=== PATIENT | female | born 1985 | race Hispanic/Latino ===

== ENCOUNTER 2021-09-06 19:39 | Emergency (ER) | payer OTHER ==
--- OUTSIDE RECORDS SUMMARY | 2021-09-06 19:43 | XMS REPORT | Continuity of Care Document ---
:1985 Author Organization [facility] t Address [address] [place] [address] Care Team Providers Name Role Phone Bird LEI Primary Care Physician Scooter Morley MD Attending Clinician Payers Payer Name Policy Type Policy Number Effective Date Expiration Date S ource Problems Condition Condition Condition Status Onset Resolution Last Treating Co mments Source Name Details Category Date Date Treatment Clinician Date External External Disease Active Unive rs hemorrhoid hemorrhoid 5-17 it y of s s 00:00: [place] 00 Medical Branch Grade II Grade II Disease Active Overview: Un joby internal internal 5-14 Formattin ity of hemorrhoid hemorrhoid 00:00: g of this [place] s s 00 note Medical might be Branch different from the original. Added automatic ally from request for surgery [id number] Sacroiliit Sacroiliit Disease Active Overview : Univers is is 2-11 Formattin ity of 00:00: g of this [place] 00 note Medical might be Branch different from the original. Added automatic ally from request for surgery [id number] Loose Loose Disease Active 2019-08 Overview: Univer s stools stools 0-02 Formattin ity of 00:00: g of this [place] 00 note Medical might be Branch different from the original. Added automatic ally from request for surgery [id number] Blood in Blood in Disease Active 2019-08 Overview: Un joby stool stool 0-02 Formattin ity of 00:00: g of this [place] 00 note Medical might be Branch different from the original. Added automatic ally from request for surgery [id number] Pre-eclamp Pre-eclamp Disease Active U nivers teodora teodora 9-12 ity of affecting affecting 00:[place] , , 00 Me dical antepartum antepartum Br anch Latex Latex Disease Active Univers allergy allergy 9-05 ity of 00:00: [place] 00 Medical Branch Sciatic Sciatic Disease Active Univers nerve nerve 7-01 ity of disease, disease, 00:00: [place] right right 00 Medical Branch Modified Modified Disease Active Unive rs White White 5-30 ity of class B class B 00:00: [place] pregestati pregestati 00 Me dical onal onal Branch diabetes diabetes mellitus mellitus Obesity Obesity Disease Active Univers (BMI (BMI 5-21 ity of 30-39.9) 30-39.9) 00:00: [place] 00 Medical Branch Chronic Chronic Disease Active Univers bilateral bilateral 8-21 ity of low back low back 00:00: [place] pain pain 00 Medical without without Branch sciatica sciatica Bronchitis Bronchitis Disease Active Overview : Univers Formattin ity of g of this [place] note Medical might be Branch different from the original. COPD v. asthma Anxiety Anxiety Disease Active Univers ity of [facility] Fatty Fatty Disease Active Univers liver liver ity of [facility] Allergies, Adverse Reactions, Alerts Allergy Allergy Status Severity Reaction(s) Onset Inactive Treating Comm ents Source Name Type Date Date Clinician Latex Propensi Active Rash 2005- Univers ty to 4-26 ity of adverse 00:00: [place] reaction 00 Medical s Branch Social History Social Habit Start Date Stop Date Quantity Comments Source History of tobacco 2016-12-31 Cigarette Smoker University of use 00:00:00 [facility] Exposure to Not sure [facility] SARS-CoV-2 (event) [facility] Alcohol intake 2021-09-06 2021-09-06 Current University of 00:00:00 00:00:00 non-drinker of [facility] alcohol Branch (finding) Cigarettes smoked 2020-11-26 2020-11-26 Univers ity of current (pack per 00:00:00 00:00:00 ) - Reported Branch Cigarette 2020-11-26 2020-11-26 University of pack-years 00:00:00 00:00:00 [facility] Tobacco use and 2020-11-26 2020-11-26 Never used Universit y of exposure 00:00:00 00:00:00 [facility] Tobacco Comment 2020-10-13 2020-10-13 vapes Universit y of 00:00:00 00:00:00 [facility] Sex Ass[birth year] At [birth year] Universit y of 00:00:00 00:00:00 [facility] Smoking Status Start Date Stop Date Source Former smoker 2020-11-26 00:00:00 2020-11-26 00:00:00 Universi ty [facility] Medications Ordered Filled Start Stop Current Ordering Indication Dosage Frequency Signature Comments Components Source Medication Medication Date Date Medication? Clinician (SIG) Name Name tera Yes 5mL Take 5 mL U nivers ifenesin 1-25 by mouth ity of 10-100 mg/5 00:00: every 4 [place] as mL oral 00 (four) Medical solution hours as Branch needed for Cough. Indication s: cough proMETHazin Yes [id number] 25mg Take 2 Univers e 12.5 mg 1-25 tablets by ity of tablet 00:00: mouth [place] 00 every 6 Medical (six) Branch hours as needed for Other (vertigo). insulin NPH Yes [id number] INJECT 20 Univers (NOVOLIN N 1-25 UNITS ity of NPH U-100 00:[place] INSULIN[place] 00 USLY ONCE Medica l 100 unit/mL DAILY WITH Br anch injection BREAKFAST escitalopra Yes [id number] 20mg Take 1 Univers m oxalate 1-25 tablet by ity o f (LEXAPRO) 00:00: mouth [place] 20 mg 00 daily. Medical tablet Branch NOVOLIN R Yes [id number] INJECT 15 Univers REGULAR 1-21 UNITS ity of U-100 00:00: SUBCUTANEO [place] INSULN 100 00 USLY THREE Med ical unit/mL TIMES Branch solution DAILY BEFORE MEAL(S) HYDROXYZINE Yes [id number] TAKE 1 TO Univers 25 mg 1-21 2 TABLETS ity of tablet 00:00: BY MOUTH [place] 00 EVERY 6 Medical HOURS Branch NEEDED FOR ANXIETY MONTELUKAST Yes [id number] Take 1 Univers 10 mg 1-03 tablet by ity of tablet 00:00: mouth once [place] 00 daily Medical Branch MELOXICAM 2020-08 Yes [id number] Take 1 Un joby 15 mg 2-23 tablet by ity of tablet 00:00: mouth once [place] 00 daily Medical Branch NUVARING 2020-08 Yes [id number] 1{each} Insert 1 Univers (NUVARING) 1-15 Each into ity of 0.12-0.015 00:00: vagina [place] mg/24 hr 00 once every Medic al vaginal month. Branch insert Insert vaginally and leave in place for 3 consecutiv e weeks, then remove for 1 week. gabapentin 2020-08 Yes [id number] 400mg Take 1 Univers 400 mg 1-15 9100 capsule by ity of capsule 00:00: mouth 3 (three) [facility] daily. metformin 2020-08 Yes [id number] TAKE 2 U nivers ER 500 mg 1-15 TABLETS BY ity of 24 hr 00:00: MOUTH ONCE [place] tablet 00 DAILY IN Medical THE Branch MORNING AND 3 ONCE DAILY IN THE EVENING. Needs follow up visit for further refills glyBURIDE 5 2020-08 Yes [id number] 5mg Take 1 Univers mg tablet 1-15 tablet by ity o f 00:00: mouth 2 (two) [facility] daily with meals. Needs follow up visit for further refills atorvastati 2020-08 Yes [id number] 20mg Take 1 Univers n 20 mg 1-15 tablet by ity of tablet 00:00: mouth at [place] 00 bedtime. Medical Branch Guaifenesin 2020-08 Yes [id number] 5 ml po q Univers 200 mg/5 mL 1-13 6 h prn ity o f Liqd 00:00: cough 00 Medical Branch mupirocin 2 2020-08 Yes [id number] Apply to Univers % ointment 0-25 area(s) 3 ity of 00:00: (three) [place] 00 times Medical daily. Branch semaglutide Yes [id number] 1mg inject 1 Univers (OZEMPIC) 1 9-13 mg under ity of mg/dose (2 00:00: the skin [place] as mg/1.5 mL) 00 weekly. Medica l PnIj Branch empaglifloz Yes [id number] 10mg Take 1 Univers in 9-13 tablet by ity of (JARDIANCE) 00:00: mouth [place] 00 daily. Medical Branch tiZANidine Yes [id number] 4mg Take 1 Univers 4 mg tablet 8-12 9100 tablet by ity of 00:00: mouth 3 [place] 00 (three) Medical times Branch daily as needed (muscle spasm). albuterol Yes [id number] 2{puff} Inhale 2 Univers 90 7-07 Puffs ity of mcg/actuati 00:00: every 6 [place] as on inhaler 00 (six) Medical hours as Branch needed for Wheezing or Shortness of Breath. hydrocortis Yes [id number] 1{appli Insert 1 Univers one-pramovi 5-03 cator} Applicator ity of ne rectal 00:00: into [place] foam 00 rectum 2 Medical (two) Branch times daily. Insulin 2019-08 Yes Use as Univers Syringe-Nee 1-12 directed ity of dle U-100 1 00:00: [place] mL 31 gauge 00 Medical x 12/26 Syrg Branch Immunizations Ordered Filled Immunization Date Status Comments [facility] e Immunization Name Name Influenza Virus 2021-07-01 Completed Universit y of Vaccine Quad .5 mL 00:00:00 [facility] IM 6+ MO Branch Pneumococcal 2020-07-13 Completed [place] o f Polysaccharide, 00:00:00 [facility] ical PPSV23 (PNEUMOVAX) Branch Influenza Virus 2020-05-13 Completed Universit y of Vaccine Quad .5 mL 00:00:00 [place] [facility] IM 6+ MO Branch Influenza Virus 2017-05-29 Completed Universit y of Vaccine Quad IM 3+ 00:00:00 [facility] YRS Branch MMR 2017-04-29 Completed [facility] 00:00:00 [facility] TDAP 2017-02-28 Completed [facility] 00:00:00 [facility] TDAP 2012-08-26 Completed [facility] 00:00:00 [facility] Procedures This patient has no known procedures. Plan of Care Planned Activity Planned Date Details Comments Source Encounters Start End Encounter Admission Attending Care Care Encounter Source Date/Time Date/Time Type Type Clinicians Facility Department ID 2021-09-06 2021-09-06 Telephone CAROLE Morley [id number] Univers 00:00:00 00:00:00 Bautista WHEELER [id number] ity of Scooter LUCAS [id number] [facility] [id number] [facility] AND JAVIER [facility] Branch DIABETES [facility]IC Results This patient has no known results.
[2021-09-06] MEDS ORDERED: ACETAMINOPHEN 325 MG TABLET ONE (22:06)
[2021-09-06] MEDS ORDERED: NA CHLORIDE 0.9% 1,000 ML ONE (22:07)
[2021-09-06] MEDS ORDERED: MEPERIDINE HCL 25 MG/ML SYR ONE (22:07)
[2021-09-06] MEDS ORDERED: ONDANSETRON 4 MG/2 ML VIAL ONE (22:07)
[2021-09-06 22:26] LABS: Absolute Lymphocytes (CBC) 2.4 K/uL (0.7-4.9); Hematocrit 42.9 % (36.0-45.0); Lymphocytes % 21.9 % (15.3-44.8); MPV 10.2 fL (7.6-11.3); RBC Red Blood Cell Count 4.83 M/uL (3.86-4.86)
[2021-09-06 23:02] LABS: ALT/SGPT 24 U/L (12-78); AST/SGOT 8 U/L (15-37); Alkaline Phosphatase 48 U/L (45-117); BUN Blood Urea Nitrogen 23 mg/dL (7-18); Bicarbonate 24 mmol/L (21-32); Bilirubin Direct < 0.1 mg/dL (0-0.2); Bilirubin Total 0.4 mg/dL (0.2-1.0); Glucose Level 82 mg/dL (74-106); Lipase 335 U/L (73-393); Potassium 3.7 mmol/L (3.5-5.1); Protein, Total 8.3 g/dL (6.4-8.2); Sodium Level 142 mmol/L (136-145)
[2021-09-06 23:18] LABS: SARS-COV-2 RT PCR NEGATIVE (NEGATIVE)
--- NOTE | 2021-09-06 23:45 | ER ---
Nurse's Notes [facility] Name: Kelsey Harrell Age: 36 yrs Sex: Female : 1985 Arrival Date: 09/06/2021 Time: 19:44 Bed 23 Private MD: Diagnosis: Headache Presentation: 09/06 20:39 Chief complaint: Patient states: Ever since my lateral injections in my back I have had ll3 had N/V, dizziness, and headaches that causes my eye to twitch, symptoms started to get bad about 1 week ago. Coronavirus screen: cough unrelated to allergies, fatigue, headache, nausea, vomiting. Client presents with at least one sign or symptom that may indicate coronavirus-19. Standard/surgical mask placed on the client. Ebola Screen: No symptoms or risks identified at this time. Initial Sepsis Screen: Does the patient meet any 2 criteria? No. Patient's initial sepsis screen is negative. Initial Sepsis Screen: Does the patient have a suspected source of infection? No. Patient's initial sepsis screen is negative. Risk Assessment: Do you want to hurt yourself or someone else? Patient reports no desire to harm self or others. Onset of symptoms was August 30, 2021. 20:39 Method Of Arrival: Ambulatory ll3 20:39 Acuity: LENA 3 ll3 Triage Assessment: 20:48 Headache History: Other Since last week. General: Appears in no apparent distress. ll3 uncomfortable, Behavior is calm, cooperative, anxious. Pain: Complains of pain in H/A, Abdominal pain Pain currently is 6 out of 10 on a pain scale. Pain began last week. Pain: Also complains of nausea, inability to concentrate. EENT: Reports blurred vision nasal discharge ringing in right ear and left ear Denies nasal congestion. Neuro: Level of Consciousness is awake, alert, obeys commands, Oriented to person, place, time, situation, Reports dizziness, headache that is the "worst ever", H/A causes eyes to twitch . Cardiovascular: Patient's skin is warm and dry. Respiratory: Respiratory effort is even, unlabored, Respiratory pattern is regular, symmetrical, Breath sounds are clear bilaterally. GI: Abdomen is round non-distended, Bowel sounds present X 4 quads. Abd is soft and non tender X 4 quads. Reports epigastric pain, gaseousness, intolerance of fluids, intolerance of food, nausea, vomiting. Derm: Skin is pink, warm \\T\\ dry. 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 - Social history:: Smoking status: Patient reports the use of cigarette tobacco products, denies chronic smoking, but will smoke occasionally, Reported history of juuling and/or vaping. - Family history:: not pertinent. - Hospitalizations: : No recent hospitalization is reported. Screenin:49 Abuse screen: Denies threats or abuse. Denies injuries from another. Nutritional ab2 screening: No deficits noted. Tuberculosis screening: No symptoms or risk factors identified. Fall Risk None identified. Assessment: 21:48 General: Appears in no apparent distress. comfortable, Behavior is calm, cooperative, ab2 appropriate for age. Pain: Complains of pain in face, right ear and left ear Pain currently is 8 out of 10 on a pain scale. Neuro: Level of Consciousness is awake, alert, obeys commands, Oriented to person, place, time, situation, Appropriate for age Rectification Printer are equal bilaterally Moves all extremities. Gait is steady, Speech is normal, Facial symmetry appears normal. Neuro: Reports headache in entire. Cardiovascular: No deficits noted. Denies chest pain, shortness of breath, Patient's skin is warm and dry. Chest pain is denied. Respiratory: No deficits noted. Airway is patent Denies cough, shortness of breath. GI: Reports nausea, vomiting. GI: Abdomen is round obese, Bowel sounds present X 4 quads. : No deficits noted. No signs and/or symptoms were reported regarding the genitourinary system. EENT: No deficits noted. No signs and/or symptoms were reported regarding the EENT system. Derm: No deficits noted. No signs and/or symptoms reported regarding the dermatologic system. Musculoskeletal: Reports pain in back since chronic. 09/07 00:09 Reassessment: Patient is alert, oriented x 3, equal unlabored respirations, skin bb warm/dry/pink. pt verbalized understanding of and agrees to plan of care discharge instructions given pt ambulated with steady gait to exit. Vital Signs: 09/06 20:39 BP 123 / 80; Pulse 86; Resp 18; Temp 99.1(TE); Pulse Ox 97% on R/A; Weight 92.08 kg ll3 (R); Height 5 ft. 4 in. (162.56 cm) (R); Pain 6/10; 21:50 BP 124 / 68; Pulse 88; Resp 17; Pulse Ox 98% on R/A; ab2 09/07 00:10 BP 129 / 75; Pulse 71; Resp 16 S; Temp 98.4(O); Pulse Ox 99% on R/A; bb 09/06 20:39 Body Mass Index 34.84 (92.08 kg, 162.56 cm) ll3 [place] Coma Score: 09/06 23:43 Eye Response: spontaneous(4). Verbal Response: oriented(5). Motor Response: obeys rn commands(6). Total: 15. ED Course: 19:44 Patient arrived in ED. es 20:48 Triage completed. ll3 20:48 Arm band placed on. ll3 21:45 Emeka Frederick is Primary Nurse. ab2 21:45 Dez Nunn MD is Attending Physician. rn 21:49 No provider procedures requiring assistance completed. ab2 21:50 Patient has correct armband on for positive identification. Bed in low position. Call ab2 light in reach. Side rails up X2. 22:13 Strep Sent. ab2 22:13 Basic Metabolic Panel Sent. ab2 22:13 CBC with Diff Sent. ab2 22:13 Hepatic Function Sent. ab2 22:13 Lipase Sent. ab2 23:44 Skyler iHnds MD is Referral Physician. rn 09/07 00:11 IV discontinued, intact, bleeding controlled, No redness/swelling at site. Pressure bb dressing applied. Administered Medications: 09/06 22:13 Drug: NS 0.9% 1000 ml Route: IV; Rate: 1000 ml; Site: left antecubital; ab2 23:53 Follow up: IV Status: Completed infusion; IV Intake: 1000ml bb 22:13 Drug: Zofran (Ondansetron) 4 mg Route: IVP; Site: left antecubital; ab2 23:53 Follow up: Response: No adverse reaction bb 22:13 Drug: Tylenol 650 mg Route: PO; ab2 23:53 Follow up: Response: No adverse reaction bb 22:13 Drug: Demerol (meperidine) 25 mg Route: IVP; Site: left antecubital; ab2 23:53 Follow up: Response: No adverse reaction; RASS: Alert and Calm (0) bb 09/07 00:01 Drug: Ketorolac 30 mg Route: IVP; Site: left antecubital; bb 00:09 Follow up: Response: No adverse reaction bb Intake: 09/06 23:53 IV: 1000ml; Total: 1000ml. bb Outcome: 23:44 Discharge ordered by . rn 09/07 00:10 Discharged to home ambulatory. bb Condition: stable Discharge instructions given to patient, Instructed on discharge instructions, follow up and referral plans. 00:11 Patient left the ED. bb Signatures: Lara Villarreal Brenda, RN RN bb Dez Nunn MD MD rn Loubet, Lynsea, RN RN ll3 Emeka Frederick2
--- NOTE | 2021-09-06 23:45 | EDPHYS ---
Physician Documentation [facility] Name: Kelsey Harrell Age: 36 yrs Sex: Female : 1985 Arrival Date: 09/06/2021 Time: 19:44 Bed 23 Private MD: ED Physician Dez Nunn HPI: 09/06 22:06 This 36 yrs old Female presents to ER via Ambulatory with complaints of rn Headache, Nausea, chills, cough. 22:06 The patient complains of pain to the top of head and forehead. The patient describes rn the headache as aching. Onset: The symptoms/episode began/occurred 1 week(s) ago. Associated signs and symptoms: Pertinent positives: cough and congestion, Pertinent negatives: altered mental status, neck stiffness, rash, vision changes, vision loss. Severity of symptoms: At its worst the pain was moderate, in the emergency department the pain is unchanged. Headache History: The patient has had previous headaches and this one is more severe than previous episodes. The symptoms are alleviated by nothing. the symptoms are aggravated by nothing. The patient has experienced a previous episode. The patient has been recently seen by a physician:. Patient reports had back injections for chronic back pain 1 to 2 weeks ago, since then has been having intermittent headaches, not improving, associated with congestion/cough/fatigue. Reports history of migraines when he was younger but nothing recently. No trauma. No fever. Reports chills. Called the clinic and told to come to the ER for evaluation. Also reports nausea. Took a home test and was negative.. 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 - Social history:: Smoking status: Patient reports the use of cigarette tobacco products, denies chronic smoking, but will smoke occasionally, Reported history of juuling and/or vaping. - Family history:: not pertinent. - Hospitalizations: : No recent hospitalization is reported. ROS: 22:06 Constitutional: Positive for chills Eyes: Negative for injury, pain, redness, and clinical appeals rn, ENT: Positive for cough and congestion Cardiovascular: Negative for chest pain, palpitations, and edema, Respiratory: Positive for cough, negative for shortness of breath Abdomen/GI: Negative for abdominal pain, positive for nausea and vomiting MS/Extremity: Negative for injury and deformity, Skin: Negative for injury, rash, and discoloration, Neuro: Negative for numbness, tingling, and seizure. Exam: 22:06 Constitutional: This is a well developed, well nourished patient who is awake, alert, rn and in no acute distress. Head/Face: Normocephalic, atraumatic. Eyes: Periorbital areas with no swelling, redness, or edema. ENT: No stridor, clear his throat frequently, no swelling Neck: Trachea midline, no thyromegaly or masses palpated, and no cervical lymphadenopathy. Supple, full range of motion without nuchal rigidity, or vertebral point tenderness. No Meningismus. Cardiovascular: Regular rate and rhythm. No pulse deficits. Respiratory: Speaking full sentences, unlabored. No increased work of breathing, no retractions or nasal flaring. Abdomen/GI: Soft, non-tender Skin: Warm, dry MS/ Extremity: Pulses equal, no cyanosis. Neuro: Awake and alert, GCS 15, oriented to person, place, time, and situation. Cranial nerves II-XII grossly intact. Motor strength 5/5 in all extremities. Sensory grossly intact. Cerebellar exam normal. Vital Signs: 20:39 BP 123 / 80; Pulse 86; Resp 18; Temp 99.1(TE); Pulse Ox 97% on R/A; Weight 92.08 kg ll3 (R); Height 5 ft. 4 in. (162.56 cm) (R); Pain 6/10; 21:50 BP 124 / 68; Pulse 88; Resp 17; Pulse Ox 98% on R/A; ab2 09/07 00:10 BP 129 / 75; Pulse 71; Resp 16 S; Temp 98.4(O); Pulse Ox 99% on R/A; bb 09/06 20:39 Body Mass Index 34.84 (92.08 kg, 162.56 cm) ll3 [place] Coma Score: 09/06 23:43 Eye Response: spontaneous(4). Verbal Response: oriented(5). Motor Response: obeys rn commands(6). Total: 15. MDM: 21:45 Patient medically screened. rn 23:43 Differential diagnosis: cluster headache, migraine, sinusitis, tension headache, rn vasomotor headache. Data reviewed: vital signs, nurses notes, lab test result(s), and as a result, I will discharge patient. Counseling: I had a detailed discussion with the patient and/or guardian regarding: the historical points, exam findings, and any diagnostic results supporting the discharge/admit diagnosis, lab results, the need for outpatient follow up, to return to the emergency department if symptoms worsen or persist or if there are any questions or concerns that arise at home. Response to treatment: the patient's symptoms have mildly improved after treatment, and as a result, I will discharge patient. Special discussion: I discussed with the patient/guardian in detail that at this point there is no indication for admission to the hospital. It is understood, however, that if the symptoms persist or worsen the patient needs to return immediately for re-evaluation. Based on the history and exam findings, there is no indication for further emergent testing or inpatient evaluation. I discussed with the patient/guardian the need to see the neurologist for further evaluation of the symptoms. ED course: Patient feels better, headache still present but improved. No acute findings on lab work or swabs. Normal neurological exam. No indication for emergent CT of the head at this time. Patient has a history of migraines that may be returning. Recommend neurology follow-up.. 09/06 22:00 Order name: COVID-19/FLU A+B (Document "Date of Onset" if Symptomatic); Complete Time: bb 09/06 22:02 Order name: Basic Metabolic Panel; Complete Time: :09/06 22:02 Order name: CBC with Diff; Complete Time: :09/06 22:02 Order name: Hepatic Function; Complete Time: :09/06 22:02 Order name: Lipase; Complete Time: :09/06 22:02 Order name: Strep; Complete Time: :09/06 22:02 Order name: IV Saline Lock; Complete Time: :09/06 22:02 Order name: Labs collected and sent; Complete Time: :09/06 22:55 Order name: Throat Culture EDMS Administered Medications: 22:13 Drug: NS 0.9% 1000 ml Route: IV; Rate: 1000 ml; Site: left antecubital; ab2 23:53 Follow up: IV Status: Completed infusion; IV Intake: 1000ml bb 22:13 Drug: Zofran (Ondansetron) 4 mg Route: IVP; Site: left antecubital; ab2 23:53 Follow up: Response: No adverse reaction bb 22:13 Drug: Tylenol 650 mg Route: PO; ab2 23:53 Follow up: Response: No adverse reaction bb 22:13 Drug: Demerol (meperidine) 25 mg Route: IVP; Site: left antecubital; ab2 23:53 Follow up: Response: No adverse reaction; RASS: Alert and Calm (0) bb 09/07 00:01 Drug: Ketorolac 30 mg Route: IVP; Site: left antecubital; bb 00:09 Follow up: Response: No adverse reaction bb Disposition Summary: 09/06/21 23:44 Discharge Ordered Location: Home rn Problem: an ongoing problem rn Symptoms: have improved rn Condition: Stable rn Diagnosis - Headache rn Followup: rn - With: Skyler Hinds MD - When: As needed - Reason: Recheck today's complaints, Re-evaluation by your physician Discharge Instructions: - Discharge Summary Sheet rn - General Headache Without Cause rn - Migraine Headache rn Forms: - Medication Reconciliation Form rn - Thank You Letter rn - Work release form bb - Antibiotic appeals rn - Prescription Opioid Use rn Signatures: Dispatcher [employer] Vaishali Pérez RN RN Dez Gardner MD MD rn Loubet, Lynsea, RN RN 3 Emeka Frederick ab2
[2021-09-06] MEDS ORDERED: KETOROLAC 30 MG/ML INJ ONE (23:58)
[2021-09-07 00:45] VITALS: BP 129/75; TEMP 98.4; O2SAT 99
== END 2021-09-07 00:11 | disposition home or self-care (01) ==
LOC: ER 19:39
DX: R51.9 Headache, unspecified (principal); Z20.822 Contact with and (suspected) exposure to COVID-19; F17.210 Nicotine dependence, cigarettes, uncomplicated; Z91.040 Latex allergy status; Z91.048 Other nonmedicinal substance allergy status
CPT/HCPCS: 87070; 85025; 80048; 36415; 80076; 87081; 83690; 0240U; J2175; J7030; J2405; 96361; 96374; 96375; 99283

== ENCOUNTER 2021-10-18 12:09 | Emergency (ER) | payer OTHER ==
--- OUTSIDE RECORDS SUMMARY | 2021-10-18 12:14 | XMS REPORT | Continuity of Care Document ---
:1985 Author Organization [facility] t Address [address] [place] [address] Care Team Providers Name Role Phone BIRD Primary Care Physician Unavailable DRISS CORLEY Attending Clinician Unavailable SCOOTER MORLEY Attending Clinician Unavailable BEBA FERRARI Attending Clinician Unavailable BEBA FERRARI Attending Clinician Unavailable Bird LEI Attending Clinician BIRD Attending Clinician Unavailable Scooter Morley MD Attending Clinician Payers Payer Name Policy Type Policy Number Effective Date Expiration Date [facility] [id number] 2020 00:00:00 Problems Condition Condition Condition Status Onset Resolution [...] Added automatic ally from request for surgery [id number] Sacroiliit Sacroiliit Disease Active Overview : Univers is is 2-11 Formattin ity of 00:00: g of this [place] 00 note Medical might be Branch different from the original. Added automatic ally from request for surgery [id number] Loose Loose Disease Active 2019-08 Overview: Univer s stools stools 0-02 Formattin ity of 00:00: g of this [place] note Medical might be Branch different from the original. Added automatic ally from request for surgery [id number] Blood in Blood in Disease Active 2019-08 Overview: Un joby stool stool 0-02 Formattin ity of 00:00: g of this [place] 00 note Medical might be Branch different from the original. Added automatic ally from request for surgery [id number] Pre-eclamp Pre-eclamp Disease Active U nivers teodora teodora 9-12 [place]y of affecting affecting 00:[place] , , 00 Me dical antepartum antepartum Br anch Latex Latex Disease Active Univers allergy allergy 9- ity of 00:00: [place] 00 Medical Branch Sciatic Sciatic Disease Active Univers nerve nerve 7- ity of disease, disease, 00:00: [place] right [...] Univers Formattin ity of g of this [place] note Medical might be Branch different from the original. COPD v. asthma Anxiety Anxiety Disease Active Univers ity of [facility] Branch Fatty Fatty Disease Active Univers liver liver ity of [facility] Allergies, Adverse Reactions, Alerts Allergy Allergy Status Severity Reaction(s) Onset Inactive Treating Comm ents Source Name Type Date Date Clinician Latex Propensi Active Rash Univers ty to - ity of adverse 00:00: [place] reaction 00 Medical s Branch LATEX DRUG Active Rash Univers INGREDI - ity of 00:00: [place] 00 Medical Branch Social History Social Habit Start Date Stop Date Quantity Comments Source History of tobacco 2016-12-31 Cigarette Smoker University of use 00:00:00 [facility] Exposure to Not sure University SARS-CoV-2 (event) [facility] Alcohol intake 2021-09-06 2021-09-06 Current University of 00:00:00 00:00:00 non-drinker of [facility] alcohol Branch (finding) Cigarettes smoked 2020-11-26 2020-11-26 Univers ity of current (pack per 00:00:00 00:00:00 [facility] ) - Reported Branch Cigarette 2020-11-26 2020-11-26 University of pack-years 00:00:00 00:00:00 [facility] Tobacco use and 2020-11-26 2020-11-26 Never used Universit y of exposure 00:00:00 00:00:00 [facility] Tobacco Comment 2020-10-13 2020-10-13 vapes Universit y of 00:00:00 00:00:00 [facility] Sex Ass[birth year] At [birth year] Universit y of 00:00:00 00:00:00 [facility] Smoking Status Start Date Stop Date Source Former smoker 2020-11-26 00:00:00 2020-11-26 00:00:00 Universi ty of [facility] Medications Ordered Filled Start Stop Current Ordering Indication Dosage Frequency Signature Comments Components Source Medication Medication Date Date Medication? Clinician (SIG) Name Name GABAPENTIN Yes [id number] TAKE 1 Univers 400 mg 2-24 9100 CAPSULE BY ity of capsule 00:00: MOUTH THREE Medical TIMES [place] DAILY ONDANSETRON Yes [id number] DISSOLVE 1 Univers 4 mg 2-15 TABLET IN ity of disintegrat 00:00: MOUTH [place] ing tablet 00 EVERY 8 Medica l HOURS Branch NEEDED FOR NAUSEA AND VOMITING FOR UP TO 4 DAYS ONDANSETRON Yes [id number] DISSOLVE 1 Univers 4 mg 2-15 TABLET IN ity of disintegrat 00:00: MOUTH [place] ing tablet 00 EVERY 8 Medica l HOURS Branch NEEDED FOR NAUSEA AND VOMITING FOR UP TO 4 DAYS MELOXICAM Yes [id number] Take 1 Un joby 15 mg 2-04 tablet by ity of tablet 00:00: mouth once daily Medical Branch MELOXICAM Yes [id number] Take 1 Un joby 15 mg 2-04 tablet by ity of tablet 00:00: mouth once daily Medical Branch codeine-gua 2022-0 Yes 5mL Take 5 mL U nivers ifenesin 1-25 by mouth ity of 10-100 mg/5 00:00: every 4 [place] as mL oral 00 (four) Medical solution hours as Branch needed for Cough. Indication s: cough proMETHazin 0 Yes [id number] 25mg Take 2 Univers e 12.5 mg 1-25 tablets by ity of tablet 00:00: mouth [place] 00 every 6 Medical (six) Branch hours as needed for Other (vertigo). insulin NPH Yes [id number] INJECT 20 Univers (NOVOLIN N 1-25 UNITS ity of NPH U-100 00:00: [place]O [place] INSULIN[place] 00 USLY ONCE Medica l 100 unit/mL DAILY WITH Br anch injection BREAKFAST escitalopra Yes [id number] 20mg Take 1 Univers m oxalate 1-25 tablet by ity o f (LEXAPRO) 00:00: mouth [place] 20 mg 00 daily. Medical tablet Branch codeine-gua 0 Yes 5mL Take 5 mL U nivers ifenesin 1-25 by mouth ity of 10-100 mg/5 00:00: every 4 [place] mL oral 00 (four) Medical solution hours as Branch needed for Cough. Indication s: cough proMETHazin Yes [id number] 25mg Take 2 Univers e 12.5 mg 1-25 tablets by ity of tablet 00:00: mouth [place] 00 every 6 Medical (six) Branch hours as needed for Other (vertigo). insulin NPH Yes [id number] INJECT 20 Univers (NOVOLIN N 1-25 UNITS ity of NPH U-100 00:00: [place]O [place] INSULIN) 00 USLY ONCE Medica l 100 unit/mL DAILY WITH Br anch injection BREAKFAST escitalopra 0 Yes [id number] 20mg Take 1 Univers m oxalate 1-25 tablet by ity o f (LEXAPRO) 00:00: mouth [place] 20 mg 00 daily. Medical tablet Branch codeine-gua 0 Yes 5mL Take 5 mL U nivers ifenesin 1-25 by mouth ity of 10-100 mg/5 00:00: every 4 [place] mL oral 00 (four) Medical solution hours as Branch needed for Cough. Indication s: cough proMETHazin Yes [id number] 25mg Take 2 Univers e 12.5 mg 1-25 tablets by ity of tablet 00:00: mouth [place] 00 every 6 Medical (six) Branch hours as needed for Other (vertigo). insulin NPH Yes [id number] INJECT 20 Univers (NOVOLIN N 1-25 UNITS ity of NPH U-100 00:00: [place]BC[place]ANEO [place] INSULIN) 00 USLY ONCE Medica l 100 unit/mL DAILY WITH Br anch injection BREAKFAST escitalopra Yes [id number] 20mg Take 1 Univers m oxalate 1-25 tablet by ity o f (LEXAPRO) 00:00: mouth [place] 20 mg 00 daily. Medical tablet Branch NOVOLIN R Yes [id number] INJECT 15 Univers REGULAR 1-21 UNITS ity of U-100 00:00: [facility] [place] INSULN 100 00 USLY THREE Med ical unit/mL TIMES Branch solution DAILY BEFORE MEAL(S) HYDROXYZINE Yes [id number] TAKE 1 TO Univers 25 mg 1-21 2 TABLETS ity of tablet 00:00: BY MOUTH [place] 00 EVERY 6 Medical HOURS Branch NEEDED FOR ANXIETY NOVOLIN R Yes [id number] INJECT 15 Univers REGULAR 1-21 UNITS ity of U-100 00:00: SUBCUTANEO [place] INSULN 100 00 USLY THREE Med ical unit/mL TIMES Branch solution DAILY BEFORE MEAL(S) HYDROXYZINE Yes [id number] TAKE 1 TO Univers 25 mg 1-21 2 TABLETS ity of tablet 00:00: BY MOUTH [place] 00 EVERY 6 Medical HOURS Branch NEEDED FOR ANXIETY NOVOLIN R Yes [id number] INJECT 15 Univers REGULAR 1-21 UNITS ity of U-100 00:00: [facility] [place] INSULN 100 00 USLY THREE Med ical unit/mL TIMES Branch solution DAILY BEFORE MEAL(S) HYDROXYZINE Yes [id number] TAKE 1 TO Univers 25 mg 1-21 2 TABLETS ity of tablet 00:00: BY MOUTH [place] 00 EVERY 6 Medical HOURS Branch NEEDED FOR ANXIETY MONTELUKAST Yes [id number] Take 1 Univers 10 mg 1-03 tablet by ity of tablet 00:00: mouth once [place] 00 daily Medical Branch MONTELUKAST Yes [id number] Take 1 Univers 10 mg 1-03 tablet by ity of tablet 00:00: mouth once [place] 00 daily Medical Branch MONTELUKAST Yes [id number] Take 1 Univers 10 mg 1-03 tablet by ity of tablet 00:00: mouth once [place] 00 daily Medical Branch MELOXICAM 2020-08 Yes [id number] Take 1 Un joby 15 mg 2-23 tablet by ity of tablet 00:00: mouth once [place] 00 daily Medical Branch MELOXICAM 2020-08- No [id number] Take 1 U nivers 15 mg 2-23 02-04 tablet by ity of tablet 00:00: 00:00 mouth once [place] 00 :00 daily Medical Branch MELOXICAM 2020-08- No [id number] Take 1 U nivers 15 mg 2-23 02-04 tablet by ity of tablet 00:00: 00:00 mouth once [place] 00 :00 daily Medical Branch HYDROXYZINE 2020-08- No [id number] TAKE 1 TO Univers 25 mg 2-21 -21 2 TABLETS ity of tablet 00:00: 00:00 BY MOUTH [place] 00 :00 EVERY 6 Medical HOURS Branch NEEDED FOR ANXIETY codeine-gua 2020-08- No 5mL Take 5 mL Univers ifenesin 2-08 -25 by mouth ity of 10-100 mg/5 00:00: 00:00 every 4 [place] mL oral 00 :00 (four) Medical solution hours as Branch needed for Cough. Indication s: cough codeine-gua 2020-08- No 5mL Take 5 mL Univers ifenesin 2-08 -25 by mouth ity of 10-100 mg/5 00:00: 00:00 every 4 [place] mL oral 00 :00 (four) Medical solution hours as Branch needed for Cough. Indication s: cough NUVARING 2020-08 Yes [id number] 1{each} Insert 1 Univers (NUVARING) 1-15 Each into ity of 0.12-0.015 00:00: vagina [place] mg/24 hr 00 once every Medic al vaginal month. Branch insert Insert vaginally and leave in place for 3 consecutiv e weeks, then remove for 1 week. gabapentin 2020-08 Yes [id number] 400mg Take 1 Univers 400 mg 1-15 9100 capsule by ity of capsule 00:00: mouth 3 [place] 00 (three) [facility] daily. metformin 2020-08 Yes [id number] TAKE 2 U nivers ER 500 mg 1-15 TABLETS BY ity of 24 hr 00:00: MOUTH ONCE [place] tablet [address] [facility] MORNING AND 3 ONCE DAILY IN THE EVENING. Needs follow up visit for further refills glyBURIDE 5 2020-08 Yes [id number] 5mg Take 1 Univers mg tablet 1-15 tablet by ity o f 00:00: mouth 2 [place] 00 (two) [facility] daily with meals. Needs follow up visit for further refills atorvastati 2020-08 Yes [id number] 20mg Take 1 Univers n 20 mg 1-15 tablet by ity of tablet 00:00: mouth at [place] 00 bedtime. [facility] NUVARING 2020-08 Yes [id number] 1{each} Insert 1 Univers (NUVARING) 1-15 Each into ity of 0.12-0.015 00:00: vagina [place] mg/24 hr 00 once every Medic al vaginal month. Branch insert Insert vaginally and leave in place for 3 consecutiv e weeks, then remove for 1 week. gabapentin 2020-08 Yes [id number] 400mg Take 1 Univers 400 mg 1-15 9100 capsule by ity of capsule 00:00: mouth 3 00 (three) [facility] daily. metformin 2020-08 Yes [id number] TAKE 2 U nivers ER 500 mg 1-15 TABLETS BY ity of 24 hr 00:00: MOUTH ONCE [place] tablet [address] [facility] MORNING AND 3 ONCE DAILY IN THE EVENING. Needs follow up visit for further refills glyBURIDE 5 2020-08 Yes [id number] 5mg Take 1 Univers mg tablet 1-15 tablet by ity o f 00:00: mouth 2 [place] 00 (two) [facility] daily with meals. Needs follow up visit for further refills atorvastati 2020-08 Yes [id number] 20mg Take 1 Univers n 20 mg 1-15 tablet by ity of tablet 00:00: mouth at [place] 00 bedtime. [facility] NUVARING 2020-08 Yes [id number] 1{each} Insert 1 Univers (NUVARING) 1-15 Each into ity of 0.12-0.015 00:00: vagina [place] mg/24 hr 00 once every Medic al vaginal month. Branch insert Insert vaginally and leave in place for 3 consecutiv e weeks, then remove for 1 week. metformin 2020-08 Yes [id number] TAKE 2 U nivers ER 500 mg 1-15 TABLETS BY ity of 24 hr 00:00: MOUTH ONCE [place] tablet [address] [facility] MORNING AND 3 ONCE DAILY IN THE EVENING. Needs follow up visit for further refills glyBURIDE 5 2020-08 Yes [id number] 5mg Take 1 Univers mg tablet 1-15 tablet by ity o f 00:00: mouth 2 [place] 00 (two) [facility] daily with meals. Needs follow up visit for further refills atorvastati 2020-08 Yes [id number] 20mg Take 1 Univers n 20 mg 1-15 tablet by ity of tablet 00:00: mouth at [place] 00 bedtime. [facility] NUVARING 2020-08 Yes [id number] 1{each} Insert 1 Univers (NUVARING) 1-15 Each into ity of 0.12-0.015 00:00: vagina [place] mg/24 hr 00 once every Medic al vaginal month. Branch insert Insert vaginally and leave in place for 3 consecutiv e weeks, then remove for 1 week. gabapentin 2020-08 Yes [id number] 400mg Take 1 Univers 400 mg 1-15 9100 capsule by ity of capsule 00:00: mouth 3 [place] 00 (three) [facility] daily. metformin 2020-08 Yes [id number] TAKE 2 U nivers ER 500 mg 1-15 TABLETS BY ity of 24 hr 00:00: MOUTH ONCE [place] tablet [address] [facility] MORNING AND 3 ONCE DAILY IN THE EVENING. Needs follow up visit for further refills glyBURIDE 5 2020-08 Yes [id number] 5mg Take 1 Univers mg tablet 1-15 tablet by ity o f 00:00: mouth 2 [place] 00 (two) [facility] daily with meals. Needs follow up visit for further refills atorvastati 2020-08 Yes [id number] 20mg Take 1 Univers n 20 mg 1-15 tablet by ity of tablet 00:00: mouth at [place] 00 bedtime. [facility] gabapentin 2020-08 202- No [id number] 400mg Take 1 Univers 400 mg 1-15 02-24 9100 capsule by ity of capsule 00:00: 00:00 mouth 3 [place] 00 :00 (three) Medical times Branch daily. Guaifenesin 2020-08 Yes [id number] 5 ml po q Univers 200 mg/5 mL 1-13 6 h prn ity o f Liqd 00:00: cough Medical Branch Guaifenesin 2020-08 Yes [id number] 5 ml po q Univers 200 mg/5 mL 1-13 6 h prn ity o f Liqd 00:00: cough Medical Branch Guaifenesin 2020-08 Yes [id number] 5 ml po q Univers 200 mg/5 mL 1-13 6 h prn ity o f Liqd 00:00: cough Medical Branch Guaifenesin 2020-08 Yes [id number] 5 ml po q Univers 200 mg/5 mL 1-13 6 h prn ity o f Liqd 00:00: cough Medical Branch montelukast 2020-08- No [id number] 10mg Take 1 Univers (SINGULAIR) 1-13 08-15 tablet by it y of 10 mg 00:00: 00:00 mouth [place] tablet 00 :00 daily. Medical Branch mupirocin 2 2020-08 Yes [id number] Apply to Univers % ointment 0-25 area(s) 3 ity of 00:00: (three) [place] 00 times Medical daily. Branch mupirocin 2 2020-08 Yes [id number] Apply to Univers % ointment 0-25 area(s) 3 ity of 00:00: (three) [place] 00 times Medical daily. Branch mupirocin 2 2020-08 Yes [id number] Apply to Univers % ointment 0-25 area(s) 3 ity of 00:00: (three) [place] 00 times Medical daily. Branch mupirocin 2 2020-08 Yes [id number] Apply to Univers % ointment 0-25 area(s) 3 ity of 00:00: (three) [place] 00 times Medical daily. Branch semaglutide Yes [id number] 1mg inject 1 Univers (OZEMPIC) 1 9-13 mg under ity of mg/dose (2 00:00: the skin [place] as mg/1.5 mL) 00 weekly. Medica l PnIj Branch empaglifloz Yes [id number] 10mg Take 1 Univers in 9-13 tablet by ity of (JARDIANCE) 00:00: mouth [place] 00 daily. Medical Branch semaglutide Yes [id number] 1mg inject 1 Univers (OZEMPIC) 1 9-13 mg under ity of mg/dose (2 00:00: the skin [place] as mg/1.5 mL) 00 weekly. Medica l PnIj Branch empaglifloz Yes [id number] 10mg Take 1 Univers in 9-13 tablet by ity of (JARDIANCE) 00:00: mouth [place] 00 daily. Medical Branch semaglutide Yes [id number] 1mg inject 1 Univers (OZEMPIC) 1 9-13 mg under ity of mg/dose (2 00:00: the skin [place] mg/1.5 mL) 00 weekly. Medica l PnIj Branch empaglifloz Yes [id number] 10mg Take 1 Univers in 9-13 tablet by ity of (JARDIANCE) 00:00: mouth [place] 00 daily. Medical Branch semaglutide Yes [id number] 1mg inject 1 Univers (OZEMPIC) 1 9-13 mg under ity of mg/dose (2 00:00: the skin [place] mg/1.5 mL) 00 weekly. Medica l PnIj Branch empaglifloz Yes [id number] 10mg Take 1 Univers in 9-13 tablet by ity of (JARDIANCE) 00:00: mouth [place] 00 daily. Medical Branch escitalopra 2021- No [id number] 10mg Take 1 Univers m oxalate 04-25- tablet by ity of (LEXAPRO) 00:00: 00:00 mouth [place] 10 mg 00 :00 daily. Medical tablet Branch proMETHazin 2021- No [id number] 25mg Take 2 Univers e 12.5 mg 04-25-25 tablets by ity of tablet 00:00: 00:00 mouth [place] 00 :00 every 6 Medical (six) Branch hours as needed for Other (vertigo). escitalopra 2021- No [id number] 10mg Take 1 Univers m oxalate 04-25 tablet by ity of (LEXAPRO) 00:00: 00:00 mouth [place] 10 mg 00 :00 daily. Medical tablet Branch proMETHazin 2021- No [id number] 25mg Take 2 Univers e 12.5 mg 04-2525 tablets by ity of tablet 00:00: 00:00 mouth [place] 00 :00 every 6 Medical (six) Branch hours as needed for Other (vertigo). tiZANidine Yes [id number] 4mg Take 1 Univers 4 mg tablet 8-12 9100 tablet by ity of 00:00: mouth 3 00 (three) Medical times Branch daily as needed (muscle spasm). tiZANidine Yes [id number] 4mg Take 1 Univers 4 mg tablet 8-12 9100 tablet by ity of 00:00: mouth 3 00 (three) Medical times Branch daily as needed (muscle spasm). tiZANidine Yes [id number] 4mg Take 1 Univers 4 mg tablet 8-12 9100 tablet by ity of 00:00: mouth 3 00 (three) Medical times Branch daily as needed (muscle spasm). tiZANidine Yes [id number] 4mg Take 1 Univers 4 mg tablet 8-12 9100 tablet by ity of 00:00: mouth 3 00 (three) Medical times Branch daily as needed (muscle spasm). albuterol Yes [id number] 2{puff} Inhale 2 Univers 90 7-07 Puffs ity of mcg/actuati 00:00: every 6 [place] as on inhaler 00 (six) Medical hours as Branch needed for Wheezing or Shortness of Breath. albuterol Yes [id number] 2{puff} Inhale 2 Univers 90 7-07 Puffs ity of mcg/actuati 00:00: every 6 [place] as on inhaler 00 (six) Medical hours as Branch needed for Wheezing or Shortness of Breath. albuterol Yes [id number] 2{puff} Inhale 2 Univers 90 7-07 Puffs ity of mcg/actuati 00:00: every 6 [place] as on inhaler 00 (six) Medical hours as Branch needed for Wheezing or Shortness of Breath. albuterol Yes [id number] 2{puff} Inhale 2 Univers 90 7-07 Puffs ity of mcg/actuati 00:00: every 6 [place] as on inhaler 00 (six) Medical hours as Branch needed for Wheezing or Shortness of Breath. hydrocortis Yes [id number] 1{appli Insert 1 Univers one-pramovi 5-03 cator} Applicator ity of ne rectal 00:00: into [place] foam 00 rectum 2 Medical (two) Branch times daily. hydrocortis Yes [id number] 1{appli Insert 1 Univers one-pramovi 5-03 cator} Applicator ity of ne rectal 00:00: into [place] foam 00 rectum 2 Medical (two) Branch times daily. hydrocortis Yes [id number] 1{appli Insert 1 Univers one-pramovi 5-03 cator} Applicator ity of ne rectal 00:00: into [place] foam 00 rectum 2 Medical (two) Branch times daily. hydrocortis Yes [id number] 1{appli Insert 1 Univers one-pramovi 5-03 cator} Applicator ity of ne rectal 00:00: into [place] foam 00 rectum 2 Medical (two) Branch times daily. insulin NPH 2021- No [id number] INJECT 20 Univers (NOVOLIN N 3-03 01-25 UNITS ity of NPH U-100 00:00: 00:00 SUBCUTANEO [place] INSULIN) 00 :00 USLY ONCE Medica l 100 unit/mL DAILY WITH Br anch injection BREAKFAST insulin NPH 2021- No [id number] INJECT 20 Univers (NOVOLIN N 3-03 01-25 UNITS ity of NPH U-100 00:00: 00:00 SUBCUTANEO [place] INSULIN) 00 :00 USLY ONCE Medica l 100 unit/mL DAILY WITH Br anch injection BREAKFAST insulin 2021- No [id number] 15U inject 15 Univers regular 3-03 01-21 Units ity of human 00:00: 00:00 under the [place] (NOVOLIN R 00 :00 skin 3 Medical REGULAR (three) Branch U-100 times INSULN) 100 daily unit/mL before injection meals. Insulin 2019- Yes Use as Univers Syringe-Nee 1-12 directed ity of dle U-100 1 00:00: [place] mL 31 gauge 00 Medical x 5/16 Syrg Branch Insulin 2019- Yes Use as Univers Syringe-Nee 1-12 directed ity of dle U-100 1 00:00: [place] mL 31 gauge 00 Medical x 5/16 Syrg Branch Insulin 2019- Yes Use as Univers Syringe-Nee 1-12 directed ity of dle U-100 1 00:00: [place] mL 31 gauge 00 Medical x 5/16 Syrg Branch Insulin 2019-08 Yes Use as Univers Syringe-Nee 1-12 directed ity of dle U-100 1 00:00: [place] mL 31 gauge 00 Medical x 5/16 Syrg Branch Immunizations Ordered Filled Immunization Date Status Comments [facility] e Immunization Name Name Influenza Virus 2021-07-01 Completed Universit y of Vaccine [place] .5 mL 00:00:00 [place] Medical IM 6+ MO Branch Influenza Virus 2021-07-01 Completed Universit y of Vaccine [place] .5 mL 00:00:00 [place] Medical IM 6+ MO Branch Influenza Virus 2021-07-01 Completed Universit y of Vaccine [place] .5 mL 00:00:00 [place] Medical IM 6+ MO Branch Influenza Virus 2021-07-01 Completed Universit y of Vaccine [place] .5 mL 00:00:00 [facility] 6+ MO Branch Pneumococcal 2020-07-13 Completed University o f Polysaccharide, 00:00:00 [place] Med ical PPSV23 (PNEUMOVAX) Branch Pneumococcal 2020-07-13 Completed University o f Polysaccharide, 00:00:00 [place] Med ical PPSV23 (PNEUMOVAX) Branch Pneumococcal 2020-07-13 Completed University o f Polysaccharide, 00:00:00 [place] Med ical PPSV23 (PNEUMOVAX) Branch Pneumococcal 2020-07-13 Completed University o f Polysaccharide, 00:00:00 [place] Med ical PPSV23 (PNEUMOVAX) Branch Influenza Virus 2020-05-13 Completed Universit y of Vaccine [place] .5 mL 00:00:00 [place] Medical IM 6+ MO Branch Influenza Virus 2020-05-13 Completed Universit y of Vaccine [place] .5 mL 00:00:00 [facility] IM 6+ MO Branch Influenza Virus 2020-05-13 Completed Universit y of Vaccine [place] .5 mL 00:00:00 [place] Medical IM 6+ MO Branch Influenza Virus 2020-05-13 Completed Universit y of Vaccine [place] .5 mL 00:00:00 [place] Medical IM 6+ MO Branch Influenza Virus 2017-05-29 Completed Universit y of Vaccine [place] IM 3+ 00:00:00 [facility] Influenza Virus 2017-05-29 Completed Universit y of Vaccine [place] IM 3+ 00:00:00 [facility] Influenza Virus 2017-05-29 Completed Universit y of Vaccine [place] IM 3+ 00:00:00 [facility] Influenza Virus 2017-05-29 Completed Universit y of Vaccine [place] IM 3+ 00:00:00 [facility] MMR 2017-04-29 Completed University of 00:00:00 [facility] MMR 2017-04-29 Completed University of 00:00:00 [facility] MMR 2017-04-29 Completed University of 00:00:00 [facility] MMR 2017-04-29 Completed University of 00:00:00 [facility] TDAP 2017-02-28 Completed University of 00:00:00 [facility] TDAP 2017-02-28 Completed University of 00:00:00 [facility] TDAP 2017-02-28 Completed University of 00:00:00 [facility] TDAP 2017-02-28 Completed University of 00:00:00 [facility] TDAP 2012-08-26 Completed University of 00:00:00 [facility] TDAP 2012-08-26 Completed University of 00:00:00 [facility] TDAP 2012-08-26 Completed University of 00:00:00 [facility] TDAP 2012-08-26 Completed University of 00:00:00 [facility] Vital Signs Vital Name Observation Time Observation Value Comments Source Systolic blood 2021-09-06 15:20:00 111 mm[Hg] Univer sity of pressure [facility] Diastolic blood 2021-09-06 15:20:00 70 mm[Hg] Unive rsity of pressure [facility] Heart rate 2021-09-06 15:20:00 79 /min [facility] Body temperature 2021-09-06 15:20:00 36.17 [place] [facility] ersity [facility] Respiratory rate 2021-09-06 15:20:00 18 /min [facility] [place] [facility] Body height 2021-09-06 15:20:00 162.6 cm [facility] Body weight 2021-09-06 15:20:00 92.443 kg [facility] BMI 2021-09-06 15:20:00 34.98 kg/m2 [facility] Oxygen saturation in 2021-09-06 15:20:00 98 /min University Arterial blood by [facility] Pulse oximetry Branch Procedures Procedure Date / Time Performed Performing Clinician Sour e COMP. METABOLIC PANEL 2021-09-06 16:10:00 Radha Pang [facility] ([id number]) [facility] POCT HEMOGLOBIN A1C 2021-09-06 00:00:00 Radha Pang [facility] Encounters Start End Encounter Admission Attending Care Care Encounter Source Date/Time Date/Time Type Type Clinicians Facility Department ID 2021-11-15 2021-11-15 Outpatient Annalee CORLEY [facility] [id number] [facility] 08:45:00 08:45:00 CAMILO [id number] [facility] 2021-10-17 2021-10-17 Outpatient Annalee MORLEY [facility] [id number] [facility] 09:30:00 09:30:00 CURTIS [id number] [facility] 2021-10-17 2021-10-17 Outpatient Annalee MORLEY [facility] [id number] [facility] 09:30:00 09:30:00 CURTIS [facility] 2021-10-05 2021-10-05 Outpatient BRYANNA DOUGHERTY [facility] [id number] [facility] 11:30:00 11:30:00 BRYANNA FERRARI [facility] 2021-10-05 2021-10-05 [facility] [id number] [facility] 00:00:00 00:00:00 Radha [place] [id number] [facility] of MEDICINE [id number] [facility] - [id number] [address] 2021-09-29 2021-09-29 Outpatient Annalee MORLEY [facility] [id number] [facility] 08:30:00 08:30:00 CURTIS [facility] 2021-09-16 2021-09-16 Outpatient R BIRD [facility] [id number] [facility] 14:30:00 14:30:[address] [facility] 2021-09-15 2021-09-15 Solis Morley [facility] [id number] Univers 00:00:00 00:00:00 Curtis JOSIAHPEC [id number] [facility]y [facility] [id number] [facility] [id number] [address] [facility] 2021-09-06 2021-09-06 Office Bird [facility] [id number] Univers 09:00:00 09:30:00 Visit Radha S[place] [id number] it y of MEDICINE [id number] [facility] - [phone] [address] 2021-08-03 2021-08-03 [facility] [id number] Univers 00:00:00 00:00:00 Radha SWE[place]Y [id number] it y of MEDICINE [id number] [facility] - [phone] [address] Results Test Description Test Time Test Comments Results Result Comments Source COMP. METABOLIC PANEL (76747) 2021-09-07 03:22:32 Test Item Value Reference Range Interpretation Comme nts NA (test code = 7971162986) 139 mmol/L 135-145 K (test code = 1356075412) 4.7 mmol/L 3.5-5.0 CL (test code = 8870822605) 105 mmol/L 98-108 CO2 TOTAL (test code = 6894333299) 24 mmol/L 23-31 AGAP (test code = 4645906501) 2-16 BUN (test code = 1432780369) 21 mg/dL 7-23 GLUCOSE (test code = 5190533765) 185 mg/dL 70-110 H CREATININE (test code = 0.55 mg/dL 0.50-1.04 0170766628) TOTAL BILI (test code = 0.7 mg/dL 0.1-1.5 2921169430) CALCIUM (test code = 1673150222) 9.2 mg/dL 8.6-10.6 T PROTEIN (test code = 3621539091) 7.5 g/dL 6.3-8.2 ALBUMIN (test code = 7415438098) 4.8 g/dL 3.5-5.0 ALK PHOS (test code = 4035293856) 52 U/L 34-122 ALTv (test code = 1742-6) 17 U/L 5-35 AST(SGOT) (test code = 4180955962) 17 U/L 13-40 eGFR (test code = 8589831852) mL/min/1.73m2 WILLIAMS (test code = WILLIAMS) Association of Glomerular Filtration Rate (GFR) and Staging of Kidney Disease* + +-------- + ------+| GFR (mL/min/1.73 m2) ?| With Kidney Damage ?| ?Without Kidney Damage+ +-- + +| ?>90 ?| ?Stage one ?| ? Normal ?+ +------- + -------+| ?60-89 ?| ?Stage two ?| ? Decreased GFR ? + +-------- + ------+| ?30-59 ?| ?Stage three ?| ? Stage three ? + +-------- + ------+| ?15-29 ?| ?Stage four ? | ? Stage four ?+ +------- + -------+| ?<15 (or dialysis) ? ?| ?Stage five ? | ? Stage five ?+ +------- + -------+ *Each stage assumes the associated GFR level has been in effect for at least three months. ?Stages 1 to 5, with or without kidney disease, indicate chronic kidney disease. Notes: Determination of stages one and two (with eGFR >59mL/min/1.73 m2) requires estimation of kidney damage for at least three months as defined by structural or functional abnormalities of the kidney, manifested by either:Pathological abnormalities or Markers of kidney damage (including abnormalities in the composition of the blood or urine or abnormalities in imaging tests). Lab Interpretation (test code = Abnormal 33257-8) [facility] HEMOGLOBIN A1C [id number] 15:58:00 Test Item Value Reference Range Interpretation Comments POCT HBA1C (test code = 4548-4) 7.3 % 4-6 A Lab Interpretation (test code = Abnormal 33679-1) [facility]"
--- NOTE | 2021-10-18 13:54 | RAD REPORT ---
EXAM DESCRIPTION: Umm Single View10/18/2021 1:37 pm CLINICAL HISTORY: cough COMPARISON: none FINDINGS: The lungs appear clear of acute infiltrate. The heart is normal size IMPRESSION: No acute abnormalities displayed
[2021-10-18 14:11] LABS: SARS-COV-2 RT PCR NEGATIVE (NEGATIVE)
--- NOTE | 2021-10-18 14:14 | ER ---
Nurse's Notes [facility] Name: Kelsey Harrell Age: 36 yrs Sex: Female : 1985 Arrival Date: 10/18/2021 Time: 12:16 Bed 17 Private MD: Diagnosis: Influenza due to identified novel influenza A virus Presentation: 10/18 12:34 Chief complaint: Patient states: Dizzy, nausea, ARECHIGA, B ear pain, painful cough, sore ll1 throat, SOB for 2 days. Subjective fever. has covid. Coronavirus screen: Vaccine status: Patient reports being unvaccinated. Client denies travel out of the [place] in the last 14 days. chills, cough unrelated to allergies, difficulty breathing, fatigue, fever, headache, shortness of breath, sore throat, Client presents with at least one sign or symptom that may indicate coronavirus-19. Standard/surgical mask placed on the client. Ebola Screen: Patient denies travel to an Ebola-affected area in the 21 days before illness onset. Initial Sepsis Screen: Does the patient meet any 2 criteria? HR > 90 bpm. Does the patient have a suspected source of infection? Yes: Productive cough/pneumonia. Risk Assessment: Do you want to hurt yourself or someone else? Patient reports no desire to harm self or others. Onset of symptoms was October 17, 2021. 12:34 Method Of Arrival: Ambulatory ll1 12:34 Acuity: LENA 3 ll1 Triage Assessment: 12:37 General: Appears in no apparent distress. Behavior is calm, cooperative, appropriate ll1 for age. Pain: Complains of pain in head Quality of pain is described as aching. Neuro: Reports dizziness, headache. Cardiovascular: Reports shortness of breath. Respiratory: Reports shortness of breath cough that is. Historical: - Allergies: 12:33 Latex, Natural Rubber; ll1 - PMHx: 12:33 Anxiety; chronic back pain; chronic bronchitis; diabetes mellitus; Neuropathy; ll1 - PSHx: 12:33 "back injections"; ll1 - Immunization history:: Client reports having NOT received the Covid vaccine. - Social history:: Smoking status: Patient reports the use of cigarette tobacco products, denies chronic smoking, but will smoke occasionally, Reported history of juuling and/or vaping. Screenin:45 Abuse screen: Denies threats or abuse. Denies injuries from another. Nutritional cb5 screening: No deficits noted. Tuberculosis screening: No symptoms or risk factors identified. 12:45 Fall Risk None identified. cb5 Assessment: 12:25 General: Appears in no apparent distress. distressed, Behavior is calm, cooperative, cb5 appropriate for age. Pain: Complains of pain in c/o of headache, earache. Neuro: No deficits noted. Level of Consciousness is awake, alert, obeys commands, Oriented to person, place, time, situation, Appropriate for age. Cardiovascular: No deficits noted. Respiratory: No deficits noted. GI: No deficits noted. : No deficits noted. EENT: Reports earache. 12:45 Pain:. cb5 13:50 Reassessment: Patient and/or family updated on plan of care and expected duration. Pain cb5 level reassessed. Patient is alert, oriented x 3, equal unlabored respirations, skin warm/dry/pink. Vital Signs: 12:34 BP 144 / 118; Pulse 94; Resp 17; Temp 98.6; Pulse Ox 97% on R/A; Weight 89.36 kg; ll1 Height 5 ft. 4 in. (162.56 cm); Pain 9/10; 14:00 BP 138 / 77; Pulse 88; Resp 16; Temp 98.6; Pain 01/10; cb5 12:34 Body Mass Index 33.81 (89.36 kg, 162.56 cm) ll1 ED Course: 12:16 Patient arrived in ED. kz 12:28 Dez Nunn MD is Attending Physician. rn 12:33 Arm band placed on Patient placed in an exam room, on a stretcher. ll1 12:36 Den[facility]NP-C [facility] kb 12:36 Dez Nunn MD is Attending Physician. kb 12:36 Meredith Crook, BUCKY is Primary Nurse. cb5 12:37 Triage completed. ll1 12:45 Patient has correct armband on for positive identification. Call light in reach. Side cb5 rails up X 1. Side rails up X2. 12:45 No provider procedures requiring assistance completed. cb5 13:05 COVID-19/FLU A+B (Document "Date of Onset" if Symptomatic) Sent. cb5 13:05 Strep Sent. cb5 13:37 Chest Single View XRAY In Process Unspecified. EDMS 14:35 Patient did not have IV access during this emergency room visit. cb5 Administered Medications: No medications were administered Outcome: 14:14 Discharge ordered by . kb 14:35 Discharged to home ambulatory. cb5 14:35 Condition: stable 14:35 Discharge instructions given to patient. 14:35 Patient left the ED. cb5 Signatures: Dispatcher [employer] EDMS Denita Bee, TECHNICAL SOURCING RECRUITER-C TECHNICAL SOURCING RECRUITER-Dez Dumont MD MD rn Lewis, Lynsay RN RN ll1 Meredith Crook, RN RN cb5 Leydi Turner
--- NOTE | 2021-10-18 14:14 | EDPHYS ---
Physician Documentation [facility] Name: Kelsey Harrell Age: 36 yrs Sex: Female : 1985 Arrival Date: 10/18/2021 Time: 12:16 Bed 17 Private MD: ED Physician Dez Nunn HPI: 10/18 14:13 This 36 yrs old Female presents to ER via Ambulatory with complaints of Chest kb Pain, Ear Pain, Breathing Difficulty. 14:13 The patient or guardian reports cough, that is intermittent, described as mild, flu kb symptoms, arthralgias, myalgias, no appetite. Onset: The symptoms/episode began/occurred 2 day(s) ago. Severity of symptoms: At their worst the symptoms were mild, moderate, in the emergency department the symptoms are unchanged. Modifying factors: The symptoms are alleviated by nothing, the symptoms are aggravated by nothing. Associated signs and symptoms: Pertinent positives: earache, nausea, sore throat. The patient has not experienced similar symptoms in the past. The patient has not recently seen a physician. Historical: - Allergies: 12:33 Latex, Natural Rubber; ll1 - PMHx: 12:33 Anxiety; chronic back pain; chronic bronchitis; diabetes mellitus; Neuropathy; ll1 - PSHx: 12:33 "back injections"; ll1 - Immunization history:: Client reports having NOT received the Covid vaccine. - Social history:: Smoking status: Patient reports the use of cigarette tobacco products, denies chronic smoking, but will smoke occasionally, Reported history of juuling and/or vaping. ROS: 14:11 Abdomen/GI: Negative for abdominal pain, nausea, vomiting, diarrhea, and constipation. kb 14:11 Constitutional: Positive for body aches, fatigue, malaise. 14:11 ENT: Positive for sore throat. 14:11 Respiratory: Positive for cough, Negative for dyspnea on exertion, hemoptysis, orthopnea, pleurisy, shortness of breath, sputum production, wheezing. 14:11 All other systems are negative. Exam: 14:11 Constitutional: This is a well developed, well nourished patient who is awake, alert, kb and in no acute distress. Head/Face: Normocephalic, atraumatic. ENT: Moist Mucous membranes Cardiovascular: Regular rate and rhythm with a normal S1 and S2. No gallops, murmurs, or rubs. No pulse deficits. Respiratory: Respirations even and unlabored. No increased work of breathing. Talking in full sentences Abdomen/GI: Soft, non-tender. No distention Skin: Warm, dry with normal turgor. Normal color. MS/ Extremity: Pulses equal, no cyanosis. Neurovascular intact. Full, normal range of motion. Neuro: Awake and alert, GCS 15, oriented to person, place, time, and situation. Moves all extremities. Normal gait. Psych: Awake, alert, with orientation to person, place and time. Behavior, mood, and affect are within normal limits. Vital Signs: 12:34 BP 144 / 118; Pulse 94; Resp 17; Temp 98.6; Pulse Ox 97% on R/A; Weight 89.36 kg; ll1 Height 5 ft. 4 in. (162.56 cm); Pain 9/10; 14:00 BP 138 / 77; Pulse 88; Resp 16; Temp 98.6; Pain 01/10; cb5 12:34 Body Mass Index 33.81 (89.36 kg, 162.56 cm) ll1 MDM: 12:28 Patient medically screened. rn 14:12 Data reviewed: vital signs, nurses notes. Data interpreted: Pulse oximetry: on room air kb is 97 %. Interpretation: normal. Counseling: I had a detailed discussion with the patient and/or guardian regarding: the historical points, exam findings, and any diagnostic results supporting the discharge/admit diagnosis, lab results, radiology results, the need for outpatient follow up, a family practitioner, to return to the emergency department if symptoms worsen or persist or if there are any questions or concerns that arise at home. 10/18 12:41 Order name: Strep; Complete Time: 13:40 kb 10/18 12:41 Order name: COVID-19/FLU A+B (Document "Date of Onset" if Symptomatic); Complete Time: kb 14:14 10/18 12:41 Order name: Chest Single View XRAY; Complete Time: 13:58 kb 10/18 13:26 Order name: Throat Culture EDMS 10/18 13:40 Order name: Vital Signs; Complete Time: 14:33 kb Administered Medications: No medications were administered Disposition: 17:06 Co-signature as Attending Physician, Dez Nunn MD. rn Disposition Summary: 10/18/21 14:14 Discharge Ordered Location: Home kb Condition: Stable kb Diagnosis - Influenza due to identified novel influenza A virus kb Followup: kb - With: Private Physician - When: 2 - 3 days - Reason: Recheck today's complaints, Continuance of care, Re-evaluation by your physician Followup: kb - With: Emergency Department - When: As needed - Reason: Worsening of condition Discharge Instructions: - Discharge Summary Sheet kb - Influenza, Adult, [id number] kb Forms: - Medication Reconciliation Form kb - Thank You Letter kb - Antibiotic Education kb - Prescription Opioid Use kb Signatures: Dispatcher [employer] EDMS Denita Bee, SORTING GRAPPLE OPERATOR-C SORTING GRAPPLE OPERATOR-Ckb Dez Nunn MD MD rn Zenobia Yee RN RN ll1
[2021-10-18 14:50] VITALS: TEMP 98.6; O2SAT 97
[2021-10-18 14:51] VITALS: BP 138/77
== END 2021-10-18 14:35 | disposition home or self-care (01) ==
LOC: ER 12:09
DX: J10.1 Influenza due to other identified influenza virus with other respiratory manifestations (principal); Z20.822 Contact with and (suspected) exposure to COVID-19; F17.210 Nicotine dependence, cigarettes, uncomplicated; Z91.040 Latex allergy status; Z91.048 Other nonmedicinal substance allergy status
CPT/HCPCS: 87070; 87081; 0240U; 71045; 99283

== ENCOUNTER 2021-11-26 07:19 | Emergency (ER) | payer OTHER ==
--- OUTSIDE RECORDS SUMMARY | 2021-11-26 07:25 | XMS REPORT | Continuity of Care Document ---
:1985 Author Organization [facility] t Address [address] [place] [address] Care Team Providers Name Role Phone BIRD Primary Care Physician Unavailable MARILU Attending Clinician Unavailable Marilu CHONG Attending Clinician Bird LEI Attending Clinician DRISS CORLEY Attending Clinician Unavailable Only, Test Attending Clinician Unavailable MARILU Admitting Clinician Unavailable Marilu CHONG Admitting Clinician Payers Payer Name Policy Type Policy [...] Added automatic ally from request for surgery [id number] Sacroiliit Sacroiliit Disease Active Overview : Univers is is 2-11 Formattin ity of 00:00: g of this 00 note Medical might be Branch different from the original. Added automatic ally from request for surgery [id number] Loose Loose Disease Active 2019-08 Overview: Univer s stools stools 0-02 Formattin ity of 00:00: g of this 00 note Medical might be Branch different from the original. Added automatic ally from request for surgery [id number] Blood in Blood in Disease Active 2019-08 Overview: Un joby stool stool 0-02 Formattin ity of 00:00: g of this [place] 00 note Medical might be Branch different from the original. Added automatic ally from request for surgery [id number] Pre-eclamp Pre-eclamp Disease Active U nivers teodora [...] Univers Formattin ity of g of this [place] note Medical might be Branch different from the original. COPD v. asthma Anxiety Anxiety Disease Active Univers ity of [facility] Fatty Fatty Disease Active Univers liver liver ity of [facility] Allergies, Adverse Reactions, Alerts Allergy Allergy Status Severity Reaction(s) Onset Inactive Treating Comm ents Source Name Type Date Date Clinician Latex Propensi Active Rash Univers ty to 4-26 ity of adverse 00:00: [place] reaction 00 Medical s Branch LATEX DRUG Active Rash Univers INGREDI - ity of 00:00: [place] 00 Medical Branch Social History Social Habit Start Date Stop Date Quantity Comments Source History of tobacco 2016-12-31 Cigarette Smoker University of use 00:00:00 [facility] Exposure to Not sure University SARS-CoV-2 (event) [facility] Alcohol intake 2021-11-22 2021-11-22 Current University of 00:00:00 00:00:00 non-drinker of [facility] alcohol Branch (finding) Cigarettes smoked 2020-11-26 2020-11-26 Univers ity of current (pack per 00:00:00 00:00:00 ) - Reported Branch Cigarette 2020-11-26 2020-11-26 University of pack-years 00:00:00 00:00:00 [facility] Tobacco use and 2020-11-26 2020-11-26 Never used Universit y of exposure 00:00:00 00:00:00 [facility] Tobacco Comment 2020-10-13 2020-10-13 vapes Universit y of 00:00:00 00:00:00 [facility] Sex [birth year] Universit y of 00:00:00 00:00:00 [facility] Smoking Status Start Date Stop Date Source Former smoker 2020-11-26 00:00:00 2020-11-26 00:00:00 Universi ty of [facility] Medications Ordered Filled Start Stop Current Ordering Indication Dosage Frequency Signature Comments Components Source Medication Medication Date Date Medication? Clinician (SIG) Name Name tiZANidine Yes 4mg Take 1 Unive rs 4 mg tablet 4-12 tablet by ity of 00:00: mouth 3 [place] 00 (three) Medical times Branch daily as needed (muscle spasm). oxyCODONE 5 Yes [id number] 5mg Take 1 Univ ers mg 4-12 tablet by ity of immediate 00:00: mouth [place] release 00 every 6 Medical tablet (six) Branch hours as needed for Pain (scale 7-10). Indication s: acute pain oxyCODONE 5 2021- Yes 4647 5mg Take 1 Uni vers mg 4-10 04-18 tablet by ity of immediate 00:00: 04:59 mouth [place] release 00 :00 every 6 Medical tablet (six) Branch hours as needed for Pain (scale 7-10) for up to 7 days. Indication s: acute pain oxyCODONE 5 2021- Yes 4647 5mg Take 1 Uni vers mg 4-10 04-18 tablet by ity of immediate 00:00: 04:59 mouth [place] release 00 :00 every 6 Medical tablet (six) Branch hours as needed for Pain (scale 7-10) for up to 7 days. Indication s: acute pain oxyCODONE 5 2021- No 4647 5mg Take 1 Uni vers mg 4-10 -12 tablet by ity of immediate 00:00: 00:00 mouth [place] release 00 :00 every 6 Medical tablet (six) Branch hours as needed for Pain (scale 7-10) for up to 7 days. Indication s: acute pain HYDROcodone 2021- No 1{tbl} 1 tablet, Univers -acetaminop 4-04 04-04 Oral, ity of hen (NORCO 18:30: 19:03 ONCE, 1 [place] 5) 5-325 mg 00 :00 dose, On Medi nirmal tablet 1 Sun11/14/21 Branc h tablet at 1330, Routine, PACU HYDROcodone 2021- No 1{tbl} 1 tablet, Univers -acetaminop 4-04 04-04 Oral, ity of hen (NORCO 18:30: 19:03 ONCE, 1 [place] 5) 5-325 mg 00 :00 dose, On Medi nirmal tablet 1 Sun11/14/21 Branc h tablet at 1330, Routine, PACU HYDROcodone 2021-0 Yes 1{tbl} 1 tablet, Univers -acetaminop 4-04 Oral, PRN, it y of hen (NORCO 18:15: 1 dose, [place] 5) 5-325 mg 13 Starting Medi nirmal tablet 1 on Sun Branch tablet 11/14/21 at 1315, Until Discontinu ed, Routine, Pain (scale 4-6), DSU Recovery acetaminoph Yes 650mg 650 mg, Un joby en 4-04 Oral, PRN, ity of (TYLENOL) 18:15: 1 dose, [place] tablet 650 13 Starting Medic al mg on Mon Branch 11/14/21 at 1315, Until Discontinu ed, Routine, Pain (scale 1-3), DSU Recovery ondansetron Yes 4mg 4 mg, Slow Univers (ZOFRAN 4-04 IV Push, ity of (PF)) 18:15: PRN, 1 [place] injection 4 13 dose, Medical mg Starting Branch on 11/14/21 at 1315, Until Discontinu ed, Routine, Nausea and Vomiting (N/V), DSU Recovery morpHINE No 2mg 2 mg, Univers injection 2 11-14 Intravenou i ty of mg 18:15: 19:35 s, PRN, 1 [place] 13 :00 dose, Medical Starting Branch on Sun11/14/21 at 1315, Until Discontinu ed, Routine, Pain (scale 7-10), DSU Recovery HYDROcodone 2021- No 1{tbl} 1 tablet, Univers -acetaminop 11-14 Oral, PRN, i ty of hen (NORCO 18:15: 22:24 1 dose, [place] 5) 5-325 mg 13 :58 Starting Medi nirmal tablet 1 on Sun Branch tablet 11/14/21 at 1315, Until Sun11/14/21 at 1724, Routine, Pain (scale 4-6), DSU Recovery acetaminoph No 650mg 650 mg, U nivers en 11-14 Oral, PRN, ity of (TYLENOL) 18:15: 22:24 1 dose, [place] tablet 650 13 :58 Starting Medic al mg on Sun Branch 11/14/21 at 1315, Until Sun11/14/21 at 1724, Routine, Pain (scale 1-3), DSU Recovery ondansetron No 4mg 4 mg, Slow Univers (ZOFRAN 11-14 IV Push, ity of (PF)) 18:15: 22:24 PRN, 1 [place] injection 4 13 :58 dose, Medical mg Starting Branch on Sun11/14/21 at 1315, Until Sun11/14/21 at 1724, Routine, Nausea and Vomiting (N/V), DSU Recovery morpHINE 2021- No 2mg 2 mg, Univers injection 2 11-14 Intravenou i ty of mg 18:15: 19:35 s, PRN, 1 [place] 13 :00 dose, Medical Starting Branch on Sun11/14/21 at 1315, Until Discontinu ed, Routine, Pain (scale 7-10), DSU Recovery HYDROmorpho Yes .2mg 0.2 mg, Uni vers ne 11-14 Slow IV ity of (DILAUDID) 18:15: Push, [place] injection 05 Q5MIN PRN, Medi nirmal 0.2 mg 10 doses, Branch Starting on Sun11/14/21 at 1315, Until Discontinu ed, Routine, Pain (scale 7-10), PACU
Us e approved by (Faculty): PACU USE -ANESTHESI A SERVICE-HY DROMORPHON E INJECTIONS ondansetron Yes 4mg 4 mg, Slow Univers (ZOFRAN 4-04 IV Push, ity of (PF)) 18:15: PRN, 1 [place] injection 4 05 dose, Medical mg Starting Branch on Sun11/14/21 at 1315, Until Discontinu ed, Routine, Nausea and Vomiting (N/V), PACU FENTanyl PF 2021- No 25ug 25 mcg, Un joby (SUBLIMAZE 11-14 Slow IV ity o f (PF)) 18:15: 19:25 Push, [place] injection 05 :00 Q5MIN PRN, Medi nirmal 25 mcg 4 doses, Branch Starting on Sun11/14/21 at 1315, Until Discontinu ed, Routine, Pain (scale 4-6), PACU HYDROmorpho 2021- No .2mg 0.2 mg, Un joby ne 11-14 Slow IV ity of (DILAUDID) 18:15: 22:24 Push, [place] injection 05 :58 Q5MIN PRN, Medi nirmal 0.2 mg 10 doses, Branch Starting on Sun11/14/21 at 1315, Until Sun11/14/21 at 1724, Routine, Pain (scale 7-10), PACU
Us e approved by (Faculty): PACU USE -ANESTHESI A SERVICE-HY DROMORPHON E INJECTIONS FENTanyl PF 2021- No 25ug 25 mcg, Un joby (SUBLIMAZE 11-14 Slow IV ity o f (PF)) 18:15: 19:25 Push, [place] injection 05 :00 Q5MIN PRN, Medi nirmal 25 mcg 4 doses, Branch Starting on Sun11/14/21 at 1315, Until Discontinu ed, Routine, Pain (scale 4-6), PACU ondansetron 2021- No 4mg 4 mg, Slow Univers (ZOFRAN 11-14 IV Push, ity of (PF)) 18:15: 22:24 PRN, 1 [place] injection 4 05 :58 dose, Medical mg Starting Branch on Sun11/14/21 at 1315, Until Sun11/14/21 at 1724, Routine, Nausea and Vomiting (N/V), PACU lidocaine Yes PRN, Univers (XYLOCAINE) 11-14 Starting ity of 2 % jelly 18:14: on [facility] URO-JET 00 11/14/21 at [facility] 1314, Branch Until Discontinu ed, Routine, Intra-op lidocaine 2021- No PRN, Univers (XYLOCAINE) 11-14 Starting ity of 2 % jelly 18:14: 22:24 on [facility] URO-JET 00 :58 11/14/21 at [facility] 1314, Branch Until Sun11/14/21 at 1724, Routine, Intra-op bupivacaine Yes PRN, Univer s liposome 11-14 Starting ity of (PF) 17:39: on [facility] (EXPAREL 00 11/14/21 at Medica l (PF)) 1.3 % 1239, Branch (13.3 Intra-op mg/mL) 266 mg, bupivacaine -epinephrin e-pf (SENSORCAIN E W/EPINEPHRI NE) 0.25 %-1:200,000 30 mL bupivacaine 2021- No PRN, Unive rs liposome 11-14 Starting ity of (PF) 17:39: 22:24 on [facility] (EXPAREL 00 :58 11/14/21 at Medica l (PF)) 1.3 % 1239, Branch (13.3 Intra-op mg/mL) 266 mg, bupivacaine -epinephrin e-pf (SENSORCAIN E W/EPINEPHRI NE) 0.25 %-1:200,000 30 mL celecoxib 2021- No 200mg 200 mg, Uni vers (CELEBREX) 11-14 Oral, O.R. it y of capsule 200 15:47: 16:03 [place]ING [place] mg 47 :00 ONCE, 1 Medical dose, Branch Starting on Sun11/14/21 at 1047, Until Sun11/14/21 at 1103, Routine, Pain, DSU Pre-op acetaminoph 2021- No 650mg 650 mg, U nivers en 11-14 Oral, O.R. ity of (TYLENOL) 15:47: 16:03 [place] tablet 650 47 :00 ONCE, 1 Medica l mg dose, Branch Starting on Sun11/14/21 at 1047, Until Sun11/14/21 at 1103, Routine, Surgery / Procedure, DSU Pre-op celecoxib 2021- No 200mg 200 mg, Uni vers (CELEBREX) 11-14 Oral, O.R. it y of capsule 200 15:47: 16:03 [place]ING [place] mg 47 :00 ONCE, 1 Medical dose, Branch Starting on Sun11/14/21 at 1047, Until Sun11/14/21 at 1103, Routine, Pain, DSU Pre-op acetaminoph 2021- No 650mg 650 mg, U nivers en 11-14 Oral, O.R. ity of (TYLENOL) 15:47: 16:03 [place]ING [place] tablet 650 47 :00 ONCE, 1 Medica l mg dose, Branch Starting on Sun11/14/21 at 1047, Until Sun11/14/21 at 1103, Routine, Surgery / Procedure, DSU Pre-op gabapentin 2021- Yes [id number] 400mg Take 1 Univers 400 mg 11-14 9100 capsule by ity of capsule 00:00: 04:59 mouth 3 [place] 00 :00 (three) Medical times Branch daily for 14 days. polyethylen 2021- Yes [id number] 17g Take 17 g Univers e glycol 11-14 by mouth 2 ity of 3350 17 00:00: 04:59 (two) [place] gram/dose 00 :00 times Medical powder daily for Branch 14 days. gabapentin 2021- Yes [id number] 400mg Take 1 Univers 400 mg 11-14 9100 capsule by ity of capsule 00:00: 04:59 mouth 3 [place] 00 :00 (three) Medical times Branch daily for 14 days. polyethylen 2021- Yes [id number] 17g Take 17 g Univers e glycol 4-19 by mouth 2 ity of 3350 17 00:00: 04:59 (two) [place] gram/dose 00 :00 times Medical powder daily for Branch 14 days. gabapentin 2021- Yes [id number] 400mg Take 1 Univers 400 mg 11-14- 9100 capsule by ity of capsule 00:00: 04:59 mouth 3 [place] 00 :00 (three) Medical times Branch daily for 14 days. polyethylen 2021- Yes [id number] 17g Take 17 g Univers e glycol 11-14 by mouth 2 ity of 3350 17 00:00: 04:59 (two) [place] gram/dose 00 :00 times Medical powder daily for Branch 14 days. gabapentin 2021- Yes [id number] 400mg Take 1 Univers 400 mg 11-14 9100 capsule by ity of capsule 00:00: 04:59 mouth 3 [place] 00 :00 (three) Medical times Branch daily for 14 days. polyethylen 2021- Yes [id number] 17g Take 17 g Univers e glycol 11-14 by mouth 2 ity of 3350 17 00:00: 04:59 (two) [place] gram/dose 00 :00 times Medical powder daily for Branch 14 days. gabapentin 2021- Yes [id number] 400mg Take 1 Univers 400 mg 11-14 9100 capsule by ity of capsule 00:00: 04:59 mouth 3 [place] 00 :00 (three) Medical times Branch daily for 14 days. polyethylen 2021- Yes [id number] 17g Take 17 g Univers e glycol 11-14 by mouth 2 ity of 3350 17 00:00: 04:59 (two) [place] gram/dose 00 :00 times Medical powder daily for Branch 14 days. gabapentin 2021- Yes [id number] 400mg Take 1 Univers 400 mg 11-14 9100 capsule by ity of capsule 00:00: 04:59 mouth 3 [place] 00 :00 (three) Medical times Branch daily for 14 days. polyethylen 2021- Yes [id number] 17g Take 17 g Univers e glycol 11-14-19 by mouth 2 ity of 3350 17 00:00: 04:59 (two) [place] gram/dose 00 :00 times Medical powder daily for Branch 14 days. gabapentin 2021- Yes [id number] 400mg Take 1 Univers 400 mg 11-14 9100 capsule by ity of capsule 00:00: 04:59 mouth 3 [place] 00 :00 (three) Medical times Branch daily for 14 days. polyethylen 2021- Yes [id number] 17g Take 17 g Univers e glycol 11-14 by mouth 2 ity of 3350 17 00:00: 04:59 (two) [place] gram/dose 00 :00 times Medical powder daily for Branch 14 days. acetaminoph 2021- Yes [id number] 1000mg Take 2 Univers en (TYLENOL 4-04 04-12 tablets by i ty of EXTRA 00:00: 04:59 mouth [place] STRENGTH) 00 :00 every 8 Medical 500 mg (eight) Branch tablet hours for 7 days. oxyCODONE 5 2021- Yes [id number] 5mg Take 1 Uni vers mg 4- 04-12 tablet by ity of immediate 00:00: 04:59 mouth [place] release 00 :00 every 6 Medical tablet (six) Branch hours as needed for Pain (scale 7-10) for up to 7 days. Indication s: acute pain acetaminoph 2021- Yes [id number] 1000mg Take 2 Univers en (TYLENOL 4- 04-12 tablets by i ty of EXTRA 00:00: 04:59 mouth [place] STRENGTH) 00 :00 every 8 Medical 500 mg (eight) Branch tablet hours for 7 days. oxyCODONE 5 2021- Yes [id number] 5mg Take 1 Uni vers mg 4-04 04-12 tablet by ity of immediate 00:00: 04:59 mouth [place] release 00 :00 every 6 Medical tablet (six) Branch hours as needed for Pain (scale 7-10) for up to 7 days. Indication s: acute pain acetaminoph 2021- Yes [id number] 1000mg Take 2 Univers en (TYLENOL 4-04 04-12 tablets by i ty of EXTRA 00:00: 04:59 mouth [place] STRENGTH) 00 :00 every 8 Medical 500 mg (eight) Branch tablet hours for 7 days. oxyCODONE 5 2021- Yes [id number] 5mg Take 1 Uni vers mg 4-11 14-12 tablet by ity of immediate 00:00: 04:59 mouth [place] release 00 :00 every 6 Medical tablet (six) Branch hours as needed for Pain (scale 7-10) for up to 7 days. Indication s: acute pain acetaminoph 2021- Yes [id number] 1000mg Take 2 Univers en (TYLENOL 4-11 14-12 tablets by i ty of EXTRA 00:00: 04:59 mouth [place] STRENGTH) 00 :00 every 8 Medical 500 mg (eight) Branch tablet hours for 7 days. oxyCODONE 5 2021- Yes [id number] 5mg Take 1 Uni vers mg -11 14-12 tablet by ity of immediate 00:00: 04:59 mouth [place] release 00 :00 every 6 Medical tablet (six) Branch hours as needed for Pain (scale 7-10) for up to 7 days. Indication s: acute pain PROMETHAZIN Yes [id number] TAKE 2 Univers E 12.5 mg 3-14 TABLETS BY ity of tablet 00:00: MOUTH [place] 00 EVERY 6 Medical HOURS Branch NEEDED FOR VERTIGO PROMETHAZIN 2021-0 Yes [id number] TAKE 2 Univers E 12.5 mg 3-14 TABLETS BY ity of tablet 00:00: MOUTH [place] 00 EVERY 6 Medical HOURS Branch NEEDED FOR VERTIGO PROMETHAZIN 2021-0 Yes [id number] TAKE 2 Univers E 12.5 mg 3-14 TABLETS BY ity of tablet 00:00: MOUTH [place] 00 EVERY 6 Medical HOURS Branch NEEDED FOR VERTIGO PROMETHAZIN 2021-0 Yes [id number] TAKE 2 Univers E 12.5 mg 3-14 TABLETS BY ity of tablet 00:00: MOUTH [place] 00 EVERY 6 Medical HOURS Branch NEEDED FOR VERTIGO PROMETHAZIN 2021-0 Yes [id number] TAKE 2 Univers E 12.5 mg 3-14 TABLETS BY ity of tablet 00:00: MOUTH [place] 00 EVERY 6 Medical HOURS Branch NEEDED FOR VERTIGO PROMETHAZIN 2-0 Yes [id number] TAKE 2 Univers E 12.5 mg 3-14 TABLETS BY ity of tablet 00:00: MOUTH [place] 00 EVERY 6 Medical HOURS Branch NEEDED FOR VERTIGO PROMETHAZIN 2-0 Yes [id number] TAKE 2 Univers E 12.5 mg 3-14 TABLETS BY ity of tablet 00:00: MOUTH [place] 00 EVERY 6 Medical HOURS Branch NEEDED FOR VERTIGO PROMETHAZIN 2-0 Yes [id number] TAKE 2 Univers E 12.5 mg 3-14 TABLETS BY ity of tablet 00:00: MOUTH [place] 00 EVERY 6 Medical HOURS Branch NEEDED FOR VERTIGO PROMETHAZIN 2-0 Yes [id number] TAKE 2 Univers E 12.5 mg 3-14 TABLETS BY ity of tablet 00:00: MOUTH [place] 00 EVERY 6 Medical HOURS Branch NEEDED FOR VERTIGO GABAPENTIN 2-0 Yes [id number] TAKE 1 Univers 400 mg 2-24 9100 CAPSULE BY ity of capsule 00:00: MOUTH [place] 00 THREE Medical TIMES Branch DAILY GABAPENTIN 2-0 Yes [id number] TAKE 1 Univers 400 mg 2-24 9100 CAPSULE BY ity of capsule 00:00: MOUTH [place] 00 THREE Medical TIMES Branch DAILY GABAPENTIN 2022-0 2022- No [id number] TAKE 1 Univers 400 mg 2-24 04-04 9100 CAPSULE BY ity of capsule 00:00: 00:00 MOUTH [place] 00 :00 THREE Medical TIMES Branch DAILY GABAPENTIN 2022-0 2022- No [id number] TAKE 1 Univers 400 mg 2-24 04-04 9100 CAPSULE BY ity of capsule 00:00: 00:00 MOUTH [place] 00 :00 THREE Medical TIMES Branch DAILY ONDANSETRON 2-0 Yes [id number] DISSOLVE 1 Univers 4 mg 2-15 TABLET IN ity of disintegrat 00:00: MOUTH [place] ing tablet 00 EVERY 8 Medica l HOURS Branch NEEDED FOR NAUSEA AND VOMITING FOR UP TO 4 DAYS ONDANSETRON 2021-0 Yes [id number] DISSOLVE 1 Univers 4 mg 2-15 TABLET IN ity of disintegrat 00:00: MOUTH [place] ing tablet 00 EVERY 8 Medica l HOURS Branch NEEDED FOR NAUSEA AND VOMITING FOR UP TO 4 DAYS ONDANSETRON 2-0 Yes [id number] DISSOLVE 1 Univers 4 mg 2-15 TABLET IN ity of disintegrat 00:00: MOUTH [place] ing tablet 00 EVERY 8 Medica l HOURS Branch NEEDED FOR NAUSEA AND VOMITING FOR UP TO 4 DAYS ONDANSETRON 2-0 Yes [id number] DISSOLVE 1 Univers 4 mg 2-15 TABLET IN ity of disintegrat 00:00: MOUTH [place] ing tablet 00 EVERY 8 Medica l HOURS Branch NEEDED FOR NAUSEA AND VOMITING FOR UP TO 4 DAYS ONDANSETRON Yes [id number] DISSOLVE 1 Univers 4 mg 2-15 TABLET IN ity of disintegrat 00:00: MOUTH [place] ing tablet 00 EVERY 8 Medica l HOURS Branch NEEDED FOR NAUSEA AND VOMITING FOR UP TO 4 DAYS ONDANSETRON Yes [id number] DISSOLVE 1 Univers 4 mg 2-15 TABLET IN ity of disintegrat 00:00: MOUTH [place] ing tablet 00 EVERY 8 Medica l HOURS Branch NEEDED FOR NAUSEA AND VOMITING FOR UP TO 4 DAYS ONDANSETRON Yes [id number] DISSOLVE 1 Univers 4 mg 2-15 TABLET IN ity of disintegrat 00:00: MOUTH [place] ing tablet 00 EVERY 8 Medica l HOURS Branch NEEDED FOR NAUSEA AND VOMITING FOR UP TO 4 DAYS ONDANSETRON Yes [id number] DISSOLVE 1 Univers 4 mg 2-15 TABLET IN ity of disintegrat 00:00: MOUTH [place] ing tablet 00 EVERY 8 Medica l HOURS Branch NEEDED FOR NAUSEA AND VOMITING FOR UP TO 4 DAYS ONDANSETRON Yes [id number] DISSOLVE 1 Univers 4 mg 2-15 TABLET IN ity of disintegrat 00:00: MOUTH [place] ing tablet 00 EVERY 8 Medica l HOURS Branch NEEDED FOR NAUSEA AND VOMITING FOR UP TO 4 DAYS MELOXICAM Yes [id number] Take 1 Un joby 15 mg 2-04 tablet by ity of tablet 00:00: mouth daily Medical Branch MELOXICAM Yes [id number] Take 1 Un joby 15 mg 2-04 tablet by ity of tablet 00:00: mouth daily Medical Branch MELOXICAM Yes [id number] Take 1 Un joby 15 mg 2-04 tablet by ity of tablet 00:00: mouth daily Medical Branch MELOXICAM 2021-0 Yes [id number] Take 1 Un joby 15 mg 2-04 tablet by ity of tablet 00:00: mouth daily Medical Branch MELOXICAM Yes [id number] Take 1 Un joby 15 mg 2-04 tablet by ity of tablet 00:00: mouth daily Medical Branch MELOXICAM Yes [id number] Take 1 Un joby 15 mg 2-04 tablet by ity of tablet 00:00: mouth once [place] 00 daily Medical Branch MELOXICAM Yes [id number] Take 1 Un joby 15 mg 2-04 tablet by ity of tablet 00:00: mouth once 00 daily Medical Branch MELOXICAM Yes [id number] Take 1 Un joby 15 mg 2-04 tablet by ity of tablet 00:00: mouth once daily Medical Branch MELOXICAM Yes [id number] Take 1 Un joby 15 mg 2-04 tablet by ity of tablet 00:00: mouth once [place] 00 daily Medical Branch insulin NPH Yes [id number] INJECT 20 Univers (NOVOLIN N 1-25 UNITS ity of NPH U-100 00:00: SUBCUTANEO [place] INSULIN) 00 USLY ONCE Medica l 100 unit/mL DAILY WITH Br anch injection BREAKFAST escitalopra Yes [id number] 20mg Take 1 Univers m oxalate 1-25 tablet by ity o f (LEXAPRO) 00:00: mouth [place] 20 mg 00 daily. Medical tablet Branch insulin NPH Yes [id number] INJECT 20 Univers (NOVOLIN N 1-25 UNITS ity of NPH U-100 00:00: [place]BCUTANEO [place] INSULIN) 00 USLY ONCE Medica l 100 unit/mL DAILY WITH Br anch injection BREAKFAST escitalopra Yes [id number] 20mg Take 1 Univers m oxalate 1-25 tablet by ity o f (LEXAPRO) 00:00: mouth [place] 20 mg 00 daily. Medical tablet Branch insulin NPH Yes [id number] INJECT 20 Univers (NOVOLIN N 1-25 UNITS ity of NPH U-100 00:00: SUBCUTANEO [place] INSULIN) 00 USLY ONCE Medica l 100 unit/mL DAILY WITH Br anch injection BREAKFAST escitalopra Yes [id number] 20mg Take 1 Univers m oxalate 1-25 tablet by ity o f (LEXAPRO) 00:00: mouth [place] 20 mg 00 daily. Medical tablet Branch insulin NPH Yes [id number] INJECT 20 Univers (NOVOLIN N 1-25 UNITS ity of NPH U-100 00:00: SUBCUTANEO [place] INSULIN) 00 USLY ONCE Medica l 100 unit/mL DAILY WITH Br anch injection BREAKFAST escitalopra Yes [id number] 20mg Take 1 Univers m oxalate 1-25 tablet by ity o f (LEXAPRO) 00:00: mouth [place] 20 mg 00 daily. Medical tablet Branch insulin NPH Yes [id number] INJECT 20 Univers (NOVOLIN N 1-25 UNITS ity of NPH U-100 00:00: SUBC[place]ANEO [place] INSULIN) 00 USLY ONCE Medica l 100 unit/mL DAILY WITH Br anch injection BREAKFAST escitalopra Yes [id number] 20mg Take 1 Univers m oxalate 1-25 tablet by ity o f (LEXAPRO) 00:00: mouth [place] 20 mg 00 daily. Medical tablet Branch insulin NPH Yes [id number] INJECT 20 Univers (NOVOLIN N 1-25 UNITS ity of NPH U-100 00:00: [place]BC[place]ANEO [place] INSULIN) 00 USLY ONCE Medica l 100 unit/mL DAILY WITH Br anch injection BREAKFAST escitalopra Yes [id number] 20mg Take 1 Univers m oxalate 1-25 tablet by ity o f (LEXAPRO) 00:00: mouth [place] 20 mg 00 daily. Medical tablet Branch insulin NPH Yes [id number] INJECT 20 Univers (NOVOLIN N 1-25 UNITS ity of NPH U-100 00:00: [place]BCUTANEO [place] INSULIN) 00 USLY ONCE Medica l 100 unit/mL DAILY WITH Br anch injection BREAKFAST escitalopra Yes [id number] 20mg Take 1 Univers m oxalate 1-25 tablet by ity o f (LEXAPRO) 00:00: mouth [place] 20 mg 00 daily. Medical tablet Branch insulin NPH Yes [id number] INJECT 20 Univers (NOVOLIN N 1-25 UNITS ity of NPH U-100 00:00: [place]BCUTANEO [place] INSULIN) 00 USLY ONCE Medica l 100 unit/mL DAILY WITH Br anch injection BREAKFAST escitalopra Yes [id number] 20mg Take 1 Univers m oxalate 1-25 tablet by ity o f (LEXAPRO) 00:00: mouth [place] 20 mg 00 daily. Medical tablet Branch insulin NPH Yes [id number] INJECT 20 Univers (NOVOLIN N 1-25 UNITS ity of NPH U-100 00:00: [place] INSULIN) 00 USLY ONCE Medica l 100 unit/mL DAILY WITH Br anch injection BREAKFAST escitalopra Yes [id number] 20mg Take 1 Univers m oxalate 1-25 tablet by ity o f (LEXAPRO) 00:00: mouth [place] 20 mg 00 daily. Medical tablet Branch NOVOLIN R 2021-0 Yes [id number] INJECT 15 Univers REGULAR 1-21 UNITS ity of U-100 00:00: SUBCUTANEO [place] INSULN 100 00 USLY THREE Med ical unit/mL TIMES Branch solution DAILY BEFORE MEAL(S) HYDROXYZINE 0 Yes [id number] TAKE 1 TO Univers 25 mg 1-21 2 TABLETS ity of tablet 00:00: BY MOUTH [place] 00 EVERY 6 Medical HOURS Branch NEEDED FOR ANXIETY NOVOLIN R 2021-0 Yes [id number] INJECT 15 Univers REGULAR 1-21 UNITS ity of U[facility] 00:[facility] USLY THREE Med ical unit/mL TIMES Branch solution DAILY BEFORE MEAL(S) HYDROXYZINE 2021-0 Yes [id number] TAKE 1 TO Univers 25 mg 1-21 2 TABLETS ity of tablet 00:00: BY MOUTH [place] 00 EVERY 6 Medical HOURS Branch NEEDED FOR ANXIETY NOVOLIN R 2021-0 Yes [id number] INJECT 15 Univers REGULAR 1-21 UNITS ity of U-100 00:[facility] 00 USLY THREE Med ical unit/mL TIMES Branch solution DAILY BEFORE MEAL(S) HYDROXYZINE 2021-0 Yes [id number] TAKE 1 TO Univers 25 mg 1-21 2 TABLETS ity of tablet 00:00: BY MOUTH [place] 00 EVERY 6 Medical HOURS Branch NEEDED FOR ANXIETY NOVOLIN R 2021-0 Yes [id number] INJECT 15 Univers REGULAR 1-21 UNITS ity of U-100 00:00: [facility] INSULN 100 00 USLY THREE Med ical unit/mL TIMES Branch solution DAILY BEFORE MEAL(S) HYDROXYZINE 2021-0 Yes [id number] TAKE 1 TO Univers 25 mg 1-21 2 TABLETS ity of tablet 00:00: BY MOUTH [place] 00 EVERY 6 Medical HOURS Branch NEEDED FOR ANXIETY NOVOLIN R 2022-0 Yes [id number] INJECT 15 Univers REGULAR 1-21 UNITS ity of U-100 00:00: [facility] 00 USLY THREE Med ical unit/mL TIMES Branch solution DAILY BEFORE MEAL(S) HYDROXYZINE 2021-0 Yes [id number] TAKE 1 TO Univers 25 mg 1-21 2 TABLETS ity of tablet 00:00: BY MOUTH [place] 00 EVERY 6 Medical HOURS Branch NEEDED FOR ANXIETY NOVOLIN R 2022-0 Yes [id number] INJECT 15 Univers REGULAR 1-21 UNITS ity of U[facility]100 00:00[facility] [place] INSULN 100 00 USLY THREE Med ical unit/mL TIMES Branch solution DAILY BEFORE MEAL(S) HYDROXYZINE 2021-0 Yes [id number] TAKE 1 TO Univers 25 mg 1-21 2 TABLETS ity of tablet 00:00: BY MOUTH [place] 00 EVERY 6 Medical HOURS Branch NEEDED FOR ANXIETY NOVOLIN R 2022-0 Yes [id number] INJECT 15 Univers REGULAR 1-21 UNITS ity of U-100 00:00: [facility] INSU 100 00 USLY THREE Med ical unit/mL TIMES Branch solution DAILY BEFORE MEAL(S) HYDROXYZINE 2021-0 Yes [id number] TAKE 1 TO Univers 25 mg 1-21 2 TABLETS ity of tablet 00:00: BY MOUTH [place] 00 EVERY 6 Medical HOURS Branch NEEDED FOR ANXIETY NOVOLIN R 2-0 Yes [id number] INJECT 15 Univers REGULAR 1-21 UNITS ity of U-100 00:00: [facility] INSULN 100 00 USLY THREE Med ical unit/mL TIMES Branch solution DAILY BEFORE MEAL(S) HYDROXYZINE 2-0 Yes [id number] TAKE 1 TO Univers 25 mg 1-21 2 TABLETS ity of tablet 00:00: BY MOUTH [place] 00 EVERY 6 Medical HOURS Branch NEEDED FOR ANXIETY NOVOLIN R 2022-0 Yes [id number] INJECT 15 Univers REGULAR 1-21 UNITS ity of U-100 00:00: [facility] INSULN 100 00 USLY THREE Med ical unit/mL TIMES Branch solution DAILY BEFORE MEAL(S) HYDROXYZINE 2-0 Yes [id number] TAKE 1 TO Univers 25 mg 1-21 2 TABLETS ity of tablet 00:00: BY MOUTH [place] [address] EVERY 6 Medical HOURS Branch NEEDED FOR ANXIETY MONTELUKAST 2022-0 Yes [id number] Take 1 Univers 10 mg 1-03 tablet by ity of tablet 00:00: mouth once [place] daily [facility] Yes [id number] Take 1 Univers 10 mg 1-03 tablet by ity of tablet 00:00: mouth once [place] daily [facility] Yes [id number] Take 1 Univers 10 mg 1-03 tablet by ity of tablet 00:00: mouth once [place] daily [facility] Yes [id number] Take 1 Univers 10 mg 1-03 tablet by ity of tablet 00:00: mouth once [place] daily [facility] Yes [id number] Take 1 Univers 10 mg 1-03 tablet by ity of tablet 00:00: mouth once [place] daily [facility] Yes [id number] Take 1 Univers 10 mg 1-03 tablet by ity of tablet 00:00: mouth once [place] daily [facility] Yes [id number] Take 1 Univers 10 mg 1-03 tablet by ity of tablet 00:00: mouth once [place] daily [facility] Yes [id number] Take 1 Univers 10 mg 1-03 tablet by ity of tablet 00:00: mouth once [place] daily [facility] Yes [id number] Take 1 Univers 10 mg 1-03 tablet by ity of tablet 00:00: mouth once [place] daily [facility] NUVARING 2020-08 Yes [id number] 1{each} Insert 1 Univers (NUVARING) 1-15 Each into ity of 0.12-0.015 00:00: vagina [place] mg/24 hr 00 once every Medic al vaginal month. Branch insert Insert vaginally and leave in place for 3 consecutiv e weeks, then remove for 1 week. metformin 2020-08 Yes [id number] TAKE 2 U nivers ER 500 mg 1-15 TABLETS BY ity of 24 hr 00:00: MOUTH ONCE [place] tablet 00 DAILY IN [facility] MORNING AND 3 ONCE DAILY IN THE EVENING. Needs follow up visit for further refills glyBURIDE 5 2020-08 Yes [id number] 5mg Take 1 Univers mg tablet 1-15 tablet by ity o f 00:00: mouth 2 (two) [facility] daily with meals. Needs follow up visit for further refills atorvastati 2020-08 Yes [id number] 20mg Take 1 Univers n 20 mg 1-15 tablet by ity of tablet 00:00: mouth at [place] 00 bedtime. [facility] NUVARING 2020-08 Yes [id number] 1{each} Insert 1 Univers (NUVARING) 1-15 Each into ity of 0.12-0.015 00:00: vagina [place] mg/24 hr 00 once every Medic al vaginal month. Branch insert Insert vaginally and leave in place for 3 consecutiv e weeks, then remove for 1 week. metformin 2020-08 Yes [id number] TAKE 2 U nivers ER 500 mg 1-15 TABLETS BY ity of 24 hr 00:00: MOUTH ONCE [place] tablet 00 DAILY IN [facility] MORNING AND 3 ONCE DAILY IN THE EVENING. Needs follow up visit for further refills glyBURIDE 5 2020-08 Yes [id number] 5mg Take 1 Univers mg tablet 1-15 tablet by ity o f 00:00: mouth 2 (two) [facility] daily with meals. Needs follow up visit for further refills atorvastati 2020-08 Yes [id number] 20mg Take 1 Univers n 20 mg 1-15 tablet by ity of tablet 00:00: mouth at [place] 00 bedtime. [facility] NUVARING 2020-08 Yes [id number] 1{each} Insert 1 Univers (NUVARING) 1-15 Each into ity of 0.12-0.015 00:00: vagina [place] mg/24 hr 00 once every Medic al vaginal month. Branch insert Insert vaginally and leave in place for 3 consecutiv e weeks, then remove for 1 week. metformin 2020-08 Yes [id number] TAKE 2 U nivers ER 500 mg 1-15 TABLETS BY ity of 24 hr 00:00: MOUTH ONCE [place] tablet 00 DAILY IN [facility] MORNING AND 3 ONCE DAILY IN THE EVENING. Needs follow up visit for further refills glyBURIDE 5 2020-08 Yes [id number] 5mg Take 1 Univers mg tablet 1-15 tablet by ity o f 00:00: mouth 2 (two) [facility] daily with meals. Needs follow up visit for further refills atorvastati 2020-08 Yes [id number] 20mg Take 1 Univers n 20 mg 1-15 tablet by ity of tablet 00:00: mouth at [place] 00 bedtime. [facility] NUVARING 2020-08 Yes [id number] 1{each} Insert 1 Univers (NUVARING) 1-15 Each into ity of 0.12-0.015 00:00: vagina [place] mg/24 hr 00 once every Medic al vaginal month. Branch insert Insert vaginally and leave in place for 3 consecutiv e weeks, then remove for 1 week. metformin 2020-08 Yes [id number] TAKE 2 U nivers ER 500 mg 1-15 TABLETS BY ity of 24 hr 00:00: MOUTH ONCE [place] tablet 00 DAILY IN [facility] MORNING AND 3 ONCE DAILY IN THE EVENING. Needs follow up visit for further refills glyBURIDE 5 2020-08 Yes [id number] 5mg Take 1 Univers mg tablet 1-15 tablet by ity o f 00:00: mouth 2 (two) [facility] daily with meals. Needs follow up visit for further refills atorvastati 2020-08 Yes [id number] 20mg Take 1 Univers n 20 mg 1-15 tablet by ity of tablet 00:00: mouth at [place] 00 bedtime. [facility] NUVARING 2020-08 Yes [id number] 1{each} Insert 1 Univers (NUVARING) 1-15 Each into ity of 0.12-0.015 00:00: vagina [place] mg/24 hr 00 once every Medic al vaginal month. Branch insert Insert vaginally and leave in place for 3 consecutiv e weeks, then remove for 1 week. metformin 2020-08 Yes [id number] TAKE 2 U nivers ER 500 mg 1-15 TABLETS BY ity of 24 hr 00:00: MOUTH ONCE [place] tablet 00 DAILY IN [facility] MORNING AND 3 ONCE DAILY IN THE EVENING. Needs follow up visit for further refills glyBURIDE 5 2020-08 Yes [id number] 5mg Take 1 Univers mg tablet 1-15 tablet by ity o f 00:00: mouth 2 [place] 00 (two) [facility] daily with meals. Needs follow up visit for further refills atorvastati 2020-08 Yes [id number] 20mg Take 1 Univers n 20 mg 1-15 tablet by ity of tablet 00:00: mouth at [place] 00 bedtime. [facility] NUVARING 2020-08 Yes [id number] 1{each} Insert 1 Univers (NUVARING) 1-15 Each into ity of 0.12-0.015 00:00: vagina [place] mg/24 hr 00 once every Medic al vaginal month. Branch insert Insert vaginally and leave in place for 3 consecutiv e weeks, then remove for 1 week. metformin 2020-08 Yes [id number] TAKE 2 U nivers ER 500 mg 1-15 TABLETS BY ity of 24 hr 00:00: MOUTH ONCE [place] tablet 00 DAILY IN [facility] MORNING AND 3 ONCE DAILY IN THE EVENING. Needs follow up visit for further refills glyBURIDE 5 2020-08 Yes [id number] 5mg Take 1 Univers mg tablet 1-15 tablet by ity o f 00:00: mouth 2 (two) [facility] daily with meals. Needs follow up visit for further refills atorvastati 2020-08 Yes [id number] 20mg Take 1 Univers n 20 mg 1-15 tablet by ity of tablet 00:00: mouth at [place] 00 bedtime. [facility] NUVARING 2020-08 Yes [id number] 1{each} Insert 1 Univers (NUVARING) 1-15 Each into ity of 0.12-0.015 00:00: vagina [place] mg/24 hr 00 once every Medic al vaginal month. Branch insert Insert vaginally and leave in place for 3 consecutiv e weeks, then remove for 1 week. metformin 2020-08 Yes [id number] TAKE 2 U nivers ER 500 mg 1-15 TABLETS BY ity of 24 hr 00:00: MOUTH ONCE [place] tablet 00 DAILY IN [facility] MORNING AND 3 ONCE DAILY IN THE EVENING. Needs follow up visit for further refills glyBURIDE 5 2020-08 Yes [id number] 5mg Take 1 Univers mg tablet 1-15 tablet by ity o f 00:00: mouth 2 (two) [facility] daily with meals. Needs follow up visit for further refills atorvastati 2020-08 Yes [id number] 20mg Take 1 Univers n 20 mg 1-15 tablet by ity of tablet 00:00: mouth at [place] 00 bedtime. [facility] NUVARING 2020-08 Yes [id number] 1{each} Insert 1 Univers (NUVARING) 1-15 Each into ity of 0.12-0.015 00:00: vagina [place] mg/24 hr 00 once every Medic al vaginal month. Branch insert Insert vaginally and leave in place for 3 consecutiv e weeks, then remove for 1 week. metformin 2020-08 Yes [id number] TAKE 2 U nivers ER 500 mg 1-15 TABLETS BY ity of 24 hr 00:00: MOUTH ONCE [place] tablet 00 DAILY IN [facility] MORNING AND 3 ONCE DAILY IN THE EVENING. Needs follow up visit for further refills glyBURIDE 5 2020-08 Yes [id number] 5mg Take 1 Univers mg tablet 1-15 tablet by ity o f 00:00: mouth 2 (two) [facility] daily with meals. Needs follow up visit for further refills atorvastati 2020-08 Yes [id number] 20mg Take 1 Univers n 20 mg 1-15 tablet by ity of tablet 00:00: mouth at [place] 00 bedtime. [facility] NUVARING 2020-08 Yes [id number] 1{each} Insert 1 Univers (NUVARING) 1-15 Each into ity of 0.12-0.015 00:00: vagina [place] mg/24 hr 00 once every Medic al vaginal month. Branch insert Insert vaginally and leave in place for 3 consecutiv e weeks, then remove for 1 week. metformin 2020-08 Yes [id number] TAKE 2 U nivers ER 500 mg 1-15 TABLETS BY ity of 24 hr 00:00: MOUTH ONCE [place] tablet 00 DAILY IN [facility] MORNING AND 3 ONCE DAILY IN THE EVENING. Needs follow up visit for further refills glyBURIDE 5 2020-08 Yes [id number] 5mg Take 1 Univers mg tablet 1-15 tablet by ity o f 00:00: mouth 2 00 (two) [facility] daily with meals. Needs follow up visit for further refills atorvastati 2020-08 Yes [id number] 20mg Take 1 Univers n 20 mg 1-15 tablet by ity of tablet 00:00: mouth at [place] 00 bedtime. [facility] Guaifenesin 2020-08 Yes [id number] 5 ml po q Univers 200 mg/5 mL 1-13 6 h prn ity o f Liqd 00:00: cough [place] 00 Medical Branch Guaifenesin 2020-08 Yes [id number] ml po q Univers 200 mg/5 mL 1-13 6 h prn ity o f Liqd 00:00: cough Medical Branch Guaifenesin 2020-08 Yes [id number] 5 ml po q Univers 200 mg/5 mL 1-13 6 h prn ity o f Liqd 00:00: cough Medical Branch Guaifenesin 2020-08 Yes [id number] 5 ml po q Univers 200 mg/5 mL 1-13 6 h prn ity o f Liqd 00:00: cough Medical Branch Guaifenesin 2020-08 Yes [id number] 5 ml po q Univers 200 mg/5 mL 1-13 6 h prn ity o f Liqd 00:00: cough Medical Branch Guaifenesin 2020-08 Yes [id number] 5 ml po q Univers 200 mg/5 mL 1-13 6 h prn ity o f Liqd 00:00: cough Medical Branch Guaifenesin 2020-08 Yes [id number] 5 ml po q Univers 200 mg/5 mL 1-13 6 h prn ity o f Liqd 00:00: cough Medical Branch Guaifenesin 2020-08 Yes [id number] 5 ml po q Univers 200 mg/5 mL 1-13 6 h prn ity o f Liqd 00:00: cough Medical Branch Guaifenesin 2020-08 Yes [id number] 5 ml po q Univers 200 mg/5 mL 1-13 6 h prn ity o f Liqd 00:00: cough Medical Branch mupirocin 2 2020-08 Yes [id number] Apply to Univers % ointment 0-25 area(s) 3 ity of 00:00: (three) [place] times Medical daily. Branch mupirocin 2 2020- Yes [id number] Apply to Univers % ointment 0-25 area(s) 3 ity of 00:00: (three) [place] times Medical daily. Branch mupirocin 2 2020-08 Yes [id number] Apply to Univers % ointment 0-25 area(s) 3 ity of 00:00: (three) [place] times Medical daily. Branch mupirocin 2 2020- Yes [id number] Apply to Univers % ointment 0-25 area(s) 3 ity of 00:00: (three) [place] 00 times Medical daily. Branch mupirocin 2 2020-1 Yes [id number] Apply to Univers % ointment 0-25 area(s) 3 ity of 00:00: (three) [place] 00 times Medical daily. Branch mupirocin 2 2020- Yes [id number] Apply to Univers % ointment 0-25 area(s) 3 ity of 00:00: (three) [place] 00 times Medical daily. Branch mupirocin 2 2020- Yes [id number] Apply to Univers % ointment 0-25 area(s) 3 ity of 00:00: (three) [place] 00 times Medical daily. Branch mupirocin 2 2020- Yes [id number] Apply to Univers % ointment 0-25 area(s) 3 ity of 00:00: (three) [place] 00 times Medical daily. Branch mupirocin 2 2020- Yes [id number] Apply to Univers % ointment 0-25 area(s) 3 ity of 00:00: (three) [place] 00 times Medical daily. Branch semaglutide Yes [id number] 1mg inject 1 Univers (OZEMPIC) 1 9-13 mg under ity of mg/dose (2 00:00: the skin [place] mg/1.5 mL) 00 weekly. Medica l PnIj Branch empaglifloz 2020-0 Yes [id number] 10mg Take 1 Univers in 9-13 tablet by ity of (JARDIANCE) 00:00: mouth [place] 00 daily. Medical Branch semaglutide 2020-0 Yes [id number] 1mg inject 1 Univers (OZEMPIC) 1 9-13 mg under ity of mg/dose (2 00:00: the skin [place] mg/1.5 mL) 00 weekly. Medica l PnIj Branch empaglifloz 2020-0 Yes [id number] 10mg Take 1 Univers in 9-13 tablet by ity of (JARDIANCE) 00:00: mouth [place] 00 daily. Medical Branch semaglutide 2020-0 Yes [id number] 1mg inject 1 Univers (OZEMPIC) 1 9-13 mg under ity of mg/dose (2 00:00: the skin [place] mg/1.5 mL) 00 weekly. Medica l PnIj Branch empaglifloz 0 Yes [id number] 10mg Take 1 Univers in 9-13 tablet by ity of (JARDIANCE) 00:00: mouth [place] 00 daily. Medical Branch semaglutide 0 Yes [id number] 1mg inject 1 Univers (OZEMPIC) 1 9-13 mg under ity of mg/dose (2 00:00: the skin [place] mg/1.5 mL) 00 weekly. Medica l PnIj Branch empaglifloz 0 Yes [id number] 10mg Take 1 Univers in 9-13 tablet by ity of (JARDIANCE) 00:00: mouth [place] 00 daily. Medical Branch semaglutide Yes [id number] 1mg inject 1 Univers (OZEMPIC) 1 9-13 mg under ity of mg/dose (2 00:00: the skin [place] mg/1.5 mL) 00 weekly. Medica l Ij Branch empaglifloz 0 Yes [id number] 10mg Take 1 Univers in 9-13 tablet by ity of (JARDIANCE) 00:00: mouth [place] 00 daily. Medical Branch semaglutide 0 Yes [id number] 1mg inject 1 Univers (OZEMPIC) 1 9-13 mg under ity of mg/dose (2 00:00: the skin [place] mg/1.5 mL) 00 weekly. Medica l Ij Branch empaglifloz 0 Yes [id number] 10mg Take 1 Univers in 9-13 tablet by ity of (JARDIANCE) 00:00: mouth [place] 00 daily. Medical Branch semaglutide 0 Yes [id number] 1mg inject 1 Univers (OZEMPIC) 1 9-13 mg under ity of mg/dose (2 00:00: the skin [place] mg/1.5 mL) 00 weekly. Medica l PnIj Branch empaglifloz 0 Yes [id number] 10mg Take 1 Univers in 9-13 tablet by ity of (JARDIANCE) 00:00: mouth [place] 00 daily. Medical Branch semaglutide 2020-0 Yes [id number] 1mg inject 1 Univers (OZEMPIC) 1 9-13 mg under ity of mg/dose (2 00:00: the skin [place] mg/1.5 mL) 00 weekly. Medica l PnIj Branch empaglifloz 2020-0 Yes [id number] 10mg Take 1 Univers in 9-13 tablet by ity of (JARDIANCE) 00:00: mouth [place] 00 daily. Medical Branch semaglutide 2020-0 Yes [id number] 1mg inject 1 Univers (OZEMPIC) 1 9-13 mg under ity of mg/dose (2 00:00: the skin [place] mg/1.5 mL) 00 weekly. Medica l PnIj Branch empaglifloz 2020-0 Yes [id number] 10mg Take 1 Univers in 9-13 tablet by ity of (JARDIANCE) 00:00: mouth [place] 00 daily. Medical Branch tiZANidine 2020-0 Yes [id number] 4mg Take 1 Univers 4 mg tablet 8-12 9100 tablet by ity of 00:00: mouth 3 (three) Medical times Branch daily as needed (muscle spasm). tiZANidine 2020-0 Yes [id number] 4mg Take 1 Univers 4 mg tablet 8-12 9100 tablet by ity of 00:00: mouth 3 00 (three) Medical times Branch daily as needed (muscle spasm). tiZANidine 2020-0 Yes [id number] 4mg Take 1 Univers 4 mg tablet 8-12 9100 tablet by ity of 00:00: mouth 3 (three) Medical times Branch daily as needed (muscle spasm). tiZANidine 2020-0 Yes [id number] 4mg Take 1 Univers 4 mg tablet 8-12 9100 tablet by ity of 00:00: mouth 3 00 (three) Medical times Branch daily as needed (muscle spasm). tiZANidine 2020-0 Yes [id number] 4mg Take 1 Univers 4 mg tablet 8-12 9100 tablet by ity of 00:00: mouth 3 [place] 00 (three) Medical times Branch daily as needed (muscle spasm). tiZANidine 2020-0 Yes [id number] 4mg Take 1 Univers 4 mg tablet 8-12 9100 tablet by ity of 00:00: mouth 3 00 (three) Medical times Branch daily as needed (muscle spasm). tiZANidine 0 Yes [id number] 4mg Take 1 Univers 4 mg tablet 800 tablet by ity of 00:00: mouth 3 (three) Medical times Branch daily as needed (muscle spasm). tiZANidine 0 Yes [id number] 4mg Take 1 Univers 4 mg tablet 800 tablet by ity of 00:00: mouth 3 (three) Medical times Branch daily as needed (muscle spasm). tiZANidine 2022- No [id number] 4mg Take 1 Univers 4 mg tablet 811-2200 tablet by it y of 00:00: 00:00 mouth 3 00 :00 (three) Medical times Branch daily as needed (muscle spasm). albuterol Yes [id number] 2{puff} Inhale 2 Univers 90 7-07 Puffs ity of mcg/actuati 00:00: every 6 [place] as on inhaler 00 (six) Medical hours as Branch needed for Wheezing or Shortness of Breath. albuterol Yes [id number] 2{puff} Inhale 2 Univers 90 7-07 Puffs ity of mcg/actuati 00:00: every 6 [place] on inhaler 00 (six) Medical hours as Branch needed for Wheezing or Shortness of Breath. albuterol Yes [id number] 2{puff} Inhale 2 Univers 90 7-07 Puffs ity of mcg/actuati 00:00: every 6 [place] on inhaler 00 (six) Medical hours as Branch needed for Wheezing or Shortness of Breath. albuterol Yes [id number] 2{puff} Inhale 2 Univers 90 7-07 Puffs ity of mcg/actuati 00:00: every 6 [place] on inhaler 00 (six) Medical hours as Branch needed for Wheezing or Shortness of Breath. albuterol Yes [id number] 2{puff} Inhale 2 Univers 90 7-07 Puffs ity of mcg/actuati 00:00: every 6 [place] on inhaler 00 (six) Medical hours as Branch needed for Wheezing or Shortness of Breath. albuterol Yes [id number] 2{puff} Inhale 2 Univers 90 7-07 Puffs ity of mcg/actuati 00:00: every 6 [place] on inhaler 00 (six) Medical hours as Branch needed for Wheezing or Shortness of Breath. albuterol Yes [id number] 2{puff} Inhale 2 Univers 90 7-07 Puffs ity of mcg/actuati 00:00: every 6 [place] on inhaler 00 (six) Medical hours as Branch needed for Wheezing or Shortness of Breath. albuterol Yes [id number] 2{puff} Inhale 2 Univers 90 7-07 Puffs ity of mcg/actuati 00:00: every 6 [place] on inhaler 00 (six) Medical hours as Branch needed for Wheezing or Shortness of Breath. albuterol Yes [id number] 2{puff} Inhale 2 Univers 90 7-07 Puffs ity of mcg/actuati 00:00: every 6 [place] on inhaler 00 (six) Medical hours as Branch needed for Wheezing or Shortness of Breath. hydrocortis Yes [id number] 1{appli Insert 1 Univers one-pramovi 5-03 cator} Applicator ity of ne rectal 00:00: into [place] foam 00 rectum 2 Medical (two) Branch times daily. hydrocortis Yes [id number] 1{appli Insert 1 Univers one-pramovi 5-03 cator} Applicator ity of ne rectal 00:00: into [place] foam 00 rectum 2 Medical (two) Branch times daily. hydrocortis Yes [id number] 1{appli Insert 1 Univers one-pramovi 5-03 cator} Applicator ity of ne rectal 00:00: into [place] foam 00 rectum 2 Medical (two) Branch times daily. hydrocortis Yes [id number] 1{appli Insert 1 Univers one-pramovi 5-03 cator} Applicator ity of ne rectal 00:00: into [place] foam 00 rectum 2 Medical (two) Branch times daily. hydrocortis Yes [id number] 1{appli Insert 1 Univers one-pramovi 5-03 cator} Applicator ity of ne rectal 00:00: into [place] foam 00 rectum 2 Medical (two) Branch times daily. hydrocortis Yes [id number] 1{appli Insert 1 Univers one-pramovi 5-03 cator} Applicator ity of ne rectal 00:00: into [place] foam 00 rectum 2 Medical (two) Branch times daily. hydrocortis Yes [id number] 1{appli Insert 1 Univers one-pramovi 5-03 cator} Applicator ity of ne rectal 00:00: into [place] foam 00 rectum 2 Medical (two) Branch times daily. hydrocortis Yes [id number] 1{appli Insert 1 Univers one-pramovi 5-03 cator} Applicator ity of ne rectal 00:00: into [place] foam 00 rectum 2 Medical (two) Branch times daily. hydrocortis Yes [id number] 1{appli Insert 1 Univers one-pramovi 5-03 cator} Applicator ity of ne rectal 00:00: into [place] foam 00 rectum 2 Medical (two) Branch times daily. Insulin 2020-1 Yes Use as Univers Syringe-Nee 1-12 directed ity of dle U-100 1 00:00: [place] mL 31 gauge 00 Medical x 5/16 Syrg Branch Insulin 2020-1 Yes Use as Univers Syringe-Nee 1-12 directed ity of dle U-100 1 00:00: [place] mL 31 gauge 00 Medical x 5/16 Syrg Branch Insulin 2020-1 Yes Use as Univers Syringe-Nee 1-12 directed ity of dle U-100 1 00:00: [place] mL 31 gauge 00 Medical x 5/16 Syrg Branch Insulin 2020-1 Yes Use as Univers Syringe-Nee 1-12 directed ity of dle U-100 1 00:00: [place] mL 31 gauge 00 Medical x 5/16 Syrg Branch Insulin 2020-1 Yes Use as Univers Syringe-Nee 1-12 directed ity of dle U-100 1 00:00: [place] mL 31 gauge 00 Medical x 5/16 Syrg Branch Insulin 2020-1 Yes Use as Univers Syringe-Nee 1-12 directed ity of dle U-100 1 00:00: [place] mL 31 gauge 00 Medical x 5/16 Syrg Branch Insulin 2020-1 Yes Use as Univers Syringe-Nee 1-12 directed ity of dle U-100 1 00:00: [place] mL 31 gauge 00 Medical x 5/16 Syrg Branch Insulin 2020- Yes Use as Univers Syringe-Nee 1-12 directed ity of dle U-100 1 00:00: [place] mL 31 gauge 00 Medical x 5/16 Syrg Branch Insulin 2020- Yes Use as Univers Syringe-Nee 1-12 directed ity of dle U-100 1 00:00: [place] mL 31 gauge 00 Medical x 5/16 Syrg Branch Immunizations Ordered Filled Immunization Date Status Comments [facility] e Immunization Name Name Influenza Virus 2021-07-01 Completed Universit y of Vaccine [place] .5 mL 00:00:00 [place] Medical IM 6+ MO Branch Influenza Virus 2021-07-01 Completed Universit y of Vaccine [place] .5 mL 00:00:00 [place] Medical IM 6+ MO Branch Influenza Virus 2021-07-01 Completed Universit y of Vaccine [place] .5 mL 00:00:00 [place] Medical IM 6+ MO Branch Influenza Virus 2021-07-01 Completed Universit y of Vaccine Quad .5 mL 00:00:00 [place] Medical IM 6+ MO Branch Influenza Virus 2021-07-01 Completed Universit y of Vaccine Quad .5 mL 00:00:00 [place] Medical IM 6+ MO Branch Influenza Virus 2021-07-01 Completed Universit y of Vaccine Quad .5 mL 00:00:00 [place] Medical IM 6+ MO Branch Influenza Virus 2021-07-01 Completed Universit y of Vaccine Quad .5 mL 00:00:00 [place] Medical IM 6+ MO Branch Influenza Virus 2021-07-01 Completed Universit y of Vaccine [place] .5 mL 00:00:00 [place] Medical IM 6+ MO Branch Influenza Virus 2021-07-01 Completed Universit y of Vaccine Quad .5 mL 00:00:00 [place] Medical IM 6+ MO Branch Pneumococcal 2020-07-13 Completed University o f Polysaccharide, 00:00:00 [place] Med ical PPSV23 (PNEUMOVAX) Branch Pneumococcal 2020-07-13 Completed University o f Polysaccharide, 00:00:00 [place] Med ical PPSV23 (PNEUMOVAX) Branch Pneumococcal 2020-07-13 Completed University o f Polysaccharide, 00:00:00 [place] Med ical PPSV23 (PNEUMOVAX) Branch Pneumococcal 2020-07-13 Completed University o f Polysaccharide, 00:00:00 [place] Med ical PPSV23 (PNEUMOVAX) Branch Pneumococcal 2020-07-13 Completed University o f Polysaccharide, 00:00:00 [place] [facility] PPSV23 (PNEUMOVAX) Branch Pneumococcal 2020-07-13 Completed University o f Polysaccharide, 00:00:00 [place] [facility] PPSV23 (PNEUMOVAX) Branch Pneumococcal 2020-07-13 Completed University o f Polysaccharide, 00:00:00 [place] [facility] PPSV23 (PNEUMOVAX) Branch Pneumococcal 2020-07-13 Completed University o f Polysaccharide, 00:00:00 [place] [facility] PPSV23 (PNEUMOVAX) Branch Pneumococcal 2020-07-13 Completed University o f Polysaccharide, 00:00:00 [place] [facility] PPSV23 (PNEUMOVAX) Branch Influenza Virus 2020-05-13 Completed Universit y of Vaccine Quad .5 mL 00:00:00 [place] [facility] 6+ MO [place] Influenza Virus 2020-05-13 Completed Universit y of Vaccine Quad .5 mL 00:00:00 [facility] 6+ [place] Influenza Virus 2020-05-13 Completed Universit y of Vaccine Quad .5 mL 00:00:00 [facility] 6+ MO [place] Influenza Virus 2020-05-13 Completed Universit y of Vaccine Quad .5 mL 00:00:00 [facility] 6+ MO [place] Influenza Virus 2020-05-13 Completed Universit y of Vaccine Quad .5 mL 00:00:00 [facility] 6+ [place] Influenza Virus 2020-05-13 Completed Universit y of Vaccine Quad .5 mL 00:00:00 [facility] IM 6+ MO Branch Influenza Virus 2020-05-13 Completed Universit y of Vaccine Quad .5 mL 00:00:00 [facility] IM 6+ MO Branch Influenza Virus 2020-05-13 Completed Universit y of Vaccine Quad .5 mL 00:00:00 [place] [facility] 6+ [place] Influenza Virus 2020-05-13 Completed Universit y of Vaccine Quad .5 mL 00:00:00 [facility] 6+ MO [place] Influenza Virus 2017-05-29 Completed Universit y of Vaccine Quad IM 3+ 00:00:00 [facility] Influenza Virus 2017-05-29 Completed Universit y of Vaccine Quad IM 3+ 00:00:00 [facility] Influenza Virus 2017-05-29 Completed Universit y of Vaccine Quad IM 3+ 00:00:00 [facility] Influenza Virus 2017-05-29 Completed Universit y of Vaccine Quad IM 3+ 00:00:00 [facility] Influenza Virus 2017-05-29 Completed Universit y of Vaccine Quad IM 3+ 00:00:00 [facility] Influenza Virus 2017-05-29 Completed Universit y of Vaccine Quad IM 3+ 00:00:00 [facility] Influenza Virus 2017-05-29 Completed Universit y of Vaccine Quad IM 3+ 00:00:00 [facility] Influenza Virus 2017-05-29 Completed Universit y of Vaccine Quad IM 3+ 00:00:00 [facility] Influenza Virus 2017-05-29 Completed Universit y of Vaccine Quad IM 3+ 00:00:00 [facility] MMR 2017-04-29 Completed University of 00:00:00 [facility] MMR 2017-04-29 Completed University of 00:00:00 [facility] MMR 2017-04-29 Completed University of 00:00:00 [facility] MMR 2017-04-29 Completed University of 00:00:00 [facility] MMR 2017-04-29 Completed University of 00:00:00 [facility] MMR 2017-04-29 Completed University of 00:00:00 [facility] MMR 2017-04-29 Completed University of 00:00:00 [facility] MMR 2017-04-29 Completed University of 00:00:00 [facility] MMR 2017-04-29 Completed University of 00:00:00 [facility] TDAP 2017-02-28 Completed University of 00:00:00 [facility] TDAP 2017-02-28 Completed University of 00:00:00 [facility] TDAP 2017-02-28 Completed University of 00:00:00 [facility] TDAP 2017-02-28 Completed University of 00:00:00 [facility] TDAP 2017-02-28 Completed University of 00:00:00 [facility] TDAP 2017-02-28 Completed University of 00:00:00 [facility] TDAP 2017-02-28 Completed University of 00:00:00 [facility] TDAP 2017-02-28 Completed University of 00:00:00 [facility] TDAP 2017-02-28 Completed University of 00:00:00 [facility] TDAP 2012-08-26 Completed University of 00:00:00 [facility] TDAP 2012-08-26 Completed University of 00:00:00 [facility] TDAP 2012-08-26 Completed University of 00:00:00 [facility] TDAP 2012-08-26 Completed University of 00:00:00 [facility] TDAP 2012-08-26 Completed University of 00:00:00 [facility] TDAP 2012-08-26 Completed University of 00:00:00 [facility] TDAP 2012-08-26 Completed University of 00:00:00 [facility] TDAP 2012-08-26 Completed University of 00:00:00 [facility] TDAP 2012-08-26 Completed University of 00:00:00 [facility] Vital Signs Vital Name Observation Time Observation Value Comments Source Heart rate 2021-11-14 20:15:00 77 /min [facility] Oxygen saturation in 2021-11-14 20:15:00 98 /min [facility] Arterial blood by [facility] Pulse oximetry Branch Systolic blood 2021-11-14 20:00:00 119 mm[Hg] Univer sity of pressure [facility] Diastolic blood 2021-11-14 20:00:00 80 mm[Hg] Unive rsity of [email or web address] Respiratory rate 2021-11-14 20:00:00 17 /min [facility] Body temperature 2021-11-14 18:10:00 35.89 [place] [facility] Body height 2021-11-14 16:01:00 162.6 cm [facility] Body weight 2021-11-14 16:01:00 92.08 kg [facility] BMI 2021-11-14 16:01:00 34.84 kg/m2 [facility] Systolic blood 2021-11-14 18:30:00 122 mm[Hg] Univer sity of pressure [facility] Diastolic blood 2021-11-14 18:30:00 79 mm[Hg] Unive rsity of pressure [facility] Heart rate 2021-11-14 18:30:00 79 /min [facility] Respiratory rate 2021-11-14 18:30:00 16 /min [facility] saturation in 2021-11-14 18:30:00 100 /min University of Arterial blood by [facility] Pulse oximetry Branch Body temperature 2021-11-14 18:10:00 35.89 [place] [facility] ersity [facility] Body height 2021-11-14 16:01:00 162.6 cm [facility] [place] [facility] [place] Body weight 2021-11-14 16:01:00 92.08 kg Universi ty of [facility] BMI 2021-11-14 16:01:00 34.84 kg/m2 Universi ty of [facility] Systolic blood 2021-11-08 19:05:00 118 mm[Hg] Univer sity of pressure [facility] Diastolic blood 2021-11-08 19:05:00 82 mm[Hg] Unive rsity of pressure [facility] Heart rate 2021-11-08 19:05:00 96 /min Universi ty of [facility] Body temperature 2021-11-08 19:05:00 36.94 [place] [facility] Respiratory rate 2021-11-08 19:05:00 20 /min [facility] Body height 2021-11-08 19:05:00 162.6 cm [facility]i [facility] [place] [facility] [place] Body weight 2021-11-08 19:05:00 92.171 kg Universi ty of [facility] BMI 2021-11-08 19:05:00 34.88 kg/m2 Universi ty of [facility] Oxygen saturation in 2021-11-08 19:05:00 96 /min University of Arterial blood by [facility] Pulse oximetry Branch Procedures Procedure Date / Time Performing Clinician Source Performed POCT GLUCOSE (AUTOMATED) 2021-11-14 19:45:00 Azalia Thurston [facility] POCT GLUCOSE (AUTOMATED) 2021-11-14 19:45:00 Marilu Azalia [facility] HEMORRHOIDECTOMY 2021-11-14 16:34:[address] [facility] POCT GLUCOSE (AUTOMATED) 2021-11-14 16:06:00 Marilu [facility] POCT GLUCOSE (AUTOMATED) 2021-11-14 16:06:00 Azalia Thurston [facility] POCT TEST 2021-11-14 15:50:00 Cait Lyons [facility] POCT TEST 2021-11-14 15:50:00 Cait Lyons [facility] CONSENT/REFUSAL FOR 2021-11-14 15:47:08 Doctor Unassigned, Unive rsity of [place] [facility] CONSENT/REFUSAL FOR 2021-11-14 15:47:08 Doctor Unassigned, Unive [facility] [place] [facility] ASSIGNMENT OF BENEFITS 2021-11-14 15:46:38 Doctor Unassigned, Un ivers[facility] [place] [facility] ASSIGNMENT OF BENEFITS 2021-11-14 15:46:38 Doctor Unassigned, Un [facility] [place] [facility] DAY SURGERY - VICTORY 2021-11-14 05:01:00 Doctor Unassigned, Uni versity of [place] [facility] CONSENT/REFUSAL FOR 2021-11-11 19:03:17 Doctor Unassigned, Unive rsity [facility] [place] [facility] CONSENT/REFUSAL FOR 2021-11-11 19:03:17 Doctor Unassigned, Unive [facility]ity of [place] [facility] ASSIGNMENT OF BENEFITS 2021-11-11 19:03:06 Doctor Unassigned, Un [facility] [place] [facility] ASSIGNMENT OF BENEFITS 2021-11-11 19:03:06 Doctor Unassigned, Un [facility] [place] [facility] Encounters Start End Encounter Admission Attending Care Care Encounter Source Date/Time Date/Time Type Type Clinicians Facility Department ID 2021-12-20 2021-12-20 Outpatient Annalee THURSTON [facility] [id number] -[id number] [facility] 14:30:00 14:30:00 AZALIA [id number] [facility] 2021-11-29 2021-11-29 Outpatient Annalee THURSTON [facility] [id number] -[id number] [facility] 15:30:00 15:30:00 [facility] [id number] [facility] 2021-11-22 2021-11-22 Telemedicbrooks Thurston [facility] [id number] Univers 16:00:00 16:15:00 ne Visit [facility] [id number] i ty of CANCER [id number] [facility] - [id number] [facility] [address] Branch 2021-11-22 2021-11-22 Outpatient Annalee THURSTON [facility] [id number] Univers 16:00:00 16:00:00 AZALIA camryn [facility] 2021-11-22 2021-11-22 Telephone [facility] [id number] Univers 00:00:00 00:00:00 Tona [facility] [id number] it y of MEDICINE [id number] [facility] - [id number] [address] 2021-11-22 2021-11-22 Telephone [facility] [id number] Univers 00:00:00 [facility]:00:[facility] [id number] it y of CANCER 4.2.7.2.686 [facility] s GUY - [id number] [address] 2021-11-20 2021-11-20 [facility] [id number] Univers 00:00:00 00:00:00 [facility] [id number] it y of CANCER [id number] [facility] s GUY - [id number] [address] 2021-11-20 2021-11-20 [facility] [id number] Univers 00:00:00 00:00:00 Azalia HEALTH [id number] it y of CANCER 4.2.7.2.686 [facility] - [id number] [address] 2021-11-15 2021-11-15 Outpatient Annalee CORLEY [facility] [id number] Univers 08:45:00 08:45:00 CAMILO guzmán [facility] 2021-11-14 2021-11-14 Outpatient Annalee THURSTON [facility] [place] [id number] Univers 10:46:00 15:24:00 AZALIA guzmán [facility] 2021-11-14 2021-11-14 [facility] [id number] Univers 10:46:00 15:24:00 Encounter Azalia GOMEZ [id number] ity of [place] 4.2.7.2.686 [facility] [id number] [address] ([facility]) 2021-11-14 2021-11-14 Surgery Marilu [facility] [id number] Univers 11:43:00 13:33:00 Azalia SPECIALTY [id number] ity of CARE [id number] [facility] AT [id number] Sc [address] 2021-11-11 2021-11-11 Laboratory Only, Adc Test [facility] [id number] Univers 14:00:00 14:15:00 Only Marilu Azalia MACDONALD [id number] ity of [place] 4.2.7.2.686 [facility] [id number] [address] 2021-11-11 2021-11-11 Outpatient R [facility] [id number] -[id number] Univers 14:00:00 14:00:00 [id number] [facility] 2021-11-11 2021-11-11 [facility] [id number] Univers 14:00:00 14:00:00 [facility] 2021-11-08 2021-11-08 Office Marilu [facility] [id number] Univers 14:15:00 14:30:00 Visit Azalia GOMEZ [id number] it y of CANCER [id number] [facility] - [id number] Med ical [address] Results Test Description Test Time Test Comments Results Result Comments Source POCT GLUCOSE (AUTOMATED) 2021-11-14 19:46:52 Test Item Value Reference Range Interpretation Comme nts POCT GLU (test code = 1689336016) 190 mg/dL 70-110 H Lab Interpretation (test code = 17657-6) Abnormal [facility]2021-11-14 19:46:52 Test Item Value Reference Range Interpretation Comments POCT GLU (test code = 3031292882) 190 mg/dL 70-110 H Lab Interpretation (test code = Abnormal 62188-9) [facility] GLUCOSE (AUTOMATED)2021-11-14 16:07:39 Test Item Value Reference Range Interpretation Comments POCT GLU (test code = 6347216938) 129 mg/dL 70-110 H Lab Interpretation (test code = Abnormal 15193-5) [facility] GLUCOSE (AUTOMATED)2021-11-14 16:07:39 Test Item Value Reference Range Interpretation Comments POCT GLU (test code = 5772169227) 129 mg/dL 70-110 H Lab Interpretation (test code = Abnormal 97361-5) [facility] [id number] 15:53:00 Test Item Value Reference Range Interpretation Comments POCT PREG (test code = 1605) Negative On board controls acceptable with C Yes Line (test code = 3574) POCT PREG LOT # (test code = 3575) POCT PREG TEST DATE (test code = 3576) Lab Interpretation (test code = Normal 60067-1) [facility] [id number] 15:53:00 Test Item Value Reference Range Interpretation Comments POCT PREG (test code = 1605) Negative On board controls acceptable with C Yes Line (test code = 3574) POCT PREG LOT # (test code = 3575) POCT PREG TEST DATE (test code = 3576) Lab Interpretation (test code = Normal 94917-3) [facility]
--- NOTE | 2021-11-26 08:18 | EDPHYS ---
Physician Documentation [facility] Name: Kelsey Harrell Age: 36 yrs Sex: Female : 1985 Arrival Date: 11/26/2021 Time: 07:22 Bed 19 Private MD: MIKE Physician Tony Morgan HPI: 11/26 08:10 This 36 yrs old Female presents to ER via Ambulatory with complaints of Post wally Surgical Pain. 08:10 The patient presents to the emergency department with pain in the rectal area, that is wally moderate. Onset: The symptoms/episode began/occurred 3 day(s) ago. Context: the patient has a known history of hemorrhoids, is post surgical. Modifying factors: The symptoms are alleviated by remaining still, sitz baths, The symptoms are aggravated by movement, sitting position. Associate signs and symptoms: The patient has no apparent associated signs or symptoms. The patient has not experienced similar symptoms in the past. Historical: - Allergies: 07:30 Latex, Natural Rubber; aa5 - PMHx: 07:30 Anxiety; chronic back pain; chronic bronchitis; diabetes mellitus; neuropathy; Vertigo; aa5 - PSHx: 07:30 "back injections"; Hemorrhoidectomy; aa5 - Social history:: Smoking status: Reported history of juuling and/or vaping. ROS: 08:13 Constitutional: Negative for fever, chills, and weight loss, Eyes: Negative for injury, wally pain, redness, and discharge, ENT: Negative for injury, pain, and discharge, Neck: Negative for injury, pain, and swelling, Cardiovascular: Negative for chest pain, palpitations, and edema, Respiratory: Negative for shortness of breath, cough, wheezing, and pleuritic chest pain, Back: Negative for injury and pain, : Negative for injury, bleeding, discharge, and swelling, MS/Extremity: Negative for injury and deformity, Skin: Negative for injury, rash, and discoloration, Neuro: Negative for headache, weakness, numbness, tingling, and seizure, Psych: Negative for depression, anxiety, suicide ideation, homicidal ideation, and hallucinations, Allergy/Immunology: Negative for hives, rash, and allergies, Endocrine: Negative for neck swelling, polydipsia, polyuria, polyphagia, and marked weight changes, Hematologic/Lymphatic: Negative for swollen nodes, abnormal bleeding, and unusual bruising. 08:13 Abdomen/GI: Positive for rectal pain. Exam: 08:13 Constitutional: This is a well developed, well nourished patient who is awake, alert, wally and in no acute distress. Head/Face: Normocephalic, atraumatic. Eyes: Pupils equal round and reactive to light, extra-ocular motions intact. Lids and lashes normal. Conjunctiva and sclera are non-icteric and not injected. Cornea within normal limits. Periorbital areas with no swelling, redness, or edema. ENT: Nares patent. No nasal discharge, no septal abnormalities noted. Tympanic membranes are normal and external auditory canals are clear. Oropharynx with no redness, swelling, or masses, exudates, or evidence of obstruction, uvula midline. Mucous membranes moist. Neck: Trachea midline, no thyromegaly or masses palpated, and no cervical lymphadenopathy. Supple, full range of motion without nuchal rigidity, or vertebral point tenderness. No Meningismus. Chest/axilla: Normal chest wall appearance and motion. Nontender with no deformity. No lesions are appreciated. Cardiovascular: Regular rate and rhythm with a normal S1 and S2. No gallops, murmurs, or rubs. Normal PMI, no JVD. No pulse deficits. Respiratory: Lungs have equal breath sounds bilaterally, clear to auscultation and percussion. No rales, rhonchi or wheezes noted. No increased work of breathing, no retractions or nasal flaring. Back: No spinal tenderness. No costovertebral tenderness. Full range of motion. Skin: Warm, dry with normal turgor. Normal color with no rashes, no lesions, and no evidence of cellulitis. MS/ Extremity: Pulses equal, no cyanosis. Neurovascular intact. Full, normal range of motion. Neuro: Awake and alert, GCS 15, oriented to person, place, time, and situation. Cranial nerves II-XII grossly intact. Motor strength 5/5 in all extremities. Sensory grossly intact. Cerebellar exam normal. Normal gait. Psych: Awake, alert, with orientation to person, place and time. Behavior, mood, and affect are within normal limits. 08:13 Abdomen/GI: Inspection: abdomen appears normal, Bowel sounds: normal, Palpation: abdomen is soft and non-tender, Liver: no appreciated palpable abnormalities, Hernia: not appreciated. Vital Signs: 07:30 BP 111 / 78; Pulse 76; Resp 16 S; Temp 97.9(TE); Pulse Ox 99% on R/A; Weight 97.07 kg aa5 (R); Height 5 ft. 4 in. (162.56 cm) (R); 07:49 BP 111 / 78; Pulse 77; Resp 18; Temp 97.9; Pulse Ox 100% ; mb7 07:30 Body Mass Index 36.73 (97.07 kg, 162.56 cm) aa5 MDM: 07:30 Patient medically screened. [facility] 11/26 08:41 Order name: Urine Dipstick-Ancillary [facility] 11/26 08:10 Order name: Urine Dipstick-Ancillary (obtain specimen); Complete Time: 08:43 [facility] 11/26 08:10 Order name: Urine Test (obtain specimen); Complete Time: 08:43 [facility] Administered Medications: 08:54 Drug: Cipro (ciprofloxacin) 500 mg Route: PO; [facility] 08:55 Follow up: Response: Medication administered at discharge. aa5 Disposition Summary: 11/26/21 08:18 Discharge Ordered Location: Home wally Problem: new wally Symptoms: have improved wally Condition: Stable wally Diagnosis - Other hemorrhoids - sp hemmorhoids surgery wally Followup: wally - With: Private Physician - When: 2 - 3 days - Reason: Recheck today's complaints, Continuance of care, Re-evaluation by your physician Discharge Instructions: - Discharge Summary Sheet wally - Hemorrhoids wally - Surgical Procedures for Hemorrhoids, Care After wally - Hemorrhoids, [id number] wally - Surgical Procedures for Hemorrhoids wally - How to Take a Sitz Bath wally Forms: - Medication Reconciliation Form wally - Thank You Letter wally - Antibiotic Education wally - Prescription Opioid Use wally Prescriptions: - Colace 100 mg Oral Capsule - take 1 tablet by ORAL route every 12 hours; 20 tablet; Refills: 0, Product [facility] Selection Permitted - Cipro 500 mg Oral Tablet - take 1 tablet by ORAL route every 12 hours for 7 days; 14 tablet; Refills: 0, wally Product Selection Permitted - Tylenol-Codeine #3 300 mg-30 mg Oral - take 2 tablet by ORAL route every 6 hours; 20 tablet; Refills: 0, Product [facility] Selection Permitted Signatures: Dispatcher [employer] Tony Gunn MD MD cha Calderon, Audri, RN RN aa5
--- NOTE | 2021-11-26 08:18 | ER ---
Nurse's Notes [facility] Name: Kelsey Harrell Age: 36 yrs Sex: Female : 1985 Arrival Date: 11/26/2021 Time: 07:22 Bed 19 Private MD: Diagnosis: Other hemorrhoids-sp hemmorhoids surgery Presentation: 11/26 07:30 Chief complaint: Patient states: had hemorrhoidectomy 11/14/[address] Pt states "I feel like I tore something and it started bleeding yesterday, I am also having severe pain down there (to hemorrhoidectomy site) and my said it's possibly infected". Pt also reports nausea. 07:30 Coronavirus screen: At this time, the client does not indicate any symptoms associated aa5 with coronavirus-19. Ebola Screen: No symptoms or risks identified at this time. Initial Sepsis Screen: Does the patient meet any 2 criteria? No. Patient's initial sepsis screen is negative. Does the patient have a suspected source of infection? No. Patient's initial sepsis screen is negative. Risk Assessment: Do you want to hurt yourself or someone else? Patient reports no desire to harm self or others. Onset of symptoms was November 25, 2021. 07:30 Acuity: LENA 3 aa5 07:30 Method Of Arrival: Ambulatory aa5 Historical: - Allergies: 07:30 Latex, Natural Rubber; aa5 - PMHx: 07:30 Anxiety; chronic back pain; chronic bronchitis; diabetes mellitus; neuropathy; Vertigo; aa5 - PSHx: 07:30 "back injections"; Hemorrhoidectomy; aa5 - Social history:: Smoking status: Reported history of juuling and/or vaping. Screenin:45 Abuse screen: Denies threats or abuse. Nutritional screening: No deficits noted. aa5 Tuberculosis screening: No symptoms or risk factors identified. Fall Risk None identified. Assessment: 07:35 General: Appears uncomfortable, Behavior is calm, cooperative. Pain: Complains of pain aa5 in anus Pain currently is 10 out of 10 on a pain scale. Quality of pain is described as sharp, Is episodic. Neuro: Level of Consciousness is awake, alert, obeys commands, Oriented to person, place, time, situation. Cardiovascular: Patient's skin is warm and dry. Respiratory: Airway is patent Respiratory effort is even, unlabored, Respiratory pattern is regular, symmetrical. GI: Abdomen is round non-distended, Bowel sounds present X 4 quads. Abd is soft and non tender X 4 quads. Reports nausea, Patient currently denies vomiting. : No signs and/or symptoms were reported regarding the genitourinary system. EENT: No signs and/or symptoms were reported regarding the EENT system. Derm: Skin is pink, warm \\T\\ dry. Musculoskeletal: Range of motion: intact in all extremities. 08:56 Reassessment: Patient is alert, oriented x 3, equal unlabored respirations, skin aa5 warm/dry/pink. Vital Signs: 07:30 BP 111 / 78; Pulse 76; Resp 16 S; Temp 97.9(TE); Pulse Ox 99% on R/A; Weight 97.07 kg aa5 (R); Height 5 ft. 4 in. (162.56 cm) (R); 07:49 BP 111 / 78; Pulse 77; Resp 18; Temp 97.9; Pulse Ox 100% ; mb7 07:30 Body Mass Index 36.73 (97.07 kg, 162.56 cm) aa5 ED Course: 07:22 Patient arrived in ED. am2 07:23 Tony Morgan MD is Attending Physician. wally 07:30 Arm band placed on Patient placed in an exam room, on a stretcher. aa5 07:46 Triage completed. aa5 07:47 Bed in low position. Call light in reach. Side rails up X 1. Door closed. Noise mb7 minimized. Pillow given. 07:54 Louise Reddy, RN is Primary Nurse. aa5 08:58 No provider procedures requiring assistance completed. Patient did not have IV access aa5 during this emergency room visit. Administered Medications: 08:54 Drug: Cipro (ciprofloxacin) 500 mg Route: PO; aa5 08:55 Follow up: Response: Medication administered at discharge. aa5 Outcome: 08:18 Discharge ordered by . wally 08:56 Discharged to home ambulatory. aa5 08:56 Condition: stable 08:56 Discharge instructions given to patient, Instructed on discharge instructions, follow up and referral plans. medication usage, Demonstrated understanding of instructions, follow-up care, medications, Prescriptions given X 3. 08:58 Patient left the ED. aa5 Signatures: Tony Morgan MD MD cha Calderon, Audri, RN RN aa5 Jess Ferguson am2 Padmini Rashid mb7 Corrections: (The following items were deleted from the chart) 07:46 07:30 Chief complaint: Patient states: had hemorrhoidectomy 11/14/[address] aa5
[2021-11-26] MEDS ORDERED: CIPROFLOXACIN HCL 500 MG TAB ONE (08:20)
[2021-11-26 08:41] LABS: Urine Blood Trace-intact (Negative); Urine Glucose 2+ (Negative); Urine Protein Negative (Negative); Urine Specific Gravity 1.015 (1.005-1.030)
[2021-11-26 09:40] VITALS: BP 111/78; TEMP 97.9
[2021-11-26 09:42] VITALS: O2SAT 100
== END 2021-11-26 08:58 | disposition home or self-care (01) ==
LOC: ER 07:19
DX: K64.8 Other hemorrhoids (principal); Z98.890 Other specified postprocedural states; Z91.040 Latex allergy status; Z91.048 Other nonmedicinal substance allergy status
CPT/HCPCS: 81003; 99283

== ENCOUNTER 2022-04-15 08:55 | Emergency (ER) | payer OTHER ==
--- OUTSIDE RECORDS SUMMARY | 2022-04-15 08:59 | XMS REPORT | Continuity of Care Document ---
:1985 Author Organization [facility] t Address [address] [place] [address] Care Team Providers Name Role Phone Radha Andrade Primary Care Physician RADHA PANG Attending Clinician Unavailable Radha Andrade Attending Clinician Azalia Michel MD Attending Clinician Doctor Unassigned, [address] Attending Clinician Unavailable Payers Payer Name Policy Type Policy Number Effective Date Expiration Date [facility] [id number] 2020 00:00:00 Problems Condition Condition Condition Status [...] Added automatic ally from request for surgery [id number] Sacroiliit Sacroiliit Disease Active Overview : Univers is is 2-11 Formattin ity of 00:00: g of this [place] 00 note Medical might be Branch different from the original. Added automatic ally from request for surgery [id number] Loose Loose Disease Active 2019-08 Overview: Univer s stools stools 0-02 Formattin ity of 00:00: g of this [place] note Medical might be Branch different from the original. Added automatic ally from request for surgery [id number] Blood in Blood in Disease Active 2019-08 Overview: Un joby stool stool 0-02 Formattin ity of 00:00: g of this [place] 00 note Medical might be Branch different from the original. Added automatic ally from request for surgery [id number] Pre-eclamp Pre-eclamp Disease Active U nivers teodora [...] Univers Formattin ity of g of this [place] note Medical might be Branch different from the original. COPD v. asthma Anxiety Anxiety Disease Active Univers ity of [facility] Fatty Fatty Disease Active Univers liver liver ity of [facility] Allergies, Adverse Reactions, Alerts Allergy Allergy Status [...] 2016-12-31 Cigarette Smoker University of use 00:00:00 [facility] Alcohol intake 2022-01-24 2022-01-24 Current University of 00:00:00 00:00:00 non-drinker of [facility] alcohol Branch (finding) Cigarettes smoked 2020-11-26 2020-11-26 Univers ity of current (pack per 00:00:00 00:00:00 ) - Reported Branch Cigarette 2020-11-26 2020-11-26 University of pack-years 00:00:00 00:00:00 [facility] Tobacco use and 2020-11-26 2020-11-26 Smokeless Universit y of exposure 00:00:00 00:00:00 tobacco [facility]-user [facility] 2020-10-13 2020-10-13 vapes Universit y of 00:00:00 00:00:00 [facility] Sex Ass[birth year] At [birth year] Universit y of 00:00:00 00:00:00 [facility] Smoking Status Start Date Stop Date Source Ex-smoker 2020-11-26 00:00:00 2020-11-26 00:00:00 Universi ty of [facility] Medications Ordered Filled Start Stop Current Ordering Indication Dosage Frequency Signature Comments Components Source Medication Medication Date Date Medication? Clinician (SIG) Name Name TRULICITY Yes [id number] INJECT 1 Univers 0.75 mg/0.5 902 SYRINGE ity o f mL PnIj 00:00[place] USLY ONCE Medical A WEEK Branch PROMETHAZIN Yes [id number] TAKE 2 Univers E 12.5 mg 8-15 TABLETS BY ity of tablet 00:00: MOUTH [place] 00 EVERY 6 Medical HOURS Branch NEEDED FOR VERTIGO PROMETHAZIN Yes [id number] TAKE 2 Univers E 12.5 mg 8-15 TABLETS BY ity of tablet 00:00: MOUTH [place] 00 EVERY 6 Medical HOURS Branch NEEDED FOR VERTIGO PROMETHAZIN Yes [id number] TAKE 2 Univers E 12.5 mg 8-15 TABLETS BY ity of tablet 00:00: MOUTH [place] 00 EVERY 6 Medical HOURS Branch NEEDED FOR VERTIGO dulaglutide Yes [id number] .75mg inject 1 Univers (TRULICITY) 8-04 Pen under ity of 0.75 mg/0.5 00:00: [place] mL PnIj 00 weekly. Medical Branch dulaglutide Yes [id number] .75mg inject 1 Univers (TRULICITY) 804 Pen under ity of 0.75 mg/0.5 00:00: [place] mL PnIj 00 weekly. Medical Branch dulaglutide 0 Yes [id number] .75mg inject 1 Univers (TRULICITY) 8 Pen under ity of 0.75 mg/0.5 00:00: [place] mL PnIj 00 weekly. Medical Branch dulaglutide 2021- No [id number] .75mg inject 1 Univers (TRULICITY) 03-16 09-02 Pen under it y of 0.75 mg/0.5 00:00: 00:00 [place] mL PnIj 00 :00 weekly. Medical Branch semaglutide Yes [id number] 2mg inject 2 Univers (OZEMPIC) 2 7-28 mg under ity of mg/dose (8 00:00: the skin [place] mg/3 mL) 00 weekly. Medical [facility] Branch PROMETHAZIN Yes [id number] TAKE 2 Univers E 12.5 mg 6-30 TABLETS BY ity of tablet 00:00: MOUTH [place] 00 EVERY 6 Medical HOURS Branch NEEDED FOR VERTIGO HYDROXYZINE 2021-0 Yes [id number] TAKE 1 Univers 25 mg 6-30 TABLET BY ity of tablet 00:00: MOUTH [place] 00 EVERY 8 Medical HOURS Branch NEEDED FOR ANXIETY PROMETHAZIN 2021-0 Yes [id number] TAKE 2 Univers E 12.5 mg 6-30 TABLETS BY ity of tablet 00:00: MOUTH [place] 00 EVERY 6 Medical HOURS Branch NEEDED FOR VERTIGO HYDROXYZINE 2021-0 Yes [id number] TAKE 1 Univers 25 mg 6-30 TABLET BY ity of tablet 00:00: MOUTH [place] 00 EVERY 8 Medical HOURS Branch NEEDED FOR ANXIETY HYDROXYZINE 2021-0 Yes [id number] TAKE 1 Univers 25 mg 6-30 TABLET BY ity of tablet 00:00: MOUTH [place] 00 EVERY 8 Medical HOURS Branch NEEDED FOR ANXIETY HYDROXYZINE 2021-0 Yes [id number] TAKE 1 Univers 25 mg 6-30 TABLET BY ity of tablet 00:00: MOUTH [place] 00 EVERY 8 Medical HOURS Branch NEEDED FOR ANXIETY HYDROXYZINE 2021-0 Yes [id number] TAKE 1 Univers 25 mg 6-30 TABLET BY ity of tablet 00:00: MOUTH [place] 00 EVERY 8 Medical HOURS Branch NEEDED FOR ANXIETY PROMETHAZIN 2021- No [id number] TAKE 2 Univers E 12.5 mg 6-30 08-15 TABLETS BY ity of tablet 00:00: 00:00 MOUTH [place] 00 :00 EVERY 6 Medical HOURS Branch NEEDED FOR VERTIGO escitalopra Yes [id number] 20mg Take 1 Univers m oxalate 6-06 tablet by ity o f (LEXAPRO) 00:00: mouth [place] 20 mg 00 daily. Medical tablet Branch glyBURIDE 5 Yes [id number] TAKE 1 Univers mg tablet 6-06 TABLET BY ity o f 00:00: MOUTH [place] 00 TWICE Medical DAILY WITH Branch MEALS (NEEDS FOLLOW UP VISIT FOR FURTHER REFILLS) NUVARING Yes [id number] 1{each} Insert 1 Univers (NUVARING) 6-06 Each into ity of 0.12-0.015 00:00: vagina [place] mg/24 hr 00 once every Medic al vaginal month. Branch insert Insert vaginally and leave in place for 3 consecutiv e weeks, then remove for 1 week. gabapentin Yes [id number] 400mg Take 1 Univers 400 mg 6-06 9100 capsule by ity of capsule 00:00: mouth 3 [place] 00 (three) Medical times Branch daily. metformin Yes [id number] TAKE 2 U nivers ER 500 mg 6-06 TABLETS BY ity of 24 hr 00:00: MOUTH ONCE [place] tablet 00 DAILY IN Medical THE Branch MORNING AND 3 ONCE DAILY IN THE EVENING. Needs follow up visit for further refills atorvastati Yes [id number] 20mg Take 1 Univers n 20 mg 6-06 tablet by ity of tablet 00:00: mouth at [place] 00 bedtime. Medical Branch empaglifloz Yes [id number] 25mg Take 1 Univers in 6-06 tablet by ity of (JARDIANCE) 00:00: mouth [place] 25 mg Tab 00 every Medical morning. Branch escitalopra Yes [id number] 20mg Take 1 Univers m oxalate 6-06 tablet by ity o f (LEXAPRO) 00:00: mouth [place] 20 mg 00 daily. Medical tablet Branch glyBURIDE 5 Yes [id number] TAKE 1 Univers mg tablet 6-06 TABLET BY ity o f 00:00: MOUTH [place] 00 TWICE Medical DAILY WITH Branch MEALS (NEEDS FOLLOW UP VISIT FOR FURTHER REFILLS) NUVARING Yes [id number] 1{each} Insert 1 Univers (NUVARING) 6-06 Each into ity of 0.12-0.015 00:00: vagina [place] mg/24 hr 00 once every Medic al vaginal month. Branch insert Insert vaginally and leave in place for 3 consecutiv e weeks, then remove for 1 week. gabapentin Yes [id number] 400mg Take 1 Univers 400 mg 6-06 9100 capsule by ity of capsule 00:00: mouth 3 [place] 00 (three) Medical times Branch daily. metformin Yes [id number] TAKE 2 U nivers ER 500 mg 6-06 TABLETS BY ity of 24 hr 00:00: MOUTH ONCE [place] tablet 00 DAILY IN Medical THE Branch MORNING AND 3 ONCE DAILY IN THE EVENING. Needs follow up visit for further refills atorvastati Yes [id number] 20mg Take 1 Univers n 20 mg 6-06 tablet by ity of tablet 00:00: mouth at [place] 00 bedtime. Medical Branch empaglifloz Yes [id number] 25mg Take 1 Univers in 6-06 tablet by ity of (JARDIANCE) 00:00: mouth [place] 25 mg Tab 00 every Medical morning. Branch escitalopra Yes [id number] 20mg Take 1 Univers m oxalate 6-06 tablet by ity o f (LEXAPRO) 00:00: mouth [place] 20 mg 00 daily. Medical tablet Branch glyBURIDE 5 Yes [id number] TAKE 1 Univers mg tablet 6-06 TABLET BY ity o f 00:00: MOUTH [place] 00 TWICE Medical DAILY WITH Branch MEALS (NEEDS FOLLOW UP VISIT FOR FURTHER REFILLS) NUVARING Yes [id number] 1{each} Insert 1 Univers (NUVARING) 6-06 Each into ity of 0.12-0.015 00:00: vagina [place] mg/24 hr 00 once every Medic al vaginal month. Branch insert Insert vaginally and leave in place for 3 consecutiv e weeks, then remove for 1 week. gabapentin Yes [id number] 400mg Take 1 Univers 400 mg 6-06 9100 capsule by ity of capsule 00:00: mouth 3 [place] 00 (three) Medical times [place] daily. metformin 2021- Yes [id number] TAKE 2 U nivers ER 500 mg 6-06 TABLETS BY ity of 24 hr 00:00: MOUTH ONCE [place] tablet 00 DAILY IN Medical THE [place] MORNING AND 3 ONCE DAILY IN THE EVENING. Needs follow up visit for further refills atorvastati Yes [id number] 20mg Take 1 Univers n 20 mg 6-06 tablet by ity of tablet 00:00: mouth at [place] 00 bedtime. Medical Branch empaglifloz Yes [id number] 25mg Take 1 Univers in 6-06 tablet by ity of (JARDIANCE) 00:00: mouth [place] 25 mg Tab 00 every Medical morning. Branch escitalopra Yes [id number] 20mg Take 1 Univers m oxalate 6-06 tablet by ity o f (LEXAPRO) 00:00: mouth [place] 20 mg 00 daily. Medical tablet Branch glyBURIDE 5 Yes [id number] TAKE 1 Univers mg tablet 6-06 TABLET BY ity o f 00:00: MOUTH [place] 00 TWICE Medical DAILY WITH Branch MEALS (NEEDS FOLLOW UP VISIT FOR FURTHER REFILLS) NUVARING Yes [id number] 1{each} Insert 1 Univers (NUVARING) 6-06 Each into ity of 0.12-0.015 00:00: vagina [place] mg/24 hr 00 once every Medic al vaginal month. Branch insert Insert vaginally and leave in place for 3 consecutiv e weeks, then remove for 1 week. gabapentin Yes [id number] 400mg Take 1 Univers 400 mg 6-06 9100 capsule by ity of capsule 00:00: mouth 3 [place] 00 (three) Medical times [place] daily. metformin 2021- Yes [id number] TAKE 2 U nivers ER 500 mg 6-06 TABLETS BY ity of 24 hr 00:00: MOUTH ONCE [place] tablet 00 DAILY IN [facility] THE [place] MORNING AND 3 ONCE DAILY IN THE EVENING. Needs follow up visit for further refills atorvastati Yes [id number] 20mg Take 1 Univers n 20 mg 6-06 tablet by ity of tablet 00:00: mouth at [place] 00 bedtime. Medical Branch empaglifloz Yes [id number] 25mg Take 1 Univers in 6-06 tablet by ity of (JARDIANCE) 00:00: mouth [place] 25 mg Tab 00 every Medical morning. Branch escitalopra Yes [id number] 20mg Take 1 Univers m oxalate 6-06 tablet by ity o f (LEXAPRO) 00:00: mouth [place] 20 mg 00 daily. Medical tablet Branch glyBURIDE 5 Yes [id number] TAKE 1 Univers mg tablet 6-06 TABLET BY ity o f 00:00: MOUTH [place] 00 TWICE Medical DAILY WITH Branch MEALS (NEEDS FOLLOW UP VISIT FOR FURTHER REFILLS) NUVARING Yes [id number] 1{each} Insert 1 Univers (NUVARING) 6-06 Each into ity of 0.12-0.015 00:00: vagina [place] mg/24 hr 00 once every Medic al vaginal month. Branch insert Insert vaginally and leave in place for 3 consecutiv e weeks, then remove for 1 week. gabapentin Yes [id number] 400mg Take 1 Univers 400 mg 6- 9100 capsule by ity of capsule 00:00: mouth 3 [place] 00 (three) Medical times [place] daily. metformin Yes [id number] TAKE 2 U nivers ER 500 mg 6-06 TABLETS BY ity of 24 hr 00:00: MOUTH ONCE [place] tablet 00 DAILY IN Medical THE [place] MORNING AND 3 ONCE DAILY IN THE EVENING. Needs follow up visit for further refills atorvastati Yes [id number] 20mg Take 1 Univers n 20 mg 6-06 tablet by ity of tablet 00:00: mouth at [place] 00 bedtime. Medical Branch empaglifloz Yes [id number] 25mg Take 1 Univers in 6-06 tablet by ity of (JARDIANCE) 00:00: mouth [place] 25 mg Tab 00 every Medical morning. Branch MELOXICAM Yes [id number] Take 1 Un joby 15 mg 5-25 tablet by ity of tablet 00:00: mouth once [place] 00 daily Medical [place] MELOXICAM 0 Yes [id number] Take 1 Un joby 15 mg 5-25 tablet by ity of tablet 00:00: mouth once [place] 00 daily [facility] MELOXICAM 2022-0 Yes [id number] Take 1 Un joby 15 mg 5-25 tablet by ity of tablet 00:00: mouth once [place] 00 daily Medical Branch MELOXICAM 2-0 Yes [id number] Take 1 Un joby 15 mg 5-25 tablet by ity of tablet 00:00: mouth once [place] 00 daily Medical Branch MELOXICAM 2-0 Yes [id number] Take 1 Un joby 15 mg 5-25 tablet by ity of tablet 00:00: mouth once [place] 00 daily Medical Branch tiZANidine 2021-0 Yes 4mg Take 1 Unive rs 4 mg tablet 4-12 tablet by ity of 00:00: mouth 3 00 (three) Medical times Branch daily as needed (muscle spasm). oxyCODONE 5 2021-0 Yes [id number] 5mg Take 1 Univ ers mg 4-12 tablet by ity of immediate 00:00: mouth [place] release 00 every 6 Medical tablet (six) Branch hours as needed for Pain (scale 7-10). Indication s: acute pain tiZANidine 2021-0 Yes 4mg Take 1 Unive rs 4 mg tablet 4-12 tablet by ity of 00:00: mouth 3 (three) Medical times Branch daily as needed (muscle spasm). oxyCODONE 5 2021-0 Yes [id number] 5mg Take 1 Univ ers mg 4-12 tablet by ity of immediate 00:00: mouth [place] release 00 every 6 Medical tablet (six) Branch hours as needed for Pain (scale 7-10). Indication s: acute pain tiZANidine 2021-0 Yes 4mg Take 1 Unive rs 4 mg tablet 4-12 tablet by ity of 00:00: mouth 3 00 (three) Medical times Branch daily as needed (muscle spasm). oxyCODONE 5 2021-0 Yes [id number] 5mg Take 1 Univ ers mg 4-12 tablet by ity of immediate 00:00: mouth [place] release 00 every 6 Medical tablet (six) Branch hours as needed for Pain (scale 7-10). Indication s: acute pain tiZANidine 2021-0 Yes 4mg Take 1 Unive rs 4 mg tablet 4-12 tablet by ity of 00:00: mouth 3 [place] 00 (three) Medical times Branch daily as needed (muscle spasm). oxyCODONE 5 0 Yes [id number] 5mg Take 1 Univ ers mg 4-12 tablet by ity of immediate 00:00: mouth [place] release 00 every 6 Medical tablet (six) Branch hours as needed for Pain (scale 7-10). Indication s: acute pain tiZANidine Yes 4mg Take 1 Unive rs 4 mg tablet 4-12 tablet by ity of 00:00: mouth 3 [place] 00 (three) Medical times Branch daily as needed (muscle spasm). oxyCODONE 5 0 Yes [id number] 5mg Take 1 Univ ers mg 4-12 tablet by ity of immediate 00:00: mouth [place] release 00 every 6 Medical tablet (six) Branch hours as needed for Pain (scale 7-10). Indication s: acute pain ONDANSETRON Yes [id number] DISSOLVE 1 Univers 4 mg 2-15 TABLET IN ity of disintegrat 00:00: MOUTH [place] ing tablet 00 EVERY 8 Medica l HOURS Branch NEEDED FOR NAUSEA AND VOMITING FOR UP TO 4 DAYS ONDANSETRON Yes [id number] DISSOLVE 1 Univers 4 mg 2-15 TABLET IN ity of disintegrat 00:00: MOUTH [place] ing tablet 00 EVERY 8 Medica l HOURS Branch NEEDED FOR NAUSEA AND VOMITING FOR UP TO 4 DAYS ONDANSETRON Yes [id number] DISSOLVE 1 Univers 4 mg 2-15 TABLET IN ity of disintegrat 00:00: MOUTH [place] ing tablet 00 EVERY 8 Medica l HOURS Branch NEEDED FOR NAUSEA AND VOMITING FOR UP TO 4 DAYS ONDANSETRON Yes [id number] DISSOLVE 1 Univers 4 mg 2-15 TABLET IN ity of disintegrat 00:00: MOUTH [place] ing tablet 00 EVERY 8 Medica l HOURS Branch NEEDED FOR NAUSEA AND VOMITING FOR UP TO 4 DAYS ONDANSETRON Yes [id number] DISSOLVE 1 Univers 4 mg 2-15 TABLET IN ity of disintegrat 00:00: MOUTH [place] ing tablet 00 EVERY 8 Medica l HOURS Branch NEEDED FOR NAUSEA AND VOMITING FOR UP TO 4 DAYS insulin NPH Yes [id number] INJECT 20 Univers (NOVOLIN N 1-25 UNITS ity of NPH U-100 00:00: SUBCUTANEO [place] INSULIN) 00 USLY ONCE Medica l 100 unit/mL DAILY WITH Br anch injection BREAKFAST insulin NPH Yes [id number] INJECT 20 Univers (NOVOLIN N 1-25 UNITS ity of NPH U-100 00:00: [place]BCUTANEO [place] INSULIN) 00 USLY ONCE Medica l 100 unit/mL DAILY WITH Br anch injection BREAKFAST insulin NPH Yes [id number] INJECT 20 Univers (NOVOLIN N 1-25 UNITS ity of NPH U-100 00:00: SUBCUTANEO [place] INSULIN) 00 USLY ONCE Medica l 100 unit/mL DAILY WITH Br anch injection BREAKFAST insulin NPH Yes [id number] INJECT 20 Univers (NOVOLIN N 1-25 UNITS ity of NPH U-100 00:00: [place]BCUT[place]O [place] INSULIN) 00 USLY ONCE Medica l 100 unit/mL DAILY WITH Br anch injection BREAKFAST insulin NPH Yes [id number] INJECT 20 Univers (NOVOLIN N 1-25 UNITS ity of NPH U-100 00:00: [place]BC[place]O [place] INSULIN) 00 USLY ONCE Medica l 100 unit/mL DAILY WITH Br anch injection BREAKFAST NOVOLIN R Yes [id number] INJECT 15 Univers REGULAR 1-21 UNITS ity of U-100 00:00: SUBCUTANEO [place] INSULN 100 00 USLY THREE Med ical unit/mL TIMES Branch solution DAILY BEFORE MEAL(S) NOVOLIN R 2021- Yes [id number] INJECT 15 Univers REGULAR 1-21 UNITS ity of U-100 00:00: SUBCUTANEO [place] INSULN 100 00 USLY THREE Med ical unit/mL TIMES Branch solution DAILY BEFORE MEAL(S) NOVOLIN R 2021- Yes [id number] INJECT 15 Univers REGULAR 1-21 UNITS ity of U-100 00:00: SUBCUTANEO [place] INSULN 100 00 USLY THREE Med ical unit/mL TIMES Branch solution DAILY BEFORE MEAL(S) NOVOLIN R 202- Yes [id number] INJECT 15 Univers REGULAR 1-21 UNITS ity of U-100 00:00: SUBCUTANEO [place] INSULN 100 00 USLY THREE Med ical unit/mL TIMES Branch solution DAILY BEFORE MEAL(S) NOVOLIN R 202- Yes [id number] INJECT 15 Univers REGULAR 1-21 UNITS ity of U-100 00:00: SUBCUTANEO [place] INSULN 100 00 USLY THREE Med ical unit/mL TIMES Branch solution DAILY BEFORE MEAL(S) MONTELUKAST Yes [id number] Take 1 Univers 10 mg 1-03 tablet by ity of tablet 00:00: mouth once [place] Medical Branch MONTELUKAST Yes [id number] Take 1 Univers 10 mg 1-03 tablet by ity of tablet 00:00: mouth once [place] daily Medical Branch MONTELUKAST Yes [id number] Take 1 Univers 10 mg 1-03 tablet by ity of tablet 00:00: mouth once [place] daily Medical Branch MONTELUKAST Yes [id number] Take 1 Univers 10 mg 1-03 tablet by ity of tablet 00:00: mouth once [place] Medical Branch MONTELUKAST Yes [id number] Take 1 Univers 10 mg 1-03 tablet by ity of tablet 00:00: mouth once [place] Medical Branch Guaifenesin 2020-08 Yes [id number] 5 ml po q Univers 200 mg/5 mL 1-13 6 h prn ity o f Liqd 00:00: cough Medical Branch Guaifenesin 2020-08 Yes [id number] 5 ml po q Univers 200 mg/5 mL 1-13 6 h prn ity o f Liqd 00:00: cough Medical Branch Guaifenesin 2020-08 Yes [id number] 5 ml po q Univers 200 mg/5 mL 1-13 6 h prn ity o f Liqd 00:00: cough Medical Branch Guaifenesin 2020-08 Yes [id number] 5 ml po q Univers 200 mg/5 mL 1-13 6 h prn ity o f Liqd 00:00: cough Medical Branch Guaifenesin 2020-08 Yes [id number] 5 ml po q Univers 200 mg/5 mL 1-13 6 h prn ity o f Liqd 00:00: cough Medical Branch mupirocin 2 2020-08 Yes [id number] Apply to Univers % ointment 0-25 area(s) 3 ity of 00:00: (three) [place] times Medical daily. Branch mupirocin 2 2020-08 Yes [id number] Apply to Univers % ointment 0-25 area(s) 3 ity of 00:00: (three) [place] 00 times Medical daily. Branch mupirocin 2 2020-08 Yes [id number] Apply to Univers % ointment 0-25 area(s) 3 ity of 00:00: (three) [place] 00 times Medical daily. Branch mupirocin 2 2020-08 Yes [id number] Apply to Univers % ointment 0-25 area(s) 3 ity of 00:00: (three) [place] 00 times Medical daily. Branch mupirocin 2 2020-08 Yes [id number] Apply to Univers % ointment 0-25 area(s) 3 ity of 00:00: (three) [place] 00 times Medical daily. Branch albuterol Yes [id number] 2{puff} Inhale 2 Univers 90 7-07 Puffs ity of mcg/actuati 00:00: every 6 [place] as on inhaler 00 (six) Medical hours as Branch needed for Wheezing or Shortness of Breath. albuterol Yes [id number] 2{puff} Inhale 2 Univers 90 7-07 Puffs ity of mcg/actuati 00:00: every 6 [place] as on inhaler 00 (six) Medical hours as Branch needed for Wheezing or Shortness of Breath. albuterol Yes [id number] 2{puff} Inhale 2 Univers 90 7-07 Puffs ity of mcg/actuati 00:00: every 6 [place] on inhaler 00 (six) Medical hours as Branch needed for Wheezing or Shortness of Breath. albuterol Yes [id number] 2{puff} Inhale 2 Univers 90 7-07 Puffs ity of mcg/actuati 00:00: every 6 [place] on inhaler 00 (six) Medical hours as Branch needed for Wheezing or Shortness of Breath. albuterol Yes [id number] 2{puff} Inhale 2 Univers 90 7-07 Puffs ity of mcg/actuati 00:00: every 6 [place] on inhaler 00 (six) Medical hours as Branch needed for Wheezing or Shortness of Breath. hydrocortis Yes [id number] 1{appli Insert 1 Univers one-pramovi 5-03 cator} Applicator ity of ne rectal 00:00: into [place] foam 00 rectum 2 Medical (two) Branch times daily. hydrocortis Yes [id number] 1{appli Insert 1 Univers one-pramovi 5-03 cator} Applicator ity of ne rectal 00:00: into [place] foam 00 rectum 2 Medical (two) Branch times daily. hydrocortis Yes [id number] 1{appli Insert 1 Univers one-pramovi 5-03 cator} Applicator ity of ne rectal 00:00: into [place] foam 00 rectum 2 Medical (two) Branch times daily. hydrocortis Yes [id number] 1{appli Insert 1 Univers one-pramovi 5-03 cator} Applicator ity of ne rectal 00:00: into [place] foam 00 rectum 2 Medical (two) Branch times daily. hydrocortis Yes [id number] 1{appli Insert 1 Univers one-pramovi 5-03 cator} Applicator ity of ne rectal 00:00: into [place] foam 00 rectum 2 Medical (two) Branch times daily. Insulin 2020- Yes Use as Univers Syringe-Nee [...] Immunization Date Status Comments [facility] Immunization Name Name Influenza Virus 2021-07-01 Completed Universit y of Vaccine Quad .5 mL 00:00:00 [place] Medical IM 6+ MO Branch Influenza Virus 2021-07-01 Completed Universit y of Vaccine [place] .5 mL 00:00:00 [place] Medical IM 6+ MO Branch Influenza Virus 2021-07-01 Completed Universit y of Vaccine [place] .5 mL 00:00:00 [place] Medical IM 6+ MO Branch Influenza Virus 2021-07-01 Completed Universit y of Vaccine [place] .5 mL 00:00:00 [place] Medical IM 6+ MO Branch Influenza Virus 2021-07-01 Completed Universit y of Vaccine [place] .5 mL 00:00:00 [place] Medical IM 6+ MO Branch Pneumococcal 2020-07-13 [...] 2020-07-13 Completed University o f Polysaccharide, 00:00:00 [place] Med ical PPSV23 (PNEUMOVAX) Branch Influenza Virus 2020-05-13 Completed Universit y of Vaccine [place] .5 mL 00:00:00 [place] Medical IM 6+ MO Branch Influenza Virus 2020-05-13 Completed Universit y of Vaccine [place] .5 mL 00:00:00 [place] Medical 6+ MO Branch Influenza Virus 2020-05-13 Completed Universit y of Vaccine [place] .5 mL 00:00:00 [place] Medical IM 6+ MO Branch Influenza Virus 2020-05-13 Completed Universit y of Vaccine [place] .5 mL 00:00:00 [place] Medical IM 6+ MO Branch Influenza Virus 2020-05-13 Completed Universit y of Vaccine [place] .5 mL 00:00:00 [place] Medical IM 6+ MO Branch Influenza Virus 2017-05-29 Completed Universit y of Vaccine [place] IM 3+ 00:00:00 [facility] Influenza Virus 2017-05-29 Completed Universit y of Vaccine [place] IM 3+ 00:00:00 [facility] Influenza Virus 2017-05-29 Completed Universit y of Vaccine [place] IM 3+ 00:00:00 [facility] Influenza Virus 2017-05-29 Completed Universit y of Vaccine [place] IM 3+ 00:00:00 [facility] Influenza Virus 2017-05-29 Completed Universit y of Vaccine [place] IM 3+ 00:00:00 [facility] MMR 2017-04-29 Completed University of 00:00:00 [facility] MMR 2017-04-29 Completed University of 00:00:00 [facility] MMR 2017-04-29 Completed University of 00:00:00 [facility] MMR 2017-04-29 Completed University of 00:00:00 [facility] MMR 2017-04-29 Completed University of 00:00:00 [facility] TDAP 2017-02-28 Completed University of 00:00:00 [facility] TDAP 2017-02-28 Completed University of 00:00:00 [facility] TDAP 2017-02-28 Completed University of 00:00:00 [facility] TDAP 2017-02-28 Completed University of 00:00:00 [facility] TDAP 2017-02-28 Completed University of 00:00:00 [facility] TDAP 2012-08-26 Completed University of 00:00:00 [facility] TDAP 2012-08-26 Completed University of 00:00:00 [facility] TDAP 2012-08-26 Completed University of 00:00:00 [facility] TDAP 2012-08-26 Completed University of 00:00:00 [facility] TDAP 2012-08-26 Completed University of 00:00:00 [facility] Procedures This patient has no known procedures. Encounters Start End Encounter Admission Attending Care Care Encounter Source Date/Time Date/Time Type Type Clinicians Facility Department ID 2022-04-18 2022-04-18 Outpatient Annalee PANG NCTANYA [facility] [id number] Univers 10:00:00 10:00:00 RADHA guzmán of [facility] 2022-04-13 2022-04-13 Solis Pang NCTANYA [id number] Univers 00:00:00 00:00:00 Radha [place] [id number] y of MEDICINE [id number] [facility] as CLINIC - [phone] [address] 2022-03-26 2022-03-26 Solis Pang NCTANYA [id number] Univers 00:00:00 00:00:00 Radha FAMILY [id number] it y of MEDICINE [id number] [place] as CLINIC - [phone] [address] 2022-03-26 2022-03-26 Refjo-ann Michel [facility] [id number] Univers 00:00:00 00:00:00 [facility] [id number] it y of CANCER [id number] [place] [facility] - [phone] [place] [id number] [address] 2022-03-10 2022-03-10 Telephone Bird [facility] [id number] Univers 00:00:00 00:00:00 Radha FAMILY [id number] it y of MEDICINE [id number] [place] [facility]IN[facility] - [phone] [address] 2022-02-28 2022-02-28 Patient Doctor [facility] [id number] Univers 00:00:00 00:00:00 Secure Msg Unassigned, FAMILY [id number] MEDICINE [id number] [place] as [facility]INIC - [phone] [address] Results This patient has no known results.
--- NOTE | 2022-04-15 10:43 | EDPHYS ---
Physician Documentation [facility] Name: Kelsey Harrell Age: 37 yrs Sex: Female : 1985 Arrival Date: 04/15/2022 Time: 08:59 Bed 10 Private MD: ED Physician Clint Vasquez HPI: 04/15 09:30 This 37 yrs old Female presents to ER via Unassigned with complaints of Ear snw Pain, Runny Nose, Sore Throat. 09:30 The patient presents with pain, that is acute. The complaints affect the right ear and snw left ear. Onset: The symptoms/episode began/occurred gradually, 2 day(s) ago, and became persistent. Modifying factors: The symptoms are alleviated by nothing. Associated signs and symptoms: Pertinent positives: sore throat, rhinorrhea, lightheadedness. Severity of symptoms: At their worst the symptoms were moderate. It is unknown whether or not the patient has had similar symptoms in the past. The patient has not recently seen a physician. Daughter with similar s/s x 1 week. Historical: ROS: 09:29 Eyes: Negative for injury, pain, redness, and discharge. snw 09:29 Neck: Negative for injury, pain, and swelling, Cardiovascular: Negative for chest pain, palpitations, and edema, Respiratory: Negative for shortness of breath, cough, wheezing, and pleuritic chest pain, Abdomen/GI: Negative for abdominal pain, nausea, vomiting, diarrhea, and constipation, Back: Negative for injury and pain, : Negative for injury, bleeding, discharge, and swelling, MS/Extremity: Negative for injury and deformity, Skin: Negative for injury, rash, and discoloration. 09:29 Psych: Negative for depression, anxiety, suicide ideation, homicidal ideation, and hallucinations. 09:29 Constitutional: Positive for body aches, fatigue, malaise. 09:29 ENT: Positive for ear pain, nasal discharge, sinus congestion, sore throat. 09:29 Neuro: Positive for headache. Exam: 09:28 Constitutional: This is a well developed, well nourished patient who is awake, alert, snw and in no acute distress. Head/Face: Normocephalic, atraumatic. Eyes: Pupils equal round and reactive to light, extra-ocular motions intact. Lids and lashes normal. Conjunctiva and sclera are non-icteric and not injected. Cornea within normal limits. Periorbital areas with no swelling, redness, or edema. 09:28 Neck: Trachea midline, no thyromegaly or masses palpated, and no cervical lymphadenopathy. Supple, full range of motion without nuchal rigidity, or vertebral point tenderness. No Meningismus. Chest/axilla: Normal chest wall appearance and motion. Nontender with no deformity. No lesions are appreciated. Cardiovascular: Regular rate and rhythm with a normal S1 and S2. No gallops, murmurs, or rubs. Normal PMI, no JVD. No pulse deficits. Respiratory: Lungs have equal breath sounds bilaterally, clear to auscultation and percussion. No rales, rhonchi or wheezes noted. No increased work of breathing, no retractions or nasal flaring. Abdomen/GI: Soft, non-tender, with normal bowel sounds. No distension or tympany. No guarding or rebound. No evidence of tenderness throughout. Back: No spinal tenderness. No costovertebral tenderness. Full range of motion. Skin: Warm, dry with normal turgor. Normal color with no rashes, no lesions, and no evidence of cellulitis. MS/ Extremity: Pulses equal, no cyanosis. Neurovascular intact. Full, normal range of motion. Neuro: Awake and alert, GCS 15, oriented to person, place, time, and situation. Cranial nerves II-XII grossly intact. Motor strength 5/5 in all extremities. Sensory grossly intact. Cerebellar exam normal. Normal gait. Psych: Awake, alert, with orientation to person, place and time. Behavior, mood, and affect are within normal limits. 09:28 ENT: Ear canal(s): erythema, of the right canal, TM's: erythema, on the left, Nose: is normal, Mouth: is normal, Posterior pharynx: erythema, that is mild. Vital Signs: 09:25 BP 138 / 88; Pulse 95; Resp 20; Temp 98.5; Pulse Ox 97% on R/A; em1 MDM: 09:16 Patient medically screened. snw 10:40 Data reviewed: vital signs, nurses notes. Data interpreted: Pulse oximetry: on room air snw is 97 %. Interpretation: normal. Counseling: I had a detailed discussion with the patient and/or guardian regarding: the historical points, exam findings, and any diagnostic results supporting the discharge/admit diagnosis, lab results, the need for outpatient follow up, to return to the emergency department if symptoms worsen or persist or if there are any questions or concerns that arise at home. Special discussion: Based on the history and exam findings, there is no indication for further emergent testing or inpatient evaluation. I discussed with the patient/guardian the need to see the primary care provider for further evaluation of the symptoms. 04/15 09:28 Order name: Strep; Complete Time: 10:29 snw 04/15 09:28 Order name: Flu; Complete Time: 10:29 snw 04/15 09:28 Order name: SARS-COV-2 RT PCR (Document "Date of Onset" if Symptomatic); Complete Time: snw :04/15 10:27 Order name: Throat Culture EDMS Administered Medications: No medications were administered Disposition: 12:08 Co-signature as Attending Physician, Clint Vasquez MD I agree with the assessment and kdr plan of care. Disposition Summary: 04/15/22 10:42 Discharge Ordered Location: Home snw Condition: Stable snw Diagnosis - Influenza B snw - Acute serous otitis media, unspecified ear snw Followup: snw - With: Emergency Department - When: As needed - Reason: Worsening of condition Followup: snw - With: Private Physician - When: 2 - 3 days - Reason: Recheck today's complaints, Continuance of care, Re-evaluation by your physician Discharge Instructions: - Discharge Summary Sheet snw - Influenza, Adult snw - COVID-19: Quarantine vs. Isolation - CDC snw Forms: - Medication Reconciliation Form snw - Thank You Letter snw - Antibiotic Education snw - Prescription Opioid Use snw Prescriptions: - benzonatate 200 mg Oral Capsule - take 1 capsule by ORAL route 3 times per day as needed; 42 capsule; Refills: 0, snw Product Selection Permitted - Zithromax 500 mg Oral Tablet - take 1 tablet by ORAL route once daily for 3 days; 3 tablet; Refills: 0, snw Product Selection Permitted Signatures: Dispatcher [facility] Clint Vasquez MD MD kdr Waters, Shelly, OPERATOR/ASSISTANT FOREMAN-C OPERATOR/ASSISTANT FOREMAN-Csnw Corrections: (The following items were deleted from the chart) 09:32 09: PMHx: diabetes mellitus; snw snw 09:31 PMHx: chronic bronchitis; snw w : PMHx: Anxiety; snw w : PMHx: chronic back pain; snw w : PMHx: neuropathy; snw w : PMHx: Vertigo; snw w : PSHx: "back injections"; snw w : PSHx: Hemorrhoidectomy; snw snw
--- NOTE | 2022-04-15 10:43 | ER ---
Nurse's Notes [facility] Name: Kelsey Harrell Age: 37 yrs Sex: Female : 1985 Arrival Date: 04/15/2022 Time: 08:59 Bed 10 Private MD: Diagnosis: Influenza B;Acute serous otitis media, unspecified ear Presentation: 04/15 09:52 Acuity: LENA 4 iw 09:52 Chief complaint: Patient states: sore throat, runny nose, ear pain. Coronavirus screen: iw Client presents with at least one sign or symptom that may indicate coronavirus-19. Ebola Screen: Patient negative for fever greater than or equal to 101.5 degrees Fahrenheit, and additional compatible Ebola Virus Disease symptoms Patient denies travel to an Ebola-affected area in the 21 days before illness onset. No symptoms or risks identified at this time. Initial Sepsis Screen: Does the patient meet any 2 criteria? No. Patient's initial sepsis screen is negative. Does the patient have a suspected source of infection? No. Patient's initial sepsis screen is negative. Risk Assessment: Do you want to hurt yourself or someone else? Patient reports no desire to harm self or others. Onset of symptoms. 09:52 Method Of Arrival: Ambulatory iw Historical: Vital Signs: 09:25 BP 138 / 88; Pulse 95; Resp 20; Temp 98.5; Pulse Ox 97% on R/A; em1 ED Course: 08:59 Patient arrived in ED. as 09:12 Me[facility] Huffman [facility]-C [facility] snw 09:12 Clint Vasquez MD is Attending Physician. snw 09:13 Tami Escalante, RN is Primary Nurse. iw 09:25 Arm band placed on. iw 09:52 Triage completed. iw 10:12 COVID swab sent to lab. Flu and/or RSV swab sent to lab. Strep swab sent to lab. em1 Administered Medications: No medications were administered Outcome: 10:42 Discharge ordered by . snw 12:03 Patient left the ED. iw Signatures: Meagan Huffman FNP-C OUTREACH COORDINATOR-[place] Destiney Zelaya as Tami Escalante RN RN iw Sudhir Zelaya em1 Corrections: (The following items were deleted from the chart) 09:32 09:31 PMHx: diabetes mellitus; snw snw 09:31 PMHx: chronic bronchitis; snw snw 09:31 PMHx: Anxiety; snw snw 09:31 PMHx: chronic back pain; snw w 09:31 PMHx: neuropathy; snw sn 09:31 PMHx: Vertigo; sn sn 09:31 PSHx: "back injections"; sn sn 09:31 PSHx: Hemorrhoidectomy; sn sn 10:41 09:25 Pulse 95bpm; Resp 20bpm; Pulse Ox 97% RA; Temp 98.5F; em1 em1 18:25 09:15 Arm band placed on iw iw
[2022-04-15 12:08] VITALS: BP 138/88; TEMP 98.5; O2SAT 97
== END 2022-04-15 12:03 | disposition home or self-care (01) ==
LOC: ER 08:55
DX: J10.1 Influenza due to other identified influenza virus with other respiratory manifestations (principal); H65.00 Acute serous otitis media, unspecified ear; Z20.822 Contact with and (suspected) exposure to COVID-19
CPT/HCPCS: 87070; 87081; 87804 ×2; 99282; U0003

== ENCOUNTER 2022-09-19 08:40 | Emergency (ER) | payer OTHER ==
--- OUTSIDE RECORDS SUMMARY | 2022-09-19 09:03 | XMS REPORT | Continuity of Care Document ---
:1985 Author Organization [facility] t Address [address] [place] [address] Care Team Providers Name Role Phone Radha Andrade Primary Care Physician AZALIA MICHEL Attending Clinician Unavailable CURTIS MORLEY Attending Clinician Unavailable NORBERT DIAZ Attending Clinician Unavailable NORBERT DIAZ Attending Clinician Unavailable EZ PALACIO Attending Clinician Unavailable EZ PALACIO Attending Clinician Unavailable RICHA DOMINGUEZ Attending Clinician Unavailable RICHA DOMINGUEZ Attending Clinician Unavailable BETH PHAM Attending Clinician Unavailable CAROL SIERRA Attending Clinician Unavailable OMID CORTEZ Attending Clinician Unavailable Lnaa Scott RN Attending Clinician Unavailable Beth Rodriguez Attending Clinician Curtis Morley MD Attending Clinician Argentina Looney MD Attending Clinician ARGENTINA LOONEY Attending Clinician Unavailable Doctor Unassigned, [place] Attending Clinician Unavailable Lab, Ang - Db Attending Clinician Unavailable Donell CROWDER Bia Attending Clinician Radha Andrade Attending Clinician SKYLER FERRARI Attending Clinician Unavailable SKYLER FERRARI Attending Clinician Unavailable Skyler Ferrari MD Attending Clinician CAMILO CORLEY Attending Clinician Unavailable Camilo Corley MD [place] Attending Clinician [phone] Lab, Gal c [address] Attending Clinician Unavailable RADHA TRINIDAD Attending Clinician Unavailable Azalia Michel MD Attending Clinician Olu CROWDER, Ashley Attending Clinician Catalina Mendez PA-C Attending Clinician [phone] Kristi CHONG, Byron Ward Attending Clinician Only, Adc Test Attending Clinician Unavailable Luna CROWDER, [place] Attending Clinician Wade CHONG, Rene Mar Attending Clinician SAMINA BOOKER Attending Clinician Unavailable Samina Martinez Attending Clinician Unknown, Attending Attending Clinician Unavailable Nurse, Gal Adult Urgent Attending Clinician Unavailable Therapy, Clc Covid Infusion Attending Clinician Unavailable Tejinder Valles MD Attending Clinician TEJINDER VALLES Attending Clinician Unavailable ASHLEY RAINES Attending Clinician Unavailable Alicja CROWDER, Ever Attending Clinician [phone] UNKNOWN, ATTENDING Attending Clinician Unavailable Theo CHONG, Barrington Porter Attending Clinician CATALINA MENDEZ Attending Clinician Unavailable HEATH JOHNSON Attending Clinician Unavailable Biju CHONG, Brady Moreira Attending Clinician Amando De La Rosa MD Attending Clinician Elena LAWLER, Norma Burch Attending Clinician Unavailable [place] Attending Clinician Unavailable Mic-Lab Attending Clinician Unavailable Care, Gal Adult Urgent Attending Clinician Unavailable Emeli CROWDER, Cait Attending Clinician Vineet CROWDER, Monika Vogel Attending Clinician [phone] EMILY OBRIEN Attending Clinician [facility]available [facility]ending Clinician Unavailable Jenny Avila MD Attending Clinician Taurus Guadalupe MD Attending Clinician TAURUS GUADALUPE Attending Clinician Unavailable [place]os Giron DO Attending Clinician Only, Pcp Test Attending Clinician Unavailable Emily Fay Attending Clinician Aiyana Bojorquez Attending Clinician Chan Souza MD Attending Clinician [facility] Attending Clinician Unavailable Micheline Mixon MD Attending Clinician MICHELINE MIXON Attending Clinician Unavailable AIYANA HOLLINGSWORTH Attending Clinician Unavailable Andrea Galeano BODYWORK THERAPIST, Maki A Attending Clinician Unavailerna Kang MD, Brady Umanzor Attending Clinician Bettie RN, Bessie English Attending Clinician Unavailable Fellow, Cardiology Attending Clinician Unavailable Justin CROWDER, Octavio Vidal Attending Clinician OCTAVIO ANDERSON Attending Clinician Unavailable Cody TELLEZ, Rain Attending Clinician Unavailable BRADY KANG Attending Clinician Unavailable Lucille Banks LPC Attending Clinician LUCILLE BANKS Attending Clinician Unavailable Selena Ace MD Attending Clinician Seb RN, Tony Attending Clinician Unavailable Keri Yee MD Attending Clinician Norbert Diaz MD Attending Clinician Pcp, Patient Does Not Have A Attending Clinician [phone] Gordy Corbett MD Attending Clinician GORDY CORBETT Attending Clinician Unavailable Elder Tena MD Attending Clinician ELDER TENA Attending Clinician Unavailable Odilia Mejia MD Attending Clinician ODILIA MEJIA Attending Clinician Unavailable Elaina Live MD Attending Clinician APPLE BROWN Attending Clinician Unavailable Bill Luque Attending Clinician Unavailable Kami Medina Attending Clinician Unavailable Radha Wilson Attending Clinician Unavailable Reyes Martinez Attending Clinician Unavailable Genesis Bustamante Attending Clinician Unavailable AZALIA MICHEL Admitting Clinician Unavailable CURTIS MORLEY Admitting Clinician Unavailable NORBERT DIAZ Admitting Clinician Unavailable SKYLER FERRARI Admitting Clinician Unavailable EZ PALACIO Admitting Clinician Unavailable CAMILO CORLEY Admitting Clinician Unavailable Marilu CHONG, Azalia Admitting Clinician uCrtis Morley MD Admitting Clinician Norbert Diaz MD Admitting Clinician APPLE BROWN Admitting Clinician Unavailable Payers Payer Name Policy Type Policy Number Effective Date Expiration Date Charlotte espino [facility] [id number] 2020 00:00:00 Problems Condition Condition Condition Status Onset Resolution Last Treating Co mments Source Name Details Category Date Date Treatment Clinician Date 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 Patient Patient Disease Active [facility] desires desires 1-03 [place] Hirsutism Hirsutism Disease Active 2021-08 Uni vers 2-21 ity of 00:00: Medical Branch Encounter Encounter Disease Active 2021-08 Uni vers for for 2-05 [place] other 00 Med[place] nirmal metabolic metabolic Bran ch disorders disorders Vaginal Vaginal Disease Active 2021-08 Univers discharge discharge 2-05 ity of 00:00: Medical Branch Missed Missed Disease Active 2021-08 Univers menses menses 2-05 ity of 00:00: Medical Branch Pain Pain Disease Active 2021-08 Univers pelvic pelvic 2-05 ity of 00:00: 00 Medical Branch History of History of Disease Active 2021-08 U nivers PCOS PCOS 2-05 ity of 00:00: Medical Branch Irregular Irregular Disease Active 2021-08 Uni vers menstrual menstrual 2-05 ity of cycle cycle 00:00: 00 Medical Branch External External Disease Active Unive rs hemorrhoid hemorrhoid 5-17 it y of s s 00:00: Medical Branch Grade II Grade II Disease Active Overview: Un joby internal internal 5-14 Formattin ity of hemorrhoid hemorrhoid 00:00: g of this [place] s s 00 note Medical might be Branch different from the original. Added automatic ally from request for surgery [id number] Sacroiliit Sacroiliit Disease Active Overview : Univers is is 2-11 Formattin ity of 00:00: g of this [place] 00 note Medical might be Branch different from the original. Added automatic ally from request for surgery [id number] Loose Loose Disease Active 2019-08 Overview: Univer s stools stools 0-02 Formattin ity of 00:00: g of this [place] 00 note Medical might be Branch different from the original. Added automatic ally from request for surgery [id number] Blood in Blood in Disease Active 2019-08 Overview: Un joby stool stool 0-02 Formattin ity of 00:00: g of this [place] 00 note Medical might be Branch different from the original. Added automatic ally from request for surgery [id number] Pre-eclamp Pre-eclamp Disease Active U nivers teodora teodora 9-12 [place] of affecting [place] , [place] Me [place]ical antepartum antepartum Br anch Latex Latex Disease Active Univers allergy allergy 9-05 ity of 00:00: [place] 00 Medical Branch Latex Latex Disease Active Univers allergy allergy 9-05 ity of 00:00: [place] 00 Medical Branch Sciatic Sciatic Disease Active Univers nerve nerve 7-01 ity of disease, disease, 00:00: [place] right right 00 Medical Branch Modified Modified Disease Active Unive rs White White 5-30 ity of class B class B 00:00: [place] pregestati pregestati 00 Me dical onal onal Branch diabetes diabetes mellitus mellitus BMI BMI Disease Active Univers 37.0-37.9, 37.0-37.9, 5-21 it y of adult adult 00:00: [place] 00 Medical Branch Chronic Chronic Disease Active Univers bilateral bilateral 8-21 ity of low back low back 00:00: [place] pain pain 00 Medical without without Branch sciatica sciatica Bronchitis Bronchitis Disease Active Overview : Univers Formattin ity of g of this [place] note Medical might be Branch different from the original. COPD v. asthma Anxiety Anxiety Disease Active Univers ity of [place] [facility] Fatty Fatty Disease Active Univers liver liver ity of [place] [facility] Allergies, Adverse Reactions, Alerts Allergy Allergy Status Severity Reaction(s) Onset Inactive Treating Comm ents Source Name Type Date Date Clinician Latex Propensi Active Rash Univers ty to 12-06 ity of adverse 00:00: [place] reaction 00 Medical Branch LATEX DRUG Active Rash Univers INGREDI 12-06 ity of 00:00: [place] 00 Medical Branch Social History Social Habit Start Date Stop Date Quantity Comments Source History of tobacco 2016-12-31 Cigarette Smoker University of use 00:00:00 [facility] Alcohol intake 2022-09-18 2022-09-18 Current University of 00:00:00 00:00:00 non-drinker of [facility] alcohol [place] (finding) Exposure to 2022-09-05 2022-09-15 Not sure University of SARS-CoV-2 (event) 00:00:00 09:31:00 [place] [facility] Cigarettes smoked 2022-05-16 2022-05-16 Univers ity of current (pack per 00:00:00 00:00:00 [facility] ) - Reported Branch Cigarette 2022-05-16 2022-05-16 University of pack-years 00:00:00 00:00:00 [facility] Tobacco use and 2022-05-16 2022-05-16 Smokeless Universit y of exposure 00:00:00 00:00:00 tobacco non-user [facility] Comment 2022-05-16 2022-05-16 vapes Universit y of 00:00:00 00:00:00 [place] [facility] Sex [birth year] At [birth year] Universit y of 00:00:00 00:00:00 [place] [facility] Smoking Status Start Date Stop Date Source Ex-smoker 2022-05-16 00:00:00 2022-05-16 00:00:00 Universi ty of [place] [facility] Medications Ordered Filled Start Stop Current Ordering Indication Dosage Frequency Signature Comments Components Source Medication Medication Date Date Medication? Clinician (SIG) Name Name meloxicam Yes 15mg Take 1 Univer s 15 mg 2-03 tablet by ity of tablet 00:00: mouth in [place] 00 the Medical morning. Branch meloxicam Yes 15mg Take 1 Univer s 15 mg 2-03 tablet by ity of tablet 00:00: mouth in [place] the morning. Branch meloxicam 2022-0 Yes [id number] 15mg Take 1 U nivers 15 mg 2-03 tablet by ity of tablet 00:00: mouth in [place] the morning. Branch meloxicam 2022-0 Yes [id number] 15mg Take 1 U nivers 15 mg 2-03 tablet by ity of tablet 00:00: mouth in [place] the morning. Branch meloxicam 2022-0 Yes [id number] 15mg Take 1 U nivers 15 mg 2-03 tablet by ity of tablet 00:00: mouth in [place] the morning. Branch meloxicam 2022-0 Yes [id number] 15mg Take 1 U nivers 15 mg 2-03 tablet by ity of tablet 00:00: mouth in [place] the morning. Branch semaglutide 2022-0 Yes [id number] 1mg inject 1 Univers (OZEMPIC) 1 2-01 mg under ity of mg/dose (4 00:00: the skin [place] mg/3 mL) 00 weekly. Medical PnIj Branch pioglitazon 2022-0 Yes [id number] 30mg Take 1 Univers e 30 mg 2-01 tablet by ity of tablet 00:00: mouth in [place] the morning. Branch metFORMIN 2022-0 Yes [id number] 1000mg Take 1 Univers 1,000 mg 2-01 tablet by ity of tablet 00:00: mouth in [place] the morning Branch and 1 tablet in the evening. Take with meals. semaglutide 2022-0 Yes [id number] 1mg inject 1 Univers (OZEMPIC) 1 2-01 mg under ity of mg/dose (4 00:00: the [place] mg/3 mL) 00 weekly. Medical PnIj Branch pioglitazon 2022-0 Yes [id number] 30mg Take 1 Univers e 30 mg 2-01 tablet by ity of tablet 00:00: mouth in [place] the morning. Branch metFORMIN 2022-0 Yes [id number] 1000mg Take 1 Univers 1,000 mg 2-01 tablet by ity of tablet 00:00: mouth in [place] the morning Branch and 1 tablet in the evening. Take with meals. semaglutide 2023-0 Yes [id number] 1mg inject 1 Univers (OZEMPIC) 1 2-01 mg under ity of mg/dose (4 00:00: the [place] mg/3 mL) 00 weekly. [facility] pioglitazon 2022-0 Yes [id number] 30mg Take 1 Univers e 30 mg 2-01 tablet by ity of tablet 00:00: mouth in [place] the morning. Branch metFORMIN 2022-0 Yes [id number] 1000mg Take 1 Univers 1,000 mg 2-01 tablet by ity of tablet 00:00: mouth in [place] the Medical morning Branch and 1 tablet in the evening. Take with meals. semaglutide 2022-0 Yes [id number] 1mg inject 1 Univers (OZEMPIC) 1 2-01 mg under ity of mg/dose (4 00:00: the [place] mg/3 mL) 00 weekly. [facility] pioglitazon 2022-0 Yes [id number] 30mg Take 1 Univers e 30 mg 2-01 tablet by ity of tablet 00:00: mouth in [place] the morning. Branch metFORMIN 2022-0 Yes [id number] 1000mg Take 1 Univers 1,000 mg 2-01 tablet by ity of tablet 00:00: mouth in [place] the morning Branch and 1 tablet in the evening. Take with meals. semaglutide 2022-0 Yes [id number] 1mg inject 1 Univers (OZEMPIC) 1 2-01 mg under ity of mg/dose (4 00:00: the [place] mg/3 mL) 00 weekly. [facility] pioglitazon 2022-0 Yes [id number] 30mg Take 1 Univers e 30 mg 2-01 tablet by ity of tablet 00:00: mouth in [place] the morning. Branch metFORMIN 2022-0 Yes [id number] 1000mg Take 1 Univers 1,000 mg 2-01 tablet by ity of tablet 00:00: mouth in [place] [address] the morning Branch and 1 tablet in the evening. Take with meals. semaglutide 3-0 Yes [id number] 1mg inject 1 Univers (OZEMPIC) 1 2-01 mg under ity of mg/dose (4 00:00: the [place] mg/3 mL) 00 weekly. [facility] pioglitazon 2022-0 Yes [id number] 30mg Take 1 Univers e 30 mg 2-01 tablet by ity of tablet 00:00: mouth in [place] the morning. Branch metFORMIN 2022-0 Yes [id number] 1000mg Take 1 Univers 1,000 mg 2-01 tablet by ity of tablet 00:00: mouth in [place] the Medical morning Branch and 1 tablet in the evening. Take with meals. semaglutide 2022-0 Yes [id number] 1mg inject 1 Univers (OZEMPIC) 1 2-01 mg under ity of mg/dose (4 00:00: the [place] mg/3 mL) 00 weekly. [facility] pioglitazon 2022-0 Yes [id number] 30mg Take 1 Univers e 30 mg 2-01 tablet by ity of tablet 00:00: mouth in [place] the morning. Branch metFORMIN 2022-0 Yes [id number] 1000mg Take 1 Univers 1,000 mg 2-01 tablet by ity of tablet 00:00: mouth in [place] the Medical morning Branch and 1 tablet in the evening. Take with meals. semaglutide 2022-0 Yes [id number] 1mg inject 1 Univers (OZEMPIC) 1 2-01 mg under ity of mg/dose (4 00:00: the [place] mg/3 mL) 00 weekly. [facility] pioglitazon 2022-0 Yes [id number] 30mg Take 1 Univers e 30 mg 2-01 tablet by ity of tablet 00:00: mouth in [place] the morning. Branch metFORMIN 2022-0 Yes [id number] 1000mg Take 1 Univers 1,000 mg 2-01 tablet by ity of tablet 00:00: mouth in [place] the Medical morning Branch and 1 tablet in the evening. Take with meals. semaglutide 2022-0 Yes [id number] 1mg inject 1 Univers (OZEMPIC) 1 2-01 mg under ity of mg/dose (4 00:00: the [place] mg/3 mL) 00 weekly. [facility] pioglitazon 2022-0 Yes [id number] 30mg Take 1 Univers e 30 mg 2-01 tablet by ity of tablet 00:00: mouth in [place] 00 the Medical morning. Branch metFORMIN 2022-0 Yes [id number] 1000mg Take 1 Univers 1,000 mg 2-01 tablet by ity of tablet 00:00: mouth in [place] 00 the Medical morning Branch and 1 tablet in the evening. Take with meals. semaglutide 2022-0 Yes [id number] 1mg inject 1 Univers (OZEMPIC) 1 2-01 mg under ity of mg/dose (4 00:00: the [place] mg/3 mL) 00 weekly. Medical PnIj Branch pioglitazon 2022-0 Yes [id number] 30mg Take 1 Univers e 30 mg 2-01 tablet by ity of tablet 00:00: mouth in [place] 00 the Medical morning. Branch metFORMIN 2022-0 Yes [id number] 1000mg Take 1 Univers 1,000 mg 2-01 tablet by ity of tablet 00:00: mouth in [place] the morning Branch and 1 tablet in the evening. Take with meals. pioglitazon 2022- No [id number] 30mg Take 1 Univers e 30 mg 2- 02- tablet by ity of tablet 00:00: 00:00 mouth in [place] 00 :00 the Medical morning. Branch tirzepatide 2022- No [id number] 2.5mg inject 2.5 Univers (MOUNJARO) 2- 02- mg under ity of 2.5 mg/0.5 00:00: 00:[place] PnIj 00 :00 weekly. Medical Branch pioglitazon 2022- No [id number] 30mg Take 1 Univers e 30 mg 2- 02- tablet by ity of tablet 00:00: 00:00 mouth in [place] 00 :00 the Medical morning. Branch pioglitazon 2022- No [id number] 30mg Take 1 Univers e 30 mg 2- 02- tablet by ity of tablet 00:00: 00:00 mouth in [place] 00 :00 the Medical morning. Branch tirzepatide 2022- No [id number] 2.5mg inject 2.5 Univers (MOUNJARO) 2- 02- mg under ity of 2.5 mg/0.5 00:00: 00:00 [place] PnIj 00 :00 weekly. Medical Branch pioglitazon 3- No [id number] 30mg Take 1 Univers e 30 mg 09-13 tablet by ity of tablet 00:00: 00:00 mouth in [place] 00 :00 the Medical morning. Branch ONDANSETRON Yes Take by Uni vers HCL ORAL 1-31 mouth. ity of 09:40: [place] [address] Medical Branch ONDANSETRON Yes Take by Uni vers HCL ORAL 1-31 mouth. ity of 09:40: [address] Branch ONDANSETRON Yes Take by Uni vers HCL ORAL 1-31 mouth. ity of 09:40: [place] [address] Medical Branch ONDANSETRON Yes Take by Uni vers HCL ORAL 1-31 mouth. ity of 09:40: [address] Branch ONDANSETRON Yes Take by Uni vers HCL ORAL 1-31 mouth. ity of 09:40: [place] [address] Medical Branch ONDANSETRON Yes Take by Uni vers HCL ORAL 1-31 mouth. ity of 09:40: [address] Branch ONDANSETRON Yes Take by Uni vers HCL ORAL 1-31 mouth. ity of 09:40: [address] Branch ONDANSETRON Yes Take by Uni vers HCL ORAL 1-31 mouth. ity of 09:40: [address] Branch ONDANSETRON Yes Take by Uni vers HCL ORAL -31 mouth. ity of 09:40: [place] [address] Medical Branch ONDANSETRON Yes Take by Uni vers HCL ORAL 1-31 mouth. ity of 09:40: [address] Branch ONDANSETRON Yes Take by Uni vers HCL ORAL 1-31 mouth. ity of 09:40: [place] [address] Medical Branch ONDANSETRON Yes Take by Uni vers HCL ORAL 1-31 mouth. ity of 09:40: [place] [address] Medical Branch LORazepam 2022-0 3- No [id number] 1mg 1 mg, U nivers (ATIVAN) 08-16-04 Oral, ity of tablet 1 mg 20:15: 19:20 [place]CE, 1 [place] dose, On 08/16/22 Branch at 1415, Routine LORazepam 2022-0 3- No [id number] 1mg 1 mg, U nivers (ATIVAN) 1-04 01-04 Oral, ity of tablet 1 mg 20:15: 19:20 [place] dose, On Medical Sun08/16/22 Branch at 1415, Routine PROMETHAZIN 2022-0 Yes [id number] TAKE 2 Univers E 12.5 mg 1-04 TABLETS BY ity of tablet 00:00: MOUTH [place] 00 EVERY 6 Medical HOURS Branch NEEDED FOR VERTIGO JARDIANCE 2022-0 Yes [id number] TAKE 1 U nivers 25 mg Tab 1-04 TABLET BY ity o f 00:00: MOUTH ONCE [place] 00 DAILY IN Medical THE Branch MORNING HYDROXYZINE 2022-0 Yes [id number] TAKE 1 Univers 25 mg 1-04 TABLET BY ity of tablet 00:00: MOUTH [place] 00 EVERY 8 Medical HOURS Branch NEEDED FOR ITCHING PROMETHAZIN 2022-0 Yes [id number] TAKE 2 Univers E 12.5 mg 1-04 TABLETS BY ity of tablet 00:00: MOUTH [place] 00 EVERY 6 Medical HOURS Branch NEEDED FOR VERTIGO JARDIANCE 2022-0 Yes [id number] TAKE 1 U nivers 25 mg Tab 1-04 TABLET BY ity o f 00:00: MOUTH ONCE [place] 00 DAILY IN Medical THE Branch MORNING HYDROXYZINE 2022-0 Yes [id number] TAKE 1 Univers 25 mg 1-04 TABLET BY ity of tablet 00:00: MOUTH [place] 00 EVERY 8 Medical HOURS Branch NEEDED FOR ITCHING PROMETHAZIN 2022-0 Yes [id number] TAKE 2 Univers E 12.5 mg 1-04 TABLETS BY ity of tablet 00:00: MOUTH [place] 00 EVERY 6 Medical HOURS Branch NEEDED FOR VERTIGO JARDIANCE 2022-0 Yes [id number] TAKE 1 U nivers 25 mg Tab 1-04 TABLET BY ity o f 00:00: MOUTH ONCE [place] 00 DAILY IN Medical THE Branch MORNING HYDROXYZINE 2022-0 Yes [id number] TAKE 1 Univers 25 mg 1-04 TABLET BY ity of tablet 00:00: MOUTH [place] 00 EVERY 8 Medical HOURS Branch NEEDED FOR ITCHING PROMETHAZIN 2022-0 Yes [id number] TAKE 2 Univers E 12.5 mg 1-04 TABLETS BY ity of tablet 00:00: MOUTH [place] 00 EVERY 6 Medical HOURS Branch NEEDED FOR VERTIGO JARDIANCE 2023-0 Yes [id number] TAKE 1 U nivers 25 mg Tab 1-04 TABLET BY ity o f 00:00: MOUTH ONCE [place] 00 DAILY IN Medical THE Branch MORNING HYDROXYZINE 2022-0 Yes [id number] TAKE 1 Univers 25 mg 1-04 TABLET BY ity of tablet 00:00: MOUTH [place] 00 EVERY 8 Medical HOURS Branch NEEDED FOR ITCHING PROMETHAZIN 2022-0 Yes [id number] TAKE 2 Univers E 12.5 mg 1-04 TABLETS BY ity of tablet 00:00: MOUTH [place] 00 EVERY 6 Medical HOURS Branch NEEDED FOR VERTIGO JARDIANCE 2022-0 Yes [id number] TAKE 1 U nivers 25 mg Tab 1-04 TABLET BY ity o f 00:00: MOUTH ONCE [place] 00 DAILY IN Medical THE Branch MORNING HYDROXYZINE 2022-0 Yes [id number] TAKE 1 Univers 25 mg 1-04 TABLET BY ity of tablet 00:00: MOUTH [place] 00 EVERY 8 Medical HOURS Branch NEEDED FOR ITCHING PROMETHAZIN 2022-0 Yes [id number] TAKE 2 Univers E 12.5 mg 1-04 TABLETS BY ity of tablet 00:00: MOUTH [place] 00 EVERY 6 Medical HOURS Branch NEEDED FOR VERTIGO JARDIANCE 2022-0 Yes [id number] TAKE 1 U nivers 25 mg Tab 1-04 TABLET BY ity o f 00:00: MOUTH ONCE [place] 00 DAILY IN Medical THE Branch MORNING HYDROXYZINE 2022-0 Yes [id number] TAKE 1 Univers 25 mg 1-04 TABLET BY ity of tablet 00:00: MOUTH [place] 00 EVERY 8 Medical HOURS Branch NEEDED FOR ITCHING PROMETHAZIN 3-0 Yes [id number] TAKE 2 Univers E 12.5 mg 1-04 TABLETS BY ity of tablet 00:00: MOUTH [place] 00 EVERY 6 Medical HOURS Branch NEEDED FOR VERTIGO JARDIANCE 3-0 Yes [id number] TAKE 1 U nivers 25 mg Tab 1-04 TABLET BY ity o f 00:00: MOUTH ONCE [place] 00 DAILY IN Medical THE Branch MORNING HYDROXYZINE 2022-0 Yes [id number] TAKE 1 Univers 25 mg 1-04 TABLET BY ity of tablet 00:00: MOUTH [place] 00 EVERY 8 Medical HOURS Branch NEEDED FOR ITCHING PROMETHAZIN 2023-0 Yes [id number] TAKE 2 Univers E 12.5 mg 1-04 TABLETS BY ity of tablet 00:00: MOUTH [place] 00 EVERY 6 Medical HOURS Branch NEEDED FOR VERTIGO JARDIANCE 2023-0 Yes [id number] TAKE 1 U nivers 25 mg Tab 1-04 TABLET BY ity o f 00:00: MOUTH ONCE [place] 00 DAILY IN Medical THE Branch MORNING HYDROXYZINE 3-0 Yes [id number] TAKE 1 Univers 25 mg 1-04 TABLET BY ity of tablet 00:00: MOUTH [place] 00 EVERY 8 Medical HOURS Branch NEEDED FOR ITCHING PROMETHAZIN 3-0 Yes [id number] TAKE 2 Univers E 12.5 mg 1-04 TABLETS BY ity of tablet 00:00: MOUTH [place] 00 EVERY 6 Medical HOURS Branch NEEDED FOR VERTIGO JARDIANCE 2023-0 Yes [id number] TAKE 1 U nivers 25 mg Tab 1-04 TABLET BY ity o f 00:00: MOUTH ONCE [place] 00 DAILY IN Medical THE Branch MORNING HYDROXYZINE 3-0 Yes [id number] TAKE 1 Univers 25 mg 1-04 TABLET BY ity of tablet 00:00: MOUTH [place] 00 EVERY 8 Medical HOURS Branch NEEDED FOR ITCHING PROMETHAZIN 3-0 Yes [id number] TAKE 2 Univers E 12.5 mg 1-04 TABLETS BY ity of tablet 00:00: MOUTH [place] 00 EVERY 6 Medical HOURS Branch NEEDED FOR VERTIGO JARDIANCE 2023-0 Yes [id number] TAKE 1 U nivers 25 mg Tab 1-04 TABLET BY ity o f 00:00: MOUTH ONCE [place] 00 DAILY IN Medical THE Branch MORNING HYDROXYZINE 3-0 Yes [id number] TAKE 1 Univers 25 mg 1-04 TABLET BY ity of tablet 00:00: MOUTH [place] 00 EVERY 8 Medical HOURS Branch NEEDED FOR ITCHING PROMETHAZIN 2023-0 Yes [id number] TAKE 2 Univers E 12.5 mg 1-04 TABLETS BY ity of tablet 00:00: MOUTH [place] 00 EVERY 6 Medical HOURS Branch NEEDED FOR VERTIGO JARDIANCE 2023-0 Yes [id number] TAKE 1 U nivers 25 mg Tab 1-04 TABLET BY ity o f 00:00: MOUTH ONCE [place] 00 DAILY IN Medical THE Branch MORNING HYDROXYZINE 3-0 Yes [id number] TAKE 1 Univers 25 mg 1-04 TABLET BY ity of tablet 00:00: MOUTH [place] 00 EVERY 8 Medical HOURS Branch NEEDED FOR ITCHING PROMETHAZIN 2023-0 Yes [id number] TAKE 2 Univers E 12.5 mg 1-04 TABLETS BY ity of tablet 00:00: MOUTH [place] 00 EVERY 6 Medical HOURS Branch NEEDED FOR VERTIGO JARDIANCE 2023-0 Yes [id number] TAKE 1 U nivers 25 mg Tab 1-04 TABLET BY ity o f 00:00: MOUTH ONCE [place] 00 DAILY IN Medical THE Branch MORNING HYDROXYZINE 3-0 Yes [id number] TAKE 1 [facility] 25 mg 1-04 TABLET BY [facility] of tablet 00:00: MOUTH [place] 00 EVERY 8 Medical HOURS Branch NEEDED FOR ITCHING PROMETHAZIN 3-0 Yes [id number] TAKE 2 [facility] E 12.5 mg 1-04 TABLETS BY ity of tablet 00:00: MOUTH [place] 00 EVERY 6 Medical HOURS Branch NEEDED FOR VERTIGO JARDIANCE 2023-0 Yes [id number] TAKE 1 [facility] 25 mg Tab 1-04 TABLET BY ity o f 00:00: MOUTH ONCE [place] 00 DAILY IN Medical THE Branch MORNING HYDROXYZINE 3-0 Yes [id number] TAKE 1 [facility] 25 mg 1-04 TABLET BY [facility]y of tablet 00:00: MOUTH [place] 00 EVERY 8 Medical HOURS Branch NEEDED FOR ITCHING PROMETHAZIN 3-0 Yes [id number] TAKE 2 [facility] E 12.5 mg 1-04 TABLETS BY ity of tablet 00:00: MOUTH [place] 00 EVERY 6 Medical HOURS Branch NEEDED FOR VERTIGO JARDIANCE 2023-0 Yes [id number] TAKE 1 [facility] 25 mg Tab 1-04 TABLET BY ity o f 00:00: MOUTH ONCE [place] 00 DAILY IN Medical THE Branch MORNING HYDROXYZINE 3-0 Yes [id number] TAKE 1 [facility] 25 mg 1-04 TABLET BY ity of tablet 00:00: MOUTH [place] 00 EVERY 8 Medical HOURS Branch NEEDED FOR ITCHING PROMETHAZIN 2023-0 Yes [id number] TAKE 2 [facility] E 12.5 mg 1-04 TABLETS BY ity of tablet 00:00: MOUTH [place] 00 EVERY 6 Medical HOURS Branch NEEDED FOR VERTIGO JARDIANCE 2023-0 Yes [id number] TAKE 1 [facility] 25 mg Tab 1-04 TABLET BY ity o f 00:00: MOUTH ONCE [place] 00 DAILY IN Medical THE Branch MORNING HYDROXYZINE 3-0 Yes [id number] TAKE 1 [facility] 25 mg 1-04 TABLET BY ity of tablet 00:00: MOUTH [place] 00 EVERY 8 Medical HOURS Branch NEEDED FOR ITCHING PROMETHAZIN 2023-0 Yes [id number] TAKE 2 [facility] E 12.5 mg 1-04 TABLETS BY ity of tablet 00:00: MOUTH [place] 00 EVERY 6 Medical HOURS Branch NEEDED FOR VERTIGO JARDIANCE 2023-0 Yes [id number] TAKE 1 [facility] 25 mg Tab 1-04 TABLET BY ity o f 00:00: MOUTH ONCE [place] 00 DAILY IN Medical THE Branch MORNING HYDROXYZINE 3-0 Yes [id number] TAKE 1 [facility] 25 mg 1-04 TABLET BY ity of tablet 00:00: MOUTH [place] 00 EVERY 8 Medical HOURS Branch NEEDED FOR ITCHING PROMETHAZIN 2023-0 Yes [id number] TAKE 2 [facility] E 12.5 mg 1-04 TABLETS BY ity of tablet 00:00: MOUTH [place] 00 EVERY 6 Medical HOURS Branch NEEDED FOR VERTIGO JARDIANCE 2023-0 Yes [id number] TAKE 1 [facility] 25 mg Tab 1-04 TABLET BY ity o f 00:00: MOUTH ONCE [place] 00 DAILY IN Medical THE Branch MORNING HYDROXYZINE 3-0 Yes [id number] TAKE 1 [facility] 25 mg 1-04 TABLET BY ity of tablet 00:00: MOUTH [place] 00 EVERY 8 Medical HOURS Branch NEEDED FOR ITCHING PROMETHAZIN 2023-0 Yes [id number] TAKE 2 [facility] E 12.5 mg 1-04 TABLETS BY ity of tablet 00:00: MOUTH [place] 00 EVERY 6 Medical HOURS Branch NEEDED FOR VERTIGO JARDIANCE 2023-0 Yes [id number] TAKE 1 [facility] 25 mg Tab 1-04 TABLET BY ity o f 00:00: MOUTH ONCE [place] 00 DAILY IN Medical THE Branch MORNING HYDROXYZINE 3-0 Yes [id number] TAKE 1 [facility] 25 mg 1-04 TABLET BY ity of tablet 00:00: MOUTH [place] 00 EVERY 8 Medical HOURS Branch NEEDED FOR ITCHING PROMETHAZIN 2023-0 Yes [id number] TAKE 2 [facility] E 12.5 mg 1-04 TABLETS BY ity of tablet 00:00: MOUTH [place] 00 EVERY 6 Medical HOURS Branch NEEDED FOR VERTIGO JARDIANCE 2023-0 Yes [id number] TAKE 1 [facility] 25 mg Tab 1-04 TABLET BY ity o f 00:00: MOUTH ONCE [place] 00 DAILY IN Medical THE Branch MORNING HYDROXYZINE 2022-0 Yes [id number] TAKE 1 [facility] 25 mg 1-04 TABLET BY ity of tablet 00:00: MOUTH [place] 00 EVERY 8 Medical HOURS Branch NEEDED FOR ITCHING PROMETHAZIN 2022-0 Yes [id number] TAKE 2 [facility] E 12.5 mg 1-04 TABLETS BY ity of tablet 00:00: MOUTH [place] 00 EVERY 6 Medical HOURS Branch NEEDED FOR VERTIGO JARDIANCE 2022-0 Yes [id number] TAKE 1 [facility] 25 mg Tab 1-04 TABLET BY ity o f 00:00: MOUTH ONCE [place] 00 DAILY IN Medical THE Branch MORNING HYDROXYZINE 2022-0 Yes [id number] TAKE 1 [facility] 25 mg 1-04 TABLET BY [facility] of tablet 00:00: MOUTH [place] 00 EVERY 8 Medical HOURS Branch NEEDED FOR ITCHING PROMETHAZIN 2022-0 Yes [id number] TAKE 2 [facility] E 12.5 mg 1-04 TABLETS BY it[facility] of tablet 00:00: MOUTH [place] 00 EVERY 6 Medical HOURS Branch NEEDED FOR VERTIGO JARDIANCE 2022-0 Yes [id number] TAKE 1 [facility] 25 mg Tab 1-04 TABLET BY ity o f 00:00: MOUTH ONCE [place] 00 DAILY IN Medical THE Branch MORNING HYDROXYZINE 2022-0 Yes [id number] TAKE 1 [facility] 25 mg 1-04 TABLET BY [facility] of tablet 00:00: MOUTH [place] 00 EVERY 8 Medical HOURS Branch NEEDED FOR ITCHING PROMETHAZIN 2022-0 Yes [id number] TAKE 2 [facility] E 12.5 mg 1-04 TABLETS BY it[facility] of tablet 00:00: MOUTH [place] 00 EVERY 6 Medical HOURS Branch NEEDED FOR VERTIGO JARDIANCE 2022-0 Yes [id number] TAKE 1 [facility] 25 mg Tab 1-04 TABLET BY ity o f 00:00: MOUTH ONCE [place] 00 DAILY IN Medical THE Branch MORNING HYDROXYZINE 2022-0 Yes [id number] TAKE 1 [facility] 25 mg 1-04 TABLET BY [facility] of tablet 00:00: MOUTH [place] 00 EVERY 8 Medical HOURS Branch NEEDED FOR ITCHING PROMETHAZIN 2022-0 Yes [id number] TAKE 2 [facility] E 12.5 mg 1-04 TABLETS BY [facility] of tablet 00:00: MOUTH [place] 00 EVERY 6 Medical HOURS Branch NEEDED FOR VERTIGO JARDIANCE Yes [id number] TAKE 1 [facility] 25 mg Tab 1-04 TABLET BY ity o f 00:00: MOUTH ONCE [place] 00 DAILY IN Medical THE Branch MORNING HYDROXYZINE Yes [id number] TAKE 1 [facility] 25 mg 1-04 TABLET BY [facility] of tablet 00:00: MOUTH [place] 00 EVERY 8 Medical HOURS Branch NEEDED FOR ITCHING fluconazole 2021-08 Yes [id number] 200mg Take 1 [facility] 200 mg 2-08 tablet by [facility] of tablet 00:00: mouth in [place] the Medical morning. [place] fluconazole 2021-08 Yes [id number] 200mg Take 1 [facility] 200 mg 2-08 tablet by [facility] of tablet 00:00: mouth in [place] the Medical morning. [place] fluconazole 2021-08 Yes [id number] 200mg Take 1 [facility] 200 mg 2-08 tablet by [facility] of tablet 00:00: mouth in [place] the Medical morning. [place] fluconazole 2021-08 Yes [id number] 200mg Take 1 [facility] 200 mg 2-08 tablet by [facility] of tablet 00:00: mouth in [place] the Medical morning. [place] fluconazole 2021-08 Yes [id number] 200mg Take 1 [facility] 200 mg 2-08 tablet by [facility]y of tablet 00:00: mouth in [place] the Medical morning. [place] fluconazole 2021-08 Yes [id number] 200mg Take 1 [facility] 200 mg 2-08 tablet by [facility]y of tablet 00:00: mouth in [place] the Medical morning. [place] fluconazole 2021-08 Yes [id number] 200mg Take 1 [facility] 200 mg 2-08 tablet by [facility]y of tablet 00:00: mouth in [place] the Medical morning. [place] fluconazole 2021-08 Yes [id number] 200mg Take 1 [facility] 200 mg 2-08 tablet by [facility]y of tablet 00:00: mouth in [place] the Medical morning. [place] fluconazole 2021-08 Yes [id number] 200mg Take 1 [facility] 200 mg 2-08 tablet by ity of tablet 00:00: mouth in [place] the Medical morning. [place] fluconazole 2021-08 Yes [id number] 200mg Take 1 [facility] 200 mg 2-08 tablet by [facility]y of tablet 00:00: mouth in [place] the Medical morning. [place] fluconazole 2022-1 Yes [id number] 200mg Take 1 [facility] 200 mg 2-08 tablet by [facility] of tablet 00:00: mouth in [place] the Medical morning. Branch fluconazole 2021- Yes [id number] 200mg Take 1 [facility] 200 mg 2-08 tablet by [facility] of tablet 00:00: mouth in [place] the Medical morning. Branch fluconazole 2021-1 Yes [id number] 200mg Take 1 [facility] 200 mg 2-08 tablet by [facility] of tablet 00:00: mouth in [place] the Medical morning. Branch fluconazole 2021- Yes [id number] 200mg Take 1 [facility] 200 mg 2-08 tablet by [facility] of tablet 00:00: mouth in [place] the Medical morning. Branch fluconazole 2021- Yes [id number] 200mg Take 1 [facility] 200 mg 2-08 tablet by [facility] of tablet 00:00: mouth in [place] the Medical morning. Branch fluconazole 2021- Yes [id number] 200mg Take 1 [facility] 200 mg 2-08 tablet by [facility] of tablet 00:00: mouth in [place] the Medical morning. Branch fluconazole 2021- Yes [id number] 200mg Take 1 [facility] 200 mg 2-08 tablet by [facility] of tablet 00:00: mouth in [place] the Medical morning. Branch fluconazole 2021-1 Yes [id number] 200mg Take 1 [facility] 200 mg 2-08 tablet by [facility] of tablet 00:00: mouth in [place] the Medical morning. Branch fluconazole 2021-1 Yes [id number] 200mg Take 1 [facility] 200 mg 2-08 tablet by [facility] of tablet 00:00: mouth in [place] the Medical morning. Branch fluconazole 2021-1 Yes [id number] 200mg Take 1 [facility] 200 mg 2-08 tablet by [facility] of tablet 00:00: mouth in [place] the Medical morning. Branch fluconazole 2021-1 Yes [id number] 200mg Take 1 [facility] 200 mg 2-08 tablet by [facility]y of tablet 00:00: mouth in [place] the Medical morning. Branch fluconazole 2021-1 Yes [id number] 200mg Take 1 [facility] 200 mg 2-08 tablet by ity of tablet 00:00: mouth in [place] the Medical morning. Branch fluconazole 2021-1 Yes [id number] 200mg Take 1 [facility] 200 mg 2-08 tablet by ity of tablet 00:00: mouth in [place] the Medical morning. Branch fluconazole 2021-1 Yes [id number] 200mg Take 1 [facility] 200 mg 2-08 tablet by ity of tablet 00:00: mouth in [place] the Medical morning. Branch fluconazole 2021-1 Yes [id number] 200mg Take 1 [facility] 200 mg 2-08 tablet by ity of tablet 00:00: mouth in [place] the Medical morning. Branch fluconazole 2021-1 Yes [id number] 200mg Take 1 [facility] 200 mg 2-08 tablet by ity of tablet 00:00: mouth in [place] the Medical morning. Branch fluconazole 2021-1 Yes [id number] 200mg Take 1 [facility] 200 mg 2-08 tablet by ity of tablet 00:00: mouth in [place] the Medical morning. Branch fluconazole 2021-1 Yes [id number] 200mg Take 1 [facility] 200 mg 2-08 tablet by ity of tablet 00:00: mouth in [place] the Medical morning. Branch fluconazole 2021-1 Yes [id number] 200mg Take 1 [facility] 200 mg 2-08 tablet by ity of tablet 00:00: mouth in [place] the Medical morning. Branch fluconazole 2021-1 Yes [id number] 200mg Take 1 [facility] 200 mg 2-08 tablet by ity of tablet 00:00: mouth in [place] the Medical morning. Branch fluconazole 2021-1 Yes [id number] 200mg Take 1 [facility] 200 mg 2-08 tablet by ity of tablet 00:00: mouth in [place] the Medical morning. Branch fluconazole 2021-1 Yes [id number] 200mg Take 1 [facility] 200 mg 2-08 tablet by ity of tablet 00:00: mouth in [place] the Medical morning. Branch fluconazole 2021-1 Yes [id number] 200mg Take 1 [facility] 200 mg 2-08 tablet by ity of tablet 00:00: mouth in [place] the Medical morning. Branch fluconazole 2021-1 Yes [id number] 200mg Take 1 [facility] 200 mg 2-08 tablet by ity of tablet 00:00: mouth in [place] the Medical morning. Branch fluconazole 2021-1 Yes [id number] 200mg Take 1 [facility] 200 mg 2-08 tablet by ity of tablet 00:00: mouth in [place] the Medical morning. Branch fluconazole 2021-1 Yes [id number] 200mg Take 1 [facility] 200 mg 2-08 tablet by ity of tablet 00:00: mouth in [place] 00 the Medical morning. Branch terconazole 2021-08 Yes [id number] 1{appli Insert 1 [facility] 0.4 % 2-07 cator} Applicator ity of vaginal 00:00: into [place] cream 00 vagina at Medical bedtime. [place] terconazole 2021-08 Yes [id number] 1{appli Insert 1 [facility] 0.4 % 2-07 cator} Applicator ity of vaginal 00:00: into [place] cream 00 vagina at Medical bedtime. [place] terconazole 2021-08 Yes [id number] 1{appli Insert 1 [facility] 0.4 % 2-07 cator} Applicator ity of vaginal 00:00: into [place] cream 00 vagina at Medical bedtime. [place] terconazole 2021-08 Yes [id number] 1{appli Insert 1 [facility] 0.4 % 2-07 cator} Applicator ity of vaginal 00:00: into [place] cream 00 vagina at Medical bedtime. [place] terconazole 2021-08 Yes [id number] 1{appli Insert 1 [facility] 0.4 % 2-07 cator} Applicator ity of vaginal 00:00: into [place] cream 00 vagina at Medical bedtime. [place] terconazole 2021-08- No [id number] 1{appli Insert 1 [facility] 0.4 % 2-07 -21 cator} Applicator ity o f vaginal 00:00: 00:00 into [place] cream 00 :00 vagina at Medical bedtime. [place] terconazole 2021-08- No [id number] 1{appli Insert 1 [facility] 0.4 % 2-07 -21 cator} Applicator ity o f vaginal 00:00: 00:00 into [place] cream 00 :00 vagina at Medical bedtime. [place] NuvaRing 2021-08 Yes [id number] 1{each} Insert 1 [facility] 0.12-0.015 1-22 Each into ity of mg/24 hr 00:00: vagina [place] vaginal 00 once every Medica l insert month. Branch Insert vaginally and leave in place for 3 consecutiv e weeks, then remove for 1 week. NuvaRing 2021-08 Yes [id number] 1{each} Insert 1 [facility] 0.12-0.015 1-22 Each into ity of mg/24 hr 00:00: vagina [place] vaginal 00 once every Medica l insert month. Branch Insert vaginally and leave in place for 3 consecutiv e weeks, then remove for 1 week. NuvaRing 2021-08 Yes [id number] 1{each} Insert 1 [facility] 0.12-0.015 1-22 Each into ity of mg/24 hr 00:00: vagina [place] vaginal 00 once every Medica l insert month. Branch Insert vaginally and leave in place for 3 consecutiv e weeks, then remove for 1 week. NuvaRing 2021-08 Yes [id number] 1{each} Insert 1 [facility] 0.12-0.015 1-22 Each into ity of mg/24 hr 00:00: vagina [place] vaginal 00 once every Medica l insert month. Branch Insert vaginally and leave in place for 3 consecutiv e weeks, then remove for 1 week. NuvaRing 2021-08 Yes [id number] 1{each} Insert 1 [facility] 0.12-0.015 1-22 Each into ity of mg/24 hr 00:00: vagina [place] vaginal 00 once every Medica l insert month. Branch Insert vaginally and leave in place for 3 consecutiv e weeks, then remove for 1 week. NuvaRing 2021-08 Yes [id number] 1{each} Insert 1 [facility] 0.12-0.015 1-22 Each into ity of mg/24 hr 00:00: vagina [place] vaginal 00 once every Medica l insert month. Branch Insert vaginally and leave in place for 3 consecutiv e weeks, then remove for 1 week. NuvaRing 2021-08 Yes [id number] 1{each} Insert 1 [facility] 0.12-0.015 1-22 Each into ity of mg/24 hr 00:00: vagina [place] vaginal 00 once every Medica l insert month. Branch Insert vaginally and leave in place for 3 consecutiv e weeks, then remove for 1 week. NuvaRing 2021-08 Yes [id number] 1{each} Insert 1 [facility] 0.12-0.015 1-22 Each into ity of mg/24 hr 00:00: vagina [place] vaginal 00 once every Medica l insert month. Branch Insert vaginally and leave in place for 3 consecutiv e weeks, then remove for 1 week. NuvaRing 2021-08 Yes [id number] 1{each} Insert 1 [facility] 0.12-0.015 1-22 Each into ity of mg/24 hr 00:00: vagina [place] vaginal 00 once every Medica l insert month. Branch Insert vaginally and leave in place for 3 consecutiv e weeks, then remove for 1 week. NuvaRing 2021-08 Yes [id number] 1{each} Insert 1 [facility] 0.12-0.015 1-22 Each into ity of mg/24 hr 00:00: vagina [place] vaginal 00 once every Medica l insert month. Branch Insert vaginally and leave in place for 3 consecutiv e weeks, then remove for 1 week. NuvaRing 2021-08 Yes [id number] 1{each} Insert 1 [facility] 0.12-0.015 1-22 Each into ity of mg/24 hr 00:00: vagina [place] vaginal 00 once every Medica l insert month. Branch Insert vaginally and leave in place for 3 consecutiv e weeks, then remove for 1 week. NuvaRing 2021-08 Yes [id number] 1{each} Insert 1 [facility] 0.12-0.015 1-22 Each into ity of mg/24 hr 00:00: vagina [place] vaginal 00 once every Medica l insert month. Branch Insert vaginally and leave in place for 3 consecutiv e weeks, then remove for 1 week. NuvaRing 2021-08 Yes [id number] 1{each} Insert 1 [facility] 0.12-0.015 1-22 Each into ity of mg/24 hr 00:00: vagina [place] vaginal 00 once every Medica l insert month. Branch Insert vaginally and leave in place for 3 consecutiv e weeks, then remove for 1 week. NuvaRing 2021-08 Yes [id number] 1{each} Insert 1 [facility] 0.12-0.015 1-22 Each into ity of mg/24 hr 00:00: vagina [place] vaginal 00 once every Medica l insert month. Branch Insert vaginally and leave in place for 3 consecutiv e weeks, then remove for 1 week. NuvaRing 2021-08 Yes [id number] 1{each} Insert 1 [facility] 0.12-0.015 1-22 Each into ity of mg/24 hr 00:00: vagina [place] vaginal 00 once every Medica l insert month. Branch Insert vaginally and leave in place for 3 consecutiv e weeks, then remove for 1 week. NuvaRing 2021-08 Yes [id number] 1{each} Insert 1 [facility] 0.12-0.015 1-22 Each into ity of mg/24 hr 00:00: vagina [place] vaginal 00 once every Medica l insert month. Branch Insert vaginally and leave in place for 3 consecutiv e weeks, then remove for 1 week. NuvaRing 2021-08 Yes [id number] 1{each} Insert 1 [facility] 0.12-0.015 1-22 Each into ity of mg/24 hr 00:00: vagina [place] vaginal 00 once every Medica l insert month. Branch Insert vaginally and leave in place for 3 consecutiv e weeks, then remove for 1 week. NuvaRing 2021-08 Yes [id number] 1{each} Insert 1 [facility] 0.12-0.015 1-22 Each into ity of mg/24 hr 00:00: vagina [place] vaginal 00 once every Medica l insert month. Branch Insert vaginally and leave in place for 3 consecutiv e weeks, then remove for 1 week. NuvaRing 2021-08 Yes [id number] 1{each} Insert 1 [facility] 0.12-0.015 1-22 Each into ity of mg/24 hr 00:00: vagina [place] vaginal 00 once every Medica l insert month. Branch Insert vaginally and leave in place for 3 consecutiv e weeks, then remove for 1 week. NuvaRing 2021-08 Yes [id number] 1{each} Insert 1 [facility] 0.12-0.015 1-22 Each into ity of mg/24 hr 00:00: vagina [place] vaginal 00 once every Medica l insert month. Branch Insert vaginally and leave in place for 3 consecutiv e weeks, then remove for 1 week. NuvaRing 2021-08 Yes [id number] 1{each} Insert 1 [facility] 0.12-0.015 1-22 Each into ity of mg/24 hr 00:00: vagina [place] vaginal 00 once every Medica l insert month. Branch Insert vaginally and leave in place for 3 consecutiv e weeks, then remove for 1 week. NuvaRing 2021-08 Yes [id number] 1{each} Insert 1 [facility] 0.12-0.015 1-22 Each into ity of mg/24 hr 00:00: vagina [place] vaginal 00 once every Medica l insert month. Branch Insert vaginally and leave in place for 3 consecutiv e weeks, then remove for 1 week. NuvaRing 2021-08 Yes [id number] 1{each} Insert 1 [facility] 0.12-0.015 1-22 Each into ity of mg/24 hr 00:00: vagina [place] vaginal 00 once every Medica l insert month. Branch Insert vaginally and leave in place for 3 consecutiv e weeks, then remove for 1 week. NuvaRing 2021-08 Yes [id number] 1{each} Insert 1 [facility] 0.12-0.015 1-22 Each into ity of mg/24 hr 00:00: vagina [place] vaginal 00 once every Medica l insert month. Branch Insert vaginally and leave in place for 3 consecutiv e weeks, then remove for 1 week. NuvaRing 2021-08 Yes [id number] 1{each} Insert 1 [facility] 0.12-0.015 1-22 Each into ity of mg/24 hr 00:00: vagina [place] vaginal 00 once every Medica l insert month. Branch Insert vaginally and leave in place for 3 consecutiv e weeks, then remove for 1 week. NuvaRing 2021-08 Yes [id number] 1{each} Insert 1 [facility] 0.12-0.015 1-22 Each into ity of mg/24 hr 00:00: vagina [place] vaginal 00 once every Medica l insert month. Branch Insert vaginally and leave in place for 3 consecutiv e weeks, then remove for 1 week. NuvaRing 2021-08 Yes [id number] 1{each} Insert 1 [facility] 0.12-0.015 1-22 Each into ity of mg/24 hr 00:00: vagina [place] vaginal 00 once every Medica l insert month. Branch Insert vaginally and leave in place for 3 consecutiv e weeks, then remove for 1 week. NuvaRing 2021-08 Yes [id number] 1{each} Insert 1 [facility] 0.12-0.015 1-22 Each into ity of mg/24 hr 00:00: vagina [place] vaginal 00 once every Medica l insert month. Branch Insert vaginally and leave in place for 3 consecutiv e weeks, then remove for 1 week. NuvaRing 2021-08 Yes [id number] 1{each} Insert 1 [facility] 0.12-0.015 1-22 Each into ity of mg/24 hr 00:00: vagina [place] vaginal 00 once every Medica l insert month. Branch Insert vaginally and leave in place for 3 consecutiv e weeks, then remove for 1 week. NuvaRing 2021-08 Yes [id number] 1{each} Insert 1 [facility] 0.12-0.015 1-22 Each into ity of mg/24 hr 00:00: vagina [place] vaginal 00 once every Medica l insert month. Branch Insert vaginally and leave in place for 3 consecutiv e weeks, then remove for 1 week. NuvaRing 2021-08 Yes [id number] 1{each} Insert 1 [facility] 0.12-0.015 1-22 Each into ity of mg/24 hr 00:00: vagina [place] vaginal 00 once every Medica l insert month. Branch Insert vaginally and leave in place for 3 consecutiv e weeks, then remove for 1 week. NuvaRing 2021-08 Yes [id number] 1{each} Insert 1 [facility] 0.12-0.015 1-22 Each into ity of mg/24 hr 00:00: vagina [place] vaginal 00 once every Medica l insert month. Branch Insert vaginally and leave in place for 3 consecutiv e weeks, then remove for 1 week. NuvaRing 2021-08 Yes [id number] 1{each} Insert 1 [facility] 0.12-0.015 1-22 Each into ity of mg/24 hr 00:00: vagina [place] vaginal 00 once every Medica l insert month. Branch Insert vaginally and leave in place for 3 consecutiv e weeks, then remove for 1 week. NuvaRing 2021-08 Yes [id number] 1{each} Insert 1 [facility] 0.12-0.015 1-22 Each into ity of mg/24 hr 00:00: vagina [place] vaginal 00 once every Medica l insert month. Branch Insert vaginally and leave in place for 3 consecutiv e weeks, then remove for 1 week. NuvaRing 2021-08 Yes [id number] 1{each} Insert 1 [facility] 0.12-0.015 1-22 Each into ity of mg/24 hr 00:00: vagina [place] vaginal 00 once every Medica l insert month. Branch Insert vaginally and leave in place for 3 consecutiv e weeks, then remove for 1 week. NuvaRing 2021-08 Yes [id number] 1{each} Insert 1 [facility] 0.12-0.015 1-22 Each into ity of mg/24 hr 00:00: vagina [place] vaginal 00 once every Medica l insert month. Branch Insert vaginally and leave in place for 3 consecutiv e weeks, then remove for 1 week. NuvaRing 2021-08 Yes [id number] 1{each} Insert 1 [facility] 0.12-0.015 1-22 Each into ity of mg/24 hr 00:00: vagina [place] vaginal 00 once every Medica l insert month. Branch Insert vaginally and leave in place for 3 consecutiv e weeks, then remove for 1 week. NuvaRing 2021-08 Yes [id number] 1{each} Insert 1 [facility] 0.12-0.015 1-22 Each into ity of mg/24 hr 00:00: vagina [place] vaginal 00 once every Medica l insert month. Branch Insert vaginally and leave in place for 3 consecutiv e weeks, then remove for 1 week. NuvaRing 2021-08 Yes [id number] 1{each} Insert 1 [facility] 0.12-0.015 1-22 Each into ity of mg/24 hr 00:00: vagina [place] vaginal 00 once every Medica l insert month. Branch Insert vaginally and leave in place for 3 consecutiv e weeks, then remove for 1 week. NuvaRing 2021-08 Yes [id number] 1{each} Insert 1 [facility] 0.12-0.015 1-22 Each into ity of mg/24 hr 00:00: vagina [place] vaginal 00 once every Medica l insert month. Branch Insert vaginally and leave in place for 3 consecutiv e weeks, then remove for 1 week. NuvaRing 2021-08 Yes [id number] 1{each} Insert 1 [facility] 0.12-0.015 1-22 Each into ity of mg/24 hr 00:00: vagina [place] vaginal 00 once every Medica l insert month. Branch Insert vaginally and leave in place for 3 consecutiv e weeks, then remove for 1 week. NuvaRing 2021-08 Yes [id number] 1{each} Insert 1 [facility] 0.12-0.015 1-22 Each into ity of mg/24 hr 00:00: vagina [place] vaginal 00 once every Medica l insert month. Branch Insert vaginally and leave in place for 3 consecutiv e weeks, then remove for 1 week. NuvaRing 2021-08 Yes [id number] 1{each} Insert 1 [facility] 0.12-0.015 09-03 Each into ity of mg/24 hr 00:00: vagina [place] vaginal 00 once every Medica l insert month. Branch Insert vaginally and leave in place for 3 consecutiv e weeks, then remove for 1 week. lactated 2021-08- No [id number] 500mL [facility] vers ringers IV 08-30 ity of infusion 21:45: 20:39 [place] 500 mL 00 :00 Medical Branch lactated 2021-08- No [id number] 500mL at 20 Un joby ringers IV 08-30 mL/hr, 500 it y of infusion 21:45: 20:39 mL, IV [place] 500 mL 00 :00 Infusion, Medical ONCE, 1 Branch dose, On Sun06/30/22 at 1545, Routine lactated 2021-08- No [id number] 500mL [facility] vers ringers IV 08-30 ity of infusion 21:45: 20:39 [place] 500 mL 00 :00 Medical Branch lactated 2021-08- No [id number] 500mL at 20 Un joby ringers IV 08-30 mL/hr, 500 it y of infusion 21:45: 20:39 mL, IV [place] 500 mL 00 :00 Infusion, Medical ONCE, 1 Branch dose, On Sun06/30/22 at 1545, Routine lidocaine 2021-08- No [id number] 10mL Uni vers 1% (PF) 08-30 ity of (XYLOCAINE) 20:37: 20:37 [place] injection 00 :00 Medical 10 mL Branch triamcinolo 2021-08- No [id number] 80mg U nivers ne 08-30 ity of acetonide 20:37: 20:38 [place] (KENALOG) 00 :00 Medical injection Branch 80 mg triamcinolo 2021-08- No [id number] 80mg 80 mg, Univers ne 08-30 Infiltrati ity of acetonide 20:37: 20:38 [place] ([place] 00 :00 1 dose, On Medi nirmal injection Fri Branch 80 mg 06/30/22 at 1445, Routine lidocaine 2021-08- No [id number] 10mL 10 mL, U nivers 1% (PF) 08-30 Infiltrati ity o f (XYLOCAINE) 20:37: 20:37 on, ONCE, [place] injection 00 :00 1 dose, On Medi nirmal 10 mL Fri Branch 06/30/22 at 1445, Routine lidocaine 2021-08- No [id number] 10mL [facility] vers 1% (PF) 08-30 ity of (XYLOCAINE) 20:37: 20:37 [place] injection 00 :00 Medical 10 mL Branch triamcinolo 2021-08 No [id number] 80mg U nivers ne 08-30 ity of acetonide 20:37: 20:38 [place] (KENALOG) 00 :00 Medical injection Branch 80 mg triamcinolo 2021-08 No [id number] 80mg 80 mg, [facility] ne 08-30 Infiltrati ity of acetonide 20:37: 20:38 [place] (KE[place] 00 :00 1 dose, On Medi nirmal injection Fri Branch 80 mg 06/30/22 at 1445, Routine lidocaine 2021-08 No [id number] 10mL 10 mL, U nivers 1% (PF) 08-30 Infiltrati ity o f (XYLOCAINE) 20:37: 20:37 on, ONCE, [place] injection 00 :00 1 dose, On Medi nirmal 10 mL Fri Branch 06/30/22 at 1445, Routine bupivacaine 2021-08 No [id number] 4mL [facility] n[facility] (preserv 08-30 ity of free) 20:36: 20:38 [place] (SENSORCAIN 00 :00 Medical E MPF) 0.25 Branch % (2.5 mg/mL) injection 4 mL bupivacaine 2021-08- No [id number] 4mL 4 mL, [facility] (preserv 08-30 Infiltrati ity of free) 20:36: 20:38 on, ONCE, [place] (SENSORCAIN 00 :00 1 dose, On Me dical E MPF) 0.25 Fri Branch % (2.5 11/18/22 mg/mL) at 1445, injection 4 Routine mL bupivacaine 2021-08- No [id number] 4mL U nivers (preserv 08-30 ity of free) 20:36: 20:38 [place] (SENSORCAIN 00 :00 Medical E MPF) 0.25 Branch % (2.5 mg/mL) injection 4 mL bupivacaine 2021-08- No [id number] 4mL 4 mL, [facility] (preserv 08-30 Infiltrati ity of free) 20:36: 20:38 on, ONCE, [place] (SENSORCAIN 00 :00 1 dose, On Me dical E MPF) 0.25 Fri Branch % (2.5 06/30/22 mg/mL) at 1445, injection 4 Routine mL HYDROXYZINE 2021-08 Yes [id number] TAKE 1 [facility] 25 mg 1-16 TABLET BY ity of tablet 00:00: MOUTH [place] 00 EVERY 8 Medical HOURS Branch NEEDED FOR ITCHING PROMETHAZIN 2021-08 Yes [id number] TAKE 1 [facility] E 12.5 mg 1-16 TABLET BY ity o f tablet 00:00: MOUTH ONCE 00 DAILY Medical NEEDED FOR Branch NAUSEA AND VOMITING HYDROXYZINE 2021-08 Yes [id number] TAKE 1 [facility] 25 mg 1-16 TABLET BY ity of tablet 00:00: MOUTH [place] 00 EVERY 8 Medical HOURS Branch NEEDED FOR ITCHING PROMETHAZIN 2021-08 Yes [id number] TAKE 1 [facility] E 12.5 mg 1-16 TABLET BY ity o f tablet 00:00: MOUTH ONCE 00 DAILY Medical NEEDED FOR Branch NAUSEA AND VOMITING HYDROXYZINE 2021-08 Yes [id number] TAKE 1 [facility] 25 mg 1-16 TABLET BY ity of tablet 00:00: MOUTH [place] 00 EVERY 8 Medical HOURS Branch NEEDED FOR ITCHING PROMETHAZIN 2021-08 Yes [id number] TAKE 1 [facility] E 12.5 mg 1-16 TABLET BY ity o f tablet 00:00: MOUTH ONCE [place] 00 DAILY Medical NEEDED FOR Branch NAUSEA AND VOMITING HYDROXYZINE 2021-08 Yes [id number] TAKE 1 [facility] 25 mg 1-16 TABLET BY ity of tablet 00:00: MOUTH [place] 00 EVERY 8 Medical HOURS Branch NEEDED FOR ITCHING PROMETHAZIN 2021-08 Yes [id number] TAKE 1 [facility] E 12.5 mg 1-16 TABLET BY ity o f tablet 00:00: MOUTH ONCE [place] 00 DAILY Medical NEEDED FOR Branch NAUSEA AND VOMITING HYDROXYZINE 2021- Yes [id number] TAKE 1 [facility] 25 mg 1-16 TABLET BY ity of tablet 00:00: MOUTH [place] 00 EVERY 8 Medical HOURS Branch NEEDED FOR ITCHING PROMETHAZIN 2021- Yes [id number] TAKE 1 [facility] E 12.5 mg 1-16 TABLET BY ity o f tablet 00:00: MOUTH ONCE [place] 00 DAILY Medical NEEDED FOR Branch NAUSEA AND VOMITING HYDROXYZINE 2021- Yes [id number] TAKE 1 [facility] 25 mg 1-16 TABLET BY ity of tablet 00:00: MOUTH [place] 00 EVERY 8 Medical HOURS Branch NEEDED FOR ITCHING PROMETHAZIN 2021- Yes [id number] TAKE 1 [facility] E 12.5 mg 1-16 TABLET BY ity o f tablet 00:00: MOUTH ONCE 00 DAILY Medical NEEDED FOR Branch NAUSEA AND VOMITING HYDROXYZINE 2021- Yes [id number] TAKE 1 [facility] 25 mg 1-16 TABLET BY ity of tablet 00:00: MOUTH [place] 00 EVERY 8 Medical HOURS Branch NEEDED FOR ITCHING PROMETHAZIN 2021- Yes [id number] TAKE 1 [facility] E 12.5 mg 1-16 TABLET BY ity o f tablet 00:00: MOUTH ONCE 00 DAILY Medical NEEDED FOR Branch NAUSEA AND VOMITING HYDROXYZINE 2021- Yes [id number] TAKE 1 [facility] 25 mg 1-16 TABLET BY ity of tablet 00:00: MOUTH [place] 00 EVERY 8 Medical HOURS Branch NEEDED FOR ITCHING HYDROXYZINE 2021- Yes [id number] TAKE 1 [facility] 25 mg 1-16 TABLET BY ity of tablet 00:00: MOUTH [place] 00 EVERY 8 Medical HOURS Branch NEEDED FOR ITCHING HYDROXYZINE 2021- Yes [id number] TAKE 1 [facility] 25 mg 1-16 TABLET BY ity of tablet 00:00: MOUTH [place] 00 EVERY 8 Medical HOURS Branch NEEDED FOR ITCHING HYDROXYZINE 2021- Yes [id number] TAKE 1 [facility] 25 mg 1-16 TABLET BY ity of tablet 00:00: MOUTH [place] 00 EVERY 8 Medical HOURS Branch NEEDED FOR ITCHING HYDROXYZINE 2021- Yes [id number] TAKE 1 [facility] 25 mg 1-16 TABLET BY ity of tablet 00:00: MOUTH [place] 00 EVERY 8 Medical HOURS Branch NEEDED FOR ITCHING HYDROXYZINE 2021- Yes [id number] TAKE 1 [facility] 25 mg 1-16 TABLET BY ity of tablet 00:00: MOUTH [place] 00 EVERY 8 Medical HOURS Branch NEEDED FOR ITCHING HYDROXYZINE 2021-1 Yes [id number] TAKE 1 [facility] 25 mg 1-16 TABLET BY ity of tablet 00:00: MOUTH [place] 00 EVERY 8 Medical HOURS Branch NEEDED FOR ITCHING HYDROXYZINE 2021- Yes [id number] TAKE 1 [facility] 25 mg 1-16 TABLET BY ity of tablet 00:00: MOUTH [place] 00 EVERY 8 Medical HOURS Branch NEEDED FOR ITCHING HYDROXYZINE 2021- Yes [id number] TAKE 1 [facility] 25 mg 1-16 TABLET BY ity of tablet 00:00: MOUTH [place] 00 EVERY 8 Medical HOURS Branch NEEDED FOR ITCHING HYDROXYZINE 2021- Yes [id number] TAKE 1 [facility] 25 mg 1-16 TABLET BY ity of tablet 00:00: MOUTH [place] 00 EVERY 8 Medical HOURS Branch NEEDED FOR ITCHING HYDROXYZINE 2021- Yes [id number] TAKE 1 [facility] 25 mg 1-16 TABLET BY ity of tablet 00:00: MOUTH [place] 00 EVERY 8 Medical HOURS Branch NEEDED FOR ITCHING HYDROXYZINE 2021- Yes [id number] TAKE 1 [facility] 25 mg 1-16 TABLET BY ity of tablet 00:00: MOUTH [place] 00 EVERY 8 Medical HOURS Branch NEEDED FOR ITCHING HYDROXYZINE 2021- Yes [id number] TAKE 1 [facility] 25 mg 1-16 TABLET BY ity of tablet 00:00: MOUTH [place] 00 EVERY 8 Medical HOURS Branch NEEDED FOR ITCHING HYDROXYZINE 2021- Yes [id number] TAKE 1 [facility] 25 mg 1-16 TABLET BY ity of tablet 00:00: MOUTH [place] 00 EVERY 8 Medical HOURS Branch NEEDED FOR ITCHING HYDROXYZINE 2021- Yes [id number] TAKE 1 [facility] 25 mg 1-16 TABLET BY ity of tablet 00:00: MOUTH [place] 00 EVERY 8 Medical HOURS Branch NEEDED FOR ITCHING HYDROXYZINE 2021-2022- No [id number] TAKE 1 [facility] 25 mg 1-16 -04 TABLET BY ity of tablet 00:00: 00:00 MOUTH [place] 00 :00 EVERY 8 Medical HOURS Branch NEEDED FOR ITCHING HYDROXYZINE 2021-2022- No [id number] TAKE 1 [facility] 25 mg 1-16 -04 TABLET BY ity of tablet 00:00: 00:00 MOUTH [place] 00 :00 EVERY 8 Medical HOURS Branch NEEDED FOR ITCHING HYDROXYZINE 2021-08- No [id number] TAKE 1 [facility] 25 mg 1-16 -04 TABLET BY ity of tablet 00:00: 00:00 MOUTH [place] 00 :00 EVERY 8 Medical HOURS Branch NEEDED FOR ITCHING HYDROXYZINE 2021-08- No [id number] TAKE 1 [facility] 25 mg 1-16 -04 TABLET BY ity of tablet 00:00: 00:00 MOUTH [place] 00 :00 EVERY 8 Medical HOURS Branch NEEDED FOR ITCHING HYDROXYZINE 2021-08- No [id number] TAKE 1 [facility] 25 mg 1-16 -04 TABLET BY ity of tablet 00:00: 00:00 MOUTH [place] 00 :00 EVERY 8 Medical HOURS Branch NEEDED FOR ITCHING HYDROXYZINE 2021-08- No [id number] TAKE 1 [facility] 25 mg 1-16 - TABLET BY ity of tablet 00:00: 00:00 MOUTH [place] 00 :00 EVERY 8 Medical HOURS Branch NEEDED FOR ITCHING PROMETHAZIN 2021-08- No [id number] TAKE 1 [facility] E 12.5 mg 1-16 12-05 TABLET BY ity of tablet 00:00: 00:00 MOUTH [place]CE [place] 00 :00 DAILY Medical NEEDED FOR Branch NAUSEA AND VOMITING PROMETHAZIN 2021-08- No [id number] TAKE 1 [facility] E 12.5 mg 1-16 12-05 TABLET BY ity of tablet 00:00: 00:00 M[place]TH [place]CE [place] 00 :00 DAILY Medical NEEDED FOR Branch NAUSEA AND VOMITING PROMETHAZIN 2021-08- No [id number] TAKE 1 [facility] E 12.5 mg 1-16 12-05 TABLET BY ity of tablet 00:00: 00:00 M[place]TH [place]CE [place] 00 :00 DAILY Medical NEEDED FOR Branch NAUSEA AND VOMITING PROMETHAZIN 2021-08- No [id number] TAKE 1 [facility] E 12.5 mg 1-16 12-05 TABLET BY ity of tablet 00:00: 00:00 M[place]TH [place]CE [place] 00 :00 DAILY Medical NEEDED FOR Branch NAUSEA AND VOMITING proMETHazin 2021-08 Yes [id number] 12.5mg Take 1 [facility] e 12.5 mg 0-10 tablet by ity o f tablet 00:00: mouth once [place] 00 daily as Medical needed for Branch Nausea and Vomiting (N/V). proMETHazin 2021-08 Yes [id number] 12.5mg Take 1 [facility] e 12.5 mg 0-10 tablet by ity o f tablet 00:00: mouth once [place] 00 daily as Medical needed for Branch Nausea and Vomiting (N/V). proMETHazin 2021-08 Yes [id number] 12.5mg Take 1 [facility] e 12.5 mg 0-10 tablet by ity o f tablet 00:00: mouth once [place] 00 daily as Medical needed for Branch Nausea and Vomiting (N/V). proMETHazin 2021-08 Yes [id number] 12.5mg Take 1 [facility] e 12.5 mg 0-10 tablet by ity o f tablet 00:00: mouth once [place] 00 daily as Medical needed for Branch Nausea and Vomiting (N/V). proMETHazin 2021-08 Yes [id number] 12.5mg Take 1 [facility] e 12.5 mg 0-10 tablet by ity o f tablet 00:00: mouth once [place] 00 daily as Medical needed for Branch Nausea and Vomiting (N/V). proMETHazin 2021-08 Yes [id number] 12.5mg Take 1 [facility] e 12.5 mg 0-10 tablet by ity o f tablet 00:00: mouth once [place] 00 daily as Medical needed for Branch Nausea and Vomiting (N/V). proMETHazin 2021-08- No [id number] 12.5mg Take 1 [facility] e 12.5 mg 0-10 11-16 tablet by ity of tablet 00:00: 00:00 mouth [place] 00 :00 daily as Medical needed for Branch Nausea and Vomiting (N/V). gabapentin 2021-08 Yes [id number] 400mg Take 1 [facility] 400 mg 0-04 9100 capsule by ity of capsule 00:00: mouth in [place] 00 the Medical morning Branch and 1 capsule at noon and 1 capsule in the evening. tiZANidine 2021-08 Yes [id number] 4mg Take 1 [facility] 4 mg tablet 0-04 9100 tablet by ity of 00:00: mouth 3 [place] 00 (three) Medical times Branch daily as needed (muscle spasm). meloxicam 2021-08 Yes [id number] 15mg Take 1 Un job[facility] 15 mg 0-04 tablet by ity of tablet 00:00: mouth in [place] the Medical morning. Branch gabapentin 2021-08 Yes [id number] 400mg Take 1 [facility] 400 mg 0-04 9100 capsule by ity of capsule 00:00: mouth in [place] the Medical morning Branch and 1 capsule at noon and 1 capsule in the evening. tiZANidine 2021-08 Yes [id number] 4mg Take 1 [facility] 4 mg tablet 0-04 9100 tablet by ity of 00:00: mouth 3 [place] (three) Medical times Branch daily as needed (muscle spasm). meloxicam 2021-08 Yes [id number] 15mg Take 1 Un job[facility] 15 mg 0-04 tablet by ity of tablet 00:00: mouth in [place] the Medical morning. Branch gabapentin 2021-08 Yes [id number] 400mg Take 1 [facility] 400 mg 0-04 9100 capsule by ity of capsule 00:00: mouth in [place] the Medical morning Branch and 1 capsule at noon and 1 capsule in the evening. tiZANidine 2021-08 Yes [id number] 4mg Take 1 [facility] 4 mg tablet 0-04 9100 tablet by ity of 00:00: mouth 3 [place] (three) Medical times [place] daily as needed (muscle spasm). meloxicam 2021-08 Yes [id number] 15mg Take 1 Un [facility] 15 mg 0-04 tablet by ity of tablet 00:00: mouth in [place] the Medical morning. Branch gabapentin 2021-08 Yes [id number] 400mg Take 1 [facility] 400 mg 0-04 9100 capsule by ity of capsule 00:00: mouth in [place] the Medical morning Branch and 1 capsule at noon and 1 capsule in the evening. tiZANidine 2021-08 Yes [id number] 4mg Take 1 [facility] 4 mg tablet 0-04 9100 tablet by ity of 00:00: mouth 3 [place] (three) Medical times [place] daily as needed (muscle spasm). meloxicam 2021-08 Yes [id number] 15mg Take 1 Un job[facility] 15 mg 0-04 tablet by ity of tablet 00:00: mouth in [place] the Medical morning. Branch gabapentin 2021-08 Yes [id number] 400mg Take 1 [facility] 400 mg 0-04 9100 capsule by ity of capsule 00:00: mouth in [place] the Medical morning Branch and 1 capsule at noon and 1 capsule in the evening. tiZANidine 2021-08 Yes [id number] 4mg Take 1 [facility] 4 mg tablet 0-04 9100 tablet by ity of 00:00: mouth 3 [place] (three) Medical times [place] daily as needed (muscle spasm). meloxicam 2021-08 Yes [id number] 15mg Take 1 Un job[facility] 15 mg 0-04 tablet by ity of tablet 00:00: mouth in [place] the Medical morning. Branch gabapentin 2021-08 Yes [id number] 400mg Take 1 [facility] 400 mg 0-04 9100 capsule by ity of capsule 00:00: mouth in [place] the Medical morning Branch and 1 capsule at noon and 1 capsule in the evening. tiZANidine 2021-08 Yes [id number] 4mg Take 1 [facility] 4 mg tablet 0-04 9100 tablet by ity of 00:00: mouth 3 [place] (three) Medical times [place] daily as needed (muscle spasm). meloxicam 2021-08 Yes [id number] 15mg Take 1 Un job[facility] 15 mg 0-04 tablet by ity of tablet 00:00: mouth in [place] the morning. Branch gabapentin 2021-08 Yes [id number] 400mg Take 1 [facility] 400 mg 0-04 9100 capsule by ity of capsule 00:00: mouth in [place] the morning Branch and 1 capsule at noon and 1 capsule in the evening. tiZANidine 2021-08 Yes [id number] 4mg Take 1 [facility] 4 mg tablet 0-04 9100 tablet by ity of 00:00: mouth 3 [place] (three) Medical times [place] daily as needed (muscle spasm). meloxicam 2021-08 Yes [id number] 15mg Take 1 Un job[facility] 15 mg 0-04 tablet by ity of tablet 00:00: mouth in [place] the Medical morning. Branch gabapentin 2021-08 Yes [id number] 400mg Take 1 [facility] 400 mg 0-04 9100 capsule by ity of capsule 00:00: mouth in [place] [address] the Medical morning Branch and 1 capsule at noon and 1 capsule in the evening. tiZANidine 2021-08 Yes [id number] 4mg Take 1 [facility] 4 mg tablet 0-04 9100 tablet by ity of 00:00: mouth 3 [place] (three) Medical times Branch daily as needed (muscle spasm). gabapentin 2021-08 Yes [id number] 400mg Take 1 [facility] 400 mg 0-04 9100 capsule by ity of capsule 00:00: mouth in [place] the Medical morning Branch and 1 capsule at noon and 1 capsule in the evening. tiZANidine 2021-08 Yes [id number] 4mg Take 1 [facility] 4 mg tablet 0-04 9100 tablet by ity of 00:00: mouth 3 (three) Medical times Branch daily as needed (muscle spasm). gabapentin 2021-08 Yes [id number] 400mg Take 1 [facility] 400 mg 0-04 9100 capsule by ity of capsule 00:00: mouth in [place] the Medical morning Branch and 1 capsule at noon and 1 capsule in the evening. tiZANidine 2021-08 Yes [id number] 4mg Take 1 [facility] 4 mg tablet 0-04 9100 tablet by ity of 00:00: mouth [place] (three) Medical times [place] daily as needed (muscle spasm). gabapentin 2021-08 Yes [id number] 400mg Take 1 [facility] 400 mg 0-04 9100 capsule by ity of capsule 00:00: mouth in [place] the Medical morning Branch and 1 capsule at noon and 1 capsule in the evening. tiZANidine 2021-08 Yes [id number] 4mg Take 1 [facility] 4 mg tablet 0-04 9100 tablet by ity of 00:00: mouth [place] (three) Medical times [place] daily as needed (muscle spasm). gabapentin 2021-08 Yes [id number] 400mg Take 1 [facility] 400 mg 0-04 9100 capsule by ity of capsule 00:00: mouth in [place] [address] the Medical morning Branch and 1 capsule at noon and 1 capsule in the evening. tiZANidine 2021-08 Yes [id number] 4mg Take 1 [facility] 4 mg tablet 0-04 9100 tablet by ity of 00:00: mouth 3 [place] (three) Medical times Branch daily as needed (muscle spasm). gabapentin 2021-08 Yes [id number] 400mg Take 1 [facility] 400 mg 0-04 9100 capsule by ity of capsule 00:00: mouth in [place] [address] the Medical morning Branch and 1 capsule at noon and 1 capsule in the evening. tiZANidine 2021-08 Yes [id number] 4mg Take 1 [facility] 4 mg tablet 0-04 9100 tablet by ity of 00:00: mouth 3 (three) Medical times [place] daily as needed (muscle spasm). gabapentin 2021-08 Yes [id number] 400mg Take 1 [facility] 400 mg 0-04 9100 capsule by ity of capsule 00:00: mouth in [place] the Medical morning Branch and 1 capsule at noon and 1 capsule in the evening. tiZANidine 2021-08 Yes [id number] 4mg Take 1 [facility] 4 mg tablet 0-04 9100 tablet by ity of 00:00: mouth 3 (three) Medical times [place] daily as needed (muscle spasm). gabapentin 2021-08 Yes [id number] 400mg Take 1 [facility] 400 mg 0-04 9100 capsule by ity of capsule 00:00: mouth in [place] the Medical morning Branch and 1 capsule at noon and 1 capsule in the evening. tiZANidine 2021-08 Yes [id number] 4mg Take 1 [facility] 4 mg tablet 0-04 9100 tablet by ity of 00:00: mouth 3 (three) Medical times [place] daily as needed (muscle spasm). gabapentin 2021-08 Yes [id number] 400mg Take 1 [facility] 400 mg 0-04 9100 capsule by ity of capsule 00:00: mouth in [place] the Medical morning Branch and 1 capsule at noon and 1 capsule in the evening. tiZANidine 2021-08 Yes [id number] 4mg Take 1 [facility] 4 mg tablet 0-04 9100 tablet by ity of 00:00: mouth 3 (three) Medical times [place] daily as needed (muscle spasm). meloxicam 2021-08 Yes [id number] 15mg Take 1 Un job[facility] 15 mg 0-04 tablet by ity of tablet 00:00: mouth in [place] 00 the Medical morning. Branch gabapentin 2021-08 Yes [id number] 400mg Take 1 [facility] 400 mg 0-04 9100 capsule by ity of capsule 00:00: mouth in [place] the Medical morning Branch and 1 capsule at noon and 1 capsule in the evening. tiZANidine 2021-08 Yes [id number] 4mg Take 1 [facility] 4 mg tablet 0-04 9100 tablet by ity of 00:00: mouth 3 (three) Medical times [place] daily as needed (muscle spasm). meloxicam 2021-08 Yes [id number] 15mg Take 1 Un job[facility] 15 mg 0-04 tablet by ity of tablet 00:00: mouth in [place] the Medical morning. Branch gabapentin 2021-08 Yes [id number] 400mg Take 1 [facility] 400 mg 0-04 9100 capsule by ity of capsule 00:00: mouth in [place] the Medical morning Branch and 1 capsule at noon and 1 capsule in the evening. tiZANidine 2021-08 Yes [id number] 4mg Take 1 [facility] 4 mg tablet 0-04 9100 tablet by ity of 00:00: mouth 3 [place] (three) Medical times [place] daily as needed (muscle spasm). meloxicam 2021-08 Yes [id number] 15mg Take 1 Un [facility] 15 mg 0-04 tablet by ity of tablet 00:00: mouth in [place] the Medical morning. Branch gabapentin 2021-08 Yes [id number] 400mg Take 1 [facility] 400 mg 0-04 9100 capsule by ity of capsule 00:00: mouth in [place] the Medical morning Branch and 1 capsule at noon and 1 capsule in the evening. tiZANidine 2021-08 Yes [id number] 4mg Take 1 [facility] 4 mg tablet 0-04 9100 tablet by ity of 00:00: mouth 3 [place] (three) Medical times [place] daily as needed (muscle spasm). meloxicam 2021-08 Yes [id number] 15mg Take 1 Un [facility] 15 mg 0-04 tablet by ity of tablet 00:00: mouth in [place] the Medical morning. Branch gabapentin 2021-08 Yes [id number] 400mg Take 1 [facility] 400 mg 0-04 9100 capsule by ity of capsule 00:00: mouth in [place] the Medical morning Branch and 1 capsule at noon and 1 capsule in the evening. tiZANidine 2021-08 Yes [id number] 4mg Take 1 [facility] 4 mg tablet 0-04 9100 tablet by ity of 00:00: mouth 3 [place] 00 (three) Medical times Branch daily as needed (muscle spasm). meloxicam 2021-08 Yes [id number] 15mg Take 1 Un [facility] 15 mg 0-04 tablet by ity of tablet 00:00: mouth in [place] the Medical morning. Branch gabapentin 2021-08 Yes [id number] 400mg Take 1 [facility] 400 mg 0-04 9100 capsule by ity of capsule 00:00: mouth in [place] the Medical morning Branch and 1 capsule at noon and 1 capsule in the evening. tiZANidine 2021-08 Yes [id number] 4mg Take 1 [facility] 4 mg tablet 0-04 9100 tablet by ity of 00:00: mouth 3 [place] (three) Medical times [place] daily as needed (muscle spasm). meloxicam 2021-08 Yes [id number] 15mg Take 1 Un [facility] 15 mg 0-04 tablet by ity of tablet 00:00: mouth in [place] the Medical morning. Branch gabapentin 2021-08 Yes [id number] 400mg Take 1 [facility] 400 mg 0-04 9100 capsule by ity of capsule 00:00: mouth in [place] the Medical morning Branch and 1 capsule at noon and 1 capsule in the evening. tiZANidine 2021-08 Yes [id number] 4mg Take 1 [facility] 4 mg tablet 0-04 9100 tablet by ity of 00:00: mouth 3 [place] (three) Medical times [place] daily as needed (muscle spasm). meloxicam 2021-08 Yes [id number] 15mg Take 1 Un job[facility] 15 mg 0-04 tablet by ity of tablet 00:00: mouth in [place] the Medical morning. Branch gabapentin 2021-08 Yes [id number] 400mg Take 1 [facility] 400 mg 0-04 9100 capsule by ity of capsule 00:00: mouth in [place] the Medical morning Branch and 1 capsule at noon and 1 capsule in the evening. tiZANidine 2021-08 Yes [id number] 4mg Take 1 [facility] 4 mg tablet 0-04 9100 tablet by ity of 00:00: mouth 3 [place] (three) Medical times [place] daily as needed (muscle spasm). meloxicam 2021-08 Yes [id number] 15mg Take 1 Un [facility] 15 mg 0-04 tablet by ity of tablet 00:00: mouth in [place] the Medical morning. Branch gabapentin 2021-08 Yes [id number] 400mg Take 1 [facility] 400 mg 0-04 9100 capsule by ity of capsule 00:00: mouth in [place] the Medical morning Branch and 1 capsule at noon and 1 capsule in the evening. tiZANidine 2021-08 Yes [id number] 4mg Take 1 [facility] 4 mg tablet 0-04 9100 tablet by ity of 00:00: mouth 3 [place] (three) Medical times [place] daily as needed (muscle spasm). meloxicam 2021-08 Yes [id number] 15mg Take 1 Un [facility] 15 mg 0-04 tablet by ity of tablet 00:00: mouth in [place] the Medical morning. Branch gabapentin 2021-08 Yes [id number] 400mg Take 1 [facility] 400 mg 0-04 9100 capsule by ity of capsule 00:00: mouth in [place] the Medical morning Branch and 1 capsule at noon and 1 capsule in the evening. tiZANidine 2021-08 Yes [id number] 4mg Take 1 [facility] 4 mg tablet 0-04 9100 tablet by ity of 00:00: mouth 3 [place] (three) Medical times [place] daily as needed (muscle spasm). meloxicam 2021-08 Yes [id number] 15mg Take 1 Un [facility] 15 mg 0-04 tablet by ity of tablet 00:00: mouth in [place] the Medical morning. Branch gabapentin 2021-08 Yes [id number] 400mg Take 1 [facility] 400 mg 0-04 9100 capsule by ity of capsule 00:00: mouth in [place] the Medical morning Branch and 1 capsule at noon and 1 capsule in the evening. tiZANidine 2021-08 Yes [id number] 4mg Take 1 [facility] 4 mg tablet 0-04 9100 tablet by ity of 00:00: mouth 3 [place] (three) Medical times [place] daily as needed (muscle spasm). meloxicam 2021-08 Yes [id number] 15mg Take 1 Un [facility] 15 mg 0-04 tablet by ity of tablet 00:00: mouth in [place] the Medical morning. Branch gabapentin 2021-08 Yes [id number] 400mg Take 1 [facility] 400 mg 0-04 9100 capsule by ity of capsule 00:00: mouth in [place] the Medical morning Branch and 1 capsule at noon and 1 capsule in the evening. tiZANidine 2021-08 Yes [id number] 4mg Take 1 [facility] 4 mg tablet 0-04 9100 tablet by ity of 00:00: mouth 3 [place] (three) Medical times Branch daily as needed (muscle spasm). meloxicam 2021-08 Yes [id number] 15mg Take 1 Un [facility] 15 mg 0-04 tablet by ity of tablet 00:00: mouth in [place] 00 the Medical morning. Branch gabapentin 2021-08 Yes [id number] 400mg Take 1 [facility] 400 mg 0-04 9100 capsule by ity of capsule 00:00: mouth in [place] the Medical morning Branch and 1 capsule at noon and 1 capsule in the evening. tiZANidine 2021-08 Yes [id number] 4mg Take 1 [facility] 4 mg tablet 0-04 9100 tablet by ity of 00:00: mouth 3 [place] (three) Medical times Branch daily as needed (muscle spasm). meloxicam 2021-08 Yes [id number] 15mg Take 1 Un [facility] 15 mg 0-04 tablet by ity of tablet 00:00: mouth in [place] the Medical morning. Branch gabapentin 2021-08 Yes [id number] 400mg Take 1 [facility] 400 mg 0-04 9100 capsule by ity of capsule 00:00: mouth in [place] the Medical morning Branch and 1 capsule at noon and 1 capsule in the evening. tiZANidine 2021-08 Yes [id number] 4mg Take 1 [facility] 4 mg tablet 0-04 9100 tablet by ity of 00:00: mouth 3 [place] (three) Medical times [place] daily as needed (muscle spasm). meloxicam 2021-08 Yes [id number] 15mg Take 1 Un [facility] 15 mg 0-04 tablet by ity of tablet 00:00: mouth in [place] the Medical morning. Branch gabapentin 2021-08 Yes [id number] 400mg Take 1 [facility] 400 mg 0-04 9100 capsule by ity of capsule 00:00: mouth in [place] the Medical morning Branch and 1 capsule at noon and 1 capsule in the evening. tiZANidine 2021-08 Yes [id number] 4mg Take 1 [facility] 4 mg tablet 0-04 9100 tablet by ity of 00:00: mouth 3 [place] 00 (three) Medical times Branch daily as needed (muscle spasm). meloxicam 2021-08 Yes [id number] 15mg Take 1 [facility] 15 mg 0-04 tablet by ity of tablet 00:00: mouth in [place] 00 the Medical morning. Branch gabapentin 2021-08 Yes [id number] 400mg Take 1 [facility] 400 mg 0-04 9100 capsule by ity of capsule 00:00: mouth in [place] the Medical morning Branch and 1 capsule at noon and 1 capsule in the evening. tiZANidine 2021-08 Yes [id number] 4mg Take 1 [facility] 4 mg tablet 0-04 9100 tablet by ity of 00:00: mouth 3 [place] (three) Medical times Branch daily as needed (muscle spasm). meloxicam 2021-08 Yes [id number] 15mg Take 1 [facility] 15 mg 0-04 tablet by ity of tablet 00:00: mouth in [place] 00 the Medical morning. Branch gabapentin 2021-08 Yes [id number] 400mg Take 1 [facility] 400 mg 0-04 9100 capsule by ity of capsule 00:00: mouth in [place] the Medical morning Branch and 1 capsule at noon and 1 capsule in the evening. tiZANidine 2021-08 Yes [id number] 4mg Take 1 [facility] 4 mg tablet 0-04 9100 tablet by ity of 00:00: mouth 3 [place] (three) Medical times [place] daily as needed (muscle spasm). meloxicam 2021-08 Yes [id number] 15mg Take 1 Un [facility] 15 mg 0-04 tablet by it[facility] of tablet 00:00: mouth in [place] the Medical morning. Branch gabapentin 2021-08 Yes [id number] 400mg Take 1 [facility] 400 mg 0-04 9100 capsule by it[facility] of capsule 00:00: mouth in [place] the Medical morning Branch and 1 capsule at noon and 1 capsule in the evening. tiZANidine 2021-08 Yes [id number] 4mg Take 1 [facility] 4 mg tablet 0-04 9100 tablet by ity of 00:00: mouth 3 [place] 00 (three) Medical times [place] daily as needed (muscle spasm). meloxicam 2021-08 Yes [id number] 15mg Take 1 [facility] 15 mg 0-04 tablet by it[facility] of tablet 00:00: mouth in [place] the Medical morning. Branch gabapentin 2021-08 Yes [id number] 400mg Take 1 [facility] 400 mg 0-04 9100 capsule by [facility] of capsule 00:00: mouth in [place] the Medical morning Branch and 1 capsule at noon and 1 capsule in the evening. tiZANidine 2021-08 Yes [id number] 4mg Take 1 [facility] 4 mg tablet 0-04 9100 tablet by ity of 00:00: mouth 3 (three) Medical times Branch daily as needed (muscle spasm). meloxicam 2021-08 Yes [id number] 15mg Take 1 [facility] 15 mg 0-04 tablet by [facility] of tablet 00:00: mouth in [place] 00 the Medical morning. Branch gabapentin 2021-08 Yes [id number] 400mg Take 1 [facility] 400 mg 0-04 9100 capsule by ity of capsule 00:00: mouth in [place] 00 the Medical morning Branch and 1 capsule at noon and 1 capsule in the evening. tiZANidine 2021-08 Yes [id number] 4mg Take 1 [facility] 4 mg tablet 0-04 9100 tablet by ity of 00:00: mouth 3 [place] (three) Medical times Branch daily as needed (muscle spasm). meloxicam 2021-08 Yes [id number] 15mg Take 1 [facility] 15 mg 0-04 tablet by [facility] of tablet 00:00: mouth in [place] the Medical morning. Branch gabapentin 2021-08 Yes [id number] 400mg Take 1 [facility] 400 mg 0-04 9100 capsule by it[facility] of capsule 00:00: mouth in [place] the Medical morning Branch and 1 capsule at noon and 1 capsule in the evening. tiZANidine 2021-08 Yes [id number] 4mg Take 1 [facility] 4 mg tablet 0-04 9100 tablet by [facility] of 00:00: mouth 3 [place] (three) Medical times Branch daily as needed (muscle spasm). meloxicam 2021-08 Yes [id number] 15mg Take 1 [facility] 15 mg 0-04 tablet by [facility] of tablet 00:00: mouth in [place] the Medical morning. Branch gabapentin 2021-08 Yes [id number] 400mg Take 1 [facility] 400 mg 0-04 9100 capsule by it[facility] of capsule 00:00: mouth in [place] the Medical morning Branch and 1 capsule at noon and 1 capsule in the evening. tiZANidine 2021-08 Yes [id number] 4mg Take 1 [facility] 4 mg tablet 0-04 9100 tablet by ity of 00:00: mouth 3 [place] 00 (three) Medical times Branch daily as needed (muscle spasm). meloxicam 2021-08 Yes [id number] 15mg Take 1 [facility] 15 mg 0-04 tablet by [facility] of tablet 00:00: mouth in [place] the Medical morning. Branch gabapentin 2021-08 Yes [id number] 400mg Take 1 [facility] 400 mg 0-04 9100 capsule by [facility] of capsule 00:00: mouth in [place] the Medical morning Branch and 1 capsule at noon and 1 capsule in the evening. tiZANidine 2021-08 Yes [id number] 4mg Take 1 [facility] 4 mg tablet 0-04 9100 tablet by [facility] of 00:00: mouth 3 [place] (three) Medical times Branch daily as needed (muscle spasm). meloxicam 2021-08 Yes [id number] 15mg Take 1 [facility] 15 mg 0-04 tablet by [facility] of tablet 00:00: mouth in [place] the Medical morning. Branch gabapentin 2021-08 Yes [id number] 400mg Take 1 [facility] 400 mg 0-04 9100 capsule by it[facility] of capsule 00:00: mouth in [place] the Medical morning Branch and 1 capsule at noon and 1 capsule in the evening. tiZANidine 2021-08 Yes [id number] 4mg Take 1 [facility] 4 mg tablet 0-04 9100 tablet by ity of 00:00: mouth 3 [place] (three) Medical times [place] daily as needed (muscle spasm). meloxicam 2021-08 Yes [id number] 15mg Take 1 [facility] 15 mg 0-04 tablet by [facility] of tablet 00:00: mouth in [place] the Medical morning. Branch gabapentin 2021-08 Yes [id number] 400mg Take 1 [facility] 400 mg 0-04 9100 capsule by it[facility] of capsule 00:00: mouth in [place] the Medical morning Branch and 1 capsule at noon and 1 capsule in the evening. tiZANidine 2021-08 Yes [id number] 4mg Take 1 [facility] 4 mg tablet 0-04 9100 tablet by it[facility] of 00:00: mouth 3 [place] 00 (three) Medical times Branch daily as needed (muscle spasm). meloxicam 2021-08 Yes [id number] 15mg Take 1 [facility] 15 mg 0-04 tablet by it[facility] of tablet 00:00: mouth in [place] the Medical morning. Branch gabapentin 2021-08 Yes [id number] 400mg Take 1 [facility] 400 mg 0-04 9100 capsule by ity of capsule 00:00: mouth in [place] the Medical morning Branch and 1 capsule at noon and 1 capsule in the evening. tiZANidine 2021-08 Yes [id number] 4mg Take 1 [facility] 4 mg tablet 0-04 9100 tablet by ity of 00:00: mouth 3 [place] (three) Medical times [place] daily as needed (muscle spasm). meloxicam 2021-08 Yes [id number] 15mg Take 1 [facility] 15 mg 0-04 tablet by it[facility] of tablet 00:00: mouth in [place] the Medical morning. Branch gabapentin 2021-08 Yes [id number] 400mg Take 1 [facility] 400 mg 0-04 9100 capsule by it[facility] of capsule 00:00: mouth in [place] the Medical morning Branch and 1 capsule at noon and 1 capsule in the evening. tiZANidine 2021-08 Yes [id number] 4mg Take 1 [facility] 4 mg tablet 0-04 9100 tablet by ity of 00:00: mouth 3 [place] [address] (three) Medical times [place] daily as needed (muscle spasm). meloxicam 2021-08 Yes [id number] 15mg Take 1 [facility] 15 mg 0-04 tablet by it[facility] of tablet 00:00: mouth in [place] the Medical morning. Branch gabapentin 2021-08 Yes [id number] 400mg Take 1 [facility] 400 mg 0-04 9100 capsule by it[facility] of capsule 00:00: mouth in [place] the Medical morning Branch and 1 capsule at noon and 1 capsule in the evening. tiZANidine 2021-08 Yes [id number] 4mg Take 1 [facility] 4 mg tablet 0-04 9100 tablet by ity of 00:00: mouth 3 [place] [address] (three) Medical times [place] daily as needed (muscle spasm). meloxicam 2021-08 Yes [id number] 15mg Take 1 [facility] 15 mg 0-04 tablet by it[facility] of tablet 00:00: mouth in [place] the Medical morning. Branch gabapentin 2021-08 Yes [id number] 400mg Take 1 [facility] 400 mg 0-04 9100 capsule by it[facility] of capsule 00:00: mouth in [place] [address] the Medical morning Branch and 1 capsule at noon and 1 capsule in the evening. tiZANidine 2021-08 Yes [id number] 4mg Take 1 [facility] 4 mg tablet 0-04 9100 tablet by it[facility] of 00:00: mouth 3 (three) Medical times Branch daily as needed (muscle spasm). meloxicam 2021-08 Yes [id number] 15mg Take 1 [facility] 15 mg 0-04 tablet by [facility] of tablet 00:00: mouth in [place] the Medical morning. Branch gabapentin 2021-08 Yes [id number] 400mg Take 1 [facility] 400 mg 0-04 9100 capsule by it[facility] of capsule 00:00: mouth in [place] the Medical morning Branch and 1 capsule at noon and 1 capsule in the evening. tiZANidine 2021-08 Yes [id number] 4mg Take 1 [facility] 4 mg tablet 0-04 9100 tablet by it[facility] of 00:00: mouth 3 [place] (three) Medical times Branch daily as needed (muscle spasm). meloxicam 2021-08 Yes [id number] 15mg Take 1 [facility] 15 mg 0-04 tablet by [facility] of tablet 00:00: mouth in [place] the Medical morning. Branch gabapentin 2021-08 Yes [id number] 400mg Take 1 [facility] 400 mg 0-04 9100 capsule by it[facility] of capsule 00:00: mouth in [place] the Medical morning Branch and 1 capsule at noon and 1 capsule in the evening. tiZANidine 2021-08 Yes [id number] 4mg Take 1 [facility] 4 mg tablet 0-04 9100 tablet by it[facility] of 00:00: mouth 3 (three) Medical times [place] daily as needed (muscle spasm). meloxicam 2021-08 Yes [id number] 15mg Take 1 [facility] 15 mg 0-04 tablet by [facility] of tablet 00:00: mouth in [place] the Medical morning. Branch gabapentin 2021-08 Yes [id number] 400mg Take 1 [facility] 400 mg 0-04 9100 capsule by it[facility] of capsule 00:00: mouth in [place] the Medical morning Branch and 1 capsule at noon and 1 capsule in the evening. tiZANidine 2021-08 Yes [id number] 4mg Take 1 [facility] 4 mg tablet 0-04 9100 tablet by it[facility] of 00:00: mouth 3 [place] (three) Medical times Branch daily as needed (muscle spasm). meloxicam 2021-08 Yes [id number] 15mg Take 1 [facility] 15 mg 0-04 tablet by [facility] of tablet 00:00: mouth in [place] the Medical morning. Branch gabapentin 2021-08 Yes [id number] 400mg Take 1 [facility] 400 mg 0-04 9100 capsule by it[facility] of capsule 00:00: mouth in [place] the Medical morning Branch and 1 capsule at noon and 1 capsule in the evening. tiZANidine 2021-08 Yes [id number] 4mg Take 1 [facility] 4 mg tablet 0-04 9100 tablet by it[facility] of 00:00: mouth 3 [place] (three) Medical times [place] daily as needed (muscle spasm). meloxicam 2021-08 Yes [id number] 15mg Take 1 [facility] 15 mg 0-04 tablet by it[facility] of tablet 00:00: mouth in [place] the Medical morning. Branch gabapentin 2021-08 Yes [id number] 400mg Take 1 [facility] 400 mg 0-04 9100 capsule by it[facility] of capsule 00:00: mouth in [place] the morning Branch and 1 capsule at noon and 1 capsule in the evening. tiZANidine 2021-08 Yes [id number] 4mg Take 1 [facility] 4 mg tablet 0-04 9100 tablet by ity of 00:00: mouth 3 [place] (three) [facility] times [place] daily as needed (muscle spasm). meloxicam 2021-08 Yes [id number] 15mg Take 1 [facility] 15 mg 0-04 tablet by ity of tablet 00:00: mouth in [place] the morning. Branch gabapentin 2021-08 Yes [id number] 400mg Take 1 [facility] 400 mg 0-04 9100 capsule by ity of capsule 00:00: mouth in [place] the morning Branch and 1 capsule at noon and 1 capsule in the evening. tiZANidine 2021-08 Yes [id number] 4mg Take 1 [facility] 4 mg tablet 0-04 9100 tablet by ity of 00:00: mouth 3 [place] [address] (three) Medical times [place] daily as needed (muscle spasm). meloxicam 2021-08 Yes [id number] 15mg Take 1 [facility] 15 mg 0-04 tablet by ity of tablet 00:00: mouth in [place] the Medical morning. Branch gabapentin 2021-08 Yes [id number] 400mg Take 1 [facility] 400 mg 0-04 9100 capsule by ity of capsule 00:00: mouth in [place] the Medical morning Branch and 1 capsule at noon and 1 capsule in the evening. tiZANidine 2021-08 Yes [id number] 4mg Take 1 [facility] 4 mg tablet 0-04 9100 tablet by ity of 00:00: mouth 3 (three) Medical times Branch daily as needed (muscle spasm). meloxicam 2021-08 Yes [id number] 15mg Take 1 [facility] 15 mg 0-04 tablet by it[facility] of tablet 00:00: mouth in [place] the Medical morning. Branch gabapentin 2021-08 Yes [id number] 400mg Take 1 [facility] 400 mg 0-04 9100 capsule by ity of capsule 00:00: mouth in [place] the Medical morning Branch and 1 capsule at noon and 1 capsule in the evening. tiZANidine 2021-08 Yes [id number] 4mg Take 1 [facility] 4 mg tablet 0-04 9100 tablet by ity of 00:00: mouth 3 [place] (three) Medical times [place] daily as needed (muscle spasm). meloxicam 2021-08 Yes [id number] 15mg Take 1 [facility] 15 mg 0-04 tablet by ity of tablet 00:00: mouth in [place] the Medical morning. Branch gabapentin 2021-08 Yes [id number] 400mg Take 1 [facility] 400 mg 0-04 9100 capsule by ity of capsule 00:00: mouth in [place] the Medical morning Branch and 1 capsule at noon and 1 capsule in the evening. tiZANidine 2021-08 Yes [id number] 4mg Take 1 [facility] 4 mg tablet 0-04 9100 tablet by ity of 00:00: mouth 3 [place] (three) Medical times Branch daily as needed (muscle spasm). meloxicam 2021-08 Yes [id number] 15mg Take 1 [facility] 15 mg 0-04 tablet by ity of tablet 00:00: mouth in [place] the Medical morning. Branch gabapentin 2021-08 Yes [id number] 400mg Take 1 [facility] 400 mg 0-04 9100 capsule by ity of capsule 00:00: mouth in [place] the Medical morning Branch and 1 capsule at noon and 1 capsule in the evening. tiZANidine 2021-08 Yes [id number] 4mg Take 1 [facility] 4 mg tablet 0-04 9100 tablet by ity of 00:00: mouth 3 [place] (three) Medical times Branch daily as needed (muscle spasm). meloxicam 2021-08 Yes [id number] 15mg Take 1 [facility] 15 mg 0-04 tablet by ity of tablet 00:00: mouth in [place] the Medical morning. Branch gabapentin 2021-08 Yes [id number] 400mg Take 1 [facility] 400 mg 0-04 9100 capsule by ity of capsule 00:00: mouth in [place] the Medical morning Branch and 1 capsule at noon and 1 capsule in the evening. tiZANidine 2021-08 Yes [id number] 4mg Take 1 [facility] 4 mg tablet 0-04 9100 tablet by ity of 00:00: mouth 3 [place] (three) Medical times Branch daily as needed (muscle spasm). meloxicam 2021-08 Yes [id number] 15mg Take 1 [facility] 15 mg 0-04 tablet by ity of tablet 00:00: mouth in [place] the Medical morning. Branch gabapentin 2021-08 Yes [id number] 400mg Take 1 [facility] 400 mg 0-04 9100 capsule by ity of capsule 00:00: mouth in [place] the Medical morning Branch and 1 capsule at noon and 1 capsule in the evening. tiZANidine 2021-08 Yes [id number] 4mg Take 1 [facility] 4 mg tablet 0-04 9100 tablet by ity of 00:00: mouth 3 [place] (three) Medical times [place] daily as needed (muscle spasm). meloxicam 2021-08 Yes [id number] 15mg Take 1 [facility] 15 mg 0-04 tablet by ity of tablet 00:00: mouth in [place] the Medical morning. Branch gabapentin 2021-08 Yes [id number] 400mg Take 1 [facility] 400 mg 0-04 9100 capsule by ity of capsule 00:00: mouth in [place] the Medical morning Branch and 1 capsule at noon and 1 capsule in the evening. tiZANidine 2021-08 Yes [id number] 4mg Take 1 [facility] 4 mg tablet 0-04 9100 tablet by ity of 00:00: mouth 3 [place] 00 (three) Medical times Branch daily as needed (muscle spasm). meloxicam 2021-08 Yes [id number] 15mg Take 1 [facility] 15 mg 0-04 tablet by ity of tablet 00:00: mouth in [place] the Medical morning. Branch gabapentin 2021-08 Yes [id number] 400mg Take 1 [facility] 400 mg 0-04 9100 capsule by ity of capsule 00:00: mouth in [place] the Medical morning Branch and 1 capsule at noon and 1 capsule in the evening. tiZANidine 2021-08 Yes [id number] 4mg Take 1 [facility] 4 mg tablet 0-04 9100 tablet by ity of 00:00: mouth 3 [place] (three) Medical times [place] daily as needed (muscle spasm). meloxicam 2021-08 Yes [id number] 15mg Take 1 Un [facility] 15 mg 0-04 tablet by ity of tablet 00:00: mouth in [place] the Medical morning. Branch gabapentin 2021-08 Yes [id number] 400mg Take 1 [facility] 400 mg 0-04 9100 capsule by ity of capsule 00:00: mouth in [place] the Medical morning Branch and 1 capsule at noon and 1 capsule in the evening. tiZANidine 2021-08 Yes [id number] 4mg Take 1 [facility] 4 mg tablet 0-04 9100 tablet by ity of 00:00: mouth 3 [place] (three) Medical times [place] daily as needed (muscle spasm). meloxicam 2021-08 Yes [id number] 15mg Take 1 [facility] 15 mg 0-04 tablet by ity of tablet 00:00: mouth in [place] the Medical morning. Branch gabapentin 2021-08 Yes [id number] 400mg Take 1 [facility] 400 mg 0-04 9100 capsule by ity of capsule 00:00: mouth in [place] the Medical morning Branch and 1 capsule at noon and 1 capsule in the evening. tiZANidine 2021-08 Yes [id number] 4mg Take 1 [facility] 4 mg tablet 0-04 9100 tablet by ity of 00:00: mouth 3 [place] (three) Medical times [place] daily as needed (muscle spasm). meloxicam 2021-08 Yes [id number] 15mg Take 1 Un [facility] 15 mg 0-04 tablet by ity of tablet 00:00: mouth in [place] the Medical morning. Branch gabapentin 2021-08 Yes [id number] 400mg Take 1 [facility] 400 mg 0-04 9100 capsule by ity of capsule 00:00: mouth in [place] the Medical morning Branch and 1 capsule at noon and 1 capsule in the evening. tiZANidine 2021-08 Yes [id number] 4mg Take 1 [facility] 4 mg tablet 0-04 9100 tablet by ity of 00:00: mouth 3 [place] 00 (three) Medical times [place] daily as needed (muscle spasm). meloxicam 2021-08 Yes [id number] 15mg Take 1 Un [facility] 15 mg 0-04 tablet by ity of tablet 00:00: mouth in [place] 00 the Medical morning. Branch gabapentin 2021-08 Yes [id number] 400mg Take 1 [facility] 400 mg 0-04 9100 capsule by ity of capsule 00:00: mouth in [place] 00 the Medical morning Branch and 1 capsule at noon and 1 capsule in the evening. tiZANidine 2021-08 Yes [id number] 4mg Take 1 [facility] 4 mg tablet 0-04 9100 tablet by ity of 00:00: mouth 3 [place] 00 (three) Medical [facility] daily as needed (muscle spasm). meloxicam 2021-08 Yes [id number] 15mg Take 1 Un job[facility] 15 mg 0-04 tablet by ity of tablet 00:00: mouth in [place] 00 the Medical morning. Branch meloxicam 2021-08- No [id number] 15mg Take 1 U nivers 15 mg 0-04 02-03 tablet by ity of tablet 00:00: 00:00 mouth in [place] 00 :00 the Medical morning. Branch meloxicam 2021-08- No [id number] 15mg Take 1 U nivers 15 mg 0-04 02-03 tablet by ity of tablet 00:00: 00:00 mouth in [place] 00 :00 the Medical morning. [place] metformin Yes [id number] TAKE 2 U nivers ER 500 mg 9-09 TABLETS BY ity of 24 hr 00:00: MOUTH ONCE [place] tablet 00 DAILY IN [facility] MORNING AND 3 ONCE DAILY IN THE EVENING. dulaglutide Yes [id number] .75mg inject 1 [facility] (TRULICITY) 9- Pen under ity of 0.75 mg/0.5 00:00: the skin [place] mL PnIj 00 weekly. [facility] metformin Yes [id number] TAKE 2 U nivers ER 500 mg 9-09 TABLETS BY ity of 24 hr 00:00: MOUTH ONCE [place] tablet 00 DAILY IN [facility] MORNING AND 3 ONCE DAILY IN THE EVENING. dulaglutide 2022-0 Yes [id number] .75mg inject 1 [facility] (TRULICITY) 9-09 Pen under ity of 0.75 mg/0.5 00:00: the skin [place] mL PnIj 00 weekly. [facility] metformin Yes [id number] TAKE 2 U nivers ER 500 mg 9-09 TABLETS BY ity of 24 hr 00:00: MOUTH ONCE [place] tablet 00 DAILY IN [facility] MORNING AND 3 ONCE DAILY IN THE EVENING. dulaglutide Yes [id number] .75mg inject 1 [facility] (TRULICITY) 9-09 Pen under ity of 0.75 mg/0.5 00:00: the skin [place] mL PnIj 00 weekly. [facility] metformin Yes [id number] TAKE 2 U nivers ER 500 mg 9-09 TABLETS BY ity of 24 hr 00:00: MOUTH ONCE [place] tablet 00 DAILY IN [facility] MORNING AND 3 ONCE DAILY IN THE EVENING. dulaglutide Yes [id number] .75mg inject 1 [facility] (TRULICITY) 9-09 Pen under ity of 0.75 mg/0.5 00:00: the skin [place] mL PnIj 00 weekly. [facility] metformin Yes [id number] TAKE 2 U nivers ER 500 mg 9-09 TABLETS BY ity of 24 hr 00:00: MOUTH ONCE [place] tablet 00 DAILY IN [facility] MORNING AND 3 ONCE DAILY IN THE EVENING. hydrOXYzine Yes [id number] 25mg Take 1 [facility] 25 mg 9-09 tablet by ity of tablet 00:00: mouth [place] 00 every 8 [facility] (eight) [place] hours as needed for Itching. dulaglutide Yes [id number] .75mg inject 1 [facility] (TRULICITY) 9-09 Pen under ity of 0.75 mg/0.5 00:00: the skin [place] mL Pn[place]j 00 weekly. [facility] metformin 0 Yes [id number] TAKE 2 U nivers ER 500 mg 9-09 TABLETS BY ity of 24 hr 00:00: MOUTH ONCE [place] tablet 00 DAILY IN [facility] MORNING AND 3 ONCE DAILY IN THE EVENING. hydrOXYzine 0 Yes [id number] 25mg Take 1 [facility] 25 mg 9-09 tablet by ity of tablet 00:00: mouth [place] 00 every 8 Medical (eight) Branch hours as needed for Itching. dulaglutide 2021-0 Yes [id number] .75mg inject 1 [facility] (TRULICITY) 9-09 Pen under ity of 0.75 mg/0.5 00:00: the skin [place] mL PnIj 00 weekly. [facility] metformin 0 Yes [id number] TAKE 2 U nivers ER 500 mg 9-09 TABLETS BY ity of 24 hr 00:00: MOUTH ONCE [place] tablet 00 DAILY IN [facility] MORNING AND 3 ONCE DAILY IN THE EVENING. hydrOXYzine 2021-0 Yes [id number] 25mg Take 1 [facility] 25 mg 9-09 tablet by ity of tablet 00:00: mouth [place] 00 every 8 Medical (eight) Branch hours as needed for Itching. dulaglutide 2021-0 Yes [id number] .75mg inject 1 [facility] (TRULICITY) 9-09 Pen under ity of 0.75 mg/0.5 00:00: the skin [place] mL PnIj 00 weekly. [facility] metformin 0 Yes [id number] TAKE 2 U nivers ER 500 mg 9-09 TABLETS BY ity of 24 hr 00:00: MOUTH ONCE [place] tablet 00 DAILY IN [facility] MORNING AND 3 ONCE DAILY IN THE EVENING. hydrOXYzine 2021-0 Yes [id number] 25mg Take 1 [facility] 25 mg 9-09 tablet by ity of tablet 00:00: mouth [place] 00 every 8 Medical (eight) Branch hours as needed for Itching. dulaglutide 2021-0 Yes [id number] .75mg inject 1 [facility] (TRULICITY) 9-09 Pen under ity of 0.75 mg/0.5 00:00: the skin [place] mL PnIj 00 weekly. [facility] metformin 0 Yes [id number] TAKE 2 U nivers ER 500 mg 9-09 TABLETS BY ity of 24 hr 00:00: MOUTH ONCE [place] tablet 00 DAILY IN [facility] MORNING AND 3 ONCE DAILY IN THE EVENING. hydrOXYzine 2021-0 Yes [id number] 25mg Take 1 [facility] 25 mg 9-09 tablet by ity of tablet 00:00: mouth [place] 00 every 8 Medical (eight) Branch hours as needed for Itching. dulaglutide 2021-0 Yes [id number] .75mg inject 1 [facility] (TRULICITY) 9-09 Pen under ity of 0.75 mg/0.5 00:00: the skin [place] mL PnIj 00 weekly. [facility] metformin 0 Yes [id number] TAKE 2 U nivers ER 500 mg 9-09 TABLETS BY ity of 24 hr 00:00: MOUTH ONCE [place] tablet 00 DAILY IN [facility] MORNING AND 3 ONCE DAILY IN THE EVENING. hydrOXYzine 2021-0 Yes [id number] 25mg Take 1 [facility] 25 mg 9-09 tablet by ity of tablet 00:00: mouth [place] 00 every 8 Medical (eight) Branch hours as needed for Itching. dulaglutide 0 Yes [id number] .75mg inject 1 [facility] (TRULICITY) 9-09 Pen under ity of 0.75 mg/0.5 00:00: the skin [place] mL PnIj 00 weekly. [facility] metformin Yes [id number] TAKE 2 U nivers ER 500 mg 9-09 TABLETS BY ity of 24 hr 00:00: MOUTH ONCE [place] tablet 00 DAILY IN [facility] MORNING AND 3 ONCE DAILY IN THE EVENING. hydrOXYzine 2021-0 Yes [id number] 25mg Take 1 [facility] 25 mg 9-09 tablet by ity of tablet 00:00: mouth [place] 00 every 8 Medical (eight) Branch hours as needed for Itching. dulaglutide 0 Yes [id number] .75mg inject 1 [facility] (TRULICITY) 9-09 Pen under ity of 0.75 mg/0.5 00:00: the skin [place] mL PnI[place] 00 weekly. [facility] metformin 2021-0 Yes [id number] TAKE 2 U nivers ER 500 mg 9-09 TABLETS BY ity of 24 hr 00:00: MOUTH ONCE [place] tablet 00 DAILY IN [facility] MORNING AND 3 ONCE DAILY IN THE EVENING. hydrOXYzine 2021-0 Yes [id number] 25mg Take 1 [facility] 25 mg 9-09 tablet by ity of tablet 00:00: mouth [place] 00 every 8 Medical (eight) Branch hours as needed for Itching. dulaglutide 2021-0 Yes [id number] .75mg inject 1 [facility] (TRULICITY) 9-09 Pen under ity of 0.75 mg/0.5 00:00: the skin [place] mL PnIj 00 weekly. [facility] metformin 2021-0 Yes [id number] TAKE 2 U nivers ER 500 mg 9-09 TABLETS BY ity of 24 hr 00:00: MOUTH ONCE [place] tablet 00 DAILY IN [facility] MORNING AND 3 ONCE DAILY IN THE EVENING. hydrOXYzine 2021-0 Yes [id number] 25mg Take 1 [facility] 25 mg 9-09 tablet by ity of tablet 00:00: mouth [place] 00 every 8 Medical (eight) Branch hours as needed for Itching. dulaglutide 2021-0 Yes [id number] .75mg inject 1 [facility] (TRULICITY) 9-09 Pen under ity of 0.75 mg/0.5 00:00: the skin [place] mL PnIj 00 weekly. [facility] Branch metformin 2021-0 Yes [id number] TAKE 2 U nivers ER 500 mg 9-09 TABLETS BY ity of 24 hr 00:00: MOUTH ONCE [place] tablet 00 DAILY IN [facility] MORNING AND 3 ONCE DAILY IN THE EVENING. hydrOXYzine 2021-0 Yes [id number] 25mg Take 1 [facility] 25 mg 9-09 tablet by ity of tablet 00:00: mouth [place] 00 every 8 [facility] (eight) Branch hours as needed for Itching. dulaglutide 2021-0 Yes [id number] .75mg inject 1 [facility] (TRULICITY) 9-09 Pen under ity of 0.75 mg/0.5 00:00: the skin [place] mL PnIj 00 weekly. [facility] metformin 2021-0 Yes [id number] TAKE 2 U nivers ER 500 mg 9-09 TABLETS BY ity of 24 hr 00:00: MOUTH ONCE [place] tablet 00 DAILY IN [facility] MORNING AND 3 ONCE DAILY IN THE EVENING. hydrOXYzine 2021-0 Yes [id number] 25mg Take 1 [facility] 25 mg 9-09 tablet by ity of tablet 00:00: mouth [place] 00 every 8 Medical (eight) Branch hours as needed for Itching. dulaglutide 2021-0 Yes [id number] .75mg inject 1 [facility] (TRULICITY) 9-09 Pen under ity of 0.75 mg/0.5 00:00: the skin [place] mL PnIj 00 weekly. [facility] metformin 2021-0 Yes [id number] TAKE 2 U nivers ER 500 mg 9-09 TABLETS BY ity of 24 hr 00:00: MOUTH ONCE [place] tablet 00 DAILY IN [facility] MORNING AND 3 ONCE DAILY IN THE EVENING. hydrOXYzine 2021-0 Yes [id number] 25mg Take 1 [facility] 25 mg 9-09 tablet by ity of tablet 00:00: mouth [place] 00 every 8 Medical (eight) Branch hours as needed for Itching. dulaglutide 2021-0 Yes [id number] .75mg inject 1 [facility] (TRULICITY) 9-09 Pen under ity of 0.75 mg/0.5 00:00: the skin [place] mL PnIj 00 weekly. [facility] Branch metformin 2021-0 Yes [id number] TAKE 2 U nivers ER 500 mg 9-09 TABLETS BY ity of 24 hr 00:00: MOUTH ONCE [place] tablet 00 DAILY IN [facility] MORNING AND 3 ONCE DAILY IN THE EVENING. hydrOXYzine 2021-0 Yes [id number] 25mg Take 1 [facility] 25 mg 9-09 tablet by ity of tablet 00:00: mouth [place] 00 every 8 [facility] (eight) Branch hours as needed for Itching. dulaglutide 2021-0 Yes [id number] .75mg inject 1 [facility] (TRULICITY) 9-09 Pen under ity of 0.75 mg/0.5 00:00: the skin [place] mL PnIj 00 weekly. [facility] metformin 2021-0 Yes [id number] TAKE 2 U nivers ER 500 mg 9-09 TABLETS BY ity of 24 hr 00:00: MOUTH ONCE [place] tablet 00 DAILY IN [facility] MORNING AND 3 ONCE DAILY IN THE EVENING. hydrOXYzine 2021-0 Yes [id number] 25mg Take 1 [facility] 25 mg 9-09 tablet by ity of tablet 00:00: mouth [place] 00 every 8 [facility] (eight) Branch hours as needed for Itching. dulaglutide 2021-0 Yes [id number] .75mg inject 1 [facility] (TRULICITY) 9-09 Pen under ity of 0.75 mg/0.5 00:00: the skin [place] mL PnIj 00 weekly. [facility] metformin 2021-0 Yes [id number] TAKE 2 U nivers ER 500 mg 9-09 TABLETS BY ity of 24 hr 00:00: MOUTH ONCE [place] tablet 00 DAILY IN [facility] MORNING AND 3 ONCE DAILY IN THE EVENING. hydrOXYzine 2021-0 Yes [id number] 25mg Take 1 [facility] 25 mg 9-09 tablet by ity of tablet 00:00: mouth [place] 00 every 8 [facility] (eight) Branch hours as needed for Itching. dulaglutide 0 Yes [id number] .75mg inject 1 [facility] (TRULICITY) 9-09 Pen under ity of 0.75 mg/0.5 00:00: the skin [place] mL PnIj 00 weekly. [facility] metformin 0 Yes [id number] TAKE 2 U nivers ER 500 mg 9-09 TABLETS BY ity of 24 hr 00:00: MOUTH ONCE [place] tablet 00 DAILY IN [facility] MORNING AND 3 ONCE DAILY IN THE EVENING. hydrOXYzine 2021-0 Yes [id number] 25mg Take 1 [facility] 25 mg 9-09 tablet by ity of tablet 00:00: mouth [place] 00 every 8 [facility] (eight) Branch hours as needed for Itching. dulaglutide Yes [id number] .75mg inject 1 [facility] (TRULICITY) 9-09 Pen under ity of 0.75 mg/0.5 00:00: the skin [place] mL PnIj 00 weekly. [facility] metformin Yes [id number] TAKE 2 U nivers ER 500 mg 9-09 TABLETS BY ity of 24 hr 00:00: MOUTH ONCE [place] tablet 00 DAILY IN [facility] MORNING AND 3 ONCE DAILY IN THE EVENING. hydrOXYzine 2021-0 Yes [id number] 25mg Take 1 [facility] 25 mg 9-09 tablet by ity of tablet 00:00: mouth [place] 00 every 8 [facility] (eight) Branch hours as needed for Itching. dulaglutide 0 Yes [id number] .75mg inject 1 [facility] (TRULICITY) 9-09 Pen under ity of 0.75 mg/0.5 00:00: the skin [place] mL PnIj 00 weekly. [facility] metformin Yes [id number] TAKE 2 U nivers ER 500 mg 9-09 TABLETS BY ity of 24 hr 00:00: MOUTH ONCE [place] tablet 00 DAILY IN [facility] MORNING AND 3 ONCE DAILY IN THE EVENING. dulaglutide 2021-0 Yes [id number] .75mg inject 1 [facility] (TRULICITY) 9-09 Pen under ity of 0.75 mg/0.5 00:00: the skin [place] mL PnIj 00 weekly. [facility] metformin 2021-0 Yes [id number] TAKE 2 U nivers ER 500 mg 9-09 TABLETS BY ity of 24 hr 00:00: MOUTH ONCE [place] tablet 00 DAILY IN [facility] MORNING AND 3 ONCE DAILY IN THE EVENING. dulaglutide 0 Yes [id number] .75mg inject 1 [facility] (TRULICITY) 9-09 Pen under ity of 0.75 mg/0.5 00:00: the skin [place] mL PnIj 00 weekly. [facility] metformin Yes [id number] TAKE 2 U nivers ER 500 mg 9-09 TABLETS BY ity of 24 hr 00:00: MOUTH ONCE [place] tablet 00 DAILY IN [facility] MORNING AND 3 ONCE DAILY IN THE EVENING. dulaglutide Yes [id number] .75mg inject 1 [facility] (TRULICITY) 9-09 Pen under ity of 0.75 mg/0.5 00:00: the skin [place] mL PnIj 00 weekly. [facility] metformin Yes [id number] TAKE 2 U nivers ER 500 mg 9-09 TABLETS BY ity of 24 hr 00:00: MOUTH ONCE [place] tablet 00 DAILY IN [facility] MORNING AND 3 ONCE DAILY IN THE EVENING. dulaglutide Yes [id number] .75mg inject 1 [facility] (TRULICITY) 9-09 Pen under ity of 0.75 mg/0.5 00:00: the skin [place] mL PnIj 00 weekly. [facility] metformin Yes [id number] TAKE 2 U nivers ER 500 mg 9-09 TABLETS BY ity of 24 hr 00:00: MOUTH ONCE [place] tablet 00 DAILY IN [facility] MORNING AND 3 ONCE DAILY IN THE EVENING. dulaglutide Yes [id number] .75mg inject 1 [facility] (TRULICITY) 9-09 Pen under ity of 0.75 mg/0.5 00:00: the skin [place] mL PnIj 00 weekly. [facility] metformin Yes [id number] TAKE 2 U nivers ER 500 mg 9-09 TABLETS BY ity of 24 hr 00:00: MOUTH ONCE [place] tablet 00 DAILY IN [facility] MORNING AND 3 ONCE DAILY IN THE EVENING. dulaglutide 0 Yes [id number] .75mg inject 1 [facility] (TRULICITY) 9-09 Pen under ity of 0.75 mg/0.5 00:00: the skin [place] mL PnIj 00 weekly. [facility] metformin 0 Yes [id number] TAKE 2 U nivers ER 500 mg 9-09 TABLETS BY ity of 24 hr 00:00: MOUTH ONCE [place] tablet 00 DAILY IN [facility] MORNING AND 3 ONCE DAILY IN THE EVENING. dulaglutide Yes [id number] .75mg inject 1 [facility] (TRULICITY) 9-09 Pen under ity of 0.75 mg/0.5 00:00: the skin [place] mL PnIj 00 weekly. [facility] metformin Yes [id number] TAKE 2 U nivers ER 500 mg 9-09 TABLETS BY ity of 24 hr 00:00: MOUTH ONCE [place] tablet 00 DAILY IN [facility] MORNING AND 3 ONCE DAILY IN THE EVENING. dulaglutide Yes [id number] .75mg inject 1 [facility] (TRULICITY) 9-09 Pen under ity of 0.75 mg/0.5 00:00: the skin [place] mL PnIj 00 weekly. [facility] metformin Yes [id number] TAKE 2 U nivers ER 500 mg 9-09 TABLETS BY ity of 24 hr 00:00: MOUTH ONCE [place] tablet 00 DAILY IN [facility] MORNING AND 3 ONCE DAILY IN THE EVENING. dulaglutide 0 Yes [id number] .75mg inject 1 [facility] (TRULICITY) 9-09 Pen under ity of 0.75 mg/0.5 00:00: the skin [place] mL PnIj 00 weekly. [facility] metformin 0 Yes [id number] TAKE 2 U nivers ER 500 mg 9-09 TABLETS BY ity of 24 hr 00:00: MOUTH ONCE [place] tablet 00 DAILY IN [facility] MORNING AND 3 ONCE DAILY IN THE EVENING. dulaglutide 0 Yes [id number] .75mg inject 1 [facility] (TRULICITY) 9-09 Pen under ity of 0.75 mg/0.5 00:00: the skin [place] mL PnIj 00 weekly. [facility] metformin 0 Yes [id number] TAKE 2 U nivers ER 500 mg 9-09 TABLETS BY ity of 24 hr 00:00: MOUTH ONCE [place] tablet 00 DAILY IN [facility] MORNING AND 3 ONCE DAILY IN THE EVENING. dulaglutide 2021-0 Yes [id number] .75mg inject 1 [facility] (TRULICITY) 9-09 Pen under ity of 0.75 mg/0.5 00:00: the skin [place] mL PnIj 00 weekly. [facility] metformin Yes [id number] TAKE 2 U nivers ER 500 mg 9-09 TABLETS BY ity of 24 hr 00:00: MOUTH ONCE [place] tablet 00 DAILY IN [facility] MORNING AND 3 ONCE DAILY IN THE EVENING. dulaglutide Yes [id number] .75mg inject 1 [facility] (TRULICITY) 9-09 Pen under ity of 0.75 mg/0.5 00:00: the skin [place] mL PnIj 00 weekly. [facility] metformin Yes [id number] TAKE 2 U nivers ER 500 mg 9-09 TABLETS BY ity of 24 hr 00:00: MOUTH ONCE [place] tablet 00 DAILY IN [facility] MORNING AND 3 ONCE DAILY IN THE EVENING. dulaglutide Yes [id number] .75mg inject 1 [facility] (TRULICITY) 9-09 Pen under ity of 0.75 mg/0.5 00:00: the skin [place] mL PnIj 00 weekly. [facility] metformin Yes [id number] TAKE 2 U nivers ER 500 mg 9-09 TABLETS BY ity of 24 hr 00:00: MOUTH ONCE [place] tablet 00 DAILY IN [facility] MORNING AND 3 ONCE DAILY IN THE EVENING. dulaglutide Yes [id number] .75mg inject 1 [facility] (TRULICITY) 9-09 Pen under ity of 0.75 mg/0.5 00:00: the skin [place] mL PnIj 00 weekly. [facility] metformin Yes [id number] TAKE 2 U nivers ER 500 mg 9-09 TABLETS BY ity of 24 hr 00:00: MOUTH ONCE [place] tablet 00 DAILY IN [facility] MORNING AND 3 ONCE DAILY IN THE EVENING. dulaglutide Yes [id number] .75mg inject 1 [facility] (TRULICITY) 9-09 Pen under ity of 0.75 mg/0.5 00:00: the skin [place] mL PnIj 00 weekly. [facility] metformin Yes [id number] TAKE 2 U nivers ER 500 mg 9-09 TABLETS BY ity of 24 hr 00:00: MOUTH ONCE [place] tablet 00 DAILY IN [facility] MORNING AND 3 ONCE DAILY IN THE EVENING. dulaglutide 0 Yes [id number] .75mg inject 1 [facility] (TRULICITY) 9-09 Pen under ity of 0.75 mg/0.5 00:00: the skin [place] mL PnIj 00 weekly. [facility] metformin Yes [id number] TAKE 2 U nivers ER 500 mg 9-09 TABLETS BY ity of 24 hr 00:00: MOUTH ONCE [place] tablet 00 DAILY IN [facility] MORNING AND 3 ONCE DAILY IN THE EVENING. dulaglutide Yes [id number] .75mg inject 1 [facility] (TRULICITY) 9-09 Pen under ity of 0.75 mg/0.5 00:00: the skin [place] mL PnIj 00 weekly. [facility] metformin Yes [id number] TAKE 2 U nivers ER 500 mg 9-09 TABLETS BY ity of 24 hr 00:00: MOUTH ONCE [place] tablet 00 DAILY IN [facility] MORNING AND 3 ONCE DAILY IN THE EVENING. dulaglutide Yes [id number] .75mg inject 1 [facility] (TRULICITY) 9-09 Pen under ity of 0.75 mg/0.5 00:00: the skin [place] mL PnIj 00 weekly. [facility] metformin Yes [id number] TAKE 2 U nivers ER 500 mg 9-09 TABLETS BY ity of 24 hr 00:00: MOUTH ONCE [place] tablet 00 DAILY IN [facility] MORNING AND 3 ONCE DAILY IN THE EVENING. dulaglutide Yes [id number] .75mg inject 1 [facility] (TRULICITY) 9-09 Pen under ity of 0.75 mg/0.5 00:00: the skin [place] mL PnIj 00 weekly. [facility] metformin Yes [id number] TAKE 2 U nivers ER 500 mg 9-09 TABLETS BY ity of 24 hr 00:00: MOUTH ONCE [place] tablet 00 DAILY IN [facility] MORNING AND 3 ONCE DAILY IN THE EVENING. dulaglutide 0 Yes [id number] .75mg inject 1 [facility] (TRULICITY) 9-09 Pen under ity of 0.75 mg/0.5 00:00: the skin [place] mL PnIj 00 weekly. [facility] metformin Yes [id number] TAKE 2 U nivers ER 500 mg 9-09 TABLETS BY ity of 24 hr 00:00: MOUTH ONCE [place] tablet 00 DAILY IN [facility] MORNING AND 3 ONCE DAILY IN THE EVENING. dulaglutide Yes [id number] .75mg inject 1 [facility] (TRULICITY) 9-09 Pen under ity of 0.75 mg/0.5 00:00: the skin [place] mL PnIj 00 weekly. [facility] metformin Yes [id number] TAKE 2 U nivers ER 500 mg 9-09 TABLETS BY ity of 24 hr 00:00: MOUTH ONCE [place] tablet 00 DAILY IN [facility] MORNING AND 3 ONCE DAILY IN THE EVENING. dulaglutide Yes [id number] .75mg inject 1 [facility] (TRULICITY) 9-09 Pen under ity of 0.75 mg/0.5 00:00: the skin [place] mL PnIj 00 weekly. [facility] metformin Yes [id number] TAKE 2 U nivers ER 500 mg 9-09 TABLETS BY ity of 24 hr 00:00: MOUTH ONCE [place] tablet 00 DAILY IN [facility] MORNING AND 3 ONCE DAILY IN THE EVENING. dulaglutide Yes [id number] .75mg inject 1 [facility] (TRULICITY) 9-09 Pen under ity of 0.75 mg/0.5 00:00: the skin [place] mL PnIj 00 weekly. [facility] metformin Yes [id number] TAKE 2 U nivers ER 500 mg 9-09 TABLETS BY ity of 24 hr 00:00: MOUTH ONCE [place] tablet 00 DAILY IN [facility] MORNING AND 3 ONCE DAILY IN THE EVENING. dulaglutide Yes [id number] .75mg inject 1 [facility] (TRULICITY) 9-09 Pen under ity of 0.75 mg/0.5 00:00: the skin [place] mL PnIj 00 weekly. [facility] metformin Yes [id number] TAKE 2 U nivers ER 500 mg 9-09 TABLETS BY ity of 24 hr 00:00: MOUTH ONCE [place] tablet 00 DAILY IN [facility] MORNING AND 3 ONCE DAILY IN THE EVENING. dulaglutide Yes [id number] .75mg inject 1 [facility] (TRULICITY) 9-09 Pen under ity of 0.75 mg/0.5 00:00: the skin [place] mL PnIj 00 weekly. [facility] metformin Yes [id number] TAKE 2 U nivers ER 500 mg 9-09 TABLETS BY ity of 24 hr 00:00: MOUTH ONCE [place] tablet 00 DAILY IN [facility] MORNING AND 3 ONCE DAILY IN THE EVENING. dulaglutide Yes [id number] .75mg inject 1 [facility] (TRULICITY) 9-09 Pen under ity of 0.75 mg/0.5 00:00: the skin [place] mL PnIj 00 weekly. [facility] metformin Yes [id number] TAKE 2 U nivers ER 500 mg 9-09 TABLETS BY ity of 24 hr 00:00: MOUTH ONCE [place] tablet 00 DAILY IN [facility] MORNING AND 3 ONCE DAILY IN THE EVENING. dulaglutide Yes [id number] .75mg inject 1 [facility] (TRULICITY) 9-09 Pen under ity of 0.75 mg/0.5 00:00: the skin [place] mL PnIj 00 weekly. [facility] metformin Yes [id number] TAKE 2 U nivers ER 500 mg 9-09 TABLETS BY ity of 24 hr 00:00: MOUTH ONCE [place] tablet 00 DAILY IN [facility] MORNING AND 3 ONCE DAILY IN THE EVENING. dulaglutide Yes [id number] .75mg inject 1 [facility] (TRULICITY) 9-09 Pen under ity of 0.75 mg/0.5 00:00: the skin [place] mL PnIj 00 weekly. [facility] metformin Yes [id number] TAKE 2 U nivers ER 500 mg 9-09 TABLETS BY ity of 24 hr 00:00: MOUTH ONCE [place] tablet 00 DAILY IN [facility] MORNING AND 3 ONCE DAILY IN THE EVENING. dulaglutide Yes [id number] .75mg inject 1 [facility] (TRULICITY) 9-09 Pen under ity of 0.75 mg/0.5 00:00: the skin [place] mL PnIj 00 weekly. [facility] metformin Yes [id number] TAKE 2 U nivers ER 500 mg 9-09 TABLETS BY ity of 24 hr 00:00: MOUTH ONCE [place] tablet 00 DAILY IN [facility] MORNING AND 3 ONCE DAILY IN THE EVENING. dulaglutide Yes [id number] .75mg inject 1 [facility] (TRULICITY) 9-09 Pen under ity of 0.75 mg/0.5 00:00: the skin [place] mL PnIj 00 weekly. [facility] metformin Yes [id number] TAKE 2 U nivers ER 500 mg 9-09 TABLETS BY ity of 24 hr 00:00: MOUTH ONCE [place] tablet 00 DAILY IN [facility] MORNING AND 3 ONCE DAILY IN THE EVENING. dulaglutide Yes [id number] .75mg inject 1 [facility] (TRULICITY) 9-09 Pen under ity of 0.75 mg/0.5 00:00: the skin [place] mL PnIj 00 weekly. [facility] metformin Yes [id number] TAKE 2 U nivers ER 500 mg 9-09 TABLETS BY ity of 24 hr 00:00: MOUTH ONCE [place] tablet 00 DAILY IN [facility] MORNING AND 3 ONCE DAILY IN THE EVENING. dulaglutide Yes [id number] .75mg inject 1 [facility] (TRULICITY) 9-09 Pen under ity of 0.75 mg/0.5 00:00: the skin [place] mL PnIj 00 weekly. [facility] metformin Yes [id number] TAKE 2 U nivers ER 500 mg 9-09 TABLETS BY ity of 24 hr 00:00: MOUTH ONCE [place] tablet 00 DAILY IN [facility] MORNING AND 3 ONCE DAILY IN THE EVENING. dulaglutide Yes [id number] .75mg inject 1 [facility] (TRULICITY) 9-09 Pen under ity of 0.75 mg/0.5 00:00: the skin [place] mL PnIj 00 weekly. [facility] metformin Yes [id number] TAKE 2 U nivers ER 500 mg 9-09 TABLETS BY ity of 24 hr 00:00: MOUTH ONCE [place] tablet 00 DAILY IN [facility] MORNING AND 3 ONCE DAILY IN THE EVENING. dulaglutide Yes [id number] .75mg inject 1 [facility] (TRULICITY) 9-09 Pen under ity of 0.75 mg/0.5 00:00: the skin [place] mL PnIj 00 weekly. [facility] metformin Yes [id number] TAKE 2 U nivers ER 500 mg 9-09 TABLETS BY ity of 24 hr 00:00: MOUTH ONCE [place] tablet 00 DAILY IN [facility] MORNING AND 3 ONCE DAILY IN THE EVENING. dulaglutide Yes [id number] .75mg inject 1 [facility] (TRULICITY) 04-21 Pen under ity of 0.75 mg/0.5 00:00: the skin [place] mL PnIj 00 weekly. [facility] metformin 2022- No [id number] TAKE 2 [facility] ER 500 mg 04-21 TABLETS BY ity of 24 hr 00:00: 00:00 MOUTH ONCE [place] tablet 00 :00 DAILY IN [facility] MORNING AND 3 ONCE DAILY IN THE EVENING. dulaglutide 2022- No [id number] .75mg inject 1 [facility] (TRULICITY) 04-21 Pen under it y of 0.75 mg/0.5 00:00: 00:00 the skin [place] mL PnIj 00 :00 weekly. [facility] metformin 2022- No [id number] TAKE 2 [facility] ER 500 mg 04-21 TABLETS BY ity of 24 hr 00:00: 00:00 MOUTH ONCE [place] tablet 00 :00 DAILY IN [facility] MORNING AND 3 ONCE DAILY IN THE EVENING. dulaglutide 2022- No [id number] .75mg inject 1 [facility] (TRULICITY) 04-21 Pen under it y of 0.75 mg/0.5 00:00: 00:00 the skin [place] mL PnIj 00 :00 weekly. [facility] metformin 2022- No [id number] TAKE 2 [facility] ER 500 mg 04-21 TABLETS BY ity of 24 hr 00:00: 00:00 MOUTH ONCE [place] tablet 00 :00 DAILY IN [facility] MORNING AND 3 ONCE DAILY IN THE EVENING. dulaglutide 2022- No [id number] .75mg inject 1 [facility] (TRULICITY) 04-21 Pen under it y of 0.75 mg/0.5 00:00: 00:00 the skin [place] mL PnIj 00 :00 weekly. [facility] hydrOXYzine 2021- No [id number] 25mg Take 1 [facility] 25 mg 04-21 tablet by ity of tablet 00:00: 00:00 mouth [place] 00 :00 every 8 Medical (eight) Branch hours as needed for Itching. insulin NPH Yes [id number] INJECT 20 [facility] (NOVOLIN N 9-06 UNITS ity of NPH U-100 00:00: SUBCUTANEO [place] INSULIN) 00 USLY ONCE Medica l 100 unit/mL DAILY WITH Br anch injection BREAKFAST insulin Yes [id number] INJECT 15 [facility] regular 9-06 UNITS ity of human 00:00: SUBCUTANEO [place] (NOVOLIN R 00 USLY THREE Med ical REGULAR TIMES Branch U-100 DAILY INSULN) 100 BEFORE unit/mL MEAL(S) injection insulin NPH Yes [id number] INJECT 20 [facility] (NOVOLIN N 9-06 UNITS ity of NPH U-100 00:00: SUBCUTANEO [place] INSULIN) 00 USLY ONCE Medica l 100 unit/mL DAILY WITH Br anch injection BREAKFAST insulin Yes [id number] INJECT 15 [facility] regular 9-06 UNITS ity of human 00:00: SUBCUTANEO [place] (NOVOLIN R 00 USLY THREE Med ical REGULAR TIMES Branch U-100 DAILY INSULN) 100 BEFORE unit/mL MEAL(S) injection insulin NPH Yes [id number] INJECT 20 [facility] (NOVOLIN N 9-06 UNITS ity of NPH U-100 00:00: SUBCUTANEO [place] INSULIN) 00 USLY ONCE Medica l 100 unit/mL DAILY WITH Br anch injection BREAKFAST insulin Yes [id number] INJECT 15 [facility] regular 9-06 UNITS ity of human 00:00: SUBCUTANEO [place] (NOVOLIN R 00 USLY THREE Med ical REGULAR TIMES Branch U-100 DAILY INSULN) 100 BEFORE unit/mL MEAL(S) injection insulin NPH Yes [id number] INJECT 20 [facility] (NOVOLIN N 9-06 UNITS ity of NPH U-100 00:00: SUBCUTANEO [place] INSULIN) 00 USLY ONCE Medica l 100 unit/mL DAILY WITH Br anch injection BREAKFAST insulin Yes [id number] INJECT 15 [facility] regular 9-06 UNITS ity of human 00:00: SUBCUTANEO [place] (NOVOLIN R 00 USLY THREE Med ical REGULAR TIMES Branch U-100 DAILY INSULN) 100 BEFORE unit/mL MEAL(S) injection ondansetron Yes [id number] DISSOLVE 1 [facility] 4 mg 9-06 TABLET IN ity of disintegrat 00:00: MOUTH [place] ing tablet 00 EVERY 8 Medica l HOURS Branch NEEDED FOR NAUSEA AND VOMITING FOR UP TO 4 DAYS insulin NPH Yes [id number] INJECT 20 [facility] (NOVOLIN N 9-06 UNITS ity of NPH U-100 00:00: SUBCUTANEO [place] INSULIN) 00 USLY ONCE Medica l 100 unit/mL DAILY WITH Br anch injection BREAKFAST insulin Yes [id number] INJECT 15 [facility] regular 9-06 UNITS ity of human 00:00: SUBCUTANEO [place] (NOVOLIN R 00 USLY THREE Med ical REGULAR TIMES Branch U-100 DAILY INSULN) 100 BEFORE unit/mL MEAL(S) injection gabapentin Yes [id number] 400mg Take 1 [facility] 400 mg 9- 9100 capsule by ity of capsule 00:00: mouth in [place] 00 the Medical morning Branch and 1 capsule at noon and 1 capsule in the evening. ondansetron Yes [id number] DISSOLVE 1 [facility] 4 mg 9-06 TABLET IN ity of disintegrat 00:00: MOUTH [place] ing tablet 00 EVERY 8 Medica l HOURS Branch NEEDED FOR NAUSEA AND VOMITING FOR UP TO 4 DAYS insulin NPH Yes [id number] INJECT 20 [facility] (NOVOLIN N 9-06 UNITS ity of NPH U-100 00:00: SUBCUTANEO [place] INSULIN) 00 USLY ONCE Medica l 100 unit/mL DAILY WITH Br anch injection BREAKFAST insulin Yes [id number] INJECT 15 [facility] regular 9-06 UNITS ity of human 00:00: SUBCUTANEO [place] (NOVOLIN R 00 USLY THREE Med ical REGULAR TIMES Branch U-100 DAILY INSULN) 100 BEFORE unit/mL MEAL(S) injection gabapentin Yes [id number] 400mg Take 1 [facility] 400 mg 9- 9100 capsule by ity of capsule 00:00: mouth in [place] 00 the Medical morning Branch and 1 capsule at noon and 1 capsule in the evening. ondansetron Yes [id number] DISSOLVE 1 [facility] 4 mg 9-06 TABLET IN ity of disintegrat 00:00: MOUTH [place] ing tablet 00 EVERY 8 Medica l HOURS Branch NEEDED FOR NAUSEA AND VOMITING FOR UP TO 4 DAYS insulin NPH Yes [id number] INJECT 20 [facility] (NOVOLIN N 9-06 UNITS ity of NPH U-100 00:00: SUBCUTANEO [place] INSULIN) 00 USLY ONCE Medica l 100 unit/mL DAILY WITH Br anch injection BREAKFAST insulin Yes [id number] INJECT 15 [facility] regular 9-06 UNITS ity of human 00:00: SUBCUTANEO [place] (NOVOLIN R 00 USLY THREE Med ical REGULAR TIMES Branch U-100 DAILY INSULN) 100 BEFORE unit/mL MEAL(S) injection gabapentin Yes [id number] 400mg Take 1 [facility] 400 mg 9- 9100 capsule by ity of capsule 00:00: mouth in [place] 00 the Medical morning Branch and 1 capsule at noon and 1 capsule in the evening. ondansetron Yes [id number] DISSOLVE 1 [facility] 4 mg 9-06 TABLET IN ity of disintegrat 00:00: MOUTH [place] ing tablet 00 EVERY 8 Medica l HOURS Branch NEEDED FOR NAUSEA AND VOMITING FOR UP TO 4 DAYS insulin NPH Yes [id number] INJECT 20 [facility] (NOVOLIN N 9-06 UNITS ity of NPH U-100 00:00: SUBCUT[place] INSULIN) 00 USLY ONCE Medica l 100 unit/mL DAILY WITH Br anch injection BREAKFAST insulin Yes [id number] INJECT 15 [facility] regular 9-06 UNITS ity of human 00:00: [facility] (NOVOLIN R 00 USLY THREE Med ical REGULAR TIMES Branch U-100 DAILY INSULN) 100 BEFORE unit/mL MEAL(S) injection gabapentin Yes [id number] 400mg Take 1 [facility] 400 mg 04-18 9100 capsule by ity of capsule 00:00: mouth in [place] 00 the Medical morning Branch and 1 capsule at noon and 1 capsule in the evening. ondansetron Yes [id number] DISSOLVE 1 [facility] 4 mg 9-06 TABLET IN ity of disintegrat 00:00: MOUTH [place] ing tablet 00 EVERY 8 Medica l HOURS Branch NEEDED FOR NAUSEA AND VOMITING FOR UP TO 4 DAYS insulin NPH Yes [id number] INJECT 20 [facility] (NOVOLIN N 9-06 UNITS ity of NPH U-100 00:00: SUBCUTANEO [place] INSULIN) 00 USLY ONCE Medica l 100 unit/mL DAILY WITH Br anch injection BREAKFAST insulin Yes [id number] INJECT 15 [facility] regular 9-06 UNITS ity of human 00:00: SUBCUTANEO [place] (NOVOLIN R 00 USLY THREE Med ical REGULAR TIMES Branch U-100 DAILY INSULN) 100 BEFORE unit/mL MEAL(S) injection gabapentin Yes [id number] 400mg Take 1 [facility] 400 mg 04-18 9100 capsule by ity of capsule 00:00: mouth in [place] 00 the Medical morning Branch and 1 capsule at noon and 1 capsule in the evening. ondansetron Yes [id number] DISSOLVE 1 [facility] 4 mg 9-06 TABLET IN ity of disintegrat 00:00: MOUTH [place] ing tablet 00 EVERY 8 Medica l HOURS Branch NEEDED FOR NAUSEA AND VOMITING FOR UP TO 4 DAYS insulin NPH Yes [id number] INJECT 20 [facility] (NOVOLIN N 9-06 UNITS ity of NPH U-100 00:00: SUBCUTANEO [place] INSULIN) 00 USLY ONCE Medica l 100 unit/mL DAILY WITH Br anch injection BREAKFAST insulin Yes [id number] INJECT 15 [facility] regular 9-06 UNITS ity of human 00:00: SUBCUTANEO [place] (NOVOLIN R 00 USLY THREE Med ical REGULAR TIMES Branch U-100 DAILY INSULN) 100 BEFORE unit/mL MEAL(S) injection ondansetron Yes [id number] DISSOLVE 1 [facility] 4 mg 9-06 TABLET IN ity of disintegrat 00:00: MOUTH [place] ing tablet 00 EVERY 8 Medica l HOURS Branch NEEDED FOR NAUSEA AND VOMITING FOR UP TO 4 DAYS insulin NPH Yes [id number] INJECT 20 [facility] (NOVOLIN N 9-06 UNITS ity of NPH U-100 00:00: SUBCUT[place]O [place] INSULIN) 00 USLY ONCE Medica l 100 unit/mL DAILY WITH Br anch injection BREAKFAST insulin Yes [id number] INJECT 15 [facility] regular 9-06 UNITS ity of human 00:00: SUBCUTANEO [place] (NOVOLIN R 00 USLY THREE Med ical REGULAR TIMES Branch U-100 DAILY INSULN) 100 BEFORE unit/mL MEAL(S) injection ondansetron Yes [id number] DISSOLVE 1 [facility] 4 mg 9-06 TABLET IN ity of disintegrat 00:00: MOUTH [place] ing tablet 00 EVERY 8 Medica l HOURS Branch NEEDED FOR NAUSEA AND VOMITING FOR UP TO 4 DAYS insulin NPH Yes [id number] INJECT 20 [facility] (NOVOLIN N 9-06 UNITS ity of NPH U-100 00:00: SUBCUT[place]O [place] INSULIN) 00 USLY ONCE Medica l 100 unit/mL DAILY WITH Br anch injection BREAKFAST insulin Yes [id number] INJECT 15 [facility] regular 9-06 UNITS [facility] of human 00:00: SUBCUTANEO [place] (NOVOLIN R 00 USLY THREE Med ical REGULAR TIMES Branch U-100 DAILY INSULN) 100 BEFORE unit/mL MEAL(S) injection ondansetron Yes [id number] DISSOLVE 1 [facility] 4 mg 9-06 TABLET IN ity of disintegrat 00:00: MOUTH [place] ing tablet 00 EVERY 8 Medica l HOURS Branch NEEDED FOR NAUSEA AND VOMITING FOR UP TO 4 DAYS insulin NPH Yes [id number] INJECT 20 [facility] (NOVOLIN N 9-06 UNITS ity of NPH U-100 00:00: [place] INSULIN[place] 00 USLY ONCE [facility] l 100 unit/mL DAILY WITH Br anch injection BREAKFAST insulin Yes [id number] INJECT 15 [facility] regular 9-06 UNITS ity of human 00:00: SUBCUTANEO [place] (NOVOLIN R 00 USLY THREE Med ical REGULAR TIMES Branch U-100 DAILY INSULN) 100 BEFORE unit/mL MEAL(S) injection ondansetron Yes [id number] DISSOLVE 1 [facility] 4 mg 9-06 TABLET IN ity of disintegrat 00:00: MOUTH [place] ing tablet 00 EVERY 8 Medica l HOURS Branch NEEDED FOR NAUSEA AND VOMITING FOR UP TO 4 DAYS insulin NPH Yes [id number] INJECT 20 [facility] (NOVOLIN N 9-06 UNITS ity of NPH U-100 00:00: [place] INSULIN) 00 USLY ONCE [facility] 100 unit/mL DAILY WITH Br anch injection BREAKFAST insulin Yes [id number] INJECT 15 [facility] regular 9-06 UNITS [facility]y of human 00:00: SUBCUTANEO [place] (NOVOLIN R 00 USLY THREE Med ical REGULAR TIMES Branch U-100 DAILY INSULN) 100 BEFORE unit/mL MEAL(S) injection ondansetron Yes [id number] DISSOLVE 1 [facility] 4 mg 9-06 TABLET IN ity of disintegrat 00:00: MOUTH [place] ing tablet 00 EVERY 8 Medica l HOURS Branch NEEDED FOR NAUSEA AND VOMITING FOR UP TO 4 DAYS insulin NPH Yes [id number] INJECT 20 [facility] (NOVOLIN N 9-06 UNITS ity of NPH U-100 00:00: [place] INSULIN) 00 USLY ONCE [facility] 100 unit/mL DAILY WITH Br anch injection BREAKFAST insulin Yes [id number] INJECT 15 [facility] regular 9-06 UNITS ity of human 00:00: SUBCUTANEO [place] (NOVOLIN R 00 USLY THREE Med ical REGULAR TIMES Branch U-100 DAILY INSULN) 100 BEFORE unit/mL MEAL(S) injection ondansetron Yes [id number] DISSOLVE 1 [facility] 4 mg 9-06 TABLET IN ity of disintegrat 00:00: MOUTH [place] ing tablet 00 EVERY 8 Medica l HOURS Branch NEEDED FOR NAUSEA AND VOMITING FOR UP TO 4 DAYS insulin NPH Yes [id number] INJECT 20 [facility] (NOVOLIN N 9-06 UNITS ity of NPH U-100 00:00: [place] INSULIN) 00 USLY ONCE [facility] 100 unit/mL DAILY WITH Br anch injection BREAKFAST insulin Yes [id number] INJECT 15 [facility] regular 9-06 UNITS [facility]y of human 00:00: SUBCUTANEO [place] (NOVOLIN R 00 USLY THREE Med ical REGULAR TIMES Branch U-100 DAILY INSULN) 100 BEFORE unit/mL MEAL(S) injection ondansetron Yes [id number] DISSOLVE 1 [facility] 4 mg 9-06 TABLET IN ity of disintegrat 00:00: MOUTH [place] ing tablet 00 EVERY 8 Medica l HOURS Branch NEEDED FOR NAUSEA AND VOMITING FOR UP TO 4 DAYS insulin NPH Yes [id number] INJECT 20 [facility] (NOVOLIN N 9-06 UNITS ity of NPH U-100 00:00: [place] INSULIN) 00 USLY ONCE [facility] 100 unit/mL DAILY WITH Br anch injection BREAKFAST insulin Yes [id number] INJECT 15 [facility] regular 9-06 UNITS ity of human 00:00: SUBCUTANEO [place] (NOVOLIN R 00 USLY THREE Med ical REGULAR TIMES Branch U-100 DAILY INSULN) 100 BEFORE unit/mL MEAL(S) injection ondansetron Yes [id number] DISSOLVE 1 [facility] 4 mg 9-06 TABLET IN ity of disintegrat 00:00: MOUTH [place] ing tablet 00 EVERY 8 Medica l HOURS Branch NEEDED FOR NAUSEA AND VOMITING FOR UP TO 4 DAYS insulin NPH Yes [id number] INJECT 20 [facility] (NOVOLIN N 9-06 UNITS ity of NPH U-100 00:00: [place] INSULIN) 00 USLY ONCE Med[facility] l 100 unit/mL DAILY WITH Br anch injection BREAKFAST insulin Yes [id number] INJECT 15 [facility] regular 9-06 UNITS ity of human 00:00: SUBCUTANEO [place] (NOVOLIN R 00 USLY THREE Med ical REGULAR TIMES Branch U-100 DAILY INSULN) 100 BEFORE unit/mL MEAL(S) injection ondansetron Yes [id number] DISSOLVE 1 [facility] 4 mg 9-06 TABLET IN ity of disintegrat 00:00: MOUTH [place] ing tablet 00 EVERY 8 Medica l HOURS Branch NEEDED FOR NAUSEA AND VOMITING FOR UP TO 4 DAYS insulin NPH Yes [id number] INJECT 20 [facility] (NOVOLIN N 9-06 UNITS ity of NPH U-100 00:00: [place] INSULIN) 00 USLY ONCE [facility] 100 unit/mL DAILY WITH Br anch injection BREAKFAST insulin Yes [id number] INJECT 15 [facility] regular 9-06 UNITS ity of human 00:00: SUBCUTANEO [place] (NOVOLIN R 00 USLY THREE Med ical REGULAR TIMES Branch U-100 DAILY INSULN) 100 BEFORE unit/mL MEAL(S) injection ondansetron Yes [id number] DISSOLVE 1 [facility] 4 mg 9-06 TABLET IN ity of disintegrat 00:00: MOUTH [place] ing tablet 00 EVERY 8 Medica l HOURS Branch NEEDED FOR NAUSEA AND VOMITING FOR UP TO 4 DAYS insulin NPH Yes [id number] INJECT 20 [facility] (NOVOLIN N 9-06 UNITS ity of NPH U-100 00:00: [place] INSULIN) 00 USLY ONCE [facility] 100 unit/mL DAILY WITH Br anch injection BREAKFAST insulin Yes [id number] INJECT 15 [facility] regular 9-06 UNITS ity of human 00:00: SUBCUTANEO [place] (NOVOLIN R 00 USLY THREE Med ical REGULAR TIMES Branch U-100 DAILY INSULN) 100 BEFORE unit/mL MEAL(S) injection ondansetron Yes [id number] DISSOLVE 1 [facility] 4 mg 9-06 TABLET IN ity of disintegrat 00:00: MOUTH [place] ing tablet 00 EVERY 8 Medica l HOURS Branch NEEDED FOR NAUSEA AND VOMITING FOR UP TO 4 DAYS insulin NPH Yes [id number] INJECT 20 [facility] (NOVOLIN N 9-06 UNITS ity of NPH U-100 00:00: [place] INSULIN) 00 USLY ONCE [facility] 100 unit/mL DAILY WITH Br anch injection BREAKFAST insulin Yes [id number] INJECT 15 [facility] regular 9-06 UNITS ity of human 00:00: SUBCUTANEO [place] (NOVOLIN R 00 USLY THREE Med ical REGULAR TIMES Branch U-100 DAILY INSULN) 100 BEFORE unit/mL MEAL(S) injection ondansetron Yes [id number] DISSOLVE 1 [facility] 4 mg 9-06 TABLET IN ity of disintegrat 00:00: MOUTH [place] ing tablet 00 EVERY 8 Medica l HOURS Branch NEEDED FOR NAUSEA AND VOMITING FOR UP TO 4 DAYS insulin NPH Yes [id number] INJECT 20 [facility] (NOVOLIN N 9-06 UNITS ity of NPH U-100 00:00: [place] INSULIN) 00 USLY ONCE Med[facility] l 100 unit/mL DAILY WITH Br anch injection BREAKFAST insulin Yes [id number] INJECT 15 [facility] regular 9-06 UNITS ity of human 00:00: SUBCUTANEO [place] (NOVOLIN R 00 USLY THREE Med ical REGULAR TIMES Branch U-100 DAILY INSULN) 100 BEFORE unit/mL MEAL(S) injection ondansetron Yes [id number] DISSOLVE 1 [facility] 4 mg 9-06 TABLET IN ity of disintegrat 00:00: MOUTH [place] ing tablet 00 EVERY 8 Medica l HOURS Branch NEEDED FOR NAUSEA AND VOMITING FOR UP TO 4 DAYS insulin NPH Yes [id number] INJECT 20 [facility] (NOVOLIN N 9-06 UNITS ity of NPH U-100 00:00: [place] INSULIN) 00 USLY ONCE Med[facility] l 100 unit/mL DAILY WITH Br anch injection BREAKFAST insulin Yes [id number] INJECT 15 [facility] regular 9-06 UNITS ity of human 00:00: SUBCUTANEO [place] (NOVOLIN R 00 USLY THREE Med ical REGULAR TIMES Branch U-100 DAILY INSULN) 100 BEFORE unit/mL MEAL(S) injection ondansetron Yes [id number] DISSOLVE 1 [facility] 4 mg 9-06 TABLET IN ity of disintegrat 00:00: MOUTH [place] ing tablet 00 EVERY 8 Medica l HOURS Branch NEEDED FOR NAUSEA AND VOMITING FOR UP TO 4 DAYS insulin NPH Yes [id number] INJECT 20 [facility] (NOVOLIN N 9-06 UNITS ity of NPH U-100 00:00: [place] INSULIN) 00 USLY ONCE [facility] 100 unit/mL DAILY WITH Br anch injection BREAKFAST insulin Yes [id number] INJECT 15 [facility] regular 9-06 UNITS ity of human 00:00: SUBCUTANEO [place] (NOVOLIN R 00 USLY THREE Med ical REGULAR TIMES Branch U-100 DAILY INSULN) 100 BEFORE unit/mL MEAL(S) injection ondansetron Yes [id number] DISSOLVE 1 [facility] 4 mg 9-06 TABLET IN ity of disintegrat 00:00: MOUTH [place] ing tablet 00 EVERY 8 Medica l HOURS Branch NEEDED FOR NAUSEA AND VOMITING FOR UP TO 4 DAYS insulin NPH Yes [id number] INJECT 20 [facility] (NOVOLIN N 9-06 UNITS ity of NPH U-100 00:00: [place] INSULIN) 00 USLY ONCE Med[facility] l 100 unit/mL DAILY WITH Br anch injection BREAKFAST insulin Yes [id number] INJECT 15 [facility] regular 9-06 UNITS ity of human 00:00: SUBCUTANEO [place] (NOVOLIN R 00 USLY THREE Med ical REGULAR TIMES Branch U-100 DAILY INSULN) 100 BEFORE unit/mL MEAL(S) injection ondansetron Yes [id number] DISSOLVE 1 [facility] 4 mg 9-06 TABLET IN ity of disintegrat 00:00: MOUTH [place] ing tablet 00 EVERY 8 Medica l HOURS Branch NEEDED FOR NAUSEA AND VOMITING FOR UP TO 4 DAYS insulin NPH Yes [id number] INJECT 20 [facility] (NOVOLIN N 9-06 UNITS ity of NPH U-100 00:00: [place] INSULIN) 00 USLY ONCE Med[facility] l 100 unit/mL DAILY WITH Br anch injection BREAKFAST insulin Yes [id number] INJECT 15 [facility] regular 9-06 UNITS ity of human 00:00: SUBCUTANEO [place] (NOVOLIN R 00 USLY THREE Med ical REGULAR TIMES Branch U-100 DAILY INSULN) 100 BEFORE unit/mL MEAL(S) injection ondansetron Yes [id number] DISSOLVE 1 [facility] 4 mg 9-06 TABLET IN ity of disintegrat 00:00: MOUTH [place] ing tablet 00 EVERY 8 Medica l HOURS Branch NEEDED FOR NAUSEA AND VOMITING FOR UP TO 4 DAYS insulin NPH Yes [id number] INJECT 20 [facility] (NOVOLIN N 9-06 UNITS ity of NPH U-100 00:00: [place] INSULIN) 00 USLY ONCE Med[facility] 100 unit/mL DAILY WITH Br anch injection BREAKFAST insulin Yes [id number] INJECT 15 [facility] regular 9-06 UNITS ity of human 00:00: SUBCUTANEO [place] (NOVOLIN R 00 USLY THREE Med ical REGULAR TIMES Branch U-100 DAILY INSULN) 100 BEFORE unit/mL MEAL(S) injection ondansetron Yes [id number] DISSOLVE 1 [facility] 4 mg 9-06 TABLET IN ity of disintegrat 00:00: MOUTH [place] ing tablet 00 EVERY 8 Medica l HOURS Branch NEEDED FOR NAUSEA AND VOMITING FOR UP TO 4 DAYS insulin NPH Yes [id number] INJECT 20 [facility] (NOVOLIN N 9-06 UNITS ity of NPH U-100 00:00: [place] INSULIN) 00 USLY ONCE Med[facility] l 100 unit/mL DAILY WITH Br anch injection BREAKFAST insulin Yes [id number] INJECT 15 [facility] regular 9-06 UNITS ity of human 00:00: SUBCUTANEO [place] (NOVOLIN R 00 USLY THREE Med ical REGULAR TIMES Branch U-100 DAILY INSULN) 100 BEFORE unit/mL MEAL(S) injection ondansetron Yes [id number] DISSOLVE 1 [facility] 4 mg 9-06 TABLET IN ity of disintegrat 00:00: MOUTH [place] ing tablet 00 EVERY 8 Medica l HOURS Branch NEEDED FOR NAUSEA AND VOMITING FOR UP TO 4 DAYS insulin NPH Yes [id number] INJECT 20 [facility] (NOVOLIN N 9-06 UNITS ity of NPH U-100 00:00: [place] INSULIN) 00 USLY ONCE Med[facility] l 100 unit/mL DAILY WITH Br anch injection BREAKFAST insulin Yes [id number] INJECT 15 [facility] regular 9-06 UNITS ity of human 00:00: SUBCUTANEO [place] (NOVOLIN R 00 USLY THREE Med ical REGULAR TIMES Branch U-100 DAILY INSULN) 100 BEFORE unit/mL MEAL(S) injection insulin NPH Yes [id number] INJECT 20 [facility] (NOVOLIN N 9-06 UNITS ity of NPH U-100 00:00: [place] INSULIN) 00 USLY ONCE Med[facility] l 100 unit/mL DAILY WITH Br anch injection BREAKFAST insulin Yes [id number] INJECT 15 [facility] regular 9-06 UNITS ity of human 00:00: SUBCUTANEO [place] (NOVOLIN R 00 USLY THREE Med ical REGULAR TIMES Branch U-100 DAILY INSULN) 100 BEFORE unit/mL MEAL(S) injection insulin NPH Yes [id number] INJECT 20 [facility] (NOVOLIN N 9-06 UNITS ity of NPH U-100 00:00: [place] INSULIN) 00 USLY ONCE Med[facility] 100 unit/mL DAILY WITH Br anch injection BREAKFAST insulin Yes [id number] INJECT 15 [facility] regular 9-06 UNITS ity of human 00:00: SUBCUTANEO [place] (NOVOLIN R 00 USLY THREE Med ical REGULAR TIMES Branch U-100 DAILY INSULN) 100 BEFORE unit/mL MEAL(S) injection insulin NPH Yes [id number] INJECT 20 [facility] (NOVOLIN N 9-06 UNITS ity of NPH U-100 00:00: [place] INSULIN) 00 USLY ONCE Med[facility] l 100 unit/mL DAILY WITH Br anch injection BREAKFAST insulin Yes [id number] INJECT 15 [facility] regular 9-06 UNITS ity of human 00:00: SUBCUTANEO [place] (NOVOLIN R 00 USLY THREE Med ical REGULAR TIMES Branch U-100 DAILY INSULN) 100 BEFORE unit/mL MEAL(S) injection insulin NPH Yes [id number] INJECT 20 [facility] (NOVOLIN N 9-06 UNITS ity of NPH U-100 00:00: [place] INSULIN) 00 USLY ONCE Med[facility] l 100 unit/mL DAILY WITH Br anch injection BREAKFAST insulin Yes [id number] INJECT 15 [facility] regular 9-06 UNITS ity of human 00:00: SUBCUTANEO [place] (NOVOLIN R 00 USLY THREE Med ical REGULAR TIMES Branch U-100 DAILY INSULN) 100 BEFORE unit/mL MEAL(S) injection insulin NPH Yes [id number] INJECT 20 [facility] (NOVOLIN N 9-06 UNITS ity of NPH U-100 00:00: [place] INSULIN) 00 USLY ONCE Med[facility] l 100 unit/mL DAILY WITH Br anch injection BREAKFAST insulin Yes [id number] INJECT 15 [facility] regular 9-06 UNITS ity of human 00:00: SUBCUTANEO [place] (NOVOLIN R 00 USLY THREE Med ical REGULAR TIMES Branch U-100 DAILY INSULN) 100 BEFORE unit/mL MEAL(S) injection insulin NPH Yes [id number] INJECT 20 [facility] (NOVOLIN N 9-06 UNITS ity of NPH U-100 00:00: [place] INSULIN) 00 USLY ONCE Medica l 100 unit/mL DAILY WITH Br anch injection BREAKFAST insulin Yes [id number] INJECT 15 [facility] regular 9-06 UNITS ity of human 00:00: SUBCUTANEO [place] (NOVOLIN R 00 USLY THREE Med ical REGULAR TIMES Branch U-100 DAILY INSULN) 100 BEFORE unit/mL MEAL(S) injection insulin NPH Yes [id number] INJECT 20 [facility] (NOVOLIN N 9-06 UNITS ity of NPH U-100 00:00: [place] INSULIN) 00 USLY ONCE Medica l 100 unit/mL DAILY WITH Br anch injection BREAKFAST insulin Yes [id number] INJECT 15 [facility] regular 9-06 UNITS ity of human 00:00: SUBCUTANEO [place] (NOVOLIN R 00 USLY THREE Med ical REGULAR TIMES Branch U-100 DAILY INSULN) 100 BEFORE unit/mL MEAL(S) injection insulin NPH Yes [id number] INJECT 20 [facility] (NOVOLIN N 9-06 UNITS ity of NPH U-100 00:00: [place] INSULIN) 00 USLY ONCE Medica l 100 unit/mL DAILY WITH Br anch injection BREAKFAST insulin Yes [id number] INJECT 15 [facility] regular 9-06 UNITS ity of human 00:00: SUBCUTANEO [place] (NOVOLIN R 00 USLY THREE Med ical REGULAR TIMES Branch U-100 DAILY INSULN) 100 BEFORE unit/mL MEAL(S) injection insulin NPH Yes [id number] INJECT 20 [facility] (NOVOLIN N 9-06 UNITS ity of NPH U-100 00:00: [place] INSULIN) 00 USLY ONCE [facility] l 100 unit/mL DAILY WITH Br anch injection BREAKFAST insulin Yes [id number] INJECT 15 [facility] regular 9-06 UNITS ity of human 00:00: SUBCUTANEO [place] (NOVOLIN R 00 USLY THREE Med ical REGULAR TIMES Branch U-100 DAILY INSULN) 100 BEFORE unit/mL MEAL(S) injection insulin NPH Yes [id number] INJECT 20 [facility] (NOVOLIN N 9-06 UNITS ity of NPH U-100 00:00: [place] INSULIN) 00 USLY ONCE [facility] 100 unit/mL DAILY WITH Br anch injection BREAKFAST insulin Yes [id number] INJECT 15 [facility] regular 9-06 UNITS ity of human 00:00: SUBCUTANEO [place] (NOVOLIN R 00 USLY THREE Med ical REGULAR TIMES Branch U-100 DAILY INSULN) 100 BEFORE unit/mL MEAL(S) injection insulin NPH Yes [id number] INJECT 20 [facility] (NOVOLIN N 9-06 UNITS ity of NPH U-100 00:00: [place] INSULIN) 00 USLY ONCE [facility] 100 unit/mL DAILY WITH Br anch injection BREAKFAST insulin Yes [id number] INJECT 15 [facility] regular 9-06 UNITS ity of human 00:00: SUBCUTANEO [place] (NOVOLIN R 00 USLY THREE Med ical REGULAR TIMES Branch U-100 DAILY INSULN) 100 BEFORE unit/mL MEAL(S) injection insulin NPH Yes [id number] INJECT 20 [facility] (NOVOLIN N 9-06 UNITS ity of NPH U-100 00:00: [place] INSULIN) 00 USLY ONCE Medica l 100 unit/mL DAILY WITH Br anch injection BREAKFAST insulin Yes [id number] INJECT 15 [facility] regular 9-06 UNITS ity of human 00:00: SUBCUTANEO [place] (NOVOLIN R 00 USLY THREE Med ical REGULAR TIMES Branch U-100 DAILY INSULN) 100 BEFORE unit/mL MEAL(S) injection insulin NPH Yes [id number] INJECT 20 [facility] (NOVOLIN N 9-06 UNITS ity of NPH U-100 00:00: [place] INSULIN) 00 USLY ONCE Med[facility] l 100 unit/mL DAILY WITH Br anch injection BREAKFAST insulin Yes [id number] INJECT 15 [facility] regular 9-06 UNITS [facility] human 00:[facility] [place] (NOVOLIN R 00 USLY THREE Med ical REGULAR TIMES Branch U-100 DAILY INSULN) 100 BEFORE unit/mL MEAL(S) injection insulin NPH Yes [id number] INJECT 20 [facility] (NOVOLIN N 9-06 UNITS ity of NPH U-100 00:00: [place] INSULIN) 00 USLY ONCE Med[facility] l 100 unit/mL DAILY WITH Br anch injection BREAKFAST insulin Yes [id number] INJECT 15 [facility] regular 9-06 UNITS ity of human 00:00: [facility] [place] (NOVOLIN R 00 USLY THREE Med ical REGULAR TIMES Branch U-100 DAILY INSULN) 100 BEFORE unit/mL MEAL(S) injection insulin NPH Yes [id number] INJECT 20 [facility] (NOVOLIN N 9-06 UNITS ity of NPH U-100 00:00: [place] INSULIN) 00 USLY ONCE Med[facility] l 100 unit/mL DAILY WITH Br anch injection BREAKFAST insulin Yes [id number] INJECT 15 [facility] regular 9-06 UNITS ity of human 00:00: SUBCUTANEO [place] (NOVOLIN R 00 USLY THREE Med ical REGULAR TIMES Branch U-100 DAILY INSULN) 100 BEFORE unit/mL MEAL(S) injection insulin NPH Yes [id number] INJECT 20 [facility] (NOVOLIN N 9-06 UNITS ity of NPH U-100 00:00: [place] INSULIN) 00 USLY ONCE Med[facility] l 100 unit/mL DAILY WITH Br anch injection BREAKFAST insulin Yes [id number] INJECT 15 [facility] regular 9-06 UNITS ity of human 00:00: SUBCUTANEO [place] (NOVOLIN R 00 USLY THREE Med ical REGULAR TIMES Branch U-100 DAILY INSULN) 100 BEFORE unit/mL MEAL(S) injection insulin NPH Yes [id number] INJECT 20 [facility] (NOVOLIN N 9-06 UNITS ity of NPH U-100 00:00: [place] INSULIN) 00 USLY ONCE Medica l 100 unit/mL DAILY WITH Br anch injection BREAKFAST insulin Yes [id number] INJECT 15 [facility] regular 9-06 UNITS ity of human 00:00: SUBCUTANEO [place] (NOVOLIN R 00 USLY THREE Med ical REGULAR TIMES Branch U-100 DAILY INSULN) 100 BEFORE unit/mL MEAL(S) injection insulin NPH Yes [id number] INJECT 20 [facility] (NOVOLIN N 9-06 UNITS ity of NPH U-100 00:00: [place] INSULIN) 00 USLY ONCE Med[facility] l 100 unit/mL DAILY WITH Br anch injection BREAKFAST insulin Yes [id number] INJECT 15 [facility] regular 9-06 UNITS ity of human 00:00: SUBCUTANEO [place] (NOVOLIN R 00 USLY THREE Med ical REGULAR TIMES Branch U-100 DAILY INSULN) 100 BEFORE unit/mL MEAL(S) injection insulin NPH Yes [id number] INJECT 20 [facility] (NOVOLIN N 9-06 UNITS ity of NPH U-100 00:00: [place] INSULIN) 00 USLY ONCE Medica l 100 unit/mL DAILY WITH Br anch injection BREAKFAST insulin Yes [id number] INJECT 15 [facility] regular 9-06 UNITS ity of human 00:00: SUBCUTANEO [place] (NOVOLIN R 00 USLY THREE Med ical REGULAR TIMES Branch U-100 DAILY INSULN) 100 BEFORE unit/mL MEAL(S) injection insulin NPH Yes [id number] INJECT 20 [facility] (NOVOLIN N 9-06 UNITS ity of NPH U-100 00:00: [place] INSULIN) 00 USLY ONCE Med[facility] 100 unit/mL DAILY WITH Br anch injection BREAKFAST insulin Yes [id number] INJECT 15 [facility] regular 9-06 UNITS ity of human 00:00: SUBCUTANEO [place] (NOVOLIN R 00 USLY THREE Med ical REGULAR TIMES Branch U-100 DAILY INSULN) 100 BEFORE unit/mL MEAL(S) injection insulin NPH Yes [id number] INJECT 20 [facility] (NOVOLIN N 9-06 UNITS ity of NPH U-100 00:00: [place] INSULIN) 00 USLY ONCE [facility] 100 unit/mL DAILY WITH Br anch injection BREAKFAST insulin Yes [id number] INJECT 15 [facility] regular 9-06 UNITS ity of human 00:00: SUBCUTANEO [place] (NOVOLIN R 00 USLY THREE Med ical REGULAR TIMES Branch U-100 DAILY INSULN) 100 BEFORE unit/mL MEAL(S) injection insulin NPH Yes [id number] INJECT 20 [facility] (NOVOLIN N 9-06 UNITS ity of NPH U-100 00:00: [place] INSULIN) 00 USLY ONCE Med[facility] 100 unit/mL DAILY WITH Br anch injection BREAKFAST insulin Yes [id number] INJECT 15 [facility] regular 9-06 UNITS ity of human 00:00: SUBCUTANEO [place] (NOVOLIN R 00 USLY THREE Med ical REGULAR TIMES Branch U-100 DAILY INSULN) 100 BEFORE unit/mL MEAL(S) injection insulin NPH Yes [id number] INJECT 20 [facility] (NOVOLIN N 9-06 UNITS ity of NPH U-100 00:00: [place] INSULIN) 00 USLY ONCE Medica l 100 unit/mL DAILY WITH Br anch injection BREAKFAST insulin Yes [id number] INJECT 15 [facility] regular 9-06 UNITS ity of human 00:00: SUBCUTANEO [place] (NOVOLIN R 00 USLY THREE Med ical REGULAR TIMES Branch U-100 DAILY INSULN) 100 BEFORE unit/mL MEAL(S) injection insulin NPH Yes [id number] INJECT 20 [facility] (NOVOLIN N 9-06 UNITS ity of NPH U-100 00:00: [place] INSULIN) 00 USLY ONCE Med[facility] l 100 unit/mL DAILY WITH Br anch injection BREAKFAST insulin Yes [id number] INJECT 15 [facility] regular 9-06 UNITS ity of human 00:00: SUBCUTANEO [place] (NOVOLIN R 00 USLY THREE Med ical REGULAR TIMES Branch U-100 DAILY INSULN) 100 BEFORE unit/mL MEAL(S) injection insulin NPH Yes [id number] INJECT 20 [facility] (NOVOLIN N 9-06 UNITS ity of NPH U-100 00:00: [place] INSULIN[place] 00 USLY ONCE Med[facility] l 100 unit/mL DAILY WITH Br anch injection BREAKFAST insulin Yes [id number] INJECT 15 [facility] regular 9-06 UNITS ity of human 00:00: SUBCUTANEO [place] (NOVOLIN R 00 USLY THREE Med ical REGULAR TIMES Branch U-100 DAILY INSULN) 100 BEFORE unit/mL MEAL(S) injection insulin NPH Yes [id number] INJECT 20 [facility] (NOVOLIN N 9-06 UNITS ity of NPH U-100 00:00: [place] INSULIN[place] 00 USLY ONCE Med[facility] l 100 unit/mL DAILY WITH Br anch injection BREAKFAST insulin Yes [id number] INJECT 15 [facility] regular 9-06 UNITS ity of human 00:00: SUBCUTANEO [place] (NOVOLIN R 00 USLY THREE Med ical REGULAR TIMES Branch U-100 DAILY INSULN) 100 BEFORE unit/mL MEAL(S) injection insulin NPH Yes [id number] INJECT 20 [facility] (NOVOLIN N 9-06 UNITS ity of NPH U-100 00:00: [place]ULIN[place] 00 USLY ONCE Med[facility] 100 unit/mL DAILY WITH Br anch injection BREAKFAST insulin Yes [id number] INJECT 15 [facility] regular 9-06 UNITS ity of human 00:00: SUBCUTANEO [place] (NOVOLIN R 00 USLY THREE Med ical REGULAR TIMES Branch U-100 DAILY INSULN) 100 BEFORE unit/mL MEAL(S) injection insulin NPH 2022- No [id number] INJECT 20 [facility] (NOVOLIN N 9-06 02-01 UNITS ity of NPH U-100 00:00: 00:00 [place] INSULIN) 00 :00 USLY ONCE Medica l 100 unit/mL DAILY WITH Br anch injection BREAKFAST insulin 2022- No [id number] INJECT 15 [facility] regular 9-06 02-01 UNITS ity of human 00:00: 00:00 SUBCUTANEO [place] (NOVOLIN R 00 :00 USLY THREE Med ical REGULAR TIMES Branch U-100 DAILY INSULN) 100 BEFORE unit/mL MEAL(S) injection insulin NPH 2022- No [id number] INJECT 20 [facility] (NOVOLIN N 04-18 UNITS ity of NPH U-100 00:00: 00:00 [place] INSULIN) 00 :00 USLY ONCE Medica l 100 unit/mL DAILY WITH Br anch injection BREAKFAST insulin 2022- No [id number] INJECT 15 [facility] regular 04-18 UNITS ity of human 00:00: 00:00 SUBCUTANEO [place] (NOVOLIN R 00 :00 USLY THREE Med ical REGULAR TIMES Branch U-100 DAILY INSULN) 100 BEFORE unit/mL MEAL(S) injection insulin NPH 2022- No [id number] INJECT 20 [facility] (NOVOLIN N 04-18 UNITS ity of NPH U-100 00:00: 00:00 [place] INSULIN) 00 :00 USLY ONCE Medica l 100 unit/mL DAILY WITH Br anch injection BREAKFAST insulin 2022- No [id number] INJECT 15 [facility] regular 04-18 UNITS ity of human 00:00: 00:00 [facility] (NOVOLIN R 00 :00 USLY THREE Med ical REGULAR TIMES Branch U-100 DAILY INSULN) 100 BEFORE unit/mL MEAL(S) injection ondansetron 2021- No [id number] DISSOLVE 1 [facility] 4 mg 04-18 TABLET IN ity of disintegrat 00:00: 00:[place] 00 :00 EVERY 8 Medica l HOURS Branch NEEDED FOR NAUSEA AND VOMITING FOR UP TO 4 DAYS ondansetron 2021- No [id number] DISSOLVE 1 [facility] 4 mg 04-18 TABLET IN ity of disintegrat 00:00: 00:[place] 00 :00 EVERY 8 Medica l HOURS Branch NEEDED FOR NAUSEA AND VOMITING FOR UP TO 4 DAYS ondansetron 2021- No [id number] DISSOLVE 1 [facility] 4 mg 04-18 TABLET IN ity of disintegrat 00:00: 00:[place] 00 :00 EVERY 8 Medica l HOURS Branch NEEDED FOR NAUSEA AND VOMITING FOR UP TO 4 DAYS ondansetron 2021- No [id number] DISSOLVE 1 [facility] 4 mg 04-18 TABLET IN ity of disintegrat 00:00: 00:[place] :00 EVERY 8 Medica l HOURS Branch NEEDED FOR NAUSEA AND VOMITING FOR UP TO 4 DAYS gabapentin 2021-2021- No [id number] 400mg Take 1 [facility] 400 mg 04-18 9100 capsule by ity of capsule 00:00: 00:00 mouth in [place] 00 :00 the Medical morning Branch and 1 capsule at noon and 1 capsule in the evening. gabapentin 2021- No [id number] 400mg Take 1 [facility] 400 mg 04-18 9100 capsule by ity of capsule 00:00: 00:00 mouth in [place] 00 :00 the Medical morning Branch and 1 capsule at noon and 1 capsule in the evening. PROMETHAZIN 0 Yes [id number] TAKE 2 [facility] E 12.5 mg 8-15 TABLETS BY ity of tablet 00:00: MOUTH [place] 00 EVERY 6 Medical HOURS Branch NEEDED FOR VERTIGO PROMETHAZIN 0 Yes [id number] TAKE 2 [facility] E 12.5 mg 8-15 TABLETS BY ity of tablet 00:00: MOUTH [place] 00 EVERY 6 Medical HOURS Branch NEEDED FOR VERTIGO PROMETHAZIN 2021-0 Yes [id number] TAKE 2 [facility] 12.5 mg 8-15 TABLETS BY [facility] tablet 00:00: MOUTH [place] 00 EVERY 6 Medical HOURS Branch NEEDED FOR VERTIGO PROMETHAZIN 2021-0 Yes [id number] TAKE 2 [facility] 12.5 mg 8-15 TABLETS BY [facility] tablet 00:00: MOUTH [place] 00 EVERY 6 Medical HOURS Branch NEEDED FOR VERTIGO PROMETHAZIN 2021-0 Yes [id number] TAKE 2 [facility] E 12.5 mg 8-15 TABLETS BY [facility] tablet 00:00: MOUTH [place] 00 EVERY 6 Medical HOURS Branch NEEDED FOR VERTIGO PROMETHAZIN 2021-0 Yes [id number] TAKE 2 [facility] 12.5 mg 8-15 TABLETS BY [facility] tablet 00:00: MOUTH [place] 00 EVERY 6 Medical HOURS Branch NEEDED FOR VERTIGO PROMETHAZIN Yes [id number] TAKE 2 [facility] 12.5 mg 8-15 TABLETS BY [facility] tablet 00:00: MOUTH [place] 00 EVERY 6 Medical HOURS Branch NEEDED FOR VERTIGO PROMETHAZIN 0 Yes [id number] TAKE 2 [facility] 12.5 mg 8-15 TABLETS BY [facility] tablet 00:00: MOUTH [place] 00 EVERY 6 Medical HOURS Branch NEEDED FOR VERTIGO PROMETHAZIN Yes [id number] TAKE 2 [facility] E 12.5 mg 8-15 TABLETS BY [facility] tablet 00:00: MOUTH [place] 00 EVERY 6 Medical HOURS Branch NEEDED FOR VERTIGO PROMETHAZIN 0 2021- No [id number] TAKE 2 [facility] E 12.5 mg 8-15 10-10 TABLETS BY [facility] tablet 00:00: 00:00 MOUTH [place] 00 :00 EVERY 6 Medical HOURS Branch NEEDED FOR VERTIGO PROMETHAZIN 0 202- No [id number] TAKE 2 [facility] E 12.5 mg 8-15 10-10 TABLETS BY [facility] tablet 00:00: 00:00 MOUTH [place] 00 :00 EVERY 6 Medical HOURS Branch NEEDED FOR VERTIGO PROMETHAZIN 0 2021- No [id number] TAKE 2 [facility] E 12.5 mg 8-15 10-10 TABLETS BY [facility] tablet 00:00: 00:00 MOUTH [place] 00 :00 EVERY 6 Medical HOURS Branch NEEDED FOR VERTIGO atorvastati Yes [id number] 20mg Take 1 [facility] n 20 mg 6-06 tablet by [facility] tablet 00:00: mouth at [place] 00 bedtime. Medical Branch escitalopra Yes [id number] 20mg Take 1 [facility] m oxalate 6-06 tablet by [facility] o f (LEXAPRO) 00:00: mouth [place] 20 mg 00 daily. Medical tablet Branch glyBURIDE 5 Yes [id number] TAKE 1 [facility] mg tablet 6-06 TABLET BY [facility] o f 00:00: MOUTH [place] 00 TWICE Medical DAILY WITH Branch MEALS (NEEDS FOLLOW UP VISIT FOR FURTHER REFILLS) atorvastati Yes [id number] 20mg Take 1 [facility] n 20 mg 6-06 tablet by [facility] tablet 00:00: mouth at [place] 00 bedtime. Medical Branch escitalopra Yes [id number] 20mg Take 1 [facility] oxalate 6-06 tablet by [facility] o f (LEXAPRO) 00:00: mouth [place] 20 mg 00 daily. Medical tablet Branch glyBURIDE 5 Yes [id number] TAKE 1 [facility] mg tablet 6-06 TABLET BY [facility] o f 00:00: MOUTH [place] 00 TWICE Medical DAILY WITH Branch MEALS (NEEDS FOLLOW UP VISIT FOR FURTHER REFILLS) atorvastati Yes [id number] 20mg Take 1 [facility] n 20 mg 6-06 tablet by [facility] tablet 00:00: mouth at [place] 00 bedtime. Medical Branch escitalopra Yes [id number] 20mg Take 1 [facility] oxalate 6-06 tablet by [facility] o f (LEXAPRO) 00:00: mouth [place] 20 mg 00 daily. Medical tablet Branch glyBURIDE 5 Yes [id number] TAKE 1 [facility] mg tablet 6-06 TABLET BY [facility] o f 00:00: MOUTH [place] 00 TWICE Medical DAILY WITH Branch MEALS (NEEDS FOLLOW UP VISIT FOR FURTHER REFILLS) atorvastati Yes [id number] 20mg Take 1 [facility] n 20 mg 6-06 tablet by [facility] of tablet 00:00: mouth at [place] 00 bedtime. Medical Branch escitalopra Yes [id number] 20mg Take 1 [facility] oxalate 6-06 tablet by [facility] o f (LEXAPRO) 00:00: mouth [place] 20 mg 00 daily. Medical tablet Branch glyBURIDE 5 Yes [id number] TAKE 1 [facility] mg tablet 6-06 TABLET BY [facility] o f 00:00: MOUTH [place] 00 TWICE Medical DAILY WITH Branch MEALS (NEEDS FOLLOW UP VISIT FOR FURTHER REFILLS) atorvastati Yes [id number] 20mg Take 1 [facility] n 20 mg 6-06 tablet by [facility] of tablet 00:00: mouth at [place] 00 bedtime. Medical Branch escitalopra Yes [id number] 20mg Take 1 [facility] m oxalate 6-06 tablet by [facility] o f (LEXAPRO) 00:00: mouth [place] 20 mg 00 daily. Medical tablet Branch glyBURIDE 5 Yes [id number] TAKE 1 [facility] mg tablet 6-06 TABLET BY [facility] o f 00:00: MOUTH [place] 00 TWICE Medical DAILY WITH Branch MEALS (NEEDS FOLLOW UP VISIT FOR FURTHER REFILLS) atorvastati Yes [id number] 20mg Take 1 [facility] n 20 mg 6-06 tablet by [facility] of tablet 00:00: mouth at [place] 00 bedtime. Medical Branch escitalopra Yes [id number] 20mg Take 1 [facility] m oxalate 6-06 tablet by [facility] o f (LEXAPRO) 00:00: mouth [place] 20 mg 00 daily. Medical tablet Branch glyBURIDE 5 Yes [id number] TAKE 1 [facility] mg tablet 6-06 TABLET BY [facility] o f 00:00: MOUTH [place] 00 TWICE Medical DAILY WITH Branch MEALS (NEEDS FOLLOW UP VISIT FOR FURTHER REFILLS) atorvastati Yes [id number] 20mg Take 1 [facility] n 20 mg 6-06 tablet by [facility] of tablet 00:00: mouth at [place] 00 bedtime. Medical Branch escitalopra Yes [id number] 20mg Take 1 [facility] m oxalate 6-06 tablet by [facility] o f (LEXAPRO) 00:00: mouth [place] 20 mg 00 daily. Medical tablet Branch glyBURIDE 5 Yes [id number] TAKE 1 [facility] mg tablet 6-06 TABLET BY [facility] o f 00:00: MOUTH [place] 00 TWICE Medical DAILY WITH Branch MEALS (NEEDS FOLLOW UP VISIT FOR FURTHER REFILLS) atorvastati Yes [id number] 20mg Take 1 [facility] n 20 mg 6-06 tablet by [facility] of tablet 00:00: mouth at [place] 00 bedtime. Medical Branch escitalopra Yes [id number] 20mg Take 1 [facility] oxalate 6-06 tablet by [facility] o f (LEXAPRO) 00:00: mouth [place] 20 mg 00 daily. Medical tablet Branch glyBURIDE 5 Yes [id number] TAKE 1 [facility] mg tablet 6-06 TABLET BY [facility] o f 00:00: MOUTH [place] 00 TWICE Medical DAILY WITH Branch MEALS (NEEDS FOLLOW UP VISIT FOR FURTHER REFILLS) atorvastati Yes [id number] 20mg Take 1 [facility] n 20 mg 6-06 tablet by [facility] of tablet 00:00: mouth at [place] 00 bedtime. Medical Branch escitalopra 2022-0 Yes [id number] 20mg Take 1 [facility] oxalate 6-06 tablet by [facility] o f (LEXAPRO) 00:00: mouth [place] 20 mg 00 daily. Medical tablet Branch glyBURIDE 5 Yes [id number] TAKE 1 [facility] mg tablet 6-06 TABLET BY [facility] o f 00:00: MOUTH [place] 00 TWICE Medical DAILY WITH Branch MEALS (NEEDS FOLLOW UP VISIT FOR FURTHER REFILLS) atorvastati Yes [id number] 20mg Take 1 [facility] n 20 mg 6-06 tablet by [facility] of tablet 00:00: mouth at [place] 00 bedtime. Medical Branch escitalopra Yes [id number] 20mg Take 1 [facility] oxalate 6-06 tablet by [facility] o f (LEXAPRO) 00:00: mouth [place] 20 mg 00 daily. Medical tablet Branch glyBURIDE 5 Yes [id number] TAKE 1 [facility] mg tablet 6-06 TABLET BY [facility] o f 00:00: MOUTH [place] 00 TWICE Medical DAILY WITH Branch MEALS (NEEDS FOLLOW UP VISIT FOR FURTHER REFILLS) atorvastati Yes [id number] 20mg Take 1 [facility] n 20 mg 6-06 tablet by [facility] of tablet 00:00: mouth at [place] 00 bedtime. Medical Branch escitalopra Yes [id number] 20mg Take 1 [facility] m oxalate 6-06 tablet by [facility] o f (LEXAPRO) 00:00: mouth [place] 20 mg 00 daily. Medical tablet Branch glyBURIDE 5 Yes [id number] TAKE 1 [facility] mg tablet 6-06 TABLET BY [facility] o f 00:00: MOUTH [place] 00 TWICE Medical DAILY WITH Branch MEALS (NEEDS FOLLOW UP VISIT FOR FURTHER REFILLS) atorvastati Yes [id number] 20mg Take 1 [facility] n 20 mg 6-06 tablet by [facility] of tablet 00:00: mouth at [place] 00 bedtime. Medical Branch escitalopra Yes [id number] 20mg Take 1 [facility] m oxalate 6-06 tablet by [facility] o f (LEXAPRO) 00:00: mouth [place] 20 mg 00 daily. Medical tablet Branch glyBURIDE 5 Yes [id number] TAKE 1 [facility] mg tablet 6-06 TABLET BY [facility] o f 00:00: MOUTH [place] 00 TWICE Medical DAILY WITH Branch MEALS (NEEDS FOLLOW UP VISIT FOR FURTHER REFILLS) atorvastati Yes [id number] 20mg Take 1 [facility] n 20 mg 6-06 tablet by [facility] of tablet 00:00: mouth at [place] 00 bedtime. Medical Branch escitalopra Yes [id number] 20mg Take 1 [facility] oxalate 6-06 tablet by [facility] o f (LEXAPRO) 00:00: mouth [place] 20 mg 00 daily. Medical tablet Branch glyBURIDE 5 Yes [id number] TAKE 1 [facility] mg tablet 6-06 TABLET BY [facility] o f 00:00: MOUTH [place] 00 TWICE Medical DAILY WITH Branch MEALS (NEEDS FOLLOW UP VISIT FOR FURTHER REFILLS) atorvastati Yes [id number] 20mg Take 1 [facility] n 20 mg 6-06 tablet by [facility] of tablet 00:00: mouth at [place] 00 bedtime. Medical Branch escitalopra Yes [id number] 20mg Take 1 [facility] m oxalate 6-06 tablet by [facility] o f (LEXAPRO) 00:00: mouth [place] 20 mg 00 daily. Medical tablet Branch glyBURIDE 5 Yes [id number] TAKE 1 [facility] mg tablet 6-06 TABLET BY [facility] o f 00:00: MOUTH [place] 00 TWICE Medical DAILY WITH Branch MEALS (NEEDS FOLLOW UP VISIT FOR FURTHER REFILLS) atorvastati Yes [id number] 20mg Take 1 [facility] n 20 mg 6-06 tablet by [facility] of tablet 00:00: mouth at [place] 00 bedtime. Medical Branch escitalopra Yes [id number] 20mg Take 1 [facility] m oxalate 6-06 tablet by [facility] o f (LEXAPRO) 00:00: mouth [place] 20 mg 00 daily. Medical tablet Branch glyBURIDE 5 Yes [id number] TAKE 1 [facility] mg tablet 6-06 TABLET BY [facility] o f 00:00: MOUTH [place] 00 TWICE Medical DAILY WITH Branch MEALS (NEEDS FOLLOW UP VISIT FOR FURTHER REFILLS) atorvastati Yes [id number] 20mg Take 1 [facility] n 20 mg 6-06 tablet by [facility] of tablet 00:00: mouth at [place] 00 bedtime. Medical Branch empaglifloz Yes [id number] 25mg Take 1 [facility] in 6-06 tablet by [facility] of ([facility]) 00:00: mouth [place] 25 mg Tab 00 every Medical morning. Branch escitalopra Yes [id number] 20mg Take 1 [facility] m oxalate 6-06 tablet by ity o f (LEXAPRO) 00:00: mouth [place] 20 mg 00 daily. Medical tablet Branch glyBURIDE 5 Yes [id number] TAKE 1 [facility] mg tablet 6-06 TABLET BY ity o f 00:00: MOUTH [place] 00 TWICE Medical DAILY WITH Branch MEALS (NEEDS FOLLOW UP VISIT FOR FURTHER REFILLS) NUVARING Yes [id number] 1{each} Insert 1 [facility] (NUVARING) 6-06 Each into ity of 0.12-0.015 00:00: vagina [place] mg/24 hr 00 once every Medic al vaginal month. Branch insert Insert vaginally and leave in place for 3 consecutiv e weeks, then remove for 1 week. atorvastati Yes [id number] 20mg Take 1 [facility] n 20 mg 6-06 tablet by [facility] of tablet 00:00: mouth at [place] 00 bedtime. Medical Branch empaglifloz Yes [id number] 25mg Take 1 [facility] in 6-06 tablet by [facility] of ([place]) 00:00: mouth [place] 25 mg Tab 00 every Medical morning. Branch escitalopra Yes [id number] 20mg Take 1 [facility] m oxalate 6-06 tablet by ity o f (LEXAPRO) 00:00: mouth [place] 20 mg 00 daily. Medical tablet Branch glyBURIDE 5 Yes [id number] TAKE 1 [facility] mg tablet 6-06 TABLET BY it[facility] o f 00:00: MOUTH [place] 00 TWICE Medical DAILY WITH Branch MEALS (NEEDS FOLLOW UP VISIT FOR FURTHER REFILLS) NUVARING Yes [id number] 1{each} Insert 1 [facility] (NUVARING) 6-06 Each into ity of 0.12-0.015 00:00: vagina [place] mg/24 hr 00 once every Medic al vaginal month. Branch insert Insert vaginally and leave in place for 3 consecutiv e weeks, then remove for 1 week. atorvastati Yes [id number] 20mg Take 1 [facility] n 20 mg 6-06 tablet by [facility] of tablet 00:00: mouth at [place] 00 bedtime. Medical Branch empaglifloz 0 Yes [id number] 25mg Take 1 [facility] in 6-06 tablet by [facility] of ([place]) 00:00: mouth [place] 25 mg Tab 00 every Medical morning. Branch escitalopra Yes [id number] 20mg Take 1 [facility] m oxalate 6-06 tablet by ity o f (LEXAPRO) 00:00: mouth [place] 20 mg 00 daily. Medical tablet Branch glyBURIDE 5 Yes [id number] TAKE 1 [facility] mg tablet 6-06 TABLET BY ity o f 00:00: MOUTH [place] 00 TWICE Medical DAILY WITH Branch MEALS (NEEDS FOLLOW UP VISIT FOR FURTHER REFILLS) NUVARING Yes [id number] 1{each} Insert 1 [facility] (NUVARING) 6-06 Each into ity of 0.12-0.015 00:00: vagina [place] mg/24 hr 00 once every Medic al vaginal month. Branch insert Insert vaginally and leave in place for 3 consecutiv e weeks, then remove for 1 week. atorvastati Yes [id number] 20mg Take 1 [facility] n 20 mg 6-06 tablet by [facility] of tablet 00:00: mouth at [place] 00 bedtime. Medical Branch empaglifloz Yes [id number] 25mg Take 1 [facility] in 6-06 tablet by [facility] of ([place]) 00:00: mouth [place] 25 mg Tab 00 every Medical morning. Branch escitalopra Yes [id number] 20mg Take 1 [facility] m oxalate 6-06 tablet by ity o f (LEXAPRO) 00:00: mouth [place] 20 mg 00 daily. Medical tablet Branch glyBURIDE 5 Yes [id number] TAKE 1 [facility] mg tablet 6-06 TABLET BY ity o f 00:00: MOUTH [place] 00 TWICE Medical DAILY WITH Branch MEALS (NEEDS FOLLOW UP VISIT FOR FURTHER REFILLS) NUVARING 2021-0 Yes [id number] 1{each} Insert 1 [facility] (NUVARING) 6-06 Each into ity of 0.12-0.015 00:00: vagina [place] mg/24 hr 00 once every Medic al vaginal month. Branch insert Insert vaginally and leave in place for 3 consecutiv e weeks, then remove for 1 week. atorvastati 2022-0 Yes [id number] 20mg Take 1 [facility] n 20 mg 6-06 tablet by [facility] of tablet 00:00: mouth at [place] 00 bedtime. Medical Branch empaglifloz Yes [id number] 25mg Take 1 [facility] in 6-06 tablet by [facility] of ([place]) 00:00: mouth [place] 25 mg Tab 00 every Medical morning. Branch escitalopra Yes [id number] 20mg Take 1 [facility] m oxalate 6-06 tablet by ity o f (LEXAPRO) 00:00: mouth [place] 20 mg 00 daily. Medical tablet Branch glyBURIDE 5 Yes [id number] TAKE 1 [facility] mg tablet 6-06 TABLET BY ity o f 00:00: MOUTH [place] 00 TWICE Medical DAILY WITH Branch MEALS (NEEDS FOLLOW UP VISIT FOR FURTHER REFILLS) NUVARING Yes [id number] 1{each} Insert 1 [facility] (NUVARING) 6-06 Each into ity of 0.12-0.015 00:00: vagina [place] mg/24 hr 00 once every Medic al vaginal month. Branch insert Insert vaginally and leave in place for 3 consecutiv e weeks, then remove for 1 week. atorvastati Yes [id number] 20mg Take 1 [facility] n 20 mg 6-06 tablet by [facility] of tablet 00:00: mouth at [place] 00 bedtime. Medical Branch empaglifloz Yes [id number] 25mg Take 1 [facility] in 6-06 tablet by [facility]y of ([place]) 00:00: mouth [place] 25 mg Tab 00 every Medical morning. Branch escitalopra Yes [id number] 20mg Take 1 [facility] m oxalate 6-06 tablet by ity o f (LEXAPRO) 00:00: mouth [place] 20 mg 00 daily. Medical tablet Branch glyBURIDE 5 Yes [id number] TAKE 1 [facility] mg tablet 6-06 TABLET BY ity o f 00:00: MOUTH [place] 00 TWICE Medical DAILY WITH Branch MEALS (NEEDS FOLLOW UP VISIT FOR FURTHER REFILLS) NUVARING Yes [id number] 1{each} Insert 1 [facility] (NUVARING) 6-06 Each into ity of 0.12-0.015 00:00: vagina [place] mg/24 hr 00 once every Medic al vaginal month. Branch insert Insert vaginally and leave in place for 3 consecutiv e weeks, then remove for 1 week. atorvastati Yes [id number] 20mg Take 1 [facility] n 20 mg 6-06 tablet by ity of tablet 00:00: mouth at [place] 00 bedtime. Medical Branch empaglifloz Yes [id number] 25mg Take 1 [facility] in 6-06 tablet by ity of ([place]) 00:00: mouth [place] 25 mg Tab 00 every Medical morning. Branch escitalopra Yes [id number] 20mg Take 1 [facility] m oxalate 6-06 tablet by ity o f (LEXAPRO) 00:00: mouth [place] 20 mg 00 daily. Medical tablet Branch glyBURIDE 5 Yes [id number] TAKE 1 [facility] mg tablet 6-06 TABLET BY ity o f 00:00: MOUTH [place] 00 TWICE Medical DAILY WITH Branch MEALS (NEEDS FOLLOW UP VISIT FOR FURTHER REFILLS) NUVARING Yes [id number] 1{each} Insert 1 [facility] (NUVARING) 6-06 Each into ity of 0.12-0.015 00:00: vagina [place] mg/24 hr 00 once every Medic al vaginal month. Branch insert Insert vaginally and leave in place for 3 consecutiv e weeks, then remove for 1 week. atorvastati Yes [id number] 20mg Take 1 [facility] n 20 mg 6-06 tablet by ity of tablet 00:00: mouth at [place] 00 bedtime. Medical Branch empaglifloz Yes [id number] 25mg Take 1 [facility] in 6-06 tablet by ity of ([place]) 00:00: mouth [place] 25 mg Tab 00 every Medical morning. Branch escitalopra Yes [id number] 20mg Take 1 [facility] m oxalate 6-06 tablet by ity o f (LEXAPRO) 00:00: mouth [place] 20 mg 00 daily. Medical tablet Branch glyBURIDE 5 Yes [id number] TAKE 1 [facility] mg tablet 6-06 TABLET BY ity o f 00:00: MOUTH [place] 00 TWICE Medical DAILY WITH Branch MEALS (NEEDS FOLLOW UP VISIT FOR FURTHER REFILLS) NUVARING Yes [id number] 1{each} Insert 1 [facility] (NUVARING) 6-06 Each into ity of 0.12-0.015 00:00: vagina [place] mg/24 hr 00 once every Medic al vaginal month. Branch insert Insert vaginally and leave in place for 3 consecutiv e weeks, then remove for 1 week. atorvastati Yes [id number] 20mg Take 1 [facility] n 20 mg 6-06 tablet by ity of tablet 00:00: mouth at [place] 00 bedtime. Medical Branch empaglifloz Yes [id number] 25mg Take 1 [facility] in 6-06 tablet by ity of ([place]) 00:00: mouth [place] 25 mg Tab 00 every Medical morning. Branch escitalopra Yes [id number] 20mg Take 1 [facility] m oxalate 6-06 tablet by ity o f (LEXAPRO) 00:00: mouth [place] 20 mg 00 daily. Medical tablet Branch glyBURIDE 5 Yes [id number] TAKE 1 [facility] mg tablet 6-06 TABLET BY ity o f 00:00: MOUTH [place] 00 TWICE Medical DAILY WITH Branch MEALS (NEEDS FOLLOW UP VISIT FOR FURTHER REFILLS) NUVARING 0 Yes [id number] 1{each} Insert 1 [facility] (NUVARING) 6-06 Each into ity of 0.12-0.015 00:00: vagina [place] mg/24 hr 00 once every Medic al vaginal month. Branch insert Insert vaginally and leave in place for 3 consecutiv e weeks, then remove for 1 week. atorvastati Yes [id number] 20mg Take 1 [facility] n 20 mg 6-06 tablet by ity of tablet 00:00: mouth at [place] 00 bedtime. Medical Branch empaglifloz Yes [id number] 25mg Take 1 [facility] in 6-06 tablet by ity of ([place]) 00:00: mouth [place] 25 mg Tab 00 every Medical morning. Branch escitalopra 2021-0 Yes [id number] 20mg Take 1 [facility] m oxalate 6-06 tablet by ity o f (LEXAPRO) 00:00: mouth [place] 20 mg 00 daily. Medical tablet Branch glyBURIDE 5 2021-0 Yes [id number] TAKE 1 [facility] mg tablet 6-06 TABLET BY ity o f 00:00: MOUTH [place] 00 TWICE Medical DAILY WITH Branch MEALS (NEEDS FOLLOW UP VISIT FOR FURTHER REFILLS) NUVARING Yes [id number] 1{each} Insert 1 [facility] (NUVARING) 6-06 Each into ity of 0.12-0.015 00:00: vagina [place] mg/24 hr 00 once every Medic al vaginal month. Branch insert Insert vaginally and leave in place for 3 consecutiv e weeks, then remove for 1 week. atorvastati Yes [id number] 20mg Take 1 [facility] n 20 mg 6-06 tablet by ity of tablet 00:00: mouth at [place] 00 bedtime. Medical Branch empaglifloz Yes [id number] 25mg Take 1 [facility] in 6-06 tablet by ity of ([place]) 00:00: mouth [place] 25 mg Tab 00 every Medical morning. Branch escitalopra Yes [id number] 20mg Take 1 [facility] m oxalate 6-06 tablet by ity o f (LEXAPRO) 00:00: mouth [place] 20 mg 00 daily. Medical tablet Branch glyBURIDE 5 Yes [id number] TAKE 1 [facility] mg tablet 6-06 TABLET BY ity o f 00:00: MOUTH [place] 00 TWICE Medical DAILY WITH Branch MEALS (NEEDS FOLLOW UP VISIT FOR FURTHER REFILLS) NUVARING Yes [id number] 1{each} Insert 1 [facility] (NUVARING) 6-06 Each into ity of 0.12-0.015 00:00: vagina [place] mg/24 hr 00 once every Medic al vaginal month. Branch insert Insert vaginally and leave in place for 3 consecutiv e weeks, then remove for 1 week. atorvastati Yes [id number] 20mg Take 1 [facility] n 20 mg 6-06 tablet by ity of tablet 00:00: mouth at [place] 00 bedtime. Medical Branch empaglifloz Yes [id number] 25mg Take 1 [facility] in 6-06 tablet by [facility]y of ([place]) 00:00: mouth [place] 25 mg Tab 00 every Medical morning. Branch escitalopra Yes [id number] 20mg Take 1 [facility] m oxalate 6-06 tablet by ity o f (LEXAPRO) 00:00: mouth [place] 20 mg 00 daily. Medical tablet Branch glyBURIDE 5 2022-0 Yes [id number] TAKE 1 [facility] mg tablet 6-06 TABLET BY ity o f 00:00: MOUTH [place] 00 TWICE Medical DAILY WITH Branch MEALS (NEEDS FOLLOW UP VISIT FOR FURTHER REFILLS) NUVARING Yes [id number] 1{each} Insert 1 [facility] (NUVARING) 6-06 Each into ity of 0.12-0.015 00:00: vagina [place] mg/24 hr 00 once every Medic al vaginal month. Branch insert Insert vaginally and leave in place for 3 consecutiv e weeks, then remove for 1 week. atorvastati Yes [id number] 20mg Take 1 [facility] n 20 mg 6-06 tablet by ity of tablet 00:00: mouth at [place] 00 bedtime. Medical Branch empaglifloz Yes [id number] 25mg Take 1 [facility] in 6-06 tablet by ity of ([place]) 00:00: mouth [place] 25 mg Tab 00 every Medical morning. Branch escitalopra Yes [id number] 20mg Take 1 [facility] m oxalate 6-06 tablet by ity o f (LEXAPRO) 00:00: mouth [place] 20 mg 00 daily. Medical tablet Branch glyBURIDE 5 0 Yes [id number] TAKE 1 [facility] mg tablet 6-06 TABLET BY ity o f 00:00: MOUTH [place] 00 TWICE Medical DAILY WITH Branch MEALS (NEEDS FOLLOW UP VISIT FOR FURTHER REFILLS) NUVARING Yes [id number] 1{each} Insert 1 [facility] (NUVARING) 6-06 Each into ity of 0.12-0.015 00:00: vagina [place] mg/24 hr 00 once every Medic al vaginal month. Branch insert Insert vaginally and leave in place for 3 consecutiv e weeks, then remove for 1 week. atorvastati 0 Yes [id number] 20mg Take 1 [facility] n 20 mg 6-06 tablet by ity of tablet 00:00: mouth at [place] 00 bedtime. Medical Branch empaglifloz 2021-0 Yes [id number] 25mg Take 1 [facility] in 6-06 tablet by ity of ([place]) 00:00: mouth [place] 25 mg Tab 00 every Medical morning. Branch escitalopra 2021-0 Yes [id number] 20mg Take 1 [facility] m oxalate 6-06 tablet by ity o f (LEXAPRO) 00:00: mouth [place] 20 mg 00 daily. Medical tablet Branch glyBURIDE 5 Yes [id number] TAKE 1 [facility] mg tablet 6-06 TABLET BY ity o f 00:00: MOUTH [place] 00 TWICE Medical DAILY WITH Branch MEALS (NEEDS FOLLOW UP VISIT FOR FURTHER REFILLS) NUVARING 2021- Yes [id number] 1{each} Insert 1 [facility] (NUVARING) 6-06 Each into ity of 0.12-0.015 00:00: vagina [place] mg/24 hr 00 once every Medic al vaginal month. Branch insert Insert vaginally and leave in place for 3 consecutiv e weeks, then remove for 1 week. atorvastati Yes [id number] 20mg Take 1 [facility] n 20 mg 6-06 tablet by ity of tablet 00:00: mouth at [place] 00 bedtime. Medical Branch empaglifloz Yes [id number] 25mg Take 1 [facility] in 6-06 tablet by ity of ([place]) 00:00: mouth [place] 25 mg Tab 00 every Medical morning. Branch escitalopra Yes [id number] 20mg Take 1 [facility] m oxalate 6-06 tablet by ity o f (LEXAPRO) 00:00: mouth [place] 20 mg 00 daily. Medical tablet Branch glyBURIDE 5 Yes [id number] TAKE 1 [facility] mg tablet 6-06 TABLET BY ity o f 00:00: MOUTH [place] 00 TWICE Medical DAILY WITH Branch MEALS (NEEDS FOLLOW UP VISIT FOR FURTHER REFILLS) NUVARING 2021- Yes [id number] 1{each} Insert 1 [facility] (NUVARING) 6-06 Each into ity of 0.12-0.015 00:00: vagina [place] mg/24 hr 00 once every Medic al vaginal month. Branch insert Insert vaginally and leave in place for 3 consecutiv e weeks, then remove for 1 week. atorvastati Yes [id number] 20mg Take 1 [facility] n 20 mg 6-06 tablet by ity of tablet 00:00: mouth at [place] 00 bedtime. Medical Branch empaglifloz Yes [id number] 25mg Take 1 [facility] in 6-06 tablet by ity of ([place]) 00:00: mouth [place] 25 mg Tab 00 every Medical morning. Branch escitalopra Yes [id number] 20mg Take 1 [facility] m oxalate 6-06 tablet by ity o f (LEXAPRO) 00:00: mouth [place] 20 mg 00 daily. Medical tablet Branch glyBURIDE 5 Yes [id number] TAKE 1 [facility] mg tablet 6-06 TABLET BY ity o f 00:00: MOUTH [place] 00 TWICE Medical DAILY WITH Branch MEALS (NEEDS FOLLOW UP VISIT FOR FURTHER REFILLS) NUVARING Yes [id number] 1{each} Insert 1 [facility] (NUVARING) 6-06 Each into ity of 0.12-0.015 00:00: vagina [place] mg/24 hr 00 once every Medic al vaginal month. Branch insert Insert vaginally and leave in place for 3 consecutiv e weeks, then remove for 1 week. atorvastati Yes [id number] 20mg Take 1 [facility] n 20 mg 6-06 tablet by ity of tablet 00:00: mouth at [place] 00 bedtime. Medical Branch empaglifloz Yes [id number] 25mg Take 1 [facility] in 6-06 tablet by ity of ([place]) 00:00: mouth [place] 25 mg Tab 00 every Medical morning. Branch escitalopra Yes [id number] 20mg Take 1 [facility] m oxalate 6-06 tablet by ity o f (LEXAPRO) 00:00: mouth [place] 20 mg 00 daily. Medical tablet Branch glyBURIDE 5 Yes [id number] TAKE 1 [facility] mg tablet 6-06 TABLET BY ity o f 00:00: MOUTH [place] 00 TWICE Medical DAILY WITH Branch MEALS (NEEDS FOLLOW UP VISIT FOR FURTHER REFILLS) NUVARING Yes [id number] 1{each} Insert 1 [facility] (NUVARING) 6-06 Each into ity of 0.12-0.015 00:00: vagina [place] mg/24 hr 00 once every Medic al vaginal month. Branch insert Insert vaginally and leave in place for 3 consecutiv e weeks, then remove for 1 week. atorvastati Yes [id number] 20mg Take 1 [facility] n 20 mg 6-06 tablet by ity of tablet 00:00: mouth at [place] 00 bedtime. Medical Branch empaglifloz Yes [id number] 25mg Take 1 [facility] in 6-06 tablet by [facility]y of ([place]) 00:00: mouth [place] 25 mg Tab 00 every Medical morning. Branch escitalopra Yes [id number] 20mg Take 1 [facility] m oxalate 6-06 tablet by ity o f (LEXAPRO) 00:00: mouth [place] 20 mg 00 daily. Medical tablet Branch glyBURIDE 5 Yes [id number] TAKE 1 [facility] mg tablet 6-06 TABLET BY ity o f 00:00: MOUTH [place] 00 TWICE Medical DAILY WITH Branch MEALS (NEEDS FOLLOW UP VISIT FOR FURTHER REFILLS) NUVARING Yes [id number] 1{each} Insert 1 [facility] (NUVARING) 6-06 Each into ity of 0.12-0.015 00:00: vagina [place] mg/24 hr 00 once every Medic al vaginal month. Branch insert Insert vaginally and leave in place for 3 consecutiv e weeks, then remove for 1 week. atorvastati Yes [id number] 20mg Take 1 [facility] 20 [facility] 6-06 tablet by [facility] tablet 00:00: mouth at [place] 00 bedtime. [facility] empaglifloz Yes [id number] 25mg Take 1 [facility] in 6-06 tablet by [facility] ([facility]) 00:00: mouth [place] 25 mg Tab 00 every Medical morning. Branch escitalopra Yes [id number] 20mg Take 1 [facility] m oxalate 6-06 tablet by [facility] o f (LEXAPRO) 00:00: mouth [place] 20 mg 00 daily. Medical tablet Branch glyBURIDE 5 Yes [id number] TAKE 1 [facility] mg tablet 6-06 TABLET BY ity o f 00:00: MOUTH [place] 00 TWICE Medical DAILY WITH Branch MEALS (NEEDS FOLLOW UP VISIT FOR FURTHER REFILLS) NUVARING 2021- Yes [id number] 1{each} Insert 1 [facility] (NUVARING) 6-06 Each into ity of 0.12-0.015 00:00: vagina [place] mg/24 hr 00 once every Medic al vaginal month. Branch insert Insert vaginally and leave in place for 3 consecutiv e weeks, then remove for 1 week. atorvastati Yes [id number] 20mg Take 1 [facility] n 20 mg 6-06 tablet by [facility] of tablet 00:00: mouth at [place] 00 bedtime. [facility] empaglifloz Yes [id number] 25mg Take 1 [facility] in 6-06 tablet by [facility] ([facility]) 00:00: mouth [place] 25 mg Tab 00 every Medical morning. Branch escitalopra Yes [id number] 20mg Take 1 [facility] m oxalate 6-06 tablet by [facility] o f (LEXAPRO) 00:00: mouth [place] 20 mg 00 daily. Medical tablet Branch glyBURIDE 5 Yes [id number] TAKE 1 [facility] mg tablet 6-06 TABLET BY it[facility] o f 00:00: MOUTH [place] 00 TWICE Medical DAILY WITH Branch MEALS (NEEDS FOLLOW UP VISIT FOR FURTHER REFILLS) NUVARING Yes [id number] 1{each} Insert 1 [facility] (NUVARING) 6-06 Each into ity of 0.12-0.015 00:00: vagina [place] mg/24 hr 00 once every Medic al vaginal month. Branch insert Insert vaginally and leave in place for 3 consecutiv e weeks, then remove for 1 week. atorvastati Yes [id number] 20mg Take 1 [facility] n 20 mg 6-06 tablet by [facility] of tablet 00:00: mouth at [place] 00 bedtime. [facility] empaglifloz Yes [id number] 25mg Take 1 [facility] in 6-06 tablet by [facility] of ([facility]) 00:00: mouth [place] 25 mg Tab 00 every Medical morning. Branch escitalopra Yes [id number] 20mg Take 1 [facility] m oxalate 6-06 tablet by [facility] o f (LEXAPRO) 00:00: mouth [place] 20 mg 00 daily. Medical tablet Branch glyBURIDE 5 Yes [id number] TAKE 1 [facility] mg tablet 6-06 TABLET BY it[facility] o f 00:00: MOUTH [place] 00 TWICE Medical DAILY WITH Branch MEALS (NEEDS FOLLOW UP VISIT FOR FURTHER REFILLS) NUVARING 2021-0 Yes [id number] 1{each} Insert 1 [facility] (NUVARING) 6-06 Each into ity of 0.12-0.015 00:00: vagina [place] mg/24 hr 00 once every Medic al vaginal month. Branch insert Insert vaginally and leave in place for 3 consecutiv e weeks, then remove for 1 week. atorvastati Yes [id number] 20mg Take 1 [facility] n 20 mg 6-06 tablet by [facility] of tablet 00:00: mouth at [place] 00 bedtime. [facility] empaglifloz Yes [id number] 25mg Take 1 [facility] in 6-06 tablet by [facility] of ([facility]) 00:00: mouth [place] 25 mg Tab 00 every Medical morning. Branch escitalopra Yes [id number] 20mg Take 1 [facility] m oxalate 6-06 tablet by [facility] o f (LEXAPRO) 00:00: mouth [place] 20 mg 00 daily. Medical tablet Branch glyBURIDE 5 Yes [id number] TAKE 1 [facility] mg tablet 6-06 TABLET BY it[facility] o f 00:00: MOUTH [place] 00 TWICE Medical DAILY WITH Branch MEALS (NEEDS FOLLOW UP VISIT FOR FURTHER REFILLS) NUVARING Yes [id number] 1{each} Insert 1 [facility] (NUVARING) 6-06 Each into ity of 0.12-0.015 00:00: vagina [place] mg/24 hr 00 once every Medic al vaginal month. Branch insert Insert vaginally and leave in place for 3 consecutiv e weeks, then remove for 1 week. atorvastati Yes [id number] 20mg Take 1 [facility] n 20 mg 6-06 tablet by [facility] of tablet 00:00: mouth at [place] 00 bedtime. Medical [facility] empaglifloz Yes [id number] 25mg Take 1 [facility] in 6-06 tablet by [facility] of ([facility]) 00:00: mouth [place] 25 mg Tab 00 every Medical morning. Branch escitalopra Yes [id number] 20mg Take 1 [facility] m oxalate 6-06 tablet by it[facility] o f (LEXAPRO) 00:00: mouth [place] 20 mg 00 daily. Medical tablet Branch glyBURIDE 5 Yes [id number] TAKE 1 [facility] mg tablet 6-06 TABLET BY it[facility] o f 00:00: MOUTH [place] 00 TWICE Medical DAILY WITH Branch MEALS (NEEDS FOLLOW UP VISIT FOR FURTHER REFILLS) atorvastati Yes [id number] 20mg Take 1 [facility] n 20 mg 6-06 tablet by [facility] of tablet 00:00: mouth at [place] 00 bedtime. Medical [facility] empaglifloz 0 Yes [id number] 25mg Take 1 [facility] in 6-06 tablet by [facility] of ([facility]) 00:00: mouth [place] 25 mg Tab 00 every Medical morning. Branch escitalopra Yes [id number] 20mg Take 1 [facility] m oxalate 6-06 tablet by it[facility] o f (LEXAPRO) 00:00: mouth [place] 20 mg 00 daily. Medical tablet Branch glyBURIDE 5 Yes [id number] TAKE 1 [facility] mg tablet 6-06 TABLET BY it[facility] o f 00:00: MOUTH [place] 00 TWICE Medical DAILY WITH Branch MEALS (NEEDS FOLLOW UP VISIT FOR FURTHER REFILLS) atorvastati 0 Yes [id number] 20mg Take 1 [facility] n 20 mg 6-06 tablet by [facility] of tablet 00:00: mouth at [place] 00 bedtime. Medical [facility] empaglifloz Yes [id number] 25mg Take 1 [facility] in 6-06 tablet by [facility] of ([place]) 00:00: mouth [place] 25 mg Tab 00 every Medical morning. Branch escitalopra Yes [id number] 20mg Take 1 [facility] m oxalate 6-06 tablet by it[facility] o f (LEXAPRO) 00:00: mouth [place] 20 mg 00 daily. Medical tablet Branch glyBURIDE 5 Yes [id number] TAKE 1 [facility] mg tablet 6-06 TABLET BY it[facility] o f 00:00: MOUTH [place] 00 TWICE Medical DAILY WITH Branch MEALS (NEEDS FOLLOW UP VISIT FOR FURTHER REFILLS) atorvastati 2021-0 Yes [id number] 20mg Take 1 [facility] n 20 mg 6-06 tablet by [facility] of tablet 00:00: mouth at [place] 00 bedtime. Medical [facility] empaglifloz Yes [id number] 25mg Take 1 [facility] in 6-06 tablet by [facility] of ([place]) 00:00: mouth [place] 25 mg Tab 00 every Medical morning. Branch escitalopra 0 Yes [id number] 20mg Take 1 [facility] m oxalate 6-06 tablet by [facility] o f (LEXAPRO) 00:00: mouth [place] 20 mg 00 daily. Medical tablet Branch glyBURIDE 5 2021-0 Yes [id number] TAKE 1 [facility] mg tablet 6-06 TABLET BY it[facility] o f 00:00: MOUTH [place] 00 TWICE Medical DAILY WITH Branch MEALS (NEEDS FOLLOW UP VISIT FOR FURTHER REFILLS) atorvastati 2021-0 Yes [id number] 20mg Take 1 [facility] n 20 mg 6-06 tablet by [facility] of tablet 00:00: mouth at [place] 00 bedtime. Medical [facility] empaglifloz 0 Yes [id number] 25mg Take 1 [facility] in 6-06 tablet by [facility] of ([place]) 00:00: mouth [place] 25 mg Tab 00 every Medical morning. Branch escitalopra Yes [id number] 20mg Take 1 [facility] m oxalate 6-06 tablet by it[facility] o f (LEXAPRO) 00:00: mouth [place] 20 mg 00 daily. Medical tablet Branch glyBURIDE 5 Yes [id number] TAKE 1 [facility] mg tablet 6-06 TABLET BY ity o f 00:00: MOUTH [place] 00 TWICE Medical DAILY WITH Branch MEALS (NEEDS FOLLOW UP VISIT FOR FURTHER REFILLS) atorvastati 2021-0 Yes [id number] 20mg Take 1 [facility] n 20 mg 6-06 tablet by [facility] of tablet 00:00: mouth at [place] 00 bedtime. [facility] empaglifloz Yes [id number] 25mg Take 1 [facility] in 6-06 tablet by [facility] of ([place]) 00:00: mouth [place] 25 mg Tab 00 every Medical morning. Branch escitalopra Yes [id number] 20mg Take 1 [facility] m oxalate 6-06 tablet by it[facility] o f (LEXAPRO) 00:00: mouth [place] 20 mg 00 daily. Medical tablet Branch glyBURIDE 5 Yes [id number] TAKE 1 [facility] mg tablet 6-06 TABLET BY it[facility] o f 00:00: MOUTH [place] 00 TWICE Medical DAILY WITH Branch MEALS (NEEDS FOLLOW UP VISIT FOR FURTHER REFILLS) atorvastati 2021-0 Yes [id number] 20mg Take 1 [facility] n 20 mg 6-06 tablet by [facility] of tablet 00:00: mouth at [place] 00 bedtime. [facility] empaglifloz 0 Yes [id number] 25mg Take 1 [facility] in 6-06 tablet by [facility] of ([place]) 00:00: mouth [place] 25 mg Tab 00 every Medical morning. Branch escitalopra 2021-0 Yes [id number] 20mg Take 1 [facility] m oxalate 6-06 tablet by it[facility] o f (LEXAPRO) 00:00: mouth [place] 20 mg 00 daily. Medical tablet Branch glyBURIDE 5 Yes [id number] TAKE 1 [facility] mg tablet 6-06 TABLET BY it[facility] o f 00:00: MOUTH [place] 00 TWICE Medical DAILY WITH Branch MEALS (NEEDS FOLLOW UP VISIT FOR FURTHER REFILLS) atorvastati Yes [id number] 20mg Take 1 [facility] n 20 mg 6-06 tablet by [facility] of tablet 00:00: mouth at [place] 00 bedtime. [facility] empaglifloz Yes [id number] 25mg Take 1 [facility] in 6-06 tablet by [facility] of ([facility]) 00:00: mouth [place] 25 mg Tab 00 every Medical morning. Branch escitalopra Yes [id number] 20mg Take 1 [facility] m oxalate 6-06 tablet by it[facility] o f (LEXAPRO) 00:00: mouth [place] 20 mg 00 daily. Medical tablet Branch glyBURIDE 5 Yes [id number] TAKE 1 [facility] mg tablet 6-06 TABLET BY it[facility] o f 00:00: MOUTH [place] 00 TWICE Medical DAILY WITH Branch MEALS (NEEDS FOLLOW UP VISIT FOR FURTHER REFILLS) atorvastati 2021-0 Yes [id number] 20mg Take 1 [facility] n 20 mg 6-06 tablet by [facility] of tablet 00:00: mouth at [place] 00 bedtime. [facility] Branch empaglifloz Yes [id number] 25mg Take 1 [facility] in 6-06 tablet by [facility] of ([place]) 00:00: mouth [place] 25 mg Tab 00 every Medical morning. Branch escitalopra Yes [id number] 20mg Take 1 [facility] m oxalate 6-06 tablet by it[facility] o f (LEXAPRO) 00:00: mouth [place] 20 mg 00 daily. Medical tablet Branch glyBURIDE 5 0 Yes [id number] TAKE 1 [facility] mg tablet 6-06 TABLET BY ity o f 00:00: MOUTH [place] 00 TWICE Medical DAILY WITH Branch MEALS (NEEDS FOLLOW UP VISIT FOR FURTHER REFILLS) atorvastati 2021-0 Yes [id number] 20mg Take 1 [facility] n 20 mg 6-06 tablet by [facility] of tablet 00:00: mouth at [place] 00 bedtime. [facility] Branch empaglifloz Yes [id number] 25mg Take 1 [facility] in 6-06 tablet by [facility] of ([facility]) 00:00: mouth [place] 25 mg Tab 00 every Medical morning. Branch escitalopra Yes [id number] 20mg Take 1 [facility] m oxalate 6-06 tablet by ity o f (LEXAPRO) 00:00: mouth [place] 20 mg 00 daily. Medical tablet Branch glyBURIDE 5 Yes [id number] TAKE 1 [facility] mg tablet 6-06 TABLET BY ity o f 00:00: MOUTH [place] 00 TWICE Medical DAILY WITH Branch MEALS (NEEDS FOLLOW UP VISIT FOR FURTHER REFILLS) atorvastati Yes [id number] 20mg Take 1 [facility] n 20 mg 6-06 tablet by [facility] of tablet 00:00: mouth at [place] 00 bedtime. Medical Branch empaglifloz Yes [id number] 25mg Take 1 [facility] in 6-06 tablet by [facility] of ([place]) 00:00: mouth [place] 25 mg Tab 00 every Medical morning. Branch escitalopra Yes [id number] 20mg Take 1 [facility] m oxalate 6-06 tablet by ity o f (LEXAPRO) 00:00: mouth [place] 20 mg 00 daily. Medical tablet Branch glyBURIDE 5 Yes [id number] TAKE 1 [facility] mg tablet 6-06 TABLET BY ity o f 00:00: MOUTH [place] 00 TWICE Medical DAILY WITH Branch MEALS (NEEDS FOLLOW UP VISIT FOR FURTHER REFILLS) atorvastati Yes [id number] 20mg Take 1 [facility] n 20 mg 6-06 tablet by [facility] of tablet 00:00: mouth at [place] 00 bedtime. Medical Branch empaglifloz Yes [id number] 25mg Take 1 [facility] in 6-06 tablet by [facility] of ([place]) 00:00: mouth [place] 25 mg Tab 00 every Medical morning. Branch escitalopra Yes [id number] 20mg Take 1 [facility] m oxalate 6-06 tablet by ity o f (LEXAPRO) 00:00: mouth [place] 20 mg 00 daily. Medical tablet Branch glyBURIDE 5 Yes [id number] TAKE 1 [facility] mg tablet 6-06 TABLET BY ity o f 00:00: MOUTH [place] 00 TWICE Medical DAILY WITH Branch MEALS (NEEDS FOLLOW UP VISIT FOR FURTHER REFILLS) atorvastati 0 Yes [id number] 20mg Take 1 [facility] n 20 mg 6-06 tablet by [facility] of tablet 00:00: mouth at [place] 00 bedtime. Medical Branch empaglifloz Yes [id number] 25mg Take 1 [facility] in 6-06 tablet by [facility] of ([place]) 00:00: mouth [place] 25 mg Tab 00 every Medical morning. Branch escitalopra Yes [id number] 20mg Take 1 [facility] m oxalate 6-06 tablet by ity o f (LEXAPRO) 00:00: mouth [place] 20 mg 00 daily. Medical tablet Branch glyBURIDE 5 Yes [id number] TAKE 1 [facility] mg tablet 6-06 TABLET BY ity o f 00:00: MOUTH [place] 00 TWICE Medical DAILY WITH Branch MEALS (NEEDS FOLLOW UP VISIT FOR FURTHER REFILLS) atorvastati Yes [id number] 20mg Take 1 [facility] n 20 mg 6-06 tablet by [facility] of tablet 00:00: mouth at [place] 00 bedtime. [facility] Branch empaglifloz Yes [id number] 25mg Take 1 [facility] in 6-06 tablet by [facility] of ([place]) 00:00: mouth [place] 25 mg Tab 00 every Medical morning. Branch escitalopra Yes [id number] 20mg Take 1 [facility] m oxalate 6-06 tablet by ity o f (LEXAPRO) 00:00: mouth [place] 20 mg 00 daily. Medical tablet Branch glyBURIDE 5 Yes [id number] TAKE 1 [facility] mg tablet 6-06 TABLET BY ity o f 00:00: MOUTH [place] 00 TWICE Medical DAILY WITH Branch MEALS (NEEDS FOLLOW UP VISIT FOR FURTHER REFILLS) atorvastati Yes [id number] 20mg Take 1 [facility] n 20 mg 6-06 tablet by [facility] of tablet 00:00: mouth at [place] 00 bedtime. Medical Branch empaglifloz Yes [id number] 25mg Take 1 [facility] in 6-06 tablet by [facility] of ([place]) 00:00: mouth [place] 25 mg Tab 00 every Medical morning. Branch escitalopra Yes [id number] 20mg Take 1 [facility] m oxalate 6-06 tablet by ity o f (LEXAPRO) 00:00: mouth [place] 20 mg 00 daily. Medical tablet Branch glyBURIDE 5 Yes [id number] TAKE 1 [facility] mg tablet 6-06 TABLET BY ity o f 00:00: MOUTH [place] 00 TWICE Medical DAILY WITH Branch MEALS (NEEDS FOLLOW UP VISIT FOR FURTHER REFILLS) atorvastati Yes [id number] 20mg Take 1 [facility] n 20 mg 6-06 tablet by [facility] of tablet 00:00: mouth at [place] 00 bedtime. Medical Branch empaglifloz Yes [id number] 25mg Take 1 [facility] in 6-06 tablet by [facility] of ([place]) 00:00: mouth [place] 25 mg Tab 00 every Medical morning. Branch escitalopra Yes [id number] 20mg Take 1 [facility] m oxalate 6-06 tablet by it[facility] o f (LEXAPRO) 00:00: mouth [place] 20 mg 00 daily. Medical tablet Branch glyBURIDE 5 Yes [id number] TAKE 1 [facility] mg tablet 6-06 TABLET BY [facility] o f 00:00: MOUTH [place] 00 TWICE Medical DAILY WITH Branch MEALS (NEEDS FOLLOW UP VISIT FOR FURTHER REFILLS) atorvastati Yes [id number] 20mg Take 1 [facility] n 20 mg 6-06 tablet by [facility] of tablet 00:00: mouth at [place] 00 bedtime. Medical Branch empaglifloz Yes [id number] 25mg Take 1 [facility] in 6-06 tablet by [facility] of ([place]) 00:00: mouth [place] 25 mg Tab 00 every Medical morning. Branch escitalopra Yes [id number] 20mg Take 1 [facility] m oxalate 6-06 tablet by ity o f (LEXAPRO) 00:00: mouth [place] 20 mg 00 daily. Medical tablet Branch glyBURIDE 5 Yes [id number] TAKE 1 [facility] mg tablet 6-06 TABLET BY ity o f 00:00: MOUTH [place] 00 TWICE Medical DAILY WITH Branch MEALS (NEEDS FOLLOW UP VISIT FOR FURTHER REFILLS) atorvastati 2021- Yes [id number] 20mg Take 1 [facility] n 20 mg 6-06 tablet by [facility] of tablet 00:00: mouth at [place] 00 bedtime. Medical Branch empaglifloz Yes [id number] 25mg Take 1 [facility] in 6-06 tablet by [facility] of ([place]) 00:00: mouth [place] 25 mg Tab 00 every Medical morning. Branch escitalopra Yes [id number] 20mg Take 1 [facility] m oxalate 6-06 tablet by ity o f (LEXAPRO) 00:00: mouth [place] 20 mg 00 daily. Medical tablet Branch glyBURIDE 5 Yes [id number] TAKE 1 [facility] mg tablet 6-06 TABLET BY ity o f 00:00: MOUTH [place] 00 TWICE Medical DAILY WITH Branch MEALS (NEEDS FOLLOW UP VISIT FOR FURTHER REFILLS) atorvastati Yes [id number] 20mg Take 1 [facility] n 20 mg 6-06 tablet by [facility] of tablet 00:00: mouth at [place] 00 bedtime. Medical Branch escitalopra Yes [id number] 20mg Take 1 [facility] m oxalate 6-06 tablet by ity o f (LEXAPRO) 00:00: mouth [place] 20 mg 00 daily. Medical tablet Branch glyBURIDE 5 Yes [id number] TAKE 1 [facility] mg tablet 6-06 TABLET BY ity o f 00:00: MOUTH [place] 00 TWICE Medical DAILY WITH Branch MEALS (NEEDS FOLLOW UP VISIT FOR FURTHER REFILLS) atorvastati Yes [id number] 20mg Take 1 [facility] n 20 mg 6-06 tablet by [facility] of tablet 00:00: mouth at [place] 00 bedtime. Medical Branch escitalopra Yes [id number] 20mg Take 1 [facility] m oxalate 6-06 tablet by ity o f (LEXAPRO) 00:00: mouth [place] 20 mg 00 daily. Medical tablet Branch glyBURIDE 5 Yes [id number] TAKE 1 [facility] mg tablet 6-06 TABLET BY ity o f 00:00: MOUTH [place] 00 TWICE Medical DAILY WITH Branch MEALS (NEEDS FOLLOW UP VISIT FOR FURTHER REFILLS) atorvastati Yes [id number] 20mg Take 1 [facility] n 20 mg 6-06 tablet by [facility] of tablet 00:00: mouth at [place] 00 bedtime. Medical Branch escitalopra Yes [id number] 20mg Take 1 [facility] m oxalate 6-06 tablet by ity o f (LEXAPRO) 00:00: mouth [place] 20 mg 00 daily. Medical tablet Branch glyBURIDE 5 Yes [id number] TAKE 1 [facility] mg tablet 6-06 TABLET BY ity o f 00:00: MOUTH [place] 00 TWICE Medical DAILY WITH Branch MEALS (NEEDS FOLLOW UP VISIT FOR FURTHER REFILLS) atorvastati Yes [id number] 20mg Take 1 [facility] n 20 mg 6-06 tablet by [facility] of tablet 00:00: mouth at [place] 00 bedtime. Medical Branch escitalopra Yes [id number] 20mg Take 1 [facility] m oxalate 6-06 tablet by ity o f (LEXAPRO) 00:00: mouth [place] 20 mg 00 daily. Medical tablet Branch glyBURIDE 5 Yes [id number] TAKE 1 [facility] mg tablet 6-06 TABLET BY ity o f 00:00: MOUTH [place] 00 TWICE Medical DAILY WITH Branch MEALS (NEEDS FOLLOW UP VISIT FOR FURTHER REFILLS) atorvastati Yes [id number] 20mg Take 1 [facility] n 20 mg 6-06 tablet by [facility] of tablet 00:00: mouth at [place] 00 bedtime. Medical Branch escitalopra Yes [id number] 20mg Take 1 [facility] m oxalate 6-06 tablet by ity o f (LEXAPRO) 00:00: mouth [place] 20 mg 00 daily. Medical tablet Branch glyBURIDE 5 Yes [id number] TAKE 1 [facility] mg tablet 6-06 TABLET BY ity o f 00:00: MOUTH [place] 00 TWICE Medical DAILY WITH Branch MEALS (NEEDS FOLLOW UP VISIT FOR FURTHER REFILLS) atorvastati Yes [id number] 20mg Take 1 [facility] n 20 mg 6-06 tablet by [facility] of tablet 00:00: mouth at [place] 00 bedtime. Medical Branch escitalopra Yes [id number] 20mg Take 1 [facility] m oxalate 6-06 tablet by ity o f (LEXAPRO) 00:00: mouth [place] 20 mg 00 daily. Medical tablet Branch glyBURIDE 5 Yes [id number] TAKE 1 [facility] mg tablet 6-06 TABLET BY ity o f 00:00: MOUTH [place] 00 TWICE Medical DAILY WITH Branch MEALS (NEEDS FOLLOW UP VISIT FOR FURTHER REFILLS) atorvastati Yes [id number] 20mg Take 1 [facility] n 20 mg 6-06 tablet by [facility] of tablet 00:00: mouth at [place] 00 bedtime. Medical Branch escitalopra Yes [id number] 20mg Take 1 [facility] m oxalate 6-06 tablet by ity o f (LEXAPRO) 00:00: mouth [place] 20 mg 00 daily. Medical tablet Branch glyBURIDE 5 Yes [id number] TAKE 1 [facility] mg tablet 6-06 TABLET BY ity o f 00:00: MOUTH [place] 00 TWICE Medical DAILY WITH Branch MEALS (NEEDS FOLLOW UP VISIT FOR FURTHER REFILLS) atorvastati Yes [id number] 20mg Take 1 [facility] n 20 mg 6-06 tablet by [facility] of tablet 00:00: mouth at [place] 00 bedtime. Medical Branch escitalopra Yes [id number] 20mg Take 1 [facility] m oxalate 6-06 tablet by ity o f (LEXAPRO) 00:00: mouth [place] 20 mg 00 daily. Medical tablet Branch glyBURIDE 5 Yes [id number] TAKE 1 [facility] mg tablet 6-06 TABLET BY ity o f 00:00: MOUTH [place] 00 TWICE Medical DAILY WITH Branch MEALS (NEEDS FOLLOW UP VISIT FOR FURTHER REFILLS) atorvastati Yes [id number] 20mg Take 1 [facility] n 20 mg 6-06 tablet by [facility] of tablet 00:00: mouth at [place] 00 bedtime. Medical Branch escitalopra Yes [id number] 20mg Take 1 [facility] m oxalate 6-06 tablet by ity o f (LEXAPRO) 00:00: mouth [place] 20 mg 00 daily. Medical tablet Branch glyBURIDE 5 Yes [id number] TAKE 1 [facility] mg tablet 6-06 TABLET BY ity o f 00:00: MOUTH [place] 00 TWICE Medical DAILY WITH Branch MEALS (NEEDS FOLLOW UP VISIT FOR FURTHER REFILLS) atorvastati Yes [id number] 20mg Take 1 [facility] n 20 mg 6-06 tablet by [facility] of tablet 00:00: mouth at [place] 00 bedtime. Medical Branch escitalopra Yes [id number] 20mg Take 1 [facility] m oxalate 6-06 tablet by ity o f (LEXAPRO) 00:00: mouth [place] 20 mg 00 daily. Medical tablet Branch glyBURIDE 5 Yes [id number] TAKE 1 [facility] mg tablet 6-06 TABLET BY ity o f 00:00: MOUTH [place] 00 TWICE Medical DAILY WITH Branch MEALS (NEEDS FOLLOW UP VISIT FOR FURTHER REFILLS) atorvastati 2021-0 Yes [id number] 20mg Take 1 [facility] n 20 mg 6-06 tablet by [facility] of tablet 00:00: mouth at [place] 00 bedtime. Medical Branch escitalopra Yes [id number] 20mg Take 1 [facility] m oxalate 6-06 tablet by ity o f (LEXAPRO) 00:00: mouth [place] 20 mg 00 daily. Medical tablet Branch glyBURIDE 5 Yes [id number] TAKE 1 [facility] mg tablet 6-06 TABLET BY ity o f 00:00: MOUTH [place] 00 TWICE Medical DAILY WITH Branch MEALS (NEEDS FOLLOW UP VISIT FOR FURTHER REFILLS) atorvastati Yes [id number] 20mg Take 1 [facility] n 20 mg 6-06 tablet by [facility] of tablet 00:00: mouth at [place] 00 bedtime. Medical Branch escitalopra Yes [id number] 20mg Take 1 [facility] m oxalate 6-06 tablet by ity o f (LEXAPRO) 00:00: mouth [place] 20 mg 00 daily. Medical tablet Branch glyBURIDE 5 Yes [id number] TAKE 1 [facility] mg tablet 6-06 TABLET BY ity o f 00:00: MOUTH [place] 00 TWICE Medical DAILY WITH Branch MEALS (NEEDS FOLLOW UP VISIT FOR FURTHER REFILLS) empaglifloz 2021-0 2022- No [id number] 25mg Take 1 [facility] in 01-16 tablet by [facility] ([place]) 00:00: 00:00 mouth [place] 25 mg Tab 00 :00 every Medical morning. Branch empaglifloz 2021-0 2022- No [id number] 25mg Take 1 [facility] in 01-16 tablet by [facility] of ([place]) 00:00: 00:00 mouth [place] 25 [place] Tab 00 :00 every Medical morning. Branch empaglifloz 2021-0 2022- No [id number] 25mg Take 1 [facility] in 01-16 tablet by [facility] of ([place]) 00:00: 00:00 mouth [place] 25 [place] Tab 00 :00 every Medical morning. Branch empaglifloz 2022- No [id number] 25mg Take 1 [facility] in 01-16 tablet by [facility] of ([place]) 00:00: 00:00 mouth [place] 25 [place] Tab 00 :00 every Medical morning. [place] empaglifloz 2022- No [id number] 25mg Take 1 [facility] in 01-16 tablet by [facility] of ([facility]) 00:00: 00:00 mouth [place] 25 [place] Tab 00 :00 every Medical morning. [place] empaglifloz 2022- No [id number] 25mg Take 1 [facility] in 01-16 tablet by [facility] of ([place]) 00:00: 00:00 mouth [place] 25 [place] Tab 00 :00 every Medical morning. [place] NUVARING 2021- No [id number] 1{each} Insert 1 [facility] (NUVARING) 01-16 Each into ity of 0.12-0.015 00:00: 00:00 vagina [place] mg/24 hr 00 :00 once every Medic al vaginal month. Branch insert Insert vaginally and leave in place for 3 consecutiv e weeks, then remove for 1 week. NUVARING 2021- No [id number] 1{each} Insert 1 [facility] (NUVARING) 01-16 Each into [facility]y of 0.12-0.015 00:00: 00:00 vagina [place] mg/24 hr 00 :00 once every Medic al vaginal month. Branch insert Insert vaginally and leave in place for 3 consecutiv e weeks, then remove for 1 week. NUVARING 2021- No [id number] 1{each} Insert 1 [facility] (NUVARING) 01-16 Each into ity of 0.12-0.015 00:00: 00:00 vagina [place] mg/24 hr 00 :00 once every Medic al vaginal month. Branch insert Insert vaginally and leave in place for 3 consecutiv e weeks, then remove for 1 week. MELOXICAM Yes [id number] Take 1 [facility] 15 mg 5-25 tablet by [facility] tablet 00:00: mouth once [place] 00 daily Medical Branch MELOXICAM Yes [id number] Take 1 [facility] 15 mg 5-25 tablet by [facility] of tablet 00:00: mouth once daily Medical Branch MELOXICAM 0 Yes [id number] Take 1 [facility] 15 mg 5-25 tablet by [facility] of tablet 00:00: mouth once daily Medical Branch MELOXICAM 0 Yes [id number] Take 1 [facility] 15 mg 5-25 tablet by [facility] of tablet 00:00: mouth once daily Medical Branch MELOXICAM 0 Yes [id number] Take 1 [facility] 15 mg 5-25 tablet by [facility] of tablet 00:00: mouth once daily Medical Branch MELOXICAM 2- No [id number] Take 1 [facility] 15 mg 5-25 10-04 tablet by [facility] tablet 00:00: 00:00 mouth [place] 00 :00 daily [facility] MELOXICAM 2021-0 2- No [id number] Take 1 [facility] 15 mg 5-25 10-04 tablet by [facility] tablet 00:00: 00:00 mouth [place] 00 :00 daily [facility] tiZANidine 2-0 Yes 4mg Take 1 [facility] 4 mg tablet 4-12 tablet by [facility] of 00:00: mouth (three) Medical times Branch daily as needed (muscle spasm). tiZANidine 2-0 Yes 4mg Take 1 [facility] 4 mg tablet 4-12 tablet by [facility] of 00:00: mouth (three) Medical times Branch daily as needed (muscle spasm). tiZANidine 2-0 Yes 4mg Take 1 [facility] 4 mg tablet 4-12 tablet by [facility] of 00:00: mouth 3 (three) Medical times Branch daily as needed (muscle spasm). tiZANidine 2022-0 Yes 4mg Take 1 [facility] 4 mg tablet 4-12 tablet by [facility] of 00:00: mouth 3 (three) Medical times Branch daily as needed (muscle spasm). tiZANidine 2022-0 Yes 4mg Take 1 [facility] 4 mg tablet 4-12 tablet by [facility] of 00:00: mouth 3 (three) Medical times Branch daily as needed (muscle spasm). tiZANidine 2022-0 2022- No 4mg Take 1 [facility] 4 mg tablet 4-04 tablet by it y of 00:00: 00:00 mouth 3 [place] 00 :00 (three) Medical times Branch daily as needed (muscle spasm). tiZANidine 2021- No 4mg Take 1 [facility] 4 mg tablet 4- tablet by it y of 00:00: 00:00 mouth 3 [place] 00 :00 (three) Medical times Branch daily as needed (muscle spasm). MONTELUKAST Yes [id number] Take 1 [facility] 10 mg 1-03 tablet by [facility] of tablet 00:00: mouth once daily Medical Branch MONTELUKAST 0 Yes [id number] Take 1 [facility] 10 mg 1-03 tablet by [facility] of tablet 00:00: mouth once daily Medical Branch MONTELUKAST 0 Yes [id number] Take 1 [facility] 10 mg 1-03 tablet by [facility] of tablet 00:00: mouth once daily Medical Branch MONTELUKAST 0 Yes [id number] Take 1 [facility] 10 mg 1-03 tablet by [facility] of tablet 00:00: mouth once daily [facility] MONTELUKAST 0 Yes [id number] Take 1 [facility] 10 mg 1-03 tablet by [facility] of tablet 00:00: mouth once daily [facility] MONTELUKAST 0 Yes [id number] Take 1 [facility] 10 mg 1-03 tablet by ity of tablet 00:00: mouth once daily [facility] MONTELUKAST 2021-0 Yes [id number] Take 1 [facility] 10 mg 1-03 tablet by ity of tablet 00:00: mouth once daily [facility] MONTELUKAST 0 Yes [id number] Take 1 [facility] 10 mg 1-03 tablet by ity of tablet 00:00: mouth once daily [facility] MONTELUKAST 2021-0 Yes [id number] Take 1 [facility] 10 mg 1-03 tablet by ity of tablet 00:00: mouth once daily [facility] MONTELUKAST 2021-0 Yes [id number] Take 1 [facility] 10 mg 1-03 tablet by ity of tablet 00:00: mouth once daily [facility] MONTELUKAST 2022-0 Yes [id number] Take 1 [facility] 10 mg 1-03 tablet by ity of tablet 00:00: mouth once daily [facility] MONTELUKAST 0 Yes [id number] Take 1 [facility] 10 mg 1-03 tablet by ity of tablet 00:00: mouth once daily [facility] MONTELUKAST 0 Yes [id number] Take 1 [facility] 10 mg 1-03 tablet by ity of tablet 00:00: mouth once daily [facility] MONTELUKAST 0 Yes [id number] Take 1 [facility] 10 mg 1-03 tablet by ity of tablet 00:00: mouth once daily [facility] MONTELUKAST 0 Yes [id number] Take 1 [facility] 10 mg 1-03 tablet by ity of tablet 00:00: mouth once daily [facility] MONTELUKAST 0 Yes [id number] Take 1 [facility] 10 mg 1-03 tablet by ity of tablet 00:00: mouth once daily [facility] MONTELUKAST 0 Yes [id number] Take 1 [facility] 10 mg 1-03 tablet by ity of tablet 00:00: mouth once daily [facility] MONTELUKAST 0 Yes [id number] Take 1 [facility] 10 mg 1-03 tablet by ity of tablet 00:00: mouth once daily [facility] MONTELUKAST 0 Yes [id number] Take 1 [facility] 10 mg 1-03 tablet by ity of tablet 00:00: mouth once daily [facility] MONTELUKAST 0 Yes [id number] Take 1 [facility] 10 mg 1-03 tablet by ity of tablet 00:00: mouth once daily Medical [facility] MONTELUKAST 0 Yes [id number] Take 1 [facility] 10 mg 1-03 tablet by ity of tablet 00:00: mouth once daily [facility] MONTELUKAST 0 Yes [id number] Take 1 [facility] 10 mg 1-03 tablet by ity of tablet 00:00: mouth once daily Medical [facility] MONTELUKAST 0 Yes [id number] Take 1 [facility] 10 mg 1-03 tablet by ity of tablet 00:00: mouth once daily Medical [facility] MONTELUKAST 2022-0 Yes [id number] Take 1 [facility] 10 mg 1-03 tablet by ity of tablet 00:00: mouth once daily Medical [facility] MONTELUKAST 0 Yes [id number] Take 1 [facility] 10 mg 1-03 tablet by ity of tablet 00:00: mouth once daily [facility] MONTELUKAST 0 2021- No [id number] Take 1 [facility] 10 mg 1-03 12-05 tablet by ity of tablet 00:00: 00:[place] mouth [place] 00 :00 daily [facility] MONTELUKAST 2021-0 2021- No [id number] Take 1 [facility] 10 mg 1-03 12-05 tablet by ity of tablet 00:00: 00:[place] mouth once [place] 00 : daily [facility] MONTELUKAST 0 2021- No [id number] Take 1 [facility] 10 mg 1-03 12-05 tablet by ity of tablet 00:00: 00:00 mouth once [place] 00 :00 daily [facility] MONTELUKAST 2021- No [id number] Take 1 [facility] 10 mg 1-03 12-05 tablet by ity of tablet 00:00: 00:[place] mouth once [place] 00 :00 daily [facility] Guaifenesin 2020-08 Yes [id number] 5 ml po q [facility] 200 mg/5 mL 1-13 6 h prn ity o f Liqd 00:00: cough Medical [place] Guaifenesin 2020-08 Yes [id number] 5 ml po q [facility] 200 mg/5 mL 1-13 6 h prn ity o f Liqd 00:00: cough Medical Branch Guaifenesin 2020-08 Yes [id number] 5 ml po q [facility] 200 mg/5 mL 1-13 6 h prn ity o f Liqd 00:00: cough [facility] Guaifenesin 2020-08 Yes [id number] 5 ml po q [facility] 200 mg/5 mL 1-13 6 h prn ity o f Liqd 00:00: cough [place] [facility] Guaifenesin 2020-08 Yes [id number] 5 ml po q [facility] 200 mg/5 mL 1-13 6 h prn ity o f Liqd 00:00: cough [place] [facility] Guaifenesin 2020-08 Yes [id number] 5 ml po q [facility] 200 mg/5 mL 1-13 6 h prn ity o f Liqd 00:00: cough [place] [facility] Guaifenesin 2020-08 Yes [id number] 5 ml po q [facility] 200 mg/5 mL 1-13 6 h prn ity o f Liqd 00:00: cough [place] [facility] Guaifenesin 2020-08 Yes [id number] 5 ml po q [facility] 200 mg/5 mL 1-13 6 h prn ity o f Liqd 00:00: cough [place] [facility] Guaifenesin 2020-08 Yes [id number] 5 ml po q [facility] 200 mg/5 mL 1-13 6 h prn ity o f Liqd 00:00: cough [place] [facility] Guaifenesin 2020-08 Yes [id number] 5 ml po q [facility] 200 mg/5 mL 1-13 6 h prn ity o f Liqd 00:00: cough [place] [facility] Guaifenesin 2020-08 Yes [id number] 5 ml po q [facility] 200 mg/5 mL 1-13 6 h prn ity o f Liqd 00:00: cough [place] [facility] Guaifenesin 2020-08 Yes [id number] ml po q [facility] 200 mg/5 mL 1-13 6 h prn ity o f Liqd 00:00: cough [place] [facility] Guaifenesin 2020-08 Yes [id number] 5 ml po q [facility] 200 mg/5 mL 1-13 6 h prn ity o f Liqd 00:00: cough [place] [facility] Guaifenesin 2020-08 Yes [id number] 5 ml po q [facility] 200 mg/5 mL 1-13 6 h prn ity o f Liqd 00:00: cough [place] [facility] Guaifenesin 2020-08 Yes [id number] 5 ml po q [facility] 200 mg/5 mL 1-13 6 h prn ity o f Liqd 00:00: cough [place] [facility] Guaifenesin 2020-08 Yes [id number] 5 ml po q [facility] 200 mg/5 mL 1-13 6 h prn ity o f Liqd 00:00: cough [place] [facility] Guaifenesin 2020- Yes [id number] 5 ml po q [facility] 200 mg/5 mL 1-13 6 h prn ity o f Liqd 00:00: cough [place] [facility] Guaifenesin 2020- Yes [id number] 5 ml po q [facility] 200 mg/5 mL 1-13 6 h prn ity o f Liqd 00:00: cough [place] [facility] Guaifenesin 2020- Yes [id number] 5 ml po q [facility] 200 mg/5 mL 1-13 6 h prn ity o f Liqd 00:00: cough [place] [facility] Guaifenesin 2020- Yes [id number] 5 ml po q [facility] 200 mg/5 mL 1-13 6 h prn ity o f Liqd 00:00: cough [place] [facility] Guaifenesin 2020- Yes [id number] 5 ml po q [facility] 200 mg/5 mL 1-13 6 h prn ity o f Liqd 00:00: cough [place] [facility] Guaifenesin 2020- Yes [id number] 5 ml po q [facility] 200 mg/5 mL 1-13 6 h prn ity o f Liqd 00:00: cough [place] [facility] Guaifenesin 2020- Yes [id number] 5 ml po q [facility] 200 mg/5 mL 1-13 6 h prn ity o f Liqd 00:00: cough [place] [facility] Guaifenesin 2020- Yes [id number] 5 ml po q [facility] 200 mg/5 mL 1-13 6 h prn ity o f Liqd 00:00: cough [place] [facility] Guaifenesin 2020- Yes [id number] 5 ml po q [facility] 200 mg/5 mL 1-13 6 h prn ity o f Liqd 00:00: cough [place] [facility] Guaifenesin 2020-2- No [id number] 5 ml po q [facility] 200 mg/5 mL 1-13 12-05 6 h prn ity of Liqd 00:00: 00:00 cough [place] 00 [facility] Guaifenesin 2020-2- No [id number] 5 ml po q [facility] 200 mg/5 mL 1-13 12-05 6 h prn ity of Liqd 00:00: 00:00 cough [place] 00 :00 Medical Branch Guaifenesin 2020-2- No [id number] 5 ml po q [facility] 200 mg/5 mL 08-25- 6 h prn ity of Liqd 00:00: 00:00 cough [place] 00 :00 Medical Branch Guaifenesin 2020-08- No [id number] 5 ml po q [facility] 200 mg/5 mL 08-25-05 6 h prn ity of Liqd 00:00: 00:00 cough [place] 00 :00 Medical Branch mupirocin 2 2020-08 Yes [id number] Apply to [facility] % ointment 0-25 area(s) 3 ity of 00:00: (three) [place] 00 times Medical daily. Branch mupirocin 2 2020-08 Yes [id number] Apply to [facility] % ointment 0-25 area(s) 3 ity of 00:00: (three) [place] 00 times Medical daily. Branch mupirocin 2 2020-08 Yes [id number] Apply to [facility] % ointment 0-25 area(s) 3 ity of 00:00: (three) [place] 00 times Medical daily. Branch mupirocin 2 2020-08 Yes [id number] Apply to [facility] % ointment 0-25 area(s) 3 ity of 00:00: (three) [place] 00 times Medical daily. Branch mupirocin 2 2020-08 Yes [id number] Apply to [facility] % ointment 0-25 area(s) 3 ity of 00:00: (three) [place] 00 times Medical daily. Branch mupirocin 2 2020-08 Yes [id number] Apply to [facility] % ointment 0-25 area(s) 3 ity of 00:00: (three) [place] 00 times Medical daily. Branch mupirocin 2 2020-08 Yes [id number] Apply to [facility] % ointment 0-25 area(s) 3 ity of 00:00: (three) [place] 00 times Medical daily. Branch mupirocin 2 2020-08 Yes [id number] Apply to [facility] % ointment 0-25 area(s) 3 ity of 00:00: (three) [place] 00 times Medical daily. Branch mupirocin 2 2020- Yes [id number] Apply to [facility] % ointment 0-25 area(s) 3 ity of 00:00: (three) [place] 00 times Medical daily. Branch mupirocin 2 2020- Yes [id number] Apply to [facility] % ointment 0-25 area(s) 3 ity of 00:00: (three) [place] 00 times Medical daily. Branch mupirocin 2 2020- Yes [id number] Apply to [facility] % ointment 0-25 area(s) 3 ity of 00:00: (three) [place] 00 times Medical daily. Branch mupirocin 2 2020- Yes [id number] Apply to [facility] % ointment 0-25 area(s) 3 ity of 00:00: (three) [place] 00 times Medical daily. Branch mupirocin 2 2020- Yes [id number] Apply to [facility] % ointment 0-25 area(s) 3 ity of 00:00: (three) [place] 00 times Medical daily. Branch mupirocin 2 2020-08 Yes [id number] Apply to [facility] % ointment 0-25 area(s) 3 ity of 00:00: (three) [place] 00 times Medical daily. Branch mupirocin 2 2020- Yes [id number] Apply to [facility] % ointment 0-25 area(s) 3 ity of 00:00: (three) [place] 00 times Medical daily. Branch mupirocin 2 2020- Yes [id number] Apply to [facility] % ointment 0-25 area(s) 3 ity of 00:00: (three) [place] 00 times Medical daily. Branch mupirocin 2 2020- Yes [id number] Apply to [facility] % ointment 0-25 area(s) 3 ity of 00:00: (three) [place] 00 times Medical daily. Branch mupirocin 2 2020- Yes [id number] Apply to [facility] % ointment 0-25 area(s) 3 ity of 00:00: (three) [place] 00 times Medical daily. Branch mupirocin 2 2020- Yes [id number] Apply to [facility] % ointment 0-25 area(s) 3 ity of 00:00: (three) [place] 00 times Medical daily. Branch mupirocin 2 2020-08 Yes [id number] Apply to [facility] % ointment 0-25 area(s) 3 ity of 00:00: (three) [place] 00 times Medical daily. Branch mupirocin 2 2020-08 Yes [id number] Apply to [facility] % ointment 0-25 area(s) 3 ity of 00:00: (three) [place] 00 times Medical daily. Branch mupirocin 2 2020-08 Yes [id number] Apply to [facility] % ointment 0-25 area(s) 3 ity of 00:00: (three) [place] 00 times Medical daily. Branch mupirocin 2 2020-08 Yes [id number] Apply to [facility] % ointment 0-25 area(s) 3 ity of 00:00: (three) [place] 00 times Medical daily. Branch mupirocin 2 2020-08 Yes [id number] Apply to [facility] % ointment 0-25 area(s) 3 ity of 00:00: (three) [place] 00 times Medical daily. Branch mupirocin 2 2020-08 Yes [id number] Apply to [facility] % ointment 0-25 area(s) 3 ity of 00:00: (three) [place] 00 times Medical daily. Branch mupirocin 2 2020-08- No [id number] Apply to [facility] % ointment 0-25 12-05 area(s) 3 ity of 00:00: 00:00 (three) [place] 00 :00 times Medical daily. Branch mupirocin 2 2020-08- No [id number] Apply to [facility] % ointment 0-25 12-05 area(s) 3 ity of 00:00: 00:00 (three) [place] 00 :00 times Medical daily. Branch mupirocin 2 2020-2021- No [id number] Apply to [facility] % ointment 0-25 12-05 area(s) 3 ity of 00:00: 00:00 (three) [place] 00 :00 times Medical daily. Branch mupirocin 2 2020-08- No [id number] Apply to [facility] % ointment 0-25 12-05 area(s) 3 ity of 00:00: 00:00 (three) [place] 00 :00 times Medical daily. Branch albuterol Yes [id number] 2{puff} Inhale 2 [facility] 90 7-07 Puffs ity of mcg/actuati 00:00: every 6 [place] as on inhaler 00 (six) Medical hours as Branch needed for Wheezing or Shortness of Breath. albuterol Yes [id number] 2{puff} Inhale 2 [facility] 90 7-07 Puffs ity of mcg/actuati 00:00: every 6 [place] as on inhaler 00 (six) Medical hours as Branch needed for Wheezing or Shortness of Breath. albuterol Yes [id number] 2{puff} Inhale 2 [facility] 90 7-07 Puffs ity of mcg/actuati 00:00: every 6 [place] as on inhaler 00 (six) Medical hours as Branch needed for Wheezing or Shortness of Breath. albuterol Yes [id number] 2{puff} Inhale 2 [facility] 90 7-07 Puffs ity of mcg/actuati 00:00: every 6 [place] as on inhaler 00 (six) Medical hours as Branch needed for Wheezing or Shortness of Breath. albuterol Yes [id number] 2{puff} Inhale 2 [facility] 90 7-07 Puffs ity of mcg/actuati 00:00: every 6 [place] as on inhaler 00 (six) Medical hours as Branch needed for Wheezing or Shortness of Breath. albuterol Yes [id number] 2{puff} Inhale 2 [facility] 90 7-07 Puffs ity of mcg/actuati 00:00: every 6 [place] as on inhaler 00 (six) Medical hours as Branch needed for Wheezing or Shortness of Breath. albuterol Yes [id number] 2{puff} Inhale 2 [facility] 90 7-07 Puffs ity of mcg/actuati 00:00: every 6 [place] as on inhaler 00 (six) Medical hours as Branch needed for Wheezing or Shortness of Breath. albuterol Yes [id number] 2{puff} Inhale 2 [facility] 90 7-07 Puffs ity of mcg/actuati 00:00: every 6 [place] as on inhaler 00 (six) Medical hours as Branch needed for Wheezing or Shortness of Breath. albuterol Yes [id number] 2{puff} Inhale 2 [facility] 90 7-07 Puffs ity of mcg/actuati 00:00: every 6 [place] as on inhaler 00 (six) Medical hours as Branch needed for Wheezing or Shortness of Breath. albuterol Yes [id number] 2{puff} Inhale 2 [facility] 90 7-07 Puffs ity of mcg/actuati 00:00: every 6 [place] as on inhaler 00 (six) Medical hours as Branch needed for Wheezing or Shortness of Breath. albuterol Yes [id number] 2{puff} Inhale 2 [facility] 90 7-07 Puffs ity of mcg/actuati 00:00: every 6 [place] as on inhaler 00 (six) Medical hours as Branch needed for Wheezing or Shortness of Breath. albuterol Yes [id number] 2{puff} Inhale 2 [facility] 90 7-07 Puffs ity of mcg/actuati 00:00: every 6 [place] as on inhaler 00 (six) Medical hours as Branch needed for Wheezing or Shortness of Breath. albuterol Yes [id number] 2{puff} Inhale 2 [facility] 90 7-07 Puffs ity of mcg/actuati 00:00: every 6 [place] as on inhaler 00 (six) Medical hours as Branch needed for Wheezing or Shortness of Breath. albuterol Yes [id number] 2{puff} Inhale 2 [facility] 90 7-07 Puffs ity of mcg/actuati 00:00: every 6 [place] as on inhaler 00 (six) Medical hours as Branch needed for Wheezing or Shortness of Breath. albuterol Yes [id number] 2{puff} Inhale 2 [facility] 90 7-07 Puffs ity of mcg/actuati 00:00: every 6 [place] as on inhaler 00 (six) Medical hours as Branch needed for Wheezing or Shortness of Breath. albuterol Yes [id number] 2{puff} Inhale 2 [facility] 90 7-07 Puffs ity of mcg/actuati 00:00: every 6 [place] as on inhaler 00 (six) Medical hours as Branch needed for Wheezing or Shortness of Breath. albuterol Yes [id number] 2{puff} Inhale 2 [facility] 90 7-07 Puffs ity of mcg/actuati 00:00: every 6 [place] as on inhaler 00 (six) Medical hours as Branch needed for Wheezing or Shortness of Breath. albuterol Yes [id number] 2{puff} Inhale 2 [facility] 90 7-07 Puffs ity of mcg/actuati 00:00: every 6 [place] as on inhaler 00 (six) Medical hours as Branch needed for Wheezing or Shortness of Breath. albuterol Yes [id number] 2{puff} Inhale 2 [facility] 90 7-07 Puffs ity of mcg/actuati 00:00: every 6 [place] as on inhaler 00 (six) Medical hours as Branch needed for Wheezing or Shortness of Breath. albuterol Yes [id number] 2{puff} Inhale 2 [facility] 90 7-07 Puffs ity of mcg/actuati 00:00: every 6 [place] as on inhaler 00 (six) Medical hours as Branch needed for Wheezing or Shortness of Breath. albuterol Yes [id number] 2{puff} Inhale 2 [facility] 90 7-07 Puffs ity of mcg/actuati 00:00: every 6 [place] as on inhaler 00 (six) Medical hours as Branch needed for Wheezing or Shortness of Breath. albuterol Yes [id number] 2{puff} Inhale 2 [facility] 90 7-07 Puffs ity of mcg/actuati 00:00: every 6 [place] as on inhaler 00 (six) Medical hours as Branch needed for Wheezing or Shortness of Breath. albuterol Yes [id number] 2{puff} Inhale 2 [facility] 90 7-07 Puffs ity of mcg/actuati 00:00: every 6 [place] as on inhaler 00 (six) Medical hours as Branch needed for Wheezing or Shortness of Breath. albuterol Yes [id number] 2{puff} Inhale 2 [facility] 90 7-07 Puffs ity of mcg/actuati 00:00: every 6 [place] as on inhaler 00 (six) Medical hours as Branch needed for Wheezing or Shortness of Breath. albuterol Yes [id number] 2{puff} Inhale 2 [facility] 90 7-07 Puffs ity of mcg/actuati 00:00: every 6 [place] as on inhaler 00 (six) Medical hours as Branch needed for Wheezing or Shortness of Breath. albuterol Yes [id number] 2{puff} Inhale 2 [facility] 90 7-07 Puffs ity of mcg/actuati 00:00: every 6 [place] as on inhaler 00 (six) Medical hours as Branch needed for Wheezing or Shortness of Breath. albuterol Yes [id number] 2{puff} Inhale 2 [facility] 90 7-07 Puffs ity of mcg/actuati 00:00: every 6 [place] as on inhaler 00 (six) Medical hours as Branch needed for Wheezing or Shortness of Breath. albuterol Yes [id number] 2{puff} Inhale 2 [facility] 90 7-07 Puffs ity of mcg/actuati 00:00: every 6 [place] as on inhaler 00 (six) Medical hours as Branch needed for Wheezing or Shortness of Breath. albuterol Yes [id number] 2{puff} Inhale 2 [facility] 90 7-07 Puffs ity of mcg/actuati 00:00: every 6 [place] as on inhaler 00 (six) Medical hours as Branch needed for Wheezing or Shortness of Breath. albuterol Yes [id number] 2{puff} Inhale 2 [facility] 90 7-07 Puffs ity of mcg/actuati 00:00: every 6 [place] as on inhaler 00 (six) Medical hours as Branch needed for Wheezing or Shortness of Breath. albuterol Yes [id number] 2{puff} Inhale 2 [facility] 90 7-07 Puffs ity of mcg/actuati 00:00: every 6 [place] as on inhaler 00 (six) Medical hours as Branch needed for Wheezing or Shortness of Breath. albuterol Yes [id number] 2{puff} Inhale 2 [facility] 90 7-07 Puffs ity of mcg/actuati 00:00: every 6 [place] as on inhaler 00 (six) Medical hours as Branch needed for Wheezing or Shortness of Breath. albuterol Yes [id number] 2{puff} Inhale 2 [facility] 90 7-07 Puffs ity of mcg/actuati 00:00: every 6 [place] as on inhaler 00 (six) Medical hours as Branch needed for Wheezing or Shortness of Breath. albuterol Yes [id number] 2{puff} Inhale 2 [facility] 90 7-07 Puffs ity of mcg/actuati 00:00: every 6 [place] as on inhaler 00 (six) Medical hours as Branch needed for Wheezing or Shortness of Breath. albuterol Yes [id number] 2{puff} Inhale 2 [facility] 90 7-07 Puffs ity of mcg/actuati 00:00: every 6 [place] as on inhaler 00 (six) Medical hours as Branch needed for Wheezing or Shortness of Breath. albuterol Yes [id number] 2{puff} Inhale 2 [facility] 90 7-07 Puffs ity of mcg/actuati 00:00: every 6 [place] as on inhaler 00 (six) Medical hours as Branch needed for Wheezing or Shortness of Breath. albuterol Yes [id number] 2{puff} Inhale 2 [facility] 90 7-07 Puffs ity of mcg/actuati 00:00: every 6 [place] as on inhaler 00 (six) Medical hours as Branch needed for Wheezing or Shortness of Breath. albuterol Yes [id number] 2{puff} Inhale 2 [facility] 90 7-07 Puffs ity of mcg/actuati 00:00: every 6 [place] as on inhaler 00 (six) Medical hours as Branch needed for Wheezing or Shortness of Breath. albuterol Yes [id number] 2{puff} Inhale 2 [facility] 90 7-07 Puffs ity of mcg/actuati 00:00: every 6 [place] as on inhaler 00 (six) Medical hours as Branch needed for Wheezing or Shortness of Breath. albuterol Yes [id number] 2{puff} Inhale 2 [facility] 90 7-07 Puffs ity of mcg/actuati 00:00: every 6 [place] as on inhaler 00 (six) Medical hours as Branch needed for Wheezing or Shortness of Breath. albuterol Yes [id number] 2{puff} Inhale 2 [facility] 90 7-07 Puffs ity of mcg/actuati 00:00: every 6 [place] as on inhaler 00 (six) Medical hours as Branch needed for Wheezing or Shortness of Breath. albuterol Yes [id number] 2{puff} Inhale 2 [facility] 90 7-07 Puffs ity of mcg/actuati 00:00: every 6 [place] as on inhaler 00 (six) Medical hours as Branch needed for Wheezing or Shortness of Breath. albuterol Yes [id number] 2{puff} Inhale 2 [facility] 90 7-07 Puffs ity of mcg/actuati 00:00: every 6 [place] as on inhaler 00 (six) Medical hours as Branch needed for Wheezing or Shortness of Breath. albuterol Yes [id number] 2{puff} Inhale 2 [facility] 90 7-07 Puffs ity of mcg/actuati 00:00: every 6 [place] as on inhaler 00 (six) Medical hours as Branch needed for Wheezing or Shortness of Breath. albuterol Yes [id number] 2{puff} Inhale 2 [facility] 90 7-07 Puffs ity of mcg/actuati 00:00: every 6 [place] as on inhaler 00 (six) Medical hours as Branch needed for Wheezing or Shortness of Breath. albuterol Yes [id number] 2{puff} Inhale 2 [facility] 90 7-07 Puffs ity of mcg/actuati 00:00: every 6 [place] as on inhaler 00 (six) Medical hours as Branch needed for Wheezing or Shortness of Breath. albuterol Yes [id number] 2{puff} Inhale 2 [facility] 90 7-07 Puffs ity of mcg/actuati 00:00: every 6 [place] as on inhaler 00 (six) Medical hours as Branch needed for Wheezing or Shortness of Breath. albuterol Yes [id number] 2{puff} Inhale 2 [facility] 90 7-07 Puffs ity of mcg/actuati 00:00: every 6 [place] as on inhaler 00 (six) Medical hours as Branch needed for Wheezing or Shortness of Breath. albuterol Yes [id number] 2{puff} Inhale 2 [facility] 90 7-07 Puffs ity of mcg/actuati 00:00: every 6 [place] as on inhaler 00 (six) Medical hours as Branch needed for Wheezing or Shortness of Breath. albuterol Yes [id number] 2{puff} Inhale 2 [facility] 90 7-07 Puffs ity of mcg/actuati 00:00: every 6 [place] as on inhaler 00 (six) Medical hours as Branch needed for Wheezing or Shortness of Breath. albuterol Yes [id number] 2{puff} Inhale 2 [facility] 90 7-07 Puffs ity of mcg/actuati 00:00: every 6 [place] as on inhaler 00 (six) Medical hours as Branch needed for Wheezing or Shortness of Breath. albuterol Yes [id number] 2{puff} Inhale 2 [facility] 90 7-07 Puffs ity of mcg/actuati 00:00: every 6 [place] as on inhaler 00 (six) Medical hours as Branch needed for Wheezing or Shortness of Breath. albuterol Yes [id number] 2{puff} Inhale 2 [facility] 90 7-07 Puffs ity of mcg/actuati 00:00: every 6 [place] as on inhaler 00 (six) Medical hours as Branch needed for Wheezing or Shortness of Breath. albuterol Yes [id number] 2{puff} Inhale 2 [facility] 90 7-07 Puffs ity of mcg/actuati 00:00: every 6 [place] as on inhaler 00 (six) Medical hours as Branch needed for Wheezing or Shortness of Breath. albuterol Yes [id number] 2{puff} Inhale 2 [facility] 90 7-07 Puffs ity of mcg/actuati 00:00: every 6 [place] as on inhaler 00 (six) Medical hours as Branch needed for Wheezing or Shortness of Breath. albuterol Yes [id number] 2{puff} Inhale 2 [facility] 90 7-07 Puffs ity of mcg/actuati 00:00: every 6 [place] as on inhaler 00 (six) Medical hours as Branch needed for Wheezing or Shortness of Breath. albuterol Yes [id number] 2{puff} Inhale 2 [facility] 90 7-07 Puffs ity of mcg/actuati 00:00: every 6 [place] as on inhaler 00 (six) Medical hours as Branch needed for Wheezing or Shortness of Breath. albuterol Yes [id number] 2{puff} Inhale 2 [facility] 90 7-07 Puffs ity of mcg/actuati 00:00: every 6 [place] as on inhaler 00 (six) Medical hours as Branch needed for Wheezing or Shortness of Breath. albuterol Yes [id number] 2{puff} Inhale 2 [facility] 90 7-07 Puffs ity of mcg/actuati 00:00: every 6 [place] as on inhaler 00 (six) Medical hours as Branch needed for Wheezing or Shortness of Breath. albuterol Yes [id number] 2{puff} Inhale 2 [facility] 90 7-07 Puffs ity of mcg/actuati 00:00: every 6 [place] as on inhaler 00 (six) Medical hours as Branch needed for Wheezing or Shortness of Breath. albuterol Yes [id number] 2{puff} Inhale 2 [facility] 90 7-07 Puffs ity of mcg/actuati 00:00: every 6 [place] as on inhaler 00 (six) Medical hours as Branch needed for Wheezing or Shortness of Breath. albuterol Yes [id number] 2{puff} Inhale 2 [facility] 90 7-07 Puffs ity of mcg/actuati 00:00: every 6 [place] as on inhaler 00 (six) Medical hours as Branch needed for Wheezing or Shortness of Breath. albuterol Yes [id number] 2{puff} Inhale 2 [facility] 90 7-07 Puffs ity of mcg/actuati 00:00: every 6 [place] as on inhaler 00 (six) Medical hours as Branch needed for Wheezing or Shortness of Breath. albuterol Yes [id number] 2{puff} Inhale 2 [facility] 90 7-07 Puffs ity of mcg/actuati 00:00: every 6 [place] as on inhaler 00 (six) Medical hours as Branch needed for Wheezing or Shortness of Breath. albuterol Yes [id number] 2{puff} Inhale 2 [facility] 90 7-07 Puffs ity of mcg/actuati 00:00: every 6 [place] as on inhaler 00 (six) Medical hours as Branch needed for Wheezing or Shortness of Breath. albuterol Yes [id number] 2{puff} Inhale 2 [facility] 90 7-07 Puffs ity of mcg/actuati 00:00: every 6 [place] as on inhaler 00 (six) Medical hours as Branch needed for Wheezing or Shortness of Breath. albuterol Yes [id number] 2{puff} Inhale 2 [facility] 90 7-07 Puffs ity of mcg/actuati 00:00: every 6 [place] as on inhaler 00 (six) Medical hours as Branch needed for Wheezing or Shortness of Breath. hydrocortis Yes [id number] 1{appli Insert 1 [facility] 5-03 cator} Applicator ity of ne rectal 00:00: into [place] foam 00 rectum 2 Medical (two) Branch times daily. hydrocortis Yes [id number] 1{appli Insert 1 [facility] 5-03 cator} Applicator ity of ne rectal 00:00: into [place] foam 00 rectum 2 Medical (two) Branch times daily. hydrocortis Yes [id number] 1{appli Insert 1 [facility] 5-03 cator} Applicator ity of ne rectal 00:00: into [place] foam 00 rectum 2 Medical (two) Branch times daily. hydrocortis Yes [id number] 1{appli Insert 1 [facility] 5-03 cator} Applicator ity of ne rectal 00:00: into [place] foam 00 rectum 2 Medical (two) Branch times daily. hydrocortis Yes [id number] 1{appli Insert 1 [facility] 5-03 cator} Applicator ity of ne rectal 00:00: into [place] foam 00 rectum 2 Medical (two) Branch times daily. hydrocortis Yes [id number] 1{appli Insert 1 [facility] 5-03 cator} Applicator ity of ne rectal 00:00: into [place] foam 00 rectum 2 Medical (two) Branch times daily. hydrocortis Yes [id number] 1{appli Insert 1 [facility] 5-03 cator} Applicator ity of ne rectal 00:00: into [place] foam 00 rectum 2 Medical (two) Branch times daily. hydrocortis Yes [id number] 1{appli Insert 1 [facility] 5-03 cator} Applicator ity of ne rectal 00:00: into [place] foam 00 rectum 2 Medical (two) Branch times daily. hydrocortis Yes [id number] 1{appli Insert 1 [facility] 5-03 cator} Applicator ity of ne rectal 00:00: into [place] foam 00 rectum 2 Medical (two) Branch times daily. hydrocortis Yes [id number] 1{appli Insert 1 [facility] 5-03 cator} Applicator ity of ne rectal 00:00: into [place] foam 00 rectum 2 Medical (two) Branch times daily. hydrocortis Yes [id number] 1{appli Insert 1 [facility] 5-03 cator} Applicator ity of ne rectal 00:00: into [place] foam 00 rectum 2 Medical (two) Branch times daily. hydrocortis Yes [id number] 1{appli Insert 1 [facility] 5-03 cator} Applicator ity of ne rectal 00:00: into [place] foam 00 rectum 2 Medical (two) Branch times daily. hydrocortis Yes [id number] 1{appli Insert 1 [facility] 5-03 cator} Applicator ity of ne rectal 00:00: into [place] foam 00 rectum 2 Medical (two) Branch times daily. hydrocortis Yes [id number] 1{appli Insert 1 [facility] 5-03 cator} Applicator ity of ne rectal 00:00: into [place] foam 00 rectum 2 Medical (two) Branch times daily. hydrocortis Yes [id number] 1{appli Insert 1 [facility] 5-03 cator} Applicator ity of ne rectal 00:00: into [place] foam 00 rectum 2 Medical (two) Branch times daily. hydrocortis Yes [id number] 1{appli Insert 1 [facility] 5-03 cator} Applicator ity of ne rectal 00:00: into [place] foam 00 rectum 2 Medical (two) Branch times daily. hydrocortis Yes [id number] 1{appli Insert 1 [facility] 5-03 cator} Applicator ity of ne rectal 00:00: into [place] foam 00 rectum 2 Medical (two) Branch times daily. hydrocortis Yes [id number] 1{appli Insert 1 [facility] 5-03 cator} Applicator ity of ne rectal 00:00: into [place] foam 00 rectum 2 Medical (two) Branch times daily. hydrocortis Yes [id number] 1{appli Insert 1 [facility] 5-03 cator} Applicator ity of ne rectal 00:00: into [place] foam 00 rectum 2 Medical (two) Branch times daily. hydrocortis Yes [id number] 1{appli Insert 1 [facility] 5-03 cator} Applicator ity of ne rectal 00:00: into [place] foam 00 rectum 2 Medical (two) Branch times daily. hydrocortis Yes [id number] 1{appli Insert 1 [facility] 5-03 cator} Applicator ity of ne rectal 00:00: into [place] foam 00 rectum 2 Medical (two) Branch times daily. hydrocortis Yes [id number] 1{appli Insert 1 [facility] 5-03 cator} Applicator ity of ne rectal 00:00: into [place] foam 00 rectum 2 Medical (two) Branch times daily. hydrocortis Yes [id number] 1{appli Insert 1 [facility] 5-03 cator} Applicator ity of ne rectal 00:00: into [place] foam 00 rectum 2 Medical (two) Branch times daily. hydrocortis Yes [id number] 1{appli Insert 1 [facility] 5-03 cator} Applicator ity of ne rectal 00:00: into [place] foam 00 rectum 2 Medical (two) Branch times daily. hydrocortis Yes [id number] 1{appli Insert 1 [facility]pr[facility] 5-03 cator} Applicator ity of ne rectal 00:00: into [place] foam 00 rectum 2 Medical (two) Branch times daily. hydrocortis [id number] 1{appli Insert 1 [facility]pram[facility] 5-05 cator} Applicator ity of ne rectal 00:00: 00:00 into [place] foam 00 :00 rectum 2 Medical (two) Branch times daily. hydrocortis 2021- No [id number] 1{appli Insert 1 [facility] one[facility]pram[facility] 5-10 22-05 cator} Applicator ity of ne rectal 00:00: 00:00 into [place] foam 00 :00 rectum 2 Medical (two) Branch times daily. hydrocortis 2021- No [id number] 1{appli Insert 1 [facility] one[facility]pram[facility] 5-10 22-05 cator} Applicator ity of ne rectal 00:00: 00:00 into [place] foam 00 :00 rectum 2 Medical (two) Branch times daily. hydrocortis 2021- No [id number] 1{appli Insert 1 [facility]pram[facility] 5-05 cator} Applicator ity of ne rectal 00:00: 00:00 into [place] foam 00 :00 rectum 2 Medical (two) Branch times daily. [...] 00 Medical x 5/16 Sy[facility] Branch Insulin 2020-2021- No Use as Univers Syringe-Nee -12 07-17 directed ity of dle U-100 1 00:00: 00:00 [place] mL 31 gauge 00 :00 Medical x 5/16 Syrg Branch Insulin 2019-2021- No Use as [facility] Syringe-Nee -07-17 directed ity of dle U-100 1 00:00: 00:00 [place] mL 31 gauge 00 :00 Medical x 5/16 Syrg Branch Insulin 2019-2021- No Use as [facility] Syringe-Nee -07-17 directed ity of dle U-100 1 00:00: 00:00 [place] mL 31 gauge 00 :00 Medical x 5/16 Syrg Branch Insulin 2019-2021- No Use as [facility] Syringe-Nee -07-17 directed ity of dle U-100 1 00:00: 00:00 [place] mL 31 gauge 00 :00 Medical x 5/16 [facility] Branch Immunizations Ordered Filled Immunization Date Status Comments [facility] e Immunization Name Name Influenza Virus 2022-05-29 Completed Universit y of Vaccine 00:00:00 [facility] Influenza Virus 2022-05-29 Completed Universit y of Vaccine Quad .5 mL 00:00:00 [facility] 6+ MO Branch Influenza Virus 2022-05-29 Completed Universit y of Vaccine 00:00:00 [facility] Influenza Virus 2022-05-29 Completed Universit y of Vaccine Quad .5 mL 00:00:00 [facility] 6+ MO Branch Influenza Virus 2022-05-29 Completed Universit y of Vaccine 00:00:00 [facility] Influenza Virus 2022-05-29 Completed Universit y of Vaccine Quad .5 mL 00:00:00 [facility] 6+ MO Branch Influenza Virus 2022-05-29 Completed Universit y of Vaccine 00:00:00 [facility] Influenza Virus 2022-05-29 Completed Universit y of Vaccine Quad .5 mL 00:00:00 [facility] 6+ MO Branch Influenza Virus 2022-05-29 Completed Universit y of Vaccine 00:00:00 [facility] Influenza Virus 2022-05-29 Completed Universit y of Vaccine Quad .5 mL 00:00:00 [facility] 6+ MO Branch Influenza Virus 2021-07-01 Completed Universit y of Vaccine Quad .5 mL 00:00:00 [facility] 6+ MO Branch Influenza Virus 2021-07-01 Completed Universit y of Vaccine Quad .5 mL 00:00:00 [facility] IM 6+ MO Branch Influenza Virus 2021-07-01 Completed Universit y of Vaccine Quad .5 mL 00:00:00 [facility] 6+ MO Branch Influenza Virus 2021-07-01 Completed Universit y of Vaccine Quad .5 mL 00:00:00 [place] [facility] 6+ MO Branch Influenza Virus 2021-07-01 Completed Universit y of Vaccine Quad .5 mL 00:00:00 [place] [facility] 6+ MO Branch Influenza Virus 2021-07-01 Completed Universit y of Vaccine Quad .5 mL 00:00:00 [place] [facility] 6+ MO Branch Influenza Virus 2021-07-01 Completed Universit y of Vaccine Quad .5 mL 00:00:00 [facility] IM 6+ MO Branch Influenza Virus 2021-07-01 [...] y of Vaccine Quad .5 mL 00:00:00 [place] [facility] IM 6+ MO Branch Pneumococcal 2020-07-13 [...] y of Vaccine Quad .5 mL 00:00:00 [place] [facility] IM 6+ MO Branch Influenza Virus 2020-05-13 Completed Universit y of Vaccine Quad .5 mL 00:00:00 [place] [facility] 6+ MO Branch Influenza Virus 2020-05-13 Completed Universit y of Vaccine Quad .5 mL 00:00:00 [place] [facility] 6+ MO Branch Influenza Virus 2020-05-13 Completed Universit y of Vaccine Quad .5 mL 00:00:00 [place] [facility] 6+ MO Branch Influenza Virus 2020-05-13 Completed Universit y of Vaccine Quad .5 mL 00:00:00 [place] [facility] 6+ MO Branch Influenza Virus 2020-05-13 Completed Universit y of Vaccine Quad .5 mL 00:00:00 [facility] IM 6+ MO Branch Influenza Virus 2020-05-13 Completed Universit y of Vaccine Quad .5 mL 00:00:00 [facility] 6+ MO Branch Influenza Virus 2020-05-13 Completed [...] y of Vaccine Quad .5 mL 00:00:00 [place] [facility] IM 6+ MO Branch Influenza Virus 2020-05-13 Completed Universit y of Vaccine Quad .5 mL 00:00:00 [place] [facility] IM 6+ MO Branch Influenza Virus 2020-05-13 Completed Universit y of Vaccine Quad .5 mL 00:00:00 [place] [facility] IM 6+ MO Branch Influenza Virus 2017-05-29 Completed Universit y of Vaccine Quad IM 3+ 00:00:00 [facility] Influenza Virus 2017-05-29 Completed Universit y of Vaccine Quad IM 3+ 00:00:00 [facility] Influenza Virus 2017-05-29 Completed Universit y of Vaccine Quad IM 3+ 00:00:00 [facility] Influenza Virus 2017-05-29 Completed Universit y of Vaccine Quad IM 3+ 00:00:00 [facility] Influenza Virus 2017-05-29 Completed Universit y of Vaccine Quad IM 3+ 00:00:00 [facility] Influenza Virus 2017-05-29 Completed Universit y of Vaccine Quad IM 3+ 00:00:00 [facility] Influenza Virus 2017-05-29 Completed Universit y of Vaccine Quad IM 3+ 00:00:00 [facility] Influenza Virus 2017-05-29 Completed Universit y of Vaccine Quad IM 3+ 00:00:00 [facility] Influenza Virus 2017-05-29 Completed Universit y of Vaccine Quad IM 3+ 00:00:00 [facility] Influenza Virus 2017-05-29 Completed Universit y of Vaccine Quad IM 3+ 00:00:00 [facility] Influenza Virus 2017-05-29 Completed Universit y of Vaccine Quad IM 3+ 00:00:00 [facility] Influenza Virus 2017-05-29 Completed Universit y of Vaccine Quad IM 3+ 00:00:00 [facility] Influenza Virus 2017-05-29 Completed Universit y of Vaccine Quad IM 3+ 00:00:00 [facility] Influenza Virus 2017-05-29 Completed Universit y of Vaccine Quad IM 3+ 00:00:00 [facility] Influenza Virus 2017-05-29 Completed Universit y of Vaccine Quad IM 3+ 00:00:00 [facility] Influenza Virus 2017-05-29 Completed Universit y of Vaccine Quad IM 3+ 00:00:00 [facility] Influenza Virus 2017-05-29 Completed Universit y of Vaccine Quad IM 3+ 00:00:00 [facility] Influenza Virus 2017-05-29 Completed Universit y of Vaccine Quad IM 3+ 00:00:00 [facility] Influenza Virus 2017-05-29 Completed Universit y of Vaccine Quad IM 3+ 00:00:00 [facility] Influenza Virus 2017-05-29 Completed Universit y of Vaccine Quad IM 3+ 00:00:00 [facility] Influenza Virus 2017-05-29 Completed Universit y of Vaccine Quad IM 3+ 00:00:00 [facility] Influenza Virus 2017-05-29 Completed Universit y of Vaccine Quad IM 3+ 00:00:00 [facility] Influenza Virus 2017-05-29 Completed Universit y of Vaccine Quad IM 3+ 00:00:00 [facility] Influenza Virus 2017-05-29 Completed Universit y of Vaccine Quad IM 3+ 00:00:00 [facility] Influenza Virus 2017-05-29 Completed Universit y of Vaccine Quad IM 3+ 00:00:00 [facility] Influenza Virus 2017-05-29 Completed Universit y of Vaccine Quad IM 3+ 00:00:00 [facility] Influenza Virus 2017-05-29 Completed Universit y of Vaccine Quad IM 3+ 00:00:00 [facility] Influenza Virus 2017-05-29 Completed Universit y of Vaccine Quad IM 3+ 00:00:00 [facility] Influenza Virus 2017-05-29 Completed Universit y of Vaccine Quad IM 3+ 00:00:00 [facility] Influenza Virus 2017-05-29 Completed Universit y of Vaccine Quad IM 3+ 00:00:00 [facility] Influenza Virus 2017-05-29 Completed Universit y of Vaccine Quad IM 3+ 00:00:00 [facility] Influenza Virus 2017-05-29 Completed Universit y of Vaccine Quad IM 3+ 00:00:00 [facility] Influenza Virus 2017-05-29 Completed Universit y of Vaccine Quad IM 3+ 00:00:00 [facility] Influenza Virus 2017-05-29 Completed Universit y of Vaccine Quad IM 3+ 00:00:00 [facility] Influenza Virus 2017-05-29 Completed Universit y of Vaccine Quad IM 3+ 00:00:00 [facility] Influenza Virus 2017-05-29 Completed Universit y of Vaccine Quad IM 3+ 00:00:00 [facility] Influenza Virus 2017-05-29 Completed Universit y of Vaccine Quad IM 3+ 00:00:00 [facility] Influenza Virus 2017-05-29 Completed Universit y of Vaccine Quad IM 3+ 00:00:00 [facility] Influenza Virus 2017-05-29 Completed Universit y of Vaccine Quad IM 3+ 00:00:00 [facility] Influenza Virus 2017-05-29 Completed Universit y of Vaccine Quad IM 3+ 00:00:00 [facility] Influenza Virus 2017-05-29 Completed Universit y of Vaccine Quad IM 3+ 00:00:00 [facility] Influenza Virus 2017-05-29 Completed Universit y of Vaccine Quad IM 3+ 00:00:00 [facility] Influenza Virus 2017-05-29 Completed Universit y of Vaccine Quad IM 3+ 00:00:00 [facility] Influenza Virus 2017-05-29 Completed Universit y of Vaccine Quad IM 3+ 00:00:00 [facility] Influenza Virus 2017-05-29 Completed Universit y of Vaccine Quad IM 3+ 00:00:00 [facility] Influenza Virus 2017-05-29 Completed Universit y of Vaccine Quad IM 3+ 00:00:00 [facility] Influenza Virus 2017-05-29 Completed Universit y of Vaccine Quad IM 3+ 00:00:00 [facility] Influenza Virus 2017-05-29 Completed Universit y of Vaccine Quad IM 3+ 00:00:00 [facility] Influenza Virus 2017-05-29 Completed Universit y of Vaccine Quad IM 3+ 00:00:00 [facility] Influenza Virus 2017-05-29 Completed Universit y of Vaccine Quad IM 3+ 00:00:00 [facility] Influenza Virus 2017-05-29 Completed Universit y of Vaccine Quad IM 3+ 00:00:00 [facility] Influenza Virus 2017-05-29 Completed Universit y of Vaccine Quad IM 3+ 00:00:00 [facility] Influenza Virus 2017-05-29 Completed Universit y of Vaccine Quad IM 3+ 00:00:00 [facility] Influenza Virus 2017-05-29 Completed Universit y of Vaccine Quad IM 3+ 00:00:00 [facility] Influenza Virus 2017-05-29 Completed Universit y of Vaccine Quad IM 3+ 00:00:00 [facility] Influenza Virus 2017-05-29 Completed Universit y of Vaccine Quad IM 3+ 00:00:00 [facility] Influenza Virus 2017-05-29 Completed Universit y of Vaccine Quad IM 3+ 00:00:00 [facility] Influenza Virus 2017-05-29 Completed Universit y of Vaccine Quad IM 3+ 00:00:00 [facility] Influenza Virus 2017-05-29 Completed Universit y of Vaccine Quad IM 3+ 00:00:00 [facility] Influenza Virus 2017-05-29 Completed Universit y of Vaccine Quad IM 3+ 00:00:00 [facility] Influenza Virus 2017-05-29 Completed Universit y of Vaccine Quad IM 3+ 00:00:00 [facility] Influenza Virus 2017-05-29 Completed Universit y of Vaccine Quad IM 3+ 00:00:00 [facility] Influenza Virus 2017-05-29 Completed Universit y of Vaccine Quad IM 3+ 00:00:00 [facility] Influenza Virus 2017-05-29 Completed Universit y of Vaccine Quad IM 3+ 00:00:00 [facility] Influenza Virus 2017-05-29 Completed Universit y of Vaccine Quad IM 3+ 00:00:00 [facility] Influenza Virus 2017-05-29 Completed Universit y of Vaccine Quad IM 3+ 00:00:00 [facility] Influenza Virus 2017-05-29 Completed Universit y of Vaccine Quad IM 3+ 00:00:00 [facility] MMR 2017-04-29 Completed University of 00:00:00 [facility] 2017-04-29 Completed University of 00:00:00 [facility] 2017-04-29 Completed University of 00:00:00 [facility] 2017-04-29 Completed University of 00:00:00 [facility] 2017-04-29 Completed University of 00:00:00 [facility] 2017-04-29 Completed University of 00:00:00 [facility] 2017-04-29 Completed University of 00:00:00 [facility] 2017-04-29 Completed University of 00:00:00 [facility] 2017-04-29 Completed University of 00:00:00 [facility] 2017-04-29 Completed University of 00:00:00 [facility] 2017-04-29 Completed University of 00:00:00 [facility] 2017-04-29 Completed University of 00:00:00 [facility] 2017-04-29 Completed University of 00:00:00 [facility] 2017-04-29 Completed University of 00:00:00 [facility] 2017-04-29 Completed University of 00:00:00 [facility] 2017-04-29 Completed University of 00:00:00 [facility] 2017-04-29 Completed University of 00:00:00 [facility] 2017-04-29 Completed University of 00:00:00 [facility] 2017-04-29 Completed University of 00:00:00 [facility] 2017-04-29 Completed University of 00:00:00 [facility] 2017-04-29 Completed University of 00:00:00 [facility] 2017-04-29 Completed University of 00:00:00 [facility] 2017-04-29 Completed University of 00:00:00 [facility] 2017-04-29 Completed University of 00:00:00 [facility] 2017-04-29 Completed University of 00:00:00 [facility] 2017-04-29 Completed University of 00:00:00 [facility] 2017-04-29 Completed University of 00:00:00 [facility] 2017-04-29 Completed University of 00:00:00 [facility] 2017-04-29 Completed University of 00:00:00 [facility] 2017-04-29 Completed University of 00:00:00 [facility] 2017-04-29 Completed University of 00:00:00 [facility] 2017-04-29 Completed University of 00:00:00 [facility] 2017-04-29 Completed University of 00:00:00 [facility] 2017-04-29 Completed University of 00:00:00 [facility] 2017-04-29 Completed University of 00:00:00 [facility] 2017-04-29 Completed University of 00:00:00 [facility] 2017-04-29 Completed University of 00:00:00 [facility] 2017-04-29 Completed University of 00:00:00 [facility] 2017-04-29 Completed University of 00:00:00 [facility] 2017-04-29 Completed University of 00:00:00 [facility] 2017-04-29 Completed University of 00:00:00 [facility] 2017-04-29 Completed University of 00:00:00 [facility] 2017-04-29 Completed University of 00:00:00 [facility] 2017-04-29 Completed University of 00:00:00 [facility] 2017-04-29 Completed University of 00:00:00 [facility] 2017-04-29 Completed University of 00:00:00 [facility] 2017-04-29 Completed University of 00:00:00 [facility] 2017-04-29 Completed University of 00:00:00 [facility] 2017-04-29 Completed University of 00:00:00 [facility] 2017-04-29 Completed University of 00:00:00 [facility] 2017-04-29 Completed University of 00:00:00 [facility] 2017-04-29 Completed University of 00:00:00 [facility] 2017-04-29 Completed University of 00:00:00 [facility] 2017-04-29 Completed University of 00:00:00 [facility] 2017-04-29 Completed University of 00:00:00 [facility] 2017-04-29 Completed University of 00:00:00 [facility] 2017-04-29 Completed University of 00:00:00 [facility] 2017-04-29 Completed University of 00:00:00 [facility] 2017-04-29 Completed University of 00:00:00 [facility] 2017-04-29 Completed University of 00:00:00 [facility] MMR 2017-04-29 Completed University of 00:00:00 [facility] MMR 2017-04-29 Completed University of 00:00:00 [facility] MMR 2017-04-29 Completed University of 00:00:00 [facility] MMR 2017-04-29 Completed University of 00:00:00 [facility] MMR 2017-04-29 Completed University of 00:00:00 [facility] MMR 2017-04-29 Completed University of 00:00:00 [facility] MMR 2017-04-29 Completed University of 00:00:00 [facility] TDAP 2017-02-28 Completed University of 00:00:00 [facility] TDAP 2017-02-28 Completed University of 00:00:00 [facility] TDAP 2017-02-28 Completed University of 00:00:00 [facility] TDAP 2017-02-28 Completed University of 00:00:00 [facility] TDAP 2017-02-28 Completed University of 00:00:00 [facility] TDAP 2017-02-28 Completed University of 00:00:00 [facility] TDAP 2017-02-28 Completed University of 00:00:00 [facility] TDAP 2017-02-28 Completed University of 00:00:00 [facility] TDAP 2017-02-28 Completed University of 00:00:00 [facility] TDAP 2017-02-28 Completed University of 00:00:00 [facility] TDAP 2017-02-28 Completed University of 00:00:00 [facility] TDAP 2017-02-28 Completed University of 00:00:00 [facility] TDAP 2017-02-28 Completed University of 00:00:00 [facility] TDAP 2017-02-28 Completed University of 00:00:00 [facility] TDAP 2017-02-28 Completed University of 00:00:00 [facility] TDAP 2017-02-28 Completed [facility] 00:00:00 [facility] TDAP 2017-02-28 Completed [facility] 00:00:00 [facility] TDAP 2017-02-28 Completed [facility] 00:00:00 [facility] TDAP 2017-02-28 Completed University of 00:00:00 [facility] TDAP 2017-02-28 Completed [facility] 00:00:00 [facility] TDAP 2017-02-28 Completed [facility] 00:00:00 [facility] TDAP 2017-02-28 Completed [facility] 00:00:00 [facility] TDAP 2017-02-28 Completed [facility] 00:00:00 [facility] TDAP 2017-02-28 Completed [facility] 00[facility]00:00 [facility] TDAP 2017-02-28 Completed [facility] 00:00:00 [facility] TDAP 2017-02-28 Completed [facility] 00[facility]00:00 [facility] TDAP 2017-02-28 Completed [facility] 00:00:00 [facility] TDAP 2017-02-28 Completed [facility] 00:00:00 [facility] TDAP 2017-02-28 Completed [facility] 00:00:00 [facility] TDAP 2017-02-28 Completed [facility] 00:00:00 [facility] TDAP 2017-02-28 Completed [facility] 00:00:00 [facility] TDAP 2017-02-28 Completed [facility] of 00:00:00 [facility] TDAP 2017-02-28 Completed University of 00:00:00 [facility] TDAP 2017-02-28 Completed University of 00:00:00 [facility] TDAP 2017-02-28 Completed University of 00:00:00 [facility] TDAP 2017-02-28 Completed University of 00:00:00 [facility] TDAP 2017-02-28 Completed University of 00:00:00 [facility] TDAP 2017-02-28 Completed University of 00:00:00 [facility] TDAP 2017-02-28 Completed University of 00:00:00 [facility] TDAP 2017-02-28 Completed University of 00:00:00 [facility] TDAP 2017-02-28 Completed [facility] 00:00:00 [facility] TDAP 2017-02-28 Completed [facility] of 00:00:00 [facility] TDAP 2017-02-28 Completed [facility] 00:00:00 [facility] TDAP 2017-02-28 Completed [facility] 00:00:00 [facility] TDAP 2017-02-28 Completed [facility] 00:00:00 [facility] TDAP 2017-02-28 Completed [facility] of 00:00:00 [facility] TDAP 2017-02-28 Completed [facility] of 00:00:00 [facility] TDAP 2017-02-28 Completed [facility] 00:00:00 [facility] TDAP 2017-02-28 Completed [facility] of 00:00:00 [facility] TDAP 2017-02-28 Completed [facility] of 00:00:00 [facility] TDAP 2017-02-28 Completed [facility] 00:00:00 [facility] TDAP 2017-02-28 Completed [facility] 00:00:00 [facility] TDAP 2017-02-28 Completed [facility] of 00:00:00 [facility] TDAP 2017-02-28 Completed [facility] 00:00:00 [facility] TDAP 2017-02-28 Completed [facility] 00:00:00 [facility] TDAP 2017-02-28 Completed [facility] of 00:00:00 [facility] TDAP 2017-02-28 Completed University of 00:00:00 [facility] TDAP 2017-02-28 Completed [facility] 00:00:00 [facility] TDAP 2017-02-28 Completed [facility] of 00:00:00 [facility] TDAP 2017-02-28 Completed [facility] of 00:00:00 [facility] TDAP 2017-02-28 Completed [facility] of 00:00:00 [facility] TDAP 2017-02-28 Completed [facility] of 00:00:00 [facility] TDAP 2017-02-28 Completed [facility] of 00:00:00 [facility] TDAP 2017-02-28 Completed [facility] of 00:00:00 [facility] TDAP 2017-02-28 Completed [facility] of 00:00:00 [facility] TDAP 2017-02-28 Completed [facility] of 00:00:00 [facility] TDAP 2017-02-28 Completed [facility] of 00:00:00 [facility] TDAP 2012-08-26 Completed [facility] of 00:00:00 [facility] TDAP 2012-08-26 Completed [facility] of 00:00:00 [facility] TDAP 2012-08-26 Completed [facility] of 00:00:00 [facility] TDAP 2012-08-26 Completed [facility] of 00:00:00 [facility] TDAP 2012-08-26 Completed [facility] 00:00:00 [facility] TDAP 2012-08-26 Completed [facility] 00:00:00 [facility] TDAP 2012-08-26 Completed [facility] of 00:00:00 [facility] TDAP 2012-08-26 Completed [facility] of 00:00:00 [facility] TDAP 2012-08-26 Completed [facility] of 00:00:00 [facility] TDAP 2012-08-26 Completed [facility] 00:00:00 [facility] TDAP 2012-08-26 Completed [facility] 00:00:00 [facility] TDAP 2012-08-26 Completed [facility] 00:00:00 [facility] TDAP 2012-08-26 Completed [facility] 00:00:00 [facility] TDAP 2012-08-26 Completed [facility] 00:00:00 [facility] TDAP 2012-08-26 Completed [facility] 00:00:00 [facility] TDAP 2012-08-26 Completed [facility] 00:00:00 [facility] TDAP 2012-08-26 Completed [facility] 00:00:00 [facility] TDAP 2012-08-26 Completed [facility] 00:00:00 [facility] TDAP 2012-08-26 Completed [facility] 00:00:00 [facility] TDAP 2012-08-26 Completed [facility] 00:00:00 [facility] TDAP 2012-08-26 Completed [facility] 00:00:00 [facility] TDAP 2012-08-26 Completed [facility] 00:00:00 [facility] TDAP 2012-08-26 Completed [facility] 00:00:00 [facility] TDAP 2012-08-26 Completed [facility] 00:00:00 [facility] TDAP 2012-08-26 Completed [facility] 00:00:00 [facility] TDAP 2012-08-26 Completed [facility] 00:00:00 [facility] TDAP 2012-08-26 Completed [facility] 00:00:00 [facility] TDAP 2012-08-26 Completed [facility] 00:00:00 [facility] TDAP 2012-08-26 Completed [facility] 00:00:00 [facility] TDAP 2012-08-26 Completed [facility] 00:00:00 [facility] TDAP 2012-08-26 Completed [facility] 00:00:00 [facility] TDAP 2012-08-26 Completed [facility] 00:00:00 [facility] TDAP 2012-08-26 Completed [facility] 00:00:00 [facility] TDAP 2012-08-26 Completed [facility] 00:00:00 [facility] TDAP 2012-08-26 Completed [facility] 00:00:00 [facility] TDAP 2012-08-26 Completed [facility] 00:00:00 [facility] TDAP 2012-08-26 Completed [facility] 00:00:00 [facility] TDAP 2012-08-26 Completed [facility] 00:00:00 [facility] TDAP 2012-08-26 Completed [facility] 00:00:00 [facility] TDAP 2012-08-26 Completed [facility] 00:00:00 [facility] TDAP 2012-08-26 Completed [facility] 00:00:00 [facility] TDAP 2012-08-26 Completed [facility] 00:00:00 [facility] TDAP 2012-08-26 Completed [facility] 00:00:00 [facility] TDAP 2012-08-26 Completed [facility] 00:00:00 [facility] TDAP 2012-08-26 Completed [facility] 00:00:00 [facility] TDAP 2012-08-26 Completed [facility] 00:00:00 [facility] TDAP 2012-08-26 Completed [facility] 00:00:00 [facility] TDAP 2012-08-26 Completed [facility] 00:00:00 [facility] TDAP 2012-08-26 Completed [facility] 00:00:00 [facility] TDAP 2012-08-26 Completed [facility] 00:00:00 [facility] TDAP 2012-08-26 Completed [facility] 00:00:00 [facility] TDAP 2012-08-26 Completed [facility] 00:00:00 [facility] TDAP 2012-08-26 Completed [facility] 00:00:00 [facility] TDAP 2012-08-26 Completed [facility] 00:00:00 [facility] TDAP 2012-08-26 Completed [facility] 00:00:00 [facility] TDAP 2012-08-26 Completed [facility] 00:00:00 [facility] TDAP 2012-08-26 Completed [facility] 00:00:00 [facility] TDAP 2012-08-26 Completed [facility] 00:00:00 [facility] TDAP 2012-08-26 Completed [facility] 00:00:00 [facility] TDAP 2012-08-26 Completed [facility] 00:00:00 [facility] TDAP 2012-08-26 Completed [facility] 00:00:00 [facility] TDAP 2012-08-26 Completed [facility] 00:00:00 [facility] TDAP 2012-08-26 Completed [facility] 00:00:00 [facility] TDAP 2012-08-26 Completed [facility] 00[facility]00:00 [facility] TDAP 2012-08-26 Completed [facility] 00:00:00 [facility] TDAP 2012-08-26 Completed [facility] 00:00:00 [facility] TDAP 2012-08-26 Completed [facility] 00:00:00 [facility] Vital Signs Vital Name Observation Time Observation Value Comments Source Systolic blood 2022-09-13 15:34:00 114 mm[Hg] Univer sity of pressure [facility] Diastolic blood 2022-09-13 15:34:00 79 mm[Hg] Unive rsity of pressure [facility] Heart rate 2022-09-13 15:34:00 78 /min [facility] Body weight 2022-09-13 15:34:00 102.83 kg [facility] BMI 2022-09-13 15:34:00 38.91 kg/m2 [facility] Oxygen saturation in 2022-09-13 15:34:00 98 /min University of Arterial blood by [place] [employer] nirmal Pulse oximetry Branch Systolic blood 2022-09-12 15:38:00 123 mm[Hg] Univer sity of pressure [facility] Diastolic blood 2022-09-12 15:38:00 71 mm[Hg] Unive rsity of pressure [facility] Heart rate 2022-09-12 15:38:00 70 /min Universi [facility] Body temperature 2022-09-12 15:38:00 36.94 [place] Univ ersity of [facility] Respiratory rate 2022-09-12 15:38:00 16 /min Univ ersity of [facility] Body height 2022-09-12 15:38:00 162.6 cm [facility] Body weight 2022-09-12 15:38:00 102.059 kg [facility] BMI 2022-09-12 15:38:00 38.62 kg/m2 [facility] Oxygen saturation in 2022-09-12 15:38:00 98 /min University of Arterial blood by [employer] nirmal Pulse oximetry Branch Systolic blood 2022-08-21 15:34:00 123 mm[Hg] Univer sity of pressure [facility] Diastolic blood 2022-08-21 15:34:00 85 mm[Hg] Unive rsity of pressure [facility] Heart rate 2022-08-21 15:34:00 70 /min Universi ty of [facility] Body height 2022-08-21 15:34:00 162.6 cm [facility] [place] [facility] [place] Body weight 2022-08-21 15:34:00 100.699 kg Universi ty of [facility] BMI 2022-08-21 15:34:00 38.11 kg/m2 Universi ty of [facility] Systolic blood 2022-08-16 19:15:00 135 mm[Hg] Univer sity of pressure [facility] Diastolic blood 2022-08-16 19:15:00 96 mm[Hg] Unive rsity of pressure [facility] Heart rate 2022-08-16 19:15:00 74 /min Universi ty of [facility] Respiratory rate 2022-08-16 19:15:00 20 /min Univ ersity of [facility] Body height 2022-08-16 19:15:00 162.6 cm Universi ty of [facility] Body weight 2022-08-16 19:15:00 99.791 kg [facility] BMI 2022-08-16 19:15:00 37.76 kg/m2 Universi ty of [facility] Oxygen saturation in 2022-08-16 19:15:00 98 /min University of Arterial blood by [facility] Pulse oximetry Branch Systolic blood 2022-08-15 17:30:00 114 mm[Hg] Univer sity of pressure [facility] Diastolic blood 2022-08-15 17:30:00 79 mm[Hg] Unive rsity of pressure [facility] Heart rate 2022-08-15 17:30:00 81 /min Universi ty of [facility] Body temperature 2022-08-15 17:30:00 37 [place] Univ ersity of [facility] Respiratory rate 2022-08-15 17:30:00 18 /min Univ ersity of [facility] Body height 2022-08-15 17:30:00 162.6 cm Universi ty of [facility] Body weight 2022-08-15 17:30:00 99.791 kg Universi ty of [facility] BMI 2022-08-15 17:30:00 37.76 kg/m2 Universi ty of [facility] Systolic blood 2022-08-02 19:33:00 132 mm[Hg] Univer sity of pressure [facility] Diastolic blood 2022-08-02 19:33:00 90 mm[Hg] Unive rsity of pressure [facility] Heart rate 2022-08-02 19:33:00 73 /min [facility] Body temperature 2022-08-02 19:33:00 36.61 [place] Univ ersity of [facility] Respiratory rate 2022-08-02 19:33:00 18 /min Univ ersity of [facility] Body height 2022-08-02 19:33:00 162.6 cm [facility] Body weight 2022-08-02 19:33:00 97.977 kg [facility] BMI 2022-08-02 19:33:00 37.08 kg/m2 [facility]i ty of [facility] Systolic blood 2022-07-24 15:18:00 130 mm[Hg] Univer sity of pressure [facility] Diastolic blood 2022-07-24 15:18:00 86 mm[Hg] Unive rsity of pressure [facility] Heart rate 2022-07-24 15:18:00 73 /min [facility] Body height 2022-07-24 15:18:00 162.6 cm [facility] Body weight 2022-07-24 15:18:00 100.245 kg [facility] [place] [facility] [place] BMI 2022-07-24 15:18:00 37.93 kg/m2 [facility]i ty of [facility] Oxygen saturation in 2022-07-24 15:18:00 98 /min University of Arterial blood by [facility] Pulse oximetry Branch Systolic blood 2022-07-18 16:04:00 128 mm[Hg] Univer sity of pressure [facility] Diastolic blood 2022-07-18 16:04:00 86 mm[Hg] Unive rsity of pressure [facility] Heart rate 2022-07-18 16:04:00 83 /min [facility] Body height 2022-07-18 16:04:00 162.6 cm [facility] Body weight 2022-07-18 16:04:00 97.523 kg [facility] BMI 2022-07-18 16:04:00 36.90 kg/m2 [facility] Oxygen saturation in 2022-07-18 16:04:00 100 /min [facility] by [place] [facility] Systolic blood 2022-07-17 17:07:00 122 mm[Hg] Univer sity of pressure [facility] Diastolic blood 2022-07-17 17:07:00 90 mm[Hg] Unive rsity of pressure [facility] Heart rate 2022-07-17 17:07:00 74 /min [facility] Body temperature 2022-07-17 17:07:00 36.72 [place] Univ [facility] Respiratory rate 2022-07-17 17:07:00 16 /min Univ ers[facility] of [facility] Body height 2022-07-17 17:07:00 162.6 cm [facility] Body weight 2022-07-17 17:07:00 97.569 kg [facility] BMI 2022-07-17 17:07:00 36.92 kg/m2 [facility] Oxygen saturation in 2022-07-17 17:07:00 98 /min University of Arterial blood by [place] [employer] nirm[facility] Pulse oxim[facility] Branch Systolic blood 2022-06-30 21:20:00 101 mm[Hg] Univer sity of pressure [facility] Diastolic blood 2022-06-30 21:20:00 70 mm[Hg] Unive rsity of pressure [facility] Heart rate 2022-06-30 21:20:00 76 /min [facility] Respiratory rate 2022-06-30 21:10:00 18 /min Univ ers[facility] of [facility] Body temperature 2022-06-30 20:27:00 36.67 [place] [facility] Body height 2022-06-30 20:27:00 162.6 cm [facility] Body weight 2022-06-30 20:27:00 90.719 kg [facility] BMI 2022-06-30 20:27:00 34.33 kg/m2 [facility] Oxygen saturation in 2022-06-30 20:27:00 95 /min University of Arterial blood by [place] [employer] nirm[facility] Pulse oxim[facility] Branch Systolic blood 2022-06-20 16:23:00 117 mm[Hg] Univer sity of pressure [facility] Diastolic blood 2022-06-20 16:23:00 77 mm[Hg] Unive rsity of pressure [facility] Heart rate 2022-06-20 16:23:00 87 /min [facility] Body temperature 2022-06-20 16:23:00 37 [place] [facility] Respiratory rate 2022-06-20 16:23:00 18 /min Univ ers[facility] Body height 2022-06-20 16:23:00 162.6 cm [facility] Body weight 2022-06-20 16:23:00 95.709 kg [facility] BMI 2022-06-20 16:23:00 36.22 kg/m2 [facility] Body weight 2022-06-09 15:45:00 91.173 kg [facility] BMI 2022-06-09 15:45:00 34.50 kg/m2 [facility] Systolic blood 2022-05-16 15:31:00 133 mm[Hg] Univer sity of pressure [facility] Diastolic blood 2022-05-16 15:31:00 87 mm[Hg] Unive rsity of [facility] Heart rate 2022-05-16 15:31:00 87 /min [facility] Respiratory rate 2022-05-16 15:31:00 12 /min [facility] [place] [facility] [place] Body height 2022-05-16 15:31:00 162.6 cm [facility] Body weight 2022-05-16 15:31:00 91.173 kg [facility] BMI 2022-05-16 15:31:00 34.50 kg/m2 [facility] Oxygen saturation in 2022-05-16 15:31:00 99 /min [facility] Arterial blood by [facility] Pulse oximetry Branch Procedures Procedure Date / Time Performing Clinician Source Performed [place] TIME OR 2022-09-15 17:38:14 Curtis Morley [facility] [place] (NON-REPORT[facility] CONSENT/REFUSAL FOR 2022-09-12 15:19:35 Doctor Unassigned, [facility] [place] DI[facility] TREAT[facility] [place] [facility] MISCELLANEOUS SEND OUT 2022-08-21 16:05:00 Ez Palacio U [facility] TEST Medical Branch DIAGNOSTIC MANAGEMENT 2022-08-21 16:05:00 [facility] COAGUL[facility] [place] EVALUATION ANTIPHOSPHOLIPID ANTIBODY 2022-08-21 16:05:00 Cristi Palacio [facility] TESTS AND EVALUATION Medical Bra nc ANTIPHOSPHOLIPID ANTIBODY 2022-08-21 16:05:00 Cristi Palacio [facility] EVALUATION-LT BLUE Medical Bran h ANTICARDIOLIPIN ANTIBODIES 2022-08-21 16:05:00 Acacia Palacio [facility] ANTI-B2 GLYCOPROTEIN I AB 2022-08-21 16:05:00 Cristi Palacio [facility] ANTIPHOSPHOLIPID ANTIBODY 2022-08-21 16:05:00 Cristi Palacio [facility] EVALUATION-SST Medical Branch MR LUMBAR SPINE WO 2022-08-16 20:31:57 Skyler Ferrari [facility] CONTRAST [facility] US PELVIS COMPLETE WITH 2022-07-26 15:39:56 Ez Palacio [facility] TRANSVAGINAL [facility] POCT TEST 2022-07-17 00:00:00 Ez Palacio [facility] [place] TIME OR 2022-06-30 21:00:00 Curtis Morley [facility] (NON-REPORTABLE) [facility] POCT TEST 2022-06-30 20:15:00 Curtis Morley [place] [facility] POCT TEST 2022-06-20 00:00:00 AdArgentina wetzel [facility] DISCLOSURE AND CONSENT, 2022-06-16 05:01:00 Doctor Unassedandre, Ismael [facility] MEDICAL AND SURGICAL [place] [facility] PROCEDURES Encounters Start End Encounter Admission Attending Care Care Encounter Source Date/Time Date/Time Type Type Clinicians Facility Department ID 2021-11-08 Outpatient Annalee MICHEL [facility] [id number] Univers 15:18:20 AZALIA guzmán [facility] 2021-06-13 Emergency [facility] [id number] Univers 16:13:46 ity [facility] 2021-06-12 Outpatient MARILU, [facility] [id number] Univers 19:13:39 AZALIA camryn [facility] 2021-06-12 Outpatient PEYMAN [facility] [id number] Univers 02:02:49 CURTIS [facility] 2021-06-10 Outpatient R SOHEILA DIAZRIEL [facility] GIE [id number] Univers 22:07:19 NORBERT DIAZ i [facility] 2023-02-12 2023-02-12 Outpatient R RICHA DOMINGUEZ [facility] [id number] Univers 09:30:00 09:30:00 [facility] 2022-12-11 2022-12-11 Outpatient R RICHA DOMINGUEZ [facility] [id number] Univers 10:00:00 10:00:00 RICHA DOMINGUEZ [facility] 2022-09-21 2022-09-21 Outpatient R DANA [facility] [id number] Univers 08:00:00 08:00:00 , OMID [facility] 2022-09-19 2022-09-19 Nurse Carolyn HERRERA [id number] Univers 00:00:00 00:00:00 Triage JOLANTA Nava [id number] ity of [facility] [id number] [place] [id number] [place] [address] Branch 2022-09-18 2022-09-[address] [facility] [id number] Univers 10:00:00 10:30:00 ne Visit Beth WHEELER [id number] ity [facility] [id number] [facility] [id number] [address] DIABETES [facility]IC 2022-09-18 2022-09-18 Outpatient R VERO [facility] [id number] Univers 10:00:00 10:00:00 BETH vogel [facility] 2022-09-18 2022-09-18 Telephone [facility] [id number] Univers 00:00:00 00:00:00 Curtis WHEELER [id number] ity of [id number] [place] [id number] [facility] AND [facility] [address] [place] [facility] 2022-09-15 2022-09-15 [facility] [id number] Univers 10:53:55 23:59:00 Encounter Curtis WHEELER [id number] [place]y [id number] [id number] [facility] AND [facility]ARD [address] [place] [facility] 2022-09-15 2022-09-15 Outpatient R PEYMAN [facility] [id number] Univers 10:53:55 23:59:00 CURTIS guzmán [facility] 2022-09-13 2022-09-13 Outpatient R RICHA DOMINGUEZ [facility] [id number] Univers 09:30:00 10:35:03 RICHA DOMINGUEZ [facility] 2022-09-13 2022-09-13 Office Keyla [facility] [id number] Univers 09:30:00 10:35:03 Visit HEALTH [id number] it y of [place] 4.2.7.2.686 [place] as KEITH?BLEA [id number] [address] MEDICAL OFFICE BUILDING 2022-09-13 2022-09-13 Telephone [facility] [id number] Univers 00:00:00 00:00:00 Ez [place] [id number] it y [id number] [id number] [facility] 134 Branch 2022-09-13 2022-09-13 Telephone [facility] [id number] Univers 00:00:00 00:00:00 Curtis WHEEELR [id number] ity [place] [id number] [facility] AND [address] DIABETES CLINIC 2022-09-12 2022-09-12 Office Aayush [facility] [id number] Univers 09:30:00 10:14:05 Visit [place] CESIA [id number] i [facility] [id number] [id number] [address] 2022-09-12 2022-09-12 Outpatient R AAYUSH [facility] [id number] Univers 09:30:00 10:14:05 ARGENTINA guzmán [facility] 2022-09-12 2022-09-12 Orders Doctor JAVIER [id number] Univers 00:00:00 00:00:00 Only Unassigned, JOLANTA [id number] ity of [place] [facility] [id number] [place] [id number] [address] 2022-09-06 2022-09-06 Patient Shabnamade [facility] [id number] Univers 00:00:00 00:00:00 Secure Msg Ez [place] [id number] [id number] [id number] [address] 2022-08-29 2022-08-29 Outpatient R PEYMAN [facility] [id number] Univers 10:30:00 10:30:00 CURTIS guzmán [facility] 2022-08-21 2022-08-21 Building Contractor Lab, Ang - Ish [facility] 1.2.840.1 14 [id number] Univers 10:15:00 10:15:00 Visit Bia Chamorro 350.1.13.10 ity of [place] 4.2.7.2.686 [place] as KEITH?BLEA [phone] Nh krystal ALEJANDRA [address] [place] [address] MEDICAL OFFICE [facility] 2022-08-21 2022-08-21 Outpatient Annalee CHAMORRO [facility] [id number] Univers 10:15:00 10:09:08 BIA guzmán [facility] 2022-08-21 2022-08-[address] [facility] 1.2.840.114 [id number] Univers 09:30:00 09:56:40 Visit Bia [facility] 350.1.13.10 it y of [place] 4.2.7.2.686 [place] KEITH?BLEA [phone] Nh krystal MCKEON [address] MEDICAL OFFICE BUILDING 2022-08-17 2022-08-17 Outpatient R [facility] [id number] Univers 13:00:00 13:00:00 ity of [facility] 2022-08-17 2022-08-17 [facility] 1.2.969.146 [id number] Univers 00:00:00 00:00:00 Radha FAMILY 350.1.13.10 it y of MEDICINE 4.2.7.2.686 [place] CL[place]IC - [id number] [address] 2022-08-16 2022-08-16 Outpatient R SKYLER FERRARI [facility] [id number] Univers 12:39:58 23:59:00 [facility] 2022-08-16 2022-08-16 [facility] 1.2.289.823 [id number] Univers 12:39:58 23:59:00 Encounter [facility] 350.1.13.10 ity of [facility] [place].2.7.2.[place] [phone] Nh krystal RAMIREZ 804 [facility] 2022-08-16 2022-08-[address] [facility] 1.2.840.114 [id number] Univers 00:00:00 00:00:00 Radha FAMILY 350.1.13.10 it y of MEDICINE 4.2.7.2.686 [place] CL[place]IC - [id number] [address] 2022-08-15 2022-08-15 Outpatient R EZ PALACIO [facility] B [id number] Univers 11:30:00 11:42:13 EZ PALACIO camryn [facility] 2022-08-15 2022-08-15 Office Bruce [facility] 1.2.840.114 [id number] Univers 11:30:00 11:42:13 Visit Ez CALLAWAY 350.1.13.10 it y of [place] [id number] [address] 2022-08-15 2022-08-15 Telephone [facility] 1.2.840.[id number] [facility] 00:00:00 00:00:00 Ez CALLAWAY 350.1.13.10 it y of [place]2.[place] [id number] [address] 2022-08-03 2022-08-03 Building Contractor Lab, Ang - Db [facility] 1.2.840.[id number] [facility] 12:45:00 13:00:00 Visit Ez Palacio 350.1.13.1 0 ity of [place] 4.2.7.2.686 [place] as KEITH?BLEA [id number] [address] MEDICAL OFFICE BUILDING 2022-08-03 2022-08-03 Outpatient R EZ PALACIO [facility] B [id number] Univers 12:45:00 12:45:00 KAYLAEZ ROBLEDO [facility] 2022-08-02 2022-08-02 Outpatient R ZE PALACIO [facility] B [id number] Univers 13:00:00 13:55:50 KAYLAEZ ROBLEDO [facility] 2022-08-02 2022-08-02 Office [facility] 1.2.840.114 [id number] Univers 13:00:00 13:55:50 Visit Ez CALLAWAY 350.1.13.10 it y of [place] [id number] [address] 2022-07-26 2022-07-26 Outpatient R EZ PALACIO [facility] B [id number] Univers 08:50:28 23:59:00 [facility] AG[facility]A [facility] 2022-07-26 2022-07-26 [facility] 1.2.840.114 [id number] Univers 08:50:28 23:59:00 Encounter Ez MACDONALD 350.1.13.10 ity of [place] 4.2.7.2.[address] [facility] [id number] [facility] [address] 2022-07-26 2022-07-[address] [facility] 1.2.840.114 [id number] Univers 00:00:00 00:00:00 [facility] 350.1.13.10 ity of [place] 4.2.7.2.686 [place] KEITH?BLEA [id number] [address] OFFICE [facility] 2022-07-24 2022-07-24 Outpatient SKYLER DOUGHERTY [facility] [id number] Univers 09:20:00 10:09:23 SKYLER FERRARI [facility] 2022-07-24 2022-07-[address] [facility] 1.2.840.114 [id number] Univers 09:20:00 10:09:23 Visit [facility] 350.1.13.10 ity of [place] 4.2.7.2.686 [place] KEITH?BLEA [id number] [address] OFFICE [facility] 2022-07-19 2022-07-[address] [facility] ZAMBRANO 1.2.840.11 [id number] Univers 00:00:00 00:00:00 Ez CALLAWAY 350.1.13.10 it y of WOMEN'S 4.2.7.2.686 [facility] [id number] [facility] [address] 2022-07-18 2022-07-18 Outpatient Annalee PHAM [facility] [id number] Univers 10:00:00 11:06:06 BETH vogel [facility] 2022-07-18 2022-07-[address] [facility] 1.2.840.114 [id number] Univers 10:00:00 11:06:06 Visit Beth WHEELER 350.1.13.10 ity of [place] 4.2.7.2.686 [facility] [id number] [facility] AND [address] DIABETES CLINIC 2022-07-17 2022-07-17 Outpatient R KAYLAEZ ROBLEDO [facility] B [id number] Univers 10:45:00 11:30:28 SHABNAMADE ANSHULSEVERINO ity [facility] 2022-07-17 2022-07-17 Office ErrolFormerly [facility] 1.2.840.114 [id number] Univers 10:45:00 11:30:28 Visit Ez CESIA 350.1.13.[address] [facility] 4.2.7.2.686 [facility] [phone] [place] [address] [address] 2022-07-13 2022-07-13 Telephone [facility] 1.2.276.645 [id number] Univers 00:00:00 00:00:00 Curtis WHEELER 350.1.13.10 ity of [place] 4.2.7.2.686 [facility] [id number] [address] DIABETES CLINIC 2022-07-11 2022-07-11 Telephone [facility] 1.2.013.039 [id number] Univers 00:00:00 00:00:00 Curtis WHEELER 350.1.13.10 ity of [place] 4.2.7.2.686 [facility] [id number] [address] DIABETES CLINIC 2022-07-04 2022-07-[address] [facility] 1.2.840.114 [id number] Univers 00:00:00 00:00:00 Radha SWEENEY 350.1.13.10 it y of MEDICINE 4.2.7.2.686 [facility] CLINIC - [id number] [address] 2022-07-03 2022-07-03 Outpatient R JORY [facility] [id number] Univers 11:18:25 23:59:00 CAMILO ity of [facility] 2022-07-03 2022-07-03 Telephone [facility] 1.2.098.743 [id number] Univers 00:00:00 00:00:00 Curtis WHEELER 350.1.13.10 ity of [place]2.7.2.[place] [id number] [facility] AND STEWARD [address] DIABETES CLINIC 2022-06-30 2022-06-30 [facility] 1.2.840.114 [id number] Univers 14:31:25 23:59:00 Encounter Curtis WHEELER 350.1.13.10 ity of [place].2.7.2.686 [place] [id number] [facility] AND STEWARD [address] DIABETES CLINIC 2022-06-30 2022-06-30 Office [facility] 1.2.840.114 [id number] Univers 14:00:00 14:30:00 Visit Curtis WHEELER 350.1.13.10 ity of [place] 4.2.7.2.[place] [id number] [facility] AND [place]EW[address] DIABETES CLINIC 2022-06-30 2022-06-30 Outpatient R [facility] [id number] Univers 14:00:00 14:00:00 CURTIS ity of [facility] 2022-06-28 2022-06-28 Telephone [facility] 1.2.230.888 [id number] Univers 00:00:00 00:00:00 Curtis WHEELER 350.1.13.10 ity of [place].2.7.2.[place] [id number] [facility] AND [address] DIABETES CLINIC 2022-06-27 2022-06-[address] 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, Ang - Db [facility] 1.2.840.1 14 [id number] Univers 11:45:00 12:00:00 Visit Argentina Looney 350.1.13.10 ity of [place] 4.2.7.2.686 [place] KEITH?BLEA [phone] Nh krystal MCKEON [address] [place] [address] MEDICAL OFFICE BUILDING 2022-06-20 2022-06-20 Outpatient R AD, [facility] [id number] Univers 10:00:00 10:51:04 ARGENTINA guzmán [facility] 2022-06-20 2022-06-20 Office Adum, [facility] 1.2.273.404 [id number] Univers 10:00:00 10:51:04 Visit Argentina CALLAWAY 350.1.13.10 i ty of [place] 4.2.7.2.[place] [id number] [facility] [address] 2022-06-16 2022-06-16 Orders Doctor JAVIER 1.2.840.114 [id number] Univers 00:00:00 00:00:00 Only Unassigned, JOLANTA 350.1.13.10 ity of [place] [facility] 4.2.7.2.686 [place] as [id number] [facility] [address] 2022-06-09 2022-06-09 Outpatient R [facility]AULTMAN [facility] [id number] Univers 10:15:00 11:34:49 CAMILO guzmán [facility] 2022-06-09 2022-06-09 Office Formerly [facility] 1.2.036.225 [id number] Univers 10:15:00 11:34:49 Visit Camilo Machuca 350.1.13.10 i ty of [place] 4.2.7.2.686 [place] as BANK [id number] [facility] BLDG. [address] 2022-05-22 2022-05-22 Refill Doctor [facility] 1.2.840.114 [id number] Univers 00:00:00 00:00:00 Unassigned, FAMILY 350.1.13.10 ity of [place] MEDICINE 4.2.7.2.686 [place] as CLINIC - [id number] [address] 2022-05-21 2022-05-21 Refill Amos [facility] 1.2.840.114 [id number] Univers 00:00:00 00:00:00 Radha FAMILY 350.1.13.10 it y of MEDICINE 4.2.7.2.686 [place] CLINIC - [id number] [address] 2022-05-17 2022-05-17 Telephone [facility] 1.2.134.362 [id number] Univers 00:00:00 00:00:00 Curtis RAHMANPEC 350.1.13.10 ity of [place]2.[place].2.[place] [id number] [facility] AND [address] DIABETES CLINIC 2022-05-17 2022-05-17 Telephone [facility] 1.2.106.434 [id number] Univers 00:00:00 00:00:00 Curtis RAHMANPEC 350.1.13.10 ity of [place]2.[place].2.[place] [id number] [facility] AND [address] DIABETES CLINIC 2022-05-17 2022-05-17 Telephone [facility] 1.2.832.476 [id number] Univers 00:00:00 00:00:00 Radha SWEENEY 350.1.13.10 it y of MEDICINE 4.2.7.2.686 [place] CLINIC - [id number] [address] 2022-05-16 2022-05-16 Outpatient [facility] [id number] Univers 10:00:00 11:13:48 CURTIS itcamryn [facility] 2022-05-16 2022-05-16 Office [facility] 1.2.840.114 [id number] Univers 10:00:00 11:13:48 Visit Curtis WHEELER 350.1.13.10 ity of [place]2.[place].2.[place] [id number] [address] DIABETES CLINIC 2022-05-08 2022-05-08 Building Contractor Lab, Anthony Kumar Stew Shane. [facility] 1 .2.840.114 [id number] Univers 09:15:00 09:30:00 Visit TrinidadRadha 350.1.13.10 ity of [place]IC[place] 4.2.7.2.686 [place] CLINIC - [id number] [address] 2022-05-08 2022-05-08 Outpatient [facility] [id number] Univers 09:15:00 09:15:00 RADHA ity of [facility] 2022-05-04 2022-05-04 Telephone [facility] 1.2.708.922 [id number] Univers 00:00:00 00:00:00 Radha SWEENEY 350.1.13.10 it y of MEDICINE 4.2.7.2.686 [facility] as CLINIC - [id number] [address] 2022-05-01 2022-05-01 Solis Morley [facility] 1.2.840.114 [id number] Univers 00:00:00 00:00:00 Curtis RAHMANPEC 350.1.13.10 ity of [place] 4.2.7.2.686 [facility] [place] [id number] [address] DIABETES CLINIC 2022-04-28 2022-04-28 Refjo-[address] Michel[address] [facility] 1.2.840.114 [id number] Univers 00:00:00 00:00:00 Azalia HEALTH 350.1.13.10 it y of CANCER 4.2.7.2.686 [facility] [place] - [id number] [facility] [address] 2022-04-26 2022-04-26 Telephone [facility] 1.2.728.943 [id number] Univers 00:00:00 00:00:00 Radha SWEENEY 350.1.13.10 it y of MEDICINE 4.2.7.2.686 [facility] as CLINIC - [id number] [address] 2022-04-21 2022-04-21 Solis Michel [facility] 1.2.840.114 [id number] Univers 00:00:00 00:00:00 Azalia HEALTH 350.1.13.10 it y of CANCER 4.2.7.2.686 [facility] - [id number] [facility] [address] 2022-04-21 2022-04-21 [facility] 1.2.840.114 [id number] Univers 00:00:00 00:00:00 Unassigned, FAMILY 350.1.13.10 ity of [place] MEDICINE 4.2.7.2.686 [place] CLINIC - [id number] [address] 2022-04-21 2022-04-[address] [facility] 1.2.840.114 [id number] Univers 00:00:00 00:00:00 [place] 350.1.13.10 i ty of P[place].2.686 [place] [id number] [address] 2022-04-18 2022-04-18 Telemedici [facility] 1.2.840.114 [id number] Univers 14:00:00 14:30:00 ne Visit Radha SWEENEY 350.1.13.10 i ty of MEDICINE 4.2.7.2.686 [place] CL[place]IC - [id number] [address] 2022-04-18 2022-04-18 Outpatient R [facility] [id number] Univers 14:00:00 14:00:00 [facility] 2022-04-18 2022-04-18 Outpatient R [facility] [id number] Univers 14:00:00 14:00:00 [facility] 2022-04-18 2022-04-18 Outpatient R [facility] [id number] Univers 10:00:00 10:00:00 [facility] 2022-04-17 2022-04-17 Telephone [facility] 1.2.279.948 [id number] Univers 00:00:00 00:00:00 Radha SWEENEY 350.1.13.10 it y of MEDICINE 4.2.7.2.686 [place] CLINIC - [id number] [address] 2022-04-13 2022-04-13 Refill [facility] 1.2.840.114 [id number] Univers 00:00:00 00:00:00 Radha SWEENEY 350.1.13.10 it y of MEDICINE 4.2.7.2.686 [place] CL[place]IC - [id number] [address] 2022-04-05 2022-04-05 Orders Doctor JAVIER 1.2.840.114 [id number] Univers 00:00:00 00:00:00 Only Unassigned, JOLANTA 350.1.13.10 ity of [place] [facility]OSPITAL 4.2.7.2.686 [place] as [id number] [facility] [address] 2022-03-26 2022-03-26 Refill [facility] 1.2.840.114 [id number] Univers 00:00:00 00:00:00 Radha FAMILY 350.1.13.10 it y of MEDICINE 4.2.7.2.686 [place] CL[place]IC - [id number] [address] 2022-03-26 2022-03-26 [facility] 1.2.840.114 [id number] Univers 00:00:00 00:00:00 Azalia HEALTH 350.1.13.10 it y [place] 4.2.7.2.[place] - [id number] [facility] [address] 2022-03-13 2022-03-13 Orders Doctor JAVIER 1.2.840.114 [id number] Univers 00:00:00 00:00:00 Only Unassigned, JOLANTA 350.1.13.10 ity of [place] HOSPITAL 4.2.7.2.686 [place] as [id number] [facility] [address] 2022-03-10 2022-03-10 Telephone [facility] 1.2.863.416 [id number] Univers 00:00:00 00:00:00 Radha FAMILY 350.1.13.10 it y of MEDICINE 4.2.7.2.686 [place] CLINIC - [id number] [address] 2022-03-08 2022-03-08 Telephone [facility] 1.2.037.875 [id number] Univers 00:00:00 00:00:00 Azalia HEALTH 350.1.13.10 it y of [place] 4.2.7.2.[place] - [id number] [facility] [address] 2022-03-08 2022-03-08 Telephone [facility] 1.2.100.343 [id number] Univers 00:00:00 00:00:00 Radha SWEENEY 350.1.13.10 it y of MEDICINE 4.2.7.2.686 [place] CLINIC - [id number] [address] 2022-03-07 2022-03-07 Out[facility] [id number] Univers 14:00:00 14:00:00 AZALIA guzmán [facility] 2022-03-07 2022-03-07 Telephone [facility] 1.2.377.971 [id number] Univers 00:00:00 00:00:00 Radha FAMILY 350.1.13.10 it y of MEDICINE 4.2.7.2.686 [place] CLINIC - [id number] [address] 2022-03-05 2022-03-05 [facility] 1.2.840.114 [id number] Univers 00:00:00 00:00:00 Radha SWEENEY 350.1.13.10 it y of MEDICINE 4.2.7.2.686 [place] CL[place]IC - [id number] [address] 2022-02-28 2022-02-28 Patient Doctor [facility] 1.2.840.114 [id number] Univers 00:00:00 00:00:00 Secure Msg Unassigned, FAMILY 350.1.13.10 ity of [place] MEDICINE 4.2.7.2.686 [place] CLINIC - 174.3234134 [address] 2022-02-13 2022-02-13 [facility] 1.2.840.114 [id number] Univers 00:00:00 00:00:00 Radha SWEENEY 350.1.13.10 it y of MEDICINE 4.2.7.2.686 [place] CLINIC - [id number] [address] 2022-02-10 2022-02-10 Telephone [facility] 1.2.254.055 [id number] Univers 00:00:00 00:00:00 Radha FAMILY 350.1.13.10 it y of MEDICINE 4.2.7.2.686 [place] CL[place]IC - [id number] [address] 2022-02-10 2022-02-10 [facility] 1.2.840.114 [id number] Univers 00:00:00 00:00:00 Radha FAMILY 350.1.13.10 it y of MEDICINE 4.2.7.2.686 [place] CLINIC - [id number] [address] 2022-02-09 2022-02-09 [facility] 1.2.840.114 [id number] Univers 00:00:00 00:00:00 Radha SWEENEY 350.1.13.10 it y of MEDICINE 4.2.7.2.686 [place] CLINIC - [id number] [address] 2022-02-09 2022-02-09 [facility] 1.2.840.114 [id number] Univers 00:00:00 00:00:00 [facility] 350.1.13.10 it y of [place]2.[place] - [id number] [address] 2022-01-24 2022-01-[address] [facility] 1.2.840.114 [id number] Univers 14:00:00 14:15:00 Visit [facility] 350.1.13.10 it y of [place]2.[place] - [id number] [address] 2022-01-24 2022-01-24 Outpatient Annalee MICHEL [facility] [id number] Univers 14:00:00 14:00:00 [facility] 2022-01-24 2022-01-24 Outpatient Annalee MICHEL [facility] [id number] Univers 14:00:00 14:00:00 [facility] 2022-01-24 2022-01-24 Outpatient Annalee MICHEL [facility] [id number] Univers 14:00:00 14:00:00 [facility] 2022-01-24 2022-01-24 Outpatient Annalee MICHEL [facility] [id number] Univers 14:00:00 14:00:00 AZALIA ramirez [facility] 2022-01-24 2022-01-24 Patient [facility] 1.2.840.114 [id number] Univers 00:00:00 00:00:00 Secure Msg Radha SWEENEY 350.1.13.10 ity of MEDICINE 4.2.7.2.686 [place] CL[place]IC - [id number] [address] 2022-01-20 2022-01-20 Telephone [facility] 1.2.717.210 [id number] Univers 00:00:00 00:00:00 Radha SWEENEY 350.1.13.10 it y of MEDICINE 4.2.7.2.686 [place] CL[place]IC - [id number] [address] 2022-01-20 2022-01-20 Telephone [facility] 1.2.532.481 [id number] Univers 00:00:00 00:00:00 Radha SWEENEY 350.1.13.10 it y of MEDICINE 4.2.7.2.686 [place] CLINIC - [id number] [address] 2022-01-16 2022-01-16 Office [facility] 1.2.840.114 [id number] Univers 15:00:00 15:30:00 Visit Radha SWEENEY 350.1.13.10 it y of MEDICINE 4.2.7.2.686 [place] CL[place]IC - [id number] [address] 2022-01-16 2022-01-16 [facility] [id number] Univers 15:00:00 15:00:00 RADHA [facility] 2022-01-16 2022-01-16 Refjo-ann Mendez [facility] 1.2.840.114 [id number] Univers 00:00:00 00:00:00 Catalina SWEENEY 350.1.13.10 ity of MEDICINE 4.2.7.2.686 [place] CLINIC - [id number] [address] 2022-01-04 2022-01-04 Solis Morley [facility] 1.2.840.114 [id number] Univers 00:00:00 00:00:00 Curtis MULTISPEC 350.1.13.10 ity of [place].2.686 [place] 552.5080469 [address] DIABETES CLINIC 2022-01-04 2022-01-[address] [facility] 1.2.840.114 [id number] Univers 00:00:00 00:00:00 Radha SWEENEY 350.1.13.10 it y of MEDICINE 4.2.7.2.686 [place] CL[place]IC - [id number] [address] 2021-12-21 2021-12-[address] [facility] 1.2.477.769 [id number] Univers 00:00:00 00:00:00 Azalia HEALTH 350.1.13.10 it y of CANCER 4.2.7.2.686 [facility] - [id number] [address] 2021-12-20 2021-12-20 Outpatient [facility] [id number] Univers 14:30:00 14:30:00 [facility] 2021-12-07 2021-12-07 [facility] 1.2.840.114 [id number] Univers 00:00:00 00:00:00 Radha SWEENEY 350.1.13.10 it y of MEDICINE 4.2.7.2.686 [place] CL[place]IC - 346.0310210 [address] 2021-11-29 2021-11-29 [facility] 1.2.840.114 [id number] Univers 00:00:00 00:00:00 Secure Msg Radha [place] [id number] ity of MEDICINE 4.2.7.2.686 [place] [facility] - [phone] [address] 2021-11-22 2021-11-[address] [facility] 1.2.840.114 [id number] Univers 16:00:00 16:15:00 ne Visit [place] HEALTH 350.1.13.10 i ty of CANCER 4.2.7.2.686 [facility] [place] - [phone] [facility] [address] 2021-11-22 2021-11-22 Outpatient R MARILU [facility] [id number] Univers 16:00:00 16:00:00 AZALIA guzmán [facility] 2021-11-22 2021-11-22 Outpatient Annalee MICHEL [facility] [id number] Univers 16:00:00 16:00:00 AZALIA camryn [facility] 2021-11-22 2021-11-[address] [facility] [id number] Univers 00:00:00 00:00:00 Radha FAMILY 350.1.13.10 it y of MEDICINE 4.2.7.2.686 [facility] as [facility] - [phone] [address] 2021-11-22 2021-11-[address] [facility] [id number] Univers 00:00:00 00:00:00 [place] HEALTH [id number] it y of CANCER 4.2.7.2.686 [facility] [place] - [phone] [facility] [address] 2021-11-20 2021-11-20 Telephone [facility] [id number] Univers 00:00:00 00:00:00 [place] HEALTH 350.1.13.10 it y of CANCER 4.2.7.2.686 [facility] [place] - [phone] [address] 2021-11-20 2021-11-20 [facility] [id number] Univers 00:00:00 00:00:00 [place] HEALTH [id number] it y of CANCER 4.2.7.2.686 [facility] [place] - [phone] [place] [address] [address] 2021-11-20 2021-11-20 Telephone MARCOS Berry [id number] Univers 00:00:00 00:00:00 Byron STVOER 350.1.13.10 it y of [facility] 4.2.7.2.686 [place] as [phone] [facility] [address] 2021-11-15 2021-11-15 Outpatient R JORY [facility] [id number] Univers 08:45:00 08:45:00 CAMILO ramirez [facility] 2021-11-15 2021-11-15 Outpatient R JORY [facility] [id number] Univers 08:45:00 08:45:00 CAMILO guzmán [facility] 2021-11-14 2021-11-14 Outpatient R MARILU [facility] [id number] Univers 10:46:00 15:24:00 AZALIA guzmán [facility] 2021-11-14 2021-11-14 Hospital Marilu [facility] 1.2.840.114 [id number] Univers 10:46:00 15:24:00 Encounter [place] HEALTH 350.1.13.10 ity of LEAGUE 4.2.7.2.686 [facility] [phone] [address] ([facility]) 2021-11-14 2021-11-14 Surgery Marilu [facility] 1.2.840.114 [id number] Univers 11:43:00 13:33:00 [place] SPECIALTY 350.1.13.10 ity of CARE 4.2.7.2.686 [facility] AT [phone] Nh krystal [place] [address] [place] [address] 2021-11-11 2021-11-11 Laboratory Only, Adc Test [facility] 1.2.840. 114 [id number] Univers 14:00:00 14:15:00 Only Azalia Michel 350.1.13.10 ity of [place] 4.2.7.2.686 [facility] [id number] [facility] [address] 2021-11-11 2021-11-11 Outpatient Annalee MICHEL [facility] [id number] Univers 14:00:00 14:00:00 AZALIA guzmán [facility] 2021-11-08 2021-11-08 Office Marilu [facility] 1.2.840.114 [id number] Univers 14:15:00 14:30:00 Visit Azalia HEALTH 350.1.13.10 it y of CANCER 4.2.7.2.686 [facility] s [place] - [phone] [place] [address] [address] 2021-11-08 2021-11-08 Outpatient Annalee MICHEL [facility] [id number] Univers 14:15:00 14:15:00 AZALIA [facility] 2021-11-08 2021-11-[address] [facility] 1.2.840.114 [id number] Univers 00:00:00 00:00:00 Radha SWEENEY 350.1.13.10 it y of MEDICINE 4.2.7.2.686 [place] [facility] - [id number] [address] 2021-11-04 2021-11-04 Outpatient Annalee MICHEL [facility] [id number] Univers 11:00:00 11:00:00 AZALIA [facility] 2021-10-26 2021-10-26 Patient Peyman [facility] 1.2.840.114 [id number] Univers 00:00:00 00:00:00 Secure Msradha WHEELER 350.1.13.10 [facility] Ohionishant LUCAS 4.2.7.2.686 [facility] [place] [phone] [address] [facility]AB[facility]ES CLINIC 2021-10-22 2021-10-[address] [facility] 1.2.840.114 [id number] Univers 00:00:00 00:00:00 Radha SWEENEY 350.1.13.10 it y of MEDICINE 4.2.7.2.686 [place] - [phone] [address] 2021-10-17 2021-10-17 Outpatient Annalee MORLEY [facility] [id number] Univers 09:30:00 09:30:00 CURTIS guzmán [facility] 2021-10-05 2021-10-05 Outpatient SKYLER DOUGHERTY [facility] [id number] Univers 11:30:00 11:30:00 SKYLER FERRARI [facility] 2021-10-05 2021-10-[address] [facility] 1.2.840.114 [id number] Univers 00:00:00 00:00:00 Radha FAMILY 350.1.13.10 it y of MEDICINE 4.2.7.2.686 [place] - [phone] [address] 2021-09-29 2021-09-29 Outpatient Annalee MORLEY [facility] [id number] Univers 08:30:00 08:30:00 CURTIS camryn [facility] 2021-09-29 2021-09-29 Outpatient R PEYMAN [facility] [id number] Univers 08:30:00 08:30:00 CURTIS [facility] 2021-09-29 2021-09-29 Outpatient Annalee MORLEY [facility] [id number] Univers 08:30:00 08:30:00 CURTIS [facility] 2021-09-16 2021-09-16 Outpatient Annalee TRINIDAD [facility] [id number] Univers 14:30:00 14:30:00 RADHA [facility] 2021-09-16 2021-09-16 Outpatient Annalee TRINIDAD [facility] [id number] Univers 14:30:00 14:30:00 RADHA [facility] 2021-09-15 2021-09-[address] [facility] 1.2.840.114 [id number] Univers 00:00:00 00:00:00 Curtis WHEELER 350.1.13.10 [facility] Tess LUCAS 4.2.7.2.686 [phone] [address] [facility] CLINIC 2021-09-06 2021-09-06 Office Amos [facility] 1.2.840.114 [id number] Univers 09:00:00 09:30:00 Visit Radha SWEENEY 350.1.13.10 it y of MEDICINE 4.2.7.2.686 [place] - [phone] [address] 2021-09-06 2021-09-06 Outpatient Annalee TRINIDAD [facility] [id number] Univers 09:00:00 09:00:00 RADHA camryn [facility] 2021-09-06 2021-09-06 Outpatient Annalee TRINIDAD [facility] [id number] Univers 09:00:00 09:00:00 RADHA velezy of [facility] 2021-09-06 2021-09-06 Orders Doctor JAVIER 1.2.840.114 [id number] Univers 00:00:00 00:00:00 Only Unassigned, JOLANTA 350.1.13.10 ity of [place] [facility] 4.2.7.2.686 [place] [phone] [facility] [address] 2021-09-06 2021-09-[address] [facility] 1.2.342.519 [id number] Univers 00:00:00 00:00:00 Curtis WHEELER 350.1.13.10 ity of [place] 4.2.7.2.686 [place] [facility] [id number] [facility] [place] [address] DIABETES CLINIC 2021-09-01 2021-09-01 Refjo-ann TrinidadCHRI[facility] 1.2.840.114 [id number] Univers 00:00:00 00:00:00 Radha SWEENEY 350.1.13.10 it y of MEDICINE 4.2.7.2.686 [place] - [phone] [facility] 311 [facility] 2021-08-10 2021-08-[address] [facility] 1.2.840.114 [id number] Univers 00:00:00 00:00:00 [facility] 350.1.13.10 i ty of PEDIATRIC 4.2.7.2.686 [facility] [phone] [facility] [address] 2021-08-03 2021-08-[address] [facility] 1.2.840.114 [id number] Univers 00:00:00 00:00:00 Radha SWEENEY 350.1.13.10 it y of MEDICINE 4.2.7.2.686 [place] - [phone] [address] 2021-08-03 2021-08-[address] [facility] 1.2.840.114 [id number] Univers 00:00:00 00:00:00 Radha SWEENEY 350.1.13.10 it y of MEDICINE 4.2.7.2.686 [place] - [id number] [address] 2021-08-02 2021-08-[address] [facility] 1.2.840.114 [id number] Univers 00:00:00 00:00:00 Radha SWEENEY 350.1.13.10 it y of MEDICINE 4.2.7.2.686 [place] - [id number] [address] 2021-08-02 2021-08-02 Refjo-ann RainesCH[address] 1.2.840.114 [id number] Univers 00:00:00 00:00:00 [facility] 350.1.13.10 i ty of PEDIATRIC 4.2.7.2.686 [facility] [phone] [address] 2021-08-02 2021-08-02 Refjo-ann CarrascoCHRIST[facility] 1.2.840.114 [id number] Univers 00:00:00 00:00:00 [place] MULTISPEC 350.1.13.10 ity of IALTY 4.2.7.2.686 [place] [phone] [facility] JAVIER [address] [place] DIABETES CLINIC 2021-08-02 2021-08-02 [facility] [facility] 1.2.840.114 [id number] Univers 00:00:00 00:00:00 Catalina SWEENEY 350.1.13.10 ity of MEDICINE 4.2.7.2.686 [place] - [id number] [address] 2021-08-01 2021-08-[address] [facility] 1.2.079.933 [id number] Univers 00:00:00 00:00:00 Rene Mar MULTISPEC 350.1.13.10 ity of [place] 4.2.7.2.686 [place] [phone] [facility] AND JAVIER [address] DIABETES CLINIC 2021-07-29 2021-07-29 [facility] 1.2.840.114 [id number] Univers 12:53:28 23:59:00 Encounter Curtis WHEELER 350.1.13.10 ity of [place] 4.2.7.2.686 [place] [phone] [facility] AND JAVIER [address] DIABETES CLINIC 2021-07-29 2021-07-29 Outpatient R PEYMAN [facility] [id number] Univers 12:53:28 23:59:00 CURTIS [facility] 2021-07-29 2021-07-29 Office [facility] 1.2.840.114 [id number] Univers 13:30:00 14:00:00 Visit Curtis WHEELER 350.1.13.10 ity of [facility] 4.2.7.2.686 [facility] [place] [phone] [facility] AND HERRERA [address] [place] DIABETES CLINIC 2021-07-29 2021-07-29 [facility] [id number] Univers 13:30:00 13:30:00 CURTIS [facility] 2021-07-28 2021-07-28 Telephone [facility] 1.2.223.407 [id number] Univers 00:00:00 00:00:00 Curtis WHEELER 350.1.13.10 ity of [facility] 4.2.7.2.686 [facility] [phone] [facility] HERRERA [address] [place] [place] DIABETES CLINIC 2021-07-27 2021-07-27 Telephone [facility] 1.2.600.491 [id number] Univers 00:00:00 00:00:00 Curtis WHEELER 350.1.13.10 ity [facility] 4.2.7.2.686 [facility] [place] [phone] [facility] JAVIER [address] [place] [place] DIABETES CLINIC 2021-07-20 2021-07-20 Outpatient R JHONY [facility] [id number] Univers 16:45:00 17:37:40 SAMINA camryn [facility] 2021-07-20 2021-07-20 Urgent Samina Booker [facility] 1.2.840.114 [id number] Univers 16:19:24 17:37:40 Care Unknown, Attending [place] 350.1.13.10 ity of PEDIATRIC 4.2.7.2.686 [place] [phone] [facility] [address] 2021-07-05 2021-07-05 Outpatient [facility] [id number] Univers 10:00:00 10:00:00 CURTIS [facility] 2021-07-01 2021-07-01 Outpatient R JHONY [facility] [id number] Univers 16:00:00 14:32:17 SAMINA [facility] 2021-07-01 2021-07-01 Nurse Nurse, Anthony Adult Urgent [facility] 1. 2.840.114 [id number] Univers 11:41:16 11:56:16 Visit Unknown, Attending [place] 350.1.13.10 ity of PEDIATRIC 4.2.7.2.686 [facility] [phone] [facility] [address] 2021-06-30 2021-06-30 Telephone Peyman [facility] 1.2.833.489 [id number] Univers 00:00:00 00:00:00 Curtis WHEELER 350.1.13.10 ity of [place] IALTY 4.2.7.2.686 [facility] [id number] [place] [address] [address] DIABETES CLINIC 2021-06-28 2021-06-28 Nurse Therapy, Clc Covid Infusion [facility] 1.2.840.114 [id number] Univers 10:23:31 11:23:31 Visit Tejinder Valles [facility] 350.1.13.10 ity of [place] 4.2.7.2.686 [facility] [phone] [facility] [address] OFFICE BUILDING 2021-06-28 2021-06-28 Outpatient R SHABANA [facility] [id number] Univers 10:30:00 10:30:00 TEJINDER [facility] 2021-06-27 2021-06-27 Outpatient R AMOS [facility] [id number] Univers 09:00:00 09:00:00 RADHA [facility] 2021-06-27 2021-06-[address] [facility] 1.2.840.114 [id number] Univers 08:22:01 08:52:01 ne Visit Radha SWEENEY 350.1.13.10 i ty of MEDICINE 4.2.7.2.686 [facility] CLINIC - [phone] [address] 2021-06-25 2021-06-25 Urgent Ashley Raines [facility] 1.2.840.114 [id number] Univers 09:06:44 09:55:18 Care Unknown, Attending [place] 350.1.13.10 ity of PEDIATRIC 4.2.7.2.686 Te [facility] [phone] [address] 2021-06-25 2021-06-25 Outpatient R OLU [facility] [id number] Univers 09:00:00 09:55:18 ASHLEY velezy o f [facility] 2021-06-06 2021-06-06 Urgent Ever Helm [facility] 1.2 .840.114 [id number] Univers 17:12:40 17:50:36 Care Unknown, Attending [place] 350.1.13.10 ity of Pediatric 4.2.7.2.686 [facility] [phone] [address] 2021-06-06 2021-06-06 Outpatient R RUDDY, [facility] [id number] Univers 17:15:00 17:15:00 ATTENDING ity of [facility] 2021-06-06 2021-06-[address] [facility] 1.2.408.986 [id number] Univers 00:00:00 00:00:00 Curtis WHEELER 350.1.13.10 ity Tess [place] 4.2.7.2.686 [facility] [phone] [address] DIABETES CLINIC 2021-06-04 2021-06-[address] [facility] 1.2.840.114 [id number] Univers 00:00:00 00:00:00 Radha FAMILY 350.1.13.10 it y of MEDICINE 4.2.7.2.686 [place] - [phone] [address] 2021-05-31 2021-05-31 Solis Trinidad [facility] 1.2.840.114 [id number] Univers 00:00:00 00:00:00 Radah FAMILY 350.1.13.10 it y of MEDICINE 4.2.7.2.686 [place] - [phone] [address] 2021-05-20 2021-05-[address] [facility] 1.2.508.581 [id number] Univers 00:00:00 00:00:00 Curtis WHEELER 350.1.13.10 ity of [place].2.7.2.686 [place] [phone] [address] DIABETES CLINIC 2021-05-03 2021-05-03 Building Contractor Lab, [facility] [address] [facility] 1 .2.840.114 [id number] Univers 09:27:09 09:42:09 Visit Barrington Venegas 350.1.13.10 ity of MEDICINE 4.2.7.2.686 [place] - [phone] [address] 2021-05-03 2021-05-03 Building Contractor Lab, [facility] [address] [facility] 1 ..840.114 [id number] Univers 09:27:09 09:42:09 Visit Barrington Venegas 350.1.13.10 ity of MEDICINE 4.2.7.2.686 [place] - [id number] [address] 2021-05-03 2021-05-03 Outpatient R ANDREA [facility] [id number] Univers 08:00:00 08:00:00 CATALINA [facility] 2021-04-28 2021-04-28 Outpatient R PEYMAN [facility] [id number] Univers 14:00:00 14:00:00 CURTIS [facility] 2021-04-28 2021-04-[address] [facility] 1.2.202.[id number] [facility] 00:00:00 00:00:00 Curtis WHEELER 350.1.13.10 ity of [place] 4.2.7.2.686 [place] [id number] [address] DIABETES CLINIC 2021-04-25 2021-04-[address] [facility] 1.2.840.114 [id number] Univers 15:41:06 16:11:06 Visit Catalina SWEENEY 350.1.13.10 ity of MEDICINE 4.2.7.2.686 [place] - [phone] [address] 2021-04-25 2021-04-25 Outpatient [facility] [id number] Univers 13:30:00 13:30:00 CATALINA [facility] 2021-04-19 2021-04-19 Outpatient R ALEX [facility] [id number] Univers 11:30:00 11:30:00 HEATH [facility] 2021-04-16 2021-04-16 [facility] 1.2.840.114 [id number] Univers 00:00:00 00:00:00 Radha SWEENEY 350.1.13.10 it y of MEDICINE 4.2.7.2.686 [place] - [phone] [address] 2021-04-16 2021-04-16 [facility] 1.2.840.114 [id number] Univers 00:00:00 00:00:00 Radha [facility] 350.1.13.10 it y of MEDICINE 4.2.7.2.686 [place] - [id number] [address] 2021-03-29 2021-03-29 Emergency Brady Ivy TRAUMA 1.2.840.11 4 [id number] Univers 16:04:00 23:55:00 Amando De La Rosa [facility] 350.1.13.10 ity of 4.2.7.2.686 [place] [phone] [facility] [address] [place] 2021-03-28 2021-03-28 Letter JAVIER Parker 1.2.840.114 [id number] Univers 00:00:00 00:00:00 (Out) Norma STOVER 350.1.13.10 it y of HOSPITAL 4.2.7.2.686 [place] [phone] [facility] [address] [place] 2021-03-27 2021-03-[address] [facility] 1.2.597.054 [id number] Univers 00:00:00 00:00:00 [facility] 350.1.13.10 it y of Pediatric 4.2.7.2.686 Te [facility] [phone] [facility] [address] 2021-03-26 2021-03-[address] [facility] 1.2.840.114 [id number] Univers 16:32:41 18:13:07 Care [facility] 350.1.13.10 it y of Pediatric 4.2.7.2.686 [place] [phone] [facility] [address] 2021-03-26 2021-03-26 Outpatient R JHONY [facility] [id number] Univers 16:30:00 16:30:00 SAMINA camryn [facility] 2021-03-25 2021-03-25 Out[facility] [id number] Univers 08:00:00 08:00:00 CURTIS camryn [facility] 2021-03-24 2021-03-[address] [facility] 1.2.840.114 [id number] Univers 15:42:41 16:12:41 ne Visit New WHEELER 350.1.13.10 ity of [place] 4.2.7.2.686 [facility] [phone] [facility] [address] [place] DIABETES CLINIC 2021-03-24 2021-03-24 Outpatient R LUNA [facility] [id number] Univers 16:00:00 16:00:00 NEW guzmán o f [facility] 2021-03-24 2021-03-24 Outpatient R PEYMAN [facility] [id number] Univers 09:30:00 09:30:00 CURTIS guzmán [facility] 2021-03-24 2021-03-[address] [facility] 1.2.779.770 [id number] Univers 00:00:00 00:00:00 Curtis WHEELER 350.1.13.10 ity of [place] 4.2.7.2.686 [facility] [id number] [facility] [address] [place] DI[facility]ES CLINIC 2021-03-21 2021-03-21 Building Contractor Vtc-Lab [facility] 1.2.840.114 [id number] Univers 14:56:09 15:11:09 Visit New CarrascoPEC 350.1.13 .10 ity of IALTY 4.2.7.2.686 [place] [id number] [facility] [address] [place] DIABETES CLINIC 2021-03-21 2021-03-21 Outpatient R LUNA [facility] [id number] Univers 14:45:00 14:45:00 NEW vogel [facility] 2021-03-21 2021-03-[address] [facility] 1.2.091.342 [id number] Univers 00:00:00 00:00:00 Curtis RAHMANPEC 350.1.13.10 ity of [place] I[place] 4.2.7.2.686 [place] [id number] [facility] [address] [place] DIABETES CLINIC 2021-03-02 2021-03-[address] [facility] 1.2.840.114 [id number] Univers 00:00:00 00:00:00 Radha SWEENEY 350.1.13.10 it y of MEDICINE 4.2.7.2.686 [place] - [id number] [address] 2021-02-22 2021-02-[address] [facility] 1.2.840.114 [id number] Univers 13:46:43 14:41:46 Visit New WHEELER 350.1.13.10 ity of IALTY 4.2.7.2.686 [facility] [place] [id number] [facility] [address] [place] DIABETES CLINIC 2021-02-22 2021-02-22 Outpatient Annalee CARRASCO [facility] [id number] Univers 14:00:00 14:00:00 NEW vogel [facility] 2021-02-16 2021-02-16 [facility] 1.2.605.409 [id number] Univers 00:00:00 00:00:00 Radha SWEENEY 350.1.13.10 it y of MEDICINE 4.2.7.2.686 [place] - [id number] [address] 2021-02-12 2021-02-12 Urgent Care, Gal Adult Urgent [facility] 1.2 .840.114 [id number] Univers 13:51:08 15:01:56 Care Unknown, Attending [place] 350.1.13.10 ity of Ashley Raines Pediatric 4.2.7.2.686 [facility] [phone] [place] [address] [address] 2021-02-12 2021-02-12 Outpatient R RUDDY [facility] [id number] Univers 13:45:00 13:45:00 ATTENDING ity [facility] 2021-02-12 2021-02-12 Telephone [facility] 1.2.689.224 [id number] Univers 00:00:00 00:00:00 Curtis WHEELER 350.1.13.10 ity of Scooternishant [place] 4.2.7.2.686 [facility] [place] [phone] [address] DIABETES CLINIC 2021-02-11 2021-02-11 [facility] 1.2.254.220 [id number] Univers 00:00:00 00:00:00 Radha FAMILY 350.1.13.10 it y of MEDICINE 4.2.7.2.686 [place] - [phone] [address] 2021-02-08 2021-02-08 Outpatient R PEYMAN [facility] [id number] Univers 09:00:00 09:00:00 CURTIS [facility] 2021-02-08 2021-02-08 [facility]phone [facility] 1.2.223.741 [id number] Univers 00:00:00 00:00:00 Radha WSEENEY 350.1.13.10 it y of MEDICINE 4.2.7.2.686 [place] - [id number] [address] 2021-02-01 2021-02-01 Telephone [facility] 1.2.296.026 [id number] Univers 00:00:00 00:00:00 Curtis WHEELER 350.1.13.10 ity of [place] 4.2.7.2.686 [facility] [place] [phone] [address] DIABETES CLINIC 2021-01-31 2021-01-31 Orders Doctor HERRERA 1.2.840.114 [id number] Univers 00:00:00 00:00:00 Only Unassigned, JOLANTA 350.1.13.10 ity of [place] [facility] 4.2.7.2.686 [place] [id number] [address] 2021-01-30 2021-01-[address] [facility] 1.2.840.114 [id number] Univers 00:00:00 00:00:00 Radha SWEENEY 350.1.13.10 it y of MEDICINE 4.2.7.2.686 [place] [facility] - [phone] [address] 2021-01-25 2021-01-25 [facility] [id number] Univers 13:30:00 13:30:00 [facility] 2021-01-24 2021-01-[address] [facility] 1.2.840.114 [id number] Univers 15:50:41 16:59:23 Visit Radha SWEENEY 350.1.13.10 it y of MEDICINE 4.2.7.2.686 [place] [facility] - [id number] [address] 2021-01-24 2021-01-24 [facility] [id number] Univers 16:00:00 16:00:00 [facility] 2021-01-20 2021-01-20 Outpatient [facility] [id number] Univers 09:00:00 09:00:00 [facility] 2021-01-11 2021-01-11 Outpatient Annalee [facility] [id number] Univers 09:30:00 09:30:00 CURTIS [facility] 2021-01-07 2021-01-07 Outpatient Annalee MICHEL [facility] [id number] Univers 11:30:00 11:30:00 AZALIA [facility] 2021-01-05 2021-01-05 [facility]phone [facility] 1.2.544.604 [id number] Univers 00:00:00 00:00:00 Radha SWEENEY 350.1.13.10 it y of MEDICINE 4.2.7.2.686 [place] [facility] - [phone] [address] 2020-12-31 2020-12-31 Refill Doctor [facility] 1.2.840.114 [id number] Univers 00:00:00 00:00:00 Unassigned, MULTISPEC 350.1.13.10 ity of [place]AL[place] 4[place]2.7[place]2.686 [place] [facility] [phone] [facility] AND [address] [facility] 2020-12-31 2020-12-31 Refill Emeli [facility] 1.2.840.114 [id number] Univers 00:00:00 00:00:00 Cait FAMILY 350.1.13.10 it y of MEDICINE 4.2.7.2.686 [place] [facility] - [phone] [address] 2020-12-31 2020-12-31 Refill Doctor [facility] 1.2.840.114 [id number] Univers 00:00:00 00:00:00 Unassigned, FAMILY 350.1.13.10 ity [place] MEDICINE 4.2.7.2.686 [place] - [phone] [address] 2020-12-30 2020-12-30 Urgent Monika Manley [facility] 1. 2.840.114 [id number] Univers 17:19:08 17:34:08 Care Unknown, [place]ending [place] 350.1.13.10 ity of Pediatric 4.2.7.2.686 [facility] [phone] [address] 2020-12-30 2020-12-30 Outpatient R RUDDY, [facility] [id number] Univers 17:15:00 17:15:00 ATTENDING ity of [facility] 2020-12-24 2020-12-24 Outpatient R MARILU, [facility] [id number] Univers 10:30:00 10:30:00 AZALIA ity of [facility] 2020-12-24 2020-12-24 Orders Doctor HERRERA 1.2.840.114 [id number] Univers 00:00:00 00:00:00 Only Unassigned, JOLANTA 350.1.13.10 ity of [place] HOSPITAL 4.2.7.2.686 [place] [phone] [facility] [address] 2020-12-21 2020-12-21 Office [facility] 1.2.840.114 [id number] Univers 09:12:04 10:15:32 Visit Curtis WHEELER 350.1.13.10 ity [facility] 4[place]2.7.2.686 [place] [phone] [facility] [place] [address] [facility] 2020-12-21 2020-12-21 [facility] [id number] Univers 09:30:00 09:30:00 CURTIS [facility] 2020-12-20 2020-12-20 Telephone [facility] [id number] Univers 00:00:00 00:00:00 Crutis LIAM 350.1.13.10 ity [facility] 4[place]2.7.2.686 [place] CENTER [phone] [address] [facility] 2020-12-14 2020-12-14 Office Jory, UNIVERS 1.2.836.616 [id number] Univers 08:55:44 08:56:16 Visit Camlio Machuca 350.1.13.10 i ty of [place] NATIONAL 4.2.7.2.686 [place] BANK [phone] [facility]. [address] 2020-12-14 2020-12-14 Outpatient R JORY [facility] [id number] Univers 08:15:00 08:15:00 CAMILO guzmán [facility] 2020-12-14 2020-12-14 Office Jory, UNIVERS 1.2.550.894 [id number] Univers 07:58:10 08:13:10 Visit Camilo Machuca 350.1.13.10 i ty of [place] NATIONAL 4.2.7.2.686 [place] BANK [phone] [facility]. [address] 2020-12-14 2020-12-14 [facility] [id number] Univers 08:00:00 08:00:00 CAMILO guzmán [facility] 2020-12-132020-12-13 Outpatient [facility] [id number] Univers 11:00:00 11:00:00 ORPHEUS ity [facility] 2020-12-03 2020-12-03 Office Jordan, [facility] Resident UNIVERSIT 1.2.8 40.114 [id number] Univers 08:06:52 09:07:25 Visit Jenny Avila Annalee HEALTH 350.1.13.10 ity of CLINICS [place] [id number] [facility] [address] 2020-12-03 2020-12-03 Outpatient R [facility] [id number] Univers 08:00:00 08:00:00 ity [facility] 2020-12-01 2020-12-[address] [facility] 1.2.840.114 [id number] Univers 00:00:00 00:00:00 Radha FAMILY 350.1.13.10 it y of MEDICINE 4.2.7.2.686 [place] CL[place]IC - [phone] [address] 2020-11-26 2020-11-26 Office BRISEIDA Guadalupe 1.2.699.281 [id number] Univers 09:13:13 09:43:13 Visit [facility] 350.1.13.10 ity of CLINICS [place] [phone] [facility] [address] 2020-11-26 2020-11-26 Outpatient R ANAYELI [facility] [id number] Univers 09:00:00 09:00:00 CONDON ity o f [facility] 2020-11-15 2020-11-15 Outpatient [facility] [id number] Univers 11:15:00 11:15:00 ORPHEUS ity [facility] 2020-11-09 2020-11-09 Office Amos [facility] 1.2.840.114 [id number] Univers 16:30:40 17:00:40 Visit Radha [facility] 350.1.13.10 it y of MEDICINE 4.2.7.2.686 [place] CL[place]IC - [phone] [address] 2020-11-09 2020-11-09 [facility] [id number] Univers 16:30:00 16:30:00 RADHA [facility] 2020-11-02 2020-11-[address] [facility] 1.2.840.114 [id number] Univers 00:00:00 00:00:00 Outreach [place] PRIMARY 350.1.13.10 i ty of [facility] [place].2.7.2.[place] [phone] Nh dical [address] 2020-10-29 2020-10-29 Telephone [facility] 1.2.676.168 [id number] Univers 00:00:00 00:00:00 Radha SWEENEY 350.1.13.10 it y of MEDICINE 4.2.7.2.686 [place] CL[place]IC - [phone] [address] 2020-10-28 2020-10-28 [facility] 1.2.840.114 [id number] Univers 13:00:00 23:59:00 Encounter Radha Machuca [facility] 350.1.13.10 ity of CLINICS 4.[place] [phone] [facility] [address] 2020-10-28 2020-10-28 Outpatient [facility] [id number] Univers 00:00:00 00:00:00 RADHA [facility] 2020-10-22 2020-10-22 Telephone [facility] 1.2.453.112 [id number] Univers 00:00:00 00:00:00 Radha SWEENEY 350.1.13.10 it y of MEDICINE 4.2.7.2.686 [place] CL[place]IC - [phone] [address] 2020-10-21 2020-10-21 [facility] 1.2.840.114 [id number] Univers 08:04:47 08:59:28 Visit Radha SWEENEY 350.1.13.10 it y of MEDICINE 4.2.7.2.686 [place] CL[place]IC - [phone] [address] 2020-10-21 2020-10-21 Outpatient R AMOS [facility] [id number] Univers 08:00:00 08:00:00 RADHA guzmán [facility] 2020-10-18 2020-10-18 Hospital Peyman [facility] 1.2.840.114 [id number] Univers 07:52:00 11:07:00 Encounter Curtis JAMAR 350.1.13.10 ity of [facility] 4.2.7.2.[place] C[place] AT [phone] Nh dicolena RAMIREZ 020 [facility] 2020-10-18 2020-10-18 Orders Doctor JAVIER 1.2.840.114 [id number] Univers 00:00:00 00:00:00 Only Unassigned, JOLANTA 350.1.13.10 ity of [place] [facility] 4.2.7.2.686 [place] [id number] [facility] [address] 2020-10-15 2020-10-15 Laboratory Only, Pcp Test [facility] 1.2.840. 114 [id number] Univers 09:59:05 10:14:05 Only Curtis Morley [place] PRIMARY 350.1.13.1 0 ity of CARE 4.2.[place].2.[place] [phone] Nh liliolena [address] 2020-10-15 2020-10-15 Outpatient R PEYMAN [facility] [id number] Univers 10:00:00 10:00:00 CURTIS ramirez [facility] 2020-10-14 2020-10-14 Telephone [facility] 1.2.975.996 [id number] Univers 00:00:00 00:00:00 Radha SWEENEY 350.1.13.10 it y of MEDICINE 4.2.7.2.686 [place] CL[place]IC - [phone] [address] 2020-10-14 2020-10-14 Telephone [facility] 1.2.604.847 [id number] Univers 00:00:00 00:00:00 Radha FAMILY 350.1.13.10 it y of MEDICINE 4.2.7.2.686 [place] CL[place]IC - [phone] [address] 2020-10-14 2020-10-14 Telephone [facility] 1.2.840.114 [id number] Univers 00:00:00 00:00:00 [facility] 350.1.13.10 ity of Cancer [place].2.[place].2.[place] - [phone] [facility] [address] 2020-10-13 2020-10-[address] [facility] 1.2.840.114 [id number] Univers 08:47:44 10:04:25 Visit Radha SWEENEY 350.1.13.10 it y of MEDICINE 4.2.7.2.686 [place] CL[place]IC - [phone] Med [facility] 311 [facility] 2020-10-13 2020-10-13 Outpatient [facility] [id number] Univers 09:00:00 09:00:00 RADHA [facility] 2020-10-11 2020-10-11 Outpatient [facility] [id number] Univers 11:15:00 11:15:00 [facility] 2020-10-06 2020-10-06 Patient Doctor JAVIER 1.2.840.114 [id number] Univers 00:00:00 00:00:00 Secure Msg Unassigned, JOLANTA 350.1.13.10 ity of [place] [facility] 4.2.7.2.686 [place] [id number] [facility] [address] 2020-09-24 2020-09-24 Aiyana Llanes UNIVERSIT 1.2.840.114 [id number] Univers 00:00:00 00:00:00 Y HEALTH 350.1.13.10 i ty of CLINICS [place]2.[place] [id number] [facility] [address] 2020-09-23 2020-09-[address] [facility] 1.2.840.114 [id number] Univers 08:43:07 09:51:11 Visit Curtis WHEELER 350.1.13.10 ity of [place] 4.2.7.2.[place] CENTER [phone] [facility] AND HERRERA [address] DIABETES CLINIC 2020-09-23 2020-09-23 Outpatient R PEYMAN [facility] [id number] Univers 09:00:00 09:00:00 CURTIS guzmán [facility] 2020-09-23 2020-09-23 Prep For Harley [facility] 1.2.840.114 [id number] Univers 00:00:00 00:00:00 Surgery Chan MULTISPEC 350.1.13.10 ity [facility] 4.2.7.2.686 [facility] [phone] [facility] AND HERRERA [address] [place] [address] DIABETES CLINIC 2020-09-17 2020-09-17 Outpatient R [facility] [id number] Univers 14:30:00 14:30:00 ity [facility] 2020-09-13 2020-09-13 Letter JAVIER Parker 1.2.840.114 [id number] Univers 00:00:00 00:00:00 (Out) Norma STOVER 350.1.13.10 it y of [facility] 4.2.7.2.686 [facility] [phone] [facility] [address] 2020-09-11 2020-09-[address] [facility] 1.2.840.114 [id number] Univers 11:21:37 11:36:37 Care [facility] 350.1.13.10 i ty of Pediatric 4.2.7.2.686 [place] [phone] [facility] [address] 2020-09-11 2020-09-11 Outpatient R OLU [facility] [id number] Univers 11:30:00 11:30:00 ASHLEY guzmán o f [facility] 2020-09-08 2020-09-[address] [facility] 1.2.840.114 [id number] Univers 19:59:31 20:28:[address] [facility] Erna Clarendon 350.1.13.10 it y of Pediatric 4.2.7.2.686 [place] [phone] [address] 2020-09-08 2020-09-08 Outpatient R JHONY [facility] [id number] Univers 19:45:00 19:45:00 SAMINA [facility] 2020-09-022020-09-02 Building Contractor [facility] UNIVERSIT 1.2.840.114 [id number] Univers 16:33:28 16:48:28 Visit Skyler Ferrari [facility] 350.1.13 .10 ity of CLINICS [place] [id number] [facility] [address] 2020-09-02 2020-09-02 Office BRISEIDA Ferrari 1.2.840.114 [id number] Univers 16:03:20 16:33:20 Visit Skyler [facility] 350.1.13.10 ity of CLINICS [place] [phone] [facility] [address] 2020-09-02 2020-09-02 Outpatient R SKYLER FERRARI [facility] [id number] Univers 16:00:00 16:00:00 SKYLER [facility] 2020-08-27 2020-08-27 Office [facility] 1.2.039.874 [id number] Univers 10:22:19 11:41:08 Visit [facility] 350.1.13.10 ity of Cancer [place].2.[place].2.[place] - [phone] Med [facility]Mary [facility] [address] 2020-08-27 2020-08-27 Outpatient R [facility] [id number] Univers 10:30:00 10:30:00 ORPHEUS ity [facility] 2020-08-27 2020-08-27 Orders Doctor HERRERA 1.2.840.114 [id number] Univers 00:00:00 00:00:00 Only Unassigned, JOLANTA 350.1.13.10 ity [place] HOSPITAL 4.2.7.2.686 [place] [phone] [facility] [address] 2020-08-20 2020-08-20 Outpatient R [facility] [id number] Univers 13:00:00 13:00:00 ORPHEUS ity [facility] 2020-08-19 2020-08-19 Office BRISEIDA Mixon 1.2.840.114 [id number] Univers 10:34:33 11:38:15 Visit Micheline Machuca Rewarding Return 350.1.13.10 i ty of CLINICS 4.2.[place] [id number] [facility] [address] 2020-08-19 2020-08-19 Outpatient R ORAL [facility] [id number] Univers 10:30:00 10:30:00 MICHELINE ity [facility] 2020-08-17 2020-08-17 Patient Anayeli [facility] 1.2.840.114 [id number] Univers 00:00:00 00:00:00 Secure Msg [facility] Comecer 350.1.13.10 ity of [place] 4.2.7.2.686 [place] [phone] [place] [address] [place] [address] 2020-08-12 2020-08-12 Outpatient R SKYLER FERRARI [facility] [id number] Univers 09:30:00 09:30:00 SKYLER FERRARI [facility] 2020-07-31 2020-07-[address] [facility] 1.2.840.114 [id number] Univers 16:16:45 16:31:45 Care [facility] 350.1.13.10 i ty of Pediatric 4.2.7.2.686 [place] [phone] [facility] [address] 2020-07-31 2020-07-31 Outpatient [facility] [id number] Univers 16:15:00 16:15:00 ASHLEY guzmán o f [facility] 2020-07-31 2020-07-31 Orders Doctor JAVIER 1.2.840.114 [id number] Univers 00:00:00 00:00:00 Only Unassigned, JOLANTA 350.1.13.10 ity of [place] HOSPITAL 4.2.7.2.686 [place] [id number] [facility] [address] 2020-07-29 2020-07-29 Patient Doctor JAVIER 1.2.840.114 [id number] Univers 00:00:00 00:00:00 Secure Msg Unassigned, JOLANTA 350.1.13.10 ity of [place] HOSPITAL 4.2.7.2.686 [place] [phone] [facility] [address] 2020-07-28 2020-07-28 Urgent Samina Booker A [facility] 1.2.840.114 [id number] Univers 16:05:38 16:20:38 Care Unknown, [facility] 350.1.13.10 ity of Pediatric 4.2.7.2.686 Te [facility] [phone] [facility] [address] 2020-07-28 2020-07-28 Outpatient R UNKNOWN, [facility] [id number] Univers 16:15:00 16:15:00 ATTENDING ity [facility] 2020-07-27 2020-07-27 Telephone [facility] 1.2.979.432 [id number] Univers 00:00:00 00:00:00 Radha FAMILY 350.1.13.10 it y of MEDICINE 4.2.7.2.686 [place] CL[place]IC - [id number] [address] 2020-07-27 2020-07-27 Telephone [facility] 1.2.279.923 [id number] Univers 00:00:00 00:00:00 Radha FAMILY 350.1.13.10 it y of MEDICINE 4.2.7.2.686 [place] CL[place]IC - [phone] [address] 2020-07-27 2020-07-27 Telephone [facility] 1.2.118.677 [id number] Univers 00:00:00 00:00:00 Radha SWEENEY 350.1.13.10 it y of MEDICINE 4.2.7.2.686 [place] CL[place]IC - [id number] [address] 2020-07-23 2020-07-23 Office Aiyana Hollingsworth UNIVERSIT 1.2.840.114 [id number] Univers 14:42:56 15:29:43 Visit Y HEALTH 350.1.13.10 i ty of CLINICS 4[place].2.[place] [id number] [facility] [address] 2020-07-23 2020-07-23 Outpatient R AIYANA HOLLINGSWORTH [facility] [id number] Univers 14:45:00 14:45:00 ity [facility] 2020-07-23 2020-07-23 Ancillary Maik Jacobo [facility] 1.2.840.114 [id number] Univers 10:06:48 10:46:48 Visit Brady Kang PRIMARY 350.1.13.10 ity of CARE [place].2.[place].2.[place] [phone] [facility] [address] 2020-07-23 2020-07-23 Telephone Amos [facility] 1.2.894.618 [id number] Univers 00:00:00 00:00:00 Radha FAMILY 350.1.13.10 it y of MEDICINE 4.2.7.2.686 [place] - [id number] [address] 2020-07-22 2020-07-22 Nurse Bessie Alexandre 1.2.840.114 [id number] Univers 00:00:00 00:00:00 Triage JOLANTA 350.1.13.10 it y of HOSPITAL 4.2.7.2.686 [place] [id number] [facility] [address] 2020-07-17 2020-07-17 Hospital [facility] 1.2.638.782 [id number] Univers 12:40:52 23:59:00 Encounter Skyler [facility] 350.1.13.10 ity of [place] [phone] [facility] [address] ([facility]) 2020-07-17 2020-07-17 Outpatient SKYLER DOUGHERTY [facility] [id number] Univers 12:40:52 23:59:00 SKYLER FERRARI of [facility] 2020-07-16 2020-07-16 Office Fellow, Cardiology UNIVERSIT 1.2.8 40.114 [id number] Univers 13:30:27 14:23:07 Visit Taurus Guadalupe [facility] 350.1.13.10 ity of CLINICS 4.2.7.2.[place] [phone] [place] [address] 2020-07-16 2020-07-16 Outpatient Annalee GUADALUPE [facility] [id number] Univers 13:30:00 13:30:00 TAURUS velezy o f [facility] 2020-07-15 2020-07-15 Outpatient SKYLER DOUGHERTY [facility] [id number] Univers 12:00:00 12:00:00 SKYLER FERRARI [facility] 2020-07-13 2020-07-13 Office Justin [facility] 1.2.840.114 [id number] Univers 10:03:54 12:32:51 Visit Octavio SWEENEY 350.1.13.10 it y of MEDICINE 4.2.7.2.686 [place] CL[place]IC - [phone] [address] 2020-07-13 2020-07-13 Outpatient R JUSTIN [facility] [id number] Univers 10:10:00 10:10:00 OCTAVIO guzmán [facility] 2020-07-13 2020-07-13 Ancillary Bishop Rossa [facility] 1.2. 840.114 [id number] Univers 08:09:29 09:09:29 Visit Brady Kang PRIMARY 350.1.13.10 ity of CARE 4.2.7.2.686 Bill AHUJA [id number] [facility] [address] 2020-07-13 2020-07-13 Outpatient Annalee KANG [facility] [id number] Univers 08:00:00 08:00:00 BRADY guzmán [facility] 2020-06-30 2020-06-30 Office BRISEIDA Ferrari 1.2.840.114 [id number] Univers 15:35:16 16:05:16 Visit Skyler [facility] 350.1.13.10 ity of CLINICS 4.2.7.2.686 Bill porter [id number] [address] 2020-06-30 2020-06-30 Outpatient R SKYLER FERRARI [facility] [id number] Univers 15:30:00 15:30:00 SKYLER FERRARI [facility] 2020-06-30 2020-06-30 Office Jocelyn [facility] 1.2.840.114 [id number] Univers 09:49:13 10:57:25 Visit Lucille Polo FAMILY 350.1.13.10 i ty of MEDICINE 4.2.7.2.686 [place]IC - [id number] [address] 2020-06-25 2020-06-25 Office Aiyana Hollingsworth UNIVERSIT 1.2.840.114 [id number] Univers 14:51:00 16:02:06 Visit Y HEALTH 350.1.13.10 i ty of CLINICS 4.2.7.2.686 [place] [phone] [address] 2020-06-25 2020-06-25 Outpatient R CRISTOPHER, AIYANA [facility] [id number] Univers 15:00:00 15:00:00 ity [facility] 2020-06-23 2020-06-[address] [facility] 1.2.131.908 [id number] Univers 00:00:00 00:00:00 Radha SWEENEY 350.1.13.10 it y of MEDICINE 4.2.7.2.686 [place]IC - [phone] [address] 2020-06-22 2020-06-22 Outpatient [facility] [id number] Univers 08:00:00 08:00:00 [facility] 2020-06-22 2020-06-22 Refill Doctor [facility] 1.2.840.114 [id number] Univers 00:00:00 00:00:00 UnassignedFAMILY 350.1.13.10 ity of [place] MEDICINE 4.2.7.2.686 [place]IC - [phone] [address] 2020-06-14 2020-06-[address] [facility] 1.2.840.114 [id number] Univers 12:54:45 14:42:06 Visit Lucille SWEENEY 350.1.13.10 i ty of MEDICINE 4.2.7.2.686 [place]IC - [id number] [address] 2020-06-14 2020-06-14 Outpatient R JOCELYN [facility] [id number] Univers 13:00:00 13:00:00 LUCILLE [facility] 2020-06-07 2020-06-[address] [facility] 1.2.840.114 [id number] Univers 08:59:10 10:09:23 Visit Radha SWEENEY 350.1.13.10 it y of MEDICINE 4.2.7.2.686 [place]IC - [phone] [address] 2020-06-07 2020-06-07 Outpatient R TRINIDAD [facility] [id number] Univers 09:00:00 09:00:00 RADHA ity of [facility] 2020-06-07 2020-06-07 Patient Doctor UNIVERSIT 1.2.737.457 [id number] Univers 00:00:00 00:00:00 Secure Msg Unassigned, Y HEALTH 350.1.13.10 ity of [place] CLINICS 4.2.7.2.[place] [id number] [facility] [address] 2020-06-05 2020-06-05 Telephone JAVIER Ace 1.2.290.617 [id number] Univers 00:00:00 00:00:00 Selena STOVER 350.1.13.10 it y of [facility] 4.2.7.2.686 [place] [id number] [facility] [address] 2020-06-05 2020-06-05 Telephone BRISEIDA Ace 1.2.840.114 [id number] Univers 00:00:00 00:00:00 Selena Y HEALTH 350.1.13.10 i ty of CLINICS 4.2.7.2.[place] [id number] [facility] [address] 2020-06-05 2020-06-05 Telephone JAVIER Grigsby 1.2.840.114 [id number] Univers 00:00:00 00:00:00 Tony STOVER 350.1.13.10 it y of HOSPITAL 4.2.7.2.686 [place] [phone] [address] 2020-06-04 2020-06-04 Office [place], [facility] Resident UNIVERSIT 1.2.8 40.114 [id number] Univers 15:21:29 16:31:00 Visit Keri Yee Y HEALTH 350.1.13.10 ity of CLINICS [place] [id number] [address] 2020-06-04 2020-06-04 Outpatient R [facility] [id number] Univers 15:30:00 15:30:00 ity of [facility] 2020-06-03 2020-06-03 Office BRISEIDA Mixon 1.2.840.114 [id number] Univers 10:01:28 10:31:28 Visit Micheline Y HEALTH 350.1.13.10 i ty of CLINICS 4.2.7.2.[place] [id number] [address] 2020-06-03 2020-06-03 Out[facility] [id number] Univers 10:00:00 10:00:00 MICHELINE ity of [facility] 2020-06-02 2020-06-02 [facility] 1.2.840.114 [id number] Univers 00:00:00 00:00:00 Secure Msg Norbert Vidal SPECIALTY 350.1.13.10 ity of CARE 4.2.7.2.[place] CENTER AT [phone] [address] 2020-05-31 2020-05-31 Telephone BRISEIDA Mixon 1.2.840.114 [id number] Univers 00:00:00 00:00:00 Micheline Y HEALTH 350.1.13.10 i ty of CLINICS 4.2.7.2.[place] [id number] [address] 2020-05-31 2020-05-31 Telephone Pcp, [facility] 1.2.840.114 [id number] Univers 00:00:00 00:00:00 Patient Y HEALTH 350.1.13.10 i ty of Does Not CLINICS 4.2.7.2.686 [place] Have A [id number] [address] 2020-05-28 2020-05-28 Hospital [facility] 1.2.840.114 [id number] Univers 08:52:00 12:40:00 Encounter Norbert V[facility] 350.1.13.10 ity of [place]2.7.2.686 [place] [facility] [phone] [address] ([facility]) 2020-05-28 2020-05-28 Orders Doctor JAVIER 1.2.840.114 [id number] Univers 00:00:00 00:00:00 Only Unassigned, JOLANTA 350.1.13.10 ity of [place] HOSPITAL 4.2.7.2.686 [place] [phone] [facility] [address] 2020-05-25 2020-05-25 Building Contractor Lab, [facility] [address] [facility] 1 .2.840.114 [id number] Univers 08:25:23 08:40:23 Visit Gordy Corbett 350.1.13.1 0 ity of MEDICINE 4.2.7.2.686 [place] CL[place]IC - [id number] [address] 2020-05-25 2020-05-25 Outpatient [facility] [id number] Univers 08:30:00 08:30:00 GORDY velezy [facility] 2020-05-24 2020-05-24 Laboratory Only, Pcp Test [facility] 1.2.840. 114 [id number] Univers 08:26:48 08:41:48 Only Norbert Diaz PRIMARY 350.1.13.10 ity of CARE [place] [phone] [facility] [address] 2020-05-24 2020-05-24 Outpatient R NORBERT DIAZ [facility] 1 [id number] Univers 08:30:00 08:30:00 [facility] 2020-05-17 2020-05-[address] [facility] 1.2.840.114 [id number] Univers 00:00:00 00:00:00 Secure Msg Cait PRIMARY 350.1.13.10 [place] [id number] [place] [address] 2020-05-14 2020-05-14 Building Contractor Lab, [facility] [address] [facility] 1 .2.840.114 [id number] Univers 13:06:12 13:21:12 Visit Elder Tena 350.1.13.1 0 ity of MEDICINE 4.2.7.2.686 [place] - [id number] [address] 2020-05-14 2020-05-14 Outpatient R DARINEL [facility] [id number] Univers 13:15:00 13:15:00 ELDER velezy [facility] 2020-05-13 2020-05-13 Office Emeli [facility] 1.2.840.114 [id number] Univers 13:18:56 17:12:41 Visit Cait [place] 350.1.13.10 it y of MEDICINE 4.2.7.2.686 [place] - [id number] [address] 2020-05-13 2020-05-13 Office BRISEIDA Mixon 1.2.840.114 [id number] Univers 10:24:15 11:30:53 Visit Micheline [facility] 350.1.13.10 i ty of [place]ICS [place] [id number] [facility] [address] 2020-05-13 2020-05-13 Outpatient R ORAL [facility] [id number] Univers 10:30:00 10:30:00 MICHELINE [facility] 2020-05-13 2020-05-13 Orders Doctor HERRERA 1.2.840.114 [id number] Univers 00:00:00 00:00:00 Only Unassigned, JOLANTA 350.1.13.10 ity of [place] [facility] 4.2.7.2.686 [place] [phone] [facility] [address] 2020-05-10 2020-05-10 Letter JAVIER Parker 1.2.840.114 [id number] Univers 00:00:00 00:00:00 (Out) Norma STOVER 350.1.13.10 it y of HOSPITAL 4.2.7.2.686 [place] [phone] [facility] [address] 2020-05-09 2020-05-09 Urgent Samina Booker A [facility] 1.2.840.114 [id number] Univers 10:57:08 11:59:21 Care Unknown, Attending [place] 350.1.13.10 ity of Pediatric 4.2.7.2.686 [place] [phone] [facility] [address] 2020-05-09 2020-05-09 Outpatient R RUDDY, [facility] [id number] Univers 11:00:00 11:00:00 ATTENDING ity [facility] 2020-02-09 2020-02-[address] [facility] [id number] Univers 00:00:00 00:00:00 Odilia [place] [id number] i ty of MEDICINE [id number] [place] [facility] - [phone] [address] 2020-01-27 2020-01-27 Outpatient SKYLER DOUGHERTY [facility] [id number] Univers 13:30:00 13:30:00 SKYLER FERRARI acmryn [facility] 2019-10-23 2019-10-23 Outpatient SKYLER DOUGHERTY [facility] [id number] Univers 00:00:00 00:00:00 VEGASKYLER Mosquera camryn [facility] 2019-10-10 2019-10-10 Telephone Vega [facility] [id number] Univers 00:00:00 00:00:00 Skyler Gene PRIMARY [id number] [id number] [phone] [address] 2019-10-10 2019-10-10 Patient Doctor [facility] [id number] Univers 00:00:00 00:00:00 Secure Msg Unassigned, HEALTH [id number] it[place] [id number] [id number] [facility] [address] 2019-10-09 2019-10-09 Telephone Vega [facility] [id number] Univers 00:00:00 00:00:00 Skyler Gene PRIMARY [id number] [id number] [phone] [facility] [address] [place] [address] 2019-09-16 2019-09-[address] 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 [facility] [id number] Univers 10:42:50 13:40:32 Visit Elaina Live FAMILY [id number] [place] MEDIC[place] [id number] [facility] CL[facility]IC - [phone] [address] 2019-07-17 2019-07-17 Emergency X STEPHANIE, [facility] ERT [id number] Univers 11:47:16 16:16:00 APPLE guzmán [facility] 2019-04-08 2019-04-08 Outpatient RAFAELA Luque CHW [id number] [facility] 10:55:00 10:55:00 [facility] 2019-03-17 2019-03-17 Outpatient Walk-In, CHW CHW [id number] [facility] 11:00:00 11:00:00 [facility] 2019-03-13 2019-03-13 Outpatient RAFAELA Medina CHW [id number] [facility] 16:00:00 16:00:00 [facility] 2019-03-01 2019-03-01 Outpatient RAFAELA Luque CHW [id number] [facility] 10:49:00 10:49:00 [facility] [place] [facility] 2019-02-25 2019-02-25 Outpatient RAFAELA Luque CHW [id number] [facility] 07:47:00 07:47:00 [facility] 2019-02-24 2019-02-24 Outpatient RAFAELA Luque CHW [id number] [facility] 12:40:00 12:40:00 [facility] 2019-02-20 2019-02-20 Outpatient RAFAELA Luque CHHarish [id number] [facility] 11:19:00 11:19:00 [facility] 2019-02-19 2019-02-19 Outpatient RAFAELA Luque CHW [id number] [facility] 15:20:00 15:20:00 [facility] 2019-02-06 2019-02-06 Outpatient Wilson, W CHW [id number] [facility] 15:50:00 15:50:00 [facility] 2019-01-07 2019-01-07 Outpatient Wilson, W W [id number] [facility] 16:14:00 16:14:00 [facility] 2018-12-09 2018-12-09 Outpatient Wilson, W W [id number] [facility] 09:46:00 09:46:00 [facility] 2018-11-19 2018-11-19 Outpatient Martinez, W CHW [id number] [facility] 08:00:00 08:00:00 [facility] 2018-10-29 2018-10-29 Outpatient Martinez, W CHW [id number] [facility] 16:00:00 16:00:00 [facility] 2018-10-14 2018-10-14 Outpatient Walk-In, [facility] CHW [id number] [facility] 14:20:00 14:20:00 [facility] 2018-10-12 2018-10-12 Outpatient Robby, W CHW [id number] [facility] 09:20:00 09:20:00 [facility] 2018-10-09 2018-10-09 Outpatient Wilson, [facility] CHW [id number] [facility] 15:00:00 15:00:00 [facility] 2018-08-28 2018-08-28 Outpatient Wilson, [facility] CHW [id number] [facility] 10:37:00 10:37:00 [facility] 2018-08-26 2018-08-26 Outpatient Walk-In, [facility] CHW [id number] [facility] 11:40:00 11:40:00 [facility] 2018-08-16 2018-08-16 Outpatient Wilson, W CHW [id number] [facility] 08:18:00 08:18:00 [facility] 2018-08-09 2018-08-09 [id number] 10:39:00 10:39:00 [facility] 2018-08-08 2018-08-08 [facility] [id number] [facility] 16:20:00 16:20:00 [facility] Results Test Test Test Results Result Source Description Time Comments Comments DIAGNOSTIC 2023-01- Related Clinical History [facility] 24 The patient is 37 years T [facility] Medical TEAM; SPECIAL 22:21:22 old female who has been Branch COAGULATION followed by pain EVALUATION management for radicular pain. She recently had sacroiliac injections which did not help with her symptoms. Medications: Not currently taking any antiplatelet or anticoagulant medications Family History: No known family history of coagulation disorder 09/05/2022 4:21 PM [facility] LABORATORY SERVICESPertinent Lab Results ? Ref. Range ? 08/21/2022 ? PT ? 10.1 - 12.6 Sec. ? ? 12.4 aPTT ? 26 - 36 Sec. ? 36 ? ? Lupus Anticoagulant (DRVVT) Negative ? Lupus Anticoagulant (PTT-LA)? Negative ? Antiphospholipid Antibodies:? Anti-Beta 2 Glycoprotein 1? IgG? 0.0 - 20.0 SGU? 3.0 IgM? 0.0 - 20.0 SMU? 1.5? IgA? 0.0 - 20.0 JOSE? 5.1? Anticardiolipin? IgG? <10.0 GPL? 20.9? IgM? <10.0 MPL? 1.5? IgA? <15.0 APL? 0.1? 09/05/2022 4:21 PM [facility] LABORATORY SERVICESCoag DMT interpretation This patient has a positive test in the antiphospholipid antibody panel. ?To qualify for antiphospholipid syndrome, a patient must have a positive test in the antiphospholipid antibody panel at least twice and at least 12 weeks apart. ?Therefore, to meet the laboratory criteria for antiphospholipid syndrome, a repeat study must be performed 12 weeks or more from the time of the first study. ?Importantly, antiphospholipid syndrome also requires that the patient meet a clinical criterion, which includes thrombosis for men and women, or complications in women. 09/05/2022 4:21 PM [facility] LABORATORY SERVICESRecommendations If clinically indicated, repeat the antiphospholipid antibody panel in 12 weeks, to evaluate the patient for antiphospholipid syndrome. ? 09/05/2022 4:21 PM [facility] Misc. Sendout- [id number] Lupus Anticoagulant Reflexive Panel 2 14:40:11 Test Item Value Reference Range Interpretation Comme nts Miscellaneous Test (test code = 6266352989) See scanned report Performing Lab (test code = 9438429377) [facility] [id number] 03:44:30 Test Item Value Reference Interpretation Comments Range Anticardiolipin 20.9 See_Comment H [Automated Antibody IgG (test message] The code = 9119406285) system [facility] generated this result transmitted reference range: 0.0 - 10.0 GPL. The reference range was not used to interpret this result as normal/abnormal . Anticardiolipin 1.5 See_Comment [Automated Antibody IgM (test message] The code = 6664105408) system [facility] generated this result transmitted reference range: 0.0 - 10.0 MPL. The reference range was not used to interpret this result as normal/abnormal . Anticardiolipin 0.1 See_Comment [Automated Antibody IgA (test message] The code = 2935057444) system [facility] generated this result transmitted reference range: 0.0 - 15.0 APL. The reference range was not used to interpret this result as normal/abnormal . WILLIAMS (test code = Interpretation: ? WILLIAMS) ? IgG ?IgM ?IgANegative Values: ? <10.0 ?<10.0 ? <15.0Indeterminate ("Woodson" zone) Values: ? ?10.0-19.0 ? ?10.0-25.0 ? ? 15.0-27.0Medium Values: ? 20.0-80.0 ? ?26.0-80.0 ? ? 28.0-80.0High Positive Values: ? >80.0 ?>80.0 ? >80.0 Note:Medium-high levels of anticardiolipin antibodies (mainly of the IgG isotype)have been associated with thrombosis, recurrent losses andthrombocytopenia in patients with Antiphospholipid Syndrome and SLE relateddisorders.It is recommended to repeat the test that give values in theIndeterminate "Woodson" zone range at a later date (i.e. 4-6 weeks) to confirmpositivity. ?Cristobal Mantilla et al. ?J Thromb Haemost 2006; 4: 2210-4 Lab Interpretation Abnormal (test code = 28797-3) [facility] [id number] 03:44:30 Test Item Value Reference Interpretation Comments Range Anticardiolipin See_Comment H [Automated Antibody IgG (test message] The code = 0631454044) system [facility] generated this result transmitted reference range: 0.0 - 10.0 GPL. The reference range was not used to interpret this result as normal/abnormal . Anticardiolipin See_Comment [Automated Antibody IgM (test message] The code = 6604734265) system [facility] generated this result transmitted reference range: 0.0 - 10.0 MPL. The reference range was not used to interpret this result as normal/abnormal . Anticardiolipin See_Comment [Automated Antibody IgA (test message] The code = 1546938706) system [facility] generated this result transmitted reference range: 0.0 - 15.0 APL. The reference range was not used to interpret this result as normal/abnormal . WILLIAMS (test code = Interpretation: ? WILLIAMS) ? IgG ?IgM ?IgANegative Values: ? <10.0 ?<10.0 ? <15.0Indeterminate ("Woodson" zone) Values: ? ?10.0-19.0 ? ?10.0-25.0 ? ? 15.0-27.0Medium Values: ? 20.0-80.0 ? ?26.0-80.0 ? ? 28.0-80.0High Positive Values: ? >80.0 ?>80.0 ? >80.0 Note:Medium-high levels of anticardiolipin antibodies (mainly of the IgG isotype)have been associated with thrombosis, recurrent losses andthrombocytopenia in patients with Antiphospholipid Syndrome and SLE relateddisorders.It is recommended to repeat the test that give values in theIndeterminate "Woodson" zone range at a later date (i.e. 4-6 weeks) to confirmpositivity. ?Cristobal R et al. ?J Thromb Haemost 2006; 4: 2210-4 Lab Interpretation Abnormal (test code = 40798-7) [facility]I-B2 GLYCOPROTEIN I [id number] 03:40:36 Test Item Value Reference Interpretation Comments Range Anti-B2 3.0 See_Comment [Automated Glycoprotein 1 IgG message] The (test code = system which 8965320894) generated this result transmitted reference range : 0.0 - 20.0 SGU. The reference range was not used to interpret this result as normal/abnormal . Anti-B2 1.5 See_Comment [Automated Glycoprotein 1 IgM message] The (test code = system which 6379834269) generated this result transmitted reference range : 0.0 - 20.0 SMU. The reference range was not used to interpret this result as normal/abnormal . Anti-B2 5.1 See_Comment [Automated Glycoprotein 1 IgA message] The (test code = system which 1721266362) generated this result transmitted reference range : 0.0 - 20.0 JOSE. The reference range was not used to interpret this result as normal/abnormal . WILLIAMS (test code = INTERPRETATION:Values WILLIAMS) over 20 SGU, SMU, or JOSE units are considered positive. NOTE:A positive test for anti-B2 Glycoprotein I antibodies may indicate the presence of Antiphospholipid Syndrome. ?Anti-B2 Glycoprotein I antibodies have been associated with thrombosis, recurrent losses and/or thrombocytopenia. TEST PERFORMED AT:[facility]. [id number] [place] [address] [place] [address] Lab Interpretation Normal (test code = 06486-7) [facility] System[facility]-B2 GLYCOPROTEIN I [id number] 03:40:36 Test Item Value Reference Interpretation Comments Range Anti-B2 See_Comment [Automated Glycoprotein 1 IgG message] The (test code = system which 2808594377) generated this result transmitted reference range : 0.0 - 20.0 SGU. The reference range was not used to interpret this result as normal/abnormal . Anti-B2 See_Comment [Automated Glycoprotein 1 IgM message] The (test code = system which 0997421032) generated this result transmitted reference range : 0.0 - 20.0 SMU. The reference range was not used to interpret this result as normal/abnormal . Anti-B2 See_Comment [Automated Glycoprotein 1 IgA message] The (test code = system which 2331877996) generated this result transmitted reference range : 0.0 - 20.0 JOSE. The reference range was not used to interpret this result as normal/abnormal . WILLIAMS (test code = INTERPRETATION:Values WILLIAMS) over 20 SGU, SMU, or JOSE units are considered positive. NOTE:A positive test for anti-B2 Glycoprotein I antibodies may indicate the presence of Antiphospholipid Syndrome. ?Anti-B2 Glycoprotein I antibodies have been associated with thrombosis, recurrent losses and/or thrombocytopenia. TEST PERFORMED AT:[facility]. [id number] [place] [address] Science [facility] [place] [address] Lab Interpretation Normal (test code = 98955-2) [facility] [id number] 17:19:00 Test Item Value Reference Range Interpretation Comments POCT PREG (test code = 1605) Negative On board controls acceptable with C Yes Line (test code = 3574) POCT PREG LOT # (test code = 3575) POCT PREG TEST DATE (test code = 3576) [facility] [id number] 17:19:00 Test Item Value Reference Range Interpretation Comments POCT PREG (test code = 1605) Negative On board controls acceptable with C Yes Line (test code = 3574) POCT PREG LOT # (test code = 3575) POCT PREG TEST DATE (test code = 3576) [facility] [id number] 20:18:00 Test Item Value Reference Range Interpretation Comments POCT PREG (test code = 1605) Negative On board controls acceptable with C Yes Line (test code = 3574) POCT PREG LOT # (test code = 3575) POCT PREG TEST DATE (test code = 3576) Lab Interpretation (test code = Normal 49889-5) [facility] [id number] 20:18:00 Test Item Value Reference Range Interpretation Comments POCT PREG (test code = 1605) Negative On board controls acceptable with C Yes Line (test code = 3574) POCT PREG LOT # (test code = 3575) POCT PREG TEST DATE (test code = 3576) Lab Interpretation (test code = Normal 62818-9) [facility] [id number] 17:01:00 Test Item Value Reference Range Interpretation Comments POCT PREG (test code = 1605) Negative On board controls acceptable with C Yes Line (test code = 3574) POCT PREG LOT # (test code = 3575) POCT PREG TEST DATE (test code = 3576) [facility] [id number] 17:01:00 Test Item Value Reference Range Interpretation Comments POCT PREG (test code = 1605) Negative On board controls acceptable with C Yes Line (test code = 3574) POCT PREG LOT # (test code = 3575) POCT PREG TEST DATE (test code = 3576) [facility]
[2022-09-19 09:12] LABS: Urine Blood 3+ (Negative); Urine Glucose 3+ (Negative); Urine Protein Negative (Negative); Urine pH 5.5 (5.0-7.0)
[2022-09-19 09:28] LABS: Absolute Lymphocytes (CBC) 2.1 K/uL (0.7-4.9); Hematocrit 41.4 % (36.0-45.0); Lymphocytes % 22.1 % (15.3-44.8); MCV 87.2 fL (80-100); RBC Red Blood Cell Count 4.74 M/uL (3.86-4.86)
[2022-09-19] MEDS ORDERED: NA CHLORIDE 0.9% 1,000 ML ONE (09:33)
[2022-09-19 09:41] LABS: BUN Blood Urea Nitrogen 19 mg/dL (7-18); Bicarbonate 27 mmol/L (21-32); Glomerular Filtration Rate 119 ml/min (=/>90); Glucose Level 110 mg/dL (74-106); Potassium 3.9 mmol/L (3.5-5.1); Sodium Level 138 mmol/L (136-145)
[2022-09-19 09:42] LABS: HCG, Quantitative < 1 mIU/mL (1-3)
--- NOTE | 2022-09-19 10:04 | ER ---
Nurse's Notes [facility] Name: Kelsey Harrell Age: 37 yrs Sex: Female : 1985 Arrival Date: 09/19/2022 Time: 08:43 Bed 4 Private MD: Diagnosis: Abnormal uterine and vaginal bleeding, unspecified;Lightheaded Presentation: 09/19 08:45 Chief complaint: Patient states: Recently found out I was - spotting began ld1 yesterday. Nausea, lightheaded. Abdomen feels tight, denies cramping. Coronavirus screen: At this time, the client does not indicate any symptoms associated with coronavirus-19. Ebola Screen: No symptoms or risks identified at this time. Initial Sepsis Screen: Does the patient meet any 2 criteria? No. Patient's initial sepsis screen is negative. Does the patient have a suspected source of infection? No. Patient's initial sepsis screen is negative. Risk Assessment: Do you want to hurt yourself or someone else? Patient reports no desire to harm self or others. Onset of symptoms was September 19, 2022. 08:45 Method Of Arrival: Ambulatory ld1 08:45 Acuity: LENA 3 ld1 Triage Assessment: 08:47 General: Appears in no apparent distress. comfortable, Behavior is calm, cooperative, ld1 appropriate for age. 08:49 Pain: Complains of pain in abdomen Pain does not radiate. Pain currently is 5 out of 10 ld1 on a pain scale. EENT: No signs and/or symptoms were reported regarding the EENT system. Neuro: Level of Consciousness is awake, alert, obeys commands, Oriented to person, place, time, situation, Appropriate for age. Cardiovascular: Capillary refill < 3 seconds Patient's skin is warm and dry. Respiratory: Airway is patent Respiratory effort is even, unlabored. GI: Abdomen is round non-distended. : Reports vaginal bleeding that is bright red, light flow. Derm: No signs and/or symptoms reported regarding the dermatologic system. Musculoskeletal: No signs and/or symptoms reported regarding the musculoskeletal system. PATIENT CASE MANAGER: 08:49 LMP 08/13/2022 ld1 Historical: - Allergies: 08:47 No Known Allergies; ld1 - Home Meds: 08:47 metformin 1,000 mg oral tab 2 times per day [Active]; gabapentin 300 mg oral cap 1 cap ld1 3 times per day [Active]; - PMHx: 08:47 Diabetes mellitus; Neuropathy; ld1 - PSHx: 08:47 None; ld1 - Immunization history:: Adult Immunizations up to date, Client reports having NOT received the Covid vaccine. - Social history:: Smoking status: Patient denies any tobacco usage or history of. Patient/guardian denies using alcohol. Screenin:00 [facility] ED Fall Risk Assessment (Adult) History of falling in the last 3 months, jl7 including since admission No falls in past 3 months (0 pts) Confusion or Disorientation No (0 pts) Intoxicated or Sedated No (0 pts) Impaired Gait No (0 pts) Mobility Assist Device Used No (0 pt) Altered Elimination No (0 pt) Score/Fall Risk Level 0 - 2 = Low Risk Oriented to surroundings, Maintained a safe environment. Abuse screen: Denies threats or abuse. Denies injuries from another. Nutritional screening: No deficits noted. Tuberculosis screening: No symptoms or risk factors identified. Assessment: 08:53 Reassessment: A + blood type in blood work online. ld1 09:00 General: Appears in no apparent distress. uncomfortable, Behavior is calm, cooperative. jl7 Pain: Complains of pain in left lower quadrant Pain currently is 5 out of 10 on a pain scale. Quality of pain is described as pressure. Neuro: Level of Consciousness is awake, alert, obeys commands, Oriented to person, place, time, situation. Cardiovascular: Patient's skin is warm and dry. Respiratory: Airway is patent Respiratory effort is even, unlabored, Respiratory pattern is regular, symmetrical. GI: Reports lower abdominal pain. Derm: Skin is pink, warm \T\ dry. 10:00 Reassessment: Patient appears in no apparent distress at this time. Patient and/or jl7 family updated on plan of care and expected duration. Pain level reassessed. Patient is alert, oriented x 3, equal unlabored respirations, skin warm/dry/pink. Patient states symptoms have improved. Vital Signs: 08:49 BP 134 / 84; Pulse 73; Resp 18; Temp 98.2; Pulse Ox 100% on R/A; Weight 102.51 kg; ld1 Height 5 ft. 4 in. (162.56 cm); Pain 5/10; 10:14 BP 117 / 83; Pulse 69; Resp 17; Pulse Ox 98% ; jl7 08:49 Body Mass Index 38.79 (102.51 kg, 162.56 cm) ld1 ED Course: 08:43 Patient arrived in ED. rg4 08:44 Kei Umaña DO is Attending Physician. ms3 08:47 Triage completed. ld1 08:49 Arm band placed on right wrist. ld1 08:53 Virgil Carney, RN is Primary Nurse. jl7 09:00 Radiology exam delayed due to test not completed at this time. hr 09:00 Patient has correct armband on for positive identification. Placed in gown. Bed in low jl7 position. Call light in reach. Side rails up X 1. Client placed on continuous cardiac and pulse oximetry monitoring. NIBP monitoring applied. Warm blanket given. 09:20 No provider procedures requiring assistance completed. Initial lab(s) drawn, by , jlJon sent to lab. EKG done, by ED staff, reviewed by Kei Umaña DO. Inserted saline lock: 20 gauge in left antecubital area, using aseptic technique. Blood collected. 10:01 Scooby Avila DO is Referral Physician. ms3 10:25 IV discontinued, intact, bleeding controlled, No redness/swelling at site. Pressure jl7 dressing applied. Administered Medications: 10:22 Discontinued: NS 0.9% 1000 ml IV at 1000 ml once jl7 09:40 Drug: NS 0.9% 1000 ml Route: IV; Rate: 1000 ml; Site: left antecubital; jl7 10:22 Follow up: Response: No adverse reaction; IV Status: Completed infusion; IV Intake: jl7 300ml Medication: 10:00 VIS not applicable for this client. jl7 Point of Care Testing: Urine : 10:14 hCG Reading: Negative; Control Reading: Positive; jl7 Intake: 10:22 IV: 300ml; Total: 300ml. jl7 Outcome: 10:04 Discharge ordered by . ms3 10:25 Discharged to home ambulatory. jl7 10:25 Condition: stable 10:25 Discharge instructions given to patient, Instructed on discharge instructions, follow up and referral plans. Demonstrated understanding of instructions, follow-up care. 10:25 Patient left the ED. jl7 Signatures: Jennifer Chavez Rubi rg4 Virgil Carney, RN RN jl7 Kei Umaña DO DO ms3 Fern Duke, RN RN ld1
--- NOTE | 2022-09-19 10:04 | EDPHYS ---
Physician Documentation [facility] Name: Kelsey Harrell Age: 37 yrs Sex: Female : 1985 Arrival Date: 09/19/2022 Time: 08:43 Bed 4 Private MD: ED Physician Kei Umaña HPI: 09/19 08:56 This 37 yrs old Female presents to ER via Ambulatory with complaints of ms3 Vaginal Bleeding, + Preg <12wks. 08:56 37-year-old female, , with LMP of 08/15/2022, with past medical history of ms3 diabetes and neuropathy presents for vaginal spotting, lightheadedness, nausea that began yesterday. Patient denies abdominal pain or cramping at this time. Patient denies alleviating or inciting factors. Patient states she found out she was on September 15, 2022 after receiving spinal injections.. [employer]: 08:49 LMP 08/13/2022 ld1 Historical: - Allergies: 08:47 No Known Allergies; ld1 - Home Meds: 08:47 metformin 1,000 mg oral tab 2 times per day [Active]; gabapentin 300 mg oral cap 1 cap ld1 3 times per day [Active]; - PMHx: 08:47 Diabetes mellitus; Neuropathy; ld1 - PSHx: 08:47 None; ld1 - Immunization history:: Adult Immunizations up to date, Client reports having NOT received the Covid vaccine. - Social history:: Smoking status: Patient denies any tobacco usage or history of. Patient/guardian denies using alcohol. ROS: 08:56 Constitutional: Negative for fever, and chills. ENT: Negative for injury, pain, and ms3 discharge, Neck: Negative for injury, pain, and swelling, Cardiovascular: Negative for chest pain, and palpitations. Respiratory: Negative for shortness of breath, cough, wheezing, and pleuritic chest pain. 08:56 Abdomen/GI: Positive for nausea, Negative for abdominal pain. 08:56 : Positive for vaginal bleeding. 08:56 All other systems are negative. Exam: 08:56 Constitutional: This is a well developed, well nourished patient who is awake, alert, ms3 and in no acute distress. Head/Face: Normocephalic, atraumatic. Eyes: Pupils equal round and reactive to light, extra-ocular motions intact. Lids and lashes normal. Conjunctiva and sclera are non-icteric and not injected. Periorbital areas with no swelling, redness, or edema. Neck: Trachea midline, no cervical lymphadenopathy. Supple, full range of motion without nuchal rigidity, or vertebral point tenderness. No Meningismus. Chest/axilla: Normal chest wall appearance and motion. Nontender with no deformity. Cardiovascular: Regular rate and rhythm with a normal S1 and S2. No gallops, murmurs, or rubs. Normal PMI, no JVD. No pulse deficits. Respiratory: Lungs have equal breath sounds bilaterally, clear to auscultation and percussion. No rales, rhonchi or wheezes noted. No increased work of breathing, no retractions or nasal flaring. Abdomen/GI: Soft, non-tender, with normal bowel sounds. No distension or tympany. No guarding or rebound. No evidence of tenderness throughout. Skin: Warm, dry with normal turgor. Normal color with no rashes, no lesions, and no evidence of cellulitis. MS/ Extremity: Pulses equal, no cyanosis. Neurovascular intact. Full, normal range of motion. 09:30 ECG was reviewed by the Attending Physician. ms3 Vital Signs: 08:49 BP 134 / 84; Pulse 73; Resp 18; Temp 98.2; Pulse Ox 100% on R/A; Weight 102.51 kg; ld1 Height 5 ft. 4 in. (162.56 cm); Pain 5/10; 10:14 BP 117 / 83; Pulse 69; Resp 17; Pulse Ox 98% ; jl7 08:49 Body Mass Index 38.79 (102.51 kg, 162.56 cm) ld1 MDM: 08:54 Patient medically screened. ms3 08:58 Differential diagnosis: ectopic , Anemia vs Arrhythmia. ms3 10:04 Data reviewed: vital signs, nurses notes, lab test result(s), EKG, and as a result, I ms3 will. I considered the following discharge prescriptions or medication management in the emergency department Medications were administered in the Emergency Department. See MAR. Independent interpretation of the following test(s) in the Emergency Department EKG: See my EKG interpretation above. Test considered but Not performed: Ultrasound UPT negative.. Care significantly affected by the following chronic conditions: Diabetes. Counseling: I had a detailed discussion with the patient and/or guardian regarding: the historical points, exam findings, and any diagnostic results supporting the discharge/admit diagnosis, lab results, the need for outpatient follow up, to return to the emergency department if symptoms worsen or persist or if there are any questions or concerns that arise at home. ED course: Discussed labs and negative UPT with patient. Patient states symptoms have improved since receiving normal saline. Discussed with patient need to follow-up with Dr. Avila in 2 days. Patient understands and agrees with plan. All questions were answered. Return precautions discussed include worsening symptoms, or any other concerns.. 09/19 08:56 Order name: Basic Metabolic Panel; Complete Time: 09:53 ms3 09/19 08:56 Order name: CBC with Diff; Complete Time: 09:53 ms3 09/19 08:56 Order name: Quantitative Hcg; Complete Time: 09:53 ms3 09/19 09:12 Order name: Urine Dipstick-Ancillary; Complete Time: 09:53 EDMS 09/19 09:19 Order name: Urine --Ancillary (enter results); Complete Time: 09:53 bd 09/19 09:29 Order name: Glucose, Ancillary Testing; Complete Time: 09:53 EDMS 07 08:56 Order name: IV Saline Lock; Complete Time: 09:47 ms3 09/19 08:56 Order name: Labs collected and sent; Complete Time: 09:47 ms3 09/19 08:56 Order name: NPO; Complete Time: 08:59 ms3 09/19 08:59 Order name: EKG; Complete Time: 08:59 ms3 09/19 08:56 Order name: Urine Dipstick-Ancillary (obtain specimen); Complete Time: 09:48 ms3 09/19 08:56 Order name: Urine Test (obtain specimen); Complete Time: 09:48 ms3 09/19 08:59 Order name: EKG - Nurse/Tech; Complete Time: 09:50 ms3 EC:30 Rate is 66 beats/min. Rhythm is regular. QRS [place] is Normal. NC interval is normal. QRS ms3 interval is normal. Clinical impression: Normal ECG. Interpreted by me. Reviewed by me. Administered Medications: 10:22 Discontinued: NS 0.9% 1000 ml IV at 1000 ml once jl7 09:40 Drug: NS 0.9% 1000 ml Route: IV; Rate: 1000 ml; Site: left antecubital; jl7 10:22 Follow up: Response: No adverse reaction; IV Status: Completed infusion; IV Intake: jl7 300ml Point of Care Testing: Urine : 10:14 hCG Reading: Negative; Control Reading: Positive; jl7 Disposition Summary: 09/19/22 10:04 Discharge Ordered Location: Home ms3 Condition: Stable ms3 Diagnosis - Abnormal uterine and vaginal bleeding, unspecified ms3 - Lightheaded ms3 Followup: ms3 - With: Scooby Avila DO - When: 2 - 3 days - Reason: Recheck today's complaints Discharge Instructions: - Discharge Summary Sheet ms3 - Abnormal Uterine Bleeding ms3 Forms: - Medication Reconciliation Form ms3 - Thank You Letter ms3 - Antibiotic Education ms3 - Prescription Opioid Use ms3 Signatures: Dispatcher [employer] EDMS Virgil Carney RN RN jl7 Kei Umaña DO DO ms3 Fern Duke RN RN ld1 Corrections: (The following items were deleted from the chart) 09:28 08:57 Transvaginal Ob+US.RAD.BRZ ordered. EDMS EDMS 09:29 08:57 OB Limited+US.RAD.BRZ ordered. EDMS EDMS 09:46 09:28 Transvaginal Study Probe ordered. EDMS EDMS
[2022-09-19 10:42] VITALS: TEMP 98.2
[2022-09-19 11:05] VITALS: BP 117/83; O2SAT 98
== END 2022-09-19 10:25 | disposition home or self-care (01) ==
LOC: ER 08:40
DX: N93.9 Abnormal uterine and vaginal bleeding, unspecified (principal); R42 Dizziness and giddiness; E11.9 Type 2 diabetes mellitus without complications
CPT/HCPCS: 85025; 80048; 36415; 81025; 82947; 84702; 81003; J7030; 93005

== ENCOUNTER 2022-10-03 14:38 | Emergency (ER) | payer OTHER ==
--- OUTSIDE RECORDS SUMMARY | 2022-10-03 15:07 | XMS REPORT | Continuity of Care Document ---
:1985 Author Organization [facility] t Address [address] [place] [address] Care Team Providers Name Role Phone Holly Herrera Primary Care Physician AZALIA MICHEL Attending Clinician Unavailable CURTIS MORLEY Attending Clinician Unavailable NORBERT DIAZ Attending Clinician Unavailable NORBERT DIAZ Attending Clinician Unavailable EZ PALACIO Attending Clinician Unavailable EZ PALACIO Attending Clinician Unavailable HOLLY ELMORE Attending Clinician Unavailable RICHA DOMINGUEZ Attending Clinician Unavailable RICHA DOMINGUEZ Attending Clinician Unavailable BETH PHAM Attending Clinician Unavailable HARJINDER MEYER Attending Clinician Unavailable CAROL SIERRA Attending Clinician Unavailable Holly Herrera Attending Clinician Doctor Unassigned, [place] Attending Clinician Unavailable Radha Andrade Attending Clinician Taylor Verdin MD Attending Clinician [phone] TAYLOR VERDIN Attending Clinician Unavailable Lana Scott RN Attending Clinician Unavailable Curtis Morley MD Attending Clinician Beth Rodriguez Attending Clinician Argentina Looney MD Attending Clinician ARGENTINA LOONEY Attending Clinician Unavailable Lab, Ang - Db Attending Clinician Unavailable Bia Mccann Attending Clinician SKYLER FERRARI Attending Clinician Unavailable SKYLER FERRARI Attending Clinician Unavailable Vega CHONG, Skyler Aquino Attending Clinician CAMILO CORLEY Attending Clinician Unavailable Jory CHONG, Camilo Lobo Attending Clinician [phone] Lab, [facility] [address] Attending Clinician Unavailable RADHA TRINIDAD Attending Clinician Unavailable Azalia Michel MD Attending Clinician Olu MCMANUSP, Ashley Attending Clinician Catalina Mendez PA-C Attending Clinician [phone] Kristi CHONG, Byron Ward Attending Clinician Only, Adc Test Attending Clinician Unavailable Luna MCMANUSP, [place] Attending Clinician Rene Olvera MD Attending Clinician SAMINA BOOKER Attending Clinician Unavailable Jhony CROWDER, Samina Umanzor Attending Clinician Unknown, Attending Attending Clinician Unavailable Nurse, [facility] Adult Urgent Attending Clinician Unavailable Therapy, [facility] Covid Infusion Attending Clinician Unavailable Tejinder Valles MD Attending Clinician TEJINDER VALLES Attending Clinician Unavailable ASHLEY RAINES Attending Clinician Unavailable Alicja MCMANUSP, Ever Attending Clinician [phone] UNKNOWN, ATTENDING Attending Clinician Unavailable Theo CHONG, Barrington Bellamy Attending Clinician CATALINA MENDEZ Attending Clinician Unavailable HEATH JOHNSON Attending Clinician Unavailable Brady Ivy MD Attending Clinician Amando De La Rosa MD Attending Clinician Elena LAWLER, Norma Burch Attending Clinician Unavailable [place] Attending Clinician Unavailable [facility] Attending Clinician Unavailable Care, Gal Adult Urgent Attending Clinician Unavailable Emeli MCMANUSP, Cait Attending Clinician Vineet CROWDER, Monika Vogel Attending Clinician [phone] EMILY OBRIEN Attending Clinician Unavailable [facility] Resident Attending Clinician Unavailable Jenny Avila MD Attending Clinician Taurus Guadalupe MD Attending Clinician TAURUS GUADALUPE Attending Clinician Unavailable Mack ETIENNE Tacoscharlotte Moseley Attending Clinician Only, Pcp Test Attending Clinician Unavailable Emily Fay Attending Clinician Edel CROWDER, Aiyana Attending Clinician Chan Souza MD Attending Clinician [facility] Attending Clinician Unavailable Micheline Mixon MD Attending Clinician MICHELINE MIXON Attending Clinician Unavailable AIYANA HOLLINGSWORTH Attending Clinician Unavailable Andrea Galeano PTA, Maki A Attending Clinician Unavailsandhya Kang MD, Brady Umanzor Attending Clinician Bessie Alexandre RN Attending Clinician Unavailable Fellow, Cardiology Attending Clinician Unavailable Anderson SEED CLEANING MACHINE OPERATOR, Octavio L Attending Clinician ANDERSON, OCTAVIO L Attending Clinician Unavailable Cody TELLEZ, Rain Attending Clinician Unavailable BRADY KANG Attending Clinician Unavailable Lucille Banks LPC Attending Clinician LUCILLE BANKS Attending Clinician Unavailable Selena Ace MD Attending Clinician Seb LAWLER, Tony Attending Clinician Unavailable Keri Yee MD Attending Clinician Norbert Diaz MD Attending Clinician Pcp, Patient Does Not Have A Attending Clinician [phone] Gordy Corbett MD Attending Clinician GORDY CORBETT [...] Clinician Unavailable CAMILO CORLEY Admitting Clinician Unavailable Azalia Michel MD Admitting Clinician Curtis Morley MD Admitting Clinician Norbert Diaz MD Admitting Clinician APPLE BROWN Admitting Clinician Unavailable Payers Payer Name Policy Type Policy Number Effective Date Expiration Date [facility] [id number] 2020 00:00:00 Problems Condition Condition Condition Status Onset Resolution Last Treating Co mments Source Name Details Category Date Date Treatment Clinician Date Sleep Sleep Disease Active Univers difficulti difficulti 2-09 it y of es es 00:00: [place] [facility] Chronic Chronic Disease Active Univers fatigue fatigue 2- ity of 00:00: [place] [facility] Chronic Chronic Disease Active Univers nausea nausea 2- ity of 00:00: [address] 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 [facility] Patient Patient Disease Active Univers desires desires 1-03 [place] [facility] Hirsutism Hirsutism Disease Active 2021-08 Uni vers 2-21 ity of 00:00: [place] [facility] Encounter Encounter Disease Active 2021-08 Uni vers for for 2-05 [place] Med[place]irmal metabolic metabolic Bran ch disorders disorders Vaginal Vaginal Disease Active 2021-08 Univers discharge discharge 2-05 ity of 00:00: [address] Missed Missed Disease Active 2021-08 Univers menses menses 2-05 ity of 00:00: [place] 00 [facility] Pain Pain Disease Active 2021-08 Univers pelvic pelvic 2-05 ity of 00:00: [place] 00 [facility] History of History of Disease Active 2021-08 U nivers PCOS PCOS 2-05 ity of 00:00: [place] 00 Medical [facility] Irregular Irregular Disease Active 2021-08 Uni vers menstrual menstrual 2-05 ity of cycle cycle 00:00: [place] 00 Medical [facility] External External Disease Active Unive rs hemorrhoid hemorrhoid 5-17 it y of s s 00:00: [place] 00 Medical Branch Grade II Grade II Disease Active Overview: Un joby internal internal 5-14 Formattin ity of hemorrhoid hemorrhoid 00:00: g of this [place] s s 00 note Medical might be Branch different from the original. Added automatic ally from request for surgery [id number] Sacroiliit Sacroiliit Disease Active Overview : Univers is is 2-11 Formattin ity of 00:00: g of this [place] 00 note Medical might be Branch different from the original. Added automatic ally from request for surgery [id number] Loose Loose Disease Active 2019-08 Overview: Univer s stools stools 0-02 Formattin ity of 00:00: g of this [place] 00 note Medical might be Branch different from the original. Added automatic ally from request for surgery [id number] Blood in Blood in Disease Active 2019-08 Overview: Un joby stool stool 0-02 Formattin ity of 00:00: g of this [place] 00 note Medical might be Branch different from the original. Added automatic ally from request for surgery [id number] Pre-eclamp Pre-eclamp Disease Active U nivers teodora [...] diabetes mellitus mellitus BMI BMI Disease Active 2017-0 Univers 37.0-37.9, 37.0-37.9, 5-21 it y of adult adult 00:00: [place] 00 [facility] Chronic Chronic Disease Active Univers bilateral bilateral 8-21 ity of low back low back 00:00: [place] pain pain 00 Medical without without Branch sciatica sciatica Bronchitis Bronchitis Disease Active Overview : Univers Formattin ity of g of this [place] note Medical might be Branch different from the original. COPD v. asthma Anxiety Anxiety Disease Active Univers ity of [facility] Fatty Fatty Disease Active Univers liver liver ity of [facility] Allergies, Adverse Reactions, Alerts Allergy Allergy Status Severity Reaction(s) Onset Inactive Treating Comm ents Source Name Type Date Date Clinician Latex Propensi Active Rash 2005- Univers ty to - ity of adverse 00:00: [place] reaction 00 Medical s Branch LATEX DRUG Active Rash Univers INGREDI 12-06 ity of 00:00: [place] 00 [facility] Social History Social Habit Start Date Stop Date Quantity Comments Source Exposure to 2022-09-11 2022-09-21 Not sure [facility] SARS-CoV-2 (event) 00:00:00 08:04:00 [facility] Cigarettes smoked 2022-09-21 2022-09-21 Univers ity of current (pack per 00:00:00 00:00:00 [place] ) - Reported Branch Cigarette 2022-09-21 2022-09-21 University of pack-years 00:00:00 00:00:00 [facility] Tobacco use and 2022-09-21 2022-09-21 Smokeless Universit y of exposure 00:00:00 00:00:00 tobacco non-user [facility] dical Branch Alcohol intake 2022-09-21 2022-09-21 Current University of 00:00:00 00:00:00 non-drinker of [facility] alcohol Branch (finding) Tobacco Comment 2022-05-16 2022-05-16 vapes Universit y of 00:00:00 00:00:00 [facility] History of tobacco 2016-12-31 2020-07-20 Cigarette Smoker University of use 00:00:00 00:00:00 [facility] Sex Assigned At [address] [facility]00 [facility] Smoking Status Start Date Stop Date Source Ex-smoker 2022-09-21 00:00:00 2022-09-21 00:00:00 [facility] Medications Ordered Filled Start Stop Current Ordering Indication Dosage Frequency Signature Comments Components Source Medication Medication Date Date Medication? Clinician (SIG) Name Name escitalopra Yes [id number] 20mg Take 1 Univers m oxalate 2-21 tablet by ity o f (LEXAPRO) [place] 00 the Medical tablet morning. Branch escitalopra Yes [id number] 20mg Take 1 Univers m oxalate 2-21 tablet by ity o f (LEXAPRO) [place] 00 the Medical tablet morning. Branch tiZANidine 2022-0 Yes [id number] 4mg Take 1 Univers 4 mg tablet 2-20 9100 tablet by ity of 00:00: mouth 3 (three) Medical times Branch daily as needed (muscle spasm). tiZANidine 2022-0 Yes [id number] 4mg Take 1 Univers 4 mg tablet 2-20 9100 tablet by ity of 00:00: mouth 3 (three) Medical times Branch daily as needed (muscle spasm). tiZANidine 3-0 Yes [id number] 4mg Take 1 Univers 4 mg tablet 2-20 9100 tablet by ity of 00:00: mouth 3 (three) Medical times Branch daily as needed (muscle spasm). tiZANidine 2022-0 Yes [id number] 4mg Take 1 Univers 4 mg tablet 2-20 9100 tablet by ity of 00:00: mouth 3 (three) Medical times Branch daily as needed (muscle spasm). tiZANidine 2022-0 Yes [id number] 4mg Take 1 Univers 4 mg tablet 2-20 9100 tablet by ity of 00:00: mouth 3 (three) Medical times Branch daily as needed (muscle spasm). busPIRone 5 2022- Yes [id number] 5mg Take 1 Univers mg tablet 2-09 tablet by ity o f 00:00: mouth 2 (two) Medical times Branch daily as needed (anxiety). atorvastati 0 Yes [id number] 20mg Take 1 Univers n 20 mg 2-09 tablet by ity of tablet 00:00: mouth at 00 bedtime. Medical Branch busPIRone 5 0 Yes [id number] 5mg Take 1 Univers mg tablet 2-09 tablet by ity o f 00:00: mouth 2 (two) Medical times Branch daily as needed (anxiety). atorvastati 0 Yes [id number] 20mg Take 1 Univers n 20 mg 2-09 tablet by ity of tablet 00:00: mouth at [place] 00 bedtime. Medical Branch busPIRone 5 0 Yes [id number] 5mg Take 1 Univers mg tablet 2-09 tablet by ity o f 00:00: mouth 2 (two) Medical times Branch daily as needed (anxiety). atorvastati Yes [id number] 20mg Take 1 Univers n 20 mg 2-09 tablet by ity of tablet 00:00: mouth at [place] 00 bedtime. Medical Branch busPIRone 5 0 Yes [id number] 5mg Take 1 Univers mg tablet 2-09 tablet by ity o f 00:00: mouth 2 (two) Medical times Branch daily as needed (anxiety). atorvastati 0 Yes [id number] 20mg Take 1 Univers n 20 mg 2-09 tablet by ity of tablet 00:00: mouth at [place] 00 bedtime. Medical Branch busPIRone 5 0 Yes [id number] 5mg Take 1 Univers mg tablet 2-09 tablet by ity o f 00:00: mouth 2 (two) Medical times Branch daily as needed (anxiety). atorvastati 0 Yes [id number] 20mg Take 1 Univers n 20 mg 2-09 tablet by ity of tablet 00:00: mouth at [place] 00 bedtime. Medical Branch busPIRone 5 0 Yes [id number] 5mg Take 1 Univers mg tablet 2-09 tablet by ity o f 00:00: mouth 2 (two) Medical times Branch daily as needed (anxiety). atorvastati 2022-0 Yes [id number] 20mg Take 1 Univers n 20 mg 2-09 tablet by ity of tablet 00:00: mouth at [place] 00 bedtime. Medical Branch busPIRone 5 Yes [id number] 5mg Take 1 Univers mg tablet 2-09 tablet by ity o f 00:00: mouth 2 (two) Medical times Branch daily as needed (anxiety). atorvastati Yes [id number] 20mg Take 1 Univers n 20 mg 2-09 tablet by ity of tablet 00:00: mouth at [place] 00 bedtime. Medical Branch bupivacaine 2022- No [id number] 4mL Univers (preserv 09-15 ity of free) 17:15: 17:19 [place] (SENSORCAIN 00 :00 Medical E MPF) 0.25 Branch % (2.5 mg/mL) injection 4 mL lidocaine 2022- No [id number] 14mL Un joby 1% (PF) 09-15 ity of (XYLOCAINE) 17:15: 17:06 [place] injection 00 :00 Medical 14 mL Branch triamcinolo 2022- No [id number] 80mg Univers ne 09-15- ity of acetonide 17:15: 17:12 [place] (KENALOG) 00 :00 Medical injection Branch 80 mg triamcinolo 2022- No [id number] 80mg 80 mg, Univers ne 09-15 Infiltrati ity of acetonide 17:15: 17:12 [place] :00 1 dose, On Medi nirmal injection 09/15/22 Bran ch 80 mg at 1115, Routine lidocaine 2022- No [id number] 14mL 14 mL, Univers 1% (PF) 09-15- Infiltrati ity o f (XYLOCAINE) 17:15: 17:06 on, ONCE, [place] injection 00 :00 1 dose, On Medi nirmal 14 mL 09/15/22 Branch at 1115, Routine bupivacaine 2022- No [id number] 4mL 4 mL, Univers (preserv 09-15 Infiltrati ity of free) 17:15: 17:19 on, ONCE, [place] (SENSORCAIN 00 :00 1 dose, On Me dical E MPF) 0.25 Sun09/15/22 Br anch % (2.5 at 1115, mg/mL) Routine injection 4 mL bupivacaine 0 2022- No [id number] 4mL Univers (preserv 09-15 ity of free) 17:15: 17:19 [place] (SENSORCAIN 00 :00 Medical E MPF) 0.25 Branch % (2.5 mg/mL) injection 4 mL lidocaine 2022- No [id number] 14mL Un joby 1% (PF) 09-15 ity of (XYLOCAINE) 17:15: 17:06 [place] injection 00 :00 Medical 14 mL Branch triamcinolo 2022- No [id number] 80mg Univers ne 09-15 ity of acetonide 17:15: 17:12 [place] (KENALOG) 00 :00 Medical injection Branch 80 mg triamcinolo 2022- No [id number] 80mg 80 mg, Univers ne 09-15 Infiltrati ity of acetonide 17:15: 17:12 [place] 00 :00 1 dose, On Medi nirmal injection Sun09/15/22 Bran ch 80 mg at 1115, Routine lidocaine 2022- No [id number] 14mL 14 mL, Univers 1% (PF) 09-15 Infiltrati ity o f (XYLOCAINE) 17:15: 17:06 on, ONCE, [place] injection 00 :00 1 dose, On Medi nirmal 14 mL Sun09/15/22 Branch at 1115, Routine bupivacaine 2022- No [id number] 4mL 4 mL, Univers (preserv 09-15 Infiltrati ity of free) 17:15: 17:19 on, ONCE, [place] (SENSORCAIN 00 :00 1 dose, On Me dical E MPF) 0.25 09/15/22 Br anch % (2.5 at 1115, mg/mL) Routine injection 4 mL lactated 2022-0 2022- No [id number] 500mL Un joby ringers IV 09-15 ity of infusion 16:45: 17:06 [place] 500 mL 00 :00 Medical Branch lactated 2022-0 3- No [id number] 500mL at 20 U nivers ringers IV 2-03 02-03 mL/hr, 500 it y of infusion 16:45: 17:06 mL, IV [place] 500 mL 00 :00 Infusion, Medical ONCE, 1 Branch dose, On Sun09/15/22 at 1045, Routine lactated 2022-0 3- No [id number] 500mL Un joby ringers IV 2- 02-03 ity of infusion 16:45: 17:06 [place] 500 mL 00 :00 Medical Branch lactated 2022-0 3- No [id number] 500mL at 20 U nivers ringers IV 2- 02-03 mL/hr, 500 it y of infusion 16:45: 17:06 mL, IV [place] 500 mL 00 :00 Infusion, Medical ONCE, 1 Branch dose, On Sun09/15/22 at 1045, Routine meloxicam 2022-0 Yes 15mg Take 1 Univer s 15 mg 2-03 tablet by ity of tablet 00:00: mouth in [place] 00 the Medical morning. Branch meloxicam 2022-0 Yes 15mg Take 1 Univer s 15 mg 2-03 tablet by ity of tablet 00:00: mouth in [place] 00 the Medical morning. Branch meloxicam 2022-0 Yes [id number] 15mg Take 1 U nivers 15 mg 2-03 tablet by ity of tablet 00:00: mouth in [place] 00 the Medical morning. Branch meloxicam 2022-0 Yes [id number] 15mg Take 1 U nivers 15 mg 2-03 tablet by ity of tablet 00:00: mouth in [place] 00 the Medical morning. Branch meloxicam 2022-0 Yes [id number] 15mg Take 1 U nivers 15 mg 2-03 tablet by ity of tablet 00:00: mouth in [place] 00 the Medical morning. Branch meloxicam 2022-0 Yes [id number] 15mg Take 1 U nivers 15 mg 2-03 tablet by ity of tablet 00:00: mouth in [place] 00 the Medical morning. Branch meloxicam 2022-0 Yes [id number] 15mg Take 1 U nivers 15 mg 2-03 tablet by ity of tablet 00:00: mouth in [place] 00 the Medical morning. Branch meloxicam 2022-0 Yes [id number] 15mg Take 1 U nivers 15 mg 2-03 tablet by ity of tablet 00:00: mouth in [place] 00 the Medical morning. Branch meloxicam 2022-0 Yes [id number] 15mg Take 1 U nivers 15 mg 2-03 tablet by ity of tablet 00:00: mouth in [place] 00 the Medical morning. Branch meloxicam 2022-0 Yes [id number] 15mg Take 1 U nivers 15 mg 2-03 tablet by ity of tablet 00:00: mouth in [place] 00 the Medical morning. Branch meloxicam 2022-0 Yes [id number] 15mg Take 1 U nivers 15 mg 2-03 tablet by ity of tablet 00:00: mouth in [place] 00 the Medical morning. Branch meloxicam 2022-0 Yes [id number] 15mg Take 1 U nivers 15 mg 2-03 tablet by ity of tablet 00:00: mouth in [place] the Medical morning. Branch meloxicam 2022-0 Yes [id number] 15mg Take 1 U nivers 15 mg 2-03 tablet by ity of tablet 00:00: mouth in [place] the Medical morning. Branch meloxicam 2022-0 Yes [id number] 15mg Take 1 U nivers 15 mg 2-03 tablet by ity of tablet 00:00: mouth in [place] the Medical morning. Branch meloxicam 2022-0 Yes [id number] 15mg Take 1 U nivers 15 mg 2-03 tablet by ity of tablet 00:00: mouth in [place] 00 the Medical morning. Branch meloxicam 2022-0 Yes [id number] 15mg Take 1 U nivers 15 mg 2-03 tablet by ity of tablet 00:00: mouth in [place] the Medical morning. Branch meloxicam 2022-0 Yes [id number] 15mg Take 1 U nivers 15 mg 2-03 tablet by ity of tablet 00:00: mouth in [place] 00 the Medical morning. Branch meloxicam 2022-0 Yes [id number] 15mg Take 1 U nivers 15 mg 2-03 tablet by ity of tablet 00:00: mouth in [place] 00 the Medical morning. Branch semaglutide 2022-0 Yes [id number] 1mg inject 1 Univers (OZEMPIC) 1 2-01 mg under ity of mg/dose (4 00:00: the skin [place] as mg/3 mL) 00 weekly. [facility] pioglitazon 2022-0 Yes [id number] 30mg Take 1 Univers e 30 mg 2-01 tablet by ity of tablet 00:00: mouth in [place] the morning. Branch metFORMIN 2022-0 Yes [id number] 1000mg Take 1 Univers 1,000 mg 2-01 tablet by ity of tablet 00:00: mouth in [place] the morning Branch and 1 tablet in the evening. Take with meals. semaglutide 2022-0 Yes [id number] 1mg inject 1 Univers (OZEMPIC) 1 2-01 mg under ity of mg/dose (4 00:00: the [place] mg/3 mL) 00 weekly. [facility] pioglitazon 2022-0 Yes [id number] 30mg Take 1 Univers e 30 mg 2-01 tablet by ity of tablet 00:00: mouth in [place] the morning. Branch metFORMIN 2022-0 Yes [id number] 1000mg Take 1 Univers 1,000 mg 2-01 tablet by ity of tablet 00:00: mouth in [place] the morning Branch and 1 tablet in the evening. Take with meals. semaglutide 2022-0 Yes [id number] 1mg inject 1 Univers (OZEMPIC) 1 2-01 mg under ity of mg/dose (4 00:00: the skin [place] mg/3 mL) 00 weekly. [facility] pioglitazon 2022-0 Yes [id number] 30mg Take 1 Univers e 30 mg 2-01 tablet by ity of tablet 00:00: mouth in [place] the morning. Branch metFORMIN 2022-0 Yes [id number] 1000mg Take 1 Univers 1,000 mg 2-01 tablet by ity of tablet 00:00: mouth in [place] the morning Branch and 1 tablet in the evening. Take with meals. semaglutide 2022-0 Yes [id number] 1mg inject 1 Univers (OZEMPIC) 1 2-01 mg under ity of mg/dose (4 00:00: the [place] mg/3 mL) 00 weekly. [facility] pioglitazon 2022-0 Yes [id number] 30mg Take 1 Univers e 30 mg 2-01 tablet by ity of tablet 00:00: mouth in [place] the morning. Branch metFORMIN 2022-0 Yes [id number] 1000mg Take 1 Univers 1,000 mg 2-01 tablet by ity of tablet 00:00: mouth in [place] the morning Branch and 1 tablet in the evening. Take with meals. semaglutide 2022-0 Yes [id number] 1mg inject 1 Univers (OZEMPIC) 1 2-01 mg under ity of mg/dose (4 00:00: the skin [place] as mg/3 mL) 00 weekly. [facility] pioglitazon 2022-0 Yes [id number] 30mg Take 1 Univers e 30 mg 2-01 tablet by ity of tablet 00:00: mouth in [place] the morning. Branch metFORMIN 2022-0 Yes [id number] 1000mg Take 1 Univers 1,000 mg 2-01 tablet by ity of tablet 00:00: mouth in [place] the morning Branch and 1 tablet in the evening. Take with meals. semaglutide 2022-0 Yes [id number] 1mg inject 1 Univers (OZEMPIC) 1 2-01 mg under ity of mg/dose (4 00:00: the [place] mg/3 mL) 00 weekly. [facility] pioglitazon 2022-0 Yes [id number] 30mg Take 1 Univers e 30 mg 2-01 tablet by ity of tablet 00:00: mouth in [place] the morning. Branch metFORMIN 2022-0 Yes [id number] 1000mg Take 1 Univers 1,000 mg 2-01 tablet by ity of tablet 00:00: mouth in [place] the morning Branch and 1 tablet in the evening. Take with meals. semaglutide 2022-0 Yes [id number] 1mg inject 1 Univers (OZEMPIC) 1 2-01 mg under ity of mg/dose (4 00:00: the skin [place] as mg/3 mL) 00 weekly. [facility] pioglitazon 2022-0 Yes [id number] 30mg Take 1 Univers e 30 mg 2-01 tablet by ity of tablet 00:00: mouth in [place] the morning. Branch metFORMIN 2022-0 Yes [id number] 1000mg Take 1 Univers 1,000 mg 2-01 tablet by ity of tablet 00:00: mouth in [place] the Medical morning Branch and 1 tablet in the evening. Take with meals. semaglutide 3-0 Yes [id number] 1mg inject 1 Univers (OZEMPIC) 1 2-01 mg under ity of mg/dose (4 00:00: the [place] mg/3 mL) 00 weekly. [facility] pioglitazon 3-0 Yes [id number] 30mg Take 1 Univers e 30 mg 2-01 tablet by ity of tablet 00:00: mouth in [place] the morning. Branch metFORMIN 2022-0 Yes [id number] 1000mg Take 1 Univers 1,000 mg 2-01 tablet by ity of tablet 00:00: mouth in [place] the morning Branch and 1 tablet in the evening. Take with meals. semaglutide 3-0 Yes [id number] 1mg inject 1 Univers (OZEMPIC) 1 2-01 mg under ity of mg/dose (4 00:00: the [place] as mg/3 mL) 00 weekly. [facility] pioglitazon 3-0 Yes [id number] 30mg Take 1 Univers e 30 mg 2-01 tablet by ity of tablet 00:00: mouth in [place] the morning. Branch metFORMIN 3-0 Yes [id number] 1000mg Take 1 Univers 1,000 mg 2-01 tablet by ity of tablet 00:00: mouth in [place] the morning Branch and 1 tablet in the evening. Take with meals. semaglutide 3-0 Yes [id number] 1mg inject 1 Univers (OZEMPIC) 1 2-01 mg under ity of mg/dose (4 00:00: the skin [place] as mg/3 mL) 00 weekly. [facility] pioglitazon 3-0 Yes [id number] 30mg Take 1 Univers e 30 mg 2-01 tablet by ity of tablet 00:00: mouth in [place] the morning. Branch metFORMIN 3-0 Yes [id number] 1000mg Take 1 Univers 1,000 mg 2-01 tablet by ity of tablet 00:00: mouth in [place] [address] the morning Branch and 1 tablet in the evening. Take with meals. semaglutide 2023-0 Yes [id number] 1mg inject 1 Univers (OZEMPIC) 1 2-01 mg under ity of mg/dose (4 00:00: the skin [place] as mg/3 mL) 00 weekly. [facility] pioglitazon 2022-0 Yes [id number] 30mg Take 1 Univers e 30 mg 2-01 tablet by ity of tablet 00:00: mouth in [place] the morning. Branch metFORMIN 2022-0 Yes [id number] 1000mg Take 1 Univers 1,000 mg 2-01 tablet by ity of tablet 00:00: mouth in [place] the morning Branch and 1 tablet in the evening. Take with meals. semaglutide 2022-0 Yes [id number] 1mg inject 1 Univers (OZEMPIC) 1 2-01 mg under ity of mg/dose (4 00:00: the skin [place] mg/3 mL) 00 weekly. [facility] pioglitazon 2022-0 Yes [id number] 30mg Take 1 [facility] e 30 mg 2-01 tablet by ity of tablet 00:00: mouth in [place] the morning. Branch metFORMIN 2022-0 Yes [id number] 1000mg Take 1 [facility] 1,000 mg 2-01 tablet by ity of tablet 00:00: mouth in [place] the morning Branch and 1 tablet in the evening. Take with meals. semaglutide 2022-0 Yes [id number] 1mg inject 1 [facility] (OZEMPIC) 1 2-01 mg under ity of mg/dose (4 00:00: the skin [place] mg/3 mL) 00 weekly. [facility] pioglitazon 2022-0 Yes [id number] 30mg Take 1 [facility] e 30 mg 2-01 tablet by ity of tablet 00:00: mouth in [place] the morning. Branch metFORMIN 2022-0 Yes [id number] 1000mg Take 1 [facility] 1,000 mg 2-01 tablet by ity of tablet 00:00: mouth in [place] the morning Branch and 1 tablet in the evening. Take with meals. semaglutide 2022-0 Yes [id number] 1mg inject 1 [facility] (OZEMPIC) 1 2-01 mg under ity of mg/dose (4 00:00: the skin [place] mg/3 mL) 00 weekly. [facility] pioglitazon 2022-0 Yes [id number] 30mg Take 1 [facility] e 30 mg 2-01 tablet by ity of tablet 00:00: mouth in [place] the morning. Branch metFORMIN 2022-0 Yes [id number] 1000mg Take 1 [facility] 1,000 mg 2-01 tablet by ity of tablet 00:00: mouth in [place] the morning Branch and 1 tablet in the evening. Take with meals. semaglutide 2022-0 Yes [id number] 1mg inject 1 [facility] (OZEMPIC) 1 2-01 mg under ity of mg/dose (4 00:00: the skin [place] mg/3 mL) 00 weekly. [facility] pioglitazon 2022-0 Yes [id number] 30mg Take 1 [facility] e 30 mg 2-01 tablet by ity of tablet 00:00: mouth in [place] the morning. Branch metFORMIN 2022-0 Yes [id number] 1000mg Take 1 [facility] 1,000 mg 2-01 tablet by ity of tablet 00:00: mouth in [place] the morning Branch and 1 tablet in the evening. Take with meals. semaglutide 2022-0 Yes [id number] 1mg inject 1 [facility] (OZEMPIC) 1 2-01 mg under ity of mg/dose (4 00:00: the skin [place] mg/3 mL) 00 weekly. [facility] pioglitazon 2022-0 Yes [id number] 30mg Take 1 [facility] e 30 mg 2-01 tablet by ity of tablet 00:00: mouth in [place] the morning. Branch metFORMIN 2022-0 Yes [id number] 1000mg Take 1 [facility] 1,000 mg 2-01 tablet by ity of tablet 00:00: mouth in [place] the morning Branch and 1 tablet in the evening. Take with meals. semaglutide 2022-0 Yes [id number] 1mg inject 1 [facility] (OZEMPIC) 1 2-01 mg under ity of mg/dose (4 00:00: the skin [place] mg/3 mL) 00 weekly. [facility] pioglitazon 2022-0 Yes [id number] 30mg Take 1 [facility] 30 mg 2-01 tablet by ity of tablet 00:00: mouth in [place] the morning. Branch metFORMIN 2022-0 Yes [id number] 1000mg Take 1 [facility] 1,000 mg 2-01 tablet by ity of tablet 00:00: mouth in [place] the Medical morning Branch and 1 tablet in the evening. Take with meals. semaglutide 2022-0 Yes [id number] 1mg inject 1 [facility] (OZEMPIC) 1 2-01 mg under ity of mg/dose (4 00:00: the skin [place] mg/3 mL) 00 weekly. [facility] pioglitazon 2022-0 Yes [id number] 30mg Take 1 [facility] e 30 mg 2-01 tablet by ity of tablet 00:00: mouth in [place] the morning. Branch metFORMIN 2022-0 Yes [id number] 1000mg Take 1 [facility] 1,000 mg 2-01 tablet by ity of tablet 00:00: mouth in [place] the morning Branch and 1 tablet in the evening. Take with meals. semaglutide 2022-0 Yes [id number] 1mg inject 1 [facility] (OZEMPIC) 1 2-01 mg under ity of mg/dose (4 00:00: the skin [place] mg/3 mL) 00 weekly. [facility] pioglitazon 2022-0 Yes [id number] 30mg Take 1 [facility] e 30 mg 2-01 tablet by ity of tablet 00:00: mouth in [place] the morning. Branch metFORMIN 2022-0 Yes [id number] 1000mg Take 1 [facility] 1,000 mg 2-01 tablet by ity of tablet 00:00: mouth in [place] the morning Branch and 1 tablet in the evening. Take with meals. semaglutide 2022-0 Yes [id number] 1mg inject 1 [facility] (OZEMPIC) 1 2-01 mg under ity of mg/dose (4 00:00: the skin [place] mg/3 mL) 00 weekly. [facility] pioglitazon 2022-0 Yes [id number] 30mg Take 1 [facility] e 30 mg 2-01 tablet by ity of tablet 00:00: mouth in [place] the morning. Branch metFORMIN 2022-0 Yes [id number] 1000mg Take 1 [facility] 1,000 mg 2-01 tablet by ity of tablet 00:00: mouth in [place] [address] the Medical morning Branch and 1 tablet in the evening. Take with meals. semaglutide 3-0 Yes [id number] 1mg inject 1 [facility] (OZEMPIC) 1 2-01 mg under ity of mg/dose (4 00:00: the skin [place] mg/3 mL) 00 weekly. Medical [facility] Branch pioglitazon Yes [id number] 30mg Take 1 [facility] e 30 mg 2-01 tablet by ity of tablet 00:00: mouth in [place] 00 the Medical morning. Branch metFORMIN Yes [id number] 1000mg Take 1 [facility] 1,000 mg 2-01 tablet by ity of tablet 00:00: mouth in [place] 00 the Medical morning Branch and 1 tablet in the evening. Take with meals. semaglutide Yes [id number] 1mg inject 1 [facility] (OZEMPIC) 1 2-01 mg under ity of mg/dose (4 00:00: the skin [place] mg/3 mL) 00 weekly. Medical [facility] Branch pioglitazon Yes [id number] 30mg Take 1 [facility] 30 mg 2-01 tablet by ity of tablet 00:00: mouth in [place] 00 the Medical morning. Branch metFORMIN Yes [id number] 1000mg Take 1 [facility] 1,000 mg 2-01 tablet by ity of tablet 00:00: mouth in [place] 00 the Medical morning Branch and 1 tablet in the evening. Take with meals. pioglitazon 2022- No [id number] 30mg Take 1 [facility] e 30 mg 2-08 14- tablet by ity of tablet 00:00: 00:00 mouth in [place] 00 :00 the Medical morning. Branch tirzepatide 2022- No [id number] 2.5mg inject 2.5 [facility] (MOUNJARO) 2- 02-01 mg under ity of 2.5 mg/0.5 00:00: 00:00 the skin [place] mL PnIj 00 :00 weekly. Medical Branch pioglitazon 2022- No [id number] 30mg Take 1 [facility] e 30 mg 2-08 14- tablet by ity of tablet 00:00: 00:00 mouth in [place] 00 :00 the Medical morning. Branch pioglitazon 2022- No [id number] 30mg Take 1 [facility] e 30 mg 2-08 14- tablet by ity of tablet 00:00: 00:00 mouth in [place] 00 :00 the Medical morning. Branch tirzepatide 2022- No [id number] 2.5mg inject 2.5 [facility] (MOUNJARO) 09-13 mg under ity of 2.5 mg/0.5 00:00: 00:00 the skin [place] mL PnIj 00 :00 weekly. Medical Branch pioglitazon 2022- No [id number] 30mg Take 1 [facility] e 30 mg 09-13 tablet by ity of tablet 00:00: 00:00 mouth in [place] 00 :00 the Medical morning. Branch ONDANSETRON Yes Take by Uni vers HCL ORAL 1-31 mouth. ity of 09:40: [place] [address] Medical Branch ONDANSETRON Yes Take by Uni vers HCL ORAL 1-31 mouth. ity of 09:40: [place] [address] Medical Branch ONDANSETRON Yes Take by Uni vers HCL ORAL 1-31 mouth. ity of 09:40: [place] [address] Medical Branch ONDANSETRON Yes Take by [facility] vers HCL ORAL 1-31 mouth. ity of 09:40: [place] [address] Medical Branch ONDANSETRON Yes Take by [facility] vers HCL ORAL 1-31 mouth. ity of 09:40: [place] [address] Medical Branch ONDANSETRON Yes Take by [facility] vers HCL ORAL 1-31 mouth. ity of 09:40: [place] [address] Medical Branch ONDANSETRON Yes Take by [facility] vers HCL ORAL 1-31 mouth. ity of 09:40: [place] [address] Medical Branch ONDANSETRON Yes Take by [facility] vers HCL ORAL 1-31 mouth. ity of 09:40: [place] [address] Medical Branch ONDANSETRON Yes Take by [facility] vers HCL ORAL 1-31 mouth. ity of 09:40: [place] [address] Medical Branch ONDANSETRON Yes Take by [facility] vers HCL ORAL 1-31 mouth. ity of 09:40: [place] [address] Medical Branch ONDANSETRON Yes Take by [facility] vers HCL ORAL 1-31 mouth. ity of 09:40: [place] [address] Medical Branch ONDANSETRON 2023-0 Yes Take by [facility] vers HCL ORAL 1-31 mouth. ity of 09:40: [address] ONDANSETRON 2022-0 Yes Take by Uni vers HCL ORAL 1-31 mouth. ity of 09:40: [address] ONDANSETRON 2022-0 Yes Take by [facility] vers HCL ORAL 1-31 mouth. ity of 09:40: [address] ONDANSETRON 2022-0 Yes Take by [facility] vers HCL ORAL 1-31 mouth. ity of 09:40: [address] ONDANSETRON 2022-0 Yes Take by [facility] vers HCL ORAL 1-31 mouth. ity of 09:40: [address] ONDANSETRON 2022-0 Yes Take by [facility] vers HCL ORAL 1-31 mouth. ity of 09:40: [address] ONDANSETRON 2022-0 Yes Take by [facility] vers HCL ORAL 1-31 mouth. ity of 09:40: [address] ONDANSETRON 2022-0 Yes Take by Uni vers HCL ORAL 1-31 mouth. ity of 09:40: [address] ONDANSETRON 2022-0 Yes Take by Uni vers HCL ORAL 1-31 mouth. ity of 09:40: [address] ONDANSETRON 2022-0 Yes Take by [facility] vers HCL ORAL 1-31 mouth. ity of 09:40: [address] ONDANSETRON 2022-0 Yes Take by Uni vers HCL ORAL 1-31 mouth. ity of 09:40: [address] ONDANSETRON 2022-0 Yes Take by Uni vers HCL ORAL 1-31 mouth. ity of 09:40: [address] ONDANSETRON 2022-0 Yes Take by Uni vers HCL ORAL 1-31 mouth. ity of 09:40: [address] LORazepam 2022-0 2022- No [id number] 1mg 1 mg, [facility] nivers (ATIVAN) 08-16 Oral, ity of tablet 1 mg 20:15: 19:20 ONCE, 1 [place] 00 :00 dose, On Medical 08/16/22 Branch at 1415, Routine LORazepam 2022-0 2022- No [id number] 1mg 1 mg, [facility]ivers (ATIVAN) 1-04 01-04 Oral, ity of tablet 1 mg 20:15: 19:20 ONCE, 1 [place] 00 :[place] dose, On Medical 08/16/22 Branch at 1415, Routine JARDIANCE 2022-0 Yes [id number] TAKE 1 [facility] nivers 25 mg Tab 1-04 TABLET BY ity o f 00:00: MOUTH ONCE [place] 00 DAILY IN Medical THE Branch MORNING HYDROXYZINE 2022-0 Yes [id number] TAKE 1 [facility] 25 mg 1-04 TABLET BY ity of tablet 00:00: MOUTH [place] 00 EVERY 8 Medical HOURS Branch NEEDED FOR ITCHING PROMETHAZIN 3-0 Yes [id number] TAKE 2 [facility] E 12.5 mg 1-04 TABLETS BY ity of tablet 00:00: MOUTH [place] 00 EVERY 6 Medical HOURS Branch NEEDED FOR VERTIGO JARDIANCE 2022-0 Yes [id number] TAKE 1 [facility] nivers 25 mg Tab 1-04 TABLET BY ity o f 00:00: MOUTH ONCE [place] 00 DAILY IN Medical THE Branch MORNING HYDROXYZINE 2022-0 Yes [id number] TAKE 1 [facility] 25 mg 1-04 TABLET BY ity of tablet 00:00: MOUTH [place] 00 EVERY 8 Medical HOURS Branch NEEDED FOR ITCHING PROMETHAZIN 3-0 Yes [id number] TAKE 2 [facility] E 12.5 mg 1-04 TABLETS BY ity of tablet 00:00: MOUTH [place] 00 EVERY 6 Medical HOURS Branch NEEDED FOR VERTIGO JARDIANCE 2023-0 Yes [id number] TAKE 1 [facility] nivers 25 mg Tab 1-04 TABLET BY ity o f 00:00: MOUTH ONCE [place] 00 DAILY IN Medical THE Branch MORNING HYDROXYZINE 3-0 Yes [id number] TAKE 1 [facility] 25 mg 1-04 TABLET BY ity of tablet 00:00: MOUTH [place] 00 EVERY 8 Medical HOURS Branch NEEDED FOR ITCHING PROMETHAZIN 3-0 Yes [id number] TAKE 2 [facility] E 12.5 mg 1-04 TABLETS BY ity of tablet 00:00: MOUTH [place] 00 EVERY 6 Medical HOURS Branch NEEDED FOR VERTIGO JARDIANCE 2023-0 Yes [id number] TAKE 1 [facility] nivers 25 mg Tab 1-04 TABLET BY ity o f 00:00: MOUTH ONCE [place] 00 DAILY IN Medical THE Branch MORNING HYDROXYZINE 2022-0 Yes [id number] TAKE 1 [facility] 25 mg 1-04 TABLET BY ity of tablet 00:00: MOUTH [place] 00 EVERY 8 Medical HOURS Branch NEEDED FOR ITCHING PROMETHAZIN 2023-0 Yes [id number] TAKE 2 [facility] E 12.5 mg 1-04 TABLETS BY ity of tablet 00:00: MOUTH [place] 00 EVERY 6 Medical HOURS Branch NEEDED FOR VERTIGO JARDIANCE 2023-0 Yes [id number] TAKE 1 [facility] nivers 25 mg Tab 1-04 TABLET BY ity o f 00:00: MOUTH ONCE [place] 00 DAILY IN Medical THE Branch MORNING HYDROXYZINE 2022-0 Yes [id number] TAKE 1 [facility] 25 mg 1-04 TABLET BY ity of tablet 00:00: MOUTH [place] 00 EVERY 8 Medical HOURS Branch NEEDED FOR ITCHING PROMETHAZIN 3-0 Yes [id number] TAKE 2 [facility] E 12.5 mg 1-04 TABLETS BY ity of tablet 00:00: MOUTH [place] 00 EVERY 6 Medical HOURS Branch NEEDED FOR VERTIGO JARDIANCE 202-0 Yes [id number] TAKE 1 [facility] nivers 25 mg Tab 1-04 TABLET BY ity o f 00:00: MOUTH ONCE [place] 00 DAILY IN Medical THE Branch MORNING HYDROXYZINE 3-0 Yes [id number] TAKE 1 [facility] 25 mg 1-04 TABLET BY ity of tablet 00:00: MOUTH [place] 00 EVERY 8 Medical HOURS Branch NEEDED FOR ITCHING PROMETHAZIN 3-0 Yes [id number] TAKE 2 [facility] E 12.5 mg 1-04 TABLETS BY ity of tablet 00:00: MOUTH [place] 00 EVERY 6 Medical HOURS Branch NEEDED FOR VERTIGO JARDIANCE 2023-0 Yes [id number] TAKE 1 U nivers 25 mg Tab 1-04 TABLET BY ity o f 00:00: MOUTH ONCE [place] 00 DAILY IN Medical THE Branch MORNING HYDROXYZINE 3-0 Yes [id number] TAKE 1 [facility] 25 mg 1-04 TABLET BY ity of tablet 00:00: MOUTH [place] 00 EVERY 8 Medical HOURS Branch NEEDED FOR ITCHING PROMETHAZIN 2023-0 Yes [id number] TAKE 2 [facility] E 12.5 mg 1-04 TABLETS BY ity of tablet 00:00: MOUTH [place] 00 EVERY 6 Medical HOURS Branch NEEDED FOR VERTIGO JARDIANCE 2023-0 Yes [id number] TAKE 1 [facility] nivers 25 mg Tab 1-04 TABLET BY ity o f 00:00: MOUTH ONCE [place] 00 DAILY IN Medical THE Branch MORNING HYDROXYZINE 2022-0 Yes [id number] TAKE 1 [facility] 25 mg 1-04 TABLET BY ity of tablet 00:00: MOUTH [place] 00 EVERY 8 Medical HOURS Branch NEEDED FOR ITCHING PROMETHAZIN 2023-0 Yes [id number] TAKE 2 [facility] E 12.5 mg 1-04 TABLETS BY ity of tablet 00:00: MOUTH [place] 00 EVERY 6 Medical HOURS Branch NEEDED FOR VERTIGO JARDIANCE 2022-0 Yes [id number] TAKE 1 [facility] nivers 25 mg Tab 1-04 TABLET BY ity o f 00:00: MOUTH ONCE [place] 00 DAILY IN Medical THE Branch MORNING HYDROXYZINE 2022-0 Yes [id number] TAKE 1 [facility] 25 mg 1-04 TABLET BY ity of tablet 00:00: MOUTH [place] 00 EVERY 8 Medical HOURS Branch NEEDED FOR ITCHING PROMETHAZIN 2022-0 Yes [id number] TAKE 2 [facility] E 12.5 mg 1-04 TABLETS BY ity of tablet 00:00: MOUTH [place] 00 EVERY 6 Medical HOURS Branch NEEDED FOR VERTIGO JARDIANCE 3-0 Yes [id number] TAKE 1 [facility] nivers 25 mg Tab 1-04 TABLET BY ity o f 00:00: MOUTH ONCE [place] 00 DAILY IN Medical THE Branch MORNING HYDROXYZINE 2022-0 Yes [id number] TAKE 1 [facility] 25 mg 1-04 TABLET BY ity of tablet 00:00: MOUTH [place] 00 EVERY 8 Medical HOURS Branch NEEDED FOR ITCHING PROMETHAZIN 3-0 Yes [id number] TAKE 2 [facility] E 12.5 mg 1-04 TABLETS BY ity of tablet 00:00: MOUTH [place] 00 EVERY 6 Medical HOURS Branch NEEDED FOR VERTIGO JARDIANCE 3-0 Yes [id number] TAKE 1 [facility] nivers 25 mg Tab 1-04 TABLET BY ity o f 00:00: MOUTH ONCE [place] 00 DAILY IN Medical THE Branch MORNING HYDROXYZINE 3-0 Yes [id number] TAKE 1 [facility] 25 mg 1-04 TABLET BY ity of tablet 00:00: MOUTH [place] 00 EVERY 8 Medical HOURS Branch NEEDED FOR ITCHING PROMETHAZIN 3-0 Yes [id number] TAKE 2 [facility] E 12.5 mg 1-04 TABLETS BY ity of tablet 00:00: MOUTH [place] 00 EVERY 6 Medical HOURS Branch NEEDED FOR VERTIGO JARDIANCE 2023-0 Yes [id number] TAKE 1 [facility] nivers 25 mg Tab 1-04 TABLET BY ity o f 00:00: MOUTH ONCE [place] 00 DAILY IN Medical THE Branch MORNING HYDROXYZINE 3-0 Yes [id number] TAKE 1 [facility] 25 mg 1-04 TABLET BY ity of tablet 00:00: MOUTH [place] 00 EVERY 8 Medical HOURS Branch NEEDED FOR ITCHING PROMETHAZIN 2023-0 Yes [id number] TAKE 2 [facility] E 12.5 mg 1-04 TABLETS BY ity of tablet 00:00: MOUTH [place] 00 EVERY 6 Medical HOURS Branch NEEDED FOR VERTIGO JARDIANCE 2023-0 Yes [id number] TAKE 1 [facility] nivers 25 mg Tab 1-04 TABLET BY ity o f 00:00: MOUTH ONCE [place] 00 DAILY IN Medical THE Branch MORNING HYDROXYZINE 2022-0 Yes [id number] TAKE 1 [facility] 25 mg 1-04 TABLET BY ity of tablet 00:00: MOUTH [place] 00 EVERY 8 Medical HOURS Branch NEEDED FOR ITCHING PROMETHAZIN 2023-0 Yes [id number] TAKE 2 [facility] E 12.5 mg 1-04 TABLETS BY ity of tablet 00:00: MOUTH [place] 00 EVERY 6 Medical HOURS Branch NEEDED FOR VERTIGO JARDIANCE 2023-0 Yes [id number] TAKE 1 U nivers 25 mg Tab 1-04 TABLET BY ity o f 00:00: MOUTH ONCE [place] 00 DAILY IN Medical THE Branch MORNING HYDROXYZINE 3-0 Yes [id number] TAKE 1 [facility] 25 mg 1-04 TABLET BY ity of tablet 00:00: MOUTH [place] 00 EVERY 8 Medical HOURS Branch NEEDED FOR ITCHING PROMETHAZIN 2023-0 Yes [id number] TAKE 2 [facility] E 12.5 mg 1-04 TABLETS BY ity of tablet 00:00: MOUTH [place] 00 EVERY 6 Medical HOURS Branch NEEDED FOR VERTIGO JARDIANCE 2023-0 Yes [id number] TAKE 1 [facility] nivers 25 mg Tab 1-04 TABLET BY ity o f 00:00: MOUTH ONCE [place] 00 DAILY IN Medical THE Branch MORNING HYDROXYZINE 3-0 Yes [id number] TAKE 1 [facility] 25 mg 1-04 TABLET BY ity of tablet 00:00: MOUTH [place] 00 EVERY 8 Medical HOURS Branch NEEDED FOR ITCHING PROMETHAZIN 2023-0 Yes [id number] TAKE 2 [facility] E 12.5 mg 1-04 TABLETS BY ity of tablet 00:00: MOUTH [place] 00 EVERY 6 Medical HOURS Branch NEEDED FOR VERTIGO JARDIANCE 2023-0 Yes [id number] TAKE 1 [facility] nivers 25 mg Tab 1-04 TABLET BY ity o f 00:00: MOUTH ONCE [place] 00 DAILY IN Medical THE Branch MORNING HYDROXYZINE 2022-0 Yes [id number] TAKE 1 [facility] 25 mg 1-04 TABLET BY ity of tablet 00:00: MOUTH [place] 00 EVERY 8 Medical HOURS Branch NEEDED FOR ITCHING PROMETHAZIN 3-0 Yes [id number] TAKE 2 [facility] E 12.5 mg 1-04 TABLETS BY ity of tablet 00:00: MOUTH [place] 00 EVERY 6 Medical HOURS Branch NEEDED FOR VERTIGO JARDIANCE 2022-0 Yes [id number] TAKE 1 [facility] nivers 25 mg Tab 1-04 TABLET BY ity o f 00:00: MOUTH ONCE [place] 00 DAILY IN Medical THE Branch MORNING HYDROXYZINE 2022-0 Yes [id number] TAKE 1 [facility] 25 mg 1-04 TABLET BY ity of tablet 00:00: MOUTH [place] 00 EVERY 8 Medical HOURS Branch NEEDED FOR ITCHING PROMETHAZIN 2022-0 Yes [id number] TAKE 2 [facility] E 12.5 mg 1-04 TABLETS BY ity of tablet 00:00: MOUTH [place] 00 EVERY 6 Medical HOURS Branch NEEDED FOR VERTIGO JARDIANCE 3-0 Yes [id number] TAKE 1 [facility] nivers 25 mg Tab 1-04 TABLET BY ity o f 00:00: MOUTH ONCE [place] 00 DAILY IN Medical THE Branch MORNING HYDROXYZINE 2022-0 Yes [id number] TAKE 1 [facility] 25 mg 1-04 TABLET BY ity of tablet 00:00: MOUTH [place] 00 EVERY 8 Medical HOURS Branch NEEDED FOR ITCHING PROMETHAZIN 3-0 Yes [id number] TAKE 2 [facility] E 12.5 mg 1-04 TABLETS BY ity of tablet 00:00: MOUTH [place] 00 EVERY 6 Medical HOURS Branch NEEDED FOR VERTIGO JARDIANCE 3-0 Yes [id number] TAKE 1 [facility] nivers 25 mg Tab 1-04 TABLET BY ity o f 00:00: MOUTH ONCE [place] 00 DAILY IN Medical THE Branch MORNING PROMETHAZIN 2022-0 Yes [id number] TAKE 2 [facility] E 12.5 mg 1-04 TABLETS BY ity of tablet 00:00: MOUTH [place] 00 EVERY 6 Medical HOURS Branch NEEDED FOR VERTIGO JARDIANCE 3-0 Yes [id number] TAKE 1 [facility] nivers 25 mg Tab 1-04 TABLET BY ity o f 00:00: MOUTH ONCE [place] 00 DAILY IN [facility] THE Branch MORNING PROMETHAZIN 2022-0 Yes [id number] TAKE 2 [facility] E 12.5 mg 1-04 TABLETS BY ity of tablet 00:00: MOUTH [place] 00 EVERY 6 Medical HOURS Branch NEEDED FOR VERTIGO JARDIANCE 2022-0 Yes [id number] TAKE 1 [facility] nivers 25 mg Tab 1-04 TABLET BY ity o f 00:00: MOUTH ONCE [place] 00 DAILY IN [facility] THE Branch MORNING PROMETHAZIN 2022-0 Yes [id number] TAKE 2 [facility] E 12.5 mg 1-04 TABLETS BY ity of tablet 00:00: MOUTH [place] 00 EVERY 6 Medical HOURS Branch NEEDED FOR VERTIGO JARDIANCE 2022-0 Yes [id number] TAKE 1 U nivers 25 mg Tab 1-04 TABLET BY ity o f 00:00: MOUTH ONCE [place] 00 DAILY IN [facility] THE Branch MORNING PROMETHAZIN 2022-0 Yes [id number] TAKE 2 [facility] E 12.5 mg 1-04 TABLETS BY ity of tablet 00:00: MOUTH [place] 00 EVERY 6 Medical HOURS Branch NEEDED FOR VERTIGO JARDIANCE 2022-0 Yes [id number] TAKE 1 [facility] nivers 25 mg Tab 1-04 TABLET BY ity o f 00:00: MOUTH ONCE [place] 00 DAILY IN [facility] THE Branch MORNING PROMETHAZIN 2022-0 Yes [id number] TAKE 2 [facility] E 12.5 mg 1-04 TABLETS BY ity of tablet 00:00: MOUTH [place] 00 EVERY 6 Medical HOURS Branch NEEDED FOR VERTIGO JARDIANCE 2022-0 Yes [id number] TAKE 1 [facility] nivers 25 mg Tab 1-04 TABLET BY ity o f 00:00: MOUTH ONCE [place] 00 DAILY IN [facility] THE Branch MORNING PROMETHAZIN 2022-0 Yes [id number] TAKE 2 [facility] E 12.5 mg 1-04 TABLETS BY ity of tablet 00:00: MOUTH [place] 00 EVERY 6 Medical HOURS Branch NEEDED FOR VERTIGO JARDIANCE 2022-0 Yes [id number] TAKE 1 [facility] nivers 25 mg Tab 1-04 TABLET BY ity o f 00:00: MOUTH ONCE [place] 00 DAILY IN [facility] THE Branch MORNING PROMETHAZIN 2022-0 Yes [id number] TAKE 2 [facility] E 12.5 mg 1-04 TABLETS BY ity of tablet 00:00: MOUTH [place] 00 EVERY 6 Medical HOURS Branch NEEDED FOR VERTIGO JARDIANCE 2023-0 Yes [id number] TAKE 1 [facility] nivers 25 mg Tab 1-04 TABLET BY ity o f 00:00: MOUTH ONCE [place] 00 DAILY IN Medical THE Branch MORNING PROMETHAZIN 2022-0 Yes [id number] TAKE 2 [facility] E 12.5 mg 1-04 TABLETS BY ity of tablet 00:00: MOUTH [place] 00 EVERY 6 Medical HOURS Branch NEEDED FOR VERTIGO JARDIANCE 2023-0 Yes [id number] TAKE 1 [facility] nivers 25 mg Tab 1-04 TABLET BY ity o f 00:00: MOUTH ONCE [place] 00 DAILY IN Medical THE Branch MORNING PROMETHAZIN 2022-0 Yes [id number] TAKE 2 [facility] E 12.5 mg 1-04 TABLETS BY ity of tablet 00:00: MOUTH [place] 00 EVERY 6 Medical HOURS Branch NEEDED FOR VERTIGO JARDIANCE 202-0 Yes [id number] TAKE 1 [facility] nivers 25 mg Tab 1-04 TABLET BY ity o f 00:00: MOUTH ONCE [place] 00 DAILY IN Medical THE Branch MORNING HYDROXYZINE 3-0 Yes [id number] TAKE 1 [facility] 25 mg 1-04 TABLET BY ity of tablet 00:00: MOUTH [place] 00 EVERY 8 Medical HOURS Branch NEEDED FOR ITCHING PROMETHAZIN 3-0 Yes [id number] TAKE 2 [facility] E 12.5 mg 1-04 TABLETS BY ity of tablet 00:00: MOUTH [place] 00 EVERY 6 Medical HOURS Branch NEEDED FOR VERTIGO JARDIANCE 2023-0 Yes [id number] TAKE 1 [facility] nivers 25 mg Tab 1-04 TABLET BY ity o f 00:00: MOUTH ONCE [place] 00 DAILY IN Medical THE Branch MORNING HYDROXYZINE 3-0 Yes [id number] TAKE 1 [facility] 25 mg 1-04 TABLET BY ity of tablet 00:00: MOUTH [place] 00 EVERY 8 Medical HOURS Branch NEEDED FOR ITCHING PROMETHAZIN 2023-0 Yes [id number] TAKE 2 [facility] E 12.5 mg 1-04 TABLETS BY ity of tablet 00:00: MOUTH [place] 00 EVERY 6 Medical HOURS Branch NEEDED FOR VERTIGO JARDIANCE 2023-0 Yes [id number] TAKE 1 [facility] nivers 25 mg Tab 1-04 TABLET BY ity o f 00:00: MOUTH ONCE [place] 00 DAILY IN Medical THE Branch MORNING HYDROXYZINE 3-0 Yes [id number] TAKE 1 [facility] 25 mg 1-04 TABLET BY ity of tablet 00:00: MOUTH [place] 00 EVERY 8 Medical HOURS Branch NEEDED FOR ITCHING PROMETHAZIN 2023-0 Yes [id number] TAKE 2 [facility] E 12.5 mg 1-04 TABLETS BY ity of tablet 00:00: MOUTH [place] 00 EVERY 6 Medical HOURS Branch NEEDED FOR VERTIGO JARDIANCE 2023-0 Yes [id number] TAKE 1 [facility] nivers 25 mg Tab 1-04 TABLET BY ity o f 00:00: MOUTH ONCE [place] 00 DAILY IN Medical THE Branch MORNING HYDROXYZINE 3-0 Yes [id number] TAKE 1 [facility] 25 mg 1-04 TABLET BY ity of tablet 00:00: MOUTH [place] 00 EVERY 8 Medical HOURS Branch NEEDED FOR ITCHING PROMETHAZIN 3-0 Yes [id number] TAKE 2 [facility] E 12.5 mg 1-04 TABLETS BY ity of tablet 00:00: MOUTH [place] 00 EVERY 6 Medical HOURS Branch NEEDED FOR VERTIGO JARDIANCE 3-0 Yes [id number] TAKE 1 [facility] nivers 25 mg Tab 1-04 TABLET BY ity o f 00:00: MOUTH ONCE [place] 00 DAILY IN Medical THE Branch MORNING HYDROXYZINE 2022-0 Yes [id number] TAKE 1 [facility] 25 mg 1-04 TABLET BY ity of tablet 00:00: MOUTH [place] 00 EVERY 8 Medical HOURS Branch NEEDED FOR ITCHING PROMETHAZIN 3-0 Yes [id number] TAKE 2 [facility] E 12.5 mg 1-04 TABLETS BY ity of tablet 00:00: MOUTH [place] 00 EVERY 6 Medical HOURS Branch NEEDED FOR VERTIGO JARDIANCE 2023-0 Yes [id number] TAKE 1 [facility] nivers 25 mg Tab 1-04 TABLET BY ity o f 00:00: MOUTH ONCE [place] 00 DAILY IN Medical THE Branch MORNING HYDROXYZINE 3-0 Yes [id number] TAKE 1 [facility] 25 mg 1-04 TABLET BY ity of tablet 00:00: MOUTH [place] 00 EVERY 8 Medical HOURS Branch NEEDED FOR ITCHING PROMETHAZIN 2023-0 Yes [id number] TAKE 2 [facility] E 12.5 mg 1-04 TABLETS BY ity of tablet 00:00: MOUTH [place] 00 EVERY 6 Medical HOURS Branch NEEDED FOR VERTIGO JARDIANCE 2023-0 Yes [id number] TAKE 1 [facility] nivers 25 mg Tab 1-04 TABLET BY ity o f 00:00: MOUTH ONCE [place] 00 DAILY IN Medical THE Branch MORNING HYDROXYZINE 3-0 Yes [id number] TAKE 1 [facility] 25 mg 1-04 TABLET BY ity of tablet 00:00: MOUTH [place] 00 EVERY 8 Medical HOURS Branch NEEDED FOR ITCHING PROMETHAZIN 2022-0 Yes [id number] TAKE 2 [facility] E 12.5 mg 1-04 TABLETS BY ity of tablet 00:00: MOUTH [place] 00 EVERY 6 Medical HOURS Branch NEEDED FOR VERTIGO JARDIANCE 2022-0 Yes [id number] TAKE 1 [facility] nivers 25 mg Tab 1-04 TABLET BY ity o f 00:00: MOUTH ONCE [place] 00 DAILY IN Medical THE Branch MORNING HYDROXYZINE 2022-0 Yes [id number] TAKE 1 [facility] 25 mg 1-04 TABLET BY ity of tablet 00:00: MOUTH [place] 00 EVERY 8 Medical HOURS Branch NEEDED FOR ITCHING PROMETHAZIN 2022-0 Yes [id number] TAKE 2 [facility] E 12.5 mg 1-04 TABLETS BY ity of tablet 00:00: MOUTH [place] 00 EVERY 6 Medical HOURS Branch NEEDED FOR VERTIGO HYDROXYZINE 3-0 3- No [id number] TAKE 1 [facility] 25 mg 1-04 02-09 TABLET BY [facility] tablet 00:00: 00:00 MOUTH [place] 00 :00 EVERY 8 Medical HOURS Branch NEEDED FOR ITCHING HYDROXYZINE 3-0 2023- No [id number] TAKE 1 [facility] 25 mg 1-04 02-09 TABLET BY [facility] tablet 00:00: 00:00 MOUTH [place] 00 :00 EVERY 8 Medical HOURS Branch NEEDED FOR ITCHING HYDROXYZINE 3-0 2023- No [id number] TAKE 1 [facility] 25 mg 1-04 02-09 TABLET BY [facility] tablet 00:00: 00:00 MOUTH [place] 00 :00 EVERY 8 Medical HOURS Branch NEEDED FOR ITCHING HYDROXYZINE 3-0 3- No [id number] TAKE 1 [facility] 25 mg 1-04 02-09 TABLET BY [facility] of tablet 00:00: 00:00 MOUTH [place] 00 :00 EVERY 8 Medical HOURS Branch NEEDED FOR ITCHING fluconazole 2021-1 Yes [id number] 200mg Take 1 [facility] 200 mg 2-08 tablet by [facility] of tablet 00:00: mouth in [place] 00 the Medical morning. Branch fluconazole 2021- Yes [id number] 200mg Take 1 [facility] 200 mg 2-08 tablet by [facility] of tablet 00:00: mouth in [place] 00 the Medical morning. Branch fluconazole 2021-1 Yes [id number] 200mg Take 1 [facility] 200 mg 2-08 tablet by [facility] of tablet 00:00: mouth in [place] 00 the Medical morning. Branch fluconazole 2021-1 Yes [id number] 200mg Take 1 [facility] 200 mg 2-08 tablet by [facility] of tablet 00:00: mouth in [place] 00 the Medical morning. Branch fluconazole 2021-1 Yes [id number] 200mg Take 1 [facility] 200 mg 2-08 tablet by [facility] of tablet 00:00: mouth in [place] the Medical morning. Branch fluconazole 2021-1 Yes [id number] 200mg Take 1 [facility] 200 mg 2-08 tablet by [facility] of tablet 00:00: mouth in [place] the Medical morning. Branch fluconazole 2021-1 Yes [id number] 200mg Take 1 [facility] 200 mg 2-08 tablet by [facility] of tablet 00:00: mouth in [place] the Medical morning. Branch fluconazole 2021-1 Yes [id number] 200mg Take 1 [facility] 200 mg 2-08 tablet by [facility] of tablet 00:00: mouth in [place] the Medical morning. Branch fluconazole 2021-1 Yes [id number] 200mg Take 1 [facility] 200 mg 2-08 tablet by [facility] of tablet 00:00: mouth in [place] the Medical morning. Branch fluconazole 2021-1 Yes [id number] 200mg Take 1 [facility] 200 mg 2-08 tablet by [facility] of tablet 00:00: mouth in [place] the Medical morning. Branch fluconazole 2021-1 Yes [id number] 200mg Take 1 [facility] 200 mg 2-08 tablet by [facility] of tablet 00:00: mouth in [place] 00 the Medical morning. Branch fluconazole 2021-1 Yes [id number] 200mg Take 1 [facility] 200 mg 2-08 tablet by [facility] of tablet 00:00: mouth in [place] 00 the Medical morning. Branch fluconazole 2021-1 Yes [id number] 200mg Take 1 [facility] 200 mg 2-08 tablet by [facility] of tablet 00:00: mouth in [place] 00 the Medical morning. Branch fluconazole 2021-1 Yes [id number] 200mg Take 1 [facility] 200 mg 2-08 tablet by [facility] of tablet 00:00: mouth in [place] 00 the Medical morning. Branch fluconazole 2021-1 Yes [id number] 200mg Take 1 [facility] 200 mg 2-08 tablet by [facility] of tablet 00:00: mouth in [place] the Medical morning. Branch fluconazole 2021-1 Yes [id number] 200mg Take 1 [facility] 200 mg 2-08 tablet by [facility] of tablet 00:00: mouth in [place] the Medical morning. Branch fluconazole 2021-1 Yes [id number] 200mg Take 1 [facility] 200 mg 2-08 tablet by [facility] of tablet 00:00: mouth in [place] the Medical morning. Branch fluconazole 2021-1 Yes [id number] 200mg Take 1 [facility] 200 mg 2-08 tablet by [facility] of tablet 00:00: mouth in [place] the Medical morning. Branch fluconazole 2021-1 Yes [id number] 200mg Take 1 [facility] 200 mg 2-08 tablet by [facility] of tablet 00:00: mouth in [place] the Medical morning. Branch fluconazole 2021-1 Yes [id number] 200mg Take 1 [facility] 200 mg 2-08 tablet by [facility] of tablet 00:00: mouth in [place] the Medical morning. Branch fluconazole 2021-1 Yes [id number] 200mg Take 1 [facility] 200 mg 2-08 tablet by [facility] of tablet 00:00: mouth in [place] the Medical morning. Branch fluconazole 2021-1 Yes [id number] 200mg Take 1 [facility] 200 mg 2-08 tablet by [facility] of tablet 00:00: mouth in [place] the Medical morning. Branch fluconazole 2021-1 Yes [id number] 200mg Take 1 [facility] 200 mg 2-08 tablet by [facility] of tablet 00:00: mouth in [place] the Medical morning. Branch fluconazole 2021-1 Yes [id number] 200mg Take 1 [facility] 200 mg 2-08 tablet by [facility] of tablet 00:00: mouth in [place] the Medical morning. Branch fluconazole 2-1 Yes [id number] 200mg Take 1 [facility] 200 mg 2-08 tablet by [facility] of tablet 00:00: mouth in [place] the Medical morning. Branch fluconazole 2-1 Yes [id number] 200mg Take 1 [facility] 200 mg 2-08 tablet by [facility] of tablet 00:00: mouth in [place] the Medical morning. Branch fluconazole 2-1 Yes [id number] 200mg Take 1 [facility] 200 mg 2-08 tablet by [facility] of tablet 00:00: mouth in [place] the Medical morning. Branch fluconazole 2021-1 Yes [id number] 200mg Take 1 [facility] 200 mg 2-08 tablet by [facility] of tablet 00:00: mouth in [place] the Medical morning. Branch fluconazole 2021-1 Yes [id number] 200mg Take 1 [facility] 200 mg 2-08 tablet by [facility] of tablet 00:00: mouth in [place] the Medical morning. Branch fluconazole 2021-1 Yes [id number] 200mg Take 1 [facility] 200 mg 2-08 tablet by [facility] of tablet 00:00: mouth in [place] the Medical morning. Branch fluconazole 2021-1 Yes [id number] 200mg Take 1 [facility] 200 mg 2-08 tablet by [facility] of tablet 00:00: mouth in [place] the Medical morning. Branch fluconazole 2021-1 Yes [id number] 200mg Take 1 [facility] 200 mg 2-08 tablet by [facility] of tablet 00:00: mouth in [place] the Medical morning. Branch fluconazole 2021-1 Yes [id number] 200mg Take 1 [facility] 200 mg 2-08 tablet by [facility] of tablet 00:00: mouth in [place] the Medical morning. Branch fluconazole 2021-1 Yes [id number] 200mg Take 1 [facility] 200 mg 2-08 tablet by [facility] of tablet 00:00: mouth in [place] the Medical morning. Branch fluconazole 2021-1 Yes [id number] 200mg Take 1 [facility] 200 mg 2-08 tablet by [facility] of tablet 00:00: mouth in [place] the Medical morning. Branch fluconazole 2021-1 Yes [id number] 200mg Take 1 [facility] 200 mg 2-08 tablet by [facility] of tablet 00:00: mouth in [place] the Medical morning. Branch fluconazole 2021-1 Yes [id number] 200mg Take 1 [facility] 200 mg 2-08 tablet by [facility] of tablet 00:00: mouth in [place] the Medical morning. Branch fluconazole 2-1 Yes [id number] 200mg Take 1 [facility] 200 mg 2-08 tablet by [facility] of tablet 00:00: mouth in [place] the Medical morning. Branch fluconazole 2-1 Yes [id number] 200mg Take 1 [facility] 200 mg 2-08 tablet by [facility] of tablet 00:00: mouth in [place] 00 the Medical morning. Branch fluconazole 2021-1 Yes [id number] 200mg Take 1 [facility] 200 mg 2-08 tablet by [facility] of tablet 00:00: mouth in [place] the Medical morning. [place] fluconazole 2021-08 Yes [id number] 200mg Take 1 [facility] 200 mg 2-08 tablet by [facility] of tablet 00:00: mouth in [place] the Medical morning. Branch fluconazole 2021-08 Yes [id number] 200mg Take 1 [facility] 200 mg 2-08 tablet by [facility] of tablet 00:00: mouth in [place] the Medical morning. Branch fluconazole 2021-08 Yes [id number] 200mg Take 1 [facility] 200 mg 2-08 tablet by [facility] of tablet 00:00: mouth in [place] the Medical morning. [place] fluconazole 2021-08 Yes [id number] 200mg Take 1 [facility] 200 mg 2-08 tablet by [facility] of tablet 00:00: mouth in [place] the Medical morning. [place] fluconazole 2021-08 Yes [id number] 200mg Take 1 [facility] 200 mg 2-08 tablet by [facility] of tablet 00:00: mouth in [place] the Medical morning. [place] fluconazole 2021-08 Yes [id number] 200mg Take 1 [facility] 200 mg 2-08 tablet by [facility] of tablet 00:00: mouth in [place] the Medical morning. [place] fluconazole 2021-08 Yes [id number] 200mg Take 1 [facility] 200 mg 2-08 tablet by [facility] of tablet 00:00: mouth in [place] the Medical morning. [place] fluconazole 2021-08 Yes [id number] 200mg Take 1 [facility] 200 mg 2-08 tablet by [facility] of tablet 00:00: mouth in [place] the Medical morning. [place] terconazole 2021-08 Yes [id number] 1{appli Insert 1 [facility] 0.4 % 2-07 cator} Applicator ity of vaginal 00:00: into [place] cream 00 vagina at Medical bedtime. [place] terconazole 2021-08 Yes [id number] 1{appli Insert 1 [facility] 0.4 % 2-07 cator} Applicator [facility] of vaginal 00:00: into [place] cream 00 vagina at Medical bedtime. [place] terconazole 2021-08 Yes [id number] 1{appli Insert 1 [facility] 0.4 % 2-07 cator} Applicator [facility] of vaginal 00:00: into [place] cream 00 vagina at Medical bedtime. [place] terconazole 2021-08 Yes [id number] 1{appli Insert 1 [facility] 0.4 % 2-07 cator} Applicator [facility] of vaginal 00:00: into [place] cream 00 vagina at Medical bedtime. [place] terconazole 2021-08 Yes [id number] 1{appli Insert 1 [facility] 0.4 % 2-07 cator} Applicator [facility] of vaginal 00:00: into [place] cream 00 vagina at Medical bedtime. [place] terconazole 2021-08- No [id number] 1{appli Insert 1 [facility] 0.4 % 2-08-02 cator} Applicator ity o f vaginal 00:00: 00:00 into [place] cream 00 :00 vagina at Medical bedtime. [place] terconazole 2021-08- No [id number] 1{appli Insert 1 [facility] 0.4 % 2-08-02 cator} Applicator ity o f vaginal 00:00: 00:00 into [place] cream 00 :00 vagina at Medical bedtime. [place] NuvaRing 2021-08 Yes [id number] 1{each} Insert 1 [facility] 0.12-0.015 1-22 Each into [facility] of mg/24 hr 00:00: vagina [place] vaginal 00 once every Medica l insert month. Branch Insert vaginally and leave in place for 3 consecutiv e weeks, then remove for 1 week. NuvaRing 2021-08 Yes [id number] 1{each} Insert 1 [facility] 0.12-0.015 1-22 Each into [facility] of mg/24 hr 00:00: vagina [place] vaginal 00 once every Medica l insert month. Branch Insert vaginally and leave in place for 3 consecutiv e weeks, then remove for 1 week. NuvaRing 2021-08 Yes [id number] 1{each} Insert 1 [facility] 0.12-0.015 1-22 Each into [facility] of mg/24 hr 00:00: vagina [place] vaginal 00 once every Medica l insert month. Branch Insert vaginally and leave in place for 3 consecutiv e weeks, then remove for 1 week. NuvaRing 2021-08 Yes [id number] 1{each} Insert 1 [facility] 0.12-0.015 1-22 Each into [facility]y of mg/24 hr 00:00: vagina [place] vaginal 00 once every Medica l insert month. Branch Insert vaginally and leave in place for 3 consecutiv e weeks, then remove for 1 week. NuvaRing 2021-08 Yes [id number] 1{each} Insert 1 [facility] 0.12-0.015 1-22 Each into ity of mg/24 hr 00:00: vagina [place] vaginal 00 once every Medica l insert month. Branch Insert vaginally and leave in place for 3 consecutiv e weeks, then remove for 1 week. NuvaRing 2021-08 Yes [id number] 1{each} Insert 1 [facility] 0.12-0.015 1-22 Each into ity of mg/24 hr 00:00: vagina [place] vaginal 00 once every Medica l insert month. Branch Insert vaginally and leave in place for 3 consecutiv e weeks, then remove for 1 week. NuvaRing 2021-08 Yes [id number] 1{each} Insert 1 [facility] 0.12-0.015 1-22 Each into ity of mg/24 hr 00:00: vagina [place] vaginal 00 once every Medica l insert month. Branch Insert vaginally and leave in place for 3 consecutiv e weeks, then remove for 1 week. NuvaRing 2021-08 Yes [id number] 1{each} Insert 1 [facility] 0.12-0.015 1-22 Each into ity of mg/24 hr 00:00: vagina [place] vaginal 00 once every Medica l insert month. Branch Insert vaginally and leave in place for 3 consecutiv e weeks, then remove for 1 week. NuvaRing 2021-08 Yes [id number] 1{each} Insert 1 [facility] 0.12-0.015 1-22 Each into ity of mg/24 hr 00:00: vagina [place] vaginal 00 once every Medica l insert month. Branch Insert vaginally and leave in place for 3 consecutiv e weeks, then remove for 1 week. NuvaRing 2021-08 Yes [id number] 1{each} Insert 1 [facility] 0.12-0.015 1-22 Each into ity of mg/24 hr 00:00: vagina [place] vaginal 00 once every Medica l insert month. Branch Insert vaginally and leave in place for 3 consecutiv e weeks, then remove for 1 week. NuvaRing 2021-08 Yes [id number] 1{each} Insert 1 [facility] 0.12-0.015 1-22 Each into ity of mg/24 hr 00:00: vagina [place] vaginal 00 once every Medica l insert month. Branch Insert vaginally and leave in place for 3 consecutiv e weeks, then remove for 1 week. NuvaRing 2021-08 Yes [id number] 1{each} Insert 1 [facility] 0.12-0.015 1-22 Each into ity of mg/24 hr 00:00: vagina [place] vaginal 00 once every Medica l insert month. Branch Insert vaginally and leave in place for 3 consecutiv e weeks, then remove for 1 week. NuvaRing 2021-08 Yes [id number] 1{each} Insert 1 [facility] 0.12-0.015 1-22 Each into ity of mg/24 hr 00:00: vagina [place] vaginal 00 once every Medica l insert month. Branch Insert vaginally and leave in place for 3 consecutiv e weeks, then remove for 1 week. NuvaRing 2021-08 Yes [id number] 1{each} Insert 1 [facility] 0.12-0.015 1-22 Each into ity of mg/24 hr 00:00: vagina [place] vaginal 00 once every Medica l insert month. Branch Insert vaginally and leave in place for 3 consecutiv e weeks, then remove for 1 week. NuvaRing 2021-08 Yes [id number] 1{each} Insert 1 [facility] 0.12-0.015 1-22 Each into ity of mg/24 hr 00:00: vagina [place] vaginal 00 once every Medica l insert month. Branch Insert vaginally and leave in place for 3 consecutiv e weeks, then remove for 1 week. NuvaRing 2021-08 Yes [id number] 1{each} Insert 1 [facility] 0.12-0.015 1-22 Each into ity of mg/24 hr 00:00: vagina [place] vaginal 00 once every Medica l insert month. Branch Insert vaginally and leave in place for 3 consecutiv e weeks, then remove for 1 week. NuvaRing 2021-08 Yes [id number] 1{each} Insert 1 [facility] 0.12-0.015 1-22 Each into ity of mg/24 hr 00:00: vagina [place] vaginal 00 once every Medica l insert month. Branch Insert vaginally and leave in place for 3 consecutiv e weeks, then remove for 1 week. NuvaRing 2021-08 Yes [id number] 1{each} Insert 1 [facility] 0.12-0.015 1-22 Each into ity of mg/24 hr 00:00: vagina [place] vaginal 00 once every Medica l insert month. Branch Insert vaginally and leave in place for 3 consecutiv e weeks, then remove for 1 week. NuvaRing 2021-08 Yes [id number] 1{each} Insert 1 [facility] 0.12-0.015 1-22 Each into ity of mg/24 hr 00:00: vagina [place] vaginal 00 once every Medica l insert month. Branch Insert vaginally and leave in place for 3 consecutiv e weeks, then remove for 1 week. NuvaRing 2021-08 Yes [id number] 1{each} Insert 1 [facility] 0.12-0.015 1-22 Each into ity of mg/24 hr 00:00: vagina [place] vaginal 00 once every Medica l insert month. Branch Insert vaginally and leave in place for 3 consecutiv e weeks, then remove for 1 week. NuvaRing 2021-08 Yes [id number] 1{each} Insert 1 [facility] 0.12-0.015 1-22 Each into ity of mg/24 hr 00:00: vagina [place] vaginal 00 once every Medica l insert month. Branch Insert vaginally and leave in place for 3 consecutiv e weeks, then remove for 1 week. NuvaRing 2021-08 Yes [id number] 1{each} Insert 1 [facility] 0.12-0.015 1-22 Each into ity of mg/24 hr 00:00: vagina [place] vaginal 00 once every Medica l insert month. Branch Insert vaginally and leave in place for 3 consecutiv e weeks, then remove for 1 week. NuvaRing 2021-08 Yes [id number] 1{each} Insert 1 [facility] 0.12-0.015 1-22 Each into ity of mg/24 hr 00:00: vagina [place] vaginal 00 once every Medica l insert month. Branch Insert vaginally and leave in place for 3 consecutiv e weeks, then remove for 1 week. NuvaRing 2021-08 Yes [id number] 1{each} Insert 1 [facility] 0.12-0.015 1-22 Each into ity of mg/24 hr 00:00: vagina [place] vaginal 00 once every Medica l insert month. Branch Insert vaginally and leave in place for 3 consecutiv e weeks, then remove for 1 week. NuvaRing 2021-08 Yes [id number] 1{each} Insert 1 [facility] 0.12-0.015 1-22 Each into ity of mg/24 hr 00:00: vagina [place] vaginal 00 once every Medica l insert month. Branch Insert vaginally and leave in place for 3 consecutiv e weeks, then remove for 1 week. NuvaRing 2021-08 Yes [id number] 1{each} Insert 1 [facility] 0.12-0.015 1-22 Each into ity of mg/24 hr 00:00: vagina [place] vaginal 00 once every Medica l insert month. Branch Insert vaginally and leave in place for 3 consecutiv e weeks, then remove for 1 week. NuvaRing 2021-08 Yes [id number] 1{each} Insert 1 [facility] 0.12-0.015 1-22 Each into ity of mg/24 hr 00:00: vagina [place] vaginal 00 once every Medica l insert month. Branch Insert vaginally and leave in place for 3 consecutiv e weeks, then remove for 1 week. NuvaRing 2021-08 Yes [id number] 1{each} Insert 1 [facility] 0.12-0.015 1-22 Each into ity of mg/24 hr 00:00: vagina [place] vaginal 00 once every Medica l insert month. Branch Insert vaginally and leave in place for 3 consecutiv e weeks, then remove for 1 week. NuvaRing 2021-08 Yes [id number] 1{each} Insert 1 [facility] 0.12-0.015 1-22 Each into ity of mg/24 hr 00:00: vagina [place] vaginal 00 once every Medica l insert month. Branch Insert vaginally and leave in place for 3 consecutiv e weeks, then remove for 1 week. NuvaRing 2021-08 Yes [id number] 1{each} Insert 1 [facility] 0.12-0.015 1-22 Each into ity of mg/24 hr 00:00: vagina [place] vaginal 00 once every Medica l insert month. Branch Insert vaginally and leave in place for 3 consecutiv e weeks, then remove for 1 week. NuvaRing 2021-08 Yes [id number] 1{each} Insert 1 [facility] 0.12-0.015 1-22 Each into ity of mg/24 hr 00:00: vagina [place] vaginal 00 once every Medica l insert month. Branch Insert vaginally and leave in place for 3 consecutiv e weeks, then remove for 1 week. NuvaRing 2021-08 Yes [id number] 1{each} Insert 1 [facility] 0.12-0.015 1-22 Each into ity of mg/24 hr 00:00: vagina [place] vaginal 00 once every Medica l insert month. Branch Insert vaginally and leave in place for 3 consecutiv e weeks, then remove for 1 week. NuvaRing 2021-08 Yes [id number] 1{each} Insert 1 [facility] 0.12-0.015 1-22 Each into ity of mg/24 hr 00:00: vagina [place] vaginal 00 once every Medica l insert month. Branch Insert vaginally and leave in place for 3 consecutiv e weeks, then remove for 1 week. NuvaRing 2021-08 Yes [id number] 1{each} Insert 1 [facility] 0.12-0.015 1-22 Each into ity of mg/24 hr 00:00: vagina [place] vaginal 00 once every Medica l insert month. Branch Insert vaginally and leave in place for 3 consecutiv e weeks, then remove for 1 week. NuvaRing 2021-08 Yes [id number] 1{each} Insert 1 [facility] 0.12-0.015 1-22 Each into ity of mg/24 hr 00:00: vagina [place] vaginal 00 once every Medica l insert month. Branch Insert vaginally and leave in place for 3 consecutiv e weeks, then remove for 1 week. NuvaRing 2021-08 Yes [id number] 1{each} Insert 1 [facility] 0.12-0.015 1-22 Each into ity of mg/24 hr 00:00: vagina [place] vaginal 00 once every Medica l insert month. Branch Insert vaginally and leave in place for 3 consecutiv e weeks, then remove for 1 week. NuvaRing 2021-08 Yes [id number] 1{each} Insert 1 [facility] 0.12-0.015 1-22 Each into ity of mg/24 hr 00:00: vagina [place] vaginal 00 once every Medica l insert month. Branch Insert vaginally and leave in place for 3 consecutiv e weeks, then remove for 1 week. NuvaRing 2021-08 Yes [id number] 1{each} Insert 1 [facility] 0.12-0.015 1-22 Each into ity of mg/24 hr 00:00: vagina [place] vaginal 00 once every Medica l insert month. Branch Insert vaginally and leave in place for 3 consecutiv e weeks, then remove for 1 week. NuvaRing 2021-08 Yes [id number] 1{each} Insert 1 [facility] 0.12-0.015 1-22 Each into ity of mg/24 hr 00:00: vagina [place] vaginal 00 once every Medica l insert month. Branch Insert vaginally and leave in place for 3 consecutiv e weeks, then remove for 1 week. NuvaRing 2021-08 Yes [id number] 1{each} Insert 1 [facility] 0.12-0.015 1-22 Each into ity of mg/24 hr 00:00: vagina [place] vaginal 00 once every Medica l insert month. Branch Insert vaginally and leave in place for 3 consecutiv e weeks, then remove for 1 week. NuvaRing 2021-08 Yes [id number] 1{each} Insert 1 [facility] 0.12-0.015 1-22 Each into ity of mg/24 hr 00:00: vagina [place] vaginal 00 once every Medica l insert month. Branch Insert vaginally and leave in place for 3 consecutiv e weeks, then remove for 1 week. NuvaRing 2021-08 Yes [id number] 1{each} Insert 1 [facility] 0.12-0.015 1-22 Each into ity of mg/24 hr 00:00: vagina [place] vaginal 00 once every Medica l insert month. Branch Insert vaginally and leave in place for 3 consecutiv e weeks, then remove for 1 week. NuvaRing 2021-08 Yes [id number] 1{each} Insert 1 [facility] 0.12-0.015 1-22 Each into ity of mg/24 hr 00:00: vagina [place] vaginal 00 once every Medica l insert month. Branch Insert vaginally and leave in place for 3 consecutiv e weeks, then remove for 1 week. NuvaRing 2021-08 Yes [id number] 1{each} Insert 1 [facility] 0.12-0.015 1-22 Each into ity of mg/24 hr 00:00: vagina [place] vaginal 00 once every Medica l insert month. Branch Insert vaginally and leave in place for 3 consecutiv e weeks, then remove for 1 week. NuvaRing 2021-08 Yes [id number] 1{each} Insert 1 [facility] 0.12-0.015 1-22 Each into ity of mg/24 hr 00:00: vagina [place] vaginal 00 once every Medica l insert month. Branch Insert vaginally and leave in place for 3 consecutiv e weeks, then remove for 1 week. NuvaRing 2021-08 Yes [id number] 1{each} Insert 1 [facility] 0.12-0.015 1-22 Each into ity of mg/24 hr 00:00: vagina [place] vaginal 00 once every Medica l insert month. Branch Insert vaginally and leave in place for 3 consecutiv e weeks, then remove for 1 week. NuvaRing 2021-08 Yes [id number] 1{each} Insert 1 [facility] 0.12-0.015 1-22 Each into ity of mg/24 hr 00:00: vagina [place] vaginal 00 once every Medica l insert month. Branch Insert vaginally and leave in place for 3 consecutiv e weeks, then remove for 1 week. NuvaRing 2021-08 Yes [id number] 1{each} Insert 1 [facility] 0.12-0.015 1-22 Each into ity of mg/24 hr 00:00: vagina [place] vaginal 00 once every Medica l insert month. Branch Insert vaginally and leave in place for 3 consecutiv e weeks, then remove for 1 week. NuvaRing 2021-08 Yes [id number] 1{each} Insert 1 [facility] 0.12-0.015 1-22 Each into ity of mg/24 hr 00:00: vagina [place] vaginal 00 once every Medica l insert month. Branch Insert vaginally and leave in place for 3 consecutiv e weeks, then remove for 1 week. NuvaRing 2021-08 Yes [id number] 1{each} Insert 1 [facility] 0.12-0.015 1-22 Each into ity of mg/24 hr 00:00: vagina [place] vaginal 00 once every Medica l insert month. Branch Insert vaginally and leave in place for 3 consecutiv e weeks, then remove for 1 week. NuvaRing 2021-08 Yes [id number] 1{each} Insert 1 [facility] 0.12-0.015 1-22 Each into ity of mg/24 hr 00:00: vagina [place] vaginal 00 once every Medica l insert month. Branch Insert vaginally and leave in place for 3 consecutiv e weeks, then remove for 1 week. NuvaRing 2021-08 Yes [id number] 1{each} Insert 1 [facility] 0.12-0.015 1-22 Each into ity of mg/24 hr 00:00: vagina [place] vaginal 00 once every Medica l insert month. Branch Insert vaginally and leave in place for 3 consecutiv e weeks, then remove for 1 week. NuvaRing 2021-08 Yes [id number] 1{each} Insert 1 [facility] 0.12-0.015 1-22 Each into ity of mg/24 hr 00:00: vagina [place] vaginal 00 once every Medica l insert month. Branch Insert vaginally and leave in place for 3 consecutiv e weeks, then remove for 1 week. NuvaRing 2021-08 Yes [id number] 1{each} Insert 1 [facility] 0.12-0.015 1-22 Each into ity of mg/24 hr 00:00: vagina [place] vaginal 00 once every Medica l insert month. Branch Insert vaginally and leave in place for 3 consecutiv e weeks, then remove for 1 week. NuvaRing 2021-08 Yes [id number] 1{each} Insert 1 [facility] 0.12-0.015 1-22 Each into ity of mg/24 hr 00:00: vagina [place] vaginal 00 once every Medica l insert month. Branch Insert vaginally and leave in place for 3 consecutiv e weeks, then remove for 1 week. lactated 2021-08- No [id number] 500mL [facility] vers ringers IV -30 06-18 ity of infusion 21:45: 20:39 [place] 500 mL 00 :00 Medical Branch lactated 2021-08- No [id number] 500mL at 20 Un joyb ringers IV -18 11-18 mL/hr, 500 it y of infusion 21:45: 20:39 mL, IV [place] 500 mL 00 :00 Infusion, Medical ONCE, 1 Branch dose, On Sun06/30/22 at 1545, Routine lactated 2021-08- No [id number] 500mL [facility] vers ringers IV -18 11-18 ity of infusion 21:45: 20:39 [place] 500 mL 00 :00 Medical Branch lactated 2021-08- No [id number] 500mL at 20 Un joby ringers IV 08-30-18 mL/hr, 500 it y of infusion 21:45: 20:39 mL, IV [place] 500 mL 00 :00 Infusion, Medical ONCE, 1 Branch dose, On 06/30/22 at 1545, Routine lidocaine 2021-08- No [id number] 10mL [facility] vers 1% (PF) 08-30 ity of (XYLOCAINE) 20:37: 20:37 [place] injection 00 :00 Medical 10 mL Branch triamcinolo 2021-08- No [id number] 80mg U nivers ne 08-30 ity of acetonide 20:37: 20:38 [place] (KENALOG) 00 :00 Medical injection Branch 80 mg triamcinolo 2021-08- No [id number] 80mg 80 mg, [facility] ne 08-30 Infiltrati ity of acetonide 20:37: 20:38 [place], [place] (KE[place] 00 :00 1 dose, On Medi nirmal injection Fri Branch 80 mg 06/30/22 at 1445, Routine lidocaine 2021-08- No [id number] 10mL 10 mL, U nivers 1% (PF) 08-30 Infiltrati ity o f (XYLOCAINE) 20:37: 20:37 on, ONCE, [place] injection 00 :00 1 dose, On Medi nirmal 10 mL Fri Branch 06/30/22 at 1445, Routine lidocaine 2021-08- No [id number] 10mL [facility] vers 1% (PF) 08-30 ity of (XYLOCAINE) 20:37: 20:37 [place] injection 00 :00 Medical 10 mL Branch triamcinolo 2021-08- No [id number] 80mg U nivers ne 08-30 ity of acetonide 20:37: 20:38 [place] (KENALOG) 00 :00 Medical injection Branch 80 mg triamcinolo 2021-08- No [id number] 80mg 80 mg, Univers ne 08-30 Infiltrati ity of acetonide 20:37: 20:38 on[place]CE, [place] (KE[place]LOG[place] 00 :00 1 dose, On Medi nirmal injection Fri Branch 80 mg 06/30/22 at 1445, Routine lidocaine 2021-08- No [id number] 10mL 10 mL, U nivers 1% (PF) 08-30 Infiltrati ity o f (XYLOCAINE) 20:37: 20:37 on, ONCE, [place] injection 00 :00 1 dose, On Medi nirmal 10 mL Fri Branch 06/30/22 at 1445, Routine bupivacaine 2021-08- No [id number] 4mL U nivers (preserv 08-30 ity of free) 20:36: 20:38 [place] (SENSORCAIN 00 :00 Medical E MPF) 0.25 Branch % (2.5 mg/mL) injection 4 mL bupivacaine 2021-08- No [id number] 4mL 4 mL, Univers (preserv 08-30 Infiltrati ity of free) 20:36: 20:38 on, ONCE, [place] (SENSORCAIN 00 :00 1 dose, On Me dical E MPF) 0.25 Fri Branch % (2.5 06/30/22 mg/mL) at 1445, injection 4 Routine mL bupivacaine 2021-08- No [id number] 4mL U nivers (preserv 08-30 ity of free) 20:36: 20:38 [place] (SENSORCAIN 00 :00 Medical E MPF) 0.25 Branch % (2.5 mg/mL) injection 4 mL bupivacaine 2021-08- No [id number] 4mL 4 mL, Univers (preserv 08-30 Infiltrati ity of free) 20:36: 20:38 on, ONCE, [place] (SENSORCAIN 00 :00 1 dose, On Me dical E MPF) 0.25 Fri Branch % (2.5 06/30/22 mg/mL) at 1445, injection 4 Routine mL HYDROXYZINE 2021-08 Yes [id number] TAKE 1 [facility] 25 mg 1-16 TABLET BY ity of tablet 00:00: MOUTH [place] 00 EVERY 8 Medical HOURS Branch NEEDED FOR ITCHING PROMETHAZIN 2021-08 Yes [id number] TAKE 1 [facility] E 12.5 mg 1-16 TABLET BY ity o f tablet 00:00: MOUTH ONCE [place] 00 DAILY Medical NEEDED FOR Branch NAUSEA AND VOMITING HYDROXYZINE 2021-08 Yes [id number] TAKE 1 [facility] 25 mg 1-16 TABLET BY ity of tablet 00:00: MOUTH [place] 00 EVERY 8 Medical HOURS Branch NEEDED FOR ITCHING PROMETHAZIN 2021-08 Yes [id number] TAKE 1 [facility] E 12.5 mg 1-16 TABLET BY ity o f tablet 00:00: MOUTH ONCE 00 DAILY Medical NEEDED FOR Branch NAUSEA AND VOMITING HYDROXYZINE 2021-08 Yes [id number] TAKE 1 [facility] 25 mg 1-16 TABLET BY ity of tablet 00:00: MOUTH [place] 00 EVERY 8 Medical HOURS Branch NEEDED FOR ITCHING PROMETHAZIN 2021-08 Yes [id number] TAKE 1 [facility] E 12.5 mg 1-16 TABLET BY ity o f tablet 00:00: MOUTH ONCE 00 DAILY Medical NEEDED FOR Branch NAUSEA AND VOMITING HYDROXYZINE 2021-08 Yes [id number] TAKE 1 [facility] 25 mg 1-16 TABLET BY ity of tablet 00:00: MOUTH 00 EVERY 8 Medical HOURS Branch NEEDED FOR ITCHING PROMETHAZIN 2021-08 Yes [id number] TAKE 1 [facility] E 12.5 mg 1-16 TABLET BY ity o f tablet 00:00: MOUTH ONCE 00 DAILY Medical NEEDED FOR Branch NAUSEA AND VOMITING HYDROXYZINE 2021-08 Yes [id number] TAKE 1 [facility] 25 mg 1-16 TABLET BY ity of tablet 00:00: MOUTH 00 EVERY 8 Medical HOURS Branch NEEDED FOR ITCHING PROMETHAZIN 2021-08 Yes [id number] TAKE 1 [facility] E 12.5 mg 1-16 TABLET BY ity o f tablet 00:00: MOUTH ONCE 00 DAILY Medical NEEDED FOR Branch NAUSEA AND VOMITING HYDROXYZINE 2021-08 Yes [id number] TAKE 1 [facility] 25 mg 1-16 TABLET BY ity of tablet 00:00: MOUTH [place] 00 EVERY 8 Medical HOURS Branch NEEDED FOR ITCHING PROMETHAZIN 2021-08 Yes [id number] TAKE 1 [facility] E 12.5 mg 1-16 TABLET BY ity o f tablet 00:00: MOUTH ONCE 00 DAILY Medical NEEDED FOR Branch NAUSEA AND VOMITING HYDROXYZINE 2021-08 Yes [id number] TAKE 1 [facility] 25 mg 1-16 TABLET BY ity of tablet 00:00: MOUTH [place] 00 EVERY 8 Medical HOURS Branch NEEDED FOR ITCHING PROMETHAZIN 2021-08 Yes [id number] TAKE 1 [facility] E 12.5 mg 1-16 TABLET BY ity o f tablet 00:00: MOUTH ONCE [place] 00 DAILY Medical NEEDED FOR Branch NAUSEA AND VOMITING HYDROXYZINE 2-1 Yes [id number] TAKE 1 [facility] 25 mg 1-16 TABLET BY ity of tablet 00:00: MOUTH [place] 00 EVERY 8 Medical HOURS Branch NEEDED FOR ITCHING HYDROXYZINE 2-1 Yes [id number] TAKE 1 [facility] 25 mg 1-16 TABLET BY ity of tablet 00:00: MOUTH [place] 00 EVERY 8 Medical HOURS Branch NEEDED FOR ITCHING HYDROXYZINE 2-1 Yes [id number] TAKE 1 [facility] 25 mg 1-16 TABLET BY ity of tablet 00:00: MOUTH [place] 00 EVERY 8 Medical HOURS Branch NEEDED FOR ITCHING HYDROXYZINE 2-1 Yes [id number] TAKE 1 [facility] 25 mg 1-16 TABLET BY ity of tablet 00:00: MOUTH [place] 00 EVERY 8 Medical HOURS Branch NEEDED FOR ITCHING HYDROXYZINE 2021-1 Yes [id number] TAKE 1 [facility] 25 mg 1-16 TABLET BY ity of tablet 00:00: MOUTH [place] 00 EVERY 8 Medical HOURS Branch NEEDED FOR ITCHING HYDROXYZINE 2-1 Yes [id number] TAKE 1 [facility] 25 mg 1-16 TABLET BY ity of tablet 00:00: MOUTH [place] 00 EVERY 8 Medical HOURS Branch NEEDED FOR ITCHING HYDROXYZINE 2-1 Yes [id number] TAKE 1 [facility] 25 mg 1-16 TABLET BY ity of tablet 00:00: MOUTH [place] 00 EVERY 8 Medical HOURS Branch NEEDED FOR ITCHING HYDROXYZINE 2-1 Yes [id number] TAKE 1 [facility] 25 mg 1-16 TABLET BY ity of tablet 00:00: MOUTH [place] 00 EVERY 8 Medical HOURS Branch NEEDED FOR ITCHING HYDROXYZINE 2-1 Yes [id number] TAKE 1 [facility] 25 mg 1-16 TABLET BY ity of tablet 00:00: MOUTH [place] 00 EVERY 8 Medical HOURS Branch NEEDED FOR ITCHING HYDROXYZINE 2-1 Yes [id number] TAKE 1 [facility] 25 mg 1-16 TABLET BY ity of tablet 00:00: MOUTH [place] 00 EVERY 8 Medical HOURS Branch NEEDED FOR ITCHING HYDROXYZINE 2-1 Yes [id number] TAKE 1 [facility] 25 mg 1-16 TABLET BY ity of tablet 00:00: MOUTH [place] 00 EVERY 8 Medical HOURS Branch NEEDED FOR ITCHING HYDROXYZINE 2-1 Yes [id number] TAKE 1 [facility] 25 mg 1-16 TABLET BY ity of tablet 00:00: MOUTH [place] 00 EVERY 8 Medical HOURS Branch NEEDED FOR ITCHING HYDROXYZINE 2021-08 Yes [id number] TAKE 1 [facility] 25 mg 1-16 TABLET BY ity of tablet 00:00: MOUTH [place] 00 EVERY 8 Medical HOURS Branch NEEDED FOR ITCHING HYDROXYZINE 2021-08 Yes [id number] TAKE 1 [facility] 25 mg 1-16 TABLET BY ity of tablet 00:00: MOUTH [place] 00 EVERY 8 Medical HOURS Branch NEEDED FOR ITCHING HYDROXYZINE 2021-08 Yes [id number] TAKE 1 [facility] 25 mg 1-16 TABLET BY ity of tablet 00:00: MOUTH [place] 00 EVERY 8 Medical HOURS Branch NEEDED FOR ITCHING HYDROXYZINE 2021-08- No [id number] TAKE 1 [facility] 25 mg 1-16 01-04 TABLET BY ity of tablet 00:00: 00:00 MOUTH [place] 00 :00 EVERY 8 Medical HOURS Branch NEEDED FOR ITCHING HYDROXYZINE 2021-08- No [id number] TAKE 1 [facility] 25 mg 1-16 01-04 TABLET BY ity of tablet 00:00: 00:00 MOUTH [place] 00 :00 EVERY 8 Medical HOURS Branch NEEDED FOR ITCHING HYDROXYZINE 2021-08- No [id number] TAKE 1 [facility] 25 mg 1-16 -04 TABLET BY ity of tablet 00:00: 00:00 MOUTH [place] 00 :00 EVERY 8 Medical HOURS Branch NEEDED FOR ITCHING HYDROXYZINE 2021-2022- No [id number] TAKE 1 [facility] 25 mg 1-16 -04 TABLET BY ity of tablet 00:00: 00:00 MOUTH [place] 00 :00 EVERY 8 Medical HOURS Branch NEEDED FOR ITCHING HYDROXYZINE 2021-2022- No [id number] TAKE 1 [facility] 25 mg 1-16 01-04 TABLET BY ity of tablet 00:00: 00:00 MOUTH [place] 00 :00 EVERY 8 Medical HOURS Branch NEEDED FOR ITCHING HYDROXYZINE 2021-2022- No [id number] TAKE 1 [facility] 25 mg 1-16 -04 TABLET BY ity of tablet 00:00: 00:00 MOUTH [place] 00 :00 EVERY 8 Medical HOURS Branch NEEDED FOR ITCHING PROMETHAZIN 2021-2021- No [id number] TAKE 1 [facility] E 12.5 mg 1-16 12-05 TABLET BY ity of tablet 00:00: 00:00 MOUTH [place]CE [place] 00 :00 DAILY Medical NEEDED FOR Branch NAUSEA AND VOMITING PROMETHAZIN 2021-08- No [id number] TAKE 1 [facility] E 12.5 mg -16 -05 TABLET BY ity of tablet 00:00: 00:00 M[place]TH [place]CE [place] 00 :00 DAILY Medical NEEDED FOR Branch NAUSEA AND VOMITING PROMETHAZIN 2021-08- No [id number] TAKE 1 [facility] E 12.5 mg -16 -05 TABLET BY ity of tablet 00:00: 00:00 MOUTH [place]CE [place] 00 :00 DAILY Medical NEEDED FOR Branch NAUSEA AND VOMITING PROMETHAZIN 2021-08- No [id number] TAKE 1 [facility] E 12.5 mg -16 -05 TABLET BY ity of tablet 00:00: 00:00 M[place]TH [place]CE [place] 00 :00 DAILY Medical NEEDED FOR Branch NAUSEA AND VOMITING proMETHazin 2021-08 Yes [id number] 12.5mg Take 1 [facility] e 12.5 mg 0-10 tablet by ity o f tablet 00:00: mouth once 00 daily as Medical needed for Branch Nausea and Vomiting (N/V). proMETHazin 2021-08 Yes [id number] 12.5mg Take 1 [facility] e 12.5 mg 0-10 tablet by ity o f tablet 00:00: mouth once 00 daily as Medical needed for Branch Nausea and Vomiting (N/V). proMETHazin 2021-08 Yes [id number] 12.5mg Take 1 [facility] e 12.5 mg 0-10 tablet by ity o f tablet 00:00: mouth once 00 daily as Medical needed for Branch Nausea and Vomiting (N/V). proMETHazin 2021-08 Yes [id number] 12.5mg Take 1 [facility] e 12.5 mg 0-10 tablet by ity o f tablet 00:00: mouth once 00 daily as Medical needed for Branch Nausea and Vomiting (N/V). proMETHazin 2021-08 Yes [id number] 12.5mg Take 1 [facility] e 12.5 mg 0-10 tablet by ity o f tablet 00:00: mouth once 00 daily as Medical needed for Branch Nausea and Vomiting (N/V). proMETHazin 2021-08 Yes [id number] 12.5mg Take 1 [facility] e 12.5 mg 0-10 tablet by ity o f tablet 00:00: mouth once [place] 00 daily as Medical needed for Branch Nausea and Vomiting (N/V). proMETHazin 2021-08- No [id number] 12.5mg Take 1 [facility] e 12.5 mg 0-10 11-16 tablet by ity of tablet 00:00: 00:00 mouth [place] 00 :00 daily as Medical needed for Branch Nausea and Vomiting (N/V). gabapentin 2021-08 Yes [id number] 400mg Take 1 [facility] 400 mg 0-04 9100 capsule by ity of capsule 00:00: mouth in [place] 00 the Medical morning Branch and 1 capsule at noon and 1 capsule in the evening. tiZANidine 2021-08 Yes [id number] 4mg Take 1 [facility] 4 mg tablet 0-04 9100 tablet by ity of 00:00: mouth 3 00 (three) Medical times Branch daily as needed (muscle spasm). meloxicam 2021-08 Yes [id number] 15mg Take 1 Un joby 15 mg 0-04 tablet by ity of tablet 00:00: mouth in [place] 00 the Medical morning. Branch gabapentin 2021-08 Yes [id number] 400mg Take 1 [facility] 400 mg 0-04 9100 capsule by ity of capsule 00:00: mouth in [place] 00 the Medical morning Branch and 1 capsule at noon and 1 capsule in the evening. tiZANidine 2021-08 Yes [id number] 4mg Take 1 [facility] 4 mg tablet 0-04 9100 tablet by ity of 00:00: mouth 3 [place] 00 (three) Medical times Branch daily as needed (muscle spasm). meloxicam 2021-08 Yes [id number] 15mg Take 1 Un joby 15 mg 0-04 tablet by ity of tablet 00:00: mouth in [place] 00 the Medical morning. Branch gabapentin 2021-08 Yes [id number] 400mg Take 1 [facility] 400 mg 0-04 9100 capsule by ity of capsule 00:00: mouth in [place] 00 the Medical morning Branch and 1 capsule at noon and 1 capsule in the evening. tiZANidine 2021-08 Yes [id number] 4mg Take 1 [facility] 4 mg tablet 0-04 9100 tablet by ity of 00:00: mouth 3 [place] 00 (three) Medical times Branch daily as needed (muscle spasm). meloxicam 2021-08 Yes [id number] 15mg Take 1 Un joby 15 mg 0-04 tablet by ity of tablet 00:00: mouth in [place] the Medical morning. Branch gabapentin 2021-08 Yes [id number] 400mg Take 1 [facility] 400 mg 0-04 9100 capsule by ity of capsule 00:00: mouth in [place] the Medical morning Branch and 1 capsule at noon and 1 capsule in the evening. tiZANidine 2021-08 Yes [id number] 4mg Take 1 [facility] 4 mg tablet 0-04 9100 tablet by ity of 00:00: mouth 3 (three) Medical times Branch daily as needed (muscle spasm). meloxicam 2021-08 Yes [id number] 15mg Take 1 Un joby 15 mg 0-04 tablet by ity of tablet 00:00: mouth in [place] the Medical morning. Branch gabapentin 2021-08 Yes [id number] 400mg Take 1 [facility] 400 mg 0-04 9100 capsule by ity of capsule 00:00: mouth in [place] the Medical morning Branch and 1 capsule at noon and 1 capsule in the evening. tiZANidine 2021-08 Yes [id number] 4mg Take 1 [facility] 4 mg tablet 0-04 9100 tablet by ity of 00:00: mouth 3 (three) Medical times Branch daily as needed (muscle spasm). meloxicam 2021-08 Yes [id number] 15mg Take 1 Un joby 15 mg 0-04 tablet by ity of tablet 00:00: mouth in [place] the Medical morning. Branch gabapentin 2021-08 Yes [id number] 400mg Take 1 [facility] 400 mg 0-04 9100 capsule by ity of capsule 00:00: mouth in [place] the Medical morning Branch and 1 capsule at noon and 1 capsule in the evening. tiZANidine 2021-08 Yes [id number] 4mg Take 1 [facility] 4 mg tablet 0-04 9100 tablet by ity of 00:00: mouth 3 [place] (three) Medical times Branch daily as needed (muscle spasm). meloxicam 2021-08 Yes [id number] 15mg Take 1 Un joby 15 mg 0-04 tablet by ity of tablet 00:00: mouth in [place] the Medical morning. Branch gabapentin 2021-08 Yes [id number] 400mg Take 1 [facility] 400 mg 0-04 9100 capsule by ity of capsule 00:00: mouth in [place] the Medical morning Branch and 1 capsule at noon and 1 capsule in the evening. tiZANidine 2021-08 Yes [id number] 4mg Take 1 [facility] 4 mg tablet 0-04 9100 tablet by ity of 00:00: mouth 3 [place] (three) Medical times [place] daily as needed (muscle spasm). meloxicam 2021-08 Yes [id number] 15mg Take 1 Un job[facility] 15 mg 0-04 tablet by ity of tablet 00:00: mouth in [place] [address] the Medical morning. Branch gabapentin 2021-08 Yes [id number] 400mg Take 1 [facility] 400 mg 0-04 9100 capsule by ity of capsule 00:00: mouth in [place] [address] the Medical morning Branch and 1 capsule at noon and 1 capsule in the evening. tiZANidine 2021-08 Yes [id number] 4mg Take 1 [facility] 4 mg tablet 0-04 9100 tablet by ity of 00:00: mouth [place] [address] () [facility] times [place] daily as needed (muscle spasm). gabapentin 2021-08 Yes [id number] 400mg Take 1 [facility] 400 mg 0-04 9100 capsule by ity of capsule 00:00: mouth in [place] the [facility] morning Branch and 1 capsule at noon and 1 capsule in the evening. tiZANidine 2021-08 Yes [id number] 4mg Take 1 [facility] 4 mg tablet 0-04 9100 tablet by ity of 00:00: mouth [place] [address] () [facility] times [place] daily as needed (muscle spasm). gabapentin 2021-08 Yes [id number] 400mg Take 1 [facility] 400 mg 0-04 9100 capsule by ity of capsule 00:00: mouth in [place] [address] the Medical morning Branch and 1 capsule at noon and 1 capsule in the evening. tiZANidine 2021-08 Yes [id number] 4mg Take 1 [facility] 4 mg tablet 0-04 9100 tablet by ity of 00:00: mouth 3 [place] [address] (three) [facility] times [place] daily as needed (muscle spasm). gabapentin 2021-08 Yes [id number] 400mg Take 1 [facility] 400 mg 0-04 9100 capsule by ity of capsule 00:00: mouth in [place] the Medical morning Branch and 1 capsule at noon and 1 capsule in the evening. tiZANidine 2021-08 Yes [id number] 4mg Take 1 [facility] 4 mg tablet 0-04 9100 tablet by ity of 00:00: mouth 3 (three) Medical times Branch daily as needed (muscle spasm). gabapentin 2021-08 Yes [id number] 400mg Take 1 [facility] 400 mg 0-04 9100 capsule by ity of capsule 00:00: mouth in [place] 00 the Medical morning Branch and 1 capsule at noon and 1 capsule in the evening. tiZANidine 2021-08 Yes [id number] 4mg Take 1 [facility] 4 mg tablet 0-04 9100 tablet by ity of 00:00: mouth 3 [place] (three) Medical times Branch daily as needed (muscle spasm). gabapentin 2021-08 Yes [id number] 400mg Take 1 [facility] 400 mg 0-04 9100 capsule by ity of capsule 00:00: mouth in [place] [address] the Medical morning Branch and 1 capsule at noon and 1 capsule in the evening. tiZANidine 2021-08 Yes [id number] 4mg Take 1 [facility] 4 mg tablet 0-04 9100 tablet by ity of 00:00: mouth [place] (three) Medical times Branch daily as needed (muscle spasm). gabapentin 2021-08 Yes [id number] 400mg Take 1 [facility] 400 mg 0-04 9100 capsule by ity of capsule 00:00: mouth in [place] [address] the Medical morning Branch and 1 capsule at noon and 1 capsule in the evening. tiZANidine 2021-08 Yes [id number] 4mg Take 1 [facility] 4 mg tablet 0-04 9100 tablet by ity of 00:00: mouth 3 [place] (three) Medical times Branch daily as needed (muscle spasm). gabapentin 2021-08 Yes [id number] 400mg Take 1 [facility] 400 mg 0-04 9100 capsule by ity of capsule 00:00: mouth in [place] [address] the Medical morning Branch and 1 capsule at noon and 1 capsule in the evening. tiZANidine 2021-08 Yes [id number] 4mg Take 1 [facility] 4 mg tablet 0-04 9100 tablet by ity of 00:00: mouth 3 [place] (three) Medical times Branch daily as needed (muscle spasm). gabapentin 2021-08 Yes [id number] 400mg Take 1 [facility] 400 mg 0-04 9100 capsule by ity of capsule 00:00: mouth in [place] 00 the Medical morning Branch and 1 capsule at noon and 1 capsule in the evening. tiZANidine 2021-08 Yes [id number] 4mg Take 1 [facility] 4 mg tablet 0-04 9100 tablet by ity of 00:00: mouth 3 [place] (three) Medical times [place] daily as needed (muscle spasm). gabapentin 2021-08 Yes [id number] 400mg Take 1 [facility] 400 mg 0-04 9100 capsule by ity of capsule 00:00: mouth in [place] [address] the Medical morning Branch and 1 capsule at noon and 1 capsule in the evening. tiZANidine 2021-08 Yes [id number] 4mg Take 1 [facility] 4 mg tablet 0-04 9100 tablet by ity of 00:00: mouth 3 [place] [address] (three) Medical times [place] daily as needed (muscle spasm). gabapentin 2021-08 Yes [id number] 400mg Take 1 [facility] 400 mg 0-04 9100 capsule by ity of capsule 00:00: mouth in [place] [address] the [facility] morning Branch and 1 capsule at noon and 1 capsule in the evening. tiZANidine 2021-08 Yes [id number] 4mg Take 1 [facility] 4 mg tablet 0-04 9100 tablet by ity of 00:00: mouth 3 [place] [address] (three) [facility] times [place] daily as needed (muscle spasm). gabapentin 2021-08 Yes [id number] 400mg Take 1 [facility] 400 mg 0-04 9100 capsule by ity of capsule 00:00: mouth in [place] [address] the Medical morning Branch and 1 capsule at noon and 1 capsule in the evening. tiZANidine 2021-08 Yes [id number] 4mg Take 1 [facility] 4 mg tablet 0-04 9100 tablet by ity of 00:00: mouth 3 [place] [address] (three) Medical times [place] daily as needed (muscle spasm). gabapentin 2021-08 Yes [id number] 400mg Take 1 [facility] 400 mg 0-04 9100 capsule by ity of capsule 00:00: mouth in [place] [address] the Medical morning Branch and 1 capsule at noon and 1 capsule in the evening. tiZANidine 2021-08 Yes [id number] 4mg Take 1 [facility] 4 mg tablet 0-04 9100 tablet by ity of 00:00: mouth 3 [place] [address] (three) Medical times [place] daily as needed (muscle spasm). gabapentin 2021-08 Yes [id number] 400mg Take 1 [facility] 400 mg 0-04 9100 capsule by ity of capsule 00:00: mouth in [place] [address] the Medical morning [place] and 1 capsule at noon and 1 capsule in the evening. tiZANidine 2021-08 Yes [id number] 4mg Take 1 [facility] 4 mg tablet 0-04 9100 tablet by ity of 00:00: mouth 3 [place] (three) Medical times [place] daily as needed (muscle spasm). gabapentin 2021-08 Yes [id number] 400mg Take 1 [facility] 400 mg 0-04 9100 capsule by ity of capsule 00:00: mouth in [place] [address] the [facility] morning [place] and 1 capsule at noon and 1 capsule in the evening. tiZANidine 2021-08 Yes [id number] 4mg Take 1 [facility] 4 mg tablet 0-04 9100 tablet by ity of 00:00: mouth 3 [place] [address] (three) [facility] times [place] daily as needed (muscle spasm). gabapentin 2021-08 Yes [id number] 400mg Take 1 [facility] 400 mg 0-04 9100 capsule by ity of capsule 00:00: mouth in [place] [address] the [facility] morning [place] and 1 capsule at noon and 1 capsule in the evening. gabapentin 2021-08 Yes [id number] 400mg Take 1 [facility] 400 mg 0-04 9100 capsule by ity of capsule 00:00: mouth in [place] [address] the [facility] morning [place] and 1 capsule at noon and 1 capsule in the evening. gabapentin 2021-08 Yes [id number] 400mg Take 1 [facility] 400 mg 0-04 9100 capsule by ity of capsule 00:00: mouth in [place] [address] the Medical morning Branch and 1 capsule at noon and 1 capsule in the evening. gabapentin 2021- Yes [id number] 400mg Take 1 [facility] 400 mg 0-04 9100 capsule by ity of capsule 00:00: mouth in [address] morning [place] and 1 capsule at noon and 1 capsule in the evening. gabapentin 2021- Yes [id number] 400mg Take 1 [facility] 400 mg 0-04 9100 capsule by ity of capsule 00:00: mouth in [address] morning Branch and 1 capsule at noon and 1 capsule in the evening. gabapentin 2021-08 Yes [id number] 400mg Take 1 [facility] 400 mg 0-04 9100 capsule by ity of capsule 00:00: mouth in [place] the Medical morning Branch and 1 capsule at noon and 1 capsule in the evening. tiZANidine 2021-08 Yes [id number] 4mg Take 1 [facility] 4 mg tablet 0-04 9100 tablet by ity of 00:00: mouth 3 [place] (three) Medical times [place] daily as needed (muscle spasm). meloxicam 2021-08 Yes [id number] 15mg Take 1 Un joby 15 mg 0-04 tablet by ity of tablet 00:00: mouth in [place] the Medical morning. Branch gabapentin 2021-08 Yes [id number] 400mg Take 1 [facility] 400 mg 0-04 9100 capsule by ity of capsule 00:00: mouth in [place] the Medical morning Branch and 1 capsule at noon and 1 capsule in the evening. tiZANidine 2021-08 Yes [id number] 4mg Take 1 [facility] 4 mg tablet 0-04 9100 tablet by ity of 00:00: mouth 3 [place] (three) [facility] times [place] daily as needed (muscle spasm). meloxicam 2021-08 Yes [id number] 15mg Take 1 Un joby 15 mg 0-04 tablet by ity of tablet 00:00: mouth in [place] the Medical morning. Branch gabapentin 2021-08 Yes [id number] 400mg Take 1 [facility] 400 mg 0-04 9100 capsule by ity of capsule 00:00: mouth in [place] the morning Branch and 1 capsule at noon and 1 capsule in the evening. tiZANidine 2021-08 Yes [id number] 4mg Take 1 [facility] 4 mg tablet 0-04 9100 tablet by ity of 00:00: mouth 3 [place] (three) Medical times [place] daily as needed (muscle spasm). meloxicam 2021-08 Yes [id number] 15mg Take 1 Un job[facility] 15 mg 0-04 tablet by ity of tablet 00:00: mouth in [place] the Medical morning. Branch gabapentin 2021-08 Yes [id number] 400mg Take 1 [facility] 400 mg 0-04 9100 capsule by ity of capsule 00:00: mouth in [place] the Medical morning Branch and 1 capsule at noon and 1 capsule in the evening. tiZANidine 2021-08 Yes [id number] 4mg Take 1 [facility] 4 mg tablet 0-04 9100 tablet by ity of 00:00: mouth 3 [place] (three) Medical times [place] daily as needed (muscle spasm). meloxicam 2021-08 Yes [id number] 15mg Take 1 Un [facility] 15 mg 0-04 tablet by ity of tablet 00:00: mouth in [place] the Medical morning. Branch gabapentin 2021-08 Yes [id number] 400mg Take 1 [facility] 400 mg 0-04 9100 capsule by ity of capsule 00:00: mouth in [place] the Medical morning Branch and 1 capsule at noon and 1 capsule in the evening. tiZANidine 2021-08 Yes [id number] 4mg Take 1 [facility] 4 mg tablet 0-04 9100 tablet by ity of 00:00: mouth 3 [place] (three) Medical times [place] daily as needed (muscle spasm). meloxicam 2021-08 Yes [id number] 15mg Take 1 Un job[facility] 15 mg 0-04 tablet by ity of tablet 00:00: mouth in [place] the Medical morning. Branch gabapentin 2021-08 Yes [id number] 400mg Take 1 [facility] 400 mg 0-04 9100 capsule by ity of capsule 00:00: mouth in [place] the Medical morning Branch and 1 capsule at noon and 1 capsule in the evening. tiZANidine 2021-08 Yes [id number] 4mg Take 1 [facility] 4 mg tablet 0-04 9100 tablet by ity of 00:00: mouth 3 [place] (three) Medical times [place] daily as needed (muscle spasm). meloxicam 2021-08 Yes [id number] 15mg Take 1 Un job[facility] 15 mg 0-04 tablet by ity of tablet 00:00: mouth in [place] the Medical morning. Branch gabapentin 2021-08 Yes [id number] 400mg Take 1 [facility] 400 mg 0-04 9100 capsule by ity of capsule 00:00: mouth in [place] the Medical morning Branch and 1 capsule at noon and 1 capsule in the evening. tiZANidine 2021-08 Yes [id number] 4mg Take 1 [facility] 4 mg tablet 0-04 9100 tablet by ity of 00:00: mouth 3 [place] [address] (three) Medical times Branch daily as needed (muscle spasm). meloxicam 2021-08 Yes [id number] 15mg Take 1 Un job[facility] 15 mg 0-04 tablet by ity of tablet 00:00: mouth in [place] the Medical morning. Branch gabapentin 2021-08 Yes [id number] 400mg Take 1 [facility] 400 mg 0-04 9100 capsule by ity of capsule 00:00: mouth in [place] the Medical morning Branch and 1 capsule at noon and 1 capsule in the evening. tiZANidine 2021-08 Yes [id number] 4mg Take 1 [facility] 4 mg tablet 0-04 9100 tablet by ity of 00:00: mouth 3 [place] (three) Medical times [place] daily as needed (muscle spasm). meloxicam 2021-08 Yes [id number] 15mg Take 1 Un [facility] 15 mg 0-04 tablet by ity of tablet 00:00: mouth in [place] the Medical morning. Branch gabapentin 2021-08 Yes [id number] 400mg Take 1 [facility] 400 mg 0-04 9100 capsule by ity of capsule 00:00: mouth in [place] the Medical morning Branch and 1 capsule at noon and 1 capsule in the evening. tiZANidine 2021-08 Yes [id number] 4mg Take 1 [facility] 4 mg tablet 0-04 9100 tablet by ity of 00:00: mouth 3 [place] (three) Medical times [place] daily as needed (muscle spasm). meloxicam 2021-08 Yes [id number] 15mg Take 1 Un [facility] 15 mg 0-04 tablet by ity of tablet 00:00: mouth in [place] the Medical morning. Branch gabapentin 2021-08 Yes [id number] 400mg Take 1 [facility] 400 mg 0-04 9100 capsule by [facility] of capsule 00:00: mouth in [place] the Medical morning Branch and 1 capsule at noon and 1 capsule in the evening. tiZANidine 2021-08 Yes [id number] 4mg Take 1 [facility] 4 mg tablet 0-04 9100 tablet by [facility] of 00:00: mouth 3 [place] (three) Medical times [place] daily as needed (muscle spasm). meloxicam 2021-08 Yes [id number] 15mg Take 1 [facility] 15 mg 0-04 tablet by [facility] of tablet 00:00: mouth in [place] the Medical morning. Branch gabapentin 2021-08 Yes [id number] 400mg Take 1 [facility] 400 mg 0-04 9100 capsule by [facility] of capsule 00:00: mouth in [place] the Medical morning Branch and 1 capsule at noon and 1 capsule in the evening. tiZANidine 2021-08 Yes [id number] 4mg Take 1 [facility] 4 mg tablet 0-04 9100 tablet by it[facility] of 00:00: mouth 3 [place] (three) Medical times [place] daily as needed (muscle spasm). meloxicam 2021-08 Yes [id number] 15mg Take 1 [facility] 15 mg 0-04 tablet by [facility] of tablet 00:00: mouth in [place] the Medical morning. Branch gabapentin 2021-08 Yes [id number] 400mg Take 1 [facility] 400 mg 0-04 9100 capsule by [facility] of capsule 00:00: mouth in [place] the Medical morning Branch and 1 capsule at noon and 1 capsule in the evening. tiZANidine 2021-08 Yes [id number] 4mg Take 1 [facility] 4 mg tablet 0-04 9100 tablet by ity of 00:00: mouth 3 [place] (three) Medical times [place] daily as needed (muscle spasm). meloxicam 2021-08 Yes [id number] 15mg Take 1 [facility] 15 mg 0-04 tablet by [facility] of tablet 00:00: mouth in [place] the Medical morning. Branch gabapentin 2021-08 Yes [id number] 400mg Take 1 [facility] 400 mg 0-04 9100 capsule by [facility] of capsule 00:00: mouth in [place] the Medical morning Branch and 1 capsule at noon and 1 capsule in the evening. tiZANidine 2021-08 Yes [id number] 4mg Take 1 [facility] 4 mg tablet 0-04 9100 tablet by [facility] of 00:00: mouth 3 [place] (three) Medical times [place] daily as needed (muscle spasm). meloxicam 2021-08 Yes [id number] 15mg Take 1 [facility] 15 mg 0-04 tablet by [facility] of tablet 00:00: mouth in [place] the Medical morning. Branch gabapentin 2021-08 Yes [id number] 400mg Take 1 [facility] 400 mg 0-04 9100 capsule by [facility] of capsule 00:00: mouth in [place] the Medical morning Branch and 1 capsule at noon and 1 capsule in the evening. tiZANidine 2021-08 Yes [id number] 4mg Take 1 [facility] 4 mg tablet 0-04 9100 tablet by [facility] of 00:00: mouth 3 (three) Medical times Branch daily as needed (muscle spasm). meloxicam 2021-08 Yes [id number] 15mg Take 1 [facility] 15 mg 0-04 tablet by [facility] of tablet 00:00: mouth in [place] 00 the Medical morning. Branch gabapentin 2021-08 Yes [id number] 400mg Take 1 [facility] 400 mg 0-04 9100 capsule by [facility] of capsule 00:00: mouth in [place] 00 the Medical morning Branch and 1 capsule at noon and 1 capsule in the evening. tiZANidine 2021-08 Yes [id number] 4mg Take 1 [facility] 4 mg tablet 0-04 9100 tablet by [facility] of 00:00: mouth 3 [place] (three) Medical times Branch daily as needed (muscle spasm). meloxicam 2021-08 Yes [id number] 15mg Take 1 [facility] 15 mg 0-04 tablet by [facility] of tablet 00:00: mouth in [place] the Medical morning. Branch gabapentin 2021-08 Yes [id number] 400mg Take 1 [facility] 400 mg 0-04 9100 capsule by [facility] of capsule 00:00: mouth in [place] the Medical morning Branch and 1 capsule at noon and 1 capsule in the evening. tiZANidine 2021-08 Yes [id number] 4mg Take 1 [facility] 4 mg tablet 0-04 9100 tablet by [facility] of 00:00: mouth 3 [place] (three) Medical times Branch daily as needed (muscle spasm). meloxicam 2021-08 Yes [id number] 15mg Take 1 [facility] 15 mg 0-04 tablet by [facility] of tablet 00:00: mouth in [place] 00 the Medical morning. Branch gabapentin 2021-08 Yes [id number] 400mg Take 1 [facility] 400 mg 0-04 9100 capsule by [facility] of capsule 00:00: mouth in [place] the Medical morning Branch and 1 capsule at noon and 1 capsule in the evening. tiZANidine 2021-08 Yes [id number] 4mg Take 1 [facility] 4 mg tablet 0-04 9100 tablet by [facility] of 00:00: mouth 3 [place] 00 (three) Medical times Branch daily as needed (muscle spasm). meloxicam 2021-08 Yes [id number] 15mg Take 1 [facility] 15 mg 0-04 tablet by [facility] of tablet 00:00: mouth in [place] the Medical morning. Branch gabapentin 2021-08 Yes [id number] 400mg Take 1 [facility] 400 mg 0-04 9100 capsule by it[facility] of capsule 00:00: mouth in [place] the Medical morning Branch and 1 capsule at noon and 1 capsule in the evening. tiZANidine 2021-08 Yes [id number] 4mg Take 1 [facility] 4 mg tablet 0-04 9100 tablet by it[facility] of 00:00: mouth 3 [place] (three) Medical times Branch daily as needed (muscle spasm). meloxicam 2021-08 Yes [id number] 15mg Take 1 [facility] 15 mg 0-04 tablet by [facility] of tablet 00:00: mouth in [place] the Medical morning. Branch gabapentin 2021-08 Yes [id number] 400mg Take 1 [facility] 400 mg 0-04 9100 capsule by [facility] of capsule 00:00: mouth in [place] the Medical morning Branch and 1 capsule at noon and 1 capsule in the evening. tiZANidine 2021-08 Yes [id number] 4mg Take 1 [facility] 4 mg tablet 0-04 9100 tablet by it[facility] of 00:00: mouth 3 [place] (three) Medical times [place] daily as needed (muscle spasm). meloxicam 2021-08 Yes [id number] 15mg Take 1 [facility] 15 mg 0-04 tablet by [facility] of tablet 00:00: mouth in [place] the Medical morning. Branch gabapentin 2021-08 Yes [id number] 400mg Take 1 [facility] 400 mg 0-04 9100 capsule by it[facility] of capsule 00:00: mouth in [place] the Medical morning Branch and 1 capsule at noon and 1 capsule in the evening. tiZANidine 2021-08 Yes [id number] 4mg Take 1 [facility] 4 mg tablet 0-04 9100 tablet by it[facility] of 00:00: mouth 3 [place] (three) Medical times Branch daily as needed (muscle spasm). meloxicam 2021-08 Yes [id number] 15mg Take 1 [facility] 15 mg 0-04 tablet by [facility] of tablet 00:00: mouth in [place] the Medical morning. Branch gabapentin 2021-08 Yes [id number] 400mg Take 1 [facility] 400 mg 0-04 9100 capsule by [facility] of capsule 00:00: mouth in [place] 00 the Medical morning Branch and 1 capsule at noon and 1 capsule in the evening. tiZANidine 2021-08 Yes [id number] 4mg Take 1 [facility] 4 mg tablet 0-04 9100 tablet by [facility] of 00:00: mouth 3 (three) Medical times [place] daily as needed (muscle spasm). meloxicam 2021-08 Yes [id number] 15mg Take 1 [facility] 15 mg 0-04 tablet by [facility] of tablet 00:00: mouth in [place] the Medical morning. Branch gabapentin 2021-08 Yes [id number] 400mg Take 1 [facility] 400 mg 0-04 9100 capsule by [facility] of capsule 00:00: mouth in [place] the Medical morning Branch and 1 capsule at noon and 1 capsule in the evening. tiZANidine 2021-08 Yes [id number] 4mg Take 1 [facility] 4 mg tablet 0-04 9100 tablet by [facility] of 00:00: mouth 3 (three) Medical times [place] daily as needed (muscle spasm). meloxicam 2021-08 Yes [id number] 15mg Take 1 [facility] 15 mg 0-04 tablet by [facility] of tablet 00:00: mouth in [place] the Medical morning. Branch gabapentin 2021-08 Yes [id number] 400mg Take 1 [facility] 400 mg 0-04 9100 capsule by [facility] of capsule 00:00: mouth in [place] the Medical morning Branch and 1 capsule at noon and 1 capsule in the evening. tiZANidine 2021-08 Yes [id number] 4mg Take 1 [facility] 4 mg tablet 0-04 9100 tablet by [facility] of 00:00: mouth 3 (three) Medical times [place] daily as needed (muscle spasm). meloxicam 2021-08 Yes [id number] 15mg Take 1 [facility] 15 mg 0-04 tablet by [facility] of tablet 00:00: mouth in [place] the Medical morning. Branch gabapentin 2021-08 Yes [id number] 400mg Take 1 [facility] 400 mg 0-04 9100 capsule by [facility] of capsule 00:00: mouth in [place] the Medical morning Branch and 1 capsule at noon and 1 capsule in the evening. tiZANidine 2021-08 Yes [id number] 4mg Take 1 [facility] 4 mg tablet 0-04 9100 tablet by ity of 00:00: mouth 3 (three) Medical times Branch daily as needed (muscle spasm). meloxicam 2021-08 Yes [id number] 15mg Take 1 [facility] 15 mg 0-04 tablet by [facility] of tablet 00:00: mouth in [place] the Medical morning. Branch gabapentin 2021-08 Yes [id number] 400mg Take 1 [facility] 400 mg 0-04 9100 capsule by it[facility] of capsule 00:00: mouth in [place] the Medical morning Branch and 1 capsule at noon and 1 capsule in the evening. tiZANidine 2021-08 Yes [id number] 4mg Take 1 [facility] 4 mg tablet 0-04 9100 tablet by ity of 00:00: mouth 3 [place] (three) Medical times Branch daily as needed (muscle spasm). meloxicam 2021-08 Yes [id number] 15mg Take 1 [facility] 15 mg 0-04 tablet by [facility] of tablet 00:00: mouth in [place] the Medical morning. Branch gabapentin 2021-08 Yes [id number] 400mg Take 1 [facility] 400 mg 0-04 9100 capsule by it[facility] of capsule 00:00: mouth in [place] the Medical morning Branch and 1 capsule at noon and 1 capsule in the evening. tiZANidine 2021-08 Yes [id number] 4mg Take 1 [facility] 4 mg tablet 0-04 9100 tablet by it[facility] of 00:00: mouth 3 (three) Medical times Branch daily as needed (muscle spasm). meloxicam 2021-08 Yes [id number] 15mg Take 1 [facility] 15 mg 0-04 tablet by it[facility] of tablet 00:00: mouth in [place] the Medical morning. Branch gabapentin 2021-08 Yes [id number] 400mg Take 1 [facility] 400 mg 0-04 9100 capsule by ity of capsule 00:00: mouth in [place] the Medical morning Branch and 1 capsule at noon and 1 capsule in the evening. tiZANidine 2021-08 Yes [id number] 4mg Take 1 [facility] 4 mg tablet 0-04 9100 tablet by ity of 00:00: mouth 3 [place] (three) Medical times Branch daily as needed (muscle spasm). meloxicam 2021-08 Yes [id number] 15mg Take 1 [facility] 15 mg 0-04 tablet by ity of tablet 00:00: mouth in [place] the Medical morning. Branch gabapentin 2021-08 Yes [id number] 400mg Take 1 [facility] 400 mg 0-04 9100 capsule by it[facility] of capsule 00:00: mouth in [place] the morning Branch and 1 capsule at noon and 1 capsule in the evening. tiZANidine 2021-08 Yes [id number] 4mg Take 1 [facility] 4 mg tablet 0-04 9100 tablet by ity of 00:00: mouth 3 [place] (three) Medical times [place] daily as needed (muscle spasm). meloxicam 2021-08 Yes [id number] 15mg Take 1 [facility] 15 mg 0-04 tablet by it[facility] of tablet 00:00: mouth in [place] the morning. Branch gabapentin 2021-08 Yes [id number] 400mg Take 1 [facility] 400 mg 0-04 9100 capsule by ity of capsule 00:00: mouth in [place] [address] the morning Branch and 1 capsule at noon and 1 capsule in the evening. tiZANidine 2021-08 Yes [id number] 4mg Take 1 [facility] 4 mg tablet 0-04 9100 tablet by ity of 00:00: mouth 3 [place] (three) [facility] times [place] daily as needed (muscle spasm). meloxicam 2021-08 Yes [id number] 15mg Take 1 [facility] 15 mg 0-04 tablet by ity of tablet 00:00: mouth in [place] the morning. Branch gabapentin 2021-08 Yes [id number] 400mg Take 1 [facility] 400 mg 0-04 9100 capsule by ity of capsule 00:00: mouth in [place] the morning Branch and 1 capsule at noon and 1 capsule in the evening. tiZANidine 2021-08 Yes [id number] 4mg Take 1 [facility] 4 mg tablet 0-04 9100 tablet by ity of 00:00: mouth 3 [place] [address] (three) [facility] times [place] daily as needed (muscle spasm). meloxicam 2021-08 Yes [id number] 15mg Take 1 [facility] 15 mg 0-04 tablet by ity of tablet 00:00: mouth in [place] the Medical morning. Branch gabapentin 2021-08 Yes [id number] 400mg Take 1 [facility] 400 mg 0-04 9100 capsule by ity of capsule 00:00: mouth in [place] [address] the morning Branch and 1 capsule at noon and 1 capsule in the evening. tiZANidine 2021-08 Yes [id number] 4mg Take 1 [facility] 4 mg tablet 0-04 9100 tablet by ity of 00:00: mouth 3 (three) Medical times Branch daily as needed (muscle spasm). meloxicam 2021-08 Yes [id number] 15mg Take 1 [facility] 15 mg 0-04 tablet by ity of tablet 00:00: mouth in [place] the Medical morning. Branch gabapentin 2021-08 Yes [id number] 400mg Take 1 [facility] 400 mg 0-04 9100 capsule by ity of capsule 00:00: mouth in [place] the Medical morning Branch and 1 capsule at noon and 1 capsule in the evening. tiZANidine 2021-08 Yes [id number] 4mg Take 1 [facility] 4 mg tablet 0-04 9100 tablet by ity of 00:00: mouth 3 [place] (three) Medical times [place] daily as needed (muscle spasm). meloxicam 2021-08 Yes [id number] 15mg Take 1 [facility] 15 mg 0-04 tablet by ity of tablet 00:00: mouth in [place] the Medical morning. Branch gabapentin 2021-08 Yes [id number] 400mg Take 1 [facility] 400 mg 0-04 9100 capsule by ity of capsule 00:00: mouth in [place] the Medical morning Branch and 1 capsule at noon and 1 capsule in the evening. tiZANidine 2021-08 Yes [id number] 4mg Take 1 [facility] 4 mg tablet 0-04 9100 tablet by ity of 00:00: mouth 3 [place] (three) Medical times [place] daily as needed (muscle spasm). meloxicam 2021-08 Yes [id number] 15mg Take 1 [facility] 15 mg 0-04 tablet by ity of tablet 00:00: mouth in [place] the Medical morning. Branch gabapentin 2021-08 Yes [id number] 400mg Take 1 [facility] 400 mg 0-04 9100 capsule by ity of capsule 00:00: mouth in [place] the Medical morning Branch and 1 capsule at noon and 1 capsule in the evening. tiZANidine 2021-08 Yes [id number] 4mg Take 1 [facility] 4 mg tablet 0-04 9100 tablet by ity of 00:00: mouth 3 [place] (three) Medical times Branch daily as needed (muscle spasm). meloxicam 2021-08 Yes [id number] 15mg Take 1 [facility] 15 mg 0-04 tablet by ity of tablet 00:00: mouth in [place] the Medical morning. Branch gabapentin 2021-08 Yes [id number] 400mg Take 1 [facility] 400 mg 0-04 9100 capsule by ity of capsule 00:00: mouth in [place] the Medical morning Branch and 1 capsule at noon and 1 capsule in the evening. tiZANidine 2021-08 Yes [id number] 4mg Take 1 [facility] 4 mg tablet 0-04 9100 tablet by ity of 00:00: mouth 3 [place] (three) Medical times [place] daily as needed (muscle spasm). meloxicam 2021-08 Yes [id number] 15mg Take 1 [facility] 15 mg 0-04 tablet by ity of tablet 00:00: mouth in [place] the Medical morning. Branch gabapentin 2021-08 Yes [id number] 400mg Take 1 [facility] 400 mg 0-04 9100 capsule by ity of capsule 00:00: mouth in [place] the Medical morning Branch and 1 capsule at noon and 1 capsule in the evening. tiZANidine 2021-08 Yes [id number] 4mg Take 1 [facility] 4 mg tablet 0-04 9100 tablet by ity of 00:00: mouth 3 [place] (three) Medical times [place] daily as needed (muscle spasm). meloxicam 2021-08 Yes [id number] 15mg Take 1 [facility] 15 mg 0-04 tablet by ity of tablet 00:00: mouth in [place] the Medical morning. Branch gabapentin 2021-08 Yes [id number] 400mg Take 1 [facility] 400 mg 0-04 9100 capsule by ity of capsule 00:00: mouth in [place] the Medical morning Branch and 1 capsule at noon and 1 capsule in the evening. tiZANidine 2021-08 Yes [id number] 4mg Take 1 [facility] 4 mg tablet 0-04 9100 tablet by ity of 00:00: mouth 3 [place] (three) Medical times [place] daily as needed (muscle spasm). meloxicam 2021-08 Yes [id number] 15mg Take 1 [facility] 15 mg 0-04 tablet by ity of tablet 00:00: mouth in [place] the Medical morning. Branch gabapentin 2021-08 Yes [id number] 400mg Take 1 [facility] 400 mg 0-04 9100 capsule by ity of capsule 00:00: mouth in [place] the Medical morning Branch and 1 capsule at noon and 1 capsule in the evening. tiZANidine 2021-08 Yes [id number] 4mg Take 1 [facility] 4 mg tablet 0-04 9100 tablet by ity of 00:00: mouth 3 [place] (three) Medical times [place] daily as needed (muscle spasm). meloxicam 2021-08 Yes [id number] 15mg Take 1 [facility] 15 mg 0-04 tablet by ity of tablet 00:00: mouth in [place] the Medical morning. Branch gabapentin 2021-08 Yes [id number] 400mg Take 1 [facility] 400 mg 0-04 9100 capsule by ity of capsule 00:00: mouth in [place] the Medical morning Branch and 1 capsule at noon and 1 capsule in the evening. tiZANidine 2021-08 Yes [id number] 4mg Take 1 [facility] 4 mg tablet 0-04 9100 tablet by ity of 00:00: mouth 3 [place] (three) Medical times [place] daily as needed (muscle spasm). meloxicam 2021-08 Yes [id number] 15mg Take 1 [facility] 15 mg 0-04 tablet by ity of tablet 00:00: mouth in [place] the Medical morning. Branch gabapentin 2021-08 Yes [id number] 400mg Take 1 [facility] 400 mg 0-04 9100 capsule by ity of capsule 00:00: mouth in [place] the Medical morning Branch and 1 capsule at noon and 1 capsule in the evening. tiZANidine 2021-08 Yes [id number] 4mg Take 1 [facility] 4 mg tablet 0-04 9100 tablet by ity of 00:00: mouth 3 [place] (three) Medical times [place] daily as needed (muscle spasm). meloxicam 2021-08 Yes [id number] 15mg Take 1 [facility] 15 mg 0-04 tablet by ity of tablet 00:00: mouth in [place] the Medical morning. Branch gabapentin 2021-08 Yes [id number] 400mg Take 1 [facility] 400 mg 0-04 9100 capsule by ity of capsule 00:00: mouth in [place] the Medical morning Branch and 1 capsule at noon and 1 capsule in the evening. tiZANidine 2021-08 Yes [id number] 4mg Take 1 [facility] 4 mg tablet 0-04 9100 tablet by ity of 00:00: mouth 3 [place] (three) Medical times Branch daily as needed (muscle spasm). meloxicam 2021-08 Yes [id number] 15mg Take 1 [facility] 15 mg 0-04 tablet by ity of tablet 00:00: mouth in [place] the Medical morning. Branch gabapentin 2021-08 Yes [id number] 400mg Take 1 [facility] 400 mg 0-04 9100 capsule by ity of capsule 00:00: mouth in [place] the Medical morning Branch and 1 capsule at noon and 1 capsule in the evening. tiZANidine 2021-08 Yes [id number] 4mg Take 1 [facility] 4 mg tablet 0-04 9100 tablet by ity of 00:00: mouth 3 [place] (three) Medical times Branch daily as needed (muscle spasm). meloxicam 2021-08 Yes [id number] 15mg Take 1 [facility] 15 mg 0-04 tablet by ity of tablet 00:00: mouth in [place] the Medical morning. Branch gabapentin 2021-08 Yes [id number] 400mg Take 1 [facility] 400 mg 0-04 9100 capsule by ity of capsule 00:00: mouth in [place] the Medical morning Branch and 1 capsule at noon and 1 capsule in the evening. tiZANidine 2021-08 Yes [id number] 4mg Take 1 [facility] 4 mg tablet 0-04 9100 tablet by ity of 00:00: mouth 3 [place] (three) Medical times Branch daily as needed (muscle spasm). meloxicam 2021-08 Yes [id number] 15mg Take 1 [facility] 15 mg 0-04 tablet by ity of tablet 00:00: mouth in [place] the Medical morning. Branch gabapentin 2021-08 Yes [id number] 400mg Take 1 [facility] 400 mg 0-04 9100 capsule by ity of capsule 00:00: mouth in [place] the Medical morning Branch and 1 capsule at noon and 1 capsule in the evening. tiZANidine 2021-08 Yes [id number] 4mg Take 1 [facility] 4 mg tablet 0-04 9100 tablet by ity of 00:00: mouth 3 [place] 00 (three) Medical times Branch daily as needed (muscle spasm). meloxicam 2021-08 Yes [id number] 15mg Take 1 [facility] 15 mg 0-04 tablet by ity of tablet 00:00: mouth in [place] the Medical morning. Branch gabapentin 2021-08 Yes [id number] 400mg Take 1 [facility] 400 mg 0-04 9100 capsule by ity of capsule 00:00: mouth in [place] the Medical morning Branch and 1 capsule at noon and 1 capsule in the evening. tiZANidine 2021-08 Yes [id number] 4mg Take 1 [facility] 4 mg tablet 0-04 9100 tablet by ity of 00:00: mouth 3 [place] (three) Medical times [place] daily as needed (muscle spasm). meloxicam 2021-08 Yes [id number] 15mg Take 1 [facility] 15 mg 0-04 tablet by ity of tablet 00:00: mouth in [place] the Medical morning. Branch gabapentin 2021-08 Yes [id number] 400mg Take 1 [facility] 400 mg 0-04 9100 capsule by ity of capsule 00:00: mouth in [place] the Medical morning Branch and 1 capsule at noon and 1 capsule in the evening. tiZANidine 2021-08 Yes [id number] 4mg Take 1 [facility] 4 mg tablet 0-04 9100 tablet by ity of 00:00: mouth 3 [place] (three) Medical times [place] daily as needed (muscle spasm). meloxicam 2021-08 Yes [id number] 15mg Take 1 [facility] 15 mg 0-04 tablet by ity of tablet 00:00: mouth in [place] the Medical morning. Branch gabapentin 2021-08 Yes [id number] 400mg Take 1 [facility] 400 mg 0-04 9100 capsule by ity of capsule 00:00: mouth in [place] the Medical morning Branch and 1 capsule at noon and 1 capsule in the evening. tiZANidine 2021-08 Yes [id number] 4mg Take 1 [facility] 4 mg tablet 0-04 9100 tablet by ity of 00:00: mouth 3 [place] 00 (three) Medical times [place] daily as needed (muscle spasm). meloxicam 2021-08 Yes [id number] 15mg Take 1 [facility] 15 mg 0-04 tablet by ity of tablet 00:00: mouth in [place] the Medical morning. Branch tiZANidine 2021-08- No [id number] 4mg Take 1 [facility] 4 mg tablet 0-04 -19 9100 tablet by it y of 00:00: 00:00 mouth 3 [place] 00 :00 (three) [facility] daily as needed (muscle spasm). meloxicam 2021-08- No [id number] 15mg Take 1 U nivers 15 mg 0-04 02-03 tablet by ity of tablet 00:00: 00:00 mouth in [place] 00 :00 the Medical morning. [facility] meloxicam 2021-08- No [id number] 15mg Take 1 U nivers 15 mg 0-04 02-03 tablet by ity of tablet 00:00: 00:00 mouth in [place] 00 :00 the Medical morning. [facility] meloxicam 2021-08- No [id number] 15mg Take 1 U nivers 15 mg 0-04 02-03 tablet by ity of tablet 00:00: 00:00 mouth in [place] 00 :00 the Medical morning. [facility] meloxicam 2021-08- No [id number] 15mg Take 1 U nivers 15 mg 0-04 02-03 tablet by ity of tablet 00:00: 00:00 mouth in [place] 00 :00 the Medical morning. [facility] metformin Yes [id number] TAKE 2 U nivers ER 500 mg 9-09 TABLETS BY ity of 24 hr 00:00: MOUTH ONCE [place] tablet 00 DAILY IN [facility] MORNING AND 3 ONCE DAILY IN THE EVENING. dulaglutide Yes [id number] .75mg inject 1 [facility] (TRULICITY) 9-09 Pen under ity of 0.75 mg/0.5 00:00: the skin [place] mL PnIj 00 weekly. [facility] metformin Yes [id number] TAKE 2 U nivers ER 500 mg 9-09 TABLETS BY ity of 24 hr 00:00: MOUTH ONCE [place] tablet 00 DAILY IN [facility] MORNING AND 3 ONCE DAILY IN THE EVENING. dulaglutide Yes [id number] .75mg inject 1 [facility] (TRULICITY) 9-09 Pen under ity of 0.75 mg/0.5 00:00: the skin [place] mL PnIj 00 weekly. [facility] metformin Yes [id number] TAKE 2 U nivers ER 500 mg 9-09 TABLETS BY ity of 24 hr 00:00: MOUTH ONCE [place] tablet 00 DAILY IN [facility] MORNING AND 3 ONCE DAILY IN THE EVENING. dulaglutide 2021-0 Yes [id number] .75mg inject 1 [facility] (TRULICITY) 9-09 Pen under ity of 0.75 mg/0.5 00:00: the skin [place] mL PnIj 00 weekly. [facility] metformin 2021-0 Yes [id number] TAKE 2 U nivers ER 500 mg 9-09 TABLETS BY ity of 24 hr 00:00: MOUTH ONCE [place] tablet 00 DAILY IN [facility] MORNING AND 3 ONCE DAILY IN THE EVENING. dulaglutide 2021-0 Yes [id number] .75mg inject 1 [facility] (TRULICITY) 9-09 Pen under ity of 0.75 mg/0.5 00:00: the skin [place] mL PnIj 00 weekly. [facility] metformin Yes [id number] TAKE 2 U nivers ER 500 mg 9-09 TABLETS BY ity of 24 hr 00:00: MOUTH ONCE [place] tablet 00 DAILY IN [facility] MORNING AND 3 ONCE DAILY IN THE EVENING. hydrOXYzine 2021-0 Yes [id number] 25mg Take 1 [facility] 25 mg 9-09 tablet by ity of tablet 00:00: mouth [place] 00 every 8 [facility] (eight) [place] hours as needed for Itching. dulaglutide 0 Yes [id number] .75mg inject 1 [facility] (TRULICITY) 9-09 Pen under ity of 0.75 mg/0.5 00:00: the skin [place] mL PnIj 00 weekly. [facility] metformin 2021-0 Yes [id number] TAKE 2 U nivers ER 500 mg 9-09 TABLETS BY ity of 24 hr 00:00: MOUTH ONCE [place] tablet 00 DAILY IN [facility] MORNING AND 3 ONCE DAILY IN THE EVENING. hydrOXYzine 2021-0 Yes [id number] 25mg Take 1 [facility] 25 mg 9-09 tablet by ity of tablet 00:00: mouth [place] 00 every 8 [facility] (eight) [place] hours as needed for Itching. dulaglutide 2021-0 Yes [id number] .75mg inject 1 [facility] (TRULICITY) 9-09 Pen under ity of 0.75 mg/0.5 00:00: the skin [place] mL PnIj 00 weekly. [facility] metformin 2021-0 Yes [id number] TAKE 2 U nivers ER 500 mg 9-09 TABLETS BY ity of 24 hr 00:00: MOUTH ONCE [place] tablet 00 DAILY IN [facility] MORNING AND 3 ONCE DAILY IN THE EVENING. hydrOXYzine 2021-0 Yes [id number] 25mg Take 1 [facility] 25 mg 9-09 tablet by ity of tablet 00:00: mouth [place] 00 every 8 Medical (eight) Branch hours as needed for Itching. dulaglutide 2021-0 Yes [id number] .75mg inject 1 [facility] (TRULICITY) 9-09 Pen under ity of 0.75 mg/0.5 00:00: the skin [place] mL PnIj 00 weekly. [facility] metformin 2021-0 Yes [id number] TAKE 2 U nivers ER 500 mg 9-09 TABLETS BY ity of 24 hr 00:00: MOUTH ONCE [place] tablet 00 DAILY IN [facility] MORNING AND 3 ONCE DAILY IN THE EVENING. hydrOXYzine 2021-0 Yes [id number] 25mg Take 1 [facility] 25 mg 9-09 tablet by ity of tablet 00:00: mouth [place] 00 every 8 [facility] (eight) Branch hours as needed for Itching. dulaglutide 2021-0 Yes [id number] .75mg inject 1 [facility] (TRULICITY) 9-09 Pen under ity of 0.75 mg/0.5 00:00: [place] skin [place] PnIj 00 weekly. [facility] metformin 2021-0 Yes [id number] TAKE 2 U nivers ER 500 mg 9-09 TABLETS BY ity of 24 hr 00:00: MOUTH ONCE [place] tablet 00 DAILY IN [facility] MORNING AND 3 ONCE DAILY IN THE EVENING. hydrOXYzine 2021-0 Yes [id number] 25mg Take 1 [facility] 25 mg 9-09 tablet by ity of tablet 00:00: mouth [place] 00 every 8 Medical (eight) Branch hours as needed for Itching. dulaglutide 2021-0 Yes [id number] .75mg inject 1 [facility] (TRULICITY) 9-09 Pen under ity of 0.75 mg/0.5 00:00: the skin [place] mL PnIj 00 weekly. [facility] metformin 2021-0 Yes [id number] TAKE 2 U nivers ER 500 mg 9-09 TABLETS BY ity of 24 hr 00:00: MOUTH ONCE [place] tablet 00 DAILY IN [facility] MORNING AND 3 ONCE DAILY IN THE EVENING. hydrOXYzine 2021-0 Yes [id number] 25mg Take 1 [facility] 25 mg 9-09 tablet by ity of tablet 00:00: mouth [place] 00 every 8 Medical (eight) Branch hours as needed for Itching. dulaglutide 2021-0 Yes [id number] .75mg inject 1 [facility] (TRULICITY) 9-09 Pen under ity of 0.75 mg/0.5 00:00: the skin [place] mL PnIj 00 weekly. [facility] metformin 2021-0 Yes [id number] TAKE 2 U nivers ER 500 mg 9-09 TABLETS BY ity of 24 hr 00:00: MOUTH ONCE [place] tablet 00 DAILY IN [facility] MORNING AND 3 ONCE DAILY IN THE EVENING. hydrOXYzine 2021-0 Yes [id number] 25mg Take 1 [facility] 25 mg 9-09 tablet by ity of tablet 00:00: mouth [place] 00 every 8 Medical (eight) Branch hours as needed for Itching. dulaglutide 2021-0 Yes [id number] .75mg inject 1 [facility] (TRULICITY) 9-09 Pen under ity of 0.75 mg/0.5 00:00: the skin [place] mL PnIj 00 weekly. [facility] metformin 0 Yes [id number] TAKE 2 U nivers ER 500 mg 9-09 TABLETS BY ity of 24 hr 00:00: MOUTH ONCE [place] tablet 00 DAILY IN [facility] MORNING AND 3 ONCE DAILY IN THE EVENING. hydrOXYzine 2021-0 Yes [id number] 25mg Take 1 [facility] 25 mg 9-09 tablet by ity of tablet 00:00: mouth [place] 00 every 8 Medical (eight) Branch hours as needed for Itching. dulaglutide 2021-0 Yes [id number] .75mg inject 1 [facility] (TRULICITY) 9-09 Pen under ity of 0.75 mg/0.5 00:00: the skin [place] mL PnIj 00 weekly. [facility] metformin 2021-0 Yes [id number] TAKE 2 U nivers ER 500 mg 9-09 TABLETS BY ity of 24 hr 00:00: MOUTH ONCE [place] tablet 00 DAILY IN [facility] MORNING AND 3 ONCE DAILY IN THE EVENING. hydrOXYzine 2021-0 Yes [id number] 25mg Take 1 [facility] 25 mg 9-09 tablet by ity of tablet 00:00: mouth [place] 00 every 8 Medical (eight) Branch hours as needed for Itching. dulaglutide 2021-0 Yes [id number] .75mg inject 1 [facility] (TRULICITY) 9-09 Pen under ity of 0.75 mg/0.5 00:00: the skin [place] mL PnIj 00 weekly. [facility] metformin 2021-0 Yes [id number] TAKE 2 U nivers ER 500 mg 9-09 TABLETS BY ity of 24 hr 00:00: MOUTH ONCE [place] tablet 00 DAILY IN [facility] MORNING AND 3 ONCE DAILY IN THE EVENING. hydrOXYzine 2021-0 Yes [id number] 25mg Take 1 [facility] 25 mg 9-09 tablet by ity of tablet 00:00: mouth [place] 00 every 8 Medical (eight) Branch hours as needed for Itching. dulaglutide 2021-0 Yes [id number] .75mg inject 1 [facility] (TRULICITY) 9-09 Pen under ity of 0.75 mg/0.5 00:00: the skin [place] mL PnIj 00 weekly. [facility] metformin Yes [id number] TAKE 2 U nivers ER 500 mg 9-09 TABLETS BY ity of 24 hr 00:00: MOUTH ONCE [place] tablet 00 DAILY IN [facility] MORNING AND 3 ONCE DAILY IN THE EVENING. hydrOXYzine 2021-0 Yes [id number] 25mg Take 1 [facility] 25 mg 9-09 tablet by ity of tablet 00:00: mouth [place] 00 every 8 Medical (eight) Branch hours as needed for Itching. dulaglutide 2021-0 Yes [id number] .75mg inject 1 [facility] (TRULICITY) 9-09 Pen under ity of 0.75 mg/0.5 00:00: the skin [place] mL PnIj 00 weekly. [facility] metformin 2021-0 Yes [id number] TAKE 2 U nivers ER 500 mg 9-09 TABLETS BY ity of 24 hr 00:00: MOUTH ONCE [place] tablet 00 DAILY IN [facility] MORNING AND 3 ONCE DAILY IN THE EVENING. hydrOXYzine 2021-0 Yes [id number] 25mg Take 1 [facility] 25 mg 9-09 tablet by ity of tablet 00:00: mouth [place] 00 every 8 Medical (eight) Branch hours as needed for Itching. dulaglutide 2021-0 Yes [id number] .75mg inject 1 [facility] (TRULICITY) 9-09 Pen under ity of 0.75 mg/0.5 00:00: the skin [place] mL PnIj 00 weekly. [facility] metformin 2021-0 Yes [id number] TAKE 2 U nivers ER 500 mg 9-09 TABLETS BY ity of 24 hr 00:00: MOUTH ONCE [place] tablet 00 DAILY IN [facility] MORNING AND 3 ONCE DAILY IN THE EVENING. hydrOXYzine 2021-0 Yes [id number] 25mg Take 1 [facility] 25 mg 9-09 tablet by ity of tablet 00:00: mouth [place] 00 every 8 Medical (eight) Branch hours as needed for Itching. dulaglutide 2021-0 Yes [id number] .75mg inject 1 [facility] (TRULICITY) 9-09 Pen under ity of 0.75 mg/0.5 00:00: the skin [place] mL PnIj 00 weekly. [facility] metformin 2021-0 Yes [id number] TAKE 2 U nivers ER 500 mg 9-09 TABLETS BY ity of 24 hr 00:00: MOUTH ONCE [place] tablet 00 DAILY IN [facility] MORNING AND 3 ONCE DAILY IN THE EVENING. hydrOXYzine 2021-0 Yes [id number] 25mg Take 1 [facility] 25 mg 9-09 tablet by ity of tablet 00:00: mouth [place] 00 every 8 [facility] (eight) Branch hours as needed for Itching. dulaglutide 2021-0 Yes [id number] .75mg inject 1 [facility] (TRULICITY) 9-09 Pen under ity of 0.75 mg/0.5 00:00: the skin [place] mL PnIj 00 weekly. [facility] metformin 2021-0 Yes [id number] TAKE 2 U nivers ER 500 mg 9-09 TABLETS BY ity of 24 hr 00:00: MOUTH ONCE [place] tablet 00 DAILY IN [facility] MORNING AND 3 ONCE DAILY IN THE EVENING. hydrOXYzine 2021-0 Yes [id number] 25mg Take 1 [facility] 25 mg 9-09 tablet by ity of tablet 00:00: mouth [place] 00 every 8 Medical (eight) Branch hours as needed for Itching. dulaglutide 2021-0 Yes [id number] .75mg inject 1 [facility] (TRULICITY) 9-09 Pen under ity of 0.75 mg/0.5 00:00: the skin [place] mL PnIj 00 weekly. [facility] metformin 2021-0 Yes [id number] TAKE 2 U nivers ER 500 mg 9-09 TABLETS BY ity of 24 hr 00:00: MOUTH ONCE [place] tablet 00 DAILY IN [facility] MORNING AND 3 ONCE DAILY IN THE EVENING. hydrOXYzine 2021-0 Yes [id number] 25mg Take 1 [facility] 25 mg 9-09 tablet by ity of tablet 00:00: mouth [place] 00 every 8 [facility] (eight) Branch hours as needed for Itching. dulaglutide 0 Yes [id number] .75mg inject 1 [facility] (TRULICITY) 9-09 Pen under ity of 0.75 mg/0.5 00:00: the skin [place] mL PnIj 00 weekly. [facility] metformin Yes [id number] TAKE 2 U nivers ER 500 mg 9-09 TABLETS BY ity of 24 hr 00:00: MOUTH ONCE [place] tablet 00 DAILY IN [facility] MORNING AND 3 ONCE DAILY IN THE EVENING. hydrOXYzine Yes [id number] 25mg Take 1 [facility] 25 mg 9-09 tablet by ity of tablet 00:00: mouth [place] 00 every 8 [facility] (eight) [place] hours as needed for Itching. dulaglutide Yes [id number] .75mg inject 1 [facility] (TRULICITY) 9-09 Pen under ity of 0.75 mg/0.5 00:00: the skin [place] mL PnIj 00 weekly. [facility] metformin Yes [id number] TAKE 2 U nivers ER 500 mg 9-09 TABLETS BY ity of 24 hr 00:00: MOUTH ONCE [place] tablet 00 DAILY IN [facility] MORNING AND 3 ONCE DAILY IN THE EVENING. dulaglutide Yes [id number] .75mg inject 1 [facility] (TRULICITY) 9-09 Pen under ity of 0.75 mg/0.5 00:00: the skin [place] mL PnIj 00 weekly. [facility] metformin 0 Yes [id number] TAKE 2 U nivers ER 500 mg 9-09 TABLETS BY ity of 24 hr 00:00: MOUTH ONCE [place] tablet 00 DAILY IN [facility] MORNING AND 3 ONCE DAILY IN THE EVENING. dulaglutide 0 Yes [id number] .75mg inject 1 [facility] (TRULICITY) 9-09 Pen under ity of 0.75 mg/0.5 00:00: the skin [place] mL PnIj 00 weekly. [facility] metformin Yes [id number] TAKE 2 U nivers ER 500 mg 9-09 TABLETS BY ity of 24 hr 00:00: MOUTH ONCE [place] tablet 00 DAILY IN [facility] MORNING AND 3 ONCE DAILY IN THE EVENING. dulaglutide Yes [id number] .75mg inject 1 [facility] (TRULICITY) 9-09 Pen under ity of 0.75 mg/0.5 00:00: the skin [place] mL PnIj 00 weekly. [facility] metformin Yes [id number] TAKE 2 U nivers ER 500 mg 9-09 TABLETS BY ity of 24 hr 00:00: MOUTH ONCE [place] tablet 00 DAILY IN [facility] MORNING AND 3 ONCE DAILY IN THE EVENING. dulaglutide Yes [id number] .75mg inject 1 [facility] (TRULICITY) 9-09 Pen under ity of 0.75 mg/0.5 00:00: the skin [place] mL PnIj 00 weekly. [facility] metformin Yes [id number] TAKE 2 U nivers ER 500 mg 9-09 TABLETS BY ity of 24 hr 00:00: MOUTH ONCE [place] tablet 00 DAILY IN [facility] MORNING AND 3 ONCE DAILY IN THE EVENING. dulaglutide Yes [id number] .75mg inject 1 [facility] (TRULICITY) 9-09 Pen under ity of 0.75 mg/0.5 00:00: the skin [place] mL PnIj 00 weekly. [facility] metformin Yes [id number] TAKE 2 U nivers ER 500 mg 9-09 TABLETS BY ity of 24 hr 00:00: MOUTH ONCE [place] tablet 00 DAILY IN [facility] MORNING AND 3 ONCE DAILY IN THE EVENING. dulaglutide 0 Yes [id number] .75mg inject 1 [facility] (TRULICITY) 9-09 Pen under ity of 0.75 mg/0.5 00:00: the skin [place] mL PnIj 00 weekly. [facility] metformin Yes [id number] TAKE 2 U nivers ER 500 mg 9-09 TABLETS BY ity of 24 hr 00:00: MOUTH ONCE [place] tablet 00 DAILY IN [facility] MORNING AND 3 ONCE DAILY IN THE EVENING. dulaglutide 2021-0 Yes [id number] .75mg inject 1 [facility] (TRULICITY) 9-09 Pen under ity of 0.75 mg/0.5 00:00: the skin [place] mL PnIj 00 weekly. [facility] metformin Yes [id number] TAKE 2 U nivers ER 500 mg 9-09 TABLETS BY ity of 24 hr 00:00: MOUTH ONCE [place] tablet 00 DAILY IN [facility] MORNING AND 3 ONCE DAILY IN THE EVENING. dulaglutide Yes [id number] .75mg inject 1 [facility] (TRULICITY) 9-09 Pen under ity of 0.75 mg/0.5 00:00: the skin [place] mL PnIj 00 weekly. [facility] metformin Yes [id number] TAKE 2 U nivers ER 500 mg 9-09 TABLETS BY ity of 24 hr 00:00: MOUTH ONCE [place] tablet 00 DAILY IN [facility] MORNING AND 3 ONCE DAILY IN THE EVENING. dulaglutide Yes [id number] .75mg inject 1 [facility] (TRULICITY) 9-09 Pen under ity of 0.75 mg/0.5 00:00: the skin [place] mL PnIj 00 weekly. [facility] metformin Yes [id number] TAKE 2 U nivers ER 500 mg 9-09 TABLETS BY ity of 24 hr 00:00: MOUTH ONCE [place] tablet 00 DAILY IN [facility] MORNING AND 3 ONCE DAILY IN THE EVENING. dulaglutide Yes [id number] .75mg inject 1 [facility] (TRULICITY) 9-09 Pen under ity of 0.75 mg/0.5 00:00: the skin [place] mL PnIj 00 weekly. [facility] metformin Yes [id number] TAKE 2 U nivers ER 500 mg 9-09 TABLETS BY ity of 24 hr 00:00: MOUTH ONCE [place] tablet 00 DAILY IN [facility] MORNING AND 3 ONCE DAILY IN THE EVENING. dulaglutide Yes [id number] .75mg inject 1 [facility] (TRULICITY) 9-09 Pen under ity of 0.75 mg/0.5 00:00: the skin [place] mL PnIj 00 weekly. [facility] metformin Yes [id number] TAKE 2 U nivers ER 500 mg 9-09 TABLETS BY ity of 24 hr 00:00: MOUTH ONCE [place] tablet 00 DAILY IN [facility] MORNING AND 3 ONCE DAILY IN THE EVENING. dulaglutide Yes [id number] .75mg inject 1 [facility] (TRULICITY) 9-09 Pen under ity of 0.75 mg/0.5 00:00: the skin [place] mL PnIj 00 weekly. [facility] metformin Yes [id number] TAKE 2 U nivers ER 500 mg 9-09 TABLETS BY ity of 24 hr 00:00: MOUTH ONCE [place] tablet 00 DAILY IN [facility] MORNING AND 3 ONCE DAILY IN THE EVENING. dulaglutide Yes [id number] .75mg inject 1 [facility] (TRULICITY) 9-09 Pen under ity of 0.75 mg/0.5 00:00: the skin [place] mL PnIj 00 weekly. [facility] metformin Yes [id number] TAKE 2 U nivers ER 500 mg 9-09 TABLETS BY ity of 24 hr 00:00: MOUTH ONCE [place] tablet 00 DAILY IN [facility] MORNING AND 3 ONCE DAILY IN THE EVENING. dulaglutide Yes [id number] .75mg inject 1 [facility] (TRULICITY) 9-09 Pen under ity of 0.75 mg/0.5 00:00: the skin [place] mL PnIj 00 weekly. [facility] metformin Yes [id number] TAKE 2 U nivers ER 500 mg 9-09 TABLETS BY ity of 24 hr 00:00: MOUTH ONCE [place] tablet 00 DAILY IN [facility] MORNING AND 3 ONCE DAILY IN THE EVENING. dulaglutide Yes [id number] .75mg inject 1 [facility] (TRULICITY) 9-09 Pen under ity of 0.75 mg/0.5 00:00: the skin [place] mL PnIj 00 weekly. [facility] metformin Yes [id number] TAKE 2 U nivers ER 500 mg 9-09 TABLETS BY ity of 24 hr 00:00: MOUTH ONCE [place] tablet 00 DAILY IN [facility] MORNING AND 3 ONCE DAILY IN THE EVENING. dulaglutide Yes [id number] .75mg inject 1 [facility] (TRULICITY) 9-09 Pen under ity of 0.75 mg/0.5 00:00: the skin [place] mL PnIj 00 weekly. [facility] metformin Yes [id number] TAKE 2 U nivers ER 500 mg 9-09 TABLETS BY ity of 24 hr 00:00: MOUTH ONCE [place] tablet 00 DAILY IN [facility] MORNING AND 3 ONCE DAILY IN THE EVENING. dulaglutide 0 Yes [id number] .75mg inject 1 [facility] (TRULICITY) 9-09 Pen under ity of 0.75 mg/0.5 00:00: the skin [place] mL PnIj 00 weekly. [facility] metformin Yes [id number] TAKE 2 U nivers ER 500 mg 9-09 TABLETS BY ity of 24 hr 00:00: MOUTH ONCE [place] tablet 00 DAILY IN [facility] MORNING AND 3 ONCE DAILY IN THE EVENING. dulaglutide Yes [id number] .75mg inject 1 [facility] (TRULICITY) 9-09 Pen under ity of 0.75 mg/0.5 00:00: the skin [place] mL PnIj 00 weekly. [facility] metformin Yes [id number] TAKE 2 U nivers ER 500 mg 9-09 TABLETS BY ity of 24 hr 00:00: MOUTH ONCE [place] tablet 00 DAILY IN [facility] MORNING AND 3 ONCE DAILY IN THE EVENING. dulaglutide Yes [id number] .75mg inject 1 [facility] (TRULICITY) 9-09 Pen under ity of 0.75 mg/0.5 00:00: the skin [place] mL PnIj 00 weekly. [facility] metformin Yes [id number] TAKE 2 U nivers ER 500 mg 9-09 TABLETS BY ity of 24 hr 00:00: MOUTH ONCE [place] tablet 00 DAILY IN [facility] MORNING AND 3 ONCE DAILY IN THE EVENING. dulaglutide 0 Yes [id number] .75mg inject 1 [facility] (TRULICITY) 9-09 Pen under ity of 0.75 mg/0.5 00:00: the skin [place] mL PnIj 00 weekly. [facility] metformin Yes [id number] TAKE 2 U nivers ER 500 mg 9-09 TABLETS BY ity of 24 hr 00:00: MOUTH ONCE [place] tablet 00 DAILY IN [facility] MORNING AND 3 ONCE DAILY IN THE EVENING. dulaglutide 2021-0 Yes [id number] .75mg inject 1 [facility] (TRULICITY) 9-09 Pen under ity of 0.75 mg/0.5 00:00: the skin [place] mL PnIj 00 weekly. [facility] metformin Yes [id number] TAKE 2 U nivers ER 500 mg 9-09 TABLETS BY ity of 24 hr 00:00: MOUTH ONCE [place] tablet 00 DAILY IN [facility] MORNING AND 3 ONCE DAILY IN THE EVENING. dulaglutide Yes [id number] .75mg inject 1 [facility] (TRULICITY) 9-09 Pen under ity of 0.75 mg/0.5 00:00: the skin [place] mL PnIj 00 weekly. [facility] metformin Yes [id number] TAKE 2 U nivers ER 500 mg 9-09 TABLETS BY ity of 24 hr 00:00: MOUTH ONCE [place] tablet 00 DAILY IN [facility] MORNING AND 3 ONCE DAILY IN THE EVENING. dulaglutide Yes [id number] .75mg inject 1 [facility] (TRULICITY) 9-09 Pen under ity of 0.75 mg/0.5 00:00: the skin [place] mL PnIj 00 weekly. [facility] metformin Yes [id number] TAKE 2 U nivers ER 500 mg 9-09 TABLETS BY ity of 24 hr 00:00: MOUTH ONCE [place] tablet 00 DAILY IN [facility] MORNING AND 3 ONCE DAILY IN THE EVENING. dulaglutide Yes [id number] .75mg inject 1 [facility] (TRULICITY) 9-09 Pen under ity of 0.75 mg/0.5 00:00: the skin [place] mL PnIj 00 weekly. [facility] metformin Yes [id number] TAKE 2 U nivers ER 500 mg 9-09 TABLETS BY ity of 24 hr 00:00: MOUTH ONCE [place] tablet 00 DAILY IN [facility] MORNING AND 3 ONCE DAILY IN THE EVENING. dulaglutide Yes [id number] .75mg inject 1 [facility] (TRULICITY) 9-09 Pen under ity of 0.75 mg/0.5 00:00: the skin [place] mL PnIj 00 weekly. [facility] metformin Yes [id number] TAKE 2 U nivers ER 500 mg 9-09 TABLETS BY ity of 24 hr 00:00: MOUTH ONCE [place] tablet 00 DAILY IN [facility] MORNING AND 3 ONCE DAILY IN THE EVENING. dulaglutide 2021-0 Yes [id number] .75mg inject 1 [facility] (TRULICITY) 9-09 Pen under ity of 0.75 mg/0.5 00:00: the skin [place] mL PnIj 00 weekly. [facility] metformin Yes [id number] TAKE 2 U n[place] ER 500 mg 9-09 TABLETS BY ity of 24 hr 00:00: MOUTH ONCE [place] tablet 00 DAILY IN [facility] MORNING AND 3 ONCE DAILY IN THE EVENING. dulaglutide Yes [id number] .75mg inject 1 [facility] (TRULICITY) 9-09 Pen under ity of 0.75 mg/0.5 00:00: the skin [place] mL PnIj 00 weekly. [facility] metformin Yes [id number] TAKE 2 U [place] ER 500 mg 9-09 TABLETS BY ity of 24 hr 00:00: MOUTH ONCE [place] tablet 00 DAILY IN [facility] MORNING AND 3 ONCE DAILY IN THE EVENING. dulaglutide Yes [id number] .75mg inject 1 [facility] (TRULICITY) 9-09 Pen under ity of 0.75 mg/0.5 00:00: the skin [place] mL PnIj 00 weekly. [facility] metformin Yes [id number] TAKE 2 U [place] ER 500 mg 9-09 TABLETS BY ity of 24 hr 00:00: MOUTH ONCE [place] tablet 00 DAILY IN [facility] MORNING AND 3 ONCE DAILY IN THE EVENING. dulaglutide Yes [id number] .75mg inject 1 [facility] (TRULICITY) 9-09 Pen under ity of 0.75 mg/0.5 00:00: the skin [place] mL PnIj 00 weekly. [facility] metformin Yes [id number] TAKE 2 U n[place] ER 500 mg 9-09 TABLETS BY ity of 24 hr 00:00: MOUTH ONCE [place] tablet 00 DAILY IN [facility] MORNING AND 3 ONCE DAILY IN THE EVENING. dulaglutide Yes [id number] .75mg inject 1 [facility] (TRULICITY) 9-09 Pen under ity of 0.75 mg/0.5 00:00: the skin [place] mL PnIj 00 weekly. [facility] metformin Yes [id number] TAKE 2 U [place] ER 500 mg 9-09 TABLETS BY ity of 24 hr 00:00: MOUTH ONCE [place] tablet 00 DAILY IN [facility] MORNING AND 3 ONCE DAILY IN THE EVENING. dulaglutide Yes [id number] .75mg inject 1 [facility] (TRULICITY) 9-09 Pen under ity of 0.75 mg/0.5 00:00: the skin [place] mL PnIj 00 weekly. [facility] metformin Yes [id number] TAKE 2 U [place] ER 500 mg 9-09 TABLETS BY ity of 24 hr 00:00: MOUTH ONCE [place] tablet 00 DAILY IN [facility] MORNING AND 3 ONCE DAILY IN THE EVENING. dulaglutide Yes [id number] .75mg inject 1 [facility] (TRULICITY) 9-09 Pen under ity of 0.75 mg/0.5 00:00: the skin [place] mL PnIj 00 weekly. [facility] metformin Yes [id number] TAKE 2 U nivers ER 500 mg 9-09 TABLETS BY ity of 24 hr 00:00: MOUTH ONCE [place] tablet 00 DAILY IN [facility] MORNING AND 3 ONCE DAILY IN THE EVENING. dulaglutide Yes [id number] .75mg inject 1 [facility] (TRULICITY) 9-09 Pen under ity of 0.75 mg/0.5 00:00: the skin [place] mL PnIj 00 weekly. [facility] metformin Yes [id number] TAKE 2 U nivers ER 500 mg 9-09 TABLETS BY ity of 24 hr 00:00: MOUTH ONCE [place] tablet 00 DAILY IN [facility] MORNING AND 3 ONCE DAILY IN THE EVENING. dulaglutide Yes [id number] .75mg inject 1 [facility] (TRULICITY) 9-09 Pen under ity of 0.75 mg/0.5 00:00: the skin [place] mL PnIj 00 weekly. [facility] metformin Yes [id number] TAKE 2 U nivers ER 500 mg 9-09 TABLETS BY ity of 24 hr 00:00: MOUTH ONCE [place] tablet 00 DAILY IN [facility] MORNING AND 3 ONCE DAILY IN THE EVENING. dulaglutide Yes [id number] .75mg inject 1 [facility] (TRULICITY) 9-09 Pen under ity of 0.75 mg/0.5 00:00: the skin [place] mL PnIj 00 weekly. [facility] metformin 3- No [id number] TAKE 2 [facility] ER 500 mg 04-21 TABLETS BY ity of 24 hr 00:00: 00:00 MOUTH ONCE [place] tablet 00 :00 DAILY IN [facility] MORNING AND 3 ONCE DAILY IN THE EVENING. dulaglutide 2022- No [id number] .75mg inject 1 [facility] (TRULICITY) 04-21 Pen under it y of 0.75 mg/0.5 00:00: 00:00 the skin [place] mL PnIj 00 :00 weekly. [facility] metformin 2022- No [id number] TAKE 2 [facility] ER 500 mg 04-21 TABLETS BY ity of 24 hr 00:00: 00:00 MOUTH ONCE [place] tablet 00 :00 DAILY IN [facility] MORNING AND 3 ONCE DAILY IN THE EVENING. dulaglutide 2022- No [id number] .75mg inject 1 [facility] (TRULICITY) 04-21 Pen under it y of 0.75 mg/0.5 00:00: 00:00 the skin [place] mL PnIj 00 :00 weekly. [facility] metformin 2022- No [id number] TAKE 2 [facility] ER 500 mg 04-21 TABLETS BY ity of 24 hr 00:00: 00:00 MOUTH ONCE [place] tablet 00 :00 DAILY IN [facility] MORNING AND 3 ONCE DAILY IN THE EVENING. dulaglutide 2022- No [id number] .75mg inject 1 [facility] (TRULICITY) 04-21 Pen under it y of 0.75 mg/0.5 00:00: 00:00 the skin [place] mL PnIj 00 :00 weekly. [facility] hydrOXYzine 2021- No [id number] 25mg Take 1 [facility] 25 mg 04-2116 tablet by ity of tablet 00:00: 00:00 mouth [place] 00 :00 every 8 [facility] (eight) [place] hours as needed for Itching. insulin NPH Yes [id number] INJECT 20 [facility] (NOVOLIN N 9-06 UNITS ity of NPH U-100 00:00: SUBCUTANEO [place] INSULIN) 00 USLY ONCE Medica l 100 unit/mL DAILY WITH Br anch injection BREAKFAST insulin Yes [id number] INJECT 15 [facility] regular 9-06 UNITS ity of human 00:00: SUBCUTANEO [place] (NOVOLIN R 00 USLY THREE Med ical REGULAR TIMES Branch U-100 DAILY INSULN) 100 BEFORE unit/mL MEAL(S) injection insulin NPH Yes [id number] INJECT 20 [facility] (NOVOLIN N 9-06 UNITS ity of NPH U-100 00:00: SUBC[place]ANEO [place] INSULIN) 00 USLY ONCE Medica l 100 unit/mL DAILY WITH Br anch injection BREAKFAST insulin Yes [id number] INJECT 15 [facility] regular 9-06 UNITS ity of human 00:00: SUBCUTANEO [place] (NOVOLIN R 00 USLY THREE Med ical REGULAR TIMES Branch U-100 DAILY INSULN) 100 BEFORE unit/mL MEAL(S) injection insulin NPH Yes [id number] INJECT 20 [facility] (NOVOLIN N 9-06 UNITS ity of NPH U-100 00:00: SUBC[place]ANE[place] INSULIN) 00 USLY ONCE Medica l 100 unit/mL DAILY WITH Br anch injection BREAKFAST insulin Yes [id number] INJECT 15 [facility] regular 9-06 UNITS ity of human 00:00: SUBCUTANEO [place] (NOVOLIN R 00 USLY THREE Med ical REGULAR TIMES Branch U-100 DAILY INSULN) 100 BEFORE unit/mL MEAL(S) injection insulin NPH Yes [id number] INJECT 20 [facility] (NOVOLIN N 9-06 UNITS ity of NPH U-100 00:00: SUBC[place] INSULIN) 00 USLY ONCE Medica l 100 unit/mL DAILY WITH Br anch injection BREAKFAST insulin Yes [id number] INJECT 15 [facility] regular 9-06 UNITS ity of human 00:00: SUBCUTANEO [place] (NOVOLIN R 00 USLY THREE Med ical REGULAR TIMES Branch U-100 DAILY INSULN) 100 BEFORE unit/mL MEAL(S) injection ondansetron Yes [id number] DISSOLVE 1 [facility] 4 mg 9-06 TABLET IN ity of disintegrat 00:00: MOUTH [place] ing tablet 00 EVERY 8 Medica l HOURS Branch NEEDED FOR NAUSEA AND VOMITING FOR UP TO 4 DAYS insulin NPH Yes [id number] INJECT 20 [facility] (NOVOLIN N 9-06 UNITS ity of NPH U-100 00:00: SUBC[place] INSULIN) 00 USLY ONCE Medica l 100 unit/mL DAILY WITH Br anch injection BREAKFAST insulin Yes [id number] INJECT 15 [facility] regular 9-06 UNITS [facility]y [facility] human 00:[facility] Med ical REGULAR TIMES Branch U-100 DAILY INSULN) 100 BEFORE unit/mL MEAL(S) injection gabapentin Yes [id number] 400mg Take 1 [facility] 400 mg 9- 9100 capsule by ity of capsule 00:00: mouth in [place] 00 the Medical morning Branch and 1 capsule at noon and 1 capsule in the evening. ondansetron Yes [id number] DISSOLVE 1 [facility] 4 mg 9-06 TABLET IN ity of disintegrat 00:00: MOUTH [place] ing tablet 00 EVERY 8 Medica l HOURS Branch NEEDED FOR NAUSEA AND VOMITING FOR UP TO 4 DAYS insulin NPH Yes [id number] INJECT 20 [facility] (NOVOLIN N 9-06 UNITS ity of NPH U-100 00:00: SUBCUTANE[place] INSULIN) 00 USLY ONCE Medica l 100 unit/mL DAILY WITH Br anch injection BREAKFAST insulin Yes [id number] INJECT 15 [facility] regular 9-06 UNITS ity of human 00:00: [facility] (NOVOLIN R 00 USLY THREE Med ical REGULAR TIMES Branch U-100 DAILY INSULN) 100 BEFORE unit/mL MEAL(S) injection gabapentin 2021- Yes [id number] 400mg Take 1 [facility] 400 mg 9- 9100 capsule by ity of capsule 00:00: mouth in [place] the [facility] morning Branch and 1 capsule at noon and 1 capsule in the evening. ondansetron Yes [id number] DISSOLVE 1 [facility] 4 mg 9-06 TABLET IN ity of disintegrat 00:00: MOUTH [place] ing tablet 00 EVERY 8 Medica l HOURS Branch NEEDED FOR NAUSEA AND VOMITING FOR UP TO 4 DAYS insulin NPH Yes [id number] INJECT 20 [facility] (NOVOLIN N 9-06 UNITS ity of NPH U-100 00:00: SUBCUT[place] INSULIN) 00 USLY ONCE Medica l 100 unit/mL DAILY WITH Br anch injection BREAKFAST insulin Yes [id number] INJECT 15 [facility] regular 9-06 UNITS ity of human 00:00: SUBCUTANEO [place] (NOVOLIN R 00 USLY THREE Med ical REGULAR TIMES Branch U-100 DAILY INSULN) 100 BEFORE unit/mL MEAL(S) injection gabapentin Yes [id number] 400mg Take 1 [facility] 400 mg 900 capsule by [facility] of capsule 00:00: mouth in [place] 00 the Medical morning Branch and 1 capsule at noon and 1 capsule in the evening. ondansetron Yes [id number] DISSOLVE 1 [facility] 4 mg 9-06 TABLET IN ity of disintegrat 00:00: MOUTH [place] ing tablet 00 EVERY 8 Medica l HOURS Branch NEEDED FOR NAUSEA AND VOMITING FOR UP TO 4 DAYS insulin NPH Yes [id number] INJECT 20 [facility] (NOVOLIN N 9-06 UNITS ity of NPH U-100 00:00: [place] INSULIN) 00 USLY ONCE Med[facility] l 100 unit/mL DAILY WITH Br anch injection BREAKFAST insulin Yes [id number] INJECT 15 [facility] regular 9-06 UNITS ity of human 00:00: SUBCUTANEO [place] (NOVOLIN R 00 USLY THREE Med ical REGULAR TIMES Branch U-100 DAILY INSULN) 100 BEFORE unit/mL MEAL(S) injection gabapentin Yes [id number] 400mg Take 1 [facility] 400 mg 04-1800 capsule by [facility]y of capsule 00:00: mouth in [place] 00 the Medical morning Branch and 1 capsule at noon and 1 capsule in the evening. ondansetron Yes [id number] DISSOLVE 1 [facility] 4 mg 9-06 TABLET IN ity of disintegrat 00:00: MOUTH [place] ing tablet 00 EVERY 8 Medica l HOURS Branch NEEDED FOR NAUSEA AND VOMITING FOR UP TO 4 DAYS insulin NPH Yes [id number] INJECT 20 [facility] (NOVOLIN N 9-06 UNITS ity of NPH U-100 00:00: [place] INSULIN) 00 USLY ONCE [facility] l 100 unit/mL DAILY WITH Br anch injection BREAKFAST insulin Yes [id number] INJECT 15 [facility] regular 9-06 UNITS ity of human 00:00: SUBCUTANEO [place] (NOVOLIN R 00 USLY THREE Med ical REGULAR TIMES Branch U-100 DAILY INSULN) 100 BEFORE unit/mL MEAL(S) injection gabapentin Yes [id number] 400mg Take 1 [facility] 400 mg 04-18 capsule by ity of capsule 00:00: mouth in [place] 00 the Medical morning Branch and 1 capsule at noon and 1 capsule in the evening. ondansetron Yes [id number] DISSOLVE 1 [facility] 4 mg 9-06 TABLET IN ity of disintegrat 00:00: MOUTH [place] ing tablet 00 EVERY 8 Medica l HOURS Branch NEEDED FOR NAUSEA AND VOMITING FOR UP TO 4 DAYS insulin NPH Yes [id number] INJECT 20 [facility] (NOVOLIN N 9-06 UNITS ity of NPH U-100 00:00: [place] INSULIN) 00 USLY ONCE Med[facility] l 100 unit/mL DAILY WITH Br anch injection BREAKFAST insulin Yes [id number] INJECT 15 [facility] regular 9-06 UNITS ity of human 00:00: SUBCUTANEO [place] (NOVOLIN R 00 USLY THREE Med ical REGULAR TIMES Branch U-100 DAILY INSULN) 100 BEFORE unit/mL MEAL(S) injection ondansetron Yes [id number] DISSOLVE 1 [facility] 4 mg 9-06 TABLET IN ity of disintegrat 00:00: MOUTH [place] ing tablet 00 EVERY 8 Medica l HOURS Branch NEEDED FOR NAUSEA AND VOMITING FOR UP TO 4 DAYS insulin NPH Yes [id number] INJECT 20 [facility] (NOVOLIN N 9-06 UNITS ity of NPH U-100 00:00: [place] INSULIN) 00 USLY ONCE [facility] 100 unit/mL DAILY WITH Br anch injection BREAKFAST insulin Yes [id number] INJECT 15 [facility] regular 9-06 UNITS ity of human 00:00: SUBCUTANEO [place] (NOVOLIN R 00 USLY THREE Med ical REGULAR TIMES Branch U-100 DAILY INSULN) 100 BEFORE unit/mL MEAL(S) injection ondansetron Yes [id number] DISSOLVE 1 [facility] 4 mg 9-06 TABLET IN ity of disintegrat 00:00: MOUTH [place] ing tablet 00 EVERY 8 Medica l HOURS Branch NEEDED FOR NAUSEA AND VOMITING FOR UP TO 4 DAYS insulin NPH Yes [id number] INJECT 20 [facility] (NOVOLIN N 9-06 UNITS ity of NPH U-100 00:00: [place] INSULIN) 00 USLY ONCE Med[facility] 100 unit/mL DAILY WITH Br anch injection BREAKFAST insulin Yes [id number] INJECT 15 [facility] regular 9-06 UNITS ity of human 00:00: SUBCUTANEO [place] (NOVOLIN R 00 USLY THREE Med ical REGULAR TIMES Branch U-100 DAILY INSULN) 100 BEFORE unit/mL MEAL(S) injection ondansetron Yes [id number] DISSOLVE 1 [facility] 4 mg 9-06 TABLET IN ity of disintegrat 00:00: MOUTH [place] ing tablet 00 EVERY 8 Medica l HOURS Branch NEEDED FOR NAUSEA AND VOMITING FOR UP TO 4 DAYS insulin NPH Yes [id number] INJECT 20 [facility] (NOVOLIN N 9-06 UNITS ity of NPH U-100 00:00: [place] INSULIN) 00 USLY ONCE Med[facility] 100 unit/mL DAILY WITH Br anch injection BREAKFAST insulin Yes [id number] INJECT 15 [facility] regular 9-06 UNITS ity of human 00:00: SUBCUTANEO [place] (NOVOLIN R 00 USLY THREE Med ical REGULAR TIMES Branch U-100 DAILY INSULN) 100 BEFORE unit/mL MEAL(S) injection ondansetron Yes [id number] DISSOLVE 1 [facility] 4 mg 9-06 TABLET IN ity of disintegrat 00:00: MOUTH [place] ing tablet 00 EVERY 8 Medica l HOURS Branch NEEDED FOR NAUSEA AND VOMITING FOR UP TO 4 DAYS insulin NPH Yes [id number] INJECT 20 [facility] (NOVOLIN N 9-06 UNITS ity of NPH U-100 00:00: [place] INSULIN) 00 USLY ONCE Med[facility] 100 unit/mL DAILY WITH Br anch injection BREAKFAST insulin Yes [id number] INJECT 15 [facility] regular 9-06 UNITS ity of human 00:00: SUBCUTANEO [place] (NOVOLIN R 00 USLY THREE Med ical REGULAR TIMES Branch U-100 DAILY INSULN) 100 BEFORE unit/mL MEAL(S) injection ondansetron Yes [id number] DISSOLVE 1 [facility] 4 mg 9-06 TABLET IN ity of disintegrat 00:00: MOUTH [place] ing tablet 00 EVERY 8 Medica l HOURS Branch NEEDED FOR NAUSEA AND VOMITING FOR UP TO 4 DAYS insulin NPH Yes [id number] INJECT 20 [facility] (NOVOLIN N 9-06 UNITS ity of NPH U-100 00:00: [place] INSULIN) 00 USLY ONCE Med[facility] l 100 unit/mL DAILY WITH Br anch injection BREAKFAST insulin Yes [id number] INJECT 15 [facility] regular 9-06 UNITS ity of human 00:00: SUBCUTANEO [place] (NOVOLIN R 00 USLY THREE Med ical REGULAR TIMES Branch U-100 DAILY INSULN) 100 BEFORE unit/mL MEAL(S) injection ondansetron Yes [id number] DISSOLVE 1 [facility] 4 mg 9-06 TABLET IN ity of disintegrat 00:00: MOUTH [place] ing tablet 00 EVERY 8 Medica l HOURS Branch NEEDED FOR NAUSEA AND VOMITING FOR UP TO 4 DAYS insulin NPH Yes [id number] INJECT 20 [facility] (NOVOLIN N 9-06 UNITS ity of NPH U-100 00:00: [place] INSULIN) 00 USLY ONCE Med[facility] l 100 unit/mL DAILY WITH Br anch injection BREAKFAST insulin Yes [id number] INJECT 15 [facility] regular 9-06 UNITS ity of human 00:00: SUBCUTANEO [place] (NOVOLIN R 00 USLY THREE Med ical REGULAR TIMES Branch U-100 DAILY INSULN) 100 BEFORE unit/mL MEAL(S) injection ondansetron Yes [id number] DISSOLVE 1 [facility] 4 mg 9-06 TABLET IN ity of disintegrat 00:00: MOUTH [place] ing tablet 00 EVERY 8 Medica l HOURS Branch NEEDED FOR NAUSEA AND VOMITING FOR UP TO 4 DAYS insulin NPH Yes [id number] INJECT 20 [facility] (NOVOLIN N 9-06 UNITS ity of NPH U-100 00:00: [place] INSULIN) 00 USLY ONCE Med[facility] l 100 unit/mL DAILY WITH Br anch injection BREAKFAST insulin Yes [id number] INJECT 15 [facility] regular 9-06 UNITS ity of human 00:00: SUBCUTANEO [place] (NOVOLIN R 00 USLY THREE Med ical REGULAR TIMES Branch U-100 DAILY INSULN) 100 BEFORE unit/mL MEAL(S) injection ondansetron Yes [id number] DISSOLVE 1 [facility] 4 mg 9-06 TABLET IN ity of disintegrat 00:00: MOUTH [place] ing tablet 00 EVERY 8 Medica l HOURS Branch NEEDED FOR NAUSEA AND VOMITING FOR UP TO 4 DAYS insulin NPH Yes [id number] INJECT 20 [facility] (NOVOLIN N 9-06 UNITS ity of NPH U-100 00:00: [place] INSULIN) 00 USLY ONCE Med[facility] l 100 unit/mL DAILY WITH Br anch injection BREAKFAST insulin Yes [id number] INJECT 15 [facility] regular 9-06 UNITS ity of human 00:00: SUBCUTANEO [place] (NOVOLIN R 00 USLY THREE Med ical REGULAR TIMES Branch U-100 DAILY INSULN) 100 BEFORE unit/mL MEAL(S) injection ondansetron Yes [id number] DISSOLVE 1 [facility] 4 mg 9-06 TABLET IN ity of disintegrat 00:00: MOUTH [place] ing tablet 00 EVERY 8 Medica l HOURS Branch NEEDED FOR NAUSEA AND VOMITING FOR UP TO 4 DAYS insulin NPH Yes [id number] INJECT 20 [facility] (NOVOLIN N 9-06 UNITS ity of NPH U-100 00:00: [place] INSULIN) 00 USLY ONCE Med[facility] l 100 unit/mL DAILY WITH Br anch injection BREAKFAST insulin Yes [id number] INJECT 15 [facility] regular 9-06 UNITS ity of human 00:00: SUBCUTANEO [place] (NOVOLIN R 00 USLY THREE Med ical REGULAR TIMES Branch U-100 DAILY INSULN) 100 BEFORE unit/mL MEAL(S) injection ondansetron Yes [id number] DISSOLVE 1 [facility] 4 mg 9-06 TABLET IN ity of disintegrat 00:00: MOUTH [place] ing tablet 00 EVERY 8 Medica l HOURS Branch NEEDED FOR NAUSEA AND VOMITING FOR UP TO 4 DAYS insulin NPH Yes [id number] INJECT 20 [facility] (NOVOLIN N 9-06 UNITS ity of NPH U-100 00:00: [place] INSULIN) 00 USLY ONCE Med[facility] l 100 unit/mL DAILY WITH Br anch injection BREAKFAST insulin Yes [id number] INJECT 15 [facility] regular 9-06 UNITS ity of human 00:00: SUBCUTANEO [place] (NOVOLIN R 00 USLY THREE Med ical REGULAR TIMES Branch U-100 DAILY INSULN) 100 BEFORE unit/mL MEAL(S) injection ondansetron Yes [id number] DISSOLVE 1 [facility] 4 mg 9-06 TABLET IN ity of disintegrat 00:00: MOUTH [place] ing tablet 00 EVERY 8 Medica l HOURS Branch NEEDED FOR NAUSEA AND VOMITING FOR UP TO 4 DAYS insulin NPH Yes [id number] INJECT 20 [facility] (NOVOLIN N 9-06 UNITS ity of NPH U-100 00:00: [place] INSULIN) 00 USLY ONCE Medica l 100 unit/mL DAILY WITH Br anch injection BREAKFAST insulin Yes [id number] INJECT 15 [facility] regular 9-06 UNITS ity of human 00:00: SUBCUTANEO [place] (NOVOLIN R 00 USLY THREE Med ical REGULAR TIMES Branch U-100 DAILY INSULN) 100 BEFORE unit/mL MEAL(S) injection ondansetron Yes [id number] DISSOLVE 1 [facility] 4 mg 9-06 TABLET IN ity of disintegrat 00:00: MOUTH [place] ing tablet 00 EVERY 8 Medica l HOURS Branch NEEDED FOR NAUSEA AND VOMITING FOR UP TO 4 DAYS insulin NPH Yes [id number] INJECT 20 [facility] (NOVOLIN N 9-06 UNITS ity of NPH U-100 00:00: [place] INSULIN) 00 USLY ONCE Medica l 100 unit/mL DAILY WITH Br anch injection BREAKFAST insulin Yes [id number] INJECT 15 [facility] regular 9-06 UNITS ity of human 00:00: SUBCUTANEO [place] (NOVOLIN R 00 USLY THREE Med ical REGULAR TIMES Branch U-100 DAILY INSULN) 100 BEFORE unit/mL MEAL(S) injection ondansetron Yes [id number] DISSOLVE 1 [facility] 4 mg 9-06 TABLET IN ity of disintegrat 00:00: MOUTH [place] ing tablet 00 EVERY 8 Medica l HOURS Branch NEEDED FOR NAUSEA AND VOMITING FOR UP TO 4 DAYS insulin NPH Yes [id number] INJECT 20 [facility] (NOVOLIN N 9-06 UNITS ity of NPH U-100 00:00: [place] INSULIN) 00 USLY ONCE Medica l 100 unit/mL DAILY WITH Br anch injection BREAKFAST insulin Yes [id number] INJECT 15 [facility] regular 9-06 UNITS ity of human 00:00: SUBCUTANEO [place] (NOVOLIN R 00 USLY THREE Med ical REGULAR TIMES Branch U-100 DAILY INSULN) 100 BEFORE unit/mL MEAL(S) injection ondansetron Yes [id number] DISSOLVE 1 [facility] 4 mg 9-06 TABLET IN ity of disintegrat 00:00: MOUTH [place] ing tablet 00 EVERY 8 Medica l HOURS Branch NEEDED FOR NAUSEA AND VOMITING FOR UP TO 4 DAYS insulin NPH Yes [id number] INJECT 20 [facility] (NOVOLIN N 9-06 UNITS ity of NPH U-100 00:00: [place] INSULIN) 00 USLY ONCE Medica l 100 unit/mL DAILY WITH Br anch injection BREAKFAST insulin Yes [id number] INJECT 15 [facility] regular 9-06 UNITS ity of human 00:00: SUBCUTANEO [place] (NOVOLIN R 00 USLY THREE Med ical REGULAR TIMES Branch U-100 DAILY INSULN) 100 BEFORE unit/mL MEAL(S) injection ondansetron Yes [id number] DISSOLVE 1 [facility] 4 mg 9-06 TABLET IN ity of disintegrat 00:00: MOUTH [place] ing tablet 00 EVERY 8 Medica l HOURS Branch NEEDED FOR NAUSEA AND VOMITING FOR UP TO 4 DAYS insulin NPH Yes [id number] INJECT 20 [facility] (NOVOLIN N 9-06 UNITS ity of NPH U-100 00:00: [place] INSULIN) 00 USLY ONCE Medica l 100 unit/mL DAILY WITH Br anch injection BREAKFAST insulin Yes [id number] INJECT 15 [facility] regular 9-06 UNITS ity of human 00:00: SUBCUTANEO [place] (NOVOLIN R 00 USLY THREE Med ical REGULAR TIMES Branch U-100 DAILY INSULN) 100 BEFORE unit/mL MEAL(S) injection ondansetron Yes [id number] DISSOLVE 1 [facility] 4 mg 9-06 TABLET IN ity of disintegrat 00:00: MOUTH [place] ing tablet 00 EVERY 8 Medica l HOURS Branch NEEDED FOR NAUSEA AND VOMITING FOR UP TO 4 DAYS insulin NPH Yes [id number] INJECT 20 [facility] (NOVOLIN N 9-06 UNITS ity of NPH U-100 00:00: [place] INSULIN) 00 USLY ONCE Medica l 100 unit/mL DAILY WITH Br anch injection BREAKFAST insulin Yes [id number] INJECT 15 [facility] regular 9-06 UNITS ity of human 00:00: SUBCUTANEO [place] (NOVOLIN R 00 USLY THREE Med ical REGULAR TIMES Branch U-100 DAILY INSULN) 100 BEFORE unit/mL MEAL(S) injection ondansetron Yes [id number] DISSOLVE 1 [facility] 4 mg 9-06 TABLET IN ity of disintegrat 00:00: MOUTH [place] ing tablet 00 EVERY 8 Medica l HOURS Branch NEEDED FOR NAUSEA AND VOMITING FOR UP TO 4 DAYS insulin NPH Yes [id number] INJECT 20 [facility] (NOVOLIN N 9-06 UNITS ity of NPH U-100 00:00: [place] INSULIN) 00 USLY ONCE Medica l 100 unit/mL DAILY WITH Br anch injection BREAKFAST insulin Yes [id number] INJECT 15 [facility] regular 9-06 UNITS ity of human 00:00: SUBCUTANEO [place] (NOVOLIN R 00 USLY THREE Med ical REGULAR TIMES Branch U-100 DAILY INSULN) 100 BEFORE unit/mL MEAL(S) injection ondansetron Yes [id number] DISSOLVE 1 [facility] 4 mg 9-06 TABLET IN ity of disintegrat 00:00: MOUTH [place] ing tablet 00 EVERY 8 Medica l HOURS Branch NEEDED FOR NAUSEA AND VOMITING FOR UP TO 4 DAYS insulin NPH Yes [id number] INJECT 20 [facility] (NOVOLIN N 9-06 UNITS ity of NPH U-100 00:00: [place] INSULIN) 00 USLY ONCE Medica l 100 unit/mL DAILY WITH Br anch injection BREAKFAST insulin Yes [id number] INJECT 15 [facility] regular 9-06 UNITS ity of human 00:00: SUBCUTANEO [place] (NOVOLIN R 00 USLY THREE Med ical REGULAR TIMES Branch U-100 DAILY INSULN) 100 BEFORE unit/mL MEAL(S) injection ondansetron Yes [id number] DISSOLVE 1 [facility] 4 mg 9-06 TABLET IN ity of disintegrat 00:00: MOUTH [place] ing tablet 00 EVERY 8 Medica l HOURS Branch NEEDED FOR NAUSEA AND VOMITING FOR UP TO 4 DAYS insulin NPH Yes [id number] INJECT 20 [facility] (NOVOLIN N 9-06 UNITS ity of NPH U-100 00:00: [place] INSULIN) 00 USLY ONCE Medica l 100 unit/mL DAILY WITH Br anch injection BREAKFAST insulin Yes [id number] INJECT 15 [facility] regular 9-06 UNITS ity of human 00:00: SUBCUTANEO [place] (NOVOLIN R 00 USLY THREE Med ical REGULAR TIMES Branch U-100 DAILY INSULN) 100 BEFORE unit/mL MEAL(S) injection insulin NPH Yes [id number] INJECT 20 [facility] (NOVOLIN N 9-06 UNITS ity of NPH U-100 00:00: [place] INSULIN) 00 USLY ONCE Medica l 100 unit/mL DAILY WITH Br anch injection BREAKFAST insulin Yes [id number] INJECT 15 [facility] regular 9-06 UNITS ity of human 00:00: SUBCUTANEO [place] (NOVOLIN R 00 USLY THREE Med ical REGULAR TIMES Branch U-100 DAILY INSULN) 100 BEFORE unit/mL MEAL(S) injection insulin NPH Yes [id number] INJECT 20 [facility] (NOVOLIN N 9-06 UNITS ity of NPH U-100 00:00: [place] INSULIN) 00 USLY ONCE Medica l 100 unit/mL DAILY WITH Br anch injection BREAKFAST insulin Yes [id number] INJECT 15 [facility] regular 9-06 UNITS ity of human 00:00: SUBCUTANEO [place] (NOVOLIN R 00 USLY THREE Med ical REGULAR TIMES Branch U-100 DAILY INSULN) 100 BEFORE unit/mL MEAL(S) injection insulin NPH Yes [id number] INJECT 20 [facility] (NOVOLIN N 9-06 UNITS ity of NPH U-100 00:00: [place] INSULIN) 00 USLY ONCE Medica l 100 unit/mL DAILY WITH Br anch injection BREAKFAST insulin Yes [id number] INJECT 15 [facility] regular 9-06 UNITS ity of human 00:00: SUBCUTANEO [place] (NOVOLIN R 00 USLY THREE Med ical REGULAR TIMES Branch U-100 DAILY INSULN) 100 BEFORE unit/mL MEAL(S) injection insulin NPH Yes [id number] INJECT 20 [facility] (NOVOLIN N 9-06 UNITS ity of NPH U-100 00:00: [place] INSULIN) 00 USLY ONCE Medica l 100 unit/mL DAILY WITH Br anch injection BREAKFAST insulin Yes [id number] INJECT 15 [facility] regular 9-06 UNITS ity of human 00:00: SUBCUTANEO [place] (NOVOLIN R 00 USLY THREE Med ical REGULAR TIMES Branch U-100 DAILY INSULN) 100 BEFORE unit/mL MEAL(S) injection insulin NPH Yes [id number] INJECT 20 [facility] (NOVOLIN N 9-06 UNITS ity of NPH U-100 00:00: [place] INSULIN) 00 USLY ONCE Medica l 100 unit/mL DAILY WITH Br anch injection BREAKFAST insulin Yes [id number] INJECT 15 [facility] regular 9-06 UNITS ity of human 00:00: SUBCUTANEO [place] (NOVOLIN R 00 USLY THREE Med ical REGULAR TIMES Branch U-100 DAILY INSULN) 100 BEFORE unit/mL MEAL(S) injection insulin NPH Yes [id number] INJECT 20 [facility] (NOVOLIN N 9-06 UNITS ity of NPH U-100 00:00: [place] INSULIN) 00 USLY ONCE Med[facility] l 100 unit/mL DAILY WITH Br anch injection BREAKFAST insulin Yes [id number] INJECT 15 [facility] regular 9-06 UNITS ity of human 00:00: SUBCUTANEO [place] (NOVOLIN R 00 USLY THREE Med ical REGULAR TIMES Branch U-100 DAILY INSULN) 100 BEFORE unit/mL MEAL(S) injection insulin NPH Yes [id number] INJECT 20 [facility] (NOVOLIN N 9-06 UNITS ity of NPH U-100 00:00: [place] INSULIN) 00 USLY ONCE Med[facility] l 100 unit/mL DAILY WITH Br anch injection BREAKFAST insulin Yes [id number] INJECT 15 [facility] regular 9-06 UNITS ity of human 00:00: SUBCUTANEO [place] (NOVOLIN R 00 USLY THREE Med ical REGULAR TIMES Branch U-100 DAILY INSULN) 100 BEFORE unit/mL MEAL(S) injection insulin NPH Yes [id number] INJECT 20 [facility] (NOVOLIN N 9-06 UNITS ity of NPH U-100 00:00: [place] INSULIN) 00 USLY ONCE Med[facility] l 100 unit/mL DAILY WITH Br anch injection BREAKFAST insulin Yes [id number] INJECT 15 [facility] regular 9-06 UNITS ity of human 00:00: SUBCUTANEO [place] (NOV[facility]IN R 00 USLY THREE Med ical REGULAR TIMES Branch U-100 DAILY INSULN) 100 BEFORE unit/mL MEAL(S) injection insulin NPH Yes [id number] INJECT 20 [facility] (NOVOLIN N 9-06 UNITS ity of NPH U-100 00:00: [place] INSULIN) 00 USLY ONCE Med[facility] l 100 unit/mL DAILY WITH Br anch injection BREAKFAST insulin Yes [id number] INJECT 15 [facility] regular 9-06 UNITS ity of human 00:00: SUBCUTANEO [place] (NOVOLIN R 00 USLY THREE Med ical REGULAR TIMES Branch U-100 DAILY INSULN) 100 BEFORE unit/mL MEAL(S) injection insulin NPH Yes [id number] INJECT 20 [facility] (NOVOLIN N 9-06 UNITS ity of NPH U-100 00:00: [place] INSULIN[place] 00 USLY ONCE Medica l 100 unit/mL DAILY WITH Br anch injection BREAKFAST insulin Yes [id number] INJECT 15 [facility] regular 9-06 UNITS ity of human 00:00: SUBCUTANEO [place] (NOVOLIN R 00 USLY THREE Med ical REGULAR TIMES Branch U-100 DAILY INSULN) 100 BEFORE unit/mL MEAL(S) injection insulin NPH Yes [id number] INJECT 20 [facility] (NOVOLIN N 9-06 UNITS ity of NPH U-100 00:00: [place] INSULIN) 00 USLY ONCE Med[facility] l 100 unit/mL DAILY WITH Br anch injection BREAKFAST insulin Yes [id number] INJECT 15 [facility] regular 9-06 UNITS ity of human 00:00: SUBCUTANEO [place] (NOVOLIN R 00 USLY THREE Med ical REGULAR TIMES Branch U-100 DAILY INSULN) 100 BEFORE unit/mL MEAL(S) injection insulin NPH Yes [id number] INJECT 20 [facility] (NOVOLIN N 9-06 UNITS ity of NPH U-100 00:00: [place] INSULIN) 00 USLY ONCE Medica l 100 unit/mL DAILY WITH Br anch injection BREAKFAST insulin Yes [id number] INJECT 15 [facility] regular 9-06 UNITS ity of human 00:00: SUBCUTANEO [place] (NOVOLIN R 00 USLY THREE Med ical REGULAR TIMES Branch U-100 DAILY INSULN) 100 BEFORE unit/mL MEAL(S) injection insulin NPH Yes [id number] INJECT 20 [facility] (NOVOLIN N 9-06 UNITS ity of NPH U-100 00:00: [place] INSULIN[place] 00 USLY ONCE Medica l 100 unit/mL DAILY WITH Br anch injection BREAKFAST insulin Yes [id number] INJECT 15 [facility] regular 9-06 UNITS ity of human 00:00: SUBCUTANEO [place] (NOVOLIN R 00 USLY THREE Med ical REGULAR TIMES Branch U-100 DAILY INSULN) 100 BEFORE unit/mL MEAL(S) injection insulin NPH Yes [id number] INJECT 20 [facility] (NOVOLIN N 9-06 UNITS ity of NPH U-100 00:00: [place] INSULIN[place] 00 USLY ONCE Medica l 100 unit/mL DAILY WITH Br anch injection BREAKFAST insulin Yes [id number] INJECT 15 [facility] regular 9-06 UNITS ity of human 00:00: SUBCUTANEO [place] (NOV[facility]IN R 00 USLY THREE Med ical REGULAR TIMES Branch U-100 DAILY INSULN) 100 BEFORE unit/mL MEAL(S) injection insulin NPH Yes [id number] INJECT 20 [facility] (NOVOLIN N 9-06 UNITS ity of NPH U-100 00:00: [place] INSULIN[place] 00 USLY ONCE Medica l 100 unit/mL DAILY WITH Br anch injection BREAKFAST insulin Yes [id number] INJECT 15 [facility] regular 9-06 UNITS ity of human 00:00: SUBCUTANEO [place] (NOVOLIN R 00 USLY THREE Med ical REGULAR TIMES Branch U-100 DAILY INSULN) 100 BEFORE unit/mL MEAL(S) injection insulin NPH Yes [id number] INJECT 20 [facility] (NOVOLIN N 9-06 UNITS ity of NPH U-100 00:00: [place] [facility]ULIN[place] 00 USLY ONCE Medica l 100 unit/mL DAILY WITH Br anch injection BREAKFAST insulin Yes [id number] INJECT 15 [facility] regular 9-06 UNITS ity of human 00:00: SUBCUTANEO [place] (NOVOLIN R 00 USLY THREE Med ical REGULAR TIMES Branch U-100 DAILY INSULN) 100 BEFORE unit/mL MEAL(S) injection insulin NPH Yes [id number] INJECT 20 [facility] (NOVOLIN N 9-06 UNITS ity of NPH U-100 00:00: [place] [facility]ULIN[place] 00 USLY ONCE Medica l 100 unit/mL DAILY WITH Br anch injection BREAKFAST insulin Yes [id number] INJECT 15 [facility] regular 9-06 UNITS ity of human 00:00: SUBCUTANEO [place] (NOVOLIN R 00 USLY THREE Med ical REGULAR TIMES Branch U-100 DAILY INSULN) 100 BEFORE unit/mL MEAL(S) injection insulin NPH Yes [id number] INJECT 20 [facility] (NOVOLIN N 9-06 UNITS ity of NPH U-100 00:00: [place] [facility]ULIN[place] 00 USLY ONCE Medica l 100 unit/mL DAILY WITH Br anch injection BREAKFAST insulin Yes [id number] INJECT 15 [facility] regular 9-06 UNITS ity of human 00:00: SUBCUTANEO [place] (NOVOLIN R 00 USLY THREE Med ical REGULAR TIMES Branch U-100 DAILY INSULN) 100 BEFORE unit/mL MEAL(S) injection insulin NPH Yes [id number] INJECT 20 [facility] (NOVOLIN N 9-06 UNITS ity of NPH U-100 00:00: [place] [facility]ULIN[place] 00 USLY ONCE Medica l 100 unit/mL DAILY WITH Br anch injection BREAKFAST insulin Yes [id number] INJECT 15 [facility] regular 9-06 UNITS ity of human 00:00: SUBCUTANEO [place] (NOVOLIN R 00 USLY THREE Med ical REGULAR TIMES Branch U-100 DAILY INSULN) 100 BEFORE unit/mL MEAL(S) injection insulin NPH Yes [id number] INJECT 20 [facility] (NOVOLIN N 9-06 UNITS ity of NPH U-100 00:00: [place] [facility] 00 USLY ONCE Medica l 100 unit/mL DAILY WITH Br anch injection BREAKFAST insulin Yes [id number] INJECT 15 [facility] regular 9-06 UNITS ity of human 00:00: SUBCUTANEO [place] (NOVOLIN R 00 USLY THREE Med ical REGULAR TIMES Branch U-100 DAILY INSULN) 100 BEFORE unit/mL MEAL(S) injection insulin NPH Yes [id number] INJECT 20 [facility] (NOVOLIN N 9-06 UNITS ity of NPH U-100 00:00: [place] [facility] 00 USLY ONCE Medica l 100 unit/mL DAILY WITH Br anch injection BREAKFAST insulin Yes [id number] INJECT 15 [facility] regular 9-06 UNITS ity of human 00:00: SUBCUTANEO [place] (NOVOLIN R 00 USLY THREE Med ical REGULAR TIMES Branch U-100 DAILY INSULN) 100 BEFORE unit/mL MEAL(S) injection insulin NPH Yes [id number] INJECT 20 [facility] (NOVOLIN N 9-06 UNITS ity of NPH U-100 00:00: [place] [facility] 00 USLY ONCE Medica l 100 unit/mL DAILY WITH Br anch injection BREAKFAST insulin Yes [id number] INJECT 15 [facility] regular 9-06 UNITS ity of human 00:00: SUBCUTANEO [place] (NOVOLIN R 00 USLY THREE Med ical REGULAR TIMES Branch U-100 DAILY INSULN) 100 BEFORE unit/mL MEAL(S) injection insulin NPH Yes [id number] INJECT 20 [facility] (NOVOLIN N 9-06 UNITS ity of NPH U-100 00:00: [place] [facility] 00 USLY ONCE Medica l 100 unit/mL DAILY WITH Br anch injection BREAKFAST insulin Yes [id number] INJECT 15 [facility] regular 9-06 UNITS ity of human 00:00: SUBCUTANEO [place] (NOVOLIN R 00 USLY THREE Med ical REGULAR TIMES Branch U-100 DAILY INSULN) 100 BEFORE unit/mL MEAL(S) injection insulin NPH Yes [id number] INJECT 20 [facility] (NOVOLIN N 9-06 UNITS ity of NPH U-100 00:00: [place] [facility] 00 USLY ONCE Medica l 100 unit/mL DAILY WITH Br anch injection BREAKFAST insulin Yes [id number] INJECT 15 [facility] regular 9-06 UNITS ity of human 00:00: SUBCUTANEO [place] (NOVOLIN R 00 USLY THREE Med ical REGULAR TIMES Branch U-100 DAILY INSULN) 100 BEFORE unit/mL MEAL(S) injection insulin NPH Yes [id number] INJECT 20 [facility] (NOVOLIN N 9-06 UNITS ity of NPH U-100 00:00: [place] [facility] 00 USLY ONCE Medica l 100 unit/mL DAILY WITH Br anch injection BREAKFAST insulin Yes [id number] INJECT 15 [facility] regular 9-06 UNITS ity of human 00:00: SUBCUTANEO [place] (NOVOLIN R 00 USLY THREE Med ical REGULAR TIMES Branch U-100 DAILY INSULN) 100 BEFORE unit/mL MEAL(S) injection insulin NPH Yes [id number] INJECT 20 [facility] (NOVOLIN N - UNITS ity of NPH U-100 00:00: [place]BCUTANE[place] INSULIN) 00 USLY ONCE Medica l 100 unit/mL DAILY WITH Br anch injection BREAKFAST insulin Yes [id number] INJECT 15 [facility] regular 9-06 UNITS ity of human 00:00: SUBCUTANEO [place] (NOVOLIN R 00 USLY THREE Med ical REGULAR TIMES Branch U-100 DAILY INSULN) 100 BEFORE unit/mL MEAL(S) injection insulin NPH Yes [id number] INJECT 20 [facility] (NOVOLIN N - UNITS ity of NPH U-100 00:00: [place] INSULIN[place] 00 USLY ONCE Medica l 100 unit/mL DAILY WITH Br anch injection BREAKFAST insulin Yes [id number] INJECT 15 [facility] regular 9-06 UNITS ity of human 00:00: SUBCUTANEO [place] (NOVOLIN R 00 USLY THREE Med ical REGULAR TIMES Branch U-100 DAILY INSULN) 100 BEFORE unit/mL MEAL(S) injection insulin NPH 2022- No [id number] INJECT 20 [facility] (NOVOLIN N 04-18- UNITS ity of NPH U-100 00:00: 00:00 [place] INSULIN) 00 :00 USLY ONCE Medica l 100 unit/mL DAILY WITH Br anch injection BREAKFAST insulin 2022- No [id number] INJECT 15 [facility] regular 04-18 02- UNITS ity of human 00:00: 00:00 SUBCUTANEO [place] (NOVOLIN R 00 :00 USLY THREE Med ical REGULAR TIMES Branch U-100 DAILY INSULN) 100 BEFORE unit/mL MEAL(S) injection insulin NPH 2022- No [id number] INJECT 20 [facility] (NOVOLIN N 04-18- UNITS ity of NPH U-100 00:00: 00:00 [place] INSULIN) 00 :00 USLY ONCE Medica l 100 unit/mL DAILY WITH Br anch injection BREAKFAST insulin 2022- No [id number] INJECT 15 [facility] regular 04-18 UNITS ity of human 00:00: 00:00 [facility] (NOVOLIN R 00 :00 USLY THREE Med ical REGULAR TIMES Branch U-100 DAILY INSULN) 100 BEFORE unit/mL MEAL(S) injection insulin NPH 2022- No [id number] INJECT 20 [facility] (NOVOLIN N 04-18 UNITS ity of NPH U-100 00:00: 00:00 [place] INSULIN) 00 :00 USLY ONCE Medica l 100 unit/mL DAILY WITH Br anch injection BREAKFAST insulin No [id number] INJECT 15 [facility] regular 04-18 UNITS ity of human 00:00: 00:00 [facility] (NOVOLIN R 00 :00 USLY THREE Med ical REGULAR TIMES Branch U-100 DAILY INSULN) 100 BEFORE unit/mL MEAL(S) injection ondansetron 2021- No [id number] DISSOLVE 1 [facility] 4 mg 04-18- TABLET IN ity of disintegrat 00:00: 00:[place] 00 :00 EVERY 8 Medica l HOURS Branch NEEDED FOR NAUSEA AND VOMITING FOR UP TO 4 DAYS ondansetron 2021- No [id number] DISSOLVE 1 [facility] 4 mg 04-18-05 TABLET IN ity of disintegrat 00:00: 00:[place] 00 :00 EVERY 8 Medica l HOURS Branch NEEDED FOR NAUSEA AND VOMITING FOR UP TO 4 DAYS ondansetron 2021- No [id number] DISSOLVE 1 [facility] 4 mg 04-18-05 TABLET IN ity of disintegrat 00:00: 00:[place] 00 :00 EVERY 8 Medica l HOURS Branch NEEDED FOR NAUSEA AND VOMITING FOR UP TO 4 DAYS ondansetron 2021- No [id number] DISSOLVE 1 [facility] 4 mg 04-18-05 TABLET IN ity of disintegrat 00:00: 00:[place] 00 :00 EVERY 8 Medica l HOURS Branch NEEDED FOR NAUSEA AND VOMITING FOR UP TO 4 DAYS gabapentin 2022-0 2- No [id number] 400mg Take 1 [facility] 400 mg 04-18 9100 capsule by ity of capsule 00:00: 00:00 mouth in [place] 00 :00 the Medical morning Branch and 1 capsule at noon and 1 capsule in the evening. gabapentin 2022-0 2- No [id number] 400mg Take 1 [facility] 400 mg 04-18 9100 capsule by ity of capsule 00:00: 00:00 mouth in [place] 00 :00 the Medical morning Branch and 1 capsule at noon and 1 capsule in the evening. PROMETHAZIN 2021-0 Yes [id number] TAKE 2 [facility] E 12.5 mg 8-15 TABLETS BY ity of tablet 00:00: MOUTH [place] 00 EVERY 6 Medical HOURS Branch NEEDED FOR VERTIGO PROMETHAZIN 2022-0 Yes [id number] TAKE 2 [facility] E 12.5 mg 8-15 TABLETS BY ity of tablet 00:00: MOUTH [place] 00 EVERY 6 Medical HOURS Branch NEEDED FOR VERTIGO PROMETHAZIN 2022-0 Yes [id number] TAKE 2 [facility] E 12.5 mg 8-15 TABLETS BY ity of tablet 00:00: MOUTH [place] 00 EVERY 6 Medical HOURS Branch NEEDED FOR VERTIGO PROMETHAZIN 2022-0 Yes [id number] TAKE 2 [facility] E 12.5 mg 8-15 TABLETS BY ity of tablet 00:00: MOUTH [place] 00 EVERY 6 Medical HOURS Branch NEEDED FOR VERTIGO PROMETHAZIN 2022-0 Yes [id number] TAKE 2 [facility] E 12.5 mg 8-15 TABLETS BY ity of tablet 00:00: MOUTH [place] 00 EVERY 6 Medical HOURS Branch NEEDED FOR VERTIGO PROMETHAZIN 2022-0 Yes [id number] TAKE 2 [facility] E 12.5 mg 8-15 TABLETS BY ity of tablet 00:00: MOUTH [place] 00 EVERY 6 Medical HOURS Branch NEEDED FOR VERTIGO PROMETHAZIN 2022-0 Yes [id number] TAKE 2 [facility] E 12.5 mg 8-15 TABLETS BY ity of tablet 00:00: MOUTH [place] 00 EVERY 6 Medical HOURS Branch NEEDED FOR VERTIGO PROMETHAZIN 2022-0 Yes [id number] TAKE 2 [facility] E 12.5 mg 8-15 TABLETS BY ity of tablet 00:00: MOUTH [place] 00 EVERY 6 Medical HOURS Branch NEEDED FOR VERTIGO PROMETHAZIN Yes [id number] TAKE 2 [facility] E 12.5 mg 8-15 TABLETS BY ity of tablet 00:00: MOUTH [place] 00 EVERY 6 Medical HOURS Branch NEEDED FOR VERTIGO PROMETHAZIN 0 2021- No [id number] TAKE 2 [facility] E 12.5 mg 8-15 10-10 TABLETS BY ity of tablet 00:00: 00:00 MOUTH [place] 00 :00 EVERY 6 Medical HOURS Branch NEEDED FOR VERTIGO PROMETHAZIN 2021- No [id number] TAKE 2 [facility] E 12.5 mg 8-15 10-10 TABLETS BY ity of tablet 00:00: 00:00 MOUTH [place] 00 :00 EVERY 6 Medical HOURS Branch NEEDED FOR VERTIGO PROMETHAZIN 2021- No [id number] TAKE 2 [facility] E 12.5 mg 8-15 10-10 TABLETS BY ity of tablet 00:00: 00:00 MOUTH [place] 00 :00 EVERY 6 Medical HOURS Branch NEEDED FOR VERTIGO atorvastati Yes [id number] 20mg Take 1 [facility] n 20 mg 6-06 tablet by ity of tablet 00:00: mouth at [place] 00 bedtime. Medical Branch escitalopra Yes [id number] 20mg Take 1 [facility] m oxalate 6-06 tablet by ity o f (LEXAPRO) 00:00: mouth [place] 20 mg 00 daily. Medical tablet Branch glyBURIDE 5 Yes [id number] TAKE 1 [facility] mg tablet 6-06 TABLET BY ity o f 00:00: MOUTH [place] 00 TWICE Medical DAILY WITH Branch MEALS (NEEDS FOLLOW UP VISIT FOR FURTHER REFILLS) atorvastati Yes [id number] 20mg Take 1 [facility] n 20 mg 6-06 tablet by ity of tablet 00:00: mouth at [place] 00 bedtime. Medical Branch escitalopra Yes [id number] 20mg Take 1 [facility] m oxalate 6-06 tablet by ity o f (LEXAPRO) 00:00: mouth [place] 20 mg 00 daily. Medical tablet Branch glyBURIDE 5 Yes [id number] TAKE 1 [facility] mg tablet 6-06 TABLET BY ity o f 00:00: MOUTH [place] 00 TWICE Medical DAILY WITH Branch MEALS (NEEDS FOLLOW UP VISIT FOR FURTHER REFILLS) atorvastati Yes [id number] 20mg Take 1 [facility] n 20 mg 6-06 tablet by ity of tablet 00:00: mouth at [place] 00 bedtime. Medical Branch escitalopra Yes [id number] 20mg Take 1 [facility] m oxalate 6-06 tablet by ity o f (LEXAPRO) 00:00: mouth [place] 20 mg 00 daily. Medical tablet Branch glyBURIDE 5 Yes [id number] TAKE 1 [facility] mg tablet 6-06 TABLET BY ity o f 00:00: MOUTH [place] 00 TWICE Medical DAILY WITH Branch MEALS (NEEDS FOLLOW UP VISIT FOR FURTHER REFILLS) atorvastati Yes [id number] 20mg Take 1 [facility] n 20 mg 6-06 tablet by ity of tablet 00:00: mouth at [place] 00 bedtime. Medical Branch escitalopra Yes [id number] 20mg Take 1 [facility] m oxalate 6-06 tablet by ity o f (LEXAPRO) 00:00: mouth [place] 20 mg 00 daily. Medical tablet Branch glyBURIDE 5 Yes [id number] TAKE 1 [facility] mg tablet 6-06 TABLET BY ity o f 00:00: MOUTH [place] 00 TWICE Medical DAILY WITH Branch MEALS (NEEDS FOLLOW UP VISIT FOR FURTHER REFILLS) atorvastati Yes [id number] 20mg Take 1 [facility] n 20 mg 6-06 tablet by ity of tablet 00:00: mouth at [place] 00 bedtime. Medical Branch escitalopra Yes [id number] 20mg Take 1 [facility] m oxalate 6-06 tablet by ity o f (LEXAPRO) 00:00: mouth [place] 20 mg 00 daily. Medical tablet Branch glyBURIDE 5 Yes [id number] TAKE 1 [facility] mg tablet 6-06 TABLET BY ity o f 00:00: MOUTH [place] 00 TWICE Medical DAILY WITH Branch MEALS (NEEDS FOLLOW UP VISIT FOR FURTHER REFILLS) atorvastati Yes [id number] 20mg Take 1 [facility] n 20 mg 6-06 tablet by ity of tablet 00:00: mouth at [place] 00 bedtime. Medical Branch escitalopra Yes [id number] 20mg Take 1 [facility] m oxalate 6-06 tablet by ity o f (LEXAPRO) 00:00: mouth [place] 20 mg 00 daily. Medical tablet Branch glyBURIDE 5 Yes [id number] TAKE 1 [facility] mg tablet 6-06 TABLET BY ity o f 00:00: MOUTH [place] 00 TWICE Medical DAILY WITH Branch MEALS (NEEDS FOLLOW UP VISIT FOR FURTHER REFILLS) atorvastati Yes [id number] 20mg Take 1 [facility] n 20 mg 6-06 tablet by ity of tablet 00:00: mouth at [place] 00 bedtime. Medical Branch escitalopra Yes [id number] 20mg Take 1 [facility] m oxalate 6-06 tablet by ity o f (LEXAPRO) 00:00: mouth [place] 20 mg 00 daily. Medical tablet Branch glyBURIDE 5 Yes [id number] TAKE 1 [facility] mg tablet 6-06 TABLET BY ity o f 00:00: MOUTH [place] 00 TWICE Medical DAILY WITH Branch MEALS (NEEDS FOLLOW UP VISIT FOR FURTHER REFILLS) atorvastati Yes [id number] 20mg Take 1 [facility] n 20 mg 6-06 tablet by ity of tablet 00:00: mouth at [place] 00 bedtime. Medical Branch escitalopra Yes [id number] 20mg Take 1 [facility] m oxalate 6-06 tablet by ity o f (LEXAPRO) 00:00: mouth [place] 20 mg 00 daily. Medical tablet Branch glyBURIDE 5 Yes [id number] TAKE 1 [facility] mg tablet 6-06 TABLET BY ity o f 00:00: MOUTH [place] 00 TWICE Medical DAILY WITH Branch MEALS (NEEDS FOLLOW UP VISIT FOR FURTHER REFILLS) atorvastati Yes [id number] 20mg Take 1 [facility] n 20 mg 6-06 tablet by ity of tablet 00:00: mouth at [place] 00 bedtime. Medical Branch escitalopra Yes [id number] 20mg Take 1 [facility] m oxalate 6-06 tablet by ity o f (LEXAPRO) 00:00: mouth [place] 20 mg 00 daily. Medical tablet Branch glyBURIDE 5 Yes [id number] TAKE 1 [facility] mg tablet 6-06 TABLET BY ity o f 00:00: MOUTH [place] 00 TWICE Medical DAILY WITH Branch MEALS (NEEDS FOLLOW UP VISIT FOR FURTHER REFILLS) atorvastati Yes [id number] 20mg Take 1 [facility] n 20 mg 6-06 tablet by ity of tablet 00:00: mouth at [place] 00 bedtime. Medical Branch escitalopra Yes [id number] 20mg Take 1 [facility] m oxalate 6-06 tablet by ity o f (LEXAPRO) 00:00: mouth [place] 20 mg 00 daily. Medical tablet Branch glyBURIDE 5 Yes [id number] TAKE 1 [facility] mg tablet 6-06 TABLET BY ity o f 00:00: MOUTH [place] 00 TWICE Medical DAILY WITH Branch MEALS (NEEDS FOLLOW UP VISIT FOR FURTHER REFILLS) atorvastati Yes [id number] 20mg Take 1 [facility] n 20 mg 6-06 tablet by ity of tablet 00:00: mouth at [place] 00 bedtime. Medical Branch escitalopra Yes [id number] 20mg Take 1 [facility] m oxalate 6-06 tablet by ity o f (LEXAPRO) 00:00: mouth [place] 20 mg 00 daily. Medical tablet Branch glyBURIDE 5 Yes [id number] TAKE 1 [facility] mg tablet 6-06 TABLET BY ity o f 00:00: MOUTH [place] 00 TWICE Medical DAILY WITH Branch MEALS (NEEDS FOLLOW UP VISIT FOR FURTHER REFILLS) atorvastati Yes [id number] 20mg Take 1 [facility] n 20 mg 6-06 tablet by ity of tablet 00:00: mouth at [place] 00 bedtime. Medical Branch escitalopra Yes [id number] 20mg Take 1 [facility] m oxalate 6-06 tablet by ity o f (LEXAPRO) 00:00: mouth [place] 20 mg 00 daily. Medical tablet Branch glyBURIDE 5 Yes [id number] TAKE 1 [facility] mg tablet 6-06 TABLET BY ity o f 00:00: MOUTH [place] 00 TWICE Medical DAILY WITH Branch MEALS (NEEDS FOLLOW UP VISIT FOR FURTHER REFILLS) atorvastati Yes [id number] 20mg Take 1 [facility] n 20 mg 6-06 tablet by ity of tablet 00:00: mouth at [place] 00 bedtime. Medical Branch escitalopra Yes [id number] 20mg Take 1 [facility] m oxalate 6-06 tablet by ity o f (LEXAPRO) 00:00: mouth [place] 20 mg 00 daily. Medical tablet Branch glyBURIDE 5 Yes [id number] TAKE 1 [facility] mg tablet 6-06 TABLET BY ity o f 00:00: MOUTH [place] 00 TWICE Medical DAILY WITH Branch MEALS (NEEDS FOLLOW UP VISIT FOR FURTHER REFILLS) atorvastati Yes [id number] 20mg Take 1 [facility] n 20 mg 6-06 tablet by ity of tablet 00:00: mouth at [place] 00 bedtime. Medical Branch escitalopra Yes [id number] 20mg Take 1 [facility] m oxalate 6-06 tablet by ity o f (LEXAPRO) 00:00: mouth [place] 20 mg 00 daily. Medical tablet Branch glyBURIDE 5 Yes [id number] TAKE 1 [facility] mg tablet 6-06 TABLET BY ity o f 00:00: MOUTH [place] 00 TWICE Medical DAILY WITH Branch MEALS (NEEDS FOLLOW UP VISIT FOR FURTHER REFILLS) atorvastati Yes [id number] 20mg Take 1 [facility] n 20 mg 6-06 tablet by ity of tablet 00:00: mouth at [place] 00 bedtime. Medical Branch escitalopra Yes [id number] 20mg Take 1 [facility] m oxalate 6-06 tablet by ity o f (LEXAPRO) 00:00: mouth [place] 20 mg 00 daily. Medical tablet Branch glyBURIDE 5 Yes [id number] TAKE 1 [facility] mg tablet 6-06 TABLET BY ity o f 00:00: MOUTH [place] 00 TWICE Medical DAILY WITH Branch MEALS (NEEDS FOLLOW UP VISIT FOR FURTHER REFILLS) atorvastati Yes [id number] 20mg Take 1 [facility] n 20 mg 6-06 tablet by ity of tablet 00:00: mouth at [place] 00 bedtime. Medical Branch escitalopra Yes [id number] 20mg Take 1 [facility] m oxalate 6-06 tablet by ity o f (LEXAPRO) 00:00: mouth [place] 20 mg 00 daily. Medical tablet Branch glyBURIDE 5 Yes [id number] TAKE 1 [facility] mg tablet 6-06 TABLET BY ity o f 00:00: MOUTH [place] 00 TWICE Medical DAILY WITH Branch MEALS (NEEDS FOLLOW UP VISIT FOR FURTHER REFILLS) atorvastati Yes [id number] 20mg Take 1 [facility] n 20 mg 6-06 tablet by ity of tablet 00:00: mouth at [place] 00 bedtime. Medical Branch escitalopra Yes [id number] 20mg Take 1 [facility] m oxalate 6-06 tablet by ity o f (LEXAPRO) 00:00: mouth [place] 20 mg 00 daily. Medical tablet Branch glyBURIDE 5 Yes [id number] TAKE 1 [facility] mg tablet 6-06 TABLET BY ity o f 00:00: MOUTH [place] 00 TWICE Medical DAILY WITH Branch MEALS (NEEDS FOLLOW UP VISIT FOR FURTHER REFILLS) atorvastati Yes [id number] 20mg Take 1 [facility] n 20 mg 6-06 tablet by ity of tablet 00:00: mouth at [place] 00 bedtime. Medical Branch escitalopra Yes [id number] 20mg Take 1 [facility] m oxalate 6-06 tablet by ity o f (LEXAPRO) 00:00: mouth [place] 20 mg 00 daily. Medical tablet Branch glyBURIDE 5 Yes [id number] TAKE 1 [facility] mg tablet 6-06 TABLET BY ity o f 00:00: MOUTH [place] 00 TWICE Medical DAILY WITH Branch MEALS (NEEDS FOLLOW UP VISIT FOR FURTHER REFILLS) escitalopra Yes [id number] 20mg Take 1 [facility] m oxalate 6-06 tablet by ity o f (LEXAPRO) 00:00: mouth [place] 20 mg 00 daily. Medical tablet Branch glyBURIDE 5 Yes [id number] TAKE 1 [facility] mg tablet 6-06 TABLET BY ity o f 00:00: MOUTH [place] 00 TWICE Medical DAILY WITH Branch MEALS (NEEDS FOLLOW UP VISIT FOR FURTHER REFILLS) escitalopra Yes [id number] 20mg Take 1 [facility] m oxalate 6-06 tablet by ity o f (LEXAPRO) 00:00: mouth [place] 20 mg 00 daily. Medical tablet Branch glyBURIDE 5 Yes [id number] TAKE 1 [facility] mg tablet 6-06 TABLET BY ity o f 00:00: MOUTH [place] 00 TWICE Medical DAILY WITH Branch MEALS (NEEDS FOLLOW UP VISIT FOR FURTHER REFILLS) escitalopra Yes [id number] 20mg Take 1 [facility] m oxalate 6-06 tablet by ity o f (LEXAPRO) 00:00: mouth [place] 20 mg 00 daily. Medical tablet Branch glyBURIDE 5 Yes [id number] TAKE 1 [facility] mg tablet 6-06 TABLET BY ity o f 00:00: MOUTH [place] 00 TWICE Medical DAILY WITH Branch MEALS (NEEDS FOLLOW UP VISIT FOR FURTHER REFILLS) escitalopra Yes [id number] 20mg Take 1 [facility] m oxalate 6-06 tablet by ity o f (LEXAPRO) 00:00: mouth [place] 20 mg 00 daily. Medical tablet Branch glyBURIDE 5 Yes [id number] TAKE 1 [facility] mg tablet 6-06 TABLET BY ity o f 00:00: MOUTH [place] 00 TWICE Medical DAILY WITH Branch MEALS (NEEDS FOLLOW UP VISIT FOR FURTHER REFILLS) escitalopra Yes [id number] 20mg Take 1 [facility] m oxalate 6-06 tablet by ity o f (LEXAPRO) 00:00: mouth [place] 20 mg 00 daily. Medical tablet Branch glyBURIDE 5 Yes [id number] TAKE 1 [facility] mg tablet 6-06 TABLET BY ity o f 00:00: MOUTH [place] 00 TWICE Medical DAILY WITH Branch MEALS (NEEDS FOLLOW UP VISIT FOR FURTHER REFILLS) escitalopra Yes [id number] 20mg Take 1 [facility] m oxalate 6-06 tablet by ity o f (LEXAPRO) 00:00: mouth [place] 20 mg 00 daily. Medical tablet Branch glyBURIDE 5 Yes [id number] TAKE 1 [facility] mg tablet 6-06 TABLET BY ity o f 00:00: MOUTH [place] 00 TWICE Medical DAILY WITH Branch MEALS (NEEDS FOLLOW UP VISIT FOR FURTHER REFILLS) escitalopra Yes [id number] 20mg Take 1 [facility] m oxalate 6-06 tablet by ity o f (LEXAPRO) 00:00: mouth [place] 20 mg 00 daily. Medical tablet Branch glyBURIDE 5 Yes [id number] TAKE 1 [facility] mg tablet 6-06 TABLET BY ity o f 00:00: MOUTH [place] 00 TWICE Medical DAILY WITH Branch MEALS (NEEDS FOLLOW UP VISIT FOR FURTHER REFILLS) glyBURIDE 5 Yes [id number] TAKE 1 [facility] mg tablet 6-06 TABLET BY ity o f 00:00: MOUTH [place] 00 TWICE Medical DAILY WITH Branch MEALS (NEEDS FOLLOW UP VISIT FOR FURTHER REFILLS) glyBURIDE 5 Yes [id number] TAKE 1 [facility] mg tablet 6-06 TABLET BY ity o f 00:00: MOUTH [place] 00 TWICE Medical DAILY WITH Branch MEALS (NEEDS FOLLOW UP VISIT FOR FURTHER REFILLS) atorvastati Yes [id number] 20mg Take 1 [facility] n 20 mg 6-06 tablet by ity of tablet 00:00: mouth at [place] 00 bedtime. Medical Branch empaglifloz Yes [id number] 25mg Take 1 [facility] in 6-06 tablet by ity of (JARDIANCE) 00:00: mouth [place] 25 mg Tab 00 every Medical morning. Branch escitalopra Yes [id number] 20mg Take 1 [facility] m oxalate 6-06 tablet by ity o f (LEXAPRO) 00:00: mouth [place] 20 mg 00 daily. Medical tablet Branch glyBURIDE 5 Yes [id number] TAKE 1 [facility] mg tablet 6-06 TABLET BY ity o f 00:00: MOUTH [place] 00 TWICE Medical DAILY WITH Branch MEALS (NEEDS FOLLOW UP VISIT FOR FURTHER REFILLS) NUVARING Yes [id number] 1{each} Insert 1 [facility] (NUVARING) 6-06 Each into ity of 0.12-0.015 00:00: vagina [place] mg/24 hr 00 once every Medic al vaginal month. Branch insert Insert vaginally and leave in place for 3 consecutiv e weeks, then remove for 1 week. atorvastati Yes [id number] 20mg Take 1 [facility] n 20 mg 6-06 tablet by ity of tablet 00:00: mouth at [place] 00 bedtime. Medical Branch empaglifloz Yes [id number] 25mg Take 1 [facility] in 6-06 tablet by ity of (JARDIANCE) 00:00: mouth [place] 25 mg Tab 00 every Medical morning. Branch escitalopra Yes [id number] 20mg Take 1 [facility] m oxalate 6-06 tablet by ity o f (LEXAPRO) 00:00: mouth [place] 20 mg 00 daily. Medical tablet Branch glyBURIDE 5 Yes [id number] TAKE 1 [facility] mg tablet 6-06 TABLET BY ity o f 00:00: MOUTH [place] 00 TWICE Medical DAILY WITH Branch MEALS (NEEDS FOLLOW UP VISIT FOR FURTHER REFILLS) NUVARING Yes [id number] 1{each} Insert 1 [facility] (NUVARING) 6-06 Each into ity of 0.12-0.015 00:00: vagina [place] mg/24 hr 00 once every Medic al vaginal month. Branch insert Insert vaginally and leave in place for 3 consecutiv e weeks, then remove for 1 week. atorvastati Yes [id number] 20mg Take 1 [facility] n 20 mg 6-06 tablet by ity of tablet 00:00: mouth at [place] 00 bedtime. Medical Branch empaglifloz Yes [id number] 25mg Take 1 [facility] in 6-06 tablet by ity of (JARDIANCE) 00:00: mouth [place] 25 mg Tab 00 every Medical morning. Branch escitalopra Yes [id number] 20mg Take 1 [facility] m oxalate 6-06 tablet by ity o f (LEXAPRO) 00:00: mouth [place] 20 mg 00 daily. Medical tablet Branch glyBURIDE 5 Yes [id number] TAKE 1 [facility] mg tablet 6-06 TABLET BY ity o f 00:00: MOUTH [place] 00 TWICE Medical DAILY WITH Branch MEALS (NEEDS FOLLOW UP VISIT FOR FURTHER REFILLS) NUVARING 0 Yes [id number] 1{each} Insert 1 [facility] (NUVARING) 6-06 Each into ity of 0.12-0.015 00:00: vagina [place] mg/24 hr 00 once every Medic al vaginal month. Branch insert Insert vaginally and leave in place for 3 consecutiv e weeks, then remove for 1 week. atorvastati Yes [id number] 20mg Take 1 [facility] n 20 mg 6-06 tablet by ity of tablet 00:00: mouth at [place] 00 bedtime. Medical Branch empaglifloz Yes [id number] 25mg Take 1 [facility] in 6-06 tablet by ity of (JARDIANCE) 00:00: mouth [place] 25 mg Tab 00 every Medical morning. Branch escitalopra Yes [id number] 20mg Take 1 [facility] m oxalate 6-06 tablet by ity o f (LEXAPRO) 00:00: mouth [place] 20 mg 00 daily. Medical tablet Branch glyBURIDE 5 Yes [id number] TAKE 1 [facility] mg tablet 6-06 TABLET BY ity o f 00:00: MOUTH [place] 00 TWICE Medical DAILY WITH Branch MEALS (NEEDS FOLLOW UP VISIT FOR FURTHER REFILLS) NUVARING Yes [id number] 1{each} Insert 1 [facility] (NUVARING) 6-06 Each into ity of 0.12-0.015 00:00: vagina [place] mg/24 hr 00 once every Medic al vaginal month. Branch insert Insert vaginally and leave in place for 3 consecutiv e weeks, then remove for 1 week. atorvastati Yes [id number] 20mg Take 1 [facility] n 20 mg 6-06 tablet by ity of tablet 00:00: mouth at [place] 00 bedtime. Medical Branch empaglifloz Yes [id number] 25mg Take 1 [facility] in 6-06 tablet by ity of (JARDIANCE) 00:00: mouth [place] 25 mg Tab 00 every Medical morning. Branch escitalopra Yes [id number] 20mg Take 1 [facility] m oxalate 6-06 tablet by ity o f (LEXAPRO) 00:00: mouth [place] 20 mg 00 daily. Medical tablet Branch glyBURIDE 5 Yes [id number] TAKE 1 [facility] mg tablet 6-06 TABLET BY ity o f 00:00: MOUTH [place] 00 TWICE Medical DAILY WITH Branch MEALS (NEEDS FOLLOW UP VISIT FOR FURTHER REFILLS) NUVARING 2021- Yes [id number] 1{each} Insert 1 [facility] (NUVARING) 6-06 Each into ity of 0.12-0.015 00:00: vagina [place] mg/24 hr 00 once every Medic al vaginal month. Branch insert Insert vaginally and leave in place for 3 consecutiv e weeks, then remove for 1 week. atorvastati Yes [id number] 20mg Take 1 [facility] n 20 mg 6-06 tablet by ity of tablet 00:00: mouth at [place] 00 bedtime. Medical Branch empaglifloz Yes [id number] 25mg Take 1 [facility] in 6-06 tablet by ity of (JARDIANCE) 00:00: mouth [place] 25 mg Tab 00 every Medical morning. Branch escitalopra Yes [id number] 20mg Take 1 [facility] m oxalate 6-06 tablet by ity o f (LEXAPRO) 00:00: mouth [place] 20 mg 00 daily. Medical tablet Branch glyBURIDE 5 Yes [id number] TAKE 1 [facility] mg tablet 6-06 TABLET BY ity o f 00:00: MOUTH [place] 00 TWICE Medical DAILY WITH Branch MEALS (NEEDS FOLLOW UP VISIT FOR FURTHER REFILLS) NUVARING Yes [id number] 1{each} Insert 1 [facility] (NUVARING) 6-06 Each into ity of 0.12-0.015 00:00: vagina [place] mg/24 hr 00 once every Medic al vaginal month. Branch insert Insert vaginally and leave in place for 3 consecutiv e weeks, then remove for 1 week. atorvastati Yes [id number] 20mg Take 1 [facility] n 20 mg 6-06 tablet by ity of tablet 00:00: mouth at [place] 00 bedtime. Medical Branch empaglifloz Yes [id number] 25mg Take 1 [facility] in 6-06 tablet by ity of (JARDIANCE) 00:00: mouth [place] 25 mg Tab 00 every Medical morning. Branch escitalopra Yes [id number] 20mg Take 1 [facility] m oxalate 6-06 tablet by ity o f (LEXAPRO) 00:00: mouth [place] 20 mg 00 daily. Medical tablet Branch glyBURIDE 5 Yes [id number] TAKE 1 [facility] mg tablet 6-06 TABLET BY ity o f 00:00: MOUTH [place] 00 TWICE Medical DAILY WITH Branch MEALS (NEEDS FOLLOW UP VISIT FOR FURTHER REFILLS) NUVARING Yes [id number] 1{each} Insert 1 [facility] (NUVARING) 6-06 Each into ity of 0.12-0.015 00:00: vagina [place] mg/24 hr 00 once every Medic al vaginal month. Branch insert Insert vaginally and leave in place for 3 consecutiv e weeks, then remove for 1 week. atorvastati Yes [id number] 20mg Take 1 [facility] n 20 mg 6-06 tablet by ity of tablet 00:00: mouth at [place] 00 bedtime. Medical Branch empaglifloz Yes [id number] 25mg Take 1 [facility] in 6-06 tablet by ity of (JARDIANCE) 00:00: mouth [place] 25 mg Tab 00 every Medical morning. Branch escitalopra Yes [id number] 20mg Take 1 [facility] m oxalate 6-06 tablet by ity o f (LEXAPRO) 00:00: mouth [place] 20 mg 00 daily. Medical tablet Branch glyBURIDE 5 Yes [id number] TAKE 1 [facility] mg tablet 6-06 TABLET BY ity o f 00:00: MOUTH [place] 00 TWICE Medical DAILY WITH Branch MEALS (NEEDS FOLLOW UP VISIT FOR FURTHER REFILLS) NUVARING Yes [id number] 1{each} Insert 1 [facility] (NUVARING) 6-06 Each into ity of 0.12-0.015 00:00: vagina [place] mg/24 hr 00 once every Medic al vaginal month. Branch insert Insert vaginally and leave in place for 3 consecutiv e weeks, then remove for 1 week. atorvastati Yes [id number] 20mg Take 1 [facility] n 20 mg 6-06 tablet by ity of tablet 00:00: mouth at [place] 00 bedtime. Medical Branch empaglifloz Yes [id number] 25mg Take 1 [facility] in 6-06 tablet by ity of ([place]ARDIANCE) 00:00: mouth [place] 25 mg Tab 00 every Medical morning. Branch escitalopra Yes [id number] 20mg Take 1 [facility] m oxalate 6-06 tablet by ity o f (LEXAPRO) 00:00: mouth [place] 20 mg 00 daily. Medical tablet Branch glyBURIDE 5 Yes [id number] TAKE 1 [facility] mg tablet 6-06 TABLET BY ity o f 00:00: MOUTH [place] 00 TWICE Medical DAILY WITH Branch MEALS (NEEDS FOLLOW UP VISIT FOR FURTHER REFILLS) NUVARING Yes [id number] 1{each} Insert 1 [facility] (NUVARING) 6-06 Each into ity of 0.12-0.015 00:00: vagina [place] mg/24 hr 00 once every Medic al vaginal month. Branch insert Insert vaginally and leave in place for 3 consecutiv e weeks, then remove for 1 week. atorvastati Yes [id number] 20mg Take 1 [facility] n 20 mg 6-06 tablet by ity of tablet 00:00: mouth at [place] 00 bedtime. Medical Branch empaglifloz Yes [id number] 25mg Take 1 [facility] in 6-06 tablet by ity of ([place]) 00:00: mouth [place] 25 mg Tab 00 every Medical morning. Branch escitalopra Yes [id number] 20mg Take 1 [facility] m oxalate 6-06 tablet by ity o f (LEXAPRO) 00:00: mouth [place] 20 mg 00 daily. Medical tablet Branch glyBURIDE 5 Yes [id number] TAKE 1 [facility] mg tablet 6-06 TABLET BY ity o f 00:00: MOUTH [place] 00 TWICE Medical DAILY WITH Branch MEALS (NEEDS FOLLOW UP VISIT FOR FURTHER REFILLS) NUVARING Yes [id number] 1{each} Insert 1 [facility] (NUVARING) 6-06 Each into ity of 0.12-0.015 00:00: vagina [place] mg/24 hr 00 once every Medic al vaginal month. Branch insert Insert vaginally and leave in place for 3 consecutiv e weeks, then remove for 1 week. atorvastati Yes [id number] 20mg Take 1 [facility] n 20 mg 6-06 tablet by [facility] of tablet 00:00: mouth at [place] 00 bedtime. Medical Branch empaglifloz Yes [id number] 25mg Take 1 [facility] in 6-06 tablet by [facility] of ([facility]) 00:00: mouth [place] 25 mg Tab 00 every Medical morning. Branch escitalopra Yes [id number] 20mg Take 1 [facility] m oxalate 6-06 tablet by ity o f (LEXAPRO) 00:00: mouth [place] 20 mg 00 daily. Medical tablet Branch glyBURIDE 5 Yes [id number] TAKE 1 [facility] mg tablet 6-06 TABLET BY ity o f 00:00: MOUTH [place] 00 TWICE Medical DAILY WITH Branch MEALS (NEEDS FOLLOW UP VISIT FOR FURTHER REFILLS) NUVARING Yes [id number] 1{each} Insert 1 [facility] (NUVARING) 6-06 Each into ity of 0.12-0.015 00:00: vagina [place] mg/24 hr 00 once every Medic al vaginal month. Branch insert Insert vaginally and leave in place for 3 consecutiv e weeks, then remove for 1 week. atorvastati Yes [id number] 20mg Take 1 [facility] n 20 mg 6-06 tablet by [facility] of tablet 00:00: mouth at [place] 00 bedtime. Medical Branch empaglifloz 2021-0 Yes [id number] 25mg Take 1 [facility] in 6-06 tablet by [facility] of ([place]) 00:00: mouth [place] 25 mg Tab 00 every Medical morning. Branch escitalopra 0 Yes [id number] 20mg Take 1 [facility] m oxalate 6-06 tablet by ity o f (LEXAPRO) 00:00: mouth [place] 20 mg 00 daily. Medical tablet Branch glyBURIDE 5 2021- Yes [id number] TAKE 1 [facility] mg tablet 6-06 TABLET BY ity o f 00:00: MOUTH [place] 00 TWICE Medical DAILY WITH Branch MEALS (NEEDS FOLLOW UP VISIT FOR FURTHER REFILLS) NUVARING Yes [id number] 1{each} Insert 1 [facility] (NUVARING) 6-06 Each into ity of 0.12-0.015 00:00: vagina [place] mg/24 hr 00 once every Medic al vaginal month. Branch insert Insert vaginally and leave in place for 3 consecutiv e weeks, then remove for 1 week. atorvastati Yes [id number] 20mg Take 1 [facility] n 20 mg 6-06 tablet by [facility] of tablet 00:00: mouth at [place] 00 bedtime. Medical Branch empaglifloz Yes [id number] 25mg Take 1 [facility] in 6-06 tablet by [facility] of ([place]) 00:00: mouth [place] 25 mg Tab 00 every Medical morning. Branch escitalopra Yes [id number] 20mg Take 1 [facility] m oxalate 6-06 tablet by ity o f (LEXAPRO) 00:00: mouth [place] 20 mg 00 daily. Medical tablet Branch glyBURIDE 5 Yes [id number] TAKE 1 [facility] mg tablet 6-06 TABLET BY ity o f 00:00: MOUTH [place] 00 TWICE Medical DAILY WITH Branch MEALS (NEEDS FOLLOW UP VISIT FOR FURTHER REFILLS) NUVARING 2021- Yes [id number] 1{each} Insert 1 [facility] (NUVARING) 6-06 Each into ity of 0.12-0.015 00:00: vagina [place] mg/24 hr 00 once every Medic al vaginal month. Branch insert Insert vaginally and leave in place for 3 consecutiv e weeks, then remove for 1 week. atorvastati Yes [id number] 20mg Take 1 [facility] n 20 mg 6-06 tablet by [facility] of tablet 00:00: mouth at [place] 00 bedtime. Medical Branch empaglifloz Yes [id number] 25mg Take 1 [facility] in 6-06 tablet by [facility] of ([place]) 00:00: mouth [place] 25 mg Tab 00 every Medical morning. Branch escitalopra Yes [id number] 20mg Take 1 [facility] m oxalate 6-06 tablet by ity o f (LEXAPRO) 00:00: mouth [place] 20 mg 00 daily. Medical tablet Branch glyBURIDE 5 Yes [id number] TAKE 1 [facility] mg tablet 6-06 TABLET BY ity o f 00:00: MOUTH [place] 00 TWICE Medical DAILY WITH Branch MEALS (NEEDS FOLLOW UP VISIT FOR FURTHER REFILLS) NUVARING Yes [id number] 1{each} Insert 1 [facility] (NUVARING) 6-06 Each into ity of 0.12-0.015 00:00: vagina [place] mg/24 hr 00 once every Medic al vaginal month. Branch insert Insert vaginally and leave in place for 3 consecutiv e weeks, then remove for 1 week. atorvastati Yes [id number] 20mg Take 1 [facility] n 20 mg 6-06 tablet by it[facility] of tablet 00:00: mouth at [place] 00 bedtime. Medical Branch empaglifloz Yes [id number] 25mg Take 1 [facility] in 6-06 tablet by [facility] of ([place]) 00:00: mouth [place] 25 mg Tab 00 every Medical morning. Branch escitalopra Yes [id number] 20mg Take 1 [facility] m oxalate 6-06 tablet by ity o f (LEXAPRO) 00:00: mouth [place] 20 mg 00 daily. Medical tablet Branch glyBURIDE 5 Yes [id number] TAKE 1 [facility] mg tablet 6-06 TABLET BY ity o f 00:00: MOUTH [place] 00 TWICE Medical DAILY WITH Branch MEALS (NEEDS FOLLOW UP VISIT FOR FURTHER REFILLS) NUVARING 2021- Yes [id number] 1{each} Insert 1 [facility] (NUVARING) 6-06 Each into ity of 0.12-0.015 00:00: vagina [place] mg/24 hr 00 once every Medic al vaginal month. Branch insert Insert vaginally and leave in place for 3 consecutiv e weeks, then remove for 1 week. atorvastati Yes [id number] 20mg Take 1 [facility] n 20 mg 6-06 tablet by it[facility] of tablet 00:00: mouth at [place] 00 bedtime. Medical Branch empaglifloz Yes [id number] 25mg Take 1 [facility] in 6-06 tablet by [facility] of ([place]) 00:00: mouth [place] 25 mg Tab 00 every Medical morning. Branch escitalopra Yes [id number] 20mg Take 1 [facility] m oxalate 6-06 tablet by ity o f (LEXAPRO) 00:00: mouth [place] 20 mg 00 daily. Medical tablet Branch glyBURIDE 5 Yes [id number] TAKE 1 [facility] mg tablet 6-06 TABLET BY ity o f 00:00: MOUTH [place] 00 TWICE Medical DAILY WITH Branch MEALS (NEEDS FOLLOW UP VISIT FOR FURTHER REFILLS) NUVARING Yes [id number] 1{each} Insert 1 [facility] (NUVARING) 6-06 Each into ity of 0.12-0.015 00:00: vagina [place] mg/24 hr 00 once every Medic al vaginal month. Branch insert Insert vaginally and leave in place for 3 consecutiv e weeks, then remove for 1 week. atorvastati Yes [id number] 20mg Take 1 [facility] n 20 mg 6-06 tablet by ity of tablet 00:00: mouth at [place] 00 bedtime. Medical Branch empaglifloz Yes [id number] 25mg Take 1 [facility] in 6-06 tablet by [facility] of ([place]) 00:00: mouth [place] 25 mg Tab 00 every Medical morning. Branch escitalopra Yes [id number] 20mg Take 1 [facility] m oxalate 6-06 tablet by ity o f (LEXAPRO) 00:00: mouth [place] 20 mg 00 daily. Medical tablet Branch glyBURIDE 5 Yes [id number] TAKE 1 [facility] mg tablet 6-06 TABLET BY ity o f 00:00: MOUTH [place] 00 TWICE Medical DAILY WITH Branch MEALS (NEEDS FOLLOW UP VISIT FOR FURTHER REFILLS) NUVARING Yes [id number] 1{each} Insert 1 [facility] (NUVARING) 6-06 Each into ity of 0.12-0.015 00:00: vagina [place] mg/24 hr 00 once every Medic al vaginal month. Branch insert Insert vaginally and leave in place for 3 consecutiv e weeks, then remove for 1 week. atorvastati Yes [id number] 20mg Take 1 [facility] n 20 mg 6-06 tablet by ity of tablet 00:00: mouth at [place] 00 bedtime. Medical Branch empaglifloz Yes [id number] 25mg Take 1 [facility] in 6-06 tablet by [facility] of ([place]) 00:00: mouth [place] 25 mg Tab 00 every Medical morning. Branch escitalopra Yes [id number] 20mg Take 1 [facility] m oxalate 6-06 tablet by ity o f (LEXAPRO) 00:00: mouth [place] 20 mg 00 daily. Medical tablet Branch glyBURIDE 5 Yes [id number] TAKE 1 [facility] mg tablet 6-06 TABLET BY ity o f 00:00: MOUTH [place] 00 TWICE Medical DAILY WITH Branch MEALS (NEEDS FOLLOW UP VISIT FOR FURTHER REFILLS) NUVARING 0 Yes [id number] 1{each} Insert 1 [facility] (NUVARING) 6-06 Each into ity of 0.12-0.015 00:00: vagina [place] mg/24 hr 00 once every Medic al vaginal month. Branch insert Insert vaginally and leave in place for 3 consecutiv e weeks, then remove for 1 week. atorvastati Yes [id number] 20mg Take 1 [facility] n 20 mg 6-06 tablet by ity of tablet 00:00: mouth at [place] 00 bedtime. Medical Branch empaglifloz Yes [id number] 25mg Take 1 [facility] in 6-06 tablet by [facility] of ([place]) 00:00: mouth [place] 25 mg Tab 00 every Medical morning. Branch escitalopra 2021- Yes [id number] 20mg Take 1 [facility] m oxalate 6-06 tablet by ity o f (LEXAPRO) 00:00: mouth [place] 20 mg 00 daily. Medical tablet Branch glyBURIDE 5 2021-0 Yes [id number] TAKE 1 [facility] mg tablet 6-06 TABLET BY ity o f 00:00: MOUTH [place] 00 TWICE Medical DAILY WITH Branch MEALS (NEEDS FOLLOW UP VISIT FOR FURTHER REFILLS) NUVARING Yes [id number] 1{each} Insert 1 [facility] (NUVARING) 6-06 Each into ity of 0.12-0.015 00:00: vagina [place] mg/24 hr 00 once every Medic al vaginal month. Branch insert Insert vaginally and leave in place for 3 consecutiv e weeks, then remove for 1 week. atorvastati Yes [id number] 20mg Take 1 [facility] n 20 mg 6-06 tablet by ity of tablet 00:00: mouth at [place] 00 bedtime. Medical Branch empaglifloz Yes [id number] 25mg Take 1 [facility] in 6-06 tablet by [facility] of ([place]) 00:00: mouth [place] 25 mg Tab 00 every Medical morning. Branch escitalopra Yes [id number] 20mg Take 1 [facility] m oxalate 6-06 tablet by ity o f (LEXAPRO) 00:00: mouth [place] 20 mg 00 daily. Medical tablet Branch glyBURIDE 5 Yes [id number] TAKE 1 [facility] mg tablet 6-06 TABLET BY ity o f 00:00: MOUTH [place] 00 TWICE Medical DAILY WITH Branch MEALS (NEEDS FOLLOW UP VISIT FOR FURTHER REFILLS) NUVARING Yes [id number] 1{each} Insert 1 [facility] (NUVARING) 6-06 Each into ity of 0.12-0.015 00:00: vagina [place] mg/24 hr 00 once every Medic al vaginal month. Branch insert Insert vaginally and leave in place for 3 consecutiv e weeks, then remove for 1 week. atorvastati Yes [id number] 20mg Take 1 [facility] n 20 mg 6-06 tablet by ity of tablet 00:00: mouth at [place] 00 bedtime. Medical Branch empaglifloz Yes [id number] 25mg Take 1 [facility] in 6-06 tablet by [facility] of ([place]) 00:00: mouth [place] 25 mg Tab 00 every Medical morning. Branch escitalopra Yes [id number] 20mg Take 1 [facility] m oxalate 6-06 tablet by ity o f (LEXAPRO) 00:00: mouth [place] 20 mg 00 daily. Medical tablet Branch glyBURIDE 5 Yes [id number] TAKE 1 [facility] mg tablet 6-06 TABLET BY ity o f 00:00: MOUTH [place] 00 TWICE Medical DAILY WITH Branch MEALS (NEEDS FOLLOW UP VISIT FOR FURTHER REFILLS) NUVARING Yes [id number] 1{each} Insert 1 [facility] (NUVARING) 6-06 Each into ity of 0.12-0.015 00:00: vagina [place] mg/24 hr 00 once every Medic al vaginal month. Branch insert Insert vaginally and leave in place for 3 consecutiv e weeks, then remove for 1 week. atorvastati Yes [id number] 20mg Take 1 [facility] n 20 mg 6-06 tablet by ity of tablet 00:00: mouth at [place] 00 bedtime. Medical Branch empaglifloz Yes [id number] 25mg Take 1 [facility] in 6-06 tablet by [facility] of ([place]) 00:00: mouth [place] 25 mg Tab 00 every Medical morning. Branch escitalopra Yes [id number] 20mg Take 1 [facility] m oxalate 6-06 tablet by ity o f (LEXAPRO) 00:00: mouth [place] 20 mg 00 daily. Medical tablet Branch glyBURIDE 5 Yes [id number] TAKE 1 [facility] mg tablet 6-06 TABLET BY ity o f 00:00: MOUTH [place] 00 TWICE Medical DAILY WITH Branch MEALS (NEEDS FOLLOW UP VISIT FOR FURTHER REFILLS) NUVARING Yes [id number] 1{each} Insert 1 [facility] (NUVARING) 6-06 Each into ity of 0.12-0.015 00:00: vagina [place] mg/24 hr 00 once every Medic al vaginal month. Branch insert Insert vaginally and leave in place for 3 consecutiv e weeks, then remove for 1 week. atorvastati Yes [id number] 20mg Take 1 [facility] n 20 mg 6-06 tablet by ity of tablet 00:00: mouth at [place] 00 bedtime. Medical Branch empaglifloz Yes [id number] 25mg Take 1 [facility] in 6-06 tablet by [facility] of ([place]) 00:00: mouth [place] 25 mg Tab 00 every Medical morning. Branch escitalopra Yes [id number] 20mg Take 1 [facility] m oxalate 6-06 tablet by ity o f (LEXAPRO) 00:00: mouth [place] 20 mg 00 daily. Medical tablet Branch glyBURIDE 5 Yes [id number] TAKE 1 [facility] mg tablet 6-06 TABLET BY ity o f 00:00: MOUTH [place] 00 TWICE Medical DAILY WITH Branch MEALS (NEEDS FOLLOW UP VISIT FOR FURTHER REFILLS) atorvastati 2021-0 Yes [id number] 20mg Take 1 [facility] n 20 mg 6-06 tablet by ity of tablet 00:00: mouth at [place] 00 bedtime. Medical Branch empaglifloz Yes [id number] 25mg Take 1 [facility] in 6-06 tablet by [facility] of ([place]) 00:00: mouth [place] 25 mg Tab 00 every Medical morning. Branch escitalopra Yes [id number] 20mg Take 1 [facility] m oxalate 6-06 tablet by ity o f (LEXAPRO) 00:00: mouth [place] 20 mg 00 daily. Medical tablet Branch glyBURIDE 5 Yes [id number] TAKE 1 [facility] mg tablet 6-06 TABLET BY ity o f 00:00: MOUTH [place] 00 TWICE Medical DAILY WITH Branch MEALS (NEEDS FOLLOW UP VISIT FOR FURTHER REFILLS) atorvastati 2021-0 Yes [id number] 20mg Take 1 [facility] n 20 mg 6-06 tablet by ity of tablet 00:00: mouth at [place] 00 bedtime. Medical Branch empaglifloz Yes [id number] 25mg Take 1 [facility] in 6-06 tablet by [facility] of ([place]) 00:00: mouth [place] 25 mg Tab 00 every Medical morning. Branch escitalopra Yes [id number] 20mg Take 1 [facility] m oxalate 6-06 tablet by ity o f (LEXAPRO) 00:00: mouth [place] 20 mg 00 daily. Medical tablet Branch glyBURIDE 5 Yes [id number] TAKE 1 [facility] mg tablet 6-06 TABLET BY ity o f 00:00: MOUTH [place] 00 TWICE Medical DAILY WITH Branch MEALS (NEEDS FOLLOW UP VISIT FOR FURTHER REFILLS) atorvastati 2021-0 Yes [id number] 20mg Take 1 [facility] n 20 mg 6-06 tablet by ity of tablet 00:00: mouth at [place] 00 bedtime. Medical Branch empaglifloz 2021- Yes [id number] 25mg Take 1 [facility] in 6-06 tablet by [facility] of ([place]) 00:00: mouth [place] 25 mg Tab 00 every Medical morning. Branch escitalopra Yes [id number] 20mg Take 1 [facility] m oxalate 6-06 tablet by ity o f (LEXAPRO) 00:00: mouth [place] 20 mg 00 daily. Medical tablet Branch glyBURIDE 5 Yes [id number] TAKE 1 [facility] mg tablet 6-06 TABLET BY ity o f 00:00: MOUTH [place] 00 TWICE Medical DAILY WITH Branch MEALS (NEEDS FOLLOW UP VISIT FOR FURTHER REFILLS) atorvastati Yes [id number] 20mg Take 1 [facility] n 20 mg 6-06 tablet by ity of tablet 00:00: mouth at [place] 00 bedtime. Medical Branch empaglifloz Yes [id number] 25mg Take 1 [facility] in 6-06 tablet by [facility] of ([place]) 00:00: mouth [place] 25 mg Tab 00 every Medical morning. Branch escitalopra Yes [id number] 20mg Take 1 [facility] m oxalate 6-06 tablet by ity o f (LEXAPRO) 00:00: mouth [place] 20 mg 00 daily. Medical tablet Branch glyBURIDE 5 Yes [id number] TAKE 1 [facility] mg tablet 6-06 TABLET BY ity o f 00:00: MOUTH [place] 00 TWICE Medical DAILY WITH Branch MEALS (NEEDS FOLLOW UP VISIT FOR FURTHER REFILLS) atorvastati 2021-0 Yes [id number] 20mg Take 1 [facility] n 20 mg 6-06 tablet by ity of tablet 00:00: mouth at [place] 00 bedtime. Medical Branch empaglifloz Yes [id number] 25mg Take 1 [facility] in 6-06 tablet by [facility] of ([place]) 00:00: mouth [place] 25 mg Tab 00 every Medical morning. Branch escitalopra Yes [id number] 20mg Take 1 [facility] m oxalate 6-06 tablet by ity o f (LEXAPRO) 00:00: mouth [place] 20 mg 00 daily. Medical tablet Branch glyBURIDE 5 2021- Yes [id number] TAKE 1 [facility] mg tablet 6-06 TABLET BY ity o f 00:00: MOUTH [place] 00 TWICE Medical DAILY WITH Branch MEALS (NEEDS FOLLOW UP VISIT FOR FURTHER REFILLS) atorvastati Yes [id number] 20mg Take 1 [facility] n 20 mg 6-06 tablet by ity of tablet 00:00: mouth at [place] 00 bedtime. Medical Branch empaglifloz Yes [id number] 25mg Take 1 [facility] in 6-06 tablet by [facility] of ([place]) 00:00: mouth [place] 25 mg Tab 00 every Medical morning. Branch escitalopra Yes [id number] 20mg Take 1 [facility] m oxalate 6-06 tablet by ity o f (LEXAPRO) 00:00: mouth [place] 20 mg 00 daily. Medical tablet Branch glyBURIDE 5 Yes [id number] TAKE 1 [facility] mg tablet 6-06 TABLET BY ity o f 00:00: MOUTH [place] 00 TWICE Medical DAILY WITH Branch MEALS (NEEDS FOLLOW UP VISIT FOR FURTHER REFILLS) atorvastati Yes [id number] 20mg Take 1 [facility] n 20 mg 6-06 tablet by ity of tablet 00:00: mouth at [place] 00 bedtime. Medical Branch empaglifloz Yes [id number] 25mg Take 1 [facility] in 6-06 tablet by [facility] of ([place]) 00:00: mouth [place] 25 mg Tab 00 every Medical morning. Branch escitalopra Yes [id number] 20mg Take 1 [facility] m oxalate 6-06 tablet by ity o f (LEXAPRO) 00:00: mouth [place] 20 mg 00 daily. Medical tablet Branch glyBURIDE 5 Yes [id number] TAKE 1 [facility] mg tablet 6-06 TABLET BY ity o f 00:00: MOUTH [place] 00 TWICE Medical DAILY WITH Branch MEALS (NEEDS FOLLOW UP VISIT FOR FURTHER REFILLS) atorvastati Yes [id number] 20mg Take 1 [facility] n 20 mg 6-06 tablet by ity of tablet 00:00: mouth at [place] 00 bedtime. Medical Branch empaglifloz Yes [id number] 25mg Take 1 [facility] in 6-06 tablet by [facility] of ([place]) 00:00: mouth [place] 25 mg Tab 00 every Medical morning. Branch escitalopra Yes [id number] 20mg Take 1 [facility] m oxalate 6-06 tablet by ity o f (LEXAPRO) 00:00: mouth [place] 20 mg 00 daily. Medical tablet Branch glyBURIDE 5 Yes [id number] TAKE 1 [facility] mg tablet 6-06 TABLET BY ity o f 00:00: MOUTH [place] 00 TWICE Medical DAILY WITH Branch MEALS (NEEDS FOLLOW UP VISIT FOR FURTHER REFILLS) atorvastati Yes [id number] 20mg Take 1 [facility] n 20 mg 6-06 tablet by ity of tablet 00:00: mouth at [place] 00 bedtime. Medical Branch empaglifloz Yes [id number] 25mg Take 1 [facility] in 6-06 tablet by [facility] of ([place]) 00:00: mouth [place] 25 mg Tab 00 every Medical morning. Branch escitalopra Yes [id number] 20mg Take 1 [facility] m oxalate 6-06 tablet by ity o f (LEXAPRO) 00:00: mouth [place] 20 mg 00 daily. Medical tablet Branch glyBURIDE 5 Yes [id number] TAKE 1 [facility] mg tablet 6-06 TABLET BY ity o f 00:00: MOUTH [place] 00 TWICE Medical DAILY WITH Branch MEALS (NEEDS FOLLOW UP VISIT FOR FURTHER REFILLS) atorvastati Yes [id number] 20mg Take 1 [facility] n 20 mg 6-06 tablet by ity of tablet 00:00: mouth at [place] 00 bedtime. Medical Branch empaglifloz Yes [id number] 25mg Take 1 [facility] in 6-06 tablet by [facility] of ([place]) 00:00: mouth [place] 25 mg Tab 00 every Medical morning. Branch escitalopra Yes [id number] 20mg Take 1 [facility] m oxalate 6-06 tablet by ity o f (LEXAPRO) 00:00: mouth [place] 20 mg 00 daily. Medical tablet Branch glyBURIDE 5 Yes [id number] TAKE 1 [facility] mg tablet 6-06 TABLET BY ity o f 00:00: MOUTH [place] 00 TWICE Medical DAILY WITH Branch MEALS (NEEDS FOLLOW UP VISIT FOR FURTHER REFILLS) atorvastati 2021- Yes [id number] 20mg Take 1 [facility] n 20 mg 6-06 tablet by it[facility] of tablet 00:00: mouth at [place] 00 bedtime. Medical Branch empaglifloz Yes [id number] 25mg Take 1 [facility] in 6-06 tablet by [facility] of ([place]) 00:00: mouth [place] 25 mg Tab 00 every Medical morning. Branch escitalopra Yes [id number] 20mg Take 1 [facility] m oxalate 6-06 tablet by ity o f (LEXAPRO) 00:00: mouth [place] 20 mg 00 daily. Medical tablet Branch glyBURIDE 5 2021-0 Yes [id number] TAKE 1 [facility] mg tablet 6-06 TABLET BY ity o f 00:00: MOUTH [place] 00 TWICE Medical DAILY WITH Branch MEALS (NEEDS FOLLOW UP VISIT FOR FURTHER REFILLS) atorvastati Yes [id number] 20mg Take 1 [facility] n 20 mg 6-06 tablet by ity of tablet 00:00: mouth at [place] 00 bedtime. Medical Branch empaglifloz Yes [id number] 25mg Take 1 [facility] in 6-06 tablet by [facility] of ([place]) 00:00: mouth [place] 25 mg Tab 00 every Medical morning. Branch escitalopra Yes [id number] 20mg Take 1 [facility] m oxalate 6-06 tablet by ity o f (LEXAPRO) 00:00: mouth [place] 20 mg 00 daily. Medical tablet Branch glyBURIDE 5 Yes [id number] TAKE 1 [facility] mg tablet 6-06 TABLET BY ity o f 00:00: MOUTH [place] 00 TWICE Medical DAILY WITH Branch MEALS (NEEDS FOLLOW UP VISIT FOR FURTHER REFILLS) atorvastati 2021-0 Yes [id number] 20mg Take 1 [facility] n 20 mg 6-06 tablet by ity of tablet 00:00: mouth at [place] 00 bedtime. Medical Branch empaglifloz 0 Yes [id number] 25mg Take 1 [facility] in 6-06 tablet by [facility] of ([place]) 00:00: mouth [place] 25 mg Tab 00 every Medical morning. Branch escitalopra 2021-0 Yes [id number] 20mg Take 1 [facility] m oxalate 6-06 tablet by ity o f (LEXAPRO) 00:00: mouth [place] 20 mg 00 daily. Medical tablet Branch glyBURIDE 5 2021-0 Yes [id number] TAKE 1 [facility] mg tablet 6-06 TABLET BY ity o f 00:00: MOUTH [place] 00 TWICE Medical DAILY WITH Branch MEALS (NEEDS FOLLOW UP VISIT FOR FURTHER REFILLS) atorvastati Yes [id number] 20mg Take 1 [facility] n 20 mg 6-06 tablet by ity of tablet 00:00: mouth at [place] 00 bedtime. Medical Branch empaglifloz Yes [id number] 25mg Take 1 [facility] in 6-06 tablet by [facility] of ([place]) 00:00: mouth [place] 25 mg Tab 00 every Medical morning. Branch escitalopra Yes [id number] 20mg Take 1 [facility] m oxalate 6-06 tablet by ity o f (LEXAPRO) 00:00: mouth [place] 20 mg 00 daily. Medical tablet Branch glyBURIDE 5 Yes [id number] TAKE 1 [facility] mg tablet 6-06 TABLET BY ity o f 00:00: MOUTH [place] 00 TWICE Medical DAILY WITH Branch MEALS (NEEDS FOLLOW UP VISIT FOR FURTHER REFILLS) atorvastati Yes [id number] 20mg Take 1 [facility] n 20 mg 6-06 tablet by ity of tablet 00:00: mouth at [place] 00 bedtime. Medical Branch empaglifloz Yes [id number] 25mg Take 1 [facility] in 6-06 tablet by [facility] of ([place]) 00:00: mouth [place] 25 mg Tab 00 every Medical morning. Branch escitalopra Yes [id number] 20mg Take 1 [facility] m oxalate 6-06 tablet by ity o f (LEXAPRO) 00:00: mouth [place] 20 mg 00 daily. Medical tablet Branch glyBURIDE 5 Yes [id number] TAKE 1 [facility] mg tablet 6-06 TABLET BY ity o f 00:00: MOUTH [place] 00 TWICE Medical DAILY WITH Branch MEALS (NEEDS FOLLOW UP VISIT FOR FURTHER REFILLS) atorvastati 2021-0 Yes [id number] 20mg Take 1 [facility] n 20 mg 6-06 tablet by [facility]y of tablet 00:00: mouth at [place] 00 bedtime. Medical Branch empaglifloz Yes [id number] 25mg Take 1 [facility] in 6-06 tablet by [facility] of ([place]) 00:00: mouth [place] 25 mg Tab 00 every Medical morning. Branch escitalopra Yes [id number] 20mg Take 1 [facility] m oxalate 6-06 tablet by ity o f (LEXAPRO) 00:00: mouth [place] 20 mg 00 daily. Medical tablet Branch glyBURIDE 5 Yes [id number] TAKE 1 [facility] mg tablet 6-06 TABLET BY ity o f 00:00: MOUTH [place] 00 TWICE Medical DAILY WITH Branch MEALS (NEEDS FOLLOW UP VISIT FOR FURTHER REFILLS) atorvastati Yes [id number] 20mg Take 1 [facility] n 20 mg 6-06 tablet by [facility]y of tablet 00:00: mouth at [place] 00 bedtime. Medical Branch empaglifloz Yes [id number] 25mg Take 1 [facility] in 6-06 tablet by [facility] of ([place]) 00:00: mouth [place] 25 mg Tab 00 every Medical morning. Branch escitalopra Yes [id number] 20mg Take 1 [facility] m oxalate 6-06 tablet by ity o f (LEXAPRO) 00:00: mouth [place] 20 mg 00 daily. Medical tablet Branch glyBURIDE 5 Yes [id number] TAKE 1 [facility] mg tablet 6-06 TABLET BY ity o f 00:00: MOUTH [place] 00 TWICE Medical DAILY WITH Branch MEALS (NEEDS FOLLOW UP VISIT FOR FURTHER REFILLS) atorvastati Yes [id number] 20mg Take 1 [facility] n 20 mg 6-06 tablet by [facility] of tablet 00:00: mouth at [place] 00 bedtime. Medical Branch escitalopra Yes [id number] 20mg Take 1 [facility] m oxalate 6-06 tablet by ity o f (LEXAPRO) 00:00: mouth [place] 20 mg 00 daily. Medical tablet Branch glyBURIDE 5 Yes [id number] TAKE 1 [facility] mg tablet 6-06 TABLET BY ity o f 00:00: MOUTH [place] 00 TWICE Medical DAILY WITH Branch MEALS (NEEDS FOLLOW UP VISIT FOR FURTHER REFILLS) atorvastati Yes [id number] 20mg Take 1 [facility] n 20 mg 6-06 tablet by [facility] of tablet 00:00: mouth at [place] 00 bedtime. Medical Branch escitalopra Yes [id number] 20mg Take 1 [facility] m oxalate 6-06 tablet by ity o f (LEXAPRO) 00:00: mouth [place] 20 mg 00 daily. Medical tablet Branch glyBURIDE 5 Yes [id number] TAKE 1 [facility] mg tablet 6-06 TABLET BY ity o f 00:00: MOUTH [place] 00 TWICE Medical DAILY WITH Branch MEALS (NEEDS FOLLOW UP VISIT FOR FURTHER REFILLS) atorvastati Yes [id number] 20mg Take 1 [facility] n 20 mg 6-06 tablet by [facility] of tablet 00:00: mouth at [place] 00 bedtime. Medical Branch escitalopra Yes [id number] 20mg Take 1 [facility] m oxalate 6-06 tablet by ity o f (LEXAPRO) 00:00: mouth [place] 20 mg 00 daily. Medical tablet Branch glyBURIDE 5 Yes [id number] TAKE 1 [facility] mg tablet 6-06 TABLET BY ity o f 00:00: MOUTH [place] 00 TWICE Medical DAILY WITH Branch MEALS (NEEDS FOLLOW UP VISIT FOR FURTHER REFILLS) atorvastati Yes [id number] 20mg Take 1 [facility] n 20 mg 6-06 tablet by [facility] of tablet 00:00: mouth at [place] 00 bedtime. Medical Branch escitalopra Yes [id number] 20mg Take 1 [facility] m oxalate 6-06 tablet by ity o f (LEXAPRO) 00:00: mouth [place] 20 mg 00 daily. Medical tablet Branch glyBURIDE 5 Yes [id number] TAKE 1 [facility] mg tablet 6-06 TABLET BY ity o f 00:00: MOUTH [place] 00 TWICE Medical DAILY WITH Branch MEALS (NEEDS FOLLOW UP VISIT FOR FURTHER REFILLS) atorvastati Yes [id number] 20mg Take 1 [facility] n 20 mg 6-06 tablet by [facility] of tablet 00:00: mouth at [place] 00 bedtime. Medical Branch escitalopra Yes [id number] 20mg Take 1 [facility] m oxalate 6-06 tablet by ity o f (LEXAPRO) 00:00: mouth [place] 20 mg 00 daily. Medical tablet Branch glyBURIDE 5 Yes [id number] TAKE 1 [facility] mg tablet 6-06 TABLET BY ity o f 00:00: MOUTH [place] 00 TWICE Medical DAILY WITH Branch MEALS (NEEDS FOLLOW UP VISIT FOR FURTHER REFILLS) atorvastati Yes [id number] 20mg Take 1 [facility] n 20 mg 6-06 tablet by [facility] of tablet 00:00: mouth at [place] 00 bedtime. Medical Branch escitalopra Yes [id number] 20mg Take 1 [facility] m oxalate 6-06 tablet by ity o f (LEXAPRO) 00:00: mouth [place] 20 mg 00 daily. Medical tablet Branch glyBURIDE 5 Yes [id number] TAKE 1 [facility] mg tablet 6-06 TABLET BY ity o f 00:00: MOUTH [place] 00 TWICE Medical DAILY WITH Branch MEALS (NEEDS FOLLOW UP VISIT FOR FURTHER REFILLS) atorvastati Yes [id number] 20mg Take 1 [facility] n 20 mg 6-06 tablet by ity of tablet 00:00: mouth at [place] 00 bedtime. Medical Branch escitalopra Yes [id number] 20mg Take 1 [facility] m oxalate 6-06 tablet by ity o f (LEXAPRO) 00:00: mouth [place] 20 mg 00 daily. Medical tablet Branch glyBURIDE 5 Yes [id number] TAKE 1 [facility] mg tablet 6-06 TABLET BY ity o f 00:00: MOUTH [place] 00 TWICE Medical DAILY WITH Branch MEALS (NEEDS FOLLOW UP VISIT FOR FURTHER REFILLS) atorvastati Yes [id number] 20mg Take 1 [facility] n 20 mg 6-06 tablet by ity of tablet 00:00: mouth at [place] 00 bedtime. Medical Branch escitalopra Yes [id number] 20mg Take 1 [facility] m oxalate 6-06 tablet by ity o f (LEXAPRO) 00:00: mouth [place] 20 mg 00 daily. Medical tablet Branch glyBURIDE 5 Yes [id number] TAKE 1 [facility] mg tablet 6-06 TABLET BY ity o f 00:00: MOUTH [place] 00 TWICE Medical DAILY WITH Branch MEALS (NEEDS FOLLOW UP VISIT FOR FURTHER REFILLS) atorvastati Yes [id number] 20mg Take 1 [facility] n 20 mg 6-06 tablet by ity of tablet 00:00: mouth at [place] 00 bedtime. Medical Branch escitalopra Yes [id number] 20mg Take 1 [facility] m oxalate 6-06 tablet by ity o f (LEXAPRO) 00:00: mouth [place] 20 mg 00 daily. Medical tablet Branch glyBURIDE 5 Yes [id number] TAKE 1 [facility] mg tablet 6-06 TABLET BY ity o f 00:00: MOUTH [place] 00 TWICE Medical DAILY WITH Branch MEALS (NEEDS FOLLOW UP VISIT FOR FURTHER REFILLS) atorvastati Yes [id number] 20mg Take 1 [facility] n 20 mg 6-06 tablet by ity of tablet 00:00: mouth at [place] 00 bedtime. Medical Branch escitalopra Yes [id number] 20mg Take 1 [facility] m oxalate 6-06 tablet by ity o f (LEXAPRO) 00:00: mouth [place] 20 mg 00 daily. Medical tablet Branch glyBURIDE 5 Yes [id number] TAKE 1 [facility] mg tablet 6-06 TABLET BY ity o f 00:00: MOUTH [place] 00 TWICE Medical DAILY WITH Branch MEALS (NEEDS FOLLOW UP VISIT FOR FURTHER REFILLS) atorvastati Yes [id number] 20mg Take 1 [facility] n 20 mg 6-06 tablet by ity of tablet 00:00: mouth at [place] 00 bedtime. Medical Branch escitalopra Yes [id number] 20mg Take 1 [facility] m oxalate 6-06 tablet by ity o f (LEXAPRO) 00:00: mouth [place] 20 mg 00 daily. Medical tablet Branch glyBURIDE 5 Yes [id number] TAKE 1 [facility] mg tablet 6-06 TABLET BY ity o f 00:00: MOUTH [place] 00 TWICE Medical DAILY WITH Branch MEALS (NEEDS FOLLOW UP VISIT FOR FURTHER REFILLS) atorvastati Yes [id number] 20mg Take 1 [facility] n 20 mg 6-06 tablet by ity of tablet 00:00: mouth at [place] 00 bedtime. Medical Branch escitalopra Yes [id number] 20mg Take 1 [facility] m oxalate 6-06 tablet by ity o f (LEXAPRO) 00:00: mouth [place] 20 mg 00 daily. Medical tablet Branch glyBURIDE 5 Yes [id number] TAKE 1 [facility] mg tablet 6-06 TABLET BY ity o f 00:00: MOUTH [place] 00 TWICE Medical DAILY WITH Branch MEALS (NEEDS FOLLOW UP VISIT FOR FURTHER REFILLS) escitalopra 2022- No [id number] 20mg Take 1 [facility] m oxalate 6-06 02-21 tablet by ity of (LEXAPRO) 00:00: 00:00 mouth [place] 20 mg 00 :00 daily. Medical tablet Branch atorvastati 2022- No [id number] 20mg Take 1 [facility] n 20 mg 01-16 tablet by ity of tablet 00:00: 00:00 mouth at [place] 00 :00 bedtime. Medical Branch atorvastati 2021-2022- No [id number] 20mg Take 1 [facility] n 20 mg 01-16 tablet by ity of tablet 00:00: 00:00 mouth at [place] 00 :00 bedtime. Medical Branch atorvastati 2021-2022- No [id number] 20mg Take 1 [facility] n 20 mg 01-16 tablet by ity of tablet 00:00: 00:00 mouth at [place] 00 :00 bedtime. Medical Branch atorvastati 2021-2022- No [id number] 20mg Take 1 [facility] n 20 mg 01-16 tablet by ity of tablet 00:00: 00:00 mouth at [place] 00 :00 bedtime. Medical Branch empaglifloz 2021-2022- No [id number] 25mg Take 1 [facility] in 01-16 tablet by ity of (JARDIANCE) 00:00: 00:00 mouth [place] 25 mg Tab 00 :00 every Medical morning. Branch empaglifloz 2022- No [id number] 25mg Take 1 [facility] in 01-16 tablet by ity of (JARDIANCE) 00:00: 00:00 mouth [place] 25 mg Tab 00 :00 every Medical morning. Branch empaglifloz 2022- No [id number] 25mg Take 1 [facility] in 01-16 tablet by ity of (JARDIANCE) 00:00: 00:00 mouth [place] 25 mg Tab 00 :00 every Medical morning. Branch empaglifloz 2022- No [id number] 25mg Take 1 [facility] in 01-16 tablet by ity of (JARDIANCE) 00:00: 00:00 mouth [place] 25 mg Tab 00 :00 every Medical morning. Branch empaglifloz 2022- No [id number] 25mg Take 1 [facility] in 01-16 tablet by ity of (JARDIANCE) 00:00: 00:00 mouth [place] 25 mg Tab 00 :00 every Medical morning. Branch empaglifloz 2022- No [id number] 25mg Take 1 [facility] in 01-16 tablet by ity of (JARDIANCE) 00:00: 00:00 mouth [place] 25 mg Tab 00 :00 every Medical morning. Branch NUVARING 2021- No [id number] 1{each} Insert 1 [facility] (NUVARING) 01-16 Each into ity of 0.12-0.015 00:00: 00:00 [place] mg/24 hr 00 :00 once every Medic al vaginal month. Branch insert Insert vaginally and leave in place for 3 consecutiv e weeks, then remove for 1 week. NUVARING 2021- No [id number] 1{each} Insert 1 [facility] (NUVARING) 01-16 Each into ity of 0.12-0.015 00:00: 00:00 vagina [place] mg/24 hr 00 :00 once every Medic al vaginal month. Branch insert Insert vaginally and leave in place for 3 consecutiv e weeks, then remove for 1 week. NUVARING 2021- No [id number] 1{each} Insert 1 [facility] (NUVARING) 01-16 Each into ity of 0.12-0.015 00:00: 00:00 vagina [place] mg/24 hr 00 :00 once every Medic al vaginal month. Branch insert Insert vaginally and leave in place for 3 consecutiv e weeks, then remove for 1 week. MELOXICAM Yes [id number] Take 1 [facility] 15 mg 5-25 tablet by ity of tablet 00:00: mouth once [place] daily [facility] MELOXICAM Yes [id number] Take 1 [facility] 15 mg 5-25 tablet by ity of tablet 00:00: mouth once [place] daily Medical Branch MELOXICAM Yes [id number] Take 1 [facility] 15 mg 5-25 tablet by ity of tablet 00:00: mouth once [place] daily [facility] MELOXICAM Yes [id number] Take 1 [facility] 15 mg 5-25 tablet by ity of tablet 00:00: mouth once daily [facility] MELOXICAM Yes [id number] Take 1 [facility] 15 mg 5-25 tablet by ity of tablet 00:00: mouth once [place] 00 daily Medical Branch MELOXICAM 2-0 2022- No [id number] Take 1 [facility] 15 mg 5-25 10-04 tablet by ity of tablet 00:00: 00:00 mouth [place] 00 :00 daily Medical Branch MELOXICAM 2-0 2022- No [id number] Take 1 [facility] nivers 15 mg 5-25 10-04 tablet by ity of tablet 00:00: 00:00 mouth [place] 00 :00 daily Medical Branch tiZANidine 2022-0 Yes 4mg Take 1 Unive [...] Take 1 Univ ers 4 mg tablet 4-12 10-04 tablet by it y of 00:00: 00:00 mouth 3 00 :00 (three) Medical times Branch daily as needed (muscle spasm). tiZANidine 2022-0 2022- No 4mg Take 1 [facility] ers 4 mg tablet 4-12 10-04 tablet by it y of 00:00: 00:00 mouth 3 [place] 00 :00 (three) Medical times Branch daily as needed (muscle spasm). MONTELUKAST 2022-0 Yes [id number] Take 1 [facility] 10 mg 1-03 tablet by ity of tablet 00:00: mouth once daily Medical Branch MONTELUKAST 0 Yes [id number] Take 1 [facility] 10 mg 1-03 tablet by ity of tablet 00:00: mouth once daily Medical Branch MONTELUKAST 0 Yes [id number] Take 1 [facility] 10 mg 1-03 tablet by ity of tablet 00:00: mouth once daily Medical Branch MONTELUKAST 0 Yes [id number] Take 1 [facility] 10 mg 1-03 tablet by ity of tablet 00:00: mouth once daily Medical Branch MONTELUKAST 0 Yes [id number] Take 1 [facility] 10 mg 1-03 tablet by ity of tablet 00:00: mouth once daily Medical Branch MONTELUKAST 0 Yes [id number] Take 1 [facility] 10 mg 1-03 tablet by ity of tablet 00:00: mouth once daily Medical Branch MONTELUKAST 0 Yes [id number] Take 1 [facility] 10 mg 1-03 tablet by ity of tablet 00:00: mouth once daily Medical Branch MONTELUKAST 0 Yes [id number] Take 1 [facility] 10 mg 1-03 tablet by ity of tablet 00:00: mouth once daily Medical Branch MONTELUKAST 0 Yes [id number] Take 1 [facility] 10 mg 1-03 tablet by ity of tablet 00:00: mouth once daily Medical Branch MONTELUKAST 0 Yes [id number] Take 1 [facility] 10 mg 1-03 tablet by ity of tablet 00:00: mouth once daily Medical Branch MONTELUKAST 0 Yes [id number] Take 1 [facility] 10 mg 1-03 tablet by ity of tablet 00:00: mouth once daily Medical Branch MONTELUKAST 0 Yes [id number] Take 1 [facility] 10 mg 1-03 tablet by ity of tablet 00:00: mouth once daily Medical Branch MONTELUKAST 0 Yes [id number] Take 1 [facility] 10 mg 1-03 tablet by ity of tablet 00:00: mouth once daily Medical Branch MONTELUKAST 0 Yes [id number] Take 1 [facility] 10 mg 1-03 tablet by ity of tablet 00:00: mouth once daily Medical Branch MONTELUKAST 2021-0 Yes [id number] Take 1 [facility] 10 mg 1-03 tablet by ity of tablet 00:00: mouth once daily Medical Branch MONTELUKAST 2021-0 Yes [id number] Take 1 [facility] 10 mg 1-03 tablet by ity of tablet 00:00: mouth once daily Medical Branch MONTELUKAST 2021-0 Yes [id number] Take 1 [facility] 10 mg 1-03 tablet by ity of tablet 00:00: mouth once daily Medical Branch MONTELUKAST 0 Yes [id number] Take 1 [facility] 10 mg 1-03 tablet by ity of tablet 00:00: mouth once daily Medical Branch MONTELUKAST 0 Yes [id number] Take 1 [facility] 10 mg 1-03 tablet by ity of tablet 00:00: mouth once daily Medical Branch MONTELUKAST 0 Yes [id number] Take 1 [facility] 10 mg 1-03 tablet by ity of tablet 00:00: mouth once daily Medical Branch MONTELUKAST 0 Yes [id number] Take 1 [facility] 10 mg 1-03 tablet by ity of tablet 00:00: mouth once daily Medical Branch MONTELUKAST 0 Yes [id number] Take 1 [facility] 10 mg 1-03 tablet by ity of tablet 00:00: mouth once daily Medical Branch MONTELUKAST 2021-0 Yes [id number] Take 1 [facility] 10 mg 1-03 tablet by ity of tablet 00:00: mouth once daily Medical Branch MONTELUKAST 2021-0 Yes [id number] Take 1 [facility] 10 mg 1-03 tablet by ity of tablet 00:00: mouth once daily Medical Branch MONTELUKAST 2021-0 Yes [id number] Take 1 [facility] 10 mg 1-03 tablet by ity of tablet 00:00: mouth once daily Medical Branch MONTELUKAST 2021-0 2021- No [id number] Take 1 [facility] 10 mg 1-03 12-05 tablet by it[facility] of tablet 00:00: 00:00 mouth [place] 00 :00 daily Medical Branch MONTELUKAST 2021- No [id number] Take 1 [facility] 10 mg 08-15 tablet by ity of tablet 00:00: 00:00 mouth [place] 00 :00 daily Medical Branch MONTELUKAST 2021- No [id number] Take 1 [facility] 10 mg 08-15 tablet by ity of tablet 00:00: 00:00 mouth [place] 00 :00 daily Medical Branch MONTELUKAST 2021- No [id number] Take 1 [facility] 10 mg 08-15 tablet by ity of tablet 00:00: 00:00 mouth [place] 00 :00 daily [facility] 2020-08 Yes [id number] 5 ml po q [facility] 200 mg/5 mL 1-13 6 h prn ity o f Liqd 00:00: [facility] [place] [facility] Yes [id number] 5 ml po q [facility] 200 mg/5 mL 1-13 6 h prn ity o f Liqd 00:00: cough [place] [facility] 2020-08 Yes [id number] 5 ml po q [facility] 200 mg/5 mL 1-13 6 h prn ity o f Liqd 00:00: cough [place] [facility] Yes [id number] 5 ml po q [facility] 200 mg/5 mL 1-13 6 h prn ity o f Liqd 00:00: cough [place] [facility] Yes [id number] 5 ml po q [facility] 200 mg/5 mL 1-13 6 h prn ity o f Liqd 00:00: cough [place] [facility] Yes [id number] 5 ml po q [facility] 200 mg/5 mL 1-13 6 h prn ity o f Liqd 00:00: cough [place] [facility] Yes [id number] 5 ml po q [facility] 200 mg/5 mL 1-13 6 h prn ity o f Liqd 00:00: cough [place] [facility]08 Yes [id number] 5 ml po q [facility] 200 mg/5 mL 1-13 6 h prn ity o f Liqd 00:00: cough [place] [facility] 2020-08 Yes [id number] 5 ml po q [facility] 200 mg/5 mL 1-13 6 h prn ity o f Liqd 00:00: cough [place] [facility] 2020- Yes [id number] 5 ml po q [facility] 200 mg/5 mL 1-13 6 h prn ity o f Liqd 00:00: cough [place] [facility] 2020- Yes [id number] 5 ml po q [facility] 200 mg/5 mL 1-13 6 h prn ity o f Liqd 00:00: cough [place] [facility] 2020-08 Yes [id number] 5 ml po q [facility] 200 mg/5 mL 1-13 6 h prn ity o f Liqd 00:00: cough [place] [facility] 2020-08 Yes [id number] 5 ml po q [facility] 200 mg/5 mL 1-13 6 h prn ity o f Liqd 00:00: cough [place] [facility] 2020- Yes [id number] 5 ml po q [facility] 200 mg/5 mL 1-13 6 h prn ity o f Liqd 00:00: cough [place] [facility] 2020- Yes [id number] 5 ml po q [facility] 200 mg/5 mL 1-13 6 h prn ity o f Liqd 00:00: cough [place] [facility] 2020- Yes [id number] 5 ml po q [facility] 200 mg/5 mL 1-13 6 h prn ity o f Liqd 00:00: cough [place] [facility] 2020- Yes [id number] 5 ml po q [facility] 200 mg/5 mL 1-13 6 h prn ity o f Liqd 00:00: cough [place] [facility] 2020- Yes [id number] 5 ml po q [facility] 200 mg/5 mL 1-13 6 h prn ity o f Liqd 00:00: cough [place] [facility] 2020- Yes [id number] 5 ml po q [facility] 200 mg/5 mL 1-13 6 h prn ity o f Liqd 00:00: [facility] Yes [id number] 5 ml po q [facility] 200 mg/5 mL 1-13 6 h prn ity o f Liqd 00:00: [facility] 2020- Yes [id number] 5 ml po q [facility] 200 mg/5 mL 1-13 6 h prn ity o f Liqd 00:00: [facility] 2020- Yes [id number] 5 ml po q [facility] 200 mg/5 mL 1-13 6 h prn ity o f Liqd 00:00: cough [place] [facility]08 Yes [id number] 5 ml po q [facility] 200 mg/5 mL 1-13 6 h prn ity o f Liqd 00:00: [facility] Yes [id number] 5 ml po q [facility] 200 mg/5 mL 1-13 6 h prn ity o f Liqd 00:00: [facility] Yes [id number] 5 ml po q [facility] 200 mg/5 mL 1-13 6 h prn ity o f Liqd 00:00: cough [place] [facility] 2020- 2022- No [id number] 5 ml po q [facility] 200 mg/5 mL 1-13 12-05 6 h prn ity of Liqd 00:00: 00:00 cough [place] [facility] No [id number] 5 ml po q [facility] 200 mg/5 mL 1-13 12-05 6 h prn ity of Liqd 00:00: 00:00 cough [place] [facility] [id number] 5 ml po q [facility] 200 mg/5 mL 1-13 12-05 6 h prn ity of Liqd 00:00: 00:00 cough [place] [facility] [id number] 5 ml po q [facility] 200 mg/5 mL 1-13 12-05 6 h prn ity of Liqd 00:00: 00:00 cough [place] 00 :00 Medical Branch mupirocin 2 2020- Yes [id number] Apply to Univers % ointment 0-25 area(s) 3 ity of 00:00: (three) [place] 00 times Medical daily. Branch mupirocin 2 2020- Yes [id number] Apply to Univers % ointment 0-25 area(s) 3 ity of 00:00: (three) [place] 00 times Medical daily. Branch mupirocin 2 2020- Yes [id number] Apply to Univers % ointment 0-25 area(s) 3 ity of 00:00: (three) [place] 00 times Medical daily. Branch mupirocin 2 2020- Yes [id number] Apply to Univers % ointment 0-25 area(s) 3 ity of 00:00: (three) [place] 00 times Medical daily. Branch mupirocin 2 2020- Yes [id number] Apply to Univers % ointment 0-25 area(s) 3 ity of 00:00: (three) [place] 00 times Medical daily. Branch mupirocin 2 2020-08 Yes [id number] Apply to Univers % ointment 0-25 area(s) 3 ity of 00:00: (three) [place] 00 times Medical daily. Branch mupirocin 2 2020- Yes [id number] Apply to Univers % ointment 0-25 area(s) 3 ity of 00:00: (three) [place] 00 times Medical daily. Branch mupirocin 2 2020- Yes [id number] Apply to Univers % ointment 0-25 area(s) 3 ity of 00:00: (three) [place] 00 times Medical daily. Branch mupirocin 2 2020- Yes [id number] Apply to Univers % ointment 0-25 area(s) 3 ity of 00:00: (three) [place] 00 times Medical daily. Branch mupirocin 2 2020- Yes [id number] Apply to Univers % ointment 0-25 area(s) 3 ity of 00:00: (three) [place] 00 times Medical daily. Branch mupirocin 2 2020- Yes [id number] Apply to Univers % ointment 0-25 area(s) 3 ity of 00:00: (three) [place] 00 times Medical daily. Branch mupirocin 2 2020-08 Yes [id number] Apply to Univers % ointment 0-25 area(s) 3 ity of 00:00: (three) [place] 00 times Medical daily. Branch mupirocin 2 2020-08 Yes [id number] Apply to Univers % ointment 0-25 area(s) 3 ity of 00:00: (three) [place] 00 times Medical daily. Branch mupirocin 2 2020-08 Yes [id number] Apply to Univers % ointment 0-25 area(s) 3 ity of 00:00: (three) [place] 00 times Medical daily. Branch mupirocin 2 2020-08 Yes [id number] Apply to Univers % ointment 0-25 area(s) 3 ity of 00:00: (three) [place] 00 times Medical daily. Branch mupirocin 2 2020-08 Yes [id number] Apply to Univers % ointment 0-25 area(s) 3 ity of 00:00: (three) [place] 00 times Medical daily. Branch mupirocin 2 2020-08 Yes [id number] Apply to Univers % ointment 0-25 area(s) 3 ity of 00:00: (three) [place] 00 times Medical daily. Branch mupirocin 2 2020-08 Yes [id number] Apply to Univers % ointment 0-25 area(s) 3 ity of 00:00: (three) [place] 00 times Medical daily. Branch mupirocin 2 2020-08 Yes [id number] Apply to Univers % ointment 0-25 area(s) 3 ity of 00:00: (three) [place] 00 times Medical daily. Branch mupirocin 2 2020-08 Yes [id number] Apply to Univers % ointment 0-25 area(s) 3 ity of 00:00: (three) [place] 00 times Medical daily. Branch mupirocin 2 2020- Yes [id number] Apply to Univers % ointment 0-25 area(s) 3 ity of 00:00: (three) [place] 00 times Medical daily. Branch mupirocin 2 2020-08 Yes [id number] Apply to Univers % ointment 0-25 area(s) 3 ity of 00:00: (three) [place] 00 times Medical daily. Branch mupirocin 2 2020-08 Yes [id number] Apply to Univers % ointment 0-25 area(s) 3 ity of 00:00: (three) [place] 00 times Medical daily. Branch mupirocin 2 2020-08 Yes [id number] Apply to Univers % ointment 0-25 area(s) 3 ity of 00:00: (three) [place] 00 times Medical daily. Branch mupirocin 2 2020-08 Yes [id number] Apply to Univers % ointment 0-25 area(s) 3 ity of 00:00: (three) [place] 00 times Medical daily. Branch mupirocin 2 2020-08- No [id number] Apply to Univers % ointment 0-25 12-05 area(s) 3 ity of 00:00: 00:00 (three) [place] 00 :00 times Medical daily. Branch mupirocin 2 2020-08- No [id number] Apply to Univers % ointment 0-25 12-05 area(s) 3 ity of 00:00: 00:00 (three) [place] 00 :00 times Medical daily. Branch mupirocin 2 2020-08- No [id number] Apply to Univers % ointment 0-25 12-05 area(s) 3 ity of 00:00: 00:00 (three) [place] 00 :00 times Medical daily. Branch mupirocin 2 2020-08- No [id number] Apply to Univers % ointment 0-25 12-05 area(s) 3 ity of 00:00: 00:00 (three) [place] 00 :00 times Medical daily. Branch albuterol Yes [id number] 2{puff} Inhale 2 Univers 90 7-07 Puffs ity of mcg/actuati 00:00: every 6 [place] as on inhaler 00 (six) Medical hours as Branch needed for Wheezing or Shortness of Breath. albuterol Yes [id number] 2{puff} Inhale 2 Univers 90 7-07 Puffs ity of mcg/actuati 00:00: every 6 [place] as on inhaler 00 (six) Medical hours as Branch needed for Wheezing or Shortness of Breath. albuterol Yes [id number] 2{puff} Inhale 2 [facility] 90 7-07 Puffs ity of mcg/actuati 00:00: every 6 [place] as on inhaler 00 (six) Medical hours as Branch needed for Wheezing or Shortness of Breath. albuterol Yes [id number] 2{puff} Inhale 2 [facility] 90 7-07 Puffs ity of mcg/actuati 00:00: every 6 [place] on inhaler 00 (six) Medical hours as Branch needed for Wheezing or Shortness of Breath. albuterol Yes [id number] 2{puff} Inhale 2 [facility] 90 7-07 Puffs ity of mcg/actuati 00:00: every 6 [place] on inhaler 00 (six) Medical hours as Branch needed for Wheezing or Shortness of Breath. albuterol Yes [id number] 2{puff} Inhale 2 [facility] 90 7-07 Puffs ity of mcg/actuati 00:00: every 6 [place] on inhaler 00 (six) Medical hours as Branch needed for Wheezing or Shortness of Breath. albuterol Yes [id number] 2{puff} Inhale 2 [facility] 90 7-07 Puffs ity of mcg/actuati 00:00: every 6 [place] on inhaler 00 (six) Medical hours as Branch needed for Wheezing or Shortness of Breath. albuterol Yes [id number] 2{puff} Inhale 2 [facility] 90 7-07 Puffs ity of mcg/actuati 00:00: every 6 [place] as on inhaler 00 (six) Medical hours as Branch needed for Wheezing or Shortness of Breath. albuterol Yes [id number] 2{puff} Inhale 2 [facility] 90 7-07 Puffs ity of mcg/actuati 00:00: every 6 [place] as on inhaler 00 (six) Medical hours as Branch needed for Wheezing or Shortness of Breath. albuterol Yes [id number] 2{puff} Inhale 2 [facility] 90 7-07 Puffs ity of mcg/actuati 00:00: every 6 [place] as on inhaler 00 (six) Medical hours as Branch needed for Wheezing or Shortness of Breath. albuterol Yes [id number] 2{puff} Inhale 2 [facility] 90 7-07 Puffs ity of mcg/actuati 00:00: every 6 [place] as on inhaler 00 (six) Medical hours as Branch needed for Wheezing or Shortness of Breath. albuterol Yes [id number] 2{puff} Inhale 2 [facility] 90 7-07 Puffs ity of mcg/actuati 00:00: every 6 [place] as on inhaler 00 (six) Medical hours as Branch needed for Wheezing or Shortness of Breath. albuterol Yes [id number] 2{puff} Inhale 2 [facility] 90 7-07 Puffs ity of mcg/actuati 00:00: every 6 [place] as on inhaler 00 (six) Medical hours as Branch needed for Wheezing or Shortness of Breath. albuterol Yes [id number] 2{puff} Inhale 2 [facility] 90 7-07 Puffs ity of mcg/actuati 00:00: every 6 [place] as on inhaler 00 (six) Medical hours as Branch needed for Wheezing or Shortness of Breath. albuterol Yes [id number] 2{puff} Inhale 2 [facility] 90 7-07 Puffs ity of mcg/actuati 00:00: every 6 [place] as on inhaler 00 (six) Medical hours as Branch needed for Wheezing or Shortness of Breath. albuterol Yes [id number] 2{puff} Inhale 2 [facility] 90 7-07 Puffs ity of mcg/actuati 00:00: every 6 [place] as on inhaler 00 (six) Medical hours as Branch needed for Wheezing or Shortness of Breath. albuterol Yes [id number] 2{puff} Inhale 2 [facility] 90 7-07 Puffs ity of mcg/actuati 00:00: every 6 [place] as on inhaler 00 (six) Medical hours as Branch needed for Wheezing or Shortness of Breath. albuterol Yes [id number] 2{puff} Inhale 2 [facility] 90 7-07 Puffs ity of mcg/actuati 00:00: every 6 [place] as on inhaler 00 (six) Medical hours as Branch needed for Wheezing or Shortness of Breath. albuterol Yes [id number] 2{puff} Inhale 2 [facility] 90 7-07 Puffs ity of mcg/actuati 00:00: every 6 [place] as on inhaler 00 (six) Medical hours as Branch needed for Wheezing or Shortness of Breath. albuterol Yes [id number] 2{puff} Inhale 2 [facility] 90 7-07 Puffs ity of mcg/actuati 00:00: every 6 [place] as on inhaler 00 (six) Medical hours as Branch needed for Wheezing or Shortness of Breath. albuterol Yes [id number] 2{puff} Inhale 2 [facility] 90 7-07 Puffs ity of mcg/actuati 00:00: every 6 [place] as on inhaler 00 (six) Medical hours as Branch needed for Wheezing or Shortness of Breath. albuterol Yes [id number] 2{puff} Inhale 2 [facility] 90 7-07 Puffs ity of mcg/actuati 00:00: every 6 [place] as on inhaler 00 (six) Medical hours as Branch needed for Wheezing or Shortness of Breath. albuterol Yes [id number] 2{puff} Inhale 2 [facility] 90 7-07 Puffs ity of mcg/actuati 00:00: every 6 [place] as on inhaler 00 (six) Medical hours as Branch needed for Wheezing or Shortness of Breath. albuterol Yes [id number] 2{puff} Inhale 2 [facility] 90 7-07 Puffs ity of mcg/actuati 00:00: every 6 [place] as on inhaler 00 (six) Medical hours as Branch needed for Wheezing or Shortness of Breath. albuterol Yes [id number] 2{puff} Inhale 2 [facility] 90 7-07 Puffs ity of mcg/actuati 00:00: every 6 [place] as on inhaler 00 (six) Medical hours as Branch needed for Wheezing or Shortness of Breath. albuterol Yes [id number] 2{puff} Inhale 2 [facility] 90 7-07 Puffs ity of mcg/actuati 00:00: every 6 [place] as on inhaler 00 (six) Medical hours as Branch needed for Wheezing or Shortness of Breath. albuterol Yes [id number] 2{puff} Inhale 2 [facility] 90 7-07 Puffs ity of mcg/actuati 00:00: every 6 [place] as on inhaler 00 (six) Medical hours as Branch needed for Wheezing or Shortness of Breath. albuterol Yes [id number] 2{puff} Inhale 2 [facility] 90 7-07 Puffs ity of mcg/actuati 00:00: every 6 [place] as on inhaler 00 (six) Medical hours as Branch needed for Wheezing or Shortness of Breath. albuterol Yes [id number] 2{puff} Inhale 2 [facility] 90 7-07 Puffs ity of mcg/actuati 00:00: every 6 [place] as on inhaler 00 (six) Medical hours as Branch needed for Wheezing or Shortness of Breath. albuterol Yes [id number] 2{puff} Inhale 2 [facility] 90 7-07 Puffs ity of mcg/actuati 00:00: every 6 [place] as on inhaler 00 (six) Medical hours as Branch needed for Wheezing or Shortness of Breath. albuterol Yes [id number] 2{puff} Inhale 2 [facility] 90 7-07 Puffs ity of mcg/actuati 00:00: every 6 [place] as on inhaler 00 (six) Medical hours as Branch needed for Wheezing or Shortness of Breath. albuterol Yes [id number] 2{puff} Inhale 2 [facility] 90 7-07 Puffs ity of mcg/actuati 00:00: every 6 [place] as on inhaler 00 (six) Medical hours as Branch needed for Wheezing or Shortness of Breath. albuterol Yes [id number] 2{puff} Inhale 2 [facility] 90 7-07 Puffs ity of mcg/actuati 00:00: every 6 [place] as on inhaler 00 (six) Medical hours as Branch needed for Wheezing or Shortness of Breath. albuterol Yes [id number] 2{puff} Inhale 2 [facility] 90 7-07 Puffs ity of mcg/actuati 00:00: every 6 [place] as on inhaler 00 (six) Medical hours as Branch needed for Wheezing or Shortness of Breath. albuterol Yes [id number] 2{puff} Inhale 2 [facility] 90 7-07 Puffs ity of mcg/actuati 00:00: every 6 [place] [facility] on inhaler 00 (six) Medical hours as Branch needed for Wheezing or Shortness of Breath. albuterol Yes [id number] 2{puff} Inhale 2 [facility] 90 7-07 Puffs ity of mcg/actuati 00:00: every 6 [place] on inhaler 00 (six) Medical hours as Branch needed for Wheezing or Shortness of Breath. albuterol Yes [id number] 2{puff} Inhale 2 [facility] 90 7-07 Puffs ity of mcg/actuati 00:00: every 6 [place] [facility] on inhaler 00 (six) Medical hours as Branch needed for Wheezing or Shortness of Breath. albuterol Yes [id number] 2{puff} Inhale 2 [facility] 90 7-07 Puffs ity of mcg/actuati 00:00: every 6 [place] [facility] on inhaler 00 (six) Medical hours as Branch needed for Wheezing or Shortness of Breath. albuterol Yes [id number] 2{puff} Inhale 2 [facility] 90 7-07 Puffs ity of mcg/actuati 00:00: every 6 [place] [facility] on inhaler 00 (six) Medical hours as Branch needed for Wheezing or Shortness of Breath. albuterol Yes [id number] 2{puff} Inhale 2 [facility] 90 7-07 Puffs ity of mcg/actuati 00:00: every 6 [place] [facility] on inhaler 00 (six) Medical hours as Branch needed for Wheezing or Shortness of Breath. albuterol Yes [id number] 2{puff} Inhale 2 [facility] 90 7-07 Puffs ity of mcg/actuati 00:00: every 6 [place] [facility] on inhaler 00 (six) Medical hours as Branch needed for Wheezing or Shortness of Breath. albuterol Yes [id number] 2{puff} Inhale 2 [facility] 90 7-07 Puffs ity of mcg/actuati 00:00: every 6 [place] [facility] on inhaler 00 (six) Medical hours as Branch needed for Wheezing or Shortness of Breath. albuterol Yes [id number] 2{puff} Inhale 2 [facility] 90 7-07 Puffs ity of mcg/actuati 00:00: every 6 [place] [facility] on inhaler 00 (six) Medical hours as Branch needed for Wheezing or Shortness of Breath. albuterol Yes [id number] 2{puff} Inhale 2 [facility] 90 7-07 Puffs ity of mcg/actuati 00:00: every 6 [place] [facility] on inhaler 00 (six) Medical hours as Branch needed for Wheezing or Shortness of Breath. albuterol Yes [id number] 2{puff} Inhale 2 [facility] 90 7-07 Puffs ity of mcg/actuati 00:00: every 6 [place] [facility] on inhaler 00 (six) Medical hours as Branch needed for Wheezing or Shortness of Breath. albuterol Yes [id number] 2{puff} Inhale 2 [facility] 90 7-07 Puffs ity of mcg/actuati 00:00: every 6 [place] [facility] on inhaler 00 (six) Medical hours as Branch needed for Wheezing or Shortness of Breath. albuterol Yes [id number] 2{puff} Inhale 2 [facility] 90 7-07 Puffs ity of mcg/actuati 00:00: every 6 [place] [facility] on inhaler 00 (six) Medical hours as Branch needed for Wheezing or Shortness of Breath. albuterol Yes [id number] 2{puff} Inhale 2 [facility] 90 7-07 Puffs ity of mcg/actuati 00:00: every 6 [place] [facility] on inhaler 00 (six) Medical hours as Branch needed for Wheezing or Shortness of Breath. albuterol Yes [id number] 2{puff} Inhale 2 [facility] 90 7-07 Puffs ity of mcg/actuati 00:00: every 6 [place] [facility] on inhaler 00 (six) Medical hours as Branch needed for Wheezing or Shortness of Breath. albuterol Yes [id number] 2{puff} Inhale 2 [facility] 90 7-07 Puffs ity of mcg/actuati 00:00: every 6 [place] [facility] on inhaler 00 (six) Medical hours as Branch needed for Wheezing or Shortness of Breath. albuterol Yes [id number] 2{puff} Inhale 2 [facility] 90 7-07 Puffs ity of mcg/actuati 00:00: every 6 [place] [facility] on inhaler 00 (six) Medical hours as Branch needed for Wheezing or Shortness of Breath. albuterol Yes [id number] 2{puff} Inhale 2 [facility] 90 7-07 Puffs ity of mcg/actuati 00:00: every 6 [place] as on inhaler 00 (six) Medical hours as Branch needed for Wheezing or Shortness of Breath. albuterol Yes [id number] 2{puff} Inhale 2 [facility] 90 7-07 Puffs ity of mcg/actuati 00:00: every 6 [place] as on inhaler 00 (six) Medical hours as Branch needed for Wheezing or Shortness of Breath. albuterol Yes [id number] 2{puff} Inhale 2 [facility] 90 7-07 Puffs ity of mcg/actuati 00:00: every 6 [place] as on inhaler 00 (six) Medical hours as Branch needed for Wheezing or Shortness of Breath. albuterol Yes [id number] 2{puff} Inhale 2 [facility] 90 7-07 Puffs ity of mcg/actuati 00:00: every 6 [place] as on inhaler 00 (six) Medical hours as Branch needed for Wheezing or Shortness of Breath. albuterol Yes [id number] 2{puff} Inhale 2 [facility] 90 7-07 Puffs ity of mcg/actuati 00:00: every 6 [place] as on inhaler 00 (six) Medical hours as Branch needed for Wheezing or Shortness of Breath. albuterol Yes [id number] 2{puff} Inhale 2 [facility] 90 7-07 Puffs ity of mcg/actuati 00:00: every 6 [place] [facility] on inhaler 00 (six) Medical hours as Branch needed for Wheezing or Shortness of Breath. albuterol Yes [id number] 2{puff} Inhale 2 [facility] 90 7-07 Puffs ity of mcg/actuati 00:00: every 6 [place] [facility] on inhaler 00 (six) Medical hours as Branch needed for Wheezing or Shortness of Breath. albuterol Yes [id number] 2{puff} Inhale 2 [facility] 90 7-07 Puffs ity of mcg/actuati 00:00: every 6 [place] as on inhaler 00 (six) Medical hours as Branch needed for Wheezing or Shortness of Breath. albuterol Yes [id number] 2{puff} Inhale 2 [facility] 90 7-07 Puffs ity of mcg/actuati 00:00: every 6 [place] as on inhaler 00 (six) Medical hours as Branch needed for Wheezing or Shortness of Breath. albuterol Yes [id number] 2{puff} Inhale 2 [facility] 90 7-07 Puffs ity of mcg/actuati 00:00: every 6 [place] as on inhaler 00 (six) Medical hours as Branch needed for Wheezing or Shortness of Breath. albuterol Yes [id number] 2{puff} Inhale 2 [facility] 90 7-07 Puffs ity of mcg/actuati 00:00: every 6 [place] as on inhaler 00 (six) Medical hours as Branch needed for Wheezing or Shortness of Breath. albuterol Yes [id number] 2{puff} Inhale 2 [facility] 90 7-07 Puffs ity of mcg/actuati 00:00: every 6 [place] as on inhaler 00 (six) Medical hours as Branch needed for Wheezing or Shortness of Breath. albuterol Yes [id number] 2{puff} Inhale 2 [facility] 90 7-07 Puffs ity of mcg/actuati 00:00: every 6 [place] as on inhaler 00 (six) Medical hours as Branch needed for Wheezing or Shortness of Breath. albuterol Yes [id number] 2{puff} Inhale 2 [facility] 90 7-07 Puffs ity of mcg/actuati 00:00: every 6 [place] as on inhaler 00 (six) Medical hours as Branch needed for Wheezing or Shortness of Breath. albuterol Yes [id number] 2{puff} Inhale 2 [facility] 90 7-07 Puffs ity of mcg/actuati 00:00: every 6 [place] as on inhaler 00 (six) Medical hours as Branch needed for Wheezing or Shortness of Breath. albuterol Yes [id number] 2{puff} Inhale 2 [facility] 90 7-07 Puffs ity of mcg/actuati 00:00: every 6 [place] as on inhaler 00 (six) Medical hours as Branch needed for Wheezing or Shortness of Breath. albuterol Yes [id number] 2{puff} Inhale 2 [facility] 90 7-07 Puffs ity of mcg/actuati 00:00: every 6 [place] as on inhaler 00 (six) Medical hours as Branch needed for Wheezing or Shortness of Breath. albuterol Yes [id number] 2{puff} Inhale 2 [facility] 90 7-07 Puffs ity of mcg/actuati 00:00: every 6 [place] as on inhaler 00 (six) Medical hours as Branch needed for Wheezing or Shortness of Breath. albuterol Yes [id number] 2{puff} Inhale 2 [facility] 90 7-07 Puffs ity of mcg/actuati 00:00: every 6 [place] as on inhaler 00 (six) Medical hours as Branch needed for Wheezing or Shortness of Breath. albuterol Yes [id number] 2{puff} Inhale 2 [facility] 90 7-07 Puffs ity of mcg/actuati 00:00: every 6 [place] as on inhaler 00 (six) Medical hours as Branch needed for Wheezing or Shortness of Breath. albuterol Yes [id number] 2{puff} Inhale 2 [facility] 90 7-07 Puffs ity of mcg/actuati 00:00: every 6 [place] as on inhaler 00 (six) Medical hours as Branch needed for Wheezing or Shortness of Breath. albuterol Yes [id number] 2{puff} Inhale 2 [facility] 90 7-07 Puffs ity of mcg/actuati 00:00: every 6 [place] as on inhaler 00 (six) Medical hours as Branch needed for Wheezing or Shortness of Breath. albuterol Yes [id number] 2{puff} Inhale 2 [facility] 90 7-07 Puffs ity of mcg/actuati 00:00: every 6 [place] as on inhaler 00 (six) Medical hours as Branch needed for Wheezing or Shortness of Breath. albuterol Yes [id number] 2{puff} Inhale 2 [facility] 90 7-07 Puffs ity of mcg/actuati 00:00: every 6 [place] as on inhaler 00 (six) Medical hours as Branch needed for Wheezing or Shortness of Breath. albuterol Yes [id number] 2{puff} Inhale 2 [facility] 90 7-07 Puffs ity of mcg/actuati 00:00: every 6 [place] as on inhaler 00 (six) Medical hours as Branch needed for Wheezing or Shortness of Breath. albuterol Yes [id number] 2{puff} Inhale 2 [facility] 90 7-07 Puffs ity of mcg/actuati 00:00: every 6 [place] as on inhaler 00 (six) Medical hours as Branch needed for Wheezing or Shortness of Breath. albuterol Yes [id number] 2{puff} Inhale 2 [facility] 90 7-07 Puffs ity of mcg/actuati 00:00: every 6 [place] as on inhaler 00 (six) Medical hours as Branch needed for Wheezing or Shortness of Breath. albuterol Yes [id number] 2{puff} Inhale 2 [facility] 90 7-07 Puffs ity of mcg/actuati 00:00: every 6 [place] as on inhaler 00 (six) Medical hours as Branch needed for Wheezing or Shortness of Breath. hydrocortis Yes [id number] 1{appli Insert 1 [facility] one-pramovi 5-03 cator} Applicator ity of ne rectal 00:00: into [place] foam 00 rectum 2 Medical (two) Branch times daily. hydrocortis Yes [id number] 1{appli Insert 1 [facility] one-pramovi 5-03 cator} Applicator ity of ne rectal 00:00: into [place] foam 00 rectum 2 Medical (two) Branch times daily. hydrocortis Yes [id number] 1{appli Insert 1 [facility] one-pramovi 5-03 cator} Applicator ity of ne rectal 00:00: into [place] foam 00 rectum 2 Medical (two) Branch times daily. hydrocortis Yes [id number] 1{appli Insert 1 [facility] one-pramovi 5-03 cator} Applicator ity of ne rectal 00:00: into [place] foam 00 rectum 2 Medical (two) Branch times daily. hydrocortis Yes [id number] 1{appli Insert 1 [facility] one-pramovi 5-03 cator} Applicator ity of ne rectal 00:00: into [place] foam 00 rectum 2 Medical (two) Branch times daily. hydrocortis Yes [id number] 1{appli Insert 1 [facility] one-pramovi 5-03 cator} Applicator ity of ne rectal 00:00: into [place] foam 00 rectum 2 Medical (two) Branch times daily. hydrocortis Yes [id number] 1{appli Insert 1 [facility] one-pramovi 5-03 cator} Applicator ity of ne rectal 00:00: into [place] foam 00 rectum 2 Medical (two) Branch times daily. hydrocortis Yes [id number] 1{appli Insert 1 [facility] one-pramovi 5-03 cator} Applicator ity of ne rectal 00:00: into [place] foam 00 rectum 2 Medical (two) Branch times daily. hydrocortis Yes [id number] 1{appli Insert 1 [facility] one-pramovi 5-03 cator} Applicator ity of ne rectal 00:00: into [place] foam 00 rectum 2 Medical (two) Branch times daily. hydrocortis Yes [id number] 1{appli Insert 1 [facility] one-pramovi 5-03 cator} Applicator ity of ne rectal 00:00: into [place] foam 00 rectum 2 Medical (two) Branch times daily. hydrocortis Yes [id number] 1{appli Insert 1 [facility] one-pramovi 5-03 cator} Applicator ity of ne rectal 00:00: into [place] foam 00 rectum 2 Medical (two) Branch times daily. hydrocortis Yes [id number] 1{appli Insert 1 [facility] one-pramovi 5-03 cator} Applicator ity of ne rectal 00:00: into [place] foam 00 rectum 2 Medical (two) Branch times daily. hydrocortis Yes [id number] 1{appli Insert 1 [facility] one-pramovi 5-03 cator} Applicator ity of ne rectal 00:00: into [place] foam 00 rectum 2 Medical (two) Branch times daily. hydrocortis Yes [id number] 1{appli Insert 1 [facility] one-pramovi 5-03 cator} Applicator ity of ne rectal 00:00: into [place] foam 00 rectum 2 Medical (two) Branch times daily. hydrocortis Yes [id number] 1{appli Insert 1 [facility] one-pramovi 5-03 cator} Applicator ity of ne rectal 00:00: into [place] foam 00 rectum 2 Medical (two) Branch times daily. hydrocortis Yes [id number] 1{appli Insert 1 [facility] one-pramovi 5-03 cator} Applicator ity of ne rectal 00:00: into [place] foam 00 rectum 2 Medical (two) Branch times daily. hydrocortis Yes [id number] 1{appli Insert 1 [facility] one-pramovi 5-03 cator} Applicator ity of ne rectal 00:00: into [place] foam 00 rectum 2 Medical (two) Branch times daily. hydrocortis Yes [id number] 1{appli Insert 1 [facility] one-pramovi 5-03 cator} Applicator ity of ne rectal 00:00: into [place] foam 00 rectum 2 Medical (two) Branch times daily. hydrocortis Yes [id number] 1{appli Insert 1 [facility] one-pramovi 5-03 cator} Applicator ity of ne rectal 00:00: into [place] foam 00 rectum 2 Medical (two) Branch times daily. hydrocortis Yes [id number] 1{appli Insert 1 [facility] one-pramovi 5-03 cator} Applicator ity of ne rectal 00:00: into [place] foam 00 rectum 2 Medical (two) Branch times daily. hydrocortis Yes [id number] 1{appli Insert 1 [facility] one-pramovi 5-03 cator} Applicator ity of ne rectal 00:00: into [place] foam 00 rectum 2 Medical (two) Branch times daily. hydrocortis Yes [id number] 1{appli Insert 1 [facility] one-pramovi 5-03 cator} Applicator ity of ne rectal 00:00: into [place] foam 00 rectum 2 Medical (two) Branch times daily. hydrocortis Yes [id number] 1{appli Insert 1 [facility] one-pramovi 5-03 cator} Applicator ity of ne rectal 00:00: into [place] foam 00 rectum 2 Medical (two) Branch times daily. hydrocortis Yes [id number] 1{appli Insert 1 [facility] one-pramovi 5-03 cator} Applicator ity of ne rectal 00:00: into [place] foam 00 rectum 2 Medical (two) Branch times daily. hydrocortis Yes [id number] 1{appli Insert 1 [facility] one-pramovi 5-03 cator} Applicator ity of ne rectal 00:00: into [place] foam 00 rectum 2 Medical (two) Branch times daily. hydrocortis 2021- No [id number] 1{appli Insert 1 [facility] one-pramovi 5-03 12-05 cator} Applicator ity of ne rectal 00:00: 00:00 into [place] foam 00 :00 rectum 2 Medical (two) Branch times daily. hydrocortis 2021- No [id number] 1{appli Insert 1 [facility] one-pramovi 5-03 12-05 cator} Applicator ity of ne rectal 00:00: 00:00 into [place] foam 00 :00 rectum 2 Medical (two) Branch times daily. hydrocortis 2021- No [id number] 1{appli Insert 1 [facility] one-pramovi 5-03 -05 cator} Applicator ity of ne rectal 00:00: 00:00 into [place] foam 00 :00 rectum 2 Medical (two) Branch times daily. hydrocortis 2021- No [id number] 1{appli Insert 1 [facility] one-pramovi 5-03 12-05 cator} Applicator ity of ne rectal 00:00: [...] Insulin 2020-2021- No Use as Univers Syringe-Nee 1-12 07-17 directed ity of dle U-100 1 00:00: 00:00 [place] mL 31 gauge 00 :00 Medical x 5/16 Syrg Branch Insulin 2020-2021- No Use as Univers Syringe-Nee 1-12 07-17 directed ity of dle U-100 1 00:00: 00:00 [place] mL 31 gauge 00 :00 Medical x 5/16 Syrg Branch Insulin 2019-2021- No Use as Univers Syringe-Nee 08-24 directed ity of dle U-100 1 00:00: 00:00 [place] mL 31 gauge 00 :00 Medical x 5/16 Syrg Branch Insulin 2019-2021- No Use as Univers Syringe-Nee 08-24 directed ity of dle U-100 1 00:00: 00:00 [place] mL 31 gauge 00 :00 Medical x 5/16 Syrg Branch Immunizations Ordered Filled Immunization Date Status Comments [facility] e Immunization Name Name Influenza Virus 2022-05-29 Completed Universit y of Vaccine 00:00:00 [place] [facility] Influenza Virus 2022-05-29 Completed Universit y of Vaccine Quad .5 mL 00:00:00 [place] [facility] 6+ MO Branch Influenza Virus 2022-05-29 Completed Universit y of Vaccine 00:00:00 [facility] Influenza Virus 2022-05-29 Completed Universit y of Vaccine Quad .5 mL 00:00:00 [place] [facility] IM 6+ MO Branch Influenza Virus 2022-05-29 Completed Universit y of Vaccine 00:00:00 [place] [facility] Influenza Virus 2022-05-29 Completed Universit y of Vaccine Quad .5 mL 00:00:00 [place] [facility] IM 6+ MO Branch Influenza Virus 2022-05-29 Completed Universit y of Vaccine 00:00:00 [place] [facility] Influenza Virus 2022-05-29 Completed Universit y of Vaccine Quad .5 mL 00:00:00 [place] [facility] IM 6+ MO Branch Influenza Virus 2022-05-29 Completed Universit y of Vaccine 00:00:00 [place] [facility] Influenza Virus 2022-05-29 Completed Universit y of Vaccine Quad .5 mL 00:00:00 [place] [facility] IM 6+ MO Branch Influenza Virus 2022-05-29 Completed Universit y of Vaccine 00:00:00 [place] [facility] [place] Influenza Virus 2022-05-29 Completed Universit y of Vaccine Quad .5 mL 00:00:00 [place] [facility] IM 6+ MO Branch Influenza Virus 2022-05-29 Completed Universit y of Vaccine 00:00:00 [place] [facility] Influenza Virus 2022-05-29 Completed Universit y of Vaccine Quad .5 mL 00:00:00 [facility] IM 6+ MO Branch Influenza Virus 2022-05-29 Completed Universit y of Vaccine 00:00:00 [place] [facility] Influenza Virus 2022-05-29 Completed Universit y of Vaccine Quad .5 mL 00:00:00 [place] [facility] IM 6+ MO Branch Influenza Virus 2022-05-29 Completed Universit y of Vaccine 00:00:00 [facility] Influenza Virus 2022-05-29 Completed Universit y of Vaccine Quad .5 mL 00:00:00 [place] [facility] IM 6+ MO Branch Influenza Virus 2022-05-29 Completed Universit y of Vaccine 00:00:00 [facility] Influenza Virus 2022-05-29 Completed Universit y of Vaccine Quad .5 mL 00:00:00 [place] [facility] IM 6+ MO Branch Influenza Virus 2022-05-29 Completed Universit y of Vaccine 00:00:00 [facility] Influenza Virus 2022-05-29 Completed Universit y of Vaccine Quad .5 mL 00:00:00 [place] [facility] IM 6+ MO Branch Influenza Virus 2022-05-29 Completed Universit y of Vaccine 00:00:00 [facility] Influenza Virus 2022-05-29 Completed Universit y of Vaccine Quad .5 mL 00:00:00 [place] [facility] IM 6+ MO Branch Influenza Virus 2022-05-29 Completed Universit y of Vaccine 00:00:00 [facility] Influenza Virus 2022-05-29 Completed Universit y of Vaccine Quad .5 mL 00:00:00 [place] [facility] IM 6+ MO Branch Influenza Virus 2022-05-29 Completed Universit y of Vaccine 00:00:00 [facility] Influenza Virus 2022-05-29 Completed Universit y of Vaccine Quad .5 mL 00:00:00 [place] [facility] IM 6+ MO Branch Influenza Virus 2022-05-29 Completed Universit y of Vaccine 00:00:00 [facility] Influenza Virus 2022-05-29 Completed Universit y of Vaccine Quad .5 mL 00:00:00 [place] [facility] IM 6+ MO Branch Influenza Virus 2022-05-29 Completed Universit y of Vaccine 00:00:00 [facility] Influenza Virus 2022-05-29 Completed Universit y of Vaccine Quad .5 mL 00:00:00 [place] [facility] IM 6+ MO Branch Influenza Virus 2022-05-29 Completed Universit y of Vaccine 00:00:00 [facility] Influenza Virus 2022-05-29 Completed Universit y of [...] 00:00:00 [place] [facility] IM 6+ MO Branch Pneumococcal 2020-07-13 Completed University o f Polysaccharide, 00:00:00 [place] [facility] PPSV23 (PNEUMOVAX) Branch Pneumococcal 2020-07-13 Completed University o f Polysaccharide, 00:00:00 [place] [facility] ical PPSV23 (PNEUMOVAX) [place] Pneumococcal 2020-07-13 Completed University o f Polysaccharide, 00:00:00 [place] [facility] ical PPSV23 (PNEUMOVAX) [place] Pneumococcal 2020-07-13 Completed University o f Polysaccharide, [...] of Vaccine Quad .5 mL 00:00:00 [facility] IM 6+ MO [place] Influenza Virus 2020-05-13 Completed Universit y of Vaccine Quad .5 mL 00:00:00 [place] [facility] 6+ MO [place] Influenza Virus 2020-05-13 Completed Universit y of Vaccine Quad .5 mL 00:00:00 [place] [facility] 6+ MO Branch Influenza Virus 2020-05-13 Completed Universit y of Vaccine Quad .5 mL 00:00:00 [place] [facility] IM 6+ MO Branch Influenza Virus 2020-05-13 Completed Universit y of Vaccine Quad .5 mL 00:00:00 [place] [facility] IM 6+ MO Branch Influenza Virus 2020-05-13 Completed Universit y of Vaccine Quad .5 mL 00:00:00 [facility] IM 6+ MO Branch Influenza Virus 2020-05-13 Completed Universit y of Vaccine Quad .5 mL 00:00:00 [place] [facility] 6+ MO Branch Influenza Virus 2020-05-13 Completed Universit y of Vaccine Quad .5 mL 00:00:00 [place] [facility] 6+ MO Branch Influenza Virus 2020-05-13 Completed [...] y of Vaccine Quad .5 mL 00:00:00 [place] [facility] IM 6+ MO [place] Influenza Virus 2020-05-13 Completed Universit y of Vaccine Quad .5 mL 00:00:00 [place] [facility] IM 6+ MO [place] Influenza Virus 2017-05-29 Completed Universit y of Vaccine Quad IM 3+ 00:00:00 [facility] Influenza Virus 2017-05-29 Completed Universit y of Vaccine Quad IM 3+ 00:00:00 [facility] Influenza Virus 2017-05-29 Completed Universit y of Vaccine Quad IM 3+ 00:00:00 [facility] Influenza Virus 2017-05-29 Completed Universit y of Vaccine Quad IM 3+ 00:00:00 [facility] Influenza Virus 2017-05-29 Completed Universit y of Vaccine Quad IM 3+ 00:00:00 [facility] Influenza Virus 2017-05-29 Completed Universit y of Vaccine Quad IM 3+ 00:00:00 [facility] Influenza Virus 2017-05-29 Completed Universit y of Vaccine Quad IM 3+ 00:00:00 [facility] Influenza Virus 2017-05-29 Completed Universit y of Vaccine Quad IM 3+ 00:00:00 [facility] Influenza Virus 2017-05-29 Completed Universit y of Vaccine Quad IM 3+ 00:00:00 [facility] Influenza Virus 2017-05-29 Completed Universit y of Vaccine Quad IM 3+ 00:00:00 [facility] Influenza Virus 2017-05-29 Completed Universit y of Vaccine Quad IM 3+ 00:00:00 [facility] Influenza Virus 2017-05-29 Completed Universit y of Vaccine Quad IM 3+ 00:00:00 [facility] Influenza Virus 2017-05-29 Completed Universit y of Vaccine Quad IM 3+ 00:00:00 [facility] Influenza Virus 2017-05-29 Completed Universit y of Vaccine Quad IM 3+ 00:00:00 [facility] Influenza Virus 2017-05-29 Completed Universit y of Vaccine Quad IM 3+ 00:00:00 [facility] Influenza Virus 2017-05-29 Completed Universit y of Vaccine Quad IM 3+ 00:00:00 [facility] Influenza Virus 2017-05-29 Completed Universit y of Vaccine Quad IM 3+ 00:00:00 [facility] Influenza Virus 2017-05-29 Completed Universit y of Vaccine Quad IM 3+ 00:00:00 [facility] Influenza Virus 2017-05-29 Completed Universit y of Vaccine Quad IM 3+ 00:00:00 [facility] Influenza Virus 2017-05-29 Completed Universit y of Vaccine Quad IM 3+ 00:00:00 [facility] Influenza Virus 2017-05-29 Completed Universit y of Vaccine Quad IM 3+ 00:00:00 [facility] Influenza Virus 2017-05-29 Completed Universit y of Vaccine Quad IM 3+ 00:00:00 [facility] Influenza Virus 2017-05-29 Completed Universit y of Vaccine Quad IM 3+ 00:00:00 [facility] Influenza Virus 2017-05-29 Completed Universit y of Vaccine Quad IM 3+ 00:00:00 [facility] Influenza Virus 2017-05-29 Completed Universit y of Vaccine Quad IM 3+ 00:00:00 [facility] Influenza Virus 2017-05-29 Completed Universit y of Vaccine Quad IM 3+ 00:00:00 [facility] Influenza Virus 2017-05-29 Completed Universit y of Vaccine Quad IM 3+ 00:00:00 [facility] Influenza Virus 2017-05-29 Completed Universit y of Vaccine Quad IM 3+ 00:00:00 [facility] Influenza Virus 2017-05-29 Com[facility] 00:00:00 [facility] Influenza Virus 2017-05-29 Completed [facility] 00:00:00 [facility] Influenza Virus 2017-05-29 Completed [facility] 00:00:00 [facility] Influenza Virus 2017-05-29 Completed [facility] 00:00:00 [facility] Influenza Virus 2017-05-29 Completed [facility] 00[facility]00:00 [facility] Influenza Virus 2017-05-29 Completed [facility] 00:00:00 [facility] Influenza Virus 2017-05-29 Completed [facility] 00:00:00 [facility] Influenza Virus 2017-05-29 Completed [facility] 00:00:00 [facility] Influenza Virus 2017-05-29 Completed [facility] 00:00:00 [facility] Influenza Virus 2017-05-29 Completed [facility] 00:00:00 [facility] Influenza Virus 2017-05-29 Completed [facility] 00:00:00 [facility] Influenza Virus 2017-05-29 Completed [facility] 00:00:00 [facility] Influenza Virus 2017-05-29 Completed [facility] 00:00:00 [facility] Influenza Virus 2017-05-29 Completed [facility] 00:00:00 [facility] Influenza Virus 2017-05-29 Completed [facility] 00:00:00 [facility] Influenza Virus 2017-05-29 Completed [facility] 00:00:00 [facility] Influenza Virus 2017-05-29 Completed [facility] 00:00:00 [facility] Influenza Virus 2017-05-29 Completed [facility] 00:00:00 [facility] Influenza Virus 2017-05-29 Completed [facility] 00:00:00 [facility] Influenza Virus 2017-05-29 Completed [facility] 00:00:00 [facility] Influenza Virus 2017-05-29 Completed [facility] 00:00:00 [facility] Influenza Virus 2017-05-29 Completed [facility] 00:00:00 [facility] Influenza Virus 2017-05-29 Completed [facility]+ 00:00:00 [facility] Influenza Virus 2017-05-29 Completed [facility] 00:00:00 [facility] Influenza Virus 2017-05-29 Completed [facility] 00:00:00 [facility] Influenza Virus 2017-05-29 Completed [facility] 00:00:00 [facility] Influenza Virus 2017-05-29 Completed [facility] 00:00:00 [facility] Influenza Virus 2017-05-29 Completed [facility] 00:00:00 [facility] Influenza Virus 2017-05-29 Completed [facility] 00:00:00 [facility] Influenza Virus 2017-05-29 Completed [facility] 00:00:00 [facility] Influenza Virus 2017-05-29 Completed [facility] 00:00:00 [facility] Influenza Virus 2017-05-29 Completed [facility] 00:00:00 [facility] Influenza Virus 2017-05-29 Completed [facility] 00:00:00 [facility] Influenza Virus 2017-05-29 Completed [facility] 00:00:00 [facility] Influenza Virus 2017-05-29 Completed [facility]+ 00:00:00 [facility] Influenza Virus 2017-05-29 Completed [facility] 00:00:00 [facility] Influenza Virus 2017-05-29 Completed [facility] 00:00:00 [facility] Influenza Virus 2017-05-29 Completed [facility] 00:00:00 [facility] Influenza Virus 2017-05-29 Completed [facility] 00:00:00 [facility] Influenza Virus 2017-05-29 Completed [facility] 00:00:00 [facility] Influenza Virus 2017-05-29 Completed [facility] 00:00:00 [facility] Influenza Virus 2017-05-29 Completed [facility] 00:00:00 [facility] Influenza Virus 2017-05-29 Completed [facility] 00:00:00 [facility] Influenza Virus 2017-05-29 Completed [facility] 00:00:00 [facility] Influenza Virus 2017-05-29 Completed [facility] 00:00:00 [facility] Influenza Virus 2017-05-29 Completed [facility] 00:00:00 [facility] Influenza Virus 2017-05-29 Completed [facility] 00:00:00 [facility] Influenza Virus 2017-05-29 Completed [facility] 00:00:00 [facility] Influenza Virus 2017-05-29 Completed [facility] 00:00:00 [facility] Influenza Virus 2017-05-29 Completed [facility] 00:00:00 [facility] Influenza Virus 2017-05-29 Completed [facility] 00:00:00 [facility] MMR 2017-04-29 Completed [facility] 00:00:00 [facility] MMR 2017-04-29 Completed [facility] 00:00:00 [facility] MMR 2017-04-29 Completed [facility] 00[facility]00:00 [facility] MMR 2017-04-29 Completed [facility] 00:00:00 [facility] MMR 2017-04-29 Completed [facility] 00[facility]00:00 [facility] MMR 2017-04-29 Completed [facility] 00[facility]00:00 [facility] MMR 2017-04-29 Completed [facility] 00:00:00 [facility] MMR 2017-04-29 Completed [facility] 00[facility]00:00 [facility] MMR 2017-04-29 Completed [facility] 00[facility]00:00 [facility] MMR 2017-04-29 Completed [facility] 00[facility]00:00 [facility] MMR 2017-04-29 Completed [facility] 00:00:00 [facility] MMR 2017-04-29 Completed [facility] 00:00:00 [facility] MMR 2017-04-29 Completed [facility] 00:00:00 [facility] 2017-04-29 Completed [facility] 00:00:00 [facility] MMR 2017-04-29 Completed [facility] 00:00:00 [facility] MMR 2017-04-29 Completed [facility] 00[facility]00:00 [facility] MMR 2017-04-29 Completed [facility] 00[facility]00:00 [facility] MMR 2017-04-29 Completed [facility] 00[facility]00:00 [facility] MMR 2017-04-29 Completed [facility] 00[facility]00:00 [facility] MMR 2017-04-29 Completed [facility] 00[facility]00:00 [facility] MMR 2017-04-29 Completed [facility] 00[facility]00:00 [facility] MMR 2017-04-29 Completed [facility] 00[facility]00:00 [facility] MMR 2017-04-29 Completed [facility] 00[facility]00:00 [facility] MMR 2017-04-29 Completed [facility] 00:00:00 [facility] 2017-04-29 Completed [facility] 00:00:00 [facility] 2017-04-29 Completed [facility] 00[facility]00:00 [facility] 2017-04-29 Completed [facility] 00:00:00 [facility] 2017-04-29 Completed [facility] 00:00:00 [facility] 2017-04-29 Completed [facility] 00:00:00 [facility] 2017-04-29 Completed [facility] 00:00:00 [facility] 2017-04-29 Completed [facility] 00:00:00 [facility] 2017-04-29 Completed [facility] 00:00:00 [facility] 2017-04-29 Completed [facility] 00:00:00 [facility] 2017-04-29 Completed [facility] 00:00:00 [facility] 2017-04-29 Completed [facility] 00:00:00 [facility] 2017-04-29 Completed [facility] 00:00:00 [facility] 2017-04-29 Completed [facility] 00:00:00 [facility] 2017-04-29 Completed [facility] 00:00:00 [facility] 2017-04-29 Completed [facility] 00:00:00 [facility] 2017-04-29 Completed [facility] 00:00:00 [facility] 2017-04-29 Completed [facility] 00:00:00 [facility] 2017-04-29 Completed [facility] 00:00:00 [facility] 2017-04-29 Completed [facility] 00:00:00 [facility] 2017-04-29 Completed [facility] 00:00:00 [facility] 2017-04-29 Completed [facility] 00:00:00 [facility] 2017-04-29 Completed [facility] 00:00:00 [facility] 2017-04-29 Completed [facility] 00:00:00 [facility] 2017-04-29 Completed [facility] 00:00:00 [facility] 2017-04-29 Completed [facility] 00:00:00 [facility] 2017-04-29 Completed [facility] 00:00:00 [facility] 2017-04-29 Completed [facility] 00:00:00 [facility] 2017-04-29 Completed [facility] 00:00:00 [facility] 2017-04-29 Completed [facility] 00:00:00 [facility] 2017-04-29 Completed [facility] 00:00:00 [facility] 2017-04-29 Completed [facility] 00:00:00 [facility] MMR 2017-04-29 Completed [facility] 00:00:00 [facility] MMR 2017-04-29 Completed [facility] 00:00:00 [facility] MMR 2017-04-29 Completed [facility] 00:00:00 [facility] 2017-04-29 Completed [facility] 00:00:00 [facility] MMR 2017-04-29 Completed [facility] 00:00:00 [facility] MMR 2017-04-29 Completed [facility] 00:00:00 [facility] MMR 2017-04-29 Completed [facility] 00:00:00 [facility] MMR 2017-04-29 Completed [facility] 00:00:00 [facility] 2017-04-29 Completed [facility] 00:00:00 [facility] 2017-04-29 Completed [facility] 00:00:00 [facility] 2017-04-29 Completed [facility] 00:00:00 [facility] 2017-04-29 Completed [facility] 00:00:00 [facility] 2017-04-29 Completed [facility] 00:00:00 [facility] 2017-04-29 Completed [facility] 00:00:00 [facility] 2017-04-29 Completed [facility] 00:00:00 [facility] 2017-04-29 Completed [facility] 00:00:00 [facility] 2017-04-29 Completed [facility] 00:00:00 [facility] 2017-04-29 Completed [facility] 00:00:00 [facility] 2017-04-29 Completed [facility] 00:00:00 [facility] MMR 2017-04-29 Completed [facility] 00[facility]00:00 [facility] MMR 2017-04-29 Completed [facility] 00:00:00 [facility] MMR 2017-04-29 Completed [facility] 00[facility]00:00 [facility] MMR 2017-04-29 Completed [facility] 00[facility]00:00 [facility] MMR 2017-04-29 Completed [facility] 00:00:00 [facility] TDAP 2017-02-28 Completed [facility] 00[facility]00:00 [facility] TDAP 2017-02-28 Completed [facility] 00[facility]00:00 [facility] TDAP 2017-02-28 Completed [facility] 00:00:00 [facility] TDAP 2017-02-28 Completed [facility] 00:00:00 [facility] TDAP 2017-02-28 Completed [facility] 00:00:00 [facility] TDAP 2017-02-28 Completed [facility] 00:00:00 [facility] TDAP 2017-02-28 Completed [facility] 00:00:00 [facility] TDAP 2017-02-28 Completed [facility] 00:00:00 [facility] TDAP 2017-02-28 Completed [facility] 00:00:00 [facility] TDAP 2017-02-28 Completed [facility] 00:00:00 [facility] TDAP 2017-02-28 Completed [facility] 00:00:00 [facility] TDAP 2017-02-28 Completed [facility] 00:00:00 [facility] TDAP 2017-02-28 Completed [facility] 00:00:00 [facility] TDAP 2017-02-28 Completed [facility] 00:00:00 [facility] TDAP 2017-02-28 Completed [facility] 00:00:00 [facility] TDAP 2017-02-28 Completed [facility] 00:00:00 [facility] TDAP 2017-02-28 Completed [facility] 00:00:00 [facility] TDAP 2017-02-28 Completed [facility] 00:00:00 [facility] TDAP 2017-02-28 Completed [facility] 00:00:00 [facility] TDAP 2017-02-28 Completed [facility] 00:00:00 [facility] TDAP 2017-02-28 Completed [facility] 00:00:00 [facility] TDAP 2017-02-28 Completed [facility] 00:00:00 [facility] TDAP 2017-02-28 Completed [facility] 00:00:00 [facility] TDAP 2017-02-28 Completed [facility] 00:00:00 [facility] TDAP 2017-02-28 Completed [facility] 00:00:00 [facility] TDAP 2017-02-28 Completed [facility] 00:00:00 [facility] TDAP 2017-02-28 Completed [facility] 00:00:00 [facility] TDAP 2017-02-28 Completed [facility] 00:00:00 [facility] TDAP 2017-02-28 Completed [facility] 00:00:00 [facility] TDAP 2017-02-28 Completed [facility] 00:00:00 [facility] TDAP 2017-02-28 Completed [facility] 00:00:00 [facility] TDAP 2017-02-28 Completed [facility] 00:00:00 [facility] TDAP 2017-02-28 Completed [facility] 00:00:00 [facility] TDAP 2017-02-28 Completed [facility] 00:00:00 [facility] TDAP 2017-02-28 Completed [facility] 00:00:00 [facility] TDAP 2017-02-28 Completed [facility] 00:00:00 [facility] TDAP 2017-02-28 Completed [facility] 00:00:00 [facility] TDAP 2017-02-28 Completed [facility] 00:00:00 [facility] TDAP 2017-02-28 Completed [facility] 00:00:00 [facility] TDAP 2017-02-28 Completed [facility] 00:00:00 [facility] TDAP 2017-02-28 Completed [facility] 00:00:00 [facility] TDAP 2017-02-28 Completed [facility] 00:00:00 [facility] TDAP 2017-02-28 Completed [facility] 00:00:00 [facility] TDAP 2017-02-28 Completed [facility] 00:00:00 [facility] TDAP 2017-02-28 Completed [facility] 00:00:00 [facility] TDAP 2017-02-28 Completed [facility] 00:00:00 [facility] TDAP 2017-02-28 Completed [facility] 00:00:00 [facility] TDAP 2017-02-28 Completed [facility] 00:00:00 [facility] TDAP 2017-02-28 Completed [facility] 00:00:00 [facility] TDAP 2017-02-28 Completed [facility] 00:00:00 [facility] TDAP 2017-02-28 Completed [facility] 00:00:00 [facility] TDAP 2017-02-28 Completed [facility] 00:00:00 [facility] TDAP 2017-02-28 Completed [facility] 00:00:00 [facility] TDAP 2017-02-28 Completed [facility] 00:00:00 [facility] TDAP 2017-02-28 Completed [facility] 00:00:00 [facility] TDAP 2017-02-28 Completed [facility] 00:00:00 [facility] TDAP 2017-02-28 Completed [facility] 00:00:00 [facility] TDAP 2017-02-28 Completed [facility] 00:00:00 [facility] TDAP 2017-02-28 Completed [facility] 00[facility]00:00 [facility] TDAP 2017-02-28 Completed [facility] 00:00:00 [facility] TDAP 2017-02-28 Completed [facility] 00:00:00 [facility] TDAP 2017-02-28 Completed [facility] 00:00:00 [facility] TDAP 2017-02-28 Completed [facility] 00:00:00 [facility] TDAP 2017-02-28 Completed [facility] 00:00:00 [facility] TDAP 2017-02-28 Completed [facility] 00:00:00 [facility] TDAP 2017-02-28 Completed [facility] 00:00:00 [facility] TDAP 2017-02-28 Completed [facility] 00:00:00 [facility] TDAP 2017-02-28 Completed [facility] 00:00:00 [facility] TDAP 2017-02-28 Completed [facility] 00:00:00 [facility] TDAP 2017-02-28 Completed [facility] 00:00:00 [facility] TDAP 2017-02-28 Completed [facility] 00:00:00 [facility] TDAP 2017-02-28 Completed [facility] 00:00:00 [facility] TDAP 2017-02-28 Completed [facility] 00:00:00 [facility] TDAP 2017-02-28 Completed [facility] 00:00:00 [facility] TDAP 2017-02-28 Completed [facility] 00:00:00 [facility] TDAP 2017-02-28 Completed [facility] 00:00:00 [facility] TDAP 2017-02-28 Completed [facility] 00:00:00 [facility] TDAP 2017-02-28 Completed [facility] 00:00:00 [facility] TDAP 2017-02-28 Completed [facility] 00:00:00 [facility] TDAP 2012-08-26 Completed [facility] 00:00:00 [facility] TDAP 2012-08-26 Completed [facility] 00:00:00 [facility] TDAP 2012-08-26 Completed [facility] 00:00:00 [facility] TDAP 2012-08-26 Completed [facility] 00:00:00 [facility] TDAP 2012-08-26 Completed [facility] 00:00:00 [facility] TDAP 2012-08-26 Completed [facility] 00:00:00 [facility] TDAP 2012-08-26 Completed [facility] 00:00:00 [facility] TDAP 2012-08-26 Completed [facility] 00:00:00 [facility] TDAP 2012-08-26 Completed [facility] 00:00:00 [facility] TDAP 2012-08-26 Completed [facility] 00:00:00 [facility] TDAP 2012-08-26 Completed [facility] 00:00:00 [facility] TDAP 2012-08-26 Completed [facility] 00:00:00 [facility] TDAP 2012-08-26 Completed [facility] 00:00:00 [facility] TDAP 2012-08-26 Completed [facility] 00:00:00 [facility] TDAP 2012-08-26 Completed [facility] 00:00:00 [facility] TDAP 2012-08-26 Completed [facility] 00:00:00 [facility] TDAP 2012-08-26 Completed [facility] 00:00:00 [facility] TDAP 2012-08-26 Completed [facility] 00:00:00 [facility] TDAP 2012-08-26 Completed [facility] 00:00:00 [facility] TDAP 2012-08-26 Completed [facility] 00:00:00 [facility] TDAP 2012-08-26 Completed [facility] 00:00:00 [facility] TDAP 2012-08-26 Completed [facility] 00:00:00 [facility] TDAP 2012-08-26 Completed [facility] 00:00:00 [facility] TDAP 2012-08-26 Completed [facility] 00:00:00 [facility] TDAP 2012-08-26 Completed [facility] 00:00:00 [facility] TDAP 2012-08-26 Completed [facility] 00:00:00 [facility] TDAP 2012-08-26 Completed [facility] 00:00:00 [facility] TDAP 2012-08-26 Completed [facility] 00:00:00 [facility] TDAP 2012-08-26 Completed [facility] 00:00:00 [facility] TDAP 2012-08-26 Completed [facility] 00:00:00 [facility] TDAP 2012-08-26 Completed [facility] 00:00:00 [facility] TDAP 2012-08-26 Completed [facility] 00:00:00 [facility] TDAP 2012-08-26 Completed [facility] 00:00:00 [facility] TDAP 2012-08-26 Completed [facility] 00:00:00 [facility] TDAP 2012-08-26 Completed [facility] 00:00:00 [facility] TDAP 2012-08-26 Completed [facility] 00:00:00 [facility] TDAP 2012-08-26 Completed [facility] 00:00:00 [facility] TDAP 2012-08-26 Completed [facility] 00:00:00 [facility] TDAP 2012-08-26 Completed [facility] 00:00:00 [facility] TDAP 2012-08-26 Completed [facility] 00:00:00 [facility] TDAP 2012-08-26 Completed [facility] 00:00:00 [facility] TDAP 2012-08-26 Completed [facility] 00:00:00 [facility] TDAP 2012-08-26 Completed [facility] 00:00:00 [facility] TDAP 2012-08-26 Completed [facility] 00:00:00 [facility] TDAP 2012-08-26 Completed [facility] 00:00:00 [facility] TDAP 2012-08-26 Completed [facility] 00:00:00 [facility] TDAP 2012-08-26 Completed [facility] 00:00:00 [facility] TDAP 2012-08-26 Completed [facility] 00:00:00 [facility] TDAP 2012-08-26 Completed [facility] 00:00:00 [facility] TDAP 2012-08-26 Completed [facility] 00:00:00 [facility] TDAP 2012-08-26 Completed [facility] 00:00:00 [facility] TDAP 2012-08-26 Completed [facility] 00:00:00 [facility] TDAP 2012-08-26 Completed [facility] 00:00:00 [facility] TDAP 2012-08-26 Completed [facility] 00:00:00 [facility] TDAP 2012-08-26 Completed [facility] 00:00:00 [facility] TDAP 2012-08-26 Completed [facility] 00:00:00 [facility] TDAP 2012-08-26 Completed [facility] 00:00:00 [facility] TDAP 2012-08-26 Completed [facility] 00:00:00 [facility] TDAP 2012-08-26 Completed [facility] 00:00:00 [facility] TDAP 2012-08-26 Completed [facility] 00:00:00 [facility] TDAP 2012-08-26 Completed [facility] 00:00:00 [facility] TDAP 2012-08-26 Completed [facility] 00:00:00 [facility] TDAP 2012-08-26 Completed [facility] 00:00:00 [facility] TDAP 2012-08-26 Completed [facility] 00:00:00 [facility] TDAP 2012-08-26 Completed [facility] 00:00:00 [facility] TDAP 2012-08-26 Completed [facility] 00:00:00 [facility] TDAP 2012-08-26 Completed [facility] 00:00:00 [facility] TDAP 2012-08-26 Completed [facility] 00:00:00 [facility] TDAP 2012-08-26 Completed [facility] 00:00:00 [facility] TDAP 2012-08-26 Completed [facility] 00:00:00 [facility] TDAP 2012-08-26 Completed [facility] 00:00:00 [facility] TDAP 2012-08-26 Completed [facility] 00:00:00 [facility] TDAP 2012-08-26 Completed [facility] 00:00:00 [facility] TDAP 2012-08-26 Completed University of 00:00:00 [facility] TDAP 2012-08-26 Completed University of 00:00:00 [facility] TDAP 2012-08-26 Completed University of 00:00:00 [facility] TDAP 2012-08-26 Completed University of 00:00:00 [facility] TDAP 2012-08-26 Completed University of 00:00:00 [facility] TDAP 2012-08-26 Completed University of 00:00:00 [facility] Vital Signs Vital Name Observation Time Observation Value Comments Source Systolic blood 2022-09-21 17:31:00 125 mm[Hg] Univer sity of pressure [facility] Diastolic blood 2022-09-21 17:31:00 81 mm[Hg] Unive rsity of pressure [facility] Heart rate 2022-09-21 17:31:00 77 /min [facility] Body temperature 2022-09-21 17:31:00 37.17 [place] [address] ersity of [facility] Body height 2022-09-21 17:31:00 162.6 cm [facility] Body weight 2022-09-21 17:31:00 98.431 kg [facility] BMI 2022-09-21 17:31:00 37.25 kg/m2 [facility] Oxygen saturation in 2022-09-21 17:31:00 97 /min [facility] Arterial blood by [facility] Pulse oximetry Branch Systolic blood 2022-09-15 17:50:00 96 mm[Hg] Univer sity of pressure [facility] Diastolic blood 2022-09-15 17:50:00 67 mm[Hg] Unive rsity of pressure [facility] Heart rate 2022-09-15 17:50:00 81 /min Universi ty of [facility] Respiratory rate 2022-09-15 17:50:00 18 /min Univ ersity of [facility] Body temperature 2022-09-15 16:40:00 37 [place] Univ ersity [facility] Body height 2022-09-15 16:40:00 162.6 cm [facility] Body weight 2022-09-15 16:40:00 102.513 kg [facility] BMI 2022-09-15 16:40:00 38.79 kg/m2 [facility] Oxygen saturation in 2022-09-15 16:40:00 100 /min University of Arterial blood by [facility] Pulse oxim[facility] Branch Systolic blood 2022-09-13 15:34:00 114 mm[Hg] Univer sity of pressure [facility] Diastolic blood 2022-09-13 15:34:00 79 mm[Hg] Unive rsity of pressure [facility] Heart rate 2022-09-13 15:34:00 78 /min [facility]i ty [facility] Body weight 2022-09-13 15:34:00 102.83 kg [facility] BMI 2022-09-13 15:34:00 38.91 kg/m2 [facility] Oxygen saturation in 2022-09-13 15:34:00 98 /min University of Arterial blood by [facility] Pulse oxim[facility] Branch Systolic blood 2022-09-12 15:38:00 123 mm[Hg] Univer sity of pressure [facility] Diastolic blood 2022-09-12 15:38:00 71 mm[Hg] Unive rsity of pressure [facility] Heart rate 2022-09-12 15:38:00 70 /min [facility] Body temperature 2022-09-12 15:38:00 36.94 [place] Univ [facility] Respiratory rate 2022-09-12 15:38:00 16 /min Univ ersity of [facility] Body height 2022-09-12 15:38:00 162.6 cm [facility] Body weight 2022-09-12 15:38:00 102.059 kg [facility] BMI 2022-09-12 15:38:00 38.62 kg/m2 [facility] Oxygen saturation in 2022-09-12 15:38:00 98 /min University of Arterial blood by [place] [email or web address] Systolic blood 2022-08-21 15:34:00 123 mm[Hg] Univer sity of pressure [facility] Diastolic blood 2022-08-21 15:34:00 85 mm[Hg] Unive rsity of pressure [facility] Heart rate 2022-08-21 15:34:00 70 /min [facility] Body height 2022-08-21 15:34:00 162.6 cm [facility] Body weight 2022-08-21 15:34:00 100.699 kg [facility] BMI 2022-08-21 15:34:00 38.11 kg/m2 [facility] Systolic blood 2022-08-16 19:15:00 135 mm[Hg] Univer sity of pressure [facility] Diastolic blood 2022-08-16 19:15:00 96 mm[Hg] Unive rsity of pressure [facility] Heart rate 2022-08-16 19:15:00 74 /min [facility] Respiratory rate 2022-08-16 19:15:00 20 /min Univ ersity of [facility] Body height 2022-08-16 19:15:00 162.6 cm [facility] Body weight 2022-08-16 19:15:00 99.791 kg [facility] BMI 2022-08-16 19:15:00 37.76 kg/m2 [facility] Oxygen saturation in 2022-08-16 19:15:00 98 /min University of Arterial blood by [place] [facility] Systolic blood 2022-08-15 17:30:00 114 mm[Hg] Univer sity of pressure [facility] Diastolic blood 2022-08-15 17:30:00 79 mm[Hg] Unive rsity of pressure [facility] Heart rate 2022-08-15 17:30:00 81 /min [facility] Body temperature 2022-08-15 17:30:00 37 [place] Univ ersity [facility] Respiratory rate 2022-08-15 17:30:00 18 /min Univ ersity of [facility] Body height 2022-08-15 17:30:00 162.6 cm [facility] Body weight 2022-08-15 17:30:00 99.791 kg [facility] BMI 2022-08-15 17:30:00 37.76 kg/m2 [facility] Systolic blood 2022-08-02 19:33:00 132 mm[Hg] Univer sity of pressure [facility] Diastolic blood 2022-08-02 19:33:00 90 mm[Hg] Unive rsity of pressure [facility] Heart rate 2022-08-02 19:33:00 73 /min [facility] Body temperature 2022-08-02 19:33:00 36.61 [place] Univ [facility] Respiratory rate 2022-08-02 19:33:00 18 /min Univ ersity [facility] Body height 2022-08-02 19:33:00 162.6 cm [facility] Body weight 2022-08-02 19:33:00 97.977 kg [facility] BMI 2022-08-02 19:33:00 37.08 kg/m2 [facility] Systolic blood 2022-07-24 15:18:00 130 mm[Hg] Univer sity of pressure [facility] Diastolic blood 2022-07-24 15:18:00 86 mm[Hg] Unive rsity of pressure [facility] Heart rate 2022-07-24 15:18:00 73 /min [facility] Body height 2022-07-24 15:18:00 162.6 cm [facility] Body weight 2022-07-24 15:18:00 100.245 kg [facility] BMI 2022-07-24 15:18:00 37.93 kg/m2 [facility] Oxygen saturation in 2022-07-24 15:18:00 98 /min University of Arterial blood by [facility] P[facility] Systolic blood 2022-07-18 16:04:00 128 mm[Hg] Univer sity of pressure [facility] Diastolic blood 2022-07-18 16:04:00 86 mm[Hg] Unive rsity of pressure [facility] Heart rate 2022-07-18 16:04:00 83 /min [facility] Body height 2022-07-18 16:04:00 162.6 cm [facility] Body weight 2022-07-18 16:04:00 97.523 kg [facility] BMI 2022-07-18 16:04:00 36.90 kg/m2 [facility] Oxygen saturation in 2022-07-18 16:04:00 100 /min University of Arterial blood by [facility] Systolic blood 2022-07-17 17:07:00 122 mm[Hg] Univer sity of pressure [facility] Diastolic blood 2022-07-17 17:07:00 90 mm[Hg] Unive rsity of pressure [facility] Heart rate 2022-07-17 17:07:00 74 /min [facility] Body temperature 2022-07-17 17:07:00 36.72 [place] Univ [facility] Respiratory rate 2022-07-17 17:07:00 16 /min Univ [facility]ity [facility] Body height 2022-07-17 17:07:00 162.6 cm [facility] Body weight 2022-07-17 17:07:00 97.569 kg [facility] BMI 2022-07-17 17:07:00 36.92 kg/m2 [facility] Oxygen saturation in 2022-07-17 17:07:00 98 /min University of Arterial blood by [facility] Systolic blood 2022-06-30 21:20:00 101 mm[Hg] Univer sity of pressure [facility] Diastolic blood 2022-06-30 21:20:00 70 mm[Hg] Unive rsity of pressure [facility] Heart rate 2022-06-30 21:20:00 76 /min [facility] Respiratory rate 2022-06-30 21:10:00 18 /min Univ [facility]ity [facility] Body temperature 2022-06-30 20:27:00 36.67 [place] [facility] Body height 2022-06-30 20:27:00 162.6 cm [facility] Body weight 2022-06-30 20:27:00 90.719 kg [facility] BMI 2022-06-30 20:27:00 34.33 kg/m2 [facility] Oxygen saturation in 2022-06-30 20:27:00 95 /min University of Arterial blood by [facility] Systolic blood 2022-06-20 16:23:00 117 mm[Hg] Univer sity of pressure [facility] Diastolic blood 2022-06-20 16:23:00 77 mm[Hg] Unive rsity of pressure [facility] Heart rate 2022-06-20 16:23:00 87 /min [facility] Body temperature 2022-06-20 16:23:00 37 [place] Univ [facility] Respiratory rate 2022-06-20 16:23:00 18 /min Univ [facility] Body height 2022-06-20 16:23:00 162.6 cm [facility] Body weight 2022-06-20 16:23:00 95.709 kg [facility] BMI 2022-06-20 16:23:00 36.22 kg/m2 [facility] Body weight 2022-06-09 15:45:00 91.173 kg [facility] BMI 2022-06-09 15:45:00 34.50 kg/m2 [facility] Systolic blood 2022-05-16 15:31:00 133 mm[Hg] Univer sity of pressure [facility] Diastolic blood 2022-05-16 15:31:00 87 mm[Hg] Unive rsity of pressure [facility] Heart rate 2022-05-16 15:31:00 87 /min [facility] Respiratory rate 2022-05-16 15:31:00 12 /min [facility] Body height 2022-05-16 15:31:00 162.6 cm [facility] Body weight 2022-05-16 15:31:00 91.173 kg [facility] BMI 2022-05-16 15:31:00 34.50 kg/m2 [facility] Oxygen saturation in 2022-05-16 15:31:00 99 /min [facility] Arterial blood by [facility] Pulse o[facility] Procedures Procedure Date / Time Performing Clinician Source Performed [place] TIME OR 2022-09-15 17:38:14 Curtis Morley [facility] (NON-REPORTABLE) [facility] POCT GLUCOSE (AUTOMATED) 2022-09-15 16:38:00 Curtis Morley [facility] POCT TEST 2022-09-15 16:30:00 Curtis Morley [place] CONSENT/REFUSAL FOR 2022-09-12 15:19:35 Doctor Unassigned, [facility] DIAGNOSIS AND TREATMENT [place] [facility] MISCELLANEOUS SEND OUT 2022-08-21 16:05:00 Ez Palacio [facility] TEST [facility] DIAGNOSTIC MANAGEMENT 2022-08-21 16:05:00 Ez Palacio [facility] TEAM; SPECIAL COAGULATION Medica l Branch EVALUATION ANTIPHOSPHOLIPID ANTIBODY 2022-08-21 16:05:00 Cristi Palacio [facility] TESTS AND EVALUATION Medical Bra neh ANTIPHOSPHOLIPID ANTIBODY 2022-08-21 16:05:00 Cristi Palacio [facility] EVALUATION-LT BLUE Medical Bran h ANTICARDIOLIPIN ANTIBODIES 2022-08-21 16:05:00 Acacia Palacio [facility] ANTI-B2 GLYCOPROTEIN I AB 2022-08-21 16:05:00 Cristi Palacio [facility] ANTIPHOSPHOLIPID ANTIBODY 2022-08-21 16:05:00 Cristi Palacio [facility] EVALUATION-SST Medical Branch MR LUMBAR SPINE WO 2022-08-16 20:31:57 Skyler Ferrari [facility] CONTRAST [facility] US PELVIS COMPLETE WITH 2022-07-26 15:39:56 Ez Palacio [facility] TRANSVAGINAL [facility] POCT TEST 2022-07-17 00:00:00 Ez Palacio [facility] [place] TIME OR 2022-06-30 21:00:00 Curtis Morley [facility] (NON-REPORTABLE) [facility] POCT TEST 2022-06-30 20:15:00 Curtis Morley [facility] POCT TEST 2022-06-20 00:00:00 AdArgentina wetzel [facility] DISCLOSURE AND CONSENT, 2022-06-16 05:01:00 Doctor Unassigned, Ismael [facility] MEDICAL AND SURGICAL [place] Medical Bra [facility] PROCEDURES Plan of Care Planned Activity Planned Date Details Comments Source Encounters Start End Encounter Admission Attending Care Care Encounter Source Date/Time Date/Time Type Type Clinicians Facility Department ID 2021-11-08 [facility] [id number] Univers 15:18:[address] [facility] 2021-06-13 Emergency [facility] [id number] Univers 16:13:46 [facility] 2021-06-12 [facility] [id number] Univers 19:13:[address] [facility] 2021-06-12 [facility] [id number] Univers 02:02:[address] [facility] 2021-06-10 Outpatient R NORBERT DIAZ [facility] GIDemetri [id number] Univers 22:07:19 NORBERT DIAZ i [facility] 2023-03-21 2023-03-21 Outpatient R ZENOBIA [facility] [id number] Univers 12:30:00 12:30:[address] [facility] 2023-02-12 2023-02-12 Outpatient R RICHA DOMINGUEZ [facility] [id number] Univers 09:30:00 09:30:[address] [facility] 2022-12-11 2022-12-11 Outpatient R RICHA DOMINGUEZ [facility] [id number] Univers 10:00:00 10:00:00 RICHA [address]INGUEZ ity of [facility] 2022-10-03 2022-10-03 Telephone Zenobia, [facility] [id number] Univers 00:00:00 00:00:00 Holly Umanzor FRIENDSWO 350.1.13.10 [place] [id number] [place] dicnd AND ADULT [address] [facility] 2022-10-02 2022-10-02 Refill Zenobia, [facility] 1.2.840.114 [id number] Univers 00:00:00 00:00:00 Holly A HEALTH 350.1.13.10 i ty of [place] 4.2.7.2.686 [place] as KEITH?BLEA [id number] [address] MEDICAL OFFICE BUILDING 2022-10-01 2022-10-01 Refill Doctor [facility] 1.2.840.114 [id number] Univers 00:00:00 00:00:00 Unassigned, MULTISPEC 350.1.13.10 ity of [place].2.[place] [id number] [facility] AND [address] DIABETES CLINIC 2022-10-01 2022-10-01 Refill Doctor [facility] 1.2.840.114 [id number] Univers 00:00:00 00:00:00 Unassigned, FAMILY 350.1.13.10 ity of [place] MEDICINE 4.2.7.2.686 [place] CLINIC - [id number] [address] 2022-10-01 2022-10-01 Refill Amos [facility] 1.2.840.114 [id number] Univers 00:00:00 00:00:00 Radha FAMILY 350.1.13.10 it y of MEDICINE 4.2.7.2.686 [place] CLINIC - [id number] [address] 2022-09-21 2022-09-21 Office Zenobia, [facility] 1.2.840.114 [id number] Univers 11:00:00 11:57:44 Visit Holly Umanzor HEALTH 350.1.13.10 i ty of [place] 4.2.7.2.686 [place] KEITH?BLEA [id number] [address] MEDICAL OFFICE BUILDING 2022-09-21 2022-09-21 Outpatient R ZENOBIA [facility] [id number] Univers 11:00:00 11:57:[address] [facility] 2022-09-21 2022-09-21 Office [facility] 1.2.840.114 [id number] Univers 08:00:00 08:30:00 Visit , Taylor GOMEZ 350.1.13.10 ity of [place]DONAL[place] 4.2.7.2.686 [place] KEITH?BLEA [id number] [address] MEDICAL OFFICE BUILDING 2022-09-21 2022-09-21 Outpatient R DANA [facility] [id number] Univers 08:00:00 08:00:00 , TAYLOR cowan [facility] 2022-09-19 2022-09-19 Nurse Carolyn HERRERA 1.2.840.114 [id number] Univers 00:00:00 00:00:00 Triage JOLANTA Nava 350.1.13.10 ity of [facility] 4.2.7.2.686 [place] [id number] [address] 2022-09-19 2022-09-19 Telephone [facility] 1.2.077.114 [id number] Univers 00:00:00 00:00:00 Curtis WHEELER 350.1.13.10 ity of [place].2.[place] [id number] [address] DIABETES CLINIC 2022-09-18 2022-09-18 Telemedicbrooks [facility] 1.2.840.114 [id number] Univers 10:00:00 10:30:00 ne Visit Beth WHEELER 350.1.13.10 it[place]2.7.2.[place] [id number] [facility] AND [place] [address] DI[facility]ES CL[facility]IC 2022-09-18 2022-09-18 Outpatient R VERO [facility] [id number] Univers 10:00:00 10:00:00 BETH [address] o f [facility] 2022-09-18 2022-09-[address] [facility] [id number] Univers 00:00:00 00:00:00 Curtis RAHMANLATONYA 350.1.13.10 ity of [place]2.[place].2.[place] [id number] [facility] AND [place] [address] [facility]ES CLINIC 2022-09-15 2022-09-[address] [facility] 1.2.840.114 [id number] Univers 10:53:55 23:59:00 Encounter Curtis RAHMANPEC 350.1.13.10 ity of [place]2.[place].2.[place] [id number] [facility] AND [place] [address] DIAB[facility]ES CLINIC 2022-09-15 2022-09-[address] [facility] 1.2.840.114 [id number] Univers 10:30:00 11:00:00 Visit Curtis RAHMANLATONYA 350.1.13.10 ity of [place] [id number] [facility] AND [place] [address] [facility]IC 2022-09-15 2022-09-15 [facility]patient [facility] [id number] Univers 10:30:00 10:30:[address] [facility] 2022-09-13 2022-09-13 Outpatient R RICHA DOMINGUEZ [facility] [id number] Univers 09:30:00 10:35:[address] [facility] 2022-09-13 2022-09-13 Office Richa Dominguez [facility] 1.2.840.114 [id number] Univers 09:30:00 10:35:03 Visit HEALTH 350.1.13.10 it y of [place] 4.2.7.2.686 [place] KEITH?BLEA [id number] Mn krystal [address] MEDICAL OFFICE [facility] 2022-09-13 2022-09-13 Telephone [facility] 1.2.840.11 [id number] Univers 00:00:00 00:00:00 Ez CALLAWAY 350.1.13.10 it y of [place] [id number] [address] 2022-09-13 2022-09-13 Telephone Peyman [facility] 1.2.569.818 [id number] Univers 00:00:00 00:00:00 Curtis WHEELER 350.1.13.10 ity of [place]2.[place] [id number] [facility] AND [address] DIABETES CLINIC 2022-09-12 2022-09-12 Office Aayush [facility] 1.2.564.603 [id number] Univers 09:30:00 10:14:05 Visit Argentina CALLAWAY 350.1.13.10 i ty of [place] 4[place]2.7.2.[place] [id number] [address] 2022-09-12 2022-09-12 Outpatient R AAYUSH [facility] [id number] Univers 09:30:00 10:14:05 ARGENTINA guzmán [facility] 2022-09-12 2022-09-12 Orders Doctor JAVIER 1.2.840.114 [id number] Univers 00:00:00 00:00:00 Only Unassigned, JOLANTA 350.1.13.10 ity of [place] [facility] 4.2.7.2.686 [place] [id number] [address] 2022-09-06 2022-09-06 Patient Bruce [facility] ZAMBRANO 1.2.840.114 [id number] Univers 00:00:00 00:00:00 Secure Msg Ez CESIA 350.1.13.10 ity of [place] 4[place]2.[place].2.[place] [id number] [address] 2022-08-29 2022-08-29 Outpatient R PEYMAN [facility] [id number] Univers 10:30:00 10:30:00 CURTIS guzmán [facility] 2022-08-21 2022-08-21 Vessel Scrapper Lab, Raj - Ish [facility] 1.2.840.1 [id number] Univers 10:15:00 10:15:00 [facility] 350.1.13.10 ity boogie [place] 4.2.7.2.686 [place] KEITH?BLEA [id number] Mn krystal MCKEON [address] MEDICAL OFFICE [facility] 2022-08-21 2022-08-21 Outpatient [facility] [id number] Univers 10:15:00 10:09:08 BIAy [facility] 2022-08-21 2022-08-21 Office [facility] 1.2.840.114 [id number] Univers 09:30:00 09:56:40 [facility] 350.1.13.10 it y of [place] 4.2.7.2.686 [place] KEITH?BLEA [id number] Mn krystal MCKEON [address] [facility] OFFICE [facility] 2022-08-17 2022-08-17 Outpatient R [facility] [id number] Univers 13:00:00 13:00:00 ity [facility] 2022-08-17 2022-08-17 [facility]phone [facility] [id number] Univers 00:00:00 00:00:00 Radha FAMILY 350.1.13.10 it y of MEDICINE 4.2.7.2.686 [place] CLINIC - [id number] [address] 2022-08-16 2022-08-16 Outpatient SKYLER DOUGHERTY [facility] [id number] Univers 12:39:58 23:59:00 SKYLER FERRARI ity [facility] 2022-08-16 2022-08-16 [facility] [id number] [id number] Univers 12:39:58 23:59:00 Encounter Skyler [facility] SPECIALTY 350.1.13.10 [place] AT [id number] Mn liliolena RAMIREZ [address] [facility] 2022-08-16 2022-08-16 [facility]ill [facility] 1.2.840.114 [id number] Univers 00:00:00 00:00:00 Radha SWEENEY 350.1.13.10 it y of MEDICINE 4.2.7.2.686 [place] CLINIC - [id number] [address] 2022-08-15 2022-08-15 Outpatient R EZ PALACIO [facility] [id number] Univers 11:30:00 11:42:13 KAYLAEZ ROBLEDO [facility] 2022-08-15 2022-08-15 Office Bruce [facility] 1.2.840.114 [id number] Univers 11:30:00 11:42:13 Visit Ez CALLAWAY 350.1.13.10 it y [place] [id number] [address] 2022-08-15 2022-08-15 Telephone BillCAROLE casey DAWN 1.2.840.11 [id number] Univers 00:00:00 00:00:00 Ez CALLAWAY 350.1.13.10 it y [place] [id number] [address] 2022-08-03 2022-08-03 Vessel Scrapper Lab, Ang - Db [facility] 1.2.840.1 [id number] Univers 12:45:00 13:00:00 Visit Ez Palacio 350.1.13.1 0 ity of [place] 4.2.7.2.686 [place] KEITH?BLEA [id number] [address] MEDICAL OFFICE [facility] 2022-08-03 2022-08-03 Outpatient R KAYLAEZ ROBLEDO [facility] [id number] Univers 12:45:00 12:45:00 MONICAEZ AGUILERA [facility] 2022-08-02 2022-08-02 Outpatient R KAYLAEZ ROBLEDO [facility] [id number] Univers 13:00:00 13:55:50 KAYLAEZ ROBLEDO [facility] 2022-08-02 2022-08-02 Office Bruce [facility] 1.2.840.114 [id number] Univers 13:00:00 13:55:50 Visit Ez CALLAWAY 350.1.13.10 it y of [place] [id number] [facility] [address] 2022-07-26 2022-07-26 Outpatient R EZ PALACIO [facility] [id number] Univers 08:50:28 23:59:00 KAYLAEZ ROBLEDO ity [facility] 2022-07-26 2022-07-26 [facility] 1.2.840.114 [id number] Univers 08:50:28 23:59:00 Encounter Ez MACDONALD 350.1.13.10 ity of [place]2.7.[place] [id number] [facility] [address] 2022-07-26 2022-07-26 Telephone Vega [facility] 1.2.840.114 [id number] Univers 00:00:00 00:00:00 [facility] 350.1.13.10 ity of [place] 4.2.7.2.686 [place] as KEITH?BLEA [id number] [address] OFFICE [facility] 2022-07-24 2022-07-24 Outpatient R SKYLER FERRARI [facility] [id number] Univers 09:20:00 10:09:23 SKYLER FERRARI camryn [facility] 2022-07-24 2022-07-24 Office [facility] 1.2.840.114 [id number] Univers 09:20:00 10:09:23 Visit [facility] 350.1.13.10 ity of [facility] 4.2.7.2.686 [place] as KEITH?BLEA [phone] [address] OFFICE BUILDING 2022-07-19 2022-07-19 Telephone [facility] 1.2.840.11 4 [id number] Univers 00:00:00 00:00:00 Ez CALLAWAY 350.1.13.10 it y of WOMEN'S 4.2.7.2.[place] [id number] [facility] [address] 2022-07-18 2022-07-18 Outpatient R VERO [facility] [id number] Univers 10:00:00 11:06:06 BETH rosiecamryn o f [facility] 2022-07-18 2022-07-18 Office [facility] 1.2.840.114 [id number] Univers 10:00:00 11:06:06 Visit Beth WHEELER 350.1.13.10 ity of IALTY 4.2.7.2.[address] [facility] HAYES [phone] [facility] AND [address] DI[facility]ES CLINIC 2022-07-17 2022-07-17 Outpatient R EZ PALACIO [facility] [id number] Univers 10:45:00 11:30:28 EZ PALACIO [facility] 2022-07-17 2022-07-17 Office [facility] 1.2.840.114 [id number] Univers 10:45:00 11:30:28 Visit Ez CESIA 350.1.13.10 it y of WOMEN'S 4.2.7.2.686 [facility] [id number] [place] [address] [address] 2022-07-13 2022-07-13 Telephone [facility] 1.2.398.548 [id number] Univers 00:00:00 00:00:00 Curtis MULTISPEC 350.1.13.10 ity of [place] PATELY 4.2.7.2.[address] [facility] HAYES [id number] [address] DIABETES CLINIC 2022-07-11 2022-07-11 Telephone [facility] 1.2.855.312 [id number] Univers 00:00:00 00:00:00 Curtis RAHMANPEC 350.1.13.10 ity of [place] IAY 4.2.7.2.[address] [facility] HAYES [id number] [facility] AND [address] DIABETES CLINIC 2022-07-04 2022-07-04 Solis Trinidad [facility] 1.2.840.114 [id number] Univers 00:00:00 00:00:00 Radha FAMILY 350.1.13.10 it y of MEDICINE 4.2.7.2.[address] [facility] as CLINIC - [phone] [address] 2022-07-03 2022-07-03 Outpatient R JORY [facility] [id number] Univers 11:18:25 23:59:00 CAMILO guzmán [facility] 2022-07-03 2022-07-[address] [facility] 1.2.650.354 [id number] Univers 00:00:00 00:00:00 Curtis WHEELER 350.1.13.10 ity of [place] PATELY 4.2.7.2.[address] [facility] HAYES [phone] [facility] AND [place] [address] DIABETES CLINIC 2022-06-30 2022-06-30 [facility] 1.2.840.114 [id number] Univers 14:31:25 23:59:00 Encounter Curtis WHEELER 350.1.13.10 ity of [place] LUCAS 4.2.7.2.[address] [facility] HAYES [id number] [facility] AND [place] [address] DIABETES CLINIC 2022-06-30 2022-06-[address] [facility] 1.2.840.114 [id number] Univers 14:00:00 14:30:00 Visit Curtis WHEELER 350.1.13.10 ity of [place] L[place] 4.2.7.2.[address] [facility] HAYES [id number] [facility] [address] DIABETES CLINIC 2022-06-30 2022-06-30 Outpatient R [facility] [id number] Univers 14:00:00 14:00:00 CURTIS guzmán [facility] 2022-06-28 2022-06-[address] [facility] 1.2.994.404 [id number] Univers 00:00:00 00:00:00 Curtis WHEELER 350.1.13.10 ity of [place] 4.2.7.2.[address] [facility] HAYES [id number] [facility] [address] DIABETES CLINIC 2022-06-27 2022-06-27 [facility]is [facility] 1.2.840.114 [id number] Univers 00:00:00 00:00:00 Radha SWEENEY 350.1.13.10 it y of MEDICINE 4.2.7.2.686 [place] as CLINIC - [phone] [facility] 311 [facility] 2022-06-20 2022-06-20 Vessel Scrapper Lab, Ang - Db [facility] 1.2.840.1 14 [id number] Univers 11:45:00 12:00:00 Visit AdArgentina wetzel [facility] 350.1.13.10 ity of [place] 4.2.7.2.686 [place] KEITH?BLEA [phone] [facility] [address] MEDICAL OFFICE BUILDING 2022-06-20 2022-06-20 Outpatient R AAYUSH, [facility] [id number] Univers 10:00:00 10:51:04 ARGENTINA guzmán [facility] 2022-06-20 2022-06-20 Office Lupillo, [facility] 1.2.918.330 [id number] Univers 10:00:00 10:51:04 Visit Argentina CALLAWYA 350.1.13.10 i ty of WOMEN'S 4.2.7.2.686 [place] [id number] [facility] [address] 2022-06-16 2022-06-16 Orders Doctor JAVIER 1.2.840.114 [id number] Univers 00:00:00 00:00:00 Only Unassigned, JOLANTA 350.1.13.10 ity of [place] [facility] 4.2.7.2.686 [place] as [phone] [facility] [address] 2022-06-09 2022-06-09 Outpatient R JORY [facility] [id number] Univers 10:15:00 11:34:49 CAMILO guzmán [facility] 2022-06-09 2022-06-09 Office BRISEIDA Corley 1.2.263.007 [id number] Univers 10:15:00 11:34:49 Visit Camilo Cowan 350.1.13.10 i ty of [place] NATIONAL 4.2.7.2.686 [place] as BANK [id number] [facility] BLDG. [address] 2022-05-22 2022-05-22 Refill Doctor [facility] 1.2.840.114 [id number] Univers 00:00:00 00:00:00 Unassigned, FAMILY 350.1.13.10 ity of [place] MEDICINE 4.2.7.2.686 [place] as CLINIC - [phone] [address] 2022-05-21 2022-05-21 [facility] 1.2.840.114 [id number] Univers 00:00:00 00:00:00 Radha SEWENEY 350.1.13.10 it y of MEDICINE 4.2.7.2.686 [place] CLINIC - [id number] [address] 2022-05-17 2022-05-[address] [facility] 1.2.699.158 [id number] [id number] Univers 00:00:00 00:00:00 Curtis RAHMANPEC 350.1.13.10 ity of [place] 4.2.7.2.686 [place] [id number] [address] DIABETES CLINIC 2022-05-17 2022-05-[address] [facility] 1.2.862.429 [id number] [id number] Univers 00:00:00 00:00:00 Curtis WHEELER 350.1.13.10 ity of [place] 4.2.7.2.686 [place] [id number] [address] DIABETES CLINIC 2022-05-17 2022-05-17 Telephone [facility] 1.2.685.492 [id number] [id number] Univers 00:00:00 00:00:00 Radha SWEENEY 350.1.13.10 it y of MEDICINE 4.2.7.2.686 [place] CLINIC - [phone] [address] 2022-05-16 2022-05-16 Outpatient R [facility] [id number] Univers 10:00:00 11:13:[address] [facility] 2022-05-16 2022-05-[address] [facility] 1.2.840.114 [id number] Univers 10:00:00 11:13:48 Visit Curtis WHEELER 350.1.13.10 ity of [place] 4.2.7.2.686 [place] [id number] [place] [address] [address] DIABETES CLINIC 2022-05-08 2022-05-08 Vessel Scrapper Lab, Anthony [address] [facility] 1 .2.840.114 [id number] Univers 09:15:00 09:30:00 Visit Radha Trinidad 350.1.13.10 ity of MEDICINE 4.2.7.2.686 [place] as CLINIC - [id number] [address] 2022-05-08 2022-05-08 Outpatient R AMOS [facility] [id number] Univers 09:15:00 09:15:00 [facility]22-05-04 2022-05-04 Telephone Amos [facility] 1.2.880.723 [id number] Univers 00:00:00 00:00:00 Radha SWEENEY 350.1.13.10 it y of MEDICINE 4.2.7.2.686 [place] CLINIC - [phone] [address] 2022-05-01 2022-05-01 Solis Morley [facility] 1.2.840.114 [id number] Univers 00:00:00 00:00:00 [facility] 350.1.13.10 ity of [place] 4.2.7.2.[address] [facility] C[facility] [phone] [facility] [address] DIABETES CLINIC 2022-04-28 2022-04-28 Solis Michel [facility] 1.2.840.114 [id number] Univers 00:00:00 00:00:00 [facility] 350.1.13.10 it y of CANCER 4.2.7.2.[address] [facility] CENTER - [phone] [place] [address] [address] 2022-04-26 2022-04-26 Telephone Amos [facility] 1.2.204.486 [id number] Univers 00:00:00 00:00:00 Radha SWEENEY 350.1.13.10 it y of MEDICINE 4.2.7.2.686 [place] CLINIC - [id number] [address] 2022-04-21 2022-04-21 Solis Michel [facility] 1.2.840.114 [id number] Univers 00:00:00 00:00:00 [facility] 350.1.13.10 it y of CANCER 4.2.7.2.686 [place] [facility] - [id number] [facility] [address] 2022-04-21 2022-04-21 Refill Doctor [facility] 1.2.840.114 [id number] Univers 00:00:00 00:00:00 Unassigned, FAMILY 350.1.13.10 ity of [place] MEDICINE 4.2.7.2.686 [place] as CLINIC - [id number] [facility] 311 [facility] 2022-04-21 2022-04-21 Refill Olu [facility] 1.2.840.114 [id number] Univers 00:00:00 00:00:00 [facility] 350.1.13.10 i ty of PEDIATRIC 4.2.7.2.686 [place] [phone] [address] 2022-04-18 2022-04-18 Telemedici [facility] 1.2.840.114 [id number] Univers 14:00:00 14:30:00 ne Visit Radha SWEENEY 350.1.13.10 i ty of MEDICINE 4.2.7.2.686 [place] CLINIC - [phone] [address] 2022-04-18 2022-04-18 Outpatient [facility]alee [facility] [id number] Univers 14:00:00 14:00:[address] [facility] 2022-04-18 2022-04-18 Outpatient [facility]alee [facility] [id number] Univers 14:00:00 14:00:[address] [facility] 2022-04-18 2022-04-18 Outpatient Annalee [facility] [id number] Univers 10:00:00 10:00:00 [facility] 2022-04-17 2022-04-17 Telephone [facility] 1.2.152.463 [id number] Univers 00:00:00 00:00:00 Radha SWEENEY 350.1.13.10 it y of MEDICINE 4.2.7.2.686 [place] CLINIC - [phone] [facility] 311 [facility] 2022-04-13 2022-04-13 Refjo[facility]ann [facility] 1.2.840.114 [id number] Univers 00:00:00 00:00:00 Radha FAMILY 350.1.13.10 it y of MEDICINE 4.2.7.2.686 [place] CLINIC - [id number] [address] 2022-04-05 2022-04-05 Orders Doctor JAVIER 1.2.840.114 [id number] Univers 00:00:00 00:00:00 Only Unassigned, JOLANTA 350.1.13.10 ity of [place] [facility] 4.2.7.2.686 [place] as [id number] [address] 2022-03-26 2022-03-26 [facility] 1.2.840.114 [id number] Univers 00:00:00 00:00:00 Radha FAMILY 350.1.13.10 it y of MEDICINE 4.2.7.2.686 [place] CLINIC - [phone] [address] 2022-03-26 2022-03-26 Refjo[facility]ann [facility] 1.2.840.114 [id number] Univers 00:00:00 00:00:00 Azalia GetIntent 350.1.13.10 it y of CANCER 4.2.7.2.686 [place] [facility] - [id number] [address] 2022-03-13 2022-03-13 Orders Doctor JAVIER 1.2.840.114 [id number] Univers 00:00:00 00:00:00 Only Unassigned, JOLANTA 350.1.13.10 ity of [place] [facility] 4.2.7.2.686 [place] [id number] [address] 2022-03-10 2022-03-10 Telephone [facility] 1.2.396.888 [id number] Univers 00:00:00 00:00:00 Radha FAMILY 350.1.13.10 it y of MEDICINE 4.2.7.2.686 [place] CLINIC - [id number] [address] 2022-03-08 2022-03-08 Telephone [facility] 1.2.114.030 [id number] [id number] Univers 00:00:00 00:00:00 [facility] 350.1.13.10 it y of CANCER 4.2.7.2.686 [facility] [id number] [address] 2022-03-08 2022-03-08 Telephone [facility] 1.2.035.989 [id number] [id number] Univers 00:00:00 00:00:00 Radha FAMILY 350.1.13.10 it y of MEDICINE 4.2.7.2.686 [place] CLINIC - 693.3366247 [address] 2022-03-07 2022-03-07 Outpatient [facility] [id number] Univers 14:00:00 14:00:00 [facility]IA [facility] 2022-03-07 2022-03-07 Telephone [facility] 1.2.354.185 [id number] 0987 Univers 00:00:00 00:00:00 Radha FAMILY 350.1.13.10 it y of MEDICINE 4.2.7.2.686 [place] CLINIC - [id number] [address] 2022-03-05 2022-03-05 [facility] 1.2.840.114 [id number] Univers 00:00:00 00:00:00 Radha FAMILY 350.1.13.10 it y of MEDICINE 4.2.7.2.686 [place] CLINIC - [id number] [address] 2022-02-28 2022-02-28 Patient Doctor [facility] 1.2.840.114 [id number] Univers 00:00:00 00:00:00 Secure Msg Unassigned, FAMILY 350.1.13.10 ity of [place] MEDICINE 4.2.7.2.686 [place] CLINIC - [phone] [address] 2022-02-13 2022-02-13 Refill [facility] 1.2.840.114 [id number] Univers 00:00:00 00:00:00 Radha SWEENEY 350.1.13.10 it y of MEDICINE 4.2.7.2.686 [place] CLINIC - 214.6333602 [address] 2022-02-10 2022-02-10 Telephone [facility] 1.2.835.349 [id number] Univers 00:00:00 00:00:00 Radha SWEENEY 350.1.13.10 it y of MEDICINE 4.2.7.2.686 [place] CLINIC - [id number] [address] 2022-02-10 2022-02-10 Refill [facility] 1.2.840.114 [id number] Univers 00:00:00 00:00:00 Radha SWEENEY 350.1.13.10 it y of MEDICINE 4.2.7.2.686 [place] CLINIC - 145.0941525 [address] 2022-02-09 2022-02-09 [facility] 1.2.840.114 [id number] Univers 00:00:00 00:00:00 Radha SWEENEY 350.1.13.10 it y of MEDICINE 4.2.7.2.686 [place] CLINIC - 641.1680699 [address] 2022-02-09 2022-02-09 [facility] 1.2.840.114 [id number] Univers 00:00:00 00:00:00 [facility] HEALTH 350.1.13.10 it y of [place] 4.2.7.2.686 [place] C[place] - [id number] [address] 2022-01-24 2022-01-24 Office [facility] 1.2.840.114 [id number] Univers 14:00:00 14:15:00 Visit Azalia HEALTH 350.1.13.10 it y of CANCER 4.2.7.2.[address] [facility] - 577.6090890 [address] 2022-01-24 2022-01-24 Outpatient R MARILU [facility] [id number] Univers 14:00:00 14:00:00 AZALIA guzmán of [facility] 2022-01-24 2022-01-24 Outpatient R MARILU [facility] [id number] Univers 14:00:00 14:00:00 [facility] 2022-01-24 2022-01-24 Outpatient R MARILU [facility] [id number] Univers 14:00:00 14:00:00 [facility] 2022-01-24 2022-01-24 Outpatient R MARILU [facility] [id number] Univers 14:00:00 14:00:00 [facility] 2022-01-24 2022-01-24 Patient [facility] 1.2.840.114 [id number] Univers 00:00:00 00:00:00 Secure Msg Radha SWEENEY 350.1.13.10 ity of MEDICINE 4.2.7.2.686 [place] CLINIC - [id number] [address] 2022-01-20 2022-01-20 Telephone [facility] 1.2.328.660 [id number] Univers 00:00:00 00:00:00 Radha SWEENEY 350.1.13.10 it y of MEDICINE 4.2.7.2.686 [place] CLINIC - 277.9755207 [address] 2022-01-20 2022-01-20 Telephone [facility] 1.2.637.182 [id number] [id number] Univers 00:00:00 00:00:00 Radha SWEENEY 350.1.13.10 it y of MEDICINE 4.2.7.2.686 [place] CLINIC - 764.7526250 [address] 2022-01-16 2022-01-16 Office [facility] 1.2.840.114 [id number] Univers 15:00:00 15:30:00 Visit Radha SWEENEY 350.1.13.10 it y of MEDICINE 4.2.7.2.686 [place] CLINIC - [id number] [address] 2022-01-16 2022-01-16 Outpatient [facility] [id number] Univers 15:00:00 15:00:[address] [facility] 2022-01-16 2022-01-16 [facility] 1.2.840.114 [id number] Univers 00:00:00 00:00:00 Catalina SWEENEY 350.1.13.10 ity of MEDICINE 4.2.7.2.686 [place] CLINIC - 000.5296657 [address] 2022-01-04 2022-01-04 Solis Morley [facility] 1.2.840.114 [id number] Univers 00:00:00 00:00:00 Curtis MULTISPEC 350.1.13.10 ity of [place] IALTY 4.2.7.2.[address] [facility] HAYES 816.5177130 [address] DIABETES CLINIC 2022-01-04 2022-01-04 [facility]is [facility] 1.2.840.114 [id number] Univers 00:00:00 00:00:00 Radha SWEENEY 350.1.13.10 it y of MEDICINE 4.2.7.2.686 [place] CLINIC - 109.7403784 [address] 2021-12-21 2021-12-21 Telephone Marilu [facility] 1.2.000.821 [id number] Univers 00:00:00 00:00:00 [facility] 350.1.13.10 it y of CANCER 4.2.7.2.686 [facility] - [id number] [address] 2021-12-20 2021-12-20 Outpatient R MARILU [facility] [id number] Univers 14:30:00 14:30:00 AZALIA guzmán [facility] 2021-12-07 2021-12-07 Refjo[facility]ann [facility] 1.2.840.114 [id number] Univers 00:00:00 00:00:00 Radha SWEENEY 350.1.13.10 it y of MEDICINE 4.2.7.2.686 [place] CLINIC - [phone] [address] 2021-11-29 2021-11-29 Patient Amos [facility] 1.2.840.114 [id number] Univers 00:00:00 00:00:00 Secure Msg Radha SWEENEY 350.1.13.10 ity of MEDICINE 4.2.7.2.686 [place] CLINIC - 519.0271254 [address] 2021-11-22 2021-11-22 Telemedici [facility] 1.2.840.114 [id number] Univers 16:00:00 16:15:00 ne Visit [facility] 350.1.13.10 i ty of CANCER 4.2.7.2.686 [facility] s HAYES - 325.5447437 [address] 2021-11-22 2021-11-22 Outpatient R MARILU [facility] [id number] Univers 16:00:00 16:00:00 [facility] 2021-11-22 2021-11-22 Outpatient [facility] [id number] Univers 16:00:00 16:00:00 [facility] 2021-11-22 2021-11-22 Telephone [facility] 1.2.165.925 [id number] Univers 00:00:00 00:00:00 Radha SWEENEY 350.1.13.10 it y of MEDICINE 4.2.7.2.686 [place] CLINIC - 713.4010209 [address] 2021-11-22 2021-11-22 [facility] 1.2.437.961 [id number] 1558 Univers 00:00:00 00:00:00 Azalia HEALTH 350.1.13.10 it y of CANCER 4.2.7.2.[address] [facility] HAYES - [id number] [address] 2021-11-20 2021-11-20 Telephone [facility] 1.2.876.057 [id number] 1660 Univers 00:00:00 00:00:00 Azalia HEALTH 350.1.13.10 it y of CANCER 4.2.7.2.[address] [facility] HAYES - 456.3764429 [address] 2021-11-20 2021-11-20 Telephone [facility] 1.2.332.403 [id number] 2488 Univers 00:00:00 00:00:00 Azalia HEALTH 350.1.13.10 it y of CANCER 4.2.7.2.686 [facility] - [id number] Med ical [facility] [address] 2021-11-20 2021-11-20 Telephone MARCOS Berry 1.2.966.492 [id number] 3358 Univers 00:00:00 00:00:00 JOLANTA 350.1.13.[address] [facility] 4.2.7.2.686 [facility] [id number] [place] [address] 2021-11-15 2021-11-15 Outpatient Annalee CORLEY [facility] [id number] Univers 08:45:00 08:45:00 CAMILO guzmán [facility] 2021-11-15 2021-11-15 Outpatient [facility]alee [facility] [id number] Univers 08:45:00 08:45:00 [facility] 2021-11-14 2021-11-14 Outpatient [facility] CASSANDRA [id number] Univers 10:46:00 15:24:00 AZALIA guzmán [facility] 2021-11-14 2021-11-14 Hospital [facility] 1.2.840.114 [id number] Univers 10:46:00 15:24:00 Encounter Azalia HEALTH 350.1.13.10 ity of [place] 4.2.7.2.686 [facility] [phone] [address] ([facility]) 2021-11-14 2021-11-14 Surgery Marilu [facility] 1.2.840.114 [id number] Univers 11:43:00 13:33:00 Azalia SPECIALTY 350.1.13.10 ity of CARE 4.2.7.2.686 [facility] AT [id number] [place] krystal RAMIREZ 020 [facility] 2021-11-11 2021-11-11 Laboratory Only, Adc Test [facility] 1.2.840. 114 [id number] Univers 14:00:00 14:15:00 Only Azalia Michel 350.1.13.10 ity of [place] 4.2.7.2.686 [facility] [id number] [facility] [address] 2021-11-11 2021-11-11 Outpatient R MARILU [facility] [id number] Univers 14:00:00 14:00:00 AZALIA ramirez [facility] 2021-11-08 2021-11-08 Office Marilu [facility] 1.2.840.114 [id number] Univers 14:15:00 14:30:00 Visit Azalia [facility] 350.1.13.10 it y of CANCER [id number] [facility] - [phone] [place] [address] [address] 2021-11-08 2021-11-08 Outpatient R [facility] [id number] Univers 14:15:00 14:15:[address] [facility] 2021-11-08 2021-11-08 [facility] 1.2.840.114 [id number] Univers 00:00:00 00:00:00 Radha [place] [id number] it y of MEDICINE [id number] [place] [facility] - [phone] [facility] [address] [facility] 2021-11-04 2021-11-04 Outpatient [facility] [id number] Univers 11:00:00 11:00:00 AZALIA camryn [facility] 2021-10-26 2021-10-26 [facility] 1.2.840.114 [id number] Univers 00:00:00 00:00:00 Secure Msradha WHEELER [id number] ity Tess LUCAS [id number] [facility] s HAYES [phone] [facility] AND [place] [address] [facility] 2021-10-22 2021-10-22 [facility] [id number] Univers 00:00:00 00:00:00 Radha [place] [id number] it y of MEDICINE [id number] [place] [facility] - [phone] [facility] [address] [facility] 2021-10-17 2021-10-17 [facility] [id number] Univers 09:30:00 09:30:[address] [facility] 2021-10-05 2021-10-05 Outpatient R VEGA SKYLER [facility] [id number] Univers 11:30:00 11:30:[address] [facility] 2021-10-05 2021-10-05 [facility] 1.2.840.114 [id number] Univers 00:00:00 00:00:00 Radha [place] [id number] it of [facility] [id number] [facility] - [id number] [address] 2021-09-29 2021-09-29 Outpatient Annalee MORLEY [facility] [id number] Univers 08:30:00 08:30:[address] [facility] 2021-09-29 2021-09-29 Outpatient Annalee MORLEY [facility] [id number] Univers 08:30:00 08:30:[address] [facility] 2021-09-29 2021-09-29 Outpatient Annalee MORLEY [facility] [id number] Univers 08:30:00 08:30:[address] [facility] 2021-09-16 2021-09-16 Outpatient Annalee TRINIDAD [facility] [id number] Univers 14:30:00 14:30:[address] [facility] 2021-09-16 2021-09-16 Outpatient Annalee TRINIDAD [facility] [id number] Univers 14:30:00 14:30:[address] [facility] 2021-09-15 2021-09-15 [facility] 1.2.840.114 [id number] Univers 00:00:00 00:00:00 Curtis WHEELER [id number] it Tess LUCAS [id number] [facility] [phone] [address] [facility] 2021-09-06 2021-09-06 Office Amos [facility] 1.2.840.114 [id number] Univers 09:00:00 09:30:00 Visit Radha [place] [id number] it y of MEDICINE [id number] [place] [facility] - [phone] [facility] [address] [facility] 2021-09-06 2021-09-06 Outpatient Annalee TRINIDAD [facility] [id number] Univers 09:00:00 09:00:[address] [facility] 2021-09-06 2021-09-06 Outpatient R AMOS [facility] [id number] Univers 09:00:00 09:00:[address] [facility] 2021-09-06 2021-09-06 Orders Doctor JAVIER 1.2.840.114 [id number] Univers 00:00:00 00:00:00 Only Unassigned, JOLANTA 350.1.13.10 ity of [facility] 4.2.7.2.686 [place] [phone] [facility] [address] 2021-09-06 2021-09-06 [facility]phone [facility] 1.2.094.918 [id number] Univers 00:00:00 00:00:00 Curtis WHEELER 350.1.13.10 ity of [place] 4.2.7.2.686 [place] [facility] [phone] [facility] AND [place] [address] [facility] 2021-09-01 2021-09-01 [facility] 1.2.840.114 [id number] Univers 00:00:00 00:00:00 Radha SWEENEY 350.1.13.10 it y of MEDICINE 4.2.7.2.686 [place] CLINIC - [phone] [facility] 311 [facility] 2021-08-10 2021-08-10 Refjo[facility]ann [facility] 1.2.840.114 [id number] Univers 00:00:00 00:00:00 [facility] 350.1.13.10 i ty of PEDIATRIC 4.2.7.2.686 [place] [id number] [facility] [address] 2021-08-03 2021-08-03 [facility]ann [facility] 1.2.840.114 [id number] Univers 00:00:00 00:00:00 Radha SWEENEY 350.1.13.10 it y of MEDICINE 4.2.7.2.686 [place] CL[place]IC - [phone] [address] 2021-08-03 2021-08-03 [facility] 1.2.840.114 [id number] Univers 00:00:00 00:00:00 Radha SWEENEY 350.1.13.10 it y of MEDICINE 4.2.7.2.686 [place] CL[place]IC - [id number] [address] 2021-08-02 2021-08-02 [facility] 1.2.840.114 [id number] Univers 00:00:00 00:00:00 Radha SWEENEY 350.1.13.10 it y of MEDICINE 4.2.7.2.686 [place] CL[place]IC - [phone] [address] 2021-08-02 2021-08-02 Solis [facility] 1.2.840.114 [id number] Univers 00:00:00 00:00:00 [facility] 350.1.13.10 i ty of PEDIATRIC 4.2.7.2.686 Te [facility] [phone] [facility] [address] 2021-08-02 2021-08-02 Refjo[facility]ann [facility] 1.2.840.114 [id number] Univers 00:00:00 00:00:00 [place] MULTISPEC 350.1.13.10 ity of IALTY 4.2.7.2.686 [place] [facility] [phone] [facility] AND [place] [address] [facility] 2021-08-02 2021-08-02 Refjo[facility]ann M[facility] 1.2.840.114 [id number] Univers 00:00:00 00:00:00 Catalina SWEENEY 350.1.13.10 ity of MEDICINE 4.2.7.2.686 [place] CL[place]IC - [phone] [address] 2021-08-01 2021-08-01 Honey [facility] 1.2.451.973 [id number] Univers 00:00:00 00:00:00 Rene Mar MULTISPEC 350.1.13.10 ity of IALTY 4.2.7.2.686 [place] [phone] [facility] AND JAVIER [address] [facility]AB[facility] CL[facility]IC 2021-07-29 2021-07-[address] [facility] 1.2.840.114 [id number] Univers 12:53:28 23:59:00 Encounter Curtis RAHMANPEC 350.1.13.10 ity of [place] 4.2.7.2.686 [place] [phone] [facility] AND JAVIER [address] [facility]ES CLINIC 2021-07-29 2021-07-29 Outpatient R [facility] [id number] Univers 12:53:28 23:59:[address] [facility] 2021-07-29 2021-07-[address] [facility] 1.2.840.114 [id number] Univers 13:30:00 14:00:00 Visit Curtis RAHMANPEC 350.1.13.10 ity of [place]oot[place] PATELY 4.2.7.2.[address] HAYES [phone] [facility] AND JAVIER [address] [facility] 2021-07-29 2021-07-29 Outpatient R [facility] [id number] Univers 13:30:00 13:30:00 [facility] 2021-07-28 2021-07-[address] [facility] 1.2.753.555 [id number] Univers 00:00:00 00:00:00 Curtis RAHMANPEC 350.1.13.10 ity of [place] PAT[place] 4.2.7.2.[address] [facility] [phone] [facility] AND JAVIER [address] [facility] 2021-07-27 2021-07-[address] [facility] 1.2.581.873 [id number] Univers 00:00:00 00:00:00 Curtis RAHMANPEC 350.1.13.10 ity of [place] 4.2.7.2.686 [place] [phone] [facility] AND HERRERA [address] DIAB[facility]ES CLINIC 2021-07-20 2021-07-20 [facility] [id number] Univers 16:45:00 17:37:40 [facility] 2021-07-20 2021-07-20 Urgent Samina Booker A [facility] 1.2.840.114 [id number] Univers 16:19:24 17:37:40 Care Unknown, Attending EUSTIS 350.1.13.10 ity of PEDIATRIC 4.2.7.2.686 [place] [phone] [address] 2021-07-05 2021-07-05 Outpatient R PEYMAN [facility] [id number] Univers 10:00:00 10:00:00 CURTIS guzmán [facility] 2021-07-01 2021-07-01 Outpatient Annalee BOOKER [facility] [id number] Univers 16:00:00 14:32:17 [facility] 2021-07-01 2021-07-01 Nurse Nurse, Anthony Adult Urgent [facility] 1. 2.840.114 [id number] Univers 11:41:16 11:56:16 Visit Unknown, Attending EUSTIS 350.1.13.10 ity of PEDIATRIC 4.2.7.2.686 [facility] [phone] [address] 2021-06-30 2021-06-30 Telephone [facility] 1.2.522.216 [id number] Univers 00:00:00 00:00:00 Curtis WHEELER 350.1.13.10 ity of [place] IALTY 4.2.7.2.[address] [facility] HAYES [phone] [address] DIABETES CLINIC 2021-06-28 2021-06-28 Nurse Therapy, Clc Covid Infusion [facility] 1.2.840.114 [id number] Univers 10:23:31 11:23:31 Visit Tejinder Valles [facility] 350.1.13.10 ity of CLEAR 4.2.7.2.[address] [facility] DAWN [phone] [place] [address] Branch OFFICE BUILDING 2021-06-28 2021-06-28 Outpatient R SHABANA [facility] [id number] Univers 10:30:00 10:30:00 [facility] 2021-06-27 2021-06-27 Outpatient R AMOS [facility] [id number] Univers 09:00:00 09:00:[address] [facility] 2021-06-27 2021-06-27 Telemedici [facility] 1.2.840.114 [id number] Univers 08:22:01 08:52:01 ne Visit Radha SWEENEY 350.1.13.10 i ty of MEDICINE 4.2.7.2.686 [facility] [phone] [facility] [address] [place] 2021-06-25 2021-06-25 Urgent Ashley Raines [facility] 1.2.840.114 [id number] Univers 09:06:44 09:55:18 Care Unknown, Attending EUSTIS 350.1.13.10 ity of PEDIATRIC 4.2.7.2.686 Te [facility] [phone] [address] 2021-06-25 2021-06-25 Outpatient R OLU [facility] [id number] Univers 09:00:00 09:55:[address] o f [facility] 2021-06-06 2021-06-06 Urgent TalonMaria AEver Luke [facility] 1.2 .840.114 [id number] Univers 17:12:40 17:50:36 Care Unknown, Attending [place] 350.1.13.10 ity of Pediatric 4.2.7.2.686 [facility] [phone] [address] 2021-06-06 2021-06-06 Outpatient R RUDDY, [facility] [id number] Univers 17:15:00 17:15:[address] of [facility] 2021-06-06 2021-06-06 Telephone [facility] 1.2.153.482 [id number] Univers 00:00:00 00:00:00 Curtis WHEELER 350.1.13.10 ity of [place] 4.2.7.2.686 [facility] [phone] [address] DIABETES CLINIC 2021-06-04 2021-06-04 [facility]ann [facility] 1.2.840.114 [id number] Univers 00:00:00 00:00:00 Radha SWEENEY 350.1.13.10 it y of MEDICINE 4.2.7.2.686 [place] CLINIC - [phone] [address] 2021-05-31 2021-05-31 Solis Trinidad MOTANYA 1.2.840.114 [id number] Univers 00:00:00 00:00:00 Radha SWEENEY 350.1.13.10 it y of MEDICINE 4.2.7.2.686 [place] CLINIC - [phone] [address] 2021-05-20 2021-05-20 Telephone Peyman [facility] 1.2.441.907 [id number] Univers 00:00:00 00:00:00 Curtis WHEELER 350.1.13.10 ity [place] 4.2.7.2.[address] [facility] [phone] [address] DIABETES CLINIC 2021-05-03 2021-05-03 Vessel Scrapper Lab, [facility] [address] [facility] 1 .2.840.114 [id number] Univers 09:27:09 09:42:09 Visit Barrington Venegas 350.1.13.10 ity of MEDICINE 4.2.7.2.686 [place] CL[place]IC - [phone] [address] 2021-05-03 2021-05-03 Vessel Scrapper Lab, [facility] [address] [facility] 1 .2.840.114 [id number] Univers 09:27:09 09:42:09 Visit Barrington Venegas 350.1.13.10 ity of MEDICINE 4.2.7.2.686 [place] CL[place]IC - [phone] [address] 2021-05-03 2021-05-03 Outpatient Annalee MENDEZ [facility] [id number] Univers 08:00:00 08:00:00 CATALINA guzmán [facility] 2021-04-28 2021-04-28 Outpatient Annalee MORLEY [facility] [id number] Univers 14:00:00 14:00:00 CURTIS guzmán [facility] 2021-04-28 2021-04-28 Telephone Peyman [facility] 1.2.315.292 [id number] Univers 00:00:00 00:00:00 Curtis WHEELER 350.1.13.10 ity of [place] 4.2.7.2.686 [place] [phone] [facility] [address] DIABETES CLINIC 2021-04-25 2021-04-25 Office Andrea [facility] 1.2.840.114 [id number] Univers 15:41:06 16:11:06 Visit Catalina SWEENEY 350.1.13.10 ity of MEDICINE 4.2.7.2.686 [place] CL[place]IC - [phone] [address] 2021-04-25 2021-04-25 Outpatient R [facility] [id number] Univers 13:30:00 13:30:00 [facility] 2021-04-19 2021-04-19 Outpatient [facility] [id number] Univers 11:30:00 11:30:[address] [facility] 2021-04-16 2021-04-16 [facility] 1.2.840.114 [id number] Univers 00:00:00 00:00:00 Radha SWEENEY 350.1.13.10 it y of MEDICINE 4.2.7.2.686 [place] CL[place]IC - [phone] [address] 2021-04-16 2021-04-16 Refjo[facility]ann [facility] 1.2.840.114 [id number] Univers 00:00:00 00:00:00 Radha SWEENEY 350.1.13.10 it y of MEDICINE 4.2.7.2.686 [place] CL[place]IC - [phone] [address] 2021-03-29 2021-03-29 Emergency Ivy, Brady W TRAUMA 1.2.840.11 [id number] Univers 16:04:00 23:55:00 Amando De La Rosa CENTER 350.1.13.10 ity of 4.2.7.2.686 [place] [phone] [facility] [address] 2021-03-28 2021-03-28 Letter JAVIER Parker 1.2.840.114 [id number] Univers 00:00:00 00:00:00 (Out) Norma STOVER 350.1.13.10 it y of HOSPITAL 4.2.7.2.686 [place] [phone] [facility] [address] 2021-03-27 2021-03-27 Telephone Jhony [facility] 1.2.766.952 [id number] Univers 00:00:00 00:00:00 [facility] 350.1.13.10 it y of Pediatric 4.2.7.2.686 [place] [id number] [facility] [address] 2021-03-26 2021-03-26 Urgent [facility] 1.2.840.114 [id number] Univers 16:32:41 18:13:07 Care [facility] 350.1.13.10 it y of Pediatric 4.2.7.2.686 [place] [phone] [facility] [address] 2021-03-26 2021-03-26 Outpatient R JHONY [facility] [id number] Univers 16:30:00 16:30:00 [facility] 2021-03-25 2021-03-25 Outpatient R PEYMAN [facility] [id number] Univers 08:00:00 08:00:00 CURTIS camryn [facility] 2021-03-24 2021-03-24 Telemedici [facility] 1.2.840.114 [id number] Univers 15:42:41 16:12:41 ne Visit [place] MULTISPEC 350.1.13.10 ity [facility] 4.2.7.2.686 [facility] [phone] [facility] [place] [address] [address] DIABETES CLINIC 2021-03-24 2021-03-24 Outpatient R LUNA [facility] [id number] Univers 16:00:00 16:00:[address] [facility] 2021-03-24 2021-03-24 Outpatient R PEYMAN [facility] [id number] Univers 09:30:00 09:30:00 CURTIS guzmán [facility] 2021-03-24 2021-03-24 Telephone [facility] 1.2.457.782 [id number] Univers 00:00:00 00:00:00 Curtis WHEELER 350.1.13.10 ity of [place] I[place] 4.2.7.2.686 [place] [phone] [facility] AND [place] [address] [facility] 2021-03-21 2021-03-21 Vessel Scrapper Vtc-Lab [facility] 1.2.840.114 [id number] Univers 14:56:09 15:11:09 Visit New CarrascoPEC 350.1.13 .10 ity of IALTY 4.2.7.2.686 [place] [phone] [facility] AND [place] [address] DI[facility]ES [facility] 2021-03-21 2021-03-21 Outpatient R LUNA [facility] [id number] Univers 14:45:00 14:45:[address] [facility] 2021-03-21 2021-03-21 Telephone [facility] 1.2.533.[id number] [facility] 00:00:00 00:00:00 Curtis WHEELER 350.1.13.10 ity of [place] AMANDAY 4.2.7.2.686 [place] [id number] [address] DIABETES CLINIC 2021-03-02 2021-03-02 Solis Trinidad [facility] 1.2.840.114 [id number] Univers 00:00:00 00:00:00 Radha SWEENEY 350.1.13.10 it y of MEDICINE 4.2.7.2.686 [place] CLINIC - [id number] [address] 2021-02-22 2021-02-22 Office Luna [facility] 1.2.840.114 [id number] Univers 13:46:43 14:41:46 Visit New WHEELER 350.1.13.10 ity of IALTY 4.2.7.2.686 [place] [phone] [facility] [address] DIABETES CLINIC 2021-02-22 2021-02-22 Outpatient Annalee CARRASCO [facility] [id number] Univers 14:00:00 14:00:[address] [facility] 2021-02-16 2021-02-16 Telephone Amos [facility] 1.2.087.929 [id number] Univers 00:00:00 00:00:00 Radha SWEENEY 350.1.13.10 it y of MEDICINE 4.2.7.2.686 [place] CLINIC - [phone] [address] 2021-02-12 2021-02-12 Urgent Care, Gal Adult Urgent [facility] 1.2 .840.114 [id number] Univers 13:51:08 15:01:56 Care Unknown, [facility] 350.1.13.10 ity of Olu Ashley Pediatric 4.2.7.2.686 [facility] [phone] [facility] [address] 2021-02-12 2021-02-12 Outpatient R RUDDY [facility] [id number] Univers 13:45:00 13:45:00 ATTENDING itcamryn [facility] 2021-02-12 2021-02-12 Telephone [facility] 1.2.060.934 [id number] Univers 00:00:00 00:00:00 Curtis WHEELER 350.1.13.10 ity Tess LUCAS 4.2.7.2.686 [facility] [id number] [facility] AND [place] [address] DIABETES CLINIC 2021-02-11 2021-02-11 Telephone [facility] 1.2.084.848 [id number] Univers 00:00:00 00:00:00 Radha SWEENEY 350.1.13.10 it y of MEDICINE 4.2.7.2.686 [place] CL[place]IC - [phone] [address] 2021-02-08 2021-02-08 Outpatient R PEYMAN [facility] [id number] Univers 09:00:00 09:00:00 CURTIS guzmán [facility] 2021-02-08 2021-02-08 Telephone [facility] 1.2.897.461 [id number] Univers 00:00:00 00:00:00 Radha SWEENEY 350.1.13.10 it y of MEDICINE 4.2.7.2.686 [place] as CLINIC - [phone] [address] 2021-02-01 2021-02-01 Telephone [facility] 1.2.134.711 [id number] Univers 00:00:00 00:00:00 Curtis WHEELER 350.1.13.10 ity of [place] HILARYANA 4.2.7.2.686 [place] [facility] [id number] [facility] AND [place] [address] DIABETES CLINIC 2021-01-31 2021-01-31 Orders Doctor HERRERA 1.2.840.114 [id number] Univers 00:00:00 00:00:00 Only Unassigned, JOLANTA 350.1.13.10 ity [facility] 4.2.7.2.686 [place] [phone] [facility] [address] 2021-01-30 2021-01-30 Refjo-ann [facility] 1.2.840.114 [id number] Univers 00:00:00 00:00:00 Radha SWEENEY 350.1.13.10 it y of MEDICINE 4.2.7.2.686 [place] CL[place]IC - [phone] [address] 2021-01-25 2021-01-25 Outpatient Annalee TRINIDAD [facility] [id number] Univers 13:30:00 13:30:[address] [facility] 2021-01-24 2021-01-24 Office [facility] 1.2.840.114 [id number] Univers 15:50:41 16:59:23 Visit Radha SWEENEY 350.1.13.10 it y of MEDICINE 4.2.7.2.686 [place] CL[place]IC - [phone] [address] 2021-01-24 2021-01-24 Outpatient Annalee TRINIDAD [facility] [id number] Univers 16:00:00 16:00:[address] [facility] 2021-01-20 2021-01-20 Outpatient Annalee TRINIDAD [facility] [id number] Univers 09:00:00 09:00:[address] [facility] 2021-01-11 2021-01-11 [facility] [id number] Univers 09:30:00 09:30:[address] [facility] 2021-01-07 2021-01-07 Outpatient R MARILU, [facility] [id number] Univers 11:30:00 11:30:00 AZALIA guzmán of [facility] 2021-01-05 2021-01-05 Telephone Trinidad [facility] 1.2.214.655 [id number] Univers 00:00:00 00:00:00 Radha FAMILY 350.1.13.10 it y of MEDICINE 4.2.7.2.686 [place] CL[place]IC - [phone] [address] 2020-12-31 2020-12-31 Refill Doctor [facility] 1.2.840.114 [id number] Univers 00:00:00 00:00:00 Unassigned, MULTISPEC 350.1.13.10 ity of [place] [facility] 4.2.7.2.686 [place] [facility] [phone] [facility] AND [address] DIABETES CLINIC 2020-12-31 2020-12-31 Refill Emeli [facility] 1.2.840.114 [id number] Univers 00:00:00 00:00:00 Cait SWEENEY 350.1.13.10 it y of MEDICINE 4.2.7.2.686 [place] CL[place]IC - [id number] [address] 2020-12-31 2020-12-31 Refill Doctor [facility] 1.2.840.114 [id number] Univers 00:00:00 00:00:00 Unassigned, FAMILY 350.1.13.10 ity of [place] MEDICINE 4.2.7.2.686 [place] CL[place]IC - [id number] [address] 2020-12-30 2020-12-30 Urgent Monika Manley F [facility] 1. 2.840.114 [id number] Univers 17:19:08 17:34:08 Care Unknown, Attending [place] 350.1.13.10 ity of Pediatric 4.2.7.2.686 Te [facility] [id number] [address] 2020-12-30 2020-12-30 Outpatient R RUDDY, [facility] [id number] Univers 17:15:00 17:15:[address] [facility] 2020-12-24 2020-12-24 Outpatient R MARILU [facility] [id number] Univers 10:30:00 10:30:[address] [facility] 2020-12-24 2020-12-24 Orders Doctor JAVIER 1.2.840.114 [id number] Univers 00:00:00 00:00:00 Only Unassigned, JOLANTA 350.1.13.10 ity of [facility] 4.2.7.2.686 [place] [phone] [facility] [address] 2020-12-21 2020-12-[address] [facility] 1.2.840.114 [id number] Univers 09:12:04 10:15:32 Visit Curtis WHEELER 350.1.13.10 ity of [place] 4.2.7.2.686 [place] [id number] [facility] AND [place] [address] [facility]ES [facility]IC 2020-12-21 2020-12-21 Outpatient [facility] [id number] Univers 09:30:00 09:30:[address] [facility] 2020-12-20 2020-12-20 Telephone [facility] 1.2.509.199 [id number] Univers 00:00:00 00:00:00 Curtis WHEELER 350.1.13.10 ity of Scooternishant PATEL 4.2.7.2.686 [place] [phone] [facility] AND [place] [address] [facility] 2020-12-14 2020-12-14 Office BRISEIDA Corley 1.2.244.451 [id number] Univers 08:55:44 08:56:16 Visit Camilo Cowan 350.1.13.10 i ty [facility] 4.2.7.2.686 [place] BANK [phone] [facility] BLDG. [address] 2020-12-14 2020-12-14 Outpatient R JORY [facility] [id number] Univers 08:15:00 08:15:00 CAMILO guzmán [facility] 2020-12-14 2020-12-14 Office BRISEIDA Corley 1.2.584.122 [id number] Univers 07:58:10 08:13:10 Visit Camilo Cowan 350.1.13.10 i ty of [facility] 4.2.7.2.686 [place] BANK [phone] [facility] [address]LDG. [address] 2020-12-14 2020-12-14 Outpatient [facility] [id number] Univers 08:00:00 08:00:00 CAMILO itcamryn [facility] 2020-12-13 2020-12-13 Outpatient [facility] [id number] Univers 11:00:00 11:00:00 [facility] 2020-12-03 2020-12-03 Office Jordan, [facility] Resident UNIVERSIT 1.2.8 40.114 [id number] Univers 08:06:52 09:07:25 Visit Jenny Avila HEALTH 350.1.13.10 ity of CLINICS 4.2.7.2.686 [place] [id number] [facility] [address] 2020-12-03 2020-12-03 Outpatient R [facility] [id number] Univers 08:00:00 08:00:[address] [facility] 2020-12-01 2020-12-01 Solis [facility] 1.2.840.114 [id number] Univers 00:00:00 00:00:00 Radha FAMILY 350.1.13.10 it y of MEDICINE 4.2.7.2.686 [place] - [id number] [facility] [address] [facility] 2020-11-26 2020-11-26 Office BRISEIDA Guadalupe [id number] Univers 09:13:13 09:43:13 Visit [facility] 350.1.13.10 [place] [id number] [facility] [address] 2020-11-26 2020-11-26 [facility] [id number] Univers 09:00:00 09:00:00 TA[address] ve[address] o f [facility] 2020-11-15 2020-11-15 [facility] [id number] Univers 11:15:00 11:15:[address] [facility] 2020-11-09 2020-11-09 Office [facility] 1.2.840.114 [id number] Univers 16:30:40 17:00:40 Visit Radha [place] 350.1.13.10 it y of MEDICINE 4.2.7.2.686 [place] - [id number] [address] 2020-11-09 2020-11-09 Outpatient R [facility] [id number] Univers 16:30:00 16:30:00 [facility] 2020-11-02 2020-11-02 [facility] 1.2.840.114 [id number] Univers 00:00:00 00:00:00 Outreach [facility] 350.1.13.10 i ty of [facility] [place] [id number] Mn dical [address] 2020-10-29 2020-10-29 Telephone [facility] [id number] Univers 00:00:00 00:00:00 Radha [place] 350.1.13.10 it y of MEDICINE 4.2.7.2.686 [place] - [id number] [address] 2020-10-28 2020-10-28 [facility] 1.[facility].840.114 [id number] Univers 13:00:00 23:59:00 Encounter Radha Cowan [facility] 350.1.13.10 ity of [place] [id number] [facility] [address] 2020-10-28 2020-10-28 Outpatient R [facility] [id number] Univers 00:00:00 00:00:[address] [facility] 2020-10-22 2020-10-22 Telephone [facility] [id number] Univers 00:00:00 00:00:00 Radha [place] 350.1.13.10 it y of MEDICINE 4.2.7.2.686 [place] - [phone] [address] 2020-10-21 2020-10-21 [facility] 1.2.840.114 [id number] Univers 08:04:47 08:59:28 Visit Radha [place] 350.1.13.10 it y of MEDICINE 4.2.7.2.686 [place] - [id number] [address] 2020-10-21 2020-10-21 Outpatient R AMOSST. [facility] [id number] Univers 08:00:00 08:00:[address] [facility] 2020-10-18 2020-10-18 [facility] 1.2.840.114 [id number] Univers 07:52:00 11:07:00 Encounter Curtis ROLDAN 350.1.13.10 ity of [facility] 4.2.7.2.686 [place] C[place] AT [phone] Mn dical VICTOR 020 [facility] 2020-10-18 2020-10-18 Orders Doctor JAVIER 1.2.840.114 [id number] Univers 00:00:00 00:00:00 Only Unassigned, JOLANTA 350.1.13.10 ity of [place] [facility] 4.2.7.2.686 [place] [phone] [address] 2020-10-15 2020-10-15 Laboratory Only, Pcp Test [facility] 1.2.840. 114 [id number] Univers 09:59:05 10:14:05 Only Curtis Morley PRIMARY 350.1.13.1 0 ity of CARE 4.2.7.2.686 [place] [facility] [phone] Mn dical [address] 2020-10-15 2020-10-15 Outpatient R PEYMAN [facility] [id number] Univers 10:00:00 10:00:00 CURTIS guzmán [facility] 2020-10-14 2020-10-14 Telephone [facility] 1.2.678.145 [id number] Univers 00:00:00 00:00:00 Radha SWEENEY 350.1.13.10 it y of MEDICINE 4.2.7.2.686 [place] CL[place]IC - [phone] [facility] [address] [facility] 2020-10-14 2020-10-14 Telephone [facility] 1.2.792.760 [id number] Univers 00:00:00 00:00:00 Radha SWEENEY 350.1.13.10 it y of MEDICINE 4.2.7.2.686 [place] - [phone] [facility] [address] [facility] 2020-10-14 2020-10-14 Telephone [facility] 1.2.840.114 [id number] Univers 00:00:00 00:00:00 [facility] 350.1.13.10 ity of Cancer 4.2.7.2.686 [place] [facility] - [phone] [address] 2020-10-13 2020-10-13 Office [facility] 1.2.840.114 [id number] Univers 08:47:44 10:04:25 Visit Radha SWEENEY 350.1.13.10 it y of MEDICINE 4.2.7.2.686 [place] CL[place]IC - [phone] [address] 2020-10-13 2020-10-13 Outpatient R [facility] [id number] Univers 09:00:00 09:00:00 RADHA ity [facility] 2020-10-11 2020-10-11 Outpatient R [facility] [id number] Univers 11:15:00 11:15:00 EMILY ity [facility] 2020-10-06 2020-10-06 Patient Doctor JAVIER 1.2.840.114 [id number] Univers 00:00:00 00:00:00 Secure Msg Unassigned, JOLANTA 350.1.13.10 ity of [place] [facility] 4.2.7.2.686 [place] [phone] [address] 2020-09-24 2020-09-24 Aiyana Llanes [facility] 1.2.840.114 [id number] Univers 00:00:00 00:00:00 Y HEALTH 350.1.13.10 i ty of CLINICS 4.2.7.2.686 [place] [phone] [facility] [address] 2020-09-23 2020-09-[address] [facility] 1.2.840.114 [id number] Univers 08:43:07 09:51:11 Visit Curtis LIAM 350.1.13.10 ity of [facility] 4.2.7.2.686 [place] [phone] [facility] [address] [facility] 2020-09-23 2020-09-23 Outpatient [facility] [id number] Univers 09:00:00 09:00:[address] [facility] 2020-09-23 2020-09-23 [facility] 1.2.840.114 [id number] Univers 00:00:00 00:00:00 Surgery Chan WHEELER 350.1.13.10 ity of [facility] 4.2.7.2.686 [facility] [phone] [facility] AND [address] DIABETES CLINIC 2020-09-17 2020-09-17 Outpatient R [facility] [id number] Univers 14:30:00 14:30:[address] [facility] 2020-09-13 2020-09-13 Letter JAVIER Parker 1.2.840.114 [id number] Univers 00:00:00 00:00:00 (Out) Norma STOVER 350.1.13.10 it [facility] of [facility] 4.2.7.2.686 [place] [phone] [facility] [address] 2020-09-11 2020-09-[address] [facility] 1.2.840.114 [id number] Univers 11:21:37 11:36:37 Care Ashley Oswald 350.1.13.10 i ty of Pediatric 4.2.7.2.686 [place] [phone] [facility] [address] 2020-09-11 2020-09-11 Outpatient R [facility] [id number] Univers 11:30:00 11:30:00 ASHLEY guzmán o f [facility] 2020-09-08 2020-09-08 [facility] 1.2.840.114 [id number] Univers 19:59:31 20:28:35 Care [facility] [place] 350.1.13.10 it y of Pediatric 4.2.7.2.686 [place] [phone] [facility] [address] 2020-09-08 2020-09-08 Outpatient R JHONY [facility] [id number] Univers 19:45:00 19:45:00 [facility] 2020-09-02 2020-09-02 Vessel Scrapper [facility] UNIVERSIT 1.2.840.114 [id number] Univers 16:33:28 16:48:28 Visit Skyler Ferrair [facility] 350.1.13 .10 ity of CLINICS 4.2.7.2.686 [place] [phone] [facility] [address] 2020-09-02 2020-09-02 Office DARCI Ferrari 1.2.840.114 [id number] Univers 16:03:20 16:33:20 Visit Skyler [facility] 350.1.13.10 ity of CLINICS 4.2.7.2.686 [place] [phone] [facility] [address] 2020-09-02 2020-09-02 Outpatient R SKYLER FERRARI [facility] [id number] Univers 16:00:00 16:00:[address] [facility] 2020-08-27 2020-08-27 Office [facility] 1.2.043.217 [id number] Univers 10:22:19 11:41:08 Visit [facility] 350.1.13.10 ity of Cancer 4.2.7.2.686 [place] - [phone] Med ical [facility] [address] 2020-08-27 2020-08-27 Outpatient R KENDALL [facility] [id number] Univers 10:30:00 10:30:00 ORPHEUS ity [facility] 2020-08-27 2020-08-27 Orders Doctor HERRERA 1.2.840.114 [id number] Univers 00:00:00 00:00:00 Only Unassigned, JOLANTA 350.1.13.10 ity of [facility] 4.2.7.2.686 [place] [phone] [facility] [address] 2020-08-20 2020-08-20 Outpatient R KENDALL [facility] [id number] Univers 13:00:00 13:00:00 ORJENNIFERMARI ity [facility] 2020-08-19 2020-08-19 Office BRISEIDA Mixon 1..840.114 7 [id number] Univers 10:34:33 11:38:15 Visit [facility] 350.1.13.10 i ty of CLINICS 4.2.7.2.686 [place] [id number] [place] 987[address] 2020-08-19 2020-08-19 Outpatient R ORAL [facility] [id number] Univers 10:30:00 10:30:00 [facility] 2020-08-17 2020-08-17 Patient Matsandhya [facility] 1..840.114 [id number] Univers 00:00:00 00:00:00 Secure [facility] 350.1.13.10 ity of [place] 4.2.7.2.686 [place] [phone] [place] [address] 2020-08-12 2020-08-12 Outpatient R SKYLER FERRARI [facility] [id number] Univers 09:30:00 09:30:00 [facility] 2020-07-31 2020-07-31 Urgent Olu [facility] 1..840.114 [id number] Univers 16:16:45 16:31:45 Care Ashley [place] 350.1.13.10 i ty of Pediatric 4.2.7.2.686 [place] [phone] [address] 2020-07-31 2020-07-31 Outpatient R OLU [facility] [id number] Univers 16:15:00 16:15:00 ASHLEY guzmán o f [facility] 2020-07-31 2020-07-31 Orders Doctor HERRERA 1..840.114 [id number] Univers 00:00:00 00:00:00 Only Unassigned, JOLANTA 350.1.13.10 ity of [place] [facility] 4.2.7.2.686 [place] [phone] [facility] [address] 2020-07-29 2020-07-29 Patient Doctor JAVIER 1.2.840.114 [id number] Univers 00:00:00 00:00:00 Secure Unassigned, JOLANTA 350.1.13.10 ity of [place] [facility] 4.2.7.2.686 [place] [phone] [facility] [address] 2020-07-28 2020-07-28 Urgent JhonySamina A [facility] 1.2.840.114 [id number] Univers 16:05:38 16:20:38 Care Unknown, [facility] 350.1.13.10 ity of Pediatric 4.2.7.2.686 [place] [phone] [facility] [address] 2020-07-28 2020-07-28 Outpatient R UNKNOWN, [facility] [id number] Univers 16:15:00 16:15:[address] of [facility] 2020-07-27 2020-07-27 Telephone [facility] 1.2.401.779 [id number] Univers 00:00:00 00:00:00 Radha FAMILY 350.1.13.10 it y of MEDICINE 4.2.7.2.686 [place] CL[place] - [phone] [address] 2020-07-27 2020-07-27 Telephone [facility] 1.2.614.641 [id number] 0180 Univers 00:00:00 00:00:00 Radha FAMILY 350.1.13.10 it y of MEDICINE 4.2.7.2.686 [place] CL[place] - [phone] [address] 2020-07-27 2020-07-27 Telephone [facility] 1.2.270.063 [id number] [id number] Univers 00:00:00 00:00:00 Radha FAMILY 350.1.13.10 it y of MEDICINE 4.2.7.2.686 [place] - [phone] [address] 2020-07-23 2020-07-23 Office Aiyana Hollingsworth [facility] 1.2.840.114 [id number] Univers 14:42:56 15:29:43 Visit Y HEALTH 350.1.13.10 i ty of CLINICS 4.2.7.2.686 [place] [id number] [facility] [address] 2020-07-23 2020-07-23 Outpatient R AIYANA HOLLINGSWORTH [facility] [id number] Univers 14:45:00 14:45:[address] [facility] 2020-07-23 2020-07-23 Ancillary Maki Jacobo [facility] 1.2.840.114 [id number] Univers 10:06:48 10:46:48 Visit Brady Kang PRIMARY 350.1.13.10 ity of CARE 4.2.7.2.686 [place] [id number] [address] 2020-07-23 2020-07-23 Telephone [facility] 1.2.381.997 [id number] Univers 00:00:00 00:00:00 Radha FAMILY 350.1.13.10 it y of MEDICINE 4.2.7.2.686 [place] - [phone] [facility] [address] [facility] 2020-07-22 2020-07-22 Nurse Bessie Alexandre 1.2.840.114 [id number] Univers 00:00:00 00:00:00 Triage JOLANTA 350.1.13.10 it y of HOSPITAL 4.2.7.2.686 [place] [id number] [facility] [address] 2020-07-17 2020-07-17 Hospital Vega [facility] 1.2.949.597 [id number] Univers 12:40:52 23:59:00 Encounter Skyler [facility] 350.1.13.10 ity of [place].2.7.2.686 [place] [phone] [facility] [address] (CLC) 2020-07-17 2020-07-17 Outpatient SKYLER DOUGHERTY [facility] [id number] Univers 12:40:52 23:59:00 [address]ARI ity of [facility] 2020-07-16 2020-07-16 Office Fellow, Cardiology UNIVERSIT 1.2.8 40.114 [id number] Univers 13:30:27 14:23:07 Visit Taurus Guadalupe HEALTH 350.1.13.10 ity of CLINICS 4.2.7.2.686 [place] [id number] [facility] [address] 2020-07-16 2020-07-16 Outpatient R BENJAMIN [facility] [id number] Univers 13:30:00 13:30:00 TAURUS ity o f [facility] 2020-07-15 2020-07-15 Outpatient SKYLER DOUGHERTY [facility] [id number] Univers 12:00:00 12:00:00 SKYLER FERRARI itcamryn [facility] 2020-07-13 2020-07-13 Office Justin [facility] 1.2.840.114 [id number] Univers 10:03:54 12:32:51 Visit Octavio Vidal [facility] 350.1.13.10 it y of MEDICINE 4.2.7.2.686 [place] - [phone] [address] 2020-07-13 2020-07-13 Outpatient R JUSTIN [facility] [id number] Univers 10:10:00 10:10:00 OCTAVIO guzmán [facility] 2020-07-13 2020-07-13 Ancillary Bishop Rossa [facility] 1.2. 840.114 [id number] Univers 08:09:29 09:09:29 Visit Brady Kang [facility] 350.1.13.10 ity of CARE 4.2.7.2.686 [place] [phone] [facility] [address] 2020-07-13 2020-07-13 Outpatient Annalee KANG [facility] [id number] Univers 08:00:00 08:00:00 BRADY guzmán [facility] 2020-06-30 2020-06-30 Office BRISEIDA Ferrari 1.2.840.114 [id number] Univers 15:35:16 16:05:16 Visit Skyler [facility] 350.1.13.10 ity of CLINICS 4.2.7.2.686 [place] [id number] [facility] [address] 2020-06-30 2020-06-30 Outpatient SKYLER DOUGHERTY [facility] [id number] Univers 15:30:00 15:30:00 SYKLER [facility]ERR[facility] 2020-06-30 2020-06-30 Office Jocelyn [facility] 1.2.840.114 [id number] Univers 09:49:13 10:57:25 Visit Lucille SWEENEY 350.1.13.10 i ty of MEDICINE 4.2.7.2.686 [place] - [id number] [address] 2020-06-25 2020-06-25 Office EdelTonyha [facility] 1..840.114 7 [id number] Univers 14:51:00 16:02:06 Visit Y HEALTH 350.1.13.10 i ty of CLINICS 4.2.7.2.[place] [id number] [address] 2020-06-25 2020-06-25 Outpatient R EDEL AIYANA [facility] [id number] Univers 15:00:00 15:00:00 ity [facility] 2020-06-23 2020-06-23 Telephone [facility] 1..247.699 [id number] Univers 00:00:00 00:00:00 Radha FAMILY 350.1.13.10 it y of MEDICINE 4.2.7.2.686 [place] - [phone] [address] 2020-06-22 2020-06-22 Outpatient Annalee KANG [facility] [id number] Univers 08:00:00 08:00:[address] [facility] 2020-06-22 2020-06-22 Refill Doctor [facility] 1..840.114 [id number] Univers 00:00:00 00:00:00 Unassigned, FAMILY 350.1.13.10 ity of [place] MEDICINE 4.2.7.2.686 [place] CL[place]IC - [id number] [address] 2020-06-14 2020-06-14 Office [facility] 1.2.840.114 [id number] Univers 12:54:45 14:42:06 Visit Lucille SWEENEY 350.1.13.10 i ty of MEDICINE 4.2.7.2.686 [place] - [id number] [address] 2020-06-14 2020-06-14 Outpatient R JOCELYN, [facility] 1029 [id number] Univers 13:00:00 13:00:[address] [facility] 2020-06-07 2020-06-07 Office Trinidad [facility] 1.2.840.114 [id number] Univers 08:59:10 10:09:23 Visit Radha SWEENEY 350.1.13.10 it y of MEDICINE 4.2.7.2.686 [place] CL[place]IC - [id number] [address] 2020-06-07 2020-06-07 [facility] [id number] Univers 09:00:00 09:00:00 RADHA guzmán [facility] 2020-06-07 2020-06-07 Patient Doctor UN[facility]ERS[facility] 1.2.992.338 [id number] Univers 00:00:00 00:00:00 Secure Msg Unassigned, Y HEALTH 350.1.13.10 ity of [place] CLINICS 4.2.7.2.[place] [phone] [facility] [address] 2020-06-05 2020-06-05 Telephone JAVIER Ace 1.2.060.337 [id number] Univers 00:00:00 00:00:00 Yiyogi STOVER 350.1.13.10 it y of HOSPITAL 4.2.7.2.686 [place] [id number] [facility] [address] 2020-06-05 2020-06-05 Telephone BRISEIDA Ace 1.2.840.114 [id number] Univers 00:00:00 00:00:00 Yiharn Y HEALTH 350.1.13.10 i ty of CLINICS 4.2.7.2.[place] [phone] [facility] [address] 2020-06-05 2020-06-05 Telephone JAVIER Grigsby 1.2.840.114 [id number] Univers 00:00:00 00:00:00 Tony STOVER 350.1.13.10 it y of HOSPITAL 4.2.7.2.686 [place] [phone] [address] 2020-06-04 2020-06-04 Office Jordan [facility] Resident UNIVERSIT 1.2.8 40.114 [id number] Univers 15:21:29 16:31:00 Visit Keri Yee Y HEALTH 350.1.13.10 ity of CLINICS 4.2.7.2.[place] [phone] [address] 2020-06-04 2020-06-04 Outpatient R [facility] [id number] Univers 15:30:00 15:30:[address] [facility] 2020-06-03 2020-06-03 Office BRISEIDA Mixon 1.2.840.114 [id number] Univers 10:01:28 10:31:28 Visit Micheline Y HEALTH 350.1.13.10 i ty of CLINICS 4.2.7.2.[place] [id number] [address] 2020-06-03 2020-06-03 [facility] [id number] Univers 10:00:00 10:00:[address] [facility] 2020-06-02 2020-06-02 Patient [facility] 1.2.840.114 [id number] Univers 00:00:00 00:00:00 Secure Msg Norbert Vidal SPECIALTY 350.1.13.10 ity of CARE 4.2.7.2.686 [place] CENTER AT [phone] [place] 451822 [facility] 2020-05-31 2020-05-31 Telephone BRISEIDA Mixon 1.2.840.114 [id number] Univers 00:00:00 00:00:00 Micheline Y HEALTH 350.1.13.10 i ty of CLINICS 4.2.7.2.[place] [id number] [address] 2020-05-31 2020-05-31 Telephone Ankita, UN[facility]ERS[facility] 1.2.840.114 [id number] Univers 00:00:00 00:00:00 Patient Y HEALTH 350.1.13.10 i ty of Does Not CLINICS 4.2.7.2.686 [place] Have A [phone] [address] 2020-05-28 2020-05-28 [facility] 1.2.840.114 [id number] Univers 08:52:00 12:40:00 Encounter Norbert [facility] 350.1.13.10 ity of [place].2.686 [place] [phone] [address] ([facility]) 2020-05-28 2020-05-28 Orders Doctor JAVIER 1.2.840.114 [id number] Univers 00:00:00 00:00:00 Only Unassigned, JOLANTA 350.1.13.10 ity of [place] [facility] 4.2.7.2.686 [place] [id number] [address] 2020-05-25 2020-05-25 Vessel Scrapper Lab, Gal [facility] [address] [facility] 1 .2.840.114 [id number] Univers 08:25:23 08:40:23 Visit CorbettRoyal Dennistashia S[place] 350.1.13.1 0 ity of MEDICINE 4.2.7.2.686 [place] CL[place]IC - [id number] [address] 2020-05-25 2020-05-25 Outpatient R SOLIS [facility] [id number] Univers 08:30:00 08:30:00 GORDY itcamryn [facility] 2020-05-24 2020-05-24 Laboratory Only, Pcp Test [facility] 1.2.840. 114 [id number] Univers 08:26:48 08:41:48 Only Norbert Diaz PRIMARY 350.1.13.10 ity of CARE 4.2.7.2.686 [place] [id number] [facility] [address] 2020-05-24 2020-05-24 Outpatient R NORBERT DIAZ [facility] 1 [id number] Univers 08:30:00 08:30:00 NORBERT DIAZ ity [facility] 2020-05-17 2020-05-17 Patient Emeli [facility] 1.2.840.114 [id number] Univers 00:00:00 00:00:00 Secure Msg Cait PRIMARY 350.1.13.10 ity of CARE 4.2.7.2.686 [place] [id number] Mn dical [address] 2020-05-14 2020-05-14 Vessel Scrapper Lab, Gal c [address] [facility] 1 .2.840.114 [id number] Univers 13:06:12 13:21:12 Visit Elder Tena 350.1.13.1 0 ity of MEDICINE 4.2.7.2.686 [place] - [phone] [address] 2020-05-14 2020-05-14 Outpatient R [facility] [id number] Univers 13:15:00 13:15:00 ELDER camryn [facility] 2020-05-13 2020-05-13 Office Emeli [facility] 1.2.840.114 [id number] Univers 13:18:56 17:12:41 Visit Cait SWEENEY 350.1.13.10 it y of MEDICINE 4.2.7.2.686 [place] - [id number] [address] 2020-05-13 2020-05-13 Office BRISEIDA Mixon 1.2.840.114 [id number] Univers 10:24:15 11:30:53 Visit [facility] 350.1.13.10 i ty of CLINICS 4.2.7.2.[place] [id number] [facility] [address] 2020-05-13 2020-05-13 Outpatient R ORAL [facility] [id number] Univers 10:30:00 10:30:[address] [facility] 2020-05-13 2020-05-13 Orders Doctor HERRERA 1.2.840.114 [id number] Univers 00:00:00 00:00:00 Only Unassigned, JOLANTA 350.1.13.10 ity of [place] [facility] 4.2.7.2.686 [place] [phone] [facility] [address] 2020-05-10 2020-05-10 Letter JAVIER Parker 1.2.840.114 [id number] Univers 00:00:00 00:00:00 (Out) Norma STOVER 350.1.13.10 it y of HOSPITAL 4.2.7.2.686 [place] [id number] [facility] [address] 2020-05-09 2020-05-09 Urgent Samina Booker [facility] 1.2.840.114 [id number] Univers 10:57:08 11:59:21 Care Unknown, [place] 350.1.13.10 ity of Pediatric 4.2.7.2.686 [facility] [phone] [facility] [address] 2020-05-09 2020-05-09 Outpatient R RUDDY [facility] [id number] Univers 11:00:00 11:00:00 ATTENDING ity [facility] 2020-02-09 2020-02-09 [facility] 1.2.910.296 [id number] Univers 00:00:00 00:00:00 Odilia Smith FAMILY 350.1.13.10 i ty of MEDICINE 4.2.7.2.686 [place] [phone] [facility] [address] [facility] 2020-01-27 2020-01-27 Outpatient SKYLRE DOUGHERTY [facility] [id number] Univers 13:30:00 13:30:00 SKYLER FERRARI [facility] 2019-10-23 2019-10-23 Outpatient R SKYLER FERRARI [facility] [id number] Univers 00:00:00 00:00:00 [facility] 2019-10-10 2019-10-10 Telephone Vega [facility] 1.2.840.114 [id number] Univers 00:00:00 00:00:00 Skyler Aquino PRIMARY 350.1.13.10 ity of C[place] [phone] Mn dical [address] 2019-10-10 2019-10-10 Patient Doctor [facility] 1.2.333.633 [id number] Univers 00:00:00 00:00:00 Secure Msg Unassigned, Y HEALTH 350.1.13.10 ity of [place] CLINICS 4.2.7.2.[place] [id number] [facility] [address] 2019-10-09 2019-10-09 Telephone Vega [facility] 1.2.840.114 [id number] Univers 00:00:00 00:00:00 Skyler Gene PRIMARY 350.1.13.10 ity of CARE 4.2.7.2.686 Bill AHUJA [phone] Mn dical [address] 2019-09-16 2019-09-16 Office [facility] [id number] Univers 17:21:41 17:51:06 Visit Odilia [place] [id number] [facility] [id number] [place] - [phone] [address] 2019-09-16 2019-09-16 [facility] [id number] [facility] 17:20:00 17:51:06 ODILIA velezcamryn [facility] 2019-08-26 2019-08-26 Vessel Sc[facility], [facility] [address] [facility] [id number] Univers 10:42:50 13:40:32 Visit Elaina Live [id number] [place] [facility] - [phone] [address] 2019-07-17 2019-07-17 [facility] [id number] [facility] 11:47:16 16:16:00 APPLE guzmán [facility] 2019-04-08 2019-04-08 Outpatient RAFAELA Luque [id number] [facility] 10:55:00 10:55:00 [facility] 2019-03-17 2019-03-17 Outpatient Walk-In, RAFAELA RUSSO [id number] [facility] 11:00:00 11:00:00 [facility] 2019-03-13 2019-03-13 Outpatient RAFAELA Medina [id number] [facility] 16:00:00 [facility]00[facility] 2019-03-01 Outpatient RAFAELA Luque [id number] [facility] 10:49:00 10:49:00 [facility] 2019-02-25 2019-02-25 Outpatient RAFAELA Luque [id number] [place] [address] 07:47:00 07:47:00 [facility] 2019-02-24 2019-02-24 Outpatient RAFAELA Luque [id number] [facility] 12:40:00 12:40:00 [facility] 2019-02-20 2019-02-20 Outpatient Ene, DIAW CHW [id number] [facility] 11:19:00 11:19:00 [facility] 2019-02-19 2019-02-19 Outpatient Ene, DIAW CHW [id number] [facility] 15:20:00 15:20:00 [facility] 2019-02-06 2019-02-06 Outpatient Wilson, CHW CHW [id number] [facility] 15:50:00 15:50:00 [facility] 2019-01-07 2019-01-07 Outpatient Wilson, W CHW [id number] [facility] 16:14:00 16:14:00 [facility] 2018-12-09 2018-12-09 Outpatient Wilson, CHW CHW [id number] [facility] 09:46:00 09:46:00 [facility] 2018-11-19 2018-11-19 Outpatient Martinez, CHW CHW [id number] [facility] 08:00:00 08:00:00 [facility] 2018-10-29 2018-10-29 Outpatient Martinez, CHW CHW [id number] [facility] 16:00:00 16:00:00 [facility] 2018-10-14 2018-10-14 Outpatient Walk-In, CHW CHW [id number] [facility] 14:20:00 14:20:00 [facility] 2018-10-12 2018-10-12 Outpatient Robby, CHW CHW [id number] [facility] 09:20:00 09:20:00 [facility] 2018-10-09 2018-10-09 Outpatient Wilson, W CHW [id number] [facility] 15:00:00 15:00:00 [facility] 2018-08-28 2018-08-28 Outpatient Wilson, CHW CHW [id number] [facility] 10:37:00 10:37:00 [facility] 2018-08-26 2018-08-26 Outpatient Walk-In, CHW CHW [id number] [facility] 11:40:00 11:40:00 [facility] 2018-08-16 2018-08-16 Outpatient Wilson, Harish [facility] [id number] [facility] 08:18:00 08:18:00 [facility] 2018-08-09 2018-08-09 Outpatient Steve Harish [facility] [id number] [facility] 10:39:00 10:39:00 [facility] 2018-08-08 2018-08-08 Outpatient RAFAELA Wilson [facility] [id number] [facility] 16:20:00 16:20:00 [facility] Results Test Description Test Time Test Comments Results Result Comments Source POCT GLUCOSE (AUTOMATED) 2022-09-15 16:40:41 Test Item Value Reference Range Interpretation Comme nts POCT GLU (test code = 4097573614) 133 mg/dL 70-110 H Lab Interpretation (test code = 76758-8) Abnormal [facility] GLUCOSE (AUTOMATED)2022-09-15 16:40:41 Test Item Value Reference Range Interpretation Comments POCT GLU (test code = 0687257890) 133 mg/dL 70-110 H Lab Interpretation (test code = Abnormal 80882-3) [facility] [id number] 16:35:00 Test Item Value Reference Range Interpretation Comments POCT PREG (test code = 1605) Negative On board controls acceptable with C Yes Line (test code = 3574) POCT PREG LOT # (test code = 3575) POCT PREG TEST DATE (test code = 3576) Lab Interpretation (test code = Normal 58859-3) [facility] [id number] 16:35:00 Test Item Value Reference Range Interpretation Comments POCT PREG (test code = 1605) Negative On board controls acceptable with C Yes Line (test code = 3574) POCT PREG LOT # (test code = 3575) POCT PREG TEST DATE (test code = 3576) Lab Interpretation (test code = Normal 73442-7) [facility] COAGULATION [id number] 22:21:22Related Clinical History The patient is 37 years old female who has been followed by pain managementfor radicular pain. She recently had sacroiliac injections which did not help with her symptoms. Medications: Not currently taking any antiplatelet or anticoagulant medications Family History: No knownfamily history of coagulation disorder 09/05/2022 4:21 PM [facility] Results ? Ref. Range [...] IgA? <15.0 APL? 0.1? 09/05/2022 4:21 PM [facility] SERVICESCoag DMT interpretation This patient has [...] or complications in women. 09/05/2022 4:21 PM [facility] SERVICESRecommendations If clinically indicated, repeat the antiphospholipid antibody panel in 12 weeks, to evaluate the patient for antiphospholipid syndrome.? 09/05/2022 4:21 PM [facility] SERVICESUnCHRIST[facility] KlebergMisc. Sendout- [id number] Lupus Anticoagulant Reflexive [id number] 14:40:11 Test Item Value Reference Range Interpretation Comments Miscellaneous Test (test See scanned report code = [id number]) Performing Lab (test code ARUP = 1521594569) [facility]IC[facility]IP[facility] [id number] 03:44:30 Test Item Value Reference Interpretation Comments Range Anticardiolipin 20.9 See_Comment H [Automated Antibody IgG (test message] The code = 3300140149) system [facility] generated this result transmitted reference range: 0.0 - 10.0 GPL. The reference range was not used to interpret this result as normal/abnormal . Anticardiolipin 1.5 See_Comment [Automated Antibody IgM (test message] The code = 6224542507) system [facility] generated this result transmitted reference range: 0.0 - 10.0 MPL. The reference range was not used to interpret this result as normal/abnormal . Anticardiolipin 0.1 See_Comment [Automated Antibody IgA (test message] The code = 7801736672) system [facility] generated this result transmitted reference range: 0.0 [...] 2210-4 Lab Interpretation Abnormal (test code = 82436-4) [facility] [id number] 03:44:30 Test Item Value Reference Interpretation Comments Range Anticardiolipin See_Comment H [Automated Antibody IgG (test message] The code = 7431384460) system [facility] generated this result transmitted reference range: 0.0 - 10.0 GPL. The reference range was not used to interpret this result as normal/abnormal . Anticardiolipin See_Comment [Automated Antibody IgM (test message] The code = 9195221107) system [facility] generated this result transmitted reference range: 0.0 - 10.0 MPL. The reference range was not used to interpret this result as normal/abnormal . Anticardiolipin See_Comment [Automated Antibody IgA (test message] The code = 7894240506) system [facility] generated this result transmitted reference range: 0.0 [...] 2210-4 Lab Interpretation Abnormal (test code = 83780-4) [facility] GLYCOPROTEIN I [id number] 03:40:36 Test Item Value Reference Interpretation Comments Range Anti-B2 3.0 See_Comment [Automated Glycoprotein 1 IgG message] The (test code = system which 9009002955) generated this result transmitted reference range : 0.0 - 20.0 SGU. The reference range was not used to interpret this result as normal/abnormal . Anti-B2 1.5 See_Comment [Automated Glycoprotein 1 IgM message] The (test code = system which 7646104167) generated this result transmitted reference range : 0.0 - 20.0 SMU. The reference range was not used to interpret this result as normal/abnormal . Anti-B2 5.1 See_Comment [Automated Glycoprotein 1 IgA message] The (test code = system which 4356278755) generated this result transmitted reference range : [...] losses and/or thrombocytopenia. TEST PERFORMED AT:[facility]. [id number] [place] [address] [place] [address] Lab Interpretation Normal (test code = 75418-7) [facility] GLYCOPROTEIN I [id number] 03:40:36 Test Item Value Reference Interpretation Comments Range Anti-B2 See_Comment [Automated Glycoprotein 1 IgG message] The (test code = system which 8914284013) generated this result transmitted reference range : 0.0 - 20.0 SGU. The reference range was not used to interpret this result as normal/abnormal . Anti-B2 See_Comment [Automated Glycoprotein 1 IgM message] The (test code = system which 5265787704) generated this result transmitted reference range : 0.0 - 20.0 SMU. The reference range was not used to interpret this result as normal/abnormal . Anti-B2 See_Comment [Automated Glycoprotein 1 IgA message] The (test code = system which 1395009624) generated this result transmitted reference range : [...] losses and/or thrombocytopenia. TEST PERFORMED AT:[facility]. [address], 4.[facility] [place][note 2] [employer] [facility] [place] [address] Lab Interpretation Normal (test code = 73358-5) [facility] [id number] 17:19:00 Test Item Value Reference Range Interpretation Comments POCT PREG (test code = 1605) Negative On board controls acceptable with C Yes Line (test code = 3574) POCT PREG LOT # (test code = 3575) POCT PREG TEST DATE (test code = 3576) [facility] [id number] 17:19:00 Test Item Value Reference Range Interpretation Comments POCT PREG (test code = 1605) Negative On board controls acceptable with C Yes Line (test code = 3574) POCT PREG LOT # (test code = 3575) POCT PREG TEST DATE (test code = 3576) [facility] [id number] 20:18:00 Test Item Value Reference Range Interpretation Comments POCT PREG (test code = 1605) Negative On board controls acceptable with C Yes Line (test code = 3574) POCT PREG LOT # (test code = 3575) POCT PREG TEST DATE (test code = 3576) Lab Interpretation (test code = Normal 36702-3) [facility] [id number] 20:18:00 Test Item Value Reference Range Interpretation Comments POCT PREG (test code = 1605) Negative On board controls acceptable with C Yes Line (test code = 3574) POCT PREG LOT # (test code = 3575) POCT PREG TEST DATE (test code = 3576) Lab Interpretation (test code = Normal 10097-0) [facility] [id number] 17:01:00 Test Item Value Reference Range Interpretation Comments POCT PREG (test code = 1605) Negative On board controls acceptable with C Yes Line (test code = 3574) POCT PREG LOT # (test code = 3575) POCT PREG TEST DATE (test code = 3576) [facility] HospitalPO[facility] [id number] 17:01:00 Test Item Value Reference Range Interpretation Comments POCT PREG (test code = 1605) Negative On board controls acceptable with C Yes Line (test code = 3574) POCT PREG LOT # (test code = 3575) POCT PREG TEST DATE (test code = 3576) [facility]
--- NOTE | 2022-10-03 16:16 | RAD REPORT ---
EXAM DESCRIPTION: CT - Head Brain Wo Cont - 10/03/2022 3:45 pm CLINICAL HISTORY: HEADACHE. Confusion COMPARISON: No comparisons TECHNIQUE: Noncontrast head CT images ad were obtained without IV contrast. Multiplanar reformats we re generated and reviewed. All CT scans are performed using dose optimization technique as appropriate and may include automated exposure control or mA/KV adjustment according to patient size. FINDINGS: No intracranial hemorrhage, mass, or edema. Midline structures are unremarkable. Normal ventricular caliber for age. Luna-white matter differentiation is preserved, without evidence of acute infarct. No abnormal extra- axial fluid collections. Mastoid air cells and visualized portions of the paranasal sinuses are clear. No acute bony findings. IMPRESSION: No evidence of an acute intracranial process.
[2022-10-03 16:59] LABS: Urine Blood Trace-intact (Negative); Urine Glucose 2+ (Negative); Urine Protein Negative (Negative)
[2022-10-03 17:04] LABS: Hematocrit 41.9 % (36.0-45.0); Lymphocytes % 20.9 % (15.3-44.8); MCV 88.2 fL (80-100); MPV 10.4 fL (7.6-11.3); RBC Red Blood Cell Count 4.75 M/uL (3.86-4.86)
[2022-10-03 17:05] LABS: Protime INR 0.97
--- NOTE | 2022-10-03 17:05 | RAD REPORT ---
EXAM DESCRIPTION: RADChest Single View10/03/2022 4:17 pm CLINICAL HISTORY: CHEST PAIN COMPARISON: Chest Single View dated 10/18/2021 TECHNIQUE: Portable AP view of the chest. FINDINGS: Decreased inspiratory effort somewhat limits evaluation. Mild central interstitial promine nce could reflect mild central congestion. No pneumothorax or effusion. The cardiomediastinal contour s are unremarkable. IMPRESSION: No acute pulmonary process. Appearance of mild central interstitial prominence, could be related to mild central congestion.
[2022-10-03 17:27] LABS: ALT/SGPT 36 U/L (13-56); AST/SGOT 15 U/L (15-37); Albumin 3.9 g/dL (3.4-5.0); Alkaline Phosphatase 55 U/L (45-117); BUN Blood Urea Nitrogen 21 mg/dL (7-18); Bicarbonate 28 mmol/L (21-32); Bilirubin Total 0.3 mg/dL (0.2-1.0); Glomerular Filtration Rate 89 ml/min (=/>90); Glucose Level 122 mg/dL (74-106); Magnesium 2.3 mg/dL (1.6-2.4); Potassium 3.9 mmol/L (3.5-5.1); Protein, Total 7.7 g/dL (6.4-8.2); Sodium Level 139 mmol/L (136-145)
[2022-10-03 17:29] LABS: Bilirubin Direct < 0.1 mg/dL (0-0.2); Troponin High Sensitivity < 3.0 pg/mL (<58.9)
[2022-10-03] MEDS ORDERED: METOCLOPRAMIDE 10 MG/2mL INJ ONE (18:00)
[2022-10-03] MEDS ORDERED: NA CHLORIDE 0.9% 500 ML ONE (18:01)
[2022-10-03] MEDS ORDERED: KETOROLAC 30 MG/ML INJ ONE (18:01)
[2022-10-03] MEDS ORDERED: DIPHENHYDRAMINE 50 MG/ML VIAL ONE (18:01)
[2022-10-03] MEDS ORDERED: MECLIZINE HCL 12.5 MG TAB ONE (18:01)
[2022-10-03] MEDS ORDERED: ONDANSETRON 4 MG/2 ML VIAL ONE (18:01)
--- NOTE | 2022-10-03 19:05 | ER ---
Nurse's Notes [facility] Name: Kelsey Harrell Age: 37 yrs Sex: Female : 1985 Arrival Date: 10/03/2022 Time: 14:39 Bed 11 Private MD: Diagnosis: Headache;Chest pain, unspecified Presentation: 10/03 15:18 Chief complaint: Patient states: she has had a migraine for approx 5 days. patient ap3 reports her head primarily hurts in the back of her head. patient also reports mild chest tightness. patient reports nausea, but denies vomiting. patient states her PCP sent her here for evaluation for migraine with confusion. Coronavirus screen: Client presents with at least one sign or symptom that may indicate coronavirus-19. Ebola Screen: No symptoms or risks identified at this time. Initial Sepsis Screen: Does the patient meet any 2 criteria? No. Patient's initial sepsis screen is negative. Does the patient have a suspected source of infection? No. Patient's initial sepsis screen is negative. Risk Assessment: Do you want to hurt yourself or someone else? Patient reports no desire to harm self or others. Onset of symptoms was September 28, 2022. 15:18 Method Of Arrival: Ambulatory ap3 15:18 Acuity: LENA 3 ap3 Triage Assessment: 15:21 Headache History: The patient has had previous headaches. General: Appears ap3 uncomfortable, Behavior is cooperative, flat. Pain: Complains of pain in scalp Pain currently is 7 out of 10 on a pain scale. Pain began gradually, 5 days ago Also complains of decreased appetite. Neuro: Level of Consciousness is awake, alert, obeys commands, Oriented to person, place, time, situation, Gait is steady, Speech is normal. Cardiovascular: Patient's skin is warm and dry. Respiratory: Airway is patent Respiratory effort is even, unlabored, Respiratory pattern is regular, symmetrical. 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 Flu vaccine is up to date. - Social history:: Smoking status: Reported history of juuling and/or vaping. Patient uses. Screenin:22 Abuse screen: Denies threats or abuse. Nutritional screening: No deficits noted. ap3 Tuberculosis screening: No symptoms or risk factors identified. 16:58 [facility] ED Fall Risk Assessment (Adult) History of falling in the last 3 months, ap3 including since admission No falls in past 3 months (0 pts). Assessment: 16:59 Reassessment: See triage assessment. ap3 18:10 Reassessment: Patient appears in no apparent distress at this time. No changes from ld1 previously documented assessment. Patient and/or family updated on plan of care and expected duration. Pain level reassessed. C/O headache and vertigo. Vital Signs: 15:18 BP 133 / 82; Pulse 91; Resp 18; Temp 98; ap3 15:18 Pulse Ox 98% ; Weight 98.43 kg; Height 5 ft. 4 in. (162.56 cm); ap3 16:59 BP 143 / 84; Pulse 89; Resp 18; Pulse Ox 99% on R/A; Pain 0/10; ap3 18:10 BP 139 / 86; Pulse 79; Resp 18; Pulse Ox 100% on R/A; Pain 8/10; ld1 15:18 Body Mass Index 37.25 (98.43 kg, 162.56 cm) ap3 ED Course: 14:39 Patient arrived in ED. as 15:15 Tony Gallegos PA is PHCP. cp 15:15 Tony Morgan MD is Attending Physician. cp 15:20 Triage completed. ap3 15:22 Arm band placed on left wrist. ap3 16:58 Jess Zacarias, BUCKY is Primary Nurse. ap3 16:58 Patient has correct armband on for positive identification. Placed in gown. Bed in low ap3 position. Call light in reach. Side rails up X2. 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 Pulse ox on. NIBP on. Door closed. Noise minimized. Warm blanket given. 16:58 No provider procedures requiring assistance completed. Inserted saline lock: 20 gauge ap3 in right forearm, using aseptic technique. Blood collected. 18:31 Basic Metabolic Panel Sent. mm9 18:31 CBC with Diff Sent. mm9 18:31 LFT's Sent. mm9 18:31 Magnesium Sent. mm9 18:31 Troponin HS Sent. mm9 18:31 PT-INR Sent. mm9 19:47 IV discontinued, intact, bleeding controlled, No redness/swelling at site. Pressure kr3 dressing applied. Administered Medications: 18:09 Drug: Reglan (metoCLOPramide) 10 mg Route: IVP; Site: right forearm; ld1 19:49 Follow up: Response: No adverse reaction kr3 18:09 Drug: Zofran (Ondansetron) 4 mg Route: IVP; Site: right forearm; ld1 19:48 Follow up: Response: No adverse reaction kr3 18:09 Drug: Benadryl (diphenhydrAMINE) 25 mg Route: IVP; Site: right forearm; ld1 19:48 Follow up: Response: No adverse reaction kr3 18:09 Drug: Ketorolac 15 mg Route: IVP; Site: right forearm; ld1 19:48 Follow up: Response: No adverse reaction kr3 18:09 Drug: NS 0.9% 500 ml Route: IV; Rate: bolus; Site: right forearm; ld1 19:47 Follow up: Response: No adverse reaction; IV Status: Completed infusion; IV Intake: kr3 500ml 18:09 Drug: Meclizine 25 mg Route: PO; ld1 19:47 Follow up: Response: No adverse reaction kr3 Medication: 15:22 VIS not applicable for this client. ap3 Intake: 19:47 IV: 500ml; Total: 500ml. kr3 Outcome: 19:04 Discharge ordered by . cp 19:46 Patient left the ED. kr3 19:46 Discharged to home ambulatory. kr3 19:46 Condition: stable 19:46 Discharge instructions given to patient, Instructed on discharge instructions, follow up and referral plans. medication usage, Demonstrated understanding of instructions, follow-up care, medications, Prescriptions given X 3. Signatures: Destiney Zelaya Corey, PA PA cp Prokisch, Amanda, RN RN ap3 Fern Duke RN RN ld1 Aleksandra Carroll RN RN kr3 Chasidy Zelaya mm9
--- NOTE | 2022-10-03 19:05 | EDPHYS ---
Physician Documentation [facility] Name: Kelsey Harrell Age: 37 yrs Sex: Female : 1985 Arrival Date: 10/03/2022 Time: 14:39 Bed 11 Private MD: ED Physician Tony Morgan HPI: 10/03 15:40 This 37 yrs old Female presents to ER via Ambulatory with complaints of cp Headache, Decreased Appetite, Chest Tightness. 15:40 The patient complains of pain to the back of head. The patient describes the headache cp as aching, waxing and waning. Onset: The symptoms/episode began/occurred 5 day(s) ago. Associated signs and symptoms: Pertinent positives: weakness, decreased appetite, chest tightness. 15:40 Severity of symptoms: in the emergency department the pain is unchanged, despite home cp interventions. 15:40 Headache History: Other history of migraines as teenager but has not had a headache cp like this for years. 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 Flu vaccine is up to date. - Social history:: Smoking status: Reported history of juuling and/or vaping. Patient uses. ROS: 15:45 Constitutional: Negative for body aches, chills, fever, poor PO intake. cp 15:45 Eyes: Negative for injury, pain, redness, and discharge. cp 15:45 ENT: Negative for drainage from ear(s), ear pain, sore throat, difficulty swallowing, difficulty handling secretions. 15:45 Cardiovascular: Positive for chest tightness, Negative for edema, palpitations. 15:45 Respiratory: Negative for cough, shortness of breath, wheezing. 15:45 Abdomen/GI: Positive for nausea, decreased appetite, Negative for abdominal pain, vomiting, diarrhea, constipation. 15:45 Back: Negative for pain at rest, pain with movement. 15:45 : Negative for urinary symptoms. 15:45 Neuro: Positive for headache, Negative for altered mental status, numbness, syncope. 15:45 All other systems are negative. Exam: 15:50 Constitutional: The patient appears in no acute distress, alert, awake, cp non-diaphoretic, non-toxic, well developed, well nourished, uncomfortable. 15:50 Head/Face: Normocephalic, atraumatic. cp 15:50 Eyes: Periorbital structures: appear normal, Pupils: equal, round, and reactive to light and accomodation, Extraocular movements: intact throughout, Conjunctiva: normal, no exudate, no injection, Sclera: no appreciated abnormality, Lids and lashes: appear normal, bilaterally. 15:50 ENT: External ear(s): are unremarkable, Ear canal(s): are normal, clear, TM's: dullness, bilaterally, Nose: is normal, Mouth: Lips: moist, Oral mucosa: pink and intact, moist, Posterior pharynx: is normal, airway is patent, no erythema, no exudate. 15:50 Neck: ROM/movement: is normal, is supple, without pain, no range of motions limitations, no meningismus, no nuchal rigidity, Lymph nodes: no appreciated lymphadenopathy. 15:50 Chest/axilla: Inspection: normal. 15:50 Cardiovascular: Rate: normal, Rhythm: regular. 15:50 Respiratory: the patient does not display signs of respiratory distress, Respirations: normal, no use of accessory muscles, no retractions, labored breathing, is not present, Breath sounds: are clear throughout, no decreased breath sounds, no stridor, no wheezing. 15:50 Abdomen/GI: Inspection: abdomen appears normal, Palpation: abdomen is soft and non-tender, in all quadrants. 15:50 Back: pain, is absent. 15:50 Neuro: Orientation: to person, place \T\ time. Mentation: is normal, Cerebellar function: is grossly normal, Motor: moves all fours, strength is normal, Sensation: is normal. 16:55 ECG was reviewed by the Attending Physician. cp Vital Signs: 15:18 BP 133 / 82; Pulse 91; Resp 18; Temp 98; ap3 15:18 Pulse Ox 98% ; Weight 98.43 kg; Height 5 ft. 4 in. (162.56 cm); ap3 16:59 BP 143 / 84; Pulse 89; Resp 18; Pulse Ox 99% on R/A; Pain 0/10; ap3 18:10 BP 139 / 86; Pulse 79; Resp 18; Pulse Ox 100% on R/A; Pain 8/10; ld1 15:18 Body Mass Index 37.25 (98.43 kg, 162.56 cm) ap3 MDM: 15:32 Patient medically screened. wally 16:00 Differential diagnosis: hyponatremia, meningitis, meningoencephalitis, migraine, cp sinusitis, subarachnoid bleed, tension headache. 19:02 Data reviewed: vital signs, nurses notes, lab test result(s), EKG, radiologic studies, cp CT scan, plain films. 19:02 Consideration of Admission/Observation Escalation of care including cp admission/observation considered. I considered the following discharge prescriptions or medication management in the emergency department Medications were administered in the Emergency Department. See MAR. Test considered but Not performed: MRI: head/brain. Care significantly affected by the following chronic conditions: Diabetes. Counseling: I had a detailed discussion with the patient and/or guardian regarding: the historical points, exam findings, and any diagnostic results supporting the discharge/admit diagnosis, lab results, radiology results, the need for outpatient follow up, a family practitioner, to return to the emergency department if symptoms worsen or persist or if there are any questions or concerns that arise at home. Response to treatment: the patient's symptoms have markedly improved after treatment, and as a result, I will discharge patient. Special discussion: Based on the patient's history, exam, and Dx evaluation, there is no indication for emergent intervention or inpatient Tx. It is understood by the patient/guardian that if the Sx's persist or worsen they need to return immediately for re-evaluation. 10/03 15:33 Order name: Basic Metabolic Panel cp 10/03 15:33 Order name: CBC with Diff cp 10/03 15:33 Order name: LFT's cp 10/03 15:33 Order name: Magnesium cp 10/03 15:33 Order name: PT-INR cp 10/03 15:33 Order name: Troponin HS cp 10/03 16:59 Order name: Urine Dipstick-Ancillary; Complete Time: 17:35 EDMS 10/03 17:36 Interpretation: Normal except: UGLUC 2+; UKET Trace; UBLD Trace-intact. cp 10/03 17:00 Order name: Urine --Ancillary (enter results) em1 10/03 17:05 Order name: CBC with Automated Diff; Complete Time: 17:35 EDMS 10/03 17:37 Interpretation: Reviewed. cp 10/03 17:05 Order name: Protime (+INR); Complete Time: 17:35 EDMS 10/03 17:06 Order name: Urine --Ancillary; Complete Time: 17:35 EDMS 10/03 17:30 Order name: Basic Metabolic Panel; Complete Time: 17:35 EDMS 10/03 17:36 Interpretation: Normal except: GLUC 122; BUN 21; GFR 89. cp 10/03 17:30 Order name: Liver (Hepatic) Function; Complete Time: 17:35 EDMS 10/03 17:36 Interpretation: Normal except: GLOB 3.8; A/G 1.0. cp 10/03 17:30 Order name: Troponin High Sensitivity; Complete Time: 17:35 EDMS 10/03 17:37 Interpretation: Troponin HS < 3.0; Reviewed. cp 10/03 15:33 Order name: XRAY Chest (1 view) cp 10/03 15:33 Order name: EKG; Complete Time: 15:34 cp 10/03 15:33 Order name: Cardiac monitoring; Complete Time: 16:54 cp 10/03 15:33 Order name: EKG - Nurse/Tech; Complete Time: 16:54 cp 10/03 15:33 Order name: IV Saline Lock; Complete Time: 16:58 cp 10/03 15:33 Order name: Labs collected and sent; Complete Time: 16:58 cp 10/03 15:33 Order name: CT Head Brain wo Cont cp 10/03 16:17 Order name: CT; Complete Time: 16:46 EDMS 10/03 16:46 Interpretation: Report reviewed. cp 10/03 17:06 Order name: RAD; Complete Time: 17:35 EDMS 10/03 17:38 Interpretation: Report reviewed. cp 10/03 17:30 Order name: Magnesium; Complete Time: 17:35 EDMS 10/03 15:33 Order name: O2 Per Protocol; Complete Time: 16:42 cp 10/03 15:33 Order name: O2 Sat Monitoring; Complete Time: 16:42 cp 10/03 15:33 Order name: Urine Test (obtain specimen); Complete Time: 16:58 cp 10/03 15:33 Order name: Urine Dipstick-Ancillary (obtain specimen); Complete Time: 16:58 cp EC:55 Rate is 81 beats/min. Rhythm is regular. MT interval is normal. QRS interval is normal. cp QT interval is normal. T waves are Inverted in lead aVR. Interpreted by me. Reviewed by me. Administered Medications: 18:09 Drug: Reglan (metoCLOPramide) 10 mg Route: IVP; Site: right forearm; ld1 19:49 Follow up: Response: No adverse reaction kr3 18:09 Drug: Zofran (Ondansetron) 4 mg Route: IVP; Site: right forearm; ld1 19:48 Follow up: Response: No adverse reaction kr3 18:09 Drug: Benadryl (diphenhydrAMINE) 25 mg Route: IVP; Site: right forearm; ld1 19:48 Follow up: Response: No adverse reaction kr3 18:09 Drug: Ketorolac 15 mg Route: IVP; Site: right forearm; ld1 19:48 Follow up: Response: No adverse reaction kr3 18:09 Drug: NS 0.9% 500 ml Route: IV; Rate: bolus; Site: right forearm; ld1 19:47 Follow up: Response: No adverse reaction; IV Status: Completed infusion; IV Intake: kr3 500ml 18:09 Drug: Meclizine 25 mg Route: PO; ld1 19:47 Follow up: Response: No adverse reaction kr3 Disposition Summary: 10/03/22 19:04 Discharge Ordered Location: Home cp Problem: new cp Symptoms: have improved cp Condition: Stable cp Diagnosis - Headache cp - Chest pain, unspecified cp Followup: cp - With: Private Physician - When: 2 - 3 days - Reason: Recheck today's complaints Discharge Instructions: - Discharge Summary Sheet cp - Nonspecific Chest Pain, Adult cp - General Headache Without Cause cp - Aspirin and Your Heart cp Forms: - Medication Reconciliation Form cp - Thank You Letter cp - Antibiotic Education cp - Prescription Opioid Use cp Prescriptions: - Fioricet 50-300-40 mg Oral capsule - take 1 capsule by ORAL route every 6 hours as needed; 20 capsule; Refills: 0, cp Product Selection Permitted - Meclizine 25 mg Oral Tablet - take 1 tablet by ORAL route every 8 hours As needed; 20 tablet; Refills: 0, cp Product Selection Permitted - Zofran 4 mg Oral Tablet - take 1 tablet by ORAL route every 12 hours As needed; 20 tablet; Refills: 0, cp Product Selection Permitted Signatures: Dispatcher [employer] Tony Gunn MD MD cha Page, Corey, PA PA cp Prokisch, Amanda RN RN ap3 Fern Duke RN RN ld1 Aleksandra Carroll RN kr3
[2022-10-03 20:21] VITALS: TEMP 98
[2022-10-03 20:22] VITALS: BP 139/86; O2SAT 100
== END 2022-10-03 19:46 | disposition home or self-care (01) ==
LOC: ER 14:38
DX: R51.9 Headache, unspecified (principal); R07.89 Other chest pain; R53.1 Weakness; E11.9 Type 2 diabetes mellitus without complications
CPT/HCPCS: 85025; 80048; 36415; 83735; 81025; 85610; 80076; 81003; 84484; 70450; 71045; J2765; J1200; J8597; J7040; J2405; 93005

== ENCOUNTER 2023-07-15 13:04 | Emergency (ER) | payer OTHER ==
[2023-07-15] MEDS ORDERED: IBUPROFEN 200 MG TAB PO ONE (13:32)
--- OUTSIDE RECORDS SUMMARY | 2023-07-15 13:54 | XMS REPORT | Continuity of Care Document ---
:1985 Author Organization [facility] t Address [address] [facility]. [address] [place] [address] Care Team Providers Name Role Phone Taylor Verdin MD Primary Care Physician [phone] AZALIA MICHEL Attending Clinician Unavailable CURTIS MORLEY Attending Clinician Unavailable NORBERT DIAZ Attending Clinician Unavailable NORBERT DIAZ Attending Clinician Unavailable NAINA SEGOVIA Attending Clinician Unavailable RICHA DOMINGUEZ Attending Clinician Unavailable RICHA DOMINGUEZ Attending Clinician Unavailable BETH PHAM Attending Clinician Unavailable DELORES GARCIA Attending Clinician Unavailable DELORES GARCIA Attending Clinician Unavailable EZ PALACIO Attending Clinician Unavailable EZ PALACIO Attending Clinician Unavailable Taylor Verdin MD Attending Clinician [phone] Beth Rodriguez Attending Clinician Lab, Ang - Db Attending Clinician Unavailable TAYLOR VERDIN Attending Clinician Unavailable Doctor Unassigned, [place] Attending Clinician Unavailable Curtis Morley MD Attending Clinician ELDER TENA Attending Clinician Unavailable Norbert Diaz MD Attending Clinician Yvonne Mehta RN Attending Clinician Unavailable Tacos Roman MD Attending Clinician EAMON CARRASCO Attending Clinician Unavailable EAMON CARRASCO Attending Clinician Unavailable Naina Joaquin Attending Clinician HOLLY FREGOSO Attending Clinician Unavailable Radha Andrade Attending Clinician Raul Wilkinson MD Attending Clinician DUNCAN RAMOS Attending Clinician Unavailable Duncan Ramos MD Attending Clinician BIA CHAMORRO Attending Clinician Unavailable Sabrnia Bee MA Attending Clinician Unavailable Wvc-Lab Attending Clinician Unavailable Jacob CHONG, Harjinder White Attending Clinician HARJINDER JAMES Attending Clinician Unavailable Vanda Morales MD Attending Clinician Elder Tena MD Attending Clinician MEGHAN MARKHAM Attending Clinician Unavailable Skyler Ferrari MD Attending Clinician Holly Herrera Attending Clinician Meghan Markham MD Attending Clinician SKYLER FERRARI Attending Clinician Unavailable SKYLER FERRARI Attending Clinician Unavailable [facility] Attending Clinician Unavailable Kalli Jefferson MD Attending Clinician KALLI JEFFERSON Attending Clinician Unavailable KALLI JEFFERSON Attending Clinician Unavailable Carolyn Nava RN, Lana Attending Clinician Unavailable Argentina Looney MD Attending Clinician ARGENTINA LOONEY Attending Clinician Unavailable CAMILO CORLEY Attending Clinician Unavailable Camilo Corley MD Attending Clinician [phone] Lab, Gal [facility] [address] Attending Clinician Unavailable RADHA TRINIDAD Attending Clinician Unavailable Azalia Michel MD Attending Clinician Ashley Hernandez Attending Clinician Catalina Mendez PA-C Attending Clinician [phone] Kristi CHONG, Byron Ward Attending Clinician [place], Adc Test Attending Clinician Unavailable [place] Attending Clinician Wade CHONG, Rene Mar Attending Clinician SAMINA BOOKER Attending Clinician Unavailable Jhony FRUIT DUMPER, Samina A Attending Clinician Unknown, Attending Attending Clinician Unavailable Nurse, Gal Adult Urgent Attending Clinician Unavailable Therapy, Clc Covid Infusion Attending Clinician Unavailable Hai CHONG, Tejinder Jackson Attending Clinician TEJINDER VALLES Attending Clinician Unavailable ASHLEY RAINES Attending Clinician Unavailable Alicja FRUIT DUMPER, Ever Attending Clinician [phone] UNKNOWN, ATTENDING Attending Clinician Unavailable Theo CHONG, Barrington Porter Attending Clinician CATALINA MENDEZ Attending Clinician Unavailable HEATH JOHNSON Attending Clinician Unavailable Biju CHONG, Brady Moreira Attending Clinician Rj CHONG, Amando Umanzor Attending Clinician Elena LAWLER, Norma Burch Attending Clinician Unavailable [place] Attending Clinician Unavailable Care, Gal Adult Urgent Attending Clinician Unavailable Harley CHONG, Chan Attending Clinician Unavailable Emeli CROWDER, Cait Attending Clinician Vineet FRUIT DUMPER, Monika Vogel Attending Clinician [phone] EMILY OBRIEN Attending Clinician Unavailable Jordan, [facility] Resident Attending Clinician Unavailable Jenny Avila MD Attending Clinician Taurus Guadalupe MD Attending Clinician TAURUS GUADALUPE Attending Clinician Unavailable Tacos Giron DO Attending Clinician Only, Pcp Test Attending Clinician Unavailable Emily Fay Attending Clinician Aiyana Bojorquez Attending Clinician [facility] Attending Clinician Unavailable Micheline Mixon MD Attending Clinician MICHELINE MIXON Attending Clinician Unavailable AIYANA HOLLINGSWORTH Attending Clinician Unavailable Andrea Galeano PTA, Maki A Attending Clinician UnavailBrady Strong MD Attending Clinician Bessie Alexandre RN Attending Clinician Unavailable Fellow, Cardiology Attending Clinician Unavailable Octavio Alberto Attending Clinician OCTAVIO ANDERSON Attending Clinician Unavailable Rain Ross PT Attending Clinician Unavailable BRADY KANG Attending Clinician Unavailable Lucille Banks LPC Attending Clinician LUCILLE BANKS Attending Clinician Unavailable Selena Ace MD Attending Clinician Seb LAWLER, Tony Attending Clinician Unavailable Keri Yee MD Attending Clinician Pcp, Patient Does Not Have A Attending Clinician [phone] Gordy Corbett MD Attending Clinician GORDY CORBETT Attending Clinician Unavailable Odilia Mejia MD Attending Clinician ODILIA MEJIA Attending Clinician Unavailable Elaina Live MD Attending Clinician APPLE BROWN Attending Clinician Unavailable Bill Luque Attending Clinician Unavailable Kami Medina Attending Clinician Unavailable Radha Wilson Attending Clinician Unavailable Reyes Martinez Attending Clinician Unavailable Genesis Bustamante Attending Clinician Unavailable AZALIA MICHEL Admitting Clinician Unavailable CURTIS MORLEY Admitting Clinician Unavailable NORBERT DIAZ Admitting Clinician Unavailable Norbert Diaz MD Admitting Clinician SKYLER FERRARI Admitting Clinician Unavailable EZ PALACIO Admitting Clinician Unavailable CAMILO CORLEY Admitting Clinician Unavailable Azalia Michel MD Admitting Clinician Curtis Morley MD Admitting Clinician APPLE BROWN Admitting Clinician Unavailable Payers Payer Name Policy Type Policy Number Effective Date Expiration Date Josesito espino [facility] [id number] 2020 00:00:00 Problems Condition Condition Condition Status Onset Resolution Last Treating Co mments Source Name Details Category Date Date Treatment Clinician Date GENNY GENNY Disease Active Univers (generaliz (generaliz 8-24 [place] y [place] ed [place] disorder[place] 00 [facility] PTSD PTSD Disease Active Univers (post-trau (post-trau 8-24 it y of matic matic 00:00: [place] stress stress 00 Medical disorder) disorder) Bran ch Persistent Persistent Disease Active U nivers depressive depressive 8-24 it y of disorder disorder 00:00: [place] 00 Medical Branch Gastroesop Gastroesop Disease Active Overview : Univers hageal hageal 01-02 Formatt[facility] ity of reflux reflux 00:00: g of this [place] disease, disease, 00 note Medica l unspecifie unspecifie might be Branch d whether d whether different esophagiti esophagiti from the s present s present original. Added automatic ally from request for surgery [id number] Dysphagia, Dysphagia, Disease Active Overview : Univers pharyngoes pharyngoes 01-02 Formattin ity of ophageal ophageal 00:00: g of this [place] as phase phase 00 note Medical might be Branch different from the original. Added automatic ally from request for surgery [id number] Poorly Poorly Disease Active Univers controlled controlled 01-01 it y of diabetes diabetes 00:00: [place] mellitus mellitus 00 [facility] Antiphosph Antiphosph Disease Active U nivers olipid olipid 01-01 ity of antibody antibody 00:00: [place] positive positive 00 [facility] Nausea Nausea Disease Active Univers 5-22 ity of 00:00: [place] 00 Medical Branch AKHIL AKHIL Disease Active Univers (obstructi (obstructi 3-12 it y of ve sleep ve sleep 00:00: [place] apnea) apnea) 00 Medical Branch Sleep Sleep Disease Active Univers difficulti difficulti 2-09 it y of es es 00:00: [place] 00 Medical Branch Chronic Chronic Disease Active Univers fatigue fatigue 2-09 ity of 00:00: [place] 00 Medical Branch Chronic Chronic Disease Active Univers nausea nausea 2-09 ity of 00:00: [place] 00 Medical Branch 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 [place] Patient Patient Disease Active Univers desires desires 1-03 [place] Hirsutism Hirsutism Disease Active 2021-08 Uni vers 2-21 ity of 00:00: [place] 00 Medical Branch Screen for Screen for Disease Active 2021-08 U nivers STD STD 2-05 ity of (sexually (sexually [place] transmit[place] transmitte 00 Me dical d disease) d disease) Br anch Vaginal Vaginal Disease Active 2021-08 Univers discharge discharge 2-05 ity of 00:00: Medical Branch Missed Missed Disease Active 2021-08 Univers menses menses 2-05 ity of 00:00: Medical Branch Pain Pain Disease Active 2021-08 Univers pelvic pelvic 2-05 ity of 00:00: Medical Branch History of History of Disease [...] Added automatic ally from request for surgery [id number] Sacroiliit Sacroiliit Disease Active Overview : Univers is is 2-11 Formattin ity of 00:00: g of this 00 note Medical might be Branch different from the original. Added automatic ally from request for surgery [id number] Loose Loose Disease Active 2019-08 Overview: Univer s stools stools 0-02 Formattin ity of 00:00: g of this 00 note Medical might be Branch different from the original. Added automatic ally from request for surgery [id number] Blood in Blood in Disease Active 2019-08 Overview: Un joby stool stool 0-02 Formattin ity of 00:00: g of this note Medical might be Branch different from the original. Added automatic ally from request for surgery [id number] Pre-eclamp Pre-eclamp Disease Active U nivers teodora [...] mellitus mellitus BMI BMI Disease Active Univers 35.0-35.9, 35.0-35.9, 5-21 it y of adult adult 00:00: [...] Anxiety Anxiety Disease Active [facility] [place] [facility] Fatty Fatty Disease Active Univers liver liver [facility] [place] [facility] Allergies, Adverse Reactions, Alerts Allergy Allergy Status Severity Reaction(s) Onset Inactive Treating Comm ents Source Name Type Date Date Clinician BUSPIRON DRUG Active High Other-Cmnt Univ ers E INGREDI 3-14 ity of 00:00: [place] 00 Medical Branch Buspiron Propensi Active Other - See Can't U nivers e ty to comments 3-14 sleep, ity of adverse 00:00: cannot [place] reaction 00 focus, Medical s confusion Branch Buspiron Drug Active Other - See Can't Uni vers e Intolera comments 3-14 sleep, ity of nce 00:00: cannot [place] 00 focus, Medical confusion Branch Latex Drug Active Rash Univers Allergy 4-26 ity of 00:00: [place] 00 Medical Branch Latex Propensi Active Rash Univers ty to 4-26 ity of adverse 00:00: [place] reaction 00 Medical s Branch LATEX DRUG Active Rash 2006-0 Univers INGREDI 4-26 ity of 00:00: [place] 00 Medical [place] Social History Social Habit Start Date Stop Date Quantity Comments Source Gender identity [facility] [place] [facility] Sexual orientation Univer sity of [place] [facility] Alcohol intake 2023-06-25 2023-06-25 Current University of 00:00:00 00:00:00 non-drinker of [facility] alcohol [place] (finding) History of Social 2023-04-09 2023-04-09 Univers ity of function 00:00:00 00:00:00 [place] [facility] Exposure to 2022-12-30 2023-01-09 Not sure [facility] SARS-CoV-2 (event) 00:00:00 09:52:00 [place] [facility] Cigarettes smoked 2022-09-21 2022-09-21 Univers ity of current (pack per 00:00:00 00:00:[address] [facility] ) - Reported [place] Cigarette 2022-09-21 2022-09-21 University of pack-years 00:00:00 00:00:00 [place] [facility] Tobacco use and 2022-09-21 2022-09-21 Smokeless Universit y of exposure 00:00:00 00:00:[address] tobacco non-[address] [facility] Tobacco Comment 2022-05-16 2022-05-16 vapes Universit y of 00:00:00 00:00:00 [place] [facility] History of tobacco 2016-12-31 2020-07-20 Cigarette Smoker University of use 00:00:00 00:00:00 [facility] Sex Ass[birth year] At [birth year] Universit y of 00:00:00 00:00:00 [place] [facility] Smoking Status Start Date Stop Date Source Ex-smoker 2022-09-21 00:00:00 2022-09-21 [place] [facility] [place] 00:00:00 [facility] Occasional tobacco 2020-06-30 00:00:00 [facility]it y of [place] smoker [facility] Branch Medications Ordered Filled Start Stop Current Ordering Indication Dosage Frequency Signature Comments Components Source Medication Medication Date Date Medication? Clinician (SIG) Name Name glyBURIDE 5 2022- Yes [id number] TAKE 1 Univers mg tablet 1-16 TABLET BY ity o f 00:00: MOUTH [place] 00 TWICE Medical DAILY . Branch APPOINTMEN T REQUIRED FOR FUTURE REFILLS PROMETHAZIN 2022-08 Yes [id number] TAKE 2 Univers E 12.5 mg 1-14 TABLETS BY ity of tablet 00:00: MOUTH [place] 00 EVERY 6 Medical HOURS Branch NEEDED FOR NAUSEA AND VOMITING PROMETHAZIN 2022-08 Yes [id number] TAKE 2 Univers E 12.5 mg 1-14 TABLETS BY ity of tablet 00:00: MOUTH [place] 00 EVERY 6 Medical HOURS Branch NEEDED FOR NAUSEA AND VOMITING GABAPENTIN 2022-08 Yes [id number] 600mg TAKE 1 Univers 600 mg 1-03 TABLET BY ity of tablet 00:00: MOUTH IN [place] 00 THE Medical MORNING Branch AND 1 IN THE EVENING GABAPENTIN 2022-08 Yes [id number] 600mg TAKE 1 Univers 600 mg 1-03 TABLET BY ity of tablet 00:00: MOUTH IN [place] THE Medical MORNING Branch AND 1 IN THE EVENING GABAPENTIN 2022-08 Yes [id number] 600mg TAKE 1 Univers 600 mg 1-03 TABLET BY ity of tablet 00:00: MOUTH IN [place] THE Medical MORNING Branch AND 1 IN THE EVENING GABAPENTIN 2022-08 Yes [id number] 600mg TAKE 1 Univers 600 mg 1-03 TABLET BY ity of tablet 00:00: MOUTH IN [place] 00 THE Medical MORNING Branch AND 1 IN THE EVENING GABAPENTIN 2022-08 Yes [id number] 600mg TAKE 1 Univers 600 mg 1-03 TABLET BY ity of tablet 00:00: MOUTH IN [place] 00 THE Medical MORNING Branch AND 1 IN THE EVENING tirzepatide 2022-08 Yes [id number] 10mg inject 10 Univers (MOUNJARO) 0-30 mg under ity o f 10 mg/0.5 00:00: [place] PnI[place] 00 weekly. Medical Branch empaglifloz 2022-08 Yes [id number] 25mg Take 1 Univers in 0-30 tablet by ity of (JARDIANCE) 00:00: mouth [place] 25 mg Tab 00 every Medical morning. Branch metFORMIN 2022-08 Yes [id number] 1000mg Take 1 Univers 1,000 mg 0-30 tablet by ity of tablet 00:00: mouth in [place] 00 the Medical morning Branch and 1 tablet in the evening. Take with meals. pioglitazon 2022-08 Yes [id number] 30mg Take 1 Univers e 30 mg 0-30 tablet by ity of tablet 00:00: mouth in [place] 00 the Medical morning. Branch tirzepatide 2022-08 Yes [id number] 10mg inject 10 Univers (MOUNJARO) 0-30 mg under ity o f 10 mg/0.5 00:00: [place] mL PnIj 00 weekly. Medical Branch empaglifloz 2022-08 Yes [id number] 25mg Take 1 Univers in 0-30 tablet by ity of (JARDIANCE) 00:00: mouth [place] 25 mg Tab 00 every Medical morning. Branch metFORMIN 2022-08 Yes [id number] 1000mg Take 1 Univers 1,000 mg 0-30 tablet by ity of tablet 00:00: mouth in [place] 00 the Medical morning Branch and 1 tablet in the evening. Take with meals. pioglitazon 2022-08 Yes [id number] 30mg Take 1 Univers e 30 mg 0-30 tablet by ity of tablet 00:00: mouth in [place] 00 the Medical morning. Branch tirzepatide 2022-08 Yes [id number] 10mg inject 10 Univers (MOUNJARO) 0-30 mg under ity o f 10 mg/0.5 00:00: [place] mL PnIj 00 weekly. Medical Branch empaglifloz 2022-08 Yes [id number] 25mg Take 1 Univers in 0-30 tablet by ity of (JARDIANCE) 00:00: mouth [place] 25 mg Tab 00 every Medical morning. Branch metFORMIN 2022-08 Yes [id number] 1000mg Take 1 Univers 1,000 mg 0-30 tablet by ity of tablet 00:00: mouth in [place] 00 the Medical morning Branch and 1 tablet in the evening. Take with meals. pioglitazon 2022-08 Yes [id number] 30mg Take 1 Univers e 30 mg 0-30 tablet by ity of tablet 00:00: mouth in [place] 00 the Medical morning. Branch tirzepatide 2022-08 Yes [id number] 10mg inject 10 Univers (MOUNJARO) 0-30 mg under ity o f 10 mg/0.5 00:00: [place] mL PnIj 00 weekly. Medical Branch empaglifloz 2022-08 Yes [id number] 25mg Take 1 Univers in 0-30 tablet by ity of (JARDIANCE) 00:00: mouth [place] 25 mg Tab 00 every Medical morning. Branch metFORMIN 2022-08 Yes [id number] 1000mg Take 1 Univers 1,000 mg 0-30 tablet by ity of tablet 00:00: mouth in [place] the Medical morning Branch and 1 tablet in the evening. Take with meals. pioglitazon 2022-08 Yes [id number] 30mg Take 1 Univers e 30 mg 0-30 tablet by ity of tablet 00:00: mouth in [place] 00 the Medical morning. Branch tirzepatide 2022-08 Yes [id number] 10mg inject 10 Univers (MOUNJARO) 0-30 mg under ity o f 10 mg/0.5 00:00: [place] mL PnIj 00 weekly. Medical Branch empaglifloz 2022-08 Yes [id number] 25mg Take 1 Univers in 0-30 tablet by ity of (JARDIANCE) 00:00: mouth [place] 25 mg Tab 00 every Medical morning. Branch metFORMIN 2022-08 Yes [id number] 1000mg Take 1 Univers 1,000 mg 0-30 tablet by ity of tablet 00:00: mouth in [place] the Medical morning Branch and 1 tablet in the evening. Take with meals. pioglitazon 2022-08 Yes [id number] 30mg Take 1 Univers e 30 mg 0-30 tablet by ity of tablet 00:00: mouth in [place] the Medical morning. Branch tirzepatide 2022-08 Yes [id number] 10mg inject 10 Univers (MOUNJARO) 0-30 mg under ity o f 10 mg/0.5 00:00: [place] mL PnI[place] 00 weekly. Medical Branch empaglifloz 2022-08 Yes [id number] 25mg Take 1 Univers in 0-30 tablet by ity of (JARDIANCE) 00:00: mouth [place] 25 mg Tab 00 every Medical morning. Branch metFORMIN 2022-08 Yes [id number] 1000mg Take 1 Univers 1,000 mg 0-30 tablet by ity of tablet 00:00: mouth in [place] the Medical morning Branch and 1 tablet in the evening. Take with meals. pioglitazon 2022-08 Yes [id number] 30mg Take 1 Univers e 30 mg 0-30 tablet by ity of tablet 00:00: mouth in [place] 00 the Medical morning. Branch tirzepatide 2022-08 Yes [id number] 10mg inject 10 Univers (MOUNJARO) 0-30 mg under ity o f 10 mg/0.5 00:00: [place] mL PnIj 00 weekly. Medical Branch empaglifloz 2022-08 Yes [id number] 25mg Take 1 Univers in 0-30 tablet by ity of (JARDIANCE) 00:00: mouth [place] 25 mg Tab 00 every Medical morning. Branch metFORMIN 2022-08 Yes [id number] 1000mg Take 1 Univers 1,000 mg 0-30 tablet by ity of tablet 00:00: mouth in [place] 00 the Medical morning Branch and 1 tablet in the evening. Take with meals. pioglitazon 2022-08 Yes [id number] 30mg Take 1 Univers e 30 mg 0-30 tablet by ity of tablet 00:00: mouth in [place] 00 the Medical morning. Branch tirzepatide 2022-08 Yes [id number] 10mg inject 10 Univers (MOUNJARO) 0-30 mg under ity o f 10 mg/0.5 00:00: [place] mL PnI[place] 00 weekly. Medical Branch empaglifloz 2022-08 Yes [id number] 25mg Take 1 Univers in 0-30 tablet by ity of (JARDIANCE) 00:00: mouth [place] 25 mg Tab 00 every Medical morning. Branch metFORMIN 2022-08 Yes [id number] 1000mg Take 1 Univers 1,000 mg 0-30 tablet by ity of tablet 00:00: mouth in [place] 00 the Medical morning Branch and 1 tablet in the evening. Take with meals. pioglitazon 2022-08 Yes [id number] 30mg Take 1 Univers e 30 mg 0-30 tablet by ity of tablet 00:00: mouth in [place] 00 the Medical morning. Branch tirzepatide 2022-08 Yes [id number] 10mg inject 10 Univers (MOUNJARO) 0-30 mg under ity o f 10 mg/0.5 00:00: [place] mL PnI[place] 00 weekly. Medical Branch empaglifloz 2022-08 Yes [id number] 25mg Take 1 Univers in 0-30 tablet by ity of (JARDIANCE) 00:00: mouth [place] 25 mg Tab 00 every Medical morning. Branch metFORMIN 2022-08 Yes [id number] 1000mg Take 1 Univers 1,000 mg 0-30 tablet by ity of tablet 00:00: mouth in [place] 00 the Medical morning Branch and 1 tablet in the evening. Take with meals. pioglitazon 2022-08 Yes [id number] 30mg Take 1 Univers e 30 mg 0-30 tablet by ity of tablet 00:00: mouth in [place] 00 the Medical morning. Branch meclizine 2022-08 Yes [id number] TAKE 1 U nivers 25 mg 0-25 TABLET BY ity of tablet 00:00: MOUTH [place] 00 EVERY 8 Medical HOURS Branch NEEDED atorvastati 2022-08 Yes [id number] 20mg Take 1 Univers n 20 mg 0-25 tablet by ity of tablet 00:00: mouth at [place] 00 bedtime. Medical Branch meclizine 2022-08 Yes [id number] TAKE 1 U nivers 25 mg 0-25 TABLET BY ity of tablet 00:00: MOUTH [place] 00 EVERY 8 Medical HOURS Branch NEEDED atorvastati 2022-08 Yes [id number] 20mg Take 1 Univers n 20 mg 0-25 tablet by ity of tablet 00:00: mouth at [place] 00 bedtime. Medical Branch meclizine 2022-08 Yes [id number] TAKE 1 U nivers 25 mg 0-25 TABLET BY ity of tablet 00:00: MOUTH [place] 00 EVERY 8 Medical HOURS Branch NEEDED atorvastati 2022-08 Yes [id number] 20mg Take 1 Univers n 20 mg 0-25 tablet by ity of tablet 00:00: mouth at [place] 00 bedtime. Medical Branch meclizine 2022-08 Yes [id number] TAKE 1 U nivers 25 mg 0-25 TABLET BY ity of tablet 00:00: MOUTH [place] 00 EVERY 8 Medical HOURS Branch NEEDED atorvastati 2022-08 Yes [id number] 20mg Take 1 Univers n 20 mg 0-25 tablet by ity of tablet 00:00: mouth at [place] 00 bedtime. Medical Branch meclizine 2022-08 Yes [id number] TAKE 1 U nivers 25 mg 0-25 TABLET BY ity of tablet 00:00: MOUTH [place] 00 EVERY 8 Medical HOURS Branch NEEDED atorvastati 2022-08 Yes [id number] 20mg Take 1 Univers n 20 mg 0-25 tablet by ity of tablet 00:00: mouth at [place] 00 bedtime. Medical Branch [facility] 2022-08 Yes [id number] TAKE 1 U nivers 25 mg 0-25 TABLET BY ity of tablet 00:00: MOUTH [place] 00 EVERY 8 Medical HOURS Branch NEEDED atorvastati 2022-08 Yes [id number] 20mg Take 1 Univers n 20 mg 0-25 tablet by ity of tablet 00:00: mouth at [place] 00 bedtime. Medical Branch [facility] 2022-08 Yes [id number] TAKE 1 U nivers 25 mg 0-25 TABLET BY ity of tablet 00:00: MOUTH [place] 00 EVERY 8 Medical HOURS Branch NEEDED atorvastati 2022-08 Yes [id number] 20mg Take 1 Univers n 20 mg 0-25 tablet by ity of tablet 00:00: mouth at [place] 00 bedtime. Medical Branch [facility] 2022-08 Yes [id number] TAKE 1 U nivers 25 mg 0-25 TABLET BY ity of tablet 00:00: MOUTH [place] 00 EVERY 8 Medical HOURS Branch NEEDED atorvastati 2022-08 Yes [id number] 20mg Take 1 Univers n 20 mg 0-25 tablet by ity of tablet 00:00: mouth at [place] 00 bedtime. Medical Branch [facility] 2022-08 Yes [id number] TAKE 1 U nivers 25 mg 0-25 TABLET BY ity of tablet 00:00: MOUTH [place] 00 EVERY 8 Medical HOURS Branch NEEDED atorvastati 2022-08 Yes [id number] 20mg Take 1 Univers n 20 mg 0-25 tablet by ity of tablet 00:00: mouth at [place] 00 bedtime. Medical Branch [facility] 2022-08 Yes [id number] TAKE 1 U nivers 25 mg 0-25 TABLET BY ity of tablet 00:00: MOUTH [place] 00 EVERY 8 Medical HOURS Branch NEEDED atorvastati 2022- Yes [id number] 20mg Take 1 Univers n 20 mg 0-25 tablet by ity of tablet 00:00: mouth at [place] 00 bedtime. Medical Branch [facility] 2022-08 Yes [id number] TAKE 1 U nivers 25 mg 0-25 TABLET BY ity of tablet 00:00: MOUTH [place] 00 EVERY 8 Medical HOURS Branch NEEDED atorvastati 2022-08 Yes [id number] 20mg Take 1 Univers n 20 mg 0-25 tablet by ity of tablet 00:00: mouth at [place] 00 bedtime. Medical Branch meclizine 2022-08 Yes [id number] TAKE 1 U nivers 25 mg 0-25 TABLET BY ity of tablet 00:00: MOUTH [place] 00 EVERY 8 Medical HOURS Branch NEEDED atorvastati 2022-08 Yes [id number] 20mg Take 1 Univers n 20 mg 0-25 tablet by ity of tablet 00:00: mouth at [place] 00 bedtime. Medical Branch PROMETHAZIN 2022-08 Yes [id number] TAKE 2 Univers E 12.5 mg 0-20 TABLETS BY ity of tablet 00:00: MOUTH [place] 00 EVERY 6 Medical HOURS Branch NEEDED FOR NAUSEA AND VOMITING PROMETHAZIN 2022-08 Yes [id number] TAKE 2 Univers E 12.5 mg 0-20 TABLETS BY ity of tablet 00:00: MOUTH [place] 00 EVERY 6 Medical HOURS Branch NEEDED FOR NAUSEA AND VOMITING PROMETHAZIN 2022-08 Yes [id number] TAKE 2 [facility] E 12.5 mg 0-20 TABLETS BY ity of tablet 00:00: MOUTH [place] 00 EVERY 6 Medical HOURS Branch NEEDED FOR NAUSEA AND VOMITING PROMETHAZIN 2022-08 Yes [id number] TAKE 2 [facility] E 12.5 mg 0-20 TABLETS BY ity of tablet 00:00: MOUTH [place] 00 EVERY 6 Medical HOURS Branch NEEDED FOR NAUSEA AND VOMITING PROMETHAZIN 2022-08 Yes [id number] TAKE 2 [facility] E 12.5 mg 0-20 TABLETS BY ity of tablet 00:00: MOUTH [place] 00 EVERY 6 Medical HOURS Branch NEEDED FOR NAUSEA AND VOMITING PROMETHAZIN 2022-08 Yes [id number] TAKE 2 [facility] E 12.5 mg 0-20 TABLETS BY ity of tablet 00:00: MOUTH [place] 00 EVERY 6 Medical HOURS Branch NEEDED FOR NAUSEA AND VOMITING PROMETHAZIN 2022-08 Yes [id number] TAKE 2 [facility] E 12.5 mg 0-20 TABLETS BY ity of tablet 00:00: MOUTH [place] 00 EVERY 6 Medical HOURS Branch NEEDED FOR NAUSEA AND VOMITING PROMETHAZIN 2022-08 Yes [id number] TAKE 2 [facility] E 12.5 mg 0-20 TABLETS BY ity of tablet 00:00: MOUTH [place] 00 EVERY 6 Medical HOURS Branch NEEDED FOR NAUSEA AND VOMITING PROMETHAZIN 2022-08 Yes [id number] TAKE 2 [facility] E 12.5 mg 0-20 TABLETS BY ity of tablet 00:00: MOUTH [place] 00 EVERY 6 Medical HOURS Branch NEEDED FOR NAUSEA AND VOMITING PROMETHAZIN 2022-08- No [id number] TAKE 2 [facility] E 12.5 mg 0-20 11-14 TABLETS BY ity of tablet 00:00: 00:00 MOUTH [place] 00 :00 EVERY 6 Medical HOURS Branch NEEDED FOR NAUSEA AND VOMITING PROMETHAZIN 2022-08- No [id number] TAKE 2 [facility] E 12.5 mg 0-20 11-14 TABLETS BY ity of tablet 00:00: 00:00 MOUTH [place] 00 :00 EVERY 6 Medical HOURS Branch NEEDED FOR NAUSEA AND VOMITING PROMETHAZIN 2022-08- No [id number] TAKE 2 [facility] E 12.5 mg 0-20 11-14 TABLETS BY ity of tablet 00:00: 00:00 MOUTH [place] 00 :00 EVERY 6 Medical HOURS Branch NEEDED FOR NAUSEA AND VOMITING lidocaine No [id number] 10mL Univ ers 1% (PF) 05-11 ity of (XYLOCAINE) 19:45: 18:46 [place] injection 00 :00 Medical 10 mL Branch bupivacaine 2022- No [id number] 4mL Un job[facility] (preserv 05-11 ity of free) 19:45: 18:46 [place] (SENSORCAIN 00 :00 Medical E MPF) 0.25 Branch % (2.5 mg/mL) injection 4 mL bupivacaine 2022- No [id number] 4mL 4 mL, U nivers (preserv 05-11 Infiltrati ity of free) 19:45: 18:46 on, ONCE, [place] (SENSORCAIN 00 :00 1 dose, On Me dical E MPF) 0.25 Fri Branch % (2.5 05/11/23 at mg/mL) 1445, injection 4 Routine mL lidocaine 2022- No [id number] 10mL 10 mL, Un [facility] 1% (PF) 05-11 Infiltrati ity o f (XYLOCAINE) 19:45: 18:46 on, ONCE, [place] injection 00 :00 1 dose, On Medi nirmal 10 mL Fri Branch 05/11/23 at 1445, Routine lidocaine 2022-0 2022- No [id number] 10mL Univ ers 1% (PF) 05-11 ity of (XYLOCAINE) 19:45: 18:46 [place] injection 00 :00 Medical 10 mL Branch bupivacaine 3-0 2022- No [id number] 4mL [facility] (preserv 05-11 ity of free) 19:45: 18:46 [place] (SENSORCAIN 00 :00 Medical E MPF) 0.25 Branch % (2.5 mg/mL) injection 4 mL bupivacaine 2022-0 2022- No [id number] 4mL 4 mL, U nivers (preserv 05-11 Infiltrati ity of free) 19:45: 18:46 on, ONCE, [place] (SENSORCAIN 00 :00 1 dose, On Me dical E MPF) 0.25 Fri Branch % (2.5 05/11/23 at mg/mL) 1445, injection 4 Routine mL lidocaine 2022-0 2022- No [id number] 10mL 10 mL, [facility] 1% (PF) 05-11 Infiltrati ity o f (XYLOCAINE) 19:45: 18:46 on, ONCE, [place] injection 00 :00 1 dose, On Medi nirmal 10 mL Fri Branch 05/11/23 at 1445, Routine triamcinolo 2022-0 2022- No [id number] 40mg Un job[facility] ne 05-11 ity of acetonide 19:30: 18:47 [place] (KENALOG) 00 :00 Medical injection Branch 40 mg triamcinolo 2022-0 2022- No [id number] 40mg 40 mg, Univers ne 05-11 Infiltrati ity of acetonide 19:30: 18:47 [place], ONCE, [place] (KENALOG[place] 00 :00 1 dose, On Medi nirmal injection Fri Branch 40 mg 05/11/23 at 1430, Routine triamcinolo 2022-0 2022- No [id number] 40mg Un joby ne 05-11 ity of acetonide 19:30: 18:47 [place] (KENALOG) 00 :00 Medical injection Branch 40 mg triamcinolo 2022-0 2022- No [id number] 40mg 40 mg, Univers ne 05-11 Infiltrati ity of acetonide 19:30: 18:47 [place], ONCE, [place] (KE[place]LOG[place] 00 :00 1 dose, On Medi nirmal injection Fri Branch 40 mg 05/11/23 at 1430, Routine FENTanyl PF 2022-2022- No Slow IV [facility] (SUBLIMAZE 05-11 Push, ity of (PF)) 18:56: 18:56 TITRATE - [place] injection 34 :34 FOR Medical PROCEDURE Branch USE, 1 dose, Starting on Sun05/11/23 at 1356, Until Sun05/11/23 at 1356, Routine FENTanyl PF 2022- No Slow IV [facility] (SUBLIMAZE 05-11 Push, ity of (PF)) 18:56: 18:56 TITRATE - [place] injection 34 :34 FOR Medical PROCEDURE Branch USE, 1 dose, Starting on Sun05/11/23 at 1356, Until Sun05/11/23 at 1356, Routine FENTanyl PF 2022- No Slow IV [facility] [place] (SUBLIMAZE 05-11 Push, ity of (PF)) 18:45: 18:45 TITRATE - [place] injection 00 :00 FOR Medical PROCEDURE Branch USE, 1 dose, Starting on Sun05/11/23 at 1345, Until Sun05/11/23 at 1345, Routine FENTanyl PF 2022-2022- No Slow IV [place] (SUBLIMAZE 05-11 Push, ity of (PF)) 18:45: 18:45 TITRATE - [place] injection 00 :00 FOR Medical PROCEDURE Branch USE, 1 dose, Starting on Sun05/11/23 at 1345, Until Sun05/11/23 at 1345, Routine FENTanyl PF 2022- No Slow IV [facility] (SUBLIMAZE 05-11 Push, ity of (PF)) 18:43: 18:43 TITRATE - [place] injection 00 :00 FOR Medical PROCEDURE Branch USE, 1 dose, Starting on Sun05/11/23 at 1343, Until Sun05/11/23 at 1343, Routine FENTanyl PF 2022-2022- No Slow IV [place] (SUBLIMAZE 05-11 Push, ity of (PF)) 18:43: 18:43 TITRATE - [place] injection 00 :00 FOR Medical PROCEDURE Branch USE, 1 dose, Starting on Sun05/11/23 at 1343, Until Sun05/11/23 at 1343, Routine midazolam 2022- No IV Push, Uni vers (VERSED) 05-11 TITRATE - ity o f injection 18:38: 18:38 FOR [place] 00 :00 PROCEDURE Medical USE, 1 Branch dose, Starting on Sun05/11/23 at 1338, Until Sun05/11/23 at 1338, Routine midazolam 2022- No IV Push, Uni vers (VERSED) 05-11 TITRATE - ity o f injection 18:38: 18:38 FOR [place] 00 :00 PROCEDURE Medical USE, 1 Branch dose, Starting on Sun05/11/23 at 1338, Until Sun05/11/23 at 1338, Routine ondansetron 2022- No TITRATE - Univers (ZOFRAN 05-11 FOR ity of (PF)) 18:37: 18:37 PROCEDURE [place] injection 00 :00 USE, 1 Medical dose, Branch Starting on Sun05/11/23 at 1337, Until Sun05/11/23 at 1337, Routine ondansetron 2022- No TITRATE - Univers (ZOFRAN 05-11 FOR ity of (PF)) 18:37: 18:37 PROCEDURE [place] injection 00 :00 USE, 1 Medical dose, Branch Starting on Sun05/11/23 at 1337, Until Sun05/11/23 at 1337, Routine lactated 2022- No [id number] 500mL Univ ers ringers IV 05-11 ity of infusion 18:15: 18:15 [place] 500 mL 00 :00 Medical Branch lactated 2022-0 2022- No [id number] 500mL at 20 Uni vers ringers IV 05-11 mL/hr, 500 it y of infusion 18:15: 18:15 mL, IV [place] 500 mL 00 :00 Infusion, Medical ONCE, 1 Branch dose, On Sun05/11/23 at 1315, Routine lactated 2022-0 2022- No [id number] 500mL Univ ers ringers IV 05-11 ity of infusion 18:15: 18:15 [place] 500 mL 00 :00 Medical Branch lactated 3-0 2023- No [id number] 500mL at 20 Uni vers ringers IV 05-11 mL/hr, 500 it y of infusion 18:15: 18:15 mL, IV [place] 500 mL 00 :00 Infusion, Medical ONCE, 1 Branch dose, On Sun05/11/23 at 1315, Routine fluconazole 2022-0 Yes [id number] 200mg Take 1 [facility] 200 mg 9-26 tablet by ity of tablet 00:00: mouth [place] 00 every 3 Medical (three) Branch days. fluconazole 2022-0 Yes [id number] 200mg Take 1 [facility] 200 mg 9-26 tablet by ity of tablet 00:00: mouth [place] 00 every 3 Medical (three) Branch days. fluconazole 2022-0 Yes [id number] 200mg Take 1 [facility] 200 mg 9-26 tablet by ity of tablet 00:00: mouth [place] 00 every 3 Medical (three) Branch days. fluconazole 2022-0 Yes [id number] 200mg Take 1 [facility] 200 mg 9-26 tablet by ity of tablet 00:00: mouth [place] 00 every 3 Medical (three) Branch days. fluconazole 2022-0 Yes [id number] 200mg Take 1 [facility] 200 mg 9-26 tablet by ity of tablet 00:00: mouth [place] 00 every 3 Medical (three) Branch days. fluconazole 2022-0 Yes [id number] 200mg Take 1 [facility] 200 mg 9-26 tablet by ity of tablet 00:00: mouth [place] 00 every 3 Medical (three) Branch days. fluconazole 2022-0 Yes [id number] 200mg Take 1 [facility] 200 mg 9-26 tablet by ity of tablet 00:00: mouth [place] 00 every 3 Medical (three) Branch days. fluconazole 3-0 Yes [id number] 200mg Take 1 [facility] 200 mg 9-26 tablet by ity of tablet 00:00: mouth [place] 00 every 3 Medical (three) Branch days. fluconazole 3-0 Yes [id number] 200mg Take 1 [facility] 200 mg 9-26 tablet by ity of tablet 00:00: mouth [place] 00 every 3 Medical (three) Branch days. fluconazole 2022-0 Yes [id number] 200mg Take 1 [facility] 200 mg 9-26 tablet by ity of tablet 00:00: mouth [place] 00 every 3 Medical (three) Branch days. fluconazole 2023-0 Yes [id number] 200mg Take 1 [facility] 200 mg 9-26 tablet by ity of tablet 00:00: mouth [place] 00 every 3 Medical (three) Branch days. fluconazole 2023-0 Yes [id number] 200mg Take 1 [facility] 200 mg 9-26 tablet by ity of tablet 00:00: mouth [place] 00 every 3 Medical (three) Branch days. fluconazole 2023-0 Yes [id number] 200mg Take 1 [facility] 200 mg 9-26 tablet by ity of tablet 00:00: mouth [place] 00 every 3 Medical (three) Branch days. fluconazole 2023-0 Yes [id number] 200mg Take 1 [facility] 200 mg 9-26 tablet by ity of tablet 00:00: mouth [place] 00 every 3 Medical (three) Branch days. fluconazole 2023-0 Yes [id number] 200mg Take 1 [facility] 200 mg 9-26 tablet by ity of tablet 00:00: mouth [place] 00 every 3 Medical (three) Branch days. fluconazole 2023-0 Yes [id number] 200mg Take 1 [facility] 200 mg 9-26 tablet by ity of tablet 00:00: mouth [place] 00 every 3 Medical (three) Branch days. fluconazole 2023-0 Yes [id number] 200mg Take 1 [facility] 200 mg 9-26 tablet by ity of tablet 00:00: mouth [place] 00 every 3 Medical (three) Branch days. fluconazole 2023-0 Yes [id number] 200mg Take 1 [facility] 200 mg 9-26 tablet by ity of tablet 00:00: mouth [place] 00 every 3 Medical (three) Branch days. fluconazole 2023-0 Yes [id number] 200mg Take 1 [facility] 200 mg 9-26 tablet by ity of tablet 00:00: mouth [place] 00 every 3 Medical (three) Branch days. fluconazole 2023-0 Yes [id number] 200mg Take 1 [facility] 200 mg 9-26 tablet by ity of tablet 00:00: mouth [place] 00 every 3 Medical (three) Branch days. fluconazole 2023-0 Yes [id number] 200mg Take 1 [facility] 200 mg 9-26 tablet by ity of tablet 00:00: mouth [place] 00 every 3 Medical (three) Branch days. fluconazole 2023-0 Yes [id number] 200mg Take 1 [facility] 200 mg 9-26 tablet by ity of tablet 00:00: mouth [place] 00 every 3 Medical (three) Branch days. ampicillin 2022- Yes [id number] 500mg Take 1 [facility] 500 mg 9-26 10-04 capsule by ity of capsule 00:00: 04:59 mouth [place] 00 :00 every 6 Medical (six) Branch hours for 7 days. ampicillin 2022-2022- Yes [id number] 500mg Take 1 [facility] 500 mg 9-26 10-04 capsule by ity of capsule 00:00: 04:59 mouth [place] 00 :00 every 6 Medical (six) Branch hours for 7 days. ampicillin 2022-2022- Yes [id number] 500mg Take 1 [facility] 500 mg 9-26 10-04 capsule by ity of capsule 00:00: 04:59 mouth [place] 00 :00 every 6 Medical (six) Branch hours for 7 days. ampicillin 2022- Yes [id number] 500mg Take 1 [facility] 500 mg 9-26 10-04 capsule by ity of capsule 00:00: 04:59 mouth [place] 00 :00 every 6 Medical (six) Branch hours for 7 days. ampicillin 2022- Yes [id number] 500mg Take 1 [facility] 500 mg 9-26 10-04 capsule by ity of capsule 00:00: 04:59 mouth [place] 00 :00 every 6 Medical (six) Branch hours for 7 days. ampicillin 2022- No [id number] 500mg Take 1 [facility] 500 mg 9-26 10-04 capsule by ity of capsule 00:00: 04:59 mouth [place] 00 :00 every 6 Medical (six) Branch hours for 7 days. ampicillin 2022-2022- No [id number] 500mg Take 1 [facility] 500 mg 9-26 10-04 capsule by ity of capsule 00:00: 04:59 mouth [place] 00 :00 every 6 Medical (six) Branch hours for 7 days. glyBURIDE 5 2022-0 Yes [id number] TAKE 1 [facility] mg tablet 9-25 TABLET BY ity o f 00:00: MOUTH [place] 00 TWICE Medical DAILY . Branch APPOINTMEN T REQUIRED FOR FUTURE REFILLS glyBURIDE 5 2022-0 Yes [id number] TAKE 1 [facility] mg tablet 9-25 TABLET BY ity o f 00:00: MOUTH [place] 00 TWICE Medical DAILY . Branch APPOINTMEN T REQUIRED FOR FUTURE REFILLS glyBURIDE 5 Yes [id number] TAKE 1 [facility] mg tablet 9-25 TABLET BY ity o f 00:00: MOUTH [place] 00 TWICE Medical DAILY . Branch APPOINTMEN T REQUIRED FOR FUTURE REFILLS glyBURIDE 5 Yes [id number] TAKE 1 [facility] mg tablet 9-25 TABLET BY ity o f 00:00: MOUTH [place] 00 TWICE Medical DAILY . Branch APPOINTMEN T REQUIRED FOR FUTURE REFILLS glyBURIDE 5 Yes [id number] TAKE 1 [facility] mg tablet 9-25 TABLET BY ity o f 00:00: MOUTH [place] 00 TWICE Medical DAILY . Branch APPOINTMEN T REQUIRED FOR FUTURE REFILLS glyBURIDE 5 Yes [id number] TAKE 1 [facility] mg tablet 9-25 TABLET BY ity o f 00:00: MOUTH [place] 00 TWICE Medical DAILY . Branch APPOINTMEN T REQUIRED FOR FUTURE REFILLS glyBURIDE 5 Yes [id number] TAKE 1 [facility] mg tablet 9-25 TABLET BY ity o f 00:00: MOUTH [place] 00 TWICE Medical DAILY . Branch APPOINTMEN T REQUIRED FOR FUTURE REFILLS glyBURIDE 5 Yes [id number] TAKE 1 [facility] mg tablet 9-25 TABLET BY ity o f 00:00: MOUTH [place] 00 TWICE Medical DAILY . Branch APPOINTMEN T REQUIRED FOR FUTURE REFILLS glyBURIDE 5 Yes [id number] TAKE 1 [facility] mg tablet 9-25 TABLET BY ity o f 00:00: MOUTH [place] 00 TWICE Medical DAILY . Branch APPOINTMEN T REQUIRED FOR FUTURE REFILLS glyBURIDE 5 Yes [id number] TAKE 1 [facility] mg tablet 9-25 TABLET BY ity o f 00:00: MOUTH [place] 00 TWICE Medical DAILY . Branch APPOINTMEN T REQUIRED FOR FUTURE REFILLS glyBURIDE 5 Yes [id number] TAKE 1 [facility] mg tablet 9-25 TABLET BY ity o f 00:00: MOUTH [place] 00 TWICE Medical DAILY . Branch APPOINTMEN T REQUIRED FOR FUTURE REFILLS glyBURIDE 5 Yes [id number] TAKE 1 [facility] mg tablet 9-25 TABLET BY ity o f 00:00: MOUTH [place] 00 TWICE Medical DAILY . Branch APPOINTMEN T REQUIRED FOR FUTURE REFILLS glyBURIDE 5 Yes [id number] TAKE 1 [facility] mg tablet 9-25 TABLET BY ity o f 00:00: MOUTH [place] 00 TWICE Medical DAILY . [place] APPOINTMEN T REQUIRED FOR FUTURE REFILLS glyBURIDE 5 2022-2022- No [id number] TAKE 1 [facility] mg tablet 9-25 10-30 TABLET BY ity of 00:00: 00:00 MOUTH [place] 00 :00 TWICE Medical DAILY . [place] APPOINTMEN T REQUIRED FOR FUTURE REFILLS glyBURIDE 5 2022- No [id number] TAKE 1 [facility] mg tablet 9-25 10-30 TABLET BY ity of 00:00: 00:00 MOUTH [place] 00 :00 TWICE Medical DAILY . [place] APPOINTMEN T REQUIRED FOR FUTURE REFILLS NOVOLIN N 2022-0 Yes [id number] INJECT 10 [facility] NPH U-100 9-21 UNITS ity of INSULIN 100 00:00: UNDER THE [place] unit/mL 00 SKIN IN Medical injection THE . INJECT ONLY IF FASTING BLOOD SUGAR GREATER THAN 150 NOVOLIN N 2022-0 Yes [id number] INJECT 10 [facility] NPH U-100 9-21 UNITS ity of INSULIN 100 00:00: UNDER THE [place] unit/mL 00 SKIN IN Medical injection THE . INJECT ONLY IF FASTING BLOOD SUGAR GREATER THAN 150 NOVOLIN N 2022-0 Yes [id number] INJECT 10 [facility] NPH U-100 9-21 UNITS ity of INSULIN 100 00:00: UNDER THE [place] unit/mL 00 SKIN IN Medical injection THE . INJECT ONLY IF FASTING BLOOD SUGAR GREATER THAN 150 NOVOLIN N 2022-0 Yes [id number] INJECT 10 [facility] NPH U-100 9-21 UNITS ity of INSULIN 100 00:00: UNDER THE [place] unit/mL 00 SKIN IN Medical injection THE . INJECT ONLY IF FASTING BLOOD SUGAR GREATER THAN 150 NOVOLIN N 2022-0 Yes [id number] INJECT 10 [facility] NPH U-100 9-21 UNITS ity of INSULIN 100 00:00: UNDER THE [place] unit/mL 00 SKIN IN Medical injection THE . INJECT ONLY IF FASTING BLOOD SUGAR GREATER THAN 150 NOVOLIN N 2022-0 Yes [id number] INJECT 10 [facility] NPH U-100 9-21 UNITS ity of INSULIN 100 00:00: UNDER THE [place] unit/mL 00 SKIN IN Medical injection THE . INJECT ONLY IF FASTING BLOOD SUGAR GREATER THAN 150 NOVOLIN N 2022-0 Yes [id number] INJECT 10 [facility] NPH U-100 9-21 UNITS ity of INSULIN 100 00:00: UNDER THE [place] unit/mL 00 SKIN IN Medical injection THE . INJECT ONLY IF FASTING BLOOD SUGAR GREATER THAN 150 NOVOLIN N 2023-0 Yes [id number] INJECT 10 [facility] NPH U-100 9-21 UNITS ity of INSULIN 100 00:00: UNDER THE [place] unit/mL 00 SKIN IN Medical injection THE . INJECT ONLY IF FASTING BLOOD SUGAR GREATER THAN 150 NOVOLIN N 2023-0 Yes [id number] INJECT 10 [facility] NPH U-100 9-21 UNITS ity of INSULIN 100 00:00: UNDER THE [place] unit/mL 00 SKIN IN Medical injection THE . INJECT ONLY IF FASTING BLOOD SUGAR GREATER THAN 150 NOVOLIN N 2023-0 Yes [id number] INJECT 10 [facility] NPH U-100 9-21 UNITS ity of INSULIN 100 00:00: UNDER THE [place] unit/mL 00 SKIN IN Medical injection THE . INJECT ONLY IF FASTING BLOOD SUGAR GREATER THAN 150 NOVOLIN N 2023-0 Yes [id number] INJECT 10 [facility] NPH U-100 9-21 UNITS ity of INSULIN 100 00:00: UNDER THE [place] unit/mL 00 SKIN IN Medical injection THE . INJECT ONLY IF FASTING BLOOD SUGAR GREATER THAN 150 NOVOLIN N 2023-0 Yes [id number] INJECT 10 [facility] NPH U-100 9-21 UNITS ity of INSULIN 100 00:00: UNDER THE [place] unit/mL 00 SKIN IN Medical injection THE . INJECT ONLY IF FASTING BLOOD SUGAR GREATER THAN 150 NOVOLIN N 2023-0 Yes [id number] INJECT 10 [facility] NPH U-100 9-21 UNITS ity of INSULIN 100 00:00: UNDER THE [place] unit/mL 00 SKIN IN Medical injection THE . INJECT ONLY IF FASTING BLOOD SUGAR GREATER THAN 150 NOVOLIN N 2023-0 Yes [id number] INJECT 10 [facility] NPH U-100 9-21 UNITS ity of INSULIN 100 00:00: UNDER THE [place] unit/mL 00 SKIN IN Medical injection THE . INJECT ONLY IF FASTING BLOOD SUGAR GREATER THAN 150 NOVOLIN N 2023-0 Yes [id number] INJECT 10 [facility] NPH U-100 9-21 UNITS ity of INSULIN 100 00:00: UNDER THE [place] unit/mL 00 SKIN IN Medical injection THE . INJECT ONLY IF FASTING BLOOD SUGAR GREATER THAN 150 NOVOLIN N 2023-0 Yes [id number] INJECT 10 [facility] NPH U-100 9-21 UNITS ity of INSULIN 100 00:00: UNDER THE [place] unit/mL 00 SKIN IN Medical injection THE . INJECT ONLY IF FASTING BLOOD SUGAR GREATER THAN 150 NOVOLIN N 2023-0 Yes [id number] INJECT 10 [facility] NPH U-100 9-21 UNITS ity of INSULIN 100 00:00: UNDER THE [place] unit/mL 00 SKIN IN Medical injection THE . INJECT ONLY IF FASTING BLOOD SUGAR GREATER THAN 150 NOVOLIN N 2023-0 Yes [id number] INJECT 10 [facility] NPH U-100 9-21 UNITS ity of INSULIN 100 00:00: UNDER THE [place] unit/mL 00 SKIN IN Medical injection THE . INJECT ONLY IF FASTING BLOOD SUGAR GREATER THAN 150 NOVOLIN N 2023-0 Yes [id number] INJECT 10 [facility] NPH U-100 9-21 UNITS ity of INSULIN 100 00:00: UNDER THE [place] unit/mL 00 SKIN IN Medical injection THE . INJECT ONLY IF FASTING BLOOD SUGAR GREATER THAN 150 NOVOLIN N 2023-0 Yes [id number] INJECT 10 [facility] NPH U-100 9-21 UNITS ity of INSULIN 100 00:00: UNDER THE [place] unit/mL 00 SKIN IN Medical injection THE . INJECT ONLY IF FASTING BLOOD SUGAR GREATER THAN 150 NOVOLIN N 2023-0 Yes [id number] INJECT 10 [facility] NPH U-100 9-21 UNITS ity of INSULIN 100 00:00: UNDER THE [place] unit/mL 00 SKIN IN Medical injection THE . INJECT ONLY IF FASTING BLOOD SUGAR GREATER THAN 150 NOVOLIN N 2023-0 Yes [id number] INJECT 10 [facility] NPH U-100 9-21 UNITS ity of INSULIN 100 00:00: UNDER THE [place] unit/mL 00 SKIN IN Medical injection THE . INJECT ONLY IF FASTING BLOOD SUGAR GREATER THAN 150 NOVOLIN N 2023-0 Yes [id number] INJECT 10 [facility] NPH U-100 9-21 UNITS ity of INSULIN 100 00:00: UNDER THE [place] unit/mL 00 SKIN IN Medical injection THE . INJECT ONLY IF FASTING BLOOD SUGAR GREATER THAN 150 NOVOLIN N 2023-0 Yes [id number] INJECT 10 [facility] NPH U-100 9-21 UNITS ity of INSULIN 100 00:00: UNDER THE [place] unit/mL 00 SKIN IN Medical injection THE Branch MORNING. INJECT ONLY IF FASTING BLOOD SUGAR GREATER THAN 150 PROMETHAZIN 202-0 Yes [id number] TAKE 2 [facility] E 12.5 mg 8-29 TABLETS BY ity of tablet 00:00: MOUTH [place] 00 EVERY 6 Medical HOURS Branch NEEDED FOR NAUSEA AND VOMITING PROMETHAZIN 2022-0 Yes [id number] TAKE 2 [facility] E 12.5 mg 8-29 TABLETS BY ity of tablet 00:00: MOUTH [place] 00 EVERY 6 Medical HOURS Branch NEEDED FOR NAUSEA AND VOMITING PROMETHAZIN 2022-0 Yes [id number] TAKE 2 [facility] E 12.5 mg 8-29 TABLETS BY ity of tablet 00:00: MOUTH [place] 00 EVERY 6 Medical HOURS Branch NEEDED FOR NAUSEA AND VOMITING PROMETHAZIN 2022-0 Yes [id number] TAKE 2 [facility] E 12.5 mg 8-29 TABLETS BY ity of tablet 00:00: MOUTH [place] 00 EVERY 6 Medical HOURS Branch NEEDED FOR NAUSEA AND VOMITING PROMETHAZIN 2022-0 Yes [id number] TAKE 2 [facility] E 12.5 mg 8-29 TABLETS BY ity of tablet 00:00: MOUTH [place] 00 EVERY 6 Medical HOURS Branch NEEDED FOR NAUSEA AND VOMITING PROMETHAZIN 2022-0 Yes [id number] TAKE 2 [facility] E 12.5 mg 8-29 TABLETS BY ity of tablet 00:00: MOUTH [place] 00 EVERY 6 Medical HOURS Branch NEEDED FOR NAUSEA AND VOMITING PROMETHAZIN 2022-0 Yes [id number] TAKE 2 [facility] E 12.5 mg 8-29 TABLETS BY ity of tablet 00:00: MOUTH [place] 00 EVERY 6 Medical HOURS Branch NEEDED FOR NAUSEA AND VOMITING PROMETHAZIN 2022-0 Yes [id number] TAKE 2 [facility] E 12.5 mg 8-29 TABLETS BY ity of tablet 00:00: MOUTH [place] 00 EVERY 6 Medical HOURS Branch NEEDED FOR NAUSEA AND VOMITING PROMETHAZIN 2022-0 Yes [id number] TAKE 2 [facility] E 12.5 mg 8-29 TABLETS BY ity of tablet 00:00: MOUTH [place] 00 EVERY 6 Medical HOURS Branch NEEDED FOR NAUSEA AND VOMITING PROMETHAZIN 2022-0 Yes [id number] TAKE 2 [facility] E 12.5 mg 8-29 TABLETS BY ity of tablet 00:00: MOUTH [place] 00 EVERY 6 Medical HOURS Branch NEEDED FOR NAUSEA AND VOMITING PROMETHAZIN 2022-0 Yes [id number] TAKE 2 [facility] E 12.5 mg 8-29 TABLETS BY ity of tablet 00:00: MOUTH [place] 00 EVERY 6 Medical HOURS Branch NEEDED FOR NAUSEA AND VOMITING PROMETHAZIN 2022-0 Yes [id number] TAKE 2 [facility] E 12.5 mg 8-29 TABLETS BY ity of tablet 00:00: MOUTH [place] 00 EVERY 6 Medical HOURS Branch NEEDED FOR NAUSEA AND VOMITING PROMETHAZIN 2022-0 Yes [id number] TAKE 2 [facility] E 12.5 mg 8-29 TABLETS BY ity of tablet 00:00: MOUTH [place] 00 EVERY 6 Medical HOURS Branch NEEDED FOR NAUSEA AND VOMITING PROMETHAZIN 2022-0 2023- No [id number] TAKE 2 [facility] E 12.5 mg 8-29 10-20 TABLETS BY ity of tablet 00:00: 00:00 MOUTH [place] 00 :00 EVERY 6 Medical HOURS Branch NEEDED FOR NAUSEA AND VOMITING lactated 2022-0 Yes 1000mL at 100 Unive rs ringers IV 8-28 mL/hr, ity of infusion 14:45: 1,000 mL, [place] 1,000 mL 00 IV Medical Infusion, Branch CONTINUOUS , Starting on Sun04/09/23 at 0945, Until Discontinu ed, Routine, PACU lactated 2022-0 2022- No 1000mL at 100 Univ ers ringers IV 8- 08-28 mL/hr, ity of infusion 14:45: 17:10 1,000 mL, [place] 1,000 mL 00 :30 IV Medical Infusion, Branch CONTINUOUS , Starting on Sun04/09/23 at 0945, Until Sun04/09/23 at 1210, Routine, PACU ondansetron 2022-0 Yes 4mg 4 mg, Slow [facility] (ZOFRAN 8-28 IV Push, ity of (PF)) 14:30: PRN, 1 [place] injection 4 37 dose, Medical mg Starting Branch on Sun04/09/23 at 0930, Until Discontinu ed, Routine, Nausea and Vomiting (N/V), PACU ondansetron 2022-0 2022- No 4mg 4 mg, Slow [facility] (ZOFRAN 8-28 08-28 IV Push, ity of (PF)) 14:30: 17:10 PRN, 1 [place] injection 4 37 :30 dose, Medical mg Starting Branch on Sun04/09/23 at 0930, Until Sun04/09/23 at 1210, Routine, Nausea and Vomiting (N/V), PACU lactated 2022- No IV [facility] ringers IV 04-09 Infusion, ity of infusion 13:54: 14:16 CONTINUOUS [place] 00 :45 PRN, Medical Starting Branch on Sun04/09/23 at 0854, Until Sun04/09/23 at 0916, Routine, Intra-op propofoL IV 0 2022- No IV Unive rs infusion 04-09 Infusion, ity o f 13:54: 14:16 ONCE INTRA [place] 00 :45 PROCEDURE, Medical Starting Branch on Sun04/09/23 at 0854, Until Sun04/09/23 at 0916, Routine, Intra-op lidocaine 2022- No Intravenou U nivers 2% 04-09 s, ONCE ity of (XYLOCAINE) 13:54: 14:16 INTRA [place] 20 mg/mL (2 00 :45 PROCEDURE, Me dical %) Starting Branch injection on Sun04/09/23 at 0854, Until Sun04/09/23 at 0916, Routine, Intra-op midazolam 2022- No IV Push, Uni vers (VERSED) 04-09 ONCE INTRA ity of injection 13:54: 14:16 PROCEDURE, [place] 00 :45 Starting Medical on Sun Branch 04/09/23 at 0854, Until Sun04/09/23 at 0916, Routine, Intra-op lactated 2022- No IV Univers ringers IV 04-09 Infusion, ity of infusion 13:54: 14:16 [place]UOUS [place] 00 :[place] PRN, Medical Starting Branch on Sun04/09/23 at 0854, Until Sun04/09/23 at 0916, Routine, Intra-op propofoL IV 2022- No IV Unive rs infusion 04-09 Infusion, ity o f 13:54: 14:16 ONCE INTRA [place] 00 :45 PROCEDURE, Medical Starting Branch on Sun04/09/23 at 0854, Until Sun04/09/23 at 0916, Routine, Intra-op lidocaine 2022- No Intravenou U nivers 2% 04-09 s, ONCE ity of (XYLOCAINE) 13:54: 14:16 [place]TRA [place] 20 mg/mL (2 00 :45 PROCEDURE, Me dical %) Starting Branch injection on Sun04/09/23 at 0854, Until Sun04/09/23 at 0916, Routine, Intra-op midazolam 2022- No IV Push, Uni vers (VERSED) 04-09 ONCE INTRA ity of injection 13:54: 14:16 PROCEDURE, [place] 00 :45 Starting Medical on Sun Branch 04/09/23 at 0854, Until Sun04/09/23 at 0916, Routine, Intra-op lactated 2022- No 1000mL at 42 Un[facility] rs ringers IV 04-09 mL/hr, ity of infusion 12:45: 13:04 1,000 mL, [place] 1,000 mL 00 :00 IV Medical Infusion, Branch ONCE, 1 dose, On Sun04/09/23 at 0745, Routine, Endo Pre-op lactated 0 2022- No 1000mL at 42 Unive rs ringers IV 04-09 mL/hr, ity of infusion 12:45: 13:04 1,000 mL, [place] 1,000 mL 00 :00 IV Medical Infusion, Branch ONCE, 1 dose, On Sun04/09/23 at 0745, Routine, Endo Pre-op semaglutide 2022-0 Yes [id number] INJECT TWO [facility] (OZEMPIC) 2 8-22 (2) MG ity of mg/dose (8 00:00: UNDER THE [place] mg/3 mL) 00 SKIN ONCE Medica l PnIj WEEKLY. Branch semaglutide Yes [id number] INJECT TWO [facility] (OZEMPIC) 2 8-22 (2) MG ity of mg/dose (8 00:00: UNDER THE [place] mg/3 mL) 00 SKIN ONCE Medica l PnIj WEEKLY. Branch semaglutide Yes [id number] INJECT TWO [facility] (OZEMPIC) 2 8-22 (2) MG ity of mg/dose (8 00:00: UNDER THE [place] mg/3 mL) 00 SKIN ONCE Medica l PnIj WEEKLY. Branch semaglutide Yes [id number] INJECT TWO [facility] (OZEMPIC) 2 8-22 (2) MG ity of mg/dose (8 00:00: UNDER THE [place] mg/3 mL) 00 SKIN ONCE Medica l PnIj WEEKLY. Branch semaglutide Yes [id number] INJECT TWO [facility] (OZEMPIC) 2 8-22 (2) MG ity of mg/dose (8 00:00: UNDER THE [place] mg/3 mL) 00 SKIN ONCE Medica l PnIj WEEKLY. Branch semaglutide Yes [id number] INJECT TWO [facility] (OZEMPIC) 2 8-22 (2) MG ity of mg/dose (8 00:00: UNDER THE [place] mg/3 mL) 00 SKIN ONCE Medica l PnIj WEEKLY. Branch semaglutide Yes [id number] INJECT TWO [facility] (OZEMPIC) 2 8-22 (2) MG ity of mg/dose (8 00:00: UNDER THE [place] mg/3 mL) 00 SKIN ONCE Medica l PnIj WEEKLY. Branch semaglutide Yes [id number] INJECT TWO [facility] (OZEMPIC) 2 8-22 (2) MG ity of mg/dose (8 00:00: UNDER THE [place] mg/3 mL) 00 SKIN ONCE Medica l PnIj WEEKLY. Branch semaglutide Yes [id number] INJECT TWO [facility] (OZEMPIC) 2 8-22 (2) MG ity of mg/dose (8 00:00: UNDER THE [place] mg/3 mL) 00 SKIN ONCE Medica l PnIj WEEKLY. Branch semaglutide Yes [id number] INJECT TWO [facility] (OZEMPIC) 2 8-22 (2) MG ity of mg/dose (8 00:00: UNDER THE [place] mg/3 mL) 00 SKIN ONCE Medica l PnIj WEEKLY. Branch semaglutide Yes [id number] INJECT TWO [facility] (OZEMPIC) 2 8-22 (2) MG ity of mg/dose (8 00:00: UNDER THE [place] mg/3 mL) 00 SKIN ONCE Medica l PnIj WEEKLY. Branch semaglutide Yes [id number] INJECT TWO [facility] (OZEMPIC) 2 8-22 (2) MG ity of mg/dose (8 00:00: UNDER THE [place] mg/3 mL) 00 SKIN ONCE Medica l PnIj WEEKLY. Branch semaglutide Yes [id number] INJECT TWO [facility] (OZEMPIC) 2 8-22 (2) MG ity of mg/dose (8 00:00: UNDER THE [place] mg/3 mL) 00 SKIN ONCE Medica l PnIj WEEKLY. Branch semaglutide Yes [id number] INJECT TWO [facility] (OZEMPIC) 2 8-22 (2) MG ity of mg/dose (8 00:00: UNDER THE [place] mg/3 mL) 00 SKIN ONCE Medica l PnIj WEEKLY. Branch semaglutide Yes [id number] INJECT TWO [facility] (OZEMPIC) 2 8-22 (2) MG ity of mg/dose (8 00:00: UNDER THE [place] mg/3 mL) 00 SKIN ONCE Medica l PnIj WEEKLY. Branch semaglutide Yes [id number] INJECT TWO [facility] (OZEMPIC) 2 8-22 (2) MG ity of mg/dose (8 00:00: UNDER THE [place] mg/3 mL) 00 SKIN ONCE Medica l PnIj WEEKLY. Branch semaglutide Yes [id number] INJECT TWO [facility] (OZEMPIC) 2 8-22 (2) MG ity of mg/dose (8 00:00: UNDER THE [place] mg/3 mL) 00 SKIN ONCE Medica l PnIj WEEKLY. Branch semaglutide Yes [id number] INJECT TWO [facility] (OZEMPIC) 2 8-22 (2) MG ity of mg/dose (8 00:00: UNDER THE [place] mg/3 mL) 00 SKIN ONCE Medica l PnIj WEEKLY. Branch semaglutide Yes [id number] INJECT TWO [facility] (OZEMPIC) 2 8-22 (2) MG ity of mg/dose (8 00:00: UNDER THE [place] mg/3 mL) 00 SKIN ONCE Medica l PnIj WEEKLY. Branch semaglutide Yes [id number] INJECT TWO [facility] (OZEMPIC) 2 8-22 (2) MG ity of mg/dose (8 00:00: UNDER THE [place] mg/3 mL) 00 SKIN ONCE Medica l PnIj WEEKLY. Branch semaglutide Yes [id number] INJECT TWO [facility] (OZEMPIC) 2 8-22 (2) MG ity of mg/dose (8 00:00: UNDER THE [place] mg/3 mL) 00 SKIN ONCE Medica l PnIj WEEKLY. Branch semaglutide Yes [id number] INJECT TWO [facility] (OZEMPIC) 2 8-22 (2) MG ity of mg/dose (8 00:00: UNDER THE [place] mg/3 mL) 00 SKIN ONCE Medica l PnIj WEEKLY. Branch semaglutide Yes [id number] INJECT TWO [facility] (OZEMPIC) 2 8-22 (2) MG ity of mg/dose (8 00:00: UNDER THE [place] mg/3 mL) 00 SKIN ONCE Medica l PnIj WEEKLY. Branch semaglutide Yes [id number] INJECT TWO [facility] (OZEMPIC) 2 8-22 (2) MG ity of mg/dose (8 00:00: UNDER THE [place] mg/3 mL) 00 SKIN ONCE Medica l PnIj WEEKLY. Branch semaglutide Yes [id number] INJECT TWO [facility] (OZEMPIC) 2 8-22 (2) MG ity of mg/dose (8 00:00: UNDER THE [place] mg/3 mL) 00 SKIN ONCE Medica l PnIj WEEKLY. Branch semaglutide 2022- No [id number] INJECT TWO [facility] (OZEMPIC) 2 8-22 10-30 (2) MG ity o f mg/dose (8 00:00: 00:00 UNDER THE [place] mg/3 mL) 00 :00 SKIN ONCE Medica l PnIj WEEKLY. Branch semaglutide 2022- No [id number] INJECT TWO [facility] (OZEMPIC) 2 8-22 10-30 (2) MG ity o f mg/dose (8 00:00: 00:00 UNDER THE [place] mg/3 mL) 00 :00 SKIN ONCE Medica l PnIj WEEKLY. Branch NOVOLIN N 2023-0 Yes [id number] INJECT 10 [facility] NPH U-100 8-15 UNITS ity of INSULIN 100 00:00: UNDER THE [place] unit/mL 00 SKIN IN Medical injection THE . INJECT ONLY IF FASTING BLOOD SUGAR GREATER THAN 150 NOVOLIN N 2022-0 Yes [id number] INJECT 10 [facility] NPH U-100 8-15 UNITS ity of INSULIN 100 00:00: UNDER THE [place] unit/mL 00 SKIN IN Medical injection THE . INJECT ONLY IF FASTING BLOOD SUGAR GREATER THAN 150 NOVOLIN N 2022-0 Yes [id number] INJECT 10 [facility] NPH U-100 8-15 UNITS ity of INSULIN 100 00:00: UNDER THE [place] unit/mL 00 SKIN IN Medical injection THE . INJECT ONLY IF FASTING BLOOD SUGAR GREATER THAN 150 NOVOLIN N 2022-0 Yes [id number] INJECT 10 [facility] NPH U-100 8-15 UNITS ity of INSULIN 100 00:00: UNDER THE [place] unit/mL 00 SKIN IN Medical injection THE . INJECT ONLY IF FASTING BLOOD SUGAR GREATER THAN 150 NOVOLIN N 2022-0 Yes [id number] INJECT 10 [facility] NPH U-100 8-15 UNITS ity of INSULIN 100 00:00: UNDER THE [place] unit/mL 00 SKIN IN Medical injection THE . INJECT ONLY IF FASTING BLOOD SUGAR GREATER THAN 150 NOVOLIN N 2022-0 Yes [id number] INJECT 10 [facility] NPH U-100 8-15 UNITS ity of INSULIN 100 00:00: UNDER THE [place] unit/mL 00 SKIN IN Medical injection THE . INJECT ONLY IF FASTING BLOOD SUGAR GREATER THAN 150 NOVOLIN N 2022-0 Yes [id number] INJECT 10 [facility] NPH U-100 8-15 UNITS ity of INSULIN 100 00:00: UNDER THE [place] unit/mL 00 SKIN IN Medical injection THE . INJECT ONLY IF FASTING BLOOD SUGAR GREATER THAN 150 NOVOLIN N 2023-0 Yes [id number] INJECT 10 [facility] NPH U-100 8-15 UNITS ity of INSULIN 100 00:00: UNDER THE [place] unit/mL 00 SKIN IN Medical injection THE . INJECT ONLY IF FASTING BLOOD SUGAR GREATER THAN 150 NOVOLIN N 3-0 Yes [id number] INJECT 10 [facility] NPH U-100 8-15 UNITS ity of INSULIN 100 00:00: UNDER THE [place] unit/mL 00 SKIN IN Medical injection THE . INJECT ONLY IF FASTING BLOOD SUGAR GREATER THAN 150 NOVOLIN N 2022-0 Yes [id number] INJECT 10 [facility] NPH U-100 8-15 UNITS ity of INSULIN 100 00:00: UNDER THE [place] unit/mL 00 SKIN IN Medical injection THE . INJECT ONLY IF FASTING BLOOD SUGAR GREATER THAN 150 NOVOLIN N 2022-0 Yes [id number] INJECT 10 [facility] NPH U-100 8-15 UNITS ity of INSULIN 100 00:00: UNDER THE [place] unit/mL 00 SKIN IN Medical injection THE . INJECT ONLY IF FASTING BLOOD SUGAR GREATER THAN 150 NOVOLIN N 2022-0 Yes [id number] INJECT 10 [facility] NPH U-100 8-15 UNITS ity of INSULIN 100 00:00: UNDER THE [place] unit/mL 00 SKIN IN Medical injection THE . INJECT ONLY IF FASTING BLOOD SUGAR GREATER THAN 150 NOVOLIN N 2022-0 Yes [id number] INJECT 10 [facility] NPH U-100 8-15 UNITS ity of INSULIN 100 00:00: UNDER THE [place] unit/mL 00 SKIN IN Medical injection THE . INJECT ONLY IF FASTING BLOOD SUGAR GREATER THAN 150 NOVOLIN N 2022-0 Yes [id number] INJECT 10 [facility] NPH U-100 8-15 UNITS ity of INSULIN 100 00:00: UNDER THE [place] unit/mL 00 SKIN IN Medical injection THE . INJECT ONLY IF FASTING BLOOD SUGAR GREATER THAN 150 NOVOLIN N 2022-0 2022- No [id number] INJECT 10 [facility] NPH U-100 8-15 09-21 UNITS ity of INSULIN 100 00:00: 00:00 UNDER THE [place] unit/mL 00 :00 SKIN IN Medical injection THE . INJECT ONLY IF FASTING BLOOD SUGAR GREATER THAN 150 JARDI[place] 2022-0 Yes [id number] TAKE 1 U nivers 25 mg Tab 8-02 TABLET BY ity o f 00:00: MOUTH ONCE [place] 00 DAILY IN Medical THE Branch MORNING metformin 2022-0 Yes [id number] TAKE 2 U nivers ER 500 mg 8-02 TABLETS BY ity of 24 hr 00:00: MOUTH IN [place] tablet 00 MORNING Branch AND TAKE 3 TABLETS IN THE EVENING( NEEDS APPOINTMEN T) JARDIANCE 2022-0 Yes [id number] TAKE 1 U nivers 25 mg Tab 8-02 TABLET BY ity o f 00:00: MOUTH ONCE [place] 00 DAILY IN [facility] THE [place] MORNING metformin 2022-0 Yes [id number] TAKE 2 U nivers ER 500 mg 8-02 TABLETS BY ity of 24 hr 00:00: MOUTH IN [place] tablet 00 THE [facility] MORNING Branch AND TAKE 3 TABLETS IN THE EVENING( NEEDS APPOINTMEN T) JARDIANCE 0 Yes [id number] TAKE 1 U nivers 25 mg Tab 8-02 TABLET BY ity o f 00:00: MOUTH ONCE [place] 00 DAILY IN [facility] THE [place] MORNING metformin 2022-0 Yes [id number] TAKE 2 U nivers ER 500 mg 8-02 TABLETS BY ity of 24 hr 00:00: MOUTH IN [place] tablet THE Medical MORNING Branch AND TAKE 3 TABLETS IN THE EVENING( NEEDS APPOINTMEN T) JARDIANCE Yes [id number] TAKE 1 U nivers 25 mg Tab 8-02 TABLET BY ity o f 00:00: MOUTH ONCE [place] 00 DAILY IN [facility] MORNING metformin 2022-0 Yes [id number] TAKE 2 U nivers ER 500 mg 8-02 TABLETS BY ity of 24 hr 00:00: MOUTH IN [place] tablet THE Medical MORNING Branch AND TAKE 3 TABLETS IN THE EVENING( NEEDS APPOINTMEN T) JARDIANCE 0 Yes [id number] TAKE 1 U nivers 25 mg Tab 8-02 TABLET BY ity o f 00:00: MOUTH ONCE [place] 00 DAILY IN [facility] MORNING metformin 2022-0 Yes [id number] TAKE 2 U nivers ER 500 mg 8-02 TABLETS BY ity of 24 hr 00:00: MOUTH IN [place] tablet THE Medical MORNING Branch AND TAKE 3 TABLETS IN THE EVENING( NEEDS APPOINTMEN T) JARDIANCE 0 Yes [id number] TAKE 1 U nivers 25 mg Tab 8-02 TABLET BY ity o f 00:00: MOUTH ONCE [place] 00 DAILY IN [facility] MORNING metformin 2022-0 Yes [id number] TAKE 2 U nivers ER 500 mg 8-02 TABLETS BY ity of 24 hr 00:00: MOUTH IN [place] tablet 00 THE [facility] MORNING Branch AND TAKE 3 TABLETS IN THE EVENING( NEEDS APPOINTMEN T) JARDIANCE 2022-0 Yes [id number] TAKE 1 U nivers 25 mg Tab 8-02 TABLET BY ity o f 00:00: MOUTH ONCE [place] 00 DAILY IN [facility] MORNING metformin 2022-0 Yes [id number] TAKE 2 U nivers ER 500 mg 8-02 TABLETS BY ity of 24 hr 00:00: MOUTH IN [place] tablet 00 THE Medical MORNING Branch AND TAKE 3 TABLETS IN THE EVENING( NEEDS APPOINTMEN T) JARDIANCE Yes [id number] TAKE 1 U nivers 25 mg Tab 8-02 TABLET BY ity o f 00:00: MOUTH ONCE [place] 00 DAILY IN [facility] THE [place] MORNING metformin 2022-0 Yes [id number] TAKE 2 U nivers ER 500 mg 8-02 TABLETS BY ity of 24 hr 00:00: MOUTH IN [place] tablet 00 THE Medical MORNING Branch AND TAKE 3 TABLETS IN THE EVENING( NEEDS APPOINTMEN T) JARDIANCE Yes [id number] TAKE 1 U nivers 25 mg Tab 8-02 TABLET BY ity o f 00:00: MOUTH ONCE [place] 00 DAILY IN [facility] MORNING metformin 2022-0 Yes [id number] TAKE 2 U nivers ER 500 mg 8-02 TABLETS BY ity of 24 hr 00:00: MOUTH IN [place] tablet THE [facility] MORNING Branch AND TAKE 3 TABLETS IN THE EVENING( NEEDS APPOINTMEN T) JARDIANCE Yes [id number] TAKE 1 U nivers 25 mg Tab 8-02 TABLET BY ity o f 00:00: MOUTH ONCE [place] 00 DAILY IN [facility] MORNING metformin 0 Yes [id number] TAKE 2 U nivers ER 500 mg 8-02 TABLETS BY ity of 24 hr 00:00: MOUTH IN [place] tablet THE Medical MORNING Branch AND TAKE 3 TABLETS IN THE EVENING( NEEDS APPOINTMEN T) JARDIANCE Yes [id number] TAKE 1 U nivers 25 mg Tab 8-02 TABLET BY ity o f 00:00: MOUTH ONCE [place] 00 DAILY IN [facility] MORNING metformin 2022-0 Yes [id number] TAKE 2 U nivers ER 500 mg 8-02 TABLETS BY ity of 24 hr 00:00: MOUTH IN [place] tablet 00 THE [facility] MORNING Branch AND TAKE 3 TABLETS IN THE EVENING( NEEDS APPOINTMEN T) JARDIANCE Yes [id number] TAKE 1 U nivers 25 mg Tab 8-02 TABLET BY ity o f 00:00: MOUTH ONCE [place] 00 DAILY IN [facility] MORNING metformin 2022-0 Yes [id number] TAKE 2 U nivers ER 500 mg 8-02 TABLETS BY ity of 24 hr 00:00: MOUTH IN [place] tablet 00 THE Medical MORNING Branch AND TAKE 3 TABLETS IN THE EVENING( NEEDS APPOINTMEN T) JARDIANCE Yes [id number] TAKE 1 U nivers 25 mg Tab 8-02 TABLET BY ity o f 00:00: MOUTH ONCE [place] 00 DAILY IN Medical THE Branch MORNING metformin 2022-0 Yes [id number] TAKE 2 U nivers ER 500 mg 8-02 TABLETS BY ity of 24 hr 00:00: MOUTH IN [place] tablet 00 THE Medical MORNING Branch AND TAKE 3 TABLETS IN THE EVENING( NEEDS APPOINTMEN T) JARDIANCE Yes [id number] TAKE 1 U nivers 25 mg Tab 8-02 TABLET BY ity o f 00:00: MOUTH ONCE [place] 00 DAILY IN Medical THE Branch MORNING metformin 2022-0 Yes [id number] TAKE 2 U nivers ER 500 mg 8-02 TABLETS BY ity of 24 hr 00:00: MOUTH IN [place] tablet 00 THE Medical MORNING Branch AND TAKE 3 TABLETS IN THE EVENING( NEEDS APPOINTMEN T) JARDIANCE Yes [id number] TAKE 1 U nivers 25 mg Tab 8-02 TABLET BY ity o f 00:00: MOUTH ONCE [place] 00 DAILY IN [facility] THE [place] MORNING metformin 2022-0 Yes [id number] TAKE 2 U nivers ER 500 mg 8-02 TABLETS BY ity of 24 hr 00:00: MOUTH IN [place] tablet 00 THE Medical MORNING Branch AND TAKE 3 TABLETS IN THE EVENING( NEEDS APPOINTMEN T) JARDIANCE 0 Yes [id number] TAKE 1 U nivers 25 mg Tab 8-02 TABLET BY ity o f 00:00: MOUTH ONCE [place] 00 DAILY IN Medical THE [place] MORNING metformin 2022-0 Yes [id number] TAKE 2 U nivers ER 500 mg 8-02 TABLETS BY ity of 24 hr 00:00: MOUTH IN [place] tablet 00 THE Medical MORNING Branch AND TAKE 3 TABLETS IN THE EVENING( NEEDS APPOINTMEN T) JARDIANCE 0 Yes [id number] TAKE 1 U nivers 25 mg Tab 8-02 TABLET BY ity o f 00:00: MOUTH ONCE [place] 00 DAILY IN Medical THE [place] MORNING metformin 2022-0 Yes [id number] TAKE 2 U nivers ER 500 mg 8-02 TABLETS BY ity of 24 hr 00:00: MOUTH IN [place] tablet 00 THE Medical MORNING Branch AND TAKE 3 TABLETS IN THE EVENING( NEEDS APPOINTMEN T) JARDIANCE Yes [id number] TAKE 1 U nivers 25 mg Tab 8-02 TABLET BY ity o f 00:00: MOUTH ONCE [place] 00 DAILY IN Medical THE [place] MORNING metformin 2022-0 Yes [id number] TAKE 2 U nivers ER 500 mg 8-02 TABLETS BY ity of 24 hr 00:00: MOUTH IN [place] tablet 00 THE Medical MORNING Branch AND TAKE 3 TABLETS IN THE EVENING( NEEDS APPOINTMEN T) JARDIANCE 0 Yes [id number] TAKE 1 U nivers 25 mg Tab 8-02 TABLET BY ity o f 00:00: MOUTH ONCE [place] 00 DAILY IN [facility] THE [place] MORNING metformin 2022-0 Yes [id number] TAKE 2 U nivers ER 500 mg 8-02 TABLETS BY ity of 24 hr 00:00: MOUTH IN [place] tablet 00 THE Medical MORNING Branch AND TAKE 3 TABLETS IN THE EVENING( NEEDS APPOINTMEN T) JARDIANCE 0 Yes [id number] TAKE 1 U nivers 25 mg Tab 8-02 TABLET BY ity o f 00:00: MOUTH ONCE [place] 00 DAILY IN [facility] THE [place] MORNING metformin 2022-0 Yes [id number] TAKE 2 U nivers ER 500 mg 8-02 TABLETS BY ity of 24 hr 00:00: MOUTH IN [place] tablet 00 THE Medical MORNING Branch AND TAKE 3 TABLETS IN THE EVENING( NEEDS APPOINTMEN T) JARDIANCE 2022-0 Yes [id number] TAKE 1 U nivers 25 mg Tab 8-02 TABLET BY ity o f 00:00: MOUTH ONCE [place] 00 DAILY IN [facility] THE [place] MORNING metformin 2022-0 Yes [id number] TAKE 2 U nivers ER 500 mg 8-02 TABLETS BY ity of 24 hr 00:00: MOUTH IN [place] tablet 00 THE Medical MORNING Branch AND TAKE 3 TABLETS IN THE EVENING( NEEDS APPOINTMEN T) JARDIANCE 0 Yes [id number] TAKE 1 U nivers 25 mg Tab 8-02 TABLET BY ity o f 00:00: MOUTH ONCE [place] 00 DAILY IN [facility] THE [place] MORNING metformin 2022-0 Yes [id number] TAKE 2 U nivers ER 500 mg 8-02 TABLETS BY ity of 24 hr 00:00: MOUTH IN [place] tablet 00 THE Medical MORNING Branch AND TAKE 3 TABLETS IN THE EVENING( NEEDS APPOINTMEN T) JARDIANCE Yes [id number] TAKE 1 U nivers 25 mg Tab 8-02 TABLET BY ity o f 00:00: MOUTH ONCE [place] 00 DAILY IN Medical THE Branch MORNING metformin 2022-0 Yes [id number] TAKE 2 U nivers ER 500 mg 8-02 TABLETS BY ity of 24 hr 00:00: MOUTH IN [place] tablet 00 THE Medical MORNING Branch AND TAKE 3 TABLETS IN THE EVENING( NEEDS APPOINTMEN T) JARDIANCE Yes [id number] TAKE 1 U nivers 25 mg Tab 8-02 TABLET BY ity o f 00:00: MOUTH ONCE [place] 00 DAILY IN Medical THE Branch MORNING metformin 0 Yes [id number] TAKE 2 U nivers ER 500 mg 8-02 TABLETS BY ity of 24 hr 00:00: MOUTH IN [place] tablet 00 THE Medical MORNING Branch AND TAKE 3 TABLETS IN THE EVENING( NEEDS APPOINTMEN T) JARDIANCE Yes [id number] TAKE 1 U nivers 25 mg Tab 8-02 TABLET BY ity o f 00:00: MOUTH ONCE [place] 00 DAILY IN [facility] THE [place] MORNING metformin 0 Yes [id number] TAKE 2 U nivers ER 500 mg 8-02 TABLETS BY ity of 24 hr 00:00: MOUTH IN [place] tablet THE Medical MORNING Branch AND TAKE 3 TABLETS IN THE EVENING( NEEDS APPOINTMEN T) JARDIANCE Yes [id number] TAKE 1 U nivers 25 mg Tab 8-02 TABLET BY ity o f 00:00: MOUTH ONCE [place] 00 DAILY IN [facility] THE [place] MORNING metformin 2022-0 Yes [id number] TAKE 2 U nivers ER 500 mg 8-02 TABLETS BY ity of 24 hr 00:00: MOUTH IN [place] tablet 00 THE Medical MORNING Branch AND TAKE 3 TABLETS IN THE EVENING( NEEDS APPOINTMEN T) JARDIANCE Yes [id number] TAKE 1 U nivers 25 mg Tab 8-02 TABLET BY ity o f 00:00: MOUTH ONCE [place] 00 DAILY IN Medical THE [place] MORNING metformin 2022-0 Yes [id number] TAKE 2 U nivers ER 500 mg 8-02 TABLETS BY ity of 24 hr 00:00: MOUTH IN [place] tablet 00 THE Medical MORNING Branch AND TAKE 3 TABLETS IN THE EVENING( NEEDS APPOINTMEN T) JARDIANCE Yes [id number] TAKE 1 U nivers 25 mg Tab 8-02 TABLET BY ity o f 00:00: MOUTH ONCE [place] 00 DAILY IN Medical THE [place] MORNING metformin 2022-0 Yes [id number] TAKE 2 U nivers ER 500 mg 8-02 TABLETS BY ity of 24 hr 00:00: MOUTH IN [place] tablet 00 THE Medical MORNING Branch AND TAKE 3 TABLETS IN THE EVENING( NEEDS APPOINTMEN T) JARDIANCE Yes [id number] TAKE 1 U nivers 25 mg Tab 8-02 TABLET BY ity o f 00:00: MOUTH ONCE [place] 00 DAILY IN [facility] THE [place] MORNING metformin Yes [id number] TAKE 2 U nivers ER 500 mg 8-02 TABLETS BY ity of 24 hr 00:00: MOUTH IN [place] tablet 00 THE Medical MORNING Branch AND TAKE 3 TABLETS IN THE EVENING( NEEDS APPOINTMEN T) JARDIANCE Yes [id number] TAKE 1 U nivers 25 mg Tab 8-02 TABLET BY ity o f 00:00: MOUTH ONCE [place] 00 DAILY IN [facility] THE [place] MORNING metformin 0 Yes [id number] TAKE 2 U nivers ER 500 mg 8-02 TABLETS BY ity of 24 hr 00:00: MOUTH IN [place] tablet 00 THE Medical MORNING Branch AND TAKE 3 TABLETS IN THE EVENING( NEEDS APPOINTMEN T) JARDIANCE Yes [id number] TAKE 1 U nivers 25 mg Tab 8-02 TABLET BY ity o f 00:00: MOUTH ONCE [place] 00 DAILY IN [facility] THE [place] MORNING metformin 0 Yes [id number] TAKE 2 U nivers ER 500 mg 8-02 TABLETS BY ity of 24 hr 00:00: MOUTH IN [place] tablet 00 THE Medical MORNING Branch AND TAKE 3 TABLETS IN THE EVENING( NEEDS APPOINTMEN T) JARDIANCE 2022- No [id number] TAKE 1 [facility] 25 mg Tab 8-02 10-30 TABLET BY ity of 00:00: 00:00 MOUTH ONCE [place] 00 :00 DAILY IN [facility] MORNING metformin 2022-0 2022- No [id number] TAKE 2 Univers ER 500 mg 8-02 10-30 TABLETS BY ity of 24 hr 00:00: 00:00 MOUTH IN [place] tablet 00 :00 THE Medical MORNING Branch AND TAKE 3 TABLETS IN THE EVENING( NEEDS APPOINTMEN T) JARDIANCE 0 2022- No [id number] TAKE 1 [facility] 25 mg Tab 8-02 10-30 TABLET BY ity of 00:00: 00:00 MOUTH ONCE [place] 00 :00 DAILY IN Medical THE Branch MORNING metformin 2022-0 2022- No [id number] TAKE 2 Univers ER 500 mg 8-02 10-30 TABLETS BY ity of 24 hr 00:00: 00:00 MOUTH IN [place] tablet 00 :00 THE Medical MORNING Branch AND TAKE 3 TABLETS IN THE EVENING( NEEDS APPOINTMEN T) celecoxib 2022-0 Yes [id number] 100mg Take 1 Un joby 100 mg 8-01 capsule by ity of capsule 00:00: mouth in [place] 00 the Medical morning Branch and 1 capsule in the evening. Take with meals. Miscellaneo 2022-0 Yes [id number] Use as [facility] [place] 03-13 directed ity o f Supply Kit 00:00: [place] 00 Medical Branch tiZANidine 2022-0 Yes [id number] Take 1 U nivers 4 mg tablet 8-01 tablet ity of 00:00: morning [place] 00 and Medical afternoon, Branch 2 tablets at bedtime gabapentin 2022-0 Yes [id number] 800mg Take 1 [facility] 800 mg 8-01 tablet by ity of tablet 00:00: mouth at [place] [address] bedtime. Medical Branch gabapentin 2022-0 Yes [id number] 600mg Take 1 [facility] 600 mg 8-01 tablet by ity of tablet 00:00: mouth in [place] 00 the Medical morning Branch and 1 tablet in the evening. celecoxib 2022-0 Yes [id number] 100mg Take 1 Un joby 100 mg 8-01 capsule by ity of capsule 00:00: mouth in [place] 00 the Medical morning Branch and 1 capsule in the evening. Take with meals. Miscellaneo 2022-0 Yes [id number] Use as [facility] [place] 03-13 directed ity o f Supply Kit 00:00: [place] 00 Medical Branch tiZANidine 2022-0 Yes [id number] Take 1 U nivers 4 mg tablet 8-01 tablet ity of 00:00: morning [place] 00 and Medical afternoon, Branch 2 tablets at bedtime gabapentin 3-0 Yes [id number] 800mg Take 1 [facility] 800 mg 8-01 tablet by ity of tablet 00:00: mouth at [place] [address] bedtime. Medical Branch gabapentin 2022-0 Yes [id number] 600mg Take 1 [facility] 600 mg 8-01 tablet by ity of tablet 00:00: mouth in [place] the Medical morning Branch and 1 tablet in the evening. celecoxib 2023-0 Yes [id number] 100mg Take 1 Un joby 100 mg 8-01 capsule by ity of capsule 00:00: mouth in [place] 00 the Medical morning Branch and 1 capsule in the evening. Take with meals. Miscellaneo 2023-0 Yes [id number] Use as [facility] [place] 03-13 directed ity o f Supply Kit 00:00: [place] 00 Medical Branch tiZANidine 2023-0 Yes [id number] Take 1 U nivers 4 mg tablet 8-01 tablet ity of 00:00: morning [place] 00 and Medical afternoon, Branch 2 tablets at bedtime gabapentin 2023-0 Yes [id number] 800mg Take 1 [facility] 800 mg 8-01 tablet by ity of tablet 00:00: mouth at [place] [address] bedtime. Medical Branch gabapentin 2023-0 Yes [id number] 600mg Take 1 [facility] 600 mg 8-01 tablet by ity of tablet 00:00: mouth in [place] [address] the Medical morning Branch and 1 tablet in the evening. celecoxib 2023-0 Yes [id number] 100mg Take 1 Un joby 100 mg 8-01 capsule by ity of capsule 00:00: mouth in [place] [address] the Medical morning Branch and 1 capsule in the evening. Take with meals. Miscellaneo 2023-0 Yes [id number] Use as [facility] [place] 03-13 directed ity o f Supply Kit 00:00: [place] 00 Medical Branch tiZANidine 2023-0 Yes [id number] Take 1 U nivers 4 mg tablet 8-01 tablet ity of 00:00: morning [place] [address] and Medical afternoon, Branch 2 tablets at bedtime gabapentin 2023-0 Yes [id number] 800mg Take 1 [facility] 800 mg 8-01 tablet by ity of tablet 00:00: mouth at [place] [address] bedtime. Medical Branch gabapentin 2023-0 Yes [id number] 600mg Take 1 [facility] 600 mg 8-01 tablet by ity of tablet 00:00: mouth in [place] [address] the Medical morning Branch and 1 tablet in the evening. celecoxib 2023-0 Yes [id number] 100mg Take 1 Un joby 100 mg 8-01 capsule by ity of capsule 00:00: mouth in [place] 00 the Medical morning Branch and 1 capsule in the evening. Take with meals. Miscellaneo 2023-0 Yes [id number] Use as [facility] [place] 03-13 directed ity o f Supply Kit 00:00: [place] 00 Medical Branch tiZANidine 2023-0 Yes [id number] Take 1 [facility] nivers 4 mg tablet 8-01 tablet ity of 00:00: morning [place] 00 and Medical afternoon, Branch 2 tablets at bedtime gabapentin 2023-0 Yes [id number] 800mg Take 1 [facility] 800 mg 8-01 tablet by ity of tablet 00:00: mouth at [place] [address] bedtime. Medical Branch gabapentin 2023-0 Yes [id number] 600mg Take 1 [facility] 600 mg 8-01 tablet by ity of tablet 00:00: mouth in [place] 00 the Medical morning Branch and 1 tablet in the evening. celecoxib 2023-0 Yes [id number] 100mg Take 1 Un job[facility] 100 mg 8-01 capsule by ity of capsule 00:00: mouth in [place] [address] the Medical morning Branch and 1 capsule in the evening. Take with meals. Miscellaneo 2023-0 Yes [id number] Use as [facility] [place] 03-13 directed ity o f Supply Kit 00:00: [place] 00 [facility] tiZANidine 2023-0 Yes [id number] Take 1 U nivers 4 mg tablet 8-01 tablet ity of 00:00: morning [place] 00 and Medical afternoon, Branch 2 tablets at bedtime gabapentin 2023-0 Yes [id number] 800mg Take 1 [facility] 800 mg 8-01 tablet by ity of tablet 00:00: mouth at [place] [address] bedtime. Medical Branch gabapentin 2023-0 Yes [id number] 600mg Take 1 [facility] 600 mg 8-01 tablet by ity of tablet 00:00: mouth in [place] [address] the Medical morning Branch and 1 tablet in the evening. celecoxib 2023-0 Yes [id number] 100mg Take 1 Un job[facility] 100 mg 8-01 capsule by ity of capsule 00:00: mouth in [place] [address] the Medical morning Branch and 1 capsule in the evening. Take with meals. Miscellaneo 2023-0 Yes [id number] Use as [facility] [place] 03-13 directed ity o f Supply Kit 00:00: [place] 00 [facility] tiZANidine 2023-0 Yes [id number] Take 1 U nivers 4 mg tablet 8-01 tablet ity of 00:00: morning [place] 00 and Medical afternoon, Branch 2 tablets at bedtime gabapentin 2023-0 Yes [id number] 800mg Take 1 [facility] 800 mg 8-01 tablet by ity of tablet 00:00: mouth at [place] [address] bedtime. Medical Branch gabapentin 2023-0 Yes [id number] 600mg Take 1 [facility] 600 mg 8-01 tablet by ity of tablet 00:00: mouth in [place] 00 the Medical morning Branch and 1 tablet in the evening. celecoxib 2023-0 Yes [id number] 100mg Take 1 Un joby 100 mg 8-01 capsule by ity of capsule 00:00: mouth in [place] [address] the Medical morning Branch and 1 capsule in the evening. Take with meals. Miscellaneo 2023-0 Yes [id number] Use as [facility] [place] 03-13 directed ity o f Supply Kit 00:00: [place] 00 [facility] Branch tiZANidine 2023-0 Yes [id number] Take 1 U nivers 4 mg tablet 8-01 tablet ity of 00:00: morning [place] [address] and Medical afternoon, Branch 2 tablets at bedtime gabapentin 2023-0 Yes [id number] 800mg Take 1 [facility] 800 mg 8-01 tablet by ity of tablet 00:00: mouth at [place] [address] bedtime. Medical Branch gabapentin 2023-0 Yes [id number] 600mg Take 1 [facility] 600 mg 8-01 tablet by ity of tablet 00:00: mouth in [place] [address] the Medical morning Branch and 1 tablet in the evening. celecoxib 2023-0 Yes [id number] 100mg Take 1 [facility] job[facility] 100 mg 8-01 capsule by ity of capsule 00:00: mouth in [place] [address] the Medical morning Branch and 1 capsule in the evening. Take with meals. Miscellaneo 2023-0 Yes [id number] Use as [facility] [place] 03-13 directed ity o f Supply Kit 00:00: [place] 00 [facility] Branch tiZANidine 2023-0 Yes [id number] Take 1 U nivers 4 mg tablet 8-01 tablet ity of 00:00: morning [place] [address] and Medical afternoon, Branch 2 tablets at bedtime gabapentin 2023-0 Yes [id number] 800mg Take 1 [facility] 800 mg 8-01 tablet by ity of tablet 00:00: mouth at [place] [address] bedtime. Medical Branch gabapentin 2023-0 Yes [id number] 600mg Take 1 [facility] 600 mg 8-01 tablet by ity of tablet 00:00: mouth in [place] the Medical morning Branch and 1 tablet in the evening. celecoxib 2023-0 Yes [id number] 100mg Take 1 [facility] job[facility] 100 mg 8-01 capsule by ity of capsule 00:00: mouth in [place] 00 the Medical morning Branch and 1 capsule in the evening. Take with meals. Miscellaneo 2023-0 Yes [id number] Use as [facility] [place] 03-13 directed ity o f Supply Kit 00:00: [place] 00 [facility] Branch tiZANidine 2023-0 Yes [id number] Take 1 [facility] nivers 4 mg tablet 8-01 tablet ity of 00:00: morning [place] 00 and Medical afternoon, Branch 2 tablets at bedtime gabapentin 2023-0 Yes [id number] 800mg Take 1 [facility] 800 mg 8-01 tablet by ity of tablet 00:00: mouth at [place] [address] bedtime. Medical Branch gabapentin 2023-0 Yes [id number] 600mg Take 1 [facility] 600 mg 8-01 tablet by ity of tablet 00:00: mouth in [place] [address] the Medical morning Branch and 1 tablet in the evening. celecoxib 2023-0 Yes [id number] 100mg Take 1 [facility] job[facility] 100 mg 8-01 capsule by ity of capsule 00:00: mouth in [place] [address] the Medical morning Branch and 1 capsule in the evening. Take with meals. Miscellaneo 2023-0 Yes [id number] Use as [facility] [place] 03-13 directed ity o f Supply Kit 00:00: [place] 00 [facility] Branch tiZANidine 2023-0 Yes [id number] Take 1 [facility] nivers 4 mg tablet 8-01 tablet ity of 00:00: morning [place] [address] and Medical afternoon, Branch 2 tablets at bedtime gabapentin 2023-0 Yes [id number] 800mg Take 1 [facility] 800 mg 8-01 tablet by ity of tablet 00:00: mouth at [place] [address] bedtime. Medical Branch gabapentin 2023-0 Yes [id number] 600mg Take 1 [facility] 600 mg 8-01 tablet by ity of tablet 00:00: mouth in [place] [address] the Medical morning Branch and 1 tablet in the evening. celecoxib 2023-0 Yes [id number] 100mg Take 1 Un job[facility] 100 mg 8-01 capsule by ity of capsule 00:00: mouth in [place] [address] the Medical morning Branch and 1 capsule in the evening. Take with meals. Miscellaneo 2023-0 Yes [id number] Use as [facility] [place] 03-13 directed ity o f Supply Kit 00:00: [place] 00 [facility] Branch tiZANidine 2023-0 Yes [id number] Take 1 U nivers 4 mg tablet 8-01 tablet ity of 00:00: morning [place] 00 and Medical afternoon, Branch 2 tablets at bedtime gabapentin 2023-0 Yes [id number] 800mg Take 1 [facility] 800 mg 8-01 tablet by ity of tablet 00:00: mouth at [place] [address] bedtime. Medical Branch gabapentin 2023-0 Yes [id number] 600mg Take 1 [facility] 600 mg 8-01 tablet by ity of tablet 00:00: mouth in [place] 00 the Medical morning Branch and 1 tablet in the evening. celecoxib 2023-0 Yes [id number] 100mg Take 1 Un job[facility] 100 mg 8-01 capsule by ity of capsule 00:00: mouth in [place] 00 the Medical morning Branch and 1 capsule in the evening. Take with meals. Miscellaneo 2023-0 Yes [id number] Use as [facility] [place] 03-13 directed ity o f Supply Kit 00:00: [place] 00 [facility] Branch tiZANidine 2023-0 Yes [id number] Take 1 [facility] nivers 4 mg tablet 8-01 tablet ity of 00:00: morning [place] 00 and Medical afternoon, Branch 2 tablets at bedtime gabapentin 2023-0 Yes [id number] 800mg Take 1 [facility] 800 mg 8-01 tablet by ity of tablet 00:00: mouth at [place] [address] bedtime. Medical Branch gabapentin 2023-0 Yes [id number] 600mg Take 1 [facility] 600 mg 8-01 tablet by ity of tablet 00:00: mouth in [place] 00 the Medical morning Branch and 1 tablet in the evening. celecoxib 2023-0 Yes [id number] 100mg Take 1 Un job[facility] 100 mg 8-01 capsule by ity of capsule 00:00: mouth in [place] [address] the Medical morning Branch and 1 capsule in the evening. Take with meals. Miscellaneo 2023-0 Yes [id number] Use as [facility] [place] 03-13 directed ity o f Supply Kit 00:00: [place] 00 [facility] Branch tiZANidine 2023-0 Yes [id number] Take 1 U nivers 4 mg tablet 8-01 tablet ity of 00:00: morning [place] 00 and Medical afternoon, Branch 2 tablets at bedtime gabapentin 2023-0 Yes [id number] 800mg Take 1 [facility] 800 mg 8-01 tablet by ity of tablet 00:00: mouth at [place] [address] bedtime. Medical Branch gabapentin 2023-0 Yes [id number] 600mg Take 1 [facility] 600 mg 8-01 tablet by ity of tablet 00:00: mouth in [place] 00 the Medical morning Branch and 1 tablet in the evening. celecoxib 2023-0 Yes [id number] 100mg Take 1 Un job[facility] 100 mg 8-01 capsule by ity of capsule 00:00: mouth in [place] 00 the Medical morning Branch and 1 capsule in the evening. Take with meals. Miscellaneo 2023-0 Yes [id number] Use as [facility] [place] 03-13 directed ity o f Supply Kit 00:00: [place] 00 [facility] Branch tiZANidine 2023-0 Yes [id number] Take 1 U nivers 4 mg tablet 8-01 tablet ity of 00:00: morning [place] 00 and Medical afternoon, Branch 2 tablets at bedtime gabapentin 2023-0 Yes [id number] 800mg Take 1 [facility] 800 mg 8-01 tablet by ity of tablet 00:00: mouth at [place] [address] bedtime. Medical Branch gabapentin 2023-0 Yes [id number] 600mg Take 1 [facility] 600 mg 8-01 tablet by ity of tablet 00:00: mouth in [place] 00 the Medical morning Branch and 1 tablet in the evening. celecoxib 2023-0 Yes [id number] 100mg Take 1 Un job[facility] 100 mg 8-01 capsule by ity of capsule 00:00: mouth in [place] 00 the Medical morning Branch and 1 capsule in the evening. Take with meals. Miscellaneo 2023-0 Yes [id number] Use as [facility] [place] 03-13 directed ity o f Supply Kit 00:00: [place] 00 [facility] Branch tiZANidine 2023-0 Yes [id number] Take 1 U nivers 4 mg tablet 8-01 tablet ity of 00:00: morning [place] [address] and Medical afternoon, Branch 2 tablets at bedtime gabapentin 2023-0 Yes [id number] 800mg Take 1 [facility] 800 mg 8-01 tablet by ity of tablet 00:00: mouth at [place] [address] bedtime. Medical Branch gabapentin 2023-0 Yes [id number] 600mg Take 1 [facility] 600 mg 8-01 tablet by ity of tablet 00:00: mouth in [place] the Medical morning Branch and 1 tablet in the evening. celecoxib 2023-0 Yes [id number] 100mg Take 1 Un job[facility] 100 mg 8-01 capsule by ity of capsule 00:00: mouth in [place] the Medical morning Branch and 1 capsule in the evening. Take with meals. Miscellaneo 2023-0 Yes [id number] Use as [facility] [place] 03-13 directed ity o f Supply Kit 00:00: [place] [facility] tiZANidine 2023-0 Yes [id number] Take 1 U nivers 4 mg tablet 8-01 tablet ity of 00:00: morning [place] 00 and Medical afternoon, Branch 2 tablets at bedtime gabapentin 2023-0 Yes [id number] 800mg Take 1 [facility] 800 mg 8-01 tablet by ity of tablet 00:00: mouth at [place] [address] bedtime. Medical Branch gabapentin 2023-0 Yes [id number] 600mg Take 1 [facility] 600 mg 8-01 tablet by ity of tablet 00:00: mouth in [place] the Medical morning Branch and 1 tablet in the evening. celecoxib 2023-0 Yes [id number] 100mg Take 1 Un job[facility] 100 mg 8-01 capsule by ity of capsule 00:00: mouth in [place] [address] the Medical morning Branch and 1 capsule in the evening. Take with meals. Miscellaneo 2023-0 Yes [id number] Use as [facility] [place] 03-13 directed ity o f Supply Kit 00:00: [place] [facility] tiZANidine 2023-0 Yes [id number] Take 1 U nivers 4 mg tablet 8-01 tablet ity of 00:00: morning [place] [address] and Medical afternoon, Branch 2 tablets at bedtime gabapentin 2023-0 Yes [id number] 800mg Take 1 [facility] 800 mg 8-01 tablet by ity of tablet 00:00: mouth at [place] [address] bedtime. Medical Branch gabapentin 2023-0 Yes [id number] 600mg Take 1 [facility] 600 mg 8-01 tablet by ity of tablet 00:00: mouth in [place] [address] the Medical morning Branch and 1 tablet in the evening. celecoxib 2023-0 Yes [id number] 100mg Take 1 Un job[facility] 100 mg 8-01 capsule by ity of capsule 00:00: mouth in [place] [address] the Medical morning Branch and 1 capsule in the evening. Take with meals. Miscellaneo 2023-0 Yes [id number] Use as [facility] [place] 03-13 directed ity o f Supply Kit 00:00: [place] 00 Medical Branch tiZANidine 2023-0 Yes [id number] Take 1 U nivers 4 mg tablet 8-01 tablet ity of 00:00: morning [place] 00 and Medical afternoon, Branch 2 tablets at bedtime gabapentin 2023-0 Yes [id number] 800mg Take 1 [facility] 800 mg 8-01 tablet by ity of tablet 00:00: mouth at [place] [address] bedtime. Medical Branch gabapentin 2023-0 Yes [id number] 600mg Take 1 [facility] 600 mg 8-01 tablet by ity of tablet 00:00: mouth in [place] 00 the Medical morning Branch and 1 tablet in the evening. celecoxib 2023-0 Yes [id number] 100mg Take 1 Un job[facility] 100 mg 8-01 capsule by ity of capsule 00:00: mouth in [place] 00 the Medical morning Branch and 1 capsule in the evening. Take with meals. Miscellaneo 3-0 Yes [id number] Use as [facility] [place] 03-13 directed ity o f Supply Kit 00:00: [place] 00 Medical Branch tiZANidine 2023-0 Yes [id number] Take 1 U nivers 4 mg tablet 8-01 tablet ity of 00:00: morning [place] 00 and Medical afternoon, Branch 2 tablets at bedtime gabapentin 2023-0 Yes [id number] 800mg Take 1 [facility] 800 mg 8-01 tablet by ity of tablet 00:00: mouth at [place] [address] bedtime. Medical Branch gabapentin 2023-0 Yes [id number] 600mg Take 1 [facility] 600 mg 8-01 tablet by ity of tablet 00:00: mouth in [place] 00 the Medical morning Branch and 1 tablet in the evening. celecoxib 2023-0 Yes [id number] 100mg Take 1 Un job[facility] 100 mg 8-01 capsule by ity of capsule 00:00: mouth in [place] [address] the Medical morning Branch and 1 capsule in the evening. Take with meals. Miscellaneo 2023-0 Yes [id number] Use as [facility] [place] 03-13 directed ity o f Supply Kit 00:00: [place] 00 [facility] Branch tiZANidine 2023-0 Yes [id number] Take 1 U nivers 4 mg tablet 8-01 tablet ity of 00:00: morning [place] 00 and Medical afternoon, Branch 2 tablets at bedtime gabapentin 2023-0 Yes [id number] 800mg Take 1 [facility] 800 mg 8-01 tablet by ity of tablet 00:00: mouth at [place] [address] bedtime. Medical Branch gabapentin 2023-0 Yes [id number] 600mg Take 1 [facility] 600 mg 8-01 tablet by ity of tablet 00:00: mouth in [place] 00 the Medical morning Branch and 1 tablet in the evening. celecoxib 2023-0 Yes [id number] 100mg Take 1 Un joby 100 mg 8-01 capsule by ity of capsule 00:00: mouth in [place] 00 the Medical morning Branch and 1 capsule in the evening. Take with meals. Miscellaneo 2023-0 Yes [id number] Use as [facility] [place] 03-13 directed ity o f Supply Kit 00:00: [place] 00 Medical Branch tiZANidine 2023-0 Yes [id number] Take 1 U nivers 4 mg tablet 8-01 tablet ity of 00:00: morning [place] [address] and Medical afternoon, Branch 2 tablets at bedtime gabapentin 2023-0 Yes [id number] 800mg Take 1 [facility] 800 mg 8-01 tablet by ity of tablet 00:00: mouth at [place] [address] bedtime. Medical Branch gabapentin 2023-0 Yes [id number] 600mg Take 1 [facility] 600 mg 8-01 tablet by ity of tablet 00:00: mouth in [place] the Medical morning Branch and 1 tablet in the evening. celecoxib 2023-0 Yes [id number] 100mg Take 1 Un job[facility] 100 mg 8-01 capsule by ity of capsule 00:00: mouth in [place] [address] the Medical morning Branch and 1 capsule in the evening. Take with meals. Miscellaneo 2023-0 Yes [id number] Use as [facility] [place] 03-13 directed ity o f Supply Kit 00:00: [place] 00 Medical Branch tiZANidine 2023-0 Yes [id number] Take 1 U nivers 4 mg tablet 8-01 tablet ity of 00:00: morning [place] [address] and Medical afternoon, Branch 2 tablets at bedtime gabapentin 2023-0 Yes [id number] 800mg Take 1 [facility] 800 mg 8-01 tablet by ity of tablet 00:00: mouth at [place] [address] bedtime. Medical Branch gabapentin 2023-0 Yes [id number] 600mg Take 1 [facility] 600 mg 8-01 tablet by ity of tablet 00:00: mouth in [place] 00 the Medical morning Branch and 1 tablet in the evening. celecoxib 2023-0 Yes [id number] 100mg Take 1 Un joby 100 mg 8-01 capsule by ity of capsule 00:00: mouth in [place] 00 the Medical morning Branch and 1 capsule in the evening. Take with meals. Miscellaneo 2023-0 Yes [id number] Use as [facility] [place] 03-13 directed ity o f Supply Kit 00:00: [place] 00 Medical Branch tiZANidine 2023-0 Yes [id number] Take 1 U nivers 4 mg tablet 8-01 tablet ity of 00:00: morning [place] 00 and Medical afternoon, Branch 2 tablets at bedtime gabapentin 2023-0 Yes [id number] 800mg Take 1 [facility] 800 mg 8-01 tablet by ity of tablet 00:00: mouth at [place] [address] bedtime. Medical Branch gabapentin 2023-0 Yes [id number] 600mg Take 1 [facility] 600 mg 8-01 tablet by ity of tablet 00:00: mouth in [place] the Medical morning Branch and 1 tablet in the evening. celecoxib 2023-0 Yes [id number] 100mg Take 1 Un job[facility] 100 mg 8-01 capsule by ity of capsule 00:00: mouth in [place] [address] the Medical morning Branch and 1 capsule in the evening. Take with meals. Miscellaneo 2023-0 Yes [id number] Use as [facility] [place] 03-13 directed ity o f Supply Kit 00:00: [place] 00 Medical Branch tiZANidine 2023-0 Yes [id number] Take 1 U nivers 4 mg tablet 8-01 tablet ity of 00:00: morning [place] [address] and Medical afternoon, Branch 2 tablets at bedtime gabapentin 2023-0 Yes [id number] 800mg Take 1 [facility] 800 mg 8-01 tablet by ity of tablet 00:00: mouth at [place] [address] bedtime. Medical Branch gabapentin 2023-0 Yes [id number] 600mg Take 1 [facility] 600 mg 8-01 tablet by ity of tablet 00:00: mouth in [place] [address] the Medical morning Branch and 1 tablet in the evening. celecoxib 2023-0 Yes [id number] 100mg Take 1 Un job[facility] 100 mg 8-01 capsule by ity of capsule 00:00: mouth in [place] [address] the Medical morning Branch and 1 capsule in the evening. Take with meals. Miscellaneo 2023-0 Yes [id number] Use as [facility] [place] 03-13 directed ity o f Supply Kit 00:00: [place] 00 Medical Branch tiZANidine 2023-0 Yes [id number] Take 1 U nivers 4 mg tablet 8-01 tablet ity of 00:00: morning [place] 00 and Medical afternoon, Branch 2 tablets at bedtime gabapentin 2023-0 Yes [id number] 800mg Take 1 [facility] 800 mg 8-01 tablet by ity of tablet 00:00: mouth at [place] [address] bedtime. Medical Branch gabapentin 2023-0 Yes [id number] 600mg Take 1 [facility] 600 mg 8-01 tablet by ity of tablet 00:00: mouth in [place] 00 the Medical morning Branch and 1 tablet in the evening. celecoxib 2023-0 Yes [id number] 100mg Take 1 Un job[facility] 100 mg 8-01 capsule by ity of capsule 00:00: mouth in [place] 00 the Medical morning Branch and 1 capsule in the evening. Take with meals. Miscellaneo 2023-0 Yes [id number] Use as [facility] [place] 03-13 directed ity o f Supply Kit 00:00: [place] 00 Medical Branch tiZANidine 2023-0 Yes [id number] Take 1 U nivers 4 mg tablet 8-01 tablet ity of 00:00: morning [place] 00 and Medical afternoon, Branch 2 tablets at bedtime gabapentin 2023-0 Yes [id number] 800mg Take 1 [facility] 800 mg 8-01 tablet by ity of tablet 00:00: mouth at [place] [address] bedtime. Medical Branch gabapentin 2023-0 Yes [id number] 600mg Take 1 [facility] 600 mg 8-01 tablet by ity of tablet 00:00: mouth in [place] 00 the Medical morning Branch and 1 tablet in the evening. celecoxib 2023-0 Yes [id number] 100mg Take 1 Un [facility] 100 mg 8-01 capsule by ity of capsule 00:00: mouth in [place] [address] the Medical morning Branch and 1 capsule in the evening. Take with meals. Miscellaneo 2023-0 Yes [id number] Use as [facility] [place] 03-13 directed ity o f Supply Kit 00:00: [place] 00 Medical Branch tiZANidine 2023-0 Yes [id number] Take 1 U nivers 4 mg tablet 8-01 tablet ity of 00:00: morning [place] 00 and Medical afternoon, Branch 2 tablets at bedtime gabapentin 2023-0 Yes [id number] 800mg Take 1 [facility] 800 mg 8-01 tablet by ity of tablet 00:00: mouth at [place] [address] bedtime. Medical Branch gabapentin 2023-0 Yes [id number] 600mg Take 1 [facility] 600 mg 8-01 tablet by ity of tablet 00:00: mouth in [place] 00 the Medical morning Branch and 1 tablet in the evening. celecoxib 2023-0 Yes [id number] 100mg Take 1 Un job[facility] 100 mg 8-01 capsule by ity of capsule 00:00: mouth in [place] 00 the Medical morning Branch and 1 capsule in the evening. Take with meals. Miscellaneo 2023-0 Yes [id number] Use as [facility] [place] 03-13 directed ity o f Supply Kit 00:00: [place] 00 Medical Branch tiZANidine 2023-0 Yes [id number] Take 1 U nivers 4 mg tablet 8-01 tablet ity of 00:00: morning [place] 00 and Medical afternoon, Branch 2 tablets at bedtime gabapentin 2023-0 Yes [id number] 800mg Take 1 [facility] 800 mg 8-01 tablet by ity of tablet 00:00: mouth at [place] [address] bedtime. Medical Branch gabapentin 2023-0 Yes [id number] 600mg Take 1 [facility] 600 mg 8-01 tablet by ity of tablet 00:00: mouth in [place] 00 the Medical morning Branch and 1 tablet in the evening. celecoxib 2023-0 Yes [id number] 100mg Take 1 Un job[facility] 100 mg 8-01 capsule by ity of capsule 00:00: mouth in [place] 00 the Medical morning Branch and 1 capsule in the evening. Take with meals. Miscellaneo 2023-0 Yes [id number] Use as [facility] [place] 03-13 directed ity o f Supply Kit 00:00: [place] 00 Medical Branch tiZANidine 2023-0 Yes [id number] Take 1 U nivers 4 mg tablet 8-01 tablet ity of 00:00: morning [place] 00 and Medical afternoon, Branch 2 tablets at bedtime gabapentin 2023-0 Yes [id number] 800mg Take 1 [facility] 800 mg 8-01 tablet by ity of tablet 00:00: mouth at [place] [address] bedtime. Medical Branch gabapentin 2023-0 Yes [id number] 600mg Take 1 [facility] 600 mg 8-01 tablet by ity of tablet 00:00: mouth in [place] 00 the Medical morning Branch and 1 tablet in the evening. celecoxib 2023-0 Yes [id number] 100mg Take 1 Un job[facility] 100 mg 8-01 capsule by ity of capsule 00:00: mouth in [place] 00 the Medical morning Branch and 1 capsule in the evening. Take with meals. Miscellaneo 2023-0 Yes [id number] Use as [facility] [place] 03-13 directed ity o f Supply Kit 00:00: [place] 00 Medical Branch tiZANidine 2023-0 Yes [id number] Take 1 U nivers 4 mg tablet 8-01 tablet ity of 00:00: morning [place] 00 and Medical afternoon, Branch 2 tablets at bedtime gabapentin 2023-0 Yes [id number] 800mg Take 1 [facility] 800 mg 8-01 tablet by ity of tablet 00:00: mouth at [place] [address] bedtime. Medical Branch gabapentin 2023-0 Yes [id number] 600mg Take 1 [facility] 600 mg 8-01 tablet by ity of tablet 00:00: mouth in [place] [address] the Medical morning Branch and 1 tablet in the evening. celecoxib 2023-0 Yes [id number] 100mg Take 1 Un job[facility] 100 mg 8-01 capsule by ity of capsule 00:00: mouth in [place] [address] the Medical morning Branch and 1 capsule in the evening. Take with meals. Miscellaneo 2023-0 Yes [id number] Use as [facility] [place] 03-13 directed ity o f Supply Kit 00:00: [place] 00 Medical Branch tiZANidine 2023-0 Yes [id number] Take 1 U nivers 4 mg tablet 8-01 tablet ity of 00:00: morning [place] [address] and Medical afternoon, Branch 2 tablets at bedtime gabapentin 2023-0 Yes [id number] 800mg Take 1 [facility] 800 mg 8-01 tablet by ity of tablet 00:00: mouth at [place] [address] bedtime. Medical Branch gabapentin 2023-0 Yes [id number] 600mg Take 1 [facility] 600 mg 8-01 tablet by ity of tablet 00:00: mouth in [place] [address] the [facility] morning Branch and 1 tablet in the evening. celecoxib 2023-0 Yes [id number] 100mg Take 1 Un job[facility] 100 mg 8-01 capsule by ity of capsule 00:00: mouth in [place] [address] the [facility] morning Branch and 1 capsule in the evening. Take with meals. Miscellaneo 2023-0 Yes [id number] Use as [facility] [place] 03-13 directed ity o f Supply Kit 00:00: [place] 00 Medical Branch tiZANidine 2023-0 Yes [id number] Take 1 U nivers 4 mg tablet 8-01 tablet ity of 00:00: morning [place] 00 and Medical afternoon, Branch 2 tablets at bedtime gabapentin 2023-0 Yes [id number] 800mg Take 1 [facility] 800 mg 8-01 tablet by ity of tablet 00:00: mouth at [place] [address] bedtime. Medical Branch gabapentin 2023-0 Yes [id number] 600mg Take 1 [facility] 600 mg 8-01 tablet by ity of tablet 00:00: mouth in [place] 00 the Medical morning Branch and 1 tablet in the evening. celecoxib 2023-0 Yes [id number] 100mg Take 1 Un job[facility] 100 mg 8-01 capsule by ity of capsule 00:00: mouth in [place] [address] the Medical morning Branch and 1 capsule in the evening. Take with meals. Miscellaneo 2023-0 Yes [id number] Use as [facility] [place] 03-13 directed ity o f Supply Kit 00:00: [place] [facility] Branch tiZANidine 2023-0 Yes [id number] Take 1 U nivers 4 mg tablet 8-01 tablet ity of 00:00: morning [place] 00 and Medical afternoon, Branch 2 tablets at bedtime gabapentin 2023-0 Yes [id number] 800mg Take 1 [facility] 800 mg 8-01 tablet by ity of tablet 00:00: mouth at [place] [address] bedtime. Medical Branch gabapentin 2023-0 Yes [id number] 600mg Take 1 [facility] 600 mg 8-01 tablet by ity of tablet 00:00: mouth in [place] the Medical morning Branch and 1 tablet in the evening. celecoxib 2023-0 Yes [id number] 100mg Take 1 Un job[facility] 100 mg 8-01 capsule by ity of capsule 00:00: mouth in [place] [address] the Medical morning Branch and 1 capsule in the evening. Take with meals. Miscellaneo 2023-0 Yes [id number] Use as [facility] [place] 03-13 directed ity o f Supply Kit 00:00: [place] [facility] Branch tiZANidine 2023-0 Yes [id number] Take 1 U nivers 4 mg tablet 8-01 tablet ity of 00:00: morning [place] 00 and Medical afternoon, Branch 2 tablets at bedtime gabapentin 2023-0 Yes [id number] 800mg Take 1 [facility] 800 mg 8-01 tablet by ity of tablet 00:00: mouth at [place] [address] bedtime. Medical Branch gabapentin 2023-0 Yes [id number] 600mg Take 1 [facility] 600 mg 8-01 tablet by ity of tablet 00:00: mouth in [place] 00 the Medical morning Branch and 1 tablet in the evening. celecoxib 2023-0 Yes [id number] 100mg Take 1 Un joby 100 mg 8-01 capsule by ity of capsule 00:00: mouth in [place] 00 the Medical morning Branch and 1 capsule in the evening. Take with meals. Miscellaneo 2023-0 Yes [id number] Use as [facility] [place] 03-13 directed ity o f Supply Kit 00:00: [place] 00 Medical Branch tiZANidine 2023-0 Yes [id number] Take 1 U nivers 4 mg tablet 8-01 tablet ity of 00:00: morning [place] 00 and Medical afternoon, Branch 2 tablets at bedtime gabapentin 2023-0 Yes [id number] 800mg Take 1 [facility] 800 mg 8-01 tablet by ity of tablet 00:00: mouth at [place] [address] bedtime. Medical Branch gabapentin 2023-0 Yes [id number] 600mg Take 1 [facility] 600 mg 8-01 tablet by ity of tablet 00:00: mouth in [place] [address] the Medical morning Branch and 1 tablet in the evening. celecoxib 2023-0 Yes [id number] 100mg Take 1 Un joby 100 mg 8-01 capsule by ity of capsule 00:00: mouth in [place] [address] the Medical morning Branch and 1 capsule in the evening. Take with meals. Miscellaneo 2023-0 Yes [id number] Use as [facility] [place] 03-13 directed ity o f Supply Kit 00:00: [place] 00 Medical Branch tiZANidine 2023-0 Yes [id number] Take 1 U nivers 4 mg tablet 8-01 tablet ity of 00:00: morning [place] [address] and Medical afternoon, Branch 2 tablets at bedtime gabapentin 2023-0 Yes [id number] 800mg Take 1 [facility] 800 mg 8-01 tablet by ity of tablet 00:00: mouth at [place] [address] bedtime. Medical Branch celecoxib 2023-0 Yes [id number] 100mg Take 1 Un [facility] 100 mg 8-01 capsule by ity of capsule 00:00: mouth in [place] [address] the Medical morning Branch and 1 capsule in the evening. Take with meals. Miscellaneo 2023-0 Yes [id number] Use as [facility] [place] 03-13 directed ity o f Supply Kit 00:00: [place] 00 Medical Branch tiZANidine 2023-0 Yes [id number] Take 1 U nivers 4 mg tablet 8-01 tablet ity of 00:00: morning [place] 00 and Medical afternoon, Branch 2 tablets at bedtime gabapentin 2023-0 Yes [id number] 800mg Take 1 [facility] 800 mg 8-01 tablet by ity of tablet 00:00: mouth at [place] [address] bedtime. Medical Branch celecoxib 2023-0 Yes [id number] 100mg Take 1 Un [facility] 100 mg 8-01 capsule by ity of capsule 00:00: mouth in [place] 00 the Medical morning Branch and 1 capsule in the evening. Take with meals. Miscellaneo 3-0 Yes [id number] Use as [facility] [place] 03-13 directed ity o f Supply Kit 00:00: [place] 00 Medical Branch tiZANidine 2023-0 Yes [id number] Take 1 U nivers 4 mg tablet 8-01 tablet ity of 00:00: morning [place] 00 and Medical afternoon, Branch 2 tablets at bedtime gabapentin 2023-0 Yes [id number] 800mg Take 1 [facility] 800 mg 8-01 tablet by ity of tablet 00:00: mouth at [place] [address] bedtime. Medical Branch celecoxib 2023-0 Yes [id number] 100mg Take 1 Un [facility] 100 mg 8-01 capsule by ity of capsule 00:00: mouth in [place] the Medical morning Branch and 1 capsule in the evening. Take with meals. Miscellaneo 3-0 Yes [id number] Use as [facility] [place] 03-13 directed ity o f Supply Kit 00:00: [place] 00 Medical Branch tiZANidine 2023-0 Yes [id number] Take 1 U nivers 4 mg tablet 8-01 tablet ity of 00:00: morning [place] 00 and Medical afternoon, Branch 2 tablets at bedtime gabapentin 2023-0 Yes [id number] 800mg Take 1 [facility] 800 mg 8-01 tablet by ity of tablet 00:00: mouth at [place] [address] bedtime. Medical Branch celecoxib 2023-0 Yes [id number] 100mg Take 1 Un [facility] 100 mg 8-01 capsule by ity of capsule 00:00: mouth in [place] 00 the Medical morning Branch and 1 capsule in the evening. Take with meals. Miscellaneo 2023-0 Yes [id number] Use as [facility] [place] 03-13 directed ity o f Supply Kit 00:00: [place] 00 Medical Branch tiZANidine 2023-0 Yes [id number] Take 1 U nivers 4 mg tablet 8-01 tablet ity of 00:00: morning [place] 00 and Medical afternoon, Branch 2 tablets at bedtime gabapentin 2023-0 Yes [id number] 800mg Take 1 [facility] 800 mg 8-01 tablet by ity of tablet 00:00: mouth at [place] [address] bedtime. Medical Branch celecoxib 2023-0 Yes [id number] 100mg Take 1 [facility] 100 mg 8-01 capsule by ity of capsule 00:00: mouth in [place] 00 the Medical morning Branch and 1 capsule in the evening. Take with meals. Miscellaneo 3-0 Yes [id number] Use as [facility] [place] 03-13 directed ity o f Supply Kit 00:00: [place] 00 Medical Branch tiZANidine 2023-0 Yes [id number] Take 1 U nivers 4 mg tablet 8-01 tablet ity of 00:00: morning [place] 00 and Medical afternoon, Branch 2 tablets at bedtime gabapentin 2023-0 Yes [id number] 800mg Take 1 [facility] 800 mg 8-01 tablet by ity of tablet 00:00: mouth at [place] [address] bedtime. Medical Branch celecoxib 2023-0 Yes [id number] 100mg Take 1 Un [facility] 100 mg 8-01 capsule by ity of capsule 00:00: mouth in [place] 00 the Medical morning Branch and 1 capsule in the evening. Take with meals. Miscellaneo 3-0 Yes [id number] Use as [facility] [place] 03-13 directed ity o f Supply Kit 00:00: [place] 00 Medical Branch tiZANidine 2023-0 Yes [id number] Take 1 U nivers 4 mg tablet 8-01 tablet ity of 00:00: morning [place] 00 and Medical afternoon, Branch 2 tablets at bedtime gabapentin 2023-0 Yes [id number] 800mg Take 1 [facility] 800 mg 8-01 tablet by ity of tablet 00:00: mouth at [place] [address] bedtime. Medical Branch celecoxib 2023-0 Yes [id number] 100mg Take 1 Un [facility] 100 mg 8-01 capsule by ity of capsule 00:00: mouth in [place] 00 the Medical morning Branch and 1 capsule in the evening. Take with meals. Miscellaneo 2023-0 Yes [id number] Use as [facility] [place] 03-13 directed ity o f Supply Kit 00:00: [place] 00 Medical Branch tiZANidine 2023-0 Yes [id number] Take 1 U nivers 4 mg tablet 8-01 tablet ity of 00:00: morning [place] 00 and Medical afternoon, Branch 2 tablets at bedtime gabapentin 2023-0 Yes [id number] 800mg Take 1 [facility] 800 mg 8-01 tablet by ity of tablet 00:00: mouth at [place] [address] bedtime. Medical Branch celecoxib 2023-0 Yes [id number] 100mg Take 1 Un job[facility] 100 mg 8-01 capsule by ity of capsule 00:00: mouth in [place] 00 the Medical morning Branch and 1 capsule in the evening. Take with meals. Miscellaneo 2022-0 Yes [id number] Use as [facility] [place] 03-13 directed ity o f Supply Kit 00:00: [place] 00 Medical Branch tiZANidine 2023-0 Yes [id number] Take 1 U nivers 4 mg tablet 8-01 tablet ity of 00:00: morning [place] 00 and Medical afternoon, Branch 2 tablets at bedtime gabapentin 3-0 Yes [id number] 800mg Take 1 [facility] 800 mg 8-01 tablet by ity of tablet 00:00: mouth at [place] [address] bedtime. Medical Branch gabapentin 2022-0 2023- No [id number] 600mg Take 1 [facility] 600 mg 8-06-15 tablet by ity of tablet 00:00: 00:00 mouth in [place] 00 :00 the Medical morning Branch and 1 tablet in the evening. gabapentin 2023-0 2023- No [id number] 600mg Take 1 [facility] 600 mg 8-06-15 tablet by ity of tablet 00:00: 00:00 mouth in [place] 00 :00 the Medical morning Branch and 1 tablet in the evening. gabapentin 202-0 2023- No [id number] 600mg Take 1 [facility] 600 mg 8-06-15 tablet by ity of tablet 00:00: 00:00 mouth in [place] 00 :00 the Medical morning Branch and 1 tablet in the evening. NuvaRing 2022-0 Yes [id number] 1{each} Insert 1 [facility] 0.12-0.015 7-27 Each into ity of mg/24 hr 00:00: vagina [place] vaginal 00 once every Medica l insert month. Branch Insert vaginally and leave in place for 3 consecutiv e weeks, then remove for 1 week. NuvaRing Yes [id number] 1{each} Insert 1 [facility] 0.12-0.015 7-27 Each into ity of mg/24 hr 00:00: vagina [place] vaginal 00 once every Medica l insert month. Branch Insert vaginally and leave in place for 3 consecutiv e weeks, then remove for 1 week. NuvaRing Yes [id number] 1{each} Insert 1 [facility] 0.12-0.015 7-27 Each into ity of mg/24 hr 00:00: vagina [place] vaginal 00 once every Medica l insert month. Branch Insert vaginally and leave in place for 3 consecutiv e weeks, then remove for 1 week. NuvaRing Yes [id number] 1{each} Insert 1 [facility] 0.12-0.015 7-27 Each into ity of mg/24 hr 00:00: vagina [place] vaginal 00 once every Medica l insert month. Branch Insert vaginally and leave in place for 3 consecutiv e weeks, then remove for 1 week. NuvaRing Yes [id number] 1{each} Insert 1 [facility] 0.12-0.015 7-27 Each into ity of mg/24 hr 00:00: vagina [place] vaginal 00 once every Medica l insert month. Branch Insert vaginally and leave in place for 3 consecutiv e weeks, then remove for 1 week. NuvaRing Yes [id number] 1{each} Insert 1 [facility] 0.12-0.015 7-27 Each into ity of mg/24 hr 00:00: vagina [place] vaginal 00 once every Medica l insert month. Branch Insert vaginally and leave in place for 3 consecutiv e weeks, then remove for 1 week. NuvaRing Yes [id number] 1{each} Insert 1 [facility] 0.12-0.015 7-27 Each into ity of mg/24 hr 00:00: vagina [place] vaginal 00 once every Medica l insert month. Branch Insert vaginally and leave in place for 3 consecutiv e weeks, then remove for 1 week. NuvaRing Yes [id number] 1{each} Insert 1 [facility] 0.12-0.015 7-27 Each into ity of mg/24 hr 00:00: vagina [place] vaginal 00 once every Medica l insert month. Branch Insert vaginally and leave in place for 3 consecutiv e weeks, then remove for 1 week. NuvaRing 0 Yes [id number] 1{each} Insert 1 [facility] 0.12-0.015 7-27 Each into ity of mg/24 hr 00:00: vagina [place] vaginal 00 once every Medica l insert month. Branch Insert vaginally and leave in place for 3 consecutiv e weeks, then remove for 1 week. NuvaRing 0 Yes [id number] 1{each} Insert 1 [facility] 0.12-0.015 7-27 Each into ity of mg/24 hr 00:00: vagina [place] vaginal 00 once every Medica l insert month. Branch Insert vaginally and leave in place for 3 consecutiv e weeks, then remove for 1 week. NuvaRing Yes [id number] 1{each} Insert 1 [facility] 0.12-0.015 7-27 Each into ity of mg/24 hr 00:00: vagina [place] vaginal 00 once every Medica l insert month. Branch Insert vaginally and leave in place for 3 consecutiv e weeks, then remove for 1 week. NuvaRing Yes [id number] 1{each} Insert 1 [facility] 0.12-0.015 7-27 Each into ity of mg/24 hr 00:00: vagina [place] vaginal 00 once every Medica l insert month. Branch Insert vaginally and leave in place for 3 consecutiv e weeks, then remove for 1 week. NuvaRing 0 Yes [id number] 1{each} Insert 1 [facility] 0.12-0.015 7-27 Each into ity of mg/24 hr 00:00: vagina [place] vaginal 00 once every Medica l insert month. Branch Insert vaginally and leave in place for 3 consecutiv e weeks, then remove for 1 week. NuvaRing 0 Yes [id number] 1{each} Insert 1 [facility] 0.12-0.015 7-27 Each into ity of mg/24 hr 00:00: vagina [place] vaginal 00 once every Medica l insert month. Branch Insert vaginally and leave in place for 3 consecutiv e weeks, then remove for 1 week. NuvaRing 2022-0 Yes [id number] 1{each} Insert 1 [facility] 0.12-0.015 7-27 Each into ity of mg/24 hr 00:00: vagina [place] vaginal 00 once every Medica l insert month. Branch Insert vaginally and leave in place for 3 consecutiv e weeks, then remove for 1 week. NuvaRing 2022-0 Yes [id number] 1{each} Insert 1 [facility] 0.12-0.015 7-27 Each into ity of mg/24 hr 00:00: vagina [place] vaginal 00 once every Medica l insert month. Branch Insert vaginally and leave in place for 3 consecutiv e weeks, then remove for 1 week. NuvaRing 2022-0 Yes [id number] 1{each} Insert 1 [facility] 0.12-0.015 7-27 Each into ity of mg/24 hr 00:00: vagina [place] vaginal 00 once every Medica l insert month. Branch Insert vaginally and leave in place for 3 consecutiv e weeks, then remove for 1 week. NuvaRing 2022-0 Yes [id number] 1{each} Insert 1 [facility] 0.12-0.015 7-27 Each into ity of mg/24 hr 00:00: vagina [place] vaginal 00 once every Medica l insert month. Branch Insert vaginally and leave in place for 3 consecutiv e weeks, then remove for 1 week. NuvaRing 2022-0 Yes [id number] 1{each} Insert 1 [facility] 0.12-0.015 7-27 Each into ity of mg/24 hr 00:00: vagina [place] vaginal 00 once every Medica l insert month. Branch Insert vaginally and leave in place for 3 consecutiv e weeks, then remove for 1 week. NuvaRing 2022-0 Yes [id number] 1{each} Insert 1 [facility] 0.12-0.015 7-27 Each into ity of mg/24 hr 00:00: vagina [place] vaginal 00 once every Medica l insert month. Branch Insert vaginally and leave in place for 3 consecutiv e weeks, then remove for 1 week. NuvaRing 2022-0 Yes [id number] 1{each} Insert 1 [facility] 0.12-0.015 7-27 Each into ity of mg/24 hr 00:00: vagina [place] vaginal 00 once every Medica l insert month. Branch Insert vaginally and leave in place for 3 consecutiv e weeks, then remove for 1 week. NuvaRing Yes [id number] 1{each} Insert 1 [facility] 0.12-0.015 7-27 Each into ity of mg/24 hr 00:00: vagina [place] vaginal 00 once every Medica l insert month. Branch Insert vaginally and leave in place for 3 consecutiv e weeks, then remove for 1 week. NuvaRing Yes [id number] 1{each} Insert 1 [facility] 0.12-0.015 7-27 Each into ity of mg/24 hr 00:00: vagina [place] vaginal 00 once every Medica l insert month. Branch Insert vaginally and leave in place for 3 consecutiv e weeks, then remove for 1 week. NuvaRing Yes [id number] 1{each} Insert 1 [facility] 0.12-0.015 7-27 Each into ity of mg/24 hr 00:00: vagina [place] vaginal 00 once every Medica l insert month. Branch Insert vaginally and leave in place for 3 consecutiv e weeks, then remove for 1 week. NuvaRing Yes [id number] 1{each} Insert 1 [facility] 0.12-0.015 7-27 Each into ity of mg/24 hr 00:00: vagina [place] vaginal 00 once every Medica l insert month. Branch Insert vaginally and leave in place for 3 consecutiv e weeks, then remove for 1 week. NuvaRing Yes [id number] 1{each} Insert 1 [facility] 0.12-0.015 7-27 Each into ity of mg/24 hr 00:00: vagina [place] vaginal 00 once every Medica l insert month. Branch Insert vaginally and leave in place for 3 consecutiv e weeks, then remove for 1 week. NuvaRing Yes [id number] 1{each} Insert 1 [facility] 0.12-0.015 7-27 Each into ity of mg/24 hr 00:00: vagina [place] vaginal 00 once every Medica l insert month. Branch Insert vaginally and leave in place for 3 consecutiv e weeks, then remove for 1 week. NuvaRing Yes [id number] 1{each} Insert 1 [facility] 0.12-0.015 7-27 Each into ity of mg/24 hr 00:00: vagina [place] vaginal 00 once every Medica l insert month. Branch Insert vaginally and leave in place for 3 consecutiv e weeks, then remove for 1 week. NuvaRing 0 Yes [id number] 1{each} Insert 1 [facility] 0.12-0.015 7-27 Each into ity of mg/24 hr 00:00: vagina [place] vaginal 00 once every Medica l insert month. Branch Insert vaginally and leave in place for 3 consecutiv e weeks, then remove for 1 week. NuvaRing 0 Yes [id number] 1{each} Insert 1 [facility] 0.12-0.015 7-27 Each into ity of mg/24 hr 00:00: vagina [place] vaginal 00 once every Medica l insert month. Branch Insert vaginally and leave in place for 3 consecutiv e weeks, then remove for 1 week. NuvaRing Yes [id number] 1{each} Insert 1 [facility] 0.12-0.015 7-27 Each into ity of mg/24 hr 00:00: vagina [place] vaginal 00 once every Medica l insert month. Branch Insert vaginally and leave in place for 3 consecutiv e weeks, then remove for 1 week. NuvaRing Yes [id number] 1{each} Insert 1 [facility] 0.12-0.015 7-27 Each into ity of mg/24 hr 00:00: vagina [place] vaginal 00 once every Medica l insert month. Branch Insert vaginally and leave in place for 3 consecutiv e weeks, then remove for 1 week. NuvaRing 0 Yes [id number] 1{each} Insert 1 [facility] 0.12-0.015 7-27 Each into ity of mg/24 hr 00:00: vagina [place] vaginal 00 once every Medica l insert month. Branch Insert vaginally and leave in place for 3 consecutiv e weeks, then remove for 1 week. NuvaRing 0 Yes [id number] 1{each} Insert 1 [facility] 0.12-0.015 7-27 Each into ity of mg/24 hr 00:00: vagina [place] vaginal 00 once every Medica l insert month. Branch Insert vaginally and leave in place for 3 consecutiv e weeks, then remove for 1 week. NuvaRing 2022-0 Yes [id number] 1{each} Insert 1 [facility] 0.12-0.015 7-27 Each into ity of mg/24 hr 00:00: vagina [place] vaginal 00 once every Medica l insert month. Branch Insert vaginally and leave in place for 3 consecutiv e weeks, then remove for 1 week. NuvaRing 2022-0 Yes [id number] 1{each} Insert 1 [facility] 0.12-0.015 7-27 Each into ity of mg/24 hr 00:00: vagina [place] vaginal 00 once every Medica l insert month. Branch Insert vaginally and leave in place for 3 consecutiv e weeks, then remove for 1 week. NuvaRing 2022-0 Yes [id number] 1{each} Insert 1 [facility] 0.12-0.015 7-27 Each into ity of mg/24 hr 00:00: vagina [place] vaginal 00 once every Medica l insert month. Branch Insert vaginally and leave in place for 3 consecutiv e weeks, then remove for 1 week. NuvaRing 2022-0 Yes [id number] 1{each} Insert 1 [facility] 0.12-0.015 7-27 Each into ity of mg/24 hr 00:00: vagina [place] vaginal 00 once every Medica l insert month. Branch Insert vaginally and leave in place for 3 consecutiv e weeks, then remove for 1 week. NuvaRing 2022-0 Yes [id number] 1{each} Insert 1 [facility] 0.12-0.015 7-27 Each into ity of mg/24 hr 00:00: vagina [place] vaginal 00 once every Medica l insert month. Branch Insert vaginally and leave in place for 3 consecutiv e weeks, then remove for 1 week. NuvaRing 2022-0 Yes [id number] 1{each} Insert 1 [facility] 0.12-0.015 7-27 Each into ity of mg/24 hr 00:00: vagina [place] vaginal 00 once every Medica l insert month. Branch Insert vaginally and leave in place for 3 consecutiv e weeks, then remove for 1 week. NuvaRing 2022-0 Yes [id number] 1{each} Insert 1 [facility] 0.12-0.015 7-27 Each into ity of mg/24 hr 00:00: vagina [place] vaginal 00 once every Medica l insert month. Branch Insert vaginally and leave in place for 3 consecutiv e weeks, then remove for 1 week. NuvaRing Yes [id number] 1{each} Insert 1 [facility] 0.12-0.015 7-27 Each into ity of mg/24 hr 00:00: vagina [place] vaginal 00 once every Medica l insert month. Branch Insert vaginally and leave in place for 3 consecutiv e weeks, then remove for 1 week. NuvaRing Yes [id number] 1{each} Insert 1 [facility] 0.12-0.015 7-27 Each into ity of mg/24 hr 00:00: vagina [place] vaginal 00 once every Medica l insert month. Branch Insert vaginally and leave in place for 3 consecutiv e weeks, then remove for 1 week. NuvaRing Yes [id number] 1{each} Insert 1 [facility] 0.12-0.015 7-27 Each into ity of mg/24 hr 00:00: vagina [place] vaginal 00 once every Medica l insert month. Branch Insert vaginally and leave in place for 3 consecutiv e weeks, then remove for 1 week. NuvaRing Yes [id number] 1{each} Insert 1 [facility] 0.12-0.015 7-27 Each into ity of mg/24 hr 00:00: vagina [place] vaginal 00 once every Medica l insert month. Branch Insert vaginally and leave in place for 3 consecutiv e weeks, then remove for 1 week. NuvaRing Yes [id number] 1{each} Insert 1 [facility] 0.12-0.015 7-27 Each into ity of mg/24 hr 00:00: vagina [place] vaginal 00 once every Medica l insert month. Branch Insert vaginally and leave in place for 3 consecutiv e weeks, then remove for 1 week. NuvaRing Yes [id number] 1{each} Insert 1 [facility] 0.12-0.015 7-27 Each into ity of mg/24 hr 00:00: vagina [place] vaginal 00 once every Medica l insert month. Branch Insert vaginally and leave in place for 3 consecutiv e weeks, then remove for 1 week. proMETHazin Yes [id number] TAKE 2 [facility] e 12.5 mg 7-25 TABLETS BY ity of tablet 00:00: MOUTH [place] 00 EVERY 6 Medical HOURS Branch NEEDED FOR NAUSEA AND VOMITING meclizine Yes [id number] TAKE 1 U nivers 25 mg 7-25 TABLET BY ity of tablet 00:00: MOUTH [place] 00 EVERY 8 Medical HOURS Branch NEEDED escitalopra Yes [id number] 20mg Take 1 [facility] m oxalate 7-25 tablet by ity o f (LEXAPRO) 00:00: mouth [place] 20 mg 00 the Medical tablet morning. Branch atorvastati Yes [id number] 20mg Take 1 [facility] n 20 mg 7-25 tablet by ity of tablet 00:00: mouth at [place] 00 bedtime. Medical Branch semaglutide Yes [id number] INJECT 2 [facility] (OZEMPIC) 2 7-25 MG UNDER ity of mg/dose (8 00:00: THE SKIN [place] mg/3 mL) 00 WEEKLY Medical PnIj Branch proMETHazin Yes [id number] TAKE 2 [facility] e 12.5 mg 7-25 TABLETS BY ity of tablet 00:00: MOUTH [place] 00 EVERY 6 Medical HOURS Branch NEEDED FOR NAUSEA AND VOMITING meclizine Yes [id number] TAKE 1 U nivers 25 mg 7-25 TABLET BY ity of tablet 00:00: MOUTH [place] 00 EVERY 8 Medical HOURS Branch NEEDED escitalopra Yes [id number] 20mg Take 1 [facility] m oxalate 7-25 tablet by ity o f (LEXAPRO) 00:00: [place] 20 mg 00 the Medical tablet morning. Branch atorvastati Yes [id number] 20mg Take 1 [facility] n 20 mg 7-25 tablet by ity of tablet 00:00: mouth at [place] 00 bedtime. Medical Branch semaglutide Yes [id number] INJECT 2 [facility] (OZEMPIC) 2 7-25 MG UNDER ity of mg/dose (8 00:00: THE SKIN [place] mg/3 mL) 00 WEEKLY Medical PnIj Branch proMETHazin Yes [id number] TAKE 2 [facility] e 12.5 mg 7-25 TABLETS BY ity of tablet 00:00: MOUTH [place] 00 EVERY 6 Medical HOURS Branch NEEDED FOR NAUSEA AND VOMITING meclizine Yes [id number] TAKE 1 U nivers 25 mg 7-25 TABLET BY ity of tablet 00:00: MOUTH [place] 00 EVERY 8 Medical HOURS Branch NEEDED escitalopra Yes [id number] 20mg Take 1 [facility] m oxalate 7-25 tablet by ity o f (LEXAPRO) 00:00: mouth [place] 20 mg 00 the Medical tablet morning. Branch atorvastati Yes [id number] 20mg Take 1 [facility] n 20 mg 7-25 tablet by ity of tablet 00:00: mouth at [place] 00 bedtime. Medical Branch semaglutide Yes [id number] INJECT 2 [facility] (OZEMPIC) 2 7-25 MG UNDER ity of mg/dose (8 00:00: THE SKIN [place] mg/3 mL) 00 WEEKLY Medical PnIj Branch proMETHazin Yes [id number] TAKE 2 [facility] e 12.5 mg 7-25 TABLETS BY ity of tablet 00:00: MOUTH [place] 00 EVERY 6 Medical HOURS Branch NEEDED FOR NAUSEA AND VOMITING meclizine Yes [id number] TAKE 1 U nivers 25 mg 7-25 TABLET BY ity of tablet 00:00: MOUTH [place] 00 EVERY 8 Medical HOURS Branch NEEDED escitalopra Yes [id number] 20mg Take 1 [facility] m oxalate 7-25 tablet by ity o f (LEXAPRO) 00:00: mouth [place] 20 mg 00 the Medical tablet morning. Branch atorvastati Yes [id number] 20mg Take 1 [facility] n 20 mg 7-25 tablet by ity of tablet 00:00: mouth at [place] 00 bedtime. Medical Branch semaglutide Yes [id number] INJECT 2 [facility] (OZEMPIC) 2 7-25 MG UNDER ity of mg/dose (8 00:00: THE SKIN [place] mg/3 mL) 00 WEEKLY Medical PnIj Branch proMETHazin Yes [id number] TAKE 2 [facility] e 12.5 mg 7-25 TABLETS BY ity of tablet 00:00: MOUTH [place] 00 EVERY 6 Medical HOURS Branch NEEDED FOR NAUSEA AND VOMITING meclizine 2022- Yes [id number] TAKE 1 U nivers 25 mg 7-25 TABLET BY ity of tablet 00:00: MOUTH [place] 00 EVERY 8 Medical HOURS Branch NEEDED escitalopra Yes [id number] 20mg Take 1 [facility] m oxalate 7-25 tablet by ity o f (LEXAPRO) 00:00: mouth [place] 20 mg 00 the Medical tablet morning. Branch atorvastati Yes [id number] 20mg Take 1 [facility] n 20 mg 7-25 tablet by ity of tablet 00:00: mouth at [place] 00 bedtime. Medical Branch semaglutide Yes [id number] INJECT 2 [facility] (OZEMPIC) 2 7-25 MG UNDER ity of mg/dose (8 00:00: THE SKIN [place] mg/3 mL) 00 WEEKLY Medical PnIj Branch proMETHazin Yes [id number] TAKE 2 [facility] e 12.5 mg 7-25 TABLETS BY ity of tablet 00:00: MOUTH [place] 00 EVERY 6 Medical HOURS Branch NEEDED FOR NAUSEA AND VOMITING meclizine 2022- Yes [id number] TAKE 1 U nivers 25 mg 7-25 TABLET BY ity of tablet 00:00: MOUTH [place] 00 EVERY 8 Medical HOURS Branch NEEDED escitalopra 2022- Yes [id number] 20mg Take 1 [facility] m oxalate 7-25 tablet by ity o f (LEXAPRO) 00:00: mouth [place] mg 00 the Medical tablet morning. Branch atorvastati Yes [id number] 20mg Take 1 [facility] n 20 mg 7-25 tablet by ity of tablet 00:00: mouth at [place] 00 bedtime. Medical Branch semaglutide Yes [id number] INJECT 2 [facility] (OZEMPIC) 2 7-25 MG UNDER ity of mg/dose (8 00:00: THE SKIN [place] mg/3 mL) 00 WEEKLY Medical PnIj Branch proMETHazin Yes [id number] TAKE 2 [facility] e 12.5 mg 7-25 TABLETS BY ity of tablet 00:00: MOUTH [place] 00 EVERY 6 Medical HOURS Branch NEEDED FOR NAUSEA AND VOMITING meclizine 2022-0 Yes [id number] TAKE 1 [facility] nivers 25 mg 7-25 TABLET BY ity of tablet 00:00: MOUTH [place] 00 EVERY 8 Medical HOURS Branch NEEDED escitalopra Yes [id number] 20mg Take 1 [facility] m oxalate 7-25 tablet by ity o f (LEXAPRO) 00:00: mouth [place] mg 00 the Medical tablet morning. Branch atorvastati Yes [id number] 20mg Take 1 [facility] n 20 mg 7-25 tablet by [facility] of tablet 00:00: mouth at [place] 00 bedtime. [facility] semaglutide Yes [id number] INJECT 2 [facility] (OZEMPIC) 2 7-25 MG UNDER ity of mg/dose (8 00:00: THE SKIN [place] mg/3 mL) 00 WEEKLY Medical PnIj Branch proMETHazin Yes [id number] TAKE 2 [facility] e 12.5 mg 7-25 TABLETS BY ity of tablet 00:00: MOUTH [place] 00 EVERY 6 Medical HOURS Branch NEEDED FOR NAUSEA AND VOMITING meclizine Yes [id number] TAKE 1 [facility] 25 mg 7-25 TABLET BY [facility] of tablet 00:00: MOUTH [place] 00 EVERY 8 Medical HOURS Branch NEEDED escitalopra Yes [id number] 20mg Take 1 [facility] m oxalate 7-25 tablet by ity o f (LEXAPRO) 00:00: mouth [place] 20 mg 00 the Medical tablet morning. Branch atorvastati Yes [id number] 20mg Take 1 [facility] n 20 mg 7-25 tablet by [facility] of tablet 00:00: mouth at [place] 00 bedtime. Medical [facility] semaglutide Yes [id number] INJECT 2 [facility] (OZEMPIC) 2 7-25 MG UNDER it[facility] of mg/dose (8 00:00: THE SKIN [place] mg/3 mL) 00 WEEKLY Medical PnIj Branch proMETHazin Yes [id number] TAKE 2 [facility] e 12.5 mg 7-25 TABLETS BY ity of tablet 00:00: MOUTH [place] 00 EVERY 6 Medical HOURS Branch NEEDED FOR NAUSEA AND VOMITING meclizine Yes [id number] TAKE 1 [facility] 25 mg 7-25 TABLET BY it[facility] of tablet 00:00: MOUTH [place] 00 EVERY 8 Medical HOURS Branch NEEDED escitalopra Yes [id number] 20mg Take 1 [facility] m oxalate 7-25 tablet by ity o f (LEXAPRO) 00:00: mouth [place] 20 mg 00 the Medical tablet morning. Branch atorvastati Yes [id number] 20mg Take 1 [facility] n 20 mg 7-25 tablet by [facility] of tablet 00:00: mouth at [place] 00 bedtime. Medical [facility] semaglutide Yes [id number] INJECT 2 [facility] (OZEMPIC) 2 7-25 MG UNDER it[facility] of mg/dose (8 00:00: THE SKIN [place] mg/3 mL) 00 WEEKLY Medical PnIj Branch proMETHazin Yes [id number] TAKE 2 [facility] e 12.5 mg 7-25 TABLETS BY it[facility] of tablet 00:00: MOUTH [place] 00 EVERY 6 Medical HOURS Branch NEEDED FOR NAUSEA AND VOMITING meclizine Yes [id number] TAKE 1 [facility] 25 mg 7-25 TABLET BY it[facility] of tablet 00:00: MOUTH [place] 00 EVERY 8 Medical HOURS Branch NEEDED escitalopra Yes [id number] 20mg Take 1 [facility] m oxalate 7-25 tablet by ity o f (LEXAPRO) 00:00: mouth [place] 20 mg 00 the Medical tablet morning. Branch atorvastati Yes [id number] 20mg Take 1 [facility] n 20 mg 7-25 tablet by [facility] of tablet 00:00: mouth at [place] 00 bedtime. Medical [facility] semaglutide Yes [id number] INJECT 2 [facility] (OZEMPIC) 2 7-25 MG UNDER [facility] of mg/dose (8 00:00: THE SKIN [place] mg/3 mL) 00 WEEKLY Medical PnIj Branch proMETHazin Yes [id number] TAKE 2 [facility] e 12.5 mg 7-25 TABLETS BY it[facility] of tablet 00:00: MOUTH [place] 00 EVERY 6 Medical HOURS Branch NEEDED FOR NAUSEA AND VOMITING meclizine Yes [id number] TAKE 1 [facility] 25 mg 7-25 TABLET BY ity of tablet 00:00: MOUTH [place] 00 EVERY 8 Medical HOURS Branch NEEDED escitalopra Yes [id number] 20mg Take 1 [facility] m oxalate 7-25 tablet by ity o f (LEXAPRO) 00:00: mouth [place] 20 mg 00 the Medical tablet morning. Branch atorvastati Yes [id number] 20mg Take 1 [facility] n 20 mg 7-25 tablet by it[facility] of tablet 00:00: mouth at [place] 00 bedtime. Medical Branch semaglutide Yes [id number] INJECT 2 [facility] (OZEMPIC) 2 7-25 MG UNDER [facility] of mg/dose (8 00:00: THE SKIN [place] mg/3 mL) 00 WEEKLY Medical PnIj Branch proMETHazin Yes [id number] TAKE 2 [facility] 12.5 mg 7-25 TABLETS BY ity of tablet 00:00: MOUTH [place] 00 EVERY 6 Medical HOURS Branch NEEDED FOR NAUSEA AND VOMITING meclizine Yes [id number] TAKE 1 [facility] 25 mg 7-25 TABLET BY ity of tablet 00:00: MOUTH [place] 00 EVERY 8 Medical HOURS Branch NEEDED escitalopra Yes [id number] 20mg Take 1 [facility] m oxalate 7-25 tablet by ity o f (LEXAPRO) 00:00: mouth [place] 20 mg 00 the Medical tablet morning. Branch atorvastati Yes [id number] 20mg Take 1 [facility] n 20 mg 7-25 tablet by [facility] of tablet 00:00: mouth at [place] 00 bedtime. Medical Branch semaglutide Yes [id number] INJECT 2 [facility] (OZEMPIC) 2 7-25 MG UNDER ity of mg/dose (8 00:00: THE SKIN [place] mg/3 mL) 00 WEEKLY Medical PnIj Branch proMETHazin Yes [id number] TAKE 2 [facility] e 12.5 mg 7-25 TABLETS BY ity of tablet 00:00: MOUTH [place] 00 EVERY 6 Medical HOURS Branch NEEDED FOR NAUSEA AND VOMITING meclizine Yes [id number] TAKE 1 [facility] 25 mg 7-25 TABLET BY ity of tablet 00:00: MOUTH [place] 00 EVERY 8 Medical HOURS Branch NEEDED escitalopra Yes [id number] 20mg Take 1 [facility] m oxalate 7-25 tablet by ity o f (LEXAPRO) 00:00: mouth [place] 20 mg 00 the Medical tablet morning. Branch atorvastati Yes [id number] 20mg Take 1 [facility] n 20 mg 7-25 tablet by it[facility] of tablet 00:00: mouth at [place] 00 bedtime. Medical Branch semaglutide Yes [id number] INJECT 2 [facility] (OZEMPIC) 2 7-25 MG UNDER ity of mg/dose (8 00:00: THE SKIN [place] mg/3 mL) 00 WEEKLY Medical PnIj Branch proMETHazin Yes [id number] TAKE 2 [facility] 12.5 mg 7-25 TABLETS BY ity of tablet 00:00: MOUTH [place] 00 EVERY 6 Medical HOURS Branch NEEDED FOR NAUSEA AND VOMITING meclizine Yes [id number] TAKE 1 [facility] 25 mg 7-25 TABLET BY ity of tablet 00:00: MOUTH [place] 00 EVERY 8 Medical HOURS Branch NEEDED escitalopra Yes [id number] 20mg Take 1 [facility] m oxalate 7-25 tablet by ity o f (LEXAPRO) 00:00: mouth [place] 20 mg 00 the Medical tablet morning. Branch atorvastati Yes [id number] 20mg Take 1 [facility] n 20 mg 7-25 tablet by [facility] of tablet 00:00: mouth at [place] 00 bedtime. Medical Branch proMETHazin Yes [id number] TAKE 2 [facility] 12.5 mg 7-25 TABLETS BY ity of tablet 00:00: MOUTH [place] 00 EVERY 6 Medical HOURS Branch NEEDED FOR NAUSEA AND VOMITING meclizine Yes [id number] TAKE 1 [facility] 25 mg 7-25 TABLET BY ity of tablet 00:00: MOUTH [place] 00 EVERY 8 Medical HOURS Branch NEEDED escitalopra Yes [id number] 20mg Take 1 [facility] m oxalate 7-25 tablet by ity o f (LEXAPRO) 00:00: mouth [place] 20 mg 00 the Medical tablet morning. Branch atorvastati Yes [id number] 20mg Take 1 [facility] n 20 mg 7-25 tablet by ity of tablet 00:00: mouth at [place] 00 bedtime. Medical Branch proMETHazin Yes [id number] TAKE 2 [facility] 12.5 mg 7-25 TABLETS BY ity of tablet 00:00: MOUTH [place] 00 EVERY 6 Medical HOURS Branch NEEDED FOR NAUSEA AND VOMITING meclizine Yes [id number] TAKE 1 [facility] 25 mg 7-25 TABLET BY ity of tablet 00:00: MOUTH [place] 00 EVERY 8 Medical HOURS Branch NEEDED escitalopra 2022- Yes [id number] 20mg Take 1 [facility] m oxalate 7-25 tablet by ity o f (LEXAPRO) 00:00: mouth [place] 20 mg 00 the Medical tablet morning. Branch atorvastati Yes [id number] 20mg Take 1 [facility] n 20 mg 7-25 tablet by ity of tablet 00:00: mouth at [place] 00 bedtime. Medical Branch proMETHazin Yes [id number] TAKE 2 [facility] 12.5 mg 7-25 TABLETS BY ity of tablet 00:00: MOUTH [place] 00 EVERY 6 Medical HOURS Branch NEEDED FOR NAUSEA AND VOMITING meclizine 2022- Yes [id number] TAKE 1 [facility] 25 mg 7-25 TABLET BY ity of tablet 00:00: MOUTH [place] 00 EVERY 8 Medical HOURS Branch NEEDED escitalopra 2022-0 Yes [id number] 20mg Take 1 [facility] m oxalate 7-25 tablet by ity o f (LEXAPRO) 00:00: mouth [place] 20 mg 00 the Medical tablet morning. Branch atorvastati Yes [id number] 20mg Take 1 [facility] n 20 mg 7-25 tablet by it[facility] of tablet 00:00: mouth at [place] 00 bedtime. Medical Branch proMETHazin Yes [id number] TAKE 2 [facility] 12.5 mg 7-25 TABLETS BY ity of tablet 00:00: MOUTH [place] 00 EVERY 6 Medical HOURS Branch NEEDED FOR NAUSEA AND VOMITING meclizine 2022-0 Yes [id number] TAKE 1 [facility] 25 mg 7-25 TABLET BY ity of tablet 00:00: MOUTH [place] 00 EVERY 8 Medical HOURS Branch NEEDED escitalopra 2022-0 Yes [id number] 20mg Take 1 [facility] m oxalate 7-25 tablet by ity o f (LEXAPRO) 00:00: mouth [place] 20 mg 00 the Medical tablet morning. Branch atorvastati Yes [id number] 20mg Take 1 [facility] n 20 mg 7-25 tablet by [facility] of tablet 00:00: mouth at [place] 00 bedtime. Medical Branch meclizine 2022- Yes [id number] TAKE 1 [facility] 25 mg 7-25 TABLET BY ity of tablet 00:00: MOUTH [place] 00 EVERY 8 Medical HOURS Branch NEEDED escitalopra 2022-0 Yes [id number] 20mg Take 1 [facility] m oxalate 7-25 tablet by ity o f (LEXAPRO) 00:00: mouth [place] 20 mg 00 the Medical tablet morning. Branch atorvastati Yes [id number] 20mg Take 1 [facility] n 20 mg 7-25 tablet by ity of tablet 00:00: mouth at [place] 00 bedtime. Medical Branch meclizine 2022-0 Yes [id number] TAKE 1 [facility] 25 mg 7-25 TABLET BY ity of tablet 00:00: MOUTH [place] 00 EVERY 8 Medical HOURS Branch NEEDED escitalopra 2022-0 Yes [id number] 20mg Take 1 [facility] m oxalate 7-25 tablet by ity o f (LEXAPRO) 00:00: mouth [place] 20 mg 00 the Medical tablet morning. Branch atorvastati 0 Yes [id number] 20mg Take 1 [facility] n 20 mg 7-25 tablet by ity of tablet 00:00: mouth at [place] 00 bedtime. Medical Branch meclizine 2022-0 Yes [id number] TAKE 1 [facility] 25 mg 7-25 TABLET BY ity of tablet 00:00: MOUTH [place] 00 EVERY 8 Medical HOURS Branch NEEDED escitalopra 2022-0 Yes [id number] 20mg Take 1 [facility] m oxalate 7-25 tablet by ity o f (LEXAPRO) 00:00: mouth [place] 20 mg 00 the Medical tablet morning. Branch atorvastati 0 Yes [id number] 20mg Take 1 [facility] n 20 mg 7-25 tablet by it[facility] of tablet 00:00: mouth at [place] 00 bedtime. Medical Branch meclizine 2022-0 Yes [id number] TAKE 1 [facility] 25 mg 7-25 TABLET BY ity of tablet 00:00: MOUTH [place] 00 EVERY 8 Medical HOURS Branch NEEDED escitalopra 2022-0 Yes [id number] 20mg Take 1 [facility] m oxalate 7-25 tablet by ity o f (LEXAPRO) 00:00: mouth [place] 20 mg 00 the Medical tablet morning. Branch atorvastati 2022-0 Yes [id number] 20mg Take 1 [facility] n 20 mg 7-25 tablet by ity of tablet 00:00: mouth at [place] 00 bedtime. Medical Branch meclizine Yes [id number] TAKE 1 [facility] 25 mg 7-25 TABLET BY ity of tablet 00:00: MOUTH [place] 00 EVERY 8 Medical HOURS Branch NEEDED escitalopra Yes [id number] 20mg Take 1 [facility] m oxalate 7-25 tablet by ity o f (LEXAPRO) 00:00: mouth [place] 20 mg 00 the Medical tablet morning. Branch atorvastati Yes [id number] 20mg Take 1 [facility] n 20 mg 7-25 tablet by ity of tablet 00:00: mouth at [place] 00 bedtime. Medical Branch meclizine Yes [id number] TAKE 1 [facility] 25 mg 7-25 TABLET BY ity of tablet 00:00: MOUTH [place] 00 EVERY 8 Medical HOURS Branch NEEDED escitalopra Yes [id number] 20mg Take 1 [facility] m oxalate 7-25 tablet by ity o f (LEXAPRO) 00:00: mouth [place] 20 mg 00 the Medical tablet morning. Branch atorvastati Yes [id number] 20mg Take 1 [facility] n 20 mg 7-25 tablet by ity of tablet 00:00: mouth at [place] 00 bedtime. Medical Branch meclizine Yes [id number] TAKE 1 [facility] 25 mg 7-25 TABLET BY ity of tablet 00:00: MOUTH [place] 00 EVERY 8 Medical HOURS Branch NEEDED escitalopra Yes [id number] 20mg Take 1 [facility] m oxalate 7-25 tablet by ity o f (LEXAPRO) 00:00: mouth [place] 20 mg 00 the Medical tablet morning. Branch atorvastati Yes [id number] 20mg Take 1 [facility] n 20 mg 7-25 tablet by ity of tablet 00:00: mouth at [place] 00 bedtime. Medical Branch meclizine Yes [id number] TAKE 1 [facility] 25 mg 7-25 TABLET BY ity of tablet 00:00: MOUTH [place] 00 EVERY 8 Medical HOURS Branch NEEDED escitalopra 2022- Yes [id number] 20mg Take 1 [facility] m oxalate 7-25 tablet by ity o f (LEXAPRO) 00:00: mouth [place] 20 mg 00 the Medical tablet morning. Branch atorvastati Yes [id number] 20mg Take 1 [facility] n 20 mg 7-25 tablet by ity of tablet 00:00: mouth at [place] 00 bedtime. Medical Branch meclizine Yes [id number] TAKE 1 [facility] 25 mg 7-25 TABLET BY ity of tablet 00:00: MOUTH [place] 00 EVERY 8 Medical HOURS Branch NEEDED escitalopra 2022- Yes [id number] 20mg Take 1 [facility] m oxalate 7-25 tablet by ity o f (LEXAPRO) 00:00: mouth [place] 20 mg 00 the Medical tablet morning. Branch atorvastati Yes [id number] 20mg Take 1 [facility] n 20 mg 7-25 tablet by ity of tablet 00:00: mouth at [place] 00 bedtime. Medical Branch meclizine Yes [id number] TAKE 1 [facility] 25 mg 7-25 TABLET BY ity of tablet 00:00: MOUTH [place] 00 EVERY 8 Medical HOURS Branch NEEDED escitalopra 2022- Yes [id number] 20mg Take 1 [facility] m oxalate 7-25 tablet by ity o f (LEXAPRO) 00:00: mouth [place] 20 mg 00 the Medical tablet morning. Branch atorvastati Yes [id number] 20mg Take 1 [facility] n 20 mg 7-25 tablet by ity of tablet 00:00: mouth at [place] 00 bedtime. Medical Branch meclizine Yes [id number] TAKE 1 [facility] 25 mg 7-25 TABLET BY ity of tablet 00:00: MOUTH [place] 00 EVERY 8 Medical HOURS Branch NEEDED escitalopra 2022- Yes [id number] 20mg Take 1 [facility] m oxalate 7-25 tablet by ity o f (LEXAPRO) 00:00: mouth [place] 20 mg 00 the Medical tablet morning. Branch atorvastati Yes [id number] 20mg Take 1 [facility] n 20 mg 7-25 tablet by ity of tablet 00:00: mouth at [place] 00 bedtime. Medical Branch meclizine Yes [id number] TAKE 1 [facility] 25 mg 7-25 TABLET BY ity of tablet 00:00: MOUTH [place] 00 EVERY 8 Medical HOURS Branch NEEDED escitalopra 0 Yes [id number] 20mg Take 1 [facility] m oxalate 7-25 tablet by ity o f (LEXAPRO) 00:00: mouth [place] 20 mg 00 the Medical tablet morning. Branch atorvastati Yes [id number] 20mg Take 1 [facility] n 20 mg 7-25 tablet by ity of tablet 00:00: mouth at [place] 00 bedtime. Medical Branch meclizine Yes [id number] TAKE 1 [facility] 25 mg 7-25 TABLET BY ity of tablet 00:00: MOUTH [place] 00 EVERY 8 Medical HOURS Branch NEEDED escitalopra Yes [id number] 20mg Take 1 [facility] m oxalate 7-25 tablet by ity o f (LEXAPRO) 00:00: mouth in [place] 20 mg 00 the Medical tablet morning. Branch atorvastati Yes [id number] 20mg Take 1 [facility] n 20 mg 7-25 tablet by ity of tablet 00:00: mouth at [place] 00 bedtime. Medical Branch meclizine Yes [id number] TAKE 1 [facility] 25 mg 7-25 TABLET BY ity of tablet 00:00: MOUTH [place] 00 EVERY 8 Medical HOURS Branch NEEDED escitalopra Yes [id number] 20mg Take 1 [facility] m oxalate 7-25 tablet by ity o f (LEXAPRO) 00:00: mouth in [place] 20 mg 00 the Medical tablet morning. Branch atorvastati 0 Yes [id number] 20mg Take 1 [facility] n 20 mg 7-25 tablet by ity of tablet 00:00: mouth at [place] 00 bedtime. Medical Branch meclizine 2022-0 Yes [id number] TAKE 1 [facility] 25 mg 7-25 TABLET BY ity of tablet 00:00: MOUTH [place] 00 EVERY 8 Medical HOURS Branch NEEDED escitalopra 2022-0 Yes [id number] 20mg Take 1 [facility] m oxalate 7-25 tablet by ity o f (LEXAPRO) 00:00: mouth in [place] 20 mg 00 the Medical tablet morning. Branch atorvastati Yes [id number] 20mg Take 1 [facility] n 20 mg 7-25 tablet by ity of tablet 00:00: mouth at [place] 00 bedtime. Medical Branch meclizine Yes [id number] TAKE 1 [facility] 25 mg 7-25 TABLET BY ity of tablet 00:00: MOUTH [place] 00 EVERY 8 Medical HOURS Branch NEEDED escitalopra Yes [id number] 20mg Take 1 [facility] m oxalate 7-25 tablet by ity o f (LEXAPRO) 00:00: mouth in [place] 20 mg 00 the Medical tablet morning. Branch atorvastati Yes [id number] 20mg Take 1 [facility] n 20 mg 7-25 tablet by ity of tablet 00:00: mouth at [place] 00 bedtime. Medical Branch escitalopra Yes [id number] 20mg Take 1 [facility] m oxalate 7-25 tablet by ity o f (LEXAPRO) 00:00: mouth [place] 20 mg 00 the Medical tablet morning. Branch escitalopra Yes [id number] 20mg Take 1 [facility] m oxalate 7-25 tablet by ity o f (LEXAPRO) 00:00: mouth [place] 20 mg 00 the Medical tablet morning. Branch escitalopra Yes [id number] 20mg Take 1 [facility] m oxalate 7-25 tablet by ity o f (LEXAPRO) 00:00: mouth [place] 20 mg 00 the Medical tablet morning. Branch escitalopra Yes [id number] 20mg Take 1 [facility] m oxalate 7-25 tablet by ity o f (LEXAPRO) 00:00: mouth [place] 20 mg 00 the Medical tablet morning. Branch escitalopra Yes [id number] 20mg Take 1 [facility] m oxalate 7-25 tablet by ity o f (LEXAPRO) 00:00: mouth [place] 20 mg 00 the Medical tablet morning. Branch escitalopra Yes [id number] 20mg Take 1 [facility] m oxalate 7-25 tablet by ity o f (LEXAPRO) 00:00: mouth [place] 20 mg 00 the Medical tablet morning. Branch escitalopra Yes [id number] 20mg Take 1 [facility] m oxalate 7-25 tablet by ity o f (LEXAPRO) 00:00: mouth [place] 20 mg 00 the Medical tablet morning. Branch escitalopra 0 Yes [id number] 20mg Take 1 [facility] m oxalate 7-25 tablet by ity o f (LEXAPRO) 00:00: mouth [place] 20 mg 00 the Medical tablet morning. Branch escitalopra Yes [id number] 20mg Take 1 [facility] m oxalate 7-25 tablet by ity o f (LEXAPRO) 00:00: mouth [place] 20 mg 00 the Medical tablet morning. Branch escitalopra Yes [id number] 20mg Take 1 [facility] m oxalate 7-25 tablet by ity o f (LEXAPRO) 00:00: mouth [place] 20 mg 00 the Medical tablet morning. Branch escitalopra Yes [id number] 20mg Take 1 [facility] m oxalate 7-25 tablet by ity o f (LEXAPRO) 00:00: mouth [place] 20 mg 00 the Medical tablet morning. Branch escitalopra Yes [id number] 20mg Take 1 [facility] m oxalate 7-25 tablet by ity o f (LEXAPRO) 00:00: mouth [place] 20 mg 00 the Medical tablet morning. Branch escitalopra Yes [id number] 20mg Take 1 [facility] m oxalate 7-25 tablet by ity o f (LEXAPRO) 00:00: mouth [place] 20 mg 00 the Medical tablet morning. Branch escitalopra Yes [id number] 20mg Take 1 [facility] m oxalate 7-25 tablet by ity o f (LEXAPRO) 00:00: mouth [place] 20 mg 00 the Medical tablet morning. Branch meclizine 2022- No [id number] TAKE 1 [facility] 25 mg 7-25 10-25 TABLET BY ity of tablet 00:00: 00:00 MOUTH [place] 00 :00 EVERY 8 Medical HOURS Branch NEEDED atorvastati 2022- No [id number] 20mg Take 1 [facility] n 20 mg 7-25 10-25 tablet by ity of tablet 00:00: 00:00 mouth at [place] 00 :00 bedtime. Medical Branch meclizine 2022- No [id number] TAKE 1 [facility] 25 mg 7-25 10-25 TABLET BY ity of tablet 00:00: 00:00 MOUTH [place] 00 :00 EVERY 8 Medical HOURS Branch NEEDED atorvastati 2022- No [id number] 20mg Take 1 [facility] n 20 mg 7-25 10-25 tablet by ity of tablet 00:00: 00:00 mouth at [place] 00 :00 bedtime. Medical Branch proMETHazin 2022- No [id number] TAKE 2 [facility] e 12.5 mg 7-25 08-29 TABLETS BY ity of tablet 00:00: 00:00 MOUTH [place] 00 :00 EVERY 6 Medical HOURS Branch NEEDED FOR NAUSEA AND VOMITING proMETHazin 2022- No [id number] TAKE 2 [facility] e 12.5 mg 7-25 08-29 TABLETS BY ity of tablet 00:00: 00:00 MOUTH [place] 00 :00 EVERY 6 Medical HOURS Branch NEEDED FOR NAUSEA AND VOMITING proMETHazin 2022- No [id number] TAKE 2 [facility] e 12.5 mg 7-25 08-29 TABLETS BY ity of tablet 00:00: 00:00 MOUTH [place] 00 :00 EVERY 6 Medical HOURS Branch NEEDED FOR NAUSEA AND VOMITING semaglutide 2022- No [id number] INJECT 2 [facility] (OZEMPIC) 2 7-25 08-22 MG UNDER ity of mg/dose (8 00:00: 00:00 THE SKIN [place] mg/3 mL) 00 :00 WEEKLY Medical PnIj Branch OZEMPIC 2 Yes [id number] INJECT 2 [facility] mg/dose (8 7-18 MG UNDER ity o f mg/3 mL) 00:00: THE SKIN [place] PnIj 00 WEEKLY Medical Branch OZEMPIC 2 2022- No [id number] INJECT 2 [facility] mg/dose (8 7-18 07-25 MG UNDER ity of mg/3 mL) 00:00: 00:[place] PnIj 00 :00 WEEKLY [facility] Branch OZEMPIC 2 2022- No [id number] INJECT 2 [facility] mg/dose (8 7-18 07-25 MG UNDER ity of mg/3 mL) 00:00: 00:[place] PnIj 00 :00 WEEKLY Medical Branch NuvaRing Yes [id number] 1{each} Insert 1 [facility] 0.12-0.015 6-26 Each into ity of mg/24 hr 00:00: vagina [place] vaginal 00 once every Medica l insert month. Branch Insert vaginally and leave in place for 3 consecutiv e weeks, then remove for 1 week. NuvaRing Yes [id number] 1{each} Insert 1 [facility] 0.12-0.015 6-26 Each into ity of mg/24 hr 00:00: vagina [place] vaginal 00 once every Medica l insert month. Branch Insert vaginally and leave in place for 3 consecutiv e weeks, then remove for 1 week. NuvaRing Yes [id number] 1{each} Insert 1 [facility] 0.12-0.015 6-26 Each into ity of mg/24 hr 00:00: vagina [place] vaginal 00 once every Medica l insert month. Branch Insert vaginally and leave in place for 3 consecutiv e weeks, then remove for 1 week. NuvaRing Yes [id number] 1{each} Insert 1 [facility] 0.12-0.015 6-26 Each into ity of mg/24 hr 00:00: vagina [place] vaginal 00 once every Medica l insert month. Branch Insert vaginally and leave in place for 3 consecutiv e weeks, then remove for 1 week. NuvaRing 2022- No [id number] 1{each} Insert 1 [facility] 0.12-0.015 6-26 07-27 Each into ity of mg/24 hr 00:00: 00:00 vagina [place] vaginal 00 :00 once every Medica l insert month. Branch Insert vaginally and leave in place for 3 consecutiv e weeks, then remove for 1 week. NuvaRing 2022- No [id number] 1{each} Insert 1 [facility] 0.12-0.015 6-26 07-27 Each into ity of mg/24 hr 00:00: 00:00 vagina [place] vaginal 00 :00 once every Medica l insert month. Branch Insert vaginally and leave in place for 3 consecutiv e weeks, then remove for 1 week. NuvaRing 2022- No [id number] 1{each} Insert 1 [facility] 0.12-0.015 02-05 Each into ity of mg/24 hr 00:00: 00:00 vagina [place] vaginal 00 :00 once every Medica l insert month. Branch Insert vaginally and leave in place for 3 consecutiv e weeks, then remove for 1 week. tiZANidine 2023-0 Yes [id number] Take 1 [facility] 4 mg tablet 6-21 9100 tablet by ity of 00:00: mouth [place] 00 three Medical times Branch daily as needed for muscle spasm tiZANidine 2023-0 Yes [id number] Take 1 [facility] 4 mg tablet 6-21 9100 tablet by ity of 00:00: mouth [place] 00 three Medical times Branch daily as needed for muscle spasm tiZANidine 2023-0 Yes [id number] Take 1 [facility] 4 mg tablet 6-21 9100 tablet by ity of 00:00: mouth 00 three Medical times Branch daily as needed for muscle spasm tiZANidine 2023-0 Yes [id number] Take 1 [facility] 4 mg tablet 6- 9100 tablet by ity of 00:00: mouth [place] 00 three Medical times Branch daily as needed for muscle spasm tiZANidine 2023-0 Yes [id number] Take 1 [facility] 4 mg tablet 6- 9100 tablet by ity of 00:00: mouth [place] 00 three Medical times Branch daily as needed for muscle spasm tiZANidine 2023-0 Yes [id number] Take 1 [facility] 4 mg tablet 6-21 9100 tablet by ity of 00:00: mouth 00 three Medical times Branch daily as needed for muscle spasm tiZANidine 2023-0 Yes [id number] Take 1 [facility] 4 mg tablet 6- 9100 tablet by ity of 00:00: mouth [place] 00 three Medical times Branch daily as needed for muscle spasm tiZANidine 2023-0 2023- No [id number] Take 1 [facility] 4 mg tablet -03-13 9100 tablet by it y of 00:00: 00:00 mouth [place] 00 :00 three Medical times Branch daily as needed for muscle spasm tiZANidine 2023-0 2023- No [id number] Take 1 [facility] 4 mg tablet -03-13 9100 tablet by it y of 00:00: 00:00 mouth [place] 00 :00 three Medical times Branch daily as needed for muscle spasm tiZANidine 2023-0 3- No [id number] Take 1 [facility] 4 mg tablet 01-31 9100 tablet by it y of 00:00: 00:00 mouth [place] 00 :00 three Medical times Branch daily as needed for muscle spasm tiZANidine 2023-0 3- No [id number] Take 1 [facility] 4 mg tablet 01-31 9100 tablet by it y of 00:00: 00:00 mouth [place] 00 :00 three Medical times Branch daily as needed for muscle spasm tiZANidine 2023-0 3- No [id number] Take 1 [facility] 4 mg tablet 01-31 9100 tablet by it y of 00:00: 00:00 mouth [place] 00 :00 three Medical times Branch daily as needed for muscle spasm gabapentin 2023-0 Yes [id number] 600mg Take 1 [facility] 600 mg 6-20 tablet by ity of tablet 00:00: mouth in [place] the Medical morning Branch and 1 tablet at noon and 1 tablet in the evening. gabapentin 2023-0 Yes [id number] 600mg Take 1 [facility] 600 mg 6-20 tablet by ity of tablet 00:00: mouth in [place] [address] the Medical morning Branch and 1 tablet at noon and 1 tablet in the evening. gabapentin 2023-0 Yes [id number] 600mg Take 1 [facility] 600 mg 6-20 tablet by ity of tablet 00:00: mouth in [place] [address] the Medical morning Branch and 1 tablet at noon and 1 tablet in the evening. gabapentin 2023-0 Yes [id number] 600mg Take 1 [facility] 600 mg 6-20 tablet by ity of tablet 00:00: mouth in [place] [address] the Medical morning Branch and 1 tablet at noon and 1 tablet in the evening. gabapentin 2023-0 Yes [id number] 600mg Take 1 [facility] 600 mg 6-20 tablet by ity of tablet 00:00: mouth in [place] [address] the Medical morning Branch and 1 tablet at noon and 1 tablet in the evening. gabapentin 2023-0 Yes [id number] 600mg Take 1 [facility] 600 mg 6-20 tablet by ity of tablet 00:00: mouth in [place] [address] the Medical morning Branch and 1 tablet at noon and 1 tablet in the evening. gabapentin 2023-0 Yes [id number] 600mg Take 1 [facility] 600 mg 6-20 tablet by ity of tablet 00:00: mouth in [place] 00 the Medical morning Branch and 1 tablet at noon and 1 tablet in the evening. gabapentin 2023-0 Yes [id number] 600mg Take 1 [facility] 600 mg 6-20 tablet by ity of tablet 00:00: mouth in [place] 00 the [facility] morning [place] and 1 tablet at noon and 1 tablet in the evening. gabapentin 2023-0 Yes [id number] 600mg Take 1 [facility] 600 mg 6-20 tablet by ity of tablet 00:00: mouth in [place] 00 the [facility] morning Branch and 1 tablet at noon and 1 tablet in the evening. gabapentin 2023-0 2023- No [id number] 600mg Take 1 [facility] 600 mg 6-20 08-01 tablet by ity of tablet 00:00: 00:00 mouth in [place] 00 :00 the [facility] and 1 tablet at noon and 1 tablet in the evening. gabapentin 2023-0 2023- No [id number] 600mg Take 1 [facility] 600 mg 6-20 08-01 tablet by ity of tablet 00:00: 00:00 mouth in [place] 00 :00 the [facility] and 1 tablet at noon and 1 tablet in the evening. gabapentin 2023-0 2023- No [id number] 600mg Take 1 [facility] 600 mg 6-20 08-01 tablet by ity of tablet 00:00: 00:00 mouth in [place] 00 :00 the [facility] and 1 tablet at noon and 1 tablet in the evening. gabapentin 2023-0 2023- No [id number] 600mg Take 1 [facility] 600 mg 6-20 08-01 tablet by ity of tablet 00:00: 00:00 mouth in [place] 00 :00 the [facility] and 1 tablet at noon and 1 tablet in the evening. gabapentin 2023-0 2023- No [id number] 600mg Take 1 [facility] 600 mg 6-20 08-01 tablet by ity of tablet 00:00: 00:00 mouth in [place] 00 :00 the [facility] and 1 tablet at noon and 1 tablet in the evening. insulin NPH 2022-0 Yes [id number] 10U inject 10 [facility] (NOVOLIN N 6-17 Units ity of NPH U-100 00:00: under the [place] as INSULIN) 00 skin in [facility] 100 unit/mL the Branch injection morning. Inject only if fasting BG >150 insulin NPH 3-0 Yes [id number] 10U inject 10 [facility] (NOVOLIN N 6-17 Units ity of NPH U-100 00:00: under the [place] as INSULIN) 00 skin in Medical 100 unit/mL the Branch injection morning. Inject only if fasting BG >150 insulin NPH 2022-0 Yes [id number] 10U inject 10 [facility] (NOVOLIN N 6-17 Units ity of NPH U-100 00:00: under the [place] as INSULIN) 00 skin in Medical 100 unit/mL the Branch injection morning. Inject only if fasting BG >150 insulin NPH 2022-0 Yes [id number] 10U inject 10 [facility] (NOVOLIN N 6-17 Units ity of NPH U-100 00:00: under the [place] as INSULIN) 00 skin in Medical 100 unit/mL the Branch injection morning. Inject only if fasting BG >150 insulin NPH 2022-0 Yes [id number] 10U inject 10 [facility] (NOVOLIN N 6-17 Units ity of NPH U-100 00:00: under the [place] as INSULIN) 00 skin in Medical 100 unit/mL the Branch injection morning. Inject only if fasting BG >150 insulin NPH 2022-0 Yes [id number] 10U inject 10 [facility] (NOVOLIN N 6-17 Units ity of NPH U-100 00:00: under the [place] as INSULIN) 00 skin in Medical 100 unit/mL the Branch injection morning. Inject only if fasting BG >150 insulin NPH 2022-0 Yes [id number] 10U inject 10 [facility] (NOVOLIN N 6-17 Units ity of NPH U-100 00:00: under the [place] as INSULIN) 00 skin in Medical 100 unit/mL the Branch injection morning. Inject only if fasting BG >150 insulin NPH 2022-0 Yes [id number] 10U inject 10 [facility] (NOVOLIN N 6-17 Units ity of NPH U-100 00:00: under the [place] as INSULIN) 00 skin in Medical 100 unit/mL the Branch injection morning. Inject only if fasting BG >150 insulin NPH 2022-0 Yes [id number] 10U inject 10 [facility] (NOVOLIN N 6-17 Units ity of NPH U-100 00:00: under the [place] as INSULIN) 00 skin in Medical 100 unit/mL the Branch injection morning. Inject only if fasting BG >150 insulin NPH 2023-0 Yes [id number] 10U inject 10 [facility] (NOVOLIN N 6-17 Units ity of NPH U-100 00:00: under the [place] as INSULIN) 00 skin in Medical 100 unit/mL the Branch injection morning. Inject only if fasting BG >150 insulin NPH 2022-0 Yes [id number] 10U inject 10 [facility] (NOVOLIN N 6-17 Units ity of NPH U-100 00:00: under the [place] as INSULIN) 00 skin in Medical 100 unit/mL the Branch injection morning. Inject only if fasting BG >150 insulin NPH 0 Yes [id number] 10U inject 10 [facility] (NOVOLIN N 6-17 Units ity of NPH U-100 00:00: under the [place] as INSULIN) 00 skin in Medical 100 unit/mL the Branch injection morning. Inject only if fasting BG >150 insulin NPH 0 Yes [id number] 10U inject 10 [facility] (NOVOLIN N 6-17 Units ity of NPH U-100 00:00: under the [place] as INSULIN) 00 skin in Medical 100 unit/mL the Branch injection morning. Inject only if fasting BG >150 insulin NPH 0 Yes [id number] 10U inject 10 [facility] (NOVOLIN N 6-17 Units ity of NPH U-100 00:00: under the [place] as INSULIN) 00 skin in Medical 100 unit/mL the Branch injection morning. Inject only if fasting BG >150 insulin NPH 0 Yes [id number] 10U inject 10 [facility] (NOVOLIN N 6-17 Units ity of NPH U-100 00:00: under the [place] as INSULIN) 00 skin in Medical 100 unit/mL the Branch injection morning. Inject only if fasting BG >150 insulin NPH 2022-0 Yes [id number] 10U inject 10 [facility] (NOVOLIN N 6-17 Units ity of NPH U-100 00:00: under the [place] as INSULIN) 00 skin in Medical 100 unit/mL the Branch injection morning. Inject only if fasting BG >150 insulin NPH 2022-0 Yes [id number] 10U inject 10 [facility] (NOVOLIN N 6-17 Units ity of NPH U-100 00:00: under the [place] as INSULIN) 00 skin in Medical 100 unit/mL the Branch injection morning. Inject only if fasting BG >150 insulin NPH 0 Yes [id number] 10U inject 10 [facility] (NOVOLIN N 6-17 Units ity of NPH U-100 00:00: under the [place] as INSULIN) 00 skin in Medical 100 unit/mL the Branch injection morning. Inject only if fasting BG >150 insulin NPH 2022-0 Yes [id number] 10U inject 10 [facility] (NOVOLIN N 6-17 Units ity of NPH U-100 00:00: under the [place] as INSULIN) 00 skin in Medical 100 unit/mL the Branch injection morning. Inject only if fasting BG >150 insulin NPH 2022-0 Yes [id number] 10U inject 10 [facility] (NOVOLIN N 6-17 Units ity of NPH U-100 00:00: under the [place] as INSULIN) 00 skin in Medical 100 unit/mL the Branch injection morning. Inject only if fasting BG >150 insulin NPH 2022-0 Yes [id number] 10U inject 10 [facility] (NOVOLIN N 6-17 Units ity of NPH U-100 00:00: under the [place] as INSULIN) 00 skin in Medical 100 unit/mL the Branch injection morning. Inject only if fasting BG >150 insulin NPH 2022-0 Yes [id number] 10U inject 10 [facility] (NOVOLIN N 6-17 Units ity of NPH U-100 00:00: under the [place] as INSULIN) 00 skin in Medical 100 unit/mL the Branch injection morning. Inject only if fasting BG >150 insulin NPH 2022-0 Yes [id number] 10U inject 10 [facility] (NOVOLIN N 6-17 Units ity of NPH U-100 00:00: under the [place] as INSULIN) 00 skin in Medical 100 unit/mL the Branch injection morning. Inject only if fasting BG >150 insulin NPH 2022-0 Yes [id number] 10U inject 10 [facility] (NOVOLIN N 6-17 Units ity of NPH U-100 00:00: under the [place] as INSULIN) 00 skin in Medical 100 unit/mL the Branch injection morning. Inject only if fasting BG >150 PROMETHAZIN 2022-0 Yes [id number] TAKE 2 [facility] E 12.5 mg 6-15 TABLETS BY ity of tablet 00:00: MOUTH EVERY 6 Medical HOURS Branch NEEDED FOR NAUSEA AND VOMITING PROMETHAZIN 2022-0 Yes [id number] TAKE 2 [facility] E 12.5 mg 6-15 TABLETS BY ity of tablet 00:00: MOUTH EVERY 6 Medical HOURS Branch NEEDED FOR NAUSEA AND VOMITING glyBURIDE 5 Yes [id number] TAKE 1 [facility] mg tablet 6-15 TABLET BY ity o f 00:00: MOUTH [place] 00 TWICE Medical DAILY Branch (NEEDS FOLLOW UP VISIT FOR FURTHER REFILLS PROMETHAZIN 2022- Yes [id number] TAKE 2 [facility] E 12.5 mg 6-15 TABLETS BY ity of tablet 00:00: MOUTH [place] 00 EVERY 6 Medical HOURS Branch NEEDED FOR NAUSEA AND VOMITING glyBURIDE 5 Yes [id number] TAKE 1 [facility] mg tablet 6-15 TABLET BY ity o f 00:00: MOUTH [place] 00 TWICE Medical DAILY Branch (NEEDS FOLLOW UP VISIT FOR FURTHER REFILLS PROMETHAZIN Yes [id number] TAKE 2 [facility] E 12.5 mg 6-15 TABLETS BY ity of tablet 00:00: MOUTH [place] 00 EVERY 6 Medical HOURS Branch NEEDED FOR NAUSEA AND VOMITING glyBURIDE 5 Yes [id number] TAKE 1 [facility] mg tablet 6-15 TABLET BY ity o f 00:00: MOUTH [place] 00 TWICE Medical DAILY Branch (NEEDS FOLLOW UP VISIT FOR FURTHER REFILLS PROMETHAZIN Yes [id number] TAKE 2 [facility] E 12.5 mg 6-15 TABLETS BY ity of tablet 00:00: MOUTH [place] 00 EVERY 6 Medical HOURS Branch NEEDED FOR NAUSEA AND VOMITING glyBURIDE Yes [id number] TAKE 1 [facility] mg tablet 6-15 TABLET BY ity o f 00:00: MOUTH [place] 00 TWICE Medical DAILY Branch (NEEDS FOLLOW UP VISIT FOR FURTHER REFILLS PROMETHAZIN 2022- Yes [id number] TAKE 2 [facility] E 12.5 mg 6-15 TABLETS BY ity of tablet 00:00: MOUTH [place] 00 EVERY 6 Medical HOURS Branch NEEDED FOR NAUSEA AND VOMITING glyBURIDE 5 Yes [id number] TAKE 1 [facility] mg tablet 6-15 TABLET BY ity o f 00:00: MOUTH [place] 00 TWICE Medical DAILY Branch (NEEDS FOLLOW UP VISIT FOR FURTHER REFILLS PROMETHAZIN 2022- Yes [id number] TAKE 2 [facility] E 12.5 mg 6-15 TABLETS BY ity of tablet 00:00: MOUTH [place] 00 EVERY 6 Medical HOURS Branch NEEDED FOR NAUSEA AND VOMITING glyBURIDE 5 Yes [id number] TAKE 1 [facility] mg tablet 6-15 TABLET BY ity o f 00:00: MOUTH [place] 00 TWICE Medical DAILY Branch (NEEDS FOLLOW UP VISIT FOR FURTHER REFILLS PROMETHAZIN 2022-0 Yes [id number] TAKE 2 [facility] E 12.5 mg 6-15 TABLETS BY ity of tablet 00:00: MOUTH [place] 00 EVERY 6 Medical HOURS Branch NEEDED FOR NAUSEA AND VOMITING glyBURIDE 5 2022- Yes [id number] TAKE 1 [facility] mg tablet 6-15 TABLET BY ity o f 00:00: MOUTH [place] 00 TWICE Medical DAILY Branch (NEEDS FOLLOW UP VISIT FOR FURTHER REFILLS PROMETHAZIN 2022- Yes [id number] TAKE 2 [facility] E 12.5 mg 6-15 TABLETS BY ity of tablet 00:00: MOUTH [place] 00 EVERY 6 Medical HOURS Branch NEEDED FOR NAUSEA AND VOMITING glyBURIDE 5 2022- Yes [id number] TAKE 1 [facility] mg tablet 6-15 TABLET BY ity o f 00:00: MOUTH [place] 00 TWICE Medical DAILY Branch (NEEDS FOLLOW UP VISIT FOR FURTHER REFILLS PROMETHAZIN 2022- Yes [id number] TAKE 2 [facility] E 12.5 mg 6-15 TABLETS BY ity of tablet 00:00: MOUTH [place] 00 EVERY 6 Medical HOURS Branch NEEDED FOR NAUSEA AND VOMITING glyBURIDE 5 2022- Yes [id number] TAKE 1 [facility] mg tablet 6-15 TABLET BY ity o f 00:00: MOUTH [place] 00 TWICE Medical DAILY Branch (NEEDS FOLLOW UP VISIT FOR FURTHER REFILLS PROMETHAZIN 2022- Yes [id number] TAKE 2 [facility] E 12.5 mg 6-15 TABLETS BY ity of tablet 00:00: MOUTH [place] 00 EVERY 6 Medical HOURS Branch NEEDED FOR NAUSEA AND VOMITING glyBURIDE 5 2022- Yes [id number] TAKE 1 [facility] mg tablet 6-15 TABLET BY ity o f 00:00: MOUTH [place] 00 TWICE Medical DAILY Branch (NEEDS FOLLOW UP VISIT FOR FURTHER REFILLS PROMETHAZIN 2022- Yes [id number] TAKE 2 [facility] E 12.5 mg 6-15 TABLETS BY ity of tablet 00:00: MOUTH [place] 00 EVERY 6 Medical HOURS Branch NEEDED FOR NAUSEA AND VOMITING glyBURIDE 5 2022- Yes [id number] TAKE 1 [facility] mg tablet 6-15 TABLET BY ity o f 00:00: MOUTH [place] 00 TWICE Medical DAILY Branch (NEEDS FOLLOW UP VISIT FOR FURTHER REFILLS PROMETHAZIN 2022- Yes [id number] TAKE 2 [facility] E 12.5 mg 6-15 TABLETS BY ity of tablet 00:00: MOUTH [place] 00 EVERY 6 Medical HOURS Branch NEEDED FOR NAUSEA AND VOMITING glyBURIDE 5 2022- Yes [id number] TAKE 1 [facility] mg tablet 6-15 TABLET BY ity o f 00:00: MOUTH 00 TWICE Medical DAILY Branch (NEEDS FOLLOW UP VISIT FOR FURTHER REFILLS glyBURIDE 5 2022- Yes [id number] TAKE 1 [facility] mg tablet 6-15 TABLET BY ity o f 00:00: MOUTH 00 TWICE Medical DAILY Branch (NEEDS FOLLOW UP VISIT FOR FURTHER REFILLS glyBURIDE 5 2022- Yes [id number] TAKE 1 [facility] mg tablet 6-15 TABLET BY ity o f 00:00: MOUTH TWICE Medical DAILY Branch (NEEDS FOLLOW UP VISIT FOR FURTHER REFILLS glyBURIDE 5 Yes [id number] TAKE 1 [facility] mg tablet 6-15 TABLET BY ity o f 00:00: MOUTH TWICE Medical DAILY Branch (NEEDS FOLLOW UP VISIT FOR FURTHER REFILLS glyBURIDE 5 Yes [id number] TAKE 1 [facility] mg tablet 6-15 TABLET BY ity o f 00:00: MOUTH TWICE Medical DAILY Branch (NEEDS FOLLOW UP VISIT FOR FURTHER REFILLS glyBURIDE 5 2022- Yes [id number] TAKE 1 [facility] mg tablet 6-15 TABLET BY ity o f 00:00: MOUTH TWICE Medical DAILY Branch (NEEDS FOLLOW UP VISIT FOR FURTHER REFILLS glyBURIDE 5 Yes [id number] TAKE 1 [facility] mg tablet 6-15 TABLET BY ity o f 00:00: MOUTH [place] 00 TWICE Medical DAILY Branch (NEEDS FOLLOW UP VISIT FOR FURTHER REFILLS glyBURIDE 5 2022- Yes [id number] TAKE 1 [facility] mg tablet 6-15 TABLET BY ity o f 00:00: MOUTH [place] 00 TWICE Medical DAILY Branch (NEEDS FOLLOW UP VISIT FOR FURTHER REFILLS glyBURIDE 5 2022- Yes [id number] TAKE 1 [facility] mg tablet 6-15 TABLET BY ity o f 00:00: MOUTH TWICE Medical DAILY Branch (NEEDS FOLLOW UP VISIT FOR FURTHER REFILLS glyBURIDE 5 2022- Yes [id number] TAKE 1 [facility] mg tablet 6-15 TABLET BY ity o f 00:00: MOUTH [place] 00 TWICE Medical DAILY Branch (NEEDS FOLLOW UP VISIT FOR FURTHER REFILLS glyBURIDE 5 2022- Yes [id number] TAKE 1 [facility] mg tablet 6-15 TABLET BY ity o f 00:00: MOUTH TWICE Medical DAILY Branch (NEEDS FOLLOW UP VISIT FOR FURTHER REFILLS glyBURIDE 5 2022- Yes [id number] TAKE 1 [facility] mg tablet 6-15 TABLET BY ity o f 00:00: MOUTH TWICE Medical DAILY Branch (NEEDS FOLLOW UP VISIT FOR FURTHER REFILLS glyBURIDE 5 Yes [id number] TAKE 1 [facility] mg tablet 6-15 TABLET BY ity o f 00:00: MOUTH TWICE Medical DAILY Branch (NEEDS FOLLOW UP VISIT FOR FURTHER REFILLS glyBURIDE 5 2022- Yes [id number] TAKE 1 [facility] mg tablet 6-15 TABLET BY ity o f 00:00: MOUTH TWICE Medical DAILY Branch (NEEDS FOLLOW UP VISIT FOR FURTHER REFILLS glyBURIDE 5 Yes [id number] TAKE 1 [facility] mg tablet 6-15 TABLET BY ity o f 00:00: MOUTH TWICE Medical DAILY Branch (NEEDS FOLLOW UP VISIT FOR FURTHER REFILLS glyBURIDE 5 2022- Yes [id number] TAKE 1 [facility] mg tablet 6-15 TABLET BY ity o f 00:00: MOUTH TWICE Medical DAILY Branch (NEEDS FOLLOW UP VISIT FOR FURTHER REFILLS glyBURIDE 5 2022- Yes [id number] TAKE 1 [facility] mg tablet 6-15 TABLET BY ity o f 00:00: MOUTH [place] TWICE Medical DAILY Branch (NEEDS FOLLOW UP VISIT FOR FURTHER REFILLS glyBURIDE 5 Yes [id number] TAKE 1 [facility] mg tablet 6-15 TABLET BY ity o f 00:00: MOUTH TWICE Medical DAILY Branch (NEEDS FOLLOW UP VISIT FOR FURTHER REFILLS glyBURIDE 5 2022- Yes [id number] TAKE 1 [facility] mg tablet 6-15 TABLET BY ity o f 00:00: MOUTH TWICE Medical DAILY Branch (NEEDS FOLLOW UP VISIT FOR FURTHER REFILLS glyBURIDE 5 2022-0 Yes [id number] TAKE 1 [facility] mg tablet 6-15 TABLET BY ity o f 00:00: MOUTH TWICE Medical DAILY Branch (NEEDS FOLLOW UP VISIT FOR FURTHER REFILLS glyBURIDE 5 2022-0 Yes [id number] TAKE 1 [facility] mg tablet 6-15 TABLET BY ity o f 00:00: MOUTH TWICE Medical DAILY Branch (NEEDS FOLLOW UP VISIT FOR FURTHER REFILLS glyBURIDE 5 2022-0 Yes [id number] TAKE 1 [facility] mg tablet 6-15 TABLET BY ity o f 00:00: MOUTH TWICE Medical DAILY Branch (NEEDS FOLLOW UP VISIT FOR FURTHER REFILLS glyBURIDE 5 2022-0 Yes [id number] TAKE 1 [facility] mg tablet 6-15 TABLET BY ity o f 00:00: MOUTH TWICE Medical DAILY Branch (NEEDS FOLLOW UP VISIT FOR FURTHER REFILLS glyBURIDE 5 2022-0 Yes [id number] TAKE 1 [facility] mg tablet 6-15 TABLET BY ity o f 00:00: MOUTH TWICE Medical DAILY Branch (NEEDS FOLLOW UP VISIT FOR FURTHER REFILLS glyBURIDE 5 2022-0 Yes [id number] TAKE 1 [facility] mg tablet 6-15 TABLET BY ity o f 00:00: MOUTH TWICE Medical DAILY Branch (NEEDS FOLLOW UP VISIT FOR FURTHER REFILLS glyBURIDE 5 2022-0 Yes [id number] TAKE 1 [facility] mg tablet 6-15 TABLET BY ity o f 00:00: MOUTH TWICE Medical DAILY Branch (NEEDS FOLLOW UP VISIT FOR FURTHER REFILLS glyBURIDE 5 2022-0 Yes [id number] TAKE 1 [facility] mg tablet 6-15 TABLET BY ity o f 00:00: MOUTH TWICE Medical DAILY Branch (NEEDS FOLLOW UP VISIT FOR FURTHER REFILLS glyBURIDE 5 2022-0 Yes [id number] TAKE 1 [facility] mg tablet 6-15 TABLET BY ity o f 00:00: MOUTH TWICE Medical DAILY Branch (NEEDS FOLLOW UP VISIT FOR FURTHER REFILLS glyBURIDE 5 2022-0 Yes [id number] TAKE 1 [facility] mg tablet 6-15 TABLET BY ity o f 00:00: MOUTH [place] 00 TWICE Medical DAILY Branch (NEEDS FOLLOW UP VISIT FOR FURTHER REFILLS glyBURIDE 5 2022-0 Yes [id number] TAKE 1 [facility] mg tablet 6-15 TABLET BY ity o f 00:00: MOUTH [place] 00 TWICE Medical DAILY Branch (NEEDS FOLLOW UP VISIT FOR FURTHER REFILLS glyBURIDE 5 2022- No [id number] TAKE 1 [facility] mg tablet 6-15 09-25 TABLET BY ity of 00:00: 00:00 MOUTH [place] 00 :00 TWICE Medical DAILY Branch (NEEDS FOLLOW UP VISIT FOR FURTHER REFILLS PROMETHAZIN 2022- No [id number] TAKE 2 [facility] E 12.5 mg 6-15 07-25 TABLETS BY ity of tablet 00:00: 00:00 MOUTH [place] 00 :00 EVERY 6 Medical HOURS Branch NEEDED FOR NAUSEA AND VOMITING PROMETHAZIN 2022- No [id number] TAKE 2 [facility] E 12.5 mg 6-15 07-25 TABLETS BY ity of tablet 00:00: 00:00 MOUTH [place] 00 :00 EVERY 6 Medical HOURS Branch NEEDED FOR NAUSEA AND VOMITING PROMETHAZIN 2022- No [id number] TAKE 2 [facility] E 12.5 mg 6-15 07-25 TABLETS BY ity of tablet 00:00: 00:00 MOUTH [place] 00 :00 EVERY 6 Medical HOURS Branch NEEDED FOR NAUSEA AND VOMITING PROMETHAZIN 2022- No [id number] TAKE 2 [facility] E 12.5 mg 6-15 07-25 TABLETS BY ity of tablet 00:00: 00:00 MOUTH [place] 00 :00 EVERY 6 Medical HOURS Branch NEEDED FOR NAUSEA AND VOMITING lidocaine Yes [id number] 1{each} Apply 1 [facility] HCL 6-09 Each to ity of (ASPERCREME 00:00: area(s) in [place] , LIDOCAINE 00 the Medical HCL,) 4 % morning Branch Crea and 1 Each in the evening. lidocaine Yes [id number] 1{each} Apply 1 [facility] HCL 6-09 Each to ity of (ASPERCREME 00:00: area(s) in [place] , LIDOCAINE 00 the Medical HCL,) 4 % morning Branch Crea and 1 Each in the evening. lidocaine Yes [id number] 1{each} Apply 1 [facility] HCL 6-09 Each to ity of (ASPERCREME 00:00: area(s) in [place] , LIDOCAINE 00 the Medical HCL,) 4 % morning Branch Crea and 1 Each in the evening. lidocaine Yes [id number] 1{each} Apply 1 [facility] HCL 6-09 Each to ity of (ASPERCREME 00:00: area(s) in [place] , LIDOCAINE 00 the Medical HCL,) 4 % morning Branch Crea and 1 Each in the evening. lidocaine Yes [id number] 1{each} Apply 1 [facility] HCL 6-09 Each to ity of (ASPERCREME 00:00: area(s) in [place] , LIDOCAINE 00 the Medical HCL,) 4 % morning Branch Crea and 1 Each in the evening. lidocaine Yes [id number] 1{each} Apply 1 [facility] HCL 6-09 Each to ity of (ASPERCREME 00:00: area(s) in [place] , LIDOCAINE 00 the Medical HCL,) 4 % morning Branch Crea and 1 Each in the evening. lidocaine Yes [id number] 1{each} Apply 1 [facility] HCL 6-09 Each to ity of (ASPERCREME 00:00: area(s) in [place] , LIDOCAINE 00 the Medical HCL,) 4 % morning Branch Crea and 1 Each in the evening. lidocaine Yes [id number] 1{each} Apply 1 [facility] HCL 6-09 Each to ity of (ASPERCREME 00:00: area(s) in [place] , LIDOCAINE 00 the Medical HCL,) 4 % morning Branch Crea and 1 Each in the evening. lidocaine Yes [id number] 1{each} Apply 1 [facility] HCL 6-09 Each to ity of (ASPERCREME 00:00: area(s) in [place] , LIDOCAINE 00 the Medical HCL,) 4 % morning Branch Crea and 1 Each in the evening. lidocaine Yes [id number] 1{each} Apply 1 [facility] HCL 6-09 Each to ity of (ASPERCREME 00:00: area(s) in [place] , LIDOCAINE 00 the Medical HCL,) 4 % morning Branch Crea and 1 Each in the evening. lidocaine Yes [id number] 1{each} Apply 1 [facility] HCL 6-09 Each to ity of (ASPERCREME 00:00: area(s) in [place] , LIDOCAINE 00 the Medical HCL,) 4 % morning Branch Crea and 1 Each in the evening. lidocaine Yes [id number] 1{each} Apply 1 [facility] HCL 6-09 Each to ity of (ASPERCREME 00:00: area(s) in [place] , LIDOCAINE 00 the Medical HCL,) 4 % morning Branch Crea and 1 Each in the evening. lidocaine 0 Yes [id number] 1{each} Apply 1 [facility] HCL 6-09 Each to ity of (ASPERCREME 00:00: area(s) in [place] , LIDOCAINE 00 the Medical HCL,) 4 % morning Branch Crea and 1 Each in the evening. lidocaine 0 Yes [id number] 1{each} Apply 1 [facility] HCL 6-09 Each to ity of (ASPERCREME 00:00: area(s) in [place] , LIDOCAINE 00 the Medical HCL,) 4 % morning Branch Crea and 1 Each in the evening. lidocaine 2022-0 Yes [id number] 1{each} Apply 1 [facility] HCL 6-09 Each to ity of (ASPERCREME 00:00: area(s) in [place] , LIDOCAINE 00 the Medical HCL,) 4 % morning Branch Crea and 1 Each in the evening. lidocaine 0 Yes [id number] 1{each} Apply 1 [facility] HCL 6-09 Each to ity of (ASPERCREME 00:00: area(s) in [place] , LIDOCAINE 00 the Medical HCL,) 4 % morning Branch Crea and 1 Each in the evening. lidocaine 0 Yes [id number] 1{each} Apply 1 [facility] HCL 6-09 Each to ity of (ASPERCREME 00:00: area(s) in [place] , LIDOCAINE 00 the Medical HCL,) 4 % morning Branch Crea and 1 Each in the evening. lidocaine 0 Yes [id number] 1{each} Apply 1 [facility] HCL 6-09 Each to ity of (ASPERCREME 00:00: area(s) in [place] , LIDOCAINE 00 the Medical HCL,) 4 % morning Branch Crea and 1 Each in the evening. lidocaine 2022-0 Yes [id number] 1{each} Apply 1 [facility] HCL 6-09 Each to ity of (ASPERCREME 00:00: area(s) in [place] , LIDOCAINE 00 the Medical HCL,) 4 % morning Branch Crea and 1 Each in the evening. lidocaine 2022-0 Yes [id number] 1{each} Apply 1 [facility] HCL 6-09 Each to ity of (ASPERCREME 00:00: area(s) in [place] , LIDOCAINE 00 the Medical HCL,) 4 % morning Branch Crea and 1 Each in the evening. lidocaine 2022-0 Yes [id number] 1{each} Apply 1 [facility] HCL 6-09 Each to ity of (ASPERCREME 00:00: area(s) in [place] , LIDOCAINE 00 the Medical HCL,) 4 % morning Branch Crea and 1 Each in the evening. lidocaine 2022-0 Yes [id number] 1{each} Apply 1 [facility] HCL 6-09 Each to ity of (ASPERCREME 00:00: area(s) in [place] , LIDOCAINE 00 the Medical HCL,) 4 % morning Branch Crea and 1 Each in the evening. lidocaine 2022-0 Yes [id number] 1{each} Apply 1 [facility] HCL 6-09 Each to ity of (ASPERCREME 00:00: area(s) in [place] , LIDOCAINE 00 the Medical HCL,) 4 % morning Branch Crea and 1 Each in the evening. lidocaine 2022-0 Yes [id number] 1{each} Apply 1 [facility] HCL 6-09 Each to ity of (ASPERCREME 00:00: area(s) in [place] , LIDOCAINE 00 the Medical HCL,) 4 % morning Branch Crea and 1 Each in the evening. lidocaine 2022-0 Yes [id number] 1{each} Apply 1 [facility] HCL 6-09 Each to ity of (ASPERCREME 00:00: area(s) in [place] , LIDOCAINE 00 the Medical HCL,) 4 % morning Branch Crea and 1 Each in the evening. lidocaine 2022-0 Yes [id number] 1{each} Apply 1 [facility] HCL 6-09 Each to ity of (ASPERCREME 00:00: area(s) in [place] , LIDOCAINE 00 the Medical HCL,) 4 % morning Branch Crea and 1 Each in the evening. lidocaine 2022-0 Yes [id number] 1{each} Apply 1 [facility] HCL 6-09 Each to ity of (ASPERCREME 00:00: area(s) in [place] , LIDOCAINE 00 the Medical HCL,) 4 % morning Branch Crea and 1 Each in the evening. lidocaine 2022-0 Yes [id number] 1{each} Apply 1 [facility] HCL 6-09 Each to ity of (ASPERCREME 00:00: area(s) in [place] , LIDOCAINE 00 the Medical HCL,) 4 % morning Branch Crea and 1 Each in the evening. lidocaine 2023-0 Yes [id number] 1{each} Apply 1 [facility] HCL 6-09 Each to ity of (ASPERCREME 00:00: area(s) in [place] , LIDOCAINE 00 the Medical HCL,) 4 % morning Branch Crea and 1 Each in the evening. lidocaine Yes [id number] 1{each} Apply 1 [facility] HCL 6-09 Each to ity of (ASPERCREME 00:00: area(s) in [place] , LIDOCAINE 00 the Medical HCL,) 4 % morning Branch Crea and 1 Each in the evening. lidocaine Yes [id number] 1{each} Apply 1 [facility] HCL 6-09 Each to ity of (ASPERCREME 00:00: area(s) in [place] , LIDOCAINE 00 the Medical HCL,) 4 % morning Branch Crea and 1 Each in the evening. lidocaine Yes [id number] 1{each} Apply 1 [facility] HCL 6-09 Each to ity of (ASPERCREME 00:00: area(s) in [place] , LIDOCAINE 00 the Medical HCL,) 4 % morning Branch Crea and 1 Each in the evening. lidocaine Yes [id number] 1{each} Apply 1 [facility] HCL 6-09 Each to ity of (ASPERCREME 00:00: area(s) in [place] , LIDOCAINE 00 the Medical HCL,) 4 % morning Branch Crea and 1 Each in the evening. lidocaine Yes [id number] 1{each} Apply 1 [facility] HCL 6-09 Each to ity of (ASPERCREME 00:00: area(s) in [place] , LIDOCAINE 00 the Medical HCL,) 4 % morning Branch Crea and 1 Each in the evening. lidocaine Yes [id number] 1{each} Apply 1 [facility] HCL 6-09 Each to ity of (ASPERCREME 00:00: area(s) in [place] , LIDOCAINE 00 the Medical HCL,) 4 % morning Branch Crea and 1 Each in the evening. lidocaine Yes [id number] 1{each} Apply 1 [facility] HCL 6-09 Each to ity of (ASPERCREME 00:00: area(s) in [place] , LIDOCAINE 00 the Medical HCL,) 4 % morning Branch Crea and 1 Each in the evening. lidocaine Yes [id number] 1{each} Apply 1 [facility] HCL 6-09 Each to ity of (ASPERCREME 00:00: area(s) in [place] , LIDOCAINE 00 the Medical HCL,) 4 % morning Branch Crea and 1 Each in the evening. lidocaine 0 Yes [id number] 1{each} Apply 1 [facility] HCL 6-09 Each to ity of (ASPERCREME 00:00: area(s) in [place] , LIDOCAINE 00 the Medical HCL,) 4 % morning Branch Crea and 1 Each in the evening. lidocaine 0 Yes [id number] 1{each} Apply 1 [facility] HCL 6-09 Each to ity of (ASPERCREME 00:00: area(s) in [place] , LIDOCAINE 00 the Medical HCL,) 4 % morning Branch Crea and 1 Each in the evening. lidocaine 2022-0 Yes [id number] 1{each} Apply 1 [facility]-09 Each to ity of (ASPERCREME 00:00: area(s) in [place] , LIDOCAINE 00 the Medical HCL,) 4 % morning Branch Crea and 1 Each in the evening. lidocaine 0 Yes [id number] 1{each} Apply 1 [facility] H[facility] 6-09 Each to ity of (ASPERCREME 00:00: area(s) in [place] , LIDOCAINE 00 the Medical HCL,) 4 % morning Branch Crea and 1 Each in the evening. lidocaine 0 Yes [id number] 1{each} Apply 1 [facility] H[facility] 6-09 Each to ity of (ASPERCREME 00:00: area(s) in [place] , LIDOCAINE 00 the Medical HCL,) 4 % morning Branch Crea and 1 Each in the evening. lidocaine 0 Yes [id number] 1{each} Apply 1 [facility] H[facility] 6-09 Each to ity of (ASPERCREME 00:00: area(s) in [place] , LIDOCAINE 00 the Medical HCL,) 4 % morning Branch Crea and 1 Each in the evening. lidocaine 2022-0 Yes [id number] 1{each} Apply 1 [facility] H[facility] 6-09 Each to ity of (ASPERCREME 00:00: area(s) in [place] , LIDOCAINE 00 the Medical HCL,) 4 % morning Branch Crea and 1 Each in the evening. lidocaine 2022-0 Yes [id number] 1{each} Apply 1 [facility] 6-09 Each to ity of (ASPERCREME 00:00: area(s) in [place] , LIDOCAINE 00 the Medical HCL,) 4 % morning Branch Crea and 1 Each in the evening. lidocaine 2022-0 Yes [id number] 1{each} Apply 1 [facility] 6-09 Each to ity of (ASPERCREME 00:00: area(s) in [place] , LIDOCAINE 00 the Medical HCL,) 4 % morning Branch Crea and 1 Each in the evening. lidocaine 2022-0 Yes [id number] 1{each} Apply 1 [facility] 6-09 Each to ity of (ASPERCREME 00:00: area(s) in [place] , LIDOCAINE 00 the Medical HCL,) 4 % morning Branch Crea and 1 Each in the evening. lidocaine 2022-0 Yes [id number] 1{each} Apply 1 [facility] 6-09 Each to ity of (ASPERCREME 00:00: area(s) in [place] , LIDOCAINE 00 the Medical HCL,) 4 % morning Branch Crea and 1 Each in the evening. lidocaine 2022-0 Yes [id number] 1{each} Apply 1 [facility] 6-09 Each to ity of (ASPERCREME 00:00: area(s) in [place] , LIDOCAINE 00 the Medical HCL,) 4 % morning Branch Crea and 1 Each in the evening. lidocaine 2022-0 Yes [id number] 1{each} Apply 1 [facility] 6-09 Each to ity of (ASPERCREME 00:00: area(s) in [place] , LIDOCAINE 00 the Medical HCL,) 4 % morning Branch Crea and 1 Each in the evening. lidocaine 2022-0 Yes [id number] 1{each} Apply 1 [facility] 6-09 Each to ity of (ASPERCREME 00:00: area(s) in [place] , LIDOCAINE 00 the Medical HCL,) 4 % morning Branch Crea and 1 Each in the evening. lidocaine 2022-0 Yes [id number] 1{each} Apply 1 [facility] 6-09 Each to ity of (ASPERCREME 00:00: area(s) in [place] , LIDOCAINE 00 the Medical HCL,) 4 % morning Branch Crea and 1 Each in the evening. lidocaine 2022-0 Yes [id number] 1{each} Apply 1 [facility] 6-09 Each to ity of (ASPERCREME 00:00: area(s) in [place] , LIDOCAINE 00 the Medical HCL,) 4 % morning Branch Crea and 1 Each in the evening. lidocaine 2023-0 Yes [id number] 1{each} Apply 1 [facility] 6-09 Each to ity of (ASPERCREME 00:00: area(s) in [place] , LIDOCAINE 00 the Medical HCL,) 4 % morning Branch Crea and 1 Each in the evening. lidocaine Yes [id number] 1{each} Apply 1 [facility] 6-09 Each to ity of (ASPERCREME 00:00: area(s) in [place] , LIDOCAINE 00 the Medical HCL,) 4 % morning Branch Crea and 1 Each in the evening. lidocaine Yes [id number] 1{each} Apply 1 [facility] 6-09 Each to ity of (ASPERCREME 00:00: area(s) in [place] , LIDOCAINE 00 the Medical HCL,) 4 % morning Branch Crea and 1 Each in the evening. lidocaine Yes [id number] 1{each} Apply 1 [facility] 6-09 Each to ity of (ASPERCREME 00:00: area(s) in [place] , LIDOCAINE 00 the Medical HCL,) 4 % morning Branch Crea and 1 Each in the evening. lidocaine Yes [id number] 1{each} Apply 1 [facility] 6-09 Each to ity of (ASPERCREME 00:00: area(s) in [place] , LIDOCAINE 00 the Medical HCL,) 4 % morning Branch Crea and 1 Each in the evening. lidocaine Yes [id number] 1{each} Apply 1 [facility] 6-09 Each to ity of (ASPERCREME 00:00: area(s) in [place] , LIDOCAINE 00 the Medical HCL,) 4 % morning Branch Crea and 1 Each in the evening. lidocaine Yes [id number] 1{each} Apply 1 [facility] 6-09 Each to ity of (ASPERCREME 00:00: area(s) in [place] , LIDOCAINE 00 the Medical HCL,) 4 % morning Branch Crea and 1 Each in the evening. lidocaine Yes [id number] 1{each} Apply 1 [facility] 6-09 Each to ity of (ASPERCREME 00:00: area(s) in [place] , LIDOCAINE 00 the Medical HCL,) 4 % morning Branch Crea and 1 Each in the evening. lidocaine Yes [id number] 1{each} Apply 1 [facility] 6-09 Each to ity of (ASPERCREME 00:00: area(s) in [place] , LIDOCAINE 00 the Medical HCL,) 4 % morning Branch Crea and 1 Each in the evening. lidocaine 2022-0 Yes [id number] 1{each} Apply 1 [facility] 6-09 Each to ity of (ASPERCREME 00:00: area(s) in [place] , LIDOCAINE 00 the Medical HCL,) 4 % morning Branch Crea and 1 Each in the evening. lidocaine 2022-0 Yes [id number] 1{each} Apply 1 [facility] 6-09 Each to ity of (ASPERCREME 00:00: area(s) in [place] , LIDOCAINE 00 the Medical HCL,) 4 % morning Branch Crea and 1 Each in the evening. lidocaine 2022-0 Yes [id number] 1{each} Apply 1 [facility] 6-09 Each to ity of (ASPERCREME 00:00: area(s) in [place] , LIDOCAINE 00 the Medical HCL,) 4 % morning Branch Crea and 1 Each in the evening. lidocaine 2022-0 Yes [id number] 1{each} Apply 1 [facility] 6-09 Each to ity of (ASPERCREME 00:00: area(s) in [place] , LIDOCAINE 00 the Medical HCL,) 4 % morning Branch Crea and 1 Each in the evening. lidocaine 2022-0 Yes [id number] 1{each} Apply 1 [facility] 6-09 Each to ity of (ASPERCREME 00:00: area(s) in [place] , LIDOCAINE 00 the Medical HCL,) 4 % morning Branch Crea and 1 Each in the evening. lidocaine 2022-0 Yes [id number] 1{each} Apply 1 [facility] 6-09 Each to ity of (ASPERCREME 00:00: area(s) in [place] , LIDOCAINE 00 the Medical HCL,) 4 % morning Branch Crea and 1 Each in the evening. lidocaine 2022-0 Yes [id number] 1{each} Apply 1 [facility] 6-09 Each to ity of (ASPERCREME 00:00: area(s) in [place] , LIDOCAINE 00 the Medical HCL,) 4 % morning Branch Crea and 1 Each in the evening. pantoprazol 2022-0 Yes [id number] 40mg Take 1 [facility] e 40 mg EC 5-22 tablet by ity of tablet 00:00: mouth in [place] 00 the Medical morning. Branch pantoprazol 2023-0 Yes [id number] 40mg Take 1 [facility] e 40 mg EC 5-22 tablet by ity of tablet 00:00: mouth in [place] 00 the Medical morning. Branch pantoprazol 3-0 Yes [id number] 40mg Take 1 [facility] e 40 mg EC 5-22 tablet by ity of tablet 00:00: mouth in [place] 00 the Medical morning. Branch pantoprazol 2023-0 Yes [id number] 40mg Take 1 [facility] e 40 mg EC 5-22 tablet by ity of tablet 00:00: mouth in [place] 00 the Medical morning. Branch pantoprazol 3-0 Yes [id number] 40mg Take 1 [facility] e 40 mg EC 5-22 tablet by ity of tablet 00:00: mouth in [place] 00 the Medical morning. Branch pantoprazol 3-0 Yes [id number] 40mg Take 1 [facility] e 40 mg EC 5-22 tablet by ity of tablet 00:00: mouth in [place] 00 the Medical morning. Branch pantoprazol 3-0 Yes [id number] 40mg Take 1 [facility] e 40 mg EC 5-22 tablet by ity of tablet 00:00: mouth in [place] 00 the Medical morning. Branch pantoprazol 3-0 Yes [id number] 40mg Take 1 [facility] e 40 mg EC 5-22 tablet by ity of tablet 00:00: mouth in [place] 00 the Medical morning. Branch pantoprazol 3-0 Yes [id number] 40mg Take 1 [facility] e 40 mg EC 5-22 tablet by ity of tablet 00:00: mouth in [place] 00 the Medical morning. Branch pantoprazol 3-0 Yes [id number] 40mg Take 1 [facility] e 40 mg EC 5-22 tablet by ity of tablet 00:00: mouth in [place] 00 the Medical morning. Branch pantoprazol 2023-0 Yes [id number] 40mg Take 1 [facility] e 40 mg EC 5-22 tablet by ity of tablet 00:00: mouth in [place] 00 the Medical morning. Branch pantoprazol 2023-0 Yes [id number] 40mg Take 1 [facility] e 40 mg EC 5-22 tablet by ity of tablet 00:00: mouth in [place] 00 the Medical morning. Branch pantoprazol 2023-0 Yes [id number] 40mg Take 1 [facility] e 40 mg EC 5-22 tablet by ity of tablet 00:00: mouth in [place] 00 the Medical morning. Branch pantoprazol 2023-0 Yes [id number] 40mg Take 1 [facility] e 40 mg EC 5-22 tablet by ity of tablet 00:00: mouth in [place] 00 the Medical morning. Branch pantoprazol 3-0 Yes [id number] 40mg Take 1 [facility] e 40 mg EC 5-22 tablet by ity of tablet 00:00: mouth in [place] 00 the Medical morning. Branch pantoprazol 2023-0 Yes [id number] 40mg Take 1 [facility] e 40 mg EC 5-22 tablet by ity of tablet 00:00: mouth in [place] 00 the Medical morning. Branch pantoprazol 3-0 Yes [id number] 40mg Take 1 [facility] e 40 mg EC 5-22 tablet by ity of tablet 00:00: mouth in [place] 00 the Medical morning. Branch pantoprazol 3-0 Yes [id number] 40mg Take 1 [facility] e 40 mg EC 5-22 tablet by ity of tablet 00:00: mouth in [place] the Medical morning. Branch pantoprazol 3-0 Yes [id number] 40mg Take 1 [facility] e 40 mg EC 5-22 tablet by ity of tablet 00:00: mouth in [place] the Medical morning. Branch pantoprazol 3-0 Yes [id number] 40mg Take 1 [facility] e 40 mg EC 5-22 tablet by ity of tablet 00:00: mouth in [place] the Medical morning. Branch pantoprazol 3-0 Yes [id number] 40mg Take 1 [facility] e 40 mg EC 5-22 tablet by ity of tablet 00:00: mouth in [place] 00 the Medical morning. Branch pantoprazol 3-0 Yes [id number] 40mg Take 1 [facility] e 40 mg EC 5-22 tablet by ity of tablet 00:00: mouth in [place] 00 the Medical morning. Branch pantoprazol 2023-0 Yes [id number] 40mg Take 1 [facility] e 40 mg EC 5-22 tablet by ity of tablet 00:00: mouth in [place] 00 the Medical morning. Branch pantoprazol 2023-0 Yes [id number] 40mg Take 1 [facility] e 40 mg EC 5-22 tablet by ity of tablet 00:00: mouth in [place] 00 the Medical morning. Branch pantoprazol 2023-0 Yes [id number] 40mg Take 1 [facility] e 40 mg EC 5-22 tablet by ity of tablet 00:00: mouth in [place] 00 the Medical morning. Branch pantoprazol 2023-0 Yes [id number] 40mg Take 1 [facility] e 40 mg EC 5-22 tablet by ity of tablet 00:00: mouth in [place] 00 the Medical morning. Branch pantoprazol 2023-0 Yes [id number] 40mg Take 1 [facility] e 40 mg EC 5-22 tablet by ity of tablet 00:00: mouth in [place] 00 the Medical morning. Branch pantoprazol 2023-0 Yes [id number] 40mg Take 1 [facility] e 40 mg EC 5-22 tablet by ity of tablet 00:00: mouth in [place] 00 the Medical morning. Branch pantoprazol 2023-0 Yes [id number] 40mg Take 1 [facility] e 40 mg EC 5-22 tablet by ity of tablet 00:00: mouth in [place] 00 the Medical morning. Branch pantoprazol 2023-0 Yes [id number] 40mg Take 1 [facility] e 40 mg EC 5-22 tablet by ity of tablet 00:00: mouth in [place] the Medical morning. Branch pantoprazol 3-0 Yes [id number] 40mg Take 1 [facility] e 40 mg EC 5-22 tablet by ity of tablet 00:00: mouth in [place] the Medical morning. Branch pantoprazol 3-0 Yes [id number] 40mg Take 1 [facility] e 40 mg EC 5-22 tablet by ity of tablet 00:00: mouth in [place] the Medical morning. Branch pantoprazol 3-0 Yes [id number] 40mg Take 1 [facility] e 40 mg EC 5-22 tablet by ity of tablet 00:00: mouth in [place] 00 the Medical morning. Branch pantoprazol 2023-0 Yes [id number] 40mg Take 1 [facility] e 40 mg EC 5-22 tablet by ity of tablet 00:00: mouth in [place] 00 the Medical morning. Branch pantoprazol 2023-0 Yes [id number] 40mg Take 1 [facility] e 40 mg EC 5-22 tablet by ity of tablet 00:00: mouth in [place] 00 the Medical morning. Branch pantoprazol 2023-0 Yes [id number] 40mg Take 1 [facility] e 40 mg EC 5-22 tablet by ity of tablet 00:00: mouth in [place] 00 the Medical morning. Branch pantoprazol 2023-0 Yes [id number] 40mg Take 1 [facility] e 40 mg EC 5-22 tablet by ity of tablet 00:00: mouth in [place] 00 the Medical morning. Branch pantoprazol 3-0 Yes [id number] 40mg Take 1 [facility] e 40 mg EC 5-22 tablet by ity of tablet 00:00: mouth in [place] 00 the Medical morning. Branch pantoprazol 2023-0 Yes [id number] 40mg Take 1 [facility] e 40 mg EC 5-22 tablet by ity of tablet 00:00: mouth in [place] 00 the Medical morning. Branch pantoprazol 2023-0 Yes [id number] 40mg Take 1 [facility] e 40 mg EC 5-22 tablet by ity of tablet 00:00: mouth in [place] 00 the Medical morning. Branch pantoprazol 3-0 Yes [id number] 40mg Take 1 [facility] e 40 mg EC 5-22 tablet by ity of tablet 00:00: mouth in [place] 00 the Medical morning. Branch pantoprazol 3-0 Yes [id number] 40mg Take 1 [facility] e 40 mg EC 5-22 tablet by ity of tablet 00:00: mouth in [place] the Medical morning. Branch pantoprazol 3-0 Yes [id number] 40mg Take 1 [facility] e 40 mg EC 5-22 tablet by ity of tablet 00:00: mouth in [place] the Medical morning. Branch pantoprazol 3-0 Yes [id number] 40mg Take 1 [facility] e 40 mg EC 5-22 tablet by ity of tablet 00:00: mouth in [place] 00 the Medical morning. Branch pantoprazol 3-0 Yes [id number] 40mg Take 1 [facility] e 40 mg EC 5-22 tablet by ity of tablet 00:00: mouth in [place] 00 the Medical morning. Branch pantoprazol 2023-0 Yes [id number] 40mg Take 1 [facility] e 40 mg EC 5-22 tablet by ity of tablet 00:00: mouth in [place] 00 the Medical morning. Branch pantoprazol 2023-0 Yes [id number] 40mg Take 1 [facility] e 40 mg EC 5-22 tablet by ity of tablet 00:00: mouth in [place] 00 the Medical morning. Branch pantoprazol 2023-0 Yes [id number] 40mg Take 1 [facility] e 40 mg EC 5-22 tablet by ity of tablet 00:00: mouth in [place] 00 the Medical morning. Branch pantoprazol 3-0 Yes [id number] 40mg Take 1 [facility] e 40 mg EC 5-22 tablet by ity of tablet 00:00: mouth in [place] 00 the Medical morning. Branch pantoprazol 3-0 Yes [id number] 40mg Take 1 [facility] e 40 mg EC 5-22 tablet by ity of tablet 00:00: mouth in [place] 00 the Medical morning. Branch pantoprazol 3-0 Yes [id number] 40mg Take 1 [facility] e 40 mg EC 5-22 tablet by ity of tablet 00:00: mouth in [place] 00 the Medical morning. Branch pantoprazol 3-0 Yes [id number] 40mg Take 1 [facility] e 40 mg EC 5-22 tablet by ity of tablet 00:00: mouth in [place] the Medical morning. Branch pantoprazol 3-0 Yes [id number] 40mg Take 1 [facility] e 40 mg EC 5-22 tablet by ity of tablet 00:00: mouth in [place] the Medical morning. Branch pantoprazol 3-0 Yes [id number] 40mg Take 1 [facility] e 40 mg EC 5-22 tablet by ity of tablet 00:00: mouth in [place] the Medical morning. Branch pantoprazol 3-0 Yes [id number] 40mg Take 1 [facility] e 40 mg EC 5-22 tablet by ity of tablet 00:00: mouth in [place] the Medical morning. Branch pantoprazol 3-0 Yes [id number] 40mg Take 1 [facility] e 40 mg EC 5-22 tablet by ity of tablet 00:00: mouth in [place] the Medical morning. Branch pantoprazol 3-0 Yes [id number] 40mg Take 1 [facility] e 40 mg EC 5-22 tablet by ity of tablet 00:00: mouth in [place] 00 the Medical morning. Branch pantoprazol 2023-0 Yes [id number] 40mg Take 1 [facility] e 40 mg EC 5-22 tablet by ity of tablet 00:00: mouth in [place] 00 the Medical morning. Branch pantoprazol 2023-0 Yes [id number] 40mg Take 1 [facility] e 40 mg EC 5-22 tablet by ity of tablet 00:00: mouth in [place] 00 the Medical morning. Branch pantoprazol 2023-0 Yes [id number] 40mg Take 1 [facility] e 40 mg EC 5-22 tablet by ity of tablet 00:00: mouth in [place] 00 the Medical morning. Branch pantoprazol 3-0 Yes [id number] 40mg Take 1 [facility] e 40 mg EC 5-22 tablet by ity of tablet 00:00: mouth in [place] 00 the Medical morning. Branch pantoprazol 2023-0 Yes [id number] 40mg Take 1 [facility] e 40 mg EC 5-22 tablet by ity of tablet 00:00: mouth in [place] 00 the Medical morning. Branch pantoprazol 3-0 Yes [id number] 40mg Take 1 [facility] e 40 mg EC 5-22 tablet by ity of tablet 00:00: mouth in [place] the Medical morning. Branch pantoprazol 3-0 Yes [id number] 40mg Take 1 [facility] e 40 mg EC 5-22 tablet by ity of tablet 00:00: mouth in [place] the Medical morning. Branch pantoprazol 3-0 Yes [id number] 40mg Take 1 [facility] e 40 mg EC 5-22 tablet by ity of tablet 00:00: mouth in [place] the Medical morning. Branch pantoprazol 3-0 Yes [id number] 40mg Take 1 [facility] e 40 mg EC 5-22 tablet by ity of tablet 00:00: mouth in [place] the Medical morning. Branch pantoprazol 3-0 Yes [id number] 40mg Take 1 [facility] e 40 mg EC 5-22 tablet by ity of tablet 00:00: mouth in [place] the Medical morning. Branch pantoprazol 3-0 Yes [id number] 40mg Take 1 [facility] e 40 mg EC 5-22 tablet by ity of tablet 00:00: mouth in [place] the Medical morning. Branch pantoprazol 2023-0 Yes [id number] 40mg Take 1 [facility] e 40 mg EC 5-22 tablet by ity of tablet 00:00: mouth in [place] the Medical morning. Branch pantoprazol 2023-0 Yes [id number] 40mg Take 1 [facility] e 40 mg EC 5-22 tablet by ity of tablet 00:00: mouth in [place] 00 the Medical morning. Branch pantoprazol 2023-0 Yes [id number] 40mg Take 1 [facility] e 40 mg EC 5-22 tablet by ity of tablet 00:00: mouth in [place] 00 the Medical morning. Branch pantoprazol 2023-0 Yes [id number] 40mg Take 1 [facility] e 40 mg EC 5-22 tablet by ity of tablet 00:00: mouth in [place] 00 the Medical morning. Branch pantoprazol 3-0 Yes [id number] 40mg Take 1 [facility] e 40 mg EC 5-22 tablet by ity of tablet 00:00: mouth in [place] 00 the Medical morning. Branch pantoprazol 2023-0 Yes [id number] 40mg Take 1 [facility] e 40 mg EC 5-22 tablet by ity of tablet 00:00: mouth in [place] 00 the Medical morning. Branch pantoprazol 3-0 Yes [id number] 40mg Take 1 [facility] e 40 mg EC 5-22 tablet by ity of tablet 00:00: mouth in [place] 00 the Medical morning. Branch pantoprazol 3-0 Yes [id number] 40mg Take 1 [facility] e 40 mg EC 5-22 tablet by ity of tablet 00:00: mouth in [place] the Medical morning. Branch pantoprazol 3-0 Yes [id number] 40mg Take 1 [facility] e 40 mg EC 5-22 tablet by ity of tablet 00:00: mouth in [place] the Medical morning. Branch pantoprazol 3-0 Yes [id number] 40mg Take 1 [facility] e 40 mg EC 5-22 tablet by ity of tablet 00:00: mouth in [place] the Medical morning. Branch pantoprazol 3-0 Yes [id number] 40mg Take 1 [facility] e 40 mg EC 5-22 tablet by ity of tablet 00:00: mouth in [place] 00 the Medical morning. Branch pantoprazol 3-0 Yes [id number] 40mg Take 1 [facility] e 40 mg EC 5-22 tablet by ity of tablet 00:00: mouth in [place] 00 the Medical morning. Branch pantoprazol 2023-0 Yes [id number] 40mg Take 1 [facility] e 40 mg EC 5-22 tablet by ity of tablet 00:00: mouth in [place] 00 the Medical morning. Branch pantoprazol 2023-0 Yes [id number] 40mg Take 1 [facility] e 40 mg EC 5-22 tablet by ity of tablet 00:00: mouth in [place] 00 the Medical morning. Branch pantoprazol 2023-0 Yes [id number] 40mg Take 1 [facility] e 40 mg EC 5-22 tablet by ity of tablet 00:00: mouth in [place] 00 the Medical morning. Branch pantoprazol Yes [id number] 40mg Take 1 [facility] e 40 mg EC 5-22 tablet by ity of tablet 00:00: mouth in [place] the Medical morning. Branch pantoprazol Yes [id number] 40mg Take 1 [facility] e 40 mg EC 5-22 tablet by ity of tablet 00:00: mouth in [place] the Medical morning. Branch pantoprazol Yes [id number] 40mg Take 1 [facility] e 40 mg EC 5-22 tablet by ity of tablet 00:00: mouth in [place] the Medical morning. [facility] INJECT 2 [facility] ers mg/dose (8 5-17 MG UNDER ity o f mg/3 mL) 00:00: THE [address] Medical Branch [facility] 2 Yes INJECT 2 [facility] ers mg/dose (8 5-17 MG UNDER ity o f mg/3 mL) 00:00: THE [address] Medical Branch [facility] 2 Yes INJECT 2 [facility] ers mg/dose (8 5-17 MG UNDER ity o f mg/3 mL) 00:00: THE [address] Medical Branch [facility] 2 Yes INJECT 2 Univ ers mg/dose (8 5-17 MG UNDER ity o f mg/3 mL) 00:00: THE [address] Medical Branch [facility] 2 Yes INJECT 2 Univ ers mg/dose (8 5-17 MG UNDER ity o f mg/3 mL) 00:00: THE [address] Medical Branch [facility] 2 Yes INJECT 2 [facility] ers mg/dose (8 5-17 MG UNDER ity o f mg/3 mL) 00:00: THE [address] Medical Branch [facility] 2 Yes INJECT 2 [facility] ers mg/dose (8 5-17 MG UNDER ity o f mg/3 mL) 00:00: THE [address] Medical Branch [facility] 2 Yes INJECT 2 Univ ers mg/dose (8 5-17 MG UNDER ity o f mg/3 mL) 00:00: THE SKIN [place] [facility]nIj 00 WEEKLY Medical Branch [facility] 2 Yes INJECT 2 [facility] ers mg/dose (8 5-17 MG UNDER ity o f mg/3 mL) 00:00: THE SKIN [place] [facility] 00 WEEKLY Medical Branch [facility] 2 Yes INJECT 2 [facility] ers mg/dose (8 5-17 MG UNDER ity o f mg/3 mL) 00:00: THE SKIN [place] [facility]nIj 00 WEEKLY Medical Branch [facility] 2 Yes INJECT 2 [facility] ers mg/dose (8 5-17 MG UNDER ity o f mg/3 mL) 00:00: THE SKIN [place] [facility]nIj 00 WEEKLY Medical Branch [facility] 2 Yes INJECT 2 [facility] ers mg/dose (8 5-17 MG UNDER ity o f mg/3 mL) 00:00: THE SKIN [place] [facility]nIj 00 WEEKLY Medical Branch [facility] 2 Yes INJECT 2 Univ ers mg/dose (8 5-17 MG UNDER ity o f mg/3 mL) 00:00: THE SKIN [place] [facility]nIj 00 WEEKLY Medical Branch [facility] 2 Yes INJECT 2 Univ ers mg/dose (8 5-17 MG UNDER ity o f mg/3 mL) 00:00: THE SKIN [place] [facility]nIj 00 WEEKLY Medical Branch [facility] 2 Yes INJECT 2 [facility] ers mg/dose (8 5-17 MG UNDER ity o f mg/3 mL) 00:00: THE SKIN [place] [facility]nIj 00 WEEKLY Medical Branch [facility] 2 Yes INJECT 2 [facility] ers mg/dose (8 5-17 MG UNDER ity o f mg/3 mL) 00:00: THE SKIN [place] [facility]nIj 00 WEEKLY Medical Branch [facility] 2 Yes INJECT 2 [facility] ers mg/dose (8 5-17 MG UNDER ity o f mg/3 mL) 00:00: THE SKIN [place] [facility]nIj 00 WEEKLY Medical Branch [facility] 2 Yes INJECT 2 [facility] ers mg/dose (8 5-17 MG UNDER ity o f mg/3 mL) 00:00: THE SKIN [place] [facility]nIj 00 WEEKLY Medical Branch [facility] 2 Yes INJECT 2 [facility] ers mg/dose (8 5-17 MG UNDER ity o f mg/3 mL) 00:00: THE SKIN [place] [facility]nIj 00 WEEKLY Medical Branch [facility] 2 Yes INJECT 2 [facility] ers mg/dose (8 5-17 MG UNDER ity o f mg/3 mL) 00:00: THE SKIN [place] [facility]nIj 00 WEEKLY Medical Branch [facility] 2 Yes INJECT 2 [facility] ers mg/dose (8 5-17 MG UNDER ity o f mg/3 mL) 00:00: THE SKIN [place] [facility]nIj 00 WEEKLY Medical Branch [facility] 2 Yes INJECT 2 [facility] ers mg/dose (8 5-17 MG UNDER ity o f mg/3 mL) 00:00: THE SKIN [place] [facility]nIj 00 WEEKLY Medical Branch [facility] 2 Yes INJECT 2 [facility] ers mg/dose (8 5-17 MG UNDER ity o f mg/3 mL) 00:00: THE SKIN [place] [facility]nIj 00 WEEKLY Medical Branch [facility] 2 Yes INJECT 2 Univ ers mg/dose (8 5-17 MG UNDER ity o f mg/3 mL) 00:00: THE SKIN [place] PnIj 00 WEEKLY Medical Branch [facility] 2 Yes INJECT 2 Univ ers mg/dose (8 5-17 MG UNDER ity o f mg/3 mL) 00:00: THE SKIN [place] [facility]nIj 00 WEEKLY Medical Branch [facility] 2 Yes INJECT 2 Univ ers mg/dose (8 5-17 MG UNDER ity o f mg/3 mL) 00:00: THE SKIN [place] [facility]nIj 00 WEEKLY Medical Branch [facility] 2 Yes INJECT 2 Univ ers mg/dose (8 5-17 MG UNDER ity o f mg/3 mL) 00:00: THE SKIN [place] [facility]nIj 00 WEEKLY Medical Branch [facility] 2 Yes INJECT 2 Univ ers mg/dose (8 5-17 MG UNDER ity o f mg/3 mL) 00:00: THE SKIN [place] [facility]nIj 00 WEEKLY Medical Branch [facility] 2 Yes INJECT 2 Univ ers mg/dose (8 5-17 MG UNDER ity o f mg/3 mL) 00:00: THE SKIN [place] [facility]nIj 00 WEEKLY Medical Branch [facility] 2 Yes INJECT 2 Univ ers mg/dose (8 5-17 MG UNDER ity o f mg/3 mL) 00:00: THE SKIN [place] PnIj 00 WEEKLY Medical Branch [facility] 2 Yes INJECT 2 Univ ers mg/dose (8 5-17 MG UNDER ity o f mg/3 mL) 00:00: THE SKIN [place] PnIj 00 WEEKLY Medical Branch [facility] 2 Yes INJECT 2 Univ ers mg/dose (8 5-17 MG UNDER ity o f mg/3 mL) 00:00: THE SKIN [place] PnIj 00 WEEKLY Medical Branch [facility] 2 2022- No INJECT 2 Uni vers mg/dose (8 5-17 07-18 MG UNDER ity of mg/3 mL) 00:00: 00:[place] :00 WEEKLY Medical Branch [facility] 2 2022- No INJECT 2 Uni vers mg/dose (8 5-17 07-18 MG UNDER ity of mg/3 mL) 00:00: 00:[place] :00 WEEKLY Medical Branch [facility] 2 2022- No INJECT 2 Uni vers mg/dose (8 5-17 07-18 MG UNDER ity of mg/3 mL) 00:00: 00:[place] :00 WEEKLY Medical Branch [facility] 2 2022- No INJECT 2 Uni vers mg/dose (8 5-17 07-18 MG UNDER ity of mg/3 mL) 00:00: [place] :00 WEEKLY Medical Branch metformin 2022-0 Yes TAKE 2 Univer s ER 500 mg 5-16 TABLETS BY ity of 24 hr 00:00: MOUTH IN [place] tablet 00 THE Medical MORNING Branch AND TAKE 3 TABLETS IN THE EVENING( NEEDS APPOINTMEN T) metformin 2022-0 Yes TAKE 2 Univer s ER 500 mg 5-16 TABLETS BY ity of 24 hr 00:00: MOUTH IN [place] tablet 00 THE Medical MORNING Branch AND TAKE 3 TABLETS IN THE EVENING( NEEDS APPOINTMEN T) metformin 2022-0 Yes TAKE 2 Univer s ER 500 mg 5-16 TABLETS BY ity of 24 hr 00:00: MOUTH IN [place] tablet 00 THE Medical MORNING Branch AND TAKE 3 TABLETS IN THE EVENING( NEEDS APPOINTMEN T) metformin 2022-0 Yes TAKE 2 Univer s ER 500 mg 5-16 TABLETS BY ity of 24 hr 00:00: MOUTH IN [place] tablet 00 THE Medical MORNING Branch AND TAKE 3 TABLETS IN THE EVENING( NEEDS APPOINTMEN T) metformin 2022-0 Yes TAKE 2 Univer s ER 500 mg 5-16 TABLETS BY ity of 24 hr 00:00: MOUTH IN [place] tablet 00 THE Medical MORNING Branch AND TAKE 3 TABLETS IN THE EVENING( NEEDS APPOINTMEN T) metformin 2022-0 Yes TAKE 2 Univer s ER 500 mg 5-16 TABLETS BY ity of 24 hr 00:00: MOUTH IN [place] tablet 00 THE Medical MORNING Branch AND TAKE 3 TABLETS IN THE EVENING( NEEDS APPOINTMEN T) metformin 2022-0 Yes TAKE 2 Univer s ER 500 mg 5-16 TABLETS BY ity of 24 hr 00:00: MOUTH IN [place] tablet 00 THE Medical MORNING Branch AND TAKE 3 TABLETS IN THE EVENING( NEEDS APPOINTMEN T) metformin 2022-0 Yes TAKE 2 Univer s ER 500 mg 5-16 TABLETS BY ity of 24 hr 00:00: MOUTH IN [place] tablet 00 THE Medical MORNING Branch AND TAKE 3 TABLETS IN THE EVENING( NEEDS APPOINTMEN T) metformin 2022-0 Yes TAKE 2 Univer s ER 500 mg 5-16 TABLETS BY ity of 24 hr 00:00: MOUTH IN [place] tablet 00 THE Medical MORNING Branch AND TAKE 3 TABLETS IN THE EVENING( NEEDS APPOINTMEN T) metformin 2022-0 Yes TAKE 2 Univer s ER 500 mg 5-16 TABLETS BY ity of 24 hr 00:00: MOUTH IN [place] tablet 00 THE Medical MORNING Branch AND TAKE 3 TABLETS IN THE EVENING( NEEDS APPOINTMEN T) metformin 2022-0 Yes TAKE 2 Univer s ER 500 mg 5-16 TABLETS BY ity of 24 hr 00:00: MOUTH IN [place] tablet 00 THE Medical MORNING Branch AND TAKE 3 TABLETS IN THE EVENING( NEEDS APPOINTMEN T) metformin 2022-0 Yes TAKE 2 Univer s ER 500 mg 5-16 TABLETS BY ity of 24 hr 00:00: MOUTH IN [place] tablet 00 THE Medical MORNING Branch AND TAKE 3 TABLETS IN THE EVENING( NEEDS APPOINTMEN T) metformin 2022-0 Yes TAKE 2 Univer s ER 500 mg 5-16 TABLETS BY ity of 24 hr 00:00: MOUTH IN [place] tablet 00 THE Medical MORNING Branch AND TAKE 3 TABLETS IN THE EVENING( NEEDS APPOINTMEN T) metformin 3-0 202- No TAKE 2 Unive rs ER 500 mg 5-16 06-09 TABLETS BY ity of 24 hr 00:00: 00:00 MOUTH IN [place] tablet 00 :00 THE Medical MORNING Branch AND TAKE 3 TABLETS IN THE EVENING( NEEDS APPOINTMEN T) metformin 2022-0 2022- No TAKE 2 Unive rs ER 500 mg 5-16 06-09 TABLETS BY ity of 24 hr 00:00: 00:00 MOUTH IN [place] tablet 00 :00 THE Medical MORNING Branch AND TAKE 3 TABLETS IN THE EVENING( NEEDS APPOINTMEN T) metformin 2022-0 2022- No TAKE 2 Unive rs ER 500 mg 5-16 06-09 TABLETS BY ity of 24 hr 00:00: 00:00 MOUTH IN [place] tablet 00 :00 THE Medical MORNING Branch AND TAKE 3 TABLETS IN THE EVENING( NEEDS APPOINTMEN T) metformin 2022-0 2022- No TAKE 2 Unive rs ER 500 mg 5-16 06-09 TABLETS BY ity of 24 hr 00:00: 00:00 MOUTH IN [place] tablet 00 :00 THE Medical MORNING Branch AND TAKE 3 TABLETS IN THE EVENING( NEEDS APPOINTMEN T) metformin 2022-0 2022- No TAKE 2 Unive rs ER 500 mg 5-16 06-09 TABLETS BY ity of 24 hr 00:00: 00:00 MOUTH IN [place] tablet 00 :00 THE Medical MORNING Branch AND TAKE 3 TABLETS IN THE EVENING( NEEDS APPOINTMEN T) metformin 2022-0 2022- No TAKE 2 Unive rs ER 500 mg 5-16 06-09 TABLETS BY ity of 24 hr 00:00: 00:00 MOUTH IN [place] tablet 00 :00 THE Medical MORNING Branch AND TAKE 3 TABLETS IN THE EVENING( NEEDS APPOINTMEN T) JARDIANCE 2022- Yes [id number] TAKE 1 U nivers 25 mg Tab 5-02 TABLET BY ity o f 00:00: MOUTH ONCE [place] 00 DAILY IN Medical THE Branch MORNING meloxicam 2022- Yes [id number] 15mg Take 1 U nivers 15 mg 5-02 tablet by ity of tablet 00:00: mouth in [place] 00 the Medical morning. Branch meloxicam 2022- Yes [id number] 15mg Take 1 U nivers 15 mg 5-02 tablet by ity of tablet 00:00: mouth in [place] 00 the Medical morning. Branch JARDIANCE 2022- Yes [id number] TAKE 1 U nivers 25 mg Tab 5-02 TABLET BY ity o f 00:00: MOUTH ONCE [place] 00 DAILY IN [facility] THE [place] MORNING meloxicam 2022-0 Yes [id number] 15mg Take 1 U nivers 15 mg 5-02 tablet by ity of tablet 00:00: mouth in [place] 00 the Medical morning. Branch JARDIANCE 2022-0 Yes [id number] TAKE 1 U nivers 25 mg Tab 5-02 TABLET BY ity o f 00:00: MOUTH ONCE [place] 00 DAILY IN [facility] THE Branch MORNING meloxicam 2022-0 Yes [id number] 15mg Take 1 U nivers 15 mg 5-02 tablet by ity of tablet 00:00: mouth in [place] 00 the Medical morning. Branch JARDIANCE 2022-0 Yes [id number] TAKE 1 U nivers 25 mg Tab 5-02 TABLET BY ity o f 00:00: MOUTH ONCE [place] 00 DAILY IN [facility] THE [place] MORNING meloxicam 0 Yes [id number] 15mg Take 1 U nivers 15 mg 5-02 tablet by ity of tablet 00:00: mouth in [place] the Medical morning. Branch JARDIANCE 2022-0 Yes [id number] TAKE 1 U nivers 25 mg Tab 5-02 TABLET BY ity o f 00:00: MOUTH ONCE [place] 00 DAILY IN [facility] THE [place] MORNING meloxicam 0 Yes [id number] 15mg Take 1 U nivers 15 mg 5-02 tablet by ity of tablet 00:00: mouth in [place] the Medical morning. Branch JARDIANCE 2022-0 Yes [id number] TAKE 1 U nivers 25 mg Tab 5-02 TABLET BY ity o f 00:00: MOUTH ONCE [place] 00 DAILY IN [facility] THE Branch MORNING meloxicam 2022-0 Yes [id number] 15mg Take 1 U nivers 15 mg 5-02 tablet by ity of tablet 00:00: mouth in [place] the Medical morning. Branch JARDIANCE 2022-0 Yes [id number] TAKE 1 U nivers 25 mg Tab 5-02 TABLET BY ity o f 00:00: MOUTH ONCE [place] 00 DAILY IN [facility] THE [place] MORNING meloxicam 2022-0 Yes [id number] 15mg Take 1 U nivers 15 mg 5-02 tablet by ity of tablet 00:00: mouth in [place] 00 the Medical morning. Branch JARDIANCE 2022-0 Yes [id number] TAKE 1 U nivers 25 mg Tab 5-02 TABLET BY ity o f 00:00: MOUTH ONCE [place] 00 DAILY IN [facility] THE Branch MORNING meloxicam 2022-0 Yes [id number] 15mg Take 1 U nivers 15 mg 5-02 tablet by ity of tablet 00:00: mouth in [place] the Medical morning. Branch JARDIANCE 2022-0 Yes [id number] TAKE 1 U nivers 25 mg Tab 5-02 TABLET BY ity o f 00:00: MOUTH ONCE [place] 00 DAILY IN [facility] THE Branch MORNING meloxicam 2022-0 Yes [id number] 15mg Take 1 U nivers 15 mg 5-02 tablet by ity of tablet 00:00: mouth in [place] the Medical morning. Branch JARDIANCE 2022-0 Yes [id number] TAKE 1 U nivers 25 mg Tab 5-02 TABLET BY ity o f 00:00: MOUTH ONCE [place] 00 DAILY IN [facility] THE Branch MORNING meloxicam 2022-0 Yes [id number] 15mg Take 1 U nivers 15 mg 5-02 tablet by ity of tablet 00:00: mouth in [place] the Medical morning. Branch JARDIANCE 2022-0 Yes [id number] TAKE 1 U nivers 25 mg Tab 5-02 TABLET BY ity o f 00:00: MOUTH ONCE [place] 00 DAILY IN [facility] THE Branch MORNING meloxicam 2022-0 Yes [id number] 15mg Take 1 U nivers 15 mg 5-02 tablet by ity of tablet 00:00: mouth in [place] the Medical morning. Branch JARDIANCE 2022-0 Yes [id number] TAKE 1 U nivers 25 mg Tab 5-02 TABLET BY ity o f 00:00: MOUTH ONCE [place] 00 DAILY IN [facility] THE Branch MORNING meloxicam 2022-0 Yes [id number] 15mg Take 1 U nivers 15 mg 5-02 tablet by ity of tablet 00:00: mouth in [place] the Medical morning. Branch JARDIANCE 2022-0 Yes [id number] TAKE 1 U nivers 25 mg Tab 5-02 TABLET BY ity o f 00:00: MOUTH ONCE [place] 00 DAILY IN [facility] THE Branch MORNING meloxicam 2022-0 Yes [id number] 15mg Take 1 U nivers 15 mg 5-02 tablet by ity of tablet 00:00: mouth in [place] 00 the Medical morning. Branch JARDIANCE 2022-0 Yes [id number] TAKE 1 U nivers 25 mg Tab 5-02 TABLET BY ity o f 00:00: MOUTH ONCE [place] 00 DAILY IN Medical THE Branch MORNING meloxicam 2022-0 Yes [id number] 15mg Take 1 U nivers 15 mg 5-02 tablet by ity of tablet 00:00: mouth in [place] 00 the Medical morning. Branch JARDIANCE 2022-0 Yes [id number] TAKE 1 U nivers 25 mg Tab 5-02 TABLET BY ity o f 00:00: MOUTH ONCE [place] 00 DAILY IN [facility] THE Branch MORNING meloxicam 2022-0 Yes [id number] 15mg Take 1 U nivers 15 mg 5-02 tablet by ity of tablet 00:00: mouth in [place] 00 the Medical morning. Branch JARDIANCE 2022-0 Yes [id number] TAKE 1 U nivers 25 mg Tab 5-02 TABLET BY ity o f 00:00: MOUTH ONCE [place] 00 DAILY IN [facility] THE Branch MORNING meloxicam 2022-0 Yes [id number] 15mg Take 1 U nivers 15 mg 5-02 tablet by ity of tablet 00:00: mouth in [place] the Medical morning. Branch JARDIANCE 2022-0 Yes [id number] TAKE 1 U nivers 25 mg Tab 5-02 TABLET BY ity o f 00:00: MOUTH ONCE [place] 00 DAILY IN [facility] THE Branch MORNING meloxicam 2022-0 Yes [id number] 15mg Take 1 U nivers 15 mg 5-02 tablet by ity of tablet 00:00: mouth in [place] 00 the Medical morning. Branch JARDIANCE 2022-0 Yes [id number] TAKE 1 U nivers 25 mg Tab 5-02 TABLET BY ity o f 00:00: MOUTH ONCE [place] 00 DAILY IN [facility] THE Branch MORNING meloxicam 2022-0 Yes [id number] 15mg Take 1 U nivers 15 mg 5-02 tablet by ity of tablet 00:00: mouth in [place] 00 the Medical morning. Branch JARDIANCE 2022-0 Yes [id number] TAKE 1 U nivers 25 mg Tab 5-02 TABLET BY ity o f 00:00: MOUTH ONCE [place] 00 DAILY IN [facility] THE Branch MORNING meloxicam 2022-0 Yes [id number] 15mg Take 1 U nivers 15 mg 5-02 tablet by ity of tablet 00:00: mouth in [place] 00 the Medical morning. Branch JARDIANCE 2022-0 Yes [id number] TAKE 1 U nivers 25 mg Tab 5-02 TABLET BY ity o f 00:00: MOUTH ONCE [place] 00 DAILY IN [facility] THE Branch MORNING meloxicam 2022-0 Yes [id number] 15mg Take 1 U nivers 15 mg 5-02 tablet by ity of tablet 00:00: mouth in [place] 00 the Medical morning. Branch JARDIANCE 2022-0 Yes [id number] TAKE 1 U nivers 25 mg Tab 5-02 TABLET BY ity o f 00:00: MOUTH ONCE [place] 00 DAILY IN [facility] THE [place] MORNING meloxicam 0 Yes [id number] 15mg Take 1 U nivers 15 mg 5-02 tablet by ity of tablet 00:00: mouth in [place] the Medical morning. Branch JARDIANCE 2022-0 Yes [id number] TAKE 1 U nivers 25 mg Tab 5-02 TABLET BY ity o f 00:00: MOUTH ONCE [place] 00 DAILY IN [facility] THE [place] MORNING meloxicam 2022-0 Yes [id number] 15mg Take 1 U nivers 15 mg 5-02 tablet by ity of tablet 00:00: mouth in [place] the Medical morning. Branch JARDIANCE 2022-0 Yes [id number] TAKE 1 U nivers 25 mg Tab 5-02 TABLET BY ity o f 00:00: MOUTH ONCE [place] 00 DAILY IN [facility] THE [place] MORNING meloxicam 2022-0 Yes [id number] 15mg Take 1 U nivers 15 mg 5-02 tablet by ity of tablet 00:00: mouth in [place] the Medical morning. Branch JARDIANCE 2022-0 Yes [id number] TAKE 1 U nivers 25 mg Tab 5-02 TABLET BY ity o f 00:00: MOUTH ONCE [place] 00 DAILY IN [facility] THE [place] MORNING meloxicam 2022-0 Yes [id number] 15mg Take 1 U nivers 15 mg 5-02 tablet by ity of tablet 00:00: mouth in [place] 00 the Medical morning. Branch JARDIANCE 2022-0 Yes [id number] TAKE 1 U nivers 25 mg Tab 5-02 TABLET BY ity o f 00:00: MOUTH ONCE [place] 00 DAILY IN [facility] THE [place] MORNING meloxicam 2022-0 Yes [id number] 15mg Take 1 U nivers 15 mg 5-02 tablet by ity of tablet 00:00: mouth in [place] 00 the Medical morning. Branch JARDIANCE 2022-0 Yes [id number] TAKE 1 U nivers 25 mg Tab 5-02 TABLET BY ity o f 00:00: MOUTH ONCE [place] 00 DAILY IN [facility] THE [place] MORNING meloxicam 2022-0 Yes [id number] 15mg Take 1 U nivers 15 mg 5-02 tablet by ity of tablet 00:00: mouth in [place] 00 the Medical morning. Branch JARDIANCE 2022-0 Yes [id number] TAKE 1 U nivers 25 mg Tab 5-02 TABLET BY ity o f 00:00: MOUTH ONCE [place] 00 DAILY IN [facility] THE [place] MORNING meloxicam 2022-0 Yes [id number] 15mg Take 1 U nivers 15 mg 5-02 tablet by ity of tablet 00:00: mouth in [place] 00 the Medical morning. Branch JARDIANCE 2022-0 Yes [id number] TAKE 1 U nivers 25 mg Tab 5-02 TABLET BY ity o f 00:00: MOUTH ONCE [place] 00 DAILY IN [facility] THE [place] MORNING meloxicam 2022-0 Yes [id number] 15mg Take 1 U nivers 15 mg 5-02 tablet by ity of tablet 00:00: mouth in [place] the Medical morning. Branch JARDIANCE 2022-0 Yes [id number] TAKE 1 U nivers 25 mg Tab 5-02 TABLET BY ity o f 00:00: MOUTH ONCE [place] 00 DAILY IN [facility] THE [place] MORNING meloxicam 2022-0 Yes [id number] 15mg Take 1 U nivers 15 mg 5-02 tablet by ity of tablet 00:00: mouth in [place] 00 the Medical morning. Branch JARDIANCE 2022-0 Yes [id number] TAKE 1 U nivers 25 mg Tab 5-02 TABLET BY ity o f 00:00: MOUTH ONCE [place] 00 DAILY IN [facility] THE [place] MORNING meloxicam 2022-0 Yes [id number] 15mg Take 1 U nivers 15 mg 5-02 tablet by ity of tablet 00:00: mouth in [place] 00 the Medical morning. Branch JARDIANCE 2022-0 Yes [id number] TAKE 1 U nivers 25 mg Tab 5-02 TABLET BY ity o f 00:00: MOUTH ONCE [place] 00 DAILY IN [facility] MORNING meloxicam 2022-0 Yes [id number] 15mg Take 1 U nivers 15 mg 5-02 tablet by ity of tablet 00:00: mouth in [place] 00 the Medical morning. Branch JARDIANCE 2022-0 Yes [id number] TAKE 1 U nivers 25 mg Tab 5-02 TABLET BY ity o f 00:00: MOUTH ONCE [place] 00 DAILY IN [facility] THE [place] MORNING meloxicam 2022-0 Yes [id number] 15mg Take 1 U nivers 15 mg 5-02 tablet by ity of tablet 00:00: mouth in [place] 00 the Medical morning. Branch JARDIANCE 2022-0 Yes [id number] TAKE 1 U nivers 25 mg Tab 5-02 TABLET BY ity o f 00:00: MOUTH ONCE [place] 00 DAILY IN [facility] THE [place] MORNING meloxicam 2022-0 Yes [id number] 15mg Take 1 U nivers 15 mg 5-02 tablet by ity of tablet 00:00: mouth in [place] the Medical morning. Branch JARDIANCE 2022-0 Yes [id number] TAKE 1 U nivers 25 mg Tab 5-02 TABLET BY ity o f 00:00: MOUTH ONCE [place] 00 DAILY IN [facility] THE [place] MORNING meloxicam 0 Yes [id number] 15mg Take 1 U nivers 15 mg 5-02 tablet by ity of tablet 00:00: mouth in [place] the Medical morning. Branch JARDIANCE 2022-0 Yes [id number] TAKE 1 U nivers 25 mg Tab 5-02 TABLET BY ity o f 00:00: MOUTH ONCE [place] 00 DAILY IN [facility] THE [place] MORNING meloxicam 2022-0 Yes [id number] 15mg Take 1 U nivers 15 mg 5-02 tablet by ity of tablet 00:00: mouth in [place] 00 the Medical morning. Branch JARDIANCE 2022-0 Yes [id number] TAKE 1 U nivers 25 mg Tab 5-02 TABLET BY ity o f 00:00: MOUTH ONCE [place] 00 DAILY IN [facility] THE [place] MORNING meloxicam 2022-0 Yes [id number] 15mg Take 1 U nivers 15 mg 5-02 tablet by ity of tablet 00:00: mouth in [place] 00 the Medical morning. Branch JARDIANCE 2022-0 Yes [id number] TAKE 1 U nivers 25 mg Tab 5-02 TABLET BY ity o f 00:00: MOUTH ONCE [place] 00 DAILY IN [facility] THE Branch MORNING meloxicam 2022-0 Yes [id number] 15mg Take 1 U nivers 15 mg 5-02 tablet by ity of tablet 00:00: mouth in [place] 00 the Medical morning. Branch JARDIANCE 2022-0 Yes [id number] TAKE 1 U nivers 25 mg Tab 5-02 TABLET BY ity o f 00:00: MOUTH ONCE [place] 00 DAILY IN [facility] THE Branch MORNING meloxicam 2022-0 Yes [id number] 15mg Take 1 U nivers 15 mg 5-02 tablet by ity of tablet 00:00: mouth in [place] the Medical morning. Branch JARDIANCE 2022-0 Yes [id number] TAKE 1 U nivers 25 mg Tab 5-02 TABLET BY ity o f 00:00: MOUTH ONCE [place] 00 DAILY IN [facility] THE Branch MORNING meloxicam 2022-0 Yes [id number] 15mg Take 1 U nivers 15 mg 5-02 tablet by ity of tablet 00:00: mouth in [place] the Medical morning. Branch JARDIANCE 2022-0 Yes [id number] TAKE 1 U nivers 25 mg Tab 5-02 TABLET BY ity o f 00:00: MOUTH ONCE [place] 00 DAILY IN [facility] THE Branch MORNING meloxicam 2022-0 Yes [id number] 15mg Take 1 U nivers 15 mg 5-02 tablet by ity of tablet 00:00: mouth in [place] the Medical morning. Branch JARDIANCE 2022-0 Yes [id number] TAKE 1 U nivers 25 mg Tab 5-02 TABLET BY ity o f 00:00: MOUTH ONCE [place] 00 DAILY IN [facility] THE Branch MORNING meloxicam 2022-0 Yes [id number] 15mg Take 1 U nivers 15 mg 5-02 tablet by ity of tablet 00:00: mouth in [place] the Medical morning. Branch JARDIANCE 2022-0 Yes [id number] TAKE 1 U nivers 25 mg Tab 5-02 TABLET BY ity o f 00:00: MOUTH ONCE [place] 00 DAILY IN [facility] THE Branch MORNING meloxicam 2022-0 Yes [id number] 15mg Take 1 U nivers 15 mg 5-02 tablet by ity of tablet 00:00: mouth in [place] 00 the Medical morning. Branch JARDIANCE 2023-0 Yes [id number] TAKE 1 U nivers 25 mg Tab 5-02 TABLET BY ity o f 00:00: MOUTH ONCE [place] 00 DAILY IN Medical THE Branch MORNING meloxicam 0 Yes [id number] 15mg Take 1 U nivers 15 mg 5-02 tablet by ity of tablet 00:00: mouth in [place] 00 the Medical morning. Branch JARDIANCE 0 Yes [id number] TAKE 1 U nivers 25 mg Tab 5-02 TABLET BY ity o f 00:00: MOUTH ONCE [place] 00 DAILY IN Medical THE Branch MORNING meloxicam 0 Yes [id number] 15mg Take 1 U nivers 15 mg 5-02 tablet by ity of tablet 00:00: mouth in [place] 00 the Medical morning. Branch JARDIANCE 0 Yes [id number] TAKE 1 U nivers 25 mg Tab 5-02 TABLET BY ity o f 00:00: MOUTH ONCE [place] 00 DAILY IN [facility] THE Branch MORNING JARDIANCE 0 Yes [id number] TAKE 1 U nivers 25 mg Tab 5-02 TABLET BY ity o f 00:00: MOUTH ONCE [place] 00 DAILY IN [facility] THE [place] MORNING JARDIANCE 0 Yes [id number] TAKE 1 U nivers 25 mg Tab 5-02 TABLET BY ity o f 00:00: MOUTH ONCE [place] 00 DAILY IN [facility] THE [place] MORNING JARDIANCE 0 Yes [id number] TAKE 1 U nivers 25 mg Tab 5-02 TABLET BY ity o f 00:00: MOUTH ONCE [place] 00 DAILY IN [facility] THE Branch MORNING JARDIANCE 0 Yes [id number] TAKE 1 U nivers 25 mg Tab 5-02 TABLET BY ity o f 00:00: MOUTH ONCE [place] 00 DAILY IN [facility] THE [place] MORNING JARDIANCE 0 Yes [id number] TAKE 1 U nivers 25 mg Tab 5-02 TABLET BY ity o f 00:00: MOUTH ONCE [place] 00 DAILY IN Medical THE [place] MORNING JARDIANCE 0 Yes [id number] TAKE 1 U nivers 25 mg Tab 5-02 TABLET BY ity o f 00:00: MOUTH ONCE [place] 00 DAILY IN [facility] THE [place] MORNING JARDIANCE 2022-0 2022- No [id number] TAKE 1 Univers 25 mg Tab 5-02 08-02 TABLET BY ity of 00:00: 00:00 MOUTH ONCE [place] 00 :00 DAILY IN [facility] THE [place] MORNING JARDIANCE 2022-0 3- No [id number] TAKE 1 Univers 25 mg Tab 5-02 08-02 TABLET BY ity of 00:00: 00:00 MOUTH ONCE [place] 00 :00 DAILY IN [facility] THE [place] MORNING JARDIANCE 2022-0 3- No [id number] TAKE 1 Univers 25 mg Tab 5-02 08-02 TABLET BY ity of 00:00: 00:00 MOUTH ONCE [place] 00 :00 DAILY IN [facility] THE [place] MORNING meloxicam 2022-0 3- No [id number] 15mg Take 1 Univers 15 mg 5-02 08-01 tablet by ity of tablet 00:00: 00:00 mouth in [place] 00 :00 the Medical morning. [place] meloxicam 2022-0 2022- No [id number] 15mg Take 1 Univers 15 mg 5-02 08-01 tablet by ity of tablet 00:00: 00:00 mouth in [place] 00 :00 the Medical morning. [place] meloxicam 2022-0 3- No [id number] 15mg Take 1 Univers 15 mg 5-02 08-01 tablet by ity of tablet 00:00: 00:00 mouth in [place] 00 :00 the Medical morning. [place] meloxicam 2022-0 3- No [id number] 15mg Take 1 Univers 15 mg 5-02 08-01 tablet by ity of tablet 00:00: 00:00 mouth in [place] 00 :00 the Medical morning. [place] meloxicam 2022-0 3- No [id number] 15mg Take 1 Univers 15 mg 5-02 08-01 tablet by ity of tablet 00:00: 00:00 mouth in [place] 00 :00 the Medical morning. [place] meloxicam 3-0 3- No [id number] 15mg Take 1 [facility] 15 mg 5-02 08-01 tablet by ity of tablet 00:00: 00:00 mouth in [place] 00 :00 the Medical morning. [place] meloxicam 3-0 3- No [id number] 15mg Take 1 Univers 15 mg 5-02 08-01 tablet by ity of tablet 00:00: 00:00 mouth in [place] 00 :00 the Medical morning. [place] triamcinolo 3-0 3- No [id number] 80mg Univers ne 12-11 ity of acetonide 17:00: 15:56 [place] (KENALOG) 00 :00 Medical injection Branch 80 mg sodium 2022-0 2022- No [id number] .5mL Unive rs bicarbonate 12-11 ity of 1 mEq/mL 17:00: 15:55 [place] (8.4 %) 00 :00 Medical injection Branch 0.5 mL lidocaine 2022-0 2022- No [id number] 10mL Un joby 1% (PF) 12-11 ity of (XYLOCAINE) 17:00: 15:55 [place] injection 00 :00 Medical 10 mL Branch lidocaine 2022-0 2022- No [id number] 10mL 10 mL, Univers 1% (PF) 12-11 Subcutaneo ity o f (XYLOCAINE) 17:00: 15:55 us, ONCE, [place] injection 00 :00 1 dose, On Medi nirmal 10 mL 12/11/22 Branch at 1200, Routine sodium 2022-0 2022- No [id number] .5mL 0.5 mL, Un joby bicarbonate 12-11 Infiltrati i ty of 1 mEq/mL 17:00: 15:55 on, ONCE, [place] (8.4 %) 00 :00 1 dose, On Medica l injection [facility] 12/11/22 Bran ch 0.5 mL at 1200, Routine triamcinolo 2022-0 2022- No [id number] 80mg 80 mg, Univers ne 12-11 Epidural, ity of acetonide 17:00: 15:56 [place]CE[place] ([place] 00 :00 dose, On Medica l injection 12/11/22 Bran ch 80 mg at 1200, Routine triamcinolo 2022-0 2022- No [id number] 80mg Univers ne 12-11 ity of acetonide 17:00: 15:56 [place] (KENALOG) 00 :00 Medical injection Branch 80 mg sodium 2022-0 2022- No [id number] .5mL Unive rs bicarbonate 12-11 ity of 1 mEq/mL 17:00: 15:55 [place] (8.4 %) 00 :00 Medical injection Branch 0.5 mL lidocaine 3-0 2022- No [id number] 10mL Un joby 1% (PF) 12-11 ity of (XYLOCAINE) 17:00: 15:55 [place] injection 00 :00 Medical 10 mL Branch lidocaine 2022- No [id number] 10mL 10 mL, Univers 1% (PF) 12-11 Subcutaneo ity o f (XYLOCAINE) 17:00: 15:55 us, ONCE, [place] injection 00 :00 1 dose, On Medi nirmal 10 mL 12/11/22 Branch at 1200, Routine sodium 2022- No [id number] .5mL 0.5 mL, Un joby bicarbonate 12-11 Infiltrati i ty of 1 mEq/mL 17:00: 15:55 on, ONCE, [place] (8.4 %) 00 :00 1 dose, On Medica l injection [facility] 12/11/22 Bran ch 0.5 mL at 1200, Routine triamcinolo 2022- No [id number] 80mg 80 mg, Univers ne 12-11 Epidural, ity of acetonide 17:00: 15:56 [place]CE, [place] ([place] 00 :00 dose, On Medica l injection [facility] 12/11/22 Bran ch 80 mg at 1200, Routine NaCl 0.9% 2022- No [id number] 10mL Un joby (NS) 12-11 ity of injection 16:45: 15:55 [place] 10 mL 00 :00 Medical Branch NaCl 0.9% 0 2022- No [id number] 10mL 10 mL, Univers (NS) 12-11 Infiltrati ity of injection 16:45: 15:55 on, ONCE, [place] 10 mL 00 :00 1 dose, On Medical 12/11/22 Branch at 1145, Routine NaCl 0.9% 0 2022- No [id number] 10mL Un joby (NS) 12-11 ity of injection 16:45: 15:55 [place] 10 mL 00 :00 Medical Branch NaCl 0.9% 0 2022- No [id number] 10mL 10 mL, Univers (NS) 12-11 Infiltrati ity of injection 16:45: 15:55 on[place] ONCE, [place] 10 mL 00 :00 1 dose, On Medical 12/11/22 Branch at 1145, Routine NaCl 0.9% 3-0 2023- No [id number] 250mL U nivers (NS) IV 12-11 ity of infusion 15:30: 15:11 [place] 250 mL 00 :00 Medical Branch NaCl 0.9% 2023-0 2023- No [id number] 250mL at 20 Univers (NS) IV 12-11 mL/hr, IV ity of infusion 15:30: 15:11 Infusion, [place] 250 mL 00 :00 ONCE, 1 Medical dose, On Branch 12/11/22 at 1030, Routine NaCl 0.9% 3-0 2023- No [id number] 250mL U nivers (NS) IV 12-11 ity of infusion 15:30: 15:11 [place] 250 mL 00 :00 Medical Branch NaCl 0.9% 3-0 2023- No [id number] 250mL at 20 Univers (NS) IV 12-11 mL/hr, IV ity of infusion 15:30: 15:11 Infusion, [place] 250 mL 00 :00 ONCE, 1 Medical dose, On Branch 12/11/22 at 1030, Routine meclizine 2023-0 Yes [id number] TAKE 1 U nivers 25 mg 4-27 TABLET BY ity of tablet 00:00: MOUTH [place] 00 EVERY 8 Medical HOURS Branch NEEDED meclizine 2023-0 Yes [id number] TAKE 1 U nivers 25 mg 4-27 TABLET BY ity of tablet 00:00: MOUTH [place] 00 EVERY 8 Medical HOURS Branch NEEDED meclizine 2023-0 Yes [id number] TAKE 1 U nivers 25 mg 4-27 TABLET BY ity of tablet 00:00: MOUTH [place] 00 EVERY 8 Medical HOURS Branch NEEDED meclizine 2023-0 Yes [id number] TAKE 1 U nivers 25 mg 4-27 TABLET BY ity of tablet 00:00: MOUTH [place] 00 EVERY 8 Medical HOURS Branch NEEDED meclizine 2023-0 Yes [id number] TAKE 1 U nivers 25 mg 4-27 TABLET BY ity of tablet 00:00: MOUTH [place] 00 EVERY 8 Medical HOURS Branch NEEDED meclizine 2023-0 Yes [id number] TAKE 1 [facility] 25 mg 4-27 TABLET BY [facility] tablet 00:00: MOUTH [place] 00 EVERY 8 [facility] HOURS Branch NEEDED meclizine 2023-0 Yes [id number] TAKE 1 [facility] 25 mg 4-27 TABLET BY [facility] tablet 00:00: MOUTH [place] 00 EVERY 8 Medical HOURS Branch NEEDED meclizine 2023-0 Yes [id number] TAKE 1 [facility] 25 mg 4-27 TABLET BY [facility] tablet 00:00: MOUTH [place] 00 EVERY 8 Medical HOURS [facility] NEEDED meclizine 2023-0 Yes [id number] TAKE 1 [facility] 25 mg 4-27 TABLET BY [facility] tablet 00:00: MOUTH [place] 00 EVERY 8 Medical HOURS [facility] NEEDED meclizine 2023-0 Yes [id number] TAKE 1 [facility] 25 mg 4-27 TABLET BY [facility] tablet 00:00: MOUTH 00 EVERY 8 [facility] HOURS [facility] NEEDED meclizine 2023-0 Yes [id number] TAKE 1 [facility] 25 mg 4-27 TABLET BY [facility] tablet 00:00: MOUTH [place] 00 EVERY 8 Medical HOURS [facility] NEEDED meclizine 2023-0 Yes [id number] TAKE 1 [facility] 25 mg 4-27 TABLET BY [facility] tablet 00:00: MOUTH [place] 00 EVERY 8 Medical HOURS [facility] NEEDED meclizine 2023-0 Yes [id number] TAKE 1 [facility] 25 mg 4-27 TABLET BY [facility] tablet 00:00: MOUTH [place] 00 EVERY 8 Medical HOURS [facility] NEEDED meclizine 2023-0 Yes [id number] TAKE 1 [facility] 25 mg 4-27 TABLET BY [facility] tablet 00:00: MOUTH [place] 00 EVERY 8 [facility] HOURS [facility] NEEDED meclizine 2023-0 Yes [id number] TAKE 1 [facility] 25 mg 4-27 TABLET BY [facility] tablet 00:00: MOUTH [place] 00 EVERY 8 [facility] HOURS [facility] NEEDED meclizine 2023-0 Yes [id number] TAKE 1 [facility] 25 mg 4-27 TABLET BY [facility] tablet 00:00: MOUTH [place] 00 EVERY 8 [facility] HOURS [facility] NEEDED meclizine 2023-0 Yes [id number] TAKE 1 [facility] 25 mg 4-27 TABLET BY [facility] tablet 00:00: MOUTH [place] 00 EVERY 8 [facility] HOURS [facility] NEEDED meclizine 2023-0 Yes [id number] TAKE 1 [facility] 25 mg 4-27 TABLET BY [facility] tablet 00:00: MOUTH [place] 00 EVERY 8 [facility] HOURS [facility] NEEDED meclizine 2023-0 Yes [id number] TAKE 1 [facility] 25 mg 4-27 TABLET BY [facility] tablet 00:00: MOUTH 00 EVERY 8 [facility] HOURS [facility] NEEDED meclizine 2023-0 Yes [id number] TAKE 1 [facility] 25 mg 4-27 TABLET BY [facility] tablet 00:00: MOUTH [place] 00 EVERY 8 [facility] HOURS [facility] NEEDED meclizine 2023-0 Yes [id number] TAKE 1 [facility] 25 mg 4-27 TABLET BY [facility] tablet 00:00: MOUTH [place] 00 EVERY 8 [facility] HOURS [facility] NEEDED meclizine 2023-0 Yes [id number] TAKE 1 [facility] 25 mg 4-27 TABLET BY [facility] tablet 00:00: MOUTH 00 EVERY 8 [facility] HOURS [facility] NEEDED meclizine 2023-0 Yes [id number] TAKE 1 [facility] 25 mg 4-27 TABLET BY [facility] tablet 00:00: MOUTH 00 EVERY 8 [facility] HOURS [facility] NEEDED meclizine 2023-0 Yes [id number] TAKE 1 [facility] 25 mg 4-27 TABLET BY [facility] tablet 00:00: MOUTH [place] 00 EVERY 8 [facility] HOURS [facility] NEEDED meclizine 2023-0 Yes [id number] TAKE 1 [facility] 25 mg 4-27 TABLET BY [facility] tablet 00:00: MOUTH 00 EVERY 8 [facility] HOURS [facility] NEEDED meclizine 2023-0 Yes [id number] TAKE 1 [facility] 25 mg 4-27 TABLET BY [facility] tablet 00:00: MOUTH [place] 00 EVERY 8 [facility] HOURS [facility] NEEDED meclizine 2023-0 Yes [id number] TAKE 1 [facility] 25 mg 4-27 TABLET BY [facility] tablet 00:00: MOUTH [place] 00 EVERY 8 [facility] HOURS [facility] NEEDED meclizine 2023-0 Yes [id number] TAKE 1 [facility] 25 mg 4-27 TABLET BY [facility] tablet 00:00: MOUTH [place] 00 EVERY 8 [facility] HOURS [facility] NEEDED meclizine 2023-0 Yes [id number] TAKE 1 [facility] 25 mg 4-27 TABLET BY [facility] tablet 00:00: MOUTH [place] 00 EVERY 8 Medical HOURS [facility] NEEDED meclizine 2023-0 Yes [id number] TAKE 1 [facility] 25 mg 4-27 TABLET BY [facility] tablet 00:00: MOUTH [place] 00 EVERY 8 [facility] HOURS [facility] NEEDED meclizine 2023-0 Yes [id number] TAKE 1 [facility] 25 mg 4-27 TABLET BY [facility] tablet 00:00: MOUTH [place] 00 EVERY 8 Medical HOURS Branch NEEDED meclizine 2023-0 Yes [id number] TAKE 1 [facility] 25 mg 4-27 TABLET BY [facility] tablet 00:00: MOUTH [place] 00 EVERY 8 [facility] HOURS [facility] NEEDED meclizine 2023-0 Yes [id number] TAKE 1 [facility] 25 mg 4-27 TABLET BY [facility] tablet 00:00: MOUTH 00 EVERY 8 [facility] HOURS Branch NEEDED meclizine 2023-0 Yes [id number] TAKE 1 [facility] 25 mg 4-27 TABLET BY [facility] tablet 00:00: MOUTH [place] 00 EVERY 8 Medical HOURS Branch NEEDED meclizine 2023-0 Yes [id number] TAKE 1 [facility] 25 mg 4-27 TABLET BY [facility] tablet 00:00: MOUTH [place] 00 EVERY 8 Medical HOURS Branch NEEDED meclizine 2023-0 Yes [id number] TAKE 1 [facility] 25 mg 4-27 TABLET BY [facility] tablet 00:00: MOUTH [place] 00 EVERY 8 Medical HOURS Branch NEEDED meclizine 2023-0 Yes [id number] TAKE 1 [facility] 25 mg 4-27 TABLET BY [facility] tablet 00:00: MOUTH [place] 00 EVERY 8 [facility] HOURS [facility] NEEDED meclizine 2023-0 Yes [id number] TAKE 1 [facility] 25 mg 4-27 TABLET BY [facility] tablet 00:00: MOUTH [place] 00 EVERY 8 [facility] HOURS [facility] NEEDED meclizine 2023-0 Yes [id number] TAKE 1 [facility] 25 mg 4-27 TABLET BY [facility] tablet 00:00: MOUTH [place] 00 EVERY 8 Medical HOURS Branch NEEDED meclizine 2023-0 Yes [id number] TAKE 1 [facility] 25 mg 4-27 TABLET BY [facility] tablet 00:00: MOUTH [place] 00 EVERY 8 Medical HOURS Branch NEEDED meclizine 2023-0 Yes [id number] TAKE 1 [facility] 25 mg 4-27 TABLET BY [facility] tablet 00:00: MOUTH [place] 00 EVERY 8 Medical HOURS Branch NEEDED meclizine 2023-0 Yes [id number] TAKE 1 [facility] 25 mg 4-27 TABLET BY [facility] tablet 00:00: MOUTH [place] 00 EVERY 8 Medical HOURS Branch NEEDED meclizine 2023-0 Yes [id number] TAKE 1 [facility] 25 mg 4-27 TABLET BY [facility] tablet 00:00: MOUTH [place] 00 EVERY 8 Medical HOURS Branch NEEDED meclizine 2023-0 Yes [id number] TAKE 1 [facility] 25 mg 4-27 TABLET BY [facility] tablet 00:00: [facility] 00 EVERY 8 Medical HOURS Branch NEEDED meclizine 2023-0 Yes [id number] TAKE 1 [facility] 25 mg 4-27 TABLET BY [facility] tablet 00:00: [facility] 00 EVERY 8 Medical HOURS Branch NEEDED meclizine 2023-0 Yes [id number] TAKE 1 [facility] 25 mg 4-27 TABLET BY [facility] tablet 00:00: MOUTH [place] 00 EVERY 8 Medical HOURS Branch NEEDED meclizine 2023-0 Yes [id number] TAKE 1 [facility] 25 mg 4-27 TABLET BY [facility] tablet 00:00: [facility] 00 EVERY 8 Medical HOURS Branch NEEDED meclizine 2023-0 2023- No [id number] TAKE 1 [facility] 25 mg 4-27 07-25 TABLET BY [facility] tablet 00:00: 00:00 MOUTH [place] 00 :00 EVERY 8 Medical HOURS Branch NEEDED meclizine 2023-0 2023- No [id number] TAKE 1 [facility] 25 mg 4-27 07-25 TABLET BY [facility] tablet 00:00: 00:00 MOUTH [place] 00 :00 EVERY 8 Medical HOURS Branch NEEDED meclizine 2023-0 2023- No [id number] TAKE 1 [facility] 25 mg 4-27 07-25 TABLET BY [facility] tablet 00:00: 00:00 MOUTH [place] 00 :00 EVERY 8 Medical HOURS Branch NEEDED meclizine 2023-0 2023- No [id number] TAKE 1 [facility] 25 mg 4-27 07-25 TABLET BY [facility] tablet 00:00: 00:00 MOUTH [place] 00 :00 EVERY 8 Medical HOURS Branch NEEDED meclizine 3-0 3- No [id number] TAKE 1 [facility] 25 mg 4-27 07-25 TABLET BY [facility] tablet 00:00: 00:00 MOUTH [place] 00 :00 EVERY 8 Medical HOURS Branch NEEDED meclizine 2023-0 3- No [id number] TAKE 1 [facility] 25 mg 4-27 07-25 TABLET BY [facility] tablet 00:00: 00:00 MOUTH [place] 00 :00 EVERY 8 Medical HOURS Branch NEEDED ONDANSETRON 3-0 3- No Take by [facility] HCL ORAL 4-19 04-19 mouth. [facility] of 11:48: 00:00 [place] 30 :00 Medical Branch ONDANSETRON 3-0 3- No Take by [facility] HCL ORAL 4-19 04-19 mouth. ity of 11:48: 00:00 [place] 30 :00 Medical Branch ONDANSETRON 3-0 3- No Take by [facility] HCL ORAL 4-19 04-19 mouth. ity of 11:48: 00:00 [place] 30 :00 Medical Branch fluticasone 2023-0 Yes [id number] 1{spray Use 1 [facility] propionate 4-19 } [place] in [facility] 50 00:00: each [place] mcg/actuati 00 nostril in Me dical on nasal the Branch spray morning. fluticasone 3-0 Yes [id number] 1{spray Use 1 [facility] propionate 4-19 } [place] [facility] 50 00:00: each [place] mcg/actuati 00 nostril in Me dical on nasal the Branch spray morning. fluticasone 3-0 Yes [id number] 1{spray Use 1 [facility] propionate 4-19 } [place] [facility] 50 00:00: each [place] mcg/actuati 00 nostril in Me dical on nasal the Branch spray morning. fluticasone 2023-0 Yes [id number] 1{spray Use 1 [facility] propionate 4-19 } [place] [facility] 50 00:00: each [place] mcg/actuati 00 nostril in Me dical on nasal the Branch spray morning. fluticasone 2023-0 Yes [id number] 1{spray Use 1 [facility] propionate 4-19 } [place] [facility] 50 00:00: each [place] mcg/actuati 00 nostril in Me dical on nasal the Branch spray morning. fluticasone 3-0 Yes [id number] 1{spray Use 1 [facility] propionate 4-19 } [place] [facility] 50 00:00: each [place] mcg/actuati 00 nostril in Me dical on nasal the Branch spray morning. fluticasone 3-0 Yes [id number] 1{spray Use 1 [facility] propionate 4-19 } [place] [facility] 50 00:00: each [place] mcg/actuati 00 nostril in Me dical on nasal the Branch spray morning. fluticasone 2022-0 Yes [id number] 1{spray Use 1 [facility] propionate 4-19 } [place] [facility] 50 00:00: each [place] mcg/actuati 00 nostril in Me dical on nasal the Branch spray morning. fluticasone 3-0 Yes [id number] 1{spray Use 1 [facility] propionate 4-19 } [place] [facility] 50 00:00: each [place] mcg/actuati 00 nostril in Me dical on nasal the Branch spray morning. fluticasone 2022-0 Yes [id number] 1{spray Use 1 [facility] propionate 4-19 } [place] [facility] 50 00:00: each [place] mcg/actuati 00 nostril in Me dical on nasal the Branch spray morning. fluticasone 3-0 Yes [id number] 1{spray Use 1 [facility] propionate 4-19 } [place] [facility] 50 00:00: each [place] mcg/actuati 00 nostril in Me dical on nasal the Branch spray morning. fluticasone 3-0 Yes [id number] 1{spray Use 1 [facility] propionate 4-19 } [facility] 00:00: each [place] mcg/actuati 00 nostril in Me dical on nasal the Branch spray morning. fluticasone 3-0 Yes [id number] 1{spray Use 1 [facility] propionate 4-19 } [facility] 00:00: each [place] mcg/actuati 00 nostril in Me dical on nasal the Branch spray morning. fluticasone 3-0 Yes [id number] 1{spray Use 1 [facility] propionate 4-19 } [place] [facility] 50 00:00: each [place] mcg/actuati 00 nostril in Me dical on nasal the Branch spray morning. fluticasone 3-0 Yes [id number] 1{spray Use 1 [facility] propionate 4-19 } [place] [facility] 50 00:00: each [place] mcg/actuati 00 nostril in Me dical on nasal the Branch spray morning. fluticasone 2022-0 Yes [id number] 1{spray Use 1 [facility] propionate 4-19 } [place] [facility] 50 00:00: each [place] mcg/actuati 00 nostril in Me dical on nasal the Branch spray morning. fluticasone 2022-0 Yes [id number] 1{spray Use 1 [facility] propionate 4-19 } [place] [facility] 50 00:00: each [place] mcg/actuati 00 nostril in Me dical on nasal the Branch spray morning. fluticasone 2022-0 Yes [id number] 1{spray Use 1 [facility] propionate 4-19 } [place] [facility] 50 00:00: each [place] mcg/actuati 00 nostril in Me dical on nasal the Branch spray morning. fluticasone 2022-0 Yes [id number] 1{spray Use 1 [facility] propionate 4-19 } [place] [facility] 50 00:00: each [place] mcg/actuati 00 nostril in Me dical on nasal the Branch spray morning. fluticasone 2022-0 Yes [id number] 1{spray Use 1 [facility] propionate 4-19 } [place] [facility] 50 00:00: each [place] mcg/actuati 00 nostril in Me dical on nasal the Branch spray morning. fluticasone 2022-0 Yes [id number] 1{spray Use 1 [facility] propionate 4-19 } [facility] 00:00: each [place] mcg/actuati 00 nostril in Me dical on nasal the Branch spray morning. fluticasone 2022-0 Yes [id number] 1{spray Use 1 [facility] propionate 4-19 } [facility] 00:00: each [place] mcg/actuati 00 nostril in Me dical on nasal the Branch spray morning. fluticasone 3-0 Yes [id number] 1{spray Use 1 [facility] propionate 4-19 } [place] [facility] 50 00:00: each [place] mcg/actuati 00 nostril in Me dical on nasal the Branch spray morning. fluticasone 3-0 Yes [id number] 1{spray Use 1 [facility] propionate 4-19 } [place] [facility] 50 00:00: each [place] mcg/actuati 00 nostril in Me dical on nasal the Branch spray morning. fluticasone 3-0 Yes [id number] 1{spray Use 1 [facility] propionate 4-19 } [place] [facility] 50 00:00: each [place] mcg/actuati 00 nostril in Me dical on nasal the Branch spray morning. fluticasone 2022-0 Yes [id number] 1{spray Use 1 [facility] propionate 4-19 } [facility] 00:00: each [place] mcg/actuati 00 nostril in Me dical on nasal the Branch spray morning. fluticasone 2022-0 Yes [id number] 1{spray Use 1 [facility] propionate 4-19 } [facility] 00:00: each [place] mcg/actuati 00 nostril in Me dical on nasal the Branch spray morning. fluticasone 2022-0 Yes [id number] 1{spray Use 1 [facility] propionate 4-19 } [facility] 00:00: each [place] mcg/actuati 00 nostril in Me dical on nasal the Branch spray morning. fluticasone 2022-0 Yes [id number] 1{spray Use 1 [facility] propionate 4-19 } [facility] 00:00: each [place] mcg/actuati 00 nostril in Me dical on nasal the Branch spray morning. fluticasone 3-0 Yes [id number] 1{spray Use 1 [facility] propionate 4-19 } [place] [facility] 50 00:00: each [place] mcg/actuati 00 nostril in Me dical on nasal the Branch spray morning. fluticasone 3-0 Yes [id number] 1{spray Use 1 [facility] propionate 4-19 } [place] [facility] 50 00:00: each [place] mcg/actuati 00 nostril in Me dical on nasal the Branch spray morning. fluticasone 3-0 Yes [id number] 1{spray Use 1 [facility] propionate 4-19 } [facility] 00:00: each [place] mcg/actuati 00 nostril in Me dical on nasal the Branch spray morning. fluticasone 2022-0 Yes [id number] 1{spray Use 1 [facility] propionate 4-19 } [place] [facility] 50 00:00: each [place] mcg/actuati 00 nostril in Me dical on nasal the Branch spray morning. fluticasone 2022-0 Yes [id number] 1{spray Use 1 [facility] propionate 4-19 } [place] [facility] 50 00:00: each [place] mcg/actuati 00 nostril in Me dical on nasal the Branch spray morning. fluticasone 2022-0 Yes [id number] 1{spray Use 1 [facility] propionate 4-19 } [place] [facility] 50 00:00: each [place] mcg/actuati 00 nostril in Me dical on nasal the Branch spray morning. fluticasone 2022-0 Yes [id number] 1{spray Use 1 [facility] propionate 4-19 } [place] [facility] 50 00:00: each [place] mcg/actuati 00 nostril in Me dical on nasal the Branch spray morning. fluticasone 2022-0 Yes [id number] 1{spray Use 1 [facility] propionate 4-19 } [place] [facility] 50 00:00: each [place] mcg/actuati 00 nostril in Me dical on nasal the Branch spray morning. fluticasone 3-0 Yes [id number] 1{spray Use 1 [facility] propionate 4-19 } [place] [facility] 50 00:00: each [place] mcg/actuati 00 nostril in Me dical on nasal the Branch spray morning. fluticasone 2022-0 Yes [id number] 1{spray Use 1 [facility] propionate 4-19 } [facility] 00:00: each [place] mcg/actuati 00 nostril in Me dical on nasal the Branch spray morning. fluticasone 3-0 Yes [id number] 1{spray Use 1 [facility] propionate 4-19 } [facility] 00:00: each [place] mcg/actuati 00 nostril in Me dical on nasal the Branch spray morning. fluticasone 2022-0 Yes [id number] 1{spray Use 1 [facility] propionate 4-19 } [place] [facility] 50 00:00: each [place] mcg/actuati 00 nostril in Me dical on nasal the Branch spray morning. fluticasone 2022-0 Yes [id number] 1{spray Use 1 [facility] propionate 4-19 } [place] [facility] 50 00:00: each [place] mcg/actuati 00 nostril in Me dical on nasal the Branch spray morning. fluticasone 2022-0 Yes [id number] 1{spray Use 1 [facility] propionate 4-19 } [place] [facility] 50 00:00: each [place] mcg/actuati 00 nostril in Me dical on nasal the Branch spray morning. fluticasone 2022-0 Yes [id number] 1{spray Use 1 [facility] propionate 4-19 } [place] [facility] 50 00:00: each [place] mcg/actuati 00 nostril in Me dical on nasal the Branch spray morning. fluticasone 2022-0 Yes [id number] 1{spray Use 1 [facility] propionate 4-19 } [place] [facility] 50 00:00: each [place] mcg/actuati 00 nostril in Me dical on nasal the Branch spray morning. fluticasone 2022-0 Yes [id number] 1{spray Use 1 [facility] propionate 4-19 } [place] [facility] 50 00:00: each [place] mcg/actuati 00 nostril in Me dical on nasal the Branch spray morning. fluticasone 3-0 Yes [id number] 1{spray Use 1 [facility] propionate 4-19 } [place] [facility] 50 00:00: each [place] mcg/actuati 00 nostril in Me dical on nasal the Branch spray morning. fluticasone 3-0 Yes [id number] 1{spray Use 1 [facility] propionate 4-19 } [place] in [facility] 50 00:00: each [place] mcg/actuati 00 nostril in Me dical on nasal the Branch spray morning. fluticasone 3-0 Yes [id number] 1{spray Use 1 [facility] propionate 4-19 } [place] [facility] 50 00:00: each [place] mcg/actuati 00 nostril in Me dical on nasal the Branch spray morning. fluticasone 2023-0 Yes [id number] 1{spray Use 1 [facility] propionate 4-19 } [facility] 00:00: each [place] mcg/actuati 00 nostril in Me dical on nasal the Branch spray morning. fluticasone 2022-0 Yes [id number] 1{spray Use 1 [facility] propionate 4-19 } [facility] 00:00: each [place] mcg/actuati 00 nostril in Me dical on nasal the Branch spray morning. fluticasone 2022-0 Yes [id number] 1{spray Use 1 [facility] propionate 4-19 } [facility] 00:00: each [place] mcg/actuati 00 nostril in Me dical on nasal the Branch spray morning. fluticasone 2022-0 Yes [id number] 1{spray Use 1 [facility] propionate 4-19 } [facility] 00:00: each [place] mcg/actuati 00 nostril in Me dical on nasal the Branch spray morning. fluticasone 2022-0 Yes [id number] 1{spray Use 1 [facility] propionate 4-19 } [facility] 00:00: each [place] mcg/actuati 00 nostril in Me dical on nasal the Branch spray morning. fluticasone 2022-0 Yes [id number] 1{spray Use 1 [facility] propionate 4-19 } [facility] 00:00: each [place] mcg/actuati 00 nostril in Me dical on nasal the Branch spray morning. fluticasone 2022-0 Yes [id number] 1{spray Use 1 [facility] propionate 4-19 } [facility] 00:00: each [place] mcg/actuati 00 nostril in Me dical on nasal the Branch spray morning. fluticasone 2022-0 Yes [id number] 1{spray Use 1 [facility] propionate 4-19 } [facility] 00:00: each [place] mcg/actuati 00 nostril in Me dical on nasal the Branch spray morning. fluticasone 2022-0 Yes [id number] 1{spray Use 1 [facility] propionate 4-19 } [facility] 00:00: each [place] mcg/actuati 00 nostril in Me dical on nasal the Branch spray morning. fluticasone 2022-0 Yes [id number] 1{spray Use 1 [facility] propionate 4-19 } [place] [facility] 50 00:00: each [place] mcg/actuati 00 nostril in Me dical on nasal the Branch spray morning. fluticasone 2022-0 Yes [id number] 1{spray Use 1 [facility] propionate 4-19 } [place] [facility] 50 00:00: each [place] mcg/actuati 00 nostril in Me dical on nasal the Branch spray morning. fluticasone 2022-0 Yes [id number] 1{spray Use 1 [facility] propionate 4-19 } [place] [facility] 50 00:00: each [place] mcg/actuati 00 nostril in Me dical on nasal the Branch spray morning. fluticasone 2022-0 Yes [id number] 1{spray Use 1 [facility] propionate 4-19 } [place] [facility] 50 00:00: each [place] mcg/actuati 00 nostril in Me dical on nasal the Branch spray morning. fluticasone 2022-0 Yes [id number] 1{spray Use 1 [facility] propionate 4-19 } [place] [facility] 50 00:00: each [place] mcg/actuati 00 nostril in Me dical on nasal the Branch spray morning. fluticasone 2022-0 Yes [id number] 1{spray Use 1 [facility] propionate 4-19 } [place] [facility] 50 00:00: each [place] mcg/actuati 00 nostril in Me dical on nasal the Branch spray morning. fluticasone 2022-0 Yes [id number] 1{spray Use 1 [facility] propionate 4-19 } [place] [facility] 50 00:00: each [place] mcg/actuati 00 nostril in Me dical on nasal the Branch spray morning. fluticasone 2022-0 Yes [id number] 1{spray Use 1 [facility] propionate 4-19 } [place] [facility] 50 00:00: each [place] mcg/actuati 00 nostril in Me dical on nasal the Branch spray morning. fluticasone 2022-0 Yes [id number] 1{spray Use 1 [facility] propionate 4-19 } [place] [facility] 50 00:00: each [place] mcg/actuati 00 nostril in Me dical on nasal the Branch spray morning. fluticasone 2022-0 Yes [id number] 1{spray Use 1 [facility] propionate 4-19 } [place] [facility] 00:00: each [place] mcg/actuati 00 nostril in Me dical on nasal the Branch spray morning. fluticasone 2022-0 Yes [id number] 1{spray Use 1 [facility] propionate 4-19 } [place] [facility] 50 00:00: each [place] mcg/actuati 00 nostril in Me dical on nasal the Branch spray morning. fluticasone 2022-0 Yes [id number] 1{spray Use 1 [facility] propionate 4-19 } [place] [facility] 50 00:00: each [place] mcg/actuati 00 nostril in Me dical on nasal the Branch spray morning. fluticasone 2022-0 Yes [id number] 1{spray Use 1 [facility] propionate 4-19 } [place] [facility] 50 00:00: each [place] mcg/actuati 00 nostril in Me dical on nasal the Branch spray morning. fluticasone 2022-0 Yes [id number] 1{spray Use 1 [facility] propionate 4-19 } [place] [facility] 50 00:00: each [place] mcg/actuati 00 nostril in Me dical on nasal the Branch spray morning. fluticasone 2022-0 Yes [id number] 1{spray Use 1 [facility] propionate 4-19 } [place] [facility] 50 00:00: each [place] mcg/actuati 00 nostril in Me dical on nasal the Branch spray morning. fluticasone 2022-0 Yes [id number] 1{spray Use 1 [facility] propionate 4-19 } [place] [facility] 50 00:00: each [place] mcg/actuati 00 nostril in Me dical on nasal the Branch spray morning. fluticasone 2022-0 Yes [id number] 1{spray Use 1 [facility] propionate 4-19 } [place] [facility] 50 00:00: each [place] mcg/actuati 00 nostril in Me dical on nasal the Branch spray morning. fluticasone 2022-0 Yes [id number] 1{spray Use 1 [facility] propionate 4-19 } [place] [facility] 50 00:00: each [place] mcg/actuati 00 nostril in Me dical on nasal the Branch spray morning. fluticasone 3-0 Yes [id number] 1{spray Use 1 [facility] propionate 4-19 } [place] [facility] 50 00:00: each [place] mcg/actuati 00 nostril in Me dical on nasal the Branch spray morning. fluticasone 2022-0 Yes [id number] 1{spray Use 1 [facility] propionate 4-19 } [place] [facility] 50 00:00: each [place] mcg/actuati 00 nostril in Me dical on nasal the Branch spray morning. fluticasone 2022-0 Yes [id number] 1{spray Use 1 [facility] propionate 4-19 } [place] [facility] 50 00:00: each [place] mcg/actuati 00 nostril in Me dical on nasal the Branch spray morning. fluticasone 2022-0 Yes [id number] 1{spray Use 1 [facility] propionate 4-19 } [place] [facility] 00:00: each [place] mcg/actuati 00 nostril in Me dical on nasal the Branch spray morning. fluticasone 2022-0 Yes [id number] 1{spray Use 1 [facility] propionate 4-19 } [place] [facility] 00:00: each [place] mcg/actuati 00 nostril in Me dical on nasal the Branch spray morning. fluticasone 2022-0 Yes [id number] 1{spray Use 1 [facility] propionate 4-19 } [place] [facility] 00:00: each [place] mcg/actuati 00 nostril in Me dical on nasal the Branch spray morning. fluticasone 2022-0 Yes [id number] 1{spray Use 1 [facility] propionate 4-19 } [place] [facility] 00:00: each [place] mcg/actuati 00 nostril in Me dical on nasal the Branch spray morning. fluticasone 2022-0 Yes [id number] 1{spray Use 1 [facility] propionate 4-19 } [place] [facility] 00:00: each [place] mcg/actuati 00 nostril in Me dical on nasal the Branch spray morning. fluticasone 3-0 Yes [id number] 1{spray Use 1 [facility] propionate 4-19 } [place] [facility] 00:00: each [place] mcg/actuati 00 nostril in Me dical on nasal the Branch spray morning. fluticasone 3-0 Yes [id number] 1{spray Use 1 [facility] propionate 4-19 } [place] [facility] 00:00: each [place] mcg/actuati 00 nostril in Me dical on nasal the Branch spray morning. fluticasone 2022-0 Yes [id number] 1{spray Use 1 [facility] propionate 4-19 } [place] [facility] 00:00: each [place] mcg/actuati 00 nostril in Me dical on nasal the Branch spray morning. fluticasone 2022-0 Yes [id number] 1{spray Use 1 [facility] propionate 4-19 } [place] [facility] 00:00: each [place] mcg/actuati 00 nostril in Me dical on nasal the Branch spray morning. fluticasone 2022-0 Yes [id number] 1{spray Use 1 [facility] propionate 4-19 } [place] [facility] 50 00:00: each [place] mcg/actuati 00 nostril in Me dical on nasal the Branch spray morning. fluticasone 2022-0 Yes [id number] 1{spray Use 1 [facility] propionate 4-19 } [place] [facility] 00:00: each [place] mcg/actuati 00 nostril in Me dical on nasal the Branch spray morning. fluticasone 2022-0 Yes [id number] 1{spray Use 1 [facility] propionate 4-19 } [place] in it o f 50 00:00: each [place] mcg/actuati 00 nostril in Me dical on nasal the Branch spray morning. fluticasone 2022-0 Yes [id number] 1{spray Use 1 [facility] propionate 4-19 } [place] in ity o f 50 00:00: each [place] mcg/actuati 00 nostril in Me dical on nasal the Branch spray morning. fluticasone 3-0 Yes [id number] 1{spray Use 1 [facility] propionate 4-19 } [place] in ity o f 50 00:00: each [place] mcg/actuati 00 nostril in Me dical on nasal the Branch spray morning. fluticasone 3-0 Yes [id number] 1{spray Use 1 [facility] propionate 4-19 } [place] in ity o f 50 00:00: each [place] mcg/actuati 00 nostril in Me dical on nasal the Branch spray morning. fluticasone 3-0 Yes [id number] 1{spray Use 1 [facility] propionate 4-19 } [place] in ity o f 50 00:00: each [place] mcg/actuati 00 nostril in Me dical on nasal the Branch spray morning. fluticasone 3-0 Yes [id number] 1{spray Use 1 [facility] propionate 4-19 } [place] in ity o f 50 00:00: each [place] mcg/actuati 00 nostril in Me dical on nasal the Branch spray morning. fluticasone 2022-0 Yes [id number] 1{spray Use 1 [facility] propionate 4-19 } [place] in ity o f 50 00:00: each [place] mcg/actuati 00 nostril in Me dical on nasal the Branch spray morning. fluticasone 2022-0 Yes [id number] 1{spray Use 1 [facility] propionate 4-19 } [place] in it o f 50 00:00: each [place] mcg/actuati 00 nostril in Me dical on nasal the Branch spray morning. fluticasone 2022-0 Yes [id number] 1{spray Use 1 [facility] propionate 4-19 } [place] in ity o f 50 00:00: each [place] mcg/actuati 00 nostril in Me dical on nasal the Branch spray morning. fluticasone 2022-0 Yes [id number] 1{spray Use 1 [facility] propionate 4-19 } [place] in ity o f 50 00:00: each [place] mcg/actuati 00 nostril in Me dical on nasal the Branch spray morning. fluticasone 2022-0 Yes [id number] 1{spray Use 1 [facility] propionate 4-19 } [place] in ity o f 50 00:00: each [place] mcg/actuati 00 nostril in Me dical on nasal the Branch spray morning. fluticasone 3-0 Yes [id number] 1{spray Use 1 [facility] propionate 4-19 } [place] in ity o f 50 00:00: each [place] mcg/actuati 00 nostril in Me dical on nasal the Branch spray morning. fluticasone 3-0 Yes [id number] 1{spray Use 1 [facility] propionate 4-19 } [place] in ity o f 50 00:00: each [place] mcg/actuati 00 nostril in Me dical on nasal the Branch spray morning. fluticasone 3-0 Yes [id number] 1{spray Use 1 [facility] propionate 4-19 } [place] in ity o f 50 00:00: each [place] mcg/actuati 00 nostril in Me dical on nasal the Branch spray morning. fluticasone 3-0 Yes [id number] 1{spray Use 1 [facility] propionate 4-19 } [place] in ity o f 50 00:00: each [place] mcg/actuati 00 nostril in Me dical on nasal the Branch spray morning. fluticasone 2022-0 Yes [id number] 1{spray Use 1 [facility] propionate 4-19 } [place] in ity o f 50 00:00: each [place] mcg/actuati 00 nostril in Me dical on nasal the Branch spray morning. fluticasone 2022-0 Yes [id number] 1{spray Use 1 [facility] propionate 4-19 } [place] in ity o f 50 00:00: each [place] mcg/actuati 00 nostril in Me dical on nasal the Branch spray morning. fluticasone 2022-0 Yes [id number] 1{spray Use 1 [facility] propionate 4-19 } [place] in ity o f 50 00:00: each [place] mcg/actuati 00 nostril in Me dical on nasal the Branch spray morning. fluticasone 2022-0 Yes [id number] 1{spray Use 1 [facility] propionate 4-19 } [place] in ity o f 50 00:00: each [place] mcg/actuati 00 nostril in Me dical on nasal the Branch spray morning. fluticasone 2022-0 Yes [id number] 1{spray Use 1 [facility] propionate 4-19 } [place] in ity o f 50 00:00: each [place] mcg/actuati 00 nostril in Me dical on nasal the Branch spray morning. fluticasone 3-0 Yes [id number] 1{spray Use 1 [facility] propionate 4-19 } [place] in ity o f 50 00:00: each [place] mcg/actuati 00 nostril in Me dical on nasal the Branch spray morning. fluticasone 2022-0 Yes [id number] 1{spray Use 1 [facility] propionate 4-19 } [place] in ity o f 50 00:00: each [place] mcg/actuati 00 nostril in Me dical on nasal the Branch spray morning. fluticasone 3-0 Yes [id number] 1{spray Use 1 [facility] propionate 4-19 } [place] in ity o f 50 00:00: each [place] mcg/actuati 00 nostril in Me dical on nasal the Branch spray morning. proMETHazin 3-0 Yes [id number] 25mg Take 2 [facility] e 12.5 mg 3-28 tablets by ity of tablet 00:00: mouth [place] 00 every 6 Medical (six) Branch hours as needed for Nausea and Vomiting (N/V). proMETHazin 2023-0 Yes [id number] 25mg Take 2 [facility] e 12.5 mg 3-28 tablets by ity of tablet 00:00: mouth [place] 00 every 6 Medical (six) Branch hours as needed for Nausea and Vomiting (N/V). proMETHazin 3-0 Yes [id number] 25mg Take 2 [facility] e 12.5 mg 3-28 tablets by ity of tablet 00:00: mouth [place] 00 every 6 Medical (six) Branch hours as needed for Nausea and Vomiting (N/V). proMETHazin 2023-0 Yes [id number] 25mg Take 2 [facility] e 12.5 mg 3-28 tablets by ity of tablet 00:00: mouth [place] 00 every 6 Medical (six) Branch hours as needed for Nausea and Vomiting (N/V). proMETHazin 2023-0 Yes [id number] 25mg Take 2 [facility] e 12.5 mg 3-28 tablets by ity of tablet 00:00: mouth [place] 00 every 6 Medical (six) Branch hours as needed for Nausea and Vomiting (N/V). proMETHazin 2023-0 Yes [id number] 25mg Take 2 [facility] e 12.5 mg 3-28 tablets by ity of tablet 00:00: mouth [place] 00 every 6 Medical (six) Branch hours as needed for Nausea and Vomiting (N/V). proMETHazin 2023-0 Yes [id number] 25mg Take 2 [facility] e 12.5 mg 3-28 tablets by ity of tablet 00:00: mouth [place] 00 every 6 Medical (six) Branch hours as needed for Nausea and Vomiting (N/V). proMETHazin 2023-0 Yes [id number] 25mg Take 2 [facility] e 12.5 mg 3-28 tablets by ity of tablet 00:00: mouth [place] 00 every 6 Medical (six) Branch hours as needed for Nausea and Vomiting (N/V). proMETHazin 2023-0 Yes [id number] 25mg Take 2 [facility] e 12.5 mg 3-28 tablets by ity of tablet 00:00: mouth [place] 00 every 6 Medical (six) Branch hours as needed for Nausea and Vomiting (N/V). proMETHazin 2023-0 Yes [id number] 25mg Take 2 [facility] e 12.5 mg 3-28 tablets by ity of tablet 00:00: mouth [place] 00 every 6 Medical (six) Branch hours as needed for Nausea and Vomiting (N/V). proMETHazin 2023-0 Yes [id number] 25mg Take 2 [facility] e 12.5 mg 3-28 tablets by ity of tablet 00:00: mouth [place] 00 every 6 Medical (six) Branch hours as needed for Nausea and Vomiting (N/V). proMETHazin 2023-0 Yes [id number] 25mg Take 2 [facility] e 12.5 mg 3-28 tablets by ity of tablet 00:00: mouth [place] 00 every 6 Medical (six) Branch hours as needed for Nausea and Vomiting (N/V). proMETHazin 2023-0 Yes [id number] 25mg Take 2 [facility] e 12.5 mg 3-28 tablets by ity of tablet 00:00: mouth [place] 00 every 6 Medical (six) Branch hours as needed for Nausea and Vomiting (N/V). proMETHazin 2023-0 Yes [id number] 25mg Take 2 [facility] e 12.5 mg 3-28 tablets by ity of tablet 00:00: mouth [place] 00 every 6 Medical (six) Branch hours as needed for Nausea and Vomiting (N/V). proMETHazin 2023-0 Yes [id number] 25mg Take 2 [facility] e 12.5 mg 3-28 tablets by ity of tablet 00:00: mouth [place] 00 every 6 Medical (six) Branch hours as needed for Nausea and Vomiting (N/V). proMETHazin 2023-0 Yes [id number] 25mg Take 2 [facility] e 12.5 mg 3-28 tablets by ity of tablet 00:00: mouth [place] 00 every 6 Medical (six) Branch hours as needed for Nausea and Vomiting (N/V). proMETHazin 2023-0 Yes [id number] 25mg Take 2 [facility] e 12.5 mg 3-28 tablets by ity of tablet 00:00: mouth [place] 00 every 6 Medical (six) Branch hours as needed for Nausea and Vomiting (N/V). proMETHazin 2023-0 Yes [id number] 25mg Take 2 [facility] e 12.5 mg 3-28 tablets by ity of tablet 00:00: mouth [place] 00 every 6 Medical (six) Branch hours as needed for Nausea and Vomiting (N/V). proMETHazin 2023-0 Yes [id number] 25mg Take 2 [facility] e 12.5 mg 3-28 tablets by ity of tablet 00:00: mouth [place] 00 every 6 Medical (six) Branch hours as needed for Nausea and Vomiting (N/V). proMETHazin 2023-0 Yes [id number] 25mg Take 2 [facility] e 12.5 mg 3-28 tablets by ity of tablet 00:00: mouth [place] 00 every 6 Medical (six) Branch hours as needed for Nausea and Vomiting (N/V). proMETHazin 2023-0 Yes [id number] 25mg Take 2 [facility] e 12.5 mg 3-28 tablets by ity of tablet 00:00: mouth [place] 00 every 6 Medical (six) Branch hours as needed for Nausea and Vomiting (N/V). proMETHazin 2023-0 Yes [id number] 25mg Take 2 [facility] e 12.5 mg 3-28 tablets by ity of tablet 00:00: mouth [place] 00 every 6 Medical (six) Branch hours as needed for Nausea and Vomiting (N/V). proMETHazin 2023-0 Yes [id number] 25mg Take 2 [facility] e 12.5 mg 3-28 tablets by ity of tablet 00:00: mouth [place] 00 every 6 Medical (six) Branch hours as needed for Nausea and Vomiting (N/V). proMETHazin 2023-0 Yes [id number] 25mg Take 2 [facility] e 12.5 mg 3-28 tablets by ity of tablet 00:00: mouth [place] 00 every 6 Medical (six) Branch hours as needed for Nausea and Vomiting (N/V). proMETHazin 2023-0 Yes [id number] 25mg Take 2 [facility] e 12.5 mg 3-28 tablets by ity of tablet 00:00: mouth [place] 00 every 6 Medical (six) Branch hours as needed for Nausea and Vomiting (N/V). proMETHazin 2023-0 Yes [id number] 25mg Take 2 [facility] e 12.5 mg 3-28 tablets by ity of tablet 00:00: mouth [place] 00 every 6 Medical (six) Branch hours as needed for Nausea and Vomiting (N/V). proMETHazin 2023-0 Yes [id number] 25mg Take 2 [facility] e 12.5 mg 3-28 tablets by ity of tablet 00:00: mouth [place] 00 every 6 Medical (six) Branch hours as needed for Nausea and Vomiting (N/V). proMETHazin 2023-0 Yes [id number] 25mg Take 2 [facility] e 12.5 mg 3-28 tablets by ity of tablet 00:00: mouth [place] 00 every 6 Medical (six) Branch hours as needed for Nausea and Vomiting (N/V). proMETHazin 2023-0 Yes [id number] 25mg Take 2 [facility] e 12.5 mg 3-28 tablets by ity of tablet 00:00: mouth [place] 00 every 6 Medical (six) Branch hours as needed for Nausea and Vomiting (N/V). proMETHazin 2023-0 Yes [id number] 25mg Take 2 [facility] e 12.5 mg 3-28 tablets by ity of tablet 00:00: mouth [place] 00 every 6 Medical (six) Branch hours as needed for Nausea and Vomiting (N/V). proMETHazin 2023-0 Yes [id number] 25mg Take 2 [facility] e 12.5 mg 3-28 tablets by ity of tablet 00:00: mouth [place] 00 every 6 Medical (six) Branch hours as needed for Nausea and Vomiting (N/V). proMETHazin 2023-0 Yes [id number] 25mg Take 2 [facility] e 12.5 mg 3-28 tablets by ity of tablet 00:00: mouth [place] 00 every 6 Medical (six) Branch hours as needed for Nausea and Vomiting (N/V). proMETHazin 2023-0 Yes [id number] 25mg Take 2 [facility] e 12.5 mg 3-28 tablets by ity of tablet 00:00: mouth [place] 00 every 6 Medical (six) Branch hours as needed for Nausea and Vomiting (N/V). proMETHazin 2023-0 Yes [id number] 25mg Take 2 [facility] e 12.5 mg 3-28 tablets by ity of tablet 00:00: mouth [place] 00 every 6 Medical (six) Branch hours as needed for Nausea and Vomiting (N/V). proMETHazin 2023-0 Yes [id number] 25mg Take 2 [facility] e 12.5 mg 3-28 tablets by ity of tablet 00:00: mouth [place] 00 every 6 Medical (six) Branch hours as needed for Nausea and Vomiting (N/V). proMETHazin 2023-0 Yes [id number] 25mg Take 2 [facility] e 12.5 mg 3-28 tablets by ity of tablet 00:00: mouth [place] 00 every 6 Medical (six) Branch hours as needed for Nausea and Vomiting (N/V). proMETHazin 2023-0 Yes [id number] 25mg Take 2 [facility] e 12.5 mg 3-28 tablets by ity of tablet 00:00: mouth [place] 00 every 6 Medical (six) Branch hours as needed for Nausea and Vomiting (N/V). proMETHazin 2023-0 Yes [id number] 25mg Take 2 [facility] e 12.5 mg 3-28 tablets by ity of tablet 00:00: mouth [place] 00 every 6 Medical (six) Branch hours as needed for Nausea and Vomiting (N/V). proMETHazin 2023-0 Yes [id number] 25mg Take 2 [facility] e 12.5 mg 3-28 tablets by ity of tablet 00:00: mouth [place] 00 every 6 Medical (six) Branch hours as needed for Nausea and Vomiting (N/V). proMETHazin 2023-0 Yes [id number] 25mg Take 2 [facility] e 12.5 mg 3-28 tablets by ity of tablet 00:00: mouth [place] 00 every 6 Medical (six) Branch hours as needed for Nausea and Vomiting (N/V). proMETHazin 2023-0 Yes [id number] 25mg Take 2 [facility] e 12.5 mg 3-28 tablets by ity of tablet 00:00: mouth [place] 00 every 6 Medical (six) Branch hours as needed for Nausea and Vomiting (N/V). proMETHazin 2023-0 Yes [id number] 25mg Take 2 [facility] e 12.5 mg 3-28 tablets by ity of tablet 00:00: mouth [place] 00 every 6 Medical (six) Branch hours as needed for Nausea and Vomiting (N/V). proMETHazin 3-0 Yes [id number] 25mg Take 2 [facility] e 12.5 mg 3-28 tablets by ity of tablet 00:00: mouth [place] 00 every 6 Medical (six) Branch hours as needed for Nausea and Vomiting (N/V). proMETHazin 3-0 Yes [id number] 25mg Take 2 [facility] e 12.5 mg 3-28 tablets by ity of tablet 00:00: mouth [place] 00 every 6 Medical (six) Branch hours as needed for Nausea and Vomiting (N/V). proMETHazin 2022-0 3- No [id number] 25mg Take 2 [facility] e 12.5 mg 3-28 06-15 tablets by ity of tablet 00:00: 00:00 mouth [place] 00 :00 every 6 Medical (six) Branch hours as needed for Nausea and Vomiting (N/V). proMETHazin 2022-0 3- No [id number] 25mg Take 2 [facility] e 12.5 mg 3-28 06-15 tablets by ity of tablet 00:00: 00:00 mouth [place] 00 :00 every 6 Medical (six) Branch hours as needed for Nausea and Vomiting (N/V). proMETHazin 2022-0 3- No [id number] 25mg Take 2 [facility] e 12.5 mg 3-28 06-15 tablets by ity of tablet 00:00: 00:00 mouth [place] 00 :00 every 6 Medical (six) Branch hours as needed for Nausea and Vomiting (N/V). proMETHazin 2022-0 3- No [id number] 25mg Take 2 [facility] e 12.5 mg 3-28 06-15 tablets by ity of tablet 00:00: 00:00 mouth [place] 00 :00 every 6 Medical (six) Branch hours as needed for Nausea and Vomiting (N/V). proMETHazin 2022-0 3- No [id number] 25mg Take 2 [facility] e 12.5 mg 3-28 06-15 tablets by ity of tablet 00:00: 00:00 mouth [place] 00 :00 every 6 Medical (six) Branch hours as needed for Nausea and Vomiting (N/V). semaglutide 2022-0 Yes [id number] 1mg inject 1 [facility] (OZEMPIC) 1 3-20 mg under ity of mg/dose (4 00:00: the skin [place] mg/3 mL) 00 weekly. [facility] semaglutide 2022-0 Yes [id number] 1mg inject 1 [facility] (OZEMPIC) 1 3-20 mg under ity of mg/dose (4 00:00: the skin [place] mg/3 mL) 00 weekly. [facility] semaglutide 2022-0 Yes [id number] 1mg inject 1 [facility] (OZEMPIC) 1 3-20 mg under ity of mg/dose (4 00:00: the skin [place] mg/3 mL) 00 weekly. [facility] semaglutide 2022-0 Yes [id number] 1mg inject 1 [facility] (OZEMPIC) 1 3-20 mg under ity of mg/dose (4 00:00: the skin [place] mg/3 mL) 00 weekly. [facility] semaglutide 2022-0 Yes [id number] 1mg inject 1 [facility] (OZEMPIC) 1 3-20 mg under ity of mg/dose (4 00:00: the skin [place] mg/3 mL) 00 weekly. [facility] semaglutide 2022-0 Yes [id number] 1mg inject 1 [facility] (OZEMPIC) 1 3-20 mg under ity of mg/dose (4 00:00: the skin [place] mg/3 mL) 00 weekly. [facility] semaglutide 2022-0 Yes [id number] 1mg inject 1 [facility] (OZEMPIC) 1 3-20 mg under ity of mg/dose (4 00:00: the skin [place] mg/3 mL) 00 weekly. [facility] semaglutide 2022-0 Yes [id number] 1mg inject 1 [facility] (OZEMPIC) 1 3-20 mg under ity of mg/dose (4 00:00: the skin [place] mg/3 mL) 00 weekly. [facility] semaglutide 2022-0 Yes [id number] 1mg inject 1 [facility] (OZEMPIC) 1 3-20 mg under ity of mg/dose (4 00:00: the skin [place] mg/3 mL) 00 weekly. [facility] semaglutide 2022-0 Yes [id number] 1mg inject 1 [facility] (OZEMPIC) 1 3-20 mg under ity of mg/dose (4 00:00: the skin [place] mg/3 mL) 00 weekly. [facility] semaglutide 2022-0 Yes [id number] 1mg inject 1 [facility] (OZEMPIC) 1 3-20 mg under ity of mg/dose (4 00:00: the skin [place] mg/3 mL) 00 weekly. [facility] semaglutide 2022-0 Yes [id number] 1mg inject 1 [facility] (OZEMPIC) 1 3-20 mg under ity of mg/dose (4 00:00: the skin [place] mg/3 mL) 00 weekly. [facility] semaglutide 2022-0 Yes [id number] 1mg inject 1 [facility] (OZEMPIC) 1 3-20 mg under ity of mg/dose (4 00:00: the skin [place] mg/3 mL) 00 weekly. [facility] semaglutide 2022-0 Yes [id number] 1mg inject 1 [facility] (OZEMPIC) 1 3-20 mg under ity of mg/dose (4 00:00: the skin [place] mg/3 mL) 00 weekly. [facility] semaglutide 2022-0 Yes [id number] 1mg inject 1 [facility] (OZEMPIC) 1 3-20 mg under ity of mg/dose (4 00:00: the skin [place] mg/3 mL) 00 weekly. [facility] semaglutide 2022-0 Yes [id number] 1mg inject 1 [facility] (OZEMPIC) 1 3-20 mg under ity of mg/dose (4 00:00: the skin [place] mg/3 mL) 00 weekly. [facility] semaglutide 2022-0 Yes [id number] 1mg inject 1 [facility] (OZEMPIC) 1 3-20 mg under ity of mg/dose (4 00:00: the skin [place] mg/3 mL) 00 weekly. [facility] semaglutide 2022-0 Yes [id number] 1mg inject 1 [facility] (OZEMPIC) 1 3-20 mg under ity of mg/dose (4 00:00: the skin [place] mg/3 mL) 00 weekly. [facility] semaglutide 2022-0 Yes [id number] 1mg inject 1 [facility] (OZEMPIC) 1 3-20 mg under ity of mg/dose (4 00:00: the skin [place] mg/3 mL) 00 weekly. [facility] semaglutide 2022-0 Yes [id number] 1mg inject 1 [facility] (OZEMPIC) 1 3-20 mg under ity of mg/dose (4 00:00: the skin [place] mg/3 mL) 00 weekly. [facility] semaglutide 2022-0 Yes [id number] 1mg inject 1 [facility] (OZEMPIC) 1 3-20 mg under ity of mg/dose (4 00:00: the skin [place] mg/3 mL) 00 weekly. [facility] semaglutide 2022-0 Yes [id number] 1mg inject 1 [facility] (OZEMPIC) 1 3-20 mg under ity of mg/dose (4 00:00: the skin [place] mg/3 mL) 00 weekly. [facility] semaglutide 2022-0 Yes [id number] 1mg inject 1 [facility] (OZEMPIC) 1 3-20 mg under ity of mg/dose (4 00:00: the skin [place] mg/3 mL) 00 weekly. [facility] semaglutide 2022-0 Yes [id number] 1mg inject 1 [facility] (OZEMPIC) 1 3-20 mg under ity of mg/dose (4 00:00: the skin [place] mg/3 mL) 00 weekly. [facility] semaglutide 2022-0 Yes [id number] 1mg inject 1 [facility] (OZEMPIC) 1 3-20 mg under ity of mg/dose (4 00:00: the skin [place] mg/3 mL) 00 weekly. [facility] semaglutide 2022-0 Yes [id number] 1mg inject 1 [facility] (OZEMPIC) 1 3-20 mg under ity of mg/dose (4 00:00: the skin [place] mg/3 mL) 00 weekly. [facility] semaglutide 2022-0 Yes [id number] 1mg inject 1 [facility] (OZEMPIC) 1 3-20 mg under ity of mg/dose (4 00:00: the skin [place] mg/3 mL) 00 weekly. [facility] semaglutide 2022-0 Yes [id number] 1mg inject 1 [facility] (OZEMPIC) 1 3-20 mg under ity of mg/dose (4 00:00: the skin [place] mg/3 mL) 00 weekly. [facility] semaglutide 2022-0 Yes [id number] 1mg inject 1 [facility] (OZEMPIC) 1 3-20 mg under ity of mg/dose (4 00:00: the skin [place] mg/3 mL) 00 weekly. [facility] semaglutide 2022-0 Yes [id number] 1mg inject 1 [facility] (OZEMPIC) 1 3-20 mg under ity of mg/dose (4 00:00: the skin [place] mg/3 mL) 00 weekly. [facility] semaglutide 2022-0 Yes [id number] 1mg inject 1 [facility] (OZEMPIC) 1 3-20 mg under ity of mg/dose (4 00:00: the skin [place] mg/3 mL) 00 weekly. [facility] semaglutide 2022-0 Yes [id number] 1mg inject 1 [facility] (OZEMPIC) 1 3-20 mg under ity of mg/dose (4 00:00: the skin [place] mg/3 mL) 00 weekly. [facility] semaglutide 2022-0 Yes [id number] 1mg inject 1 [facility] (OZEMPIC) 1 3-20 mg under ity of mg/dose (4 00:00: the skin [place] mg/3 mL) 00 weekly. [facility] semaglutide 2022-0 Yes [id number] 1mg inject 1 [facility] (OZEMPIC) 1 3-20 mg under ity of mg/dose (4 00:00: the skin [place] mg/3 mL) 00 weekly. [facility] semaglutide 2022-0 Yes [id number] 1mg inject 1 [facility] (OZEMPIC) 1 3-20 mg under ity of mg/dose (4 00:00: the skin [place] mg/3 mL) 00 weekly. [facility] semaglutide 2022-0 Yes [id number] 1mg inject 1 [facility] (OZEMPIC) 1 3-20 mg under ity of mg/dose (4 00:00: the skin [place] mg/3 mL) 00 weekly. [facility] semaglutide 2022-0 Yes [id number] 1mg inject 1 [facility] (OZEMPIC) 1 3-20 mg under ity of mg/dose (4 00:00: the skin [place] mg/3 mL) 00 weekly. [facility] semaglutide Yes [id number] 1mg inject 1 [facility] (OZEMPIC) 1 3-20 mg under ity of mg/dose (4 00:00: the skin [place] mg/3 mL) 00 weekly. [facility] semaglutide Yes [id number] 1mg inject 1 [facility] (OZEMPIC) 1 3-20 mg under ity of mg/dose (4 00:00: the skin [place] mg/3 mL) 00 weekly. [facility] semaglutide Yes [id number] 1mg inject 1 [facility] (OZEMPIC) 1 3-20 mg under ity of mg/dose (4 00:00: the skin [place] mg/3 mL) 00 weekly. [facility] semaglutide 2022- No [id number] 1mg inject 1 [facility] (OZEMPIC) 1 3-20 06-09 mg under ity of mg/dose (4 00:00: 00:00 the skin [place] mg/3 mL) 00 :00 weekly. [facility] semaglutide 2022- No [id number] 1mg inject 1 [facility] (OZEMPIC) 1 3-20 06-09 mg under ity of mg/dose (4 00:00: 00:00 the skin [place] mg/3 mL) 00 :00 weekly. [facility] semaglutide 2022- No [id number] 1mg inject 1 [facility] (OZEMPIC) 1 3-20 06-09 mg under ity of mg/dose (4 00:00: 00:00 the skin [place] mg/3 mL) 00 :00 weekly. [facility] semaglutide 2022- No [id number] 1mg inject 1 [facility] (OZEMPIC) 1 3-20 06-09 mg under ity of mg/dose (4 00:00: 00:00 the skin [place] mg/3 mL) 00 :00 weekly. [facility] semaglutide 2022- No [id number] 1mg inject 1 [facility] (OZEMPIC) 1 3-20 06-09 mg under ity of mg/dose (4 00:00: 00:00 the skin [place] mg/3 mL) 00 :00 weekly. [facility] semaglutide 2022- No [id number] 1mg inject 1 [facility] (OZEMPIC) 1 3-20 06-09 mg under ity of mg/dose (4 00:00: 00:00 the skin [place] mg/3 mL) 00 :00 weekly. [facility] semaglutide 2022- No [id number] 1mg inject 1 [facility] (OZEMPIC) 1 3-20 06-09 mg under ity of mg/dose (4 00:00: 00:00 the skin [place] mg/3 mL) 00 :00 weekly. [facility] semaglutide 2022- No [id number] 1mg inject 1 [facility] (OZEMPIC) 1 3-20 06-09 mg under ity of mg/dose (4 00:00: 00:00 the skin [place] mg/3 mL) 00 :00 weekly. [facility] Branch albuterol Yes [id number] 2{puff} Inhale 2 [facility] 90 3-16 Puffs ity of mcg/actuati 00:00: every 6 [place] as on inhaler 00 (six) Medical hours as Branch needed for Wheezing or Shortness of Breath. glyBURIDE 5 Yes [id number] TAKE 1 [facility] mg tablet 3-16 TABLET BY ity o f 00:00: MOUTH [place] 00 TWICE Medical DAILY Branch (NEEDS FOLLOW UP VISIT FOR FURTHER REFILLS albuterol Yes [id number] 2{puff} Inhale 2 [facility] 90 3-16 Puffs ity of mcg/actuati 00:00: every 6 [place] as on inhaler 00 (six) Medical hours as Branch needed for Wheezing or Shortness of Breath. glyBURIDE 5 Yes [id number] TAKE 1 [facility] mg tablet 3-16 TABLET BY ity o f 00:00: MOUTH [place] 00 TWICE Medical DAILY Branch (NEEDS FOLLOW UP VISIT FOR FURTHER REFILLS albuterol Yes [id number] 2{puff} Inhale 2 [facility] 90 3-16 Puffs ity of mcg/actuati 00:00: every 6 [place] as on inhaler 00 (six) Medical hours as Branch needed for Wheezing or Shortness of Breath. albuterol Yes [id number] 2{puff} Inhale 2 [facility] 90 3-16 Puffs ity of mcg/actuati 00:00: every 6 [place] as on inhaler 00 (six) Medical hours as Branch needed for Wheezing or Shortness of Breath. glyBURIDE 5 Yes [id number] TAKE 1 [facility] mg tablet 3-16 TABLET BY ity o f 00:00: MOUTH [place] 00 TWICE Medical DAILY Branch (NEEDS FOLLOW UP VISIT FOR FURTHER REFILLS albuterol Yes [id number] 2{puff} Inhale 2 [facility] 90 3-16 Puffs ity of mcg/actuati 00:00: every 6 [place] as on inhaler 00 (six) Medical hours as Branch needed for Wheezing or Shortness of Breath. albuterol Yes [id number] 2{puff} Inhale 2 [facility] 90 3-16 Puffs ity of mcg/actuati 00:00: every 6 [place] as on inhaler 00 (six) Medical hours as Branch needed for Wheezing or Shortness of Breath. glyBURIDE 5 Yes [id number] TAKE 1 [facility] mg tablet 3-16 TABLET BY ity o f 00:00: MOUTH [place] 00 TWICE [facility] DAILY [facility] (NEEDS FOLLOW UP VISIT FOR FURTHER REFILLS albuterol Yes [id number] 2{puff} Inhale 2 [facility] 90 3-16 Puffs [facility] of mcg/actuati 00:00: every 6 [place] as on inhaler 00 (six) Medical hours as Branch needed for Wheezing or Shortness of Breath. glyBURIDE 5 Yes [id number] TAKE 1 [facility] mg tablet 3-16 TABLET BY ity o f 00:00: MOUTH [place] 00 TWICE Medical DAILY Branch (NEEDS FOLLOW UP VISIT FOR FURTHER REFILLS albuterol Yes [id number] 2{puff} Inhale 2 [facility] 90 3-16 Puffs [facility] of mcg/actuati 00:00: every 6 [place] as on inhaler 00 (six) Medical hours as Branch needed for Wheezing or Shortness of Breath. glyBURIDE 5 Yes [id number] TAKE 1 [facility] mg tablet 3-16 TABLET BY it[facility] o f 00:00: MOUTH [place] 00 TWICE Medical DAILY [facility] (NEEDS FOLLOW UP VISIT FOR FURTHER REFILLS albuterol Yes [id number] 2{puff} Inhale 2 [facility] 90 3-16 Puffs [facility] of mcg/actuati 00:00: every 6 [place] as on inhaler 00 (six) Medical hours as Branch needed for Wheezing or Shortness of Breath. glyBURIDE 5 Yes [id number] TAKE 1 [facility] mg tablet 3-16 TABLET BY ity o f 00:00: MOUTH [place] 00 TWICE Medical DAILY Branch (NEEDS FOLLOW UP VISIT FOR FURTHER REFILLS albuterol Yes [id number] 2{puff} Inhale 2 [facility] 90 3-16 Puffs [facility] of mcg/actuati 00:00: every 6 [place] as on inhaler 00 (six) Medical hours as Branch needed for Wheezing or Shortness of Breath. glyBURIDE Yes [id number] TAKE 1 [facility] mg tablet 3-16 TABLET BY it[facility] o f 00:00: MOUTH [place] 00 TWICE Medical DAILY [facility] (NEEDS FOLLOW UP VISIT FOR FURTHER REFILLS albuterol Yes [id number] 2{puff} Inhale 2 [facility] 90 3-16 Puffs [facility] of mcg/actuati 00:00: every 6 [place] as on inhaler 00 (six) Medical hours as Branch needed for Wheezing or Shortness of Breath. glyBURIDE 5 Yes [id number] TAKE 1 [facility] mg tablet 3-16 TABLET BY [facility] o f 00:00: MOUTH [place] TWICE Medical DAILY [facility] (NEEDS FOLLOW UP VISIT FOR FURTHER REFILLS albuterol Yes [id number] 2{puff} Inhale 2 [facility] 90 3-16 Puffs [facility] of mcg/actuati 00:00: every 6 [place] as on inhaler 00 (six) Medical hours as Branch needed for Wheezing or Shortness of Breath. glyBURIDE 5 Yes [id number] TAKE 1 [facility] mg tablet 3-16 TABLET BY [facility] o f 00:00: MOUTH [place] 00 TWICE Medical DAILY Branch (NEEDS FOLLOW UP VISIT FOR FURTHER REFILLS albuterol Yes [id number] 2{puff} Inhale 2 [facility] 90 3-16 Puffs [facility] of mcg/actuati 00:00: every 6 [place] as on inhaler 00 (six) Medical hours as Branch needed for Wheezing or Shortness of Breath. glyBURIDE 5 Yes [id number] TAKE 1 [facility] mg tablet 3-16 TABLET BY [facility] o f 00:00: MOUTH [place] 00 TWICE Medical DAILY [facility] (NEEDS FOLLOW UP VISIT FOR FURTHER REFILLS albuterol Yes [id number] 2{puff} Inhale 2 [facility] 90 3-16 Puffs [facility] of mcg/actuati 00:00: every 6 [place] as on inhaler 00 (six) Medical hours as Branch needed for Wheezing or Shortness of Breath. glyBURIDE 5 Yes [id number] TAKE 1 [facility] mg tablet 3-16 TABLET BY it[facility] o f 00:00: MOUTH [place] 00 TWICE Medical DAILY [facility] (NEEDS FOLLOW UP VISIT FOR FURTHER REFILLS albuterol Yes [id number] 2{puff} Inhale 2 [facility] 90 3-16 Puffs [facility] of mcg/actuati 00:00: every 6 [place] as on inhaler 00 (six) Medical hours as Branch needed for Wheezing or Shortness of Breath. glyBURIDE Yes [id number] TAKE 1 [facility] mg tablet 3-16 TABLET BY [facility] o f 00:00: MOUTH [place] 00 TWICE Medical DAILY [facility] (NEEDS FOLLOW UP VISIT FOR FURTHER REFILLS albuterol Yes [id number] 2{puff} Inhale 2 [facility] 90 3-16 Puffs [facility] of mcg/actuati 00:00: every 6 [place] as on inhaler 00 (six) Medical hours as Branch needed for Wheezing or Shortness of Breath. glyBURIDE 5 Yes [id number] TAKE 1 [facility] mg tablet 3-16 TABLET BY it[facility] o f 00:00: MOUTH [place] 00 TWICE Medical DAILY [facility] (NEEDS FOLLOW UP VISIT FOR FURTHER REFILLS albuterol Yes [id number] 2{puff} Inhale 2 [facility] 90 3-16 Puffs [facility] of mcg/actuati 00:00: every 6 [place] as on inhaler 00 (six) Medical hours as Branch needed for Wheezing or Shortness of Breath. glyBURIDE 5 Yes [id number] TAKE 1 [facility] mg tablet 3-16 TABLET BY it[facility] o f 00:00: MOUTH [place] TWICE Medical DAILY Branch (NEEDS FOLLOW UP VISIT FOR FURTHER REFILLS albuterol Yes [id number] 2{puff} Inhale 2 [facility] 90 3-16 Puffs [facility] of mcg/actuati 00:00: every 6 [place] as on inhaler 00 (six) Medical hours as Branch needed for Wheezing or Shortness of Breath. glyBURIDE 5 Yes [id number] TAKE 1 [facility] mg tablet 3-16 TABLET BY it[facility] o f 00:00: MOUTH [place] TWICE Medical DAILY [facility] (NEEDS FOLLOW UP VISIT FOR FURTHER REFILLS albuterol Yes [id number] 2{puff} Inhale 2 [facility] 90 3-16 Puffs [facility] of mcg/actuati 00:00: every 6 [place] as on inhaler 00 (six) Medical hours as Branch needed for Wheezing or Shortness of Breath. glyBURIDE 5 Yes [id number] TAKE 1 [facility] mg tablet 3-16 TABLET BY it[facility] o f 00:00: MOUTH [facility] DAILY [facility] (NEEDS FOLLOW UP VISIT FOR FURTHER REFILLS albuterol Yes [id number] 2{puff} Inhale 2 [facility] 90 3-16 Puffs [facility] of mcg/actuati 00:00: every 6 [place] as on inhaler 00 (six) Medical hours as Branch needed for Wheezing or Shortness of Breath. glyBURIDE 5 Yes [id number] TAKE 1 [facility] mg tablet 3-16 TABLET BY it[facility] o f 00:00: MOUTH [place] TWICE Medical DAILY Branch (NEEDS FOLLOW UP VISIT FOR FURTHER REFILLS albuterol Yes [id number] 2{puff} Inhale 2 [facility] 90 3-16 Puffs [facility] of mcg/actuati 00:00: every 6 [place] as on inhaler 00 (six) Medical hours as Branch needed for Wheezing or Shortness of Breath. glyBURIDE 5 Yes [id number] TAKE 1 [facility] mg tablet 3-16 TABLET BY it[facility] o f 00:00: MOUTH [place] 00 TWICE Medical DAILY [facility] (NEEDS FOLLOW UP VISIT FOR FURTHER REFILLS albuterol Yes [id number] 2{puff} Inhale 2 [facility] 90 3-16 Puffs [facility] of mcg/actuati 00:00: every 6 [place] as on inhaler 00 (six) Medical hours as Branch needed for Wheezing or Shortness of Breath. glyBURIDE 5 2022-0 Yes [id number] TAKE 1 [facility] mg tablet 3-16 TABLET BY it[facility] o f 00:00: MOUTH [place] 00 TWICE Medical DAILY [facility] (NEEDS FOLLOW UP VISIT FOR FURTHER REFILLS albuterol Yes [id number] 2{puff} Inhale 2 [facility] 90 3-16 Puffs [facility] of mcg/actuati 00:00: every 6 [place] as on inhaler 00 (six) Medical hours as Branch needed for Wheezing or Shortness of Breath. glyBURIDE 5 2022-0 Yes [id number] TAKE 1 [facility] mg tablet 3-16 TABLET BY it[facility] o f 00:00: MOUTH [place] 00 TWICE Medical DAILY [facility] (NEEDS FOLLOW UP VISIT FOR FURTHER REFILLS albuterol Yes [id number] 2{puff} Inhale 2 [facility] 90 3-16 Puffs [facility] of mcg/actuati 00:00: every 6 [place] as on inhaler 00 (six) Medical hours as Branch needed for Wheezing or Shortness of Breath. glyBURIDE 5 Yes [id number] TAKE 1 [facility] mg tablet 3-16 TABLET BY it[facility] o f 00:00: MOUTH [place] 00 TWICE Medical DAILY [facility] (NEEDS FOLLOW UP VISIT FOR FURTHER REFILLS albuterol Yes [id number] 2{puff} Inhale 2 [facility] 90 3-16 Puffs [facility] of mcg/actuati 00:00: every 6 [place] as on inhaler 00 (six) Medical hours as Branch needed for Wheezing or Shortness of Breath. glyBURIDE 5 Yes [id number] TAKE 1 [facility] mg tablet 3-16 TABLET BY ity o f 00:00: MOUTH [place] 00 TWICE Medical DAILY [facility] (NEEDS FOLLOW UP VISIT FOR FURTHER REFILLS albuterol 2022-0 Yes [id number] 2{puff} Inhale 2 [facility] 90 3-16 Puffs [facility] of mcg/actuati 00:00: every 6 [place] as on inhaler 00 (six) Medical hours as Branch needed for Wheezing or Shortness of Breath. glyBURIDE 5 2022-0 Yes [id number] TAKE 1 [facility] mg tablet 3-16 TABLET BY ity o f 00:00: MOUTH [place] 00 TWICE Medical DAILY Branch (NEEDS FOLLOW UP VISIT FOR FURTHER REFILLS albuterol Yes [id number] 2{puff} Inhale 2 [facility] 90 3-16 Puffs [facility] of mcg/actuati 00:00: every 6 [place] as on inhaler 00 (six) Medical hours as Branch needed for Wheezing or Shortness of Breath. glyBURIDE 5 Yes [id number] TAKE 1 [facility] mg tablet 3-16 TABLET BY ity o f 00:00: MOUTH TW[facility] DAILY [facility] (NEEDS FOLLOW UP VISIT FOR FURTHER REFILLS albuterol Yes [id number] 2{puff} Inhale 2 [facility] 90 3-16 Puffs [facility] of mcg/actuati 00:00: every 6 [place] as on inhaler 00 (six) Medical hours as Branch needed for Wheezing or Shortness of Breath. glyBURIDE 5 Yes [id number] TAKE 1 [facility] mg tablet 3-16 TABLET BY ity o f 00:00: MOUTH TWICE [facility] DAILY [facility] (NEEDS FOLLOW UP VISIT FOR FURTHER REFILLS albuterol Yes [id number] 2{puff} Inhale 2 [facility] 90 3-16 Puffs [facility] of mcg/actuati 00:00: every 6 [place] as on inhaler 00 (six) Medical hours as Branch needed for Wheezing or Shortness of Breath. glyBURIDE 5 Yes [id number] TAKE 1 [facility] mg tablet 3-16 TABLET BY ity o f 00:00: MOUTH TWICE [facility] DAILY [facility] (NEEDS FOLLOW UP VISIT FOR FURTHER REFILLS albuterol Yes [id number] 2{puff} Inhale 2 [facility] 90 3-16 Puffs [facility] of mcg/actuati 00:00: every 6 [place] as on inhaler 00 (six) Medical hours as Branch needed for Wheezing or Shortness of Breath. glyBURIDE 5 Yes [id number] TAKE 1 [facility] mg tablet 3-16 TABLET BY ity o f 00:00: MOUTH TWICE [facility] DAILY [facility] (NEEDS FOLLOW UP VISIT FOR FURTHER REFILLS albuterol Yes [id number] 2{puff} Inhale 2 [facility] 90 3-16 Puffs [facility] of mcg/actuati 00:00: every 6 [place] as on inhaler 00 (six) Medical hours as Branch needed for Wheezing or Shortness of Breath. glyBURIDE 5 0 Yes [id number] TAKE 1 [facility] mg tablet 3-16 TABLET BY ity o f 00:00: MOUTH [place] 00 TWICE Medical DAILY Branch (NEEDS FOLLOW UP VISIT FOR FURTHER REFILLS albuterol Yes [id number] 2{puff} Inhale 2 [facility] 90 3-16 Puffs [facility] of mcg/actuati 00:00: every 6 [place] as on inhaler 00 (six) Medical hours as Branch needed for Wheezing or Shortness of Breath. glyBURIDE 5 2022-0 Yes [id number] TAKE 1 [facility] mg tablet 3-16 TABLET BY ity o f 00:00: MOUTH [place] 00 TWICE Medical DAILY Branch (NEEDS FOLLOW UP VISIT FOR FURTHER REFILLS albuterol Yes [id number] 2{puff} Inhale 2 [facility] 90 3-16 Puffs [facility] of mcg/actuati 00:00: every 6 [place] as on inhaler 00 (six) Medical hours as Branch needed for Wheezing or Shortness of Breath. glyBURIDE 5 Yes [id number] TAKE 1 [facility] mg tablet 3-16 TABLET BY ity o f 00:00: MOUTH [place] 00 TWICE Medical DAILY Branch (NEEDS FOLLOW UP VISIT FOR FURTHER REFILLS albuterol Yes [id number] 2{puff} Inhale 2 [facility] 90 3-16 Puffs [facility] of mcg/actuati 00:00: every 6 [place] as on inhaler 00 (six) Medical hours as Branch needed for Wheezing or Shortness of Breath. glyBURIDE 5 Yes [id number] TAKE 1 [facility] mg tablet 3-16 TABLET BY ity o f 00:00: MOUTH [place] 00 TWICE Medical DAILY Branch (NEEDS FOLLOW UP VISIT FOR FURTHER REFILLS albuterol 2022- Yes [id number] 2{puff} Inhale 2 [facility] 90 3-16 Puffs [facility] of mcg/actuati 00:00: every 6 [place] as on inhaler 00 (six) Medical hours as Branch needed for Wheezing or Shortness of Breath. glyBURIDE 5 2022-0 Yes [id number] TAKE 1 [facility] mg tablet 3-16 TABLET BY ity o f 00:00: MOUTH [place] 00 TWICE Medical DAILY Branch (NEEDS FOLLOW UP VISIT FOR FURTHER REFILLS albuterol Yes [id number] 2{puff} Inhale 2 [facility] 90 3-16 Puffs [facility] of mcg/actuati 00:00: every 6 [place] as on inhaler 00 (six) Medical hours as Branch needed for Wheezing or Shortness of Breath. glyBURIDE 5 Yes [id number] TAKE 1 [facility] mg tablet 3-16 TABLET BY ity o f 00:00: MOUTH [place] 00 TWICE Medical DAILY Branch (NEEDS FOLLOW UP VISIT FOR FURTHER REFILLS albuterol Yes [id number] 2{puff} Inhale 2 [facility] 90 3-16 Puffs [facility]y of mcg/actuati 00:00: every 6 [place] as on inhaler 00 (six) Medical hours as Branch needed for Wheezing or Shortness of Breath. glyBURIDE 5 Yes [id number] TAKE 1 [facility] mg tablet 3-16 TABLET BY ity o f 00:00: MOUTH [place] 00 TWICE Medical DAILY Branch (NEEDS FOLLOW UP VISIT FOR FURTHER REFILLS albuterol Yes [id number] 2{puff} Inhale 2 [facility] 90 3-16 Puffs [facility]y of mcg/actuati 00:00: every 6 [place] as on inhaler 00 (six) Medical hours as Branch needed for Wheezing or Shortness of Breath. glyBURIDE 5 Yes [id number] TAKE 1 [facility] mg tablet 3-16 TABLET BY ity o f 00:00: MOUTH [place] 00 TWICE Medical DAILY Branch (NEEDS FOLLOW UP VISIT FOR FURTHER REFILLS albuterol Yes [id number] 2{puff} Inhale 2 [facility] 90 3-16 Puffs [facility]y of mcg/actuati 00:00: every 6 [place] as on inhaler 00 (six) Medical hours as Branch needed for Wheezing or Shortness of Breath. glyBURIDE 5 Yes [id number] TAKE 1 [facility] mg tablet 3-16 TABLET BY ity o f 00:00: MOUTH [place] 00 TWICE Medical DAILY Branch (NEEDS FOLLOW UP VISIT FOR FURTHER REFILLS albuterol Yes [id number] 2{puff} Inhale 2 [facility] 90 3-16 Puffs [facility]y of mcg/actuati 00:00: every 6 [place] as on inhaler 00 (six) Medical hours as Branch needed for Wheezing or Shortness of Breath. glyBURIDE 5 Yes [id number] TAKE 1 [facility] mg tablet 3-16 TABLET BY ity o f 00:00: MOUTH [place] 00 TWICE Medical DAILY Branch (NEEDS FOLLOW UP VISIT FOR FURTHER REFILLS albuterol Yes [id number] 2{puff} Inhale 2 [facility] 90 3-16 Puffs [facility]y of mcg/actuati 00:00: every 6 [place] as on inhaler 00 (six) Medical hours as Branch needed for Wheezing or Shortness of Breath. glyBURIDE 5 Yes [id number] TAKE 1 [facility] mg tablet 3-16 TABLET BY ity o f 00:00: MOUTH [place] 00 TWICE Medical DAILY Branch (NEEDS FOLLOW UP VISIT FOR FURTHER REFILLS albuterol Yes [id number] 2{puff} Inhale 2 [facility] 90 3-16 Puffs ity of mcg/actuati 00:00: every 6 [place] as on inhaler 00 (six) Medical hours as Branch needed for Wheezing or Shortness of Breath. glyBURIDE Yes [id number] TAKE 1 [facility] mg tablet 3-16 TABLET BY ity o f 00:00: MOUTH [place] 00 TWICE Medical DAILY Branch (NEEDS FOLLOW UP VISIT FOR FURTHER REFILLS albuterol Yes [id number] 2{puff} Inhale 2 [facility] 90 3-16 Puffs ity of mcg/actuati 00:00: every 6 [place] as on inhaler 00 (six) Medical hours as Branch needed for Wheezing or Shortness of Breath. glyBURIDE 5 Yes [id number] TAKE 1 [facility] mg tablet 3-16 TABLET BY ity o f 00:00: MOUTH [place] 00 TWICE Medical DAILY Branch (NEEDS FOLLOW UP VISIT FOR FURTHER REFILLS albuterol Yes [id number] 2{puff} Inhale 2 [facility] 90 3-16 Puffs ity of mcg/actuati 00:00: every 6 [place] as on inhaler 00 (six) Medical hours as Branch needed for Wheezing or Shortness of Breath. glyBURIDE 5 Yes [id number] TAKE 1 [facility] mg tablet 3-16 TABLET BY ity o f 00:00: MOUTH [place] 00 TWICE Medical DAILY Branch (NEEDS FOLLOW UP VISIT FOR FURTHER REFILLS albuterol Yes [id number] 2{puff} Inhale 2 [facility] 90 3-16 Puffs ity of mcg/actuati 00:00: every 6 [place] as on inhaler 00 (six) Medical hours as Branch needed for Wheezing or Shortness of Breath. glyBURIDE 5 Yes [id number] TAKE 1 [facility] mg tablet 3-16 TABLET BY ity o f 00:00: MOUTH [place] 00 TWICE Medical DAILY Branch (NEEDS FOLLOW UP VISIT FOR FURTHER REFILLS albuterol Yes [id number] 2{puff} Inhale 2 [facility] 90 3-16 Puffs ity of mcg/actuati 00:00: every 6 [place] as on inhaler 00 (six) Medical hours as Branch needed for Wheezing or Shortness of Breath. glyBURIDE 5 Yes [id number] TAKE 1 [facility] mg tablet 3-16 TABLET BY ity o f 00:00: MOUTH [place] 00 TWICE Medical DAILY Branch (NEEDS FOLLOW UP VISIT FOR FURTHER REFILLS albuterol Yes [id number] 2{puff} Inhale 2 [facility] 90 3-16 Puffs ity of mcg/actuati 00:00: every 6 [place] as on inhaler 00 (six) Medical hours as Branch needed for Wheezing or Shortness of Breath. glyBURIDE 5 Yes [id number] TAKE 1 [facility] mg tablet 3-16 TABLET BY ity o f 00:00: MOUTH [place] 00 TWICE Medical DAILY Branch (NEEDS FOLLOW UP VISIT FOR FURTHER REFILLS albuterol Yes [id number] 2{puff} Inhale 2 [facility] 90 3-16 Puffs ity of mcg/actuati 00:00: every 6 [place] as on inhaler 00 (six) Medical hours as Branch needed for Wheezing or Shortness of Breath. glyBURIDE 5 Yes [id number] TAKE 1 [facility] mg tablet 3-16 TABLET BY ity o f 00:00: MOUTH [place] 00 TWICE Medical DAILY Branch (NEEDS FOLLOW UP VISIT FOR FURTHER REFILLS albuterol Yes [id number] 2{puff} Inhale 2 [facility] 90 3-16 Puffs ity of mcg/actuati 00:00: every 6 [place] as on inhaler 00 (six) Medical hours as Branch needed for Wheezing or Shortness of Breath. glyBURIDE 5 Yes [id number] TAKE 1 [facility] mg tablet 3-16 TABLET BY ity o f 00:00: MOUTH [place] 00 TWICE Medical DAILY Branch (NEEDS FOLLOW UP VISIT FOR FURTHER REFILLS albuterol Yes [id number] 2{puff} Inhale 2 [facility] 90 3-16 Puffs ity of mcg/actuati 00:00: every 6 [place] as on inhaler 00 (six) Medical hours as Branch needed for Wheezing or Shortness of Breath. glyBURIDE 5 Yes [id number] TAKE 1 [facility] mg tablet 3-16 TABLET BY ity o f 00:00: MOUTH [place] 00 TWICE Medical DAILY Branch (NEEDS FOLLOW UP VISIT FOR FURTHER REFILLS albuterol Yes [id number] 2{puff} Inhale 2 [facility] 90 3-16 Puffs ity of mcg/actuati 00:00: every 6 [place] as on inhaler 00 (six) Medical hours as Branch needed for Wheezing or Shortness of Breath. glyBURIDE Yes [id number] TAKE 1 [facility] mg tablet 3-16 TABLET BY ity o f 00:00: MOUTH [place] 00 TWICE Medical DAILY Branch (NEEDS FOLLOW UP VISIT FOR FURTHER REFILLS albuterol Yes [id number] 2{puff} Inhale 2 [facility] 90 3-16 Puffs ity of mcg/actuati 00:00: every 6 [place] as on inhaler 00 (six) Medical hours as Branch needed for Wheezing or Shortness of Breath. glyBURIDE Yes [id number] TAKE 1 [facility] mg tablet 3-16 TABLET BY ity o f 00:00: MOUTH [place] 00 TWICE Medical DAILY Branch (NEEDS FOLLOW UP VISIT FOR FURTHER REFILLS albuterol Yes [id number] 2{puff} Inhale 2 [facility] 90 3-16 Puffs ity of mcg/actuati 00:00: every 6 [place] as on inhaler 00 (six) Medical hours as Branch needed for Wheezing or Shortness of Breath. glyBURIDE 5 Yes [id number] TAKE 1 [facility] mg tablet 3-16 TABLET BY ity o f 00:00: MOUTH [place] 00 TWICE Medical DAILY Branch (NEEDS FOLLOW UP VISIT FOR FURTHER REFILLS albuterol Yes [id number] 2{puff} Inhale 2 [facility] 90 3-16 Puffs ity of mcg/actuati 00:00: every 6 [place] as on inhaler 00 (six) Medical hours as Branch needed for Wheezing or Shortness of Breath. glyBURIDE 5 Yes [id number] TAKE 1 [facility] mg tablet 3-16 TABLET BY ity o f 00:00: MOUTH [place] 00 TWICE Medical DAILY Branch (NEEDS FOLLOW UP VISIT FOR FURTHER REFILLS albuterol Yes [id number] 2{puff} Inhale 2 [facility] 90 3-16 Puffs ity of mcg/actuati 00:00: every 6 [place] as on inhaler 00 (six) Medical hours as Branch needed for Wheezing or Shortness of Breath. albuterol Yes [id number] 2{puff} Inhale 2 [facility] 90 3-16 Puffs ity of mcg/actuati 00:00: every 6 [place] as on inhaler 00 (six) Medical hours as Branch needed for Wheezing or Shortness of Breath. albuterol Yes [id number] 2{puff} Inhale 2 [facility] 90 3-16 Puffs ity of mcg/actuati 00:00: every 6 [place] as on inhaler 00 (six) Medical hours as Branch needed for Wheezing or Shortness of Breath. albuterol Yes [id number] 2{puff} Inhale 2 [facility] 90 3-16 Puffs ity of mcg/actuati 00:00: every 6 [place] as on inhaler 00 (six) Medical hours as Branch needed for Wheezing or Shortness of Breath. albuterol Yes [id number] 2{puff} Inhale 2 [facility] 90 3-16 Puffs ity of mcg/actuati 00:00: every 6 [place] as on inhaler 00 (six) Medical hours as Branch needed for Wheezing or Shortness of Breath. albuterol Yes [id number] 2{puff} Inhale 2 [facility] 90 3-16 Puffs ity of mcg/actuati 00:00: every 6 [place] as on inhaler 00 (six) Medical hours as Branch needed for Wheezing or Shortness of Breath. albuterol Yes [id number] 2{puff} Inhale 2 [facility] 90 3-16 Puffs ity of mcg/actuati 00:00: every 6 [place] as on inhaler 00 (six) Medical hours as Branch needed for Wheezing or Shortness of Breath. albuterol Yes [id number] 2{puff} Inhale 2 [facility] 90 3-16 Puffs ity of mcg/actuati 00:00: every 6 [place] as on inhaler 00 (six) Medical hours as Branch needed for Wheezing or Shortness of Breath. albuterol Yes [id number] 2{puff} Inhale 2 [facility] 90 3-16 Puffs ity of mcg/actuati 00:00: every 6 [place] as on inhaler 00 (six) Medical hours as Branch needed for Wheezing or Shortness of Breath. albuterol Yes [id number] 2{puff} Inhale 2 [facility] 90 3-16 Puffs ity of mcg/actuati 00:00: every 6 [place] as on inhaler 00 (six) Medical hours as Branch needed for Wheezing or Shortness of Breath. albuterol Yes [id number] 2{puff} Inhale 2 [facility] 90 3-16 Puffs ity of mcg/actuati 00:00: every 6 [place] as on inhaler 00 (six) Medical hours as Branch needed for Wheezing or Shortness of Breath. albuterol Yes [id number] 2{puff} Inhale 2 [facility] 90 3-16 Puffs ity of mcg/actuati 00:00: every 6 [place] as on inhaler 00 (six) Medical hours as Branch needed for Wheezing or Shortness of Breath. albuterol Yes [id number] 2{puff} Inhale 2 [facility] 90 3-16 Puffs ity of mcg/actuati 00:00: every 6 [place] as on inhaler 00 (six) Medical hours as Branch needed for Wheezing or Shortness of Breath. albuterol Yes [id number] 2{puff} Inhale 2 [facility] 90 3-16 Puffs ity of mcg/actuati 00:00: every 6 [place] as on inhaler 00 (six) Medical hours as Branch needed for Wheezing or Shortness of Breath. albuterol Yes [id number] 2{puff} Inhale 2 [facility] 90 3-16 Puffs ity of mcg/actuati 00:00: every 6 [place] as on inhaler 00 (six) Medical hours as Branch needed for Wheezing or Shortness of Breath. albuterol Yes [id number] 2{puff} Inhale 2 [facility] 90 3-16 Puffs ity of mcg/actuati 00:00: every 6 [place] as on inhaler 00 (six) Medical hours as Branch needed for Wheezing or Shortness of Breath. albuterol Yes [id number] 2{puff} Inhale 2 [facility] 90 3-16 Puffs ity of mcg/actuati 00:00: every 6 [place] as on inhaler 00 (six) Medical hours as Branch needed for Wheezing or Shortness of Breath. albuterol Yes [id number] 2{puff} Inhale 2 [facility] 90 3-16 Puffs ity of mcg/actuati 00:00: every 6 [place] as on inhaler 00 (six) Medical hours as Branch needed for Wheezing or Shortness of Breath. albuterol Yes [id number] 2{puff} Inhale 2 [facility] 90 3-16 Puffs ity of mcg/actuati 00:00: every 6 [place] as on inhaler 00 (six) Medical hours as Branch needed for Wheezing or Shortness of Breath. albuterol Yes [id number] 2{puff} Inhale 2 [facility] 90 3-16 Puffs ity of mcg/actuati 00:00: every 6 [place] as on inhaler 00 (six) Medical hours as Branch needed for Wheezing or Shortness of Breath. albuterol Yes [id number] 2{puff} Inhale 2 [facility] 90 3-16 Puffs ity of mcg/actuati 00:00: every 6 [place] as on inhaler 00 (six) Medical hours as Branch needed for Wheezing or Shortness of Breath. albuterol Yes [id number] 2{puff} Inhale 2 [facility] 90 3-16 Puffs ity of mcg/actuati 00:00: every 6 [place] as on inhaler 00 (six) Medical hours as Branch needed for Wheezing or Shortness of Breath. albuterol Yes [id number] 2{puff} Inhale 2 [facility] 90 3-16 Puffs ity of mcg/actuati 00:00: every 6 [place] as on inhaler 00 (six) Medical hours as Branch needed for Wheezing or Shortness of Breath. albuterol Yes [id number] 2{puff} Inhale 2 [facility] 90 3-16 Puffs ity of mcg/actuati 00:00: every 6 [place] as on inhaler 00 (six) Medical hours as Branch needed for Wheezing or Shortness of Breath. albuterol Yes [id number] 2{puff} Inhale 2 [facility] 90 3-16 Puffs ity of mcg/actuati 00:00: every 6 [place] as on inhaler 00 (six) Medical hours as Branch needed for Wheezing or Shortness of Breath. albuterol Yes [id number] 2{puff} Inhale 2 [facility] 90 3-16 Puffs ity of mcg/actuati 00:00: every 6 [place] as on inhaler 00 (six) Medical hours as Branch needed for Wheezing or Shortness of Breath. albuterol Yes [id number] 2{puff} Inhale 2 [facility] 90 3-16 Puffs ity of mcg/actuati 00:00: every 6 [place] as on inhaler 00 (six) Medical hours as Branch needed for Wheezing or Shortness of Breath. albuterol Yes [id number] 2{puff} Inhale 2 [facility] 90 3-16 Puffs ity of mcg/actuati 00:00: every 6 [place] as on inhaler 00 (six) Medical hours as Branch needed for Wheezing or Shortness of Breath. albuterol Yes [id number] 2{puff} Inhale 2 [facility] 90 3-16 Puffs ity of mcg/actuati 00:00: every 6 [place] as on inhaler 00 (six) Medical hours as Branch needed for Wheezing or Shortness of Breath. albuterol Yes [id number] 2{puff} Inhale 2 [facility] 90 3-16 Puffs ity of mcg/actuati 00:00: every 6 [place] as on inhaler 00 (six) Medical hours as Branch needed for Wheezing or Shortness of Breath. albuterol Yes [id number] 2{puff} Inhale 2 [facility] 90 3-16 Puffs ity of mcg/actuati 00:00: every 6 [place] as on inhaler 00 (six) Medical hours as Branch needed for Wheezing or Shortness of Breath. albuterol Yes [id number] 2{puff} Inhale 2 [facility] 90 3-16 Puffs ity of mcg/actuati 00:00: every 6 [place] as on inhaler 00 (six) Medical hours as Branch needed for Wheezing or Shortness of Breath. albuterol Yes [id number] 2{puff} Inhale 2 [facility] 90 3-16 Puffs ity of mcg/actuati 00:00: every 6 [place] as on inhaler 00 (six) Medical hours as Branch needed for Wheezing or Shortness of Breath. albuterol Yes [id number] 2{puff} Inhale 2 [facility] 90 3-16 Puffs ity of mcg/actuati 00:00: every 6 [place] as on inhaler 00 (six) Medical hours as Branch needed for Wheezing or Shortness of Breath. albuterol Yes [id number] 2{puff} Inhale 2 [facility] 90 3-16 Puffs ity of mcg/actuati 00:00: every 6 [place] as on inhaler 00 (six) Medical hours as Branch needed for Wheezing or Shortness of Breath. albuterol Yes [id number] 2{puff} Inhale 2 [facility] 90 3-16 Puffs ity of mcg/actuati 00:00: every 6 [place] as on inhaler 00 (six) Medical hours as Branch needed for Wheezing or Shortness of Breath. albuterol Yes [id number] 2{puff} Inhale 2 [facility] 90 3-16 Puffs ity of mcg/actuati 00:00: every 6 [place] as on inhaler 00 (six) Medical hours as Branch needed for Wheezing or Shortness of Breath. albuterol Yes [id number] 2{puff} Inhale 2 [facility] 90 3-16 Puffs ity of mcg/actuati 00:00: every 6 [place] as on inhaler 00 (six) Medical hours as Branch needed for Wheezing or Shortness of Breath. albuterol Yes [id number] 2{puff} Inhale 2 [facility] 90 3-16 Puffs ity of mcg/actuati 00:00: every 6 [place] as on inhaler 00 (six) Medical hours as Branch needed for Wheezing or Shortness of Breath. albuterol Yes [id number] 2{puff} Inhale 2 [facility] 90 3-16 Puffs ity of mcg/actuati 00:00: every 6 [place] as on inhaler 00 (six) Medical hours as Branch needed for Wheezing or Shortness of Breath. albuterol Yes [id number] 2{puff} Inhale 2 [facility] 90 3-16 Puffs ity of mcg/actuati 00:00: every 6 [place] as on inhaler 00 (six) Medical hours as Branch needed for Wheezing or Shortness of Breath. albuterol Yes [id number] 2{puff} Inhale 2 [facility] 90 3-16 Puffs ity of mcg/actuati 00:00: every 6 [place] as on inhaler 00 (six) Medical hours as Branch needed for Wheezing or Shortness of Breath. albuterol Yes [id number] 2{puff} Inhale 2 [facility] 90 3-16 Puffs ity of mcg/actuati 00:00: every 6 [place] as on inhaler 00 (six) Medical hours as Branch needed for Wheezing or Shortness of Breath. albuterol Yes [id number] 2{puff} Inhale 2 [facility] 90 3-16 Puffs ity of mcg/actuati 00:00: every 6 [place] as on inhaler 00 (six) Medical hours as Branch needed for Wheezing or Shortness of Breath. albuterol Yes [id number] 2{puff} Inhale 2 [facility] 90 3-16 Puffs ity of mcg/actuati 00:00: every 6 [place] as on inhaler 00 (six) Medical hours as Branch needed for Wheezing or Shortness of Breath. albuterol Yes [id number] 2{puff} Inhale 2 [facility] 90 3-16 Puffs ity of mcg/actuati 00:00: every 6 [place] as on inhaler 00 (six) Medical hours as Branch needed for Wheezing or Shortness of Breath. albuterol Yes [id number] 2{puff} Inhale 2 [facility] 90 3-16 Puffs ity of mcg/actuati 00:00: every 6 [place] as on inhaler 00 (six) Medical hours as Branch needed for Wheezing or Shortness of Breath. albuterol Yes [id number] 2{puff} Inhale 2 [facility] 90 3-16 Puffs ity of mcg/actuati 00:00: every 6 [place] as on inhaler 00 (six) Medical hours as Branch needed for Wheezing or Shortness of Breath. albuterol Yes [id number] 2{puff} Inhale 2 [facility] 90 3-16 Puffs ity of mcg/actuati 00:00: every 6 [place] as on inhaler 00 (six) Medical hours as Branch needed for Wheezing or Shortness of Breath. albuterol Yes [id number] 2{puff} Inhale 2 [facility] 90 3-16 Puffs ity of mcg/actuati 00:00: every 6 [place] as on inhaler 00 (six) Medical hours as Branch needed for Wheezing or Shortness of Breath. albuterol Yes [id number] 2{puff} Inhale 2 [facility] 90 3-16 Puffs ity of mcg/actuati 00:00: every 6 [place] as on inhaler 00 (six) Medical hours as Branch needed for Wheezing or Shortness of Breath. albuterol Yes [id number] 2{puff} Inhale 2 [facility] 90 3-16 Puffs ity of mcg/actuati 00:00: every 6 [place] as on inhaler 00 (six) Medical hours as Branch needed for Wheezing or Shortness of Breath. albuterol Yes [id number] 2{puff} Inhale 2 [facility] 90 3-16 Puffs ity of mcg/actuati 00:00: every 6 [place] as on inhaler 00 (six) Medical hours as Branch needed for Wheezing or Shortness of Breath. albuterol Yes [id number] 2{puff} Inhale 2 [facility] 90 3-16 Puffs ity of mcg/actuati 00:00: every 6 [place] as on inhaler 00 (six) Medical hours as Branch needed for Wheezing or Shortness of Breath. albuterol Yes [id number] 2{puff} Inhale 2 [facility] 90 3-16 Puffs ity of mcg/actuati 00:00: every 6 [place] as on inhaler 00 (six) Medical hours as Branch needed for Wheezing or Shortness of Breath. albuterol Yes [id number] 2{puff} Inhale 2 [facility] 90 3-16 Puffs ity of mcg/actuati 00:00: every 6 [place] as on inhaler 00 (six) Medical hours as Branch needed for Wheezing or Shortness of Breath. albuterol Yes [id number] 2{puff} Inhale 2 [facility] 90 3-16 Puffs ity of mcg/actuati 00:00: every 6 [place] as on inhaler 00 (six) Medical hours as Branch needed for Wheezing or Shortness of Breath. albuterol Yes [id number] 2{puff} Inhale 2 [facility] 90 3-16 Puffs ity of mcg/actuati 00:00: every 6 [place] as on inhaler 00 (six) Medical hours as Branch needed for Wheezing or Shortness of Breath. albuterol Yes [id number] 2{puff} Inhale 2 [facility] 90 3-16 Puffs ity of mcg/actuati 00:00: every 6 [place] as on inhaler 00 (six) Medical hours as Branch needed for Wheezing or Shortness of Breath. albuterol Yes [id number] 2{puff} Inhale 2 [facility] 90 3-16 Puffs ity of mcg/actuati 00:00: every 6 [place] as on inhaler 00 (six) Medical hours as Branch needed for Wheezing or Shortness of Breath. albuterol Yes [id number] 2{puff} Inhale 2 [facility] 90 3-16 Puffs ity of mcg/actuati 00:00: every 6 [place] as on inhaler 00 (six) Medical hours as Branch needed for Wheezing or Shortness of Breath. albuterol Yes [id number] 2{puff} Inhale 2 [facility] 90 3-16 Puffs ity of mcg/actuati 00:00: every 6 [place] as on inhaler 00 (six) Medical hours as Branch needed for Wheezing or Shortness of Breath. albuterol Yes [id number] 2{puff} Inhale 2 [facility] 90 3-16 Puffs ity of mcg/actuati 00:00: every 6 [place] as on inhaler 00 (six) Medical hours as Branch needed for Wheezing or Shortness of Breath. albuterol Yes [id number] 2{puff} Inhale 2 [facility] 90 3-16 Puffs ity of mcg/actuati 00:00: every 6 [place] as on inhaler 00 (six) Medical hours as Branch needed for Wheezing or Shortness of Breath. albuterol Yes [id number] 2{puff} Inhale 2 [facility] 90 3-16 Puffs ity of mcg/actuati 00:00: every 6 [place] as on inhaler 00 (six) Medical hours as Branch needed for Wheezing or Shortness of Breath. albuterol Yes [id number] 2{puff} Inhale 2 [facility] 90 3-16 Puffs ity of mcg/actuati 00:00: every 6 [place] as on inhaler 00 (six) Medical hours as Branch needed for Wheezing or Shortness of Breath. albuterol Yes [id number] 2{puff} Inhale 2 [facility] 90 3-16 Puffs ity of mcg/actuati 00:00: every 6 [place] as on inhaler 00 (six) Medical hours as Branch needed for Wheezing or Shortness of Breath. albuterol Yes [id number] 2{puff} Inhale 2 [facility] 90 3-16 Puffs ity of mcg/actuati 00:00: every 6 [place] as on inhaler 00 (six) Medical hours as Branch needed for Wheezing or Shortness of Breath. albuterol Yes [id number] 2{puff} Inhale 2 [facility] 90 3-16 Puffs ity of mcg/actuati 00:00: every 6 [place] as on inhaler 00 (six) Medical hours as Branch needed for Wheezing or Shortness of Breath. albuterol Yes [id number] 2{puff} Inhale 2 [facility] 90 3-16 Puffs ity of mcg/actuati 00:00: every 6 [place] as on inhaler 00 (six) Medical hours as Branch needed for Wheezing or Shortness of Breath. albuterol Yes [id number] 2{puff} Inhale 2 [facility] 90 3-16 Puffs ity of mcg/actuati 00:00: every 6 [place] as on inhaler 00 (six) Medical hours as Branch needed for Wheezing or Shortness of Breath. albuterol Yes [id number] 2{puff} Inhale 2 [facility] 90 3-16 Puffs ity of mcg/actuati 00:00: every 6 [place] as on inhaler 00 (six) Medical hours as Branch needed for Wheezing or Shortness of Breath. albuterol Yes [id number] 2{puff} Inhale 2 [facility] 90 3-16 Puffs ity of mcg/actuati 00:00: every 6 [place] as on inhaler 00 (six) Medical hours as Branch needed for Wheezing or Shortness of Breath. glyBURIDE 5 2022- No [id number] TAKE 1 [facility] mg tablet 3-16 06-14 TABLET BY ity of 00:00: 00:00 MOUTH [place] 00 :00 TWICE Medical DAILY Branch (NEEDS FOLLOW UP VISIT FOR FURTHER REFILLS glyBURIDE 5 2022- No [id number] TAKE 1 [facility] mg tablet 3-16 06-14 TABLET BY ity of 00:00: 00:00 MOUTH [place] 00 :00 TWICE Medical DAILY Branch (NEEDS FOLLOW UP VISIT FOR FURTHER REFILLS glyBURIDE 5 2022- No [id number] TAKE 1 [facility] mg tablet 3-16 06-14 TABLET BY ity of 00:00: 00:00 MOUTH [place] 00 :00 TWICE Medical DAILY Branch (NEEDS FOLLOW UP VISIT FOR FURTHER REFILLS glyBURIDE 5 2022- No [id number] TAKE 1 [facility] mg tablet 3-16 06-14 TABLET BY ity of 00:00: 00:00 MOUTH [place] 00 :00 TWICE Medical DAILY Branch (NEEDS FOLLOW UP VISIT FOR FURTHER REFILLS glyBURIDE 5 2022- No [id number] TAKE 1 [facility] mg tablet 3-16 06-14 TABLET BY ity of 00:00: 00:00 MOUTH [place] 00 :00 TWICE Medical DAILY Branch (NEEDS FOLLOW UP VISIT FOR FURTHER REFILLS gabapentin Yes [id number] 600mg Take 1 [facility] 600 mg 3-14 tablet by ity of tablet 00:00: mouth in [place] the Medical morning Branch and 1 tablet at noon and 1 tablet in the evening. gabapentin 0 Yes [id number] 600mg Take 1 [facility] 600 mg 3-14 tablet by ity of tablet 00:00: mouth in [place] 00 the Medical morning Branch and 1 tablet at noon and 1 tablet in the evening. gabapentin Yes [id number] 600mg Take 1 [facility] 600 mg 3-14 tablet by ity of tablet 00:00: mouth in [place] 00 the Medical morning Branch and 1 tablet at noon and 1 tablet in the evening. gabapentin 2023-0 Yes [id number] 600mg Take 1 [facility] 600 mg 3-14 tablet by ity of tablet 00:00: mouth in [place] [address] the Medical morning Branch and 1 tablet at noon and 1 tablet in the evening. gabapentin 2023-0 Yes [id number] 600mg Take 1 [facility] 600 mg 3-14 tablet by ity of tablet 00:00: mouth in [place] [address] the Medical morning Branch and 1 tablet at noon and 1 tablet in the evening. gabapentin 2023-0 Yes [id number] 600mg Take 1 [facility] 600 mg 3-14 tablet by ity of tablet 00:00: mouth in [place] [address] the Medical morning [place] and 1 tablet at noon and 1 tablet in the evening. gabapentin 2023-0 Yes [id number] 600mg Take 1 [facility] 600 mg 3-14 tablet by ity of tablet 00:00: mouth in [place] [address] the [facility] morning [place] and 1 tablet at noon and 1 tablet in the evening. gabapentin 2023-0 Yes [id number] 600mg Take 1 [facility] 600 mg 3-14 tablet by ity of tablet 00:00: mouth in [address] morning [place] and 1 tablet at noon and 1 tablet in the evening. gabapentin 2023-0 Yes [id number] 600mg Take 1 [facility] 600 mg 3-14 tablet by ity of tablet 00:00: mouth in [address] morning [place] and 1 tablet at noon and 1 tablet in the evening. gabapentin 2023-0 Yes [id number] 600mg Take 1 [facility] 600 mg 3-14 tablet by ity of tablet 00:00: mouth in [address] morning [place] and 1 tablet at noon and 1 tablet in the evening. gabapentin 2023-0 Yes [id number] 600mg Take 1 [facility] 600 mg 3-14 tablet by ity of tablet 00:00: mouth in [address] morning [place] and 1 tablet at noon and 1 tablet in the evening. gabapentin 2023-0 Yes [id number] 600mg Take 1 [facility] 600 mg 3-14 tablet by ity of tablet 00:00: mouth in [address] morning [place] and 1 tablet at noon and 1 tablet in the evening. gabapentin 2023-0 Yes [id number] 600mg Take 1 [facility] 600 mg 3-14 tablet by ity of tablet 00:00: mouth in [place] 00 the Medical morning Branch and 1 tablet at noon and 1 tablet in the evening. gabapentin 2023-0 Yes [id number] 600mg Take 1 [facility] 600 mg 3-14 tablet by ity of tablet 00:00: mouth in [place] [address] the Medical morning Branch and 1 tablet at noon and 1 tablet in the evening. gabapentin 2023-0 Yes [id number] 600mg Take 1 [facility] 600 mg 3-14 tablet by ity of tablet 00:00: mouth in [place] [address] the Medical morning Branch and 1 tablet at noon and 1 tablet in the evening. gabapentin 2023-0 Yes [id number] 600mg Take 1 [facility] 600 mg 3-14 tablet by ity of tablet 00:00: mouth in [place] [address] the Medical morning Branch and 1 tablet at noon and 1 tablet in the evening. gabapentin 2023-0 Yes [id number] 600mg Take 1 [facility] 600 mg 3-14 tablet by ity of tablet 00:00: mouth in [place] [address] the Medical morning Branch and 1 tablet at noon and 1 tablet in the evening. gabapentin 2023-0 Yes [id number] 600mg Take 1 [facility] 600 mg 3-14 tablet by ity of tablet 00:00: mouth in [place] [address] the [facility] morning [place] and 1 tablet at noon and 1 tablet in the evening. gabapentin 2023-0 Yes [id number] 600mg Take 1 [facility] 600 mg 3-14 tablet by ity of tablet 00:00: mouth in [place] [address] the Medical morning [place] and 1 tablet at noon and 1 tablet in the evening. gabapentin 2023-0 Yes [id number] 600mg Take 1 [facility] 600 mg 3-14 tablet by ity of tablet 00:00: mouth in [place] [address] the Medical morning Branch and 1 tablet at noon and 1 tablet in the evening. gabapentin 2023-0 Yes [id number] 600mg Take 1 [facility] 600 mg 3-14 tablet by ity of tablet 00:00: mouth in [place] [address] the Medical morning Branch and 1 tablet at noon and 1 tablet in the evening. gabapentin 2023-0 Yes [id number] 600mg Take 1 [facility] 600 mg 3-14 tablet by ity of tablet 00:00: mouth in [place] [address] the Medical morning [place] and 1 tablet at noon and 1 tablet in the evening. gabapentin 2023-0 Yes [id number] 600mg Take 1 [facility] 600 mg 3-14 tablet by ity of tablet 00:00: mouth in [place] 00 the Medical morning [place] and 1 tablet at noon and 1 tablet in the evening. gabapentin 2023-0 Yes [id number] 600mg Take 1 [facility] 600 mg 3-14 tablet by ity of tablet 00:00: mouth in [place] [address] the Medical morning Branch and 1 tablet at noon and 1 tablet in the evening. gabapentin 2023-0 Yes [id number] 600mg Take 1 [facility] 600 mg 3-14 tablet by ity of tablet 00:00: mouth in [place] [address] the [facility] morning [place] and 1 tablet at noon and 1 tablet in the evening. gabapentin 2023-0 Yes [id number] 600mg Take 1 [facility] 600 mg 3-14 tablet by ity of tablet 00:00: mouth in [place] [address] the [facility] morning [place] and 1 tablet at noon and 1 tablet in the evening. gabapentin 2023-0 Yes [id number] 600mg Take 1 [facility] 600 mg 3-14 tablet by ity of tablet 00:00: mouth in [address] morning [place] and 1 tablet at noon and 1 tablet in the evening. gabapentin 2023-0 Yes [id number] 600mg Take 1 [facility] 600 mg 3-14 tablet by ity of tablet 00:00: mouth in [address] morning [place] and 1 tablet at noon and 1 tablet in the evening. gabapentin 2023-0 Yes [id number] 600mg Take 1 [facility] 600 mg 3-14 tablet by ity of tablet 00:00: mouth in [address] morning [place] and 1 tablet at noon and 1 tablet in the evening. gabapentin 2023-0 Yes [id number] 600mg Take 1 [facility] 600 mg 3-14 tablet by ity of tablet 00:00: mouth in [address] morning [place] and 1 tablet at noon and 1 tablet in the evening. gabapentin 2023-0 Yes [id number] 600mg Take 1 [facility] 600 mg 3-14 tablet by ity of tablet 00:00: mouth in [place] [address] the [facility] morning [place] and 1 tablet at noon and 1 tablet in the evening. gabapentin 2023-0 Yes [id number] 600mg Take 1 [facility] 600 mg 3-14 tablet by ity of tablet 00:00: mouth in [address] morning [place] and 1 tablet at noon and 1 tablet in the evening. gabapentin 2023-0 Yes [id number] 600mg Take 1 [facility] 600 mg 3-14 tablet by ity of tablet 00:00: mouth in [place] [address] the Medical morning Branch and 1 tablet at noon and 1 tablet in the evening. gabapentin 2023-0 Yes [id number] 600mg Take 1 [facility] 600 mg 3-14 tablet by ity of tablet 00:00: mouth in [place] [address] the Medical morning Branch and 1 tablet at noon and 1 tablet in the evening. gabapentin 2023-0 Yes [id number] 600mg Take 1 [facility] 600 mg 3-14 tablet by ity of tablet 00:00: mouth in [place] [address] the Medical morning Branch and 1 tablet at noon and 1 tablet in the evening. gabapentin 2023-0 Yes [id number] 600mg Take 1 [facility] 600 mg 3-14 tablet by ity of tablet 00:00: mouth in [place] [address] the Medical morning Branch and 1 tablet at noon and 1 tablet in the evening. gabapentin 2023-0 Yes [id number] 600mg Take 1 [facility] 600 mg 3-14 tablet by ity of tablet 00:00: mouth in [place] [address] the Medical morning [place] and 1 tablet at noon and 1 tablet in the evening. gabapentin 2023-0 Yes [id number] 600mg Take 1 [facility] 600 mg 3-14 tablet by ity of tablet 00:00: mouth in [place] [address] the Medical morning [place] and 1 tablet at noon and 1 tablet in the evening. gabapentin 2023-0 Yes [id number] 600mg Take 1 [facility] 600 mg 3-14 tablet by ity of tablet 00:00: mouth in [place] [address] the Medical morning [place] and 1 tablet at noon and 1 tablet in the evening. gabapentin 2023-0 Yes [id number] 600mg Take 1 [facility] 600 mg 3-14 tablet by ity of tablet 00:00: mouth in [place] [address] the Medical morning [place] and 1 tablet at noon and 1 tablet in the evening. gabapentin 2023-0 Yes [id number] 600mg Take 1 [facility] 600 mg 3-14 tablet by ity of tablet 00:00: mouth in [place] [address] the Medical morning [place] and 1 tablet at noon and 1 tablet in the evening. gabapentin 2023-0 Yes [id number] 600mg Take 1 [facility] 600 mg 3-14 tablet by ity of tablet 00:00: mouth in [place] [address] the Medical morning [place] and 1 tablet at noon and 1 tablet in the evening. gabapentin 2023-0 Yes [id number] 600mg Take 1 [facility] 600 mg 3-14 tablet by ity of tablet 00:00: mouth in [place] [address] the Medical morning Branch and 1 tablet at noon and 1 tablet in the evening. gabapentin 2023-0 Yes [id number] 600mg Take 1 [facility] 600 mg 3-14 tablet by ity of tablet 00:00: mouth in [place] [address] the Medical morning Branch and 1 tablet at noon and 1 tablet in the evening. gabapentin 2023-0 Yes [id number] 600mg Take 1 [facility] 600 mg 3-14 tablet by ity of tablet 00:00: mouth in [place] [address] the Medical morning Branch and 1 tablet at noon and 1 tablet in the evening. gabapentin 2023-0 Yes [id number] 600mg Take 1 [facility] 600 mg 3-14 tablet by ity of tablet 00:00: mouth in [place] [address] the Medical morning [place] and 1 tablet at noon and 1 tablet in the evening. gabapentin 2023-0 Yes [id number] 600mg Take 1 [facility] 600 mg 3-14 tablet by ity of tablet 00:00: mouth in [address] Medical morning [place] and 1 tablet at noon and 1 tablet in the evening. gabapentin 2023-0 Yes [id number] 600mg Take 1 [facility] 600 mg 3-14 tablet by ity of tablet 00:00: mouth in [place] [address] the [facility] morning [place] and 1 tablet at noon and 1 tablet in the evening. gabapentin 2023-0 Yes [id number] 600mg Take 1 [facility] 600 mg 3-14 tablet by ity of tablet 00:00: mouth in [address] Medical morning [place] and 1 tablet at noon and 1 tablet in the evening. gabapentin 2023-0 Yes [id number] 600mg Take 1 [facility] 600 mg 3-14 tablet by ity of tablet 00:00: mouth in [address] Medical morning [place] and 1 tablet at noon and 1 tablet in the evening. gabapentin 2023-0 Yes [id number] 600mg Take 1 [facility] 600 mg 3-14 tablet by ity of tablet 00:00: mouth in [address] Medical morning [place] and 1 tablet at noon and 1 tablet in the evening. gabapentin 2023-0 Yes [id number] 600mg Take 1 [facility] 600 mg 3-14 tablet by ity of tablet 00:00: mouth in [address] Medical morning [place] and 1 tablet at noon and 1 tablet in the evening. gabapentin 2023-0 Yes [id number] 600mg Take 1 [facility] 600 mg 3-14 tablet by ity of tablet 00:00: mouth in [place] [address] the Medical morning Branch and 1 tablet at noon and 1 tablet in the evening. gabapentin 2023-0 Yes [id number] 600mg Take 1 [facility] 600 mg 3-14 tablet by ity of tablet 00:00: mouth in [place] [address] the Medical morning Branch and 1 tablet at noon and 1 tablet in the evening. gabapentin 2023-0 Yes [id number] 600mg Take 1 [facility] 600 mg 3-14 tablet by ity of tablet 00:00: mouth in [place] [address] the Medical morning [place] and 1 tablet at noon and 1 tablet in the evening. gabapentin 2023-0 Yes [id number] 600mg Take 1 [facility] 600 mg 3-14 tablet by ity of tablet 00:00: mouth in [place] [address] the [facility] morning [place] and 1 tablet at noon and 1 tablet in the evening. gabapentin 2023-0 Yes [id number] 600mg Take 1 [facility] 600 mg 3-14 tablet by ity of tablet 00:00: mouth in [address] morning [place] and 1 tablet at noon and 1 tablet in the evening. gabapentin 2023-0 Yes [id number] 600mg Take 1 [facility] 600 mg 3-14 tablet by ity of tablet 00:00: mouth in [address] morning [place] and 1 tablet at noon and 1 tablet in the evening. gabapentin 2023-0 Yes [id number] 600mg Take 1 [facility] 600 mg 3-14 tablet by ity of tablet 00:00: mouth in [address] morning [place] and 1 tablet at noon and 1 tablet in the evening. gabapentin 2023-0 Yes [id number] 600mg Take 1 [facility] 600 mg 3-14 tablet by ity of tablet 00:00: mouth in [address] morning [place] and 1 tablet at noon and 1 tablet in the evening. gabapentin 2023-0 Yes [id number] 600mg Take 1 [facility] 600 mg 3-14 tablet by ity of tablet 00:00: mouth in [address] morning [place] and 1 tablet at noon and 1 tablet in the evening. gabapentin 2023-0 Yes [id number] 600mg Take 1 [facility] 600 mg 3-14 tablet by ity of tablet 00:00: mouth in [address] morning Branch and 1 tablet at noon and 1 tablet in the evening. gabapentin 2023-0 Yes [id number] 600mg Take 1 [facility] 600 mg 3-14 tablet by ity of tablet 00:00: mouth in [place] 00 the Medical morning Branch and 1 tablet at noon and 1 tablet in the evening. gabapentin 2023-0 Yes [id number] 600mg Take 1 [facility] 600 mg 3-14 tablet by ity of tablet 00:00: mouth in [place] 00 the Medical morning Branch and 1 tablet at noon and 1 tablet in the evening. gabapentin 2023-0 Yes [id number] 600mg Take 1 [facility] 600 mg 3-14 tablet by ity of tablet 00:00: mouth in [place] 00 the Medical morning Branch and 1 tablet at noon and 1 tablet in the evening. gabapentin 2023-0 Yes [id number] 600mg Take 1 [facility] 600 mg 3-14 tablet by ity of tablet 00:00: mouth in [place] 00 the Medical morning Branch and 1 tablet at noon and 1 tablet in the evening. gabapentin 2023-0 Yes [id number] 600mg Take 1 [facility] 600 mg 3-14 tablet by ity of tablet 00:00: mouth in [place] 00 the Medical morning Branch and 1 tablet at noon and 1 tablet in the evening. gabapentin 2023-0 2023- No [id number] 600mg Take 1 [facility] 600 mg 3-14 06-20 tablet by ity of tablet 00:00: 00:00 mouth in [place] 00 :00 the Medical morning Branch and 1 tablet at noon and 1 tablet in the evening. gabapentin 2023-0 2023- No [id number] 600mg Take 1 [facility] 600 mg 3-14 06-20 tablet by ity of tablet 00:00: 00:00 mouth in [place] 00 :00 the Medical morning Branch and 1 tablet at noon and 1 tablet in the evening. gabapentin 2023-0 2023- No [id number] 600mg Take 1 [facility] 600 mg 3-14 06-20 tablet by ity of tablet 00:00: 00:00 mouth in [place] 00 :00 the Medical morning Branch and 1 tablet at noon and 1 tablet in the evening. gabapentin 2023-0 2023- No [id number] 600mg Take 1 [facility] 600 mg 3-14 06-20 tablet by ity of tablet 00:00: 00:00 mouth in [place] 00 :00 the Medical morning Branch and 1 tablet at noon and 1 tablet in the evening. gabapentin 2023-0 3- No [id number] 600mg Take 1 [facility] 600 mg 3-14 06-20 tablet by ity of tablet 00:00: 00:00 mouth in [place] 00 :00 the Medical morning Branch and 1 tablet at noon and 1 tablet in the evening. gabapentin 2023-0 3- No [id number] 600mg Take 1 [facility] 600 mg 3-14 06-20 tablet by ity of tablet 00:00: 00:00 mouth in [place] 00 :00 the Medical morning Branch and 1 tablet at noon and 1 tablet in the evening. gabapentin 2023-0 3- No [id number] 600mg Take 1 [facility] 600 mg 3-14 -20 tablet by ity of tablet 00:00: 00:00 mouth in [place] 00 :00 the Medical morning Branch and 1 tablet at noon and 1 tablet in the evening. Butalbital- 2023-0 Yes TAKE 1 [facility] ers Acetaminoph 2-22 CAPSULE BY it y of en-Caff 00:00: MOUTH [place] 40 00 EVERY 6 Medical mg per HOURS Branch capsule NEEDED meclizine 2023-0 Yes TAKE 1 [facility] 25 mg 2-22 TABLET BY ity of tablet 00:00: MOUTH [place] 00 EVERY 8 Medical HOURS Branch NEEDED ondansetron 2023-0 Yes TAKE 1 [facility] ers 4 mg tablet 2-22 TABLET BY ity of 00:00: MOUTH [place] 00 EVERY 12 Medical HOURS Branch NEEDED Butalbital- 2023-0 Yes TAKE 1 [facility] ers Acetaminoph 2-22 CAPSULE BY it y of en-Caff 00:00: MOUTH [place] [id number] EVERY 6 Medical mg per HOURS Branch capsule NEEDED meclizine 2023-0 Yes TAKE 1 [facility] 25 mg 2-22 TABLET BY ity of tablet 00:00: MOUTH [place] 00 EVERY 8 Medical HOURS Branch NEEDED ondansetron 2023-0 Yes TAKE 1 [facility] ers 4 mg tablet 2-22 TABLET BY ity of 00:00: MOUTH [place] 00 EVERY 12 Medical HOURS Branch NEEDED Butalbital- 2023-0 Yes TAKE 1 [facility] ers [facility] 2-22 CAPSULE BY [facility] en-Caff 00:00: MOUTH [place] 5030040 00 EVERY 6 Medical mg per HOURS Branch capsule NEEDED meclizine 2023-0 Yes TAKE 1 [facility] mg 2-22 TABLET BY [facility] tablet 00:00: MOUTH EVERY 8 Medical HOURS Branch NEEDED ondansetron 2023-0 Yes TAKE 1 [facility] 4 mg tablet 2-22 TABLET BY [facility] 00:00: MOUTH EVERY 12 Medical HOURS Branch NEEDED Butalbital- 2023-0 Yes TAKE 1 [facility] 2-22 CAPSULE BY [facility] en-Caff 00:00: MOUTH [place] 40 00 EVERY 6 Medical mg per HOURS Branch capsule NEEDED meclizine 2023-0 Yes TAKE 1 [facility] 25 mg 2-22 TABLET BY [facility] tablet 00:00: MOUTH EVERY 8 Medical HOURS Branch NEEDED ondansetron 2023-0 Yes TAKE 1 [facility] 4 mg tablet 2-22 TABLET BY [facility] 00:00: MOUTH EVERY 12 Medical HOURS Branch NEEDED Butalbital- 2023-0 Yes TAKE 1 [facility] 2-22 CAPSULE BY [facility] en[facility]Caff 00:00: MOUTH [place] 40 EVERY 6 Medical mg per HOURS Branch capsule NEEDED meclizine 2023-0 Yes TAKE 1 [facility] 25 mg 2-22 TABLET BY [facility] tablet 00:00: MOUTH EVERY 8 Medical HOURS Branch NEEDED ondansetron 2023-0 Yes TAKE 1 [facility] 4 mg tablet 2-22 TABLET BY [facility] 00:00: [facility] EVERY 12 Medical HOURS Branch NEEDED Butalbital- 2023-0 Yes TAKE 1 [facility] Acetamin[facility] 2-22 CAPSULE BY [facility] en-Caff 00:00: MOUTH 40 EVERY 6 Medical mg per HOURS Branch capsule NEEDED meclizine 2023-0 Yes TAKE 1 [facility] 25 mg 2-22 TABLET BY [facility] tablet 00:00: MOUTH [place] EVERY 8 Medical HOURS Branch NEEDED ondansetron 2023-0 Yes TAKE 1 [facility] 4 mg tablet 2-22 TABLET BY [facility] 00:00: MOUTH [place] EVERY 12 Medical HOURS Branch NEEDED Butalbital- 2023-0 Yes TAKE 1 [facility] 2-22 CAPSULE BY [facility] en-Caff 00:00: MOUTH [place] 50-300-40 00 EVERY 6 Medical mg per HOURS [facility] capsule NEEDED ondansetron 2023-0 Yes TAKE 1 [facility] 4 mg tablet 2-22 TABLET BY [facility] 00:00: MOUTH [place] 00 EVERY 12 Medical HOURS Branch NEEDED Butalbital- 2023-0 Yes TAKE 1 [facility] 2-22 CAPSULE BY [facility] en-Caff 00:00: MOUTH [place] 50-300-40 00 EVERY 6 Medical mg per HOURS [facility] capsule NEEDED ondansetron 2023-0 Yes TAKE 1 [facility] 4 mg tablet 2-22 TABLET BY [facility] 00:00: MOUTH [place] 00 EVERY 12 Medical HOURS Branch NEEDED Butalbital- 2023-0 Yes TAKE 1 [facility] 2-22 CAPSULE BY [facility] en-Caff 00:00: MOUTH [place] 50-300-40 00 EVERY 6 Medical mg per HOURS [facility] capsule NEEDED ondansetron 2023-0 Yes TAKE 1 [facility] 4 mg tablet 2-22 TABLET BY [facility] 00:00: MOUTH [place] 00 EVERY 12 Medical HOURS Branch NEEDED Butalbital- 2023-0 Yes TAKE 1 [facility] 2-22 CAPSULE BY [facility] en-Caff 00:00: MOUTH [place] 50-300-40 00 EVERY 6 Medical mg per HOURS [facility] capsule NEEDED ondansetron 2023-0 Yes TAKE 1 [facility] 4 mg tablet 2-22 TABLET BY [facility] 00:00: MOUTH [place] 00 EVERY 12 Medical HOURS Branch NEEDED Butalbital- 2023-0 Yes TAKE 1 [facility] 2-22 CAPSULE BY [facility] en-Caff 00:00: MOUTH [place] 50-300-40 00 EVERY 6 Medical mg per HOURS [facility] capsule NEEDED ondansetron 2023-0 Yes TAKE 1 [facility] 4 mg tablet 2-22 TABLET BY [facility] 00:00: MOUTH [place] 00 EVERY 12 Medical HOURS Branch NEEDED Butalbital- 2023-0 Yes TAKE 1 [facility] 2-22 CAPSULE BY [facility] en-Caff 00:00: MOUTH [place] 50-300-40 00 EVERY 6 Medical mg per HOURS Branch capsule NEEDED ondansetron 2023-0 Yes TAKE 1 [facility] 4 mg tablet 2-22 TABLET BY [facility] 00:00: MOUTH [place] 00 EVERY 12 Medical HOURS Branch NEEDED Butalbital- 2023-0 Yes TAKE 1 [facility]et[facility] 2-22 CAPSULE BY [facility] en-Caff 00:00: MOUTH [place] 50-300-40 00 EVERY 6 Medical mg per HOURS Branch capsule NEEDED ondansetron 2023-0 Yes TAKE 1 [facility] 4 mg tablet 2-22 TABLET BY [facility] 00:00: MOUTH [place] 00 EVERY 12 Medical HOURS Branch NEEDED Butalbital- 2023-0 Yes TAKE 1 [facility] 2-22 CAPSULE BY [facility] en-Caff 00:00: MOUTH [place] 50-300-40 00 EVERY 6 Medical mg per HOURS Branch capsule NEEDED ondansetron 2023-0 Yes TAKE 1 [facility] 4 mg tablet 2-22 TABLET BY [facility] 00:00: MOUTH [place] 00 EVERY 12 Medical HOURS Branch NEEDED Butalbital- 2023-0 Yes TAKE 1 [facility] 2-22 CAPSULE BY [facility] en-Caff 00:00: MOUTH [place] 50-300-40 00 EVERY 6 Medical mg per HOURS Branch capsule NEEDED ondansetron 2023-0 Yes TAKE 1 [facility] 4 mg tablet 2-22 TABLET BY [facility] 00:00: MOUTH [place] 00 EVERY 12 Medical HOURS Branch NEEDED Butalbital- 2023-0 Yes TAKE 1 [facility] 2-22 CAPSULE BY [facility] en-Caff 00:00: MOUTH [place] 50-300-40 00 EVERY 6 Medical mg per HOURS Branch capsule NEEDED ondansetron 2023-0 Yes TAKE 1 [facility] 4 mg tablet 2-22 TABLET BY [facility] 00:00: MOUTH [place] 00 EVERY 12 Medical HOURS Branch NEEDED Butalbital- 2023-0 Yes TAKE 1 [facility]et[facility] 2-22 CAPSULE BY [facility] en-Caff 00:00: MOUTH [place] 50-300-40 00 EVERY 6 Medical mg per HOURS Branch capsule NEEDED ondansetron 2023-0 Yes TAKE 1 [facility] 4 mg tablet 2-22 TABLET BY it[facility] 00:00: MOUTH [place] 00 EVERY 12 Medical HOURS Branch NEEDED Butalbital- 2023-0 Yes TAKE 1 [facility] 2-22 CAPSULE BY [facility] en-Caff 00:00: MOUTH [place] 50-300-40 00 EVERY 6 Medical mg per HOURS Branch capsule NEEDED ondansetron 2023-0 Yes TAKE 1 [facility] 4 mg tablet 2-22 TABLET BY [facility] 00:00: MOUTH [place] 00 EVERY 12 Medical HOURS Branch NEEDED Butalbital- 2023-0 Yes TAKE 1 [facility] 2-22 CAPSULE BY [facility] en-Caff 00:00: MOUTH [place] 50-300-40 00 EVERY 6 Medical mg per HOURS Branch capsule NEEDED ondansetron 2023-0 Yes TAKE 1 [facility] 4 mg tablet 2-22 TABLET BY [facility] 00:00: MOUTH [place] 00 EVERY 12 Medical HOURS Branch NEEDED Butalbital- 2023-0 Yes TAKE 1 [facility] 2-22 CAPSULE BY [facility] en-Caff 00:00: MOUTH [place] 50-300-40 00 EVERY 6 Medical mg per HOURS Branch capsule NEEDED ondansetron 2023-0 Yes TAKE 1 [facility] 4 mg tablet 2-22 TABLET BY [facility] 00:00: MOUTH [place] 00 EVERY 12 Medical HOURS Branch NEEDED Butalbital- 2023-0 Yes TAKE 1 [facility] 2-22 CAPSULE BY [facility] en-Caff 00:00: MOUTH [place] 50-300-40 00 EVERY 6 Medical mg per HOURS Branch capsule NEEDED ondansetron 2023-0 Yes TAKE 1 [facility] 4 mg tablet 2-22 TABLET BY [facility] 00:00: MOUTH [place] 00 EVERY 12 Medical HOURS Branch NEEDED Butalbital- 2023-0 Yes TAKE 1 [facility] 2-22 CAPSULE BY [facility] en-Caff 00:00: MOUTH [place] 50-300-40 00 EVERY 6 Medical mg per HOURS Branch capsule NEEDED ondansetron 2023-0 Yes TAKE 1 [facility] 4 mg tablet 2-22 TABLET BY [facility] 00:00: MOUTH [place] 00 EVERY 12 Medical HOURS Branch NEEDED Butalbital- 2023-0 Yes TAKE 1 [facility] 2-22 CAPSULE BY [facility] en-Caff 00:00: MOUTH [place] 50-300-40 00 EVERY 6 Medical mg per HOURS Branch capsule NEEDED ondansetron 2023-0 Yes TAKE 1 [facility] 4 mg tablet 2-22 TABLET BY [facility] 00:00: MOUTH [place] 00 EVERY 12 Medical HOURS Branch NEEDED Butalbital- 2023-0 Yes TAKE 1 [facility] 2-22 CAPSULE BY [facility] en-Caff 00:00: MOUTH [place] 50-300-40 00 EVERY 6 Medical mg per HOURS [facility] capsule NEEDED ondansetron 2023-0 Yes TAKE 1 [facility] 4 mg tablet 2-22 TABLET BY [facility] 00:00: MOUTH [place] 00 EVERY 12 Medical HOURS Branch NEEDED Butalbital- 2023-0 Yes TAKE 1 [facility] 2-22 CAPSULE BY [facility] en-Caff 00:00: MOUTH [place] 50-300-40 00 EVERY 6 Medical mg per HOURS Branch capsule NEEDED ondansetron 2023-0 Yes TAKE 1 [facility] 4 mg tablet 2-22 TABLET BY [facility] 00:00: MOUTH [place] 00 EVERY 12 Medical HOURS Branch NEEDED Butalbital- 2023-0 Yes TAKE 1 [facility] 2-22 CAPSULE BY [facility] en-Caff 00:00: MOUTH [place] 50-300-40 00 EVERY 6 Medical mg per HOURS Branch capsule NEEDED ondansetron 2023-0 Yes TAKE 1 [facility] 4 mg tablet 2-22 TABLET BY [facility] 00:00: MOUTH [place] 00 EVERY 12 Medical HOURS Branch NEEDED Butalbital- 2023-0 Yes TAKE 1 [facility] 2-22 CAPSULE BY [facility] en-Caff 00:00: MOUTH [place] 50-300-40 00 EVERY 6 Medical mg per HOURS Branch capsule NEEDED ondansetron 2023-0 Yes TAKE 1 [facility] 4 mg tablet 2-22 TABLET BY [facility] of 00:00: MOUTH [place] 00 EVERY 12 Medical HOURS Branch NEEDED Butalbital- 2023-0 Yes TAKE 1 [facility]et[facility] 2-22 CAPSULE BY [facility] en-Caff 00:00: MOUTH [place] 50-300-40 00 EVERY 6 Medical mg per HOURS Branch capsule NEEDED ondansetron 2023-0 Yes TAKE 1 [facility] 4 mg tablet 2-22 TABLET BY [facility] of 00:00: MOUTH [place] 00 EVERY 12 Medical HOURS Branch NEEDED Butalbital- 2023-0 Yes TAKE 1 [facility] 2-22 CAPSULE BY [facility] en-Caff 00:00: MOUTH [place] 50-300-40 00 EVERY 6 Medical mg per HOURS Branch capsule NEEDED ondansetron 2023-0 Yes TAKE 1 [facility] 4 mg tablet 2-22 TABLET BY [facility] of 00:00: MOUTH [place] 00 EVERY 12 Medical HOURS Branch NEEDED Butalbital- 2023-0 Yes TAKE 1 [facility]et[facility] 2-22 CAPSULE BY [facility] en-Caff 00:00: MOUTH [place] 50-300-40 00 EVERY 6 Medical mg per HOURS Branch capsule NEEDED ondansetron 2023-0 Yes TAKE 1 [facility] 4 mg tablet 2-22 TABLET BY [facility] of 00:00: MOUTH [place] 00 EVERY 12 Medical HOURS Branch NEEDED Butalbital- 2023-0 Yes TAKE 1 [facility] 2-22 CAPSULE BY [facility] en-Caff 00:00: MOUTH [place] 50-300-40 00 EVERY 6 Medical mg per HOURS Branch capsule NEEDED ondansetron 2023-0 Yes TAKE 1 [facility] 4 mg tablet 2-22 TABLET BY [facility] 00:00: MOUTH [place] 00 EVERY 12 Medical HOURS Branch NEEDED Butalbital- 2023-0 Yes TAKE 1 [facility]et[facility] 2-22 CAPSULE BY [facility] en-Caff 00:00: MOUTH [place] 50-300-40 00 EVERY 6 Medical mg per HOURS [facility] capsule NEEDED ondansetron 2023-0 Yes TAKE 1 [facility] 4 mg tablet 2-22 TABLET BY [facility] of 00:00: MOUTH [place] 00 EVERY 12 Medical HOURS Branch NEEDED Butalbital- 2023-0 Yes TAKE 1 [facility] Acet[facility] 2-22 CAPSULE BY [facility] en-Caff 00:00: MOUTH [place] 50-300-40 00 EVERY 6 Medical mg per HOURS Branch capsule NEEDED ondansetron 2023-0 Yes TAKE 1 [facility] 4 mg tablet 2-22 TABLET BY [facility] of 00:00: MOUTH [place] 00 EVERY 12 Medical HOURS Branch NEEDED Butalbital- 2023-0 Yes TAKE 1 [facility] Acet[facility] 2-22 CAPSULE BY [facility] en-Caff 00:00: MOUTH [place] 50-300-40 00 EVERY 6 Medical mg per HOURS [facility] capsule NEEDED ondansetron 2023-0 Yes TAKE 1 [facility] 4 mg tablet 2-22 TABLET BY [facility] of 00:00: MOUTH [place] 00 EVERY 12 Medical HOURS Branch NEEDED Butalbital- 2023-0 Yes TAKE 1 [facility] Acet[facility] 2-22 CAPSULE BY [facility] en-Caff 00:00: MOUTH [place] 50-300-40 00 EVERY 6 Medical mg per HOURS Branch capsule NEEDED ondansetron 2023-0 Yes TAKE 1 [facility] 4 mg tablet 2-22 TABLET BY [facility] of 00:00: MOUTH [place] 00 EVERY 12 Medical HOURS Branch NEEDED Butalbital- 2023-0 Yes TAKE 1 [facility] Acetamin[facility] 2-22 CAPSULE BY [facility] en-Caff 00:00: MOUTH [place] 50-300-40 00 EVERY 6 Medical mg per HOURS Branch capsule NEEDED ondansetron 2023-0 Yes TAKE 1 [facility] 4 mg tablet 2-22 TABLET BY [facility] of 00:00: MOUTH [place] 00 EVERY 12 Medical HOURS Branch NEEDED Butalbital- 2023-0 Yes TAKE 1 [facility] Acetamin[facility] 2-22 CAPSULE BY [facility] en-Caff 00:00: MOUTH [place] 50-300-40 00 EVERY 6 Medical mg per HOURS Branch capsule NEEDED ondansetron 2023-0 Yes TAKE 1 [facility] 4 mg tablet 2-22 TABLET BY [facility] 00:00: MOUTH [place] 00 EVERY 12 Medical HOURS Branch NEEDED Butalbital- 2023-0 Yes TAKE 1 [facility] Acetamin[facility] 2-22 CAPSULE BY [facility] en-Caff 00:00: MOUTH [place] 50-300-40 00 EVERY 6 Medical mg per HOURS Branch capsule NEEDED ondansetron 2023-0 Yes TAKE 1 [facility] 4 mg tablet 2-22 TABLET BY [facility] of 00:00: MOUTH [place] 00 EVERY 12 Medical HOURS Branch NEEDED Butalbital- 2023-0 Yes TAKE 1 [facility] Acetamin[facility] 2-22 CAPSULE BY [facility] en-Caff 00:00: MOUTH [place] 50-300-40 00 EVERY 6 Medical mg per HOURS Branch capsule NEEDED ondansetron 2023-0 Yes TAKE 1 [facility] 4 mg tablet 2-22 TABLET BY [facility] of 00:00: MOUTH [place] 00 EVERY 12 Medical HOURS Branch NEEDED Butalbital- 2023-0 Yes TAKE 1 [facility] Acetamin[facility] 2-22 CAPSULE BY [facility] en-Caff 00:00: MOUTH [place] 50-300-40 00 EVERY 6 Medical mg per HOURS Branch capsule NEEDED ondansetron 2023-0 Yes TAKE 1 [facility] 4 mg tablet 2-22 TABLET BY [facility] 00:00: MOUTH [place] 00 EVERY 12 Medical HOURS Branch NEEDED Butalbital- 2023-0 Yes TAKE 1 [facility] Acetamin[facility] 2-22 CAPSULE BY [facility] en-Caff 00:00: MOUTH [place] 50-300-40 00 EVERY 6 Medical mg per HOURS Branch capsule NEEDED ondansetron 2023-0 Yes TAKE 1 [facility] 4 mg tablet 2-22 TABLET BY [facility] of 00:00: MOUTH [place] 00 EVERY 12 Medical HOURS Branch NEEDED Butalbital- 2023-0 Yes TAKE 1 [facility] Acetamin[facility] 2-22 CAPSULE BY [facility] en-Caff 00:00: MOUTH [place] 50-300-40 00 EVERY 6 Medical mg per HOURS [facility] capsule NEEDED ondansetron 2023-0 Yes TAKE 1 [facility] 4 mg tablet 2-22 TABLET BY [facility] of 00:00: MOUTH [place] 00 EVERY 12 Medical HOURS Branch NEEDED Butalbital- 2023-0 Yes TAKE 1 [facility] Acetamin[facility] 2-22 CAPSULE BY [facility] en-Caff 00:00: MOUTH [place] 50-300-40 00 EVERY 6 Medical mg per HOURS Branch capsule NEEDED ondansetron 2023-0 Yes TAKE 1 [facility] 4 mg tablet 2-22 TABLET BY [facility] of 00:00: MOUTH [place] 00 EVERY 12 Medical HOURS Branch NEEDED Butalbital- 2023-0 Yes TAKE 1 [facility] Acetaminoph 2-22 CAPSULE BY [facility] en-Caff 00:00: MOUTH [place] 50-300-40 00 EVERY 6 Medical mg per HOURS [facility] capsule NEEDED ondansetron 2023-0 Yes TAKE 1 [facility] 4 mg tablet 2-22 TABLET BY [facility] of 00:00: MOUTH [place] 00 EVERY 12 Medical HOURS Branch NEEDED Butalbital- 2023-0 Yes TAKE 1 [facility] Acetamin[facility] 2-22 CAPSULE BY [facility] en-Caff 00:00: MOUTH [place] 50-300-40 00 EVERY 6 Medical mg per HOURS [facility] capsule NEEDED ondansetron 2023-0 Yes TAKE 1 [facility] 4 mg tablet 2-22 TABLET BY [facility] of 00:00: MOUTH [place] 00 EVERY 12 Medical HOURS Branch NEEDED Butalbital- 2023-0 Yes TAKE 1 [facility] Acetaminoph 2-22 CAPSULE BY [facility] en-Caff 00:00: MOUTH [place] 50-300-40 00 EVERY 6 Medical mg per HOURS [facility] capsule NEEDED ondansetron 2023-0 Yes TAKE 1 [facility] 4 mg tablet 2-22 TABLET BY [facility] 00:00: MOUTH 00 EVERY 12 Medical HOURS Branch NEEDED Butalbital- 2023-0 Yes TAKE 1 [facility] Acetaminoph 2-22 CAPSULE BY [facility] en-Caff 00:00: MOUTH [place] 50-300-40 00 EVERY 6 Medical mg per HOURS [facility] capsule NEEDED ondansetron 2023-0 Yes TAKE 1 [facility] 4 mg tablet 2-22 TABLET BY [facility] 00:00: MOUTH [place] 00 EVERY 12 Medical HOURS Branch NEEDED Butalbital- 2023-0 Yes TAKE 1 [facility] Acetaminoph 2-22 CAPSULE BY [facility] en-Caff 00:00: MOUTH [place] 50-300-40 00 EVERY 6 Medical mg per HOURS [facility] capsule NEEDED ondansetron 2023-0 Yes TAKE 1 [facility] 4 mg tablet 2-22 TABLET BY [facility] 00:00: MOUTH 00 EVERY 12 Medical HOURS Branch NEEDED Butalbital- 2023-0 Yes TAKE 1 [facility] Acetamin[facility] 2-22 CAPSULE BY [facility] en-Caff 00:00: MOUTH [place] 50-300-40 00 EVERY 6 Medical mg per HOURS [facility] capsule NEEDED ondansetron 2023-0 Yes TAKE 1 [facility] 4 mg tablet 2-22 TABLET BY [facility] 00:00: MOUTH [place] 00 EVERY 12 Medical HOURS Branch NEEDED Butalbital- 2023-0 Yes TAKE 1 [facility] Acetaminoph 2-22 CAPSULE BY [facility] en-Caff 00:00: MOUTH [place] 50-300-40 00 EVERY 6 Medical mg per HOURS [facility] capsule NEEDED ondansetron 2023-0 Yes TAKE 1 [facility] 4 mg tablet 2-22 TABLET BY [facility] of 00:00: MOUTH [place] 00 EVERY 12 Medical HOURS Branch NEEDED Butalbital- 2023-0 Yes TAKE 1 [facility] Acetaminoph 2-22 CAPSULE BY [facility] en-Caff 00:00: MOUTH [place] 50-300-40 00 EVERY 6 Medical mg per HOURS [facility] capsule NEEDED ondansetron 2023-0 Yes TAKE 1 [facility] 4 mg tablet 2-22 TABLET BY [facility] of 00:00: MOUTH [place] 00 EVERY 12 Medical HOURS Branch NEEDED Butalbital- 2023-0 Yes TAKE 1 [facility] Acetaminoph 2-22 CAPSULE BY [facility] en-Caff 00:00: MOUTH [place] 50-300-40 00 EVERY 6 Medical mg per HOURS [facility] capsule NEEDED ondansetron 2023-0 Yes TAKE 1 [facility] 4 mg tablet 2-22 TABLET BY [facility] 00:00: MOUTH [place] 00 EVERY 12 Medical HOURS Branch NEEDED Butalbital- 2023-0 Yes TAKE 1 [facility] Acetaminoph 2-22 CAPSULE BY [facility] en-Caff 00:00: MOUTH [place] 50-300-40 00 EVERY 6 Medical mg per HOURS [facility] capsule NEEDED ondansetron 2023-0 Yes TAKE 1 [facility] 4 mg tablet 2-22 TABLET BY [facility] 00:00: MOUTH [place] 00 EVERY 12 Medical HOURS Branch NEEDED Butalbital- 2023-0 Yes TAKE 1 [facility] Acetaminoph 2-22 CAPSULE BY [facility] en-Caff 00:00: MOUTH [place] 50-300-40 00 EVERY 6 Medical mg per HOURS [facility] capsule NEEDED ondansetron 2023-0 Yes TAKE 1 [facility] 4 mg tablet 2-22 TABLET BY [facility] 00:00: MOUTH [place] 00 EVERY 12 Medical HOURS Branch NEEDED Butalbital- 2023-0 Yes TAKE 1 [facility] Acetamin[facility] 2-22 CAPSULE BY [facility] en-Caff 00:00: MOUTH [place] 50-300-40 00 EVERY 6 Medical mg per HOURS [facility] capsule NEEDED ondansetron 2023-0 Yes TAKE 1 [facility] 4 mg tablet 2-22 TABLET BY [facility] 00:00: MOUTH [place] 00 EVERY 12 Medical HOURS Branch NEEDED Butalbital- 2023-0 Yes TAKE 1 [facility] Acetamin[facility] 2-22 CAPSULE BY [facility] en-Caff 00:00: MOUTH [place] 50-300-40 00 EVERY 6 Medical mg per HOURS [facility] capsule NEEDED ondansetron 2023-0 Yes TAKE 1 [facility] 4 mg tablet 2-22 TABLET BY [facility] 00:00: MOUTH [place] 00 EVERY 12 Medical HOURS Branch NEEDED Butalbital- 2023-0 Yes TAKE 1 [facility] Acetaminoph 2-22 CAPSULE BY [facility] en-Caff 00:00: MOUTH [place] 50-300-40 00 EVERY 6 Medical mg per HOURS [facility] capsule NEEDED ondansetron 2023-0 Yes TAKE 1 [facility] 4 mg tablet 2-22 TABLET BY [facility] 00:00: MOUTH [place] 00 EVERY 12 Medical HOURS Branch NEEDED Butalbital- 2023-0 Yes TAKE 1 [facility] Acet[facility] 2-22 CAPSULE BY [facility] en-Caff 00:00: MOUTH [place] 50-300-40 00 EVERY 6 Medical mg per HOURS [facility] capsule NEEDED ondansetron 2023-0 Yes TAKE 1 [facility] 4 mg tablet 2-22 TABLET BY [facility] 00:00: MOUTH 00 EVERY 12 Medical HOURS Branch NEEDED Butalbital- 2023-0 Yes TAKE 1 [facility] Acetamin[facility] 2-22 CAPSULE BY [facility] en-Caff 00:00: MOUTH [place] 50-300-40 00 EVERY 6 Medical mg per HOURS [facility] capsule NEEDED ondansetron 2023-0 Yes TAKE 1 [facility] 4 mg tablet 2-22 TABLET BY [facility] 00:00: MOUTH [place] 00 EVERY 12 Medical HOURS Branch NEEDED Butalbital- 2023-0 Yes TAKE 1 [facility] Acetamin[facility] 2-22 CAPSULE BY [facility] en-Caff 00:00: MOUTH [place] 50-300-40 00 EVERY 6 Medical mg per HOURS [facility] capsule NEEDED ondansetron 2023-0 Yes TAKE 1 [facility] 4 mg tablet 2-22 TABLET BY [facility] 00:00: MOUTH 00 EVERY 12 Medical HOURS [facility] NEEDED Butalbital- 2023-0 Yes TAKE 1 [facility] Acet[facility] 2-22 CAPSULE BY [facility] en-Caff 00:00: MOUTH [place] 50-300-40 00 EVERY 6 Medical mg per HOURS [facility] capsule NEEDED ondansetron 2023-0 Yes TAKE 1 [facility] 4 mg tablet 2-22 TABLET BY [facility] 00:00: MOUTH 00 EVERY 12 Medical HOURS [facility] NEEDED Butalbital- 2023-0 Yes TAKE 1 [facility]et[facility] 2-22 CAPSULE BY [facility] en-Caff 00:00: MOUTH [place] 50-300-40 00 EVERY 6 Medical mg per HOURS [facility] capsule NEEDED ondansetron 2023-0 Yes TAKE 1 [facility] 4 mg tablet 2-22 TABLET BY [facility] 00:00: MOUTH [place] 00 EVERY 12 Medical HOURS [facility] NEEDED Butalbital- 2023-0 Yes TAKE 1 [facility]et[facility] 2-22 CAPSULE BY [facility] en-Caff 00:00: MOUTH [place] 50-300-40 00 EVERY 6 Medical mg per HOURS [facility] capsule NEEDED ondansetron 2023-0 Yes TAKE 1 [facility] 4 mg tablet 2-22 TABLET BY [facility] 00:00: MOUTH [place] 00 EVERY 12 Medical HOURS [facility] NEEDED Butalbital- 2023-0 Yes TAKE 1 [facility] 2-22 CAPSULE BY [facility] en-Caff 00:00: MOUTH [place] 50-300-40 00 EVERY 6 Medical mg per HOURS [facility] capsule NEEDED ondansetron 2023-0 Yes TAKE 1 [facility] 4 mg tablet 2-22 TABLET BY [facility] 00:00: MOUTH [place] 00 EVERY 12 Medical HOURS [facility] NEEDED Butalbital- 2023-0 Yes TAKE 1 [facility] 2-22 CAPSULE BY [facility] en-Caff 00:00: MOUTH [place] 50-300-40 00 EVERY 6 Medical mg per HOURS [facility] capsule NEEDED ondansetron 2023-0 Yes TAKE 1 [facility] 4 mg tablet 2-22 TABLET BY [facility] 00:00: MOUTH [place] 00 EVERY 12 Medical HOURS [facility] NEEDED Butalbital- 2023-0 Yes TAKE 1 [facility] 2-22 CAPSULE BY [facility] en-Caff 00:00: MOUTH [place] 50-300-40 00 EVERY 6 Medical mg per HOURS [facility] capsule NEEDED ondansetron 2023-0 Yes TAKE 1 [facility] 4 mg tablet 2-22 TABLET BY [facility] 00:00: MOUTH [place] 00 EVERY 12 Medical HOURS [facility] NEEDED Butalbital- 2023-0 Yes TAKE 1 [facility]et[facility] 2-22 CAPSULE BY [facility] en-Caff 00:00: MOUTH [place] 50-300-40 00 EVERY 6 Medical mg per HOURS [facility] capsule NEEDED ondansetron 2023-0 Yes TAKE 1 [facility] 4 mg tablet 2-22 TABLET BY [facility] 00:00: MOUTH [place] 00 EVERY 12 Medical HOURS [facility] NEEDED Butalbital- 2023-0 Yes TAKE 1 [facility]et[facility] 2-22 CAPSULE BY [facility] en-Caff 00:00: MOUTH [place] 50-300-40 00 EVERY 6 Medical mg per HOURS [facility] capsule NEEDED ondansetron 2023-0 Yes TAKE 1 [facility] 4 mg tablet 2-22 TABLET BY [facility] 00:00: MOUTH [place] 00 EVERY 12 Medical HOURS [facility] NEEDED Butalbital- 2023-0 Yes TAKE 1 [facility]et[facility] 2-22 CAPSULE BY [facility] en-Caff 00:00: MOUTH [place] 50-300-40 00 EVERY 6 Medical mg per HOURS [facility] capsule NEEDED ondansetron 2023-0 Yes TAKE 1 [facility] 4 mg tablet 2-22 TABLET BY [facility] 00:00: MOUTH [place] 00 EVERY 12 Medical HOURS [facility] NEEDED Butalbital- 2023-0 Yes TAKE 1 [facility] 2-22 CAPSULE BY [facility] en-Caff 00:00: MOUTH [place] 50-300-40 00 EVERY 6 Medical mg per HOURS [facility] capsule NEEDED ondansetron 2023-0 Yes TAKE 1 [facility] 4 mg tablet 2-22 TABLET BY [facility] 00:00: MOUTH 00 EVERY 12 Medical HOURS [facility] NEEDED Butalbital- 2023-0 Yes TAKE 1 [facility]et[facility] 2-22 CAPSULE BY [facility] en-Caff 00:00: MOUTH [place] 50-300-40 00 EVERY 6 Medical mg per HOURS [facility] capsule NEEDED ondansetron 2023-0 Yes TAKE 1 [facility] 4 mg tablet 2-22 TABLET BY [facility] 00:00: MOUTH [place] 00 EVERY 12 Medical HOURS [facility] NEEDED Butalbital- 2023-0 Yes TAKE 1 [facility]et[facility] 2-22 CAPSULE BY [facility] en-Caff 00:00: MOUTH [place] 50-300-40 00 EVERY 6 Medical mg per HOURS [facility] capsule NEEDED ondansetron 2023-0 Yes TAKE 1 [facility] 4 mg tablet 2-22 TABLET BY [facility] 00:00: MOUTH 00 EVERY 12 Medical HOURS [facility] NEEDED Butalbital- 2023-0 Yes TAKE 1 [facility]et[facility] 2-22 CAPSULE BY [facility] en-Caff 00:00: MOUTH [place] 50-300-40 00 EVERY 6 Medical mg per HOURS [facility] capsule NEEDED ondansetron 2023-0 Yes TAKE 1 [facility] 4 mg tablet 2-22 TABLET BY [facility] 00:00: MOUTH [place] 00 EVERY 12 Medical HOURS Branch NEEDED Butalbital- 2023-0 Yes TAKE 1 [facility]et[facility] 2-22 CAPSULE BY [facility] en-Caff 00:00: MOUTH [place] 50-300-40 00 EVERY 6 Medical mg per HOURS [facility] capsule NEEDED ondansetron 2023-0 Yes TAKE 1 [facility] 4 mg tablet 2-22 TABLET BY [facility] 00:00: MOUTH [place] 00 EVERY 12 Medical HOURS Branch NEEDED Butalbital- 2023-0 Yes TAKE 1 [facility] Acetaminoph 2-22 CAPSULE BY [facility] en-Caff 00:00: MOUTH [place] 50-300-40 00 EVERY 6 Medical mg per HOURS [facility] capsule NEEDED ondansetron 2023-0 Yes TAKE 1 [facility] 4 mg tablet 2-22 TABLET BY [facility] 00:00: MOUTH [place] 00 EVERY 12 Medical HOURS [facility] NEEDED Butalbital- 2023-0 Yes TAKE 1 [facility]et[facility]oph 2-22 CAPSULE BY [facility] en-Caff 00:00: MOUTH [place] 50-300-40 00 EVERY 6 Medical mg per HOURS [facility] capsule NEEDED ondansetron 2023-0 Yes TAKE 1 [facility] 4 mg tablet 2-22 TABLET BY [facility] 00:00: MOUTH [place] 00 EVERY 12 Medical HOURS Branch NEEDED Butalbital- 2023-0 Yes TAKE 1 [facility] Acet[facility]oph 2-22 CAPSULE BY [facility] en-Caff 00:00: MOUTH [place] 50-300-40 00 EVERY 6 Medical mg per HOURS [facility] capsule NEEDED ondansetron 2023-0 Yes TAKE 1 [facility] 4 mg tablet 2-22 TABLET BY [facility] 00:00: MOUTH [place] 00 EVERY 12 Medical HOURS [facility] NEEDED Butalbital- 2023-0 Yes TAKE 1 [facility] Acetaminoph 2-22 CAPSULE BY [facility] en-Caff 00:00: MOUTH [place] 50-300-40 00 EVERY 6 Medical mg per HOURS [facility] capsule NEEDED ondansetron 2023-0 Yes TAKE 1 [facility] 4 mg tablet 2-22 TABLET BY [facility] 00:00: MOUTH [place] 00 EVERY 12 Medical HOURS [facility] NEEDED Butalbital- 2023-0 Yes TAKE 1 [facility] Acetaminoph 2-22 CAPSULE BY [facility] en-Caff 00:00: MOUTH [place] 50-300-40 00 EVERY 6 Medical mg per HOURS [facility] capsule NEEDED ondansetron 2023-0 Yes TAKE 1 [facility] 4 mg tablet 2-22 TABLET BY [facility] 00:00: MOUTH [place] 00 EVERY 12 Medical HOURS [facility] NEEDED Butalbital- 2023-0 Yes TAKE 1 [facility] Acetaminoph 2-22 CAPSULE BY it y of en-Caff 00:00: MOUTH [place] 50-300-40 00 EVERY 6 Medical mg per HOURS Branch capsule NEEDED ondansetron 2023-0 Yes TAKE 1 [facility] 4 mg tablet 2-22 TABLET BY ity of 00:00: MOUTH [place] 00 EVERY 12 Medical HOURS Branch NEEDED Butalbital- 2023-0 Yes TAKE 1 [facility] Acetaminoph 2-22 CAPSULE BY it y of en-Caff 00:00: MOUTH [place] 50-300-40 00 EVERY 6 Medical mg per HOURS Branch capsule NEEDED ondansetron 2023-0 Yes TAKE 1 [facility] 4 [facility] tablet 2-22 TABLET BY [facility] 00:00: MOUTH [place] 00 EVERY 12 Medical HOURS Branch NEEDED Butalbital- 2023-0 Yes TAKE 1 [facility] Acetaminoph 2-22 CAPSULE BY [facility] y of en-Caff 00:00: MOUTH [place] 50-300-40 00 EVERY 6 Medical mg per HOURS Branch capsule NEEDED ondansetron 2023-0 Yes TAKE 1 [facility] 4 mg tablet 2-22 TABLET BY [facility] 00:00: MOUTH [place] 00 EVERY 12 Medical HOURS Branch NEEDED Butalbital- 2023-0 Yes TAKE 1 [facility] Acetaminoph 2-22 CAPSULE BY [facility] en-Caff 00:00: MOUTH [place] 50-300-40 00 EVERY 6 Medical mg per HOURS Branch capsule NEEDED ondansetron 2023-0 Yes TAKE 1 [facility] 4 mg tablet 2-22 TABLET BY [facility] 00:00: MOUTH [place] 00 EVERY 12 Medical HOURS Branch NEEDED Butalbital- 2023-0 Yes TAKE 1 [facility] Acetaminoph 2-22 CAPSULE BY [facility] en-Caff 00:00: MOUTH [place] 50-300-40 00 EVERY 6 Medical mg per HOURS Branch capsule NEEDED ondansetron 2023-0 Yes TAKE 1 [facility] 4 mg tablet 2-22 TABLET BY [facility] 00:00: MOUTH [place] 00 EVERY 12 Medical HOURS Branch NEEDED Butalbital- 2023-0 Yes TAKE 1 [facility] Acetaminoph 2-22 CAPSULE BY [facility] of en-Caff 00:00: MOUTH [place] 50-300-40 00 EVERY 6 Medical mg per HOURS Branch capsule NEEDED ondansetron 2023-0 Yes TAKE 1 [facility] 4 mg tablet 2-22 TABLET BY [facility] 00:00: MOUTH [place] 00 EVERY 12 Medical HOURS Branch NEEDED Butalbital- 2023-0 Yes TAKE 1 [facility] Acetaminoph 2-22 CAPSULE BY [facility] y of en-Caff 00:00: MOUTH [place] 50-300-40 00 EVERY 6 Medical mg per HOURS Branch capsule NEEDED ondansetron 2023-0 Yes TAKE 1 [facility] 4 mg tablet 2-22 TABLET BY [facility] 00:00: MOUTH [place] 00 EVERY 12 Medical HOURS Branch NEEDED Butalbital- 2023-0 Yes TAKE 1 [facility] Acetaminoph 2-22 CAPSULE BY [facility] y [facility] en-Caff 00:00: MOUTH [place] 50-300-40 00 EVERY 6 Medical mg per HOURS Branch capsule NEEDED ondansetron 2023-0 Yes TAKE 1 [facility] 4 mg tablet 2-22 TABLET BY [facility] 00:00: MOUTH [place] 00 EVERY 12 Medical HOURS Branch NEEDED Butalbital- 2023-0 Yes TAKE 1 [facility] Acetaminoph 2-22 CAPSULE BY [facility] en-Caff 00:00: MOUTH [place] 50-300-40 00 EVERY 6 Medical mg per HOURS Branch capsule NEEDED ondansetron 2023-0 Yes TAKE 1 [facility] 4 mg tablet 2-22 TABLET BY [facility] 00:00: MOUTH [place] 00 EVERY 12 Medical HOURS Branch NEEDED Butalbital- 2023-0 Yes TAKE 1 [facility] Acetaminoph 2-22 CAPSULE BY [facility] en-Caff 00:00: MOUTH [place] 50-300-40 00 EVERY 6 Medical mg per HOURS Branch capsule NEEDED ondansetron 2023-0 Yes TAKE 1 [facility] 4 mg tablet 2-22 TABLET BY [facility] 00:00: MOUTH [place] 00 EVERY 12 Medical HOURS Branch NEEDED Butalbital- 2023-0 Yes TAKE 1 [facility] Acetaminoph 2-22 CAPSULE BY [facility] en-Caff 00:00: MOUTH [place] 50-300-40 00 EVERY 6 Medical mg per HOURS Branch capsule NEEDED ondansetron 2023-0 Yes TAKE 1 [facility] 4 mg tablet 2-22 TABLET BY [facility] 00:00: MOUTH [place] 00 EVERY 12 Medical HOURS Branch NEEDED Butalbital- 2023-0 Yes TAKE 1 [facility] Acetaminoph 2-22 CAPSULE BY [facility] en-Caff 00:00: MOUTH [place] 50-300-40 00 EVERY 6 Medical mg per HOURS Branch capsule NEEDED ondansetron 2023-0 Yes TAKE 1 [facility] 4 mg tablet 2-22 TABLET BY [facility] 00:00: MOUTH [place] 00 EVERY 12 Medical HOURS Branch NEEDED Butalbital- 2023-0 Yes TAKE 1 [facility] Acetaminoph 2-22 CAPSULE BY [facility] en-Caff 00:00: MOUTH [place] 50-300-40 00 EVERY 6 Medical mg per HOURS Branch capsule NEEDED ondansetron 2023-0 Yes TAKE 1 [facility] 4 mg tablet 2-22 TABLET BY [facility] 00:00: MOUTH [place] 00 EVERY 12 Medical HOURS Branch NEEDED Butalbital- 2023-0 Yes TAKE 1 [facility] Acetaminoph 2-22 CAPSULE BY [facility] of en-Caff 00:00: MOUTH [place] 50-300-40 00 EVERY 6 Medical mg per HOURS Branch capsule NEEDED ondansetron 2023-0 Yes TAKE 1 [facility] 4 mg tablet 2-22 TABLET BY [facility] 00:00: MOUTH [place] 00 EVERY 12 Medical HOURS Branch NEEDED Butalbital- 2023-0 Yes TAKE 1 [facility] Acetaminoph 2-22 CAPSULE BY [facility] en-Caff 00:00: MOUTH [place] 50-300-40 00 EVERY 6 Medical mg per HOURS Branch capsule NEEDED ondansetron 2023-0 Yes TAKE 1 [facility] 4 mg tablet 2-22 TABLET BY [facility] 00:00: MOUTH [place] 00 EVERY 12 Medical HOURS Branch NEEDED Butalbital- 2023-0 Yes TAKE 1 [facility] Acetaminoph 2-22 CAPSULE BY [facility] en-Caff 00:00: MOUTH [place] 50-300-40 00 EVERY 6 Medical mg per HOURS Branch capsule NEEDED ondansetron 2023-0 Yes TAKE 1 [facility] 4 mg tablet 2-22 TABLET BY [facility] 00:00: MOUTH [place] 00 EVERY 12 Medical HOURS Branch NEEDED Butalbital- 2023-0 Yes TAKE 1 [facility] Acetaminoph 2-22 CAPSULE BY [facility] en-Caff 00:00: MOUTH [place] 50-300-40 00 EVERY 6 Medical mg per HOURS Branch capsule NEEDED ondansetron 2023-0 Yes TAKE 1 [facility] 4 mg tablet 2-22 TABLET BY [facility] 00:00: MOUTH [place] 00 EVERY 12 Medical HOURS Branch NEEDED Butalbital- 2023-0 Yes TAKE 1 [facility] Acetaminoph 2-22 CAPSULE BY [facility] en-Caff 00:00: MOUTH [place] 50-300-40 00 EVERY 6 Medical mg per HOURS Branch capsule NEEDED ondansetron 2023-0 Yes TAKE 1 [facility] 4 mg tablet 2-22 TABLET BY [facility] 00:00: MOUTH [place] 00 EVERY 12 Medical HOURS Branch NEEDED Butalbital- 2023-0 Yes TAKE 1 [facility] Acetaminoph 2-22 CAPSULE BY [facility] en-Caff 00:00: MOUTH [place] 50-300-40 00 EVERY 6 Medical mg per HOURS Branch capsule NEEDED ondansetron 2023-0 Yes TAKE 1 [facility] 4 mg tablet 2-22 TABLET BY [facility] 00:00: MOUTH [place] 00 EVERY 12 Medical HOURS Branch NEEDED Butalbital- 2023-0 Yes TAKE 1 [facility] Acetaminoph 2-22 CAPSULE BY [facility] en-Caff 00:00: MOUTH [place] 50-300-40 00 EVERY 6 Medical mg per HOURS Branch capsule NEEDED ondansetron 2023-0 Yes TAKE 1 [facility] 4 mg tablet 2-22 TABLET BY [facility] 00:00: MOUTH [place] 00 EVERY 12 Medical HOURS Branch NEEDED Butalbital- 2023-0 Yes TAKE 1 [facility] Acetaminoph 2-22 CAPSULE BY [facility] en-Caff 00:00: MOUTH [place] 50-300-40 00 EVERY 6 Medical mg per HOURS Branch capsule NEEDED ondansetron 2023-0 Yes TAKE 1 [facility] 4 mg tablet 2-22 TABLET BY [facility] 00:00: MOUTH [place] 00 EVERY 12 Medical HOURS Branch NEEDED Butalbital- 2023-0 Yes TAKE 1 [facility] Acetaminoph 2-22 CAPSULE BY [facility] en-Caff 00:00: MOUTH [place] 50-300-40 00 EVERY 6 Medical mg per HOURS Branch capsule NEEDED ondansetron 2023-0 Yes TAKE 1 [facility] 4 mg tablet 2-22 TABLET BY [facility] 00:00: MOUTH [place] 00 EVERY 12 Medical HOURS Branch NEEDED Butalbital- 2023-0 Yes TAKE 1 [facility] Acetaminoph 2-22 CAPSULE BY [facility] en-Caff 00:00: MOUTH [place] 50-300-40 00 EVERY 6 Medical mg per HOURS Branch capsule NEEDED ondansetron 2023-0 Yes TAKE 1 [facility] 4 mg tablet 2-22 TABLET BY [facility] 00:00: MOUTH [place] 00 EVERY 12 Medical HOURS Branch NEEDED Butalbital- 2023-0 Yes TAKE 1 [facility] Acetaminoph 2-22 CAPSULE BY [facility] en-Caff 00:00: MOUTH [place] 50-300-40 00 EVERY 6 Medical mg per HOURS Branch capsule NEEDED ondansetron 2023-0 Yes TAKE 1 [facility] 4 mg tablet 2-22 TABLET BY [facility] 00:00: MOUTH [place] 00 EVERY 12 Medical HOURS Branch NEEDED Butalbital- 2023-0 Yes TAKE 1 [facility] Acetaminoph 2-22 CAPSULE BY [facility] en-Caff 00:00: MOUTH [place] 50-300-40 00 EVERY 6 Medical mg per HOURS Branch capsule NEEDED ondansetron 2023-0 Yes TAKE 1 [facility] 4 mg tablet 2-22 TABLET BY [facility] 00:00: MOUTH [place] 00 EVERY 12 Medical HOURS Branch NEEDED Butalbital- 2023-0 Yes TAKE 1 [facility] Acetaminoph 2-22 CAPSULE BY [facility] en-Caff 00:00: MOUTH [place] 50-300-40 00 EVERY 6 Medical mg per HOURS Branch capsule NEEDED ondansetron 2023-0 Yes TAKE 1 [facility] 4 mg tablet 2-22 TABLET BY [facility] 00:00: MOUTH [place] 00 EVERY 12 Medical HOURS Branch NEEDED Butalbital- 2023-0 Yes TAKE 1 [facility] Acetaminoph 2-22 CAPSULE BY [facility] en-Caff 00:00: MOUTH [place] 50-300-40 00 EVERY 6 Medical mg per HOURS Branch capsule NEEDED ondansetron 2023-0 Yes TAKE 1 [facility] 4 mg tablet 2-22 TABLET BY [facility] 00:00: MOUTH [place] 00 EVERY 12 Medical HOURS Branch NEEDED Butalbital- 2023-0 Yes TAKE 1 [facility] Acetaminoph 2-22 CAPSULE BY [facility] en-Caff 00:00: MOUTH [place] 50-300-40 00 EVERY 6 Medical mg per HOURS Branch capsule NEEDED ondansetron 2023-0 Yes TAKE 1 [facility] 4 mg tablet 2-22 TABLET BY [facility] 00:00: MOUTH [place] 00 EVERY 12 Medical HOURS Branch NEEDED Butalbital- 2023-0 Yes TAKE 1 [facility] Acetaminoph 2-22 CAPSULE BY [facility] en-Caff 00:00: MOUTH [place] 50-300-40 00 EVERY 6 Medical mg per HOURS Branch capsule NEEDED ondansetron 2023-0 Yes TAKE 1 [facility] 4 mg tablet 2-22 TABLET BY [facility] 00:00: MOUTH [place] 00 EVERY 12 Medical HOURS Branch NEEDED Butalbital- 2023-0 Yes TAKE 1 [facility] Acetaminoph 2-22 CAPSULE BY [facility] en-Caff 00:00: MOUTH [place] 50-300-40 00 EVERY 6 Medical mg per HOURS Branch capsule NEEDED ondansetron 2023-0 Yes TAKE 1 [facility] 4 mg tablet 2-22 TABLET BY [facility] 00:00: MOUTH [place] 00 EVERY 12 Medical HOURS Branch NEEDED Butalbital- 2023-0 Yes TAKE 1 [facility] Acetaminoph 2-22 CAPSULE BY [facility] en-Caff 00:00: MOUTH [place] 50-300-40 00 EVERY 6 Medical mg per HOURS Branch capsule NEEDED ondansetron 2023-0 Yes TAKE 1 [facility] 4 mg tablet 2-22 TABLET BY [facility] 00:00: MOUTH [place] 00 EVERY 12 Medical HOURS Branch NEEDED Butalbital- 2023-0 Yes TAKE 1 [facility] Acetaminoph 2-22 CAPSULE BY [facility] of en-Caff 00:00: MOUTH [place] 50-300-40 00 EVERY 6 Medical mg per HOURS Branch capsule NEEDED ondansetron 2023-0 Yes TAKE 1 [facility] 4 mg tablet 2-22 TABLET BY [facility] 00:00: MOUTH [place] 00 EVERY 12 Medical HOURS Branch NEEDED Butalbital- 2023-0 Yes TAKE 1 [facility] Acetaminoph 2-22 CAPSULE BY [facility] of en-Caff 00:00: MOUTH [place] 50-300-40 00 EVERY 6 Medical mg per HOURS Branch capsule NEEDED ondansetron 2023-0 Yes TAKE 1 [facility] 4 mg tablet 2-22 TABLET BY [facility] 00:00: MOUTH [place] 00 EVERY 12 Medical HOURS Branch NEEDED Butalbital- 2023-0 Yes TAKE 1 [facility] Acetaminoph 2-22 CAPSULE BY [facility] of en-Caff 00:00: MOUTH [place] 50-300-40 00 EVERY 6 Medical mg per HOURS Branch capsule NEEDED ondansetron 2023-0 Yes TAKE 1 [facility] 4 mg tablet 2-22 TABLET BY [facility] 00:00: MOUTH [place] 00 EVERY 12 Medical HOURS Branch NEEDED meclizine 2023-0 2023- No TAKE 1 [facility] 25 mg 2-22 - TABLET BY [facility] tablet 00:00: 00:00 MOUTH [place] 00 :00 EVERY 8 Medical HOURS Branch NEEDED meclizine 2022- No TAKE 1 [facility] 25 mg 2-22 -27 TABLET BY [facility] tablet 00:00: 00:00 MOUTH [place] 00 :00 EVERY 8 Medical HOURS Branch NEEDED escitalopra Yes [id number] 20mg Take 1 [facility] oxalate 2-21 tablet by [facility] o f (LEXAPRO) 00:00: mouth [place] 20 mg 00 the Medical tablet morning. [facility] escitalopra Yes [id number] 20mg Take 1 [facility] oxalate 2-21 tablet by [facility] o f ([facility]) 00:00: mouth [place] 20 mg 00 the Medical tablet morning. [facility] escitalopra Yes [id number] 20mg Take 1 [facility] oxalate 2-21 tablet by [facility] o f ([facility]) 00:00: mouth [place] 20 mg 00 the Medical tablet morning. [facility] escitalopra Yes [id number] 20mg Take 1 [facility] oxalate 2-21 tablet by [facility] o f ([facility]) 00:00: mouth [place] 20 mg 00 the Medical tablet morning. [facility] escitalopra Yes [id number] 20mg Take 1 [facility] oxalate 2-21 tablet by [facility] o f ([facility]) 00:00: mouth [place] 20 mg 00 the Medical tablet morning. [facility] escitalopra Yes [id number] 20mg Take 1 [facility] oxalate 2-21 tablet by [facility] o f ([facility]) 00:00: mouth [place] 20 mg 00 the Medical tablet morning. [facility] escitalopra Yes [id number] 20mg Take 1 [facility] oxalate 2-21 tablet by [facility] o f ([facility]) 00:00: mouth [place] 20 mg 00 the Medical tablet morning. [facility] escitalopra Yes [id number] 20mg Take 1 [facility] oxalate 2-21 tablet by [facility] o f ([facility]) 00:00: mouth [place] 20 mg 00 the Medical tablet morning. [facility] escitalopra 2023-0 Yes [id number] 20mg Take 1 [facility] oxalate 2-21 tablet by [facility] o f ([facility]) 00:00: mouth [place] 20 mg 00 the Medical tablet morning. [facility] escitalopra 2022-0 Yes [id number] 20mg Take 1 [facility] oxalate 2-21 tablet by [facility] o f ([facility]) 00:00: mouth [place] 20 mg 00 the Medical tablet morning. [facility] escitalopra 2022-0 Yes [id number] 20mg Take 1 [facility] oxalate 2-21 tablet by [facility] o f ([facility]) 00:00: mouth [place] 20 mg 00 the Medical tablet morning. [facility] escitalopra 2022-0 Yes [id number] 20mg Take 1 [facility] oxalate 2-21 tablet by [facility] o f ([facility]) 00:00: mouth [place] 20 mg 00 the Medical tablet morning. [facility] escitalopra 2022-0 Yes [id number] 20mg Take 1 [facility] oxalate 2-21 tablet by [facility] o f ([facility]) 00:00: mouth [place] 20 mg 00 the Medical tablet morning. [facility] escitalopra 2022-0 Yes [id number] 20mg Take 1 [facility] oxalate 2-21 tablet by [facility] o f ([facility]) 00:00: mouth [place] 20 mg 00 the Medical tablet morning. Branch escitalopra 2022-0 Yes [id number] 20mg Take 1 [facility] oxalate 2-21 tablet by [facility] o f ([facility]) 00:00: mouth [place] 20 mg 00 the Medical tablet morning. Branch escitalopra 2022-0 Yes [id number] 20mg Take 1 [facility] oxalate 2-21 tablet by [facility] o f ([facility]) 00:00: mouth [place] 20 mg 00 the Medical tablet morning. [facility] escitalopra 2022-0 Yes [id number] 20mg Take 1 [facility] oxalate 2-21 tablet by [facility] o f ([facility]) 00:00: mouth [place] 20 mg 00 the Medical tablet morning. [facility] escitalopra 2022-0 Yes [id number] 20mg Take 1 [facility] oxalate 2-21 tablet by [facility] o f ([facility]) 00:00: mouth [place] 20 mg 00 the Medical tablet morning. [facility] escitalopra 2022-0 Yes [id number] 20mg Take 1 [facility] oxalate 2-21 tablet by [facility] o f ([facility]) 00:00: mouth [place] 20 mg 00 the Medical tablet morning. [facility] escitalopra 2022-0 Yes [id number] 20mg Take 1 [facility] oxalate 2-21 tablet by [facility] o f ([facility]) 00:00: mouth [place] 20 mg 00 the Medical tablet morning. [facility] escitalopra 2022-0 Yes [id number] 20mg Take 1 [facility] oxalate 2-21 tablet by [facility] o f ([facility]) 00:00: mouth [place] 20 mg 00 the Medical tablet morning. [facility] escitalopra 2022-0 Yes [id number] 20mg Take 1 [facility] oxalate 2-21 tablet by [facility] o f ([facility]) 00:00: mouth [place] 20 mg 00 the Medical tablet morning. Branch escitalopra 2022-0 Yes [id number] 20mg Take 1 [facility] oxalate 2-21 tablet by [facility] o f ([facility]) 00:00: mouth [place] 20 mg 00 the Medical tablet morning. [facility] escitalopra 2022-0 Yes [id number] 20mg Take 1 [facility] oxalate 2-21 tablet by [facility] o f ([facility]) 00:00: mouth [place] 20 mg 00 the Medical tablet morning. [facility] escitalopra 2022-0 Yes [id number] 20mg Take 1 [facility] oxalate 2-21 tablet by [facility] o f ([facility]) 00:00: mouth [place] 20 mg 00 the Medical tablet morning. [facility] escitalopra 2022-0 Yes [id number] 20mg Take 1 [facility] oxalate 2-21 tablet by [facility] o f ([facility]) 00:00: mouth [place] 20 mg 00 the Medical tablet morning. [facility] escitalopra 2022-0 Yes [id number] 20mg Take 1 [facility] oxalate 2-21 tablet by [facility] o f ([facility]) 00:00: mouth [place] 20 mg 00 the Medical tablet morning. [facility] escitalopra 2022-0 Yes [id number] 20mg Take 1 [facility] oxalate 2-21 tablet by [facility] o f ([facility]) 00:00: mouth [place] 20 mg 00 the Medical tablet morning. [facility] escitalopra 2022-0 Yes [id number] 20mg Take 1 [facility] oxalate 2-21 tablet by [facility] o f ([facility]) 00:00: mouth [place] 20 mg 00 the Medical tablet morning. [facility] escitalopra 2022-0 Yes [id number] 20mg Take 1 [facility] oxalate 2-21 tablet by [facility] o f ([facility]) 00:00: mouth [place] 20 mg 00 the Medical tablet morning. [facility] escitalopra 2022-0 Yes [id number] 20mg Take 1 [facility] oxalate 2-21 tablet by [facility] o f ([facility]) 00:00: mouth [place] 20 mg 00 the Medical tablet morning. Branch escitalopra 2022-0 Yes [id number] 20mg Take 1 [facility] oxalate 2-21 tablet by [facility] o f ([facility]) 00:00: mouth [place] 20 mg 00 the Medical tablet morning. [facility] escitalopra 2022-0 Yes [id number] 20mg Take 1 [facility] oxalate 2-21 tablet by [facility] o f ([facility]) 00:00: mouth [place] 20 mg 00 the Medical tablet morning. [facility] escitalopra 2022-0 Yes [id number] 20mg Take 1 [facility] oxalate 2-21 tablet by [facility] o f ([facility]) 00:00: mouth [place] 20 mg 00 the Medical tablet morning. [facility] escitalopra 2022-0 Yes [id number] 20mg Take 1 [facility] oxalate 2-21 tablet by [facility] o f ([facility]) 00:00: mouth [place] 20 mg 00 the Medical tablet morning. [facility] escitalopra 2022-0 Yes [id number] 20mg Take 1 [facility] oxalate 2-21 tablet by [facility] o f ([facility]) 00:00: mouth [place] 20 mg 00 the Medical tablet morning. [facility] escitalopra 2022-0 Yes [id number] 20mg Take 1 [facility] oxalate 2-21 tablet by [facility] o f ([facility]) 00:00: mouth [place] 20 mg 00 the Medical tablet morning. [facility] escitalopra 2022-0 Yes [id number] 20mg Take 1 [facility] oxalate 2-21 tablet by [facility] o f ([facility]) 00:00: mouth [place] 20 mg 00 the Medical tablet morning. [facility] escitalopra 2022-0 Yes [id number] 20mg Take 1 [facility] oxalate 2-21 tablet by [facility] o f ([facility]) 00:00: mouth [place] 20 mg 00 the Medical tablet morning. [facility] escitalopra 2022-0 Yes [id number] 20mg Take 1 [facility] oxalate 2-21 tablet by [facility] o f ([facility]) 00:00: mouth [place] 20 mg 00 the Medical tablet morning. [facility] escitalopra 2022-0 Yes [id number] 20mg Take 1 [facility] oxalate 2-21 tablet by [facility] o f ([facility]) 00:00: mouth [place] 20 mg 00 the Medical tablet morning. [facility] escitalopra 2022-0 Yes [id number] 20mg Take 1 [facility] oxalate 2-21 tablet by [facility] o f ([facility]) 00:00: mouth [place] 20 mg 00 the Medical tablet morning. [facility] escitalopra 2022-0 Yes [id number] 20mg Take 1 [facility] oxalate 2-21 tablet by [facility] o f ([facility]) 00:00: mouth [place] 20 mg 00 the Medical tablet morning. [facility] escitalopra 2022-0 Yes [id number] 20mg Take 1 [facility] oxalate 2-21 tablet by [facility] o f ([facility]) 00:00: mouth [place] 20 mg 00 the Medical tablet morning. [facility] escitalopra 2022-0 Yes [id number] 20mg Take 1 [facility] oxalate 2-21 tablet by [facility] o f ([facility]) 00:00: mouth [place] 20 mg 00 the Medical tablet morning. [facility] escitalopra 2022-0 Yes [id number] 20mg Take 1 [facility] oxalate 2-21 tablet by [facility] o f ([facility]) 00:00: mouth [place] 20 mg 00 the Medical tablet morning. [facility] escitalopra 2022-0 Yes [id number] 20mg Take 1 [facility] oxalate 2-21 tablet by [facility] o f ([facility]) 00:00: mouth [place] 20 mg 00 the Medical tablet morning. [facility] escitalopra 2022-0 Yes [id number] 20mg Take 1 [facility] oxalate 2-21 tablet by [facility] o f ([facility]) 00:00: mouth [place] 20 mg 00 the Medical tablet morning. [facility] escitalopra 2022-0 Yes [id number] 20mg Take 1 [facility] oxalate 2-21 tablet by [facility] o f ([facility]) 00:00: mouth [place] 20 mg 00 the Medical tablet morning. [facility] escitalopra 2022-0 Yes [id number] 20mg Take 1 [facility] oxalate 2-21 tablet by [facility] o f ([facility]) 00:00: mouth [place] 20 mg 00 the Medical tablet morning. [facility] escitalopra 2022-0 Yes [id number] 20mg Take 1 [facility] oxalate 2-21 tablet by [facility] o f ([facility]) 00:00: mouth [place] 20 mg 00 the Medical tablet morning. [facility] escitalopra 2022-0 Yes [id number] 20mg Take 1 [facility] oxalate 2-21 tablet by [facility] o f ([facility]) 00:00: mouth [place] 20 mg 00 the Medical tablet morning. [facility] escitalopra 2022-0 Yes [id number] 20mg Take 1 [facility] oxalate 2-21 tablet by [facility] o f ([facility]) 00:00: mouth [place] 20 mg 00 the Medical tablet morning. [facility] escitalopra 2022-0 Yes [id number] 20mg Take 1 [facility] oxalate 2-21 tablet by [facility] o f ([facility]) 00:00: mouth [place] 20 mg 00 the Medical tablet morning. [facility] escitalopra 2022-0 Yes [id number] 20mg Take 1 [facility] oxalate 2-21 tablet by [facility] o f ([facility]) 00:00: mouth [place] 20 mg 00 the Medical tablet morning. [facility] escitalopra 2022-0 Yes [id number] 20mg Take 1 [facility] oxalate 2-21 tablet by [facility] o f ([facility]) 00:00: mouth [place] 20 mg 00 the Medical tablet morning. [facility] escitalopra 2022-0 Yes [id number] 20mg Take 1 [facility] oxalate 2-21 tablet by [facility] o f ([facility]) 00:00: mouth [place] 20 mg 00 the Medical tablet morning. [facility] escitalopra 2022-0 Yes [id number] 20mg Take 1 [facility] oxalate 2-21 tablet by [facility] o f ([facility]) 00:00: mouth [place] 20 mg 00 the Medical tablet morning. [facility] escitalopra 2022-0 Yes [id number] 20mg Take 1 [facility] oxalate 2-21 tablet by [facility] o f ([facility]) 00:00: mouth [place] 20 mg 00 the Medical tablet morning. Branch escitalopra 2022-0 Yes [id number] 20mg Take 1 [facility] oxalate 2-21 tablet by [facility] o f ([facility]) 00:00: mouth [place] 20 mg 00 the Medical tablet morning. [facility] escitalopra 2022-0 Yes [id number] 20mg Take 1 [facility] oxalate 2-21 tablet by [facility] o f ([facility]) 00:00: mouth [place] 20 mg 00 the Medical tablet morning. [facility] escitalopra 2022-0 Yes [id number] 20mg Take 1 [facility] oxalate 2-21 tablet by [facility] o f ([facility]) 00:00: mouth [place] 20 mg 00 the Medical tablet morning. [facility] escitalopra 2022-0 Yes [id number] 20mg Take 1 [facility] oxalate 2-21 tablet by [facility] o f ([facility]) 00:00: mouth [place] 20 mg 00 the Medical tablet morning. [facility] escitalopra 2022-0 Yes [id number] 20mg Take 1 [facility] oxalate 2-21 tablet by [facility] o f ([facility]) 00:00: mouth [place] 20 mg 00 the Medical tablet morning. [facility] escitalopra 2022-0 Yes [id number] 20mg Take 1 [facility] oxalate 2-21 tablet by [facility] o f ([facility]) 00:00: mouth [place] 20 mg 00 the Medical tablet morning. Branch escitalopra 2022-0 Yes [id number] 20mg Take 1 [facility] oxalate 2-21 tablet by [facility] o f ([facility]) 00:00: mouth [place] 20 mg 00 the Medical tablet morning. Branch escitalopra 2022-0 Yes [id number] 20mg Take 1 [facility] oxalate 2-21 tablet by [facility] o f ([facility]) 00:00: mouth [place] 20 mg 00 the Medical tablet morning. [facility] escitalopra 2022-0 Yes [id number] 20mg Take 1 [facility] oxalate 2-21 tablet by [facility] o f ([facility]) 00:00: mouth [place] 20 mg 00 the Medical tablet morning. [facility] escitalopra 2022-0 Yes [id number] 20mg Take 1 [facility] oxalate 2-21 tablet by [facility] o f ([facility]) 00:00: [place] 20 mg 00 the Medical tablet morning. [facility] escitalopra 2022-0 Yes [id number] 20mg Take 1 [facility] oxalate 2-21 tablet by [facility] o f ([facility]) 00:00: [place] 20 mg 00 the Medical tablet morning. [facility] escitalopra 2022-0 Yes [id number] 20mg Take 1 [facility] oxalate 2-21 tablet by [facility] o f ([facility]) 00:00: [place] 20 mg 00 the [facility] tablet morning. [facility] escitalopra 2022-0 Yes [id number] 20mg Take 1 [facility] oxalate 2-21 tablet by [facility] o f ([facility]) 00:00: mouth [place] 20 mg 00 the Medical tablet morning. [facility] escitalopra 2022-0 Yes [id number] 20mg Take 1 [facility] oxalate 2-21 tablet by [facility] o f ([facility]) 00:00: mouth [place] 20 mg 00 the Medical tablet morning. [facility] escitalopra 2022-0 Yes [id number] 20mg Take 1 [facility] oxalate 2-21 tablet by [facility] o f ([facility]) 00:00: [place] 20 mg 00 the Medical tablet morning. [facility] escitalopra 2022-0 Yes [id number] 20mg Take 1 [facility] oxalate 2-21 tablet by [facility] o f ([facility]) 00:00: [place] 20 mg 00 the Medical tablet morning. Branch escitalopra 2022-0 Yes [id number] 20mg Take 1 [facility] oxalate 2-21 tablet by [facility] o f ([facility]) 00:00: [place] 20 mg 00 the [facility] tablet morning. [facility] escitalopra 2022-0 Yes [id number] 20mg Take 1 [facility] oxalate 2-21 tablet by [facility] o f ([facility]) 00:00: [place] 20 mg 00 the [facility] tablet morning. [facility] escitalopra 2022-0 Yes [id number] 20mg Take 1 [facility] oxalate 2-21 tablet by [facility] o f ([facility]) 00:00: [place] 20 mg 00 the [facility] tablet morning. [facility] escitalopra 2022-0 Yes [id number] 20mg Take 1 [facility] oxalate 2-21 tablet by [facility] o f ([facility]) 00:00: [place] 20 mg 00 the [facility] tablet morning. [facility] escitalopra 2022-0 Yes [id number] 20mg Take 1 [facility] oxalate 2-21 tablet by [facility] o f ([facility]) 00:00: [place] 20 mg 00 the Medical tablet morning. [facility] escitalopra 2022-0 Yes [id number] 20mg Take 1 [facility] oxalate 2-21 tablet by [facility] o f ([facility]) 00:00: [place] 20 mg 00 the [facility] tablet morning. [facility] escitalopra 2022-0 Yes [id number] 20mg Take 1 [facility] oxalate 2-21 tablet by [facility] o f ([facility]) 00:00: [place] 20 mg 00 the [facility] tablet morning. [facility] escitalopra 2022-0 Yes [id number] 20mg Take 1 [facility] oxalate 2-21 tablet by [facility] o f ([facility]) 00:00: [place] 20 mg 00 the [facility] tablet morning. [facility] escitalopra 2022-0 Yes [id number] 20mg Take 1 [facility] oxalate 2-21 tablet by [facility] o f ([facility]) 00:00: [place] 20 mg 00 the [facility] tablet morning. [facility] escitalopra 2022-0 Yes [id number] 20mg Take 1 [facility] oxalate 2-21 tablet by [facility] o f ([facility]) 00:00: [place] 20 mg 00 the [facility] tablet morning. [facility] escitalopra 2022-0 Yes [id number] 20mg Take 1 [facility] oxalate 2-21 tablet by [facility] o f ([facility]) 00:00: [place] 20 mg 00 the [facility] tablet morning. [facility] escitalopra 2022-0 Yes [id number] 20mg Take 1 [facility] oxalate 2-21 tablet by [facility] ([facility]) 00:[place]: [place] 20 mg 00 the Medical tablet morning. Branch escitalopra 3-0 Yes [id number] 20mg Take 1 [facility] oxalate 2-21 tablet by [facility] ([facility]) 00:[place] mouth [place] 20 mg 00 the Medical tablet morning. Branch escitalopra 2022-0 3- No [id number] 20mg Take 1 [facility] oxalate 2-21 07-25 tablet by [facility] of ([facility]APRO) 00:00: 00:00 mouth in [place] 20 mg 00 :00 the Medical tablet morning. Branch escitalopra 2022-0 2023- No [id number] 20mg Take 1 [facility] oxalate 2-21 07-25 tablet by [facility] of ([facility]APRO) 00:00: 00:00 mouth in [place] as 20 mg 00 :00 the Medical tablet morning. Branch escitalopra 2022-0 3- No [id number] 20mg Take 1 [facility] oxalate 2-21 07-25 tablet by [facility] of (LEXAPRO) 00:00: 00:00 mouth in [place] as 20 mg 00 :00 the Medical tablet morning. Branch escitalopra 2022-0 3- No [id number] 20mg Take 1 [facility] oxalate 2-21 07-25 tablet by [facility] of ([facility]APRO) 00:00: 00:00 mouth in [place] 20 mg 00 :00 the Medical tablet morning. Branch escitalopra 2022-0 3- No [id number] 20mg Take 1 [facility] oxalate 2-21 07-25 tablet by [facility] of (LEXAPRO) 00:00: 00:00 mouth in [place] 20 mg 00 :00 the Medical tablet morning. Branch escitalopra 3-0 3- No [id number] 20mg Take 1 [facility] oxalate 2-21 07-25 tablet by [facility] of ([facility]APRO) 00:00: 00:00 mouth in [place] 20 mg 00 :00 the Medical tablet morning. Branch escitalopra 2022-0 3- No [id number] 20mg Take 1 [facility] oxalate 2-21 07-25 tablet by [facility] of (LEXAPRO) 00:00: 00:00 mouth in [place] 20 mg 00 :00 the Medical tablet morning. Branch tiZANidine 2022-0 Yes [id number] 4mg Take 1 [facility] 4 mg tablet 2-20 9100 tablet by [facility] of 00:00: mouth (three) Medical times Branch daily as needed (muscle spasm). tiZANidine 2023-0 Yes [id number] 4mg Take 1 [facility] 4 mg tablet 2-20 9100 tablet by [facility] of 00:00: mouth 3 (three) Medical times Branch daily as needed (muscle spasm). tiZANidine 2023-0 Yes [id number] 4mg Take 1 [facility] 4 mg tablet 2-20 9100 tablet by [facility] of 00:00: mouth (three) Medical times Branch daily as needed (muscle spasm). tiZANidine 2023-0 Yes [id number] 4mg Take 1 [facility] 4 mg tablet 2-20 9100 tablet by [facility] of 00:00: mouth (three) Medical times Branch daily as needed (muscle spasm). tiZANidine 2023-0 Yes [id number] 4mg Take 1 [facility] 4 mg tablet 2-20 9100 tablet by [facility] of 00:00: mouth (three) Medical times Branch daily as needed (muscle spasm). tiZANidine 2023-0 Yes [id number] 4mg Take 1 [facility] 4 mg tablet 2-20 9100 tablet by [facility] of 00:00: mouth (three) Medical times Branch daily as needed (muscle spasm). tiZANidine 2023-0 Yes [id number] 4mg Take 1 [facility] 4 mg tablet 2-20 9100 tablet by [facility] of 00:00: mouth (three) Medical times Branch daily as needed (muscle spasm). tiZANidine 2023-0 Yes [id number] 4mg Take 1 [facility] 4 mg tablet 2-20 9100 tablet by [facility] of 00:00: mouth (three) Medical times Branch daily as needed (muscle spasm). tiZANidine 2023-0 Yes [id number] 4mg Take 1 [facility] 4 mg tablet 2-20 9100 tablet by [facility] of 00:00: mouth 3 (three) Medical times Branch daily as needed (muscle spasm). tiZANidine 2023-0 Yes [id number] 4mg Take 1 [facility] 4 mg tablet 2-20 9100 tablet by [facility] of 00:00: mouth (three) Medical times Branch daily as needed (muscle spasm). tiZANidine 2023-0 Yes [id number] 4mg Take 1 [facility] 4 mg tablet 2-20 9100 tablet by [facility] of 00:00: mouth 3 (three) Medical times Branch daily as needed (muscle spasm). tiZANidine 2023-0 Yes [id number] 4mg Take 1 [facility] 4 mg tablet 2-20 9100 tablet by [facility] of 00:00: mouth (three) Medical times Branch daily as needed (muscle spasm). tiZANidine 2023-0 Yes [id number] 4mg Take 1 [facility] 4 mg tablet 2-20 9100 tablet by [facility] of 00:00: mouth (three) Medical times Branch daily as needed (muscle spasm). tiZANidine 2023-0 Yes [id number] 4mg Take 1 [facility] 4 mg tablet 2-20 9100 tablet by [facility] of 00:00: mouth (three) Medical times Branch daily as needed (muscle spasm). tiZANidine 2023-0 Yes [id number] 4mg Take 1 [facility] 4 mg tablet 2-20 9100 tablet by [facility] of 00:00: mouth (three) Medical times Branch daily as needed (muscle spasm). tiZANidine 2023-0 Yes [id number] 4mg Take 1 [facility] 4 mg tablet 2-20 9100 tablet by [facility] of 00:00: mouth (three) Medical times Branch daily as needed (muscle spasm). tiZANidine 2023-0 Yes [id number] 4mg Take 1 [facility] 4 mg tablet 2-20 9100 tablet by [facility] of 00:00: mouth (three) Medical times Branch daily as needed (muscle spasm). tiZANidine 2023-0 Yes [id number] 4mg Take 1 [facility] 4 mg tablet 2-20 9100 tablet by [facility] of 00:00: mouth (three) Medical times Branch daily as needed (muscle spasm). tiZANidine 2023-0 Yes [id number] 4mg Take 1 [facility] 4 mg tablet 2-20 9100 tablet by [facility] of 00:00: mouth (three) Medical times Branch daily as needed (muscle spasm). tiZANidine 2023-0 Yes [id number] 4mg Take 1 [facility] 4 mg tablet 2-20 9100 tablet by [facility] of 00:00: mouth (three) Medical times Branch daily as needed (muscle spasm). tiZANidine 2023-0 Yes [id number] 4mg Take 1 [facility] 4 mg tablet 2-20 9100 tablet by [facility] of 00:00: mouth (three) Medical times Branch daily as needed (muscle spasm). tiZANidine 2023-0 Yes [id number] 4mg Take 1 [facility] 4 mg tablet 2-20 9100 tablet by [facility] of 00:00: mouth (three) Medical times Branch daily as needed (muscle spasm). tiZANidine 2023-0 Yes [id number] 4mg Take 1 [facility] 4 mg tablet 2-20 9100 tablet by [facility] of 00:00: mouth (three) Medical times Branch daily as needed (muscle spasm). tiZANidine 2023-0 Yes [id number] 4mg Take 1 [facility] 4 mg tablet 2-20 9100 tablet by [facility] of 00:00: mouth (three) Medical times Branch daily as needed (muscle spasm). tiZANidine 2023-0 Yes [id number] 4mg Take 1 [facility] 4 mg tablet 2-20 9100 tablet by [facility] of 00:00: mouth (three) Medical times Branch daily as needed (muscle spasm). tiZANidine 2023-0 Yes [id number] 4mg Take 1 [facility] 4 mg tablet 2-20 9100 tablet by [facility] of 00:00: mouth (three) Medical times Branch daily as needed (muscle spasm). tiZANidine 2023-0 Yes [id number] 4mg Take 1 [facility] 4 mg tablet 2-20 9100 tablet by [facility] of 00:00: mouth (three) Medical times Branch daily as needed (muscle spasm). tiZANidine 2023-0 Yes [id number] 4mg Take 1 [facility] 4 mg tablet 2-20 9100 tablet by [facility] of 00:00: mouth 3 (three) Medical times Branch daily as needed (muscle spasm). tiZANidine 2023-0 Yes [id number] 4mg Take 1 [facility] 4 mg tablet 2-20 9100 tablet by [facility] of 00:00: mouth (three) Medical times Branch daily as needed (muscle spasm). tiZANidine 2023-0 Yes [id number] 4mg Take 1 [facility] 4 mg tablet 2-20 9100 tablet by [facility] of 00:00: mouth 3 (three) Medical times Branch daily as needed (muscle spasm). tiZANidine 2023-0 Yes [id number] 4mg Take 1 [facility] 4 mg tablet 2-20 9100 tablet by [facility] of 00:00: mouth (three) Medical times Branch daily as needed (muscle spasm). tiZANidine 2023-0 Yes [id number] 4mg Take 1 [facility] 4 mg tablet 2-20 9100 tablet by [facility] of 00:00: mouth (three) Medical times Branch daily as needed (muscle spasm). tiZANidine 2023-0 Yes [id number] 4mg Take 1 [facility] 4 mg tablet 2-20 9100 tablet by [facility] of 00:00: mouth (three) Medical times Branch daily as needed (muscle spasm). tiZANidine 2023-0 Yes [id number] 4mg Take 1 [facility] 4 mg tablet 2-20 9100 tablet by [facility] of 00:00: mouth (three) Medical times Branch daily as needed (muscle spasm). tiZANidine 2023-0 Yes [id number] 4mg Take 1 [facility] 4 mg tablet 2-20 9100 tablet by [facility] of 00:00: mouth (three) Medical times Branch daily as needed (muscle spasm). tiZANidine 2023-0 Yes [id number] 4mg Take 1 [facility] 4 mg tablet 2-20 9100 tablet by [facility] of 00:00: mouth (three) Medical times Branch daily as needed (muscle spasm). tiZANidine 2023-0 Yes [id number] 4mg Take 1 [facility] 4 mg tablet 2-20 9100 tablet by [facility] of 00:00: mouth (three) Medical times Branch daily as needed (muscle spasm). tiZANidine 2023-0 Yes [id number] 4mg Take 1 [facility] 4 mg tablet 2-20 9100 tablet by [facility] of 00:00: mouth (three) Medical times Branch daily as needed (muscle spasm). tiZANidine 2023-0 Yes [id number] 4mg Take 1 [facility] 4 mg tablet 2-20 9100 tablet by [facility] of 00:00: mouth 3 (three) Medical times Branch daily as needed (muscle spasm). tiZANidine 2023-0 Yes [id number] 4mg Take 1 [facility] 4 mg tablet 2-20 9100 tablet by [facility] of 00:00: mouth 3 (three) Medical times Branch daily as needed (muscle spasm). tiZANidine 2023-0 Yes [id number] 4mg Take 1 [facility] 4 mg tablet 2-20 9100 tablet by [facility] of 00:00: mouth (three) Medical times Branch daily as needed (muscle spasm). tiZANidine 2023-0 Yes [id number] 4mg Take 1 [facility] 4 mg tablet 2-20 9100 tablet by [facility] of 00:00: mouth (three) Medical times Branch daily as needed (muscle spasm). tiZANidine 2023-0 Yes [id number] 4mg Take 1 [facility] 4 mg tablet 2-20 9100 tablet by [facility] of 00:00: mouth (three) Medical times Branch daily as needed (muscle spasm). tiZANidine 2023-0 Yes [id number] 4mg Take 1 [facility] 4 mg tablet 2-20 9100 tablet by [facility] of 00:00: mouth (three) Medical times Branch daily as needed (muscle spasm). tiZANidine 2023-0 Yes [id number] 4mg Take 1 [facility] 4 mg tablet 2-20 9100 tablet by [facility] of 00:00: mouth (three) Medical times Branch daily as needed (muscle spasm). tiZANidine 2023-0 Yes [id number] 4mg Take 1 [facility] 4 mg tablet 2-20 9100 tablet by [facility] of 00:00: mouth (three) Medical times Branch daily as needed (muscle spasm). tiZANidine 2023-0 Yes [id number] 4mg Take 1 [facility] 4 mg tablet 2-20 9100 tablet by [facility] of 00:00: mouth 3 (three) Medical times Branch daily as needed (muscle spasm). tiZANidine 2023-0 Yes [id number] 4mg Take 1 [facility] 4 mg tablet 2-20 9100 tablet by [facility] of 00:00: mouth (three) Medical times Branch daily as needed (muscle spasm). tiZANidine 2023-0 Yes [id number] 4mg Take 1 [facility] 4 mg tablet 2-20 9100 tablet by [facility] of 00:00: mouth 3 (three) Medical times Branch daily as needed (muscle spasm). tiZANidine 2023-0 Yes [id number] 4mg Take 1 [facility] 4 mg tablet 2-20 9100 tablet by [facility] of 00:00: mouth (three) Medical times Branch daily as needed (muscle spasm). tiZANidine 2023-0 Yes [id number] 4mg Take 1 [facility] 4 mg tablet 2-20 9100 tablet by [facility] of 00:00: mouth (three) Medical times Branch daily as needed (muscle spasm). tiZANidine 2023-0 Yes [id number] 4mg Take 1 [facility] 4 mg tablet 2-20 9100 tablet by [facility] of 00:00: mouth (three) Medical times Branch daily as needed (muscle spasm). tiZANidine 2023-0 Yes [id number] 4mg Take 1 [facility] 4 mg tablet 2-20 9100 tablet by [facility] of 00:00: mouth (three) Medical times Branch daily as needed (muscle spasm). tiZANidine 2023-0 Yes [id number] 4mg Take 1 [facility] 4 mg tablet 2-20 9100 tablet by [facility] of 00:00: mouth (three) Medical times Branch daily as needed (muscle spasm). tiZANidine 2023-0 Yes [id number] 4mg Take 1 [facility] 4 mg tablet 2-20 9100 tablet by [facility] of 00:00: mouth (three) Medical times Branch daily as needed (muscle spasm). tiZANidine 2023-0 Yes [id number] 4mg Take 1 [facility] 4 mg tablet 2-20 9100 tablet by [facility] of 00:00: mouth (three) Medical times Branch daily as needed (muscle spasm). tiZANidine 2023-0 Yes [id number] 4mg Take 1 [facility] 4 mg tablet 2-20 9100 tablet by [facility] of 00:00: mouth (three) Medical times Branch daily as needed (muscle spasm). tiZANidine 2023-0 Yes [id number] 4mg Take 1 [facility] 4 mg tablet 2-20 9100 tablet by [facility] of 00:00: mouth (three) Medical times Branch daily as needed (muscle spasm). tiZANidine 2023-0 Yes [id number] 4mg Take 1 [facility] 4 mg tablet 2-20 9100 tablet by [facility] of 00:00: mouth (three) Medical times Branch daily as needed (muscle spasm). tiZANidine 2023-0 Yes [id number] 4mg Take 1 [facility] 4 mg tablet 2-20 9100 tablet by [facility] of 00:00: mouth (three) Medical times Branch daily as needed (muscle spasm). tiZANidine 2023-0 Yes [id number] 4mg Take 1 [facility] 4 mg tablet 2-20 9100 tablet by [facility] of 00:00: mouth (three) Medical times Branch daily as needed (muscle spasm). tiZANidine 2023-0 Yes [id number] 4mg Take 1 [facility] 4 mg tablet 2-20 9100 tablet by [facility] of 00:00: mouth (three) Medical times Branch daily as needed (muscle spasm). tiZANidine 2023-0 Yes [id number] 4mg Take 1 [facility] 4 mg tablet 2-20 9100 tablet by [facility] of 00:00: mouth (three) Medical times Branch daily as needed (muscle spasm). tiZANidine 2023-0 Yes [id number] 4mg Take 1 [facility] 4 mg tablet 2-20 9100 tablet by [facility] of 00:00: mouth (three) Medical times Branch daily as needed (muscle spasm). tiZANidine 2023-0 Yes [id number] 4mg Take 1 [facility] 4 mg tablet 2-20 9100 tablet by [facility] of 00:00: mouth (three) Medical times Branch daily as needed (muscle spasm). tiZANidine 2023-0 Yes [id number] 4mg Take 1 [facility] 4 mg tablet 2-20 9100 tablet by [facility] of 00:00: mouth (three) Medical times Branch daily as needed (muscle spasm). tiZANidine 2023-0 Yes [id number] 4mg Take 1 [facility] 4 mg tablet 2-20 9100 tablet by [facility] of 00:00: mouth (three) Medical times Branch daily as needed (muscle spasm). tiZANidine 2023-0 Yes [id number] 4mg Take 1 [facility] 4 mg tablet 2-20 9100 tablet by [facility] of 00:00: mouth 3 (three) Medical times Branch daily as needed (muscle spasm). tiZANidine 2023-0 Yes [id number] 4mg Take 1 [facility] 4 mg tablet 2-20 9100 tablet by [facility] of 00:00: mouth (three) Medical times Branch daily as needed (muscle spasm). tiZANidine 2023-0 Yes [id number] 4mg Take 1 [facility] 4 mg tablet 2-20 9100 tablet by [facility] of 00:00: mouth (three) Medical times Branch daily as needed (muscle spasm). tiZANidine 2023-0 Yes [id number] 4mg Take 1 [facility] 4 mg tablet 2-20 9100 tablet by [facility] of 00:00: mouth (three) Medical times Branch daily as needed (muscle spasm). tiZANidine 2023-0 Yes [id number] 4mg Take 1 [facility] 4 mg tablet 2-20 9100 tablet by [facility] of 00:00: mouth (three) Medical times Branch daily as needed (muscle spasm). tiZANidine 2023-0 Yes [id number] 4mg Take 1 [facility] 4 mg tablet 2-20 9100 tablet by [facility] of 00:00: mouth (three) Medical times Branch daily as needed (muscle spasm). tiZANidine 2023-0 Yes [id number] 4mg Take 1 [facility] 4 mg tablet 2-20 9100 tablet by [facility] of 00:00: mouth (three) Medical times Branch daily as needed (muscle spasm). tiZANidine 2023-0 Yes [id number] 4mg Take 1 [facility] 4 mg tablet 2-20 9100 tablet by [facility] of 00:00: mouth 3 (three) Medical times Branch daily as needed (muscle spasm). tiZANidine 2023-0 Yes [id number] 4mg Take 1 [facility] 4 mg tablet 2-20 9100 tablet by [facility] of 00:00: mouth 3 (three) Medical times Branch daily as needed (muscle spasm). tiZANidine 2023-0 Yes [id number] 4mg Take 1 [facility] 4 mg tablet 2-20 9100 tablet by [facility] of 00:00: mouth 3 00 (three) Medical times Branch daily as needed (muscle spasm). tiZANidine 2023-0 Yes [id number] 4mg Take 1 [facility] 4 mg tablet 2- 9100 tablet by [facility] of 00:00: mouth 3 (three) Medical times Branch daily as needed (muscle spasm). tiZANidine 2023-0 Yes [id number] 4mg Take 1 [facility] 4 mg tablet 2- 9100 tablet by [facility] of 00:00: mouth 3 (three) Medical times Branch daily as needed (muscle spasm). tiZANidine 2023-0 2023- No [id number] 4mg Take 1 [facility] 4 mg tablet 2- 9100 tablet by it y of 00:00: 00:00 mouth 3 00 :00 (three) Medical times Branch daily as needed (muscle spasm). tiZANidine 2023-0 2023- No [id number] 4mg Take 1 [facility] 4 mg tablet 2-30 01- 9100 tablet by it y of 00:00: 00:00 mouth 3 00 :00 (three) Medical times Branch daily as needed (muscle spasm). tiZANidine 2023-0 2023- No [id number] 4mg Take 1 [facility] 4 mg tablet 2-30 01- 9100 tablet by it y of 00:00: 00:00 mouth 3 00 :00 (three) Medical times Branch daily as needed (muscle spasm). tiZANidine 2023-0 2023- No [id number] 4mg Take 1 [facility] 4 mg tablet 2-30 01- 9100 tablet by it y of 00:00: 00:00 mouth 3 00 :00 (three) Medical times Branch daily as needed (muscle spasm). tiZANidine 2023-0 2023- No [id number] 4mg Take 1 [facility] 4 mg tablet 2-30 01- 9100 tablet by it y of 00:00: 00:00 mouth 3 00 :00 (three) Medical times Branch daily as needed (muscle spasm). tiZANidine 2022-0 2022- No [id number] 4mg Take 1 [facility] 4 mg tablet 10-02 9100 tablet by it y of 00:00: 00:00 mouth 3 [place] 00 :00 (three) Medical times Branch daily as needed (muscle spasm). tiZANidine 2022-0 2022- No [id number] 4mg Take 1 [facility] 4 mg tablet 10-02 9100 tablet by it y of 00:00: 00:00 mouth 3 [place] 00 :00 (three) Medical times Branch daily as needed (muscle spasm). tiZANidine 2022-0 2022- No [id number] 4mg Take 1 [facility] 4 mg tablet 10-02 9100 tablet by it y of 00:00: 00:00 mouth 3 [place] 00 :00 (three) Medical times Branch daily as needed (muscle spasm). busPIRone 5 0 Yes [id number] 5mg Take 1 [facility] mg tablet 2-09 tablet by [facility] o f 00:00: mouth 2 [place] 00 (two) Medical times Branch daily as needed (anxiety). atorvastati 0 Yes [id number] 20mg Take 1 [facility] n 20 mg 2-09 tablet by [facility] of tablet 00:00: mouth at [place] 00 bedtime. Medical Branch busPIRone 5 0 Yes [id number] 5mg Take 1 [facility] mg tablet 2-09 tablet by [facility] o f 00:00: mouth 2 [place] 00 (two) Medical times Branch daily as needed (anxiety). atorvastati 2022-0 Yes [id number] 20mg Take 1 [facility] n 20 mg 2-09 tablet by [facility] of tablet 00:00: mouth at [place] 00 bedtime. Medical Branch busPIRone 5 2022-0 Yes [id number] 5mg Take 1 [facility] mg tablet 2-09 tablet by [facility] o f 00:00: mouth 2 [place] 00 (two) Medical times Branch daily as needed (anxiety). atorvastati 2022-0 Yes [id number] 20mg Take 1 [facility] n 20 mg 2-09 tablet by [facility] of tablet 00:00: mouth at [place] 00 bedtime. Medical Branch busPIRone 5 2022-0 Yes [id number] 5mg Take 1 [facility] mg tablet 2-09 tablet by [facility] o f 00:00: mouth 2 00 (two) Medical times Branch daily as needed (anxiety). atorvastati 2022-0 Yes [id number] 20mg Take 1 [facility] n 20 mg 2-09 tablet by [facility] of tablet 00:00: mouth at [place] 00 bedtime. Medical Branch busPIRone 5 2022-0 Yes [id number] 5mg Take 1 [facility] mg tablet 2-09 tablet by [facility] o f 00:00: mouth 2 00 (two) Medical times Branch daily as needed (anxiety). atorvastati 0 Yes [id number] 20mg Take 1 [facility] n 20 mg 2-09 tablet by [facility] of tablet 00:00: mouth at 00 bedtime. Medical Branch busPIRone 5 0 Yes [id number] 5mg Take 1 [facility] mg tablet 2-09 tablet by [facility] o f 00:00: mouth 2 (two) Medical times Branch daily as needed (anxiety). atorvastati 2022-0 Yes [id number] 20mg Take 1 [facility] n 20 mg 2-09 tablet by [facility] of tablet 00:00: mouth at 00 bedtime. Medical Branch busPIRone 5 0 Yes [id number] 5mg Take 1 [facility] mg tablet 2-09 tablet by [facility] o f 00:00: mouth 2 (two) Medical times Branch daily as needed (anxiety). atorvastati 0 Yes [id number] 20mg Take 1 [facility] n 20 mg 2-09 tablet by [facility] of tablet 00:00: mouth at 00 bedtime. Medical Branch busPIRone 5 0 Yes [id number] 5mg Take 1 [facility] mg tablet 2-09 tablet by [facility] o f 00:00: mouth 2 00 (two) Medical times Branch daily as needed (anxiety). atorvastati 2022-0 Yes [id number] 20mg Take 1 [facility] n 20 mg 2-09 tablet by [facility] of tablet 00:00: mouth at 00 bedtime. Medical Branch busPIRone 5 2022-0 Yes [id number] 5mg Take 1 [facility] mg tablet 2-09 tablet by [facility] o f 00:00: mouth 2 00 (two) Medical times Branch daily as needed (anxiety). atorvastati 2023-0 Yes [id number] 20mg Take 1 [facility] n 20 mg 2-09 tablet by [facility] of tablet 00:00: mouth at [place] 00 bedtime. Medical [facility] busPIRone 5 0 Yes [id number] 5mg Take 1 [facility] mg tablet 2-09 tablet by [facility] o f 00:00: mouth 2 00 (two) Medical times Branch daily as needed (anxiety). atorvastati 0 Yes [id number] 20mg Take 1 [facility] n 20 mg 2-09 tablet by [facility] of tablet 00:00: mouth at [place] 00 bedtime. Medical [facility] busPIRone 5 0 Yes [id number] 5mg Take 1 [facility] mg tablet 2-09 tablet by [facility] o f 00:00: mouth 2 00 (two) Medical times Branch daily as needed (anxiety). atorvastati Yes [id number] 20mg Take 1 [facility] n 20 mg 2-09 tablet by [facility] of tablet 00:00: mouth at [place] 00 bedtime. Medical [facility] busPIRone 5 Yes [id number] 5mg Take 1 [facility] mg tablet 2-09 tablet by [facility] o f 00:00: mouth 2 (two) Medical times Branch daily as needed (anxiety). atorvastati Yes [id number] 20mg Take 1 [facility] n 20 mg 2-09 tablet by [facility] of tablet 00:00: mouth at 00 bedtime. Medical [facility] busPIRone 5 0 Yes [id number] 5mg Take 1 [facility] mg tablet 2-09 tablet by [facility] o f 00:00: mouth 2 00 (two) Medical times Branch daily as needed (anxiety). atorvastati Yes [id number] 20mg Take 1 [facility] n 20 mg 2-09 tablet by [facility] of tablet 00:00: mouth at [place] 00 bedtime. Medical [facility] busPIRone 5 0 Yes [id number] 5mg Take 1 [facility] mg tablet 2-09 tablet by [facility] o f 00:00: mouth 2 00 (two) Medical times Branch daily as needed (anxiety). atorvastati Yes [id number] 20mg Take 1 [facility] n 20 mg 2-09 tablet by [facility] of tablet 00:00: mouth at [place] 00 bedtime. Medical [facility] busPIRone 5 0 Yes [id number] 5mg Take 1 [facility] mg tablet 2-09 tablet by [facility] o f 00:00: mouth 2 00 (two) Medical times Branch daily as needed (anxiety). atorvastati 0 Yes [id number] 20mg Take 1 [facility] n 20 mg 2-09 tablet by [facility] of tablet 00:00: mouth at [place] 00 bedtime. Medical [facility] busPIRone 5 0 Yes [id number] 5mg Take 1 [facility] mg tablet 2-09 tablet by [facility] o f 00:00: mouth 2 00 (two) Medical times Branch daily as needed (anxiety). atorvastati Yes [id number] 20mg Take 1 [facility] n 20 mg 2-09 tablet by [facility] of tablet 00:00: mouth at [place] 00 bedtime. Medical [facility] busPIRone 5 0 Yes [id number] 5mg Take 1 [facility] mg tablet 2-09 tablet by [facility] o f 00:00: mouth 2 00 (two) Medical times Branch daily as needed (anxiety). atorvastati Yes [id number] 20mg Take 1 [facility] n 20 mg 2-09 tablet by [facility] of tablet 00:00: mouth at 00 bedtime. Medical [facility] busPIRone 5 0 Yes [id number] 5mg Take 1 [facility] mg tablet 2-09 tablet by [facility] o f 00:00: mouth 2 00 (two) Medical times Branch daily as needed (anxiety). atorvastati Yes [id number] 20mg Take 1 [facility] n 20 mg 2-09 tablet by [facility] of tablet 00:00: mouth at [place] 00 bedtime. Medical [facility] busPIRone 5 0 Yes [id number] 5mg Take 1 [facility] mg tablet 2-09 tablet by [facility] o f 00:00: mouth 2 00 (two) Medical times Branch daily as needed (anxiety). atorvastati 0 Yes [id number] 20mg Take 1 [facility] n 20 mg 2-09 tablet by [facility] of tablet 00:00: mouth at [place] 00 bedtime. Medical [facility] busPIRone 5 Yes [id number] 5mg Take 1 [facility] mg tablet 2-09 tablet by [facility] o f 00:00: mouth 2 00 (two) Medical times Branch daily as needed (anxiety). atorvastati 2022-0 Yes [id number] 20mg Take 1 [facility] n 20 mg 2-09 tablet by [facility] of tablet 00:00: mouth at [place] 00 bedtime. Medical [facility] busPIRone 5 0 Yes [id number] 5mg Take 1 [facility] mg tablet 2-09 tablet by [facility] o f 00:00: mouth 2 00 (two) Medical times Branch daily as needed (anxiety). atorvastati 2022-0 Yes [id number] 20mg Take 1 [facility] n 20 mg 2-09 tablet by [facility] of tablet 00:00: mouth at [place] 00 bedtime. Medical [facility] busPIRone 5 0 Yes [id number] 5mg Take 1 [facility] mg tablet 2-09 tablet by [facility] o f 00:00: mouth 2 00 (two) Medical times Branch daily as needed (anxiety). atorvastati 0 Yes [id number] 20mg Take 1 [facility] n 20 mg 2-09 tablet by [facility] of tablet 00:00: mouth at 00 bedtime. Medical [facility] busPIRone 5 0 Yes [id number] 5mg Take 1 [facility] mg tablet 2-09 tablet by [facility] o f 00:00: mouth 2 (two) Medical times Branch daily as needed (anxiety). atorvastati 2022-0 Yes [id number] 20mg Take 1 [facility] n 20 mg 2-09 tablet by [facility] of tablet 00:00: mouth at 00 bedtime. Medical [facility] busPIRone 5 0 Yes [id number] 5mg Take 1 [facility] mg tablet 2-09 tablet by [facility] o f 00:00: mouth 2 00 (two) Medical times Branch daily as needed (anxiety). atorvastati 2022-0 Yes [id number] 20mg Take 1 [facility] n 20 mg 2-09 tablet by [facility] of tablet 00:00: mouth at [place] 00 bedtime. Medical [facility] busPIRone 5 2022-0 Yes [id number] 5mg Take 1 [facility] mg tablet 2-09 tablet by [facility] o f 00:00: mouth 2 00 (two) Medical times Branch daily as needed (anxiety). atorvastati 2022-0 Yes [id number] 20mg Take 1 [facility] n 20 mg 2-09 tablet by [facility] of tablet 00:00: mouth at [place] 00 bedtime. Medical [facility] busPIRone 5 0 Yes [id number] 5mg Take 1 [facility] mg tablet 2-09 tablet by [facility] o f 00:00: mouth 2 00 (two) Medical times Branch daily as needed (anxiety). atorvastati 0 Yes [id number] 20mg Take 1 [facility] n 20 mg 2-09 tablet by [facility] of tablet 00:00: mouth at [place] 00 bedtime. Medical [facility] busPIRone 5 0 Yes [id number] 5mg Take 1 [facility] mg tablet 2-09 tablet by [facility] o f 00:00: mouth 2 00 (two) Medical times Branch daily as needed (anxiety). atorvastati Yes [id number] 20mg Take 1 [facility] n 20 mg 2-09 tablet by [facility] of tablet 00:00: mouth at [place] 00 bedtime. [facility] busPIRone 5 Yes [id number] 5mg Take 1 [facility] mg tablet 2-09 tablet by ity o f 00:00: mouth 2 00 (two) Medical times Branch daily as needed (anxiety). atorvastati Yes [id number] 20mg Take 1 [facility] n 20 mg 2-09 tablet by ity of tablet 00:00: mouth at [place] 00 bedtime. [facility] busPIRone 5 0 Yes [id number] 5mg Take 1 [facility] mg tablet 2-09 tablet by ity o f 00:00: mouth 2 00 (two) Medical times Branch daily as needed (anxiety). atorvastati Yes [id number] 20mg Take 1 [facility] n 20 mg 2-09 tablet by ity of tablet 00:00: mouth at [place] 00 bedtime. [facility] busPIRone 5 0 Yes [id number] 5mg Take 1 [facility] mg tablet 2-09 tablet by ity o f 00:00: mouth 2 00 (two) Medical times Branch daily as needed (anxiety). atorvastati 0 Yes [id number] 20mg Take 1 [facility] n 20 mg 2-09 tablet by ity of tablet 00:00: mouth at [place] 00 bedtime. [facility] busPIRone 5 Yes [id number] 5mg Take 1 [facility] mg tablet 2-09 tablet by ity o f 00:00: mouth 2 (two) Medical times Branch daily as needed (anxiety). atorvastati 0 Yes [id number] 20mg Take 1 [facility] n 20 mg 2-09 tablet by ity of tablet 00:00: mouth at [place] 00 bedtime. [facility] Branch atorvastati 2022-0 Yes [id number] 20mg Take 1 [facility] n 20 mg 2-09 tablet by ity of tablet 00:00: mouth at [place] 00 bedtime. [facility] atorvastati 0 Yes [id number] 20mg Take 1 [facility] n 20 mg 2-09 tablet by ity of tablet 00:00: mouth at [place] bedtime. [facility] atorvastati 0 Yes [id number] 20mg Take 1 [facility] n 20 mg 2-09 tablet by ity of tablet 00:00: mouth at [place] bedtime. [facility] atorvastati 0 Yes [id number] 20mg Take 1 [facility] n 20 mg 2-09 tablet by ity of tablet 00:00: mouth at [place] bedtime. [facility] atorvastati 0 Yes [id number] 20mg Take 1 [facility] n 20 mg 2-09 tablet by ity of tablet 00:00: mouth at [place] bedtime. [facility] atorvastati 0 Yes [id number] 20mg Take 1 [facility] n 20 mg 2-09 tablet by ity of tablet 00:00: mouth at [place] bedtime. [facility] atorvastati 2022-0 Yes [id number] 20mg Take 1 [facility] n 20 mg 2-09 tablet by ity of tablet 00:00: mouth at [place] [address] bedtime. [facility] Branch atorvastati 2022-0 Yes [id number] 20mg Take 1 [facility] n 20 mg 2-09 tablet by ity of tablet 00:00: mouth at [place] [address] bedtime. [facility] Branch atorvastati 2022-0 Yes [id number] 20mg Take 1 [facility] n 20 mg 2-09 tablet by ity of tablet 00:00: mouth at [place] [address] bedtime. [facility] Branch atorvastati 2022-0 Yes [id number] 20mg Take 1 [facility] n 20 mg 2-09 tablet by ity of tablet 00:00: mouth at [place] [address] bedtime. [facility] Branch atorvastati 2022-0 Yes [id number] 20mg Take 1 [facility] n 20 mg 2-09 tablet by ity of tablet 00:00: mouth at [place] 00 bedtime. [facility] atorvastati 2022-0 Yes [id number] 20mg Take 1 [facility] n 20 mg 2-09 tablet by ity of tablet 00:00: mouth at [place] 00 bedtime. [facility] atorvastati 2022-0 Yes [id number] 20mg Take 1 [facility] n 20 mg 2-09 tablet by ity of tablet 00:00: mouth at [place] 00 bedtime. [facility] Branch atorvasta 2022-0 Yes [id number] 20mg Take 1 [facility] n 20 mg 2-09 tablet by ity of tablet 00:00: mouth at [place] [address] bedtime. [facility] Branch atorvasta 0 Yes [id number] 20mg Take 1 [facility] n 20 mg 2-09 tablet by ity of tablet 00:00: mouth at [place] [address] bedtime. [facility] Branch atorvasta 0 Yes [id number] 20mg Take 1 [facility] n 20 mg 2-09 tablet by ity of tablet 00:00: mouth at [place] [address] bedtime. [facility] Branch atorvasta 0 Yes [id number] 20mg Take 1 [facility] n 20 mg 2-09 tablet by ity of tablet 00:00: mouth at [place] [address] bedtime. [facility] Branch atorvastati 0 Yes [id number] 20mg Take 1 [facility] n 20 mg 2-09 tablet by ity of tablet 00:00: mouth at [place] [address] bedtime. [facility] Branch atorvastati 2022-0 Yes [id number] 20mg Take 1 [facility] n 20 mg 2-09 tablet by ity of tablet 00:00: mouth at [place] [address] bedtime. [facility] Branch atorvastati 2022-0 Yes [id number] 20mg Take 1 [facility] n 20 mg 2-09 tablet by ity of tablet 00:00: mouth at [place] 00 bedtime. [facility] Branch atorvastati 0 Yes [id number] 20mg Take 1 [facility] n 20 mg 2-09 tablet by ity of tablet 00:00: mouth at [place] [address] bedtime. [facility] Branch atorvastati 2022-0 Yes [id number] 20mg Take 1 [facility] n 20 mg 2-09 tablet by ity of tablet 00:00: mouth at [place] 00 bedtime. [facility] Branch atorvasta 2022-0 Yes [id number] 20mg Take 1 [facility] n 20 mg 2-09 tablet by ity of tablet 00:00: mouth at [place] 00 bedtime. [facility] Branch atorvasta 2022-0 Yes [id number] 20mg Take 1 [facility] n 20 mg 2-09 tablet by ity of tablet 00:00: mouth at [place] 00 bedtime. [facility] Branch atorvasta 2022-0 Yes [id number] 20mg Take 1 [facility] n 20 mg 2-09 tablet by ity of tablet 00:00: mouth at [place] 00 bedtime. [facility] Branch atorvasta 0 Yes [id number] 20mg Take 1 [facility] n 20 mg 2-09 tablet by ity of tablet 00:00: mouth at [place] 00 bedtime. [facility] Branch atorvasta 0 Yes [id number] 20mg Take 1 [facility] n 20 mg 2-09 tablet by ity of tablet 00:00: mouth at [place] 00 bedtime. [facility] atorvasta 0 Yes [id number] 20mg Take 1 [facility] n 20 mg 2-09 tablet by ity of tablet 00:00: mouth at [place] 00 bedtime. [facility] atorvasta 0 Yes [id number] 20mg Take 1 [facility] n 20 mg 2-09 tablet by ity of tablet 00:00: mouth at [place] 00 bedtime. [facility] atorvasta 0 Yes [id number] 20mg Take 1 [facility] n 20 mg 2-09 tablet by ity of tablet 00:00: mouth at [place] 00 bedtime. [facility] Branch atorvasta 0 Yes [id number] 20mg Take 1 [facility] n 20 mg 2-09 tablet by ity of tablet 00:00: mouth at [place] 00 bedtime. [facility] atorvasta 0 Yes [id number] 20mg Take 1 [facility] n 20 mg 2-09 tablet by ity of tablet 00:00: mouth at [place] 00 bedtime. [facility] Branch atorvasta 2022-0 Yes [id number] 20mg Take 1 [facility] n 20 mg 2-09 tablet by ity of tablet 00:00: mouth at [place] 00 bedtime. [facility] Branch atorvasta 2022-0 Yes [id number] 20mg Take 1 [facility] n 20 mg 2-09 tablet by ity of tablet 00:00: mouth at [place] 00 bedtime. [facility] Branch atorvastati 2022-0 Yes [id number] 20mg Take 1 [facility] n 20 mg 2-09 tablet by ity of tablet 00:00: mouth at [place] 00 bedtime. [facility] Branch atorvastati 2022-0 Yes [id number] 20mg Take 1 [facility] n 20 mg 2-09 tablet by ity of tablet 00:00: mouth at [place] 00 bedtime. [facility] atorvastati 2022-0 Yes [id number] 20mg Take 1 [facility] n 20 mg 2-09 tablet by ity of tablet 00:00: mouth at [place] 00 bedtime. [facility] atorvastati 0 Yes [id number] 20mg Take 1 [facility] n 20 mg 2-09 tablet by ity of tablet 00:00: mouth at [place] 00 bedtime. [facility] Branch atorvastati 2022-0 Yes [id number] 20mg Take 1 [facility] n 20 mg 2-09 tablet by ity of tablet 00:00: mouth at [place] 00 bedtime. [facility] Branch atorvasta 0 Yes [id number] 20mg Take 1 [facility] n 20 mg 2-09 tablet by ity of tablet 00:00: mouth at [place] 00 bedtime. [facility] Branch atorvastati 2022-0 Yes [id number] 20mg Take 1 [facility] n 20 mg 2-09 tablet by ity of tablet 00:00: mouth at [place] [address] bedtime. Medical Branch atorvastati 2022-0 Yes [id number] 20mg Take 1 [facility] n 20 mg 2-09 tablet by ity of tablet 00:00: mouth at [place] [address] bedtime. [facility] Branch atorvastati 2022-0 Yes [id number] 20mg Take 1 [facility] n 20 mg 2-09 tablet by ity of tablet 00:00: mouth at [place] 00 bedtime. [facility] Branch atorvastati 2022-0 Yes [id number] 20mg Take 1 [facility] n 20 mg 2-09 tablet by ity of tablet 00:00: mouth at [place] 00 bedtime. [facility] Branch atorvastati 2022-0 Yes [id number] 20mg Take 1 [facility] n 20 mg 2-09 tablet by ity of tablet 00:00: mouth at [place] 00 bedtime. [facility] Branch atorvastati 2022-0 Yes [id number] 20mg Take 1 [facility] n 20 mg 2-09 tablet by ity of tablet 00:00: mouth at [place] 00 bedtime. [facility] Branch atorvastati 2022-0 Yes [id number] 20mg Take 1 [facility] n 20 mg 2-09 tablet by ity of tablet 00:00: mouth at [place] 00 bedtime. [facility] Branch atorvastati 2022-0 Yes [id number] 20mg Take 1 [facility] n 20 mg 2-09 tablet by ity of tablet 00:00: mouth at [place] 00 bedtime. [facility] Branch atorvastati 2022-0 Yes [id number] 20mg Take 1 [facility] n 20 mg 2-09 tablet by ity of tablet 00:00: mouth at [place] [address] bedtime. Medical Branch atorvastati 2022-0 Yes [id number] 20mg Take 1 [facility] n 20 mg 2-09 tablet by ity of tablet 00:00: mouth at [place] [address] bedtime. Medical Branch atorvastati 0 Yes [id number] 20mg Take 1 [facility] n 20 mg 2-09 tablet by ity of tablet 00:00: mouth at [place] [address] bedtime. Medical Branch atorvastati 0 Yes [id number] 20mg Take 1 [facility] n 20 mg 2-09 tablet by ity of tablet 00:00: mouth at [place] [address] bedtime. Medical Branch atorvastati 2022-0 Yes [id number] 20mg Take 1 [facility] n 20 mg 2-09 tablet by ity of tablet 00:00: mouth at [place] [address] bedtime. Medical Branch atorvastati 2022-0 Yes [id number] 20mg Take 1 [facility] n 20 mg 2-09 tablet by ity of tablet 00:00: mouth at [place] [address] bedtime. Medical Branch atorvastati 2022-0 Yes [id number] 20mg Take 1 [facility] n 20 mg 2-09 tablet by ity of tablet 00:00: mouth at [place] [address] bedtime. Medical Branch atorvastati 2022-0 Yes [id number] 20mg Take 1 [facility] n 20 mg 2-09 tablet by ity of tablet 00:00: mouth at [place] [address] bedtime. Medical Branch atorvastati 2022-0 Yes [id number] 20mg Take 1 [facility] n 20 mg 2-09 tablet by ity of tablet 00:00: mouth at [place] 00 bedtime. [facility] Yes [id number] 20mg Take 1 [facility] n 20 mg 2-09 tablet by ity of tablet 00:00: mouth at [place] 00 bedtime. [facility] 0 Yes [id number] 20mg Take 1 [facility] n 20 mg 2-09 tablet by ity of tablet 00:00: mouth at [place] 00 bedtime. [facility] Yes [id number] 20mg Take 1 [facility] n 20 mg 2-09 tablet by ity of tablet 00:00: mouth at [place] 00 bedtime. [facility] Yes [id number] 20mg Take 1 [facility] n 20 mg 2-09 tablet by ity of tablet 00:00: mouth at [place] 00 bedtime. [facility] Yes [id number] 20mg Take 1 [facility] n 20 mg 2-09 tablet by ity of tablet 00:00: mouth at [place] 00 bedtime. [facility] 2022- No [id number] 20mg Take 1 [facility] n 20 mg 2- tablet by ity of tablet 00:00: 00:00 mouth at [place] 00 :00 bedtime. [facility] 2022- No [id number] 20mg Take 1 [facility] n 20 mg 09-21- tablet by ity of tablet 00:00: 00:00 mouth at [place] 00 :00 bedtime. [facility] 2022- No [id number] 20mg Take 1 [facility] n 20 mg 2-04 19- tablet by ity of tablet 00:00: 00:00 mouth at [place] 00 :00 bedtime. [facility] 2022- No [id number] 20mg Take 1 [facility] n 20 mg 2-04 19- tablet by ity of tablet 00:00: 00:00 mouth at [place] 00 :00 bedtime. [facility] 2022- No [id number] 20mg Take 1 [facility] n 20 mg 2-04 19- tablet by ity of tablet 00:00: 00:00 mouth at [place] 00 :00 bedtime. Medical Branch atorvastati 2022- No [id number] 20mg Take 1 [facility] n 20 mg 09-21 tablet by ity of tablet 00:00: 00:00 mouth at [place] 00 :00 bedtime. Medical Branch atorvastati 2022- No [id number] 20mg Take 1 [facility] n 20 mg 09-21 tablet by ity of tablet 00:00: 00:00 mouth at [place] 00 :00 bedtime. Medical Branch busPIRone 5 No [id number] 5mg Take 1 [facility] mg tablet 09-21 tablet by ity of 00:00: 00:00 mouth 2 [place] 00 :00 (two) Medical times [place] daily as needed (anxiety). busPIRone 5 No [id number] 5mg Take 1 [facility] mg tablet 09-21 tablet by ity of 00:00: 00:00 mouth 2 [place] 00 :00 (two) Medical times [place] daily as needed (anxiety). busPIRone 5 2022- No [id number] 5mg Take 1 [facility] mg tablet 09-21 tablet by ity of 00:00: 00:00 mouth 2 [place] 00 :00 (two) Medical times [place] daily as needed (anxiety). bupivacaine No [id number] 4mL Univers (preserv 09-15 ity of free) 17:15: 17:19 [place] (SENSORCAIN 00 :00 Medical E MPF) 0.25 Branch % (2.5 mg/mL) injection 4 mL lidocaine No [id number] 14mL Un joby 1% (PF) 09-15 ity of (XYLOCAINE) 17:15: 17:06 [place] injection 00 :00 Medical 14 mL Branch triamcinolo 2022- No [id number] 80mg Univers ne 09-15 ity of acetonide 17:15: 17:12 [place] (KENALOG) 00 :00 Medical injection Branch 80 mg triamcinolo 2022- No [id number] 80mg 80 mg, Univers ne 09-15 Infiltrati ity of acetonide 17:15: 17:12 on[place]CE, [place] (KENALOG[place] 00 :00 1 dose, On Medi nirmal injection 09/15/22 Bran ch 80 mg at 1115, Routine lidocaine 2022-0 2022- No [id number] 14mL 14 mL, Univers 1% (PF) 09-15 Infiltrati ity o f (XYLOCAINE) 17:15: 17:06 on, ONCE, [place] injection 00 :00 1 dose, On Medi nirmal 14 mL 09/15/22 Branch at 1115, Routine bupivacaine 2022-0 2022- No [id number] 4mL 4 mL, Univers (preserv 09-15 Infiltrati ity of free) 17:15: 17:19 on, ONCE, [place] (SENSORCAIN 00 :00 1 dose, On Me dical E MPF) 0.25 09/15/22 Br anch % (2.5 at 1115, mg/mL) Routine injection 4 mL bupivacaine 2022- No [id number] 4mL Univers (preserv 09-15 ity of free) 17:15: 17:19 [place] (SENSORCAIN 00 :00 Medical E MPF) 0.25 Branch % (2.5 mg/mL) injection 4 mL lidocaine 2022- No [id number] 14mL Un joby 1% (PF) 09-15 ity of (XYLOCAINE) 17:15: 17:06 [place] injection 00 :00 Medical 14 mL Branch triamcinolo 0 2022- No [id number] 80mg Univers ne 09-15 ity of acetonide 17:15: 17:12 [place] (KENALOG) 00 :00 Medical injection Branch 80 mg triamcinolo 0 2022- No [id number] 80mg 80 mg, Univers ne 09-15 Infiltrati ity of acetonide 17:15: 17:12 on, [place]CE, [place] (KENALOG[place] 00 :00 1 dose, On Medi nirmal injection 09/15/22 Bran ch 80 mg at 1115, Routine lidocaine 2022-0 2022- No [id number] 14mL 14 mL, Univers 1% (PF) 09-15 Infiltrati ity o f (XYLOCAINE) 17:15: 17:06 on, ONCE, [place] injection 00 :00 1 dose, On Medi nirmal 14 mL Sun09/15/22 Branch at 1115, Routine bupivacaine 2022-2022- No [id number] 4mL 4 mL, Univers (preserv 09-15 Infiltrati ity of free) 17:15: 17:19 on, ONCE, [place] (SENSORCAIN 00 :00 1 dose, On Me dical E MPF) 0.25 Sun09/15/22 Br anch % (2.5 at 1115, mg/mL) Routine injection 4 mL lactated 2022-0 2022- No [id number] 500mL Un joby ringers IV 09-15 0203 ity of infusion 16:45: 17:06 [place] 500 mL 00 :00 Medical Branch lactated 2022-0 2022- No [id number] 500mL at 20 U nivers ringers IV 09-15 02-03 mL/hr, 500 it y of infusion 16:45: 17:06 mL, IV [place] 500 mL 00 :00 Infusion, Medical ONCE, 1 Branch dose, On Sun09/15/22 at 1045, Routine lactated 2022-0 2022- No [id number] 500mL Un joby ringers IV 09-1503 ity of infusion 16:45: 17:06 [place] 500 mL 00 :00 Medical Branch lactated 2022-0 2022- No [id number] 500mL at 20 U nivers ringers IV 09-15 02-03 mL/hr, 500 it y of infusion 16:45: 17:06 mL, IV [place] 500 mL 00 :00 Infusion, Medical ONCE, 1 Branch dose, On Sun09/15/22 at 1045, Routine meloxicam 3-0 Yes 15mg Take 1 Univer s 15 mg 2-03 tablet by ity of tablet 00:00: mouth in [place] 00 the Medical morning. Branch meloxicam 2023-0 Yes 15mg Take 1 Univer s 15 mg 2-03 tablet by ity of tablet 00:00: mouth in [place] 00 the Medical morning. Branch meloxicam 2023-0 Yes [id number] 15mg Take 1 U nivers 15 mg 2-03 tablet by ity of tablet 00:00: mouth in [place] 00 the Medical morning. Branch meloxicam 3-0 Yes [id number] 15mg Take 1 U nivers 15 mg 2-03 tablet by ity of tablet 00:00: mouth in [place] 00 the Medical morning. Branch meloxicam 3-0 Yes [id number] 15mg Take 1 U nivers 15 mg 2-03 tablet by ity of tablet 00:00: mouth in [place] 00 the Medical morning. Branch meloxicam 3-0 Yes [id number] 15mg Take 1 U nivers 15 mg 2-03 tablet by ity of tablet 00:00: mouth in [place] 00 the Medical morning. Branch meloxicam 3-0 Yes [id number] 15mg Take 1 U nivers 15 mg 2-03 tablet by ity of tablet 00:00: mouth in [place] 00 the Medical morning. Branch meloxicam 2022-0 Yes [id number] 15mg Take 1 U nivers 15 mg 2-03 tablet by ity of tablet 00:00: mouth in [place] 00 the Medical morning. Branch meloxicam 2022-0 Yes [id number] 15mg Take 1 U nivers 15 mg 2-03 tablet by ity of tablet 00:00: mouth in [place] 00 the Medical morning. Branch meloxicam 2022-0 Yes [id number] 15mg Take 1 U nivers 15 mg 2-03 tablet by ity of tablet 00:00: mouth in [place] 00 the Medical morning. Branch meloxicam 2022-0 Yes [id number] 15mg Take 1 U nivers 15 mg 2-03 tablet by ity of tablet 00:00: mouth in [place] 00 the Medical morning. Branch meloxicam 3-0 Yes [id number] 15mg Take 1 U nivers 15 mg 2-03 tablet by ity of tablet 00:00: mouth in [place] 00 the Medical morning. Branch meloxicam 3-0 Yes [id number] 15mg Take 1 U nivers 15 mg 2-03 tablet by ity of tablet 00:00: mouth in [place] 00 the Medical morning. Branch meloxicam 3-0 Yes [id number] 15mg Take 1 U nivers 15 mg 2-03 tablet by ity of tablet 00:00: mouth in [place] 00 the Medical morning. Branch meloxicam 3-0 Yes [id number] 15mg Take 1 U nivers 15 mg 2-03 tablet by ity of tablet 00:00: mouth in [place] 00 the Medical morning. Branch meloxicam 3-0 Yes [id number] 15mg Take 1 U nivers 15 mg 2-03 tablet by ity of tablet 00:00: mouth in [place] 00 the Medical morning. Branch meloxicam 2022-0 Yes [id number] 15mg Take 1 U nivers 15 mg 2-03 tablet by ity of tablet 00:00: mouth in [place] 00 the Medical morning. Branch meloxicam 2022-0 Yes [id number] 15mg Take 1 U nivers 15 mg 2-03 tablet by ity of tablet 00:00: mouth in [place] 00 the Medical morning. Branch meloxicam 2022-0 Yes [id number] 15mg Take 1 U nivers 15 mg 2-03 tablet by ity of tablet 00:00: mouth in [place] 00 the Medical morning. Branch meloxicam 2022-0 Yes [id number] 15mg Take 1 U nivers 15 mg 2-03 tablet by ity of tablet 00:00: mouth in [place] 00 the Medical morning. Branch meloxicam 2022-0 Yes [id number] 15mg Take 1 U nivers 15 mg 2-03 tablet by ity of tablet 00:00: mouth in [place] 00 the Medical morning. Branch meloxicam 2022-0 Yes [id number] 15mg Take 1 U nivers 15 mg 2-03 tablet by ity of tablet 00:00: mouth in [place] 00 the Medical morning. Branch meloxicam 2022-0 Yes [id number] 15mg Take 1 U nivers 15 mg 2-03 tablet by ity of tablet 00:00: mouth in [place] 00 the Medical morning. Branch meloxicam 2022-0 Yes [id number] 15mg Take 1 U nivers 15 mg 2-03 tablet by ity of tablet 00:00: mouth in [place] 00 the Medical morning. Branch meloxicam 3-0 Yes [id number] 15mg Take 1 U nivers 15 mg 2-03 tablet by ity of tablet 00:00: mouth in [place] 00 the Medical morning. Branch meloxicam 3-0 Yes [id number] 15mg Take 1 U nivers 15 mg 2-03 tablet by ity of tablet 00:00: mouth in [place] 00 the Medical morning. Branch meloxicam 3-0 Yes [id number] 15mg Take 1 U nivers 15 mg 2-03 tablet by ity of tablet 00:00: mouth in [place] 00 the Medical morning. Branch meloxicam 3-0 Yes [id number] 15mg Take 1 U nivers 15 mg 2-03 tablet by ity of tablet 00:00: mouth in [place] 00 the Medical morning. Branch meloxicam 3-0 Yes [id number] 15mg Take 1 U nivers 15 mg 2-03 tablet by ity of tablet 00:00: mouth in [place] 00 the Medical morning. Branch meloxicam 3-0 Yes [id number] 15mg Take 1 U nivers 15 mg 2-03 tablet by ity of tablet 00:00: mouth in [place] 00 the Medical morning. Branch meloxicam 3-0 Yes [id number] 15mg Take 1 U nivers 15 mg 2-03 tablet by ity of tablet 00:00: mouth in [place] the Medical morning. Branch meloxicam 3-0 Yes [id number] 15mg Take 1 U nivers 15 mg 2-03 tablet by ity of tablet 00:00: mouth in [place] the Medical morning. Branch meloxicam 2022-0 Yes [id number] 15mg Take 1 U nivers 15 mg 2-03 tablet by ity of tablet 00:00: mouth in [place] 00 the Medical morning. Branch meloxicam 2022-0 Yes [id number] 15mg Take 1 U nivers 15 mg 2-03 tablet by ity of tablet 00:00: mouth in [place] 00 the Medical morning. Branch meloxicam 3-0 Yes [id number] 15mg Take 1 U nivers 15 mg 2-03 tablet by ity of tablet 00:00: mouth in [place] 00 the Medical morning. Branch meloxicam 3-0 Yes [id number] 15mg Take 1 U nivers 15 mg 2-03 tablet by ity of tablet 00:00: mouth in [place] 00 the Medical morning. Branch meloxicam 3-0 Yes [id number] 15mg Take 1 U nivers 15 mg 2-03 tablet by ity of tablet 00:00: mouth in [place] 00 the Medical morning. Branch meloxicam 3-0 Yes [id number] 15mg Take 1 U nivers 15 mg 2-03 tablet by ity of tablet 00:00: mouth in [place] 00 the Medical morning. Branch meloxicam 3-0 Yes [id number] 15mg Take 1 U nivers 15 mg 2-03 tablet by ity of tablet 00:00: mouth in [place] 00 the Medical morning. Branch meloxicam 2022-0 Yes [id number] 15mg Take 1 U nivers 15 mg 2-03 tablet by ity of tablet 00:00: mouth in [place] 00 the Medical morning. Branch meloxicam 3-0 Yes [id number] 15mg Take 1 U nivers 15 mg 2-03 tablet by ity of tablet 00:00: mouth in [place] 00 the Medical morning. Branch meloxicam 2022-0 Yes [id number] 15mg Take 1 U nivers 15 mg 2-03 tablet by ity of tablet 00:00: mouth in [place] 00 the Medical morning. Branch meloxicam 2022-0 Yes [id number] 15mg Take 1 U nivers 15 mg 2-03 tablet by ity of tablet 00:00: mouth in [place] 00 the Medical morning. Branch meloxicam 2022-0 Yes [id number] 15mg Take 1 U nivers 15 mg 2-03 tablet by ity of tablet 00:00: mouth in [place] 00 the Medical morning. Branch meloxicam 2022-0 Yes [id number] 15mg Take 1 U nivers 15 mg 2-03 tablet by ity of tablet 00:00: mouth in [place] 00 the Medical morning. Branch meloxicam 2022-0 Yes [id number] 15mg Take 1 U nivers 15 mg 2-03 tablet by ity of tablet 00:00: mouth in [place] 00 the Medical morning. Branch meloxicam 2022-0 Yes [id number] 15mg Take 1 U nivers 15 mg 2-03 tablet by ity of tablet 00:00: mouth in [place] 00 the Medical morning. Branch meloxicam 2022-0 Yes [id number] 15mg Take 1 U nivers 15 mg 2-03 tablet by ity of tablet 00:00: mouth in [place] 00 the Medical morning. Branch meloxicam 3-0 Yes [id number] 15mg Take 1 U nivers 15 mg 2-03 tablet by ity of tablet 00:00: mouth in [place] 00 the Medical morning. Branch meloxicam 3-0 Yes [id number] 15mg Take 1 U nivers 15 mg 2-03 tablet by ity of tablet 00:00: mouth in [place] 00 the Medical morning. Branch meloxicam 2022-0 Yes [id number] 15mg Take 1 U nivers 15 mg 2-03 tablet by ity of tablet 00:00: mouth in [place] 00 the Medical morning. Branch meloxicam 2022-0 Yes [id number] 15mg Take 1 U nivers 15 mg 2-03 tablet by ity of tablet 00:00: mouth in [place] 00 the Medical morning. Branch meloxicam 2022-0 Yes [id number] 15mg Take 1 U nivers 15 mg 2-03 tablet by ity of tablet 00:00: mouth in [place] 00 the Medical morning. Branch meloxicam 2022-0 Yes [id number] 15mg Take 1 U nivers 15 mg 2-03 tablet by ity of tablet 00:00: mouth in [place] 00 the Medical morning. Branch meloxicam 2022-0 Yes [id number] 15mg Take 1 U nivers 15 mg 2-03 tablet by ity of tablet 00:00: mouth in [place] 00 the Medical morning. Branch meloxicam 2022-0 Yes [id number] 15mg Take 1 U nivers 15 mg 2-03 tablet by ity of tablet 00:00: mouth in [place] 00 the Medical morning. Branch meloxicam 2022-0 Yes [id number] 15mg Take 1 U nivers 15 mg 2-03 tablet by ity of tablet 00:00: mouth in [place] 00 the Medical morning. Branch meloxicam 2022-0 2022- No [id number] 15mg Take 1 [facility] 15 mg 2-03 03-16 tablet by ity of tablet 00:00: 00:00 mouth in [place] 00 :00 the Medical morning. Branch meloxicam 2022-0 3- No [id number] 15mg Take 1 [facility] 15 mg 2-03 03-16 tablet by ity of tablet 00:00: 00:00 mouth in [place] 00 :00 the Medical morning. Branch meloxicam 2022-0 3- No [id number] 15mg Take 1 [facility] 15 mg 2-03 03-16 tablet by ity of tablet 00:00: 00:00 mouth in [place] 00 :00 the Medical morning. Branch meloxicam 3-0 3- No [id number] 15mg Take 1 [facility] 15 mg 2-03 03-16 tablet by ity of tablet 00:00: 00:00 mouth in [place] 00 :00 the Medical morning. Branch semaglutide 2022-0 Yes [id number] 1mg inject 1 [facility] (OZEMPIC) 1 2-01 mg under ity of mg/dose (4 00:00: the skin [place] as mg/3 mL) 00 weekly. [facility] pioglitazon 2022-0 Yes [id number] 30mg Take 1 Univers e 30 mg 2-01 tablet by ity of tablet 00:00: mouth in [place] 00 the Medical morning. Branch metFORMIN 2022-0 Yes [id number] 1000mg Take 1 [facility] 1[facility]000 mg 2-01 tablet by ity of tablet 00:00: mouth in [place] the Medical morning Branch and 1 tablet in the evening. Take with meals. semaglutide 2022-0 Yes [id number] 1mg inject 1 [facility] (OZEMPIC) 1 2-01 mg under ity of mg/dose (4 00:00: the skin [place] as mg/3 mL) 00 weekly. [facility] pioglitazon 2022-0 Yes [id number] 30mg Take 1 [facility] e 30 mg 2-01 tablet by ity of tablet 00:00: mouth in [place] the Medical morning. Branch metFORMIN 2022-0 Yes [id number] 1000mg Take 1 [facility] 1,000 mg 2-01 tablet by ity of tablet 00:00: mouth in [place] the Medical morning Branch and 1 tablet in the evening. Take with meals. semaglutide 2022-0 Yes [id number] 1mg inject 1 [facility] (OZEMPIC) 1 2-01 mg under ity of mg/dose (4 00:00: the skin [place] as mg/3 mL) 00 weekly. [facility] pioglitazon 2022-0 Yes [id number] 30mg Take 1 [facility] e 30 mg 2-01 tablet by ity of tablet 00:00: mouth in [place] the Medical morning. Branch metFORMIN 2022-0 Yes [id number] 1000mg Take 1 [facility] 1,000 mg 2-01 tablet by ity of tablet 00:00: mouth in [place] the Medical morning Branch and 1 tablet in the evening. Take with meals. semaglutide 2022-0 Yes [id number] 1mg inject 1 [facility] (OZEMPIC) 1 2-01 mg under ity of mg/dose (4 00:00: the skin [place] mg/3 mL) 00 weekly. [facility] pioglitazon 2022-0 Yes [id number] 30mg Take 1 [facility] e 30 mg 2-01 tablet by ity of tablet 00:00: mouth in [place] the morning. Branch metFORMIN 2022-0 Yes [id number] 1000mg Take 1 [facility] 1,000 mg 2-01 tablet by ity of tablet 00:00: mouth in [place] the Medical morning Branch and 1 tablet in the evening. Take with meals. semaglutide 2022-0 Yes [id number] 1mg inject 1 [facility] (OZEMPIC) 1 2-01 mg under ity of mg/dose (4 00:00: the skin [place] mg/3 mL) 00 weekly. [facility] pioglitazon 2022-0 Yes [id number] 30mg Take 1 [facility] e 30 mg 2-01 tablet by ity of tablet 00:00: mouth in [place] the morning. Branch metFORMIN 2022-0 Yes [id number] 1000mg Take 1 [facility] 1,000 mg 2-01 tablet by ity of tablet 00:00: mouth in [place] the morning Branch and 1 tablet in the evening. Take with meals. semaglutide 2022-0 Yes [id number] 1mg inject 1 [facility] (OZEMPIC) 1 2-01 mg under ity of mg/dose (4 00:00: the skin [place] mg/3 mL) 00 weekly. [facility] pioglitazon 2022-0 Yes [id number] 30mg Take 1 [facility] e 30 mg 2-01 tablet by ity of tablet 00:00: mouth in [place] the morning. Branch metFORMIN 2022-0 Yes [id number] 1000mg Take 1 [facility] 1,000 mg 2-01 tablet by ity of tablet 00:00: mouth in [place] the morning Branch and 1 tablet in the evening. Take with meals. semaglutide 2022-0 Yes [id number] 1mg inject 1 [facility] (OZEMPIC) 1 2-01 mg under ity of mg/dose (4 00:00: the skin [place] as mg/3 mL) 00 weekly. [facility] pioglitazon 2022-0 Yes [id number] 30mg Take 1 [facility] e 30 mg 2-01 tablet by ity of tablet 00:00: mouth in [place] the morning. Branch metFORMIN 2022-0 Yes [id number] 1000mg Take 1 [facility] 1,000 mg 2-01 tablet by ity of tablet 00:00: mouth in [place] the morning Branch and 1 tablet in the evening. Take with meals. semaglutide 2022-0 Yes [id number] 1mg inject 1 [facility] (OZEMPIC) 1 2-01 mg under ity of mg/dose (4 00:00: the skin [place] as mg/3 mL) 00 weekly. [facility] pioglitazon 2022-0 Yes [id number] 30mg Take 1 [facility] e 30 mg 2-01 tablet by ity of tablet 00:00: mouth in [place] the morning. Branch metFORMIN 2022-0 Yes [id number] 1000mg Take 1 [facility] 1,000 mg 2-01 tablet by ity of tablet 00:00: mouth in [place] the morning Branch and 1 tablet in the evening. Take with meals. semaglutide 2022-0 Yes [id number] 1mg inject 1 [facility] (OZEMPIC) 1 2-01 mg under ity of mg/dose (4 00:00: the skin [place] as mg/3 mL) 00 weekly. [facility] pioglitazon 2022-0 Yes [id number] 30mg Take 1 [facility] e 30 mg 2-01 tablet by ity of tablet 00:00: mouth in [place] the morning. Branch metFORMIN 2022-0 Yes [id number] 1000mg Take 1 [facility] 1,000 mg 2-01 tablet by ity of tablet 00:00: mouth in [place] the morning Branch and 1 tablet in the evening. Take with meals. semaglutide 2022-0 Yes [id number] 1mg inject 1 [facility] (OZEMPIC) 1 2-01 mg under ity of mg/dose (4 00:00: the skin [place] as mg/3 mL) 00 weekly. [facility] pioglitazon 2022-0 Yes [id number] 30mg Take 1 [facility] e 30 mg 2-01 tablet by ity of tablet 00:00: mouth in [place] the morning. Branch metFORMIN 2023-0 Yes [id number] 1000mg Take 1 [facility] 1,000 mg 2-01 tablet by ity of tablet 00:00: mouth in [place] the morning Branch and 1 tablet in the evening. Take with meals. semaglutide 2022-0 Yes [id number] 1mg inject 1 [facility] (OZEMPIC) 1 2-01 mg under ity of mg/dose (4 00:00: the skin [place] as mg/3 mL) 00 weekly. [facility] pioglitazon 2022-0 Yes [id number] 30mg Take 1 [facility] e 30 mg 2-01 tablet by ity of tablet 00:00: mouth in [place] the morning. Branch metFORMIN 2022-0 Yes [id number] 1000mg Take 1 [facility] 1,000 mg 2-01 tablet by ity of tablet 00:00: mouth in [place] the morning Branch and 1 tablet in the evening. Take with meals. semaglutide 2022-0 Yes [id number] 1mg inject 1 [facility] (OZEMPIC) 1 2-01 mg under ity of mg/dose (4 00:00: the skin [place] as mg/3 mL) 00 weekly. [facility] pioglitazon 2022-0 Yes [id number] 30mg Take 1 [facility] e 30 mg 2-01 tablet by ity of tablet 00:00: mouth in [place] the morning. Branch metFORMIN 2022-0 Yes [id number] 1000mg Take 1 [facility] 1,000 mg 2-01 tablet by ity of tablet 00:00: mouth in [place] the morning Branch and 1 tablet in the evening. Take with meals. semaglutide 2022-0 Yes [id number] 1mg inject 1 [facility] (OZEMPIC) 1 2-01 mg under ity of mg/dose (4 00:00: the skin [place] mg/3 mL) 00 weekly. [facility] pioglitazon 2022-0 Yes [id number] 30mg Take 1 [facility] e 30 mg 2-01 tablet by ity of tablet 00:00: mouth in [place] the morning. Branch metFORMIN 2022-0 Yes [id number] 1000mg Take 1 [facility] 1,000 mg 2-01 tablet by ity of tablet 00:00: mouth in [place] the morning Branch and 1 tablet in the evening. Take with meals. semaglutide 3-0 Yes [id number] 1mg inject 1 [facility] (OZEMPIC) 1 2-01 mg under ity of mg/dose (4 00:00: the skin [place] mg/3 mL) 00 weekly. [facility] pioglitazon 3-0 Yes [id number] 30mg Take 1 [facility] e 30 mg 2-01 tablet by ity of tablet 00:00: mouth in [place] the morning. Branch metFORMIN 3-0 Yes [id number] 1000mg Take 1 [facility] 1,000 mg 2-01 tablet by ity of tablet 00:00: mouth in [place] the Medical morning Branch and 1 tablet in the evening. Take with meals. semaglutide 3-0 Yes [id number] 1mg inject 1 [facility] (OZEMPIC) 1 2-01 mg under ity of mg/dose (4 00:00: the skin [place] as mg/3 mL) 00 weekly. Medical [facility] pioglitazon 2022-0 Yes [id number] 30mg Take 1 [facility] e 30 mg 2-01 tablet by ity of tablet 00:00: mouth in [place] the morning. Branch metFORMIN 2022-0 Yes [id number] 1000mg Take 1 [facility] 1,000 mg 2-01 tablet by ity of tablet 00:00: mouth in [place] the morning Branch and 1 tablet in the evening. Take with meals. semaglutide 3-0 Yes [id number] 1mg inject 1 [facility] (OZEMPIC) 1 2-01 mg under ity of mg/dose (4 00:00: the skin [place] as mg/3 mL) 00 weekly. Medical [facility] Branch pioglitazon 3-0 Yes [id number] 30mg Take 1 [facility] e 30 mg 2-01 tablet by ity of tablet 00:00: mouth in [place] the morning. Branch metFORMIN 3-0 Yes [id number] 1000mg Take 1 [facility] 1,000 mg 2-01 tablet by ity of tablet 00:00: mouth in [place] the morning Branch and 1 tablet in the evening. Take with meals. semaglutide 3-0 Yes [id number] 1mg inject 1 [facility] (OZEMPIC) 1 2-01 mg under ity of mg/dose (4 00:00: the skin [place] as mg/3 mL) 00 weekly. Medical [facility] pioglitazon 2022-0 Yes [id number] 30mg Take 1 [facility] e 30 mg 2-01 tablet by ity of tablet 00:00: mouth in [place] the morning. Branch metFORMIN 2022-0 Yes [id number] 1000mg Take 1 [facility] 1,000 mg 2-01 tablet by ity of tablet 00:00: mouth in [place] the Medical morning Branch and 1 tablet in the evening. Take with meals. semaglutide 2022-0 Yes [id number] 1mg inject 1 [facility] (OZEMPIC) 1 2-01 mg under ity of mg/dose (4 00:00: the skin [place] as mg/3 mL) 00 weekly. [facility] pioglitazon 2022-0 Yes [id number] 30mg Take 1 [facility] e 30 mg 2-01 tablet by ity of tablet 00:00: mouth in [place] the morning. Branch metFORMIN 2022-0 Yes [id number] 1000mg Take 1 [facility] 1,000 mg 2-01 tablet by ity of tablet 00:00: mouth in [place] the morning Branch and 1 tablet in the evening. Take with meals. semaglutide 2022-0 Yes [id number] 1mg inject 1 [facility] (OZEMPIC) 1 2-01 mg under ity of mg/dose (4 00:00: the skin [place] as mg/3 mL) 00 weekly. [facility] pioglitazon 2022-0 Yes [id number] 30mg Take 1 [facility] e 30 mg 2-01 tablet by ity of tablet 00:00: mouth in [place] the morning. Branch metFORMIN 2022-0 Yes [id number] 1000mg Take 1 [facility] 1,000 mg 2-01 tablet by ity of tablet 00:00: mouth in [place] the Medical morning Branch and 1 tablet in the evening. Take with meals. semaglutide 2022-0 Yes [id number] 1mg inject 1 [facility] (OZEMPIC) 1 2-01 mg under ity of mg/dose (4 00:00: the skin [place] as mg/3 mL) 00 weekly. [facility] pioglitazon 2022-0 Yes [id number] 30mg Take 1 [facility] e 30 mg 2-01 tablet by ity of tablet 00:00: mouth in [place] the Medical morning. Branch metFORMIN 2022-0 Yes [id number] 1000mg Take 1 [facility] 1,000 mg 2-01 tablet by ity of tablet 00:00: mouth in [place] the morning Branch and 1 tablet in the evening. Take with meals. semaglutide 2022-0 Yes [id number] 1mg inject 1 [facility] (OZEMPIC) 1 2-01 mg under ity of mg/dose (4 00:00: the skin [place] as mg/3 mL) 00 weekly. [facility] pioglitazon 2022-0 Yes [id number] 30mg Take 1 [facility] e 30 mg 2-01 tablet by ity of tablet 00:00: mouth in [place] the morning. Branch metFORMIN 2022-0 Yes [id number] 1000mg Take 1 [facility] 1,000 mg 2-01 tablet by ity of tablet 00:00: mouth in [place] the morning Branch and 1 tablet in the evening. Take with meals. semaglutide 2022-0 Yes [id number] 1mg inject 1 [facility] (OZEMPIC) 1 2-01 mg under ity of mg/dose (4 00:00: the skin [place] as mg/3 mL) 00 weekly. [facility] pioglitazon 2022-0 Yes [id number] 30mg Take 1 [facility] e 30 mg 2-01 tablet by ity of tablet 00:00: mouth in [place] the morning. Branch metFORMIN 2022-0 Yes [id number] 1000mg Take 1 [facility] 1,000 mg 2-01 tablet by ity of tablet 00:00: mouth in [place] the morning Branch and 1 tablet in the evening. Take with meals. semaglutide 3-0 Yes [id number] 1mg inject 1 [facility] (OZEMPIC) 1 2-01 mg under ity of mg/dose (4 00:00: the skin [place] as mg/3 mL) 00 weekly. [facility] pioglitazon 2022-0 Yes [id number] 30mg Take 1 [facility] e 30 mg 2-01 tablet by ity of tablet 00:00: mouth in [place] the morning. Branch metFORMIN 3-0 Yes [id number] 1000mg Take 1 [facility] 1,000 mg 2-01 tablet by ity of tablet 00:00: mouth in [place] the morning Branch and 1 tablet in the evening. Take with meals. semaglutide 3-0 Yes [id number] 1mg inject 1 [facility] (OZEMPIC) 1 2-01 mg under ity of mg/dose (4 00:00: the skin [place] as mg/3 mL) 00 weekly. [facility] pioglitazon 3-0 Yes [id number] 30mg Take 1 [facility] e 30 mg 2-01 tablet by ity of tablet 00:00: mouth in [place] the morning. Branch metFORMIN 3-0 Yes [id number] 1000mg Take 1 [facility] 1,000 mg 2-01 tablet by ity of tablet 00:00: mouth in [place] the morning Branch and 1 tablet in the evening. Take with meals. semaglutide 3-0 Yes [id number] 1mg inject 1 [facility] (OZEMPIC) 1 2-01 mg under ity of mg/dose (4 00:00: the skin [place] as mg/3 mL) 00 weekly. [facility] pioglitazon 2022-0 Yes [id number] 30mg Take 1 [facility] e 30 mg 2-01 tablet by ity of tablet 00:00: mouth in [place] the morning. Branch metFORMIN 2022-0 Yes [id number] 1000mg Take 1 [facility] 1,000 mg 2-01 tablet by ity of tablet 00:00: mouth in [place] the morning Branch and 1 tablet in the evening. Take with meals. semaglutide 3-0 Yes [id number] 1mg inject 1 [facility] (OZEMPIC) 1 2-01 mg under ity of mg/dose (4 00:00: the skin [place] as mg/3 mL) 00 weekly. [facility] pioglitazon 2022-0 Yes [id number] 30mg Take 1 [facility] e 30 mg 2-01 tablet by ity of tablet 00:00: mouth in [place] the morning. Branch metFORMIN 3-0 Yes [id number] 1000mg Take 1 [facility] 1,000 mg 2-01 tablet by ity of tablet 00:00: mouth in [place] the morning Branch and 1 tablet in the evening. Take with meals. semaglutide 3-0 Yes [id number] 1mg inject 1 [facility] (OZEMPIC) 1 2-01 mg under ity of mg/dose (4 00:00: the skin [place] as mg/3 mL) 00 weekly. [facility] pioglitazon 2022-0 Yes [id number] 30mg Take 1 [facility] e 30 mg 2-01 tablet by ity of tablet 00:00: mouth in [place] the morning. Branch metFORMIN 2022-0 Yes [id number] 1000mg Take 1 [facility] 1,000 mg 2-01 tablet by ity of tablet 00:00: mouth in [place] the morning Branch and 1 tablet in the evening. Take with meals. semaglutide 2022-0 Yes [id number] 1mg inject 1 [facility] (OZEMPIC) 1 2-01 mg under ity of mg/dose (4 00:00: the skin [place] as mg/3 mL) 00 weekly. [facility] pioglitazon 2022-0 Yes [id number] 30mg Take 1 [facility] e 30 mg 2-01 tablet by ity of tablet 00:00: mouth in [place] the morning. Branch metFORMIN 2022-0 Yes [id number] 1000mg Take 1 [facility] 1,000 mg 2-01 tablet by ity of tablet 00:00: mouth in [place] the morning Branch and 1 tablet in the evening. Take with meals. semaglutide 2022-0 Yes [id number] 1mg inject 1 [facility] (OZEMPIC) 1 2-01 mg under ity of mg/dose (4 00:00: the skin [place] as mg/3 mL) 00 weekly. [facility] pioglitazon 2022-0 Yes [id number] 30mg Take 1 [facility] e 30 mg 2-01 tablet by ity of tablet 00:00: mouth in [place] the morning. Branch metFORMIN 2022-0 Yes [id number] 1000mg Take 1 [facility] 1,000 mg 2-01 tablet by ity of tablet 00:00: mouth in [place] the morning Branch and 1 tablet in the evening. Take with meals. semaglutide 2022-0 Yes [id number] 1mg inject 1 [facility] (OZEMPIC) 1 2-01 mg under ity of mg/dose (4 00:00: the skin [place] as mg/3 mL) 00 weekly. [facility] pioglitazon 2022-0 Yes [id number] 30mg Take 1 [facility] e 30 mg 2-01 tablet by ity of tablet 00:00: mouth in [place] the morning. Branch metFORMIN 3-0 Yes [id number] 1000mg Take 1 [facility] 1,000 mg 2-01 tablet by ity of tablet 00:00: mouth in [place] the morning Branch and 1 tablet in the evening. Take with meals. semaglutide 3-0 Yes [id number] 1mg inject 1 [facility] (OZEMPIC) 1 2-01 mg under ity of mg/dose (4 00:00: the skin [place] as mg/3 mL) 00 weekly. [facility] pioglitazon 2022-0 Yes [id number] 30mg Take 1 [facility] e 30 mg 2-01 tablet by ity of tablet 00:00: mouth in [place] the morning. Branch metFORMIN 2022-0 Yes [id number] 1000mg Take 1 [facility] 1,000 mg 2-01 tablet by ity of tablet 00:00: mouth in [place] the morning Branch and 1 tablet in the evening. Take with meals. semaglutide 2022-0 Yes [id number] 1mg inject 1 [facility] (OZEMPIC) 1 2-01 mg under ity of mg/dose (4 00:00: the skin [place] as mg/3 mL) 00 weekly. [facility] pioglitazon 2022-0 Yes [id number] 30mg Take 1 [facility] e 30 mg 2-01 tablet by ity of tablet 00:00: mouth in [place] the morning. Branch metFORMIN 2022-0 Yes [id number] 1000mg Take 1 [facility] 1,000 mg 2-01 tablet by ity of tablet 00:00: mouth in [place] the morning Branch and 1 tablet in the evening. Take with meals. semaglutide 2022-0 Yes [id number] 1mg inject 1 [facility] (OZEMPIC) 1 2-01 mg under ity of mg/dose (4 00:00: the skin [place] as mg/3 mL) 00 weekly. [facility] pioglitazon 2022-0 Yes [id number] 30mg Take 1 [facility] e 30 mg 2-01 tablet by ity of tablet 00:00: mouth in [place] the morning. Branch metFORMIN 3-0 Yes [id number] 1000mg Take 1 [facility] 1,000 mg 2-01 tablet by ity of tablet 00:00: mouth in [place] the morning Branch and 1 tablet in the evening. Take with meals. semaglutide 3-0 Yes [id number] 1mg inject 1 [facility] (OZEMPIC) 1 2-01 mg under ity of mg/dose (4 00:00: the skin [place] as mg/3 mL) 00 weekly. [facility] pioglitazon 3-0 Yes [id number] 30mg Take 1 [facility] e 30 mg 2-01 tablet by ity of tablet 00:00: mouth in [place] the morning. Branch metFORMIN 2022-0 Yes [id number] 1000mg Take 1 [facility] 1,000 mg 2-01 tablet by ity of tablet 00:00: mouth in [place] the morning Branch and 1 tablet in the evening. Take with meals. semaglutide 2022-0 Yes [id number] 1mg inject 1 [facility] (OZEMPIC) 1 2-01 mg under ity of mg/dose (4 00:00: the skin [place] as mg/3 mL) 00 weekly. [facility] pioglitazon 2022-0 Yes [id number] 30mg Take 1 [facility] e 30 mg 2-01 tablet by ity of tablet 00:00: mouth in [place] the morning. Branch metFORMIN 2022-0 Yes [id number] 1000mg Take 1 [facility] 1,000 mg 2-01 tablet by ity of tablet 00:00: mouth in [place] the morning Branch and 1 tablet in the evening. Take with meals. semaglutide 3-0 Yes [id number] 1mg inject 1 [facility] (OZEMPIC) 1 2-01 mg under ity of mg/dose (4 00:00: the skin [place] as mg/3 mL) 00 weekly. [facility] pioglitazon 2022-0 Yes [id number] 30mg Take 1 [facility] e 30 mg 2-01 tablet by ity of tablet 00:00: mouth in [place] the morning. Branch metFORMIN 2022-0 Yes [id number] 1000mg Take 1 [facility] 1,000 mg 2-01 tablet by ity of tablet 00:00: mouth in [place] [address] the morning Branch and 1 tablet in the evening. Take with meals. semaglutide 3-0 Yes [id number] 1mg inject 1 [facility] (OZEMPIC) 1 2-01 mg under ity of mg/dose (4 00:00: the skin [place] as mg/3 mL) 00 weekly. [facility] pioglitazon 2022-0 Yes [id number] 30mg Take 1 [facility] e 30 mg 2-01 tablet by ity of tablet 00:00: mouth in [place] the morning. Branch metFORMIN 2022-0 Yes [id number] 1000mg Take 1 [facility] 1,000 mg 2-01 tablet by ity of tablet 00:00: mouth in [place] the morning Branch and 1 tablet in the evening. Take with meals. semaglutide 2022-0 Yes [id number] 1mg inject 1 [facility] (OZEMPIC) 1 2-01 mg under ity of mg/dose (4 00:00: the skin [place] as mg/3 mL) 00 weekly. [facility] pioglitazon 2022-0 Yes [id number] 30mg Take 1 [facility] e 30 mg 2-01 tablet by ity of tablet 00:00: mouth in [place] the morning. Branch metFORMIN 2022-0 Yes [id number] 1000mg Take 1 [facility] 1,000 mg 2-01 tablet by ity of tablet 00:00: mouth in [place] the morning Branch and 1 tablet in the evening. Take with meals. semaglutide 2022-0 Yes [id number] 1mg inject 1 [facility] (OZEMPIC) 1 2-01 mg under ity of mg/dose (4 00:00: the skin [place] as mg/3 mL) 00 weekly. [facility] pioglitazon 2022-0 Yes [id number] 30mg Take 1 [facility] e 30 mg 2-01 tablet by ity of tablet 00:00: mouth in [place] the morning. Branch metFORMIN 2022-0 Yes [id number] 1000mg Take 1 [facility] 1,000 mg 2-01 tablet by ity of tablet 00:00: mouth in [place] the morning Branch and 1 tablet in the evening. Take with meals. semaglutide 2022-0 Yes [id number] 1mg inject 1 [facility] (OZEMPIC) 1 2-01 mg under ity of mg/dose (4 00:00: the skin [place] as mg/3 mL) 00 weekly. [facility] pioglitazon 2022-0 Yes [id number] 30mg Take 1 [facility] e 30 mg 2-01 tablet by ity of tablet 00:00: mouth in [place] the morning. Branch metFORMIN 3-0 Yes [id number] 1000mg Take 1 [facility] 1,000 mg 2-01 tablet by ity of tablet 00:00: mouth in [place] the morning Branch and 1 tablet in the evening. Take with meals. pioglitazon 3-0 Yes [id number] 30mg Take 1 [facility] e 30 mg 2-01 tablet by ity of tablet 00:00: mouth in [place] the morning. Branch metFORMIN 3-0 Yes [id number] 1000mg Take 1 [facility] 1,000 mg 2-01 tablet by ity of tablet 00:00: mouth in [place] the morning Branch and 1 tablet in the evening. Take with meals. pioglitazon 3-0 Yes [id number] 30mg Take 1 [facility] e 30 mg 2-01 tablet by ity of tablet 00:00: mouth in [place] the morning. Branch metFORMIN 2022-0 Yes [id number] 1000mg Take 1 [facility] 1,000 mg 2-01 tablet by ity of tablet 00:00: mouth in [place] the Branch and 1 tablet in the evening. Take with meals. pioglitazon 3-0 Yes [id number] 30mg Take 1 [facility] e 30 mg 2-01 tablet by ity of tablet 00:00: mouth in [place] the morning. Branch metFORMIN 2022-0 Yes [id number] 1000mg Take 1 [facility] 1,000 mg 2-01 tablet by ity of tablet 00:00: mouth in [place] the Branch and 1 tablet in the evening. Take with meals. pioglitazon 3-0 Yes [id number] 30mg Take 1 [facility] e 30 mg 2-01 tablet by ity of tablet 00:00: mouth in [place] the morning. Branch metFORMIN 3-0 Yes [id number] 1000mg Take 1 [facility] 1,000 mg 2-01 tablet by ity of tablet 00:00: mouth in [place] [address] the morning Branch and 1 tablet in the evening. Take with meals. pioglitazon 2023-0 Yes [id number] 30mg Take 1 [facility] e 30 mg 2-01 tablet by ity of tablet 00:00: mouth in [place] the morning. Branch metFORMIN 2023-0 Yes [id number] 1000mg Take 1 [facility] 1,000 mg 2-01 tablet by ity of tablet 00:00: mouth in [place] the morning Branch and 1 tablet in the evening. Take with meals. pioglitazon 2023-0 Yes [id number] 30mg Take 1 [facility] e 30 mg 2-01 tablet by ity of tablet 00:00: mouth in [place] the morning. Branch metFORMIN 2023-0 Yes [id number] 1000mg Take 1 [facility] 1,000 mg 2-01 tablet by ity of tablet 00:00: mouth in [place] the morning Branch and 1 tablet in the evening. Take with meals. pioglitazon 2023-0 Yes [id number] 30mg Take 1 [facility] e 30 mg 2-01 tablet by ity of tablet 00:00: mouth in [place] the morning. Branch metFORMIN 3-0 Yes [id number] 1000mg Take 1 [facility] 1,000 mg 2-01 tablet by ity of tablet 00:00: mouth in [place] the Branch and 1 tablet in the evening. Take with meals. pioglitazon 3-0 Yes [id number] 30mg Take 1 [facility] e 30 mg 2-01 tablet by ity of tablet 00:00: mouth in [place] the morning. Branch metFORMIN 3-0 Yes [id number] 1000mg Take 1 [facility] 1,000 mg 2-01 tablet by ity of tablet 00:00: mouth in [place] the Branch and 1 tablet in the evening. Take with meals. pioglitazon 2023-0 Yes [id number] 30mg Take 1 [facility] e 30 mg 2-01 tablet by ity of tablet 00:00: mouth in [place] the morning. Branch metFORMIN 3-0 Yes [id number] 1000mg Take 1 [facility] 1,000 mg 2-01 tablet by ity of tablet 00:00: mouth in [place] [address] the morning Branch and 1 tablet in the evening. Take with meals. pioglitazon 2023-0 Yes [id number] 30mg Take 1 [facility] e 30 mg 2-01 tablet by ity of tablet 00:00: mouth in [place] the morning. Branch metFORMIN 2023-0 Yes [id number] 1000mg Take 1 [facility] 1,000 mg 2-01 tablet by ity of tablet 00:00: mouth in [place] the Medical morning Branch and 1 tablet in the evening. Take with meals. pioglitazon 2023-0 Yes [id number] 30mg Take 1 [facility] e 30 mg 2-01 tablet by ity of tablet 00:00: mouth in [place] the morning. Branch metFORMIN 3-0 Yes [id number] 1000mg Take 1 [facility] 1,000 mg 2-01 tablet by ity of tablet 00:00: mouth in [place] the morning Branch and 1 tablet in the evening. Take with meals. pioglitazon 2023-0 Yes [id number] 30mg Take 1 [facility] e 30 mg 2-01 tablet by ity of tablet 00:00: mouth in [place] the morning. Branch metFORMIN 3-0 Yes [id number] 1000mg Take 1 [facility] 1,000 mg 2-01 tablet by ity of tablet 00:00: mouth in [place] [address] the morning Branch and 1 tablet in the evening. Take with meals. pioglitazon 3-0 Yes [id number] 30mg Take 1 [facility] e 30 mg 2-01 tablet by ity of tablet 00:00: mouth in [place] the morning. Branch metFORMIN 3-0 Yes [id number] 1000mg Take 1 [facility] 1,000 mg 2-01 tablet by ity of tablet 00:00: mouth in [place] [address] the [facility] morning Branch and 1 tablet in the evening. Take with meals. pioglitazon 2023-0 Yes [id number] 30mg Take 1 [facility] e 30 mg 2-01 tablet by ity of tablet 00:00: mouth in [place] the morning. Branch metFORMIN 3-0 Yes [id number] 1000mg Take 1 [facility]000 mg 2-01 tablet by [facility] of tablet 00:00: mouth in [place] [address] the [facility] morning Branch and 1 tablet in the evening. Take with meals. pioglitazon 2023-0 Yes [id number] 30mg Take 1 [facility] 30 mg 2-01 tablet by [facility] of tablet 00:00: mouth in [place] the morning. Branch metFORMIN 3-0 Yes [id number] 1000mg Take 1 [facility] 1,000 mg 2-01 tablet by [facility] of tablet 00:00: mouth in [place] [address] the [facility] morning Branch and 1 tablet in the evening. Take with meals. pioglitazon 2023-0 Yes [id number] 30mg Take 1 [facility] 30 mg 2-01 tablet by [facility] of tablet 00:00: mouth in [place] the morning. Branch metFORMIN 3-0 Yes [id number] 1000mg Take 1 [facility] 1,000 mg 2-01 tablet by [facility] of tablet 00:00: mouth in [place] the morning Branch and 1 tablet in the evening. Take with meals. pioglitazon 2023-0 Yes [id number] 30mg Take 1 [facility] 30 mg 2-01 tablet by [facility] of tablet 00:00: mouth in [place] the morning. Branch metFORMIN 3-0 Yes [id number] 1000mg Take 1 [facility] 1,000 mg 2-01 tablet by [facility] of tablet 00:00: mouth in [place] the morning Branch and 1 tablet in the evening. Take with meals. pioglitazon 3-0 Yes [id number] 30mg Take 1 [facility] 30 mg 2-01 tablet by [facility] of tablet 00:00: mouth in [place] the morning. Branch metFORMIN 3-0 Yes [id number] 1000mg Take 1 [facility] 1,000 mg 2-01 tablet by [facility] of tablet 00:00: mouth in [place] the morning Branch and 1 tablet in the evening. Take with meals. pioglitazon 3-0 Yes [id number] 30mg Take 1 [facility] 30 mg 2-01 tablet by [facility] of tablet 00:00: mouth in [place] the morning. Branch metFORMIN 3-0 Yes [id number] 1000mg Take 1 [facility] 1,000 mg 2-01 tablet by [facility] of tablet 00:00: mouth in [place] the morning Branch and 1 tablet in the evening. Take with meals. pioglitazon 2023-0 Yes [id number] 30mg Take 1 [facility] 30 mg 2-01 tablet by [facility] of tablet 00:00: mouth in [place] the morning. Branch metFORMIN 3-0 Yes [id number] 1000mg Take 1 [facility] 1,000 mg 2-01 tablet by [facility] of tablet 00:00: mouth in [place] [address] the Medical morning Branch and 1 tablet in the evening. Take with meals. pioglitazon 2023-0 Yes [id number] 30mg Take 1 [facility] 30 mg 2-01 tablet by [facility] of tablet 00:00: mouth in [place] the morning. Branch metFORMIN 2023-0 Yes [id number] 1000mg Take 1 [facility] 1,000 mg 2-01 tablet by [facility] of tablet 00:00: mouth in [place] the morning Branch and 1 tablet in the evening. Take with meals. pioglitazon 2023-0 Yes [id number] 30mg Take 1 [facility] 30 mg 2-01 tablet by [facility] of tablet 00:00: mouth in [place] the morning. Branch metFORMIN 2023-0 Yes [id number] 1000mg Take 1 [facility] 1,000 mg 2-01 tablet by [facility] of tablet 00:00: mouth in [place] the morning Branch and 1 tablet in the evening. Take with meals. pioglitazon 3-0 Yes [id number] 30mg Take 1 [facility] 30 mg 2-01 tablet by [facility] of tablet 00:00: mouth in [place] the morning. Branch metFORMIN 3-0 Yes [id number] 1000mg Take 1 [facility] 1,000 mg 2-01 tablet by [facility] of tablet 00:00: mouth in [place] the Branch and 1 tablet in the evening. Take with meals. pioglitazon 3-0 Yes [id number] 30mg Take 1 [facility] 30 mg 2-01 tablet by [facility] of tablet 00:00: mouth in [place] the morning. Branch metFORMIN 3-0 Yes [id number] 1000mg Take 1 [facility] 1,000 mg 2-01 tablet by [facility] of tablet 00:00: mouth in [place] the Branch and 1 tablet in the evening. Take with meals. pioglitazon 2023-0 Yes [id number] 30mg Take 1 [facility] 30 mg 2-01 tablet by [facility] of tablet 00:00: mouth in [place] the morning. Branch metFORMIN 2023-0 Yes [id number] 1000mg Take 1 [facility] 1,000 mg 2-01 tablet by [facility] of tablet 00:00: mouth in [place] the morning Branch and 1 tablet in the evening. Take with meals. pioglitazon 2023-0 Yes [id number] 30mg Take 1 [facility] 30 mg 2-01 tablet by [facility] of tablet 00:00: mouth in [place] the morning. Branch metFORMIN 2023-0 Yes [id number] 1000mg Take 1 [facility] 1,000 mg 2-01 tablet by [facility] of tablet 00:00: mouth in [place] the morning Branch and 1 tablet in the evening. Take with meals. pioglitazon 2023-0 Yes [id number] 30mg Take 1 [facility] 30 mg 2-01 tablet by [facility] of tablet 00:00: mouth in [place] the morning. Branch metFORMIN 3-0 Yes [id number] 1000mg Take 1 [facility] 1,000 mg 2-01 tablet by [facility] of tablet 00:00: mouth in [place] the morning Branch and 1 tablet in the evening. Take with meals. pioglitazon 3-0 Yes [id number] 30mg Take 1 [facility] 30 mg 2-01 tablet by [facility] of tablet 00:00: mouth in [place] the morning. Branch metFORMIN 3-0 Yes [id number] 1000mg Take 1 [facility] 1,000 mg 2-01 tablet by [facility] of tablet 00:00: mouth in [place] the morning Branch and 1 tablet in the evening. Take with meals. pioglitazon 3-0 Yes [id number] 30mg Take 1 [facility] 30 mg 2-01 tablet by [facility] of tablet 00:00: mouth in [place] the morning. Branch metFORMIN 3-0 Yes [id number] 1000mg Take 1 [facility] 1,000 mg 2-01 tablet by [facility] of tablet 00:00: mouth in [place] the Branch and 1 tablet in the evening. Take with meals. pioglitazon 3-0 Yes [id number] 30mg Take 1 [facility] 30 mg 2-01 tablet by [facility] of tablet 00:00: mouth in [place] the morning. Branch metFORMIN 3-0 Yes [id number] 1000mg Take 1 [facility] 1,000 mg 2-01 tablet by [facility] of tablet 00:00: mouth in [place] the morning Branch and 1 tablet in the evening. Take with meals. pioglitazon 2023-0 Yes [id number] 30mg Take 1 [facility] 30 mg 2-01 tablet by [facility] of tablet 00:00: mouth in [place] the morning. Branch metFORMIN 3-0 Yes [id number] 1000mg Take 1 [facility] 1,000 mg 2-01 tablet by [facility] of tablet 00:00: mouth in [place] [address] the [facility] morning Branch and 1 tablet in the evening. Take with meals. pioglitazon 2023-0 Yes [id number] 30mg Take 1 [facility] 30 mg 2-01 tablet by [facility] of tablet 00:00: mouth in [place] the morning. Branch metFORMIN 2023-0 Yes [id number] 1000mg Take 1 [facility] 1,000 mg 2-01 tablet by [facility] of tablet 00:00: mouth in [place] [address] the morning Branch and 1 tablet in the evening. Take with meals. pioglitazon 2023-0 Yes [id number] 30mg Take 1 [facility] 30 mg 2-01 tablet by [facility] of tablet 00:00: mouth in [place] the morning. Branch metFORMIN 3-0 Yes [id number] 1000mg Take 1 [facility] 1,000 mg 2-01 tablet by [facility] of tablet 00:00: mouth in [place] [address] the [facility] morning Branch and 1 tablet in the evening. Take with meals. pioglitazon 2023-0 Yes [id number] 30mg Take 1 [facility] 30 mg 2-01 tablet by [facility] of tablet 00:00: mouth in [place] the . Branch metFORMIN 3-0 Yes [id number] 1000mg Take 1 [facility] 1,000 mg 2-01 tablet by [facility] of tablet 00:00: mouth in [place] [address] the Branch and 1 tablet in the evening. Take with meals. pioglitazon 3-0 Yes [id number] 30mg Take 1 [facility] 30 mg 2-01 tablet by [facility] of tablet 00:00: mouth in [place] the . Branch metFORMIN 3-0 Yes [id number] 1000mg Take 1 [facility] 1,000 mg 2-01 tablet by [facility] of tablet 00:00: mouth in [place] [address] the [facility] morning Branch and 1 tablet in the evening. Take with meals. pioglitazon 2023-0 Yes [id number] 30mg Take 1 [facility] 30 mg 2-01 tablet by [facility] of tablet 00:00: mouth in [place] [address] the morning. Branch metFORMIN 2023-0 Yes [id number] 1000mg Take 1 [facility] 1,000 mg 2-01 tablet by [facility] of tablet 00:00: mouth in [address] morning Branch and 1 tablet in the evening. Take with meals. pioglitazon 2023-0 Yes [id number] 30mg Take 1 [facility] 30 mg 2-01 tablet by [facility] of tablet 00:00: mouth in [place] the morning. Branch metFORMIN 3-0 Yes [id number] 1000mg Take 1 [facility] 1,000 mg 2-01 tablet by [facility] of tablet 00:00: mouth in [place] the morning Branch and 1 tablet in the evening. Take with meals. pioglitazon 2023-0 Yes [id number] 30mg Take 1 [facility] 30 mg 2-01 tablet by [facility] of tablet 00:00: mouth in [place] the morning. Branch metFORMIN 3-0 Yes [id number] 1000mg Take 1 [facility] 1,000 mg 2-01 tablet by [facility] of tablet 00:00: mouth in [place] the morning Branch and 1 tablet in the evening. Take with meals. pioglitazon 3-0 Yes [id number] 30mg Take 1 [facility] 30 mg 2-01 tablet by [facility] of tablet 00:00: mouth in [place] the morning. Branch metFORMIN 3-0 Yes [id number] 1000mg Take 1 [facility] 1,000 mg 2-01 tablet by [facility] of tablet 00:00: mouth in [place] the morning Branch and 1 tablet in the evening. Take with meals. pioglitazon 3-0 Yes [id number] 30mg Take 1 [facility] 30 mg 2-01 tablet by [facility] of tablet 00:00: mouth in [place] the morning. Branch metFORMIN 3-0 Yes [id number] 1000mg Take 1 [facility] 1,000 mg 2-01 tablet by [facility] of tablet 00:00: mouth in [place] [address] the morning Branch and 1 tablet in the evening. Take with meals. pioglitazon 3-0 Yes [id number] 30mg Take 1 [facility] e 30 mg 2-01 tablet by [facility] of tablet 00:00: mouth in [place] the morning. Branch metFORMIN 3-0 Yes [id number] 1000mg Take 1 [facility] 1,000 mg 2-01 tablet by [facility] of tablet 00:00: mouth in [place] [address] the morning Branch and 1 tablet in the evening. Take with meals. pioglitazon 2023-0 Yes [id number] 30mg Take 1 [facility] 30 mg 2-01 tablet by [facility] of tablet 00:00: mouth in [place] the morning. Branch metFORMIN 3-0 Yes [id number] 1000mg Take 1 [facility] 1,000 mg 2-01 tablet by [facility] of tablet 00:00: mouth in [place] the morning Branch and 1 tablet in the evening. Take with meals. pioglitazon 2023-0 Yes [id number] 30mg Take 1 [facility] e 30 mg 2-01 tablet by [facility] of tablet 00:00: mouth in [place] the morning. Branch metFORMIN 3-0 Yes [id number] 1000mg Take 1 [facility] 1,000 mg 2-01 tablet by [facility] of tablet 00:00: mouth in [place] the morning Branch and 1 tablet in the evening. Take with meals. pioglitazon 3-0 Yes [id number] 30mg Take 1 [facility] e 30 mg 2-01 tablet by [facility] of tablet 00:00: mouth in [place] the morning. Branch metFORMIN 3-0 Yes [id number] 1000mg Take 1 [facility] 1,000 mg 2-01 tablet by [facility] of tablet 00:00: mouth in [place] the Branch and 1 tablet in the evening. Take with meals. pioglitazon 3-0 Yes [id number] 30mg Take 1 [facility] e 30 mg 2-01 tablet by [facility] of tablet 00:00: mouth in [place] the morning. Branch metFORMIN 3-0 Yes [id number] 1000mg Take 1 [facility] 1,000 mg 2-01 tablet by [facility] of tablet 00:00: mouth in [place] the Branch and 1 tablet in the evening. Take with meals. pioglitazon 3-0 Yes [id number] 30mg Take 1 [facility] e 30 mg 2-01 tablet by [facility] of tablet 00:00: mouth in [place] the morning. Branch metFORMIN 3-0 Yes [id number] 1000mg Take 1 [facility] 1,000 mg 2-01 tablet by [facility] of tablet 00:00: mouth in [place] the morning Branch and 1 tablet in the evening. Take with meals. pioglitazon 2023-0 Yes [id number] 30mg Take 1 [facility] e 30 mg 2-01 tablet by [facility] of tablet 00:00: mouth in [place] the morning. Branch metFORMIN 3-0 Yes [id number] 1000mg Take 1 [facility] 1,000 mg 2-01 tablet by [facility] of tablet 00:00: mouth in [place] the Medical morning Branch and 1 tablet in the evening. Take with meals. pioglitazon 2023-0 Yes [id number] 30mg Take 1 [facility] e 30 mg 2-01 tablet by [facility] of tablet 00:00: mouth in [place] the Medical morning. Branch metFORMIN 2023-0 Yes [id number] 1000mg Take 1 [facility] 1,000 mg 2-01 tablet by [facility] of tablet 00:00: mouth in [place] the Medical morning Branch and 1 tablet in the evening. Take with meals. pioglitazon 2023-0 Yes [id number] 30mg Take 1 [facility] e 30 mg 2-01 tablet by [facility] of tablet 00:00: mouth in [place] the morning. Branch metFORMIN 3-0 Yes [id number] 1000mg Take 1 [facility] 1,000 mg 2-01 tablet by [facility] of tablet 00:00: mouth in [place] the Medical morning Branch and 1 tablet in the evening. Take with meals. pioglitazon 3-0 Yes [id number] 30mg Take 1 [facility] e 30 mg 2-01 tablet by [facility] of tablet 00:00: mouth in [place] the morning. Branch metFORMIN 3-0 Yes [id number] 1000mg Take 1 [facility] 1,000 mg 2-01 tablet by ity of tablet 00:00: mouth in [place] [address] the [facility] morning Branch and 1 tablet in the evening. Take with meals. pioglitazon 2023-0 Yes [id number] 30mg Take 1 [facility] e 30 mg 2-01 tablet by [facility] of tablet 00:00: mouth in [place] the Medical morning. Branch metFORMIN 3-0 Yes [id number] 1000mg Take 1 [facility] 1,000 mg 2-01 tablet by [facility] of tablet 00:00: mouth in [place] [address] the Medical morning Branch and 1 tablet in the evening. Take with meals. pioglitazon 2023-0 Yes [id number] 30mg Take 1 [facility] e 30 mg 2-01 tablet by [facility] of tablet 00:00: mouth in [place] [address] the Medical morning. Branch metFORMIN 2023-0 Yes [id number] 1000mg Take 1 [facility] 1,000 mg 2-01 tablet by ity of tablet 00:00: mouth in [place] [address] the [facility] morning Branch and 1 tablet in the evening. Take with meals. pioglitazon 2023-0 Yes [id number] 30mg Take 1 [facility] e 30 mg 2-01 tablet by [facility] of tablet 00:00: mouth in [place] the morning. Branch metFORMIN 3-0 Yes [id number] 1000mg Take 1 [facility] 1,000 mg 2-01 tablet by [facility] of tablet 00:00: mouth in [place] the morning Branch and 1 tablet in the evening. Take with meals. pioglitazon 2023-0 Yes [id number] 30mg Take 1 [facility] e 30 mg 2-01 tablet by [facility] of tablet 00:00: mouth in [place] the morning. Branch metFORMIN 3-0 Yes [id number] 1000mg Take 1 [facility] 1,000 mg 2-01 tablet by [facility] of tablet 00:00: mouth in [place] [address] the morning Branch and 1 tablet in the evening. Take with meals. pioglitazon 3-0 Yes [id number] 30mg Take 1 [facility] e 30 mg 2-01 tablet by [facility] of tablet 00:00: mouth in [place] the . Branch metFORMIN 3-0 Yes [id number] 1000mg Take 1 [facility] 1,000 mg 2-01 tablet by [facility] of tablet 00:00: mouth in [place] [address] the Branch and 1 tablet in the evening. Take with meals. pioglitazon 3-0 Yes [id number] 30mg Take 1 [facility] e 30 mg 2-01 tablet by [facility] of tablet 00:00: mouth in [place] the . Branch metFORMIN 3-0 Yes [id number] 1000mg Take 1 [facility] 1,000 mg 2-01 tablet by [facility] of tablet 00:00: mouth in [address] [place] and 1 tablet in the evening. Take with meals. pioglitazon 2023-0 Yes [id number] 30mg Take 1 [facility] e 30 mg 2-01 tablet by [facility] of tablet 00:00: mouth in [place] [address] the morning. Branch metFORMIN 2023-0 Yes [id number] 1000mg Take 1 [facility] 1,000 mg 2-01 tablet by it[facility] of tablet 00:00: mouth in [address] morning Branch and 1 tablet in the evening. Take with meals. pioglitazon 2023-0 Yes [id number] 30mg Take 1 [facility] e 30 mg 2-01 tablet by [facility] of tablet 00:00: mouth in [place] the morning. Branch metFORMIN 3-0 Yes [id number] 1000mg Take 1 [facility] 1,000 mg 2-01 tablet by [facility] of tablet 00:00: mouth in [place] the morning Branch and 1 tablet in the evening. Take with meals. pioglitazon 3-0 Yes [id number] 30mg Take 1 [facility] e 30 mg 2-01 tablet by [facility] of tablet 00:00: mouth in [place] the morning. Branch metFORMIN 3-0 Yes [id number] 1000mg Take 1 [facility] 1,000 mg 2-01 tablet by [facility] of tablet 00:00: mouth in [place] the morning Branch and 1 tablet in the evening. Take with meals. pioglitazon 2022-0 Yes [id number] 30mg Take 1 [facility] e 30 mg 2-01 tablet by [facility] of tablet 00:00: mouth in [place] the morning. Branch metFORMIN 3-0 Yes [id number] 1000mg Take 1 [facility] 1,000 mg 2-01 tablet by [facility] of tablet 00:00: mouth in [place] the morning Branch and 1 tablet in the evening. Take with meals. pioglitazon 3-0 Yes [id number] 30mg Take 1 [facility] e 30 mg 2-01 tablet by [facility] of tablet 00:00: mouth in [place] the morning. Branch metFORMIN 3-0 Yes [id number] 1000mg Take 1 [facility] 1,000 mg 2-01 tablet by [facility] of tablet 00:00: mouth in [place] the morning Branch and 1 tablet in the evening. Take with meals. pioglitazon 3-0 Yes [id number] 30mg Take 1 [facility] e 30 mg 2-01 tablet by [facility] of tablet 00:00: mouth in [place] the morning. Branch metFORMIN 3-0 Yes [id number] 1000mg Take 1 [facility] 1,000 mg 2-01 tablet by [facility] of tablet 00:00: mouth in [place] [address] the morning Branch and 1 tablet in the evening. Take with meals. pioglitazon 3-0 Yes [id number] 30mg Take 1 [facility] e 30 mg 2-01 tablet by [facility] of tablet 00:00: mouth in [place] [address] the morning. Branch metFORMIN 2023-0 Yes [id number] 1000mg Take 1 [facility] 1,000 mg 2-01 tablet by [facility] of tablet 00:00: mouth in [place] the morning Branch and 1 tablet in the evening. Take with meals. pioglitazon 2023-0 Yes [id number] 30mg Take 1 [facility] e 30 mg 2-01 tablet by [facility] of tablet 00:00: mouth in [place] the morning. Branch metFORMIN 2023-0 Yes [id number] 1000mg Take 1 [facility] 1,000 mg 2-01 tablet by [facility] of tablet 00:00: mouth in [place] the morning Branch and 1 tablet in the evening. Take with meals. pioglitazon 3-0 Yes [id number] 30mg Take 1 [facility] e 30 mg 2-01 tablet by [facility] of tablet 00:00: mouth in [place] the morning. Branch metFORMIN 3-0 Yes [id number] 1000mg Take 1 [facility] 1,000 mg 2-01 tablet by [facility] of tablet 00:00: mouth in [place] the Branch and 1 tablet in the evening. Take with meals. pioglitazon 3-0 Yes [id number] 30mg Take 1 [facility] e 30 mg 2-01 tablet by [facility] of tablet 00:00: mouth in [place] the morning. Branch metFORMIN 3-0 Yes [id number] 1000mg Take 1 [facility] 1,000 mg 2-01 tablet by [facility] of tablet 00:00: mouth in [place] the Branch and 1 tablet in the evening. Take with meals. pioglitazon 2023-0 Yes [id number] 30mg Take 1 [facility] e 30 mg 2-01 tablet by [facility] of tablet 00:00: mouth in [place] the morning. Branch metFORMIN 2023-0 Yes [id number] 1000mg Take 1 [facility] 1,000 mg 2-01 tablet by [facility] of tablet 00:00: mouth in [place] the morning Branch and 1 tablet in the evening. Take with meals. pioglitazon 2023-0 Yes [id number] 30mg Take 1 [facility] e 30 mg 2-01 tablet by [facility] of tablet 00:00: mouth in [place] the morning. Branch metFORMIN 2023-0 Yes [id number] 1000mg Take 1 [facility] 1,000 mg 2-01 tablet by [facility] of tablet 00:00: mouth in [place] the Medical morning Branch and 1 tablet in the evening. Take with meals. pioglitazon 2023-0 Yes [id number] 30mg Take 1 [facility] e 30 mg 2-01 tablet by [facility] of tablet 00:00: mouth in [place] the Medical morning. Branch metFORMIN 2023-0 Yes [id number] 1000mg Take 1 [facility] 1,000 mg 2-01 tablet by [facility] of tablet 00:00: mouth in [place] the Medical morning Branch and 1 tablet in the evening. Take with meals. pioglitazon 2023-0 Yes [id number] 30mg Take 1 [facility] e 30 mg 2-01 tablet by [facility] of tablet 00:00: mouth in [place] the morning. Branch metFORMIN 3-0 Yes [id number] 1000mg Take 1 [facility] 1,000 mg 2-01 tablet by [facility] of tablet 00:00: mouth in [place] the Medical morning Branch and 1 tablet in the evening. Take with meals. pioglitazon 2023-0 Yes [id number] 30mg Take 1 [facility] e 30 mg 2-01 tablet by [facility] of tablet 00:00: mouth in [place] the morning. Branch metFORMIN 3-0 Yes [id number] 1000mg Take 1 [facility] 1,000 mg 2-01 tablet by [facility] of tablet 00:00: mouth in [place] the Medical morning Branch and 1 tablet in the evening. Take with meals. pioglitazon 2023-0 Yes [id number] 30mg Take 1 [facility] e 30 mg 2-01 tablet by [facility] of tablet 00:00: mouth in [place] the morning. Branch metFORMIN 2023-0 Yes [id number] 1000mg Take 1 [facility] 1,000 mg 2-01 tablet by [facility] of tablet 00:00: mouth in [place] the Medical morning Branch and 1 tablet in the evening. Take with meals. pioglitazon 2023-0 Yes [id number] 30mg Take 1 [facility] e 30 mg 2-01 tablet by [facility] of tablet 00:00: mouth in [place] the morning. Branch metFORMIN 2023-0 Yes [id number] 1000mg Take 1 [facility] 1,000 mg 2-01 tablet by [facility] of tablet 00:00: mouth in [place] the Medical morning Branch and 1 tablet in the evening. Take with meals. pioglitazon 2023-0 Yes [id number] 30mg Take 1 [facility] e 30 mg 2-01 tablet by [facility] of tablet 00:00: mouth in [place] the morning. Branch metFORMIN 2023-0 Yes [id number] 1000mg Take 1 [facility] 1,000 mg 2-01 tablet by [facility] of tablet 00:00: mouth in [place] the morning Branch and 1 tablet in the evening. Take with meals. pioglitazon 2023-0 Yes [id number] 30mg Take 1 [facility] e 30 mg 2-01 tablet by [facility] of tablet 00:00: mouth in [place] the morning. Branch metFORMIN 3-0 Yes [id number] 1000mg Take 1 [facility] 1,000 mg 2-01 tablet by [facility] of tablet 00:00: mouth in [place] the morning Branch and 1 tablet in the evening. Take with meals. pioglitazon 2023-0 Yes [id number] 30mg Take 1 [facility] e 30 mg 2-01 tablet by [facility] of tablet 00:00: mouth in [place] the morning. Branch metFORMIN 3-0 Yes [id number] 1000mg Take 1 [facility] 1,000 mg 2-01 tablet by [facility] of tablet 00:00: mouth in [place] the morning Branch and 1 tablet in the evening. Take with meals. pioglitazon 2023-0 Yes [id number] 30mg Take 1 [facility] e 30 mg 2-01 tablet by [facility] of tablet 00:00: mouth in [place] the morning. Branch metFORMIN 2023-0 Yes [id number] 1000mg Take 1 [facility] 1,000 mg 2-01 tablet by ity of tablet 00:00: mouth in [place] the [facility] morning Branch and 1 tablet in the evening. Take with meals. pioglitazon 2023-0 Yes [id number] 30mg Take 1 [facility] e 30 mg 2-01 tablet by [facility] of tablet 00:00: mouth in [place] the morning. Branch metFORMIN 2023-0 Yes [id number] 1000mg Take 1 [facility] 1,000 mg 2-01 tablet by [facility]y of tablet 00:00: mouth in [place] [address] the morning Branch and 1 tablet in the evening. Take with meals. pioglitazon 2023-0 Yes [id number] 30mg Take 1 [facility] e 30 mg 2-01 tablet by [facility] of tablet 00:00: mouth in [place] the morning. Branch metFORMIN 3-0 Yes [id number] 1000mg Take 1 [facility] 1,000 mg 2-01 tablet by [facility] of tablet 00:00: mouth in [place] the morning Branch and 1 tablet in the evening. Take with meals. pioglitazon 2023-0 Yes [id number] 30mg Take 1 [facility] e 30 mg 2-01 tablet by [facility] of tablet 00:00: mouth in [place] the morning. Branch metFORMIN 3-0 Yes [id number] 1000mg Take 1 [facility] 1,000 mg 2-01 tablet by [facility] of tablet 00:00: mouth in [place] the morning Branch and 1 tablet in the evening. Take with meals. pioglitazon 3-0 Yes [id number] 30mg Take 1 [facility] e 30 mg 2-01 tablet by [facility] of tablet 00:00: mouth in [place] the morning. Branch metFORMIN 3-0 Yes [id number] 1000mg Take 1 [facility] 1,000 mg 2-01 tablet by [facility] of tablet 00:00: mouth in [place] the Branch and 1 tablet in the evening. Take with meals. pioglitazon 3-0 Yes [id number] 30mg Take 1 [facility] e 30 mg 2-01 tablet by [facility] of tablet 00:00: mouth in [place] the morning. Branch metFORMIN 3-0 Yes [id number] 1000mg Take 1 [facility] 1,000 mg 2-01 tablet by [facility] of tablet 00:00: mouth in [place] the Branch and 1 tablet in the evening. Take with meals. pioglitazon 3-0 Yes [id number] 30mg Take 1 [facility] e 30 mg 2-01 tablet by [facility] of tablet 00:00: mouth in [place] the morning. Branch metFORMIN 3-0 Yes [id number] 1000mg Take 1 [facility] 1,000 mg 2-01 tablet by [facility]y of tablet 00:00: mouth in [place] [address] the morning Branch and 1 tablet in the evening. Take with meals. pioglitazon 2023-0 Yes [id number] 30mg Take 1 [facility] e 30 mg 2-01 tablet by [facility] of tablet 00:00: mouth in [place] the morning. Branch metFORMIN 3-0 Yes [id number] 1000mg Take 1 [facility] 1,000 mg 2-01 tablet by [facility] of tablet 00:00: mouth in [place] the morning Branch and 1 tablet in the evening. Take with meals. pioglitazon 2023-0 Yes [id number] 30mg Take 1 [facility] e 30 mg 2-01 tablet by [facility] of tablet 00:00: mouth in [place] the morning. Branch metFORMIN 2023-0 Yes [id number] 1000mg Take 1 [facility] 1,000 mg 2-01 tablet by [facility] of tablet 00:00: mouth in [place] the morning Branch and 1 tablet in the evening. Take with meals. pioglitazon 2023-0 Yes [id number] 30mg Take 1 [facility] e 30 mg 2-01 tablet by [facility] of tablet 00:00: mouth in [place] the morning. Branch metFORMIN 3-0 Yes [id number] 1000mg Take 1 [facility] 1,000 mg 2-01 tablet by [facility] of tablet 00:00: mouth in [place] the Branch and 1 tablet in the evening. Take with meals. pioglitazon 3-0 Yes [id number] 30mg Take 1 [facility] e 30 mg 2-01 tablet by [facility] of tablet 00:00: mouth in [place] the morning. Branch metFORMIN 3-0 Yes [id number] 1000mg Take 1 [facility] 1,000 mg 2-01 tablet by [facility]y of tablet 00:00: mouth in [place] the Branch and 1 tablet in the evening. Take with meals. pioglitazon 2023-0 Yes [id number] 30mg Take 1 [facility] e 30 mg 2-01 tablet by [facility] of tablet 00:00: mouth in [place] the morning. Branch metFORMIN 2023-0 Yes [id number] 1000mg Take 1 [facility] 1,000 mg 2-01 tablet by [facility]y of tablet 00:00: mouth in [place] [address] the morning Branch and 1 tablet in the evening. Take with meals. pioglitazon 2023-0 Yes [id number] 30mg Take 1 [facility] 30 mg 2-01 tablet by [facility] of tablet 00:00: mouth in [place] the morning. Branch metFORMIN 2023-0 Yes [id number] 1000mg Take 1 [facility] 1,000 mg 2-01 tablet by ity of tablet 00:00: mouth in [place] the Medical morning Branch and 1 tablet in the evening. Take with meals. pioglitazon 2023-0 Yes [id number] 30mg Take 1 [facility] e 30 mg 2-01 tablet by ity of tablet 00:00: mouth in [place] the morning. Branch metFORMIN 3-0 Yes [id number] 1000mg Take 1 [facility] 1,000 mg 2-01 tablet by ity of tablet 00:00: mouth in [place] the morning Branch and 1 tablet in the evening. Take with meals. pioglitazon 2023-0 Yes [id number] 30mg Take 1 [facility] e 30 mg 2-01 tablet by ity of tablet 00:00: mouth in [place] the morning. Branch metFORMIN 3-0 Yes [id number] 1000mg Take 1 [facility] 1,000 mg 2-01 tablet by ity of tablet 00:00: mouth in [place] the morning Branch and 1 tablet in the evening. Take with meals. pioglitazon 2023-0 Yes [id number] 30mg Take 1 [facility] e 30 mg 2-01 tablet by ity of tablet 00:00: mouth in [place] the morning. Branch metFORMIN 3-0 Yes [id number] 1000mg Take 1 [facility] 1,000 mg 2-01 tablet by ity of tablet 00:00: mouth in [place] the morning Branch and 1 tablet in the evening. Take with meals. pioglitazon 2023-0 Yes [id number] 30mg Take 1 [facility] e 30 mg 2-01 tablet by ity of tablet 00:00: mouth in [place] the morning. Branch metFORMIN 3-0 Yes [id number] 1000mg Take 1 [facility] 1,000 mg 2-01 tablet by ity of tablet 00:00: mouth in [place] [address] the Medical morning Branch and 1 tablet in the evening. Take with meals. pioglitazon 2023-0 Yes [id number] 30mg Take 1 [facility] e 30 mg 2-01 tablet by ity of tablet 00:00: mouth in [place] the morning. Branch metFORMIN 3-0 Yes [id number] 1000mg Take 1 [facility] 1,000 mg 2-01 tablet by ity of tablet 00:00: mouth in [place] [address] the Medical morning Branch and 1 tablet in the evening. Take with meals. pioglitazon 2023-0 Yes [id number] 30mg Take 1 [facility] e 30 mg 2-01 tablet by ity of tablet 00:00: mouth in [place] the morning. Branch metFORMIN 3-0 Yes [id number] 1000mg Take 1 [facility] 1,000 mg 2-01 tablet by ity of tablet 00:00: mouth in [place] the morning Branch and 1 tablet in the evening. Take with meals. pioglitazon 2023-0 Yes [id number] 30mg Take 1 [facility] 30 mg 2-01 tablet by ity of tablet 00:00: mouth in [place] the morning. Branch metFORMIN 3-0 Yes [id number] 1000mg Take 1 [facility] 1,000 mg 2-01 tablet by ity of tablet 00:00: mouth in [place] the morning Branch and 1 tablet in the evening. Take with meals. pioglitazon 3-0 Yes [id number] 30mg Take 1 [facility] 30 mg 2-01 tablet by ity of tablet 00:00: mouth in [place] the morning. Branch metFORMIN 3-0 Yes [id number] 1000mg Take 1 [facility] 1,000 mg 2-01 tablet by ity of tablet 00:00: mouth in [place] the morning Branch and 1 tablet in the evening. Take with meals. pioglitazon 3-0 Yes [id number] 30mg Take 1 [facility] 30 mg 2-01 tablet by ity of tablet 00:00: mouth in [place] the morning. Branch metFORMIN 3-0 Yes [id number] 1000mg Take 1 [facility] 1,000 mg 2-01 tablet by ity of tablet 00:00: mouth in [place] [address] the [facility] morning Branch and 1 tablet in the evening. Take with meals. pioglitazon 2023-0 Yes [id number] 30mg Take 1 [facility] e 30 mg 2-01 tablet by ity of tablet 00:00: mouth in [place] the morning. Branch metFORMIN 2023-0 Yes [id number] 1000mg Take 1 [facility] 1,000 mg 2-01 tablet by ity of tablet 00:00: mouth in [address] morning Branch and 1 tablet in the evening. Take with meals. pioglitazon 2023-0 Yes [id number] 30mg Take 1 [facility] 30 mg 2-01 tablet by ity of tablet 00:00: mouth in [place] the morning. Branch metFORMIN 3-0 Yes [id number] 1000mg Take 1 [facility] 1,000 mg 2-01 tablet by ity of tablet 00:00: mouth in [place] the morning Branch and 1 tablet in the evening. Take with meals. pioglitazon 3-0 Yes [id number] 30mg Take 1 [facility] 30 mg 2-01 tablet by ity of tablet 00:00: mouth in [place] the morning. Branch metFORMIN 3-0 Yes [id number] 1000mg Take 1 [facility] 1,000 mg 2-01 tablet by ity of tablet 00:00: mouth in [place] the morning Branch and 1 tablet in the evening. Take with meals. pioglitazon 3-0 Yes [id number] 30mg Take 1 [facility] 30 mg 2-01 tablet by ity of tablet 00:00: mouth in [place] the morning. Branch metFORMIN 2022-0 Yes [id number] 1000mg Take 1 [facility] 1,000 mg 2-01 tablet by ity of tablet 00:00: mouth in [place] the Branch and 1 tablet in the evening. Take with meals. pioglitazon 3-0 Yes [id number] 30mg Take 1 [facility] e 30 mg 2-01 tablet by ity of tablet 00:00: mouth in [place] the morning. Branch metFORMIN 2022-0 Yes [id number] 1000mg Take 1 [facility] 1,000 mg 2-01 tablet by ity of tablet 00:00: mouth in [place] the Branch and 1 tablet in the evening. Take with meals. pioglitazon 3-0 Yes [id number] 30mg Take 1 [facility] e 30 mg 2-01 tablet by ity of tablet 00:00: mouth in [place] the morning. Branch metFORMIN 3-0 Yes [id number] 1000mg Take 1 [facility] 1,000 mg 2-01 tablet by ity of tablet 00:00: mouth in [place] [address] the morning Branch and 1 tablet in the evening. Take with meals. pioglitazon 2023-0 Yes [id number] 30mg Take 1 [facility] e 30 mg 2-01 tablet by ity of tablet 00:00: mouth in [place] the morning. Branch metFORMIN 2023-0 Yes [id number] 1000mg Take 1 [facility] 1,000 mg 2-01 tablet by ity of tablet 00:00: mouth in [place] the morning Branch and 1 tablet in the evening. Take with meals. pioglitazon 2023-0 Yes [id number] 30mg Take 1 [facility] e 30 mg 2-01 tablet by ity of tablet 00:00: mouth in [place] the morning. Branch metFORMIN 2023-0 Yes [id number] 1000mg Take 1 [facility] 1,000 mg 2-01 tablet by ity of tablet 00:00: mouth in [place] the morning Branch and 1 tablet in the evening. Take with meals. pioglitazon 2023-0 Yes [id number] 30mg Take 1 [facility] e 30 mg 2-01 tablet by ity of tablet 00:00: mouth in [place] the morning. Branch metFORMIN 3-0 Yes [id number] 1000mg Take 1 [facility] 1,000 mg 2-01 tablet by ity of tablet 00:00: mouth in [place] the Branch and 1 tablet in the evening. Take with meals. pioglitazon 3-0 Yes [id number] 30mg Take 1 [facility] e 30 mg 2-01 tablet by ity of tablet 00:00: mouth in [place] the morning. Branch metFORMIN 3-0 Yes [id number] 1000mg Take 1 [facility] 1,000 mg 2-01 tablet by ity of tablet 00:00: mouth in [place] the Branch and 1 tablet in the evening. Take with meals. pioglitazon 2023-0 Yes [id number] 30mg Take 1 [facility] e 30 mg 2-01 tablet by ity of tablet 00:00: mouth in [place] the morning. Branch metFORMIN 3-0 Yes [id number] 1000mg Take 1 [facility] 1,000 mg 2-01 tablet by ity of tablet 00:00: mouth in [place] [address] the morning Branch and 1 tablet in the evening. Take with meals. pioglitazon 2023-0 Yes [id number] 30mg Take 1 [facility] e 30 mg 2-01 tablet by ity of tablet 00:00: mouth in [place] the morning. Branch metFORMIN 2023-0 Yes [id number] 1000mg Take 1 [facility] 1,000 mg 2-01 tablet by ity of tablet 00:00: mouth in [place] the Medical morning Branch and 1 tablet in the evening. Take with meals. pioglitazon 2023-0 Yes [id number] 30mg Take 1 [facility] e 30 mg 2-01 tablet by ity of tablet 00:00: mouth in [place] the morning. Branch metFORMIN 3-0 Yes [id number] 1000mg Take 1 [facility] 1,000 mg 2-01 tablet by ity of tablet 00:00: mouth in [place] the morning Branch and 1 tablet in the evening. Take with meals. pioglitazon 2023-0 Yes [id number] 30mg Take 1 [facility] e 30 mg 2-01 tablet by ity of tablet 00:00: mouth in [place] the morning. Branch metFORMIN 3-0 Yes [id number] 1000mg Take 1 [facility] 1,000 mg 2-01 tablet by ity of tablet 00:00: mouth in [place] [address] the morning Branch and 1 tablet in the evening. Take with meals. pioglitazon 3-0 Yes [id number] 30mg Take 1 [facility] e 30 mg 2-01 tablet by ity of tablet 00:00: mouth in [place] the morning. Branch metFORMIN 3-0 Yes [id number] 1000mg Take 1 [facility] 1,000 mg 2-01 tablet by ity of tablet 00:00: mouth in [place] [address] the [facility] morning Branch and 1 tablet in the evening. Take with meals. pioglitazon 2023-0 Yes [id number] 30mg Take 1 [facility] e 30 mg 2-01 tablet by ity of tablet 00:00: mouth in [place] the morning. Branch metFORMIN 3-0 Yes [id number] 1000mg Take 1 [facility] 1,000 mg 2-01 tablet by ity of tablet 00:00: mouth in [place] [address] the [facility] morning Branch and 1 tablet in the evening. Take with meals. pioglitazon 2023-0 Yes [id number] 30mg Take 1 [facility] e 30 mg 2-01 tablet by ity of tablet 00:00: mouth in [place] the morning. Branch metFORMIN 3-0 Yes [id number] 1000mg Take 1 [facility] 1,000 mg 2-01 tablet by ity of tablet 00:00: mouth in [place] [address] the [facility] morning Branch and 1 tablet in the evening. Take with meals. pioglitazon 2022-0 Yes [id number] 30mg Take 1 [facility] e 30 mg 2-01 tablet by ity of tablet 00:00: mouth in [place] 00 the Medical morning. Branch metFORMIN 2022-0 Yes [id number] 1000mg Take 1 [facility] 1,000 mg 2-01 tablet by ity of tablet 00:00: mouth in [place] 00 the Medical morning Branch and 1 tablet in the evening. Take with meals. pioglitazon 2022-2022- No [id number] 30mg Take 1 [facility] e 30 mg 2-01 10-30 tablet by ity of tablet 00:00: 00:00 mouth in [place] 00 :00 the Medical morning. Branch metFORMIN 2022-2022- No [id number] 1000mg Take 1 [facility] 1,000 mg 2-01 10-30 tablet by ity o f tablet 00:00: 00:00 mouth in [place] 00 :00 the Medical morning Branch and 1 tablet in the evening. Take with meals. pioglitazon 2022-2022- No [id number] 30mg Take 1 [facility] e 30 mg 2-01 10-30 tablet by ity of tablet 00:00: 00:00 mouth in [place] 00 :00 the Medical morning. Branch metFORMIN 2022-2022- No [id number] 1000mg Take 1 [facility] 1,000 mg 2-01 10-30 tablet by ity o f tablet 00:00: 00:00 mouth in [place] 00 :00 the Medical morning Branch and 1 tablet in the evening. Take with meals. semaglutide 2022- No [id number] 1mg inject 1 [facility] (OZEMPIC) 1 2-01 03-16 mg under ity of mg/dose (4 00:00: 00:00 the skin [place] mg/3 mL) 00 :00 weekly. [facility] Branch semaglutide 2022- No [id number] 1mg inject 1 Univers (OZEMPIC) 1 2-01 03-16 mg under ity of mg/dose (4 00:00: 00:00 the skin [place] mg/3 mL) 00 :00 weekly. [facility] semaglutide 2022- No [id number] 1mg inject 1 [facility] (OZEMPIC) 1 2-01 03-16 mg under ity of mg/dose (4 00:00: 00:00 the skin [place] mg/3 mL) 00 :00 weekly. [facility] semaglutide 2022- No [id number] 1mg inject 1 [facility] (OZEMPIC) 1 09-13 03-16 mg under ity of mg/dose (4 00:00: 00:00 the skin [place] mg/3 mL) 00 :00 weekly. [facility] semaglutide 2022- No [id number] 1mg inject 1 [facility] (OZEMPIC) 1 09-13 03-16 mg under ity of mg/dose (4 00:00: 00:00 the skin [place] mg/3 mL) 00 :00 weekly. [facility] pioglitazon No [id number] 30mg Take 1 [facility] e 30 mg 09-13 tablet by ity of tablet 00:00: 00:00 mouth in [place] 00 :00 the Medical morning. [place] tirzepatide 2022- No [id number] 2.5mg inject 2.5 Univers (MOUNJARO) 09-13 mg under ity of 2.5 mg/0.5 00:00: 00:00 the skin [place] mL PnIj 00 :00 weekly. [facility] pioglitazon No [id number] 30mg Take 1 [facility] e 30 mg 09-13 tablet by ity of tablet 00:00: 00:00 mouth in [place] 00 :00 the Medical morning. [place] pioglitazon 2022- No [id number] 30mg Take 1 [facility] e 30 mg 09-13 tablet by ity of tablet 00:00: 00:00 mouth in [place] 00 :00 the Medical morning. [place] tirzepatide 2022- No [id number] 2.5mg inject 2.5 Univers (MOUNJARO) 09-13 mg under ity of 2.5 mg/0.5 00:00: 00:00 the skin [place] mL PnIj 00 :00 weekly. [facility] pioglitazon 2022- No [id number] 30mg Take 1 [facility] e 30 mg 09-13 tablet by ity of tablet 00:00: 00:00 mouth in [place] 00 :00 the Medical morning. Branch ONDANSETRON 0 Yes Take by Uni vers HCL ORAL 1-31 mouth. ity of 09:40: [place] [address] Medical Branch ONDANSETRON 2022-0 Yes Take by Uni vers HCL ORAL 1-31 mouth. ity of 09:40: [place] [address] Medical Branch ONDANSETRON 2022-0 Yes Take by Uni vers HCL ORAL 1-31 mouth. ity of 09:40: [place] [address] Medical Branch ONDANSETRON 2022-0 Yes Take by Uni vers HCL ORAL 1-31 mouth. ity of 09:40: [place] [address] Medical Branch ONDANSETRON 2022-0 Yes Take by Uni vers HCL ORAL 1-31 mouth. ity of 09:40: [place] [address] Medical Branch ONDANSETRON 2022-0 Yes Take by Uni vers HCL ORAL 1-31 mouth. ity of 09:40: [place] [address] Medical Branch ONDANSETRON 2022-0 Yes Take by Uni vers HCL ORAL 1-31 mouth. ity of 09:40: [place] [address] Medical Branch ONDANSETRON 2022-0 Yes Take by Uni vers HCL ORAL 1-31 mouth. ity of 09:40: [place] [address] Medical Branch ONDANSETRON 2022-0 Yes Take by Uni vers HCL ORAL 1-31 mouth. ity of 09:40: [place] [address] Medical Branch ONDANSETRON 2022-0 Yes Take by Uni vers HCL ORAL 1-31 mouth. ity of 09:40: [place] [address] Medical Branch ONDANSETRON 2022-0 Yes Take by Uni vers HCL ORAL 1-31 mouth. ity of 09:40: [place] [address] Medical Branch ONDANSETRON 2022-0 Yes Take by Uni vers HCL ORAL 1-31 mouth. ity of 09:40: [place] [address] Medical Branch ONDANSETRON 2022-0 Yes Take by Uni vers HCL ORAL 1-31 mouth. ity of 09:40: [place] [address] Medical Branch ONDANSETRON 2022-0 Yes Take by Uni vers HCL ORAL 1-31 mouth. ity of 09:40: [place] [address] Medical Branch ONDANSETRON 2022-0 Yes Take by Uni vers HCL ORAL 1-31 mouth. ity of 09:40: [place] 30 Medical Branch ONDANSETRON 2022-0 Yes Take by Uni vers HCL ORAL 1-31 mouth. ity of 09:40: [place] 30 Medical Branch ONDANSETRON 2022-0 Yes Take by Uni vers HCL ORAL 1-31 mouth. ity of 09:40: [place] 30 Medical Branch ONDANSETRON 2022-0 Yes Take by Uni vers HCL ORAL 1-31 mouth. ity of 09:40: [place] 30 Medical Branch ONDANSETRON 2022-0 Yes Take by Uni vers HCL ORAL 1-31 mouth. ity of 09:40: [place] 30 Medical Branch ONDANSETRON 2022-0 Yes Take by Uni vers HCL ORAL 1-31 mouth. ity of 09:40: [place] 30 Medical Branch ONDANSETRON 2022-0 Yes Take by Uni vers HCL ORAL 1-31 mouth. ity of 09:40: [place] 30 Medical Branch ONDANSETRON 2022-0 Yes Take by Uni vers HCL ORAL 1-31 mouth. ity of 09:40: [place] 30 Medical Branch ONDANSETRON 2022-0 Yes Take by Uni vers HCL ORAL 1-31 mouth. ity of 09:40: [place] 30 Medical Branch ONDANSETRON 2022-0 Yes Take by Uni vers HCL ORAL 1-31 mouth. ity of 09:40: [place] 30 Medical Branch ONDANSETRON 2022-0 Yes Take by Uni vers HCL ORAL 1-31 mouth. ity of 09:40: [place] 30 Medical Branch ONDANSETRON 2022-0 Yes Take by Uni vers HCL ORAL 1-31 mouth. ity of 09:40: [place] 30 Medical Branch ONDANSETRON 2022-0 Yes Take by Uni vers HCL ORAL 1-31 mouth. ity of 09:40: [place] 30 Medical Branch ONDANSETRON 2022-0 Yes Take by Uni vers HCL ORAL 1-31 mouth. ity of 09:40: [place] 30 Medical Branch ONDANSETRON 2022-0 Yes Take by Uni vers HCL ORAL 1-31 mouth. ity of 09:40: [place] 30 Medical Branch ONDANSETRON 2022-0 Yes Take by Uni vers HCL ORAL 1-31 mouth. ity of 09:40: [place] 30 Medical Branch ONDANSETRON 2022-0 Yes Take by Uni vers HCL ORAL 1-31 mouth. ity of 09:40: [place] 30 Medical Branch ONDANSETRON 2023-0 Yes Take by Uni vers HCL ORAL 1-31 mouth. ity of 09:40: [place] 30 Medical Branch ONDANSETRON 2022-0 Yes Take by Uni vers HCL ORAL 1-31 mouth. ity of 09:40: [place] 30 Medical Branch ONDANSETRON 2022-0 Yes Take by Uni vers HCL ORAL 1-31 mouth. ity of 09:40: [place] 30 Medical Branch ONDANSETRON 2022-0 Yes Take by Uni vers HCL ORAL 1-31 mouth. ity of 09:40: [place] 30 Medical Branch ONDANSETRON 2022-0 Yes Take by Uni vers HCL ORAL 1-31 mouth. ity of 09:40: [place] 30 Medical Branch ONDANSETRON 2022-0 Yes Take by Uni vers HCL ORAL 1-31 mouth. ity of 09:40: [place] 30 Medical Branch ONDANSETRON 2022-0 Yes Take by Uni vers HCL ORAL 1-31 mouth. ity of 09:40: [place] 30 Medical Branch ONDANSETRON 2022-0 Yes Take by Uni vers HCL ORAL 1-31 mouth. ity of 09:40: [place] 30 Medical Branch ONDANSETRON 2022-0 Yes Take by Uni vers HCL ORAL 1-31 mouth. ity of 09:40: [place] 30 Medical Branch ONDANSETRON 2022-0 Yes Take by [facility] vers HCL ORAL 1-31 mouth. ity of 09:40: [place] 30 Medical Branch ONDANSETRON 2022-0 Yes Take by Uni vers HCL ORAL 1-31 mouth. ity of 09:40: [place] 30 Medical Branch ONDANSETRON 2022-0 Yes Take by Uni vers HCL ORAL 1-31 mouth. ity of 09:40: [place] 30 Medical Branch ONDANSETRON 2022-0 Yes Take by Uni vers HCL ORAL 1-31 mouth. ity of 09:40: [place] 30 Medical Branch ONDANSETRON 2022-0 Yes Take by Uni vers HCL ORAL 1-31 mouth. ity of 09:40: [place] 30 Medical Branch ONDANSETRON 2022-0 Yes Take by Uni vers HCL ORAL 1-31 mouth. ity of 09:40: [place] 30 Medical Branch ONDANSETRON 2022-0 Yes Take by Uni vers HCL ORAL 1-31 mouth. ity of 09:40: [place] 30 Medical Branch ONDANSETRON 2023-0 Yes Take by Uni vers HCL ORAL 1-31 mouth. ity of 09:40: [address] ONDANSETRON 0 Yes Take by Uni vers HCL ORAL -31 mouth. ity of 09:40: [address] ONDANSETRON Yes Take by Uni vers HCL ORAL -31 mouth. ity of 09:40: [address] ONDANSETRON Yes Take by Uni vers HCL ORAL 31 mouth. ity of 09:40: [address] ONDANSETRON Yes Take by Uni vers HCL ORAL -31 mouth. ity of 09:40: [address] LORazepam 2022-0 2022- No [id number] 1mg 1 mg, U nivers (ATIVAN) 08-16 Oral, ity of tablet 1 mg 20:15: 19:20 ONCE, 1 [place] 00 :00 dose, On Medical Sun08/16/22 Branch at 1415, Routine LORazepam 2022-2022- No [id number] 1mg 1 mg, [facility] (ATIVAN) 08-16 Oral, ity of tablet 1 mg 20:15: 19:20 ONCE, 1 [place] 00 :00 dose, On Medical Sun08/16/22 Branch at 1415, Routine JARDIANCE 0 Yes [id number] TAKE 1 U nivers 25 mg Tab 1-04 TABLET BY ity o f 00:00: MOUTH ONCE [place] 00 DAILY IN Medical THE Branch MORNING HYDROXYZINE 2022-0 Yes [id number] TAKE 1 [facility] 25 mg 1-04 TABLET BY ity of tablet 00:00: MOUTH [place] 00 EVERY 8 Medical HOURS Branch NEEDED FOR ITCHING PROMETHAZIN 2022-0 Yes [id number] TAKE 2 [facility] E 12.5 mg 1-04 TABLETS BY ity of tablet 00:00: MOUTH [place] 00 EVERY 6 Medical HOURS Branch NEEDED FOR VERTIGO JARDIANCE 2022-0 Yes [id number] TAKE 1 U nivers 25 mg Tab 1-04 TABLET BY ity o f 00:00: MOUTH ONCE [place] 00 DAILY IN Medical THE Branch MORNING HYDROXYZINE 2022-0 Yes [id number] TAKE 1 [facility] 25 mg 1-04 TABLET BY ity of tablet 00:00: MOUTH [place] 00 EVERY 8 Medical HOURS Branch NEEDED FOR ITCHING PROMETHAZIN 2023-0 Yes [id number] TAKE 2 [facility] E 12.5 mg 1-04 TABLETS BY ity of tablet 00:00: MOUTH [place] 00 EVERY 6 Medical HOURS Branch NEEDED FOR VERTIGO JARDIANCE 2023-0 Yes [id number] TAKE 1 U nivers 25 mg Tab 1-04 TABLET BY ity o f 00:00: MOUTH ONCE [place] 00 DAILY IN Medical THE Branch MORNING HYDROXYZINE 3-0 Yes [id number] TAKE 1 [facility] 25 mg 1-04 TABLET BY ity of tablet 00:00: MOUTH [place] 00 EVERY 8 Medical HOURS Branch NEEDED FOR ITCHING PROMETHAZIN 3-0 Yes [id number] TAKE 2 [facility] E 12.5 mg 1-04 TABLETS BY ity of tablet 00:00: MOUTH [place] 00 EVERY 6 Medical HOURS Branch NEEDED FOR VERTIGO JARDIANCE 2023-0 Yes [id number] TAKE 1 U nivers 25 mg Tab 1-04 TABLET BY ity o f 00:00: MOUTH ONCE [place] 00 DAILY IN Medical THE Branch MORNING HYDROXYZINE 2022-0 Yes [id number] TAKE 1 [facility] 25 mg 1-04 TABLET BY ity of tablet 00:00: MOUTH [place] 00 EVERY 8 Medical HOURS Branch NEEDED FOR ITCHING PROMETHAZIN 3-0 Yes [id number] TAKE 2 [facility] E 12.5 mg 1-04 TABLETS BY ity of tablet 00:00: MOUTH [place] 00 EVERY 6 Medical HOURS Branch NEEDED FOR VERTIGO JARDIANCE 2023-0 Yes [id number] TAKE 1 U nivers 25 mg Tab 1-04 TABLET BY ity o f 00:00: MOUTH ONCE [place] 00 DAILY IN Medical THE Branch MORNING HYDROXYZINE 3-0 Yes [id number] TAKE 1 [facility] 25 mg 1-04 TABLET BY ity of tablet 00:00: MOUTH [place] 00 EVERY 8 Medical HOURS Branch NEEDED FOR ITCHING PROMETHAZIN 3-0 Yes [id number] TAKE 2 [facility] E 12.5 mg 1-04 TABLETS BY ity of tablet 00:00: MOUTH [place] 00 EVERY 6 Medical HOURS Branch NEEDED FOR VERTIGO JARDIANCE 2023-0 Yes [id number] TAKE 1 U nivers 25 mg Tab 1-04 TABLET BY ity o f 00:00: MOUTH ONCE [place] 00 DAILY IN Medical THE Branch MORNING HYDROXYZINE 2022-0 Yes [id number] TAKE 1 [facility] 25 mg 1-04 TABLET BY ity of tablet 00:00: MOUTH [place] 00 EVERY 8 Medical HOURS Branch NEEDED FOR ITCHING PROMETHAZIN 2023-0 Yes [id number] TAKE 2 [facility] E 12.5 mg 1-04 TABLETS BY ity of tablet 00:00: MOUTH [place] 00 EVERY 6 Medical HOURS Branch NEEDED FOR VERTIGO JARDIANCE 2023-0 Yes [id number] TAKE 1 U nivers 25 mg Tab 1-04 TABLET BY ity o f 00:00: MOUTH ONCE [place] 00 DAILY IN Medical THE Branch MORNING HYDROXYZINE 3-0 Yes [id number] TAKE 1 [facility] 25 mg 1-04 TABLET BY ity of tablet 00:00: MOUTH [place] 00 EVERY 8 Medical HOURS Branch NEEDED FOR ITCHING PROMETHAZIN 2022-0 Yes [id number] TAKE 2 [facility] E 12.5 mg 1-04 TABLETS BY ity of tablet 00:00: MOUTH [place] 00 EVERY 6 Medical HOURS Branch NEEDED FOR VERTIGO JARDIANCE 2023-0 Yes [id number] TAKE 1 U nivers 25 mg Tab 1-04 TABLET BY ity o f 00:00: MOUTH ONCE [place] 00 DAILY IN Medical THE Branch MORNING HYDROXYZINE 3-0 Yes [id number] TAKE 1 [facility] 25 mg 1-04 TABLET BY ity of tablet 00:00: MOUTH [place] 00 EVERY 8 Medical HOURS Branch NEEDED FOR ITCHING PROMETHAZIN 3-0 Yes [id number] TAKE 2 [facility] E 12.5 mg 1-04 TABLETS BY ity of tablet 00:00: MOUTH [place] 00 EVERY 6 Medical HOURS Branch NEEDED FOR VERTIGO JARDIANCE 2023-0 Yes [id number] TAKE 1 U nivers 25 mg Tab 1-04 TABLET BY ity o f 00:00: MOUTH ONCE [place] 00 DAILY IN Medical THE Branch MORNING HYDROXYZINE 3-0 Yes [id number] TAKE 1 [facility] 25 mg 1-04 TABLET BY ity of tablet 00:00: MOUTH [place] 00 EVERY 8 Medical HOURS Branch NEEDED FOR ITCHING PROMETHAZIN 3-0 Yes [id number] TAKE 2 [facility] E 12.5 mg 1-04 TABLETS BY ity of tablet 00:00: MOUTH [place] 00 EVERY 6 Medical HOURS Branch NEEDED FOR VERTIGO JARDIANCE 2023-0 Yes [id number] TAKE 1 [facility] nivers 25 mg Tab 1-04 TABLET BY ity o f 00:00: MOUTH ONCE [place] 00 DAILY IN Medical THE Branch MORNING HYDROXYZINE 2023-0 Yes [id number] TAKE 1 [facility] 25 mg 1-04 TABLET BY ity of tablet 00:00: MOUTH [place] 00 EVERY 8 Medical HOURS Branch NEEDED FOR ITCHING PROMETHAZIN 2023-0 Yes [id number] TAKE 2 [facility] E 12.5 mg 1-04 TABLETS BY ity of tablet 00:00: MOUTH [place] 00 EVERY 6 Medical HOURS Branch NEEDED FOR VERTIGO JARDIANCE 2023-0 Yes [id number] TAKE 1 [facility] nivers 25 mg Tab 1-04 TABLET BY ity o f 00:00: MOUTH ONCE [place] 00 DAILY IN Medical THE Branch MORNING HYDROXYZINE 3-0 Yes [id number] TAKE 1 [facility] 25 mg 1-04 TABLET BY ity of tablet 00:00: MOUTH [place] 00 EVERY 8 Medical HOURS Branch NEEDED FOR ITCHING PROMETHAZIN 2023-0 Yes [id number] TAKE 2 [facility] E 12.5 mg 1-04 TABLETS BY ity of tablet 00:00: MOUTH [place] 00 EVERY 6 Medical HOURS Branch NEEDED FOR VERTIGO JARDIANCE 2023-0 Yes [id number] TAKE 1 [facility]ivers 25 mg Tab 1-04 TABLET BY ity o f 00:00: MOUTH ONCE [place] 00 DAILY IN Medical THE Branch MORNING HYDROXYZINE 3-0 Yes [id number] TAKE 1 [facility] 25 mg 1-04 TABLET BY ity of tablet 00:00: MOUTH [place] 00 EVERY 8 Medical HOURS Branch NEEDED FOR ITCHING PROMETHAZIN 2023-0 Yes [id number] TAKE 2 [facility] E 12.5 mg 1-04 TABLETS BY ity of tablet 00:00: MOUTH [place] 00 EVERY 6 Medical HOURS Branch NEEDED FOR VERTIGO JARDIANCE 2023-0 Yes [id number] TAKE 1 [facility] 25 mg Tab 1-04 TABLET BY ity o f 00:00: MOUTH ONCE [place] 00 DAILY IN Medical THE Branch MORNING HYDROXYZINE 3-0 Yes [id number] TAKE 1 [facility] 25 mg 1-04 TABLET BY ity of tablet 00:00: MOUTH [place] 00 EVERY 8 Medical HOURS Branch NEEDED FOR ITCHING PROMETHAZIN 2023-0 Yes [id number] TAKE 2 [facility] E 12.5 mg 1-04 TABLETS BY ity of tablet 00:00: MOUTH [place] 00 EVERY 6 Medical HOURS Branch NEEDED FOR VERTIGO JARDIANCE 2023-0 Yes [id number] TAKE 1 [facility] nivers 25 mg Tab 1-04 TABLET BY ity o f 00:00: MOUTH ONCE [place] 00 DAILY IN Medical THE Branch MORNING HYDROXYZINE 2022-0 Yes [id number] TAKE 1 [facility] 25 mg 1-04 TABLET BY ity of tablet 00:00: MOUTH [place] 00 EVERY 8 Medical HOURS Branch NEEDED FOR ITCHING PROMETHAZIN 2022-0 Yes [id number] TAKE 2 [facility] E 12.5 mg 1-04 TABLETS BY ity of tablet 00:00: MOUTH [place] 00 EVERY 6 Medical HOURS Branch NEEDED FOR VERTIGO JARDIANCE 2022-0 Yes [id number] TAKE 1 [facility] nivers 25 mg Tab 1-04 TABLET BY ity o f 00:00: MOUTH ONCE [place] 00 DAILY IN Medical THE Branch MORNING HYDROXYZINE 2022-0 Yes [id number] TAKE 1 [facility] 25 mg 1-04 TABLET BY [facility] tablet 00:00: MOUTH [place] 00 EVERY 8 Medical HOURS Branch NEEDED FOR ITCHING PROMETHAZIN 2022-0 Yes [id number] TAKE 2 [facility] E 12.5 mg 1-04 TABLETS BY [facility] tablet 00:00: MOUTH [place] 00 EVERY 6 Medical HOURS Branch NEEDED FOR VERTIGO JARDIANCE 2022-0 Yes [id number] TAKE 1 [facility] 25 mg Tab 1-04 TABLET BY [facility] f 00:00: MOUTH ONCE [place] 00 DAILY IN Medical THE Branch MORNING HYDROXYZINE 2022-0 Yes [id number] TAKE 1 [facility] 25 mg 1-04 TABLET BY [facility] tablet 00:00: MOUTH [place] 00 EVERY 8 Medical HOURS Branch NEEDED FOR ITCHING PROMETHAZIN 2022-0 Yes [id number] TAKE 2 [facility] E 12.5 mg 1-04 TABLETS BY [facility] tablet 00:00: MOUTH [place] 00 EVERY 6 Medical HOURS Branch NEEDED FOR VERTIGO JARDIANCE 2022-0 Yes [id number] TAKE 1 [facility] 25 mg Tab 1-04 TABLET BY [facility] o f 00:00: MOUTH ONCE [place] 00 DAILY IN Medical THE Branch MORNING HYDROXYZINE 2022-0 Yes [id number] TAKE 1 [facility] 25 mg 1-04 TABLET BY [facility] tablet 00:00: MOUTH [place] 00 EVERY 8 Medical HOURS Branch NEEDED FOR ITCHING PROMETHAZIN 2022-0 Yes [id number] TAKE 2 [facility] E 12.5 mg 1-04 TABLETS BY [facility] tablet 00:00: MOUTH [place] 00 EVERY 6 Medical HOURS Branch NEEDED FOR VERTIGO JARDIANCE 2022-0 Yes [id number] TAKE 1 [facility] 25 mg Tab 1-04 TABLET BY [facility] o f 00:00: MOUTH ONCE [place] 00 DAILY IN Medical THE Branch MORNING HYDROXYZINE 2022-0 Yes [id number] TAKE 1 [facility] 25 mg 1-04 TABLET BY [facility] tablet 00:00: MOUTH [place] 00 EVERY 8 Medical HOURS Branch NEEDED FOR ITCHING PROMETHAZIN 2022-0 Yes [id number] TAKE 2 [facility] E 12.5 mg 1-04 TABLETS BY [facility] tablet 00:00: MOUTH [place] 00 EVERY 6 Medical HOURS Branch NEEDED FOR VERTIGO JARDIANCE 2022-0 Yes [id number] TAKE 1 [facility] 25 mg Tab 1-04 TABLET BY [facility] o f 00:00: MOUTH ONCE [place] 00 DAILY IN Medical THE Branch MORNING PROMETHAZIN 2022-0 Yes [id number] TAKE 2 [facility] E 12.5 mg 1-04 TABLETS BY [facility] tablet 00:00: MOUTH [place] 00 EVERY 6 Medical HOURS Branch NEEDED FOR VERTIGO JARDIANCE 2022-0 Yes [id number] TAKE 1 [facility] 25 mg Tab 1-04 TABLET BY [facility] o f 00:00: MOUTH ONCE [place] 00 DAILY IN Medical THE Branch MORNING PROMETHAZIN 2022-0 Yes [id number] TAKE 2 [facility] E 12.5 mg 1-04 TABLETS BY [facility] tablet 00:00: MOUTH [place] 00 EVERY 6 Medical HOURS Branch NEEDED FOR VERTIGO JARDIANCE 2022-0 Yes [id number] TAKE 1 [facility] 25 mg Tab 1-04 TABLET BY [facility] o f 00:00: MOUTH ONCE [place] 00 DAILY IN Medical THE Branch MORNING PROMETHAZIN 2022-0 Yes [id number] TAKE 2 [facility] 12.5 mg 1-04 TABLETS BY [facility] tablet 00:00: MOUTH [place] 00 EVERY 6 Medical HOURS Branch NEEDED FOR VERTIGO JARDIANCE 2022-0 Yes [id number] TAKE 1 [facility] 25 mg Tab 1-04 TABLET BY [facility] o f 00:00: MOUTH ONCE [place] 00 DAILY IN Medical THE Branch MORNING PROMETHAZIN 2022-0 Yes [id number] TAKE 2 [facility] E 12.5 mg 1-04 TABLETS BY [facility] tablet 00:00: MOUTH [place] 00 EVERY 6 Medical HOURS Branch NEEDED FOR VERTIGO JARDIANCE 2022-0 Yes [id number] TAKE 1 [facility] 25 mg Tab 1-04 TABLET BY it[facility] o f 00:00: MOUTH ONCE [place] 00 DAILY IN [facility] THE [place] MORNING PROMETHAZIN 2022-0 Yes [id number] TAKE 2 [facility] E 12.5 mg 1-04 TABLETS BY [facility] tablet 00:00: MOUTH [place] 00 EVERY 6 Medical HOURS Branch NEEDED FOR VERTIGO JARDIANCE 2022-0 Yes [id number] TAKE 1 [facility] 25 mg Tab 1-04 TABLET BY it[facility] o f 00:00: MOUTH ONCE [place] 00 DAILY IN [facility] THE [place] MORNING PROMETHAZIN 2022-0 Yes [id number] TAKE 2 [facility] E 12.5 mg 1-04 TABLETS BY [facility] tablet 00:00: MOUTH [place] 00 EVERY 6 Medical HOURS Branch NEEDED FOR VERTIGO JARDIANCE 2022-0 Yes [id number] TAKE 1 [facility] 25 mg Tab 1-04 TABLET BY ity o f 00:00: MOUTH ONCE [place] 00 DAILY IN [facility] THE [place] MORNING PROMETHAZIN 2022-0 Yes [id number] TAKE 2 [facility] E 12.5 mg 1-04 TABLETS BY [facility] tablet 00:00: MOUTH [place] 00 EVERY 6 Medical HOURS Branch NEEDED FOR VERTIGO JARDIANCE 2022-0 Yes [id number] TAKE 1 [facility] 25 mg Tab 1-04 TABLET BY ity o f 00:00: MOUTH ONCE [place] 00 DAILY IN [facility] THE [place] MORNING PROMETHAZIN 2022-0 Yes [id number] TAKE 2 [facility] E 12.5 mg 1-04 TABLETS BY [facility] tablet 00:00: MOUTH [place] 00 EVERY 6 Medical HOURS Branch NEEDED FOR VERTIGO JARDIANCE 2022-0 Yes [id number] TAKE 1 [facility] 25 mg Tab 1-04 TABLET BY it[facility] o f 00:00: MOUTH ONCE [place] 00 DAILY IN [facility] THE [place] MORNING PROMETHAZIN 2022-0 Yes [id number] TAKE 2 [facility] E 12.5 mg 1-04 TABLETS BY [facility] tablet 00:00: MOUTH [place] 00 EVERY 6 Medical HOURS Branch NEEDED FOR VERTIGO JARDIANCE 2022-0 Yes [id number] TAKE 1 [facility] 25 mg Tab 1-04 TABLET BY it[facility] o f 00:00: MOUTH ONCE [place] 00 DAILY IN [facility] THE [place] MORNING PROMETHAZIN 2022-0 Yes [id number] TAKE 2 [facility] E 12.5 mg 1-04 TABLETS BY [facility] tablet 00:00: MOUTH [place] 00 EVERY 6 Medical HOURS Branch NEEDED FOR VERTIGO JARDIANCE 2022-0 Yes [id number] TAKE 1 [facility] 25 mg Tab 1-04 TABLET BY it[facility] o f 00:00: MOUTH ONCE [place] 00 DAILY IN Medical THE Branch MORNING PROMETHAZIN 2022-0 Yes [id number] TAKE 2 [facility] 12.5 mg 1-04 TABLETS BY [facility] tablet 00:00: MOUTH [place] 00 EVERY 6 Medical HOURS Branch NEEDED FOR VERTIGO JARDIANCE 2022-0 Yes [id number] TAKE 1 [facility] 25 mg Tab 1-04 TABLET BY it[facility] o f 00:00: MOUTH ONCE [place] 00 DAILY IN Medical THE Branch MORNING PROMETHAZIN 2022-0 Yes [id number] TAKE 2 [facility] 12.5 mg 1-04 TABLETS BY [facility] tablet 00:00: MOUTH [place] 00 EVERY 6 Medical HOURS Branch NEEDED FOR VERTIGO JARDIANCE 2022-0 Yes [id number] TAKE 1 [facility] 25 mg Tab 1-04 TABLET BY ity o f 00:00: MOUTH ONCE [place] 00 DAILY IN [facility] THE Branch MORNING PROMETHAZIN 2022-0 Yes [id number] TAKE 2 [facility] E 12.5 mg 1-04 TABLETS BY [facility] tablet 00:00: MOUTH [place] 00 EVERY 6 Medical HOURS Branch NEEDED FOR VERTIGO JARDIANCE 2022-0 Yes [id number] TAKE 1 [facility] 25 mg Tab 1-04 TABLET BY ity o f 00:00: MOUTH ONCE [place] 00 DAILY IN [facility] THE Branch MORNING PROMETHAZIN 2022-0 Yes [id number] TAKE 2 [facility] E 12.5 mg 1-04 TABLETS BY [facility] tablet 00:00: MOUTH [place] 00 EVERY 6 Medical HOURS Branch NEEDED FOR VERTIGO JARDIANCE 2022-0 Yes [id number] TAKE 1 [facility] 25 mg Tab 1-04 TABLET BY ity o f 00:00: MOUTH ONCE [place] 00 DAILY IN Medical THE Branch MORNING PROMETHAZIN 2022-0 Yes [id number] TAKE 2 [facility] 12.5 mg 1-04 TABLETS BY [facility] tablet 00:00: MOUTH [place] 00 EVERY 6 Medical HOURS Branch NEEDED FOR VERTIGO JARDIANCE 2022-0 Yes [id number] TAKE 1 [facility] 25 mg Tab 1-04 TABLET BY ity o f 00:00: MOUTH ONCE [place] 00 DAILY IN [facility] THE [place] MORNING PROMETHAZIN 2022-0 Yes [id number] TAKE 2 [facility] E 12.5 mg 1-04 TABLETS BY [facility] tablet 00:00: MOUTH [place] 00 EVERY 6 Medical HOURS Branch NEEDED FOR VERTIGO JARDIANCE 2022-0 Yes [id number] TAKE 1 [facility] 25 mg Tab 1-04 TABLET BY ity o f 00:00: MOUTH ONCE [place] 00 DAILY IN [facility] THE [place] MORNING PROMETHAZIN 2022-0 Yes [id number] TAKE 2 [facility] E 12.5 mg 1-04 TABLETS BY [facility] tablet 00:00: MOUTH [place] 00 EVERY 6 Medical HOURS Branch NEEDED FOR VERTIGO JARDIANCE 2022-0 Yes [id number] TAKE 1 [facility] 25 mg Tab 1-04 TABLET BY ity o f 00:00: MOUTH ONCE [place] 00 DAILY IN [facility] THE [place] MORNING PROMETHAZIN 2022-0 Yes [id number] TAKE 2 [facility] E 12.5 mg 1-04 TABLETS BY [facility] tablet 00:00: MOUTH [place] 00 EVERY 6 Medical HOURS Branch NEEDED FOR VERTIGO JARDIANCE 2022-0 Yes [id number] TAKE 1 [facility] 25 mg Tab 1-04 TABLET BY ity o f 00:00: MOUTH ONCE [place] 00 DAILY IN [facility] THE [place] MORNING PROMETHAZIN 2022-0 Yes [id number] TAKE 2 [facility] E 12.5 mg 1-04 TABLETS BY [facility] of tablet 00:00: MOUTH [place] 00 EVERY 6 Medical HOURS Branch NEEDED FOR VERTIGO JARDIANCE 2022-0 Yes [id number] TAKE 1 [facility] 25 mg Tab 1-04 TABLET BY ity o f 00:00: MOUTH ONCE [place] 00 DAILY IN [facility] THE [place] MORNING PROMETHAZIN 2022-0 Yes [id number] TAKE 2 [facility] E 12.5 mg 1-04 TABLETS BY [facility] of tablet 00:00: MOUTH [place] 00 EVERY 6 Medical HOURS Branch NEEDED FOR VERTIGO JARDIANCE 2022-0 Yes [id number] TAKE 1 [facility] 25 mg Tab 1-04 TABLET BY ity o f 00:00: MOUTH ONCE [place] 00 DAILY IN [facility] THE [place] MORNING PROMETHAZIN 2022-0 Yes [id number] TAKE 2 [facility] E 12.5 mg 1-04 TABLETS BY [facility] of tablet 00:00: MOUTH [place] 00 EVERY 6 Medical HOURS Branch NEEDED FOR VERTIGO JARDIANCE 2022-0 Yes [id number] TAKE 1 [facility] 25 mg Tab 1-04 TABLET BY ity o f 00:00: MOUTH ONCE [place] 00 DAILY IN [facility] THE Branch MORNING PROMETHAZIN 2022-0 Yes [id number] TAKE 2 [facility] E 12.5 mg 1-04 TABLETS BY [facility] of tablet 00:00: MOUTH [place] 00 EVERY 6 Medical HOURS Branch NEEDED FOR VERTIGO JARDIANCE 2022-0 Yes [id number] TAKE 1 [facility] 25 mg Tab 1-04 TABLET BY ity o f 00:00: MOUTH ONCE [place] 00 DAILY IN [facility] THE Branch MORNING PROMETHAZIN 2022-0 Yes [id number] TAKE 2 [facility] E 12.5 mg 1-04 TABLETS BY [facility] of tablet 00:00: MOUTH [place] 00 EVERY 6 Medical HOURS Branch NEEDED FOR VERTIGO JARDIANCE 2022-0 Yes [id number] TAKE 1 [facility] 25 mg Tab 1-04 TABLET BY ity o f 00:00: MOUTH ONCE [place] 00 DAILY IN [facility] THE Branch MORNING PROMETHAZIN 2022-0 Yes [id number] TAKE 2 [facility] E 12.5 mg 1-04 TABLETS BY [facility] of tablet 00:00: MOUTH [place] 00 EVERY 6 Medical HOURS Branch NEEDED FOR VERTIGO JARDIANCE 2022-0 Yes [id number] TAKE 1 [facility] 25 mg Tab 1-04 TABLET BY ity o f 00:00: MOUTH ONCE [place] 00 DAILY IN [facility] THE [place] MORNING PROMETHAZIN 2022-0 Yes [id number] TAKE 2 [facility] E 12.5 mg 1-04 TABLETS BY [facility] of tablet 00:00: MOUTH [place] 00 EVERY 6 Medical HOURS Branch NEEDED FOR VERTIGO JARDIANCE 2022-0 Yes [id number] TAKE 1 [facility] 25 mg Tab 1-04 TABLET BY ity o f 00:00: MOUTH ONCE [place] 00 DAILY IN [facility] THE [place] MORNING PROMETHAZIN 2022-0 Yes [id number] TAKE 2 [facility] E 12.5 mg 1-04 TABLETS BY [facility] of tablet 00:00: MOUTH [place] 00 EVERY 6 Medical HOURS Branch NEEDED FOR VERTIGO JARDIANCE 2022-0 Yes [id number] TAKE 1 [facility] 25 mg Tab 1-04 TABLET BY ity o f 00:00: MOUTH ONCE [place] 00 DAILY IN [facility] THE Branch MORNING PROMETHAZIN 2022-0 Yes [id number] TAKE 2 [facility] E 12.5 mg 1-04 TABLETS BY [facility] of tablet 00:00: MOUTH [place] 00 EVERY 6 Medical HOURS Branch NEEDED FOR VERTIGO JARDIANCE 2022-0 Yes [id number] TAKE 1 [facility] 25 mg Tab 1-04 TABLET BY ity o f 00:00: MOUTH ONCE [place] 00 DAILY IN Medical THE Branch MORNING PROMETHAZIN 2022-0 Yes [id number] TAKE 2 [facility] E 12.5 mg 1-04 TABLETS BY [facility] of tablet 00:00: MOUTH [place] 00 EVERY 6 Medical HOURS Branch NEEDED FOR VERTIGO JARDIANCE 2022-0 Yes [id number] TAKE 1 [facility] 25 mg Tab 1-04 TABLET BY ity o f 00:00: MOUTH ONCE [place] 00 DAILY IN [facility] THE Branch MORNING PROMETHAZIN 2022-0 Yes [id number] TAKE 2 [facility] E 12.5 mg 1-04 TABLETS BY [facility] of tablet 00:00: MOUTH [place] 00 EVERY 6 Medical HOURS Branch NEEDED FOR VERTIGO JARDIANCE 2022-0 Yes [id number] TAKE 1 [facility] 25 mg Tab 1-04 TABLET BY ity o f 00:00: MOUTH ONCE [place] 00 DAILY IN [facility] THE Branch MORNING PROMETHAZIN 2022-0 Yes [id number] TAKE 2 [facility] E 12.5 mg 1-04 TABLETS BY [facility] of tablet 00:00: MOUTH [place] 00 EVERY 6 Medical HOURS Branch NEEDED FOR VERTIGO JARDIANCE 2022-0 Yes [id number] TAKE 1 [facility] 25 mg Tab 1-04 TABLET BY ity o f 00:00: MOUTH ONCE [place] 00 DAILY IN Medical THE Branch MORNING PROMETHAZIN 2022-0 Yes [id number] TAKE 2 [facility] E 12.5 mg 1-04 TABLETS BY [facility] of tablet 00:00: MOUTH [place] 00 EVERY 6 Medical HOURS Branch NEEDED FOR VERTIGO JARDIANCE 2022-0 Yes [id number] TAKE 1 [facility] 25 mg Tab 1-04 TABLET BY ity o f 00:00: MOUTH ONCE [place] 00 DAILY IN [facility] THE Branch MORNING JARDIANCE 2022-0 Yes [id number] TAKE 1 [facility] 25 mg Tab 1-04 TABLET BY ity o f 00:00: MOUTH ONCE [place] 00 DAILY IN [facility] THE Branch MORNING JARDIANCE 2022-0 Yes [id number] TAKE 1 [facility] 25 mg Tab 1-04 TABLET BY ity o f 00:00: MOUTH ONCE [place] 00 DAILY IN [facility] THE Branch MORNING JARDIANCE 2022-0 Yes [id number] TAKE 1 [facility] 25 mg Tab 1-04 TABLET BY ity o f 00:00: MOUTH ONCE [place] 00 DAILY IN Medical THE [place] MORNING JARDIANCE 2022-0 Yes [id number] TAKE 1 [facility] 25 mg Tab 1-04 TABLET BY ity o f 00:00: MOUTH ONCE [place] 00 DAILY IN Medical THE [place] MORNING JARDIANCE 2022-0 Yes [id number] TAKE 1 [facility] 25 mg Tab 1-04 TABLET BY ity o f 00:00: MOUTH ONCE [place] 00 DAILY IN [facility] THE Branch MORNING JARDIANCE 2022-0 Yes [id number] TAKE 1 [facility] 25 mg Tab 1-04 TABLET BY ity o f 00:00: MOUTH ONCE [place] 00 DAILY IN [facility] THE [place] MORNING JARDIANCE 2022-0 Yes [id number] TAKE 1 [facility] 25 mg Tab 1-04 TABLET BY ity o f 00:00: MOUTH ONCE [place] 00 DAILY IN [facility] THE [place] MORNING JARDIANCE 2022-0 Yes [id number] TAKE 1 [facility] 25 mg Tab 1-04 TABLET BY ity o f 00:00: MOUTH ONCE [place] 00 DAILY IN Medical THE [place] MORNING JARDIANCE 2022-0 Yes [id number] TAKE 1 [facility] 25 mg Tab 1-04 TABLET BY ity o f 00:00: MOUTH ONCE [place] 00 DAILY IN Medical THE Branch MORNING JARDIANCE 2022-0 Yes [id number] TAKE 1 [facility] 25 mg Tab 1-04 TABLET BY ity o f 00:00: MOUTH ONCE [place] 00 DAILY IN Medical THE [place] MORNING JARDIANCE 2022-0 Yes [id number] TAKE 1 [facility] 25 mg Tab 1-04 TABLET BY ity o f 00:00: MOUTH ONCE [place] 00 DAILY IN Medical THE [place] MORNING JARDIANCE 2022-0 Yes [id number] TAKE 1 [facility] 25 mg Tab 1-04 TABLET BY ity o f 00:00: MOUTH ONCE [place] 00 DAILY IN Medical THE [place] MORNING JARDIANCE 2022-0 Yes [id number] TAKE 1 [facility] 25 mg Tab 1-04 TABLET BY ity o f 00:00: MOUTH ONCE [place] 00 DAILY IN Medical THE Branch MORNING JARDIANCE 2022-0 Yes [id number] TAKE 1 [facility] 25 mg Tab 1-04 TABLET BY ity o f 00:00: MOUTH ONCE [place] 00 DAILY IN Medical THE Branch MORNING JARDIANCE 2022-0 Yes [id number] TAKE 1 [facility] 25 mg Tab 1-04 TABLET BY ity o f 00:00: MOUTH ONCE [place] 00 DAILY IN Medical THE Branch MORNING JARDIANCE 2022-0 Yes [id number] TAKE 1 [facility] 25 mg Tab 1-04 TABLET BY ity o f 00:00: MOUTH ONCE [place] 00 DAILY IN Medical THE Branch MORNING HYDROXYZINE 2022-0 Yes [id number] TAKE 1 [facility] 25 mg 1-04 TABLET BY [facility] of tablet 00:00: MOUTH [place] 00 EVERY 8 Medical HOURS Branch NEEDED FOR ITCHING PROMETHAZIN 2022-0 Yes [id number] TAKE 2 [facility] E 12.5 mg 1-04 TABLETS BY [facility] of tablet 00:00: MOUTH [place] 00 EVERY 6 Medical HOURS Branch NEEDED FOR VERTIGO JARDIANCE 2022-0 Yes [id number] TAKE 1 [facility] 25 mg Tab 1-04 TABLET BY ity o f 00:00: MOUTH ONCE [place] 00 DAILY IN Medical THE Branch MORNING HYDROXYZINE 2022-0 Yes [id number] TAKE 1 [facility] 25 mg 1-04 TABLET BY [facility] of tablet 00:00: MOUTH [place] 00 EVERY 8 Medical HOURS Branch NEEDED FOR ITCHING PROMETHAZIN 3-0 Yes [id number] TAKE 2 [facility] E 12.5 mg 1-04 TABLETS BY [facility] of tablet 00:00: MOUTH [place] 00 EVERY 6 Medical HOURS Branch NEEDED FOR VERTIGO JARDIANCE 2023-0 Yes [id number] TAKE 1 [facility] 25 mg Tab 1-04 TABLET BY ity o f 00:00: MOUTH ONCE [place] 00 DAILY IN Medical THE Branch MORNING HYDROXYZINE 3-0 Yes [id number] TAKE 1 [facility] 25 mg 1-04 TABLET BY [facility] of tablet 00:00: MOUTH [place] 00 EVERY 8 Medical HOURS Branch NEEDED FOR ITCHING PROMETHAZIN 3-0 Yes [id number] TAKE 2 [facility] E 12.5 mg 1-04 TABLETS BY [facility] of tablet 00:00: MOUTH [place] 00 EVERY 6 Medical HOURS Branch NEEDED FOR VERTIGO JARDIANCE 2023-0 Yes [id number] TAKE 1 [facility] 25 mg Tab 1-04 TABLET BY ity o f 00:00: MOUTH ONCE [place] 00 DAILY IN Medical THE Branch MORNING HYDROXYZINE 3-0 Yes [id number] TAKE 1 [facility] 25 mg 1-04 TABLET BY [facility] of tablet 00:00: MOUTH [place] 00 EVERY 8 Medical HOURS Branch NEEDED FOR ITCHING PROMETHAZIN 2023-0 Yes [id number] TAKE 2 [facility] E 12.5 mg 1-04 TABLETS BY [facility] of tablet 00:00: MOUTH [place] 00 EVERY 6 Medical HOURS Branch NEEDED FOR VERTIGO JARDIANCE 2022-0 Yes [id number] TAKE 1 [facility] 25 mg Tab 1-04 TABLET BY ity o f 00:00: MOUTH ONCE [place] 00 DAILY IN Medical THE Branch MORNING HYDROXYZINE 2022-0 Yes [id number] TAKE 1 [facility] 25 mg 1-04 TABLET BY [facility] of tablet 00:00: MOUTH [place] 00 EVERY 8 Medical HOURS Branch NEEDED FOR ITCHING PROMETHAZIN 3-0 Yes [id number] TAKE 2 [facility] E 12.5 mg 1-04 TABLETS BY [facility] of tablet 00:00: MOUTH [place] 00 EVERY 6 Medical HOURS Branch NEEDED FOR VERTIGO JARDIANCE 2023-0 Yes [id number] TAKE 1 [facility] 25 mg Tab 1-04 TABLET BY ity o f 00:00: MOUTH ONCE [place] 00 DAILY IN Medical THE Branch MORNING HYDROXYZINE 2022-0 Yes [id number] TAKE 1 [facility] 25 mg 1-04 TABLET BY [facility] of tablet 00:00: MOUTH [place] 00 EVERY 8 Medical HOURS Branch NEEDED FOR ITCHING PROMETHAZIN 3-0 Yes [id number] TAKE 2 [facility] E 12.5 mg 1-04 TABLETS BY [facility] of tablet 00:00: MOUTH [place] 00 EVERY 6 Medical HOURS Branch NEEDED FOR VERTIGO JARDIANCE 2023-0 Yes [id number] TAKE 1 [facility] 25 mg Tab 1-04 TABLET BY ity o f 00:00: MOUTH ONCE [place] 00 DAILY IN Medical THE Branch MORNING HYDROXYZINE 3-0 Yes [id number] TAKE 1 [facility] 25 mg 1-04 TABLET BY [facility] of tablet 00:00: MOUTH [place] 00 EVERY 8 Medical HOURS Branch NEEDED FOR ITCHING PROMETHAZIN 2023-0 Yes [id number] TAKE 2 [facility] E 12.5 mg 1-04 TABLETS BY [facility] of tablet 00:00: MOUTH [place] 00 EVERY 6 Medical HOURS Branch NEEDED FOR VERTIGO JARDIANCE Yes [id number] TAKE 1 [facility] 25 mg Tab 1-04 TABLET BY ity o f 00:00: MOUTH ONCE [place] 00 DAILY IN [facility] THE Branch MORNING HYDROXYZINE 2022- Yes [id number] TAKE 1 [facility] 25 mg 1-04 TABLET BY [facility] of tablet 00:00: MOUTH [place] 00 EVERY 8 Medical HOURS Branch NEEDED FOR ITCHING PROMETHAZIN Yes [id number] TAKE 2 [facility] E 12.5 mg 1-04 TABLETS BY [facility] of tablet 00:00: MOUTH [place] 00 EVERY 6 Medical HOURS Branch NEEDED FOR VERTIGO JARDIANCE 2022-0 2022- No [id number] TAKE 1 [facility] 25 mg Tab 1-04 05-02 TABLET BY ity of 00:00: 00:00 MOUTH ONCE [place] 00 :00 DAILY IN [facility] THE [place] MORNING JARDIANCE 2022-0 2022- No [id number] TAKE 1 [facility] 25 mg Tab 1-04 05-02 TABLET BY ity of 00:00: 00:00 MOUTH ONCE [place] 00 :00 DAILY IN [facility] THE [place] MORNING JARDIANCE 2022-0 2022- No [id number] TAKE 1 [facility] 25 mg Tab 1-04 05-02 TABLET BY ity of 00:00: 00:00 MOUTH ONCE [place] 00 :00 DAILY IN [facility] THE [place] MORNING JARDIANCE 2022-0 2022- No [id number] TAKE 1 [facility] 25 mg Tab 1-04 05-02 TABLET BY ity of 00:00: 00:00 MOUTH ONCE [place] 00 :00 DAILY IN [facility] THE [place] MORNING PROMETHAZIN 2022-0 2022- No [id number] TAKE 2 [facility] E 12.5 mg 1-04 03-28 TABLETS BY [facility] of tablet 00:00: 00:00 MOUTH [place] 00 :00 EVERY 6 Medical HOURS Branch NEEDED FOR VERTIGO PROMETHAZIN 2022-0 2022- No [id number] TAKE 2 [facility] E 12.5 mg 1-04 03-28 TABLETS BY [facility] of tablet 00:00: 00:00 MOUTH [place] 00 :00 EVERY 6 Medical HOURS Branch NEEDED FOR VERTIGO PROMETHAZIN 2022-0 2022- No [id number] TAKE 2 [facility] E 12.5 mg 1-04 03-28 TABLETS BY [facility] of tablet 00:00: 00:00 MOUTH [place] 00 :00 EVERY 6 Medical HOURS Branch NEEDED FOR VERTIGO PROMETHAZIN 3-0 2022- No [id number] TAKE 2 [facility] E 12.5 mg 1-04 -28 TABLETS BY [facility] of tablet 00:00: 00:00 MOUTH [place] 00 :00 EVERY 6 Medical HOURS Branch NEEDED FOR VERTIGO PROMETHAZIN 3-0 2022- No [id number] TAKE 2 [facility] E 12.5 mg 1-04 -28 TABLETS BY [facility] of tablet 00:00: 00:00 MOUTH [place] 00 :00 EVERY 6 Medical HOURS Branch NEEDED FOR VERTIGO HYDROXYZINE 2022-0 2022- No [id number] TAKE 1 [facility] 25 mg 1-04 02-09 TABLET BY [facility] of tablet 00:00: 00:00 [facility] 00 :00 EVERY 8 Medical HOURS Branch NEEDED FOR ITCHING HYDROXYZINE 3-0 2022- No [id number] TAKE 1 [facility] 25 mg 1-04 02-09 TABLET BY [facility] of tablet 00:00: 00:00 [facility] 00 :00 EVERY 8 Medical HOURS Branch NEEDED FOR ITCHING HYDROXYZINE 2022-0 2022- No [id number] TAKE 1 [facility] 25 mg 1-04 02-09 TABLET BY [facility] of tablet 00:00: 00:00 [facility] 00 :00 EVERY 8 Medical HOURS Branch NEEDED FOR ITCHING HYDROXYZINE 2022-0 2022- No [id number] TAKE 1 [facility] 25 mg 1-04 02-09 TABLET BY [facility] of tablet 00:00: 00:00 [facility] 00 :00 EVERY 8 Medical HOURS Branch NEEDED FOR ITCHING fluconazole 2021- Yes [id number] 200mg Take 1 [facility] 200 mg 2-08 tablet by [facility] of tablet 00:00: mouth in [place] 00 the Medical morning. Branch fluconazole 2021- Yes [id number] 200mg Take 1 [facility] 200 mg 2-08 tablet by [facility] of tablet 00:00: mouth in [place] 00 the Medical morning. Branch fluconazole 2021- Yes [id number] 200mg Take 1 [facility] 200 mg 2-08 tablet by [facility] of tablet 00:00: mouth in [place] 00 the Medical morning. Branch fluconazole 2021- Yes [id number] 200mg Take 1 [facility] 200 mg 2-08 tablet by [facility] of tablet 00:00: mouth in [place] 00 the Medical morning. Branch fluconazole 2021-1 Yes [id number] 200mg Take 1 [facility] 200 mg 2-08 tablet by [facility] of tablet 00:00: mouth in [place] 00 the Medical morning. Branch fluconazole 2021-1 Yes [id number] 200mg Take 1 [facility] 200 mg 2-08 tablet by [facility] of tablet 00:00: mouth in [place] 00 the Medical morning. Branch fluconazole 2021-1 Yes [id number] 200mg Take 1 [facility] 200 mg 2-08 tablet by [facility] of tablet 00:00: mouth in [place] the Medical morning. Branch fluconazole 2021-1 Yes [id number] 200mg Take 1 [facility] 200 mg 2-08 tablet by [facility] of tablet 00:00: mouth in [place] the Medical morning. Branch fluconazole 2021-1 Yes [id number] 200mg Take 1 [facility] 200 mg 2-08 tablet by [facility] of tablet 00:00: mouth in [place] the Medical morning. Branch fluconazole 2021-1 Yes [id number] 200mg Take 1 [facility] 200 mg 2-08 tablet by [facility] of tablet 00:00: mouth in [place] the Medical morning. Branch fluconazole 2021-1 Yes [id number] 200mg Take 1 [facility] 200 mg 2-08 tablet by [facility] of tablet 00:00: mouth in [place] the Medical morning. Branch fluconazole 2021-1 Yes [id number] 200mg Take 1 [facility] 200 mg 2-08 tablet by [facility] of tablet 00:00: mouth in [place] the Medical morning. Branch fluconazole 2021-1 Yes [id number] 200mg Take 1 [facility] 200 mg 2-08 tablet by [facility] of tablet 00:00: mouth in [place] the Medical morning. Branch fluconazole 2021-1 Yes [id number] 200mg Take 1 [facility] 200 mg 2-08 tablet by [facility] of tablet 00:00: mouth in [place] 00 the Medical morning. Branch fluconazole 2021-1 Yes [id number] 200mg Take 1 [facility] 200 mg 2-08 tablet by [facility] of tablet 00:00: mouth in [place] 00 the Medical morning. Branch fluconazole 2021-1 Yes [id number] 200mg Take 1 [facility] 200 mg 2-08 tablet by [facility] of tablet 00:00: mouth in [place] 00 the Medical morning. Branch fluconazole 2021-1 Yes [id number] 200mg Take 1 [facility] 200 mg 2-08 tablet by [facility] of tablet 00:00: mouth in [place] 00 the Medical morning. Branch fluconazole 2021-1 Yes [id number] 200mg Take 1 [facility] 200 mg 2-08 tablet by [facility] of tablet 00:00: mouth in [place] the Medical morning. Branch fluconazole 2021-1 Yes [id number] 200mg Take 1 [facility] 200 mg 2-08 tablet by [facility] of tablet 00:00: mouth in [place] the Medical morning. Branch fluconazole 2021-1 Yes [id number] 200mg Take 1 [facility] 200 mg 2-08 tablet by [facility] of tablet 00:00: mouth in [place] the Medical morning. Branch fluconazole 2021-1 Yes [id number] 200mg Take 1 [facility] 200 mg 2-08 tablet by [facility] of tablet 00:00: mouth in [place] the Medical morning. Branch fluconazole 2021-1 Yes [id number] 200mg Take 1 [facility] 200 mg 2-08 tablet by [facility] of tablet 00:00: mouth in [place] the Medical morning. Branch fluconazole 2021-1 Yes [id number] 200mg Take 1 [facility] 200 mg 2-08 tablet by [facility] of tablet 00:00: mouth in [place] the Medical morning. Branch fluconazole 2021-1 Yes [id number] 200mg Take 1 [facility] 200 mg 2-08 tablet by [facility] of tablet 00:00: mouth in [place] the Medical morning. Branch fluconazole 2021-1 Yes [id number] 200mg Take 1 [facility] 200 mg 2-08 tablet by [facility] of tablet 00:00: mouth in [place] the Medical morning. Branch fluconazole 2021-1 Yes [id number] 200mg Take 1 [facility] 200 mg 2-08 tablet by [facility] of tablet 00:00: mouth in [place] the Medical morning. Branch fluconazole 2021-1 Yes [id number] 200mg Take 1 [facility] 200 mg 2-08 tablet by [facility] of tablet 00:00: mouth in [place] the Medical morning. Branch fluconazole 2021-1 Yes [id number] 200mg Take 1 [facility] 200 mg 2-08 tablet by [facility] of tablet 00:00: mouth in [place] the Medical morning. Branch fluconazole 2021-1 Yes [id number] 200mg Take 1 [facility] 200 mg 2-08 tablet by [facility] of tablet 00:00: mouth in [place] the Medical morning. Branch fluconazole 2021-1 Yes [id number] 200mg Take 1 [facility] 200 mg 2-08 tablet by [facility] of tablet 00:00: mouth in [place] 00 the Medical morning. Branch fluconazole 2021-1 Yes [id number] 200mg Take 1 [facility] 200 mg 2-08 tablet by [facility] of tablet 00:00: mouth in [place] the Medical morning. Branch fluconazole 2021-1 Yes [id number] 200mg Take 1 [facility] 200 mg 2-08 tablet by [facility] of tablet 00:00: mouth in [place] the Medical morning. Branch fluconazole 2021-1 Yes [id number] 200mg Take 1 [facility] 200 mg 2-08 tablet by [facility] of tablet 00:00: mouth in [place] the Medical morning. Branch fluconazole 2021-1 Yes [id number] 200mg Take 1 [facility] 200 mg 2-08 tablet by [facility] of tablet 00:00: mouth in [place] the Medical morning. Branch fluconazole 2021-1 Yes [id number] 200mg Take 1 [facility] 200 mg 2-08 tablet by [facility] of tablet 00:00: mouth in [place] the Medical morning. Branch fluconazole 2021-1 Yes [id number] 200mg Take 1 [facility] 200 mg 2-08 tablet by [facility] of tablet 00:00: mouth in [place] the Medical morning. Branch fluconazole 2021-1 Yes [id number] 200mg Take 1 [facility] 200 mg 2-08 tablet by [facility]y of tablet 00:00: mouth in [place] the Medical morning. Branch fluconazole 2021-1 Yes [id number] 200mg Take 1 [facility] 200 mg 2-08 tablet by ity of tablet 00:00: mouth in [place] the Medical morning. Branch fluconazole 2021-1 Yes [id number] 200mg Take 1 [facility] 200 mg 2-08 tablet by [facility]y of tablet 00:00: mouth in [place] the Medical morning. Branch fluconazole 2021-1 Yes [id number] 200mg Take 1 [facility] 200 mg 2-08 tablet by [facility] of tablet 00:00: mouth in [place] the Medical morning. Branch fluconazole 2-1 Yes [id number] 200mg Take 1 [facility] 200 mg 2-08 tablet by ity of tablet 00:00: mouth in [place] the Medical morning. Branch fluconazole 2-1 Yes [id number] 200mg Take 1 [facility] 200 mg 2-08 tablet by ity of tablet 00:00: mouth in [place] 00 the Medical morning. Branch fluconazole 2021-1 Yes [id number] 200mg Take 1 [facility] 200 mg 2-08 tablet by ity of tablet 00:00: mouth in [place] 00 the Medical morning. Branch fluconazole 2021-1 Yes [id number] 200mg Take 1 [facility] 200 mg 2-08 tablet by [facility] of tablet 00:00: mouth in [place] the Medical morning. Branch fluconazole 2021-1 Yes [id number] 200mg Take 1 [facility] 200 mg 2-08 tablet by [facility] of tablet 00:00: mouth in [place] the Medical morning. Branch fluconazole 2021-1 Yes [id number] 200mg Take 1 [facility] 200 mg 2-08 tablet by [facility] of tablet 00:00: mouth in [place] the Medical morning. Branch fluconazole 2021-1 Yes [id number] 200mg Take 1 [facility] 200 mg 2-08 tablet by [facility] of tablet 00:00: mouth in [place] the Medical morning. Branch fluconazole 2021-1 Yes [id number] 200mg Take 1 [facility] 200 mg 2-08 tablet by [facility] of tablet 00:00: mouth in [place] the Medical morning. Branch fluconazole 2021-1 Yes [id number] 200mg Take 1 [facility] 200 mg 2-08 tablet by [facility] of tablet 00:00: mouth in [place] the Medical morning. Branch fluconazole 2021-1 Yes [id number] 200mg Take 1 [facility] 200 mg 2-08 tablet by [facility] of tablet 00:00: mouth in [place] the Medical morning. Branch fluconazole 2021-1 Yes [id number] 200mg Take 1 [facility] 200 mg 2-08 tablet by [facility] of tablet 00:00: mouth in [place] the Medical morning. Branch fluconazole 2021-1 Yes [id number] 200mg Take 1 [facility] 200 mg 2-08 tablet by [facility] of tablet 00:00: mouth in [place] the Medical morning. Branch fluconazole 2021-1 Yes [id number] 200mg Take 1 [facility] 200 mg 2-08 tablet by [facility] of tablet 00:00: mouth in [place] the Medical morning. Branch fluconazole 2021-1 Yes [id number] 200mg Take 1 [facility] 200 mg 2-08 tablet by [facility] of tablet 00:00: mouth in [place] the Medical morning. Branch fluconazole 2021-1 Yes [id number] 200mg Take 1 [facility] 200 mg 2-08 tablet by [facility]y of tablet 00:00: mouth in [place] 00 the Medical morning. Branch fluconazole 2021-1 Yes [id number] 200mg Take 1 [facility] 200 mg 2-08 tablet by [facility] of tablet 00:00: mouth in [place] the Medical morning. Branch fluconazole 2021- Yes [id number] 200mg Take 1 [facility] 200 mg 2-08 tablet by [facility] of tablet 00:00: mouth in [place] the Medical morning. Branch fluconazole 2021-1 Yes [id number] 200mg Take 1 [facility] 200 mg 2-08 tablet by [facility] of tablet 00:00: mouth in [place] the Medical morning. Branch fluconazole 2021- Yes [id number] 200mg Take 1 [facility] 200 mg 2-08 tablet by [facility] of tablet 00:00: mouth in [place] the Medical morning. Branch fluconazole 2021-1 Yes [id number] 200mg Take 1 [facility] 200 mg 2-08 tablet by [facility] of tablet 00:00: mouth in [place] the Medical morning. Branch fluconazole 2021-1 Yes [id number] 200mg Take 1 [facility] 200 mg 2-08 tablet by [facility] of tablet 00:00: mouth in [place] the Medical morning. Branch fluconazole 2021- Yes [id number] 200mg Take 1 [facility] 200 mg 2-08 tablet by [facility] of tablet 00:00: mouth in [place] the Medical morning. Branch fluconazole 2021-1 Yes [id number] 200mg Take 1 [facility] 200 mg 2-08 tablet by [facility] of tablet 00:00: mouth in [place] the Medical morning. Branch fluconazole 2021-1 Yes [id number] 200mg Take 1 [facility] 200 mg 2-08 tablet by [facility] of tablet 00:00: mouth in [place] the Medical morning. Branch fluconazole 2021-1 Yes [id number] 200mg Take 1 [facility] 200 mg 2-08 tablet by [facility] of tablet 00:00: mouth in [place] the Medical morning. Branch fluconazole 2021-1 Yes [id number] 200mg Take 1 [facility] 200 mg 2-08 tablet by [facility] of tablet 00:00: mouth in [place] the Medical morning. Branch fluconazole 2021-1 Yes [id number] 200mg Take 1 [facility] 200 mg 2-08 tablet by [facility] of tablet 00:00: mouth in [place] the Medical morning. Branch fluconazole 2021-1 Yes [id number] 200mg Take 1 [facility] 200 mg 2-08 tablet by [facility] of tablet 00:00: mouth in [place] the Medical morning. Branch fluconazole 2021-1 Yes [id number] 200mg Take 1 [facility] 200 mg 2-08 tablet by [facility] of tablet 00:00: mouth in [place] the Medical morning. Branch fluconazole 2021-1 Yes [id number] 200mg Take 1 [facility] 200 mg 2-08 tablet by [facility] of tablet 00:00: mouth in [place] the Medical morning. Branch fluconazole 2021-1 Yes [id number] 200mg Take 1 [facility] 200 mg 2-08 tablet by [facility] of tablet 00:00: mouth in [place] the Medical morning. Branch fluconazole 2021-1 Yes [id number] 200mg Take 1 [facility] 200 mg 2-08 tablet by [facility] of tablet 00:00: mouth in [place] the Medical morning. Branch fluconazole 2021-1 Yes [id number] 200mg Take 1 [facility] 200 mg 2-08 tablet by [facility] of tablet 00:00: mouth in [place] the Medical morning. Branch fluconazole 2021- Yes [id number] 200mg Take 1 [facility] 200 mg 2-08 tablet by [facility] of tablet 00:00: mouth in [place] the Medical morning. Branch fluconazole 2021- Yes [id number] 200mg Take 1 [facility] 200 mg 2-08 tablet by [facility] of tablet 00:00: mouth in [place] the Medical morning. Branch fluconazole 2021-1 Yes [id number] 200mg Take 1 [facility] 200 mg 2-08 tablet by [facility] of tablet 00:00: mouth in [place] the Medical morning. Branch fluconazole 2021-1 Yes [id number] 200mg Take 1 [facility] 200 mg 2-08 tablet by [facility] of tablet 00:00: mouth in [place] the Medical morning. Branch fluconazole 2021-1 Yes [id number] 200mg Take 1 [facility] 200 mg 2-08 tablet by [facility] of tablet 00:00: mouth in [place] the Medical morning. Branch fluconazole 2021-1 Yes [id number] 200mg Take 1 [facility] 200 mg 2-08 tablet by [facility] of tablet 00:00: mouth in [place] the Medical morning. Branch fluconazole 2021-1 Yes [id number] 200mg Take 1 [facility] 200 mg 2-08 tablet by [facility] of tablet 00:00: mouth in [place] the Medical morning. Branch fluconazole 2021-1 Yes [id number] 200mg Take 1 [facility] 200 mg 2-08 tablet by [facility] of tablet 00:00: mouth in [place] the Medical morning. Branch fluconazole 2021- Yes [id number] 200mg Take 1 [facility] 200 mg 2-08 tablet by [facility] of tablet 00:00: mouth in [place] the Medical morning. Branch fluconazole 2021-1 Yes [id number] 200mg Take 1 [facility] 200 mg 2-08 tablet by [facility] of tablet 00:00: mouth in [place] the Medical morning. Branch fluconazole 2021-1 Yes [id number] 200mg Take 1 [facility] 200 mg 2-08 tablet by [facility] of tablet 00:00: mouth in [place] the Medical morning. Branch fluconazole 2021-1 Yes [id number] 200mg Take 1 [facility] 200 mg 2-08 tablet by [facility] of tablet 00:00: mouth in [place] the Medical morning. Branch fluconazole 2021-1 Yes [id number] 200mg Take 1 [facility] 200 mg 2-08 tablet by [facility] of tablet 00:00: mouth in [place] the Medical morning. Branch fluconazole 2021-1 Yes [id number] 200mg Take 1 [facility] 200 mg 2-08 tablet by [facility] of tablet 00:00: mouth in [place] the Medical morning. Branch fluconazole 2021-1 Yes [id number] 200mg Take 1 [facility] 200 mg 2-08 tablet by [facility] of tablet 00:00: mouth in [place] the Medical morning. Branch fluconazole 2021-1 Yes [id number] 200mg Take 1 [facility] 200 mg 2-08 tablet by [facility] of tablet 00:00: mouth in [place] the Medical morning. Branch fluconazole 2021-1 Yes [id number] 200mg Take 1 [facility] 200 mg 2-08 tablet by [facility] of tablet 00:00: mouth in [place] the Medical morning. Branch fluconazole 2021-1 Yes [id number] 200mg Take 1 [facility] 200 mg 2-08 tablet by [facility] of tablet 00:00: mouth in [place] the Medical morning. Branch fluconazole 2021-1 Yes [id number] 200mg Take 1 [facility] 200 mg 2-08 tablet by [facility] of tablet 00:00: mouth in [place] the Medical morning. Branch fluconazole 2021-1 Yes [id number] 200mg Take 1 [facility] 200 mg 2-08 tablet by [facility] of tablet 00:00: mouth in [place] the Medical morning. Branch fluconazole 2021-1 Yes [id number] 200mg Take 1 [facility] 200 mg 2-08 tablet by [facility] of tablet 00:00: mouth in [place] 00 the Medical morning. [place] fluconazole 2021-08- No [id number] 200mg Take 1 [facility] 200 mg 2-08 05-18 tablet by [facility] of tablet 00:00: 00:00 mouth in [place] 00 :00 the Medical morning. [place] fluconazole 2021-08- No [id number] 200mg Take 1 [facility] 200 mg 2-08 05-18 tablet by ity of tablet 00:00: 00:00 mouth in [place] 00 :00 the Medical morning. [place] fluconazole 2021-08- No [id number] 200mg Take 1 [facility] 200 mg 2-08 -18 tablet by ity of tablet 00:00: 00:00 mouth in [place] 00 :00 the Medical morning. [place] terconazole 2021-08 Yes [id number] 1{appli Insert 1 [facility] 0.4 % 2-07 cator} Applicator ity of vaginal 00:00: into [place] cream 00 vagina at Medical bedtime. [place] terconazole 2021-08 Yes [id number] 1{appli Insert 1 [facility] 0.4 % 2-07 cator} Applicator ity of vaginal 00:00: into [place] cream 00 vagina at Medical bedtime. [place] terconazole 2021-08 Yes [id number] 1{appli Insert 1 [facility] 0.4 % 2-07 cator} Applicator [facility]y of vaginal 00:00: into [place] cream 00 vagina at Medical bedtime. [place] terconazole 2021-08 Yes [id number] 1{appli Insert 1 [facility] 0.4 % 2-07 cator} Applicator ity of vaginal 00:00: into [place] cream 00 vagina at Medical bedtime. [place] terconazole 2021-08 Yes [id number] 1{appli Insert 1 [facility] 0.4 % 2-07 cator} Applicator ity of vaginal 00:00: into [place] cream 00 vagina at Medical bedtime. [place] terconazole 2021-08- No [id number] 1{appli Insert 1 [facility] 0.4 % 2-07 08-02 cator} Applicator ity o f vaginal 00:00: 00:00 into [place] cream 00 :00 vagina at Medical bedtime. [place] terconazole 2021-08- No [id number] 1{appli Insert 1 [facility] 0.4 % 2-07 08-02 cator} Applicator ity o f vaginal 00:00: 00:00 into [place] cream 00 :00 vagina at Medical bedtime. Branch NuvaRing 2021-08 Yes [id number] 1{each} Insert 1 [facility] 0.12-0.015 1-22 Each into ity of mg/24 hr 00:00: vagina [place] vaginal 00 once every Medica l insert month. Branch Insert vaginally and leave in place for 3 consecutiv e weeks, then remove for 1 week. NuvaRing 2021-08 Yes [id number] 1{each} Insert 1 [facility] 0.12-0.015 1-22 Each into ity of mg/24 hr 00:00: vagina [place] vaginal 00 once every Medica l insert month. Branch Insert vaginally and leave in place for 3 consecutiv e weeks, then remove for 1 week. NuvaRing 2021-08 Yes [id number] 1{each} Insert 1 [facility] 0.12-0.015 1-22 Each into ity of mg/24 hr 00:00: vagina [place] vaginal 00 once every Medica l insert month. Branch Insert vaginally and leave in place for 3 consecutiv e weeks, then remove for 1 week. NuvaRing 2021-08 Yes [id number] 1{each} Insert 1 [facility] 0.12-0.015 1-22 Each into ity of mg/24 hr 00:00: vagina [place] vaginal 00 once every Medica l insert month. Branch Insert vaginally and leave in place for 3 consecutiv e weeks, then remove for 1 week. NuvaRing 2021-08 Yes [id number] 1{each} Insert 1 [facility] 0.12-0.015 1-22 Each into ity of mg/24 hr 00:00: vagina [place] vaginal 00 once every Medica l insert month. Branch Insert vaginally and leave in place for 3 consecutiv e weeks, then remove for 1 week. NuvaRing 2021-08 Yes [id number] 1{each} Insert 1 [facility] 0.12-0.015 1-22 Each into ity of mg/24 hr 00:00: vagina [place] vaginal 00 once every Medica l insert month. Branch Insert vaginally and leave in place for 3 consecutiv e weeks, then remove for 1 week. NuvaRing 2021-08 Yes [id number] 1{each} Insert 1 [facility] 0.12-0.015 1-22 Each into ity of mg/24 hr 00:00: vagina [place] vaginal 00 once every Medica l insert month. Branch Insert vaginally and leave in place for 3 consecutiv e weeks, then remove for 1 week. NuvaRing 2021-08 Yes [id number] 1{each} Insert 1 [facility] 0.12-0.015 1-22 Each into ity of mg/24 hr 00:00: vagina [place] vaginal 00 once every Medica l insert month. Branch Insert vaginally and leave in place for 3 consecutiv e weeks, then remove for 1 week. NuvaRing 2021-08 Yes [id number] 1{each} Insert 1 [facility] 0.12-0.015 1-22 Each into ity of mg/24 hr 00:00: vagina [place] vaginal 00 once every Medica l insert month. Branch Insert vaginally and leave in place for 3 consecutiv e weeks, then remove for 1 week. NuvaRing 2021-08 Yes [id number] 1{each} Insert 1 [facility] 0.12-0.015 1-22 Each into ity of mg/24 hr 00:00: vagina [place] vaginal 00 once every Medica l insert month. Branch Insert vaginally and leave in place for 3 consecutiv e weeks, then remove for 1 week. NuvaRing 2021-08 Yes [id number] 1{each} Insert 1 [facility] 0.12-0.015 1-22 Each into ity of mg/24 hr 00:00: vagina [place] vaginal 00 once every Medica l insert month. Branch Insert vaginally and leave in place for 3 consecutiv e weeks, then remove for 1 week. NuvaRing 2021-08 Yes [id number] 1{each} Insert 1 [facility] 0.12-0.015 1-22 Each into ity of mg/24 hr 00:00: vagina [place] vaginal 00 once every Medica l insert month. Branch Insert vaginally and leave in place for 3 consecutiv e weeks, then remove for 1 week. NuvaRing 2021-08 Yes [id number] 1{each} Insert 1 [facility] 0.12-0.015 1-22 Each into ity of mg/24 hr 00:00: vagina [place] vaginal 00 once every Medica l insert month. Branch Insert vaginally and leave in place for 3 consecutiv e weeks, then remove for 1 week. NuvaRing 2021-08 Yes [id number] 1{each} Insert 1 [facility] 0.12-0.015 1-22 Each into ity of mg/24 hr 00:00: vagina [place] vaginal 00 once every Medica l insert month. Branch Insert vaginally and leave in place for 3 consecutiv e weeks, then remove for 1 week. NuvaRing 2021-08 Yes [id number] 1{each} Insert 1 [facility] 0.12-0.015 1-22 Each into ity of mg/24 hr 00:00: vagina [place] vaginal 00 once every Medica l insert month. Branch Insert vaginally and leave in place for 3 consecutiv e weeks, then remove for 1 week. NuvaRing 2021-08 Yes [id number] 1{each} Insert 1 [facility] 0.12-0.015 1-22 Each into ity of mg/24 hr 00:00: vagina [place] vaginal 00 once every Medica l insert month. Branch Insert vaginally and leave in place for 3 consecutiv e weeks, then remove for 1 week. NuvaRing 2021-08 Yes [id number] 1{each} Insert 1 [facility] 0.12-0.015 1-22 Each into ity of mg/24 hr 00:00: vagina [place] vaginal 00 once every Medica l insert month. Branch Insert vaginally and leave in place for 3 consecutiv e weeks, then remove for 1 week. NuvaRing 2021-08 Yes [id number] 1{each} Insert 1 [facility] 0.12-0.015 1-22 Each into ity of mg/24 hr 00:00: vagina [place] vaginal 00 once every Medica l insert month. Branch Insert vaginally and leave in place for 3 consecutiv e weeks, then remove for 1 week. NuvaRing 2021-08 Yes [id number] 1{each} Insert 1 [facility] 0.12-0.015 1-22 Each into ity of mg/24 hr 00:00: vagina [place] vaginal 00 once every Medica l insert month. Branch Insert vaginally and leave in place for 3 consecutiv e weeks, then remove for 1 week. NuvaRing 2021-08 Yes [id number] 1{each} Insert 1 [facility] 0.12-0.015 1-22 Each into ity of mg/24 hr 00:00: vagina [place] vaginal 00 once every Medica l insert month. Branch Insert vaginally and leave in place for 3 consecutiv e weeks, then remove for 1 week. NuvaRing 2021-08 Yes [id number] 1{each} Insert 1 [facility] 0.12-0.015 1-22 Each into ity of mg/24 hr 00:00: vagina [place] vaginal 00 once every Medica l insert month. Branch Insert vaginally and leave in place for 3 consecutiv e weeks, then remove for 1 week. NuvaRing 2021-08 Yes [id number] 1{each} Insert 1 [facility] 0.12-0.015 1-22 Each into ity of mg/24 hr 00:00: vagina [place] vaginal 00 once every Medica l insert month. Branch Insert vaginally and leave in place for 3 consecutiv e weeks, then remove for 1 week. NuvaRing 2021-08 Yes [id number] 1{each} Insert 1 [facility] 0.12-0.015 1-22 Each into ity of mg/24 hr 00:00: vagina [place] vaginal 00 once every Medica l insert month. Branch Insert vaginally and leave in place for 3 consecutiv e weeks, then remove for 1 week. NuvaRing 2021-08 Yes [id number] 1{each} Insert 1 [facility] 0.12-0.015 1-22 Each into ity of mg/24 hr 00:00: vagina [place] vaginal 00 once every Medica l insert month. Branch Insert vaginally and leave in place for 3 consecutiv e weeks, then remove for 1 week. NuvaRing 2021-08 Yes [id number] 1{each} Insert 1 [facility] 0.12-0.015 1-22 Each into ity of mg/24 hr 00:00: vagina [place] vaginal 00 once every Medica l insert month. Branch Insert vaginally and leave in place for 3 consecutiv e weeks, then remove for 1 week. NuvaRing 2021-08 Yes [id number] 1{each} Insert 1 [facility] 0.12-0.015 1-22 Each into ity of mg/24 hr 00:00: vagina [place] vaginal 00 once every Medica l insert month. Branch Insert vaginally and leave in place for 3 consecutiv e weeks, then remove for 1 week. NuvaRing 2021-08 Yes [id number] 1{each} Insert 1 [facility] 0.12-0.015 1-22 Each into ity of mg/24 hr 00:00: vagina [place] vaginal 00 once every Medica l insert month. Branch Insert vaginally and leave in place for 3 consecutiv e weeks, then remove for 1 week. NuvaRing 2021-08 Yes [id number] 1{each} Insert 1 [facility] 0.12-0.015 1-22 Each into ity of mg/24 hr 00:00: vagina [place] vaginal 00 once every Medica l insert month. Branch Insert vaginally and leave in place for 3 consecutiv e weeks, then remove for 1 week. NuvaRing 2021-08 Yes [id number] 1{each} Insert 1 [facility] 0.12-0.015 1-22 Each into ity of mg/24 hr 00:00: vagina [place] vaginal 00 once every Medica l insert month. Branch Insert vaginally and leave in place for 3 consecutiv e weeks, then remove for 1 week. NuvaRing 2021-08 Yes [id number] 1{each} Insert 1 [facility] 0.12-0.015 1-22 Each into ity of mg/24 hr 00:00: vagina [place] vaginal 00 once every Medica l insert month. Branch Insert vaginally and leave in place for 3 consecutiv e weeks, then remove for 1 week. NuvaRing 2021-08 Yes [id number] 1{each} Insert 1 [facility] 0.12-0.015 1-22 Each into ity of mg/24 hr 00:00: vagina [place] vaginal 00 once every Medica l insert month. Branch Insert vaginally and leave in place for 3 consecutiv e weeks, then remove for 1 week. NuvaRing 2021-08 Yes [id number] 1{each} Insert 1 [facility] 0.12-0.015 1-22 Each into ity of mg/24 hr 00:00: vagina [place] vaginal 00 once every Medica l insert month. Branch Insert vaginally and leave in place for 3 consecutiv e weeks, then remove for 1 week. NuvaRing 2021-08 Yes [id number] 1{each} Insert 1 [facility] 0.12-0.015 1-22 Each into ity of mg/24 hr 00:00: vagina [place] vaginal 00 once every Medica l insert month. Branch Insert vaginally and leave in place for 3 consecutiv e weeks, then remove for 1 week. NuvaRing 2021-08 Yes [id number] 1{each} Insert 1 [facility] 0.12-0.015 1-22 Each into ity of mg/24 hr 00:00: vagina [place] vaginal 00 once every Medica l insert month. Branch Insert vaginally and leave in place for 3 consecutiv e weeks, then remove for 1 week. NuvaRing 2021-08 Yes [id number] 1{each} Insert 1 [facility] 0.12-0.015 1-22 Each into ity of mg/24 hr 00:00: vagina [place] vaginal 00 once every Medica l insert month. Branch Insert vaginally and leave in place for 3 consecutiv e weeks, then remove for 1 week. NuvaRing 2021-08 Yes [id number] 1{each} Insert 1 [facility] 0.12-0.015 1-22 Each into ity of mg/24 hr 00:00: vagina [place] vaginal 00 once every Medica l insert month. Branch Insert vaginally and leave in place for 3 consecutiv e weeks, then remove for 1 week. NuvaRing 2021-08 Yes [id number] 1{each} Insert 1 [facility] 0.12-0.015 1-22 Each into ity of mg/24 hr 00:00: vagina [place] vaginal 00 once every Medica l insert month. Branch Insert vaginally and leave in place for 3 consecutiv e weeks, then remove for 1 week. NuvaRing 2021-08 Yes [id number] 1{each} Insert 1 [facility] 0.12-0.015 1-22 Each into ity of mg/24 hr 00:00: vagina [place] vaginal 00 once every Medica l insert month. Branch Insert vaginally and leave in place for 3 consecutiv e weeks, then remove for 1 week. NuvaRing 2021-08 Yes [id number] 1{each} Insert 1 [facility] 0.12-0.015 1-22 Each into ity of mg/24 hr 00:00: vagina [place] vaginal 00 once every Medica l insert month. Branch Insert vaginally and leave in place for 3 consecutiv e weeks, then remove for 1 week. NuvaRing 2021-08 Yes [id number] 1{each} Insert 1 [facility] 0.12-0.015 1-22 Each into ity of mg/24 hr 00:00: vagina [place] vaginal 00 once every Medica l insert month. Branch Insert vaginally and leave in place for 3 consecutiv e weeks, then remove for 1 week. NuvaRing 2021-08 Yes [id number] 1{each} Insert 1 [facility] 0.12-0.015 1-22 Each into ity of mg/24 hr 00:00: vagina [place] vaginal 00 once every Medica l insert month. Branch Insert vaginally and leave in place for 3 consecutiv e weeks, then remove for 1 week. NuvaRing 2021-08 Yes [id number] 1{each} Insert 1 [facility] 0.12-0.015 1-22 Each into ity of mg/24 hr 00:00: vagina [place] vaginal 00 once every Medica l insert month. Branch Insert vaginally and leave in place for 3 consecutiv e weeks, then remove for 1 week. NuvaRing 2021-08 Yes [id number] 1{each} Insert 1 [facility] 0.12-0.015 1-22 Each into ity of mg/24 hr 00:00: vagina [place] vaginal 00 once every Medica l insert month. Branch Insert vaginally and leave in place for 3 consecutiv e weeks, then remove for 1 week. NuvaRing 2021-08 Yes [id number] 1{each} Insert 1 [facility] 0.12-0.015 1-22 Each into ity of mg/24 hr 00:00: vagina [place] vaginal 00 once every Medica l insert month. Branch Insert vaginally and leave in place for 3 consecutiv e weeks, then remove for 1 week. NuvaRing 2021-08 Yes [id number] 1{each} Insert 1 [facility] 0.12-0.015 1-22 Each into ity of mg/24 hr 00:00: vagina [place] vaginal 00 once every Medica l insert month. Branch Insert vaginally and leave in place for 3 consecutiv e weeks, then remove for 1 week. NuvaRing 2021-08 Yes [id number] 1{each} Insert 1 [facility] 0.12-0.015 1-22 Each into ity of mg/24 hr 00:00: vagina [place] vaginal 00 once every Medica l insert month. Branch Insert vaginally and leave in place for 3 consecutiv e weeks, then remove for 1 week. NuvaRing 2021-08 Yes [id number] 1{each} Insert 1 [facility] 0.12-0.015 1-22 Each into ity of mg/24 hr 00:00: vagina [place] vaginal 00 once every Medica l insert month. Branch Insert vaginally and leave in place for 3 consecutiv e weeks, then remove for 1 week. NuvaRing 2021-08 Yes [id number] 1{each} Insert 1 [facility] 0.12-0.015 1-22 Each into ity of mg/24 hr 00:00: vagina [place] vaginal 00 once every Medica l insert month. Branch Insert vaginally and leave in place for 3 consecutiv e weeks, then remove for 1 week. NuvaRing 2021-08 Yes [id number] 1{each} Insert 1 [facility] 0.12-0.015 1-22 Each into ity of mg/24 hr 00:00: vagina [place] vaginal 00 once every Medica l insert month. Branch Insert vaginally and leave in place for 3 consecutiv e weeks, then remove for 1 week. NuvaRing 2021-08 Yes [id number] 1{each} Insert 1 [facility] 0.12-0.015 1-22 Each into ity of mg/24 hr 00:00: vagina [place] vaginal 00 once every Medica l insert month. Branch Insert vaginally and leave in place for 3 consecutiv e weeks, then remove for 1 week. NuvaRing 2021-08 Yes [id number] 1{each} Insert 1 [facility] 0.12-0.015 1-22 Each into ity of mg/24 hr 00:00: vagina [place] vaginal 00 once every Medica l insert month. Branch Insert vaginally and leave in place for 3 consecutiv e weeks, then remove for 1 week. NuvaRing 2021-08 Yes [id number] 1{each} Insert 1 [facility] 0.12-0.015 1-22 Each into ity of mg/24 hr 00:00: vagina [place] vaginal 00 once every Medica l insert month. Branch Insert vaginally and leave in place for 3 consecutiv e weeks, then remove for 1 week. NuvaRing 2021-08 Yes [id number] 1{each} Insert 1 [facility] 0.12-0.015 1-22 Each into ity of mg/24 hr 00:00: vagina [place] vaginal 00 once every Medica l insert month. Branch Insert vaginally and leave in place for 3 consecutiv e weeks, then remove for 1 week. NuvaRing 2021-08 Yes [id number] 1{each} Insert 1 [facility] 0.12-0.015 1-22 Each into ity of mg/24 hr 00:00: vagina [place] vaginal 00 once every Medica l insert month. Branch Insert vaginally and leave in place for 3 consecutiv e weeks, then remove for 1 week. NuvaRing 2021-08 Yes [id number] 1{each} Insert 1 [facility] 0.12-0.015 1-22 Each into ity of mg/24 hr 00:00: vagina [place] vaginal 00 once every Medica l insert month. Branch Insert vaginally and leave in place for 3 consecutiv e weeks, then remove for 1 week. NuvaRing 2021-08 Yes [id number] 1{each} Insert 1 [facility] 0.12-0.015 1-22 Each into ity of mg/24 hr 00:00: vagina [place] vaginal 00 once every Medica l insert month. Branch Insert vaginally and leave in place for 3 consecutiv e weeks, then remove for 1 week. NuvaRing 2021-08 Yes [id number] 1{each} Insert 1 [facility] 0.12-0.015 1-22 Each into ity of mg/24 hr 00:00: vagina [place] vaginal 00 once every Medica l insert month. Branch Insert vaginally and leave in place for 3 consecutiv e weeks, then remove for 1 week. NuvaRing 2021-08 Yes [id number] 1{each} Insert 1 [facility] 0.12-0.015 1-22 Each into ity of mg/24 hr 00:00: vagina [place] vaginal 00 once every Medica l insert month. Branch Insert vaginally and leave in place for 3 consecutiv e weeks, then remove for 1 week. NuvaRing 2021-08 Yes [id number] 1{each} Insert 1 [facility] 0.12-0.015 1-22 Each into ity of mg/24 hr 00:00: vagina [place] vaginal 00 once every Medica l insert month. Branch Insert vaginally and leave in place for 3 consecutiv e weeks, then remove for 1 week. NuvaRing 2021-08 Yes [id number] 1{each} Insert 1 [facility] 0.12-0.015 1-22 Each into ity of mg/24 hr 00:00: vagina [place] vaginal 00 once every Medica l insert month. Branch Insert vaginally and leave in place for 3 consecutiv e weeks, then remove for 1 week. NuvaRing 2021-08 Yes [id number] 1{each} Insert 1 [facility] 0.12-0.015 1-22 Each into ity of mg/24 hr 00:00: vagina [place] vaginal 00 once every Medica l insert month. Branch Insert vaginally and leave in place for 3 consecutiv e weeks, then remove for 1 week. NuvaRing 2021-08 Yes [id number] 1{each} Insert 1 [facility] 0.12-0.015 1-22 Each into ity of mg/24 hr 00:00: vagina [place] vaginal 00 once every Medica l insert month. Branch Insert vaginally and leave in place for 3 consecutiv e weeks, then remove for 1 week. NuvaRing 2021-08 Yes [id number] 1{each} Insert 1 [facility] 0.12-0.015 1-22 Each into ity of mg/24 hr 00:00: vagina [place] vaginal 00 once every Medica l insert month. Branch Insert vaginally and leave in place for 3 consecutiv e weeks, then remove for 1 week. NuvaRing 2021-08 Yes [id number] 1{each} Insert 1 [facility] 0.12-0.015 1-22 Each into ity of mg/24 hr 00:00: vagina [place] vaginal 00 once every Medica l insert month. Branch Insert vaginally and leave in place for 3 consecutiv e weeks, then remove for 1 week. NuvaRing 2021-08 Yes [id number] 1{each} Insert 1 [facility] 0.12-0.015 1-22 Each into ity of mg/24 hr 00:00: vagina [place] vaginal 00 once every Medica l insert month. Branch Insert vaginally and leave in place for 3 consecutiv e weeks, then remove for 1 week. NuvaRing 2021-08 Yes [id number] 1{each} Insert 1 [facility] 0.12-0.015 1-22 Each into ity of mg/24 hr 00:00: vagina [place] vaginal 00 once every Medica l insert month. Branch Insert vaginally and leave in place for 3 consecutiv e weeks, then remove for 1 week. NuvaRing 2021-08 Yes [id number] 1{each} Insert 1 [facility] 0.12-0.015 1-22 Each into ity of mg/24 hr 00:00: vagina [place] vaginal 00 once every Medica l insert month. Branch Insert vaginally and leave in place for 3 consecutiv e weeks, then remove for 1 week. NuvaRing 2021-08 Yes [id number] 1{each} Insert 1 [facility] 0.12-0.015 1-22 Each into ity of mg/24 hr 00:00: vagina [place] vaginal 00 once every Medica l insert month. Branch Insert vaginally and leave in place for 3 consecutiv e weeks, then remove for 1 week. NuvaRing 2021-08 Yes [id number] 1{each} Insert 1 [facility] 0.12-0.015 1-22 Each into ity of mg/24 hr 00:00: vagina [place] vaginal 00 once every Medica l insert month. Branch Insert vaginally and leave in place for 3 consecutiv e weeks, then remove for 1 week. NuvaRing 2021-08 Yes [id number] 1{each} Insert 1 [facility] 0.12-0.015 1-22 Each into ity of mg/24 hr 00:00: vagina [place] vaginal 00 once every Medica l insert month. Branch Insert vaginally and leave in place for 3 consecutiv e weeks, then remove for 1 week. NuvaRing 2021-08 Yes [id number] 1{each} Insert 1 [facility] 0.12-0.015 1-22 Each into ity of mg/24 hr 00:00: vagina [place] vaginal 00 once every Medica l insert month. Branch Insert vaginally and leave in place for 3 consecutiv e weeks, then remove for 1 week. NuvaRing 2021-08 Yes [id number] 1{each} Insert 1 [facility] 0.12-0.015 1-22 Each into ity of mg/24 hr 00:00: vagina [place] vaginal 00 once every Medica l insert month. Branch Insert vaginally and leave in place for 3 consecutiv e weeks, then remove for 1 week. NuvaRing 2021-08 Yes [id number] 1{each} Insert 1 [facility] 0.12-0.015 1-22 Each into ity of mg/24 hr 00:00: vagina [place] vaginal 00 once every Medica l insert month. Branch Insert vaginally and leave in place for 3 consecutiv e weeks, then remove for 1 week. NuvaRing 2021-08 Yes [id number] 1{each} Insert 1 [facility] 0.12-0.015 1-22 Each into ity of mg/24 hr 00:00: vagina [place] vaginal 00 once every Medica l insert month. Branch Insert vaginally and leave in place for 3 consecutiv e weeks, then remove for 1 week. NuvaRing 2021-08 Yes [id number] 1{each} Insert 1 [facility] 0.12-0.015 1-22 Each into ity of mg/24 hr 00:00: vagina [place] vaginal 00 once every Medica l insert month. Branch Insert vaginally and leave in place for 3 consecutiv e weeks, then remove for 1 week. NuvaRing 2021-08 Yes [id number] 1{each} Insert 1 [facility] 0.12-0.015 1-22 Each into ity of mg/24 hr 00:00: vagina [place] vaginal 00 once every Medica l insert month. Branch Insert vaginally and leave in place for 3 consecutiv e weeks, then remove for 1 week. NuvaRing 2021-08 Yes [id number] 1{each} Insert 1 [facility] 0.12-0.015 1-22 Each into ity of mg/24 hr 00:00: vagina [place] vaginal 00 once every Medica l insert month. Branch Insert vaginally and leave in place for 3 consecutiv e weeks, then remove for 1 week. NuvaRing 2021-08 Yes [id number] 1{each} Insert 1 [facility] 0.12-0.015 1-22 Each into ity of mg/24 hr 00:00: vagina [place] vaginal 00 once every Medica l insert month. Branch Insert vaginally and leave in place for 3 consecutiv e weeks, then remove for 1 week. NuvaRing 2021-08 Yes [id number] 1{each} Insert 1 [facility] 0.12-0.015 1-22 Each into ity of mg/24 hr 00:00: vagina [place] vaginal 00 once every Medica l insert month. Branch Insert vaginally and leave in place for 3 consecutiv e weeks, then remove for 1 week. NuvaRing 2021-08 Yes [id number] 1{each} Insert 1 [facility] 0.12-0.015 1-22 Each into ity of mg/24 hr 00:00: vagina [place] vaginal 00 once every Medica l insert month. Branch Insert vaginally and leave in place for 3 consecutiv e weeks, then remove for 1 week. NuvaRing 2021-08 Yes [id number] 1{each} Insert 1 [facility] 0.12-0.015 1-22 Each into ity of mg/24 hr 00:00: vagina [place] vaginal 00 once every Medica l insert month. Branch Insert vaginally and leave in place for 3 consecutiv e weeks, then remove for 1 week. NuvaRing 2021-08 Yes [id number] 1{each} Insert 1 [facility] 0.12-0.015 1-22 Each into ity of mg/24 hr 00:00: vagina [place] vaginal 00 once every Medica l insert month. Branch Insert vaginally and leave in place for 3 consecutiv e weeks, then remove for 1 week. NuvaRing 2021-08 Yes [id number] 1{each} Insert 1 [facility] 0.12-0.015 1-22 Each into ity of mg/24 hr 00:00: vagina [place] vaginal 00 once every Medica l insert month. Branch Insert vaginally and leave in place for 3 consecutiv e weeks, then remove for 1 week. NuvaRing 2021-08 Yes [id number] 1{each} Insert 1 [facility] 0.12-0.015 1-22 Each into ity of mg/24 hr 00:00: vagina [place] vaginal 00 once every Medica l insert month. Branch Insert vaginally and leave in place for 3 consecutiv e weeks, then remove for 1 week. NuvaRing 2021-08 Yes [id number] 1{each} Insert 1 [facility] 0.12-0.015 1-22 Each into ity of mg/24 hr 00:00: vagina [place] vaginal 00 once every Medica l insert month. Branch Insert vaginally and leave in place for 3 consecutiv e weeks, then remove for 1 week. NuvaRing 2021-08 Yes [id number] 1{each} Insert 1 [facility] 0.12-0.015 1-22 Each into ity of mg/24 hr 00:00: vagina [place] vaginal 00 once every Medica l insert month. Branch Insert vaginally and leave in place for 3 consecutiv e weeks, then remove for 1 week. NuvaRing 2021-08 Yes [id number] 1{each} Insert 1 [facility] 0.12-0.015 1-22 Each into ity of mg/24 hr 00:00: vagina [place] vaginal 00 once every Medica l insert month. Branch Insert vaginally and leave in place for 3 consecutiv e weeks, then remove for 1 week. NuvaRing 2021-08 Yes [id number] 1{each} Insert 1 [facility] 0.12-0.015 1-22 Each into ity of mg/24 hr 00:00: vagina [place] vaginal 00 once every Medica l insert month. Branch Insert vaginally and leave in place for 3 consecutiv e weeks, then remove for 1 week. NuvaRing 2021-08 Yes [id number] 1{each} Insert 1 [facility] 0.12-0.015 1-22 Each into ity of mg/24 hr 00:00: vagina [place] vaginal 00 once every Medica l insert month. Branch Insert vaginally and leave in place for 3 consecutiv e weeks, then remove for 1 week. NuvaRing 2021-08 Yes [id number] 1{each} Insert 1 [facility] 0.12-0.015 1-22 Each into ity of mg/24 hr 00:00: vagina [place] vaginal 00 once every Medica l insert month. Branch Insert vaginally and leave in place for 3 consecutiv e weeks, then remove for 1 week. NuvaRing 2021-08 Yes [id number] 1{each} Insert 1 [facility] 0.12-0.015 1-22 Each into ity of mg/24 hr 00:00: vagina [place] vaginal 00 once every Medica l insert month. Branch Insert vaginally and leave in place for 3 consecutiv e weeks, then remove for 1 week. NuvaRing 2021-08 Yes [id number] 1{each} Insert 1 [facility] 0.12-0.015 1-22 Each into ity of mg/24 hr 00:00: vagina [place] vaginal 00 once every Medica l insert month. Branch Insert vaginally and leave in place for 3 consecutiv e weeks, then remove for 1 week. NuvaRing 2021-08 Yes [id number] 1{each} Insert 1 [facility] 0.12-0.015 1-22 Each into ity of mg/24 hr 00:00: vagina [place] vaginal 00 once every Medica l insert month. Branch Insert vaginally and leave in place for 3 consecutiv e weeks, then remove for 1 week. NuvaRing 2021-08 Yes [id number] 1{each} Insert 1 [facility] 0.12-0.015 1-22 Each into ity of mg/24 hr 00:00: vagina [place] vaginal 00 once every Medica l insert month. Branch Insert vaginally and leave in place for 3 consecutiv e weeks, then remove for 1 week. NuvaRing 2021-08 Yes [id number] 1{each} Insert 1 [facility] 0.12-0.015 1-22 Each into ity of mg/24 hr 00:00: vagina [place] vaginal 00 once every Medica l insert month. Branch Insert vaginally and leave in place for 3 consecutiv e weeks, then remove for 1 week. NuvaRing 2021-08 Yes [id number] 1{each} Insert 1 [facility] 0.12-0.015 1-22 Each into ity of mg/24 hr 00:00: vagina [place] vaginal 00 once every Medica l insert month. Branch Insert vaginally and leave in place for 3 consecutiv e weeks, then remove for 1 week. NuvaRing 2021-08 Yes [id number] 1{each} Insert 1 [facility] 0.12-0.015 1-22 Each into ity of mg/24 hr 00:00: vagina [place] vaginal 00 once every Medica l insert month. Branch Insert vaginally and leave in place for 3 consecutiv e weeks, then remove for 1 week. NuvaRing 2021-08 Yes [id number] 1{each} Insert 1 [facility] 0.12-0.015 1-22 Each into ity of mg/24 hr 00:00: vagina [place] vaginal 00 once every Medica l insert month. Branch Insert vaginally and leave in place for 3 consecutiv e weeks, then remove for 1 week. NuvaRing 2021-08 Yes [id number] 1{each} Insert 1 [facility] 0.12-0.015 1-22 Each into ity of mg/24 hr 00:00: vagina [place] vaginal 00 once every Medica l insert month. Branch Insert vaginally and leave in place for 3 consecutiv e weeks, then remove for 1 week. NuvaRing 2021-08 Yes [id number] 1{each} Insert 1 [facility] 0.12-0.015 1-22 Each into ity of mg/24 hr 00:00: vagina [place] vaginal 00 once every Medica l insert month. Branch Insert vaginally and leave in place for 3 consecutiv e weeks, then remove for 1 week. NuvaRing 2021-08 Yes [id number] 1{each} Insert 1 [facility] 0.12-0.015 1-22 Each into ity of mg/24 hr 00:00: vagina [place] vaginal 00 once every Medica l insert month. Branch Insert vaginally and leave in place for 3 consecutiv e weeks, then remove for 1 week. NuvaRing 2021-08 Yes [id number] 1{each} Insert 1 [facility] 0.12-0.015 1-22 Each into ity of mg/24 hr 00:00: vagina [place] vaginal 00 once every Medica l insert month. Branch Insert vaginally and leave in place for 3 consecutiv e weeks, then remove for 1 week. NuvaRing 2021-08 Yes [id number] 1{each} Insert 1 [facility] 0.12-0.015 1-22 Each into ity of mg/24 hr 00:00: vagina [place] vaginal 00 once every Medica l insert month. Branch Insert vaginally and leave in place for 3 consecutiv e weeks, then remove for 1 week. NuvaRing 2021-08 Yes [id number] 1{each} Insert 1 [facility] 0.12-0.015 1-22 Each into ity of mg/24 hr 00:00: vagina [place] vaginal 00 once every Medica l insert month. Branch Insert vaginally and leave in place for 3 consecutiv e weeks, then remove for 1 week. NuvaRing 2021-08 Yes [id number] 1{each} Insert 1 [facility] 0.12-0.015 1-22 Each into ity of mg/24 hr 00:00: vagina [place] vaginal 00 once every Medica l insert month. Branch Insert vaginally and leave in place for 3 consecutiv e weeks, then remove for 1 week. NuvaRing 2021-08 Yes [id number] 1{each} Insert 1 [facility] 0.12-0.015 1-22 Each into ity of mg/24 hr 00:00: vagina [place] vaginal 00 once every Medica l insert month. Branch Insert vaginally and leave in place for 3 consecutiv e weeks, then remove for 1 week. NuvaRing 2021-08 Yes [id number] 1{each} Insert 1 [facility] 0.12-0.015 1-22 Each into ity of mg/24 hr 00:00: vagina [place] vaginal 00 once every Medica l insert month. Branch Insert vaginally and leave in place for 3 consecutiv e weeks, then remove for 1 week. NuvaRing 2021-08 Yes [id number] 1{each} Insert 1 [facility] 0.12-0.015 1-22 Each into ity of mg/24 hr 00:00: vagina [place] vaginal 00 once every Medica l insert month. Branch Insert vaginally and leave in place for 3 consecutiv e weeks, then remove for 1 week. NuvaRing 2021-08 Yes [id number] 1{each} Insert 1 [facility] 0.12-0.015 1-22 Each into ity of mg/24 hr 00:00: vagina [place] vaginal 00 once every Medica l insert month. Branch Insert vaginally and leave in place for 3 consecutiv e weeks, then remove for 1 week. NuvaRing 2021-08 Yes [id number] 1{each} Insert 1 [facility] 0.12-0.015 1-22 Each into ity of mg/24 hr 00:00: vagina [place] vaginal 00 once every Medica l insert month. Branch Insert vaginally and leave in place for 3 consecutiv e weeks, then remove for 1 week. NuvaRing 2021-08 Yes [id number] 1{each} Insert 1 [facility] 0.12-0.015 1-22 Each into ity of mg/24 hr 00:00: vagina [place] vaginal 00 once every Medica l insert month. Branch Insert vaginally and leave in place for 3 consecutiv e weeks, then remove for 1 week. NuvaRing 2021-08 Yes [id number] 1{each} Insert 1 [facility] 0.12-0.015 1-22 Each into ity of mg/24 hr 00:00: vagina [place] vaginal 00 once every Medica l insert month. Branch Insert vaginally and leave in place for 3 consecutiv e weeks, then remove for 1 week. NuvaRing 2021-08 Yes [id number] 1{each} Insert 1 [facility] 0.12-0.015 1-22 Each into ity of mg/24 hr 00:00: vagina [place] vaginal 00 once every Medica l insert month. Branch Insert vaginally and leave in place for 3 consecutiv e weeks, then remove for 1 week. NuvaRing 2021-08 Yes [id number] 1{each} Insert 1 [facility] 0.12-0.015 1-22 Each into ity of mg/24 hr 00:00: vagina [place] vaginal 00 once every Medica l insert month. Branch Insert vaginally and leave in place for 3 consecutiv e weeks, then remove for 1 week. NuvaRing 2021-08 Yes [id number] 1{each} Insert 1 [facility] 0.12-0.015 1-22 Each into ity of mg/24 hr 00:00: vagina [place] vaginal 00 once every Medica l insert month. Branch Insert vaginally and leave in place for 3 consecutiv e weeks, then remove for 1 week. NuvaRing 2021-08 Yes [id number] 1{each} Insert 1 [facility] 0.12-0.015 1-22 Each into ity of mg/24 hr 00:00: vagina [place] vaginal 00 once every Medica l insert month. Branch Insert vaginally and leave in place for 3 consecutiv e weeks, then remove for 1 week. NuvaRing 2021-08 Yes [id number] 1{each} Insert 1 [facility] 0.12-0.015 1-22 Each into ity of mg/24 hr 00:00: vagina [place] vaginal 00 once every Medica l insert month. Branch Insert vaginally and leave in place for 3 consecutiv e weeks, then remove for 1 week. NuvaRing 2021-08 Yes [id number] 1{each} Insert 1 [facility] 0.12-0.015 1-22 Each into ity of mg/24 hr 00:00: vagina [place] vaginal 00 once every Medica l insert month. Branch Insert vaginally and leave in place for 3 consecutiv e weeks, then remove for 1 week. NuvaRing 2021-08 Yes [id number] 1{each} Insert 1 [facility] 0.12-0.015 1-22 Each into ity of mg/24 hr 00:00: vagina [place] vaginal 00 once every Medica l insert month. Branch Insert vaginally and leave in place for 3 consecutiv e weeks, then remove for 1 week. NuvaRing 2021-08 Yes [id number] 1{each} Insert 1 [facility] 0.12-0.015 1-22 Each into ity of mg/24 hr 00:00: vagina [place] vaginal 00 once every Medica l insert month. Branch Insert vaginally and leave in place for 3 consecutiv e weeks, then remove for 1 week. NuvaRing 2021-08 Yes [id number] 1{each} Insert 1 [facility] 0.12-0.015 1-22 Each into ity of mg/24 hr 00:00: vagina [place] vaginal 00 once every Medica l insert month. Branch Insert vaginally and leave in place for 3 consecutiv e weeks, then remove for 1 week. NuvaRing 2021-08 Yes [id number] 1{each} Insert 1 [facility] 0.12-0.015 1-22 Each into ity of mg/24 hr 00:00: vagina [place] vaginal 00 once every Medica l insert month. Branch Insert vaginally and leave in place for 3 consecutiv e weeks, then remove for 1 week. NuvaRing 2021-08 Yes [id number] 1{each} Insert 1 [facility] 0.12-0.015 1-22 Each into ity of mg/24 hr 00:00: vagina [place] vaginal 00 once every Medica l insert month. Branch Insert vaginally and leave in place for 3 consecutiv e weeks, then remove for 1 week. NuvaRing 2021-08 Yes [id number] 1{each} Insert 1 [facility] 0.12-0.015 1-22 Each into ity of mg/24 hr 00:00: vagina [place] vaginal 00 once every Medica l insert month. Branch Insert vaginally and leave in place for 3 consecutiv e weeks, then remove for 1 week. NuvaRing 2021-08 Yes [id number] 1{each} Insert 1 [facility] 0.12-0.015 1-22 Each into ity of mg/24 hr 00:00: vagina [place] vaginal 00 once every Medica l insert month. Branch Insert vaginally and leave in place for 3 consecutiv e weeks, then remove for 1 week. NuvaRing 2021-08 Yes [id number] 1{each} Insert 1 [facility] 0.12-0.015 1-22 Each into ity of mg/24 hr 00:00: vagina [place] vaginal 00 once every Medica l insert month. Branch Insert vaginally and leave in place for 3 consecutiv e weeks, then remove for 1 week. NuvaRing 2021-08 Yes [id number] 1{each} Insert 1 [facility] 0.12-0.015 1-22 Each into ity of mg/24 hr 00:00: vagina [place] vaginal 00 once every Medica l insert month. Branch Insert vaginally and leave in place for 3 consecutiv e weeks, then remove for 1 week. NuvaRing 2021-08 Yes [id number] 1{each} Insert 1 [facility] 0.12-0.015 1-22 Each into ity of mg/24 hr 00:00: vagina [place] vaginal 00 once every Medica l insert month. Branch Insert vaginally and leave in place for 3 consecutiv e weeks, then remove for 1 week. NuvaRing 2021-08 Yes [id number] 1{each} Insert 1 [facility] 0.12-0.015 1-22 Each into ity of mg/24 hr 00:00: vagina [place] vaginal 00 once every Medica l insert month. Branch Insert vaginally and leave in place for 3 consecutiv e weeks, then remove for 1 week. NuvaRing 2021-08 Yes [id number] 1{each} Insert 1 [facility] 0.12-0.015 1-22 Each into ity of mg/24 hr 00:00: vagina [place] vaginal 00 once every Medica l insert month. Branch Insert vaginally and leave in place for 3 consecutiv e weeks, then remove for 1 week. NuvaRing 2021-08 Yes [id number] 1{each} Insert 1 [facility] 0.12-0.015 1-22 Each into ity of mg/24 hr 00:00: vagina [place] vaginal 00 once every Medica l insert month. Branch Insert vaginally and leave in place for 3 consecutiv e weeks, then remove for 1 week. NuvaRing 2021-08 Yes [id number] 1{each} Insert 1 [facility] 0.12-0.015 1-22 Each into ity of mg/24 hr 00:00: vagina [place] vaginal 00 once every Medica l insert month. Branch Insert vaginally and leave in place for 3 consecutiv e weeks, then remove for 1 week. NuvaRing 2021-08 Yes [id number] 1{each} Insert 1 [facility] 0.12-0.015 1-22 Each into ity of mg/24 hr 00:00: vagina [place] vaginal 00 once every Medica l insert month. Branch Insert vaginally and leave in place for 3 consecutiv e weeks, then remove for 1 week. NuvaRing 2021-08 Yes [id number] 1{each} Insert 1 [facility] 0.12-0.015 09-03 Each into ity of mg/24 hr 00:00: vagina [place] vaginal 00 once every Medica l insert month. Branch Insert vaginally and leave in place for 3 consecutiv e weeks, then remove for 1 week. NuvaRing 2021-08- No [id number] 1{each} Insert 1 [facility] 0.12-0.015 09-03 Each into ity of mg/24 hr 00:00: 00:00 vagina [place] vaginal 00 :00 once every Medica l insert month. Branch Insert vaginally and leave in place for 3 consecutiv e weeks, then remove for 1 week. NuvaRing 2021-08- No [id number] 1{each} Insert 1 [facility] 0.12-0.015 09-03 Each into ity of mg/24 hr 00:00: 00:00 vagina [place] vaginal 00 :00 once every Medica l insert month. Branch Insert vaginally and leave in place for 3 consecutiv e weeks, then remove for 1 week. NuvaRing 2021-08- No [id number] 1{each} Insert 1 [facility] 0.12-0.015 09-03 Each into ity of mg/24 hr 00:00: 00:00 vagina [place] vaginal 00 :00 once every Medica l insert month. Branch Insert vaginally and leave in place for 3 consecutiv e weeks, then remove for 1 week. NuvaRing 2021-08- No [id number] 1{each} Insert 1 [facility] 0.12-0.015 09-03 Each into ity of mg/24 hr 00:00: 00:00 vagina [place] vaginal 00 :00 once every Medica l insert month. Branch Insert vaginally and leave in place for 3 consecutiv e weeks, then remove for 1 week. NuvaRing 2021-08- No [id number] 1{each} Insert 1 [facility] 0.12-0.015 09-03- Each into ity of mg/24 hr 00:00: 00:00 vagina [place] vaginal 00 :00 once every Medica l insert month. Branch Insert vaginally and leave in place for 3 consecutiv e weeks, then remove for 1 week. lactated 2021-08- No [id number] 500mL Uni vers ringers IV 08-30-18 ity of infusion 21:45: 20:39 [place] 500 mL 00 :00 Medical Branch lactated 2021-08- No [id number] 500mL at 20 Un joby ringers IV 08-3018 mL/hr, 500 it y of infusion 21:45: 20:39 mL, IV [place] 500 mL 00 :00 Infusion, Medical ONCE, 1 Branch dose, On Sun06/30/22 at 1545, Routine lactated 2021-08- No [id number] 500mL Uni vers ringers IV 08-30 ity of infusion 21:45: 20:39 [place] 500 mL 00 :00 Medical Branch lactated 2021-08- No [id number] 500mL at 20 Un joby ringers IV 08-30 mL/hr, 500 it y of infusion 21:45: 20:39 mL, IV [place] 500 mL 00 :00 Infusion, Medical ONCE, 1 Branch dose, On Sun06/30/22 at 1545, Routine lidocaine 2021-08- No [id number] 10mL Uni vers 1% (PF) 08-30 ity of (XYLOCAINE) 20:37: 20:37 [place] injection 00 :00 Medical 10 mL Branch triamcinolo 2021-08- No [id number] 80mg U nivers ne 08-30 ity of acetonide 20:37: 20:38 [place] (KENALOG) 00 :00 Medical injection Branch 80 mg triamcinolo 2021-08- No [id number] 80mg 80 mg, Univers ne 08-30 Infiltrati ity of acetonide 20:37: 20:38 [place], [place] (KE[place] 00 :00 1 dose, On Medi nirmal injection Fri Branch 80 mg 06/30/22 at 1445, Routine lidocaine 2021-08- No [id number] 10mL 10 mL, U nivers 1% (PF) 08-30 Infiltrati ity o f (XYLOCAINE) 20:37: 20:37 on, ONCE, [place] injection 00 :00 1 dose, On Medi nirmal 10 mL Fri Branch 06/30/22 at 1445, Routine lidocaine 2021-08- No [id number] 10mL Uni vers 1% (PF) 08-30 ity of (XYLOCAINE) 20:37: 20:37 [place] injection 00 :00 Medical 10 mL Branch triamcinolo 2021-08- No [id number] 80mg [facility] n[facility] ne 08-30 ity of acetonide 20:37: 20:38 [place] (KENALOG) 00 :00 Medical injection Branch 80 mg triamcinolo 2021-08- No [id number] 80mg 80 mg, [facility] ne 08-30 Infiltrati ity of acetonide 20:37: 20:38 [place] 00 :00 1 dose, On Medi nirmal injection Fri Branch 80 mg 06/30/22 at 1445, Routine lidocaine 2021-08- No [id number] 10mL 10 mL, [facility] n[facility] 1% (PF) 08-30 Infiltrati ity o f (XYLOCAINE) 20:37: 20:37 on, ONCE, [place] injection 00 :00 1 dose, On Medi nirmal 10 mL Fri Branch 06/30/22 at 1445, Routine bupivacaine 2021-08- No [id number] 4mL U nivers (preserv 08-30 ity of free) 20:36: 20:38 [place] (SENSORCAIN 00 :00 Medical E MPF) 0.25 Branch % (2.5 mg/mL) injection 4 mL bupivacaine 2021-08- No [id number] 4mL 4 mL, Univers (preserv 08-30 Infiltrati ity of free) 20:36: 20:38 on, ONCE, [place] (SENSORCAIN 00 :00 1 dose, On Me dical E MPF) 0.25 Fri Branch % (2.5 06/30/22 mg/mL) at 1445, injection 4 Routine mL bupivacaine 2021-08- No [id number] 4mL U nivers (preserv 08-30 ity of free) 20:36: 20:38 [place] (SENSORCAIN 00 :00 Medical E MPF) 0.25 Branch % (2.5 mg/mL) injection 4 mL bupivacaine 2021-08- No [id number] 4mL 4 mL, Univers (preserv -18 -18 Infiltrati ity of free) 20:36: 20:38 on, ONCE, [place] (SENSORCAIN 00 :00 1 dose, On Me dical E MPF) 0.25 Fri Branch % (2.5 06/30/22 mg/mL) at 1445, injection 4 Routine mL HYDROXYZINE 2021-08 Yes [id number] TAKE 1 [facility] 25 mg 1-16 TABLET BY ity of tablet 00:00: MOUTH 00 EVERY 8 Medical HOURS Branch NEEDED FOR ITCHING PROMETHAZIN 2021-08 Yes [id number] TAKE 1 [facility] E 12.5 mg 1-16 TABLET BY ity o f tablet 00:00: MOUTH DAILY Medical NEEDED FOR Branch NAUSEA AND VOMITING HYDROXYZINE 2021-08 Yes [id number] TAKE 1 [facility] 25 mg 1-16 TABLET BY ity of tablet 00:00: MOUTH 00 EVERY 8 Medical HOURS Branch NEEDED FOR ITCHING PROMETHAZIN 2021-08 Yes [id number] TAKE 1 [facility] E 12.5 mg 1-16 TABLET BY ity o f tablet 00:00: MOUTH ONCE 00 DAILY Medical NEEDED FOR Branch NAUSEA AND VOMITING HYDROXYZINE 2021-08 Yes [id number] TAKE 1 [facility] 25 mg 1-16 TABLET BY ity of tablet 00:00: MOUTH 00 EVERY 8 Medical HOURS Branch NEEDED FOR ITCHING PROMETHAZIN 2021-08 Yes [id number] TAKE 1 [facility] E 12.5 mg 1-16 TABLET BY ity o f tablet 00:00: MOUTH DAILY Medical NEEDED FOR Branch NAUSEA AND VOMITING HYDROXYZINE 2021-08 Yes [id number] TAKE 1 [facility] 25 mg 1-16 TABLET BY ity of tablet 00:00: MOUTH 00 EVERY 8 Medical HOURS Branch NEEDED FOR ITCHING PROMETHAZIN 2021-08 Yes [id number] TAKE 1 [facility] E 12.5 mg 1-16 TABLET BY ity o f tablet 00:00: MOUTH ONCE 00 DAILY Medical NEEDED FOR Branch NAUSEA AND VOMITING HYDROXYZINE 2021-08 Yes [id number] TAKE 1 [facility] 25 mg 1-16 TABLET BY ity of tablet 00:00: MOUTH 00 EVERY 8 Medical HOURS Branch NEEDED FOR ITCHING PROMETHAZIN 2021-08 Yes [id number] TAKE 1 [facility] E 12.5 mg 1-16 TABLET BY ity o f tablet 00:00: MOUTH ONCE [place] 00 DAILY Medical NEEDED FOR Branch NAUSEA AND VOMITING HYDROXYZINE 2021- Yes [id number] TAKE 1 [facility] 25 mg 1-16 TABLET BY ity of tablet 00:00: MOUTH [place] 00 EVERY 8 Medical HOURS Branch NEEDED FOR ITCHING PROMETHAZIN 2021- Yes [id number] TAKE 1 [facility] E 12.5 mg 1-16 TABLET BY ity o f tablet 00:00: MOUTH ONCE [place] 00 DAILY Medical NEEDED FOR Branch NAUSEA AND VOMITING HYDROXYZINE 2021- Yes [id number] TAKE 1 [facility] 25 mg 1-16 TABLET BY ity of tablet 00:00: MOUTH [place] 00 EVERY 8 Medical HOURS Branch NEEDED FOR ITCHING PROMETHAZIN 2021- Yes [id number] TAKE 1 [facility] E 12.5 mg 1-16 TABLET BY ity o f tablet 00:00: MOUTH ONCE [place] 00 DAILY Medical NEEDED FOR Branch NAUSEA AND VOMITING HYDROXYZINE 2021- Yes [id number] TAKE 1 [facility] 25 mg 1-16 TABLET BY ity of tablet 00:00: MOUTH [place] 00 EVERY 8 Medical HOURS Branch NEEDED FOR ITCHING HYDROXYZINE 2021- Yes [id number] TAKE 1 [facility] 25 mg 1-16 TABLET BY ity of tablet 00:00: MOUTH [place] 00 EVERY 8 Medical HOURS Branch NEEDED FOR ITCHING HYDROXYZINE 2021- Yes [id number] TAKE 1 [facility] 25 mg 1-16 TABLET BY ity of tablet 00:00: MOUTH [place] 00 EVERY 8 Medical HOURS Branch NEEDED FOR ITCHING HYDROXYZINE 2021- Yes [id number] TAKE 1 [facility] 25 mg 1-16 TABLET BY ity of tablet 00:00: MOUTH [place] 00 EVERY 8 Medical HOURS Branch NEEDED FOR ITCHING HYDROXYZINE 2021- Yes [id number] TAKE 1 [facility] 25 mg 1-16 TABLET BY ity of tablet 00:00: MOUTH [place] 00 EVERY 8 Medical HOURS Branch NEEDED FOR ITCHING HYDROXYZINE 2021- Yes [id number] TAKE 1 [facility] 25 mg 1-16 TABLET BY ity of tablet 00:00: MOUTH [place] 00 EVERY 8 Medical HOURS Branch NEEDED FOR ITCHING HYDROXYZINE 2021- Yes [id number] TAKE 1 [facility] 25 mg 1-16 TABLET BY ity of tablet 00:00: MOUTH [place] 00 EVERY 8 Medical HOURS Branch NEEDED FOR ITCHING HYDROXYZINE 2021- Yes [id number] TAKE 1 [facility] 25 mg 1-16 TABLET BY ity of tablet 00:00: MOUTH [place] 00 EVERY 8 Medical HOURS Branch NEEDED FOR ITCHING HYDROXYZINE 2021- Yes [id number] TAKE 1 [facility] 25 mg 1-16 TABLET BY ity of tablet 00:00: MOUTH [place] 00 EVERY 8 Medical HOURS Branch NEEDED FOR ITCHING HYDROXYZINE 2021- Yes [id number] TAKE 1 [facility] 25 mg 1-16 TABLET BY ity of tablet 00:00: MOUTH [place] 00 EVERY 8 Medical HOURS Branch NEEDED FOR ITCHING HYDROXYZINE 2021- Yes [id number] TAKE 1 [facility] 25 mg 1-16 TABLET BY ity of tablet 00:00: MOUTH [place] 00 EVERY 8 Medical HOURS Branch NEEDED FOR ITCHING HYDROXYZINE 2021- Yes [id number] TAKE 1 [facility] 25 mg 1-16 TABLET BY ity of tablet 00:00: MOUTH [place] 00 EVERY 8 Medical HOURS Branch NEEDED FOR ITCHING HYDROXYZINE 2021- Yes [id number] TAKE 1 [facility] 25 mg 1-16 TABLET BY ity of tablet 00:00: MOUTH [place] 00 EVERY 8 Medical HOURS Branch NEEDED FOR ITCHING HYDROXYZINE 2021- Yes [id number] TAKE 1 [facility] 25 mg 1-16 TABLET BY ity of tablet 00:00: MOUTH [place] 00 EVERY 8 Medical HOURS Branch NEEDED FOR ITCHING HYDROXYZINE 2021- Yes [id number] TAKE 1 [facility] 25 mg 1-16 TABLET BY ity of tablet 00:00: MOUTH [place] 00 EVERY 8 Medical HOURS Branch NEEDED FOR ITCHING HYDROXYZINE 2021-2022- No [id number] TAKE 1 [facility] 25 mg 1-16 01-04 TABLET BY ity of tablet 00:00: 00:00 MOUTH [place] 00 :00 EVERY 8 Medical HOURS Branch NEEDED FOR ITCHING HYDROXYZINE 2021-2022- No [id number] TAKE 1 [facility] 25 mg 1-16 01-04 TABLET BY ity of tablet 00:00: 00:00 MOUTH [place] 00 :00 EVERY 8 Medical HOURS Branch NEEDED FOR ITCHING HYDROXYZINE 2021-2022- No [id number] TAKE 1 [facility] 25 mg 1-16 01-04 TABLET BY ity of tablet 00:00: 00:00 MOUTH [place] 00 :00 EVERY 8 Medical HOURS Branch NEEDED FOR ITCHING HYDROXYZINE 2021-08- No [id number] TAKE 1 [facility] 25 mg 1-16 -04 TABLET BY ity of tablet 00:00: 00:00 MOUTH [place] 00 :00 EVERY 8 Medical HOURS Branch NEEDED FOR ITCHING HYDROXYZINE 2021-08- No [id number] TAKE 1 [facility] 25 mg 1-16 -04 TABLET BY ity of tablet 00:00: 00:00 MOUTH [place] 00 :00 EVERY 8 Medical HOURS Branch NEEDED FOR ITCHING HYDROXYZINE 2021-08- No [id number] TAKE 1 [facility] 25 mg 1-16 08-16 TABLET BY ity of tablet 00:00: 00:00 MOUTH [place] 00 :00 EVERY 8 Medical HOURS Branch NEEDED FOR ITCHING PROMETHAZIN 2021-08- No [id number] TAKE 1 [facility] E 12.5 mg 1-16 12-05 TABLET BY ity of tablet 00:00: 00:00 M[place]TH [place]CE [place] 00 :00 DAILY Medical NEEDED FOR Branch NAUSEA AND VOMITING PROMETHAZIN 2021-08- No [id number] TAKE 1 [facility] E 12.5 mg 1-16 12-05 TABLET BY ity of tablet 00:00: 00:00 [place]TH [place]CE [place] 00 :00 DAILY Medical NEEDED FOR Branch NAUSEA AND VOMITING PROMETHAZIN 2021-08- No [id number] TAKE 1 [facility] E 12.5 mg 1-16 -05 TABLET BY ity of tablet 00:00: 00:00 [place]TH [place]CE [place] 00 :00 DAILY Medical NEEDED FOR Branch NAUSEA AND VOMITING PROMETHAZIN 2021-08- No [id number] TAKE 1 [facility] E 12.5 mg 1-16 12-05 TABLET BY ity of tablet 00:00: 00:00 M[place]TH [place]CE [place] 00 :00 DAILY Medical NEEDED FOR Branch NAUSEA AND VOMITING proMETHazin 2021-08 Yes [id number] 12.5mg Take 1 [facility] e 12.5 mg 0-10 tablet by ity o f tablet 00:00: mouth once [place] 00 daily as Medical needed for Branch Nausea and Vomiting (N/V). proMETHazin 2021-08 Yes [id number] 12.5mg Take 1 [facility] e 12.5 mg 0-10 tablet by ity o f tablet 00:00: mouth once [place] 00 daily as Medical needed for Branch Nausea and Vomiting (N/V). proMETHazin 2021-08 Yes [id number] 12.5mg Take 1 [facility] e 12.5 mg 0-10 tablet by ity o f tablet 00:00: mouth once [place] 00 daily as Medical needed for Branch Nausea and Vomiting (N/V). proMETHazin 2021-08 Yes [id number] 12.5mg Take 1 [facility] e 12.5 mg 0-10 tablet by ity o f tablet 00:00: mouth once [place] 00 daily as Medical needed for Branch Nausea and Vomiting (N/V). proMETHazin 2021-08 Yes [id number] 12.5mg Take 1 [facility] e 12.5 mg 0-10 tablet by ity o f tablet 00:00: mouth once [place] 00 daily as Medical needed for Branch Nausea and Vomiting (N/V). proMETHazin 2021-08 Yes [id number] 12.5mg Take 1 [facility] e 12.5 mg 0-10 tablet by ity o f tablet 00:00: mouth once [place] 00 daily as Medical needed for Branch Nausea and Vomiting (N/V). proMETHazin 2021-08- No [id number] 12.5mg Take 1 [facility] e 12.5 mg 0-10 11-16 tablet by [facility] of tablet 00:00: 00:00 mouth [place] 00 :00 daily as Medical needed for Branch Nausea and Vomiting (N/V). gabapentin 2021-08 Yes [id number] 400mg Take 1 [facility] 400 mg 0-04 9100 capsule by ity of capsule 00:00: mouth in [place] the Medical morning Branch and 1 capsule at noon and 1 capsule in the evening. tiZANidine 2021-08 Yes [id number] 4mg Take 1 [facility] 4 mg tablet 0-04 9100 tablet by ity of 00:00: mouth 3 [place] 00 (three) Medical times Branch daily as needed (muscle spasm). meloxicam 2021-08 Yes [id number] 15mg Take 1 Un joby 15 mg 0-04 tablet by ity of tablet 00:00: mouth in [place] 00 the Medical morning. Branch gabapentin 2021-08 Yes [id number] 400mg Take 1 [facility] 400 mg 0-04 9100 capsule by ity of capsule 00:00: mouth in [place] 00 the Medical morning Branch and 1 capsule at noon and 1 capsule in the evening. tiZANidine 2021-08 Yes [id number] 4mg Take 1 [facility] 4 mg tablet 0-04 9100 tablet by ity of 00:00: mouth 3 (three) Medical times Branch daily as needed (muscle spasm). meloxicam 2021-08 Yes [id number] 15mg Take 1 Un job[facility] 15 mg 0-04 tablet by ity of tablet 00:00: mouth in [place] the Medical morning. Branch gabapentin 2021-08 Yes [id number] 400mg Take 1 [facility] 400 mg 0-04 9100 capsule by ity of capsule 00:00: mouth in [place] the Medical morning Branch and 1 capsule at noon and 1 capsule in the evening. tiZANidine 2021-08 Yes [id number] 4mg Take 1 [facility] 4 mg tablet 0-04 9100 tablet by ity of 00:00: mouth 3 [place] (three) Medical times [place] daily as needed (muscle spasm). meloxicam 2021-08 Yes [id number] 15mg Take 1 Un job[facility] 15 mg 0-04 tablet by ity of tablet 00:00: mouth in [place] the Medical morning. Branch gabapentin 2021-08 Yes [id number] 400mg Take 1 [facility] 400 mg 0-04 9100 capsule by ity of capsule 00:00: mouth in [place] the Medical morning Branch and 1 capsule at noon and 1 capsule in the evening. tiZANidine 2021-08 Yes [id number] 4mg Take 1 [facility] 4 mg tablet 0-04 9100 tablet by ity of 00:00: mouth 3 [place] (three) Medical times [place] daily as needed (muscle spasm). meloxicam 2021-08 Yes [id number] 15mg Take 1 Un job[facility] 15 mg 0-04 tablet by ity of tablet 00:00: mouth in [place] the Medical morning. Branch gabapentin 2021-08 Yes [id number] 400mg Take 1 [facility] 400 mg 0-04 9100 capsule by ity of capsule 00:00: mouth in [place] the Medical morning Branch and 1 capsule at noon and 1 capsule in the evening. tiZANidine 2021-08 Yes [id number] 4mg Take 1 [facility] 4 mg tablet 0-04 9100 tablet by ity of 00:00: mouth 3 [place] (three) Medical times Branch daily as needed (muscle spasm). meloxicam 2021-08 Yes [id number] 15mg Take 1 Un job[facility] 15 mg 0-04 tablet by ity of tablet 00:00: mouth in [place] the Medical morning. Branch gabapentin 2021-08 Yes [id number] 400mg Take 1 [facility] 400 mg 0-04 9100 capsule by ity of capsule 00:00: mouth in [place] the Medical morning Branch and 1 capsule at noon and 1 capsule in the evening. tiZANidine 2021-08 Yes [id number] 4mg Take 1 [facility] 4 mg tablet 0-04 9100 tablet by ity of 00:00: mouth 3 [place] (three) Medical times [place] daily as needed (muscle spasm). meloxicam 2021-08 Yes [id number] 15mg Take 1 Un job[facility] 15 mg 0-04 tablet by ity of tablet 00:00: mouth in [place] the Medical morning. Branch gabapentin 2021-08 Yes [id number] 400mg Take 1 [facility] 400 mg 0-04 9100 capsule by ity of capsule 00:00: mouth in [place] the Medical morning Branch and 1 capsule at noon and 1 capsule in the evening. tiZANidine 2021-08 Yes [id number] 4mg Take 1 [facility] 4 mg tablet 0-04 9100 tablet by ity of 00:00: mouth 3 [place] (three) Medical times [place] daily as needed (muscle spasm). meloxicam 2021-08 Yes [id number] 15mg Take 1 Un [facility] 15 mg 0-04 tablet by ity of tablet 00:00: mouth in [place] the Medical morning. Branch gabapentin 2021-08 Yes [id number] 400mg Take 1 [facility] 400 mg 0-04 9100 capsule by ity of capsule 00:00: mouth in [place] the Medical morning Branch and 1 capsule at noon and 1 capsule in the evening. tiZANidine 2021-08 Yes [id number] 4mg Take 1 [facility] 4 mg tablet 0-04 9100 tablet by ity of 00:00: mouth 3 [place] (three) Medical times [place] daily as needed (muscle spasm). gabapentin 2021-08 Yes [id number] 400mg Take 1 [facility] 400 mg 0-04 9100 capsule by ity of capsule 00:00: mouth in [place] the Medical morning Branch and 1 capsule at noon and 1 capsule in the evening. tiZANidine 2021-08 Yes [id number] 4mg Take 1 [facility] 4 mg tablet 0-04 9100 tablet by ity of 00:00: mouth 3 (three) Medical times Branch daily as needed (muscle spasm). gabapentin 2021-08 Yes [id number] 400mg Take 1 [facility] 400 mg 0-04 9100 capsule by ity of capsule 00:00: mouth in [place] 00 the Medical morning Branch and 1 capsule at noon and 1 capsule in the evening. tiZANidine 2021-08 Yes [id number] 4mg Take 1 [facility] 4 mg tablet 0-04 9100 tablet by ity of 00:00: mouth 3 (three) Medical times Branch daily as needed (muscle spasm). gabapentin 2021-08 Yes [id number] 400mg Take 1 [facility] 400 mg 0-04 9100 capsule by ity of capsule 00:00: mouth in [place] the Medical morning Branch and 1 capsule at noon and 1 capsule in the evening. tiZANidine 2021-08 Yes [id number] 4mg Take 1 [facility] 4 mg tablet 0-04 9100 tablet by ity of 00:00: mouth 3 (three) Medical times Branch daily as needed (muscle spasm). gabapentin 2021-08 Yes [id number] 400mg Take 1 [facility] 400 mg 0-04 9100 capsule by ity of capsule 00:00: mouth in [place] the Medical morning Branch and 1 capsule at noon and 1 capsule in the evening. tiZANidine 2021-08 Yes [id number] 4mg Take 1 [facility] 4 mg tablet 0-04 9100 tablet by ity of 00:00: mouth 3 (three) Medical times Branch daily as needed (muscle spasm). gabapentin 2021-08 Yes [id number] 400mg Take 1 [facility] 400 mg 0-04 9100 capsule by ity of capsule 00:00: mouth in [place] 00 the Medical morning Branch and 1 capsule at noon and 1 capsule in the evening. tiZANidine 2021-08 Yes [id number] 4mg Take 1 [facility] 4 mg tablet 0-04 9100 tablet by ity of 00:00: mouth 3 [place] 00 (three) Medical times Branch daily as needed (muscle spasm). gabapentin 2021-08 Yes [id number] 400mg Take 1 [facility] 400 mg 0-04 9100 capsule by ity of capsule 00:00: mouth in [place] the Medical morning Branch and 1 capsule at noon and 1 capsule in the evening. tiZANidine 2021- Yes [id number] 4mg Take 1 [facility] 4 mg tablet 0-04 9100 tablet by ity of 00:00: mouth 3 (three) Medical times Branch daily as needed (muscle spasm). gabapentin 2021-08 Yes [id number] 400mg Take 1 [facility] 400 mg 0-04 9100 capsule by ity of capsule 00:00: mouth in [place] 00 the Medical morning Branch and 1 capsule at noon and 1 capsule in the evening. tiZANidine 2021-08 Yes [id number] 4mg Take 1 [facility] 4 mg tablet 0-04 9100 tablet by ity of 00:00: mouth 3 [place] (three) Medical times Branch daily as needed (muscle spasm). gabapentin 2021-08 Yes [id number] 400mg Take 1 [facility] 400 mg 0-04 9100 capsule by ity of capsule 00:00: mouth in [place] [address] the Medical morning Branch and 1 capsule at noon and 1 capsule in the evening. tiZANidine 2021-08 Yes [id number] 4mg Take 1 [facility] 4 mg tablet 0-04 9100 tablet by ity of 00:00: mouth [place] (three) Medical times Branch daily as needed (muscle spasm). gabapentin 2021-08 Yes [id number] 400mg Take 1 [facility] 400 mg 0-04 9100 capsule by ity of capsule 00:00: mouth in [place] [address] the Medical morning Branch and 1 capsule at noon and 1 capsule in the evening. tiZANidine 2021-08 Yes [id number] 4mg Take 1 [facility] 4 mg tablet 0-04 9100 tablet by ity of 00:00: mouth 3 (three) Medical times Branch daily as needed (muscle spasm). gabapentin 2021- Yes [id number] 400mg Take 1 [facility] 400 mg 0-04 9100 capsule by ity of capsule 00:00: mouth in [place] [address] the Medical morning Branch and 1 capsule at noon and 1 capsule in the evening. tiZANidine 2021-08 Yes [id number] 4mg Take 1 [facility] 4 mg tablet 0-04 9100 tablet by ity of 00:00: mouth 3 [place] (three) Medical times Branch daily as needed (muscle spasm). gabapentin 2021-08 Yes [id number] 400mg Take 1 [facility] 400 mg 0-04 9100 capsule by ity of capsule 00:00: mouth in [place] 00 the Medical morning Branch and 1 capsule at noon and 1 capsule in the evening. tiZANidine 2021-08 Yes [id number] 4mg Take 1 [facility] 4 mg tablet 0-04 9100 tablet by ity of 00:00: mouth 3 [place] (three) Medical times [place] daily as needed (muscle spasm). gabapentin 2021-08 Yes [id number] 400mg Take 1 [facility] 400 mg 0-04 9100 capsule by ity of capsule 00:00: mouth in [place] the Medical morning Branch and 1 capsule at noon and 1 capsule in the evening. tiZANidine 2021-08 Yes [id number] 4mg Take 1 [facility] 4 mg tablet 0-04 9100 tablet by ity of 00:00: mouth 3 [place] (three) Medical times [place] daily as needed (muscle spasm). gabapentin 2021-08 Yes [id number] 400mg Take 1 [facility] 400 mg 0-04 9100 capsule by ity of capsule 00:00: mouth in [place] [address] the Medical morning Branch and 1 capsule at noon and 1 capsule in the evening. tiZANidine 2021-08 Yes [id number] 4mg Take 1 [facility] 4 mg tablet 0-04 9100 tablet by ity of 00:00: mouth 3 [place] (three) Medical times [place] daily as needed (muscle spasm). gabapentin 2021-08 Yes [id number] 400mg Take 1 [facility] 400 mg 0-04 9100 capsule by ity of capsule 00:00: mouth in [place] [address] the Medical morning Branch and 1 capsule at noon and 1 capsule in the evening. tiZANidine 2021-08 Yes [id number] 4mg Take 1 [facility] 4 mg tablet 0-04 9100 tablet by ity of 00:00: mouth 3 [place] [address] (three) Medical times [place] daily as needed (muscle spasm). gabapentin 2021-08 Yes [id number] 400mg Take 1 [facility] 400 mg 0-04 9100 capsule by ity of capsule 00:00: mouth in [place] [address] the Medical morning Branch and 1 capsule at noon and 1 capsule in the evening. gabapentin 2021-08 Yes [id number] 400mg Take 1 [facility] 400 mg 0-04 9100 capsule by ity of capsule 00:00: mouth in [address] morning [place] and 1 capsule at noon and 1 capsule in the evening. gabapentin 2021- Yes [id number] 400mg Take 1 [facility] 400 mg 0-04 9100 capsule by ity of capsule 00:00: mouth in [address] morning [place] and 1 capsule at noon and 1 capsule in the evening. gabapentin 2021- Yes [id number] 400mg Take 1 [facility] 400 mg 0-04 9100 capsule by ity of capsule 00:00: mouth in [address] morning [place] and 1 capsule at noon and 1 capsule in the evening. gabapentin 2021- Yes [id number] 400mg Take 1 [facility] 400 mg 0-04 9100 capsule by ity of capsule 00:00: mouth in [address] and 1 capsule at noon and 1 capsule in the evening. gabapentin 2021- Yes [id number] 400mg Take 1 [facility] 400 mg 0-04 9100 capsule by ity of capsule 00:00: mouth in [address] and 1 capsule at noon and 1 capsule in the evening. gabapentin 2021- Yes [id number] 400mg Take 1 [facility] 400 mg 0-04 9100 capsule by ity of capsule 00:00: mouth in [address] morning [place] and 1 capsule at noon and 1 capsule in the evening. gabapentin 2021- Yes [id number] 400mg Take 1 [facility] 400 mg 0-04 9100 capsule by ity of capsule 00:00: mouth in [address] morning [place] and 1 capsule at noon and 1 capsule in the evening. gabapentin 2021- Yes [id number] 400mg Take 1 [facility] 400 mg 0-04 9100 capsule by ity of capsule 00:00: mouth in [address] morning [place] and 1 capsule at noon and 1 capsule in the evening. gabapentin 2021-1 Yes [id number] 400mg Take 1 [facility] 400 mg 0-04 9100 capsule by ity of capsule 00:00: mouth in [address] and 1 capsule at noon and 1 capsule in the evening. gabapentin 202-1 Yes [id number] 400mg Take 1 [facility] 400 mg 0-04 9100 capsule by ity of capsule 00:00: mouth in [place] 00 the Medical morning Branch and 1 capsule at noon and 1 capsule in the evening. gabapentin 2021-08 Yes [id number] 400mg Take 1 [facility] 400 mg 0-04 9100 capsule by ity of capsule 00:00: mouth in [place] the Medical morning Branch and 1 capsule at noon and 1 capsule in the evening. tiZANidine 2021-08 Yes [id number] 4mg Take 1 [facility] 4 mg tablet 0-04 9100 tablet by ity of 00:00: mouth 3 [place] (three) Medical times Branch daily as needed (muscle spasm). meloxicam 2021-08 Yes [id number] 15mg Take 1 Un job[facility] 15 mg 0-04 tablet by ity of tablet 00:00: mouth in [place] the Medical morning. Branch gabapentin 2021-08 Yes [id number] 400mg Take 1 [facility] 400 mg 0-04 9100 capsule by ity of capsule 00:00: mouth in [place] the Medical morning Branch and 1 capsule at noon and 1 capsule in the evening. tiZANidine 2021-08 Yes [id number] 4mg Take 1 [facility] 4 mg tablet 0-04 9100 tablet by ity of 00:00: mouth 3 [place] (three) Medical times [place] daily as needed (muscle spasm). meloxicam 2021-08 Yes [id number] 15mg Take 1 Un [facility] 15 mg 0-04 tablet by ity of tablet 00:00: mouth in [place] the Medical morning. Branch gabapentin 2021-08 Yes [id number] 400mg Take 1 [facility] 400 mg 0-04 9100 capsule by ity of capsule 00:00: mouth in [place] the Medical morning Branch and 1 capsule at noon and 1 capsule in the evening. tiZANidine 2021-08 Yes [id number] 4mg Take 1 [facility] 4 mg tablet 0-04 9100 tablet by ity of 00:00: mouth 3 [place] (three) Medical times [place] daily as needed (muscle spasm). meloxicam 2021-08 Yes [id number] 15mg Take 1 [facility] 15 mg 0-04 tablet by ity of tablet 00:00: mouth in [place] the Medical morning. Branch gabapentin 2021-08 Yes [id number] 400mg Take 1 [facility] 400 mg 0-04 9100 capsule by ity of capsule 00:00: mouth in [place] the Medical morning Branch and 1 capsule at noon and 1 capsule in the evening. tiZANidine 2021-08 Yes [id number] 4mg Take 1 [facility] 4 mg tablet 0-04 9100 tablet by ity of 00:00: mouth 3 (three) Medical times Branch daily as needed (muscle spasm). meloxicam 2021-08 Yes [id number] 15mg Take 1 [facility] 15 mg 0-04 tablet by ity of tablet 00:00: mouth in [place] the Medical morning. Branch gabapentin 2021-08 Yes [id number] 400mg Take 1 [facility] 400 mg 0-04 9100 capsule by ity of capsule 00:00: mouth in [place] the Medical morning Branch and 1 capsule at noon and 1 capsule in the evening. tiZANidine 2021-08 Yes [id number] 4mg Take 1 [facility] 4 mg tablet 0-04 9100 tablet by ity of 00:00: mouth 3 [place] (three) Medical times [place] daily as needed (muscle spasm). meloxicam 2021-08 Yes [id number] 15mg Take 1 [facility] 15 mg 0-04 tablet by ity of tablet 00:00: mouth in [place] the Medical morning. Branch gabapentin 2021-08 Yes [id number] 400mg Take 1 [facility] 400 mg 0-04 9100 capsule by ity of capsule 00:00: mouth in [place] the Medical morning Branch and 1 capsule at noon and 1 capsule in the evening. tiZANidine 2021-08 Yes [id number] 4mg Take 1 [facility] 4 mg tablet 0-04 9100 tablet by ity of 00:00: mouth 3 [place] (three) Medical times Branch daily as needed (muscle spasm). meloxicam 2021-08 Yes [id number] 15mg Take 1 [facility] 15 mg 0-04 tablet by ity of tablet 00:00: mouth in [place] the Medical morning. Branch gabapentin 2021-08 Yes [id number] 400mg Take 1 [facility] 400 mg 0-04 9100 capsule by ity of capsule 00:00: mouth in [place] the Medical morning Branch and 1 capsule at noon and 1 capsule in the evening. tiZANidine 2021-08 Yes [id number] 4mg Take 1 [facility] 4 mg tablet 0-04 9100 tablet by ity of 00:00: mouth 3 [place] (three) Medical times Branch daily as needed (muscle spasm). meloxicam 2021-08 Yes [id number] 15mg Take 1 [facility] 15 mg 0-04 tablet by [facility] of tablet 00:00: mouth in [place] the Medical morning. Branch gabapentin 2021-08 Yes [id number] 400mg Take 1 [facility] 400 mg 0-04 9100 capsule by [facility] of capsule 00:00: mouth in [place] the Medical morning Branch and 1 capsule at noon and 1 capsule in the evening. tiZANidine 2021-08 Yes [id number] 4mg Take 1 [facility] 4 mg tablet 0-04 9100 tablet by [facility] of 00:00: mouth 3 [place] (three) Medical times Branch daily as needed (muscle spasm). meloxicam 2021-08 Yes [id number] 15mg Take 1 [facility] 15 mg 0-04 tablet by [facility] of tablet 00:00: mouth in [place] the Medical morning. Branch gabapentin 2021-08 Yes [id number] 400mg Take 1 [facility] 400 mg 0-04 9100 capsule by [facility] of capsule 00:00: mouth in [place] the Medical morning Branch and 1 capsule at noon and 1 capsule in the evening. tiZANidine 2021-08 Yes [id number] 4mg Take 1 [facility] 4 mg tablet 0-04 9100 tablet by [facility] of 00:00: mouth 3 [place] (three) Medical times [place] daily as needed (muscle spasm). meloxicam 2021-08 Yes [id number] 15mg Take 1 [facility] 15 mg 0-04 tablet by [facility] of tablet 00:00: mouth in [place] the Medical morning. Branch gabapentin 2021-08 Yes [id number] 400mg Take 1 [facility] 400 mg 0-04 9100 capsule by [facility] of capsule 00:00: mouth in [place] the Medical morning Branch and 1 capsule at noon and 1 capsule in the evening. tiZANidine 2021-08 Yes [id number] 4mg Take 1 [facility] 4 mg tablet 0-04 9100 tablet by [facility] of 00:00: mouth 3 [place] 00 (three) Medical times Branch daily as needed (muscle spasm). meloxicam 2021-08 Yes [id number] 15mg Take 1 [facility] 15 mg 0-04 tablet by [facility] of tablet 00:00: mouth in [place] the Medical morning. Branch gabapentin 2021-08 Yes [id number] 400mg Take 1 [facility] 400 mg 0-04 9100 capsule by [facility] of capsule 00:00: mouth in [place] the Medical morning Branch and 1 capsule at noon and 1 capsule in the evening. tiZANidine 2021-08 Yes [id number] 4mg Take 1 [facility] 4 mg tablet 0-04 9100 tablet by [facility] of 00:00: mouth 3 [place] (three) Medical times [place] daily as needed (muscle spasm). meloxicam 2021-08 Yes [id number] 15mg Take 1 [facility] 15 mg 0-04 tablet by [facility] of tablet 00:00: mouth in [place] the Medical morning. Branch gabapentin 2021-08 Yes [id number] 400mg Take 1 [facility] 400 mg 0-04 9100 capsule by [facility] of capsule 00:00: mouth in [place] the Medical morning Branch and 1 capsule at noon and 1 capsule in the evening. tiZANidine 2021-08 Yes [id number] 4mg Take 1 [facility] 4 mg tablet 0-04 9100 tablet by [facility] of 00:00: mouth 3 [place] (three) Medical times [place] daily as needed (muscle spasm). meloxicam 2021-08 Yes [id number] 15mg Take 1 [facility] 15 mg 0-04 tablet by [facility] of tablet 00:00: mouth in [place] the Medical morning. Branch gabapentin 2021-08 Yes [id number] 400mg Take 1 [facility] 400 mg 0-04 9100 capsule by [facility] of capsule 00:00: mouth in [place] the Medical morning Branch and 1 capsule at noon and 1 capsule in the evening. tiZANidine 2021-08 Yes [id number] 4mg Take 1 [facility] 4 mg tablet 0-04 9100 tablet by [facility] of 00:00: mouth 3 [place] (three) Medical times [place] daily as needed (muscle spasm). meloxicam 2021-08 Yes [id number] 15mg Take 1 [facility] 15 mg 0-04 tablet by [facility] of tablet 00:00: mouth in [place] the Medical morning. Branch gabapentin 2021-08 Yes [id number] 400mg Take 1 [facility] 400 mg 0-04 9100 capsule by [facility] of capsule 00:00: mouth in [place] the Medical morning Branch and 1 capsule at noon and 1 capsule in the evening. tiZANidine 2021-08 Yes [id number] 4mg Take 1 [facility] 4 mg tablet 0-04 9100 tablet by [facility] of 00:00: mouth 3 (three) Medical times Branch daily as needed (muscle spasm). meloxicam 2021-08 Yes [id number] 15mg Take 1 [facility] 15 mg 0-04 tablet by [facility] of tablet 00:00: mouth in [place] the Medical morning. Branch gabapentin 2021-08 Yes [id number] 400mg Take 1 [facility] 400 mg 0-04 9100 capsule by [facility] of capsule 00:00: mouth in [place] the Medical morning Branch and 1 capsule at noon and 1 capsule in the evening. tiZANidine 2021-08 Yes [id number] 4mg Take 1 [facility] 4 mg tablet 0-04 9100 tablet by [facility] of 00:00: mouth 3 [place] (three) Medical times Branch daily as needed (muscle spasm). meloxicam 2021-08 Yes [id number] 15mg Take 1 [facility] 15 mg 0-04 tablet by [facility] of tablet 00:00: mouth in [place] the Medical morning. Branch gabapentin 2021-08 Yes [id number] 400mg Take 1 [facility] 400 mg 0-04 9100 capsule by [facility] of capsule 00:00: mouth in [place] the Medical morning Branch and 1 capsule at noon and 1 capsule in the evening. tiZANidine 2021-08 Yes [id number] 4mg Take 1 [facility] 4 mg tablet 0-04 9100 tablet by [facility] of 00:00: mouth 3 [place] (three) Medical times Branch daily as needed (muscle spasm). meloxicam 2021-08 Yes [id number] 15mg Take 1 [facility] 15 mg 0-04 tablet by [facility] of tablet 00:00: mouth in [place] the Medical morning. Branch gabapentin 2021-08 Yes [id number] 400mg Take 1 [facility] 400 mg 0-04 9100 capsule by [facility] of capsule 00:00: mouth in [place] the Medical morning Branch and 1 capsule at noon and 1 capsule in the evening. tiZANidine 2021-08 Yes [id number] 4mg Take 1 [facility] 4 mg tablet 0-04 9100 tablet by [facility] of 00:00: mouth 3 [place] (three) Medical times Branch daily as needed (muscle spasm). meloxicam 2021-08 Yes [id number] 15mg Take 1 [facility] 15 mg 0-04 tablet by [facility] of tablet 00:00: mouth in [place] the Medical morning. Branch gabapentin 2021-08 Yes [id number] 400mg Take 1 [facility] 400 mg 0-04 9100 capsule by [facility] of capsule 00:00: mouth in [place] the Medical morning Branch and 1 capsule at noon and 1 capsule in the evening. tiZANidine 2021-08 Yes [id number] 4mg Take 1 [facility] 4 mg tablet 0-04 9100 tablet by [facility] of 00:00: mouth 3 [place] (three) Medical times Branch daily as needed (muscle spasm). meloxicam 2021-08 Yes [id number] 15mg Take 1 [facility] 15 mg 0-04 tablet by [facility] of tablet 00:00: mouth in [place] the Medical morning. Branch gabapentin 2021-08 Yes [id number] 400mg Take 1 [facility] 400 mg 0-04 9100 capsule by [facility] of capsule 00:00: mouth in [place] the Medical morning Branch and 1 capsule at noon and 1 capsule in the evening. tiZANidine 2021-08 Yes [id number] 4mg Take 1 [facility] 4 mg tablet 0-04 9100 tablet by [facility] of 00:00: mouth 3 [place] (three) Medical times [place] daily as needed (muscle spasm). meloxicam 2021-08 Yes [id number] 15mg Take 1 [facility] 15 mg 0-04 tablet by [facility] of tablet 00:00: mouth in [place] the Medical morning. Branch gabapentin 2021-08 Yes [id number] 400mg Take 1 [facility] 400 mg 0-04 9100 capsule by [facility] of capsule 00:00: mouth in [place] the Medical morning Branch and 1 capsule at noon and 1 capsule in the evening. tiZANidine 2021-08 Yes [id number] 4mg Take 1 [facility] 4 mg tablet 0-04 9100 tablet by [facility] of 00:00: mouth 3 [place] (three) Medical times [place] daily as needed (muscle spasm). meloxicam 2021-08 Yes [id number] 15mg Take 1 [facility] 15 mg 0-04 tablet by [facility] of tablet 00:00: mouth in [place] the Medical morning. Branch gabapentin 2021-08 Yes [id number] 400mg Take 1 [facility] 400 mg 0-04 9100 capsule by [facility] of capsule 00:00: mouth in [place] the Medical morning Branch and 1 capsule at noon and 1 capsule in the evening. tiZANidine 2021-08 Yes [id number] 4mg Take 1 [facility] 4 mg tablet 0-04 9100 tablet by [facility] of 00:00: mouth 3 [place] (three) Medical times [place] daily as needed (muscle spasm). meloxicam 2021-08 Yes [id number] 15mg Take 1 [facility] 15 mg 0-04 tablet by [facility] of tablet 00:00: mouth in [place] the Medical morning. Branch gabapentin 2021-08 Yes [id number] 400mg Take 1 [facility] 400 mg 0-04 9100 capsule by [facility] of capsule 00:00: mouth in [place] the Medical morning Branch and 1 capsule at noon and 1 capsule in the evening. tiZANidine 2021-08 Yes [id number] 4mg Take 1 [facility] 4 mg tablet 0-04 9100 tablet by [facility] of 00:00: mouth 3 [place] [address] (three) Medical times [place] daily as needed (muscle spasm). meloxicam 2021-08 Yes [id number] 15mg Take 1 [facility] 15 mg 0-04 tablet by [facility] of tablet 00:00: mouth in [place] the Medical morning. Branch gabapentin 2021-08 Yes [id number] 400mg Take 1 [facility] 400 mg 0-04 9100 capsule by [facility] of capsule 00:00: mouth in [place] the Medical morning Branch and 1 capsule at noon and 1 capsule in the evening. tiZANidine 2021-08 Yes [id number] 4mg Take 1 [facility] 4 mg tablet 0-04 9100 tablet by [facility] of 00:00: mouth 3 [place] (three) Medical times [place] daily as needed (muscle spasm). meloxicam 2021-08 Yes [id number] 15mg Take 1 [facility] 15 mg 0-04 tablet by [facility] of tablet 00:00: mouth in [place] the Medical morning. Branch gabapentin 2021-08 Yes [id number] 400mg Take 1 [facility] 400 mg 0-04 9100 capsule by [facility] of capsule 00:00: mouth in [place] [address] the Medical morning Branch and 1 capsule at noon and 1 capsule in the evening. tiZANidine 2021-08 Yes [id number] 4mg Take 1 [facility] 4 mg tablet 0-04 9100 tablet by [facility] of 00:00: mouth 3 [place] 00 (three) Medical times Branch daily as needed (muscle spasm). meloxicam 2021-08 Yes [id number] 15mg Take 1 [facility] 15 mg 0-04 tablet by [facility] of tablet 00:00: mouth in [place] the Medical morning. Branch gabapentin 2021-08 Yes [id number] 400mg Take 1 [facility] 400 mg 0-04 9100 capsule by [facility] of capsule 00:00: mouth in [place] the Medical morning Branch and 1 capsule at noon and 1 capsule in the evening. tiZANidine 2021-08 Yes [id number] 4mg Take 1 [facility] 4 mg tablet 0-04 9100 tablet by [facility] of 00:00: mouth 3 (three) Medical times Branch daily as needed (muscle spasm). meloxicam 2021-08 Yes [id number] 15mg Take 1 [facility] 15 mg 0-04 tablet by [facility] of tablet 00:00: mouth in [place] the Medical morning. Branch gabapentin 2021-08 Yes [id number] 400mg Take 1 [facility] 400 mg 0-04 9100 capsule by it[facility] of capsule 00:00: mouth in [place] the Medical morning Branch and 1 capsule at noon and 1 capsule in the evening. tiZANidine 2021-08 Yes [id number] 4mg Take 1 [facility] 4 mg tablet 0-04 9100 tablet by [facility] of 00:00: mouth 3 (three) Medical times Branch daily as needed (muscle spasm). meloxicam 2021-08 Yes [id number] 15mg Take 1 [facility] 15 mg 0-04 tablet by [facility] of tablet 00:00: mouth in [place] the Medical morning. Branch gabapentin 2021-08 Yes [id number] 400mg Take 1 [facility] 400 mg 0-04 9100 capsule by it[facility] of capsule 00:00: mouth in [place] the Medical morning Branch and 1 capsule at noon and 1 capsule in the evening. tiZANidine 2021-08 Yes [id number] 4mg Take 1 [facility] 4 mg tablet 0-04 9100 tablet by it[facility] of 00:00: mouth 3 [place] (three) Medical times Branch daily as needed (muscle spasm). meloxicam 2021-08 Yes [id number] 15mg Take 1 [facility] 15 mg 0-04 tablet by it[facility] of tablet 00:00: mouth in [place] the Medical morning. Branch gabapentin 2021-08 Yes [id number] 400mg Take 1 [facility] 400 mg 0-04 9100 capsule by ity of capsule 00:00: mouth in [place] the morning Branch and 1 capsule at noon and 1 capsule in the evening. tiZANidine 2021-08 Yes [id number] 4mg Take 1 [facility] 4 mg tablet 0-04 9100 tablet by ity of 00:00: mouth 3 [place] (three) Medical times [place] daily as needed (muscle spasm). meloxicam 2021-08 Yes [id number] 15mg Take 1 [facility] 15 mg 0-04 tablet by it[facility] of tablet 00:00: mouth in [place] the morning. Branch gabapentin 2021-08 Yes [id number] 400mg Take 1 [facility] 400 mg 0-04 9100 capsule by ity of capsule 00:00: mouth in [place] [address] the morning Branch and 1 capsule at noon and 1 capsule in the evening. tiZANidine 2021-08 Yes [id number] 4mg Take 1 [facility] 4 mg tablet 0-04 9100 tablet by ity of 00:00: mouth 3 [place] (three) [facility] times [place] daily as needed (muscle spasm). meloxicam 2021-08 Yes [id number] 15mg Take 1 [facility] 15 mg 0-04 tablet by ity of tablet 00:00: mouth in [place] the morning. Branch gabapentin 2021-08 Yes [id number] 400mg Take 1 [facility] 400 mg 0-04 9100 capsule by ity of capsule 00:00: mouth in [place] the morning Branch and 1 capsule at noon and 1 capsule in the evening. tiZANidine 2021-08 Yes [id number] 4mg Take 1 [facility] 4 mg tablet 0-04 9100 tablet by ity of 00:00: mouth 3 [place] (three) [facility] times [place] daily as needed (muscle spasm). meloxicam 2021-08 Yes [id number] 15mg Take 1 [facility] 15 mg 0-04 tablet by ity of tablet 00:00: mouth in [place] the Medical morning. Branch gabapentin 2021-08 Yes [id number] 400mg Take 1 [facility] 400 mg 0-04 9100 capsule by ity of capsule 00:00: mouth in [place] [address] the Medical morning Branch and 1 capsule at noon and 1 capsule in the evening. tiZANidine 2021-08 Yes [id number] 4mg Take 1 [facility] 4 mg tablet 0-04 9100 tablet by ity of 00:00: mouth 3 [place] (three) Medical times [place] daily as needed (muscle spasm). meloxicam 2021-08 Yes [id number] 15mg Take 1 [facility] 15 mg 0-04 tablet by it[facility] of tablet 00:00: mouth in [place] the Medical morning. Branch gabapentin 2021-08 Yes [id number] 400mg Take 1 [facility] 400 mg 0-04 9100 capsule by ity of capsule 00:00: mouth in [place] the Medical morning Branch and 1 capsule at noon and 1 capsule in the evening. tiZANidine 2021-08 Yes [id number] 4mg Take 1 [facility] 4 mg tablet 0-04 9100 tablet by ity of 00:00: mouth 3 [place] (three) Medical times [place] daily as needed (muscle spasm). meloxicam 2021-08 Yes [id number] 15mg Take 1 [facility] 15 mg 0-04 tablet by it[facility] of tablet 00:00: mouth in [place] the Medical morning. Branch gabapentin 2021-08 Yes [id number] 400mg Take 1 [facility] 400 mg 0-04 9100 capsule by ity of capsule 00:00: mouth in [place] the Medical morning Branch and 1 capsule at noon and 1 capsule in the evening. tiZANidine 2021-08 Yes [id number] 4mg Take 1 [facility] 4 mg tablet 0-04 9100 tablet by ity of 00:00: mouth 3 [place] (three) Medical times [place] daily as needed (muscle spasm). meloxicam 2021-08 Yes [id number] 15mg Take 1 [facility] 15 mg 0-04 tablet by it[facility] of tablet 00:00: mouth in [place] the Medical morning. Branch gabapentin 2021-08 Yes [id number] 400mg Take 1 [facility] 400 mg 0-04 9100 capsule by it[facility] of capsule 00:00: mouth in [place] the Medical morning Branch and 1 capsule at noon and 1 capsule in the evening. tiZANidine 2021-08 Yes [id number] 4mg Take 1 [facility] 4 mg tablet 0-04 9100 tablet by it[facility] of 00:00: mouth 3 [place] (three) Medical times Branch daily as needed (muscle spasm). meloxicam 2021-08 Yes [id number] 15mg Take 1 [facility] 15 mg 0-04 tablet by it[facility] of tablet 00:00: mouth in [place] the Medical morning. Branch gabapentin 2021-08 Yes [id number] 400mg Take 1 [facility] 400 mg 0-04 9100 capsule by ity of capsule 00:00: mouth in [place] the Medical morning Branch and 1 capsule at noon and 1 capsule in the evening. tiZANidine 2021-08 Yes [id number] 4mg Take 1 [facility] 4 mg tablet 0-04 9100 tablet by ity of 00:00: mouth 3 [place] (three) Medical times [place] daily as needed (muscle spasm). meloxicam 2021-08 Yes [id number] 15mg Take 1 [facility] 15 mg 0-04 tablet by ity of tablet 00:00: mouth in [place] the Medical morning. Branch gabapentin 2021-08 Yes [id number] 400mg Take 1 [facility] 400 mg 0-04 9100 capsule by ity of capsule 00:00: mouth in [place] the Medical morning Branch and 1 capsule at noon and 1 capsule in the evening. tiZANidine 2021-08 Yes [id number] 4mg Take 1 [facility] 4 mg tablet 0-04 9100 tablet by ity of 00:00: mouth 3 [place] (three) Medical times [place] daily as needed (muscle spasm). meloxicam 2021-08 Yes [id number] 15mg Take 1 [facility] 15 mg 0-04 tablet by ity of tablet 00:00: mouth in [place] the Medical morning. Branch gabapentin 2021-08 Yes [id number] 400mg Take 1 [facility] 400 mg 0-04 9100 capsule by ity of capsule 00:00: mouth in [place] the Medical morning Branch and 1 capsule at noon and 1 capsule in the evening. tiZANidine 2021-08 Yes [id number] 4mg Take 1 [facility] 4 mg tablet 0-04 9100 tablet by ity of 00:00: mouth 3 [place] (three) Medical times [place] daily as needed (muscle spasm). meloxicam 2021-08 Yes [id number] 15mg Take 1 [facility] 15 mg 0-04 tablet by ity of tablet 00:00: mouth in [place] the Medical morning. Branch gabapentin 2021-08 Yes [id number] 400mg Take 1 [facility] 400 mg 0-04 9100 capsule by ity of capsule 00:00: mouth in [place] the Medical morning Branch and 1 capsule at noon and 1 capsule in the evening. tiZANidine 2021-08 Yes [id number] 4mg Take 1 [facility] 4 mg tablet 0-04 9100 tablet by ity of 00:00: mouth 3 [place] (three) Medical times [place] daily as needed (muscle spasm). meloxicam 2021-08 Yes [id number] 15mg Take 1 [facility] 15 mg 0-04 tablet by ity of tablet 00:00: mouth in [place] the Medical morning. Branch gabapentin 2021-08 Yes [id number] 400mg Take 1 [facility] 400 mg 0-04 9100 capsule by ity of capsule 00:00: mouth in [place] the Medical morning Branch and 1 capsule at noon and 1 capsule in the evening. tiZANidine 2021-08 Yes [id number] 4mg Take 1 [facility] 4 mg tablet 0-04 9100 tablet by ity of 00:00: mouth 3 [place] (three) Medical times [place] daily as needed (muscle spasm). meloxicam 2021-08 Yes [id number] 15mg Take 1 [facility] 15 mg 0-04 tablet by ity of tablet 00:00: mouth in [place] the Medical morning. Branch gabapentin 2021-08 Yes [id number] 400mg Take 1 [facility] 400 mg 0-04 9100 capsule by ity of capsule 00:00: mouth in [place] the Medical morning Branch and 1 capsule at noon and 1 capsule in the evening. tiZANidine 2021-08 Yes [id number] 4mg Take 1 [facility] 4 mg tablet 0-04 9100 tablet by ity of 00:00: mouth 3 [place] (three) Medical times [place] daily as needed (muscle spasm). meloxicam 2021-08 Yes [id number] 15mg Take 1 [facility] 15 mg 0-04 tablet by ity of tablet 00:00: mouth in [place] the Medical morning. Branch gabapentin 2021-08 Yes [id number] 400mg Take 1 [facility] 400 mg 0-04 9100 capsule by ity of capsule 00:00: mouth in [place] the Medical morning Branch and 1 capsule at noon and 1 capsule in the evening. tiZANidine 2021-08 Yes [id number] 4mg Take 1 [facility] 4 mg tablet 0-04 9100 tablet by ity of 00:00: mouth 3 (three) Medical times Branch daily as needed (muscle spasm). meloxicam 2021-08 Yes [id number] 15mg Take 1 [facility] 15 mg 0-04 tablet by ity of tablet 00:00: mouth in [place] the Medical morning. Branch gabapentin 2021-08 Yes [id number] 400mg Take 1 [facility] 400 mg 0-04 9100 capsule by ity of capsule 00:00: mouth in [place] the Medical morning Branch and 1 capsule at noon and 1 capsule in the evening. tiZANidine 2021-08 Yes [id number] 4mg Take 1 [facility] 4 mg tablet 0-04 9100 tablet by ity of 00:00: mouth 3 [place] (three) Medical times Branch daily as needed (muscle spasm). meloxicam 2021-08 Yes [id number] 15mg Take 1 [facility] 15 mg 0-04 tablet by ity of tablet 00:00: mouth in [place] the Medical morning. Branch gabapentin 2021-08 Yes [id number] 400mg Take 1 [facility] 400 mg 0-04 9100 capsule by ity of capsule 00:00: mouth in [place] the Medical morning Branch and 1 capsule at noon and 1 capsule in the evening. tiZANidine 2021-08 Yes [id number] 4mg Take 1 [facility] 4 mg tablet 0-04 9100 tablet by ity of 00:00: mouth 3 [place] (three) Medical times Branch daily as needed (muscle spasm). meloxicam 2021-08 Yes [id number] 15mg Take 1 [facility] 15 mg 0-04 tablet by ity of tablet 00:00: mouth in [place] the Medical morning. Branch gabapentin 2021-08 Yes [id number] 400mg Take 1 [facility] 400 mg 0-04 9100 capsule by ity of capsule 00:00: mouth in [place] the Medical morning Branch and 1 capsule at noon and 1 capsule in the evening. tiZANidine 2021-08 Yes [id number] 4mg Take 1 [facility] 4 mg tablet 0-04 9100 tablet by ity of 00:00: mouth 3 [place] 00 (three) Medical times Branch daily as needed (muscle spasm). meloxicam 2021-08 Yes [id number] 15mg Take 1 [facility] 15 mg 0-04 tablet by ity of tablet 00:00: mouth in [place] the Medical morning. Branch gabapentin 2021-08 Yes [id number] 400mg Take 1 [facility] 400 mg 0-04 9100 capsule by ity of capsule 00:00: mouth in [place] 00 the Medical morning Branch and 1 capsule at noon and 1 capsule in the evening. tiZANidine 2021-08 Yes [id number] 4mg Take 1 [facility] 4 mg tablet 0-04 9100 tablet by ity of 00:00: mouth 3 [place] (three) Medical times [place] daily as needed (muscle spasm). meloxicam 2021-08 Yes [id number] 15mg Take 1 [facility] 15 mg 0-04 tablet by ity of tablet 00:00: mouth in [place] the Medical morning. Branch gabapentin 2021-08 Yes [id number] 400mg Take 1 [facility] 400 mg 0-04 9100 capsule by ity of capsule 00:00: mouth in [place] the Medical morning Branch and 1 capsule at noon and 1 capsule in the evening. tiZANidine 2021-08 Yes [id number] 4mg Take 1 [facility] 4 mg tablet 0-04 9100 tablet by ity of 00:00: mouth 3 [place] (three) Medical times [place] daily as needed (muscle spasm). meloxicam 2021-08 Yes [id number] 15mg Take 1 [facility] 15 mg 0-04 tablet by ity of tablet 00:00: mouth in [place] the Medical morning. Branch gabapentin 2021-08 Yes [id number] 400mg Take 1 [facility] 400 mg 0-04 9100 capsule by ity of capsule 00:00: mouth in [place] the Medical morning Branch and 1 capsule at noon and 1 capsule in the evening. tiZANidine 2021-08 Yes [id number] 4mg Take 1 [facility] 4 mg tablet 0-04 9100 tablet by ity of 00:00: mouth 3 [place] 00 (three) Medical times [place] daily as needed (muscle spasm). meloxicam 2021-08 Yes [id number] 15mg Take 1 [facility] 15 mg 0-04 tablet by ity of tablet 00:00: mouth in [place] the Medical morning. Branch gabapentin 2021-08- No [id number] 400mg Take 1 [facility] 400 mg 0-04 03-14 9100 capsule by ity of capsule 00:00: 00:00 mouth in [place] 00 :00 the Medical morning Branch and 1 capsule at noon and 1 capsule in the evening. gabapentin 2021-08- No [id number] 400mg Take 1 [facility] 400 mg 0-14 9100 capsule by ity of capsule 00:00: 00:00 mouth in [place] 00 :00 the Medical morning Branch and 1 capsule at noon and 1 capsule in the evening. tiZANidine 2021-08- No [id number] 4mg Take 1 [facility] 4 mg tablet 010-01 9100 tablet by it y of 00:00: 00:00 mouth 3 [place] 00 :00 (three) Medical times Branch daily as needed (muscle spasm). meloxicam 2021-08- No [id number] 15mg Take 1 U nivers 15 mg 0-04 02-03 tablet by ity of tablet 00:00: 00:00 mouth in [place] 00 :00 the Medical morning. [place] meloxicam 2021-08- No [id number] 15mg Take 1 U nivers 15 mg 0-04 02-03 tablet by ity of tablet 00:00: 00:00 mouth in [place] 00 :00 the Medical morning. [place] meloxicam 2021-08- No [id number] 15mg Take 1 U nivers 15 mg 0-04 02-03 tablet by ity of tablet 00:00: 00:00 mouth in [place] 00 :00 the Medical morning. [place] meloxicam 2021-08- No [id number] 15mg Take 1 U nivers 15 mg 0-04 02-03 tablet by ity of tablet 00:00: 00:00 mouth in [place] 00 :00 the Medical morning. [place] metformin Yes [id number] TAKE 2 U nivers ER 500 mg 9-09 TABLETS BY ity of 24 hr 00:00: MOUTH ONCE [place] tablet 00 DAILY IN Medical THE Branch MORNING AND 3 ONCE DAILY IN THE EVENING. dulaglutide Yes [id number] .75mg inject 1 [facility] (TRULICITY) - Pen under ity of 0.75 mg/0.5 00:00: the skin [place] mL PnIj 00 weekly. [facility] Branch metformin Yes [id number] TAKE 2 U nivers ER 500 mg 9-09 TABLETS BY ity of 24 hr 00:00: MOUTH ONCE [place] tablet 00 DAILY IN [facility] MORNING AND 3 ONCE DAILY IN THE EVENING. dulaglutide Yes [id number] .75mg inject 1 [facility] (TRULICITY) 9-09 Pen under ity of 0.75 mg/0.5 00:00: the skin [place] mL PnIj 00 weekly. [facility] metformin Yes [id number] TAKE 2 U nivers ER 500 mg 9-09 TABLETS BY ity of 24 hr 00:00: MOUTH ONCE [place] tablet 00 DAILY IN [facility] MORNING AND 3 ONCE DAILY IN THE EVENING. dulaglutide Yes [id number] .75mg inject 1 [facility] (TRULICITY) 9-09 Pen under ity of 0.75 mg/0.5 00:00: the skin [place] mL PnIj 00 weekly. [facility] metformin Yes [id number] TAKE 2 U nivers ER 500 mg 9-09 TABLETS BY ity of 24 hr 00:00: MOUTH ONCE [place] tablet 00 DAILY IN [facility] MORNING AND 3 ONCE DAILY IN THE EVENING. dulaglutide Yes [id number] .75mg inject 1 [facility] (TRULICITY) 9-09 Pen under ity of 0.75 mg/0.5 00:00: the skin [place] mL PnIj 00 weekly. [facility] metformin Yes [id number] TAKE 2 U nivers ER 500 mg 9-09 TABLETS BY ity of 24 hr 00:00: MOUTH ONCE [place] tablet 00 DAILY IN [facility] MORNING AND 3 ONCE DAILY IN THE EVENING. hydrOXYzine Yes [id number] 25mg Take 1 [facility] 25 mg 9-09 tablet by ity of tablet 00:00: mouth [place] 00 every 8 Medical (eight) [place] hours as needed for Itching. dulaglutide Yes [id number] .75mg inject 1 [facility] (TRULICITY) 9-09 Pen under ity of 0.75 mg/0.5 00:00: the skin [place] mL PnIj 00 weekly. [facility] metformin Yes [id number] TAKE 2 U nivers ER 500 mg 9-09 TABLETS BY ity of 24 hr 00:00: MOUTH ONCE [place] tablet 00 DAILY IN [facility] MORNING AND 3 ONCE DAILY IN THE EVENING. hydrOXYzine 2022-0 Yes [id number] 25mg Take 1 [facility] 25 mg 9-09 tablet by ity of tablet 00:00: mouth [place] 00 every 8 Medical (eight) Branch hours as needed for Itching. dulaglutide 2021-0 Yes [id number] .75mg inject 1 [facility] (TRULICITY) 9-09 Pen under ity of 0.75 mg/0.5 00:00: the skin [place] mL PnIj 00 weekly. [facility] metformin 2021-0 Yes [id number] TAKE 2 U nivers ER 500 mg 9-09 TABLETS BY ity of 24 hr 00:00: MOUTH ONCE [place] tablet 00 DAILY IN [facility] MORNING AND 3 ONCE DAILY IN THE EVENING. hydrOXYzine 2021-0 Yes [id number] 25mg Take 1 [facility] 25 mg 9-09 tablet by ity of tablet 00:00: mouth [place] 00 every 8 Medical (eight) Branch hours as needed for Itching. dulaglutide 2021-0 Yes [id number] .75mg inject 1 [facility] (TRULICITY) 9-09 Pen under ity of 0.75 mg/0.5 00:00: the skin [place] mL PnIj 00 weekly. [facility] metformin 2021-0 Yes [id number] TAKE 2 U nivers ER 500 mg 9-09 TABLETS BY ity of 24 hr 00:00: MOUTH ONCE [place] tablet 00 DAILY IN [facility] MORNING AND 3 ONCE DAILY IN THE EVENING. hydrOXYzine 2021-0 Yes [id number] 25mg Take 1 [facility] 25 mg 9-09 tablet by ity of tablet 00:00: mouth [place] 00 every 8 Medical (eight) Branch hours as needed for Itching. dulaglutide 2021-0 Yes [id number] .75mg inject 1 [facility] (TRULICITY) 9-09 Pen under ity of 0.75 mg/0.5 00:00: the skin [place] mL PnIj 00 weekly. [facility] metformin 2021-0 Yes [id number] TAKE 2 U nivers ER 500 mg 9-09 TABLETS BY ity of 24 hr 00:00: MOUTH ONCE [place] tablet 00 DAILY IN [facility] MORNING AND 3 ONCE DAILY IN THE EVENING. hydrOXYzine 2021-0 Yes [id number] 25mg Take 1 [facility] 25 mg 9-09 tablet by ity of tablet 00:00: mouth [place] 00 every 8 Medical (eight) Branch hours as needed for Itching. dulaglutide 2021-0 Yes [id number] .75mg inject 1 [facility] (TRULICITY) 9-09 Pen under ity of 0.75 mg/0.5 00:00: the skin [place] mL PnIj 00 weekly. [facility] metformin 2021-0 Yes [id number] TAKE 2 U nivers ER 500 mg 9-09 TABLETS BY ity of 24 hr 00:00: MOUTH ONCE [place] tablet 00 DAILY IN [facility] MORNING AND 3 ONCE DAILY IN THE EVENING. hydrOXYzine 2021-0 Yes [id number] 25mg Take 1 [facility] 25 mg 9-09 tablet by ity of tablet 00:00: mouth [place] 00 every 8 Medical (eight) Branch hours as needed for Itching. dulaglutide 2021-0 Yes [id number] .75mg inject 1 [facility] (TRULICITY) 9-09 Pen under ity of 0.75 mg/0.5 00:00: the skin [place] mL PnIj 00 weekly. [facility] metformin 2021-0 Yes [id number] TAKE 2 U nivers ER 500 mg 9-09 TABLETS BY ity of 24 hr 00:00: MOUTH ONCE [place] tablet 00 DAILY IN [facility] MORNING AND 3 ONCE DAILY IN THE EVENING. hydrOXYzine 2021-0 Yes [id number] 25mg Take 1 [facility] 25 mg 9-09 tablet by ity of tablet 00:00: mouth [place] 00 every 8 Medical (eight) Branch hours as needed for Itching. dulaglutide 2021-0 Yes [id number] .75mg inject 1 [facility] (TRULICITY) 9-09 Pen under ity of 0.75 mg/0.5 00:00: the skin [place] mL PnIj 00 weekly. [facility] metformin 0 Yes [id number] TAKE 2 U nivers [place] 500 mg 9-09 TABLETS BY ity of 24 hr 00:00: MOUTH ONCE [place] tablet 00 DAILY IN [facility] MORNING AND 3 ONCE DAILY IN THE EVENING. hydrOXYzine 2021-0 Yes [id number] 25mg Take 1 [facility] 25 mg 9-09 tablet by ity of tablet 00:00: mouth [place] 00 every 8 Medical (eight) Branch hours as needed for Itching. dulaglutide 2021-0 Yes [id number] .75mg inject 1 [facility] (TRULICITY) 9-09 Pen under ity of 0.75 mg/0.5 00:00: the skin [place] mL PnIj 00 weekly. [facility] metformin 0 Yes [id number] TAKE 2 U nivers ER 500 mg 9-09 TABLETS BY ity of 24 hr 00:00: MOUTH ONCE [place] tablet 00 DAILY IN [facility] MORNING AND 3 ONCE DAILY IN THE EVENING. hydrOXYzine 2021-0 Yes [id number] 25mg Take 1 [facility] 25 mg 9-09 tablet by ity of tablet 00:00: mouth [place] 00 every 8 Medical (eight) Branch hours as needed for Itching. dulaglutide 0 Yes [id number] .75mg inject 1 [facility] (TRULICITY) 9-09 Pen under ity of 0.75 mg/0.5 00:00: the skin [place] mL PnIj 00 weekly. [facility] metformin 0 Yes [id number] TAKE 2 U nivers ER 500 mg 9-09 TABLETS BY ity of 24 hr 00:00: MOUTH ONCE [place] tablet 00 DAILY IN [facility] MORNING AND 3 ONCE DAILY IN THE EVENING. hydrOXYzine 2021-0 Yes [id number] 25mg Take 1 [facility] 25 mg 9-09 tablet by ity of tablet 00:00: mouth [place] 00 every 8 Medical (eight) Branch hours as needed for Itching. dulaglutide 0 Yes [id number] .75mg inject 1 [facility] (TRULICITY) 9-09 Pen under ity of 0.75 mg/0.5 00:00: the skin [place] mL PnIj 00 weekly. [facility] metformin 2021-0 Yes [id number] TAKE 2 U nivers ER 500 mg 9-09 TABLETS BY ity of 24 hr 00:00: MOUTH ONCE [place] tablet 00 DAILY IN [facility] MORNING AND 3 ONCE DAILY IN THE EVENING. hydrOXYzine 2021-0 Yes [id number] 25mg Take 1 [facility] 25 mg 9-09 tablet by ity of tablet 00:00: mouth [place] 00 every 8 Medical (eight) Branch hours as needed for Itching. dulaglutide 2021-0 Yes [id number] .75mg inject 1 [facility] (TRULICITY) 9-09 Pen under ity of 0.75 mg/0.5 00:00: the skin [place] mL PnIj 00 weekly. [facility] metformin 0 Yes [id number] TAKE 2 U nivers ER 500 mg 9-09 TABLETS BY ity of 24 hr 00:00: MOUTH ONCE [place] tablet 00 DAILY IN [facility] MORNING AND 3 ONCE DAILY IN THE EVENING. hydrOXYzine 2021-0 Yes [id number] 25mg Take 1 [facility] 25 mg 9-09 tablet by ity of tablet 00:00: mouth [place] 00 every 8 Medical (eight) Branch hours as needed for Itching. dulaglutide 0 Yes [id number] .75mg inject 1 [facility] (TRULICITY) 9-09 Pen under ity of 0.75 mg/0.5 00:00: the skin [place] mL PnIj 00 weekly. [facility] metformin 0 Yes [id number] TAKE 2 U nivers ER 500 mg 9-09 TABLETS BY ity of 24 hr 00:00: MOUTH ONCE [place] tablet 00 DAILY IN [facility] MORNING AND 3 ONCE DAILY IN THE EVENING. hydrOXYzine 2021-0 Yes [id number] 25mg Take 1 [facility] 25 mg 9-09 tablet by ity of tablet 00:00: mouth [place] 00 every 8 Medical (eight) Branch hours as needed for Itching. dulaglutide 0 Yes [id number] .75mg inject 1 [facility] (TRULICITY) 9-09 Pen under ity of 0.75 mg/0.5 00:00: the skin [place] mL PnIj 00 weekly. [facility] metformin 2021-0 Yes [id number] TAKE 2 U nivers ER 500 mg 9-09 TABLETS BY ity of 24 hr 00:00: MOUTH ONCE [place] tablet 00 DAILY IN [facility] MORNING AND 3 ONCE DAILY IN THE EVENING. hydrOXYzine 2021-0 Yes [id number] 25mg Take 1 [facility] 25 mg 9-09 tablet by ity of tablet 00:00: mouth [place] 00 every 8 Medical (eight) Branch hours as needed for Itching. dulaglutide 2021-0 Yes [id number] .75mg inject 1 [facility] (TRULICITY) 9-09 Pen under ity of 0.75 mg/0.5 00:00: the skin [place] mL PnIj 00 weekly. [facility] metformin 2021-0 Yes [id number] TAKE 2 U nivers ER 500 mg 9-09 TABLETS BY ity of 24 hr 00:00: MOUTH ONCE [place] tablet 00 DAILY IN [facility] MORNING AND 3 ONCE DAILY IN THE EVENING. hydrOXYzine 2021-0 Yes [id number] 25mg Take 1 [facility] 25 mg 9-09 tablet by ity of tablet 00:00: mouth [place] 00 every 8 Medical (eight) Branch hours as needed for Itching. dulaglutide 2021-0 Yes [id number] .75mg inject 1 [facility] (TRULICITY) 9-09 Pen under ity of 0.75 mg/0.5 00:00: the skin [place] mL PnIj 00 weekly. [facility] metformin 2021-0 Yes [id number] TAKE 2 U nivers ER 500 mg 9-09 TABLETS BY ity of 24 hr 00:00: MOUTH ONCE [place] tablet 00 DAILY IN [facility] MORNING AND 3 ONCE DAILY IN THE EVENING. hydrOXYzine 2021-0 Yes [id number] 25mg Take 1 [facility] 25 mg 9-09 tablet by ity of tablet 00:00: mouth [place] 00 every 8 [facility] (eight) Branch hours as needed for Itching. dulaglutide 2021-0 Yes [id number] .75mg inject 1 [facility] (TRULICITY) 9-09 Pen under ity of 0.75 mg/0.5 00:00: the skin [place] mL PnIj 00 weekly. [facility] metformin 2021-0 Yes [id number] TAKE 2 U nivers ER 500 mg 9-09 TABLETS BY ity of 24 hr 00:00: MOUTH ONCE [place] tablet 00 DAILY IN [facility] MORNING AND 3 ONCE DAILY IN THE EVENING. hydrOXYzine 2021-0 Yes [id number] 25mg Take 1 [facility] 25 mg 9-09 tablet by ity of tablet 00:00: mouth [place] 00 every 8 [facility] (eight) Branch hours as needed for Itching. dulaglutide 2021-0 Yes [id number] .75mg inject 1 [facility] (TRULICITY) 9-09 Pen under ity of 0.75 mg/0.5 00:00: the skin [place] mL PnIj 00 weekly. [facility] metformin 2021-0 Yes [id number] TAKE 2 U nivers ER 500 mg 9-09 TABLETS BY ity of 24 hr 00:00: MOUTH ONCE [place] tablet 00 DAILY IN [facility] MORNING AND 3 ONCE DAILY IN THE EVENING. dulaglutide 2021-0 Yes [id number] .75mg inject 1 [facility] (TRULICITY) 9-09 Pen under ity of 0.75 mg/0.5 00:00: the skin [place] mL PnIj 00 weekly. [facility] metformin Yes [id number] TAKE 2 U nivers ER 500 mg 9-09 TABLETS BY ity of 24 hr 00:00: MOUTH ONCE [place] tablet 00 DAILY IN [facility] MORNING AND 3 ONCE DAILY IN THE EVENING. dulaglutide Yes [id number] .75mg inject 1 [facility] (TRULICITY) 9-09 Pen under ity of 0.75 mg/0.5 00:00: the skin [place] mL PnIj 00 weekly. [facility] metformin Yes [id number] TAKE 2 U nivers ER 500 mg 9-09 TABLETS BY ity of 24 hr 00:00: MOUTH ONCE [place] tablet 00 DAILY IN [facility] MORNING AND 3 ONCE DAILY IN THE EVENING. dulaglutide Yes [id number] .75mg inject 1 [facility] (TRULICITY) 9-09 Pen under ity of 0.75 mg/0.5 00:00: the skin [place] mL PnIj 00 weekly. [facility] metformin Yes [id number] TAKE 2 U nivers ER 500 mg 9-09 TABLETS BY ity of 24 hr 00:00: MOUTH ONCE [place] tablet 00 DAILY IN [facility] MORNING AND 3 ONCE DAILY IN THE EVENING. dulaglutide Yes [id number] .75mg inject 1 [facility] (TRULICITY) 9-09 Pen under ity of 0.75 mg/0.5 00:00: the skin [place] mL PnIj 00 weekly. [facility] metformin Yes [id number] TAKE 2 U nivers ER 500 mg 9-09 TABLETS BY ity of 24 hr 00:00: MOUTH ONCE [place] tablet 00 DAILY IN [facility] MORNING AND 3 ONCE DAILY IN THE EVENING. dulaglutide Yes [id number] .75mg inject 1 [facility] (TRULICITY) 9-09 Pen under ity of 0.75 mg/0.5 00:00: the skin [place] mL PnIj 00 weekly. [facility] metformin Yes [id number] TAKE 2 U nivers ER 500 mg 9-09 TABLETS BY ity of 24 hr 00:00: MOUTH ONCE [place] tablet 00 DAILY IN [facility] MORNING AND 3 ONCE DAILY IN THE EVENING. dulaglutide Yes [id number] .75mg inject 1 [facility] (TRULICITY) 9-09 Pen under ity of 0.75 mg/0.5 00:00: the skin [place] mL PnIj 00 weekly. [facility] metformin Yes [id number] TAKE 2 U nivers ER 500 mg 9-09 TABLETS BY ity of 24 hr 00:00: MOUTH ONCE [place] tablet 00 DAILY IN [facility] MORNING AND 3 ONCE DAILY IN THE EVENING. dulaglutide Yes [id number] .75mg inject 1 [facility] (TRULICITY) 9-09 Pen under ity of 0.75 mg/0.5 00:00: the skin [place] mL PnIj 00 weekly. [facility] metformin Yes [id number] TAKE 2 U nivers ER 500 mg 9-09 TABLETS BY ity of 24 hr 00:00: MOUTH ONCE [place] tablet 00 DAILY IN [facility] MORNING AND 3 ONCE DAILY IN THE EVENING. dulaglutide Yes [id number] .75mg inject 1 [facility] (TRULICITY) 9-09 Pen under ity of 0.75 mg/0.5 00:00: the skin [place] mL PnIj 00 weekly. [facility] metformin Yes [id number] TAKE 2 U nivers ER 500 mg 9-09 TABLETS BY ity of 24 hr 00:00: MOUTH ONCE [place] tablet 00 DAILY IN [facility] MORNING AND 3 ONCE DAILY IN THE EVENING. dulaglutide Yes [id number] .75mg inject 1 [facility] (TRULICITY) 9-09 Pen under ity of 0.75 mg/0.5 00:00: the skin [place] mL PnIj 00 weekly. [facility] metformin Yes [id number] TAKE 2 U nivers ER 500 mg 9-09 TABLETS BY ity of 24 hr 00:00: MOUTH ONCE [place] tablet 00 DAILY IN [facility] MORNING AND 3 ONCE DAILY IN THE EVENING. dulaglutide Yes [id number] .75mg inject 1 [facility] (TRULICITY) 9-09 Pen under ity of 0.75 mg/0.5 00:00: the skin [place] mL PnIj 00 weekly. [facility] metformin Yes [id number] TAKE 2 U nivers ER 500 mg 9-09 TABLETS BY ity of 24 hr 00:00: MOUTH ONCE [place] tablet 00 DAILY IN [facility] MORNING AND 3 ONCE DAILY IN THE EVENING. dulaglutide Yes [id number] .75mg inject 1 [facility] (TRULICITY) 9-09 Pen under ity of 0.75 mg/0.5 00:00: the skin [place] mL PnIj 00 weekly. [facility] metformin Yes [id number] TAKE 2 U nivers ER 500 mg 9-09 TABLETS BY ity of 24 hr 00:00: MOUTH ONCE [place] tablet 00 DAILY IN [facility] MORNING AND 3 ONCE DAILY IN THE EVENING. dulaglutide Yes [id number] .75mg inject 1 [facility] (TRULICITY) 9-09 Pen under ity of 0.75 mg/0.5 00:00: the skin [place] mL PnIj 00 weekly. [facility] metformin Yes [id number] TAKE 2 U nivers ER 500 mg 9-09 TABLETS BY ity of 24 hr 00:00: MOUTH ONCE [place] tablet 00 DAILY IN [facility] MORNING AND 3 ONCE DAILY IN THE EVENING. dulaglutide Yes [id number] .75mg inject 1 [facility] (TRULICITY) 9-09 Pen under ity of 0.75 mg/0.5 00:00: the skin [place] mL PnIj 00 weekly. [facility] metformin Yes [id number] TAKE 2 U nivers ER 500 mg 9-09 TABLETS BY ity of 24 hr 00:00: MOUTH ONCE [place] tablet 00 DAILY IN [facility] MORNING AND 3 ONCE DAILY IN THE EVENING. dulaglutide Yes [id number] .75mg inject 1 [facility] (TRULICITY) 9-09 Pen under ity of 0.75 mg/0.5 00:00: the skin [place] mL PnIj 00 weekly. [facility] metformin Yes [id number] TAKE 2 U nivers ER 500 mg 9-09 TABLETS BY ity of 24 hr 00:00: MOUTH ONCE [place] tablet 00 DAILY IN [facility] MORNING AND 3 ONCE DAILY IN THE EVENING. dulaglutide 0 Yes [id number] .75mg inject 1 [facility] (TRULICITY) 9-09 Pen under ity of 0.75 mg/0.5 00:00: the skin [place] mL PnIj 00 weekly. [facility] metformin Yes [id number] TAKE 2 U nivers ER 500 mg 9-09 TABLETS BY ity of 24 hr 00:00: MOUTH ONCE [place] tablet 00 DAILY IN [facility] MORNING AND 3 ONCE DAILY IN THE EVENING. dulaglutide Yes [id number] .75mg inject 1 [facility] (TRULICITY) 9-09 Pen under ity of 0.75 mg/0.5 00:00: the skin [place] mL PnIj 00 weekly. [facility] metformin Yes [id number] TAKE 2 U nivers ER 500 mg 9-09 TABLETS BY ity of 24 hr 00:00: MOUTH ONCE [place] tablet 00 DAILY IN [facility] MORNING AND 3 ONCE DAILY IN THE EVENING. dulaglutide Yes [id number] .75mg inject 1 [facility] (TRULICITY) 9-09 Pen under ity of 0.75 mg/0.5 00:00: the skin [place] mL PnIj 00 weekly. [facility] metformin Yes [id number] TAKE 2 U nivers ER 500 mg 9-09 TABLETS BY ity of 24 hr 00:00: MOUTH ONCE [place] tablet 00 DAILY IN [facility] MORNING AND 3 ONCE DAILY IN THE EVENING. dulaglutide Yes [id number] .75mg inject 1 [facility] (TRULICITY) 9-09 Pen under ity of 0.75 mg/0.5 00:00: the skin [place] mL PnIj 00 weekly. [facility] metformin Yes [id number] TAKE 2 U nivers ER 500 mg 9-09 TABLETS BY ity of 24 hr 00:00: MOUTH ONCE [place] tablet 00 DAILY IN [facility] MORNING AND 3 ONCE DAILY IN THE EVENING. dulaglutide Yes [id number] .75mg inject 1 [facility] (TRULICITY) 9-09 Pen under ity of 0.75 mg/0.5 00:00: the skin [place] mL PnIj 00 weekly. [facility] metformin Yes [id number] TAKE 2 U nivers ER 500 mg 9-09 TABLETS BY ity of 24 hr 00:00: MOUTH ONCE [place] tablet 00 DAILY IN [facility] MORNING AND 3 ONCE DAILY IN THE EVENING. dulaglutide 0 Yes [id number] .75mg inject 1 [facility] (TRULICITY) 9-09 Pen under ity of 0.75 mg/0.5 00:00: the skin [place] mL PnIj 00 weekly. [facility] metformin Yes [id number] TAKE 2 U nivers ER 500 mg 9-09 TABLETS BY ity of 24 hr 00:00: MOUTH ONCE [place] tablet 00 DAILY IN [facility] MORNING AND 3 ONCE DAILY IN THE EVENING. dulaglutide Yes [id number] .75mg inject 1 [facility] (TRULICITY) 9-09 Pen under ity of 0.75 mg/0.5 00:00: the skin [place] mL PnIj 00 weekly. [facility] metformin Yes [id number] TAKE 2 U nivers ER 500 mg 9-09 TABLETS BY ity of 24 hr 00:00: MOUTH ONCE [place] tablet 00 DAILY IN [facility] MORNING AND 3 ONCE DAILY IN THE EVENING. dulaglutide Yes [id number] .75mg inject 1 [facility] (TRULICITY) 9-09 Pen under ity of 0.75 mg/0.5 00:00: the skin [place] mL PnIj 00 weekly. [facility] metformin Yes [id number] TAKE 2 U nivers ER 500 mg 9-09 TABLETS BY ity of 24 hr 00:00: MOUTH ONCE [place] tablet 00 DAILY IN [facility] MORNING AND 3 ONCE DAILY IN THE EVENING. dulaglutide Yes [id number] .75mg inject 1 [facility] (TRULICITY) 9-09 Pen under ity of 0.75 mg/0.5 00:00: the skin [place] mL PnIj 00 weekly. [facility] metformin Yes [id number] TAKE 2 U nivers ER 500 mg 9-09 TABLETS BY ity of 24 hr 00:00: MOUTH ONCE [place] tablet 00 DAILY IN [facility] MORNING AND 3 ONCE DAILY IN THE EVENING. dulaglutide Yes [id number] .75mg inject 1 [facility] (TRULICITY) 9-09 Pen under ity of 0.75 mg/0.5 00:00: the skin [place] mL PnIj 00 weekly. [facility] metformin 2021- Yes [id number] TAKE 2 U nivers ER 500 mg 9-09 TABLETS BY ity of 24 hr 00:00: MOUTH ONCE [place] tablet 00 DAILY IN [facility] MORNING AND 3 ONCE DAILY IN THE EVENING. dulaglutide Yes [id number] .75mg inject 1 [facility] (TRULICITY) 9-09 Pen under ity of 0.75 mg/0.5 00:00: the skin [place] mL PnIj 00 weekly. [facility] metformin Yes [id number] TAKE 2 U nivers ER 500 mg 9-09 TABLETS BY ity of 24 hr 00:00: MOUTH ONCE [place] tablet 00 DAILY IN [facility] MORNING AND 3 ONCE DAILY IN THE EVENING. dulaglutide Yes [id number] .75mg inject 1 [facility] (TRULICITY) 9-09 Pen under ity of 0.75 mg/0.5 00:00: the skin [place] mL PnIj 00 weekly. [facility] metformin Yes [id number] TAKE 2 U nivers ER 500 mg 9-09 TABLETS BY ity of 24 hr 00:00: MOUTH ONCE [place] tablet 00 DAILY IN [facility] MORNING AND 3 ONCE DAILY IN THE EVENING. dulaglutide Yes [id number] .75mg inject 1 [facility] (TRULICITY) 9-09 Pen under ity of 0.75 mg/0.5 00:00: the skin [place] mL PnIj 00 weekly. [facility] metformin Yes [id number] TAKE 2 U nivers ER 500 mg 9-09 TABLETS BY ity of 24 hr 00:00: MOUTH ONCE [place] tablet 00 DAILY IN [facility] MORNING AND 3 ONCE DAILY IN THE EVENING. dulaglutide Yes [id number] .75mg inject 1 [facility] (TRULICITY) 9-09 Pen under ity of 0.75 mg/0.5 00:00: the skin [place] mL PnIj 00 weekly. [facility] metformin Yes [id number] TAKE 2 U nivers ER 500 mg 9-09 TABLETS BY ity of 24 hr 00:00: MOUTH ONCE [place] tablet 00 DAILY IN [facility] MORNING AND 3 ONCE DAILY IN THE EVENING. dulaglutide Yes [id number] .75mg inject 1 [facility] (TRULICITY) 9-09 Pen under ity of 0.75 mg/0.5 00:00: the skin [place] mL PnIj 00 weekly. [facility] metformin Yes [id number] TAKE 2 U nivers ER 500 mg 9-09 TABLETS BY ity of 24 hr 00:00: MOUTH ONCE [place] tablet 00 DAILY IN [facility] MORNING AND 3 ONCE DAILY IN THE EVENING. dulaglutide 0 Yes [id number] .75mg inject 1 [facility] (TRULICITY) 9-09 Pen under ity of 0.75 mg/0.5 00:00: the skin [place] mL PnIj 00 weekly. [facility] metformin Yes [id number] TAKE 2 U nivers ER 500 mg 9-09 TABLETS BY ity of 24 hr 00:00: MOUTH ONCE [place] tablet 00 DAILY IN [facility] MORNING AND 3 ONCE DAILY IN THE EVENING. dulaglutide Yes [id number] .75mg inject 1 [facility] (TRULICITY) 9-09 Pen under ity of 0.75 mg/0.5 00:00: the skin [place] mL PnIj 00 weekly. [facility] metformin Yes [id number] TAKE 2 U nivers ER 500 mg 9-09 TABLETS BY ity of 24 hr 00:00: MOUTH ONCE [place] tablet 00 DAILY IN [facility] MORNING AND 3 ONCE DAILY IN THE EVENING. dulaglutide Yes [id number] .75mg inject 1 [facility] (TRULICITY) 9-09 Pen under ity of 0.75 mg/0.5 00:00: the skin [place] mL PnIj 00 weekly. [facility] metformin Yes [id number] TAKE 2 U nivers ER 500 mg 9-09 TABLETS BY ity of 24 hr 00:00: MOUTH ONCE [place] tablet 00 DAILY IN [facility] MORNING AND 3 ONCE DAILY IN THE EVENING. dulaglutide 0 Yes [id number] .75mg inject 1 [facility] (TRULICITY) 9-09 Pen under ity of 0.75 mg/0.5 00:00: the skin [place] mL PnIj 00 weekly. [facility] metformin Yes [id number] TAKE 2 U nivers ER 500 mg 9-09 TABLETS BY ity of 24 hr 00:00: MOUTH ONCE [place] tablet 00 DAILY IN [facility] MORNING AND 3 ONCE DAILY IN THE EVENING. dulaglutide 0 Yes [id number] .75mg inject 1 [facility] (TRULICITY) 9-09 Pen under ity of 0.75 mg/0.5 00:00: the skin [place] mL PnIj 00 weekly. [facility] metformin Yes [id number] TAKE 2 U nivers ER 500 mg 04-21 TABLETS BY ity of 24 hr 00:00: MOUTH ONCE [place] tablet 00 DAILY IN [facility] MORNING AND 3 ONCE DAILY IN THE EVENING. dulaglutide Yes [id number] .75mg inject 1 [facility] (TRULICITY) 04-21 Pen under ity of 0.75 mg/0.5 00:00: the skin [place] mL PnIj 00 weekly. [facility] metformin 2022- No [id number] TAKE 2 [facility] ER 500 mg 04-21 TABLETS BY ity of 24 hr 00:00: 00:00 MOUTH ONCE [place] tablet 00 :00 DAILY IN [facility] MORNING AND 3 ONCE DAILY IN THE EVENING. dulaglutide 2022- No [id number] .75mg inject 1 [facility] (TRULICITY) 04-21 Pen under it y of 0.75 mg/0.5 00:00: 00:00 the skin [place] mL PnIj 00 :00 weekly. [facility] metformin 2022- No [id number] TAKE 2 [facility] ER 500 mg 04-21 TABLETS BY ity of 24 hr 00:00: 00:00 MOUTH ONCE [place] tablet 00 :00 DAILY IN [facility] MORNING AND 3 ONCE DAILY IN THE EVENING. dulaglutide 2022- No [id number] .75mg inject 1 [facility] (TRULICITY) 04-21 Pen under it y of 0.75 mg/0.5 00:00: 00:00 the skin [place] mL PnIj 00 :00 weekly. [facility] metformin 2022- No [id number] TAKE 2 [facility] ER 500 mg 04-21 TABLETS BY ity of 24 hr 00:00: 00:00 MOUTH ONCE [place] tablet 00 :00 DAILY IN [facility] MORNING AND 3 ONCE DAILY IN THE EVENING. dulaglutide 2022- No [id number] .75mg inject 1 [facility] (TRULICITY) 04-21 Pen under it y of 0.75 mg/0.5 00:00: 00:00 the skin [place] mL PnIj 00 :00 weekly. [facility] hydrOXYzine 2021- No [id number] 25mg Take 1 [facility] 25 mg 04-2116 tablet by ity of tablet 00:00: 00:00 mouth [place] 00 :00 every 8 Medical (eight) Branch hours as needed for Itching. insulin NPH Yes [id number] INJECT 20 [facility] (NOVOLIN N 9-06 UNITS ity of NPH U-100 00:00: SUBCUTANEO [place] INSULIN) 00 USLY ONCE Medica l 100 unit/mL DAILY WITH Br anch injection BREAKFAST insulin Yes [id number] INJECT 15 [facility] regular 9-06 UNITS ity of human 00:00: SUBCUTANEO [place] (NOVOLIN R 00 USLY THREE Med ical REGULAR TIMES Branch U-100 DAILY INSULN) 100 BEFORE unit/mL MEAL(S) injection insulin NPH Yes [id number] INJECT 20 [facility] (NOVOLIN N 9-06 UNITS ity of NPH U-100 00:00: SUBCUTANEO [place] INSULIN) 00 USLY ONCE Medica l 100 unit/mL DAILY WITH Br anch injection BREAKFAST insulin Yes [id number] INJECT 15 [facility] regular 9-06 UNITS ity of human 00:00: SUBCUTANEO [place] (NOVOLIN R 00 USLY THREE Med ical REGULAR TIMES Branch U-100 DAILY INSULN) 100 BEFORE unit/mL MEAL(S) injection insulin NPH Yes [id number] INJECT 20 [facility] (NOVOLIN N 9-06 UNITS ity of NPH U-100 00:00: SUBCUTANEO [place] INSULIN) 00 USLY ONCE Medica l 100 unit/mL DAILY WITH Br anch injection BREAKFAST insulin Yes [id number] INJECT 15 [facility] regular 9-06 UNITS [facility]y of human 00:00: SUBCUTANEO [place] (NOVOLIN R 00 USLY THREE Med ical REGULAR TIMES Branch U-100 DAILY INSULN) 100 BEFORE unit/mL MEAL(S) injection insulin NPH Yes [id number] INJECT 20 [facility] (NOVOLIN N 9-06 UNITS ity of NPH U-100 00:00: [place] INSULIN[place] 00 USLY ONCE Med[facility] l 100 unit/mL DAILY WITH Br anch injection BREAKFAST insulin Yes [id number] INJECT 15 [facility] regular 9-06 UNITS ity of human 00:00: SUBCUTANEO [place] (NOVOLIN R 00 USLY THREE Med ical REGULAR TIMES Branch U-100 DAILY INSULN) 100 BEFORE unit/mL MEAL(S) injection ondansetron Yes [id number] DISSOLVE 1 [facility] 4 mg 9-06 TABLET IN ity of disintegrat 00:00: MOUTH [place] ing tablet 00 EVERY 8 Medica l HOURS Branch NEEDED FOR NAUSEA AND VOMITING FOR UP TO 4 DAYS insulin NPH Yes [id number] INJECT 20 [facility] (NOVOLIN N 9-06 UNITS ity of NPH U-100 00:00: [place] INSULIN[place] 00 USLY ONCE Med[facility] l 100 unit/mL DAILY WITH Br anch injection BREAKFAST insulin Yes [id number] INJECT 15 [facility] regular 9-06 UNITS ity of human 00:00: SUBCUTANEO [place] (NOVOLIN R 00 USLY THREE Med ical REGULAR TIMES Branch U-100 DAILY INSULN) 100 BEFORE unit/mL MEAL(S) injection gabapentin Yes [id number] 400mg Take 1 [facility] 400 mg 04-1800 capsule by ity of capsule 00:00: mouth in [place] the Medical morning Branch and 1 capsule at noon and 1 capsule in the evening. ondansetron Yes [id number] DISSOLVE 1 [facility] 4 mg 9-06 TABLET IN ity of disintegrat 00:00: MOUTH [place] ing tablet 00 EVERY 8 Medica l HOURS Branch NEEDED FOR NAUSEA AND VOMITING FOR UP TO 4 DAYS insulin NPH Yes [id number] INJECT 20 [facility] (NOVOLIN N 9-06 UNITS ity of NPH U-100 00:00: [place] INSULIN[place] 00 USLY ONCE Medica l 100 unit/mL DAILY WITH Br anch injection BREAKFAST insulin Yes [id number] INJECT 15 [facility] regular 9-06 UNITS ity of human 00:00: SUBCUTANEO [place] (NOVOLIN R 00 USLY THREE Med ical REGULAR TIMES Branch U-100 DAILY INSULN) 100 BEFORE unit/mL MEAL(S) injection gabapentin Yes [id number] 400mg Take 1 [facility] 400 mg 9- 9100 capsule by ity of capsule 00:00: mouth in [place] 00 the Medical morning Branch and 1 capsule at noon and 1 capsule in the evening. ondansetron Yes [id number] DISSOLVE 1 [facility] 4 mg 9-06 TABLET IN ity of disintegrat 00:00: MOUTH [place] ing tablet 00 EVERY 8 Medica l HOURS Branch NEEDED FOR NAUSEA AND VOMITING FOR UP TO 4 DAYS insulin NPH Yes [id number] INJECT 20 [facility] (NOVOLIN N 9-06 UNITS ity of NPH U-100 00:00: [place] INSULIN[place] 00 USLY ONCE Med[facility] l 100 unit/mL DAILY WITH Br anch injection BREAKFAST insulin Yes [id number] INJECT 15 [facility] regular 9-06 UNITS ity of human 00:00: SUBCUTANEO [place] (NOVOLIN R 00 USLY THREE Med ical REGULAR TIMES Branch U-100 DAILY INSULN) 100 BEFORE unit/mL MEAL(S) injection gabapentin Yes [id number] 400mg Take 1 [facility] 400 mg 9- 9100 capsule by ity of capsule 00:00: mouth in [place] 00 the Medical morning Branch and 1 capsule at noon and 1 capsule in the evening. ondansetron Yes [id number] DISSOLVE 1 [facility] 4 mg 9-06 TABLET IN ity of disintegrat 00:00: MOUTH [place] ing tablet 00 EVERY 8 Medica l HOURS Branch NEEDED FOR NAUSEA AND VOMITING FOR UP TO 4 DAYS insulin NPH Yes [id number] INJECT 20 [facility] (NOVOLIN N 9-06 UNITS ity of NPH U-100 00:00: [place] INSULIN) 00 USLY ONCE Med[facility] l 100 unit/mL DAILY WITH Br anch injection BREAKFAST insulin Yes [id number] INJECT 15 [facility] regular 9-06 UNITS ity of human 00:00: SUBCUTANEO [place] (NOVOLIN R 00 USLY THREE Med ical REGULAR TIMES Branch U-100 DAILY INSULN) 100 BEFORE unit/mL MEAL(S) injection gabapentin Yes [id number] 400mg Take 1 [facility] 400 mg 9- 9100 capsule by ity of capsule 00:00: mouth in [place] 00 the Medical morning Branch and 1 capsule at noon and 1 capsule in the evening. ondansetron Yes [id number] DISSOLVE 1 [facility] 4 mg 9-06 TABLET IN ity of disintegrat 00:00: MOUTH [place] ing tablet 00 EVERY 8 Medica l HOURS Branch NEEDED FOR NAUSEA AND VOMITING FOR UP TO 4 DAYS insulin NPH Yes [id number] INJECT 20 [facility] (NOVOLIN N 9-06 UNITS ity of NPH U-100 00:00: [place] INSULIN) 00 USLY ONCE Medica l 100 unit/mL DAILY WITH Br anch injection BREAKFAST insulin Yes [id number] INJECT 15 [facility] regular 9-06 UNITS ity of human 00:00: SUBCUTANEO [place] (NOVOLIN R 00 USLY THREE Med ical REGULAR TIMES Branch U-100 DAILY INSULN) 100 BEFORE unit/mL MEAL(S) injection gabapentin Yes [id number] 400mg Take 1 [facility] 400 mg 04-18 9100 capsule by ity of capsule 00:00: mouth in [place] 00 the Medical morning Branch and 1 capsule at noon and 1 capsule in the evening. ondansetron Yes [id number] DISSOLVE 1 [facility] 4 mg 9-06 TABLET IN ity of disintegrat 00:00: MOUTH [place] ing tablet 00 EVERY 8 Medica l HOURS Branch NEEDED FOR NAUSEA AND VOMITING FOR UP TO 4 DAYS insulin NPH Yes [id number] INJECT 20 [facility] (NOVOLIN N 9-06 UNITS ity of NPH U-100 00:00: [place] INSULIN) 00 USLY ONCE Medica l 100 unit/mL DAILY WITH Br anch injection BREAKFAST insulin Yes [id number] INJECT 15 [facility] regular 9-06 UNITS ity of human 00:00: [facility] (NOVOLIN R 00 USLY THREE Med ical REGULAR TIMES Branch U-100 DAILY INSULN) 100 BEFORE unit/mL MEAL(S) injection ondansetron Yes [id number] DISSOLVE 1 [facility] 4 mg 9-06 TABLET IN ity of disintegrat 00:00: MOUTH [place] ing tablet 00 EVERY 8 Medica l HOURS Branch NEEDED FOR NAUSEA AND VOMITING FOR UP TO 4 DAYS insulin NPH Yes [id number] INJECT 20 [facility] (NOVOLIN N 9-06 UNITS ity of NPH U-100 00:00: [place] INSULIN) 00 USLY ONCE Medica l 100 unit/mL DAILY WITH Br anch injection BREAKFAST insulin Yes [id number] INJECT 15 [facility] regular 9-06 UNITS ity of human 00:00: SUBCUTANEO [place] (NOVOLIN R 00 USLY THREE Med ical REGULAR TIMES Branch U-100 DAILY INSULN) 100 BEFORE unit/mL MEAL(S) injection ondansetron Yes [id number] DISSOLVE 1 [facility] 4 mg 9-06 TABLET IN ity of disintegrat 00:00: MOUTH [place] ing tablet 00 EVERY 8 Medica l HOURS Branch NEEDED FOR NAUSEA AND VOMITING FOR UP TO 4 DAYS insulin NPH Yes [id number] INJECT 20 [facility] (NOVOLIN N 9-06 UNITS ity of NPH U-100 00:00: [place] INSULIN) 00 USLY ONCE Medica l 100 unit/mL DAILY WITH Br anch injection BREAKFAST insulin Yes [id number] INJECT 15 [facility] regular 9-06 UNITS ity of human 00:00: SUBCUTANEO [place] (NOVOLIN R 00 USLY THREE Med ical REGULAR TIMES Branch U-100 DAILY INSULN) 100 BEFORE unit/mL MEAL(S) injection ondansetron Yes [id number] DISSOLVE 1 [facility] 4 mg 9-06 TABLET IN ity of disintegrat 00:00: MOUTH [place] ing tablet 00 EVERY 8 Medica l HOURS Branch NEEDED FOR NAUSEA AND VOMITING FOR UP TO 4 DAYS insulin NPH Yes [id number] INJECT 20 [facility] (NOVOLIN N 9-06 UNITS ity of NPH U-100 00:00: [place] INSULIN) 00 USLY ONCE Medica l 100 unit/mL DAILY WITH Br anch injection BREAKFAST insulin Yes [id number] INJECT 15 [facility] regular 9-06 UNITS ity of human 00:00: SUBCUTANEO [place] (NOVOLIN R 00 USLY THREE Med ical REGULAR TIMES Branch U-100 DAILY INSULN) 100 BEFORE unit/mL MEAL(S) injection ondansetron Yes [id number] DISSOLVE 1 [facility] 4 mg 9-06 TABLET IN ity of disintegrat 00:00: MOUTH [place] ing tablet 00 EVERY 8 Medica l HOURS Branch NEEDED FOR NAUSEA AND VOMITING FOR UP TO 4 DAYS insulin NPH Yes [id number] INJECT 20 [facility] (NOVOLIN N 9-06 UNITS ity of NPH U-100 00:00: [place] INSULIN) 00 USLY ONCE Medica l 100 unit/mL DAILY WITH Br anch injection BREAKFAST insulin Yes [id number] INJECT 15 [facility] regular 9-06 UNITS ity of human 00:00: SUBCUTANEO [place] (NOVOLIN R 00 USLY THREE Med ical REGULAR TIMES Branch U-100 DAILY INSULN) 100 BEFORE unit/mL MEAL(S) injection ondansetron Yes [id number] DISSOLVE 1 [facility] 4 mg 9-06 TABLET IN ity of disintegrat 00:00: MOUTH [place] ing tablet 00 EVERY 8 Medica l HOURS Branch NEEDED FOR NAUSEA AND VOMITING FOR UP TO 4 DAYS insulin NPH Yes [id number] INJECT 20 [facility] (NOVOLIN N 9-06 UNITS ity of NPH U-100 00:00: [place] INSULIN) 00 USLY ONCE Medica l 100 unit/mL DAILY WITH Br anch injection BREAKFAST insulin Yes [id number] INJECT 15 [facility] regular 9-06 UNITS ity of human 00:00: SUBCUTANEO [place] (NOVOLIN R 00 USLY THREE Med ical REGULAR TIMES Branch U-100 DAILY INSULN) 100 BEFORE unit/mL MEAL(S) injection ondansetron Yes [id number] DISSOLVE 1 [facility] 4 mg 9-06 TABLET IN ity of disintegrat 00:00: MOUTH [place] ing tablet 00 EVERY 8 Medica l HOURS Branch NEEDED FOR NAUSEA AND VOMITING FOR UP TO 4 DAYS insulin NPH Yes [id number] INJECT 20 [facility] (NOVOLIN N 9-06 UNITS ity of NPH U-100 00:00: [place] INSULIN) 00 USLY ONCE Medica l 100 unit/mL DAILY WITH Br anch injection BREAKFAST insulin Yes [id number] INJECT 15 [facility] regular 9-06 UNITS ity of human 00:00: SUBCUTANEO [place] (NOVOLIN R 00 USLY THREE Med ical REGULAR TIMES Branch U-100 DAILY INSULN) 100 BEFORE unit/mL MEAL(S) injection ondansetron Yes [id number] DISSOLVE 1 [facility] 4 mg 9-06 TABLET IN ity of disintegrat 00:00: MOUTH [place] ing tablet 00 EVERY 8 Medica l HOURS Branch NEEDED FOR NAUSEA AND VOMITING FOR UP TO 4 DAYS insulin NPH Yes [id number] INJECT 20 [facility] (NOVOLIN N 9-06 UNITS ity of NPH U-100 00:00: [place] INSULIN) 00 USLY ONCE Medica l 100 unit/mL DAILY WITH Br anch injection BREAKFAST insulin Yes [id number] INJECT 15 [facility] regular 9-06 UNITS ity of human 00:00: SUBCUTANEO [place] (NOVOLIN R 00 USLY THREE Med ical REGULAR TIMES Branch U-100 DAILY INSULN) 100 BEFORE unit/mL MEAL(S) injection ondansetron Yes [id number] DISSOLVE 1 [facility] 4 mg 9-06 TABLET IN ity of disintegrat 00:00: MOUTH [place] ing tablet 00 EVERY 8 Medica l HOURS Branch NEEDED FOR NAUSEA AND VOMITING FOR UP TO 4 DAYS insulin NPH Yes [id number] INJECT 20 [facility] (NOVOLIN N 9-06 UNITS ity of NPH U-100 00:00: [place] INSULIN) 00 USLY ONCE Medica l 100 unit/mL DAILY WITH Br anch injection BREAKFAST insulin Yes [id number] INJECT 15 [facility] regular 9-06 UNITS ity of human 00:00: SUBCUTANEO [place] (NOVOLIN R 00 USLY THREE Med ical REGULAR TIMES Branch U-100 DAILY INSULN) 100 BEFORE unit/mL MEAL(S) injection ondansetron Yes [id number] DISSOLVE 1 [facility] 4 mg 9-06 TABLET IN ity of disintegrat 00:00: MOUTH [place] ing tablet 00 EVERY 8 Medica l HOURS Branch NEEDED FOR NAUSEA AND VOMITING FOR UP TO 4 DAYS insulin NPH Yes [id number] INJECT 20 [facility] (NOVOLIN N 9-06 UNITS ity of NPH U-100 00:00: [place] INSULIN) 00 USLY ONCE Medica l 100 unit/mL DAILY WITH Br anch injection BREAKFAST insulin Yes [id number] INJECT 15 [facility] regular 9-06 UNITS ity of human 00:00: SUBCUTANEO [place] (NOVOLIN R 00 USLY THREE Med ical REGULAR TIMES Branch U-100 DAILY INSULN) 100 BEFORE unit/mL MEAL(S) injection ondansetron Yes [id number] DISSOLVE 1 [facility] 4 mg 9-06 TABLET IN ity of disintegrat 00:00: MOUTH [place] ing tablet 00 EVERY 8 Medica l HOURS Branch NEEDED FOR NAUSEA AND VOMITING FOR UP TO 4 DAYS insulin NPH Yes [id number] INJECT 20 [facility] (NOVOLIN N 9-06 UNITS ity of NPH U-100 00:00: [place] INSULIN) 00 USLY ONCE Medica l 100 unit/mL DAILY WITH Br anch injection BREAKFAST insulin Yes [id number] INJECT 15 [facility] regular 9-06 UNITS ity of human 00:00: SUBCUTANEO [place] (NOVOLIN R 00 USLY THREE Med ical REGULAR TIMES Branch U-100 DAILY INSULN) 100 BEFORE unit/mL MEAL(S) injection ondansetron Yes [id number] DISSOLVE 1 [facility] 4 mg 9-06 TABLET IN ity of disintegrat 00:00: MOUTH [place] ing tablet 00 EVERY 8 Medica l HOURS Branch NEEDED FOR NAUSEA AND VOMITING FOR UP TO 4 DAYS insulin NPH Yes [id number] INJECT 20 [facility] (NOVOLIN N 9-06 UNITS ity of NPH U-100 00:00: [place] INSULIN) 00 USLY ONCE Medica l 100 unit/mL DAILY WITH Br anch injection BREAKFAST insulin Yes [id number] INJECT 15 [facility] regular 9-06 UNITS ity of human 00:00: SUBCUTANEO [place] (NOVOLIN R 00 USLY THREE Med ical REGULAR TIMES Branch U-100 DAILY INSULN) 100 BEFORE unit/mL MEAL(S) injection ondansetron Yes [id number] DISSOLVE 1 [facility] 4 mg 9-06 TABLET IN ity of disintegrat 00:00: MOUTH [place] ing tablet 00 EVERY 8 Medica l HOURS Branch NEEDED FOR NAUSEA AND VOMITING FOR UP TO 4 DAYS insulin NPH Yes [id number] INJECT 20 [facility] (NOVOLIN N 9-06 UNITS ity of NPH U-100 00:00: [place] INSULIN) 00 USLY ONCE Medica l 100 unit/mL DAILY WITH Br anch injection BREAKFAST insulin Yes [id number] INJECT 15 [facility] regular 9-06 UNITS ity of human 00:00: SUBCUTANEO [place] (NOVOLIN R 00 USLY THREE Med ical REGULAR TIMES Branch U-100 DAILY INSULN) 100 BEFORE unit/mL MEAL(S) injection ondansetron Yes [id number] DISSOLVE 1 [facility] 4 mg 9-06 TABLET IN ity of disintegrat 00:00: MOUTH [place] ing tablet 00 EVERY 8 Medica l HOURS Branch NEEDED FOR NAUSEA AND VOMITING FOR UP TO 4 DAYS insulin NPH Yes [id number] INJECT 20 [facility] (NOVOLIN N 9-06 UNITS ity of NPH U-100 00:00: [place] INSULIN) 00 USLY ONCE Medica l 100 unit/mL DAILY WITH Br anch injection BREAKFAST insulin Yes [id number] INJECT 15 [facility] regular 9-06 UNITS ity of human 00:00: SUBCUTANEO [place] (NOVOLIN R 00 USLY THREE Med ical REGULAR TIMES Branch U-100 DAILY INSULN) 100 BEFORE unit/mL MEAL(S) injection ondansetron Yes [id number] DISSOLVE 1 [facility] 4 mg 9-06 TABLET IN ity of disintegrat 00:00: MOUTH [place] ing tablet 00 EVERY 8 Medica l HOURS Branch NEEDED FOR NAUSEA AND VOMITING FOR UP TO 4 DAYS insulin NPH Yes [id number] INJECT 20 [facility] (NOVOLIN N 9-06 UNITS ity of NPH U-100 00:00: [place] INSULIN) 00 USLY ONCE Medica l 100 unit/mL DAILY WITH Br anch injection BREAKFAST insulin Yes [id number] INJECT 15 [facility] regular 9-06 UNITS ity of human 00:00: SUBCUTANEO [place] (NOVOLIN R 00 USLY THREE Med ical REGULAR TIMES Branch U-100 DAILY INSULN) 100 BEFORE unit/mL MEAL(S) injection ondansetron Yes [id number] DISSOLVE 1 [facility] 4 mg 9-06 TABLET IN ity of disintegrat 00:00: MOUTH [place] ing tablet 00 EVERY 8 Medica l HOURS Branch NEEDED FOR NAUSEA AND VOMITING FOR UP TO 4 DAYS insulin NPH Yes [id number] INJECT 20 [facility] (NOVOLIN N 9-06 UNITS ity of NPH U-100 00:00: [place] INSULIN) 00 USLY ONCE Medica l 100 unit/mL DAILY WITH Br anch injection BREAKFAST insulin Yes [id number] INJECT 15 [facility] regular 9-06 UNITS ity of human 00:00: SUBCUTANEO [place] (NOVOLIN R 00 USLY THREE Med ical REGULAR TIMES Branch U-100 DAILY INSULN) 100 BEFORE unit/mL MEAL(S) injection ondansetron Yes [id number] DISSOLVE 1 [facility] 4 mg 9-06 TABLET IN ity of disintegrat 00:00: MOUTH [place] ing tablet 00 EVERY 8 Medica l HOURS Branch NEEDED FOR NAUSEA AND VOMITING FOR UP TO 4 DAYS insulin NPH Yes [id number] INJECT 20 [facility] (NOVOLIN N 9-06 UNITS ity of NPH U-100 00:00: [place] INSULIN) 00 USLY ONCE Medica l 100 unit/mL DAILY WITH Br anch injection BREAKFAST insulin Yes [id number] INJECT 15 [facility] regular 9-06 UNITS ity of human 00:00: SUBCUTANEO [place] (NOVOLIN R 00 USLY THREE Med ical REGULAR TIMES Branch U-100 DAILY INSULN) 100 BEFORE unit/mL MEAL(S) injection ondansetron Yes [id number] DISSOLVE 1 [facility] 4 mg 9-06 TABLET IN ity of disintegrat 00:00: MOUTH [place] ing tablet 00 EVERY 8 Medica l HOURS Branch NEEDED FOR NAUSEA AND VOMITING FOR UP TO 4 DAYS insulin NPH Yes [id number] INJECT 20 [facility] (NOVOLIN N 9-06 UNITS ity of NPH U-100 00:00: [place] INSULIN) 00 USLY ONCE Medica l 100 unit/mL DAILY WITH Br anch injection BREAKFAST insulin Yes [id number] INJECT 15 [facility] regular 9-06 UNITS ity of human 00:00: SUBCUTANEO [place] (NOVOLIN R 00 USLY THREE Med ical REGULAR TIMES Branch U-100 DAILY INSULN) 100 BEFORE unit/mL MEAL(S) injection ondansetron Yes [id number] DISSOLVE 1 [facility] 4 mg 9-06 TABLET IN ity of disintegrat 00:00: MOUTH [place] ing tablet 00 EVERY 8 Medica l HOURS Branch NEEDED FOR NAUSEA AND VOMITING FOR UP TO 4 DAYS insulin NPH Yes [id number] INJECT 20 [facility] (NOVOLIN N 9-06 UNITS ity of NPH U-100 00:00: [place] INSULIN) 00 USLY ONCE Medica l 100 unit/mL DAILY WITH Br anch injection BREAKFAST insulin Yes [id number] INJECT 15 [facility] regular 9-06 UNITS ity of human 00:00: SUBCUTANEO [place] (NOVOLIN R 00 USLY THREE Med ical REGULAR TIMES Branch U-100 DAILY INSULN) 100 BEFORE unit/mL MEAL(S) injection ondansetron Yes [id number] DISSOLVE 1 [facility] 4 mg 9-06 TABLET IN ity of disintegrat 00:00: MOUTH [place] ing tablet 00 EVERY 8 Medica l HOURS Branch NEEDED FOR NAUSEA AND VOMITING FOR UP TO 4 DAYS insulin NPH Yes [id number] INJECT 20 [facility] (NOVOLIN N 9-06 UNITS ity of NPH U-100 00:00: [place] INSULIN) 00 USLY ONCE Medica l 100 unit/mL DAILY WITH Br anch injection BREAKFAST insulin Yes [id number] INJECT 15 [facility] regular 9-06 UNITS ity of human 00:00: SUBCUTANEO [place] (NOVOLIN R 00 USLY THREE Med ical REGULAR TIMES Branch U-100 DAILY INSULN) 100 BEFORE unit/mL MEAL(S) injection insulin NPH Yes [id number] INJECT 20 [facility] (NOVOLIN N 9-06 UNITS ity of NPH U-100 00:00: [place] INSULIN) 00 USLY ONCE Medica l 100 unit/mL DAILY WITH Br anch injection BREAKFAST insulin Yes [id number] INJECT 15 [facility] regular 9-06 UNITS ity of human 00:00: SUBCUTANEO [place] (NOVOLIN R 00 USLY THREE Med ical REGULAR TIMES Branch U-100 DAILY INSULN) 100 BEFORE unit/mL MEAL(S) injection insulin NPH Yes [id number] INJECT 20 [facility] (NOVOLIN N 9-06 UNITS ity of NPH U-100 00:00: [place] INSULIN) 00 USLY ONCE Medica l 100 unit/mL DAILY WITH Br anch injection BREAKFAST insulin Yes [id number] INJECT 15 [facility] regular 9-06 UNITS ity of human 00:00: SUBCUTANEO [place] (NOVOLIN R 00 USLY THREE Med ical REGULAR TIMES Branch U-100 DAILY INSULN) 100 BEFORE unit/mL MEAL(S) injection insulin NPH Yes [id number] INJECT 20 [facility] (NOVOLIN N 9-06 UNITS ity of NPH U-100 00:00: [place] INSULIN) 00 USLY ONCE Medica l 100 unit/mL DAILY WITH Br anch injection BREAKFAST insulin Yes [id number] INJECT 15 [facility] regular 9-06 UNITS ity of human 00:00: SUBCUTANEO [place] (NOVOLIN R 00 USLY THREE Med ical REGULAR TIMES Branch U-100 DAILY INSULN) 100 BEFORE unit/mL MEAL(S) injection insulin NPH Yes [id number] INJECT 20 [facility] (NOVOLIN N 9-06 UNITS ity of NPH U-100 00:00: [place] INSULIN) 00 USLY ONCE Medica l 100 unit/mL DAILY WITH Br anch injection BREAKFAST insulin Yes [id number] INJECT 15 [facility] regular 9-06 UNITS ity of human 00:00: SUBCUTANEO [place] (NOVOLIN R 00 USLY THREE Med ical REGULAR TIMES Branch U-100 DAILY INSULN) 100 BEFORE unit/mL MEAL(S) injection insulin NPH Yes [id number] INJECT 20 [facility] (NOVOLIN N 9-06 UNITS ity of NPH U-100 00:00: [place] INSULIN) 00 USLY ONCE Medica l 100 unit/mL DAILY WITH Br anch injection BREAKFAST insulin Yes [id number] INJECT 15 [facility] regular 9-06 UNITS ity of human 00:00: SUBCUTANEO [place] (NOVOLIN R 00 USLY THREE Med ical REGULAR TIMES Branch U-100 DAILY INSULN) 100 BEFORE unit/mL MEAL(S) injection insulin NPH Yes [id number] INJECT 20 [facility] (NOVOLIN N 9-06 UNITS ity of NPH U-100 00:00: [place] INSULIN) 00 USLY ONCE Medica l 100 unit/mL DAILY WITH Br anch injection BREAKFAST insulin Yes [id number] INJECT 15 [facility] regular 9-06 UNITS ity of human 00:00: SUBCUTANEO [place] (NOVOLIN R 00 USLY THREE Med ical REGULAR TIMES Branch U-100 DAILY INSULN) 100 BEFORE unit/mL MEAL(S) injection insulin NPH Yes [id number] INJECT 20 [facility] (NOVOLIN N 9-06 UNITS ity of NPH U-100 00:00: [place] INSULIN) 00 USLY ONCE Medica l 100 unit/mL DAILY WITH Br anch injection BREAKFAST insulin Yes [id number] INJECT 15 [facility] regular 9-06 UNITS ity of human 00:00: SUBCUTANEO [place] (NOVOLIN R 00 USLY THREE Med ical REGULAR TIMES Branch U-100 DAILY INSULN) 100 BEFORE unit/mL MEAL(S) injection insulin NPH Yes [id number] INJECT 20 [facility] (NOVOLIN N 9-06 UNITS ity of NPH U-100 00:00: [place] INSULIN) 00 USLY ONCE Medica l 100 unit/mL DAILY WITH Br anch injection BREAKFAST insulin Yes [id number] INJECT 15 [facility] regular 9-06 UNITS ity of human 00:00: SUBCUTANEO [place] (NOVOLIN R 00 USLY THREE Med ical REGULAR TIMES Branch U-100 DAILY INSULN) 100 BEFORE unit/mL MEAL(S) injection insulin NPH Yes [id number] INJECT 20 [facility] (NOVOLIN N 9-06 UNITS ity of NPH U-100 00:00: [place] INSULIN) 00 USLY ONCE Medica l 100 unit/mL DAILY WITH Br anch injection BREAKFAST insulin Yes [id number] INJECT 15 [facility] regular 9-06 UNITS ity of human 00:00: SUBCUTANEO [place] (NOVOLIN R 00 USLY THREE Med ical REGULAR TIMES Branch U-100 DAILY INSULN) 100 BEFORE unit/mL MEAL(S) injection insulin NPH Yes [id number] INJECT 20 [facility] (NOVOLIN N 9-06 UNITS ity of NPH U-100 00:00: [place] INSULIN) 00 USLY ONCE Medica l 100 unit/mL DAILY WITH Br anch injection BREAKFAST insulin Yes [id number] INJECT 15 [facility] regular 9-06 UNITS ity of human 00:00: SUBCUTANEO [place] (NOVOLIN R 00 USLY THREE Med ical REGULAR TIMES Branch U-100 DAILY INSULN) 100 BEFORE unit/mL MEAL(S) injection insulin NPH Yes [id number] INJECT 20 [facility] (NOVOLIN N 9-06 UNITS ity of NPH U-100 00:00: [place] INSULIN[place] 00 USLY ONCE Medica l 100 unit/mL DAILY WITH Br anch injection BREAKFAST insulin Yes [id number] INJECT 15 [facility] regular 9-06 UNITS ity of human 00:00: SUBCUTANEO [place] (NOVOLIN R 00 USLY THREE Med ical REGULAR TIMES Branch U-100 DAILY INSULN) 100 BEFORE unit/mL MEAL(S) injection insulin NPH Yes [id number] INJECT 20 [facility] (NOVOLIN N 9-06 UNITS ity of NPH U-100 00:00: [place] INSULIN) 00 USLY ONCE Medica l 100 unit/mL DAILY WITH Br anch injection BREAKFAST insulin Yes [id number] INJECT 15 [facility] regular 9-06 UNITS ity of human 00:00: SUBCUTANEO [place] (NOVOLIN R 00 USLY THREE Med ical REGULAR TIMES Branch U-100 DAILY INSULN) 100 BEFORE unit/mL MEAL(S) injection insulin NPH Yes [id number] INJECT 20 [facility] (NOVOLIN N 9-06 UNITS ity of NPH U-100 00:00: [place] INSULIN[place] 00 USLY ONCE Medica l 100 unit/mL DAILY WITH Br anch injection BREAKFAST insulin Yes [id number] INJECT 15 [facility] regular 9-06 UNITS ity of human 00:00: SUBCUTANEO [place] (NOVOLIN R 00 USLY THREE Med ical REGULAR TIMES Branch U-100 DAILY INSULN) 100 BEFORE unit/mL MEAL(S) injection insulin NPH Yes [id number] INJECT 20 [facility] (NOVOLIN N 9-06 UNITS ity of NPH U-100 00:00: [place] INSULIN[place] 00 USLY ONCE Medica l 100 unit/mL DAILY WITH Br anch injection BREAKFAST insulin Yes [id number] INJECT 15 [facility] regular 9-06 UNITS ity of human 00:00: SUBCUTANEO [place] (NOVOLIN R 00 USLY THREE Med ical REGULAR TIMES Branch U-100 DAILY INSULN) 100 BEFORE unit/mL MEAL(S) injection insulin NPH Yes [id number] INJECT 20 [facility] (NOVOLIN N 9-06 UNITS ity of NPH U-100 00:00: [place] INSULIN[place] 00 USLY ONCE Medica l 100 unit/mL DAILY WITH Br anch injection BREAKFAST insulin Yes [id number] INJECT 15 [facility] regular 9-06 UNITS ity of human 00:00: SUBCUTANEO [place] (NOVOLIN R 00 USLY THREE Med ical REGULAR TIMES Branch U-100 DAILY INSULN) 100 BEFORE unit/mL MEAL(S) injection insulin NPH Yes [id number] INJECT 20 [facility] (NOVOLIN N 9-06 UNITS ity of NPH U-100 00:00: [place] [facility]ULIN[place] 00 USLY ONCE Medica l 100 unit/mL DAILY WITH Br anch injection BREAKFAST insulin Yes [id number] INJECT 15 [facility] regular 9-06 UNITS ity of human 00:00: SUBCUTANEO [place] (NOVOLIN R 00 USLY THREE Med ical REGULAR TIMES Branch U-100 DAILY INSULN) 100 BEFORE unit/mL MEAL(S) injection insulin NPH Yes [id number] INJECT 20 [facility] (NOVOLIN N 9-06 UNITS ity of NPH U-100 00:00: [place] [facility]ULIN[place] 00 USLY ONCE Medica l 100 unit/mL DAILY WITH Br anch injection BREAKFAST insulin Yes [id number] INJECT 15 [facility] regular 9-06 UNITS ity of human 00:00: SUBCUTANEO [place] (NOVOLIN R 00 USLY THREE Med ical REGULAR TIMES Branch U-100 DAILY INSULN) 100 BEFORE unit/mL MEAL(S) injection insulin NPH Yes [id number] INJECT 20 [facility] (NOVOLIN N 9-06 UNITS ity of NPH U-100 00:00: [place] [facility]ULIN[place] 00 USLY ONCE Medica l 100 unit/mL DAILY WITH Br anch injection BREAKFAST insulin Yes [id number] INJECT 15 [facility] regular 9-06 UNITS ity of human 00:00: SUBCUTANEO [place] (NOVOLIN R 00 USLY THREE Med ical REGULAR TIMES Branch U-100 DAILY INSULN) 100 BEFORE unit/mL MEAL(S) injection insulin NPH Yes [id number] INJECT 20 [facility] (NOVOLIN N 9-06 UNITS ity of NPH U-100 00:00: [place] [facility]ULIN[place] 00 USLY ONCE Medica l 100 unit/mL DAILY WITH Br anch injection BREAKFAST insulin Yes [id number] INJECT 15 [facility] regular 9-06 UNITS ity of human 00:00: SUBCUTANEO [place] (NOVOLIN R 00 USLY THREE Med ical REGULAR TIMES Branch U-100 DAILY INSULN) 100 BEFORE unit/mL MEAL(S) injection insulin NPH Yes [id number] INJECT 20 [facility] (NOVOLIN N 9-06 UNITS ity of NPH U-100 00:00: [place] INSULIN[place] 00 USLY ONCE Medica l 100 unit/mL DAILY WITH Br anch injection BREAKFAST insulin Yes [id number] INJECT 15 [facility] regular 9-06 UNITS ity of human 00:00: SUBCUTANEO [place] (NOVOLIN R 00 USLY THREE Med ical REGULAR TIMES Branch U-100 DAILY INSULN) 100 BEFORE unit/mL MEAL(S) injection insulin NPH Yes [id number] INJECT 20 [facility] (NOVOLIN N 9-06 UNITS ity of NPH U-100 00:00: [place] INSULIN) 00 USLY ONCE Medica l 100 unit/mL DAILY WITH Br anch injection BREAKFAST insulin Yes [id number] INJECT 15 [facility] regular 9-06 UNITS ity of human 00:00: SUBCUTANEO [place] (NOVOLIN R 00 USLY THREE Med ical REGULAR TIMES Branch U-100 DAILY INSULN) 100 BEFORE unit/mL MEAL(S) injection insulin NPH Yes [id number] INJECT 20 [facility] (NOVOLIN N 9-06 UNITS ity of NPH U-100 00:00: [place] INSULIN) 00 USLY ONCE Medica l 100 unit/mL DAILY WITH Br anch injection BREAKFAST insulin Yes [id number] INJECT 15 [facility] regular 9-06 UNITS ity of human 00:00: SUBCUTANEO [place] (NOVOLIN R 00 USLY THREE Med ical REGULAR TIMES Branch U-100 DAILY INSULN) 100 BEFORE unit/mL MEAL(S) injection insulin NPH Yes [id number] INJECT 20 [facility] (NOVOLIN N 9-06 UNITS ity of NPH U-100 00:00: [place] INSULIN) 00 USLY ONCE Medica l 100 unit/mL DAILY WITH Br anch injection BREAKFAST insulin Yes [id number] INJECT 15 [facility] regular 9-06 UNITS ity of human 00:00: SUBCUTANEO [place] (NOVOLIN R 00 USLY THREE Med ical REGULAR TIMES Branch U-100 DAILY INSULN) 100 BEFORE unit/mL MEAL(S) injection insulin NPH Yes [id number] INJECT 20 [facility] (NOVOLIN N 9-06 UNITS ity of NPH U-100 00:00: [place] INSULIN) 00 USLY ONCE Medica l 100 unit/mL DAILY WITH Br anch injection BREAKFAST insulin Yes [id number] INJECT 15 [facility] regular 9-06 UNITS ity of human 00:00: SUBCUTANEO [place] (NOVOLIN R 00 USLY THREE Med ical REGULAR TIMES Branch U-100 DAILY INSULN) 100 BEFORE unit/mL MEAL(S) injection insulin NPH Yes [id number] INJECT 20 [facility] (NOVOLIN N 9-06 UNITS ity of NPH U-100 00:00: [place] INSULIN) 00 USLY ONCE Medica l 100 unit/mL DAILY WITH Br anch injection BREAKFAST insulin Yes [id number] INJECT 15 [facility] regular 9-06 UNITS ity of human 00:00: SUBCUTANEO [place] (NOVOLIN R 00 USLY THREE Med ical REGULAR TIMES Branch U-100 DAILY INSULN) 100 BEFORE unit/mL MEAL(S) injection insulin NPH Yes [id number] INJECT 20 [facility] (NOVOLIN N 9-06 UNITS ity of NPH U-100 00:00: [place] INSULIN) 00 USLY ONCE Medica l 100 unit/mL DAILY WITH Br anch injection BREAKFAST insulin Yes [id number] INJECT 15 [facility] regular 9-06 UNITS ity of human 00:00: SUBCUTANEO [place] (NOVOLIN R 00 USLY THREE Med ical REGULAR TIMES Branch U-100 DAILY INSULN) 100 BEFORE unit/mL MEAL(S) injection insulin NPH Yes [id number] INJECT 20 [facility] (NOVOLIN N 9-06 UNITS ity of NPH U-100 00:00: [place] INSULIN) 00 USLY ONCE Medica l 100 unit/mL DAILY WITH Br anch injection BREAKFAST insulin Yes [id number] INJECT 15 [facility] regular 9-06 UNITS ity of human 00:00: SUBCUTANEO [place] (NOVOLIN R 00 USLY THREE Med ical REGULAR TIMES Branch U-100 DAILY INSULN) 100 BEFORE unit/mL MEAL(S) injection insulin NPH 2022- No [id number] INJECT 20 [facility] (NOVOLIN N 9-06 02-01 UNITS ity of NPH U-100 00:00: 00:00 [place] INSULIN) 00 :00 USLY ONCE Medica l 100 unit/mL DAILY WITH Br anch injection BREAKFAST insulin 2022- No [id number] INJECT 15 [facility] regular 04-18 UNITS ity of human 00:00: 00:00 SUBCUTANEO [place] (NOVOLIN R 00 :00 USLY THREE Med ical REGULAR TIMES Branch U-100 DAILY INSULN) 100 BEFORE unit/mL MEAL(S) injection insulin NPH 2022- No [id number] INJECT 20 [facility] (NOVOLIN N 04-18 UNITS ity of NPH U-100 00:00: 00:00 [place] INSULIN) 00 :00 USLY ONCE Medica l 100 unit/mL DAILY WITH Br anch injection BREAKFAST insulin 2022- No [id number] INJECT 15 [facility] regular 04-18 UNITS ity of human 00:00: 00:00 SUBCUTANEO [place] (NOVOLIN R 00 :00 USLY THREE Med ical REGULAR TIMES Branch U-100 DAILY INSULN) 100 BEFORE unit/mL MEAL(S) injection insulin NPH 2022- No [id number] INJECT 20 [facility] (NOVOLIN N 04-18 UNITS ity of NPH U-100 00:00: 00:00 [place] INSULIN) 00 :00 USLY ONCE Medica l 100 unit/mL DAILY WITH Br anch injection BREAKFAST insulin 2022- No [id number] INJECT 15 [facility] regular 04-18 UNITS ity of human 00:00: 00:00 [facility] (NOVOLIN R 00 :00 USLY THREE Med ical REGULAR TIMES Branch U-100 DAILY INSULN) 100 BEFORE unit/mL MEAL(S) injection ondansetron 2021- No [id number] DISSOLVE 1 [facility] 4 mg 04-18 TABLET IN ity of disintegrat 00:00: 00:[place] 00 :00 EVERY 8 Medica l HOURS Branch NEEDED FOR NAUSEA AND VOMITING FOR UP TO 4 DAYS ondansetron 2021- No [id number] DISSOLVE 1 [facility] 4 mg 04-18 TABLET IN ity of disintegrat 00:00: 00:[place] 00 :00 EVERY 8 Medica l HOURS Branch NEEDED FOR NAUSEA AND VOMITING FOR UP TO 4 DAYS ondansetron 2021- No [id number] DISSOLVE 1 [facility] 4 mg 04-1805 TABLET IN ity of disintegrat 00:00: 00:[place] 00 :00 EVERY 8 Medica l HOURS Branch NEEDED FOR NAUSEA AND VOMITING FOR UP TO 4 DAYS ondansetron 2021- No [id number] DISSOLVE 1 [facility] 4 mg 04-1805 TABLET IN ity of disintegrat 00:00: 00:[place] 00 :00 EVERY 8 Medica l HOURS Branch NEEDED FOR NAUSEA AND VOMITING FOR UP TO 4 DAYS gabapentin 2021- No [id number] 400mg Take 1 [facility] 400 mg 04-18 9100 capsule by ity of capsule 00:00: 00:00 mouth in [place] 00 :00 the Medical morning Branch and 1 capsule at noon and 1 capsule in the evening. gabapentin 2021- No [id number] 400mg Take 1 [facility] 400 mg 04-18 9100 capsule by ity of capsule 00:00: 00:00 mouth in [place] 00 :00 the Medical morning Branch and 1 capsule at noon and 1 capsule in the evening. PROMETHAZIN Yes [id number] TAKE 2 [facility] E 12.5 mg 8-15 TABLETS BY ity of tablet 00:00: MOUTH [place] 00 EVERY 6 Medical HOURS Branch NEEDED FOR VERTIGO PROMETHAZIN 0 Yes [id number] TAKE 2 [facility] E 12.5 mg 8-15 TABLETS BY ity of tablet 00:00: [facility] 00 EVERY 6 Medical HOURS Branch NEEDED FOR VERTIGO PROMETHAZIN 2021-0 Yes [id number] TAKE 2 [facility] E 12.5 mg 8-15 TABLETS BY ity of tablet 00:00: MOUTH [place] 00 EVERY 6 Medical HOURS Branch NEEDED FOR VERTIGO PROMETHAZIN 2021-0 Yes [id number] TAKE 2 [facility] E 12.5 mg 8-15 TABLETS BY ity of tablet 00:00: MOUTH [place] 00 EVERY 6 Medical HOURS Branch NEEDED FOR VERTIGO PROMETHAZIN 2021-0 Yes [id number] TAKE 2 [facility] E 12.5 mg 8-15 TABLETS BY ity of tablet 00:00: MOUTH [place] 00 EVERY 6 Medical HOURS Branch NEEDED FOR VERTIGO PROMETHAZIN 2021-0 Yes [id number] TAKE 2 [facility] E 12.5 mg 8-15 TABLETS BY ity of tablet 00:00: MOUTH [place] 00 EVERY 6 Medical HOURS Branch NEEDED FOR VERTIGO PROMETHAZIN 2021-0 Yes [id number] TAKE 2 [facility] E 12.5 mg 8-15 TABLETS BY ity of tablet 00:00: MOUTH [place] 00 EVERY 6 Medical HOURS Branch NEEDED FOR VERTIGO PROMETHAZIN 2021-0 Yes [id number] TAKE 2 [facility] E 12.5 mg 8-15 TABLETS BY ity of tablet 00:00: MOUTH [place] 00 EVERY 6 Medical HOURS Branch NEEDED FOR VERTIGO PROMETHAZIN 0 Yes [id number] TAKE 2 [facility] E 12.5 mg 8-15 TABLETS BY ity of tablet 00:00: MOUTH [place] 00 EVERY 6 Medical HOURS Branch NEEDED FOR VERTIGO PROMETHAZIN 2021-0 2- No [id number] TAKE 2 [facility] E 12.5 mg 8-15 10-10 TABLETS BY ity of tablet 00:00: 00:00 MOUTH [place] 00 :00 EVERY 6 Medical HOURS Branch NEEDED FOR VERTIGO PROMETHAZIN 2021-0 2021- No [id number] TAKE 2 [facility] E 12.5 mg 8-15 10-10 TABLETS BY ity of tablet 00:00: 00:00 MOUTH [place] 00 :00 EVERY 6 Medical HOURS Branch NEEDED FOR VERTIGO PROMETHAZIN 2021-0 2- No [id number] TAKE 2 [facility] E 12.5 mg 8-15 10-10 TABLETS BY ity of tablet 00:00: 00:00 MOUTH [place] 00 :00 EVERY 6 Medical HOURS Branch NEEDED FOR VERTIGO atorvastati 2021-0 Yes [id number] 20mg Take 1 [facility] n 20 mg 6-06 tablet by ity of tablet 00:00: mouth at [place] 00 bedtime. Medical Branch escitalopra 2021-0 Yes [id number] 20mg Take 1 [facility] m oxalate 6-06 tablet by ity o f (LEXAPRO) 00:00: mouth [place] 20 mg 00 daily. Medical tablet Branch glyBURIDE 5 2021-0 Yes [id number] TAKE 1 [facility] mg tablet 6-06 TABLET BY ity o f 00:00: MOUTH [place] 00 TWICE Medical DAILY WITH Branch MEALS (NEEDS FOLLOW UP VISIT FOR FURTHER REFILLS) atorvastati Yes [id number] 20mg Take 1 [facility] n 20 mg 6-06 tablet by ity of tablet 00:00: mouth at [place] 00 bedtime. Medical Branch escitalopra Yes [id number] 20mg Take 1 [facility] m oxalate 6-06 tablet by ity o f (LEXAPRO) 00:00: mouth [place] 20 mg 00 daily. Medical tablet Branch glyBURIDE 5 Yes [id number] TAKE 1 [facility] mg tablet 6-06 TABLET BY ity o f 00:00: MOUTH [place] 00 TWICE Medical DAILY WITH Branch MEALS (NEEDS FOLLOW UP VISIT FOR FURTHER REFILLS) atorvastati Yes [id number] 20mg Take 1 [facility] n 20 mg 6-06 tablet by ity of tablet 00:00: mouth at [place] 00 bedtime. Medical Branch escitalopra Yes [id number] 20mg Take 1 [facility] m oxalate 6-06 tablet by ity o f (LEXAPRO) 00:00: mouth [place] 20 mg 00 daily. Medical tablet Branch glyBURIDE 5 Yes [id number] TAKE 1 [facility] mg tablet 6-06 TABLET BY ity o f 00:00: MOUTH [place] 00 TWICE Medical DAILY WITH Branch MEALS (NEEDS FOLLOW UP VISIT FOR FURTHER REFILLS) atorvastati Yes [id number] 20mg Take 1 [facility] n 20 mg 6-06 tablet by ity of tablet 00:00: mouth at [place] 00 bedtime. Medical Branch escitalopra Yes [id number] 20mg Take 1 [facility] m oxalate 6-06 tablet by ity o f (LEXAPRO) 00:00: mouth [place] 20 mg 00 daily. Medical tablet Branch glyBURIDE 5 Yes [id number] TAKE 1 [facility] mg tablet 6-06 TABLET BY ity o f 00:00: MOUTH [place] 00 TWICE Medical DAILY WITH Branch MEALS (NEEDS FOLLOW UP VISIT FOR FURTHER REFILLS) atorvastati Yes [id number] 20mg Take 1 [facility] n 20 mg 6-06 tablet by ity of tablet 00:00: mouth at [place] 00 bedtime. Medical Branch escitalopra Yes [id number] 20mg Take 1 [facility] m oxalate 6-06 tablet by ity o f (LEXAPRO) 00:00: mouth [place] 20 mg 00 daily. Medical tablet Branch glyBURIDE 5 Yes [id number] TAKE 1 [facility] mg tablet 6-06 TABLET BY ity o f 00:00: MOUTH [place] 00 TWICE Medical DAILY WITH Branch MEALS (NEEDS FOLLOW UP VISIT FOR FURTHER REFILLS) atorvastati Yes [id number] 20mg Take 1 [facility] n 20 mg 6-06 tablet by ity of tablet 00:00: mouth at [place] 00 bedtime. Medical Branch escitalopra Yes [id number] 20mg Take 1 [facility] m oxalate 6-06 tablet by ity o f (LEXAPRO) 00:00: mouth [place] 20 mg 00 daily. Medical tablet Branch glyBURIDE 5 Yes [id number] TAKE 1 [facility] mg tablet 6-06 TABLET BY ity o f 00:00: MOUTH [place] 00 TWICE Medical DAILY WITH Branch MEALS (NEEDS FOLLOW UP VISIT FOR FURTHER REFILLS) atorvastati Yes [id number] 20mg Take 1 [facility] n 20 mg 6-06 tablet by ity of tablet 00:00: mouth at [place] 00 bedtime. Medical Branch escitalopra Yes [id number] 20mg Take 1 [facility] m oxalate 6-06 tablet by ity o f (LEXAPRO) 00:00: mouth [place] 20 mg 00 daily. Medical tablet Branch glyBURIDE 5 Yes [id number] TAKE 1 [facility] mg tablet 6-06 TABLET BY ity o f 00:00: MOUTH [place] 00 TWICE Medical DAILY WITH Branch MEALS (NEEDS FOLLOW UP VISIT FOR FURTHER REFILLS) atorvastati Yes [id number] 20mg Take 1 [facility] n 20 mg 6-06 tablet by ity of tablet 00:00: mouth at [place] 00 bedtime. Medical Branch escitalopra Yes [id number] 20mg Take 1 [facility] m oxalate 6-06 tablet by ity o f (LEXAPRO) 00:00: mouth [place] 20 mg 00 daily. Medical tablet Branch glyBURIDE 5 Yes [id number] TAKE 1 [facility] mg tablet 6-06 TABLET BY ity o f 00:00: MOUTH [place] 00 TWICE Medical DAILY WITH Branch MEALS (NEEDS FOLLOW UP VISIT FOR FURTHER REFILLS) atorvastati Yes [id number] 20mg Take 1 [facility] n 20 mg 6-06 tablet by ity of tablet 00:00: mouth at [place] 00 bedtime. Medical Branch escitalopra Yes [id number] 20mg Take 1 [facility] m oxalate 6-06 tablet by ity o f (LEXAPRO) 00:00: mouth [place] 20 mg 00 daily. Medical tablet Branch glyBURIDE 5 Yes [id number] TAKE 1 [facility] mg tablet 6-06 TABLET BY ity o f 00:00: MOUTH [place] 00 TWICE Medical DAILY WITH Branch MEALS (NEEDS FOLLOW UP VISIT FOR FURTHER REFILLS) atorvastati Yes [id number] 20mg Take 1 [facility] n 20 mg 6-06 tablet by ity of tablet 00:00: mouth at [place] 00 bedtime. Medical Branch escitalopra Yes [id number] 20mg Take 1 [facility] m oxalate 6-06 tablet by ity o f (LEXAPRO) 00:00: mouth [place] 20 mg 00 daily. Medical tablet Branch glyBURIDE 5 Yes [id number] TAKE 1 [facility] mg tablet 6-06 TABLET BY ity o f 00:00: MOUTH [place] 00 TWICE Medical DAILY WITH Branch MEALS (NEEDS FOLLOW UP VISIT FOR FURTHER REFILLS) atorvastati Yes [id number] 20mg Take 1 [facility] n 20 mg 6-06 tablet by ity of tablet 00:00: mouth at [place] 00 bedtime. Medical Branch escitalopra Yes [id number] 20mg Take 1 [facility] m oxalate 6-06 tablet by ity o f (LEXAPRO) 00:00: mouth [place] 20 mg 00 daily. Medical tablet Branch glyBURIDE 5 Yes [id number] TAKE 1 [facility] mg tablet 6-06 TABLET BY ity o f 00:00: MOUTH [place] 00 TWICE Medical DAILY WITH Branch MEALS (NEEDS FOLLOW UP VISIT FOR FURTHER REFILLS) atorvastati Yes [id number] 20mg Take 1 [facility] n 20 mg 6-06 tablet by ity of tablet 00:00: mouth at [place] 00 bedtime. Medical Branch escitalopra Yes [id number] 20mg Take 1 [facility] m oxalate 6-06 tablet by ity o f (LEXAPRO) 00:00: mouth [place] 20 mg 00 daily. Medical tablet Branch glyBURIDE 5 Yes [id number] TAKE 1 [facility] mg tablet 6-06 TABLET BY ity o f 00:00: MOUTH [place] 00 TWICE Medical DAILY WITH Branch MEALS (NEEDS FOLLOW UP VISIT FOR FURTHER REFILLS) atorvastati Yes [id number] 20mg Take 1 [facility] n 20 mg 6-06 tablet by ity of tablet 00:00: mouth at [place] 00 bedtime. Medical Branch escitalopra Yes [id number] 20mg Take 1 [facility] m oxalate 6-06 tablet by ity o f (LEXAPRO) 00:00: mouth [place] 20 mg 00 daily. Medical tablet Branch glyBURIDE 5 Yes [id number] TAKE 1 [facility] mg tablet 6-06 TABLET BY ity o f 00:00: MOUTH [place] 00 TWICE Medical DAILY WITH Branch MEALS (NEEDS FOLLOW UP VISIT FOR FURTHER REFILLS) atorvastati Yes [id number] 20mg Take 1 [facility] n 20 mg 6-06 tablet by ity of tablet 00:00: mouth at [place] 00 bedtime. Medical Branch escitalopra Yes [id number] 20mg Take 1 [facility] m oxalate 6-06 tablet by ity o f (LEXAPRO) 00:00: mouth [place] 20 mg 00 daily. Medical tablet Branch glyBURIDE 5 Yes [id number] TAKE 1 [facility] mg tablet 6-06 TABLET BY ity o f 00:00: MOUTH [place] 00 TWICE Medical DAILY WITH Branch MEALS (NEEDS FOLLOW UP VISIT FOR FURTHER REFILLS) atorvastati Yes [id number] 20mg Take 1 [facility] n 20 mg 6-06 tablet by ity of tablet 00:00: mouth at [place] 00 bedtime. Medical Branch escitalopra Yes [id number] 20mg Take 1 [facility] m oxalate 6-06 tablet by ity o f (LEXAPRO) 00:00: mouth [place] 20 mg 00 daily. Medical tablet Branch glyBURIDE 5 Yes [id number] TAKE 1 [facility] mg tablet 6-06 TABLET BY ity o f 00:00: MOUTH [place] 00 TWICE Medical DAILY WITH Branch MEALS (NEEDS FOLLOW UP VISIT FOR FURTHER REFILLS) atorvastati 2021- Yes [id number] 20mg Take 1 [facility] n 20 mg 6-06 tablet by ity of tablet 00:00: mouth at [place] 00 bedtime. Medical Branch escitalopra Yes [id number] 20mg Take 1 [facility] m oxalate 6-06 tablet by ity o f (LEXAPRO) 00:00: mouth [place] 20 mg 00 daily. Medical tablet Branch glyBURIDE 5 Yes [id number] TAKE 1 [facility] mg tablet 6-06 TABLET BY ity o f 00:00: MOUTH [place] 00 TWICE Medical DAILY WITH Branch MEALS (NEEDS FOLLOW UP VISIT FOR FURTHER REFILLS) atorvastati Yes [id number] 20mg Take 1 [facility] n 20 mg 6-06 tablet by ity of tablet 00:00: mouth at [place] 00 bedtime. Medical Branch escitalopra Yes [id number] 20mg Take 1 [facility] m oxalate 6-06 tablet by ity o f (LEXAPRO) 00:00: mouth [place] 20 mg 00 daily. Medical tablet Branch glyBURIDE 5 Yes [id number] TAKE 1 [facility] mg tablet 6-06 TABLET BY ity o f 00:00: MOUTH [place] 00 TWICE Medical DAILY WITH Branch MEALS (NEEDS FOLLOW UP VISIT FOR FURTHER REFILLS) atorvastati Yes [id number] 20mg Take 1 [facility] n 20 mg 6-06 tablet by ity of tablet 00:00: mouth at [place] 00 bedtime. Medical Branch escitalopra Yes [id number] 20mg Take 1 [facility] m oxalate 6-06 tablet by ity o f (LEXAPRO) 00:00: mouth [place] 20 mg 00 daily. Medical tablet Branch glyBURIDE 5 Yes [id number] TAKE 1 [facility] mg tablet 6-06 TABLET BY ity o f 00:00: MOUTH [place] 00 TWICE Medical DAILY WITH Branch MEALS (NEEDS FOLLOW UP VISIT FOR FURTHER REFILLS) escitalopra Yes [id number] 20mg Take 1 [facility] m oxalate 6-06 tablet by ity o f (LEXAPRO) 00:00: mouth [place] 20 mg 00 daily. Medical tablet Branch glyBURIDE 5 Yes [id number] TAKE 1 [facility] mg tablet 6-06 TABLET BY ity o f 00:00: MOUTH [place] 00 TWICE Medical DAILY WITH Branch MEALS (NEEDS FOLLOW UP VISIT FOR FURTHER REFILLS) escitalopra Yes [id number] 20mg Take 1 [facility] m oxalate 6-06 tablet by ity o f (LEXAPRO) 00:00: mouth [place] 20 mg 00 daily. Medical tablet Branch glyBURIDE 5 Yes [id number] TAKE 1 [facility] mg tablet 6-06 TABLET BY ity o f 00:00: MOUTH [place] 00 TWICE Medical DAILY WITH Branch MEALS (NEEDS FOLLOW UP VISIT FOR FURTHER REFILLS) escitalopra Yes [id number] 20mg Take 1 [facility] m oxalate 6-06 tablet by ity o f (LEXAPRO) 00:00: mouth [place] 20 mg 00 daily. Medical tablet Branch glyBURIDE 5 Yes [id number] TAKE 1 [facility] mg tablet 6-06 TABLET BY ity o f 00:00: MOUTH [place] 00 TWICE Medical DAILY WITH Branch MEALS (NEEDS FOLLOW UP VISIT FOR FURTHER REFILLS) escitalopra 0 Yes [id number] 20mg Take 1 [facility] m oxalate 6-06 tablet by ity o f (LEXAPRO) 00:00: mouth [place] 20 mg 00 daily. Medical tablet Branch glyBURIDE 5 Yes [id number] TAKE 1 [facility] mg tablet 6-06 TABLET BY ity o f 00:00: MOUTH [place] 00 TWICE Medical DAILY WITH Branch MEALS (NEEDS FOLLOW UP VISIT FOR FURTHER REFILLS) escitalopra 0 Yes [id number] 20mg Take 1 [facility] m oxalate 6-06 tablet by ity o f (LEXAPRO) 00:00: mouth [place] 20 mg 00 daily. Medical tablet Branch glyBURIDE 5 0 Yes [id number] TAKE 1 [facility] mg tablet 6-06 TABLET BY ity o f 00:00: MOUTH [place] 00 TWICE Medical DAILY WITH Branch MEALS (NEEDS FOLLOW UP VISIT FOR FURTHER REFILLS) escitalopra 0 Yes [id number] 20mg Take 1 [facility] m oxalate 6-06 tablet by ity o f (LEXAPRO) 00:00: mouth [place] 20 mg 00 daily. Medical tablet Branch glyBURIDE 5 Yes [id number] TAKE 1 [facility] mg tablet 6-06 TABLET BY ity o f 00:00: MOUTH [place] 00 TWICE Medical DAILY WITH Branch MEALS (NEEDS FOLLOW UP VISIT FOR FURTHER REFILLS) escitalopra 2021-0 Yes [id number] 20mg Take 1 [facility] m oxalate 6-06 tablet by ity o f (LEXAPRO) 00:00: mouth [place] 20 mg 00 daily. Medical tablet Branch glyBURIDE 5 2021- Yes [id number] TAKE 1 [facility] mg tablet 6-06 TABLET BY ity o f 00:00: MOUTH [place] 00 TWICE Medical DAILY WITH Branch MEALS (NEEDS FOLLOW UP VISIT FOR FURTHER REFILLS) glyBURIDE 5 2021-0 Yes [id number] TAKE 1 [facility] mg tablet 6-06 TABLET BY ity o f 00:00: MOUTH [place] 00 TWICE Medical DAILY WITH Branch MEALS (NEEDS FOLLOW UP VISIT FOR FURTHER REFILLS) glyBURIDE 5 2021- Yes [id number] TAKE 1 [facility] mg tablet 6-06 TABLET BY ity o f 00:00: MOUTH [place] 00 TWICE Medical DAILY WITH Branch MEALS (NEEDS FOLLOW UP VISIT FOR FURTHER REFILLS) glyBURIDE 5 2021- Yes [id number] TAKE 1 [facility] mg tablet 6-06 TABLET BY ity o f 00:00: MOUTH [place] 00 TWICE Medical DAILY WITH Branch MEALS (NEEDS FOLLOW UP VISIT FOR FURTHER REFILLS) glyBURIDE 5 2021- Yes [id number] TAKE 1 [facility] mg tablet 6-06 TABLET BY ity o f 00:00: MOUTH [place] 00 TWICE Medical DAILY WITH Branch MEALS (NEEDS FOLLOW UP VISIT FOR FURTHER REFILLS) glyBURIDE 5 2021- Yes [id number] TAKE 1 [facility] mg tablet 6-06 TABLET BY ity o f 00:00: MOUTH [place] 00 TWICE Medical DAILY WITH Branch MEALS (NEEDS FOLLOW UP VISIT FOR FURTHER REFILLS) glyBURIDE 5 2021- Yes [id number] TAKE 1 [facility] mg tablet 6-06 TABLET BY ity o f 00:00: MOUTH [place] 00 TWICE Medical DAILY WITH Branch MEALS (NEEDS FOLLOW UP VISIT FOR FURTHER REFILLS) glyBURIDE 5 2021- Yes [id number] TAKE 1 [facility] mg tablet 6-06 TABLET BY ity o f 00:00: MOUTH [place] 00 TWICE Medical DAILY WITH Branch MEALS (NEEDS FOLLOW UP VISIT FOR FURTHER REFILLS) glyBURIDE 5 2021-0 Yes [id number] TAKE 1 [facility] mg tablet 6-06 TABLET BY ity o f 00:00: MOUTH [place] 00 TWICE Medical DAILY WITH Branch MEALS (NEEDS FOLLOW UP VISIT FOR FURTHER REFILLS) glyBURIDE 5 2021- Yes [id number] TAKE 1 [facility] mg tablet 6-06 TABLET BY ity o f 00:00: MOUTH [place] 00 TWICE Medical DAILY WITH Branch MEALS (NEEDS FOLLOW UP VISIT FOR FURTHER REFILLS) glyBURIDE 5 Yes [id number] TAKE 1 [facility] mg tablet 6-06 TABLET BY ity o f 00:00: MOUTH [place] 00 TWICE Medical DAILY WITH Branch MEALS (NEEDS FOLLOW UP VISIT FOR FURTHER REFILLS) glyBURIDE 5 2021-0 Yes [id number] TAKE 1 [facility] mg tablet 6-06 TABLET BY ity o f 00:00: MOUTH [place] 00 TWICE Medical DAILY WITH Branch MEALS (NEEDS FOLLOW UP VISIT FOR FURTHER REFILLS) glyBURIDE 5 Yes [id number] TAKE 1 [facility] mg tablet 6-06 TABLET BY ity o f 00:00: MOUTH [place] 00 TWICE Medical DAILY WITH Branch MEALS (NEEDS FOLLOW UP VISIT FOR FURTHER REFILLS) glyBURIDE 5 Yes [id number] TAKE 1 [facility] mg tablet 6-06 TABLET BY ity o f 00:00: MOUTH [place] 00 TWICE Medical DAILY WITH Branch MEALS (NEEDS FOLLOW UP VISIT FOR FURTHER REFILLS) atorvastati Yes [id number] 20mg Take 1 [facility] n 20 mg 6-06 tablet by ity of tablet 00:00: mouth at [place] 00 bedtime. Medical Branch empaglifloz Yes [id number] 25mg Take 1 [facility] in 6-06 tablet by ity of ([place]) 00:00: mouth [place] 25 mg Tab 00 every Medical morning. Branch escitalopra Yes [id number] 20mg Take 1 [facility] m oxalate 6-06 tablet by ity o f (LEXAPRO) 00:00: mouth [place] 20 mg 00 daily. Medical tablet Branch glyBURIDE 5 Yes [id number] TAKE 1 [facility] mg tablet 6-06 TABLET BY ity o f 00:00: MOUTH [place] 00 TWICE Medical DAILY WITH Branch MEALS (NEEDS FOLLOW UP VISIT FOR FURTHER REFILLS) NUVARING Yes [id number] 1{each} Insert 1 [facility] (NUVARING) 6-06 Each into ity of 0.12-0.015 00:00: vagina [place] mg/24 hr 00 once every Medic al vaginal month. Branch insert Insert vaginally and leave in place for 3 consecutiv e weeks, then remove for 1 week. atorvastati Yes [id number] 20mg Take 1 [facility] n 20 mg 6-06 tablet by ity of tablet 00:00: mouth at [place] 00 bedtime. Medical Branch empaglifloz Yes [id number] 25mg Take 1 [facility] in 6-06 tablet by ity of ([place]) 00:00: mouth [place] 25 mg Tab 00 every Medical morning. Branch escitalopra Yes [id number] 20mg Take 1 [facility] m oxalate 6-06 tablet by ity o f (LEXAPRO) 00:00: mouth [place] 20 mg 00 daily. Medical tablet Branch glyBURIDE 5 Yes [id number] TAKE 1 [facility] mg tablet 6-06 TABLET BY ity o f 00:00: MOUTH [place] 00 TWICE Medical DAILY WITH Branch MEALS (NEEDS FOLLOW UP VISIT FOR FURTHER REFILLS) NUVARING Yes [id number] 1{each} Insert 1 [facility] (NUVARING) 6-06 Each into ity of 0.12-0.015 00:00: vagina [place] mg/24 hr 00 once every Medic al vaginal month. Branch insert Insert vaginally and leave in place for 3 consecutiv e weeks, then remove for 1 week. atorvastati Yes [id number] 20mg Take 1 [facility] n 20 mg 6-06 tablet by ity of tablet 00:00: mouth at [place] 00 bedtime. Medical Branch empaglifloz Yes [id number] 25mg Take 1 [facility] in 6-06 tablet by ity of ([place]) 00:00: mouth [place] 25 mg Tab 00 every Medical morning. Branch escitalopra Yes [id number] 20mg Take 1 [facility] m oxalate 6-06 tablet by ity o f (LEXAPRO) 00:00: mouth [place] 20 mg 00 daily. Medical tablet Branch glyBURIDE 5 Yes [id number] TAKE 1 [facility] mg tablet 6-06 TABLET BY ity o f 00:00: MOUTH [place] 00 TWICE Medical DAILY WITH Branch MEALS (NEEDS FOLLOW UP VISIT FOR FURTHER REFILLS) NUVARING 2021-0 Yes [id number] 1{each} Insert 1 [facility] (NUVARING) 6-06 Each into ity of 0.12-0.015 00:00: vagina [place] mg/24 hr 00 once every Medic al vaginal month. Branch insert Insert vaginally and leave in place for 3 consecutiv e weeks, then remove for 1 week. atorvastati Yes [id number] 20mg Take 1 [facility] n 20 mg 6-06 tablet by ity of tablet 00:00: mouth at [place] 00 bedtime. Medical Branch empaglifloz Yes [id number] 25mg Take 1 [facility] in 6-06 tablet by ity of ([place]) 00:00: mouth [place] 25 mg Tab 00 every Medical morning. Branch escitalopra Yes [id number] 20mg Take 1 [facility] m oxalate 6-06 tablet by ity o f (LEXAPRO) 00:00: mouth [place] 20 mg 00 daily. Medical tablet Branch glyBURIDE 5 Yes [id number] TAKE 1 [facility] mg tablet 6-06 TABLET BY ity o f 00:00: MOUTH [place] 00 TWICE Medical DAILY WITH Branch MEALS (NEEDS FOLLOW UP VISIT FOR FURTHER REFILLS) NUVARING Yes [id number] 1{each} Insert 1 [facility] (NUVARING) 6-06 Each into ity of 0.12-0.015 00:00: vagina [place] mg/24 hr 00 once every Medic al vaginal month. Branch insert Insert vaginally and leave in place for 3 consecutiv e weeks, then remove for 1 week. atorvastati Yes [id number] 20mg Take 1 [facility]-06 tablet by [facility] tablet 00:00: mouth at [place] 00 bedtime. [facility] empaglifloz Yes [id number] 25mg Take 1 [facility]-06 tablet by [facility] ([facility]) 00:00: mouth [place] 25 mg Tab 00 every Medical morning. Branch escitalopra Yes [id number] 20mg Take 1 [facility] oxalate 6-06 tablet by [facility] o f (LEXAPRO) 00:00: mouth [place] 20 mg 00 daily. Medical tablet Branch glyBURIDE 5 Yes [id number] TAKE 1 [facility] mg tablet 6-06 TABLET BY [facility] o f 00:00: MOUTH [place] 00 TWICE Medical DAILY WITH Branch MEALS (NEEDS FOLLOW UP VISIT FOR FURTHER REFILLS) NUVARING 2021-0 Yes [id number] 1{each} Insert 1 [facility] (NUVARING) 6-06 Each into [facility] of 0.12-0.015 00:00: vagina [place] mg/24 hr 00 once every Medic al vaginal month. Branch insert Insert vaginally and leave in place for 3 consecutiv e weeks, then remove for 1 week. atorvastati Yes [id number] 20mg Take 1 [facility] 20 mg 6-06 tablet by [facility] tablet 00:00: mouth at [place] 00 bedtime. Medical [facility] empaglifloz Yes [id number] 25mg Take 1 [facility] 6-06 tablet by [facility] ([place]) 00:00: mouth [place] 25 mg Tab 00 every Medical morning. Branch escitalopra Yes [id number] 20mg Take 1 [facility] oxalate 6-06 tablet by [facility] o f (LEXAPRO) 00:00: mouth [place] 20 mg 00 daily. Medical tablet Branch glyBURIDE 5 Yes [id number] TAKE 1 [facility] mg tablet 6-06 TABLET BY [facility] o f 00:00: MOUTH [place] 00 TWICE Medical DAILY WITH Branch MEALS (NEEDS FOLLOW UP VISIT FOR FURTHER REFILLS) NUVARING Yes [id number] 1{each} Insert 1 [facility] (NUVARING) 6-06 Each into [facility]y of 0.12-0.015 00:00: vagina [place] mg/24 hr 00 once every Medic al vaginal month. Branch insert Insert vaginally and leave in place for 3 consecutiv e weeks, then remove for 1 week. atorvastati Yes [id number] 20mg Take 1 [facility] 20 mg 6-06 tablet by [facility] tablet 00:00: mouth at [place] 00 bedtime. Medical [facility] empaglifloz Yes [id number] 25mg Take 1 [facility] in 6-06 tablet by [facility] ([place]) 00:00: mouth [place] 25 mg Tab 00 every Medical morning. Branch escitalopra Yes [id number] 20mg Take 1 [facility] oxalate 6-06 tablet by [facility] o f (LEXAPRO) 00:00: mouth [place] 20 mg 00 daily. Medical tablet Branch glyBURIDE 5 Yes [id number] TAKE 1 [facility] mg tablet 6-06 TABLET BY [facility] o f 00:00: MOUTH [place] 00 TWICE Medical DAILY WITH Branch MEALS (NEEDS FOLLOW UP VISIT FOR FURTHER REFILLS) NUVARING Yes [id number] 1{each} Insert 1 [facility] (NUVARING) 6-06 Each into [facility] of 0.12-0.015 00:00: vagina [place] mg/24 hr 00 once every Medic al vaginal month. Branch insert Insert vaginally and leave in place for 3 consecutiv e weeks, then remove for 1 week. atorvastati Yes [id number] 20mg Take 1 [facility] 20 mg 6-06 tablet by [facility] tablet 00:00: mouth at [place] 00 bedtime. Medical Branch empaglifloz Yes [id number] 25mg Take 1 [facility] in 6-06 tablet by [facility] ([place]) 00:00: mouth [place] 25 mg Tab 00 every Medical morning. Branch escitalopra Yes [id number] 20mg Take 1 [facility] oxalate 6-06 tablet by [facility] o f (LEXAPRO) 00:00: mouth [place] 20 mg 00 daily. Medical tablet Branch glyBURIDE 5 Yes [id number] TAKE 1 [facility] mg tablet 6-06 TABLET BY [facility] o f 00:00: MOUTH [place] 00 TWICE Medical DAILY WITH Branch MEALS (NEEDS FOLLOW UP VISIT FOR FURTHER REFILLS) NUVARING 2021-0 Yes [id number] 1{each} Insert 1 [facility] (NUVARING) 6-06 Each into [facility]y of 0.12-0.015 00:00: vagina [place] mg/24 hr 00 once every Medic al vaginal month. Branch insert Insert vaginally and leave in place for 3 consecutiv e weeks, then remove for 1 week. atorvastati Yes [id number] 20mg Take 1 [facility] 20 mg 6-06 tablet by [facility] tablet 00:00: mouth at [place] 00 bedtime. Medical Branch empaglifloz Yes [id number] 25mg Take 1 [facility] in 6-06 tablet by [facility] ([place]) 00:00: mouth [place] 25 mg Tab 00 every Medical morning. Branch escitalopra Yes [id number] 20mg Take 1 [facility] oxalate 6-06 tablet by [facility] o f (LEXAPRO) 00:00: mouth [place] 20 mg 00 daily. Medical tablet Branch glyBURIDE 5 2021- Yes [id number] TAKE 1 [facility] mg tablet 6-06 TABLET BY [facility] o f 00:00: MOUTH [place] 00 TWICE Medical DAILY WITH Branch MEALS (NEEDS FOLLOW UP VISIT FOR FURTHER REFILLS) NUVARING Yes [id number] 1{each} Insert 1 [facility] (NUVARING) 6-06 Each into [facility] of 0.12-0.015 00:00: vagina [place] mg/24 hr 00 once every Medic al vaginal month. Branch insert Insert vaginally and leave in place for 3 consecutiv e weeks, then remove for 1 week. atorvastati Yes [id number] 20mg Take 1 [facility] 20 mg 6-06 tablet by [facility] of tablet 00:00: mouth at [place] 00 bedtime. Medical Branch empaglifloz Yes [id number] 25mg Take 1 [facility] in 6-06 tablet by [facility] ([place]) 00:00: mouth [place] 25 mg Tab 00 every Medical morning. Branch escitalopra Yes [id number] 20mg Take 1 [facility] oxalate 6-06 tablet by [facility] o f (LEXAPRO) 00:00: mouth [place] 20 mg 00 daily. Medical tablet Branch glyBURIDE 5 Yes [id number] TAKE 1 [facility] mg tablet 6-06 TABLET BY [facility] o f 00:00: MOUTH [place] 00 TWICE Medical DAILY WITH Branch MEALS (NEEDS FOLLOW UP VISIT FOR FURTHER REFILLS) NUVARING Yes [id number] 1{each} Insert 1 [facility] (NUVARING) 6-06 Each into [facility]y of 0.12-0.015 00:00: vagina [place] mg/24 hr 00 once every Medic al vaginal month. Branch insert Insert vaginally and leave in place for 3 consecutiv e weeks, then remove for 1 week. atorvastati Yes [id number] 20mg Take 1 [facility] 20 mg 6-06 tablet by [facility] of tablet 00:00: mouth at [place] 00 bedtime. Medical Branch empaglifloz 2021-0 Yes [id number] 25mg Take 1 [facility] in 6-06 tablet by [facility] ([place]) 00:00: mouth [place] 25 mg Tab 00 every Medical morning. Branch escitalopra Yes [id number] 20mg Take 1 [facility] m oxalate 6-06 tablet by [facility] o f (LEXAPRO) 00:00: mouth [place] 20 mg 00 daily. Medical tablet Branch glyBURIDE 5 Yes [id number] TAKE 1 [facility] mg tablet 6-06 TABLET BY [facility] o f 00:00: MOUTH [place] 00 TWICE Medical DAILY WITH Branch MEALS (NEEDS FOLLOW UP VISIT FOR FURTHER REFILLS) NUVARING Yes [id number] 1{each} Insert 1 [facility] (NUVARING) 6-06 Each into [facility] of 0.12-0.015 00:00: vagina [place] mg/24 hr 00 once every Medic al vaginal month. Branch insert Insert vaginally and leave in place for 3 consecutiv e weeks, then remove for 1 week. atorvastati Yes [id number] 20mg Take 1 [facility] 20 mg 6-06 tablet by [facility] of tablet 00:00: mouth at [place] 00 bedtime. Medical Branch empaglifloz Yes [id number] 25mg Take 1 [facility] in 6-06 tablet by [facility] ([place]) 00:00: mouth [place] 25 mg Tab 00 every Medical morning. Branch escitalopra Yes [id number] 20mg Take 1 [facility] m oxalate 6-06 tablet by [facility] o f (LEXAPRO) 00:00: mouth [place] 20 mg 00 daily. Medical tablet Branch glyBURIDE 5 Yes [id number] TAKE 1 [facility] mg tablet 6-06 TABLET BY [facility] o f 00:00: MOUTH [place] 00 TWICE Medical DAILY WITH Branch MEALS (NEEDS FOLLOW UP VISIT FOR FURTHER REFILLS) NUVARING 2021- Yes [id number] 1{each} Insert 1 [facility] (NUVARING) 6-06 Each into [facility] of 0.12-0.015 00:00: vagina [place] mg/24 hr 00 once every Medic al vaginal month. Branch insert Insert vaginally and leave in place for 3 consecutiv e weeks, then remove for 1 week. atorvastati Yes [id number] 20mg Take 1 [facility] 20 mg 6-06 tablet by [facility] of tablet 00:00: mouth at [place] 00 bedtime. Medical Branch empaglifloz Yes [id number] 25mg Take 1 [facility] in 6-06 tablet by [facility] ([place]) 00:00: mouth [place] 25 mg Tab 00 every Medical morning. Branch escitalopra Yes [id number] 20mg Take 1 [facility] oxalate 6-06 tablet by [facility] o f (LEXAPRO) 00:00: mouth [place] 20 mg 00 daily. Medical tablet Branch glyBURIDE 5 Yes [id number] TAKE 1 [facility] mg tablet 6-06 TABLET BY [facility] o f 00:00: MOUTH [place] 00 TWICE Medical DAILY WITH Branch MEALS (NEEDS FOLLOW UP VISIT FOR FURTHER REFILLS) NUVARING Yes [id number] 1{each} Insert 1 [facility] (NUVARING) 6-06 Each into [facility]y of 0.12-0.015 00:00: vagina [place] mg/24 hr 00 once every Medic al vaginal month. Branch insert Insert vaginally and leave in place for 3 consecutiv e weeks, then remove for 1 week. atorvastati Yes [id number] 20mg Take 1 [facility] 20 mg 6-06 tablet by [facility] of tablet 00:00: mouth at [place] 00 bedtime. Medical Branch empaglifloz Yes [id number] 25mg Take 1 [facility] in 6-06 tablet by [facility] ([place]) 00:00: mouth [place] 25 mg Tab 00 every Medical morning. Branch escitalopra Yes [id number] 20mg Take 1 [facility] m oxalate 6-06 tablet by [facility] o f (LEXAPRO) 00:00: mouth [place] 20 mg 00 daily. Medical tablet Branch glyBURIDE 5 Yes [id number] TAKE 1 [facility] mg tablet 6-06 TABLET BY [facility] o f 00:00: MOUTH [place] 00 TWICE Medical DAILY WITH Branch MEALS (NEEDS FOLLOW UP VISIT FOR FURTHER REFILLS) NUVARING Yes [id number] 1{each} Insert 1 [facility] (NUVARING) 6-06 Each into ity of 0.12-0.015 00:00: vagina [place] mg/24 hr 00 once every Medic al vaginal month. Branch insert Insert vaginally and leave in place for 3 consecutiv e weeks, then remove for 1 week. atorvastati Yes [id number] 20mg Take 1 [facility] 20 mg 6-06 tablet by [facility] of tablet 00:00: mouth at [place] 00 bedtime. Medical Branch empaglifloz Yes [id number] 25mg Take 1 [facility] in 6-06 tablet by [facility] of ([place]) 00:00: mouth [place] 25 mg Tab 00 every Medical morning. Branch escitalopra Yes [id number] 20mg Take 1 [facility] m oxalate 6-06 tablet by [facility] o f (LEXAPRO) 00:00: mouth [place] 20 mg 00 daily. Medical tablet Branch glyBURIDE 5 Yes [id number] TAKE 1 [facility] mg tablet 6-06 TABLET BY [facility] o f 00:00: MOUTH [place] 00 TWICE Medical DAILY WITH Branch MEALS (NEEDS FOLLOW UP VISIT FOR FURTHER REFILLS) NUVARING Yes [id number] 1{each} Insert 1 [facility] (NUVARING) 6-06 Each into ity of 0.12-0.015 00:00: vagina [place] mg/24 hr 00 once every Medic al vaginal month. Branch insert Insert vaginally and leave in place for 3 consecutiv e weeks, then remove for 1 week. atorvastati Yes [id number] 20mg Take 1 [facility] n 20 mg 6-06 tablet by [facility] of tablet 00:00: mouth at [place] 00 bedtime. Medical Branch empaglifloz Yes [id number] 25mg Take 1 [facility] in 6-06 tablet by [facility] of ([place]) 00:00: mouth [place] 25 mg Tab 00 every Medical morning. Branch escitalopra Yes [id number] 20mg Take 1 [facility] m oxalate 6-06 tablet by [facility] o f (LEXAPRO) 00:00: mouth [place] 20 mg 00 daily. Medical tablet Branch glyBURIDE 5 Yes [id number] TAKE 1 [facility] mg tablet 6-06 TABLET BY [facility] o f 00:00: MOUTH [place] 00 TWICE Medical DAILY WITH Branch MEALS (NEEDS FOLLOW UP VISIT FOR FURTHER REFILLS) NUVARING 2021- Yes [id number] 1{each} Insert 1 [facility] (NUVARING) 6-06 Each into ity of 0.12-0.015 00:00: vagina [place] mg/24 hr 00 once every Medic al vaginal month. Branch insert Insert vaginally and leave in place for 3 consecutiv e weeks, then remove for 1 week. atorvastati Yes [id number] 20mg Take 1 [facility] n 20 mg 6-06 tablet by [facility] of tablet 00:00: mouth at [place] 00 bedtime. Medical Branch empaglifloz 0 Yes [id number] 25mg Take 1 [facility] in 6-06 tablet by [facility] of ([place]) 00:00: mouth [place] 25 mg Tab 00 every Medical morning. Branch escitalopra Yes [id number] 20mg Take 1 [facility] m oxalate 6-06 tablet by [facility] o f (LEXAPRO) 00:00: mouth [place] 20 mg 00 daily. Medical tablet Branch glyBURIDE 5 Yes [id number] TAKE 1 [facility] mg tablet 6-06 TABLET BY [facility] o f 00:00: MOUTH [place] 00 TWICE Medical DAILY WITH Branch MEALS (NEEDS FOLLOW UP VISIT FOR FURTHER REFILLS) NUVARING Yes [id number] 1{each} Insert 1 [facility] (NUVARING) 6-06 Each into ity of 0.12-0.015 00:00: vagina [place] mg/24 hr 00 once every Medic al vaginal month. Branch insert Insert vaginally and leave in place for 3 consecutiv e weeks, then remove for 1 week. atorvastati Yes [id number] 20mg Take 1 [facility] n 20 mg 6-06 tablet by [facility] of tablet 00:00: mouth at [place] 00 bedtime. Medical Branch empaglifloz Yes [id number] 25mg Take 1 [facility] in 6-06 tablet by [facility] of ([place]) 00:00: mouth [place] 25 mg Tab 00 every Medical morning. Branch escitalopra Yes [id number] 20mg Take 1 [facility] m oxalate 6-06 tablet by [facility] o f (LEXAPRO) 00:00: mouth [place] 20 mg 00 daily. Medical tablet Branch glyBURIDE 5 Yes [id number] TAKE 1 [facility] mg tablet 6-06 TABLET BY [facility] o f 00:00: MOUTH [place] 00 TWICE Medical DAILY WITH Branch MEALS (NEEDS FOLLOW UP VISIT FOR FURTHER REFILLS) NUVARING 2021- Yes [id number] 1{each} Insert 1 [facility] (NUVARING) 6-06 Each into ity of 0.12-0.015 00:00: vagina [place] mg/24 hr 00 once every Medic al vaginal month. Branch insert Insert vaginally and leave in place for 3 consecutiv e weeks, then remove for 1 week. atorvastati Yes [id number] 20mg Take 1 [facility] n 20 mg 6-06 tablet by [facility] of tablet 00:00: mouth at [place] 00 bedtime. Medical Branch empaglifloz Yes [id number] 25mg Take 1 [facility] in 6-06 tablet by [facility] of ([place]) 00:00: mouth [place] 25 mg Tab 00 every Medical morning. Branch escitalopra Yes [id number] 20mg Take 1 [facility] m oxalate 6-06 tablet by [facility] o f (LEXAPRO) 00:00: mouth [place] 20 mg 00 daily. Medical tablet Branch glyBURIDE 5 Yes [id number] TAKE 1 [facility] mg tablet 6-06 TABLET BY [facility] o f 00:00: MOUTH [place] 00 TWICE Medical DAILY WITH Branch MEALS (NEEDS FOLLOW UP VISIT FOR FURTHER REFILLS) NUVARING Yes [id number] 1{each} Insert 1 [facility] (NUVARING) 6-06 Each into ity of 0.12-0.015 00:00: vagina [place] mg/24 hr 00 once every Medic al vaginal month. Branch insert Insert vaginally and leave in place for 3 consecutiv e weeks, then remove for 1 week. atorvastati Yes [id number] 20mg Take 1 [facility] n 20 mg 6-06 tablet by [facility] of tablet 00:00: mouth at [place] 00 bedtime. Medical Branch empaglifloz Yes [id number] 25mg Take 1 [facility] in 6-06 tablet by [facility] of ([place]) 00:00: mouth [place] 25 mg Tab 00 every Medical morning. Branch escitalopra Yes [id number] 20mg Take 1 [facility] m oxalate 6-06 tablet by [facility] o f (LEXAPRO) 00:00: mouth [place] 20 mg 00 daily. Medical tablet Branch glyBURIDE 5 Yes [id number] TAKE 1 [facility] mg tablet 6-06 TABLET BY [facility] o f 00:00: MOUTH [place] 00 TWICE Medical DAILY WITH Branch MEALS (NEEDS FOLLOW UP VISIT FOR FURTHER REFILLS) NUVARING Yes [id number] 1{each} Insert 1 [facility] (NUVARING) 6-06 Each into ity of 0.12-0.015 00:00: vagina [place] mg/24 hr 00 once every Medic al vaginal month. Branch insert Insert vaginally and leave in place for 3 consecutiv e weeks, then remove for 1 week. atorvastati Yes [id number] 20mg Take 1 [facility] n 20 mg 6-06 tablet by [facility] of tablet 00:00: mouth at [place] 00 bedtime. Medical Branch empaglifloz Yes [id number] 25mg Take 1 [facility] in 6-06 tablet by [facility] of ([place]) 00:00: mouth [place] 25 mg Tab 00 every Medical morning. Branch escitalopra Yes [id number] 20mg Take 1 [facility] m oxalate 6-06 tablet by [facility] o f (LEXAPRO) 00:00: mouth [place] 20 mg 00 daily. Medical tablet Branch glyBURIDE 5 Yes [id number] TAKE 1 [facility] mg tablet 6-06 TABLET BY [facility] o f 00:00: MOUTH [place] 00 TWICE Medical DAILY WITH Branch MEALS (NEEDS FOLLOW UP VISIT FOR FURTHER REFILLS) NUVARING Yes [id number] 1{each} Insert 1 [facility] (NUVARING) 6-06 Each into ity of 0.12-0.015 00:00: vagina [place] mg/24 hr 00 once every Medic al vaginal month. Branch insert Insert vaginally and leave in place for 3 consecutiv e weeks, then remove for 1 week. atorvastati Yes [id number] 20mg Take 1 [facility] n 20 mg 6-06 tablet by [facility] of tablet 00:00: mouth at [place] 00 bedtime. Medical Branch empaglifloz Yes [id number] 25mg Take 1 [facility] in 6-06 tablet by [facility] of ([place]) 00:00: mouth [place] 25 mg Tab 00 every Medical morning. Branch escitalopra Yes [id number] 20mg Take 1 [facility] m oxalate 6-06 tablet by [facility] o f (LEXAPRO) 00:00: mouth [place] 20 mg 00 daily. Medical tablet Branch glyBURIDE 5 Yes [id number] TAKE 1 [facility] mg tablet 6-06 TABLET BY [facility] o f 00:00: MOUTH [place] 00 TWICE Medical DAILY WITH Branch MEALS (NEEDS FOLLOW UP VISIT FOR FURTHER REFILLS) NUVARING Yes [id number] 1{each} Insert 1 [facility] (NUVARING) 6-06 Each into [facility]y of 0.12-0.015 00:00: vagina [place] mg/24 hr 00 once every Medic al vaginal month. Branch insert Insert vaginally and leave in place for 3 consecutiv e weeks, then remove for 1 week. atorvastati Yes [id number] 20mg Take 1 [facility] n 20 mg 6-06 tablet by [facility] of tablet 00:00: mouth at [place] 00 bedtime. Medical Branch empaglifloz Yes [id number] 25mg Take 1 [facility] in 6-06 tablet by [facility] of ([place]) 00:00: mouth [place] 25 mg Tab 00 every Medical morning. Branch escitalopra Yes [id number] 20mg Take 1 [facility] m oxalate 6-06 tablet by [facility] o f (LEXAPRO) 00:00: mouth [place] 20 mg 00 daily. Medical tablet Branch glyBURIDE 5 Yes [id number] TAKE 1 [facility] mg tablet 6-06 TABLET BY [facility] o f 00:00: MOUTH [place] 00 TWICE Medical DAILY WITH Branch MEALS (NEEDS FOLLOW UP VISIT FOR FURTHER REFILLS) atorvastati 2021-0 Yes [id number] 20mg Take 1 [facility] n 20 mg 6-06 tablet by [facility] of tablet 00:00: mouth at [place] 00 bedtime. Medical Branch empaglifloz Yes [id number] 25mg Take 1 [facility] in 6-06 tablet by [facility] of ([place]) 00:00: mouth [place] 25 mg Tab 00 every Medical morning. Branch escitalopra 2021- Yes [id number] 20mg Take 1 [facility] m oxalate 6-06 tablet by [facility] o f (LEXAPRO) 00:00: mouth [place] 20 mg 00 daily. Medical tablet Branch glyBURIDE 5 2021-0 Yes [id number] TAKE 1 [facility] mg tablet 6-06 TABLET BY [facility] o f 00:00: MOUTH [place] 00 TWICE Medical DAILY WITH Branch MEALS (NEEDS FOLLOW UP VISIT FOR FURTHER REFILLS) atorvastati 2021-0 Yes [id number] 20mg Take 1 [facility] n 20 mg 6-06 tablet by [facility] of tablet 00:00: mouth at [place] 00 bedtime. Medical Branch empaglifloz 2021- Yes [id number] 25mg Take 1 [facility] in 6-06 tablet by [facility] of ([place]) 00:00: mouth [place] 25 mg Tab 00 every Medical morning. Branch escitalopra Yes [id number] 20mg Take 1 [facility] m oxalate 6-06 tablet by [facility] o f (LEXAPRO) 00:00: mouth [place] 20 mg 00 daily. Medical tablet Branch glyBURIDE 5 Yes [id number] TAKE 1 [facility] mg tablet 6-06 TABLET BY [facility] o f 00:00: MOUTH [place] 00 TWICE Medical DAILY WITH Branch MEALS (NEEDS FOLLOW UP VISIT FOR FURTHER REFILLS) atorvastati Yes [id number] 20mg Take 1 [facility] n 20 mg 6-06 tablet by [facility] of tablet 00:00: mouth at [place] 00 bedtime. Medical Branch empaglifloz Yes [id number] 25mg Take 1 [facility] in 6-06 tablet by [facility] ([place]) 00:00: mouth [place] 25 mg Tab 00 every Medical morning. Branch escitalopra Yes [id number] 20mg Take 1 [facility] m oxalate 6-06 tablet by [facility] o f (LEXAPRO) 00:00: mouth [place] 20 mg 00 daily. Medical tablet Branch glyBURIDE 5 Yes [id number] TAKE 1 [facility] mg tablet 6-06 TABLET BY [facility] o f 00:00: MOUTH [place] 00 TWICE Medical DAILY WITH Branch MEALS (NEEDS FOLLOW UP VISIT FOR FURTHER REFILLS) atorvastati Yes [id number] 20mg Take 1 [facility] n 20 mg 6-06 tablet by [facility] of tablet 00:00: mouth at [place] 00 bedtime. Medical Branch empaglifloz Yes [id number] 25mg Take 1 [facility] in 6-06 tablet by [facility] ([place]) 00:00: mouth [place] 25 mg Tab 00 every Medical morning. Branch escitalopra Yes [id number] 20mg Take 1 [facility] m oxalate 6-06 tablet by [facility] o f (LEXAPRO) 00:00: mouth [place] 20 mg 00 daily. Medical tablet Branch glyBURIDE 5 Yes [id number] TAKE 1 [facility] mg tablet 6-06 TABLET BY [facility] o f 00:00: MOUTH [place] 00 TWICE Medical DAILY WITH Branch MEALS (NEEDS FOLLOW UP VISIT FOR FURTHER REFILLS) atorvastati Yes [id number] 20mg Take 1 [facility] n 20 mg 6-06 tablet by [facility] of tablet 00:00: mouth at [place] 00 bedtime. Medical Branch empaglifloz Yes [id number] 25mg Take 1 [facility] in 6-06 tablet by [facility] ([place]) 00:00: mouth [place] 25 mg Tab 00 every Medical morning. Branch escitalopra Yes [id number] 20mg Take 1 [facility] m oxalate 6-06 tablet by [facility] o f (LEXAPRO) 00:00: mouth [place] 20 mg 00 daily. Medical tablet Branch glyBURIDE 5 Yes [id number] TAKE 1 [facility] mg tablet 6-06 TABLET BY [facility] o f 00:00: MOUTH [place] 00 TWICE Medical DAILY WITH Branch MEALS (NEEDS FOLLOW UP VISIT FOR FURTHER REFILLS) atorvastati Yes [id number] 20mg Take 1 [facility] n 20 mg 6-06 tablet by [facility] of tablet 00:00: mouth at [place] 00 bedtime. Medical Branch empaglifloz Yes [id number] 25mg Take 1 [facility] in 6-06 tablet by [facility] of ([place]) 00:00: mouth [place] 25 mg Tab 00 every Medical morning. Branch escitalopra Yes [id number] 20mg Take 1 [facility] m oxalate 6-06 tablet by [facility] o f (LEXAPRO) 00:00: mouth [place] 20 mg 00 daily. Medical tablet Branch glyBURIDE 5 Yes [id number] TAKE 1 [facility] mg tablet 6-06 TABLET BY [facility] o f 00:00: MOUTH [place] 00 TWICE Medical DAILY WITH Branch MEALS (NEEDS FOLLOW UP VISIT FOR FURTHER REFILLS) atorvastati Yes [id number] 20mg Take 1 [facility] n 20 mg 6-06 tablet by [facility] of tablet 00:00: mouth at [place] 00 bedtime. Medical Branch empaglifloz Yes [id number] 25mg Take 1 [facility] in 6-06 tablet by [facility] of ([place]) 00:00: mouth [place] 25 mg Tab 00 every Medical morning. Branch escitalopra Yes [id number] 20mg Take 1 [facility] m oxalate 6-06 tablet by [facility] o f (LEXAPRO) 00:00: mouth [place] 20 mg 00 daily. Medical tablet Branch glyBURIDE 5 0 Yes [id number] TAKE 1 [facility] mg tablet 6-06 TABLET BY [facility] o f 00:00: MOUTH [place] 00 TWICE Medical DAILY WITH Branch MEALS (NEEDS FOLLOW UP VISIT FOR FURTHER REFILLS) atorvastati 2021-0 Yes [id number] 20mg Take 1 [facility] n 20 mg 6-06 tablet by [facility] of tablet 00:00: mouth at [place] 00 bedtime. Medical Branch empaglifloz Yes [id number] 25mg Take 1 [facility] in 6-06 tablet by [facility] ([place]) 00:00: mouth [place] 25 mg Tab 00 every Medical morning. Branch escitalopra Yes [id number] 20mg Take 1 [facility] m oxalate 6-06 tablet by [facility] o f (LEXAPRO) 00:00: mouth [place] 20 mg 00 daily. Medical tablet Branch glyBURIDE 5 Yes [id number] TAKE 1 [facility] mg tablet 6-06 TABLET BY [facility] o f 00:00: MOUTH [place] 00 TWICE Medical DAILY WITH Branch MEALS (NEEDS FOLLOW UP VISIT FOR FURTHER REFILLS) atorvastati Yes [id number] 20mg Take 1 [facility] n 20 mg 6-06 tablet by [facility] of tablet 00:00: mouth at [place] 00 bedtime. Medical Branch empaglifloz Yes [id number] 25mg Take 1 [facility] in 6-06 tablet by [facility] ([place]) 00:00: mouth [place] 25 mg Tab 00 every Medical morning. Branch escitalopra Yes [id number] 20mg Take 1 [facility] m oxalate 6-06 tablet by [facility] o f (LEXAPRO) 00:00: mouth [place] 20 mg 00 daily. Medical tablet Branch glyBURIDE 5 Yes [id number] TAKE 1 [facility] mg tablet 6-06 TABLET BY [facility] o f 00:00: MOUTH [place] 00 TWICE Medical DAILY WITH Branch MEALS (NEEDS FOLLOW UP VISIT FOR FURTHER REFILLS) atorvastati 2021- Yes [id number] 20mg Take 1 [facility] n 20 mg 6-06 tablet by [facility] of tablet 00:00: mouth at [place] 00 bedtime. Medical Branch empaglifloz Yes [id number] 25mg Take 1 [facility] in 6-06 tablet by [facility] of ([place]) 00:00: mouth [place] 25 mg Tab 00 every Medical morning. Branch escitalopra 0 Yes [id number] 20mg Take 1 [facility] m oxalate 6-06 tablet by [facility] o f (LEXAPRO) 00:00: mouth [place] 20 mg 00 daily. Medical tablet Branch glyBURIDE 5 0 Yes [id number] TAKE 1 [facility] mg tablet 6-06 TABLET BY [facility] o f 00:00: MOUTH [place] 00 TWICE Medical DAILY WITH Branch MEALS (NEEDS FOLLOW UP VISIT FOR FURTHER REFILLS) atorvastati Yes [id number] 20mg Take 1 [facility] n 20 mg 6-06 tablet by [facility] of tablet 00:00: mouth at [place] 00 bedtime. Medical Branch empaglifloz Yes [id number] 25mg Take 1 [facility] in 6-06 tablet by [facility] ([place]) 00:00: mouth [place] 25 mg Tab 00 every Medical morning. Branch escitalopra Yes [id number] 20mg Take 1 [facility] m oxalate 6-06 tablet by [facility] o f (LEXAPRO) 00:00: mouth [place] 20 mg 00 daily. Medical tablet Branch glyBURIDE 5 Yes [id number] TAKE 1 [facility] mg tablet 6-06 TABLET BY [facility] o f 00:00: MOUTH [place] 00 TWICE Medical DAILY WITH Branch MEALS (NEEDS FOLLOW UP VISIT FOR FURTHER REFILLS) atorvastati 0 Yes [id number] 20mg Take 1 [facility] n 20 mg 6-06 tablet by [facility] of tablet 00:00: mouth at [place] 00 bedtime. Medical Branch empaglifloz 2021-0 Yes [id number] 25mg Take 1 [facility] in 6-06 tablet by [facility] ([place]) 00:00: mouth [place] 25 mg Tab 00 every Medical morning. Branch escitalopra 2021-0 Yes [id number] 20mg Take 1 [facility] m oxalate 6-06 tablet by [facility] o f (LEXAPRO) 00:00: mouth [place] 20 mg 00 daily. Medical tablet Branch glyBURIDE 5 2021-0 Yes [id number] TAKE 1 [facility] mg tablet 6-06 TABLET BY [facility] o f 00:00: MOUTH [place] 00 TWICE Medical DAILY WITH Branch MEALS (NEEDS FOLLOW UP VISIT FOR FURTHER REFILLS) atorvastati Yes [id number] 20mg Take 1 [facility] n 20 mg 6-06 tablet by [facility] tablet 00:00: mouth at [place] 00 bedtime. Medical Branch empaglifloz 0 Yes [id number] 25mg Take 1 [facility] in 6-06 tablet by [facility] ([place]) 00:00: mouth [place] 25 mg Tab 00 every Medical morning. Branch escitalopra Yes [id number] 20mg Take 1 [facility] m oxalate 6-06 tablet by [facility] o f (LEXAPRO) 00:00: mouth [place] 20 mg 00 daily. Medical tablet Branch glyBURIDE 5 Yes [id number] TAKE 1 [facility] mg tablet 6-06 TABLET BY ity o f 00:00: MOUTH [place] 00 TWICE Medical DAILY WITH Branch MEALS (NEEDS FOLLOW UP VISIT FOR FURTHER REFILLS) atorvastati Yes [id number] 20mg Take 1 [facility] n 20 mg 6-06 tablet by ity of tablet 00:00: mouth at [place] 00 bedtime. Medical Branch empaglifloz Yes [id number] 25mg Take 1 [facility] in 6-06 tablet by ity of (JARDIANCE) 00:00: mouth [place] 25 mg Tab 00 every Medical morning. Branch escitalopra 0 Yes [id number] 20mg Take 1 [facility] m oxalate 6-06 tablet by ity o f (LEXAPRO) 00:00: mouth [place] 20 mg 00 daily. Medical tablet Branch glyBURIDE 5 Yes [id number] TAKE 1 [facility] mg tablet 6-06 TABLET BY ity o f 00:00: MOUTH [place] 00 TWICE Medical DAILY WITH Branch MEALS (NEEDS FOLLOW UP VISIT FOR FURTHER REFILLS) atorvastati 2021-0 Yes [id number] 20mg Take 1 [facility] n 20 mg 6-06 tablet by ity of tablet 00:00: mouth at [place] 00 bedtime. Medical Branch empaglifloz 0 Yes [id number] 25mg Take 1 [facility] in 6-06 tablet by ity of (JARDIANCE) 00:00: mouth [place] 25 mg Tab 00 every Medical morning. Branch escitalopra 2021-0 Yes [id number] 20mg Take 1 [facility] m oxalate 6-06 tablet by ity o f (LEXAPRO) 00:00: mouth [place] 20 mg 00 daily. Medical tablet Branch glyBURIDE 5 Yes [id number] TAKE 1 [facility] mg tablet 6-06 TABLET BY ity o f 00:00: MOUTH [place] 00 TWICE Medical DAILY WITH Branch MEALS (NEEDS FOLLOW UP VISIT FOR FURTHER REFILLS) atorvastati Yes [id number] 20mg Take 1 [facility] n 20 mg 6-06 tablet by ity of tablet 00:00: mouth at [place] 00 bedtime. Medical Branch empaglifloz Yes [id number] 25mg Take 1 [facility] in 6-06 tablet by ity of (JARDIANCE) 00:00: mouth [place] 25 mg Tab 00 every Medical morning. Branch escitalopra Yes [id number] 20mg Take 1 [facility] m oxalate 6-06 tablet by ity o f (LEXAPRO) 00:00: mouth [place] 20 mg 00 daily. Medical tablet Branch glyBURIDE 5 Yes [id number] TAKE 1 [facility] mg tablet 6-06 TABLET BY ity o f 00:00: MOUTH [place] 00 TWICE Medical DAILY WITH Branch MEALS (NEEDS FOLLOW UP VISIT FOR FURTHER REFILLS) atorvastati Yes [id number] 20mg Take 1 [facility] n 20 mg 6-06 tablet by ity of tablet 00:00: mouth at [place] 00 bedtime. Medical Branch empaglifloz Yes [id number] 25mg Take 1 [facility] in 6-06 tablet by ity of (JARDIANCE) 00:00: mouth [place] 25 mg Tab 00 every Medical morning. Branch escitalopra Yes [id number] 20mg Take 1 [facility] m oxalate 6-06 tablet by ity o f (LEXAPRO) 00:00: mouth [place] 20 mg 00 daily. Medical tablet Branch glyBURIDE 5 Yes [id number] TAKE 1 [facility] mg tablet 6-06 TABLET BY ity o f 00:00: MOUTH [place] 00 TWICE Medical DAILY WITH Branch MEALS (NEEDS FOLLOW UP VISIT FOR FURTHER REFILLS) atorvastati 2021-0 Yes [id number] 20mg Take 1 [facility] n 20 mg 6-06 tablet by ity of tablet 00:00: mouth at [place] 00 bedtime. Medical Branch escitalopra Yes [id number] 20mg Take 1 [facility] m oxalate 6-06 tablet by ity o f (LEXAPRO) 00:00: mouth [place] 20 mg 00 daily. Medical tablet Branch glyBURIDE 5 Yes [id number] TAKE 1 [facility] mg tablet 6-06 TABLET BY ity o f 00:00: MOUTH [place] 00 TWICE Medical DAILY WITH Branch MEALS (NEEDS FOLLOW UP VISIT FOR FURTHER REFILLS) atorvastati Yes [id number] 20mg Take 1 [facility] n 20 mg 6-06 tablet by ity of tablet 00:00: mouth at [place] 00 bedtime. Medical Branch escitalopra Yes [id number] 20mg Take 1 [facility] m oxalate 6-06 tablet by ity o f (LEXAPRO) 00:00: mouth [place] 20 mg 00 daily. Medical tablet Branch glyBURIDE 5 Yes [id number] TAKE 1 [facility] mg tablet 6-06 TABLET BY ity o f 00:00: MOUTH [place] 00 TWICE Medical DAILY WITH Branch MEALS (NEEDS FOLLOW UP VISIT FOR FURTHER REFILLS) atorvastati Yes [id number] 20mg Take 1 [facility] n 20 mg 6-06 tablet by ity of tablet 00:00: mouth at [place] 00 bedtime. Medical Branch escitalopra Yes [id number] 20mg Take 1 [facility] m oxalate 6-06 tablet by ity o f (LEXAPRO) 00:00: mouth [place] 20 mg 00 daily. Medical tablet Branch glyBURIDE 5 Yes [id number] TAKE 1 [facility] mg tablet 6-06 TABLET BY ity o f 00:00: MOUTH [place] 00 TWICE Medical DAILY WITH Branch MEALS (NEEDS FOLLOW UP VISIT FOR FURTHER REFILLS) atorvastati Yes [id number] 20mg Take 1 [facility] n 20 mg 6-06 tablet by ity of tablet 00:00: mouth at [place] 00 bedtime. Medical Branch escitalopra Yes [id number] 20mg Take 1 [facility] m oxalate 6-06 tablet by ity o f (LEXAPRO) 00:00: mouth [place] 20 mg 00 daily. Medical tablet Branch glyBURIDE 5 Yes [id number] TAKE 1 [facility] mg tablet 6-06 TABLET BY ity o f 00:00: MOUTH [place] 00 TWICE Medical DAILY WITH Branch MEALS (NEEDS FOLLOW UP VISIT FOR FURTHER REFILLS) atorvastati Yes [id number] 20mg Take 1 [facility] n 20 mg 6-06 tablet by ity of tablet 00:00: mouth at [place] 00 bedtime. Medical Branch escitalopra Yes [id number] 20mg Take 1 [facility] m oxalate 6-06 tablet by ity o f (LEXAPRO) 00:00: mouth [place] 20 mg 00 daily. Medical tablet Branch glyBURIDE 5 Yes [id number] TAKE 1 [facility] mg tablet 6-06 TABLET BY ity o f 00:00: MOUTH [place] 00 TWICE Medical DAILY WITH Branch MEALS (NEEDS FOLLOW UP VISIT FOR FURTHER REFILLS) atorvastati Yes [id number] 20mg Take 1 [facility] n 20 mg 6-06 tablet by ity of tablet 00:00: mouth at [place] 00 bedtime. Medical Branch escitalopra Yes [id number] 20mg Take 1 [facility] m oxalate 6-06 tablet by ity o f (LEXAPRO) 00:00: mouth [place] 20 mg 00 daily. Medical tablet Branch glyBURIDE 5 Yes [id number] TAKE 1 [facility] mg tablet 6-06 TABLET BY ity o f 00:00: MOUTH [place] 00 TWICE Medical DAILY WITH Branch MEALS (NEEDS FOLLOW UP VISIT FOR FURTHER REFILLS) atorvastati Yes [id number] 20mg Take 1 [facility] n 20 mg 6-06 tablet by ity of tablet 00:00: mouth at [place] 00 bedtime. Medical Branch escitalopra Yes [id number] 20mg Take 1 [facility] m oxalate 6-06 tablet by ity o f (LEXAPRO) 00:00: mouth [place] 20 mg 00 daily. Medical tablet Branch glyBURIDE 5 Yes [id number] TAKE 1 [facility] mg tablet 6-06 TABLET BY ity o f 00:00: MOUTH [place] 00 TWICE Medical DAILY WITH Branch MEALS (NEEDS FOLLOW UP VISIT FOR FURTHER REFILLS) atorvastati Yes [id number] 20mg Take 1 [facility] n 20 mg 6-06 tablet by ity of tablet 00:00: mouth at [place] 00 bedtime. Medical Branch escitalopra Yes [id number] 20mg Take 1 [facility] m oxalate 6-06 tablet by ity o f (LEXAPRO) 00:00: mouth [place] 20 mg 00 daily. Medical tablet Branch glyBURIDE 5 Yes [id number] TAKE 1 [facility] mg tablet 6-06 TABLET BY ity o f 00:00: MOUTH [place] 00 TWICE Medical DAILY WITH Branch MEALS (NEEDS FOLLOW UP VISIT FOR FURTHER REFILLS) atorvastati Yes [id number] 20mg Take 1 [facility] n 20 mg 6-06 tablet by ity of tablet 00:00: mouth at [place] 00 bedtime. Medical Branch escitalopra Yes [id number] 20mg Take 1 [facility] m oxalate 6-06 tablet by ity o f (LEXAPRO) 00:00: mouth [place] 20 mg 00 daily. Medical tablet Branch glyBURIDE 5 Yes [id number] TAKE 1 [facility] mg tablet 6-06 TABLET BY ity o f 00:00: MOUTH [place] 00 TWICE Medical DAILY WITH Branch MEALS (NEEDS FOLLOW UP VISIT FOR FURTHER REFILLS) atorvastati Yes [id number] 20mg Take 1 [facility] n 20 mg 6-06 tablet by ity of tablet 00:00: mouth at [place] 00 bedtime. Medical Branch escitalopra Yes [id number] 20mg Take 1 [facility] m oxalate 6-06 tablet by ity o f (LEXAPRO) 00:00: mouth [place] 20 mg 00 daily. Medical tablet Branch glyBURIDE 5 Yes [id number] TAKE 1 [facility] mg tablet 6-06 TABLET BY ity o f 00:00: MOUTH [place] 00 TWICE Medical DAILY WITH Branch MEALS (NEEDS FOLLOW UP VISIT FOR FURTHER REFILLS) atorvastati Yes [id number] 20mg Take 1 [facility] n 20 mg 6-06 tablet by ity of tablet 00:00: mouth at [place] 00 bedtime. Medical Branch escitalopra Yes [id number] 20mg Take 1 [facility] m oxalate 6-06 tablet by ity o f (LEXAPRO) 00:00: mouth [place] 20 mg 00 daily. Medical tablet Branch glyBURIDE 5 Yes [id number] TAKE 1 [facility] mg tablet 6-06 TABLET BY ity o f 00:00: MOUTH [place] 00 TWICE Medical DAILY WITH Branch MEALS (NEEDS FOLLOW UP VISIT FOR FURTHER REFILLS) atorvastati Yes [id number] 20mg Take 1 [facility] n 20 mg 6-06 tablet by ity of tablet 00:00: mouth at [place] 00 bedtime. Medical Branch escitalopra Yes [id number] 20mg Take 1 [facility] m oxalate 6-06 tablet by ity o f (LEXAPRO) 00:00: mouth [place] 20 mg 00 daily. Medical tablet Branch glyBURIDE 5 Yes [id number] TAKE 1 [facility] mg tablet -06 TABLET BY ity o f 00:00: MOUTH [place] 00 TWICE Medical DAILY WITH Branch MEALS (NEEDS FOLLOW UP VISIT FOR FURTHER REFILLS) glyBURIDE 5 2022- No [id number] TAKE 1 [facility] mg tablet 01-16-16 TABLET BY ity of 00:00: 00:00 MOUTH [place] 00 :00 TWICE Medical DAILY WITH Branch MEALS (NEEDS FOLLOW UP VISIT FOR FURTHER REFILLS) glyBURIDE 5 2022- No [id number] TAKE 1 [facility] mg tablet 01-1616 TABLET BY ity of 00:00: 00:00 MOUTH [place] 00 :00 TWICE Medical DAILY WITH Branch MEALS (NEEDS FOLLOW UP VISIT FOR FURTHER REFILLS) glyBURIDE 5 2022- No [id number] TAKE 1 [facility] mg tablet 01-1616 TABLET BY ity of 00:00: 00:00 MOUTH [place] 00 :00 TWICE Medical DAILY WITH Branch MEALS (NEEDS FOLLOW UP VISIT FOR FURTHER REFILLS) glyBURIDE 5 2022- No [id number] TAKE 1 [facility] mg tablet 01-1616 TABLET BY ity of 00:00: 00:00 MOUTH [place] 00 :00 TWICE Medical DAILY WITH Branch MEALS (NEEDS FOLLOW UP VISIT FOR FURTHER REFILLS) glyBURIDE 5 2022- No [id number] TAKE 1 [facility] mg tablet 01-1616 TABLET BY ity of 00:00: 00:00 MOUTH [place] 00 :00 TWICE Medical DAILY WITH Branch MEALS (NEEDS FOLLOW UP VISIT FOR FURTHER REFILLS) glyBURIDE 5 2022- No [id number] TAKE 1 [facility] mg tablet 01-16-16 TABLET BY ity of 00:00: 00:00 MOUTH [place] 00 :00 TWICE Medical DAILY WITH Branch MEALS (NEEDS FOLLOW UP VISIT FOR FURTHER REFILLS) glyBURIDE 5 2022- No [id number] TAKE 1 [facility] mg tablet 01-16-16 TABLET BY ity of 00:00: 00:00 MOUTH [place] 00 :00 TWICE Medical DAILY WITH Branch DEMETRICE (NEEDS FOLLOW UP VISIT FOR FURTHER REFILLS) escitalopra 2022- No [id number] 20mg Take 1 [facility] m oxalate 01-16 tablet by ity of (LEXAPRO) 00:00: 00:00 mouth [place] 20 mg 00 :00 daily. Medical tablet Branch atorvastati 2022- No [id number] 20mg Take 1 [facility] n 20 mg 01-16 tablet by ity of tablet 00:00: 00:00 mouth at [place] 00 :00 bedtime. Medical Branch atorvastati 2022- No [id number] 20mg Take 1 [facility] n 20 mg 01-16 tablet by ity of tablet 00:00: 00:00 mouth at [place] 00 :00 bedtime. Medical Branch atorvastati 2022- No [id number] 20mg Take 1 [facility] n 20 mg 01-16 tablet by ity of tablet 00:00: 00:00 mouth at [place] 00 :00 bedtime. Medical Branch atorvastati 2022- No [id number] 20mg Take 1 [facility] n 20 mg 01-16 tablet by ity of tablet 00:00: 00:00 mouth at [place] 00 :00 bedtime. Medical Branch empaglifloz 2022- No [id number] 25mg Take 1 [facility] in 01-16 tablet by ity of ([place]) 00:00: 00:00 [place] 25 [place] Tab 00 :00 every Medical morning. Branch empaglifloz 2022- No [id number] 25mg Take 1 [facility] in 01-16 tablet by [facility]y of ([place]) 00:00: 00:00 mouth [place] 25 [place] Tab 00 :00 every Medical morning. Branch empaglifloz 2022- No [id number] 25mg Take 1 [facility] in 01-16 tablet by ity of (J[place]) 00:00: 00:00 mouth [place] 25 [place] Tab 00 :00 every Medical morning. Branch empaglifloz 2022- No [id number] 25mg Take 1 [facility] in 01-16 tablet by ity of (J[place]) 00:00: 00:00 [place] 25 [place] Tab 00 :00 every Medical morning. [place] empaglifloz 2022- No [id number] 25mg Take 1 [facility] in 01-16 tablet by ity of (J[place]) 00:00: 00:00 mouth [place] 25 [place] Tab 00 :00 every Medical morning. [place] empaglifloz 2022- No [id number] 25mg Take 1 [facility] in 01-16 tablet by ity of (J[place]IANCE) 00:00: 00:00 mouth [place] 25 [place] Tab 00 :00 every Medical morning. Branch NUVARING 2021- No [id number] 1{each} Insert 1 [facility] (NUVARING) 01-16 Each into ity of 0.12-0.015 00:00: 00:00 [place] mg/24 hr 00 :00 once every Medic al vaginal month. Branch insert Insert vaginally and leave in place for 3 consecutiv e weeks, then remove for 1 week. NUVARING 2021- No [id number] 1{each} Insert 1 [facility] (NUVARING) 01-16 Each into ity of 0.12-0.015 00:00: 00:00 vagina [place] mg/24 hr 00 :00 once every Medic al vaginal month. Branch insert Insert vaginally and leave in place for 3 consecutiv e weeks, then remove for 1 week. NUVARING 2021- No [id number] 1{each} Insert 1 [facility] (NUVARING) 01-16 Each into ity of 0.12-0.015 00:00: 00:00 vagina [place] mg/24 hr 00 :00 once every Medic al vaginal month. Branch insert Insert vaginally and leave in place for 3 consecutiv e weeks, then remove for 1 week. MELOXICAM Yes [id number] Take 1 [facility] 15 mg 5-25 tablet by ity of tablet 00:00: mouth once [place] 00 daily Medical Branch MELOXICAM Yes [id number] Take 1 [facility] 15 mg 5-25 tablet by ity of tablet 00:00: mouth once daily Medical Branch MELOXICAM Yes [id number] Take 1 [facility] 15 mg 5-25 tablet by ity of tablet 00:00: mouth once daily Medical Branch MELOXICAM Yes [id number] Take 1 [facility] [place] 15 mg 5-25 tablet by ity of tablet 00:00: mouth once daily Medical Branch MELOXICAM Yes [id number] Take 1 [facility] [place] 15 mg 5-25 tablet by ity of tablet 00:00: mouth once daily Medical Branch MELOXICAM 2021- No [id number] Take 1 [facility] n[facility] 15 mg 5-25 10-04 tablet by [facility] tablet 00:00: 00:00 mouth [place] 00 :00 daily Medical Branch MELOXICAM 2021- No [id number] Take 1 U nivers 15 mg 5-25 10-04 tablet by [facility] tablet 00:00: 00:00 mouth [place] 00 :00 daily Medical Branch MELOXICAM 2021- No [id number] Take 1 U nivers 15 mg 5-25 10-04 tablet by [facility] tablet 00:00: 00:00 mouth once [place] 00 :00 daily Medical Branch GLYBURIDE 5 2021- No [id number] TAKE 1 [facility] mg tablet 5-25 06-06 TABLET BY ity of 00:00: 00:00 MOUTH [place] 00 :00 TWICE Medical DAILY WITH Branch MEALS (NEEDS FOLLOW UP VISIT FOR FURTHER REFILLS) HYDROXYZINE 2021- No [id number] TAKE 1 [facility] 25 mg 5-25 06-01 TABLET BY ity of tablet 00:00: 00:00 MOUTH [place] 00 :00 EVERY 8 Medical HOURS Branch NEEDED FOR ANXIETY semaglutide 2021- No [id number] 1mg inject 1 [facility] (OZEMPIC) 1 4-19 06-06 mg under ity of mg/dose (2 00:00: 00:00 the skin [place] mg/1.5 mL) 00 :00 weekly. Medica l PnIj Branch tiZANidine Yes 4mg Take 1 Unive rs [...] daily as needed (muscle spasm). tiZANidine 2-0 2022- No 4mg Take 1 [facility] ers 4 mg tablet 4-12 -04 tablet by it y of 00:00: 00:00 mouth 3 00 :00 (three) Medical times Branch daily as needed (muscle spasm). tiZANidine 2022-0 2022- No 4mg Take 1 [facility] ers 4 mg tablet 4-12 -04 tablet by it y of 00:00: 00:00 mouth 3 00 :00 (three) Medical times Branch daily as needed (muscle spasm). tiZANidine 2022-0 2022- No 4mg Take 1 [facility] ers 4 mg tablet 4-12 -04 tablet by it y of 00:00: 00:00 mouth 3 00 :00 (three) Medical times Branch daily as needed (muscle spasm). oxyCODONE 5 2021-0 2022- No [id number] 5mg Take 1 [facility] vers mg 4-12 -06 tablet by ity of immediate 00:00: 00:00 mouth [place] release 00 :00 every 6 Medical tablet (six) Branch hours as needed for Pain (scale 7-10). Indication s: acute pain PROMETHAZIN 2022-0 2022- No [id number] TAKE 2 [facility] E 12.5 mg 3-14 06-06 TABLETS BY ity of tablet 00:00: 00:00 MOUTH [place] 00 :00 EVERY 6 Medical HOURS Branch NEEDED FOR VERTIGO ONDANSETRON 2021- No [id number] DISSOLVE 1 [facility] 4 mg 2-15 - TABLET IN ity of disintegrat 00:00: 00:00 MOUTH [place] tablet 00 :00 EVERY 8 Medica l HOURS Branch NEEDED FOR NAUSEA AND VOMITING FOR UP TO 4 DAYS insulin NPH 2021- No [id number] INJECT 20 [facility] (NOVOLIN N 09-06-06 UNITS ity of NPH U-100 00:00: 00:00 SUBCUTANEO [place] INSULIN) 00 :00 USLY ONCE Medica l 100 unit/mL DAILY WITH Br anch injection BREAKFAST escitalopra 2021- No [id number] 20mg Take 1 [facility] m oxalate 09-06 tablet by ity of (LEXAPRO) 00:00: 00:00 mouth [place] 20 mg 00 :00 daily. Medical tablet Branch NOVOLIN R 2021- No [id number] INJECT 15 [facility] REGULAR -21 - UNITS ity of U-100 00:00: 00:00 SUBCUTANEO [place] INSULN 100 00 :00 USLY THREE Med ical unit/mL TIMES Branch solution DAILY BEFORE MEAL(S) MONTELUKAST Yes [id number] Take 1 [facility] 10 mg 1-03 tablet by ity of tablet 00:00: mouth once daily Medical Branch MONTELUKAST Yes [id number] Take 1 [facility] 10 mg 1-03 tablet by ity of tablet 00:00: mouth once daily Medical Branch MONTELUKAST Yes [id number] Take 1 [facility] 10 mg 1-03 tablet by ity of tablet 00:00: mouth once daily Medical Branch MONTELUKAST Yes [id number] Take 1 [facility] 10 mg 1-03 tablet by ity of tablet 00:00: mouth once daily Medical Branch MONTELUKAST Yes [id number] Take 1 [facility] 10 mg 1-03 tablet by ity of tablet 00:00: mouth once daily Medical Branch MONTELUKAST Yes [id number] Take 1 [facility] 10 mg 1-03 tablet by ity of tablet 00:00: mouth once daily Medical Branch MONTELUKAST 2021-0 Yes [id number] Take 1 [facility] 10 mg 1-03 tablet by ity of tablet 00:00: mouth once daily Medical Branch MONTELUKAST 2021-0 Yes [id number] Take 1 [facility] 10 mg 1-03 tablet by ity of tablet 00:00: mouth once daily Medical Branch MONTELUKAST 2021-0 Yes [id number] Take 1 [facility] 10 mg 1-03 tablet by ity of tablet 00:00: mouth once daily Medical Branch MONTELUKAST 0 Yes [id number] Take 1 [facility] 10 mg 1-03 tablet by ity of tablet 00:00: mouth once daily Medical Branch MONTELUKAST 0 Yes [id number] Take 1 [facility] 10 mg 1-03 tablet by ity of tablet 00:00: mouth once daily Medical Branch MONTELUKAST 0 Yes [id number] Take 1 [facility] 10 mg 1-03 tablet by ity of tablet 00:00: mouth once daily Medical Branch MONTELUKAST 2021-0 Yes [id number] Take 1 [facility] 10 mg 1-03 tablet by ity of tablet 00:00: mouth once daily Medical Branch MONTELUKAST 0 Yes [id number] Take 1 [facility] 10 mg 1-03 tablet by ity of tablet 00:00: mouth once daily Medical Branch MONTELUKAST 0 Yes [id number] Take 1 [facility] 10 mg 1-03 tablet by ity of tablet 00:00: mouth once daily Medical Branch MONTELUKAST 2021-0 Yes [id number] Take 1 [facility] 10 mg 1-03 tablet by ity of tablet 00:00: mouth once daily Medical Branch MONTELUKAST 2021-0 Yes [id number] Take 1 [facility] 10 mg 1-03 tablet by ity of tablet 00:00: mouth once daily Medical Branch MONTELUKAST 2021-0 Yes [id number] Take 1 [facility] 10 mg 1-03 tablet by ity of tablet 00:00: mouth once daily Medical Branch MONTELUKAST 2021-0 Yes [id number] Take 1 [facility] 10 mg 1-03 tablet by ity of tablet 00:00: mouth once daily Medical Branch MONTELUKAST Yes [id number] Take 1 [facility] 10 mg 1-03 tablet by ity of tablet 00:00: mouth once [place] daily Medical Branch MONTELUKAST Yes [id number] Take 1 [facility] 10 mg 1-03 tablet by ity of tablet 00:00: mouth once [place] daily Medical Branch MONTELUKAST Yes [id number] Take 1 [facility] 10 mg 1-03 tablet by ity of tablet 00:00: mouth once [place] daily Medical Branch MONTELUKAST Yes [id number] Take 1 [facility] 10 mg 1-03 tablet by ity of tablet 00:00: mouth once [place] daily Medical Branch MONTELUKAST Yes [id number] Take 1 [facility] 10 mg 1-03 tablet by ity of tablet 00:00: mouth once [place] daily Medical Branch MONTELUKAST Yes [id number] Take 1 [facility] 10 mg 1-03 tablet by ity of tablet 00:00: mouth once [place] daily Medical Branch MONTELUKAST 2021- No [id number] Take 1 [facility] 10 mg 1-03 12-05 tablet by ity of tablet 00:00: 00:00 mouth [place] 00 :00 daily Medical Branch MONTELUKAST 2021- No [id number] Take 1 [facility] 10 mg 1-03 12-05 tablet by ity of tablet 00:00: 00:00 mouth [place] 00 :00 daily Medical Branch MONTELUKAST 2021- No [id number] Take 1 [facility] 10 mg 1-03 12-05 tablet by ity of tablet 00:00: 00:00 mouth once [place] 00 :00 daily Medical Branch MONTELUKAST 2021- No [id number] Take 1 [facility] 10 mg 1-03 12-05 tablet by ity of tablet 00:00: 00:00 mouth once [place] 00 :00 daily Medical Branch MONTELUKAST 2021- No [id number] Take 1 [facility] 10 mg 1-03 12-05 tablet by ity of tablet 00:00: 00:00 mouth [place] 00 :00 daily Medical Branch NUVARING 2020-08- No [id number] 1{each} Insert 1 [facility] (NUVARING) 08-27 Each into ity of 0.12-0.015 00:00: 00:00 vagina [place] mg/24 hr 00 :00 once every Medic al vaginal month. [place] insert Insert vaginally and leave in place for 3 consecutiv e weeks, then remove for 1 week. metformin 2020-08- No [id number] TAKE 2 [facility] ER 500 mg 08-27 TABLETS BY ity of 24 hr 00:00: 00:00 MOUTH ONCE [place] tablet 00 :00 DAILY IN Medical THE [place] MORNING AND 3 ONCE DAILY IN THE EVENING. Needs follow up visit for further refills atorvastati 2020-08- No [id number] 20mg Take 1 [facility] n 20 mg 08-27 tablet by ity of tablet 00:00: 00:00 mouth at [place] 00 :00 bedtime. [facility] 2020-08 Yes [id number] 5 ml po q [facility] 200 mg/5 mL 1-13 6 h prn ity o f Liqd 00:00: [facility] [place] [facility] [id number] 5 ml po q [facility] 200 mg/5 mL 1-13 6 h prn ity o f Liqd 00:00: [facility] [place] [facility] Yes [id number] 5 ml po q [facility] 200 mg/5 mL 1-13 6 h prn ity o f Liqd 00:00: [facility] [place] [facility] Yes [id number] 5 ml po q [facility] 200 mg/5 mL 1-13 6 h prn ity o f Liqd 00:00: [facility] [place] [facility] Yes [id number] 5 ml po q [facility] 200 mg/5 mL 1-13 6 h prn ity o f Liqd 00:00: cough [place] [facility] 2020-08 Yes [id number] 5 ml po q [facility] 200 mg/5 mL 1-13 6 h prn ity o f Liqd 00:00: [facility] [place] [facility] Yes [id number] 5 ml po q [facility] 200 mg/5 mL 1-13 6 h prn ity o f Liqd 00:00: cough [place] [facility]- Yes [id number] 5 ml po q [facility] 200 mg/5 mL 1-13 6 h prn ity o f Liqd 00:00: cough [place] [facility] 2020- Yes [id number] 5 ml po q [facility] 200 mg/5 mL 1-13 6 h prn ity o f Liqd 00:00: cough [place] [facility] 2020- Yes [id number] 5 ml po q [facility] 200 mg/5 mL 1-13 6 h prn ity o f Liqd 00:00: cough [place] [facility] 2020- Yes [id number] 5 ml po q [facility] 200 mg/5 mL 1-13 6 h prn ity o f Liqd 00:00: cough [place] [facility] 2020- Yes [id number] 5 ml po q [facility] 200 mg/5 mL 1-13 6 h prn ity o f Liqd 00:00: cough [place] [facility] 2020- Yes [id number] 5 ml po q [facility] 200 mg/5 mL 1-13 6 h prn ity o f Liqd 00:00: cough [place] [facility] 2020- Yes [id number] 5 ml po q [facility] 200 mg/5 mL 1-13 6 h prn ity o f Liqd 00:00: cough [place] [facility] 2020- Yes [id number] 5 ml po q [facility] 200 mg/5 mL 1-13 6 h prn ity o f Liqd 00:00: cough [place] [facility] 2020- Yes [id number] 5 ml po q [facility] 200 mg/5 mL 1-13 6 h prn ity o f Liqd 00:00: cough [place] [facility] 2020- Yes [id number] 5 ml po q [facility] 200 mg/5 mL 1-13 6 h prn ity o f Liqd 00:00: cough [place] [facility] 2020- Yes [id number] 5 ml po q [facility] 200 mg/5 mL 1-13 6 h prn ity o f Liqd 00:00: [facility] Yes [id number] 5 ml po q [facility] 200 mg/5 mL 1-13 6 h prn ity o f Liqd 00:00: [facility] Yes [id number] 5 ml po q [facility] 200 mg/5 mL 1-13 6 h prn ity o f Liqd 00:00: [facility] [place] [facility]- Yes [id number] 5 ml po q [facility] 200 mg/5 mL 1-13 6 h prn ity o f Liqd 00:00: [facility] [place] [facility] Yes [id number] 5 ml po q [facility] 200 mg/5 mL 1-13 6 h prn ity o f Liqd 00:00: [facility] [place] [facility]08 Yes [id number] 5 ml po q [facility] 200 mg/5 mL 1-13 6 h prn ity o f Liqd 00:00: [facility] [place] [facility]08 Yes [id number] 5 ml po q [facility] 200 mg/5 mL 1-13 6 h prn ity o f Liqd 00:00: [facility] [place] [facility] Yes [id number] 5 ml po q [facility] 200 mg/5 mL 1-13 6 h prn ity o f Liqd 00:00: [facility] [place] [facility]- No [id number] 5 ml po q [facility] 200 mg/5 mL 1-13 12-05 6 h prn ity of Liqd 00:00: 00:00 cough [place] 00 [facility] No [id number] 5 ml po q [facility] 200 mg/5 mL 1-13 12-05 6 h prn ity of Liqd 00:00: 00:00 cough [place] 00 [facility] No [id number] 5 ml po q [facility] 200 mg/5 mL 1-13 12-05 6 h prn ity of Liqd 00:00: 00:00 cough [place] 00 :00 Medical Branch Guaifenesin 2020-2- No [id number] 5 ml po q [facility] 200 mg/5 mL 08-25 12-05 6 h prn ity of Liqd 00:00: 00:00 cough [place] 00 :00 Medical Branch Guaifenesin 2020-082- No [id number] 5 ml po q [facility] 200 mg/5 mL 08-25 12-05 6 h prn ity of Liqd 00:00: 00:00 cough [place] 00 :00 Medical Branch mupirocin 2 2020-08 Yes [id number] [facility] to [facility] % ointment 0-25 area(s) 3 [facility] of 00:00: (three) [place] 00 times Medical daily. Branch mupirocin 2 2020-08 Yes [id number] Apply to [facility] % ointment 0-25 area(s) 3 [facility]y of 00:00: (three) [place] times Medical daily. Branch mupirocin 2 2020-08 Yes [id number] Apply to [facility] % ointment 0-25 area(s) 3 ity of 00:00: (three) [place] times Medical daily. Branch mupirocin 2 2020-08 Yes [id number] Apply to [facility] % ointment 0-25 area(s) 3 ity of 00:00: (three) [place] times Medical daily. Branch mupirocin 2 2020-08 Yes [id number] Apply to [facility] % ointment 0-25 area(s) 3 ity of 00:00: (three) [place] times Medical daily. Branch mupirocin 2 2020-08 Yes [id number] Apply to [facility] % ointment 0-25 area(s) 3 ity of 00:00: (three) [place] times Medical daily. Branch mupirocin 2 2020-08 Yes [id number] Apply to [facility] % ointment 0-25 area(s) 3 ity of 00:00: (three) [place] times Medical daily. Branch mupirocin 2 2020-08 Yes [id number] Apply to [facility] % ointment 0-25 area(s) 3 ity of 00:00: (three) [place] times Medical daily. Branch mupirocin 2 2020-08 Yes [id number] Apply to [facility] % ointment 0-25 area(s) 3 ity of 00:00: (three) [place] 00 times Medical daily. Branch mupirocin 2 2020-08 Yes [id number] Apply to [facility] % ointment 0-25 area(s) 3 ity of 00:00: (three) [place] 00 times Medical daily. Branch mupirocin 2 2020-08 Yes [id number] Apply to [facility] % ointment 0-25 area(s) 3 ity of 00:00: (three) [place] 00 times Medical daily. Branch mupirocin 2 2020-08 Yes [id number] Apply to [facility] % ointment 0-25 area(s) 3 ity of 00:00: (three) [place] 00 times Medical daily. Branch mupirocin 2 2020-08 Yes [id number] Apply to [facility] % ointment 0-25 area(s) 3 ity of 00:00: (three) [place] 00 times Medical daily. Branch mupirocin 2 2020-08 Yes [id number] Apply to [facility] % ointment 0-25 area(s) 3 ity of 00:00: (three) [place] 00 times Medical daily. Branch mupirocin 2 2020-08 Yes [id number] Apply to [facility] % ointment 0-25 area(s) 3 ity of 00:00: (three) [place] 00 times Medical daily. Branch mupirocin 2 2020- Yes [id number] Apply to [facility] % ointment 0-25 area(s) 3 ity of 00:00: (three) [place] 00 times Medical daily. Branch mupirocin 2 2020-08 Yes [id number] Apply to [facility] % ointment 0-25 area(s) 3 ity of 00:00: (three) [place] 00 times Medical daily. Branch mupirocin 2 2020- Yes [id number] Apply to [facility] % ointment 0-25 area(s) 3 ity of 00:00: (three) [place] 00 times Medical daily. Branch mupirocin 2 2020- Yes [id number] Apply to [facility] % ointment 0-25 area(s) 3 ity of 00:00: (three) [place] 00 times Medical daily. Branch mupirocin 2 2020-08 Yes [id number] Apply to [facility] % ointment 0-25 area(s) 3 ity of 00:00: (three) [place] 00 times Medical daily. Branch mupirocin 2 2020-08 Yes [id number] Apply to [facility] % ointment 0-25 area(s) 3 ity of 00:00: (three) [place] 00 times Medical daily. Branch mupirocin 2 2020-08 Yes [id number] Apply to [facility] % ointment 0-25 area(s) 3 ity of 00:00: (three) [place] 00 times Medical daily. Branch mupirocin 2 2020-08 Yes [id number] Apply to [facility] % ointment 0-25 area(s) 3 ity of 00:00: (three) [place] 00 times Medical daily. Branch mupirocin 2 2020-08 Yes [id number] Apply to [facility] % ointment 0-25 area(s) 3 ity of 00:00: (three) [place] 00 times Medical daily. Branch mupirocin 2 2020-08 Yes [id number] Apply to [facility] % ointment 0-25 area(s) 3 ity of 00:00: (three) [place] 00 times Medical daily. Branch mupirocin 2 2020-08- No [id number] Apply to [facility] % ointment 0-25 12-05 area(s) 3 ity of 00:00: 00:00 (three) [place] 00 :00 times Medical daily. Branch mupirocin 2 2020-08- No [id number] Apply to [facility] % ointment 0-25 12-05 area(s) 3 ity of 00:00: 00:00 (three) [place] 00 :00 times Medical daily. Branch mupirocin 2 2020-08- No [id number] Apply to [facility] % ointment 0-25 12-05 area(s) 3 ity of 00:00: 00:00 (three) [place] 00 :00 times Medical daily. Branch mupirocin 2 2020-08- No [id number] Apply to [facility] % ointment 0-25 12-05 area(s) 3 ity of 00:00: 00:00 (three) [place] 00 :00 times Medical daily. Branch mupirocin 2 2020-08- No [id number] Apply to [facility] % ointment 0-25 12-05 area(s) 3 ity of 00:00: 00:00 (three) [place] 00 :00 times Medical daily. Branch empaglifloz 2021- No [id number] 10mg Take 1 [facility] in 04-25 06-06 tablet by ity of ([place]) 00:00[place] :[place] daily. [facility] albuterol Yes [id number] 2{puff} Inhale 2 [facility] 90 7-07 Puffs ity of mcg/actuati 00:00: every 6 [place] as on inhaler 00 (six) Medical hours as Branch needed for Wheezing or Shortness of Breath. albuterol Yes [id number] 2{puff} Inhale 2 [facility] 90 7-07 Puffs ity of mcg/actuati 00:00: every 6 [place] as on inhaler 00 (six) Medical hours as Branch needed for Wheezing or Shortness of Breath. albuterol Yes [id number] 2{puff} Inhale 2 [facility] 90 7-07 Puffs ity of mcg/actuati 00:00: every 6 [place] as on inhaler 00 (six) Medical hours as Branch needed for Wheezing or Shortness of Breath. albuterol Yes [id number] 2{puff} Inhale 2 [facility] 90 7-07 Puffs ity of mcg/actuati 00:00: every 6 [place] on inhaler 00 (six) Medical hours as Branch needed for Wheezing or Shortness of Breath. albuterol Yes [id number] 2{puff} Inhale 2 [facility] 90 7-07 Puffs ity of mcg/actuati 00:00: every 6 [place] as on inhaler 00 (six) Medical hours as Branch needed for Wheezing or Shortness of Breath. albuterol Yes [id number] 2{puff} Inhale 2 [facility] 90 7-07 Puffs ity of mcg/actuati 00:00: every 6 [place] as on inhaler 00 (six) Medical hours as Branch needed for Wheezing or Shortness of Breath. albuterol Yes [id number] 2{puff} Inhale 2 [facility] 90 7-07 Puffs ity of mcg/actuati 00:00: every 6 [place] as on inhaler 00 (six) Medical hours as Branch needed for Wheezing or Shortness of Breath. albuterol Yes [id number] 2{puff} Inhale 2 [facility] 90 7-07 Puffs ity of mcg/actuati 00:00: every 6 [place] as on inhaler 00 (six) Medical hours as Branch needed for Wheezing or Shortness of Breath. albuterol Yes [id number] 2{puff} Inhale 2 [facility] 90 7-07 Puffs ity of mcg/actuati 00:00: every 6 [place] as on inhaler 00 (six) Medical hours as Branch needed for Wheezing or Shortness of Breath. albuterol Yes [id number] 2{puff} Inhale 2 [facility] 90 7-07 Puffs ity of mcg/actuati 00:00: every 6 [place] as on inhaler 00 (six) Medical hours as Branch needed for Wheezing or Shortness of Breath. albuterol Yes [id number] 2{puff} Inhale 2 [facility] 90 7-07 Puffs ity of mcg/actuati 00:00: every 6 [place] as on inhaler 00 (six) Medical hours as Branch needed for Wheezing or Shortness of Breath. albuterol Yes [id number] 2{puff} Inhale 2 [facility] 90 7-07 Puffs ity of mcg/actuati 00:00: every 6 [place] as on inhaler 00 (six) Medical hours as Branch needed for Wheezing or Shortness of Breath. albuterol Yes [id number] 2{puff} Inhale 2 [facility] 90 7-07 Puffs ity of mcg/actuati 00:00: every 6 [place] as on inhaler 00 (six) Medical hours as Branch needed for Wheezing or Shortness of Breath. albuterol Yes [id number] 2{puff} Inhale 2 [facility] 90 7-07 Puffs ity of mcg/actuati 00:00: every 6 [place] as on inhaler 00 (six) Medical hours as Branch needed for Wheezing or Shortness of Breath. albuterol Yes [id number] 2{puff} Inhale 2 [facility] 90 7-07 Puffs ity of mcg/actuati 00:00: every 6 [place] as on inhaler 00 (six) Medical hours as Branch needed for Wheezing or Shortness of Breath. albuterol Yes [id number] 2{puff} Inhale 2 [facility] 90 7-07 Puffs ity of mcg/actuati 00:00: every 6 [place] as on inhaler 00 (six) Medical hours as Branch needed for Wheezing or Shortness of Breath. albuterol Yes [id number] 2{puff} Inhale 2 [facility] 90 7-07 Puffs ity of mcg/actuati 00:00: every 6 [place] as on inhaler 00 (six) Medical hours as Branch needed for Wheezing or Shortness of Breath. albuterol Yes [id number] 2{puff} Inhale 2 [facility] 90 7-07 Puffs ity of mcg/actuati 00:00: every 6 [place] as on inhaler 00 (six) Medical hours as Branch needed for Wheezing or Shortness of Breath. albuterol Yes [id number] 2{puff} Inhale 2 [facility] 90 7-07 Puffs ity of mcg/actuati 00:00: every 6 [place] [facility] on inhaler 00 (six) Medical hours as Branch needed for Wheezing or Shortness of Breath. albuterol Yes [id number] 2{puff} Inhale 2 [facility] 90 7-07 Puffs ity of mcg/actuati 00:00: every 6 [place] as on inhaler 00 (six) Medical hours as Branch needed for Wheezing or Shortness of Breath. albuterol Yes [id number] 2{puff} Inhale 2 [facility] 90 7-07 Puffs ity of mcg/actuati 00:00: every 6 [place] as on inhaler 00 (six) Medical hours as Branch needed for Wheezing or Shortness of Breath. albuterol Yes [id number] 2{puff} Inhale 2 [facility] 90 7-07 Puffs ity of mcg/actuati 00:00: every 6 [place] as on inhaler 00 (six) Medical hours as Branch needed for Wheezing or Shortness of Breath. albuterol Yes [id number] 2{puff} Inhale 2 [facility] 90 7-07 Puffs ity of mcg/actuati 00:00: every 6 [place] as on inhaler 00 (six) Medical hours as Branch needed for Wheezing or Shortness of Breath. albuterol Yes [id number] 2{puff} Inhale 2 [facility] 90 7-07 Puffs ity of mcg/actuati 00:00: every 6 [place] as on inhaler 00 (six) Medical hours as Branch needed for Wheezing or Shortness of Breath. albuterol Yes [id number] 2{puff} Inhale 2 [facility] 90 7-07 Puffs ity of mcg/actuati 00:00: every 6 [place] as on inhaler 00 (six) Medical hours as Branch needed for Wheezing or Shortness of Breath. albuterol Yes [id number] 2{puff} Inhale 2 [facility] 90 7-07 Puffs ity of mcg/actuati 00:00: every 6 [place] as on inhaler 00 (six) Medical hours as Branch needed for Wheezing or Shortness of Breath. albuterol Yes [id number] 2{puff} Inhale 2 [facility] 90 7-07 Puffs ity of mcg/actuati 00:00: every 6 [place] as on inhaler 00 (six) Medical hours as Branch needed for Wheezing or Shortness of Breath. albuterol Yes [id number] 2{puff} Inhale 2 [facility] 90 7-07 Puffs ity of mcg/actuati 00:00: every 6 [place] as on inhaler 00 (six) Medical hours as Branch needed for Wheezing or Shortness of Breath. albuterol Yes [id number] 2{puff} Inhale 2 [facility] 90 7-07 Puffs ity of mcg/actuati 00:00: every 6 [place] as on inhaler 00 (six) Medical hours as Branch needed for Wheezing or Shortness of Breath. albuterol Yes [id number] 2{puff} Inhale 2 [facility] 90 7-07 Puffs ity of mcg/actuati 00:00: every 6 [place] as on inhaler 00 (six) Medical hours as Branch needed for Wheezing or Shortness of Breath. albuterol Yes [id number] 2{puff} Inhale 2 [facility] 90 7-07 Puffs ity of mcg/actuati 00:00: every 6 [place] as on inhaler 00 (six) Medical hours as Branch needed for Wheezing or Shortness of Breath. albuterol Yes [id number] 2{puff} Inhale 2 [facility] 90 7-07 Puffs ity of mcg/actuati 00:00: every 6 [place] as on inhaler 00 (six) Medical hours as Branch needed for Wheezing or Shortness of Breath. albuterol Yes [id number] 2{puff} Inhale 2 [facility] 90 7-07 Puffs ity of mcg/actuati 00:00: every 6 [place] as on inhaler 00 (six) Medical hours as Branch needed for Wheezing or Shortness of Breath. albuterol Yes [id number] 2{puff} Inhale 2 [facility] 90 7-07 Puffs ity of mcg/actuati 00:00: every 6 [place] as on inhaler 00 (six) Medical hours as Branch needed for Wheezing or Shortness of Breath. albuterol Yes [id number] 2{puff} Inhale 2 [facility] 90 7-07 Puffs ity of mcg/actuati 00:00: every 6 [place] as on inhaler 00 (six) Medical hours as Branch needed for Wheezing or Shortness of Breath. albuterol Yes [id number] 2{puff} Inhale 2 [facility] 90 7-07 Puffs ity of mcg/actuati 00:00: every 6 [place] as on inhaler 00 (six) Medical hours as Branch needed for Wheezing or Shortness of Breath. albuterol Yes [id number] 2{puff} Inhale 2 [facility] 90 7-07 Puffs ity of mcg/actuati 00:00: every 6 [place] as on inhaler 00 (six) Medical hours as Branch needed for Wheezing or Shortness of Breath. albuterol Yes [id number] 2{puff} Inhale 2 [facility] 90 7-07 Puffs ity of mcg/actuati 00:00: every 6 [place] as on inhaler 00 (six) Medical hours as Branch needed for Wheezing or Shortness of Breath. albuterol Yes [id number] 2{puff} Inhale 2 [facility] 90 7-07 Puffs ity of mcg/actuati 00:00: every 6 [place] as on inhaler 00 (six) Medical hours as Branch needed for Wheezing or Shortness of Breath. albuterol Yes [id number] 2{puff} Inhale 2 [facility] 90 7-07 Puffs ity of mcg/actuati 00:00: every 6 [place] as on inhaler 00 (six) Medical hours as Branch needed for Wheezing or Shortness of Breath. albuterol Yes [id number] 2{puff} Inhale 2 [facility] 90 7-07 Puffs ity of mcg/actuati 00:00: every 6 [place] as on inhaler 00 (six) Medical hours as Branch needed for Wheezing or Shortness of Breath. albuterol Yes [id number] 2{puff} Inhale 2 [facility] 90 7-07 Puffs ity of mcg/actuati 00:00: every 6 [place] as on inhaler 00 (six) Medical hours as Branch needed for Wheezing or Shortness of Breath. albuterol Yes [id number] 2{puff} Inhale 2 [facility] 90 7-07 Puffs ity of mcg/actuati 00:00: every 6 [place] as on inhaler 00 (six) Medical hours as Branch needed for Wheezing or Shortness of Breath. albuterol Yes [id number] 2{puff} Inhale 2 [facility] 90 7-07 Puffs ity of mcg/actuati 00:00: every 6 [place] as on inhaler 00 (six) Medical hours as Branch needed for Wheezing or Shortness of Breath. albuterol Yes [id number] 2{puff} Inhale 2 [facility] 90 7-07 Puffs ity of mcg/actuati 00:00: every 6 [place] as on inhaler 00 (six) Medical hours as Branch needed for Wheezing or Shortness of Breath. albuterol Yes [id number] 2{puff} Inhale 2 [facility] 90 7-07 Puffs ity of mcg/actuati 00:00: every 6 [place] as on inhaler 00 (six) Medical hours as Branch needed for Wheezing or Shortness of Breath. albuterol Yes [id number] 2{puff} Inhale 2 [facility] 90 7-07 Puffs ity of mcg/actuati 00:00: every 6 [place] as on inhaler 00 (six) Medical hours as Branch needed for Wheezing or Shortness of Breath. albuterol Yes [id number] 2{puff} Inhale 2 [facility] 90 7-07 Puffs ity of mcg/actuati 00:00: every 6 [place] as on inhaler 00 (six) Medical hours as Branch needed for Wheezing or Shortness of Breath. albuterol Yes [id number] 2{puff} Inhale 2 [facility] 90 7-07 Puffs ity of mcg/actuati 00:00: every 6 [place] as on inhaler 00 (six) Medical hours as Branch needed for Wheezing or Shortness of Breath. albuterol Yes [id number] 2{puff} Inhale 2 [facility] 90 7-07 Puffs ity of mcg/actuati 00:00: every 6 [place] as on inhaler 00 (six) Medical hours as Branch needed for Wheezing or Shortness of Breath. albuterol Yes [id number] 2{puff} Inhale 2 [facility] 90 7-07 Puffs ity of mcg/actuati 00:00: every 6 [place] as on inhaler 00 (six) Medical hours as Branch needed for Wheezing or Shortness of Breath. albuterol Yes [id number] 2{puff} Inhale 2 [facility] 90 7-07 Puffs ity of mcg/actuati 00:00: every 6 [place] as on inhaler 00 (six) Medical hours as Branch needed for Wheezing or Shortness of Breath. albuterol Yes [id number] 2{puff} Inhale 2 [facility] 90 7-07 Puffs ity of mcg/actuati 00:00: every 6 [place] as on inhaler 00 (six) Medical hours as Branch needed for Wheezing or Shortness of Breath. albuterol Yes [id number] 2{puff} Inhale 2 [facility] 90 7-07 Puffs ity of mcg/actuati 00:00: every 6 [place] as on inhaler 00 (six) Medical hours as Branch needed for Wheezing or Shortness of Breath. albuterol Yes [id number] 2{puff} Inhale 2 [facility] 90 7-07 Puffs ity of mcg/actuati 00:00: every 6 [place] as on inhaler 00 (six) Medical hours as Branch needed for Wheezing or Shortness of Breath. albuterol Yes [id number] 2{puff} Inhale 2 [facility] 90 7-07 Puffs ity of mcg/actuati 00:00: every 6 [place] as on inhaler 00 (six) Medical hours as Branch needed for Wheezing or Shortness of Breath. albuterol Yes [id number] 2{puff} Inhale 2 [facility] 90 7-07 Puffs ity of mcg/actuati 00:00: every 6 [place] as on inhaler 00 (six) Medical hours as Branch needed for Wheezing or Shortness of Breath. albuterol Yes [id number] 2{puff} Inhale 2 [facility] 90 7-07 Puffs ity of mcg/actuati 00:00: every 6 [place] as on inhaler 00 (six) Medical hours as Branch needed for Wheezing or Shortness of Breath. albuterol Yes [id number] 2{puff} Inhale 2 [facility] 90 7-07 Puffs ity of mcg/actuati 00:00: every 6 [place] as on inhaler 00 (six) Medical hours as Branch needed for Wheezing or Shortness of Breath. albuterol Yes [id number] 2{puff} Inhale 2 [facility] 90 7-07 Puffs ity of mcg/actuati 00:00: every 6 [place] as on inhaler 00 (six) Medical hours as Branch needed for Wheezing or Shortness of Breath. albuterol Yes [id number] 2{puff} Inhale 2 [facility] 90 7-07 Puffs ity of mcg/actuati 00:00: every 6 [place] as on inhaler 00 (six) Medical hours as Branch needed for Wheezing or Shortness of Breath. albuterol Yes [id number] 2{puff} Inhale 2 [facility] 90 7-07 Puffs ity of mcg/actuati 00:00: every 6 [place] as on inhaler 00 (six) Medical hours as Branch needed for Wheezing or Shortness of Breath. albuterol Yes [id number] 2{puff} Inhale 2 [facility] 90 7-07 Puffs ity of mcg/actuati 00:00: every 6 [place] as on inhaler 00 (six) Medical hours as Branch needed for Wheezing or Shortness of Breath. albuterol Yes [id number] 2{puff} Inhale 2 [facility] 90 7-07 Puffs ity of mcg/actuati 00:00: every 6 [place] as on inhaler 00 (six) Medical hours as Branch needed for Wheezing or Shortness of Breath. albuterol Yes [id number] 2{puff} Inhale 2 [facility] 90 7-07 Puffs ity of mcg/actuati 00:00: every 6 [place] as on inhaler 00 (six) Medical hours as Branch needed for Wheezing or Shortness of Breath. albuterol Yes [id number] 2{puff} Inhale 2 [facility] 90 7-07 Puffs ity of mcg/actuati 00:00: every 6 [place] as on inhaler 00 (six) Medical hours as Branch needed for Wheezing or Shortness of Breath. albuterol Yes [id number] 2{puff} Inhale 2 [facility] 90 7-07 Puffs ity of mcg/actuati 00:00: every 6 [place] as on inhaler 00 (six) Medical hours as Branch needed for Wheezing or Shortness of Breath. albuterol Yes [id number] 2{puff} Inhale 2 [facility] 90 7-07 Puffs ity of mcg/actuati 00:00: every 6 [place] as on inhaler 00 (six) Medical hours as Branch needed for Wheezing or Shortness of Breath. albuterol Yes [id number] 2{puff} Inhale 2 [facility] 90 7-07 Puffs ity of mcg/actuati 00:00: every 6 [place] as on inhaler 00 (six) Medical hours as Branch needed for Wheezing or Shortness of Breath. albuterol Yes [id number] 2{puff} Inhale 2 [facility] 90 7-07 Puffs ity of mcg/actuati 00:00: every 6 [place] as on inhaler 00 (six) Medical hours as Branch needed for Wheezing or Shortness of Breath. albuterol Yes [id number] 2{puff} Inhale 2 [facility] 90 7-07 Puffs ity of mcg/actuati 00:00: every 6 [place] as on inhaler 00 (six) Medical hours as Branch needed for Wheezing or Shortness of Breath. albuterol Yes [id number] 2{puff} Inhale 2 [facility] 90 7-07 Puffs ity of mcg/actuati 00:00: every 6 [place] as on inhaler 00 (six) Medical hours as Branch needed for Wheezing or Shortness of Breath. albuterol Yes [id number] 2{puff} Inhale 2 [facility] 90 7-07 Puffs ity of mcg/actuati 00:00: every 6 [place] as on inhaler 00 (six) Medical hours as Branch needed for Wheezing or Shortness of Breath. albuterol Yes [id number] 2{puff} Inhale 2 [facility] 90 7-07 Puffs ity of mcg/actuati 00:00: every 6 [place] as on inhaler 00 (six) Medical hours as Branch needed for Wheezing or Shortness of Breath. albuterol Yes [id number] 2{puff} Inhale 2 [facility] 90 7-07 Puffs ity of mcg/actuati 00:00: every 6 [place] as on inhaler 00 (six) Medical hours as Branch needed for Wheezing or Shortness of Breath. albuterol Yes [id number] 2{puff} Inhale 2 [facility] 90 7-07 Puffs ity of mcg/actuati 00:00: every 6 [place] as on inhaler 00 (six) Medical hours as Branch needed for Wheezing or Shortness of Breath. albuterol Yes [id number] 2{puff} Inhale 2 [facility] 90 7-07 Puffs ity of mcg/actuati 00:00: every 6 [place] as on inhaler 00 (six) Medical hours as Branch needed for Wheezing or Shortness of Breath. albuterol Yes [id number] 2{puff} Inhale 2 [facility] 90 7-07 Puffs ity of mcg/actuati 00:00: every 6 [place] as on inhaler 00 (six) Medical hours as Branch needed for Wheezing or Shortness of Breath. albuterol Yes [id number] 2{puff} Inhale 2 [facility] 90 7-07 Puffs ity of mcg/actuati 00:00: every 6 [place] as on inhaler 00 (six) Medical hours as Branch needed for Wheezing or Shortness of Breath. albuterol Yes [id number] 2{puff} Inhale 2 [facility] 90 7-07 Puffs ity of mcg/actuati 00:00: every 6 [place] as on inhaler 00 (six) Medical hours as Branch needed for Wheezing or Shortness of Breath. albuterol Yes [id number] 2{puff} Inhale 2 [facility] 90 7-07 Puffs ity of mcg/actuati 00:00: every 6 [place] as on inhaler 00 (six) Medical hours as Branch needed for Wheezing or Shortness of Breath. albuterol Yes [id number] 2{puff} Inhale 2 [facility] 90 7-07 Puffs ity of mcg/actuati 00:00: every 6 [place] as on inhaler 00 (six) Medical hours as Branch needed for Wheezing or Shortness of Breath. albuterol Yes [id number] 2{puff} Inhale 2 [facility] 90 7-07 Puffs ity of mcg/actuati 00:00: every 6 [place] as on inhaler 00 (six) Medical hours as Branch needed for Wheezing or Shortness of Breath. albuterol Yes [id number] 2{puff} Inhale 2 [facility] 90 7-07 Puffs ity of mcg/actuati 00:00: every 6 [place] as on inhaler 00 (six) Medical hours as Branch needed for Wheezing or Shortness of Breath. albuterol Yes [id number] 2{puff} Inhale 2 [facility] 90 7-07 Puffs ity of mcg/actuati 00:00: every 6 [place] as on inhaler 00 (six) Medical hours as Branch needed for Wheezing or Shortness of Breath. albuterol Yes [id number] 2{puff} Inhale 2 [facility] 90 7-07 Puffs ity of mcg/actuati 00:00: every 6 [place] as on inhaler 00 (six) Medical hours as Branch needed for Wheezing or Shortness of Breath. albuterol Yes [id number] 2{puff} Inhale 2 [facility] 90 7-07 Puffs ity of mcg/actuati 00:00: every 6 [place] as on inhaler 00 (six) Medical hours as Branch needed for Wheezing or Shortness of Breath. albuterol Yes [id number] 2{puff} Inhale 2 [facility] 90 7-07 Puffs ity of mcg/actuati 00:00: every 6 [place] as on inhaler 00 (six) Medical hours as Branch needed for Wheezing or Shortness of Breath. albuterol Yes [id number] 2{puff} Inhale 2 [facility] 90 7-07 Puffs ity of mcg/actuati 00:00: every 6 [place] as on inhaler 00 (six) Medical hours as Branch needed for Wheezing or Shortness of Breath. albuterol Yes [id number] 2{puff} Inhale 2 [facility] 90 7-07 Puffs ity of mcg/actuati 00:00: every 6 [place] as on inhaler 00 (six) Medical hours as Branch needed for Wheezing or Shortness of Breath. albuterol Yes [id number] 2{puff} Inhale 2 [facility] 90 7-07 Puffs ity of mcg/actuati 00:00: every 6 [place] as on inhaler 00 (six) Medical hours as Branch needed for Wheezing or Shortness of Breath. albuterol Yes [id number] 2{puff} Inhale 2 [facility] 90 7-07 Puffs ity of mcg/actuati 00:00: every 6 [place] as on inhaler 00 (six) Medical hours as Branch needed for Wheezing or Shortness of Breath. albuterol Yes [id number] 2{puff} Inhale 2 [facility] 90 7-07 Puffs ity of mcg/actuati 00:00: every 6 [place] as on inhaler 00 (six) Medical hours as Branch needed for Wheezing or Shortness of Breath. albuterol Yes [id number] 2{puff} Inhale 2 [facility] 90 7-07 Puffs ity of mcg/actuati 00:00: every 6 [place] as on inhaler 00 (six) Medical hours as Branch needed for Wheezing or Shortness of Breath. albuterol Yes [id number] 2{puff} Inhale 2 [facility] 90 7-07 Puffs ity of mcg/actuati 00:00: every 6 [place] as on inhaler 00 (six) Medical hours as Branch needed for Wheezing or Shortness of Breath. albuterol Yes [id number] 2{puff} Inhale 2 [facility] 90 7-07 Puffs ity of mcg/actuati 00:00: every 6 [place] as on inhaler 00 (six) Medical hours as Branch needed for Wheezing or Shortness of Breath. albuterol Yes [id number] 2{puff} Inhale 2 [facility] 90 7-07 Puffs ity of mcg/actuati 00:00: every 6 [place] as on inhaler 00 (six) Medical hours as Branch needed for Wheezing or Shortness of Breath. albuterol Yes [id number] 2{puff} Inhale 2 [facility] 90 7-07 Puffs ity of mcg/actuati 00:00: every 6 [place] as on inhaler 00 (six) Medical hours as Branch needed for Wheezing or Shortness of Breath. albuterol Yes [id number] 2{puff} Inhale 2 [facility] 90 7-07 Puffs ity of mcg/actuati 00:00: every 6 [place] as on inhaler 00 (six) Medical hours as Branch needed for Wheezing or Shortness of Breath. albuterol Yes [id number] 2{puff} Inhale 2 [facility] 90 7-07 Puffs ity of mcg/actuati 00:00: every 6 [place] as on inhaler 00 (six) Medical hours as Branch needed for Wheezing or Shortness of Breath. albuterol Yes [id number] 2{puff} Inhale 2 [facility] 90 7-07 Puffs ity of mcg/actuati 00:00: every 6 [place] as on inhaler 00 (six) Medical hours as Branch needed for Wheezing or Shortness of Breath. albuterol Yes [id number] 2{puff} Inhale 2 [facility] 90 7-07 Puffs ity of mcg/actuati 00:00: every 6 [place] as on inhaler 00 (six) Medical hours as Branch needed for Wheezing or Shortness of Breath. albuterol Yes [id number] 2{puff} Inhale 2 [facility] 90 7-07 Puffs ity of mcg/actuati 00:00: every 6 [place] on inhaler 00 (six) Medical hours as Branch needed for Wheezing or Shortness of Breath. albuterol Yes [id number] 2{puff} Inhale 2 [facility] 90 7-07 Puffs ity of mcg/actuati 00:00: every 6 [place] on inhaler 00 (six) Medical hours as Branch needed for Wheezing or Shortness of Breath. albuterol Yes [id number] 2{puff} Inhale 2 [facility] 90 7-07 Puffs ity of mcg/actuati 00:00: every 6 [place] on inhaler 00 (six) Medical hours as Branch needed for Wheezing or Shortness of Breath. albuterol Yes [id number] 2{puff} Inhale 2 [facility] 90 7-07 Puffs ity of mcg/actuati 00:00: every 6 [place] on inhaler 00 (six) Medical hours as Branch needed for Wheezing or Shortness of Breath. albuterol Yes [id number] 2{puff} Inhale 2 [facility] 90 7-07 Puffs ity of mcg/actuati 00:00: every 6 [place] on inhaler 00 (six) Medical hours as Branch needed for Wheezing or Shortness of Breath. albuterol 2022- No [id number] 2{puff} Inhale 2 [facility] 90 7-07 04-19 Puffs ity of mcg/actuati 00:00: 00:00 every 6 [place] inhaler 00 :00 (six) Medical hours as Branch needed for Wheezing or Shortness of Breath. albuterol 2022- No [id number] 2{puff} Inhale 2 [facility] 90 7-07 04-19 Puffs ity of mcg/actuati 00:00: 00:00 every 6 [place] inhaler 00 :00 (six) Medical hours as Branch needed for Wheezing or Shortness of Breath. albuterol 2022- No [id number] 2{puff} Inhale 2 [facility] 90 7-07 04-19 Puffs ity of mcg/actuati 00:00: 00:00 every 6 [place] inhaler 00 :00 (six) Medical hours as Branch needed for Wheezing or Shortness of Breath. albuterol 2022- No [id number] 2{puff} Inhale 2 [facility] 90 7-07 04-19 Puffs ity of mcg/actuati 00:00: 00:00 every 6 [place] inhaler 00 :00 (six) Medical hours as Branch needed for Wheezing or Shortness of Breath. hydrOXYzine 2020- No [id number] 25mg Take 1 [facility] 25 mg 6-03 10-21 tablet by ity of tablet 00:00: 00:00 mouth [place] 00 :00 every 6 Medical (six) Branch hours. TAKE 1-2 TABS PO Q6 HOURS PRN FOR ANXIETY metformin 2020- No [id number] TAKE 2 [facility] ER 500 mg 5-25 11-15 TABLETS BY ity of 24 hr 00:00: 00:00 MOUTH ONCE [place] tablet 00 :00 DAILY IN Medical THE Branch MORNING AND 3 ONCE DAILY IN THE EVENING. Needs follow up visit for further refills atorvastati 2020- No [id number] 20mg Take 1 [facility] n 20 mg 5-25 11-15 tablet by ity of tablet 00:00: 00:00 mouth at [place] 00 :00 bedtime. Medical Branch ondansetron 2021- No [id number] 4mg Take 1 [facility] (ZOFRAN 5-20 02-15 tablet by ity of ODT) 4 mg 00:00: 00:00 mouth [place] disintegrat 00 :00 every 8 Medic al ing tablet (eight) Branch hours as needed for Nausea and Vomiting (N/V) for up to 4 days. hydrocortis Yes [id number] 1{appli Insert 1 [facility] one-pramovi 5-03 cator} Applicator ity of ne rectal 00:00: into [place] foam 00 rectum 2 Medical (two) Branch times daily. hydrocortis Yes [id number] 1{appli Insert 1 [facility] one-pramovi 5-03 cator} Applicator ity of ne rectal 00:00: into [place] foam 00 rectum 2 Medical (two) Branch times daily. hydrocortis Yes [id number] 1{appli Insert 1 [facility] one-pramovi 5-03 cator} Applicator ity of ne rectal 00:00: into [place] foam 00 rectum 2 Medical (two) Branch times daily. hydrocortis Yes [id number] 1{appli Insert 1 [facility] one-pramovi 5-03 cator} Applicator ity of ne rectal 00:00: into [place] foam 00 rectum 2 Medical (two) Branch times daily. hydrocortis Yes [id number] 1{appli Insert 1 [facility] one-pramovi 5-03 cator} Applicator ity of ne rectal 00:00: into [place] foam 00 rectum 2 Medical (two) Branch times daily. hydrocortis Yes [id number] 1{appli Insert 1 [facility] one-pramovi 5-03 cator} Applicator ity of ne rectal 00:00: into [place] foam 00 rectum 2 Medical (two) Branch times daily. hydrocortis Yes [id number] 1{appli Insert 1 [facility] one-pramovi 5-03 cator} Applicator ity of ne rectal 00:00: into [place] foam 00 rectum 2 Medical (two) Branch times daily. hydrocortis Yes [id number] 1{appli Insert 1 [facility] one-pramovi 5-03 cator} Applicator ity of ne rectal 00:00: into [place] foam 00 rectum 2 Medical (two) Branch times daily. hydrocortis Yes [id number] 1{appli Insert 1 [facility] one-pramovi 5-03 cator} Applicator ity of ne rectal 00:00: into [place] foam 00 rectum 2 Medical (two) Branch times daily. hydrocortis Yes [id number] 1{appli Insert 1 [facility] one-pramovi 5-03 cator} Applicator ity of ne rectal 00:00: into [place] foam 00 rectum 2 Medical (two) Branch times daily. hydrocortis Yes [id number] 1{appli Insert 1 [facility] one-pramovi 5-03 cator} Applicator ity of ne rectal 00:00: into [place] foam 00 rectum 2 Medical (two) Branch times daily. hydrocortis Yes [id number] 1{appli Insert 1 [facility] one-pramovi 5-03 cator} Applicator ity of ne rectal 00:00: into [place] foam 00 rectum 2 Medical (two) Branch times daily. hydrocortis Yes [id number] 1{appli Insert 1 [facility] one-pramovi 5-03 cator} Applicator ity of ne rectal 00:00: into [place] foam 00 rectum 2 Medical (two) Branch times daily. hydrocortis Yes [id number] 1{appli Insert 1 [facility] one-pramovi 5-03 cator} Applicator ity of ne rectal 00:00: into [place] foam 00 rectum 2 Medical (two) Branch times daily. hydrocortis Yes [id number] 1{appli Insert 1 [facility] one-pramovi 5-03 cator} Applicator ity of ne rectal 00:00: into [place] foam 00 rectum 2 Medical (two) Branch times daily. hydrocortis Yes [id number] 1{appli Insert 1 [facility] one-pramovi 5-03 cator} Applicator ity of ne rectal 00:00: into [place] foam 00 rectum 2 Medical (two) Branch times daily. hydrocortis Yes [id number] 1{appli Insert 1 [facility] one-pramovi 5-03 cator} Applicator ity of ne rectal 00:00: into [place] foam 00 rectum 2 Medical (two) Branch times daily. hydrocortis Yes [id number] 1{appli Insert 1 [facility] one-pramovi 5-03 cator} Applicator ity of ne rectal 00:00: into [place] foam 00 rectum 2 Medical (two) Branch times daily. hydrocortis Yes [id number] 1{appli Insert 1 [facility] one-pramovi 5-03 cator} Applicator ity of ne rectal 00:00: into [place] foam 00 rectum 2 Medical (two) Branch times daily. hydrocortis Yes [id number] 1{appli Insert 1 [facility] one-pramovi 5-03 cator} Applicator ity of ne rectal 00:00: into [place] foam 00 rectum 2 Medical (two) Branch times daily. hydrocortis Yes [id number] 1{appli Insert 1 [facility] one-pramovi 5-03 cator} Applicator ity of ne rectal 00:00: into [place] foam 00 rectum 2 Medical (two) Branch times daily. hydrocortis Yes [id number] 1{appli Insert 1 [facility] one-pramovi 5-03 cator} Applicator ity of ne rectal 00:00: into [place] foam 00 rectum 2 Medical (two) Branch times daily. hydrocortis Yes [id number] 1{appli Insert 1 [facility] one-pramovi 5-03 cator} Applicator ity of ne rectal 00:00: into [place] foam 00 rectum 2 Medical (two) Branch times daily. hydrocortis Yes [id number] 1{appli Insert 1 [facility] one-pramovi 5-03 cator} Applicator ity of ne rectal 00:00: into [place] foam 00 rectum 2 Medical (two) Branch times daily. hydrocortis Yes [id number] 1{appli Insert 1 [facility] one-pramovi 5- cator} Applicator ity of ne rectal 00:00: into [place] foam 00 rectum 2 Medical (two) Branch times daily. hydrocortis 2021- No [id number] 1{appli Insert 1 [facility] one-pramovi 5-07-17 cator} Applicator ity of ne rectal 00:00: 00:00 into [place] foam 00 :00 rectum 2 Medical (two) Branch times daily. hydrocortis 2021- No [id number] 1{appli Insert 1 [facility] one-pramovi 5-07-17 cator} Applicator ity of ne rectal 00:00: 00:00 into [place] foam 00 :00 rectum 2 Medical (two) Branch times daily. hydrocortis 2021- No [id number] 1{appli Insert 1 [facility] one-pramovi 12-13 cator} Applicator ity of ne rectal 00:00: 00:00 into [place] foam 00 :00 rectum 2 Medical (two) Branch times daily. hydrocortis 2021- No [id number] 1{appli Insert 1 [facility] one-pramovi 12-13 cator} Applicator ity of ne rectal 00:00: 00:00 into [place] foam 00 :00 rectum 2 Medical (two) Branch times daily. hydrocortis 2021- No [id number] 1{appli Insert 1 [facility] one-pramovi 12-13 cator} Applicator ity of ne rectal 00:00: 00:00 into [place] foam 00 :00 rectum 2 Medical (two) Branch times daily. hydrocortis 2021- No [id number] 1{appli Insert 1 [facility] one-pramovi 5-05 cator} Applicator ity of ne rectal 00:00: 00:00 into [place] foam 00 :00 rectum 2 Medical (two) Branch times daily. insulin NPH 2021- No [id number] INJECT 20 Univers (NOVOLIN N 3-03 01-25 UNITS ity of NPH U-100 00:00: 00:00 SUBCUTANEO [place] INSULIN) 00 :00 USLY ONCE Medica l 100 unit/mL DAILY WITH Br anch injection BREAKFAST insulin 2021- No [id number] 15U inject 15 [facility] regular 10-13 01-21 Units ity of human 00:00: 00:00 under the [place] (NOVOLIN R 00 :00 skin 3 Medical REGULAR (three) Branch U-100 times INSULN) 100 daily unit/mL before injection meals. glyBURIDE 5 2020- No [id number] 5mg Take 1 [facility] mg tablet 10-13 1115 tablet by ity of 00:00: 00:00 mouth 2 [place] 00 :00 (two) Medical times Branch daily with meals. Needs follow up visit for further refills Insulin 2019- Yes Use as Univers Syringe-Nee [...] Insulin 2019- Yes Use as [facility] Syringe-Nee -12 directed ity of dle U-100 1 00:00: [place] mL 31 gauge 00 Medical x 5/16 Syrg Branch Insulin 2019-2021- [...] :00 Medical x 5/16 Syrg Branch Insulin 2019-08- No Use as Univers Syringe-Nee 08-24 directed ity of dle U-100 1 00:00: 00:00 [place] mL 31 gauge 00 :00 Medical x 12/26 [facility] hydrocortis 2019-08- No [id number] 25mg Insert 1 Univers one 006-14 Suppositor ity of (ANUSOL-HC) 00:00: 05:59 y into [place] as 25 mg 00 :00 rectum 2 Medical suppository (two) Branch times daily for 10 days. escitalopra 2019-08- No [id number] 5mg Take 1 Univers m oxalate 0- 05-21 tablet by ity of (LEXAPRO) 5 00:00: 00:00 mouth [place] mg tablet 00 :00 daily. [facility] escitalopra 2019-08- No [id number] 5mg Take 1 Univers m oxalate 0- 05-21 tablet by ity of (LEXAPRO) 5 00:00: 00:00 mouth [place] mg tablet 00 :00 daily. [facility] escitalopra 2019-08- No [id number] 5mg Take 1 [facility] m oxalate 0- 05-21 tablet by ity of (LEXAPRO) 5 00:00: 00:00 mouth [place] mg tablet 00 :00 daily. [facility] metformin 2019-08- No [id number] TAKE 2 Univers ER 500 mg 0-01 03-03 TABLETS BY ity of 24 hr 00:00: 00:00 MOUTH ONCE [place] tablet 00 :00 DAILY IN [facility] MORNING AND 3 ONCE DAILY IN THE EVENING. Needs follow up visit for further refills metformin 2019-08- No [id number] TAKE 2 Univers ER 500 mg 0-01 03-03 TABLETS BY ity of 24 hr 00:00: 00:00 MOUTH ONCE [place] tablet 00 :00 DAILY IN [facility] MORNING AND 3 ONCE DAILY IN THE EVENING. Needs follow up visit for further refills metformin 2019-08- No [id number] TAKE 2 [facility] ER 500 mg 0-01 03-03 TABLETS BY ity of 24 hr 00:00: 00:00 MOUTH ONCE [place] tablet 00 :00 DAILY IN [facility] MORNING AND 3 ONCE DAILY IN THE EVENING. Needs follow up visit for further refills glyBURIDE 5 2019-08- No [id number] 5mg Take 1 [facility] mg tablet 0- 11-10 tablet by ity of 00:00: 00:00 mouth 2 [place] 00 :00 (two) Medical times Branch daily with meals. Needs follow up visit for further refills insulin NPH 2019-08- No [id number] USE 10 [facility] (NOVOLIN N 0-01 11-10 UNITS ity of NPH U-100 00:00: 00:00 UNDER [place] INSULIN) 00 :00 SUBCUTANEO Medic al 100 unit/mL USLY DAILY Br anch injection WITH BREAKFAST insulin 2019-08- No [id number] INJECT 10 [facility] regular 0-01 11-10 UNITS ity of human 00:00: 00:00 SUBCUTANEO [place] (NOVOLIN R 00 :00 USLY WITH Medi nirmal REGULAR BREAKFAST Branch U-100 INSULN) 100 unit/mL injection hydrOXYzine 2019-08- No [id number] 25mg Take 1 [facility] 25 mg 0- 11-10 tablet by ity of tablet 00:00: 00:00 mouth [place] 00 :00 every 6 Medical (six) Branch hours. TAKE 1-2 TABS PO Q6 HOURS PRN FOR ANXIETY ondansetron 2019- No [id number] 8mg Take 1 [facility] 8 mg 05-09 tablet by ity of disintegrat 00:00: 00:00 mouth [place] ing tablet 00 :00 every 8 Medica l (eight) Branch hours as needed for Nausea and Vomiting (N/V). hydrocortis 2019- No [id number] Insert Univers one 2.5 % 05-09 into ity of rectal 00:00: 00:00 rectum 2 [place] cream 00 :00 (two) Medical times Branch daily. diphenoxyla 2019- No [id number] 1{tbl} Take 1 Univers te-atropine 05-09 tablet by it y of 2.5-0.025 00:00: 00:00 mouth [place] mg tablet 00 :00 every 6 Medical (six) Branch hours as needed (diarrhea) . ondansetron 2019- No [id number] 8mg Take 1 [facility] 8 mg -07-13 tablet by ity of disintegrat 00:00: 00:00 mouth [place] tablet 00 :00 every 8 Medica l (eight) Branch hours as needed for Nausea and Vomiting (N/V). hydrocortis 2019- No [id number] Insert [facility] one 2.5 % 05-09 into ity of rectal 00:00: 00:00 rectum 2 [place] cream 00 :00 (two) Medical times Branch daily. diphenoxyla 2019- No [id number] 1{tbl} Take 1 [facility] te-atropine 05-09- tablet by it y of 2.5-0.025 00:00: 00:00 mouth [place] mg tablet 00 :00 every 6 Medical (six) Branch hours as needed (diarrhea) . ondansetron 2019- No [id number] 8mg Take 1 [facility] 8 mg 05-09 tablet by ity of disintegrat 00:00: 00:00 mouth [place] tablet 00 :00 every 8 Medica l (eight) Branch hours as needed for Nausea and Vomiting (N/V). hydrocortis 2019- No [id number] Insert [facility] one 2.5 % 05-09 into ity of rectal 00:00: 00:00 rectum 2 [place] cream 00 :00 (two) Medical times Branch daily. diphenoxyla 2019-2019- No [id number] 1{tbl} Take 1 Univers te-atropine 05-09- tablet by it y of 2.5-0.025 00:00: 00:00 mouth [place] mg tablet 00 :00 every 6 Medical (six) Branch hours as needed (diarrhea) . sulindac 2019-2019- No [id number] 200mg Take 1 [facility] 200 mg 2-11 22- tablet by ity of tablet 00:00: 00:00 mouth 2 [place] 00 :00 (two) Medical times Branch daily. sulindac 2019-0 2019- No [id number] 200mg Take 1 [facility] 200 mg 2- 12- tablet by ity of tablet 00:00: 00:00 mouth 2 [place] 00 :00 (two) Medical times Branch daily. sulindac 2019-2019- No [id number] 200mg Take 1 [facility] 200 mg 2- 12- tablet by ity of tablet 00:00: 00:00 mouth 2 [place] 00 :00 (two) Medical times Branch daily. bromphenira 2019-0 2020- No [id number] 5mL Take 5 mL Univers mine-pseudo 08-19 by mouth 4 i ty of ephedrine-D 00:00: 00:00 (four) [place] as M (BROMFED 00 :00 times Medical DM) 2-30-10 daily as Bran ch mg/5 mL needed for syrup Congestion /Allergies or Cold symptoms. bromphenira 2019-0 2020- No [id number] 5mL Take 5 mL [facility] mine-pseudo 08-19 by mouth 4 i ty of ephedrine-D 00:00: 00:00 (four) [place] M (BROMFED 00 :00 times Medical DM) 2-30-10 daily as Bran ch mg/5 mL needed for syrup Congestion /Allergies or Cold symptoms. bromphenira 2019-0 2020- No [id number] 5mL Take 5 mL [facility] mine-pseudo 08-19 by mouth 4 i ty of ephedrine-D 00:00: 00:00 (four) [place] M (BROMFED 00 :00 times Medical DM) 2-30-10 daily as Bran ch mg/5 mL needed for syrup Congestion /Allergies or Cold symptoms. diclofenac 2019- 2020- No [id number] 50mg Take 1 [facility] 50 mg 08-14 tablet by ity of tablet 00:00: 00:00 mouth 3 [place] 00 :00 (three) Medical times Branch daily. diclofenac 2019- 2020- No [id number] 50mg Take 1 [facility] 50 mg 08-14 tablet by ity of tablet 00:00: 00:00 mouth 3 [place] 00 :00 (three) Medical times Branch daily. diclofenac 2019-0 2020- No [id number] 50mg Take 1 [facility] 50 mg 08-14 tablet by ity of tablet 00:00: 00:00 mouth 3 [place] 00 :00 (three) Medical times Branch daily. proMETHazin 2018-08 2020- No [id number] 25mg Take 1 Univers e 25 mg 09-17 tablet by ity of tablet 00:00: 00:00 mouth [place] 00 :00 every 6 Medical (six) Branch hours as needed for Nausea and Vomiting (N/V). proMETHazin 2018-08 2020- No [id number] 25mg Take 1 Univers e 25 mg 09-17 tablet by ity of tablet 00:00: 00:00 mouth [place] 00 :00 every 6 Medical (six) Branch hours as needed for Nausea and Vomiting (N/V). proMETHazin 2018-08- No [id number] 25mg Take 1 Univers e 25 mg 09-17 tablet by ity of tablet 00:00: 00:00 mouth [place] 00 :00 every 6 Medical (six) Branch hours as needed for Nausea and Vomiting (N/V). albuterol 2017-08- No 2{puff} Inhale 2 [facility] 90 08-13 Puffs ity of mcg/actuati 00:00: 00:00 every 4 [place] on inhaler 00 :00 (four) Medical hours as Branch needed for Wheezing or Shortness of Breath. fluticasone 2017-08- No 1{spray Use 1 U nivers 50 08-13 } [place] in ity of mcg/actuati 00:00: 00:00 each [place] on nasal 00 :00 nostril Medical spray daily. Branch ibuprofen 2017-08- No 800mg Take 1 Univ ers 800 mg 08-13 tablet by ity of tablet 00:00: 00:00 mouth [place] 00 :00 every 6 Medical (six) Branch hours as needed for Pain (scale 4-6). albuterol 2017-08- No 2{puff} Inhale 2 [facility] 90 08-13 Puffs ity of mcg/actuati 00:00: 00:00 every 4 [place] inhaler 00 :00 (four) Medical hours as Branch needed for Wheezing or Shortness of Breath. fluticasone 2017-08- No 1{spray Use 1 U nivers 50 08-13 } [place] in ity of mcg/actuati 00:00: 00:00 each [place] on nasal 00 :00 nostril Medical spray daily. Branch ibuprofen 2017-08- No 800mg Take 1 Univ ers 800 mg 08-13 tablet by ity of tablet 00:00: 00:00 mouth [place] 00 :00 every 6 Medical (six) Branch hours as needed for Pain (scale 4-6). albuterol 2017-08- No 2{puff} Inhale 2 [facility] 90 08-13 Puffs ity of mcg/actuati 00:00: 00:00 every 4 [place] inhaler 00 :00 (four) Medical hours as Branch needed for Wheezing or Shortness of Breath. fluticasone 2017-08- No 1{spray Use 1 U nivers 50 08-13 } [place] in ity of mcg/actuati 00:00: 00:00 each [place] on nasal 00 :00 nostril Medical spray daily. Branch ibuprofen 2017-08- No 800mg Take 1 Univ ers 800 mg 08-13 tablet by ity of tablet 00:00: 00:00 mouth [place] 00 :00 every 6 Medical (six) Branch hours as needed for Pain (scale 4-6). Breast Pump 2019- No Use as Uni vers Lisa 04-13 directed ity of 00:00: 00:00 [place] 00 :00 Medical Branch Breast Pump 2019- No Use as Uni vers Lisa 04-13 directed ity of 00:00: 00:00 [place] 00 :00 Medical Branch Breast Pump 2019- No Use as Uni vers Lisa 04-13 directed ity of 00:00: 00:00 [place] 00 :00 Medical Branch blood sugar 2019- No Please, Un joby diagnostic 04-03 dispense ity of (ONETOUCH 00:00: 00:00 test [place] ULTRA TEST) 00 :00 strips for Me dical strip checking Branch FS x8 times per day blood sugar 2019- No Please, Un joby diagnostic 04-03 dispense ity of (ONETOUCH 00:00: 00:00 test [place] ULTRA TEST) 00 :00 strips for Me dical strip checking Branch FS x8 times per day blood sugar 2019- No Please, Un joby diagnostic 04-03 dispense ity of (ONETOUCH 00:00: 00:00 test [place] ULTRA TEST) 00 :00 strips for Me dical strip checking Branch FS x8 times per day Blood 2019- No [id number] Use as Unive rs Pressure 03-27 directed ity of Monitor 00:00: 00:00 [place] (BLOOD 00 :00 Medical PRESSURE Branch KIT) Kit Blood 2019- No [id number] Use as Unive rs Pressure 03-27 directed ity of Monitor 00:00: 00:00 [place] (BLOOD 00 :00 Medical PRESSURE Branch KIT) Kit Blood 2020- No [id number] Use as Unive rs Pressure 03-27 directed ity of Monitor 00:00: 00:00 [place] (BLOOD 00 :00 Medical PRESSURE Branch KIT) Kit Lancets 2019- No Use as Univers (ONETOUCH 01-11 directed ity o f ULTRASOFT 00:00: 00:00 [place] LANCETS) 00 :00 Medical Misc Branch Lancets 2019- No Use as Univers (ONETOUCH 01-11 directed ity o f ULTRASOFT 00:00: 00:00 [place] LANCETS) 00 :00 Medical Misc Branch Lancets 2019- No Use as Univers (ONETOUCH 01-11 directed ity o f ULTRASOFT 00:00: 00:00 [place] LANCETS) 00 :00 Medical [facility] Branch Immunizations Ordered Filled Date Status Comments Source Immunization Name Immunization Name Influenza Virus 2022-05-29 Completed Universit y of Vaccine 00:00:00 [place] [facility] Influenza Virus 2022-05-29 Completed Universit y of Vaccine Quad .5 mL 00:00:00 [place] [facility] IM 6+ MO Branch Influenza Virus 2022-05-29 Completed Universit y of Vaccine 00:00:00 [facility] Branch Influenza Virus 2022-05-29 Completed Universit y of Vaccine Quad .5 mL 00:00:00 [place] Medical IM 6+ MO Branch Influenza Virus 2022-05-29 Completed Universit y of Vaccine 00:00:00 [facility] Branch Influenza Virus 2022-05-29 Completed Universit y of Vaccine Quad .5 mL 00:00:00 [place] Medical IM 6+ MO Branch Influenza Virus 2022-05-29 Completed Universit y of Vaccine 00:00:00 [place] [facility] Influenza Virus 2022-05-29 Completed Universit y of Vaccine Quad .5 mL 00:00:00 [place] Medical IM 6+ MO Branch Influenza Virus 2022-05-29 Completed Universit y of Vaccine 00:00:00 [place] [facility] Influenza Virus 2022-05-29 Completed Universit y of Vaccine Quad .5 mL 00:00:00 [place] [facility] IM 6+ MO Branch Influenza Virus 2022-05-29 Completed Universit y of Vaccine 00:00:00 [place] [facility] Influenza Virus 2022-05-29 Completed Universit y of Vaccine Quad .5 mL 00:00:00 [place] Medical IM 6+ MO Branch Influenza Virus 2022-05-29 Completed Universit y of Vaccine 00:00:00 [place] [facility] Influenza Virus 2022-05-29 Completed Universit y of Vaccine Quad .5 mL 00:00:00 [place] Medical IM 6+ MO Branch Influenza Virus 2022-05-29 Completed Universit y of Vaccine 00:00:00 [place] [facility] Influenza Virus 2022-05-29 Completed Universit y of Vaccine Quad .5 mL 00:00:00 [place] [facility] IM 6+ MO Branch Influenza Virus 2022-05-29 Completed Universit y of Vaccine 00:00:00 [place] [facility] Influenza Virus 2022-05-29 Completed Universit y of Vaccine Quad .5 mL 00:00:00 [facility] 6+ MO Branch Influenza Virus 2022-05-29 Completed Universit y of Vaccine 00:00:00 [place] [facility] Influenza Virus 2022-05-29 Completed Universit y of Vaccine Quad .5 mL 00:00:00 [place] Medical IM 6+ MO Branch Influenza Virus 2022-05-29 Completed Universit y of Vaccine 00:00:00 [place] [facility] Influenza Virus 2022-05-29 Completed Universit y of Vaccine Quad .5 mL 00:00:00 [facility] 6+ MO Branch Influenza Virus 2022-05-29 Completed Universit y of Vaccine 00:00:00 [place] [facility] Influenza Virus 2022-05-29 Completed Universit y of Vaccine Quad .5 mL 00:00:00 [place] [facility] IM 6+ MO Branch Influenza Virus 2022-05-29 Completed Universit y of Vaccine 00:00:00 [place] [facility] Influenza Virus 2022-05-29 Completed Universit y of Vaccine Quad .5 mL 00:00:00 [place] [facility] IM 6+ MO Branch Influenza Virus 2022-05-29 Completed Universit y of Vaccine 00:00:00 [place] [facility] Influenza Virus 2022-05-29 Completed Universit y of Vaccine Quad .5 mL 00:00:00 [place] [facility] IM 6+ MO Branch Influenza Virus 2022-05-29 Completed Universit y of Vaccine 00:00:00 [place] [facility] Influenza Virus 2022-05-29 Completed Universit y of Vaccine Quad .5 mL 00:00:00 [place] Medical IM 6+ MO Branch Influenza Virus 2022-05-29 Completed Universit y of Vaccine 00:00:00 [place] [facility] [place] Influenza Virus 2022-05-29 Completed Universit y of Vaccine Quad .5 mL 00:00:00 [place] [facility] IM 6+ MO Branch Influenza Virus 2022-05-29 Completed Universit y of Vaccine 00:00:00 [place] [facility] [place] Influenza Virus 2022-05-29 Completed Universit y of Vaccine Quad .5 mL 00:00:00 [place] Medical IM 6+ MO Branch Influenza Virus 2022-05-29 Completed Universit y of Vaccine 00:00:00 [place] [facility] [place] Influenza Virus 2022-05-29 Completed Universit y of Vaccine Quad .5 mL 00:00:00 [place] Medical IM 6+ MO Branch Influenza Virus 2022-05-29 Completed Universit y of Vaccine 00:00:00 [place] [facility] Influenza Virus 2022-05-29 Completed Universit y of Vaccine Quad .5 mL 00:00:00 [place] Medical IM 6+ MO Branch Influenza Virus 2022-05-29 Completed Universit y of Vaccine 00:00:00 [place] [facility] [place] Influenza Virus 2022-05-29 Completed Universit y of Vaccine Quad .5 mL 00:00:00 [place] Medical IM 6+ MO Branch Influenza Virus 2022-05-29 Completed Universit y of Vaccine 00:00:00 [place] [facility] Influenza Virus 2022-05-29 Completed Universit y of Vaccine Quad .5 mL 00:00:00 [place] [facility] IM 6+ MO Branch Influenza Virus 2022-05-29 Completed Universit y of Vaccine 00:00:00 [place] [facility] [place] Influenza Virus 2022-05-29 Completed Universit y of Vaccine Quad .5 mL 00:00:00 [place] [facility] IM 6+ MO [facility] Influenza Virus 2022-05-29 Completed [facility]:00[facility]00 [facility] Influenza Virus 2022-05-29 Completed [facility] Vaccine Quad .5 mL 00:00:00 [facility] Influenza Virus 2022-05-29 Completed [facility] Vaccine 00:00:00 [facility] Influenza Virus 2022-05-29 Completed [facility] Vaccine Quad .5 mL 00:00:00 [facility] Influenza Virus 2022-05-29 Completed [facility] Vaccine 00:00:00 [facility] Influenza Virus 2022-05-29 Completed [facility] Vaccine Quad .5 mL 00:00:00 [facility] Influenza Virus 2022-05-29 Completed [facility] Vaccine 00:00:00 [facility] Influenza Virus 2022-05-29 Completed [facility] Vaccine Quad .5 mL 00:00:00 [facility] Influenza Virus 2022-05-29 Completed [facility] Vaccine 00:00:00 [facility] Influenza Virus 2022-05-29 Completed [facility] Vaccine Quad .5 mL 00:00:00 [facility] Influenza Virus 2022-05-29 Completed [facility] Vaccine 00:00:00 [facility] Influenza Virus 2022-05-29 Completed [facility] Vaccine Quad .5 mL 00:00:00 [facility] Influenza Virus 2022-05-29 Completed [facility] Vaccine 00:00:00 [facility] Influenza Virus 2022-05-29 Completed [facility] Vaccine Quad .5 mL 00:00:00 [facility] Influenza Virus 2022-05-29 Completed [facility] Vaccine 00:00:00 [facility] Influenza Virus 2022-05-29 Completed [facility] Vaccine Quad .5 mL 00:00:00 [facility] Influenza Virus 2022-05-29 Completed [facility] Vaccine 00:00:00 [facility] Influenza Virus 2022-05-29 Completed [facility] Vaccine Quad .5 mL 00:00:00 [facility] Influenza Virus 2022-05-29 Completed [facility] Vaccine 00:00:00 [facility] Influenza Virus 2022-05-29 Completed [facility] Vaccine Quad .5 mL 00:00:00 [facility] Influenza Virus 2022-05-29 Completed [facility] Vaccine 00:00:00 [facility] Influenza Virus 2022-05-29 Completed [facility] Vaccine Quad .5 mL 00:00:00 [facility] Influenza Virus 2022-05-29 Completed [facility] Vaccine 00:00:00 [facility] Influenza Virus 2022-05-29 Completed [facility] Vaccine Quad .5 mL 00:00:00 [facility] Influenza Virus 2022-05-29 Completed [facility] Vaccine 00:00:00 [facility] Influenza Virus 2022-05-29 Completed [facility] Vaccine Quad .5 mL 00:00:00 [facility] Influenza Virus 2022-05-29 Completed [facility] Vaccine 00:00:00 [facility] Influenza Virus 2022-05-29 Completed [facility] Vaccine Quad .5 mL 00:00:00 [facility] Influenza Virus 2022-05-29 Completed [facility] Vaccine 00:00:00 [facility] Influenza Virus 2022-05-29 Completed [facility] Vaccine Quad .5 mL 00:00:00 [facility] IM [facility] Influenza Virus 2022-05-29 Completed [facility] Vaccine 00:00:00 [facility] Influenza Virus 2022-05-29 Completed [facility] Vaccine Quad .5 mL 00:00:00 [facility] Influenza Virus 2022-05-29 Completed [facility] Vaccine 00:00:00 [facility] Influenza Virus 2022-05-29 Completed [facility] Vaccine Quad .5 mL 00:00:00 [facility] Influenza Virus 2022-05-29 Completed [facility] Vaccine 00:00:00 [facility] Influenza Virus 2022-05-29 Completed [facility] Vaccine Quad .5 mL 00:00:00 [facility] Influenza Virus 2022-05-29 Completed [facility] Vaccine 00:00:00 [facility] Influenza Virus 2022-05-29 Completed [facility] Vaccine Quad .5 mL 00:00:00 [facility] Influenza Virus 2022-05-29 Completed [facility] Vaccine 00:00:00 [facility] Influenza Virus 2022-05-29 Completed [facility] Vaccine Quad .5 mL 00:00:00 [facility] Influenza Virus 2022-05-29 Completed [facility] Vaccine 00:00:00 [facility] Influenza Virus 2022-05-29 Completed [facility] Vaccine Quad .5 mL 00:00:00 [facility] Influenza Virus 2022-05-29 Completed [facility] Vaccine 00:00:00 [facility] Influenza Virus 2022-05-29 Completed [facility] Vaccine Quad .5 mL 00:00:00 [facility] Influenza Virus 2022-05-29 Completed [facility] Vaccine 00:00:00 [facility] Influenza Virus 2022-05-29 Completed [facility] Vaccine Quad .5 mL 00:00:00 [facility] Influenza Virus 2022-05-29 Completed [facility] Vaccine 00:00:00 [facility] Influenza Virus 2022-05-29 Completed [facility] Vaccine Quad .5 mL 00:00:00 [facility] Influenza Virus 2022-05-29 Completed [facility] Vaccine 00:00:00 [facility] Influenza Virus 2022-05-29 Completed [facility] Vaccine Quad .5 mL 00:00:00 [facility] Influenza Virus 2022-05-29 Completed [facility] Vaccine 00:00:00 [facility] Influenza Virus 2022-05-29 Completed [facility] Vaccine Quad .5 mL 00:00:00 [facility] Influenza Virus 2022-05-29 Completed [facility] Vaccine 00:00:00 [facility] Influenza Virus 2022-05-29 Completed [facility] Vaccine Quad .5 mL 00:00:00 [facility] Influenza Virus 2022-05-29 Completed [facility] Vaccine 00:00:00 [facility] Influenza Virus 2022-05-29 Completed [facility] Vaccine Quad .5 mL 00:00:00 [facility] Influenza Virus 2022-05-29 Completed [facility] Vaccine 00:00:00 [facility] Influenza Virus 2022-05-29 Completed [facility] Vaccine Quad .5 mL 00:00:00 [facility] Influenza Virus 2022-05-29 Completed [facility] Vaccine 00:00:00 [facility] Influenza Virus 2022-05-29 Completed [facility] Vaccine Quad .5 mL 00:00:00 [facility] Influenza Virus 2022-05-29 Completed [facility] Vaccine 00:00:00 [facility] Influenza Virus 2022-05-29 Completed [facility] Vaccine Quad .5 mL 00:00:00 [facility] Influenza Virus 2022-05-29 Completed [facility] Vaccine 00:00:00 [facility] Influenza Virus 2022-05-29 Completed [facility] Vaccine Quad .5 mL 00:00:00 [facility] Influenza Virus 2022-05-29 Completed [facility] Vaccine 00:00:00 [facility] Influenza Virus 2022-05-29 Completed [facility] Vaccine Quad .5 mL 00:00:00 [facility] Influenza Virus 2022-05-29 Completed [facility] Vaccine 00:00:00 [facility] Influenza Virus 2022-05-29 Completed [facility] Vaccine Quad .5 mL 00:00:00 [facility] Influenza Virus 2022-05-29 Completed [facility] Vaccine 00:00:00 [facility] Influenza Virus 2022-05-29 Completed [facility] Vaccine Quad .5 mL 00:00:00 [facility] Influenza Virus 2022-05-29 Completed [facility] Vaccine 00:00:00 [facility] Influenza Virus 2022-05-29 Completed [facility] Vaccine Quad .5 mL 00:00:00 [facility] Influenza Virus 2022-05-29 Completed [facility] Vaccine 00:00:00 [facility] Influenza Virus 2022-05-29 Completed [facility] Vaccine Quad .5 mL 00:00:00 [facility] Influenza Virus 2022-05-29 Completed [facility] Vaccine 00:00:00 [facility] Influenza Virus 2022-05-29 Completed [facility] Vaccine Quad .5 mL 00:00:00 [facility] Influenza Virus 2022-05-29 Completed [facility] Vaccine 00:00:00 [facility] Influenza Virus 2022-05-29 Completed [facility] Vaccine Quad .5 mL 00:00:00 [facility] Influenza Virus 2022-05-29 Completed [facility] Vaccine 00:00:00 [facility] Influenza Virus 2022-05-29 Completed [facility] Vaccine Quad .5 mL 00:00:00 [facility] Influenza Virus 2022-05-29 Completed [facility] Vaccine 00:00:00 [facility] Influenza Virus 2022-05-29 Completed [facility] Vaccine Quad .5 mL 00:00:00 [facility] Influenza Virus 2022-05-29 Completed [facility] Vaccine 00:00:00 [facility] Influenza Virus 2022-05-29 Completed [facility] Vaccine Quad .5 mL 00:00:00 [facility] Influenza Virus 2022-05-29 Completed [facility] Vaccine 00:00:00 [facility] Influenza Virus 2022-05-29 Completed [facility] Vaccine Quad .5 mL 00:00:00 [facility] Influenza Virus 2022-05-29 Completed [facility] Vaccine 00:00:00 [facility] Influenza Virus 2022-05-29 Completed [facility] Vaccine Quad .5 mL 00:00:00 [facility] Influenza Virus 2022-05-29 Completed [facility] Vaccine 00:00:00 [facility] Influenza Virus 2022-05-29 Completed [facility] Vaccine Quad .5 mL 00:00:00 [facility] Influenza Virus 2022-05-29 Completed [facility] Vaccine 00:00:00 [facility] Influenza Virus 2022-05-29 Completed [facility] Vaccine Quad .5 mL 00:00:00 [facility] Influenza Virus 2022-05-29 Completed [facility] Vaccine 00:00:00 [facility] Influenza Virus 2022-05-29 Completed [facility] Vaccine Quad .5 mL 00:00:00 [facility] Influenza Virus 2022-05-29 Completed [facility] Vaccine 00:00:00 [facility] Influenza Virus 2022-05-29 Completed [facility] Vaccine Quad .5 mL 00:00:00 [facility] Influenza Virus 2022-05-29 Completed [facility] Vaccine 00:00:00 [facility] Influenza Virus 2022-05-29 Completed [facility] Vaccine Quad .5 mL 00:00:00 [facility] Influenza Virus 2022-05-29 Completed [facility] Vaccine 00:00:00 [facility] Influenza Virus 2022-05-29 Completed [facility] Vaccine Quad .5 mL 00:00:00 [facility] Influenza Virus 2022-05-29 Completed [facility] Vaccine 00:00:00 [facility] Influenza Virus 2022-05-29 Completed [facility] Vaccine Quad .5 mL 00:00:00 [facility] Influenza Virus 2022-05-29 Completed [facility] Vaccine 00:00:00 [facility] Influenza Virus 2022-05-29 Completed [facility] Vaccine Quad .5 mL 00:00:00 [facility] Influenza Virus 2022-05-29 Completed [facility] Vaccine 00:00:00 [facility] Influenza Virus 2022-05-29 Completed [facility] Vaccine Quad .5 mL 00:00:00 [facility] Influenza Virus 2022-05-29 Completed [facility] Vaccine 00:00:00 [facility] Influenza Virus 2022-05-29 Completed [facility] Vaccine Quad .5 mL 00:00:00 [facility] Influenza Virus 2022-05-29 Completed [facility] Vaccine 00:00:00 [facility] Influenza Virus 2022-05-29 Completed [facility] Vaccine Quad .5 mL 00:00:00 [facility] Influenza Virus 2022-05-29 Completed [facility] Vaccine 00:00:00 [facility] Influenza Virus 2022-05-29 Completed [facility] Vaccine Quad .5 mL 00:00:00 [facility] Influenza Virus 2022-05-29 Completed [facility] Vaccine 00:00:00 [facility] Influenza Virus 2022-05-29 Completed [facility] Vaccine Quad .5 mL 00:00:00 [facility] Influenza Virus 2022-05-29 Completed [facility] Vaccine 00:00:00 [facility] Influenza Virus 2022-05-29 Completed [facility] Vaccine Quad .5 mL 00:00:00 [facility] Influenza Virus 2022-05-29 Completed [facility] Vaccine 00:00:00 [facility] Influenza Virus 2022-05-29 Completed [facility] Vaccine Quad .5 mL 00:00:00 [facility] Influenza Virus 2022-05-29 Completed [facility] Vaccine 00:00:00 [facility] Influenza Virus 2022-05-29 Completed [facility] Vaccine Quad .5 mL 00:00:00 [facility] Influenza Virus 2022-05-29 Completed [facility] Vaccine 00:00:00 [facility] Influenza Virus 2022-05-29 Completed [facility] Vaccine Quad .5 mL 00:00:00 [facility] Influenza Virus 2022-05-29 Completed [facility] Vaccine 00:00:00 [facility] Influenza Virus 2022-05-29 Completed [facility] Vaccine Quad .5 mL 00:00:00 [facility] Influenza Virus 2022-05-29 Completed [facility] Vaccine 00:00:00 [facility] Influenza Virus 2022-05-29 Completed [facility] Vaccine Quad .5 mL 00:00:00 [facility] Influenza Virus 2022-05-29 Completed [facility] Vaccine 00:00:00 [facility] Influenza Virus 2022-05-29 Completed [facility] Vaccine Quad .5 mL 00:00:00 [facility] Influenza Virus 2022-05-29 Completed [facility] Vaccine 00:00:00 [facility] Influenza Virus 2022-05-29 Completed [facility] Vaccine Quad .5 mL 00:00:00 [facility] Influenza Virus 2022-05-29 Completed [facility] Vaccine 00:00:00 [facility] Influenza Virus 2022-05-29 Completed [facility] Vaccine Quad .5 mL 00:00:00 [facility] Influenza Virus 2022-05-29 Completed [facility] Vaccine 00:00:00 [facility] Influenza Virus 2022-05-29 Completed [facility] Vaccine Quad .5 mL 00:00:00 [facility] Influenza Virus 2022-05-29 Completed [facility] Vaccine 00:00:00 [facility] Influenza Virus 2022-05-29 Completed [facility] Vaccine Quad .5 mL 00:00:00 [facility] Influenza Virus 2022-05-29 Completed [facility] Vaccine 00:00:00 [facility] Influenza Virus 2022-05-29 Completed [facility] Vaccine Quad .5 mL 00:00:00 [facility] Influenza Virus 2022-05-29 Completed [facility] Vaccine 00:00:00 [facility] Influenza Virus 2022-05-29 Completed [facility] Vaccine Quad .5 mL 00:00:00 [facility] Influenza Virus 2022-05-29 Completed [facility] Vaccine 00:00:00 [facility] Influenza Virus 2022-05-29 Completed [facility] Vaccine Quad .5 mL 00:00:00 [facility] Influenza Virus 2022-05-29 Completed [facility] Vaccine 00:00:00 [facility] Influenza Virus 2022-05-29 Completed [facility] Vaccine Quad .5 mL 00:00:00 [facility] Influenza Virus 2022-05-29 Completed [facility] Vaccine 00:00:00 [facility] Influenza Virus 2022-05-29 Completed [facility] Vaccine Quad .5 mL 00:00:00 [facility] Influenza Virus 2022-05-29 Completed [facility] Vaccine 00:00:00 [facility] Influenza Virus 2022-05-29 Completed [facility] Vaccine Quad .5 mL 00:00:00 [facility] Influenza Virus 2022-05-29 Completed [facility] Vaccine 00:00:00 [facility] Influenza Virus 2022-05-29 Completed [facility] Vaccine Quad .5 mL 00:00:00 [facility] Influenza Virus 2022-05-29 Completed [facility] Vaccine 00:00:00 [facility] Influenza Virus 2022-05-29 Completed [facility] Vaccine Quad .5 mL 00:00:00 [facility] Influenza Virus 2022-05-29 Completed [facility] Vaccine 00:00:00 [facility] Influenza Virus 2022-05-29 Completed [facility] Vaccine Quad .5 mL 00:00:00 [facility] Influenza Virus 2022-05-29 Completed [facility] Vaccine 00:00:00 [facility] Influenza Virus 2022-05-29 Completed [facility] Vaccine Quad .5 mL 00:00:00 [facility] Influenza Virus 2022-05-29 Completed [facility] Vaccine 00:00:00 [facility] Influenza Virus 2022-05-29 Completed [facility] Vaccine Quad .5 mL 00:00:00 [facility] Influenza Virus 2022-05-29 Completed [facility] Vaccine 00:00:00 [facility] Influenza Virus 2022-05-29 Completed [facility] Vaccine Quad .5 mL 00:00:00 [facility] Influenza Virus 2022-05-29 Completed [facility] Vaccine 00:00:00 [facility] Influenza Virus 2022-05-29 Completed [facility] Vaccine Quad .5 mL 00:00:00 [facility] Influenza Virus 2022-05-29 Completed [facility] Vaccine 00:00:00 [facility] Influenza Virus 2022-05-29 Completed [facility] Vaccine Quad .5 mL 00:00:00 [facility] Influenza Virus 2022-05-29 Completed [facility] Vaccine 00:00:00 [facility] Influenza Virus 2022-05-29 Completed [facility] Vaccine Quad .5 mL 00:00:00 [facility] Influenza Virus 2022-05-29 Completed [facility] Vaccine 00:00:00 [facility] Influenza Virus 2022-05-29 Completed [facility] Vaccine Quad .5 mL 00:00:00 [facility] Influenza Virus 2022-05-29 Completed [facility] Vaccine 00:00:00 [facility] Influenza Virus 2022-05-29 Completed [facility] Vaccine Quad .5 mL 00:00:00 [facility] Influenza Virus 2022-05-29 Completed [facility] Vaccine 00:00:00 [facility] Influenza Virus 2022-05-29 Completed [facility] Vaccine Quad .5 mL 00:00:00 [facility] Influenza Virus 2022-05-29 Completed [facility] Vaccine 00:00:00 [facility] Influenza Virus 2022-05-29 Completed [facility] Vaccine Quad .5 mL 00:00:00 [facility] Influenza Virus 2022-05-29 Completed [facility] Vaccine 00:00:00 [facility] Influenza Virus 2022-05-29 Completed [facility] Vaccine Quad .5 mL 00:00:00 [facility] Influenza Virus 2022-05-29 Completed [facility] Vaccine 00:00:00 [facility] Influenza Virus 2022-05-29 Completed [facility] Vaccine Quad .5 mL 00:00:00 [facility] Influenza Virus 2022-05-29 Completed [facility] Vaccine 00:00:00 [facility] Influenza Virus 2022-05-29 Completed [facility] Vaccine Quad .5 mL 00:00:00 [facility] Influenza Virus 2022-05-29 Completed [facility] Vaccine 00:00:00 [facility] Influenza Virus 2022-05-29 Completed [facility] Vaccine Quad .5 mL 00:00:00 [facility] Influenza Virus 2022-05-29 Completed [facility] Vaccine 00:00:00 [facility] Influenza Virus 2022-05-29 Completed [facility] Vaccine Quad .5 mL 00:00:00 [facility] Influenza Virus 2022-05-29 Completed [facility] Vaccine 00:00:00 [facility] Influenza Virus 2022-05-29 Completed [facility] Vaccine Quad .5 mL 00:00:00 [facility] Influenza Virus 2022-05-29 Completed [facility] Vaccine 00:00:00 [facility] Influenza Virus 2022-05-29 Completed [facility] Vaccine Quad .5 mL 00:00:00 [facility] Influenza Virus 2022-05-29 Completed [facility] Vaccine 00:00:00 [facility] Influenza Virus 2022-05-29 Completed [facility] Vaccine Quad .5 mL 00:00:00 [facility] Influenza Virus 2022-05-29 Completed [facility] Vaccine 00:00:00 [facility] Influenza Virus 2022-05-29 Completed [facility] Vaccine Quad .5 mL 00:00:00 [facility] Influenza Virus 2022-05-29 Completed [facility] Vaccine 00:00:00 [facility] Influenza Virus 2022-05-29 Completed [facility] Vaccine Quad .5 mL 00:00:00 [facility] Influenza Virus 2022-05-29 Completed [facility] Vaccine 00:00:00 [facility] Influenza Virus 2022-05-29 Completed [facility] Vaccine Quad .5 mL 00:00:00 [facility] Influenza Virus 2022-05-29 Completed [facility] Vaccine 00:00:00 [facility] Influenza Virus 2022-05-29 Completed [facility] Vaccine Quad .5 mL 00:00:00 [facility] Influenza Virus 2022-05-29 Completed [facility] Vaccine 00:00:00 [facility] Influenza Virus 2022-05-29 Completed [facility] Vaccine Quad .5 mL 00:00:00 [facility] Influenza Virus 2022-05-29 Completed [facility] Vaccine 00:00:00 [facility] Influenza Virus 2022-05-29 Completed [facility] Vaccine Quad .5 mL 00:00:00 [facility] Influenza Virus 2022-05-29 Completed [facility] Vaccine 00:00:00 [facility] Influenza Virus 2022-05-29 Completed [facility] Vaccine Quad .5 mL 00:00:00 [facility] 6[facility] Influenza Virus 2022-05-29 Completed [facility] Vaccine 00:00:00 [facility] Influenza Virus 2022-05-29 Completed [facility] Vaccine Quad .5 mL 00:00:00 [facility] Influenza Virus 2022-05-29 Completed [facility] Vaccine 00:00:00 [facility] Influenza Virus 2022-05-29 Completed [facility] Vaccine Quad .5 mL 00:00:00 [facility] Influenza Virus 2022-05-29 Completed [facility] Vaccine 00:00:00 [facility] Influenza Virus 2022-05-29 Completed [facility] Vaccine Quad .5 mL 00:00:00 [facility] Influenza Virus 2022-05-29 Completed [facility] Vaccine 00:00:00 [facility] Influenza Virus 2022-05-29 Completed [facility] Vaccine Quad .5 mL 00:00:00 [facility] Influenza Virus 2022-05-29 Completed [facility] Vaccine 00:00:00 [facility] Influenza Virus 2022-05-29 Completed [facility]ine Quad .5 mL 00:00:00 [facility] (FLUZONE/FLULAVAL/F LUARIX) Influenza Virus 2022-05-29 Completed [facility] 00:00:00 [facility] Influenza Virus 2022-05-29 Completed [facility]ine Quad .5 mL 00:00:00 [facility] (FLUZONE/FLULAVAL/F LUARIX) Influenza Virus 2022-05-29 Completed [facility]ine 00:00:00 [facility] Influenza Virus 2022-05-29 Completed [facility] Quad .5 mL 00:00:00 [facility] (FLUZONE/FLULAVAL/F LUARIX) Influenza Virus 2021-07-01 Completed [facility] Quad .5 mL 00:00:00 [facility] Influenza Virus 2021-07-01 Completed [facility]ine Quad .5 mL 00:00:00 [facility] Influenza Virus 2021-07-01 Completed [facility]ine Quad .5 mL 00:00:00 [facility] [facility] Influenza Virus 2021-07-01 Completed [facility] .5 mL 00:00:00 [facility] 6[facility] Influenza Virus 2021-07-01 Completed [facility] .5 mL 00:00:00 [facility] Influenza Virus 2021-07-01 Completed [facility] .5 mL 00:00:00 [facility] 6[facility] Influenza Virus 2021-07-01 Completed [facility] .5 mL 00:00:00 [facility] 6[facility] MO [facility] Influenza Virus 2021-07-01 Completed [facility] .5 mL 00:00:00 [facility] 6+ MO [facility] Influenza Virus 2021-07-01 Completed [facility] .5 mL 00:00:00 [facility] 6[facility] MO [facility] Influenza Virus 2021-07-01 Completed [facility] .5 mL 00:00:00 [facility] 6[facility] Influenza Virus 2021-07-01 Completed [facility] .5 mL 00:00:00 [facility] 6[facility] MO [facility] Influenza Virus 2021-07-01 Completed [facility] .5 mL 00:00:00 [facility] 6[facility] MO [facility] Influenza Virus 2021-07-01 Completed [facility] .5 mL 00:00:00 [facility] 6[facility] MO [facility] Influenza Virus 2021-07-01 Completed [facility] .5 mL 00:00:00 [facility] 6[facility] MO [facility] Influenza Virus [...] 00:00:00 [facility] 6[facility] (FLUZONE/FLULAVAL/F LUARIX) Influenza Virus 2021-07-01 Completed [facility] .5 mL 00:00:00 [facility] 6[facility] (FLUZONE/FLULAVAL/F LUARIX) Influenza Virus 2021-07-01 Completed [facility] .5 mL 00:00:00 [facility] 6[facility] (FLUZONE/FLULAVAL/F LUARIX) Influenza Virus 2021-07-01 Completed [facility] [...] y [facility] Vaccine [facility] .5 mL 00:00:00 [facility] 6[facility] MO [facility] Influenza Virus 2021-07-01 Completed [facility] .5 mL 00:00:00 [facility] 6[facility] MO [facility] Pneumococcal 2020-07-13 Completed [facility] Polysaccharide, 00:[facility]00 [facility] PPSV23 (PNEUMOVAX) [facility] Pneumococcal 2020-07-13 Completed [facility] Polysaccharide, 00:00:00 [facility] PPSV23 (PNEUMOVAX) [place] Pneumococcal 2020-07-13 Completed [facility] Polysaccharide, 00:00:00 [facility] PPSV23 (PNEUMOVAX) [facility] Pneumococcal 2020-07-13 [...] y [facility] Vaccine Quad .5 mL 00:00:00 [facility] 6[facility] MO [facility] Influenza Virus 2020-05-13 Completed [facility] .5 mL 00:00:00 [facility] 6[facility] MO [facility] Influenza Virus 2020-05-13 Completed [facility] .5 mL 00:00:00 [facility] 6+ MO [facility] Influenza Virus 2020-05-13 Completed [facility] Vacc[facility] .5 mL 00:00:00 [facility] 6[facility] MO [facility] Influenza Virus 2020-05-13 Completed [facility] .5 mL 00:00:00 [facility] 6[facility] MO [facility] Influenza Virus 2020-05-13 Completed [facility] .5 mL 00:00:00 [facility] 6[facility] MO [facility] Influenza Virus 2020-05-13 Completed [facility] .5 mL 00:00:00 [facility] 6[facility] MO [facility] Influenza Virus 2020-05-13 Completed [facility] .5 mL 00:00:00 [facility] 6[facility] MO [facility] Influenza Virus 2020-05-13 Completed [facility] .5 mL 00:00:00 [facility] 6+ MO Branch Influenza Virus [...] y of Vaccine Quad .5 mL 00:00:00 [facility] 6+ MO [facility] (FLUZONE/FLULAVAL/F LUARIX) Influenza Virus 2020-05-13 Completed [facility] .5 mL 00:00:00 [facility] 6+ MO [facility] (FLUZONE/FLULAVAL/F LUARIX) Influenza Virus 2020-05-13 Completed [facility] .5 mL 00:00:00 [facility] 6[facility] MO [facility] (FLUZONE/FLULAVAL/F LUARIX) Influenza Virus 2020-05-13 Completed [facility] [...] y of Vaccine Quad IM 3+ 00:00:00 [facility] Influenza Virus 2017-05-29 Completed [facility] Vaccine [facility] IM 3+ 00:00:00 [facility] Influenza Virus 2017-05-29 Completed [facility] IM 3+ 00:00:00 [facility] Influenza Virus 2017-05-29 Completed [facility] IM 3+ 00:00:00 [facility] Influenza Virus 2017-05-29 Completed [facility] IM 3+ 00:00:00 [facility] Influenza Virus 2017-05-29 Completed [facility] IM 3+ 00:00:00 [facility] Influenza Virus 2017-05-29 Completed [facility] IM 3+ 00:00:00 [facility] Influenza Virus 2017-05-29 Completed [facility] IM 3+ 00:00:00 [facility] Influenza Virus 2017-05-29 Completed [facility] IM 3+ 00:00:00 [facility] Influenza Virus 2017-05-29 Completed [facility] Vacc[facility] IM 3+ 00:00:00 [facility] Influenza Virus 2017-05-29 Completed [facility] IM 3+ 00:00:00 [facility] Influenza Virus 2017-05-29 Completed [facility] IM 3+ 00:00:00 [facility] Influenza Virus 2017-05-29 Completed [facility] IM 3+ 00:00:00 [facility] Influenza Virus 2017-05-29 Completed [facility] IM 3+ 00:00:00 [facility] Influenza Virus 2017-05-29 Completed [facility] IM 3+ 00:00:00 [facility] Influenza Virus 2017-05-29 Completed [facility] IM 3+ 00:00:00 [facility] Influenza Virus 2017-05-29 Completed [facility] IM 3+ 00:00:00 [facility] Influenza Virus 2017-05-29 Completed [facility] IM 3+ 00:00:00 [facility] Influenza Virus 2017-05-29 Completed [facility] IM 3+ 00:00:00 [facility] Influenza Virus 2017-05-29 Completed [facility] IM 3+ 00:00:00 [facility] Influenza Virus 2017-05-29 Completed [facility] IM 3+ 00:00:00 [facility] Influenza Virus 2017-05-29 Completed [facility] Vacc[facility] IM 3+ 00:00:00 [facility] Influenza Virus 2017-05-29 Completed [facility] IM 3+ 00:00:00 [facility] Influenza Virus 2017-05-29 Completed [facility] IM 3+ 00:00:00 [facility] Influenza Virus 2017-05-29 Completed [facility] IM 3+ 00:00:00 [facility] Influenza Virus 2017-05-29 Completed [facility] IM 3+ 00:00:00 [facility] Influenza Virus 2017-05-29 Completed [facility] Vaccine [facility] IM 3+ 00:00:00 [facility] Influenza Virus 2017-05-29 Completed [facility] Vacc[facility] IM 3+ 00:00:00 [facility] Influenza Virus 2017-05-29 Completed [facility] IM 3+ 00:00:00 [facility] Influenza Virus 2017-05-29 Completed [facility] IM 3+ 00:00:00 [facility] Influenza Virus 2017-05-29 Completed [facility] Vacc[facility] IM 3+ 00:00:00 [facility] Influenza Virus 2017-05-29 Completed [facility] IM 3+ 00:00:00 [facility] Influenza Virus 2017-05-29 Completed [facility] Vaccine [facility] IM 3+ 00:00:00 [facility] Influenza Virus 2017-05-29 Completed [facility] Vacc[facility] IM 3+ 00:00:00 [facility] Influenza Virus 2017-05-29 Completed [facility] Vaccine [facility] IM 3+ 00:00:00 [facility] Influenza Virus 2017-05-29 Completed [facility] Vaccine [facility] IM 3+ 00:00:00 [facility] Influenza Virus 2017-05-29 Completed [facility] Vaccine [facility] IM 3+ 00:00:00 [facility] Influenza Virus 2017-05-29 Completed [facility] Vacc[facility] IM 3+ 00:00:00 [facility] Influenza Virus 2017-05-29 Completed [facility] Vaccine [facility] IM 3+ 00:00:00 [facility] Influenza Virus 2017-05-29 Completed [facility] Vaccine [facility] IM 3+ 00:00:00 [facility] Influenza Virus 2017-05-29 Completed [facility] Vacc[facility] IM 3+ 00:00:00 [facility] Influenza Virus 2017-05-29 Completed [facility] IM 3+ 00:00:00 [facility] Influenza Virus 2017-05-29 Completed [facility] IM 3+ 00:00:00 [facility] Influenza Virus 2017-05-29 Completed [facility] Vacc[facility] IM 3+ 00:00:00 [facility] Influenza Virus 2017-05-29 Completed [facility] Vacc[facility] IM 3+ 00:00:00 [facility] Influenza Virus 2017-05-29 Completed [facility] Vacc[facility] IM 3+ 00:00:00 [facility] Influenza Virus 2017-05-29 Completed [facility] IM 3+ 00:00:00 [facility] Influenza Virus 2017-05-29 Completed [facility] Vacc[facility] IM 3+ 00:00:00 [facility] Influenza Virus 2017-05-29 Completed [facility] Vaccine [facility] IM 3+ 00:00:00 [facility] Influenza Virus 2017-05-29 Completed [facility] Vacc[facility] IM 3+ 00:00:00 [facility] Influenza Virus 2017-05-29 Completed [facility] Vacc[facility] IM 3+ 00:00:00 [facility] Influenza Virus 2017-05-29 Completed [facility] Vacc[facility] IM 3+ 00:00:00 [facility] Influenza Virus 2017-05-29 Completed [facility] Vaccine [facility] IM 3+ 00:00:00 [facility] Influenza Virus 2017-05-29 Completed [facility] Vacc[facility] IM 3+ 00:00:00 [facility] Influenza Virus 2017-05-29 Completed [facility] Vaccine [facility] IM 3+ 00:00:00 [facility] Influenza Virus 2017-05-29 Completed [facility] Vaccine [facility] IM 3+ 00:00:00 [facility] Influenza Virus 2017-05-29 Completed [facility] Vaccine [facility] IM 3+ 00:00:00 [facility] Influenza Virus 2017-05-29 Completed [facility] Vacc[facility] IM 3+ 00:00:00 [facility] Influenza Virus 2017-05-29 Completed [facility] Vaccine [facility] IM 3+ 00:00:00 [facility] Influenza Virus 2017-05-29 Completed [facility] Vaccine [facility] IM 3+ 00:00:00 [facility] Influenza Virus 2017-05-29 Completed [facility] Vaccine [facility] IM 3+ 00:00:00 [facility] Influenza Virus 2017-05-29 Completed [facility] Vaccine [facility] IM 3+ 00:00:00 [facility] Influenza Virus 2017-05-29 Completed [facility] Vaccine [facility] IM 3+ 00:00:00 [facility] Influenza Virus 2017-05-29 Completed [facility] Vaccine [facility] IM 3+ 00:00:00 [facility] Influenza Virus 2017-05-29 Completed [facility] Vaccine [facility] IM 3+ 00:00:00 [facility] Influenza Virus 2017-05-29 Completed [facility] Vaccine [facility] IM 3+ 00:00:00 [facility] Influenza Virus 2017-05-29 Completed [facility] Vaccine [facility] IM 3+ 00:00:00 [facility] Influenza Virus 2017-05-29 Completed [facility] Vaccine [facility] IM 3+ 00:00:00 [facility] Influenza Virus 2017-05-29 Completed [facility] Vaccine [facility] IM 3+ 00:00:00 [facility] Influenza Virus 2017-05-29 Completed [facility] Vaccine [facility] IM 3+ 00:00:00 [facility] Influenza Virus 2017-05-29 Completed [facility] Vaccine [facility] IM 3+ 00:00:00 [facility] Influenza Virus 2017-05-29 Completed [facility] Vaccine [facility] IM 3+ 00:00:00 [facility] Influenza Virus 2017-05-29 Completed [facility] Vaccine [facility] IM 3+ 00:00:00 [facility] Influenza Virus 2017-05-29 Completed [facility] Vaccine [facility] IM 3+ 00:00:00 [facility] Influenza Virus 2017-05-29 Completed [facility] Vaccine [facility] IM 3+ 00:00:00 [facility] Influenza Virus 2017-05-29 Completed [facility] Vaccine [facility] IM 3+ 00:00:00 [facility] Influenza Virus 2017-05-29 Completed [facility] Vaccine [facility] IM 3+ 00:00:00 [facility] Influenza Virus 2017-05-29 Completed [facility] Vaccine [facility] IM 3+ 00:00:00 [facility] Influenza Virus 2017-05-29 Completed [facility] Vaccine [facility] IM 3+ 00:00:00 [facility] Influenza Virus 2017-05-29 Completed [facility] Vaccine [facility] IM 3+ 00:00:00 [facility] Influenza Virus 2017-05-29 Completed [facility] Vaccine [facility] IM 3+ 00:00:00 [facility] Influenza Virus 2017-05-29 Completed [facility] Vaccine [facility] IM 3+ 00:00:00 [facility] Influenza Virus 2017-05-29 Completed [facility] Vaccine [facility] IM 3+ 00:00:00 [facility] Influenza Virus 2017-05-29 Completed [facility] Vaccine [facility] IM 3+ 00:00:00 [facility] Influenza Virus 2017-05-29 Completed [facility] Vaccine [facility] IM 3+ 00:00:00 [facility] Influenza Virus 2017-05-29 Completed [facility] Vaccine [facility] IM 3+ 00:00:00 [facility] Influenza Virus 2017-05-29 Completed [facility] Vaccine [facility] IM 3+ 00:00:00 [facility] Influenza Virus 2017-05-29 Completed [facility] Vaccine [facility] IM 3+ 00:00:00 [facility] Influenza Virus 2017-05-29 Completed [facility] Vaccine [facility] IM 3+ 00:00:00 [facility] Influenza Virus 2017-05-29 Completed [facility] Vaccine [facility] IM 3+ 00:00:00 [facility] Influenza Virus 2017-05-29 Completed [facility] Vaccine [facility] IM 3+ 00:00:00 [facility] Influenza Virus 2017-05-29 Completed [facility] Vaccine [facility] IM 3+ 00:00:00 [facility] Influenza Virus 2017-05-29 Completed [facility] Vaccine [facility] IM 3+ 00:00:00 [facility] Influenza Virus 2017-05-29 Completed [facility] Vaccine [facility] IM 3+ 00:00:00 [facility] Influenza Virus 2017-05-29 Completed [facility] Vaccine [facility] IM 3+ 00:00:00 [facility] Influenza Virus 2017-05-29 Completed [facility] Vaccine [facility] IM 3+ 00:00:00 [facility] Influenza Virus 2017-05-29 Completed [facility] Vaccine [facility] IM 3+ 00:00:00 [facility] Influenza Virus 2017-05-29 Completed [facility] Vaccine [facility] IM 3+ 00:00:00 [facility] Influenza Virus 2017-05-29 Completed [facility] Vaccine [facility] IM 3+ 00:00:00 [facility] Influenza Virus 2017-05-29 Completed [facility] Vaccine [facility] IM 3+ 00:00:00 [facility] Influenza Virus 2017-05-29 Completed [facility] Vaccine [facility] IM 3+ 00:00:00 [facility] Influenza Virus 2017-05-29 Completed [facility] Vaccine [facility] IM 3+ 00:00:00 [facility] Influenza Virus 2017-05-29 Completed [facility] Vaccine [facility] IM 3+ 00:00:00 [facility] Influenza Virus 2017-05-29 Completed [facility] Vaccine [facility] IM 3+ 00:00:00 [facility] Influenza Virus 2017-05-29 Completed [facility] Vaccine [facility] IM 3+ 00:00:00 [facility] Influenza Virus 2017-05-29 Completed [facility] Vaccine [facility] IM 3+ 00:00:00 [facility] Influenza Virus 2017-05-29 Completed [facility] Vaccine [facility] IM 3+ 00:00:00 [facility] Influenza Virus 2017-05-29 Completed [facility] Vaccine Quad IM 3+ 00:00:00 [facility] Influenza Virus 2017-05-29 Completed [facility] Vaccine Quad IM 3+ 00:00:00 [facility] Influenza Virus 2017-05-29 Completed [facility] Vaccine Quad IM 3+ 00:00:00 [facility] Influenza Virus 2017-05-29 Completed [facility] Vaccine Quad IM 3+ 00:00:00 [facility] Influenza Virus 2017-05-29 Completed [facility] Vaccine [facility] IM 3+ 00:00:00 [facility] Influenza Virus 2017-05-29 Completed [facility] Vaccine Quad IM 3+ 00:00:00 [facility] Influenza Virus 2017-05-29 Completed [facility] Vaccine [facility] IM 3+ 00:00:00 [facility] Influenza Virus 2017-05-29 Completed [facility] Vaccine Quad IM 3+ 00:00:00 [facility] Influenza Virus 2017-05-29 Completed [facility] Vaccine Quad IM 3+ 00:00:00 [facility] Influenza Virus 2017-05-29 Completed [facility] Vaccine Quad IM 3+ 00:00:00 [facility] Influenza Virus 2017-05-29 Completed [facility] Vaccine Quad IM 3+ 00:00:00 [facility] Influenza Virus 2017-05-29 Completed [facility] Vaccine Quad IM 3+ 00:00:00 [facility] Influenza Virus 2017-05-29 Completed [facility] Vaccine Quad IM 3+ 00:00:00 [facility] Influenza Virus 2017-05-29 Completed [facility] Vaccine Quad IM 3+ 00:00:00 [facility] Influenza Virus 2017-05-29 Completed [facility] Vaccine [facility] IM 3+ 00:00:00 [facility] Influenza Virus 2017-05-29 Completed [facility] Vaccine Quad IM 3+ 00:00:00 [facility] Influenza Virus 2017-05-29 Completed [facility] Vaccine Quad IM 3+ 00:00:00 [facility] Influenza Virus 2017-05-29 Completed [facility] Vaccine Quad IM 3+ 00:00:00 [facility] Influenza Virus 2017-05-29 Completed [facility] Vaccine Quad IM 3+ 00:00:00 [facility] Influenza Virus 2017-05-29 Completed [facility] Vaccine Quad IM 3+ 00:00:00 [facility] Influenza Virus 2017-05-29 Completed [facility] Vaccine Quad IM 3+ 00:00:00 [facility] Influenza Virus 2017-05-29 Completed [facility] Vaccine Quad IM 3+ 00:00:00 [facility] Influenza Virus 2017-05-29 Completed [facility] Vaccine [facility] IM 3+ 00:00:00 [facility] Influenza Virus 2017-05-29 Completed [facility] Vaccine [facility] IM 3+ 00:00:00 [facility] Influenza Virus 2017-05-29 Completed [facility] Vaccine [facility] IM 3+ 00:00:00 [facility] Influenza Virus 2017-05-29 Completed [facility] Vaccine Quad IM 3+ 00:00:00 [facility] Influenza Virus 2017-05-29 Completed [facility] Vaccine Quad IM 3+ 00:00:00 [facility] Influenza Virus 2017-05-29 Completed [facility] Vaccine [facility] IM 3+ 00:00:00 [facility] Influenza Virus 2017-05-29 Completed [facility] Vacc[facility] IM 3+ 00:00:00 [facility] Influenza Virus 2017-05-29 Completed [facility] Vaccine [facility] IM 3+ 00:00:00 [facility] Influenza Virus 2017-05-29 Completed [facility] Vaccine [facility] IM 3+ 00:00:00 [facility] Influenza Virus 2017-05-29 Completed [facility] Vaccine [facility] IM 3+ 00:00:00 [facility] Influenza Virus 2017-05-29 Completed [facility] Vaccine [facility] IM 3+ 00:00:00 [facility] Influenza Virus 2017-05-29 Completed [facility] Vaccine [facility] IM 3+ 00:00:00 [facility] Influenza Virus 2017-05-29 Completed [facility] Vaccine [facility] IM 3+ 00:00:00 [facility] Influenza Virus 2017-05-29 Completed [facility] Vaccine [facility] IM 3+ 00:00:00 [facility] Influenza Virus 2017-05-29 Completed [facility] Vaccine [facility] IM 3+ 00:00:00 [facility] Influenza Virus 2017-05-29 Completed [facility] Vaccine [facility] IM 3+ 00:00:00 [facility] Influenza Virus 2017-05-29 Completed [facility] Vaccine [facility] IM 3+ 00:00:00 [facility] Influenza Virus 2017-05-29 Completed [facility] Vacc[facility] IM 3+ 00:00:00 [facility] Influenza Virus 2017-05-29 Completed [facility] Vacc[facility] IM 3+ 00:00:00 [facility] Influenza Virus 2017-05-29 Completed [facility] Vaccine [facility] IM 3+ 00:00:00 [facility] Influenza Virus 2017-05-29 Completed [facility] Vaccine [facility] IM 3+ 00:00:00 [facility] Influenza Virus 2017-05-29 Completed [facility] Vaccine [facility] IM 3+ 00:00:00 [facility] Influenza Virus 2017-05-29 Completed [facility] Vaccine [facility] IM 3+ 00:00:00 [facility] Influenza Virus 2017-05-29 Completed [facility] Vaccine [facility] IM 3+ 00:00:00 [facility] Influenza Virus 2017-05-29 Completed [facility] Vacc[facility] IM 3+ 00:00:00 [facility] Influenza Virus 2017-05-29 Completed [facility] Vacc[facility] IM 3+ 00:00:00 [facility] Influenza Virus 2017-05-29 Completed [facility] IM 3+ 00:00:00 [facility] Influenza Virus 2017-05-29 Completed [facility] Vacc[facility] IM 3+ 00:00:00 [facility] Influenza Virus 2017-05-29 Completed [facility] Vacc[facility] IM 3+ 00:00:00 [facility] Influenza Virus 2017-05-29 Completed [facility] IM 3+ 00:00:00 [facility] Influenza Virus 2017-05-29 Completed [facility] IM 3+ 00:00:00 [facility] Influenza Virus 2017-05-29 Completed [facility] IM 3+ 00:00:00 [facility] Influenza Virus 2017-05-29 Completed [facility] IM 3+ 00:00:00 [facility] Influenza Virus 2017-05-29 Completed [facility] IM 3+ 00:00:00 [facility] Influenza Virus 2017-05-29 Completed [facility] IM 3+ 00:00:00 [facility] Influenza Virus 2017-05-29 Completed [facility] IM 3+ 00:00:00 [facility] Influenza Virus 2017-05-29 Completed [facility] Vacc[facility] IM 3+ 00:00:00 [facility] Influenza Virus 2017-05-29 Completed [facility] IM 3+ 00:00:00 [facility] Influenza Virus 2017-05-29 Completed [facility] IM 3+ 00:00:00 [facility] Influenza Virus 2017-05-29 Completed [facility] Vacc[facility] IM 3+ 00:00:00 [facility] Influenza Virus 2017-05-29 Completed [facility] Vacc[facility] IM 3+ 00:00:00 [facility] Influenza Virus 2017-05-29 Completed [facility] IM 3+ 00:00:00 [facility] Influenza Virus 2017-05-29 Completed [facility] IM 3+ 00:00:00 [facility] Influenza Virus 2017-05-29 Completed [facility] IM 3+ 00:00:00 [facility] Influenza Virus 2017-05-29 Completed [facility] IM 3+ 00:00:00 [facility] Influenza Virus 2017-05-29 Completed [facility] IM 3+ 00:00:00 [facility] Influenza Virus 2017-05-29 Completed [facility] IM 3+ 00:00:00 [facility] Influenza Virus 2017-05-29 Completed [facility] IM 3+ 00:00:00 [facility] Influenza Virus 2017-05-29 Completed [facility] IM 3+ 00:00:00 [facility] Influenza Virus 2017-05-29 Completed [facility] IM 3+ 00:00:00 [facility] Influenza Virus 2017-05-29 Completed [facility] IM 3+ 00:00:00 [facility] Influenza Virus 2017-05-29 Completed [facility] IM 3+ 00:00:00 [facility] Influenza Virus 2017-05-29 Completed [facility] IM 3+ 00:00:00 [facility] Influenza Virus 2017-05-29 Completed [facility] IM 3+ 00:00:00 [facility] Influenza Virus 2017-05-29 Completed [facility] IM 3+ 00:00:00 [facility] Influenza Virus 2017-05-29 Completed [facility] IM 3+ [facility] [facility] 2017-05-29 Completed [facility] 3+ 00[facility]00:00 [facility] Influenza Virus 2017-05-29 Completed [facility] 3+ 00:00:00 [facility] Influenza Virus 2017-05-29 Completed [facility]ine [facility] IM 3+ 00:00:00 [facility] Influenza Virus 2017-05-29 Completed [facility]ine [facility] IM 3+ 00:00:00 [facility] Influenza Virus 2017-05-29 Completed [facility]ine [facility] 3+ 00:00:00 [facility] Influenza Virus 2017-05-29 Completed [facility]ine [facility] IM 3+ 00:00:00 [facility] Influenza Virus 2017-05-29 Completed [facility] Vaccine [facility] IM 3+ 00:00:00 [facility] Influenza Virus 2017-05-29 Completed [facility] Vaccine [facility] IM 3+ 00:00:00 [facility] Influenza Virus 2017-05-29 Completed [facility] Vaccine [facility] IM 3+ 00:00:00 [facility] MMR 2017-04-29 Completed [facility] 00:00:00 [facility] MMR 2017-04-29 Completed [facility] 00:00:00 [facility] MMR 2017-04-29 Completed [facility] 00:00:00 [facility] 2017-04-29 Completed [facility] 00:00:00 [facility] 2017-04-29 Completed [facility] 00:00:00 [facility] 2017-04-29 Completed [facility] 00[facility]00:00 [facility] 2017-04-29 Completed [facility] 00:00:00 [facility] 2017-04-29 Completed [facility] 00:00:00 [facility] 2017-04-29 Completed [facility] 00:00:00 [facility] 2017-04-29 Completed [facility] 00:00:00 [facility] 2017-04-29 Completed [facility] 00:00:00 [facility] 2017-04-29 Completed [facility] 00:00:00 [facility] 2017-04-29 Completed [facility] 00:00:00 [facility] 2017-04-29 Completed [facility] 00:00:00 [facility] 2017-04-29 Completed [facility] 00:00:00 [facility] 2017-04-29 Completed [facility] 00:00:00 [facility] 2017-04-29 Completed [facility] 00:00:00 [facility] 2017-04-29 Completed [facility] 00:00:00 [facility] 2017-04-29 Completed [facility] 00:00:00 [facility] 2017-04-29 Completed [facility] 00:00:00 [facility] 2017-04-29 Completed [facility] 00:00:00 [facility] 2017-04-29 Completed [facility] 00:00:00 [facility] 2017-04-29 Completed [facility] 00:00:00 [facility] 2017-04-29 Completed [facility] 00:00:00 [facility] 2017-04-29 Completed [facility] 00:00:00 [facility] 2017-04-29 Completed [facility] 00:00:00 [facility] 2017-04-29 Completed [facility] 00:00:00 [facility] 2017-04-29 Completed [facility] 00:00:00 [facility] 2017-04-29 Completed [facility] 00:00:00 [facility] 2017-04-29 Completed [facility] 00:00:00 [facility] 2017-04-29 Completed [facility] 00:00:00 [facility] 2017-04-29 Completed [facility] 00:00:00 [facility] 2017-04-29 Completed [facility] 00:00:00 [facility] 2017-04-29 Completed [facility] 00:00:00 [facility] 2017-04-29 Completed [facility] 00:00:00 [facility] 2017-04-29 Completed [facility] 00:00:00 [facility] 2017-04-29 Completed [facility] 00:00:00 [facility] 2017-04-29 Completed [facility] 00:00:00 [facility] 2017-04-29 Completed [facility] 00:00:00 [facility] 2017-04-29 Completed [facility] 00:00:00 [facility] 2017-04-29 Completed [facility] 00:00:00 [facility] 2017-04-29 Completed [facility] 00:00:00 [facility] 2017-04-29 Completed [facility] 00:00:00 [facility] 2017-04-29 Completed [facility] 00:00:00 [facility] 2017-04-29 Completed [facility] 00:00:00 [facility] 2017-04-29 Completed [facility] 00:00:00 [facility] 2017-04-29 Completed [facility] 00:00:00 [facility] 2017-04-29 Completed [facility] 00:00:00 [facility] 2017-04-29 Completed [facility] 00:00:00 [facility] 2017-04-29 Completed [facility] 00:00:00 [facility] 2017-04-29 Completed [facility] 00:00:00 [facility] 2017-04-29 Completed [facility] 00:00:00 [facility] 2017-04-29 Completed [facility] 00:00:00 [facility] 2017-04-29 Completed [facility] 00:00:00 [facility] 2017-04-29 Completed [facility] 00:00:00 [facility] 2017-04-29 Completed [facility] 00:00:00 [facility] 2017-04-29 Completed [facility] 00:00:00 [facility] 2017-04-29 Completed [facility] 00:00:00 [facility] 2017-04-29 Completed [facility] 00:00:00 [facility] 2017-04-29 Completed [facility] 00:00:00 [facility] 2017-04-29 Completed [facility] 00:00:00 [facility] 2017-04-29 Completed [facility] 00:00:00 [facility] 2017-04-29 Completed [facility] 00:00:00 [facility] 2017-04-29 Completed [facility] 00:00:00 [facility] 2017-04-29 Completed [facility] 00:00:00 [facility] 2017-04-29 Completed [facility] 00:00:00 [facility] 2017-04-29 Completed [facility] 00:00:00 [facility] 2017-04-29 Completed [facility] 00:00:00 [facility] 2017-04-29 Completed [facility] 00:00:00 [facility] 2017-04-29 Completed [facility] 00:00:00 [facility] 2017-04-29 Completed [facility] 00:00:00 [facility] 2017-04-29 Completed [facility] 00:00:00 [facility] 2017-04-29 Completed [facility] 00:00:00 [facility] 2017-04-29 Completed [facility] 00:00:00 [facility] 2017-04-29 Completed [facility] 00:00:00 [facility] 2017-04-29 Completed [facility] 00:00:00 [facility] 2017-04-29 Completed [facility] 00:00:00 [facility] 2017-04-29 Completed [facility] 00:00:00 [facility] 2017-04-29 Completed [facility] 00:00:00 [facility] 2017-04-29 Completed [facility] 00:00:00 [facility] 2017-04-29 Completed [facility] 00:00:00 [facility] 2017-04-29 Completed [facility] 00:00:00 [facility] 2017-04-29 Completed [facility] 00:00:00 [facility] 2017-04-29 Completed [facility] 00:00:00 [facility] 2017-04-29 Completed [facility] 00:00:00 [facility] 2017-04-29 Completed [facility] 00:00:00 [facility] 2017-04-29 Completed [facility] 00:00:00 [facility] 2017-04-29 Completed [facility] 00:00:00 [facility] 2017-04-29 Completed [facility] 00:00:00 [facility] 2017-04-29 Completed [facility] 00:00:00 [facility] 2017-04-29 Completed [facility] 00:00:00 [facility] 2017-04-29 Completed [facility] 00:00:00 [facility] 2017-04-29 Completed [facility] 00:00:00 [facility] 2017-04-29 Completed [facility] 00:00:00 [facility] 2017-04-29 Completed [facility] 00:00:00 [facility] 2017-04-29 Completed [facility] 00:00:00 [facility] 2017-04-29 Completed [facility] 00:00:00 [facility] 2017-04-29 Completed [facility] 00:00:00 [facility] 2017-04-29 Completed [facility] 00:00:00 [facility] 2017-04-29 Completed [facility] 00:00:00 [facility] 2017-04-29 Completed [facility] 00:00:00 [facility] 2017-04-29 Completed [facility] 00:00:00 [facility] 2017-04-29 Completed [facility] 00:00:00 [facility] 2017-04-29 Completed [facility] 00:00:00 [facility] 2017-04-29 Completed [facility] 00:00:00 [facility] 2017-04-29 Completed [facility] 00:00:00 [facility] 2017-04-29 Completed [facility] 00:00:00 [facility] 2017-04-29 Completed [facility] 00:00:00 [facility] 2017-04-29 Completed [facility] 00:00:00 [facility] 2017-04-29 Completed [facility] 00:00:00 [facility] 2017-04-29 Completed [facility] 00:00:00 [facility] 2017-04-29 Completed [facility] 00:00:00 [facility] 2017-04-29 Completed [facility] 00:00:00 [facility] 2017-04-29 Completed [facility] 00:00:00 [facility] 2017-04-29 Completed [facility] 00:00:00 [facility] 2017-04-29 Completed [facility] 00:00:00 [facility] 2017-04-29 Completed [facility] 00:00:00 [facility] 2017-04-29 Completed [facility] 00:00:00 [facility] 2017-04-29 Completed [facility] 00:00:00 [facility] 2017-04-29 Completed [facility] 00:00:00 [facility] 2017-04-29 Completed [facility] 00:00:00 [facility] 2017-04-29 Completed [facility] 00:00:00 [facility] 2017-04-29 Completed [facility] 00:00:00 [facility] 2017-04-29 Completed [facility] 00:00:00 [facility] 2017-04-29 Completed [facility] 00:00:00 [facility] 2017-04-29 Completed [facility] 00:00:00 [facility] 2017-04-29 Completed [facility] 00:00:00 [facility] 2017-04-29 Completed [facility] 00:00:00 [facility] 2017-04-29 Completed [facility] 00:00:00 [facility] 2017-04-29 Completed [facility] 00:00:00 [facility] 2017-04-29 Completed [facility] 00:00:00 [facility] 2017-04-29 Completed [facility] 00:00:00 [facility] 2017-04-29 Completed [facility] 00:00:00 [facility] 2017-04-29 Completed [facility] 00:00:00 [facility] 2017-04-29 Completed [facility] 00:00:00 [facility] 2017-04-29 Completed [facility] 00:00:00 [facility] 2017-04-29 Completed [facility] 00:00:00 [facility] 2017-04-29 Completed [facility] 00:00:00 [facility] 2017-04-29 Completed [facility] 00:00:00 [facility] 2017-04-29 Completed [facility] 00:00:00 [facility] 2017-04-29 Completed [facility] 00:00:00 [facility] 2017-04-29 Completed [facility] 00:00:00 [facility] 2017-04-29 Completed [facility] 00:00:00 [facility] 2017-04-29 Completed [facility] 00:00:00 [facility] 2017-04-29 Completed [facility] 00:00:00 [facility] 2017-04-29 Completed [facility] 00:00:00 [facility] 2017-04-29 Completed [facility] 00:00:00 [facility] 2017-04-29 Completed [facility] 00:00:00 [facility] 2017-04-29 Completed [facility] 00:00:00 [facility] 2017-04-29 Completed [facility] 00:00:00 [facility] 2017-04-29 Completed [facility] 00:00:00 [facility] 2017-04-29 Completed [facility] 00:00:00 [facility] 2017-04-29 Completed [facility] 00:00:00 [facility] 2017-04-29 Completed [facility] 00:00:00 [facility] 2017-04-29 Completed [facility] 00:00:00 [facility] 2017-04-29 Completed [facility] 00:00:00 [facility] 2017-04-29 Completed [facility] 00:00:00 [facility] 2017-04-29 Completed [facility] 00:00:00 [facility] 2017-04-29 Completed [facility] 00:00:00 [facility] 2017-04-29 Completed [facility] 00:00:00 [facility] 2017-04-29 Completed [facility] 00:00:00 [facility] 2017-04-29 Completed [facility] 00:00:00 [facility] 2017-04-29 Completed [facility] 00:00:00 [facility] 2017-04-29 Completed [facility] 00:00:00 [facility] 2017-04-29 Completed [facility] 00:00:00 [facility] 2017-04-29 Completed [facility] 00:00:00 [facility] 2017-04-29 Completed [facility] 00:00:00 [facility] 2017-04-29 Completed [facility] 00:00:00 [facility] 2017-04-29 Completed [facility] 00:00:00 [facility] 2017-04-29 Completed [facility] 00:00:00 [facility] 2017-04-29 Completed [facility] 00:00:00 [facility] 2017-04-29 Completed [facility] 00:00:00 [facility] 2017-04-29 Completed [facility] 00:00:00 [facility] 2017-04-29 Completed [facility] 00:00:00 [facility] 2017-04-29 Completed [facility] 00:00:00 [facility] 2017-04-29 Completed [facility] 00:00:00 [facility] 2017-04-29 Completed [facility] 00:00:00 [facility] 2017-04-29 Completed [facility] 00:00:00 [facility] 2017-04-29 Completed [facility] 00:00:00 [facility] 2017-04-29 Completed [facility] 00:00:00 [facility] MMR 2017-04-29 Completed [facility] 00:00:00 [facility] MMR 2017-04-29 Completed [facility] 00:00:00 [facility] MMR 2017-04-29 Completed [facility] 00:00:00 [facility] MMR 2017-04-29 Completed [facility] 00:00:00 [facility] MMR 2017-04-29 Completed [facility] 00:00:00 [facility] MMR 2017-04-29 Completed [facility] 00:00:00 [facility] MMR 2017-04-29 Completed [facility] 00:00:00 [facility] MMR 2017-04-29 Completed [facility] 00:00:00 [facility] MMR 2017-04-29 Completed [facility] 00:00:00 [facility] 2017-04-29 Completed [facility] 00:00:00 [facility] 2017-04-29 Completed [facility] 00:00:00 [facility] 2017-04-29 Completed [facility] 00:00:00 [facility] 2017-04-29 Completed [facility] 00:00:00 [facility] MMR 2017-04-29 Completed [facility] 00:00:00 [facility] TDAP 2017-02-28 Completed [facility] 00:00:00 [facility] TDAP 2017-02-28 Completed [facility] 00:00:00 [facility] TDAP 2017-02-28 Completed [facility] 00:00:00 [facility] TDAP 2017-02-28 Completed [facility] 00:00:00 [facility] TDAP 2017-02-28 Completed [facility] 00:00:00 [facility] TDAP 2017-02-28 Completed [facility] 00:00:00 [facility] TDAP 2017-02-28 Completed [facility] 00:00:00 [facility] TDAP 2017-02-28 Completed [facility] 00:00:00 [facility] TDAP 2017-02-28 Completed [facility] 00[facility]00:00 [facility] TDAP 2017-02-28 Completed [facility] 00:00:00 [facility] TDAP 2017-02-28 Completed [facility] 00:00:00 [facility] TDAP 2017-02-28 Completed [facility] 00[facility]00:00 [facility] TDAP 2017-02-28 Completed [facility] 00:00:00 [facility] TDAP 2017-02-28 Completed [facility] 00[facility]00:00 [facility] TDAP 2017-02-28 Completed [facility] 00:00:00 [facility] TDAP 2017-02-28 Completed [facility] 00:00:00 [facility] TDAP 2017-02-28 Completed [facility] 00:00:00 [facility] TDAP 2017-02-28 Completed [facility] 00:00:00 [facility] TDAP 2017-02-28 Completed [facility] 00:00:00 [facility] TDAP 2017-02-28 Completed [facility] 00:00:00 [facility] TDAP 2017-02-28 Completed [facility] 00:00:00 [facility] TDAP 2017-02-28 Completed [facility] 00:00:00 [facility] TDAP 2017-02-28 Completed [facility] 00:00:00 [facility] TDAP 2017-02-28 Completed [facility] 00:00:00 [facility] TDAP 2017-02-28 Completed [facility] 00:00:00 [facility] TDAP 2017-02-28 Completed [facility] 00:00:00 [facility] TDAP 2017-02-28 Completed [facility] 00:00:00 [facility] TDAP 2017-02-28 Completed [facility] 00:00:00 [facility] TDAP 2017-02-28 Completed [facility] 00:00:00 [facility] TDAP 2017-02-28 Completed [facility] 00:00:00 [facility] TDAP 2017-02-28 Completed [facility] 00[facility]00:00 [facility] TDAP 2017-02-28 Completed [facility] 00:00:00 [facility] TDAP 2017-02-28 Completed [facility] 00:00:00 [facility] TDAP 2017-02-28 Completed [facility] 00:00:00 [facility] TDAP 2017-02-28 Completed [facility] 00:00:00 [facility] TDAP 2017-02-28 Completed [facility] 00:00:00 [facility] TDAP 2017-02-28 Completed [facility] 00:00:00 [facility] TDAP 2017-02-28 Completed [facility] 00:00:00 [facility] TDAP 2017-02-28 Completed [facility] 00:00:00 [facility] TDAP 2017-02-28 Completed [facility] 00:00:00 [facility] TDAP 2017-02-28 Completed [facility] 00:00:00 [facility] TDAP 2017-02-28 Completed [facility] 00:00:00 [facility] TDAP 2017-02-28 Completed [facility] 00:00:00 [facility] TDAP 2017-02-28 Completed [facility] 00:00:00 [facility] TDAP 2017-02-28 Completed [facility] 00:00:00 [facility] TDAP 2017-02-28 Completed [facility] 00:00:00 [facility] TDAP 2017-02-28 Completed [facility] 00:00:00 [facility] TDAP 2017-02-28 Completed [facility] 00:00:00 [facility] TDAP 2017-02-28 Completed [facility] 00:00:00 [facility] TDAP 2017-02-28 Completed [facility] 00:00:00 [facility] TDAP 2017-02-28 Completed [facility] 00:00:00 [facility] TDAP 2017-02-28 Completed [facility] 00:00:00 [facility] TDAP 2017-02-28 Completed [facility] 00:00:00 [facility] TDAP 2017-02-28 Completed [facility] 00:00:00 [facility] TDAP 2017-02-28 Completed [facility] 00:00:00 [facility] TDAP 2017-02-28 Completed [facility] 00:00:00 [facility] TDAP 2017-02-28 Completed [facility] 00:00:00 [facility] TDAP 2017-02-28 Completed [facility] 00:00:00 [facility] TDAP 2017-02-28 Completed [facility] 00:00:00 [facility] TDAP 2017-02-28 Completed [facility] 00:00:00 [facility] TDAP 2017-02-28 Completed [facility] 00:00:00 [facility] TDAP 2017-02-28 Completed [facility] 00:00:00 [facility] TDAP 2017-02-28 Completed [facility] 00:00:00 [facility] TDAP 2017-02-28 Completed [facility] 00:00:00 [facility] TDAP 2017-02-28 Completed [facility] 00:00:00 [facility] TDAP 2017-02-28 Completed [facility] 00:00:00 [facility] TDAP 2017-02-28 Completed [facility] 00:00:00 [facility] TDAP 2017-02-28 Completed [facility] 00:00:00 [facility] TDAP 2017-02-28 Completed [facility] 00:00:00 [facility] TDAP 2017-02-28 Completed [facility] 00[facility]00:00 [facility] TDAP 2017-02-28 Completed [facility] 00:00:00 [facility] TDAP 2017-02-28 Completed [facility] 00:00:00 [facility] TDAP 2017-02-28 Completed [facility] 00:00:00 [facility] TDAP 2017-02-28 Completed [facility] 00:00:00 [facility] TDAP 2017-02-28 Completed [facility] 00:00:00 [facility] TDAP 2017-02-28 Completed [facility] 00:00:00 [facility] TDAP 2017-02-28 Completed [facility] 00:00:00 [facility] TDAP 2017-02-28 Completed [facility] 00:00:00 [facility] TDAP 2017-02-28 Completed [facility] 00:00:00 [facility] TDAP 2017-02-28 Completed [facility] 00:00:00 [facility] TDAP 2017-02-28 Completed [facility] 00:00:00 [facility] TDAP 2017-02-28 Completed [facility] 00:00:00 [facility] TDAP 2017-02-28 Completed [facility] 00:00:00 [facility] TDAP 2017-02-28 Completed [facility] 00:00:00 [facility] TDAP 2017-02-28 Completed [facility] 00:00:00 [facility] TDAP 2017-02-28 Completed [facility] 00:00:00 [facility] TDAP 2017-02-28 Completed [facility] 00:00:00 [facility] TDAP 2017-02-28 Completed [facility] 00:00:00 [facility] TDAP 2017-02-28 Completed [facility] 00:00:00 [facility] TDAP 2017-02-28 Completed [facility] 00:00:00 [facility] TDAP 2017-02-28 Completed [facility] 00:00:00 [facility] TDAP 2017-02-28 Completed [facility] 00:00:00 [facility] TDAP 2017-02-28 Completed [facility] 00:00:00 [facility] TDAP 2017-02-28 Completed [facility] 00:00:00 [facility] TDAP 2017-02-28 Completed [facility] 00[facility]00:00 [facility] TDAP 2017-02-28 Completed [facility] 00:00:00 [facility] TDAP 2017-02-28 Completed [facility] 00:00:00 [facility] TDAP 2017-02-28 Completed [facility] 00:00:00 [facility] TDAP 2017-02-28 Completed [facility] 00:00:00 [facility] TDAP 2017-02-28 Completed [facility] 00:00:00 [facility] TDAP 2017-02-28 Completed [facility] 00:00:00 [facility] TDAP 2017-02-28 Completed [facility] 00[facility]00:00 [facility] TDAP 2017-02-28 Completed [facility] 00:00:00 [facility] TDAP 2017-02-28 Completed [facility] 00:00:00 [facility] TDAP 2017-02-28 Completed [facility] 00:00:00 [facility] TDAP 2017-02-28 Completed [facility] 00:00:00 [facility] TDAP 2017-02-28 Completed [facility] 00[facility]00:00 [facility] TDAP 2017-02-28 Completed [facility] 00[facility]00:00 [facility] TDAP 2017-02-28 Completed [facility] 00:00:00 [facility] TDAP 2017-02-28 Completed [facility] 00[facility]00:00 [facility] TDAP 2017-02-28 Completed [facility] 00:00:00 [facility] TDAP 2017-02-28 Completed [facility] 00[facility]00:00 [facility] TDAP 2017-02-28 Completed [facility] 00[facility]00:00 [facility] TDAP 2017-02-28 Completed [facility] 00:00:00 [facility] TDAP 2017-02-28 Completed [facility] 00[facility]00:00 [facility] TDAP 2017-02-28 Completed [facility] 00:00:00 [facility] TDAP 2017-02-28 Completed [facility] 00[facility]00:00 [facility] TDAP 2017-02-28 Completed [facility] 00:00:00 [facility] TDAP 2017-02-28 Completed [facility] 00[facility]00:00 [facility] TDAP 2017-02-28 Completed [facility] 00:00:00 [facility] TDAP 2017-02-28 Completed [facility] 00:00:00 [facility] TDAP 2017-02-28 Completed [facility] 00:00:00 [facility] TDAP 2017-02-28 Completed [facility] 00:00:00 [facility] TDAP 2017-02-28 Completed [facility] 00:00:00 [facility] TDAP 2017-02-28 Completed [facility] 00:00:00 [facility] TDAP 2017-02-28 Completed [facility] 00:00:00 [facility] TDAP 2017-02-28 Completed [facility] 00:00:00 [facility] TDAP 2017-02-28 Completed [facility] 00:00:00 [facility] TDAP 2017-02-28 Completed [facility] 00:00:00 [facility] TDAP 2017-02-28 Completed [facility] 00[facility]00:00 [facility] TDAP 2017-02-28 Completed [facility] 00:00:00 [facility] TDAP 2017-02-28 Completed [facility] 00:00:00 [facility] TDAP 2017-02-28 Completed [facility] 00:00:00 [facility] TDAP 2017-02-28 Completed [facility] 00:00:00 [facility] TDAP 2017-02-28 Completed [facility] 00:00:00 [facility] TDAP 2017-02-28 Completed [facility] 00:00:00 [facility] TDAP 2017-02-28 Completed [facility] 00:00:00 [facility] TDAP 2017-02-28 Completed [facility] 00:00:00 [facility] TDAP 2017-02-28 Completed [facility] 00:00:00 [facility] TDAP 2017-02-28 Completed [facility] 00:00:00 [facility] TDAP 2017-02-28 Completed [facility] 00:00:00 [facility] TDAP 2017-02-28 Completed [facility] 00:00:00 [facility] TDAP 2017-02-28 Completed [facility] 00:00:00 [facility] TDAP 2017-02-28 Completed [facility] 00:00:00 [facility] TDAP 2017-02-28 Completed [facility] 00:00:00 [facility] TDAP 2017-02-28 Completed [facility] 00:00:00 [facility] TDAP 2017-02-28 Completed [facility] 00:00:00 [facility] TDAP 2017-02-28 Completed [facility] 00:00:00 [facility] TDAP 2017-02-28 Completed [facility] 00:00:00 [facility] TDAP 2017-02-28 Completed [facility] 00:00:00 [facility] TDAP 2017-02-28 Completed [facility] 00:00:00 [facility] TDAP 2017-02-28 Completed [facility] 00:00:00 [facility] TDAP 2017-02-28 Completed [facility] 00:00:00 [facility] TDAP 2017-02-28 Completed [facility] 00:00:00 [facility] TDAP 2017-02-28 Completed [facility] 00:00:00 [facility] TDAP 2017-02-28 Completed [facility] 00:00:00 [facility] TDAP 2017-02-28 Completed [facility] 00:00:00 [facility] TDAP 2017-02-28 Completed [facility] 00:00:00 [facility] TDAP 2017-02-28 Completed [facility] 00:00:00 [facility] TDAP 2017-02-28 Completed [facility] 00:00:00 [facility] TDAP 2017-02-28 Completed [facility] 00:00:00 [facility] TDAP 2017-02-28 Completed [facility] 00:00:00 [facility] TDAP 2017-02-28 Completed [facility] 00:00:00 [facility] TDAP 2017-02-28 Completed [facility] 00:00:00 [facility] TDAP 2017-02-28 Completed [facility] 00:00:00 [facility] TDAP 2017-02-28 Completed [facility] 00:00:00 [facility] TDAP 2017-02-28 Completed [facility] 00:00:00 [facility] TDAP 2017-02-28 Completed [facility] 00:00:00 [facility] TDAP 2017-02-28 Completed [facility] 00:00:00 [facility] TDAP 2017-02-28 Completed [facility] 00:00:00 [facility] TDAP 2017-02-28 Completed [facility] 00:00:00 [facility] TDAP 2017-02-28 Completed [facility] 00:00:00 [facility] TDAP 2017-02-28 Completed [facility] 00:00:00 [facility] TDAP 2017-02-28 Completed [facility] 00:00:00 [facility] TDAP 2017-02-28 Completed [facility] 00:00:00 [facility] TDAP 2017-02-28 Completed [facility] 00:00:00 [facility] TDAP 2017-02-28 Completed [facility] 00:00:00 [facility] TDAP 2017-02-28 Completed [facility] 00:00:00 [facility] TDAP 2017-02-28 Completed [facility] 00:00:00 [facility] TDAP 2017-02-28 Completed [facility] 00:00:00 [facility] TDAP 2017-02-28 Completed [facility] 00:00:00 [facility] TDAP 2017-02-28 Completed [facility] 00:00:00 [facility] TDAP 2017-02-28 Completed [facility] 00:00:00 [facility] TDAP 2017-02-28 Completed [facility] 00:00:00 [facility] TDAP 2017-02-28 Completed [facility] 00:00:00 [facility] TDAP 2017-02-28 Completed [facility] 00:00:00 [facility] TDAP 2017-02-28 Completed [facility] 00:00:00 [facility] TDAP 2017-02-28 Completed [facility] 00:00:00 [facility] TDAP 2017-02-28 Completed [facility] 00:00:00 [facility] TDAP 2017-02-28 Completed [facility] 00:00:00 [facility] TDAP 2017-02-28 Completed [facility] 00:00:00 [facility] TDAP 2017-02-28 Completed [facility] 00:00:00 [facility] TDAP 2017-02-28 Completed [facility] 00:00:00 [facility] TDAP 2017-02-28 Completed [facility] 00:00:00 [facility] TDAP 2012-08-26 Completed [facility] 00:00:00 [facility] TDAP 2012-08-26 Completed [facility] 00:00:00 [facility] TDAP 2012-08-26 Completed [facility] 00:00:00 [facility] TDAP 2012-08-26 Completed [facility] 00:00:00 [facility] TDAP 2012-08-26 Completed [facility] 00:00:00 [facility] TDAP 2012-08-26 Completed [facility] 00:00:00 [facility] TDAP 2012-08-26 Completed [facility] 00:00:00 [facility] TDAP 2012-08-26 Completed [facility] 00:00:00 [facility] TDAP 2012-08-26 Completed [facility] 00:00:00 [facility] TDAP 2012-08-26 Completed [facility] 00:00:00 [facility] TDAP 2012-08-26 Completed [facility] 00:00:00 [facility] TDAP 2012-08-26 Completed [facility] 00:00:00 [facility] TDAP 2012-08-26 Completed [facility] 00:00:00 [facility] TDAP 2012-08-26 Completed [facility] 00:00:00 [facility] TDAP 2012-08-26 Completed [facility] 00:00:00 [facility] TDAP 2012-08-26 Completed [facility] 00:00:00 [facility] TDAP 2012-08-26 Completed [facility] 00:00:00 [facility] TDAP 2012-08-26 Completed [facility] 00:00:00 [facility] TDAP 2012-08-26 Completed [facility] 00:00:00 [facility] TDAP 2012-08-26 Completed [facility] 00:00:00 [facility] TDAP 2012-08-26 Completed [facility] 00:00:00 [facility] TDAP 2012-08-26 Completed [facility] 00:00:00 [facility] TDAP 2012-08-26 Completed [facility] 00:00:00 [facility] TDAP 2012-08-26 Completed [facility] 00:00:00 [facility] TDAP 2012-08-26 Completed [facility] 00:00:00 [facility] TDAP 2012-08-26 Completed [facility] 00:00:00 [facility] TDAP 2012-08-26 Completed [facility] 00:00:00 [facility] TDAP 2012-08-26 Completed [facility] 00:00:00 [facility] TDAP 2012-08-26 Completed [facility] 00:00:00 [facility] TDAP 2012-08-26 Completed [facility] 00:00:00 [facility] TDAP 2012-08-26 Completed [facility] 00:00:00 [facility] TDAP 2012-08-26 Completed [facility] 00:00:00 [facility] TDAP 2012-08-26 Completed [facility] 00:00:00 [facility] TDAP 2012-08-26 Completed [facility] 00:00:00 [facility] TDAP 2012-08-26 Completed [facility] 00:00:00 [facility] TDAP 2012-08-26 Completed [facility] 00:00:00 [facility] TDAP 2012-08-26 Completed [facility] 00:00:00 [facility] TDAP 2012-08-26 Completed [facility] 00:00:00 [facility] TDAP 2012-08-26 Completed [facility] 00:00:00 [facility] TDAP 2012-08-26 Completed [facility] 00:00:00 [facility] TDAP 2012-08-26 Completed [facility] 00:00:00 [facility] TDAP 2012-08-26 Completed [facility] 00:00:00 [facility] TDAP 2012-08-26 Completed [facility] 00:00:00 [facility] TDAP 2012-08-26 Completed [facility] 00:00:00 [facility] TDAP 2012-08-26 Completed [facility] 00:00:00 [facility] TDAP 2012-08-26 Completed [facility] 00:00:00 [facility] TDAP 2012-08-26 Completed [facility] 00:00:00 [facility] TDAP 2012-08-26 Completed [facility] 00:00:00 [facility] TDAP 2012-08-26 Completed [facility] 00:00:00 [facility] TDAP 2012-08-26 Completed [facility] 00:00:00 [facility] TDAP 2012-08-26 Completed [facility] 00:00:00 [facility] TDAP 2012-08-26 Completed [facility] 00:00:00 [facility] TDAP 2012-08-26 Completed [facility] 00:00:00 [facility] TDAP 2012-08-26 Completed [facility] 00:00:00 [facility] TDAP 2012-08-26 Completed [facility] 00:00:00 [facility] TDAP 2012-08-26 Completed [facility] 00:00:00 [facility] TDAP 2012-08-26 Completed [facility] 00:00:00 [facility] TDAP 2012-08-26 Completed [facility] 00:00:00 [facility] TDAP 2012-08-26 Completed [facility] 00:00:00 [facility] TDAP 2012-08-26 Completed [facility] 00:00:00 [facility] TDAP 2012-08-26 Completed [facility] 00:00:00 [facility] TDAP 2012-08-26 Completed [facility] 00:00:00 [facility] TDAP 2012-08-26 Completed [facility] 00:00:00 [facility] TDAP 2012-08-26 Completed [facility] 00:00:00 [facility] TDAP 2012-08-26 Completed [facility] 00:00:00 [facility] TDAP 2012-08-26 Completed [facility] 00:00:00 [facility] TDAP 2012-08-26 Completed [facility] 00:00:00 [facility] TDAP 2012-08-26 Completed [facility] 00:00:00 [facility] TDAP 2012-08-26 Completed [facility] 00:00:00 [facility] TDAP 2012-08-26 Completed [facility] 00:00:00 [facility] TDAP 2012-08-26 Completed [facility] 00:00:00 [facility] TDAP 2012-08-26 Completed [facility] 00:00:00 [facility] TDAP 2012-08-26 Completed [facility] 00:00:00 [facility] TDAP 2012-08-26 Completed [facility] 00:00:00 [facility] TDAP 2012-08-26 Completed [facility] 00:00:00 [facility] TDAP 2012-08-26 Completed [facility] 00:00:00 [facility] TDAP 2012-08-26 Completed [facility] 00:00:00 [facility] TDAP 2012-08-26 Completed [facility] 00:00:00 [facility] TDAP 2012-08-26 Completed [facility] 00:00:00 [facility] TDAP 2012-08-26 Completed [facility] 00:00:00 [facility] TDAP 2012-08-26 Completed [facility] 00:00:00 [facility] TDAP 2012-08-26 Completed [facility] 00:00:00 [facility] TDAP 2012-08-26 Completed [facility] 00:00:00 [facility] TDAP 2012-08-26 Completed [facility] 00:00:00 [facility] TDAP 2012-08-26 Completed [facility] 00:00:00 [facility] TDAP 2012-08-26 Completed [facility] 00:00:00 [facility] TDAP 2012-08-26 Completed [facility] 00:00:00 [facility] TDAP 2012-08-26 Completed [facility] 00:00:00 [facility] TDAP 2012-08-26 Completed [facility] 00:00:00 [facility] TDAP 2012-08-26 Completed [facility] 00:00:00 [facility] TDAP 2012-08-26 Completed [facility] 00:00:00 [facility] TDAP 2012-08-26 Completed [facility] 00:00:00 [facility] TDAP 2012-08-26 Completed [facility] 00:00:00 [facility] TDAP 2012-08-26 Completed [facility] 00:00:00 [facility] TDAP 2012-08-26 Completed [facility] 00:00:00 [facility] TDAP 2012-08-26 Completed [facility] 00:00:00 [facility] TDAP 2012-08-26 Completed [facility] 00:00:00 [facility] TDAP 2012-08-26 Completed [facility] 00:00:00 [facility] TDAP 2012-08-26 Completed [facility] 00:00:00 [facility] TDAP 2012-08-26 Completed [facility] 00:00:00 [facility] TDAP 2012-08-26 Completed [facility] 00:00:00 [facility] TDAP 2012-08-26 Completed [facility] 00:00:00 [facility] TDAP 2012-08-26 Completed [facility] 00:00:00 [facility] TDAP 2012-08-26 Completed [facility] 00:00:00 [facility] TDAP 2012-08-26 Completed [facility] 00:00:00 [facility] TDAP 2012-08-26 Completed [facility] 00:00:00 [facility] TDAP 2012-08-26 Completed [facility] 00:00:00 [facility] TDAP 2012-08-26 Completed [facility] 00:00:00 [facility] TDAP 2012-08-26 Completed [facility] 00:00:00 [facility] TDAP 2012-08-26 Completed [facility] 00:00:00 [facility] TDAP 2012-08-26 Completed [facility] 00:00:00 [facility] TDAP 2012-08-26 Completed [facility] 00:00:00 [facility] TDAP 2012-08-26 Completed [facility] 00:00:00 [facility] TDAP 2012-08-26 Completed [facility] 00:00:00 [facility] TDAP 2012-08-26 Completed [facility] 00:00:00 [facility] TDAP 2012-08-26 Completed [facility] 00:00:00 [facility] TDAP 2012-08-26 Completed [facility] 00:00:00 [facility] TDAP 2012-08-26 Completed [facility] 00:00:00 [facility] TDAP 2012-08-26 Completed [facility] 00:00:00 [facility] TDAP 2012-08-26 Completed [facility] 00:00:00 [facility] TDAP 2012-08-26 Completed [facility] 00:00:00 [facility] TDAP 2012-08-26 Completed [facility] 00:00:00 [facility] TDAP 2012-08-26 Completed [facility] 00:00:00 [facility] TDAP 2012-08-26 Completed [facility] 00:00:00 [facility] TDAP 2012-08-26 Completed [facility] 00:00:00 [facility] TDAP 2012-08-26 Completed [facility] 00:00:00 [facility] TDAP 2012-08-26 Completed [facility] 00:00:00 [facility] TDAP 2012-08-26 Completed [facility] 00:00:00 [facility] TDAP 2012-08-26 Completed [facility] 00:00:00 [facility] TDAP 2012-08-26 Completed [facility] 00:00:00 [facility] TDAP 2012-08-26 Completed [facility] 00:00:00 [facility] TDAP 2012-08-26 Completed [facility] 00:00:00 [facility] TDAP 2012-08-26 Completed [facility] 00:00:00 [facility] TDAP 2012-08-26 Completed [facility] 00:00:00 [facility] TDAP 2012-08-26 Completed [facility] 00:00:00 [facility] TDAP 2012-08-26 Completed [facility] 00:00:00 [facility] TDAP 2012-08-26 Completed [facility] 00:00:00 [facility] TDAP 2012-08-26 Completed [facility] 00:00:00 [facility] TDAP 2012-08-26 Completed [facility] 00:00:00 [facility] TDAP 2012-08-26 Completed [facility] 00:00:00 [facility] TDAP 2012-08-26 Completed [facility] 00:00:00 [facility] TDAP 2012-08-26 Completed [facility] 00:00:00 [facility] TDAP 2012-08-26 Completed [facility] 00:00:00 [facility] TDAP 2012-08-26 Completed [facility] 00:00:00 [facility] TDAP 2012-08-26 Completed [facility] 00:00:00 [facility] TDAP 2012-08-26 Completed [facility] 00:00:00 [facility] TDAP 2012-08-26 Completed [facility] 00:00:00 [facility] TDAP 2012-08-26 Completed [facility] 00:00:00 [facility] TDAP 2012-08-26 Completed [facility] 00:00:00 [facility] TDAP 2012-08-26 Completed [facility] 00:00:00 [facility] TDAP 2012-08-26 Completed [facility] 00:00:00 [facility] TDAP 2012-08-26 Completed [facility] 00:00:00 [facility] TDAP 2012-08-26 Completed [facility] 00:00:00 [facility] TDAP 2012-08-26 Completed [facility] 00:00:00 [facility] TDAP 2012-08-26 Completed [facility] 00:00:00 [facility] TDAP 2012-08-26 Completed [facility] 00:00:00 [facility] TDAP 2012-08-26 Completed [facility] 00:00:00 [facility] TDAP 2012-08-26 Completed [facility] 00:00:00 [facility] TDAP 2012-08-26 Completed [facility] 00:00:00 [facility] TDAP 2012-08-26 Completed [facility] 00:00:00 [facility] TDAP 2012-08-26 Completed [facility] 00:00:00 [facility] TDAP 2012-08-26 Completed [facility] 00:00:00 [facility] TDAP 2012-08-26 Completed [facility] 00:00:00 [facility] TDAP 2012-08-26 Completed [facility] 00:00:00 [facility] TDAP 2012-08-26 Completed [facility] 00:00:00 [facility] TDAP 2012-08-26 Completed [facility] 00:00:00 [facility] TDAP 2012-08-26 Completed [facility] 00:00:00 [facility] TDAP 2012-08-26 Completed [facility] 00:00:00 [facility] TDAP 2012-08-26 Completed [facility] 00:00:00 [facility] TDAP 2012-08-26 Completed [facility] 00:00:00 [facility] TDAP 2012-08-26 Completed [facility] 00:00:00 [facility] TDAP 2012-08-26 Completed [facility] 00:00:00 [facility] TDAP 2012-08-26 Completed [facility] 00:00:00 [facility] TDAP 2012-08-26 Completed [facility] 00:00:00 [facility] TDAP 2012-08-26 Completed [facility] 00:00:00 [facility] TDAP 2012-08-26 Completed [facility] 00:00:00 [facility] TDAP 2012-08-26 Completed [facility] 00:00:00 [facility] TDAP 2012-08-26 Completed [facility] 00:00:00 [facility] TDAP 2012-08-26 Completed [facility] 00:00:00 [facility] TDAP 2012-08-26 Completed [facility] 00:00:00 [facility] TDAP 2012-08-26 Completed [facility] 00:00:00 [facility] TDAP 2012-08-26 Completed [facility] 00:00:00 [facility] TDAP 2012-08-26 Completed [facility] 00:00:00 [facility] TDAP 2012-08-26 Completed [facility] 00:00:00 [facility] TDAP 2012-08-26 Completed [facility] 00:00:00 [facility] TDAP 2012-08-26 Completed [facility] 00:00:00 [facility] TDAP 2012-08-26 Completed [facility] 00:00:00 [facility] TDAP 2012-08-26 Completed [facility] 00:00:00 [facility] TDAP 2012-08-26 Completed [facility] 00:00:00 [facility] TDAP 2012-08-26 Completed [facility] 00:00:00 [facility] TDAP 2012-08-26 Completed [facility] 00:00:00 [facility] TDAP 2012-08-26 Completed [facility] 00:00:00 [facility] TDAP 2012-08-26 Completed [facility] 00[facility]00:00 [facility] TDAP 2012-08-26 Completed [facility] 00:00:00 [facility] TDAP Unknown Completed [facility] MMR Unknown Completed [facility] Influenza Virus Unknown Completed [facility] Vaccine Quad IM 3+ [facility] Influenza Virus Unknown Completed [facility] Vaccine [facility] .5 mL [facility] 6+ [place] [facility] (FLUZONE/FLULAVAL/F LUARIX) Pneumococcal Unknown Completed [facility] o f Polysaccharide, [place] [facility] PPSV23 (PNEUMOVAX) [facility] TDAP Unknown Completed [facility] Influenza Virus Unknown Completed [facility] Vaccine [facility] .5 mL [facility] 6+ [place] [facility] (FLUZONE/FLULAVAL/F LUARIX) Influenza Virus Unknown Completed [facility] of Vaccine [facility] Influenza Virus Unknown Completed [facility] .5 mL [facility] IM 6+ [place] [facility] (FLUZONE/FLULAVAL/F LUARIX) TDAP Unknown Completed [facility] MMR Unknown Completed [facility] Influenza Virus Unknown Completed [facility] Vaccine [facility] IM 3+ [facility] Influenza Virus Unknown Completed [facility] .5 mL [facility] IM 6+ [place] [facility] (FLUZONE/FLULAVAL/F LUARIX) Pneumococcal Unknown Completed [facility] o f Polysaccharide, [place] [facility] PPSV23 (PNEUMOVAX) [facility] TDAP Unknown Completed [facility] Influenza Virus Unknown Completed [facility] .5 mL [facility] 6+ [facility] (FLUZONE/FLULAVAL/F LUARIX) Influenza Virus Unknown Completed [facility] Vaccine [facility] [place] Influenza Virus Unknown Completed [facility] .5 mL [facility] 6+ [facility] (FLUZONE/FLULAVAL/F LUARIX) TDAP Unknown Completed [facility] MMR Unknown Completed [facility] Influenza Virus Unknown Completed [facility]ine [facility] IM 3+ [place] [facility] Influ[facility] Virus Unknown Completed [facility] Vaccine Quad .5 mL [facility] 6+ MO Branch (FLUZONE/FLULAVAL/F LUARIX) Pneumococcal Unknown Completed University o f Polysaccharide, [facility] ical PPSV23 (PNEUMOVAX) Branch TDAP Unknown Completed [facility] Influenza Virus Unknown Completed [facility] of Vaccine Quad .5 mL [facility] 6+ MO Branch (FLUZONE/FLULAVAL/F LUARIX) Influenza Virus Unknown Completed [facility]it y of Vaccine [facility] Influenza Virus Unknown Completed [facility] of Vaccine Quad .5 mL [facility] 6+ MO Branch (FLUZONE/FLULAVAL/F LUARIX) TDAP Unknown Completed [facility] MMR Unknown Completed [facility] Influenza Virus Unknown Completed [facility] of Vaccine Quad IM 3+ [facility] Influenza Virus Unknown Completed [facility] Vaccine Quad .5 mL [facility] 6+ MO Branch (FLUZONE/FLULAVAL/F LUARIX) Pneumococcal Unknown Completed [facility] o f Polysaccharide, [place] [facility] ical PPSV23 (PNEUMOVAX) Branch TDAP Unknown Completed [facility] Influenza Virus Unknown Completed [facility] of Vaccine Quad .5 mL [facility] 6+ MO Branch (FLUZONE/FLULAVAL/F LUARIX) Influenza Virus Unknown Completed [facility] of Vaccine [facility] Influenza Virus Unknown Completed [facility] of Vaccine Quad .5 mL [facility] 6+ MO Branch (FLUZONE/FLULAVAL/F LUARIX) TDAP Unknown Completed [facility] MMR Unknown Completed [facility] Influenza Virus Unknown Completed [facility] of Vaccine Quad IM 3+ [facility] Influenza Virus Unknown Completed [facility] of Vaccine Quad .5 mL [facility] 6+ MO Branch (FLUZONE/FLULAVAL/F LUARIX) Pneumococcal Unknown Completed University o f Polysaccharide, [facility] ical PPSV23 (PNEUMOVAX) Branch TDAP Unknown Completed [facility] Influenza Virus Unknown Completed [facility] Vaccine Quad .5 mL [facility] 6[facility] MO Branch (FLUZONE/FLULAVAL/F LUARIX) Influenza Virus Unknown Completed [facility] Vaccine [facility] [place] Influenza Virus Unknown Completed [facility] Vaccine Quad .5 mL [facility] 6+ MO Branch (FLUZONE/FLULAVAL/F LUARIX) TDAP Unknown Completed [facility] MMR Unknown Completed [facility] Influenza Virus Unknown Completed [facility] of Vaccine Quad IM 3+ [facility] YRS [place] Influenza Virus Unknown Completed [facility] y of Vaccine Quad .5 mL [facility] 6+ MO Branch (FLUZONE/FLULAVAL/F LUARIX) Pneumococcal Unknown Completed University o f Polysaccharide, [facility] ical PPSV23 (PNEUMOVAX) Branch TDAP Unknown Completed [facility] Influenza Virus Unknown Completed [facility] Vaccine Quad .5 mL [facility] 6+ MO Branch (FLUZONE/FLULAVAL/F LUARIX) Influenza Virus Unknown Completed [facility] Vaccine [facility] Influenza Virus Unknown Completed [facility] of Vaccine Quad .5 mL [facility] 6+ MO Branch (FLUZONE/FLULAVAL/F LUARIX) TDAP Unknown Completed [facility] MMR Unknown Completed [facility] Influenza Virus Unknown Completed [facility] of Vaccine Quad IM 3+ [facility] YRS [place] Influenza Virus Unknown Completed [facility] of Vaccine Quad .5 mL [facility] 6+ MO Branch (FLUZONE/FLULAVAL/F LUARIX) Pneumococcal Unknown Completed [facility] o [facility] Polysaccharide, [place] [facility] ical PPSV23 (PNEUMOVAX) Branch TDAP Unknown Completed [facility] Influenza Virus Unknown Completed [facility] of Vaccine Quad .5 mL [facility] 6+ MO Branch (FLUZONE/FLULAVAL/F LUARIX) Influenza Virus Unknown Completed [facility] y of Vaccine [facility] Influenza Virus Unknown Completed [facility] y of Vaccine Quad .5 mL [facility] 6+ MO Branch (FLUZONE/FLULAVAL/F LUARIX) TDAP Unknown Completed [facility] MMR Unknown Completed [facility] Influenza Virus Unknown Completed [facility] of Vaccine Quad IM 3+ [facility] YRS [place] Influenza Virus Unknown Completed [facility] of Vaccine Quad .5 mL [facility] IM 6+ MO Branch (FLUZONE/FLULAVAL/F LUARIX) Pneumococcal Unknown Completed University o f Polysaccharide, [facility] ical PPSV23 (PNEUMOVAX) Branch TDAP Unknown Completed [facility] Influenza Virus Unknown Completed [facility] of Vaccine Quad .5 mL [facility] IM 6+ MO Branch (FLUZONE/FLULAVAL/F LUARIX) Influenza Virus Unknown Completed [facility] of Vaccine [facility] Influenza Virus Unknown Completed [facility] of Vaccine Quad .5 mL [facility] IM 6+ MO Branch (FLUZONE/FLULAVAL/F LUARIX) TDAP Unknown Completed [facility] MMR Unknown Completed [facility] Influenza Virus Unknown Completed [facility] of Vaccine Quad IM 3+ [facility] Influenza Virus Unknown Completed [facility] of Vaccine Quad .5 mL [facility] 6+ MO Branch (FLUZONE/FLULAVAL/F LUARIX) Pneumococcal Unknown Completed [facility] o f Polysaccharide, [place] [facility] ical PPSV23 (PNEUMOVAX) Branch TDAP Unknown Completed [facility] Influenza Virus Unknown Completed [facility] of Vaccine Quad .5 mL [facility] 6+ MO Branch (FLUZONE/FLULAVAL/F LUARIX) Influenza Virus Unknown Completed [facility] of Vaccine [facility] Influenza Virus Unknown Completed [facility] y of Vaccine Quad .5 mL [facility] 6+ MO Branch (FLUZONE/FLULAVAL/F LUARIX) TDAP Unknown Completed [facility] MMR Unknown Completed [facility] Influenza Virus Unknown Completed [facility] of Vaccine Quad IM 3+ [facility] YRS [place] Influenza Virus Unknown Completed [facility] of Vaccine Quad .5 mL [facility] IM 6+ MO Branch (FLUZONE/FLULAVAL/F LUARIX) Pneumococcal Unknown Completed University o f Polysaccharide, [facility] ical PPSV23 (PNEUMOVAX) Branch TDAP Unknown Completed [facility] Influenza Virus Unknown Completed [facility] of Vaccine Quad .5 mL [facility] IM 6+ MO Branch (FLUZONE/FLULAVAL/F LUARIX) Influenza Virus Unknown Completed [facility] y of Vaccine [facility] Influenza Virus Unknown Completed [facility] y of Vaccine Quad .5 mL [facility] IM 6+ MO Branch (FLUZONE/FLULAVAL/F LUARIX) TDAP Unknown Completed [facility] MMR Unknown Completed [facility] Influenza Virus Unknown Completed [facility] of Vaccine Quad IM 3+ [facility] Influenza Virus Unknown Completed [facility] of Vaccine Quad .5 mL [facility] 6+ MO Branch (FLUZONE/FLULAVAL/F LUARIX) Pneumococcal Unknown Completed [facility] o f Polysaccharide, [place] [facility] ical PPSV23 (PNEUMOVAX) Branch TDAP Unknown Completed [facility] Influenza Virus Unknown Completed [facility] of Vaccine Quad .5 mL [facility] 6+ MO Branch (FLUZONE/FLULAVAL/F LUARIX) Influenza Virus Unknown Completed [facility] of Vaccine [facility] Influenza Virus Unknown Completed [facility] of Vaccine Quad .5 mL [facility] 6+ MO Branch (FLUZONE/FLULAVAL/F LUARIX) TDAP Unknown Completed [facility] MMR Unknown Completed [facility] Influenza Virus Unknown Completed [facility] y of Vaccine Quad IM 3+ [facility] Influenza Virus Unknown Completed [facility] of Vaccine Quad .5 mL [facility] 6+ MO Branch (FLUZONE/FLULAVAL/F LUARIX) Pneumococcal Unknown Completed [facility] o f Polysaccharide, [place] [facility] ical PPSV23 (PNEUMOVAX) Branch TDAP Unknown Completed [facility] Influenza Virus Unknown Completed [facility] of Vaccine Quad .5 mL [facility] 6+ MO Branch (FLUZONE/FLULAVAL/F LUARIX) Influenza Virus Unknown Completed [facility] y of Vaccine [facility] Influenza Virus Unknown Completed [facility] y of Vaccine Quad .5 mL [facility] 6+ MO Branch (FLUZONE/FLULAVAL/F LUARIX) TDAP Unknown Completed [facility] MMR Unknown Completed [facility] Influenza Virus Unknown Completed [facility] y of Vaccine Quad IM 3+ [facility] Influenza Virus Unknown Completed [facility] of Vaccine Quad .5 mL [facility] 6+ MO Branch (FLUZONE/FLULAVAL/F LUARIX) Pneumococcal Unknown Completed [facility] o f Polysaccharide, [place] [facility] ical PPSV23 (PNEUMOVAX) Branch TDAP Unknown Completed [facility] Influenza Virus Unknown Completed [facility] of Vaccine Quad .5 mL [facility] 6+ MO Branch (FLUZONE/FLULAVAL/F LUARIX) TDAP Unknown Completed [facility] MMR Unknown Completed [facility] Influenza Virus Unknown Completed [facility]it y of Vaccine Quad IM 3+ [facility] YRS [place] Influenza Virus Unknown Completed [facility] y of Vaccine Quad .5 mL [facility] IM 6+ MO Branch (FLUZONE/FLULAVAL/F LUARIX) Pneumococcal Unknown Completed [place] o f Polysaccharide, [facility] ical PPSV23 (PNEUMOVAX) Branch TDAP Unknown Completed [facility] Influenza Virus Unknown Completed [facility] y of Vaccine Quad .5 mL [facility] 6+ MO Branch (FLUZONE/FLULAVAL/F LUARIX) TDAP Unknown Completed [facility] MMR Unknown Completed [facility] Influenza Virus Unknown Completed [facility] y of Vaccine Quad IM 3+ [facility] Influenza Virus Unknown Completed [facility] y of Vaccine Quad .5 mL [facility] 6+ MO Branch (FLUZONE/FLULAVAL/F LUARIX) Pneumococcal Unknown Completed [place] o f Polysaccharide, [place] [facility] ical PPSV23 (PNEUMOVAX) Branch TDAP Unknown Completed [facility] Influenza Virus Unknown Completed [facility] of Vaccine Quad .5 mL [facility] 6+ MO Branch (FLUZONE/FLULAVAL/F LUARIX) TDAP Unknown Completed [facility] MMR Unknown Completed [facility] Influenza Virus Unknown Completed [facility]it y of Vaccine Quad IM 3+ [facility] Influenza Virus Unknown Completed [facility] y of Vaccine Quad .5 [facility] 6+ MO Branch (FLUZONE/FLULAVAL/F LUARIX) Pneumococcal Unknown Completed [place] o f Polysaccharide, [place] [facility] ical PPSV23 (PNEUMOVAX) Branch TDAP Unknown Completed [facility] Influenza Virus Unknown Completed [facility] y of Vaccine Quad .5 mL [facility] 6+ MO Branch (FLUZONE/FLULAVAL/F LUARIX) TDAP Unknown Completed [facility] MMR Unknown Completed [facility] Influenza Virus Unknown Completed [facility]it y of Vaccine Quad IM 3+ [facility] Influenza Virus Unknown Completed [facility] y of Vaccine Quad .5 mL [facility] 6+ MO Branch (FLUZONE/FLULAVAL/F LUARIX) Pneumococcal Unknown Completed [place] o f Polysaccharide, [place] [facility] ical PPSV23 (PNEUMOVAX) Branch TDAP Unknown Completed [facility] Influenza Virus Unknown Completed [facility] y of Vaccine Quad .5 mL [facility] IM 6+ MO Branch (FLUZONE/FLULAVAL/F LUARIX) TDAP Unknown Completed [facility] MMR Unknown Completed [facility] Influenza Virus Unknown Completed [facility]it y of Vaccine Quad IM 3+ [facility] Influenza Virus Unknown Completed [facility] y of Vaccine Quad .5 mL [facility] IM 6+ MO Branch (FLUZONE/FLULAVAL/F LUARIX) Pneumococcal Unknown Completed [facility] o f Polysaccharide, [place] [facility] ical PPSV23 (PNEUMOVAX) Branch TDAP Unknown Completed [facility] TDAP Unknown Completed [facility] MMR Unknown Completed [facility] Influenza Virus Unknown Completed [facility] y of Vaccine Quad IM 3+ [facility] Influenza Virus Unknown Completed [facility] y of Vaccine Quad .5 mL [facility] 6+ MO Branch (FLUZONE/FLULAVAL/F LUARIX) Pneumococcal Unknown Completed [facility] o f Polysaccharide, [place] [facility] ical PPSV23 (PNEUMOVAX) Branch TDAP Unknown Completed [facility] TDAP Unknown Completed [facility] MMR Unknown Completed [facility] Influenza Virus Unknown Completed [facility]it y of Vaccine Quad IM 3+ [facility] Influenza Virus Unknown Completed [facility] y of Vaccine Quad .5 mL [facility] 6+ MO Branch (FLUZONE/FLULAVAL/F LUARIX) Pneumococcal Unknown Completed [facility] o f Polysaccharide, [place] [facility] ical PPSV23 (PNEUMOVAX) Branch TDAP Unknown Completed [facility] TDAP Unknown Completed [facility] MMR Unknown Completed [facility] Influenza Virus Unknown Completed [facility]it y of Vaccine Quad IM 3+ [facility] Influenza Virus Unknown Completed [facility] y of Vaccine Quad .5 mL [facility] 6+ MO Branch (FLUZONE/FLULAVAL/F LUARIX) Pneumococcal Unknown Completed [facility] o f Polysaccharide, [place] [facility] ical PPSV23 (PNEUMOVAX) Branch TDAP Unknown Completed [facility] TDAP Unknown Completed [facility] MMR Unknown Completed [facility] Influenza Virus Unknown Completed [facility]it y of Vaccine Quad IM 3+ [facility] Influenza Virus Unknown Completed [facility] y of Vaccine Quad .5 mL [facility] 6+ MO Branch (FLUZONE/FLULAVAL/F LUARIX) Pneumococcal Unknown Completed [facility] o f Polysaccharide, [place] [facility] ical PPSV23 (PNEUMOVAX) Branch TDAP Unknown Completed [facility] TDAP Unknown Completed [facility] MMR Unknown Completed [facility] Influenza Virus Unknown Completed [facility] y of Vaccine Quad IM 3+ [facility] Influenza Virus Unknown Completed [facility] y of Vaccine Quad .5 mL [facility] IM 6+ MO Branch (FLUZONE/FLULAVAL/F LUARIX) Pneumococcal Unknown Completed [place] [facility] (PNEUMOVAX) Branch TDAP Unknown Completed [facility] TDAP Unknown Completed [facility] MMR Unknown Completed [facility] Influenza Virus Unknown Completed [facility]it y of Vaccine Quad IM 3+ [facility] Influenza Virus Unknown Completed [facility] y of Vaccine Quad .5 mL [facility] 6+ MO Branch (FLUZONE/FLULAVAL/F LUARIX) Pneumococcal Unknown Completed [place] [facility] P[facility]V23 (PNEUMOVAX) Branch TDAP Unknown Completed [facility] TDAP Unknown Completed [facility] MMR Unknown Completed [facility] Influenza Virus Unknown Completed [facility]it y of Vaccine Quad IM 3+ [facility] Influenza Virus Unknown Completed [facility] y of Vaccine Quad .5 mL [facility] 6+ MO Branch (FLUZONE/FLULAVAL/F LUARIX) TDAP Unknown Completed [facility] TDAP Unknown Completed [facility] MMR Unknown Completed [facility] Influenza Virus Unknown Completed [facility]it y of Vaccine Quad IM 3+ [facility] Influenza Virus Unknown Completed [facility] y of Vaccine Quad .5 mL [facility] 6+ MO Branch (FLUZONE/FLULAVAL/F LUARIX) TDAP Unknown Completed [facility] TDAP Unknown Completed [facility] MMR Unknown Completed [facility] Influenza Virus Unknown Completed [facility]it y of Vaccine Quad IM 3+ [facility] Influenza Virus Unknown Completed [facility] y of Vaccine Quad .5 mL [facility] IM 6+ MO Branch (FLUZONE/FLULAVAL/F LUARIX) TDAP Unknown Completed [facility] TDAP Unknown Completed [facility] MMR Unknown Completed [facility] Influenza Virus Unknown Completed [facility] y of Vaccine Quad IM 3+ [facility] TDAP Unknown Completed [facility] TDAP Unknown Completed [facility] MMR Unknown Completed [facility] Influenza Virus Unknown Completed [facility]it y of Vaccine Quad IM 3+ [facility] YRS [place] Influenza Virus Unknown Completed [facility] y of Vaccine Quad .5 mL [facility] IM 6+ MO Branch (FLUZONE/FLULAVAL/F LUARIX) Pneumococcal Unknown Completed University o f Polysaccharide, [facility] ical PPSV23 (PNEUMOVAX) Branch TDAP Unknown Completed [facility] Influenza Virus Unknown Completed [facility] y of Vaccine Quad .5 mL [facility] IM 6+ MO Branch (FLUZONE/FLULAVAL/F LUARIX) Influenza Virus Unknown Completed [facility]it y of Vaccine [facility] Influenza Virus Unknown Completed [facility] y of Vaccine Quad .5 mL [facility] IM 6+ MO Branch (FLUZONE/FLULAVAL/F LUARIX) TDAP Unknown Completed [facility] MMR Unknown Completed [facility] Influenza Virus Unknown Completed [facility]it y of Vaccine Quad IM 3+ [facility] Influenza Virus Unknown Completed [facility] y of Vaccine Quad .5 mL [facility] 6+ MO Branch (FLUZONE/FLULAVAL/F LUARIX) Pneumococcal Unknown Completed University o f Polysaccharide, [facility] ical PPSV23 (PNEUMOVAX) Branch TDAP Unknown Completed [facility] Influenza Virus Unknown Completed [facility] y of Vaccine Quad .5 mL [facility] 6+ MO Branch (FLUZONE/FLULAVAL/F LUARIX) Influenza Virus Unknown Completed [facility]it y of Vaccine [facility] Influenza Virus Unknown Completed [facility] y of Vaccine Quad .5 mL [facility] 6+ MO Branch (FLUZONE/FLULAVAL/F LUARIX) TDAP Unknown Completed [facility] MMR Unknown Completed [facility] Influenza Virus Unknown Completed [facility]it y of Vaccine Quad IM 3+ [facility] Influenza Virus Unknown Completed [facility] y of Vaccine Quad .5 mL [facility] 6+ MO Branch (FLUZONE/FLULAVAL/F LUARIX) Pneumococcal Unknown Completed [facility] o f Polysaccharide, [place] [facility] ical PPSV23 (PNEUMOVAX) Branch TDAP Unknown Completed [facility] Influenza Virus Unknown Completed [facility] y of Vaccine Quad .5 mL [facility] 6+ MO Branch (FLUZONE/FLULAVAL/F LUARIX) Influenza Virus Unknown Completed [facility] y of Vaccine [facility] Influenza Virus Unknown Completed [facility] Vaccine Quad .5 mL [facility] 6[facility] MO Branch (FLUZONE/FLULAVAL/F LUARIX) TDAP Unknown Completed [facility] MMR Unknown Completed [facility] Influenza Virus Unknown Completed [facility]it y of Vaccine Quad IM 3+ [facility] Influenza Virus Unknown Completed [facility] y of Vaccine Quad .5 mL [facility] IM 6+ MO Branch (FLUZONE/FLULAVAL/F LUARIX) Pneumococcal Unknown Completed [facility] o f Polysaccharide, [place] [facility] ical PPSV23 (PNEUMOVAX) Branch TDAP Unknown Completed [facility] Influenza Virus Unknown Completed [facility] y of Vaccine Quad .5 mL [facility] 6+ MO Branch (FLUZONE/FLULAVAL/F LUARIX) Influenza Virus Unknown Completed [facility] y of Vaccine [facility] Influenza Virus Unknown Completed [facility] y of Vaccine Quad .5 mL [facility] 6+ MO Branch (FLUZONE/FLULAVAL/F LUARIX) TDAP Unknown Completed [facility] MMR Unknown Completed [facility] Influenza Virus Unknown Completed [facility] y of Vaccine Quad IM 3+ [facility] Influenza Virus Unknown Completed [facility] y of Vaccine Quad .5 mL [facility] 6+ MO Branch (FLUZONE/FLULAVAL/F LUARIX) Pneumococcal Unknown Completed [facility] o f Polysaccharide, [place] [facility] ical PPSV23 (PNEUMOVAX) Branch TDAP Unknown Completed [facility] Influenza Virus Unknown Completed [facility] y of Vaccine Quad .5 mL [facility] 6+ MO Branch (FLUZONE/FLULAVAL/F LUARIX) Influenza Virus Unknown Completed [facility] y of Vaccine [facility] Influenza Virus Unknown Completed [facility] y of Vaccine Quad .5 mL [facility] 6+ MO Branch (FLUZONE/FLULAVAL/F LUARIX) TDAP Unknown Completed [facility] MMR Unknown Completed [facility] Influenza Virus Unknown Completed [facility] y of Vaccine Quad IM 3+ [facility] Influenza Virus Unknown Completed [facility] y of Vaccine Quad .5 mL [facility] 6+ MO Branch (FLUZONE/FLULAVAL/F LUARIX) Pneumococcal Unknown Completed [facility] o f Polysaccharide, [place] [facility] ical PPSV23 (PNEUMOVAX) Branch TDAP Unknown Completed [facility] Influenza Virus Unknown Completed [facility] y of Vaccine Quad .5 mL [facility] 6+ MO Branch (FLUZONE/FLULAVAL/F LUARIX) Influenza Virus Unknown Completed [facility]it y of Vaccine [facility] Influenza Virus Unknown Completed [facility] y of Vaccine Quad .5 mL [facility] IM 6+ MO Branch (FLUZONE/FLULAVAL/F LUARIX) Pneumococcal Unknown Completed University o f Polysaccharide, [place] [facility] PPSV23 (PNEUMOVAX) Branch Influenza Virus Unknown Completed Universit y of Vaccine Quad , [facility] dical Preserv and ABX Branch Free 6 MO-64 YRS (FLUCELVAX) TDAP Unknown Completed [facility] MMR Unknown Completed [facility] Influenza Virus Unknown Completed Universit y of Vaccine Quad IM 3+ [facility] YRS Branch Influenza Virus Unknown Completed Universit y of Vaccine Quad .5 mL [facility] 6+ MO Branch (FLUZONE/FLULAVAL/F LUARIX) Pneumococcal Unknown Completed University o f Polysaccharide, [facility] ical PPSV23 (PNEUMOVAX) Branch TDAP Unknown Completed [facility] Influenza Virus Unknown Completed Universit y of Vaccine Quad .5 mL [facility] 6+ MO Branch (FLUZONE/FLULAVAL/F LUARIX) Influenza Virus Unknown Completed Universit y of Vaccine [facility] Influenza Virus Unknown Completed Universit y of Vaccine Quad .5 mL [facility] 6+ MO Branch (FLUZONE/FLULAVAL/F LUARIX) Pneumococcal Unknown Completed [facility] o f Polysaccharide, [place] [facility] PPSV23 (PNEUMOVAX) Branch Influenza Virus Unknown Completed Universit y of Vaccine Quad IM, [facility] dical Preserv and ABX Branch Free 6 MO-64 YRS (FLUCELVAX) TDAP Unknown Completed [facility] MMR Unknown Completed [facility] Influenza Virus Unknown Completed Universit y of Vaccine Quad IM 3+ [facility] YRS Branch Influenza Virus Unknown Completed [facility]it y of Vaccine Quad .5 mL [facility] 6+ MO Branch (FLUZONE/FLULAVAL/F LUARIX) Pneumococcal Unknown Completed [facility] o f Polysaccharide, [place] [facility] PPSV23 (PNEUMOVAX) Branch TDAP Unknown Completed [facility] Influenza Virus Unknown Completed Universit y of Vaccine Quad .5 mL [facility] 6+ MO Branch (FLUZONE/FLULAVAL/F LUARIX) Influenza Virus Unknown Completed Universit y of Vaccine [facility] Influenza Virus Unknown Completed [facility]it y of Vaccine Quad .5 mL [facility] 6+ MO Branch (FLUZONE/FLULAVAL/F LUARIX) Pneumococcal Unknown Completed University o f Polysaccharide, [facility] ical PPSV23 (PNEUMOVAX) Branch Influenza Virus Unknown Completed Universit y of Vaccine Quad IM, [facility] dical Preserv and ABX Branch Free 6 MO-64 YRS (FLUCELVAX) TDAP Unknown Completed [facility] MMR Unknown Completed [facility] Influenza Virus Unknown Completed [facility]it y of Vaccine Quad IM 3+ [facility] YRS Branch Influenza Virus Unknown Completed [facility]it y of Vaccine Quad .5 mL [facility] 6+ MO Branch (FLUZONE/FLULAVAL/F LUARIX) Pneumococcal Unknown Completed University o f Polysaccharide, [facility] ical PPSV23 (PNEUMOVAX) Branch TDAP Unknown Completed [facility] Influenza Virus Unknown Completed [facility]it y of Vaccine Quad .5 mL [facility] 6+ MO Branch (FLUZONE/FLULAVAL/F LUARIX) Influenza Virus Unknown Completed Universit y of Vaccine [facility] Influenza Virus Unknown Completed [facility]it y of Vaccine Quad .5 mL [facility] 6+ MO Branch (FLUZONE/FLULAVAL/F LUARIX) TDAP Unknown Completed [facility] MMR Unknown Completed [facility] Influenza Virus Unknown Completed Universit y of Vaccine Quad IM 3+ [facility] YRS Branch Influenza Virus Unknown Completed Universit y of Vaccine Quad .5 mL [facility] 6+ MO Branch (FLUZONE/FLULAVAL/F LUARIX) Pneumococcal Unknown Completed [place] o f Polysaccharide, [facility] ical PPSV23 (PNEUMOVAX) Branch TDAP Unknown Completed [facility] Influenza Virus Unknown Completed [facility]it y of Vaccine Quad .5 mL [facility] 6+ MO Branch (FLUZONE/FLULAVAL/F LUARIX) Influenza Virus Unknown Completed Universit y of Vaccine [facility] Influenza Virus Unknown Completed Universit y of Vaccine Quad .5 mL [facility] 6+ MO Branch (FLUZONE/FLULAVAL/F LUARIX) Pneumococcal Unknown Completed University o f Polysaccharide, [facility] ical PPSV23 (PNEUMOVAX) Branch Influenza Virus Unknown Completed Universit y of Vaccine Quad , [facility] dical Preserv and ABX Branch Free 6 MO-64 YRS (FLUCELVAX) TDAP Unknown Completed [facility] MMR Unknown Completed [facility] Influenza Virus Unknown Completed [facility]it y of Vaccine Quad IM 3+ [facility] YRS Branch Influenza Virus Unknown Completed [facility]it y of Vaccine Quad .5 mL [facility] 6+ MO Branch (FLUZONE/FLULAVAL/F LUARIX) Pneumococcal Unknown Completed [facility] o f Polysaccharide, [place] [facility] PPSV23 (PNEUMOVAX) Branch TDAP Unknown Completed [facility] Influenza Virus Unknown Completed [facility]it y of Vaccine Quad .5 mL [facility] IM 6+ MO Branch (FLUZONE/FLULAVAL/F LUARIX) Influenza Virus Unknown Completed [facility]it y of Vaccine [facility] Influenza Virus Unknown Completed Universit y of Vaccine Quad .5 mL [facility] 6+ MO Branch (FLUZONE/FLULAVAL/F LUARIX) Pneumococcal Unknown Completed University o f Polysaccharide, [facility] ical PPSV23 (PNEUMOVAX) Branch Influenza Virus Unknown Completed Universit y of Vaccine Quad IM, [facility] dical Preserv and ABX Branch Free 6 MO-64 YRS (FLUCELVAX) TDAP Unknown Completed [facility] MMR Unknown Completed [facility] Influenza Virus Unknown Completed Universit y of Vaccine Quad IM 3+ [facility] Influenza Virus Unknown Completed [facility]it y of Vaccine Quad .5 mL [facility] 6+ MO Branch (FLUZONE/FLULAVAL/F LUARIX) Pneumococcal Unknown Completed University o f Polysaccharide, [facility] ical PPSV23 (PNEUMOVAX) Branch TDAP Unknown Completed [facility] Influenza Virus Unknown Completed [facility]it y of Vaccine Quad .5 mL [facility] 6+ MO Branch (FLUZONE/FLULAVAL/F LUARIX) Influenza Virus Unknown Completed [facility]it y of Vaccine [facility] Influenza Virus Unknown Completed [facility]it y of Vaccine Quad .5 mL [facility] 6+ MO Branch (FLUZONE/FLULAVAL/F LUARIX) Pneumococcal Unknown Completed University o f Polysaccharide, [facility] ical PPSV23 (PNEUMOVAX) Branch Influenza Virus Unknown Completed Universit y of Vaccine Quad IM, [facility] dical Preserv and ABX Branch Free 6 MO-64 YRS (FLUCELVAX) TDAP Unknown Completed [facility] MMR Unknown Completed [facility] Influenza Virus Unknown Completed Universit y of Vaccine Quad IM 3+ [facility] Branch Influenza Virus Unknown Completed [facility] Vaccine Quad .[facility] mL [facility] 6[facility] MO Branch (FLUZONE/FLULAVAL/F LUARIX) Pneumococcal Unknown Completed [facility] o f Polysaccharide, [place] [facility] PPSV23 (PNEUMOVAX) Branch TDAP Unknown Completed [facility] Influenza Virus Unknown Completed [facility]it y of Vaccine Quad .5 mL [facility] IM 6+ MO Branch (FLUZONE/FLULAVAL/F LUARIX) Influenza Virus Unknown Completed [facility] y of Vaccine [place] [facility] [place] Influenza Virus Unknown Completed [facility]it y of Vaccine Quad .5 mL [facility] 6+ MO Branch (FLUZONE/FLULAVAL/F LUARIX) Pneumococcal Unknown Completed University o f Polysaccharide, [facility] ical PPSV23 (PNEUMOVAX) Branch Influenza Virus Unknown Completed Universit y of Vaccine Quad IM, [facility] dical Preserv and ABX Branch Free 6 MO-64 YRS (FLUCELVAX) TDAP Unknown Completed [facility] MMR Unknown Completed [facility] Influenza Virus Unknown Completed Universit y of Vaccine Quad IM 3+ [facility] Influenza Virus Unknown Completed [facility]it y of Vaccine Quad .5 mL [facility] 6+ MO Branch (FLUZONE/FLULAVAL/F LUARIX) Pneumococcal Unknown Completed University o f Polysaccharide, [facility] ical PPSV23 (PNEUMOVAX) Branch TDAP Unknown Completed [facility] Influenza Virus Unknown Completed [facility]it y of Vaccine Quad .5 mL [facility] 6+ MO Branch (FLUZONE/FLULAVAL/F LUARIX) Influenza Virus Unknown Completed Universit y of Vaccine [facility] Influenza Virus Unknown Completed [facility]it y of Vaccine Quad .5 mL [facility] 6+ MO Branch (FLUZONE/FLULAVAL/F LUARIX) Pneumococcal Unknown Completed [facility] o f Polysaccharide, [place] [facility] PPSV23 (PNEUMOVAX) Branch Influenza Virus Unknown Completed Universit y of Vaccine Quad IM, [facility] dical Preserv and ABX Branch Free 6 MO-64 YRS (FLUCELVAX) TDAP Unknown Completed [facility] MMR Unknown Completed [facility] Influenza Virus Unknown Completed Universit y of Vaccine Quad IM 3+ [facility] YRS [place] Influenza Virus Unknown Completed Universit y of Vaccine Quad .5 mL [facility] 6+ MO Branch (FLUZONE/FLULAVAL/F LUARIX) Pneumococcal Unknown Completed University o f Polysaccharide, [place] [facility] PPSV23 (PNEUMOVAX) Branch TDAP Unknown Completed [facility] Influenza Virus Unknown Completed [facility]it y of Vaccine Quad .5 mL [facility] IM 6+ MO Branch (FLUZONE/FLULAVAL/F LUARIX) Influenza Virus Unknown Completed [facility] y of Vaccine [facility] [place] Influenza Virus Unknown Completed [facility]it y of Vaccine Quad .5 mL [facility] 6+ MO Branch (FLUZONE/FLULAVAL/F LUARIX) TDAP Unknown Completed [facility] MMR Unknown Completed [facility] Influenza Virus Unknown Completed Universit y of Vaccine Quad IM 3+ [facility] YRS Branch Influenza Virus Unknown Completed [facility]it y of Vaccine Quad .5 mL [facility] 6+ MO Branch (FLUZONE/FLULAVAL/F LUARIX) Pneumococcal Unknown Completed University o f Polysaccharide, [facility] ical PPSV23 (PNEUMOVAX) Branch TDAP Unknown Completed [facility] Influenza Virus Unknown Completed Universit y of Vaccine Quad .5 mL [facility] 6+ MO Branch (FLUZONE/FLULAVAL/F LUARIX) Influenza Virus Unknown Completed Universit y of Vaccine [facility] Influenza Virus Unknown Completed [facility]it y of Vaccine Quad .5 mL [facility] 6+ MO Branch (FLUZONE/FLULAVAL/F LUARIX) Pneumococcal Unknown Completed University o f Polysaccharide, [facility] ical PPSV23 (PNEUMOVAX) Branch Influenza Virus Unknown Completed Universit y of Vaccine Quad , [facility] dical Preserv and ABX Branch Free 6 MO-64 YRS (FLUCELVAX) TDAP Unknown Completed [facility] MMR Unknown Completed [facility] Influenza Virus Unknown Completed Universit y of Vaccine Quad IM 3+ [facility] YRS Branch Influenza Virus Unknown Completed [facility]it y of Vaccine Quad .5 mL [facility] 6+ MO Branch (FLUZONE/FLULAVAL/F LUARIX) Pneumococcal Unknown Completed University o f Polysaccharide, [facility] ical PPSV23 (PNEUMOVAX) Branch TDAP Unknown Completed [facility] Influenza Virus Unknown Completed [facility]it y of Vaccine Quad .5 mL [facility] 6+ MO Branch (FLUZONE/FLULAVAL/F LUARIX) Influenza Virus Unknown Completed Universit y of Vaccine [facility] Influenza Virus Unknown Completed Universit y of Vaccine Quad .5 mL [facility] 6+ MO Branch (FLUZONE/FLULAVAL/F LUARIX) Pneumococcal Unknown Completed University o f Polysaccharide, [place] [facility] PPSV23 (PNEUMOVAX) Branch Influenza Virus Unknown Completed Universit y of Vaccine Quad , [facility] dical Preserv and ABX Branch Free 6 MO-64 YRS (FLUCELVAX) TDAP Unknown Completed [facility] MMR Unknown Completed [facility] Influenza Virus Unknown Completed Universit y of Vaccine Quad IM 3+ [facility] YRS Branch Influenza Virus Unknown Completed [facility]it y of Vaccine Quad .5 mL [facility] 6+ MO Branch (FLUZONE/FLULAVAL/F LUARIX) Pneumococcal Unknown Completed University o f Polysaccharide, [facility] ical PPSV23 (PNEUMOVAX) Branch TDAP Unknown Completed [facility] Influenza Virus Unknown Completed Universit y of Vaccine Quad .5 mL [facility] 6+ MO Branch (FLUZONE/FLULAVAL/F LUARIX) Influenza Virus Unknown Completed Universit y of Vaccine [facility] Influenza Virus Unknown Completed Universit y of Vaccine Quad .5 mL [facility] 6+ MO Branch (FLUZONE/FLULAVAL/F LUARIX) Pneumococcal Unknown Completed University o f Polysaccharide, [facility] ical PPSV23 (PNEUMOVAX) Branch Influenza Virus Unknown Completed Universit y of Vaccine Quad , [facility] dical Preserv and ABX Branch Free 6 MO-64 YRS (FLUCELVAX) TDAP Unknown Completed [facility] MMR Unknown Completed [facility] Influenza Virus Unknown Completed Universit y of Vaccine Quad IM 3+ [facility] YRS Branch Influenza Virus Unknown Completed Universit y of Vaccine Quad .5 mL [facility] 6+ MO Branch (FLUZONE/FLULAVAL/F LUARIX) Pneumococcal Unknown Completed University o f Polysaccharide, [place] [facility] PPSV23 (PNEUMOVAX) Branch TDAP Unknown Completed [facility] Influenza Virus Unknown Completed Universit y of Vaccine Quad .5 mL [facility] 6+ MO Branch (FLUZONE/FLULAVAL/F LUARIX) Influenza Virus Unknown Completed Universit y of Vaccine [facility] Influenza Virus Unknown Completed Universit y of Vaccine Quad .5 mL [facility] 6+ MO Branch (FLUZONE/FLULAVAL/F LUARIX) Pneumococcal Unknown Completed University o f Polysaccharide, [place] [facility] PPSV23 (PNEUMOVAX) Branch Influenza Virus Unknown Completed Universit y of Vaccine Quad IM, [facility] dical Preserv and ABX Branch Free 6 MO-64 YRS (FLUCELVAX) Vital Signs Vital Name Observation Time Observation Value Comments Source Systolic blood 2023-06-25 114 mm[Hg] University of pressure 19:40:00 [facility] Diastolic blood 2023-06-25 78 mm[Hg] University o f pressure 19:40:00 [facility] Heart rate 2023-06-25 82 /min University of 19:40:00 [facility] Respiratory rate 2023-06-25 12 /min University of 19:40:00 [facility] Body height 2023-06-25 162.6 cm University of 19:40:00 [facility] Body weight 2023-06-25 95.255 kg University of 19:40:00 [facility] BMI 2023-06-25 36.05 kg/m2 University of 19:40:00 [facility] Oxygen saturation 2023-06-25 97 /min University of in Arterial blood 19:40:00 [place] [facility] by Pulse oximetry Branch Systolic blood 2023-06-11 130 mm[Hg] University of pressure 18:36:00 [facility] Diastolic blood 2023-06-11 86 mm[Hg] University o f pressure 18:36:00 [facility] Heart rate 2023-06-11 77 /min University of 18:36:00 [facility] Body height 2023-06-11 162.6 cm University of 18:36:00 [facility] Body weight 2023-06-11 92.352 kg University of 18:36:00 [facility] BMI 2023-06-11 34.95 kg/m2 University of 18:36:00 [facility] Oxygen saturation 2023-06-11 97 /min University of in Arterial blood 18:36:00 [place] [facility]irm[facility] by Pulse oximetry Branch Systolic blood 2023-06-06 125 mm[Hg] University of pressure 18:24:00 [facility] Branch Diastolic blood 2023-06-06 86 mm[Hg] University o f pressure 18:24:00 [facility] Heart rate 2023-06-06 79 /min University of 18:24:00 [facility] Respiratory rate 2023-06-06 18 /min University of 18:24:00 [facility] Body height 2023-06-06 162.6 cm University of 18:24:00 [facility] Body weight 2023-06-06 91.173 kg University of 18:24:00 [facility] BMI 2023-06-06 34.50 kg/m2 University of 18:24:00 [facility] Systolic blood 2023-05-11 101 mm[Hg] University of pressure 19:10:00 [facility] Diastolic blood 2023-05-11 57 mm[Hg] University o f pressure 19:10:00 [facility] Heart rate 2023-05-11 84 /min University of 19:10:00 [facility] Respiratory rate 2023-05-11 16 /min University of 19:10:00 [facility] Oxygen saturation 2023-05-11 100 /min University of in Arterial blood 19:10:[address] [facility] nirmal by Pulse oximetry Branch Body height 2023-05-11 162.6 cm University of 18:07:00 [facility] Body weight 2023-05-11 90.719 kg University of 18:07:00 [facility] BMI 2023-05-11 34.33 kg/m2 University of 18:07:00 [facility] Systolic blood 2023-05-02 121 mm[Hg] University of pressure 18:07:00 [facility] Diastolic blood 2023-05-02 84 mm[Hg] University o f pressure 18:07:00 [facility] Heart rate 2023-05-02 93 /min University of 18:07:00 [facility] Body temperature 2023-05-02 37.11 [place] University of 18:07:00 [facility] Respiratory rate 2023-05-02 16 /min University of 18:07:00 [facility] Body height 2023-05-02 162.6 cm University of 18:07:00 [facility] Body weight 2023-05-02 92.579 kg University of 18:07:00 [facility] BMI 2023-05-02 35.03 kg/m2 University of 18:07:00 [facility] Oxygen saturation 2023-05-02 97 /min University of in Arterial blood 18:07:00 [place] [facility] by Pulse oximetry Branch Systolic blood 2023-04-09 113 mm[Hg] University of pressure 14:50:00 [facility] Diastolic blood 2023-04-09 88 mm[Hg] University o f pressure 14:50:00 [facility] Heart rate 2023-04-09 77 /min University of 14:50:00 [facility] Respiratory rate 2023-04-09 11 /min University of 14:50:00 [facility] Branch Oxygen saturation 2023-04-09 98 /min University of in Arterial blood 14:50:[address] [facility] nirmal by Pulse oximetry Branch Body temperature 2023-04-09 36.17 [place] University of 14:24:00 [facility] Body height 2023-04-09 162.6 cm University of 12:41:00 [facility] Body weight 2023-04-09 91.627 kg University of 12:41:00 [facility] Branch BMI 2023-04-09 34.67 kg/m2 University of 12:41:00 [facility] Branch Systolic blood 2023-04-09 136 mm[Hg] University of pressure 12:41:00 [facility] Diastolic blood 2023-04-09 93 mm[Hg] University o f pressure 12:41:00 [facility] Branch Heart rate 2023-04-09 79 /min University of 12:41:00 [facility] Branch Body temperature 2023-04-09 36.17 [place] University of 12:41:00 [facility] Branch Respiratory rate 2023-04-09 16 /min University of 12:41:00 [facility] Branch Body height 2023-04-09 162.6 cm University of 12:41:00 [facility] Body weight 2023-04-09 91.627 kg University of 12:41:00 [facility] BMI 2023-04-09 34.67 kg/m2 University of 12:41:00 [facility] Oxygen saturation 2023-04-09 99 /min University of in Arterial blood 12:41:[address] [facility] nirmal by Pulse oximetry Branch Systolic blood 2023-03-29 115 mm[Hg] University of pressure 19:30:00 [facility] Diastolic blood 2023-03-29 78 mm[Hg] University o f pressure 19:30:00 [facility] Heart rate 2023-03-29 85 /min University of 19:30:00 [facility] Branch Body temperature 2023-03-29 36.61 [place] University of 19:26:00 [facility] Branch Respiratory rate 2023-03-29 18 /min University of 19:26:00 [facility] Branch Body height 2023-03-29 162.6 cm University of 19:26:00 [facility] Body weight 2023-03-29 93.577 kg University of 19:26:00 [facility] BMI 2023-03-29 35.41 kg/m2 University of 19:26:00 [facility] Oxygen saturation 2023-03-29 99 /min University of in Arterial blood 19:26:00 [place] [facility] by Pulse oximetry Branch Systolic blood 2023-03-13 118 mm[Hg] University of pressure 19:14:00 [facility] Diastolic blood 2023-03-13 81 mm[Hg] University o f pressure 19:14:00 [facility] Heart rate 2023-03-13 74 /min University of 19:14:00 [facility] Body height 2023-03-13 162.6 cm University of 19:14:00 [facility] Body weight 2023-03-13 93.441 kg University of 19:14:00 [facility] BMI 2023-03-13 35.36 kg/m2 University of 19:14:00 [facility] Oxygen saturation 2023-03-13 99 /min University of in Arterial blood 19:14:[address] [facility] nirmal by Pulse oximetry Branch Systolic blood 2023-03-06 119 mm[Hg] University of pressure 20:09:00 [facility] Branch Diastolic blood 2023-03-06 85 mm[Hg] University o f pressure 20:09:00 [facility] Heart rate 2023-03-06 79 /min University of 20:09:00 [facility] Respiratory rate 2023-03-06 16 /min University of 20:09:00 [facility] Body height 2023-03-06 162.6 cm University of 20:09:00 [facility] Body weight 2023-03-06 93.804 kg University of 20:09:00 [facility] BMI 2023-03-06 35.50 kg/m2 University of 20:09:00 [facility] Oxygen saturation 2023-03-06 98 /min University of in Arterial blood 20:09:00 [place] [facility] by Pulse oximetry Branch Systolic blood 2023-02-19 121 mm[Hg] University of pressure 19:12:00 [facility] Diastolic blood 2023-02-19 84 mm[Hg] University o f pressure 19:12:00 [facility] Heart rate 2023-02-19 83 /min University of 19:12:00 [facility] Body height 2023-02-19 162.6 cm University of 19:12:00 [facility] Body weight 2023-02-19 93.35 kg University of 19:12:00 [facility] BMI 2023-02-19 35.33 kg/m2 University of 19:12:00 [facility] Systolic blood 2023-01-30 118 mm[Hg] University of pressure 19:51:00 [facility] Diastolic blood 2023-01-30 80 mm[Hg] University o f pressure 19:51:00 [facility] Heart rate 2023-01-30 89 /min University of 19:51:00 [facility] Respiratory rate 2023-01-30 18 /min University of 19:51:00 [facility] Body height 2023-01-30 162.6 cm University of 19:51:00 [facility] Body weight 2023-01-30 93.577 kg University of 19:51:00 [facility] BMI 2023-01-30 35.41 kg/m2 University of 19:51:00 [facility] Oxygen saturation 2023-01-30 97 /min University of in Arterial blood 19:51:[address] [facility] nirmal by Pulse oximetry Branch Systolic blood 2023-01-19 109 mm[Hg] University of pressure 19:30:00 [facility] Diastolic blood 2023-01-19 77 mm[Hg] University o f pressure 19:30:00 [facility] Heart rate 2023-01-19 92 /min University of 19:30:00 [facility] Body temperature 2023-01-19 36.56 [place] University of 19:30:00 [facility] Respiratory rate 2023-01-19 18 /min University of 19:30:00 [facility] Body height 2023-01-19 162.6 cm University of 19:30:00 [facility] Body weight 2023-01-19 93.668 kg University of 19:30:00 [facility] BMI 2023-01-19 35.45 kg/m2 University of 19:30:00 [facility] Oxygen saturation 2023-01-19 98 /min University of in Arterial blood 19:30:00 [facility] Pulse [facility] Systolic blood 2023-01-09 112 mm[Hg] University of pressure 14:59:00 [facility] Diastolic blood 2023-01-09 80 mm[Hg] University o f pressure 14:59:00 [facility] Heart rate 2023-01-09 78 /min University of 14:59:00 [facility] Respiratory rate 2023-01-09 16 /min University of 14:59:00 [facility] Body height 2023-01-09 162.6 cm University of 14:59:00 [facility] Body weight 2023-01-09 94.348 kg University of 14:59:00 [facility] BMI 2023-01-09 35.70 kg/m2 University of 14:59:00 [facility] Oxygen saturation 2023-01-09 98 /min University of in Arterial blood 14:59:00 [place] [facility] Pulse oxim[facility] Systolic blood 2023-01-01 131 mm[Hg] Patient just University of pressure 18:36:00 [facility] a [employer] [place] [facility] Diastolic blood 2023-01-01 92 mm[Hg] Patient [facility] o f pressure 18:36:00 had a [employer] [place] [facility] Heart rate 2023-01-01 86 /min University of 18:36:00 [facility] Body temperature 2023-01-01 36.44 [place] University of 18:36:00 [facility] Body height 2023-01-01 162.6 cm University of 18:36:00 [facility] Body weight 2023-01-01 94.348 kg University of 18:36:00 [facility] BMI 2023-01-01 35.70 kg/m2 University of 18:36:00 [facility] Oxygen saturation 2023-01-01 96 /min University of in Arterial blood 18:36:00 [place] [facility] Pulse oxim[facility] Systolic blood 2023-01-01 112 mm[Hg] University of pressure 15:13:00 [facility] Diastolic blood 2023-01-01 80 mm[Hg] University o f pressure 15:13:00 [facility] Heart rate 2023-01-01 76 /min University of 15:13:00 [facility] Respiratory rate 2023-01-01 18 /min University of 15:13:00 [facility] Body height 2023-01-01 162.6 cm University of 15:13:00 [facility] Body weight 2023-01-01 94.348 kg University of 15:13:00 [facility] BMI 2023-01-01 35.70 kg/m2 University of 15:13:00 [facility] Systolic blood 2022-12-11 100 mm[Hg] University of pressure 16:20:00 [facility] Diastolic blood 2022-12-11 79 mm[Hg] University o f pressure 16:20:00 [facility] Heart rate 2022-12-11 79 /min University of 16:20:00 [facility] Respiratory rate 2022-12-11 16 /min University of 16:20:00 [facility] Body temperature 2022-12-11 36.67 [place] University of 14:44:00 [facility] Body height 2022-12-11 162.6 cm University of 14:44:00 [facility] Body weight 2022-12-11 93.441 kg University of 14:44:00 [facility] BMI 2022-12-11 35.36 kg/m2 University of 14:44:00 [facility] Oxygen saturation 2022-12-11 100 /min University of in Arterial blood 14:44:00 [place] [facility] Pulse o[facility] Systolic blood 2022-11-29 115 mm[Hg] University of pressure 16:18:00 [facility] Diastolic blood 2022-11-29 80 mm[Hg] University o f pressure 16:18:00 [facility] Heart rate 2022-11-29 77 /min University of 16:18:00 [facility] Body temperature 2022-11-29 36.67 [place] University of 16:18:00 [facility] Respiratory rate 2022-11-29 18 /min University of 16:18:00 [facility] Body height 2022-11-29 162.6 cm University of 16:18:00 [facility] Body weight 2022-11-29 95.119 kg University of 16:18:00 [facility] BMI 2022-11-29 35.99 kg/m2 University of 16:18:00 [facility] Oxygen saturation 2022-11-29 98 /min University of in Arterial blood 16:18:00 [place] [facility] Pulse o[facility] Systolic blood 2022-10-25 134 mm[Hg] University of pressure 19:08:00 [facility] Diastolic blood 2022-10-25 84 mm[Hg] University o f pressure 19:08:00 [facility] Heart rate 2022-10-25 79 /min University of 19:08:00 [facility] Body temperature 2022-10-25 36.33 [place] University of 19:08:00 [facility] Respiratory rate 2022-10-25 16 /min University of 19:08:00 [facility] Body height 2022-10-25 162.6 cm University of 19:08:00 [facility] Body weight 2022-10-25 99.02 kg University of 19:08:00 [facility] BMI 2022-10-25 37.47 kg/m2 University of 19:08:00 [facility] Oxygen saturation 2022-10-25 99 /min University of in Arterial blood 19:08:00 [place] [facility] Pulse oxim[facility] Systolic blood 2022-10-24 116 mm[Hg] University of pressure 14:40:00 [facility] Diastolic blood 2022-10-24 82 mm[Hg] University o f pressure 14:40:00 [facility] Heart rate 2022-10-24 73 /min University of 14:40:00 [facility] Body height 2022-10-24 162.6 cm University of 14:40:00 [facility] Body weight 2022-10-24 99.791 kg University of 14:40:00 [facility] BMI 2022-10-24 37.76 kg/m2 University of 14:40:00 [facility] Oxygen saturation 2022-10-24 98 /min University of in Arterial blood 14:40:00 [place] [facility] Pulse o[facility] Systolic blood 2022-10-18 126 mm[Hg] University of pressure 20:33:00 [facility] Diastolic blood 2022-10-18 85 mm[Hg] University o f pressure 20:33:00 [facility] Heart rate 2022-10-18 83 /min University of 20:33:00 [facility] Body height 2022-10-18 162.6 cm University of 20:33:00 [facility] Body weight 2022-10-18 98.385 kg University of 20:33:00 [facility] BMI 2022-10-18 37.23 kg/m2 University of 20:33:00 [facility] Oxygen saturation 2022-10-18 99 /min University of in Arterial blood 20:33:00 [place] [facility] Pulse o[facility] Systolic blood 2022-09-21 125 mm[Hg] University of pressure 17:31:00 [facility] Diastolic blood 2022-09-21 81 mm[Hg] University o f pressure 17:31:00 [facility] Heart rate 2022-09-21 77 /min University of 17:31:00 [facility] Body temperature 2022-09-21 37.17 [place] University of 17:31:00 [facility] Body height 2022-09-21 162.6 cm University of 17:31:00 [facility] Body weight 2022-09-21 98.431 kg University of 17:31:00 [facility] BMI 2022-09-21 37.25 kg/m2 University of 17:31:00 [facility] Oxygen saturation 2022-09-21 97 /min University of in Arterial blood 17:31:00 [place] [facility] Pulse oxim[facility] Systolic blood 2022-09-15 96 mm[Hg] University of pressure 17:50:00 [facility] Diastolic blood 2022-09-15 67 mm[Hg] University o f pressure 17:50:00 [facility] Heart rate 2022-09-15 81 /min University of 17:50:00 [facility] Respiratory rate 2022-09-15 18 /min University of 17:50:00 [facility] Body temperature 2022-09-15 37 [place] University of 16:40:00 [facility] Body height 2022-09-15 162.6 cm University of 16:40:00 [facility] Body weight 2022-09-15 102.513 kg University of 16:40:00 [facility] BMI 2022-09-15 38.79 kg/m2 University of 16:40:00 [facility] Oxygen saturation 2022-09-15 100 /min University of in Arterial blood 16:40:00 [place] [facility] Pulse o[facility] Systolic blood 2022-09-13 114 mm[Hg] University of pressure 15:34:00 [facility] Diastolic blood 2022-09-13 79 mm[Hg] University o f pressure 15:34:00 [facility] Heart rate 2022-09-13 78 /min University of 15:34:00 [facility] Body weight 2022-09-13 102.83 kg University of 15:34:00 [facility] BMI 2022-09-13 38.91 kg/m2 University of 15:34:00 [facility] Oxygen saturation 2022-09-13 98 /min University of in Arterial blood 15:34:00 [place] [facility] Pulse oxim[facility] Systolic blood 2022-09-12 123 mm[Hg] University of pressure 15:38:00 [facility] Diastolic blood 2022-09-12 71 mm[Hg] University o f pressure 15:38:00 [facility] Heart rate 2022-09-12 70 /min University of 15:38:00 [facility] Body temperature 2022-09-12 36.94 [place] University of 15:38:00 [facility] Respiratory rate 2022-09-12 16 /min University of 15:38:00 [facility] Body height 2022-09-12 162.6 cm University of 15:38:00 [facility] Body weight 2022-09-12 102.059 kg University of 15:38:00 [facility] BMI 2022-09-12 38.62 kg/m2 University of 15:38:00 [facility] Oxygen saturation 2022-09-12 98 /min [facility] in Arterial blood 15:38:[address] [facility] nirmal by Pulse oximetry Branch Systolic blood 2022-08-21 123 mm[Hg] University of pressure 15:34:00 [facility] Diastolic blood 2022-08-21 85 mm[Hg] University o f pressure 15:34:00 [facility] Heart rate 2022-08-21 70 /min University of 15:34:00 [facility] Body height 2022-08-21 162.6 cm University of 15:34:00 [facility] Body weight 2022-08-21 100.699 kg University of 15:34:00 [facility] BMI 2022-08-21 38.11 kg/m2 University of 15:34:00 [facility] Systolic blood 2022-08-16 135 mm[Hg] University of pressure 19:15:00 [facility] Diastolic blood 2022-08-16 96 mm[Hg] University o f pressure 19:15:00 [facility] Heart rate 2022-08-16 74 /min University of 19:15:00 [facility] Respiratory rate 2022-08-16 20 /min University of 19:15:00 [facility] Body height 2022-08-16 162.6 cm University of 19:15:00 [facility] Body weight 2022-08-16 99.791 kg University of 19:15:00 [facility] BMI 2022-08-16 37.76 kg/m2 University of 19:15:00 [facility] Oxygen saturation 2022-08-16 98 /min University in Arterial blood 19:15:00 [facility] by Pulse oximetry [place] Systolic blood 2022-08-15 114 mm[Hg] University of pressure 17:30:00 [facility] Diastolic blood 2022-08-15 79 mm[Hg] University o f pressure 17:30:00 [facility] Heart rate 2022-08-15 81 /min University of 17:30:00 [facility] Body temperature 2022-08-15 37 [place] University of 17:30:00 [facility] Respiratory rate 2022-08-15 18 /min University of 17:30:00 [facility] Body height 2022-08-15 162.6 cm University of 17:30:00 [facility] Body weight 2022-08-15 99.791 kg University of 17:30:00 [facility] BMI 2022-08-15 37.76 kg/m2 University of 17:30:00 [facility] Systolic blood 2022-08-02 132 mm[Hg] University of pressure 19:33:00 [facility] Diastolic blood 2022-08-02 90 mm[Hg] University o f pressure 19:33:00 [facility] Heart rate 2022-08-02 73 /min University of 19:33:00 [facility] Body temperature 2022-08-02 36.61 [place] University of 19:33:00 [facility] Respiratory rate 2022-08-02 18 /min University of 19:33:00 [facility] Body height 2022-08-02 162.6 cm University of 19:33:00 [facility] Body weight 2022-08-02 97.977 kg University of 19:33:00 [facility] BMI 2022-08-02 37.08 kg/m2 University of 19:33:00 [facility] Systolic blood 2022-07-24 130 mm[Hg] University of pressure 15:18:00 [facility] Diastolic blood 2022-07-24 86 mm[Hg] University o f pressure 15:18:00 [facility] Heart rate 2022-07-24 73 /min University of 15:18:00 [facility] Body height 2022-07-24 162.6 cm University of 15:18:00 [facility] Body weight 2022-07-24 100.245 kg University of 15:18:00 [facility] BMI 2022-07-24 37.93 kg/m2 University of 15:18:00 [facility] Oxygen saturation 2022-07-24 98 /min University of in Arterial blood 15:18:00 [facility] by Pulse oximetry Branch Systolic blood 2022-07-18 128 mm[Hg] University of pressure 16:04:00 [facility] Diastolic blood 2022-07-18 86 mm[Hg] University o f pressure 16:04:00 [facility] Heart rate 2022-07-18 83 /min University of 16:04:00 [facility] Body height 2022-07-18 162.6 cm University of 16:04:00 [facility] Body weight 2022-07-18 97.523 kg University of 16:04:00 [facility] BMI 2022-07-18 36.90 kg/m2 University of 16:04:00 [facility] Oxygen saturation 2022-07-18 100 /min University of in Arterial blood 16:04:00 [facility] by Pulse oximetry Branch Systolic blood 2022-07-17 122 mm[Hg] University of pressure 17:07:00 [facility] Diastolic blood 2022-07-17 90 mm[Hg] University o f pressure 17:07:00 [facility] Heart rate 2022-07-17 74 /min University of 17:07:00 [facility] Body temperature 2022-07-17 36.72 [place] University of 17:07:00 [facility] Respiratory rate 2022-07-17 16 /min University of 17:07:00 [facility] Body height 2022-07-17 162.6 cm University of 17:07:00 [facility] Body weight 2022-07-17 97.569 kg University of 17:07:00 [facility] BMI 2022-07-17 36.92 kg/m2 University of 17:07:00 [facility] Oxygen saturation 2022-07-17 98 /min University of in Arterial blood 17:07:00 [facility] by Pulse oximetry Branch Systolic blood 2022-06-30 101 mm[Hg] University of pressure 21:20:00 [facility] Diastolic blood 2022-06-30 70 mm[Hg] University o f pressure 21:20:00 [facility] Heart rate 2022-06-30 76 /min University of 21:20:00 [facility] Respiratory rate 2022-06-30 18 /min University of 21:10:00 [facility] Body temperature 2022-06-30 36.67 [place] University of 20:27:00 [facility] Body height 2022-06-30 162.6 cm University of 20:27:00 [facility] Body weight 2022-06-30 90.719 kg University of 20:27:00 [facility] BMI 2022-06-30 34.33 kg/m2 University of 20:27:00 [facility] Oxygen saturation 2022-06-30 95 /min [facility] in Arterial blood 20:27:00 [facility] Pulse oximetry Branch Systolic blood 2022-06-20 117 mm[Hg] University of pressure 16:23:00 [facility] Diastolic blood 2022-06-20 77 mm[Hg] University o f pressure 16:23:00 [facility] Heart rate 2022-06-20 87 /min University of 16:23:00 [facility] Body temperature 2022-06-20 37 [place] University of 16:23:00 [facility] Respiratory rate 2022-06-20 18 /min University of 16:23:00 [facility] Body height 2022-06-20 162.6 cm University of 16:23:00 [facility] Body weight 2022-06-20 95.709 kg University of 16:23:00 [facility] BMI 2022-06-20 36.22 kg/m2 University of 16:23:00 [facility] Body weight 2022-06-09 91.173 kg University of 15:45:00 [facility] BMI 2022-06-09 34.50 kg/m2 University of 15:45:00 [facility] Systolic blood 2022-05-16 133 mm[Hg] University of pressure 15:31:00 [facility] Diastolic blood 2022-05-16 87 mm[Hg] University o f pressure 15:31:00 [facility] Heart rate 2022-05-16 87 /min University of 15:31:00 [facility] Respiratory rate 2022-05-16 12 /min University of 15:31:00 [facility] Body height 2022-05-16 162.6 cm University of 15:31:00 [facility] Body weight 2022-05-16 91.173 kg [facility] 15:31:00 [facility] BMI 2022-05-16 34.50 kg/m2 [facility] 15:31:00 [facility] Oxygen saturation 2022-05-16 99 /min [facility] in Arterial blood 15:31:00 [facility] by Pulse oximetry [place] Procedures Procedure Date / Time Performing Source Performed Clinician FLU VACC ([id number]), 6 MO-64 YRS, 2023-06-06 [facility] .5ML, IM, QUAD (FLUCELVAX) 18:56:21 Taylor English [facility] PNEUMOCOCCAL VACCINE, 23-VALENT 2023-06-06 [facility] (PNEUMOVAX) 18:56:20 Taylor English [facility] FL TIME OR (NON-REPORTABLE) 2023-05-11 Curtis Morley ersity of 19:01:23 [facility] POCT GLUCOSE (AUTOMATED) 2023-05-11 Curtis Morley [facility] ity of 18:11:00 [facility] RPR (DX) W/REFL TITER 2023-05-02 [facility] of AND$CONFIRMATORY TESTING-Q 18:53:00 [facility] POCT TEST 2023-05-02 [facility] o f 00:00:00 [facility] SURGICAL PATHOLOGY EXAM 2023-04-09 Norbert Diazi ty of 14:05:00 [facility] ESOPHAGOGASTRODUODENOSCOPY 2023-04-09 Norbert Diaz rsity of 13:44:00 [facility] EGD (ENDO) 2023-04-09 [facility] 13:39:47 Taylor English [facility] EGD (ENDO) 2023-04-09 [facility] of 13:39:47 Taylor English [facility] POCT GLUCOSE (AUTOMATED) 2023-04-09 Norbert Diaz ity of 13:03:00 [facility] POCT GLUCOSE (AUTOMATED) 2023-04-09 Norbert Diaz ity of 13:03:00 [facility] ASSIGNMENT OF BENEFITS 2023-04-09 Doctor [facility] of 12:30:17 Unassigned, No [facility] POCT TEST 2023-04-09 [facility] o f 00:00:00 [facility] POCT TEST 2023-04-09 [facility] o f 00:00:00 [facility] DME/SUPPLY JUSTIFICATION 2023-03-19 Doctor [facility] ity of 05:01:00 Unassigned, No [facility] PATIENT QUESTIONNAIRE 2023-02-18 [facility] of 05:01:00 Unassigned, No [facility] DME/SUPPLY JUSTIFICATION 2023-01-30 Doctor [facility] ity of 05:01:00 Unassigned, No [facility] COMP. METABOLIC PANEL ([id number]) 2023-01-[address] [facility] Harjinder iversity of 15:40:00 [facility] SEDIMENTATION RATE 2023-01-09 [facility] of 15:40:00 [facility] CBC WITH DIFF 2023-01-09 [facility] of 15:40:00 [facility] VITAMIN D, 25-OH 2023-01-09 [facility] of 15:40:00 [facility] ANTICARDIOLIPIN ANTIBODIES 2023-01-01 [facility] rsity of 15:54:00 [facility] ANTI-B2 GLYCOPROTEIN I AB 2023-01-01 [facility] sity of 15:54:00 [facility] DISCLOSURE AND CONSENT, MEDICAL 2023-01-01 [facility] of AND SURGICAL PROCEDURES 05:01:00 Unassigned, No [facility] FL TIME OR (NON-REPORTABLE) 2022-12-11 Peyman [facility] ersity of 15:57:25 [facility] POCT GLUCOSE (AUTOMATED) 2022-12-11 Curtis Morley [facility] ity of 15:06:00 [facility] POCT TEST 2022-12-11 Peyman [facility] o f 14:45:00 [facility] POCT SARS-COV-2 ANTIGEN (BINAX 2022-11-29 Ismael Verdin [facility] of NOW) 17:25:00 Taylor English [facility] POCT MOLECULAR STREP 2022-11-29 Ashish Verdin of 17:07:00 Taylor English [facility] EMG/NCV 2022-10-26 Skyler Ferrari [place] of 05:01:00 [facility] AUTHORIZATION TO RELEASE PHI TO 2022-10-18 [facility] 06:01:00 Unassigned, No [facility] FL TIME OR (NON-REPORTABLE) 2022-09-15 Curtis Morley [facility] ersity of 17:38:14 [facility] POCT GLUCOSE (AUTOMATED) 2022-09-15 Peyman [facility] ity of 16:38:00 [facility] POCT TEST 2022-09-15 Peyman [facility] o f 16:30:00 [facility] CONSENT/REFUSAL FOR DIAGNOSIS AND 2022-09-12 [facility] 15:19:35 Unassigned, No [facility] MISCELLANEOUS SEND OUT TEST 2022-08-21 [facility] ersity of 16:05:00 [facility] DIAGNOSTIC MANAGEMENT TEAM; 2022-08-21 [facility] ersity of SPECIAL COAGULATION EVALUATION 16:05:00 [facility] ANTIPHOSPHOLIPID ANTIBODY TESTS 2022-08-21 [facility] of AND EVALUATION 16:05:00 [facility] ANTIPHOSPHOLIPID ANTIBODY 2022-08-21 [facility] sity of EVALUATION-LT BLUE 16:05:00 [facility] ANTICARDIOLIPIN ANTIBODIES 2022-08-21 [facility] rsity of 16:05:00 [facility] ANTI-B2 GLYCOPROTEIN I AB 2022-08-21 [facility] sity of 16:05:00 [facility] ANTIPHOSPHOLIPID ANTIBODY 2022-08-21 [facility] sity of EVALUATION-SST 16:05:00 [facility] MR LUMBAR SPINE WO CONTRAST 2022-08-16 Skyler Ferrari [facility] ersity of 20:31:57 [facility] US PELVIS COMPLETE WITH 2022-07-26 [facility] of TRANSVAGINAL 15:39:56 [facility] POCT TEST 2022-07-17 [facility] o f 00:00:00 [facility] FL TIME OR (NON-REPORTABLE) 2022-06-30 Curtis Morley [facility] ersity of 21:00:00 [facility] POCT TEST 2022-06-30 Peyman [facility] o f 20:15:00 [facility] POCT TEST 2022-06-20 AdArgentina wetzel [place] o f 00:00:00 [facility] DISCLOSURE AND CONSENT, MEDICAL 2022-06-16 [facility] of AND SURGICAL PROCEDURES 05:01:00 Unassigned, No [place] [facility] d[facility] Name Branch Encounters Start End Encounter Admission Attending Care Care Encounter Source Date/Time Date/Time Type Type Clinicians Facility Department ID 2021-11-08 Outpatient R MARILU [facility] CASSANDRA [id number] Univers 15:18:20 AZALIA [facility] 2021-06-13 Emergency [facility] [id number] Univers 16:13:46 [facility] 2021-06-12 Outpatient MARILU [facility] CASSANDRA [id number] Univers 19:13:39 AZALIA [facility] 2021-06-12 Outpatient PEYMAN [facility] [id number] Univers 02:02:49 CURTIS [facility] 2021-06-10 Outpatient R NORBERT DIAZ [facility] GIE [id number] Univers 22:07:19 NORBERT DIAZ i [facility] 2023-10-15 2023-10-15 Outpatient R RICHA DOMINGUEZ [facility] [id number] Univers 14:00:00 14:00:00 RICHA DOMINGUEZ [facility] 2023-07-20 2023-07-20 Outpatient R JOSE DELORES [facility] U [facility] [id number] Univers 14:30:00 14:30:00 JOSE DELORES [facility] 2023-07-20 2023-07-20 Outpatient R DILCIA GARCIASOL [facility] U [facility] [id number] Univers 14:30:00 14:30:00 JOSE DELORES [facility] 2023-07-16 2023-07-16 Outpatient R RICHA DOMINGUEZ [facility] [id number] Univers 13:30:00 13:30:00 RICHA DOMINGUEZ ity of [facility] 2023-06-28 2023-06-28 Refill Lambert [facility] 1.2.840.114 [id number] Univers 00:00:00 00:00:00 , Taylor HEALTH 350.1.13.10 ity of [place] MACDONALD 4.2.7.2.686 [place] KEITH?BLEA [id number] [facility] [address] MEDICAL OFFICE BUILDING 2023-06-25 2023-06-25 Outpatient R VERO [facility] [id number] Univers 13:30:00 15:07:28 BETH ramirez o f [facility] 2023-06-25 2023-06-25 Office [facility] 1.2.840.114 [id number] Univers 13:30:00 15:07:28 Visit Beth WHEELER 350.1.13.10 ity of [place].2.7.2.686 [place] [id number] [facility] [address] DI[facility]ETES CLINIC 2023-06-25 2023-06-25 Refill Lambert [facility] 1.2.840.114 10 [id number] Univers 00:00:00 00:00:00 , [facility] 350.1.13.10 ity of [place] MACDONALD 4.2.7.2.686 [place] KEITH?BLEA [phone] [facility] [address] MEDICAL OFFICE BUILDING 2023-06-15 2023-06-15 Refill Vero [facility] 1.2.840.114 [id number] Univers 00:00:00 00:00:00 Beth WHEELER 350.1.13.10 ity of [place] 4.2.7.2.686 [place] [id number] [facility] [address] DI[facility]ES CLINIC 2023-06-14 2023-06-14 Refill Richa Dominguez [facility] 1.2.840.114 [id number] Univers 00:00:00 00:00:00 HEALTH 350.1.13.10 it y of [place] 4.2.7.2.686 [place] KEITH?BLEA [id number] [facility] [address] MEDICAL OFFICE BUILDING 2023-06-13 2023-06-13 Patient Richa Dominguez [facility] 1.2.840.114 [id number] Univers 00:00:00 00:00:00 Secure [facility] HEALTH 350.1.13.10 ity of [facility] 4.2.7.2.686 [place] KEITH?BLEA [id number] [facility] [address] [facility] OFFICE [facility] 2023-06-11 2023-06-11 Outpatient R RICHA DOMINGUEZ [facility] [id number] Univers 13:30:00 14:13:46 RICHA DOMINGUEZ ity of [facility] 2023-06-11 2023-06-11 Office Richa Dominguez [facility] 1.2.840.114 [id number] Univers 13:30:00 14:13:46 Visit HEALTH 350.1.13.10 it y of [place] 4.2.7.2.686 [place] KEITH?BLEA [id number] [facility] [address] [facility] OFFICE [facility] 2023-06-06 2023-06-06 Patient [facility], [facility] 1.2.840.1 14 [id number] Univers 14:15:00 14:30:00 Visit Taylor Verdin HEALTH 350.1 .13.10 ity of [place] 4.2.7.2.686 [place] KEITH?BLEA [id number] Ma krystal [facility] [address] [facility] OFFICE [facility] 2023-06-06 2023-06-06 Outpatient R LAMBERT [facility] [id number] Univers 13:40:00 14:09:23 , TAYLOR it y of [facility] 2023-06-06 2023-06-06 Office [facility] 1.2.840.114 10 [id number] Univers 13:40:00 14:09:23 Visit , Taylor HEALTH 350.1.13.10 ity of M [place] 4.2.7.2.686 [place] KEITH?BLEA [id number] Ma krystal [facility] [address] [facility] OFFICE [facility] 2023-05-31 2023-05-31 [facility] 1.2.840.114 10 [id number] Univers 00:00:00 00:00:00 , GLO 350.1.13.10 ity of [place] MACDONALD 4.2.7.2.686 [place] KEITH?BLEA [id number] Ma krystal ALEJANDRA [address] [place] [address] MEDICAL OFFICE BUILDING 2023-05-22 2023-05-22 Patient Doctor [facility] ZAMBRANO 1.2.143.518 [id number] Univers 00:00:00 00:00:00 Secure Msg Unassigned, CESIA 350.1.13.10 ity of [place] WOMEN'S 4.2.7.2.[place] [id number] [facility] [address] 2023-05-15 2023-05-15 Telephone [facility] 1.2.592.846 [id number] [facility] 00:00:00 00:00:00 Curtis MULTISPEC 350.1.13.10 ity of [place] 4.2.7.2.686 [place] [id number] [facility] [address] [facility] CLINIC 2023-05-15 2023-05-15 Telephone [facility] 1.2.687.794 [id number] Univers 00:00:00 00:00:00 Curtis MULTISPEC 350.1.13.10 ity of [place] 4.2.7.2.686 [place] [id number] [facility] [address] DI[facility]ES CLINIC 2023-05-11 2023-05-11 [facility] 1.2.840.114 [id number] Univers 13:16:47 23:59:00 Encounter Curtis MULTISPEC 350.1.13.10 ity of [place] 4.2.7.2.686 [place] [id number] [facility] [address] DIAB[facility]ES CLINIC 2023-05-11 2023-05-11 Office [facility] 1.2.840.114 [id number] Univers 13:30:00 14:00:00 Visit Curtis MULTISPEC 350.1.13.10 ity of [place] 4.2.7.2.686 [place] [id number] [facility] [address] DI[facility]ES CLINIC 2023-05-11 2023-05-11 Outpatient R [facility] [id number] Univers 13:30:00 13:30:00 CURTIS itcamryn [facility] 2023-05-09 2023-05-09 Telephone Peyman [facility] 1.2.219.987 [id number] Univers 00:00:00 00:00:00 Curtis MULTISPEC 350.1.13.10 ity of [place] IALTY 4.2.7.2.686 [facility] [place] [id number] [facility] AND [address] DIABETES CLINIC 2023-05-09 2023-05-09 Patient Doctor [facility] 1.2.840.114 [id number] Univers 00:00:00 00:00:00 Secure Msg Unassigned, MULTISPEC 350.1.13.10 ity of [place] HILARYCamryn 4.2.7.2.686 [facility] [place] [id number] [facility] AND [address] DIABETES CLINIC 2023-05-08 2023-05-08 Telephone Bruce [facility] 1.2.840.11 4 [id number] Univers 00:00:00 00:00:00 Ez BEE 350.1.13.10 it y of WOMEN'S 4.2.7.2.686 [facility] [id number] [address] 2023-05-07 2023-05-07 Outpatient R DARINEL [facility] [id number] Univers 13:30:00 13:30:00 ELDER guzmán [facility] 2023-05-05 2023-05-05 Solis Verdin [facility] 1.2.840.114 10 [id number] Univers 00:00:00 00:00:00 , [facility] 350.1.13.10 ity of [place] MACDONALD 4.2.7.2.686 [place] KEITH?BLEA [phone] Ma krystal MCKEON [address] [place] [address] MEDICAL OFFICE BUILDING 2023-05-02 2023-05-02 Outpatient R EZ PALACIO [facility] B [id number] Univers 13:00:00 13:28:05 EZ PALACIO [facility] 2023-05-02 2023-05-02 [facility] 1.2.840.114 [id number] Univers 13:00:00 13:28:05 Visit Ez BEE 350.1.13.10 it y of WOMEN'S 4.2.7.2.686 [place] [facility] [id number] [facility] [address] 2023-05-02 2023-05-02 Orders JAVIER Palacio 1.2.840.114 10 [id number] Univers 00:00:00 00:00:00 Only Ez STOVER 350.1.13.10 it y of HOSPITAL 4.2.7.2.686 [place] as [id number] [facility] [address] 2023-05-01 2023-05-01 Refill Richa Dominguez [facility] 1.2.840.114 [id number] Univers 00:00:00 00:00:00 HEALTH 350.1.13.10 it y of [place] 4.2.7.2.686 [place] KEITH?BLEA [id number] Ma krystal MCKEON [address] MEDICAL OFFICE BUILDING 2023-04-09 2023-04-09 Outpatient R NORBERT DIAZ [facility] 1 [id number] Univers 07:30:00 10:06:00 NORBERT DIAZ [facility] 2023-04-09 2023-04-09 Hospital [facility] 1.2.840.114 [id number] Univers 07:30:00 10:06:00 Encounter Norbert Vidal [facility] 350.1.13.10 ity of [place] 4.2.7.2.686 [facility] [phone] [address] ([facility]) 2023-04-09 2023-04-09 Anesthesia Yvonne Mehta [facility] 1.2.84 0.114 [id number] Univers 08:54:00 09:16:00 Event Tacos Roman SPECIALTY 350.1.13.10 ity of CARE 4.2.7.2.686 [facility] AT [phone] Ma krystal RAMIREZ [address] [place] [address] 2023-04-09 2023-04-09 Surgery [facility] 1.2.840.114 [id number] Univers 08:00:00 08:30:00 Norbert Vidal SPECIALTY 350.1.13.10 ity of C[place] 4.2.7.2.686 [place] AT [phone] Ma krystal RAMIREZ [address] [facility] 2023-04-09 2023-04-09 Orders Doctor JAVIER 1.2.840.114 [id number] Univers 00:00:00 00:00:00 Only Unassigned, JOLANTA 350.1.13.10 ity of [place] HOSPITAL 4.2.7.2.686 [place] as [id number] [facility] [address] 2023-04-07 2023-04-07 Refill Jeremiah [facility] 1.2.840.114 10 [id number] Univers 00:00:00 00:00:00 , Taylor n[address] 350.1.13.10 ity of [place] ALBARADOSOHEILA 4.2.7.2.686 [place] KEITH?BLEA [id number] Ma liliolena MCKEON [address] MEDICAL OFFICE BUILDING 2023-04-05 2023-04-05 Outpatient R EAMON CARRASCO [facility] [id number] Univers 14:00:00 15:28:11 EAMON CARRASCO ity of [facility] 2023-04-05 2023-04-05 Office Luna IATANYA 1.2.840.114 [id number] Univers 14:00:00 15:28:11 Visit Eamon WHEELER 350.1.13.10 ity of [place] 4.2.7.2.686 [place] [id number] [address] DIABETES CLINIC 2023-04-05 2023-04-05 Telephone Vero [facility] 1.2.112.823 [id number] Univers 00:00:00 00:00:00 Beth WHEELER 350.1.13.10 ity of [place] 4.2.7.2.686 [place] [id number] [facility] [address] DIABETES CLINIC 2023-04-02 2023-04-02 Refill Lambert [facility] 1.2.840.114 10 [id number] Univers 00:00:00 00:00:00 , Taylor [facility] 350.1.13.10 ity of [place] MACDONALD 4.2.7.2.686 [place] as KEITH?BLEA [phone] Ma krystal MCKEON [address] [place] [address] MEDICAL OFFICE BUILDING 2023-03-30 2023-03-30 Telephone Luca [facility] 1.2.840.114 [id number] Univers 00:00:00 00:00:00 MULTISPEC 350.1.13.10 ity of IALTY 4.2.7.2.686 [place] [id number] [address] DIABETES CLINIC 2023-03-29 2023-03-29 Office Luca [facility] 1.2.840.114 [id number] Univers 14:30:00 15:00:00 Visit MULTISPEC 350.1.13.10 ity of IALTY 4.2.7.2.686 [facility] [id number] [address] DIABETES [facility] 2023-03-29 2023-03-29 Outpatient R LUCA [facility] [id number] Univers 14:30:00 14:30:00 ity of [facility] 2023-03-21 2023-03-21 [facility] [id number] Univers 12:30:00 12:30:00 HOLLY ity of [facility] 2023-03-19 2023-03-19 Telephone [facility] 1.2.561.104 [id number] Univers 00:00:00 00:00:00 Beth WHEELER 350.1.13.10 ity of IALTY 4.2.7.2.686 [facility] [id number] [address] DIABETES CLINIC 2023-03-19 2023-03-19 Orders Doctor JAVIER 1.2.840.114 [id number] Univers 00:00:00 00:00:00 Only Unassigned, JOLANTA 350.1.13.10 ity of [place] HOSPITAL 4.2.7.2.686 [place] as [id number] [address] 2023-03-14 2023-03-14 Telephone [facility] 1.2.656.311 [id number] Univers 00:00:00 00:00:00 Beth RAHMANPEC 350.1.13.10 ity of IALTY 4.2.7.2.686 [place] [id number] [facility] [address] DIABETES CLINIC 2023-03-13 2023-03-13 Outpatient R VERO [facility] [id number] Univers 14:30:00 15:27:42 BETH itcamryn o f [facility] 2023-03-13 2023-03-13 Office [facility] 1.2.840.114 [id number] Univers 14:30:00 15:27:42 Visit Beth WHEELER 350.1.13.10 ity of IAL[place] 4.2.7.2.686 [place] [id number] [address] DIABETES CLINIC 2023-03-12 2023-03-12 Outpatient R NAINA SEGOVIA [facility] [id number] Univers 10:00:00 10:00:00 ity of [facility] 2023-03-11 2023-03-11 [facility]is [facility] 1.2.840.114 [id number] Univers 00:00:00 00:00:00 [facility] 350.1.13.10 it y of MEDICINE 4.2.7.2.686 [place] CLINIC - [id number] [address] 2023-03-06 2023-03-06 Outpatient R LAMBERT [facility] [id number] Univers 15:20:00 16:11:30 , TAYLOR it y of [facility] 2023-03-06 2023-03-06 Office [facility] 1.2.840.114 10 [id number] Univers 15:20:00 16:11:30 Visit , Taylor nWay 350.1.13.10 ity of [place]AL[place] 4.2.7.2.686 [place] as KEITH?BLEA [id number] Ma krystal ALEJANDRA [address] [place] [address] MEDICAL OFFICE BUILDING 2023-03-06 2023-03-06 [facility] 1.2.840.114 [id number] Univers 00:00:00 00:00:00 Raul HEALTH 350.1.13.10 it y of [place] 4.2.7.2.686 [place] as KEITH?BLEA [id number] Ma liliolena KATEYALEJANDRA [address] MEDICAL OFFICE [facility] 2023-02-25 2023-02-25 Refjo[facility]ann [facility] 1.2.840.114 [id number] Univers 00:00:00 00:00:00 Radha FAMILY 350.1.13.10 it y of MEDICINE 4.2.7.2.686 [place] CLINIC - [id number] [address] 2023-02-19 2023-02-19 Outpatient R RICHARD [facility] [id number] Univers 14:15:00 14:26:26 DUNCAN guzmán [facility] 2023-02-19 2023-02-19 Office [facility] 1.2.235.120 [id number] Univers 14:15:00 14:26:26 Visit [facility] 350.1.13.10 it y of [place] 4.2.7.2.686 [place] as KEITH?BLEA [id number] Ma liliolena [place] [address] MEDICAL OFFICE [facility] 2023-02-18 2023-02-18 Orders Doctor JAVIER 1.2.840.114 [id number] Univers 00:00:00 00:00:00 Only Unassigned, JOLANTA 350.1.13.10 ity of [place] [facility] 4.2.7.2.686 [place] as [id number] [address] 2023-02-12 2023-02-12 Outpatient R RICHA DOMINGUEZ [facility] [id number] Univers 09:30:00 09:30:00 RICHA DOMINGUEZ [facility] 2023-02-02 2023-02-02 [facility] 1.2.840.114 [id number] Univers 00:00:00 00:00:00 Radha FAMILY 350.1.13.10 it y of MEDICINE 4.2.7.2.686 [place] CLINIC - [id number] [address] 2023-01-30 2023-01-30 Outpatient R PEDRO PABLO [facility] [id number] Univers 15:00:00 15:28:38 BIA guzmán [facility] 2023-01-30 2023-01-30 Office [facility] 1.2.840.114 [id number] Univers 15:00:00 15:28:38 Visit Bia [facility] 350.1.13.10 it y of [place] 4.2.7.2.686 [place] as KEITH?BLEA [phone] [facility] [address] MEDICAL OFFICE BUILDING 2023-01-30 2023-01-30 Refjo-ann Morley [facility] 1.2.840.114 [id number] Univers 00:00:00 00:00:00 Curtis MULTISPEC 350.1.13.10 ity of [place] 4.2.7.2.686 [place] [id number] [facility] [address] DIABETES CLINIC 2023-01-30 2023-01-30 Orders Doctor JAVIER 1.2.840.114 [id number] Univers 00:00:00 00:00:00 Only Unassigned, JOLANTA 350.1.13.10 ity of [place] [facility] 4.2.7.2.686 [place] as [id number] [facility] [address] 2023-01-29 2023-01-29 Refill [facility] 1.2.840.114 [id number] Univers 00:00:00 00:00:00 Radha FAMILY 350.1.13.10 it y of MEDICINE 4.2.7.2.686 [place] CLINIC - [id number] [address] 2023-01-28 2023-01-28 Telephone Richa Dominguez [facility] 1.2.277.943 [id number] Univers 00:00:00 00:00:00 HEALTH 350.1.13.10 it y of [facility] 4.2.7.2.686 [place] as KEITH?BLEA [id number] [facility] [address] MEDICAL OFFICE BUILDING 2023-01-26 2023-01-26 Telephone Naina Segovia [facility] 1.2.840.114 [id number] Univers 00:00:00 00:00:00 MULTISPEC 350.1.13.10 ity of [place] 4.2.7.2.686 [place] [id number] [facility] [address] DIABETES CLINIC 2023-01-25 2023-01-25 Refill Richa Dominguez [facility] 1.2.840.114 [id number] Univers 00:00:00 00:00:00 HEALTH 350.1.13.10 it y of [place] 4.2.7.2.686 [place] as KEITH?BLEA [id number] [facility] [address] MEDICAL OFFICE BUILDING 2023-01-25 2023-01-25 Patient Naina Segovia [facility] 1.2.840.114 [id number] Univers 00:00:00 00:00:00 Secure Msg MULTISPEC 350.1.13.10 ity of [place] 4.2.7.2.686 [place] [id number] [facility] AND JAVIER [address] DIABETES CLINIC 2023-01-24 2023-01-24 Refill Trinidad [facility] 1.2.840.114 [id number] Univers 00:00:00 00:00:00 Radha FAMILY 350.1.13.10 it y of MEDICINE 4.2.7.2.686 [place] CLINIC - [id number] [address] 2023-01-24 2023-01-24 Telephone Richa Domingeuz [facility] 1.2.889.009 [id number] Univers 00:00:00 00:00:00 HEALTH 350.1.13.10 it y of [place] 4.2.7.2.686 [place] as KEITH?BLEA [id number] [facility] [address] MEDICAL OFFICE [facility] 2023-01-24 2023-01-24 Refill Lambert [facility] 1.2.840.114 [id number] Univers 00:00:00 00:00:00 , Taylor n[address] 350.1.13.10 ity of [place] 4.2.7.2.686 [place] KEITH?BLEA [id number] [address] MEDICAL OFFICE BUILDING 2023-01-24 2023-01-24 Refill JAVIER Bee 1.2.840.114 [id number] Univers 00:00:00 00:00:00 Sabrinaleón GUY 350.1.13.10 it y of [facility] 4.2.7.2.686 [place] as [id number] [address] 2023-01-19 2023-01-19 Outpatient R LAMBERT [facility] [id number] Univers 14:40:00 15:02:51 , TAYLOR it y of [facility] 2023-01-19 2023-01-19 Office [facility] 1.2.840.114 [id number] Univers 14:40:00 15:02:51 Visit , Taylor JASON 350.1.13.10 ity of [place] 4.2.7.2.686 [place] KEITH?BLEA [id number] [address] MEDICAL OFFICE BUILDING 2023-01-16 2023-01-16 Telephone Naina Segovia [facility] 1.2.840.114 [id number] Univers 00:00:00 00:00:00 MULTISPEC 350.1.13.10 [place] [id number] [facility] [address] [facility] 2023-01-10 2023-01-10 Telephone Bruce [facility] 1.2.840.11 4 [id number] Univers 00:00:00 00:00:00 Ez BEE 350.1.13.10 it [place] [phone] [facility] [address] 2023-01-09 2023-01-09 Patient Observer Vtc-Lab [facility] 1.2.840.114 [id number] Univers 10:45:00 11:00:00 Visit Harjinder James MULTISPEC 350.1.1 3.10 [place] [id number] [facility] [address] [facility] 2023-01-09 2023-01-09 Outpatient R JACOB [facility] [id number] Univers 09:40:00 10:34:43 HARJINDER ity of [facility] 2023-01-09 2023-01-09 [facility] 1.2.840.114 [id number] Univers 09:40:00 10:34:43 Visit Harjinder MULTISPEC 350.1.13.10 ity [place] [id number] [facility] AND [address] [facility] 2023-01-05 2023-01-05 Telephone Naina Segovia [facility] 1.2.840.114 [id number] Univers 00:00:00 00:00:00 MULTISPEC 350.1.13.10 [place] [id number] [facility] AND [address] [facility] 2023-01-04 2023-01-04 [facility] 1.2.840.114 [id number] Univers 00:00:00 00:00:00 Secure Msg Ez BEE 350.1.13.10 ity of WOMEN'S 4.2.7.2.686 [facility] [phone] [place] [address] [address] 2023-01-01 2023-01-01 Outpatient Annalee TENA [facility] [id number] Univers 13:30:00 14:22:24 ELDER guzmán [facility] 2023-01-01 2023-01-01 Office Vanda Morales [facility] 1.2.840.114 1 [id number] Univers 13:30:00 14:22:24 Visit Elder Tena 350.1.13 .10 ity of CARE 4.2.7.2.686 [facility] [place] AT [phone] Ma krystal RAMIREZ [address] [place] [address] 2023-01-01 2023-01-01 Patient Observer Lab, Ang - Ish [facility] 1.2.840.1 14 [id number] Univers 10:45:00 11:46:35 Visit Bruce [facility] 350.1.13.1 0 ity of [place] 4.2.7.2.686 [place] as KEITH?BLEA [id number] Ma krystal MCKEON [address] MEDICAL OFFICE BUILDING 2023-01-01 2023-01-01 Office Bruce [facility] 1.2.840.114 [id number] Univers 10:00:00 10:26:07 Visit Ez BEE 350.1.13.10 it y of WOMEN'S 4.2.7.2.686 [place] [facility] s [facility] [phone] [facility] CLINIC [address] 2023-01-01 2023-01-01 Orders Doctor JAVIER 1.2.840.114 [id number] Univers 00:00:00 00:00:00 Only Unassigned, JOLANTA 350.1.13.10 ity of [place] [facility] 4.2.7.2.686 [place] [id number] [facility] [address] 2022-12-26 2022-12-26 Outpatient R EZ PALACIO [facility] B [id number] Univers 11:30:00 11:30:00 EZ PALACIO [facility] 2022-12-26 2022-12-26 Telephone [facility] 1.2.293.251 [id number] [id number] Univers 00:00:00 00:00:00 Radha SWEENEY 350.1.13.10 it y of MEDICINE 4.2.7.2.686 [place] CLINIC - [id number] [address] 2022-12-11 2022-12-11 [facility] [id number] Univers 10:04:30 23:59:00 CURTIS guzmán [facility] 2022-12-11 2022-12-11 [facility] 1.2.840.114 [id number] Univers 10:04:30 23:59:00 Encounter Curtis WHEELER 350.1.13.10 ity of [place] 4.2.7.2.686 [facility] [id number] [facility] JAVIER [address] [facility] 2022-12-11 2022-12-11 Office [facility] 1.2.840.114 [id number] Univers 10:30:00 11:45:55 Visit Curtis WHEELER 350.1.13.10 ity of [place] 4.2.7.2.686 [facility] s [place] [id number] [facility] AND JAVIER [address] [facility]IC 2022-12-11 2022-12-11 Outpatient R RICHA DOMINGUEZ [facility] [id number] Univers 10:00:00 10:00:00 RICHA DOMINGUEZ [facility] 2022-12-11 2022-12-11 Refill [facility] 1.2.840.114 [id number] Univers 00:00:00 00:00:00 Radha FAMILY 350.1.13.10 it y of MEDICINE 4.2.7.2.686 [place] CL[place]IC - [id number] [address] 2022-12-07 2022-12-07 Telephone [facility] 1.2.935.523 [id number] [id number] Univers 00:00:00 00:00:00 Curtis MULTISPEC 350.1.13.10 ity of [place] RICHARDCamryn [place] [id number] [address] [facility]ABETES CLINIC 2022-12-07 2022-12-07 Patient Doctor [facility] 1.2.840.114 [id number] Univers 00:00:00 00:00:00 Secure Msg Unassigned, PRIMARY 350.1.13.10 ity of [place] 4.2.7.2.686 [place] [id number] Ma dical [address] 2022-12-06 2022-12-06 Telephone [facility] 1.2.840.114 102 [id number] Univers 00:00:00 00:00:00 Skyler Gene PRIMARY 350.1.13.10 ity of CARE 4.2.7.2.686 [place] [id number] Ma dical [address] 2022-12-06 2022-12-06 Patient [facility] 1.2.840.114 [id number] Univers 00:00:00 00:00:00 Secure Msg Skyler Gene PRIMARY 350.1.13.10 ity of C[place] 4.2.7.2.686 [place] [id number] Ma dical [address] 2022-12-05 2022-12-05 Telephone [facility] 1.2.274.435 6085 [id number] Univers 00:00:00 00:00:00 Radah FAMILY 350.1.13.10 it y of MEDICINE 4.2.7.2.686 [place] CL[place]IC - [phone] [address] 2022-12-05 2022-12-05 Refill [facility] 1.2.840.114 10 [id number] Univers 00:00:00 00:00:00 , Taylor HEALTH 350.1.13.10 ity of M [place] 4.2.7.2.686 [place] KEITH?BLEA [id number] [address] MEDICAL OFFICE [facility] 2022-12-05 2022-12-05 Telephone Abbey, [facility] 1.2.840.114 102 [id number] Univers 00:00:00 00:00:[address] [facility] HEALTH 350.1.13.10 ity of [place] 4.2.7.2.686 [place] KEITH?BLEA [id number] [address] OFFICE [facility] 2022-12-05 2022-12-05 Telephone Abbey, [facility] 1.2.840.114 102 [id number] Univers 00:00:00 00:00:[address] [facility] HEALTH 350.1.13.10 ity of [place] 4.2.7.2.686 [place] KEITH?BLEA [id number] [address] OFFICE [facility] 2022-11-30 2022-11-30 Outpatient R [facility] [id number] Univers 15:00:00 15:00:00 , TAYLOR it y of [facility] 2022-11-29 2022-11-29 Outpatient R [facility] [id number] Univers 11:30:00 12:34:48 , TAYLOR it y of [facility] 2022-11-29 2022-11-29 Office [facility] 1.2.840.114 [id number] Univers 11:30:00 12:34:48 Visit , Taylor HEALTH 350.1.13.10 ity of M [place] 4.2.7.2.686 [place] KEITH?BLEA [id number] [address] MEDICAL OFFICE [facility] 2022-11-29 2022-11-29 Telephone Naina Segovia [facility] 1.2.840.114 102 [id number] Univers 00:00:00 00:00:00 MULTISPEC 350.1.13.10 ity of [place] 4.2.7.2.686 [place] [id number] [address] DIABETES CLINIC 2022-11-28 2022-11-28 Case Naina Segovia [facility] 1.2.840.114 [id number] Univers 00:00:00 00:00:00 Management MULTISPEC 350.1.13.10 ity of [place] 4.2.7.2.686 [place] [id number] [address] DIABETES CLINIC 2022-11-28 2022-11-28 Patient Naina Segovia [facility] 1.2.840.114 [id number] Univers 00:00:00 00:00:00 Secure Msg MULTISPEC 350.1.13.10 ity of [place] 4.2.7.2.686 [place] [id number] [address] DIABETES CLINIC 2022-11-04 2022-11-04 [facility]is [facility] 1.2.840.114 [id number] Univers 00:00:00 00:00:00 Holly A HEALTH 350.1.13.10 i ty of [facility] 4.2.7.2.686 [place] KEITH?BLEA [phone] [address] MEDICAL OFFICE BUILDING 2022-11-02 2022-11-02 Solis [facility] 1.2.840.114 [id number] Univers 00:00:00 00:00:00 Radha FAMILY 350.1.13.10 it y of MEDICINE 4.2.7.2.686 [place] CLINIC - [id number] [address] 2022-10-26 2022-10-26 Outpatient R SHAHRZAD [facility] [id number] Univers 13:25:59 23:59:00 MEGHAN ity of [facility] 2022-10-26 2022-10-26 [facility] 1.2.787.639 [id number] [id number] Univers 13:25:59 23:59:00 Encounter Meghan HEALTH 350.1.13.10 ity of [place] 4.2.7.2.686 [place] [id number] [facility] [address] OFFICE [facility] 2022-10-26 2022-10-26 Refjo-ann [facility] 1.2.840.114 [id number] 315 Univers 00:00:00 00:00:00 Holly A HEALTH 350.1.13.10 i ty of [facility] 4.2.7.2.686 [place] KEITH?BLEA [phone] [facility] 044 [facility] OFFICE [facility] 2022-10-26 2022-10-26 Refill JAVIER Trinidad 1.2.840.114 [id number] Univers 00:00:00 00:00:00 Radha JOLANTA 350.1.13.10 it y of [facility] 4.2.7.2.686 [place] [id number] [address] 2022-10-26 2022-10-26 Refjo[facility]ann [facility] 1.2.840.114 [id number] Univers 00:00:00 00:00:00 Radha FAMILY 350.1.13.10 it y of MEDICINE 4.2.7.2.686 [place] CLINIC - [id number] [address] 2022-10-26 2022-10-26 RefRicha Ahmadi [facility] 1.2.840.114 [id number] Univers 00:00:00 00:00:00 HEALTH 350.1.13.10 it y of [facility] 4.2.7.2.686 [place] KEITH?BLEA [id number] [facility] 220 [facility] OFFICE [facility] 2022-10-26 2022-10-26 Refjo[facility]ann [facility] 1.2.840.114 [id number] Univers 00:00:00 00:00:00 Radha FAMILY 350.1.13.10 it y of MEDICINE 4.2.7.2.686 [place] CLINIC - [phone] [address] 2022-10-26 2022-10-26 RefRicha Ahmadi [facility] 1.2.840.114 [id number] Univers 00:00:00 00:00:00 HEALTH 350.1.13.10 it y of [place] 4.2.7.2.686 [place] KEITH?BLEA [id number] Ma krystal MCKEON [address] MEDICAL OFFICE [facility] 2022-10-26 2022-10-26 Telephone [facility] 1.2.647.369 [id number] [id number] Univers 00:00:00 00:00:00 Holly A HEALTH 350.1.13.10 i ty of [place] 4.2.7.2.686 [place] KEITH?BLEA [phone] Ma krystal MCKEON 044 [facility] OFFICE [facility] 2022-10-26 2022-10-26 Refjo-ann [facility] 1.2.840.114 [id number] Univers 00:00:00 00:00:00 Curtis MULTISPEC 350.1.13.10 ity of [place].2.7.2.686 [place] [id number] [facility] AND MASSENA [address] [facility]IC 2022-10-25 2022-10-25 Outpatient R NAINA SEGOVIA [facility] [id number] Univers 14:00:00 14:40:59 ity of [facility] 2022-10-25 2022-10-25 Office Naina Segovia [facility] 1.2.840.114 [id number] Univers 14:00:00 14:40:59 Visit MULTISPEC 350.1.13.10 ity of [place] 4.2.7.2.686 [place] [id number] [facility] AND HERRERA [address] DIABETES CLINIC 2022-10-25 2022-10-25 Telephone [facility] 1.2.188.697 [id number] [id number] Univers 00:00:00 00:00:00 Holly A HEALTH 350.1.13.10 i ty of [place] 4.2.7.2.686 [place] KEITH?BLEA 594.4518243 Ma krystal MCKEON 044 [facility] OFFICE [facility] 2022-10-24 2022-10-24 Outpatient R SKYLER FERRARI [facility] [id number] Univers 09:20:00 10:35:48 SKYLER FERRARI itcamryn [facility] 2022-10-24 2022-10-24 Office Abbey [facility] 1.2.840.114 [id number] Univers 09:20:00 10:35:48 Visit Skyler Aquino [facility] 350.1.13.10 ity of [facility] 4.2.7.2.686 [place] KEITH?BLEA [id number] [facility] [address] MEDICAL OFFICE [facility] 2022-10-24 2022-10-24 Patient Doctor JAVIER 1.2.840.114 [id number] Univers 00:00:00 00:00:00 Secure Msg Unassigned, JOLANTA 350.1.13.10 ity of [place] [facility] 4.2.7.2.686 [place] [id number] [address] 2022-10-22 2022-10-22 Telephone Zenobia, [facility] 1.2.460.967 [id number] [id number] Univers 00:00:00 00:00:00 Holly A HEALTH 350.1.13.10 i ty of [place] 4.2.7.2.686 [place] KEITH?BLEA [id number] [address] OFFICE [facility] 2022-10-20 2022-10-20 Telephone Zenobia, [facility] 1.2.202.821 [id number] [id number] Univers 00:00:00 00:00:00 Holly A HEALTH 350.1.13.10 i ty of [place] 4.2.7.2.686 [place] KEITH?BLEA [id number] [address] OFFICE [facility] 2022-10-18 2022-10-18 Outpatient R ZENOBIA, [facility] [id number] Univers 15:00:00 15:35:29 HOLLY ity of [facility] 2022-10-18 2022-10-18 Office Zenobia, [facility] 1.2.840.114 [id number] Univers 15:00:00 15:35:29 Visit Holly A HEALTH 350.1.13.10 i ty of [place] 4.2.7.2.686 [place] KEITH?BLEA [id number] [address] OFFICE [facility] 2022-10-18 2022-10-18 Orders Doctor JAVIER 1.2.840.114 [id number] Univers 00:00:00 00:00:00 Only Unassigned, JOLANTA 350.1.13.10 ity of [place] HOSPITAL 4.2.7.2.686 [place] [id number] [facility] [address] 2022-10-17 2022-10-17 Patient Observer Radha Baez Sleep Lab [facility] 1.2 .840.114 [id number] Univers 09:00:00 09:15:00 Visit Kalli Jefferson 350.1.13. 10 ity of [place] 4.2.7.2.686 [place] [id number] [facility] [address] 2022-10-17 2022-10-17 Outpatient R KALLI JEFFERSON [facility] [id number] Univers 09:00:00 09:00:00 KALLI JEFFERSON ity of [facility] 2022-10-03 2022-10-03 Telephone Zenobia [facility] 1.2.740.150 [id number] Univers 00:00:00 00:00:00 Holly A FRIENDSWO 350.1.13.10 ity of [place] 4.2.7.2.686 [place] PEDIATRIC [id number] Ma dical AND ADULT [address] SPECIALTY [facility]ARE CLINICS 2022-10-03 2022-10-03 Telephone Shahrzad [facility] 1.2.840.114 100 [id number] Univers 00:00:00 00:00:00 Meghan HEALTH 350.1.13.10 it y of [place] 4.2.7.2.686 [place] [id number] [facility] [address] OFFICE BUILDING 2022-10-02 2022-10-02 Refill Zenobia [facility] 1.2.840.114 [id number] 813 Univers 00:00:00 00:00:00 Holly A HEALTH 350.1.13.10 i ty of [place] 4.2.7.2.686 [place] KEITH?BLEA 213.0354315 Ma dical KNEY [address] MEDICAL OFFICE BUILDING 2022-10-01 2022-10-01 Refill Doctor [facility] 1.2.840.114 [id number] Univers 00:00:00 00:00:00 Unassigned, MULTISPEC 350.1.13.10 ity of [place] IALTY 4.2.7.2.686 [place] [facility] [id number] [facility] AND MASSENA [address] [facility]IC 2022-10-01 2022-10-01 Refill Doctor [facility] 1.2.840.114 [id number] Univers 00:00:00 00:00:00 Unassigned, FAMILY 350.1.13.10 ity of [place] MEDICINE 4.2.7.2.686 [place] CLINIC - [id number] [address] 2022-10-01 2022-10-01 Refjo-ann Trinidad [facility] 1.2.840.114 [id number] Univers 00:00:00 00:00:00 Radha FAMILY 350.1.13.10 it y of MEDICINE 4.2.7.2.686 [place] CL[place]IC - [id number] [address] 2022-09-21 2022-09-21 Outpatient R ZENOBIA [facility] [id number] Univers 11:00:00 11:57:44 HOLLY guzmán [facility] 2022-09-21 2022-09-21 Office [facility] 1.2.840.114 [id number] Univers 11:00:00 11:57:44 Visit Holly Umanzor HEALTH 350.1.13.10 i ty of [place] 4.2.7.2.686 [place] KEITH?BLEA [id number] [address] MEDICAL OFFICE BUILDING 2022-09-21 2022-09-21 Office Lambert [facility] 1.2.840.114 [id number] Univers 08:00:00 08:30:00 Visit , Taylor GOMEZ 350.1.13.10 ity of [place] MACDONAL[place] 4.2.7.2.686 [place] KEITH?BLEA [id number] [address] MEDICAL OFFICE BUILDING 2022-09-21 2022-09-21 Outpatient R LAMBERT [facility] [id number] Univers 08:00:00 08:00:00 , TAYLOR cowan [facility] 2022-09-19 2022-09-19 Nurse Carolyn HERRERA 1.2.840.114 [id number] Univers 00:00:00 00:00:00 Triage JOLANTA Nava 350.1.13.10 ity of [facility] 4.2.7.2.686 [place] [id number] [place] [address] 2022-09-19 2022-09-19 Telephone [facility] 1.2.113.978 [id number] Univers 00:00:00 00:00:00 Curtis MULTISPEC 350.1.13.10 ity of [place]2.7.2.686 [place] [id number] [facility] [address] DIABETES CLINIC 2022-09-18 2022-09-18 Telemedici [facility] 1.2.840.114 [id number] Univers 10:00:00 10:30:00 ne Visit Beth WHEELER 350.1.13.10 ity of [place] 4.2.7.2.686 [place] 493.5679656 [facility] AND MASSE[place] [address] DI[facility] CLINIC 2022-09-18 2022-09-18 [facility] [id number] [facility] 10:00:00 10:00:00 BETH guzmán o f [facility] 2022-09-18 2022-09-18 Telephone [facility] 1.2.370.776 [id number] Univers 00:00:00 00:00:00 Curtis WHEELER 350.1.13.10 ity of [place].2.7.2.686 [place] 636.1753548 [facility] [address] DIABETES CLINIC 2022-09-15 2022-09-15 [facility] 1.2.840.114 [id number] [facility] 10:53:55 23:59:00 Encounter Curtis MULTISPEC 350.1.13.10 ity of [place] 4.2.7.2.686 [place] [id number] [facility] AND MASSE[place] [address] DIABETES CLINIC 2022-09-15 2022-09-15 Office [facility] 1.2.840.114 [id number] Univers 10:30:00 11:00:00 Visit Curtis RAHMANPEC 350.1.13.10 ity of [place] I[place] 4.2.7.2.686 [place] 120.6053536 [facility] AND HERRERA [address] DI[facility] CLINIC 2022-09-15 2022-09-15 Outpatient R PEYMAN [facility] [id number] Univers 10:30:00 10:30:00 CURTIS guzmán [facility] 2022-09-13 2022-09-13 Outpatient R RICHA DOMINGUEZ [facility] [id number] Univers 09:30:00 10:35:03 RICHA DOMINGUEZ [facility] 2022-09-13 2022-09-13 Office Keyla [facility] 1.2.840.114 [id number] Univers 09:30:00 10:35:03 Visit HEALTH 350.1.13.10 it y of [place] 4.2.7.2.686 [place] KEITH?BLEA [id number] [address] MEDICAL OFFICE [facility] 2022-09-13 2022-09-13 Telephone Bruce [facility] 1.2.840.11 4 [id number] Univers 00:00:00 00:00:00 Ez BEE 350.1.13.10 it y of [place] 4.2.7.2.686 [place] [id number] [address] 2022-09-13 2022-09-13 Telephone Peyman [facility] 1.2.248.856 [id number] [id number] Univers 00:00:00 00:00:00 Curtis WHEELER 350.1.13.10 ity of [place] 4.2.7.2.686 [facility] [id number] [facility] AND MASSE[place] [address] [facility]IC 2022-09-12 2022-09-12 Office Aayush [facility] 1.2.876.657 [id number] [id number] Univers 09:30:00 10:14:05 Visit Argentina BEE 350.1.13.10 i ty of W[place] 4.2.7.2.686 [place] [id number] [address] 2022-09-12 2022-09-12 Outpatient Annalee LOONEY [facility] [id number] Univers 09:30:00 10:14:05 ARGENTINA guzmán [facility] 2022-09-12 2022-09-12 Orders Doctor JAVIER 1.2.840.114 [id number] Univers 00:00:00 00:00:00 Only Unassigned, JOLANTA 350.1.13.10 ity of [place] [facility] 4.2.7.2.686 [place] 537.6443555 [facility] [address] 2022-09-06 2022-09-06 Patient Bruce [facility] TALISHA 1.2.840.114 [id number] Univers 00:00:00 00:00:00 Secure Msg Ez BEE 350.1.13.10 ity of WOMEN'S 4.2.7.2.686 [place] [facility] [id number] [facility] [address] 2022-08-29 2022-08-29 Outpatient R PEYMAN [facility] [id number] Univers 10:30:00 10:30:00 CURTIS ity [facility] 2022-08-21 2022-08-21 Patient Observer Lab, Raj [facility] 1.2.840.1 14 [id number] Univers 10:15:00 10:15:00 Visit Pedro Pablo Quipper 350.1.13.10 ity of [place] 4.2.7.2.686 [place] KEITH?BLEA [id number] [facility] [address] MEDICAL OFFICE [facility] 2022-08-21 2022-08-21 Outpatient R [facility] [id number] Univers 10:15:00 10:09:08 BIA ity [facility] 2022-08-21 2022-08-21 Office [facility] 1.2.840.114 [id number] Univers 09:30:00 09:56:40 Visit Quipper 350.1.13.10 it y of [place] 4.2.7.2.686 [place] KEITH?BLEA [id number] [facility] [address] MEDICAL OFFICE [facility] 2022-08-17 2022-08-17 Outpatient R [facility] [id number] Univers 13:00:00 13:00:00 ity of [facility] 2022-08-17 2022-08-17 Telephone Amos [facility] 1.2.410.959 [id number] Univers 00:00:00 00:00:00 Radha FAMILY 350.1.13.10 it y of MEDICINE 4.2.7.2.686 [place] CLINIC - [id number] [address] 2022-08-16 2022-08-16 Outpatient R SKYLER FERRARI [facility] [id number] Univers 12:39:58 23:59:00 SKYLER FERRARI ity [facility] 2022-08-16 2022-08-16 [facility] 1.2.792.058 [id number] Univers 12:39:58 23:59:[address] [facility] SPECIALTY 350.1.13.10 ity of [place] 4.2.7.2.686 [place] AT [id number] Ma krystal MICHELCamryn 4 [facility] 2022-08-16 2022-08-16 [facility] 1.2.840.114 [id number] Univers 00:00:00 00:00:00 Radha FAMILY 350.1.13.10 it y of MEDIC[place] 4.2.7.2.686 [place] CL[place]IC - [id number] [address] 2022-08-15 2022-08-15 Outpatient R EZ PALACIO [facility] B [id number] Univers 11:30:00 11:42:13 EZ PALACIO [facility] 2022-08-15 2022-08-15 Office [facility] 1.2.840.114 [id number] Univers 11:30:00 11:42:13 Visit Ez BEE 350.1.13.10 it y of [place] 4.2.7.2.686 [place] HE[place] [id number] [address] 2022-08-15 2022-08-15 Telephone [facility] 1.2.840.11 [id number] Univers 00:00:00 00:00:00 Ez BEE 350.1.13.10 it y of [place] 4.2.7.2.686 [place] [id number] [address] 2022-08-03 2022-08-03 Patient Observer Lab, Ang - Db [facility] 1.2.840.1 14 [id number] Univers 12:45:00 13:00:00 Visit Ez Palacio 350.1.13.1 0 ity of [facility] 4.2.7.2.686 [place] KEITH?BLEA [id number] [address] MEDICAL OFFICE BUILDING 2022-08-03 2022-08-03 Outpatient R EZ PALACIO [facility] B [id number] Univers 12:45:00 12:45:00 [facility] SOUTHEZ ROBLEDO [facility] 2022-08-02 2022-08-02 Outpatient R EZ PALACIO [facility] B [id number] Univers 13:00:00 13:55:50 [facility] SOUTHEZ ROBLEDO [facility] 2022-08-02 2022-08-02 Office [facility] 1.2.840.114 [id number] Univers 13:00:00 13:55:50 Visit Ez CESIA 350.1.13.10 it y of [place]OMEN'[place] 4.2.7.2[place] [facility] [id number] [facility] [address] 2022-07-26 2022-07-26 Outpatient R EZ PALACIO [facility] B [id number] Univers 08:50:28 23:59:00 [facility] AGUIL[facility]A [facility] 2022-07-26 2022-07-26 [facility] 1.2.840.114 [id number] Univers 08:50:28 23:59:00 Encounter Ez [facility] 350.1.13.10 [place] [id number] [facility] [address] 2022-07-26 2022-07-26 Telephone Abbey [facility] 1.2.840.114 [id number] Univers 00:00:00 00:00:[address] [facility] HEALTH 350.1.13.10 ity of [place] 4.2.7.2.686 [place] as KEITH?BLEA [id number] Ma krystal [address] OFFICE BUILDING 2022-07-24 2022-07-24 Outpatient R SKYLER FERRARI [facility] [id number] Univers 09:20:00 10:09:23 SKYLER FERRARI itcamryn [facility] 2022-07-24 2022-07-24 Office Abbey [facility] 1.2.840.114 [id number] Univers 09:20:00 10:09:23 Visit Skyler [facility] 350.1.13.10 ity of [place] 4.2.7.2.686 [place] as KEITH?BLEA [id number] [address] OFFICE [facility] 2022-07-19 2022-07-19 Telephone [facility] 1.2.840.11 [id number] [facility] 00:00:00 00:00:00 Ez BEE 350.1.13.10 it y of WOMEN'S 4.2.7.2.686 [facility] [id number] [address] 2022-07-18 2022-07-18 Outpatient R VERO [facility] [id number] Univers 10:00:00 11:06:06 BETH vogel [facility] 2022-07-18 2022-07-18 [facility] 1.2.840.114 [id number] Univers 10:00:00 11:06:06 Visit Beth WHEELER 350.1.13.10 ity of [place] 4.2.7.2.686 [facility] [id number] [facility] AND [address] [facility] 2022-07-17 2022-07-17 Outpatient R EZ PALACIO [facility] B [id number] Univers 10:45:00 11:30:28 EZ PALACIO of [facility] 2022-07-17 2022-07-17 [facility] 1.2.840.114 [id number] Univers 10:45:00 11:30:28 Visit Ez BEE 350.1.13.10 it y of WOMEN'S 4.2.7.2.686 [facility] [phone] [facility] [address] 2022-07-13 2022-07-13 Telephone [facility] 1.2.301.125 [id number] Univers 00:00:00 00:00:00 Curits WHEELER 350.1.13.10 ity of [place] LUCAS 4.2.7.2.686 [facility] [place] [id number] [facility] AND [place] [address] [facility] 2022-07-11 2022-07-11 Telephone [facility] [id number] Univers 00:00:00 00:00:00 Curtis WHEELER 350.1.13.10 ity of [facility] [place] [id number] [facility] AND [place] [address] [facility] 2022-07-04 2022-07-04 [facility] 1.2.840.114 [id number] Univers 00:00:00 00:00:00 Radha SWEENEY 350.1.13.10 it y of [facility] 4.2.7.2.686 [facility] CLINIC - [id number] [address] 2022-07-03 2022-07-03 [facility] [id number] Univers 11:18:25 23:59:00 CAMILO ity of [facility] 2022-07-03 2022-07-03 Telephone [facility] 1.2.498.122 [id number] Univers 00:00:00 00:00:00 Curtis WHEELER 350.1.13.10 ity of Scooternishant LUCAS [facility] [place] [phone] [facility] AND [place] [address] DI[facility]ES CLINIC 2022-06-30 2022-06-30 [facility] 1.2.840.114 [id number] Univers 14:31:25 23:59:00 Encounter Curtis WHEELER 350.1.13.10 ity of [place] 4.2.7.2.686 [facility] [place] [phone] [facility] AND [place] [address] [facility] 2022-06-30 2022-06-30 Office [facility] 1.2.840.114 [id number] Univers 14:00:00 14:30:00 Visit Curtis WHEELER 350.1.13.10 ity of [place] 4.2.7.2.686 [place] [phone] [address] DIABETES [facility] 2022-06-30 2022-06-30 Outpatient R PEYMAN [facility] [id number] Univers 14:00:00 14:00:00 CURTIS ity [facility] 2022-06-28 2022-06-28 Telephone [facility] 1.2.959.626 [id number] Univers 00:00:00 00:00:00 Curtis WHEELER 350.1.13.10 ity of [place] 4.2.7.2.686 [facility] [place] [id number] [address] [facility]ETES CLINIC 2022-06-27 2022-06-27 [facility]is [facility] 1.2.840.114 [id number] Univers 00:00:00 00:00:00 Radha [facility] 350.1.13.10 it y of MEDICINE 4.2.7.2.686 [place] - [id number] [address] 2022-06-21 2022-06-21 Patient Aayush [facility] 1.2.618.498 [id number] [id number] Univers 00:00:00 00:00:00 Secure Msg Argentina BEE 350.1.13.10 ity of WOMEN'S 4.2.7.2.686 [facility] [phone] [facility] [address] 2022-06-20 2022-06-20 Patient Observer Lab, Ang - Db [facility] 1.2.840.1 14 [id number] Univers 11:45:00 12:00:00 Visit Argentina Looney 350.1.13.10 ity of [place] 4.2.7.2.686 [place] KEITH?BLEA [id number] [address] MEDICAL OFFICE BUILDING 2022-06-20 2022-06-20 Outpatient R AAYUSH [facility] [id number] Univers 10:00:00 10:51:04 ARGENTINA guzmán [facility] 2022-06-20 2022-06-20 Office Addamari, [facility] 1.2.595.168 [id number] Univers 10:00:00 10:51:04 Visit Argentina Young BEE 350.1.13.10 i ty of WOMEN'S 4.2.7.2.686 [place] [id number] [facility] [address] 2022-06-16 2022-06-16 Orders Doctor JAVIER 1.2.840.114 [id number] Univers 00:00:00 00:00:00 Only Unassigned, JOLANTA 350.1.13.10 ity of [place] [facility] 4.2.7.2.686 [place] [phone] [place] [address] [address] 2022-06-09 2022-06-09 Out[facility] [id number] Univers 10:15:00 11:34:49 CAMILO ity [facility] 2022-06-09 2022-06-09 Office BRISEIDA Corley 1.2.985.605 [id number] Univers 10:15:00 11:34:49 Visit Camilo Cowan 350.1.13.10 i ty of [place] NATIONAL 4.2.7.2.686 [place] BANK [phone] [facility] BLDG. [address] 2022-05-22 2022-05-22 Refill Doctor [facility] 1.2.840.114 [id number] Univers 00:00:00 00:00:00 Unassigned, FAMILY 350.1.13.10 [place] of [place] MEDICINE 4.2.7.2.686 [place] - [id number] [address] 2022-05-21 2022-05-21 [facility]ill [facility] 1.2.840.114 [id number] 08 Univers 00:00:00 00:00:00 Radha FAMILY 350.1.13.10 it y of MEDICINE 4.2.7.2.686 [place] - [id number] [address] 2022-05-17 2022-05-17 Telephone [facility] 1.2.525.833 [id number] Univers 00:00:00 00:00:00 Curtis MULTISPEC 350.1.13.10 ity of [place] IALTY 4.2.7.2.686 [place] C[place] [id number] [address] DIABETES CLINIC 2022-05-17 2022-05-17 Telephone [facility] 1.2.137.728 [id number] Univers 00:00:00 00:00:00 Curtis RAHMANPEC 350.1.13.10 ity of [place] 4.2.7.2.686 [place] [id number] [address] DIABETES CLINIC 2022-05-17 2022-05-17 Telephone [facility] 1.2.173.450 [id number] Univers 00:00:00 00:00:00 Radha SWEENEY 350.1.13.10 it y of MEDICINE 4.2.7.2.686 [place] - [id number] [address] 2022-05-16 2022-05-16 Outpatient [facility] [id number] Univers 10:00:00 11:13:48 [facility] 2022-05-16 2022-05-16 Office [facility] 1.2.840.114 [id number] Univers 10:00:00 11:13:48 Visit Curtis RAHMANLATONAY 350.1.13.10 ity of [place] 4.2.7.2.686 [place] [id number] [address] DIABETES CLINIC 2022-05-10 2022-05-10 Patient Doctor [facility] 1.2.840.114 [id number] Univers 00:00:00 00:00:00 Secure Msg Unassigned, FAMILY 350.1.13.10 it[place] of [place] MEDICINE 4.2.7.2.686 [place] - [id number] [address] 2022-05-08 2022-05-08 Patient Observer Lab, [facility] [address] [facility] 1 .2.840.114 [id number] Univers 09:15:00 09:30:00 Visit TrinidadRadha 350.1.13.10 ity of MEDICINE 4.2.7.2.686 [place] CL[place] - [id number] [facility] [address] [facility] 2022-05-08 2022-05-08 Outpatient R AMOS [facility] [id number] Univers 09:15:00 09:15:00 RADHA ity of [facility] 2022-05-04 2022-05-04 Telephone [facility] 1.2.849.026 [id number] Univers 00:00:00 00:00:00 Radha SWEENEY 350.1.13.10 it y of MEDICINE 4.2.7.2.686 [place] - [id number] [address] 2022-05-01 2022-05-01 Solis Morley [facility] 1.2.840.114 [id number] Univers 00:00:00 00:00:00 Curtis [facility] 350.1.13.10 ity [place] 4.2.7.2.686 [facility] [phone] [facility] AND [address] DIABETES CLINIC 2022-04-28 2022-04-28 Solis Michel [facility] 1.2.840.114 [id number] Univers 00:00:00 00:00:00 [facility] 350.1.13.10 it y of CANC[place] 4.2.7.2.686 [place] - [phone] [address] 2022-04-26 2022-04-26 Telephone [facility] 1.2.283.470 [id number] Univers 00:00:00 00:00:00 Radha SWEEENY 350.1.13.10 it y of MEDICINE 4.2.7.2.686 [place] - [id number] [address] 2022-04-21 2022-04-21 Patient [facility] 1.2.840.114 [id number] Univers 00:00:00 00:00:00 Secure Msg Radha SWEENEY 350.1.13.10 ity of MEDICINE 4.2.7.2.686 [place] - [id number] [address] 2022-04-21 2022-04-21 Solis Michel [facility] 1.2.840.114 [id number] Univers 00:00:00 00:00:00 [facility] 350.1.13.10 it y of CANCER 4.2.7.2.686 [facility] - [id number] [facility] [address] 2022-04-21 2022-04-21 Refill Doctor [facility] 1.2.840.114 [id number] Univers 00:00:00 00:00:00 Unassigned, FAMILY 350.1.13.10 it[place] of [place] MEDICINE 4.2.7.2.686 [place] CL[place] - [id number] [facility] [address] [facility] 2022-04-21 2022-04-21 Refill Olu [facility] 1.2.840.114 [id number] Univers 00:00:00 00:00:00 [facility] 350.1.13.10 i ty of PEDIATRIC 4.2.7.2.686 [facility] [phone] [place] [address] [address] 2022-04-18 2022-04-18 Telemedici [facility] 1.2.840.114 [id number] Univers 14:00:00 14:30:00 ne Visit Radha SWEENEY 350.1.13.10 i ty of MEDICINE 4.2.7.2.686 [place] - [id number] [address] 2022-04-18 2022-04-18 Outpatient Annalee [facility] [id number] Univers 14:00:00 14:00:00 RADHA [facility] 2022-04-18 2022-04-18 Outpatient Annalee [facility] [id number] Univers 14:00:00 14:00:00 RADHA [facility] 2022-04-18 2022-04-18 Outpatient Annalee [facility] [id number] Univers 10:00:00 10:00:00 [facility] 2022-04-17 2022-04-17 Telephone [facility] 1.2.220.678 [id number] Univers 00:00:00 00:00:00 Radha SWEENEY 350.1.13.10 it y of MEDICINE 4.2.7.2.686 [place] - [id number] [address] 2022-04-13 2022-04-13 Refill [facility] 1.2.840.114 [id number] Univers 00:00:00 00:00:00 Radha FAMILY 350.1.13.10 it y of MEDICINE 4.2.7.2.686 [place] - [id number] [address] 2022-04-05 2022-04-05 Orders Doctor JAVIER 1.2.840.114 [id number] Univers 00:00:00 00:00:00 Only Unassigned, JOLANTA 350.1.13.10 ity of [place] [facility] 4.2.7.2.686 [place] [id number] [address] 2022-03-26 2022-03-26 [facility] 1.2.840.114 [id number] Univers 00:00:00 00:00:00 Radha FAMILY 350.1.13.10 it y of MEDICINE 4.2.7.2.686 [place] - [id number] [address] 2022-03-26 2022-03-26 Refgrand [facility] 1.2.840.114 [id number] Univers 00:00:00 00:00:[address] 350.1.13.10 it y of CANC[place] 4.2.7.2.686 [place] [facility] - [id number] [address] 2022-03-13 2022-03-13 Orders Doctor JAVIER 1.2.840.114 [id number] Univers 00:00:00 00:00:00 Only Unassigned, JOLANTA 350.1.13.10 ity of [place] [facility] 4.2.7.2.686 [place] [id number] [address] 2022-03-10 2022-03-10 Telephone [facility] 1.2.167.993 [id number] Univers 00:00:00 00:00:00 Radha FAMILY 350.1.13.10 it y of MEDICINE 4.2.7.2.686 [place] CL[place] - [id number] [address] 2022-03-08 2022-03-08 Telephone [facility] 1.2.082.279 [id number] [id number] Univers 00:00:00 00:00:00 [facility] 350.1.13.10 it y of CANCER 4.2.7.2.686 [place] [facility] - 227.5533105 [address] 2022-03-08 2022-03-08 Telephone [facility] 1.2.924.626 [id number] Univers 00:00:00 00:00:00 Radha FAMILY 350.1.13.10 it y of MEDICINE 4.2.7.2.686 [place] - [id number] [address] 2022-03-07 2022-03-07 Outpatient R [facility] [id number] Univers 14:00:00 14:00:00 AZALIA ity [facility] 2022-03-07 2022-03-07 Telephone [facility] 1.2.297.830 [id number] Univers 00:00:00 00:00:00 Radha FAMILY 350.1.13.10 it y of MEDICINE 4.2.7.2.686 [place] - [id number] [address] 2022-03-05 2022-03-05 Refill [facility] 1.2.840.114 [id number] Univers 00:00:00 00:00:00 Radha SWEENEY 350.1.13.10 it y of MEDICINE 4.2.7.2.686 [place] - [id number] [address] 2022-02-28 2022-02-28 Patient Doctor [facility] 1.2.840.114 [id number] Univers 00:00:00 00:00:00 Secure Msg Unassigned, FAMILY 350.1.13.10 it[place] of [place] MEDICINE 4.2.7.2.686 [place] - 270.0533632 [address] 2022-02-13 2022-02-13 Refill [facility] 1.2.840.114 [id number] Univers 00:00:00 00:00:00 Radha SWEENEY 350.1.13.10 it y of MEDICINE 4.2.7.2.686 [place] - [id number] [address] 2022-02-10 2022-02-10 Telephone [facility] 1.2.658.902 [id number] Univers 00:00:00 00:00:00 Radha SWEENEY 350.1.13.10 it y of MEDICINE 4.2.7.2.686 [place] - [id number] [address] 2022-02-10 2022-02-10 Refill [facility] 1.2.840.114 [id number] Univers 00:00:00 00:00:00 Radha SWEENEY 350.1.13.10 it y of MEDICINE 4.2.7.2.686 [place] - 762.8919716 [address] 2022-02-09 2022-02-09 Refill [facility] 1.2.840.114 [id number] Univers 00:00:00 00:00:00 Radha SWEENEY 350.1.13.10 it y of MEDICINE 4.2.7.2.686 [place] - 539.7816714 [address] 2022-02-09 2022-02-09 [facility] 1.2.840.114 [id number] Univers 00:00:00 00:00:00 [facility] HEALTH 350.1.13.10 it y of [place] 4.2.7.2.686 [place] - [id number] [address] 2022-01-24 2022-01-24 Office [facility] 1.2.840.114 [id number] Univers 14:00:00 14:15:00 Visit Azalia HEALTH 350.1.13.10 it y of CANCER 4.2.7.2.686 [facility] s CENTER - [id number] [address] 2022-01-24 2022-01-24 Outpatient R MARILU [facility] [id number] Univers 14:00:00 14:00:00 AZALIA guzmán of [facility] 2022-01-24 2022-01-24 Outpatient R MARILU [facility] [id number] Univers 14:00:00 14:00:00 AZALIA guzmán [facility] 2022-01-24 2022-01-24 Outpatient R MARILU [facility] [id number] Univers 14:00:00 14:00:00 AZALIA camryn [facility] 2022-01-24 2022-01-24 Outpatient Annalee MARILU, [facility] [id number] Univers 14:00:00 14:00:00 AZALIA camryn [facility] 2022-01-24 2022-01-24 Patient Doctor [facility] 1.2.840.114 [id number] Univers 00:00:00 00:00:00 Secure Msg Unassigned, FAMILY 350.1.13.10 [place] of [place] MEDICINE 4.2.7.2.686 [place] - [id number] [address] 2022-01-24 2022-01-24 Patient [facility] 1.2.840.114 [id number] Univers 00:00:00 00:00:00 Secure Msg Radha FAMILY 350.1.13.10 ity of MEDICINE 4.2.7.2.686 [place] - [id number] [address] 2022-01-21 2022-01-21 Patient Doctor JAVIER 1.2.840.114 [id number] Univers 00:00:00 00:00:00 Secure Msg Unassigned, JOLANTA 350.1.13.10 ity of [place] [facility] 4.2.7.2.686 [place] 511.6422675 [address] 2022-01-20 2022-01-20 Telephone [facility] 1.2.823.034 [id number] Univers 00:00:00 00:00:00 Radha FAMILY 350.1.13.10 it y of MEDICINE 4.2.7.2.686 [place] - 606.1158551 [address] 2022-01-20 2022-01-20 Telephone [facility] 1.2.916.001 [id number] Univers 00:00:00 00:00:00 Radha SWEENEY 350.1.13.10 it y of MEDICINE 4.2.7.2.686 [place] - 698.2905461 [address] 2022-01-16 2022-01-16 Office Amos [facility] 1.2.840.114 [id number] Univers 15:00:00 15:30:00 Visit Radha SWEENEY 350.1.13.10 it y of MEDICINE 4.2.7.2.686 [place] - 497.8099163 [address] 2022-01-16 2022-01-16 Outpatient R AMOS [facility] [id number] Univers 15:00:00 15:00:00 RADHA ity [facility] 2022-01-16 2022-01-16 Refjo-ann Mendez [facility] 1.2.840.114 [id number] Univers 00:00:00 00:00:00 Catalina SWEENEY 350.1.13.10 ity of MEDICINE 4.2.7.2.686 [place] - [id number] [address] 2022-01-04 2022-01-04 Patient Doctor [facility] 1.2.840.114 [id number] Univers 00:00:00 00:00:00 Secure Msg Unassigned, MULTISPEC 350.1.13.10 [place]y of [place] 4.2.7.2.686 [place] 267.5942281 [address] DIABETES CLINIC 2022-01-04 2022-01-04 Solis Morley [facility] 1.2.840.114 [id number] 62 Univers 00:00:00 00:00:00 Curtis MULTISPEC 350.1.13.10 ity of [place] 4.2.7.2.686 [place] 120.4015033 [address] DIABETES CLINIC 2022-01-04 2022-01-04 Solis [facility] 1.2.840.114 [id number] Univers 00:00:00 00:00:00 Radha SWEENEY 350.1.13.10 it y of MEDICINE 4.2.7.2.686 [place] - 994.1140601 [address] 2021-12-21 2021-12-21 Telephone [facility] 1.2.266.558 [id number] [id number] Univers 00:00:00 00:00:00 [facility] 350.1.13.10 it y of CANCER 4.2.7.2.686 [facility] 601.0892916 [address] 2021-12-20 2021-12-20 Outpatient R [facility] [id number] Univers 14:30:00 14:30:00 [facility] 2021-12-07 2021-12-07 Refill [facility] 1..840.114 [id number] Univers 00:00:00 00:00:00 Radha FAMILY 350.1.13.10 it y of MEDICINE 4.2.7.2.686 [place] - 759.3345062 [address] 2021-11-29 2021-11-29 Patient [facility] 1..840.114 [id number] Univers 00:00:00 00:00:00 Secure Msg Radha SWEENEY 350.1.13.10 ity of MEDICINE 4.2.7.2.686 [place] - 794.6040448 [address] 2021-11-22 2021-11-22 Telemedici [facility] 1..840.114 [id number] 11589 Univers 16:00:00 16:15:00 ne Visit [facility] 350.1.13.10 i ty of CANCER 4.2.7.2.686 [place] - 004.4605589 [address] 2021-11-22 2021-11-22 Outpatient Annalee MICHEL [facility] [id number] Univers 16:00:00 16:00:00 [facility] 2021-11-22 2021-11-22 Outpatient Annalee [facility] [id number] Univers 16:00:00 16:00:00 [facility] 2021-11-22 2021-11-22 Telephone [facility] 1.2.094.333 [id number] Univers 00:00:00 00:00:00 Radha FAMILY 350.1.13.10 it y of MEDICINE 4.2.7.2.686 [place]IC - 001.2079837 [facility] [address] [facility] 2021-11-22 2021-11-22 Telephone [facility] 1.2.006.639 [id number] 1558 Univers 00:00:00 00:00:00 Azalia HEALTH 350.1.13.10 it y of CANCER 4.2.7.2.686 [facility] [place] - [phone] [facility] [address] 2021-11-20 2021-11-20 Telephone [facility] 1.2.663.825 [id number] 1660 Univers 00:00:00 00:00:00 Azalia HEALTH 350.1.13.10 it y of CANCER 4.2.7.2.686 [facility] [place] - 221.1298226 [facility] [address] 2021-11-20 2021-11-20 Telephone [facility] 1.2.449.126 [id number] 2488 Univers 00:00:00 00:00:00 Azalia HEALTH 350.1.13.10 it y of CANCER 4.2.7.2.686 [facility] [place] - 977.7519368 [facility] [address] 2021-11-20 2021-11-20 Telephone MARCOS Berry 1.2.020.974 [id number] Univers 00:00:00 00:00:00 jluis STOVER 350.1.13.10 it y of [facility] 4.2.7.2.686 [place] 533.2020814 [place] [address] 2021-11-15 2021-11-15 Outpatient Annalee CORLEY [facility] [id number] Univers 08:45:00 08:45:00 CAMILO guzmán [facility] 2021-11-15 2021-11-15 Outpatient Annalee CORLEY [facility] [id number] Univers 08:45:00 08:45:00 CAMILO guzmán [facility] 2021-11-14 2021-11-14 Outpatient [facility] [id number] Univers 10:46:00 15:24:00 AZALIA ity [facility] 2021-11-14 2021-11-14 Hospital Marilu [facility] 1.2.840.114 [id number] Univers 10:46:00 15:24:00 Encounter Azalia GOMEZ 350.1.13.10 ity of [place] 4.2.7.2.686 [facility] [id number] [address] ([facility]) 2021-11-14 2021-11-14 Surgery Marilu [facility] 1.2.840.114 [id number] Univers 11:43:00 13:33:00 Azalia SPECIALTY 350.1.13.10 ity of CARE 4.2.7.2.686 [facility] AT [id number] Ma liliolena RAMIREZ [address] [place] [address] 2021-11-11 2021-11-11 Laboratory Only, Adc Test [facility] 1.2.840. 114 [id number] Univers 14:00:00 14:15:00 Only Azalia Michel 350.1.13.10 ity of [place] 4.2.7.2.686 [facility] [id number] [address] 2021-11-11 2021-11-11 Outpatient Annalee MICHEL [facility] [id number] Univers 14:00:00 14:00:00 AZALIA guzmán [facility] 2021-11-08 2021-11-08 Office Marilu [facility] 1.2.840.114 [id number] Univers 14:15:00 14:30:00 Visit Azalia GOMEZ 350.1.13.10 it y of CANCER 4.2.7.2.686 [facility] - [id number] Med ical [facility] [address] 2021-11-08 2021-11-08 Outpatient R MARILU [facility] [id number] Univers 14:15:00 14:15:00 AZALIA guzmán [facility] 2021-11-08 2021-11-08 Solis Trinidad [facility] 1.2.840.114 [id number] Univers 00:00:00 00:00:00 Radha FAMILY 350.1.13.10 it y of MEDICINE 4.2.7.2.686 [place] - [id number] [address] 2021-11-04 2021-11-04 Outpatient Annalee MICHEL [facility] [id number] Univers 11:00:00 11:00:00 AZALIA camryn [facility] 2021-10-26 2021-10-26 Patient [facility] 1.2.840.114 [id number] Univers 00:00:00 00:00:00 Secure Msg [facility] 350.1.13.10 [facility] Sc[place]ernishant LUCAS 4.2.7.2.686 [facility] [id number] [address] [facility]ES [facility]IN[facility] 2021-10-22 2021-10-22 Solis [facility] 1.2.840.114 [id number] Univers 00:00:00 00:00:00 Radha SWEENEY 350.1.13.10 it y of MEDICINE 4.2.7.2.686 [place] - [id number] [address] 2021-10-17 2021-10-17 Outpatient [facility] [id number] Univers 09:30:00 09:30:00 CURTIS [facility] 2021-10-05 2021-10-05 Outpatient SKYLER DOUGHERTY [facility] [id number] Univers 11:30:00 11:30:00 SKYLER FERRARI [facility] 2021-10-05 2021-10-05 Solis [facility] 1.2.840.114 [id number] Univers 00:00:00 00:00:00 Radha SWEENEY 350.1.13.10 it y of MEDICINE 4.2.7.2.686 [place] [facility] - [phone] [address] 2021-09-29 2021-09-29 Outpatient Annalee MORLEY [facility] [id number] Univers 08:30:00 08:30:00 CURTIS camryn [facility] 2021-09-29 2021-09-29 Outpatient Annalee MORLEY [facility] [id number] Univers 08:30:00 08:30:00 CURTIS guzmán [facility] 2021-09-29 2021-09-29 Outpatient Annalee MORLEY [facility] [id number] Univers 08:30:00 08:30:00 CURTIS camryn [facility] 2021-09-16 2021-09-16 Outpatient Annalee AMOS [facility] [id number] Univers 14:30:00 14:30:00 RADHA [facility] 2021-09-16 2021-09-16 Outpatient Annalee TRINIDAD [facility] [id number] Univers 14:30:00 14:30:00 RADHA [facility] 2021-09-15 2021-09-15 [facility] 1.2.840.114 [id number] Univers 00:00:00 00:00:00 Curtis WHEELER 350.1.13.10 ity [facility] 4.2.7.2.686 [facility] [phone] [facility] AND [address] [facility] 2021-09-06 2021-09-06 Office Amos [facility] 1.2.840.114 [id number] Univers 09:00:00 09:30:00 Visit Radha S[place] 350.1.13.10 it y of MEDICINE 4.2.7.2.686 [place] [facility] - [id number] [address] 2021-09-06 2021-09-06 Outpatient Annalee TRINIDAD [facility] [id number] Univers 09:00:00 09:00:00 RADHA [facility] 2021-09-06 2021-09-06 Outpatient Annalee TRINIDAD [facility] [id number] Univers 09:00:00 09:00:00 RADHA [facility] 2021-09-06 2021-09-06 Orders Doctor HERRERA 1.2.840.114 [id number] Univers 00:00:00 00:00:00 Only Unassigned, JOLANTA 350.1.13.10 ity of [facility] 4.2.7.2.686 [place] [id number] [place] [address] [address] 2021-09-06 2021-09-06 Telephone Peyman [facility] [id number] Univers 00:00:00 00:00:00 Curtis WHEELER 350.1.13.10 ity of [place] 4.2.7.2.686 [facility] [phone] [facility] AND [place] [address] [facility] 2021-09-01 2021-09-01 [facility] 1.2.840.114 [id number] Univers 00:00:00 00:00:00 Radha SWE[place] 350.1.13.10 it y of MEDICINE 4.2.7.2.686 [place] [facility] - [id number] [address] 2021-08-10 2021-08-10 [facility] 1.2.840.114 [id number] Univers 00:00:00 00:00:00 [facility] 350.1.13.10 i ty of PEDIATRIC 4.2.7.2.686 Te [facility] [id number] [facility] [address] 2021-08-03 2021-08-03 [facility] 1.2.840.114 [id number] Univers 00:00:00 00:00:00 Radha SWEENEY 350.1.13.10 it y of MEDICINE 4.2.7.2.686 [place] [facility] - [id number] [address] 2021-08-03 2021-08-03 [facility] 1.2.840.114 [id number] Univers 00:00:00 00:00:00 Radha SWE[place]Y 350.1.13.10 it y of MEDICINE 4.2.7.2.686 [place] [facility] - [id number] [address] 2021-08-02 2021-08-02 [facility] 1.2.840.114 [id number] Univers 00:00:00 00:00:00 Radha SWEENEY 350.1.13.10 it y of MEDICINE 4.2.7.2.686 [place] [facility] - [id number] [address] 2021-08-02 2021-08-02 [facility] 1.2.840.114 [id number] Univers 00:00:00 00:00:00 [facility] 350.1.13.10 i ty of PEDIATRIC 4.2.7.2.686 Te [facility] [id number] [facility] [address] 2021-08-02 2021-08-02 Solis Carrasco [facility] 1.2.840.114 [id number] Univers 00:00:00 00:00:00 [place] [facility]ULTISPEC 350.1.13.10 ity [place]2.[place] [id number] [facility] [address] [place] [facility] 2021-08-02 2021-08-02 [facility] 1.2.840.114 [id number] Univers 00:00:00 00:00:00 Catalina FAMILY 350.1.13.10 ity of MEDICINE 4.2.7.2.686 [facility] as CLINIC - [phone] [facility] [address] [place] 2021-08-01 2021-08-01 [facility]phone [facility] 1.2.785.231 [id number] Univers 00:00:00 00:00:00 Rene Mar MULTISPEC 350.1.13.10 it[place] of [place] [id number] [facility] [address] DIABETES CLINIC 2021-07-29 2021-07-29 Hospital [facility] 1.2.840.114 [id number] Univers 12:53:28 23:59:00 Encounter Curtis WHEELER 350.1.13.10 ity of Scooter LUCAS 4.2.7.2.686 [facility] [phone] [facility] [address] DIABETES CLINIC 2021-07-29 2021-07-29 [facility] [id number] Univers 12:53:28 23:59:00 CURTIS guzmán of [facility] 2021-07-29 2021-07-29 Office [facility] 1.2.840.114 [id number] Univers 13:30:00 14:00:00 Visit Curtis WHEELER 350.1.13.10 ity of [place].2.[place] [id number] [address] DIABETES CLINIC 2021-07-29 2021-07-29 Outpatient R PEYMAN [facility] [id number] Univers 13:30:00 13:30:00 CURTIS [facility] 2021-07-28 2021-07-28 Telephone [facility] 1.2.790.888 [id number] Univers 00:00:00 00:00:00 Curtis RAHMANPEC 350.1.13.10 ity of [facility] 4.2.7.2.686 [facility] [phone] [address] DIABETES CLINIC 2021-07-27 2021-07-27 Telephone [facility] 1.2.458.891 [id number] Univers 00:00:00 00:00:00 Curtis WHEELER 350.1.13.10 ity of [facility] 4.2.7.2.686 [facility] s [place] [id number] [address] DIABETES CLINIC 2021-07-20 2021-07-20 Outpatient Annalee BOOKER [facility] [id number] Univers 16:45:00 17:37:40 [facility] 2021-07-20 2021-07-20 Urgent Samina Booker [facility] 1.2.840.114 [id number] Univers 16:19:24 17:37:40 Care Unknown, Attending [place] 350.1.13.10 ity of PEDIATRIC [place].2.[place] [id number] [address] 2021-07-05 2021-07-05 Outpatient Annalee MORLEY [facility] [id number] Univers 10:00:00 10:00:00 CURTIS [facility] 2021-07-01 2021-07-01 Outpatient Annalee BOOKER [facility] [id number] Univers 16:00:00 14:32:17 [facility] 2021-07-01 2021-07-01 Nurse Nurse, Anthony Marroquin Urgent [facility] 1. 2.840.114 [id number] Univers 11:41:16 11:56:16 Visit Unknown, Attending [place] 350.1.13.10 ity of PEDIATRIC [place].7.2.[place] [id number] [facility] [address] 2021-06-30 2021-06-30 Telephone [facility] 1.2.241.121 [id number] Univers 00:00:00 00:00:00 Curtis WHEELER 350.1.13.10 ity of Sc[place]UCAS 4.2.7.2.686 [facility] [phone] [facility] AND [place] [address] DIABETES CLINIC 2021-06-28 2021-06-28 Nurse Therapy, Clc Covid Infusion [facility] 1.2.840.114 [id number] Univers 10:23:31 11:23:31 Visit Tejinder Valles [facility] 350.1.13.10 ity of DENIZ 4.2.7.2.686 [facility] [phone] [facility] [address] OFFICE BUILDING 2021-06-28 2021-06-28 Outpatient R HAI [facility] [id number] Univers 10:30:00 10:30:00 TEJINDER [facility] 2021-06-27 2021-06-27 Outpatient R AMOS [facility] [id number] Univers 09:00:00 09:00:00 RADHA [facility] 2021-06-27 2021-06-27 [facility]medici [facility] 1.2.840.114 [id number] Univers 08:22:01 08:52:01 ne Visit Radha SWEENEY 350.1.13.10 i ty of MEDICINE 4.2.7.2.686 [place] CL[place]IC - [phone] Med [facility] 2021-06-25 2021-06-25 Urgent Ashley Raines [facility] 1.2.840.114 [id number] Univers 09:06:44 09:55:18 Care Unknown, Attending [place] 350.1.13.10 ity of PEDIATRIC [place].7.2.[place] [id number] [place] [address] [address] 2021-06-25 2021-06-25 Outpatient R OLU [facility] [id number] Univers 09:00:00 09:55:18 ASHLEY guzmán o myriam [facility] 2021-06-06 2021-06-06 Urgent Ever Helm [facility] 1.2 .840.114 [id number] Univers 17:12:40 17:50:36 Care Unknown, Attending [place] 350.1.13.10 ity of Pediatric 4.2.7.2.686 [facility] [id number] [address] 2021-06-06 2021-06-06 Outpatient R UNKNOWN, [facility] [id number] Univers 17:15:00 17:15:00 ATTENDING ity of [facility] 2021-06-06 2021-06-06 Telephone [facility] 1.2.573.282 [id number] Univers 00:00:00 00:00:00 Curtis WHEELER 350.1.13.10 ity Tess LUCAS 4.2.7.2.686 [facility] [id number] [address] DIABETES CLINIC 2021-06-04 2021-06-04 [facility] 1.2.840.114 [id number] Univers 00:00:00 00:00:00 Radha SWEENEY 350.1.13.10 it y of MEDICINE 4.2.7.2.686 [place] CL[place] - [id number] [address] 2021-05-31 2021-05-31 [facility] 1.2.840.114 [id number] Univers 00:00:00 00:00:00 Radha SWEENEY 350.1.13.10 it y of MEDICINE 4.2.7.2.686 [place] - [phone] [address] 2021-05-20 2021-05-20 Telephone [facility] 1.2.391.625 [id number] Univers 00:00:00 00:00:00 Curtis WHEELER 350.1.13.10 ity Tess LUCAS 4.2.7.2.686 [facility] [id number] [facility] [address] DIABETES CLINIC 2021-05-03 2021-05-03 Patient Observer Lab, Anthony [facility] Stew Shane. [facility] 1 .2.840.114 [id number] Univers 09:27:09 09:42:09 Visit Barrington Venegas FAMILY 350.1.13.10 ity of MEDICINE 4.2.7.2.686 [place] CL[place]IC - [id number] [address] 2021-05-03 2021-05-03 Patient Observer Lab, Anthony [facility] [address] [facility] 1 .2.840.114 [id number] Univers 09:27:09 09:42:09 Visit Barrington Venegas 350.1.13.10 ity of MEDICINE 4.2.7.2.686 [place] - [phone] [address] 2021-05-03 2021-05-03 Outpatient Annalee MENDEZ [facility] [id number] Univers 08:00:00 08:00:00 CATALINA [facility] 2021-04-28 2021-04-28 Outpatient [facility] [id number] Univers 14:00:00 14:00:00 CURTIS [facility] 2021-04-28 2021-04-28 Honey [facility] 1.2.005.605 [id number] Univers 00:00:00 00:00:00 Curtis [facility] 350.1.13.10 ity [facility] 4.2.7.2.686 [facility] [id number] [address] DIABETES CLINIC 2021-04-25 2021-04-25 Office [facility] 1.2.840.114 [id number] Univers 15:41:06 16:11:06 Visit Catalina SWEENEY 350.1.13.10 ity of MEDICINE 4.2.7.2.686 [place] CL[place]IC - [id number] [address] 2021-04-25 2021-04-25 Outpatient Annalee MENDEZ [facility] [id number] Univers 13:30:00 13:30:00 CATALINA [facility] 2021-04-19 2021-04-19 Outpatient Annalee JOHNSON [facility] [id number] Univers 11:30:00 11:30:00 HEATH [facility] 2021-04-16 2021-04-16 Solis Trinidad [facility] 1.2.840.114 [id number] Univers 00:00:00 00:00:00 Radha SWEENEY 350.1.13.10 it y of MEDICINE 4.2.7.2.686 [place] CLINIC - [id number] [address] 2021-04-16 2021-04-16 [facility]is [facility] 1.2.840.114 [id number] Univers 00:00:00 00:00:00 Radha SWEENEY 350.1.13.10 it y of MEDICINE 4.2.7.2.686 [place] - [id number] [address] 2021-03-29 2021-03-29 Emergency IvyBrady W TRAUMA 1.2.840.11 [id number] Univers 16:04:00 23:55:00 Amando De La Rosa 350.1.13.10 it[place] of [place]2.7.2.686 [place] [id number] [facility] [address] 2021-03-28 2021-03-28 Patient Doctor JAVIER 1.2.840.114 [id number] Univers 00:00:00 00:00:00 Secure Msg Unassigned, JOLANTA 350.1.13.10 ity of [place] [facility] 4.2.7.2.686 [place] [id number] [facility] [address] 2021-03-28 2021-03-28 Letter JAVIER Parker 1.2.840.114 [id number] Univers 00:00:00 00:00:00 (Out) Norma STOVER 350.1.13.10 it y of HOSPITAL 4.2.7.2.686 [place] [id number] [facility] [address] 2021-03-27 2021-03-27 Telephone Jhony IATANYA 1.2.106.905 [id number] Univers 00:00:00 00:00:00 [facility] 350.1.13.10 it y of Pediatric [place].7.2.686 [place] [id number] [facility] [address] 2021-03-26 2021-03-26 Urgent Jhony [facility] 1.2.840.114 [id number] Univers 16:32:41 18:13:07 Care [facility] 350.1.13.10 it y of Pediatric 4.2.7.2.686 [place] [id number] [facility] [address] 2021-03-26 2021-03-26 Outpatient Annalee BOOKER [facility] [id number] Univers 16:30:00 16:30:00 SAMINA camryn [facility] 2021-03-25 2021-03-25 Outpatient R PEYMAN [facility] [id number] Univers 08:00:00 08:00:00 CURTIS guzmán [facility] 2021-03-24 2021-03-[address] [facility] 1.2.840.114 [id number] Univers 15:42:41 16:12:41 ne Visit New WHEELER 350.1.13.10 ity of IALTY 4.2.7.2.686 [facility] [id number] [facility] [address] DIABETES CLINIC 2021-03-24 2021-03-24 Outpatient Annalee CARRASCO [facility] [id number] Univers 16:00:00 16:00:00 NEW teresa f [facility] 2021-03-24 2021-03-24 Outpatient Annalee MORLEY [facility] [id number] Univers 09:30:00 09:30:00 CURTIS guzmán [facility] 2021-03-24 2021-03-24 Telephone [facility] 1.2.525.038 [id number] Univers 00:00:00 00:00:00 Curtis WHEELER 350.1.13.10 ity of [place] IALTY 4.2.7.2.686 [facility] [id number] [facility] [address] DIABETES CLINIC 2021-03-21 2021-03-21 Patient Observer Vtc-Lab [facility] 1.2.840.114 [id number] Univers 14:56:09 15:11:09 Visit New CarrascoPEC 350.1.13 .10 ity of IALTY 4.2.7.2.686 [facility] [place] [id number] [facility] [address] DIABETES CLINIC 2021-03-21 2021-03-21 [facility] [id number] Univers 14:45:00 14:45:00 NEW vogel [facility] 2021-03-21 2021-03-21 Telephone [facility] 1.2.051.238 [id number] Univers 00:00:00 00:00:00 Curtis WHEELER 350.1.13.10 ity of [place].2.[place].2.[place] [id number] [address] DIABETES CLINIC 2021-03-04 2021-03-[address] [facility] 1.2.840.114 [id number] Univers 00:00:00 00:00:00 Secure Msg New RAHMANPEC 350.1.13.10 ity of [place].2.7.2.686 [place] [id number] [address] DIABETES CLINIC 2021-03-02 2021-03-02 Refill [facility] 1.2.840.114 [id number] Univers 00:00:00 00:00:00 Radha SWEENEY 350.1.13.10 it y of MEDICINE 4.2.7.2.686 [place] CL[place]IC - [phone] Med [address] 2021-02-22 2021-02-22 Office [facility] 1.2.840.114 [id number] Univers 13:46:43 14:41:46 Visit New RAHMANPEC 350.1.13.10 ity of I[place] 4.2.7.2.[place] [id number] [address] DIABETES CLINIC 2021-02-22 2021-02-22 Outpatient R LUNA [facility] [id number] Univers 14:00:00 14:00:00 NEW vogel [facility] 2021-02-16 2021-02-16 Telephone [facility] 1.2.327.197 [id number] Univers 00:00:00 00:00:00 Radha SWEENEY 350.1.13.10 it y of MEDICINE 4.2.7.2.686 [place] CL[place]IC - [id number] [address] 2021-02-12 2021-02-12 Urgent Care, Gal Adult Urgent [facility] 1.2 .840.114 [id number] Univers 13:51:08 15:01:56 Care Unknown, Attending [place] 350.1.13.10 ity of Ashley Raines Pediatric 4.2.7.2.686 [facility] [id number] [address] 2021-02-12 2021-02-12 Outpatient R RUDDY [facility] [id number] Univers 13:45:00 13:45:00 ATTENDING itcamryn [facility] 2021-02-12 2021-02-12 Telephone [facility] 1.2.605.696 [id number] Univers 00:00:00 00:00:00 Curtis WHEELER 350.1.13.10 ity [place] 4.2.7.2.686 [place] [id number] [address] DIABETES CLINIC 2021-02-11 2021-02-11 Telephone Amos [facility] 1.2.265.327 [id number] Univers 00:00:00 00:00:00 Radha SWEENEY 350.1.13.10 it y of MEDICINE 4.2.7.2.686 [place] CL[place]IC - [id number] [address] 2021-02-08 2021-02-08 Outpatient R PEYMAN [facility] [id number] Univers 09:00:00 09:00:00 CURTIS camryn [facility] 2021-02-08 2021-02-08 Telephone Amos [facility] 1.2.710.837 [id number] Univers 00:00:00 00:00:00 Radha SWEENEY 350.1.13.10 it y of MEDICINE 4.2.7.2.686 [place] CL[place]IC - [id number] [address] 2021-02-01 2021-02-01 Telephone [facility] 1.2.551.612 [id number] Univers 00:00:00 00:00:00 Curtis WHEELER 350.1.13.10 ity [place].2.7.2.[place] [id number] [facility] [address] DIABETES CLINIC 2021-01-31 2021-01-31 Orders Doctor HERRERA 1.2.840.114 [id number] Univers 00:00:00 00:00:00 Only Unassigned, JOLANTA 350.1.13.10 [facility] 4.2.7.2.686 [place] [id number] [facility] [address] 2021-01-30 2021-01-30 Refgrand [facility] 1.2.840.114 [id number] Univers 00:00:00 00:00:00 Chan MULTISPEC 350.1.13.10 ity [facility] 4.2.7.2.686 [place] [facility] [id number] [facility] [address] DIABETES CLINIC 2021-01-30 2021-01-30 Refjo-ann [facility] 1.2.840.114 [id number] Univers 00:00:00 00:00:00 Radha SWEENEY 350.1.13.10 it y of MEDICINE 4.2.7.2.686 [place] CL[place]IC - [id number] [address] 2021-01-25 2021-01-25 Outpatient Annalee TRINIDAD [facility] [id number] Univers 13:30:00 13:30:00 [facility] 2021-01-24 2021-01-24 Office [facility] 1.2.840.114 [id number] Univers 15:50:41 16:59:23 Visit Radha SWEENEY 350.1.13.10 it y of MEDICINE 4.2.7.2.686 [place] CLINIC - [id number] [address] 2021-01-24 2021-01-24 Outpatient Annalee TRINIDAD [facility] [id number] Univers 16:00:00 16:00:00 RADHA [facility] 2021-01-20 2021-01-20 Outpatient Annalee TRINIDAD [facility] [id number] Univers 09:00:00 09:00:00 RADHA [facility] 2021-01-11 2021-01-11 Outpatient [facility] [id number] Univers 09:30:00 09:30:00 CURTIS guzmán [facility] 2021-01-07 2021-01-07 Outpatient R MARILU [facility] [id number] Univers 11:30:00 11:30:00 AZALIA mitchelcamryn [facility] 2021-01-05 2021-01-05 Telephone Amos [facility] 1.2.498.851 [id number] Univers 00:00:00 00:00:00 Radha SWEENEY 350.1.13.10 it y of MEDICINE 4.2.7.2.686 [place] CL[place]IC - [id number] [address] 2021-01-03 2021-01-03 Patient BRISEIDA Michel 1.2.474.953 [id number] Univers 00:00:00 00:00:00 Secure Msg Azalia [facility] 350.1.13.10 ity of CLINICS 4.2.7.2.686 [place] [id number] [facility] [address] 2020-12-31 2020-12-31 Patient Doctor JAVIER 1.2.840.114 [id number] Univers 00:00:00 00:00:00 Secure Msg Unassigned, JOLANTA 350.1.13.10 ity of [place] [facility] 4.2.7.2.686 [place] [id number] [facility] [address] 2020-12-31 2020-12-31 Refill Doctor [facility] 1.2.840.114 [id number] Univers 00:00:00 00:00:00 Unassigned, MULTISPEC 350.1.13.10 ity of [place] IALTY 4.2.7.2.686 [place] [id number] [facility] AND [place] [address] DIABETES CLINIC 2020-12-31 2020-12-31 Refill Emeli [facility] 1.2.840.114 [id number] Univers 00:00:00 00:00:00 Cait SWEENEY 350.1.13.10 it y of MEDICINE 4.2.7.2.686 [place] CL[place]IC - [id number] [address] 2020-12-31 2020-12-31 Refill Doctor [facility] 1.2.840.114 [id number] Univers 00:00:00 00:00:00 Unassigned, FAMILY 350.1.13.10 ity of [place] MEDICINE 4.2.7.2.686 [place] CLINIC - [id number] Med [facility] [address] [place] 2020-12-30 2020-12-30 Urgent Vineet Monika F [facility] 1. 2.840.114 [id number] Univers 17:19:08 17:34:08 Care Unknown, Attending [place] 350.1.13.10 ity of Pediatric 4.2.7.2.686 [facility] [id number] [facility] [address] 2020-12-30 2020-12-30 Outpatient R RUDDY [facility] [id number] Univers 17:15:00 17:15:00 ATTENDING ity of [facility] 2020-12-24 2020-12-24 Outpatient R MARILU [facility] [id number] Univers 10:30:00 10:30:00 AZALIA guzmán [facility] 2020-12-24 2020-12-24 Orders Doctor JAVIER 1.2.840.114 [id number] Univers 00:00:00 00:00:00 Only Unassigned, JOLANTA 350.1.13.10 ity of [place] [facility] 4.2.7.2.686 [place] [id number] [facility] [address] 2020-12-21 2020-12-21 Office Peyman [facility] 1.2.840.114 [id number] Univers 09:12:04 10:15:32 Visit Curtis WHEELER 350.1.13.10 ity of [place] 4.2.7.2.686 [facility] [id number] [facility] AND [place] [address] DIABETES CLINIC 2020-12-21 2020-12-21 Outpatient Annalee MORLEY [facility] [id number] Univers 09:30:00 09:30:00 CURTIS guzmán [facility] 2020-12-20 2020-12-20 Telephone Peyman [facility] 1.2.232.308 [id number] Univers 00:00:00 00:00:00 Curtis WHEELER 350.1.13.10 ity of [place] 4.2.7.2.686 [place] [id number] [address] DIABETES CLINIC 2020-12-14 2020-12-14 Office Jory, [facility] 1.2.483.265 [id number] Univers 08:55:44 08:56:16 Visit Camilo Cowan 350.1.13.10 i ty of [place] NATIONAL 4.2.7.2.686 [place] BANK [phone] [facility]. [address] 2020-12-14 2020-12-14 Outpatient [facility] [id number] Univers 08:15:00 08:15:00 CAMILO guzmán [facility] 2020-12-14 2020-12-14 Office Jory, [facility] 1.2.958.906 [id number] Univers 07:58:10 08:13:10 Visit Camilo Cowan 350.1.13.10 i ty of [facility] 4.2.7.2.686 [place] BANK [phone] [facility]. [address] 2020-12-14 2020-12-14 Outpatient R JORY [facility] [id number] Univers 08:00:00 08:00:00 CAMILO guzmán [facility] 2020-12-13 2020-12-13 Outpatient Annalee OBRIEN [facility] [id number] Univers 11:00:00 11:00:00 ORKEO itcamryn [facility] 2020-12-08 2020-12-08 Patient Doctor [facility] 1.2.399.842 [id number] Univers 00:00:00 00:00:00 Secure Msg Unassigned, Y HEALTH 350.1.13.10 ity of [place] CL[place] 4.2.7.2.686 [place] [id number] [facility] [address] 2020-12-03 2020-12-03 Office Jordan [facility] Resident [facility] 1.2.8 40.114 [id number] Univers 08:06:52 09:07:25 Visit Jenny Avila Y HEALTH 350.1.13.10 ity of CLINICS 4.2.7.2.686 [place] [id number] [address] 2020-12-03 2020-12-03 Outpatient R [facility] [id number] Univers 08:00:00 08:00:00 ity [facility] 2020-12-01 2020-12-01 Refill Amos [facility] 1.2.840.114 [id number] Univers 00:00:00 00:00:00 Radha SWEENEY 350.1.13.10 it y of MEDICINE 4.2.7.2.686 [place] - [id number] [address] 2020-11-29 2020-11-29 Patient Doctor [facility] 1.2.840.114 [id number] Univers 00:00:00 00:00:00 Secure Msg Unassigned, FAMILY 350.1.13.10 ity of [place] MEDICINE 4.2.7.2.686 [place] - [id number] [address] 2020-11-26 2020-11-26 Office BRISEIDA Guadalupe 1.2.027.621 [id number] Univers 09:13:13 09:43:13 Visit [facility] 350.1.13.10 ity of CLINICS 4.2.7.2.686 [place] [id number] [facility] [address] 2020-11-26 2020-11-26 Outpatient R ANAYELI [facility] [id number] Univers 09:00:00 09:00:00 [facility] 2020-11-15 2020-11-15 Outpatient R MICAH [facility] [id number] Univers 11:15:00 11:15:00 [facility] 2020-11-09 2020-11-09 Office Amos [facility] 1.2.840.114 [id number] Univers 16:30:40 17:00:40 Visit Radha FAMILY 350.1.13.10 it y of MEDICINE 4.2.7.2.686 [place] - [id number] [address] 2020-11-09 2020-11-09 Outpatient [facility] [id number] Univers 16:30:00 16:30:00 [facility] 2020-11-02 2020-11-02 Patient [facility] 1.2.840.114 [id number] Univers 00:00:00 00:00:00 Outreach [place] PRIMARY 350.1.13.10 i ty of [facility] 4.2.7.2.686 [place] [id number] Ma dical [address] 2020-10-29 2020-10-29 Telephone [facility] 1.2.878.488 [id number] Univers 00:00:00 00:00:00 Radha SWEENEY 350.1.13.10 it y of MEDICINE 4.2.7.2.686 [place] - [id number] [address] 2020-10-28 2020-10-28 [facility] 1.2.840.114 [id number] Univers 13:00:00 23:59:00 Encounter Radha Cowan [facility] 350.1.13.10 ity of CLINICS 4.2.7.2.686 [place] [id number] [facility] [address] 2020-10-28 2020-10-28 [facility] [id number] Univers 00:00:00 00:00:00 [facility] 2020-10-22 2020-10-22 Telephone [facility] [id number] Univers 00:00:00 00:00:00 Radha [place] 350.1.13.10 it y of MEDICINE 4.2.7.2.686 [place] - [phone] [address] 2020-10-21 2020-10-21 Office [facility] 1.2.840.114 [id number] Univers 08:04:47 08:59:28 Visit Radha [place] 350.1.13.10 it y of MEDICINE 4.2.7.2.686 [place] [facility] - [phone] [address] 2020-10-21 2020-10-21 [facility] [id number] Univers 08:00:00 08:00:00 [facility] 2020-10-18 2020-10-18 [facility] 1.2.840.114 [id number] Univers 07:52:00 11:07:00 Encounter Curtis ROLDAN 350.1.13.10 ity of [place] [phone] Ma krystal VICTOR 020 [facility] 2020-10-18 2020-10-18 Orders Doctor JAVIER 1.2.840.114 [id number] Univers 00:00:00 00:00:00 Only Unassigned, JOLANTA 350.1.13.10 ity of [facility] 4.2.7.2.686 [place] [phone] [facility] [address] 2020-10-15 2020-10-15 Laboratory Only, Pcp Test [facility] 1.2.840. 114 [id number] Univers 09:59:05 10:14:05 Only Curtis Morley PRIMARY 350.1.13.1 0 [place] [phone] Ma krystal [address] 2020-10-15 2020-10-15 [facility] [id number] Univers 10:00:00 10:00:00 CURTIS ramirez [facility] 2020-10-14 2020-10-14 Telephone [facility] [id number] Univers 00:00:00 00:00:00 Radha [place] 350.1.13.10 it y of MEDICINE 4.2.7.2.686 [place] [facility] - [phone] [address] 2020-10-14 2020-10-14 Telephone [facility] 1.2.292.507 [id number] Univers 00:00:00 00:00:00 Radha [place] 350.1.13.10 it y of MEDICINE 4.2.7.2.686 [place] - [phone] [address] 2020-10-14 2020-10-14 Telephone [facility] 1.2.840.114 [id number] Univers 00:00:00 00:00:00 [facility] 350.1.13.10 ity of [place] - [phone] [facility] [address] 2020-10-13 2020-10-13 Office Amos [facility] 1.2.840.114 [id number] Univers 08:47:44 10:04:25 Visit Radha [place] 350.1.13.10 it y of MEDICINE 4.2.7.2.686 [place] [facility] - [phone] [facility] [address] [place] 2020-10-13 2020-10-13 Outpatient R AMOS [facility] [id number] Univers 09:00:00 09:00:00 RADHA guzmán [facility] 2020-10-11 2020-10-11 Outpatient R MICAH [facility] [id number] Univers 11:15:00 11:15:00 EMILY [facility] 2020-10-06 2020-10-06 Patient Doctor JAVIER 1.2.840.114 [id number] Univers 00:00:00 00:00:00 Secure Msg Unassigned, [place] 350.1.13.10 [place] [facility] 4.2.7.2.686 [place] [phone] [facility] [address] 2020-09-24 2020-09-24 Aiyana Llanes UNIVERSIT 1.2.840.114 [id number] Univers 00:00:00 00:00:00 Y HEALTH 350.1.13.10 i ty of CL[place]ICS [place] [id number] [facility] [address] 2020-09-23 2020-09-23 Office [facility] 1.2.840.114 [id number] Univers 08:43:07 09:51:11 Visit Curtis WHEELER 350.1.13.10 ity of [place] [phone] [facility] AND MASSENA [address] DIABETES CLINIC 2020-09-23 2020-09-23 Outpatient [facility] [id number] Univers 09:00:00 09:00:00 CURTIS guzmán [facility] 2020-09-23 2020-09-23 Prep For Harley [facility] 1.2.840.114 [id number] Univers 00:00:00 00:00:00 Surgery Chan MULTISPEC 350.1.13.10 ity of [facility] 4.2.7.2.686 [facility] [id number] [facility] AND [address] DIABETES CLINIC 2020-09-17 2020-09-17 Outpatient R [facility] [id number] Univers 14:30:00 14:30:00 ity of [facility] 2020-09-13 2020-09-13 Letter JAVIER Parker 1.2.840.114 [id number] Univers 00:00:00 00:00:00 (Out) Norma Burch JOLANTA 350.1.13.10 it y of [facility] 4.2.7.2.686 [facility] [id number] [facility] [address] 2020-09-11 2020-09-11 Urgent [facility] 1.2.840.114 [id number] Univers 11:21:37 11:36:37 Care Pending Sale To [facility] 350.1.13.10 i ty of Pediatric [place]2.[place] [phone] [address] 2020-09-11 2020-09-11 Outpatient R OLU [facility] [id number] Univers 11:30:00 11:30:00 ASHLEY velezy o f [facility] 2020-09-08 2020-09-08 [facility]an [facility] 1.2.840.114 [id number] Univers 19:59:31 20:28:35 Care [facility] 350.1.13.10 it y of Pediatric 4.2.7.2.686 [place] [id number] [address] 2020-09-08 2020-09-08 Outpatient [facility] [id number] Univers 19:45:00 19:45:00 [facility] 2020-09-02 2020-09-02 Patient Observer [facility] UNIVERSIT 1.2.840.114 [id number] Univers 16:33:28 16:48:28 Visit Skyler Ferrari Y HEALTH 350.1.13 .10 ity of CLINICS [place] [id number] [facility] [address] 2020-09-02 2020-09-02 Office Abbey DARCIMITCHEL 1.2.840.114 [id number] Univers 16:03:20 16:33:20 Visit Skyler [facility] 350.1.13.10 ity of CLINICS [place] [id number] [facility] [address] 2020-09-02 2020-09-02 Outpatient R SKYLER FERRARI [facility] [id number] Univers 16:00:00 16:00:00 SKYLER FERRARI ity [facility] 2020-08-27 2020-08-27 Office [facility] 1.2.388.572 [id number] Univers 10:22:19 11:41:08 Visit [facility] 350.1.13.10 ity of [place] - [phone] [facility] [address] 2020-08-27 2020-08-27 Outpatient R [facility] [id number] Univers 10:30:00 10:30:00 ORPHEUS ity [facility] 2020-08-27 2020-08-27 Orders Doctor HERRERA 1.2.840.114 [id number] Univers 00:00:00 00:00:00 Only Unassigned, JOLANTA 350.1.13.10 it[place] of [place] [facility] 4.2.7.2.686 [place] [phone] [facility] [address] 2020-08-20 2020-08-20 Outpatient R [facility] [id number] Univers 13:00:00 13:00:00 ORPHEUS ity [facility] 2020-08-19 2020-08-19 Office BRISEIDA Mixon 1.2.840.114 [id number] Univers 10:34:33 11:38:15 Visit [facility] 350.1.13.10 i ty of CLINICS [place] [id number] [facility] [address] 2020-08-19 2020-08-19 Outpatient R ORAL [facility] [id number] Univers 10:30:00 10:30:00 MICHELINE [facility] 2020-08-17 2020-08-17 Patient Anayeli [facility] 1.2.840.114 [id number] Univers 00:00:00 00:00:00 Secure Msg [facility] 350.1.13.10 ity of [place] 4.2.7.2.686 [place] [phone] [place] [address] [place] [facility] [address] 2020-08-12 2020-08-12 Outpatient R SKYLER FERRARI [facility] [id number] Univers 09:30:00 09:30:00 SKYLER FERRARI [facility] 2020-07-31 2020-07-31 Urgent [facility] 1.2.840.114 [id number] Univers 16:16:45 16:31:45 Care Pending Sale To [facility] 350.1.13.10 i ty of Pediatric 4.2.7.2.686 Te [facility] [id number] [facility] [address] 2020-07-31 2020-07-31 Outpatient [facility] [id number] Univers 16:15:00 16:15:00 ASHLEY guzmán o f [facility] 2020-07-31 2020-07-31 Patient Doctor JAVIER 1.2.840.114 [id number] Univers 00:00:00 00:00:00 Secure Msg Unassigned, JOLANTA 350.1.13.10 [place] [facility] 4.2.7.2.686 [place] [id number] [facility] [address] 2020-07-31 2020-07-31 Orders Doctor JAVIER 1.2.840.114 [id number] Univers 00:00:00 00:00:00 Only Unassigned, JOLANTA 350.1.13.10 [place] [facility] 4.2.7.2.686 [place] [id number] [facility] [address] 2020-07-29 2020-07-29 Patient Doctor JAVIER Cooper2.840.114 [id number] Univers 00:00:00 00:00:00 Secure Msg Unassigned, JOLANTA 350.1.13.10 it[place] [facility] [place] [facility] 4.2.7.2.686 [place] [id number] [facility] [address] [place] 2020-07-28 2020-07-28 Urgent Samina Booker A [facility] 1.2.840.114 [id number] Univers 16:05:38 16:20:38 Care Unknown, [facility] 350.1.13.10 ity of Pediatric 4.2.7.2.[place] [id number] [facility] [address] [place] 2020-07-28 2020-07-28 Outpatient R [facility] [id number] Univers 16:15:00 16:15:00 ATTENDING ity of [facility] 2020-07-27 2020-07-27 Telephone [facility] 1.2.653.063 [id number] Univers 00:00:00 00:00:00 Radha SWEENEY 350.1.13.10 it y of MEDICINE 4.2.7.2.686 [place] CL[place] - [phone] [address] 2020-07-27 2020-07-27 Telephone [facility] 1.2.019.679 [id number] Univers 00:00:00 00:00:00 Radha FAMILY 350.1.13.10 it y of MEDICINE 4.2.7.2.686 [place] - [id number] [address] 2020-07-27 2020-07-27 Telephone [facility] 1.2.029.526 [id number] Univers 00:00:00 00:00:00 Radha FAMILY 350.1.13.10 it y of MEDICINE 4.2.7.2.686 [place]IC - [id number] [address] 2020-07-23 2020-07-23 Office Aiyana Hollingsworth UNIVERSIT 1..840.114 7 [id number] Univers 14:42:56 15:29:43 Visit Y HEALTH 350.1.13.10 i ty of CLINICS [place] [id number] [facility] [address] [place] 2020-07-23 2020-07-23 Outpatient R AIYANA HOLLINGSWORTH [facility] [id number] Univers 14:45:00 14:45:00 ity of [facility] 2020-07-23 2020-07-23 Ancillary Andrea Galeano Maki Umanzor [facility] 1.2.840.114 [id number] Univers 10:06:48 10:46:48 Visit Brady Kang PRIMARY 350.1.13.10 ity of CARE [place] [id number] [address] 2020-07-23 2020-07-23 Telephone Amos [facility] 1.2.459.772 [id number] Univers 00:00:00 00:00:00 Radha FAMILY 350.1.13.10 it y of MEDICINE 4.2.7.2.686 [place] - [id number] [address] 2020-07-22 2020-07-22 Nurse Bessie Alexandre 1.2.840.114 [id number] Univers 00:00:00 00:00:00 Triage [place] 350.1.13.10 it y of HOSPITAL 4.2.7.2.686 [place] [id number] [facility] [address] 2020-07-17 2020-07-17 Hospital [facility] 1.2.534.048 [id number] Univers 12:40:52 23:59:00 Encounter Skyler [facility] 350.1.13.10 it[place] [id number] [facility] 804 [address] ([facility]) 2020-07-17 2020-07-17 Outpatient SKYLER DOUGHERTY [facility] [id number] Univers 12:40:52 23:59:00 SKYLER FERRARI ity of [facility] 2020-07-16 2020-07-16 Office Fellow, Cardiology UNIVERSIT 1.2.8 40.114 [id number] Univers 13:30:27 14:23:07 Visit Taurus Guadalupe 350.1.13.10 ity of CLINICS [place] [id number] [place] [address] [place] 2020-07-16 2020-07-16 Outpatient Annalee GUADALUPE [facility] [id number] Univers 13:30:00 13:30:00 CONDON ity o f [facility] 2020-07-15 2020-07-15 Outpatient SKYLER DOUGHERTY [facility] [id number] Univers 12:00:00 12:00:00 SKYLER FERRARI camryn [facility] 2020-07-13 2020-07-13 Office Valente [facility] 1.2.840.114 [id number] Univers 10:03:54 12:32:51 Visit Octavio Young [place] 350.1.13.10 it y of MEDICINE 4.2.7.2.686 [place] - [id number] [address] 2020-07-13 2020-07-13 Outpatient Annalee ANDERSON [facility] [id number] Univers 10:10:00 10:10:00 OCTAVIO guzmán [facility] 2020-07-13 2020-07-13 Ancillary Cody Rain [facility] 1.2. 840.114 [id number] Univers 08:09:29 09:09:29 Visit Brady Kang 350.1.13.10 ity of CARE [place] [id number] Ma dical [address] [place] 2020-07-13 2020-07-13 Outpatient Annalee KANG [facility] [id number] Univers 08:00:00 08:00:00 BRADY guzmán [facility] 2020-06-30 2020-06-30 Office BRISEIDA Ferrari 1.2.840.114 [id number] Univers 15:35:16 16:05:16 Visit Skyler [facility] 350.1.13.10 ity of CLINICS [place] [id number] [facility] [address] 2020-06-30 2020-06-30 Outpatient SKYLER DOUGHERTY [facility] [id number] Univers 15:30:00 15:30:00 SKYLER FERRARI [facility] 2020-06-30 2020-06-30 Office Agustín [facility] 1.2.840.114 [id number] Univers 09:49:13 10:57:25 Visit Lucille N FAMILY 350.1.13.10 i ty of MEDICINE 4.2.7.2.686 [place] - [phone] [address] 2020-06-25 2020-06-25 Office Edel Aiyana [facility]ERS[facility] 1.2.840.114 [id number] Univers 14:51:00 16:02:06 Visit Camryn GOMEZ 350.1.13.10 i ty of CLINICS [place] [id number] [address] 2020-06-25 2020-06-25 Outpatient R AIYANA HOLLINGSWORTH [facility] [id number] Univers 15:00:00 15:00:00 ity [facility] 2020-06-23 2020-06-23 Telephone [facility] 1.2.619.239 [id number] Univers 00:00:00 00:00:00 Radha FAMILY 350.1.13.10 it y of MEDICINE 4.2.7.2.686 [place] - [id number] [address] 2020-06-22 2020-06-22 Outpatient [facility] [id number] Univers 08:00:00 08:00:00 [facility] 2020-06-22 2020-06-22 Refill Doctor [facility] 1.2.840.114 [id number] Univers 00:00:00 00:00:00 Unassigned, FAMILY 350.1.13.10 [place] MEDICINE 4.2.7.2.686 [place] - [id number] [address] 2020-06-14 2020-06-14 Office [facility] 1.2.840.114 [id number] Univers 12:54:45 14:42:06 Visit Lucille Christ 350.1.13.10 i ty of MEDICINE 4.2.7.2.686 [place] - [id number] [address] 2020-06-14 2020-06-14 Outpatient Annalee BANKS [facility] [id number] Univers 13:00:00 13:00:00 LUCILLE guzmán [facility] 2020-06-07 2020-06-07 Office [facility] 1.2.840.114 [id number] Univers 08:59:10 10:09:23 Visit Radha SWEENEY 350.1.13.10 it y of MEDICINE 4.2.7.2.686 [place] - [id number] [address] 2020-06-07 2020-06-07 Outpatient [facility] [id number] Univers 09:00:00 09:00:00 RDAHA ity of [facility] 2020-06-07 2020-06-07 Patient Doctor BRISEIDA 1.2.141.583 [id number] Univers 00:00:00 00:00:00 Secure Msg Unassigned, Y HEALTH 350.1.13.10 [place] [id number] [facility] [address] [place] 2020-06-05 2020-06-05 Telephone JAVIER Ace 1.2.277.095 [id number] Univers 00:00:00 00:00:00 Yiyogi JOLANTA 350.1.13.10 it y of HOSPITAL 4.2.7.2.686 [place] [id number] [facility] [address] [place] 2020-06-05 2020-06-05 Telephone BRISEIDA Ace 1.2.840.114 [id number] Univers 00:00:00 00:00:00 Yihkeara Y HEALTH 350.1.13.10 i ty of CL[place]ICS [place] [id number] [facility] [address] [place] 2020-06-05 2020-06-05 Telephone JAVIER Grigsby 1.2.840.114 [id number] Univers 00:00:00 00:00:00 Tony JOLANTA 350.1.13.10 it y of HOSPITAL 4.2.7.2.686 [place] [id number] [facility] [address] [place] 2020-06-05 2020-06-05 Patient Doctor JAVIER 1.2.840.114 [id number] Univers 00:00:00 00:00:00 Secure Msg Unassigned, JOLANTA 350.1.13.10 [place] [facility] 4.2.7.2.686 [place] [id number] [facility] [address] [place] 2020-06-05 2020-06-05 Patient Doctor JAVIER 1.2.840.114 [id number] Univers 00:00:00 00:00:00 Secure Msg Unassigned, JOLANTA 350.1.13.10 it[place] [facility] 4.2.7.2.686 [place] [id number] [facility] [address] [place] 2020-06-04 2020-06-04 Office Jordan, [facility] Resident UNIVERSIT 1.2.8 40.114 [id number] Univers 15:21:29 16:31:00 Visit Keri Yee [facility] 350.1.13.10 ity of CLINICS [place] [id number] [facility] [address] [place] 2020-06-04 2020-06-04 Outpatient R [facility] [id number] Univers 15:30:00 15:30:00 ity of [facility] 2020-06-04 2020-06-04 Patient Doctor UNIVERSMITCHEL 1.2.158.321 [id number] Univers 00:00:00 00:00:00 Secure Msg Unassigned, HEALTH 350.1.13.10 [place] 289.8970319 [facility] [address] [place] 2020-06-03 2020-06-03 Office BRISEIDA Mixon 1.2.840.114 [id number] Univers 10:01:28 10:31:28 Visit [facility] 350.1.13.10 i ty of CLINICS [place].2.[place] [id number] [facility] [address] [place] 2020-06-03 2020-06-03 Outpatient [facility] [id number] Univers 10:00:00 10:00:00 MICHELINE ity [facility] 2020-06-02 2020-06-02 Patient Reep, [facility] 1.2.840.114 [id number] Univers 00:00:00 00:00:00 Secure Msg Norbert L SPECIALTY 350.1.13.10 ity of C[place] AT [id number] Ma dic[address] 2020-05-31 2020-05-31 Telephone BRISEIDA Mixon 1.2.840.114 [id number] Univers 00:00:00 00:00:00 Micheline Y HEALTH 350.1.13.10 i ty of CLINICS 4.[place].2.[place] [id number] [facility] [address] 2020-05-31 2020-05-31 Telephone Pcp, [facility] 1.2.840.114 [id number] Univers 00:00:00 00:00:00 Patient Y HEALTH 350.1.13.10 i ty of Does Not CLINICS 4.2.7.2.686 [place] Have A 334.1138835 [facility] [address] 2020-05-28 2020-05-28 Hospital Emily [facility] 1.2.840.114 [id number] Univers 08:52:00 12:40:00 Encounter Norbert [facility] 350.1.13.10 ity [place] [id number] [address] ([facility]) 2020-05-28 2020-05-28 Orders Doctor JAVIER 1.2.840.114 [id number] Univers 00:00:00 00:00:00 Only Unassigned, JOLANTA 350.1.13.10 it[place] of [place] [facility] 4.2.7.2.686 [place] [id number] [facility] [address] [place] 2020-05-25 2020-05-25 Patient Observer Lab, [facility] [address] [facility] 1 .2.840.114 [id number] Univers 08:25:23 08:40:23 Visit Goryd Corbett 350.1.13.1 0 ity of MEDICINE 4.2.7.2.686 [place] - [id number] [facility] [address] [facility] 2020-05-25 2020-05-25 Outpatient R SOLIS [facility] [id number] Univers 08:30:00 08:30:00 GORDY guzmán [facility] 2020-05-24 2020-05-24 Laboratory Only, Pcp Test [facility] 1.2.840. 114 [id number] Univers 08:26:48 08:41:48 Only Norbert Diaz PRIMARY 350.1.13.10 ity of CARE [place] [id number] Ma dicolena [address] 2020-05-24 2020-05-24 Outpatient R EMILY NORBERT [facility] [id number] Univers 08:30:00 08:30:00 EMILY NORBERT [facility] 2020-05-17 2020-05-17 Patient Emeli [facility] 1.2.840.114 [id number] Univers 00:00:00 00:00:00 Secure Msg Cait PRIMARY 350.1.13.10 ity of CARE [place] [id number] Ma dicga [address] [place] 2020-05-14 2020-05-14 Patient Observer Lab, [facility] [address] [facility] 1 .2.840.114 [id number] Univers 13:06:12 13:21:12 Visit Elder Tena 350.1.13.1 0 ity of MEDICINE 4.2.7.2.686 [place] - [id number] [address] 2020-05-14 2020-05-14 Outpatient R DARINEL [facility] [id number] Univers 13:15:00 13:15:00 ELDER guzmán [facility] 2020-05-13 2020-05-13 Office Emeli [facility] 1.2.840.114 [id number] Univers 13:18:56 17:12:41 Visit Cait [place] 350.1.13.10 it y of MEDICINE 4.2.7.2.686 [place] - [phone] [address] 2020-05-13 2020-05-13 Office BRISEIDA Mixon 1.2.840.114 [id number] Univers 10:24:15 11:30:53 Visit [facility] 350.1.13.10 i ty of CLINICS [place] [id number] [facility] [address] [place] 2020-05-13 2020-05-13 Outpatient R ORAL [facility] [id number] Univers 10:30:00 10:30:00 MICHELINE [facility] 2020-05-13 2020-05-13 Orders Doctor JAVIER 1.2.840.114 [id number] Univers 00:00:00 00:00:00 Only Unassigned, JOLANTA 350.1.13.10 [place] of [place] [facility] 4.2.7.2.686 [place] [id number] [facility] [address] [place] 2020-05-10 2020-05-10 Patient Doctor JAVIER 1.2.840.114 [id number] Univers 00:00:00 00:00:00 Secure Msg Unassigned, [place] 350.1.13.10 ity of [place] [facility] 4.2.7.2.686 [place] [id number] [facility] [address] [place] 2020-05-10 2020-05-10 Letter Elena, JAVIER 1.2.840.114 [id number] Univers 00:00:00 00:00:00 (Out) Norma Burch JOL[place]A 350.1.13.10 it y of HOSPITAL 4.2.7.2.686 [place] [id number] [facility] [address] [place] 2020-05-09 2020-05-09 Urgent Samina Booker [facility] 1.2.840.114 [id number] Univers 10:57:08 11:59:21 Care Unknown, Attending [place] 350.1.13.10 ity of [facility] 4.2.7.2.686 [facility] [phone] [facility] [address] [place] 2020-05-09 2020-05-09 Outpatient R RUDDY [facility] [id number] Univers 11:00:00 11:00:00 ATTENDING ity [facility] 2020-02-09 2020-02-09 Solis Mejia [facility] 1.2.705.695 [id number] Univers 00:00:00 00:00:00 Odilia Smith FAMILY 350.1.13.10 ty of MEDICINE 4.2.7.2.686 [place] - [id number] [address] 2020-01-27 2020-01-27 Outpatient SKYLER DOUGHERTY [facility] [id number] Univers 13:30:00 13:30:00 SKYLER FERRARI [facility] 2019-10-23 2019-10-23 Outpatient SKYLER DOUGHERTY [facility] [id number] Univers 00:00:00 00:00:00 SKYLER FERRARI ity of [facility] 2019-10-10 2019-10-10 Telephone Abbey [facility] 1.2.840.114 [id number] Univers 00:00:00 00:00:00 Skyler Gene PRIMARY 350.1.13.10 it[place] of C[place] [id number] [address] 2019-10-10 2019-10-10 Patient Doctor [facility] 1.2.288.406 [id number] Univers 00:00:00 00:00:00 Secure Msg Unassigned, Y HEALTH 350.1.13.10 [place].2.[place].2.[place] [id number] [facility] [address] [place] 2019-10-09 2019-10-09 Telephone Abbey [facility] 1.2.840.114 [id number] Univers 00:00:00 00:00:00 Skyler Gene PRIMARY 350.1.13.10 ity of CARE [place] [id number] [address] 2019-09-16 2019-09-16 Office Olivia [facility] 1.2.977.185 [id number] Univers 17:21:41 17:51:06 Visit Odilia S[place]Y 350.1.13.10 i ty of MEDICINE 4.2.7.2.686 [place] - [id number] [address] 2019-09-16 2019-09-16 Outpatient Annalee MEJIA [facility] [id number] Univers 17:20:00 17:51:06 ODILIA ity of [facility] 2019-08-26 2019-08-26 Patient Observer Lab, Anthony [facility] [address] [facility] 1 .2.840.114 [id number] Univers 10:42:50 13:40:32 Visit Elaina Live FAMILY 350.1.13.10 ity of MEDICINE 4.2.7.2.686 [place] - [id number] [address] 2019-07-17 2019-07-17 Emergency X STEPHANIE [facility] ERT [id number] Univers 11:47:16 16:16:00 APPLE mitchelcamryn [facility] 2019-04-08 2019-04-08 Outpatient DIA LuqueW [facility]W [id number] [facility] 10:55:00 10:55:00 [facility] 2019-03-17 2019-03-17 Outpatient Walk-In, CHW CHW [id number] [facility] 11:00:00 11:00:00 [facility] 2019-03-13 2019-03-13 Outpatient Adam, CHW CHW [id number] [facility] 16:00:00 16:00:00 [facility] 2019-03-01 2019-03-01 Outpatient DIA LuqueW CHW [id number] [facility] 10:49:00 10:49:00 [facility] 2019-02-25 2019-02-25 Outpatient DIA LuqueW CHW [id number] [facility] 07:47:00 07:47:[address] [facility] 2019-02-24 2019-02-24 Outpatient Ene, DIAW CHW [id number] [facility] 12:40:00 12:40:00 [facility] 2019-02-20 2019-02-20 Outpatient DIA LuqueW CHW [id number] [facility] 11:19:00 11:19:[address] [facility] 2019-02-19 2019-02-19 Outpatient DIA LuqueW CHW [id number] [facility] 15:20:00 15:20:[address] [facility] 2019-02-06 2019-02-06 Outpatient Steve, DIAW CHW [id number] [facility] 15:50:00 15:50:00 [facility] 2019-01-07 2019-01-07 Outpatient Steve, DIAW CHW [id number] [facility] 16:14:00 16:14:00 [facility] 2018-12-09 2018-12-09 Outpatient Steve, CHW CHW [id number] [facility] 09:46:00 09:46:00 [facility] 2018-11-19 2018-11-19 Outpatient DIA MartinezW CHW [id number] [facility] 08:00:00 08:00:00 [facility] 2018-10-29 2018-10-29 Outpatient Martinez, W W [id number] [facility] 16:00:00 16:00:00 [facility] sudarshan [facility] 2018-10-14 2018-10-14 Outpatient Walk-In, W W [id number] [facility] 14:20:00 14:20:00 [facility] sudarshan [facility] 2018-10-12 2018-10-12 [facility] [id number] 09:20:00 09:20:00 [facility] 2018-10-09 2018-10-09 [facility] [id number] 15:00:00 15:00:00 [facility] 2018-08-28 2018-08-28 [facility] [id number] [facility] 10:37:00 10:37:00 [facility] 2018-08-26 2018-08-26 [facility] [id number] [facility] 11:40:00 11:40:00 [facility] 2018-08-16 2018-08-16 [facility] [id number] [facility] 08:18:00 08:18:00 [facility] 2018-08-09 2018-08-09 [facility] [id number] 10:39:00 10:39:00 [facility] 2018-08-08 2018-08-08 Outpatient Wilson, [facility] [id number] [facility] 16:20:00 16:20:00 [facility] Results Test Description Test Time Test Comments Results Result Comments Source POCT GLUCOSE (AUTOMATED) 2023-05-11 18:13:39 Test Item Value Reference Range Interpretation Comme nts POCT GLU (test code = 5061848527) 144 mg/dL 70-110 H Lab Interpretation (test code = 42407-0) Abnormal [facility]2023-05-11 18:13:39 Test Item Value Reference Range Interpretation Comments POCT GLU (test code = 5740004898) 144 mg/dL 70-110 H Lab Interpretation (test code = Abnormal 15384-4) [facility] (DX) W/REFL TITER AND$CONFIRMATORY [id number] 17:00:00 Test Item Value Reference Range Interpretation Comments RPR (DX) W/REFL NON-REACTIVE NON-REACTI REPORT TITER COMMENT:FASTING :YE AND$CONFIRMATOR S Y TESTING-Q (test code = 78427-1) [facility] (test code PERFORMED BY [facility] = [facility]) [facility]; [address] [place] [address]; SAMAN JOYNER MD,PHD. [facility] [id number] 18:58:00 Test Item Value Reference Range Interpretation Comments POCT PREG (test code = 1605) Negative On board controls acceptable with C Yes Line (test code = 3574) POCT PREG LOT # (test code = 3575) POCT PREG TEST DATE (test code = 3576) [facility] [id number] 18:58:00 Test Item Value Reference Range Interpretation Comments POCT PREG (test code = 1605) Negative On board controls acceptable with C Yes Line (test code = 3574) POCT PREG LOT # (test code = 3575) POCT PREG TEST DATE (test code = 3576) [facility] [id number] 17:26:34 Test Item Value Reference Range Interpretation Comments Case Report (test code Surgical Pathology ? ? = [id number]) ?Case: [id number] ? Authorizing Provider: ?Norbert Diaz MD ?Collected: ? 04/09/2023 0905 ?Ordering Location: ? ? [facility] ? ? Received: ?04/09/2023 1134 ? Center ? Pathologist: ? Karime Rubio MD ? Specimens: ? A) - STOMACH, 1. GASTRIC BX EVAL H. PYLORI ? B) - ESOPHAGUS, 2. DISTAL ESOPHAGEAL BX EVAL EOE ? C) - ESOPHAGUS, 3. PROXIMAL ESOPHAGEAL BX EVAL EOE ? Final Diagnosis (test y2hfcLWbITMhk1orTKEnxF code = [id number]) FuZzEwMzNcZnRuYmpcdWMx IHtccnRmMVxhbnNpXGRlZm tjnazeTZWgULJ2ejMeLZHr WXA6ONZ7MeYkQOPtXsRbMP VkSIHxd4dbn6ApvMExjNZp OSwcgSOywiKump20qVY6nH 30KQ8kZDVuUgA9BZMxrvB5 Nue2QQDkYLVoxRWfF121u7 hyb0uambUfvUD4tZptZJKm mgkiZaJ3CHrdENBxroltKV b8EAoqMXEfdOS5ZDItjMSb J8PzRHIzDQ5qwxi8HNR7FH mdXQKsZlK3YGGydPEkBPLh cOvpRUqpw406CAV1OgBlUM OwmdBcrZeciE2tTrRfGPwn BSXsGV9bL9JOOZVSZNcsJw lPUFNZOlxwYXJcZmkyODMg MXNIQOYZUnzGBK2UB97PFA QDAEAEYX6WRROMJDyYCN7Z SJTkC9qCIgkXZDNcxdDhBJ 5PIElOVEVTVElOQUwgTUVU QVBMQVNJQSBJREVOVElGSU VEXHBhclxmaTAgICAgICAt BL8VGIxwZVXDGV2IZMWGNh dBTklTTVMgSURFTlRJRklF RCBccGFyXGZzMjJccGFyXG PgDpXbXh9bMLKZRAfLW6TF PTBWZGGPXOtmKAGIK6JWNY pccGFyICAgICAtIFNRVUFN W8PDJUOPMWKYOQuQLY6uO2 tZNUKEOcPYIFQYM2dDP1pJ EDsmL5jFDqhIZJqgIHGaVW YsSA9iQu0wOBGDNGFNQ3Ob C6PkKQ0VRT9JAAzCHPxZTN QPM9YAZWpFPAaWRUcDVL5R SUZJRUQgXHBhclxmczIyXH ThgivsuoScHRFdSGVQU8TW QUdVUywgUFJPWElNQUwsIE PKY8MINTyzuCAaHRXzNIAl JRQOHTJZN4QAACOBBBPKKC lXBI1aG2oBAFBSFaDQIKSK L6hUF5kKLWxyU9lSWmiKCM ctHRRkUNRjPA9lWw7eIYCT AUGNK1AeL5OjVM2YDD5KNG kVIZnGASWJA7KKBCqIDIaP SQuKMP2KSYRXCKDoWPNqce jxVWEvVJBexl87SQK1OkRe v3K9UFAyTqIaDBVaQT4lpZ wuRNZbPD2uTTEhS4qzyP4o udg8PjRzHREfUiH1LBGuby Z8Obl3RYDfHQdzj7bxj0Sj B5HeeECeuZr0m2fvEVEtBd N7aZMoCHniQ9pmxeUlrMUa CPEgALd7hTbbVuPcRLVak6 lzcyBcZmNoYXJzZXQwIENh mEpumog8gA03TJEloD7chK TmHTmeoxPiCbA8MKcbNLGv QlK1JAPctRVyXZHrU8hdED QwXGdyZWVuMFxibHVlMCA7 fDvnz2F1cAXgcXZurAvaFr SdXqFkBILRt5FdXZm3fSro Z6BcYDSrFpS7bUWkIZCvLB vfIUDvYVDrycU0nT99EIuz tvU3lQQzd2Zuf11sa718bU 0jqWHjTOF7NEHsEFIlzYYs LWLtBLC3KXRxvOQhO7oqMS BtID4bhtvnXSucVGsrRTRe xLG0DRNzyQVgY1RbGKPcRO vaCRPjkzm5IeVcWe6mvETc lDlyWYyfd3zmo7wnuEEpNg v1RNVeGcMyYzcxSSgvj2Kz f0oaNUXrbz5dTZH2aPYxqY rcy4O8lKVqDECjuGIhywIq DBGyVhV2APisST3vhh98BN KuGFM8ns0glYIuiYwweaTv rHIlPMjzU9QaVBIeb957NB YhP2NkKOOmw8N7moUiExRj VUBtkWS8wcC1KESnPMl4gG XateP1mkMawJEnS4agiS2l SAQtQS1pbtemv1twGUhaMH upMYCczJD0ktU4NBIryKOr G7YizM0lNMViLZqgQJQmsp f5NtZqMq5cxMYwgChuPNpn YmtwYWdlXHBnbmNvbnRccG duZGVjXHBsYWluXHBsYWlu XGYwXGZzMjRccWxccGxhaW 4zBgOsLoStZDybQV8tMPGc Q0wgdELfWRKyIRCvF5iuDo JgtH4stPliWCijIcJkCyLk MFxwYXIgSSBoYXZlIHBlcn ZwwlRmvZdppaR1rYQ6GUZu ZMobSSJmFTIloSXgnn2ezC sbQDJeZI9dLKRvzbXpJQrr lIssRSuxQYY5KKDniZXrbC MgbWFkZSBieSByZXNpZGVu oSYhQLMbaCgta1Seg6VwcY G4xN1lx9rnz0CjSIFnyCT2 VL88jaO4sA4jKNKnYL8lYC ZgMI5clAYugTJgSFZyg00a dGhpcyByZXBvcnQuXHBsYW luXGYyXGZzMjhcbGFuZzEw MzNcaGljaFxmMlxkYmNoXG BkXVjgL9qlHeCqMsSyNOnc CIE7iBycwsOxBPyxl5DsU3 YyMjAwMFxhbnNpXGRlZmxh yinbEXNwWKW9iyZmUYUfRV fiDSDxAXctVz6dcWGwxCaw EkZzZHWwd8pscxLQUQtlKp ArC992UCPaCCikx6wwu9Np EOOuqIMyz3J5DBATtaoaiP b5wUroD71dp0O0ZosuK2bf AGRrDHIyN0UlRA9iVATkVs y4RGO9ICY1CFJcCXAbC9Cq SR0tQJLvyOQhDYp9a0ioqV hpXZSoSPQ1k0zhSVpsljK5 LU2kce7bcZl7k1kikgIlLJ NpPGQkaIPZLRMnB5PceKfb Cu3lqMt0tLvsMyjnIBL4Wz o6VP6ljs03ewv8xHvwCUGf rzvkTkY6DWtkYUPskuenGB d9DAzsRDBddEL4PHXvvMRc K6RxVANdEL0gzyl7ZTE4VO gnCLZkUdD4GISefTFwMBEc aGsnTUdqq550HIX0PhMuEZ 4oS1Cmr7Q7gS9nwVKsFZLj sBQuYgHfQXEkmi0uvQXwMF hvy2AlT13tmST0JYgrq4vr EX1nXtK2zhTlQOeby0sziN 7hOjB3NMibDC8ljw08PCGy VMR0qr3blIRmrJcmbfZzsS NsBWcsE1UyBYMuu918HUGo W0CtESAlt6K4qqTjMbTjGI TzgJC4vjF7QIHlUVv2hULl idE8zbDjvLZuG0pmsI1hZR DmLT7lzfilq7wwRBsrLLli OQIhrST6nwZ7PXEybVEgG3 WwxK9qIOBmYYoeDJAtxnr1 MjQcZn4cqLZbxJktIUfxTt twYWdlXHBnbmNvbnRccGdu ZGVjXHBsYWluXHBsYWluXG FwXVKmOvLimCEqCHwra0Gc fxRxzPhsMZQuRHc7psKrqk topYm9sEXibZtrYIWmzMnz tC7bKsGcNrGvABsfEP0rZO NgZ4dnhUVhSFDwYFLbD2fr ZtMxqR9gmNssKHqkKrBsJf MyMFxsdHJjaFxwYXIgSSBo YXZlIHBlcnNvbmFsbHkgcm Y5xJN9TEQkTGufXSXlSFCn bJWirl5twMgaRGTsCO9fCH FncmVlIHdpdGggYWxsIHN0 YXRlbWVudHMgbWFkZSBieS ByZXNpZGVudHMsIGZlbGxv v6Rpe6WkzDF3jS2kp8hgo1 LaMPRwvJM8JF74piS5oD0j JGPpYG1gWFAgGR9buYThnQ RqTAYoj59nqYafwbCzNYQt cnQuXHBsYWluXGYxXGZzMj BcbGFuZzEwMzNcaGljaFxm TSvoIpKgDBGbDWxhG3xzSu TtT2ZgYMYdCuHhbMIkXWLf nnkgKKBiw5CyQzNmy8kyQT euw5hekSx4UFeixUNgizwu VXydcxK3CIRfLRsyDZXzWV ZzMTRcbGFuZzEwMzNcaGlj aFxmMVxkYmNoXGYxXGxvY2 fxTnTkZ6XwNTYyEVStbPVv E9dvWGO3hJ6lp4xhh5KpvU ApJoXat2vcovSlWSXsrXAw fuLxaDMuVVGtn5XfAMVpIV VnHQXKPy4XYKEakWCjQ8m0 qGUDLL4zfPEnCDYqYUJpK6 SkYjJKzdSgw5Q0PZFuvDJc KIECRBJcfLWpG5x3lKmhMD mdMck4WvWjmDelgD0hNaNz QcQtONhqUB3bJAEcT0kjjF PjFFIvQPHzJ2qxBjBrlM1i aFxmMVxjZjJcZnMyMFxsdH FfbFdkABH1vL== Clinical Information José Oshea (test code = Julio Cesar is a 38 year [id number]) old female1. GASTRIC BX EVAL H. PYLORI2. DISTAL ESOPHAGEAL BX EVAL EOE3. PROXIMAL ESOPHAGEAL BX EVAL EOE Gross Description (test d5nhmHRyREFxpEGOOAK6NM code = [id number]) EvTB4fzFfstGx5xOvtFFVl nqT3aXBwMNoud2foBEG0r9 tfwoJWQeufSKTwFY2pXBfp JNBmPS5xEqSoKEEeVsZyUV BhcGVydzEyMjQwXHBhcGVy pII3YZVuJK9igvorIYvrEC ypOQWhdwD8HRCuaVQgW7Ta UPWsBV3bdfruJQM0MBMRMx hjHf7uzNHlxAotDrRvAsGj YXJzZXQwXGZuaWwgQXJpYW m5iZ1AVgcxFCP3RFGBEbjt ParvaImpl7KvbGAbFLUdKF xcaWQgNTEwMDAgXFxkYiBP FxXfYkY3XESkISdfRfC0OY g4NKXIQBNhOoq8BUF3IHB9 YQm6YYEgWA9wWEjyiAJcXY dzFkwmBXtrG438HKxeNQWm A0PrM4AoDLzdCdUvDFhxRB KaVJEsNUrmVCDuY5RKIPVu PCx7Zif7MsMnUQx3WNwiJ3 IPMRIxNYQiDIG4LyU5IpP5 LGr8WFYTXp2iACv3NKN9Ng O1PjX8HKssKeSkFUMrFjWz SIIvCTOvHJinyZMnHO0dkZ ubEYHjGP9KVAQkGTyiJBSw IiSiJ2TWR5rWTU2oRDtgxK JjaFxmczIyXHBhciANClxw EOHtIV5BILDuSHvxBNa4hf WnUFNhEaHvDBJwP60ot2FS w0AfYS1UJIw3egZizorvaF 4qQQBygzLqb4RwKGpdwOti NLDiFhXlEXjThYIpoR6zij DZECgmQQTvM1MsixGvDZdz CTUife5ytAqyWUjhGwQdGV Kjf3g9gPH4zOEzeMV9mLNx gPchER3srTEfXGXRUS48yD DqbiEjW4IlbAAkKfTYMTNa lvYzCPleVUG4aG9zjXZwTK 5jIUVgefBci2CiFZ0lWTSx mTTiZXTkqscheNNfZHo6gN XqJMBuSeTkkIuzo1GvEPIh CZdsKF67rdRdZB4mLNpyJL 4eXCotJU1rVYRvCLOuLRVq LjYgeCAwLjIgeCAwLjEgY2 2jQfTXqOLgf1WjB4pxIR7x aXMgZmlsdGVyZWQgdGhyb3 KhdJVkDVCgy0BegOKrFDso UQ4pGVL3Dx9jiGTlHMSvwn T0z5QbKZllNRNqRv1NSXMw cFNNJBD8RS8kWKnnCNAhV6 HuN7MxllU5LTQdjwSTJlam EwkjyEacr1WrsKRzHFRrLX xcaWQgNTEwMDIgXFxkYiBP YnCnZbQ9OIGoCXqwGqV3LU f7XEEKElZbRdZtZkO8MdHq MNrgMJz9TMn9HXoDKnQqBR k9Nwg1RpO4EAK5NET8CQxi jQUhLZrjk6PsGoWuYVOgJS inhhM3YDRngnSkc7FuJMNq PRNgS7hfCsEcBKWNGqmule IwIFNQRUNJTUVOIEJcZnMy MlxwYXIgDQpccGFyZCANCl xwbGFpblxsdHJjaFxmczIy WXHyoGEXGRG1VR6kKQMSGj fahVWpPPLhsTntXNxdjQ3p MVZiTkDhWDDrU5jxPoSaSM OfIqJoRJReG3jsVRCcKV3Q S8WiZ8dmQX2hIxBrdsUqRQ SesIHsHDInkbCja6ZrCYyq biBsYWJlbGVkIHdpdGggdG ktOKNdvUjovnMndxHqTX5v DSYJNUDboU6cQYYxZfQhg1 ScuISik09asZMlEYXfJWDG XRY7IWjeEQ3GGaSawkPjO3 7uv4xroPTsf1HrhALpcUpt lTMfhWPgQUPglzzcc0DqtT KeQR7neDLgHU96CMkbruEq eAolxqQut6L8OOIbo0N1MO BmcmFnbWVudHMgKHJhbmdp bmcgZnJvbSBsZXNzIHRoYW 2iDD6fNKNzQEJrNrIwiFRf ffXtdeUahBBlfIOjqS6czo Wpd52tLTFvNCY6AQWuGZH0 PCAjYWZlkZFhkzSbY7xyJR wblUNoGgORsSYkn2PlB0jj UM5skIQzPdzhcBZtPZImlA irx5VyrTDeBGJck4GceVOa NUwrSQ4nNAL3Iz3rfMPeTA VukdF2o4JaDTgiKVKiQv9U PAJhuDAFXVM8MY4cHKekTB XbT9MfC0RymjP8GEKfwjNC GdupHlwfsFqbx9RagWJdHS NnIFxcaWQgNTEwMDIgXFxk KoTGYkZaOeT5XFGbWCxxPm H6WRd2UQRPBbYxEkOsRiF7 AxSzIzObYCe0LFm6GHbHUn ByKVs9Uyl3DFJaOUO9OKO4 HHwmcNPbTNabr6AlHlHyZH CjQLngibN3JAChglIyw7Vu OKPiQMNiX5vsKrOsQTYHSn xmczIwIFNQRUNJTUVOIENc ZnMyMlxwYXIgDQpccGFyZC ANClxwbGFpblxsdHJjaFxm vmZgNIQhfLETOVU1TB0kXV ANClxsdHJwYXJcbGluMFxy gT1hZIMwCaFdLSCuM8anQz RoCU0VI4YjP6tjQT8tYtGi cyByZWNlaXZlZCBpbiBmb3 JtYWxpbiBsYWJlbGVkIHdp dGggdGhlIHBhdGllbnQncy CiIM7mSYHOAENvvC2bLHRo BiXrr6huiKFnVDTtg5ElTT nhHExfRnzfIETejMSCD4Vz RRIyBZEkh09byDT9ocNuIl QlVASkql7oiV7cUNDfbHm8 rbTmq9r7N9NxcAUixlTdG7 TqTEUne43erZJ2tOGsyIHo FuVlA12zqsTaMNbnJS2zxQ 5tVNNwz83rDQ3dGGGtICRi MyBjbSBpbiBncmVhdGVzdC RupB7nikPan30oFFDaUJS5 KOJrMCC2TIQaJZBrvFRufw GpA6jxTUogvKBlEwFMrZUj i8UlR6clYV8ulBKeNemdiO YxRYMefKqya8NreBRmXTTi x2ArwHThVDuhIE0tSSR9Aq 9yqSEjLQQkpzS1y4PtLMmr UBCqKkkuGPQbLRapc7GoZG LmjPYBw2NjHV6QKLSuyaOC GtihWQZpIGHlhBPKf6PvHU QFGn1gvmvvKPCyXXV3i3Wg CFSXGGfWS0ROMP7LKXFwhY KJIUX3AJ7dTAidUZDqQ2Kn R3FullS3j5zvxWixg2FxoC VuDE4laKMsHS6JJRIzkkKy DQp9 Disclaimer (test code = e3kkiOHyROCsx8ocJXYsxH [id number]) FuZzEwMzNcZnRuYmpcdWMx AZdzctNrWWumr2RoD2ObAi AwMFxhbnNpXGRlZmxhbmcx UPOsEMU5yvPkRSBbXCfrBM AyMErtVg1tzWOknXkjDpZg WDEoh7fafpVMQNzqBuKyY1 95FQXqLFlmg4qvz8YnPGPf yDNgh6T0IRPQglsaeLh0aC ziP02jg2J4WwieO6wvIDBe WYXrG0KlQS3lGMVnYea3UM Z1PAI1YQUxDNJwO2QaUR9h GRDndFBuQWe8d4bznKzrRN JpSHK2y8xzRLpuajQaBX9t ng1zhPu2n3lmmjSlYNAkKP JndZPVAKHpL6VovUmrHj0s lAf3wMynJqpeQFL7Hyb3MN 1vkj60ony0mXmkFZZyzxir QaO3UBehHRGkwvhePHq9ZN riGQFczEG2RZMdqNJgM9Fm FOOfJG4xucm9TRF2UBwsBU EtDyP5SUUcxLQdRTTkaQcx NLeou306UVT0HrYbMZ6kJ7 Guo0S9kU0vtWWoYWManSNi IjIxKPDnax4mpAJaLBrmr1 VwKUN9gaA3oSUtnQDdNSOm WP93Jjhbn8QiHigix3HgD3 7uxTO1LHjca3fhMF5iDiC5 rjFaVPseo9shtW8yHyZ5AO lhUT0aED0iJQAvzB3tfuth XHBnYnJkcmhlYWRccGdicm YbGr2zrEjwKEF3FZqaU6br kO5nHqQ9TConJ9itpF1aTT x2XMbbtVY3HITmtH9aXS8w udhlo4gkZWfhNRxaEKDskq Q6vdW7JVGgfEMrP7VgwI0g DINpWF0yapmeb3hjWVG0RH hrJLUpWUR0HhMoPEXsf9Kt scb1BzRhv0XgzORcFZutS5 4si286TNYepdRnF6kapBVt kiowiJZydbnbBGljgzM1LA IbekIeg9MiTBWpEKN1YMce KUalaIOgNVCftIkyn1xqG3 RscGFyXHBsYWluXGYxXGZz MjBcbGFuZzEwMzNcaGljaF ahTKgaShRyCASjIBfgG5zr WuIwQ9OsQMOgMgQdtDJyT2 ggVGhpcyByZXBvcnQgbWF5 SHnkN5x1KSLxlpUyaQm5bn FaBjMgDTRdOYG9UXdtgBBk YTGve4FiudhyuWDlEj9gpW LqQSGunZ0iEMYvFPDpOOnu WD6kiQn8OZYMfKZozEIkMn RRSDAbMT38ynTaBLALhryd q8X4HOweTLVhs6RayRRtN0 aan3FjMGCic46iGZ3gk6N0 s3fxOHB0AZ8ue1HtLKDhbF VfnRDeKSNhj9Wqjzfkr2Wa JFYvleEcn8ZxAIAjraWcuY BbXLZjynHrwo9ghhKoKLTh RQGgH1YkbmsxaTwymqXbGU Srwi0hlcGfHFV1OMXCNPQz MQSaj5VmwW3jjTFRMSW4dJ Ouip6dtmCVhNTtSUIdwo85 SYOpSY2zN4vbWQPpLCPyrl WqfTDcr0JnYUXzdUM0wUVv DO4VAeWJx60fGTRlFRLDfn RfIESsgSkntVS4vrM4nN9i IChGREEpLlx+IFRoZSBGRE WbIK1rkmOpw9HypsTlwWtp EESggXFss5VqhREac2VkiV wsd8QlmFTgbMPbXJ8cDJFc clxwYXIgVVRNQiBMYWJvcm K1l8YeMETdLJFxZBB3tWxn wwo7PWLvgU4vAJRiT3cssc fqDXgsBNEmv2UilE6koWBX cKPrt8TeyKSfcAKQvIArTG 8bqfDwHEnRDZdRAKP7ykBc JNMuk0WmDNzwW3haT13tmB wrzRk4cDY7WED7bX6cCkn+ IFxwYXJccGFyIEFwcHJvcH EsLXPbaLrrlzGyJ0GyidMs lZ6tbKQqnoKoXP2eIG8hZ7 D2vIBcBHYdxvPmo3xyFKgg dmUgYmVlbiByZXZpZXdlZC Tya7MpUBnzKTB6JXkdvhZj bmNsdWRpbmcgSCZFLCBTcG XhvDRjSBJ8LRnqxfHruwUl WR7ymO2zwUqqcK5xsPCgwW F9lyiuGEMxTMGdcJmpEPBg AG7otCspmP3mJuDrTwBzHB jgYN7fHBSnT8cgcVKtIWRc DQZkJ0qmYtXmsO0oqUhjRI xjZjJcZnMyMFxwYXJccGFy XHBsYWluXGYxXGZzMjBcbG FuZzEwMzNcaGljaFxmMVxk GxZvBHQnNGgoV1caOhFzD2 VlICMkJtBciUEoP0ekQGqj VIQ4ULFsIY4knUIfLD65aF Rmb5fnSNlkgVrcmf5lW71r gQCxEAtanQabSTCzr54jt9 JnYLTsxkArqv4eHROfvtP2 bG5lDMKhyXkcNCQruYVzCI Iky1JzRInsrZGvkmKzXRmu DASmGSHvsUNghhE1vdHhvo EbeoPpOELncUnmILTer3Dg EGWeMRwqe6Fpko4gqGJqSI GdbiSAvNgooCKtnB1mV4Df WENjEMQdrk1xUKUxhA8hFO nxs0XzbmigTRLsEWWbPNPf caFuxq6eZUJtmIXRUQ9NQH zjkBGld7SitqAaZ7eGINW8 NUQwNjYwMjgxKSBleGNlcH MxMJBpqz78RJGbjE8drMwr MLGdsN7bmQ0vcPfbnB0wMz EuTfZcYTbzHM4sSCMpR2fp fBMvCCTjKVQqH7epWsBldJ 9jaFxmMVxjZjJcZnMyMFxw YXJ9fQ== Embedded Images (test code = [id number]) [facility] GLUCOSE (AUTOMATED)2023-04-09 13:04:56 Test Item Value Reference Range Interpretation Comments POCT GLU (test code = 1586682570) 240 mg/dL 70-110 H Lab Interpretation (test code = Abnormal 51757-6) [facility] GLUCOSE (AUTOMATED)2023-04-09 13:04:56 Test Item Value Reference Range Interpretation Comments POCT GLU (test code = 6217096591) 240 mg/dL 70-110 H Lab Interpretation (test code = Abnormal 36520-4) [facility] [id number] 00:00:00 Test Item Value Reference Range Interpretation Comments POCT PREG (test code = 1605) Negative On board controls acceptable with C Yes Line (test code = 3574) POCT PREG LOT # (test code = 3575) POCT PREG TEST DATE (test code = 3576) [facility] [id number] 00:00:00 Test Item Value Reference Range Interpretation Comments POCT PREG (test code = 1605) Negative On board controls acceptable with C Yes Line (test code = 3574) POCT PREG LOT # (test code = 3575) POCT PREG TEST DATE (test code = 3576) [facility] [id number] 05:21:47 Test Item Value Reference Interpretation Comments Range Anticardiolipin 11.9 See_Comment H [Automated Antibody IgG (test message] The code = [id number]) [facility] generated this result transmitted reference range: 0.0 - 10.0 GPL. The reference range was not used to interpret this result as normal/abnormal . Anticardiolipin 1.8 See_Comment [Automated Antibody IgM (test message] The code = 3168540955) [facility] generated this result transmitted reference range: 0.0 - 10.0 MPL. The reference range was not used to interpret this result as normal/abnormal . Anticardiolipin 1.5 See_Comment [Automated Antibody IgA (test message] The code = 3698069470) [facility] generated this result transmitted reference [...] 2210-4 Lab Interpretation Abnormal (test code = 18683-0) [facility]ICARD[facility]OL[facility] [id number] 05:21:47 Test Item Value Reference Interpretation Comments Range Anticardiolipin 11.9 See_Comment H [Automated Antibody IgG (test message] The code = 8719835299) [facility] generated this result transmitted reference range: 0.0 - 10.0 GPL. The reference range was not used to interpret this result as normal/abnormal . Anticardiolipin 1.8 See_Comment [Automated Antibody IgM (test message] The code = 6596348524) [facility] generated this result transmitted reference range: 0.0 - 10.0 MPL. The reference range was not used to interpret this result as normal/abnormal . Anticardiolipin 1.5 See_Comment [Automated Antibody IgA (test message] The code = 4511380026) [facility] generated this result transmitted reference [...] 2210-4 Lab Interpretation Abnormal (test code = 27618-9) [facility] GLYCOPROTEIN I [id number] 05:21:31 Test Item Value Reference Interpretation Comments Range Anti-B2 2.8 See_Comment [Automated Glycoprotein 1 IgG message] The (test code = system which 9065446846) generated this result transmitted reference range : 0.0 - 20.0 SGU. The reference range was not used to interpret this result as normal/abnormal . Anti-B2 0.6 See_Comment [Automated Glycoprotein 1 IgM message] The (test code = system which 7449834818) generated this result transmitted reference range : 0.0 - 20.0 SMU. The reference range was not used to interpret this result as normal/abnormal . Anti-B2 2.6 See_Comment [Automated Glycoprotein 1 IgA message] The (test code = system which 8744413495) generated this result transmitted reference range : [...] losses and/or thrombocytopenia. TEST PERFORMED AT:[facility] [id number] [place] [address] [employer] [facility] [place] [address] Lab Interpretation Normal (test code = 67376-2) [facility] GLYCOPROTEIN I [id number] 05:21:31 Test Item Value Reference Interpretation Comments Range Anti-B2 2.8 See_Comment [Automated Glycoprotein 1 IgG message] The (test code = system which 3282890194) generated this result transmitted reference range : 0.0 - 20.0 SGU. The reference range was not used to interpret this result as normal/abnormal . Anti-B2 0.6 See_Comment [Automated Glycoprotein 1 IgM message] The (test code = system which 4030555228) generated this result transmitted reference range : 0.0 - 20.0 SMU. The reference range was not used to interpret this result as normal/abnormal . Anti-B2 2.6 See_Comment [Automated Glycoprotein 1 IgA message] The (test code = system which 3668918681) generated this result transmitted reference range : [...] losses and/or thrombocytopenia. TEST PERFORMED AT:[facility]. [id number] [place] [address] [place] [address] Lab Interpretation Normal (test code = 65390-9) [facility] GLUCOSE (AUTOMATED)2022-12-11 15:26:47 Test Item Value Reference Range Interpretation Comments POCT GLU (test code = 3458685399) 91 mg/dL 70-110 Lab Interpretation (test code = Normal 74334-2) [facility] GLUCOSE (AUTOMATED)2022-12-11 15:26:47 Test Item Value Reference Range Interpretation Comments POCT GLU (test code = 0707806432) 91 mg/dL 70-110 Lab Interpretation (test code = Normal 32756-5) [facility] [id number] 14:48:00 Test Item Value Reference Range Interpretation Comments POCT PREG (test code = 1605) Negative On board controls acceptable with C Yes Line (test code = 3574) POCT PREG LOT # (test code = 3575) POCT PREG TEST DATE (test code = 3576) Lab Interpretation (test code = Normal 67109-3) [facility] [id number] 14:48:00 Test Item Value Reference Range Interpretation Comments POCT PREG (test code = 1605) Negative On board controls acceptable with C Yes Line (test code = 3574) POCT PREG LOT # (test code = 3575) POCT PREG TEST DATE (test code = 3576) Lab Interpretation (test code = Normal 79016-9) [facility] SARS-COV-2 ANTIGEN (BINAX NOW)2022-11-29 17:40:00 Test Item Value Reference Range Interpretation Comments POCT SARS-COV-2 ANTIGEN (test Not Detected Not Detected code = 09771-3) On board controls acceptable Yes with C Line (test code = 3574) [facility] SARS-COV-2 ANTIGEN (BINAX NOW)2022-11-29 17:40:00 Test Item Value Reference Range Interpretation Comments POCT SARS-COV-2 ANTIGEN (test Not Detected Not Detected code = 77660-3) On board controls acceptable Yes with C Line (test code = 3574) [facility] MOLECULAR [id number] 17:14:55 Test Item Value Reference Range Interpretation Comments POCT Molecular Strep (test code = Negative Negative 46545-3) Lab Interpretation (test code = Normal 23860-3) [facility] MOLECULAR [id number] 17:14:55 Test Item Value Reference Range Interpretation Comments POCT Molecular Strep (test code = Negative Negative 72588-0) Lab Interpretation (test code = Normal 19322-1) [facility] GLUCOSE (AUTOMATED)2022-09-15 16:40:41 Test Item Value Reference Range Interpretation Comments POCT GLU (test code = 6803473752) 133 mg/dL 70-110 H Lab Interpretation (test code = Abnormal 78337-3) [facility] GLUCOSE (AUTOMATED)2022-09-15 16:40:41 Test Item Value Reference Range Interpretation Comments POCT GLU (test code = 8684704153) 133 mg/dL 70-110 H Lab Interpretation (test code = Abnormal 34084-0) [facility] [id number] 16:35:00 Test Item Value Reference Range Interpretation Comments POCT PREG (test code = 1605) Negative On board controls acceptable with C Yes Line (test code = 3574) POCT PREG LOT # (test code = 3575) POCT PREG TEST DATE (test code = 3576) Lab Interpretation (test code = Normal 11785-5) [facility]PO[facility] [id number] 16:35:00 Test Item Value Reference Range Interpretation Comments POCT PREG (test code = 1605) Negative On board controls acceptable with C Yes Line (test code = 3574) POCT PREG LOT # (test code = 3575) POCT PREG TEST DATE (test code = 3576) Lab Interpretation (test code = Normal 33037-1) [facility]DIAG[facility] TE[facility]; SPECIAL COAGULATION [id number] 22:21:22Related Clinical History The patient is 37 years old female who has been followed by pain managementfor radicular pain. She recently had sacroiliac injections which did not help with her symptoms. Medications: Not currently taking any antiplatelet or anticoagulant medications Family History: No knownfamily history of coagulation disorder 09/05/2022 4:21 PM [facility] SERVICESPertinent Lab Results ? Ref. Range [...] IgA? 0.0 - 20.0 JOSE? 5.1? Anticardiolipin? IgG?<10.0 GPL? 20.9? IgM? <10.0 MPL? 1.5? IgA? <15.0 APL? 0.1? 09/05/2022 4:21 PM [facility]ORATORY SERVICESCoag DMT interpretation This patient has [...] or complications in women. 09/05/2022 4:21 PM [facility] LABORATORY SERVICESRecommendations If clinically indicated, repeat the antiphospholipid antibody panel in 12 weeks, to evaluate the patient for antiphospholipid syndrome. ? 09/05/2022 4:21 PM [facility]OR[facility] SERVICESB[facility] ClubMisc. Sendout- [id number] Lupus Anticoagulant Reflexive [id number] 14:40:11 Test Item Value Reference Range Interpretation Comments Miscellaneous Test (test See scanned report code = 7796777112) Performing Lab (test code ARUP = 2540871690) [facility] ClubANTICARDIOLIPIN [id number] 03:44:30 Test Item Value Reference Interpretation Comments Range Anticardiolipin 20.9 See_Comment H [Automated Antibody IgG (test message] The code = 6095721861) [facility] generated this result transmitted reference range: 0.0 - 10.0 GPL. The reference range was not used to interpret this result as normal/abnormal . Anticardiolipin 1.5 See_Comment [Automated Antibody IgM (test message] The code = 6248268994) [facility] generated this result transmitted reference range: 0.0 - 10.0 MPL. The reference range was not used to interpret this result as normal/abnormal . Anticardiolipin 0.1 See_Comment [Automated Antibody IgA (test message] The code = 7219712418) [facility] generated this result transmitted reference [...] 2210-4 Lab Interpretation Abnormal (test code = 67071-2) [facility]IC[facility] [id number] 03:44:30 Test Item Value Reference Interpretation Comments Range Anticardiolipin See_Comment H [Automated Antibody IgG (test message] The code = 0515374424) [facility] generated this result transmitted reference range: 0.0 - 10.0 GPL. The reference range was not used to interpret this result as normal/abnormal . Anticardiolipin See_Comment [Automated Antibody IgM (test message] The code = 7710331806) [facility] generated this result transmitted reference range: 0.0 - 10.0 MPL. The reference range was not used to interpret this result as normal/abnormal . Anticardiolipin See_Comment [Automated Antibody IgA (test message] The code = 3125907538) [facility] generated this result transmitted reference [...] 2210-4 Lab Interpretation Abnormal (test code = 02321-1) [facility] GLYCOPROTEIN I [id number] 03:40:36 Test Item Value Reference Interpretation Comments Range Anti-B2 3.0 See_Comment [Automated Glycoprotein 1 IgG message] The (test code = system which 2683293525) generated this result transmitted reference range : 0.0 - 20.0 SGU. The reference range was not used to interpret this result as normal/abnormal . Anti-B2 1.5 See_Comment [Automated Glycoprotein 1 IgM message] The (test code = system which 4489122675) generated this result transmitted reference range : 0.0 - 20.0 SMU. The reference range was not used to interpret this result as normal/abnormal . Anti-B2 5.1 See_Comment [Automated Glycoprotein 1 IgA message] The (test code = system which 5413916059) generated this result transmitted reference range : [...] recurrent losses and/or thrombocytopenia. TEST PERFORMED AT:Antiphospholipid [facility]. [address] [place] [address].[place] [address] Lab Interpretation Normal (test code = 34354-0) [facility]OTE[facility] I [id number] 03:40:36 Test Item Value Reference Interpretation Comments Range Anti-B2 See_Comment [Automated Glycoprotein 1 IgG message] The (test code = system which 1086749619) generated this result transmitted reference range : 0.0 - 20.0 SGU. The reference range was not used to interpret this result as normal/abnormal . Anti-B2 See_Comment [Automated Glycoprotein 1 IgM message] The (test code = system which 4993849110) generated this result transmitted reference range : 0.0 - 20.0 SMU. The reference range was not used to interpret this result as normal/abnormal . Anti-B2 See_Comment [Automated Glycoprotein 1 IgA message] The (test code = system which 5859965267) generated this result transmitted reference range : [...] recurrent losses and/or thrombocytopenia. TEST PERFORMED AT:Antiphospholipid [facility]. [address] [place] [address].[place] [address] Lab Interpretation Normal (test code = 89212-3) [facility] [id number] 17:19:00 Test Item Value Reference Range Interpretation Comments POCT PREG (test code = 1605) Negative On board controls acceptable with C Yes Line (test code = 3574) POCT PREG LOT # (test code = 3575) POCT PREG TEST DATE (test code = 3576) [facility] [id number] 17:19:00 Test Item Value Reference Range Interpretation Comments POCT PREG (test code = 1605) Negative On board controls acceptable with C Yes Line (test code = 3574) POCT PREG LOT # (test code = 3575) POCT PREG TEST DATE (test code = 3576) [facility] [id number] 20:18:00 Test Item Value Reference Range Interpretation Comments POCT PREG (test code = 1605) Negative On board controls acceptable with C Yes Line (test code = 3574) POCT PREG LOT # (test code = 3575) POCT PREG TEST DATE (test code = 3576) Lab Interpretation (test code = Normal 69375-8) [facility] [id number] 20:18:00 Test Item Value Reference Range Interpretation Comments POCT PREG (test code = 1605) Negative On board controls acceptable with C Yes Line (test code = 3574) POCT PREG LOT # (test code = 3575) POCT PREG TEST DATE (test code = 3576) Lab Interpretation (test code = Normal 20424-0) [facility] [id number] 17:01:00 Test Item Value Reference Range Interpretation Comments POCT PREG (test code = 1605) Negative On board controls acceptable with C Yes Line (test code = 3574) POCT PREG LOT # (test code = 3575) POCT PREG TEST DATE (test code = 3576) [facility] [id number] 17:01:00 Test Item Value Reference Range Interpretation Comments POCT PREG (test code = 1605) Negative On board controls acceptable with C Yes Line (test code = 3574) POCT PREG LOT # (test code = 3575) POCT PREG TEST DATE (test code = 3576) [facility] History and Physical Notes Date/Time Note Provider Source 2023-04-09 08:44:32 7487-25-93C99:44:32Formatting of this note [facility] is different from the original.Endoscopy H & PAge: 38 year old Sex: female ASA Class: IIIIndication: chronic nausea, heartburn, dysphagia, Dilciasella Dorie Luke is a 38 year old female with PMH as below who was seen in GI clinic by Dr. Morales for the above complaints. She has had chronic nausea as well as more recently uncontrolled heartburn despite medication. She also has intermittent dysphagia to solids and pills. She is scheduled for EGD to further evaluate. No blood thinner use. No family history of esophageal or gastric cancer.Histories:Past Medical History: Diagnosis Date Allergic rhinitis 2003 Latex Antiphospholipid antibody positive 01/01/2023 Anxiety Arthritis N/A COPD (chronic obstructive pulmonary disease) N/A Chronic Depression 2013 It just hits me in spurts. DM (diabetes mellitus) Fatty liver GENNY (generalized anxiety disorder) 04/05/2023 Gastroesophageal reflux disease, unspecified whether esophagitis present 01/02/2023 HLD (hyperlipidemia) Irregular menstrual cycle 07/17/2022 Menstrual disorder AKHIL (obstructive sleep apnea) 10/22/2022 Pap smear abnormality of cervix as a teenager PID (pelvic inflammatory disease) Pre-eclampsia 04/23/2017 Family History Adopted: Yes Problem Relation Age of Onset Diabetes Paternal Grandfather Allergies Brother Just has bad allergies/ seasonal Arthritis Father Not sure when it started. Cataracts NoFHx Glaucoma NoFHx Macular degeneration NoFHx Retinal detachment NoFHx Past Surgical History: Procedure Laterality Date COLONOSCOPY N/A 05/28/2020 Surgeon: Norbert Diaz MD; Location: [place] [facility] COLONOSCOPY 05/28/2020 COLPOSCOPY HEMORRHOIDECTOMY N/A 11/14/2021 Surgeon: Azalia Michel MD; Location: [facility] JOINT INJECTION Right 10/18/2020 Surgeon: Curtis Morley MD; Location: [place] [facility] No current facility-administered medications for this encounter. 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: [employer] Tobacco Use Smoking status: Former Packs/day: 0.33 Years: 10.00 Additional pack years: 0.00 Total pack years: 3.30 Types: Cigarettes Start date: 12/31/2016 Quit date: 07/20/2020 Years since quittin.7 Smokeless tobacco: Never Tobacco comments: vapes Vaping Use Vaping Use: Some days Substance and Sexual Activity Alcohol use: No Drug use: No Sexual activity: Yes Partners: Male control/protection: Inserts Social History Narrative Plans to go back to school 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 Social Determinants of Health Financial Resource Strain: High Risk (03/06/2023) Overall Financial Resource Strain (CARDIA) Difficulty of Paying Living Expenses: Hard Food Insecurity: No Food Insecurity (03/06/2023) Hunger Vital Sign Worried About Running Out of Food in the Last Year: Never true Ran Out of Food in the Last Year: Never true Transportation Needs: No Transportation Needs (03/06/2023) PRAPARE - Transportation Lack of Transportation (Medical): No Lack of Transportation (Non-Medical): No Physical Activity: Inactive (03/06/2023) Exercise Vital Sign Days of Exercise per Week: 0 days Minutes of Exercise per Session: 0 min Stress: Stress Concern Present (03/06/2023) [place] [employer] - Occupational Stress Questionnaire Feeling of Stress : To some extent Social Connections: Moderately Isolated (03/06/2023) Social Connection and Isolation Panel [NHANES] Frequency of Communication with Friends and Family: Twice a week Frequency of Social Gatherings with Friends and Family: Once a week Attends Scientologist Services: Never Active Member of Clubs or Organizations: No Attends Club or Organization Meetings: Never Marital Status: Living with partner Housing Stability: Unknown (03/06/2023) Housing Stability Vital Sign Unable to Pay for Housing in the Last Year: No Unstable Housing in the Last Year: No Physical Exam:Mental Status: alert, oriented t6Uzktdha: bowel sounds present Spleen Tip: non-palpableHepatomegaly: noMass: not presentTenderness: noImpression and Plan: José Luke is a 38 year old female with PMH as above who presents for chronic nausea, heartburn, and dysphagia. Will proceed with EGD. Benefits, risks, alternatives, and likelihood of achieving patient's goals of care discussed. Risks discussed including but not limited to aspiration, infection, bleeding, injury to the GI tract or surrounding vessels/structures, perforation, missed polyps/lesions, failure to obtain a diagnosis, failure to complete the procedure, cardiovascular complications such as NM, stroke, arrhythmia, and . Informed consent obtained/verified. Education provided to the patient about the procedure. Baldemar Garrett Professor of Internal MedicineDivision of Gastroenterology and Hepatology 33248-2Leigldx and physical jricHB4720-30-70Y53:46:40History and physical noteTXT1.2.840.433501.1.13.104.2.7.2.87085 9|[id number] for patient alyu95182-2Fmxwxzv and physical noteLN[address] [id number] RUSTKREISFQXTAAEQTRZ4150-99-22Z88:46:401.2.840 .449506.1.72.3.15|1.2.840.107353.1.13.104. 2.7.2.727879_[id number] Notes Date/Time Note Provider Source 2023-04-13 [id number]:19:12Formatting of NACR-NURSE [facility] - 13:19:12 this note is different from the MANAGER [employer]MENT,[facility] original.Addendum created 04/13/23 REGISTERED NU RSE 1319 by Jayjay Contreras CRNA MANAGER [employer]QUIPMENT Intraprocedure Meds edited 58079-7Fijghukr RonwygmxPX3667-25-86O97:19:12Addend um DocumentTXT1.2.840.137101.1.13.104. 2.7.2.808255|[id number] for patient enwm82996-7YkdwWVLOUI-EITOB MANAGER HEAV[employer]QUIPMENT,CERTIFIED REGISTERED NURSE ANESTHETISTNACR-NURSE MANAGER HEAVY EQUIPMENT,CERTIFIED REGISTERED NURSE ANESTHETIST[id number] 6RYLQLXBQADARRPCVRRBKCN8450-67-63G9 3:19:121.2.840.561819.1.72.3.15|1.2 .840.806308.1.13.104.2.7.2.727879_1 [id number] 2023-04-09 7282-32-44J43:44:28Formatting of TIFFANIE [facility] - 09:44:28 this note is different from the ANESTHESIOLOGIST Health original.Patient: José Luke Procedure Summary Date: 04/09/23 Room / Location: GI PROCEDURE 4 [facility] Anesthesia Start: 853 Anesthesia Stop: 915 Procedure: ESOPHAGOGASTRODUODENOSCOPY (Mouth) Diagnosis: Gastroesophageal reflux disease, unspecified whether esophagitis present Dysphagia, pharyngoesophageal phase Nausea (Gastroesophageal reflux disease, unspecified whether esophagitis present [K21.9]Dysphagia, pharyngoesophageal phase [R13.14]Nausea [R11.0]) Surgeons: Norbert Diaz MD Responsible Provider: Tacos Roman MD Anesthesia Type: General, TIVA ASA Status: 3 Anesthesia Type: General, TIVALast vitalsBP 117/82 (04/09/23939) Temp 36.2 ?C (97.1 ?F) (04/09/23923) Pulse 74 (04/09/23939) Resp 13 (04/09/23939) SpO2 97 % (04/09/23939) There were no known notable events for this encounter.Anesthesia Post EvaluationPatient location during evaluation: PACUPatient participation: complete - patient participatedLevel of consciousness: awake and alertPain score: 0Pain management: satisfactory to patientAirway patency: patentCardiovascular status: acceptable and blood pressure returned to baselineRespiratory status: acceptableHydration status: acceptable 31528-7Cszbuuiewkcuit Postoperative evaluation and management onygYU2682-59-27E86:44:37Anesthesio logy Postoperative evaluation and management noteTXT1.2.840.892825.1.13.104.2.7. 2.871559|[id number] for patient qawc30814-9Usogogay operation noteLNAN-ANESTHESIOLOGY ANESTHESIOLOGISTAN-ANESTHESIOLOGY ANESTHESIOLOGISTUTACOMA[facility] - [address] Zk[id number] 1ZSEEKWPOQSROCQKPPHXLQI2255-10-91M4 9:44:371.2.840.638194.1.72.3.15|1.2 .840.334922.1.13.104.2.7.2.727879_1 [id number] 2023-04-09 1745-71-96G88:59:10Formatting of Irene mantilla [facility] - 08:59:10 this note is different from the Health original.Images from the original note were not included.Requested Renewals Name from pharmacy: Promethazine HCl 12.5 MG Oral Tablet Will file in chart as: PROMETHAZINE 12.5 mg tablet Sig: TAKE 2 TABLETS BY MOUTH EVERY 6 HOURS NEEDED FOR NAUSEA AND VOMITING Disp: 30 tablet Refills: 0 Start: 04/07/2023 Class: eRX Non-formulary For: Chronic nausea Last ordered: 1 month ago (03/06/2023) by Taylor Verdin MD Last refill: 03/06/2023 Rx #: [id number] Anti-nausea (Other) Failed 04/09/2023 08:16 AM Protocol Details This refill cannot be delegated Manual Review: [facility] only allowed to refill requests Valid encounter within last 12 months To be filled at: [address] Recent VisitsDate Type Provider Dept 03/06/23 Office Visit Taylor Verdin MD [facility] 01/19/23 Office Visit Taylor Verdin MD [facility] 11/29/22 Office Visit Taylor Verdin MD [facility] 10/18/22 Office Visit Holly Fregoso PA [facility] 09/21/22 Office Visit Holly Fregoso PA [facility] 01/16/22 Office Visit Radha Trinidad PA [facility] Showing recent visits within past 540 days with a meds authorizing provider and meeting all other requirementsFuture AppointmentsDate Type Provider Dept 06/06/23 Appointment Taylor Verdin MD [facility] Showing future appointments within next 150 days with a meds authorizing provider and meeting all other requirements 64471-7Pydeszcpt encounter PxiyAJ2859-89-23U66:59:26Telephone encounter NoteTXT1.2.840.501574.1.13.104.2.7. 2.613483|[id number] for patient [id number] M Fisher [id number] 7ASIUBFHHRBYWPKEVNPCQTC0886-25-43U0 8:59:261.2.840.405358.1.72.3.15|1.2 .840.386672.1.13.104.2.7.2.727879_1 [id number] 2023-04-06 6266-35-83V21:49:23Formatting of Emanuel meadows RN [facility] - 10:49:23 this note might be different from Health the original.Attempted to call patient for appointment reminder/preoperative call. Voicemail left with phone number for patient to call back [phone] NlhcMR8902-23-94J34:49:32Nurse NoteTXT1.2.840.424347.1.13.104.2.7. 2.405227|[id number] for patient [id number] Sheridan RN[address] Jy[id number] 7MITMFELBXTACFUNGNUWPCD9567-97-72H4 0:49:321.2.840.720700.1.72.3.15|1.2 .840.071012.1.13.104.2.7.2.727879_1 [id number] 2023-04-05 2119-47-96L60:20:09Formatting of [facility] - 16:20:09 this note might be different from Health the original.Placed Psychiatry referral per pt request 58897-9Ollngttuq encounter TxilBM9566-65-04E03:24:43Telephone encounter NoteTXT1.2.840.135881.1.13.104.2.7. 2.931423|[id number] for patient awic16178-3MdepGJKEXKKGQI[address] Jw[id number] 6IUPSAWTGDZWZWIRHVVHXPA4274-72-66L3 6:24:431.2.840.104862.1.72.3.15|1.2 .840.050084.1.13.104.2.7.2.727879_1 [id number] 2023-04-03 4543-73-16M75:34:22Formatting of [facility] 10:34:22 this note is different from the Health original.Name/ MRN / Age / Gender:José Luke, [id number] year old female BMI:Estimated body mass index is 35.41 kg/m? as calculated from the following: Height as of 03/29/23: 1.626 m (5' 4"). Weight as of 03/29/23: 93.6 kg (206 lb 4.8 oz). Allergies:Buspirone and Latex Last Vitals:BP Readings from Last 1 Encounters: 03/29/23 115/78 Pulse Readings from Last 1 Encounters: 03/29/23 85 SpO2 Readings from Last 1 Encounters: 03/29/23 99% Date of Surgery: 04/09/2023Surgeon: Norbert Diaz, MDProcedure: ESOPHAGOGASTRODUODENOSCOPY (Mouth)OR [facility] OR LOCATIONAnesthesia Preop Eval (physical exam)Copied forward and updated from: 11/14/2021 Anesthesia Preop: Chart Review, Phone Preop and Btln-hl-VamzSKEY questionnaire answers incorporatedAPAC Communication: Marcianoempjane, jardiance.Spoke with pt. Her last dose of ozempic was this morning, 04/03/2023. And she understands to hold her jardiance for 3 days prior to the procedure. Yvonne Mehta RN 04/03/2023 11:00 AMNPO Status VerifiedAnesthesia HistoryAnesthesia History NegativeAnesthesia History Negative per Chart Review(-) Hx of anesthetic complications(-) Hx of PONV(-) Hx of malignant hyperthermia(-) Pt reports no hx of difficult airwayPrevious Anesthetics/AirwaysAdditional Comments: 11/14/2021 easy mask, ETT 7.0 at 22 cm, cuffed, DL,Mac 3, l6w-AQMG 1 approach 07/29/2021: MOD sedation for injections10/18/2020: MAC Patient reports anxiety associated with chest tightness, advised patient that she should go to ED for chest tightness. She did not want to go to ED and wanted to rest in PACU because this occurs with her anxiety and has had a recent cardiac workup. After resting for about 30 minutes patient reports resolution of the anxiety and chest tightness. Patient again advised upon discharge that if she experiences chest pain, pressure or tightness, she should go to the nearest ED05/28/2020: TIVA for GICardiovascularComments: 11/26/2020: Cardiology OV for atypical chest pain, underwent stress echocardiography which did not show evidence of myocardial ischemia, no F/U cardiac workup needed03/29/2021 EKG Suspect arm lead reversal, interpretation assumes no reversalSinus tachycardia, HR 108Right axis deviationNonspecific T wave abnormalityAbnormal ECG09/17/2020 ESEBaseline EchoNormal left ventricular systolic and diastolic function.The left ventricular diastolic function appears normal.Normal left ventricle structure and size.Ejection Fraction = 60-65%.There is normal left ventricular wall thickness.The left atrial size is normal.Right atrial size is normal.Grossly normal valves.Estimated RA pressure is 0-5 mmHgInterpretation SummaryThe study was technically adequate. Normal LV systolic function at baseline. Normal resting wall motion and no stress-induced wall motion abnormality. Adequate inotropic response. Adequate chronotropic response. This was a negative stress echocardiogram for inducible ischemic wall motion abnormalityMETS: 7-9METS Comments: Squatting, lifting, walking, no CP or SOB(-) Chest pain with 1-2 flights of stairs(-) Patient reports no hx of cardiac problems(-) Hypertension(+) Dyslipidemia ( statin )(+) Hx of cardiac stress test(-) Hx of cardiac cath(-) Angina/Chest Pain Within Last Year(-) Patient does not report prior NM(-) CAD(-) Valvular problems/murmurs(-) Dysrhythmias(-) Pt reports prior cardiac surgery(-) No cardiovascular devices present(-) CHF PulmonaryComments: Chronic cough since Covid07/20/2021: DX bronchitis/sinusitis at . [place] steroids and abx108/25/2020 10:12 new onset BSISENT-UhK-8 NAAT: Positive (A)03/26/2021 16:44 SARS-CoV-2 NAAT: Positive (A) +Covid PNA, not hospitalized, [place] steroids, abx, and inhaler(+) Patient reports snoring or stopping breathing during sleep (+) Sleep apnea, CPAP compliant(-) Home O2(-) COPD(-) Asthma(+) Tobacco useTobacco Quit Date: 12/31/2016(+) Vaping use(+) Allergic rhinitis(+) Chronic sinusitis(-) COVID-19 within the past 6 weeks(-) Influenza within the past 6 weeks(-) Pneumonia within the last 6 weeks(-) Recent bronchitis or URI Neuro/MusculoskeletalComments: (+) Sciatica (+) vertigo(+) carpal tunnel syndromeH/O multiple SI joint injections(-) CVA(+) Headaches(-) Seizures(+) Anxiety(-) Neuromuscular Disease(+) Chronic pain: ( back pain)(+) Obesity ( bmi 34.41) GI/HepaticComments: CC: ?Gastroesophageal reflux disease? ?Dysphagia, pharyngoesophageal phase ? ?Nausea H/O: nausea, prn promethazine(-) GERD(-) Liver disease HematologyComments: 01/09/23 10:40HGB: 13.5HCT: 40.9PLT x10^3: 235(+) Anemia (History of anemia)(-) PE/DVT(-) Prior blood transfusion(+) On anti-coagulant therapy RenalNegative Renal ROSRenal ROS Negative per Chart ReviewComments: 01/09/23 10:40NA: 139K: 5.0CL: 102CO2 TOTAL: 26AGAP: 11BUN: 21GLUCOSE: 151 (H)CREATININE: 0.50eGFR: 140.4(-) Renal disease(-) Dialysis SkinNegative Skin ROSSkin ROS Negative per Chart Review Endo/Other (+) Diabetes Mellitus, Type 2, Rx Insulin, diet controlled and on oral medsHemoglobin A1C: 8.4 on 08/03/2022verage Blood Glucose Range: 126 average. 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 Hold on DOS. Phentermine: Alert [facility] anesthesiologistSGLT2 Inhibitors: "gliflozins" to be held for 3 days prior to elective surgeries MAC Cases: Continue taking ANTONIO inhibitors and ARBs ASA ClassificationASA: 3 Current Medications: No current facility-administered medications for this encounter. Current Outpatient Medications Medication Sig Dispense Refill NOVOLIN N NPH U-100 INSULIN 100 unit/mL injection INJECT 10 UNITS UNDER THE SKIN IN THE MORNING. INJECT ONLY IF FASTING BLOOD SUGAR GREATER THAN 150 10 mL 0 JARDIANCE 25 mg Tab TAKE 1 TABLET BY MOUTH ONCE DAILY IN THE MORNING 90 tablet 0 metformin ER 500 mg 24 hr tablet TAKE 2 TABLETS BY MOUTH IN THE MORNING AND TAKE 3 TABLETS IN THE EVENING( NEEDS APPOINTMENT) 150 tablet 0 celecoxib 100 mg capsule Take 1 capsule by mouth in the morning and 1 capsule in the evening. Take with meals. 60 capsule 5 gabapentin 600 mg tablet Take 1 tablet by mouth in the morning and 1 tablet in the evening. 90 tablet 2 gabapentin 800 mg tablet Take 1 tablet by mouth at bedtime. 90 tablet 3 Miscellaneous Medical Supply Kit Use as directed 1 Kit 0 tiZANidine 4 mg tablet Take 1 tablet morning and afternoon, 2 tablets at bedtime 120 table t 3 NuvaRing 0.12-0.015 mg/24 hr vaginal insert Insert 1 Each into vagina once every month. Insert vaginally and leave in place for 3 consecutive weeks, then remove for 1 week. 3 Each 1 atorvastatin 20 mg tablet Take 1 tablet by mouth at bedtime. 90 tablet 1 escitalopram oxalate (LEXAPRO) 20 mg tablet Take 1 tablet by mouth in the morning. 90 tablet 1 meclizine 25 mg tablet TAKE 1 TABLET BY MOUTH EVERY 8 HOURS NEEDED 20 tablet 2 proMETHazine 12.5 mg tablet TAKE 2 TABLETS BY MOUTH EVERY 6 HOURS NEEDED FOR NAUSEA AND VOMITING 30 tablet 0 semaglutide (OZEMPIC) 2 mg/dose (8 mg/3 mL) PnIj INJECT 2 MG UNDER THE SKIN WEEKLY 3 mL 2 glyBURIDE 5 mg tablet TAKE 1 TABLET BY MOUTH TWICE DAILY (NEEDS FOLLOW UP VISIT FOR FURTHER REFILLS 180 tablet 0 lidocaine HCL (ASPERCREME, LIDOCAINE HCL,) 4 % Crea Apply 1 Each to area(s) in the morning and 1 Each in the evening. 118 m L 2 pantoprazole 40 mg EC tablet Take 1 tablet by mouth in the morning. 90 tablet 1 Ylsjrmcnut-Pcdvhorqsufwc-Okjr 50-300-40 mg per capsule TAKE 1 CAPSULE BY MOUTH EVERY 6 HOURS NEEDED fluticasone propionate 50 mcg/actuation nasal spray Use 1 [place] in each nostril in the morning. 16 g 1 ondansetron 4 mg tablet TAKE 1 TABLET BY MOUTH EVERY 12 HOURS NEEDED albuterol 90 mcg/actuation inhaler Inhale 2 Puffs every 6 (six) hours as needed for Wheezing or Shortness of Breath. 8.5 g 0 metFORMIN 1,000 mg tablet Take 1 tablet by mouth in the morning and 1 tablet in the evening. Take with meals. 180 tablet 1 pioglitazone 30 mg tablet Take 1 tablet by mouth in the morning. 30 tablet 2 Previous Surgeries: Past Surgical History: Procedure Laterality Date COLONOSCOPY N/A 05/28/2020 Surgeon: Norbert Diaz MD; Location: [place] [facility] COLONOSCOPY 05/28/2020 COLPOSCOPY HEMORRHOIDECTOMY N/A 11/14/2021 Surgeon: Azalia Michel MD; Location: [facility] JOINT INJECTION Right 10/18/2020 Surgeon: Curtis Morlye MD; Location: [place] OR Location Anesthesia Physical ExamGeneralno apparent distress and alert and oriented x 3 Neuro/Psychneurological Nonfocal Dentalno notable dental hx Abdominal GI exam normal (+) abdomen soft and benign Airway Mallampati score:IIITM distance:> 5 cmNeck ROM: fullMouth opening:normal Extremity Normal extremity Pulmonarypulmonary exam normal and bilateral clear to auscultation Other Cardiovascularcardiovascular exam normalRhythm:RegularRate: Normal Anesthesia Plan ASA Status: 3 Plan discussed during pre-op evaluation: General and TIVAAnesthetic plan on DOS: General and TIVAPlan to include: IV induction and face maskAnesthesia plan discussed with: patient or representativePost-Operative Analgesia: routine analgesia & antiemeticsRecovery Plan: PACUAdditional comments: 58642-3Yvecdotqwviiag Preoperative evaluation and management vtjlNU9194-33-39G79:43:50Anesthesio logy Preoperative evaluation and management noteTXT1.2.840.717301.1.13.104.2.7. 2.274482|[id number] for patient jowd04812-1Xczpjllh operation noteLNUT[address]Ag[id number] 8MYHZHMEPRDEJQYAAVDVIXZ1150-41-77O5 7:43:501.2.840.778470.1.72.3.15|1.2 .840.716237.1.13.104.2.7.2.727879_1 [id number] 2023-04-02 5328-05-13U85:01:53Formatting of Yasmeen Finch MA [facility] - 15:01:53 this note is different from the [facility].Requested Prescriptions Pending Prescriptions Disp Refills semaglutide (OZEMPIC) 2 mg/dose (8 mg/3 mL) PnIj [Pharmacy Med Name: OZEMPIC 2mg/dose Pen Injector] 3 mL 2 Sig: INJECT TWO (2) MG UNDER THE SKIN ONCE WEEKLY. 22076-9Pjywysezk encounter XdirTS7324-09-29X76:02:31Telephone encounter NoteTXT1.2.840.779518.1.13.104.2.7. 2.185922|[id number] for patient efkb62926-3ShpaHM215944332Ovmttufo Avalos [id number] 7XGTIYJFSPWUKODIKYZAGEI5491-94-56G3 5:02:311.2.840.140430.1.72.3.15|1.2 .840.634591.1.13.104.2.7.2.727879_1 [id number] 2023-03-30 1557-34-27L66:41:53Formatting of Chari srivastava [facility] - 16:41:53 this note might be different from [facility] the original.LOVN sent to [facility] via right fax 96313-8Pmbaeiwnf encounter KhlpPM7809-44-94H43:42:20Telephone encounter NoteTXT1.2.840.318014.1.13.104.2.7. 2.143954|[id number] for patient [id number] L Barrientos [id number] 1YLKNCDSZGIXKFLENVLXMCJ8851-65-82Z8 6:42:201.2.840.618905.1.72.3.15|1.2 .840.355364.1.13.104.2.7.2.727879_1 [id number] 2023-03-19 3941-52-87U54:58:36Formatting of Bia roger [facility] - 14:58:36 this note might be different from Health the original.Prescription & Letter of Medical Necessity has been completed & signed by DAISY Vila as well as scanned to patient's chart. Clinical notes, patient demographics, & LMN have all been faxed to Rosanna .Bia Zelaya MA 03/19/2023 2:58 PM 85074-1Duawcoieq encounter CcqaTA7042-48-20Y69:58:47Telephone encounter NoteTXT1.2.840.013899.1.13.104.2.7. 2.511644|[id number] for patient lwqj45192-0TilkYM159168568Yidpflx Martinez [id number] 7XSHLIXGKTNDYYGRJWLNDGZ6198-30-00G5 4:58:471.2.840.109892.1.72.3.15|1.2 .840.672512.1.13.104.2.7.2.727879_1 [id number] 2023-03-19 5695-84-80G12:52:39Formatting of [facility] - 14:52:39 this note might be different from Health the original.Fax received from [facility] stating they did not receive the LMN sent by DAISY Vila on 03/13/2023. LMN filled out and placed in DAISY Vila's folder for review and signature. Bia Zelaya MA 03/19/2023 2:54 PM 47044-5Wwyknwixf encounter FatiLV3230-93-94B79:58:47Telephone encounter NoteTXT1.2.840.852804.1.13.104.2.7. 2.285256|[id number] for patient yxbs37722-0NwxhENXFLRPCFL[id number] 0LAQTUOTKJIWLIGNFQGESJY3529-72-20S3 4:58:471.2.840.350310.1.72.3.15|1.2 .840.087891.1.13.104.2.7.2.727879_1 [id number] 2023-03-14 4525-28-31G47:24:53Formatting of Bia roger MA [facility] - 08:24:53 this note might be different from Health the original.Prior Authorization for Celecoxib 100MG capsules has been APPROVED. Dates: 03/14/2023 - 03/13/2024A#: [id number] Zelaya MA 03/14/2023 8:24 AM 96058-0Jwcoraswm encounter DyqeTO1989-28-14H00:25:53Telephone encounter NoteTXT1.2.840.046950.1.13.104.2.7. 2.445526|[id number] for patient mzzf45575-8UsnnZI787728437Xmvdceb Martinez [address] Ly[id number] 7FCTTRLBGKRUBXINSGYYZGV7014-65-59N2 8:25:531.2.840.308078.1.72.3.15|1.2 .840.563226.1.13.104.2.7.2.727879_1 [id number] 2023-03-14 1519-26-59A56:07:24Formatting of Bia roger MA [facility] - 08:07:24 this note might be different from Health the original.Images from the original note were not included.Prior Authorization required for Celecoxib 100MG capsules.Covermymeds.comKEY: [id number] Pharmacy [address] [place] [address] WESTPhone: KpadetzBia Zelaya MA 03/14/2023 8:12 AM 56771-7Wodurcajb encounter JsvnJD3121-12-54A45:12:56Telephone encounter NoteTXT1.2.840.660438.1.13.104.2.7. 2.929153|[id number] for patient qixy64455-5LgghYT389402247Dmvitcu Martinez [address]ZITO[address] StreetJfdo[id number] 5JLEDWOTTAXWWJOPFGZNLQS3381-17-34B9 8:12:561.2.840.255217.1.72.3.15|1.2 .840.023782.1.13.104.2.7.2.727879_1 [id number] 2023-03-13 0831-27-62M39:30:00 Addended by: [facility] - 14:30:00 BETH PHAM RN on: 03/15/2023 [facility] 05:00 PM Modules accepted: Orders 31721-3Ayoxnpvy RzltirryNL0611-90-60H74:00:15Addend um DocumentTXT1.2.840.694050.1.13.104. 2.7.2.654691|[id number] for patient mhji98048-4DqmoNDFUUCKVFD[id number] 8BBDGWDWPOYUKALSNINXFHC2106-31-72X3 7:00:151.2.840.415312.1.72.3.15|1.2 .840.613659.1.13.104.2.7.2.727879_1 [id number] 2023-03-08 0116-58-22P96:12:58Formatting of Nidia Barnhart MA [facility] - 16:12:58 this note is different from the Health original.Recent VisitsDate Type Provider Dept 03/06/23 Office Visit Taylor Verdin MD [facility] 01/19/23 Office Visit Taylor Verdin MD [facility] 11/29/22 Office Visit Taylor Verdin MD [facility] 10/18/22 Office Visit Holly Fregoso PA [facility] 09/21/22 Office Visit Holly Fregoso PA [facility] 01/16/22 Office Visit Radha Trinidad PA [facility] Showing recent visits within past 540 days with a meds authorizing provider and meeting all other requirementsFuture AppointmentsDate Type Provider Dept 06/06/23 Appointment Taylor Verdin MD [facility] Showing future appointments within next 150 days with a meds authorizing provider and meeting all other requirementsLast refill wasNuvaRing 0.12-0.015 mg/24 hr vaginal insert 1 Each 0 02/05/2023 -- Sig: Insert 1 Each into vagina once every month. Insert vaginally and leave in place for 3 consecutive weeks, then remove for 1 week. 03861-9Gsxvmeqjw encounter NwzvOA3392-92-13C83:13:16Telephone encounter NoteTXT1.2.840.048434.1.13.104.2.7. 2.416826|[id number] for patient ihyw291500798QodizhkNidia HA[facility]INSPRES[facility] - [address] Ny[id number] 3FYVIKPCEPGMHMFVPITJOTZ7259-69-82U9 6:13:161.2.840.034417.1.72.3.15|1.2 .840.389815.1.13.104.2.7.2.727879_1 [id number] 2023-03-06 7432-72-18L10:35:12Formatting of [facility] - 15:35:12 this note might be different from Health the original.NuvaRing 0.12-0.015 mg/24 hr vaginal insertInsert 1 Each into vagina once every month. Insert vaginally and leave in place for 3 consecutive weeks, then remove for 1 weekDispense: 1 Each Refills: 0 ordered 91180-3Hrxumusah encounter UlmuUL0312-79-30J98:38:00Telephone encounter NoteTXT1.2.840.553163.1.13.104.2.7. 2.426473|[id number] for patient [address] Bd[id number] 2KPHNOGVFWIIENAPKHMOAVM7950-77-22E8 5:38:001.2.840.022346.1.72.3.15|1.2 .840.163814.1.13.104.2.7.2.727879_1 [id number] 2023-02-26 4906-62-52O10:04:23Formatting of Sabrina Umanzor [facility] - 09:04:23 this note is different from the Health original.Requested Prescriptions Pending Prescriptions Disp Refills OZEMPIC 2 mg/dose (8 mg/3 mL) PnIj [Pharmacy Med Name: Ozempic (2 MG/DOSE) 8 MG/3ML Subcutaneous Solution Pen-injector] 3 mL 0 Sig: INJECT 2 MG UNDER THE SKIN WEEKLY Off-Protocol Failed - 02/25/2023 2:53 PM Failed - Medication not assigned to a protocol, forward to provider. Passed - Valid encounter within last 12 months Recent VisitsDate Type Provider Dept 04/18/22 Telemedicine Visit Radha Trinidad PA [facility] Showing recent visits within past 365 days and meeting all other requirementsFuture AppointmentsNo visits were found meeting these conditions.Showing future appointments within next 365 days and meeting all other requirements Rerouting to correct pool/clinician 69093-3Hfutjaocc encounter JeklYY8055-95-58Z47:05:25Telephone encounter NoteTXT1.2.840.324159.1.13.104.2.7. 2.998510|[id number] for patient hlyj739920214Fbnxx Jackson [address] PulyEeuh[id number] 3JSYEOETXEXUDYNTBMTIHHR5694-38-24U0 9:05:251.2.840.437220.1.72.3.15|1.2 .840.417010.1.13.104.2.7.2.727879_1 [id number]
--- NOTE | 2023-07-15 14:41 | RAD REPORT ---
EXAM DESCRIPTION: RAD - Lumbar Spine 3 Views - 07/15/2023 2:12 pm CLINICAL HISTORY: Back pain FINDINGS: No fracture or dislocation is seen. Mild spondylosis T12-L1
--- NOTE | 2023-07-15 14:42 | RAD REPORT ---
EXAM DESCRIPTION: RAD - Thoracic Spine Ap/Lat - 07/15/2023 2:12 pm CLINICAL HISTORY: Back pain FINDINGS: Mild scoliosis No dislocation No fracture is seen
--- NOTE | 2023-07-15 14:44 | EDPHYS ---
Physician Documentation [facility] Name: Kelsey Harrell Age: 38 yrs Sex: Female : 1985 Arrival Date: 07/15/2023 Time: 13:04 Bed 3 Private MD: MIKE Physician Tony Morgan HPI: 07/15 13:08 This 38 yrs old Female presents to ER via EMS with complaints of back pain. jh7 13:08 The patient presents with pain that is acute, and an injury. The symptoms are located jh7 in the thoracic area and lumbar area. Onset: The symptoms/episode began/occurred acutely. The pain does not radiate. Associated signs and symptoms: The patient has no apparent associated signs or symptoms. The problem was sustained during a fall, while walking. 38-year-old female tripped over a cord while walking and states that she felt a pop when she landed on her back. Complains of thoracic and lumbar pain. History of sciatica, herniated disc, and musculoskeletal disorder. 1000 mg of Tylenol and 50 mcg of fentanyl given in route.. Historical: - Allergies: 13:11 No Known Allergies; mb9 - Home Meds: 13:11 gabapentin 300 mg Oral cap 1 cap 3 times per day [Active]; metformin 1 Oral tab 2 times mb9 per day [Active]; - PMHx: 13:11 diabetes mellitus; neuropathy; Skeletal bone disorder (neuropathy); Chronic pain mb9 (neuropathy); - PSHx: 13:11 None; mb9 - Immunization history:: Adult Immunizations up to date. - Social history:: Smoking status: Patient denies any tobacco usage or history of. ROS: 13:08 Constitutional: Negative for fever, chills, and weight loss, Eyes: Negative for injury, jh7 pain, redness, and discharge, Neck: Negative for injury, pain, and swelling, Cardiovascular: Negative for chest pain, palpitations, and edema, Respiratory: Negative for shortness of breath, cough, wheezing, and pleuritic chest pain, Abdomen/GI: Negative for abdominal pain, nausea, vomiting, diarrhea, and constipation, MS/Extremity: Negative for injury and deformity, Skin: Negative for injury, rash, and discoloration, Neuro: Negative for headache, weakness, numbness, tingling, and seizure, 13:08 Back: Positive for pain at rest, pain with movement, Negative for radiated pain, 13:08 All other systems are negative, Exam: 13:08 Constitutional: This is a well developed, well nourished patient who is awake, alert, jh7 and in no acute distress. Head/Face: Normocephalic, atraumatic. Neck: Trachea midline, no thyromegaly or masses palpated, and no cervical lymphadenopathy. Supple, full range of motion without nuchal rigidity, or vertebral point tenderness. No Meningismus. Cardiovascular: Regular rate and rhythm with a normal S1 and S2. No gallops, murmurs, or rubs. Normal PMI, no JVD. No pulse deficits. Respiratory: Lungs have equal breath sounds bilaterally, clear to auscultation and percussion. No rales, rhonchi or wheezes noted. No increased work of breathing, no retractions or nasal flaring. Abdomen/GI: Soft, non-tender, with normal bowel sounds. No distension or tympany. No guarding or rebound. No evidence of tenderness throughout. Skin: Warm, dry with normal turgor. Normal color with no rashes, no lesions, and no evidence of cellulitis. MS/ Extremity: Pulses equal, no cyanosis. Neurovascular intact. Full, normal range of motion. Neuro: Awake and alert, GCS 15, oriented to person, place, time, and situation. Motor strength 5/5 in all extremities. Sensory grossly intact. Normal gait. 13:08 Back: pain, that is moderate, of the lumbar area and thoracic area, ROM is painful, with all movement, normal spinal alignment noted, CVA tenderness, is absent, Vital Signs: 13:08 BP 111 / 66; Pulse 86; Resp 18; Temp 98; Pulse Ox 99% ; Weight 90.72 kg; Height 5 ft. 2 mb9 in. ; Pain 8/10; 14:12 BP 101 / 65; Pulse 77; Resp 18; Pulse Ox 99% on R/A; mb9 13:08 Body Mass Index 36.58 (90.72 kg, 157.48 cm) mb9 13:08 Pain Scale: Adult mb9 MDM: 13:08 Patient medically screened. [facility] 14:45 Differential diagnosis: arthritis, chronic back pain, Fracture Osteoarthritis vertebral jh7 fracture. Data reviewed: vital signs, nurses notes, radiologic studies, plain films. Care significantly affected by the following chronic conditions: Diabetes. Counseling: I had a detailed discussion with the patient and/or guardian regarding the historical points, exam findings, and any diagnostic results supporting the discharge/admit diagnosis, to return to the emergency department if symptoms worsen or persist or if there are any questions or concerns that arise at home. 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): fdkgevyzf741 mg PO once 7 Disposition Summary: 07/15/23 14:44 Discharge Ordered Notes: Location: Home [facility] Problem: new [facility] Symptoms: are unchanged 7 Condition: Stable 7 Diagnosis - Contusion of back wall of thorax jh7 - Low back pain 7 Followup: [facility] - With: Private Physician - When: 2 - 3 days - Reason: Recheck today's complaints Discharge Instructions: - Discharge Summary Sheet 7 - Chronic Back Pain jh7 - Musculoskeletal Pain 7 - Back Exercises [facility] Forms: - Medication Reconciliation Form 7 - Thank You Letter 7 - Patient Portal Instructions 7 - Leadership Thank You Letter [facility] Signatures: Dispatcher [employer] Gloria Streeter, STEAM TABLE WORKER STEAM TABLE WORKER [facility] Padmini Rashid, RN RN mb9
--- NOTE | 2023-07-15 14:44 | ER ---
Nurse's Notes [facility] Name: Kelsey Harrell Age: 38 yrs Sex: Female : 1985 Arrival Date: 07/15/2023 Time: 13:04 Bed 3 Private MD: Diagnosis: Contusion of back wall of thorax;Low back pain Presentation: 07/15 13:08 Chief complaint: EMS states: "toned out for slipping on cord from standing and falling. mb9 Pt said she heard back "pop." Pt complaining of sharp/stabbing pain to mid thoracic area. Pt denies LOC, did not hit head, and does not taken blood thinners. Gave 1 g of Tylenol and 50 mcg of Fentanyl via 20 g to right FA.". Coronavirus screen: Vaccine status: Patient reports being unvaccinated. Ebola Screen: No symptoms or risks identified at this time. Initial Sepsis Screen: Does the patient meet any 2 criteria? No. Patient's initial sepsis screen is negative. Does the patient have a suspected source of infection? No. Patient's initial sepsis screen is negative. Risk Assessment: Do you want to hurt yourself or someone else? Patient reports no desire to harm self or others. Onset of symptoms was July 15, 2023. 13:08 Method Of Arrival: EMS: [facility] mb9 13:08 Acuity: LENA 3 mb9 Triage Assessment: 13:12 General: Appears uncomfortable, Behavior is anxious. Pain: Complains of pain in back mb9 Pain does not radiate. Pain currently is 8 out of 10 on a pain scale. Quality of pain is described as sharp, stabbing, Pain began suddenly, Is continuous. EENT: No signs and/or symptoms were reported regarding the EENT system. Neuro: Tong Agitation-Sedation Scale (RASS): 0 - Alert and Calm Level of Consciousness is awake, alert, obeys commands, Oriented to person, place, time, situation, Appropriate for age. Cardiovascular: Patient's skin is warm and dry. Respiratory: Airway is patent Respiratory effort is even, unlabored, Respiratory pattern is regular, symmetrical. GI: No signs and/or symptoms were reported involving the gastrointestinal system. : No signs and/or symptoms were reported regarding the genitourinary system. Derm: Skin is pink, warm \\T\\ dry. Musculoskeletal: Range of motion: intact in all extremities. Historical: - Allergies: 13:11 No Known Allergies; mb9 - Home Meds: 13:11 gabapentin 300 mg Oral cap 1 cap 3 times per day [Active]; metformin 1 Oral tab 2 times mb9 per day [Active]; - PMHx: 13:11 diabetes mellitus; neuropathy; Skeletal bone disorder (neuropathy); Chronic pain mb9 (neuropathy); - PSHx: 13:11 None; mb9 - Immunization history:: Adult Immunizations up to date. - Social history:: Smoking status: Patient denies any tobacco usage or history of. Screenin:13 [facility] ED Fall Risk Assessment (Adult) History of falling in the last 3 months, mb9 including since admission Yes- single mechanical fall (1 pt) Confusion or Disorientation No (0 pts) Intoxicated or Sedated No (0 pts) Impaired Gait No (0 pts) Mobility Assist Device Used No (0 pt) Altered Elimination No (0 pt) Score/Fall Risk Level 0 - 2 = Low Risk Oriented to surroundings, Maintained a safe environment, Educated pt \\T\\ family on fall prevention, incl call for assistance when getting out of bed. Abuse screen: Denies threats or abuse. Nutritional screening: No deficits noted. Tuberculosis screening: No symptoms or risk factors identified. Assessment: 13:13 Reassessment: see triage assessment. mb9 14:12 Reassessment: Patient appears in no apparent distress at this time. No changes from mb9 previously documented assessment. Patient and/or family updated on plan of care and expected duration. Pain level reassessed. Patient is alert, oriented x 3, equal unlabored respirations, skin warm/dry/pink. 15:35 Reassessment: Patient appears in no apparent distress at this time. Patient and/or iw family updated on plan of care and expected duration. Pain level reassessed. Patient is alert, oriented x 3, equal unlabored respirations, skin warm/dry/pink. Vital Signs: 13:08 BP 111 / 66; Pulse 86; Resp 18; Temp 98; Pulse Ox 99% ; Weight 90.72 kg; Height 5 ft. 2 mb9 in. ; Pain 8/10; 14:12 BP 101 / 65; Pulse 77; Resp 18; Pulse Ox 99% on R/A; mb9 13:08 Body Mass Index 36.58 (90.72 kg, 157.48 cm) mb9 13:08 Pain Scale: Adult mb9 ED Course: 13:07 Patient arrived in ED. 13:08 Padmini Rashid, RN is Primary Nurse. mb9 13:08 [facility] Goldberg [facility]NP [facility] 13:08 Tony Morgan MD is Attending Physician. 7 13:11 Triage completed. mb9 13:11 Arm band placed on. mb9 13:12 Placed in gown. Bed in low position. Call light in reach. Side rails up X 1. Client mb9 placed on continuous cardiac and pulse oximetry monitoring. NIBP monitoring applied. 13:13 No provider procedures requiring assistance completed. Maintain EMS IV. Dressing mb9 intact. Good blood return noted. Site clean \\T\\ dry. Gauge \\T\\ site: 20 g right FA. 14:14 XRAY Thoracic Spine (Ap/lat) In Process Unspecified. EDMS 14:15 XRAY Lumbar Spine (3 Views) In Process Unspecified. EDMS 15:22 IV discontinued, intact, bleeding controlled, No redness/swelling at site. Pressure mb9 dressing applied. 15:35 Provided Education on: . 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 mb9 Outcome: 14:44 Discharge ordered by . [facility] 15:36 Discharged to home ambulatory, iw 15:36 Condition: good 15:36 Discharge instructions given to patient, Instructed on discharge instructions, follow up and referral plans. Demonstrated understanding of instructions, follow-up care, 15:37 Patient left the ED. iw Signatures: Dispatcher [employer] EDMS Tami Escalante RN RN iw Botello, Elizabeth Gloria Goldberg FNP ICE GUARD INSPECTOR [facility] Padmini Rashid, RN RN mb9 Corrections: (The following items were deleted from the chart) 13:11 13:08 Chief complaint: EMS states: "toned out for slipping on cord from standing and mb9 falling. Pt said she heard back "pop." Pt complaining of sharp/stabbing pain to mid thoracic area. Gave 1 g of Tylenol and 50 mcg of Fentanyl via 20 g to right FA." mb9
[2023-07-15 16:25] VITALS: TEMP 98; O2SAT 99
[2023-07-15 16:26] VITALS: BP 101/65
== END 2023-07-15 15:37 | disposition home or self-care (01) ==
LOC: ER 13:04
DX: S20.229A Contusion of unspecified back wall of thorax, initial encounter (principal)
CPT/HCPCS: 72070; 72100; 99283

== ENCOUNTER 2023-11-12 16:07 | Emergency (ER) | payer SELFPAY ==
--- NOTE | 2023-11-12 16:42 | EDPHYS ---
Physician Documentation [facility] Name: Kelsey Harrell Age: 38 yrs Sex: Female : 1985 Arrival Date: 11/12/2023 Time: 16:07 Bed IW3 Private MD: ED Physician Kei Umaña HPI: 11/11 16:26 This 38 yrs old Female presents to ER via Ambulatory with complaints of Nose ms3 Pain. 16:26 38-year-old female with past medical history of autoimmune disease, diabetes, sciatica ms3 presents to the emergency department for growth in right nare there is applying pressure inside her nose. Patient states pain is an 8/10. Patient denies any alleviating or inciting factors. Historical: - Allergies: 16:34 No Known Allergies; ph - PMHx: 16:34 Chronic pain (neuropathy); diabetes mellitus; neuropathy; Skeletal bone disorder ph (neuropathy); - Immunization history:: Adult Immunizations unknown. - Infectious Disease History:: Denies. - Social history:: Smoking status: Patient reports the use of cigarette tobacco products. ROS: 16:26 Constitutional: Negative for fever, and chills. Neck: Negative for injury, pain, and ms3 swelling, Cardiovascular: Negative for chest pain, and palpitations. 16:26 Skin: Negative for injury, rash, and discoloration, 16:26 ENT: Positive for Nose pain, Nasal gowth, Exam: 16:26 Constitutional: This is a well developed, well nourished patient who is awake, alert, ms3 and in no acute distress. Neck: Trachea midline, no cervical lymphadenopathy. Supple, full range of motion without nuchal rigidity, or vertebral point tenderness. No Meningismus. Chest/axilla: Normal chest wall appearance and motion. Nontender with no deformity. Cardiovascular: Regular rate and rhythm with a normal S1 and S2. No gallops, murmurs, or rubs. Normal PMI, no JVD. No pulse deficits. Respiratory: Lungs have equal breath sounds bilaterally, clear to auscultation and percussion. No rales, rhonchi or wheezes noted. No increased work of breathing, no retractions or nasal flaring. Abdomen/GI: Soft, non-tender, with normal bowel sounds. No distension or tympany. No guarding or rebound. No evidence of tenderness throughout. 16:26 ENT: Nose: erythema superior right nare with blistering, Vital Signs: 16:20 Pulse 77; Resp 18; Temp 97.8; Pulse Ox 98% on R/A; Weight 88.9 kg; Height 5 ft. 4 in. ; ph 16:20 Body Mass Index 33.64 (88.90 kg, 162.56 cm) ph MDM: 16:26 Differential diagnosis: cellulitis vs abscess. Data reviewed: vital signs, nurses ms3 notes, and as a result, I will discharge patient. Care significantly affected by the following chronic conditions: Diabetes. Counseling: I had a detailed discussion with the patient and/or guardian regarding the historical points, exam findings, and any diagnostic results supporting the discharge/admit diagnosis, the need for outpatient follow up, to return to the emergency department if symptoms worsen or persist or if there are any questions or concerns that arise at home. Special discussion: I discussed with the patient/guardian in detail that at this point there is no indication for admission to the hospital. It is understood, however, that if the symptoms persist or worsen the patient needs to return immediately for re-evaluation. ED course: Discussed physical exam findings with patient. Patient to follow-up with primary care physician in 2 to 3 days. Patient understands and agrees with plan. All questions were answered. Return precautions discussed include worsening symptoms, or any other concerns.. 16:39 Patient medically screened. ms3 Administered Medications: No medications were administered Disposition Summary: 11/12/23 16:42 Discharge Ordered Notes: Location: Home ms3 Condition: Stable ms3 Diagnosis - Nasal cellulitis ms3 Followup: ms3 - With: Scooby Avila, - When: 2 - 3 days - Reason: Recheck today's complaints Discharge Instructions: - Discharge Summary Sheet ms3 Forms: - Medication Reconciliation Form ms3 - Thank You Letter ms3 - Antibiotic Education ms3 - Prescription Opioid Use ms3 - Patient Portal Instructions ms3 - Leadership Thank You Letter ms3 Prescriptions: - mupirocin 2 % Topical ointment - apply 1 application TOPICAL route 4 times per day; 22 gram; Refills: 0, Product ms3 Selection Permitted - Cephalexin 500 mg Oral Capsule - take 1 capsule ORAL route every 6 hours for 10 days; 40 capsule; Refills: 0, ms3 Product Selection Permitted Signatures: Yasmeen Keller, RN RN ph Chasidy, Kei, DO DO ms3
--- NOTE | 2023-11-12 16:42 | ER ---
Nurse's Notes [facility] Name: Kelsey Harrell Age: 38 yrs Sex: Female : 1985 Arrival Date: 11/12/2023 Time: 16:07 Bed IW3 Private MD: Diagnosis: Nasal cellulitis Presentation: 11/11 16:20 Chief complaint: Patient states: Seasonal allergy symptoms that have been ongoing for a ph few days, noticed a painful lump in the R nostril, no drainage, no fever. Coronavirus screen: Vaccine status: Patient reports receiving the 2nd dose of the covid vaccine. Ebola Screen: No symptoms or risks identified at this time. 16:20 Method Of Arrival: Ambulatory ph 16:33 Initial Sepsis Screen: Does the patient meet any 2 criteria? No. Patient's initial ph sepsis screen is negative. Does the patient have a suspected source of infection? No. Patient's initial sepsis screen is negative. Risk Assessment: Do you want to hurt yourself or someone else? Patient reports no desire to harm self or others. Onset of symptoms was November 12, 2023. 16:33 Acuity: LENA 3 ph Triage Assessment: 16:30 General: Appears in no apparent distress. uncomfortable, Behavior is calm, cooperative, ph appropriate for age. Pain: Complains of pain in nose. Neuro: Level of Consciousness is awake, alert, obeys commands, Oriented to person, place, time, situation. Respiratory: Airway is patent Respiratory effort is even, unlabored. Musculoskeletal: Circulation, motion, and sensation intact. Range of motion: intact in all extremities. Historical: - Allergies: 16:34 No Known Allergies; ph - PMHx: 16:34 Chronic pain (neuropathy); diabetes mellitus; neuropathy; Skeletal bone disorder ph (neuropathy); - Immunization history:: Adult Immunizations unknown. - Infectious Disease History:: Denies. - Social history:: Smoking status: Patient reports the use of cigarette tobacco products. Screenin:30 [facility] ED Fall Risk Assessment (Adult) History of falling in the last 3 months, ph including since admission No falls in past 3 months (0 pts) Confusion or Disorientation No (0 pts) Intoxicated or Sedated No (0 pts) Impaired Gait No (0 pts) Mobility Assist Device Used No (0 pt) Altered Elimination No (0 pt) Score/Fall Risk Level 0 - 2 = Low Risk Oriented to surroundings, Maintained a safe environment. Abuse screen: Denies threats or abuse. Denies injuries from another. Nutritional screening: No deficits noted. Tuberculosis screening: No symptoms or risk factors identified. Vital Signs: 16:20 Pulse 77; Resp 18; Temp 97.8; Pulse Ox 98% on R/A; Weight 88.9 kg; Height 5 ft. 4 in. ; ph 16:20 Body Mass Index 33.64 (88.90 kg, 162.56 cm) ph ED Course: 16:09 Patient arrived in ED. mr 16:11 Kei Umaña DO is Attending Physician. ms3 16:33 Triage completed. ph 16:34 Arm band placed on Patient placed in waiting room, Patient notified of wait time. ph 16:41 Scooby Avila DO is Referral Physician. ms3 16:58 Yasmeen Keller, RN is Primary Nurse. ph 16:58 No provider procedures requiring assistance completed. Patient did not have IV access ph during this emergency room visit. 18:29 Patient has correct armband on for positive identification. Bed in low position. Call ph light in reach. Side rails up X 1. Pulse ox on. NIBP on. Administered Medications: No medications were administered Medication: 18:28 VIS not applicable for this client. ph Outcome: 16:42 Discharge ordered by . ms3 16:58 Patient left the ED. ph 16:58 Discharged to home ambulatory, ph 16:58 Condition: good 16:58 Discharge instructions given to patient, Instructed on discharge instructions, follow up and referral plans. medication usage, Demonstrated understanding of instructions, follow-up care, medications, Prescriptions given X 2, Signatures: Padmini Pacheco, Reg Reg mr Yasmeen Keller, RN RN Kei Umaña DO DO ms3
--- OUTSIDE RECORDS SUMMARY | 2023-11-12 16:55 | XMS REPORT | Continuity of Care Document ---
Author Name Unknown Address [address] [facility] [address] [place] [address] [facility] Address [address] [facility] [address] [place] [address] Care Team Providers Care Log Haul Chain Feeder Name Role Phone Taylor Verdin MD Primary Care [facility] AZALIA MICHEL Attending Clinician Unavailable CURTIS MORLEY Attending Clinician UnavailNORBERT Dyer Attending Clinician Unavailable NORBERT DIAZ Attending Clinician Unavailable NAINA SEGOVIA Attending Clinician Unavailable MARIE GARZON Attending Clinician Unavailable TAYLOR VERDIN Attending Clinician Priscilla Richa Jamison MD Attending Clinician Unavailable Taylor Verdin MD Attending Clinician Marie Garzon MD Attending Clinician [phone] Lab, Ang - Db Attending Clinician Unavailable RICHA DOMINGUEZ Attending Clinician Unavailable BETH PHAM Attending Clinician Unavailable Carmen Figueroa MD Attending Clinician + [phone] Beth Rodriguez Attending Clinician Doctor Unassigned, [place] Attending Clinician U Curtis Johnson MD Attending Clinician 2, Adc Lab Attending Clinician Unavailable CARMEN FIGUEROA Attending Clinician UnaEZ Umanzor Attending Clinician UnavailEZ Saenz Attending Clinician UnavailELDER Del Valle Attending Clinician Unavaila hollie Diaz MD, Norbert Vidal Attending Clinician [phone] Janine LAWLER, Yvonne Attending Clinician UnavailTacos Burgos MD Attending Clinician +[phone] EAMON CARRASCO Attending Clinician Unavailable EAMON CARRASCO Attending Clinician Unavailable Gisella MCMANUSP, Chew Attending Clinician [phone] HOLLY FREGOSO Attending Clinician Unavailable Radha Andrade Attending Clinician [phone] Raul Wilkinson MD Attending Clinician [phone] DUNCAN RAMOS Attending Clinician UnavailDuncan Red MD Attending Clinician [phone] BIA CHAMORRO Attending Clinician Unavailable Sabrina Bee MA Attending Clinician Unavailabl demetri [facility] Attending Clinician Unavailable Jacob CHONG, Harjinder White Attending Clinician HARJINDER JAMES Attending Clinician Unavail Vanda Wright MD Attending Clinician [phone] Elder Tena MD Attending Clinician [phone] MEGHAN MARKHAM Attending Clinician Unavailable Skyler Ferrari MD Attending Clinician [phone] Holly Herrera Attending Clinician [phone] Meghan Markham MD Attending Clinician [phone] SKYLER FERRARI Attending Clinician Unavail able SKYLER FERRARI Attending Clinician Unavail able [facility] Sleep Lab Attending Clinician UnavailKalli Velasco MD Attending Clinician + [phone] KALLI JEFFERSON Attending Clinician UnavailKALLI Velasco Attending Clinician UnavailLana Shrestha RN Attending Clinician Unavailable Argentina Looney MD Attending Clinician [phone] ARGENTINA LOONEY Attending Clinician Unavailable CAMILO CORLEY Attending Clinician Unazackery Corley MD, Camilo Lobo Attending Clinician [phone] Lab, [facility] [address] Attending Clinician Unavai lable TRINIDAD, RADHA Attending Clinician Unavailable Azalia Michel MD Attending Clinician [phone] Ashley Hernandez Attending Clinician + [phone] Catalina Mendez PA-C Attending Clinician +[phone] Kristi CHONG, Byron Ward Attending Clinician +[phone] Only, Adc Test Attending Clinician Unavailable [place] Attending Clinician [phone] Wade CHONG, Rene Mar Attending Clinician [phone] SAMINA BOOKER Attending Clinician Unavailable Samina Martinez Attending Clinician [phone] Unknown, Attending Attending Clinician Unavailab brandon Mcdonough, [facility] Adult Urgent Attending Clinician Unav ailable Therapy, [facility] Covid Infusion Attending Clinician Unavailable Tejinder Valles MD Attending Clinician + [phone] TEJINDER VALLES Attending Clinician Unavailable ASHLEY RAINES Attending Clinician Unavailable Alicja CROWDER, Ever Attending Clinician + UNKNOWN, ATTENDING Attending Clinician Unavailab brandon Venegas MD, Barrington Porter Attending Clinician + [phone] CATALINA MENDEZ Attending Clinician Unavail able HEATH JOHNSON Attending Clinician Unavailable Biju CHONG, Brady Moreira Attending Clinician [phone] Rj CHONG, Amando Umanzor Attending Clinician +- [phone] Elena LAWLER, Norma Burch Attending Clinician Unavailab NEW Maya Attending Clinician Unavaila ble Olivia, [facility] Adult Urgent Attending Clinician Judy Souza MD, Chan Attending Clinician Unavailable Emeli CROWDER, Cait Attending Clinician [phone] Vineet CROWDER, Monika Vogel Attending Clinician EMILY ARGUETA Attending Clinician Unavaila hollie Ortega, [facility] Resident Attending Clinician Unavailab brandon Avila MD, Jenny Mantilla Attending Clinician [phone] Taurus Guadalupe MD Attending Clinician [phone] TAURUS GUADALUPE Attending Clinician Unavailable Tacos Giron DO Attending Clinician [phone] Only, Pcp Test Attending Clinician Unavailable Emily Fay Attending Clinician + [phone] Aiyana Bojorquez Attending Clinician +[phone] [facility] Attending Clinician Unavailable Micheline Mixon MD Attending Clinician +[phone] MICHELINE MIXON Attending Clinician Unavailable AIYANA HOLLINGSWORTH Attending Clinician Unavailable Andrea Galeano PTA, Maki A Attending Clinic hoang Unavailable Jorge Luis CHONG, Brady Umanzor Attending Clinician [phone] Bessie Alexandre RN Attending Clinician Unavailable Fellow, Cardiology Attending Clinician Unavailab brandon CROWDER, Octavio Vidal Attending Clinician +- [phone] OCTAVIO ANDERSON Attending Clinician Unavailable Rain Ross PT Attending Clinician UnaBRADY Purvis Attending Clinician Unavailable Lucille Banks LPC Attending Clinician [phone] LUCILLE BANKS Attending Clinician Unavaila Selena Ortez MD Attending Clinician [phone] Tony Grigsby RN Attending Clinician Unavailab Keri Acosta MD Attending Clinician [phone] Pcp, Patient Does Not Have A Attending Clinician Gordy Corbett MD Attending Clinician + [phone] GORDY CORBETT Attending Clinician Unavaila Odilia Farnsworth MD Attending Clinician [phone] ODILIA MEJIA Attending Clinician Unavailab Elaina Suarez MD Attending Clinician +[phone] APPLE BROWN Attending Clinician Unavailable Bill Luque Attending Clinician UnavailKami Garrido Attending Clinician Unavailable Radha Wilson Attending Clinician Unavailable Reyes Martinez Attending Clinician Unavailable Genesis Bustamante Attending Clinician Unavailable AZALIA MICHEL Admitting Clinician Unavailable CURTIS MORLEY Admitting Clinician Unavaila NORBERT Humphries Admitting Clinician Unavailable Norbert Diaz MD Admitting Clinician [phone] SKYLER FERRARI Admitting Clinician Unavail EZ Coronado Admitting Clinician Unavaila CAMILO Alonzo Admitting Clinician Judy Michel MD, Azalia Admitting Clinician Curtis Morley MD Admitting Clinician + [phone] APPLE BROWN Admitting Clinician Unavailable Payers Payer Name Policy Type Policy Number Effective Date Expirati on Date Source [facility] [id number] 00:00:00 [facility] [id number] 2022 00:00:00 Problems Condition Name Condition Details Condition Category Status Onset Date Resolution Date Last Treatment Date Treating Clinician Comments Source Obesity (BMI 30-39.9) Obesity (BMI 30-39.9) Disease Active 09-10 00:00: 00 [facility] GENNY (generaliz ed anxiety disorder) GENNY (generaliz ed anxiety disorder) Disease Active 04-05 00:00: 00 [facility] PTSD (post-trau matic stress disorder) PTSD (post-trau matic stress disorder) Disease Active 04-05 00:00: 00 [facility] Persistent depressive disorder Persistent depressive disorder Disease Active 04-05 00:00: 00 [facility] Gastroesop hageal reflux disease, unspecifie d whether esophagiti s present Gastroesop hageal reflux disease, unspecifie d whether esophagiti s present Disease Active 01-02 00:00: 00 Overview: Formattin g of this note might be different from the original. Added automatic ally from request for surgery [id number] [facility] Dysphagia, pharyngoes ophageal phase Dysphagia, pharyngoes ophageal phase Disease Active 01-02 00:00: 00 Overview: Formattin g of this note might be different from the original. 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 Disease Active - 00:00: 00 [facility] Nausea Nausea Disease Active 01-01 00:00: 00 [facility] AKHIL (obstructi ve sleep apnea) AKHIL (obstructi ve sleep apnea) Disease Active 3-12 00:00: 00 [facility] Sleep difficulti es Sleep difficulti es Disease Active 2- 00:00: 00 [facility] Chronic fatigue Chronic fatigue Disease Active 2- 00:00: 00 [facility] Chronic nausea Chronic nausea Disease Active 2 00:00: 00 [facility] History of recurrent miscarriag es History of recurrent miscarriag es Disease Active 1- 00:00: 00 [facility] Patient desires Patient desires Disease Active 1- 00:00: 00 [facility] Hirsutism Hirsutism Disease Active 2021-08 2 00:00: 00 [facility] Screen for STD (sexually transmitte d disease) Screen for STD (sexually transmitte d disease) Disease Active 2021-08 2- 00:00: 00 [facility] Vaginal discharge Vaginal discharge Disease Active 2021-08 2- 00:00: 00 [facility] Missed menses Missed menses Disease Active 2021-08 2- 00:00: 00 [facility] Pain pelvic Pain pelvic Disease Active 2021-08 2- 00:00: 00 [facility] History of PCOS History of PCOS Disease Active 2021-08 2-05 00:00: 00 [facility] Irregular menstrual cycle Irregular menstrual cycle Disease Active 2021-08 2-05 00:00: 00 [facility] External hemorrhoid s External hemorrhoid s Disease Active 5-17 00:00: 00 [facility] Grade II internal hemorrhoid s Grade II internal hemorrhoid s Disease Active 5-14 00:00: 00 Overview: Formattin g of this note might be different from the original. Added automatic ally from request for surgery [id number] [facility] Sacroiliit is Sacroiliit is Disease Active 2-11 00:00: 00 Overview: Formattin g of this note might be different from the original. Added automatic ally from request for surgery [id number] [facility] Loose stools Loose stools Disease Active 2019-08 0 00:00: 00 Overview: Formattin g of this note might be different from the original. Added automatic ally from request for surgery [id number] [facility] Blood in stool Blood in stool Disease Active 2019-08 00:00: 00 Overview: Formattin g of this note might be different from the original. Added automatic ally from request for surgery [id number] [facility] Pre-eclamp teodora affecting , antepartum Pre-eclamp teodora affecting , antepartum Disease Active 04-24 00:00: 00 [facility] Latex allergy Latex allergy Disease Active 04-17 00:00: 00 [facility] Latex allergy Latex allergy Disease Active 04-17 00:00: 00 [facility] Sciatic nerve disease, right Sciatic nerve disease, right Disease Active 02-10 00:00: 00 [facility] Modified White class B pregestati onal diabetes mellitus Modified White class B pregestati onal diabetes mellitus Disease Active 01-09 00:00: 00 [facility] BMI 35.0-35.9, adult BMI 35.0-35.9, adult Disease Active 12-31 00:00: 00 [facility] Chronic bilateral low back pain without sciatica Chronic bilateral low back pain without sciatica Disease Active 04-02 00:00: 00 [facility] Bronchitis Bronchitis Disease Active [place]: Formattin g of this note might be different from the original. COPD v. asthma [facility] Anxiety Anxiety Disease Active [facility] Fatty liver Fatty liver Disease Active [facility] Allergies, Adverse Reactions, Alerts Allergy Name Allergy Type Status Severity Reaction(s) Onset Date Inactive Date Treating Clinician Comments Source BUSPIRON E DRUG INGREDI Active High Other-Cmnt 10-24 00:00: 00 [facility] Buspiron e Propensi ty to adverse reaction s Active Other - See comments 10-24 00:00: 00 Can't sleep, cannot focus, confusion [facility] Buspiron e Drug Intolera nce Active Other - See comments 10-24 00:00: 00 Can't sleep, cannot focus, confusion [facility] Latex Drug Allergy Active Rash 12-06 00:00: 00 [facility] Latex Propensi ty to adverse reaction s Active Rash 12-06 00:00: 00 [facility] LATEX DRUG INGREDI Active Rash 12-06 00:00: 00 [facility] Social History Social Habit Start Date Stop Date Quantity Comments Source [facility] Alcohol intake 2023-10-15 00:00:00 2023-10-15 00:00:00 Current non-drinker of alcohol (finding) [facility] History of Social function 2023-04-09 00:00:00 2023-04-09 00:00:00 [facility] Exposure to SARS-CoV-2 (event) 2022-12-30 00:00:00 2023-01-09 09:52:00 Not sure [facility] Cigarettes smoked current (pack per day) - Reported 2022-09-21 00:00:00 2022-09-21 00:00:00 [facility] Cigarette pack-years 2022-09-21 00:00:00 2022-09-21 00:00:00 [facility] Tobacco use and exposure 2022-09-21 00:00:00 2022-09-21 00:00:00 Smokeless tobacco non-user [facility] Tobacco Comment 2022-05-16 00:00:00 2022-05-16 00:00:00 vapes [facility] History of tobacco use 2016-12-31 00:00:00 2020-07-20 00:00:00 Cigarette Smoker [facility] Sex Assigned At 1985 00:00:00 1985 00:00:00 [facility] Smoking Status Start Date Stop Date Source Ex-smoker 2022-09-21 00:00:00 2022-09-21 00:00:00 [facility] Occasional tobacco smoker 2020-06-30 00:00:00 [facility] Medications Ordered Medication Name Filled Medication Name Start Date Stop Date Current Medication? Ordering Clinician Indication Dosage Frequency Signature (SIG) Comments Components Source ESCITALOPRA M OXALATE 20 mg tablet 11-05 00:00: 00 Yes [id number] 20mg TAKE 1 TABLET BY MOUTH IN THE MORNING [facility] PROMETHAZIN E 12.5 mg tablet 0 11-05 00:00: 00 Yes [id number] TAKE 2 TABLETS BY MOUTH EVERY 6 HOURS NEEDED FOR NAUSEA AND VOMITING [facility] MECLIZINE 25 mg tablet 0 11-05 00:00: 00 Yes [id number] TAKE 1 TABLET BY MOUTH EVERY 8 HOURS NEEDED [facility] ESCITALOPRA M OXALATE 20 mg tablet 11-05 00:00: 00 Yes [id number] 20mg TAKE 1 TABLET BY MOUTH IN THE MORNING [facility] PROMETHAZIN E 12.5 mg tablet 11-05 00:00: 00 Yes [id number] TAKE 2 TABLETS BY MOUTH EVERY 6 HOURS NEEDED FOR NAUSEA AND VOMITING [facility] MECLIZINE 25 mg tablet 0 11-05 00:00: 00 Yes [id number] TAKE 1 TABLET BY MOUTH EVERY 8 HOURS NEEDED [facility] MECLIZINE 25 mg tablet 2023-0 10-15 00:00: 00 Yes [id number] TAKE 1 TABLET BY MOUTH EVERY 8 HOURS NEEDED [facility] MECLIZINE 25 mg tablet 2023-0 10-15 00:00: 00 Yes [id number] TAKE 1 TABLET BY MOUTH EVERY 8 HOURS NEEDED [facility] MECLIZINE 25 mg tablet 2023-0 10-15 00:00: 00 Yes [id number] TAKE 1 TABLET BY MOUTH EVERY 8 HOURS NEEDED [facility] MECLIZINE 25 mg tablet 10-15 00:00: 00 11-05 00:00 :00 No [id number] TAKE 1 TABLET BY MOUTH EVERY 8 HOURS NEEDED [facility] insulin NPH (NOVOLIN N NPH U-100 INSULIN) 100 unit/mL injection 10-14 15:10: 13 10-14 00:00 :00 No 5U inject 5 Units under the skin every morning and evening. [facility] insulin NPH (NOVOLIN N NPH U-100 INSULIN) 100 unit/mL injection 10-14 15:10: 10-14 00:00 :00 No 5U inject 5 Units under the skin every morning and evening. [facility] insulin NPH (NOVOLIN N NPH U-100 INSULIN) 100 unit/mL injection 10-14 00:00: 00 Yes [id number] 5U inject 5 Units under the skin every morning and evening. [facility] empaglifloz in (JARDIANCE) 25 mg Tab tablet 10-14 00:00: 00 Yes [id number] 25mg Take 1 tablet by mouth every morning. [facility] metFORMIN 1,000 mg tablet 10-14 00:00: 00 Yes [id number] 1000mg Take 1 tablet by mouth in the morning and 1 tablet in the evening. Take with meals. [facility] pioglitazon e 30 mg tablet 10-14 00:00: 00 Yes [id number] 30mg Take 1 tablet by mouth in the morning. [facility] tirzepatide (MOUNJARO) 12.5 mg/0.5 mL subcutaneou s injection 10-14 00:00: 00 Yes [id number] 12.5mg inject 12.5 mg under the skin weekly. [facility] insulin NPH (NOVOLIN N NPH U-100 INSULIN) 100 unit/mL injection 10-14 00:00: 00 Yes [id number] 5U inject 5 Units under the skin every morning and evening. [facility] empaglifloz in (JARDIANCE) 25 mg Tab tablet 10-14 00:00: 00 Yes [id number] 25mg Take 1 tablet by mouth every morning. [facility] metFORMIN 1,000 mg tablet 10-14 00:00: 00 Yes [id number] 1000mg Take 1 tablet by mouth in the morning and 1 tablet in the evening. Take with meals. [facility] pioglitazon e 30 mg tablet 10-14 00:00: 00 Yes [id number] 30mg Take 1 tablet by mouth in the morning. [facility] tirzepatide (MOUNJARO) 12.5 mg/0.5 mL subcutaneou s injection 10-14 00:00: 00 Yes [id number] 12.5mg inject 12.5 mg under the skin weekly. [facility] insulin NPH (NOVOLIN N NPH U-100 INSULIN) 100 unit/mL injection 10-14 00:00: 00 Yes [id number] 5U inject 5 Units under the skin every morning and evening. [facility] empaglifloz in (JARDIANCE) 25 mg Tab tablet 10-14 00:00: 00 Yes [id number] 25mg Take 1 tablet by mouth every morning. [facility] metFORMIN 1,000 mg tablet 10-14 00:00: 00 Yes [id number] 1000mg Take 1 tablet by mouth in the morning and 1 tablet in the evening. Take with meals. [facility] pioglitazon e 30 mg tablet 10-14 00:00: 00 Yes [id number] 30mg Take 1 tablet by mouth in the morning. [facility] tirzepatide (MOUNJARO) 12.5 mg/0.5 mL subcutaneou s injection 10-14 00:00: 00 Yes [id number] 12.5mg inject 12.5 mg under the skin weekly. [facility] insulin NPH (NOVOLIN N NPH U-100 INSULIN) 100 unit/mL injection 10-14 00:00: 00 Yes [id number] 5U inject 5 Units under the skin every morning and evening. [facility] empaglifloz in (JARDIANCE) 25 mg Tab tablet 10-14 00:00: 00 Yes [id number] 25mg Take 1 tablet by mouth every morning. [facility] metFORMIN 1,000 mg tablet 10-14 00:00: 00 Yes [id number] 1000mg Take 1 tablet by mouth in the morning and 1 tablet in the evening. Take with meals. [facility] pioglitazon e 30 mg tablet 10-14 00:00: 00 Yes [id number] 30mg Take 1 tablet by mouth in the morning. [facility] tirzepatide (MOUNJARO) 12.5 mg/0.5 mL subcutaneou s injection 10-14 00:00: 00 Yes [id number] 12.5mg inject 12.5 mg under the skin weekly. [facility] insulin NPH (NOVOLIN N NPH U-100 INSULIN) 100 unit/mL injection 10-14 00:00: 00 Yes [id number] 5U inject 5 Units under the skin every morning and evening. [facility] empaglifloz in (JARDIANCE) 25 mg Tab tablet 10-14 00:00: 00 Yes [id number] 25mg Take 1 tablet by mouth every morning. [facility] metFORMIN 1,000 mg tablet 10-14 00:00: 00 Yes [id number] 1000mg Take 1 tablet by mouth in the morning and 1 tablet in the evening. Take with meals. [facility] pioglitazon e 30 mg tablet 10-14 00:00: 00 Yes [id number] 30mg Take 1 tablet by mouth in the morning. [facility] tirzepatide (MOUNJARO) 12.5 mg/0.5 mL subcutaneou s injection 10-14 00:00: 00 Yes [id number] 12.5mg inject 12.5 mg under the skin weekly. [facility] insulin NPH (NOVOLIN N NPH U-100 INSULIN) 100 unit/mL injection 10-14 00:00: 00 Yes [id number] 5U inject 5 Units under the skin every morning and evening. [facility] empaglifloz in (JARDIANCE) 25 mg Tab tablet 10-14 00:00: 00 Yes [id number] 25mg Take 1 tablet by mouth every morning. [facility] metFORMIN 1,000 mg tablet 10-14 00:00: 00 Yes [id number] 1000mg Take 1 tablet by mouth in the morning and 1 tablet in the evening. Take with meals. [facility] pioglitazon e 30 mg tablet 10-14 00:00: 00 Yes [id number] 30mg Take 1 tablet by mouth in the morning. [facility] tirzepatide (MOUNJARO) 12.5 mg/0.5 mL subcutaneou s injection 10-14 00:00: 00 Yes [id number] 12.5mg inject 12.5 mg under the skin weekly. [facility] insulin NPH (NOVOLIN N NPH U-100 INSULIN) 100 unit/mL injection 10-14 00:00: 00 Yes [id number] 5U inject 5 Units under the skin every morning and evening. [facility] empaglifloz in (JARDIANCE) 25 mg Tab tablet 10-14 00:00: 00 Yes [id number] 25mg Take 1 tablet by mouth every morning. [facility] metFORMIN 1,000 mg tablet 10-14 00:00: 00 Yes [id number] 1000mg Take 1 tablet by mouth in the morning and 1 tablet in the evening. Take with meals. [facility] pioglitazon e 30 mg tablet 10-14 00:00: 00 Yes [id number] 30mg Take 1 tablet by mouth in the morning. [facility] tirzepatide (MOUNJARO) 12.5 mg/0.5 mL subcutaneou s injection 10-14 00:00: 00 Yes [id number] 12.5mg inject 12.5 mg under the skin weekly. [facility] MECLIZINE 25 mg tablet 09-21 00:00: 00 Yes [id number] TAKE 1 TABLET BY MOUTH EVERY 8 HOURS NEEDED [facility] PROMETHAZIN E 12.5 mg tablet 2023-0 09-21 00:00: 00 Yes [id number] TAKE 2 TABLETS BY MOUTH EVERY 6 HOURS NEEDED FOR NAUSEA AND VOMITING [facility] MECLIZ[facility] 25 mg tablet 4-0 09-21 00:00: 00 Yes [id number] TAKE 1 TABLET BY MOUTH EVERY 8 HOURS NEEDED [facility] PROMETHAZIN E 12.5 mg tablet 2023-0 09-21 00:00: 00 Yes [id number] TAKE 2 TABLETS BY MOUTH EVERY 6 HOURS NEEDED FOR NAUSEA AND VOMITING [facility] MECLIZINE 25 mg tablet 4-0 09-21 00:00: 00 Yes [id number] TAKE 1 TABLET BY MOUTH EVERY 8 HOURS NEEDED [facility] PROMETHAZIN E 12.5 mg tablet 4-0 09-21 00:00: 00 Yes [id number] TAKE 2 TABLETS BY MOUTH EVERY 6 HOURS NEEDED FOR NAUSEA AND VOMITING [facility] MECLIZINE 25 mg tablet 4-0 09-21 00:00: 00 Yes [id number] TAKE 1 TABLET BY MOUTH EVERY 8 HOURS NEEDED [facility] PROMETHAZIN E 12.5 mg tablet 2023-0 09-21 00:00: 00 Yes [id number] TAKE 2 TABLETS BY MOUTH EVERY 6 HOURS NEEDED FOR NAUSEA AND VOMITING [facility] MECLIZINE 25 mg tablet 4-0 09-21 00:00: 00 Yes [id number] TAKE 1 TABLET BY MOUTH EVERY 8 HOURS NEEDED [facility] PROMETHAZIN E 12.5 mg tablet 4-0 09-21 00:00: 00 Yes [id number] TAKE 2 TABLETS BY MOUTH EVERY 6 HOURS NEEDED FOR NAUSEA AND VOMITING [facility] MECLIZINE 25 mg tablet 4-0 09-21 00:00: 00 Yes [id number] TAKE 1 TABLET BY MOUTH EVERY 8 HOURS NEEDED [facility] PROMETHAZIN E 12.5 mg tablet 4-0 09-21 00:00: 00 Yes [id number] TAKE 2 TABLETS BY MOUTH EVERY 6 HOURS NEEDED FOR NAUSEA AND VOMITING [facility] PROMETHAZIN E 12.5 mg tablet 09-21 00:00: 00 Yes [id number] TAKE 2 TABLETS BY MOUTH EVERY 6 HOURS NEEDED FOR NAUSEA AND VOMITING [facility] PROMETHAZIN E 12.5 mg tablet 09-21 00:00: 00 Yes [id number] TAKE 2 TABLETS BY MOUTH EVERY 6 HOURS NEEDED FOR NAUSEA AND VOMITING [facility] PROMETHAZIN E 12.5 mg tablet 09-21 00:00: 00 Yes [id number] TAKE 2 TABLETS BY MOUTH EVERY 6 HOURS NEEDED FOR NAUSEA AND VOMITING [facility] PROMETHAZIN E 12.5 mg tablet 09-21 00:00: 00 11-05 00:00 :00 No [id number] TAKE 2 TABLETS BY MOUTH EVERY 6 HOURS NEEDED FOR NAUSEA AND VOMITING [facility] MECLIZINE 25 mg tablet 09-21 00:00: 00 10-15 00:00 :00 No [id number] TAKE 1 TABLET BY MOUTH EVERY 8 HOURS NEEDED [facility] FENTanyl PF (SUBLIMAZE (PF)) injection 09-12 20:56: 10 09-12 20:56 :10 No Slow IV Push, TITRATE - FOR PROCEDURE USE, 1 dose, Starting on Sun09/12/23 at 1456, Until Sun09/12/23 at 1456, Routine [facility] FENTanyl PF (SUBLIMAZE (PF)) injection 09-12 20:56: 10 09-12 20:56 :10 No Slow IV Push, TITRATE - FOR PROCEDURE USE, 1 dose, Starting on Sun09/12/23 at 1456, Until Sun09/12/23 at 1456, Routine [facility] midazolam (VERSED) injection 09-12 20:46: 26 09-12 20:46 :26 No IV Push, TITRATE - FOR PROCEDURE USE, 1 dose, Starting on Sun09/12/23 at 1446, Until Sun09/12/23 at 1446, Routine [facility] midazolam (VERSED) injection 09-12 20:46: 26 09-12 20:46 :26 No IV Push, TITRATE - FOR PROCEDURE USE, 1 dose, Starting on Sun09/12/23 at 1446, Until Sun09/12/23 at 1446, Routine [facility] FENTanyl PF (SUBLIMAZE (PF)) injection 09-12 20:40: 07 09-12 20:40 :07 No Slow IV Push, TITRATE - FOR PROCEDURE USE, 1 dose, Starting on Sun09/12/23 at 1440, Until Sun09/12/23 at 1440, Routine [facility] FENTanyl PF (SUBLIMAZE (PF)) injection 09-12 20:40: 07 09-12 20:40 :07 No Slow IV Push, TITRATE - FOR PROCEDURE USE, 1 dose, Starting on Sun09/12/23 at 1440, Until Sun09/12/23 at 1440, Routine [facility] FENTanyl PF (SUBLIMAZE (PF)) injection 09-12 20:34: 23 09-12 20:34 :23 No Slow IV Push, TITRATE - FOR PROCEDURE USE, 1 dose, Starting on Sun09/12/23 at 1434, Until Sun09/12/23 at 1434, Routine [facility] FENTanyl PF (SUBLIMAZE (PF)) injection 09-12 20:34: 23 09-12 20:34 :23 No Slow IV Push, TITRATE - FOR PROCEDURE USE, 1 dose, Starting on Sun09/12/23 at 1434, Until Sun09/12/23 at 1434, Routine [facility] lidocaine 1% (PF) (XYLOCAINE) injection 10 mL 09-12 20:30: 00 09-12 20:34 :00 No [id number] 10mL [facility] triamcinolo ne acetonide (KENALOG) injection 80 mg 09-12 20:30: 00 09-12 20:35 :00 No [id number] 80mg [facility] sodium bicarbonate 1 mEq/mL (8.4 %) injection 1 mL 09-12 20:30: 00 09-12 20:34 :00 No [id number] 1mL [facility] bupivacaine (preserv free) (SENSORCAIN E MPF) 0.25 % (2.5 mg/mL) injection 4 mL 09-12 20:30: 00 09-12 20:33 :00 No [id number] 4mL [facility] iohexoL (OMNIPAQUE 300-50 mL)) injection 1 mL 09-12 20:30: 00 09-12 20:33 :00 No [id number] 1mL [facility] iohexoL (OMNIPAQUE 300-50 mL)) injection 1 mL 09-12 20:30: 00 09-12 20:33 :00 No [id number] 1mL 1 mL, Intra-marsha cular, ONCE, 1 dose, On Sun09/12/23 at 1430, Routine [facility] bupivacaine (preserv free) (SENSORCAIN E MPF) 0.25 % (2.5 mg/mL) injection 4 mL 09-12 20:30: 00 09-12 20:33 :00 No [id number] 4mL 4 mL, Infiltrati on, ONCE, 1 dose, On Sun09/12/23 at 1430, Routine [facility] sodium bicarbonate 1 mEq/mL (8.4 %) injection 1 mL 09-12 20:30: 00 09-12 20:34 :00 No [id number] 1mL 1 mL, Infiltrati on, ONCE, 1 dose, On Sun09/12/23 at 1430, Routine [facility] triamcinolo ne acetonide (KENALOG) injection 80 mg 09-12 20:30: 00 09-12 20:35 :00 No [id number] 80mg 80 mg, Infiltrati on, ONCE, 1 dose, On Sun09/12/23 at 1430, Routine [facility] lidocaine 1% (PF) (XYLOCAINE) injection 10 mL 09-12 20:30: 09-12 20:34 :00 No [id number] 10mL 10 mL, Infiltrati on, ONCE, 1 dose, On Sun09/12/23 at 1430, Routine [facility] lidocaine 1% (PF) (XYLOCAINE) injection 10 mL 09-12 20:30: 00 09-12 20:34 :00 No [id number] 10mL [facility] triamcinolo ne acetonide (KENALOG) injection 80 mg 09-12 20:30: 00 09-12 20:35 :00 No [id number] 80mg [facility] sodium bicarbonate 1 mEq/mL (8.4 %) injection 1 mL 09-12 20:30: 00 09-12 20:34 :00 No [id number] 1mL [facility] bupivacaine (preserv free) (SENSORCAIN E MPF) 0.25 % (2.5 mg/mL) injection 4 mL 09-12 20:30: 00 09-12 20:33 :00 No [id number] 4mL Univers [facility] iohexoL (OMNIPAQUE 300-50 mL)) injection 1 mL 09-12 20:30: 00 09-12 20:33 :00 No [id number] 1mL [facility] iohexoL (OMNIPAQUE 300-50 mL)) injection 1 mL 09-12 20:30: 00 09-12 20:33 :00 No [id number] 1mL 1 mL, Intra-marsha cular, ONCE, 1 dose, On Sun09/12/23 at 1430, Routine [facility] bupivacaine (preserv free) (SENSORCAIN E MPF) 0.25 % (2.5 mg/mL) injection 4 mL 09-12 20:30: 00 09-12 20:33 :00 No [id number] 4mL 4 mL, Infiltrati on, ONCE, 1 dose, On Sun09/12/23 at 1430, Routine [facility] sodium bicarbonate 1 mEq/mL (8.4 %) injection 1 mL 09-12 20:30: 00 09-12 20:34 :00 No [id number] 1mL 1 mL, Infiltrati on, ONCE, 1 dose, On Sun09/12/23 at 1430, Routine [facility] triamcinolo ne acetonide (KENALOG) injection 80 mg 09-12 20:30: 00 09-12 20:35 :00 No [id number] 80mg 80 mg, Infiltrati on, ONCE, 1 dose, On Sun09/12/23 at 1430, Routine [facility] lidocaine 1% (PF) (XYLOCAINE) injection 10 mL 09-12 20:30: 00 09-12 20:34 :00 No [id number] 10mL 10 mL, Infiltrati on, ONCE, 1 dose, On Sun09/12/23 at 1430, Routine [facility] midazolam (VERSED) injection 09-12 20:29: 00 09-12 20:29 :00 No IV Push, TITRATE - FOR PROCEDURE USE, 1 dose, Starting on Sun09/12/23 at 1429, Until Sun09/12/23 at 1429, Routine [facility] midazolam (VERSED) injection 09-12 20:29: 00 09-12 20:29 :00 No IV Push, TITRATE - FOR PROCEDURE USE, 1 dose, Starting on Sun09/12/23 at 1429, Until Sun09/12/23 at 1429, Routine [facility] lactated ringers IV infusion 500 mL 09-12 20:15: 00 09-12 20:25 :00 No [id number] 500mL [facility] lactated ringers IV infusion 500 mL 09-12 20:15: 00 09-12 20:25 :00 No [id number] 500mL at 20 mL/hr, 500 mL, IV Infusion, ONCE, 1 dose, On Sun09/12/23 at 1415, Routine [facility] lactated ringers IV infusion 500 mL 09-12 20:15: 09-12 20:25 :00 No [id number] 500mL [facility] lactated ringers IV infusion 500 mL 09-12 20:15: 00 09-12 20:25 :00 No [id number] 500mL at 20 mL/hr, 500 mL, IV Infusion, ONCE, 1 dose, On Sun09/12/23 at 1415, Routine [facility] celecoxib 100 mg capsule 4-0 08-24 00:00: 00 Yes [id number] TAKE 1 CAPSULE BY MOUTH IN THE MORNING AND 1 IN THE EVENING WITH MEALS [facility] PROMETHAZIN E 12.5 mg tablet 4-0 08-24 00:00: 00 Yes [id number] TAKE 2 TABLETS BY MOUTH EVERY 6 HOURS NEEDED FOR NAUSEA AND VOMITING [facility] celecoxib 100 mg capsule 4-0 - 00:00: 00 Yes [id number] TAKE 1 CAPSULE BY MOUTH IN THE MORNING AND 1 IN THE EVENING WITH MEALS [facility] PROMETHAZIN E 12.5 mg tablet 4-0 - 00:00: 00 Yes [id number] TAKE 2 TABLETS BY MOUTH EVERY 6 HOURS NEEDED FOR NAUSEA AND VOMITING [facility] celecoxib 100 mg capsule 4-0 - 00:00: 00 Yes [id number] TAKE 1 CAPSULE BY MOUTH IN THE MORNING AND 1 IN THE EVENING WITH MEALS [facility] PROMETHAZIN E 12.5 mg tablet 4-0 08-24 00:00: 00 Yes [id number] TAKE 2 TABLETS BY MOUTH EVERY 6 HOURS NEEDED FOR NAUSEA AND VOMITING [facility] celecoxib 100 mg capsule 4-0 - 00:00: 00 Yes [id number] TAKE 1 CAPSULE BY MOUTH IN THE MORNING AND 1 IN THE EVENING WITH MEALS [facility] PROMETHAZIN E 12.5 mg tablet 4-0 - 00:00: 00 Yes [id number] TAKE 2 TABLETS BY MOUTH EVERY 6 HOURS NEEDED FOR NAUSEA AND VOMITING [facility] celecoxib 100 mg capsule 2024-0 - 00:00: 00 Yes [id number] TAKE 1 CAPSULE BY MOUTH IN THE MORNING AND 1 IN THE EVENING WITH MEALS [facility] PROMETHAZIN E 12.5 mg tablet 4-0 -12 00:00: 00 Yes [id number] TAKE 2 TABLETS BY MOUTH EVERY 6 HOURS NEEDED FOR NAUSEA AND VOMITING [facility] celecoxib 100 mg capsule 4-0 -12 00:00: 00 Yes [id number] TAKE 1 CAPSULE BY MOUTH IN THE MORNING AND 1 IN THE EVENING WITH MEALS [facility] PROMETHAZIN E 12.5 mg tablet 4-0 -12 00:00: 00 Yes [id number] TAKE 2 TABLETS BY MOUTH EVERY 6 HOURS NEEDED FOR NAUSEA AND VOMITING [facility] celecoxib 100 mg capsule 4-0 -12 00:00: 00 Yes [id number] TAKE 1 CAPSULE BY MOUTH IN THE MORNING AND 1 IN THE EVENING WITH MEALS [facility] PROMETHAZIN E 12.5 mg tablet 4-0 - 00:00: 00 Yes [id number] TAKE 2 TABLETS BY MOUTH EVERY 6 HOURS NEEDED FOR NAUSEA AND VOMITING [facility] celecoxib 100 mg capsule 2024-0 - 00:00: 00 Yes [id number] TAKE 1 CAPSULE BY MOUTH IN THE MORNING AND 1 IN THE EVENING WITH MEALS [facility] PROMETHAZIN E 12.5 mg tablet 4-0 - 00:00: 00 Yes [id number] TAKE 2 TABLETS BY MOUTH EVERY 6 HOURS NEEDED FOR NAUSEA AND VOMITING [facility] celecoxib 100 mg capsule 4-0 -12 00:00: 00 Yes [id number] TAKE 1 CAPSULE BY MOUTH IN THE MORNING AND 1 IN THE EVENING WITH MEALS [facility] PROMETHAZIN E 12.5 mg tablet 4-0 -12 00:00: 00 Yes [id number] TAKE 2 TABLETS BY MOUTH EVERY 6 HOURS NEEDED FOR NAUSEA AND VOMITING [facility] celecoxib 100 mg capsule 4-0 -12 00:00: 00 Yes [id number] TAKE 1 CAPSULE BY MOUTH IN THE MORNING AND 1 IN THE EVENING WITH MEALS [facility] PROMETHAZIN E 12.5 mg tablet 4-0 -12 00:00: 00 Yes [id number] TAKE 2 TABLETS BY MOUTH EVERY 6 HOURS NEEDED FOR NAUSEA AND VOMITING [facility] celecoxib 100 mg capsule 2024-0 -12 00:00: 00 Yes [id number] TAKE 1 CAPSULE BY MOUTH IN THE MORNING AND 1 IN THE EVENING WITH MEALS [facility] PROMETHAZIN E 12.5 mg tablet 2024-0 -12 00:00: 00 Yes [id number] TAKE 2 TABLETS BY MOUTH EVERY 6 HOURS NEEDED FOR NAUSEA AND VOMITING [facility] celecoxib 100 mg capsule 2024-0 -12 00:00: 00 Yes [id number] TAKE 1 CAPSULE BY MOUTH IN THE MORNING AND 1 IN THE EVENING WITH MEALS [facility] PROMETHAZIN E 12.5 mg tablet 2024-0 -12 00:00: 00 Yes [id number] TAKE 2 TABLETS BY MOUTH EVERY 6 HOURS NEEDED FOR NAUSEA AND VOMITING [facility] celecoxib 100 mg capsule 4-0 -12 00:00: 00 Yes [id number] TAKE 1 CAPSULE BY MOUTH IN THE MORNING AND 1 IN THE EVENING WITH MEALS [facility] PROMETHAZIN E 12.5 mg tablet 4-0 -12 00:00: 00 Yes [id number] TAKE 2 TABLETS BY MOUTH EVERY 6 HOURS NEEDED FOR NAUSEA AND VOMITING [facility] celecoxib 100 mg capsule 2024-0 -12 00:00: 00 Yes [id number] TAKE 1 CAPSULE BY MOUTH IN THE MORNING AND 1 IN THE EVENING WITH MEALS [facility] PROMETHAZIN E 12.5 mg tablet 4-0 -12 00:00: 00 Yes [id number] TAKE 2 TABLETS BY MOUTH EVERY 6 HOURS NEEDED FOR NAUSEA AND VOMITING [facility] celecoxib 100 mg capsule 2024-0 -12 00:00: 00 Yes [id number] TAKE 1 CAPSULE BY MOUTH IN THE MORNING AND 1 IN THE EVENING WITH MEALS [facility] PROMETHAZIN E 12.5 mg tablet 2024-0 -12 00:00: 00 Yes [id number] TAKE 2 TABLETS BY MOUTH EVERY 6 HOURS NEEDED FOR NAUSEA AND VOMITING [facility] celecoxib 100 mg capsule 2024-0 -12 00:00: 00 Yes [id number] TAKE 1 CAPSULE BY MOUTH IN THE MORNING AND 1 IN THE EVENING WITH MEALS [facility] PROMETHAZIN E 12.5 mg tablet 2024-0 -12 00:00: 00 Yes [id number] TAKE 2 TABLETS BY MOUTH EVERY 6 HOURS NEEDED FOR NAUSEA AND VOMITING [facility] celecoxib 100 mg capsule 4-0 08-24 00:00: 00 Yes [id number] TAKE 1 CAPSULE BY MOUTH IN THE MORNING AND 1 IN THE EVENING WITH MEALS [facility] PROMETHAZIN E 12.5 mg tablet 2023-0 08-24 00:00: 00 Yes [id number] TAKE 2 TABLETS BY MOUTH EVERY 6 HOURS NEEDED FOR NAUSEA AND VOMITING [facility] celecoxib 100 mg capsule 4-0 08-24 00:00: 00 Yes [id number] TAKE 1 CAPSULE BY MOUTH IN THE MORNING AND 1 IN THE EVENING WITH MEALS [facility] celecoxib 100 mg capsule 4-0 08-24 00:00: 00 Yes [id number] TAKE 1 CAPSULE BY MOUTH IN THE MORNING AND 1 IN THE EVENING WITH MEALS [facility] celecoxib 100 mg capsule 4-0 08-24 00:00: 00 Yes [id number] TAKE 1 CAPSULE BY MOUTH IN THE MORNING AND 1 IN THE EVENING WITH MEALS [facility] celecoxib 100 mg capsule 4-0 08-24 00:00: 00 Yes [id number] TAKE 1 CAPSULE BY MOUTH IN THE MORNING AND 1 IN THE EVENING WITH MEALS [facility] celecoxib 100 mg capsule 4-0 08-24 00:00: 00 Yes [id number] TAKE 1 CAPSULE BY MOUTH IN THE MORNING AND 1 IN THE EVENING WITH MEALS [facility] celecoxib 100 mg capsule 4-0 08-24 00:00: 00 Yes [id number] TAKE 1 CAPSULE BY MOUTH IN THE MORNING AND 1 IN THE EVENING WITH MEALS [facility] celecoxib 100 mg capsule 4-0 08-24 00:00: 00 Yes [id number] TAKE 1 CAPSULE BY MOUTH IN THE MORNING AND 1 IN THE EVENING WITH MEALS [facility] celecoxib 100 mg capsule 4-0 08-24 00:00: 00 Yes [id number] TAKE 1 CAPSULE BY MOUTH IN THE MORNING AND 1 IN THE EVENING WITH MEALS [facility] celecoxib 100 mg capsule 4-0 08-24 00:00: 00 Yes [id number] TAKE 1 CAPSULE BY MOUTH IN THE MORNING AND 1 IN THE EVENING WITH MEALS [facility] celecoxib 100 mg capsule 2024-0 08-24 00:00: 00 Yes [id number] TAKE 1 CAPSULE BY MOUTH IN THE MORNING AND 1 IN THE EVENING WITH MEALS [facility] celecoxib 100 mg capsule 4-0 12 00:00: 00 Yes [id number] TAKE 1 CAPSULE BY MOUTH IN THE MORNING AND 1 IN THE EVENING WITH MEALS [facility] celecoxib 100 mg capsule 4-0 08-24 00:00: 00 Yes [id number] TAKE 1 CAPSULE BY MOUTH IN THE MORNING AND 1 IN THE EVENING WITH MEALS [facility] celecoxib 100 mg capsule 4-0 08-24 00:00: 00 Yes [id number] TAKE 1 CAPSULE BY MOUTH IN THE MORNING AND 1 IN THE EVENING WITH MEALS [facility] PROMETHAZIN E 12.5 mg tablet 2023-0 08-24 00:00: 00 09-21 00:00 :00 No [id number] TAKE 2 TABLETS BY MOUTH EVERY 6 HOURS NEEDED FOR NAUSEA AND VOMITING [facility] PROMETHAZIN E 12.5 mg tablet 2023-0 08-24 00:00: 00 09-21 00:00 :00 No [id number] TAKE 2 TABLETS BY MOUTH EVERY 6 HOURS NEEDED FOR NAUSEA AND VOMITING [facility] PROMETHAZIN E 12.5 mg tablet 2022-1 10-10 00:00: 00 Yes [id number] TAKE 2 TABLETS BY MOUTH EVERY 6 HOURS NEEDED FOR NAUSEA AND VOMITING [facility] PROMETHAZIN E 12.5 mg tablet 2022-1 10-10 00:00: 00 Yes [id number] TAKE 2 TABLETS BY MOUTH EVERY 6 HOURS NEEDED FOR NAUSEA AND VOMITING [facility] tirzepatide (MOUNJARO) 10 mg/0.5 mL PnIj 1 09-24 00:00: 00 Yes [id number] 10mg inject 10 mg under the skin weekly. [facility] tirzepatide (MOUNJARO) 10 mg/0.5 mL PnIj 1 09-24 00:00: 00 Yes [id number] 10mg inject 10 mg under the skin weekly. [facility] tirzepatide (MOUNJARO) 10 mg/0.5 mL PnIj 2022-1 09-24 00:00: 00 Yes [id number] 10mg inject 10 mg under the skin weekly. [facility] tirzepatide (MOUNJARO) 10 mg/0.5 mL PnIj 2023-1 2-12 00:00: 00 Yes [id number] 10mg inject 10 mg under the skin weekly. [facility] tirzepatide (MOUNJARO) 10 mg/0.5 mL PnIj 2023-1 2-12 00:00: 00 Yes [id number] 10mg inject 10 mg under the skin weekly. [facility] tirzepatide (MOUNJARO) 10 mg/0.5 mL PnIj 2023-1 2-12 00:00: 00 Yes [id number] 10mg inject 10 mg under the skin weekly. [facility] tirzepatide (MOUNJARO) 10 mg/0.5 mL PnIj 2023-1 2-12 00:00: 00 Yes [id number] 10mg inject 10 mg under the skin weekly. [facility] tirzepatide (MOUNJARO) 10 mg/0.5 mL PnIj 2023-1 2-12 00:00: 00 Yes [id number] 10mg inject 10 mg under the skin weekly. [facility] tirzepatide (MOUNJARO) 10 mg/0.5 mL PnIj 2023-1 2-12 00:00: 00 Yes [id number] 10mg inject 10 mg under the skin weekly. [facility] tirzepatide (MOUNJARO) 10 mg/0.5 mL PnIj 2023-1 2-12 00:00: 00 Yes [id number] 10mg inject 10 mg under the skin weekly. [facility] tirzepatide (MOUNJARO) 10 mg/0.5 mL PnIj 2023-1 2-12 00:00: 00 Yes [id number] 10mg inject 10 mg under the skin weekly. [facility] tirzepatide (MOUNJARO) 10 mg/0.5 mL PnIj 2023-1 2-12 00:00: 00 Yes [id number] 10mg inject 10 mg under the skin weekly. [facility] tirzepatide (MOUNJARO) 10 mg/0.5 mL PnIj 2023-1 2-12 00:00: 00 Yes [id number] 10mg inject 10 mg under the skin weekly. [facility] tirzepatide (MOUNJARO) 10 mg/0.5 mL PnIj 2023-1 2-12 00:00: 00 Yes [id number] 10mg inject 10 mg under the skin weekly. [facility] tirzepatide (MOUNJARO) 10 mg/0.5 mL PnIj 2023-1 2-12 00:00: 00 Yes [id number] 10mg inject 10 mg under the skin weekly. [facility] tirzepatide (MOUNJARO) 10 mg/0.5 mL PnIj 2023-1 2-12 00:00: 00 Yes [id number] 10mg inject 10 mg under the skin weekly. [facility] tirzepatide (MOUNJARO) 10 mg/0.5 mL PnIj 2023-1 2-12 00:00: 00 Yes [id number] 10mg inject 10 mg under the skin weekly. [facility] tirzepatide (MOUNJARO) 10 mg/0.5 mL PnIj 2023-1 2-12 00:00: 00 Yes [id number] 10mg inject 10 mg under the skin weekly. [facility] tirzepatide (MOUNJARO) 10 mg/0.5 mL PnIj 2023-1 2-12 00:00: 00 Yes [id number] 10mg inject 10 mg under the skin weekly. [facility] tirzepatide (MOUNJARO) 10 mg/0.5 mL PnIj 2023-1 2-12 00:00: 00 Yes [id number] 10mg inject 10 mg under the skin weekly. [facility] tirzepatide (MOUNJARO) 10 mg/0.5 mL PnIj 2023-1 2-12 00:00: 00 Yes [id number] 10mg inject 10 mg under the skin weekly. [facility] tirzepatide (MOUNJARO) 10 mg/0.5 mL PnIj 2023-1 2-12 00:00: 00 Yes [id number] 10mg inject 10 mg under the skin weekly. [facility] tirzepatide (MOUNJARO) 10 mg/0.5 mL PnIj 2022-08 2-12 00:00: 00 Yes [id number] 10mg inject 10 mg under the skin weekly. [facility] tirzepatide (MOUNJARO) 10 mg/0.5 mL PnIj 2022-08 2-12 00:00: 00 Yes [id number] 10mg inject 10 mg under the skin weekly. [facility] tirzepatide (MOUNJARO) 10 mg/0.5 mL PnIj 2022-08 2-12 00:00: 00 10-14 00:00 :00 No [id number] 10mg inject 10 mg under the skin weekly. [facility] tirzepatide (MOUNJARO) 10 mg/0.5 mL PnIj 2022-08 2-12 00:00: 00 10-14 00:00 :00 No [id number] 10mg inject 10 mg under the skin weekly. [facility] tirzepatide (MOUNJARO) 10 mg/0.5 mL PnIj 2022-08 2-12 00:00: 00 10-14 00:00 :00 No [id number] 10mg inject 10 mg under the skin weekly. [facility] glyBURIDE 5 mg tablet 2022-08 00:00: 00 Yes [id number] TAKE 1 TABLET BY MOUTH TWICE DAILY . APPOINTMEN T REQUIRED FOR FUTURE REFILLS [facility] glyBURIDE 5 mg tablet 2022-0816 00:00: 00 Yes [id number] TAKE 1 TABLET BY MOUTH TWICE DAILY . APPOINTMEN T REQUIRED FOR FUTURE REFILLS [facility] glyBURIDE 5 mg tablet 2022-0816 00:00: 00 Yes [id number] TAKE 1 TABLET BY MOUTH TWICE DAILY . APPOINTMEN T REQUIRED FOR FUTURE REFILLS [facility] glyBURIDE 5 mg tablet 2022-0816 00:00: 00 Yes [id number] TAKE 1 TABLET BY MOUTH TWICE DAILY . APPOINTMEN T REQUIRED FOR FUTURE REFILLS [facility] glyBURIDE 5 mg tablet 2022-08 00:00: 00 Yes [id number] TAKE 1 TABLET BY MOUTH TWICE DAILY . APPOINTMEN T REQUIRED FOR FUTURE REFILLS [facility] glyBURIDE 5 mg tablet 2022-08 00:00: 00 Yes [id number] TAKE 1 TABLET BY MOUTH TWICE DAILY . APPOINTMEN T REQUIRED FOR FUTURE REFILLS [facility] glyBURIDE 5 mg tablet 2022-08 00:00: 00 Yes [id number] TAKE 1 TABLET BY MOUTH TWICE DAILY . APPOINTMEN T REQUIRED FOR FUTURE REFILLS [facility] glyBURIDE 5 mg tablet 2022-08 00:00: 00 Yes [id number] TAKE 1 TABLET BY MOUTH TWICE DAILY . APPOINTMEN T REQUIRED FOR FUTURE REFILLS [facility] glyBURIDE 5 mg tablet 2022-08 00:00: 00 Yes [id number] TAKE 1 TABLET BY MOUTH TWICE DAILY . APPOINTMEN T REQUIRED FOR FUTURE REFILLS [facility] glyBURIDE 5 mg tablet 2022-08 00:00: 00 Yes [id number] TAKE 1 TABLET BY MOUTH TWICE DAILY . APPOINTMEN T REQUIRED FOR FUTURE REFILLS [facility] glyBURIDE 5 mg tablet 2022-08 00:00: 00 Yes [id number] TAKE 1 TABLET BY MOUTH TWICE DAILY . APPOINTMEN T REQUIRED FOR FUTURE REFILLS [facility] glyBURIDE 5 mg tablet 2022-08 00:00: 00 Yes [id number] TAKE 1 TABLET BY MOUTH TWICE DAILY . APPOINTMEN T REQUIRED FOR FUTURE REFILLS [facility] glyBURIDE 5 mg tablet 2022-08 00:00: 00 Yes [id number] TAKE 1 TABLET BY MOUTH TWICE DAILY . APPOINTMEN T REQUIRED FOR FUTURE REFILLS [facility] glyBURIDE 5 mg tablet 2022-08-28 00:00: 00 Yes [id number] TAKE 1 TABLET BY MOUTH TWICE DAILY . APPOINTMEN T REQUIRED FOR FUTURE REFILLS [facility] glyBURIDE 5 mg tablet 2022-08-28 00:00: 00 Yes [id number] TAKE 1 TABLET BY MOUTH TWICE DAILY . APPOINTMEN T REQUIRED FOR FUTURE REFILLS [facility] glyBURIDE 5 mg tablet 2022-08 00:00: 00 Yes [id number] TAKE 1 TABLET BY MOUTH TWICE DAILY . APPOINTMEN T REQUIRED FOR FUTURE REFILLS [facility] glyBURIDE 5 mg tablet 2022-08 00:00: 00 Yes [id number] TAKE 1 TABLET BY MOUTH TWICE DAILY . APPOINTMEN T REQUIRED FOR FUTURE REFILLS [facility] glyBURIDE 5 mg tablet 2022-08 00:00: 00 Yes [id number] TAKE 1 TABLET BY MOUTH TWICE DAILY . APPOINTMEN T REQUIRED FOR FUTURE REFILLS [facility] glyBURIDE 5 mg tablet 2022-08 00:00: 00 Yes [id number] TAKE 1 TABLET BY MOUTH TWICE DAILY . APPOINTMEN T REQUIRED FOR FUTURE REFILLS [facility] glyBURIDE 5 mg tablet 2022-08 00:00: 00 Yes [id number] TAKE 1 TABLET BY MOUTH TWICE DAILY . APPOINTMEN T REQUIRED FOR FUTURE REFILLS [facility] glyBURIDE 5 mg tablet 2022-08 00:00: 00 Yes [id number] TAKE 1 TABLET BY MOUTH TWICE DAILY . APPOINTMEN T REQUIRED FOR FUTURE REFILLS [facility] glyBURIDE 5 mg tablet 2022-08 00:00: 00 Yes [id number] TAKE 1 TABLET BY MOUTH TWICE DAILY . APPOINTMEN T REQUIRED FOR FUTURE REFILLS [facility] glyBURIDE 5 mg tablet 2022-08 00:00: 00 Yes [id number] TAKE 1 TABLET BY MOUTH TWICE DAILY . APPOINTMEN T REQUIRED FOR FUTURE REFILLS [facility] glyBURIDE 5 mg tablet 2022-08 00:00: 00 Yes [id number] TAKE 1 TABLET BY MOUTH TWICE DAILY . APPOINTMEN T REQUIRED FOR FUTURE REFILLS [facility] glyBURIDE 5 mg tablet 2022-08 00:00: 00 Yes [id number] TAKE 1 TABLET BY MOUTH TWICE DAILY . APPOINTMEN T REQUIRED FOR FUTURE REFILLS [facility] glyBURIDE 5 mg tablet 2022-08 00:00: 00 10-14 00:00 :00 No [id number] TAKE 1 TABLET BY MOUTH TWICE DAILY . APPOINTMEN T REQUIRED FOR FUTURE REFILLS [facility] glyBURIDE 5 mg tablet 2022-08 00:00: 00 10-14 00:00 :00 No [id number] TAKE 1 TABLET BY MOUTH TWICE DAILY . APPOINTMEN T REQUIRED FOR FUTURE REFILLS [facility] glyBURIDE 5 mg tablet 2022-08 00:00: 00 10-14 00:00 :00 No [id number] TAKE 1 TABLET BY MOUTH TWICE DAILY . APPOINTMEN T REQUIRED FOR FUTURE REFILLS [facility] PROMETHAZIN E 12.5 mg tablet 2022-08 00:00: 00 Yes [id number] TAKE 2 TABLETS BY MOUTH EVERY 6 HOURS NEEDED FOR NAUSEA AND VOMITING [facility] PROMETHAZIN E 12.5 mg tablet 2022-08 00:00: 00 Yes [id number] TAKE 2 TABLETS BY MOUTH EVERY 6 HOURS NEEDED FOR NAUSEA AND VOMITING [facility] PROMETHAZIN E 12.5 mg tablet 2022-08 00:00: 00 Yes [id number] TAKE 2 TABLETS BY MOUTH EVERY 6 HOURS NEEDED FOR NAUSEA AND VOMITING [facility] PROMETHAZIN E 12.5 mg tablet 2022-08 00:00: 00 08-09 00:00 :00 No [id number] TAKE 2 TABLETS BY MOUTH EVERY 6 HOURS NEEDED FOR NAUSEA AND VOMITING [facility] GABAPENTIN 600 mg tablet 2022-08 00:00: 00 Yes [id number] 600mg TAKE 1 TABLET BY MOUTH IN THE MORNING AND 1 IN THE EVENING [facility] GABAPENTIN 600 mg tablet 2022-08 00:00: 00 Yes [id number] 600mg TAKE 1 TABLET BY MOUTH IN THE MORNING AND 1 IN THE EVENING [facility] GABAPENTIN 600 mg tablet 2022-08 00:00: 00 Yes [id number] 600mg TAKE 1 TABLET BY MOUTH IN THE MORNING AND 1 IN THE EVENING [facility] GABAPENTIN 600 mg tablet 2022-08 00:00: 00 Yes [id number] 600mg TAKE 1 TABLET BY MOUTH IN THE MORNING AND 1 IN THE EVENING [facility] GABAPENTIN 600 mg tablet 2022-08 00:00: 00 Yes [id number] 600mg TAKE 1 TABLET BY MOUTH IN THE MORNING AND 1 IN THE EVENING [facility] GABAPENTIN 600 mg tablet 2022-08 00:00: 00 Yes [id number] 600mg TAKE 1 TABLET BY MOUTH IN THE MORNING AND 1 IN THE EVENING [facility] GABAPENTIN 600 mg tablet 2022-08 00:00: 00 Yes [id number] 600mg TAKE 1 TABLET BY MOUTH IN THE MORNING AND 1 IN THE EVENING [facility] GABAPENTIN 600 mg tablet 2022-08 00:00: 00 Yes [id number] 600mg TAKE 1 TABLET BY MOUTH IN THE MORNING AND 1 IN THE EVENING [facility] GABAPENTIN 600 mg tablet 2022-08 00:00: 00 Yes [id number] 600mg TAKE 1 TABLET BY MOUTH IN THE MORNING AND 1 IN THE EVENING [facility] GABAPENTIN 600 mg tablet 2022-08 00:00: 00 Yes [id number] 600mg TAKE 1 TABLET BY MOUTH IN THE MORNING AND 1 IN THE EVENING [facility] GABAPENTIN 600 mg tablet 2022-08 00:00: 00 Yes [id number] 600mg TAKE 1 TABLET BY MOUTH IN THE MORNING AND 1 IN THE EVENING [facility] GABAPENTIN 600 mg tablet 2022-08 00:00: 00 Yes [id number] 600mg TAKE 1 TABLET BY MOUTH IN THE MORNING AND 1 IN THE EVENING [facility] GABAPENTIN 600 mg tablet 2022-08 00:00: 00 Yes [id number] 600mg TAKE 1 TABLET BY MOUTH IN THE MORNING AND 1 IN THE EVENING [facility] GABAPENTIN 600 mg tablet 2022-08 00:00: 00 Yes [id number] 600mg TAKE 1 TABLET BY MOUTH IN THE MORNING AND 1 IN THE EVENING [facility] GABAPENTIN 600 mg tablet 2022-08 00:00: 00 Yes [id number] 600mg TAKE 1 TABLET BY MOUTH IN THE MORNING AND 1 IN THE EVENING [facility] GABAPENTIN 600 mg tablet 2022-08 00:00: 00 Yes [id number] 600mg TAKE 1 TABLET BY MOUTH IN THE MORNING AND 1 IN THE EVENING [facility] GABAPENTIN 600 mg tablet 2022-08 00:00: 00 Yes [id number] 600mg TAKE 1 TABLET BY MOUTH IN THE MORNING AND 1 IN THE EVENING [facility] GABAPENTIN 600 mg tablet 2022-08 00:00: 00 Yes [id number] 600mg TAKE 1 TABLET BY MOUTH IN THE MORNING AND 1 IN THE EVENING [facility] GABAPENTIN 600 mg tablet 2022-08 00:00: 00 Yes [id number] 600mg TAKE 1 TABLET BY MOUTH IN THE MORNING AND 1 IN THE EVENING [facility] GABAPENTIN 600 mg tablet 2022-08 00:00: 00 Yes [id number] 600mg TAKE 1 TABLET BY MOUTH IN THE MORNING AND 1 IN THE EVENING [facility] GABAPENTIN 600 mg tablet 2022-08 00:00: 00 Yes [id number] 600mg TAKE 1 TABLET BY MOUTH IN THE MORNING AND 1 IN THE EVENING [facility] GABAPENTIN 600 mg tablet 2022-08 00:00: 00 Yes [id number] 600mg TAKE 1 TABLET BY MOUTH IN THE MORNING AND 1 IN THE EVENING [facility] GABAPENTIN 600 mg tablet 2022-08 00:00: 00 Yes [id number] 600mg TAKE 1 TABLET BY MOUTH IN THE MORNING AND 1 IN THE EVENING [facility] GABAPENTIN 600 mg tablet 2022-08 00:00: 00 Yes [id number] 600mg TAKE 1 TABLET BY MOUTH IN THE MORNING AND 1 IN THE EVENING [facility] GABAPENTIN 600 mg tablet 2022-08 00:00: 00 Yes [id number] 600mg TAKE 1 TABLET BY MOUTH IN THE MORNING AND 1 IN THE EVENING [facility] GABAPENTIN 600 mg tablet 2022-08 00:00: 00 Yes [id number] 600mg TAKE 1 TABLET BY MOUTH IN THE MORNING AND 1 IN THE EVENING [facility] GABAPENTIN 600 mg tablet 2022-08 00:00: 00 Yes [id number] 600mg TAKE 1 TABLET BY MOUTH IN THE MORNING AND 1 IN THE EVENING [facility] GABAPENTIN 600 mg tablet 2022-08 00:00: 00 Yes [id number] 600mg TAKE 1 TABLET BY MOUTH IN THE MORNING AND 1 IN THE EVENING [facility] GABAPENTIN 600 mg tablet 2022-08 00:00: 00 Yes [id number] 600mg TAKE 1 TABLET BY MOUTH IN THE MORNING AND 1 IN THE EVENING [facility] GABAPENTIN 600 mg tablet 2022-08 00:00: 00 Yes [id number] 600mg TAKE 1 TABLET BY MOUTH IN THE MORNING AND 1 IN THE EVENING [facility] GABAPENTIN 600 mg tablet 2022-08 00:00: 00 Yes [id number] 600mg TAKE 1 TABLET BY MOUTH IN THE MORNING AND 1 IN THE EVENING [facility] GABAPENTIN 600 mg tablet 2022-08 00:00: 00 Yes [id number] 600mg TAKE 1 TABLET BY MOUTH IN THE MORNING AND 1 IN THE EVENING [facility] GABAPENTIN 600 mg tablet 2022-08 00:00: 00 Yes [id number] 600mg TAKE 1 TABLET BY MOUTH IN THE MORNING AND 1 IN THE EVENING [facility] GABAPENTIN 600 mg tablet 2022-08 00:00: 00 Yes [id number] 600mg TAKE 1 TABLET BY MOUTH IN THE MORNING AND 1 IN THE EVENING [facility] GABAPENTIN 600 mg tablet 2022-08 00:00: 00 Yes [id number] 600mg TAKE 1 TABLET BY MOUTH IN THE MORNING AND 1 IN THE EVENING [facility] GABAPENTIN 600 mg tablet 2022-08 00:00: 00 Yes [id number] 600mg TAKE 1 TABLET BY MOUTH IN THE MORNING AND 1 IN THE EVENING [facility] GABAPENTIN 600 mg tablet 2022-08 00:00: 00 Yes [id number] 600mg TAKE 1 TABLET BY MOUTH IN THE MORNING AND 1 IN THE EVENING [facility] tirzepatide (MOUNJARO) 10 mg/0.5 mL PnIj 2022-08 00:00: 00 Yes [id number] 10mg inject 10 mg under the skin weekly. [facility] empaglifloz in (JARDIANCE) 25 mg Tab 2022-08 00:00: 00 Yes [id number] 25mg Take 1 tablet by mouth every morning. [facility] metFORMIN 1,000 mg tablet 2022-08 00:00: 00 Yes [id number] 1000mg Take 1 tablet by mouth in the morning and 1 tablet in the evening. Take with meals. [facility] pioglitazon e 30 mg tablet 2022-08 00:00: 00 Yes [id number] 30mg Take 1 tablet by mouth in the morning. [facility] tirzepatide (MOUNJARO) 10 mg/0.5 mL PnIj 2022-08 00:00: 00 Yes [id number] 10mg inject 10 mg under the skin weekly. [facility] empaglifloz in (JARDIANCE) 25 mg Tab 2022-08 00:00: 00 Yes [id number] 25mg Take 1 tablet by mouth every morning. [facility] metFORMIN 1,000 mg tablet 2022-08 00:00: 00 Yes [id number] 1000mg Take 1 tablet by mouth in the morning and 1 tablet in the evening. Take with meals. [facility] pioglitazon e 30 mg tablet 2022-08 00:00: 00 Yes [id number] 30mg Take 1 tablet by mouth in the morning. [facility] tirzepatide (MOUNJARO) 10 mg/0.5 mL PnIj 2022-08 00:00: 00 Yes [id number] 10mg inject 10 mg under the skin weekly. [facility] empaglifloz in (JARDIANCE) 25 mg Tab 2022-08 00:00: 00 Yes [id number] 25mg Take 1 tablet by mouth every morning. [facility] metFORMIN 1,000 mg tablet 2022-08 00:00: 00 Yes [id number] 1000mg Take 1 tablet by mouth in the morning and 1 tablet in the evening. Take with meals. [facility] pioglitazon e 30 mg tablet 2022-08 00:00: 00 Yes [id number] 30mg Take 1 tablet by mouth in the morning. [facility] tirzepatide (MOUNJARO) 10 mg/0.5 mL PnIj 2022-08 00:00: 00 Yes [id number] 10mg inject 10 mg under the skin weekly. [facility] empaglifloz in (JARDIANCE) 25 mg Tab 2022-08 00:00: 00 Yes [id number] 25mg Take 1 tablet by mouth every morning. [facility] metFORMIN 1,000 mg tablet 2022-08 00:00: 00 Yes [id number] 1000mg Take 1 tablet by mouth in the morning and 1 tablet in the evening. Take with meals. [facility] pioglitazon e 30 mg tablet 2022-08 00:00: 00 Yes [id number] 30mg Take 1 tablet by mouth in the morning. [facility] tirzepatide (MOUNJARO) 10 mg/0.5 mL PnIj 2022-08 00:00: 00 Yes [id number] 10mg inject 10 mg under the skin weekly. [facility] empaglifloz in (JARDIANCE) 25 mg Tab 2022-08 00:00: 00 Yes [id number] 25mg Take 1 tablet by mouth every morning. [facility] metFORMIN 1,000 mg tablet 2022-08 00:00: 00 Yes [id number] 1000mg Take 1 tablet by mouth in the morning and 1 tablet in the evening. Take with meals. [facility] pioglitazon e 30 mg tablet 2022-08 00:00: 00 Yes [id number] 30mg Take 1 tablet by mouth in the morning. [facility] tirzepatide (MOUNJARO) 10 mg/0.5 mL PnIj 2022-08 00:00: 00 Yes [id number] 10mg inject 10 mg under the skin weekly. [facility] empaglifloz in (JARDIANCE) 25 mg Tab 2022-08 00:00: 00 Yes [id number] 25mg Take 1 tablet by mouth every morning. [facility] metFORMIN 1,000 mg tablet 2022-08 0 00:00: 00 Yes [id number] 1000mg Take 1 tablet by mouth in the morning and 1 tablet in the evening. Take with meals. [facility] pioglitazon e 30 mg tablet 2022-08 00:00: 00 Yes [id number] 30mg Take 1 tablet by mouth in the morning. [facility] tirzepatide (MOUNJARO) 10 mg/0.5 mL PnIj 2022-08 00:00: 00 Yes [id number] 10mg inject 10 mg under the skin weekly. [facility] empaglifloz in (JARDIANCE) 25 mg Tab 2022-08 00:00: 00 Yes [id number] 25mg Take 1 tablet by mouth every morning. [facility] metFORMIN 1,000 mg tablet 2022-08 00:00: 00 Yes [id number] 1000mg Take 1 tablet by mouth in the morning and 1 tablet in the evening. Take with meals. [facility] pioglitazon e 30 mg tablet 2022-08 00:00: 00 Yes [id number] 30mg Take 1 tablet by mouth in the morning. [facility] tirzepatide (MOUNJARO) 10 mg/0.5 mL PnIj 2022-08 00:00: 00 Yes [id number] 10mg inject 10 mg under the skin weekly. [facility] empaglifloz in (JARDIANCE) 25 mg Tab 2022-08 00:00: 00 Yes [id number] 25mg Take 1 tablet by mouth every morning. [facility] metFORMIN 1,000 mg tablet 2022-08 00:00: 00 Yes [id number] 1000mg Take 1 tablet by mouth in the morning and 1 tablet in the evening. Take with meals. [facility] pioglitazon e 30 mg tablet 2022-08 00:00: 00 Yes [id number] 30mg Take 1 tablet by mouth in the morning. [facility] tirzepatide (MOUNJARO) 10 mg/0.5 mL PnIj 2022-08 0 00:00: 00 Yes [id number] 10mg inject 10 mg under the skin weekly. [facility] empaglifloz in (JARDIANCE) 25 mg Tab 2022-08 00:00: 00 Yes [id number] 25mg Take 1 tablet by mouth every morning. [facility] metFORMIN 1,000 mg tablet 2022-08 00:00: 00 Yes [id number] 1000mg Take 1 tablet by mouth in the morning and 1 tablet in the evening. Take with meals. [facility] pioglitazon e 30 mg tablet 2022-08 00:00: 00 Yes [id number] 30mg Take 1 tablet by mouth in the morning. [facility] empaglifloz in (JARDIANCE) 25 mg Tab 2022-08 00:00: 00 Yes [id number] 25mg Take 1 tablet by mouth every morning. [facility] metFORMIN 1,000 mg tablet 2022-08 00:00: 00 Yes [id number] 1000mg Take 1 tablet by mouth in the morning and 1 tablet in the evening. Take with meals. [facility] pioglitazon e 30 mg tablet 2022-08 00:00: 00 Yes [id number] 30mg Take 1 tablet by mouth in the morning. [facility] empaglifloz in (JARDIANCE) 25 mg Tab 2022-08 00:00: 00 Yes [id number] 25mg Take 1 tablet by mouth every morning. [facility] metFORMIN 1,000 mg tablet 2022-08 00:00: 00 Yes [id number] 1000mg Take 1 tablet by mouth in the morning and 1 tablet in the evening. Take with meals. [facility] pioglitazon e 30 mg tablet 2022-08 00:00: 00 Yes [id number] 30mg Take 1 tablet by mouth in the morning. [facility] empaglifloz in (JARDIANCE) 25 mg Tab 2022-08 00:00: 00 Yes [id number] 25mg Take 1 tablet by mouth every morning. [facility] metFORMIN 1,000 mg tablet 2022-08 030 00:00: 00 Yes [id number] 1000mg Take 1 tablet by mouth in the morning and 1 tablet in the evening. Take with meals. [facility] pioglitazon e 30 mg tablet 2022-08 0 00:00: 00 Yes [id number] 30mg Take 1 tablet by mouth in the morning. [facility] empaglifloz in (JARDIANCE) 25 mg Tab 2022-08 0 00:00: 00 Yes [id number] 25mg Take 1 tablet by mouth every morning. [facility] metFORMIN 1,000 mg tablet 2022-08 0 00:00: 00 Yes [id number] 1000mg Take 1 tablet by mouth in the morning and 1 tablet in the evening. Take with meals. [facility] pioglitazon e 30 mg tablet 2022-08 0 00:00: 00 Yes [id number] 30mg Take 1 tablet by mouth in the morning. [facility] empaglifloz in (JARDIANCE) 25 mg Tab 2022-08 0 00:00: 00 Yes [id number] 25mg Take 1 tablet by mouth every morning. [facility] metFORMIN 1,000 mg tablet 2022-08 0 00:00: 00 Yes [id number] 1000mg Take 1 tablet by mouth in the morning and 1 tablet in the evening. Take with meals. [facility] pioglitazon e 30 mg tablet 2022-08 0 00:00: 00 Yes [id number] 30mg Take 1 tablet by mouth in the morning. [facility] empaglifloz in (JARDIANCE) 25 mg Tab 2022-08 0 00:00: 00 Yes [id number] 25mg Take 1 tablet by mouth every morning. [facility] metFORMIN 1,000 mg tablet 2022-08 0 00:00: 00 Yes [id number] 1000mg Take 1 tablet by mouth in the morning and 1 tablet in the evening. Take with meals. [facility] pioglitazon e 30 mg tablet 2022-08 030 00:00: 00 Yes [id number] 30mg Take 1 tablet by mouth in the morning. [facility] empaglifloz in (JARDIANCE) 25 mg Tab 2022-08 030 00:00: 00 Yes [id number] 25mg Take 1 tablet by mouth every morning. [facility] metFORMIN 1,000 mg tablet 2022-08 030 00:00: 00 Yes [id number] 1000mg Take 1 tablet by mouth in the morning and 1 tablet in the evening. Take with meals. [facility] pioglitazon e 30 mg tablet 2022-08 030 00:00: 00 Yes [id number] 30mg Take 1 tablet by mouth in the morning. [facility] empaglifloz in (JARDIANCE) 25 mg Tab 2022-08 0 00:00: 00 Yes [id number] 25mg Take 1 tablet by mouth every morning. [facility] metFORMIN 1,000 mg tablet 2022-08 0 00:00: 00 Yes [id number] 1000mg Take 1 tablet by mouth in the morning and 1 tablet in the evening. Take with meals. [facility] pioglitazon e 30 mg tablet 2022-08 0 00:00: 00 Yes [id number] 30mg Take 1 tablet by mouth in the morning. [facility] empaglifloz in (JARDIANCE) 25 mg Tab 2022-08 030 00:00: 00 Yes [id number] 25mg Take 1 tablet by mouth every morning. [facility] metFORMIN 1,000 mg tablet 2022-08 030 00:00: 00 Yes [id number] 1000mg Take 1 tablet by mouth in the morning and 1 tablet in the evening. Take with meals. [facility] pioglitazon e 30 mg tablet 2022-08 030 00:00: 00 Yes [id number] 30mg Take 1 tablet by mouth in the morning. [facility] empaglifloz in (JARDIANCE) 25 mg Tab 2022-08 030 00:00: 00 Yes [id number] 25mg Take 1 tablet by mouth every morning. [facility] metFORMIN 1,000 mg tablet 2022-08 0 00:00: 00 Yes [id number] 1000mg Take 1 tablet by mouth in the morning and 1 tablet in the evening. Take with meals. [facility] pioglitazon e 30 mg tablet 2022-08 0 00:00: 00 Yes [id number] 30mg Take 1 tablet by mouth in the morning. [facility] empaglifloz in (JARDIANCE) 25 mg Tab 2022-08 0 00:00: 00 Yes [id number] 25mg Take 1 tablet by mouth every morning. [facility] metFORMIN 1,000 mg tablet 2022-08 0 00:00: 00 Yes [id number] 1000mg Take 1 tablet by mouth in the morning and 1 tablet in the evening. Take with meals. [facility] pioglitazon e 30 mg tablet 2022-08 0 00:00: 00 Yes [id number] 30mg Take 1 tablet by mouth in the morning. [facility] empaglifloz in (JARDIANCE) 25 mg Tab 2022-08 0 00:00: 00 Yes [id number] 25mg Take 1 tablet by mouth every morning. [facility] metFORMIN 1,000 mg tablet 2022-08 0 00:00: 00 Yes [id number] 1000mg Take 1 tablet by mouth in the morning and 1 tablet in the evening. Take with meals. [facility] pioglitazon e 30 mg tablet 2022-08 0 00:00: 00 Yes [id number] 30mg Take 1 tablet by mouth in the morning. [facility] empaglifloz in (JARDIANCE) 25 mg Tab 2022-08 0 00:00: 00 Yes [id number] 25mg Take 1 tablet by mouth every morning. [facility] metFORMIN 1,000 mg tablet 2022-08 0 00:00: 00 Yes [id number] 1000mg Take 1 tablet by mouth in the morning and 1 tablet in the evening. Take with meals. [facility] pioglitazon e 30 mg tablet 2022-08 0-30 00:00: 00 Yes [id number] 30mg Take 1 tablet by mouth in the morning. [facility] empaglifloz in (JARDIANCE) 25 mg Tab 2022-08 030 00:00: 00 Yes [id number] 25mg Take 1 tablet by mouth every morning. [facility] metFORMIN 1,000 mg tablet 2022-08 030 00:00: 00 Yes [id number] 1000mg Take 1 tablet by mouth in the morning and 1 tablet in the evening. Take with meals. [facility] pioglitazon e 30 mg tablet 2022-08 0 00:00: 00 Yes [id number] 30mg Take 1 tablet by mouth in the morning. [facility] empaglifloz in (JARDIANCE) 25 mg Tab 2022-08 0 00:00: 00 Yes [id number] 25mg Take 1 tablet by mouth every morning. [facility] metFORMIN 1,000 mg tablet 2022-08 0 00:00: 00 Yes [id number] 1000mg Take 1 tablet by mouth in the morning and 1 tablet in the evening. Take with meals. [facility] pioglitazon e 30 mg tablet 2022-08 0 00:00: 00 Yes [id number] 30mg Take 1 tablet by mouth in the morning. [facility] empaglifloz in (JARDIANCE) 25 mg Tab 2022-08 0 00:00: 00 Yes [id number] 25mg Take 1 tablet by mouth every morning. [facility] metFORMIN 1,000 mg tablet 2022-08 030 00:00: 00 Yes [id number] 1000mg Take 1 tablet by mouth in the morning and 1 tablet in the evening. Take with meals. [facility] pioglitazon e 30 mg tablet 2022-08 0 00:00: 00 Yes [id number] 30mg Take 1 tablet by mouth in the morning. [facility] empaglifloz in (JARDIANCE) 25 mg Tab 2022-08 030 00:00: 00 Yes [id number] 25mg Take 1 tablet by mouth every morning. [facility] metFORMIN 1,000 mg tablet 2022-08 030 00:00: 00 Yes [id number] 1000mg Take 1 tablet by mouth in the morning and 1 tablet in the evening. Take with meals. [facility] pioglitazon e 30 mg tablet 2022-08 030 00:00: 00 Yes [id number] 30mg Take 1 tablet by mouth in the morning. [facility] empaglifloz in (JARDIANCE) 25 mg Tab 2022-08 030 00:00: 00 Yes [id number] 25mg Take 1 tablet by mouth every morning. [facility] metFORMIN 1,000 mg tablet 2022-08 0 00:00: 00 Yes [id number] 1000mg Take 1 tablet by mouth in the morning and 1 tablet in the evening. Take with meals. [facility] pioglitazon e 30 mg tablet 2022-08 0 00:00: 00 Yes [id number] 30mg Take 1 tablet by mouth in the morning. [facility] empaglifloz in (JARDIANCE) 25 mg Tab 2022-08 0 00:00: 00 Yes [id number] 25mg Take 1 tablet by mouth every morning. [facility] metFORMIN 1,000 mg tablet 2022-08 0 00:00: 00 Yes [id number] 1000mg Take 1 tablet by mouth in the morning and 1 tablet in the evening. Take with meals. [facility] pioglitazon e 30 mg tablet 2022-08 030 00:00: 00 Yes [id number] 30mg Take 1 tablet by mouth in the morning. [facility] empaglifloz in (JARDIANCE) 25 mg Tab 2022-08 030 00:00: 00 Yes [id number] 25mg Take 1 tablet by mouth every morning. [facility] metFORMIN 1,000 mg tablet 2022-08 0-30 00:00: 00 Yes [id number] 1000mg Take 1 tablet by mouth in the morning and 1 tablet in the evening. Take with meals. [facility] pioglitazon e 30 mg tablet 2022-08 0-30 00:00: 00 Yes [id number] 30mg Take 1 tablet by mouth in the morning. [facility] empaglifloz in (JARDIANCE) 25 mg Tab 2022-08 030 00:00: 00 Yes [id number] 25mg Take 1 tablet by mouth every morning. [facility] metFORMIN 1,000 mg tablet 2022-08 0 00:00: 00 Yes [id number] 1000mg Take 1 tablet by mouth in the morning and 1 tablet in the evening. Take with meals. [facility] pioglitazon e 30 mg tablet 2022-08 0 00:00: 00 Yes [id number] 30mg Take 1 tablet by mouth in the morning. [facility] empaglifloz in (JARDIANCE) 25 mg Tab 2022-08 0 00:00: 00 Yes [id number] 25mg Take 1 tablet by mouth every morning. [facility] metFORMIN 1,000 mg tablet 2022-08 0 00:00: 00 Yes [id number] 1000mg Take 1 tablet by mouth in the morning and 1 tablet in the evening. Take with meals. [facility] pioglitazon e 30 mg tablet 2022-08 0 00:00: 00 Yes [id number] 30mg Take 1 tablet by mouth in the morning. [facility] empaglifloz in (JARDIANCE) 25 mg Tab 2022-08 0 00:00: 00 Yes [id number] 25mg Take 1 tablet by mouth every morning. [facility] metFORMIN 1,000 mg tablet 2022-08 0 00:00: 00 Yes [id number] 1000mg Take 1 tablet by mouth in the morning and 1 tablet in the evening. Take with meals. [facility] pioglitazon e 30 mg tablet 2022-08 0 00:00: 00 Yes [id number] 30mg Take 1 tablet by mouth in the morning. [facility] empaglifloz in (JARDIANCE) 25 mg Tab 2022-08 0 00:00: 00 Yes [id number] 25mg Take 1 tablet by mouth every morning. [facility] metFORMIN 1,000 mg tablet 2022- 0-30 00:00: 00 Yes [id number] 1000mg Take 1 tablet by mouth in the morning and 1 tablet in the evening. Take with meals. [facility] pioglitazon e 30 mg tablet 2022- 0-30 00:00: 00 Yes [id number] 30mg Take 1 tablet by mouth in the morning. [facility] empaglifloz in (JARDIANCE) 25 mg Tab 2022- 0-30 00:00: 00 10-14 00:00 :00 No [id number] 25mg Take 1 tablet by mouth every morning. [facility] metFORMIN 1,000 mg tablet 2022- 0-30 00:00: 00 10-14 00:00 :00 No [id number] 1000mg Take 1 tablet by mouth in the morning and 1 tablet in the evening. Take with meals. [facility] pioglitazon e 30 mg tablet 2022- 0-30 00:00: 00 10-14 00:00 :00 No [id number] 30mg Take 1 tablet by mouth in the morning. [facility] empaglifloz in (JARDIANCE) 25 mg Tab 2022- 0-30 00:00: 00 10-14 00:00 :00 No [id number] 25mg Take 1 tablet by mouth every morning. [facility] metFORMIN 1,000 mg tablet 2022- 0-30 00:00: 00 10-14 00:00 :00 No [id number] 1000mg Take 1 tablet by mouth in the morning and 1 tablet in the evening. Take with meals. [facility] pioglitazon e 30 mg tablet 2022- 0-30 00:00: 00 10-14 00:00 :00 No [id number] 30mg Take 1 tablet by mouth in the morning. [facility] empaglifloz in (JARDIANCE) 25 mg Tab 2022- 0-30 00:00: 00 10-14 00:00 :00 No [id number] 25mg Take 1 tablet by mouth every morning. [facility] metFORMIN 1,000 mg tablet 2022-08 0-30 00:00: 00 10-14 00:00 :00 No [id number] 1000mg Take 1 tablet by mouth in the morning and 1 tablet in the evening. Take with meals. [facility] pioglitazon e 30 mg tablet 2022-08 0-30 00:00: 00 10-14 00:00 :00 No [id number] 30mg Take 1 tablet by mouth in the morning. [facility] tirzepatide (MOUNJARO) 10 mg/0.5 mL PnIj 2022-08 0-30 00:00: 00 07-20 00:00 :00 No [id number] 10mg inject 10 mg under the skin weekly. [facility] meclizine 25 mg tablet 2022-08 0-25 00:00: 00 Yes [id number] TAKE 1 TABLET BY MOUTH EVERY 8 HOURS NEEDED [facility] atorvastati n 20 mg tablet 2022-08 0-25 00:00: 00 Yes [id number] 20mg Take 1 tablet by mouth at bedtime. [facility] meclizine 25 mg tablet 2022-08 0-25 00:00: 00 Yes [id number] TAKE 1 TABLET BY MOUTH EVERY 8 HOURS NEEDED [facility] atorvastati n 20 mg tablet 2022-08 0-25 00:00: 00 Yes [id number] 20mg Take 1 tablet by mouth at bedtime. [facility] meclizine 25 mg tablet 2022-08 0-25 00:00: 00 Yes [id number] TAKE 1 TABLET BY MOUTH EVERY 8 HOURS NEEDED [facility] atorvastati n 20 mg tablet 2022-08 0-25 00:00: 00 Yes [id number] 20mg Take 1 tablet by mouth at bedtime. [facility] meclizine 25 mg tablet 2022-08 0-25 00:00: 00 Yes [id number] TAKE 1 TABLET BY MOUTH EVERY 8 HOURS NEEDED [facility] atorvastati n 20 mg tablet 2022-08 0-25 00:00: 00 Yes [id number] 20mg Take 1 tablet by mouth at bedtime. [facility] meclizine 25 mg tablet 2022-08 0-25 00:00: 00 Yes [id number] TAKE 1 TABLET BY MOUTH EVERY 8 HOURS NEEDED [facility] atorvastati n 20 mg tablet 2022-08 0-25 00:00: 00 Yes [id number] 20mg Take 1 tablet by mouth at bedtime. [facility] meclizine 25 mg tablet 2022-08 0-25 00:00: 00 Yes [id number] TAKE 1 TABLET BY MOUTH EVERY 8 HOURS NEEDED [facility] atorvastati n 20 mg tablet 2022-08 0- 00:00: 00 Yes [id number] 20mg Take 1 tablet by mouth at bedtime. [facility] meclizine 25 mg tablet 2022-08 0- 00:00: 00 Yes [id number] TAKE 1 TABLET BY MOUTH EVERY 8 HOURS NEEDED [facility] atorvastati n 20 mg tablet 2022-08 0 00:00: 00 Yes [id number] 20mg Take 1 tablet by mouth at bedtime. [facility] meclizine 25 mg tablet 2022-08 0 00:00: 00 Yes [id number] TAKE 1 TABLET BY MOUTH EVERY 8 HOURS NEEDED [facility] atorvastati n 20 mg tablet 2022-08 0 00:00: 00 Yes [id number] 20mg Take 1 tablet by mouth at bedtime. [facility] meclizine 25 mg tablet 2022-08 0-25 00:00: 00 Yes [id number] TAKE 1 TABLET BY MOUTH EVERY 8 HOURS NEEDED [facility] atorvastati n 20 mg tablet 2022-08 0-25 00:00: 00 Yes [id number] 20mg Take 1 tablet by mouth at bedtime. [facility] meclizine 25 mg tablet 2022-08 0-25 00:00: 00 Yes [id number] TAKE 1 TABLET BY MOUTH EVERY 8 HOURS NEEDED [facility] atorvastati n 20 mg tablet 2022- 0-25 00:00: 00 Yes [id number] 20mg Take 1 tablet by mouth at bedtime. [facility] meclizine 25 mg tablet 2022-08 0-25 00:00: 00 Yes [id number] TAKE 1 TABLET BY MOUTH EVERY 8 HOURS NEEDED [facility] atorvastati n 20 mg tablet 2022-08 0-25 00:00: 00 Yes [id number] 20mg Take 1 tablet by mouth at bedtime. [facility] meclizine 25 mg tablet 2022-08 0-25 00:00: 00 Yes [id number] TAKE 1 TABLET BY MOUTH EVERY 8 HOURS NEEDED [facility] atorvastati n 20 mg tablet 2022-08 0-25 00:00: 00 Yes [id number] 20mg Take 1 tablet by mouth at bedtime. [facility] meclizine 25 mg tablet 2022-08 0- 00:00: 00 Yes [id number] TAKE 1 TABLET BY MOUTH EVERY 8 HOURS NEEDED [facility] atorvastati n 20 mg tablet 2022-08 0 00:00: 00 Yes [id number] 20mg Take 1 tablet by mouth at bedtime. [facility] meclizine 25 mg tablet 2022-08 0 00:00: 00 Yes [id number] TAKE 1 TABLET BY MOUTH EVERY 8 HOURS NEEDED [facility] atorvastati n 20 mg tablet 2022-08 025 00:00: 00 Yes [id number] 20mg Take 1 tablet by mouth at bedtime. [facility] meclizine 25 mg tablet 2022-08 0-25 00:00: 00 Yes [id number] TAKE 1 TABLET BY MOUTH EVERY 8 HOURS NEEDED [facility] atorvastati n 20 mg tablet 2022-08 0-25 00:00: 00 Yes [id number] 20mg Take 1 tablet by mouth at bedtime. [facility] meclizine 25 mg tablet 2022-08 0-25 00:00: 00 Yes [id number] TAKE 1 TABLET BY MOUTH EVERY 8 HOURS NEEDED [facility] atorvastati n 20 mg tablet 2022-08 0-25 00:00: 00 Yes [id number] 20mg Take 1 tablet by mouth at bedtime. [facility] meclizine 25 mg tablet 2022-08 0-25 00:00: 00 Yes [id number] TAKE 1 TABLET BY MOUTH EVERY 8 HOURS NEEDED [facility] atorvastati n 20 mg tablet 2022-08 0-25 00:00: 00 Yes [id number] 20mg Take 1 tablet by mouth at bedtime. [facility] meclizine 25 mg tablet 2022-08 0- 00:00: 00 Yes [id number] TAKE 1 TABLET BY MOUTH EVERY 8 HOURS NEEDED [facility] atorvastati n 20 mg tablet 2022-08 0- 00:00: 00 Yes [id number] 20mg Take 1 tablet by mouth at bedtime. [facility] meclizine 25 mg tablet 2022-08 0 00:00: 00 Yes [id number] TAKE 1 TABLET BY MOUTH EVERY 8 HOURS NEEDED [facility] atorvastati n 20 mg tablet 2022-08 0 00:00: 00 Yes [id number] 20mg Take 1 tablet by mouth at bedtime. [facility] meclizine 25 mg tablet 2022-08 0 00:00: 00 Yes [id number] TAKE 1 TABLET BY MOUTH EVERY 8 HOURS NEEDED [facility] atorvastati n 20 mg tablet 2022-08 0 00:00: 00 Yes [id number] 20mg Take 1 tablet by mouth at bedtime. [facility] meclizine 25 mg tablet 2022-08 0 00:00: 00 Yes [id number] TAKE 1 TABLET BY MOUTH EVERY 8 HOURS NEEDED [facility] atorvastati n 20 mg tablet 2022-08 0-25 00:00: 00 Yes [id number] 20mg Take 1 tablet by mouth at bedtime. [facility] meclizine 25 mg tablet 2022-08 0- 00:00: 00 Yes [id number] TAKE 1 TABLET BY MOUTH EVERY 8 HOURS NEEDED [facility] atorvastati n 20 mg tablet 2022-08 0-25 00:00: 00 Yes [id number] 20mg Take 1 tablet by mouth at bedtime. [facility] meclizine 25 mg tablet 2022- 0-25 00:00: 00 Yes [id number] TAKE 1 TABLET BY MOUTH EVERY 8 HOURS NEEDED [facility] atorvastati n 20 mg tablet 2022-08 0-25 00:00: 00 Yes [id number] 20mg Take 1 tablet by mouth at bedtime. [facility] meclizine 25 mg tablet 2022-08 0-25 00:00: 00 Yes [id number] TAKE 1 TABLET BY MOUTH EVERY 8 HOURS NEEDED [facility] atorvastati n 20 mg tablet 2022-08 0-25 00:00: 00 Yes [id number] 20mg Take 1 tablet by mouth at bedtime. [facility] meclizine 25 mg tablet 2022-08 0-25 00:00: 00 Yes [id number] TAKE 1 TABLET BY MOUTH EVERY 8 HOURS NEEDED [facility] atorvastati n 20 mg tablet 2022-08 0-25 00:00: 00 Yes [id number] 20mg Take 1 tablet by mouth at bedtime. [facility] meclizine 25 mg tablet 2022-08 0-25 00:00: 00 Yes [id number] TAKE 1 TABLET BY MOUTH EVERY 8 HOURS NEEDED [facility] atorvastati n 20 mg tablet 2022-08 0-25 00:00: 00 Yes [id number] 20mg Take 1 tablet by mouth at bedtime. [facility] meclizine 25 mg tablet 2022-08 0-25 00:00: 00 Yes [id number] TAKE 1 TABLET BY MOUTH EVERY 8 HOURS NEEDED [facility] atorvastati n 20 mg tablet 2022-08 0-25 00:00: 00 Yes [id number] 20mg Take 1 tablet by mouth at bedtime. [facility] meclizine 25 mg tablet 2022- 0-25 00:00: 00 Yes [id number] TAKE 1 TABLET BY MOUTH EVERY 8 HOURS NEEDED [facility] atorvastati n 20 mg tablet 2022-08 0-25 00:00: 00 Yes [id number] 20mg Take 1 tablet by mouth at bedtime. [facility] meclizine 25 mg tablet 2022-08 0-25 00:00: 00 Yes [id number] TAKE 1 TABLET BY MOUTH EVERY 8 HOURS NEEDED [facility] atorvastati n 20 mg tablet 2022-08 0-25 00:00: 00 Yes [id number] 20mg Take 1 tablet by mouth at bedtime. [facility] meclizine 25 mg tablet 2022-08 0-25 00:00: 00 Yes [id number] TAKE 1 TABLET BY MOUTH EVERY 8 HOURS NEEDED [facility] atorvastati n 20 mg tablet 2022-08 0- 00:00: 00 Yes [id number] 20mg Take 1 tablet by mouth at bedtime. [facility] meclizine 25 mg tablet 2022-08 0- 00:00: 00 Yes [id number] TAKE 1 TABLET BY MOUTH EVERY 8 HOURS NEEDED [facility] atorvastati n 20 mg tablet 2022-08 0 00:00: 00 Yes [id number] 20mg Take 1 tablet by mouth at bedtime. [facility] meclizine 25 mg tablet 2022-08 0 00:00: 00 Yes [id number] TAKE 1 TABLET BY MOUTH EVERY 8 HOURS NEEDED [facility] atorvastati n 20 mg tablet 2022-08 0 00:00: 00 Yes [id number] 20mg Take 1 tablet by mouth at bedtime. [facility] atorvastati n 20 mg tablet 2022-08 0-25 00:00: 00 Yes [id number] 20mg Take 1 tablet by mouth at bedtime. [facility] atorvastati n 20 mg tablet 2022-08 0-25 00:00: 00 Yes [id number] 20mg Take 1 tablet by mouth at bedtime. [facility] atorvastati n 20 mg tablet 2022-08 0-25 00:00: 00 Yes [id number] 20mg Take 1 tablet by mouth at bedtime. [facility] atorvastati n 20 mg tablet 2022-08 0-25 00:00: 00 Yes [id number] 20mg Take 1 tablet by mouth at bedtime. [facility] atorvastati n 20 mg tablet 2022-08 0-25 00:00: 00 Yes [id number] 20mg Take 1 tablet by mouth at bedtime. [facility] atorvastati n 20 mg tablet 2022-08 0-25 00:00: 00 Yes [id number] 20mg Take 1 tablet by mouth at bedtime. [facility] atorvastati n 20 mg tablet 2022-08 0-25 00:00: 00 Yes [id number] 20mg Take 1 tablet by mouth at bedtime. [facility] atorvastati n 20 mg tablet 2022-08 0-25 00:00: 00 Yes [id number] 20mg Take 1 tablet by mouth at bedtime. [facility] atorvastati n 20 mg tablet 2022-08 0-25 00:00: 00 Yes [id number] 20mg Take 1 tablet by mouth at bedtime. [facility] atorvastati n 20 mg tablet 2022-08 0-25 00:00: 00 Yes [id number] 20mg Take 1 tablet by mouth at bedtime. [facility] atorvastati n 20 mg tablet 2022-08 0-25 00:00: 00 Yes [id number] 20mg Take 1 tablet by mouth at bedtime. [facility] atorvastati n 20 mg tablet 2022-08 0-25 00:00: 00 Yes [id number] 20mg Take 1 tablet by mouth at bedtime. [facility] meclizine 25 mg tablet 2022-08 0-25 00:00: 00 09-21 00:00 :00 No [id number] TAKE 1 TABLET BY MOUTH EVERY 8 HOURS NEEDED [facility] meclizine 25 mg tablet 2022-08 0-25 00:00: 00 09-21 00:00 :00 No [id number] TAKE 1 TABLET BY MOUTH EVERY 8 HOURS NEEDED [facility] PROMETHAZIN E 12.5 mg tablet 2023-1 0-20 00:00: 00 Yes [id number] TAKE 2 TABLETS BY MOUTH EVERY 6 HOURS NEEDED FOR NAUSEA AND VOMITING [facility] PROMETHAZIN E 12.5 mg tablet 2022-1 0-20 00:00: 00 Yes [id number] TAKE 2 TABLETS BY MOUTH EVERY 6 HOURS NEEDED FOR NAUSEA AND VOMITING [facility] PROMETHAZIN E 12.5 mg tablet 2022-1 0-20 00:00: 00 Yes [id number] TAKE 2 TABLETS BY MOUTH EVERY 6 HOURS NEEDED FOR NAUSEA AND VOMITING [facility] PROMETHAZIN E 12.5 mg tablet 2022-1 0-20 00:00: 00 Yes [id number] TAKE 2 TABLETS BY MOUTH EVERY 6 HOURS NEEDED FOR NAUSEA AND VOMITING [facility] PROMETHAZIN E 12.5 mg tablet 2022-1 0-20 00:00: 00 Yes [id number] TAKE 2 TABLETS BY MOUTH EVERY 6 HOURS NEEDED FOR NAUSEA AND VOMITING [facility] PROMETHAZIN E 12.5 mg tablet 2022-1 0-20 00:00: 00 Yes [id number] TAKE 2 TABLETS BY MOUTH EVERY 6 HOURS NEEDED FOR NAUSEA AND VOMITING [facility] PROMETHAZIN E 12.5 mg tablet 2022-1 0-20 00:00: 00 Yes [id number] TAKE 2 TABLETS BY MOUTH EVERY 6 HOURS NEEDED FOR NAUSEA AND VOMITING [facility] PROMETHAZIN E 12.5 mg tablet 2022-1 0-20 00:00: 00 Yes [id number] TAKE 2 TABLETS BY MOUTH EVERY 6 HOURS NEEDED FOR NAUSEA AND VOMITING [facility] PROMETHAZIN E 12.5 mg tablet 2022-1 0-20 00:00: 00 Yes [id number] TAKE 2 TABLETS BY MOUTH EVERY 6 HOURS NEEDED FOR NAUSEA AND VOMITING [facility] PROMETHAZIN E 12.5 mg tablet 2022-1 0-20 00:00: 00 06-26 00:00 :00 No [id number] TAKE 2 TABLETS BY MOUTH EVERY 6 HOURS NEEDED FOR NAUSEA AND VOMITING [facility] PROMETHAZIN E 12.5 mg tablet 2022- 0-20 00:00: 00 06-26 00:00 :00 No [id number] TAKE 2 TABLETS BY MOUTH EVERY 6 HOURS NEEDED FOR NAUSEA AND VOMITING [facility] PROMETHAZIN E 12.5 mg tablet 2022-08 0-20 00:00: 00 06-26 00:00 :00 No [id number] TAKE 2 TABLETS BY MOUTH EVERY 6 HOURS NEEDED FOR NAUSEA AND VOMITING [facility] lidocaine 1% (PF) (XYLOCAINE) injection 10 mL 05-11 19:45: 00 05-11 18:46 :00 No [id number] 10mL [facility] bupivacaine (preserv free) (SENSORCAIN E MPF) 0.25 % (2.5 mg/mL) injection 4 mL 05-11 19:45: 00 05-11 18:46 :00 No [id number] 4mL [facility] bupivacaine (preserv free) (SENSORCAIN E MPF) 0.25 % (2.5 mg/mL) injection 4 mL 05-11 19:45: 00 05-11 18:46 :00 No [id number] 4mL 4 mL, Infiltrati on, ONCE, 1 dose, On Sun05/11/23 at 1445, Routine [facility] lidocaine 1% (PF) (XYLOCAINE) injection 10 mL 05-11 19:45: 00 05-11 18:46 :00 No [id number] 10mL 10 mL, Infiltrati on, ONCE, 1 dose, On Sun05/11/23 at 1445, Routine [facility] lidocaine 1% (PF) (XYLOCAINE) injection 10 mL 05-11 19:45: 00 05-11 18:46 :00 No [id number] 10mL [facility] bupivacaine (preserv free) (SENSORCAIN E MPF) 0.25 % (2.5 mg/mL) injection 4 mL 05-11 19:45: 00 05-11 18:46 :00 No [id number] 4mL [facility] bupivacaine (preserv free) (SENSORCAIN E MPF) 0.25 % (2.5 mg/mL) injection 4 mL 05-11 19:45: 00 05-11 18:46 :00 No [id number] 4mL 4 mL, Infiltrati on, ONCE, 1 dose, On Sun05/11/23 at 1445, Routine [facility] lidocaine 1% (PF) (XYLOCAINE) injection 10 mL 05-11 19:45: 00 05-11 18:46 :00 No [id number] 10mL 10 mL, Infiltrati on, ONCE, 1 dose, On Sun05/11/23 at 1445, Routine [facility] triamcinolo ne acetonide (KENALOG) injection 40 mg 05-11 19:30: 00 05-11 18:47 :00 No [id number] 40mg [facility] triamcinolo ne acetonide (KENALOG) injection 40 mg 05-11 19:30: 00 05-11 18:47 :00 No [id number] 40mg 40 mg, Infiltrati on, ONCE, 1 dose, On Sun05/11/23 at 1430, Routine [facility] triamcinolo ne acetonide (KENALOG) injection 40 mg 05-11 19:30: 00 05-11 18:47 :00 No [id number] 40mg [facility] triamcinolo ne acetonide (KENALOG) injection 40 mg 05-11 19:30: 00 05-11 18:47 :00 No [id number] 40mg 40 mg, Infiltrati on, ONCE, 1 dose, On Sun05/11/23 at 1430, Routine [facility] FENTanyl PF (SUBLIMAZE (PF)) injection 05-11 18:56: 34 05-11 18:56 :34 No Slow IV Push, TITRATE - FOR PROCEDURE USE, 1 dose, Starting on Sun05/11/23 at 1356, Until Sun05/11/23 at 1356, Routine [facility] FENTanyl PF (SUBLIMAZE (PF)) injection 05-11 18:56: 34 05-11 18:56 :34 No Slow IV Push, TITRATE - FOR PROCEDURE USE, 1 dose, Starting on Sun05/11/23 at 1356, Until Sun05/11/23 at 1356, Routine [facility] FENTanyl PF (SUBLIMAZE (PF)) injection 05-11 18:45: 00 05-11 18:45 :00 No Slow IV Push, TITRATE - FOR PROCEDURE USE, 1 dose, Starting on Sun05/11/23 at 1345, Until Sun05/11/23 at 1345, Routine [facility] FENTanyl PF (SUBLIMAZE (PF)) injection 05-11 18:45: 00 05-11 18:45 :00 No Slow IV Push, TITRATE - FOR PROCEDURE USE, 1 dose, Starting on Sun05/11/23 at 1345, Until Sun05/11/23 at 1345, Routine [facility] FENTanyl PF (SUBLIMAZE (PF)) injection 05-11 18:43: 00 05-11 18:43 :00 No Slow IV Push, TITRATE - FOR PROCEDURE USE, 1 dose, Starting on Sun05/11/23 at 1343, Until Sun05/11/23 at 1343, Routine [facility] FENTanyl PF (SUBLIMAZE (PF)) injection 05-11 18:43: 00 05-11 18:43 :00 No Slow IV Push, TITRATE - FOR PROCEDURE USE, 1 dose, Starting on Sun05/11/23 at 1343, Until Sun05/11/23 at 1343, Routine [facility] midazolam (VERSED) injection 05-11 18:38: 00 05-11 18:38 :00 No IV Push, TITRATE - FOR PROCEDURE USE, 1 dose, Starting on Sun05/11/23 at 1338, Until Sun05/11/23 at 1338, Routine [facility] midazolam (VERSED) injection 05-11 18:38: 00 05-11 18:38 :00 No IV Push, TITRATE - FOR PROCEDURE USE, 1 dose, Starting on Sun05/11/23 at 1338, Until Sun05/11/23 at 1338, Routine [facility] ondansetron (ZOFRAN (PF)) injection 05-11 18:37: 00 05-11 18:37 :00 No TITRATE - FOR PROCEDURE USE, 1 dose, Starting on Sun05/11/23 at 1337, Until Sun05/11/23 at 1337, Routine [facility] ondansetron (ZOFRAN (PF)) injection 05-11 18:37: 00 05-11 18:37 :00 No TITRATE - FOR PROCEDURE USE, 1 dose, Starting on Sun05/11/23 at 1337, Until Sun05/11/23 at 1337, Routine [facility] lactated ringers IV infusion 500 mL 05-11 18:15: 00 05-11 18:15 :00 No [id number] 500mL [facility] lactated ringers IV infusion 500 mL 05-11 18:15: 00 05-11 18:15 :00 No [id number] 500mL at 20 mL/hr, 500 mL, IV Infusion, ONCE, 1 dose, On Sun05/11/23 at 1315, Routine [facility] lactated ringers IV infusion 500 mL 05-11 18:15: 00 05-11 18:15 :00 No [id number] 500mL [facility] lactated ringers IV infusion 500 mL 05-11 18:15: 00 05-11 18:15 :00 No [id number] 500mL at 20 mL/hr, 500 mL, IV Infusion, ONCE, 1 dose, On Sun05/11/23 at 1315, Routine [facility] fluconazole 200 mg tablet 05-08 00:00: 00 Yes [id number] 200mg Take 1 tablet by mouth every 3 (three) days. [facility] fluconazole 200 mg tablet 05-08 00:00: 00 Yes [id number] 200mg Take 1 tablet by mouth every 3 (three) days. [facility] fluconazole 200 mg tablet 05-08 00:00: 00 Yes [id number] 200mg Take 1 tablet by mouth every 3 (three) days. [facility] fluconazole 200 mg tablet 0 05-08 00:00: 00 Yes [id number] 200mg Take 1 tablet by mouth every 3 (three) days. [facility] fluconazole 200 mg tablet 0 05-08 00:00: 00 Yes [id number] 200mg Take 1 tablet by mouth every 3 (three) days. [facility] fluconazole 200 mg tablet 0 05-08 00:00: 00 Yes [id number] 200mg Take 1 tablet by mouth every 3 (three) days. [facility] fluconazole 200 mg tablet 0 05-08 00:00: 00 Yes [id number] 200mg Take 1 tablet by mouth every 3 (three) days. [facility] fluconazole 200 mg tablet 0 05-08 00:00: 00 Yes [id number] 200mg Take 1 tablet by mouth every 3 (three) days. [facility] fluconazole 200 mg tablet 0 05-08 00:00: 00 Yes [id number] 200mg Take 1 tablet by mouth every 3 (three) days. [facility] fluconazole 200 mg tablet 0 05-08 00:00: 00 Yes [id number] 200mg Take 1 tablet by mouth every 3 (three) days. [facility] fluconazole 200 mg tablet 0 05-08 00:00: 00 Yes [id number] 200mg Take 1 tablet by mouth every 3 (three) days. [facility] fluconazole 200 mg tablet 0 05-08 00:00: 00 Yes [id number] 200mg Take 1 tablet by mouth every 3 (three) days. [facility] fluconazole 200 mg tablet 2022-0 05-08 00:00: 00 Yes [id number] 200mg Take 1 tablet by mouth every 3 (three) days. [facility] fluconazole 200 mg tablet 2022-0 05-08 00:00: 00 Yes [id number] 200mg Take 1 tablet by mouth every 3 (three) days. [facility] fluconazole 200 mg tablet 0 05-08 00:00: 00 Yes [id number] 200mg Take 1 tablet by mouth every 3 (three) days. [facility] fluconazole 200 mg tablet 0 05-08 00:00: 00 Yes [id number] 200mg Take 1 tablet by mouth every 3 (three) days. [facility] fluconazole 200 mg tablet 0 05-08 00:00: 00 Yes [id number] 200mg Take 1 tablet by mouth every 3 (three) days. [facility] fluconazole 200 mg tablet 0 05-08 00:00: 00 Yes [id number] 200mg Take 1 tablet by mouth every 3 (three) days. [facility] fluconazole 200 mg tablet 0 05-08 00:00: 00 Yes [id number] 200mg Take 1 tablet by mouth every 3 (three) days. [facility] fluconazole 200 mg tablet 0 05-08 00:00: 00 Yes [id number] 200mg Take 1 tablet by mouth every 3 (three) days. [facility] fluconazole 200 mg tablet 0 05-08 00:00: 00 Yes [id number] 200mg Take 1 tablet by mouth every 3 (three) days. [facility] fluconazole 200 mg tablet 05-08 00:00: 00 Yes [id number] 200mg Take 1 tablet by mouth every 3 (three) days. [facility] fluconazole 200 mg tablet 0 05-08 00:00: 00 Yes [id number] 200mg Take 1 tablet by mouth every 3 (three) days. [facility] fluconazole 200 mg tablet 0 05-08 00:00: 00 Yes [id number] 200mg Take 1 tablet by mouth every 3 (three) days. [facility] fluconazole 200 mg tablet 0 05-08 00:00: 00 Yes [id number] 200mg Take 1 tablet by mouth every 3 (three) days. [facility] fluconazole 200 mg tablet 0 05-08 00:00: 00 Yes [id number] 200mg Take 1 tablet by mouth every 3 (three) days. [facility] fluconazole 200 mg tablet 0 05-08 00:00: 00 Yes [id number] 200mg Take 1 tablet by mouth every 3 (three) days. [facility] mg tablet 0 05-08 00:00: 00 Yes [id number] 200mg Take 1 tablet by mouth every 3 (three) days. [facility] fluconazole 200 mg tablet 2022-0 05-08 00:00: 00 Yes [id number] 200mg Take 1 tablet by mouth every 3 (three) days. [facility] fluconazole 200 mg tablet 2022-0 05-08 00:00: 00 Yes [id number] 200mg Take 1 tablet by mouth every 3 (three) days. [facility] fluconazole 200 mg tablet 0 05-08 00:00: 00 Yes [id number] 200mg Take 1 tablet by mouth every 3 (three) days. [facility] fluconazole 200 mg tablet 2022-0 05-08 00:00: 00 Yes [id number] 200mg Take 1 tablet by mouth every 3 (three) days. [facility] fluconazole 200 mg tablet 0 05-08 00:00: 00 Yes [id number] 200mg Take 1 tablet by mouth every 3 (three) days. [facility] fluconazole 200 mg tablet 0 05-08 00:00: 00 Yes [id number] 200mg Take 1 tablet by mouth every 3 (three) days. [facility] fluconazole 200 mg tablet 2022-0 05-08 00:00: 00 Yes [id number] 200mg Take 1 tablet by mouth every 3 (three) days. [facility] fluconazole 200 mg tablet 2022-0 05-08 00:00: 00 Yes [id number] 200mg Take 1 tablet by mouth every 3 (three) days. [facility] fluconazole 200 mg tablet 3-0 05-08 00:00: 00 Yes [id number] 200mg Take 1 tablet by mouth every 3 (three) days. [facility] fluconazole 200 mg tablet 3-0 05-08 00:00: 00 Yes [id number] 200mg Take 1 tablet by mouth every 3 (three) days. [facility] fluconazole 200 mg tablet 0 05-08 00:00: 00 Yes [id number] 200mg Take 1 tablet by mouth every 3 (three) days. [facility] fluconazole 200 mg tablet 0 05-08 00:00: 00 Yes [id number] 200mg Take 1 tablet by mouth every 3 (three) days. [facility] fluconazole 200 mg tablet 0 05-08 00:00: 00 Yes [id number] 200mg Take 1 tablet by mouth every 3 (three) days. [facility] fluconazole 200 mg tablet 0 05-08 00:00: 00 Yes [id number] 200mg Take 1 tablet by mouth every 3 (three) days. [facility] fluconazole 200 mg tablet 0 05-08 00:00: 00 Yes [id number] 200mg Take 1 tablet by mouth every 3 (three) days. [facility] fluconazole 200 mg tablet 0 05-08 00:00: 00 Yes [id number] 200mg Take 1 tablet by mouth every 3 (three) days. [facility] fluconazole 200 mg tablet 0 05-08 00:00: 00 Yes [id number] 200mg Take 1 tablet by mouth every 3 (three) days. [facility] fluconazole 200 mg tablet 0 05-08 00:00: 00 Yes [id number] 200mg Take 1 tablet by mouth every 3 (three) days. [facility] fluconazole 200 mg tablet 0 05-08 00:00: 00 Yes [id number] 200mg Take 1 tablet by mouth every 3 (three) days. [facility] fluconazole 200 mg tablet 2022-0 05-08 00:00: 00 Yes [id number] 200mg Take 1 tablet by mouth every 3 (three) days. [facility] fluconazole 200 mg tablet 0 05-08 00:00: 00 Yes [id number] 200mg Take 1 tablet by mouth every 3 (three) days. [facility] fluconazole 200 mg tablet 3-0 05-08 00:00: 00 Yes [id number] 200mg Take 1 tablet by mouth every 3 (three) days. [facility] fluconazole 200 mg tablet 0 05-08 00:00: 00 Yes [id number] 200mg Take 1 tablet by mouth every 3 (three) days. [facility] fluconazole 200 mg tablet 0 05-08 00:00: 00 Yes [id number] 200mg Take 1 tablet by mouth every 3 (three) days. [facility] fluconazole 200 mg tablet 2022-0 05-08 00:00: 00 Yes [id number] 200mg Take 1 tablet by mouth every 3 (three) days. [facility] fluconazole 200 mg tablet 0 05-08 00:00: 00 Yes [id number] 200mg Take 1 tablet by mouth every 3 (three) days. [facility] ampicillin 500 mg capsule 0 05-08 00:00: 00 05-16 04:59 :00 No [id number] 500mg Take 1 capsule by mouth every 6 (six) hours for 7 days. [facility] ampicillin 500 mg capsule 2022-0 05-08 00:00: 00 05-16 04:59 :00 No [id number] 500mg Take 1 capsule by mouth every 6 (six) hours for 7 days. [facility] ampicillin 500 mg capsule 3-0 05-08 00:00: 00 05-16 04:59 :00 No [id number] 500mg Take 1 capsule by mouth every 6 (six) hours for 7 days. [facility] ampicillin 500 mg capsule 3-0 05-08 00:00: 00 05-16 04:59 :00 No [id number] 500mg Take 1 capsule by mouth every 6 (six) hours for 7 days. [facility] ampicillin 500 mg capsule 3-0 05-08 00:00: 00 05-16 04:59 :00 No [id number] 500mg Take 1 capsule by mouth every 6 (six) hours for 7 days. [facility] ampicillin 500 mg capsule 3-0 05-08 00:00: 00 05-16 04:59 :00 No [id number] 500mg Take 1 capsule by mouth every 6 (six) hours for 7 days. [facility] ampicillin 500 mg capsule 2022-0 9-26 00:00: 00 10-04 04:59 :00 No [id number] 500mg Take 1 capsule by mouth every 6 (six) hours for 7 days. [facility] glyBURIDE 5 mg tablet 3-0 9-25 00:00: 00 Yes [id number] TAKE 1 TABLET BY MOUTH TWICE DAILY . APPOINTMEN T REQUIRED FOR FUTURE REFILLS [facility] glyBURIDE 5 mg tablet 3-0 9-25 00:00: 00 Yes [id number] TAKE 1 TABLET BY MOUTH TWICE DAILY . APPOINTMEN T REQUIRED FOR FUTURE REFILLS [facility] glyBURIDE 5 mg tablet 3-0 9-25 00:00: 00 Yes [id number] TAKE 1 TABLET BY MOUTH TWICE DAILY . APPOINTMEN T REQUIRED FOR FUTURE REFILLS [facility] glyBURIDE 5 mg tablet 3-0 9-25 00:00: 00 Yes [id number] TAKE 1 TABLET BY MOUTH TWICE DAILY . APPOINTMEN T REQUIRED FOR FUTURE REFILLS [facility] glyBURIDE 5 mg tablet 2022-0 25 00:00: 00 Yes [id number] TAKE 1 TABLET BY MOUTH TWICE DAILY . APPOINTMEN T REQUIRED FOR FUTURE REFILLS [facility] glyBURIDE 5 mg tablet 2022-0 9-25 00:00: 00 Yes [id number] TAKE 1 TABLET BY MOUTH TWICE DAILY . APPOINTMEN T REQUIRED FOR FUTURE REFILLS [facility] glyBURIDE 5 mg tablet 3-0 9-25 00:00: 00 Yes [id number] TAKE 1 TABLET BY MOUTH TWICE DAILY . APPOINTMEN T REQUIRED FOR FUTURE REFILLS [facility] glyBURIDE 5 mg tablet 3-0 9-25 00:00: 00 Yes [id number] TAKE 1 TABLET BY MOUTH TWICE DAILY . APPOINTMEN T REQUIRED FOR FUTURE REFILLS [facility] glyBURIDE 5 mg tablet 3-0 9-25 00:00: 00 Yes [id number] TAKE 1 TABLET BY MOUTH TWICE DAILY . APPOINTMEN T REQUIRED FOR FUTURE REFILLS [facility] glyBURIDE 5 mg tablet 3-0 9-25 00:00: 00 Yes [id number] TAKE 1 TABLET BY MOUTH TWICE DAILY . APPOINTMEN T REQUIRED FOR FUTURE REFILLS [facility] glyBURIDE 5 mg tablet 0 05-07 00:00: 00 Yes [id number] TAKE 1 TABLET BY MOUTH TWICE DAILY . APPOINTMEN T REQUIRED FOR FUTURE REFILLS [facility] glyBURIDE 5 mg tablet 0 05-07 00:00: 00 Yes [id number] TAKE 1 TABLET BY MOUTH TWICE DAILY . APPOINTMEN T REQUIRED FOR FUTURE REFILLS [facility] glyBURIDE 5 mg tablet 0 05-07 00:00: 00 Yes [id number] TAKE 1 TABLET BY MOUTH TWICE DAILY . APPOINTMEN T REQUIRED FOR FUTURE REFILLS [facility] glyBURIDE 5 mg tablet 05-07 00:00: 00 06-11 00:00 :00 No [id number] TAKE 1 TABLET BY MOUTH TWICE DAILY . APPOINTMEN T REQUIRED FOR FUTURE REFILLS [facility] glyBURIDE 5 mg tablet 05-07 00:00: 00 06-11 00:00 :00 No [id number] TAKE 1 TABLET BY MOUTH TWICE DAILY . APPOINTMEN T REQUIRED FOR FUTURE REFILLS [facility] NOVOLIN N NPH U-100 INSULIN 100 unit/mL injection 05-03 00:00: 00 Yes [id number] INJECT 10 UNITS UNDER THE SKIN IN THE MORNING. INJECT ONLY IF FASTING BLOOD SUGAR GREATER THAN 150 [facility] NOVOLIN N NPH U-100 INSULIN 100 unit/mL injection 05-03 00:00: 00 Yes [id number] INJECT 10 UNITS UNDER THE SKIN IN THE MORNING. INJECT ONLY IF FASTING BLOOD SUGAR GREATER THAN 150 [facility] NOVOLIN N NPH U-100 INSULIN 100 unit/mL injection 0 05-03 00:00: 00 Yes [id number] INJECT 10 UNITS UNDER THE SKIN IN THE MORNING. INJECT ONLY IF FASTING BLOOD SUGAR GREATER THAN 150 [facility] NOVOLIN N NPH U-100 INSULIN 100 unit/mL injection 05-03 00:00: 00 Yes [id number] INJECT 10 UNITS UNDER THE SKIN IN THE MORNING. INJECT ONLY IF FASTING BLOOD SUGAR GREATER THAN 150 [facility] NOVOLIN N NPH U-100 INSULIN 100 unit/mL injection 05-03 00:00: 00 Yes [id number] INJECT 10 UNITS UNDER THE SKIN IN THE MORNING. INJECT ONLY IF FASTING BLOOD SUGAR GREATER THAN 150 [facility] NOVOLIN N NPH U-100 INSULIN 100 unit/mL injection 05-03 00:00: 00 Yes [id number] INJECT 10 UNITS UNDER THE SKIN IN THE MORNING. INJECT ONLY IF FASTING BLOOD SUGAR GREATER THAN 150 [facility] NOVOLIN N NPH U-100 INSULIN 100 unit/mL injection 05-03 00:00: 00 Yes [id number] INJECT 10 UNITS UNDER THE SKIN IN THE MORNING. INJECT ONLY IF FASTING BLOOD SUGAR GREATER THAN 150 [facility] NOVOLIN N NPH U-100 INSULIN 100 unit/mL injection 05-03 00:00: 00 Yes [id number] INJECT 10 UNITS UNDER THE SKIN IN THE MORNING. INJECT ONLY IF FASTING BLOOD SUGAR GREATER THAN 150 [facility] NOVOLIN N NPH U-100 INSULIN 100 unit/mL injection 05-03 00:00: 00 Yes [id number] INJECT 10 UNITS UNDER THE SKIN IN THE MORNING. INJECT ONLY IF FASTING BLOOD SUGAR GREATER THAN 150 [facility] NOVOLIN N NPH U-100 INSULIN 100 unit/mL injection 05-03 00:00: 00 Yes [id number] INJECT 10 UNITS UNDER THE SKIN IN THE MORNING. INJECT ONLY IF FASTING BLOOD SUGAR GREATER THAN 150 [facility] NOVOLIN N NPH U-100 INSULIN 100 unit/mL injection 05-03 00:00: 00 Yes [id number] INJECT 10 UNITS UNDER THE SKIN IN THE MORNING. INJECT ONLY IF FASTING BLOOD SUGAR GREATER THAN 150 [facility] NOVOLIN N NPH U-100 INSULIN 100 unit/mL injection 05-03 00:00: 00 Yes [id number] INJECT 10 UNITS UNDER THE SKIN IN THE MORNING. INJECT ONLY IF FASTING BLOOD SUGAR GREATER THAN 150 [facility] NOVOLIN N NPH U-100 INSULIN 100 unit/mL injection 05-03 00:00: 00 Yes [id number] INJECT 10 UNITS UNDER THE SKIN IN THE MORNING. INJECT ONLY IF FASTING BLOOD SUGAR GREATER THAN 150 [facility] NOVOLIN N NPH U-100 INSULIN 100 unit/mL injection 05-03 00:00: 00 Yes [id number] INJECT 10 UNITS UNDER THE SKIN IN THE MORNING. INJECT ONLY IF FASTING BLOOD SUGAR GREATER THAN 150 [facility] NOVOLIN N NPH U-100 INSULIN 100 unit/mL injection 05-03 00:00: 00 Yes [id number] INJECT 10 UNITS UNDER THE SKIN IN THE MORNING. INJECT ONLY IF FASTING BLOOD SUGAR GREATER THAN 150 [facility] NOVOLIN N NPH U-100 INSULIN 100 unit/mL injection 05-03 00:00: 00 Yes [id number] INJECT 10 UNITS UNDER THE SKIN IN THE MORNING. INJECT ONLY IF FASTING BLOOD SUGAR GREATER THAN 150 [facility] NOVOLIN N NPH U-100 INSULIN 100 unit/mL injection 05-03 00:00: 00 Yes [id number] INJECT 10 UNITS UNDER THE SKIN IN THE MORNING. INJECT ONLY IF FASTING BLOOD SUGAR GREATER THAN 150 [facility] NOVOLIN N NPH U-100 INSULIN 100 unit/mL injection 05-03 00:00: 00 Yes [id number] INJECT 10 UNITS UNDER THE SKIN IN THE MORNING. INJECT ONLY IF FASTING BLOOD SUGAR GREATER THAN 150 [facility] NOVOLIN N NPH U-100 INSULIN 100 unit/mL injection 05-03 00:00: 00 Yes [id number] INJECT 10 UNITS UNDER THE SKIN IN THE MORNING. INJECT ONLY IF FASTING BLOOD SUGAR GREATER THAN 150 [facility] NOVOLIN N NPH U-100 INSULIN 100 unit/mL injection 05-03 00:00: 00 Yes [id number] INJECT 10 UNITS UNDER THE SKIN IN THE MORNING. INJECT ONLY IF FASTING BLOOD SUGAR GREATER THAN 150 [facility] NOVOLIN N NPH U-100 INSULIN 100 unit/mL injection 05-03 00:00: 00 Yes [id number] INJECT 10 UNITS UNDER THE SKIN IN THE MORNING. INJECT ONLY IF FASTING BLOOD SUGAR GREATER THAN 150 [facility] NOVOLIN N NPH U-100 INSULIN 100 unit/mL injection 05-03 00:00: 00 Yes [id number] INJECT 10 UNITS UNDER THE SKIN IN THE MORNING. INJECT ONLY IF FASTING BLOOD SUGAR GREATER THAN 150 [facility] NOVOLIN N NPH U-100 INSULIN 100 unit/mL injection 05-03 00:00: 00 Yes [id number] INJECT 10 UNITS UNDER THE SKIN IN THE MORNING. INJECT ONLY IF FASTING BLOOD SUGAR GREATER THAN 150 [facility] NOVOLIN N NPH U-100 INSULIN 100 unit/mL injection 05-03 00:00: 00 Yes [id number] INJECT 10 UNITS UNDER THE SKIN IN THE MORNING. INJECT ONLY IF FASTING BLOOD SUGAR GREATER THAN 150 [facility] NOVOLIN N NPH U-100 INSULIN 100 unit/mL injection 05-03 00:00: 00 Yes [id number] INJECT 10 UNITS UNDER THE SKIN IN THE MORNING. INJECT ONLY IF FASTING BLOOD SUGAR GREATER THAN 150 [facility] NOVOLIN N NPH U-100 INSULIN 100 unit/mL injection 05-03 00:00: 00 Yes [id number] INJECT 10 UNITS UNDER THE SKIN IN THE MORNING. INJECT ONLY IF FASTING BLOOD SUGAR GREATER THAN 150 [facility] NOVOLIN N NPH U-100 INSULIN 100 unit/mL injection 05-03 00:00: 00 Yes [id number] INJECT 10 UNITS UNDER THE SKIN IN THE MORNING. INJECT ONLY IF FASTING BLOOD SUGAR GREATER THAN 150 [facility] NOVOLIN N NPH U-100 INSULIN 100 unit/mL injection 05-03 00:00: 00 Yes [id number] INJECT 10 UNITS UNDER THE SKIN IN THE MORNING. INJECT ONLY IF FASTING BLOOD SUGAR GREATER THAN 150 [facility] NOVOLIN N NPH U-100 INSULIN 100 unit/mL injection 05-03 00:00: 00 Yes [id number] INJECT 10 UNITS UNDER THE SKIN IN THE MORNING. INJECT ONLY IF FASTING BLOOD SUGAR GREATER THAN 150 [facility] NOVOLIN N NPH U-100 INSULIN 100 unit/mL injection 05-03 00:00: 00 Yes [id number] INJECT 10 UNITS UNDER THE SKIN IN THE MORNING. INJECT ONLY IF FASTING BLOOD SUGAR GREATER THAN 150 [facility] NOVOLIN N NPH U-100 INSULIN 100 unit/mL injection 05-03 00:00: 00 Yes [id number] INJECT 10 UNITS UNDER THE SKIN IN THE MORNING. INJECT ONLY IF FASTING BLOOD SUGAR GREATER THAN 150 [facility] NOVOLIN N NPH U-100 INSULIN 100 unit/mL injection 05-03 00:00: 00 Yes [id number] INJECT 10 UNITS UNDER THE SKIN IN THE MORNING. INJECT ONLY IF FASTING BLOOD SUGAR GREATER THAN 150 [facility] NOVOLIN N NPH U-100 INSULIN 100 unit/mL injection 05-03 00:00: 00 Yes [id number] INJECT 10 UNITS UNDER THE SKIN IN THE MORNING. INJECT ONLY IF FASTING BLOOD SUGAR GREATER THAN 150 [facility] NOVOLIN N NPH U-100 INSULIN 100 unit/mL injection 05-03 00:00: 00 Yes [id number] INJECT 10 UNITS UNDER THE SKIN IN THE MORNING. INJECT ONLY IF FASTING BLOOD SUGAR GREATER THAN 150 [facility] NOVOLIN N NPH U-100 INSULIN 100 unit/mL injection 05-03 00:00: 00 Yes [id number] INJECT 10 UNITS UNDER THE SKIN IN THE MORNING. INJECT ONLY IF FASTING BLOOD SUGAR GREATER THAN 150 [facility] NOVOLIN N NPH U-100 INSULIN 100 unit/mL injection 05-03 00:00: 00 Yes [id number] INJECT 10 UNITS UNDER THE SKIN IN THE MORNING. INJECT ONLY IF FASTING BLOOD SUGAR GREATER THAN 150 [facility] NOVOLIN N NPH U-100 INSULIN 100 unit/mL injection 05-03 00:00: 00 Yes [id number] INJECT 10 UNITS UNDER THE SKIN IN THE MORNING. INJECT ONLY IF FASTING BLOOD SUGAR GREATER THAN 150 [facility] NOVOLIN N NPH U-100 INSULIN 100 unit/mL injection 05-03 00:00: 00 Yes [id number] INJECT 10 UNITS UNDER THE SKIN IN THE MORNING. INJECT ONLY IF FASTING BLOOD SUGAR GREATER THAN 150 [facility] NOVOLIN N NPH U-100 INSULIN 100 unit/mL injection 05-03 00:00: 00 Yes [id number] INJECT 10 UNITS UNDER THE SKIN IN THE MORNING. INJECT ONLY IF FASTING BLOOD SUGAR GREATER THAN 150 [facility] NOVOLIN N NPH U-100 INSULIN 100 unit/mL injection 05-03 00:00: 00 Yes [id number] INJECT 10 UNITS UNDER THE SKIN IN THE MORNING. INJECT ONLY IF FASTING BLOOD SUGAR GREATER THAN 150 [facility] NOVOLIN N NPH U-100 INSULIN 100 unit/mL injection 05-03 00:00: 00 Yes [id number] INJECT 10 UNITS UNDER THE SKIN IN THE MORNING. INJECT ONLY IF FASTING BLOOD SUGAR GREATER THAN 150 [facility] NOVOLIN N NPH U-100 INSULIN 100 unit/mL injection 05-03 00:00: 00 Yes [id number] INJECT 10 UNITS UNDER THE SKIN IN THE MORNING. INJECT ONLY IF FASTING BLOOD SUGAR GREATER THAN 150 [facility] NOVOLIN N NPH U-100 INSULIN 100 unit/mL injection 05-03 00:00: 00 Yes [id number] INJECT 10 UNITS UNDER THE SKIN IN THE MORNING. INJECT ONLY IF FASTING BLOOD SUGAR GREATER THAN 150 [facility] NOVOLIN N NPH U-100 INSULIN 100 unit/mL injection 05-03 00:00: 00 Yes [id number] INJECT 10 UNITS UNDER THE SKIN IN THE MORNING. INJECT ONLY IF FASTING BLOOD SUGAR GREATER THAN 150 [facility] NOVOLIN N NPH U-100 INSULIN 100 unit/mL injection 05-03 00:00: 00 Yes [id number] INJECT 10 UNITS UNDER THE SKIN IN THE MORNING. INJECT ONLY IF FASTING BLOOD SUGAR GREATER THAN 150 [facility] NOVOLIN N NPH U-100 INSULIN 100 unit/mL injection 05-03 00:00: 00 Yes [id number] INJECT 10 UNITS UNDER THE SKIN IN THE MORNING. INJECT ONLY IF FASTING BLOOD SUGAR GREATER THAN 150 [facility] NOVOLIN N NPH U-100 INSULIN 100 unit/mL injection 05-03 00:00: 00 Yes [id number] INJECT 10 UNITS UNDER THE SKIN IN THE MORNING. INJECT ONLY IF FASTING BLOOD SUGAR GREATER THAN 150 [facility] NOVOLIN N NPH U-100 INSULIN 100 unit/mL injection 05-03 00:00: 00 Yes [id number] INJECT 10 UNITS UNDER THE SKIN IN THE MORNING. INJECT ONLY IF FASTING BLOOD SUGAR GREATER THAN 150 [facility] NOVOLIN N NPH U-100 INSULIN 100 unit/mL injection 05-03 00:00: 00 10-14 00:00 :00 No [id number] INJECT 10 UNITS UNDER THE SKIN IN THE MORNING. INJECT ONLY IF FASTING BLOOD SUGAR GREATER THAN 150 [facility] NOVOLIN N NPH U-100 INSULIN 100 unit/mL injection 05-03 00:00: 00 10-14 00:00 :00 No [id number] INJECT 10 UNITS UNDER THE SKIN IN THE MORNING. INJECT ONLY IF FASTING BLOOD SUGAR GREATER THAN 150 [facility] NOVOLIN N NPH U-100 INSULIN 100 unit/mL injection 05-03 00:00: 00 10-14 00:00 :00 No [id number] INJECT 10 UNITS UNDER THE SKIN IN THE MORNING. INJECT ONLY IF FASTING BLOOD SUGAR GREATER THAN 150 [facility] PROMETHAZIN E 12.5 mg tablet 2022-0 04-10 00:00: 00 Yes [id number] TAKE 2 TABLETS BY MOUTH EVERY 6 HOURS NEEDED FOR NAUSEA AND VOMITING [facility] PROMETHAZIN E 12.5 mg tablet 2022-0 04-10 00:00: 00 Yes [id number] TAKE 2 TABLETS BY MOUTH EVERY 6 HOURS NEEDED FOR NAUSEA AND VOMITING [facility] PROMETHAZIN E 12.5 mg tablet 3-0 04-10 00:00: 00 Yes [id number] TAKE 2 TABLETS BY MOUTH EVERY 6 HOURS NEEDED FOR NAUSEA AND VOMITING [facility] PROMETHAZIN E 12.5 mg tablet 3-0 04-10 00:00: 00 Yes [id number] TAKE 2 TABLETS BY MOUTH EVERY 6 HOURS NEEDED FOR NAUSEA AND VOMITING [facility] PROMETHAZIN E 12.5 mg tablet 2022-0 04-10 00:00: 00 Yes [id number] TAKE 2 TABLETS BY MOUTH EVERY 6 HOURS NEEDED FOR NAUSEA AND VOMITING [facility] PROMETHAZIN E 12.5 mg tablet 3-0 29 00:00: 00 Yes [id number] TAKE 2 TABLETS BY MOUTH EVERY 6 HOURS NEEDED FOR NAUSEA AND VOMITING [facility] PROMETHAZIN E 12.5 mg tablet 3-0 04-10 00:00: 00 Yes [id number] TAKE 2 TABLETS BY MOUTH EVERY 6 HOURS NEEDED FOR NAUSEA AND VOMITING [facility] PROMETHAZIN E 12.5 mg tablet 2022-0 04-10 00:00: 00 Yes [id number] TAKE 2 TABLETS BY MOUTH EVERY 6 HOURS NEEDED FOR NAUSEA AND VOMITING [facility] PROMETHAZIN E 12.5 mg tablet 0 04-10 00:00: 00 Yes [id number] TAKE 2 TABLETS BY MOUTH EVERY 6 HOURS NEEDED FOR NAUSEA AND VOMITING [facility] PROMETHAZIN E 12.5 mg tablet 2022-0 04-10 00:00: 00 Yes [id number] TAKE 2 TABLETS BY MOUTH EVERY 6 HOURS NEEDED FOR NAUSEA AND VOMITING [facility] PROMETHAZIN E 12.5 mg tablet 0 04-10 00:00: 00 Yes [id number] TAKE 2 TABLETS BY MOUTH EVERY 6 HOURS NEEDED FOR NAUSEA AND VOMITING [facility] PROMETHAZIN E 12.5 mg tablet 0 04-10 00:00: 00 Yes [id number] TAKE 2 TABLETS BY MOUTH EVERY 6 HOURS NEEDED FOR NAUSEA AND VOMITING [facility] PROMETHAZIN E 12.5 mg tablet 0 04-10 00:00: 00 Yes [id number] TAKE 2 TABLETS BY MOUTH EVERY 6 HOURS NEEDED FOR NAUSEA AND VOMITING [facility] PROMETHAZIN E 12.5 mg tablet 0 04-10 00:00: 00 10 00:00 :00 No [id number] TAKE 2 TABLETS BY MOUTH EVERY 6 HOURS NEEDED FOR NAUSEA AND VOMITING [facility] lactated ringers IV infusion 1,000 mL 04-09 14:45: 00 Yes 1000mL at 100 mL/hr, 1,000 mL, IV Infusion, CONTINUOUS , Starting on Sun04/09/23 at 0945, Until Discontinu ed, Routine, PACU [facility] lactated ringers IV infusion 1,000 mL 04-09 14:45: 00 04-09 17:10 :30 No 1000mL at 100 mL/hr, 1,000 mL, IV Infusion, CONTINUOUS , Starting on Sun04/09/23 at 0945, Until Sun04/09/23 at 1210, Routine, PACU [facility] ondansetron (ZOFRAN (PF)) injection 4 mg 04-09 14:30: 37 Yes 4mg 4 mg, Slow IV Push, PRN, 1 dose, Starting on Sun04/09/23 at 0930, Until Discontinu ed, Routine, Nausea and Vomiting (N/V), PACU [facility] ondansetron (ZOFRAN (PF)) injection 4 mg 04-09 14:30: 37 04-09 17:10 :30 No 4mg 4 mg, Slow IV Push, PRN, 1 dose, Starting on Sun04/09/23 at 0930, Until Sun04/09/23 at 1210, Routine, Nausea and Vomiting (N/V), PACU [facility] lactated ringers IV infusion 04-09 13:54: 00 04-09 14:16 :45 No IV Infusion, CONTINUOUS PRN, Starting on Sun04/09/23 at 0854, Until Sun04/09/23 at 0916, Routine, Intra-op [facility] propofoL IV infusion 04-09 13:54: 00 04-09 14:16 :45 No IV Infusion, ONCE INTRA PROCEDURE, Starting on Sun04/09/23 at 0854, Until Sun04/09/23 at 0916, Routine, Intra-op [facility] lidocaine 2% (XYLOCAINE) 20 mg/mL (2 %) injection 04-09 13:54: 00 04-09 14:16 :45 No Intravenou s, ONCE INTRA PROCEDURE, Starting on Sun04/09/23 at 0854, Until Sun04/09/23 at 0916, Routine, Intra-op [facility] midazolam (VERSED) injection 04-09 13:54: 00 04-09 14:16 :45 No IV Push, ONCE INTRA PROCEDURE, Starting on Sun04/09/23 at 0854, Until Sun04/09/23 at 0916, Routine, Intra-op [facility] lactated ringers IV infusion 04-09 13:54: 00 04-09 14:16 :45 No IV Infusion, CONTINUOUS PRN, Starting on Sun04/09/23 at 0854, Until Sun04/09/23 at 0916, Routine, Intra-op Univers [facility] propofoL IV infusion 04-09 13:54: 00 04-09 14:16 :45 No IV Infusion, ONCE INTRA PROCEDURE, Starting on Sun04/09/23 at 0854, Until Sun04/09/23 at 0916, Routine, Intra-op [facility] lidocaine 2% (XYLOCAINE) 20 mg/mL (2 %) injection 04-09 13:54: 00 04-09 14:16 :45 No Intravenou s, ONCE INTRA PROCEDURE, Starting on Sun04/09/23 at 0854, Until Sun04/09/23 at 0916, Routine, Intra-op [facility] midazolam (VERSED) injection 04-09 13:54: 00 04-09 14:16 :45 No IV Push, ONCE INTRA PROCEDURE, Starting on Sun04/09/23 at 0854, Until Sun04/09/23 at 0916, Routine, Intra-op [facility] lactated ringers IV infusion 1,000 mL 04-09 12:45: 00 04-09 13:04 :00 No 1000mL at 42 mL/hr, 1,000 mL, IV Infusion, ONCE, 1 dose, On Sun04/09/23 at 0745, Routine, Endo Pre-op Univers [facility] lactated ringers IV infusion 1,000 mL 04-09 12:45: 00 04-09 13:04 :00 No 1000mL at 42 mL/hr, 1,000 mL, IV Infusion, ONCE, 1 dose, On Sun04/09/23 at 0745, Routine, Endo Pre-op [facility] semaglutide (OZEMPIC) 2 mg/dose (8 mg/3 mL) PnIj 04-03 00:00: 00 Yes [id number] INJECT TWO (2) MG UNDER THE SKIN ONCE WEEKLY. [facility] semaglutide (OZEMPIC) 2 mg/dose (8 mg/3 mL) PnIj 04-03 00:00: 00 Yes [id number] INJECT TWO (2) MG UNDER THE SKIN ONCE WEEKLY. [facility] semaglutide (OZEMPIC) 2 mg/dose (8 mg/3 mL) PnIj 3-0 8- 00:00: 00 Yes [id number] INJECT TWO (2) MG UNDER THE SKIN ONCE WEEKLY. [facility] semaglutide (OZEMPIC) 2 mg/dose (8 mg/3 mL) PnIj 3-0 8- 00:00: 00 Yes [id number] INJECT TWO (2) MG UNDER THE SKIN ONCE WEEKLY. [facility] semaglutide (OZEMPIC) 2 mg/dose (8 mg/3 mL) PnIj 3-0 8- 00:00: 00 Yes [id number] INJECT TWO (2) MG UNDER THE SKIN ONCE WEEKLY. [facility] semaglutide (OZEMPIC) 2 mg/dose (8 mg/3 mL) PnIj 3-0 8- 00:00: 00 Yes [id number] INJECT TWO (2) MG UNDER THE SKIN ONCE WEEKLY. [facility] semaglutide (OZEMPIC) 2 mg/dose (8 mg/3 mL) PnIj 3-0 8- 00:00: 00 Yes [id number] INJECT TWO (2) MG UNDER THE SKIN ONCE WEEKLY. [facility] semaglutide (OZEMPIC) 2 mg/dose (8 mg/3 mL) PnIj 3-0 8- 00:00: 00 Yes [id number] INJECT TWO (2) MG UNDER THE SKIN ONCE WEEKLY. [facility] semaglutide (OZEMPIC) 2 mg/dose (8 mg/3 mL) PnIj 3-0 8- 00:00: 00 Yes [id number] INJECT TWO (2) MG UNDER THE SKIN ONCE WEEKLY. [facility] semaglutide (OZEMPIC) 2 mg/dose (8 mg/3 mL) PnIj 2023-0 8- 00:00: 00 Yes [id number] INJECT TWO (2) MG UNDER THE SKIN ONCE WEEKLY. [facility] semaglutide (OZEMPIC) 2 mg/dose (8 mg/3 mL) PnIj 3-0 8-22 00:00: 00 Yes [id number] INJECT TWO (2) MG UNDER THE SKIN ONCE WEEKLY. [facility] semaglutide (OZEMPIC) 2 mg/dose (8 mg/3 mL) PnIj 3-0 8-22 00:00: 00 Yes [id number] INJECT TWO (2) MG UNDER THE SKIN ONCE WEEKLY. [facility] it[facility] semaglutide (OZEMPIC) 2 mg/dose (8 mg/3 mL) PnIj 3-0 8- 00:00: 00 Yes [id number] INJECT TWO (2) MG UNDER THE SKIN ONCE WEEKLY. [facility] it[facility] semaglutide (OZEMPIC) 2 mg/dose (8 mg/3 mL) PnIj 3-0 8- 00:00: 00 Yes [id number] INJECT TWO (2) MG UNDER THE SKIN ONCE WEEKLY. [facility] it[facility] semaglutide (OZEMPIC) 2 mg/dose (8 mg/3 mL) PnIj 3-0 8- 00:00: 00 Yes [id number] INJECT TWO (2) MG UNDER THE SKIN ONCE WEEKLY. [facility] it[facility] semaglutide (OZEMPIC) 2 mg/dose (8 mg/3 mL) PnIj 3-0 8- 00:00: 00 Yes [id number] INJECT TWO (2) MG UNDER THE SKIN ONCE WEEKLY. [facility] semaglutide (OZEMPIC) 2 mg/dose (8 mg/3 mL) PnIj 3-0 8- 00:00: 00 Yes [id number] INJECT TWO (2) MG UNDER THE SKIN ONCE WEEKLY. [facility] it[facility] semaglutide (OZEMPIC) 2 mg/dose (8 mg/3 mL) PnIj 2023-0 8-22 00:00: 00 Yes [id number] INJECT TWO (2) MG UNDER THE SKIN ONCE WEEKLY. [facility] it[facility] semaglutide (OZEMPIC) 2 mg/dose (8 mg/3 mL) PnIj 2023-0 8-22 00:00: 00 Yes [id number] INJECT TWO (2) MG UNDER THE SKIN ONCE WEEKLY. [facility] ity [facility] semaglutide (OZEMPIC) 2 mg/dose (8 mg/3 mL) PnIj 2022-0 8- 00:00: 00 Yes [id number] INJECT TWO (2) MG UNDER THE SKIN ONCE WEEKLY. [facility] ity [facility] semaglutide (OZEMPIC) 2 mg/dose (8 mg/3 mL) PnIj 2022-0 8- 00:00: 00 Yes [id number] INJECT TWO (2) MG UNDER THE SKIN ONCE WEEKLY. [facility] it[facility] semaglutide (OZEMPIC) 2 mg/dose (8 mg/3 mL) PnIj 2022-0 8- 00:00: 00 Yes [id number] INJECT TWO (2) MG UNDER THE SKIN ONCE WEEKLY. [facility] semaglutide (OZEMPIC) 2 mg/dose (8 mg/3 mL) PnIj 2022-0 8- 00:00: 00 Yes [id number] INJECT TWO (2) MG UNDER THE SKIN ONCE WEEKLY. [facility] semaglutide (OZEMPIC) 2 mg/dose (8 mg/3 mL) PnIj 2022-0 8- 00:00: 00 Yes [id number] INJECT TWO (2) MG UNDER THE SKIN ONCE WEEKLY. [facility] semaglutide (OZEMPIC) 2 mg/dose (8 mg/3 mL) PnIj 2022-0 8- 00:00: 00 Yes [id number] INJECT TWO (2) MG UNDER THE SKIN ONCE WEEKLY. [facility] semaglutide (OZEMPIC) 2 mg/dose (8 mg/3 mL) PnIj 2022-0 8- 00:00: 00 06-11 00:00 :00 No [id number] INJECT TWO (2) MG UNDER THE SKIN ONCE WEEKLY. [facility] semaglutide (OZEMPIC) 2 mg/dose (8 mg/3 mL) PnIj 0 8- 00:00: 00 06-11 00:00 :00 No [id number] INJECT TWO (2) MG UNDER THE SKIN ONCE WEEKLY. [facility] NOVOLIN N NPH U-100 INSULIN 100 unit/mL injection 2023-0 8-15 00:00: 00 Yes [id number] INJECT 10 UNITS UNDER THE SKIN IN THE MORNING. INJECT ONLY IF FASTING BLOOD SUGAR GREATER THAN 150 [facility] NOVOLIN N NPH U-100 INSULIN 100 unit/mL injection 03-27 00:00: 00 Yes [id number] INJECT 10 UNITS UNDER THE SKIN IN THE MORNING. INJECT ONLY IF FASTING BLOOD SUGAR GREATER THAN 150 [facility] NOVOLIN N NPH U-100 INSULIN 100 unit/mL injection 03-27 00:00: 00 Yes [id number] INJECT 10 UNITS UNDER THE SKIN IN THE MORNING. INJECT ONLY IF FASTING BLOOD SUGAR GREATER THAN 150 [facility] NOVOLIN N NPH U-100 INSULIN 100 unit/mL injection 03-27 00:00: 00 Yes [id number] INJECT 10 UNITS UNDER THE SKIN IN THE MORNING. INJECT ONLY IF FASTING BLOOD SUGAR GREATER THAN 150 [facility] NOVOLIN N NPH U-100 INSULIN 100 unit/mL injection 03-27 00:00: 00 Yes [id number] INJECT 10 UNITS UNDER THE SKIN IN THE MORNING. INJECT ONLY IF FASTING BLOOD SUGAR GREATER THAN 150 [facility] NOVOLIN N NPH U-100 INSULIN 100 unit/mL injection 03-27 00:00: 00 Yes [id number] INJECT 10 UNITS UNDER THE SKIN IN THE MORNING. INJECT ONLY IF FASTING BLOOD SUGAR GREATER THAN 150 [facility] NOVOLIN N NPH U-100 INSULIN 100 unit/mL injection 03-27 00:00: 00 Yes [id number] INJECT 10 UNITS UNDER THE SKIN IN THE MORNING. INJECT ONLY IF FASTING BLOOD SUGAR GREATER THAN 150 [facility] NOVOLIN N NPH U-100 INSULIN 100 unit/mL injection 03-27 00:00: 00 Yes [id number] INJECT 10 UNITS UNDER THE SKIN IN THE MORNING. INJECT ONLY IF FASTING BLOOD SUGAR GREATER THAN 150 [facility] NOVOLIN N NPH U-100 INSULIN 100 unit/mL injection 03-27 00:00: 00 Yes [id number] INJECT 10 UNITS UNDER THE SKIN IN THE MORNING. INJECT ONLY IF FASTING BLOOD SUGAR GREATER THAN 150 [facility] NOVOLIN N NPH U-100 INSULIN 100 unit/mL injection 03-27 00:00: 00 Yes [id number] INJECT 10 UNITS UNDER THE SKIN IN THE MORNING. INJECT ONLY IF FASTING BLOOD SUGAR GREATER THAN 150 [facility] NOVOLIN N NPH U-100 INSULIN 100 unit/mL injection 03-27 00:00: 00 Yes [id number] INJECT 10 UNITS UNDER THE SKIN IN THE MORNING. INJECT ONLY IF FASTING BLOOD SUGAR GREATER THAN 150 [facility] NOVOLIN N NPH U-100 INSULIN 100 unit/mL injection 03-27 00:00: 00 Yes [id number] INJECT 10 UNITS UNDER THE SKIN IN THE MORNING. INJECT ONLY IF FASTING BLOOD SUGAR GREATER THAN 150 [facility] NOVOLIN N NPH U-100 INSULIN 100 unit/mL injection 03-27 00:00: 00 Yes [id number] INJECT 10 UNITS UNDER THE SKIN IN THE MORNING. INJECT ONLY IF FASTING BLOOD SUGAR GREATER THAN 150 Univers [facility] NOVOLIN N NPH U-100 INSULIN 100 unit/mL injection 03-27 00:00: 00 Yes [id number] INJECT 10 UNITS UNDER THE SKIN IN THE MORNING. INJECT ONLY IF FASTING BLOOD SUGAR GREATER THAN 150 [facility] NOVOLIN N NPH U-100 INSULIN 100 unit/mL injection 03-27 00:00: 00 05-03 00:00 :00 No [id number] INJECT 10 UNITS UNDER THE SKIN IN THE MORNING. INJECT ONLY IF FASTING BLOOD SUGAR GREATER THAN 150 [facility] JARDIANCE 25 mg Tab 03-14 00:00: 00 Yes [id number] TAKE 1 TABLET BY MOUTH ONCE DAILY IN THE MORNING [facility] metformin ER 500 mg 24 hr tablet 03-14 00:00: 00 Yes [id number] TAKE 2 TABLETS BY MOUTH IN THE MORNING AND TAKE 3 TABLETS IN THE EVENING( NEEDS APPOINTMEN T) [facility] JARDIANCE 25 mg Tab 03-14 00:00: 00 Yes [id number] TAKE 1 TABLET BY MOUTH ONCE DAILY IN THE MORNING [facility] metformin ER 500 mg 24 hr tablet 03-14 00:00: 00 Yes [id number] TAKE 2 TABLETS BY MOUTH IN THE MORNING AND TAKE 3 TABLETS IN THE EVENING( NEEDS APPOINTMEN T) [facility] JARDIANCE 25 mg Tab 3-0 03-14 00:00: 00 Yes [id number] TAKE 1 TABLET BY MOUTH ONCE DAILY IN THE MORNING [facility] metformin ER 500 mg 24 hr tablet 2022-0 03-14 00:00: 00 Yes [id number] TAKE 2 TABLETS BY MOUTH IN THE MORNING AND TAKE 3 TABLETS IN THE EVENING( NEEDS APPOINTMEN T) [facility] JARDIANCE 25 mg Tab 3-0 03-14 00:00: 00 Yes [id number] TAKE 1 TABLET BY MOUTH ONCE DAILY IN THE MORNING [facility] metformin ER 500 mg 24 hr tablet 2022-0 03-14 00:00: 00 Yes [id number] TAKE 2 TABLETS BY MOUTH IN THE MORNING AND TAKE 3 TABLETS IN THE EVENING( NEEDS APPOINTMEN T) [facility] JARDIANCE 25 mg Tab 3-0 03-14 00:00: 00 Yes [id number] TAKE 1 TABLET BY MOUTH ONCE DAILY IN THE MORNING [facility] metformin ER 500 mg 24 hr tablet 2022-0 03-14 00:00: 00 Yes [id number] TAKE 2 TABLETS BY MOUTH IN THE MORNING AND TAKE 3 TABLETS IN THE EVENING( NEEDS APPOINTMEN T) [facility] JARDIANCE 25 mg Tab 3-0 03-14 00:00: 00 Yes [id number] TAKE 1 TABLET BY MOUTH ONCE DAILY IN THE MORNING [facility] metformin ER 500 mg 24 hr tablet 2022-0 03-14 00:00: 00 Yes [id number] TAKE 2 TABLETS BY MOUTH IN THE MORNING AND TAKE 3 TABLETS IN THE EVENING( NEEDS APPOINTMEN T) [facility] JARDIANCE 25 mg Tab 3-0 03-14 00:00: 00 Yes [id number] TAKE 1 TABLET BY MOUTH ONCE DAILY IN THE MORNING [facility] metformin ER 500 mg 24 hr tablet 3-0 03-14 00:00: 00 Yes [id number] TAKE 2 TABLETS BY MOUTH IN THE MORNING AND TAKE 3 TABLETS IN THE EVENING( NEEDS APPOINTMEN T) [facility] JARDIANCE 25 mg Tab 3-0 03-14 00:00: 00 Yes [id number] TAKE 1 TABLET BY MOUTH ONCE DAILY IN THE MORNING [facility] metformin ER 500 mg 24 hr tablet 2022-0 03-14 00:00: 00 Yes [id number] TAKE 2 TABLETS BY MOUTH IN THE MORNING AND TAKE 3 TABLETS IN THE EVENING( NEEDS APPOINTMEN T) [facility] JARDIANCE 25 mg Tab 2022-0 03-14 00:00: 00 Yes [id number] TAKE 1 TABLET BY MOUTH ONCE DAILY IN THE MORNING [facility] metformin ER 500 mg 24 hr tablet 2022-0 03-14 00:00: 00 Yes [id number] TAKE 2 TABLETS BY MOUTH IN THE MORNING AND TAKE 3 TABLETS IN THE EVENING( NEEDS APPOINTMEN T) [facility] JARDIANCE 25 mg Tab 2022-0 03-14 00:00: 00 Yes [id number] TAKE 1 TABLET BY MOUTH ONCE DAILY IN THE MORNING [facility] metformin ER 500 mg 24 hr tablet 2022-0 03-14 00:00: 00 Yes [id number] TAKE 2 TABLETS BY MOUTH IN THE MORNING AND TAKE 3 TABLETS IN THE EVENING( NEEDS APPOINTMEN T) [facility] JARDIANCE 25 mg Tab 2022-0 03-14 00:00: 00 Yes [id number] TAKE 1 TABLET BY MOUTH ONCE DAILY IN THE MORNING [facility] metformin ER 500 mg 24 hr tablet 2022-0 03-14 00:00: 00 Yes [id number] TAKE 2 TABLETS BY MOUTH IN THE MORNING AND TAKE 3 TABLETS IN THE EVENING( NEEDS APPOINTMEN T) [facility] JARDIANCE 25 mg Tab 3-0 03-14 00:00: 00 Yes [id number] TAKE 1 TABLET BY MOUTH ONCE DAILY IN THE MORNING [facility] metformin ER 500 mg 24 hr tablet 2022-0 03-14 00:00: 00 Yes [id number] TAKE 2 TABLETS BY MOUTH IN THE MORNING AND TAKE 3 TABLETS IN THE EVENING( NEEDS APPOINTMEN T) [facility] JARDIANCE 25 mg Tab 2022-0 03-14 00:00: 00 Yes [id number] TAKE 1 TABLET BY MOUTH ONCE DAILY IN THE MORNING [facility] metformin ER 500 mg 24 hr tablet 2022-0 03-14 00:00: 00 Yes [id number] TAKE 2 TABLETS BY MOUTH IN THE MORNING AND TAKE 3 TABLETS IN THE EVENING( NEEDS APPOINTMEN T) [facility] JARDIANCE 25 mg Tab 3-0 03-14 00:00: 00 Yes [id number] TAKE 1 TABLET BY MOUTH ONCE DAILY IN THE MORNING [facility] metformin ER 500 mg 24 hr tablet 2022-0 03-14 00:00: 00 Yes [id number] TAKE 2 TABLETS BY MOUTH IN THE MORNING AND TAKE 3 TABLETS IN THE EVENING( NEEDS APPOINTMEN T) [facility] JARDIANCE 25 mg Tab 3-0 03-14 00:00: 00 Yes [id number] TAKE 1 TABLET BY MOUTH ONCE DAILY IN THE MORNING [facility] metformin ER 500 mg 24 hr tablet 2022-0 03-14 00:00: 00 Yes [id number] TAKE 2 TABLETS BY MOUTH IN THE MORNING AND TAKE 3 TABLETS IN THE EVENING( NEEDS APPOINTMEN T) [facility] JARDIANCE 25 mg Tab 3-0 03-14 00:00: 00 Yes [id number] TAKE 1 TABLET BY MOUTH ONCE DAILY IN THE MORNING [facility] metformin ER 500 mg 24 hr tablet 2022-0 03-14 00:00: 00 Yes [id number] TAKE 2 TABLETS BY MOUTH IN THE MORNING AND TAKE 3 TABLETS IN THE EVENING( NEEDS APPOINTMEN T) [facility] JARDIANCE 25 mg Tab 3-0 03-14 00:00: 00 Yes [id number] TAKE 1 TABLET BY MOUTH ONCE DAILY IN THE MORNING [facility] metformin ER 500 mg 24 hr tablet 2022-0 03-14 00:00: 00 Yes [id number] TAKE 2 TABLETS BY MOUTH IN THE MORNING AND TAKE 3 TABLETS IN THE EVENING( NEEDS APPOINTMEN T) [facility] JARDIANCE 25 mg Tab 3-0 03-14 00:00: 00 Yes [id number] TAKE 1 TABLET BY MOUTH ONCE DAILY IN THE MORNING [facility] metformin ER 500 mg 24 hr tablet 3-0 03-14 00:00: 00 Yes [id number] TAKE 2 TABLETS BY MOUTH IN THE MORNING AND TAKE 3 TABLETS IN THE EVENING( NEEDS APPOINTMEN T) [facility] JARDIANCE 25 mg Tab 3-0 03-14 00:00: 00 Yes [id number] TAKE 1 TABLET BY MOUTH ONCE DAILY IN THE MORNING [facility] metformin ER 500 mg 24 hr tablet 2022-0 03-14 00:00: 00 Yes [id number] TAKE 2 TABLETS BY MOUTH IN THE MORNING AND TAKE 3 TABLETS IN THE EVENING( NEEDS APPOINTMEN T) [facility] JARDIANCE 25 mg Tab 3-0 03-14 00:00: 00 Yes [id number] TAKE 1 TABLET BY MOUTH ONCE DAILY IN THE MORNING [facility] metformin ER 500 mg 24 hr tablet 2022-0 03-14 00:00: 00 Yes [id number] TAKE 2 TABLETS BY MOUTH IN THE MORNING AND TAKE 3 TABLETS IN THE EVENING( NEEDS APPOINTMEN T) [facility] JARDIANCE 25 mg Tab 2022-0 03-14 00:00: 00 Yes [id number] TAKE 1 TABLET BY MOUTH ONCE DAILY IN THE MORNING [facility] metformin ER 500 mg 24 hr tablet 2022-0 03-14 00:00: 00 Yes [id number] TAKE 2 TABLETS BY MOUTH IN THE MORNING AND TAKE 3 TABLETS IN THE EVENING( NEEDS APPOINTMEN T) [facility] JARDIANCE 25 mg Tab 3-0 03-14 00:00: 00 Yes [id number] TAKE 1 TABLET BY MOUTH ONCE DAILY IN THE MORNING [facility] metformin ER 500 mg 24 hr tablet 2022-0 03-14 00:00: 00 Yes [id number] TAKE 2 TABLETS BY MOUTH IN THE MORNING AND TAKE 3 TABLETS IN THE EVENING( NEEDS APPOINTMEN T) [facility] JARDIANCE 25 mg Tab 3-0 03-14 00:00: 00 Yes [id number] TAKE 1 TABLET BY MOUTH ONCE DAILY IN THE MORNING [facility] metformin ER 500 mg 24 hr tablet 3-0 03-14 00:00: 00 Yes [id number] TAKE 2 TABLETS BY MOUTH IN THE MORNING AND TAKE 3 TABLETS IN THE EVENING( NEEDS APPOINTMEN T) [facility] JARDIANCE 25 mg Tab 3-0 03-14 00:00: 00 Yes [id number] TAKE 1 TABLET BY MOUTH ONCE DAILY IN THE MORNING [facility] metformin ER 500 mg 24 hr tablet 2022-0 03-14 00:00: 00 Yes [id number] TAKE 2 TABLETS BY MOUTH IN THE MORNING AND TAKE 3 TABLETS IN THE EVENING( NEEDS APPOINTMEN T) [facility] JARDIANCE 25 mg Tab 2022-0 03-14 00:00: 00 Yes [id number] TAKE 1 TABLET BY MOUTH ONCE DAILY IN THE MORNING [facility] metformin ER 500 mg 24 hr tablet 2022-0 03-14 00:00: 00 Yes [id number] TAKE 2 TABLETS BY MOUTH IN THE MORNING AND TAKE 3 TABLETS IN THE EVENING( NEEDS APPOINTMEN T) [facility] JARDIANCE 25 mg Tab 2022-0 03-14 00:00: 00 Yes [id number] TAKE 1 TABLET BY MOUTH ONCE DAILY IN THE MORNING [facility] metformin ER 500 mg 24 hr tablet 2022-0 03-14 00:00: 00 Yes [id number] TAKE 2 TABLETS BY MOUTH IN THE MORNING AND TAKE 3 TABLETS IN THE EVENING( NEEDS APPOINTMEN T) [facility] JARDIANCE 25 mg Tab 2022-0 03-14 00:00: 00 Yes [id number] TAKE 1 TABLET BY MOUTH ONCE DAILY IN THE MORNING [facility] metformin ER 500 mg 24 hr tablet 2022-0 03-14 00:00: 00 Yes [id number] TAKE 2 TABLETS BY MOUTH IN THE MORNING AND TAKE 3 TABLETS IN THE EVENING( NEEDS APPOINTMEN T) [facility] JARDIANCE 25 mg Tab 2022-0 03-14 00:00: 00 Yes [id number] TAKE 1 TABLET BY MOUTH ONCE DAILY IN THE MORNING [facility] metformin ER 500 mg 24 hr tablet 2022-0 03-14 00:00: 00 Yes [id number] TAKE 2 TABLETS BY MOUTH IN THE MORNING AND TAKE 3 TABLETS IN THE EVENING( NEEDS APPOINTMEN T) [facility] JARDIANCE 25 mg Tab 3-0 03-14 00:00: 00 Yes [id number] TAKE 1 TABLET BY MOUTH ONCE DAILY IN THE MORNING [facility] metformin ER 500 mg 24 hr tablet 2022-0 03-14 00:00: 00 Yes [id number] TAKE 2 TABLETS BY MOUTH IN THE MORNING AND TAKE 3 TABLETS IN THE EVENING( NEEDS APPOINTMEN T) [facility] JARDIANCE 25 mg Tab 03-14 00:00: 00 Yes [id number] TAKE 1 TABLET BY MOUTH ONCE DAILY IN THE MORNING [facility] metformin ER 500 mg 24 hr tablet 03-14 00:00: 00 Yes [id number] TAKE 2 TABLETS BY MOUTH IN THE MORNING AND TAKE 3 TABLETS IN THE EVENING( NEEDS APPOINTMEN T) [facility] JARDIANCE 25 mg Tab 03-14 00:00: 00 Yes [id number] TAKE 1 TABLET BY MOUTH ONCE DAILY IN THE MORNING [facility] metformin ER 500 mg 24 hr tablet 03-14 00:00: 00 Yes [id number] TAKE 2 TABLETS BY MOUTH IN THE MORNING AND TAKE 3 TABLETS IN THE EVENING( NEEDS APPOINTMEN T) [facility] JARDIANCE 25 mg Tab 03-14 00:00: 00 06-11 00:00 :00 No [id number] TAKE 1 TABLET BY MOUTH ONCE DAILY IN THE MORNING [facility] metformin ER 500 mg 24 hr tablet 03-14 00:00: 00 06-11 00:00 :00 No [id number] TAKE 2 TABLETS BY MOUTH IN THE MORNING AND TAKE 3 TABLETS IN THE EVENING( NEEDS APPOINTMEN T) [facility] JARDIANCE 25 mg Tab 03-14 00:00: 00 06-11 00:00 :00 No [id number] TAKE 1 TABLET BY MOUTH ONCE DAILY IN THE MORNING [facility] metformin ER 500 mg 24 hr tablet 03-14 00:00: 00 06-11 00:00 :00 No [id number] TAKE 2 TABLETS BY MOUTH IN THE MORNING AND TAKE 3 TABLETS IN THE EVENING( NEEDS APPOINTMEN T) [facility] celecoxib 100 mg capsule 03-13 00:00: 00 Yes [id number] 100mg Take 1 capsule by mouth in the morning and 1 capsule in the evening. Take with meals. [facility] [facility] [employer] Kit 03-13 00:00: 00 Yes [id number] Use as directed [facility] tiZANidine 4 mg tablet 03-13 00:00: 00 Yes [id number] Take 1 tablet morning and afternoon, 2 tablets at bedtime [facility] gabapentin 800 mg tablet 2022-0 03-13 00:00: 00 Yes [id number] 800mg Take 1 tablet by mouth at bedtime. [facility] gabapentin 600 mg tablet 2022-0 03-13 00:00: 00 Yes [id number] 600mg Take 1 tablet by mouth in the morning and 1 tablet in the evening. [facility] celecoxib 100 mg capsule 2022-03-13 00:00: 00 Yes [id number] 100mg Take 1 capsule by mouth in the morning and 1 capsule in the evening. Take with meals. [facility] Supply Kit 03-13 00:00: 00 Yes [id number] Use as directed [facility] tiZANidine 4 mg tablet 2022-0 03-13 00:00: 00 Yes [id number] Take 1 tablet morning and afternoon, 2 tablets at bedtime [facility] gabapentin 800 mg tablet 0 03-13 00:00: 00 Yes [id number] 800mg Take 1 tablet by mouth at bedtime. [facility] gabapentin 600 mg tablet 2022-0 03-13 00:00: 00 Yes [id number] 600mg Take 1 tablet by mouth in the morning and 1 tablet in the evening. [facility] celecoxib 100 mg capsule 2022-0 03-13 00:00: 00 Yes [id number] 100mg Take 1 capsule by mouth in the morning and 1 capsule in the evening. Take with meals. [facility] Supply Kit 03-13 00:00: 00 Yes [id number] Use as directed [facility] tiZANidine 4 mg tablet 0 03-13 00:00: 00 Yes [id number] Take 1 tablet morning and afternoon, 2 tablets at bedtime [facility] gabapentin 800 mg tablet 2022-0 03-13 00:00: 00 Yes [id number] 800mg Take 1 tablet by mouth at bedtime. [facility] gabapentin 600 mg tablet 03-13 00:00: 00 Yes [id number] 600mg Take 1 tablet by mouth in the morning and 1 tablet in the evening. [facility] celecoxib 100 mg capsule 03-13 00:00: 00 Yes [id number] 100mg Take 1 capsule by mouth in the morning and 1 capsule in the evening. Take with meals. [facility] Supply Kit 03-13 00:00: 00 Yes [id number] Use as directed [facility] tiZANidine 4 mg tablet 03-13 00:00: 00 Yes [id number] Take 1 tablet morning and afternoon, 2 tablets at bedtime [facility] gabapentin 800 mg tablet 03-13 00:00: 00 Yes [id number] 800mg Take 1 tablet by mouth at bedtime. [facility] gabapentin 600 mg tablet 03-13 00:00: 00 Yes [id number] 600mg Take 1 tablet by mouth in the morning and 1 tablet in the evening. [facility] celecoxib 100 mg capsule 03-13 00:00: 00 Yes [id number] 100mg Take 1 capsule by mouth in the morning and 1 capsule in the evening. Take with meals. [facility] Supply Kit 03-13 00:00: 00 Yes [id number] Use as directed [facility] tiZANidine 4 mg tablet 03-13 00:00: 00 Yes [id number] Take 1 tablet morning and afternoon, 2 tablets at bedtime [facility] gabapentin 800 mg tablet 03-13 00:00: 00 Yes [id number] 800mg Take 1 tablet by mouth at bedtime. [facility] gabapentin 600 mg tablet 03-13 00:00: 00 Yes [id number] 600mg Take 1 tablet by mouth in the morning and 1 tablet in the evening. [facility] celecoxib 100 mg capsule 03-13 00:00: 00 Yes [id number] 100mg Take 1 capsule by mouth in the morning and 1 capsule in the evening. Take with meals. [facility] Supply Kit 03-13 00:00: 00 Yes [id number] Use as directed [facility] tiZANidine 4 mg tablet 03-13 00:00: 00 Yes [id number] Take 1 tablet morning and afternoon, 2 tablets at bedtime [facility] gabapentin 800 mg tablet 03-13 00:00: 00 Yes [id number] 800mg Take 1 tablet by mouth at bedtime. [facility] gabapentin 600 mg tablet 03-13 00:00: 00 Yes [id number] 600mg Take 1 tablet by mouth in the morning and 1 tablet in the evening. [facility] celecoxib 100 mg capsule 03-13 00:00: 00 Yes [id number] 100mg Take 1 capsule by mouth in the morning and 1 capsule in the evening. Take with meals. [facility] Supply Kit 03-13 00:00: 00 Yes [id number] Use as directed [facility] tiZANidine 4 mg tablet 03-13 00:00: 00 Yes [id number] Take 1 tablet morning and afternoon, 2 tablets at bedtime [facility] gabapentin 800 mg tablet 03-13 00:00: 00 Yes [id number] 800mg Take 1 tablet by mouth at bedtime. [facility] gabapentin 600 mg tablet 03-13 00:00: 00 Yes [id number] 600mg Take 1 tablet by mouth in the morning and 1 tablet in the evening. [facility] celecoxib 100 mg capsule 03-13 00:00: 00 Yes [id number] 100mg Take 1 capsule by mouth in the morning and 1 capsule in the evening. Take with meals. [facility] Supply Kit 03-13 00:00: 00 Yes [id number] Use as directed [facility] tiZANidine 4 mg tablet 03-13 00:00: 00 Yes [id number] Take 1 tablet morning and afternoon, 2 tablets at bedtime [facility] gabapentin 800 mg tablet 03-13 00:00: 00 Yes [id number] 800mg Take 1 tablet by mouth at bedtime. [facility] gabapentin 600 mg tablet 03-13 00:00: 00 Yes [id number] 600mg Take 1 tablet by mouth in the morning and 1 tablet in the evening. [facility] celecoxib 100 mg capsule 03-13 00:00: 00 Yes [id number] 100mg Take 1 capsule by mouth in the morning and 1 capsule in the evening. Take with meals. [facility] Supply Kit 03-13 00:00: 00 Yes [id number] Use as directed [facility] tiZANidine 4 mg tablet 03-13 00:00: 00 Yes [id number] Take 1 tablet morning and afternoon, 2 tablets at bedtime [facility] gabapentin 800 mg tablet 03-13 00:00: 00 Yes [id number] 800mg Take 1 tablet by mouth at bedtime. [facility] gabapentin 600 mg tablet 03-13 00:00: 00 Yes [id number] 600mg Take 1 tablet by mouth in the morning and 1 tablet in the evening. [facility] celecoxib 100 mg capsule 03-13 00:00: 00 Yes [id number] 100mg Take 1 capsule by mouth in the morning and 1 capsule in the evening. Take with meals. [facility] Supply Kit 03-13 00:00: 00 Yes [id number] Use as directed [facility] tiZANidine 4 mg tablet 03-13 00:00: 00 Yes [id number] Take 1 tablet morning and afternoon, 2 tablets at bedtime [facility] gabapentin 800 mg tablet 0 03-13 00:00: 00 Yes [id number] 800mg Take 1 tablet by mouth at bedtime. [facility] gabapentin 600 mg tablet 03-13 00:00: 00 Yes [id number] 600mg Take 1 tablet by mouth in the morning and 1 tablet in the evening. [facility] celecoxib 100 mg capsule 03-13 00:00: 00 Yes [id number] 100mg Take 1 capsule by mouth in the morning and 1 capsule in the evening. Take with meals. [facility] Supply Kit 03-13 00:00: 00 Yes [id number] Use as directed [facility] tiZANidine 4 mg tablet 03-13 00:00: 00 Yes [id number] Take 1 tablet morning and afternoon, 2 tablets at bedtime [facility] gabapentin 800 mg tablet 03-13 00:00: 00 Yes [id number] 800mg Take 1 tablet by mouth at bedtime. [facility] gabapentin 600 mg tablet 03-13 00:00: 00 Yes [id number] 600mg Take 1 tablet by mouth in the morning and 1 tablet in the evening. [facility] celecoxib 100 mg capsule 03-13 00:00: 00 Yes [id number] 100mg Take 1 capsule by mouth in the morning and 1 capsule in the evening. Take with meals. [facility] Supply Kit 03-13 00:00: 00 Yes [id number] Use as directed [facility] tiZANidine 4 mg tablet 03-13 00:00: 00 Yes [id number] Take 1 tablet morning and afternoon, 2 tablets at bedtime [facility] gabapentin 800 mg tablet 03-13 00:00: 00 Yes [id number] 800mg Take 1 tablet by mouth at bedtime. [facility] gabapentin 600 mg tablet 03-13 00:00: 00 Yes [id number] 600mg Take 1 tablet by mouth in the morning and 1 tablet in the evening. [facility] celecoxib 100 mg capsule 03-13 00:00: 00 Yes [id number] 100mg Take 1 capsule by mouth in the morning and 1 capsule in the evening. Take with meals. [facility] Supply Kit 03-13 00:00: 00 Yes [id number] Use as directed [facility] tiZANidine 4 mg tablet 03-13 00:00: 00 Yes [id number] Take 1 tablet morning and afternoon, 2 tablets at bedtime [facility] gabapentin 800 mg tablet 03-13 00:00: 00 Yes [id number] 800mg Take 1 tablet by mouth at bedtime. [facility] gabapentin 600 mg tablet 03-13 00:00: 00 Yes [id number] 600mg Take 1 tablet by mouth in the morning and 1 tablet in the evening. [facility] celecoxib 100 mg capsule 03-13 00:00: 00 Yes [id number] 100mg Take 1 capsule by mouth in the morning and 1 capsule in the evening. Take with meals. [facility] Supply Kit 03-13 00:00: 00 Yes [id number] Use as directed [facility] tiZANidine 4 mg tablet 03-13 00:00: 00 Yes [id number] Take 1 tablet morning and afternoon, 2 tablets at bedtime [facility] gabapentin 800 mg tablet 03-13 00:00: 00 Yes [id number] 800mg Take 1 tablet by mouth at bedtime. [facility] gabapentin 600 mg tablet 03-13 00:00: 00 Yes [id number] 600mg Take 1 tablet by mouth in the morning and 1 tablet in the evening. [facility] celecoxib 100 mg capsule 03-13 00:00: 00 Yes [id number] 100mg Take 1 capsule by mouth in the morning and 1 capsule in the evening. Take with meals. [facility] [employer] Supply Kit 03-13 00:00: 00 Yes [id number] Use as directed [facility] tiZANidine 4 mg tablet 0 03-13 00:00: 00 Yes [id number] Take 1 tablet morning and afternoon, 2 tablets at bedtime [facility] gabapentin 800 mg tablet 03-13 00:00: 00 Yes [id number] 800mg Take 1 tablet by mouth at bedtime. [facility] gabapentin 600 mg tablet 03-13 00:00: 00 Yes [id number] 600mg Take 1 tablet by mouth in the morning and 1 tablet in the evening. [facility] celecoxib 100 mg capsule 03-13 00:00: 00 Yes [id number] 100mg Take 1 capsule by mouth in the morning and 1 capsule in the evening. Take with meals. [facility] Supply Kit 03-13 00:00: 00 Yes [id number] Use as directed [facility] tiZANidine 4 mg tablet 03-13 00:00: 00 Yes [id number] Take 1 tablet morning and afternoon, 2 tablets at bedtime [facility] gabapentin 800 mg tablet 03-13 00:00: 00 Yes [id number] 800mg Take 1 tablet by mouth at bedtime. [facility] gabapentin 600 mg tablet 03-13 00:00: 00 Yes [id number] 600mg Take 1 tablet by mouth in the morning and 1 tablet in the evening. [facility] celecoxib 100 mg capsule 03-13 00:00: 00 Yes [id number] 100mg Take 1 capsule by mouth in the morning and 1 capsule in the evening. Take with meals. [facility] Supply Kit 03-13 00:00: 00 Yes [id number] Use as directed [facility] tiZANidine 4 mg tablet 03-13 00:00: 00 Yes [id number] Take 1 tablet morning and afternoon, 2 tablets at bedtime [facility] gabapentin 800 mg tablet 03-13 00:00: 00 Yes [id number] 800mg Take 1 tablet by mouth at bedtime. [facility] gabapentin 600 mg tablet 03-13 00:00: 00 Yes [id number] 600mg Take 1 tablet by mouth in the morning and 1 tablet in the evening. [facility] celecoxib 100 mg capsule 03-13 00:00: 00 Yes [id number] 100mg Take 1 capsule by mouth in the morning and 1 capsule in the evening. Take with meals. [facility] Supply Kit 03-13 00:00: 00 Yes [id number] Use as directed [facility] tiZANidine 4 mg tablet 03-13 00:00: 00 Yes [id number] Take 1 tablet morning and afternoon, 2 tablets at bedtime [facility] gabapentin 800 mg tablet 03-13 00:00: 00 Yes [id number] 800mg Take 1 tablet by mouth at bedtime. [facility] gabapentin 600 mg tablet 03-13 00:00: 00 Yes [id number] 600mg Take 1 tablet by mouth in the morning and 1 tablet in the evening. [facility] celecoxib 100 mg capsule 03-13 00:00: 00 Yes [id number] 100mg Take 1 capsule by mouth in the morning and 1 capsule in the evening. Take with meals. [facility] Supply Kit 03-13 00:00: 00 Yes [id number] Use as directed [facility] tiZANidine 4 mg tablet 03-13 00:00: 00 Yes [id number] Take 1 tablet morning and afternoon, 2 tablets at bedtime [facility] gabapentin 800 mg tablet 03-13 00:00: 00 Yes [id number] 800mg Take 1 tablet by mouth at bedtime. [facility] gabapentin 600 mg tablet 03-13 00:00: 00 Yes [id number] 600mg Take 1 tablet by mouth in the morning and 1 tablet in the evening. [facility] celecoxib 100 mg capsule 03-13 00:00: 00 Yes [id number] 100mg Take 1 capsule by mouth in the morning and 1 capsule in the evening. Take with meals. [facility] Supply Kit 03-13 00:00: 00 Yes [id number] Use as directed [facility] tiZANidine 4 mg tablet 03-13 00:00: 00 Yes [id number] Take 1 tablet morning and afternoon, 2 tablets at bedtime [facility] gabapentin 800 mg tablet 03-13 00:00: 00 Yes [id number] 800mg Take 1 tablet by mouth at bedtime. [facility] gabapentin 600 mg tablet 2022-0 03-13 00:00: 00 Yes [id number] 600mg Take 1 tablet by mouth in the morning and 1 tablet in the evening. [facility] celecoxib 100 mg capsule 03-13 00:00: 00 Yes [id number] 100mg Take 1 capsule by mouth in the morning and 1 capsule in the evening. Take with meals. [facility] Supply Kit 03-13 00:00: 00 Yes [id number] Use as directed [facility] tiZANidine 4 mg tablet 03-13 00:00: 00 Yes [id number] Take 1 tablet morning and afternoon, 2 tablets at bedtime [facility] gabapentin 800 mg tablet 03-13 00:00: 00 Yes [id number] 800mg Take 1 tablet by mouth at bedtime. [facility] gabapentin 600 mg tablet 03-13 00:00: 00 Yes [id number] 600mg Take 1 tablet by mouth in the morning and 1 tablet in the evening. [facility] celecoxib 100 mg capsule 03-13 00:00: 00 Yes [id number] 100mg Take 1 capsule by mouth in the morning and 1 capsule in the evening. Take with meals. [facility] Supply Kit 03-13 00:00: 00 Yes [id number] Use as directed [facility] tiZANidine 4 mg tablet 2022-0 03-13 00:00: 00 Yes [id number] Take 1 tablet morning and afternoon, 2 tablets at bedtime [facility] gabapentin 800 mg tablet 0 03-13 00:00: 00 Yes [id number] 800mg Take 1 tablet by mouth at bedtime. [facility] gabapentin 600 mg tablet 2022-0 03-13 00:00: 00 Yes [id number] 600mg Take 1 tablet by mouth in the morning and 1 tablet in the evening. [facility] celecoxib 100 mg capsule 03-13 00:00: 00 Yes [id number] 100mg Take 1 capsule by mouth in the morning and 1 capsule in the evening. Take with meals. [facility] Supply Kit 03-13 00:00: 00 Yes [id number] Use as directed [facility] tiZANidine 4 mg tablet 03-13 00:00: 00 Yes [id number] Take 1 tablet morning and afternoon, 2 tablets at bedtime [facility] gabapentin 800 mg tablet 03-13 00:00: 00 Yes [id number] 800mg Take 1 tablet by mouth at bedtime. [facility] gabapentin 600 mg tablet 03-13 00:00: 00 Yes [id number] 600mg Take 1 tablet by mouth in the morning and 1 tablet in the evening. [facility] celecoxib 100 mg capsule 03-13 00:00: 00 Yes [id number] 100mg Take 1 capsule by mouth in the morning and 1 capsule in the evening. Take with meals. [facility] Supply Kit 03-13 00:00: 00 Yes [id number] Use as directed [facility] tiZANidine 4 mg tablet 03-13 00:00: 00 Yes [id number] Take 1 tablet morning and afternoon, 2 tablets at bedtime [facility] gabapentin 800 mg tablet 03-13 00:00: 00 Yes [id number] 800mg Take 1 tablet by mouth at bedtime. [facility] gabapentin 600 mg tablet 03-13 00:00: 00 Yes [id number] 600mg Take 1 tablet by mouth in the morning and 1 tablet in the evening. [facility] celecoxib 100 mg capsule 03-13 00:00: 00 Yes [id number] 100mg Take 1 capsule by mouth in the morning and 1 capsule in the evening. Take with meals. [facility] Supply Kit 03-13 00:00: 00 Yes [id number] Use as directed [facility] tiZANidine 4 mg tablet 03-13 00:00: 00 Yes [id number] Take 1 tablet morning and afternoon, 2 tablets at bedtime [facility] gabapentin 800 mg tablet 2022-0 03-13 00:00: 00 Yes [id number] 800mg Take 1 tablet by mouth at bedtime. [facility] gabapentin 600 mg tablet 2022-03-13 00:00: 00 Yes [id number] 600mg Take 1 tablet by mouth in the morning and 1 tablet in the evening. [facility] celecoxib 100 mg capsule 03-13 00:00: 00 Yes [id number] 100mg Take 1 capsule by mouth in the morning and 1 capsule in the evening. Take with meals. [facility] Supply Kit 03-13 00:00: 00 Yes [id number] Use as directed [facility] tiZANidine 4 mg tablet 03-13 00:00: 00 Yes [id number] Take 1 tablet morning and afternoon, 2 tablets at bedtime [facility] gabapentin 800 mg tablet 03-13 00:00: 00 Yes [id number] 800mg Take 1 tablet by mouth at bedtime. [facility] gabapentin 600 mg tablet 0 03-13 00:00: 00 Yes [id number] 600mg Take 1 tablet by mouth in the morning and 1 tablet in the evening. [facility] celecoxib 100 mg capsule 03-13 00:00: 00 Yes [id number] 100mg Take 1 capsule by mouth in the morning and 1 capsule in the evening. Take with meals. [facility] Supply Kit 03-13 00:00: 00 Yes [id number] Use as directed [facility] tiZANidine 4 mg tablet 0 03-13 00:00: 00 Yes [id number] Take 1 tablet morning and afternoon, 2 tablets at bedtime [facility] gabapentin 800 mg tablet 0 03-13 00:00: 00 Yes [id number] 800mg Take 1 tablet by mouth at bedtime. [facility] gabapentin 600 mg tablet 2022-0 03-13 00:00: 00 Yes [id number] 600mg Take 1 tablet by mouth in the morning and 1 tablet in the evening. [facility] celecoxib 100 mg capsule 2022-03-13 00:00: 00 Yes [id number] 100mg Take 1 capsule by mouth in the morning and 1 capsule in the evening. Take with meals. [facility] Supply Kit 03-13 00:00: 00 Yes [id number] Use as directed [facility] tiZANidine 4 mg tablet 03-13 00:00: 00 Yes [id number] Take 1 tablet morning and afternoon, 2 tablets at bedtime [facility] gabapentin 800 mg tablet 03-13 00:00: 00 Yes [id number] 800mg Take 1 tablet by mouth at bedtime. [facility] gabapentin 600 mg tablet 03-13 00:00: 00 Yes [id number] 600mg Take 1 tablet by mouth in the morning and 1 tablet in the evening. [facility] celecoxib 100 mg capsule 03-13 00:00: 00 Yes [id number] 100mg Take 1 capsule by mouth in the morning and 1 capsule in the evening. Take with meals. [facility] Supply Kit 03-13 00:00: 00 Yes [id number] Use as directed [facility] tiZANidine 4 mg tablet 03-13 00:00: 00 Yes [id number] Take 1 tablet morning and afternoon, 2 tablets at bedtime [facility] gabapentin 800 mg tablet 03-13 00:00: 00 Yes [id number] 800mg Take 1 tablet by mouth at bedtime. [facility] gabapentin 600 mg tablet 0 03-13 00:00: 00 Yes [id number] 600mg Take 1 tablet by mouth in the morning and 1 tablet in the evening. [facility] celecoxib 100 mg capsule 2022-03-13 00:00: 00 Yes [id number] 100mg Take 1 capsule by mouth in the morning and 1 capsule in the evening. Take with meals. [facility] Supply Kit 03-13 00:00: 00 Yes [id number] Use as directed [facility] tiZANidine 4 mg tablet 0 03-13 00:00: 00 Yes [id number] Take 1 tablet morning and afternoon, 2 tablets at bedtime [facility] gabapentin 800 mg tablet 03-13 00:00: 00 Yes [id number] 800mg Take 1 tablet by mouth at bedtime. [facility] gabapentin 600 mg tablet 03-13 00:00: 00 Yes [id number] 600mg Take 1 tablet by mouth in the morning and 1 tablet in the evening. [facility] celecoxib 100 mg capsule 03-13 00:00: 00 Yes [id number] 100mg Take 1 capsule by mouth in the morning and 1 capsule in the evening. Take with meals. [facility] Supply Kit 03-13 00:00: 00 Yes [id number] Use as directed [facility] tiZANidine 4 mg tablet 03-13 00:00: 00 Yes [id number] Take 1 tablet morning and afternoon, 2 tablets at bedtime [facility] gabapentin 800 mg tablet 03-13 00:00: 00 Yes [id number] 800mg Take 1 tablet by mouth at bedtime. [facility] gabapentin 600 mg tablet 03-13 00:00: 00 Yes [id number] 600mg Take 1 tablet by mouth in the morning and 1 tablet in the evening. [facility] celecoxib 100 mg capsule 03-13 00:00: 00 Yes [id number] 100mg Take 1 capsule by mouth in the morning and 1 capsule in the evening. Take with meals. [facility] Supply Kit 03-13 00:00: 00 Yes [id number] Use as directed [facility] tiZANidine 4 mg tablet 03-13 00:00: 00 Yes [id number] Take 1 tablet morning and afternoon, 2 tablets at bedtime [facility] gabapentin 800 mg tablet 03-13 00:00: 00 Yes [id number] 800mg Take 1 tablet by mouth at bedtime. [facility] gabapentin 600 mg tablet 03-13 00:00: 00 Yes [id number] 600mg Take 1 tablet by mouth in the morning and 1 tablet in the evening. [facility] celecoxib 100 mg capsule 03-13 00:00: 00 Yes [id number] 100mg Take 1 capsule by mouth in the morning and 1 capsule in the evening. Take with meals. [facility] Supply Kit 03-13 00:00: 00 Yes [id number] Use as directed [facility] tiZANidine 4 mg tablet 03-13 00:00: 00 Yes [id number] Take 1 tablet morning and afternoon, 2 tablets at bedtime [facility] gabapentin 800 mg tablet 03-13 00:00: 00 Yes [id number] 800mg Take 1 tablet by mouth at bedtime. [facility] gabapentin 600 mg tablet 03-13 00:00: 00 Yes [id number] 600mg Take 1 tablet by mouth in the morning and 1 tablet in the evening. [facility] celecoxib 100 mg capsule 03-13 00:00: 00 Yes [id number] 100mg Take 1 capsule by mouth in the morning and 1 capsule in the evening. Take with meals. [facility] Supply Kit 03-13 00:00: 00 Yes [id number] Use as directed [facility] tiZANidine 4 mg tablet 0 03-13 00:00: 00 Yes [id number] Take 1 tablet morning and afternoon, 2 tablets at bedtime [facility] gabapentin 800 mg tablet 2022-0 03-13 00:00: 00 Yes [id number] 800mg Take 1 tablet by mouth at bedtime. [facility] gabapentin 600 mg tablet 0 03-13 00:00: 00 Yes [id number] 600mg Take 1 tablet by mouth in the morning and 1 tablet in the evening. [facility] celecoxib 100 mg capsule 0 03-13 00:00: 00 Yes [id number] 100mg Take 1 capsule by mouth in the morning and 1 capsule in the evening. Take with meals. [facility] Supply Kit 03-13 00:00: 00 Yes [id number] Use as directed [facility] tiZANidine 4 mg tablet 03-13 00:00: 00 Yes [id number] Take 1 tablet morning and afternoon, 2 tablets at bedtime [facility] gabapentin 800 mg tablet 03-13 00:00: 00 Yes [id number] 800mg Take 1 tablet by mouth at bedtime. [facility] gabapentin 600 mg tablet 03-13 00:00: 00 Yes [id number] 600mg Take 1 tablet by mouth in the morning and 1 tablet in the evening. [facility] celecoxib 100 mg capsule 03-13 00:00: 00 Yes [id number] 100mg Take 1 capsule by mouth in the morning and 1 capsule in the evening. Take with meals. [facility] Supply Kit 03-13 00:00: 00 Yes [id number] Use as directed [facility] tiZANidine 4 mg tablet 03-13 00:00: 00 Yes [id number] Take 1 tablet morning and afternoon, 2 tablets at bedtime [facility] gabapentin 800 mg tablet 03-13 00:00: 00 Yes [id number] 800mg Take 1 tablet by mouth at bedtime. [facility] gabapentin 600 mg tablet 03-13 00:00: 00 Yes [id number] 600mg Take 1 tablet by mouth in the morning and 1 tablet in the evening. [facility] celecoxib 100 mg capsule 0 03-13 00:00: 00 Yes [id number] 100mg Take 1 capsule by mouth in the morning and 1 capsule in the evening. Take with meals. [facility] Supply Kit 03-13 00:00: 00 Yes [id number] Use as directed [facility] tiZANidine 4 mg tablet 0 03-13 00:00: 00 Yes [id number] Take 1 tablet morning and afternoon, 2 tablets at bedtime [facility] gabapentin 800 mg tablet 03-13 00:00: 00 Yes [id number] 800mg Take 1 tablet by mouth at bedtime. [facility] celecoxib 100 mg capsule 03-13 00:00: 00 Yes [id number] 100mg Take 1 capsule by mouth in the morning and 1 capsule in the evening. Take with meals. [facility] Supply Kit 03-13 00:00: 00 Yes [id number] Use as directed [facility] tiZANidine 4 mg tablet 0 03-13 00:00: 00 Yes [id number] Take 1 tablet morning and afternoon, 2 tablets at bedtime [facility] gabapentin 800 mg tablet 03-13 00:00: 00 Yes [id number] 800mg Take 1 tablet by mouth at bedtime. [facility] celecoxib 100 mg capsule 03-13 00:00: 00 Yes [id number] 100mg Take 1 capsule by mouth in the morning and 1 capsule in the evening. Take with meals. [facility] Supply Kit 03-13 00:00: 00 Yes [id number] Use as directed [facility] tiZANidine 4 mg tablet 03-13 00:00: 00 Yes [id number] Take 1 tablet morning and afternoon, 2 tablets at bedtime [facility] gabapentin 800 mg tablet 03-13 00:00: 00 Yes [id number] 800mg Take 1 tablet by mouth at bedtime. [facility] celecoxib 100 mg capsule 0 03-13 00:00: 00 Yes [id number] 100mg Take 1 capsule by mouth in the morning and 1 capsule in the evening. Take with meals. [facility] Supply Kit 03-13 00:00: 00 Yes [id number] Use as directed [facility] tiZANidine 4 mg tablet 2022-0 03-13 00:00: 00 Yes [id number] Take 1 tablet morning and afternoon, 2 tablets at bedtime [facility] gabapentin 800 mg tablet 03-13 00:00: 00 Yes [id number] 800mg Take 1 tablet by mouth at bedtime. [facility] celecoxib 100 mg capsule 03-13 00:00: 00 Yes [id number] 100mg Take 1 capsule by mouth in the morning and 1 capsule in the evening. Take with meals. [facility] Supply Kit 03-13 00:00: 00 Yes [id number] Use as directed [facility] tiZANidine 4 mg tablet 03-13 00:00: 00 Yes [id number] Take 1 tablet morning and afternoon, 2 tablets at bedtime [facility] gabapentin 800 mg tablet 03-13 00:00: 00 Yes [id number] 800mg Take 1 tablet by mouth at bedtime. [facility] celecoxib 100 mg capsule 03-13 00:00: 00 Yes [id number] 100mg Take 1 capsule by mouth in the morning and 1 capsule in the evening. Take with meals. [facility] Supply Kit 03-13 00:00: 00 Yes [id number] Use as directed [facility] tiZANidine 4 mg tablet 03-13 00:00: 00 Yes [id number] Take 1 tablet morning and afternoon, 2 tablets at bedtime [facility] gabapentin 800 mg tablet 03-13 00:00: 00 Yes [id number] 800mg Take 1 tablet by mouth at bedtime. [facility] celecoxib 100 mg capsule 03-13 00:00: 00 Yes [id number] 100mg Take 1 capsule by mouth in the morning and 1 capsule in the evening. Take with meals. [facility] Kit 03-13 00:00: 00 Yes [id number] Use as directed [facility] tiZANidine 4 mg tablet 03-13 00:00: 00 Yes [id number] Take 1 tablet morning and afternoon, 2 tablets at bedtime [facility] gabapentin 800 mg tablet 03-13 00:00: 00 Yes [id number] 800mg Take 1 tablet by mouth at bedtime. [facility] celecoxib 100 mg capsule 03-13 00:00: 00 Yes [id number] 100mg Take 1 capsule by mouth in the morning and 1 capsule in the evening. Take with meals. [facility] Supply Kit 03-13 00:00: 00 Yes [id number] Use as directed [facility] tiZANidine 4 mg tablet 03-13 00:00: 00 Yes [id number] Take 1 tablet morning and afternoon, 2 tablets at bedtime [facility] gabapentin 800 mg tablet 03-13 00:00: 00 Yes [id number] 800mg Take 1 tablet by mouth at bedtime. [facility] celecoxib 100 mg capsule 03-13 00:00: 00 Yes [id number] 100mg Take 1 capsule by mouth in the morning and 1 capsule in the evening. Take with meals. [facility] Kit 03-13 00:00: 00 Yes [id number] Use as directed [facility] tiZANidine 4 mg tablet 03-13 00:00: 00 Yes [id number] Take 1 tablet morning and afternoon, 2 tablets at bedtime [facility] gabapentin 800 mg tablet 03-13 00:00: 00 Yes [id number] 800mg Take 1 tablet by mouth at bedtime. [facility] celecoxib 100 mg capsule 0 03-13 00:00: 00 Yes [id number] 100mg Take 1 capsule by mouth in the morning and 1 capsule in the evening. Take with meals. [facility] Kit 03-13 00:00: 00 Yes [id number] Use as directed [facility] tiZANidine 4 mg tablet 2022-0 03-13 00:00: 00 Yes [id number] Take 1 tablet morning and afternoon, 2 tablets at bedtime [facility] gabapentin 800 mg tablet 03-13 00:00: 00 Yes [id number] 800mg Take 1 tablet by mouth at bedtime. [facility] celecoxib 100 mg capsule 03-13 00:00: 00 Yes [id number] 100mg Take 1 capsule by mouth in the morning and 1 capsule in the evening. Take with meals. [facility] Kit 03-13 00:00: 00 Yes [id number] Use as directed [facility] tiZANidine 4 mg tablet 03-13 00:00: 00 Yes [id number] Take 1 tablet morning and afternoon, 2 tablets at bedtime [facility] gabapentin 800 mg tablet 03-13 00:00: 00 Yes [id number] 800mg Take 1 tablet by mouth at bedtime. [facility] Kit 03-13 00:00: 00 Yes [id number] Use as directed [facility] tiZANidine 4 mg tablet 03-13 00:00: 00 Yes [id number] Take 1 tablet morning and afternoon, 2 tablets at bedtime [facility] gabapentin 800 mg tablet 03-13 00:00: 00 Yes [id number] 800mg Take 1 tablet by mouth at bedtime. [facility] Kit 03-13 00:00: 00 Yes [id number] Use as directed [facility] tiZANidine 4 mg tablet 03-13 00:00: 00 Yes [id number] Take 1 tablet morning and afternoon, 2 tablets at bedtime [facility] gabapentin 800 mg tablet 03-13 00:00: 00 Yes [id number] 800mg Take 1 tablet by mouth at bedtime. [facility] Kit 03-13 00:00: 00 Yes [id number] Use as directed [facility] tiZANidine 4 mg tablet 03-13 00:00: 00 Yes [id number] Take 1 tablet morning and afternoon, 2 tablets at bedtime [facility] gabapentin 800 mg tablet 03-13 00:00: 00 Yes [id number] 800mg Take 1 tablet by mouth at bedtime. [facility] Kit 03-13 00:00: 00 Yes [id number] Use as directed [facility] tiZANidine 4 mg tablet 03-13 00:00: 00 Yes [id number] Take 1 tablet morning and afternoon, 2 tablets at bedtime [facility] gabapentin 800 mg tablet 03-13 00:00: 00 Yes [id number] 800mg Take 1 tablet by mouth at bedtime. [facility] Kit 03-13 00:00: 00 Yes [id number] Use as directed [facility] tiZANidine 4 mg tablet 03-13 00:00: 00 Yes [id number] Take 1 tablet morning and afternoon, 2 tablets at bedtime [facility] gabapentin 800 mg tablet 03-13 00:00: 00 Yes [id number] 800mg Take 1 tablet by mouth at bedtime. [facility] Kit 03-13 00:00: 00 Yes [id number] Use as directed [facility] tiZANidine 4 mg tablet 03-13 00:00: 00 Yes [id number] Take 1 tablet morning and afternoon, 2 tablets at bedtime [facility] gabapentin 800 mg tablet 03-13 00:00: 00 Yes [id number] 800mg Take 1 tablet by mouth at bedtime. [facility] Kit 03-13 00:00: 00 Yes [id number] Use as directed [facility] tiZANidine 4 mg tablet 03-13 00:00: 00 Yes [id number] Take 1 tablet morning and afternoon, 2 tablets at bedtime [facility] gabapentin 800 mg tablet 03-13 00:00: 00 Yes [id number] 800mg Take 1 tablet by mouth at bedtime. [facility] Kit 03-13 00:00: 00 Yes [id number] Use as directed [facility] tiZANidine 4 mg tablet 03-13 00:00: 00 Yes [id number] Take 1 tablet morning and afternoon, 2 tablets at bedtime [facility] gabapentin 800 mg tablet 03-13 00:00: 00 Yes [id number] 800mg Take 1 tablet by mouth at bedtime. [facility] Kit 03-13 00:00: 00 Yes [id number] Use as directed [facility] tiZANidine 4 mg tablet 03-13 00:00: 00 Yes [id number] Take 1 tablet morning and afternoon, 2 tablets at bedtime [facility] gabapentin 800 mg tablet 03-13 00:00: 00 Yes [id number] 800mg Take 1 tablet by mouth at bedtime. [facility] Kit 03-13 00:00: 00 Yes [id number] Use as directed [facility] tiZANidine 4 mg tablet 03-13 00:00: 00 Yes [id number] Take 1 tablet morning and afternoon, 2 tablets at bedtime [facility] gabapentin 800 mg tablet 03-13 00:00: 00 Yes [id number] 800mg Take 1 tablet by mouth at bedtime. [facility] Kit 03-13 00:00: 00 Yes [id number] Use as directed [facility] tiZANidine 4 mg tablet 03-13 00:00: 00 Yes [id number] Take 1 tablet morning and afternoon, 2 tablets at bedtime [facility] gabapentin 800 mg tablet 03-13 00:00: 00 Yes [id number] 800mg Take 1 tablet by mouth at bedtime. [facility] Kit 03-13 00:00: 00 Yes [id number] Use as directed [facility] tiZANidine 4 mg tablet 03-13 00:00: 00 Yes [id number] Take 1 tablet morning and afternoon, 2 tablets at bedtime [facility] gabapentin 800 mg tablet 03-13 00:00: 00 Yes [id number] 800mg Take 1 tablet by mouth at bedtime. [facility] Kit 03-13 00:00: 00 Yes [id number] Use as directed [facility] tiZANidine 4 mg tablet 03-13 00:00: 00 Yes [id number] Take 1 tablet morning and afternoon, 2 tablets at bedtime [facility] gabapentin 800 mg tablet 03-13 00:00: 00 Yes [id number] 800mg Take 1 tablet by mouth at bedtime. [facility] Kit 03-13 00:00: 00 Yes [id number] Use as directed [facility] tiZANidine 4 mg tablet 03-13 00:00: 00 Yes [id number] Take 1 tablet morning and afternoon, 2 tablets at bedtime [facility] gabapentin 800 mg tablet 03-13 00:00: 00 Yes [id number] 800mg Take 1 tablet by mouth at bedtime. [facility] Kit 03-13 00:00: 00 Yes [id number] Use as directed [facility] tiZANidine 4 mg tablet 03-13 00:00: 00 Yes [id number] Take 1 tablet morning and afternoon, 2 tablets at bedtime [facility] gabapentin 800 mg tablet 03-13 00:00: 00 Yes [id number] 800mg Take 1 tablet by mouth at bedtime. [facility] Kit 03-13 00:00: 00 Yes [id number] Use as directed [facility] tiZANidine 4 mg tablet 03-13 00:00: 00 Yes [id number] Take 1 tablet morning and afternoon, 2 tablets at bedtime [facility] gabapentin 800 mg tablet 03-13 00:00: 00 Yes [id number] 800mg Take 1 tablet by mouth at bedtime. [facility] Kit 03-13 00:00: 00 Yes [id number] Use as directed [facility] tiZANidine 4 mg tablet 03-13 00:00: 00 Yes [id number] Take 1 tablet morning and afternoon, 2 tablets at bedtime [facility] gabapentin 800 mg tablet 03-13 00:00: 00 Yes [id number] 800mg Take 1 tablet by mouth at bedtime. [facility] Supply Kit 03-13 00:00: 00 Yes [id number] Use as directed [facility] tiZANidine 4 mg tablet 03-13 00:00: 00 Yes [id number] Take 1 tablet morning and afternoon, 2 tablets at bedtime [facility] gabapentin 800 mg tablet 03-13 00:00: 00 Yes [id number] 800mg Take 1 tablet by mouth at bedtime. [facility] Kit 03-13 00:00: 00 Yes [id number] Use as directed [facility] tiZANidine 4 mg tablet 03-13 00:00: 00 Yes [id number] Take 1 tablet morning and afternoon, 2 tablets at bedtime [facility] gabapentin 800 mg tablet 03-13 00:00: 00 Yes [id number] 800mg Take 1 tablet by mouth at bedtime. [facility] Kit 03-13 00:00: 00 Yes [id number] Use as directed [facility] tiZANidine 4 mg tablet 03-13 00:00: 00 Yes [id number] Take 1 tablet morning and afternoon, 2 tablets at bedtime [facility] gabapentin 800 mg tablet 03-13 00:00: 00 Yes [id number] 800mg Take 1 tablet by mouth at bedtime. [facility] Kit 03-13 00:00: 00 Yes [id number] Use as directed [facility] tiZANidine 4 mg tablet 03-13 00:00: 00 Yes [id number] Take 1 tablet morning and afternoon, 2 tablets at bedtime [facility] gabapentin 800 mg tablet 03-13 00:00: 00 Yes [id number] 800mg Take 1 tablet by mouth at bedtime. [facility] Kit 03-13 00:00: 00 Yes [id number] Use as directed [facility] tiZANidine 4 mg tablet 03-13 00:00: 00 Yes [id number] Take 1 tablet morning and afternoon, 2 tablets at bedtime [facility] gabapentin 800 mg tablet 03-13 00:00: 00 Yes [id number] 800mg Take 1 tablet by mouth at bedtime. [facility] Supply Kit 03-13 00:00: 00 Yes [id number] Use as directed [facility] tiZANidine 4 mg tablet 03-13 00:00: 00 Yes [id number] Take 1 tablet morning and afternoon, 2 tablets at bedtime [facility] gabapentin 800 mg tablet 03-13 00:00: 00 Yes [id number] 800mg Take 1 tablet by mouth at bedtime. [facility] Kit 03-13 00:00: 00 Yes [id number] Use as directed [facility] tiZANidine 4 mg tablet 03-13 00:00: 00 Yes [id number] Take 1 tablet morning and afternoon, 2 tablets at bedtime [facility] gabapentin 800 mg tablet 03-13 00:00: 00 Yes [id number] 800mg Take 1 tablet by mouth at bedtime. [facility] Kit 03-13 00:00: 00 Yes [id number] Use as directed [facility] tiZANidine 4 mg tablet 03-13 00:00: 00 Yes [id number] Take 1 tablet morning and afternoon, 2 tablets at bedtime [facility] gabapentin 800 mg tablet 03-13 00:00: 00 Yes [id number] 800mg Take 1 tablet by mouth at bedtime. [facility] Supply Kit 03-13 00:00: 00 Yes [id number] Use as directed [facility] tiZANidine 4 mg tablet 03-13 00:00: 00 Yes [id number] Take 1 tablet morning and afternoon, 2 tablets at bedtime [facility] gabapentin 800 mg tablet 03-13 00:00: 00 Yes [id number] 800mg Take 1 tablet by mouth at bedtime. [facility] Kit 03-13 00:00: 00 Yes [id number] Use as directed [facility] tiZANidine 4 mg tablet 03-13 00:00: 00 Yes [id number] Take 1 tablet morning and afternoon, 2 tablets at bedtime [facility] gabapentin 800 mg tablet 03-13 00:00: 00 Yes [id number] 800mg Take 1 tablet by mouth at bedtime. [facility] Supply Kit 03-13 00:00: 00 Yes [id number] Use as directed [facility] tiZANidine 4 mg tablet 03-13 00:00: 00 Yes [id number] Take 1 tablet morning and afternoon, 2 tablets at bedtime [facility] gabapentin 800 mg tablet 03-13 00:00: 00 Yes [id number] 800mg Take 1 tablet by mouth at bedtime. [facility] Supply Kit 03-13 00:00: 00 Yes [id number] Use as directed [facility] tiZANidine 4 mg tablet 03-13 00:00: 00 Yes [id number] Take 1 tablet morning and afternoon, 2 tablets at bedtime [facility] gabapentin 800 mg tablet 03-13 00:00: 00 Yes [id number] 800mg Take 1 tablet by mouth at bedtime. [facility] Kit 03-13 00:00: 00 Yes [id number] Use as directed [facility] tiZANidine 4 mg tablet 03-13 00:00: 00 Yes [id number] Take 1 tablet morning and afternoon, 2 tablets at bedtime [facility] gabapentin 800 mg tablet 03-13 00:00: 00 Yes [id number] 800mg Take 1 tablet by mouth at bedtime. [facility] celecoxib 100 mg capsule 03-13 00:00: 00 08-24 00:00 :00 No [id number] 100mg Take 1 capsule by mouth in the morning and 1 capsule in the evening. Take with meals. [facility] gabapentin 600 mg tablet 03-13 00:00: 00 06-15 00:00 :00 No [id number] 600mg Take 1 tablet by mouth in the morning and 1 tablet in the evening. [facility] gabapentin 600 mg tablet 03-13 00:00: 00 06-15 00:00 :00 No [id number] 600mg Take 1 tablet by mouth in the morning and 1 tablet in the evening. [facility] gabapentin 600 mg tablet 03-13 00:00: 00 06-15 00:00 :00 No [id number] 600mg Take 1 tablet by mouth in the morning and 1 tablet in the evening. [facility] NuvaRing 0.12-0.015 mg/24 hr vaginal insert 03-08 00:00: 00 Yes [id number] 1{each} Insert 1 Each into vagina once every month. Insert vaginally and leave in place for 3 consecutiv e weeks, then remove for 1 week. [facility] NuvaRing 0.12-0.015 mg/24 hr vaginal insert 03-08 00:00: 00 Yes [id number] 1{each} Insert 1 Each into vagina once every month. Insert vaginally and leave in place for 3 consecutiv e weeks, then remove for 1 week. [facility] NuvaRing 0.12-0.015 mg/24 hr vaginal insert 0 03-08 00:00: 00 Yes [id number] 1{each} Insert 1 Each into vagina once every month. Insert vaginally and leave in place for 3 consecutiv e weeks, then remove for 1 week. [facility] NuvaRing 0.12-0.015 mg/24 hr vaginal insert 0 03-08 00:00: 00 Yes [id number] 1{each} Insert 1 Each into vagina once every month. Insert vaginally and leave in place for 3 consecutiv e weeks, then remove for 1 week. [facility] NuvaRing 0.12-0.015 mg/24 hr vaginal insert 0 03-08 00:00: 00 Yes [id number] 1{each} Insert 1 Each into vagina once every month. Insert vaginally and leave in place for 3 consecutiv e weeks, then remove for 1 week. [facility] NuvaRing 0.12-0.015 mg/24 hr vaginal insert 0 03-08 00:00: 00 Yes [id number] 1{each} Insert 1 Each into vagina once every month. Insert vaginally and leave in place for 3 consecutiv e weeks, then remove for 1 week. [facility] NuvaRing 0.12-0.015 mg/24 hr vaginal insert 0 03-08 00:00: 00 Yes [id number] 1{each} Insert 1 Each into vagina once every month. Insert vaginally and leave in place for 3 consecutiv e weeks, then remove for 1 week. [facility] NuvaRing 0.12-0.015 mg/24 hr vaginal insert 0 03-08 00:00: 00 Yes [id number] 1{each} Insert 1 Each into vagina once every month. Insert vaginally and leave in place for 3 consecutiv e weeks, then remove for 1 week. [facility] NuvaRing 0.12-0.015 mg/24 hr vaginal insert 0 03-08 00:00: 00 Yes [id number] 1{each} Insert 1 Each into vagina once every month. Insert vaginally and leave in place for 3 consecutiv e weeks, then remove for 1 week. [facility] NuvaRing 0.12-0.015 mg/24 hr vaginal insert 0 03-08 00:00: 00 Yes [id number] 1{each} Insert 1 Each into vagina once every month. Insert vaginally and leave in place for 3 consecutiv e weeks, then remove for 1 week. [facility] NuvaRing 0.12-0.015 mg/24 hr vaginal insert 0 03-08 00:00: 00 Yes [id number] 1{each} Insert 1 Each into vagina once every month. Insert vaginally and leave in place for 3 consecutiv e weeks, then remove for 1 week. [facility] NuvaRing 0.12-0.015 mg/24 hr vaginal insert 0 03-08 00:00: 00 Yes [id number] 1{each} Insert 1 Each into vagina once every month. Insert vaginally and leave in place for 3 consecutiv e weeks, then remove for 1 week. [facility] NuvaRing 0.12-0.015 mg/24 hr vaginal insert 0 03-08 00:00: 00 Yes [id number] 1{each} Insert 1 Each into vagina once every month. Insert vaginally and leave in place for 3 consecutiv e weeks, then remove for 1 week. [facility] NuvaRing 0.12-0.015 mg/24 hr vaginal insert 0 03-08 00:00: 00 Yes [id number] 1{each} Insert 1 Each into vagina once every month. Insert vaginally and leave in place for 3 consecutiv e weeks, then remove for 1 week. [facility] NuvaRing 0.12-0.015 mg/24 hr vaginal insert 0 03-08 00:00: 00 Yes [id number] 1{each} Insert 1 Each into vagina once every month. Insert vaginally and leave in place for 3 consecutiv e weeks, then remove for 1 week. [facility] NuvaRing 0.12-0.015 mg/24 hr vaginal insert 0 03-08 00:00: 00 Yes [id number] 1{each} Insert 1 Each into vagina once every month. Insert vaginally and leave in place for 3 consecutiv e weeks, then remove for 1 week. [facility] NuvaRing 0.12-0.015 mg/24 hr vaginal insert 0 03-08 00:00: 00 Yes [id number] 1{each} Insert 1 Each into vagina once every month. Insert vaginally and leave in place for 3 consecutiv e weeks, then remove for 1 week. [facility] NuvaRing 0.12-0.015 mg/24 hr vaginal insert 0 03-08 00:00: 00 Yes [id number] 1{each} Insert 1 Each into vagina once every month. Insert vaginally and leave in place for 3 consecutiv e weeks, then remove for 1 week. [facility] NuvaRing 0.12-0.015 mg/24 hr vaginal insert 03-08 00:00: 00 Yes [id number] 1{each} Insert 1 Each into vagina once every month. Insert vaginally and leave in place for 3 consecutiv e weeks, then remove for 1 week. [facility] NuvaRing 0.12-0.015 mg/24 hr vaginal insert 0 03-08 00:00: 00 Yes [id number] 1{each} Insert 1 Each into vagina once every month. Insert vaginally and leave in place for 3 consecutiv e weeks, then remove for 1 week. [facility] NuvaRing 0.12-0.015 mg/24 hr vaginal insert 0 03-08 00:00: 00 Yes [id number] 1{each} Insert 1 Each into vagina once every month. Insert vaginally and leave in place for 3 consecutiv e weeks, then remove for 1 week. [facility] NuvaRing 0.12-0.015 mg/24 hr vaginal insert 0 03-08 00:00: 00 Yes [id number] 1{each} Insert 1 Each into vagina once every month. Insert vaginally and leave in place for 3 consecutiv e weeks, then remove for 1 week. [facility] NuvaRing 0.12-0.015 mg/24 hr vaginal insert 0 03-08 00:00: 00 Yes [id number] 1{each} Insert 1 Each into vagina once every month. Insert vaginally and leave in place for 3 consecutiv e weeks, then remove for 1 week. [facility] NuvaRing 0.12-0.015 mg/24 hr vaginal insert 0 03-08 00:00: 00 Yes [id number] 1{each} Insert 1 Each into vagina once every month. Insert vaginally and leave in place for 3 consecutiv e weeks, then remove for 1 week. [facility] NuvaRing 0.12-0.015 mg/24 hr vaginal insert 0 03-08 00:00: 00 Yes [id number] 1{each} Insert 1 Each into vagina once every month. Insert vaginally and leave in place for 3 consecutiv e weeks, then remove for 1 week. [facility] NuvaRing 0.12-0.015 mg/24 hr vaginal insert 0 03-08 00:00: 00 Yes [id number] 1{each} Insert 1 Each into vagina once every month. Insert vaginally and leave in place for 3 consecutiv e weeks, then remove for 1 week. [facility] NuvaRing 0.12-0.015 mg/24 hr vaginal insert 03-08 00:00: 00 Yes [id number] 1{each} Insert 1 Each into vagina once every month. Insert vaginally and leave in place for 3 consecutiv e weeks, then remove for 1 week. [facility] NuvaRing 0.12-0.015 mg/24 hr vaginal insert 0 03-08 00:00: 00 Yes [id number] 1{each} Insert 1 Each into vagina once every month. Insert vaginally and leave in place for 3 consecutiv e weeks, then remove for 1 week. [facility] NuvaRing 0.12-0.015 mg/24 hr vaginal insert 0 03-08 00:00: 00 Yes [id number] 1{each} Insert 1 Each into vagina once every month. Insert vaginally and leave in place for 3 consecutiv e weeks, then remove for 1 week. [facility] NuvaRing 0.12-0.015 mg/24 hr vaginal insert 0 03-08 00:00: 00 Yes [id number] 1{each} Insert 1 Each into vagina once every month. Insert vaginally and leave in place for 3 consecutiv e weeks, then remove for 1 week. [facility] NuvaRing 0.12-0.015 mg/24 hr vaginal insert 0 03-08 00:00: 00 Yes [id number] 1{each} Insert 1 Each into vagina once every month. Insert vaginally and leave in place for 3 consecutiv e weeks, then remove for 1 week. [facility] NuvaRing 0.12-0.015 mg/24 hr vaginal insert 0 03-08 00:00: 00 Yes [id number] 1{each} Insert 1 Each into vagina once every month. Insert vaginally and leave in place for 3 consecutiv e weeks, then remove for 1 week. [facility] NuvaRing 0.12-0.015 mg/24 hr vaginal insert 0 03-08 00:00: 00 Yes [id number] 1{each} Insert 1 Each into vagina once every month. Insert vaginally and leave in place for 3 consecutiv e weeks, then remove for 1 week. [facility] NuvaRing 0.12-0.015 mg/24 hr vaginal insert 0 03-08 00:00: 00 Yes [id number] 1{each} Insert 1 Each into vagina once every month. Insert vaginally and leave in place for 3 consecutiv e weeks, then remove for 1 week. [facility] NuvaRing 0.12-0.015 mg/24 hr vaginal insert 0 03-08 00:00: 00 Yes [id number] 1{each} Insert 1 Each into vagina once every month. Insert vaginally and leave in place for 3 consecutiv e weeks, then remove for 1 week. [facility] NuvaRing 0.12-0.015 mg/24 hr vaginal insert 0 03-08 00:00: 00 Yes [id number] 1{each} Insert 1 Each into vagina once every month. Insert vaginally and leave in place for 3 consecutiv e weeks, then remove for 1 week. [facility] NuvaRing 0.12-0.015 mg/24 hr vaginal insert 0 03-08 00:00: 00 Yes [id number] 1{each} Insert 1 Each into vagina once every month. Insert vaginally and leave in place for 3 consecutiv e weeks, then remove for 1 week. [facility] ity [facility] NuvaRing 0.12-0.015 mg/24 hr vaginal insert 0 03-08 00:00: 00 Yes [id number] 1{each} Insert 1 Each into vagina once every month. Insert vaginally and leave in place for 3 consecutiv e weeks, then remove for 1 week. [facility] ity [facility] NuvaRing 0.12-0.015 mg/24 hr vaginal insert 0 03-08 00:00: 00 Yes [id number] 1{each} Insert 1 Each into vagina once every month. Insert vaginally and leave in place for 3 consecutiv e weeks, then remove for 1 week. [facility] NuvaRing 0.12-0.015 mg/24 hr vaginal insert 0 03-08 00:00: 00 Yes [id number] 1{each} Insert 1 Each into vagina once every month. Insert vaginally and leave in place for 3 consecutiv e weeks, then remove for 1 week. [facility] NuvaRing 0.12-0.015 mg/24 hr vaginal insert 0 03-08 00:00: 00 Yes [id number] 1{each} Insert 1 Each into vagina once every month. Insert vaginally and leave in place for 3 consecutiv e weeks, then remove for 1 week. [facility] NuvaRing 0.12-0.015 mg/24 hr vaginal insert 0 03-08 00:00: 00 Yes [id number] 1{each} Insert 1 Each into vagina once every month. Insert vaginally and leave in place for 3 consecutiv e weeks, then remove for 1 week. [facility] NuvaRing 0.12-0.015 mg/24 hr vaginal insert 0 03-08 00:00: 00 Yes [id number] 1{each} Insert 1 Each into vagina once every month. Insert vaginally and leave in place for 3 consecutiv e weeks, then remove for 1 week. [facility] NuvaRing 0.12-0.015 mg/24 hr vaginal insert 0 03-08 00:00: 00 Yes [id number] 1{each} Insert 1 Each into vagina once every month. Insert vaginally and leave in place for 3 consecutiv e weeks, then remove for 1 week. [facility] NuvaRing 0.12-0.015 mg/24 hr vaginal insert 0 03-08 00:00: 00 Yes [id number] 1{each} Insert 1 Each into vagina once every month. Insert vaginally and leave in place for 3 consecutiv e weeks, then remove for 1 week. [facility] NuvaRing 0.12-0.015 mg/24 hr vaginal insert 0 03-08 00:00: 00 Yes [id number] 1{each} Insert 1 Each into vagina once every month. Insert vaginally and leave in place for 3 consecutiv e weeks, then remove for 1 week. [facility] NuvaRing 0.12-0.015 mg/24 hr vaginal insert 0 03-08 00:00: 00 Yes [id number] 1{each} Insert 1 Each into vagina once every month. Insert vaginally and leave in place for 3 consecutiv e weeks, then remove for 1 week. [facility] NuvaRing 0.12-0.015 mg/24 hr vaginal insert 0 03-08 00:00: 00 Yes [id number] 1{each} Insert 1 Each into vagina once every month. Insert vaginally and leave in place for 3 consecutiv e weeks, then remove for 1 week. [facility] NuvaRing 0.12-0.015 mg/24 hr vaginal insert 0 03-08 00:00: 00 Yes [id number] 1{each} Insert 1 Each into vagina once every month. Insert vaginally and leave in place for 3 consecutiv e weeks, then remove for 1 week. [facility] NuvaRing 0.12-0.015 mg/24 hr vaginal insert 2022-0 03-08 00:00: 00 Yes [id number] 1{each} Insert 1 Each into vagina once every month. Insert vaginally and leave in place for 3 consecutiv e weeks, then remove for 1 week. [facility] NuvaRing 0.12-0.015 mg/24 hr vaginal insert 03-08 00:00: 00 Yes [id number] 1{each} Insert 1 Each into vagina once every month. Insert vaginally and leave in place for 3 consecutiv e weeks, then remove for 1 week. [facility] NuvaRing 0.12-0.015 mg/24 hr vaginal insert 03-08 00:00: 00 Yes [id number] 1{each} Insert 1 Each into vagina once every month. Insert vaginally and leave in place for 3 consecutiv e weeks, then remove for 1 week. [facility] NuvaRing 0.12-0.015 mg/24 hr vaginal insert 03-08 00:00: 00 09-10 00:00 :00 No [id number] 1{each} Insert 1 Each into vagina once every month. Insert vaginally and leave in place for 3 consecutiv e weeks, then remove for 1 week. [facility] NuvaRing 0.12-0.015 mg/24 hr vaginal insert 03-08 00:00: 00 09-10 00:00 :00 No [id number] 1{each} Insert 1 Each into vagina once every month. Insert vaginally and leave in place for 3 consecutiv e weeks, then remove for 1 week. [facility] NuvaRing 0.12-0.015 mg/24 hr vaginal insert 03-08 00:00: 00 09-10 00:00 :00 No [id number] 1{each} Insert 1 Each into vagina once every month. Insert vaginally and leave in place for 3 consecutiv e weeks, then remove for 1 week. [facility] NuvaRing 0.12-0.015 mg/24 hr vaginal insert 03-08 00:00: 00 09-10 00:00 :00 No [id number] 1{each} Insert 1 Each into vagina once every month. Insert vaginally and leave in place for 3 consecutiv e weeks, then remove for 1 week. [facility] NuvaRing 0.12-0.015 mg/24 hr vaginal insert 03-08 00:00: 00 09-10 00:00 :00 No [id number] 1{each} Insert 1 Each into vagina once every month. Insert vaginally and leave in place for 3 consecutiv e weeks, then remove for 1 week. [facility] NuvaRing 0.12-0.015 mg/24 hr vaginal insert 03-08 00:00: 00 09-10 00:00 :00 No [id number] 1{each} Insert 1 Each into vagina once every month. Insert vaginally and leave in place for 3 consecutiv e weeks, then remove for 1 week. [facility] proMETHazin e 12.5 mg tablet 03-06 00:00: 00 Yes [id number] TAKE 2 TABLETS BY MOUTH EVERY 6 HOURS NEEDED FOR NAUSEA AND VOMITING [facility] meclizine 25 mg tablet 03-06 00:00: 00 Yes [id number] TAKE 1 TABLET BY MOUTH EVERY 8 HOURS NEEDED [facility] escitalopra m oxalate (LEXAPRO) 20 mg tablet 03-06 00:00: 00 Yes [id number] 20mg Take 1 tablet by mouth in the morning. [facility] atorvastati n 20 mg tablet 03-06 00:00: 00 Yes [id number] 20mg Take 1 tablet by mouth at bedtime. [facility] semaglutide (OZEMPIC) 2 mg/dose (8 mg/3 mL) PnIj 03-06 00:00: 00 Yes [id number] INJECT 2 MG UNDER THE SKIN WEEKLY [facility] proMETHazin e 12.5 mg tablet 03-06 00:00: 00 Yes [id number] TAKE 2 TABLETS BY MOUTH EVERY 6 HOURS NEEDED FOR NAUSEA AND VOMITING [facility] meclizine 25 mg tablet 03-06 00:00: 00 Yes [id number] TAKE 1 TABLET BY MOUTH EVERY 8 HOURS NEEDED [facility] escitalopra m oxalate (LEXAPRO) 20 mg tablet 03-06 00:00: 00 Yes [id number] 20mg Take 1 tablet by mouth in the morning. [facility] atorvastati n 20 mg tablet 03-06 00:00: 00 Yes [id number] 20mg Take 1 tablet by mouth at bedtime. [facility] semaglutide (OZEMPIC) 2 mg/dose (8 mg/3 mL) PnIj 03-06 00:00: 00 Yes [id number] INJECT 2 MG UNDER THE SKIN WEEKLY [facility] proMETHazin e 12.5 mg tablet 03-06 00:00: 00 Yes [id number] TAKE 2 TABLETS BY MOUTH EVERY 6 HOURS NEEDED FOR NAUSEA AND VOMITING [facility] meclizine 25 mg tablet 03-06 00:00: 00 Yes [id number] TAKE 1 TABLET BY MOUTH EVERY 8 HOURS NEEDED [facility] escitalopra m oxalate (LEXAPRO) 20 mg tablet 03-06 00:00: 00 Yes [id number] 20mg Take 1 tablet by mouth in the morning. [facility] atorvastati n 20 mg tablet 03-06 00:00: 00 Yes [id number] 20mg Take 1 tablet by mouth at bedtime. [facility] semaglutide (OZEMPIC) 2 mg/dose (8 mg/3 mL) PnIj 03-06 00:00: 00 Yes [id number] INJECT 2 MG UNDER THE SKIN WEEKLY [facility] proMETHazin e 12.5 mg tablet 03-06 00:00: 00 Yes [id number] TAKE 2 TABLETS BY MOUTH EVERY 6 HOURS NEEDED FOR NAUSEA AND VOMITING [facility] meclizine 25 mg tablet 03-06 00:00: 00 Yes [id number] TAKE 1 TABLET BY MOUTH EVERY 8 HOURS NEEDED [facility] escitalopra m oxalate (LEXAPRO) 20 mg tablet 03-06 00:00: 00 Yes [id number] 20mg Take 1 tablet by mouth in the morning. [facility] atorvastati n 20 mg tablet 03-06 00:00: 00 Yes [id number] 20mg Take 1 tablet by mouth at bedtime. [facility] semaglutide (OZEMPIC) 2 mg/dose (8 mg/3 mL) PnIj 03-06 00:00: 00 Yes [id number] INJECT 2 MG UNDER THE SKIN WEEKLY [facility] proMETHazin e 12.5 mg tablet 03-06 00:00: 00 Yes [id number] TAKE 2 TABLETS BY MOUTH EVERY 6 HOURS NEEDED FOR NAUSEA AND VOMITING [facility] meclizine 25 mg tablet 03-06 00:00: 00 Yes [id number] TAKE 1 TABLET BY MOUTH EVERY 8 HOURS NEEDED [facility] escitalopra m oxalate (LEXAPRO) 20 mg tablet 03-06 00:00: 00 Yes [id number] 20mg Take 1 tablet by mouth in the morning. [facility] atorvastati n 20 mg tablet 03-06 00:00: 00 Yes [id number] 20mg Take 1 tablet by mouth at bedtime. [facility] semaglutide (OZEMPIC) 2 mg/dose (8 mg/3 mL) Ij 03-06 00:00: 00 Yes [id number] INJECT 2 MG UNDER THE SKIN WEEKLY [facility] proMETHazin e 12.5 mg tablet 03-06 00:00: 00 Yes [id number] TAKE 2 TABLETS BY MOUTH EVERY 6 HOURS NEEDED FOR NAUSEA AND VOMITING [facility] meclizine 25 mg tablet 03-06 00:00: 00 Yes [id number] TAKE 1 TABLET BY MOUTH EVERY 8 HOURS NEEDED [facility] escitalopra m oxalate (LEXAPRO) 20 mg tablet 03-06 00:00: 00 Yes [id number] 20mg Take 1 tablet by mouth in the morning. [facility] atorvastati n 20 mg tablet 03-06 00:00: 00 Yes [id number] 20mg Take 1 tablet by mouth at bedtime. [facility] semaglutide (OZEMPIC) 2 mg/dose (8 mg/3 mL) PnIj 03-06 00:00: 00 Yes [id number] INJECT 2 MG UNDER THE SKIN WEEKLY [facility] proMETHazin e 12.5 mg tablet 03-06 00:00: 00 Yes [id number] TAKE 2 TABLETS BY MOUTH EVERY 6 HOURS NEEDED FOR NAUSEA AND VOMITING [facility] meclizine 25 mg tablet 03-06 00:00: 00 Yes [id number] TAKE 1 TABLET BY MOUTH EVERY 8 HOURS NEEDED [facility] escitalopra m oxalate (LEXAPRO) 20 mg tablet 03-06 00:00: 00 Yes [id number] 20mg Take 1 tablet by mouth in the morning. [facility] atorvastati n 20 mg tablet 03-06 00:00: 00 Yes [id number] 20mg Take 1 tablet by mouth at bedtime. [facility] semaglutide (OZEMPIC) 2 mg/dose (8 mg/3 mL) PnIj 03-06 00:00: 00 Yes [id number] INJECT 2 MG UNDER THE SKIN WEEKLY [facility] proMETHazin e 12.5 mg tablet 03-06 00:00: 00 Yes [id number] TAKE 2 TABLETS BY MOUTH EVERY 6 HOURS NEEDED FOR NAUSEA AND VOMITING [facility] meclizine 25 mg tablet 03-06 00:00: 00 Yes [id number] TAKE 1 TABLET BY MOUTH EVERY 8 HOURS NEEDED [facility] escitalopra m oxalate (LEXAPRO) 20 mg tablet 03-06 00:00: 00 Yes [id number] 20mg Take 1 tablet by mouth in the morning. [facility] atorvastati n 20 mg tablet 03-06 00:00: 00 Yes [id number] 20mg Take 1 tablet by mouth at bedtime. [facility] semaglutide (OZEMPIC) 2 mg/dose (8 mg/3 mL) PnIj 03-06 00:00: 00 Yes [id number] INJECT 2 MG UNDER THE SKIN WEEKLY [facility] proMETHazin e 12.5 mg tablet 03-06 00:00: 00 Yes [id number] TAKE 2 TABLETS BY MOUTH EVERY 6 HOURS NEEDED FOR NAUSEA AND VOMITING [facility] meclizine 25 mg tablet 03-06 00:00: 00 Yes [id number] TAKE 1 TABLET BY MOUTH EVERY 8 HOURS NEEDED [facility] escitalopra m oxalate (LEXAPRO) 20 mg tablet 03-06 00:00: 00 Yes [id number] 20mg Take 1 tablet by mouth in the morning. [facility] atorvastati n 20 mg tablet 03-06 00:00: 00 Yes [id number] 20mg Take 1 tablet by mouth at bedtime. [facility] semaglutide (OZEMPIC) 2 mg/dose (8 mg/3 mL) PnIj 03-06 00:00: 00 Yes [id number] INJECT 2 MG UNDER THE SKIN WEEKLY [facility] proMETHazin e 12.5 mg tablet 03-06 00:00: 00 Yes [id number] TAKE 2 TABLETS BY MOUTH EVERY 6 HOURS NEEDED FOR NAUSEA AND VOMITING [facility] meclizine 25 mg tablet 03-06 00:00: 00 Yes [id number] TAKE 1 TABLET BY MOUTH EVERY 8 HOURS NEEDED [facility] escitalopra m oxalate (LEXAPRO) 20 mg tablet 03-06 00:00: 00 Yes [id number] 20mg Take 1 tablet by mouth in the morning. [facility] atorvastati n 20 mg tablet 03-06 00:00: 00 Yes [id number] 20mg Take 1 tablet by mouth at bedtime. [facility] semaglutide (OZEMPIC) 2 mg/dose (8 mg/3 mL) PnIj 03-06 00:00: 00 Yes [id number] INJECT 2 MG UNDER THE SKIN WEEKLY [facility] proMETHazin e 12.5 mg tablet 03-06 00:00: 00 Yes [id number] TAKE 2 TABLETS BY MOUTH EVERY 6 HOURS NEEDED FOR NAUSEA AND VOMITING [facility] meclizine 25 mg tablet 03-06 00:00: 00 Yes [id number] TAKE 1 TABLET BY MOUTH EVERY 8 HOURS NEEDED [facility] escitalopra m oxalate (LEXAPRO) 20 mg tablet 03-06 00:00: 00 Yes [id number] 20mg Take 1 tablet by mouth in the morning. [facility] atorvastati n 20 mg tablet 03-06 00:00: 00 Yes [id number] 20mg Take 1 tablet by mouth at bedtime. [facility] semaglutide (OZEMPIC) 2 mg/dose (8 mg/3 mL) PnIj 03-06 00:00: 00 Yes [id number] INJECT 2 MG UNDER THE SKIN WEEKLY [facility] proMETHazin e 12.5 mg tablet 03-06 00:00: 00 Yes [id number] TAKE 2 TABLETS BY MOUTH EVERY 6 HOURS NEEDED FOR NAUSEA AND VOMITING [facility] meclizine 25 mg tablet 03-06 00:00: 00 Yes [id number] TAKE 1 TABLET BY MOUTH EVERY 8 HOURS NEEDED [facility] escitalopra m oxalate (LEXAPRO) 20 mg tablet 03-06 00:00: 00 Yes [id number] 20mg Take 1 tablet by mouth in the morning. [facility] atorvastati n 20 mg tablet 03-06 00:00: 00 Yes [id number] 20mg Take 1 tablet by mouth at bedtime. [facility] semaglutide (OZEMPIC) 2 mg/dose (8 mg/3 mL) PnIj 03-06 00:00: 00 Yes [id number] INJECT 2 MG UNDER THE SKIN WEEKLY [facility] proMETHazin e 12.5 mg tablet 03-06 00:00: 00 Yes [id number] TAKE 2 TABLETS BY MOUTH EVERY 6 HOURS NEEDED FOR NAUSEA AND VOMITING [facility] meclizine 25 mg tablet 03-06 00:00: 00 Yes [id number] TAKE 1 TABLET BY MOUTH EVERY 8 HOURS NEEDED [facility] escitalopra m oxalate (LEXAPRO) 20 mg tablet 03-06 00:00: 00 Yes [id number] 20mg Take 1 tablet by mouth in the morning. [facility] atorvastati n 20 mg tablet 03-06 00:00: 00 Yes [id number] 20mg Take 1 tablet by mouth at bedtime. [facility] semaglutide (OZEMPIC) 2 mg/dose (8 mg/3 mL) PnIj 03-06 00:00: 00 Yes [id number] INJECT 2 MG UNDER THE SKIN WEEKLY [facility] proMETHazin e 12.5 mg tablet 03-06 00:00: 00 Yes [id number] TAKE 2 TABLETS BY MOUTH EVERY 6 HOURS NEEDED FOR NAUSEA AND VOMITING [facility] meclizine 25 mg tablet 03-06 00:00: 00 Yes [id number] TAKE 1 TABLET BY MOUTH EVERY 8 HOURS NEEDED [facility] escitalopra m oxalate (LEXAPRO) 20 mg tablet 03-06 00:00: 00 Yes [id number] 20mg Take 1 tablet by mouth in the morning. [facility] atorvastati n 20 mg tablet 03-06 00:00: 00 Yes [id number] 20mg Take 1 tablet by mouth at bedtime. [facility] proMETHazin e 12.5 mg tablet 03-06 00:00: 00 Yes [id number] TAKE 2 TABLETS BY MOUTH EVERY 6 HOURS NEEDED FOR NAUSEA AND VOMITING [facility] meclizine 25 mg tablet 03-06 00:00: 00 Yes [id number] TAKE 1 TABLET BY MOUTH EVERY 8 HOURS NEEDED [facility] escitalopra m oxalate (LEXAPRO) 20 mg tablet 03-06 00:00: 00 Yes [id number] 20mg Take 1 tablet by mouth in the morning. [facility] atorvastati n 20 mg tablet 03-06 00:00: 00 Yes [id number] 20mg Take 1 tablet by mouth at bedtime. [facility] proMETHazin e 12.5 mg tablet 03-06 00:00: 00 Yes [id number] TAKE 2 TABLETS BY MOUTH EVERY 6 HOURS NEEDED FOR NAUSEA AND VOMITING [facility] meclizine 25 mg tablet 0 03-06 00:00: 00 Yes [id number] TAKE 1 TABLET BY MOUTH EVERY 8 HOURS NEEDED [facility] escitalopra m oxalate (LEXAPRO) 20 mg tablet 03-06 00:00: 00 Yes [id number] 20mg Take 1 tablet by mouth in the morning. [facility] atorvastati n 20 mg tablet 03-06 00:00: 00 Yes [id number] 20mg Take 1 tablet by mouth at bedtime. [facility] proMETHazin e 12.5 mg tablet 03-06 00:00: 00 Yes [id number] TAKE 2 TABLETS BY MOUTH EVERY 6 HOURS NEEDED FOR NAUSEA AND VOMITING [facility] meclizine 25 mg tablet 03-06 00:00: 00 Yes [id number] TAKE 1 TABLET BY MOUTH EVERY 8 HOURS NEEDED [facility] escitalopra m oxalate (LEXAPRO) 20 mg tablet 03-06 00:00: 00 Yes [id number] 20mg Take 1 tablet by mouth in the morning. [facility] atorvastati n 20 mg tablet 03-06 00:00: 00 Yes [id number] 20mg Take 1 tablet by mouth at bedtime. [facility] proMETHazin e 12.5 mg tablet 03-06 00:00: 00 Yes [id number] TAKE 2 TABLETS BY MOUTH EVERY 6 HOURS NEEDED FOR NAUSEA AND VOMITING [facility] meclizine 25 mg tablet 03-06 00:00: 00 Yes [id number] TAKE 1 TABLET BY MOUTH EVERY 8 HOURS NEEDED [facility] escitalopra m oxalate (LEXAPRO) 20 mg tablet 03-06 00:00: 00 Yes [id number] 20mg Take 1 tablet by mouth in the morning. [facility] atorvastati n 20 mg tablet 03-06 00:00: 00 Yes [id number] 20mg Take 1 tablet by mouth at bedtime. [facility] meclizine 25 mg tablet 03-06 00:00: 00 Yes [id number] TAKE 1 TABLET BY MOUTH EVERY 8 HOURS NEEDED [facility] escitalopra m oxalate (LEXAPRO) 20 mg tablet 03-06 00:00: 00 Yes [id number] 20mg Take 1 tablet by mouth in the morning. [facility] atorvastati n 20 mg tablet 03-06 00:00: 00 Yes [id number] 20mg Take 1 tablet by mouth at bedtime. [facility] meclizine 25 mg tablet 03-06 00:00: 00 Yes [id number] TAKE 1 TABLET BY MOUTH EVERY 8 HOURS NEEDED [facility] escitalopra m oxalate (LEXAPRO) 20 mg tablet 03-06 00:00: 00 Yes [id number] 20mg Take 1 tablet by mouth in the morning. [facility] atorvastati n 20 mg tablet 03-06 00:00: 00 Yes [id number] 20mg Take 1 tablet by mouth at bedtime. [facility] meclizine 25 mg tablet 03-06 00:00: 00 Yes [id number] TAKE 1 TABLET BY MOUTH EVERY 8 HOURS NEEDED [facility] escitalopra m oxalate (LEXAPRO) 20 mg tablet 03-06 00:00: 00 Yes [id number] 20mg Take 1 tablet by mouth in the morning. [facility] atorvastati n 20 mg tablet 03-06 00:00: 00 Yes [id number] 20mg Take 1 tablet by mouth at bedtime. [facility] meclizine 25 mg tablet 03-06 00:00: 00 Yes [id number] TAKE 1 TABLET BY MOUTH EVERY 8 HOURS NEEDED [facility] escitalopra m oxalate (LEXAPRO) 20 mg tablet 03-06 00:00: 00 Yes [id number] 20mg Take 1 tablet by mouth in the morning. [facility] atorvastati n 20 mg tablet 03-06 00:00: 00 Yes [id number] 20mg Take 1 tablet by mouth at bedtime. [facility] meclizine 25 mg tablet 03-06 00:00: 00 Yes [id number] TAKE 1 TABLET BY MOUTH EVERY 8 HOURS NEEDED [facility] escitalopra m oxalate (LEXAPRO) 20 mg tablet 03-06 00:00: 00 Yes [id number] 20mg Take 1 tablet by mouth in the morning. [facility] atorvastati n 20 mg tablet 03-06 00:00: 00 Yes [id number] 20mg Take 1 tablet by mouth at bedtime. [facility] meclizine 25 mg tablet 0 03-06 00:00: 00 Yes [id number] TAKE 1 TABLET BY MOUTH EVERY 8 HOURS NEEDED [facility] escitalopra m oxalate (LEXAPRO) 20 mg tablet 03-06 00:00: 00 Yes [id number] 20mg Take 1 tablet by mouth in the morning. [facility] atorvastati n 20 mg tablet 0 03-06 00:00: 00 Yes [id number] 20mg Take 1 tablet by mouth at bedtime. [facility] meclizine 25 mg tablet 0 03-06 00:00: 00 Yes [id number] TAKE 1 TABLET BY MOUTH EVERY 8 HOURS NEEDED [facility] escitalopra m oxalate (LEXAPRO) 20 mg tablet 0 03-06 00:00: 00 Yes [id number] 20mg Take 1 tablet by mouth in the morning. [facility] atorvastati n 20 mg tablet 0 03-06 00:00: 00 Yes [id number] 20mg Take 1 tablet by mouth at bedtime. [facility] meclizine 25 mg tablet 03-06 00:00: 00 Yes [id number] TAKE 1 TABLET BY MOUTH EVERY 8 HOURS NEEDED [facility] escitalopra m oxalate (LEXAPRO) 20 mg tablet 03-06 00:00: 00 Yes [id number] 20mg Take 1 tablet by mouth in the morning. [facility] atorvastati n 20 mg tablet 03-06 00:00: 00 Yes [id number] 20mg Take 1 tablet by mouth at bedtime. [facility] meclizine 25 mg tablet 03-06 00:00: 00 Yes [id number] TAKE 1 TABLET BY MOUTH EVERY 8 HOURS NEEDED [facility] escitalopra m oxalate (LEXAPRO) 20 mg tablet 03-06 00:00: 00 Yes [id number] 20mg Take 1 tablet by mouth in the morning. [facility] atorvastati n 20 mg tablet 03-06 00:00: 00 Yes [id number] 20mg Take 1 tablet by mouth at bedtime. [facility] meclizine 25 mg tablet 03-06 00:00: 00 Yes [id number] TAKE 1 TABLET BY MOUTH EVERY 8 HOURS NEEDED [facility] escitalopra m oxalate (LEXAPRO) 20 mg tablet 03-06 00:00: 00 Yes [id number] 20mg Take 1 tablet by mouth in the morning. [facility] atorvastati n 20 mg tablet 03-06 00:00: 00 Yes [id number] 20mg Take 1 tablet by mouth at bedtime. [facility] meclizine 25 mg tablet 03-06 00:00: 00 Yes [id number] TAKE 1 TABLET BY MOUTH EVERY 8 HOURS NEEDED [facility] escitalopra m oxalate (LEXAPRO) 20 mg tablet 03-06 00:00: 00 Yes [id number] 20mg Take 1 tablet by mouth in the morning. [facility] atorvastati n 20 mg tablet 03-06 00:00: 00 Yes [id number] 20mg Take 1 tablet by mouth at bedtime. [facility] meclizine 25 mg tablet 2022-0 03-06 00:00: 00 Yes [id number] TAKE 1 TABLET BY MOUTH EVERY 8 HOURS NEEDED [facility] escitalopra m oxalate (LEXAPRO) 20 mg tablet 2022-0 03-06 00:00: 00 Yes [id number] 20mg Take 1 tablet by mouth in the morning. [facility] atorvastati n 20 mg tablet 2022-0 03-06 00:00: 00 Yes [id number] 20mg Take 1 tablet by mouth at bedtime. [facility] meclizine 25 mg tablet 0 03-06 00:00: 00 Yes [id number] TAKE 1 TABLET BY MOUTH EVERY 8 HOURS NEEDED [facility] escitalopra m oxalate (LEXAPRO) 20 mg tablet 0 03-06 00:00: 00 Yes [id number] 20mg Take 1 tablet by mouth in the morning. [facility] atorvastati n 20 mg tablet 0 03-06 00:00: 00 Yes [id number] 20mg Take 1 tablet by mouth at bedtime. [facility] meclizine 25 mg tablet 0 03-06 00:00: 00 Yes [id number] TAKE 1 TABLET BY MOUTH EVERY 8 HOURS NEEDED [facility] escitalopra m oxalate (LEXAPRO) 20 mg tablet 0 03-06 00:00: 00 Yes [id number] 20mg Take 1 tablet by mouth in the morning. [facility] atorvastati n 20 mg tablet 0 03-06 00:00: 00 Yes [id number] 20mg Take 1 tablet by mouth at bedtime. [facility] meclizine 25 mg tablet 0 03-06 00:00: 00 Yes [id number] TAKE 1 TABLET BY MOUTH EVERY 8 HOURS NEEDED [facility] escitalopra m oxalate (LEXAPRO) 20 mg tablet 2022-0 03-06 00:00: 00 Yes [id number] 20mg Take 1 tablet by mouth in the morning. [facility] atorvastati n 20 mg tablet 03-06 00:00: 00 Yes [id number] 20mg Take 1 tablet by mouth at bedtime. [facility] meclizine 25 mg tablet 03-06 00:00: 00 Yes [id number] TAKE 1 TABLET BY MOUTH EVERY 8 HOURS NEEDED [facility] escitalopra m oxalate (LEXAPRO) 20 mg tablet 03-06 00:00: 00 Yes [id number] 20mg Take 1 tablet by mouth in the morning. [facility] atorvastati n 20 mg tablet 03-06 00:00: 00 Yes [id number] 20mg Take 1 tablet by mouth at bedtime. [facility] escitalopra m oxalate (LEXAPRO) 20 mg tablet 03-06 00:00: 00 Yes [id number] 20mg Take 1 tablet by mouth in the morning. [facility] escitalopra m oxalate (LEXAPRO) 20 mg tablet 03-06 00:00: 00 Yes [id number] 20mg Take 1 tablet by mouth in the morning. [facility] escitalopra m oxalate (LEXAPRO) 20 mg tablet 03-06 00:00: 00 Yes [id number] 20mg Take 1 tablet by mouth in the morning. [facility] escitalopra m oxalate (LEXAPRO) 20 mg tablet 0 03-06 00:00: 00 Yes [id number] 20mg Take 1 tablet by mouth in the morning. [facility] escitalopra m oxalate (LEXAPRO) 20 mg tablet 0 03-06 00:00: 00 Yes [id number] 20mg Take 1 tablet by mouth in the morning. [facility] escitalopra m oxalate (LEXAPRO) 20 mg tablet 0 03-06 00:00: 00 Yes [id number] 20mg Take 1 tablet by mouth in the morning. [facility] escitalopra m oxalate (LEXAPRO) 20 mg tablet 0 03-06 00:00: 00 Yes [id number] 20mg Take 1 tablet by mouth in the morning. [facility] escitalopra m oxalate (LEXAPRO) 20 mg tablet 2022-0 7-25 00:00: 00 Yes [id number] 20mg Take 1 tablet by mouth in the morning. [facility] escitalopra m oxalate (LEXAPRO) 20 mg tablet 2022-0 7-25 00:00: 00 Yes [id number] 20mg Take 1 tablet by mouth in the morning. [facility] escitalopra m oxalate (LEXAPRO) 20 mg tablet 2022-0 725 00:00: 00 Yes [id number] 20mg Take 1 tablet by mouth in the morning. [facility] escitalopra m oxalate (LEXAPRO) 20 mg tablet 2022-0 - 00:00: 00 Yes [id number] 20mg Take 1 tablet by mouth in the morning. [facility] escitalopra m oxalate (LEXAPRO) 20 mg tablet 2022-0 03-06 00:00: 00 Yes [id number] 20mg Take 1 tablet by mouth in the morning. [facility] escitalopra m oxalate (LEXAPRO) 20 mg tablet 2022-0 25 00:00: 00 Yes [id number] 20mg Take 1 tablet by mouth in the morning. [facility] escitalopra m oxalate (LEXAPRO) 20 mg tablet 2022-0 25 00:00: 00 Yes [id number] 20mg Take 1 tablet by mouth in the morning. [facility] escitalopra m oxalate (LEXAPRO) 20 mg tablet 2022-0 25 00:00: 00 Yes [id number] 20mg Take 1 tablet by mouth in the morning. [facility] escitalopra m oxalate (LEXAPRO) 20 mg tablet 2022-0 7-25 00:00: 00 Yes [id number] 20mg Take 1 tablet by mouth in the morning. [facility] escitalopra m oxalate (LEXAPRO) 20 mg tablet 3-0 7-25 00:00: 00 Yes [id number] 20mg Take 1 tablet by mouth in the morning. [facility] escitalopra m oxalate (LEXAPRO) 20 mg tablet 0 03-06 00:00: 00 Yes [id number] 20mg Take 1 tablet by mouth in the morning. [facility] escitalopra m oxalate (LEXAPRO) 20 mg tablet 0 03-06 00:00: 00 Yes [id number] 20mg Take 1 tablet by mouth in the morning. [facility] escitalopra m oxalate (LEXAPRO) 20 mg tablet 0 03-06 00:00: 00 Yes [id number] 20mg Take 1 tablet by mouth in the morning. [facility] escitalopra m oxalate (LEXAPRO) 20 mg tablet 0 03-06 00:00: 00 Yes [id number] 20mg Take 1 tablet by mouth in the morning. [facility] escitalopra m oxalate (LEXAPRO) 20 mg tablet 2022-0 03-06 00:00: 00 Yes [id number] 20mg Take 1 tablet by mouth in the morning. [facility] escitalopra m oxalate (LEXAPRO) 20 mg tablet 0 03-06 00:00: 00 Yes [id number] 20mg Take 1 tablet by mouth in the morning. [facility] escitalopra m oxalate (LEXAPRO) 20 mg tablet 0 03-06 00:00: 00 Yes [id number] 20mg Take 1 tablet by mouth in the morning. [facility] escitalopra m oxalate (LEXAPRO) 20 mg tablet 2022-0 03-06 00:00: 00 Yes [id number] 20mg Take 1 tablet by mouth in the morning. [facility] escitalopra m oxalate (LEXAPRO) 20 mg tablet 0 03-06 00:00: 00 Yes [id number] 20mg Take 1 tablet by mouth in the morning. [facility] escitalopra m oxalate (LEXAPRO) 20 mg tablet 2022-0 03-06 00:00: 00 Yes [id number] 20mg Take 1 tablet by mouth in the morning. [facility] escitalopra m oxalate (LEXAPRO) 20 mg tablet 2022-0 7-25 00:00: 00 Yes [id number] 20mg Take 1 tablet by mouth in the morning. [facility] escitalopra m oxalate (LEXAPRO) 20 mg tablet 2022-0 03-06 00:00: 00 Yes [id number] 20mg Take 1 tablet by mouth in the morning. [facility] escitalopra m oxalate (LEXAPRO) 20 mg tablet 2022-0 03-06 00:00: 00 Yes [id number] 20mg Take 1 tablet by mouth in the morning. [facility] escitalopra m oxalate (LEXAPRO) 20 mg tablet 2022-0 03-06 00:00: 00 Yes [id number] 20mg Take 1 tablet by mouth in the morning. [facility] escitalopra m oxalate (LEXAPRO) 20 mg tablet 2022-0 03-06 00:00: 00 Yes [id number] 20mg Take 1 tablet by mouth in the morning. [facility] escitalopra m oxalate (LEXAPRO) 20 mg tablet 0 03-06 00:00: 00 Yes [id number] 20mg Take 1 tablet by mouth in the morning. [facility] escitalopra m oxalate (LEXAPRO) 20 mg tablet 2022-0 03-06 00:00: 00 Yes [id number] 20mg Take 1 tablet by mouth in the morning. [facility] escitalopra m oxalate (LEXAPRO) 20 mg tablet 2022-0 03-06 00:00: 00 Yes [id number] 20mg Take 1 tablet by mouth in the morning. [facility] escitalopra m oxalate (LEXAPRO) 20 mg tablet 2022-0 03-06 00:00: 00 Yes [id number] 20mg Take 1 tablet by mouth in the morning. [facility] escitalopra m oxalate (LEXAPRO) 20 mg tablet 2022-0 25 00:00: 00 Yes [id number] 20mg Take 1 tablet by mouth in the morning. [facility] escitalopra m oxalate (LEXAPRO) 20 mg tablet 3-0 725 00:00: 00 Yes [id number] 20mg Take 1 tablet by mouth in the morning. [facility] escitalopra m oxalate (LEXAPRO) 20 mg tablet 0 03-06 00:00: 00 Yes [id number] 20mg Take 1 tablet by mouth in the morning. [facility] escitalopra m oxalate (LEXAPRO) 20 mg tablet 0 03-06 00:00: 00 Yes [id number] 20mg Take 1 tablet by mouth in the morning. [facility] escitalopra m oxalate (LEXAPRO) 20 mg tablet 0 03-06 00:00: 00 Yes [id number] 20mg Take 1 tablet by mouth in the morning. [facility] escitalopra m oxalate (LEXAPRO) 20 mg tablet 03-06 00:00: 00 Yes [id number] 20mg Take 1 tablet by mouth in the morning. [facility] escitalopra m oxalate (LEXAPRO) 20 mg tablet 0 03-06 00:00: 00 Yes [id number] 20mg Take 1 tablet by mouth in the morning. [facility] escitalopra m oxalate (LEXAPRO) 20 mg tablet 03-06 00:00: 00 Yes [id number] 20mg Take 1 tablet by mouth in the morning. [facility] escitalopra m oxalate (LEXAPRO) 20 mg tablet 03-06 00:00: 00 11-05 00:00 :00 No [id number] 20mg Take 1 tablet by mouth in the morning. [facility] meclizine 25 mg tablet 03-06 00:00: 00 06-06 00:00 :00 No [id number] TAKE 1 TABLET BY MOUTH EVERY 8 HOURS NEEDED [facility] atorvastati n 20 mg tablet 03-06 00:00: 00 06-06 00:00 :00 No [id number] 20mg Take 1 tablet by mouth at bedtime. [facility] meclizine 25 mg tablet 0 03-06 00:00: 00 06-06 00:00 :00 No [id number] TAKE 1 TABLET BY MOUTH EVERY 8 HOURS NEEDED [facility] atorvastati n 20 mg tablet 03-06 00:00: 06-06 00:00 :00 No [id number] 20mg Take 1 tablet by mouth at bedtime. [facility] proMETHazin e 12.5 mg tablet 03-06 00:00: 04-10 00:00 :00 No [id number] TAKE 2 TABLETS BY MOUTH EVERY 6 HOURS NEEDED FOR NAUSEA AND VOMITING [facility] proMETHazin e 12.5 mg tablet 03-06 00:00: 00 04-10 00:00 :00 No [id number] TAKE 2 TABLETS BY MOUTH EVERY 6 HOURS NEEDED FOR NAUSEA AND VOMITING [facility] proMETHazin e 12.5 mg tablet 03-06 00:00: 00 04-10 00:00 :00 No [id number] TAKE 2 TABLETS BY MOUTH EVERY 6 HOURS NEEDED FOR NAUSEA AND VOMITING [facility] semaglutide (OZEMPIC) 2 mg/dose (8 mg/3 mL) Ij 03-06 00:00: 00 04-03 00:00 :00 No [id number] INJECT 2 MG UNDER THE SKIN WEEKLY [facility] OZEMPIC 2 mg/dose (8 mg/3 mL) Ij 02-27 00:00: 00 Yes [id number] INJECT 2 MG UNDER THE SKIN WEEKLY [facility] OZEMPIC 2 mg/dose (8 mg/3 mL) Ij 02-27 00:00: 00 03-06 00:00 :00 No [id number] INJECT 2 MG UNDER THE SKIN WEEKLY [facility] OZEMPIC 2 mg/dose (8 mg/3 mL) Ij 02-27 00:00: 00 03-06 00:00 :00 No [id number] INJECT 2 MG UNDER THE SKIN WEEKLY [facility] NuvaRing 0.12-0.015 mg/24 hr vaginal insert 6- 00:00: 00 Yes [id number] 1{each} Insert 1 Each into vagina once every month. Insert vaginally and leave in place for 3 consecutiv e weeks, then remove for 1 week. [facility] NuvaRing 0.12-0.015 mg/24 hr vaginal insert 0 02-05 00:00: 00 Yes [id number] 1{each} Insert 1 Each into vagina once every month. Insert vaginally and leave in place for 3 consecutiv e weeks, then remove for 1 week. [facility] NuvaRing 0.12-0.015 mg/24 hr vaginal insert 0 02-05 00:00: 00 Yes [id number] 1{each} Insert 1 Each into vagina once every month. Insert vaginally and leave in place for 3 consecutiv e weeks, then remove for 1 week. [facility] NuvaRing 0.12-0.015 mg/24 hr vaginal insert 0 02-05 00:00: 00 Yes [id number] 1{each} Insert 1 Each into vagina once every month. Insert vaginally and leave in place for 3 consecutiv e weeks, then remove for 1 week. [facility] NuvaRing 0.12-0.015 mg/24 hr vaginal insert 0 02-05 00:00: 00 03-08 00:00 :00 No [id number] 1{each} Insert 1 Each into vagina once every month. Insert vaginally and leave in place for 3 consecutiv e weeks, then remove for 1 week. [facility] NuvaRing 0.12-0.015 mg/24 hr vaginal insert 0 02-05 00:00: 00 03-08 00:00 :00 No [id number] 1{each} Insert 1 Each into vagina once every month. Insert vaginally and leave in place for 3 consecutiv e weeks, then remove for 1 week. [facility] NuvaRing 0.12-0.015 mg/24 hr vaginal insert 2022-0 02-05 00:00: 00 03-08 00:00 :00 No [id number] 1{each} Insert 1 Each into vagina once every month. Insert vaginally and leave in place for 3 consecutiv e weeks, then remove for 1 week. [facility] tiZANidine 4 mg tablet 3-0 21 00:00: 00 Yes [id number] 9100 Take 1 tablet by mouth three times daily as needed for muscle spasm [facility] tiZANidine 4 mg tablet 3-0 6-21 00:00: 00 Yes [id number] 9100 Take 1 tablet by mouth three times daily as needed for muscle spasm [facility] tiZANidine 4 mg tablet 3-0 6-21 00:00: 00 Yes [id number] 9100 Take 1 tablet by mouth three times daily as needed for muscle spasm [facility] tiZANidine 4 mg tablet 3-0 6-21 00:00: 00 Yes [id number] 9100 Take 1 tablet by mouth three times daily as needed for muscle spasm [facility] tiZANidine 4 mg tablet 3-0 6-21 00:00: 00 Yes [id number] 9100 Take 1 tablet by mouth three times daily as needed for muscle spasm [facility] tiZANidine 4 mg tablet 3-0 21 00:00: 00 Yes [id number] 9100 Take 1 tablet by mouth three times daily as needed for muscle spasm [facility] tiZANidine 4 mg tablet 3-0 6-21 00:00: 00 Yes [id number] 9100 Take 1 tablet by mouth three times daily as needed for muscle spasm [facility] tiZANidine 4 mg tablet 3-0 21 00:00: 00 03-13 00:00 :00 No [id number] 9100 Take 1 tablet by mouth three times daily as needed for muscle spasm [facility] tiZANidine 4 mg tablet 3-0 21 00:00: 00 03-13 00:00 :00 No [id number] 9100 Take 1 tablet by mouth three times daily as needed for muscle spasm [facility] tiZANidine 4 mg tablet 3-0 6-21 00:00: 00 03-13 00:00 :00 No [id number] 9100 Take 1 tablet by mouth three times daily as needed for muscle spasm [facility] tiZANidine 4 mg tablet 0 01-31 00:00: 00 03-13 00:00 :00 No [id number] 9100 Take 1 tablet by mouth three times daily as needed for muscle spasm [facility] tiZANidine 4 mg tablet 2022-0 01-31 00:00: 00 03-13 00:00 :00 No [id number] 9100 Take 1 tablet by mouth three times daily as needed for muscle spasm [facility] gabapentin 600 mg tablet 2022-0 20 00:00: 00 Yes [id number] 600mg Take 1 tablet by mouth in the morning and 1 tablet at noon and 1 tablet in the evening. [facility] gabapentin 600 mg tablet 2022-0 -20 00:00: 00 Yes [id number] 600mg Take 1 tablet by mouth in the morning and 1 tablet at noon and 1 tablet in the evening. [facility] gabapentin 600 mg tablet 2022-0 20 00:00: 00 Yes [id number] 600mg Take 1 tablet by mouth in the morning and 1 tablet at noon and 1 tablet in the evening. [facility] gabapentin 600 mg tablet 2022-0 20 00:00: 00 Yes [id number] 600mg Take 1 tablet by mouth in the morning and 1 tablet at noon and 1 tablet in the evening. [facility] gabapentin 600 mg tablet 2022-0 20 00:00: 00 Yes [id number] 600mg Take 1 tablet by mouth in the morning and 1 tablet at noon and 1 tablet in the evening. [facility] gabapentin 600 mg tablet 2022-0 20 00:00: 00 Yes [id number] 600mg Take 1 tablet by mouth in the morning and 1 tablet at noon and 1 tablet in the evening. [facility] gabapentin 600 mg tablet 2022-0 -20 00:00: 00 Yes [id number] 600mg Take 1 tablet by mouth in the morning and 1 tablet at noon and 1 tablet in the evening. [facility] gabapentin 600 mg tablet 2022-0 -20 00:00: 00 Yes [id number] 600mg Take 1 tablet by mouth in the morning and 1 tablet at noon and 1 tablet in the evening. [facility] gabapentin 600 mg tablet 01-30 00:00: 00 Yes [id number] 600mg Take 1 tablet by mouth in the morning and 1 tablet at noon and 1 tablet in the evening. [facility] gabapentin 600 mg tablet 01-30 00:00: 00 03-13 00:00 :00 No [id number] 600mg Take 1 tablet by mouth in the morning and 1 tablet at noon and 1 tablet in the evening. [facility] gabapentin 600 mg tablet 01-30 00:00: 00 03-13 00:00 :00 No [id number] 600mg Take 1 tablet by mouth in the morning and 1 tablet at noon and 1 tablet in the evening. [facility] gabapentin 600 mg tablet 01-30 00:00: 00 03-13 00:00 :00 No [id number] 600mg Take 1 tablet by mouth in the morning and 1 tablet at noon and 1 tablet in the evening. [facility] gabapentin 600 mg tablet 01-30 00:00: 00 03-13 00:00 :00 No [id number] 600mg Take 1 tablet by mouth in the morning and 1 tablet at noon and 1 tablet in the evening. [facility] gabapentin 600 mg tablet 01-30 00:00: 00 03-13 00:00 :00 No [id number] 600mg Take 1 tablet by mouth in the morning and 1 tablet at noon and 1 tablet in the evening. [facility] insulin NPH (NOVOLIN N NPH U-100 INSULIN) 100 unit/mL injection 01-27 00:00: 00 Yes [id number] 10U inject 10 Units under the skin in the morning. Inject only if fasting BG >150 [facility] insulin NPH (NOVOLIN N NPH U-100 INSULIN) 100 unit/mL injection 01-27 00:00: 00 Yes [id number] 10U inject 10 Units under the skin in the morning. Inject only if fasting BG >150 [facility] insulin NPH (NOVOLIN N NPH U-100 INSULIN) 100 unit/mL injection 01-27 00:00: 00 Yes [id number] 10U inject 10 Units under the skin in the morning. Inject only if fasting BG >150 [facility] insulin NPH (NOVOLIN N NPH U-100 INSULIN) 100 unit/mL injection 01-27 00:00: 00 Yes [id number] 10U inject 10 Units under the skin in the morning. Inject only if fasting BG >150 [facility] insulin NPH (NOVOLIN N NPH U-100 INSULIN) 100 unit/mL injection 01-27 00:00: 00 Yes [id number] 10U inject 10 Units under the skin in the morning. Inject only if fasting BG >150 [facility] insulin NPH (NOVOLIN N NPH U-100 INSULIN) 100 unit/mL injection 01-27 00:00: 00 Yes [id number] 10U inject 10 Units under the skin in the morning. Inject only if fasting BG >150 [facility] insulin NPH (NOVOLIN N NPH U-100 INSULIN) 100 unit/mL injection 01-27 00:00: 00 Yes [id number] 10U inject 10 Units under the skin in the morning. Inject only if fasting BG >150 [facility] insulin NPH (NOVOLIN N NPH U-100 INSULIN) 100 unit/mL injection 01-27 00:00: 00 Yes [id number] 10U inject 10 Units under the skin in the morning. Inject only if fasting BG >150 [facility] insulin NPH (NOVOLIN N NPH U-100 INSULIN) 100 unit/mL injection 01-27 00:00: 00 Yes [id number] 10U inject 10 Units under the skin in the morning. Inject only if fasting BG >150 [facility] insulin NPH (NOVOLIN N NPH U-100 INSULIN) 100 unit/mL injection 01-27 00:00: 00 Yes [id number] 10U inject 10 Units under the skin in the morning. Inject only if fasting BG >150 [facility] insulin NPH (NOVOLIN N NPH U-100 INSULIN) 100 unit/mL injection 01-27 00:00: 00 Yes [id number] 10U inject 10 Units under the skin in the morning. Inject only if fasting BG >150 [facility] insulin NPH (NOVOLIN N NPH U-100 INSULIN) 100 unit/mL injection 01-27 00:00: 00 Yes [id number] 10U inject 10 Units under the skin in the morning. Inject only if fasting BG >150 [facility] insulin NPH (NOVOLIN N NPH U-100 INSULIN) 100 unit/mL injection 01-27 00:00: 00 Yes [id number] 10U inject 10 Units under the skin in the morning. Inject only if fasting BG >150 [facility] insulin NPH (NOVOLIN N NPH U-100 INSULIN) 100 unit/mL injection 01-27 00:00: 00 Yes [id number] 10U inject 10 Units under the skin in the morning. Inject only if fasting BG >150 [facility] insulin NPH (NOVOLIN N NPH U-100 INSULIN) 100 unit/mL injection 01-27 00:00: 00 Yes [id number] 10U inject 10 Units under the skin in the morning. Inject only if fasting BG >150 [facility] insulin NPH (NOVOLIN N NPH U-100 INSULIN) 100 unit/mL injection 01-27 00:00: 00 Yes [id number] 10U inject 10 Units under the skin in the morning. Inject only if fasting BG >150 [facility] insulin NPH (NOVOLIN N NPH U-100 INSULIN) 100 unit/mL injection 01-27 00:00: 00 Yes [id number] 10U inject 10 Units under the skin in the morning. Inject only if fasting BG >150 [facility] insulin NPH (NOVOLIN N NPH U-100 INSULIN) 100 unit/mL injection 01-27 00:00: 00 Yes [id number] 10U inject 10 Units under the skin in the morning. Inject only if fasting BG >150 [facility] insulin NPH (NOVOLIN N NPH U-100 INSULIN) 100 unit/mL injection 01-27 00:00: 00 Yes [id number] 10U inject 10 Units under the skin in the morning. Inject only if fasting BG >150 [facility] insulin NPH (NOVOLIN N NPH U-100 INSULIN) 100 unit/mL injection 01-27 00:00: 00 Yes [id number] 10U inject 10 Units under the skin in the morning. Inject only if fasting BG >150 [facility] insulin NPH (NOVOLIN N NPH U-100 INSULIN) 100 unit/mL injection 01-27 00:00: 00 Yes [id number] 10U inject 10 Units under the skin in the morning. Inject only if fasting BG >150 [facility] insulin NPH (NOVOLIN N NPH U-100 INSULIN) 100 unit/mL injection 01-27 00:00: 00 Yes [id number] 10U inject 10 Units under the skin in the morning. Inject only if fasting BG >150 [facility] insulin NPH (NOVOLIN N NPH U-100 INSULIN) 100 unit/mL injection 01-27 00:00: 00 Yes [id number] 10U inject 10 Units under the skin in the morning. Inject only if fasting BG >150 [facility] insulin NPH (NOVOLIN N NPH U-100 INSULIN) 100 unit/mL injection 01-27 00:00: 00 Yes [id number] 10U inject 10 Units under the skin in the morning. Inject only if fasting BG >150 [facility] PROMETHAZIN E 12.5 mg tablet 01-25 00:00: 00 Yes [id number] TAKE 2 TABLETS BY MOUTH EVERY 6 HOURS NEEDED FOR NAUSEA AND VOMITING [facility] PROMETHAZIN E 12.5 mg tablet 01-25 00:00: 00 Yes [id number] TAKE 2 TABLETS BY MOUTH EVERY 6 HOURS NEEDED FOR NAUSEA AND VOMITING [facility] glyBURIDE 5 mg tablet 01-25 00:00: 00 Yes [id number] TAKE 1 TABLET BY MOUTH TWICE DAILY (NEEDS FOLLOW UP VISIT FOR FURTHER REFILLS [facility] PROMETHAZIN E 12.5 mg tablet 01-25 00:00: 00 Yes [id number] TAKE 2 TABLETS BY MOUTH EVERY 6 HOURS NEEDED FOR NAUSEA AND VOMITING [facility] glyBURIDE 5 mg tablet 3-0 6-15 00:00: 00 Yes [id number] TAKE 1 TABLET BY MOUTH TWICE DAILY (NEEDS FOLLOW UP VISIT FOR FURTHER REFILLS [facility] PROMETHAZIN E 12.5 mg tablet 2023-0 6-15 00:00: 00 Yes [id number] TAKE 2 TABLETS BY MOUTH EVERY 6 HOURS NEEDED FOR NAUSEA AND VOMITING [facility] glyBURIDE 5 mg tablet 3-0 6-15 00:00: 00 Yes [id number] TAKE 1 TABLET BY MOUTH TWICE DAILY (NEEDS FOLLOW UP VISIT FOR FURTHER REFILLS [facility] PROMETHAZIN E 12.5 mg tablet 3-0 6-15 00:00: 00 Yes [id number] TAKE 2 TABLETS BY MOUTH EVERY 6 HOURS NEEDED FOR NAUSEA AND VOMITING [facility] glyBURIDE 5 mg tablet 3-0 6-15 00:00: 00 Yes [id number] TAKE 1 TABLET BY MOUTH TWICE DAILY (NEEDS FOLLOW UP VISIT FOR FURTHER REFILLS [facility] PROMETHAZIN E 12.5 mg tablet 3-0 6-15 00:00: 00 Yes [id number] TAKE 2 TABLETS BY MOUTH EVERY 6 HOURS NEEDED FOR NAUSEA AND VOMITING [facility] glyBURIDE 5 mg tablet 3-0 6-15 00:00: 00 Yes [id number] TAKE 1 TABLET BY MOUTH TWICE DAILY (NEEDS FOLLOW UP VISIT FOR FURTHER REFILLS [facility] PROMETHAZIN E 12.5 mg tablet 3-0 6-15 00:00: 00 Yes [id number] TAKE 2 TABLETS BY MOUTH EVERY 6 HOURS NEEDED FOR NAUSEA AND VOMITING [facility] glyBURIDE 5 mg tablet 3-0 6-15 00:00: 00 Yes [id number] TAKE 1 TABLET BY MOUTH TWICE DAILY (NEEDS FOLLOW UP VISIT FOR FURTHER REFILLS [facility] PROMETHAZIN E 12.5 mg tablet 2023-0 6-15 00:00: 00 Yes [id number] TAKE 2 TABLETS BY MOUTH EVERY 6 HOURS NEEDED FOR NAUSEA AND VOMITING [facility] glyBURIDE 5 mg tablet 3-0 6-15 00:00: 00 Yes [id number] TAKE 1 TABLET BY MOUTH TWICE DAILY (NEEDS FOLLOW UP VISIT FOR FURTHER REFILLS [facility] PROMETHAZIN E 12.5 mg tablet 2022-0 6-15 00:00: 00 Yes [id number] TAKE 2 TABLETS BY MOUTH EVERY 6 HOURS NEEDED FOR NAUSEA AND VOMITING [facility] glyBURIDE 5 mg tablet 3-0 6-15 00:00: 00 Yes [id number] TAKE 1 TABLET BY MOUTH TWICE DAILY (NEEDS FOLLOW UP VISIT FOR FURTHER REFILLS [facility] PROMETHAZIN E 12.5 mg tablet 3-0 6-15 00:00: 00 Yes [id number] TAKE 2 TABLETS BY MOUTH EVERY 6 HOURS NEEDED FOR NAUSEA AND VOMITING [facility] glyBURIDE 5 mg tablet 3-0 6-15 00:00: 00 Yes [id number] TAKE 1 TABLET BY MOUTH TWICE DAILY (NEEDS FOLLOW UP VISIT FOR FURTHER REFILLS [facility] PROMETHAZIN E 12.5 mg tablet 3-0 -15 00:00: 00 Yes [id number] TAKE 2 TABLETS BY MOUTH EVERY 6 HOURS NEEDED FOR NAUSEA AND VOMITING [facility] glyBURIDE 5 mg tablet 3-0 6-15 00:00: 00 Yes [id number] TAKE 1 TABLET BY MOUTH TWICE DAILY (NEEDS FOLLOW UP VISIT FOR FURTHER REFILLS [facility] PROMETHAZIN E 12.5 mg tablet 3-0 6-15 00:00: 00 Yes [id number] TAKE 2 TABLETS BY MOUTH EVERY 6 HOURS NEEDED FOR NAUSEA AND VOMITING [facility] glyBURIDE 5 mg tablet 3-0 6-15 00:00: 00 Yes [id number] TAKE 1 TABLET BY MOUTH TWICE DAILY (NEEDS FOLLOW UP VISIT FOR FURTHER REFILLS [facility] PROMETHAZIN E 12.5 mg tablet 3-0 6-15 00:00: 00 Yes [id number] TAKE 2 TABLETS BY MOUTH EVERY 6 HOURS NEEDED FOR NAUSEA AND VOMITING [facility] glyBURIDE 5 mg tablet 3-0 6-15 00:00: 00 Yes [id number] TAKE 1 TABLET BY MOUTH TWICE DAILY (NEEDS FOLLOW UP VISIT FOR FURTHER REFILLS [facility] glyBURIDE 5 mg tablet 3-0 6-15 00:00: 00 Yes [id number] TAKE 1 TABLET BY MOUTH TWICE DAILY (NEEDS FOLLOW UP VISIT FOR FURTHER REFILLS [facility] glyBURIDE 5 mg tablet 3-0 6-15 00:00: 00 Yes [id number] TAKE 1 TABLET BY MOUTH TWICE DAILY (NEEDS FOLLOW UP VISIT FOR FURTHER REFILLS [facility] glyBURIDE 5 mg tablet 3-0 6-15 00:00: 00 Yes [id number] TAKE 1 TABLET BY MOUTH TWICE DAILY (NEEDS FOLLOW UP VISIT FOR FURTHER REFILLS [facility] glyBURIDE 5 mg tablet 3-0 6-15 00:00: 00 Yes [id number] TAKE 1 TABLET BY MOUTH TWICE DAILY (NEEDS FOLLOW UP VISIT FOR FURTHER REFILLS [facility] glyBURIDE 5 mg tablet 3-0 6-15 00:00: 00 Yes [id number] TAKE 1 TABLET BY MOUTH TWICE DAILY (NEEDS FOLLOW UP VISIT FOR FURTHER REFILLS [facility] glyBURIDE 5 mg tablet 3-0 6-15 00:00: 00 Yes [id number] TAKE 1 TABLET BY MOUTH TWICE DAILY (NEEDS FOLLOW UP VISIT FOR FURTHER REFILLS [facility] glyBURIDE 5 mg tablet 3-0 6-15 00:00: 00 Yes [id number] TAKE 1 TABLET BY MOUTH TWICE DAILY (NEEDS FOLLOW UP VISIT FOR FURTHER REFILLS [facility] glyBURIDE 5 mg tablet 3-0 6-15 00:00: 00 Yes [id number] TAKE 1 TABLET BY MOUTH TWICE DAILY (NEEDS FOLLOW UP VISIT FOR FURTHER REFILLS [facility] glyBURIDE 5 mg tablet 3-0 6-15 00:00: 00 Yes [id number] TAKE 1 TABLET BY MOUTH TWICE DAILY (NEEDS FOLLOW UP VISIT FOR FURTHER REFILLS [facility] glyBURIDE 5 mg tablet 2023-0 6-15 00:00: 00 Yes [id number] TAKE 1 TABLET BY MOUTH TWICE DAILY (NEEDS FOLLOW UP VISIT FOR FURTHER REFILLS [facility] glyBURIDE 5 mg tablet 3-0 6-15 00:00: 00 Yes [id number] TAKE 1 TABLET BY MOUTH TWICE DAILY (NEEDS FOLLOW UP VISIT FOR FURTHER REFILLS [facility] glyBURIDE 5 mg tablet 2023-0 6-15 00:00: 00 Yes [id number] TAKE 1 TABLET BY MOUTH TWICE DAILY (NEEDS FOLLOW UP VISIT FOR FURTHER REFILLS [facility] glyBURIDE 5 mg tablet 2023-0 6-15 00:00: 00 Yes [id number] TAKE 1 TABLET BY MOUTH TWICE DAILY (NEEDS FOLLOW UP VISIT FOR FURTHER REFILLS [facility] glyBURIDE 5 mg tablet 3-0 6-15 00:00: 00 Yes [id number] TAKE 1 TABLET BY MOUTH TWICE DAILY (NEEDS FOLLOW UP VISIT FOR FURTHER REFILLS [facility] glyBURIDE 5 mg tablet 2023-0 6-15 00:00: 00 Yes [id number] TAKE 1 TABLET BY MOUTH TWICE DAILY (NEEDS FOLLOW UP VISIT FOR FURTHER REFILLS [facility] glyBURIDE 5 mg tablet 3-0 6-15 00:00: 00 Yes [id number] TAKE 1 TABLET BY MOUTH TWICE DAILY (NEEDS FOLLOW UP VISIT FOR FURTHER REFILLS [facility] glyBURIDE 5 mg tablet 3-0 6-15 00:00: 00 Yes [id number] TAKE 1 TABLET BY MOUTH TWICE DAILY (NEEDS FOLLOW UP VISIT FOR FURTHER REFILLS [facility] glyBURIDE 5 mg tablet 2023-0 6-15 00:00: 00 Yes [id number] TAKE 1 TABLET BY MOUTH TWICE DAILY (NEEDS FOLLOW UP VISIT FOR FURTHER REFILLS [facility] glyBURIDE 5 mg tablet 2023-0 6-15 00:00: 00 Yes [id number] TAKE 1 TABLET BY MOUTH TWICE DAILY (NEEDS FOLLOW UP VISIT FOR FURTHER REFILLS [facility] glyBURIDE 5 mg tablet 2023-0 6-15 00:00: 00 Yes [id number] TAKE 1 TABLET BY MOUTH TWICE DAILY (NEEDS FOLLOW UP VISIT FOR FURTHER REFILLS [facility] glyBURIDE 5 mg tablet 2023-0 6-15 00:00: 00 Yes [id number] TAKE 1 TABLET BY MOUTH TWICE DAILY (NEEDS FOLLOW UP VISIT FOR FURTHER REFILLS [facility] glyBURIDE 5 mg tablet 2022-0 6-15 00:00: 00 Yes [id number] TAKE 1 TABLET BY MOUTH TWICE DAILY (NEEDS FOLLOW UP VISIT FOR FURTHER REFILLS [facility] glyBURIDE 5 mg tablet 3-0 6-15 00:00: 00 Yes [id number] TAKE 1 TABLET BY MOUTH TWICE DAILY (NEEDS FOLLOW UP VISIT FOR FURTHER REFILLS [facility] glyBURIDE 5 mg tablet 2022-0 6-15 00:00: 00 Yes [id number] TAKE 1 TABLET BY MOUTH TWICE DAILY (NEEDS FOLLOW UP VISIT FOR FURTHER REFILLS [facility] glyBURIDE 5 mg tablet 2022-0 6-15 00:00: 00 Yes [id number] TAKE 1 TABLET BY MOUTH TWICE DAILY (NEEDS FOLLOW UP VISIT FOR FURTHER REFILLS [facility] glyBURIDE 5 mg tablet 2022-0 6-15 00:00: 00 Yes [id number] TAKE 1 TABLET BY MOUTH TWICE DAILY (NEEDS FOLLOW UP VISIT FOR FURTHER REFILLS [facility] glyBURIDE 5 mg tablet 2022-0 6-15 00:00: 00 Yes [id number] TAKE 1 TABLET BY MOUTH TWICE DAILY (NEEDS FOLLOW UP VISIT FOR FURTHER REFILLS [facility] glyBURIDE 5 mg tablet 2022-0 6-15 00:00: 00 Yes [id number] TAKE 1 TABLET BY MOUTH TWICE DAILY (NEEDS FOLLOW UP VISIT FOR FURTHER REFILLS [facility] glyBURIDE 5 mg tablet 2022-0 6-15 00:00: 00 Yes [id number] TAKE 1 TABLET BY MOUTH TWICE DAILY (NEEDS FOLLOW UP VISIT FOR FURTHER REFILLS [facility] glyBURIDE 5 mg tablet 2022-0 6-15 00:00: 00 05-07 00:00 :00 No [id number] TAKE 1 TABLET BY MOUTH TWICE DAILY (NEEDS FOLLOW UP VISIT FOR FURTHER REFILLS [facility] PROMETHAZIN E 12.5 mg tablet 2022-0 6-15 00:00: 00 03-06 00:00 :00 No [id number] TAKE 2 TABLETS BY MOUTH EVERY 6 HOURS NEEDED FOR NAUSEA AND VOMITING [facility] PROMETHAZIN E 12.5 mg tablet 2022-0 15 00:00: 00 03-06 00:00 :00 No [id number] TAKE 2 TABLETS BY MOUTH EVERY 6 HOURS NEEDED FOR NAUSEA AND VOMITING [facility] PROMETHAZIN E 12.5 mg tablet 2022-0 15 00:00: 03-06 00:00 :00 No [id number] TAKE 2 TABLETS BY MOUTH EVERY 6 HOURS NEEDED FOR NAUSEA AND VOMITING [facility] PROMETHAZIN E 12.5 mg tablet 2022-0 15 00:00: 03-06 00:00 :00 No [id number] TAKE 2 TABLETS BY MOUTH EVERY 6 HOURS NEEDED FOR NAUSEA AND VOMITING [facility] lidocaine HCL (ASPERCREME , LIDOCAINE HCL,) 4 % Crea 2022-0 01-19 00:00: 00 Yes [id number] 1{each} Apply 1 Each to area(s) in the morning and 1 Each in the evening. [facility] lidocaine HCL (ASPERCREME , LIDOCAINE HCL,) 4 % Crea 2022-0 01-19 00:00: 00 Yes [id number] 1{each} Apply 1 Each to area(s) in the morning and 1 Each in the evening. [facility] lidocaine HCL (ASPERCREME , LIDOCAINE HCL,) 4 % Crea 3-0 01-19 00:00: 00 Yes [id number] 1{each} Apply 1 Each to area(s) in the morning and 1 Each in the evening. [facility] lidocaine HCL (ASPERCREME , LIDOCAINE HCL,) 4 % Crea 3-0 01-19 00:00: 00 Yes [id number] 1{each} Apply 1 Each to area(s) in the morning and 1 Each in the evening. [facility] lidocaine HCL (ASPERCREME , LIDOCAINE HCL,) 4 % Crea 3-0 01-19 00:00: 00 Yes [id number] 1{each} Apply 1 Each to area(s) in the morning and 1 Each in the evening. [facility] lidocaine HCL (ASPERCREME , LIDOCAINE HCL,) 4 % Crea 2023-0 - 00:00: 00 Yes [id number] 1{each} Apply 1 Each to area(s) in the morning and 1 Each in the evening. [facility] lidocaine HCL (ASPERCREME , LIDOCAINE HCL,) 4 % Crea 2023-0 - 00:00: 00 Yes [id number] 1{each} Apply 1 Each to area(s) in the morning and 1 Each in the evening. [facility] lidocaine HCL (ASPERCREME , LIDOCAINE HCL,) 4 % Crea 2023-0 - 00:00: 00 Yes [id number] 1{each} Apply 1 Each to area(s) in the morning and 1 Each in the evening. [facility] lidocaine HCL (ASPERCREME , LIDOCAINE HCL,) 4 % Crea 2023-0 - 00:00: 00 Yes [id number] 1{each} Apply 1 Each to area(s) in the morning and 1 Each in the evening. [facility] lidocaine HCL (ASPERCREME , LIDOCAINE HCL,) 4 % Crea 2023-0 - 00:00: 00 Yes [id number] 1{each} Apply 1 Each to area(s) in the morning and 1 Each in the evening. [facility] lidocaine HCL (ASPERCREME , LIDOCAINE HCL,) 4 % Crea 2023-0 01-19 00:00: 00 Yes [id number] 1{each} Apply 1 Each to area(s) in the morning and 1 Each in the evening. [facility] lidocaine HCL (ASPERCREME , LIDOCAINE HCL,) 4 % Crea 2023-0 - 00:00: 00 Yes [id number] 1{each} Apply 1 Each to area(s) in the morning and 1 Each in the evening. [facility] lidocaine HCL (ASPERCREME , LIDOCAINE HCL,) 4 % Crea 2023-0 - 00:00: 00 Yes [id number] 1{each} Apply 1 Each to area(s) in the morning and 1 Each in the evening. [facility] lidocaine HCL (ASPERCREME , LIDOCAINE HCL,) 4 % Crea 2023-0 - 00:00: 00 Yes [id number] 1{each} Apply 1 Each to area(s) in the morning and 1 Each in the evening. [facility] lidocaine HCL (ASPERCREME , LIDOCAINE HCL,) 4 % Crea 2023-0 6- 00:00: 00 Yes [id number] 1{each} Apply 1 Each to area(s) in the morning and 1 Each in the evening. [facility] lidocaine HCL (ASPERCREME , LIDOCAINE HCL,) 4 % Crea 2023-0 6- 00:00: 00 Yes [id number] 1{each} Apply 1 Each to area(s) in the morning and 1 Each in the evening. [facility] lidocaine HCL (ASPERCREME , LIDOCAINE HCL,) 4 % Crea 2023-0 6- 00:00: 00 Yes [id number] 1{each} Apply 1 Each to area(s) in the morning and 1 Each in the evening. [facility] lidocaine HCL (ASPERCREME , LIDOCAINE HCL,) 4 % Crea 2023-0 - 00:00: 00 Yes [id number] 1{each} Apply 1 Each to area(s) in the morning and 1 Each in the evening. [facility] lidocaine HCL (ASPERCREME , LIDOCAINE HCL,) 4 % Crea 2023-0 6- 00:00: 00 Yes [id number] 1{each} Apply 1 Each to area(s) in the morning and 1 Each in the evening. [facility] lidocaine HCL (ASPERCREME , LIDOCAINE HCL,) 4 % Crea 2023-0 6- 00:00: 00 Yes [id number] 1{each} Apply 1 Each to area(s) in the morning and 1 Each in the evening. [facility] lidocaine HCL (ASPERCREME , LIDOCAINE HCL,) 4 % Crea 2023-0 6- 00:00: 00 Yes [id number] 1{each} Apply 1 Each to area(s) in the morning and 1 Each in the evening. [facility] lidocaine HCL (ASPERCREME , LIDOCAINE HCL,) 4 % Crea 2023-0 6- 00:00: 00 Yes [id number] 1{each} Apply 1 Each to area(s) in the morning and 1 Each in the evening. [facility] lidocaine HCL (ASPERCREME , LIDOCAINE HCL,) 4 % Crea 2023-0 6- 00:00: 00 Yes [id number] 1{each} Apply 1 Each to area(s) in the morning and 1 Each in the evening. [facility] lidocaine HCL (ASPERCREME , LIDOCAINE HCL,) 4 % Crea 2023-0 6- 00:00: 00 Yes [id number] 1{each} Apply 1 Each to area(s) in the morning and 1 Each in the evening. [facility] lidocaine HCL (ASPERCREME , LIDOCAINE HCL,) 4 % Crea 2023-0 6- 00:00: 00 Yes [id number] 1{each} Apply 1 Each to area(s) in the morning and 1 Each in the evening. [facility] lidocaine HCL (ASPERCREME , LIDOCAINE HCL,) 4 % Crea 2023-0 6- 00:00: 00 Yes [id number] 1{each} Apply 1 Each to area(s) in the morning and 1 Each in the evening. [facility] lidocaine HCL (ASPERCREME , LIDOCAINE HCL,) 4 % Crea 2023-0 6- 00:00: 00 Yes [id number] 1{each} Apply 1 Each to area(s) in the morning and 1 Each in the evening. [facility] lidocaine HCL (ASPERCREME , LIDOCAINE HCL,) 4 % Crea 2023-0 6- 00:00: 00 Yes [id number] 1{each} Apply 1 Each to area(s) in the morning and 1 Each in the evening. [facility] lidocaine HCL (ASPERCREME , LIDOCAINE HCL,) 4 % Crea 2023-0 6- 00:00: 00 Yes [id number] 1{each} Apply 1 Each to area(s) in the morning and 1 Each in the evening. [facility] lidocaine HCL (ASPERCREME , LIDOCAINE HCL,) 4 % Crea 2023-0 6- 00:00: 00 Yes [id number] 1{each} Apply 1 Each to area(s) in the morning and 1 Each in the evening. [facility] lidocaine HCL (ASPERCREME , LIDOCAINE HCL,) 4 % Crea 2023-0 - 00:00: 00 Yes [id number] 1{each} Apply 1 Each to area(s) in the morning and 1 Each in the evening. [facility] lidocaine HCL (ASPERCREME , LIDOCAINE HCL,) 4 % Crea 2023-0 - 00:00: 00 Yes [id number] 1{each} Apply 1 Each to area(s) in the morning and 1 Each in the evening. [facility] lidocaine HCL (ASPERCREME , LIDOCAINE HCL,) 4 % Crea 2023-0 - 00:00: 00 Yes [id number] 1{each} Apply 1 Each to area(s) in the morning and 1 Each in the evening. [facility] lidocaine HCL (ASPERCREME , LIDOCAINE HCL,) 4 % Crea 2023-0 - 00:00: 00 Yes [id number] 1{each} Apply 1 Each to area(s) in the morning and 1 Each in the evening. [facility] lidocaine HCL (ASPERCREME , LIDOCAINE HCL,) 4 % Crea 2023-0 - 00:00: 00 Yes [id number] 1{each} Apply 1 Each to area(s) in the morning and 1 Each in the evening. [facility] lidocaine HCL (ASPERCREME , LIDOCAINE HCL,) 4 % Crea 2023-0 01-19 00:00: 00 Yes [id number] 1{each} Apply 1 Each to area(s) in the morning and 1 Each in the evening. [facility] lidocaine HCL (ASPERCREME , LIDOCAINE HCL,) 4 % Crea 2023-0 - 00:00: 00 Yes [id number] 1{each} Apply 1 Each to area(s) in the morning and 1 Each in the evening. [facility] lidocaine HCL (ASPERCREME , LIDOCAINE HCL,) 4 % Crea 2023-0 - 00:00: 00 Yes [id number] 1{each} Apply 1 Each to area(s) in the morning and 1 Each in the evening. [facility] lidocaine HCL (ASPERCREME , LIDOCAINE HCL,) 4 % Crea 2023-0 - 00:00: 00 Yes [id number] 1{each} Apply 1 Each to area(s) in the morning and 1 Each in the evening. [facility] lidocaine HCL (ASPERCREME , LIDOCAINE HCL,) 4 % Crea 2023-0 6- 00:00: 00 Yes [id number] 1{each} Apply 1 Each to area(s) in the morning and 1 Each in the evening. [facility] lidocaine HCL (ASPERCREME , LIDOCAINE HCL,) 4 % Crea 2023-0 6- 00:00: 00 Yes [id number] 1{each} Apply 1 Each to area(s) in the morning and 1 Each in the evening. [facility] lidocaine HCL (ASPERCREME , LIDOCAINE HCL,) 4 % Crea 2023-0 6- 00:00: 00 Yes [id number] 1{each} Apply 1 Each to area(s) in the morning and 1 Each in the evening. [facility] lidocaine HCL (ASPERCREME , LIDOCAINE HCL,) 4 % Crea 2023-0 - 00:00: 00 Yes [id number] 1{each} Apply 1 Each to area(s) in the morning and 1 Each in the evening. [facility] lidocaine HCL (ASPERCREME , LIDOCAINE HCL,) 4 % Crea 2023-0 6- 00:00: 00 Yes [id number] 1{each} Apply 1 Each to area(s) in the morning and 1 Each in the evening. [facility] lidocaine HCL (ASPERCREME , LIDOCAINE HCL,) 4 % Crea 2023-0 6- 00:00: 00 Yes [id number] 1{each} Apply 1 Each to area(s) in the morning and 1 Each in the evening. [facility] lidocaine HCL (ASPERCREME , LIDOCAINE HCL,) 4 % Crea 2023-0 6- 00:00: 00 Yes [id number] 1{each} Apply 1 Each to area(s) in the morning and 1 Each in the evening. [facility] lidocaine HCL (ASPERCREME , LIDOCAINE HCL,) 4 % Crea 2023-0 6- 00:00: 00 Yes [id number] 1{each} Apply 1 Each to area(s) in the morning and 1 Each in the evening. [facility] lidocaine HCL (ASPERCREME , LIDOCAINE HCL,) 4 % Crea 2023-0 6- 00:00: 00 Yes [id number] 1{each} Apply 1 Each to area(s) in the morning and 1 Each in the evening. [facility] lidocaine HCL (ASPERCREME , LIDOCAINE HCL,) 4 % Crea 2023-0 6- 00:00: 00 Yes [id number] 1{each} Apply 1 Each to area(s) in the morning and 1 Each in the evening. [facility] lidocaine HCL (ASPERCREME , LIDOCAINE HCL,) 4 % Crea 2023-0 6- 00:00: 00 Yes [id number] 1{each} Apply 1 Each to area(s) in the morning and 1 Each in the evening. [facility] lidocaine HCL (ASPERCREME , LIDOCAINE HCL,) 4 % Crea 2023-0 6- 00:00: 00 Yes [id number] 1{each} Apply 1 Each to area(s) in the morning and 1 Each in the evening. [facility] lidocaine HCL (ASPERCREME , LIDOCAINE HCL,) 4 % Crea 2023-0 6- 00:00: 00 Yes [id number] 1{each} Apply 1 Each to area(s) in the morning and 1 Each in the evening. [facility] lidocaine HCL (ASPERCREME , LIDOCAINE HCL,) 4 % Crea 2023-0 6- 00:00: 00 Yes [id number] 1{each} Apply 1 Each to area(s) in the morning and 1 Each in the evening. [facility] lidocaine HCL (ASPERCREME , LIDOCAINE HCL,) 4 % Crea 2023-0 6- 00:00: 00 Yes [id number] 1{each} Apply 1 Each to area(s) in the morning and 1 Each in the evening. [facility] lidocaine HCL (ASPERCREME , LIDOCAINE HCL,) 4 % Crea 2023-0 6- 00:00: 00 Yes [id number] 1{each} Apply 1 Each to area(s) in the morning and 1 Each in the evening. [facility] lidocaine HCL (ASPERCREME , LIDOCAINE HCL,) 4 % Crea 2023-0 - 00:00: 00 Yes [id number] 1{each} Apply 1 Each to area(s) in the morning and 1 Each in the evening. [facility] lidocaine HCL (ASPERCREME , LIDOCAINE HCL,) 4 % Crea 2023-0 - 00:00: 00 Yes [id number] 1{each} Apply 1 Each to area(s) in the morning and 1 Each in the evening. [facility] lidocaine HCL (ASPERCREME , LIDOCAINE HCL,) 4 % Crea 2023-0 - 00:00: 00 Yes [id number] 1{each} Apply 1 Each to area(s) in the morning and 1 Each in the evening. [facility] lidocaine HCL (ASPERCREME , LIDOCAINE HCL,) 4 % Crea 2023-0 - 00:00: 00 Yes [id number] 1{each} Apply 1 Each to area(s) in the morning and 1 Each in the evening. [facility] lidocaine HCL (ASPERCREME , LIDOCAINE HCL,) 4 % Crea 2023-0 - 00:00: 00 Yes [id number] 1{each} Apply 1 Each to area(s) in the morning and 1 Each in the evening. [facility] lidocaine HCL (ASPERCREME , LIDOCAINE HCL,) 4 % Crea 2023-0 01-19 00:00: 00 Yes [id number] 1{each} Apply 1 Each to area(s) in the morning and 1 Each in the evening. [facility] lidocaine HCL (ASPERCREME , LIDOCAINE HCL,) 4 % Crea 2023-0 - 00:00: 00 Yes [id number] 1{each} Apply 1 Each to area(s) in the morning and 1 Each in the evening. [facility] lidocaine HCL (ASPERCREME , LIDOCAINE HCL,) 4 % Crea 2023-0 - 00:00: 00 Yes [id number] 1{each} Apply 1 Each to area(s) in the morning and 1 Each in the evening. [facility] lidocaine HCL (ASPERCREME , LIDOCAINE HCL,) 4 % Crea 2023-0 - 00:00: 00 Yes [id number] 1{each} Apply 1 Each to area(s) in the morning and 1 Each in the evening. [facility] lidocaine HCL (ASPERCREME , LIDOCAINE HCL,) 4 % Crea 2023-0 6- 00:00: 00 Yes [id number] 1{each} Apply 1 Each to area(s) in the morning and 1 Each in the evening. [facility] lidocaine HCL (ASPERCREME , LIDOCAINE HCL,) 4 % Crea 2023-0 6- 00:00: 00 Yes [id number] 1{each} Apply 1 Each to area(s) in the morning and 1 Each in the evening. [facility] lidocaine HCL (ASPERCREME , LIDOCAINE HCL,) 4 % Crea 2023-0 6- 00:00: 00 Yes [id number] 1{each} Apply 1 Each to area(s) in the morning and 1 Each in the evening. [facility] lidocaine HCL (ASPERCREME , LIDOCAINE HCL,) 4 % Crea 2023-0 - 00:00: 00 Yes [id number] 1{each} Apply 1 Each to area(s) in the morning and 1 Each in the evening. [facility] lidocaine HCL (ASPERCREME , LIDOCAINE HCL,) 4 % Crea 2023-0 6- 00:00: 00 Yes [id number] 1{each} Apply 1 Each to area(s) in the morning and 1 Each in the evening. [facility] lidocaine HCL (ASPERCREME , LIDOCAINE HCL,) 4 % Crea 2023-0 6- 00:00: 00 Yes [id number] 1{each} Apply 1 Each to area(s) in the morning and 1 Each in the evening. [facility] lidocaine HCL (ASPERCREME , LIDOCAINE HCL,) 4 % Crea 2023-0 6- 00:00: 00 Yes [id number] 1{each} Apply 1 Each to area(s) in the morning and 1 Each in the evening. [facility] lidocaine HCL (ASPERCREME , LIDOCAINE HCL,) 4 % Crea 2023-0 6- 00:00: 00 Yes [id number] 1{each} Apply 1 Each to area(s) in the morning and 1 Each in the evening. [facility] lidocaine HCL (ASPERCREME , LIDOCAINE HCL,) 4 % Crea 2023-0 6- 00:00: 00 Yes [id number] 1{each} Apply 1 Each to area(s) in the morning and 1 Each in the evening. [facility] lidocaine HCL (ASPERCREME , LIDOCAINE HCL,) 4 % Crea 2023-0 6- 00:00: 00 Yes [id number] 1{each} Apply 1 Each to area(s) in the morning and 1 Each in the evening. [facility] lidocaine HCL (ASPERCREME , LIDOCAINE HCL,) 4 % Crea 2023-0 6- 00:00: 00 Yes [id number] 1{each} Apply 1 Each to area(s) in the morning and 1 Each in the evening. [facility] lidocaine HCL (ASPERCREME , LIDOCAINE HCL,) 4 % Crea 2023-0 6- 00:00: 00 Yes [id number] 1{each} Apply 1 Each to area(s) in the morning and 1 Each in the evening. [facility] lidocaine HCL (ASPERCREME , LIDOCAINE HCL,) 4 % Crea 2023-0 6- 00:00: 00 Yes [id number] 1{each} Apply 1 Each to area(s) in the morning and 1 Each in the evening. [facility] lidocaine HCL (ASPERCREME , LIDOCAINE HCL,) 4 % Crea 2023-0 6- 00:00: 00 Yes [id number] 1{each} Apply 1 Each to area(s) in the morning and 1 Each in the evening. [facility] lidocaine HCL (ASPERCREME , LIDOCAINE HCL,) 4 % Crea 2023-0 6- 00:00: 00 Yes [id number] 1{each} Apply 1 Each to area(s) in the morning and 1 Each in the evening. [facility] lidocaine HCL (ASPERCREME , LIDOCAINE HCL,) 4 % Crea 2023-0 6- 00:00: 00 Yes [id number] 1{each} Apply 1 Each to area(s) in the morning and 1 Each in the evening. [facility] lidocaine HCL (ASPERCREME , LIDOCAINE HCL,) 4 % Crea 2023-0 - 00:00: 00 Yes [id number] 1{each} Apply 1 Each to area(s) in the morning and 1 Each in the evening. [facility] lidocaine HCL (ASPERCREME , LIDOCAINE HCL,) 4 % Crea 2023-0 - 00:00: 00 Yes [id number] 1{each} Apply 1 Each to area(s) in the morning and 1 Each in the evening. [facility] lidocaine HCL (ASPERCREME , LIDOCAINE HCL,) 4 % Crea 2023-0 - 00:00: 00 Yes [id number] 1{each} Apply 1 Each to area(s) in the morning and 1 Each in the evening. [facility] lidocaine HCL (ASPERCREME , LIDOCAINE HCL,) 4 % Crea 2023-0 - 00:00: 00 Yes [id number] 1{each} Apply 1 Each to area(s) in the morning and 1 Each in the evening. [facility] lidocaine HCL (ASPERCREME , LIDOCAINE HCL,) 4 % Crea 2023-0 - 00:00: 00 Yes [id number] 1{each} Apply 1 Each to area(s) in the morning and 1 Each in the evening. [facility] lidocaine HCL (ASPERCREME , LIDOCAINE HCL,) 4 % Crea 2023-0 01-19 00:00: 00 Yes [id number] 1{each} Apply 1 Each to area(s) in the morning and 1 Each in the evening. [facility] lidocaine HCL (ASPERCREME , LIDOCAINE HCL,) 4 % Crea 2023-0 - 00:00: 00 Yes [id number] 1{each} Apply 1 Each to area(s) in the morning and 1 Each in the evening. [facility] lidocaine HCL (ASPERCREME , LIDOCAINE HCL,) 4 % Crea 2023-0 - 00:00: 00 Yes [id number] 1{each} Apply 1 Each to area(s) in the morning and 1 Each in the evening. [facility] lidocaine HCL (ASPERCREME , LIDOCAINE HCL,) 4 % Crea 2023-0 - 00:00: 00 Yes [id number] 1{each} Apply 1 Each to area(s) in the morning and 1 Each in the evening. [facility] lidocaine HCL (ASPERCREME , LIDOCAINE HCL,) 4 % Crea 2023-0 6- 00:00: 00 Yes [id number] 1{each} Apply 1 Each to area(s) in the morning and 1 Each in the evening. [facility] lidocaine HCL (ASPERCREME , LIDOCAINE HCL,) 4 % Crea 2023-0 6- 00:00: 00 Yes [id number] 1{each} Apply 1 Each to area(s) in the morning and 1 Each in the evening. [facility] lidocaine HCL (ASPERCREME , LIDOCAINE HCL,) 4 % Crea 2023-0 6- 00:00: 00 Yes [id number] 1{each} Apply 1 Each to area(s) in the morning and 1 Each in the evening. [facility] lidocaine HCL (ASPERCREME , LIDOCAINE HCL,) 4 % Crea 2023-0 - 00:00: 00 Yes [id number] 1{each} Apply 1 Each to area(s) in the morning and 1 Each in the evening. [facility] lidocaine HCL (ASPERCREME , LIDOCAINE HCL,) 4 % Crea 2023-0 6- 00:00: 00 Yes [id number] 1{each} Apply 1 Each to area(s) in the morning and 1 Each in the evening. [facility] lidocaine HCL (ASPERCREME , LIDOCAINE HCL,) 4 % Crea 2023-0 6- 00:00: 00 Yes [id number] 1{each} Apply 1 Each to area(s) in the morning and 1 Each in the evening. [facility] lidocaine HCL (ASPERCREME , LIDOCAINE HCL,) 4 % Crea 2023-0 6- 00:00: 00 Yes [id number] 1{each} Apply 1 Each to area(s) in the morning and 1 Each in the evening. [facility] lidocaine HCL (ASPERCREME , LIDOCAINE HCL,) 4 % Crea 2023-0 6- 00:00: 00 Yes [id number] 1{each} Apply 1 Each to area(s) in the morning and 1 Each in the evening. [facility] lidocaine HCL (ASPERCREME , LIDOCAINE HCL,) 4 % Crea 0 01-19 00:00: 00 Yes [id number] 1{each} Apply 1 Each to area(s) in the morning and 1 Each in the evening. [facility] lidocaine HCL (ASPERCREME , LIDOCAINE HCL,) 4 % Crea 0 01-19 00:00: 00 Yes [id number] 1{each} Apply 1 Each to area(s) in the morning and 1 Each in the evening. [facility] lidocaine HCL (ASPERCREME , LIDOCAINE HCL,) 4 % Crea 0 01-19 00:00: 00 Yes [id number] 1{each} Apply 1 Each to area(s) in the morning and 1 Each in the evening. [facility] lidocaine HCL (ASPERCREME , LIDOCAINE HCL,) 4 % Crea 01-19 00:00: 00 Yes [id number] 1{each} Apply 1 Each to area(s) in the morning and 1 Each in the evening. [facility] pantoprazol e 40 mg EC tablet 2022-0 01-01 00:00: 00 Yes [id number] 40mg Take 1 tablet by mouth in the morning. [facility] pantoprazol e 40 mg EC tablet 0 01-01 00:00: 00 Yes [id number] 40mg Take 1 tablet by mouth in the morning. [facility] pantoprazol e 40 mg EC tablet 2022-0 01-01 00:00: 00 Yes [id number] 40mg Take 1 tablet by mouth in the morning. [facility] pantoprazol e 40 mg EC tablet 2022-0 01-01 00:00: 00 Yes [id number] 40mg Take 1 tablet by mouth in the morning. [facility] pantoprazol e 40 mg EC tablet 2022-0 - 00:00: 00 Yes [id number] 40mg Take 1 tablet by mouth in the morning. [facility] pantoprazol e 40 mg EC tablet 2022-0 - 00:00: 00 Yes [id number] 40mg Take 1 tablet by mouth in the morning. [facility] pantoprazol e 40 mg EC tablet 0 01-01 00:00: 00 Yes [id number] 40mg Take 1 tablet by mouth in the morning. [facility] pantoprazol e 40 mg EC tablet 0 01-01 00:00: 00 Yes [id number] 40mg Take 1 tablet by mouth in the morning. [facility] pantoprazol e 40 mg EC tablet 0 01-01 00:00: 00 Yes [id number] 40mg Take 1 tablet by mouth in the morning. [facility] pantoprazol e 40 mg EC tablet 0 01-01 00:00: 00 Yes [id number] 40mg Take 1 tablet by mouth in the morning. [facility] pantoprazol e 40 mg EC tablet 0 01-01 00:00: 00 Yes [id number] 40mg Take 1 tablet by mouth in the morning. [facility] pantoprazol e 40 mg EC tablet 0 01-01 00:00: 00 Yes [id number] 40mg Take 1 tablet by mouth in the morning. [facility] pantoprazol e 40 mg EC tablet 0 01-01 00:00: 00 Yes [id number] 40mg Take 1 tablet by mouth in the morning. [facility] pantoprazol e 40 mg EC tablet 0 01-01 00:00: 00 Yes [id number] 40mg Take 1 tablet by mouth in the morning. [facility] pantoprazol e 40 mg EC tablet 0 01-01 00:00: 00 Yes [id number] 40mg Take 1 tablet by mouth in the morning. [facility] pantoprazol e 40 mg EC tablet 2022-0 01-01 00:00: 00 Yes [id number] 40mg Take 1 tablet by mouth in the morning. [facility] pantoprazol e 40 mg EC tablet 2022-0 - 00:00: 00 Yes [id number] 40mg Take 1 tablet by mouth in the morning. [facility] pantoprazol e 40 mg EC tablet 2022-0 01-01 00:00: 00 Yes [id number] 40mg Take 1 tablet by mouth in the morning. [facility] pantoprazol e 40 mg EC tablet 2022-0 01-01 00:00: 00 Yes [id number] 40mg Take 1 tablet by mouth in the morning. [facility] pantoprazol e 40 mg EC tablet 2022-0 - 00:00: 00 Yes [id number] 40mg Take 1 tablet by mouth in the morning. [facility] pantoprazol e 40 mg EC tablet 2022-0 - 00:00: 00 Yes [id number] 40mg Take 1 tablet by mouth in the morning. [facility] pantoprazol e 40 mg EC tablet 2022-0 01-01 00:00: 00 Yes [id number] 40mg Take 1 tablet by mouth in the morning. [facility] pantoprazol e 40 mg EC tablet 2022-0 01-01 00:00: 00 Yes [id number] 40mg Take 1 tablet by mouth in the morning. [facility] pantoprazol e 40 mg EC tablet 2022-0 01-01 00:00: 00 Yes [id number] 40mg Take 1 tablet by mouth in the morning. [facility] pantoprazol e 40 mg EC tablet 0 01-01 00:00: 00 Yes [id number] 40mg Take 1 tablet by mouth in the morning. [facility] pantoprazol e 40 mg EC tablet 2022-0 01-01 00:00: 00 Yes [id number] 40mg Take 1 tablet by mouth in the morning. [facility] pantoprazol e 40 mg EC tablet 2022-0 01-01 00:00: 00 Yes [id number] 40mg Take 1 tablet by mouth in the morning. [facility] pantoprazol e 40 mg EC tablet 2022-0 - 00:00: 00 Yes [id number] 40mg Take 1 tablet by mouth in the morning. [facility] pantoprazol e 40 mg EC tablet 2022-0 -22 00:00: 00 Yes [id number] 40mg Take 1 tablet by mouth in the morning. [facility] pantoprazol e 40 mg EC tablet 0 01-01 00:00: 00 Yes [id number] 40mg Take 1 tablet by mouth in the morning. [facility] pantoprazol e 40 mg EC tablet 0 01-01 00:00: 00 Yes [id number] 40mg Take 1 tablet by mouth in the morning. [facility] pantoprazol e 40 mg EC tablet 0 01-01 00:00: 00 Yes [id number] 40mg Take 1 tablet by mouth in the morning. [facility] pantoprazol e 40 mg EC tablet 0 01-01 00:00: 00 Yes [id number] 40mg Take 1 tablet by mouth in the morning. [facility] pantoprazol e 40 mg EC tablet 0 01-01 00:00: 00 Yes [id number] 40mg Take 1 tablet by mouth in the morning. [facility] pantoprazol e 40 mg EC tablet 0 01-01 00:00: 00 Yes [id number] 40mg Take 1 tablet by mouth in the morning. [facility] pantoprazol e 40 mg EC tablet 0 01-01 00:00: 00 Yes [id number] 40mg Take 1 tablet by mouth in the morning. [facility] pantoprazol e 40 mg EC tablet 0 01-01 00:00: 00 Yes [id number] 40mg Take 1 tablet by mouth in the morning. [facility] pantoprazol e 40 mg EC tablet 0 01-01 00:00: 00 Yes [id number] 40mg Take 1 tablet by mouth in the morning. [facility] pantoprazol e 40 mg EC tablet 0 01-01 00:00: 00 Yes [id number] 40mg Take 1 tablet by mouth in the morning. [facility] pantoprazol e 40 mg EC tablet 0 01-01 00:00: 00 Yes [id number] 40mg Take 1 tablet by mouth in the morning. [facility] pantoprazol e 40 mg EC tablet 0 01-01 00:00: 00 Yes [id number] 40mg Take 1 tablet by mouth in the morning. [facility] pantoprazol e 40 mg EC tablet 0 01-01 00:00: 00 Yes [id number] 40mg Take 1 tablet by mouth in the morning. [facility] pantoprazol e 40 mg EC tablet 01-01 00:00: 00 Yes [id number] 40mg Take 1 tablet by mouth in the morning. [facility] pantoprazol e 40 mg EC tablet 0 01-01 00:00: 00 Yes [id number] 40mg Take 1 tablet by mouth in the morning. [facility] pantoprazol e 40 mg EC tablet 0 01-01 00:00: 00 Yes [id number] 40mg Take 1 tablet by mouth in the morning. [facility] pantoprazol e 40 mg EC tablet 01-01 00:00: 00 Yes [id number] 40mg Take 1 tablet by mouth in the morning. [facility] pantoprazol e 40 mg EC tablet 0 01-01 00:00: 00 Yes [id number] 40mg Take 1 tablet by mouth in the morning. [facility] pantoprazol e 40 mg EC tablet 01-01 00:00: 00 Yes [id number] 40mg Take 1 tablet by mouth in the morning. [facility] pantoprazol e 40 mg EC tablet 01-01 00:00: 00 Yes [id number] 40mg Take 1 tablet by mouth in the morning. [facility] pantoprazol e 40 mg EC tablet 0 01-01 00:00: 00 Yes [id number] 40mg Take 1 tablet by mouth in the morning. [facility] pantoprazol e 40 mg EC tablet 0 01-01 00:00: 00 Yes [id number] 40mg Take 1 tablet by mouth in the morning. [facility] pantoprazol e 40 mg EC tablet 0 01-01 00:00: 00 Yes [id number] 40mg Take 1 tablet by mouth in the morning. [facility] pantoprazol e 40 mg EC tablet 0 01-01 00:00: 00 Yes [id number] 40mg Take 1 tablet by mouth in the morning. [facility] pantoprazol e 40 mg EC tablet 2022-0 01-01 00:00: 00 Yes [id number] 40mg Take 1 tablet by mouth in the morning. [facility] pantoprazol e 40 mg EC tablet 0 01-01 00:00: 00 Yes [id number] 40mg Take 1 tablet by mouth in the morning. [facility] pantoprazol e 40 mg EC tablet 2022-0 01-01 00:00: 00 Yes [id number] 40mg Take 1 tablet by mouth in the morning. [facility] pantoprazol e 40 mg EC tablet 0 01-01 00:00: 00 Yes [id number] 40mg Take 1 tablet by mouth in the morning. [facility] pantoprazol e 40 mg EC tablet 0 01-01 00:00: 00 Yes [id number] 40mg Take 1 tablet by mouth in the morning. [facility] pantoprazol e 40 mg EC tablet 0 01-01 00:00: 00 Yes [id number] 40mg Take 1 tablet by mouth in the morning. [facility] pantoprazol e 40 mg EC tablet 0 01-01 00:00: 00 Yes [id number] 40mg Take 1 tablet by mouth in the morning. [facility] pantoprazol e 40 mg EC tablet 0 01-01 00:00: 00 Yes [id number] 40mg Take 1 tablet by mouth in the morning. [facility] pantoprazol e 40 mg EC tablet 0 01-01 00:00: 00 Yes [id number] 40mg Take 1 tablet by mouth in the morning. [facility] pantoprazol e 40 mg EC tablet 2022-0 01-01 00:00: 00 Yes [id number] 40mg Take 1 tablet by mouth in the morning. [facility] pantoprazol e 40 mg EC tablet 2022-0 - 00:00: 00 Yes [id number] 40mg Take 1 tablet by mouth in the morning. [facility] pantoprazol e 40 mg EC tablet 0 01-01 00:00: 00 Yes [id number] 40mg Take 1 tablet by mouth in the morning. [facility] pantoprazol e 40 mg EC tablet 0 01-01 00:00: 00 Yes [id number] 40mg Take 1 tablet by mouth in the morning. [facility] pantoprazol e 40 mg EC tablet 0 01-01 00:00: 00 Yes [id number] 40mg Take 1 tablet by mouth in the morning. [facility] pantoprazol e 40 mg EC tablet 0 01-01 00:00: 00 Yes [id number] 40mg Take 1 tablet by mouth in the morning. [facility] pantoprazol e 40 mg EC tablet 0 01-01 00:00: 00 Yes [id number] 40mg Take 1 tablet by mouth in the morning. [facility] pantoprazol e 40 mg EC tablet 0 01-01 00:00: 00 Yes [id number] 40mg Take 1 tablet by mouth in the morning. [facility] pantoprazol e 40 mg EC tablet 0 01-01 00:00: 00 Yes [id number] 40mg Take 1 tablet by mouth in the morning. [facility] pantoprazol e 40 mg EC tablet 0 01-01 00:00: 00 Yes [id number] 40mg Take 1 tablet by mouth in the morning. [facility] pantoprazol e 40 mg EC tablet 0 01-01 00:00: 00 Yes [id number] 40mg Take 1 tablet by mouth in the morning. [facility] pantoprazol e 40 mg EC tablet 0 01-01 00:00: 00 Yes [id number] 40mg Take 1 tablet by mouth in the morning. [facility] pantoprazol e 40 mg EC tablet 0 01-01 00:00: 00 Yes [id number] 40mg Take 1 tablet by mouth in the morning. [facility] pantoprazol e 40 mg EC tablet 2022-0 01-01 00:00: 00 Yes [id number] 40mg Take 1 tablet by mouth in the morning. [facility] pantoprazol e 40 mg EC tablet 0 01-01 00:00: 00 Yes [id number] 40mg Take 1 tablet by mouth in the morning. [facility] pantoprazol e 40 mg EC tablet 01-01 00:00: 00 Yes [id number] 40mg Take 1 tablet by mouth in the morning. [facility] pantoprazol e 40 mg EC tablet 0 01-01 00:00: 00 Yes [id number] 40mg Take 1 tablet by mouth in the morning. [facility] pantoprazol e 40 mg EC tablet 01-01 00:00: 00 Yes [id number] 40mg Take 1 tablet by mouth in the morning. [facility] pantoprazol e 40 mg EC tablet 01-01 00:00: 00 Yes [id number] 40mg Take 1 tablet by mouth in the morning. [facility] pantoprazol e 40 mg EC tablet 0 01-01 00:00: 00 Yes [id number] 40mg Take 1 tablet by mouth in the morning. [facility] pantoprazol e 40 mg EC tablet 01-01 00:00: 00 Yes [id number] 40mg Take 1 tablet by mouth in the morning. [facility] pantoprazol e 40 mg EC tablet 01-01 00:00: 00 Yes [id number] 40mg Take 1 tablet by mouth in the morning. [facility] pantoprazol e 40 mg EC tablet 0 01-01 00:00: 00 Yes [id number] 40mg Take 1 tablet by mouth in the morning. [facility] pantoprazol e 40 mg EC tablet 0 01-01 00:00: 00 Yes [id number] 40mg Take 1 tablet by mouth in the morning. [facility] pantoprazol e 40 mg EC tablet 0 01-01 00:00: 00 Yes [id number] 40mg Take 1 tablet by mouth in the morning. [facility] pantoprazol e 40 mg EC tablet 0 01-01 00:00: 00 Yes [id number] 40mg Take 1 tablet by mouth in the morning. [facility] pantoprazol e 40 mg EC tablet 0 01-01 00:00: 00 Yes [id number] 40mg Take 1 tablet by mouth in the morning. [facility] pantoprazol e 40 mg EC tablet 0 01-01 00:00: 00 Yes [id number] 40mg Take 1 tablet by mouth in the morning. [facility] pantoprazol e 40 mg EC tablet 0 01-01 00:00: 00 Yes [id number] 40mg Take 1 tablet by mouth in the morning. [facility] pantoprazol e 40 mg EC tablet 0 01-01 00:00: 00 Yes [id number] 40mg Take 1 tablet by mouth in the morning. [facility] pantoprazol e 40 mg EC tablet 0 01-01 00:00: 00 Yes [id number] 40mg Take 1 tablet by mouth in the morning. [facility] pantoprazol e 40 mg EC tablet 0 01-01 00:00: 00 Yes [id number] 40mg Take 1 tablet by mouth in the morning. [facility] pantoprazol e 40 mg EC tablet 0 01-01 00:00: 00 Yes [id number] 40mg Take 1 tablet by mouth in the morning. [facility] pantoprazol e 40 mg EC tablet 0 01-01 00:00: 00 Yes [id number] 40mg Take 1 tablet by mouth in the morning. [facility] pantoprazol e 40 mg EC tablet 0 01-01 00:00: 00 Yes [id number] 40mg Take 1 tablet by mouth in the morning. [facility] pantoprazol e 40 mg EC tablet 0 01-01 00:00: 00 Yes [id number] 40mg Take 1 tablet by mouth in the morning. [facility] pantoprazol e 40 mg EC tablet 2022-0 01-01 00:00: 00 Yes [id number] 40mg Take 1 tablet by mouth in the morning. [facility] pantoprazol e 40 mg EC tablet 0 01-01 00:00: 00 Yes [id number] 40mg Take 1 tablet by mouth in the morning. [facility] pantoprazol e 40 mg EC tablet 0 01-01 00:00: 00 Yes [id number] 40mg Take 1 tablet by mouth in the morning. [facility] pantoprazol e 40 mg EC tablet 0 01-01 00:00: 00 Yes [id number] 40mg Take 1 tablet by mouth in the morning. [facility] pantoprazol e 40 mg EC tablet 0 01-01 00:00: 00 Yes [id number] 40mg Take 1 tablet by mouth in the morning. [facility] pantoprazol e 40 mg EC tablet 0 01-01 00:00: 00 Yes [id number] 40mg Take 1 tablet by mouth in the morning. [facility] pantoprazol e 40 mg EC tablet 0 01-01 00:00: 00 Yes [id number] 40mg Take 1 tablet by mouth in the morning. [facility] pantoprazol e 40 mg EC tablet 0 01-01 00:00: 00 Yes [id number] 40mg Take 1 tablet by mouth in the morning. [facility] pantoprazol e 40 mg EC tablet 0 01-01 00:00: 00 Yes [id number] 40mg Take 1 tablet by mouth in the morning. [facility] pantoprazol e 40 mg EC tablet 0 01-01 00:00: 00 Yes [id number] 40mg Take 1 tablet by mouth in the morning. [facility] pantoprazol e 40 mg EC tablet 2022-0 01-01 00:00: 00 Yes [id number] 40mg Take 1 tablet by mouth in the morning. [facility] pantoprazol e 40 mg EC tablet 2022-0 - 00:00: 00 Yes [id number] 40mg Take 1 tablet by mouth in the morning. [facility] pantoprazol e 40 mg EC tablet 2022-0 01-01 00:00: 00 Yes [id number] 40mg Take 1 tablet by mouth in the morning. [facility] pantoprazol e 40 mg EC tablet 0 01-01 00:00: 00 Yes [id number] 40mg Take 1 tablet by mouth in the morning. [facility] pantoprazol e 40 mg EC tablet 0 01-01 00:00: 00 Yes [id number] 40mg Take 1 tablet by mouth in the morning. [facility] pantoprazol e 40 mg EC tablet 0 01-01 00:00: 00 Yes [id number] 40mg Take 1 tablet by mouth in the morning. [facility] pantoprazol e 40 mg EC tablet 0 01-01 00:00: 00 Yes [id number] 40mg Take 1 tablet by mouth in the morning. [facility] pantoprazol e 40 mg EC tablet 0 01-01 00:00: 00 Yes [id number] 40mg Take 1 tablet by mouth in the morning. [facility] pantoprazol e 40 mg EC tablet 0 01-01 00:00: 00 Yes [id number] 40mg Take 1 tablet by mouth in the morning. [facility] pantoprazol e 40 mg EC tablet 01-01 00:00: 00 Yes [id number] 40mg Take 1 tablet by mouth in the morning. [facility] OZEMPIC 2 mg/dose (8 mg/3 mL) PnIj 0 12-27 00:00: 00 Yes INJECT 2 MG UNDER THE SKIN WEEKLY [facility] OZEMPIC 2 mg/dose (8 mg/3 mL) PnIj 30 - 00:00: 00 Yes INJECT 2 MG UNDER THE SKIN WEEKLY [facility] OZEMPIC 2 mg/dose (8 mg/3 mL) PnIj 0 -17 00:00: 00 Yes INJECT 2 MG UNDER THE SKIN WEEKLY [facility] OZEMPIC 2 mg/dose (8 mg/3 mL) PnIj 0 -17 00:00: 00 Yes INJECT 2 MG UNDER THE SKIN WEEKLY [facility] OZEMPIC 2 mg/dose (8 mg/3 mL) PnIj 3-0 5-17 00:00: 00 Yes INJECT 2 MG UNDER THE SKIN WEEKLY [facility] OZEMPIC 2 mg/dose (8 mg/3 mL) PnIj 3-0 5-17 00:00: 00 Yes INJECT 2 MG UNDER THE SKIN WEEKLY [facility] OZEMPIC 2 mg/dose (8 mg/3 mL) PnIj 3-0 -17 00:00: 00 Yes INJECT 2 MG UNDER THE SKIN WEEKLY [facility] OZEMPIC 2 mg/dose (8 mg/3 mL) PnIj 3-0 -17 00:00: 00 Yes INJECT 2 MG UNDER THE SKIN WEEKLY [facility] OZEMPIC 2 mg/dose (8 mg/3 mL) PnIj 2022-0 -17 00:00: 00 Yes INJECT 2 MG UNDER THE SKIN WEEKLY [facility] OZEMPIC 2 mg/dose (8 mg/3 mL) PnIj 3-0 -17 00:00: 00 Yes INJECT 2 MG UNDER THE SKIN WEEKLY [facility] OZEMPIC 2 mg/dose (8 mg/3 mL) PnIj 3-0 -17 00:00: 00 Yes INJECT 2 MG UNDER THE SKIN WEEKLY [facility] OZEMPIC 2 mg/dose (8 mg/3 mL) PnIj 3-0 -17 00:00: 00 Yes INJECT 2 MG UNDER THE SKIN WEEKLY [facility] OZEMPIC 2 mg/dose (8 mg/3 mL) PnIj 3-0 -17 00:00: 00 Yes INJECT 2 MG UNDER THE SKIN WEEKLY [facility] OZEMPIC 2 mg/dose (8 mg/3 mL) PnIj 3-0 -17 00:00: 00 Yes INJECT 2 MG UNDER THE SKIN WEEKLY [facility] OZEMPIC 2 mg/dose (8 mg/3 mL) PnIj 3-0 5-17 00:00: 00 Yes INJECT 2 MG UNDER THE SKIN WEEKLY [facility] OZEMPIC 2 mg/dose (8 mg/3 mL) PnIj 3-0 -17 00:00: 00 Yes INJECT 2 MG UNDER THE SKIN WEEKLY [facility] OZEMPIC 2 mg/dose (8 mg/3 mL) PnIj 3-0 5-17 00:00: 00 Yes INJECT 2 MG UNDER THE SKIN WEEKLY [facility] OZEMPIC 2 mg/dose (8 mg/3 mL) PnIj 3-0 5-17 00:00: 00 Yes INJECT 2 MG UNDER THE SKIN WEEKLY [facility] OZEMPIC 2 mg/dose (8 mg/3 mL) PnIj 3-0 5-17 00:00: 00 Yes INJECT 2 MG UNDER THE SKIN WEEKLY [facility] OZEMPIC 2 mg/dose (8 mg/3 mL) PnIj 3-0 -17 00:00: 00 Yes INJECT 2 MG UNDER THE SKIN WEEKLY [facility] OZEMPIC 2 mg/dose (8 mg/3 mL) PnIj 3-0 5-17 00:00: 00 Yes INJECT 2 MG UNDER THE SKIN WEEKLY [facility] OZEMPIC 2 mg/dose (8 mg/3 mL) PnIj 3-0 5-17 00:00: 00 Yes INJECT 2 MG UNDER THE SKIN WEEKLY [facility] OZEMPIC 2 mg/dose (8 mg/3 mL) PnIj 3-0 -17 00:00: 00 Yes INJECT 2 MG UNDER THE SKIN WEEKLY [facility] OZEMPIC 2 mg/dose (8 mg/3 mL) PnIj 3-0 5-17 00:00: 00 Yes INJECT 2 MG UNDER THE SKIN WEEKLY [facility] OZEMPIC 2 mg/dose (8 mg/3 mL) PnIj 3-0 5-17 00:00: 00 Yes INJECT 2 MG UNDER THE SKIN WEEKLY [facility] OZEMPIC 2 mg/dose (8 mg/3 mL) PnIj 3-0 5-17 00:00: 00 Yes INJECT 2 MG UNDER THE SKIN WEEKLY [facility] OZEMPIC 2 mg/dose (8 mg/3 mL) PnIj 3-0 5-17 00:00: 00 Yes INJECT 2 MG UNDER THE SKIN WEEKLY [facility] OZEMPIC 2 mg/dose (8 mg/3 mL) PnIj 2022-0 -17 00:00: 00 Yes INJECT 2 MG UNDER THE SKIN WEEKLY [facility] OZEMPIC 2 mg/dose (8 mg/3 mL) PnIj 0 17 00:00: 00 Yes INJECT 2 MG UNDER THE SKIN WEEKLY [facility] OZEMPIC 2 mg/dose (8 mg/3 mL) PnIj 0 17 00:00: 00 Yes INJECT 2 MG UNDER THE SKIN WEEKLY [facility] OZEMPIC 2 mg/dose (8 mg/3 mL) PnIj 0 -17 00:00: 00 Yes INJECT 2 MG UNDER THE SKIN WEEKLY [facility] OZEMPIC 2 mg/dose (8 mg/3 mL) PnIj 0 12-27 00:00: 00 Yes INJECT 2 MG UNDER THE SKIN WEEKLY [facility] OZEMPIC 2 mg/dose (8 mg/3 mL) PnIj 2022-0 12-27 00:00: 00 02-27 00:00 :00 No INJECT 2 MG UNDER THE SKIN WEEKLY [facility] OZEMPIC 2 mg/dose (8 mg/3 mL) PnIj 2022-0 12-27 00:00: 00 02-27 00:00 :00 No INJECT 2 MG UNDER THE SKIN WEEKLY [facility] OZEMPIC 2 mg/dose (8 mg/3 mL) PnIj 2022-0 12-27 00:00: 00 02-27 00:00 :00 No INJECT 2 MG UNDER THE SKIN WEEKLY [facility] OZEMPIC 2 mg/dose (8 mg/3 mL) PnIj 2022-0 17 00:00: 00 02-27 00:00 :00 No INJECT 2 MG UNDER THE SKIN WEEKLY [facility] metformin ER 500 mg 24 hr tablet 12-26 00:00: 00 Yes TAKE 2 TABLETS BY MOUTH IN THE MORNING AND TAKE 3 TABLETS IN THE EVENING( NEEDS APPOINTMEN T) [facility] metformin ER 500 mg 24 hr tablet 12-26 00:00: 00 Yes TAKE 2 TABLETS BY MOUTH IN THE MORNING AND TAKE 3 TABLETS IN THE EVENING( NEEDS APPOINTMEN T) [facility] [place] metformin ER 500 mg 24 hr tablet 2023-0 5-16 00:00: 00 Yes TAKE 2 TABLETS BY MOUTH IN THE MORNING AND TAKE 3 TABLETS IN THE EVENING( NEEDS APPOINTMEN T) [facility] metformin ER 500 mg 24 hr tablet 2023-0 5-16 00:00: 00 Yes TAKE 2 TABLETS BY MOUTH IN THE MORNING AND TAKE 3 TABLETS IN THE EVENING( NEEDS APPOINTMEN T) [facility] metformin ER 500 mg 24 hr tablet 2023-0 5-16 00:00: 00 Yes TAKE 2 TABLETS BY MOUTH IN THE MORNING AND TAKE 3 TABLETS IN THE EVENING( NEEDS APPOINTMEN T) [facility] metformin ER 500 mg 24 hr tablet 3-0 5-16 00:00: 00 Yes TAKE 2 TABLETS BY MOUTH IN THE MORNING AND TAKE 3 TABLETS IN THE EVENING( NEEDS APPOINTMEN T) [facility] metformin ER 500 mg 24 hr tablet 2023-0 5-16 00:00: 00 Yes TAKE 2 TABLETS BY MOUTH IN THE MORNING AND TAKE 3 TABLETS IN THE EVENING( NEEDS APPOINTMEN T) [facility] metformin ER 500 mg 24 hr tablet 3-0 5-16 00:00: 00 Yes TAKE 2 TABLETS BY MOUTH IN THE MORNING AND TAKE 3 TABLETS IN THE EVENING( NEEDS APPOINTMEN T) [facility] metformin ER 500 mg 24 hr tablet 3-0 5-16 00:00: 00 Yes TAKE 2 TABLETS BY MOUTH IN THE MORNING AND TAKE 3 TABLETS IN THE EVENING( NEEDS APPOINTMEN T) [facility] [place] metformin ER 500 mg 24 hr tablet 2023-0 5-16 00:00: 00 Yes TAKE 2 TABLETS BY MOUTH IN THE MORNING AND TAKE 3 TABLETS IN THE EVENING( NEEDS APPOINTMEN T) [facility] metformin ER 500 mg 24 hr tablet 2023-0 5-16 00:00: 00 Yes TAKE 2 TABLETS BY MOUTH IN THE MORNING AND TAKE 3 TABLETS IN THE EVENING( NEEDS APPOINTMEN T) [facility] metformin ER 500 mg 24 hr tablet 2023-0 5-16 00:00: 00 Yes TAKE 2 TABLETS BY MOUTH IN THE MORNING AND TAKE 3 TABLETS IN THE EVENING( NEEDS APPOINTMEN T) [facility] [place] metformin ER 500 mg 24 hr tablet 2023-0 16 00:00: 00 Yes TAKE 2 TABLETS BY MOUTH IN THE MORNING AND TAKE 3 TABLETS IN THE EVENING( NEEDS APPOINTMEN T) [facility] metformin ER 500 mg 24 hr tablet 2022-0 16 00:00: 00 01-19 00:00 :00 No TAKE 2 TABLETS BY MOUTH IN THE MORNING AND TAKE 3 TABLETS IN THE EVENING( NEEDS APPOINTMEN T) [facility] metformin ER 500 mg 24 hr tablet 2022-12-26 00:00: 00 01-19 00:00 :00 No TAKE 2 TABLETS BY MOUTH IN THE MORNING AND TAKE 3 TABLETS IN THE EVENING( NEEDS APPOINTMEN T) [facility] metformin ER 500 mg 24 hr tablet 2022-12-26 00:00: 00 01-19 00:00 :00 No TAKE 2 TABLETS BY MOUTH IN THE MORNING AND TAKE 3 TABLETS IN THE EVENING( NEEDS APPOINTMEN T) [facility] metformin ER 500 mg 24 hr tablet 2022-12-26 00:00: 00 01-19 00:00 :00 No TAKE 2 TABLETS BY MOUTH IN THE MORNING AND TAKE 3 TABLETS IN THE EVENING( NEEDS APPOINTMEN T) [facility] metformin ER 500 mg 24 hr tablet 2022-12-26 00:00: 00 01-19 00:00 :00 No TAKE 2 TABLETS BY MOUTH IN THE MORNING AND TAKE 3 TABLETS IN THE EVENING( NEEDS APPOINTMEN T) [facility] metformin ER 500 mg 24 hr tablet 12-26 00:00: 00 01-19 00:00 :00 No TAKE 2 TABLETS BY MOUTH IN THE MORNING AND TAKE 3 TABLETS IN THE EVENING( NEEDS APPOINTMEN T) [facility] JARDIANCE 25 mg Tab 12-12 00:00: 00 Yes [id number] TAKE 1 TABLET BY MOUTH ONCE DAILY IN THE MORNING [facility] meloxicam 15 mg tablet 12-12 00:00: 00 Yes [id number] 15mg Take 1 tablet by mouth in the morning. [facility] meloxicam 15 mg tablet 12-12 00:00: 00 Yes [id number] 15mg Take 1 tablet by mouth in the morning. [facility] JARDIANCE 25 mg Tab 2023-0 5-02 00:00: 00 Yes [id number] TAKE 1 TABLET BY MOUTH ONCE DAILY IN THE MORNING [facility] meloxicam 15 mg tablet 3-0 5-02 00:00: 00 Yes [id number] 15mg Take 1 tablet by mouth in the morning. [facility] JARDIANCE 25 mg Tab 2023-0 5-02 00:00: 00 Yes [id number] TAKE 1 TABLET BY MOUTH ONCE DAILY IN THE MORNING [facility] meloxicam 15 mg tablet 3-0 5-02 00:00: 00 Yes [id number] 15mg Take 1 tablet by mouth in the morning. [facility] JARDIANCE 25 mg Tab 3-0 5-02 00:00: 00 Yes [id number] TAKE 1 TABLET BY MOUTH ONCE DAILY IN THE MORNING [facility] meloxicam 15 mg tablet 3-0 5-02 00:00: 00 Yes [id number] 15mg Take 1 tablet by mouth in the morning. [facility] JARDIANCE 25 mg Tab 3-0 5-02 00:00: 00 Yes [id number] TAKE 1 TABLET BY MOUTH ONCE DAILY IN THE MORNING [facility] meloxicam 15 mg tablet 3-0 5-02 00:00: 00 Yes [id number] 15mg Take 1 tablet by mouth in the morning. [facility] JARDIANCE 25 mg Tab 2023-0 5-02 00:00: 00 Yes [id number] TAKE 1 TABLET BY MOUTH ONCE DAILY IN THE MORNING [facility] meloxicam 15 mg tablet 3-0 5-02 00:00: 00 Yes [id number] 15mg Take 1 tablet by mouth in the morning. [facility] JARDIANCE 25 mg Tab 2023-0 5-02 00:00: 00 Yes [id number] TAKE 1 TABLET BY MOUTH ONCE DAILY IN THE MORNING [facility] meloxicam 15 mg tablet 2023-0 5-02 00:00: 00 Yes [id number] 15mg Take 1 tablet by mouth in the morning. [facility] JARDIANCE 25 mg Tab 2023-0 5-02 00:00: 00 Yes [id number] TAKE 1 TABLET BY MOUTH ONCE DAILY IN THE MORNING [facility] meloxicam 15 mg tablet 3-0 5-02 00:00: 00 Yes [id number] 15mg Take 1 tablet by mouth in the morning. [facility] JARDIANCE 25 mg Tab 2023-0 5-02 00:00: 00 Yes [id number] TAKE 1 TABLET BY MOUTH ONCE DAILY IN THE MORNING [facility] meloxicam 15 mg tablet 3-0 5-02 00:00: 00 Yes [id number] 15mg Take 1 tablet by mouth in the morning. [facility] JARDIANCE 25 mg Tab 2023-0 5-02 00:00: 00 Yes [id number] TAKE 1 TABLET BY MOUTH ONCE DAILY IN THE MORNING [facility] meloxicam 15 mg tablet 3-0 5-02 00:00: 00 Yes [id number] 15mg Take 1 tablet by mouth in the morning. [facility] JARDIANCE 25 mg Tab 2023-0 5-02 00:00: 00 Yes [id number] TAKE 1 TABLET BY MOUTH ONCE DAILY IN THE MORNING [facility] meloxicam 15 mg tablet 3-0 5-02 00:00: 00 Yes [id number] 15mg Take 1 tablet by mouth in the morning. [facility] JARDIANCE 25 mg Tab 2023-0 5-02 00:00: 00 Yes [id number] TAKE 1 TABLET BY MOUTH ONCE DAILY IN THE MORNING [facility] meloxicam 15 mg tablet 3-0 5-02 00:00: 00 Yes [id number] 15mg Take 1 tablet by mouth in the morning. [facility] JARDIANCE 25 mg Tab 2023-0 5-02 00:00: 00 Yes [id number] TAKE 1 TABLET BY MOUTH ONCE DAILY IN THE MORNING [facility] meloxicam 15 mg tablet 2023-0 5-02 00:00: 00 Yes [id number] 15mg Take 1 tablet by mouth in the morning. [facility] JARDIANCE 25 mg Tab 2023-0 5-02 00:00: 00 Yes [id number] TAKE 1 TABLET BY MOUTH ONCE DAILY IN THE MORNING [facility] meloxicam 15 mg tablet 3-0 5-02 00:00: 00 Yes [id number] 15mg Take 1 tablet by mouth in the morning. [facility] JARDIANCE 25 mg Tab 3-0 - 00:00: 00 Yes [id number] TAKE 1 TABLET BY MOUTH ONCE DAILY IN THE MORNING [facility] meloxicam 15 mg tablet 3-0 - 00:00: 00 Yes [id number] 15mg Take 1 tablet by mouth in the morning. [facility] JARDIANCE 25 mg Tab 3-0 5- 00:00: 00 Yes [id number] TAKE 1 TABLET BY MOUTH ONCE DAILY IN THE MORNING [facility] meloxicam 15 mg tablet 3-0 - 00:00: 00 Yes [id number] 15mg Take 1 tablet by mouth in the morning. [facility] JARDIANCE 25 mg Tab 3-0 - 00:00: 00 Yes [id number] TAKE 1 TABLET BY MOUTH ONCE DAILY IN THE MORNING [facility] meloxicam 15 mg tablet 3-0 5-02 00:00: 00 Yes [id number] 15mg Take 1 tablet by mouth in the morning. [facility] JARDIANCE 25 mg Tab 3-0 12-12 00:00: 00 Yes [id number] TAKE 1 TABLET BY MOUTH ONCE DAILY IN THE MORNING [facility] meloxicam 15 mg tablet 3-0 12-12 00:00: 00 Yes [id number] 15mg Take 1 tablet by mouth in the morning. [facility] JARDIANCE 25 mg Tab 3-0 5-02 00:00: 00 Yes [id number] TAKE 1 TABLET BY MOUTH ONCE DAILY IN THE MORNING [facility] meloxicam 15 mg tablet 3-0 5-02 00:00: 00 Yes [id number] 15mg Take 1 tablet by mouth in the morning. [facility] JARDIANCE 25 mg Tab 2023-0 5-02 00:00: 00 Yes [id number] TAKE 1 TABLET BY MOUTH ONCE DAILY IN THE MORNING [facility] meloxicam 15 mg tablet 3-0 -02 00:00: 00 Yes [id number] 15mg Take 1 tablet by mouth in the morning. [facility] JARDIANCE 25 mg Tab 3-0 - 00:00: 00 Yes [id number] TAKE 1 TABLET BY MOUTH ONCE DAILY IN THE MORNING [facility] meloxicam 15 mg tablet 3-0 5-02 00:00: 00 Yes [id number] 15mg Take 1 tablet by mouth in the morning. [facility] JARDIANCE 25 mg Tab 3-0 5-02 00:00: 00 Yes [id number] TAKE 1 TABLET BY MOUTH ONCE DAILY IN THE MORNING [facility] meloxicam 15 mg tablet 3-0 5-02 00:00: 00 Yes [id number] 15mg Take 1 tablet by mouth in the morning. [facility] JARDIANCE 25 mg Tab 3-0 5-02 00:00: 00 Yes [id number] TAKE 1 TABLET BY MOUTH ONCE DAILY IN THE MORNING [facility] meloxicam 15 mg tablet 3-0 5-02 00:00: 00 Yes [id number] 15mg Take 1 tablet by mouth in the morning. [facility] JARDIANCE 25 mg Tab 3-0 5-02 00:00: 00 Yes [id number] TAKE 1 TABLET BY MOUTH ONCE DAILY IN THE MORNING [facility] meloxicam 15 mg tablet 3-0 5-02 00:00: 00 Yes [id number] 15mg Take 1 tablet by mouth in the morning. [facility] JARDIANCE 25 mg Tab 3-0 5-02 00:00: 00 Yes [id number] TAKE 1 TABLET BY MOUTH ONCE DAILY IN THE MORNING [facility] meloxicam 15 mg tablet 3-0 5-02 00:00: 00 Yes [id number] 15mg Take 1 tablet by mouth in the morning. [facility] JARDIANCE 25 mg Tab 2023-0 5-02 00:00: 00 Yes [id number] TAKE 1 TABLET BY MOUTH ONCE DAILY IN THE MORNING [facility] meloxicam 15 mg tablet 3-0 -02 00:00: 00 Yes [id number] 15mg Take 1 tablet by mouth in the morning. [facility] JARDIANCE 25 mg Tab 2023-0 5-02 00:00: 00 Yes [id number] TAKE 1 TABLET BY MOUTH ONCE DAILY IN THE MORNING [facility] meloxicam 15 mg tablet 3-0 5-02 00:00: 00 Yes [id number] 15mg Take 1 tablet by mouth in the morning. [facility] JARDIANCE 25 mg Tab 2023-0 5-02 00:00: 00 Yes [id number] TAKE 1 TABLET BY MOUTH ONCE DAILY IN THE MORNING [facility] meloxicam 15 mg tablet 3-0 5-02 00:00: 00 Yes [id number] 15mg Take 1 tablet by mouth in the morning. [facility] JARDIANCE 25 mg Tab 2023-0 5- 00:00: 00 Yes [id number] TAKE 1 TABLET BY MOUTH ONCE DAILY IN THE MORNING [facility] meloxicam 15 mg tablet 3-0 5-02 00:00: 00 Yes [id number] 15mg Take 1 tablet by mouth in the morning. [facility] JARDIANCE 25 mg Tab 3-0 5- 00:00: 00 Yes [id number] TAKE 1 TABLET BY MOUTH ONCE DAILY IN THE MORNING [facility] meloxicam 15 mg tablet 3-0 5-02 00:00: 00 Yes [id number] 15mg Take 1 tablet by mouth in the morning. [facility] JARDIANCE 25 mg Tab 3-0 5-02 00:00: 00 Yes [id number] TAKE 1 TABLET BY MOUTH ONCE DAILY IN THE MORNING [facility] meloxicam 15 mg tablet 3-0 5-02 00:00: 00 Yes [id number] 15mg Take 1 tablet by mouth in the morning. [facility] JARDIANCE 25 mg Tab 2023-0 5-02 00:00: 00 Yes [id number] TAKE 1 TABLET BY MOUTH ONCE DAILY IN THE MORNING [facility] meloxicam 15 mg tablet 2023-0 5-02 00:00: 00 Yes [id number] 15mg Take 1 tablet by mouth in the morning. [facility] JARDIANCE 25 mg Tab 3-0 - 00:00: 00 Yes [id number] TAKE 1 TABLET BY MOUTH ONCE DAILY IN THE MORNING [facility] meloxicam 15 mg tablet 2022-0 - 00:00: 00 Yes [id number] 15mg Take 1 tablet by mouth in the morning. [facility] JARDIANCE 25 mg Tab 3-0 - 00:00: 00 Yes [id number] TAKE 1 TABLET BY MOUTH ONCE DAILY IN THE MORNING [facility] meloxicam 15 mg tablet 3-0 5- 00:00: 00 Yes [id number] 15mg Take 1 tablet by mouth in the morning. [facility] JARDIANCE 25 mg Tab 3-0 - 00:00: 00 Yes [id number] TAKE 1 TABLET BY MOUTH ONCE DAILY IN THE MORNING [facility] meloxicam 15 mg tablet 2022-0 12-12 00:00: 00 Yes [id number] 15mg Take 1 tablet by mouth in the morning. [facility] JARDIANCE 25 mg Tab 3-0 12-12 00:00: 00 Yes [id number] TAKE 1 TABLET BY MOUTH ONCE DAILY IN THE MORNING [facility] meloxicam 15 mg tablet 2022-0 12-12 00:00: 00 Yes [id number] 15mg Take 1 tablet by mouth in the morning. [facility] JARDIANCE 25 mg Tab 3-0 12-12 00:00: 00 Yes [id number] TAKE 1 TABLET BY MOUTH ONCE DAILY IN THE MORNING [facility] meloxicam 15 mg tablet 3-0 5-02 00:00: 00 Yes [id number] 15mg Take 1 tablet by mouth in the morning. [facility] JARDIANCE 25 mg Tab 3-0 5- 00:00: 00 Yes [id number] TAKE 1 TABLET BY MOUTH ONCE DAILY IN THE MORNING [facility] meloxicam 15 mg tablet 3-0 5-02 00:00: 00 Yes [id number] 15mg Take 1 tablet by mouth in the morning. [facility] JARDIANCE 25 mg Tab 2023-0 5-02 00:00: 00 Yes [id number] TAKE 1 TABLET BY MOUTH ONCE DAILY IN THE MORNING [facility] meloxicam 15 mg tablet 3-0 5-02 00:00: 00 Yes [id number] 15mg Take 1 tablet by mouth in the morning. [facility] JARDIANCE 25 mg Tab 3-0 5-02 00:00: 00 Yes [id number] TAKE 1 TABLET BY MOUTH ONCE DAILY IN THE MORNING [facility] meloxicam 15 mg tablet 3-0 5-02 00:00: 00 Yes [id number] 15mg Take 1 tablet by mouth in the morning. [facility] JARDIANCE 25 mg Tab 3-0 5-02 00:00: 00 Yes [id number] TAKE 1 TABLET BY MOUTH ONCE DAILY IN THE MORNING [facility] meloxicam 15 mg tablet 3-0 5-02 00:00: 00 Yes [id number] 15mg Take 1 tablet by mouth in the morning. [facility] JARDIANCE 25 mg Tab 3-0 5-02 00:00: 00 Yes [id number] TAKE 1 TABLET BY MOUTH ONCE DAILY IN THE MORNING [facility] meloxicam 15 mg tablet 3-0 5-02 00:00: 00 Yes [id number] 15mg Take 1 tablet by mouth in the morning. [facility] JARDIANCE 25 mg Tab 3-0 5-02 00:00: 00 Yes [id number] TAKE 1 TABLET BY MOUTH ONCE DAILY IN THE MORNING [facility] meloxicam 15 mg tablet 3-0 5-02 00:00: 00 Yes [id number] 15mg Take 1 tablet by mouth in the morning. [facility] JARDIANCE 25 mg Tab 2023-0 5-02 00:00: 00 Yes [id number] TAKE 1 TABLET BY MOUTH ONCE DAILY IN THE MORNING [facility] meloxicam 15 mg tablet 3-0 5-02 00:00: 00 Yes [id number] 15mg Take 1 tablet by mouth in the morning. [facility] JARDIANCE 25 mg Tab 2023-0 5- 00:00: 00 Yes [id number] TAKE 1 TABLET BY MOUTH ONCE DAILY IN THE MORNING [facility] JARDIANCE 25 mg Tab 2023-0 5- 00:00: 00 Yes [id number] TAKE 1 TABLET BY MOUTH ONCE DAILY IN THE MORNING [facility] JARDIANCE 25 mg Tab 2023-0 5- 00:00: 00 Yes [id number] TAKE 1 TABLET BY MOUTH ONCE DAILY IN THE MORNING [facility] JARDIANCE 25 mg Tab 2023-0 5- 00:00: 00 Yes [id number] TAKE 1 TABLET BY MOUTH ONCE DAILY IN THE MORNING [facility] JARDIANCE 25 mg Tab 2023-0 5- 00:00: 00 Yes [id number] TAKE 1 TABLET BY MOUTH ONCE DAILY IN THE MORNING [facility] JARDIANCE 25 mg Tab 2023-0 5- 00:00: 00 Yes [id number] TAKE 1 TABLET BY MOUTH ONCE DAILY IN THE MORNING [facility] JARDIANCE 25 mg Tab 2023-0 5- 00:00: 00 Yes [id number] TAKE 1 TABLET BY MOUTH ONCE DAILY IN THE MORNING [facility] JARDIANCE 25 mg Tab 3-0 5- 00:00: 00 03-14 00:00 :00 No [id number] TAKE 1 TABLET BY MOUTH ONCE DAILY IN THE MORNING [facility] JARDIANCE 25 mg Tab 2023-0 5- 00:00: 00 03-14 00:00 :00 No [id number] TAKE 1 TABLET BY MOUTH ONCE DAILY IN THE MORNING [facility] JARDIANCE 25 mg Tab 3-0 5- 00:00: 00 03-14 00:00 :00 No [id number] TAKE 1 TABLET BY MOUTH ONCE DAILY IN THE MORNING [facility] meloxicam 15 mg tablet 2022-0 12-12 00:00: 00 03-13 00:00 :00 No [id number] 15mg Take 1 tablet by mouth in the morning. [facility] meloxicam 15 mg tablet 312-12 00:00: 03-13 00:00 :00 No [id number] 15mg Take 1 tablet by mouth in the morning. [facility] meloxicam 15 mg tablet 12-12 00:00: 00 03-13 00:00 :00 No [id number] 15mg Take 1 tablet by mouth in the morning. [facility] meloxicam 15 mg tablet 12-12 00:00: 00 03-13 00:00 :00 No [id number] 15mg Take 1 tablet by mouth in the morning. [facility] meloxicam 15 mg tablet 12-12 00:00: 00 03-13 00:00 :00 No [id number] 15mg Take 1 tablet by mouth in the morning. [facility] meloxicam 15 mg tablet 12-12 00:00: 00 03-13 00:00 :00 No [id number] 15mg Take 1 tablet by mouth in the morning. [facility] meloxicam 15 mg tablet 12-12 00:00: 03-13 00:00 :00 No [id number] 15mg Take 1 tablet by mouth in the morning. [facility] triamcinolo ne acetonide (KENALOG) injection 80 mg 12-11 17:00: 00 12-11 15:56 :00 No [id number] 80mg [facility] sodium bicarbonate 1 mEq/mL (8.4 %) injection 0.5 mL 12-11 17:00: 12-11 15:55 :00 No [id number] .[id number] [facility] lidocaine 1% (PF) (XYLOCAINE) injection 10 mL 12-11 17:00: 00 12-11 15:55 :00 No [id number] 10mL [facility] lidocaine 1% (PF) (XYLOCAINE) injection 10 mL 12-11 17:00: 00 12-11 15:55 :00 No [id number] 10mL 10 mL, Subcutaneo us, ONCE, 1 dose, On Sun12/11/22 at 1200, Routine [facility] sodium bicarbonate 1 mEq/mL (8.4 %) injection 0.5 mL 12-11 17:00: 00 12-11 15:55 :00 No [id number] .[id number] 0.5 mL, Infiltrati on, ONCE, 1 dose, On Sun12/11/22 at 1200, Routine [facility] triamcinolo ne acetonide (KENALOG) injection 80 mg 12-11 17:00: 00 12-11 15:56 :00 No [id number] 80mg 80 mg, Epidural, ONCE, 1 dose, On Sun12/11/22 at 1200, Routine [facility] triamcinolo ne acetonide (KENALOG) injection 80 mg 12-11 17:00: 00 12-11 15:56 :00 No [id number] 80mg [facility] sodium bicarbonate 1 mEq/mL (8.4 %) injection 0.5 mL 12-11 17:00: 00 12-11 15:55 :00 No [id number] .5mL [facility] lidocaine 1% (PF) (XYLOCAINE) injection 10 mL 12-11 17:00: 00 12-11 15:55 :00 No [id number] 10mL [facility] lidocaine 1% (PF) (XYLOCAINE) injection 10 mL 12-11 17:00: 00 12-11 15:55 :00 No [id number] 10mL 10 mL, Subcutaneo us, ONCE, 1 dose, On Sun12/11/22 at 1200, Routine [facility] sodium bicarbonate 1 mEq/mL (8.4 %) injection 0.5 mL 12-11 17:00: 00 12-11 15:55 :00 No [id number] .[id number] 0.5 mL, Infiltrati on, ONCE, 1 dose, On Sun12/11/22 at 1200, Routine [facility] triamcinolo ne acetonide (KENALOG) injection 80 mg 12-11 17:00: 00 12-11 15:56 :00 No [id number] 80mg 80 mg, Epidural, ONCE, 1 dose, On Sun12/11/22 at 1200, Routine [facility] NaCl 0.9% (NS) injection 10 mL 12-11 16:45: 00 12-11 15:55 :00 No [id number] 10mL [facility] NaCl 0.9% (NS) injection 10 mL 12-11 16:45: 00 12-11 15:55 :00 No [id number] 10mL 10 mL, Infiltrati on, ONCE, 1 dose, On Sun12/11/22 at 1145, Routine [facility] NaCl 0.9% (NS) injection 10 mL 12-11 16:45: 00 12-11 15:55 :00 No [id number] 10mL [facility] NaCl 0.9% (NS) injection 10 mL 12-11 16:45: 00 12-11 15:55 :00 No [id number] 10mL 10 mL, Infiltrati on, ONCE, 1 dose, On Sun12/11/22 at 1145, Routine [facility] NaCl 0.9% (NS) IV infusion 250 mL 12-11 15:30: 00 12-11 15:11 :00 No [id number] 250mL [facility] NaCl 0.9% (NS) IV infusion 250 mL 12-11 15:30: 00 12-11 15:11 :00 No [id number] 250mL at 20 mL/hr, IV Infusion, ONCE, 1 dose, On Sun12/11/22 at 1030, Routine [facility] NaCl 0.9% (NS) IV infusion 250 mL 12-11 15:30: 00 12-11 15:11 :00 No [id number] 250mL [facility] NaCl 0.9% (NS) IV infusion 250 mL 12-11 15:30: 00 12-11 15:11 :00 No [id number] 250mL at 20 mL/hr, IV Infusion, ONCE, 1 dose, On Sun12/11/22 at 1030, Routine [facility] meclizine 25 mg tablet 0 12-07 00:00: 00 Yes [id number] TAKE 1 TABLET BY MOUTH EVERY 8 HOURS NEEDED [facility] meclizine 25 mg tablet 0 12-07 00:00: 00 Yes [id number] TAKE 1 TABLET BY MOUTH EVERY 8 HOURS NEEDED [facility] meclizine 25 mg tablet 0 12-07 00:00: 00 Yes [id number] TAKE 1 TABLET BY MOUTH EVERY 8 HOURS NEEDED [facility] meclizine 25 mg tablet 0 12-07 00:00: 00 Yes [id number] TAKE 1 TABLET BY MOUTH EVERY 8 HOURS NEEDED [facility] meclizine 25 mg tablet 2022-0 12-07 00:00: 00 Yes [id number] TAKE 1 TABLET BY MOUTH EVERY 8 HOURS NEEDED [facility] meclizine 25 mg tablet 0 12-07 00:00: 00 Yes [id number] TAKE 1 TABLET BY MOUTH EVERY 8 HOURS NEEDED [facility] meclizine 25 mg tablet 0 12-07 00:00: 00 Yes [id number] TAKE 1 TABLET BY MOUTH EVERY 8 HOURS NEEDED [facility] meclizine 25 mg tablet 2022-0 12-07 00:00: 00 Yes [id number] TAKE 1 TABLET BY MOUTH EVERY 8 HOURS NEEDED [facility] meclizine 25 mg tablet 2022-0 12-07 00:00: 00 Yes [id number] TAKE 1 TABLET BY MOUTH EVERY 8 HOURS NEEDED [facility] meclizine 25 mg tablet 2022-0 12-07 00:00: 00 Yes [id number] TAKE 1 TABLET BY MOUTH EVERY 8 HOURS NEEDED [facility] meclizine 25 mg tablet 2022-0 12-07 00:00: 00 Yes [id number] TAKE 1 TABLET BY MOUTH EVERY 8 HOURS NEEDED [facility] meclizine 25 mg tablet 3-0 27 00:00: 00 Yes [id number] TAKE 1 TABLET BY MOUTH EVERY 8 HOURS NEEDED [facility] meclizine 25 mg tablet 2023-0 12-07 00:00: 00 Yes [id number] TAKE 1 TABLET BY MOUTH EVERY 8 HOURS NEEDED [facility] meclizine 25 mg tablet 3-0 27 00:00: 00 Yes [id number] TAKE 1 TABLET BY MOUTH EVERY 8 HOURS NEEDED [facility] meclizine 25 mg tablet 3-0 27 00:00: 00 Yes [id number] TAKE 1 TABLET BY MOUTH EVERY 8 HOURS NEEDED [facility] meclizine 25 mg tablet 3-0 12-07 00:00: 00 Yes [id number] TAKE 1 TABLET BY MOUTH EVERY 8 HOURS NEEDED [facility] meclizine 25 mg tablet 3-0 12-07 00:00: 00 Yes [id number] TAKE 1 TABLET BY MOUTH EVERY 8 HOURS NEEDED [facility] meclizine 25 mg tablet 3-0 12-07 00:00: 00 Yes [id number] TAKE 1 TABLET BY MOUTH EVERY 8 HOURS NEEDED [facility] meclizine 25 mg tablet 3-0 12-07 00:00: 00 Yes [id number] TAKE 1 TABLET BY MOUTH EVERY 8 HOURS NEEDED [facility] meclizine 25 mg tablet 3-0 27 00:00: 00 Yes [id number] TAKE 1 TABLET BY MOUTH EVERY 8 HOURS NEEDED [facility] meclizine 25 mg tablet 3-0 27 00:00: 00 Yes [id number] TAKE 1 TABLET BY MOUTH EVERY 8 HOURS NEEDED [facility] meclizine 25 mg tablet 3-0 27 00:00: 00 Yes [id number] TAKE 1 TABLET BY MOUTH EVERY 8 HOURS NEEDED [facility] meclizine 25 mg tablet 3-0 27 00:00: 00 Yes [id number] TAKE 1 TABLET BY MOUTH EVERY 8 HOURS NEEDED [facility] meclizine 25 mg tablet 3-0 27 00:00: 00 Yes [id number] TAKE 1 TABLET BY MOUTH EVERY 8 HOURS NEEDED [facility] meclizine 25 mg tablet 3-0 12-07 00:00: 00 Yes [id number] TAKE 1 TABLET BY MOUTH EVERY 8 HOURS NEEDED [facility] meclizine 25 mg tablet 3-0 27 00:00: 00 Yes [id number] TAKE 1 TABLET BY MOUTH EVERY 8 HOURS NEEDED [facility] meclizine 25 mg tablet 3-0 27 00:00: 00 Yes [id number] TAKE 1 TABLET BY MOUTH EVERY 8 HOURS NEEDED [facility] meclizine 25 mg tablet 3-0 12-07 00:00: 00 Yes [id number] TAKE 1 TABLET BY MOUTH EVERY 8 HOURS NEEDED [facility] meclizine 25 mg tablet 3-0 12-07 00:00: 00 Yes [id number] TAKE 1 TABLET BY MOUTH EVERY 8 HOURS NEEDED [facility] meclizine 25 mg tablet 3-0 27 00:00: 00 Yes [id number] TAKE 1 TABLET BY MOUTH EVERY 8 HOURS NEEDED [facility] meclizine 25 mg tablet 3-0 12-07 00:00: 00 Yes [id number] TAKE 1 TABLET BY MOUTH EVERY 8 HOURS NEEDED [facility] meclizine 25 mg tablet 3-0 27 00:00: 00 Yes [id number] TAKE 1 TABLET BY MOUTH EVERY 8 HOURS NEEDED [facility] meclizine 25 mg tablet 3-0 27 00:00: 00 Yes [id number] TAKE 1 TABLET BY MOUTH EVERY 8 HOURS NEEDED [facility] meclizine 25 mg tablet 3-0 27 00:00: 00 Yes [id number] TAKE 1 TABLET BY MOUTH EVERY 8 HOURS NEEDED [facility] meclizine 25 mg tablet 3-0 27 00:00: 00 Yes [id number] TAKE 1 TABLET BY MOUTH EVERY 8 HOURS NEEDED [facility] meclizine 25 mg tablet 2022-0 12-07 00:00: 00 Yes [id number] TAKE 1 TABLET BY MOUTH EVERY 8 HOURS NEEDED [facility] meclizine 25 mg tablet 2022-0 12-07 00:00: 00 Yes [id number] TAKE 1 TABLET BY MOUTH EVERY 8 HOURS NEEDED [facility] meclizine 25 mg tablet 2022-0 12-07 00:00: 00 Yes [id number] TAKE 1 TABLET BY MOUTH EVERY 8 HOURS NEEDED [facility] meclizine 25 mg tablet 2022-0 12-07 00:00: 00 Yes [id number] TAKE 1 TABLET BY MOUTH EVERY 8 HOURS NEEDED [facility] meclizine 25 mg tablet 2022-0 12-07 00:00: 00 Yes [id number] TAKE 1 TABLET BY MOUTH EVERY 8 HOURS NEEDED [facility] meclizine 25 mg tablet 2022-0 12-07 00:00: 00 Yes [id number] TAKE 1 TABLET BY MOUTH EVERY 8 HOURS NEEDED [facility] meclizine 25 mg tablet 2022-0 12-07 00:00: 00 Yes [id number] TAKE 1 TABLET BY MOUTH EVERY 8 HOURS NEEDED [facility] meclizine 25 mg tablet 2022-0 12-07 00:00: 00 Yes [id number] TAKE 1 TABLET BY MOUTH EVERY 8 HOURS NEEDED [facility] meclizine 25 mg tablet 2022-0 12-07 00:00: 00 Yes [id number] TAKE 1 TABLET BY MOUTH EVERY 8 HOURS NEEDED [facility] meclizine 25 mg tablet 2022-0 12-07 00:00: 00 Yes [id number] TAKE 1 TABLET BY MOUTH EVERY 8 HOURS NEEDED [facility] meclizine 25 mg tablet 2022-0 12-07 00:00: 00 Yes [id number] TAKE 1 TABLET BY MOUTH EVERY 8 HOURS NEEDED [facility] meclizine 25 mg tablet 3-0 12-07 00:00: 00 Yes [id number] TAKE 1 TABLET BY MOUTH EVERY 8 HOURS NEEDED [facility] meclizine 25 mg tablet 2022-0 12-07 00:00: 00 03-06 00:00 :00 No [id number] TAKE 1 TABLET BY MOUTH EVERY 8 HOURS NEEDED Univers [facility] meclizine 25 mg tablet 0 12-07 00:00: 00 03-06 00:00 :00 No [id number] TAKE 1 TABLET BY MOUTH EVERY 8 HOURS NEEDED Univers [facility] meclizine 25 mg tablet 2022-0 12-07 00:00: 00 03-06 00:00 :00 No [id number] TAKE 1 TABLET BY MOUTH EVERY 8 HOURS NEEDED Univers [facility] meclizine 25 mg tablet 2022-0 12-07 00:00: 00 03-06 00:00 :00 No [id number] TAKE 1 TABLET BY MOUTH EVERY 8 HOURS NEEDED Univers [facility] meclizine 25 mg tablet 12-07 00:00: 00 03-06 00:00 :00 No [id number] TAKE 1 TABLET BY MOUTH EVERY 8 HOURS NEEDED Univers [facility] meclizine 25 mg tablet 0 12-07 00:00: 00 03-06 00:00 :00 No [id number] TAKE 1 TABLET BY MOUTH EVERY 8 HOURS NEEDED [facility] ONDANSETRON HCL ORAL 11-29 11:48: 30 11-29 00:00 :00 No Take by mouth. [facility] ONDANSETRON HCL ORAL 11-29 11:48: 30 11-29 00:00 :00 No Take by mouth. [facility] ONDANSETRON HCL ORAL 11-29 11:48: 30 11-29 00:00 :00 No Take by mouth. [facility] fluticasone propionate 50 mcg/actuati on nasal spray 11-29 00:00: 00 Yes [id number] 1{spray } Use 1 [place] in each nostril in the morning. [facility] fluticasone propionate 50 mcg/actuati on nasal spray 419 00:00: 00 Yes [id number] 1{spray } Use 1 [place] in each nostril in the morning. [facility] fluticasone propionate 50 mcg/actuati on nasal spray 3-0 4-19 00:00: 00 Yes [id number] 1{spray } Use 1 [place] in each nostril in the morning. [facility] fluticasone propionate 50 mcg/actuati on nasal spray 3-0 4-19 00:00: 00 Yes [id number] 1{spray } Use 1 [place] in each nostril in the morning. [facility] fluticasone propionate 50 mcg/actuati on nasal spray 3-0 4 00:00: 00 Yes [id number] 1{spray } Use 1 [place] in each nostril in the morning. [facility] fluticasone propionate 50 mcg/actuati on nasal spray 3-0 11-29 00:00: 00 Yes [id number] 1{spray } Use 1 [place] in each nostril in the morning. [facility] fluticasone propionate 50 mcg/actuati on nasal spray 3-0 19 00:00: 00 Yes [id number] 1{spray } Use 1 [place] in each nostril in the morning. [facility] fluticasone propionate 50 mcg/actuati on nasal spray 3-0 19 00:00: 00 Yes [id number] 1{spray } Use 1 [place] in each nostril in the morning. [facility] fluticasone propionate 50 mcg/actuati on nasal spray 3-0 419 00:00: 00 Yes [id number] 1{spray } Use 1 [place] in each nostril in the morning. [facility] fluticasone propionate 50 mcg/actuati on nasal spray 3-0 419 00:00: 00 Yes [id number] 1{spray } Use 1 [place] in each nostril in the morning. [facility] fluticasone propionate 50 mcg/actuati on nasal spray 3-0 4-19 00:00: 00 Yes [id number] 1{spray } Use 1 [place] in each nostril in the morning. [facility] fluticasone propionate 50 mcg/actuati on nasal spray 3-0 4-19 00:00: 00 Yes [id number] 1{spray } Use 1 [place] in each nostril in the morning. [facility] fluticasone propionate 50 mcg/actuati on nasal spray 3-0 4-19 00:00: 00 Yes [id number] 1{spray } Use 1 [place] in each nostril in the morning. [facility] fluticasone propionate 50 mcg/actuati on nasal spray 3-0 419 00:00: 00 Yes [id number] 1{spray } Use 1 [place] in each nostril in the morning. [facility] fluticasone propionate 50 mcg/actuati on nasal spray 3-0 419 00:00: 00 Yes [id number] 1{spray } Use 1 [place] in each nostril in the morning. [facility] fluticasone propionate 50 mcg/actuati on nasal spray 3-0 419 00:00: 00 Yes [id number] 1{spray } Use 1 [place] in each nostril in the morning. [facility] fluticasone propionate 50 mcg/actuati on nasal spray 3-0 419 00:00: 00 Yes [id number] 1{spray } Use 1 [place] in each nostril in the morning. [facility] fluticasone propionate 50 mcg/actuati on nasal spray 3-0 419 00:00: 00 Yes [id number] 1{spray } Use 1 [place] in each nostril in the morning. [facility] fluticasone propionate 50 mcg/actuati on nasal spray 3-0 4-19 00:00: 00 Yes [id number] 1{spray } Use 1 [place] in each nostril in the morning. [facility] fluticasone propionate 50 mcg/actuati on nasal spray 3-0 4-19 00:00: 00 Yes [id number] 1{spray } Use 1 [place] in each nostril in the morning. [facility] fluticasone propionate 50 mcg/actuati on nasal spray 3-0 419 00:00: 00 Yes [id number] 1{spray } Use 1 [place] in each nostril in the morning. [facility] fluticasone propionate 50 mcg/actuati on nasal spray 3-0 4-19 00:00: 00 Yes [id number] 1{spray } Use 1 [place] in each nostril in the morning. [facility] fluticasone propionate 50 mcg/actuati on nasal spray 3-0 419 00:00: 00 Yes [id number] 1{spray } Use 1 [place] in each nostril in the morning. [facility] fluticasone propionate 50 mcg/actuati on nasal spray 3-0 19 00:00: 00 Yes [id number] 1{spray } Use 1 [place] in each nostril in the morning. [facility] fluticasone propionate 50 mcg/actuati on nasal spray 3-0 11-29 00:00: 00 Yes [id number] 1{spray } Use 1 [place] in each nostril in the morning. [facility] fluticasone propionate 50 mcg/actuati on nasal spray 3-0 11-29 00:00: 00 Yes [id number] 1{spray } Use 1 [place] in each nostril in the morning. [facility] fluticasone propionate 50 mcg/actuati on nasal spray 3-0 19 00:00: 00 Yes [id number] 1{spray } Use 1 [place] in each nostril in the morning. [facility] fluticasone propionate 50 mcg/actuati on nasal spray 3-0 419 00:00: 00 Yes [id number] 1{spray } Use 1 [place] in each nostril in the morning. [facility] fluticasone propionate 50 mcg/actuati on nasal spray 3-0 419 00:00: 00 Yes [id number] 1{spray } Use 1 [place] in each nostril in the morning. [facility] fluticasone propionate 50 mcg/actuati on nasal spray 3-0 4-19 00:00: 00 Yes [id number] 1{spray } Use 1 [place] in each nostril in the morning. [facility] fluticasone propionate 50 mcg/actuati on nasal spray 3-0 419 00:00: 00 Yes [id number] 1{spray } Use 1 [place] in each nostril in the morning. [facility] fluticasone propionate 50 mcg/actuati on nasal spray 3-0 419 00:00: 00 Yes [id number] 1{spray } Use 1 [place] in each nostril in the morning. [facility] fluticasone propionate 50 mcg/actuati on nasal spray 3-0 419 00:00: 00 Yes [id number] 1{spray } Use 1 [place] in each nostril in the morning. [facility] fluticasone propionate 50 mcg/actuati on nasal spray 3-0 19 00:00: 00 Yes [id number] 1{spray } Use 1 [place] in each nostril in the morning. [facility] fluticasone propionate 50 mcg/actuati on nasal spray 3-0 19 00:00: 00 Yes [id number] 1{spray } Use 1 [place] in each nostril in the morning. [facility] fluticasone propionate 50 mcg/actuati on nasal spray 3-0 419 00:00: 00 Yes [id number] 1{spray } Use 1 [place] in each nostril in the morning. [facility] fluticasone propionate 50 mcg/actuati on nasal spray 2022-0 19 00:00: 00 Yes [id number] 1{spray } Use 1 [place] in each nostril in the morning. [facility] fluticasone propionate 50 mcg/actuati on nasal spray 3-0 419 00:00: 00 Yes [id number] 1{spray } Use 1 [place] in each nostril in the morning. [facility] fluticasone propionate 50 mcg/actuati on nasal spray 3-0 4-19 00:00: 00 Yes [id number] 1{spray } Use 1 [place] in each nostril in the morning. [facility] fluticasone propionate 50 mcg/actuati on nasal spray 3-0 419 00:00: 00 Yes [id number] 1{spray } Use 1 [place] in each nostril in the morning. [facility] fluticasone propionate 50 mcg/actuati on nasal spray 3-0 419 00:00: 00 Yes [id number] 1{spray } Use 1 [place] in each nostril in the morning. [facility] fluticasone propionate 50 mcg/actuati on nasal spray 3-0 419 00:00: 00 Yes [id number] 1{spray } Use 1 [place] in each nostril in the morning. [facility] fluticasone propionate 50 mcg/actuati on nasal spray 3-0 19 00:00: 00 Yes [id number] 1{spray } Use 1 [place] in each nostril in the morning. [facility] fluticasone propionate 50 mcg/actuati on nasal spray 3-0 11-29 00:00: 00 Yes [id number] 1{spray } Use 1 [place] in each nostril in the morning. [facility] fluticasone propionate 50 mcg/actuati on nasal spray 3-0 11-29 00:00: 00 Yes [id number] 1{spray } Use 1 [place] in each nostril in the morning. [facility] fluticasone propionate 50 mcg/actuati on nasal spray 3-0 19 00:00: 00 Yes [id number] 1{spray } Use 1 [place] in each nostril in the morning. [facility] fluticasone propionate 50 mcg/actuati on nasal spray 3-0 419 00:00: 00 Yes [id number] 1{spray } Use 1 [place] in each nostril in the morning. [facility] fluticasone propionate 50 mcg/actuati on nasal spray 3-0 4-19 00:00: 00 Yes [id number] 1{spray } Use 1 [place] in each nostril in the morning. [facility] fluticasone propionate 50 mcg/actuati on nasal spray 3-0 4-19 00:00: 00 Yes [id number] 1{spray } Use 1 [place] in each nostril in the morning. [facility] fluticasone propionate 50 mcg/actuati on nasal spray 3-0 4-19 00:00: 00 Yes [id number] 1{spray } Use 1 [place] in each nostril in the morning. [facility] fluticasone propionate 50 mcg/actuati on nasal spray 3-0 419 00:00: 00 Yes [id number] 1{spray } Use 1 [place] in each nostril in the morning. [facility] fluticasone propionate 50 mcg/actuati on nasal spray 3-0 419 00:00: 00 Yes [id number] 1{spray } Use 1 [place] in each nostril in the morning. [facility] fluticasone propionate 50 mcg/actuati on nasal spray 3-0 11-29 00:00: 00 Yes [id number] 1{spray } Use 1 [place] in each nostril in the morning. [facility] fluticasone propionate 50 mcg/actuati on nasal spray 2022-0 19 00:00: 00 Yes [id number] 1{spray } Use 1 [place] in each nostril in the morning. [facility] fluticasone propionate 50 mcg/actuati on nasal spray 3-0 419 00:00: 00 Yes [id number] 1{spray } Use 1 [place] in each nostril in the morning. [facility] fluticasone propionate 50 mcg/actuati on nasal spray 3-0 419 00:00: 00 Yes [id number] 1{spray } Use 1 [place] in each nostril in the morning. [facility] fluticasone propionate 50 mcg/actuati on nasal spray 3-0 419 00:00: 00 Yes [id number] 1{spray } Use 1 [place] in each nostril in the morning. [facility] fluticasone propionate 50 mcg/actuati on nasal spray 3-0 4-19 00:00: 00 Yes [id number] 1{spray } Use 1 [place] in each nostril in the morning. [facility] fluticasone propionate 50 mcg/actuati on nasal spray 3-0 419 00:00: 00 Yes [id number] 1{spray } Use 1 [place] in each nostril in the morning. [facility] fluticasone propionate 50 mcg/actuati on nasal spray 3-0 419 00:00: 00 Yes [id number] 1{spray } Use 1 [place] in each nostril in the morning. [facility] fluticasone propionate 50 mcg/actuati on nasal spray 3-0 419 00:00: 00 Yes [id number] 1{spray } Use 1 [place] in each nostril in the morning. [facility] fluticasone propionate 50 mcg/actuati on nasal spray 3-0 419 00:00: 00 Yes [id number] 1{spray } Use 1 [place] in each nostril in the morning. [facility] fluticasone propionate 50 mcg/actuati on nasal spray 3-0 419 00:00: 00 Yes [id number] 1{spray } Use 1 [place] in each nostril in the morning. [facility] fluticasone propionate 50 mcg/actuati on nasal spray 3-0 19 00:00: 00 Yes [id number] 1{spray } Use 1 [place] in each nostril in the morning. [facility] fluticasone propionate 50 mcg/actuati on nasal spray 3-0 419 00:00: 00 Yes [id number] 1{spray } Use 1 [place] in each nostril in the morning. [facility] fluticasone propionate 50 mcg/actuati on nasal spray 3-0 419 00:00: 00 Yes [id number] 1{spray } Use 1 [place] in each nostril in the morning. [facility] fluticasone propionate 50 mcg/actuati on nasal spray 3-0 4-19 00:00: 00 Yes [id number] 1{spray } Use 1 [place] in each nostril in the morning. [facility] fluticasone propionate 50 mcg/actuati on nasal spray 3-0 4-19 00:00: 00 Yes [id number] 1{spray } Use 1 [place] in each nostril in the morning. [facility] fluticasone propionate 50 mcg/actuati on nasal spray 3-0 419 00:00: 00 Yes [id number] 1{spray } Use 1 [place] in each nostril in the morning. [facility] fluticasone propionate 50 mcg/actuati on nasal spray 3-0 419 00:00: 00 Yes [id number] 1{spray } Use 1 [place] in each nostril in the morning. [facility] fluticasone propionate 50 mcg/actuati on nasal spray 3-0 11-29 00:00: 00 Yes [id number] 1{spray } Use 1 [place] in each nostril in the morning. [facility] fluticasone propionate 50 mcg/actuati on nasal spray 3-0 11-29 00:00: 00 Yes [id number] 1{spray } Use 1 [place] in each nostril in the morning. [facility] fluticasone propionate 50 mcg/actuati on nasal spray 3-0 11-29 00:00: 00 Yes [id number] 1{spray } Use 1 [place] in each nostril in the morning. [facility] fluticasone propionate 50 mcg/actuati on nasal spray 3-0 19 00:00: 00 Yes [id number] 1{spray } Use 1 [place] in each nostril in the morning. [facility] fluticasone propionate 50 mcg/actuati on nasal spray 3-0 19 00:00: 00 Yes [id number] 1{spray } Use 1 [place] in each nostril in the morning. [facility] fluticasone propionate 50 mcg/actuati on nasal spray 3-0 19 00:00: 00 Yes [id number] 1{spray } Use 1 [place] in each nostril in the morning. [facility] fluticasone propionate 50 mcg/actuati on nasal spray 3-0 4-19 00:00: 00 Yes [id number] 1{spray } Use 1 [place] in each nostril in the morning. [facility] fluticasone propionate 50 mcg/actuati on nasal spray 3-0 419 00:00: 00 Yes [id number] 1{spray } Use 1 [place] in each nostril in the morning. [facility] fluticasone propionate 50 mcg/actuati on nasal spray 3-0 419 00:00: 00 Yes [id number] 1{spray } Use 1 [place] in each nostril in the morning. [facility] fluticasone propionate 50 mcg/actuati on nasal spray 3-0 19 00:00: 00 Yes [id number] 1{spray } Use 1 [place] in each nostril in the morning. [facility] fluticasone propionate 50 mcg/actuati on nasal spray 2022-0 11-29 00:00: 00 Yes [id number] 1{spray } Use 1 [place] in each nostril in the morning. [facility] fluticasone propionate 50 mcg/actuati on nasal spray 2022-0 11-29 00:00: 00 Yes [id number] 1{spray } Use 1 [place] in each nostril in the morning. [facility] fluticasone propionate 50 mcg/actuati on nasal spray 2022-0 11-29 00:00: 00 Yes [id number] 1{spray } Use 1 [place] in each nostril in the morning. [facility] fluticasone propionate 50 mcg/actuati on nasal spray 3-0 11-29 00:00: 00 Yes [id number] 1{spray } Use 1 [place] in each nostril in the morning. [facility] fluticasone propionate 50 mcg/actuati on nasal spray 3-0 419 00:00: 00 Yes [id number] 1{spray } Use 1 [place] in each nostril in the morning. [facility] fluticasone propionate 50 mcg/actuati on nasal spray 3-0 419 00:00: 00 Yes [id number] 1{spray } Use 1 [place] in each nostril in the morning. [facility] fluticasone propionate 50 mcg/actuati on nasal spray 3-0 419 00:00: 00 Yes [id number] 1{spray } Use 1 [place] in each nostril in the morning. [facility] fluticasone propionate 50 mcg/actuati on nasal spray 3-0 4-19 00:00: 00 Yes [id number] 1{spray } Use 1 [place] in each nostril in the morning. [facility] fluticasone propionate 50 mcg/actuati on nasal spray 3-0 419 00:00: 00 Yes [id number] 1{spray } Use 1 [place] in each nostril in the morning. [facility] fluticasone propionate 50 mcg/actuati on nasal spray 2022-0 11-29 00:00: 00 Yes [id number] 1{spray } Use 1 [place] in each nostril in the morning. [facility] fluticasone propionate 50 mcg/actuati on nasal spray 2022-0 11-29 00:00: 00 Yes [id number] 1{spray } Use 1 [place] in each nostril in the morning. [facility] fluticasone propionate 50 mcg/actuati on nasal spray 2022-0 11-29 00:00: 00 Yes [id number] 1{spray } Use 1 [place] in each nostril in the morning. [facility] fluticasone propionate 50 mcg/actuati on nasal spray 3-0 19 00:00: 00 Yes [id number] 1{spray } Use 1 [place] in each nostril in the morning. [facility] fluticasone propionate 50 mcg/actuati on nasal spray 3-0 419 00:00: 00 Yes [id number] 1{spray } Use 1 [place] in each nostril in the morning. [facility] fluticasone propionate 50 mcg/actuati on nasal spray 3-0 419 00:00: 00 Yes [id number] 1{spray } Use 1 [place] in each nostril in the morning. [facility] fluticasone propionate 50 mcg/actuati on nasal spray 3-0 4-19 00:00: 00 Yes [id number] 1{spray } Use 1 [place] in each nostril in the morning. [facility] fluticasone propionate 50 mcg/actuati on nasal spray 3-0 419 00:00: 00 Yes [id number] 1{spray } Use 1 [place] in each nostril in the morning. [facility] fluticasone propionate 50 mcg/actuati on nasal spray 3-0 419 00:00: 00 Yes [id number] 1{spray } Use 1 [place] in each nostril in the morning. [facility] fluticasone propionate 50 mcg/actuati on nasal spray 3-0 19 00:00: 00 Yes [id number] 1{spray } Use 1 [place] in each nostril in the morning. [facility] fluticasone propionate 50 mcg/actuati on nasal spray 2022-0 11-29 00:00: 00 Yes [id number] 1{spray } Use 1 [place] in each nostril in the morning. [facility] fluticasone propionate 50 mcg/actuati on nasal spray 2022-0 19 00:00: 00 Yes [id number] 1{spray } Use 1 [place] in each nostril in the morning. [facility] fluticasone propionate 50 mcg/actuati on nasal spray 3-0 419 00:00: 00 Yes [id number] 1{spray } Use 1 [place] in each nostril in the morning. [facility] fluticasone propionate 50 mcg/actuati on nasal spray 3-0 19 00:00: 00 Yes [id number] 1{spray } Use 1 [place] in each nostril in the morning. [facility] fluticasone propionate 50 mcg/actuati on nasal spray 3-0 419 00:00: 00 Yes [id number] 1{spray } Use 1 [place] in each nostril in the morning. [facility] fluticasone propionate 50 mcg/actuati on nasal spray 3-0 4-19 00:00: 00 Yes [id number] 1{spray } Use 1 [place] in each nostril in the morning. [facility] fluticasone propionate 50 mcg/actuati on nasal spray 3-0 419 00:00: 00 Yes [id number] 1{spray } Use 1 [place] in each nostril in the morning. [facility] fluticasone propionate 50 mcg/actuati on nasal spray 3-0 4-19 00:00: 00 Yes [id number] 1{spray } Use 1 [place] in each nostril in the morning. [facility] fluticasone propionate 50 mcg/actuati on nasal spray 3-0 4-19 00:00: 00 Yes [id number] 1{spray } Use 1 [place] in each nostril in the morning. [facility] fluticasone propionate 50 mcg/actuati on nasal spray 3-0 19 00:00: 00 Yes [id number] 1{spray } Use 1 [place] in each nostril in the morning. [facility] fluticasone propionate 50 mcg/actuati on nasal spray 3-0 19 00:00: 00 Yes [id number] 1{spray } Use 1 [place] in each nostril in the morning. [facility] fluticasone propionate 50 mcg/actuati on nasal spray 3-0 19 00:00: 00 Yes [id number] 1{spray } Use 1 [place] in each nostril in the morning. [facility] fluticasone propionate 50 mcg/actuati on nasal spray 3-0 19 00:00: 00 Yes [id number] 1{spray } Use 1 [place] in each nostril in the morning. [facility] fluticasone propionate 50 mcg/actuati on nasal spray 3-0 419 00:00: 00 Yes [id number] 1{spray } Use 1 [place] in each nostril in the morning. [facility] fluticasone propionate 50 mcg/actuati on nasal spray 3-0 4-19 00:00: 00 Yes [id number] 1{spray } Use 1 [place] in each nostril in the morning. [facility] fluticasone propionate 50 mcg/actuati on nasal spray 3-0 4-19 00:00: 00 Yes [id number] 1{spray } Use 1 [place] in each nostril in the morning. [facility] fluticasone propionate 50 mcg/actuati on nasal spray 2022-0 19 00:00: 00 Yes [id number] 1{spray } Use 1 [place] in each nostril in the morning. [facility] fluticasone propionate 50 mcg/actuati on nasal spray 3-0 11-29 00:00: 00 Yes [id number] 1{spray } Use 1 [place] in each nostril in the morning. [facility] fluticasone propionate 50 mcg/actuati on nasal spray 3-0 11-29 00:00: 00 Yes [id number] 1{spray } Use 1 [place] in each nostril in the morning. [facility] fluticasone propionate 50 mcg/actuati on nasal spray 2022-0 11-29 00:00: 00 Yes [id number] 1{spray } Use 1 [place] in each nostril in the morning. [facility] fluticasone propionate 50 mcg/actuati on nasal spray 2022-0 11-29 00:00: 00 Yes [id number] 1{spray } Use 1 [place] in each nostril in the morning. [facility] fluticasone propionate 50 mcg/actuati on nasal spray 3-0 19 00:00: 00 Yes [id number] 1{spray } Use 1 [place] in each nostril in the morning. [facility] fluticasone propionate 50 mcg/actuati on nasal spray 2022-0 11-29 00:00: 00 Yes [id number] 1{spray } Use 1 [place] in each nostril in the morning. [facility] fluticasone propionate 50 mcg/actuati on nasal spray 3-0 19 00:00: 00 Yes [id number] 1{spray } Use 1 [place] in each nostril in the morning. [facility] fluticasone propionate 50 mcg/actuati on nasal spray 3-0 19 00:00: 00 Yes [id number] 1{spray } Use 1 [place] in each nostril in the morning. [facility] fluticasone propionate 50 mcg/actuati on nasal spray 3-0 19 00:00: 00 Yes [id number] 1{spray } Use 1 [place] in each nostril in the morning. [facility] fluticasone propionate 50 mcg/actuati on nasal spray 3-0 419 00:00: 00 Yes [id number] 1{spray } Use 1 [place] in each nostril in the morning. [facility] fluticasone propionate 50 mcg/actuati on nasal spray 3-0 11-29 00:00: 00 Yes [id number] 1{spray } Use 1 [place] in each nostril in the morning. [facility] fluticasone propionate 50 mcg/actuati on nasal spray 2022-0 11-29 00:00: 00 Yes [id number] 1{spray } Use 1 [place] in each nostril in the morning. [facility] fluticasone propionate 50 mcg/actuati on nasal spray 2022-0 11-29 00:00: 00 Yes [id number] 1{spray } Use 1 [place] in each nostril in the morning. [facility] fluticasone propionate 50 mcg/actuati on nasal spray 2022-0 11-29 00:00: 00 Yes [id number] 1{spray } Use 1 [place] in each nostril in the morning. [facility] fluticasone propionate 50 mcg/actuati on nasal spray 3-0 11-29 00:00: 00 Yes [id number] 1{spray } Use 1 [place] in each nostril in the morning. [facility] fluticasone propionate 50 mcg/actuati on nasal spray 3-0 19 00:00: 00 Yes [id number] 1{spray } Use 1 [place] in each nostril in the morning. [facility] fluticasone propionate 50 mcg/actuati on nasal spray 3-0 19 00:00: 00 Yes [id number] 1{spray } Use 1 [place] in each nostril in the morning. [facility] fluticasone propionate 50 mcg/actuati on nasal spray 3-0 419 00:00: 00 Yes [id number] 1{spray } Use 1 [place] in each nostril in the morning. [facility] fluticasone propionate 50 mcg/actuati on nasal spray 3-0 419 00:00: 00 Yes [id number] 1{spray } Use 1 [place] in each nostril in the morning. [facility] fluticasone propionate 50 mcg/actuati on nasal spray 3-0 419 00:00: 00 Yes [id number] 1{spray } Use 1 [place] in each nostril in the morning. [facility] fluticasone propionate 50 mcg/actuati on nasal spray 3-0 11-29 00:00: 00 Yes [id number] 1{spray } Use 1 [place] in each nostril in the morning. [facility] fluticasone propionate 50 mcg/actuati on nasal spray 2022-0 11-29 00:00: 00 Yes [id number] 1{spray } Use 1 [place] in each nostril in the morning. [facility] fluticasone propionate 50 mcg/actuati on nasal spray 3-0 11-29 00:00: 00 Yes [id number] 1{spray } Use 1 [place] in each nostril in the morning. [facility] fluticasone propionate 50 mcg/actuati on nasal spray 3-0 11-29 00:00: 00 Yes [id number] 1{spray } Use 1 [place] in each nostril in the morning. [facility] fluticasone propionate 50 mcg/actuati on nasal spray 3-0 19 00:00: 00 Yes [id number] 1{spray } Use 1 [place] in each nostril in the morning. [facility] fluticasone propionate 50 mcg/actuati on nasal spray 3-0 419 00:00: 00 Yes [id number] 1{spray } Use 1 [place] in each nostril in the morning. [facility] fluticasone propionate 50 mcg/actuati on nasal spray 3-0 4-19 00:00: 00 Yes [id number] 1{spray } Use 1 [place] in each nostril in the morning. [facility] fluticasone propionate 50 mcg/actuati on nasal spray 11-29 00:00: 00 Yes [id number] 1{spray } Use 1 [place] in each nostril in the morning. [facility] fluticasone propionate 50 mcg/actuati on nasal spray 19 00:00: 00 Yes [id number] 1{spray } Use 1 [place] in each nostril in the morning. [facility] proMETHazin e 12.5 mg tablet 11-07 00:00: 00 Yes [id number] 25mg Take 2 tablets by mouth every 6 (six) hours as needed for Nausea and Vomiting (N/V). [facility] proMETHazin e 12.5 mg tablet 2022-11-07 00:00: 00 Yes [id number] 25mg Take 2 tablets by mouth every 6 (six) hours as needed for Nausea and Vomiting (N/V). [facility] proMETHazin e 12.5 mg tablet 0 11-07 00:00: 00 Yes [id number] 25mg Take 2 tablets by mouth every 6 (six) hours as needed for Nausea and Vomiting (N/V). [facility] proMETHazin e 12.5 mg tablet 0 11-07 00:00: 00 Yes [id number] 25mg Take 2 tablets by mouth every 6 (six) hours as needed for Nausea and Vomiting (N/V). [facility] proMETHazin e 12.5 mg tablet 2022-0 28 00:00: 00 Yes [id number] 25mg Take 2 tablets by mouth every 6 (six) hours as needed for Nausea and Vomiting (N/V). [facility] proMETHazin e 12.5 mg tablet 2022-0 -28 00:00: 00 Yes [id number] 25mg Take 2 tablets by mouth every 6 (six) hours as needed for Nausea and Vomiting (N/V). [facility] proMETHazin e 12.5 mg tablet 2022-0 -28 00:00: 00 Yes [id number] 25mg Take 2 tablets by mouth every 6 (six) hours as needed for Nausea and Vomiting (N/V). [facility] proMETHazin e 12.5 mg tablet 3-0 3-28 00:00: 00 Yes [id number] 25mg Take 2 tablets by mouth every 6 (six) hours as needed for Nausea and Vomiting (N/V). [facility] proMETHazin e 12.5 mg tablet 2023-0 3-28 00:00: 00 Yes [id number] 25mg Take 2 tablets by mouth every 6 (six) hours as needed for Nausea and Vomiting (N/V). [facility] proMETHazin e 12.5 mg tablet 3-0 3-28 00:00: 00 Yes [id number] 25mg Take 2 tablets by mouth every 6 (six) hours as needed for Nausea and Vomiting (N/V). [facility] proMETHazin e 12.5 mg tablet 3-0 3-28 00:00: 00 Yes [id number] 25mg Take 2 tablets by mouth every 6 (six) hours as needed for Nausea and Vomiting (N/V). [facility] proMETHazin e 12.5 mg tablet 3-0 3-28 00:00: 00 Yes [id number] 25mg Take 2 tablets by mouth every 6 (six) hours as needed for Nausea and Vomiting (N/V). [facility] proMETHazin e 12.5 mg tablet 3-0 3-28 00:00: 00 Yes [id number] 25mg Take 2 tablets by mouth every 6 (six) hours as needed for Nausea and Vomiting (N/V). [facility] proMETHazin e 12.5 mg tablet 3-0 3-28 00:00: 00 Yes [id number] 25mg Take 2 tablets by mouth every 6 (six) hours as needed for Nausea and Vomiting (N/V). [facility] proMETHazin e 12.5 mg tablet 3-0 3-28 00:00: 00 Yes [id number] 25mg Take 2 tablets by mouth every 6 (six) hours as needed for Nausea and Vomiting (N/V). [facility] proMETHazin e 12.5 mg tablet 2023-0 3-28 00:00: 00 Yes [id number] 25mg Take 2 tablets by mouth every 6 (six) hours as needed for Nausea and Vomiting (N/V). [facility] proMETHazin e 12.5 mg tablet 0 11-07 00:00: 00 Yes [id number] 25mg Take 2 tablets by mouth every 6 (six) hours as needed for Nausea and Vomiting (N/V). [facility] proMETHazin e 12.5 mg tablet 2022-0 11-07 00:00: 00 Yes [id number] 25mg Take 2 tablets by mouth every 6 (six) hours as needed for Nausea and Vomiting (N/V). [facility] proMETHazin e 12.5 mg tablet 2022-0 11-07 00:00: 00 Yes [id number] 25mg Take 2 tablets by mouth every 6 (six) hours as needed for Nausea and Vomiting (N/V). [facility] proMETHazin e 12.5 mg tablet 2022-0 11-07 00:00: 00 Yes [id number] 25mg Take 2 tablets by mouth every 6 (six) hours as needed for Nausea and Vomiting (N/V). [facility] proMETHazin e 12.5 mg tablet 0 11-07 00:00: 00 Yes [id number] 25mg Take 2 tablets by mouth every 6 (six) hours as needed for Nausea and Vomiting (N/V). [facility] proMETHazin e 12.5 mg tablet 2022-0 11-07 00:00: 00 Yes [id number] 25mg Take 2 tablets by mouth every 6 (six) hours as needed for Nausea and Vomiting (N/V). [facility] proMETHazin e 12.5 mg tablet 3-0 -28 00:00: 00 Yes [id number] 25mg Take 2 tablets by mouth every 6 (six) hours as needed for Nausea and Vomiting (N/V). [facility] proMETHazin e 12.5 mg tablet 2022-0 28 00:00: 00 Yes [id number] 25mg Take 2 tablets by mouth every 6 (six) hours as needed for Nausea and Vomiting (N/V). [facility] proMETHazin e 12.5 mg tablet 3-0 -28 00:00: 00 Yes [id number] 25mg Take 2 tablets by mouth every 6 (six) hours as needed for Nausea and Vomiting (N/V). [facility] proMETHazin e 12.5 mg tablet 3-0 3-28 00:00: 00 Yes [id number] 25mg Take 2 tablets by mouth every 6 (six) hours as needed for Nausea and Vomiting (N/V). [facility] proMETHazin e 12.5 mg tablet 3-0 -28 00:00: 00 Yes [id number] 25mg Take 2 tablets by mouth every 6 (six) hours as needed for Nausea and Vomiting (N/V). [facility] proMETHazin e 12.5 mg tablet 2022-0 -28 00:00: 00 Yes [id number] 25mg Take 2 tablets by mouth every 6 (six) hours as needed for Nausea and Vomiting (N/V). [facility] proMETHazin e 12.5 mg tablet 3-0 28 00:00: 00 Yes [id number] 25mg Take 2 tablets by mouth every 6 (six) hours as needed for Nausea and Vomiting (N/V). [facility] proMETHazin e 12.5 mg tablet 3-0 28 00:00: 00 Yes [id number] 25mg Take 2 tablets by mouth every 6 (six) hours as needed for Nausea and Vomiting (N/V). [facility] proMETHazin e 12.5 mg tablet 3-0 -28 00:00: 00 Yes [id number] 25mg Take 2 tablets by mouth every 6 (six) hours as needed for Nausea and Vomiting (N/V). [facility] proMETHazin e 12.5 mg tablet 3-0 3-28 00:00: 00 Yes [id number] 25mg Take 2 tablets by mouth every 6 (six) hours as needed for Nausea and Vomiting (N/V). [facility] proMETHazin e 12.5 mg tablet 3-0 3-28 00:00: 00 Yes [id number] 25mg Take 2 tablets by mouth every 6 (six) hours as needed for Nausea and Vomiting (N/V). [facility] proMETHazin e 12.5 mg tablet 2022-0 -28 00:00: 00 Yes [id number] 25mg Take 2 tablets by mouth every 6 (six) hours as needed for Nausea and Vomiting (N/V). [facility] proMETHazin e 12.5 mg tablet 3-0 3-28 00:00: 00 Yes [id number] 25mg Take 2 tablets by mouth every 6 (six) hours as needed for Nausea and Vomiting (N/V). [facility] proMETHazin e 12.5 mg tablet 3-0 -28 00:00: 00 Yes [id number] 25mg Take 2 tablets by mouth every 6 (six) hours as needed for Nausea and Vomiting (N/V). [facility] proMETHazin e 12.5 mg tablet 2022-0 -28 00:00: 00 Yes [id number] 25mg Take 2 tablets by mouth every 6 (six) hours as needed for Nausea and Vomiting (N/V). [facility] proMETHazin e 12.5 mg tablet 3-0 -28 00:00: 00 Yes [id number] 25mg Take 2 tablets by mouth every 6 (six) hours as needed for Nausea and Vomiting (N/V). [facility] proMETHazin e 12.5 mg tablet 3-0 -28 00:00: 00 Yes [id number] 25mg Take 2 tablets by mouth every 6 (six) hours as needed for Nausea and Vomiting (N/V). [facility] proMETHazin e 12.5 mg tablet 3-0 3-28 00:00: 00 Yes [id number] 25mg Take 2 tablets by mouth every 6 (six) hours as needed for Nausea and Vomiting (N/V). [facility] proMETHazin e 12.5 mg tablet 3-0 3-28 00:00: 00 Yes [id number] 25mg Take 2 tablets by mouth every 6 (six) hours as needed for Nausea and Vomiting (N/V). [facility] proMETHazin e 12.5 mg tablet 3-0 3-28 00:00: 00 Yes [id number] 25mg Take 2 tablets by mouth every 6 (six) hours as needed for Nausea and Vomiting (N/V). [facility] proMETHazin e 12.5 mg tablet 3-0 3-28 00:00: 00 Yes [id number] 25mg Take 2 tablets by mouth every 6 (six) hours as needed for Nausea and Vomiting (N/V). [facility] proMETHazin e 12.5 mg tablet 3-0 3-28 00:00: 00 Yes [id number] 25mg Take 2 tablets by mouth every 6 (six) hours as needed for Nausea and Vomiting (N/V). [facility] proMETHazin e 12.5 mg tablet 3-0 3-28 00:00: 00 01-25 00:00 :00 No [id number] 25mg Take 2 tablets by mouth every 6 (six) hours as needed for Nausea and Vomiting (N/V). [facility] proMETHazin e 12.5 mg tablet 3-0 3-28 00:00: 00 01-25 00:00 :00 No [id number] 25mg Take 2 tablets by mouth every 6 (six) hours as needed for Nausea and Vomiting (N/V). [facility] proMETHazin e 12.5 mg tablet 3-0 3-28 00:00: 00 01-25 00:00 :00 No [id number] 25mg Take 2 tablets by mouth every 6 (six) hours as needed for Nausea and Vomiting (N/V). [facility] proMETHazin e 12.5 mg tablet 3-0 3-28 00:00: 00 01-25 00:00 :00 No [id number] 25mg Take 2 tablets by mouth every 6 (six) hours as needed for Nausea and Vomiting (N/V). [facility] proMETHazin e 12.5 mg tablet 3-0 3-28 00:00: 00 01-25 00:00 :00 No [id number] 25mg Take 2 tablets by mouth every 6 (six) hours as needed for Nausea and Vomiting (N/V). [facility] semaglutide (OZEMPIC) 1 mg/dose (4 mg/3 mL) PnIj 2023-0 3-20 00:00: 00 Yes [id number] 1mg inject 1 mg under the skin weekly. [facility] semaglutide (OZEMPIC) 1 mg/dose (4 mg/3 mL) PnIj 2023-0 3-20 00:00: 00 Yes [id number] 1mg inject 1 mg under the skin weekly. [facility] semaglutide (OZEMPIC) 1 mg/dose (4 mg/3 mL) PnIj 2023-0 3-20 00:00: 00 Yes [id number] 1mg inject 1 mg under the skin weekly. [facility] semaglutide (OZEMPIC) 1 mg/dose (4 mg/3 mL) PnIj 2023-0 3-20 00:00: 00 Yes [id number] 1mg inject 1 mg under the skin weekly. [facility] semaglutide (OZEMPIC) 1 mg/dose (4 mg/3 mL) PnIj 2023-0 3-20 00:00: 00 Yes [id number] 1mg inject 1 mg under the skin weekly. [facility] semaglutide (OZEMPIC) 1 mg/dose (4 mg/3 mL) PnIj 2023-0 3-20 00:00: 00 Yes [id number] 1mg inject 1 mg under the skin weekly. [facility] semaglutide (OZEMPIC) 1 mg/dose (4 mg/3 mL) PnIj 2023-0 3-20 00:00: 00 Yes [id number] 1mg inject 1 mg under the skin weekly. [facility] semaglutide (OZEMPIC) 1 mg/dose (4 mg/3 mL) PnIj 2023-0 3-20 00:00: 00 Yes [id number] 1mg inject 1 mg under the skin weekly. [facility] semaglutide (OZEMPIC) 1 mg/dose (4 mg/3 mL) PnIj 2023-0 3-20 00:00: 00 Yes [id number] 1mg inject 1 mg under the skin weekly. [facility] semaglutide (OZEMPIC) 1 mg/dose (4 mg/3 mL) PnIj 2023-0 3-20 00:00: 00 Yes [id number] 1mg inject 1 mg under the skin weekly. [facility] semaglutide (OZEMPIC) 1 mg/dose (4 mg/3 mL) PnIj 2023-0 3-20 00:00: 00 Yes [id number] 1mg inject 1 mg under the skin weekly. [facility] semaglutide (OZEMPIC) 1 mg/dose (4 mg/3 mL) PnIj 2023-0 3-20 00:00: 00 Yes [id number] 1mg inject 1 mg under the skin weekly. [facility] (OZEMPIC) 1 mg/dose (4 mg/3 mL) PnIj 2023-0 3-20 00:00: 00 Yes [id number] 1mg inject 1 mg under the skin weekly. [facility] semaglutide (OZEMPIC) 1 mg/dose (4 mg/3 mL) PnIj 2023-0 3-20 00:00: 00 Yes [id number] 1mg inject 1 mg under the skin weekly. [facility] semaglutide (OZEMPIC) 1 mg/dose (4 mg/3 mL) PnIj 2023-0 3-20 00:00: 00 Yes [id number] 1mg inject 1 mg under the skin weekly. [facility] semaglutide (OZEMPIC) 1 mg/dose (4 mg/3 mL) PnIj 2023-0 3-20 00:00: 00 Yes [id number] 1mg inject 1 mg under the skin weekly. [facility] semaglutide (OZEMPIC) 1 mg/dose (4 mg/3 mL) PnIj 2023-0 3-20 00:00: 00 Yes [id number] 1mg inject 1 mg under the skin weekly. [facility] semaglutide (OZEMPIC) 1 mg/dose (4 mg/3 mL) PnIj 2023-0 3-20 00:00: 00 Yes [id number] 1mg inject 1 mg under the skin weekly. [facility] semaglutide (OZEMPIC) 1 mg/dose (4 mg/3 mL) PnIj 2023-0 3-20 00:00: 00 Yes [id number] 1mg inject 1 mg under the skin weekly. [facility] semaglutide (OZEMPIC) 1 mg/dose (4 mg/3 mL) PnIj 2023-0 3-20 00:00: 00 Yes [id number] 1mg inject 1 mg under the skin weekly. [facility] semaglutide (OZEMPIC) 1 mg/dose (4 mg/3 mL) PnIj 2023-0 3-20 00:00: 00 Yes [id number] 1mg inject 1 mg under the skin weekly. [facility] semaglutide (OZEMPIC) 1 mg/dose (4 mg/3 mL) PnIj 2023-0 3-20 00:00: 00 Yes [id number] 1mg inject 1 mg under the skin weekly. [facility] semaglutide (OZEMPIC) 1 mg/dose (4 mg/3 mL) PnIj 2023-0 3-20 00:00: 00 Yes [id number] 1mg inject 1 mg under the skin weekly. [facility] semaglutide (OZEMPIC) 1 mg/dose (4 mg/3 mL) PnIj 2023-0 3-20 00:00: 00 Yes [id number] 1mg inject 1 mg under the skin weekly. [facility] semaglutide (OZEMPIC) 1 mg/dose (4 mg/3 mL) PnIj 2023-0 3-20 00:00: 00 Yes [id number] 1mg inject 1 mg under the skin weekly. [facility] semaglutide (OZEMPIC) 1 mg/dose (4 mg/3 mL) PnIj 2023-0 3-20 00:00: 00 Yes [id number] 1mg inject 1 mg under the skin weekly. [facility] semaglutide (OZEMPIC) 1 mg/dose (4 mg/3 mL) PnIj 2023-0 3-20 00:00: 00 Yes [id number] 1mg inject 1 mg under the skin weekly. [facility] semaglutide (OZEMPIC) 1 mg/dose (4 mg/3 mL) PnIj 2023-0 3-20 00:00: 00 Yes [id number] 1mg inject 1 mg under the skin weekly. [facility] semaglutide (OZEMPIC) 1 mg/dose (4 mg/3 mL) PnIj 2023-0 3-20 00:00: 00 Yes [id number] 1mg inject 1 mg under the skin weekly. [facility] semaglutide (OZEMPIC) 1 mg/dose (4 mg/3 mL) PnIj 2023-0 3-20 00:00: 00 Yes [id number] 1mg inject 1 mg under the skin weekly. [facility] semaglutide (OZEMPIC) 1 mg/dose (4 mg/3 mL) PnIj 2023-0 3-20 00:00: 00 Yes [id number] 1mg inject 1 mg under the skin weekly. [facility] semaglutide (OZEMPIC) 1 mg/dose (4 mg/3 mL) PnIj 2023-0 3-20 00:00: 00 Yes [id number] 1mg inject 1 mg under the skin weekly. [facility] semaglutide (OZEMPIC) 1 mg/dose (4 mg/3 mL) PnIj 2023-0 3-20 00:00: 00 Yes [id number] 1mg inject 1 mg under the skin weekly. [facility] semaglutide (OZEMPIC) 1 mg/dose (4 mg/3 mL) PnIj 2023-0 3-20 00:00: 00 Yes [id number] 1mg inject 1 mg under the skin weekly. [facility] semaglutide (OZEMPIC) 1 mg/dose (4 mg/3 mL) PnIj 2023-0 3-20 00:00: 00 Yes [id number] 1mg inject 1 mg under the skin weekly. [facility] semaglutide (OZEMPIC) 1 mg/dose (4 mg/3 mL) PnIj 2023-0 3-20 00:00: 00 Yes [id number] 1mg inject 1 mg under the skin weekly. [facility] semaglutide (OZEMPIC) 1 mg/dose (4 mg/3 mL) PnIj 2022-0 3-20 00:00: 00 Yes [id number] 1mg inject 1 mg under the skin weekly. [facility] semaglutide (OZEMPIC) 1 mg/dose (4 mg/3 mL) PnIj 2022-0 3-20 00:00: 00 Yes [id number] 1mg inject 1 mg under the skin weekly. [facility] semaglutide (OZEMPIC) 1 mg/dose (4 mg/3 mL) PnIj 2022-0 3-20 00:00: 00 Yes [id number] 1mg inject 1 mg under the skin weekly. [facility] semaglutide (OZEMPIC) 1 mg/dose (4 mg/3 mL) PnIj 2022-0 3-20 00:00: 00 Yes [id number] 1mg inject 1 mg under the skin weekly. [facility] semaglutide (OZEMPIC) 1 mg/dose (4 mg/3 mL) PnIj 2022-0 3-20 00:00: 00 01-19 00:00 :00 No [id number] 1mg inject 1 mg under the skin weekly. [facility] semaglutide (OZEMPIC) 1 mg/dose (4 mg/3 mL) PnIj 2022-0 3-20 00:00: 00 01-19 00:00 :00 No [id number] 1mg inject 1 mg under the skin weekly. [facility] semaglutide (OZEMPIC) 1 mg/dose (4 mg/3 mL) PnIj 2022-0 3-20 00:00: 00 01-19 00:00 :00 No [id number] 1mg inject 1 mg under the skin weekly. [facility] semaglutide (OZEMPIC) 1 mg/dose (4 mg/3 mL) PnIj 2022-0 3-20 00:00: 00 01-19 00:00 :00 No [id number] 1mg inject 1 mg under the skin weekly. [facility] semaglutide (OZEMPIC) 1 mg/dose (4 mg/3 mL) Ij 2022-0 3-20 00:00: 00 01-19 00:00 :00 No [id number] 1mg inject 1 mg under the skin weekly. [facility] semaglutide (OZEMPIC) 1 mg/dose (4 mg/3 mL) PnIj 3-20 00:00: 00 01-19 00:00 :00 No [id number] 1mg inject 1 mg under the skin weekly. [facility] semaglutide (OZEMPIC) 1 mg/dose (4 mg/3 mL) Ij 0 3-20 00:00: 00 01-19 00:00 :00 No [id number] 1mg inject 1 mg under the skin weekly. [facility] semaglutide (OZEMPIC) 1 mg/dose (4 mg/3 mL) Ij 3-20 00:00: 00 01-19 00:00 :00 No [id number] 1mg inject 1 mg under the skin weekly. [facility] albuterol 90 mcg/actuati on inhaler 0 16 00:00: 00 Yes [id number] 2{puff} Inhale 2 Puffs every 6 (six) hours as needed for Wheezing or Shortness of Breath. [facility] glyBURIDE 5 mg tablet 2022-0 16 00:00: 00 Yes [id number] TAKE 1 TABLET BY MOUTH TWICE DAILY (NEEDS FOLLOW UP VISIT FOR FURTHER REFILLS [facility] albuterol 90 mcg/actuati on inhaler 0 16 00:00: 00 Yes [id number] 2{puff} Inhale 2 Puffs every 6 (six) hours as needed for Wheezing or Shortness of Breath. [facility] glyBURIDE 5 mg tablet 2022-0 -16 00:00: 00 Yes [id number] TAKE 1 TABLET BY MOUTH TWICE DAILY (NEEDS FOLLOW UP VISIT FOR FURTHER REFILLS [facility] albuterol 90 mcg/actuati on inhaler 2022-0 3-16 00:00: 00 Yes [id number] 2{puff} Inhale 2 Puffs every 6 (six) hours as needed for Wheezing or Shortness of Breath. [facility] albuterol 90 mcg/actuati on inhaler 316 00:00: 00 Yes [id number] 2{puff} Inhale 2 Puffs every 6 (six) hours as needed for Wheezing or Shortness of Breath. [facility] glyBURIDE 5 mg tablet 16 00:00: 00 Yes [id number] TAKE 1 TABLET BY MOUTH TWICE DAILY (NEEDS FOLLOW UP VISIT FOR FURTHER REFILLS [facility] albuterol 90 mcg/actuati on inhaler 10-26 00:00: 00 Yes [id number] 2{puff} Inhale 2 Puffs every 6 (six) hours as needed for Wheezing or Shortness of Breath. [facility] albuterol 90 mcg/actuati on inhaler 10-26 00:00: 00 Yes [id number] 2{puff} Inhale 2 Puffs every 6 (six) hours as needed for Wheezing or Shortness of Breath. [facility] glyBURIDE 5 mg tablet 16 00:00: 00 Yes [id number] TAKE 1 TABLET BY MOUTH TWICE DAILY (NEEDS FOLLOW UP VISIT FOR FURTHER REFILLS [facility] albuterol 90 mcg/actuati on inhaler 16 00:00: 00 Yes [id number] 2{puff} Inhale 2 Puffs every 6 (six) hours as needed for Wheezing or Shortness of Breath. [facility] glyBURIDE 5 mg tablet 0 16 00:00: 00 Yes [id number] TAKE 1 TABLET BY MOUTH TWICE DAILY (NEEDS FOLLOW UP VISIT FOR FURTHER REFILLS [facility] albuterol 90 mcg/actuati on inhaler 0 16 00:00: 00 Yes [id number] 2{puff} Inhale 2 Puffs every 6 (six) hours as needed for Wheezing or Shortness of Breath. [facility] glyBURIDE 5 mg tablet 2022-0 -16 00:00: 00 Yes [id number] TAKE 1 TABLET BY MOUTH TWICE DAILY (NEEDS FOLLOW UP VISIT FOR FURTHER REFILLS [facility] albuterol 90 mcg/actuati on inhaler 2022-0 3-16 00:00: 00 Yes [id number] 2{puff} Inhale 2 Puffs every 6 (six) hours as needed for Wheezing or Shortness of Breath. [facility] glyBURIDE 5 mg tablet 2022-0 3-16 00:00: 00 Yes [id number] TAKE 1 TABLET BY MOUTH TWICE DAILY (NEEDS FOLLOW UP VISIT FOR FURTHER REFILLS [facility] albuterol 90 mcg/actuati on inhaler 2022-0 3-16 00:00: 00 Yes [id number] 2{puff} Inhale 2 Puffs every 6 (six) hours as needed for Wheezing or Shortness of Breath. [facility] glyBURIDE 5 mg tablet 2022-0 16 00:00: 00 Yes [id number] TAKE 1 TABLET BY MOUTH TWICE DAILY (NEEDS FOLLOW UP VISIT FOR FURTHER REFILLS [facility] albuterol 90 mcg/actuati on inhaler 0 316 00:00: 00 Yes [id number] 2{puff} Inhale 2 Puffs every 6 (six) hours as needed for Wheezing or Shortness of Breath. [facility] glyBURIDE 5 mg tablet 2022-0 316 00:00: 00 Yes [id number] TAKE 1 TABLET BY MOUTH TWICE DAILY (NEEDS FOLLOW UP VISIT FOR FURTHER REFILLS [facility] albuterol 90 mcg/actuati on inhaler 2022-0 3-16 00:00: 00 Yes [id number] 2{puff} Inhale 2 Puffs every 6 (six) hours as needed for Wheezing or Shortness of Breath. [facility] glyBURIDE 5 mg tablet 2022-0 3-16 00:00: 00 Yes [id number] TAKE 1 TABLET BY MOUTH TWICE DAILY (NEEDS FOLLOW UP VISIT FOR FURTHER REFILLS [facility] albuterol 90 mcg/actuati on inhaler 2022-0 3-16 00:00: 00 Yes [id number] 2{puff} Inhale 2 Puffs every 6 (six) hours as needed for Wheezing or Shortness of Breath. [facility] glyBURIDE 5 mg tablet 2022-0 316 00:00: 00 Yes [id number] TAKE 1 TABLET BY MOUTH TWICE DAILY (NEEDS FOLLOW UP VISIT FOR FURTHER REFILLS [facility] albuterol 90 mcg/actuati on inhaler 2022-0 3-16 00:00: 00 Yes [id number] 2{puff} Inhale 2 Puffs every 6 (six) hours as needed for Wheezing or Shortness of Breath. [facility] glyBURIDE 5 mg tablet 2022-0 3-16 00:00: 00 Yes [id number] TAKE 1 TABLET BY MOUTH TWICE DAILY (NEEDS FOLLOW UP VISIT FOR FURTHER REFILLS [facility] albuterol 90 mcg/actuati on inhaler 2022-0 16 00:00: 00 Yes [id number] 2{puff} Inhale 2 Puffs every 6 (six) hours as needed for Wheezing or Shortness of Breath. [facility] glyBURIDE 5 mg tablet 2022-0 16 00:00: 00 Yes [id number] TAKE 1 TABLET BY MOUTH TWICE DAILY (NEEDS FOLLOW UP VISIT FOR FURTHER REFILLS [facility] albuterol 90 mcg/actuati on inhaler 0 316 00:00: 00 Yes [id number] 2{puff} Inhale 2 Puffs every 6 (six) hours as needed for Wheezing or Shortness of Breath. [facility] glyBURIDE 5 mg tablet 2022-0 316 00:00: 00 Yes [id number] TAKE 1 TABLET BY MOUTH TWICE DAILY (NEEDS FOLLOW UP VISIT FOR FURTHER REFILLS [facility] albuterol 90 mcg/actuati on inhaler 2022-0 3-16 00:00: 00 Yes [id number] 2{puff} Inhale 2 Puffs every 6 (six) hours as needed for Wheezing or Shortness of Breath. [facility] glyBURIDE 5 mg tablet 2022-0 3-16 00:00: 00 Yes [id number] TAKE 1 TABLET BY MOUTH TWICE DAILY (NEEDS FOLLOW UP VISIT FOR FURTHER REFILLS [facility] albuterol 90 mcg/actuati on inhaler 2022-0 3-16 00:00: 00 Yes [id number] 2{puff} Inhale 2 Puffs every 6 (six) hours as needed for Wheezing or Shortness of Breath. [facility] glyBURIDE 5 mg tablet 2022-0 3-16 00:00: 00 Yes [id number] TAKE 1 TABLET BY MOUTH TWICE DAILY (NEEDS FOLLOW UP VISIT FOR FURTHER REFILLS [facility] albuterol 90 mcg/actuati on inhaler 2022-0 3-16 00:00: 00 Yes [id number] 2{puff} Inhale 2 Puffs every 6 (six) hours as needed for Wheezing or Shortness of Breath. [facility] glyBURIDE 5 mg tablet 2022-0 16 00:00: 00 Yes [id number] TAKE 1 TABLET BY MOUTH TWICE DAILY (NEEDS FOLLOW UP VISIT FOR FURTHER REFILLS [facility] albuterol 90 mcg/actuati on inhaler 0 16 00:00: 00 Yes [id number] 2{puff} Inhale 2 Puffs every 6 (six) hours as needed for Wheezing or Shortness of Breath. [facility] glyBURIDE 5 mg tablet 2022-0 16 00:00: 00 Yes [id number] TAKE 1 TABLET BY MOUTH TWICE DAILY (NEEDS FOLLOW UP VISIT FOR FURTHER REFILLS [facility] albuterol 90 mcg/actuati on inhaler 2022-0 3-16 00:00: 00 Yes [id number] 2{puff} Inhale 2 Puffs every 6 (six) hours as needed for Wheezing or Shortness of Breath. [facility] glyBURIDE 5 mg tablet 2022-0 3-16 00:00: 00 Yes [id number] TAKE 1 TABLET BY MOUTH TWICE DAILY (NEEDS FOLLOW UP VISIT FOR FURTHER REFILLS [facility] albuterol 90 mcg/actuati on inhaler 2022-0 3-16 00:00: 00 Yes [id number] 2{puff} Inhale 2 Puffs every 6 (six) hours as needed for Wheezing or Shortness of Breath. [facility] glyBURIDE 5 mg tablet 2022-0 3-16 00:00: 00 Yes [id number] TAKE 1 TABLET BY MOUTH TWICE DAILY (NEEDS FOLLOW UP VISIT FOR FURTHER REFILLS [facility] albuterol 90 mcg/actuati on inhaler 0 3-16 00:00: 00 Yes [id number] 2{puff} Inhale 2 Puffs every 6 (six) hours as needed for Wheezing or Shortness of Breath. [facility] glyBURIDE 5 mg tablet 0 3-16 00:00: 00 Yes [id number] TAKE 1 TABLET BY MOUTH TWICE DAILY (NEEDS FOLLOW UP VISIT FOR FURTHER REFILLS [facility] albuterol 90 mcg/actuati on inhaler 0 316 00:00: 00 Yes [id number] 2{puff} Inhale 2 Puffs every 6 (six) hours as needed for Wheezing or Shortness of Breath. [facility] glyBURIDE 5 mg tablet 0 16 00:00: 00 Yes [id number] TAKE 1 TABLET BY MOUTH TWICE DAILY (NEEDS FOLLOW UP VISIT FOR FURTHER REFILLS [facility] albuterol 90 mcg/actuati on inhaler 0 16 00:00: 00 Yes [id number] 2{puff} Inhale 2 Puffs every 6 (six) hours as needed for Wheezing or Shortness of Breath. [facility] glyBURIDE 5 mg tablet 0 16 00:00: 00 Yes [id number] TAKE 1 TABLET BY MOUTH TWICE DAILY (NEEDS FOLLOW UP VISIT FOR FURTHER REFILLS [facility] albuterol 90 mcg/actuati on inhaler 0 3-16 00:00: 00 Yes [id number] 2{puff} Inhale 2 Puffs every 6 (six) hours as needed for Wheezing or Shortness of Breath. [facility] glyBURIDE 5 mg tablet 2022-0 3-16 00:00: 00 Yes [id number] TAKE 1 TABLET BY MOUTH TWICE DAILY (NEEDS FOLLOW UP VISIT FOR FURTHER REFILLS [facility] albuterol 90 mcg/actuati on inhaler 2022-0 3-16 00:00: 00 Yes [id number] 2{puff} Inhale 2 Puffs every 6 (six) hours as needed for Wheezing or Shortness of Breath. [facility] glyBURIDE 5 mg tablet 2022-0 3-16 00:00: 00 Yes [id number] TAKE 1 TABLET BY MOUTH TWICE DAILY (NEEDS FOLLOW UP VISIT FOR FURTHER REFILLS [facility] albuterol 90 mcg/actuati on inhaler 2022-0 3-16 00:00: 00 Yes [id number] 2{puff} Inhale 2 Puffs every 6 (six) hours as needed for Wheezing or Shortness of Breath. [facility] glyBURIDE 5 mg tablet 2022-0 3-16 00:00: 00 Yes [id number] TAKE 1 TABLET BY MOUTH TWICE DAILY (NEEDS FOLLOW UP VISIT FOR FURTHER REFILLS [facility] albuterol 90 mcg/actuati on inhaler 0 3-16 00:00: 00 Yes [id number] 2{puff} Inhale 2 Puffs every 6 (six) hours as needed for Wheezing or Shortness of Breath. [facility] glyBURIDE 5 mg tablet 2022-0 3-16 00:00: 00 Yes [id number] TAKE 1 TABLET BY MOUTH TWICE DAILY (NEEDS FOLLOW UP VISIT FOR FURTHER REFILLS [facility] albuterol 90 mcg/actuati on inhaler 0 3-16 00:00: 00 Yes [id number] 2{puff} Inhale 2 Puffs every 6 (six) hours as needed for Wheezing or Shortness of Breath. [facility] glyBURIDE 5 mg tablet 2022-0 3-16 00:00: 00 Yes [id number] TAKE 1 TABLET BY MOUTH TWICE DAILY (NEEDS FOLLOW UP VISIT FOR FURTHER REFILLS [facility] albuterol 90 mcg/actuati on inhaler 0 3-16 00:00: 00 Yes [id number] 2{puff} Inhale 2 Puffs every 6 (six) hours as needed for Wheezing or Shortness of Breath. [facility] glyBURIDE 5 mg tablet 2022-0 3-16 00:00: 00 Yes [id number] TAKE 1 TABLET BY MOUTH TWICE DAILY (NEEDS FOLLOW UP VISIT FOR FURTHER REFILLS [facility] albuterol 90 mcg/actuati on inhaler 2022-0 316 00:00: 00 Yes [id number] 2{puff} Inhale 2 Puffs every 6 (six) hours as needed for Wheezing or Shortness of Breath. [facility] glyBURIDE 5 mg tablet 2022-0 316 00:00: 00 Yes [id number] TAKE 1 TABLET BY MOUTH TWICE DAILY (NEEDS FOLLOW UP VISIT FOR FURTHER REFILLS [facility] albuterol 90 mcg/actuati on inhaler 2022-0 316 00:00: 00 Yes [id number] 2{puff} Inhale 2 Puffs every 6 (six) hours as needed for Wheezing or Shortness of Breath. [facility] glyBURIDE 5 mg tablet 2022-0 16 00:00: 00 Yes [id number] TAKE 1 TABLET BY MOUTH TWICE DAILY (NEEDS FOLLOW UP VISIT FOR FURTHER REFILLS [facility] albuterol 90 mcg/actuati on inhaler 0 316 00:00: 00 Yes [id number] 2{puff} Inhale 2 Puffs every 6 (six) hours as needed for Wheezing or Shortness of Breath. [facility] glyBURIDE 5 mg tablet 2022-0 316 00:00: 00 Yes [id number] TAKE 1 TABLET BY MOUTH TWICE DAILY (NEEDS FOLLOW UP VISIT FOR FURTHER REFILLS [facility] albuterol 90 mcg/actuati on inhaler 2022-0 316 00:00: 00 Yes [id number] 2{puff} Inhale 2 Puffs every 6 (six) hours as needed for Wheezing or Shortness of Breath. [facility] glyBURIDE 5 mg tablet 2022-0 316 00:00: 00 Yes [id number] TAKE 1 TABLET BY MOUTH TWICE DAILY (NEEDS FOLLOW UP VISIT FOR FURTHER REFILLS [facility] albuterol 90 mcg/actuati on inhaler 2022-0 3-16 00:00: 00 Yes [id number] 2{puff} Inhale 2 Puffs every 6 (six) hours as needed for Wheezing or Shortness of Breath. [facility] glyBURIDE 5 mg tablet 2023-0 3-16 00:00: 00 Yes [id number] TAKE 1 TABLET BY MOUTH TWICE DAILY (NEEDS FOLLOW UP VISIT FOR FURTHER REFILLS [facility] albuterol 90 mcg/actuati on inhaler 0 3-16 00:00: 00 Yes [id number] 2{puff} Inhale 2 Puffs every 6 (six) hours as needed for Wheezing or Shortness of Breath. [facility] glyBURIDE 5 mg tablet 0 3-16 00:00: 00 Yes [id number] TAKE 1 TABLET BY MOUTH TWICE DAILY (NEEDS FOLLOW UP VISIT FOR FURTHER REFILLS [facility] albuterol 90 mcg/actuati on inhaler 0 16 00:00: 00 Yes [id number] 2{puff} Inhale 2 Puffs every 6 (six) hours as needed for Wheezing or Shortness of Breath. [facility] glyBURIDE 5 mg tablet 0 16 00:00: 00 Yes [id number] TAKE 1 TABLET BY MOUTH TWICE DAILY (NEEDS FOLLOW UP VISIT FOR FURTHER REFILLS [facility] albuterol 90 mcg/actuati on inhaler 0 16 00:00: 00 Yes [id number] 2{puff} Inhale 2 Puffs every 6 (six) hours as needed for Wheezing or Shortness of Breath. [facility] glyBURIDE 5 mg tablet 0 16 00:00: 00 Yes [id number] TAKE 1 TABLET BY MOUTH TWICE DAILY (NEEDS FOLLOW UP VISIT FOR FURTHER REFILLS [facility] albuterol 90 mcg/actuati on inhaler 0 3-16 00:00: 00 Yes [id number] 2{puff} Inhale 2 Puffs every 6 (six) hours as needed for Wheezing or Shortness of Breath. [facility] glyBURIDE 5 mg tablet 0 16 00:00: 00 Yes [id number] TAKE 1 TABLET BY MOUTH TWICE DAILY (NEEDS FOLLOW UP VISIT FOR FURTHER REFILLS [facility] albuterol 90 mcg/actuati on inhaler 0 3-16 00:00: 00 Yes [id number] 2{puff} Inhale 2 Puffs every 6 (six) hours as needed for Wheezing or Shortness of Breath. [facility] glyBURIDE 5 mg tablet 2022-0 3-16 00:00: 00 Yes [id number] TAKE 1 TABLET BY MOUTH TWICE DAILY (NEEDS FOLLOW UP VISIT FOR FURTHER REFILLS [facility] albuterol 90 mcg/actuati on inhaler 2022-0 3-16 00:00: 00 Yes [id number] 2{puff} Inhale 2 Puffs every 6 (six) hours as needed for Wheezing or Shortness of Breath. [facility] glyBURIDE 5 mg tablet 2022-0 3-16 00:00: 00 Yes [id number] TAKE 1 TABLET BY MOUTH TWICE DAILY (NEEDS FOLLOW UP VISIT FOR FURTHER REFILLS [facility] albuterol 90 mcg/actuati on inhaler 0 3-16 00:00: 00 Yes [id number] 2{puff} Inhale 2 Puffs every 6 (six) hours as needed for Wheezing or Shortness of Breath. [facility] glyBURIDE 5 mg tablet 2022-0 3-16 00:00: 00 Yes [id number] TAKE 1 TABLET BY MOUTH TWICE DAILY (NEEDS FOLLOW UP VISIT FOR FURTHER REFILLS [facility] albuterol 90 mcg/actuati on inhaler 0 3-16 00:00: 00 Yes [id number] 2{puff} Inhale 2 Puffs every 6 (six) hours as needed for Wheezing or Shortness of Breath. [facility] glyBURIDE 5 mg tablet 2022-0 3-16 00:00: 00 Yes [id number] TAKE 1 TABLET BY MOUTH TWICE DAILY (NEEDS FOLLOW UP VISIT FOR FURTHER REFILLS [facility] albuterol 90 mcg/actuati on inhaler 2022-0 3-16 00:00: 00 Yes [id number] 2{puff} Inhale 2 Puffs every 6 (six) hours as needed for Wheezing or Shortness of Breath. [facility] glyBURIDE 5 mg tablet 2022-0 3-16 00:00: 00 Yes [id number] TAKE 1 TABLET BY MOUTH TWICE DAILY (NEEDS FOLLOW UP VISIT FOR FURTHER REFILLS [facility] albuterol 90 mcg/actuati on inhaler 2022-0 3-16 00:00: 00 Yes [id number] 2{puff} Inhale 2 Puffs every 6 (six) hours as needed for Wheezing or Shortness of Breath. [facility] glyBURIDE 5 mg tablet 2022-0 3-16 00:00: 00 Yes [id number] TAKE 1 TABLET BY MOUTH TWICE DAILY (NEEDS FOLLOW UP VISIT FOR FURTHER REFILLS [facility] albuterol 90 mcg/actuati on inhaler 2022-0 16 00:00: 00 Yes [id number] 2{puff} Inhale 2 Puffs every 6 (six) hours as needed for Wheezing or Shortness of Breath. [facility] glyBURIDE 5 mg tablet 2022-0 16 00:00: 00 Yes [id number] TAKE 1 TABLET BY MOUTH TWICE DAILY (NEEDS FOLLOW UP VISIT FOR FURTHER REFILLS [facility] albuterol 90 mcg/actuati on inhaler 0 316 00:00: 00 Yes [id number] 2{puff} Inhale 2 Puffs every 6 (six) hours as needed for Wheezing or Shortness of Breath. [facility] glyBURIDE 5 mg tablet 2022-0 16 00:00: 00 Yes [id number] TAKE 1 TABLET BY MOUTH TWICE DAILY (NEEDS FOLLOW UP VISIT FOR FURTHER REFILLS [facility] albuterol 90 mcg/actuati on inhaler 2022-0 3-16 00:00: 00 Yes [id number] 2{puff} Inhale 2 Puffs every 6 (six) hours as needed for Wheezing or Shortness of Breath. [facility] glyBURIDE 5 mg tablet 2022-0 3-16 00:00: 00 Yes [id number] TAKE 1 TABLET BY MOUTH TWICE DAILY (NEEDS FOLLOW UP VISIT FOR FURTHER REFILLS [facility] albuterol 90 mcg/actuati on inhaler 2022-0 3-16 00:00: 00 Yes [id number] 2{puff} Inhale 2 Puffs every 6 (six) hours as needed for Wheezing or Shortness of Breath. [facility] glyBURIDE 5 mg tablet 2022-0 3-16 00:00: 00 Yes [id number] TAKE 1 TABLET BY MOUTH TWICE DAILY (NEEDS FOLLOW UP VISIT FOR FURTHER REFILLS [facility] albuterol 90 mcg/actuati on inhaler 2022-0 3-16 00:00: 00 Yes [id number] 2{puff} Inhale 2 Puffs every 6 (six) hours as needed for Wheezing or Shortness of Breath. [facility] glyBURIDE 5 mg tablet 2022-0 3-16 00:00: 00 Yes [id number] TAKE 1 TABLET BY MOUTH TWICE DAILY (NEEDS FOLLOW UP VISIT FOR FURTHER REFILLS [facility] albuterol 90 mcg/actuati on inhaler 2022-0 316 00:00: 00 Yes [id number] 2{puff} Inhale 2 Puffs every 6 (six) hours as needed for Wheezing or Shortness of Breath. [facility] glyBURIDE 5 mg tablet 2022-0 3-16 00:00: 00 Yes [id number] TAKE 1 TABLET BY MOUTH TWICE DAILY (NEEDS FOLLOW UP VISIT FOR FURTHER REFILLS [facility] albuterol 90 mcg/actuati on inhaler 0 3-16 00:00: 00 Yes [id number] 2{puff} Inhale 2 Puffs every 6 (six) hours as needed for Wheezing or Shortness of Breath. [facility] glyBURIDE 5 mg tablet 2022-0 3-16 00:00: 00 Yes [id number] TAKE 1 TABLET BY MOUTH TWICE DAILY (NEEDS FOLLOW UP VISIT FOR FURTHER REFILLS [facility] albuterol 90 mcg/actuati on inhaler 0 3-16 00:00: 00 Yes [id number] 2{puff} Inhale 2 Puffs every 6 (six) hours as needed for Wheezing or Shortness of Breath. [facility] glyBURIDE 5 mg tablet 2022-0 3-16 00:00: 00 Yes [id number] TAKE 1 TABLET BY MOUTH TWICE DAILY (NEEDS FOLLOW UP VISIT FOR FURTHER REFILLS [facility] albuterol 90 mcg/actuati on inhaler 2022-0 3-16 00:00: 00 Yes [id number] 2{puff} Inhale 2 Puffs every 6 (six) hours as needed for Wheezing or Shortness of Breath. [facility] albuterol 90 mcg/actuati on inhaler 10-26 00:00: 00 Yes [id number] 2{puff} Inhale 2 Puffs every 6 (six) hours as needed for Wheezing or Shortness of Breath. [facility] albuterol 90 mcg/actuati on inhaler 10-26 00:00: 00 Yes [id number] 2{puff} Inhale 2 Puffs every 6 (six) hours as needed for Wheezing or Shortness of Breath. [facility] albuterol 90 mcg/actuati on inhaler 10-26 00:00: 00 Yes [id number] 2{puff} Inhale 2 Puffs every 6 (six) hours as needed for Wheezing or Shortness of Breath. [facility] albuterol 90 mcg/actuati on inhaler 10-26 00:00: 00 Yes [id number] 2{puff} Inhale 2 Puffs every 6 (six) hours as needed for Wheezing or Shortness of Breath. [facility] albuterol 90 mcg/actuati on inhaler 10-26 00:00: 00 Yes [id number] 2{puff} Inhale 2 Puffs every 6 (six) hours as needed for Wheezing or Shortness of Breath. [facility] albuterol 90 mcg/actuati on inhaler 10-26 00:00: 00 Yes [id number] 2{puff} Inhale 2 Puffs every 6 (six) hours as needed for Wheezing or Shortness of Breath. [facility] albuterol 90 mcg/actuati on inhaler 3 00:00: 00 Yes [id number] 2{puff} Inhale 2 Puffs every 6 (six) hours as needed for Wheezing or Shortness of Breath. [facility] albuterol 90 mcg/actuati on inhaler 16 00:00: 00 Yes [id number] 2{puff} Inhale 2 Puffs every 6 (six) hours as needed for Wheezing or Shortness of Breath. [facility] albuterol 90 mcg/actuati on inhaler 316 00:00: 00 Yes [id number] 2{puff} Inhale 2 Puffs every 6 (six) hours as needed for Wheezing or Shortness of Breath. [facility] albuterol 90 mcg/actuati on inhaler 316 00:00: 00 Yes [id number] 2{puff} Inhale 2 Puffs every 6 (six) hours as needed for Wheezing or Shortness of Breath. [facility] albuterol 90 mcg/actuati on inhaler 3 00:00: 00 Yes [id number] 2{puff} Inhale 2 Puffs every 6 (six) hours as needed for Wheezing or Shortness of Breath. [facility] albuterol 90 mcg/actuati on inhaler 3 00:00: 00 Yes [id number] 2{puff} Inhale 2 Puffs every 6 (six) hours as needed for Wheezing or Shortness of Breath. [facility] albuterol 90 mcg/actuati on inhaler 10-26 00:00: 00 Yes [id number] 2{puff} Inhale 2 Puffs every 6 (six) hours as needed for Wheezing or Shortness of Breath. [facility] albuterol 90 mcg/actuati on inhaler 316 00:00: 00 Yes [id number] 2{puff} Inhale 2 Puffs every 6 (six) hours as needed for Wheezing or Shortness of Breath. [facility] albuterol 90 mcg/actuati on inhaler 316 00:00: 00 Yes [id number] 2{puff} Inhale 2 Puffs every 6 (six) hours as needed for Wheezing or Shortness of Breath. [facility] albuterol 90 mcg/actuati on inhaler 316 00:00: 00 Yes [id number] 2{puff} Inhale 2 Puffs every 6 (six) hours as needed for Wheezing or Shortness of Breath. [facility] albuterol 90 mcg/actuati on inhaler 316 00:00: 00 Yes [id number] 2{puff} Inhale 2 Puffs every 6 (six) hours as needed for Wheezing or Shortness of Breath. [facility] albuterol 90 mcg/actuati on inhaler 316 00:00: 00 Yes [id number] 2{puff} Inhale 2 Puffs every 6 (six) hours as needed for Wheezing or Shortness of Breath. [facility] albuterol 90 mcg/actuati on inhaler 3 00:00: 00 Yes [id number] 2{puff} Inhale 2 Puffs every 6 (six) hours as needed for Wheezing or Shortness of Breath. [facility] albuterol 90 mcg/actuati on inhaler 10-26 00:00: 00 Yes [id number] 2{puff} Inhale 2 Puffs every 6 (six) hours as needed for Wheezing or Shortness of Breath. [facility] albuterol 90 mcg/actuati on inhaler 10-26 00:00: 00 Yes [id number] 2{puff} Inhale 2 Puffs every 6 (six) hours as needed for Wheezing or Shortness of Breath. [facility] albuterol 90 mcg/actuati on inhaler 316 00:00: 00 Yes [id number] 2{puff} Inhale 2 Puffs every 6 (six) hours as needed for Wheezing or Shortness of Breath. [facility] albuterol 90 mcg/actuati on inhaler 316 00:00: 00 Yes [id number] 2{puff} Inhale 2 Puffs every 6 (six) hours as needed for Wheezing or Shortness of Breath. [facility] albuterol 90 mcg/actuati on inhaler 3-16 00:00: 00 Yes [id number] 2{puff} Inhale 2 Puffs every 6 (six) hours as needed for Wheezing or Shortness of Breath. [facility] albuterol 90 mcg/actuati on inhaler 3-16 00:00: 00 Yes [id number] 2{puff} Inhale 2 Puffs every 6 (six) hours as needed for Wheezing or Shortness of Breath. [facility] albuterol 90 mcg/actuati on inhaler 10-26 00:00: 00 Yes [id number] 2{puff} Inhale 2 Puffs every 6 (six) hours as needed for Wheezing or Shortness of Breath. [facility] albuterol 90 mcg/actuati on inhaler 10-26 00:00: 00 Yes [id number] 2{puff} Inhale 2 Puffs every 6 (six) hours as needed for Wheezing or Shortness of Breath. [facility] albuterol 90 mcg/actuati on inhaler 10-26 00:00: 00 Yes [id number] 2{puff} Inhale 2 Puffs every 6 (six) hours as needed for Wheezing or Shortness of Breath. [facility] albuterol 90 mcg/actuati on inhaler 10-26 00:00: 00 Yes [id number] 2{puff} Inhale 2 Puffs every 6 (six) hours as needed for Wheezing or Shortness of Breath. [facility] albuterol 90 mcg/actuati on inhaler 10-26 00:00: 00 Yes [id number] 2{puff} Inhale 2 Puffs every 6 (six) hours as needed for Wheezing or Shortness of Breath. [facility] albuterol 90 mcg/actuati on inhaler 10-26 00:00: 00 Yes [id number] 2{puff} Inhale 2 Puffs every 6 (six) hours as needed for Wheezing or Shortness of Breath. [facility] albuterol 90 mcg/actuati on inhaler 3 00:00: 00 Yes [id number] 2{puff} Inhale 2 Puffs every 6 (six) hours as needed for Wheezing or Shortness of Breath. [facility] albuterol 90 mcg/actuati on inhaler 16 00:00: 00 Yes [id number] 2{puff} Inhale 2 Puffs every 6 (six) hours as needed for Wheezing or Shortness of Breath. [facility] albuterol 90 mcg/actuati on inhaler 316 00:00: 00 Yes [id number] 2{puff} Inhale 2 Puffs every 6 (six) hours as needed for Wheezing or Shortness of Breath. [facility] albuterol 90 mcg/actuati on inhaler 316 00:00: 00 Yes [id number] 2{puff} Inhale 2 Puffs every 6 (six) hours as needed for Wheezing or Shortness of Breath. [facility] albuterol 90 mcg/actuati on inhaler 3 00:00: 00 Yes [id number] 2{puff} Inhale 2 Puffs every 6 (six) hours as needed for Wheezing or Shortness of Breath. [facility] albuterol 90 mcg/actuati on inhaler 3 00:00: 00 Yes [id number] 2{puff} Inhale 2 Puffs every 6 (six) hours as needed for Wheezing or Shortness of Breath. [facility] albuterol 90 mcg/actuati on inhaler 10-26 00:00: 00 Yes [id number] 2{puff} Inhale 2 Puffs every 6 (six) hours as needed for Wheezing or Shortness of Breath. [facility] albuterol 90 mcg/actuati on inhaler 316 00:00: 00 Yes [id number] 2{puff} Inhale 2 Puffs every 6 (six) hours as needed for Wheezing or Shortness of Breath. [facility] albuterol 90 mcg/actuati on inhaler 316 00:00: 00 Yes [id number] 2{puff} Inhale 2 Puffs every 6 (six) hours as needed for Wheezing or Shortness of Breath. [facility] albuterol 90 mcg/actuati on inhaler 316 00:00: 00 Yes [id number] 2{puff} Inhale 2 Puffs every 6 (six) hours as needed for Wheezing or Shortness of Breath. [facility] albuterol 90 mcg/actuati on inhaler 316 00:00: 00 Yes [id number] 2{puff} Inhale 2 Puffs every 6 (six) hours as needed for Wheezing or Shortness of Breath. [facility] albuterol 90 mcg/actuati on inhaler 316 00:00: 00 Yes [id number] 2{puff} Inhale 2 Puffs every 6 (six) hours as needed for Wheezing or Shortness of Breath. [facility] albuterol 90 mcg/actuati on inhaler 3 00:00: 00 Yes [id number] 2{puff} Inhale 2 Puffs every 6 (six) hours as needed for Wheezing or Shortness of Breath. [facility] albuterol 90 mcg/actuati on inhaler 10-26 00:00: 00 Yes [id number] 2{puff} Inhale 2 Puffs every 6 (six) hours as needed for Wheezing or Shortness of Breath. [facility] albuterol 90 mcg/actuati on inhaler 10-26 00:00: 00 Yes [id number] 2{puff} Inhale 2 Puffs every 6 (six) hours as needed for Wheezing or Shortness of Breath. [facility] albuterol 90 mcg/actuati on inhaler 316 00:00: 00 Yes [id number] 2{puff} Inhale 2 Puffs every 6 (six) hours as needed for Wheezing or Shortness of Breath. [facility] albuterol 90 mcg/actuati on inhaler 316 00:00: 00 Yes [id number] 2{puff} Inhale 2 Puffs every 6 (six) hours as needed for Wheezing or Shortness of Breath. [facility] albuterol 90 mcg/actuati on inhaler 3-16 00:00: 00 Yes [id number] 2{puff} Inhale 2 Puffs every 6 (six) hours as needed for Wheezing or Shortness of Breath. [facility] albuterol 90 mcg/actuati on inhaler 3-16 00:00: 00 Yes [id number] 2{puff} Inhale 2 Puffs every 6 (six) hours as needed for Wheezing or Shortness of Breath. [facility] albuterol 90 mcg/actuati on inhaler 10-26 00:00: 00 Yes [id number] 2{puff} Inhale 2 Puffs every 6 (six) hours as needed for Wheezing or Shortness of Breath. [facility] albuterol 90 mcg/actuati on inhaler 10-26 00:00: 00 Yes [id number] 2{puff} Inhale 2 Puffs every 6 (six) hours as needed for Wheezing or Shortness of Breath. [facility] albuterol 90 mcg/actuati on inhaler 10-26 00:00: 00 Yes [id number] 2{puff} Inhale 2 Puffs every 6 (six) hours as needed for Wheezing or Shortness of Breath. [facility] albuterol 90 mcg/actuati on inhaler 10-26 00:00: 00 Yes [id number] 2{puff} Inhale 2 Puffs every 6 (six) hours as needed for Wheezing or Shortness of Breath. [facility] albuterol 90 mcg/actuati on inhaler 10-26 00:00: 00 Yes [id number] 2{puff} Inhale 2 Puffs every 6 (six) hours as needed for Wheezing or Shortness of Breath. [facility] albuterol 90 mcg/actuati on inhaler 10-26 00:00: 00 Yes [id number] 2{puff} Inhale 2 Puffs every 6 (six) hours as needed for Wheezing or Shortness of Breath. [facility] albuterol 90 mcg/actuati on inhaler 3 00:00: 00 Yes [id number] 2{puff} Inhale 2 Puffs every 6 (six) hours as needed for Wheezing or Shortness of Breath. [facility] albuterol 90 mcg/actuati on inhaler 16 00:00: 00 Yes [id number] 2{puff} Inhale 2 Puffs every 6 (six) hours as needed for Wheezing or Shortness of Breath. [facility] albuterol 90 mcg/actuati on inhaler 316 00:00: 00 Yes [id number] 2{puff} Inhale 2 Puffs every 6 (six) hours as needed for Wheezing or Shortness of Breath. [facility] albuterol 90 mcg/actuati on inhaler 316 00:00: 00 Yes [id number] 2{puff} Inhale 2 Puffs every 6 (six) hours as needed for Wheezing or Shortness of Breath. [facility] albuterol 90 mcg/actuati on inhaler 3 00:00: 00 Yes [id number] 2{puff} Inhale 2 Puffs every 6 (six) hours as needed for Wheezing or Shortness of Breath. [facility] albuterol 90 mcg/actuati on inhaler 3 00:00: 00 Yes [id number] 2{puff} Inhale 2 Puffs every 6 (six) hours as needed for Wheezing or Shortness of Breath. [facility] albuterol 90 mcg/actuati on inhaler 10-26 00:00: 00 Yes [id number] 2{puff} Inhale 2 Puffs every 6 (six) hours as needed for Wheezing or Shortness of Breath. [facility] albuterol 90 mcg/actuati on inhaler 316 00:00: 00 Yes [id number] 2{puff} Inhale 2 Puffs every 6 (six) hours as needed for Wheezing or Shortness of Breath. [facility] albuterol 90 mcg/actuati on inhaler 316 00:00: 00 Yes [id number] 2{puff} Inhale 2 Puffs every 6 (six) hours as needed for Wheezing or Shortness of Breath. [facility] albuterol 90 mcg/actuati on inhaler 316 00:00: 00 Yes [id number] 2{puff} Inhale 2 Puffs every 6 (six) hours as needed for Wheezing or Shortness of Breath. [facility] albuterol 90 mcg/actuati on inhaler 316 00:00: 00 Yes [id number] 2{puff} Inhale 2 Puffs every 6 (six) hours as needed for Wheezing or Shortness of Breath. [facility] albuterol 90 mcg/actuati on inhaler 316 00:00: 00 Yes [id number] 2{puff} Inhale 2 Puffs every 6 (six) hours as needed for Wheezing or Shortness of Breath. [facility] albuterol 90 mcg/actuati on inhaler 3 00:00: 00 Yes [id number] 2{puff} Inhale 2 Puffs every 6 (six) hours as needed for Wheezing or Shortness of Breath. [facility] albuterol 90 mcg/actuati on inhaler 10-26 00:00: 00 Yes [id number] 2{puff} Inhale 2 Puffs every 6 (six) hours as needed for Wheezing or Shortness of Breath. [facility] albuterol 90 mcg/actuati on inhaler 10-26 00:00: 00 Yes [id number] 2{puff} Inhale 2 Puffs every 6 (six) hours as needed for Wheezing or Shortness of Breath. [facility] albuterol 90 mcg/actuati on inhaler 316 00:00: 00 Yes [id number] 2{puff} Inhale 2 Puffs every 6 (six) hours as needed for Wheezing or Shortness of Breath. [facility] albuterol 90 mcg/actuati on inhaler 316 00:00: 00 Yes [id number] 2{puff} Inhale 2 Puffs every 6 (six) hours as needed for Wheezing or Shortness of Breath. [facility] albuterol 90 mcg/actuati on inhaler 3-16 00:00: 00 Yes [id number] 2{puff} Inhale 2 Puffs every 6 (six) hours as needed for Wheezing or Shortness of Breath. [facility] albuterol 90 mcg/actuati on inhaler 3-16 00:00: 00 Yes [id number] 2{puff} Inhale 2 Puffs every 6 (six) hours as needed for Wheezing or Shortness of Breath. [facility] albuterol 90 mcg/actuati on inhaler 10-26 00:00: 00 Yes [id number] 2{puff} Inhale 2 Puffs every 6 (six) hours as needed for Wheezing or Shortness of Breath. [facility] albuterol 90 mcg/actuati on inhaler 10-26 00:00: 00 Yes [id number] 2{puff} Inhale 2 Puffs every 6 (six) hours as needed for Wheezing or Shortness of Breath. [facility] albuterol 90 mcg/actuati on inhaler 10-26 00:00: 00 Yes [id number] 2{puff} Inhale 2 Puffs every 6 (six) hours as needed for Wheezing or Shortness of Breath. [facility] albuterol 90 mcg/actuati on inhaler 10-26 00:00: 00 Yes [id number] 2{puff} Inhale 2 Puffs every 6 (six) hours as needed for Wheezing or Shortness of Breath. [facility] albuterol 90 mcg/actuati on inhaler 10-26 00:00: 00 Yes [id number] 2{puff} Inhale 2 Puffs every 6 (six) hours as needed for Wheezing or Shortness of Breath. [facility] albuterol 90 mcg/actuati on inhaler 10-26 00:00: 00 Yes [id number] 2{puff} Inhale 2 Puffs every 6 (six) hours as needed for Wheezing or Shortness of Breath. [facility] albuterol 90 mcg/actuati on inhaler 3 00:00: 00 Yes [id number] 2{puff} Inhale 2 Puffs every 6 (six) hours as needed for Wheezing or Shortness of Breath. [facility] albuterol 90 mcg/actuati on inhaler 16 00:00: 00 Yes [id number] 2{puff} Inhale 2 Puffs every 6 (six) hours as needed for Wheezing or Shortness of Breath. [facility] albuterol 90 mcg/actuati on inhaler 316 00:00: 00 Yes [id number] 2{puff} Inhale 2 Puffs every 6 (six) hours as needed for Wheezing or Shortness of Breath. [facility] albuterol 90 mcg/actuati on inhaler 316 00:00: 00 Yes [id number] 2{puff} Inhale 2 Puffs every 6 (six) hours as needed for Wheezing or Shortness of Breath. [facility] albuterol 90 mcg/actuati on inhaler 3 00:00: 00 Yes [id number] 2{puff} Inhale 2 Puffs every 6 (six) hours as needed for Wheezing or Shortness of Breath. [facility] albuterol 90 mcg/actuati on inhaler 3 00:00: 00 Yes [id number] 2{puff} Inhale 2 Puffs every 6 (six) hours as needed for Wheezing or Shortness of Breath. [facility] albuterol 90 mcg/actuati on inhaler 10-26 00:00: 00 Yes [id number] 2{puff} Inhale 2 Puffs every 6 (six) hours as needed for Wheezing or Shortness of Breath. [facility] albuterol 90 mcg/actuati on inhaler 316 00:00: 00 Yes [id number] 2{puff} Inhale 2 Puffs every 6 (six) hours as needed for Wheezing or Shortness of Breath. [facility] albuterol 90 mcg/actuati on inhaler 316 00:00: 00 Yes [id number] 2{puff} Inhale 2 Puffs every 6 (six) hours as needed for Wheezing or Shortness of Breath. [facility] albuterol 90 mcg/actuati on inhaler 316 00:00: 00 Yes [id number] 2{puff} Inhale 2 Puffs every 6 (six) hours as needed for Wheezing or Shortness of Breath. [facility] albuterol 90 mcg/actuati on inhaler 316 00:00: 00 Yes [id number] 2{puff} Inhale 2 Puffs every 6 (six) hours as needed for Wheezing or Shortness of Breath. [facility] albuterol 90 mcg/actuati on inhaler 316 00:00: 00 Yes [id number] 2{puff} Inhale 2 Puffs every 6 (six) hours as needed for Wheezing or Shortness of Breath. [facility] albuterol 90 mcg/actuati on inhaler 3 00:00: 00 Yes [id number] 2{puff} Inhale 2 Puffs every 6 (six) hours as needed for Wheezing or Shortness of Breath. [facility] albuterol 90 mcg/actuati on inhaler 10-26 00:00: 00 Yes [id number] 2{puff} Inhale 2 Puffs every 6 (six) hours as needed for Wheezing or Shortness of Breath. [facility] albuterol 90 mcg/actuati on inhaler 10-26 00:00: 00 Yes [id number] 2{puff} Inhale 2 Puffs every 6 (six) hours as needed for Wheezing or Shortness of Breath. [facility] albuterol 90 mcg/actuati on inhaler 316 00:00: 00 Yes [id number] 2{puff} Inhale 2 Puffs every 6 (six) hours as needed for Wheezing or Shortness of Breath. [facility] albuterol 90 mcg/actuati on inhaler 316 00:00: 00 Yes [id number] 2{puff} Inhale 2 Puffs every 6 (six) hours as needed for Wheezing or Shortness of Breath. [facility] albuterol 90 mcg/actuati on inhaler 3-16 00:00: 00 Yes [id number] 2{puff} Inhale 2 Puffs every 6 (six) hours as needed for Wheezing or Shortness of Breath. [facility] albuterol 90 mcg/actuati on inhaler 3-16 00:00: 00 Yes [id number] 2{puff} Inhale 2 Puffs every 6 (six) hours as needed for Wheezing or Shortness of Breath. [facility] albuterol 90 mcg/actuati on inhaler 16 00:00: 00 Yes [id number] 2{puff} Inhale 2 Puffs every 6 (six) hours as needed for Wheezing or Shortness of Breath. [facility] albuterol 90 mcg/actuati on inhaler 16 00:00: 00 Yes [id number] 2{puff} Inhale 2 Puffs every 6 (six) hours as needed for Wheezing or Shortness of Breath. [facility] albuterol 90 mcg/actuati on inhaler 10-26 00:00: 00 Yes [id number] 2{puff} Inhale 2 Puffs every 6 (six) hours as needed for Wheezing or Shortness of Breath. [facility] albuterol 90 mcg/actuati on inhaler 10-26 00:00: 00 Yes [id number] 2{puff} Inhale 2 Puffs every 6 (six) hours as needed for Wheezing or Shortness of Breath. [facility] glyBURIDE 5 mg tablet 16 00:00: 00 01-24 00:00 :00 No [id number] TAKE 1 TABLET BY MOUTH TWICE DAILY (NEEDS FOLLOW UP VISIT FOR FURTHER REFILLS [facility] glyBURIDE 5 mg tablet 2022-0 16 00:00: 00 01-24 00:00 :00 No [id number] TAKE 1 TABLET BY MOUTH TWICE DAILY (NEEDS FOLLOW UP VISIT FOR FURTHER REFILLS [facility] glyBURIDE 5 mg tablet 2022-0 -16 00:00: 00 01-24 00:00 :00 No [id number] TAKE 1 TABLET BY MOUTH TWICE DAILY (NEEDS FOLLOW UP VISIT FOR FURTHER REFILLS [facility] glyBURIDE 5 mg tablet 2022-0 3-16 00:00: 00 01-24 00:00 :00 No [id number] TAKE 1 TABLET BY MOUTH TWICE DAILY (NEEDS FOLLOW UP VISIT FOR FURTHER REFILLS [facility] glyBURIDE 5 mg tablet 2022-0 3-16 00:00: 00 14 00:00 :00 No [id number] TAKE 1 TABLET BY MOUTH TWICE DAILY (NEEDS FOLLOW UP VISIT FOR FURTHER REFILLS [facility] gabapentin 600 mg tablet 2022-0 -14 00:00: 00 Yes [id number] 600mg Take 1 tablet by mouth in the morning and 1 tablet at noon and 1 tablet in the evening. [facility] gabapentin 600 mg tablet 2022-0 14 00:00: 00 Yes [id number] 600mg Take 1 tablet by mouth in the morning and 1 tablet at noon and 1 tablet in the evening. [facility] gabapentin 600 mg tablet 2022-0 -14 00:00: 00 Yes [id number] 600mg Take 1 tablet by mouth in the morning and 1 tablet at noon and 1 tablet in the evening. [facility] gabapentin 600 mg tablet 2022-0 14 00:00: 00 Yes [id number] 600mg Take 1 tablet by mouth in the morning and 1 tablet at noon and 1 tablet in the evening. [facility] gabapentin 600 mg tablet 2022-0 14 00:00: 00 Yes [id number] 600mg Take 1 tablet by mouth in the morning and 1 tablet at noon and 1 tablet in the evening. [facility] gabapentin 600 mg tablet 2022-0 -14 00:00: 00 Yes [id number] 600mg Take 1 tablet by mouth in the morning and 1 tablet at noon and 1 tablet in the evening. [facility] gabapentin 600 mg tablet 2022-0 -14 00:00: 00 Yes [id number] 600mg Take 1 tablet by mouth in the morning and 1 tablet at noon and 1 tablet in the evening. [facility] gabapentin 600 mg tablet 2022-0 -14 00:00: 00 Yes [id number] 600mg Take 1 tablet by mouth in the morning and 1 tablet at noon and 1 tablet in the evening. [facility] gabapentin 600 mg tablet 2022-0 -14 00:00: 00 Yes [id number] 600mg Take 1 tablet by mouth in the morning and 1 tablet at noon and 1 tablet in the evening. [facility] gabapentin 600 mg tablet 3-0 3-14 00:00: 00 Yes [id number] 600mg Take 1 tablet by mouth in the morning and 1 tablet at noon and 1 tablet in the evening. [facility] gabapentin 600 mg tablet 3-0 3-14 00:00: 00 Yes [id number] 600mg Take 1 tablet by mouth in the morning and 1 tablet at noon and 1 tablet in the evening. [facility] gabapentin 600 mg tablet 3-0 3-14 00:00: 00 Yes [id number] 600mg Take 1 tablet by mouth in the morning and 1 tablet at noon and 1 tablet in the evening. [facility] gabapentin 600 mg tablet 3-0 3-14 00:00: 00 Yes [id number] 600mg Take 1 tablet by mouth in the morning and 1 tablet at noon and 1 tablet in the evening. [facility] gabapentin 600 mg tablet 3-0 -14 00:00: 00 Yes [id number] 600mg Take 1 tablet by mouth in the morning and 1 tablet at noon and 1 tablet in the evening. [facility] gabapentin 600 mg tablet 3-0 3-14 00:00: 00 Yes [id number] 600mg Take 1 tablet by mouth in the morning and 1 tablet at noon and 1 tablet in the evening. [facility] gabapentin 600 mg tablet 3-0 3-14 00:00: 00 Yes [id number] 600mg Take 1 tablet by mouth in the morning and 1 tablet at noon and 1 tablet in the evening. [facility] gabapentin 600 mg tablet 3-0 3-14 00:00: 00 Yes [id number] 600mg Take 1 tablet by mouth in the morning and 1 tablet at noon and 1 tablet in the evening. [facility] gabapentin 600 mg tablet 3-0 3-14 00:00: 00 Yes [id number] 600mg Take 1 tablet by mouth in the morning and 1 tablet at noon and 1 tablet in the evening. [facility] gabapentin 600 mg tablet 2023-0 3-14 00:00: 00 Yes [id number] 600mg Take 1 tablet by mouth in the morning and 1 tablet at noon and 1 tablet in the evening. [facility] gabapentin 600 mg tablet 3-0 3-14 00:00: 00 Yes [id number] 600mg Take 1 tablet by mouth in the morning and 1 tablet at noon and 1 tablet in the evening. [facility] gabapentin 600 mg tablet 3-0 3-14 00:00: 00 Yes [id number] 600mg Take 1 tablet by mouth in the morning and 1 tablet at noon and 1 tablet in the evening. [facility] gabapentin 600 mg tablet 3-0 3-14 00:00: 00 Yes [id number] 600mg Take 1 tablet by mouth in the morning and 1 tablet at noon and 1 tablet in the evening. [facility] gabapentin 600 mg tablet 3-0 3-14 00:00: 00 Yes [id number] 600mg Take 1 tablet by mouth in the morning and 1 tablet at noon and 1 tablet in the evening. [facility] gabapentin 600 mg tablet 3-0 -14 00:00: 00 Yes [id number] 600mg Take 1 tablet by mouth in the morning and 1 tablet at noon and 1 tablet in the evening. [facility] gabapentin 600 mg tablet 3-0 3-14 00:00: 00 Yes [id number] 600mg Take 1 tablet by mouth in the morning and 1 tablet at noon and 1 tablet in the evening. [facility] gabapentin 600 mg tablet 3-0 3-14 00:00: 00 Yes [id number] 600mg Take 1 tablet by mouth in the morning and 1 tablet at noon and 1 tablet in the evening. [facility] gabapentin 600 mg tablet 3-0 3-14 00:00: 00 Yes [id number] 600mg Take 1 tablet by mouth in the morning and 1 tablet at noon and 1 tablet in the evening. [facility] gabapentin 600 mg tablet 3-0 3-14 00:00: 00 Yes [id number] 600mg Take 1 tablet by mouth in the morning and 1 tablet at noon and 1 tablet in the evening. [facility] gabapentin 600 mg tablet 3-0 3-14 00:00: 00 Yes [id number] 600mg Take 1 tablet by mouth in the morning and 1 tablet at noon and 1 tablet in the evening. [facility] gabapentin 600 mg tablet 3-0 3-14 00:00: 00 Yes [id number] 600mg Take 1 tablet by mouth in the morning and 1 tablet at noon and 1 tablet in the evening. [facility] gabapentin 600 mg tablet 3-0 -14 00:00: 00 Yes [id number] 600mg Take 1 tablet by mouth in the morning and 1 tablet at noon and 1 tablet in the evening. [facility] gabapentin 600 mg tablet 3-0 3-14 00:00: 00 Yes [id number] 600mg Take 1 tablet by mouth in the morning and 1 tablet at noon and 1 tablet in the evening. [facility] gabapentin 600 mg tablet 3-0 -14 00:00: 00 Yes [id number] 600mg Take 1 tablet by mouth in the morning and 1 tablet at noon and 1 tablet in the evening. [facility] gabapentin 600 mg tablet 3-0 -14 00:00: 00 Yes [id number] 600mg Take 1 tablet by mouth in the morning and 1 tablet at noon and 1 tablet in the evening. [facility] gabapentin 600 mg tablet 3-0 3-14 00:00: 00 Yes [id number] 600mg Take 1 tablet by mouth in the morning and 1 tablet at noon and 1 tablet in the evening. [facility] gabapentin 600 mg tablet 3-0 3-14 00:00: 00 Yes [id number] 600mg Take 1 tablet by mouth in the morning and 1 tablet at noon and 1 tablet in the evening. [facility] gabapentin 600 mg tablet 3-0 3-14 00:00: 00 Yes [id number] 600mg Take 1 tablet by mouth in the morning and 1 tablet at noon and 1 tablet in the evening. [facility] gabapentin 600 mg tablet 3-0 3-14 00:00: 00 Yes [id number] 600mg Take 1 tablet by mouth in the morning and 1 tablet at noon and 1 tablet in the evening. [facility] gabapentin 600 mg tablet 3-0 3-14 00:00: 00 Yes [id number] 600mg Take 1 tablet by mouth in the morning and 1 tablet at noon and 1 tablet in the evening. [facility] gabapentin 600 mg tablet 3-0 3-14 00:00: 00 Yes [id number] 600mg Take 1 tablet by mouth in the morning and 1 tablet at noon and 1 tablet in the evening. [facility] gabapentin 600 mg tablet 3-0 3-14 00:00: 00 Yes [id number] 600mg Take 1 tablet by mouth in the morning and 1 tablet at noon and 1 tablet in the evening. [facility] gabapentin 600 mg tablet 3-0 3-14 00:00: 00 Yes [id number] 600mg Take 1 tablet by mouth in the morning and 1 tablet at noon and 1 tablet in the evening. [facility] gabapentin 600 mg tablet 3-0 3-14 00:00: 00 Yes [id number] 600mg Take 1 tablet by mouth in the morning and 1 tablet at noon and 1 tablet in the evening. [facility] gabapentin 600 mg tablet 3-0 3-14 00:00: 00 Yes [id number] 600mg Take 1 tablet by mouth in the morning and 1 tablet at noon and 1 tablet in the evening. [facility] gabapentin 600 mg tablet 3-0 3-14 00:00: 00 Yes [id number] 600mg Take 1 tablet by mouth in the morning and 1 tablet at noon and 1 tablet in the evening. [facility] gabapentin 600 mg tablet 3-0 3-14 00:00: 00 Yes [id number] 600mg Take 1 tablet by mouth in the morning and 1 tablet at noon and 1 tablet in the evening. [facility] gabapentin 600 mg tablet 3-0 3-14 00:00: 00 Yes [id number] 600mg Take 1 tablet by mouth in the morning and 1 tablet at noon and 1 tablet in the evening. [facility] gabapentin 600 mg tablet 3-0 3-14 00:00: 00 Yes [id number] 600mg Take 1 tablet by mouth in the morning and 1 tablet at noon and 1 tablet in the evening. [facility] gabapentin 600 mg tablet 3-0 3-14 00:00: 00 Yes [id number] 600mg Take 1 tablet by mouth in the morning and 1 tablet at noon and 1 tablet in the evening. [facility] gabapentin 600 mg tablet 3-0 3-14 00:00: 00 Yes [id number] 600mg Take 1 tablet by mouth in the morning and 1 tablet at noon and 1 tablet in the evening. [facility] gabapentin 600 mg tablet 3-0 3-14 00:00: 00 Yes [id number] 600mg Take 1 tablet by mouth in the morning and 1 tablet at noon and 1 tablet in the evening. [facility] gabapentin 600 mg tablet 3-0 -14 00:00: 00 Yes [id number] 600mg Take 1 tablet by mouth in the morning and 1 tablet at noon and 1 tablet in the evening. [facility] gabapentin 600 mg tablet 3-0 -14 00:00: 00 Yes [id number] 600mg Take 1 tablet by mouth in the morning and 1 tablet at noon and 1 tablet in the evening. [facility] gabapentin 600 mg tablet 3-0 -14 00:00: 00 Yes [id number] 600mg Take 1 tablet by mouth in the morning and 1 tablet at noon and 1 tablet in the evening. [facility] gabapentin 600 mg tablet 3-0 3-14 00:00: 00 Yes [id number] 600mg Take 1 tablet by mouth in the morning and 1 tablet at noon and 1 tablet in the evening. [facility] gabapentin 600 mg tablet 3-0 3-14 00:00: 00 Yes [id number] 600mg Take 1 tablet by mouth in the morning and 1 tablet at noon and 1 tablet in the evening. [facility] gabapentin 600 mg tablet 3-0 3-14 00:00: 00 Yes [id number] 600mg Take 1 tablet by mouth in the morning and 1 tablet at noon and 1 tablet in the evening. [facility] gabapentin 600 mg tablet 3-0 3-14 00:00: 00 Yes [id number] 600mg Take 1 tablet by mouth in the morning and 1 tablet at noon and 1 tablet in the evening. [facility] gabapentin 600 mg tablet 3-0 3-14 00:00: 00 Yes [id number] 600mg Take 1 tablet by mouth in the morning and 1 tablet at noon and 1 tablet in the evening. [facility] gabapentin 600 mg tablet 3-0 3-14 00:00: 00 Yes [id number] 600mg Take 1 tablet by mouth in the morning and 1 tablet at noon and 1 tablet in the evening. [facility] gabapentin 600 mg tablet 3-0 3-14 00:00: 00 Yes [id number] 600mg Take 1 tablet by mouth in the morning and 1 tablet at noon and 1 tablet in the evening. [facility] gabapentin 600 mg tablet 3-0 3-14 00:00: 00 Yes [id number] 600mg Take 1 tablet by mouth in the morning and 1 tablet at noon and 1 tablet in the evening. [facility] gabapentin 600 mg tablet 3-0 -14 00:00: 00 Yes [id number] 600mg Take 1 tablet by mouth in the morning and 1 tablet at noon and 1 tablet in the evening. [facility] gabapentin 600 mg tablet 3-0 -14 00:00: 00 Yes [id number] 600mg Take 1 tablet by mouth in the morning and 1 tablet at noon and 1 tablet in the evening. [facility] gabapentin 600 mg tablet 3-0 -14 00:00: 00 Yes [id number] 600mg Take 1 tablet by mouth in the morning and 1 tablet at noon and 1 tablet in the evening. [facility] gabapentin 600 mg tablet 3-0 3-14 00:00: 00 Yes [id number] 600mg Take 1 tablet by mouth in the morning and 1 tablet at noon and 1 tablet in the evening. [facility] gabapentin 600 mg tablet 3-0 3-14 00:00: 00 Yes [id number] 600mg Take 1 tablet by mouth in the morning and 1 tablet at noon and 1 tablet in the evening. [facility] gabapentin 600 mg tablet 2023-0 3-14 00:00: 00 01-30 00:00 :00 No [id number] 600mg Take 1 tablet by mouth in the morning and 1 tablet at noon and 1 tablet in the evening. [facility] gabapentin 600 mg tablet 0 3-14 00:00: 00 01-30 00:00 :00 No [id number] 600mg Take 1 tablet by mouth in the morning and 1 tablet at noon and 1 tablet in the evening. [facility] gabapentin 600 mg tablet 0 14 00:00: 00 01-30 00:00 :00 No [id number] 600mg Take 1 tablet by mouth in the morning and 1 tablet at noon and 1 tablet in the evening. [facility] gabapentin 600 mg tablet 2022-0 14 00:00: 00 01-30 00:00 :00 No [id number] 600mg Take 1 tablet by mouth in the morning and 1 tablet at noon and 1 tablet in the evening. [facility] gabapentin 600 mg tablet 14 00:00: 00 01-30 00:00 :00 No [id number] 600mg Take 1 tablet by mouth in the morning and 1 tablet at noon and 1 tablet in the evening. [facility] gabapentin 600 mg tablet 2022-14 00:00: 00 01-30 00:00 :00 No [id number] 600mg Take 1 tablet by mouth in the morning and 1 tablet at noon and 1 tablet in the evening. [facility] gabapentin 600 mg tablet 2022-0 14 00:00: 00 01-30 00:00 :00 No [id number] 600mg Take 1 tablet by mouth in the morning and 1 tablet at noon and 1 tablet in the evening. [facility] Butalbital- Acetaminoph en-Caff 50-300-40 mg per capsule 10-04 00:00: 00 Yes TAKE 1 CAPSULE BY MOUTH EVERY 6 HOURS NEEDED [facility] meclizine 25 mg tablet - 00:00: 00 Yes TAKE 1 TABLET BY MOUTH EVERY 8 HOURS [facility]ED [facility] ondansetron 4 mg tablet 0 10-04 00:00: 00 Yes TAKE 1 TABLET BY MOUTH EVERY 12 HOURS NEEDED [facility] Butalbital- Acetaminoph en-Caff 50-300-40 mg per capsule 0 10-04 00:00: 00 Yes TAKE 1 CAPSULE BY MOUTH EVERY 6 HOURS NEEDED [facility] meclizine 25 mg tablet 0 10-04 00:00: 00 Yes TAKE 1 TABLET BY MOUTH EVERY 8 HOURS NEEDED [facility] ondansetron 4 mg tablet 0 10-04 00:00: 00 Yes TAKE 1 TABLET BY MOUTH EVERY 12 HOURS NEEDED [facility] Butalbital- Acetaminoph en-Caff 50-300-40 mg per capsule 0 10-04 00:00: 00 Yes TAKE 1 CAPSULE BY MOUTH EVERY 6 HOURS NEEDED [facility] meclizine 25 mg tablet 0 10-04 00:00: 00 Yes TAKE 1 TABLET BY MOUTH EVERY 8 HOURS NEEDED [facility] ondansetron 4 mg tablet 0 10-04 00:00: 00 Yes TAKE 1 TABLET BY MOUTH EVERY 12 HOURS NEEDED [facility] Butalbital- Acetaminoph en-Caff 50-300-40 mg per capsule 0 10-04 00:00: 00 Yes TAKE 1 CAPSULE BY MOUTH EVERY 6 HOURS NEEDED [facility] meclizine 25 mg tablet 0 10-04 00:00: 00 Yes TAKE 1 TABLET BY MOUTH EVERY 8 HOURS NEEDED [facility] ondansetron 4 mg tablet 0 10-04 00:00: 00 Yes TAKE 1 TABLET BY MOUTH EVERY 12 HOURS NEEDED [facility] Butalbital- Acetaminoph en-Caff 50-300-40 mg per capsule 0 10-04 00:00: 00 Yes TAKE 1 CAPSULE BY MOUTH EVERY 6 HOURS NEEDED [facility] meclizine 25 mg tablet 0 10-04 00:00: 00 Yes TAKE 1 TABLET BY MOUTH EVERY 8 HOURS NEEDED [facility] ondansetron 4 mg tablet 2022-0 2- 00:00: 00 Yes TAKE 1 TABLET BY MOUTH EVERY 12 HOURS NEEDED [facility] Butalbital- Acetaminoph en-Caff 50-300-40 mg per capsule 2022-0 2 00:00: 00 Yes TAKE 1 CAPSULE BY MOUTH EVERY 6 HOURS NEEDED [facility] meclizine 25 mg tablet 2022-0 2- 00:00: 00 Yes TAKE 1 TABLET BY MOUTH EVERY 8 HOURS NEEDED [facility] ondansetron 4 mg tablet 2022-0 - 00:00: 00 Yes TAKE 1 TABLET BY MOUTH EVERY 12 HOURS NEEDED [facility] Butalbital- Acetaminoph en-Caff 50-300-40 mg per capsule 2022-0 10-04 00:00: 00 Yes TAKE 1 CAPSULE BY MOUTH EVERY 6 HOURS NEEDED [facility] ondansetron 4 mg tablet 2022-0 10-04 00:00: 00 Yes TAKE 1 TABLET BY MOUTH EVERY 12 HOURS NEEDED [facility] Butalbital- Acetaminoph en-Caff 50-300-40 mg per capsule 2022-0 - 00:00: 00 Yes TAKE 1 CAPSULE BY MOUTH EVERY 6 HOURS NEEDED [facility] ondansetron 4 mg tablet 2022-0 10-04 00:00: 00 Yes TAKE 1 TABLET BY MOUTH EVERY 12 HOURS NEEDED [facility] Butalbital- Acetaminoph en-Caff 50-300-40 mg per capsule 2022-0 - 00:00: 00 Yes TAKE 1 CAPSULE BY MOUTH EVERY 6 HOURS NEEDED [facility] ondansetron 4 mg tablet 2022-0 - 00:00: 00 Yes TAKE 1 TABLET BY MOUTH EVERY 12 HOURS NEEDED [facility] Butalbital- Acetaminoph en-Caff 50-300-40 mg per capsule 2022-0 2- 00:00: 00 Yes TAKE 1 CAPSULE BY MOUTH EVERY 6 HOURS NEEDED [facility] ondansetron 4 mg tablet 2022-0 2-22 00:00: 00 Yes TAKE 1 TABLET BY MOUTH EVERY 12 HOURS NEEDED [facility] Butalbital- Acetaminoph en-Caff 50-300-40 mg per capsule 2022-0 2- 00:00: 00 Yes TAKE 1 CAPSULE BY MOUTH EVERY 6 HOURS NEEDED [facility] ondansetron 4 mg tablet 2022-0 2- 00:00: 00 Yes TAKE 1 TABLET BY MOUTH EVERY 12 HOURS NEEDED [facility] Butalbital- Acetaminoph en-Caff 50-300-40 mg per capsule 2022-0 2- 00:00: 00 Yes TAKE 1 CAPSULE BY MOUTH EVERY 6 HOURS NEEDED [facility] ondansetron 4 mg tablet 2022-0 2- 00:00: 00 Yes TAKE 1 TABLET BY MOUTH EVERY 12 HOURS NEEDED [facility] Butalbital- Acetaminoph en-Caff 50-300-40 mg per capsule 2022-0 2- 00:00: 00 Yes TAKE 1 CAPSULE BY MOUTH EVERY 6 HOURS NEEDED [facility] ondansetron 4 mg tablet 2022-0 2- 00:00: 00 Yes TAKE 1 TABLET BY MOUTH EVERY 12 HOURS NEEDED [facility] Butalbital- Acetaminoph en-Caff 50-300-40 mg per capsule 2022-0 2- 00:00: 00 Yes TAKE 1 CAPSULE BY MOUTH EVERY 6 HOURS NEEDED [facility] ondansetron 4 mg tablet 2022-0 2- 00:00: 00 Yes TAKE 1 TABLET BY MOUTH EVERY 12 HOURS NEEDED [facility] Butalbital- Acetaminoph en-Caff 50-300-40 mg per capsule 2022-0 2- 00:00: 00 Yes TAKE 1 CAPSULE BY MOUTH EVERY 6 HOURS NEEDED [facility] ondansetron 4 mg tablet 2022-0 2- 00:00: 00 Yes TAKE 1 TABLET BY MOUTH EVERY 12 HOURS NEEDED [facility] Butalbital- Acetaminoph en-Caff 50-300-40 mg per capsule 2022-0 2- 00:00: 00 Yes TAKE 1 CAPSULE BY MOUTH EVERY 6 HOURS NEEDED [facility] ondansetron 4 mg tablet 2022-0 2- 00:00: 00 Yes TAKE 1 TABLET BY MOUTH EVERY 12 HOURS NEEDED [facility] Butalbital- Acetaminoph en-Caff 50-300-40 mg per capsule 2022-0 2- 00:00: 00 Yes TAKE 1 CAPSULE BY MOUTH EVERY 6 HOURS NEEDED [facility] ondansetron 4 mg tablet 2022-0 2- 00:00: 00 Yes TAKE 1 TABLET BY MOUTH EVERY 12 HOURS NEEDED [facility] Butalbital- Acetaminoph en-Caff 50-300-40 mg per capsule 2022-0 2 00:00: 00 Yes TAKE 1 CAPSULE BY MOUTH EVERY 6 HOURS NEEDED [facility] ondansetron 4 mg tablet 2022-0 2 00:00: 00 Yes TAKE 1 TABLET BY MOUTH EVERY 12 HOURS NEEDED [facility] Butalbital- Acetaminoph en-Caff 50-300-40 mg per capsule 2022-0 2- 00:00: 00 Yes TAKE 1 CAPSULE BY MOUTH EVERY 6 HOURS NEEDED [facility] ondansetron 4 mg tablet 2022-0 2 00:00: 00 Yes TAKE 1 TABLET BY MOUTH EVERY 12 HOURS NEEDED [facility] Butalbital- Acetaminoph en-Caff 50-300-40 mg per capsule 2022-0 10-04 00:00: 00 Yes TAKE 1 CAPSULE BY MOUTH EVERY 6 HOURS NEEDED [facility] ondansetron 4 mg tablet 2022-0 2- 00:00: 00 Yes TAKE 1 TABLET BY MOUTH EVERY 12 HOURS NEEDED [facility] Butalbital- Acetaminoph en-Caff 50-300-40 mg per capsule 2022-0 2- 00:00: 00 Yes TAKE 1 CAPSULE BY MOUTH EVERY 6 HOURS NEEDED [facility] ondansetron 4 mg tablet 3-0 2- 00:00: 00 Yes TAKE 1 TABLET BY MOUTH EVERY 12 HOURS NEEDED [facility] Butalbital- Acetaminoph en-Caff 50-300-40 mg per capsule 2023-0 2- 00:00: 00 Yes TAKE 1 CAPSULE BY MOUTH EVERY 6 HOURS NEEDED [facility] ondansetron 4 mg tablet 3-0 2-22 00:00: 00 Yes TAKE 1 TABLET BY MOUTH EVERY 12 HOURS NEEDED [facility] Butalbital- Acetaminoph en-Caff 50-300-40 mg per capsule 3-0 2- 00:00: 00 Yes TAKE 1 CAPSULE BY MOUTH EVERY 6 HOURS NEEDED [facility] ondansetron 4 mg tablet 2022-0 2- 00:00: 00 Yes TAKE 1 TABLET BY MOUTH EVERY 12 HOURS NEEDED [facility] Butalbital- Acetaminoph en-Caff 50-300-40 mg per capsule 2022-0 - 00:00: 00 Yes TAKE 1 CAPSULE BY MOUTH EVERY 6 HOURS NEEDED [facility] ondansetron 4 mg tablet 3-0 2- 00:00: 00 Yes TAKE 1 TABLET BY MOUTH EVERY 12 HOURS NEEDED [facility] Butalbital- Acetaminoph en-Caff 50-300-40 mg per capsule 2022-0 - 00:00: 00 Yes TAKE 1 CAPSULE BY MOUTH EVERY 6 HOURS NEEDED [facility] ondansetron 4 mg tablet 2022-0 - 00:00: 00 Yes TAKE 1 TABLET BY MOUTH EVERY 12 HOURS NEEDED [facility] Butalbital- Acetaminoph en-Caff 50-300-40 mg per capsule 2022-0 2- 00:00: 00 Yes TAKE 1 CAPSULE BY MOUTH EVERY 6 HOURS NEEDED [facility] ondansetron 4 mg tablet 3-0 2- 00:00: 00 Yes TAKE 1 TABLET BY MOUTH EVERY 12 HOURS NEEDED [facility] Butalbital- Acetaminoph en-Caff 50-300-40 mg per capsule 2022-0 2- 00:00: 00 Yes TAKE 1 CAPSULE BY MOUTH EVERY 6 HOURS NEEDED [facility] ondansetron 4 mg tablet 3-0 2-22 00:00: 00 Yes TAKE 1 TABLET BY MOUTH EVERY 12 HOURS NEEDED [facility] Butalbital- Acetaminoph en-Caff 50-300-40 mg per capsule 2022-0 2- 00:00: 00 Yes TAKE 1 CAPSULE BY MOUTH EVERY 6 HOURS NEEDED [facility] ondansetron 4 mg tablet 2022-0 2- 00:00: 00 Yes TAKE 1 TABLET BY MOUTH EVERY 12 HOURS NEEDED [facility] Butalbital- Acetaminoph en-Caff 50-300-40 mg per capsule 2022-0 2- 00:00: 00 Yes TAKE 1 CAPSULE BY MOUTH EVERY 6 HOURS NEEDED [facility] ondansetron 4 mg tablet 2022-0 2- 00:00: 00 Yes TAKE 1 TABLET BY MOUTH EVERY 12 HOURS NEEDED [facility] Butalbital- Acetaminoph en-Caff 50-300-40 mg per capsule 2022-0 2 00:00: 00 Yes TAKE 1 CAPSULE BY MOUTH EVERY 6 HOURS NEEDED [facility] ondansetron 4 mg tablet 2022-0 2- 00:00: 00 Yes TAKE 1 TABLET BY MOUTH EVERY 12 HOURS NEEDED [facility] Butalbital- Acetaminoph en-Caff 50-300-40 mg per capsule 2022-0 2- 00:00: 00 Yes TAKE 1 CAPSULE BY MOUTH EVERY 6 HOURS NEEDED [facility] ondansetron 4 mg tablet 2022-0 - 00:00: 00 Yes TAKE 1 TABLET BY MOUTH EVERY 12 HOURS NEEDED [facility] Butalbital- Acetaminoph en-Caff 50-300-40 mg per capsule 2022-0 2- 00:00: 00 Yes TAKE 1 CAPSULE BY MOUTH EVERY 6 HOURS NEEDED [facility] ondansetron 4 mg tablet 3-0 2- 00:00: 00 Yes TAKE 1 TABLET BY MOUTH EVERY 12 HOURS NEEDED [facility] Butalbital- Acetaminoph en-Caff 50-300-40 mg per capsule 2022-0 2- 00:00: 00 Yes TAKE 1 CAPSULE BY MOUTH EVERY 6 HOURS NEEDED [facility] ondansetron 4 mg tablet 2022-0 2- 00:00: 00 Yes TAKE 1 TABLET BY MOUTH EVERY 12 HOURS NEEDED [facility] Butalbital- Acetaminoph en-Caff 50-300-40 mg per capsule 2022-0 2- 00:00: 00 Yes TAKE 1 CAPSULE BY MOUTH EVERY 6 HOURS NEEDED [facility] ondansetron 4 mg tablet 2022-0 2- 00:00: 00 Yes TAKE 1 TABLET BY MOUTH EVERY 12 HOURS NEEDED [facility] Butalbital- Acetaminoph en-Caff 50-300-40 mg per capsule 2022-0 2- 00:00: 00 Yes TAKE 1 CAPSULE BY MOUTH EVERY 6 HOURS NEEDED [facility] ondansetron 4 mg tablet 2022-0 2- 00:00: 00 Yes TAKE 1 TABLET BY MOUTH EVERY 12 HOURS NEEDED [facility] Butalbital- Acetaminoph en-Caff 50-300-40 mg per capsule 2022-0 2 00:00: 00 Yes TAKE 1 CAPSULE BY MOUTH EVERY 6 HOURS NEEDED [facility] ondansetron 4 mg tablet 2022-0 - 00:00: 00 Yes TAKE 1 TABLET BY MOUTH EVERY 12 HOURS NEEDED [facility] Butalbital- Acetaminoph en-Caff 50-300-40 mg per capsule 2022-0 2- 00:00: 00 Yes TAKE 1 CAPSULE BY MOUTH EVERY 6 HOURS NEEDED [facility] ondansetron 4 mg tablet 2022-0 2- 00:00: 00 Yes TAKE 1 TABLET BY MOUTH EVERY 12 HOURS NEEDED [facility] Butalbital- Acetaminoph en-Caff 50-300-40 mg per capsule 2022-0 2- 00:00: 00 Yes TAKE 1 CAPSULE BY MOUTH EVERY 6 HOURS NEEDED [facility] ondansetron 4 mg tablet 2022-0 2- 00:00: 00 Yes TAKE 1 TABLET BY MOUTH EVERY 12 HOURS NEEDED [facility] Butalbital- Acetaminoph en-Caff 50-300-40 mg per capsule 2022-0 2- 00:00: 00 Yes TAKE 1 CAPSULE BY MOUTH EVERY 6 HOURS NEEDED [facility] ondansetron 4 mg tablet 2022-0 2- 00:00: 00 Yes TAKE 1 TABLET BY MOUTH EVERY 12 HOURS NEEDED [facility] Butalbital- Acetaminoph en-Caff 50-300-40 mg per capsule 2022-0 2- 00:00: 00 Yes TAKE 1 CAPSULE BY MOUTH EVERY 6 HOURS NEEDED [facility] ondansetron 4 mg tablet 2022-0 2- 00:00: 00 Yes TAKE 1 TABLET BY MOUTH EVERY 12 HOURS NEEDED [facility] Butalbital- Acetaminoph en-Caff 50-300-40 mg per capsule 2022-0 2- 00:00: 00 Yes TAKE 1 CAPSULE BY MOUTH EVERY 6 HOURS NEEDED [facility] ondansetron 4 mg tablet 2022-0 2 00:00: 00 Yes TAKE 1 TABLET BY MOUTH EVERY 12 HOURS NEEDED [facility] Butalbital- Acetaminoph en-Caff 50-300-40 mg per capsule 2022-0 2- 00:00: 00 Yes TAKE 1 CAPSULE BY MOUTH EVERY 6 HOURS NEEDED [facility] ondansetron 4 mg tablet 2022-0 10-04 00:00: 00 Yes TAKE 1 TABLET BY MOUTH EVERY 12 HOURS NEEDED [facility] Butalbital- Acetaminoph en-Caff 50-300-40 mg per capsule 2022-0 10-04 00:00: 00 Yes TAKE 1 CAPSULE BY MOUTH EVERY 6 HOURS NEEDED [facility] ondansetron 4 mg tablet 2022-0 2- 00:00: 00 Yes TAKE 1 TABLET BY MOUTH EVERY 12 HOURS NEEDED [facility] Butalbital- Acetaminoph en-Caff 50-300-40 mg per capsule 2022-0 2- 00:00: 00 Yes TAKE 1 CAPSULE BY MOUTH EVERY 6 HOURS NEEDED [facility] ondansetron 4 mg tablet 2022-0 2- 00:00: 00 Yes TAKE 1 TABLET BY MOUTH EVERY 12 HOURS NEEDED [facility] Butalbital- Acetaminoph en-Caff 50-300-40 mg per capsule 2022-0 2- 00:00: 00 Yes TAKE 1 CAPSULE BY MOUTH EVERY 6 HOURS NEEDED [facility] ondansetron 4 mg tablet 2022-0 2- 00:00: 00 Yes TAKE 1 TABLET BY MOUTH EVERY 12 HOURS NEEDED [facility] Butalbital- Acetaminoph en-Caff 50-300-40 mg per capsule 2022-0 2- 00:00: 00 Yes TAKE 1 CAPSULE BY MOUTH EVERY 6 HOURS NEEDED [facility] ondansetron 4 mg tablet 2022-0 2- 00:00: 00 Yes TAKE 1 TABLET BY MOUTH EVERY 12 HOURS NEEDED [facility] Butalbital- Acetaminoph en-Caff 50-300-40 mg per capsule 2022-0 10-04 00:00: 00 Yes TAKE 1 CAPSULE BY MOUTH EVERY 6 HOURS NEEDED [facility] ondansetron 4 mg tablet 2022-0 10-04 00:00: 00 Yes TAKE 1 TABLET BY MOUTH EVERY 12 HOURS NEEDED [facility] Butalbital- Acetaminoph en-Caff 50-300-40 mg per capsule 2022-0 10-04 00:00: 00 Yes TAKE 1 CAPSULE BY MOUTH EVERY 6 HOURS NEEDED [facility] ondansetron 4 mg tablet 2022-0 10-04 00:00: 00 Yes TAKE 1 TABLET BY MOUTH EVERY 12 HOURS NEEDED [facility] Butalbital- Acetaminoph en-Caff 50-300-40 mg per capsule 2022-0 2- 00:00: 00 Yes TAKE 1 CAPSULE BY MOUTH EVERY 6 HOURS NEEDED [facility] ondansetron 4 mg tablet 2022-0 - 00:00: 00 Yes TAKE 1 TABLET BY MOUTH EVERY 12 HOURS NEEDED [facility] Butalbital- Acetaminoph en-Caff 50-300-40 mg per capsule 2022-0 2- 00:00: 00 Yes TAKE 1 CAPSULE BY MOUTH EVERY 6 HOURS NEEDED [facility] ondansetron 4 mg tablet 3-0 2- 00:00: 00 Yes TAKE 1 TABLET BY MOUTH EVERY 12 HOURS NEEDED [facility] Butalbital- Acetaminoph en-Caff 50-300-40 mg per capsule 2022-0 2- 00:00: 00 Yes TAKE 1 CAPSULE BY MOUTH EVERY 6 HOURS NEEDED [facility] ondansetron 4 mg tablet 2022-0 2- 00:00: 00 Yes TAKE 1 TABLET BY MOUTH EVERY 12 HOURS NEEDED [facility] Butalbital- Acetaminoph en-Caff 50-300-40 mg per capsule 2022-0 2- 00:00: 00 Yes TAKE 1 CAPSULE BY MOUTH EVERY 6 HOURS NEEDED [facility] ondansetron 4 mg tablet 2022-0 2- 00:00: 00 Yes TAKE 1 TABLET BY MOUTH EVERY 12 HOURS NEEDED [facility] Butalbital- Acetaminoph en-Caff 50-300-40 mg per capsule 2022-0 10-04 00:00: 00 Yes TAKE 1 CAPSULE BY MOUTH EVERY 6 HOURS NEEDED [facility] ondansetron 4 mg tablet 2022-0 2- 00:00: 00 Yes TAKE 1 TABLET BY MOUTH EVERY 12 HOURS NEEDED [facility] Butalbital- Acetaminoph en-Caff 50-300-40 mg per capsule 2022-0 10-04 00:00: 00 Yes TAKE 1 CAPSULE BY MOUTH EVERY 6 HOURS NEEDED [facility] ondansetron 4 mg tablet 2022-0 10-04 00:00: 00 Yes TAKE 1 TABLET BY MOUTH EVERY 12 HOURS NEEDED [facility] Butalbital- Acetaminoph en-Caff 50-300-40 mg per capsule 2022-0 2- 00:00: 00 Yes TAKE 1 CAPSULE BY MOUTH EVERY 6 HOURS NEEDED [facility] ondansetron 4 mg tablet 2022-0 2- 00:00: 00 Yes TAKE 1 TABLET BY MOUTH EVERY 12 HOURS NEEDED [facility] Butalbital- Acetaminoph en-Caff 50-300-40 mg per capsule 2022-0 2- 00:00: 00 Yes TAKE 1 CAPSULE BY MOUTH EVERY 6 HOURS NEEDED [facility] ondansetron 4 mg tablet 2022-0 2- 00:00: 00 Yes TAKE 1 TABLET BY MOUTH EVERY 12 HOURS NEEDED [facility] Butalbital- Acetaminoph en-Caff 50-300-40 mg per capsule 2022-0 2- 00:00: 00 Yes TAKE 1 CAPSULE BY MOUTH EVERY 6 HOURS NEEDED [facility] ondansetron 4 mg tablet 2022-0 2- 00:00: 00 Yes TAKE 1 TABLET BY MOUTH EVERY 12 HOURS NEEDED [facility] Butalbital- Acetaminoph en-Caff 50-300-40 mg per capsule 2022-0 2- 00:00: 00 Yes TAKE 1 CAPSULE BY MOUTH EVERY 6 HOURS NEEDED [facility] ondansetron 4 mg tablet 2022-0 2- 00:00: 00 Yes TAKE 1 TABLET BY MOUTH EVERY 12 HOURS NEEDED [facility] Butalbital- Acetaminoph en-Caff 50-300-40 mg per capsule 2022-0 2 00:00: 00 Yes TAKE 1 CAPSULE BY MOUTH EVERY 6 HOURS NEEDED [facility] ondansetron 4 mg tablet 2022-0 10-04 00:00: 00 Yes TAKE 1 TABLET BY MOUTH EVERY 12 HOURS NEEDED [facility] Butalbital- Acetaminoph en-Caff 50-300-40 mg per capsule 2022-0 2- 00:00: 00 Yes TAKE 1 CAPSULE BY MOUTH EVERY 6 HOURS NEEDED [facility] ondansetron 4 mg tablet 2022-0 2- 00:00: 00 Yes TAKE 1 TABLET BY MOUTH EVERY 12 HOURS NEEDED [facility] Butalbital- Acetaminoph en-Caff 50-300-40 mg per capsule 2022-0 2- 00:00: 00 Yes TAKE 1 CAPSULE BY MOUTH EVERY 6 HOURS NEEDED [facility] ondansetron 4 mg tablet 2022-0 2- 00:00: 00 Yes TAKE 1 TABLET BY MOUTH EVERY 12 HOURS NEEDED [facility] Butalbital- Acetaminoph en-Caff 50-300-40 mg per capsule 2022-0 2- 00:00: 00 Yes TAKE 1 CAPSULE BY MOUTH EVERY 6 HOURS NEEDED [facility] ondansetron 4 mg tablet 2022-0 2- 00:00: 00 Yes TAKE 1 TABLET BY MOUTH EVERY 12 HOURS NEEDED [facility] Butalbital- Acetaminoph en-Caff 50-300-40 mg per capsule 2022-0 2- 00:00: 00 Yes TAKE 1 CAPSULE BY MOUTH EVERY 6 HOURS NEEDED [facility] ondansetron 4 mg tablet 2022-0 2- 00:00: 00 Yes TAKE 1 TABLET BY MOUTH EVERY 12 HOURS NEEDED [facility] Butalbital- Acetaminoph en-Caff 50-300-40 mg per capsule 2022-0 10-04 00:00: 00 Yes TAKE 1 CAPSULE BY MOUTH EVERY 6 HOURS NEEDED [facility] ondansetron 4 mg tablet 2022-0 10-04 00:00: 00 Yes TAKE 1 TABLET BY MOUTH EVERY 12 HOURS NEEDED [facility] Butalbital- Acetaminoph en-Caff 50-300-40 mg per capsule 2022-0 2- 00:00: 00 Yes TAKE 1 CAPSULE BY MOUTH EVERY 6 HOURS NEEDED [facility] ondansetron 4 mg tablet 2022-0 10-04 00:00: 00 Yes TAKE 1 TABLET BY MOUTH EVERY 12 HOURS NEEDED [facility] Butalbital- Acetaminoph en-Caff 50-300-40 mg per capsule 2022-0 10-04 00:00: 00 Yes TAKE 1 CAPSULE BY MOUTH EVERY 6 HOURS NEEDED [facility] ondansetron 4 mg tablet 2022-0 2- 00:00: 00 Yes TAKE 1 TABLET BY MOUTH EVERY 12 HOURS NEEDED [facility] Butalbital- Acetaminoph en-Caff 50-300-40 mg per capsule 2022-0 2- 00:00: 00 Yes TAKE 1 CAPSULE BY MOUTH EVERY 6 HOURS NEEDED [facility] ondansetron 4 mg tablet 2022-0 2- 00:00: 00 Yes TAKE 1 TABLET BY MOUTH EVERY 12 HOURS NEEDED [facility] Butalbital- Acetaminoph en-Caff 50-300-40 mg per capsule 2022-0 2- 00:00: 00 Yes TAKE 1 CAPSULE BY MOUTH EVERY 6 HOURS NEEDED [facility] ondansetron 4 mg tablet 2022-0 2- 00:00: 00 Yes TAKE 1 TABLET BY MOUTH EVERY 12 HOURS NEEDED [facility] Butalbital- Acetaminoph en-Caff 50-300-40 mg per capsule 2022-0 2- 00:00: 00 Yes TAKE 1 CAPSULE BY MOUTH EVERY 6 HOURS NEEDED [facility] ondansetron 4 mg tablet 2022-0 2- 00:00: 00 Yes TAKE 1 TABLET BY MOUTH EVERY 12 HOURS NEEDED [facility] Butalbital- Acetaminoph en-Caff 50-300-40 mg per capsule 2022-0 10-04 00:00: 00 Yes TAKE 1 CAPSULE BY MOUTH EVERY 6 HOURS NEEDED [facility] ondansetron 4 mg tablet 2022-0 10-04 00:00: 00 Yes TAKE 1 TABLET BY MOUTH EVERY 12 HOURS NEEDED [facility] Butalbital- Acetaminoph en-Caff 50-300-40 mg per capsule 2022-0 2- 00:00: 00 Yes TAKE 1 CAPSULE BY MOUTH EVERY 6 HOURS NEEDED [facility] ondansetron 4 mg tablet 2022-0 - 00:00: 00 Yes TAKE 1 TABLET BY MOUTH EVERY 12 HOURS NEEDED [facility] Butalbital- Acetaminoph en-Caff 50-300-40 mg per capsule 2022-0 2- 00:00: 00 Yes TAKE 1 CAPSULE BY MOUTH EVERY 6 HOURS NEEDED [facility] ondansetron 4 mg tablet 2022-0 2- 00:00: 00 Yes TAKE 1 TABLET BY MOUTH EVERY 12 HOURS NEEDED [facility] Butalbital- Acetaminoph en-Caff 50-300-40 mg per capsule 2022-0 2- 00:00: 00 Yes TAKE 1 CAPSULE BY MOUTH EVERY 6 HOURS NEEDED [facility] ondansetron 4 mg tablet 3-0 2- 00:00: 00 Yes TAKE 1 TABLET BY MOUTH EVERY 12 HOURS NEEDED [facility] Butalbital- Acetaminoph en-Caff 50-300-40 mg per capsule 2022-0 2- 00:00: 00 Yes TAKE 1 CAPSULE BY MOUTH EVERY 6 HOURS NEEDED [facility] ondansetron 4 mg tablet 2022-0 2- 00:00: 00 Yes TAKE 1 TABLET BY MOUTH EVERY 12 HOURS NEEDED [facility] Butalbital- Acetaminoph en-Caff 50-300-40 mg per capsule 2022-0 2- 00:00: 00 Yes TAKE 1 CAPSULE BY MOUTH EVERY 6 HOURS NEEDED [facility] ondansetron 4 mg tablet 2022-0 2- 00:00: 00 Yes TAKE 1 TABLET BY MOUTH EVERY 12 HOURS NEEDED [facility] Butalbital- Acetaminoph en-Caff 50-300-40 mg per capsule 2022-0 10-04 00:00: 00 Yes TAKE 1 CAPSULE BY MOUTH EVERY 6 HOURS NEEDED [facility] ondansetron 4 mg tablet 2022-0 - 00:00: 00 Yes TAKE 1 TABLET BY MOUTH EVERY 12 HOURS NEEDED [facility] Butalbital- Acetaminoph en-Caff 50-300-40 mg per capsule 2022-0 10-04 00:00: 00 Yes TAKE 1 CAPSULE BY MOUTH EVERY 6 HOURS NEEDED [facility] ondansetron 4 mg tablet 2022-0 10-04 00:00: 00 Yes TAKE 1 TABLET BY MOUTH EVERY 12 HOURS NEEDED [facility] Butalbital- Acetaminoph en-Caff 50-300-40 mg per capsule 2022-0 2- 00:00: 00 Yes TAKE 1 CAPSULE BY MOUTH EVERY 6 HOURS NEEDED [facility] ondansetron 4 mg tablet 2022-0 2- 00:00: 00 Yes TAKE 1 TABLET BY MOUTH EVERY 12 HOURS NEEDED [facility] Butalbital- Acetaminoph en-Caff 50-300-40 mg per capsule 2022-0 2- 00:00: 00 Yes TAKE 1 CAPSULE BY MOUTH EVERY 6 HOURS NEEDED [facility] ondansetron 4 mg tablet 2022-0 2- 00:00: 00 Yes TAKE 1 TABLET BY MOUTH EVERY 12 HOURS NEEDED [facility] Butalbital- Acetaminoph en-Caff 50-300-40 mg per capsule 2022-0 2- 00:00: 00 Yes TAKE 1 CAPSULE BY MOUTH EVERY 6 HOURS NEEDED [facility] ondansetron 4 mg tablet 2022-0 2- 00:00: 00 Yes TAKE 1 TABLET BY MOUTH EVERY 12 HOURS NEEDED [facility] Butalbital- Acetaminoph en-Caff 50-300-40 mg per capsule 2022-0 2- 00:00: 00 Yes TAKE 1 CAPSULE BY MOUTH EVERY 6 HOURS NEEDED [facility] ondansetron 4 mg tablet 2022-0 2- 00:00: 00 Yes TAKE 1 TABLET BY MOUTH EVERY 12 HOURS NEEDED [facility] Butalbital- Acetaminoph en-Caff 50-300-40 mg per capsule 2022-0 2 00:00: 00 Yes TAKE 1 CAPSULE BY MOUTH EVERY 6 HOURS NEEDED [facility] ondansetron 4 mg tablet 2022-0 2 00:00: 00 Yes TAKE 1 TABLET BY MOUTH EVERY 12 HOURS NEEDED [facility] Butalbital- Acetaminoph en-Caff 50-300-40 mg per capsule 2022-0 2- 00:00: 00 Yes TAKE 1 CAPSULE BY MOUTH EVERY 6 HOURS NEEDED [facility] ondansetron 4 mg tablet 2022-0 2- 00:00: 00 Yes TAKE 1 TABLET BY MOUTH EVERY 12 HOURS NEEDED [facility] Butalbital- Acetaminoph en-Caff 50-300-40 mg per capsule 2022-0 2- 00:00: 00 Yes TAKE 1 CAPSULE BY MOUTH EVERY 6 HOURS NEEDED [facility] ondansetron 4 mg tablet 2022-0 2- 00:00: 00 Yes TAKE 1 TABLET BY MOUTH EVERY 12 HOURS NEEDED [facility] Butalbital- Acetaminoph en-Caff 50-300-40 mg per capsule 2022-0 2- 00:00: 00 Yes TAKE 1 CAPSULE BY MOUTH EVERY 6 HOURS NEEDED [facility] ondansetron 4 mg tablet 2022-0 2- 00:00: 00 Yes TAKE 1 TABLET BY MOUTH EVERY 12 HOURS NEEDED [facility] Butalbital- Acetaminoph en-Caff 50-300-40 mg per capsule 2022-0 2- 00:00: 00 Yes TAKE 1 CAPSULE BY MOUTH EVERY 6 HOURS NEEDED [facility] ondansetron 4 mg tablet 2022-0 2- 00:00: 00 Yes TAKE 1 TABLET BY MOUTH EVERY 12 HOURS NEEDED [facility] Butalbital- Acetaminoph en-Caff 50-300-40 mg per capsule 2022-0 2- 00:00: 00 Yes TAKE 1 CAPSULE BY MOUTH EVERY 6 HOURS NEEDED [facility] ondansetron 4 mg tablet 2022-0 2- 00:00: 00 Yes TAKE 1 TABLET BY MOUTH EVERY 12 HOURS NEEDED [facility] Butalbital- Acetaminoph en-Caff 50-300-40 mg per capsule 2022-0 2- 00:00: 00 Yes TAKE 1 CAPSULE BY MOUTH EVERY 6 HOURS NEEDED [facility] ondansetron 4 mg tablet 2022-0 2- 00:00: 00 Yes TAKE 1 TABLET BY MOUTH EVERY 12 HOURS NEEDED [facility] Butalbital- Acetaminoph en-Caff 50-300-40 mg per capsule 2022-0 2- 00:00: 00 Yes TAKE 1 CAPSULE BY MOUTH EVERY 6 HOURS NEEDED [facility] ondansetron 4 mg tablet 2022-0 2- 00:00: 00 Yes TAKE 1 TABLET BY MOUTH EVERY 12 HOURS NEEDED [facility] Butalbital- Acetaminoph en-Caff 50-300-40 mg per capsule 2022-0 2- 00:00: 00 Yes TAKE 1 CAPSULE BY MOUTH EVERY 6 HOURS NEEDED [facility] ondansetron 4 mg tablet 2022-0 2- 00:00: 00 Yes TAKE 1 TABLET BY MOUTH EVERY 12 HOURS NEEDED [facility] Butalbital- Acetaminoph en-Caff 50-300-40 mg per capsule 2022-0 2- 00:00: 00 Yes TAKE 1 CAPSULE BY MOUTH EVERY 6 HOURS NEEDED [facility] ondansetron 4 mg tablet 2022-0 2- 00:00: 00 Yes TAKE 1 TABLET BY MOUTH EVERY 12 HOURS NEEDED [facility] Butalbital- Acetaminoph en-Caff 50-300-40 mg per capsule 2022-0 2- 00:00: 00 Yes TAKE 1 CAPSULE BY MOUTH EVERY 6 HOURS NEEDED [facility] ondansetron 4 mg tablet 2022-0 2- 00:00: 00 Yes TAKE 1 TABLET BY MOUTH EVERY 12 HOURS NEEDED [facility] Butalbital- Acetaminoph en-Caff 50-300-40 mg per capsule 2022-0 10-04 00:00: 00 Yes TAKE 1 CAPSULE BY MOUTH EVERY 6 HOURS NEEDED [facility] ondansetron 4 mg tablet 2022-0 2- 00:00: 00 Yes TAKE 1 TABLET BY MOUTH EVERY 12 HOURS NEEDED [facility] Butalbital- Acetaminoph en-Caff 50-300-40 mg per capsule 2022-0 2- 00:00: 00 Yes TAKE 1 CAPSULE BY MOUTH EVERY 6 HOURS NEEDED [facility] ondansetron 4 mg tablet 2022-0 10-04 00:00: 00 Yes TAKE 1 TABLET BY MOUTH EVERY 12 HOURS NEEDED [facility] Butalbital- Acetaminoph en-Caff 50-300-40 mg per capsule 2022-0 2- 00:00: 00 Yes TAKE 1 CAPSULE BY MOUTH EVERY 6 HOURS NEEDED [facility] ondansetron 4 mg tablet 2022-0 2- 00:00: 00 Yes TAKE 1 TABLET BY MOUTH EVERY 12 HOURS NEEDED [facility] Butalbital- Acetaminoph en-Caff 50-300-40 mg per capsule 2022-0 2- 00:00: 00 Yes TAKE 1 CAPSULE BY MOUTH EVERY 6 HOURS NEEDED [facility] ondansetron 4 mg tablet 3-0 2- 00:00: 00 Yes TAKE 1 TABLET BY MOUTH EVERY 12 HOURS NEEDED [facility] Butalbital- Acetaminoph en-Caff 50-300-40 mg per capsule 2022-0 2- 00:00: 00 Yes TAKE 1 CAPSULE BY MOUTH EVERY 6 HOURS NEEDED [facility] ondansetron 4 mg tablet 2022-0 2- 00:00: 00 Yes TAKE 1 TABLET BY MOUTH EVERY 12 HOURS NEEDED [facility] Butalbital- Acetaminoph en-Caff 50-300-40 mg per capsule 2022-0 2- 00:00: 00 Yes TAKE 1 CAPSULE BY MOUTH EVERY 6 HOURS NEEDED [facility] ondansetron 4 mg tablet 2022-0 2- 00:00: 00 Yes TAKE 1 TABLET BY MOUTH EVERY 12 HOURS NEEDED [facility] Butalbital- Acetaminoph en-Caff 50-300-40 mg per capsule 2022-0 10-04 00:00: 00 Yes TAKE 1 CAPSULE BY MOUTH EVERY 6 HOURS NEEDED [facility] ondansetron 4 mg tablet 2022-0 - 00:00: 00 Yes TAKE 1 TABLET BY MOUTH EVERY 12 HOURS NEEDED [facility] Butalbital- Acetaminoph en-Caff 50-300-40 mg per capsule 2022-0 - 00:00: 00 Yes TAKE 1 CAPSULE BY MOUTH EVERY 6 HOURS NEEDED [facility] ondansetron 4 mg tablet 2022-0 10-04 00:00: 00 Yes TAKE 1 TABLET BY MOUTH EVERY 12 HOURS NEEDED [facility] Butalbital- Acetaminoph en-Caff 50-300-40 mg per capsule 2022-0 2- 00:00: 00 Yes TAKE 1 CAPSULE BY MOUTH EVERY 6 HOURS NEEDED [facility] ondansetron 4 mg tablet 2022-0 2- 00:00: 00 Yes TAKE 1 TABLET BY MOUTH EVERY 12 HOURS NEEDED [facility] Butalbital- Acetaminoph en-Caff 50-300-40 mg per capsule 2022-0 2- 00:00: 00 Yes TAKE 1 CAPSULE BY MOUTH EVERY 6 HOURS NEEDED [facility] ondansetron 4 mg tablet 2022-0 2- 00:00: 00 Yes TAKE 1 TABLET BY MOUTH EVERY 12 HOURS NEEDED [facility] Butalbital- Acetaminoph en-Caff 50-300-40 mg per capsule 2022-0 2- 00:00: 00 Yes TAKE 1 CAPSULE BY MOUTH EVERY 6 HOURS NEEDED [facility] ondansetron 4 mg tablet 2022-0 2- 00:00: 00 Yes TAKE 1 TABLET BY MOUTH EVERY 12 HOURS NEEDED [facility] Butalbital- Acetaminoph en-Caff 50-300-40 mg per capsule 2022-0 2 00:00: 00 Yes TAKE 1 CAPSULE BY MOUTH EVERY 6 HOURS NEEDED [facility] ondansetron 4 mg tablet 2022-0 10-04 00:00: 00 Yes TAKE 1 TABLET BY MOUTH EVERY 12 HOURS NEEDED [facility] Butalbital- Acetaminoph en-Caff 50-300-40 mg per capsule 2022-0 10-04 00:00: 00 Yes TAKE 1 CAPSULE BY MOUTH EVERY 6 HOURS NEEDED [facility] ondansetron 4 mg tablet 2022-0 10-04 00:00: 00 Yes TAKE 1 TABLET BY MOUTH EVERY 12 HOURS NEEDED [facility] Butalbital- Acetaminoph en-Caff 50-300-40 mg per capsule 2022-0 10-04 00:00: 00 Yes TAKE 1 CAPSULE BY MOUTH EVERY 6 HOURS NEEDED [facility] ondansetron 4 mg tablet 2022-0 2 00:00: 00 Yes TAKE 1 TABLET BY MOUTH EVERY 12 HOURS NEEDED [facility] Butalbital- Acetaminoph en-Caff 50-300-40 mg per capsule 2022-0 2- 00:00: 00 Yes TAKE 1 CAPSULE BY MOUTH EVERY 6 HOURS NEEDED [facility] ondansetron 4 mg tablet 2022-0 2- 00:00: 00 Yes TAKE 1 TABLET BY MOUTH EVERY 12 HOURS NEEDED [facility] Butalbital- Acetaminoph en-Caff 50-300-40 mg per capsule 2022-0 2- 00:00: 00 Yes TAKE 1 CAPSULE BY MOUTH EVERY 6 HOURS NEEDED [facility] ondansetron 4 mg tablet 2022-0 2- 00:00: 00 Yes TAKE 1 TABLET BY MOUTH EVERY 12 HOURS NEEDED [facility] Butalbital- Acetaminoph en-Caff 50-300-40 mg per capsule 2022-0 2- 00:00: 00 Yes TAKE 1 CAPSULE BY MOUTH EVERY 6 HOURS NEEDED [facility] ondansetron 4 mg tablet 2022-0 2- 00:00: 00 Yes TAKE 1 TABLET BY MOUTH EVERY 12 HOURS NEEDED [facility] Butalbital- Acetaminoph en-Caff 50-300-40 mg per capsule 2022-0 2- 00:00: 00 Yes TAKE 1 CAPSULE BY MOUTH EVERY 6 HOURS NEEDED [facility] ondansetron 4 mg tablet 2022-0 2- 00:00: 00 Yes TAKE 1 TABLET BY MOUTH EVERY 12 HOURS NEEDED [facility] Butalbital- Acetaminoph en-Caff 50-300-40 mg per capsule 2022-0 2- 00:00: 00 Yes TAKE 1 CAPSULE BY MOUTH EVERY 6 HOURS NEEDED [facility] ondansetron 4 mg tablet 2022-0 2- 00:00: 00 Yes TAKE 1 TABLET BY MOUTH EVERY 12 HOURS NEEDED [facility] Butalbital- Acetaminoph en-Caff 50-300-40 mg per capsule 2022-0 2- 00:00: 00 Yes TAKE 1 CAPSULE BY MOUTH EVERY 6 HOURS NEEDED [facility] ondansetron 4 mg tablet 2022-0 2- 00:00: 00 Yes TAKE 1 TABLET BY MOUTH EVERY 12 HOURS NEEDED [facility] Butalbital- Acetaminoph en-Caff 50-300-40 mg per capsule 2022-0 2- 00:00: 00 Yes TAKE 1 CAPSULE BY MOUTH EVERY 6 HOURS NEEDED [facility] ondansetron 4 mg tablet 3-0 2- 00:00: 00 Yes TAKE 1 TABLET BY MOUTH EVERY 12 HOURS NEEDED [facility] Butalbital- Acetaminoph en-Caff 50-300-40 mg per capsule 2022-0 2- 00:00: 00 Yes TAKE 1 CAPSULE BY MOUTH EVERY 6 HOURS NEEDED [facility] ondansetron 4 mg tablet 2022-0 2- 00:00: 00 Yes TAKE 1 TABLET BY MOUTH EVERY 12 HOURS NEEDED [facility] Butalbital- Acetaminoph en-Caff 50-300-40 mg per capsule 2022-0 2- 00:00: 00 Yes TAKE 1 CAPSULE BY MOUTH EVERY 6 HOURS NEEDED [facility] ondansetron 4 mg tablet 2022-0 2- 00:00: 00 Yes TAKE 1 TABLET BY MOUTH EVERY 12 HOURS NEEDED [facility] Butalbital- Acetaminoph en-Caff 50-300-40 mg per capsule 2022-0 - 00:00: 00 Yes TAKE 1 CAPSULE BY MOUTH EVERY 6 HOURS NEEDED [facility] ondansetron 4 mg tablet 2022-0 2- 00:00: 00 Yes TAKE 1 TABLET BY MOUTH EVERY 12 HOURS NEEDED [facility] Butalbital- Acetaminoph en-Caff 50-300-40 mg per capsule 2022-0 2- 00:00: 00 Yes TAKE 1 CAPSULE BY MOUTH EVERY 6 HOURS NEEDED [facility] ondansetron 4 mg tablet 2022-0 2- 00:00: 00 Yes TAKE 1 TABLET BY MOUTH EVERY 12 HOURS NEEDED [facility] Butalbital- Acetaminoph en-Caff 50-300-40 mg per capsule 2022-0 2- 00:00: 00 Yes TAKE 1 CAPSULE BY MOUTH EVERY 6 HOURS NEEDED [facility] ondansetron 4 mg tablet 2022-0 2- 00:00: 00 Yes TAKE 1 TABLET BY MOUTH EVERY 12 HOURS NEEDED [facility] Butalbital- Acetaminoph en-Caff 50-300-40 mg per capsule 2022-0 2- 00:00: 00 Yes TAKE 1 CAPSULE BY MOUTH EVERY 6 HOURS NEEDED [facility] ondansetron 4 mg tablet 3-0 2- 00:00: 00 Yes TAKE 1 TABLET BY MOUTH EVERY 12 HOURS NEEDED [facility] Butalbital- Acetaminoph en-Caff 50-300-40 mg per capsule 2022-0 2- 00:00: 00 Yes TAKE 1 CAPSULE BY MOUTH EVERY 6 HOURS NEEDED [facility] ondansetron 4 mg tablet 2022-0 2- 00:00: 00 Yes TAKE 1 TABLET BY MOUTH EVERY 12 HOURS NEEDED [facility] Butalbital- Acetaminoph en-Caff 50-300-40 mg per capsule 2022-0 2- 00:00: 00 Yes TAKE 1 CAPSULE BY MOUTH EVERY 6 HOURS NEEDED [facility] ondansetron 4 mg tablet 2022-0 2- 00:00: 00 Yes TAKE 1 TABLET BY MOUTH EVERY 12 HOURS NEEDED [facility] Butalbital- Acetaminoph en-Caff 50-300-40 mg per capsule 2022-0 10-04 00:00: 00 Yes TAKE 1 CAPSULE BY MOUTH EVERY 6 HOURS NEEDED [facility] ondansetron 4 mg tablet 2022-0 - 00:00: 00 Yes TAKE 1 TABLET BY MOUTH EVERY 12 HOURS NEEDED [facility] Butalbital- Acetaminoph en-Caff 50-300-40 mg per capsule 2022-0 - 00:00: 00 Yes TAKE 1 CAPSULE BY MOUTH EVERY 6 HOURS NEEDED [facility] ondansetron 4 mg tablet 2022-0 10-04 00:00: 00 Yes TAKE 1 TABLET BY MOUTH EVERY 12 HOURS NEEDED [facility] Butalbital- Acetaminoph en-Caff 50-300-40 mg per capsule 2022-0 2- 00:00: 00 Yes TAKE 1 CAPSULE BY MOUTH EVERY 6 HOURS NEEDED [facility] ondansetron 4 mg tablet 2022-0 2- 00:00: 00 Yes TAKE 1 TABLET BY MOUTH EVERY 12 HOURS NEEDED [facility] Butalbital- Acetaminoph en-Caff 50-300-40 mg per capsule 2022-0 2- 00:00: 00 Yes TAKE 1 CAPSULE BY MOUTH EVERY 6 HOURS NEEDED [facility] ondansetron 4 mg tablet 2023-0 2- 00:00: 00 Yes TAKE 1 TABLET BY MOUTH EVERY 12 HOURS NEEDED [facility] Butalbital- Acetaminoph en-Caff 50-300-40 mg per capsule 2022-0 2- 00:00: 00 Yes TAKE 1 CAPSULE BY MOUTH EVERY 6 HOURS NEEDED [facility] ondansetron 4 mg tablet 2022-0 2- 00:00: 00 Yes TAKE 1 TABLET BY MOUTH EVERY 12 HOURS NEEDED [facility] Butalbital- Acetaminoph en-Caff 50-300-40 mg per capsule 2022-0 10-04 00:00: 00 Yes TAKE 1 CAPSULE BY MOUTH EVERY 6 HOURS NEEDED [facility] ondansetron 4 mg tablet 2022-0 10-04 00:00: 00 Yes TAKE 1 TABLET BY MOUTH EVERY 12 HOURS NEEDED [facility] Butalbital- Acetaminoph en-Caff 50-300-40 mg per capsule 2022-0 10-04 00:00: 00 Yes TAKE 1 CAPSULE BY MOUTH EVERY 6 HOURS NEEDED [facility] ondansetron 4 mg tablet 2022-0 10-04 00:00: 00 Yes TAKE 1 TABLET BY MOUTH EVERY 12 HOURS NEEDED [facility] Butalbital- Acetaminoph en-Caff 50-300-40 mg per capsule 2022-0 10-04 00:00: 00 Yes TAKE 1 CAPSULE BY MOUTH EVERY 6 HOURS NEEDED [facility] ondansetron 4 mg tablet 2022-0 2- 00:00: 00 Yes TAKE 1 TABLET BY MOUTH EVERY 12 HOURS NEEDED [facility] Butalbital- Acetaminoph en-Caff 50-300-40 mg per capsule 2022-0 2- 00:00: 00 Yes TAKE 1 CAPSULE BY MOUTH EVERY 6 HOURS NEEDED [facility] ondansetron 4 mg tablet 2022-0 2- 00:00: 00 Yes TAKE 1 TABLET BY MOUTH EVERY 12 HOURS NEEDED [facility] Butalbital- Acetaminoph en-Caff 50-300-40 mg per capsule 2022-0 2- 00:00: 00 Yes TAKE 1 CAPSULE BY MOUTH EVERY 6 HOURS NEEDED [facility] ondansetron 4 mg tablet 2022-0 2- 00:00: 00 Yes TAKE 1 TABLET BY MOUTH EVERY 12 HOURS NEEDED [facility] Butalbital- Acetaminoph en-Caff 50-300-40 mg per capsule 2022-0 2- 00:00: 00 Yes TAKE 1 CAPSULE BY MOUTH EVERY 6 HOURS NEEDED [facility] ondansetron 4 mg tablet 2022-0 2- 00:00: 00 Yes TAKE 1 TABLET BY MOUTH EVERY 12 HOURS NEEDED [facility] Butalbital- Acetaminoph en-Caff 50-300-40 mg per capsule 2022-0 2 00:00: 00 Yes TAKE 1 CAPSULE BY MOUTH EVERY 6 HOURS NEEDED [facility] ondansetron 4 mg tablet 2022-0 10-04 00:00: 00 Yes TAKE 1 TABLET BY MOUTH EVERY 12 HOURS NEEDED [facility] Butalbital- Acetaminoph en-Caff 50-300-40 mg per capsule 2022-0 2 00:00: 00 Yes TAKE 1 CAPSULE BY MOUTH EVERY 6 HOURS NEEDED [facility] ondansetron 4 mg tablet 2022-0 10-04 00:00: 00 Yes TAKE 1 TABLET BY MOUTH EVERY 12 HOURS NEEDED [facility] Butalbital- Acetaminoph en-Caff 50-300-40 mg per capsule 2022-0 - 00:00: 00 Yes TAKE 1 CAPSULE BY MOUTH EVERY 6 HOURS NEEDED [facility] ondansetron 4 mg tablet 2022-0 2- 00:00: 00 Yes TAKE 1 TABLET BY MOUTH EVERY 12 HOURS NEEDED [facility] Butalbital- Acetaminoph en-Caff 50-300-40 mg per capsule 2022-0 2- 00:00: 00 Yes TAKE 1 CAPSULE BY MOUTH EVERY 6 HOURS NEEDED [facility] ondansetron 4 mg tablet 2022-0 2- 00:00: 00 Yes TAKE 1 TABLET BY MOUTH EVERY 12 HOURS NEEDED [facility] Butalbital- Acetaminoph en-Caff 50-300-40 mg per capsule 2022-0 2- 00:00: 00 Yes TAKE 1 CAPSULE BY MOUTH EVERY 6 HOURS NEEDED [facility] ondansetron 4 mg tablet 2022-0 2- 00:00: 00 Yes TAKE 1 TABLET BY MOUTH EVERY 12 HOURS NEEDED [facility] Butalbital- Acetaminoph en-Caff 50-300-40 mg per capsule 2022-0 2- 00:00: 00 Yes TAKE 1 CAPSULE BY MOUTH EVERY 6 HOURS NEEDED [facility] ondansetron 4 mg tablet 2022-0 2- 00:00: 00 Yes TAKE 1 TABLET BY MOUTH EVERY 12 HOURS NEEDED [facility] Butalbital- Acetaminoph en-Caff 50-300-40 mg per capsule 2022-0 - 00:00: 00 Yes TAKE 1 CAPSULE BY MOUTH EVERY 6 HOURS NEEDED [facility] ondansetron 4 mg tablet 2022-0 2- 00:00: 00 Yes TAKE 1 TABLET BY MOUTH EVERY 12 HOURS NEEDED [facility] Butalbital- Acetaminoph en-Caff 50-300-40 mg per capsule 2022-0 2- 00:00: 00 Yes TAKE 1 CAPSULE BY MOUTH EVERY 6 HOURS NEEDED [facility] ondansetron 4 mg tablet 2022-0 2- 00:00: 00 Yes TAKE 1 TABLET BY MOUTH EVERY 12 HOURS NEEDED [facility] Butalbital- Acetaminoph en-Caff 50-300-40 mg per capsule 2022-0 2- 00:00: 00 Yes TAKE 1 CAPSULE BY MOUTH EVERY 6 HOURS NEEDED [facility] ondansetron 4 mg tablet 2022-0 2- 00:00: 00 Yes TAKE 1 TABLET BY MOUTH EVERY 12 HOURS NEEDED [facility] Butalbital- Acetaminoph en-Caff 50-300-40 mg per capsule 2022-0 2- 00:00: 00 Yes TAKE 1 CAPSULE BY MOUTH EVERY 6 HOURS NEEDED [facility] ondansetron 4 mg tablet 2022-0 2- 00:00: 00 Yes TAKE 1 TABLET BY MOUTH EVERY 12 HOURS NEEDED [facility] Butalbital- Acetaminoph en-Caff 50-300-40 mg per capsule 2022-0 2-22 00:00: 00 Yes TAKE 1 CAPSULE BY MOUTH EVERY 6 HOURS NEEDED [facility] ondansetron 4 mg tablet 2022-0 2-22 00:00: 00 Yes TAKE 1 TABLET BY MOUTH EVERY 12 HOURS NEEDED [facility] Butalbital- Acetaminoph en-Caff 50-300-40 mg per capsule 2022-0 2-22 00:00: 00 Yes TAKE 1 CAPSULE BY MOUTH EVERY 6 HOURS NEEDED [facility] ondansetron 4 mg tablet 2022-0 2-22 00:00: 00 Yes TAKE 1 TABLET BY MOUTH EVERY 12 HOURS NEEDED [facility] Butalbital- Acetaminoph en-Caff 50-300-40 mg per capsule 2022-0 2- 00:00: 00 Yes TAKE 1 CAPSULE BY MOUTH EVERY 6 HOURS NEEDED [facility] ondansetron 4 mg tablet 2022-0 2- 00:00: 00 Yes TAKE 1 TABLET BY MOUTH EVERY 12 HOURS NEEDED [facility] meclizine 25 mg tablet 2022-0 2-22 00:00: 00 12-07 00:00 :00 No TAKE 1 TABLET BY MOUTH EVERY 8 HOURS NEEDED [facility] meclizine 25 mg tablet 2022-0 2-22 00:00: 00 12-07 00:00 :00 No TAKE 1 TABLET BY MOUTH EVERY 8 HOURS NEEDED [facility] escitalopra m oxalate (LEXAPRO) 20 mg tablet 2022-0 2-21 00:00: 00 Yes [id number] 20mg Take 1 tablet by mouth in the morning. [facility] escitalopra m oxalate (LEXAPRO) 20 mg tablet 2022-0 2-21 00:00: 00 Yes [id number] 20mg Take 1 tablet by mouth in the morning. [facility] escitalopra m oxalate (LEXAPRO) 20 mg tablet 2022-0 2-21 00:00: 00 Yes [id number] 20mg Take 1 tablet by mouth in the morning. [facility] escitalopra m oxalate (LEXAPRO) 20 mg tablet 3-0 2-21 00:00: 00 Yes [id number] 20mg Take 1 tablet by mouth in the morning. [facility] escitalopra m oxalate (LEXAPRO) 20 mg tablet 3-0 2-21 00:00: 00 Yes [id number] 20mg Take 1 tablet by mouth in the morning. [facility] escitalopra m oxalate (LEXAPRO) 20 mg tablet 2022-0 2-21 00:00: 00 Yes [id number] 20mg Take 1 tablet by mouth in the morning. [facility] escitalopra m oxalate (LEXAPRO) 20 mg tablet 2022-0 2- 00:00: 00 Yes [id number] 20mg Take 1 tablet by mouth in the morning. [facility] escitalopra m oxalate (LEXAPRO) 20 mg tablet 2022-0 2-21 00:00: 00 Yes [id number] 20mg Take 1 tablet by mouth in the morning. [facility] escitalopra m oxalate (LEXAPRO) 20 mg tablet 2022-0 2-21 00:00: 00 Yes [id number] 20mg Take 1 tablet by mouth in the morning. [facility] escitalopra m oxalate (LEXAPRO) 20 mg tablet 2022-0 2-21 00:00: 00 Yes [id number] 20mg Take 1 tablet by mouth in the morning. [facility] escitalopra m oxalate (LEXAPRO) 20 mg tablet 2022-0 2-21 00:00: 00 Yes [id number] 20mg Take 1 tablet by mouth in the morning. [facility] escitalopra m oxalate (LEXAPRO) 20 mg tablet 3-0 2-21 00:00: 00 Yes [id number] 20mg Take 1 tablet by mouth in the morning. [facility] escitalopra m oxalate (LEXAPRO) 20 mg tablet 3-0 2-21 00:00: 00 Yes [id number] 20mg Take 1 tablet by mouth in the morning. [facility] escitalopra m oxalate (LEXAPRO) 20 mg tablet 3-0 2-21 00:00: 00 Yes [id number] 20mg Take 1 tablet by mouth in the morning. [facility] escitalopra m oxalate (LEXAPRO) 20 mg tablet 2022-0 2-21 00:00: 00 Yes [id number] 20mg Take 1 tablet by mouth in the morning. [facility] escitalopra m oxalate (LEXAPRO) 20 mg tablet 2022-0 2-21 00:00: 00 Yes [id number] 20mg Take 1 tablet by mouth in the morning. [facility] escitalopra m oxalate (LEXAPRO) 20 mg tablet 2022-0 2- 00:00: 00 Yes [id number] 20mg Take 1 tablet by mouth in the morning. [facility] escitalopra m oxalate (LEXAPRO) 20 mg tablet 2022-0 2 00:00: 00 Yes [id number] 20mg Take 1 tablet by mouth in the morning. [facility] escitalopra m oxalate (LEXAPRO) 20 mg tablet 2022-0 2 00:00: 00 Yes [id number] 20mg Take 1 tablet by mouth in the morning. [facility] escitalopra m oxalate (LEXAPRO) 20 mg tablet 2022-0 2- 00:00: 00 Yes [id number] 20mg Take 1 tablet by mouth in the morning. [facility] escitalopra m oxalate (LEXAPRO) 20 mg tablet 2022-0 2- 00:00: 00 Yes [id number] 20mg Take 1 tablet by mouth in the morning. [facility] escitalopra m oxalate (LEXAPRO) 20 mg tablet 2022-0 2-21 00:00: 00 Yes [id number] 20mg Take 1 tablet by mouth in the morning. [facility] escitalopra m oxalate (LEXAPRO) 20 mg tablet 3-0 2-21 00:00: 00 Yes [id number] 20mg Take 1 tablet by mouth in the morning. [facility] escitalopra m oxalate (LEXAPRO) 20 mg tablet 3-0 2-21 00:00: 00 Yes [id number] 20mg Take 1 tablet by mouth in the morning. [facility] escitalopra m oxalate (LEXAPRO) 20 mg tablet 2022-0 2-21 00:00: 00 Yes [id number] 20mg Take 1 tablet by mouth in the morning. [facility] escitalopra m oxalate (LEXAPRO) 20 mg tablet 2022-0 2-21 00:00: 00 Yes [id number] 20mg Take 1 tablet by mouth in the morning. [facility] escitalopra m oxalate (LEXAPRO) 20 mg tablet 2022-0 2 00:00: 00 Yes [id number] 20mg Take 1 tablet by mouth in the morning. [facility] escitalopra m oxalate (LEXAPRO) 20 mg tablet 2022-0 10-03 00:00: 00 Yes [id number] 20mg Take 1 tablet by mouth in the morning. [facility] escitalopra m oxalate (LEXAPRO) 20 mg tablet 2022-0 2- 00:00: 00 Yes [id number] 20mg Take 1 tablet by mouth in the morning. [facility] escitalopra m oxalate (LEXAPRO) 20 mg tablet 2022-0 2 00:00: 00 Yes [id number] 20mg Take 1 tablet by mouth in the morning. [facility] escitalopra m oxalate (LEXAPRO) 20 mg tablet 2022-0 2 00:00: 00 Yes [id number] 20mg Take 1 tablet by mouth in the morning. [facility] escitalopra m oxalate (LEXAPRO) 20 mg tablet 2022-0 2-21 00:00: 00 Yes [id number] 20mg Take 1 tablet by mouth in the morning. [facility] escitalopra m oxalate (LEXAPRO) 20 mg tablet 3-0 2-21 00:00: 00 Yes [id number] 20mg Take 1 tablet by mouth in the morning. [facility] escitalopra m oxalate (LEXAPRO) 20 mg tablet 3-0 2-21 00:00: 00 Yes [id number] 20mg Take 1 tablet by mouth in the morning. [facility] escitalopra m oxalate (LEXAPRO) 20 mg tablet 2022-0 221 00:00: 00 Yes [id number] 20mg Take 1 tablet by mouth in the morning. [facility] escitalopra m oxalate (LEXAPRO) 20 mg tablet 2022-0 2- 00:00: 00 Yes [id number] 20mg Take 1 tablet by mouth in the morning. [facility] escitalopra m oxalate (LEXAPRO) 20 mg tablet 2022-0 2- 00:00: 00 Yes [id number] 20mg Take 1 tablet by mouth in the morning. [facility] escitalopra m oxalate (LEXAPRO) 20 mg tablet 2022-0 2 00:00: 00 Yes [id number] 20mg Take 1 tablet by mouth in the morning. [facility] escitalopra m oxalate (LEXAPRO) 20 mg tablet 2022-0 2 00:00: 00 Yes [id number] 20mg Take 1 tablet by mouth in the morning. [facility] escitalopra m oxalate (LEXAPRO) 20 mg tablet 2022-0 10-03 00:00: 00 Yes [id number] 20mg Take 1 tablet by mouth in the morning. [facility] escitalopra m oxalate (LEXAPRO) 20 mg tablet 2022-0 10-03 00:00: 00 Yes [id number] 20mg Take 1 tablet by mouth in the morning. [facility] escitalopra m oxalate (LEXAPRO) 20 mg tablet 2022-0 2 00:00: 00 Yes [id number] 20mg Take 1 tablet by mouth in the morning. [facility] escitalopra m oxalate (LEXAPRO) 20 mg tablet 2022-0 2- 00:00: 00 Yes [id number] 20mg Take 1 tablet by mouth in the morning. [facility] escitalopra m oxalate (LEXAPRO) 20 mg tablet 2022-0 2- 00:00: 00 Yes [id number] 20mg Take 1 tablet by mouth in the morning. [facility] escitalopra m oxalate (LEXAPRO) 20 mg tablet 2022-0 2- 00:00: 00 Yes [id number] 20mg Take 1 tablet by mouth in the morning. [facility] escitalopra m oxalate (LEXAPRO) 20 mg tablet 2022-0 2- 00:00: 00 Yes [id number] 20mg Take 1 tablet by mouth in the morning. [facility] escitalopra m oxalate (LEXAPRO) 20 mg tablet 2022-0 2 00:00: 00 Yes [id number] 20mg Take 1 tablet by mouth in the morning. [facility] escitalopra m oxalate (LEXAPRO) 20 mg tablet 2022-0 2 00:00: 00 Yes [id number] 20mg Take 1 tablet by mouth in the morning. [facility] escitalopra m oxalate (LEXAPRO) 20 mg tablet 2022-0 10-03 00:00: 00 Yes [id number] 20mg Take 1 tablet by mouth in the morning. [facility] escitalopra m oxalate (LEXAPRO) 20 mg tablet 2022-0 2- 00:00: 00 Yes [id number] 20mg Take 1 tablet by mouth in the morning. [facility] escitalopra m oxalate (LEXAPRO) 20 mg tablet 2022-0 10-03 00:00: 00 Yes [id number] 20mg Take 1 tablet by mouth in the morning. [facility] escitalopra m oxalate (LEXAPRO) 20 mg tablet 2022-0 2 00:00: 00 Yes [id number] 20mg Take 1 tablet by mouth in the morning. [facility] escitalopra m oxalate (LEXAPRO) 20 mg tablet 2022-0 2- 00:00: 00 Yes [id number] 20mg Take 1 tablet by mouth in the morning. [facility] escitalopra m oxalate (LEXAPRO) 20 mg tablet 2022-0 2- 00:00: 00 Yes [id number] 20mg Take 1 tablet by mouth in the morning. [facility] escitalopra m oxalate (LEXAPRO) 20 mg tablet 2022-0 2-21 00:00: 00 Yes [id number] 20mg Take 1 tablet by mouth in the morning. [facility] escitalopra m oxalate (LEXAPRO) 20 mg tablet 3-0 2-21 00:00: 00 Yes [id number] 20mg Take 1 tablet by mouth in the morning. [facility] escitalopra m oxalate (LEXAPRO) 20 mg tablet 3-0 2-21 00:00: 00 Yes [id number] 20mg Take 1 tablet by mouth in the morning. [facility] escitalopra m oxalate (LEXAPRO) 20 mg tablet 3-0 2-21 00:00: 00 Yes [id number] 20mg Take 1 tablet by mouth in the morning. [facility] escitalopra m oxalate (LEXAPRO) 20 mg tablet 2022-0 2- 00:00: 00 Yes [id number] 20mg Take 1 tablet by mouth in the morning. [facility] escitalopra m oxalate (LEXAPRO) 20 mg tablet 3-0 2-21 00:00: 00 Yes [id number] 20mg Take 1 tablet by mouth in the morning. [facility] escitalopra m oxalate (LEXAPRO) 20 mg tablet 2022-0 2 00:00: 00 Yes [id number] 20mg Take 1 tablet by mouth in the morning. [facility] escitalopra m oxalate (LEXAPRO) 20 mg tablet 2022-0 2-21 00:00: 00 Yes [id number] 20mg Take 1 tablet by mouth in the morning. [facility] escitalopra m oxalate (LEXAPRO) 20 mg tablet 3-0 2-21 00:00: 00 Yes [id number] 20mg Take 1 tablet by mouth in the morning. [facility] escitalopra m oxalate (LEXAPRO) 20 mg tablet 3-0 2-21 00:00: 00 Yes [id number] 20mg Take 1 tablet by mouth in the morning. [facility] escitalopra m oxalate (LEXAPRO) 20 mg tablet 3-0 2-21 00:00: 00 Yes [id number] 20mg Take 1 tablet by mouth in the morning. [facility] escitalopra m oxalate (LEXAPRO) 20 mg tablet 3-0 2-21 00:00: 00 Yes [id number] 20mg Take 1 tablet by mouth in the morning. [facility] escitalopra m oxalate (LEXAPRO) 20 mg tablet 2022-0 2- 00:00: 00 Yes [id number] 20mg Take 1 tablet by mouth in the morning. [facility] escitalopra m oxalate (LEXAPRO) 20 mg tablet 2022-0 2 00:00: 00 Yes [id number] 20mg Take 1 tablet by mouth in the morning. [facility] escitalopra m oxalate (LEXAPRO) 20 mg tablet 2022-0 2 00:00: 00 Yes [id number] 20mg Take 1 tablet by mouth in the morning. [facility] escitalopra m oxalate (LEXAPRO) 20 mg tablet 2022-0 10-03 00:00: 00 Yes [id number] 20mg Take 1 tablet by mouth in the morning. [facility] escitalopra m oxalate (LEXAPRO) 20 mg tablet 2022-0 10-03 00:00: 00 Yes [id number] 20mg Take 1 tablet by mouth in the morning. [facility] escitalopra m oxalate (LEXAPRO) 20 mg tablet 2022-0 2 00:00: 00 Yes [id number] 20mg Take 1 tablet by mouth in the morning. [facility] escitalopra m oxalate (LEXAPRO) 20 mg tablet 2022-0 2 00:00: 00 Yes [id number] 20mg Take 1 tablet by mouth in the morning. [facility] escitalopra m oxalate (LEXAPRO) 20 mg tablet 2022-0 2 00:00: 00 Yes [id number] 20mg Take 1 tablet by mouth in the morning. [facility] escitalopra m oxalate (LEXAPRO) 20 mg tablet 2022-0 2 00:00: 00 Yes [id number] 20mg Take 1 tablet by mouth in the morning. [facility] escitalopra m oxalate (LEXAPRO) 20 mg tablet 3-0 2-21 00:00: 00 Yes [id number] 20mg Take 1 tablet by mouth in the morning. [facility] escitalopra m oxalate (LEXAPRO) 20 mg tablet 2022-0 2-21 00:00: 00 Yes [id number] 20mg Take 1 tablet by mouth in the morning. [facility] escitalopra m oxalate (LEXAPRO) 20 mg tablet 2022-0 2- 00:00: 00 Yes [id number] 20mg Take 1 tablet by mouth in the morning. [facility] escitalopra m oxalate (LEXAPRO) 20 mg tablet 2022-0 2- 00:00: 00 Yes [id number] 20mg Take 1 tablet by mouth in the morning. [facility] escitalopra m oxalate (LEXAPRO) 20 mg tablet 2022-0 2- 00:00: 00 Yes [id number] 20mg Take 1 tablet by mouth in the morning. [facility] escitalopra m oxalate (LEXAPRO) 20 mg tablet 2022-0 10-03 00:00: 00 Yes [id number] 20mg Take 1 tablet by mouth in the morning. [facility] escitalopra m oxalate (LEXAPRO) 20 mg tablet 2022-0 2 00:00: 00 Yes [id number] 20mg Take 1 tablet by mouth in the morning. [facility] escitalopra m oxalate (LEXAPRO) 20 mg tablet 2022-0 2 00:00: 00 Yes [id number] 20mg Take 1 tablet by mouth in the morning. [facility] escitalopra m oxalate (LEXAPRO) 20 mg tablet 2022-0 2- 00:00: 00 Yes [id number] 20mg Take 1 tablet by mouth in the morning. [facility] escitalopra m oxalate (LEXAPRO) 20 mg tablet 2022-0 2- 00:00: 00 Yes [id number] 20mg Take 1 tablet by mouth in the morning. [facility] escitalopra m oxalate (LEXAPRO) 20 mg tablet 2022-0 2- 00:00: 00 Yes [id number] 20mg Take 1 tablet by mouth in the morning. [facility] escitalopra m oxalate (LEXAPRO) 20 mg tablet 2022-0 2-21 00:00: 00 Yes [id number] 20mg Take 1 tablet by mouth in the morning. [facility] escitalopra m oxalate (LEXAPRO) 20 mg tablet 2022-0 2-21 00:00: 00 Yes [id number] 20mg Take 1 tablet by mouth in the morning. [facility] escitalopra m oxalate (LEXAPRO) 20 mg tablet 2022-0 2-21 00:00: 00 03-06 00:00 :00 No [id number] 20mg Take 1 tablet by mouth in the morning. [facility] escitalopra m oxalate (LEXAPRO) 20 mg tablet 2022-0 2-21 00:00: 00 03-06 00:00 :00 No [id number] 20mg Take 1 tablet by mouth in the morning. [facility] escitalopra m oxalate (LEXAPRO) 20 mg tablet 2022-0 2-21 00:00: 00 03-06 00:00 :00 No [id number] 20mg Take 1 tablet by mouth in the morning. [facility] escitalopra m oxalate (LEXAPRO) 20 mg tablet 2022-0 2-21 00:00: 00 03-06 00:00 :00 No [id number] 20mg Take 1 tablet by mouth in the morning. [facility] escitalopra m oxalate (LEXAPRO) 20 mg tablet 2022-0 2-21 00:00: 00 03-06 00:00 :00 No [id number] 20mg Take 1 tablet by mouth in the morning. [facility] escitalopra m oxalate (LEXAPRO) 20 mg tablet 2022-0 2-21 00:00: 00 03-06 00:00 :00 No [id number] 20mg Take 1 tablet by mouth in the morning. [facility] escitalopra m oxalate (LEXAPRO) 20 mg tablet 2022-0 2-21 00:00: 00 03-06 00:00 :00 No [id number] 20mg Take 1 tablet by mouth in the morning. [facility] tiZANidine 4 mg tablet 2023-0 2-20 00:00: 00 Yes [id number] 9100 4mg Take 1 tablet by mouth 3 (three) times daily as needed (muscle spasm). [facility] tiZ[facility]idine 4 mg tablet 3-0 2-20 00:00: 00 Yes [id number] 9100 4mg Take 1 tablet by mouth 3 (three) times daily as needed (muscle spasm). [facility] tiZANidine 4 mg tablet 3-0 2-20 00:00: 00 Yes [id number] 9100 4mg Take 1 tablet by mouth 3 (three) times daily as needed (muscle spasm). [facility] tiZANidine 4 mg tablet 3-0 2-20 00:00: 00 Yes [id number] 9100 4mg Take 1 tablet by mouth 3 (three) times daily as needed (muscle spasm). [facility] tiZANidine 4 mg tablet 3-0 2-20 00:00: 00 Yes [id number] 9100 4mg Take 1 tablet by mouth 3 (three) times daily as needed (muscle spasm). [facility] tiZANidine 4 mg tablet 3-0 2-20 00:00: 00 Yes [id number] 9100 4mg Take 1 tablet by mouth 3 (three) times daily as needed (muscle spasm). [facility] tiZANidine 4 mg tablet 3-0 2-20 00:00: 00 Yes [id number] 9100 4mg Take 1 tablet by mouth 3 (three) times daily as needed (muscle spasm). [facility] tiZANidine 4 mg tablet 3-0 2-20 00:00: 00 Yes [id number] 9100 4mg Take 1 tablet by mouth 3 (three) times daily as needed (muscle spasm). [facility] tiZANidine 4 mg tablet 2023-0 2-20 00:00: 00 Yes [id number] 9100 4mg Take 1 tablet by mouth 3 (three) times daily as needed (muscle spasm). [facility] tiZANidine 4 mg tablet 2023-0 2-20 00:00: 00 Yes [id number] 9100 4mg Take 1 tablet by mouth 3 (three) times daily as needed (muscle spasm). [facility] tiZANidine 4 mg tablet 2023-0 2-20 00:00: 00 Yes [id number] 9100 4mg Take 1 tablet by mouth 3 (three) times daily as needed (muscle spasm). [facility] tiZANidine 4 mg tablet 2023-0 2-20 00:00: 00 Yes [id number] 9100 4mg Take 1 tablet by mouth 3 (three) times daily as needed (muscle spasm). [facility] tiZANidine 4 mg tablet 3-0 2-20 00:00: 00 Yes [id number] 9100 4mg Take 1 tablet by mouth 3 (three) times daily as needed (muscle spasm). [facility] tiZANidine 4 mg tablet 2023-0 2-20 00:00: 00 Yes [id number] 9100 4mg Take 1 tablet by mouth 3 (three) times daily as needed (muscle spasm). [facility] tiZANidine 4 mg tablet 3-0 2-20 00:00: 00 Yes [id number] 9100 4mg Take 1 tablet by mouth 3 (three) times daily as needed (muscle spasm). [facility] tiZANidine 4 mg tablet 3-0 2-20 00:00: 00 Yes [id number] 9100 4mg Take 1 tablet by mouth 3 (three) times daily as needed (muscle spasm). [facility] tiZANidine 4 mg tablet 2023-0 2-20 00:00: 00 Yes [id number] 9100 4mg Take 1 tablet by mouth 3 (three) times daily as needed (muscle spasm). [facility] tiZANidine 4 mg tablet 2023-0 2-20 00:00: 00 Yes [id number] 9100 4mg Take 1 tablet by mouth 3 (three) times daily as needed (muscle spasm). [facility] tiZANidine 4 mg tablet 2023-0 2-20 00:00: 00 Yes [id number] 9100 4mg Take 1 tablet by mouth 3 (three) times daily as needed (muscle spasm). [facility] tiZANidine 4 mg tablet 2023-0 2-20 00:00: 00 Yes [id number] 9100 4mg Take 1 tablet by mouth 3 (three) times daily as needed (muscle spasm). [facility] tiZANidine 4 mg tablet 2023-0 2-20 00:00: 00 Yes [id number] 9100 4mg Take 1 tablet by mouth 3 (three) times daily as needed (muscle spasm). [facility] tiZANidine 4 mg tablet 2023-0 2-20 00:00: 00 Yes [id number] 9100 4mg Take 1 tablet by mouth 3 (three) times daily as needed (muscle spasm). [facility] tiZANidine 4 mg tablet 2023-0 2-20 00:00: 00 Yes [id number] 9100 4mg Take 1 tablet by mouth 3 (three) times daily as needed (muscle spasm). [facility] tiZANidine 4 mg tablet 2023-0 2-20 00:00: 00 Yes [id number] 9100 4mg Take 1 tablet by mouth 3 (three) times daily as needed (muscle spasm). [facility] tiZANidine 4 mg tablet 3-0 2-20 00:00: 00 Yes [id number] 9100 4mg Take 1 tablet by mouth 3 (three) times daily as needed (muscle spasm). [facility] tiZANidine 4 mg tablet 2023-0 2-20 00:00: 00 Yes [id number] 9100 4mg Take 1 tablet by mouth 3 (three) times daily as needed (muscle spasm). [facility] tiZANidine 4 mg tablet 2023-0 2-20 00:00: 00 Yes [id number] 9100 4mg Take 1 tablet by mouth 3 (three) times daily as needed (muscle spasm). [facility] tiZANidine 4 mg tablet 2023-0 2-20 00:00: 00 Yes [id number] 9100 4mg Take 1 tablet by mouth 3 (three) times daily as needed (muscle spasm). [facility] tiZANidine 4 mg tablet 2023-0 2-20 00:00: 00 Yes [id number] 9100 4mg Take 1 tablet by mouth 3 (three) times daily as needed (muscle spasm). [facility] tiZANidine 4 mg tablet 2023-0 2-20 00:00: 00 Yes [id number] 9100 4mg Take 1 tablet by mouth 3 (three) times daily as needed (muscle spasm). [facility] tiZANidine 4 mg tablet 2023-0 2-20 00:00: 00 Yes [id number] 9100 4mg Take 1 tablet by mouth 3 (three) times daily as needed (muscle spasm). [facility] tiZANidine 4 mg tablet 3-0 2-20 00:00: 00 Yes [id number] 9100 4mg Take 1 tablet by mouth 3 (three) times daily as needed (muscle spasm). [facility] tiZANidine 4 mg tablet 3-0 2-20 00:00: 00 Yes [id number] 9100 4mg Take 1 tablet by mouth 3 (three) times daily as needed (muscle spasm). [facility] tiZANidine 4 mg tablet 2023-0 2-20 00:00: 00 Yes [id number] 9100 4mg Take 1 tablet by mouth 3 (three) times daily as needed (muscle spasm). [facility] tiZANidine 4 mg tablet 3-0 2-20 00:00: 00 Yes [id number] 9100 4mg Take 1 tablet by mouth 3 (three) times daily as needed (muscle spasm). [facility] tiZANidine 4 mg tablet 2023-0 2-20 00:00: 00 Yes [id number] 9100 4mg Take 1 tablet by mouth 3 (three) times daily as needed (muscle spasm). [facility] tiZANidine 4 mg tablet 2023-0 2-20 00:00: 00 Yes [id number] 9100 4mg Take 1 tablet by mouth 3 (three) times daily as needed (muscle spasm). [facility] tiZANidine 4 mg tablet 2023-0 2-20 00:00: 00 Yes [id number] 9100 4mg Take 1 tablet by mouth 3 (three) times daily as needed (muscle spasm). [facility] tiZANidine 4 mg tablet 2023-0 2-20 00:00: 00 Yes [id number] 9100 4mg Take 1 tablet by mouth 3 (three) times daily as needed (muscle spasm). [facility] tiZANidine 4 mg tablet 2023-0 2-20 00:00: 00 Yes [id number] 9100 4mg Take 1 tablet by mouth 3 (three) times daily as needed (muscle spasm). [facility] tiZANidine 4 mg tablet 3-0 2-20 00:00: 00 Yes [id number] 9100 4mg Take 1 tablet by mouth 3 (three) times daily as needed (muscle spasm). [facility] tiZANidine 4 mg tablet 3-0 2-20 00:00: 00 Yes [id number] 9100 4mg Take 1 tablet by mouth 3 (three) times daily as needed (muscle spasm). [facility] tiZANidine 4 mg tablet 2023-0 2-20 00:00: 00 Yes [id number] 9100 4mg Take 1 tablet by mouth 3 (three) times daily as needed (muscle spasm). [facility] tiZANidine 4 mg tablet 3-0 2-20 00:00: 00 Yes [id number] 9100 4mg Take 1 tablet by mouth 3 (three) times daily as needed (muscle spasm). [facility] tiZANidine 4 mg tablet 2023-0 2-20 00:00: 00 Yes [id number] 9100 4mg Take 1 tablet by mouth 3 (three) times daily as needed (muscle spasm). [facility] tiZANidine 4 mg tablet 3-0 2-20 00:00: 00 Yes [id number] 9100 4mg Take 1 tablet by mouth 3 (three) times daily as needed (muscle spasm). [facility] tiZANidine 4 mg tablet 2023-0 2-20 00:00: 00 Yes [id number] 9100 4mg Take 1 tablet by mouth 3 (three) times daily as needed (muscle spasm). [facility] tiZANidine 4 mg tablet 2023-0 2-20 00:00: 00 Yes [id number] 9100 4mg Take 1 tablet by mouth 3 (three) times daily as needed (muscle spasm). [facility] tiZANidine 4 mg tablet 2023-0 2-20 00:00: 00 Yes [id number] 9100 4mg Take 1 tablet by mouth 3 (three) times daily as needed (muscle spasm). [facility] tiZANidine 4 mg tablet 3-0 2-20 00:00: 00 Yes [id number] 9100 4mg Take 1 tablet by mouth 3 (three) times daily as needed (muscle spasm). [facility] tiZANidine 4 mg tablet 3-0 2-20 00:00: 00 Yes [id number] 9100 4mg Take 1 tablet by mouth 3 (three) times daily as needed (muscle spasm). [facility] tiZANidine 4 mg tablet 3-0 2-20 00:00: 00 Yes [id number] 9100 4mg Take 1 tablet by mouth 3 (three) times daily as needed (muscle spasm). [facility] tiZANidine 4 mg tablet 3-0 2-20 00:00: 00 Yes [id number] 9100 4mg Take 1 tablet by mouth 3 (three) times daily as needed (muscle spasm). [facility] tiZANidine 4 mg tablet 2023-0 2-20 00:00: 00 Yes [id number] 9100 4mg Take 1 tablet by mouth 3 (three) times daily as needed (muscle spasm). [facility] tiZANidine 4 mg tablet 3-0 2-20 00:00: 00 Yes [id number] 9100 4mg Take 1 tablet by mouth 3 (three) times daily as needed (muscle spasm). [facility] tiZANidine 4 mg tablet 3-0 2-20 00:00: 00 Yes [id number] 9100 4mg Take 1 tablet by mouth 3 (three) times daily as needed (muscle spasm). [facility] tiZANidine 4 mg tablet 2023-0 2-20 00:00: 00 Yes [id number] 9100 4mg Take 1 tablet by mouth 3 (three) times daily as needed (muscle spasm). [facility] tiZANidine 4 mg tablet 3-0 2-20 00:00: 00 Yes [id number] 9100 4mg Take 1 tablet by mouth 3 (three) times daily as needed (muscle spasm). [facility] tiZANidine 4 mg tablet 3-0 2-20 00:00: 00 Yes [id number] 9100 4mg Take 1 tablet by mouth 3 (three) times daily as needed (muscle spasm). [facility] tiZANidine 4 mg tablet 3-0 2-20 00:00: 00 Yes [id number] 9100 4mg Take 1 tablet by mouth 3 (three) times daily as needed (muscle spasm). [facility] tiZANidine 4 mg tablet 2022-0 2-20 00:00: 00 Yes [id number] 9100 4mg Take 1 tablet by mouth 3 (three) times daily as needed (muscle spasm). [facility] tiZANidine 4 mg tablet 3-0 2-20 00:00: 00 Yes [id number] 9100 4mg Take 1 tablet by mouth 3 (three) times daily as needed (muscle spasm). [facility] tiZANidine 4 mg tablet 2022-0 2-20 00:00: 00 Yes [id number] 9100 4mg Take 1 tablet by mouth 3 (three) times daily as needed (muscle spasm). [facility] tiZANidine 4 mg tablet 3-0 2-20 00:00: 00 Yes [id number] 9100 4mg Take 1 tablet by mouth 3 (three) times daily as needed (muscle spasm). [facility] tiZANidine 4 mg tablet 3-0 2-20 00:00: 00 Yes [id number] 9100 4mg Take 1 tablet by mouth 3 (three) times daily as needed (muscle spasm). [facility] tiZANidine 4 mg tablet 3-0 2-20 00:00: 00 Yes [id number] 9100 4mg Take 1 tablet by mouth 3 (three) times daily as needed (muscle spasm). [facility] tiZANidine 4 mg tablet 2023-0 2-20 00:00: 00 Yes [id number] 9100 4mg Take 1 tablet by mouth 3 (three) times daily as needed (muscle spasm). [facility] tiZANidine 4 mg tablet 2023-0 2-20 00:00: 00 Yes [id number] 9100 4mg Take 1 tablet by mouth 3 (three) times daily as needed (muscle spasm). [facility] tiZANidine 4 mg tablet 3-0 2-20 00:00: 00 Yes [id number] 9100 4mg Take 1 tablet by mouth 3 (three) times daily as needed (muscle spasm). [facility] tiZANidine 4 mg tablet 3-0 2-20 00:00: 00 Yes [id number] 9100 4mg Take 1 tablet by mouth 3 (three) times daily as needed (muscle spasm). [facility] tiZANidine 4 mg tablet 3-0 2-20 00:00: 00 Yes [id number] 9100 4mg Take 1 tablet by mouth 3 (three) times daily as needed (muscle spasm). [facility] tiZANidine 4 mg tablet 3-0 2-20 00:00: 00 Yes [id number] 9100 4mg Take 1 tablet by mouth 3 (three) times daily as needed (muscle spasm). [facility] tiZANidine 4 mg tablet 2023-0 2-20 00:00: 00 Yes [id number] 9100 4mg Take 1 tablet by mouth 3 (three) times daily as needed (muscle spasm). [facility] tiZANidine 4 mg tablet 3-0 2-20 00:00: 00 Yes [id number] 9100 4mg Take 1 tablet by mouth 3 (three) times daily as needed (muscle spasm). [facility] tiZANidine 4 mg tablet 2023-0 2-20 00:00: 00 Yes [id number] 9100 4mg Take 1 tablet by mouth 3 (three) times daily as needed (muscle spasm). [facility] tiZANidine 4 mg tablet 2023-0 2-20 00:00: 00 Yes [id number] 9100 4mg Take 1 tablet by mouth 3 (three) times daily as needed (muscle spasm). [facility] tiZANidine 4 mg tablet 3-0 2-20 00:00: 00 Yes [id number] 9100 4mg Take 1 tablet by mouth 3 (three) times daily as needed (muscle spasm). [facility] tiZANidine 4 mg tablet 3-0 2-20 00:00: 00 Yes [id number] 9100 4mg Take 1 tablet by mouth 3 (three) times daily as needed (muscle spasm). [facility] tiZANidine 4 mg tablet 2022-0 2-20 00:00: 00 Yes [id number] 9100 4mg Take 1 tablet by mouth 3 (three) times daily as needed (muscle spasm). [facility] tiZANidine 4 mg tablet 2022-0 2-20 00:00: 00 01-31 00:00 :00 No [id number] 9100 4mg Take 1 tablet by mouth 3 (three) times daily as needed (muscle spasm). [facility] tiZANidine 4 mg tablet 2022-0 2-20 00:00: 00 01-31 00:00 :00 No [id number] 9100 4mg Take 1 tablet by mouth 3 (three) times daily as needed (muscle spasm). [facility] tiZANidine 4 mg tablet 2022-0 2-20 00:00: 00 01-31 00:00 :00 No [id number] 9100 4mg Take 1 tablet by mouth 3 (three) times daily as needed (muscle spasm). [facility] tiZANidine 4 mg tablet 2022-0 2-20 00:00: 00 01-31 00:00 :00 No [id number] 9100 4mg Take 1 tablet by mouth 3 (three) times daily as needed (muscle spasm). [facility] tiZANidine 4 mg tablet 3-0 2-20 00:00: 00 01-31 00:00 :00 No [id number] 9100 4mg Take 1 tablet by mouth 3 (three) times daily as needed (muscle spasm). [facility] tiZANidine 4 mg tablet 2022-0 2-20 00:00: 00 01-31 00:00 :00 No [id number] 9100 4mg Take 1 tablet by mouth 3 (three) times daily as needed (muscle spasm). [facility] tiZANidine 4 mg tablet 2022-0 2-20 00:00: 00 01-31 00:00 :00 No [id number] 9100 4mg Take 1 tablet by mouth 3 (three) times daily as needed (muscle spasm). [facility] tiZANidine 4 mg tablet 2022-0 2-20 00:00: 00 01-31 00:00 :00 No [id number] 9100 4mg Take 1 tablet by mouth 3 (three) times daily as needed (muscle spasm). [facility] busPIRone 5 mg tablet 2022-0 2-09 00:00: 00 Yes [id number] 5mg Take 1 tablet by mouth 2 (two) times daily as needed (anxiety). [facility] atorvastati n 20 mg tablet 2022-0 2-09 00:00: 00 Yes [id number] 20mg Take 1 tablet by mouth at bedtime. [facility] busPIRone 5 mg tablet 2022-0 2- 00:00: 00 Yes [id number] 5mg Take 1 tablet by mouth 2 (two) times daily as needed (anxiety). [facility] atorvastati n 20 mg tablet 2022-0 2-09 00:00: 00 Yes [id number] 20mg Take 1 tablet by mouth at bedtime. [facility] busPIRone 5 mg tablet 2022-0 2-09 00:00: 00 Yes [id number] 5mg Take 1 tablet by mouth 2 (two) times daily as needed (anxiety). [facility] atorvastati n 20 mg tablet 2022-0 2-09 00:00: 00 Yes [id number] 20mg Take 1 tablet by mouth at bedtime. [facility] busPIRone 5 mg tablet 2022-0 2-09 00:00: 00 Yes [id number] 5mg Take 1 tablet by mouth 2 (two) times daily as needed (anxiety). [facility] atorvastati n 20 mg tablet 2022-0 2- 00:00: 00 Yes [id number] 20mg Take 1 tablet by mouth at bedtime. [facility] busPIRone 5 mg tablet 2022-0 09-21 00:00: 00 Yes [id number] 5mg Take 1 tablet by mouth 2 (two) times daily as needed (anxiety). [facility] atorvastati n 20 mg tablet 2022-0 - 00:00: 00 Yes [id number] 20mg Take 1 tablet by mouth at bedtime. [facility] busPIRone 5 mg tablet 2022-0 09-21 00:00: 00 Yes [id number] 5mg Take 1 tablet by mouth 2 (two) times daily as needed (anxiety). [facility] atorvastati n 20 mg tablet 3-0 09-21 00:00: 00 Yes [id number] 20mg Take 1 tablet by mouth at bedtime. [facility] busPIRone 5 mg tablet 2022-0 09-21 00:00: 00 Yes [id number] 5mg Take 1 tablet by mouth 2 (two) times daily as needed (anxiety). [facility] atorvastati n 20 mg tablet 2022-0 09-21 00:00: 00 Yes [id number] 20mg Take 1 tablet by mouth at bedtime. [facility] busPIRone 5 mg tablet 2022-0 09-21 00:00: 00 Yes [id number] 5mg Take 1 tablet by mouth 2 (two) times daily as needed (anxiety). [facility] atorvastati n 20 mg tablet 2022-0 09-21 00:00: 00 Yes [id number] 20mg Take 1 tablet by mouth at bedtime. [facility] busPIRone 5 mg tablet 2022-0 09-21 00:00: 00 Yes [id number] 5mg Take 1 tablet by mouth 2 (two) times daily as needed (anxiety). [facility] atorvastati n 20 mg tablet 3-0 - 00:00: 00 Yes [id number] 20mg Take 1 tablet by mouth at bedtime. [facility] busPIRone 5 mg tablet 3-0 2- 00:00: 00 Yes [id number] 5mg Take 1 tablet by mouth 2 (two) times daily as needed (anxiety). [facility] atorvastati n 20 mg tablet 2022-0 2- 00:00: 00 Yes [id number] 20mg Take 1 tablet by mouth at bedtime. [facility] busPIRone 5 mg tablet 2022-0 09-21 00:00: 00 Yes [id number] 5mg Take 1 tablet by mouth 2 (two) times daily as needed (anxiety). [facility] atorvastati n 20 mg tablet 3-0 09-21 00:00: 00 Yes [id number] 20mg Take 1 tablet by mouth at bedtime. [facility] busPIRone 5 mg tablet 2022-0 09-21 00:00: 00 Yes [id number] 5mg Take 1 tablet by mouth 2 (two) times daily as needed (anxiety). [facility] atorvastati n 20 mg tablet 2022-0 09-21 00:00: 00 Yes [id number] 20mg Take 1 tablet by mouth at bedtime. [facility] busPIRone 5 mg tablet 2022-0 09-21 00:00: 00 Yes [id number] 5mg Take 1 tablet by mouth 2 (two) times daily as needed (anxiety). [facility] atorvastati n 20 mg tablet 3-0 09-21 00:00: 00 Yes [id number] 20mg Take 1 tablet by mouth at bedtime. [facility] busPIRone 5 mg tablet 3-0 09-21 00:00: 00 Yes [id number] 5mg Take 1 tablet by mouth 2 (two) times daily as needed (anxiety). [facility] atorvastati n 20 mg tablet 3-0 09-21 00:00: 00 Yes [id number] 20mg Take 1 tablet by mouth at bedtime. [facility] busPIRone 5 mg tablet 3-0 09-21 00:00: 00 Yes [id number] 5mg Take 1 tablet by mouth 2 (two) times daily as needed (anxiety). [facility] atorvastati n 20 mg tablet 3-0 2- 00:00: 00 Yes [id number] 20mg Take 1 tablet by mouth at bedtime. [facility] busPIRone 5 mg tablet 2022-0 2- 00:00: 00 Yes [id number] 5mg Take 1 tablet by mouth 2 (two) times daily as needed (anxiety). [facility] atorvastati n 20 mg tablet 3-0 2- 00:00: 00 Yes [id number] 20mg Take 1 tablet by mouth at bedtime. [facility] busPIRone 5 mg tablet 2022-0 09-21 00:00: 00 Yes [id number] 5mg Take 1 tablet by mouth 2 (two) times daily as needed (anxiety). [facility] atorvastati n 20 mg tablet 3-0 2- 00:00: 00 Yes [id number] 20mg Take 1 tablet by mouth at bedtime. [facility] busPIRone 5 mg tablet 3-0 09-21 00:00: 00 Yes [id number] 5mg Take 1 tablet by mouth 2 (two) times daily as needed (anxiety). [facility] atorvastati n 20 mg tablet 2022-0 09-21 00:00: 00 Yes [id number] 20mg Take 1 tablet by mouth at bedtime. [facility] busPIRone 5 mg tablet 3-0 2 00:00: 00 Yes [id number] 5mg Take 1 tablet by mouth 2 (two) times daily as needed (anxiety). [facility] atorvastati n 20 mg tablet 3-0 2- 00:00: 00 Yes [id number] 20mg Take 1 tablet by mouth at bedtime. [facility] busPIRone 5 mg tablet 3-0 2 00:00: 00 Yes [id number] 5mg Take 1 tablet by mouth 2 (two) times daily as needed (anxiety). [facility] atorvastati n 20 mg tablet 3-0 2- 00:00: 00 Yes [id number] 20mg Take 1 tablet by mouth at bedtime. [facility] busPIRone 5 mg tablet 2022-0 2 00:00: 00 Yes [id number] 5mg Take 1 tablet by mouth 2 (two) times daily as needed (anxiety). [facility] atorvastati n 20 mg tablet 2022-0 2- 00:00: 00 Yes [id number] 20mg Take 1 tablet by mouth at bedtime. [facility] busPIRone 5 mg tablet 3-0 09-21 00:00: 00 Yes [id number] 5mg Take 1 tablet by mouth 2 (two) times daily as needed (anxiety). [facility] atorvastati n 20 mg tablet 2022-0 09-21 00:00: 00 Yes [id number] 20mg Take 1 tablet by mouth at bedtime. [facility] busPIRone 5 mg tablet 2022-0 09-21 00:00: 00 Yes [id number] 5mg Take 1 tablet by mouth 2 (two) times daily as needed (anxiety). [facility] atorvastati n 20 mg tablet 2022-0 09-21 00:00: 00 Yes [id number] 20mg Take 1 tablet by mouth at bedtime. [facility] busPIRone 5 mg tablet 2022-0 09-21 00:00: 00 Yes [id number] 5mg Take 1 tablet by mouth 2 (two) times daily as needed (anxiety). [facility] atorvastati n 20 mg tablet 2022-0 2- 00:00: 00 Yes [id number] 20mg Take 1 tablet by mouth at bedtime. [facility] busPIRone 5 mg tablet 3-0 09-21 00:00: 00 Yes [id number] 5mg Take 1 tablet by mouth 2 (two) times daily as needed (anxiety). [facility] atorvastati n 20 mg tablet 2022-0 2- 00:00: 00 Yes [id number] 20mg Take 1 tablet by mouth at bedtime. [facility] busPIRone 5 mg tablet 2023-0 2-09 00:00: 00 Yes [id number] 5mg Take 1 tablet by mouth 2 (two) times daily as needed (anxiety). [facility] atorvastati n 20 mg tablet 2022-0 2-09 00:00: 00 Yes [id number] 20mg Take 1 tablet by mouth at bedtime. [facility] busPIRone 5 mg tablet 2022-0 2- 00:00: 00 Yes [id number] 5mg Take 1 tablet by mouth 2 (two) times daily as needed (anxiety). [facility] atorvastati n 20 mg tablet 2022-0 2- 00:00: 00 Yes [id number] 20mg Take 1 tablet by mouth at bedtime. [facility] busPIRone 5 mg tablet 2022-0 09-21 00:00: 00 Yes [id number] 5mg Take 1 tablet by mouth 2 (two) times daily as needed (anxiety). [facility] atorvastati n 20 mg tablet 2022-0 2- 00:00: 00 Yes [id number] 20mg Take 1 tablet by mouth at bedtime. [facility] busPIRone 5 mg tablet 2022-0 09-21 00:00: 00 Yes [id number] 5mg Take 1 tablet by mouth 2 (two) times daily as needed (anxiety). [facility] atorvastati n 20 mg tablet 2022-0 2 00:00: 00 Yes [id number] 20mg Take 1 tablet by mouth at bedtime. [facility] busPIRone 5 mg tablet 2022-0 2- 00:00: 00 Yes [id number] 5mg Take 1 tablet by mouth 2 (two) times daily as needed (anxiety). [facility] atorvastati n 20 mg tablet 3-0 2- 00:00: 00 Yes [id number] 20mg Take 1 tablet by mouth at bedtime. [facility] busPIRone 5 mg tablet 3-0 2-09 00:00: 00 Yes [id number] 5mg Take 1 tablet by mouth 2 (two) times daily as needed (anxiety). [facility] atorvastati n 20 mg tablet 2022-0 2 00:00: 00 Yes [id number] 20mg Take 1 tablet by mouth at bedtime. [facility] atorvastati n 20 mg tablet 2022-0 09-21 00:00: 00 Yes [id number] 20mg Take 1 tablet by mouth at bedtime. [facility] atorvastati n 20 mg tablet 2022-0 2 00:00: 00 Yes [id number] 20mg Take 1 tablet by mouth at bedtime. [facility] atorvastati n 20 mg tablet 2022-0 09-21 00:00: 00 Yes [id number] 20mg Take 1 tablet by mouth at bedtime. [facility] atorvastati n 20 mg tablet 2022-0 09-21 00:00: 00 Yes [id number] 20mg Take 1 tablet by mouth at bedtime. [facility] atorvastati n 20 mg tablet 2022-0 09-21 00:00: 00 Yes [id number] 20mg Take 1 tablet by mouth at bedtime. [facility] atorvastati n 20 mg tablet 2022-0 09-21 00:00: 00 Yes [id number] 20mg Take 1 tablet by mouth at bedtime. [facility] atorvastati n 20 mg tablet 2022-0 09-21 00:00: 00 Yes [id number] 20mg Take 1 tablet by mouth at bedtime. [facility] atorvastati n 20 mg tablet 2022-0 09-21 00:00: 00 Yes [id number] 20mg Take 1 tablet by mouth at bedtime. [facility] atorvastati n 20 mg tablet 2022-0 09-21 00:00: 00 Yes [id number] 20mg Take 1 tablet by mouth at bedtime. [facility] atorvastati n 20 mg tablet 2022-0 09-21 00:00: 00 Yes [id number] 20mg Take 1 tablet by mouth at bedtime. [facility] atorvastati n 20 mg tablet 3-0 2- 00:00: 00 Yes [id number] 20mg Take 1 tablet by mouth at bedtime. [facility] atorvastati n 20 mg tablet 2022-0 09-21 00:00: 00 Yes [id number] 20mg Take 1 tablet by mouth at bedtime. [facility] atorvastati n 20 mg tablet 2022-0 09-21 00:00: 00 Yes [id number] 20mg Take 1 tablet by mouth at bedtime. [facility] atorvastati n 20 mg tablet 2022-0 2 00:00: 00 Yes [id number] 20mg Take 1 tablet by mouth at bedtime. [facility] atorvastati n 20 mg tablet 2022-0 09-21 00:00: 00 Yes [id number] 20mg Take 1 tablet by mouth at bedtime. [facility] atorvastati n 20 mg tablet 2022-0 09-21 00:00: 00 Yes [id number] 20mg Take 1 tablet by mouth at bedtime. [facility] atorvastati n 20 mg tablet 2022-0 09-21 00:00: 00 Yes [id number] 20mg Take 1 tablet by mouth at bedtime. [facility] atorvastati n 20 mg tablet 2022-0 09-21 00:00: 00 Yes [id number] 20mg Take 1 tablet by mouth at bedtime. [facility] atorvastati n 20 mg tablet 2022-0 09-21 00:00: 00 Yes [id number] 20mg Take 1 tablet by mouth at bedtime. [facility] atorvastati n 20 mg tablet 2022-0 09-21 00:00: 00 Yes [id number] 20mg Take 1 tablet by mouth at bedtime. [facility] atorvastati n 20 mg tablet 2022-0 09-21 00:00: 00 Yes [id number] 20mg Take 1 tablet by mouth at bedtime. [facility] atorvastati n 20 mg tablet 2022-0 09-21 00:00: 00 Yes [id number] 20mg Take 1 tablet by mouth at bedtime. [facility] atorvastati n 20 mg tablet 2022-0 2- 00:00: 00 Yes [id number] 20mg Take 1 tablet by mouth at bedtime. [facility] atorvastati n 20 mg tablet 2022-0 2- 00:00: 00 Yes [id number] 20mg Take 1 tablet by mouth at bedtime. [facility] atorvastati n 20 mg tablet 2022-0 2 00:00: 00 Yes [id number] 20mg Take 1 tablet by mouth at bedtime. [facility] atorvastati n 20 mg tablet 2022-0 2 00:00: 00 Yes [id number] 20mg Take 1 tablet by mouth at bedtime. [facility] atorvastati n 20 mg tablet 2022-0 09-21 00:00: 00 Yes [id number] 20mg Take 1 tablet by mouth at bedtime. [facility] atorvastati n 20 mg tablet 2022-0 09-21 00:00: 00 Yes [id number] 20mg Take 1 tablet by mouth at bedtime. [facility] atorvastati n 20 mg tablet 2022-0 09-21 00:00: 00 Yes [id number] 20mg Take 1 tablet by mouth at bedtime. [facility] atorvastati n 20 mg tablet 2022-0 09-21 00:00: 00 Yes [id number] 20mg Take 1 tablet by mouth at bedtime. [facility] atorvastati n 20 mg tablet 2022-0 2 00:00: 00 Yes [id number] 20mg Take 1 tablet by mouth at bedtime. [facility] atorvastati n 20 mg tablet 2022-0 2 00:00: 00 Yes [id number] 20mg Take 1 tablet by mouth at bedtime. [facility] atorvastati n 20 mg tablet 2022-0 2 00:00: 00 Yes [id number] 20mg Take 1 tablet by mouth at bedtime. [facility] atorvastati n 20 mg tablet 3-0 2 00:00: 00 Yes [id number] 20mg Take 1 tablet by mouth at bedtime. [facility] atorvastati n 20 mg tablet 2022-0 2- 00:00: 00 Yes [id number] 20mg Take 1 tablet by mouth at bedtime. [facility] atorvastati n 20 mg tablet 2022-0 2 00:00: 00 Yes [id number] 20mg Take 1 tablet by mouth at bedtime. [facility] atorvastati n 20 mg tablet 2022-0 2 00:00: 00 Yes [id number] 20mg Take 1 tablet by mouth at bedtime. [facility] atorvastati n 20 mg tablet 2022-0 09-21 00:00: 00 Yes [id number] 20mg Take 1 tablet by mouth at bedtime. [facility] atorvastati n 20 mg tablet 2022-0 09-21 00:00: 00 Yes [id number] 20mg Take 1 tablet by mouth at bedtime. [facility] atorvastati n 20 mg tablet 2022-0 09-21 00:00: 00 Yes [id number] 20mg Take 1 tablet by mouth at bedtime. [facility] atorvastati n 20 mg tablet 2022-0 09-21 00:00: 00 Yes [id number] 20mg Take 1 tablet by mouth at bedtime. [facility] atorvastati n 20 mg tablet 2022-0 09-21 00:00: 00 Yes [id number] 20mg Take 1 tablet by mouth at bedtime. [facility] atorvastati n 20 mg tablet 2022-0 2 00:00: 00 Yes [id number] 20mg Take 1 tablet by mouth at bedtime. [facility] atorvastati n 20 mg tablet 3-0 09-21 00:00: 00 Yes [id number] 20mg Take 1 tablet by mouth at bedtime. [facility] atorvastati n 20 mg tablet 3-0 09-21 00:00: 00 Yes [id number] 20mg Take 1 tablet by mouth at bedtime. [facility] atorvastati n 20 mg tablet 3-0 2 00:00: 00 Yes [id number] 20mg Take 1 tablet by mouth at bedtime. [facility] atorvastati n 20 mg tablet 2022-0 2- 00:00: 00 Yes [id number] 20mg Take 1 tablet by mouth at bedtime. [facility] atorvastati n 20 mg tablet 2022-0 2 00:00: 00 Yes [id number] 20mg Take 1 tablet by mouth at bedtime. [facility] atorvastati n 20 mg tablet 2022-0 2 00:00: 00 Yes [id number] 20mg Take 1 tablet by mouth at bedtime. [facility] atorvastati n 20 mg tablet 2022-0 09-21 00:00: 00 Yes [id number] 20mg Take 1 tablet by mouth at bedtime. [facility] atorvastati n 20 mg tablet 2022-0 09-21 00:00: 00 Yes [id number] 20mg Take 1 tablet by mouth at bedtime. [facility] atorvastati n 20 mg tablet 2022-0 09-21 00:00: 00 Yes [id number] 20mg Take 1 tablet by mouth at bedtime. [facility] atorvastati n 20 mg tablet 2022-0 09-21 00:00: 00 Yes [id number] 20mg Take 1 tablet by mouth at bedtime. [facility] atorvastati [facility] 20 mg tablet 2022-0 09-21 00:00: 00 Yes [id number] 20mg Take 1 tablet by mouth at bedtime. [facility] atorvastati n 20 mg tablet 2022-0 09-21 00:00: 00 Yes [id number] 20mg Take 1 tablet by mouth at bedtime. [facility] atorvastati n 20 mg tablet 2022-0 2 00:00: 00 Yes [id number] 20mg Take 1 tablet by mouth at bedtime. [facility] atorvastati n 20 mg tablet 3-0 2 00:00: 00 Yes [id number] 20mg Take 1 tablet by mouth at bedtime. [facility] atorvastati n 20 mg tablet 2022-0 2-09 00:00: 00 Yes [id number] 20mg Take 1 tablet by mouth at bedtime. [facility] atorvastati n 20 mg tablet 2022-0 2-09 00:00: 00 Yes [id number] 20mg Take 1 tablet by mouth at bedtime. [facility] atorvastati n 20 mg tablet 2022-0 2- 00:00: 00 Yes [id number] 20mg Take 1 tablet by mouth at bedtime. [facility] atorvastati n 20 mg tablet 2022-0 2- 00:00: 00 Yes [id number] 20mg Take 1 tablet by mouth at bedtime. [facility] atorvastati n 20 mg tablet 2022-0 2- 00:00: 00 Yes [id number] 20mg Take 1 tablet by mouth at bedtime. [facility] atorvastati n 20 mg tablet 2022-0 2- 00:00: 00 03-06 00:00 :00 No [id number] 20mg Take 1 tablet by mouth at bedtime. [facility] atorvastati n 20 mg tablet 2022-0 2 00:00: 00 03-06 00:00 :00 No [id number] 20mg Take 1 tablet by mouth at bedtime. [facility] atorvastati n 20 mg tablet 2022-0 2-09 00:00: 00 03-06 00:00 :00 No [id number] 20mg Take 1 tablet by mouth at bedtime. [facility] atorvastati n 20 mg tablet 2022-0 2- 00:00: 00 03-06 00:00 :00 No [id number] 20mg Take 1 tablet by mouth at bedtime. [facility] atorvastati n 20 mg tablet 2022-0 2-09 00:00: 00 03-06 00:00 :00 No [id number] 20mg Take 1 tablet by mouth at bedtime. [facility] atorvastati n 20 mg tablet 2022-0 2-09 00:00: 00 3- 07-25 00:00 :00 No [id number] 20mg Take 1 tablet by mouth at bedtime. [facility] atorvastati n 20 mg tablet 09-21 00:00: 00 03-06 00:00 :00 No [id number] 20mg Take 1 tablet by mouth at bedtime. [facility] busPIRone 5 mg tablet 09-21 00:00: 00 11-10 00:00 :00 No [id number] 5mg Take 1 tablet by mouth 2 (two) times daily as needed (anxiety). [facility] busPIRone 5 mg tablet 09-21 00:00: 00 11-10 00:00 :00 No [id number] 5mg Take 1 tablet by mouth 2 (two) times daily as needed (anxiety). [facility] busPIRone 5 mg tablet 09-21 00:00: 11-10 00:00 :00 No [id number] 5mg Take 1 tablet by mouth 2 (two) times daily as needed (anxiety). [facility] bupivacaine (preserv free) (SENSORCAIN E MPF) 0.25 % (2.5 mg/mL) injection 4 mL 09-15 17:15: 00 09-15 17:19 :00 No [id number] 4mL [facility] lidocaine 1% (PF) (XYLOCAINE) injection 14 mL 09-15 17:15: 09-15 17:06 :00 No [id number] 14mL [facility] triamcinolo ne acetonide (KENALOG) injection 80 mg 09-15 17:15: 09-15 17:12 :00 No [id number] 80mg [facility] triamcinolo ne acetonide (KENALOG) injection 80 mg 09-15 17:15: 00 09-15 17:12 :00 No [id number] 80mg 80 mg, Infiltrati on, ONCE, 1 dose, On Sun09/15/22 at 1115, Routine [facility] lidocaine 1% (PF) (XYLOCAINE) injection 14 mL 09-15 17:15: 00 09-15 17:06 :00 No [id number] 14mL 14 mL, Infiltrati on, ONCE, 1 dose, On Sun09/15/22 at 1115, Routine [facility] bupivacaine (preserv free) (SENSORCAIN E MPF) 0.25 % (2.5 mg/mL) injection 4 mL 09-15 17:15: 00 09-15 17:19 :00 No [id number] 4mL 4 mL, Infiltrati on, ONCE, 1 dose, On Sun09/15/22 at 1115, Routine [facility] bupivacaine (preserv free) (SENSORCAIN E MPF) 0.25 % (2.5 mg/mL) injection 4 mL 09-15 17:15: 00 09-15 17:19 :00 No [id number] 4mL [facility] lidocaine 1% (PF) (XYLOCAINE) injection 14 mL 09-15 17:15: 00 09-15 17:06 :00 No [id number] 14mL [facility] triamcinolo ne acetonide (KENALOG) injection 80 mg 2 17:15: 00 09-15 17:12 :00 No [id number] 80mg [facility] triamcinolo ne acetonide (KENALOG) injection 80 mg 2 17:15: 00 09-15 17:12 :00 No [id number] 80mg 80 mg, Infiltrati on, ONCE, 1 dose, On Sun09/15/22 at 1115, Routine [facility] lidocaine 1% (PF) (XYLOCAINE) injection 14 mL 03 17:15: 00 09-15 17:06 :00 No [id number] 14mL 14 mL, Infiltrati on, ONCE, 1 dose, On Sun09/15/22 at 1115, Routine [facility] bupivacaine (preserv free) (SENSORCAIN E MPF) 0.25 % (2.5 mg/mL) injection 4 mL - 17:15: 00 09-15 17:19 :00 No [id number] 4mL 4 mL, Infiltrati on, ONCE, 1 dose, On Sun09/15/22 at 1115, Routine [facility] lactated ringers IV infusion 500 mL - 16:45: 00 09-15 17:06 :00 No [id number] 500mL [facility] lactated ringers IV infusion 500 mL 0 09-15 16:45: 00 09-15 17:06 :00 No [id number] 500mL at 20 mL/hr, 500 mL, IV Infusion, ONCE, 1 dose, On Sun09/15/22 at 1045, Routine [facility] lactated ringers IV infusion 500 mL 0 - 16:45: 00 09-15 17:06 :00 No [id number] 500mL [facility] s [facility] lactated ringers IV infusion 500 mL 0 03 16:45: 00 09-15 17:06 :00 No [id number] 500mL at 20 mL/hr, 500 mL, IV Infusion, ONCE, 1 dose, On Sun09/15/22 at 1045, Routine [facility] meloxicam 15 mg tablet 0 2-03 00:00: 00 Yes 15mg Take 1 tablet by mouth in the morning. [facility] meloxicam 15 mg tablet 0 2-03 00:00: 00 Yes 15mg Take 1 tablet by mouth in the morning. [facility] meloxicam 15 mg tablet 0 2-03 00:00: 00 Yes [id number] 15mg Take 1 tablet by mouth in the morning. [facility] meloxicam 15 mg tablet 2022-0 2-03 00:00: 00 Yes [id number] 15mg Take 1 tablet by mouth in the morning. [facility] meloxicam 15 mg tablet 2022-0 2-03 00:00: 00 Yes [id number] 15mg Take 1 tablet by mouth in the morning. [facility] meloxicam 15 mg tablet 2022-0 2- 00:00: 00 Yes [id number] 15mg Take 1 tablet by mouth in the morning. [facility] meloxicam 15 mg tablet 2022-0 2- 00:00: 00 Yes [id number] 15mg Take 1 tablet by mouth in the morning. [facility] meloxicam 15 mg tablet 2022-0 2- 00:00: 00 Yes [id number] 15mg Take 1 tablet by mouth in the morning. [facility] meloxicam 15 mg tablet 2022-0 2- 00:00: 00 Yes [id number] 15mg Take 1 tablet by mouth in the morning. [facility] meloxicam 15 mg tablet 2022-0 2- 00:00: 00 Yes [id number] 15mg Take 1 tablet by mouth in the morning. [facility] meloxicam 15 mg tablet 2022-0 2- 00:00: 00 Yes [id number] 15mg Take 1 tablet by mouth in the morning. [facility] meloxicam 15 mg tablet 2022-0 2- 00:00: 00 Yes [id number] 15mg Take 1 tablet by mouth in the morning. [facility] meloxicam 15 mg tablet 2022-0 2- 00:00: 00 Yes [id number] 15mg Take 1 tablet by mouth in the morning. [facility] meloxicam 15 mg tablet 2022-0 2- 00:00: 00 Yes [id number] 15mg Take 1 tablet by mouth in the morning. [facility] meloxicam 15 mg tablet 3-0 2- 00:00: 00 Yes [id number] 15mg Take 1 tablet by mouth in the morning. [facility] meloxicam 15 mg tablet 2022-0 2- 00:00: 00 Yes [id number] 15mg Take 1 tablet by mouth in the morning. [facility] meloxicam 15 mg tablet 3-0 2-03 00:00: 00 Yes [id number] 15mg Take 1 tablet by mouth in the morning. [facility] meloxicam 15 mg tablet 3-0 2-03 00:00: 00 Yes [id number] 15mg Take 1 tablet by mouth in the morning. [facility] meloxicam 15 mg tablet 2022-0 2-03 00:00: 00 Yes [id number] 15mg Take 1 tablet by mouth in the morning. [facility] meloxicam 15 mg tablet 3-0 2-03 00:00: 00 Yes [id number] 15mg Take 1 tablet by mouth in the morning. [facility] meloxicam 15 mg tablet 3-0 2- 00:00: 00 Yes [id number] 15mg Take 1 tablet by mouth in the morning. [facility] meloxicam 15 mg tablet 2022-0 2- 00:00: 00 Yes [id number] 15mg Take 1 tablet by mouth in the morning. [facility] meloxicam 15 mg tablet 2022-0 2-03 00:00: 00 Yes [id number] 15mg Take 1 tablet by mouth in the morning. [facility] meloxicam 15 mg tablet 2022-0 2-03 00:00: 00 Yes [id number] 15mg Take 1 tablet by mouth in the morning. [facility] meloxicam 15 mg tablet 2022-0 2-03 00:00: 00 Yes [id number] 15mg Take 1 tablet by mouth in the morning. [facility] meloxicam 15 mg tablet 3-0 2-03 00:00: 00 Yes [id number] 15mg Take 1 tablet by mouth in the morning. [facility] meloxicam 15 mg tablet 3-0 2-03 00:00: 00 Yes [id number] 15mg Take 1 tablet by mouth in the morning. [facility] meloxicam 15 mg tablet 3-0 2-03 00:00: 00 Yes [id number] 15mg Take 1 tablet by mouth in the morning. [facility] meloxicam 15 mg tablet 3-0 2-03 00:00: 00 Yes [id number] 15mg Take 1 tablet by mouth in the morning. [facility] mel[facility]am 15 mg tablet 3-0 2-03 00:00: 00 Yes [id number] 15mg Take 1 tablet by mouth in the morning. [facility] meloxicam 15 mg tablet 3-0 2- 00:00: 00 Yes [id number] 15mg Take 1 tablet by mouth in the morning. [facility] meloxicam 15 mg tablet 3-0 2- 00:00: 00 Yes [id number] 15mg Take 1 tablet by mouth in the morning. [facility] meloxicam 15 mg tablet 3-0 2-03 00:00: 00 Yes [id number] 15mg Take 1 tablet by mouth in the morning. [facility] meloxicam 15 mg tablet 3-0 2- 00:00: 00 Yes [id number] 15mg Take 1 tablet by mouth in the morning. [facility] meloxicam 15 mg tablet 3-0 2- 00:00: 00 Yes [id number] 15mg Take 1 tablet by mouth in the morning. [facility] meloxicam 15 mg tablet 3-0 2- 00:00: 00 Yes [id number] 15mg Take 1 tablet by mouth in the morning. [facility] meloxicam 15 mg tablet 3-0 2-03 00:00: 00 Yes [id number] 15mg Take 1 tablet by mouth in the morning. [facility] meloxicam 15 mg tablet 3-0 2-03 00:00: 00 Yes [id number] 15mg Take 1 tablet by mouth in the morning. [facility] meloxicam 15 mg tablet 3-0 2-03 00:00: 00 Yes [id number] 15mg Take 1 tablet by mouth in the morning. [facility] meloxicam 15 mg tablet 3-0 2-03 00:00: 00 Yes [id number] 15mg Take 1 tablet by mouth in the morning. [facility] meloxicam 15 mg tablet 3-0 2-03 00:00: 00 Yes [id number] 15mg Take 1 tablet by mouth in the morning. [facility] meloxicam 15 mg tablet 2022-0 2- 00:00: 00 Yes [id number] 15mg Take 1 tablet by mouth in the morning. [facility] meloxicam 15 mg tablet 2022-0 2- 00:00: 00 Yes [id number] 15mg Take 1 tablet by mouth in the morning. [facility] meloxicam 15 mg tablet 2022-0 2- 00:00: 00 Yes [id number] 15mg Take 1 tablet by mouth in the morning. [facility] meloxicam 15 mg tablet 2022-0 2- 00:00: 00 Yes [id number] 15mg Take 1 tablet by mouth in the morning. [facility] meloxicam 15 mg tablet 2022-0 2- 00:00: 00 Yes [id number] 15mg Take 1 tablet by mouth in the morning. [facility] meloxicam 15 mg tablet 2022-0 2- 00:00: 00 Yes [id number] 15mg Take 1 tablet by mouth in the morning. [facility] meloxicam 15 mg tablet 2022-0 2- 00:00: 00 Yes [id number] 15mg Take 1 tablet by mouth in the morning. [facility] meloxicam 15 mg tablet 2022-0 2- 00:00: 00 Yes [id number] 15mg Take 1 tablet by mouth in the morning. [facility] meloxicam 15 mg tablet 2022-0 2- 00:00: 00 Yes [id number] 15mg Take 1 tablet by mouth in the morning. [facility] meloxicam 15 mg tablet 2022-0 2- 00:00: 00 Yes [id number] 15mg Take 1 tablet by mouth in the morning. [facility] meloxicam 15 mg tablet 2022-0 2- 00:00: 00 Yes [id number] 15mg Take 1 tablet by mouth in the morning. [facility] meloxicam 15 mg tablet 3-0 2- 00:00: 00 Yes [id number] 15mg Take 1 tablet by mouth in the morning. [facility] meloxicam 15 mg tablet 2- 00:00: 00 Yes [id number] 15mg Take 1 tablet by mouth in the morning. [facility] meloxicam 15 mg tablet 2- 00:00: 00 Yes [id number] 15mg Take 1 tablet by mouth in the morning. [facility] meloxicam 15 mg tablet 2- 00:00: 00 Yes [id number] 15mg Take 1 tablet by mouth in the morning. [facility] meloxicam 15 mg tablet 2 00:00: 00 Yes [id number] 15mg Take 1 tablet by mouth in the morning. [facility] meloxicam 15 mg tablet 09-15 00:00: 00 10-26 00:00 :00 No [id number] 15mg Take 1 tablet by mouth in the morning. [facility] meloxicam 15 mg tablet 09-15 00:00: 00 10-26 00:00 :00 No [id number] 15mg Take 1 tablet by mouth in the morning. [facility] meloxicam 15 mg tablet 09-15 00:00: 00 10-26 00:00 :00 No [id number] 15mg Take 1 tablet by mouth in the morning. [facility] meloxicam 15 mg tablet 09-15 00:00: 00 10-26 00:00 :00 No [id number] 15mg Take 1 tablet by mouth in the morning. [facility] semaglutide (OZEMPIC) 1 mg/dose (4 mg/3 mL) PnIj 2 00:00: 00 Yes [id number] 1mg inject 1 mg under the skin weekly. [facility] pioglitazon e 30 mg tablet 2 00:00: 00 Yes [id number] 30mg Take 1 tablet by mouth in the morning. [facility] metFORMIN 1,000 mg tablet 2- 00:00: 00 Yes [id number] 1000mg Take 1 tablet by mouth in the morning and 1 tablet in the evening. Take with meals. [facility] semaglutide (OZEMPIC) 1 mg/dose (4 mg/3 mL) PnIj 2- 00:00: 00 Yes [id number] 1mg inject 1 mg under the skin weekly. [facility] pioglitazon e 30 mg tablet 2- 00:00: 00 Yes [id number] 30mg Take 1 tablet by mouth in the morning. [facility] metFORMIN 1,000 mg tablet 2 00:00: 00 Yes [id number] 1000mg Take 1 tablet by mouth in the morning and 1 tablet in the evening. Take with meals. [facility] semaglutide (OZEMPIC) 1 mg/dose (4 mg/3 mL) PnIj 2- 00:00: 00 Yes [id number] 1mg inject 1 mg under the skin weekly. [facility] pioglitazon e 30 mg tablet 2- 00:00: 00 Yes [id number] 30mg Take 1 tablet by mouth in the morning. [facility] metFORMIN 1,000 mg tablet 2 00:00: 00 Yes [id number] 1000mg Take 1 tablet by mouth in the morning and 1 tablet in the evening. Take with meals. [facility] semaglutide (OZEMPIC) 1 mg/dose (4 mg/3 mL) PnIj 0 2- 00:00: 00 Yes [id number] 1mg inject 1 mg under the skin weekly. [facility] pioglitazon e 30 mg tablet 2- 00:00: 00 Yes [id number] 30mg Take 1 tablet by mouth in the morning. [facility] metFORMIN 1,000 mg tablet 2- 00:00: 00 Yes [id number] 1000mg Take 1 tablet by mouth in the morning and 1 tablet in the evening. Take with meals. [facility] semaglutide (OZEMPIC) 1 mg/dose (4 mg/3 mL) PnIj 0 2- 00:00: 00 Yes [id number] 1mg inject 1 mg under the skin weekly. [facility] pioglitazon e 30 mg tablet 0 2- 00:00: 00 Yes [id number] 30mg Take 1 tablet by mouth in the morning. [facility] metFORMIN 1,000 mg tablet 2- 00:00: 00 Yes [id number] 1000mg Take 1 tablet by mouth in the morning and 1 tablet in the evening. Take with meals. [facility] semaglutide (OZEMPIC) 1 mg/dose (4 mg/3 mL) PnIj 0 2- 00:00: 00 Yes [id number] 1mg inject 1 mg under the skin weekly. [facility] pioglitazon e 30 mg tablet 09-13 00:00: 00 Yes [id number] 30mg Take 1 tablet by mouth in the morning. [facility] metFORMIN 1,000 mg tablet 09-13 00:00: 00 Yes [id number] 1000mg Take 1 tablet by mouth in the morning and 1 tablet in the evening. Take with meals. [facility] semaglutide (OZEMPIC) 1 mg/dose (4 mg/3 mL) PnIj 0 2- 00:00: 00 Yes [id number] 1mg inject 1 mg under the skin weekly. [facility] pioglitazon e 30 mg tablet 2- 00:00: 00 Yes [id number] 30mg Take 1 tablet by mouth in the morning. [facility] metFORMIN 1,000 mg tablet 2- 00:00: 00 Yes [id number] 1000mg Take 1 tablet by mouth in the morning and 1 tablet in the evening. Take with meals. [facility] semaglutide (OZEMPIC) 1 mg/dose (4 mg/3 mL) PnIj 0 2- 00:00: 00 Yes [id number] 1mg inject 1 mg under the skin weekly. [facility] pioglitazon e 30 mg tablet 2- 00:00: 00 Yes [id number] 30mg Take 1 tablet by mouth in the morning. [facility] metFORMIN 1,000 mg tablet 2 00:00: 00 Yes [id number] 1000mg Take 1 tablet by mouth in the morning and 1 tablet in the evening. Take with meals. [facility] semaglutide (OZEMPIC) 1 mg/dose (4 mg/3 mL) PnIj 2- 00:00: 00 Yes [id number] 1mg inject 1 mg under the skin weekly. [facility] pioglitazon e 30 mg tablet 09-13 00:00: 00 Yes [id number] 30mg Take 1 tablet by mouth in the morning. [facility] metFORMIN 1,000 mg tablet 09-13 00:00: 00 Yes [id number] 1000mg Take 1 tablet by mouth in the morning and 1 tablet in the evening. Take with meals. [facility] semaglutide (OZEMPIC) 1 mg/dose (4 mg/3 mL) PnIj 0 09-13 00:00: 00 Yes [id number] 1mg inject 1 mg under the skin weekly. [facility] pioglitazon e 30 mg tablet 09-13 00:00: 00 Yes [id number] 30mg Take 1 tablet by mouth in the morning. [facility] metFORMIN 1,000 mg tablet 09-13 00:00: 00 Yes [id number] 1000mg Take 1 tablet by mouth in the morning and 1 tablet in the evening. Take with meals. [facility] semaglutide (OZEMPIC) 1 mg/dose (4 mg/3 mL) PnIj 0 2- 00:00: 00 Yes [id number] 1mg inject 1 mg under the skin weekly. [facility] pioglitazon e 30 mg tablet - 00:00: 00 Yes [id number] 30mg Take 1 tablet by mouth in the morning. [facility] metFORMIN 1,000 mg tablet 2- 00:00: 00 Yes [id number] 1000mg Take 1 tablet by mouth in the morning and 1 tablet in the evening. Take with meals. [facility] semaglutide (OZEMPIC) 1 mg/dose (4 mg/3 mL) PnIj 2- 00:00: 00 Yes [id number] 1mg inject 1 mg under the skin weekly. [facility] pioglitazon e 30 mg tablet 2- 00:00: 00 Yes [id number] 30mg Take 1 tablet by mouth in the morning. [facility] metFORMIN 1,000 mg tablet 2 00:00: 00 Yes [id number] 1000mg Take 1 tablet by mouth in the morning and 1 tablet in the evening. Take with meals. [facility] semaglutide (OZEMPIC) 1 mg/dose (4 mg/3 mL) PnIj 2- 00:00: 00 Yes [id number] 1mg inject 1 mg under the skin weekly. [facility] pioglitazon e 30 mg tablet 2- 00:00: 00 Yes [id number] 30mg Take 1 tablet by mouth in the morning. [facility] metFORMIN 1,000 mg tablet 2 00:00: 00 Yes [id number] 1000mg Take 1 tablet by mouth in the morning and 1 tablet in the evening. Take with meals. [facility] semaglutide (OZEMPIC) 1 mg/dose (4 mg/3 mL) PnIj 0 2- 00:00: 00 Yes [id number] 1mg inject 1 mg under the skin weekly. [facility] pioglitazon e 30 mg tablet 2- 00:00: 00 Yes [id number] 30mg Take 1 tablet by mouth in the morning. [facility] metFORMIN 1,000 mg tablet 2- 00:00: 00 Yes [id number] 1000mg Take 1 tablet by mouth in the morning and 1 tablet in the evening. Take with meals. [facility] semaglutide (OZEMPIC) 1 mg/dose (4 mg/3 mL) PnIj 0 2- 00:00: 00 Yes [id number] 1mg inject 1 mg under the skin weekly. [facility] pioglitazon e 30 mg tablet 0 2- 00:00: 00 Yes [id number] 30mg Take 1 tablet by mouth in the morning. [facility] metFORMIN 1,000 mg tablet 2- 00:00: 00 Yes [id number] 1000mg Take 1 tablet by mouth in the morning and 1 tablet in the evening. Take with meals. [facility] semaglutide (OZEMPIC) 1 mg/dose (4 mg/3 mL) PnIj 0 2- 00:00: 00 Yes [id number] 1mg inject 1 mg under the skin weekly. [facility] pioglitazon e 30 mg tablet 09-13 00:00: 00 Yes [id number] 30mg Take 1 tablet by mouth in the morning. [facility] metFORMIN 1,000 mg tablet 09-13 00:00: 00 Yes [id number] 1000mg Take 1 tablet by mouth in the morning and 1 tablet in the evening. Take with meals. [facility] semaglutide (OZEMPIC) 1 mg/dose (4 mg/3 mL) PnIj 0 2- 00:00: 00 Yes [id number] 1mg inject 1 mg under the skin weekly. [facility] pioglitazon e 30 mg tablet 2- 00:00: 00 Yes [id number] 30mg Take 1 tablet by mouth in the morning. [facility] metFORMIN 1,000 mg tablet 2- 00:00: 00 Yes [id number] 1000mg Take 1 tablet by mouth in the morning and 1 tablet in the evening. Take with meals. [facility] semaglutide (OZEMPIC) 1 mg/dose (4 mg/3 mL) PnIj 0 2- 00:00: 00 Yes [id number] 1mg inject 1 mg under the skin weekly. [facility] pioglitazon e 30 mg tablet 2- 00:00: 00 Yes [id number] 30mg Take 1 tablet by mouth in the morning. [facility] metFORMIN 1,000 mg tablet 2 00:00: 00 Yes [id number] 1000mg Take 1 tablet by mouth in the morning and 1 tablet in the evening. Take with meals. [facility] semaglutide (OZEMPIC) 1 mg/dose (4 mg/3 mL) PnIj 2- 00:00: 00 Yes [id number] 1mg inject 1 mg under the skin weekly. [facility] pioglitazon e 30 mg tablet 09-13 00:00: 00 Yes [id number] 30mg Take 1 tablet by mouth in the morning. [facility] metFORMIN 1,000 mg tablet 09-13 00:00: 00 Yes [id number] 1000mg Take 1 tablet by mouth in the morning and 1 tablet in the evening. Take with meals. [facility] semaglutide (OZEMPIC) 1 mg/dose (4 mg/3 mL) PnIj 0 09-13 00:00: 00 Yes [id number] 1mg inject 1 mg under the skin weekly. [facility] pioglitazon e 30 mg tablet 09-13 00:00: 00 Yes [id number] 30mg Take 1 tablet by mouth in the morning. [facility] metFORMIN 1,000 mg tablet 09-13 00:00: 00 Yes [id number] 1000mg Take 1 tablet by mouth in the morning and 1 tablet in the evening. Take with meals. [facility] semaglutide (OZEMPIC) 1 mg/dose (4 mg/3 mL) PnIj 0 2- 00:00: 00 Yes [id number] 1mg inject 1 mg under the skin weekly. [facility] pioglitazon e 30 mg tablet - 00:00: 00 Yes [id number] 30mg Take 1 tablet by mouth in the morning. [facility] metFORMIN 1,000 mg tablet 2- 00:00: 00 Yes [id number] 1000mg Take 1 tablet by mouth in the morning and 1 tablet in the evening. Take with meals. [facility] semaglutide (OZEMPIC) 1 mg/dose (4 mg/3 mL) PnIj 2- 00:00: 00 Yes [id number] 1mg inject 1 mg under the skin weekly. [facility] pioglitazon e 30 mg tablet 2- 00:00: 00 Yes [id number] 30mg Take 1 tablet by mouth in the morning. [facility] metFORMIN 1,000 mg tablet 2 00:00: 00 Yes [id number] 1000mg Take 1 tablet by mouth in the morning and 1 tablet in the evening. Take with meals. [facility] semaglutide (OZEMPIC) 1 mg/dose (4 mg/3 mL) PnIj 2- 00:00: 00 Yes [id number] 1mg inject 1 mg under the skin weekly. [facility] pioglitazon e 30 mg tablet 2- 00:00: 00 Yes [id number] 30mg Take 1 tablet by mouth in the morning. [facility] metFORMIN 1,000 mg tablet 2 00:00: 00 Yes [id number] 1000mg Take 1 tablet by mouth in the morning and 1 tablet in the evening. Take with meals. [facility] semaglutide (OZEMPIC) 1 mg/dose (4 mg/3 mL) PnIj 0 2- 00:00: 00 Yes [id number] 1mg inject 1 mg under the skin weekly. [facility] pioglitazon e 30 mg tablet 2- 00:00: 00 Yes [id number] 30mg Take 1 tablet by mouth in the morning. [facility] metFORMIN 1,000 mg tablet 2- 00:00: 00 Yes [id number] 1000mg Take 1 tablet by mouth in the morning and 1 tablet in the evening. Take with meals. [facility] semaglutide (OZEMPIC) 1 mg/dose (4 mg/3 mL) PnIj 0 2- 00:00: 00 Yes [id number] 1mg inject 1 mg under the skin weekly. [facility] pioglitazon e 30 mg tablet 0 2- 00:00: 00 Yes [id number] 30mg Take 1 tablet by mouth in the morning. [facility] metFORMIN 1,000 mg tablet 2- 00:00: 00 Yes [id number] 1000mg Take 1 tablet by mouth in the morning and 1 tablet in the evening. Take with meals. [facility] semaglutide (OZEMPIC) 1 mg/dose (4 mg/3 mL) PnIj 0 2- 00:00: 00 Yes [id number] 1mg inject 1 mg under the skin weekly. [facility] pioglitazon e 30 mg tablet 09-13 00:00: 00 Yes [id number] 30mg Take 1 tablet by mouth in the morning. [facility] metFORMIN 1,000 mg tablet 09-13 00:00: 00 Yes [id number] 1000mg Take 1 tablet by mouth in the morning and 1 tablet in the evening. Take with meals. [facility] semaglutide (OZEMPIC) 1 mg/dose (4 mg/3 mL) PnIj 0 2- 00:00: 00 Yes [id number] 1mg inject 1 mg under the skin weekly. [facility] pioglitazon e 30 mg tablet 2- 00:00: 00 Yes [id number] 30mg Take 1 tablet by mouth in the morning. [facility] metFORMIN 1,000 mg tablet 2- 00:00: 00 Yes [id number] 1000mg Take 1 tablet by mouth in the morning and 1 tablet in the evening. Take with meals. [facility] semaglutide (OZEMPIC) 1 mg/dose (4 mg/3 mL) PnIj 0 2- 00:00: 00 Yes [id number] 1mg inject 1 mg under the skin weekly. [facility] pioglitazon e 30 mg tablet 2- 00:00: 00 Yes [id number] 30mg Take 1 tablet by mouth in the morning. [facility] metFORMIN 1,000 mg tablet 2 00:00: 00 Yes [id number] 1000mg Take 1 tablet by mouth in the morning and 1 tablet in the evening. Take with meals. [facility] semaglutide (OZEMPIC) 1 mg/dose (4 mg/3 mL) PnIj 2- 00:00: 00 Yes [id number] 1mg inject 1 mg under the skin weekly. [facility] pioglitazon e 30 mg tablet 09-13 00:00: 00 Yes [id number] 30mg Take 1 tablet by mouth in the morning. [facility] metFORMIN 1,000 mg tablet 09-13 00:00: 00 Yes [id number] 1000mg Take 1 tablet by mouth in the morning and 1 tablet in the evening. Take with meals. [facility] semaglutide (OZEMPIC) 1 mg/dose (4 mg/3 mL) PnIj 0 09-13 00:00: 00 Yes [id number] 1mg inject 1 mg under the skin weekly. [facility] pioglitazon e 30 mg tablet 09-13 00:00: 00 Yes [id number] 30mg Take 1 tablet by mouth in the morning. [facility] metFORMIN 1,000 mg tablet 09-13 00:00: 00 Yes [id number] 1000mg Take 1 tablet by mouth in the morning and 1 tablet in the evening. Take with meals. [facility] semaglutide (OZEMPIC) 1 mg/dose (4 mg/3 mL) PnIj 0 2- 00:00: 00 Yes [id number] 1mg inject 1 mg under the skin weekly. [facility] pioglitazon e 30 mg tablet - 00:00: 00 Yes [id number] 30mg Take 1 tablet by mouth in the morning. [facility] metFORMIN 1,000 mg tablet 2- 00:00: 00 Yes [id number] 1000mg Take 1 tablet by mouth in the morning and 1 tablet in the evening. Take with meals. [facility] semaglutide (OZEMPIC) 1 mg/dose (4 mg/3 mL) PnIj 2- 00:00: 00 Yes [id number] 1mg inject 1 mg under the skin weekly. [facility] pioglitazon e 30 mg tablet 2- 00:00: 00 Yes [id number] 30mg Take 1 tablet by mouth in the morning. [facility] metFORMIN 1,000 mg tablet 2 00:00: 00 Yes [id number] 1000mg Take 1 tablet by mouth in the morning and 1 tablet in the evening. Take with meals. [facility] semaglutide (OZEMPIC) 1 mg/dose (4 mg/3 mL) PnIj 2- 00:00: 00 Yes [id number] 1mg inject 1 mg under the skin weekly. [facility] pioglitazon e 30 mg tablet 2- 00:00: 00 Yes [id number] 30mg Take 1 tablet by mouth in the morning. [facility] metFORMIN 1,000 mg tablet 2 00:00: 00 Yes [id number] 1000mg Take 1 tablet by mouth in the morning and 1 tablet in the evening. Take with meals. [facility] semaglutide (OZEMPIC) 1 mg/dose (4 mg/3 mL) PnIj 0 2- 00:00: 00 Yes [id number] 1mg inject 1 mg under the skin weekly. [facility] pioglitazon e 30 mg tablet 2- 00:00: 00 Yes [id number] 30mg Take 1 tablet by mouth in the morning. [facility] metFORMIN 1,000 mg tablet 2- 00:00: 00 Yes [id number] 1000mg Take 1 tablet by mouth in the morning and 1 tablet in the evening. Take with meals. [facility] semaglutide (OZEMPIC) 1 mg/dose (4 mg/3 mL) PnIj 0 2- 00:00: 00 Yes [id number] 1mg inject 1 mg under the skin weekly. [facility] pioglitazon e 30 mg tablet 0 2- 00:00: 00 Yes [id number] 30mg Take 1 tablet by mouth in the morning. [facility] metFORMIN 1,000 mg tablet 2- 00:00: 00 Yes [id number] 1000mg Take 1 tablet by mouth in the morning and 1 tablet in the evening. Take with meals. [facility] semaglutide (OZEMPIC) 1 mg/dose (4 mg/3 mL) PnIj 0 2- 00:00: 00 Yes [id number] 1mg inject 1 mg under the skin weekly. [facility] pioglitazon e 30 mg tablet 09-13 00:00: 00 Yes [id number] 30mg Take 1 tablet by mouth in the morning. [facility] metFORMIN 1,000 mg tablet 09-13 00:00: 00 Yes [id number] 1000mg Take 1 tablet by mouth in the morning and 1 tablet in the evening. Take with meals. [facility] semaglutide (OZEMPIC) 1 mg/dose (4 mg/3 mL) PnIj 0 2- 00:00: 00 Yes [id number] 1mg inject 1 mg under the skin weekly. [facility] pioglitazon e 30 mg tablet 2- 00:00: 00 Yes [id number] 30mg Take 1 tablet by mouth in the morning. [facility] metFORMIN 1,000 mg tablet 2- 00:00: 00 Yes [id number] 1000mg Take 1 tablet by mouth in the morning and 1 tablet in the evening. Take with meals. [facility] semaglutide (OZEMPIC) 1 mg/dose (4 mg/3 mL) PnIj 0 2- 00:00: 00 Yes [id number] 1mg inject 1 mg under the skin weekly. [facility] pioglitazon e 30 mg tablet 2- 00:00: 00 Yes [id number] 30mg Take 1 tablet by mouth in the morning. [facility] metFORMIN 1,000 mg tablet 0 2- 00:00: 00 Yes [id number] 1000mg Take 1 tablet by mouth in the morning and 1 tablet in the evening. Take with meals. [facility] semaglutide (OZEMPIC) 1 mg/dose (4 mg/3 mL) PnIj 0 2- 00:00: 00 Yes [id number] 1mg inject 1 mg under the skin weekly. [facility] pioglitazon e 30 mg tablet 0 2- 00:00: 00 Yes [id number] 30mg Take 1 tablet by mouth in the morning. [facility] metFORMIN 1,000 mg tablet 0 2- 00:00: 00 Yes [id number] 1000mg Take 1 tablet by mouth in the morning and 1 tablet in the evening. Take with meals. [facility] semaglutide (OZEMPIC) 1 mg/dose (4 mg/3 mL) PnIj 0 - 00:00: 00 Yes [id number] 1mg inject 1 mg under the skin weekly. [facility] pioglitazon e 30 mg tablet 0 2- 00:00: 00 Yes [id number] 30mg Take 1 tablet by mouth in the morning. [facility] metFORMIN 1,000 mg tablet 0 2- 00:00: 00 Yes [id number] 1000mg Take 1 tablet by mouth in the morning and 1 tablet in the evening. Take with meals. [facility] pioglitazon e 30 mg tablet 2022-0 2- 00:00: 00 Yes [id number] 30mg Take 1 tablet by mouth in the morning. [facility] metFORMIN 1,000 mg tablet 2022-0 2- 00:00: 00 Yes [id number] 1000mg Take 1 tablet by mouth in the morning and 1 tablet in the evening. Take with meals. [facility] pioglitazon e 30 mg tablet 2022-0 2- 00:00: 00 Yes [id number] 30mg Take 1 tablet by mouth in the morning. [facility] metFORMIN 1,000 mg tablet 3-0 2- 00:00: 00 Yes [id number] 1000mg Take 1 tablet by mouth in the morning and 1 tablet in the evening. Take with meals. [facility] pioglitazon e 30 mg tablet 3-0 2- 00:00: 00 Yes [id number] 30mg Take 1 tablet by mouth in the morning. [facility] metFORMIN 1,000 mg tablet 2022-0 2- 00:00: 00 Yes [id number] 1000mg Take 1 tablet by mouth in the morning and 1 tablet in the evening. Take with meals. [facility] pioglitazon e 30 mg tablet 3-0 2- 00:00: 00 Yes [id number] 30mg Take 1 tablet by mouth in the morning. [facility] metFORMIN 1,000 mg tablet 2022-0 2- 00:00: 00 Yes [id number] 1000mg Take 1 tablet by mouth in the morning and 1 tablet in the evening. Take with meals. [facility] pioglitazon e 30 mg tablet 3-0 2- 00:00: 00 Yes [id number] 30mg Take 1 tablet by mouth in the morning. [facility] metFORMIN 1,000 mg tablet 2022-0 2- 00:00: 00 Yes [id number] 1000mg Take 1 tablet by mouth in the morning and 1 tablet in the evening. Take with meals. [facility] pioglitazon e 30 mg tablet 3-0 2- 00:00: 00 Yes [id number] 30mg Take 1 tablet by mouth in the morning. [facility] metFORMIN 1,000 mg tablet 3-0 2- 00:00: 00 Yes [id number] 1000mg Take 1 tablet by mouth in the morning and 1 tablet in the evening. Take with meals. [facility] pioglitazon e 30 mg tablet 3-0 2- 00:00: 00 Yes [id number] 30mg Take 1 tablet by mouth in the morning. [facility] metFORMIN 1,000 mg tablet 2023-0 2- 00:00: 00 Yes [id number] 1000mg Take 1 tablet by mouth in the morning and 1 tablet in the evening. Take with meals. [facility] pioglitazon e 30 mg tablet 2022-0 2- 00:00: 00 Yes [id number] 30mg Take 1 tablet by mouth in the morning. [facility] metFORMIN 1,000 mg tablet 2022-0 2 00:00: 00 Yes [id number] 1000mg Take 1 tablet by mouth in the morning and 1 tablet in the evening. Take with meals. [facility] pioglitazon e 30 mg tablet 2022-0 2 00:00: 00 Yes [id number] 30mg Take 1 tablet by mouth in the morning. [facility] metFORMIN 1,000 mg tablet 2022-0 09-13 00:00: 00 Yes [id number] 1000mg Take 1 tablet by mouth in the morning and 1 tablet in the evening. Take with meals. [facility] pioglitazon e 30 mg tablet 2022-0 2 00:00: 00 Yes [id number] 30mg Take 1 tablet by mouth in the morning. [facility] metFORMIN 1,000 mg tablet 2022-0 09-13 00:00: 00 Yes [id number] 1000mg Take 1 tablet by mouth in the morning and 1 tablet in the evening. Take with meals. [facility] pioglitazon e 30 mg tablet 2022-0 2 00:00: 00 Yes [id number] 30mg Take 1 tablet by mouth in the morning. [facility] metFORMIN 1,000 mg tablet 2022-0 2- 00:00: 00 Yes [id number] 1000mg Take 1 tablet by mouth in the morning and 1 tablet in the evening. Take with meals. [facility] pioglitazon e 30 mg tablet 3-0 2- 00:00: 00 Yes [id number] 30mg Take 1 tablet by mouth in the morning. [facility] metFORMIN 1,000 mg tablet 3-0 2- 00:00: 00 Yes [id number] 1000mg Take 1 tablet by mouth in the morning and 1 tablet in the evening. Take with meals. [facility] pioglitazon e 30 mg tablet 3-0 2- 00:00: 00 Yes [id number] 30mg Take 1 tablet by mouth in the morning. [facility] metFORMIN 1,000 mg tablet 3-0 2- 00:00: 00 Yes [id number] 1000mg Take 1 tablet by mouth in the morning and 1 tablet in the evening. Take with meals. [facility] pioglitazon e 30 mg tablet 3-0 2- 00:00: 00 Yes [id number] 30mg Take 1 tablet by mouth in the morning. [facility] metFORMIN 1,000 mg tablet 2022-0 2- 00:00: 00 Yes [id number] 1000mg Take 1 tablet by mouth in the morning and 1 tablet in the evening. Take with meals. [facility] pioglitazon e 30 mg tablet 3-0 2- 00:00: 00 Yes [id number] 30mg Take 1 tablet by mouth in the morning. [facility] metFORMIN 1,000 mg tablet 2022-0 2- 00:00: 00 Yes [id number] 1000mg Take 1 tablet by mouth in the morning and 1 tablet in the evening. Take with meals. [facility] pioglitazon e 30 mg tablet 3-0 2- 00:00: 00 Yes [id number] 30mg Take 1 tablet by mouth in the morning. [facility] metFORMIN 1,000 mg tablet 3-0 2- 00:00: 00 Yes [id number] 1000mg Take 1 tablet by mouth in the morning and 1 tablet in the evening. Take with meals. [facility] pioglitazon e 30 mg tablet 3-0 2- 00:00: 00 Yes [id number] 30mg Take 1 tablet by mouth in the morning. [facility] metFORMIN 1,000 mg tablet 3-0 2- 00:00: 00 Yes [id number] 1000mg Take 1 tablet by mouth in the morning and 1 tablet in the evening. Take with meals. [facility] pioglitazon e 30 mg tablet 3-0 2- 00:00: 00 Yes [id number] 30mg Take 1 tablet by mouth in the morning. [facility] metFORMIN 1,000 mg tablet 3-0 2- 00:00: 00 Yes [id number] 1000mg Take 1 tablet by mouth in the morning and 1 tablet in the evening. Take with meals. [facility] pioglitazon e 30 mg tablet 3-0 2- 00:00: 00 Yes [id number] 30mg Take 1 tablet by mouth in the morning. [facility] metFORMIN 1,000 mg tablet 3-0 2- 00:00: 00 Yes [id number] 1000mg Take 1 tablet by mouth in the morning and 1 tablet in the evening. Take with meals. [facility] pioglitazon e 30 mg tablet 3-0 2- 00:00: 00 Yes [id number] 30mg Take 1 tablet by mouth in the morning. [facility] metFORMIN 1,000 mg tablet 2022-0 2- 00:00: 00 Yes [id number] 1000mg Take 1 tablet by mouth in the morning and 1 tablet in the evening. Take with meals. [facility] pioglitazon e 30 mg tablet 3-0 2- 00:00: 00 Yes [id number] 30mg Take 1 tablet by mouth in the morning. [facility] metFORMIN 1,000 mg tablet 3-0 2- 00:00: 00 Yes [id number] 1000mg Take 1 tablet by mouth in the morning and 1 tablet in the evening. Take with meals. [facility] pioglitazon e 30 mg tablet 3-0 2- 00:00: 00 Yes [id number] 30mg Take 1 tablet by mouth in the morning. [facility] metFORMIN 1,000 mg tablet 3-0 2- 00:00: 00 Yes [id number] 1000mg Take 1 tablet by mouth in the morning and 1 tablet in the evening. Take with meals. [facility] pioglitazon e 30 mg tablet 3-0 2- 00:00: 00 Yes [id number] 30mg Take 1 tablet by mouth in the morning. [facility] metFORMIN 1,000 mg tablet 3-0 2- 00:00: 00 Yes [id number] 1000mg Take 1 tablet by mouth in the morning and 1 tablet in the evening. Take with meals. [facility] pioglitazon e 30 mg tablet 2023-0 2- 00:00: 00 Yes [id number] 30mg Take 1 tablet by mouth in the morning. [facility] metFORMIN 1,000 mg tablet 3-0 2- 00:00: 00 Yes [id number] 1000mg Take 1 tablet by mouth in the morning and 1 tablet in the evening. Take with meals. [facility] pioglitazon e 30 mg tablet 3-0 2- 00:00: 00 Yes [id number] 30mg Take 1 tablet by mouth in the morning. [facility] metFORMIN 1,000 mg tablet 3-0 2- 00:00: 00 Yes [id number] 1000mg Take 1 tablet by mouth in the morning and 1 tablet in the evening. Take with meals. [facility] pioglitazon e 30 mg tablet 3-0 2- 00:00: 00 Yes [id number] 30mg Take 1 tablet by mouth in the morning. [facility] metFORMIN 1,000 mg tablet 3-0 2- 00:00: 00 Yes [id number] 1000mg Take 1 tablet by mouth in the morning and 1 tablet in the evening. Take with meals. [facility] pioglitazon e 30 mg tablet 3-0 2- 00:00: 00 Yes [id number] 30mg Take 1 tablet by mouth in the morning. [facility] metFORMIN 1,000 mg tablet 3-0 2- 00:00: 00 Yes [id number] 1000mg Take 1 tablet by mouth in the morning and 1 tablet in the evening. Take with meals. [facility] pioglitazon e 30 mg tablet 2023-0 2- 00:00: 00 Yes [id number] 30mg Take 1 tablet by mouth in the morning. [facility] metFORMIN 1,000 mg tablet 3-0 2- 00:00: 00 Yes [id number] 1000mg Take 1 tablet by mouth in the morning and 1 tablet in the evening. Take with meals. [facility] pioglitazon e 30 mg tablet 2022-0 2- 00:00: 00 Yes [id number] 30mg Take 1 tablet by mouth in the morning. [facility] metFORMIN 1,000 mg tablet 2022-0 2 00:00: 00 Yes [id number] 1000mg Take 1 tablet by mouth in the morning and 1 tablet in the evening. Take with meals. [facility] pioglitazon e 30 mg tablet 2022-0 2 00:00: 00 Yes [id number] 30mg Take 1 tablet by mouth in the morning. [facility] metFORMIN 1,000 mg tablet 2022-0 09-13 00:00: 00 Yes [id number] 1000mg Take 1 tablet by mouth in the morning and 1 tablet in the evening. Take with meals. [facility] pioglitazon e 30 mg tablet 2022-0 2 00:00: 00 Yes [id number] 30mg Take 1 tablet by mouth in the morning. [facility] metFORMIN 1,000 mg tablet 2022-0 09-13 00:00: 00 Yes [id number] 1000mg Take 1 tablet by mouth in the morning and 1 tablet in the evening. Take with meals. [facility] pioglitazon e 30 mg tablet 2022-0 2 00:00: 00 Yes [id number] 30mg Take 1 tablet by mouth in the morning. [facility] metFORMIN 1,000 mg tablet 2022-0 2- 00:00: 00 Yes [id number] 1000mg Take 1 tablet by mouth in the morning and 1 tablet in the evening. Take with meals. [facility] pioglitazon e 30 mg tablet 3-0 2- 00:00: 00 Yes [id number] 30mg Take 1 tablet by mouth in the morning. [facility] metFORMIN 1,000 mg tablet 3-0 2- 00:00: 00 Yes [id number] 1000mg Take 1 tablet by mouth in the morning and 1 tablet in the evening. Take with meals. [facility] pioglitazon e 30 mg tablet 3-0 2- 00:00: 00 Yes [id number] 30mg Take 1 tablet by mouth in the morning. [facility] metFORMIN 1,000 mg tablet 2022-0 2- 00:00: 00 Yes [id number] 1000mg Take 1 tablet by mouth in the morning and 1 tablet in the evening. Take with meals. [facility] pioglitazon e 30 mg tablet 3-0 2- 00:00: 00 Yes [id number] 30mg Take 1 tablet by mouth in the morning. [facility] metFORMIN 1,000 mg tablet 2022-0 2- 00:00: 00 Yes [id number] 1000mg Take 1 tablet by mouth in the morning and 1 tablet in the evening. Take with meals. [facility] pioglitazon e 30 mg tablet 3-0 2- 00:00: 00 Yes [id number] 30mg Take 1 tablet by mouth in the morning. [facility] metFORMIN 1,000 mg tablet 2022-0 2- 00:00: 00 Yes [id number] 1000mg Take 1 tablet by mouth in the morning and 1 tablet in the evening. Take with meals. [facility] pioglitazon e 30 mg tablet 2022-0 2- 00:00: 00 Yes [id number] 30mg Take 1 tablet by mouth in the morning. [facility] metFORMIN 1,000 mg tablet 2022-0 2- 00:00: 00 Yes [id number] 1000mg Take 1 tablet by mouth in the morning and 1 tablet in the evening. Take with meals. [facility] pioglitazon e 30 mg tablet 3-0 2- 00:00: 00 Yes [id number] 30mg Take 1 tablet by mouth in the morning. [facility] metFORMIN 1,000 mg tablet 3-0 2- 00:00: 00 Yes [id number] 1000mg Take 1 tablet by mouth in the morning and 1 tablet in the evening. Take with meals. [facility] pioglitazon e 30 mg tablet 3-0 2- 00:00: 00 Yes [id number] 30mg Take 1 tablet by mouth in the morning. [facility] metFORMIN 1,000 mg tablet 3-0 2- 00:00: 00 Yes [id number] 1000mg Take 1 tablet by mouth in the morning and 1 tablet in the evening. Take with meals. [facility] pioglitazon e 30 mg tablet 3-0 2- 00:00: 00 Yes [id number] 30mg Take 1 tablet by mouth in the morning. [facility] metFORMIN 1,000 mg tablet 3-0 2- 00:00: 00 Yes [id number] 1000mg Take 1 tablet by mouth in the morning and 1 tablet in the evening. Take with meals. [facility] pioglitazon e 30 mg tablet 3-0 2- 00:00: 00 Yes [id number] 30mg Take 1 tablet by mouth in the morning. [facility] metFORMIN 1,000 mg tablet 2022-0 2- 00:00: 00 Yes [id number] 1000mg Take 1 tablet by mouth in the morning and 1 tablet in the evening. Take with meals. [facility] pioglitazon e 30 mg tablet 3-0 2- 00:00: 00 Yes [id number] 30mg Take 1 tablet by mouth in the morning. [facility] metFORMIN 1,000 mg tablet 2022-0 2- 00:00: 00 Yes [id number] 1000mg Take 1 tablet by mouth in the morning and 1 tablet in the evening. Take with meals. [facility] pioglitazon e 30 mg tablet 3-0 2- 00:00: 00 Yes [id number] 30mg Take 1 tablet by mouth in the morning. [facility] metFORMIN 1,000 mg tablet 3-0 2- 00:00: 00 Yes [id number] 1000mg Take 1 tablet by mouth in the morning and 1 tablet in the evening. Take with meals. [facility] pioglitazon e 30 mg tablet 3-0 2- 00:00: 00 Yes [id number] 30mg Take 1 tablet by mouth in the morning. [facility] metFORMIN 1,000 mg tablet 3-0 2- 00:00: 00 Yes [id number] 1000mg Take 1 tablet by mouth in the morning and 1 tablet in the evening. Take with meals. [facility] pioglitazon e 30 mg tablet 3-0 2- 00:00: 00 Yes [id number] 30mg Take 1 tablet by mouth in the morning. [facility] metFORMIN 1,000 mg tablet 3-0 2- 00:00: 00 Yes [id number] 1000mg Take 1 tablet by mouth in the morning and 1 tablet in the evening. Take with meals. [facility] pioglitazon e 30 mg tablet 3-0 2- 00:00: 00 Yes [id number] 30mg Take 1 tablet by mouth in the morning. [facility] metFORMIN 1,000 mg tablet 2022-0 2- 00:00: 00 Yes [id number] 1000mg Take 1 tablet by mouth in the morning and 1 tablet in the evening. Take with meals. [facility] pioglitazon e 30 mg tablet 3-0 2- 00:00: 00 Yes [id number] 30mg Take 1 tablet by mouth in the morning. [facility] metFORMIN 1,000 mg tablet 2022-0 2- 00:00: 00 Yes [id number] 1000mg Take 1 tablet by mouth in the morning and 1 tablet in the evening. Take with meals. [facility] pioglitazon e 30 mg tablet 3-0 2- 00:00: 00 Yes [id number] 30mg Take 1 tablet by mouth in the morning. [facility] metFORMIN 1,000 mg tablet 3-0 2- 00:00: 00 Yes [id number] 1000mg Take 1 tablet by mouth in the morning and 1 tablet in the evening. Take with meals. [facility] pioglitazon e 30 mg tablet 3-0 2- 00:00: 00 Yes [id number] 30mg Take 1 tablet by mouth in the morning. [facility] metFORMIN 1,000 mg tablet 3-0 2- 00:00: 00 Yes [id number] 1000mg Take 1 tablet by mouth in the morning and 1 tablet in the evening. Take with meals. [facility] pioglitazon e 30 mg tablet 3-0 2- 00:00: 00 Yes [id number] 30mg Take 1 tablet by mouth in the morning. [facility] metFORMIN 1,000 mg tablet 2022-0 2- 00:00: 00 Yes [id number] 1000mg Take 1 tablet by mouth in the morning and 1 tablet in the evening. Take with meals. [facility] pioglitazon e 30 mg tablet 3-0 2- 00:00: 00 Yes [id number] 30mg Take 1 tablet by mouth in the morning. [facility] metFORMIN 1,000 mg tablet 2022-0 2- 00:00: 00 Yes [id number] 1000mg Take 1 tablet by mouth in the morning and 1 tablet in the evening. Take with meals. [facility] pioglitazon e 30 mg tablet 2022-0 2- 00:00: 00 Yes [id number] 30mg Take 1 tablet by mouth in the morning. [facility] metFORMIN 1,000 mg tablet 2022-0 2- 00:00: 00 Yes [id number] 1000mg Take 1 tablet by mouth in the morning and 1 tablet in the evening. Take with meals. [facility] pioglitazon e 30 mg tablet 2022-0 2- 00:00: 00 Yes [id number] 30mg Take 1 tablet by mouth in the morning. [facility] metFORMIN 1,000 mg tablet 2022-0 2- 00:00: 00 Yes [id number] 1000mg Take 1 tablet by mouth in the morning and 1 tablet in the evening. Take with meals. [facility] pioglitazon e 30 mg tablet 3-0 2- 00:00: 00 Yes [id number] 30mg Take 1 tablet by mouth in the morning. [facility] metFORMIN 1,000 mg tablet 3-0 2- 00:00: 00 Yes [id number] 1000mg Take 1 tablet by mouth in the morning and 1 tablet in the evening. Take with meals. [facility] pioglitazon e 30 mg tablet 2022-0 2- 00:00: 00 Yes [id number] 30mg Take 1 tablet by mouth in the morning. [facility] metFORMIN 1,000 mg tablet 2022-0 2- 00:00: 00 Yes [id number] 1000mg Take 1 tablet by mouth in the morning and 1 tablet in the evening. Take with meals. [facility] pioglitazon e 30 mg tablet 3-0 2- 00:00: 00 Yes [id number] 30mg Take 1 tablet by mouth in the morning. [facility] metFORMIN 1,000 mg tablet 2022-0 2- 00:00: 00 Yes [id number] 1000mg Take 1 tablet by mouth in the morning and 1 tablet in the evening. Take with meals. [facility] pioglitazon e 30 mg tablet 2022-0 2- 00:00: 00 Yes [id number] 30mg Take 1 tablet by mouth in the morning. [facility] metFORMIN 1,000 mg tablet 2022-0 2- 00:00: 00 Yes [id number] 1000mg Take 1 tablet by mouth in the morning and 1 tablet in the evening. Take with meals. [facility] pioglitazon e 30 mg tablet 2022-0 2- 00:00: 00 Yes [id number] 30mg Take 1 tablet by mouth in the morning. [facility] metFORMIN 1,000 mg tablet 2022-0 2- 00:00: 00 Yes [id number] 1000mg Take 1 tablet by mouth in the morning and 1 tablet in the evening. Take with meals. [facility] pioglitazon e 30 mg tablet 3-0 2- 00:00: 00 Yes [id number] 30mg Take 1 tablet by mouth in the morning. [facility] metFORMIN 1,000 mg tablet 2022-0 2- 00:00: 00 Yes [id number] 1000mg Take 1 tablet by mouth in the morning and 1 tablet in the evening. Take with meals. [facility] pioglitazon e 30 mg tablet 3-0 2- 00:00: 00 Yes [id number] 30mg Take 1 tablet by mouth in the morning. [facility] metFORMIN 1,000 mg tablet 2022-0 2- 00:00: 00 Yes [id number] 1000mg Take 1 tablet by mouth in the morning and 1 tablet in the evening. Take with meals. [facility] pioglitazon e 30 mg tablet 3-0 2- 00:00: 00 Yes [id number] 30mg Take 1 tablet by mouth in the morning. [facility] metFORMIN 1,000 mg tablet 2022-0 2- 00:00: 00 Yes [id number] 1000mg Take 1 tablet by mouth in the morning and 1 tablet in the evening. Take with meals. [facility] pioglitazon e 30 mg tablet 2022-0 2- 00:00: 00 Yes [id number] 30mg Take 1 tablet by mouth in the morning. [facility] metFORMIN 1,000 mg tablet 2022-0 2- 00:00: 00 Yes [id number] 1000mg Take 1 tablet by mouth in the morning and 1 tablet in the evening. Take with meals. [facility] pioglitazon e 30 mg tablet 3-0 2- 00:00: 00 Yes [id number] 30mg Take 1 tablet by mouth in the morning. [facility] metFORMIN 1,000 mg tablet 2022-0 2- 00:00: 00 Yes [id number] 1000mg Take 1 tablet by mouth in the morning and 1 tablet in the evening. Take with meals. [facility] pioglitazon e 30 mg tablet 3-0 2- 00:00: 00 Yes [id number] 30mg Take 1 tablet by mouth in the morning. [facility] metFORMIN 1,000 mg tablet 3-0 2- 00:00: 00 Yes [id number] 1000mg Take 1 tablet by mouth in the morning and 1 tablet in the evening. Take with meals. [facility] pioglitazon e 30 mg tablet 3-0 2- 00:00: 00 Yes [id number] 30mg Take 1 tablet by mouth in the morning. [facility] metFORMIN 1,000 mg tablet 3-0 2- 00:00: 00 Yes [id number] 1000mg Take 1 tablet by mouth in the morning and 1 tablet in the evening. Take with meals. [facility] pioglitazon e 30 mg tablet 2022-0 2- 00:00: 00 Yes [id number] 30mg Take 1 tablet by mouth in the morning. [facility] metFORMIN 1,000 mg tablet 2022-0 2- 00:00: 00 Yes [id number] 1000mg Take 1 tablet by mouth in the morning and 1 tablet in the evening. Take with meals. [facility] pioglitazon e 30 mg tablet 3-0 2- 00:00: 00 Yes [id number] 30mg Take 1 tablet by mouth in the morning. [facility] metFORMIN 1,000 mg tablet 2022-0 2- 00:00: 00 Yes [id number] 1000mg Take 1 tablet by mouth in the morning and 1 tablet in the evening. Take with meals. [facility] pioglitazon e 30 mg tablet 2022-0 2- 00:00: 00 Yes [id number] 30mg Take 1 tablet by mouth in the morning. [facility] metFORMIN 1,000 mg tablet 2022-0 2- 00:00: 00 Yes [id number] 1000mg Take 1 tablet by mouth in the morning and 1 tablet in the evening. Take with meals. [facility] pioglitazon e 30 mg tablet 3-0 2- 00:00: 00 Yes [id number] 30mg Take 1 tablet by mouth in the morning. [facility] metFORMIN 1,000 mg tablet 3-0 2- 00:00: 00 Yes [id number] 1000mg Take 1 tablet by mouth in the morning and 1 tablet in the evening. Take with meals. [facility] pioglitazon e 30 mg tablet 3-0 2- 00:00: 00 Yes [id number] 30mg Take 1 tablet by mouth in the morning. [facility] metFORMIN 1,000 mg tablet 3-0 2- 00:00: 00 Yes [id number] 1000mg Take 1 tablet by mouth in the morning and 1 tablet in the evening. Take with meals. [facility] pioglitazon e 30 mg tablet 3-0 2- 00:00: 00 Yes [id number] 30mg Take 1 tablet by mouth in the morning. [facility] metFORMIN 1,000 mg tablet 2022-0 2- 00:00: 00 Yes [id number] 1000mg Take 1 tablet by mouth in the morning and 1 tablet in the evening. Take with meals. [facility] pioglitazon e 30 mg tablet 3-0 2- 00:00: 00 Yes [id number] 30mg Take 1 tablet by mouth in the morning. [facility] metFORMIN 1,000 mg tablet 2022-0 2- 00:00: 00 Yes [id number] 1000mg Take 1 tablet by mouth in the morning and 1 tablet in the evening. Take with meals. [facility] pioglitazon e 30 mg tablet 2022-0 2- 00:00: 00 Yes [id number] 30mg Take 1 tablet by mouth in the morning. [facility] metFORMIN 1,000 mg tablet 2022-0 2 00:00: 00 Yes [id number] 1000mg Take 1 tablet by mouth in the morning and 1 tablet in the evening. Take with meals. [facility] pioglitazon e 30 mg tablet 3-0 2- 00:00: 00 Yes [id number] 30mg Take 1 tablet by mouth in the morning. [facility] metFORMIN 1,000 mg tablet 2022-0 2- 00:00: 00 Yes [id number] 1000mg Take 1 tablet by mouth in the morning and 1 tablet in the evening. Take with meals. [facility] pioglitazon e 30 mg tablet 3-0 2- 00:00: 00 Yes [id number] 30mg Take 1 tablet by mouth in the morning. [facility] metFORMIN 1,000 mg tablet 3-0 2- 00:00: 00 Yes [id number] 1000mg Take 1 tablet by mouth in the morning and 1 tablet in the evening. Take with meals. [facility] pioglitazon e 30 mg tablet 3-0 2- 00:00: 00 Yes [id number] 30mg Take 1 tablet by mouth in the morning. [facility] metFORMIN 1,000 mg tablet 2022-0 2- 00:00: 00 Yes [id number] 1000mg Take 1 tablet by mouth in the morning and 1 tablet in the evening. Take with meals. [facility] pioglitazon e 30 mg tablet 3-0 2- 00:00: 00 Yes [id number] 30mg Take 1 tablet by mouth in the morning. [facility] metFORMIN 1,000 mg tablet 2022-0 2- 00:00: 00 Yes [id number] 1000mg Take 1 tablet by mouth in the morning and 1 tablet in the evening. Take with meals. [facility] pioglitazon e 30 mg tablet 3-0 2- 00:00: 00 Yes [id number] 30mg Take 1 tablet by mouth in the morning. [facility] metFORMIN 1,000 mg tablet 2022-0 2- 00:00: 00 Yes [id number] 1000mg Take 1 tablet by mouth in the morning and 1 tablet in the evening. Take with meals. [facility] pioglitazon e 30 mg tablet 3-0 2- 00:00: 00 Yes [id number] 30mg Take 1 tablet by mouth in the morning. [facility] metFORMIN 1,000 mg tablet 2022-0 2- 00:00: 00 Yes [id number] 1000mg Take 1 tablet by mouth in the morning and 1 tablet in the evening. Take with meals. [facility] pioglitazon e 30 mg tablet 3-0 2- 00:00: 00 Yes [id number] 30mg Take 1 tablet by mouth in the morning. [facility] metFORMIN 1,000 mg tablet 3-0 2- 00:00: 00 Yes [id number] 1000mg Take 1 tablet by mouth in the morning and 1 tablet in the evening. Take with meals. [facility] pioglitazon e 30 mg tablet 3-0 2- 00:00: 00 Yes [id number] 30mg Take 1 tablet by mouth in the morning. [facility] metFORMIN 1,000 mg tablet 3-0 2- 00:00: 00 Yes [id number] 1000mg Take 1 tablet by mouth in the morning and 1 tablet in the evening. Take with meals. [facility] pioglitazon e 30 mg tablet 3-0 2- 00:00: 00 Yes [id number] 30mg Take 1 tablet by mouth in the morning. [facility] metFORMIN 1,000 mg tablet 2022-0 2- 00:00: 00 Yes [id number] 1000mg Take 1 tablet by mouth in the morning and 1 tablet in the evening. Take with meals. [facility] pioglitazon e 30 mg tablet 3-0 2- 00:00: 00 Yes [id number] 30mg Take 1 tablet by mouth in the morning. [facility] metFORMIN 1,000 mg tablet 2022-0 2- 00:00: 00 Yes [id number] 1000mg Take 1 tablet by mouth in the morning and 1 tablet in the evening. Take with meals. [facility] pioglitazon e 30 mg tablet 3-0 2- 00:00: 00 Yes [id number] 30mg Take 1 tablet by mouth in the morning. [facility] metFORMIN 1,000 mg tablet 2022-0 2- 00:00: 00 Yes [id number] 1000mg Take 1 tablet by mouth in the morning and 1 tablet in the evening. Take with meals. [facility] pioglitazon e 30 mg tablet 3-0 2- 00:00: 00 Yes [id number] 30mg Take 1 tablet by mouth in the morning. [facility] metFORMIN 1,000 mg tablet 3-0 2- 00:00: 00 Yes [id number] 1000mg Take 1 tablet by mouth in the morning and 1 tablet in the evening. Take with meals. [facility] pioglitazon e 30 mg tablet 3-0 2- 00:00: 00 Yes [id number] 30mg Take 1 tablet by mouth in the morning. [facility] metFORMIN 1,000 mg tablet 3-0 2- 00:00: 00 Yes [id number] 1000mg Take 1 tablet by mouth in the morning and 1 tablet in the evening. Take with meals. [facility] pioglitazon e 30 mg tablet 3-0 2- 00:00: 00 Yes [id number] 30mg Take 1 tablet by mouth in the morning. [facility] metFORMIN 1,000 mg tablet 3-0 2- 00:00: 00 Yes [id number] 1000mg Take 1 tablet by mouth in the morning and 1 tablet in the evening. Take with meals. [facility] pioglitazon e 30 mg tablet 3-0 2- 00:00: 00 Yes [id number] 30mg Take 1 tablet by mouth in the morning. [facility] metFORMIN 1,000 mg tablet 3-0 2- 00:00: 00 Yes [id number] 1000mg Take 1 tablet by mouth in the morning and 1 tablet in the evening. Take with meals. [facility] pioglitazon e 30 mg tablet 3-0 2- 00:00: 00 Yes [id number] 30mg Take 1 tablet by mouth in the morning. [facility] metFORMIN 1,000 mg tablet 2022-0 2- 00:00: 00 Yes [id number] 1000mg Take 1 tablet by mouth in the morning and 1 tablet in the evening. Take with meals. [facility] pioglitazon e 30 mg tablet 3-0 2- 00:00: 00 Yes [id number] 30mg Take 1 tablet by mouth in the morning. [facility] metFORMIN 1,000 mg tablet 3-0 2- 00:00: 00 Yes [id number] 1000mg Take 1 tablet by mouth in the morning and 1 tablet in the evening. Take with meals. [facility] pioglitazon e 30 mg tablet 3-0 2- 00:00: 00 Yes [id number] 30mg Take 1 tablet by mouth in the morning. [facility] metFORMIN 1,000 mg tablet 3-0 2- 00:00: 00 Yes [id number] 1000mg Take 1 tablet by mouth in the morning and 1 tablet in the evening. Take with meals. [facility] pioglitazon e 30 mg tablet 3-0 2- 00:00: 00 Yes [id number] 30mg Take 1 tablet by mouth in the morning. [facility] metFORMIN 1,000 mg tablet 3-0 2- 00:00: 00 Yes [id number] 1000mg Take 1 tablet by mouth in the morning and 1 tablet in the evening. Take with meals. [facility] pioglitazon e 30 mg tablet 3-0 2- 00:00: 00 Yes [id number] 30mg Take 1 tablet by mouth in the morning. [facility] metFORMIN 1,000 mg tablet 2022-0 2- 00:00: 00 Yes [id number] 1000mg Take 1 tablet by mouth in the morning and 1 tablet in the evening. Take with meals. [facility] pioglitazon e 30 mg tablet 3-0 2- 00:00: 00 Yes [id number] 30mg Take 1 tablet by mouth in the morning. [facility] metFORMIN 1,000 mg tablet 2022-0 2- 00:00: 00 Yes [id number] 1000mg Take 1 tablet by mouth in the morning and 1 tablet in the evening. Take with meals. [facility] pioglitazon e 30 mg tablet 3-0 2 00:00: 00 Yes [id number] 30mg Take 1 tablet by mouth in the morning. [facility] metFORMIN 1,000 mg tablet 3-0 2- 00:00: 00 Yes [id number] 1000mg Take 1 tablet by mouth in the morning and 1 tablet in the evening. Take with meals. [facility] pioglitazon e 30 mg tablet 3-0 2- 00:00: 00 Yes [id number] 30mg Take 1 tablet by mouth in the morning. [facility] metFORMIN 1,000 mg tablet 3-0 2- 00:00: 00 Yes [id number] 1000mg Take 1 tablet by mouth in the morning and 1 tablet in the evening. Take with meals. [facility] pioglitazon e 30 mg tablet 2023-0 2- 00:00: 00 Yes [id number] 30mg Take 1 tablet by mouth in the morning. [facility] metFORMIN 1,000 mg tablet 3-0 2- 00:00: 00 Yes [id number] 1000mg Take 1 tablet by mouth in the morning and 1 tablet in the evening. Take with meals. [facility] pioglitazon e 30 mg tablet 3-0 2- 00:00: 00 Yes [id number] 30mg Take 1 tablet by mouth in the morning. [facility] metFORMIN 1,000 mg tablet 3-0 2- 00:00: 00 Yes [id number] 1000mg Take 1 tablet by mouth in the morning and 1 tablet in the evening. Take with meals. [facility] pioglitazon e 30 mg tablet 3-0 2- 00:00: 00 Yes [id number] 30mg Take 1 tablet by mouth in the morning. [facility] metFORMIN 1,000 mg tablet 2022-0 2- 00:00: 00 Yes [id number] 1000mg Take 1 tablet by mouth in the morning and 1 tablet in the evening. Take with meals. [facility] pioglitazon e 30 mg tablet 3-0 2- 00:00: 00 Yes [id number] 30mg Take 1 tablet by mouth in the morning. [facility] metFORMIN 1,000 mg tablet 3-0 2- 00:00: 00 Yes [id number] 1000mg Take 1 tablet by mouth in the morning and 1 tablet in the evening. Take with meals. [facility] pioglitazon e 30 mg tablet 3-0 2- 00:00: 00 Yes [id number] 30mg Take 1 tablet by mouth in the morning. [facility] metFORMIN 1,000 mg tablet 3-0 2- 00:00: 00 Yes [id number] 1000mg Take 1 tablet by mouth in the morning and 1 tablet in the evening. Take with meals. [facility] pioglitazon e 30 mg tablet 3-0 2- 00:00: 00 Yes [id number] 30mg Take 1 tablet by mouth in the morning. [facility] metFORMIN 1,000 mg tablet 3-0 2- 00:00: 00 Yes [id number] 1000mg Take 1 tablet by mouth in the morning and 1 tablet in the evening. Take with meals. [facility] pioglitazon e 30 mg tablet 3-0 2- 00:00: 00 Yes [id number] 30mg Take 1 tablet by mouth in the morning. [facility] metFORMIN 1,000 mg tablet 2022-0 2- 00:00: 00 Yes [id number] 1000mg Take 1 tablet by mouth in the morning and 1 tablet in the evening. Take with meals. [facility] pioglitazon e 30 mg tablet 3-0 2- 00:00: 00 Yes [id number] 30mg Take 1 tablet by mouth in the morning. [facility] metFORMIN 1,000 mg tablet 2022-0 2- 00:00: 00 Yes [id number] 1000mg Take 1 tablet by mouth in the morning and 1 tablet in the evening. Take with meals. [facility] pioglitazon e 30 mg tablet 3-0 2- 00:00: 00 Yes [id number] 30mg Take 1 tablet by mouth in the morning. [facility] metFORMIN 1,000 mg tablet 2022-0 2- 00:00: 00 Yes [id number] 1000mg Take 1 tablet by mouth in the morning and 1 tablet in the evening. Take with meals. [facility] pioglitazon e 30 mg tablet 3-0 2- 00:00: 00 Yes [id number] 30mg Take 1 tablet by mouth in the morning. [facility] metFORMIN 1,000 mg tablet 3-0 2- 00:00: 00 Yes [id number] 1000mg Take 1 tablet by mouth in the morning and 1 tablet in the evening. Take with meals. [facility] pioglitazon e 30 mg tablet 3-0 2- 00:00: 00 Yes [id number] 30mg Take 1 tablet by mouth in the morning. [facility] metFORMIN 1,000 mg tablet 2023-0 2- 00:00: 00 Yes [id number] 1000mg Take 1 tablet by mouth in the morning and 1 tablet in the evening. Take with meals. [facility] pioglitazon e 30 mg tablet 2022-0 2- 00:00: 00 Yes [id number] 30mg Take 1 tablet by mouth in the morning. [facility] metFORMIN 1,000 mg tablet 2022-0 2 00:00: 00 Yes [id number] 1000mg Take 1 tablet by mouth in the morning and 1 tablet in the evening. Take with meals. [facility] pioglitazon e 30 mg tablet 2022-0 2 00:00: 00 Yes [id number] 30mg Take 1 tablet by mouth in the morning. [facility] metFORMIN 1,000 mg tablet 2022-0 09-13 00:00: 00 Yes [id number] 1000mg Take 1 tablet by mouth in the morning and 1 tablet in the evening. Take with meals. [facility] pioglitazon e 30 mg tablet 2022-0 2 00:00: 00 Yes [id number] 30mg Take 1 tablet by mouth in the morning. [facility] metFORMIN 1,000 mg tablet 2022-0 09-13 00:00: 00 Yes [id number] 1000mg Take 1 tablet by mouth in the morning and 1 tablet in the evening. Take with meals. [facility] pioglitazon e 30 mg tablet 2022-0 2 00:00: 00 Yes [id number] 30mg Take 1 tablet by mouth in the morning. [facility] metFORMIN 1,000 mg tablet 2022-0 2- 00:00: 00 Yes [id number] 1000mg Take 1 tablet by mouth in the morning and 1 tablet in the evening. Take with meals. [facility] pioglitazon e 30 mg tablet 3-0 2- 00:00: 00 Yes [id number] 30mg Take 1 tablet by mouth in the morning. [facility] metFORMIN 1,000 mg tablet 3-0 2- 00:00: 00 Yes [id number] 1000mg Take 1 tablet by mouth in the morning and 1 tablet in the evening. Take with meals. [facility] pioglitazon e 30 mg tablet 3-0 2- 00:00: 00 Yes [id number] 30mg Take 1 tablet by mouth in the morning. [facility] metFORMIN 1,000 mg tablet 3-0 2- 00:00: 00 Yes [id number] 1000mg Take 1 tablet by mouth in the morning and 1 tablet in the evening. Take with meals. [facility] pioglitazon e 30 mg tablet 3-0 2- 00:00: 00 Yes [id number] 30mg Take 1 tablet by mouth in the morning. [facility] metFORMIN 1,000 mg tablet 2022-0 2- 00:00: 00 Yes [id number] 1000mg Take 1 tablet by mouth in the morning and 1 tablet in the evening. Take with meals. [facility] pioglitazon e 30 mg tablet 3-0 2- 00:00: 00 Yes [id number] 30mg Take 1 tablet by mouth in the morning. [facility] metFORMIN 1,000 mg tablet 2022-0 2- 00:00: 00 Yes [id number] 1000mg Take 1 tablet by mouth in the morning and 1 tablet in the evening. Take with meals. [facility] pioglitazon e 30 mg tablet 3-0 2- 00:00: 00 Yes [id number] 30mg Take 1 tablet by mouth in the morning. [facility] metFORMIN 1,000 mg tablet 3-0 2- 00:00: 00 Yes [id number] 1000mg Take 1 tablet by mouth in the morning and 1 tablet in the evening. Take with meals. [facility] pioglitazon e 30 mg tablet 3-0 2- 00:00: 00 06-11 00:00 :00 No [id number] 30mg Take 1 tablet by mouth in the morning. [facility] metFORMIN 1,000 mg tablet 3-0 2- 00:00: 00 06-11 00:00 :00 No [id number] 1000mg Take 1 tablet by mouth in the morning and 1 tablet in the evening. Take with meals. [facility] pioglitazon e 30 mg tablet 0 2-01 00:00: 06-11 00:00 :00 No [id number] 30mg Take 1 tablet by mouth in the morning. [facility] metFORMIN 1,000 mg tablet 0 2-01 00:00: 06-11 00:00 :00 No [id number] 1000mg Take 1 tablet by mouth in the morning and 1 tablet in the evening. Take with meals. [facility] semaglutide (OZEMPIC) 1 mg/dose (4 mg/3 mL) PnIj 2022-0 2- 00:00: 00 10-26 00:00 :00 No [id number] 1mg inject 1 mg under the skin weekly. [facility] semaglutide (OZEMPIC) 1 mg/dose (4 mg/3 mL) PnIj 2022-0 2- 00:00: 00 10-26 00:00 :00 No [id number] 1mg inject 1 mg under the skin weekly. [facility] semaglutide (OZEMPIC) 1 mg/dose (4 mg/3 mL) PnIj 2022-0 2- 00:00: 00 10-26 00:00 :00 No [id number] 1mg inject 1 mg under the skin weekly. [facility] semaglutide (OZEMPIC) 1 mg/dose (4 mg/3 mL) PnIj 2022-0 2-01 00:00: 00 10-26 00:00 :00 No [id number] 1mg inject 1 mg under the skin weekly. [facility] semaglutide (OZEMPIC) 1 mg/dose (4 mg/3 mL) PnIj 2022-0 2-01 00:00: 00 10-26 00:00 :00 No [id number] 1mg inject 1 mg under the skin weekly. [facility] pioglitazon e 30 mg tablet 0 2-01 00:00: 00 09-13 00:00 :00 No [id number] 30mg Take 1 tablet by mouth in the morning. [facility] tirzepatide (MOUNJARO) 2.5 mg/0.5 mL PnIj 0 2- 00:00: 00 09-13 00:00 :00 No [id number] 2.5mg inject 2.5 mg under the skin weekly. [facility] pioglitazon e 30 mg tablet 09-13 00:00: 00 09-13 00:00 :00 No [id number] 30mg Take 1 tablet by mouth in the morning. [facility] pioglitazon e 30 mg tablet 09-13 00:00: 00 09-13 00:00 :00 No [id number] 30mg Take 1 tablet by mouth in the morning. [facility] tirzepatide (MOUNJARO) 2.5 mg/0.5 mL PnIj 09-13 00:00: 00 09-13 00:00 :00 No [id number] 2.5mg inject 2.5 mg under the skin weekly. [facility] pioglitazon e 30 mg tablet 09-13 00:00: 00 09-13 00:00 :00 No [id number] 30mg Take 1 tablet by mouth in the morning. [facility] ONDANSETRON HCL ORAL 0 - 09:40: 30 Yes Take by mouth. [facility] ONDANSETRON HCL ORAL 2022-0 09-12 09:40: 30 Yes Take by mouth. [facility] ONDANSETRON HCL ORAL 2022-0 09-12 09:40: 30 Yes Take by mouth. [facility] ONDANSETRON HCL ORAL 2022-0 - 09:40: 30 Yes Take by mouth. [facility] ONDANSETRON HCL ORAL 2022-0 - 09:40: 30 Yes Take by mouth. [facility] ONDANSETRON HCL ORAL 2022-0 09-12 09:40: 30 Yes Take by mouth. [facility] ONDANSETRON HCL ORAL 0 09-12 09:40: 30 Yes Take by mouth. [facility] ONDANSETRON HCL ORAL 0 09-12 09:40: 30 Yes Take by mouth. [facility] ONDANSETRON HCL ORAL 30 09-12 09:40: 30 Yes Take by mouth. [facility] [place] ONDANSETRON HCL ORAL 0 09-12 09:40: 30 Yes Take by mouth. [facility] ONDANSETRON HCL ORAL 3-0 09-12 09:40: 30 Yes Take by mouth. [facility] ONDANSETRON HCL ORAL 0 09-12 09:40: 30 Yes Take by mouth. [facility] [place] ONDANSETRON HCL ORAL 0 09-12 09:40: 30 Yes Take by mouth. [facility] ONDANSETRON HCL ORAL 0 09-12 09:40: 30 Yes Take by mouth. [facility] ONDANSETRON HCL ORAL 0 09-12 09:40: 30 Yes Take by mouth. [facility] [place] ONDANSETRON HCL ORAL 0 09-12 09:40: 30 Yes Take by mouth. [facility] [place] ONDANSETRON HCL ORAL 0 09-12 09:40: 30 Yes Take by mouth. [facility] ONDANSETRON HCL ORAL 0 09-12 09:40: 30 Yes Take by mouth. [facility] ONDANSETRON HCL ORAL 0 09-12 09:40: 30 Yes Take by mouth. [facility] ONDANSETRON HCL ORAL 30 09-12 09:40: 30 Yes Take by mouth. [facility] [place] ONDANSETRON HCL ORAL 0 09-12 09:40: 30 Yes Take by mouth. [facility] ONDANSETRON HCL ORAL 30 09-12 09:40: 30 Yes Take by mouth. [facility] ONDANSETRON HCL ORAL 30 09-12 09:40: 30 Yes Take by mouth. [facility] [place] ONDANSETRON HCL ORAL 3-0 09-12 09:40: 30 Yes Take by mouth. [facility] ONDANSETRON HCL ORAL 0 09-12 09:40: 30 Yes Take by mouth. [facility] ONDANSETRON HCL ORAL 30 09-12 09:40: 30 Yes Take by mouth. [facility] [place] ONDANSETRON HCL ORAL 0 09-12 09:40: 30 Yes Take by mouth. [facility] ONDANSETRON HCL ORAL 3-0 09-12 09:40: 30 Yes Take by mouth. [facility] ONDANSETRON HCL ORAL 3-0 09-12 09:40: 30 Yes Take by mouth. [facility] [place] ONDANSETRON HCL ORAL 0 09-12 09:40: 30 Yes Take by mouth. [facility] ONDANSETRON HCL ORAL 0 09-12 09:40: 30 Yes Take by mouth. [facility] ONDANSETRON HCL ORAL 0 09-12 09:40: 30 Yes Take by mouth. [facility] [place] ONDANSETRON HCL ORAL 0 09-12 09:40: 30 Yes Take by mouth. [facility] [place] ONDANSETRON HCL ORAL 0 09-12 09:40: 30 Yes Take by mouth. [facility] ONDANSETRON HCL ORAL 0 09-12 09:40: 30 Yes Take by mouth. [facility] ONDANSETRON HCL ORAL 3-0 09-12 09:40: 30 Yes Take by mouth. [facility] [place] ONDANSETRON HCL ORAL 3-0 09-12 09:40: 30 Yes Take by mouth. [facility] [place] ONDANSETRON HCL ORAL 3-0 09-12 09:40: 30 Yes Take by mouth. [facility] ONDANSETRON HCL ORAL 3-0 09-12 09:40: 30 Yes Take by mouth. [facility] ONDANSETRON HCL ORAL 0 09-12 09:40: 30 Yes Take by mouth. [facility] ONDANSETRON HCL ORAL 2022-0 09-12 09:40: 30 Yes Take by mouth. [facility] ONDANSETRON HCL ORAL 0 09-12 09:40: 30 Yes Take by mouth. [facility] ONDANSETRON HCL ORAL 0 09-12 09:40: 30 Yes Take by mouth. [facility] ONDANSETRON HCL ORAL 0 09-12 09:40: 30 Yes Take by mouth. [facility] ONDANSETRON HCL ORAL 0 09-12 09:40: 30 Yes Take by mouth. [facility] ONDANSETRON HCL ORAL 0 09-12 09:40: 30 Yes Take by mouth. [facility] ONDANSETRON HCL ORAL 0 09-12 09:40: 30 Yes Take by mouth. [facility] ONDANSETRON HCL ORAL 0 09-12 09:40: 30 Yes Take by mouth. [facility] ONDANSETRON HCL ORAL 09-12 09:40: 30 Yes Take by mouth. [facility] ONDANSETRON HCL ORAL 09-12 09:40: 30 Yes Take by mouth. [facility] ONDANSETRON HCL ORAL 0 09-12 09:40: 30 Yes Take by mouth. [facility] ONDANSETRON HCL ORAL 09-12 09:40: 30 Yes Take by mouth. [facility] LORazepam (ATIVAN) tablet 1 mg 08-16 20:15: 00 08-16 19:20 :00 No [id number] 1mg 1 mg, Oral, ONCE, 1 dose, On Sun08/16/22 at 1415, Routine [facility] LORazepam (ATIVAN) tablet 1 mg 08-16 20:15: 00 08-16 19:20 :00 No [id number] 1mg 1 mg, Oral, ONCE, 1 dose, On Sun08/16/22 at 1415, [facility] JARDIANCE 25 mg Tab 0 08-16 00:00: 00 Yes [id number] TAKE 1 TABLET BY MOUTH ONCE DAILY IN THE MORNING [facility] HYDROXYZINE 25 mg tablet 2022-0 08-16 00:00: 00 Yes [id number] TAKE 1 TABLET BY MOUTH EVERY 8 HOURS NEEDED FOR ITCHING [facility] PROMETHAZIN E 12.5 mg tablet 0 08-16 00:00: 00 Yes [id number] TAKE 2 TABLETS BY MOUTH EVERY 6 HOURS NEEDED FOR VERTIGO [facility] JARDIANCE 25 mg Tab 2022-0 08-16 00:00: 00 Yes [id number] TAKE 1 TABLET BY MOUTH ONCE DAILY IN THE MORNING [facility] HYDROXYZINE 25 mg tablet 2022-0 08-16 00:00: 00 Yes [id number] TAKE 1 TABLET BY MOUTH EVERY 8 HOURS NEEDED FOR ITCHING [facility] PROMETHAZIN E 12.5 mg tablet 0 08-16 00:00: 00 Yes [id number] TAKE 2 TABLETS BY MOUTH EVERY 6 HOURS NEEDED FOR VERTIGO [facility] JARDIANCE 25 mg Tab 2022-0 08-16 00:00: 00 Yes [id number] TAKE 1 TABLET BY MOUTH ONCE DAILY IN THE MORNING Univers ity [facility] HYDROXYZINE 25 mg tablet 2022-0 08-16 00:00: 00 Yes [id number] TAKE 1 TABLET BY MOUTH EVERY 8 HOURS NEEDED FOR ITCHING Univers ity [facility] PROMETHAZIN E 12.5 mg tablet 0 08-16 00:00: 00 Yes [id number] TAKE 2 TABLETS BY MOUTH EVERY 6 HOURS NEEDED FOR VERTIGO Univers y [facility] JARDIANCE 25 mg Tab 2022-0 08-16 00:00: 00 Yes [id number] TAKE 1 TABLET BY MOUTH ONCE DAILY IN THE MORNING Univers ity [facility] HYDROXYZINE 25 mg tablet 2022-0 08-16 00:00: 00 Yes [id number] TAKE 1 TABLET BY MOUTH EVERY 8 HOURS NEEDED FOR ITCHING [facility] PROMETHAZIN E 12.5 mg tablet 2022-0 08-16 00:00: 00 Yes [id number] TAKE 2 TABLETS BY MOUTH EVERY 6 HOURS NEEDED FOR VERTIGO Univers ity [facility] JARDIANCE 25 mg Tab 0 08-16 00:00: 00 Yes [id number] TAKE 1 TABLET BY MOUTH ONCE DAILY IN THE MORNING Univers ity [facility] HYDROXYZINE 25 mg tablet 0 08-16 00:00: 00 Yes [id number] TAKE 1 TABLET BY MOUTH EVERY 8 HOURS NEEDED FOR ITCHING Univers ity [facility] PROMETHAZIN E 12.5 mg tablet 0 08-16 00:00: 00 Yes [id number] TAKE 2 TABLETS BY MOUTH EVERY 6 HOURS NEEDED FOR VERTIGO Univers ity [facility] JARDIANCE 25 mg Tab 0 08-16 00:00: 00 Yes [id number] TAKE 1 TABLET BY MOUTH ONCE DAILY IN THE MORNING Univers ity [facility] HYDROXYZINE 25 mg tablet 0 08-16 00:00: 00 Yes [id number] TAKE 1 TABLET BY MOUTH EVERY 8 HOURS NEEDED FOR ITCHING Univers ity [facility] PROMETHAZIN E 12.5 mg tablet 0 08-16 00:00: 00 Yes [id number] TAKE 2 TABLETS BY MOUTH EVERY 6 HOURS NEEDED FOR VERTIGO Univers ity [facility] JARDIANCE 25 mg Tab 08-16 00:00: 00 Yes [id number] TAKE 1 TABLET BY MOUTH ONCE DAILY IN THE MORNING Univers ity [facility] HYDROXYZINE 25 mg tablet 0 08-16 00:00: 00 Yes [id number] TAKE 1 TABLET BY MOUTH EVERY 8 HOURS NEEDED FOR ITCHING Univers ity [facility] PROMETHAZIN E 12.5 mg tablet 0 08-16 00:00: 00 Yes [id number] TAKE 2 TABLETS BY MOUTH EVERY 6 HOURS NEEDED FOR VERTIGO Univers ity [facility] JARDIANCE 25 mg Tab 0 08-16 00:00: 00 Yes [id number] TAKE 1 TABLET BY MOUTH ONCE DAILY IN THE MORNING Univers ity [facility] HYDROXYZINE 25 mg tablet 2022-0 08-16 00:00: 00 Yes [id number] TAKE 1 TABLET BY MOUTH EVERY 8 HOURS NEEDED FOR ITCHING Univers ity [facility] PROMETHAZIN E 12.5 mg tablet 0 -04 00:00: 00 Yes [id number] TAKE 2 TABLETS BY MOUTH EVERY 6 HOURS NEEDED FOR VERTIGO Univers ity [facility] JARDIANCE 25 mg Tab 0 - 00:00: 00 Yes [id number] TAKE 1 TABLET BY MOUTH ONCE DAILY IN THE MORNING Univers ity [facility] HYDROXYZINE 25 mg tablet 2022-0 -04 00:00: 00 Yes [id number] TAKE 1 TABLET BY MOUTH EVERY 8 HOURS NEEDED FOR ITCHING [facility] PROMETHAZIN E 12.5 mg tablet 0 - 00:00: 00 Yes [id number] TAKE 2 TABLETS BY MOUTH EVERY 6 HOURS NEEDED FOR VERTIGO [facility] JARDIANCE 25 mg Tab 0 - 00:00: 00 Yes [id number] TAKE 1 TABLET BY MOUTH ONCE DAILY IN THE MORNING Univers ity [facility] HYDROXYZINE 25 mg tablet 2022-0 - 00:00: 00 Yes [id number] TAKE 1 TABLET BY MOUTH EVERY 8 HOURS NEEDED FOR ITCHING Univers ity [facility] PROMETHAZIN E 12.5 mg tablet 2022-0 08-16 00:00: 00 Yes [id number] TAKE 2 TABLETS BY MOUTH EVERY 6 HOURS NEEDED FOR VERTIGO Univers [facility] JARDIANCE 25 mg Tab 0 - 00:00: 00 Yes [id number] TAKE 1 TABLET BY MOUTH ONCE DAILY IN THE MORNING Univers ity [facility] HYDROXYZINE 25 mg tablet 2022-0 -04 00:00: 00 Yes [id number] TAKE 1 TABLET BY MOUTH EVERY 8 HOURS NEEDED FOR ITCHING Univers ity [facility] PROMETHAZIN E 12.5 mg tablet 2022-0 -04 00:00: 00 Yes [id number] TAKE 2 TABLETS BY MOUTH EVERY 6 HOURS NEEDED FOR VERTIGO [facility] JARDIANCE 25 mg Tab 0 -04 00:00: 00 Yes [id number] TAKE 1 TABLET BY MOUTH ONCE DAILY IN THE MORNING Univers ity [facility] HYDROXYZINE 25 mg tablet 3-0 -04 00:00: 00 Yes [id number] TAKE 1 TABLET BY MOUTH EVERY 8 HOURS NEEDED FOR ITCHING Univers ity [facility] PROMETHAZIN E 12.5 mg tablet 0 08-16 00:00: 00 Yes [id number] TAKE 2 TABLETS BY MOUTH EVERY 6 HOURS NEEDED FOR VERTIGO Univers ity [facility] JARDIANCE 25 mg Tab 0 08-16 00:00: 00 Yes [id number] TAKE 1 TABLET BY MOUTH ONCE DAILY IN THE MORNING Univers ity [facility] HYDROXYZINE 25 mg tablet 2022-0 08-16 00:00: 00 Yes [id number] TAKE 1 TABLET BY MOUTH EVERY 8 HOURS NEEDED FOR ITCHING [facility] PROMETHAZIN E 12.5 mg tablet 0 08-16 00:00: 00 Yes [id number] TAKE 2 TABLETS BY MOUTH EVERY 6 HOURS NEEDED FOR VERTIGO [facility] JARDIANCE 25 mg Tab 0 08-16 00:00: 00 Yes [id number] TAKE 1 TABLET BY MOUTH ONCE DAILY IN THE MORNING Univers ity [facility] HYDROXYZINE 25 mg tablet 2022-0 08-16 00:00: 00 Yes [id number] TAKE 1 TABLET BY MOUTH EVERY 8 HOURS NEEDED FOR ITCHING [facility] PROMETHAZIN E 12.5 mg tablet 0 08-16 00:00: 00 Yes [id number] TAKE 2 TABLETS BY MOUTH EVERY 6 HOURS NEEDED FOR VERTIGO Univers [facility] JARDIANCE 25 mg Tab 08-16 00:00: 00 Yes [id number] TAKE 1 TABLET BY MOUTH ONCE DAILY IN THE MORNING Univers ity [facility] HYDROXYZINE 25 mg tablet 2022-0 08-16 00:00: 00 Yes [id number] TAKE 1 TABLET BY MOUTH EVERY 8 HOURS NEEDED FOR ITCHING [facility] PROMETHAZIN E 12.5 mg tablet 0 08-16 00:00: 00 Yes [id number] TAKE 2 TABLETS BY MOUTH EVERY 6 HOURS NEEDED FOR VERTIGO [facility] JARDIANCE 25 mg Tab 0 08-16 00:00: 00 Yes [id number] TAKE 1 TABLET BY MOUTH ONCE DAILY IN THE MORNING Univers ity [facility] HYDROXYZINE 25 mg tablet 2022-0 - 00:00: 00 Yes [id number] TAKE 1 TABLET BY MOUTH EVERY 8 HOURS NEEDED FOR ITCHING Univers ity [facility] PROMETHAZIN E 12.5 mg tablet 2022-0 08-16 00:00: 00 Yes [id number] TAKE 2 TABLETS BY MOUTH EVERY 6 HOURS NEEDED FOR VERTIGO Univers ity [facility] JARDIANCE 25 mg Tab 2022-0 08-16 00:00: 00 Yes [id number] TAKE 1 TABLET BY MOUTH ONCE DAILY IN THE MORNING Univers ity [facility] HYDROXYZINE 25 mg tablet 2022-0 08-16 00:00: 00 Yes [id number] TAKE 1 TABLET BY MOUTH EVERY 8 HOURS NEEDED FOR ITCHING Univers ity [facility] PROMETHAZIN E 12.5 mg tablet 2022-0 08-16 00:00: 00 Yes [id number] TAKE 2 TABLETS BY MOUTH EVERY 6 HOURS NEEDED FOR VERTIGO Univers ity [facility] JARDIANCE 25 mg Tab 2022-0 08-16 00:00: 00 Yes [id number] TAKE 1 TABLET BY MOUTH ONCE DAILY IN THE MORNING Univers ity [facility] HYDROXYZINE 25 mg tablet 2022-0 08-16 00:00: 00 Yes [id number] TAKE 1 TABLET BY MOUTH EVERY 8 HOURS NEEDED FOR ITCHING Univers ity [facility] PROMETHAZIN E 12.5 mg tablet 2022-0 08-16 00:00: 00 Yes [id number] TAKE 2 TABLETS BY MOUTH EVERY 6 HOURS NEEDED FOR VERTIGO Univers ity [facility] JARDIANCE 25 mg Tab 0 08-16 00:00: 00 Yes [id number] TAKE 1 TABLET BY MOUTH ONCE DAILY IN THE MORNING Univers ity [facility] PROMETHAZIN E 12.5 mg tablet 2022-0 08-16 00:00: 00 Yes [id number] TAKE 2 TABLETS BY MOUTH EVERY 6 HOURS NEEDED FOR VERTIGO Univers ity [facility] JARDIANCE 25 mg Tab 2022-0 08-16 00:00: 00 Yes [id number] TAKE 1 TABLET BY MOUTH ONCE DAILY IN THE MORNING Univers ity [facility] PROMETHAZIN E 12.5 mg tablet 2022-0 08-16 00:00: 00 Yes [id number] TAKE 2 TABLETS BY MOUTH EVERY 6 HOURS NEEDED FOR VERTIGO Univers ity [facility] JARDIANCE 25 mg Tab 0 -04 00:00: 00 Yes [id number] TAKE 1 TABLET BY MOUTH ONCE DAILY IN THE MORNING Univers [facility] PROMETHAZIN E 12.5 mg tablet 3-0 -04 00:00: 00 Yes [id number] TAKE 2 TABLETS BY MOUTH EVERY 6 HOURS NEEDED FOR VERTIGO Univers [facility] JARDIANCE 25 mg Tab 3-0 -04 00:00: 00 Yes [id number] TAKE 1 TABLET BY MOUTH ONCE DAILY IN THE MORNING [facility] PROMETHAZIN E 12.5 mg tablet 3-0 -04 00:00: 00 Yes [id number] TAKE 2 TABLETS BY MOUTH EVERY 6 HOURS NEEDED FOR VERTIGO Univers [facility] JARDIANCE 25 mg Tab 3-0 -04 00:00: 00 Yes [id number] TAKE 1 TABLET BY MOUTH ONCE DAILY IN THE MORNING Univers [facility] PROMETHAZIN E 12.5 mg tablet 3-0 -04 00:00: 00 Yes [id number] TAKE 2 TABLETS BY MOUTH EVERY 6 HOURS NEEDED FOR VERTIGO Univers [facility] JARDIANCE 25 mg Tab 3-0 -04 00:00: 00 Yes [id number] TAKE 1 TABLET BY MOUTH ONCE DAILY IN THE MORNING [facility] PROMETHAZIN E 12.5 mg tablet 3-0 -04 00:00: 00 Yes [id number] TAKE 2 TABLETS BY MOUTH EVERY 6 HOURS NEEDED FOR VERTIGO Univers [facility] JARDIANCE 25 mg Tab 3-0 -04 00:00: 00 Yes [id number] TAKE 1 TABLET BY MOUTH ONCE DAILY IN THE MORNING Univers [facility] PROMETHAZIN E 12.5 mg tablet 3-0 -04 00:00: 00 Yes [id number] TAKE 2 TABLETS BY MOUTH EVERY 6 HOURS NEEDED FOR VERTIGO Univers [facility] JARDIANCE 25 mg Tab 3-0 -04 00:00: 00 Yes [id number] TAKE 1 TABLET BY MOUTH ONCE DAILY IN THE MORNING Univers [facility] PROMETHAZIN E 12.5 mg tablet 3-0 -04 00:00: 00 Yes [id number] TAKE 2 TABLETS BY MOUTH EVERY 6 HOURS NEEDED FOR VERTIGO [facility] JARDIANCE 25 mg Tab 2022-0 04 00:00: 00 Yes [id number] TAKE 1 TABLET BY MOUTH ONCE DAILY IN THE MORNING Univers ity [facility] PROMETHAZIN E 12.5 mg tablet 2022-0 -04 00:00: 00 Yes [id number] TAKE 2 TABLETS BY MOUTH EVERY 6 HOURS NEEDED FOR VERTIGO [facility] JARDIANCE 25 mg Tab 2022-0 - 00:00: 00 Yes [id number] TAKE 1 TABLET BY MOUTH ONCE DAILY IN THE MORNING Univers ity [facility] PROMETHAZIN E 12.5 mg tablet 2022-0 -04 00:00: 00 Yes [id number] TAKE 2 TABLETS BY MOUTH EVERY 6 HOURS NEEDED FOR VERTIGO Univers [facility] JARDIANCE 25 mg Tab 2022-0 - 00:00: 00 Yes [id number] TAKE 1 TABLET BY MOUTH ONCE DAILY IN THE MORNING Univers ity [facility] PROMETHAZIN E 12.5 mg tablet 2022-0 - 00:00: 00 Yes [id number] TAKE 2 TABLETS BY MOUTH EVERY 6 HOURS NEEDED FOR VERTIGO Univers [facility] JARDIANCE 25 mg Tab 2022-0 -04 00:00: 00 Yes [id number] TAKE 1 TABLET BY MOUTH ONCE DAILY IN THE MORNING Univers [facility] PROMETHAZIN E 12.5 mg tablet 2022-0 08-16 00:00: 00 Yes [id number] TAKE 2 TABLETS BY MOUTH EVERY 6 HOURS NEEDED FOR VERTIGO [facility] JARDIANCE 25 mg Tab 0 -04 00:00: 00 Yes [id number] TAKE 1 TABLET BY MOUTH ONCE DAILY IN THE MORNING Univers ity [facility] PROMETHAZIN E 12.5 mg tablet 3-0 -04 00:00: 00 Yes [id number] TAKE 2 TABLETS BY MOUTH EVERY 6 HOURS NEEDED FOR VERTIGO [facility] JARDIANCE 25 mg Tab 2022-0 -04 00:00: 00 Yes [id number] TAKE 1 TABLET BY MOUTH ONCE DAILY IN THE MORNING Univers ity [facility] PROMETHAZIN E 12.5 mg tablet 3-0 -04 00:00: 00 Yes [id number] TAKE 2 TABLETS BY MOUTH EVERY 6 HOURS NEEDED FOR VERTIGO Univers ity [facility] JARDIANCE 25 mg Tab 2022-0 -04 00:00: 00 Yes [id number] TAKE 1 TABLET BY MOUTH ONCE DAILY IN THE MORNING Univers ity [facility] PROMETHAZIN E 12.5 mg tablet 2022-0 - 00:00: 00 Yes [id number] TAKE 2 TABLETS BY MOUTH EVERY 6 HOURS NEEDED FOR VERTIGO Univers ity [facility] JARDIANCE 25 mg Tab 2022-0 -04 00:00: 00 Yes [id number] TAKE 1 TABLET BY MOUTH ONCE DAILY IN THE MORNING Univers ity [facility] PROMETHAZIN E 12.5 mg tablet 2022-0 - 00:00: 00 Yes [id number] TAKE 2 TABLETS BY MOUTH EVERY 6 HOURS NEEDED FOR VERTIGO [facility] JARDIANCE 25 mg Tab 2022-0 - 00:00: 00 Yes [id number] TAKE 1 TABLET BY MOUTH ONCE DAILY IN THE MORNING Univers ity [facility] PROMETHAZIN E 12.5 mg tablet 2022-0 04 00:00: 00 Yes [id number] TAKE 2 TABLETS BY MOUTH EVERY 6 HOURS NEEDED FOR VERTIGO Univers ity [facility] JARDIANCE 25 mg Tab 0 - 00:00: 00 Yes [id number] TAKE 1 TABLET BY MOUTH ONCE DAILY IN THE MORNING Univers ity [facility] PROMETHAZIN E 12.5 mg tablet 2022-0 08-16 00:00: 00 Yes [id number] TAKE 2 TABLETS BY MOUTH EVERY 6 HOURS NEEDED FOR VERTIGO Univers ity [facility] JARDIANCE 25 mg Tab 0 -04 00:00: 00 Yes [id number] TAKE 1 TABLET BY MOUTH ONCE DAILY IN THE MORNING Univers ity [facility] PROMETHAZIN E 12.5 mg tablet 2022-0 -04 00:00: 00 Yes [id number] TAKE 2 TABLETS BY MOUTH EVERY 6 HOURS NEEDED FOR VERTIGO Univers ity [facility] JARDIANCE 25 mg Tab 2022-0 -04 00:00: 00 Yes [id number] TAKE 1 TABLET BY MOUTH ONCE DAILY IN THE MORNING Univers ity [facility] PROMETHAZIN E 12.5 mg tablet 2022-0 04 00:00: 00 Yes [id number] TAKE 2 TABLETS BY MOUTH EVERY 6 HOURS NEEDED FOR VERTIGO Univers ity [facility] JARDIANCE 25 mg Tab 3-0 - 00:00: 00 Yes [id number] TAKE 1 TABLET BY MOUTH ONCE DAILY IN THE MORNING Univers ity [facility] PROMETHAZIN E 12.5 mg tablet 3-0 08-16 00:00: 00 Yes [id number] TAKE 2 TABLETS BY MOUTH EVERY 6 HOURS NEEDED FOR VERTIGO Univers ity [facility] JARDIANCE 25 mg Tab 3-0 - 00:00: 00 Yes [id number] TAKE 1 TABLET BY MOUTH ONCE DAILY IN THE MORNING Univers ity [facility] PROMETHAZIN E 12.5 mg tablet 3-0 08-16 00:00: 00 Yes [id number] TAKE 2 TABLETS BY MOUTH EVERY 6 HOURS NEEDED FOR VERTIGO Univers ity [facility] JARDIANCE 25 mg Tab 3-0 08-16 00:00: 00 Yes [id number] TAKE 1 TABLET BY MOUTH ONCE DAILY IN THE MORNING Univers ity [facility] PROMETHAZIN E 12.5 mg tablet 2022-0 08-16 00:00: 00 Yes [id number] TAKE 2 TABLETS BY MOUTH EVERY 6 HOURS NEEDED FOR VERTIGO [facility] JARDIANCE 25 mg Tab 2022-0 08-16 00:00: 00 Yes [id number] TAKE 1 TABLET BY MOUTH ONCE DAILY IN THE MORNING Univers ity [facility] PROMETHAZIN E 12.5 mg tablet 2022-0 08-16 00:00: 00 Yes [id number] TAKE 2 TABLETS BY MOUTH EVERY 6 HOURS NEEDED FOR VERTIGO [facility] JARDIANCE 25 mg Tab 3-0 -04 00:00: 00 Yes [id number] TAKE 1 TABLET BY MOUTH ONCE DAILY IN THE MORNING Univers ity [facility] PROMETHAZIN E 12.5 mg tablet 3-0 -04 00:00: 00 Yes [id number] TAKE 2 TABLETS BY MOUTH EVERY 6 HOURS NEEDED FOR VERTIGO Univers ity [facility] JARDIANCE 25 mg Tab 3-0 -04 00:00: 00 Yes [id number] TAKE 1 TABLET BY MOUTH ONCE DAILY IN THE MORNING Univers it [facility] PROMETHAZIN E 12.5 mg tablet 3-0 04 00:00: 00 Yes [id number] TAKE 2 TABLETS BY MOUTH EVERY 6 HOURS NEEDED FOR VERTIGO Univers ity [facility] JARDIANCE 25 mg Tab 2022-0 - 00:00: 00 Yes [id number] TAKE 1 TABLET BY MOUTH ONCE DAILY IN THE MORNING Univers ity [facility] PROMETHAZIN E 12.5 mg tablet 3-0 08-16 00:00: 00 Yes [id number] TAKE 2 TABLETS BY MOUTH EVERY 6 HOURS NEEDED FOR VERTIGO [facility] JARDIANCE 25 mg Tab 3-0 08-16 00:00: 00 Yes [id number] TAKE 1 TABLET BY MOUTH ONCE DAILY IN THE MORNING Univers ity [facility] PROMETHAZIN E 12.5 mg tablet 3-0 08-16 00:00: 00 Yes [id number] TAKE 2 TABLETS BY MOUTH EVERY 6 HOURS NEEDED FOR VERTIGO Univers ity [facility] JARDIANCE 25 mg Tab 3-0 - 00:00: 00 Yes [id number] TAKE 1 TABLET BY MOUTH ONCE DAILY IN THE MORNING Univers ity [facility] PROMETHAZIN E 12.5 mg tablet 3-0 08-16 00:00: 00 Yes [id number] TAKE 2 TABLETS BY MOUTH EVERY 6 HOURS NEEDED FOR VERTIGO [facility] JARDIANCE 25 mg Tab 2022-0 08-16 00:00: 00 Yes [id number] TAKE 1 TABLET BY MOUTH ONCE DAILY IN THE MORNING Univers ity [facility] PROMETHAZIN E 12.5 mg tablet 3-0 04 00:00: 00 Yes [id number] TAKE 2 TABLETS BY MOUTH EVERY 6 HOURS NEEDED FOR VERTIGO [facility] JARDIANCE 25 mg Tab 3-0 -04 00:00: 00 Yes [id number] TAKE 1 TABLET BY MOUTH ONCE DAILY IN THE MORNING Univers ity [facility] PROMETHAZIN E 12.5 mg tablet 3-0 04 00:00: 00 Yes [id number] TAKE 2 TABLETS BY MOUTH EVERY 6 HOURS NEEDED FOR VERTIGO Univers ity [facility] JARDIANCE 25 mg Tab 3-0 1-04 00:00: 00 Yes [id number] TAKE 1 TABLET BY MOUTH ONCE DAILY IN THE MORNING [facility] J[facility] Tab 2023-0 1-04 00:00: 00 Yes [id number] TAKE 1 TABLET BY MOUTH ONCE DAILY IN THE MORNING Univers [facility] JARDIANCE 25 mg Tab 2023-0 1-04 00:00: 00 Yes [id number] TAKE 1 TABLET BY MOUTH ONCE DAILY IN THE MORNING Univers [facility] JARDIANCE 25 mg Tab 2023-0 1-04 00:00: 00 Yes [id number] TAKE 1 TABLET BY MOUTH ONCE DAILY IN THE MORNING Univers [facility] JARDIANCE 25 mg Tab 2023-0 1-04 00:00: 00 Yes [id number] TAKE 1 TABLET BY MOUTH ONCE DAILY IN THE MORNING Univers [facility] JARDIANCE 25 mg Tab 2023-0 1-04 00:00: 00 Yes [id number] TAKE 1 TABLET BY MOUTH ONCE DAILY IN THE MORNING Univers [facility] JARDIANCE 25 mg Tab 2023-0 1-04 00:00: 00 Yes [id number] TAKE 1 TABLET BY MOUTH ONCE DAILY IN THE MORNING Univers [facility] JARDIANCE 25 mg Tab 2023-0 1-04 00:00: 00 Yes [id number] TAKE 1 TABLET BY MOUTH ONCE DAILY IN THE MORNING Univers [facility] JARDIANCE 25 mg Tab 2023-0 1-04 00:00: 00 Yes [id number] TAKE 1 TABLET BY MOUTH ONCE DAILY IN THE MORNING Univers [facility] JARDIANCE 25 mg Tab 2023-0 1-04 00:00: 00 Yes [id number] TAKE 1 TABLET BY MOUTH ONCE DAILY IN THE MORNING Univers [facility] JARDIANCE 25 mg Tab 2023-0 1-04 00:00: 00 Yes [id number] TAKE 1 TABLET BY MOUTH ONCE DAILY IN THE MORNING Univers [facility] JARDIANCE 25 mg Tab 2023-0 1-04 00:00: 00 Yes [id number] TAKE 1 TABLET BY MOUTH ONCE DAILY IN THE MORNING Univers [facility] JARDIANCE 25 mg Tab 2023-0 1-04 00:00: 00 Yes [id number] TAKE 1 TABLET BY MOUTH ONCE DAILY IN THE MORNING Univers [facility] JARDIANCE 25 mg Tab 0 08-16 00:00: 00 Yes [id number] TAKE 1 TABLET BY MOUTH ONCE DAILY IN THE MORNING Univers ity [facility] JARDIANCE 25 mg Tab 0 08-16 00:00: 00 Yes [id number] TAKE 1 TABLET BY MOUTH ONCE DAILY IN THE MORNING Univers ity [facility] JARDIANCE 25 mg Tab 0 08-16 00:00: 00 Yes [id number] TAKE 1 TABLET BY MOUTH ONCE DAILY IN THE MORNING Univers ity [facility] JARDIANCE 25 mg Tab 0 08-16 00:00: 00 Yes [id number] TAKE 1 TABLET BY MOUTH ONCE DAILY IN THE MORNING [facility] HYDROXYZINE 25 mg tablet 2022-08-16 00:00: 00 Yes [id number] TAKE 1 TABLET BY MOUTH EVERY 8 HOURS NEEDED FOR ITCHING Univers [facility] PROMETHAZIN E 12.5 mg tablet 08-16 00:00: 00 Yes [id number] TAKE 2 TABLETS BY MOUTH EVERY 6 HOURS NEEDED FOR VERTIGO Univers [facility] JARDIANCE 25 mg Tab 08-16 00:00: 00 Yes [id number] TAKE 1 TABLET BY MOUTH ONCE DAILY IN THE MORNING [facility] HYDROXYZINE 25 mg tablet 08-16 00:00: 00 Yes [id number] TAKE 1 TABLET BY MOUTH EVERY 8 HOURS NEEDED FOR ITCHING Univers [facility] PROMETHAZIN E 12.5 mg tablet 0 08-16 00:00: 00 Yes [id number] TAKE 2 TABLETS BY MOUTH EVERY 6 HOURS NEEDED FOR VERTIGO Univers [facility] JARDIANCE 25 mg Tab 0 08-16 00:00: 00 Yes [id number] TAKE 1 TABLET BY MOUTH ONCE DAILY IN THE MORNING [facility] HYDROXYZINE 25 mg tablet 08-16 00:00: 00 Yes [id number] TAKE 1 TABLET BY MOUTH EVERY 8 HOURS NEEDED FOR ITCHING Univers [facility] PROMETHAZIN E 12.5 mg tablet 2022-0 08-16 00:00: 00 Yes [id number] TAKE 2 TABLETS BY MOUTH EVERY 6 HOURS NEEDED FOR VERTIGO Univers [facility] JARDIANCE 25 mg Tab 08-16 00:00: 00 Yes [id number] TAKE 1 TABLET BY MOUTH ONCE DAILY IN THE MORNING Univers ity [facility] HYDROXYZINE 25 mg tablet 0 08-16 00:00: 00 Yes [id number] TAKE 1 TABLET BY MOUTH EVERY 8 HOURS NEEDED FOR ITCHING Univers ity [facility] PROMETHAZIN E 12.5 mg tablet 08-16 00:00: 00 Yes [id number] TAKE 2 TABLETS BY MOUTH EVERY 6 HOURS NEEDED FOR VERTIGO Univers ity [facility] JARDIANCE 25 mg Tab 0 08-16 00:00: 00 Yes [id number] TAKE 1 TABLET BY MOUTH ONCE DAILY IN THE MORNING Univers ity [facility] HYDROXYZINE 25 mg tablet 08-16 00:00: 00 Yes [id number] TAKE 1 TABLET BY MOUTH EVERY 8 HOURS NEEDED FOR ITCHING Univers ity [facility] PROMETHAZIN E 12.5 mg tablet 08-16 00:00: 00 Yes [id number] TAKE 2 TABLETS BY MOUTH EVERY 6 HOURS NEEDED FOR VERTIGO Univers ity [facility] JARDIANCE 25 mg Tab 08-16 00:00: 00 Yes [id number] TAKE 1 TABLET BY MOUTH ONCE DAILY IN THE MORNING [facility] HYDROXYZINE 25 mg tablet 08-16 00:00: 00 Yes [id number] TAKE 1 TABLET BY MOUTH EVERY 8 HOURS NEEDED FOR ITCHING [facility] PROMETHAZIN E 12.5 mg tablet 08-16 00:00: 00 Yes [id number] TAKE 2 TABLETS BY MOUTH EVERY 6 HOURS NEEDED FOR VERTIGO [facility] JARDIANCE 25 mg Tab 08-16 00:00: 00 Yes [id number] TAKE 1 TABLET BY MOUTH ONCE DAILY IN THE MORNING [facility] HYDROXYZINE 25 mg tablet 0 08-16 00:00: 00 Yes [id number] TAKE 1 TABLET BY MOUTH EVERY 8 HOURS NEEDED FOR ITCHING [facility] PROMETHAZIN E 12.5 mg tablet 0 08-16 00:00: 00 Yes [id number] TAKE 2 TABLETS BY MOUTH EVERY 6 HOURS NEEDED FOR VERTIGO Univers [facility] JARDIANCE 25 mg Tab 2022-0 1-04 00:00: 00 Yes [id number] TAKE 1 TABLET BY MOUTH ONCE DAILY IN THE MORNING Univers [facility] HYDROXYZINE 25 mg tablet 2022-0 1-04 00:00: 00 Yes [id number] TAKE 1 TABLET BY MOUTH EVERY 8 HOURS NEEDED FOR ITCHING Univers [facility] PROMETHAZIN E 12.5 mg tablet 0 1-04 00:00: 00 Yes [id number] TAKE 2 TABLETS BY MOUTH EVERY 6 HOURS NEEDED FOR VERTIGO Univers [facility] JARDIANCE 25 mg Tab 2022-0 1-04 00:00: 00 12-12 00:00 :00 No [id number] TAKE 1 TABLET BY MOUTH ONCE DAILY IN THE MORNING Univers [facility] JARDIANCE 25 mg Tab 2022-0 1-04 00:00: 00 12-12 00:00 :00 No [id number] TAKE 1 TABLET BY MOUTH ONCE DAILY IN THE MORNING Univers [facility] JARDIANCE 25 mg Tab 2022-0 1-04 00:00: 00 12-12 00:00 :00 No [id number] TAKE 1 TABLET BY MOUTH ONCE DAILY IN THE MORNING Univers [facility] JARDIANCE 25 mg Tab 0 -04 00:00: 00 12-12 00:00 :00 No [id number] TAKE 1 TABLET BY MOUTH ONCE DAILY IN THE MORNING Univers [facility] PROMETHAZIN E 12.5 mg tablet 2022-0 1-04 00:00: 00 11-07 00:00 :00 No [id number] TAKE 2 TABLETS BY MOUTH EVERY 6 HOURS NEEDED FOR VERTIGO Univers [facility] PROMETHAZIN E 12.5 mg tablet 2022-0 1-04 00:00: 00 11-07 00:00 :00 No [id number] TAKE 2 TABLETS BY MOUTH EVERY 6 HOURS NEEDED FOR VERTIGO [facility] PROMETHAZIN E 12.5 mg tablet 2022-0 1-04 00:00: 00 11-07 00:00 :00 No [id number] TAKE 2 TABLETS BY MOUTH EVERY 6 HOURS NEEDED FOR VERTIGO Univers [facility] PROMETHAZIN E 12.5 mg tablet 2022-0 1-04 00:00: 00 11-07 00:00 :00 No [id number] TAKE 2 TABLETS BY MOUTH EVERY 6 HOURS NEEDED FOR VERTIGO Univers [facility] PROMETHAZIN E 12.5 mg tablet 1-04 00:00: 00 11-07 00:00 :00 No [id number] TAKE 2 TABLETS BY MOUTH EVERY 6 HOURS NEEDED FOR VERTIGO Univers [facility] HYDROXYZINE 25 mg tablet 1-04 00:00: 00 09-21 00:00 :00 No [id number] TAKE 1 TABLET BY MOUTH EVERY 8 HOURS NEEDED FOR ITCHING Univers [facility] HYDROXYZINE 25 mg tablet 0 1-04 00:00: 00 09-21 00:00 :00 No [id number] TAKE 1 TABLET BY MOUTH EVERY 8 HOURS NEEDED FOR ITCHING Univers [facility] HYDROXYZINE 25 mg tablet 0 1-04 00:00: 00 09-21 00:00 :00 No [id number] TAKE 1 TABLET BY MOUTH EVERY 8 HOURS NEEDED FOR ITCHING Univers [facility] HYDROXYZINE 25 mg tablet 1-04 00:00: 00 09-21 00:00 :00 No [id number] TAKE 1 TABLET BY MOUTH EVERY 8 HOURS NEEDED FOR ITCHING Univers [facility] fluconazole 200 mg tablet 2021-08 00:00: 00 Yes [id number] 200mg Take 1 tablet by mouth in the morning. [facility] fluconazole 200 mg tablet 2021-08 00:00: 00 Yes [id number] 200mg Take 1 tablet by mouth in the morning. [facility] fluconazole 200 mg tablet 2021-08 00:00: 00 Yes [id number] 200mg Take 1 tablet by mouth in the morning. [facility] fluconazole 200 mg tablet 2021-08 00:00: 00 Yes [id number] 200mg Take 1 tablet by mouth in the morning. [facility] fluconazole 200 mg tablet 2021-08 2 00:00: 00 Yes [id number] 200mg Take 1 tablet by mouth in the morning. [facility] fluconazole 200 mg tablet 2021-08 00:00: 00 Yes [id number] 200mg Take 1 tablet by mouth in the morning. [facility] fluconazole 200 mg tablet 2021-08 00:00: 00 Yes [id number] 200mg Take 1 tablet by mouth in the morning. [facility] fluconazole 200 mg tablet 2021-08 00:00: 00 Yes [id number] 200mg Take 1 tablet by mouth in the morning. [facility] fluconazole 200 mg tablet 2021-08 00:00: 00 Yes [id number] 200mg Take 1 tablet by mouth in the morning. [facility] fluconazole 200 mg tablet 2021-08 00:00: 00 Yes [id number] 200mg Take 1 tablet by mouth in the morning. [facility] fluconazole 200 mg tablet 2021-08 00:00: 00 Yes [id number] 200mg Take 1 tablet by mouth in the morning. [facility] fluconazole 200 mg tablet 2021-08 00:00: 00 Yes [id number] 200mg Take 1 tablet by mouth in the morning. [facility] fluconazole 200 mg tablet 2021-08 00:00: 00 Yes [id number] 200mg Take 1 tablet by mouth in the morning. [facility] fluconazole 200 mg tablet 2021-08 00:00: 00 Yes [id number] 200mg Take 1 tablet by mouth in the morning. [facility] fluconazole 200 mg tablet 2021-08 00:00: 00 Yes [id number] 200mg Take 1 tablet by mouth in the morning. [facility] fluconazole 200 mg tablet 2021-08 00:00: 00 Yes [id number] 200mg Take 1 tablet by mouth in the morning. [facility] fluconazole 200 mg tablet 2021-08 00:00: 00 Yes [id number] 200mg Take 1 tablet by mouth in the morning. [facility] fluconazole 200 mg tablet 2021-08 2 00:00: 00 Yes [id number] 200mg Take 1 tablet by mouth in the morning. [facility] fluconazole 200 mg tablet 2021-08 00:00: 00 Yes [id number] 200mg Take 1 tablet by mouth in the morning. [facility] fluconazole 200 mg tablet 2021-08 00:00: 00 Yes [id number] 200mg Take 1 tablet by mouth in the morning. [facility] fluconazole 200 mg tablet 2021-08 00:00: 00 Yes [id number] 200mg Take 1 tablet by mouth in the morning. [facility] fluconazole 200 mg tablet 2021-08 00:00: 00 Yes [id number] 200mg Take 1 tablet by mouth in the morning. [facility] fluconazole 200 mg tablet 2021-08 00:00: 00 Yes [id number] 200mg Take 1 tablet by mouth in the morning. [facility] fluconazole 200 mg tablet 2021-08 00:00: 00 Yes [id number] 200mg Take 1 tablet by mouth in the morning. [facility] fluconazole 200 mg tablet 2021-08 00:00: 00 Yes [id number] 200mg Take 1 tablet by mouth in the morning. [facility] fluconazole 200 mg tablet 2021-08 00:00: 00 Yes [id number] 200mg Take 1 tablet by mouth in the morning. [facility] fluconazole 200 mg tablet 2021-08 00:00: 00 Yes [id number] 200mg Take 1 tablet by mouth in the morning. [facility] fluconazole 200 mg tablet 2021-08 00:00: 00 Yes [id number] 200mg Take 1 tablet by mouth in the morning. [facility] fluconazole 200 mg tablet 2021-08 00:00: 00 Yes [id number] 200mg Take 1 tablet by mouth in the morning. [facility] fluconazole 200 mg tablet 2021-08 00:00: 00 Yes [id number] 200mg Take 1 tablet by mouth in the morning. [facility] fluconazole 200 mg tablet 2021-08 2 00:00: 00 Yes [id number] 200mg Take 1 tablet by mouth in the morning. [facility] fluconazole 200 mg tablet 2021-08 00:00: 00 Yes [id number] 200mg Take 1 tablet by mouth in the morning. [facility] fluconazole 200 mg tablet 2021-08 00:00: 00 Yes [id number] 200mg Take 1 tablet by mouth in the morning. [facility] fluconazole 200 mg tablet 2021-08 00:00: 00 Yes [id number] 200mg Take 1 tablet by mouth in the morning. [facility] fluconazole 200 mg tablet 2021-08 00:00: 00 Yes [id number] 200mg Take 1 tablet by mouth in the morning. [facility] fluconazole 200 mg tablet 2021-08 00:00: 00 Yes [id number] 200mg Take 1 tablet by mouth in the morning. [facility] fluconazole 200 mg tablet 2021-08 00:00: 00 Yes [id number] 200mg Take 1 tablet by mouth in the morning. [facility] fluconazole 200 mg tablet 2021-08 00:00: 00 Yes [id number] 200mg Take 1 tablet by mouth in the morning. [facility] fluconazole 200 mg tablet 2021-08 00:00: 00 Yes [id number] 200mg Take 1 tablet by mouth in the morning. [facility] fluconazole 200 mg tablet 2021-08 00:00: 00 Yes [id number] 200mg Take 1 tablet by mouth in the morning. [facility] fluconazole 200 mg tablet 2021-08 00:00: 00 Yes [id number] 200mg Take 1 tablet by mouth in the morning. [facility] fluconazole 200 mg tablet 2021-08 00:00: 00 Yes [id number] 200mg Take 1 tablet by mouth in the morning. [facility] fluconazole 200 mg tablet 2021-08 00:00: 00 Yes [id number] 200mg Take 1 tablet by mouth in the morning. [facility] fluconazole 200 mg tablet 2021-08 2- 00:00: 00 Yes [id number] 200mg Take 1 tablet by mouth in the morning. [facility] fluconazole 200 mg tablet 2021-08 2 00:00: 00 Yes [id number] 200mg Take 1 tablet by mouth in the morning. [facility] fluconazole 200 mg tablet 2021-08 2- 00:00: 00 Yes [id number] 200mg Take 1 tablet by mouth in the morning. [facility] fluconazole 200 mg tablet 2021-08 2 00:00: 00 Yes [id number] 200mg Take 1 tablet by mouth in the morning. [facility] fluconazole 200 mg tablet 2021-08 00:00: 00 Yes [id number] 200mg Take 1 tablet by mouth in the morning. [facility] fluconazole 200 mg tablet 2021-08 2 00:00: 00 Yes [id number] 200mg Take 1 tablet by mouth in the morning. [facility] fluconazole 200 mg tablet 2021-08 00:00: 00 Yes [id number] 200mg Take 1 tablet by mouth in the morning. [facility] fluconazole 200 mg tablet 2021-08 2 00:00: 00 Yes [id number] 200mg Take 1 tablet by mouth in the morning. [facility] fluconazole 200 mg tablet 2021-08 2- 00:00: 00 Yes [id number] 200mg Take 1 tablet by mouth in the morning. [facility] fluconazole 200 mg tablet 2021-08 2 00:00: 00 Yes [id number] 200mg Take 1 tablet by mouth in the morning. [facility] fluconazole 200 mg tablet 2021-08 2- 00:00: 00 Yes [id number] 200mg Take 1 tablet by mouth in the morning. [facility] fluconazole 200 mg tablet 2021-08 2- 00:00: 00 Yes [id number] 200mg Take 1 tablet by mouth in the morning. [facility] fluconazole 200 mg tablet 2021-08 2- 00:00: 00 Yes [id number] 200mg Take 1 tablet by mouth in the morning. [facility] fluconazole 200 mg tablet 2021-08 2- 00:00: 00 Yes [id number] 200mg Take 1 tablet by mouth in the morning. [facility] fluconazole 200 mg tablet 2021-08 2 00:00: 00 Yes [id number] 200mg Take 1 tablet by mouth in the morning. [facility] fluconazole 200 mg tablet 2021-08 2 00:00: 00 Yes [id number] 200mg Take 1 tablet by mouth in the morning. [facility] fluconazole 200 mg tablet 2021-08 00:00: 00 Yes [id number] 200mg Take 1 tablet by mouth in the morning. [facility] fluconazole 200 mg tablet 2021-08 00:00: 00 Yes [id number] 200mg Take 1 tablet by mouth in the morning. [facility] fluconazole 200 mg tablet 2021-08 2 00:00: 00 Yes [id number] 200mg Take 1 tablet by mouth in the morning. [facility] fluconazole 200 mg tablet 2021-08 00:00: 00 Yes [id number] 200mg Take 1 tablet by mouth in the morning. [facility] fluconazole 200 mg tablet 2021-08 00:00: 00 Yes [id number] 200mg Take 1 tablet by mouth in the morning. [facility] fluconazole 200 mg tablet 2021-08 2- 00:00: 00 Yes [id number] 200mg Take 1 tablet by mouth in the morning. [facility] fluconazole 200 mg tablet 2021-08 2 00:00: 00 Yes [id number] 200mg Take 1 tablet by mouth in the morning. [facility] fluconazole 200 mg tablet 2021-08 2- 00:00: 00 Yes [id number] 200mg Take 1 tablet by mouth in the morning. [facility] fluconazole 200 mg tablet 2021-08 2- 00:00: 00 Yes [id number] 200mg Take 1 tablet by mouth in the morning. [facility] fluconazole 200 mg tablet 2021-08 00:00: 00 Yes [id number] 200mg Take 1 tablet by mouth in the morning. [facility] fluconazole 200 mg tablet 2021-08 00:00: 00 Yes [id number] 200mg Take 1 tablet by mouth in the morning. [facility] fluconazole 200 mg tablet 2021-08 00:00: 00 Yes [id number] 200mg Take 1 tablet by mouth in the morning. [facility] fluconazole 200 mg tablet 2021-08 00:00: 00 Yes [id number] 200mg Take 1 tablet by mouth in the morning. [facility] fluconazole 200 mg tablet 2021-08 00:00: 00 Yes [id number] 200mg Take 1 tablet by mouth in the morning. [facility] fluconazole 200 mg tablet 2021-08 00:00: 00 Yes [id number] 200mg Take 1 tablet by mouth in the morning. [facility] fluconazole 200 mg tablet 2021-08 00:00: 00 Yes [id number] 200mg Take 1 tablet by mouth in the morning. [facility] fluconazole 200 mg tablet 2021-08 00:00: 00 Yes [id number] 200mg Take 1 tablet by mouth in the morning. [facility] fluconazole 200 mg tablet 2021-08 00:00: 00 Yes [id number] 200mg Take 1 tablet by mouth in the morning. [facility] fluconazole 200 mg tablet 2021-08 00:00: 00 Yes [id number] 200mg Take 1 tablet by mouth in the morning. [facility] fluconazole 200 mg tablet 2021-08 00:00: 00 Yes [id number] 200mg Take 1 tablet by mouth in the morning. [facility] fluconazole 200 mg tablet 2021-08 00:00: 00 Yes [id number] 200mg Take 1 tablet by mouth in the morning. [facility] fluconazole 200 mg tablet 2021-08 00:00: 00 Yes [id number] 200mg Take 1 tablet by mouth in the morning. [facility] fluconazole 200 mg tablet 2021-08 00:00: 00 Yes [id number] 200mg Take 1 tablet by mouth in the morning. [facility] fluconazole 200 mg tablet 2021-08 00:00: 00 Yes [id number] 200mg Take 1 tablet by mouth in the morning. [facility] fluconazole 200 mg tablet 2021-08 00:00: 00 Yes [id number] 200mg Take 1 tablet by mouth in the morning. [facility] fluconazole 200 mg tablet 2021-08 00:00: 00 Yes [id number] 200mg Take 1 tablet by mouth in the morning. [facility] fluconazole 200 mg tablet 2021-08 00:00: 00 Yes [id number] 200mg Take 1 tablet by mouth in the morning. [facility] fluconazole 200 mg tablet 2021-08 00:00: 00 Yes [id number] 200mg Take 1 tablet by mouth in the morning. [facility] fluconazole 200 mg tablet 2021-08 00:00: 00 Yes [id number] 200mg Take 1 tablet by mouth in the morning. [facility] fluconazole 200 mg tablet 2021-08 00:00: 00 Yes [id number] 200mg Take 1 tablet by mouth in the morning. [facility] fluconazole 200 mg tablet 2021-08 00:00: 00 Yes [id number] 200mg Take 1 tablet by mouth in the morning. [facility] fluconazole 200 mg tablet 2021-08 00:00: 00 Yes [id number] 200mg Take 1 tablet by mouth in the morning. [facility] fluconazole 200 mg tablet 2021-08 00:00: 00 Yes [id number] 200mg Take 1 tablet by mouth in the morning. [facility] fluconazole 200 mg tablet 2021-08 00:00: 00 Yes [id number] 200mg Take 1 tablet by mouth in the morning. [facility] fluconazole 200 mg tablet 2021-08 00:00: 00 Yes [id number] 200mg Take 1 tablet by mouth in the morning. [facility] fluconazole 200 mg tablet 2021-08 2 00:00: 00 12-28 00:00 :00 No [id number] 200mg Take 1 tablet by mouth in the morning. [facility] fluconazole 200 mg tablet 2021-08 2 00:00: 00 12-28 00:00 :00 No [id number] 200mg Take 1 tablet by mouth in the morning. [facility] fluconazole 200 mg tablet 2021-08 2 00:00: 00 12-28 00:00 :00 No [id number] 200mg Take 1 tablet by mouth in the morning. [facility] terconazole 0.4 % vaginal cream 2021-08 00:00: 00 Yes [id number] 1{appli cator} Insert 1 Applicator into vagina at bedtime. [facility] terconazole 0.4 % vaginal cream 2021-08 00:00: 00 Yes [id number] 1{appli cator} Insert 1 Applicator into vagina at bedtime. [facility] terconazole 0.4 % vaginal cream 2021-08 00:00: 00 Yes [id number] 1{appli cator} Insert 1 Applicator into vagina at bedtime. [facility] terconazole 0.4 % vaginal cream 2021-08 00:00: 00 Yes [id number] 1{appli cator} Insert 1 Applicator into vagina at bedtime. [facility] terconazole 0.4 % vaginal cream 2021-08 2 00:00: 00 Yes [id number] 1{appli cator} Insert 1 Applicator into vagina at bedtime. [facility] terconazole 0.4 % vaginal cream 2021-08 00:00: 00 08-02 00:00 :00 No [id number] 1{appli cator} Insert 1 Applicator into vagina at bedtime. [facility] terconazole 0.4 % vaginal cream 2021-08 2 00:00: 00 08-02 00:00 :00 No [id number] 1{appli cator} Insert 1 Applicator into vagina at bedtime. [facility] NuvaRing 0.12-0.015 mg/24 hr vaginal insert 2021-08 00:00: 00 Yes [id number] 1{each} Insert 1 Each into vagina once every month. Insert vaginally and leave in place for 3 consecutiv e weeks, then remove for 1 week. [facility] NuvaRing 0.12-0.015 mg/24 hr vaginal insert 2021-08 00:00: 00 Yes [id number] 1{each} Insert 1 Each into vagina once every month. Insert vaginally and leave in place for 3 consecutiv e weeks, then remove for 1 week. [facility] NuvaRing 0.12-0.015 mg/24 hr vaginal insert 2021-08 00:00: 00 Yes [id number] 1{each} Insert 1 Each into vagina once every month. Insert vaginally and leave in place for 3 consecutiv e weeks, then remove for 1 week. [facility] NuvaRing 0.12-0.015 mg/24 hr vaginal insert 2021-08 00:00: 00 Yes [id number] 1{each} Insert 1 Each into vagina once every month. Insert vaginally and leave in place for 3 consecutiv e weeks, then remove for 1 week. [facility] NuvaRing 0.12-0.015 mg/24 hr vaginal insert 2021-08 00:00: 00 Yes [id number] 1{each} Insert 1 Each into vagina once every month. Insert vaginally and leave in place for 3 consecutiv e weeks, then remove for 1 week. [facility] NuvaRing 0.12-0.015 mg/24 hr vaginal insert 2021-08 00:00: 00 Yes [id number] 1{each} Insert 1 Each into vagina once every month. Insert vaginally and leave in place for 3 consecutiv e weeks, then remove for 1 week. [facility] NuvaRing 0.12-0.015 mg/24 hr vaginal insert 2021-08 00:00: 00 Yes [id number] 1{each} Insert 1 Each into vagina once every month. Insert vaginally and leave in place for 3 consecutiv e weeks, then remove for 1 week. [facility] NuvaRing 0.12-0.015 mg/24 hr vaginal insert 2021-08 00:00: 00 Yes [id number] 1{each} Insert 1 Each into vagina once every month. Insert vaginally and leave in place for 3 consecutiv e weeks, then remove for 1 week. [facility]y [facility] NuvaRing 0.12-0.015 mg/24 hr vaginal insert 2021-08 00:00: 00 Yes [id number] 1{each} Insert 1 Each into vagina once every month. Insert vaginally and leave in place for 3 consecutiv e weeks, then remove for 1 week. [facility] NuvaRing 0.12-0.015 mg/24 hr vaginal insert 2021-08 00:00: 00 Yes [id number] 1{each} Insert 1 Each into vagina once every month. Insert vaginally and leave in place for 3 consecutiv e weeks, then remove for 1 week. [facility]y [facility] NuvaRing 0.12-0.015 mg/24 hr vaginal insert 2021-08 00:00: 00 Yes [id number] 1{each} Insert 1 Each into vagina once every month. Insert vaginally and leave in place for 3 consecutiv e weeks, then remove for 1 week. [facility] NuvaRing 0.12-0.015 mg/24 hr vaginal insert 2021-08 00:00: 00 Yes [id number] 1{each} Insert 1 Each into vagina once every month. Insert vaginally and leave in place for 3 consecutiv e weeks, then remove for 1 week. [facility] NuvaRing 0.12-0.015 mg/24 hr vaginal insert 2021-08 00:00: 00 Yes [id number] 1{each} Insert 1 Each into vagina once every month. Insert vaginally and leave in place for 3 consecutiv e weeks, then remove for 1 week. [facility]y [facility] NuvaRing 0.12-0.015 mg/24 hr vaginal insert 2021-08 00:00: 00 Yes [id number] 1{each} Insert 1 Each into vagina once every month. Insert vaginally and leave in place for 3 consecutiv e weeks, then remove for 1 week. [facility] NuvaRing 0.12-0.015 mg/24 hr vaginal insert 2021-08 00:00: 00 Yes [id number] 1{each} Insert 1 Each into vagina once every month. Insert vaginally and leave in place for 3 consecutiv e weeks, then remove for 1 week. [facility] NuvaRing 0.12-0.015 mg/24 hr vaginal insert 2021-08 00:00: 00 Yes [id number] 1{each} Insert 1 Each into vagina once every month. Insert vaginally and leave in place for 3 consecutiv e weeks, then remove for 1 week. [facility] NuvaRing 0.12-0.015 mg/24 hr vaginal insert 2021-08 00:00: 00 Yes [id number] 1{each} Insert 1 Each into vagina once every month. Insert vaginally and leave in place for 3 consecutiv e weeks, then remove for 1 week. [facility] NuvaRing 0.12-0.015 mg/24 hr vaginal insert 2021-08 00:00: 00 Yes [id number] 1{each} Insert 1 Each into vagina once every month. Insert vaginally and leave in place for 3 consecutiv e weeks, then remove for 1 week. [facility] NuvaRing 0.12-0.015 mg/24 hr vaginal insert 2021-08 00:00: 00 Yes [id number] 1{each} Insert 1 Each into vagina once every month. Insert vaginally and leave in place for 3 consecutiv e weeks, then remove for 1 week. [facility] NuvaRing 0.12-0.015 mg/24 hr vaginal insert 2021-08 00:00: 00 Yes [id number] 1{each} Insert 1 Each into vagina once every month. Insert vaginally and leave in place for 3 consecutiv e weeks, then remove for 1 week. [facility] NuvaRing 0.12-0.015 mg/24 hr vaginal insert 2021-08 00:00: 00 Yes [id number] 1{each} Insert 1 Each into vagina once every month. Insert vaginally and leave in place for 3 consecutiv e weeks, then remove for 1 week. [facility]y [facility] NuvaRing 0.12-0.015 mg/24 hr vaginal insert 2021-08 00:00: 00 Yes [id number] 1{each} Insert 1 Each into vagina once every month. Insert vaginally and leave in place for 3 consecutiv e weeks, then remove for 1 week. [facility]y [facility] NuvaRing 0.12-0.015 mg/24 hr vaginal insert 2021-08 00:00: 00 Yes [id number] 1{each} Insert 1 Each into vagina once every month. Insert vaginally and leave in place for 3 consecutiv e weeks, then remove for 1 week. [facility] NuvaRing 0.12-0.015 mg/24 hr vaginal insert 2021-08 00:00: 00 Yes [id number] 1{each} Insert 1 Each into vagina once every month. Insert vaginally and leave in place for 3 consecutiv e weeks, then remove for 1 week. [facility] NuvaRing 0.12-0.015 mg/24 hr vaginal insert 2021-08 00:00: 00 Yes [id number] 1{each} Insert 1 Each into vagina once every month. Insert vaginally and leave in place for 3 consecutiv e weeks, then remove for 1 week. [facility] NuvaRing 0.12-0.015 mg/24 hr vaginal insert 2021-08 00:00: 00 Yes [id number] 1{each} Insert 1 Each into vagina once every month. Insert vaginally and leave in place for 3 consecutiv e weeks, then remove for 1 week. [facility] NuvaRing 0.12-0.015 mg/24 hr vaginal insert 2021-08 00:00: 00 Yes [id number] 1{each} Insert 1 Each into vagina once every month. Insert vaginally and leave in place for 3 consecutiv e weeks, then remove for 1 week. [facility] NuvaRing 0.12-0.015 mg/24 hr vaginal insert 2021-08 00:00: 00 Yes [id number] 1{each} Insert 1 Each into vagina once every month. Insert vaginally and leave in place for 3 consecutiv e weeks, then remove for 1 week. [facility] NuvaRing 0.12-0.015 mg/24 hr vaginal insert 2021-08 00:00: 00 Yes [id number] 1{each} Insert 1 Each into vagina once every month. Insert vaginally and leave in place for 3 consecutiv e weeks, then remove for 1 week. [facility] NuvaRing 0.12-0.015 mg/24 hr vaginal insert 2021-08 00:00: 00 Yes [id number] 1{each} Insert 1 Each into vagina once every month. Insert vaginally and leave in place for 3 consecutiv e weeks, then remove for 1 week. [facility] NuvaRing 0.12-0.015 mg/24 hr vaginal insert 2021-08 00:00: 00 Yes [id number] 1{each} Insert 1 Each into vagina once every month. Insert vaginally and leave in place for 3 consecutiv e weeks, then remove for 1 week. [facility] NuvaRing 0.12-0.015 mg/24 hr vaginal insert 2021-08 00:00: 00 Yes [id number] 1{each} Insert 1 Each into vagina once every month. Insert vaginally and leave in place for 3 consecutiv e weeks, then remove for 1 week. [facility] NuvaRing 0.12-0.015 mg/24 hr vaginal insert 2021-08 00:00: 00 Yes [id number] 1{each} Insert 1 Each into vagina once every month. Insert vaginally and leave in place for 3 consecutiv e weeks, then remove for 1 week. [facility] NuvaRing 0.12-0.015 mg/24 hr vaginal insert 2021-08 00:00: 00 Yes [id number] 1{each} Insert 1 Each into vagina once every month. Insert vaginally and leave in place for 3 consecutiv e weeks, then remove for 1 week. [facility] NuvaRing 0.12-0.015 mg/24 hr vaginal insert 2021-08 00:00: 00 Yes [id number] 1{each} Insert 1 Each into vagina once every month. Insert vaginally and leave in place for 3 consecutiv e weeks, then remove for 1 week. [facility] NuvaRing 0.12-0.015 mg/24 hr vaginal insert 2021-08 00:00: 00 Yes [id number] 1{each} Insert 1 Each into vagina once every month. Insert vaginally and leave in place for 3 consecutiv e weeks, then remove for 1 week. [facility] NuvaRing 0.12-0.015 mg/24 hr vaginal insert 2021-08 00:00: 00 Yes [id number] 1{each} Insert 1 Each into vagina once every month. Insert vaginally and leave in place for 3 consecutiv e weeks, then remove for 1 week. [facility] NuvaRing 0.12-0.015 mg/24 hr vaginal insert 2021-08 00:00: 00 Yes [id number] 1{each} Insert 1 Each into vagina once every month. Insert vaginally and leave in place for 3 consecutiv e weeks, then remove for 1 week. [facility] NuvaRing 0.12-0.015 mg/24 hr vaginal insert 2021-08 00:00: 00 Yes [id number] 1{each} Insert 1 Each into vagina once every month. Insert vaginally and leave in place for 3 consecutiv e weeks, then remove for 1 week. [facility] NuvaRing 0.12-0.015 mg/24 hr vaginal insert 2021-08 00:00: 00 Yes [id number] 1{each} Insert 1 Each into vagina once every month. Insert vaginally and leave in place for 3 consecutiv e weeks, then remove for 1 week. [facility] NuvaRing 0.12-0.015 mg/24 hr vaginal insert 2021-08 00:00: 00 Yes [id number] 1{each} Insert 1 Each into vagina once every month. Insert vaginally and leave in place for 3 consecutiv e weeks, then remove for 1 week. [facility] NuvaRing 0.12-0.015 mg/24 hr vaginal insert 2021-08 00:00: 00 Yes [id number] 1{each} Insert 1 Each into vagina once every month. Insert vaginally and leave in place for 3 consecutiv e weeks, then remove for 1 week. [facility] NuvaRing 0.12-0.015 mg/24 hr vaginal insert 2021-08 00:00: 00 Yes [id number] 1{each} Insert 1 Each into vagina once every month. Insert vaginally and leave in place for 3 consecutiv e weeks, then remove for 1 week. [facility] NuvaRing 0.12-0.015 mg/24 hr vaginal insert 2021-08 00:00: 00 Yes [id number] 1{each} Insert 1 Each into vagina once every month. Insert vaginally and leave in place for 3 consecutiv e weeks, then remove for 1 week. [facility] NuvaRing 0.12-0.015 mg/24 hr vaginal insert 2021-08 00:00: 00 Yes [id number] 1{each} Insert 1 Each into vagina once every month. Insert vaginally and leave in place for 3 consecutiv e weeks, then remove for 1 week. [facility] NuvaRing 0.12-0.015 mg/24 hr vaginal insert 2021-08 00:00: 00 Yes [id number] 1{each} Insert 1 Each into vagina once every month. Insert vaginally and leave in place for 3 consecutiv e weeks, then remove for 1 week. [facility] NuvaRing 0.12-0.015 mg/24 hr vaginal insert 2021-08 00:00: 00 Yes [id number] 1{each} Insert 1 Each into vagina once every month. Insert vaginally and leave in place for 3 consecutiv e weeks, then remove for 1 week. [facility] NuvaRing 0.12-0.015 mg/24 hr vaginal insert 2021-08 00:00: 00 Yes [id number] 1{each} Insert 1 Each into vagina once every month. Insert vaginally and leave in place for 3 consecutiv e weeks, then remove for 1 week. [facility] NuvaRing 0.12-0.015 mg/24 hr vaginal insert 2021-08 00:00: 00 Yes [id number] 1{each} Insert 1 Each into vagina once every month. Insert vaginally and leave in place for 3 consecutiv e weeks, then remove for 1 week. [facility] NuvaRing 0.12-0.015 mg/24 hr vaginal insert 2021-08 00:00: 00 Yes [id number] 1{each} Insert 1 Each into vagina once every month. Insert vaginally and leave in place for 3 consecutiv e weeks, then remove for 1 week. [facility] NuvaRing 0.12-0.015 mg/24 hr vaginal insert 2021-08 00:00: 00 Yes [id number] 1{each} Insert 1 Each into vagina once every month. Insert vaginally and leave in place for 3 consecutiv e weeks, then remove for 1 week. [facility] NuvaRing 0.12-0.015 mg/24 hr vaginal insert 2021-08 00:00: 00 Yes [id number] 1{each} Insert 1 Each into vagina once every month. Insert vaginally and leave in place for 3 consecutiv e weeks, then remove for 1 week. [facility] NuvaRing 0.12-0.015 mg/24 hr vaginal insert 2021-08 00:00: 00 Yes [id number] 1{each} Insert 1 Each into vagina once every month. Insert vaginally and leave in place for 3 consecutiv e weeks, then remove for 1 week. [facility] NuvaRing 0.12-0.015 mg/24 hr vaginal insert 2021-08 00:00: 00 Yes [id number] 1{each} Insert 1 Each into vagina once every month. Insert vaginally and leave in place for 3 consecutiv e weeks, then remove for 1 week. [facility] NuvaRing 0.12-0.015 mg/24 hr vaginal insert 2021-08 00:00: 00 Yes [id number] 1{each} Insert 1 Each into vagina once every month. Insert vaginally and leave in place for 3 consecutiv e weeks, then remove for 1 week. [facility] NuvaRing 0.12-0.015 mg/24 hr vaginal insert 2021-08 00:00: 00 Yes [id number] 1{each} Insert 1 Each into vagina once every month. Insert vaginally and leave in place for 3 consecutiv e weeks, then remove for 1 week. [facility] NuvaRing 0.12-0.015 mg/24 hr vaginal insert 2021-08 00:00: 00 Yes [id number] 1{each} Insert 1 Each into vagina once every month. Insert vaginally and leave in place for 3 consecutiv e weeks, then remove for 1 week. [facility] NuvaRing 0.12-0.015 mg/24 hr vaginal insert 2021-08 00:00: 00 Yes [id number] 1{each} Insert 1 Each into vagina once every month. Insert vaginally and leave in place for 3 consecutiv e weeks, then remove for 1 week. [facility] NuvaRing 0.12-0.015 mg/24 hr vaginal insert 2021-08 00:00: 00 Yes [id number] 1{each} Insert 1 Each into vagina once every month. Insert vaginally and leave in place for 3 consecutiv e weeks, then remove for 1 week. [facility] NuvaRing 0.12-0.015 mg/24 hr vaginal insert 2021-08 00:00: 00 Yes [id number] 1{each} Insert 1 Each into vagina once every month. Insert vaginally and leave in place for 3 consecutiv e weeks, then remove for 1 week. [facility] NuvaRing 0.12-0.015 mg/24 hr vaginal insert 2021-08 00:00: 00 Yes [id number] 1{each} Insert 1 Each into vagina once every month. Insert vaginally and leave in place for 3 consecutiv e weeks, then remove for 1 week. [facility] NuvaRing 0.12-0.015 mg/24 hr vaginal insert 2021-08 00:00: 00 Yes [id number] 1{each} Insert 1 Each into vagina once every month. Insert vaginally and leave in place for 3 consecutiv e weeks, then remove for 1 week. [facility] NuvaRing 0.12-0.015 mg/24 hr vaginal insert 2021-08 00:00: 00 Yes [id number] 1{each} Insert 1 Each into vagina once every month. Insert vaginally and leave in place for 3 consecutiv e weeks, then remove for 1 week. [facility] NuvaRing 0.12-0.015 mg/24 hr vaginal insert 2021-08 00:00: 00 Yes [id number] 1{each} Insert 1 Each into vagina once every month. Insert vaginally and leave in place for 3 consecutiv e weeks, then remove for 1 week. [facility] NuvaRing 0.12-0.015 mg/24 hr vaginal insert 2021-08 00:00: 00 Yes [id number] 1{each} Insert 1 Each into vagina once every month. Insert vaginally and leave in place for 3 consecutiv e weeks, then remove for 1 week. [facility] NuvaRing 0.12-0.015 mg/24 hr vaginal insert 2021-08 00:00: 00 Yes [id number] 1{each} Insert 1 Each into vagina once every month. Insert vaginally and leave in place for 3 consecutiv e weeks, then remove for 1 week. [facility] NuvaRing 0.12-0.015 mg/24 hr vaginal insert 2021-08 00:00: 00 Yes [id number] 1{each} Insert 1 Each into vagina once every month. Insert vaginally and leave in place for 3 consecutiv e weeks, then remove for 1 week. [facility] NuvaRing 0.12-0.015 mg/24 hr vaginal insert 2021-08 00:00: 00 Yes [id number] 1{each} Insert 1 Each into vagina once every month. Insert vaginally and leave in place for 3 consecutiv e weeks, then remove for 1 week. [facility] NuvaRing 0.12-0.015 mg/24 hr vaginal insert 2021-08 00:00: 00 Yes [id number] 1{each} Insert 1 Each into vagina once every month. Insert vaginally and leave in place for 3 consecutiv e weeks, then remove for 1 week. [facility] NuvaRing 0.12-0.015 mg/24 hr vaginal insert 2021-08 00:00: 00 Yes [id number] 1{each} Insert 1 Each into vagina once every month. Insert vaginally and leave in place for 3 consecutiv e weeks, then remove for 1 week. [facility] NuvaRing 0.12-0.015 mg/24 hr vaginal insert 2021-08 00:00: 00 Yes [id number] 1{each} Insert 1 Each into vagina once every month. Insert vaginally and leave in place for 3 consecutiv e weeks, then remove for 1 week. [facility] NuvaRing 0.12-0.015 mg/24 hr vaginal insert 2021-08 00:00: 00 Yes [id number] 1{each} Insert 1 Each into vagina once every month. Insert vaginally and leave in place for 3 consecutiv e weeks, then remove for 1 week. [facility] NuvaRing 0.12-0.015 mg/24 hr vaginal insert 2021-08 00:00: 00 Yes [id number] 1{each} Insert 1 Each into vagina once every month. Insert vaginally and leave in place for 3 consecutiv e weeks, then remove for 1 week. [facility] NuvaRing 0.12-0.015 mg/24 hr vaginal insert 2021-08 00:00: 00 Yes [id number] 1{each} Insert 1 Each into vagina once every month. Insert vaginally and leave in place for 3 consecutiv e weeks, then remove for 1 week. [facility] NuvaRing 0.12-0.015 mg/24 hr vaginal insert 2021-08 00:00: 00 Yes [id number] 1{each} Insert 1 Each into vagina once every month. Insert vaginally and leave in place for 3 consecutiv e weeks, then remove for 1 week. [facility] NuvaRing 0.12-0.015 mg/24 hr vaginal insert 2021-08 00:00: 00 Yes [id number] 1{each} Insert 1 Each into vagina once every month. Insert vaginally and leave in place for 3 consecutiv e weeks, then remove for 1 week. [facility] NuvaRing 0.12-0.015 mg/24 hr vaginal insert 2021-08 00:00: 00 Yes [id number] 1{each} Insert 1 Each into vagina once every month. Insert vaginally and leave in place for 3 consecutiv e weeks, then remove for 1 week. [facility] NuvaRing 0.12-0.015 mg/24 hr vaginal insert 2021-08 00:00: 00 Yes [id number] 1{each} Insert 1 Each into vagina once every month. Insert vaginally and leave in place for 3 consecutiv e weeks, then remove for 1 week. [facility] NuvaRing 0.12-0.015 mg/24 hr vaginal insert 2021-08 00:00: 00 Yes [id number] 1{each} Insert 1 Each into vagina once every month. Insert vaginally and leave in place for 3 consecutiv e weeks, then remove for 1 week. [facility] NuvaRing 0.12-0.015 mg/24 hr vaginal insert 2021-08 00:00: 00 Yes [id number] 1{each} Insert 1 Each into vagina once every month. Insert vaginally and leave in place for 3 consecutiv e weeks, then remove for 1 week. [facility] NuvaRing 0.12-0.015 mg/24 hr vaginal insert 2021-08 00:00: 00 Yes [id number] 1{each} Insert 1 Each into vagina once every month. Insert vaginally and leave in place for 3 consecutiv e weeks, then remove for 1 week. [facility] NuvaRing 0.12-0.015 mg/24 hr vaginal insert 2021-08 00:00: 00 Yes [id number] 1{each} Insert 1 Each into vagina once every month. Insert vaginally and leave in place for 3 consecutiv e weeks, then remove for 1 week. [facility] NuvaRing 0.12-0.015 mg/24 hr vaginal insert 2021-08 00:00: 00 Yes [id number] 1{each} Insert 1 Each into vagina once every month. Insert vaginally and leave in place for 3 consecutiv e weeks, then remove for 1 week. [facility] NuvaRing 0.12-0.015 mg/24 hr vaginal insert 2021-08 00:00: 00 Yes [id number] 1{each} Insert 1 Each into vagina once every month. Insert vaginally and leave in place for 3 consecutiv e weeks, then remove for 1 week. [facility] NuvaRing 0.12-0.015 mg/24 hr vaginal insert 2021-08 00:00: 00 Yes [id number] 1{each} Insert 1 Each into vagina once every month. Insert vaginally and leave in place for 3 consecutiv e weeks, then remove for 1 week. [facility] NuvaRing 0.12-0.015 mg/24 hr vaginal insert 2021-08 00:00: 00 Yes [id number] 1{each} Insert 1 Each into vagina once every month. Insert vaginally and leave in place for 3 consecutiv e weeks, then remove for 1 week. [facility] NuvaRing 0.12-0.015 mg/24 hr vaginal insert 2021-08 00:00: 00 Yes [id number] 1{each} Insert 1 Each into vagina once every month. Insert vaginally and leave in place for 3 consecutiv e weeks, then remove for 1 week. [facility] NuvaRing 0.12-0.015 mg/24 hr vaginal insert 2021-08 00:00: 00 Yes [id number] 1{each} Insert 1 Each into vagina once every month. Insert vaginally and leave in place for 3 consecutiv e weeks, then remove for 1 week. [facility] NuvaRing 0.12-0.015 mg/24 hr vaginal insert 2021-08 00:00: 00 Yes [id number] 1{each} Insert 1 Each into vagina once every month. Insert vaginally and leave in place for 3 consecutiv e weeks, then remove for 1 week. [facility] NuvaRing 0.12-0.015 mg/24 hr vaginal insert 2021-08 00:00: 00 Yes [id number] 1{each} Insert 1 Each into vagina once every month. Insert vaginally and leave in place for 3 consecutiv e weeks, then remove for 1 week. [facility] NuvaRing 0.12-0.015 mg/24 hr vaginal insert 2021-08 00:00: 00 Yes [id number] 1{each} Insert 1 Each into vagina once every month. Insert vaginally and leave in place for 3 consecutiv e weeks, then remove for 1 week. [facility] NuvaRing 0.12-0.015 mg/24 hr vaginal insert 2021-08 00:00: 00 Yes [id number] 1{each} Insert 1 Each into vagina once every month. Insert vaginally and leave in place for 3 consecutiv e weeks, then remove for 1 week. [facility] NuvaRing 0.12-0.015 mg/24 hr vaginal insert 2021-08 00:00: 00 Yes [id number] 1{each} Insert 1 Each into vagina once every month. Insert vaginally and leave in place for 3 consecutiv e weeks, then remove for 1 week. [facility] NuvaRing 0.12-0.015 mg/24 hr vaginal insert 2021-08 00:00: 00 Yes [id number] 1{each} Insert 1 Each into vagina once every month. Insert vaginally and leave in place for 3 consecutiv e weeks, then remove for 1 week. [facility] NuvaRing 0.12-0.015 mg/24 hr vaginal insert 2021-08 00:00: 00 Yes [id number] 1{each} Insert 1 Each into vagina once every month. Insert vaginally and leave in place for 3 consecutiv e weeks, then remove for 1 week. [facility] NuvaRing 0.12-0.015 mg/24 hr vaginal insert 2021-08 00:00: 00 Yes [id number] 1{each} Insert 1 Each into vagina once every month. Insert vaginally and leave in place for 3 consecutiv e weeks, then remove for 1 week. [facility] NuvaRing 0.12-0.015 mg/24 hr vaginal insert 2021-08 00:00: 00 Yes [id number] 1{each} Insert 1 Each into vagina once every month. Insert vaginally and leave in place for 3 consecutiv e weeks, then remove for 1 week. [facility] NuvaRing 0.12-0.015 mg/24 hr vaginal insert 2021-08 00:00: 00 Yes [id number] 1{each} Insert 1 Each into vagina once every month. Insert vaginally and leave in place for 3 consecutiv e weeks, then remove for 1 week. [facility] NuvaRing 0.12-0.015 mg/24 hr vaginal insert 2021-08 00:00: 00 Yes [id number] 1{each} Insert 1 Each into vagina once every month. Insert vaginally and leave in place for 3 consecutiv e weeks, then remove for 1 week. [facility] NuvaRing 0.12-0.015 mg/24 hr vaginal insert 2021-08 00:00: 00 Yes [id number] 1{each} Insert 1 Each into vagina once every month. Insert vaginally and leave in place for 3 consecutiv e weeks, then remove for 1 week. [facility] NuvaRing 0.12-0.015 mg/24 hr vaginal insert 2021-08 00:00: 00 Yes [id number] 1{each} Insert 1 Each into vagina once every month. Insert vaginally and leave in place for 3 consecutiv e weeks, then remove for 1 week. [facility] NuvaRing 0.12-0.015 mg/24 hr vaginal insert 2021-08 00:00: 00 Yes [id number] 1{each} Insert 1 Each into vagina once every month. Insert vaginally and leave in place for 3 consecutiv e weeks, then remove for 1 week. [facility] NuvaRing 0.12-0.015 mg/24 hr vaginal insert 2021-08 00:00: 00 Yes [id number] 1{each} Insert 1 Each into vagina once every month. Insert vaginally and leave in place for 3 consecutiv e weeks, then remove for 1 week. [facility] NuvaRing 0.12-0.015 mg/24 hr vaginal insert 2021-08 00:00: 00 Yes [id number] 1{each} Insert 1 Each into vagina once every month. Insert vaginally and leave in place for 3 consecutiv e weeks, then remove for 1 week. [facility] NuvaRing 0.12-0.015 mg/24 hr vaginal insert 2021-08 00:00: 00 Yes [id number] 1{each} Insert 1 Each into vagina once every month. Insert vaginally and leave in place for 3 consecutiv e weeks, then remove for 1 week. [facility] NuvaRing 0.12-0.015 mg/24 hr vaginal insert 2021-08 00:00: 00 Yes [id number] 1{each} Insert 1 Each into vagina once every month. Insert vaginally and leave in place for 3 consecutiv e weeks, then remove for 1 week. [facility] NuvaRing 0.12-0.015 mg/24 hr vaginal insert 2021-08 00:00: 00 Yes [id number] 1{each} Insert 1 Each into vagina once every month. Insert vaginally and leave in place for 3 consecutiv e weeks, then remove for 1 week. [facility] NuvaRing 0.12-0.015 mg/24 hr vaginal insert 2021-08 00:00: 00 Yes [id number] 1{each} Insert 1 Each into vagina once every month. Insert vaginally and leave in place for 3 consecutiv e weeks, then remove for 1 week. [facility] NuvaRing 0.12-0.015 mg/24 hr vaginal insert 2021-08 00:00: 00 Yes [id number] 1{each} Insert 1 Each into vagina once every month. Insert vaginally and leave in place for 3 consecutiv e weeks, then remove for 1 week. [facility] NuvaRing 0.12-0.015 mg/24 hr vaginal insert 2021-08 00:00: 00 Yes [id number] 1{each} Insert 1 Each into vagina once every month. Insert vaginally and leave in place for 3 consecutiv e weeks, then remove for 1 week. [facility] NuvaRing 0.12-0.015 mg/24 hr vaginal insert 2021-08 00:00: 00 Yes [id number] 1{each} Insert 1 Each into vagina once every month. Insert vaginally and leave in place for 3 consecutiv e weeks, then remove for 1 week. [facility] NuvaRing 0.12-0.015 mg/24 hr vaginal insert 2021-08 00:00: 00 Yes [id number] 1{each} Insert 1 Each into vagina once every month. Insert vaginally and leave in place for 3 consecutiv e weeks, then remove for 1 week. [facility] NuvaRing 0.12-0.015 mg/24 hr vaginal insert 2021-08 00:00: 00 Yes [id number] 1{each} Insert 1 Each into vagina once every month. Insert vaginally and leave in place for 3 consecutiv e weeks, then remove for 1 week. [facility] NuvaRing 0.12-0.015 mg/24 hr vaginal insert 2021-08 00:00: 00 Yes [id number] 1{each} Insert 1 Each into vagina once every month. Insert vaginally and leave in place for 3 consecutiv e weeks, then remove for 1 week. [facility] NuvaRing 0.12-0.015 mg/24 hr vaginal insert 2021-08 00:00: 00 Yes [id number] 1{each} Insert 1 Each into vagina once every month. Insert vaginally and leave in place for 3 consecutiv e weeks, then remove for 1 week. [facility] NuvaRing 0.12-0.015 mg/24 hr vaginal insert 2021-08 00:00: 00 Yes [id number] 1{each} Insert 1 Each into vagina once every month. Insert vaginally and leave in place for 3 consecutiv e weeks, then remove for 1 week. [facility] NuvaRing 0.12-0.015 mg/24 hr vaginal insert 2021-08 00:00: 00 Yes [id number] 1{each} Insert 1 Each into vagina once every month. Insert vaginally and leave in place for 3 consecutiv e weeks, then remove for 1 week. [facility] NuvaRing 0.12-0.015 mg/24 hr vaginal insert 2021-08 00:00: 00 Yes [id number] 1{each} Insert 1 Each into vagina once every month. Insert vaginally and leave in place for 3 consecutiv e weeks, then remove for 1 week. [facility] NuvaRing 0.12-0.015 mg/24 hr vaginal insert 2021-08 00:00: 00 Yes [id number] 1{each} Insert 1 Each into vagina once every month. Insert vaginally and leave in place for 3 consecutiv e weeks, then remove for 1 week. [facility] NuvaRing 0.12-0.015 mg/24 hr vaginal insert 2021-08 00:00: 00 Yes [id number] 1{each} Insert 1 Each into vagina once every month. Insert vaginally and leave in place for 3 consecutiv e weeks, then remove for 1 week. [facility] NuvaRing 0.12-0.015 mg/24 hr vaginal insert 2021-08 00:00: 00 Yes [id number] 1{each} Insert 1 Each into vagina once every month. Insert vaginally and leave in place for 3 consecutiv e weeks, then remove for 1 week. [facility] NuvaRing 0.12-0.015 mg/24 hr vaginal insert 2021-08 00:00: 00 Yes [id number] 1{each} Insert 1 Each into vagina once every month. Insert vaginally and leave in place for 3 consecutiv e weeks, then remove for 1 week. [facility] NuvaRing 0.12-0.015 mg/24 hr vaginal insert 2021-08 00:00: 00 Yes [id number] 1{each} Insert 1 Each into vagina once every month. Insert vaginally and leave in place for 3 consecutiv e weeks, then remove for 1 week. [facility] NuvaRing 0.12-0.015 mg/24 hr vaginal insert 2021-08 00:00: 00 Yes [id number] 1{each} Insert 1 Each into vagina once every month. Insert vaginally and leave in place for 3 consecutiv e weeks, then remove for 1 week. [facility] NuvaRing 0.12-0.015 mg/24 hr vaginal insert 2021-08 00:00: 00 Yes [id number] 1{each} Insert 1 Each into vagina once every month. Insert vaginally and leave in place for 3 consecutiv e weeks, then remove for 1 week. [facility] NuvaRing 0.12-0.015 mg/24 hr vaginal insert 2021-08 00:00: 00 Yes [id number] 1{each} Insert 1 Each into vagina once every month. Insert vaginally and leave in place for 3 consecutiv e weeks, then remove for 1 week. [facility] NuvaRing 0.12-0.015 mg/24 hr vaginal insert 2021-08 00:00: 00 Yes [id number] 1{each} Insert 1 Each into vagina once every month. Insert vaginally and leave in place for 3 consecutiv e weeks, then remove for 1 week. [facility] NuvaRing 0.12-0.015 mg/24 hr vaginal insert 2021-08 00:00: 00 Yes [id number] 1{each} Insert 1 Each into vagina once every month. Insert vaginally and leave in place for 3 consecutiv e weeks, then remove for 1 week. [facility] NuvaRing 0.12-0.015 mg/24 hr vaginal insert 2021-08 00:00: 00 Yes [id number] 1{each} Insert 1 Each into vagina once every month. Insert vaginally and leave in place for 3 consecutiv e weeks, then remove for 1 week. [facility] NuvaRing 0.12-0.015 mg/24 hr vaginal insert 2021-08 00:00: 00 Yes [id number] 1{each} Insert 1 Each into vagina once every month. Insert vaginally and leave in place for 3 consecutiv e weeks, then remove for 1 week. [facility] NuvaRing 0.12-0.015 mg/24 hr vaginal insert 2021-08 00:00: 00 Yes [id number] 1{each} Insert 1 Each into vagina once every month. Insert vaginally and leave in place for 3 consecutiv e weeks, then remove for 1 week. [facility] NuvaRing 0.12-0.015 mg/24 hr vaginal insert 2021-08 00:00: 00 Yes [id number] 1{each} Insert 1 Each into vagina once every month. Insert vaginally and leave in place for 3 consecutiv e weeks, then remove for 1 week. [facility] NuvaRing 0.12-0.015 mg/24 hr vaginal insert 2021-08 00:00: 00 Yes [id number] 1{each} Insert 1 Each into vagina once every month. Insert vaginally and leave in place for 3 consecutiv e weeks, then remove for 1 week. [facility] NuvaRing 0.12-0.015 mg/24 hr vaginal insert 2021-08 00:00: 00 Yes [id number] 1{each} Insert 1 Each into vagina once every month. Insert vaginally and leave in place for 3 consecutiv e weeks, then remove for 1 week. [facility] NuvaRing 0.12-0.015 mg/24 hr vaginal insert 2021-08 00:00: 00 02-05 00:00 :00 No [id number] 1{each} Insert 1 Each into vagina once every month. Insert vaginally and leave in place for 3 consecutiv e weeks, then remove for 1 week. [facility] NuvaRing 0.12-0.015 mg/24 hr vaginal insert 2021-08 00:00: 00 02-05 00:00 :00 No [id number] 1{each} Insert 1 Each into vagina once every month. Insert vaginally and leave in place for 3 consecutiv e weeks, then remove for 1 week. [facility] NuvaRing 0.12-0.015 mg/24 hr vaginal insert 2021-08 00:00: 00 02-05 00:00 :00 No [id number] 1{each} Insert 1 Each into vagina once every month. Insert vaginally and leave in place for 3 consecutiv e weeks, then remove for 1 week. [facility] NuvaRing 0.12-0.015 mg/24 hr vaginal insert 2021-08 00:00: 00 02-05 00:00 :00 No [id number] 1{each} Insert 1 Each into vagina once every month. Insert vaginally and leave in place for 3 consecutiv e weeks, then remove for 1 week. [facility] NuvaRing 0.12-0.015 mg/24 hr vaginal insert 2021-08 00:00: 00 02-05 00:00 :00 No [id number] 1{each} Insert 1 Each into vagina once every month. Insert vaginally and leave in place for 3 consecutiv e weeks, then remove for 1 week. [facility] lactated ringers IV infusion 500 mL 2021-08 21:45: 00 06-30 20:39 :00 No [id number] 500mL [facility] lactated ringers IV infusion 500 mL 2021-08 21:45: 00 06-30 20:39 :00 No [id number] 500mL at 20 mL/hr, 500 mL, IV Infusion, ONCE, 1 dose, On Sun06/30/22 at 1545, Routine [facility] lactated ringers IV infusion 500 mL 2021-08 21:45: 00 06-30 20:39 :00 No [id number] 500mL [facility] lactated ringers IV infusion 500 mL 2021-08 21:45: 00 06-30 20:39 :00 No [id number] 500mL at 20 mL/hr, 500 mL, IV Infusion, ONCE, 1 dose, On Sun06/30/22 at 1545, Routine [facility] lidocaine 1% (PF) (XYLOCAINE) injection 10 mL 2021-08 20:37: 00 06-30 20:37 :00 No [id number] [facility]mL [facility] triamcinolo ne acetonide (KENALOG) injection 80 mg 2021-08 20:37: 00 06-30 20:38 :00 No [id number] 80mg [facility] triamcinolo ne acetonide (KENALOG) injection 80 mg 2021-08 20:37: 00 06-30 20:38 :00 No [id number] 80mg 80 mg, Infiltrati on, ONCE, 1 dose, On Sun06/30/22 at 1445, Routine [facility] lidocaine 1% (PF) (XYLOCAINE) injection 10 mL 2021-08 20:37: 00 06-30 20:37 :00 No [id number] 10mL 10 mL, Infiltrati on, ONCE, 1 dose, On Sun06/30/22 at 1445, Routine [facility] lidocaine 1% (PF) (XYLOCAINE) injection 10 mL 2021-08 20:37: 00 06-30 20:37 :00 No [id number] 10mL [facility] triamcinolo ne acetonide (KENALOG) injection 80 mg 2021-08 20:37: 00 06-30 20:38 :00 No [id number] 80mg [facility] triamcinolo ne acetonide (KENALOG) injection 80 mg 2021-08 20:37: 00 06-30 20:38 :00 No [id number] 80mg 80 mg, Infiltrati on, ONCE, 1 dose, On Sun06/30/22 at 1445, Routine [facility] lidocaine 1% (PF) (XYLOCAINE) injection 10 mL 2021-08 20:37: 00 06-30 20:37 :00 No [id number] 10mL 10 mL, Infiltrati on, ONCE, 1 dose, On Sun06/30/22 at 1445, Routine [facility] bupivacaine (preserv free) (SENSORCAIN E MPF) 0.25 % (2.5 mg/mL) injection 4 mL 2021-08 20:36: 00 06-30 20:38 :00 No [id number] 4mL [facility] bupivacaine (preserv free) (SENSORCAIN E MPF) 0.25 % (2.5 mg/mL) injection 4 mL 2021-08 20:36: 00 06-30 20:38 :00 No [id number] 4mL 4 mL, Infiltrati on, ONCE, 1 dose, On Sun06/30/22 at 1445, Routine [facility] bupivacaine (preserv free) (SENSORCAIN E MPF) 0.25 % (2.5 mg/mL) injection 4 mL 2021-08 20:36: 00 06-30 20:38 :00 No [id number] 4mL [facility] bupivacaine (preserv free) (SENSORCAIN E MPF) 0.25 % (2.5 mg/mL) injection 4 mL 2021-08 20:36: 00 06-30 20:38 :00 No [id number] 4mL 4 mL, Infiltrati on, ONCE, 1 dose, On Sun06/30/22 at 1445, Routine [facility] HYDROXYZINE 25 mg tablet 2021-08 00:00: 00 Yes [id number] TAKE 1 TABLET BY MOUTH EVERY 8 HOURS NEEDED FOR ITCHING [facility] PROMETHAZIN E 12.5 mg tablet 2021-08 00:00: 00 Yes [id number] TAKE 1 TABLET BY MOUTH ONCE DAILY NEEDED FOR NAUSEA AND VOMITING [facility] HYDROXYZINE 25 mg tablet 2021-08 00:00: 00 Yes [id number] TAKE 1 TABLET BY MOUTH EVERY 8 HOURS NEEDED FOR ITCHING [facility] PROMETHAZIN E 12.5 mg tablet 2021-08 00:00: 00 Yes [id number] TAKE 1 TABLET BY MOUTH ONCE DAILY NEEDED FOR NAUSEA AND VOMITING [facility] HYDROXYZINE 25 mg tablet 2021-08 00:00: 00 Yes [id number] TAKE 1 TABLET BY MOUTH EVERY 8 HOURS NEEDED FOR ITCHING [facility] PROMETHAZIN E 12.5 mg tablet 2021-08 00:00: 00 Yes [id number] TAKE 1 TABLET BY MOUTH ONCE DAILY NEEDED FOR NAUSEA AND VOMITING [facility] HYDROXYZINE 25 mg tablet 2021-08 00:00: 00 Yes [id number] TAKE 1 TABLET BY MOUTH EVERY 8 HOURS NEEDED FOR ITCHING [facility] PROMETHAZIN E 12.5 mg tablet 2021-08 00:00: 00 Yes [id number] TAKE 1 TABLET BY MOUTH ONCE DAILY NEEDED FOR NAUSEA AND VOMITING [facility] HYDROXYZINE 25 mg tablet 2021-08 00:00: 00 Yes [id number] TAKE 1 TABLET BY MOUTH EVERY 8 HOURS NEEDED FOR ITCHING [facility] PROMETHAZIN E 12.5 mg tablet 2021-08 00:00: 00 Yes [id number] TAKE 1 TABLET BY MOUTH ONCE DAILY NEEDED FOR NAUSEA AND VOMITING [facility] HYDROXYZINE 25 mg tablet 2021-08 00:00: 00 Yes [id number] TAKE 1 TABLET BY MOUTH EVERY 8 HOURS NEEDED FOR ITCHING [facility] PROMETHAZIN E 12.5 mg tablet 2021-08 00:00: 00 Yes [id number] TAKE 1 TABLET BY MOUTH ONCE DAILY NEEDED FOR NAUSEA AND VOMITING [facility] HYDROXYZINE 25 mg tablet 2021-08 00:00: 00 Yes [id number] TAKE 1 TABLET BY MOUTH EVERY 8 HOURS NEEDED FOR ITCHING [facility] PROMETHAZIN E 12.5 mg tablet 2021-08 00:00: 00 Yes [id number] TAKE 1 TABLET BY MOUTH ONCE DAILY NEEDED FOR NAUSEA AND VOMITING [facility] HYDROXYZINE 25 mg tablet 2021-08 00:00: 00 Yes [id number] TAKE 1 TABLET BY MOUTH EVERY 8 HOURS NEEDED FOR ITCHING [facility] HYDROXYZINE 25 mg tablet 2021-08 00:00: 00 Yes [id number] TAKE 1 TABLET BY MOUTH EVERY 8 HOURS NEEDED FOR ITCHING [facility] HYDROXYZINE 25 mg tablet 2021-08 00:00: 00 Yes [id number] TAKE 1 TABLET BY MOUTH EVERY 8 HOURS NEEDED FOR ITCHING [facility] HYDROXYZINE 25 mg tablet 2021-08 00:00: 00 Yes [id number] TAKE 1 TABLET BY MOUTH EVERY 8 HOURS NEEDED FOR ITCHING [facility] HYDROXYZINE 25 mg tablet 2021-08 00:00: 00 Yes [id number] TAKE 1 TABLET BY MOUTH EVERY 8 HOURS NEEDED FOR ITCHING [facility] HYDROXYZINE 25 mg tablet 2021-08 00:00: 00 Yes [id number] TAKE 1 TABLET BY MOUTH EVERY 8 HOURS NEEDED FOR ITCHING [facility] HYDROXYZINE 25 mg tablet 2021-08 00:00: 00 Yes [id number] TAKE 1 TABLET BY MOUTH EVERY 8 HOURS NEEDED FOR ITCHING [facility] HYDROXYZINE 25 mg tablet 2021-08 00:00: 00 Yes [id number] TAKE 1 TABLET BY MOUTH EVERY 8 HOURS NEEDED FOR ITCHING [facility] HYDROXYZINE 25 mg tablet 2021-08 00:00: 00 Yes [id number] TAKE 1 TABLET BY MOUTH EVERY 8 HOURS NEEDED FOR ITCHING [facility] HYDROXYZINE 25 mg tablet 2021-08 00:00: 00 Yes [id number] TAKE 1 TABLET BY MOUTH EVERY 8 HOURS NEEDED FOR ITCHING [facility] HYDROXYZINE 25 mg tablet 2021-08 00:00: 00 Yes [id number] TAKE 1 TABLET BY MOUTH EVERY 8 HOURS NEEDED FOR ITCHING [facility] HYDROXYZINE 25 mg tablet 2021-08 00:00: 00 Yes [id number] TAKE 1 TABLET BY MOUTH EVERY 8 HOURS NEEDED FOR ITCHING [facility] HYDROXYZINE 25 mg tablet 2021-08 00:00: 00 Yes [id number] TAKE 1 TABLET BY MOUTH EVERY 8 HOURS NEEDED FOR ITCHING [facility] HYDROXYZINE 25 mg tablet 2021-08 00:00: 00 Yes [id number] TAKE 1 TABLET BY MOUTH EVERY 8 HOURS NEEDED FOR ITCHING [facility] HYDROXYZINE 25 mg tablet 2021-08 00:00: 00 Yes [id number] TAKE 1 TABLET BY MOUTH EVERY 8 HOURS NEEDED FOR ITCHING [facility] HYDROXYZINE 25 mg tablet 2021-08 00:00: 00 08-16 00:00 :00 No [id number] TAKE 1 TABLET BY MOUTH EVERY 8 HOURS NEEDED FOR ITCHING [facility] HYDROXYZINE 25 mg tablet 2021-08 00:00: 00 08-16 00:00 :00 No [id number] TAKE 1 TABLET BY MOUTH EVERY 8 HOURS NEEDED FOR ITCHING [facility] HYDROXYZINE 25 mg tablet 2021-08 00:00: 00 08-16 00:00 :00 No [id number] TAKE 1 TABLET BY MOUTH EVERY 8 HOURS NEEDED FOR ITCHING [facility] HYDROXYZINE 25 mg tablet 2021-08 00:00: 00 08-16 00:00 :00 No [id number] TAKE 1 TABLET BY MOUTH EVERY 8 HOURS NEEDED FOR ITCHING [facility] HYDROXYZINE 25 mg tablet 2021-08 00:00: 00 08-16 00:00 :00 No [id number] TAKE 1 TABLET BY MOUTH EVERY 8 HOURS NEEDED FOR ITCHING [facility] HYDROXYZINE 25 mg tablet 2021-08 00:00: 00 08-16 00:00 :00 No [id number] TAKE 1 TABLET BY MOUTH EVERY 8 HOURS NEEDED FOR ITCHING [facility] PROMETHAZIN E 12.5 mg tablet 2021-08 00:00: 00 07-17 00:00 :00 No [id number] TAKE 1 TABLET BY MOUTH ONCE DAILY NEEDED FOR NAUSEA AND VOMITING [facility] PROMETHAZIN E 12.5 mg tablet 2021-08 00:00: 00 07-17 00:00 :00 No [id number] TAKE 1 TABLET BY MOUTH ONCE DAILY NEEDED FOR NAUSEA AND VOMITING [facility] PROMETHAZIN E 12.5 mg tablet 2021-08 00:00: 00 07-17 00:00 :00 No [id number] TAKE 1 TABLET BY MOUTH ONCE DAILY NEEDED FOR NAUSEA AND VOMITING [facility] PROMETHAZIN E 12.5 mg tablet 2021-08 1-16 00:00: 00 07-17 00:00 :00 No [id number] TAKE 1 TABLET BY MOUTH ONCE DAILY NEEDED FOR NAUSEA AND VOMITING [facility] proMETHazin e 12.5 mg tablet 2021-08 0-10 00:00: 00 Yes [id number] 12.5mg Take 1 tablet by mouth once daily as needed for Nausea and Vomiting (N/V). [facility] proMETHazin e 12.5 mg tablet 2021-08 0-10 00:00: 00 Yes [id number] 12.5mg Take 1 tablet by mouth once daily as needed for Nausea and Vomiting (N/V). [facility] proMETHazin e 12.5 mg tablet 2021-08 0-10 00:00: 00 Yes [id number] 12.5mg Take 1 tablet by mouth once daily as needed for Nausea and Vomiting (N/V). [facility] proMETHazin e 12.5 mg tablet 2021-08 0-10 00:00: 00 Yes [id number] 12.5mg Take 1 tablet by mouth once daily as needed for Nausea and Vomiting (N/V). [facility] proMETHazin e 12.5 mg tablet 2021-08 0-10 00:00: 00 Yes [id number] 12.5mg Take 1 tablet by mouth once daily as needed for Nausea and Vomiting (N/V). [facility] proMETHazin e 12.5 mg tablet 2021-08 0-10 00:00: 00 Yes [id number] 12.5mg Take 1 tablet by mouth once daily as needed for Nausea and Vomiting (N/V). [facility] proMETHazin e 12.5 mg tablet 2021-08 0-10 00:00: 00 06-28 00:00 :00 No [id number] 12.5mg Take 1 tablet by mouth once daily as needed for Nausea and Vomiting (N/V). [facility] gabapentin 400 mg capsule 2021-08 0-04 00:00: 00 Yes [id number] 9100 400mg Take 1 capsule by mouth in the morning and 1 capsule at noon and 1 capsule in the evening. [facility] tiZANidine 4 mg tablet 2021-08 0-04 00:00: 00 Yes [id number] 9100 4mg Take 1 tablet by mouth 3 (three) times daily as needed (muscle spasm). [facility] meloxicam 15 mg tablet 2021-08 0- 00:00: 00 Yes [id number] 15mg Take 1 tablet by mouth in the morning. [facility] gabapentin 400 mg capsule 2021-08 0- 00:00: 00 Yes [id number] 9100 400mg Take 1 capsule by mouth in the morning and 1 capsule at noon and 1 capsule in the evening. [facility] tiZANidine 4 mg tablet 2021-08 0- 00:00: 00 Yes [id number] 9100 4mg Take 1 tablet by mouth 3 (three) times daily as needed (muscle spasm). [facility] meloxicam 15 mg tablet 2021-08 0- 00:00: 00 Yes [id number] 15mg Take 1 tablet by mouth in the morning. [facility] gabapentin 400 mg capsule 2021-08 0- 00:00: 00 Yes [id number] 9100 400mg Take 1 capsule by mouth in the morning and 1 capsule at noon and 1 capsule in the evening. [facility] tiZANidine 4 mg tablet 2021-08 0- 00:00: 00 Yes [id number] 9100 4mg Take 1 tablet by mouth 3 (three) times daily as needed (muscle spasm). [facility] meloxicam 15 mg tablet 2021-08 0- 00:00: 00 Yes [id number] 15mg Take 1 tablet by mouth in the morning. [facility] gabapentin 400 mg capsule 2021-08 0-04 00:00: 00 Yes [id number] 9100 400mg Take 1 capsule by mouth in the morning and 1 capsule at noon and 1 capsule in the evening. [facility] tiZANidine 4 mg tablet 2021-08 0-04 00:00: 00 Yes [id number] 9100 4mg Take 1 tablet by mouth 3 (three) times daily as needed (muscle spasm). [facility] meloxicam 15 mg tablet 2021-08 0-04 00:00: 00 Yes [id number] 15mg Take 1 tablet by mouth in the morning. [facility] gabapentin 400 mg capsule 2021-08 0- 00:00: 00 Yes [id number] 9100 400mg Take 1 capsule by mouth in the morning and 1 capsule at noon and 1 capsule in the evening. [facility] tiZANidine 4 mg tablet 2021-08 0- 00:00: 00 Yes [id number] 9100 4mg Take 1 tablet by mouth 3 (three) times daily as needed (muscle spasm). [facility] meloxicam 15 mg tablet 2021-08 0- 00:00: 00 Yes [id number] 15mg Take 1 tablet by mouth in the morning. [facility] gabapentin 400 mg capsule 2021-08 0- 00:00: 00 Yes [id number] 9100 400mg Take 1 capsule by mouth in the morning and 1 capsule at noon and 1 capsule in the evening. [facility] tiZANidine 4 mg tablet 2021-08 0- 00:00: 00 Yes [id number] 9100 4mg Take 1 tablet by mouth 3 (three) times daily as needed (muscle spasm). [facility] meloxicam 15 mg tablet 2021-08 0- 00:00: 00 Yes [id number] 15mg Take 1 tablet by mouth in the morning. [facility] gabapentin 400 mg capsule 2021-08 0-04 00:00: 00 Yes [id number] 9100 400mg Take 1 capsule by mouth in the morning and 1 capsule at noon and 1 capsule in the evening. [facility] tiZANidine 4 mg tablet 2021-08 0-04 00:00: 00 Yes [id number] 9100 4mg Take 1 tablet by mouth 3 (three) times daily as needed (muscle spasm). [facility] meloxicam 15 mg tablet 2021-08 0-04 00:00: 00 Yes [id number] 15mg Take 1 tablet by mouth in the morning. [facility] gabapentin 400 mg capsule 2021-08 0-04 00:00: 00 Yes [id number] 9100 400mg Take 1 capsule by mouth in the morning and 1 capsule at noon and 1 capsule in the evening. [facility] tiZANidine 4 mg tablet 2021-08 0- 00:00: 00 Yes [id number] 9100 4mg Take 1 tablet by mouth 3 (three) times daily as needed (muscle spasm). [facility] gabapentin 400 mg capsule 2021-08 0 00:00: 00 Yes [id number] 9100 400mg Take 1 capsule by mouth in the morning and 1 capsule at noon and 1 capsule in the evening. [facility] tiZANidine 4 mg tablet 2021-08 0 00:00: 00 Yes [id number] 9100 4mg Take 1 tablet by mouth 3 (three) times daily as needed (muscle spasm). [facility] gabapentin 400 mg capsule 2021-08 0 00:00: 00 Yes [id number] 9100 400mg Take 1 capsule by mouth in the morning and 1 capsule at noon and 1 capsule in the evening. [facility] tiZANidine 4 mg tablet 2021-08 0 00:00: 00 Yes [id number] 9100 4mg Take 1 tablet by mouth 3 (three) times daily as needed (muscle spasm). [facility] gabapentin 400 mg capsule 2021-08 0 00:00: 00 Yes [id number] 9100 400mg Take 1 capsule by mouth in the morning and 1 capsule at noon and 1 capsule in the evening. [facility] tiZANidine 4 mg tablet 2021-08 0- 00:00: 00 Yes [id number] 9100 4mg Take 1 tablet by mouth 3 (three) times daily as needed (muscle spasm). [facility] gabapentin 400 mg capsule 2021-08 0- 00:00: 00 Yes [id number] 9100 400mg Take 1 capsule by mouth in the morning and 1 capsule at noon and 1 capsule in the evening. [facility] tiZANidine 4 mg tablet 2021-08 0- 00:00: 00 Yes [id number] 9100 4mg Take 1 tablet by mouth 3 (three) times daily as needed (muscle spasm). [facility] gabapentin 400 mg capsule 2021-08 0 00:00: 00 Yes [id number] 9100 400mg Take 1 capsule by mouth in the morning and 1 capsule at noon and 1 capsule in the evening. [facility] tiZANidine 4 mg tablet 2021-08 0 00:00: 00 Yes [id number] 9100 4mg Take 1 tablet by mouth 3 (three) times daily as needed (muscle spasm). [facility] gabapentin 400 mg capsule 2021-08 0 00:00: 00 Yes [id number] 9100 400mg Take 1 capsule by mouth in the morning and 1 capsule at noon and 1 capsule in the evening. [facility] tiZANidine 4 mg tablet 2021-08 0 00:00: 00 Yes [id number] 9100 4mg Take 1 tablet by mouth 3 (three) times daily as needed (muscle spasm). [facility] gabapentin 400 mg capsule 2021-08 0 00:00: 00 Yes [id number] 9100 400mg Take 1 capsule by mouth in the morning and 1 capsule at noon and 1 capsule in the evening. [facility] tiZANidine 4 mg tablet 2021-08 0 00:00: 00 Yes [id number] 9100 4mg Take 1 tablet by mouth 3 (three) times daily as needed (muscle spasm). [facility] gabapentin 400 mg capsule 2021-08 0 00:00: 00 Yes [id number] 9100 400mg Take 1 capsule by mouth in the morning and 1 capsule at noon and 1 capsule in the evening. [facility] tiZANidine 4 mg tablet 2021-08 0 00:00: 00 Yes [id number] 9100 4mg Take 1 tablet by mouth 3 (three) times daily as needed (muscle spasm). [facility] gabapentin 400 mg capsule 2021-08 0 00:00: 00 Yes [id number] 9100 400mg Take 1 capsule by mouth in the morning and 1 capsule at noon and 1 capsule in the evening. [facility] tiZANidine 4 mg tablet 2021-08 0- 00:00: 00 Yes [id number] 9100 4mg Take 1 tablet by mouth 3 (three) times daily as needed (muscle spasm). [facility] gabapentin 400 mg capsule 2021-08 0- 00:00: 00 Yes [id number] 9100 400mg Take 1 capsule by mouth in the morning and 1 capsule at noon and 1 capsule in the evening. [facility] tiZANidine 4 mg tablet 2021-08 0- 00:00: 00 Yes [id number] 9100 4mg Take 1 tablet by mouth 3 (three) times daily as needed (muscle spasm). [facility] gabapentin 400 mg capsule 2021-08 0 00:00: 00 Yes [id number] 9100 400mg Take 1 capsule by mouth in the morning and 1 capsule at noon and 1 capsule in the evening. [facility] tiZANidine 4 mg tablet 2021-08 0 00:00: 00 Yes [id number] 9100 4mg Take 1 tablet by mouth 3 (three) times daily as needed (muscle spasm). [facility] gabapentin 400 mg capsule 2021-08 0 00:00: 00 Yes [id number] 9100 400mg Take 1 capsule by mouth in the morning and 1 capsule at noon and 1 capsule in the evening. [facility] tiZANidine 4 mg tablet 2021-08 0 00:00: 00 Yes [id number] 9100 4mg Take 1 tablet by mouth 3 (three) times daily as needed (muscle spasm). [facility] gabapentin 400 mg capsule 2021-08 0- 00:00: 00 Yes [id number] 9100 400mg Take 1 capsule by mouth in the morning and 1 capsule at noon and 1 capsule in the evening. [facility] tiZANidine 4 mg tablet 2021-08 0- 00:00: 00 Yes [id number] 9100 4mg Take 1 tablet by mouth 3 (three) times daily as needed (muscle spasm). [facility] gabapentin 400 mg capsule 2021-08 0- 00:00: 00 Yes [id number] 9100 400mg Take 1 capsule by mouth in the morning and 1 capsule at noon and 1 capsule in the evening. [facility] tiZANidine 4 mg tablet 2021-08 0 00:00: 00 Yes [id number] 9100 4mg Take 1 tablet by mouth 3 (three) times daily as needed (muscle spasm). [facility] gabapentin 400 mg capsule 2021-08 0 00:00: 00 Yes [id number] 9100 400mg Take 1 capsule by mouth in the morning and 1 capsule at noon and 1 capsule in the evening. [facility] gabapentin 400 mg capsule 2021-08 0 00:00: 00 Yes [id number] 9100 400mg Take 1 capsule by mouth in the morning and 1 capsule at noon and 1 capsule in the evening. [facility] gabapentin 400 mg capsule 2021-08 0 00:00: 00 Yes [id number] 9100 400mg Take 1 capsule by mouth in the morning and 1 capsule at noon and 1 capsule in the evening. [facility] gabapentin 400 mg capsule 2021-08 0 00:00: 00 Yes [id number] 9100 400mg Take 1 capsule by mouth in the morning and 1 capsule at noon and 1 capsule in the evening. [facility] gabapentin 400 mg capsule 2021-08 0 00:00: 00 Yes [id number] 9100 400mg Take 1 capsule by mouth in the morning and 1 capsule at noon and 1 capsule in the evening. [facility] gabapentin 400 mg capsule 2021-08 0- 00:00: 00 Yes [id number] 9100 400mg Take 1 capsule by mouth in the morning and 1 capsule at noon and 1 capsule in the evening. [facility] gabapentin 400 mg capsule 2021-08 0- 00:00: 00 Yes [id number] 9100 400mg Take 1 capsule by mouth in the morning and 1 capsule at noon and 1 capsule in the evening. [facility] gabapentin 400 mg capsule 2021-08 0- 00:00: 00 Yes [id number] 9100 400mg Take 1 capsule by mouth in the morning and 1 capsule at noon and 1 capsule in the evening. [facility] gabapentin 400 mg capsule 2021-08 0 00:00: 00 Yes [id number] 9100 400mg Take 1 capsule by mouth in the morning and 1 capsule at noon and 1 capsule in the evening. [facility] gabapentin 400 mg capsule 2021-08 0 00:00: 00 Yes [id number] 9100 400mg Take 1 capsule by mouth in the morning and 1 capsule at noon and 1 capsule in the evening. [facility] gabapentin 400 mg capsule 2021-08 0 00:00: 00 Yes [id number] 9100 400mg Take 1 capsule by mouth in the morning and 1 capsule at noon and 1 capsule in the evening. [facility] gabapentin 400 mg capsule 2021-08 0 00:00: 00 Yes [id number] 9100 400mg Take 1 capsule by mouth in the morning and 1 capsule at noon and 1 capsule in the evening. [facility] tiZANidine 4 mg tablet 2021-08 0 00:00: 00 Yes [id number] 9100 4mg Take 1 tablet by mouth 3 (three) times daily as needed (muscle spasm). [facility] meloxicam 15 mg tablet 2021-08 0 00:00: 00 Yes [id number] 15mg Take 1 tablet by mouth in the morning. [facility] gabapentin 400 mg capsule 2021-08 0 00:00: 00 Yes [id number] 9100 400mg Take 1 capsule by mouth in the morning and 1 capsule at noon and 1 capsule in the evening. [facility] tiZANidine 4 mg tablet 2021-08 0 00:00: 00 Yes [id number] 9100 4mg Take 1 tablet by mouth 3 (three) times daily as needed (muscle spasm). [facility] meloxicam 15 mg tablet 2021-08 0 00:00: 00 Yes [id number] 15mg Take 1 tablet by mouth in the morning. [facility] gabapentin 400 mg capsule 2021-08 0- 00:00: 00 Yes [id number] 9100 400mg Take 1 capsule by mouth in the morning and 1 capsule at noon and 1 capsule in the evening. [facility] tiZANidine 4 mg tablet 2021-08 0-04 00:00: 00 Yes [id number] 9100 4mg Take 1 tablet by mouth 3 (three) times daily as needed (muscle spasm). [facility] meloxicam 15 mg tablet 2021-08 0-04 00:00: 00 Yes [id number] 15mg Take 1 tablet by mouth in the morning. [facility] gabapentin 400 mg capsule 2021-08 0- 00:00: 00 Yes [id number] 9100 400mg Take 1 capsule by mouth in the morning and 1 capsule at noon and 1 capsule in the evening. [facility] tiZANidine 4 mg tablet 2021-08 0- 00:00: 00 Yes [id number] 9100 4mg Take 1 tablet by mouth 3 (three) times daily as needed (muscle spasm). [facility] meloxicam 15 mg tablet 2021-08 0- 00:00: 00 Yes [id number] 15mg Take 1 tablet by mouth in the morning. [facility] gabapentin 400 mg capsule 2021-08 0- 00:00: 00 Yes [id number] 9100 400mg Take 1 capsule by mouth in the morning and 1 capsule at noon and 1 capsule in the evening. [facility] tiZANidine 4 mg tablet 2021-08 0- 00:00: 00 Yes [id number] 9100 4mg Take 1 tablet by mouth 3 (three) times daily as needed (muscle spasm). [facility] meloxicam 15 mg tablet 2021-08 0-04 00:00: 00 Yes [id number] 15mg Take 1 tablet by mouth in the morning. [facility] gabapentin 400 mg capsule 2021-08 0-04 00:00: 00 Yes [id number] 9100 400mg Take 1 capsule by mouth in the morning and 1 capsule at noon and 1 capsule in the evening. [facility] tiZANidine 4 mg tablet 2021-08 0-04 00:00: 00 Yes [id number] 9100 4mg Take 1 tablet by mouth 3 (three) times daily as needed (muscle spasm). [facility] meloxicam 15 mg tablet 2021-08 0 00:00: 00 Yes [id number] 15mg Take 1 tablet by mouth in the morning. [facility] gabapentin 400 mg capsule 2021-08 0 00:00: 00 Yes [id number] 9100 400mg Take 1 capsule by mouth in the morning and 1 capsule at noon and 1 capsule in the evening. [facility] tiZANidine 4 mg tablet 2021-08 0- 00:00: 00 Yes [id number] 9100 4mg Take 1 tablet by mouth 3 (three) times daily as needed (muscle spasm). [facility] meloxicam 15 mg tablet 2021-08 0 00:00: 00 Yes [id number] 15mg Take 1 tablet by mouth in the morning. [facility] gabapentin 400 mg capsule 2021-08 0- 00:00: 00 Yes [id number] 9100 400mg Take 1 capsule by mouth in the morning and 1 capsule at noon and 1 capsule in the evening. [facility] tiZANidine 4 mg tablet 2021-08 0 00:00: 00 Yes [id number] 9100 4mg Take 1 tablet by mouth 3 (three) times daily as needed (muscle spasm). [facility] meloxicam 15 mg tablet 2021-08 0 00:00: 00 Yes [id number] 15mg Take 1 tablet by mouth in the morning. [facility] gabapentin 400 mg capsule 2021-08 0 00:00: 00 Yes [id number] 9100 400mg Take 1 capsule by mouth in the morning and 1 capsule at noon and 1 capsule in the evening. [facility] tiZANidine 4 mg tablet 2021-08 0 00:00: 00 Yes [id number] 9100 4mg Take 1 tablet by mouth 3 (three) times daily as needed (muscle spasm). [facility] meloxicam 15 mg tablet 2021-08 0- 00:00: 00 Yes [id number] 15mg Take 1 tablet by mouth in the morning. [facility] gabapentin 400 mg capsule 2021-08 0- 00:00: 00 Yes [id number] 9100 400mg Take 1 capsule by mouth in the morning and 1 capsule at noon and 1 capsule in the evening. [facility] tiZANidine 4 mg tablet 2021-08 0- 00:00: 00 Yes [id number] 9100 4mg Take 1 tablet by mouth 3 (three) times daily as needed (muscle spasm). [facility] meloxicam 15 mg tablet 2021-08 0- 00:00: 00 Yes [id number] 15mg Take 1 tablet by mouth in the morning. [facility] gabapentin 400 mg capsule 2021-08 0- 00:00: 00 Yes [id number] 9100 400mg Take 1 capsule by mouth in the morning and 1 capsule at noon and 1 capsule in the evening. [facility] tiZANidine 4 mg tablet 2021-08 0- 00:00: 00 Yes [id number] 9100 4mg Take 1 tablet by mouth 3 (three) times daily as needed (muscle spasm). [facility] meloxicam 15 mg tablet 2021-08 0 00:00: 00 Yes [id number] 15mg Take 1 tablet by mouth in the morning. [facility] gabapentin 400 mg capsule 2021-08 0- 00:00: 00 Yes [id number] 9100 400mg Take 1 capsule by mouth in the morning and 1 capsule at noon and 1 capsule in the evening. [facility] tiZANidine 4 mg tablet 2021-08 0 00:00: 00 Yes [id number] 9100 4mg Take 1 tablet by mouth 3 (three) times daily as needed (muscle spasm). [facility] meloxicam 15 mg tablet 2021-08 0 00:00: 00 Yes [id number] 15mg Take 1 tablet by mouth in the morning. [facility] gabapentin 400 mg capsule 2021-08 0- 00:00: 00 Yes [id number] 9100 400mg Take 1 capsule by mouth in the morning and 1 capsule at noon and 1 capsule in the evening. [facility] tiZANidine 4 mg tablet 2021-08 0- 00:00: 00 Yes [id number] 9100 4mg Take 1 tablet by mouth 3 (three) times daily as needed (muscle spasm). [facility] meloxicam 15 mg tablet 2021-08 0- 00:00: 00 Yes [id number] 15mg Take 1 tablet by mouth in the morning. [facility] gabapentin 400 mg capsule 2021-08 0- 00:00: 00 Yes [id number] 9100 400mg Take 1 capsule by mouth in the morning and 1 capsule at noon and 1 capsule in the evening. [facility] tiZANidine 4 mg tablet 2021-08 0- 00:00: 00 Yes [id number] 9100 4mg Take 1 tablet by mouth 3 (three) times daily as needed (muscle spasm). [facility] meloxicam 15 mg tablet 2021-08 0- 00:00: 00 Yes [id number] 15mg Take 1 tablet by mouth in the morning. [facility] gabapentin 400 mg capsule 2021-08 0- 00:00: 00 Yes [id number] 9100 400mg Take 1 capsule by mouth in the morning and 1 capsule at noon and 1 capsule in the evening. [facility] tiZANidine 4 mg tablet 2021-08 0 00:00: 00 Yes [id number] 9100 4mg Take 1 tablet by mouth 3 (three) times daily as needed (muscle spasm). [facility] meloxicam 15 mg tablet 2021-08 0 00:00: 00 Yes [id number] 15mg Take 1 tablet by mouth in the morning. [facility] gabapentin 400 mg capsule 2021-08 0-04 00:00: 00 Yes [id number] 9100 400mg Take 1 capsule by mouth in the morning and 1 capsule at noon and 1 capsule in the evening. [facility] tiZANidine 4 mg tablet 2021-08 0-04 00:00: 00 Yes [id number] 9100 4mg Take 1 tablet by mouth 3 (three) times daily as needed (muscle spasm). [facility] meloxicam 15 mg tablet 2021-08 0-04 00:00: 00 Yes [id number] 15mg Take 1 tablet by mouth in the morning. [facility] gabapentin 400 mg capsule 2021-08 0 00:00: 00 Yes [id number] 9100 400mg Take 1 capsule by mouth in the morning and 1 capsule at noon and 1 capsule in the evening. [facility] tiZANidine 4 mg tablet 2021-08 0 00:00: 00 Yes [id number] 9100 4mg Take 1 tablet by mouth 3 (three) times daily as needed (muscle spasm). [facility] meloxicam 15 mg tablet 2021-08 0- 00:00: 00 Yes [id number] 15mg Take 1 tablet by mouth in the morning. [facility] gabapentin 400 mg capsule 2021-08 0 00:00: 00 Yes [id number] 9100 400mg Take 1 capsule by mouth in the morning and 1 capsule at noon and 1 capsule in the evening. [facility] tiZANidine 4 mg tablet 2021-08 0 00:00: 00 Yes [id number] 9100 4mg Take 1 tablet by mouth 3 (three) times daily as needed (muscle spasm). [facility] meloxicam 15 mg tablet 2021-08 0 00:00: 00 Yes [id number] 15mg Take 1 tablet by mouth in the morning. [facility] gabapentin 400 mg capsule 2021-08 0 00:00: 00 Yes [id number] 9100 400mg Take 1 capsule by mouth in the morning and 1 capsule at noon and 1 capsule in the evening. [facility] tiZANidine 4 mg tablet 2021-08 0 00:00: 00 Yes [id number] 9100 4mg Take 1 tablet by mouth 3 (three) times daily as needed (muscle spasm). [facility] meloxicam 15 mg tablet 2021-08 0- 00:00: 00 Yes [id number] 15mg Take 1 tablet by mouth in the morning. [facility] gabapentin 400 mg capsule 2021-08 0- 00:00: 00 Yes [id number] 9100 400mg Take 1 capsule by mouth in the morning and 1 capsule at noon and 1 capsule in the evening. [facility] tiZANidine 4 mg tablet 2021-08 0-04 00:00: 00 Yes [id number] 9100 4mg Take 1 tablet by mouth 3 (three) times daily as needed (muscle spasm). [facility] meloxicam 15 mg tablet 2021-08 0- 00:00: 00 Yes [id number] 15mg Take 1 tablet by mouth in the morning. [facility] gabapentin 400 mg capsule 2021-08 0- 00:00: 00 Yes [id number] 9100 400mg Take 1 capsule by mouth in the morning and 1 capsule at noon and 1 capsule in the evening. [facility] tiZANidine 4 mg tablet 2021-08 0 00:00: 00 Yes [id number] 9100 4mg Take 1 tablet by mouth 3 (three) times daily as needed (muscle spasm). [facility] meloxicam 15 mg tablet 2021-08 0 00:00: 00 Yes [id number] 15mg Take 1 tablet by mouth in the morning. [facility] gabapentin 400 mg capsule 2021-08 0 00:00: 00 Yes [id number] 9100 400mg Take 1 capsule by mouth in the morning and 1 capsule at noon and 1 capsule in the evening. [facility] tiZANidine 4 mg tablet 2021-08 0 00:00: 00 Yes [id number] 9100 4mg Take 1 tablet by mouth 3 (three) times daily as needed (muscle spasm). [facility] meloxicam 15 mg tablet 2021-08 0 00:00: 00 Yes [id number] 15mg Take 1 tablet by mouth in the morning. [facility] gabapentin 400 mg capsule 2021-08 0- 00:00: 00 Yes [id number] 9100 400mg Take 1 capsule by mouth in the morning and 1 capsule at noon and 1 capsule in the evening. [facility] tiZANidine 4 mg tablet 2021-08 0- 00:00: 00 Yes [id number] 9100 4mg Take 1 tablet by mouth 3 (three) times daily as needed (muscle spasm). [facility] meloxicam 15 mg tablet 2021-08 0- 00:00: 00 Yes [id number] 15mg Take 1 tablet by mouth in the morning. [facility] gabapentin 400 mg capsule 2021-08 0-04 00:00: 00 Yes [id number] 9100 400mg Take 1 capsule by mouth in the morning and 1 capsule at noon and 1 capsule in the evening. [facility] tiZANidine 4 mg tablet 2021-08 0- 00:00: 00 Yes [id number] 9100 4mg Take 1 tablet by mouth 3 (three) times daily as needed (muscle spasm). [facility] meloxicam 15 mg tablet 2021-08 0- 00:00: 00 Yes [id number] 15mg Take 1 tablet by mouth in the morning. [facility] gabapentin 400 mg capsule 2021-08 0- 00:00: 00 Yes [id number] 9100 400mg Take 1 capsule by mouth in the morning and 1 capsule at noon and 1 capsule in the evening. [facility] tiZANidine 4 mg tablet 2021-08 0- 00:00: 00 Yes [id number] 9100 4mg Take 1 tablet by mouth 3 (three) times daily as needed (muscle spasm). [facility] meloxicam 15 mg tablet 2021-08 0- 00:00: 00 Yes [id number] 15mg Take 1 tablet by mouth in the morning. [facility] gabapentin 400 mg capsule 2021-08 0- 00:00: 00 Yes [id number] 9100 400mg Take 1 capsule by mouth in the morning and 1 capsule at noon and 1 capsule in the evening. [facility] tiZANidine 4 mg tablet 2021-08 0-04 00:00: 00 Yes [id number] 9100 4mg Take 1 tablet by mouth 3 (three) times daily as needed (muscle spasm). [facility] meloxicam 15 mg tablet 2021-08 0-04 00:00: 00 Yes [id number] 15mg Take 1 tablet by mouth in the morning. [facility] gabapentin 400 mg capsule 2021-08 0-04 00:00: 00 Yes [id number] 9100 400mg Take 1 capsule by mouth in the morning and 1 capsule at noon and 1 capsule in the evening. [facility] tiZANidine 4 mg tablet 2021-08 0-04 00:00: 00 Yes [id number] 9100 4mg Take 1 tablet by mouth 3 (three) times daily as needed (muscle spasm). [facility] meloxicam 15 mg tablet 2021-08 0-04 00:00: 00 Yes [id number] 15mg Take 1 tablet by mouth in the morning. [facility] gabapentin 400 mg capsule 2021-08 0-04 00:00: 00 Yes [id number] 9100 400mg Take 1 capsule by mouth in the morning and 1 capsule at noon and 1 capsule in the evening. [facility] tiZANidine 4 mg tablet 2021-08 0-04 00:00: 00 Yes [id number] 9100 4mg Take 1 tablet by mouth 3 (three) times daily as needed (muscle spasm). [facility] meloxicam 15 mg tablet 2021-08 0- 00:00: 00 Yes [id number] 15mg Take 1 tablet by mouth in the morning. [facility] gabapentin 400 mg capsule 2021-08 0- 00:00: 00 Yes [id number] 9100 400mg Take 1 capsule by mouth in the morning and 1 capsule at noon and 1 capsule in the evening. [facility] tiZANidine 4 mg tablet 2021-08 0-04 00:00: 00 Yes [id number] 9100 4mg Take 1 tablet by mouth 3 (three) times daily as needed (muscle spasm). [facility] meloxicam 15 mg tablet 2021-08 0-04 00:00: 00 Yes [id number] 15mg Take 1 tablet by mouth in the morning. [facility] gabapentin 400 mg capsule 2021-08 0-04 00:00: 00 Yes [id number] 9100 400mg Take 1 capsule by mouth in the morning and 1 capsule at noon and 1 capsule in the evening. [facility] tiZANidine 4 mg tablet 2021-08 0-04 00:00: 00 Yes [id number] 9100 4mg Take 1 tablet by mouth 3 (three) times daily as needed (muscle spasm). [facility] meloxicam 15 mg tablet 2021-08 0-04 00:00: 00 Yes [id number] 15mg Take 1 tablet by mouth in the morning. [facility] gabapentin 400 mg capsule 2021-08 0- 00:00: 00 Yes [id number] 9100 400mg Take 1 capsule by mouth in the morning and 1 capsule at noon and 1 capsule in the evening. [facility] tiZANidine 4 mg tablet 2021-08 0- 00:00: 00 Yes [id number] 9100 4mg Take 1 tablet by mouth 3 (three) times daily as needed (muscle spasm). [facility] meloxicam 15 mg tablet 2021-08 0- 00:00: 00 Yes [id number] 15mg Take 1 tablet by mouth in the morning. [facility] gabapentin 400 mg capsule 2021-08 0- 00:00: 00 Yes [id number] 9100 400mg Take 1 capsule by mouth in the morning and 1 capsule at noon and 1 capsule in the evening. [facility] tiZANidine 4 mg tablet 2021-08 0- 00:00: 00 Yes [id number] 9100 4mg Take 1 tablet by mouth 3 (three) times daily as needed (muscle spasm). [facility] meloxicam 15 mg tablet 2021-08 0 00:00: 00 Yes [id number] 15mg Take 1 tablet by mouth in the morning. [facility] gabapentin 400 mg capsule 2021-08 0- 00:00: 00 Yes [id number] 9100 400mg Take 1 capsule by mouth in the morning and 1 capsule at noon and 1 capsule in the evening. [facility] tiZANidine 4 mg tablet 2021-08 0- 00:00: 00 Yes [id number] 9100 4mg Take 1 tablet by mouth 3 (three) times daily as needed (muscle spasm). [facility] meloxicam 15 mg tablet 2021-08 0- 00:00: 00 Yes [id number] 15mg Take 1 tablet by mouth in the morning. [facility] gabapentin 400 mg capsule 2021-08 0-04 00:00: 00 Yes [id number] 9100 400mg Take 1 capsule by mouth in the morning and 1 capsule at noon and 1 capsule in the evening. [facility] tiZANidine 4 mg tablet 2021-08 0- 00:00: 00 Yes [id number] 9100 4mg Take 1 tablet by mouth 3 (three) times daily as needed (muscle spasm). [facility] meloxicam 15 mg tablet 2021-08 0- 00:00: 00 Yes [id number] 15mg Take 1 tablet by mouth in the morning. [facility] gabapentin 400 mg capsule 2021-08 0- 00:00: 00 Yes [id number] 9100 400mg Take 1 capsule by mouth in the morning and 1 capsule at noon and 1 capsule in the evening. [facility] tiZANidine 4 mg tablet 2021-08 0- 00:00: 00 Yes [id number] 9100 4mg Take 1 tablet by mouth 3 (three) times daily as needed (muscle spasm). [facility] meloxicam 15 mg tablet 2021-08 0 00:00: 00 Yes [id number] 15mg Take 1 tablet by mouth in the morning. [facility] gabapentin 400 mg capsule 2021-08 0- 00:00: 00 Yes [id number] 9100 400mg Take 1 capsule by mouth in the morning and 1 capsule at noon and 1 capsule in the evening. [facility] tiZANidine 4 mg tablet 2021-08 0 00:00: 00 Yes [id number] 9100 4mg Take 1 tablet by mouth 3 (three) times daily as needed (muscle spasm). [facility] meloxicam 15 mg tablet 2021-08 0- 00:00: 00 Yes [id number] 15mg Take 1 tablet by mouth in the morning. [facility] gabapentin 400 mg capsule 2021-08 0- 00:00: 00 Yes [id number] 9100 400mg Take 1 capsule by mouth in the morning and 1 capsule at noon and 1 capsule in the evening. [facility] tiZANidine 4 mg tablet 2021-08 0- 00:00: 00 Yes [id number] 9100 4mg Take 1 tablet by mouth 3 (three) times daily as needed (muscle spasm). [facility] meloxicam 15 mg tablet 2021-08 0- 00:00: 00 Yes [id number] 15mg Take 1 tablet by mouth in the morning. [facility] gabapentin 400 mg capsule 2021-08 0- 00:00: 00 Yes [id number] 9100 400mg Take 1 capsule by mouth in the morning and 1 capsule at noon and 1 capsule in the evening. [facility] tiZANidine 4 mg tablet 2021-08 0- 00:00: 00 Yes [id number] 9100 4mg Take 1 tablet by mouth 3 (three) times daily as needed (muscle spasm). [facility] meloxicam 15 mg tablet 2021-08 0- 00:00: 00 Yes [id number] 15mg Take 1 tablet by mouth in the morning. [facility] gabapentin 400 mg capsule 2021-08 0 00:00: 00 Yes [id number] 9100 400mg Take 1 capsule by mouth in the morning and 1 capsule at noon and 1 capsule in the evening. [facility] tiZANidine 4 mg tablet 2021-08 0 00:00: 00 Yes [id number] 9100 4mg Take 1 tablet by mouth 3 (three) times daily as needed (muscle spasm). [facility] meloxicam 15 mg tablet 2021-08 0 00:00: 00 Yes [id number] 15mg Take 1 tablet by mouth in the morning. [facility] gabapentin 400 mg capsule 2021-08 0-04 00:00: 00 Yes [id number] 9100 400mg Take 1 capsule by mouth in the morning and 1 capsule at noon and 1 capsule in the evening. [facility] tiZANidine 4 mg tablet 2021-08 0-04 00:00: 00 Yes [id number] 9100 4mg Take 1 tablet by mouth 3 (three) times daily as needed (muscle spasm). [facility] meloxicam 15 mg tablet 2021-08 0-04 00:00: 00 Yes [id number] 15mg Take 1 tablet by mouth in the morning. [facility] gabapentin 400 mg capsule 2021-08 0 00:00: 00 Yes [id number] 9100 400mg Take 1 capsule by mouth in the morning and 1 capsule at noon and 1 capsule in the evening. [facility] tiZANidine 4 mg tablet 2021-08 0 00:00: 00 Yes [id number] 9100 4mg Take 1 tablet by mouth 3 (three) times daily as needed (muscle spasm). [facility] meloxicam 15 mg tablet 2021-08 0 00:00: 00 Yes [id number] 15mg Take 1 tablet by mouth in the morning. [facility] gabapentin 400 mg capsule 2021-08 0 00:00: 00 Yes [id number] 9100 400mg Take 1 capsule by mouth in the morning and 1 capsule at noon and 1 capsule in the evening. [facility] tiZANidine 4 mg tablet 2021-08 0 00:00: 00 Yes [id number] 9100 4mg Take 1 tablet by mouth 3 (three) times daily as needed (muscle spasm). [facility] meloxicam 15 mg tablet 2021-08 0 00:00: 00 Yes [id number] 15mg Take 1 tablet by mouth in the morning. [facility] gabapentin 400 mg capsule 2021-08 0 00:00: 00 Yes [id number] 9100 400mg Take 1 capsule by mouth in the morning and 1 capsule at noon and 1 capsule in the evening. [facility] tiZANidine 4 mg tablet 2021-08 0 00:00: 00 Yes [id number] 9100 4mg Take 1 tablet by mouth 3 (three) times daily as needed (muscle spasm). [facility] meloxicam 15 mg tablet 2021-08 0 00:00: 00 Yes [id number] 15mg Take 1 tablet by mouth in the morning. [facility] gabapentin 400 mg capsule 2021-08 0- 00:00: 00 Yes [id number] 9100 400mg Take 1 capsule by mouth in the morning and 1 capsule at noon and 1 capsule in the evening. [facility] tiZANidine 4 mg tablet 2021-08 0- 00:00: 00 Yes [id number] 9100 4mg Take 1 tablet by mouth 3 (three) times daily as needed (muscle spasm). [facility] meloxicam 15 mg tablet 2021-08 0- 00:00: 00 Yes [id number] 15mg Take 1 tablet by mouth in the morning. [facility] gabapentin 400 mg capsule 2021-08 0 00:00: 00 Yes [id number] 9100 400mg Take 1 capsule by mouth in the morning and 1 capsule at noon and 1 capsule in the evening. [facility] tiZANidine 4 mg tablet 2021-08 0 00:00: 00 Yes [id number] 9100 4mg Take 1 tablet by mouth 3 (three) times daily as needed (muscle spasm). [facility] meloxicam 15 mg tablet 2021-08 0 00:00: 00 Yes [id number] 15mg Take 1 tablet by mouth in the morning. [facility] gabapentin 400 mg capsule 2021-08 0 00:00: 00 Yes [id number] 9100 400mg Take 1 capsule by mouth in the morning and 1 capsule at noon and 1 capsule in the evening. [facility] tiZANidine 4 mg tablet 2021-08 0 00:00: 00 Yes [id number] 9100 4mg Take 1 tablet by mouth 3 (three) times daily as needed (muscle spasm). [facility] meloxicam 15 mg tablet 2021-08 0 00:00: 00 Yes [id number] 15mg Take 1 tablet by mouth in the morning. [facility] gabapentin 400 mg capsule 2021-08 0- 00:00: 00 Yes [id number] 9100 400mg Take 1 capsule by mouth in the morning and 1 capsule at noon and 1 capsule in the evening. [facility] tiZANidine 4 mg tablet 2021-08 0- 00:00: 00 Yes [id number] 9100 4mg Take 1 tablet by mouth 3 (three) times daily as needed (muscle spasm). [facility] meloxicam 15 mg tablet 2022-1 0-04 00:00: 00 Yes [id number] 15mg Take 1 tablet by mouth in the morning. [facility] gabapentin 400 mg capsule 2021-08 0-04 00:00: 00 10-24 00:00 :00 No [id number] 9100 400mg Take 1 capsule by mouth in the morning and 1 capsule at noon and 1 capsule in the evening. [facility] gabapentin 400 mg capsule 2021-08 0-04 00:00: 00 10-24 00:00 :00 No [id number] 9100 400mg Take 1 capsule by mouth in the morning and 1 capsule at noon and 1 capsule in the evening. [facility] tiZANidine 4 mg tablet 2021-08 0-04 00:00: 00 10-01 00:00 :00 No [id number] 9100 4mg Take 1 tablet by mouth 3 (three) times daily as needed (muscle spasm). [facility] meloxicam 15 mg tablet 2021-08 0-04 00:00: 00 09-15 00:00 :00 No [id number] 15mg Take 1 tablet by mouth in the morning. [facility] meloxicam 15 mg tablet 2021-08 0-04 00:00: 00 09-15 00:00 :00 No [id number] 15mg Take 1 tablet by mouth in the morning. [facility] meloxicam 15 mg tablet 2021-08 0-04 00:00: 00 09-15 00:00 :00 No [id number] 15mg Take 1 tablet by mouth in the morning. [facility] meloxicam 15 mg tablet 2021-08 0-04 00:00: 00 09-15 00:00 :00 No [id number] 15mg Take 1 tablet by mouth in the morning. [facility] metformin ER 500 mg 24 hr tablet 04-21 00:00: 00 Yes [id number] TAKE 2 TABLETS BY MOUTH ONCE DAILY IN THE MORNING AND 3 ONCE DAILY IN THE EVENING. [facility] dulaglutide (TRULICITY) 0.75 mg/0.5 mL PnIj 04-21 00:00: 00 Yes [id number] .75mg inject 1 Pen under the skin weekly. [facility] metformin ER 500 mg 24 hr tablet 04-21 00:00: 00 Yes [id number] TAKE 2 TABLETS BY MOUTH ONCE DAILY IN THE MORNING AND 3 ONCE DAILY IN THE EVENING. [facility] dulaglutide (TRULICITY) 0.75 mg/0.5 mL PnIj 04-21 00:00: 00 Yes [id number] .75mg inject 1 Pen under the skin weekly. [facility] metformin ER 500 mg 24 hr tablet 04-21 00:00: 00 Yes [id number] TAKE 2 TABLETS BY MOUTH ONCE DAILY IN THE MORNING AND 3 ONCE DAILY IN THE EVENING. [facility] dulaglutide (TRULICITY) 0.75 mg/0.5 mL PnIj 04-21 00:00: 00 Yes [id number] .75mg inject 1 Pen under the skin weekly. [facility] metformin ER 500 mg 24 hr tablet 04-21 00:00: 00 Yes [id number] TAKE 2 TABLETS BY MOUTH ONCE DAILY IN THE MORNING AND 3 ONCE DAILY IN THE EVENING. [facility] dulaglutide (TRULICITY) 0.75 mg/0.5 mL PnIj 04-21 00:00: 00 Yes [id number] .75mg inject 1 Pen under the skin weekly. [facility] metformin ER 500 mg 24 hr tablet 04-21 00:00: 00 Yes [id number] TAKE 2 TABLETS BY MOUTH ONCE DAILY IN THE MORNING AND 3 ONCE DAILY IN THE EVENING. [facility] hydrOXYzine 25 mg tablet 04-21 00:00: 00 Yes [id number] 25mg Take 1 tablet by mouth every 8 (eight) hours as needed for Itching. [facility] dulaglutide (TRULICITY) 0.75 mg/0.5 mL PnIj 04-21 00:00: 00 Yes [id number] .75mg inject 1 Pen under the skin weekly. [facility] metformin ER 500 mg 24 hr tablet 04-21 00:00: 00 Yes [id number] TAKE 2 TABLETS BY MOUTH ONCE DAILY IN THE MORNING AND 3 ONCE DAILY IN THE EVENING. [facility] hydrOXYzine 25 mg tablet 04-21 00:00: 00 Yes [id number] 25mg Take 1 tablet by mouth every 8 (eight) hours as needed for Itching. [facility] dulaglutide (TRULICITY) 0.75 mg/0.5 mL PnIj 04-21 00:00: 00 Yes [id number] .75mg inject 1 Pen under the skin weekly. [facility] metformin ER 500 mg 24 hr tablet 04-21 00:00: 00 Yes [id number] TAKE 2 TABLETS BY MOUTH ONCE DAILY IN THE MORNING AND 3 ONCE DAILY IN THE EVENING. [facility] hydrOXYzine 25 mg tablet 04-21 00:00: 00 Yes [id number] 25mg Take 1 tablet by mouth every 8 (eight) hours as needed for Itching. [facility] dulaglutide (TRULICITY) 0.75 mg/0.5 mL PnIj 04-21 00:00: 00 Yes [id number] .75mg inject 1 Pen under the skin weekly. [facility] metformin ER 500 mg 24 hr tablet 04-21 00:00: 00 Yes [id number] TAKE 2 TABLETS BY MOUTH ONCE DAILY IN THE MORNING AND 3 ONCE DAILY IN THE EVENING. [facility] hydrOXYzine 25 mg tablet 04-21 00:00: 00 Yes [id number] 25mg Take 1 tablet by mouth every 8 (eight) hours as needed for Itching. [facility] dulaglutide (TRULICITY) 0.75 mg/0.5 mL PnIj 04-21 00:00: 00 Yes [id number] .75mg inject 1 Pen under the skin weekly. [facility] metformin ER 500 mg 24 hr tablet 04-21 00:00: 00 Yes [id number] TAKE 2 TABLETS BY MOUTH ONCE DAILY IN THE MORNING AND 3 ONCE DAILY IN THE EVENING. [facility] hydrOXYzine 25 mg tablet 04-21 00:00: 00 Yes [id number] 25mg Take 1 tablet by mouth every 8 (eight) hours as needed for Itching. [facility] dulaglutide (TRULICITY) 0.75 mg/0.5 mL PnIj 2021-0 04-21 00:00: 00 Yes [id number] .75mg inject 1 Pen under the skin weekly. [facility] metformin ER 500 mg 24 hr tablet 2021-04-21 00:00: 00 Yes [id number] TAKE 2 TABLETS BY MOUTH ONCE DAILY IN THE MORNING AND 3 ONCE DAILY IN THE EVENING. [facility] hydrOXYzine 25 mg tablet 2021-04-21 00:00: 00 Yes [id number] 25mg Take 1 tablet by mouth every 8 (eight) hours as needed for Itching. [facility] dulaglutide (TRULICITY) 0.75 mg/0.5 mL PnIj 2021-0 04-21 00:00: 00 Yes [id number] .75mg inject 1 Pen under the skin weekly. [facility] metformin ER 500 mg 24 hr tablet 04-21 00:00: 00 Yes [id number] TAKE 2 TABLETS BY MOUTH ONCE DAILY IN THE MORNING AND 3 ONCE DAILY IN THE EVENING. [facility] hydrOXYzine 25 mg tablet 2021-0 04-21 00:00: 00 Yes [id number] 25mg Take 1 tablet by mouth every 8 (eight) hours as needed for Itching. [facility] dulaglutide (TRULICITY) 0.75 mg/0.5 mL PnIj 2021-0 04-21 00:00: 00 Yes [id number] .75mg inject 1 Pen under the skin weekly. [facility] metformin ER 500 mg 24 hr tablet 2021-0 04-21 00:00: 00 Yes [id number] TAKE 2 TABLETS BY MOUTH ONCE DAILY IN THE MORNING AND 3 ONCE DAILY IN THE EVENING. [facility] hydrOXYzine 25 mg tablet 2021-0 04-21 00:00: 00 Yes [id number] 25mg Take 1 tablet by mouth every 8 (eight) hours as needed for Itching. [facility] dulaglutide (TRULICITY) 0.75 mg/0.5 mL PnIj 04-21 00:00: 00 Yes [id number] .75mg inject 1 Pen under the skin weekly. [facility] metformin ER 500 mg 24 hr tablet 04-21 00:00: 00 Yes [id number] TAKE 2 TABLETS BY MOUTH ONCE DAILY IN THE MORNING AND 3 ONCE DAILY IN THE EVENING. [facility] hydrOXYzine 25 mg tablet 04-21 00:00: 00 Yes [id number] 25mg Take 1 tablet by mouth every 8 (eight) hours as needed for Itching. [facility] dulaglutide (TRULICITY) 0.75 mg/0.5 mL PnIj 04-21 00:00: 00 Yes [id number] .75mg inject 1 Pen under the skin weekly. [facility] metformin ER 500 mg 24 hr tablet 04-21 00:00: 00 Yes [id number] TAKE 2 TABLETS BY MOUTH ONCE DAILY IN THE MORNING AND 3 ONCE DAILY IN THE EVENING. [facility] hydrOXYzine 25 mg tablet 04-21 00:00: 00 Yes [id number] 25mg Take 1 tablet by mouth every 8 (eight) hours as needed for Itching. [facility] dulaglutide (TRULICITY) 0.75 mg/0.5 mL PnIj 04-21 00:00: 00 Yes [id number] .75mg inject 1 Pen under the skin weekly. [facility] metformin ER 500 mg 24 hr tablet 04-21 00:00: 00 Yes [id number] TAKE 2 TABLETS BY MOUTH ONCE DAILY IN THE MORNING AND 3 ONCE DAILY IN THE EVENING. [facility] hydrOXYzine 25 mg tablet 04-21 00:00: 00 Yes [id number] 25mg Take 1 tablet by mouth every 8 (eight) hours as needed for Itching. [facility] dulaglutide (TRULICITY) 0.75 mg/0.5 mL PnIj 04-21 00:00: 00 Yes [id number] .75mg inject 1 Pen under the skin weekly. [facility] metformin ER 500 mg 24 hr tablet 04-21 00:00: 00 Yes [id number] TAKE 2 TABLETS BY MOUTH ONCE DAILY IN THE MORNING AND 3 ONCE DAILY IN THE EVENING. [facility] hydrOXYzine 25 mg tablet 04-21 00:00: 00 Yes [id number] 25mg Take 1 tablet by mouth every 8 (eight) hours as needed for Itching. [facility] dulaglutide (TRULICITY) 0.75 mg/0.5 mL PnIj 04-21 00:00: 00 Yes [id number] .75mg inject 1 Pen under the skin weekly. [facility] metformin ER 500 mg 24 hr tablet 04-21 00:00: 00 Yes [id number] TAKE 2 TABLETS BY MOUTH ONCE DAILY IN THE MORNING AND 3 ONCE DAILY IN THE EVENING. [facility] hydrOXYzine 25 mg tablet 04-21 00:00: 00 Yes [id number] 25mg Take 1 tablet by mouth every 8 (eight) hours as needed for Itching. [facility] dulaglutide (TRULICITY) 0.75 mg/0.5 mL PnIj 04-21 00:00: 00 Yes [id number] .75mg inject 1 Pen under the skin weekly. [facility] metformin ER 500 mg 24 hr tablet 04-21 00:00: 00 Yes [id number] TAKE 2 TABLETS BY MOUTH ONCE DAILY IN THE MORNING AND 3 ONCE DAILY IN THE EVENING. [facility] hydrOXYzine 25 mg tablet 04-21 00:00: 00 Yes [id number] 25mg Take 1 tablet by mouth every 8 (eight) hours as needed for Itching. [facility] dulaglutide (TRULICITY) 0.75 mg/0.5 mL PnIj 04-21 00:00: 00 Yes [id number] .75mg inject 1 Pen under the skin weekly. [facility] metformin ER 500 mg 24 hr tablet 04-21 00:00: 00 Yes [id number] TAKE 2 TABLETS BY MOUTH ONCE DAILY IN THE MORNING AND 3 ONCE DAILY IN THE EVENING. [facility] hydrOXYzine 25 mg tablet 04-21 00:00: 00 Yes [id number] 25mg Take 1 tablet by mouth every 8 (eight) hours as needed for Itching. [facility] dulaglutide (TRULICITY) 0.75 mg/0.5 mL PnIj 0 04-21 00:00: 00 Yes [id number] .75mg inject 1 Pen under the skin weekly. [facility] metformin ER 500 mg 24 hr tablet 2021-04-21 00:00: 00 Yes [id number] TAKE 2 TABLETS BY MOUTH ONCE DAILY IN THE MORNING AND 3 ONCE DAILY IN THE EVENING. [facility] hydrOXYzine 25 mg tablet 04-21 00:00: 00 Yes [id number] 25mg Take 1 tablet by mouth every 8 (eight) hours as needed for Itching. [facility] dulaglutide (TRULICITY) 0.75 mg/0.5 mL PnIj 04-21 00:00: 00 Yes [id number] .75mg inject 1 Pen under the skin weekly. [facility] metformin ER 500 mg 24 hr tablet 04-21 00:00: 00 Yes [id number] TAKE 2 TABLETS BY MOUTH ONCE DAILY IN THE MORNING AND 3 ONCE DAILY IN THE EVENING. [facility] hydrOXYzine 25 mg tablet 04-21 00:00: 00 Yes [id number] 25mg Take 1 tablet by mouth every 8 (eight) hours as needed for Itching. [facility] dulaglutide (TRULICITY) 0.75 mg/0.5 mL PnIj 0 04-21 00:00: 00 Yes [id number] .75mg inject 1 Pen under the skin weekly. [facility] metformin ER 500 mg 24 hr tablet 2021-0 04-21 00:00: 00 Yes [id number] TAKE 2 TABLETS BY MOUTH ONCE DAILY IN THE MORNING AND 3 ONCE DAILY IN THE EVENING. [facility] dulaglutide (TRULICITY) 0.75 mg/0.5 mL PnIj 2021-0 04-21 00:00: 00 Yes [id number] .75mg inject 1 Pen under the skin weekly. [facility] metformin ER 500 mg 24 hr tablet 04-21 00:00: 00 Yes [id number] TAKE 2 TABLETS BY MOUTH ONCE DAILY IN THE MORNING AND 3 ONCE DAILY IN THE EVENING. [facility] dulaglutide (TRULICITY) 0.75 mg/0.5 mL PnIj 2021-0 04-21 00:00: 00 Yes [id number] .75mg inject 1 Pen under the skin weekly. [facility] metformin ER 500 mg 24 hr tablet 04-21 00:00: 00 Yes [id number] TAKE 2 TABLETS BY MOUTH ONCE DAILY IN THE MORNING AND 3 ONCE DAILY IN THE EVENING. [facility] dulaglutide (TRULICITY) 0.75 mg/0.5 mL PnIj 2021-0 04-21 00:00: 00 Yes [id number] .75mg inject 1 Pen under the skin weekly. [facility] metformin ER 500 mg 24 hr tablet 04-21 00:00: 00 Yes [id number] TAKE 2 TABLETS BY MOUTH ONCE DAILY IN THE MORNING AND 3 ONCE DAILY IN THE EVENING. [facility] dulaglutide (TRULICITY) 0.75 mg/0.5 mL PnIj 2021-0 04-21 00:00: 00 Yes [id number] .75mg inject 1 Pen under the skin weekly. [facility] metformin ER 500 mg 24 hr tablet 04-21 00:00: 00 Yes [id number] TAKE 2 TABLETS BY MOUTH ONCE DAILY IN THE MORNING AND 3 ONCE DAILY IN THE EVENING. [facility] dulaglutide (TRULICITY) 0.75 mg/0.5 mL PnIj 2021-0 04-21 00:00: 00 Yes [id number] .75mg inject 1 Pen under the skin weekly. [facility] metformin ER 500 mg 24 hr tablet 2021-0 04-21 00:00: 00 Yes [id number] TAKE 2 TABLETS BY MOUTH ONCE DAILY IN THE MORNING AND 3 ONCE DAILY IN THE EVENING. [facility] dulaglutide (TRULICITY) 0.75 mg/0.5 mL PnIj 2-0 04-21 00:00: 00 Yes [id number] .75mg inject 1 Pen under the skin weekly. [facility] metformin ER 500 mg 24 hr tablet 2021-04-21 00:00: 00 Yes [id number] TAKE 2 TABLETS BY MOUTH ONCE DAILY IN THE MORNING AND 3 ONCE DAILY IN THE EVENING. [facility] dulaglutide (TRULICITY) 0.75 mg/0.5 mL PnIj 04-21 00:00: 00 Yes [id number] .75mg inject 1 Pen under the skin weekly. [facility] metformin ER 500 mg 24 hr tablet 04-21 00:00: 00 Yes [id number] TAKE 2 TABLETS BY MOUTH ONCE DAILY IN THE MORNING AND 3 ONCE DAILY IN THE EVENING. [facility] dulaglutide (TRULICITY) 0.75 mg/0.5 mL PnIj 04-21 00:00: 00 Yes [id number] .75mg inject 1 Pen under the skin weekly. [facility] metformin ER 500 mg 24 hr tablet 04-21 00:00: 00 Yes [id number] TAKE 2 TABLETS BY MOUTH ONCE DAILY IN THE MORNING AND 3 ONCE DAILY IN THE EVENING. [facility] dulaglutide (TRULICITY) 0.75 mg/0.5 mL PnIj 04-21 00:00: 00 Yes [id number] .75mg inject 1 Pen under the skin weekly. [facility] metformin ER 500 mg 24 hr tablet 04-21 00:00: 00 Yes [id number] TAKE 2 TABLETS BY MOUTH ONCE DAILY IN THE MORNING AND 3 ONCE DAILY IN THE EVENING. [facility] dulaglutide (TRULICITY) 0.75 mg/0.5 mL PnIj 04-21 00:00: 00 Yes [id number] .75mg inject 1 Pen under the skin weekly. [facility] metformin ER 500 mg 24 hr tablet 04-21 00:00: 00 Yes [id number] TAKE 2 TABLETS BY MOUTH ONCE DAILY IN THE MORNING AND 3 ONCE DAILY IN THE EVENING. [facility] dulaglutide (TRULICITY) 0.75 mg/0.5 mL PnIj 0 04-21 00:00: 00 Yes [id number] .75mg inject 1 Pen under the skin weekly. [facility] metformin ER 500 mg 24 hr tablet 2021-0 04-21 00:00: 00 Yes [id number] TAKE 2 TABLETS BY MOUTH ONCE DAILY IN THE MORNING AND 3 ONCE DAILY IN THE EVENING. [facility] dulaglutide (TRULICITY) 0.75 mg/0.5 mL PnIj 0 04-21 00:00: 00 Yes [id number] .75mg inject 1 Pen under the skin weekly. [facility] metformin ER 500 mg 24 hr tablet 04-21 00:00: 00 Yes [id number] TAKE 2 TABLETS BY MOUTH ONCE DAILY IN THE MORNING AND 3 ONCE DAILY IN THE EVENING. [facility] dulaglutide (TRULICITY) 0.75 mg/0.5 mL PnIj 04-21 00:00: 00 Yes [id number] .75mg inject 1 Pen under the skin weekly. [facility] metformin ER 500 mg 24 hr tablet 04-21 00:00: 00 Yes [id number] TAKE 2 TABLETS BY MOUTH ONCE DAILY IN THE MORNING AND 3 ONCE DAILY IN THE EVENING. [facility] dulaglutide (TRULICITY) 0.75 mg/0.5 mL PnIj 0 04-21 00:00: 00 Yes [id number] .75mg inject 1 Pen under the skin weekly. [facility] metformin ER 500 mg 24 hr tablet 04-21 00:00: 00 Yes [id number] TAKE 2 TABLETS BY MOUTH ONCE DAILY IN THE MORNING AND 3 ONCE DAILY IN THE EVENING. [facility] dulaglutide (TRULICITY) 0.75 mg/0.5 mL PnIj 0 04-21 00:00: 00 Yes [id number] .75mg inject 1 Pen under the skin weekly. [facility] metformin ER 500 mg 24 hr tablet 04-21 00:00: 00 Yes [id number] TAKE 2 TABLETS BY MOUTH ONCE DAILY IN THE MORNING AND 3 ONCE DAILY IN THE EVENING. [facility] dulaglutide (TRULICITY) 0.75 mg/0.5 mL PnIj 2021-0 04-21 00:00: 00 Yes [id number] .75mg inject 1 Pen under the skin weekly. [facility] metformin ER 500 mg 24 hr tablet 2021-0 04-21 00:00: 00 Yes [id number] TAKE 2 TABLETS BY MOUTH ONCE DAILY IN THE MORNING AND 3 ONCE DAILY IN THE EVENING. [facility] dulaglutide (TRULICITY) 0.75 mg/0.5 mL PnIj 2021-0 04-21 00:00: 00 Yes [id number] .75mg inject 1 Pen under the skin weekly. [facility] metformin ER 500 mg 24 hr tablet 04-21 00:00: 00 Yes [id number] TAKE 2 TABLETS BY MOUTH ONCE DAILY IN THE MORNING AND 3 ONCE DAILY IN THE EVENING. [facility] dulaglutide (TRULICITY) 0.75 mg/0.5 mL PnIj 2021-0 04-21 00:00: 00 Yes [id number] .75mg inject 1 Pen under the skin weekly. [facility] metformin ER 500 mg 24 hr tablet 04-21 00:00: 00 Yes [id number] TAKE 2 TABLETS BY MOUTH ONCE DAILY IN THE MORNING AND 3 ONCE DAILY IN THE EVENING. [facility] dulaglutide (TRULICITY) 0.75 mg/0.5 mL PnIj 2021-0 04-21 00:00: 00 Yes [id number] .75mg inject 1 Pen under the skin weekly. [facility] metformin ER 500 mg 24 hr tablet 2021-04-21 00:00: 00 Yes [id number] TAKE 2 TABLETS BY MOUTH ONCE DAILY IN THE MORNING AND 3 ONCE DAILY IN THE EVENING. [facility] dulaglutide (TRULICITY) 0.75 mg/0.5 mL PnIj 2021-0 04-21 00:00: 00 Yes [id number] .75mg inject 1 Pen under the skin weekly. [facility] metformin ER 500 mg 24 hr tablet 04-21 00:00: 00 Yes [id number] TAKE 2 TABLETS BY MOUTH ONCE DAILY IN THE MORNING AND 3 ONCE DAILY IN THE EVENING. [facility] dulaglutide (TRULICITY) 0.75 mg/0.5 mL PnIj 2021-0 04-21 00:00: 00 Yes [id number] .75mg inject 1 Pen under the skin weekly. [facility] metformin ER 500 mg 24 hr tablet 04-21 00:00: 00 Yes [id number] TAKE 2 TABLETS BY MOUTH ONCE DAILY IN THE MORNING AND 3 ONCE DAILY IN THE EVENING. [facility] dulaglutide (TRULICITY) 0.75 mg/0.5 mL PnIj 0 04-21 00:00: 00 Yes [id number] .75mg inject 1 Pen under the skin weekly. [facility] metformin ER 500 mg 24 hr tablet 04-21 00:00: 00 Yes [id number] TAKE 2 TABLETS BY MOUTH ONCE DAILY IN THE MORNING AND 3 ONCE DAILY IN THE EVENING. [facility] dulaglutide (TRULICITY) 0.75 mg/0.5 mL PnIj 2021-0 04-21 00:00: 00 Yes [id number] .75mg inject 1 Pen under the skin weekly. [facility] metformin ER 500 mg 24 hr tablet 04-21 00:00: 00 Yes [id number] TAKE 2 TABLETS BY MOUTH ONCE DAILY IN THE MORNING AND 3 ONCE DAILY IN THE EVENING. [facility] dulaglutide (TRULICITY) 0.75 mg/0.5 mL PnIj 0 04-21 00:00: 00 Yes [id number] .75mg inject 1 Pen under the skin weekly. [facility] metformin ER 500 mg 24 hr tablet 04-21 00:00: 00 Yes [id number] TAKE 2 TABLETS BY MOUTH ONCE DAILY IN THE MORNING AND 3 ONCE DAILY IN THE EVENING. [facility] dulaglutide (TRULICITY) 0.75 mg/0.5 mL PnIj 2021-0 04-21 00:00: 00 Yes [id number] .75mg inject 1 Pen under the skin weekly. [facility] metformin ER 500 mg 24 hr tablet 2021-04-21 00:00: 00 Yes [id number] TAKE 2 TABLETS BY MOUTH ONCE DAILY IN THE MORNING AND 3 ONCE DAILY IN THE EVENING. [facility] dulaglutide (TRULICITY) 0.75 mg/0.5 mL PnIj 04-21 00:00: 00 Yes [id number] .75mg inject 1 Pen under the skin weekly. [facility] metformin ER 500 mg 24 hr tablet 04-21 00:00: 00 Yes [id number] TAKE 2 TABLETS BY MOUTH ONCE DAILY IN THE MORNING AND 3 ONCE DAILY IN THE EVENING. [facility] dulaglutide (TRULICITY) 0.75 mg/0.5 mL PnIj 04-21 00:00: 00 Yes [id number] .75mg inject 1 Pen under the skin weekly. [facility] metformin ER 500 mg 24 hr tablet 04-21 00:00: 00 Yes [id number] TAKE 2 TABLETS BY MOUTH ONCE DAILY IN THE MORNING AND 3 ONCE DAILY IN THE EVENING. [facility] dulaglutide (TRULICITY) 0.75 mg/0.5 mL PnIj 04-21 00:00: 00 Yes [id number] .75mg inject 1 Pen under the skin weekly. [facility] metformin ER 500 mg 24 hr tablet 04-21 00:00: 00 Yes [id number] TAKE 2 TABLETS BY MOUTH ONCE DAILY IN THE MORNING AND 3 ONCE DAILY IN THE EVENING. [facility] dulaglutide (TRULICITY) 0.75 mg/0.5 mL PnIj 04-21 00:00: 00 Yes [id number] .75mg inject 1 Pen under the skin weekly. [facility] metformin ER 500 mg 24 hr tablet 04-21 00:00: 00 Yes [id number] TAKE 2 TABLETS BY MOUTH ONCE DAILY IN THE MORNING AND 3 ONCE DAILY IN THE EVENING. [facility] dulaglutide (TRULICITY) 0.75 mg/0.5 mL PnIj 04-21 00:00: 00 Yes [id number] .75mg inject 1 Pen under the skin weekly. [facility] metformin ER 500 mg 24 hr tablet 2021-04-21 00:00: 00 Yes [id number] TAKE 2 TABLETS BY MOUTH ONCE DAILY IN THE MORNING AND 3 ONCE DAILY IN THE EVENING. [facility] dulaglutide (TRULICITY) 0.75 mg/0.5 mL PnIj 2-0 04-21 00:00: 00 Yes [id number] .75mg inject 1 Pen under the skin weekly. [facility] metformin ER 500 mg 24 hr tablet 2021-04-21 00:00: 00 Yes [id number] TAKE 2 TABLETS BY MOUTH ONCE DAILY IN THE MORNING AND 3 ONCE DAILY IN THE EVENING. [facility] dulaglutide (TRULICITY) 0.75 mg/0.5 mL PnIj 2021-0 04-21 00:00: 00 Yes [id number] .75mg inject 1 Pen under the skin weekly. [facility] metformin ER 500 mg 24 hr tablet 2021-0 04-21 00:00: 00 Yes [id number] TAKE 2 TABLETS BY MOUTH ONCE DAILY IN THE MORNING AND 3 ONCE DAILY IN THE EVENING. [facility] dulaglutide (TRULICITY) 0.75 mg/0.5 mL PnIj 2021-0 04-21 00:00: 00 Yes [id number] .75mg inject 1 Pen under the skin weekly. [facility] metformin ER 500 mg 24 hr tablet 2021-0 04-21 00:00: 00 Yes [id number] TAKE 2 TABLETS BY MOUTH ONCE DAILY IN THE MORNING AND 3 ONCE DAILY IN THE EVENING. [facility] dulaglutide (TRULICITY) 0.75 mg/0.5 mL PnIj 2021-0 04-21 00:00: 00 Yes [id number] .75mg inject 1 Pen under the skin weekly. [facility] metformin ER 500 mg 24 hr tablet 0 04-21 00:00: 00 Yes [id number] TAKE 2 TABLETS BY MOUTH ONCE DAILY IN THE MORNING AND 3 ONCE DAILY IN THE EVENING. [facility] dulaglutide (TRULICITY) 0.75 mg/0.5 mL PnIj 2021-0 04-21 00:00: 00 Yes [id number] .75mg inject 1 Pen under the skin weekly. [facility] metformin ER 500 mg 24 hr tablet 2021-0 04-21 00:00: 00 20209-13 00:00 :00 No [id number] TAKE 2 TABLETS BY MOUTH ONCE DAILY IN THE MORNING AND 3 ONCE DAILY IN THE EVENING. [facility] dulaglutide (TRULICITY) 0.75 mg/0.5 mL PnIj 04-21 00:00: 09-13 00:00 :00 No [id number] .75mg inject 1 Pen under the skin weekly. [facility] metformin ER 500 mg 24 hr tablet 04-21 00:00: 09-13 00:00 :00 No [id number] TAKE 2 TABLETS BY MOUTH ONCE DAILY IN THE MORNING AND 3 ONCE DAILY IN THE EVENING. [facility] dulaglutide (TRULICITY) 0.75 mg/0.5 mL PnIj 04-21 00:00: 00 09-13 00:00 :00 No [id number] .75mg inject 1 Pen under the skin weekly. [facility] metformin ER 500 mg 24 hr tablet 04-21 00:00: 09-13 00:00 :00 No [id number] TAKE 2 TABLETS BY MOUTH ONCE DAILY IN THE MORNING AND 3 ONCE DAILY IN THE EVENING. [facility] dulaglutide (TRULICITY) 0.75 mg/0.5 mL PnIj 04-21 00:00: 00 09-13 00:00 :00 No [id number] .75mg inject 1 Pen under the skin weekly. [facility] hydrOXYzine 25 mg tablet 04-21 00:00: 00 06-28 00:00 :00 No [id number] 25mg Take 1 tablet by mouth every 8 (eight) hours as needed for Itching. [facility] insulin NPH (NOVOLIN N NPH U-100 INSULIN) 100 unit/mL injection 04-18 00:00: 00 Yes [id number] INJECT 20 UNITS SUBCUTANEO USLY ONCE DAILY WITH BREAKFAST [facility] insulin regular human (NOVOLIN R REGULAR U-100 INSULN) 100 unit/mL injection 04-18 00:00: 00 Yes [id number] INJECT 15 UNITS SUBCUTANEO USLY THREE TIMES DAILY BEFORE MEAL(S) [facility] insulin NPH (NOVOLIN N NPH U-100 INSULIN) 100 unit/mL injection 04-18 00:00: 00 Yes [id number] INJECT 20 UNITS SUBCUTANEO USLY ONCE DAILY WITH BREAKFAST [facility] insulin regular human (NOVOLIN R REGULAR U-100 INSULN) 100 unit/mL injection 04-18 00:00: 00 Yes [id number] INJECT 15 UNITS SUBCUTANEO USLY THREE TIMES DAILY BEFORE MEAL(S) [facility] insulin NPH (NOVOLIN N NPH U-100 INSULIN) 100 unit/mL injection 04-18 00:00: 00 Yes [id number] INJECT 20 UNITS SUBCUTANEO USLY ONCE DAILY WITH BREAKFAST [facility] insulin regular human (NOVOLIN R REGULAR U-100 INSULN) 100 unit/mL injection 04-18 00:00: 00 Yes [id number] INJECT 15 UNITS SUBCUTANEO USLY THREE TIMES DAILY BEFORE MEAL(S) [facility] insulin NPH (NOVOLIN N NPH U-100 INSULIN) 100 unit/mL injection 04-18 00:00: 00 Yes [id number] INJECT 20 UNITS SUBCUTANEO USLY ONCE DAILY WITH BREAKFAST [facility] insulin regular human (NOVOLIN R REGULAR U-100 INSULN) 100 unit/mL injection 04-18 00:00: 00 Yes [id number] INJECT 15 UNITS SUBCUTANEO USLY THREE TIMES DAILY BEFORE MEAL(S) [facility] ondansetron 4 mg disintegrat ing tablet 04-18 00:00: 00 Yes [id number] DISSOLVE 1 TABLET IN MOUTH EVERY 8 HOURS NEEDED FOR NAUSEA AND VOMITING FOR UP TO 4 DAYS [facility] insulin NPH (NOVOLIN N NPH U-100 INSULIN) 100 unit/mL injection 04-18 00:00: 00 Yes [id number] INJECT 20 UNITS SUBCUTANEO USLY ONCE DAILY WITH BREAKFAST [facility] insulin regular human (NOVOLIN R REGULAR U-100 INSULN) 100 unit/mL injection 04-18 00:00: 00 Yes [id number] INJECT 15 UNITS SUBCUTANEO USLY THREE TIMES DAILY BEFORE MEAL(S) [facility] gabapentin 400 mg capsule 04-18 00:00: 00 Yes [id number] 9100 400mg Take 1 capsule by mouth in the morning and 1 capsule at noon and 1 capsule in the evening. [facility] ondansetron 4 mg disintegrat ing tablet 04-18 00:00: 00 Yes [id number] DISSOLVE 1 TABLET IN MOUTH EVERY 8 HOURS NEEDED FOR NAUSEA AND VOMITING FOR UP TO 4 DAYS [facility] insulin NPH (NOVOLIN N NPH U-100 INSULIN) 100 unit/mL injection 04-18 00:00: 00 Yes [id number] INJECT 20 UNITS SUBCUTANEO USLY ONCE DAILY WITH BREAKFAST [facility] insulin regular human (NOVOLIN R REGULAR U-100 INSULN) 100 unit/mL injection 04-18 00:00: 00 Yes [id number] INJECT 15 UNITS SUBCUTANEO USLY THREE TIMES DAILY BEFORE MEAL(S) [facility] gabapentin 400 mg capsule 04-18 00:00: 00 Yes [id number] 9100 400mg Take 1 capsule by mouth in the morning and 1 capsule at noon and 1 capsule in the evening. [facility] ondansetron 4 mg disintegrat ing tablet 04-18 00:00: 00 Yes [id number] DISSOLVE 1 TABLET IN MOUTH EVERY 8 HOURS NEEDED FOR NAUSEA AND VOMITING FOR UP TO 4 DAYS [facility] insulin NPH (NOVOLIN N NPH U-100 INSULIN) 100 unit/mL injection 04-18 00:00: 00 Yes [id number] INJECT 20 UNITS SUBCUTANEO USLY ONCE DAILY WITH BREAKFAST [facility] insulin regular human (NOVOLIN R REGULAR U-100 INSULN) 100 unit/mL injection 04-18 00:00: 00 Yes [id number] INJECT 15 UNITS SUBCUTANEO USLY THREE TIMES DAILY BEFORE MEAL(S) [facility] gabapentin 400 mg capsule 04-18 00:00: 00 Yes [id number] 9100 400mg Take 1 capsule by mouth in the morning and 1 capsule at noon and 1 capsule in the evening. [facility] ondansetron 4 mg disintegrat ing tablet 04-18 00:00: 00 Yes [id number] DISSOLVE 1 TABLET IN MOUTH EVERY 8 HOURS NEEDED FOR NAUSEA AND VOMITING FOR UP TO 4 DAYS [facility] insulin NPH (NOVOLIN N NPH U-100 INSULIN) 100 unit/mL injection 04-18 00:00: 00 Yes [id number] INJECT 20 UNITS SUBCUTANEO USLY ONCE DAILY WITH BREAKFAST [facility] insulin regular human (NOVOLIN R REGULAR U-100 INSULN) 100 unit/mL injection 04-18 00:00: 00 Yes [id number] INJECT 15 UNITS SUBCUTANEO USLY THREE TIMES DAILY BEFORE MEAL(S) [facility] gabapentin 400 mg capsule 04-18 00:00: 00 Yes [id number] 9100 400mg Take 1 capsule by mouth in the morning and 1 capsule at noon and 1 capsule in the evening. [facility] ondansetron 4 mg disintegrat ing tablet 04-18 00:00: 00 Yes [id number] DISSOLVE 1 TABLET IN MOUTH EVERY 8 HOURS NEEDED FOR NAUSEA AND VOMITING FOR UP TO 4 DAYS [facility] insulin NPH (NOVOLIN N NPH U-100 INSULIN) 100 unit/mL injection 04-18 00:00: 00 Yes [id number] INJECT 20 UNITS SUBCUTANEO USLY ONCE DAILY WITH BREAKFAST [facility] insulin regular human (NOVOLIN R REGULAR U-100 INSULN) 100 unit/mL injection 04-18 00:00: 00 Yes [id number] INJECT 15 UNITS SUBCUTANEO USLY THREE TIMES DAILY BEFORE MEAL(S) [facility] gabapentin 400 mg capsule 04-18 00:00: 00 Yes [id number] 9100 400mg Take 1 capsule by mouth in the morning and 1 capsule at noon and 1 capsule in the evening. [facility] ondansetron 4 mg disintegrat ing tablet 04-18 00:00: 00 Yes [id number] DISSOLVE 1 TABLET IN MOUTH EVERY 8 HOURS NEEDED FOR NAUSEA AND VOMITING FOR UP TO 4 DAYS [facility] insulin NPH (NOVOLIN N NPH U-100 INSULIN) 100 unit/mL injection 04-18 00:00: 00 Yes [id number] INJECT 20 UNITS SUBCUTANEO USLY ONCE DAILY WITH BREAKFAST [facility] insulin regular human (NOVOLIN R REGULAR U-100 INSULN) 100 unit/mL injection 04-18 00:00: 00 Yes [id number] INJECT 15 UNITS SUBCUTANEO USLY THREE TIMES DAILY BEFORE MEAL(S) [facility] ondansetron 4 mg disintegrat ing tablet 04-18 00:00: 00 Yes [id number] DISSOLVE 1 TABLET IN MOUTH EVERY 8 HOURS NEEDED FOR NAUSEA AND VOMITING FOR UP TO 4 DAYS [facility] insulin NPH (NOVOLIN N NPH U-100 INSULIN) 100 unit/mL injection 04-18 00:00: 00 Yes [id number] INJECT 20 UNITS SUBCUTANEO USLY ONCE DAILY WITH BREAKFAST [facility] insulin regular human (NOVOLIN R REGULAR U-100 INSULN) 100 unit/mL injection 04-18 00:00: 00 Yes [id number] INJECT 15 UNITS SUBCUTANEO USLY THREE TIMES DAILY BEFORE MEAL(S) [facility] ondansetron 4 mg disintegrat ing tablet 04-18 00:00: 00 Yes [id number] DISSOLVE 1 TABLET IN MOUTH EVERY 8 HOURS NEEDED FOR NAUSEA AND VOMITING FOR UP TO 4 DAYS [facility] insulin NPH (NOVOLIN N NPH U-100 INSULIN) 100 unit/mL injection 04-18 00:00: 00 Yes [id number] INJECT 20 UNITS SUBCUTANEO USLY ONCE DAILY WITH BREAKFAST [facility] insulin regular human (NOVOLIN R REGULAR U-100 INSULN) 100 unit/mL injection 04-18 00:00: 00 Yes [id number] INJECT 15 UNITS SUBCUTANEO USLY THREE TIMES DAILY BEFORE MEAL(S) [facility] ondansetron 4 mg disintegrat ing tablet 04-18 00:00: 00 Yes [id number] DISSOLVE 1 TABLET IN MOUTH EVERY 8 HOURS NEEDED FOR NAUSEA AND VOMITING FOR UP TO 4 DAYS [facility] insulin NPH (NOVOLIN N NPH U-100 INSULIN) 100 unit/mL injection 04-18 00:00: 00 Yes [id number] INJECT 20 UNITS SUBCUTANEO USLY ONCE DAILY WITH BREAKFAST [facility] insulin regular human (NOVOLIN R REGULAR U-100 INSULN) 100 unit/mL injection 04-18 00:00: 00 Yes [id number] INJECT 15 UNITS SUBCUTANEO USLY THREE TIMES DAILY BEFORE MEAL(S) [facility] ondansetron 4 mg disintegrat ing tablet 04-18 00:00: 00 Yes [id number] DISSOLVE 1 TABLET IN MOUTH EVERY 8 HOURS NEEDED FOR NAUSEA AND VOMITING FOR UP TO 4 DAYS [facility] insulin NPH (NOVOLIN N NPH U-100 INSULIN) 100 unit/mL injection 04-18 00:00: 00 Yes [id number] INJECT 20 UNITS SUBCUTANEO USLY ONCE DAILY WITH BREAKFAST [facility] insulin regular human (NOVOLIN R REGULAR U-100 INSULN) 100 unit/mL injection 04-18 00:00: 00 Yes [id number] INJECT 15 UNITS SUBCUTANEO USLY THREE TIMES DAILY BEFORE MEAL(S) [facility] ondansetron 4 mg disintegrat ing tablet 04-18 00:00: 00 Yes [id number] DISSOLVE 1 TABLET IN MOUTH EVERY 8 HOURS NEEDED FOR NAUSEA AND VOMITING FOR UP TO 4 DAYS [facility] insulin NPH (NOVOLIN N NPH U-100 INSULIN) 100 unit/mL injection 04-18 00:00: 00 Yes [id number] INJECT 20 UNITS SUBCUTANEO USLY ONCE DAILY WITH BREAKFAST [facility] insulin regular human (NOVOLIN R REGULAR U-100 INSULN) 100 unit/mL injection 04-18 00:00: 00 Yes [id number] INJECT 15 UNITS SUBCUTANEO USLY THREE TIMES DAILY BEFORE MEAL(S) [facility] ondansetron 4 mg disintegrat ing tablet 04-18 00:00: 00 Yes [id number] DISSOLVE 1 TABLET IN MOUTH EVERY 8 HOURS NEEDED FOR NAUSEA AND VOMITING FOR UP TO 4 DAYS [facility] insulin NPH (NOVOLIN N NPH U-100 INSULIN) 100 unit/mL injection 04-18 00:00: 00 Yes [id number] INJECT 20 UNITS SUBCUTANEO USLY ONCE DAILY WITH BREAKFAST [facility] insulin regular human (NOVOLIN R REGULAR U-100 INSULN) 100 unit/mL injection 04-18 00:00: 00 Yes [id number] INJECT 15 UNITS SUBCUTANEO USLY THREE TIMES DAILY BEFORE MEAL(S) [facility] ondansetron 4 mg disintegrat ing tablet 04-18 00:00: 00 Yes [id number] DISSOLVE 1 TABLET IN MOUTH EVERY 8 HOURS NEEDED FOR NAUSEA AND VOMITING FOR UP TO 4 DAYS [facility] insulin NPH (NOVOLIN N NPH U-100 INSULIN) 100 unit/mL injection 04-18 00:00: 00 Yes [id number] INJECT 20 UNITS SUBCUTANEO USLY ONCE DAILY WITH BREAKFAST [facility] insulin regular human (NOVOLIN R REGULAR U-100 INSULN) 100 unit/mL injection 04-18 00:00: 00 Yes [id number] INJECT 15 UNITS SUBCUTANEO USLY THREE TIMES DAILY BEFORE MEAL(S) [facility] ondansetron 4 mg disintegrat ing tablet 04-18 00:00: 00 Yes [id number] DISSOLVE 1 TABLET IN MOUTH EVERY 8 HOURS NEEDED FOR NAUSEA AND VOMITING FOR UP TO 4 DAYS [facility] insulin NPH (NOVOLIN N NPH U-100 INSULIN) 100 unit/mL injection 04-18 00:00: 00 Yes [id number] INJECT 20 UNITS SUBCUTANEO USLY ONCE DAILY WITH BREAKFAST [facility] insulin regular human (NOVOLIN R REGULAR U-100 INSULN) 100 unit/mL injection 04-18 00:00: 00 Yes [id number] INJECT 15 UNITS SUBCUTANEO USLY THREE TIMES DAILY BEFORE MEAL(S) [facility] ondansetron 4 mg disintegrat ing tablet 04-18 00:00: 00 Yes [id number] DISSOLVE 1 TABLET IN MOUTH EVERY 8 HOURS NEEDED FOR NAUSEA AND VOMITING FOR UP TO 4 DAYS [facility] insulin NPH (NOVOLIN N NPH U-100 INSULIN) 100 unit/mL injection 04-18 00:00: 00 Yes [id number] INJECT 20 UNITS SUBCUTANEO USLY ONCE DAILY WITH BREAKFAST [facility] insulin regular human (NOVOLIN R REGULAR U-100 INSULN) 100 unit/mL injection 04-18 00:00: 00 Yes [id number] INJECT 15 UNITS SUBCUTANEO USLY THREE TIMES DAILY BEFORE MEAL(S) [facility] ondansetron 4 mg disintegrat ing tablet 04-18 00:00: 00 Yes [id number] DISSOLVE 1 TABLET IN MOUTH EVERY 8 HOURS NEEDED FOR NAUSEA AND VOMITING FOR UP TO 4 DAYS [facility] insulin NPH (NOVOLIN N NPH U-100 INSULIN) 100 unit/mL injection 04-18 00:00: 00 Yes [id number] INJECT 20 UNITS SUBCUTANEO USLY ONCE DAILY WITH BREAKFAST [facility] insulin regular human (NOVOLIN R REGULAR U-100 INSULN) 100 unit/mL injection 04-18 00:00: 00 Yes [id number] INJECT 15 UNITS SUBCUTANEO USLY THREE TIMES DAILY BEFORE MEAL(S) [facility] ondansetron 4 mg disintegrat ing tablet 04-18 00:00: 00 Yes [id number] DISSOLVE 1 TABLET IN MOUTH EVERY 8 HOURS NEEDED FOR NAUSEA AND VOMITING FOR UP TO 4 DAYS [facility] insulin NPH (NOVOLIN N NPH U-100 INSULIN) 100 unit/mL injection 04-18 00:00: 00 Yes [id number] INJECT 20 UNITS SUBCUTANEO USLY ONCE DAILY WITH BREAKFAST [facility] insulin regular human (NOVOLIN R REGULAR U-100 INSULN) 100 unit/mL injection 04-18 00:00: 00 Yes [id number] INJECT 15 UNITS SUBCUTANEO USLY THREE TIMES DAILY BEFORE MEAL(S) [facility] ondansetron 4 mg disintegrat ing tablet 04-18 00:00: 00 Yes [id number] DISSOLVE 1 TABLET IN MOUTH EVERY 8 HOURS NEEDED FOR NAUSEA AND VOMITING FOR UP TO 4 DAYS [facility] insulin NPH (NOVOLIN N NPH U-100 INSULIN) 100 unit/mL injection 04-18 00:00: 00 Yes [id number] INJECT 20 UNITS SUBCUTANEO USLY ONCE DAILY WITH BREAKFAST [facility] insulin regular human (NOVOLIN R REGULAR U-100 INSULN) 100 unit/mL injection 04-18 00:00: 00 Yes [id number] INJECT 15 UNITS SUBCUTANEO USLY THREE TIMES DAILY BEFORE MEAL(S) [facility] ondansetron 4 mg disintegrat ing tablet 04-18 00:00: 00 Yes [id number] DISSOLVE 1 TABLET IN MOUTH EVERY 8 HOURS NEEDED FOR NAUSEA AND VOMITING FOR UP TO 4 DAYS [facility] insulin NPH (NOVOLIN N NPH U-100 INSULIN) 100 unit/mL injection 04-18 00:00: 00 Yes [id number] INJECT 20 UNITS SUBCUTANEO USLY ONCE DAILY WITH BREAKFAST [facility] insulin regular human (NOVOLIN R REGULAR U-100 INSULN) 100 unit/mL injection 04-18 00:00: 00 Yes [id number] INJECT 15 UNITS SUBCUTANEO USLY THREE TIMES DAILY BEFORE MEAL(S) [facility] ondansetron 4 mg disintegrat ing tablet 04-18 00:00: 00 Yes [id number] DISSOLVE 1 TABLET IN MOUTH EVERY 8 HOURS NEEDED FOR NAUSEA AND VOMITING FOR UP TO 4 DAYS [facility] insulin NPH (NOVOLIN N NPH U-100 INSULIN) 100 unit/mL injection 04-18 00:00: 00 Yes [id number] INJECT 20 UNITS SUBCUTANEO USLY ONCE DAILY WITH BREAKFAST [facility] insulin regular human (NOVOLIN R REGULAR U-100 INSULN) 100 unit/mL injection 04-18 00:00: 00 Yes [id number] INJECT 15 UNITS SUBCUTANEO USLY THREE TIMES DAILY BEFORE MEAL(S) [facility] ondansetron 4 mg disintegrat ing tablet 04-18 00:00: 00 Yes [id number] DISSOLVE 1 TABLET IN MOUTH EVERY 8 HOURS NEEDED FOR NAUSEA AND VOMITING FOR UP TO 4 DAYS [facility] insulin NPH (NOVOLIN N NPH U-100 INSULIN) 100 unit/mL injection 04-18 00:00: 00 Yes [id number] INJECT 20 UNITS SUBCUTANEO USLY ONCE DAILY WITH BREAKFAST [facility] insulin regular human (NOVOLIN R REGULAR U-100 INSULN) 100 unit/mL injection 04-18 00:00: 00 Yes [id number] INJECT 15 UNITS SUBCUTANEO USLY THREE TIMES DAILY BEFORE MEAL(S) [facility] ondansetron 4 mg disintegrat ing tablet 04-18 00:00: 00 Yes [id number] DISSOLVE 1 TABLET IN MOUTH EVERY 8 HOURS NEEDED FOR NAUSEA AND VOMITING FOR UP TO 4 DAYS [facility] insulin NPH (NOVOLIN N NPH U-100 INSULIN) 100 unit/mL injection 04-18 00:00: 00 Yes [id number] INJECT 20 UNITS SUBCUTANEO USLY ONCE DAILY WITH BREAKFAST [facility] insulin regular human (NOVOLIN R REGULAR U-100 INSULN) 100 unit/mL injection 04-18 00:00: 00 Yes [id number] INJECT 15 UNITS SUBCUTANEO USLY THREE TIMES DAILY BEFORE MEAL(S) [facility] ondansetron 4 mg disintegrat ing tablet 04-18 00:00: 00 Yes [id number] DISSOLVE 1 TABLET IN MOUTH EVERY 8 HOURS NEEDED FOR NAUSEA AND VOMITING FOR UP TO 4 DAYS [facility] insulin NPH (NOVOLIN N NPH U-100 INSULIN) 100 unit/mL injection 04-18 00:00: 00 Yes [id number] INJECT 20 UNITS SUBCUTANEO USLY ONCE DAILY WITH BREAKFAST [facility] insulin regular human (NOVOLIN R REGULAR U-100 INSULN) 100 unit/mL injection 04-18 00:00: 00 Yes [id number] INJECT 15 UNITS SUBCUTANEO USLY THREE TIMES DAILY BEFORE MEAL(S) [facility] ondansetron 4 mg disintegrat ing tablet 04-18 00:00: 00 Yes [id number] DISSOLVE 1 TABLET IN MOUTH EVERY 8 HOURS NEEDED FOR NAUSEA AND VOMITING FOR UP TO 4 DAYS [facility] insulin NPH (NOVOLIN N NPH U-100 INSULIN) 100 unit/mL injection 04-18 00:00: 00 Yes [id number] INJECT 20 UNITS SUBCUTANEO USLY ONCE DAILY WITH BREAKFAST [facility] insulin regular human (NOVOLIN R REGULAR U-100 INSULN) 100 unit/mL injection 04-18 00:00: 00 Yes [id number] INJECT 15 UNITS SUBCUTANEO USLY THREE TIMES DAILY BEFORE MEAL(S) [facility] ondansetron 4 mg disintegrat ing tablet 04-18 00:00: 00 Yes [id number] DISSOLVE 1 TABLET IN MOUTH EVERY 8 HOURS NEEDED FOR NAUSEA AND VOMITING FOR UP TO 4 DAYS [facility] insulin NPH (NOVOLIN N NPH U-100 INSULIN) 100 unit/mL injection 04-18 00:00: 00 Yes [id number] INJECT 20 UNITS SUBCUTANEO USLY ONCE DAILY WITH BREAKFAST [facility] insulin regular human (NOVOLIN R REGULAR U-100 INSULN) 100 unit/mL injection 04-18 00:00: 00 Yes [id number] INJECT 15 UNITS SUBCUTANEO USLY THREE TIMES DAILY BEFORE MEAL(S) [facility] insulin NPH (NOVOLIN N NPH U-100 INSULIN) 100 unit/mL injection 04-18 00:00: 00 Yes [id number] INJECT 20 UNITS SUBCUTANEO USLY ONCE DAILY WITH BREAKFAST [facility] insulin regular human (NOVOLIN R REGULAR U-100 INSULN) 100 unit/mL injection 04-18 00:00: 00 Yes [id number] INJECT 15 UNITS SUBCUTANEO USLY THREE TIMES DAILY BEFORE MEAL(S) [facility] insulin NPH (NOVOLIN N NPH U-100 INSULIN) 100 unit/mL injection 04-18 00:00: 00 Yes [id number] INJECT 20 UNITS SUBCUTANEO USLY ONCE DAILY WITH BREAKFAST [facility] insulin regular human (NOVOLIN R REGULAR U-100 INSULN) 100 unit/mL injection 04-18 00:00: 00 Yes [id number] INJECT 15 UNITS SUBCUTANEO USLY THREE TIMES DAILY BEFORE MEAL(S) [facility] insulin NPH (NOVOLIN N NPH U-100 INSULIN) 100 unit/mL injection 04-18 00:00: 00 Yes [id number] INJECT 20 UNITS SUBCUTANEO USLY ONCE DAILY WITH BREAKFAST [facility] insulin regular human (NOVOLIN R REGULAR U-100 INSULN) 100 unit/mL injection 04-18 00:00: 00 Yes [id number] INJECT 15 UNITS SUBCUTANEO USLY THREE TIMES DAILY BEFORE MEAL(S) [facility] insulin NPH (NOVOLIN N NPH U-100 INSULIN) 100 unit/mL injection 04-18 00:00: 00 Yes [id number] INJECT 20 UNITS SUBCUTANEO USLY ONCE DAILY WITH BREAKFAST [facility] insulin regular human (NOVOLIN R REGULAR U-100 INSULN) 100 unit/mL injection 04-18 00:00: 00 Yes [id number] INJECT 15 UNITS SUBCUTANEO USLY THREE TIMES DAILY BEFORE MEAL(S) [facility] insulin NPH (NOVOLIN N NPH U-100 INSULIN) 100 unit/mL injection 04-18 00:00: 00 Yes [id number] INJECT 20 UNITS SUBCUTANEO USLY ONCE DAILY WITH BREAKFAST [facility] insulin regular human (NOVOLIN R REGULAR U-100 INSULN) 100 unit/mL injection 04-18 00:00: 00 Yes [id number] INJECT 15 UNITS SUBCUTANEO USLY THREE TIMES DAILY BEFORE MEAL(S) [facility] insulin NPH (NOVOLIN N NPH U-100 INSULIN) 100 unit/mL injection 04-18 00:00: 00 Yes [id number] INJECT 20 UNITS SUBCUTANEO USLY ONCE DAILY WITH BREAKFAST [facility] insulin regular human (NOVOLIN R REGULAR U-100 INSULN) 100 unit/mL injection 04-18 00:00: 00 Yes [id number] INJECT 15 UNITS SUBCUTANEO USLY THREE TIMES DAILY BEFORE MEAL(S) [facility] insulin NPH (NOVOLIN N NPH U-100 INSULIN) 100 unit/mL injection 04-18 00:00: 00 Yes [id number] INJECT 20 UNITS SUBCUTANEO USLY ONCE DAILY WITH BREAKFAST [facility] insulin regular human (NOVOLIN R REGULAR U-100 INSULN) 100 unit/mL injection 04-18 00:00: 00 Yes [id number] INJECT 15 UNITS SUBCUTANEO USLY THREE TIMES DAILY BEFORE MEAL(S) [facility] insulin NPH (NOVOLIN N NPH U-100 INSULIN) 100 unit/mL injection 04-18 00:00: 00 Yes [id number] INJECT 20 UNITS SUBCUTANEO USLY ONCE DAILY WITH BREAKFAST [facility] insulin regular human (NOVOLIN R REGULAR U-100 INSULN) 100 unit/mL injection 04-18 00:00: 00 Yes [id number] INJECT 15 UNITS SUBCUTANEO USLY THREE TIMES DAILY BEFORE MEAL(S) [facility] insulin NPH (NOVOLIN N NPH U-100 INSULIN) 100 unit/mL injection 04-18 00:00: 00 Yes [id number] INJECT 20 UNITS SUBCUTANEO USLY ONCE DAILY WITH BREAKFAST [facility] insulin regular human (NOVOLIN R REGULAR U-100 INSULN) 100 unit/mL injection 04-18 00:00: 00 Yes [id number] INJECT 15 UNITS SUBCUTANEO USLY THREE TIMES DAILY BEFORE MEAL(S) [facility] insulin NPH (NOVOLIN N NPH U-100 INSULIN) 100 unit/mL injection 04-18 00:00: 00 Yes [id number] INJECT 20 UNITS SUBCUTANEO USLY ONCE DAILY WITH BREAKFAST [facility] insulin regular human (NOVOLIN R REGULAR U-100 INSULN) 100 unit/mL injection 04-18 00:00: 00 Yes [id number] INJECT 15 UNITS SUBCUTANEO USLY THREE TIMES DAILY BEFORE MEAL(S) [facility] insulin NPH (NOVOLIN N NPH U-100 INSULIN) 100 unit/mL injection 04-18 00:00: 00 Yes [id number] INJECT 20 UNITS SUBCUTANEO USLY ONCE DAILY WITH BREAKFAST [facility] insulin regular human (NOVOLIN R REGULAR U-100 INSULN) 100 unit/mL injection 04-18 00:00: 00 Yes [id number] INJECT 15 UNITS SUBCUTANEO USLY THREE TIMES DAILY BEFORE MEAL(S) [facility] insulin NPH (NOVOLIN N NPH U-100 INSULIN) 100 unit/mL injection 04-18 00:00: 00 Yes [id number] INJECT 20 UNITS SUBCUTANEO USLY ONCE DAILY WITH BREAKFAST [facility] insulin regular human (NOVOLIN R REGULAR U-100 INSULN) 100 unit/mL injection 04-18 00:00: 00 Yes [id number] INJECT 15 UNITS SUBCUTANEO USLY THREE TIMES DAILY BEFORE MEAL(S) [facility] insulin NPH (NOVOLIN N NPH U-100 INSULIN) 100 unit/mL injection 04-18 00:00: 00 Yes [id number] INJECT 20 UNITS SUBCUTANEO USLY ONCE DAILY WITH BREAKFAST [facility] insulin regular human (NOVOLIN R REGULAR U-100 INSULN) 100 unit/mL injection 04-18 00:00: 00 Yes [id number] INJECT 15 UNITS SUBCUTANEO USLY THREE TIMES DAILY BEFORE MEAL(S) [facility] insulin NPH (NOVOLIN N NPH U-100 INSULIN) 100 unit/mL injection 04-18 00:00: 00 Yes [id number] INJECT 20 UNITS SUBCUTANEO USLY ONCE DAILY WITH BREAKFAST [facility] insulin regular human (NOVOLIN R REGULAR U-100 INSULN) 100 unit/mL injection 04-18 00:00: 00 Yes [id number] INJECT 15 UNITS SUBCUTANEO USLY THREE TIMES DAILY BEFORE MEAL(S) [facility] insulin NPH (NOVOLIN N NPH U-100 INSULIN) 100 unit/mL injection 04-18 00:00: 00 Yes [id number] INJECT 20 UNITS SUBCUTANEO USLY ONCE DAILY WITH BREAKFAST [facility] insulin regular human (NOVOLIN R REGULAR U-100 INSULN) 100 unit/mL injection 04-18 00:00: 00 Yes [id number] INJECT 15 UNITS SUBCUTANEO USLY THREE TIMES DAILY BEFORE MEAL(S) [facility] insulin NPH (NOVOLIN N NPH U-100 INSULIN) 100 unit/mL injection 04-18 00:00: 00 Yes [id number] INJECT 20 UNITS SUBCUTANEO USLY ONCE DAILY WITH BREAKFAST [facility] insulin regular human (NOVOLIN R REGULAR U-100 INSULN) 100 unit/mL injection 04-18 00:00: 00 Yes [id number] INJECT 15 UNITS SUBCUTANEO USLY THREE TIMES DAILY BEFORE MEAL(S) [facility] insulin NPH (NOVOLIN N NPH U-100 INSULIN) 100 unit/mL injection 04-18 00:00: 00 Yes [id number] INJECT 20 UNITS SUBCUTANEO USLY ONCE DAILY WITH BREAKFAST [facility] insulin regular human (NOVOLIN R REGULAR U-100 INSULN) 100 unit/mL injection 04-18 00:00: 00 Yes [id number] INJECT 15 UNITS SUBCUTANEO USLY THREE TIMES DAILY BEFORE MEAL(S) [facility] insulin NPH (NOVOLIN N NPH U-100 INSULIN) 100 unit/mL injection 04-18 00:00: 00 Yes [id number] INJECT 20 UNITS SUBCUTANEO USLY ONCE DAILY WITH BREAKFAST [facility] insulin regular human (NOVOLIN R REGULAR U-100 INSULN) 100 unit/mL injection 04-18 00:00: 00 Yes [id number] INJECT 15 UNITS SUBCUTANEO USLY THREE TIMES DAILY BEFORE MEAL(S) [facility] insulin NPH (NOVOLIN N NPH U-100 INSULIN) 100 unit/mL injection 04-18 00:00: 00 Yes [id number] INJECT 20 UNITS SUBCUTANEO USLY ONCE DAILY WITH BREAKFAST [facility] insulin regular human (NOVOLIN R REGULAR U-100 INSULN) 100 unit/mL injection 04-18 00:00: 00 Yes [id number] INJECT 15 UNITS SUBCUTANEO USLY THREE TIMES DAILY BEFORE MEAL(S) [facility] insulin NPH (NOVOLIN N NPH U-100 INSULIN) 100 unit/mL injection 04-18 00:00: 00 Yes [id number] INJECT 20 UNITS SUBCUTANEO USLY ONCE DAILY WITH BREAKFAST [facility] insulin regular human (NOVOLIN R REGULAR U-100 INSULN) 100 unit/mL injection 04-18 00:00: 00 Yes [id number] INJECT 15 UNITS SUBCUTANEO USLY THREE TIMES DAILY BEFORE MEAL(S) [facility] insulin NPH (NOVOLIN N NPH U-100 INSULIN) 100 unit/mL injection 04-18 00:00: 00 Yes [id number] INJECT 20 UNITS SUBCUTANEO USLY ONCE DAILY WITH BREAKFAST [facility] insulin regular human (NOVOLIN R REGULAR U-100 INSULN) 100 unit/mL injection 04-18 00:00: 00 Yes [id number] INJECT 15 UNITS SUBCUTANEO USLY THREE TIMES DAILY BEFORE MEAL(S) [facility] insulin NPH (NOVOLIN N NPH U-100 INSULIN) 100 unit/mL injection 04-18 00:00: 00 Yes [id number] INJECT 20 UNITS SUBCUTANEO USLY ONCE DAILY WITH BREAKFAST [facility] insulin regular human (NOVOLIN R REGULAR U-100 INSULN) 100 unit/mL injection 04-18 00:00: 00 Yes [id number] INJECT 15 UNITS SUBCUTANEO USLY THREE TIMES DAILY BEFORE MEAL(S) [facility] insulin NPH (NOVOLIN N NPH U-100 INSULIN) 100 unit/mL injection 04-18 00:00: 00 Yes [id number] INJECT 20 UNITS SUBCUTANEO USLY ONCE DAILY WITH BREAKFAST [facility] insulin regular human (NOVOLIN R REGULAR U-100 INSULN) 100 unit/mL injection 04-18 00:00: 00 Yes [id number] INJECT 15 UNITS SUBCUTANEO USLY THREE TIMES DAILY BEFORE MEAL(S) [facility] insulin NPH (NOVOLIN N NPH U-100 INSULIN) 100 unit/mL injection 04-18 00:00: 00 Yes [id number] INJECT 20 UNITS SUBCUTANEO USLY ONCE DAILY WITH BREAKFAST [facility] insulin regular human (NOVOLIN R REGULAR U-100 INSULN) 100 unit/mL injection 04-18 00:00: 00 Yes [id number] INJECT 15 UNITS SUBCUTANEO USLY THREE TIMES DAILY BEFORE MEAL(S) [facility] insulin NPH (NOVOLIN N NPH U-100 INSULIN) 100 unit/mL injection 04-18 00:00: 00 Yes [id number] INJECT 20 UNITS SUBCUTANEO USLY ONCE DAILY WITH BREAKFAST [facility] insulin regular human (NOVOLIN R REGULAR U-100 INSULN) 100 unit/mL injection 04-18 00:00: 00 Yes [id number] INJECT 15 UNITS SUBCUTANEO USLY THREE TIMES DAILY BEFORE MEAL(S) [facility] insulin NPH (NOVOLIN N NPH U-100 INSULIN) 100 unit/mL injection 04-18 00:00: 00 Yes [id number] INJECT 20 UNITS SUBCUTANEO USLY ONCE DAILY WITH BREAKFAST [facility] insulin regular human (NOVOLIN R REGULAR U-100 INSULN) 100 unit/mL injection 04-18 00:00: 00 Yes [id number] INJECT 15 UNITS SUBCUTANEO USLY THREE TIMES DAILY BEFORE MEAL(S) [facility] insulin NPH (NOVOLIN N NPH U-100 INSULIN) 100 unit/mL injection 04-18 00:00: 00 Yes [id number] INJECT 20 UNITS SUBCUTANEO USLY ONCE DAILY WITH BREAKFAST [facility] insulin regular human (NOVOLIN R REGULAR U-100 INSULN) 100 unit/mL injection 04-18 00:00: 00 Yes [id number] INJECT 15 UNITS SUBCUTANEO USLY THREE TIMES DAILY BEFORE MEAL(S) [facility] insulin NPH (NOVOLIN N NPH U-100 INSULIN) 100 unit/mL injection 04-18 00:00: 00 09-13 00:00 :00 No [id number] INJECT 20 UNITS SUBCUTANEO USLY ONCE DAILY WITH BREAKFAST [facility] insulin regular human (NOVOLIN R REGULAR U-100 INSULN) 100 unit/mL injection 04-18 00:00: 00 09-13 00:00 :00 No [id number] INJECT 15 UNITS SUBCUTANEO USLY THREE TIMES DAILY BEFORE MEAL(S) [facility] insulin NPH (NOVOLIN N NPH U-100 INSULIN) 100 unit/mL injection 04-18 00:00: 00 09-13 00:00 :00 No [id number] INJECT 20 UNITS SUBCUTANEO USLY ONCE DAILY WITH BREAKFAST [facility] insulin regular human (NOVOLIN R REGULAR U-100 INSULN) 100 unit/mL injection 04-18 00:00: 00 09-13 00:00 :00 No [id number] INJECT 15 UNITS SUBCUTANEO USLY THREE TIMES DAILY BEFORE MEAL(S) [facility] insulin NPH (NOVOLIN N NPH U-100 INSULIN) 100 unit/mL injection 04-18 00:00: 00 09-13 00:00 :00 No [id number] INJECT 20 UNITS SUBCUTANEO USLY ONCE DAILY WITH BREAKFAST [facility] insulin regular human (NOVOLIN R REGULAR U-100 INSULN) 100 unit/mL injection 04-18 00:00: 00 09-13 00:00 :00 No [id number] INJECT 15 UNITS SUBCUTANEO USLY THREE TIMES DAILY BEFORE MEAL(S) [facility] ondansetron 4 mg disintegrat ing tablet 04-18 00:00: 00 07-17 00:00 :00 No [id number] DISSOLVE 1 TABLET IN MOUTH EVERY 8 HOURS NEEDED FOR NAUSEA AND VOMITING FOR UP TO 4 DAYS [facility] ondansetron 4 mg disintegrat ing tablet 04-18 00:00: 00 07-17 00:00 :00 No [id number] DISSOLVE 1 TABLET IN MOUTH EVERY 8 HOURS NEEDED FOR NAUSEA AND VOMITING FOR UP TO 4 DAYS [facility] ondansetron 4 mg disintegrat ing tablet 04-18 00:00: 00 07-17 00:00 :00 No [id number] DISSOLVE 1 TABLET IN MOUTH EVERY 8 HOURS NEEDED FOR NAUSEA AND VOMITING FOR UP TO 4 DAYS [facility] ondansetron 4 mg disintegrat ing tablet 04-18 00:00: 00 07-17 00:00 :00 No [id number] DISSOLVE 1 TABLET IN MOUTH EVERY 8 HOURS NEEDED FOR NAUSEA AND VOMITING FOR UP TO 4 DAYS [facility] gabapentin 400 mg capsule 04-18 00:00: 00 05-16 00:00 :00 No [id number] 9100 400mg Take 1 capsule by mouth in the morning and 1 capsule at noon and 1 capsule in the evening. [facility] gabapentin 400 mg capsule 2021-0 9 00:00: 00 05-16 00:00 :00 No [id number] 9100 400mg Take 1 capsule by mouth in the morning and 1 capsule at noon and 1 capsule in the evening. [facility] PROMETHAZIN E 12.5 mg tablet 2-0 8-15 00:00: 00 Yes [id number] TAKE 2 TABLETS BY MOUTH EVERY 6 HOURS NEEDED FOR VERTIGO [facility] PROMETHAZIN E 12.5 mg tablet 2-0 8-15 00:00: 00 Yes [id number] TAKE 2 TABLETS BY MOUTH EVERY 6 HOURS NEEDED FOR VERTIGO [facility] PROMETHAZIN E 12.5 mg tablet 2-0 8-15 00:00: 00 Yes [id number] TAKE 2 TABLETS BY MOUTH EVERY 6 HOURS NEEDED FOR VERTIGO [facility] PROMETHAZIN E 12.5 mg tablet 2-0 8-15 00:00: 00 Yes [id number] TAKE 2 TABLETS BY MOUTH EVERY 6 HOURS NEEDED FOR VERTIGO [facility] PROMETHAZIN E 12.5 mg tablet 2-0 8-15 00:00: 00 Yes [id number] TAKE 2 TABLETS BY MOUTH EVERY 6 HOURS NEEDED FOR VERTIGO [facility] PROMETHAZIN E 12.5 mg tablet 2-0 8-15 00:00: 00 Yes [id number] TAKE 2 TABLETS BY MOUTH EVERY 6 HOURS NEEDED FOR VERTIGO [facility] PROMETHAZIN E 12.5 mg tablet 2-0 8-15 00:00: 00 Yes [id number] TAKE 2 TABLETS BY MOUTH EVERY 6 HOURS NEEDED FOR VERTIGO [facility] PROMETHAZIN E 12.5 mg tablet 2-0 8-15 00:00: 00 Yes [id number] TAKE 2 TABLETS BY MOUTH EVERY 6 HOURS NEEDED FOR VERTIGO [facility] PROMETHAZIN E 12.5 mg tablet 2022-0 8-15 00:00: 00 Yes [id number] TAKE 2 TABLETS BY MOUTH EVERY 6 HOURS NEEDED FOR VERTIGO [facility] PROMETHAZIN E 12.5 mg tablet 15 00:00: 00 05-22 00:00 :00 No [id number] TAKE 2 TABLETS BY MOUTH EVERY 6 HOURS NEEDED FOR VERTIGO [facility] PROMETHAZIN E 12.5 mg tablet 15 00:00: 00 05-22 00:00 :00 No [id number] TAKE 2 TABLETS BY MOUTH EVERY 6 HOURS NEEDED FOR VERTIGO [facility] PROMETHAZIN E 12.5 mg tablet 03-27 00:00: 00 05-22 00:00 :00 No [id number] TAKE 2 TABLETS BY MOUTH EVERY 6 HOURS NEEDED FOR VERTIGO [facility] atorvastati n 20 mg tablet 01-16 00:00: 00 Yes [id number] 20mg Take 1 tablet by mouth at bedtime. [facility] escitalopra m oxalate (LEXAPRO) 20 mg tablet 01-16 00:00: 00 Yes [id number] 20mg Take 1 tablet by mouth daily. [facility] glyBURIDE 5 mg tablet 01-16 00:00: 00 Yes [id number] TAKE 1 TABLET BY MOUTH TWICE DAILY WITH MEALS (NEEDS FOLLOW UP VISIT FOR FURTHER REFILLS) [facility] atorvastati n 20 mg tablet 2021-0 01-16 00:00: 00 Yes [id number] 20mg Take 1 tablet by mouth at bedtime. [facility] escitalopra m oxalate (LEXAPRO) 20 mg tablet 01-16 00:00: 00 Yes [id number] 20mg Take 1 tablet by mouth daily. [facility] glyBURIDE 5 mg tablet 01-16 00:00: 00 Yes [id number] TAKE 1 TABLET BY MOUTH TWICE DAILY WITH MEALS (NEEDS FOLLOW UP VISIT FOR FURTHER REFILLS) [facility] atorvastati n 20 mg tablet 2021-01-16 00:00: 00 Yes [id number] 20mg Take 1 tablet by mouth at bedtime. [facility] escitalopra m oxalate (LEXAPRO) 20 mg tablet 0 01-16 00:00: 00 Yes [id number] 20mg Take 1 tablet by mouth daily. [facility] glyBURIDE 5 mg tablet 2021-0 01-16 00:00: 00 Yes [id number] TAKE 1 TABLET BY MOUTH TWICE DAILY WITH MEALS (NEEDS FOLLOW UP VISIT FOR FURTHER REFILLS) [facility] atorvastati n 20 mg tablet 2021-0 01-16 00:00: 00 Yes [id number] 20mg Take 1 tablet by mouth at bedtime. [facility] escitalopra m oxalate (LEXAPRO) 20 mg tablet 2021-0 01-16 00:00: 00 Yes [id number] 20mg Take 1 tablet by mouth daily. [facility] glyBURIDE 5 mg tablet 2021-0 01-16 00:00: 00 Yes [id number] TAKE 1 TABLET BY MOUTH TWICE DAILY WITH MEALS (NEEDS FOLLOW UP VISIT FOR FURTHER REFILLS) [facility] atorvastati n 20 mg tablet 2021-0 01-16 00:00: 00 Yes [id number] 20mg Take 1 tablet by mouth at bedtime. [facility] escitalopra m oxalate (LEXAPRO) 20 mg tablet 0 01-16 00:00: 00 Yes [id number] 20mg Take 1 tablet by mouth daily. [facility] glyBURIDE 5 mg tablet 2021-0 01-16 00:00: 00 Yes [id number] TAKE 1 TABLET BY MOUTH TWICE DAILY WITH MEALS (NEEDS FOLLOW UP VISIT FOR FURTHER REFILLS) [facility] atorvastati n 20 mg tablet 2021-0 01-16 00:00: 00 Yes [id number] 20mg Take 1 tablet by mouth at bedtime. [facility] escitalopra m oxalate (LEXAPRO) 20 mg tablet 2021-0 01-16 00:00: 00 Yes [id number] 20mg Take 1 tablet by mouth daily. [facility] glyBURIDE 5 mg tablet 2021-0 01-16 00:00: 00 Yes [id number] TAKE 1 TABLET BY MOUTH TWICE DAILY WITH MEALS (NEEDS FOLLOW UP VISIT FOR FURTHER REFILLS) [facility] atorvastati n 20 mg tablet 0 01-16 00:00: 00 Yes [id number] 20mg Take 1 tablet by mouth at bedtime. [facility] escitalopra m oxalate (LEXAPRO) 20 mg tablet 01-16 00:00: 00 Yes [id number] 20mg Take 1 tablet by mouth daily. [facility] glyBURIDE 5 mg tablet 01-16 00:00: 00 Yes [id number] TAKE 1 TABLET BY MOUTH TWICE DAILY WITH MEALS (NEEDS FOLLOW UP VISIT FOR FURTHER REFILLS) [facility] atorvastati n 20 mg tablet 01-16 00:00: 00 Yes [id number] 20mg Take 1 tablet by mouth at bedtime. [facility] escitalopra m oxalate (LEXAPRO) 20 mg tablet 01-16 00:00: 00 Yes [id number] 20mg Take 1 tablet by mouth daily. [facility] glyBURIDE 5 mg tablet 01-16 00:00: 00 Yes [id number] TAKE 1 TABLET BY MOUTH TWICE DAILY WITH MEALS (NEEDS FOLLOW UP VISIT FOR FURTHER REFILLS) [facility] atorvastati n 20 mg tablet 01-16 00:00: 00 Yes [id number] 20mg Take 1 tablet by mouth at bedtime. [facility] escitalopra m oxalate (LEXAPRO) 20 mg tablet 01-16 00:00: 00 Yes [id number] 20mg Take 1 tablet by mouth daily. [facility] glyBURIDE 5 mg tablet 0 01-16 00:00: 00 Yes [id number] TAKE 1 TABLET BY MOUTH TWICE DAILY WITH MEALS (NEEDS FOLLOW UP VISIT FOR FURTHER REFILLS) [facility] atorvastati n 20 mg tablet 0 01-16 00:00: 00 Yes [id number] 20mg Take 1 tablet by mouth at bedtime. [facility] escitalopra m oxalate (LEXAPRO) 20 mg tablet 0 01-16 00:00: 00 Yes [id number] 20mg Take 1 tablet by mouth daily. [facility] glyBURIDE 5 mg tablet 2021-0 01-16 00:00: 00 Yes [id number] TAKE 1 TABLET BY MOUTH TWICE DAILY WITH MEALS (NEEDS FOLLOW UP VISIT FOR FURTHER REFILLS) [facility] atorvastati n 20 mg tablet 2021-0 01-16 00:00: 00 Yes [id number] 20mg Take 1 tablet by mouth at bedtime. [facility] escitalopra m oxalate (LEXAPRO) 20 mg tablet 2021-0 01-16 00:00: 00 Yes [id number] 20mg Take 1 tablet by mouth daily. [facility] glyBURIDE 5 mg tablet 2021-0 01-16 00:00: 00 Yes [id number] TAKE 1 TABLET BY MOUTH TWICE DAILY WITH MEALS (NEEDS FOLLOW UP VISIT FOR FURTHER REFILLS) [facility] atorvastati n 20 mg tablet 2021-0 01-16 00:00: 00 Yes [id number] 20mg Take 1 tablet by mouth at bedtime. [facility] escitalopra m oxalate (LEXAPRO) 20 mg tablet 2021-0 01-16 00:00: 00 Yes [id number] 20mg Take 1 tablet by mouth daily. [facility] glyBURIDE 5 mg tablet 2021-0 01-16 00:00: 00 Yes [id number] TAKE 1 TABLET BY MOUTH TWICE DAILY WITH MEALS (NEEDS FOLLOW UP VISIT FOR FURTHER REFILLS) [facility] atorvastati n 20 mg tablet 2021-0 01-16 00:00: 00 Yes [id number] 20mg Take 1 tablet by mouth at bedtime. [facility] escitalopra m oxalate (LEXAPRO) 20 mg tablet 2021-0 01-16 00:00: 00 Yes [id number] 20mg Take 1 tablet by mouth daily. [facility] glyBURIDE 5 mg tablet 2021-0 01-16 00:00: 00 Yes [id number] TAKE 1 TABLET BY MOUTH TWICE DAILY WITH MEALS (NEEDS FOLLOW UP VISIT FOR FURTHER REFILLS) [facility] atorvastati n 20 mg tablet 0 01-16 00:00: 00 Yes [id number] 20mg Take 1 tablet by mouth at bedtime. [facility] escitalopra m oxalate (LEXAPRO) 20 mg tablet 0 01-16 00:00: 00 Yes [id number] 20mg Take 1 tablet by mouth daily. [facility] glyBURIDE 5 mg tablet 2021-0 01-16 00:00: 00 Yes [id number] TAKE 1 TABLET BY MOUTH TWICE DAILY WITH MEALS (NEEDS FOLLOW UP VISIT FOR FURTHER REFILLS) [facility] atorvastati n 20 mg tablet 2021-0 01-16 00:00: 00 Yes [id number] 20mg Take 1 tablet by mouth at bedtime. [facility] escitalopra m oxalate (LEXAPRO) 20 mg tablet 01-16 00:00: 00 Yes [id number] 20mg Take 1 tablet by mouth daily. [facility] glyBURIDE 5 mg tablet 0 01-16 00:00: 00 Yes [id number] TAKE 1 TABLET BY MOUTH TWICE DAILY WITH MEALS (NEEDS FOLLOW UP VISIT FOR FURTHER REFILLS) [facility] atorvastati n 20 mg tablet 0 01-16 00:00: 00 Yes [id number] 20mg Take 1 tablet by mouth at bedtime. [facility] escitalopra m oxalate (LEXAPRO) 20 mg tablet 0 01-16 00:00: 00 Yes [id number] 20mg Take 1 tablet by mouth daily. [facility] glyBURIDE 5 mg tablet 2021-0 01-16 00:00: 00 Yes [id number] TAKE 1 TABLET BY MOUTH TWICE DAILY WITH MEALS (NEEDS FOLLOW UP VISIT FOR FURTHER REFILLS) [facility] atorvastati n 20 mg tablet 2021-0 01-16 00:00: 00 Yes [id number] 20mg Take 1 tablet by mouth at bedtime. [facility] escitalopra m oxalate (LEXAPRO) 20 mg tablet 2021-0 01-16 00:00: 00 Yes [id number] 20mg Take 1 tablet by mouth daily. [facility] glyBURIDE 5 mg tablet 0 01-16 00:00: 00 Yes [id number] TAKE 1 TABLET BY MOUTH TWICE DAILY WITH MEALS (NEEDS FOLLOW UP VISIT FOR FURTHER REFILLS) [facility] atorvastati n 20 mg tablet 0 01-16 00:00: 00 Yes [id number] 20mg Take 1 tablet by mouth at bedtime. [facility] escitalopra m oxalate (LEXAPRO) 20 mg tablet 01-16 00:00: 00 Yes [id number] 20mg Take 1 tablet by mouth daily. [facility] glyBURIDE 5 mg tablet 0 01-16 00:00: 00 Yes [id number] TAKE 1 TABLET BY MOUTH TWICE DAILY WITH MEALS (NEEDS FOLLOW UP VISIT FOR FURTHER REFILLS) [facility] escitalopra m oxalate (LEXAPRO) 20 mg tablet 0 01-16 00:00: 00 Yes [id number] 20mg Take 1 tablet by mouth daily. [facility] glyBURIDE 5 mg tablet 0 01-16 00:00: 00 Yes [id number] TAKE 1 TABLET BY MOUTH TWICE DAILY WITH MEALS (NEEDS FOLLOW UP VISIT FOR FURTHER REFILLS) [facility] escitalopra m oxalate (LEXAPRO) 20 mg tablet 0 01-16 00:00: 00 Yes [id number] 20mg Take 1 tablet by mouth daily. [facility] glyBURIDE 5 mg tablet 2021-0 01-16 00:00: 00 Yes [id number] TAKE 1 TABLET BY MOUTH TWICE DAILY WITH MEALS (NEEDS FOLLOW UP VISIT FOR FURTHER REFILLS) [facility] escitalopra m oxalate (LEXAPRO) 20 mg tablet 0 01-16 00:00: 00 Yes [id number] 20mg Take 1 tablet by mouth daily. [facility] glyBURIDE 5 mg tablet 2021-0 01-16 00:00: 00 Yes [id number] TAKE 1 TABLET BY MOUTH TWICE DAILY WITH MEALS (NEEDS FOLLOW UP VISIT FOR FURTHER REFILLS) [facility] escitalopra m oxalate (LEXAPRO) 20 mg tablet 2021-0 01-16 00:00: 00 Yes [id number] 20mg Take 1 tablet by mouth daily. [facility] glyBURIDE 5 mg tablet 2021-0 01-16 00:00: 00 Yes [id number] TAKE 1 TABLET BY MOUTH TWICE DAILY WITH MEALS (NEEDS FOLLOW UP VISIT FOR FURTHER REFILLS) [facility] escitalopra m oxalate (LEXAPRO) 20 mg tablet 2021-0 01-16 00:00: 00 Yes [id number] 20mg Take 1 tablet by mouth daily. [facility] glyBURIDE 5 mg tablet 2021-0 01-16 00:00: 00 Yes [id number] TAKE 1 TABLET BY MOUTH TWICE DAILY WITH MEALS (NEEDS FOLLOW UP VISIT FOR FURTHER REFILLS) [facility] escitalopra m oxalate (LEXAPRO) 20 mg tablet 2021-0 01-16 00:00: 00 Yes [id number] 20mg Take 1 tablet by mouth daily. [facility] glyBURIDE 5 mg tablet 2021-0 01-16 00:00: 00 Yes [id number] TAKE 1 TABLET BY MOUTH TWICE DAILY WITH MEALS (NEEDS FOLLOW UP VISIT FOR FURTHER REFILLS) [facility] escitalopra m oxalate (LEXAPRO) 20 mg tablet 2021-0 01-16 00:00: 00 Yes [id number] 20mg Take 1 tablet by mouth daily. [facility] glyBURIDE 5 mg tablet 2021-0 01-16 00:00: 00 Yes [id number] TAKE 1 TABLET BY MOUTH TWICE DAILY WITH MEALS (NEEDS FOLLOW UP VISIT FOR FURTHER REFILLS) [facility] glyBURIDE 5 mg tablet 2-0 01-16 00:00: 00 Yes [id number] TAKE 1 TABLET BY MOUTH TWICE DAILY WITH MEALS (NEEDS FOLLOW UP VISIT FOR FURTHER REFILLS) [facility] glyBURIDE 5 mg tablet 2-0 01-16 00:00: 00 Yes [id number] TAKE 1 TABLET BY MOUTH TWICE DAILY WITH MEALS (NEEDS FOLLOW UP VISIT FOR FURTHER REFILLS) [facility] glyBURIDE 5 mg tablet 2021-0 - 00:00: 00 Yes [id number] TAKE 1 TABLET BY MOUTH TWICE DAILY WITH MEALS (NEEDS FOLLOW UP VISIT FOR FURTHER REFILLS) [facility] glyBURIDE 5 mg tablet 2-0 01-16 00:00: 00 Yes [id number] TAKE 1 TABLET BY MOUTH TWICE DAILY WITH MEALS (NEEDS FOLLOW UP VISIT FOR FURTHER REFILLS) [facility] glyBURIDE 5 mg tablet 2-0 01-16 00:00: 00 Yes [id number] TAKE 1 TABLET BY MOUTH TWICE DAILY WITH MEALS (NEEDS FOLLOW UP VISIT FOR FURTHER REFILLS) [facility] glyBURIDE 5 mg tablet 2-0 01-16 00:00: 00 Yes [id number] TAKE 1 TABLET BY MOUTH TWICE DAILY WITH MEALS (NEEDS FOLLOW UP VISIT FOR FURTHER REFILLS) [facility] glyBURIDE 5 mg tablet 2-0 01-16 00:00: 00 Yes [id number] TAKE 1 TABLET BY MOUTH TWICE DAILY WITH MEALS (NEEDS FOLLOW UP VISIT FOR FURTHER REFILLS) [facility] glyBURIDE 5 mg tablet 2-0 01-16 00:00: 00 Yes [id number] TAKE 1 TABLET BY MOUTH TWICE DAILY WITH MEALS (NEEDS FOLLOW UP VISIT FOR FURTHER REFILLS) [facility] glyBURIDE 5 mg tablet 2-0 01-16 00:00: 00 Yes [id number] TAKE 1 TABLET BY MOUTH TWICE DAILY WITH MEALS (NEEDS FOLLOW UP VISIT FOR FURTHER REFILLS) [facility] glyBURIDE 5 mg tablet 2021-0 01-16 00:00: 00 Yes [id number] TAKE 1 TABLET BY MOUTH TWICE DAILY WITH MEALS (NEEDS FOLLOW UP VISIT FOR FURTHER REFILLS) [facility] glyBURIDE 5 mg tablet 2-0 01-16 00:00: 00 Yes [id number] TAKE 1 TABLET BY MOUTH TWICE DAILY WITH MEALS (NEEDS FOLLOW UP VISIT FOR FURTHER REFILLS) [facility] glyBURIDE 5 mg tablet 2-0 01-16 00:00: 00 Yes [id number] TAKE 1 TABLET BY MOUTH TWICE DAILY WITH MEALS (NEEDS FOLLOW UP VISIT FOR FURTHER REFILLS) [facility] glyBURIDE 5 mg tablet 2-0 - 00:00: 00 Yes [id number] TAKE 1 TABLET BY MOUTH TWICE DAILY WITH MEALS (NEEDS FOLLOW UP VISIT FOR FURTHER REFILLS) [facility] atorvastati n 20 mg tablet 0 01-16 00:00: 00 Yes [id number] 20mg Take 1 tablet by mouth at bedtime. [facility] empaglifloz in (JARDIANCE) 25 mg Tab 01-16 00:00: 00 Yes [id number] 25mg Take 1 tablet by mouth every morning. [facility] escitalopra m oxalate (LEXAPRO) 20 mg tablet 2021-0 01-16 00:00: 00 Yes [id number] 20mg Take 1 tablet by mouth daily. [facility] glyBURIDE 5 mg tablet 01-16 00:00: 00 Yes [id number] TAKE 1 TABLET BY MOUTH TWICE DAILY WITH MEALS (NEEDS FOLLOW UP VISIT FOR FURTHER REFILLS) [facility] NUVARING (NUVARING) 0.12-0.015 mg/24 hr vaginal insert 0 01-16 00:00: 00 Yes [id number] 1{each} Insert 1 Each into vagina once every month. Insert vaginally and leave in place for 3 consecutiv e weeks, then remove for 1 week. [facility] atorvastati n 20 mg tablet 0 01-16 00:00: 00 Yes [id number] 20mg Take 1 tablet by mouth at bedtime. [facility] empaglifloz in (JARDIANCE) 25 mg Tab 2021-01-16 00:00: 00 Yes [id number] 25mg Take 1 tablet by mouth every morning. [facility] escitalopra m oxalate (LEXAPRO) 20 mg tablet 01-16 00:00: 00 Yes [id number] 20mg Take 1 tablet by mouth daily. [facility] glyBURIDE 5 mg tablet 2021-0 01-16 00:00: 00 Yes [id number] TAKE 1 TABLET BY MOUTH TWICE DAILY WITH MEALS (NEEDS FOLLOW UP VISIT FOR FURTHER REFILLS) [facility] NUVARING (NUVARING) 0.12-0.015 mg/24 hr vaginal insert 2021-0 01-16 00:00: 00 Yes [id number] 1{each} Insert 1 Each into vagina once every month. Insert vaginally and leave in place for 3 consecutiv e weeks, then remove for 1 week. [facility] atorvastati n 20 mg tablet 2021-0 01-16 00:00: 00 Yes [id number] 20mg Take 1 tablet by mouth at bedtime. [facility] empaglifloz in (JARDIANCE) 25 mg Tab 2021-0 01-16 00:00: 00 Yes [id number] 25mg Take 1 tablet by mouth every morning. [facility] escitalopra m oxalate (LEXAPRO) 20 mg tablet 01-16 00:00: 00 Yes [id number] 20mg Take 1 tablet by mouth daily. [facility] glyBURIDE 5 mg tablet 01-16 00:00: 00 Yes [id number] TAKE 1 TABLET BY MOUTH TWICE DAILY WITH MEALS (NEEDS FOLLOW UP VISIT FOR FURTHER REFILLS) [facility] NUVARING (NUVARING) 0.12-0.015 mg/24 hr vaginal insert 01-16 00:00: 00 Yes [id number] 1{each} Insert 1 Each into vagina once every month. Insert vaginally and leave in place for 3 consecutiv e weeks, then remove for 1 week. [facility] atorvastati n 20 mg tablet 01-16 00:00: 00 Yes [id number] 20mg Take 1 tablet by mouth at bedtime. [facility] empaglifloz in (JARDIANCE) 25 mg Tab 0 01-16 00:00: 00 Yes [id number] 25mg Take 1 tablet by mouth every morning. [facility] escitalopra m oxalate (LEXAPRO) 20 mg tablet 01-16 00:00: 00 Yes [id number] 20mg Take 1 tablet by mouth daily. [facility] glyBURIDE 5 mg tablet 2021-0 01-16 00:00: 00 Yes [id number] TAKE 1 TABLET BY MOUTH TWICE DAILY WITH MEALS (NEEDS FOLLOW UP VISIT FOR FURTHER REFILLS) [facility] NUVARING (NUVARING) 0.12-0.015 mg/24 hr vaginal insert 2021-0 01-16 00:00: 00 Yes [id number] 1{each} Insert 1 Each into vagina once every month. Insert vaginally and leave in place for 3 consecutiv e weeks, then remove for 1 week. [facility] atorvastati n 20 mg tablet 01-16 00:00: 00 Yes [id number] 20mg Take 1 tablet by mouth at bedtime. [facility] empaglifloz in (JARDIANCE) 25 mg Tab 01-16 00:00: 00 Yes [id number] 25mg Take 1 tablet by mouth every morning. [facility] escitalopra m oxalate (LEXAPRO) 20 mg tablet 01-16 00:00: 00 Yes [id number] 20mg Take 1 tablet by mouth daily. [facility] glyBURIDE 5 mg tablet 01-16 00:00: 00 Yes [id number] TAKE 1 TABLET BY MOUTH TWICE DAILY WITH MEALS (NEEDS FOLLOW UP VISIT FOR FURTHER REFILLS) [facility] NUVARING (NUVARING) 0.12-0.015 mg/24 hr vaginal insert 01-16 00:00: 00 Yes [id number] 1{each} Insert 1 Each into vagina once every month. Insert vaginally and leave in place for 3 consecutiv e weeks, then remove for 1 week. [facility] atorvastati n 20 mg tablet 01-16 00:00: 00 Yes [id number] 20mg Take 1 tablet by mouth at bedtime. [facility] empaglifloz in (JARDIANCE) 25 mg Tab 01-16 00:00: 00 Yes [id number] 25mg Take 1 tablet by mouth every morning. [facility] escitalopra m oxalate (LEXAPRO) 20 mg tablet 01-16 00:00: 00 Yes [id number] 20mg Take 1 tablet by mouth daily. [facility] glyBURIDE 5 mg tablet 2021-01-16 00:00: 00 Yes [id number] TAKE 1 TABLET BY MOUTH TWICE DAILY WITH MEALS (NEEDS FOLLOW UP VISIT FOR FURTHER REFILLS) [facility] NUVARING (NUVARING) 0.12-0.015 mg/24 hr vaginal insert 01-16 00:00: 00 Yes [id number] 1{each} Insert 1 Each into vagina once every month. Insert vaginally and leave in place for 3 consecutiv e weeks, then remove for 1 week. [facility] atorvastati n 20 mg tablet 01-16 00:00: 00 Yes [id number] 20mg Take 1 tablet by mouth at bedtime. [facility] empaglifloz in (JARDIANCE) 25 mg Tab 01-16 00:00: 00 Yes [id number] 25mg Take 1 tablet by mouth every morning. [facility] escitalopra m oxalate (LEXAPRO) 20 mg tablet 01-16 00:00: 00 Yes [id number] 20mg Take 1 tablet by mouth daily. [facility] glyBURIDE 5 mg tablet 01-16 00:00: 00 Yes [id number] TAKE 1 TABLET BY MOUTH TWICE DAILY WITH MEALS (NEEDS FOLLOW UP VISIT FOR FURTHER REFILLS) [facility] NUVARING (NUVARING) 0.12-0.015 mg/24 hr vaginal insert 01-16 00:00: 00 Yes [id number] 1{each} Insert 1 Each into vagina once every month. Insert vaginally and leave in place for 3 consecutiv e weeks, then remove for 1 week. [facility] atorvastati n 20 mg tablet 01-16 00:00: 00 Yes [id number] 20mg Take 1 tablet by mouth at bedtime. [facility] empaglifloz in (JARDIANCE) 25 mg Tab 01-16 00:00: 00 Yes [id number] 25mg Take 1 tablet by mouth every morning. [facility] escitalopra m oxalate (LEXAPRO) 20 mg tablet 01-16 00:00: 00 Yes [id number] 20mg Take 1 tablet by mouth daily. [facility] glyBURIDE 5 mg tablet 2021-01-16 00:00: 00 Yes [id number] TAKE 1 TABLET BY MOUTH TWICE DAILY WITH MEALS (NEEDS FOLLOW UP VISIT FOR FURTHER REFILLS) [facility] NUVARING (NUVARING) 0.12-0.015 mg/24 hr vaginal insert 01-16 00:00: 00 Yes [id number] 1{each} Insert 1 Each into vagina once every month. Insert vaginally and leave in place for 3 consecutiv e weeks, then remove for 1 week. [facility] atorvastati n 20 mg tablet 01-16 00:00: 00 Yes [id number] 20mg Take 1 tablet by mouth at bedtime. [facility] empaglifloz in (JARDIANCE) 25 mg Tab 01-16 00:00: 00 Yes [id number] 25mg Take 1 tablet by mouth every morning. [facility] escitalopra m oxalate (LEXAPRO) 20 mg tablet 01-16 00:00: 00 Yes [id number] 20mg Take 1 tablet by mouth daily. [facility] glyBURIDE 5 mg tablet 01-16 00:00: 00 Yes [id number] TAKE 1 TABLET BY MOUTH TWICE DAILY WITH MEALS (NEEDS FOLLOW UP VISIT FOR FURTHER REFILLS) [facility] NUVARING (NUVARING) 0.12-0.015 mg/24 hr vaginal insert 01-16 00:00: 00 Yes [id number] 1{each} Insert 1 Each into vagina once every month. Insert vaginally and leave in place for 3 consecutiv e weeks, then remove for 1 week. [facility] atorvastati n 20 mg tablet 01-16 00:00: 00 Yes [id number] 20mg Take 1 tablet by mouth at bedtime. [facility] empaglifloz in (JARDIANCE) 25 mg Tab 01-16 00:00: 00 Yes [id number] 25mg Take 1 tablet by mouth every morning. [facility] escitalopra m oxalate (LEXAPRO) 20 mg tablet 01-16 00:00: 00 Yes [id number] 20mg Take 1 tablet by mouth daily. [facility] glyBURIDE 5 mg tablet 01-16 00:00: 00 Yes [id number] TAKE 1 TABLET BY MOUTH TWICE DAILY WITH MEALS (NEEDS FOLLOW UP VISIT FOR FURTHER REFILLS) [facility] NUVARING (NUVARING) 0.12-0.015 mg/24 hr vaginal insert 01-16 00:00: 00 Yes [id number] 1{each} Insert 1 Each into vagina once every month. Insert vaginally and leave in place for 3 consecutiv e weeks, then remove for 1 week. [facility] atorvastati n 20 mg tablet 01-16 00:00: 00 Yes [id number] 20mg Take 1 tablet by mouth at bedtime. [facility] empaglifloz in (JARDIANCE) 25 mg Tab 01-16 00:00: 00 Yes [id number] 25mg Take 1 tablet by mouth every morning. [facility] escitalopra m oxalate (LEXAPRO) 20 mg tablet 01-16 00:00: 00 Yes [id number] 20mg Take 1 tablet by mouth daily. [facility] glyBURIDE 5 mg tablet 01-16 00:00: 00 Yes [id number] TAKE 1 TABLET BY MOUTH TWICE DAILY WITH MEALS (NEEDS FOLLOW UP VISIT FOR FURTHER REFILLS) [facility] NUVARING (NUVARING) 0.12-0.015 mg/24 hr vaginal insert 01-16 00:00: 00 Yes [id number] 1{each} Insert 1 Each into vagina once every month. Insert vaginally and leave in place for 3 consecutiv e weeks, then remove for 1 week. [facility] atorvastati n 20 mg tablet 01-16 00:00: 00 Yes [id number] 20mg Take 1 tablet by mouth at bedtime. [facility] empaglifloz in (JARDIANCE) 25 mg Tab 01-16 00:00: 00 Yes [id number] 25mg Take 1 tablet by mouth every morning. [facility] escitalopra m oxalate (LEXAPRO) 20 mg tablet 01-16 00:00: 00 Yes [id number] 20mg Take 1 tablet by mouth daily. [facility] glyBURIDE 5 mg tablet 2021-0 01-16 00:00: 00 Yes [id number] TAKE 1 TABLET BY MOUTH TWICE DAILY WITH MEALS (NEEDS FOLLOW UP VISIT FOR FURTHER REFILLS) [facility] NUVARING (NUVARING) 0.12-0.015 mg/24 hr vaginal insert 0 01-16 00:00: 00 Yes [id number] 1{each} Insert 1 Each into vagina once every month. Insert vaginally and leave in place for 3 consecutiv e weeks, then remove for 1 week. [facility] atorvastati n 20 mg tablet 0 01-16 00:00: 00 Yes [id number] 20mg Take 1 tablet by mouth at bedtime. [facility] empaglifloz in (JARDIANCE) 25 mg Tab 0 01-16 00:00: 00 Yes [id number] 25mg Take 1 tablet by mouth every morning. [facility] escitalopra m oxalate (LEXAPRO) 20 mg tablet 2021-0 01-16 00:00: 00 Yes [id number] 20mg Take 1 tablet by mouth daily. [facility] glyBURIDE 5 mg tablet 01-16 00:00: 00 Yes [id number] TAKE 1 TABLET BY MOUTH TWICE DAILY WITH MEALS (NEEDS FOLLOW UP VISIT FOR FURTHER REFILLS) [facility] NUVARING (NUVARING) 0.12-0.015 mg/24 hr vaginal insert 2021-0 01-16 00:00: 00 Yes [id number] 1{each} Insert 1 Each into vagina once every month. Insert vaginally and leave in place for 3 consecutiv e weeks, then remove for 1 week. [facility] atorvastati n 20 mg tablet 0 01-16 00:00: 00 Yes [id number] 20mg Take 1 tablet by mouth at bedtime. [facility] empaglifloz in (JARDIANCE) 25 mg Tab 0 01-16 00:00: 00 Yes [id number] 25mg Take 1 tablet by mouth every morning. [facility] escitalopra m oxalate (LEXAPRO) 20 mg tablet 01-16 00:00: 00 Yes [id number] 20mg Take 1 tablet by mouth daily. [facility] glyBURIDE 5 mg tablet 01-16 00:00: 00 Yes [id number] TAKE 1 TABLET BY MOUTH TWICE DAILY WITH MEALS (NEEDS FOLLOW UP VISIT FOR FURTHER REFILLS) [facility] NUVARING (NUVARING) 0.12-0.015 mg/24 hr vaginal insert 01-16 00:00: 00 Yes [id number] 1{each} Insert 1 Each into vagina once every month. Insert vaginally and leave in place for 3 consecutiv e weeks, then remove for 1 week. [facility] atorvastati n 20 mg tablet 01-16 00:00: 00 Yes [id number] 20mg Take 1 tablet by mouth at bedtime. [facility] empaglifloz in (JARDIANCE) 25 mg Tab 01-16 00:00: 00 Yes [id number] 25mg Take 1 tablet by mouth every morning. [facility] escitalopra m oxalate (LEXAPRO) 20 mg tablet 01-16 00:00: 00 Yes [id number] 20mg Take 1 tablet by mouth daily. [facility] glyBURIDE 5 mg tablet 01-16 00:00: 00 Yes [id number] TAKE 1 TABLET BY MOUTH TWICE DAILY WITH MEALS (NEEDS FOLLOW UP VISIT FOR FURTHER REFILLS) [facility] NUVARING (NUVARING) 0.12-0.015 mg/24 hr vaginal insert 01-16 00:00: 00 Yes [id number] 1{each} Insert 1 Each into vagina once every month. Insert vaginally and leave in place for 3 consecutiv e weeks, then remove for 1 week. [facility] atorvastati n 20 mg tablet 01-16 00:00: 00 Yes [id number] 20mg Take 1 tablet by mouth at bedtime. [facility] empaglifloz in (JARDIANCE) 25 mg Tab 01-16 00:00: 00 Yes [id number] 25mg Take 1 tablet by mouth every morning. [facility] escitalopra m oxalate (LEXAPRO) 20 mg tablet 01-16 00:00: 00 Yes [id number] 20mg Take 1 tablet by mouth daily. [facility] glyBURIDE 5 mg tablet 01-16 00:00: 00 Yes [id number] TAKE 1 TABLET BY MOUTH TWICE DAILY WITH MEALS (NEEDS FOLLOW UP VISIT FOR FURTHER REFILLS) [facility] NUVARING (NUVARING) 0.12-0.015 mg/24 hr vaginal insert 01-16 00:00: 00 Yes [id number] 1{each} Insert 1 Each into vagina once every month. Insert vaginally and leave in place for 3 consecutiv e weeks, then remove for 1 week. [facility] atorvastati n 20 mg tablet 01-16 00:00: 00 Yes [id number] 20mg Take 1 tablet by mouth at bedtime. [facility] empaglifloz in (JARDIANCE) 25 mg Tab 01-16 00:00: 00 Yes [id number] 25mg Take 1 tablet by mouth every morning. [facility] escitalopra m oxalate (LEXAPRO) 20 mg tablet 01-16 00:00: 00 Yes [id number] 20mg Take 1 tablet by mouth daily. [facility] glyBURIDE 5 mg tablet 01-16 00:00: 00 Yes [id number] TAKE 1 TABLET BY MOUTH TWICE DAILY WITH MEALS (NEEDS FOLLOW UP VISIT FOR FURTHER REFILLS) [facility] NUVARING (NUVARING) 0.12-0.015 mg/24 hr vaginal insert 01-16 00:00: 00 Yes [id number] 1{each} Insert 1 Each into vagina once every month. Insert vaginally and leave in place for 3 consecutiv e weeks, then remove for 1 week. [facility] atorvastati n 20 mg tablet 01-16 00:00: 00 Yes [id number] 20mg Take 1 tablet by mouth at bedtime. [facility] empaglifloz in (JARDIANCE) 25 mg Tab 01-16 00:00: 00 Yes [id number] 25mg Take 1 tablet by mouth every morning. [facility] escitalopra m oxalate (LEXAPRO) 20 mg tablet 01-16 00:00: 00 Yes [id number] 20mg Take 1 tablet by mouth daily. [facility] glyBURIDE 5 mg tablet 01-16 00:00: 00 Yes [id number] TAKE 1 TABLET BY MOUTH TWICE DAILY WITH MEALS (NEEDS FOLLOW UP VISIT FOR FURTHER REFILLS) [facility] NUVARING (NUVARING) 0.12-0.015 mg/24 hr vaginal insert 01-16 00:00: 00 Yes [id number] 1{each} Insert 1 Each into vagina once every month. Insert vaginally and leave in place for 3 consecutiv e weeks, then remove for 1 week. [facility] atorvastati n 20 mg tablet 01-16 00:00: 00 Yes [id number] 20mg Take 1 tablet by mouth at bedtime. [facility] empaglifloz in (JARDIANCE) 25 mg Tab 01-16 00:00: 00 Yes [id number] 25mg Take 1 tablet by mouth every morning. [facility] escitalopra m oxalate (LEXAPRO) 20 mg tablet 01-16 00:00: 00 Yes [id number] 20mg Take 1 tablet by mouth daily. [facility] glyBURIDE 5 mg tablet 01-16 00:00: 00 Yes [id number] TAKE 1 TABLET BY MOUTH TWICE DAILY WITH MEALS (NEEDS FOLLOW UP VISIT FOR FURTHER REFILLS) [facility] NUVARING (NUVARING) 0.12-0.015 mg/24 hr vaginal insert 01-16 00:00: 00 Yes [id number] 1{each} Insert 1 Each into vagina once every month. Insert vaginally and leave in place for 3 consecutiv e weeks, then remove for 1 week. [facility] atorvastati n 20 mg tablet 01-16 00:00: 00 Yes [id number] 20mg Take 1 tablet by mouth at bedtime. [facility] empaglifloz in (JARDIANCE) 25 mg Tab 01-16 00:00: 00 Yes [id number] 25mg Take 1 tablet by mouth every morning. [facility] escitalopra m oxalate (LEXAPRO) 20 mg tablet 01-16 00:00: 00 Yes [id number] 20mg Take 1 tablet by mouth daily. [facility] glyBURIDE 5 mg tablet 01-16 00:00: 00 Yes [id number] TAKE 1 TABLET BY MOUTH TWICE DAILY WITH MEALS (NEEDS FOLLOW UP VISIT FOR FURTHER REFILLS) [facility] NUVARING (NUVARING) 0.12-0.015 mg/24 hr vaginal insert 01-16 00:00: 00 Yes [id number] 1{each} Insert 1 Each into vagina once every month. Insert vaginally and leave in place for 3 consecutiv e weeks, then remove for 1 week. [facility] atorvastati n 20 mg tablet 0 01-16 00:00: 00 Yes [id number] 20mg Take 1 tablet by mouth at bedtime. [facility] empaglifloz in (JARDIANCE) 25 mg Tab 01-16 00:00: 00 Yes [id number] 25mg Take 1 tablet by mouth every morning. [facility] escitalopra m oxalate (LEXAPRO) 20 mg tablet 01-16 00:00: 00 Yes [id number] 20mg Take 1 tablet by mouth daily. [facility] glyBURIDE 5 mg tablet 0 01-16 00:00: 00 Yes [id number] TAKE 1 TABLET BY MOUTH TWICE DAILY WITH MEALS (NEEDS FOLLOW UP VISIT FOR FURTHER REFILLS) [facility] NUVARING (NUVARING) 0.12-0.015 mg/24 hr vaginal insert 2021-0 01-16 00:00: 00 Yes [id number] 1{each} Insert 1 Each into vagina once every month. Insert vaginally and leave in place for 3 consecutiv e weeks, then remove for 1 week. [facility] atorvastati n 20 mg tablet 0 01-16 00:00: 00 Yes [id number] 20mg Take 1 tablet by mouth at bedtime. [facility] empaglifloz in (JARDIANCE) 25 mg Tab 0 01-16 00:00: 00 Yes [id number] 25mg Take 1 tablet by mouth every morning. [facility] escitalopra m oxalate (LEXAPRO) 20 mg tablet 01-16 00:00: 00 Yes [id number] 20mg Take 1 tablet by mouth daily. [facility] glyBURIDE 5 mg tablet 01-16 00:00: 00 Yes [id number] TAKE 1 TABLET BY MOUTH TWICE DAILY WITH MEALS (NEEDS FOLLOW UP VISIT FOR FURTHER REFILLS) [facility] NUVARING (NUVARING) 0.12-0.015 mg/24 hr vaginal insert 01-16 00:00: 00 Yes [id number] 1{each} Insert 1 Each into vagina once every month. Insert vaginally and leave in place for 3 consecutiv e weeks, then remove for 1 week. [facility] atorvastati n 20 mg tablet 01-16 00:00: 00 Yes [id number] 20mg Take 1 tablet by mouth at bedtime. [facility] empaglifloz in (JARDIANCE) 25 mg Tab 01-16 00:00: 00 Yes [id number] 25mg Take 1 tablet by mouth every morning. [facility] escitalopra m oxalate (LEXAPRO) 20 mg tablet 0 01-16 00:00: 00 Yes [id number] 20mg Take 1 tablet by mouth daily. [facility] glyBURIDE 5 mg tablet 0 01-16 00:00: 00 Yes [id number] TAKE 1 TABLET BY MOUTH TWICE DAILY WITH MEALS (NEEDS FOLLOW UP VISIT FOR FURTHER REFILLS) [facility] atorvastati n 20 mg tablet 2021-0 01-16 00:00: 00 Yes [id number] 20mg Take 1 tablet by mouth at bedtime. [facility] empaglifloz in (JARDIANCE) 25 mg Tab 01-16 00:00: 00 Yes [id number] 25mg Take 1 tablet by mouth every morning. [facility] escitalopra m oxalate (LEXAPRO) 20 mg tablet 01-16 00:00: 00 Yes [id number] 20mg Take 1 tablet by mouth daily. [facility] glyBURIDE 5 mg tablet 01-16 00:00: 00 Yes [id number] TAKE 1 TABLET BY MOUTH TWICE DAILY WITH MEALS (NEEDS FOLLOW UP VISIT FOR FURTHER REFILLS) [facility] atorvastati n 20 mg tablet 01-16 00:00: 00 Yes [id number] 20mg Take 1 tablet by mouth at bedtime. [facility] empaglifloz in (JARDIANCE) 25 mg Tab 01-16 00:00: 00 Yes [id number] 25mg Take 1 tablet by mouth every morning. [facility] escitalopra m oxalate (LEXAPRO) 20 mg tablet 01-16 00:00: 00 Yes [id number] 20mg Take 1 tablet by mouth daily. [facility] glyBURIDE 5 mg tablet 01-16 00:00: 00 Yes [id number] TAKE 1 TABLET BY MOUTH TWICE DAILY WITH MEALS (NEEDS FOLLOW UP VISIT FOR FURTHER REFILLS) [facility] atorvastati n 20 mg tablet 01-16 00:00: 00 Yes [id number] 20mg Take 1 tablet by mouth at bedtime. [facility] empaglifloz in (JARDIANCE) 25 mg Tab 01-16 00:00: 00 Yes [id number] 25mg Take 1 tablet by mouth every morning. [facility] escitalopra m oxalate (LEXAPRO) 20 mg tablet 01-16 00:00: 00 Yes [id number] 20mg Take 1 tablet by mouth daily. [facility] glyBURIDE 5 mg tablet 2021-0 01-16 00:00: 00 Yes [id number] TAKE 1 TABLET BY MOUTH TWICE DAILY WITH MEALS (NEEDS FOLLOW UP VISIT FOR FURTHER REFILLS) [facility] atorvastati n 20 mg tablet 2021-0 01-16 00:00: 00 Yes [id number] 20mg Take 1 tablet by mouth at bedtime. [facility] empaglifloz in (JARDIANCE) 25 mg Tab 2021-0 01-16 00:00: 00 Yes [id number] 25mg Take 1 tablet by mouth every morning. [facility] escitalopra m oxalate (LEXAPRO) 20 mg tablet 0 01-16 00:00: 00 Yes [id number] 20mg Take 1 tablet by mouth daily. [facility] glyBURIDE 5 mg tablet 0 01-16 00:00: 00 Yes [id number] TAKE 1 TABLET BY MOUTH TWICE DAILY WITH MEALS (NEEDS FOLLOW UP VISIT FOR FURTHER REFILLS) [facility] atorvastati n 20 mg tablet 2021-0 01-16 00:00: 00 Yes [id number] 20mg Take 1 tablet by mouth at bedtime. [facility] empaglifloz in (JARDIANCE) 25 mg Tab 0 01-16 00:00: 00 Yes [id number] 25mg Take 1 tablet by mouth every morning. [facility] escitalopra m oxalate (LEXAPRO) 20 mg tablet 0 01-16 00:00: 00 Yes [id number] 20mg Take 1 tablet by mouth daily. [facility] glyBURIDE 5 mg tablet 2021-0 01-16 00:00: 00 Yes [id number] TAKE 1 TABLET BY MOUTH TWICE DAILY WITH MEALS (NEEDS FOLLOW UP VISIT FOR FURTHER REFILLS) [facility] atorvastati n 20 mg tablet 2021-0 01-16 00:00: 00 Yes [id number] 20mg Take 1 tablet by mouth at bedtime. [facility] empaglifloz in (JARDIANCE) 25 mg Tab 2021-0 01-16 00:00: 00 Yes [id number] 25mg Take 1 tablet by mouth every morning. [facility] escitalopra m oxalate (LEXAPRO) 20 mg tablet 2021-0 01-16 00:00: 00 Yes [id number] 20mg Take 1 tablet by mouth daily. [facility] glyBURIDE 5 mg tablet 2021-0 01-16 00:00: 00 Yes [id number] TAKE 1 TABLET BY MOUTH TWICE DAILY WITH MEALS (NEEDS FOLLOW UP VISIT FOR FURTHER REFILLS) [facility] atorvastati n 20 mg tablet 2021-0 01-16 00:00: 00 Yes [id number] 20mg Take 1 tablet by mouth at bedtime. [facility] empaglifloz in (JARDIANCE) 25 mg Tab 2021-0 01-16 00:00: 00 Yes [id number] 25mg Take 1 tablet by mouth every morning. [facility] escitalopra m oxalate (LEXAPRO) 20 mg tablet 2021-0 01-16 00:00: 00 Yes [id number] 20mg Take 1 tablet by mouth daily. [facility] glyBURIDE 5 mg tablet 2021-0 01-16 00:00: 00 Yes [id number] TAKE 1 TABLET BY MOUTH TWICE DAILY WITH MEALS (NEEDS FOLLOW UP VISIT FOR FURTHER REFILLS) [facility] atorvastati n 20 mg tablet 2021-0 01-16 00:00: 00 Yes [id number] 20mg Take 1 tablet by mouth at bedtime. [facility] empaglifloz in (JARDIANCE) 25 mg Tab 2021-0 01-16 00:00: 00 Yes [id number] 25mg Take 1 tablet by mouth every morning. [facility] escitalopra m oxalate (LEXAPRO) 20 mg tablet 2021-0 01-16 00:00: 00 Yes [id number] 20mg Take 1 tablet by mouth daily. [facility] glyBURIDE 5 mg tablet 2021-0 01-16 00:00: 00 Yes [id number] TAKE 1 TABLET BY MOUTH TWICE DAILY WITH MEALS (NEEDS FOLLOW UP VISIT FOR FURTHER REFILLS) [facility] atorvastati n 20 mg tablet 2021-0 01-16 00:00: 00 Yes [id number] 20mg Take 1 tablet by mouth at bedtime. [facility] empaglifloz in (JARDIANCE) 25 mg Tab 01-16 00:00: 00 Yes [id number] 25mg Take 1 tablet by mouth every morning. [facility] escitalopra m oxalate (LEXAPRO) 20 mg tablet 01-16 00:00: 00 Yes [id number] 20mg Take 1 tablet by mouth daily. [facility] glyBURIDE 5 mg tablet 01-16 00:00: 00 Yes [id number] TAKE 1 TABLET BY MOUTH TWICE DAILY WITH MEALS (NEEDS FOLLOW UP VISIT FOR FURTHER REFILLS) [facility] atorvastati n 20 mg tablet 01-16 00:00: 00 Yes [id number] 20mg Take 1 tablet by mouth at bedtime. [facility] empaglifloz in (JARDIANCE) 25 mg Tab 01-16 00:00: 00 Yes [id number] 25mg Take 1 tablet by mouth every morning. [facility] escitalopra m oxalate (LEXAPRO) 20 mg tablet 01-16 00:00: 00 Yes [id number] 20mg Take 1 tablet by mouth daily. [facility] glyBURIDE 5 mg tablet 01-16 00:00: 00 Yes [id number] TAKE 1 TABLET BY MOUTH TWICE DAILY WITH MEALS (NEEDS FOLLOW UP VISIT FOR FURTHER REFILLS) [facility] atorvastati n 20 mg tablet 01-16 00:00: 00 Yes [id number] 20mg Take 1 tablet by mouth at bedtime. [facility] empaglifloz in (JARDIANCE) 25 mg Tab 01-16 00:00: 00 Yes [id number] 25mg Take 1 tablet by mouth every morning. [facility] escitalopra m oxalate (LEXAPRO) 20 mg tablet 01-16 00:00: 00 Yes [id number] 20mg Take 1 tablet by mouth daily. [facility] glyBURIDE 5 mg tablet 2021-01-16 00:00: 00 Yes [id number] TAKE 1 TABLET BY MOUTH TWICE DAILY WITH MEALS (NEEDS FOLLOW UP VISIT FOR FURTHER REFILLS) [facility] atorvastati n 20 mg tablet 2021-0 01-16 00:00: 00 Yes [id number] 20mg Take 1 tablet by mouth at bedtime. [facility] empaglifloz in (JARDIANCE) 25 mg Tab 01-16 00:00: 00 Yes [id number] 25mg Take 1 tablet by mouth every morning. [facility] escitalopra m oxalate (LEXAPRO) 20 mg tablet 01-16 00:00: 00 Yes [id number] 20mg Take 1 tablet by mouth daily. [facility] glyBURIDE 5 mg tablet 01-16 00:00: 00 Yes [id number] TAKE 1 TABLET BY MOUTH TWICE DAILY WITH MEALS (NEEDS FOLLOW UP VISIT FOR FURTHER REFILLS) [facility] atorvastati n 20 mg tablet 2021-01-16 00:00: 00 Yes [id number] 20mg Take 1 tablet by mouth at bedtime. [facility] empaglifloz in (JARDIANCE) 25 mg Tab 01-16 00:00: 00 Yes [id number] 25mg Take 1 tablet by mouth every morning. [facility] escitalopra m oxalate (LEXAPRO) 20 mg tablet 01-16 00:00: 00 Yes [id number] 20mg Take 1 tablet by mouth daily. [facility] glyBURIDE 5 mg tablet 01-16 00:00: 00 Yes [id number] TAKE 1 TABLET BY MOUTH TWICE DAILY WITH MEALS (NEEDS FOLLOW UP VISIT FOR FURTHER REFILLS) [facility] atorvastati n 20 mg tablet 01-16 00:00: 00 Yes [id number] 20mg Take 1 tablet by mouth at bedtime. [facility] empaglifloz in (JARDIANCE) 25 mg Tab 01-16 00:00: 00 Yes [id number] 25mg Take 1 tablet by mouth every morning. [facility] escitalopra m oxalate (LEXAPRO) 20 mg tablet 2021-01-16 00:00: 00 Yes [id number] 20mg Take 1 tablet by mouth daily. [facility] glyBURIDE 5 mg tablet 2021-0 01-16 00:00: 00 Yes [id number] TAKE 1 TABLET BY MOUTH TWICE DAILY WITH MEALS (NEEDS FOLLOW UP VISIT FOR FURTHER REFILLS) [facility] atorvastati n 20 mg tablet 2021-0 01-16 00:00: 00 Yes [id number] 20mg Take 1 tablet by mouth at bedtime. [facility] empaglifloz in (JARDIANCE) 25 mg Tab 0 01-16 00:00: 00 Yes [id number] 25mg Take 1 tablet by mouth every morning. [facility] escitalopra m oxalate (LEXAPRO) 20 mg tablet 0 01-16 00:00: 00 Yes [id number] 20mg Take 1 tablet by mouth daily. [facility] glyBURIDE 5 mg tablet 2021-0 01-16 00:00: 00 Yes [id number] TAKE 1 TABLET BY MOUTH TWICE DAILY WITH MEALS (NEEDS FOLLOW UP VISIT FOR FURTHER REFILLS) [facility] atorvastati n 20 mg tablet 2021-0 01-16 00:00: 00 Yes [id number] 20mg Take 1 tablet by mouth at bedtime. [facility] empaglifloz in (JARDIANCE) 25 mg Tab 2021-0 01-16 00:00: 00 Yes [id number] 25mg Take 1 tablet by mouth every morning. [facility] escitalopra m oxalate (LEXAPRO) 20 mg tablet 0 01-16 00:00: 00 Yes [id number] 20mg Take 1 tablet by mouth daily. [facility] glyBURIDE 5 mg tablet 2021-0 01-16 00:00: 00 Yes [id number] TAKE 1 TABLET BY MOUTH TWICE DAILY WITH MEALS (NEEDS FOLLOW UP VISIT FOR FURTHER REFILLS) [facility] atorvastati n 20 mg tablet 2021-0 01-16 00:00: 00 Yes [id number] 20mg Take 1 tablet by mouth at bedtime. [facility] empaglifloz in (JARDIANCE) 25 mg Tab 2021-0 01-16 00:00: 00 Yes [id number] 25mg Take 1 tablet by mouth every morning. [facility] escitalopra m oxalate (LEXAPRO) 20 mg tablet 0 01-16 00:00: 00 Yes [id number] 20mg Take 1 tablet by mouth daily. [facility] glyBURIDE 5 mg tablet 2021-0 01-16 00:00: 00 Yes [id number] TAKE 1 TABLET BY MOUTH TWICE DAILY WITH MEALS (NEEDS FOLLOW UP VISIT FOR FURTHER REFILLS) [facility] atorvastati n 20 mg tablet 0 01-16 00:00: 00 Yes [id number] 20mg Take 1 tablet by mouth at bedtime. [facility] escitalopra m oxalate (LEXAPRO) 20 mg tablet 01-16 00:00: 00 Yes [id number] 20mg Take 1 tablet by mouth daily. [facility] glyBURIDE 5 mg tablet 0 01-16 00:00: 00 Yes [id number] TAKE 1 TABLET BY MOUTH TWICE DAILY WITH MEALS (NEEDS FOLLOW UP VISIT FOR FURTHER REFILLS) [facility] atorvastati n 20 mg tablet 2021-0 01-16 00:00: 00 Yes [id number] 20mg Take 1 tablet by mouth at bedtime. [facility] escitalopra m oxalate (LEXAPRO) 20 mg tablet 0 01-16 00:00: 00 Yes [id number] 20mg Take 1 tablet by mouth daily. [facility] glyBURIDE 5 mg tablet 2021-0 01-16 00:00: 00 Yes [id number] TAKE 1 TABLET BY MOUTH TWICE DAILY WITH MEALS (NEEDS FOLLOW UP VISIT FOR FURTHER REFILLS) [facility] atorvastati n 20 mg tablet 2021-0 01-16 00:00: 00 Yes [id number] 20mg Take 1 tablet by mouth at bedtime. [facility] escitalopra m oxalate (LEXAPRO) 20 mg tablet 2021-0 01-16 00:00: 00 Yes [id number] 20mg Take 1 tablet by mouth daily. [facility] glyBURIDE 5 mg tablet 2021-0 01-16 00:00: 00 Yes [id number] TAKE 1 TABLET BY MOUTH TWICE DAILY WITH MEALS (NEEDS FOLLOW UP VISIT FOR FURTHER REFILLS) [facility] atorvastati n 20 mg tablet 2021-0 01-16 00:00: 00 Yes [id number] 20mg Take 1 tablet by mouth at bedtime. [facility] escitalopra m oxalate (LEXAPRO) 20 mg tablet 2021-0 01-16 00:00: 00 Yes [id number] 20mg Take 1 tablet by mouth daily. [facility] glyBURIDE 5 mg tablet 0 01-16 00:00: 00 Yes [id number] TAKE 1 TABLET BY MOUTH TWICE DAILY WITH MEALS (NEEDS FOLLOW UP VISIT FOR FURTHER REFILLS) [facility] atorvastati n 20 mg tablet 0 01-16 00:00: 00 Yes [id number] 20mg Take 1 tablet by mouth at bedtime. [facility] escitalopra m oxalate (LEXAPRO) 20 mg tablet 0 01-16 00:00: 00 Yes [id number] 20mg Take 1 tablet by mouth daily. [facility] glyBURIDE 5 mg tablet 2021-0 01-16 00:00: 00 Yes [id number] TAKE 1 TABLET BY MOUTH TWICE DAILY WITH MEALS (NEEDS FOLLOW UP VISIT FOR FURTHER REFILLS) [facility] atorvastati n 20 mg tablet 2021-0 01-16 00:00: 00 Yes [id number] 20mg Take 1 tablet by mouth at bedtime. [facility] escitalopra m oxalate (LEXAPRO) 20 mg tablet 0 01-16 00:00: 00 Yes [id number] 20mg Take 1 tablet by mouth daily. [facility] glyBURIDE 5 mg tablet 2021-0 01-16 00:00: 00 Yes [id number] TAKE 1 TABLET BY MOUTH TWICE DAILY WITH MEALS (NEEDS FOLLOW UP VISIT FOR FURTHER REFILLS) [facility] atorvastati n 20 mg tablet 2021-0 01-16 00:00: 00 Yes [id number] 20mg Take 1 tablet by mouth at bedtime. [facility] escitalopra m oxalate (LEXAPRO) 20 mg tablet 0 01-16 00:00: 00 Yes [id number] 20mg Take 1 tablet by mouth daily. [facility] glyBURIDE 5 mg tablet 0 01-16 00:00: 00 Yes [id number] TAKE 1 TABLET BY MOUTH TWICE DAILY WITH MEALS (NEEDS FOLLOW UP VISIT FOR FURTHER REFILLS) [facility] atorvastati n 20 mg tablet 2021-0 01-16 00:00: 00 Yes [id number] 20mg Take 1 tablet by mouth at bedtime. [facility] escitalopra m oxalate (LEXAPRO) 20 mg tablet 0 01-16 00:00: 00 Yes [id number] 20mg Take 1 tablet by mouth daily. [facility] glyBURIDE 5 mg tablet 0 01-16 00:00: 00 Yes [id number] TAKE 1 TABLET BY MOUTH TWICE DAILY WITH MEALS (NEEDS FOLLOW UP VISIT FOR FURTHER REFILLS) [facility] atorvastati n 20 mg tablet 2021-0 01-16 00:00: 00 Yes [id number] 20mg Take 1 tablet by mouth at bedtime. [facility] escitalopra m oxalate (LEXAPRO) 20 mg tablet 0 01-16 00:00: 00 Yes [id number] 20mg Take 1 tablet by mouth daily. [facility] glyBURIDE 5 mg tablet 0 01-16 00:00: 00 Yes [id number] TAKE 1 TABLET BY MOUTH TWICE DAILY WITH MEALS (NEEDS FOLLOW UP VISIT FOR FURTHER REFILLS) [facility] atorvastati n 20 mg tablet 0 01-16 00:00: 00 Yes [id number] 20mg Take 1 tablet by mouth at bedtime. [facility] escitalopra m oxalate (LEXAPRO) 20 mg tablet 2021-0 01-16 00:00: 00 Yes [id number] 20mg Take 1 tablet by mouth daily. [facility] glyBURIDE 5 mg tablet 0 01-16 00:00: 00 Yes [id number] TAKE 1 TABLET BY MOUTH TWICE DAILY WITH MEALS (NEEDS FOLLOW UP VISIT FOR FURTHER REFILLS) [facility] atorvastati n 20 mg tablet 2021-0 6-06 00:00: 00 Yes [id number] 20mg Take 1 tablet by mouth at bedtime. [facility] escitalopra m oxalate (LEXAPRO) 20 mg tablet 2021-0 6-06 00:00: 00 Yes [id number] 20mg Take 1 tablet by mouth daily. [facility] glyBURIDE 5 mg tablet 2021-0 6-06 00:00: 00 Yes [id number] TAKE 1 TABLET BY MOUTH TWICE DAILY WITH MEALS (NEEDS FOLLOW UP VISIT FOR FURTHER REFILLS) [facility] atorvastati n 20 mg tablet 2021-0 6-06 00:00: 00 Yes [id number] 20mg Take 1 tablet by mouth at bedtime. [facility] escitalopra m oxalate (LEXAPRO) 20 mg tablet 2021-0 6- 00:00: 00 Yes [id number] 20mg Take 1 tablet by mouth daily. [facility] glyBURIDE 5 mg tablet 2021-0 6-06 00:00: 00 Yes [id number] TAKE 1 TABLET BY MOUTH TWICE DAILY WITH MEALS (NEEDS FOLLOW UP VISIT FOR FURTHER REFILLS) [facility] glyBURIDE 5 mg tablet 2-0 6-06 00:00: 00 10-26 00:00 :00 No [id number] TAKE 1 TABLET BY MOUTH TWICE DAILY WITH MEALS (NEEDS FOLLOW UP VISIT FOR FURTHER REFILLS) [facility] glyBURIDE 5 mg tablet 2-0 6-06 00:00: 00 10-26 00:00 :00 No [id number] TAKE 1 TABLET BY MOUTH TWICE DAILY WITH MEALS (NEEDS FOLLOW UP VISIT FOR FURTHER REFILLS) [facility] glyBURIDE 5 mg tablet 2-0 6-06 00:00: 00 10-26 00:00 :00 No [id number] TAKE 1 TABLET BY MOUTH TWICE DAILY WITH MEALS (NEEDS FOLLOW UP VISIT FOR FURTHER REFILLS) [facility] glyBURIDE 5 mg tablet 2-0 6-06 00:00: 00 10-26 00:00 :00 No [id number] TAKE 1 TABLET BY MOUTH TWICE DAILY WITH MEALS (NEEDS FOLLOW UP VISIT FOR FURTHER REFILLS) [facility] glyBURIDE 5 mg tablet 01-16 00:00: 00 10-26 00:00 :00 No [id number] TAKE 1 TABLET BY MOUTH TWICE DAILY WITH MEALS (NEEDS FOLLOW UP VISIT FOR FURTHER REFILLS) [facility] glyBURIDE 5 mg tablet 01-16 00:00: 00 10-26 00:00 :00 No [id number] TAKE 1 TABLET BY MOUTH TWICE DAILY WITH MEALS (NEEDS FOLLOW UP VISIT FOR FURTHER REFILLS) [facility] glyBURIDE 5 mg tablet 01-16 00:00: 00 10-26 00:00 :00 No [id number] TAKE 1 TABLET BY MOUTH TWICE DAILY WITH MEALS (NEEDS FOLLOW UP VISIT FOR FURTHER REFILLS) [facility] escitalopra m oxalate (LEXAPRO) 20 mg tablet 01-16 00:00: 00 10-03 00:00 :00 No [id number] 20mg Take 1 tablet by mouth daily. [facility] atorvastati n 20 mg tablet 01-16 00:00: 00 09-21 00:00 :00 No [id number] 20mg Take 1 tablet by mouth at bedtime. [facility] atorvastati n 20 mg tablet 01-16 00:00: 00 09-21 00:00 :00 No [id number] 20mg Take 1 tablet by mouth at bedtime. [facility] atorvastati n 20 mg tablet 01-16 00:00: 00 09-21 00:00 :00 No [id number] 20mg Take 1 tablet by mouth at bedtime. [facility] atorvastati n 20 mg tablet 01-16 00:00: 00 09-21 00:00 :00 No [id number] 20mg Take 1 tablet by mouth at bedtime. [facility] empaglifloz in (JARDIANCE) 25 mg Tab 01-16 00:00: 00 08-16 00:00 :00 No [id number] 25mg Take 1 tablet by mouth every morning. [facility] empaglifloz in (JARDIANCE) 25 mg Tab 2022-0 6-06 00:00: 00 08-16 00:00 :00 No [id number] 25mg Take 1 tablet by mouth every morning. [facility] empaglifloz in (JARDIANCE) 25 mg Tab 2021-0 6-06 00:00: 00 08-16 00:00 :00 No [id number] 25mg Take 1 tablet by mouth every morning. [facility] empaglifloz in (JARDIANCE) 25 mg Tab 2021-0 6-06 00:00: 00 08-16 00:00 :00 No [id number] 25mg Take 1 tablet by mouth every morning. [facility] empaglifloz in (JARDIANCE) 25 mg Tab 2021-0 6-06 00:00: 00 08-16 00:00 :00 No [id number] 25mg Take 1 tablet by mouth every morning. [facility] empaglifloz in (JARDIANCE) 25 mg Tab 2021-0 6-06 00:00: 00 08-16 00:00 :00 No [id number] 25mg Take 1 tablet by mouth every morning. [facility] NUVARING (NUVARING) 0.12-0.015 mg/24 hr vaginal insert 2021-0 6-06 00:00: 00 07-04 00:00 :00 No [id number] 1{each} Insert 1 Each into vagina once every month. Insert vaginally and leave in place for 3 consecutiv e weeks, then remove for 1 week. [facility] NUVARING (NUVARING) 0.12-0.015 mg/24 hr vaginal insert 2-0 6-06 00:00: 00 07-04 00:00 :00 No [id number] 1{each} Insert 1 Each into vagina once every month. Insert vaginally and leave in place for 3 consecutiv e weeks, then remove for 1 week. [facility] NUVARING (NUVARING) 0.12-0.015 mg/24 hr vaginal insert 01-16 00:00: 00 07-04 00:00 :00 No [id number] 1{each} Insert 1 Each into vagina once every month. Insert vaginally and leave in place for 3 consecutiv e weeks, then remove for 1 week. [facility] MELOXICAM 15 mg tablet 01-04 00:00: 00 Yes [id number] Take 1 tablet by mouth once daily [facility] MELOXICAM 15 mg tablet 01-04 00:00: 00 Yes [id number] Take 1 tablet by mouth once daily [facility] MELOXICAM 15 mg tablet 0 01-04 00:00: 00 Yes [id number] Take 1 tablet by mouth once daily [facility] MELOXICAM 15 mg tablet 01-04 00:00: 00 Yes [id number] Take 1 tablet by mouth once daily [facility] MELOXICAM 15 mg tablet 01-04 00:00: 00 Yes [id number] Take 1 tablet by mouth once daily [facility] MELOXICAM 15 mg tablet 01-04 00:00: 00 05-16 00:00 :00 No [id number] Take 1 tablet by mouth once daily [facility] MELOXICAM 15 mg tablet 01-04 00:00: 00 05-16 00:00 :00 No [id number] Take 1 tablet by mouth once daily [facility] MELOXICAM 15 mg tablet 01-04 00:00: 00 05-16 00:00 :00 No [id number] Take 1 tablet by mouth once daily [facility] GLYBURIDE 5 mg tablet 0 25 00:00: 00 01-16 00:00 :00 No [id number] TAKE 1 TABLET BY MOUTH TWICE DAILY WITH MEALS (NEEDS FOLLOW UP VISIT FOR FURTHER REFILLS) [facility] HYDROXYZINE 25 mg tablet 0 25 00:00: 00 01-11 00:00 :00 No [id number] TAKE 1 TABLET BY MOUTH EVERY 8 HOURS NEEDED FOR ANXIETY [facility] semaglutide (OZEMPIC) 1 mg/dose (2 mg/1.5 mL) PnIj 0 4-19 00:00: 00 01-16 00:00 :00 No [id number] 1mg inject 1 mg under the skin weekly. [facility] tiZANidine 4 mg tablet 0 4-12 00:00: 00 Yes 4mg Take 1 tablet by mouth 3 (three) times daily as needed (muscle spasm). [facility] tiZANidine 4 mg tablet 0 -12 00:00: 00 Yes 4mg Take 1 tablet by mouth 3 (three) times daily as needed (muscle spasm). [facility] tiZANidine 4 mg tablet 12 00:00: 00 Yes 4mg Take 1 tablet by mouth 3 (three) times daily as needed (muscle spasm). [facility] tiZANidine 4 mg tablet 0 -12 00:00: 00 Yes 4mg Take 1 tablet by mouth 3 (three) times daily as needed (muscle spasm). [facility] tiZANidine 4 mg tablet 0 12 00:00: 00 Yes 4mg Take 1 tablet by mouth 3 (three) times daily as needed (muscle spasm). [facility] tiZANidine 4 mg tablet 0 -12 00:00: 00 05-16 00:00 :00 No 4mg Take 1 tablet by mouth 3 (three) times daily as needed (muscle spasm). [facility] tiZANidine 4 mg tablet 0 -12 00:00: 00 05-16 00:00 :00 No 4mg Take 1 tablet by mouth 3 (three) times daily as needed (muscle spasm). [facility] tiZANidine 4 mg tablet 0 -12 00:00: 00 05-16 00:00 :00 No 4mg Take 1 tablet by mouth 3 (three) times daily as needed (muscle spasm). [facility] oxyCODONE 5 mg immediate release tablet 0 -12 00:00: 04-18 00:00 :00 No [id number] 5mg Take 1 tablet by mouth every 6 (six) hours as needed for Pain (scale 7-10). Indication s: acute pain [facility] PROMETHAZIN E 12.5 mg tablet 3-14 00:00: 00 01-16 00:00 :00 No [id number] TAKE 2 TABLETS BY MOUTH EVERY 6 HOURS NEEDED FOR VERTIGO [facility] ONDANSETRON 4 mg disintegrat ing tablet 2-15 00:00: 00 04-18 00:00 :00 No [id number] DISSOLVE 1 TABLET IN MOUTH EVERY 8 HOURS NEEDED FOR NAUSEA AND VOMITING FOR UP TO 4 DAYS [facility] insulin NPH (NOVOLIN N NPH U-100 INSULIN) 100 unit/mL injection 09-06 00:00: 00 04-18 00:00 :00 No [id number] INJECT 20 UNITS SUBCUTANEO USLY ONCE DAILY WITH BREAKFAST [facility] escitalopra m oxalate (LEXAPRO) 20 mg tablet 09-06 00:00: 00 01-16 00:00 :00 No [id number] 20mg Take 1 tablet by mouth daily. [facility] NOVOLIN R REGULAR U-100 INSULN 100 unit/mL solution -21 00:00: 00 04-18 00:00 :00 No [id number] INJECT 15 UNITS SUBCUTANEO USLY THREE TIMES DAILY BEFORE MEAL(S) [facility] MONTELUKAST 10 mg tablet 08-15 00:00: 00 Yes [id number] Take 1 tablet by mouth once daily [facility] MONTELUKAST 10 mg tablet 08-15 00:00: 00 Yes [id number] Take 1 tablet by mouth once daily [facility] MONTELUKAST 10 mg tablet 08-15 00:00: 00 Yes [id number] Take 1 tablet by mouth once daily [facility] MONTELUKAST 10 mg tablet 08-15 00:00: 00 Yes [id number] Take 1 tablet by mouth once daily [facility] MONTELUKAST 10 mg tablet 0 08-15 00:00: 00 Yes [id number] Take 1 tablet by mouth once daily [facility] MONTELUKAST 10 mg tablet 0 08-15 00:00: 00 Yes [id number] Take 1 tablet by mouth once daily [facility] MONTELUKAST 10 mg tablet 0 08-15 00:00: 00 Yes [id number] Take 1 tablet by mouth once daily [facility] MONTELUKAST 10 mg tablet 0 08-15 00:00: 00 Yes [id number] Take 1 tablet by mouth once daily [facility] MONTELUKAST 10 mg tablet 0 08-15 00:00: 00 Yes [id number] Take 1 tablet by mouth once daily [facility] MONTELUKAST 10 mg tablet 0 08-15 00:00: 00 Yes [id number] Take 1 tablet by mouth once daily [facility] MONTELUKAST 10 mg tablet 0 08-15 00:00: 00 Yes [id number] Take 1 tablet by mouth once daily [facility] MONTELUKAST 10 mg tablet 0 08-15 00:00: 00 Yes [id number] Take 1 tablet by mouth once daily [facility] MONTELUKAST 10 mg tablet 0 08-15 00:00: 00 Yes [id number] Take 1 tablet by mouth once daily [facility] MONTELUKAST 10 mg tablet 0 08-15 00:00: 00 Yes [id number] Take 1 tablet by mouth once daily [facility] MONTELUKAST 10 mg tablet 0 08-15 00:00: 00 Yes [id number] Take 1 tablet by mouth once daily [facility] MONTELUKAST 10 mg tablet 0 08-15 00:00: 00 Yes [id number] Take 1 tablet by mouth once daily [facility] MONTELUKAST 10 mg tablet 0 08-15 00:00: 00 Yes [id number] Take 1 tablet by mouth once daily [facility] MONTELUKAST 10 mg tablet 0 08-15 00:00: 00 Yes [id number] Take 1 tablet by mouth once daily [facility] MONTELUKAST 10 mg tablet 08-15 00:00: 00 Yes [id number] Take 1 tablet by mouth once daily [facility] MONTELUKAST 10 mg tablet 0 08-15 00:00: 00 Yes [id number] Take 1 tablet by mouth once daily [facility] MONTELUKAST 10 mg tablet 0 08-15 00:00: 00 Yes [id number] Take 1 tablet by mouth once daily [facility] MONTELUKAST 10 mg tablet 08-15 00:00: 00 Yes [id number] Take 1 tablet by mouth once daily [facility] MONTELUKAST 10 mg tablet 08-15 00:00: 00 Yes [id number] Take 1 tablet by mouth once daily [facility] MONTELUKAST 10 mg tablet 08-15 00:00: 00 Yes [id number] Take 1 tablet by mouth once daily [facility] MONTELUKAST 10 mg tablet 08-15 00:00: 00 Yes [id number] Take 1 tablet by mouth once daily [facility] MONTELUKAST 10 mg tablet 08-15 00:00: 00 07-17 00:00 :00 No [id number] Take 1 tablet by mouth once daily [facility] MONTELUKAST 10 mg tablet 08-15 00:00: 00 07-17 00:00 :00 No [id number] Take 1 tablet by mouth once daily [facility] MONTELUKAST 10 mg tablet 08-15 00:00: 00 07-17 00:00 :00 No [id number] Take 1 tablet by mouth once daily [facility] MONTELUKAST 10 mg tablet 08-15 00:00: 00 07-17 00:00 :00 No [id number] Take 1 tablet by mouth once daily [facility] MONTELUKAST 10 mg tablet 08-15 00:00: 00 07-17 00:00 :00 No [id number] Take 1 tablet by mouth once daily [facility] NUVARING (NUVARING) 0.12-0.015 mg/24 hr vaginal insert 2020-08 00:00: 00 01-16 00:00 :00 No [id number] 1{each} Insert 1 Each into vagina once every month. Insert vaginally and leave in place for 3 consecutiv e weeks, then remove for 1 week. [facility] metformin ER 500 mg 24 hr tablet 2020-08 00:00: 00 01-16 00:00 :00 No [id number] TAKE 2 TABLETS BY MOUTH ONCE DAILY IN THE MORNING AND 3 ONCE DAILY IN THE EVENING. Needs follow up visit for further refills [facility] atorvastati n 20 mg tablet 2020-08 00:00: 00 01-16 00:00 :00 No [id number] 20mg Take 1 tablet by mouth at bedtime. [facility] Guaifenesin 200 mg/5 mL Liqd 2020-08 00:00: 00 Yes [id number] 5 ml po q 6 h prn cough [facility] Guaifenesin 200 mg/5 mL Liqd 2020-08 00:00: 00 Yes [id number] 5 ml po q 6 h prn cough [facility] Guaifenesin 200 mg/5 mL Liqd 2020-08 00:00: 00 Yes [id number] 5 ml po q 6 h prn cough [facility] Guaifenesin 200 mg/5 mL Liqd 2020-08 00:00: 00 Yes [id number] 5 ml po q 6 h prn cough [facility] Guaifenesin 200 mg/5 mL Liqd 2020-08 00:00: 00 Yes [id number] 5 ml po q 6 h prn cough [facility] Guaifenesin 200 mg/5 mL Liqd 2020-08 00:00: 00 Yes [id number] 5 ml po q 6 h prn cough [facility] Guaifenesin 200 mg/5 mL Liqd 2020-08 00:00: 00 Yes [id number] 5 ml po q 6 h prn cough [facility] Guaifenesin 200 mg/5 mL Liqd 2020-08 00:00: 00 Yes [id number] 5 ml po q 6 h prn cough [facility] Guaifenesin 200 mg/5 mL Liqd 2020-08 00:00: 00 Yes [id number] 5 ml po q 6 h prn cough [facility] Guaifenesin 200 mg/5 mL Liqd 2020-08 00:00: 00 Yes [id number] 5 ml po q 6 h prn cough [facility] Guaifenesin 200 mg/5 mL Liqd 2020-08 00:00: 00 Yes [id number] 5 ml po q 6 h prn cough [facility] Guaifenesin 200 mg/5 mL Liqd 2020-08 00:00: 00 Yes [id number] 5 ml po q 6 h prn cough [facility] Guaifenesin 200 mg/5 mL Liqd 2020-08 00:00: 00 Yes [id number] 5 ml po q 6 h prn cough [facility] Guaifenesin 200 mg/5 mL Liqd 2020-08 00:00: 00 Yes [id number] 5 ml po q 6 h prn cough [facility] Guaifenesin 200 mg/5 mL Liqd 2020-08 00:00: 00 Yes [id number] 5 ml po q 6 h prn cough [facility] Guaifenesin 200 mg/5 mL Liqd 2020-08 00:00: 00 Yes [id number] 5 ml po q 6 h prn cough [facility] Guaifenesin 200 mg/5 mL Liqd 2020-08 00:00: 00 Yes [id number] 5 ml po q 6 h prn cough [facility] Guaifenesin 200 mg/5 mL Liqd 2020-08 00:00: 00 Yes [id number] 5 ml po q 6 h prn cough [facility] Guaifenesin 200 mg/5 mL Liqd 2020-08 00:00: 00 Yes [id number] 5 ml po q 6 h prn cough [facility] Guaifenesin 200 mg/5 mL Liqd 2020-08 00:00: 00 Yes [id number] 5 ml po q 6 h prn cough [facility] Guaifenesin 200 mg/5 mL Liqd 2020-08 00:00: 00 Yes [id number] 5 ml po q 6 h prn cough [facility] Guaifenesin 200 mg/5 mL Liqd 2020-08 00:00: 00 Yes [id number] 5 ml po q 6 h prn cough [facility] Guaifenesin 200 mg/5 mL Liqd 2020-08 00:00: 00 Yes [id number] 5 ml po q 6 h prn cough [facility] Guaifenesin 200 mg/5 mL Liqd 2020-08 00:00: 00 Yes [id number] 5 ml po q 6 h prn cough [facility] Guaifenesin 200 mg/5 mL Liqd 2020-08 00:00: 00 Yes [id number] 5 ml po q 6 h prn cough [facility] Guaifenesin 200 mg/5 mL Liqd 2020-08 00:00: 00 07-17 00:00 :00 No [id number] 5 ml po q 6 h prn cough [facility] Guaifenesin 200 mg/5 mL Liqd 2020-08 00:00: 00 07-17 00:00 :00 No [id number] 5 ml po q 6 h prn cough [facility] Guaifenesin 200 mg/5 mL Liqd 2020-08 00:00: 00 07-17 00:00 :00 No [id number] 5 ml po q 6 h prn cough [facility] Guaifenesin 200 mg/5 mL Liqd 2020-08 00:00: 00 07-17 00:00 :00 No [id number] 5 ml po q 6 h prn cough [facility] Guaifenesin 200 mg/5 mL Liqd 2020-08 00:00: 00 07-17 00:00 :00 No [id number] 5 ml po q 6 h prn cough [facility] mupirocin 2 % ointment 2020-08 0- 00:00: 00 Yes [id number] Apply to area(s) 3 (three) times daily. [facility] mupirocin 2 % ointment 2020-08 0 00:00: 00 Yes [id number] Apply to area(s) 3 (three) times daily. [facility] mupirocin 2 % ointment 2020-08 0 00:00: 00 Yes [id number] Apply to area(s) 3 (three) times daily. [facility] mupirocin 2 % ointment 2020-08 0 00:00: 00 Yes [id number] Apply to area(s) 3 (three) times daily. [facility] mupirocin 2 % ointment 2020-08 0-25 00:00: 00 Yes [id number] Apply to area(s) 3 (three) times daily. [facility] mupirocin 2 % ointment 2020-08 0-25 00:00: 00 Yes [id number] Apply to area(s) 3 (three) times daily. [facility] mupirocin 2 % ointment 2020-08 0-25 00:00: 00 Yes [id number] Apply to area(s) 3 (three) times daily. [facility] mupirocin 2 % ointment 2020-08 0-25 00:00: 00 Yes [id number] Apply to area(s) 3 (three) times daily. [facility] mupirocin 2 % ointment 2020- 0-25 00:00: 00 Yes [id number] Apply to area(s) 3 (three) times daily. [facility] mupirocin 2 % ointment 2020-08 0-25 00:00: 00 Yes [id number] Apply to area(s) 3 (three) times daily. [facility] mupirocin 2 % ointment 2020-08 0-25 00:00: 00 Yes [id number] Apply to area(s) 3 (three) times daily. [facility] mupirocin 2 % ointment 2020-08 0-25 00:00: 00 Yes [id number] Apply to area(s) 3 (three) times daily. [facility] mupirocin 2 % ointment 2020- 0-25 00:00: 00 Yes [id number] Apply to area(s) 3 (three) times daily. [facility] mupirocin 2 % ointment 2020- 0-25 00:00: 00 Yes [id number] Apply to area(s) 3 (three) times daily. [facility] mupirocin 2 % ointment 2020-08 0-25 00:00: 00 Yes [id number] Apply to area(s) 3 (three) times daily. [facility] mupirocin 2 % ointment 2020- 0-25 00:00: 00 Yes [id number] Apply to area(s) 3 (three) times daily. [facility] mupirocin 2 % ointment 2020- 0-25 00:00: 00 Yes [id number] Apply to area(s) 3 (three) times daily. [facility] mupirocin 2 % ointment 2020- 0-25 00:00: 00 Yes [id number] Apply to area(s) 3 (three) times daily. [facility] mupirocin 2 % ointment 2020-08 0-25 00:00: 00 Yes [id number] Apply to area(s) 3 (three) times daily. [facility] mupirocin 2 % ointment 2020-08 0-25 00:00: 00 Yes [id number] Apply to area(s) 3 (three) times daily. [facility] mupirocin 2 % ointment 2020-08 0-25 00:00: 00 Yes [id number] Apply to area(s) 3 (three) times daily. [facility] mupirocin 2 % ointment 2020-08 0-25 00:00: 00 Yes [id number] Apply to area(s) 3 (three) times daily. [facility] mupirocin 2 % ointment 2020-08 0-25 00:00: 00 Yes [id number] Apply to area(s) 3 (three) times daily. [facility] mupirocin 2 % ointment 2020-08 0-25 00:00: 00 Yes [id number] Apply to area(s) 3 (three) times daily. [facility] mupirocin 2 % ointment 2020-08 0-25 00:00: 00 Yes [id number] Apply to area(s) 3 (three) times daily. [facility] mupirocin 2 % ointment 2020-08 0-25 00:00: 00 07-17 00:00 :00 No [id number] Apply to area(s) 3 (three) times daily. [facility] mupirocin 2 % ointment 2020-08 0-25 00:00: 00 07-17 00:00 :00 No [id number] Apply to area(s) 3 (three) times daily. [facility] mupirocin 2 % ointment 2020- 0-25 00:00: 00 07-17 00:00 :00 No [id number] Apply to area(s) 3 (three) times daily. [facility] mupirocin 2 % ointment 2020-08 0 00:00: 00 07-17 00:00 :00 No [id number] Apply to area(s) 3 (three) times daily. [facility] mupirocin 2 % ointment 2020-08 0 00:00: 00 07-17 00:00 :00 No [id number] Apply to area(s) 3 (three) times daily. [facility] empaglifloz in ([place]) 9-13 00:00: 00 01-16 00:00 :00 No [id number] 10mg Take 1 tablet by mouth daily. [facility] albuterol 90 mcg/actuati on inhaler 02-16 00:00: 00 Yes [id number] 2{puff} Inhale 2 Puffs every 6 (six) hours as needed for Wheezing or Shortness of Breath. [facility] albuterol 90 mcg/actuati on inhaler 02-16 00:00: 00 Yes [id number] 2{puff} Inhale 2 Puffs every 6 (six) hours as needed for Wheezing or Shortness of Breath. [facility] albuterol 90 mcg/actuati on inhaler 02-16 00:00: 00 Yes [id number] 2{puff} Inhale 2 Puffs every 6 (six) hours as needed for Wheezing or Shortness of Breath. [facility] albuterol 90 mcg/actuati on inhaler 02-16 00:00: 00 Yes [id number] 2{puff} Inhale 2 Puffs every 6 (six) hours as needed for Wheezing or Shortness of Breath. [facility] albuterol 90 mcg/actuati on inhaler 02-16 00:00: 00 Yes [id number] 2{puff} Inhale 2 Puffs every 6 (six) hours as needed for Wheezing or Shortness of Breath. [facility] albuterol 90 mcg/actuati on inhaler 02-16 00:00: 00 Yes [id number] 2{puff} Inhale 2 Puffs every 6 (six) hours as needed for Wheezing or Shortness of Breath. [facility] albuterol 90 mcg/actuati on inhaler 02-16 00:00: 00 Yes [id number] 2{puff} Inhale 2 Puffs every 6 (six) hours as needed for Wheezing or Shortness of Breath. [facility] albuterol 90 mcg/actuati on inhaler 02-16 00:00: 00 Yes [id number] 2{puff} Inhale 2 Puffs every 6 (six) hours as needed for Wheezing or Shortness of Breath. [facility] albuterol 90 mcg/actuati on inhaler 02-16 00:00: 00 Yes [id number] 2{puff} Inhale 2 Puffs every 6 (six) hours as needed for Wheezing or Shortness of Breath. [facility] albuterol 90 mcg/actuati on inhaler 02-16 00:00: 00 Yes [id number] 2{puff} Inhale 2 Puffs every 6 (six) hours as needed for Wheezing or Shortness of Breath. [facility] albuterol 90 mcg/actuati on inhaler 02-16 00:00: 00 Yes [id number] 2{puff} Inhale 2 Puffs every 6 (six) hours as needed for Wheezing or Shortness of Breath. [facility] albuterol 90 mcg/actuati on inhaler 02-16 00:00: 00 Yes [id number] 2{puff} Inhale 2 Puffs every 6 (six) hours as needed for Wheezing or Shortness of Breath. [facility] albuterol 90 mcg/actuati on inhaler 02-16 00:00: 00 Yes [id number] 2{puff} Inhale 2 Puffs every 6 (six) hours as needed for Wheezing or Shortness of Breath. [facility] albuterol 90 mcg/actuati on inhaler 02-16 00:00: 00 Yes [id number] 2{puff} Inhale 2 Puffs every 6 (six) hours as needed for Wheezing or Shortness of Breath. [facility] albuterol 90 mcg/actuati on inhaler 02-16 00:00: 00 Yes [id number] 2{puff} Inhale 2 Puffs every 6 (six) hours as needed for Wheezing or Shortness of Breath. [facility] albuterol 90 mcg/actuati on inhaler 02-16 00:00: 00 Yes [id number] 2{puff} Inhale 2 Puffs every 6 (six) hours as needed for Wheezing or Shortness of Breath. [facility] albuterol 90 mcg/actuati on inhaler 02-16 00:00: 00 Yes [id number] 2{puff} Inhale 2 Puffs every 6 (six) hours as needed for Wheezing or Shortness of Breath. [facility] albuterol 90 mcg/actuati on inhaler 02-16 00:00: 00 Yes [id number] 2{puff} Inhale 2 Puffs every 6 (six) hours as needed for Wheezing or Shortness of Breath. [facility] albuterol 90 mcg/actuati on inhaler 02-16 00:00: 00 Yes [id number] 2{puff} Inhale 2 Puffs every 6 (six) hours as needed for Wheezing or Shortness of Breath. [facility] albuterol 90 mcg/actuati on inhaler 02-16 00:00: 00 Yes [id number] 2{puff} Inhale 2 Puffs every 6 (six) hours as needed for Wheezing or Shortness of Breath. [facility] albuterol 90 mcg/actuati on inhaler 02-16 00:00: 00 Yes [id number] 2{puff} Inhale 2 Puffs every 6 (six) hours as needed for Wheezing or Shortness of Breath. [facility] albuterol 90 mcg/actuati on inhaler 02-16 00:00: 00 Yes [id number] 2{puff} Inhale 2 Puffs every 6 (six) hours as needed for Wheezing or Shortness of Breath. [facility] albuterol 90 mcg/actuati on inhaler 02-16 00:00: 00 Yes [id number] 2{puff} Inhale 2 Puffs every 6 (six) hours as needed for Wheezing or Shortness of Breath. [facility] albuterol 90 mcg/actuati on inhaler 02-16 00:00: 00 Yes [id number] 2{puff} Inhale 2 Puffs every 6 (six) hours as needed for Wheezing or Shortness of Breath. [facility] albuterol 90 mcg/actuati on inhaler 02-16 00:00: 00 Yes [id number] 2{puff} Inhale 2 Puffs every 6 (six) hours as needed for Wheezing or Shortness of Breath. [facility] albuterol 90 mcg/actuati on inhaler 02-16 00:00: 00 Yes [id number] 2{puff} Inhale 2 Puffs every 6 (six) hours as needed for Wheezing or Shortness of Breath. [facility] albuterol 90 mcg/actuati on inhaler 02-16 00:00: 00 Yes [id number] 2{puff} Inhale 2 Puffs every 6 (six) hours as needed for Wheezing or Shortness of Breath. [facility] albuterol 90 mcg/actuati on inhaler 02-16 00:00: 00 Yes [id number] 2{puff} Inhale 2 Puffs every 6 (six) hours as needed for Wheezing or Shortness of Breath. [facility] albuterol 90 mcg/actuati on inhaler 02-16 00:00: 00 Yes [id number] 2{puff} Inhale 2 Puffs every 6 (six) hours as needed for Wheezing or Shortness of Breath. [facility] albuterol 90 mcg/actuati on inhaler 02-16 00:00: 00 Yes [id number] 2{puff} Inhale 2 Puffs every 6 (six) hours as needed for Wheezing or Shortness of Breath. [facility] albuterol 90 mcg/actuati on inhaler 02-16 00:00: 00 Yes [id number] 2{puff} Inhale 2 Puffs every 6 (six) hours as needed for Wheezing or Shortness of Breath. [facility] albuterol 90 mcg/actuati on inhaler 02-16 00:00: 00 Yes [id number] 2{puff} Inhale 2 Puffs every 6 (six) hours as needed for Wheezing or Shortness of Breath. [facility] albuterol 90 mcg/actuati on inhaler 02-16 00:00: 00 Yes [id number] 2{puff} Inhale 2 Puffs every 6 (six) hours as needed for Wheezing or Shortness of Breath. [facility] albuterol 90 mcg/actuati on inhaler 02-16 00:00: 00 Yes [id number] 2{puff} Inhale 2 Puffs every 6 (six) hours as needed for Wheezing or Shortness of Breath. [facility] albuterol 90 mcg/actuati on inhaler 02-16 00:00: 00 Yes [id number] 2{puff} Inhale 2 Puffs every 6 (six) hours as needed for Wheezing or Shortness of Breath. [facility] albuterol 90 mcg/actuati on inhaler 02-16 00:00: 00 Yes [id number] 2{puff} Inhale 2 Puffs every 6 (six) hours as needed for Wheezing or Shortness of Breath. [facility] albuterol 90 mcg/actuati on inhaler 02-16 00:00: 00 Yes [id number] 2{puff} Inhale 2 Puffs every 6 (six) hours as needed for Wheezing or Shortness of Breath. [facility] albuterol 90 mcg/actuati on inhaler 02-16 00:00: 00 Yes [id number] 2{puff} Inhale 2 Puffs every 6 (six) hours as needed for Wheezing or Shortness of Breath. [facility] albuterol 90 mcg/actuati on inhaler 02-16 00:00: 00 Yes [id number] 2{puff} Inhale 2 Puffs every 6 (six) hours as needed for Wheezing or Shortness of Breath. [facility] albuterol 90 mcg/actuati on inhaler 02-16 00:00: 00 Yes [id number] 2{puff} Inhale 2 Puffs every 6 (six) hours as needed for Wheezing or Shortness of Breath. [facility] albuterol 90 mcg/actuati on inhaler 02-16 00:00: 00 Yes [id number] 2{puff} Inhale 2 Puffs every 6 (six) hours as needed for Wheezing or Shortness of Breath. [facility] albuterol 90 mcg/actuati on inhaler 02-16 00:00: 00 Yes [id number] 2{puff} Inhale 2 Puffs every 6 (six) hours as needed for Wheezing or Shortness of Breath. [facility] albuterol 90 mcg/actuati on inhaler 02-16 00:00: 00 Yes [id number] 2{puff} Inhale 2 Puffs every 6 (six) hours as needed for Wheezing or Shortness of Breath. [facility] albuterol 90 mcg/actuati on inhaler 02-16 00:00: 00 Yes [id number] 2{puff} Inhale 2 Puffs every 6 (six) hours as needed for Wheezing or Shortness of Breath. [facility] albuterol 90 mcg/actuati on inhaler 02-16 00:00: 00 Yes [id number] 2{puff} Inhale 2 Puffs every 6 (six) hours as needed for Wheezing or Shortness of Breath. [facility] albuterol 90 mcg/actuati on inhaler 02-16 00:00: 00 Yes [id number] 2{puff} Inhale 2 Puffs every 6 (six) hours as needed for Wheezing or Shortness of Breath. [facility] albuterol 90 mcg/actuati on inhaler 02-16 00:00: 00 Yes [id number] 2{puff} Inhale 2 Puffs every 6 (six) hours as needed for Wheezing or Shortness of Breath. [facility] albuterol 90 mcg/actuati on inhaler 02-16 00:00: 00 Yes [id number] 2{puff} Inhale 2 Puffs every 6 (six) hours as needed for Wheezing or Shortness of Breath. [facility] albuterol 90 mcg/actuati on inhaler 02-16 00:00: 00 Yes [id number] 2{puff} Inhale 2 Puffs every 6 (six) hours as needed for Wheezing or Shortness of Breath. [facility] albuterol 90 mcg/actuati on inhaler 02-16 00:00: 00 Yes [id number] 2{puff} Inhale 2 Puffs every 6 (six) hours as needed for Wheezing or Shortness of Breath. [facility] albuterol 90 mcg/actuati on inhaler 02-16 00:00: 00 Yes [id number] 2{puff} Inhale 2 Puffs every 6 (six) hours as needed for Wheezing or Shortness of Breath. [facility] albuterol 90 mcg/actuati on inhaler 02-16 00:00: 00 Yes [id number] 2{puff} Inhale 2 Puffs every 6 (six) hours as needed for Wheezing or Shortness of Breath. [facility] albuterol 90 mcg/actuati on inhaler 02-16 00:00: 00 Yes [id number] 2{puff} Inhale 2 Puffs every 6 (six) hours as needed for Wheezing or Shortness of Breath. [facility] albuterol 90 mcg/actuati on inhaler 02-16 00:00: 00 Yes [id number] 2{puff} Inhale 2 Puffs every 6 (six) hours as needed for Wheezing or Shortness of Breath. [facility] albuterol 90 mcg/actuati on inhaler 02-16 00:00: 00 Yes [id number] 2{puff} Inhale 2 Puffs every 6 (six) hours as needed for Wheezing or Shortness of Breath. [facility] albuterol 90 mcg/actuati on inhaler 02-16 00:00: 00 Yes [id number] 2{puff} Inhale 2 Puffs every 6 (six) hours as needed for Wheezing or Shortness of Breath. [facility] albuterol 90 mcg/actuati on inhaler 02-16 00:00: 00 Yes [id number] 2{puff} Inhale 2 Puffs every 6 (six) hours as needed for Wheezing or Shortness of Breath. [facility] albuterol 90 mcg/actuati on inhaler 02-16 00:00: 00 Yes [id number] 2{puff} Inhale 2 Puffs every 6 (six) hours as needed for Wheezing or Shortness of Breath. [facility] albuterol 90 mcg/actuati on inhaler 02-16 00:00: 00 Yes [id number] 2{puff} Inhale 2 Puffs every 6 (six) hours as needed for Wheezing or Shortness of Breath. [facility] albuterol 90 mcg/actuati on inhaler 02-16 00:00: 00 Yes [id number] 2{puff} Inhale 2 Puffs every 6 (six) hours as needed for Wheezing or Shortness of Breath. [facility] albuterol 90 mcg/actuati on inhaler 02-16 00:00: 00 Yes [id number] 2{puff} Inhale 2 Puffs every 6 (six) hours as needed for Wheezing or Shortness of Breath. [facility] albuterol 90 mcg/actuati on inhaler 02-16 00:00: 00 Yes [id number] 2{puff} Inhale 2 Puffs every 6 (six) hours as needed for Wheezing or Shortness of Breath. [facility] albuterol 90 mcg/actuati on inhaler 02-16 00:00: 00 Yes [id number] 2{puff} Inhale 2 Puffs every 6 (six) hours as needed for Wheezing or Shortness of Breath. [facility] albuterol 90 mcg/actuati on inhaler 02-16 00:00: 00 Yes [id number] 2{puff} Inhale 2 Puffs every 6 (six) hours as needed for Wheezing or Shortness of Breath. [facility] albuterol 90 mcg/actuati on inhaler 02-16 00:00: 00 Yes [id number] 2{puff} Inhale 2 Puffs every 6 (six) hours as needed for Wheezing or Shortness of Breath. [facility] albuterol 90 mcg/actuati on inhaler 02-16 00:00: 00 Yes [id number] 2{puff} Inhale 2 Puffs every 6 (six) hours as needed for Wheezing or Shortness of Breath. [facility] albuterol 90 mcg/actuati on inhaler 02-16 00:00: 00 Yes [id number] 2{puff} Inhale 2 Puffs every 6 (six) hours as needed for Wheezing or Shortness of Breath. [facility] albuterol 90 mcg/actuati on inhaler 02-16 00:00: 00 Yes [id number] 2{puff} Inhale 2 Puffs every 6 (six) hours as needed for Wheezing or Shortness of Breath. [facility] albuterol 90 mcg/actuati on inhaler 02-16 00:00: 00 Yes [id number] 2{puff} Inhale 2 Puffs every 6 (six) hours as needed for Wheezing or Shortness of Breath. [facility] albuterol 90 mcg/actuati on inhaler 02-16 00:00: 00 Yes [id number] 2{puff} Inhale 2 Puffs every 6 (six) hours as needed for Wheezing or Shortness of Breath. [facility] albuterol 90 mcg/actuati on inhaler 02-16 00:00: 00 Yes [id number] 2{puff} Inhale 2 Puffs every 6 (six) hours as needed for Wheezing or Shortness of Breath. [facility] albuterol 90 mcg/actuati on inhaler 02-16 00:00: 00 Yes [id number] 2{puff} Inhale 2 Puffs every 6 (six) hours as needed for Wheezing or Shortness of Breath. [facility] albuterol 90 mcg/actuati on inhaler 02-16 00:00: 00 Yes [id number] 2{puff} Inhale 2 Puffs every 6 (six) hours as needed for Wheezing or Shortness of Breath. [facility] albuterol 90 mcg/actuati on inhaler 02-16 00:00: 00 Yes [id number] 2{puff} Inhale 2 Puffs every 6 (six) hours as needed for Wheezing or Shortness of Breath. [facility] albuterol 90 mcg/actuati on inhaler 02-16 00:00: 00 Yes [id number] 2{puff} Inhale 2 Puffs every 6 (six) hours as needed for Wheezing or Shortness of Breath. [facility] albuterol 90 mcg/actuati on inhaler 02-16 00:00: 00 Yes [id number] 2{puff} Inhale 2 Puffs every 6 (six) hours as needed for Wheezing or Shortness of Breath. [facility] albuterol 90 mcg/actuati on inhaler 02-16 00:00: 00 Yes [id number] 2{puff} Inhale 2 Puffs every 6 (six) hours as needed for Wheezing or Shortness of Breath. [facility] albuterol 90 mcg/actuati on inhaler 02-16 00:00: 00 Yes [id number] 2{puff} Inhale 2 Puffs every 6 (six) hours as needed for Wheezing or Shortness of Breath. [facility] albuterol 90 mcg/actuati on inhaler 02-16 00:00: 00 Yes [id number] 2{puff} Inhale 2 Puffs every 6 (six) hours as needed for Wheezing or Shortness of Breath. [facility] albuterol 90 mcg/actuati on inhaler 02-16 00:00: 00 Yes [id number] 2{puff} Inhale 2 Puffs every 6 (six) hours as needed for Wheezing or Shortness of Breath. [facility] albuterol 90 mcg/actuati on inhaler 02-16 00:00: 00 Yes [id number] 2{puff} Inhale 2 Puffs every 6 (six) hours as needed for Wheezing or Shortness of Breath. [facility] albuterol 90 mcg/actuati on inhaler 02-16 00:00: 00 Yes [id number] 2{puff} Inhale 2 Puffs every 6 (six) hours as needed for Wheezing or Shortness of Breath. [facility] albuterol 90 mcg/actuati on inhaler 02-16 00:00: 00 Yes [id number] 2{puff} Inhale 2 Puffs every 6 (six) hours as needed for Wheezing or Shortness of Breath. [facility] albuterol 90 mcg/actuati on inhaler 02-16 00:00: 00 Yes [id number] 2{puff} Inhale 2 Puffs every 6 (six) hours as needed for Wheezing or Shortness of Breath. [facility] albuterol 90 mcg/actuati on inhaler 02-16 00:00: 00 Yes [id number] 2{puff} Inhale 2 Puffs every 6 (six) hours as needed for Wheezing or Shortness of Breath. [facility] albuterol 90 mcg/actuati on inhaler 02-16 00:00: 00 Yes [id number] 2{puff} Inhale 2 Puffs every 6 (six) hours as needed for Wheezing or Shortness of Breath. [facility] albuterol 90 mcg/actuati on inhaler 02-16 00:00: 00 Yes [id number] 2{puff} Inhale 2 Puffs every 6 (six) hours as needed for Wheezing or Shortness of Breath. [facility] albuterol 90 mcg/actuati on inhaler 02-16 00:00: 00 Yes [id number] 2{puff} Inhale 2 Puffs every 6 (six) hours as needed for Wheezing or Shortness of Breath. [facility] albuterol 90 mcg/actuati on inhaler 02-16 00:00: 00 Yes [id number] 2{puff} Inhale 2 Puffs every 6 (six) hours as needed for Wheezing or Shortness of Breath. [facility] albuterol 90 mcg/actuati on inhaler 02-16 00:00: 00 Yes [id number] 2{puff} Inhale 2 Puffs every 6 (six) hours as needed for Wheezing or Shortness of Breath. [facility] albuterol 90 mcg/actuati on inhaler 02-16 00:00: 00 Yes [id number] 2{puff} Inhale 2 Puffs every 6 (six) hours as needed for Wheezing or Shortness of Breath. [facility] albuterol 90 mcg/actuati on inhaler 02-16 00:00: 00 Yes [id number] 2{puff} Inhale 2 Puffs every 6 (six) hours as needed for Wheezing or Shortness of Breath. [facility] albuterol 90 mcg/actuati on inhaler 02-16 00:00: 00 Yes [id number] 2{puff} Inhale 2 Puffs every 6 (six) hours as needed for Wheezing or Shortness of Breath. [facility] albuterol 90 mcg/actuati on inhaler 02-16 00:00: 00 Yes [id number] 2{puff} Inhale 2 Puffs every 6 (six) hours as needed for Wheezing or Shortness of Breath. [facility] albuterol 90 mcg/actuati on inhaler 02-16 00:00: 00 Yes [id number] 2{puff} Inhale 2 Puffs every 6 (six) hours as needed for Wheezing or Shortness of Breath. [facility] albuterol 90 mcg/actuati on inhaler 02-16 00:00: 00 Yes [id number] 2{puff} Inhale 2 Puffs every 6 (six) hours as needed for Wheezing or Shortness of Breath. [facility] albuterol 90 mcg/actuati on inhaler 02-16 00:00: 00 Yes [id number] 2{puff} Inhale 2 Puffs every 6 (six) hours as needed for Wheezing or Shortness of Breath. [facility] albuterol 90 mcg/actuati on inhaler 02-16 00:00: 00 Yes [id number] 2{puff} Inhale 2 Puffs every 6 (six) hours as needed for Wheezing or Shortness of Breath. [facility] albuterol 90 mcg/actuati on inhaler 02-16 00:00: 00 Yes [id number] 2{puff} Inhale 2 Puffs every 6 (six) hours as needed for Wheezing or Shortness of Breath. [facility] albuterol 90 mcg/actuati on inhaler 02-16 00:00: 00 Yes [id number] 2{puff} Inhale 2 Puffs every 6 (six) hours as needed for Wheezing or Shortness of Breath. [facility] albuterol 90 mcg/actuati on inhaler 02-16 00:00: 00 Yes [id number] 2{puff} Inhale 2 Puffs every 6 (six) hours as needed for Wheezing or Shortness of Breath. [facility] albuterol 90 mcg/actuati on inhaler 02-16 00:00: 00 Yes [id number] 2{puff} Inhale 2 Puffs every 6 (six) hours as needed for Wheezing or Shortness of Breath. [facility] albuterol 90 mcg/actuati on inhaler 02-16 00:00: 00 Yes [id number] 2{puff} Inhale 2 Puffs every 6 (six) hours as needed for Wheezing or Shortness of Breath. [facility] albuterol 90 mcg/actuati on inhaler 02-16 00:00: 00 Yes [id number] 2{puff} Inhale 2 Puffs every 6 (six) hours as needed for Wheezing or Shortness of Breath. [facility] albuterol 90 mcg/actuati on inhaler 02-16 00:00: 00 Yes [id number] 2{puff} Inhale 2 Puffs every 6 (six) hours as needed for Wheezing or Shortness of Breath. [facility] albuterol 90 mcg/actuati on inhaler 02-16 00:00: 00 Yes [id number] 2{puff} Inhale 2 Puffs every 6 (six) hours as needed for Wheezing or Shortness of Breath. [facility] albuterol 90 mcg/actuati on inhaler 02-16 00:00: 00 Yes [id number] 2{puff} Inhale 2 Puffs every 6 (six) hours as needed for Wheezing or Shortness of Breath. [facility] albuterol 90 mcg/actuati on inhaler 02-16 00:00: 00 11-29 00:00 :00 No [id number] 2{puff} Inhale 2 Puffs every 6 (six) hours as needed for Wheezing or Shortness of Breath. [facility] albuterol 90 mcg/actuati on inhaler 02-16 00:00: 00 11-29 00:00 :00 No [id number] 2{puff} Inhale 2 Puffs every 6 (six) hours as needed for Wheezing or Shortness of Breath. [facility] albuterol 90 mcg/actuati on inhaler 02-16 00:00: 00 11-29 00:00 :00 No [id number] 2{puff} Inhale 2 Puffs every 6 (six) hours as needed for Wheezing or Shortness of Breath. [facility] albuterol 90 mcg/actuati on inhaler 02-16 00:00: 00 11-29 00:00 :00 No [id number] 2{puff} Inhale 2 Puffs every 6 (six) hours as needed for Wheezing or Shortness of Breath. [facility] hydrOXYzine 25 mg tablet 01-13 00:00: 00 06-02 00:00 :00 No [id number] 25mg Take 1 tablet by mouth every 6 (six) hours. TAKE 1-2 TABS PO Q6 HOURS PRN FOR ANXIETY [facility] metformin ER 500 mg 24 hr tablet 01-04 00:00: 00 06-27 00:00 :00 No [id number] TAKE 2 TABLETS BY MOUTH ONCE DAILY IN THE MORNING AND 3 ONCE DAILY IN THE EVENING. Needs follow up visit for further refills [facility] atorvastati n 20 mg tablet 25 00:00: 00 06-27 00:00 :00 No [id number] 20mg Take 1 tablet by mouth at bedtime. [facility] ondansetron (ZOFRAN ODT) 4 mg disintegrat ing tablet 20 00:00: 00 09-27 00:00 :00 No [id number] 4mg Take 1 tablet by mouth every 8 (eight) hours as needed for Nausea and Vomiting (N/V) for up to 4 days. [facility] hydrocortis one-pramovi ne rectal foam 12-13 00:00: 00 Yes [id number] 1{appli cator} Insert 1 Applicator into rectum 2 (two) times daily. [facility] hydrocortis one-pramovi ne rectal foam 0 12-13 00:00: 00 Yes [id number] 1{appli cator} Insert 1 Applicator into rectum 2 (two) times daily. [facility] hydrocortis one-pramovi ne rectal foam 0 12-13 00:00: 00 Yes [id number] 1{appli cator} Insert 1 Applicator into rectum 2 (two) times daily. [facility] hydrocortis one-pramovi ne rectal foam 0 12-13 00:00: 00 Yes [id number] 1{appli cator} Insert 1 Applicator into rectum 2 (two) times daily. [facility] hydrocortis one-pramovi ne rectal foam 0 - 00:00: 00 Yes [id number] 1{appli cator} Insert 1 Applicator into rectum 2 (two) times daily. [facility] hydrocortis one-pramovi ne rectal foam 2020-0 - 00:00: 00 Yes [id number] 1{appli cator} Insert 1 Applicator into rectum 2 (two) times daily. [facility] hydrocortis one-pramovi ne rectal foam 2020-0 -03 00:00: 00 Yes [id number] 1{appli cator} Insert 1 Applicator into rectum 2 (two) times daily. [facility] hydrocortis one-pramovi ne rectal foam 1-0 5-03 00:00: 00 Yes [id number] 1{appli cator} Insert 1 Applicator into rectum 2 (two) times daily. [facility] hydrocortis one-pramovi ne rectal foam 1-0 5-03 00:00: 00 Yes [id number] 1{appli cator} Insert 1 Applicator into rectum 2 (two) times daily. [facility] hydrocortis one-pramovi ne rectal foam 1-0 5-03 00:00: 00 Yes [id number] 1{appli cator} Insert 1 Applicator into rectum 2 (two) times daily. [facility] hydrocortis one-pramovi ne rectal foam 1-0 5-03 00:00: 00 Yes [id number] 1{appli cator} Insert 1 Applicator into rectum 2 (two) times daily. [facility] hydrocortis one-pramovi ne rectal foam 1-0 5-03 00:00: 00 Yes [id number] 1{appli cator} Insert 1 Applicator into rectum 2 (two) times daily. [facility] hydrocortis one-pramovi ne rectal foam 1-0 5-03 00:00: 00 Yes [id number] 1{appli cator} Insert 1 Applicator into rectum 2 (two) times daily. [facility] hydrocortis one-pramovi ne rectal foam 1-0 5-03 00:00: 00 Yes [id number] 1{appli cator} Insert 1 Applicator into rectum 2 (two) times daily. [facility] hydrocortis one-pramovi ne rectal foam 1-0 5-03 00:00: 00 Yes [id number] 1{appli cator} Insert 1 Applicator into rectum 2 (two) times daily. [facility] hydrocortis one-pramovi ne rectal foam 2021-0 5-03 00:00: 00 Yes [id number] 1{appli cator} Insert 1 Applicator into rectum 2 (two) times daily. [facility] hydrocortis one-pramovi ne rectal foam 1-0 -03 00:00: 00 Yes [id number] 1{appli cator} Insert 1 Applicator into rectum 2 (two) times daily. [facility] hydrocortis one-pramovi ne rectal foam 2020-0 5-03 00:00: 00 Yes [id number] 1{appli cator} Insert 1 Applicator into rectum 2 (two) times daily. [facility] hydrocortis one-pramovi ne rectal foam 1-0 -03 00:00: 00 Yes [id number] 1{appli cator} Insert 1 Applicator into rectum 2 (two) times daily. [facility] hydrocortis one-pramovi ne rectal foam 1-0 -03 00:00: 00 Yes [id number] 1{appli cator} Insert 1 Applicator into rectum 2 (two) times daily. [facility] hydrocortis one-pramovi ne rectal foam 1-0 -03 00:00: 00 Yes [id number] 1{appli cator} Insert 1 Applicator into rectum 2 (two) times daily. [facility] hydrocortis one-pramovi ne rectal foam 1-0 -03 00:00: 00 Yes [id number] 1{appli cator} Insert 1 Applicator into rectum 2 (two) times daily. [facility] hydrocortis one-pramovi ne rectal foam 1-0 5-03 00:00: 00 Yes [id number] 1{appli cator} Insert 1 Applicator into rectum 2 (two) times daily. [facility] hydrocortis one-pramovi ne rectal foam 1-0 5-03 00:00: 00 Yes [id number] 1{appli cator} Insert 1 Applicator into rectum 2 (two) times daily. [facility] hydrocortis one-pramovi ne rectal foam 1-0 5-03 00:00: 00 Yes [id number] 1{appli cator} Insert 1 Applicator into rectum 2 (two) times daily. [facility] hydrocortis one-pramovi ne rectal foam 12-13 00:00: 00 07-17 00:00 :00 No [id number] 1{appli cator} Insert 1 Applicator into rectum 2 (two) times daily. [facility] hydrocortis one-pramovi ne rectal foam 12-13 00:00: 00 07-17 00:00 :00 No [id number] 1{appli cator} Insert 1 Applicator into rectum 2 (two) times daily. [facility] hydrocortis one-pramovi ne rectal foam 12-13 00:00: 00 07-17 00:00 :00 No [id number] 1{appli cator} Insert 1 Applicator into rectum 2 (two) times daily. [facility] hydrocortis one-pramovi ne rectal foam 12-13 00:00: 00 07-17 00:00 :00 No [id number] 1{appli cator} Insert 1 Applicator into rectum 2 (two) times daily. [facility] hydrocortis one-pramovi ne rectal foam 12-13 00:00: 00 07-17 00:00 :00 No [id number] 1{appli cator} Insert 1 Applicator into rectum 2 (two) times daily. [facility] hydrocortis one-pramovi ne rectal foam 12-13 00:00: 00 07-17 00:00 :00 No [id number] 1{appli cator} Insert 1 Applicator into rectum 2 (two) times daily. [facility] insulin NPH (NOVOLIN N NPH U-100 INSULIN) 100 unit/mL injection 10-13 00:00: 00 09-06 00:00 :00 No [id number] INJECT 20 UNITS SUBCUTANEO USLY ONCE DAILY WITH BREAKFAST [facility] insulin regular human (NOVOLIN R REGULAR U-100 INSULN) 100 unit/mL injection 10-13 00:00: 00 09-02 00:00 :00 No [id number] 15U inject 15 Units under the skin 3 (three) times daily before meals. [facility] glyBURIDE 5 mg tablet 10-13 00:00: 00 06-27 00:00 :00 No [id number] 5mg Take 1 tablet by mouth 2 (two) times daily with meals. Needs follow up visit for further refills [facility] Insulin Syringe-Nee dle U-100 1 mL 31 gauge x 5/16 Syrg 2019-08-24 00:00: 00 Yes Use as directed [facility] Insulin Syringe-Nee dle U-100 1 mL 31 gauge x 5/16 Syrg 2019-08-24 00:00: 00 Yes Use as directed [facility] Insulin Syringe-Nee dle U-100 1 mL 31 gauge x 5/16 Syrg 2019-08-24 00:00: 00 Yes Use as directed [facility] Insulin Syringe-Nee dle U-100 1 mL 31 gauge x 5/16 Syrg 2019-08-24 00:00: 00 Yes Use as directed [facility] Insulin Syringe-Nee dle U-100 1 mL 31 gauge x 5/16 Syrg 2019-08-24 00:00: 00 Yes Use as directed [facility] Insulin Syringe-Nee dle U-100 1 mL 31 gauge x 5/16 Syrg 2019-08-24 00:00: 00 Yes Use as directed [facility] Insulin Syringe-Nee dle U-100 1 mL 31 gauge x 5/16 Syrg 2019-08 13- 00:00: 00 Yes Use as directed [facility] Insulin Syringe-Nee dle U-100 1 mL 31 gauge x 5/16 Syrg 2019-08-24 00:00: 00 Yes Use as directed [facility] Insulin Syringe-Nee dle U-100 1 mL 31 gauge x 5/16 Syrg 2019-1 - 00:00: 00 Yes Use as directed [facility] Insulin Syringe-Nee dle U-100 1 mL 31 gauge x 5/16 Syrg 2019-08 13- 00:00: 00 Yes Use as directed [facility] Insulin Syringe-Nee dle U-100 1 mL 31 gauge x 5/16 Syrg 2019-08- 00:00: 00 Yes Use as directed [facility] Insulin Syringe-Nee dle U-100 1 mL 31 gauge x 5/16 Syrg 2019-08 13- 00:00: 00 Yes Use as directed [facility] Insulin Syringe-Nee dle U-100 1 mL 31 gauge x 5/16 Syrg 2019-08- 00:00: 00 Yes Use as directed [facility] Insulin Syringe-Nee dle U-100 1 mL 31 gauge x 5/16 Syrg 2019-08 13- 00:00: 00 Yes Use as directed [facility] Insulin Syringe-Nee dle U-100 1 mL 31 gauge x 5/16 Syrg 2019-08-24 00:00: 00 Yes Use as directed [facility] Insulin Syringe-Nee dle U-100 1 mL 31 gauge x 5/16 Syrg 2019-08 00:00: 00 Yes Use as directed [facility] Insulin Syringe-Nee dle U-100 1 mL 31 gauge x 5/16 Syrg 2019-08 00:00: 00 Yes Use as directed [facility] Insulin Syringe-Nee dle U-100 1 mL 31 gauge x 5/16 Syrg 2019-08-24 00:00: 00 Yes Use as directed [facility] Insulin Syringe-Nee dle U-100 1 mL 31 gauge x 5/16 Syrg 2019-08- 00:00: 00 Yes Use as directed [facility] Insulin Syringe-Nee dle U-100 1 mL 31 gauge x 5/16 Syrg 2019-1 - 00:00: 00 Yes Use as directed [facility] Insulin Syringe-Nee dle U-100 1 mL 31 gauge x 5/16 Syrg 2019-1 08-24 00:00: 00 Yes Use as directed [facility] Insulin Syringe-Nee dle U-100 1 mL 31 gauge x 5/16 Syrg 2019-08 00:00: 00 Yes Use as directed [facility] Insulin Syringe-Nee dle U-100 1 mL 31 gauge x 5/16 Syrg 2019-08 00:00: 00 Yes Use as directed [facility] Insulin Syringe-Nee dle U-100 1 mL 31 gauge x 5/16 Syrg 2019-08 00:00: 00 Yes Use as directed [facility] Insulin Syringe-Nee dle U-100 1 mL 31 gauge x 5/16 Syrg 2019-08 00:00: 00 Yes Use as directed [facility] Insulin Syringe-Nee dle U-100 1 mL 31 gauge x 5/16 Syrg 2019-08 00:00: 00 07-17 00:00 :00 No Use as directed [facility] Insulin Syringe-Nee dle U-100 1 mL 31 gauge x 5/16 Syrg 2019-08 00:00: 00 07-17 00:00 :00 No Use as directed [facility] Insulin Syringe-Nee dle U-100 1 mL 31 gauge x 5/16 Syrg 2019-08 00:00: 00 07-17 00:00 :00 No Use as directed [facility] Insulin Syringe-Nee dle U-100 1 mL 31 gauge x 5/16 Syrg 2019-08 00:00: 00 07-17 00:00 :00 No Use as directed [facility] Insulin Syringe-Nee dle U-100 1 mL 31 gauge x 5/16 Syrg 2019-08 00:00: 00 07-17 00:00 :00 No Use as directed [facility] Insulin Syringe-Nee dle U-100 1 mL 31 gauge x 5/16 Syrg 2019-08 00:00: 00 07-17 00:00 :00 No Use as directed [facility] hydrocortis one (ANUSOL-HC) 25 mg suppository 2019-08 0 00:00: 06-14 05:59 :00 No [id number] 25mg Insert 1 Suppositor y into rectum 2 (two) times daily for 10 days. [facility] escitalopra m oxalate (LEXAPRO) 5 mg tablet 2019-08 00:00: 12-31 00:00 :00 No [id number] 5mg Take 1 tablet by mouth daily. [facility] escitalopra m oxalate (LEXAPRO) 5 mg tablet 2019-08 00:00: 12-31 00:00 :00 No [id number] 5mg Take 1 tablet by mouth daily. [facility] escitalopra m oxalate (LEXAPRO) 5 mg tablet 2019-08 00:00: 12-31 00:00 :00 No [id number] 5mg Take 1 tablet by mouth daily. [facility] metformin ER 500 mg 24 hr tablet 2019-08:0010-13 00:00 :00 No [id number] TAKE 2 TABLETS BY MOUTH ONCE DAILY IN THE MORNING AND 3 ONCE DAILY IN THE EVENING. Needs follow up visit for further refills [facility] metformin ER 500 mg 24 hr tablet 2019-08 00:00: 10-13 00:00 :00 No [id number] TAKE 2 TABLETS BY MOUTH ONCE DAILY IN THE MORNING AND 3 ONCE DAILY IN THE EVENING. Needs follow up visit for further refills [facility] metformin ER 500 mg 24 hr tablet 2019-08:0010-13 00:00 :00 No [id number] TAKE 2 TABLETS BY MOUTH ONCE DAILY IN THE MORNING AND 3 ONCE DAILY IN THE EVENING. Needs follow up visit for further refills [facility] glyBURIDE 5 mg tablet 2019-08:00: 06-22 00:00 :00 No [id number] 5mg Take 1 tablet by mouth 2 (two) times daily with meals. Needs follow up visit for further refills [facility] insulin NPH (NOVOLIN N NPH U-100 INSULIN) 100 unit/mL injection 2019-08 00:06-22 00:00 :00 No [id number] USE 10 UNITS UNDER THE SUBCUTANEO USLY DAILY WITH BREAKFAST [facility] insulin regular human (NOVOLIN R REGULAR U-100 INSULN) 100 unit/mL injection 2019-08 00:00: 06-22 00:00 :00 No [id number] INJECT 10 UNITS SUBCUTANEO USLY WITH BREAKFAST [facility] hydrOXYzine 25 mg tablet 2019-08 00:00: 06-22 00:00 :00 No [id number] 25mg Take 1 tablet by mouth every 6 (six) hours. TAKE 1-2 TABS PO Q6 HOURS PRN FOR ANXIETY [facility] ondansetron 8 mg disintegrat ing tablet 05-09 00:00: 07-13 00:00 :00 No [id number] 8mg Take 1 tablet by mouth every 8 (eight) hours as needed for Nausea and Vomiting (N/V). [facility] hydrocortis one 2.5 % rectal cream 05-09 00:00: 07-13 00:00 :00 No [id number] Insert into rectum 2 (two) times daily. [facility] diphenoxyla te-atropine 2.5-0.025 mg tablet 05-09 00:00: 07-13 00:00 :00 No [id number] 1{tbl} Take 1 tablet by mouth every 6 (six) hours as needed (diarrhea) . [facility] ondansetron 8 mg disintegrat ing tablet 05-09 00:00: 07-13 00:00 :00 No [id number] 8mg Take 1 tablet by mouth every 8 (eight) hours as needed for Nausea and Vomiting (N/V). [facility] hydrocortis one 2.5 % rectal cream 05-09 00:00: 07-13 00:00 :00 No [id number] Insert into rectum 2 (two) times daily. [facility] diphenoxyla te-atropine 2.5-0.025 mg tablet 05-09 00:00: 07-13 00:00 :00 No [id number] 1{tbl} Take 1 tablet by mouth every 6 (six) hours as needed (diarrhea) . [facility] ondansetron 8 mg disintegrat ing tablet 05-09 00:00: 07-13 00:00 :00 No [id number] 8mg Take 1 tablet by mouth every 8 (eight) hours as needed for Nausea and Vomiting (N/V). [facility] hydrocortis one 2.5 % rectal cream 05-09 00:00: 07-13 00:00 :00 No [id number] Insert into rectum 2 (two) times daily. [facility] diphenoxyla te-atropine 2.5-0.025 mg tablet 05-09 00:00: 07-13 00:00 :00 No [id number] 1{tbl} Take 1 tablet by mouth every 6 (six) hours as needed (diarrhea) . [facility] sulindac 200 mg tablet 2 00:00: 07-13 00:00 :00 No [id number] 200mg Take 1 tablet by mouth 2 (two) times daily. [facility] sulindac 200 mg tablet 2-04 00:00: 07-13 00:00 :00 No [id number] 200mg Take 1 tablet by mouth 2 (two) times daily. [facility] sulindac 200 mg tablet 2-04 00:00: 07-13 00:00 :00 No [id number] 200mg Take 1 tablet by mouth 2 (two) times daily. [facility] bromphenira mine-pseudo ephedrine-D M (BROMFED DM) 2-30-10 mg/5 mL syrup 1-07 00:00: 07-13 00:00 :00 No [id number] 5mL Take 5 mL by mouth 4 (four) times daily as needed for Congestion /Allergies or Cold symptoms. [facility] bromphenira mine-pseudo ephedrine-D M (BROMFED DM) 2-30-10 mg/5 mL syrup 1-07 00:00: 07-13 00:00 :00 No [id number] 5mL Take 5 mL by mouth 4 (four) times daily as needed for Congestion /Allergies or Cold symptoms. [facility] bromphenira mine-pseudo ephedrine-D M (BROMFED DM) 2-30-10 mg/5 mL syrup 1-07 00:00: 07-13 00:00 :00 No [id number] 5mL Take 5 mL by mouth 4 (four) times daily as needed for Congestion /Allergies or Cold symptoms. [facility] diclofenac 50 mg tablet 08-14 00:00: 07-13 00:00 :00 No [id number] 50mg Take 1 tablet by mouth 3 (three) times daily. [facility] diclofenac 50 mg tablet 08-14 00:00: 07-13 00:00 :00 No [id number] 50mg Take 1 tablet by mouth 3 (three) times daily. [facility] diclofenac 50 mg tablet 08-14 00:00: 07-13 00:00 :00 No [id number] 50mg Take 1 tablet by mouth 3 (three) times daily. [facility] proMETHazin e 25 mg tablet 2018-08 00:00: 07-13 00:00 :00 No [id number] 25mg Take 1 tablet by mouth every 6 (six) hours as needed for Nausea and Vomiting (N/V). [facility] proMETHazin e 25 mg tablet 2018-08 2 00:00: 07-13 00:00 :00 No [id number] 25mg Take 1 tablet by mouth every 6 (six) hours as needed for Nausea and Vomiting (N/V). [facility] proMETHazin e 25 mg tablet 2018-08 2 00:00: 07-13 00:00 :00 No [id number] 25mg Take 1 tablet by mouth every 6 (six) hours as needed for Nausea and Vomiting (N/V). [facility] albuterol 90 mcg/actuati on inhaler 2017-08 00:00: 07-13 00:00 :00 No 2{puff} Inhale 2 Puffs every 4 (four) hours as needed for Wheezing or Shortness of Breath. [facility] fluticasone 50 mcg/actuati on nasal spray 2017-08 00:00: 07-13 00:00 :00 No 1{spray } Use 1 [place] in each nostril daily. [facility] ibuprofen 800 mg tablet 2017-08 00:00: 07-13 00:00 :00 No 800mg Take 1 tablet by mouth every 6 (six) hours as needed for Pain (scale 4-6). [facility] albuterol 90 mcg/actuati on inhaler 2017-08 00:00: 07-13 00:00 :00 No 2{puff} Inhale 2 Puffs every 4 (four) hours as needed for Wheezing or Shortness of Breath. [facility] fluticasone 50 mcg/actuati on nasal spray 2017-08 00:00: 07-13 00:00 :00 No 1{spray } Use 1 [place] in each nostril daily. [facility] ibuprofen 800 mg tablet 2017-08 00:00: 07-13 00:00 :00 No 800mg Take 1 tablet by mouth every 6 (six) hours as needed for Pain (scale 4-6). [facility] albuterol 90 mcg/actuati on inhaler 2017-08 00:00: 07-13 00:00 :00 No 2{puff} Inhale 2 Puffs every 4 (four) hours as needed for Wheezing or Shortness of Breath. [facility] fluticasone 50 mcg/actuati on nasal spray 2017-08 00:00: 07-13 00:00 :00 No 1{spray } Use 1 [place] in each nostril daily. [facility] ibuprofen 800 mg tablet 2017-08 00:00: 07-13 00:00 :00 No 800mg Take 1 tablet by mouth every 6 (six) hours as needed for Pain (scale 4-6). [facility] Breast Pump Lisa 04-13 00:00: 00 07-13 00:00 :00 No Use as directed [facility] Breast Pump Lisa 04-13 00:00: 00 07-13 00:00 :00 No Use as directed [facility] Breast Pump Lisa 04-13 00:00: 00 07-13 00:00 :00 No Use as directed [facility] blood sugar diagnostic (ONETOUCH ULTRA TEST) strip 04-03 00:00: 00 07-13 00:00 :00 No Please, dispense test strips for checking FS x8 times per day [facility] blood sugar diagnostic (ONETOUCH ULTRA TEST) strip 04-03 00:00: 00 07-13 00:00 :00 No Please, dispense test strips for checking FS x8 times per day [facility] blood sugar diagnostic (ONETOUCH ULTRA TEST) strip 04-03 00:00: 00 07-13 00:00 :00 No Please, dispense test strips for checking FS x8 times per day [facility] Blood Pressure Monitor (BLOOD PRESSURE KIT) Kit 03-27 00:00: 00 07-13 00:00 :00 No [id number] Use as directed [facility] Blood Pressure Monitor (BLOOD PRESSURE KIT) Kit 03-27 00:00: 00 07-13 00:00 :00 No [id number] Use as directed [facility] Blood Pressure Monitor (BLOOD PRESSURE KIT) Kit 03-27 00:00: 00 07-13 00:00 :00 No [id number] Use as directed [facility] Lancets (ONETOUCH ULTRASOFT LANCETS) [facility] 01-11 00:00: 00 07-13 00:00 :00 No Use as directed [facility] Lancets (ONETOUCH ULTRASOFT LANCETS) [facility] 01-11 00:00: 00 07-13 00:00 :00 No Use as directed [facility] Lancets (ONETOUCH ULTRASOFT LANCETS) [facility] 2016-0 01-11 00:00: 00 07-13 00:00 :00 No Use as directed [facility] Immunizations Ordered Immunization Name Filled Immunization Name Date Status Comments Source Influenza Virus Vaccine 2022-05-29 00:00:00 Completed [facility] Influenza Virus Vaccine Quad .5 mL IM 6+ MO 2022-05-29 00:00:00 Completed [facility] Influenza Virus Vaccine 2022-05-29 00:00:00 Completed [facility] Influenza Virus Vaccine Quad .5 mL IM 6+ MO 2022-05-29 00:00:00 Completed [facility] Influenza Virus Vaccine 2022-05-29 00:00:00 Completed [facility] Influenza Virus Vaccine Quad .5 mL IM 6+ MO 2022-05-29 00:00:00 Completed [facility] Influenza Virus Vaccine 2022-05-29 00:00:00 Completed [facility] Influenza Virus Vaccine Quad .5 mL IM 6+ MO 2022-05-29 00:00:00 Completed [facility] Influenza Virus Vaccine 2022-05-29 00:00:00 Completed [facility] Influenza Virus Vaccine Quad .5 mL IM 6+ MO 2022-05-29 00:00:00 Completed [facility] Influenza Virus Vaccine 2022-05-29 00:00:00 Completed [facility] Influenza Virus Vaccine Quad .5 mL IM 6+ MO 2022-05-29 00:00:00 Completed [facility] Influenza Virus Vaccine 2022-05-29 00:00:00 Completed [facility] Influenza Virus Vaccine Quad .5 mL IM 6+ MO 2022-05-29 00:00:00 Completed [facility] Influenza Virus Vaccine 2022-05-29 00:00:00 Completed [facility] Influenza Virus Vaccine Quad .5 mL IM 6+ MO 2022-05-29 00:00:00 [facility] [facility] Influenza Virus Vaccine 2022-05-29 00:00:00 Completed [facility] Influenza Virus Vaccine Quad .5 mL IM 6+ MO 2022-05-29 00:00:00 Completed [facility] Influenza Virus Vaccine 2022-05-29 00:00:00 Completed [facility] Influenza Virus Vaccine Quad .5 mL IM 6+ MO 2022-05-29 00:00:00 Completed [facility] Influenza Virus Vaccine 2022-05-29 00:00:00 Completed [facility] Influenza Virus Vaccine Quad .5 mL IM 6+ MO 2022-05-29 00:00:00 Completed [facility] Influenza Virus Vaccine 2022-05-29 00:00:00 Completed [facility] Influenza Virus Vaccine Quad .5 mL IM 6+ MO 2022-05-29 00:00:00 Completed [facility] Influenza Virus Vaccine 2022-05-29 00:00:00 Completed [facility] Influenza Virus Vaccine Quad .5 mL IM 6+ MO 2022-05-29 00:00:00 Completed [facility] Influenza Virus Vaccine 2022-05-29 00:00:00 Completed [facility] Influenza Virus Vaccine Quad .5 mL IM 6+ MO 2022-05-29 00:00:00 Completed [facility] Influenza Virus Vaccine 2022-05-29 00:00:00 Completed [facility] Influenza Virus Vaccine Quad .5 mL IM 6+ MO 2022-05-29 00:00:00 Completed [facility] Influenza Virus Vaccine 2022-05-29 00:00:00 Completed [facility] Influenza Virus Vaccine Quad .5 mL IM 6+ MO 2022-05-29 00:00:00 Completed [facility] Influenza Virus Vaccine 2022-05-29 00:00:00 Completed [facility] Influenza Virus Vaccine Quad .5 mL IM 6+ MO 2022-05-29 00:00:00 Completed [facility] Influenza Virus Vaccine 2022-05-29 00:00:00 Completed [facility] Influenza Virus Vaccine Quad .5 mL IM 6+ MO 2022-05-29 00:00:00 Completed [facility] Influenza Virus Vaccine 2022-05-29 00:00:00 Completed [facility] Influenza Virus Vaccine Quad .5 mL IM 6+ MO 2022-05-29 00:00:00 Completed [facility] Influenza Virus Vaccine 2022-05-29 00:00:00 Completed [facility] Influenza Virus Vaccine Quad .5 mL IM 6+ MO 2022-05-29 00:00:00 Completed [facility] Influenza Virus Vaccine 2022-05-29 00:00:00 Completed [facility] Influenza Virus Vaccine Quad .5 mL IM 6+ MO 2022-05-29 00:00:00 Completed [facility] Influenza Virus Vaccine 2022-05-29 00:00:00 Completed [facility] Influenza Virus Vaccine Quad .5 mL IM 6+ MO 2022-05-29 00:00:00 Completed [facility] Influenza Virus Vaccine 2022-05-29 00:00:00 Completed [facility] Influenza Virus Vaccine Quad .5 mL IM 6+ MO 2022-05-29 00:00:00 Completed [facility] Influenza Virus Vaccine 2022-05-29 00:00:00 Completed [facility] Influenza Virus Vaccine Quad .5 mL IM 6+ MO 2022-05-29 00:00:00 Completed [facility] Influenza Virus Vaccine 2022-05-29 00:00:00 Completed [facility] Influenza Virus Vaccine Quad .5 mL IM 6+ MO 2022-05-29 00:00:00 Completed [facility] Influenza Virus Vaccine 2022-05-29 00:00:00 Completed [facility] Influenza Virus Vaccine Quad .5 mL IM 6+ MO 2022-05-29 00:00:00 Completed [facility] Influenza Virus Vaccine 2022-05-29 00:00:00 Completed [facility] Influenza Virus Vaccine Quad .5 mL IM 6+ MO 2022-05-29 00:00:00 Completed [facility] Influenza Virus Vaccine 2022-05-29 00:00:00 Completed [facility] Influenza Virus Vaccine Quad .5 mL IM 6+ MO 2022-05-29 00:00:00 Completed [facility] Influenza Virus Vaccine 2022-05-29 00:00:00 Completed [facility] Influenza Virus Vaccine Quad .5 mL IM 6+ MO 2022-05-29 00:00:00 Completed [facility] Influenza Virus Vaccine 2022-05-29 00:00:00 Completed [facility] Influenza Virus Vaccine Quad .5 mL IM 6+ MO 2022-05-29 00:00:00 Completed [facility] Influenza Virus Vaccine 2022-05-29 00:00:00 Completed [facility] Influenza Virus Vaccine Quad .5 mL IM 6+ MO 2022-05-29 00:00:00 Completed [facility] Influenza Virus Vaccine 2022-05-29 00:00:00 Completed [facility] Influenza Virus Vaccine Quad .5 mL IM 6+ MO 2022-05-29 00:00:00 Completed [facility] Influenza Virus Vaccine 2022-05-29 00:00:00 Completed [facility] Influenza Virus Vaccine Quad .5 mL IM 6+ MO 2022-05-29 00:00:00 Completed [facility] Influenza Virus Vaccine 2022-05-29 00:00:00 Completed [facility] Influenza Virus Vaccine Quad .5 mL IM 6+ MO 2022-05-29 00:00:00 Completed [facility] Influenza Virus Vaccine 2022-05-29 00:00:00 Completed [facility] Influenza Virus Vaccine Quad .5 mL IM 6+ MO 2022-05-29 00:00:00 Completed [facility] Influenza Virus Vaccine 2022-05-29 00:00:00 Completed [facility] Influenza Virus Vaccine Quad .5 mL IM 6+ MO 2022-05-29 00:00:00 Completed [facility] Influenza Virus Vaccine 2022-05-29 00:00:00 Completed [facility] Influenza Virus Vaccine Quad .5 mL IM 6+ MO 2022-05-29 00:00:00 Completed [facility] Influenza Virus Vaccine 2022-05-29 00:00:00 Completed [facility] Influenza Virus Vaccine Quad .5 mL IM 6+ MO 2022-05-29 00:00:00 Completed [facility] Influenza Virus Vaccine 2022-05-29 00:00:00 Completed [facility] Influenza Virus Vaccine Quad .5 mL IM 6+ MO 2022-05-29 00:00:00 Completed [facility] Influenza Virus Vaccine 2022-05-29 00:00:00 Completed [facility] Influenza Virus Vaccine Quad .5 mL IM 6+ MO 2022-05-29 00:00:00 Completed [facility] Influenza Virus Vaccine 2022-05-29 00:00:00 Completed [facility] Influenza Virus Vaccine Quad .5 mL IM 6+ MO 2022-05-29 00:00:00 Completed [facility] Influenza Virus Vaccine 2022-05-29 00:00:00 Completed [facility] Influenza Virus Vaccine Quad .5 mL IM 6+ MO 2022-05-29 00:00:00 Completed [facility] Influenza Virus Vaccine 2022-05-29 00:00:00 Completed [facility] Influenza Virus Vaccine Quad .5 mL IM 6+ MO 2022-05-29 00:00:00 Completed [facility] Influenza Virus Vaccine 2022-05-29 00:00:00 Completed [facility] Influenza Virus Vaccine Quad .5 mL IM 6+ MO 2022-05-29 00:00:00 Completed [facility] Influenza Virus Vaccine 2022-05-29 00:00:00 Completed [facility] Influenza Virus Vaccine Quad .5 mL IM 6+ MO 2022-05-29 00:00:00 Completed [facility] Influenza Virus Vaccine 2022-05-29 00:00:00 Completed [facility] Influenza Virus Vaccine Quad .5 mL IM 6+ MO 2022-05-29 00:00:00 Completed [facility] Influenza Virus Vaccine 2022-05-29 00:00:00 Completed [facility] Influenza Virus Vaccine Quad .5 mL IM 6+ MO 2022-05-29 00:00:00 Completed [facility] Influenza Virus Vaccine 2022-05-29 00:00:00 Completed [facility] Influenza Virus Vaccine Quad .5 mL IM 6+ MO 2022-05-29 00:00:00 Completed [facility] Influenza Virus Vaccine 2022-05-29 00:00:00 Completed [facility] Influenza Virus Vaccine Quad .5 mL IM 6+ MO 2022-05-29 00:00:00 Completed [facility] Influenza Virus Vaccine 2022-05-29 00:00:00 Completed [facility] Influenza Virus Vaccine Quad .5 mL IM 6+ MO 2022-05-29 00:00:00 Completed [facility] Influenza Virus Vaccine 2022-05-29 00:00:00 Completed [facility] Influenza Virus Vaccine Quad .5 mL IM 6+ MO 2022-05-29 00:00:00 Completed [facility] Influenza Virus Vaccine 2022-05-29 00:00:00 Completed [facility] Influenza Virus Vaccine Quad .5 mL IM 6+ MO 2022-05-29 00:00:00 Completed [facility] Influenza Virus Vaccine 2022-05-29 00:00:00 Completed [facility] Influenza Virus Vaccine Quad .5 mL IM 6+ MO 2022-05-29 00:00:00 Completed [facility] Influenza Virus Vaccine 2022-05-29 00:00:00 Completed [facility] Influenza Virus Vaccine Quad .5 mL IM 6+ MO 2022-05-29 00:00:00 Completed [facility] Influenza Virus Vaccine 2022-05-29 00:00:00 Completed [facility] Influenza Virus Vaccine Quad .5 mL IM 6+ MO 2022-05-29 00:00:00 Completed [facility] Influenza Virus Vaccine 2022-05-29 00:00:00 Completed [facility] Influenza Virus Vaccine Quad .5 mL IM 6+ MO 2022-05-29 00:00:00 Completed [facility] Influenza Virus Vaccine 2022-05-29 00:00:00 Completed [facility] Influenza Virus Vaccine Quad .5 mL IM 6+ MO 2022-05-29 00:00:00 Completed [facility] Influenza Virus Vaccine 2022-05-29 00:00:00 Completed [facility] Influenza Virus Vaccine Quad .5 mL IM 6+ MO 2022-05-29 00:00:00 Completed [facility] Influenza Virus Vaccine 2022-05-29 00:00:00 Completed [facility] Influenza Virus Vaccine Quad .5 mL IM 6+ MO 2022-05-29 00:00:00 Completed [facility] Influenza Virus Vaccine 2022-05-29 00:00:00 Completed [facility] Influenza Virus Vaccine Quad .5 mL IM 6+ MO 2022-05-29 00:00:00 Completed [facility] Influenza Virus Vaccine 2022-05-29 00:00:00 Completed [facility] Influenza Virus Vaccine Quad .5 mL IM 6+ MO 2022-05-29 00:00:00 Completed [facility] Influenza Virus Vaccine 2022-05-29 00:00:00 Completed [facility] Influenza Virus Vaccine Quad .5 mL IM 6+ MO 2022-05-29 00:00:00 Completed [facility] Influenza Virus Vaccine 2022-05-29 00:00:00 Completed [facility] Influenza Virus Vaccine Quad .5 mL IM 6+ MO 2022-05-29 00:00:00 Completed [facility] Influenza Virus Vaccine 2022-05-29 00:00:00 Completed [facility] Influenza Virus Vaccine Quad .5 mL IM 6+ MO 2022-05-29 00:00:00 Completed [facility] Influenza Virus Vaccine 2022-05-29 00:00:00 Completed [facility] Influenza Virus Vaccine Quad .5 mL IM 6+ MO 2022-05-29 00:00:00 Completed [facility] Influenza Virus Vaccine 2022-05-29 00:00:00 Completed [facility] Influenza Virus Vaccine Quad .5 mL IM 6+ MO 2022-05-29 00:00:00 Completed [facility] Influenza Virus Vaccine 2022-05-29 00:00:00 Completed [facility] Influenza Virus Vaccine Quad .5 mL IM 6+ MO 2022-05-29 00:00:00 Completed [facility] Influenza Virus Vaccine 2022-05-29 00:00:00 Completed [facility] Influenza Virus Vaccine Quad .5 mL IM 6+ MO 2022-05-29 00:00:00 Completed [facility] Influenza Virus Vaccine 2022-05-29 00:00:00 Completed [facility] Influenza Virus Vaccine Quad .5 mL IM 6+ MO 2022-05-29 00:00:00 Completed [facility] Influenza Virus Vaccine 2022-05-29 00:00:00 Completed [facility] Influenza Virus Vaccine Quad .5 mL IM 6+ MO 2022-05-29 00:00:00 Completed [facility] Influenza Virus Vaccine 2022-05-29 00:00:00 Completed [facility] Influenza Virus Vaccine Quad .5 mL IM 6+ MO 2022-05-29 00:00:00 Completed [facility] Influenza Virus Vaccine 2022-05-29 00:00:00 Completed [facility] Influenza Virus Vaccine Quad .5 mL IM 6+ MO 2022-05-29 00:00:00 Completed [facility] Influenza Virus Vaccine 2022-05-29 00:00:00 Completed [facility] Influenza Virus Vaccine Quad .5 mL IM 6+ MO 2022-05-29 00:00:00 Completed [facility] Influenza Virus Vaccine 2022-05-29 00:00:00 Completed [facility] Influenza Virus Vaccine Quad .5 mL IM 6+ MO 2022-05-29 00:00:00 Completed [facility] Influenza Virus Vaccine 2022-05-29 00:00:00 Completed [facility] Influenza Virus Vaccine Quad .5 mL IM 6+ MO 2022-05-29 00:00:00 Completed [facility] Influenza Virus Vaccine 2022-05-29 00:00:00 Completed [facility] Influenza Virus Vaccine Quad .5 mL IM 6+ MO 2022-05-29 00:00:00 Completed [facility] Influenza Virus Vaccine 2022-05-29 00:00:00 Completed [facility] Influenza Virus Vaccine Quad .5 mL IM 6+ MO 2022-05-29 00:00:00 Completed [facility] Influenza Virus Vaccine 2022-05-29 00:00:00 Completed [facility] Influenza Virus Vaccine Quad .5 mL IM 6+ MO 2022-05-29 00:00:00 Completed [facility] Influenza Virus Vaccine 2022-05-29 00:00:00 Completed [facility] Influenza Virus Vaccine Quad .5 mL IM 6+ MO 2022-05-29 00:00:00 Completed [facility] Influenza Virus Vaccine 2022-05-29 00:00:00 Completed [facility] Influenza Virus Vaccine Quad .5 mL IM 6+ MO 2022-05-29 00:00:00 Completed [facility] Influenza Virus Vaccine 2022-05-29 00:00:00 Completed [facility] Influenza Virus Vaccine Quad .5 mL IM 6+ MO 2022-05-29 00:00:00 Completed [facility] Influenza Virus Vaccine 2022-05-29 00:00:00 Completed [facility] Influenza Virus Vaccine Quad .5 mL IM 6+ MO 2022-05-29 00:00:00 Completed [facility] Influenza Virus Vaccine 2022-05-29 00:00:00 Completed [facility] Influenza Virus Vaccine Quad .5 mL IM 6+ MO 2022-05-29 00:00:00 Completed [facility] Influenza Virus Vaccine 2022-05-29 00:00:00 Completed [facility] Influenza Virus Vaccine Quad .5 mL IM 6+ MO 2022-05-29 00:00:00 Completed [facility] Influenza Virus Vaccine 2022-05-29 00:00:00 Completed [facility] Influenza Virus Vaccine Quad .5 mL IM 6+ MO 2022-05-29 00:00:00 Completed [facility] Influenza Virus Vaccine 2022-05-29 00:00:00 Completed [facility] Influenza Virus Vaccine Quad .5 mL IM 6+ MO 2022-05-29 00:00:00 Completed [facility] Influenza Virus Vaccine 2022-05-29 00:00:00 Completed [facility] Influenza Virus Vaccine Quad .5 mL IM 6+ MO 2022-05-29 00:00:00 Completed [facility] Influenza Virus Vaccine 2022-05-29 00:00:00 Completed [facility] Influenza Virus Vaccine Quad .5 mL IM 6+ MO 2022-05-29 00:00:00 Completed [facility] Influenza Virus Vaccine 2022-05-29 00:00:00 Completed [facility] Influenza Virus Vaccine Quad .5 mL IM 6+ MO 2022-05-29 00:00:00 Completed [facility] Influenza Virus Vaccine 2022-05-29 00:00:00 Completed [facility] Influenza Virus Vaccine Quad .5 mL IM 6+ MO 2022-05-29 00:00:00 Completed [facility] Influenza Virus Vaccine 2022-05-29 00:00:00 Completed [facility] Influenza Virus Vaccine Quad .5 mL IM 6+ MO 2022-05-29 00:00:00 Completed [facility] Influenza Virus Vaccine 2022-05-29 00:00:00 Completed [facility] Influenza Virus Vaccine Quad .5 mL IM 6+ MO 2022-05-29 00:00:00 Completed [facility] Influenza Virus Vaccine 2022-05-29 00:00:00 Completed [facility] Influenza Virus Vaccine Quad .5 mL IM 6+ MO 2022-05-29 00:00:00 Completed [facility] Influenza Virus Vaccine 2022-05-29 00:00:00 Completed [facility] Influenza Virus Vaccine Quad .5 mL IM 6+ MO 2022-05-29 00:00:00 Completed [facility] Influenza Virus Vaccine 2022-05-29 00:00:00 Completed [facility] Influenza Virus Vaccine Quad .5 mL IM 6+ MO 2022-05-29 00:00:00 Completed [facility] Influenza Virus Vaccine 2022-05-29 00:00:00 Completed [facility] Influenza Virus Vaccine Quad .5 mL IM 6+ MO 2022-05-29 00:00:00 Completed [facility] Influenza Virus Vaccine 2022-05-29 00:00:00 Completed [facility] Influenza Virus Vaccine Quad .5 mL IM 6+ MO 2022-05-29 00:00:00 Completed [facility] Influenza Virus Vaccine 2022-05-29 00:00:00 Completed [facility] Influenza Virus Vaccine Quad .5 mL IM 6+ MO 2022-05-29 00:00:00 Completed [facility] Influenza Virus Vaccine 2022-05-29 00:00:00 Completed [facility] Influenza Virus Vaccine Quad .5 mL IM 6+ MO 2022-05-29 00:00:00 Completed [facility] Influenza Virus Vaccine 2022-05-29 00:00:00 Completed [facility] Influenza Virus Vaccine Quad .5 mL IM 6+ MO 2022-05-29 00:00:00 Completed [facility] Influenza Virus Vaccine 2022-05-29 00:00:00 Completed [facility] Influenza Virus Vaccine Quad .5 mL IM 6+ MO 2022-05-29 00:00:00 Completed [facility] Influenza Virus Vaccine 2022-05-29 00:00:00 Completed [facility] Influenza Virus Vaccine Quad .5 mL IM 6+ MO 2022-05-29 00:00:00 Completed [facility] Influenza Virus Vaccine 2022-05-29 00:00:00 Completed [facility] Influenza Virus Vaccine Quad .5 mL IM 6+ MO 2022-05-29 00:00:00 Completed [facility] Influenza Virus Vaccine 2022-05-29 00:00:00 Completed [facility] Influenza Virus Vaccine Quad .5 mL IM 6+ MO 2022-05-29 00:00:00 Completed [facility] Influenza Virus Vaccine 2022-05-29 00:00:00 Completed [facility] Influenza Virus Vaccine Quad .5 mL IM 6+ MO 2022-05-29 00:00:00 Completed [facility] Influenza Virus Vaccine 2022-05-29 00:00:00 Completed [facility] Influenza Virus Vaccine Quad .5 mL IM 6+ MO 2022-05-29 00:00:00 Completed [facility] Influenza Virus Vaccine 2022-05-29 00:00:00 Completed [facility] Influenza Virus Vaccine Quad .5 mL IM 6+ MO 2022-05-29 00:00:00 Completed [facility] Influenza Virus Vaccine 2022-05-29 00:00:00 Completed [facility] Influenza Virus Vaccine Quad .5 mL IM 6+ MO 2022-05-29 00:00:00 Completed [facility] Influenza Virus Vaccine 2022-05-29 00:00:00 Completed [facility] Influenza Virus Vaccine Quad .5 mL IM 6+ MO 2022-05-29 00:00:00 Completed [facility] Influenza Virus Vaccine 2022-05-29 00:00:00 Completed [facility] Influenza Virus Vaccine Quad .5 mL IM 6+ MO 2022-05-29 00:00:00 Completed [facility] Influenza Virus Vaccine 2022-05-29 00:00:00 Completed [facility] Influenza Virus Vaccine Quad .5 mL IM 6+ MO 2022-05-29 00:00:00 Completed [facility] Influenza Virus Vaccine 2022-05-29 00:00:00 Completed [facility] Influenza Virus Vaccine Quad .5 mL IM 6+ MO 2022-05-29 00:00:00 Completed [facility] Influenza Virus Vaccine 2022-05-29 00:00:00 Completed [facility] Influenza Virus Vaccine Quad .5 mL IM 6+ MO 2022-05-29 00:00:00 Completed [facility] Influenza Virus Vaccine 2022-05-29 00:00:00 Completed [facility] Influenza Virus Vaccine Quad .5 mL IM 6+ MO 2022-05-29 00:00:00 Completed [facility] Influenza Virus Vaccine 2022-05-29 00:00:00 Completed [facility] Influenza Virus Vaccine Quad .5 mL IM 6+ MO 2022-05-29 00:00:00 Completed [facility] Influenza Virus Vaccine 2022-05-29 00:00:00 Completed [facility] Influenza Virus Vaccine Quad .5 mL IM 6+ MO 2022-05-29 00:00:00 Completed [facility] Influenza Virus Vaccine 2022-05-29 00:00:00 Completed [facility] Influenza Virus Vaccine Quad .5 mL IM 6+ MO 2022-05-29 00:00:00 Completed [facility] Influenza Virus Vaccine 2022-05-29 00:00:00 Completed [facility] Influenza Virus Vaccine Quad .5 mL IM 6+ MO 2022-05-29 00:00:00 Completed [facility] Influenza Virus Vaccine 2022-05-29 00:00:00 Completed [facility] Influenza Virus Vaccine Quad .5 mL IM 6+ MO 2022-05-29 00:00:00 Completed [facility] Influenza Virus Vaccine 2022-05-29 00:00:00 Completed [facility] Influenza Virus Vaccine Quad .5 mL IM 6+ MO 2022-05-29 00:00:00 Completed [facility] Influenza Virus Vaccine 2022-05-29 00:00:00 Completed [facility] Influenza Virus Vaccine Quad .5 mL IM 6+ MO 2022-05-29 00:00:00 Completed [facility] Influenza Virus Vaccine 2022-05-29 00:00:00 Completed [facility] Influenza Virus Vaccine Quad .5 mL IM 6+ MO 2022-05-29 00:00:00 Completed [facility] Influenza Virus Vaccine 2022-05-29 00:00:00 Completed [facility] Influenza Virus Vaccine Quad .5 mL IM 6+ MO 2022-05-29 00:00:00 Completed [facility] Influenza Virus Vaccine 2022-05-29 00:00:00 Completed [facility] Influenza Virus Vaccine Quad .5 mL IM 6+ MO 2022-05-29 00:00:00 Completed [facility] Influenza Virus Vaccine 2022-05-29 00:00:00 Completed [facility] Influenza Virus Vaccine Quad .5 mL IM 6+ MO 2022-05-29 00:00:00 Completed [facility] Influenza Virus Vaccine 2022-05-29 00:00:00 Completed [facility] Influenza Virus Vaccine Quad .5 mL IM 6+ MO 2022-05-29 00:00:00 Completed [facility] Influenza Virus Vaccine 2022-05-29 00:00:00 Completed [facility] Influenza Virus Vaccine Quad .5 mL IM 6+ MO 2022-05-29 00:00:00 Completed [facility] Influenza Virus Vaccine 2022-05-29 00:00:00 Completed [facility] Influenza Virus Vaccine Quad .5 mL IM 6+ MO 2022-05-29 00:00:00 Completed [facility] Influenza Virus Vaccine 2022-05-29 00:00:00 Completed [facility] Influenza Virus Vaccine Quad .5 mL IM 6+ MO (FLUZONE/FLULAVAL/F LUARIX) 2022-05-29 00:00:00 Completed [facility] Influenza Virus Vaccine 2022-05-29 00:00:00 Completed [facility] Influenza Virus Vaccine Quad .5 mL IM 6+ MO (FLUZONE/FLULAVAL/F LUARIX) 2022-05-29 00:00:00 Completed [facility] Influenza Virus Vaccine 2022-05-29 00:00:00 Completed [facility] Influenza Virus Vaccine Quad .5 mL IM 6+ MO (FLUZONE/FLULAVAL/F LUARIX) 2022-05-29 00:00:00 Completed [facility] Influenza Virus Vaccine Quad .5 mL IM 6+ MO 2021-07-01 00:00:00 Completed [facility] Influenza Virus Vaccine Quad .5 mL IM 6+ MO 2021-07-01 00:00:00 Completed [facility] Influenza Virus Vaccine Quad .5 mL IM 6+ MO 2021-07-01 00:00:00 Completed [facility] Influenza Virus Vaccine Quad .5 mL IM 6+ MO 2021-07-01 00:00:00 Completed [facility] Influenza Virus Vaccine Quad .5 mL IM 6+ MO 2021-07-01 00:00:00 Completed [facility] Influenza Virus Vaccine Quad .5 mL IM 6+ MO 2021-07-01 00:00:00 Completed [facility] Influenza Virus Vaccine Quad .5 mL IM 6+ MO 2021-07-01 00:00:00 Completed [facility] Influenza Virus Vaccine Quad .5 mL IM 6+ MO 2021-07-01 00:00:00 Completed [facility] Influenza Virus Vaccine Quad .5 mL IM 6+ MO 2021-07-01 00:00:00 Completed [facility] Influenza Virus Vaccine Quad .5 mL IM 6+ MO 2021-07-01 00:00:00 Completed [facility] Influenza Virus Vaccine Quad .5 mL IM 6+ MO 2021-07-01 00:00:00 Completed [facility] Influenza Virus Vaccine Quad .5 mL IM 6+ MO 2021-07-01 00:00:00 Completed [facility] Influenza Virus Vaccine Quad .5 mL IM 6+ MO 2021-07-01 00:00:00 Completed [facility] Influenza Virus Vaccine Quad .5 mL IM 6+ MO 2021-07-01 00:00:00 Completed [facility] Influenza Virus Vaccine Quad .5 mL IM 6+ MO 2021-07-01 00:00:00 Completed [facility] Influenza Virus Vaccine Quad .5 mL IM 6+ MO 2021-07-01 00:00:00 Completed [facility] Influenza Virus Vaccine Quad .5 mL IM 6+ MO 2021-07-01 00:00:00 Completed [facility] Influenza Virus Vaccine Quad .5 mL IM 6+ MO 2021-07-01 00:00:00 Completed [facility] Influenza Virus Vaccine Quad .5 mL IM 6+ MO 2021-07-01 00:00:00 Completed [facility] Influenza Virus Vaccine Quad .5 mL IM 6+ MO 2021-07-01 00:00:00 Completed [facility] Influenza Virus Vaccine Quad .5 mL IM 6+ MO 2021-07-01 00:00:00 Completed [facility] Influenza Virus Vaccine Quad .5 mL IM 6+ MO 2021-07-01 00:00:00 Completed [facility] Influenza Virus Vaccine Quad .5 mL IM 6+ MO 2021-07-01 00:00:00 Completed [facility] Influenza Virus Vaccine Quad .5 mL IM 6+ MO 2021-07-01 00:00:00 Completed [facility] Influenza Virus Vaccine Quad .5 mL IM 6+ MO 2021-07-01 00:00:00 Completed [facility] Influenza Virus Vaccine Quad .5 mL IM 6+ MO 2021-07-01 00:00:00 Completed [facility] Influenza Virus Vaccine Quad .5 mL IM 6+ MO 2021-07-01 00:00:00 Completed [facility] Influenza Virus Vaccine Quad .5 mL IM 6+ MO 2021-07-01 00:00:00 Completed [facility] Influenza Virus Vaccine Quad .5 mL IM 6+ MO 2021-07-01 00:00:00 Completed [facility] Influenza Virus Vaccine Quad .5 mL IM 6+ MO 2021-07-01 00:00:00 Completed [facility] Influenza Virus Vaccine Quad .5 mL IM 6+ MO 2021-07-01 00:00:00 Completed [facility] Influenza Virus Vaccine Quad .5 mL IM 6+ MO 2021-07-01 00:00:00 Completed [facility] Influenza Virus Vaccine Quad .5 mL IM 6+ MO 2021-07-01 00:00:00 Completed [facility] Influenza Virus Vaccine Quad .5 mL IM 6+ MO 2021-07-01 00:00:00 Completed [facility] Influenza Virus Vaccine Quad .5 mL IM 6+ MO 2021-07-01 00:00:00 Completed [facility] Influenza Virus Vaccine Quad .5 mL IM 6+ MO 2021-07-01 00:00:00 Completed [facility] Influenza Virus Vaccine Quad .5 mL IM 6+ MO 2021-07-01 00:00:00 Completed [facility] Influenza Virus Vaccine Quad .5 mL IM 6+ MO 2021-07-01 00:00:00 Completed [facility] Influenza Virus Vaccine Quad .5 mL IM 6+ MO 2021-07-01 00:00:00 Completed [facility] Influenza Virus Vaccine Quad .5 mL IM 6+ MO 2021-07-01 00:00:00 Completed [facility] Influenza Virus Vaccine Quad .5 mL IM 6+ MO 2021-07-01 00:00:00 Completed [facility] Influenza Virus Vaccine Quad .5 mL IM 6+ MO 2021-07-01 00:00:00 Completed [facility] Influenza Virus Vaccine Quad .5 mL IM 6+ MO 2021-07-01 00:00:00 Completed [facility] Influenza Virus Vaccine Quad .5 mL IM 6+ MO 2021-07-01 00:00:00 Completed [facility] Influenza Virus Vaccine Quad .5 mL IM 6+ MO 2021-07-01 00:00:00 Completed [facility] Influenza Virus Vaccine Quad .5 mL IM 6+ MO 2021-07-01 00:00:00 Completed [facility] Influenza Virus Vaccine Quad .5 mL IM 6+ MO 2021-07-01 00:00:00 Completed [facility] Influenza Virus Vaccine Quad .5 mL IM 6+ MO 2021-07-01 00:00:00 Completed [facility] Influenza Virus Vaccine Quad .5 mL IM 6+ MO 2021-07-01 00:00:00 Completed [facility] Influenza Virus Vaccine Quad .5 mL IM 6+ MO 2021-07-01 00:00:00 Completed [facility] Influenza Virus Vaccine Quad .5 mL IM 6+ MO 2021-07-01 00:00:00 Completed [facility] Influenza Virus Vaccine Quad .5 mL IM 6+ MO 2021-07-01 00:00:00 Completed [facility] Influenza Virus Vaccine Quad .5 mL IM 6+ MO 2021-07-01 00:00:00 Completed [facility] Influenza Virus Vaccine Quad .5 mL IM 6+ MO 2021-07-01 00:00:00 Completed [facility] Influenza Virus Vaccine Quad .5 mL IM 6+ MO 2021-07-01 00:00:00 Completed [facility] Influenza Virus Vaccine Quad .5 mL IM 6+ MO 2021-07-01 00:00:00 Completed [facility] Influenza Virus Vaccine Quad .5 mL IM 6+ MO 2021-07-01 00:00:00 Completed [facility] Influenza Virus Vaccine Quad .5 mL IM 6+ MO 2021-07-01 00:00:00 Completed [facility] Influenza Virus Vaccine Quad .5 mL IM 6+ MO 2021-07-01 00:00:00 Completed [facility] Influenza Virus Vaccine Quad .5 mL IM 6+ MO 2021-07-01 00:00:00 Completed [facility] Influenza Virus Vaccine Quad .5 mL IM 6+ MO 2021-07-01 00:00:00 Completed [facility] Influenza Virus Vaccine Quad .5 mL IM 6+ MO 2021-07-01 00:00:00 Completed [facility] Influenza Virus Vaccine Quad .5 mL IM 6+ MO 2021-07-01 00:00:00 Completed [facility] Influenza Virus Vaccine Quad .5 mL IM 6+ MO 2021-07-01 00:00:00 Completed [facility] Influenza Virus Vaccine Quad .5 mL IM 6+ MO 2021-07-01 00:00:00 Completed [facility] Influenza Virus Vaccine Quad .5 mL IM 6+ MO 2021-07-01 00:00:00 Completed [facility] Influenza Virus Vaccine Quad .5 mL IM 6+ MO 2021-07-01 00:00:00 Completed [facility] Influenza Virus Vaccine Quad .5 mL IM 6+ MO 2021-07-01 00:00:00 Completed [facility] Influenza Virus Vaccine Quad .5 mL IM 6+ MO 2021-07-01 00:00:00 Completed [facility] Influenza Virus Vaccine Quad .5 mL IM 6+ MO 2021-07-01 00:00:00 Completed [facility] Influenza Virus Vaccine Quad .5 mL IM 6+ MO 2021-07-01 00:00:00 Completed [facility] Influenza Virus Vaccine Quad .5 mL IM 6+ MO 2021-07-01 00:00:00 Completed [facility] Influenza Virus Vaccine Quad .5 mL IM 6+ MO 2021-07-01 00:00:00 Completed [facility] Influenza Virus Vaccine Quad .5 mL IM 6+ MO 2021-07-01 00:00:00 Completed [facility] Influenza Virus Vaccine Quad .5 mL IM 6+ MO 2021-07-01 00:00:00 Completed [facility] Influenza Virus Vaccine Quad .5 mL IM 6+ MO 2021-07-01 00:00:00 Completed [facility] Influenza Virus Vaccine Quad .5 mL IM 6+ MO 2021-07-01 00:00:00 Completed [facility] Influenza Virus Vaccine Quad .5 mL IM 6+ MO 2021-07-01 00:00:00 Completed [facility] Influenza Virus Vaccine Quad .5 mL IM 6+ MO 2021-07-01 00:00:00 Completed [facility] Influenza Virus Vaccine Quad .5 mL IM 6+ MO 2021-07-01 00:00:00 Completed [facility] Influenza Virus Vaccine Quad .5 mL IM 6+ MO 2021-07-01 00:00:00 Completed [facility] Influenza Virus Vaccine Quad .5 mL IM 6+ MO 2021-07-01 00:00:00 Completed [facility] Influenza Virus Vaccine Quad .5 mL IM 6+ MO 2021-07-01 00:00:00 Completed [facility] Influenza Virus Vaccine Quad .5 mL IM 6+ MO 2021-07-01 00:00:00 Completed [facility] Influenza Virus Vaccine Quad .5 mL IM 6+ MO 2021-07-01 00:00:00 Completed [facility] Influenza Virus Vaccine Quad .5 mL IM 6+ MO 2021-07-01 00:00:00 Completed [facility] Influenza Virus Vaccine Quad .5 mL IM 6+ MO 2021-07-01 00:00:00 Completed [facility] Influenza Virus Vaccine Quad .5 mL IM 6+ MO 2021-07-01 00:00:00 Completed [facility] Influenza Virus Vaccine Quad .5 mL IM 6+ MO 2021-07-01 00:00:00 Completed [facility] Influenza Virus Vaccine Quad .5 mL IM 6+ MO 2021-07-01 00:00:00 Completed [facility] Influenza Virus Vaccine Quad .5 mL IM 6+ MO 2021-07-01 00:00:00 Completed [facility] Influenza Virus Vaccine Quad .5 mL IM 6+ MO 2021-07-01 00:00:00 Completed [facility] Influenza Virus Vaccine Quad .5 mL IM 6+ MO 2021-07-01 00:00:00 Completed [facility] Influenza Virus Vaccine Quad .5 mL IM 6+ MO 2021-07-01 00:00:00 Completed [facility] Influenza Virus Vaccine Quad .5 mL IM 6+ MO 2021-07-01 00:00:00 Completed [facility] Influenza Virus Vaccine Quad .5 mL IM 6+ MO 2021-07-01 00:00:00 Completed [facility] Influenza Virus Vaccine Quad .5 mL IM 6+ MO 2021-07-01 00:00:00 Completed [facility] Influenza Virus Vaccine Quad .5 mL IM 6+ MO 2021-07-01 00:00:00 Completed [facility] Influenza Virus Vaccine Quad .5 mL IM 6+ MO 2021-07-01 00:00:00 Completed [facility] Influenza Virus Vaccine Quad .5 mL IM 6+ MO 2021-07-01 00:00:00 Completed [facility] Influenza Virus Vaccine Quad .5 mL IM 6+ MO 2021-07-01 00:00:00 Completed [facility] Influenza Virus Vaccine Quad .5 mL IM 6+ MO 2021-07-01 00:00:00 Completed [facility] Influenza Virus Vaccine Quad .5 mL IM 6+ MO 2021-07-01 00:00:00 Completed [facility] Influenza Virus Vaccine Quad .5 mL IM 6+ MO 2021-07-01 00:00:00 Completed [facility] Influenza Virus Vaccine Quad .5 mL IM 6+ MO 2021-07-01 00:00:00 Completed [facility] Influenza Virus Vaccine Quad .5 mL IM 6+ MO 2021-07-01 00:00:00 Completed [facility] Influenza Virus Vaccine Quad .5 mL IM 6+ MO 2021-07-01 00:00:00 Completed [facility] Influenza Virus Vaccine Quad .5 mL IM 6+ MO 2021-07-01 00:00:00 Completed [facility] Influenza Virus Vaccine Quad .5 mL IM 6+ MO 2021-07-01 00:00:00 Completed [facility] Influenza Virus Vaccine Quad .5 mL IM 6+ MO 2021-07-01 00:00:00 Completed [facility] Influenza Virus Vaccine Quad .5 mL IM 6+ MO 2021-07-01 00:00:00 Completed [facility] Influenza Virus Vaccine Quad .5 mL IM 6+ MO 2021-07-01 00:00:00 Completed [facility] Influenza Virus Vaccine Quad .5 mL IM 6+ MO 2021-07-01 00:00:00 Completed [facility] Influenza Virus Vaccine Quad .5 mL IM 6+ MO 2021-07-01 00:00:00 Completed [facility] Influenza Virus Vaccine Quad .5 mL IM 6+ MO 2021-07-01 00:00:00 Completed [facility] Influenza Virus Vaccine Quad .5 mL IM 6+ MO 2021-07-01 00:00:00 Completed [facility] Influenza Virus Vaccine Quad .5 mL IM 6+ MO 2021-07-01 00:00:00 Completed [facility] Influenza Virus Vaccine Quad .5 mL IM 6+ MO 2021-07-01 00:00:00 Completed [facility] Influenza Virus Vaccine Quad .5 mL IM 6+ MO 2021-07-01 00:00:00 Completed [facility] Influenza Virus Vaccine Quad .5 mL IM 6+ MO 2021-07-01 00:00:00 Completed [facility] Influenza Virus Vaccine Quad .5 mL IM 6+ MO 2021-07-01 00:00:00 Completed [facility] Influenza Virus Vaccine Quad .5 mL IM 6+ MO 2021-07-01 00:00:00 Completed [facility] Influenza Virus Vaccine Quad .5 mL IM 6+ MO 2021-07-01 00:00:00 Completed [facility] Influenza Virus Vaccine Quad .5 mL IM 6+ MO 2021-07-01 00:00:00 Completed [facility] Influenza Virus Vaccine Quad .5 mL IM 6+ MO 2021-07-01 00:00:00 Completed [facility] Influenza Virus Vaccine Quad .5 mL IM 6+ MO 2021-07-01 00:00:00 Completed [facility] Influenza Virus Vaccine Quad .5 mL IM 6+ MO 2021-07-01 00:00:00 Completed [facility] Influenza Virus Vaccine Quad .5 mL IM 6+ MO 2021-07-01 00:00:00 Completed [facility] Influenza Virus Vaccine Quad .5 mL IM 6+ MO 2021-07-01 00:00:00 Completed [facility] Influenza Virus Vaccine Quad .5 mL IM 6+ MO 2021-07-01 00:00:00 Completed [facility] Influenza Virus Vaccine Quad .5 mL IM 6+ MO 2021-07-01 00:00:00 Completed [facility] Influenza Virus Vaccine Quad .5 mL IM 6+ MO 2021-07-01 00:00:00 Completed [facility] Influenza Virus Vaccine Quad .5 mL IM 6+ MO 2021-07-01 00:00:00 Completed [facility] Influenza Virus Vaccine Quad .5 mL IM 6+ MO 2021-07-01 00:00:00 Completed [facility] Influenza Virus Vaccine Quad .5 mL IM 6+ MO 2021-07-01 00:00:00 Completed [facility] Influenza Virus Vaccine Quad .5 mL IM 6+ MO 2021-07-01 00:00:00 Completed [facility] Influenza Virus Vaccine Quad .5 mL IM 6+ MO 2021-07-01 00:00:00 Completed [facility] Influenza Virus Vaccine Quad .5 mL IM 6+ MO 2021-07-01 00:00:00 Completed [facility] Influenza Virus Vaccine Quad .5 mL IM 6+ MO (FLUZONE/FLULAVAL/F LUARIX) 2021-07-01 00:00:00 Completed [facility] Influenza Virus Vaccine Quad .5 mL IM 6+ MO (FLUZONE/FLULAVAL/F LUARIX) 2021-07-01 00:00:00 Completed [facility] Influenza Virus Vaccine Quad .5 mL IM 6+ MO (FLUZONE/FLULAVAL/F LUARIX) 2021-07-01 00:00:00 Completed [facility] Influenza Virus Vaccine Quad .5 mL IM 6+ MO 2021-07-01 00:00:00 Completed [facility] Influenza Virus Vaccine Quad .5 mL IM 6+ MO 2021-07-01 00:00:00 Completed [facility] Influenza Virus Vaccine Quad .5 mL IM 6+ MO 2021-07-01 00:00:00 Completed [facility] Influenza Virus Vaccine Quad .5 mL IM 6+ MO 2021-07-01 00:00:00 Completed [facility] Influenza Virus Vaccine Quad .5 mL IM 6+ MO 2021-07-01 00:00:00 Completed [facility] Influenza Virus Vaccine Quad .5 mL IM 6+ MO 2021-07-01 00:00:00 Completed [facility] Influenza Virus Vaccine Quad .5 mL IM 6+ MO 2021-07-01 00:00:00 Completed [facility] Influenza Virus Vaccine Quad .5 mL IM 6+ MO 2021-07-01 00:00:00 Completed [facility] Influenza Virus Vaccine Quad .5 mL IM 6+ MO 2021-07-01 00:00:00 Completed [facility] Influenza Virus Vaccine Quad .5 mL IM 6+ MO 2021-07-01 00:00:00 Completed [facility] Influenza Virus Vaccine Quad .5 mL IM 6+ MO 2021-07-01 00:00:00 Completed [facility] Influenza Virus Vaccine Quad .5 mL IM 6+ MO 2021-07-01 00:00:00 Completed [facility] Influenza Virus Vaccine Quad .5 mL IM 6+ MO 2021-07-01 00:00:00 Completed [facility] Influenza Virus Vaccine Quad .5 mL IM 6+ MO 2021-07-01 00:00:00 Completed [facility] Influenza Virus Vaccine Quad .5 mL IM 6+ MO 2021-07-01 00:00:00 Completed [facility] Influenza Virus Vaccine Quad .5 mL IM 6+ MO 2021-07-01 00:00:00 Completed [facility] Influenza Virus Vaccine Quad .5 mL IM 6+ MO 2021-07-01 00:00:00 Completed [facility] Influenza Virus Vaccine Quad .5 mL IM 6+ MO 2021-07-01 00:00:00 Completed [facility] Influenza Virus Vaccine Quad .5 mL IM 6+ MO 2021-07-01 00:00:00 Completed [facility] Influenza Virus Vaccine Quad .5 mL IM 6+ MO 2021-07-01 00:00:00 Completed [facility] Influenza Virus Vaccine Quad .5 mL IM 6+ MO 2021-07-01 00:00:00 Completed [facility] Influenza Virus Vaccine Quad .5 mL IM 6+ MO 2021-07-01 00:00:00 Completed [facility] Influenza Virus Vaccine Quad .5 mL IM 6+ MO 2021-07-01 00:00:00 Completed [facility] Influenza Virus Vaccine Quad .5 mL IM 6+ MO 2021-07-01 00:00:00 Completed [facility] Influenza Virus Vaccine Quad .5 mL IM 6+ MO 2021-07-01 00:00:00 Completed [facility] Influenza Virus Vaccine Quad .5 mL IM 6+ MO 2021-07-01 00:00:00 Completed [facility] Influenza Virus Vaccine Quad .5 mL IM 6+ MO 2021-07-01 00:00:00 Completed [facility] Influenza Virus Vaccine Quad .5 mL IM 6+ MO 2021-07-01 00:00:00 Completed [facility] Influenza Virus Vaccine Quad .5 mL IM 6+ MO 2021-07-01 00:00:00 Completed [facility] Influenza Virus Vaccine Quad .5 mL IM 6+ MO 2021-07-01 00:00:00 Completed [facility] Influenza Virus Vaccine Quad .5 mL IM 6+ MO 2021-07-01 00:00:00 Completed [facility] Influenza Virus Vaccine Quad .5 mL IM 6+ MO 2021-07-01 00:00:00 Completed [facility] Influenza Virus Vaccine Quad .5 mL IM 6+ MO 2021-07-01 00:00:00 Completed [facility] Influenza Virus Vaccine Quad .5 mL IM 6+ MO 2021-07-01 00:00:00 Completed [facility] Influenza Virus Vaccine Quad .5 mL IM 6+ MO 2021-07-01 00:00:00 Completed [facility] Influenza Virus Vaccine Quad .5 mL IM 6+ MO 2021-07-01 00:00:00 Completed [facility] Influenza Virus Vaccine Quad .5 mL IM 6+ MO 2021-07-01 00:00:00 Completed [facility] Influenza Virus Vaccine Quad .5 mL IM 6+ MO 2021-07-01 00:00:00 Completed [facility] Influenza Virus Vaccine Quad .5 mL IM 6+ MO 2021-07-01 00:00:00 Completed [facility] Influenza Virus Vaccine Quad .5 mL IM 6+ MO 2021-07-01 00:00:00 Completed [facility] Influenza Virus Vaccine Quad .5 mL IM 6+ MO 2021-07-01 00:00:00 Completed [facility] Influenza Virus Vaccine Quad .5 mL IM 6+ MO 2021-07-01 00:00:00 Completed [facility] Influenza Virus Vaccine Quad .5 mL IM 6+ MO 2021-07-01 00:00:00 Completed [facility] Influenza Virus Vaccine Quad .5 mL IM 6+ MO 2021-07-01 00:00:00 Completed [facility] Influenza Virus Vaccine Quad .5 mL IM 6+ MO 2021-07-01 00:00:00 Completed [facility] Influenza Virus Vaccine Quad .5 mL IM 6+ MO 2021-07-01 00:00:00 Completed [facility] Influenza Virus Vaccine Quad .5 mL IM 6+ MO 2021-07-01 00:00:00 Completed [facility] Influenza Virus Vaccine Quad .5 mL IM 6+ MO 2021-07-01 00:00:00 Completed [facility] Influenza Virus Vaccine Quad .5 mL IM 6+ MO 2021-07-01 00:00:00 Completed [facility] Influenza Virus Vaccine Quad .5 mL IM 6+ MO 2021-07-01 00:00:00 Completed [facility] Influenza Virus Vaccine Quad .5 mL IM 6+ MO 2021-07-01 00:00:00 Completed [facility] Influenza Virus Vaccine Quad .5 mL IM 6+ MO 2021-07-01 00:00:00 Completed [facility] Pneumococcal Polysaccharide, PPSV23 (PNEUMOVAX) 2020-07-13 00:00:00 Completed [facility] Pneumococcal Polysaccharide, PPSV23 (PNEUMOVAX) 2020-07-13 00:00:00 Completed [facility] Pneumococcal Polysaccharide, PPSV23 (PNEUMOVAX) 2020-07-13 00:00:00 Completed [facility] Pneumococcal Polysaccharide, PPSV23 (PNEUMOVAX) 2020-07-13 00:00:00 Completed [facility] Pneumococcal Polysaccharide, PPSV23 (PNEUMOVAX) 2020-07-13 00:00:00 Completed [facility] Pneumococcal Polysaccharide, PPSV23 (PNEUMOVAX) 2020-07-13 00:00:00 Completed [facility] Pneumococcal Polysaccharide, PPSV23 (PNEUMOVAX) 2020-07-13 00:00:00 Completed [facility] Pneumococcal Polysaccharide, PPSV23 (PNEUMOVAX) 2020-07-13 00:00:00 Completed [facility] Pneumococcal Polysaccharide, PPSV23 (PNEUMOVAX) 2020-07-13 00:00:00 Completed [facility] Pneumococcal Polysaccharide, PPSV23 (PNEUMOVAX) 2020-07-13 00:00:00 Completed [facility] Pneumococcal Polysaccharide, PPSV23 (PNEUMOVAX) 2020-07-13 00:00:00 Completed [facility] Pneumococcal Polysaccharide, PPSV23 (PNEUMOVAX) 2020-07-13 00:00:00 Completed [facility] Pneumococcal Polysaccharide, PPSV23 (PNEUMOVAX) 2020-07-13 00:00:00 Completed [facility] Pneumococcal Polysaccharide, PPSV23 (PNEUMOVAX) 2020-07-13 00:00:00 Completed [facility] Pneumococcal Polysaccharide, PPSV23 (PNEUMOVAX) 2020-07-13 00:00:00 Completed [facility] Pneumococcal Polysaccharide, PPSV23 (PNEUMOVAX) 2020-07-13 00:00:00 Completed [facility] Pneumococcal Polysaccharide, PPSV23 (PNEUMOVAX) 2020-07-13 00:00:00 Completed [facility] Pneumococcal Polysaccharide, PPSV23 (PNEUMOVAX) 2020-07-13 00:00:00 Completed [facility] Pneumococcal Polysaccharide, PPSV23 (PNEUMOVAX) 2020-07-13 00:00:00 Completed [facility] Pneumococcal Polysaccharide, PPSV23 (PNEUMOVAX) 2020-07-13 00:00:00 Completed [facility] Pneumococcal Polysaccharide, PPSV23 (PNEUMOVAX) 2020-07-13 00:00:00 Completed [facility] Pneumococcal Polysaccharide, PPSV23 (PNEUMOVAX) 2020-07-13 00:00:00 Completed [facility] Pneumococcal Polysaccharide, PPSV23 (PNEUMOVAX) 2020-07-13 00:00:00 Completed [facility] Pneumococcal Polysaccharide, PPSV23 (PNEUMOVAX) 2020-07-13 00:00:00 Completed [facility] Pneumococcal Polysaccharide, PPSV23 (PNEUMOVAX) 2020-07-13 00:00:00 Completed [facility] Pneumococcal Polysaccharide, PPSV23 (PNEUMOVAX) 2020-07-13 00:00:00 Completed [facility] Pneumococcal Polysaccharide, PPSV23 (PNEUMOVAX) 2020-07-13 00:00:00 Completed [facility] Pneumococcal Polysaccharide, PPSV23 (PNEUMOVAX) 2020-07-13 00:00:00 Completed [facility] Pneumococcal Polysaccharide, PPSV23 (PNEUMOVAX) 2020-07-13 00:00:00 Completed [facility] Pneumococcal Polysaccharide, PPSV23 (PNEUMOVAX) 2020-07-13 00:00:00 Completed [facility] Pneumococcal Polysaccharide, PPSV23 (PNEUMOVAX) 2020-07-13 00:00:00 Completed [facility] Pneumococcal Polysaccharide, PPSV23 (PNEUMOVAX) 2020-07-13 00:00:00 Completed [facility] Pneumococcal Polysaccharide, PPSV23 (PNEUMOVAX) 2020-07-13 00:00:00 Completed [facility] Pneumococcal Polysaccharide, PPSV23 (PNEUMOVAX) 2020-07-13 00:00:00 Completed [facility] Pneumococcal Polysaccharide, PPSV23 (PNEUMOVAX) 2020-07-13 00:00:00 Completed [facility] Pneumococcal Polysaccharide, PPSV23 (PNEUMOVAX) 2020-07-13 00:00:00 Completed [facility] Pneumococcal Polysaccharide, PPSV23 (PNEUMOVAX) 2020-07-13 00:00:00 Completed [facility] Pneumococcal Polysaccharide, PPSV23 (PNEUMOVAX) 2020-07-13 00:00:00 Completed [facility] Pneumococcal Polysaccharide, PPSV23 (PNEUMOVAX) 2020-07-13 00:00:00 Completed [facility] Pneumococcal Polysaccharide, PPSV23 (PNEUMOVAX) 2020-07-13 00:00:00 Completed [facility] Pneumococcal Polysaccharide, PPSV23 (PNEUMOVAX) 2020-07-13 00:00:00 Completed [facility] Pneumococcal Polysaccharide, PPSV23 (PNEUMOVAX) 2020-07-13 00:00:00 Completed [facility] Pneumococcal Polysaccharide, PPSV23 (PNEUMOVAX) 2020-07-13 00:00:00 Completed [facility] Pneumococcal Polysaccharide, PPSV23 (PNEUMOVAX) 2020-07-13 00:00:00 Completed [facility] Pneumococcal Polysaccharide, PPSV23 (PNEUMOVAX) 2020-07-13 00:00:00 Completed [facility] Pneumococcal Polysaccharide, PPSV23 (PNEUMOVAX) 2020-07-13 00:00:00 Completed [facility] Pneumococcal Polysaccharide, PPSV23 (PNEUMOVAX) 2020-07-13 00:00:00 Completed [facility] Pneumococcal Polysaccharide, PPSV23 (PNEUMOVAX) 2020-07-13 00:00:00 Completed [facility] Pneumococcal Polysaccharide, PPSV23 (PNEUMOVAX) 2020-07-13 00:00:00 Completed [facility] Pneumococcal Polysaccharide, PPSV23 (PNEUMOVAX) 2020-07-13 00:00:00 Completed [facility] Pneumococcal Polysaccharide, PPSV23 (PNEUMOVAX) 2020-07-13 00:00:00 Completed [facility] Pneumococcal Polysaccharide, PPSV23 (PNEUMOVAX) 2020-07-13 00:00:00 Completed [facility] Pneumococcal Polysaccharide, PPSV23 (PNEUMOVAX) 2020-07-13 00:00:00 Completed [facility] Pneumococcal Polysaccharide, PPSV23 (PNEUMOVAX) 2020-07-13 00:00:00 Completed [facility] Pneumococcal Polysaccharide, PPSV23 (PNEUMOVAX) 2020-07-13 00:00:00 Completed [facility] Pneumococcal Polysaccharide, PPSV23 (PNEUMOVAX) 2020-07-13 00:00:00 Completed [facility] Pneumococcal Polysaccharide, PPSV23 (PNEUMOVAX) 2020-07-13 00:00:00 Completed [facility] Pneumococcal Polysaccharide, PPSV23 (PNEUMOVAX) 2020-07-13 00:00:00 Completed [facility] Pneumococcal Polysaccharide, PPSV23 (PNEUMOVAX) 2020-07-13 00:00:00 Completed [facility] Pneumococcal Polysaccharide, PPSV23 (PNEUMOVAX) 2020-07-13 00:00:00 Completed [facility] Pneumococcal Polysaccharide, PPSV23 (PNEUMOVAX) 2020-07-13 00:00:00 Completed [facility] Pneumococcal Polysaccharide, PPSV23 (PNEUMOVAX) 2020-07-13 00:00:00 Completed [facility] Pneumococcal Polysaccharide, PPSV23 (PNEUMOVAX) 2020-07-13 00:00:00 Completed [facility] Pneumococcal Polysaccharide, PPSV23 (PNEUMOVAX) 2020-07-13 00:00:00 Completed [facility] Pneumococcal Polysaccharide, PPSV23 (PNEUMOVAX) 2020-07-13 00:00:00 Completed [facility] Pneumococcal Polysaccharide, PPSV23 (PNEUMOVAX) 2020-07-13 00:00:00 Completed [facility] Pneumococcal Polysaccharide, PPSV23 (PNEUMOVAX) 2020-07-13 00:00:00 Completed [facility] Pneumococcal Polysaccharide, PPSV23 (PNEUMOVAX) 2020-07-13 00:00:00 Completed [facility] Pneumococcal Polysaccharide, PPSV23 (PNEUMOVAX) 2020-07-13 00:00:00 Completed [facility] Pneumococcal Polysaccharide, PPSV23 (PNEUMOVAX) 2020-07-13 00:00:00 Completed [facility] Pneumococcal Polysaccharide, PPSV23 (PNEUMOVAX) 2020-07-13 00:00:00 Completed [facility] Pneumococcal Polysaccharide, PPSV23 (PNEUMOVAX) 2020-07-13 00:00:00 Completed [facility] Pneumococcal Polysaccharide, PPSV23 (PNEUMOVAX) 2020-07-13 00:00:00 Completed [facility] Pneumococcal Polysaccharide, PPSV23 (PNEUMOVAX) 2020-07-13 00:00:00 Completed [facility] Pneumococcal Polysaccharide, PPSV23 (PNEUMOVAX) 2020-07-13 00:00:00 Completed [facility] Pneumococcal Polysaccharide, PPSV23 (PNEUMOVAX) 2020-07-13 00:00:00 Completed [facility] Pneumococcal Polysaccharide, PPSV23 (PNEUMOVAX) 2020-07-13 00:00:00 Completed [facility] Pneumococcal Polysaccharide, PPSV23 (PNEUMOVAX) 2020-07-13 00:00:00 Completed [facility] Pneumococcal Polysaccharide, PPSV23 (PNEUMOVAX) 2020-07-13 00:00:00 Completed [facility] Pneumococcal Polysaccharide, PPSV23 (PNEUMOVAX) 2020-07-13 00:00:00 Completed [facility] Pneumococcal Polysaccharide, PPSV23 (PNEUMOVAX) 2020-07-13 00:00:00 Completed [facility] Pneumococcal Polysaccharide, PPSV23 (PNEUMOVAX) 2020-07-13 00:00:00 Completed [facility] Pneumococcal Polysaccharide, PPSV23 (PNEUMOVAX) 2020-07-13 00:00:00 Completed [facility] Pneumococcal Polysaccharide, PPSV23 (PNEUMOVAX) 2020-07-13 00:00:00 Completed [facility] Pneumococcal Polysaccharide, PPSV23 (PNEUMOVAX) 2020-07-13 00:00:00 Completed [facility] Pneumococcal Polysaccharide, PPSV23 (PNEUMOVAX) 2020-07-13 00:00:00 Completed [facility] Pneumococcal Polysaccharide, PPSV23 (PNEUMOVAX) 2020-07-13 00:00:00 Completed [facility] Pneumococcal Polysaccharide, PPSV23 (PNEUMOVAX) 2020-07-13 00:00:00 Completed [facility] Pneumococcal Polysaccharide, PPSV23 (PNEUMOVAX) 2020-07-13 00:00:00 Completed [facility] Pneumococcal Polysaccharide, PPSV23 (PNEUMOVAX) 2020-07-13 00:00:00 Completed [facility] Pneumococcal Polysaccharide, PPSV23 (PNEUMOVAX) 2020-07-13 00:00:00 Completed [facility] Pneumococcal Polysaccharide, PPSV23 (PNEUMOVAX) 2020-07-13 00:00:00 Completed [facility] Pneumococcal Polysaccharide, PPSV23 (PNEUMOVAX) 2020-07-13 00:00:00 Completed [facility] Pneumococcal Polysaccharide, PPSV23 (PNEUMOVAX) 2020-07-13 00:00:00 Completed [facility] Pneumococcal Polysaccharide, PPSV23 (PNEUMOVAX) 2020-07-13 00:00:00 Completed [facility] Pneumococcal Polysaccharide, PPSV23 (PNEUMOVAX) 2020-07-13 00:00:00 Completed [facility] Pneumococcal Polysaccharide, PPSV23 (PNEUMOVAX) 2020-07-13 00:00:00 Completed [facility] Pneumococcal Polysaccharide, PPSV23 (PNEUMOVAX) 2020-07-13 00:00:00 Completed [facility] Pneumococcal Polysaccharide, PPSV23 (PNEUMOVAX) 2020-07-13 00:00:00 Completed [facility] Pneumococcal Polysaccharide, PPSV23 (PNEUMOVAX) 2020-07-13 00:00:00 Completed [facility] Pneumococcal Polysaccharide, PPSV23 (PNEUMOVAX) 2020-07-13 00:00:00 Completed [facility] Pneumococcal Polysaccharide, PPSV23 (PNEUMOVAX) 2020-07-13 00:00:00 Completed [facility] Pneumococcal Polysaccharide, PPSV23 (PNEUMOVAX) 2020-07-13 00:00:00 Completed [facility] Pneumococcal Polysaccharide, PPSV23 (PNEUMOVAX) 2020-07-13 00:00:00 Completed [facility] Pneumococcal Polysaccharide, PPSV23 (PNEUMOVAX) 2020-07-13 00:00:00 Completed [facility] Pneumococcal Polysaccharide, PPSV23 (PNEUMOVAX) 2020-07-13 00:00:00 Completed [facility] Pneumococcal Polysaccharide, PPSV23 (PNEUMOVAX) 2020-07-13 00:00:00 Completed [facility] Pneumococcal Polysaccharide, PPSV23 (PNEUMOVAX) 2020-07-13 00:00:00 Completed [facility] Pneumococcal Polysaccharide, PPSV23 (PNEUMOVAX) 2020-07-13 00:00:00 Completed [facility] Pneumococcal Polysaccharide, PPSV23 (PNEUMOVAX) 2020-07-13 00:00:00 Completed [facility] Pneumococcal Polysaccharide, PPSV23 (PNEUMOVAX) 2020-07-13 00:00:00 Completed [facility] Pneumococcal Polysaccharide, PPSV23 (PNEUMOVAX) 2020-07-13 00:00:00 Completed [facility] Pneumococcal Polysaccharide, PPSV23 (PNEUMOVAX) 2020-07-13 00:00:00 Completed [facility] Pneumococcal Polysaccharide, PPSV23 (PNEUMOVAX) 2020-07-13 00:00:00 Completed [facility] Pneumococcal Polysaccharide, PPSV23 (PNEUMOVAX) 2020-07-13 00:00:00 Completed [facility] Pneumococcal Polysaccharide, PPSV23 (PNEUMOVAX) 2020-07-13 00:00:00 Completed [facility] Pneumococcal Polysaccharide, PPSV23 (PNEUMOVAX) 2020-07-13 00:00:00 Completed [facility] Pneumococcal Polysaccharide, PPSV23 (PNEUMOVAX) 2020-07-13 00:00:00 Completed [facility] Pneumococcal Polysaccharide, PPSV23 (PNEUMOVAX) 2020-07-13 00:00:00 Completed [facility] Pneumococcal Polysaccharide, PPSV23 (PNEUMOVAX) 2020-07-13 00:00:00 Completed [facility] Pneumococcal Polysaccharide, PPSV23 (PNEUMOVAX) 2020-07-13 00:00:00 Completed [facility] Pneumococcal Polysaccharide, PPSV23 (PNEUMOVAX) 2020-07-13 00:00:00 Completed [facility] Pneumococcal Polysaccharide, PPSV23 (PNEUMOVAX) 2020-07-13 00:00:00 Completed [facility] Pneumococcal Polysaccharide, PPSV23 (PNEUMOVAX) 2020-07-13 00:00:00 Completed [facility] Pneumococcal Polysaccharide, PPSV23 (PNEUMOVAX) 2020-07-13 00:00:00 Completed [facility] Pneumococcal Polysaccharide, PPSV23 (PNEUMOVAX) 2020-07-13 00:00:00 Completed [facility] Pneumococcal Polysaccharide, PPSV23 (PNEUMOVAX) 2020-07-13 00:00:00 Completed [facility] Pneumococcal Polysaccharide, PPSV23 (PNEUMOVAX) 2020-07-13 00:00:00 Completed [facility] Pneumococcal Polysaccharide, PPSV23 (PNEUMOVAX) 2020-07-13 00:00:00 Completed [facility] Pneumococcal Polysaccharide, PPSV23 (PNEUMOVAX) 2020-07-13 00:00:00 Completed [facility] Pneumococcal Polysaccharide, PPSV23 (PNEUMOVAX) 2020-07-13 00:00:00 Completed [facility] Pneumococcal Polysaccharide, PPSV23 (PNEUMOVAX) 2020-07-13 00:00:00 Completed [facility] Pneumococcal Polysaccharide, PPSV23 (PNEUMOVAX) 2020-07-13 00:00:00 Completed [facility] Pneumococcal Polysaccharide, PPSV23 (PNEUMOVAX) 2020-07-13 00:00:00 Completed [facility] Pneumococcal Polysaccharide, PPSV23 (PNEUMOVAX) 2020-07-13 00:00:00 Completed [facility] Pneumococcal Polysaccharide, PPSV23 (PNEUMOVAX) 2020-07-13 00:00:00 Completed [facility] Pneumococcal Polysaccharide, PPSV23 (PNEUMOVAX) 2020-07-13 00:00:00 Completed [facility] Pneumococcal Polysaccharide, PPSV23 (PNEUMOVAX) 2020-07-13 00:00:00 Completed [facility] Pneumococcal Polysaccharide, PPSV23 (PNEUMOVAX) 2020-07-13 00:00:00 Completed [facility] Pneumococcal Polysaccharide, PPSV23 (PNEUMOVAX) 2020-07-13 00:00:00 Completed [facility] Pneumococcal Polysaccharide, PPSV23 (PNEUMOVAX) 2020-07-13 00:00:00 Completed [facility] Pneumococcal Polysaccharide, PPSV23 (PNEUMOVAX) 2020-07-13 00:00:00 Completed [facility] Pneumococcal Polysaccharide, PPSV23 (PNEUMOVAX) 2020-07-13 00:00:00 Completed [facility] Pneumococcal Polysaccharide, PPSV23 (PNEUMOVAX) 2020-07-13 00:00:00 Completed [facility] Pneumococcal Polysaccharide, PPSV23 (PNEUMOVAX) 2020-07-13 00:00:00 Completed [facility] Pneumococcal Polysaccharide, PPSV23 (PNEUMOVAX) 2020-07-13 00:00:00 Completed [facility] Pneumococcal Polysaccharide, PPSV23 (PNEUMOVAX) 2020-07-13 00:00:00 Completed [facility] Pneumococcal Polysaccharide, PPSV23 (PNEUMOVAX) 2020-07-13 00:00:00 Completed [facility] Pneumococcal Polysaccharide, PPSV23 (PNEUMOVAX) 2020-07-13 00:00:00 Completed [facility] Pneumococcal Polysaccharide, PPSV23 (PNEUMOVAX) 2020-07-13 00:00:00 Completed [facility] Pneumococcal Polysaccharide, PPSV23 (PNEUMOVAX) 2020-07-13 00:00:00 Completed [facility] Pneumococcal Polysaccharide, PPSV23 (PNEUMOVAX) 2020-07-13 00:00:00 Completed [facility] Pneumococcal Polysaccharide, PPSV23 (PNEUMOVAX) 2020-07-13 00:00:00 Completed [facility] Pneumococcal Polysaccharide, PPSV23 (PNEUMOVAX) 2020-07-13 00:00:00 Completed [facility] Pneumococcal Polysaccharide, PPSV23 (PNEUMOVAX) 2020-07-13 00:00:00 [facility] [facility] Pneumococcal Polysaccharide, PPSV23 (PNEUMOVAX) 2020-07-13 00:00:00 Completed [facility] Pneumococcal Polysaccharide, PPSV23 (PNEUMOVAX) 2020-07-13 00:00:00 Completed [facility] Pneumococcal Polysaccharide, PPSV23 (PNEUMOVAX) 2020-07-13 00:00:00 Completed [facility] Pneumococcal Polysaccharide, PPSV23 (PNEUMOVAX) 2020-07-13 00:00:00 Completed [facility] Pneumococcal Polysaccharide, PPSV23 (PNEUMOVAX) 2020-07-13 00:00:00 Completed [facility] Pneumococcal Polysaccharide, PPSV23 (PNEUMOVAX) 2020-07-13 00:00:00 Completed [facility] Pneumococcal Polysaccharide, PPSV23 (PNEUMOVAX) 2020-07-13 00:00:00 Completed [facility] Pneumococcal Polysaccharide, PPSV23 (PNEUMOVAX) 2020-07-13 00:00:00 Completed [facility] Pneumococcal Polysaccharide, PPSV23 (PNEUMOVAX) 2020-07-13 00:00:00 Completed [facility] Pneumococcal Polysaccharide, PPSV23 (PNEUMOVAX) 2020-07-13 00:00:00 Completed [facility] Pneumococcal Polysaccharide, PPSV23 (PNEUMOVAX) 2020-07-13 00:00:00 Completed [facility] Pneumococcal Polysaccharide, PPSV23 (PNEUMOVAX) 2020-07-13 00:00:00 Completed [facility] Pneumococcal Polysaccharide, PPSV23 (PNEUMOVAX) 2020-07-13 00:00:00 Completed [facility] Pneumococcal Polysaccharide, PPSV23 (PNEUMOVAX) 2020-07-13 00:00:00 Completed [facility] Pneumococcal Polysaccharide, PPSV23 (PNEUMOVAX) 2020-07-13 00:00:00 Completed [facility] Pneumococcal Polysaccharide, PPSV23 (PNEUMOVAX) 2020-07-13 00:00:00 Completed [facility] Pneumococcal Polysaccharide, PPSV23 (PNEUMOVAX) 2020-07-13 00:00:00 Completed [facility] Pneumococcal Polysaccharide, PPSV23 (PNEUMOVAX) 2020-07-13 00:00:00 Completed [facility] Pneumococcal Polysaccharide, PPSV23 (PNEUMOVAX) 2020-07-13 00:00:00 Completed [facility] Pneumococcal Polysaccharide, PPSV23 (PNEUMOVAX) 2020-07-13 00:00:00 Completed [facility] Pneumococcal Polysaccharide, PPSV23 (PNEUMOVAX) 2020-07-13 00:00:00 Completed [facility] Pneumococcal Polysaccharide, PPSV23 (PNEUMOVAX) 2020-07-13 00:00:00 Completed [facility] Pneumococcal Polysaccharide, PPSV23 (PNEUMOVAX) 2020-07-13 00:00:00 Completed [facility] Pneumococcal Polysaccharide, PPSV23 (PNEUMOVAX) 2020-07-13 00:00:00 Completed [facility] Pneumococcal Polysaccharide, PPSV23 (PNEUMOVAX) 2020-07-13 00:00:00 Completed [facility] Pneumococcal Polysaccharide, PPSV23 (PNEUMOVAX) 2020-07-13 00:00:00 Completed [facility] Pneumococcal Polysaccharide, PPSV23 (PNEUMOVAX) 2020-07-13 00:00:00 Completed [facility] Pneumococcal Polysaccharide, PPSV23 (PNEUMOVAX) 2020-07-13 00:00:00 Completed [facility] Pneumococcal Polysaccharide, PPSV23 (PNEUMOVAX) 2020-07-13 00:00:00 Completed [facility] Pneumococcal Polysaccharide, PPSV23 (PNEUMOVAX) 2020-07-13 00:00:00 Completed [facility] Pneumococcal Polysaccharide, PPSV23 (PNEUMOVAX) 2020-07-13 00:00:00 Completed [facility] Pneumococcal Polysaccharide, PPSV23 (PNEUMOVAX) 2020-07-13 00:00:00 Completed [facility] Pneumococcal Polysaccharide, PPSV23 (PNEUMOVAX) 2020-07-13 00:00:00 Completed [facility] Pneumococcal Polysaccharide, PPSV23 (PNEUMOVAX) 2020-07-13 00:00:00 Completed [facility] Pneumococcal Polysaccharide, PPSV23 (PNEUMOVAX) 2020-07-13 00:00:00 Completed [facility] Pneumococcal Polysaccharide, PPSV23 (PNEUMOVAX) 2020-07-13 00:00:00 Completed [facility] Pneumococcal Polysaccharide, PPSV23 (PNEUMOVAX) 2020-07-13 00:00:00 Completed [facility] Pneumococcal Polysaccharide, PPSV23 (PNEUMOVAX) 2020-07-13 00:00:00 Completed [facility] Pneumococcal Polysaccharide, PPSV23 (PNEUMOVAX) 2020-07-13 00:00:00 Completed [facility] Influenza Virus Vaccine Quad .5 mL IM 6+ MO 2020-05-13 00:00:00 Completed [facility] Influenza Virus Vaccine Quad .5 mL IM 6+ MO 2020-05-13 00:00:00 Completed [facility] Influenza Virus Vaccine Quad .5 mL IM 6+ MO 2020-05-13 00:00:00 Completed [facility] Influenza Virus Vaccine Quad .5 mL IM 6+ MO 2020-05-13 00:00:00 Completed [facility] Influenza Virus Vaccine Quad .5 mL IM 6+ MO 2020-05-13 00:00:00 Completed [facility] Influenza Virus Vaccine Quad .5 mL IM 6+ MO 2020-05-13 00:00:00 Completed [facility] Influenza Virus Vaccine Quad .5 mL IM 6+ MO 2020-05-13 00:00:00 Completed [facility] Influenza Virus Vaccine Quad .5 mL IM 6+ MO 2020-05-13 00:00:00 Completed [facility] Influenza Virus Vaccine Quad .5 mL IM 6+ MO 2020-05-13 00:00:00 Completed [facility] Influenza Virus Vaccine Quad .5 mL IM 6+ MO 2020-05-13 00:00:00 Completed [facility] Influenza Virus Vaccine Quad .5 mL IM 6+ MO 2020-05-13 00:00:00 Completed [facility] Influenza Virus Vaccine Quad .5 mL IM 6+ MO 2020-05-13 00:00:00 Completed [facility] Influenza Virus Vaccine Quad .5 mL IM 6+ MO 2020-05-13 00:00:00 Completed [facility] Influenza Virus Vaccine Quad .5 mL IM 6+ MO 2020-05-13 00:00:00 Completed [facility] Influenza Virus Vaccine Quad .5 mL IM 6+ MO 2020-05-13 00:00:00 Completed [facility] Influenza Virus Vaccine Quad .5 mL IM 6+ MO 2020-05-13 00:00:00 Completed [facility] Influenza Virus Vaccine Quad .5 mL IM 6+ MO 2020-05-13 00:00:00 Completed [facility] Influenza Virus Vaccine Quad .5 mL IM 6+ MO 2020-05-13 00:00:00 Completed [facility] Influenza Virus Vaccine Quad .5 mL IM 6+ MO 2020-05-13 00:00:00 Completed [facility] Influenza Virus Vaccine Quad .5 mL IM 6+ MO 2020-05-13 00:00:00 Completed [facility] Influenza Virus Vaccine Quad .5 mL IM 6+ MO 2020-05-13 00:00:00 Completed [facility] Influenza Virus Vaccine Quad .5 mL IM 6+ MO 2020-05-13 00:00:00 Completed [facility] Influenza Virus Vaccine Quad .5 mL IM 6+ MO 2020-05-13 00:00:00 Completed [facility] Influenza Virus Vaccine Quad .5 mL IM 6+ MO 2020-05-13 00:00:00 Completed [facility] Influenza Virus Vaccine Quad .5 mL IM 6+ MO 2020-05-13 00:00:00 Completed [facility] Influenza Virus Vaccine Quad .5 mL IM 6+ MO 2020-05-13 00:00:00 Completed [facility] Influenza Virus Vaccine Quad .5 mL IM 6+ MO 2020-05-13 00:00:00 Completed [facility] Influenza Virus Vaccine Quad .5 mL IM 6+ MO 2020-05-13 00:00:00 Completed [facility] Influenza Virus Vaccine Quad .5 mL IM 6+ MO 2020-05-13 00:00:00 Completed [facility] Influenza Virus Vaccine Quad .5 mL IM 6+ MO 2020-05-13 00:00:00 Completed [facility] Influenza Virus Vaccine Quad .5 mL IM 6+ MO 2020-05-13 00:00:00 Completed [facility] Influenza Virus Vaccine Quad .5 mL IM 6+ MO 2020-05-13 00:00:00 Completed [facility] Influenza Virus Vaccine Quad .5 mL IM 6+ MO 2020-05-13 00:00:00 Completed [facility] Influenza Virus Vaccine Quad .5 mL IM 6+ MO 2020-05-13 00:00:00 Completed [facility] Influenza Virus Vaccine Quad .5 mL IM 6+ MO 2020-05-13 00:00:00 Completed [facility] Influenza Virus Vaccine Quad .5 mL IM 6+ MO 2020-05-13 00:00:00 Completed [facility] Influenza Virus Vaccine Quad .5 mL IM 6+ MO 2020-05-13 00:00:00 Completed [facility] Influenza Virus Vaccine Quad .5 mL IM 6+ MO 2020-05-13 00:00:00 Completed [facility] Influenza Virus Vaccine Quad .5 mL IM 6+ MO 2020-05-13 00:00:00 Completed [facility] Influenza Virus Vaccine Quad .5 mL IM 6+ MO 2020-05-13 00:00:00 Completed [facility] Influenza Virus Vaccine Quad .5 mL IM 6+ MO 2020-05-13 00:00:00 Completed [facility] Influenza Virus Vaccine Quad .5 mL IM 6+ MO 2020-05-13 00:00:00 Completed [facility] Influenza Virus Vaccine Quad .5 mL IM 6+ MO 2020-05-13 00:00:00 Completed [facility] Influenza Virus Vaccine Quad .5 mL IM 6+ MO 2020-05-13 00:00:00 Completed [facility] Influenza Virus Vaccine Quad .5 mL IM 6+ MO 2020-05-13 00:00:00 Completed [facility] Influenza Virus Vaccine Quad .5 mL IM 6+ MO 2020-05-13 00:00:00 Completed [facility] Influenza Virus Vaccine Quad .5 mL IM 6+ MO 2020-05-13 00:00:00 Completed [facility] Influenza Virus Vaccine Quad .5 mL IM 6+ MO 2020-05-13 00:00:00 Completed [facility] Influenza Virus Vaccine Quad .5 mL IM 6+ MO 2020-05-13 00:00:00 Completed [facility] Influenza Virus Vaccine Quad .5 mL IM 6+ MO 2020-05-13 00:00:00 Completed [facility] Influenza Virus Vaccine Quad .5 mL IM 6+ MO 2020-05-13 00:00:00 Completed [facility] Influenza Virus Vaccine Quad .5 mL IM 6+ MO 2020-05-13 00:00:00 Completed [facility] Influenza Virus Vaccine Quad .5 mL IM 6+ MO 2020-05-13 00:00:00 Completed [facility] Influenza Virus Vaccine Quad .5 mL IM 6+ MO 2020-05-13 00:00:00 Completed [facility] Influenza Virus Vaccine Quad .5 mL IM 6+ MO 2020-05-13 00:00:00 Completed [facility] Influenza Virus Vaccine Quad .5 mL IM 6+ MO 2020-05-13 00:00:00 Completed [facility] Influenza Virus Vaccine Quad .5 mL IM 6+ MO 2020-05-13 00:00:00 Completed [facility] Influenza Virus Vaccine Quad .5 mL IM 6+ MO 2020-05-13 00:00:00 Completed [facility] Influenza Virus Vaccine Quad .5 mL IM 6+ MO 2020-05-13 00:00:00 Completed [facility] Influenza Virus Vaccine Quad .5 mL IM 6+ MO 2020-05-13 00:00:00 Completed [facility] Influenza Virus Vaccine Quad .5 mL IM 6+ MO 2020-05-13 00:00:00 Completed [facility] Influenza Virus Vaccine Quad .5 mL IM 6+ MO 2020-05-13 00:00:00 Completed [facility] Influenza Virus Vaccine Quad .5 mL IM 6+ MO 2020-05-13 00:00:00 Completed [facility] Influenza Virus Vaccine Quad .5 mL IM 6+ MO 2020-05-13 00:00:00 Completed [facility] Influenza Virus Vaccine Quad .5 mL IM 6+ MO 2020-05-13 00:00:00 Completed [facility] Influenza Virus Vaccine Quad .5 mL IM 6+ MO 2020-05-13 00:00:00 Completed [facility] Influenza Virus Vaccine Quad .5 mL IM 6+ MO 2020-05-13 00:00:00 Completed [facility] Influenza Virus Vaccine Quad .5 mL IM 6+ MO 2020-05-13 00:00:00 Completed [facility] Influenza Virus Vaccine Quad .5 mL IM 6+ MO 2020-05-13 00:00:00 Completed [facility] Influenza Virus Vaccine Quad .5 mL IM 6+ MO 2020-05-13 00:00:00 Completed [facility] Influenza Virus Vaccine Quad .5 mL IM 6+ MO 2020-05-13 00:00:00 Completed [facility] Influenza Virus Vaccine Quad .5 mL IM 6+ MO 2020-05-13 00:00:00 Completed [facility] Influenza Virus Vaccine Quad .5 mL IM 6+ MO 2020-05-13 00:00:00 Completed [facility] Influenza Virus Vaccine Quad .5 mL IM 6+ MO 2020-05-13 00:00:00 Completed [facility] Influenza Virus Vaccine Quad .5 mL IM 6+ MO 2020-05-13 00:00:00 Completed [facility] Influenza Virus Vaccine Quad .5 mL IM 6+ MO 2020-05-13 00:00:00 Completed [facility] Influenza Virus Vaccine Quad .5 mL IM 6+ MO 2020-05-13 00:00:00 Completed [facility] Influenza Virus Vaccine Quad .5 mL IM 6+ MO 2020-05-13 00:00:00 Completed [facility] Influenza Virus Vaccine Quad .5 mL IM 6+ MO 2020-05-13 00:00:00 Completed [facility] Influenza Virus Vaccine Quad .5 mL IM 6+ MO 2020-05-13 00:00:00 Completed [facility] Influenza Virus Vaccine Quad .5 mL IM 6+ MO 2020-05-13 00:00:00 Completed [facility] Influenza Virus Vaccine Quad .5 mL IM 6+ MO 2020-05-13 00:00:00 Completed [facility] Influenza Virus Vaccine Quad .5 mL IM 6+ MO 2020-05-13 00:00:00 Completed [facility] Influenza Virus Vaccine Quad .5 mL IM 6+ MO 2020-05-13 00:00:00 Completed [facility] Influenza Virus Vaccine Quad .5 mL IM 6+ MO 2020-05-13 00:00:00 Completed [facility] Influenza Virus Vaccine Quad .5 mL IM 6+ MO 2020-05-13 00:00:00 Completed [facility] Influenza Virus Vaccine Quad .5 mL IM 6+ MO 2020-05-13 00:00:00 Completed [facility] Influenza Virus Vaccine Quad .5 mL IM 6+ MO 2020-05-13 00:00:00 Completed [facility] Influenza Virus Vaccine Quad .5 mL IM 6+ MO 2020-05-13 00:00:00 Completed [facility] Influenza Virus Vaccine Quad .5 mL IM 6+ MO 2020-05-13 00:00:00 Completed [facility] Influenza Virus Vaccine Quad .5 mL IM 6+ MO 2020-05-13 00:00:00 Completed [facility] Influenza Virus Vaccine Quad .5 mL IM 6+ MO 2020-05-13 00:00:00 Completed [facility] Influenza Virus Vaccine Quad .5 mL IM 6+ MO 2020-05-13 00:00:00 Completed [facility] Influenza Virus Vaccine Quad .5 mL IM 6+ MO 2020-05-13 00:00:00 Completed [facility] Influenza Virus Vaccine Quad .5 mL IM 6+ MO 2020-05-13 00:00:00 Completed [facility] Influenza Virus Vaccine Quad .5 mL IM 6+ MO 2020-05-13 00:00:00 Completed [facility] Influenza Virus Vaccine Quad .5 mL IM 6+ MO 2020-05-13 00:00:00 Completed [facility] Influenza Virus Vaccine Quad .5 mL IM 6+ MO 2020-05-13 00:00:00 Completed [facility] Influenza Virus Vaccine Quad .5 mL IM 6+ MO 2020-05-13 00:00:00 Completed [facility] Influenza Virus Vaccine Quad .5 mL IM 6+ MO 2020-05-13 00:00:00 Completed [facility] Influenza Virus Vaccine Quad .5 mL IM + MO 2020-05-13 00:00:00 Completed [facility] Influenza Virus Vaccine Quad .5 mL IM 6+ MO 2020-05-13 00:00:00 Completed [facility] Influenza Virus Vaccine Quad .5 mL IM 6+ MO 2020-05-13 00:00:00 Completed [facility] Influenza Virus Vaccine Quad .5 mL IM 6+ MO 2020-05-13 00:00:00 Completed [facility] Influenza Virus Vaccine Quad .5 mL IM 6+ MO 2020-05-13 00:00:00 Completed [facility] Influenza Virus Vaccine Quad .5 mL IM 6+ MO 2020-05-13 00:00:00 Completed [facility] Influenza Virus Vaccine Quad .5 mL IM 6+ MO 2020-05-13 00:00:00 Completed [facility] Influenza Virus Vaccine Quad .5 mL IM 6+ MO 2020-05-13 00:00:00 Completed [facility] Influenza Virus Vaccine Quad .5 mL IM 6+ MO 2020-05-13 00:00:00 Completed [facility] Influenza Virus Vaccine Quad .5 mL IM 6+ MO 2020-05-13 00:00:00 Completed [facility] Influenza Virus Vaccine Quad .5 mL IM 6+ MO 2020-05-13 00:00:00 Completed [facility] Influenza Virus Vaccine Quad .5 mL IM 6+ MO 2020-05-13 00:00:00 Completed [facility] Influenza Virus Vaccine Quad .5 mL IM 6+ MO 2020-05-13 00:00:00 Completed [facility] Influenza Virus Vaccine Quad .5 mL IM 6+ MO 2020-05-13 00:00:00 Completed [facility] Influenza Virus Vaccine Quad .5 mL IM 6+ MO 2020-05-13 00:00:00 Completed [facility] Influenza Virus Vaccine Quad .5 mL IM 6+ MO 2020-05-13 00:00:00 Completed [facility] Influenza Virus Vaccine Quad .5 mL IM 6+ MO 2020-05-13 00:00:00 Completed [facility] Influenza Virus Vaccine Quad .5 mL IM 6+ MO 2020-05-13 00:00:00 Completed [facility] Influenza Virus Vaccine Quad .5 mL IM 6+ MO 2020-05-13 00:00:00 Completed [facility] Influenza Virus Vaccine Quad .5 mL IM 6+ MO 2020-05-13 00:00:00 Completed [facility] Influenza Virus Vaccine Quad .5 mL IM 6+ MO 2020-05-13 00:00:00 Completed [facility] Influenza Virus Vaccine Quad .5 mL IM 6+ MO 2020-05-13 00:00:00 Completed [facility] Influenza Virus Vaccine Quad .5 mL IM 6+ MO 2020-05-13 00:00:00 Completed [facility] Influenza Virus Vaccine Quad .5 mL IM 6+ MO 2020-05-13 00:00:00 Completed [facility] Influenza Virus Vaccine Quad .5 mL IM 6+ MO 2020-05-13 00:00:00 Completed [facility] Influenza Virus Vaccine Quad .5 mL IM 6+ MO 2020-05-13 00:00:00 Completed [facility] Influenza Virus Vaccine Quad .5 mL IM 6+ MO 2020-05-13 00:00:00 Completed [facility] Influenza Virus Vaccine Quad .5 mL IM 6+ MO 2020-05-13 00:00:00 Completed [facility] Influenza Virus Vaccine Quad .5 mL IM 6+ MO 2020-05-13 00:00:00 Completed [facility] Influenza Virus Vaccine Quad .5 mL IM 6+ MO 2020-05-13 00:00:00 Completed [facility] Influenza Virus Vaccine Quad .5 mL IM 6+ MO 2020-05-13 00:00:00 Completed [facility] Influenza Virus Vaccine Quad .5 mL IM 6+ MO 2020-05-13 00:00:00 Completed [facility] Influenza Virus Vaccine Quad .5 mL IM 6+ MO 2020-05-13 00:00:00 Completed [facility] Influenza Virus Vaccine Quad .5 mL IM 6+ MO 2020-05-13 00:00:00 Completed [facility] Influenza Virus Vaccine Quad .5 mL IM 6+ MO 2020-05-13 00:00:00 Completed [facility] Influenza Virus Vaccine Quad .5 mL IM 6+ MO 2020-05-13 00:00:00 Completed [facility] Influenza Virus Vaccine Quad .5 mL IM 6+ MO 2020-05-13 00:00:00 Completed [facility] Influenza Virus Vaccine Quad .5 mL IM 6+ MO 2020-05-13 00:00:00 Completed [facility] Influenza Virus Vaccine Quad .5 mL IM 6+ MO 2020-05-13 00:00:00 Completed [facility] Influenza Virus Vaccine Quad .5 mL IM 6+ MO (FLUZONE/FLULAVAL/F LUARIX) 2020-05-13 00:00:00 Completed [facility] Influenza Virus Vaccine Quad .5 mL IM 6+ MO (FLUZONE/FLULAVAL/F LUARIX) 2020-05-13 00:00:00 Completed [facility] Influenza Virus Vaccine Quad .5 mL IM 6+ MO (FLUZONE/FLULAVAL/F LUARIX) 2020-05-13 00:00:00 Completed [facility] Influenza Virus Vaccine Quad .5 mL IM 6+ MO 2020-05-13 00:00:00 Completed [facility] Influenza Virus Vaccine Quad .5 mL IM 6+ MO 2020-05-13 00:00:00 Completed [facility] Influenza Virus Vaccine Quad .5 mL IM 6+ MO 2020-05-13 00:00:00 Completed [facility] Influenza Virus Vaccine Quad .5 mL IM 6+ MO 2020-05-13 00:00:00 Completed [facility] Influenza Virus Vaccine Quad .5 mL IM 6+ MO 2020-05-13 00:00:00 Completed [facility] Influenza Virus Vaccine Quad .5 mL IM 6+ MO 2020-05-13 00:00:00 Completed [facility] Influenza Virus Vaccine Quad .5 mL IM 6+ MO 2020-05-13 00:00:00 Completed [facility] Influenza Virus Vaccine Quad .5 mL IM 6+ MO 2020-05-13 00:00:00 Completed [facility] Influenza Virus Vaccine Quad .5 mL IM 6+ MO 2020-05-13 00:00:00 Completed [facility] Influenza Virus Vaccine Quad .5 mL IM 6+ MO 2020-05-13 00:00:00 Completed [facility] Influenza Virus Vaccine Quad .5 mL IM 6+ MO 2020-05-13 00:00:00 Completed [facility] Influenza Virus Vaccine Quad .5 mL IM 6+ MO 2020-05-13 00:00:00 Completed [facility] Influenza Virus Vaccine Quad .5 mL IM + MO 2020-05-13 00:00:00 Completed [facility] Influenza Virus Vaccine Quad .5 mL IM 6+ MO 2020-05-13 00:00:00 Completed [facility] Influenza Virus Vaccine Quad .5 mL IM 6+ MO 2020-05-13 00:00:00 Completed [facility] Influenza Virus Vaccine Quad .5 mL IM 6+ MO 2020-05-13 00:00:00 Completed [facility] Influenza Virus Vaccine Quad .5 mL IM 6+ MO 2020-05-13 00:00:00 Completed [facility] Influenza Virus Vaccine Quad .5 mL IM 6+ MO 2020-05-13 00:00:00 Completed [facility] Influenza Virus Vaccine Quad .5 mL IM 6+ MO 2020-05-13 00:00:00 Completed [facility] Influenza Virus Vaccine Quad .5 mL IM 6+ MO 2020-05-13 00:00:00 Completed [facility] Influenza Virus Vaccine Quad .5 mL IM 6+ MO 2020-05-13 00:00:00 Completed [facility] Influenza Virus Vaccine Quad .5 mL IM 6+ MO 2020-05-13 00:00:00 Completed [facility] Influenza Virus Vaccine Quad .5 mL IM 6+ MO 2020-05-13 00:00:00 Completed [facility] Influenza Virus Vaccine Quad .5 mL IM 6+ MO 2020-05-13 00:00:00 Completed [facility] Influenza Virus Vaccine Quad .5 mL IM 6+ MO 2020-05-13 00:00:00 Completed [facility] Influenza Virus Vaccine Quad .5 mL IM 6+ MO 2020-05-13 00:00:00 Completed [facility] Influenza Virus Vaccine Quad .5 mL IM 6+ MO 2020-05-13 00:00:00 Completed [facility] Influenza Virus Vaccine Quad .5 mL IM 6+ MO 2020-05-13 00:00:00 Completed [facility] Influenza Virus Vaccine Quad .5 mL IM 6+ MO 2020-05-13 00:00:00 Completed [facility] Influenza Virus Vaccine Quad .5 mL IM 6+ MO 2020-05-13 00:00:00 Completed [facility] Influenza Virus Vaccine Quad .5 mL IM 6+ MO 2020-05-13 00:00:00 Completed [facility] Influenza Virus Vaccine Quad .5 mL IM 6+ MO 2020-05-13 00:00:00 Completed [facility] Influenza Virus Vaccine Quad .5 mL IM 6+ MO 2020-05-13 00:00:00 Completed [facility] Influenza Virus Vaccine Quad .5 mL IM 6+ MO 2020-05-13 00:00:00 Completed [facility] Influenza Virus Vaccine Quad .5 mL IM 6+ MO 2020-05-13 00:00:00 Completed [facility] Influenza Virus Vaccine Quad .5 mL IM 6+ MO 2020-05-13 00:00:00 Completed [facility] Influenza Virus Vaccine Quad .5 mL IM 6+ MO 2020-05-13 00:00:00 Completed [facility] Influenza Virus Vaccine Quad .5 mL IM 6+ MO 2020-05-13 00:00:00 Completed [facility] Influenza Virus Vaccine Quad .5 mL IM 6+ MO 2020-05-13 00:00:00 Completed [facility] Influenza Virus Vaccine Quad .5 mL IM 6+ MO 2020-05-13 00:00:00 Completed [facility] Influenza Virus Vaccine Quad .5 mL IM 6+ MO 2020-05-13 00:00:00 Completed [facility] Influenza Virus Vaccine Quad .5 mL IM 6+ MO 2020-05-13 00:00:00 Completed [facility] Influenza Virus Vaccine Quad .5 mL IM 6+ MO 2020-05-13 00:00:00 Completed [facility] Influenza Virus Vaccine Quad .5 mL IM 6+ MO 2020-05-13 00:00:00 Completed [facility] Influenza Virus Vaccine Quad .5 mL IM 6+ MO 2020-05-13 00:00:00 Completed [facility] Influenza Virus Vaccine Quad .5 mL IM 6+ MO 2020-05-13 00:00:00 Completed [facility] Influenza Virus Vaccine Quad .5 mL IM 6+ MO 2020-05-13 00:00:00 Completed [facility] Influenza Virus Vaccine Quad .5 mL IM 6+ MO 2020-05-13 00:00:00 Completed [facility] Influenza Virus Vaccine Quad .5 mL IM 6+ MO 2020-05-13 00:00:00 Completed [facility] Influenza Virus Vaccine Quad .5 mL IM 6+ MO 2020-05-13 00:00:00 Completed [facility] Influenza Virus Vaccine Quad .5 mL IM 6+ MO 2020-05-13 00:00:00 Completed [facility] Influenza Virus Vaccine Quad .5 mL IM 6+ MO 2020-05-13 00:00:00 Completed [facility] Influenza Virus Vaccine Quad IM 3+ YRS 2017-05-29 00:00:00 Completed [facility] Influenza Virus Vaccine Quad IM 3+ YRS 2017-05-29 00:00:00 Completed [facility] Influenza Virus Vaccine Quad IM 3+ YRS 2017-05-29 00:00:00 Completed [facility] Influenza Virus Vaccine Quad IM 3+ YRS 2017-05-29 00:00:00 Completed [facility] Influenza Virus Vaccine Quad IM 3+ YRS 2017-05-29 00:00:00 Completed [facility] Influenza Virus Vaccine Quad IM 3+ YRS 2017-05-29 00:00:00 Completed [facility] Influenza Virus Vaccine Quad IM 3+ YRS 2017-05-29 00:00:00 Completed [facility] Influenza Virus Vaccine Quad IM 3+ YRS 2017-05-29 00:00:00 Completed [facility] Influenza Virus Vaccine Quad IM 3+ YRS 2017-05-29 00:00:00 Completed [facility] Influenza Virus Vaccine Quad IM 3+ YRS 2017-05-29 00:00:00 Completed [facility] Influenza Virus Vaccine Quad IM 3+ YRS 2017-05-29 00:00:00 Completed [facility] Influenza Virus Vaccine Quad IM 3+ YRS 2017-05-29 00:00:00 Completed [facility] Influenza Virus Vaccine Quad IM 3+ YRS 2017-05-29 00:00:00 Completed [facility] Influenza Virus Vaccine Quad IM 3+ YRS 2017-05-29 00:00:00 Completed [facility] Influenza Virus Vaccine Quad IM 3+ YRS 2017-05-29 00:00:00 Completed [facility] Influenza Virus Vaccine Quad IM 3+ YRS 2017-05-29 00:00:00 Completed [facility] Influenza Virus Vaccine Quad IM 3+ YRS 2017-05-29 00:00:00 Completed [facility] Influenza Virus Vaccine Quad IM 3+ YRS 2017-05-29 00:00:00 Completed [facility] Influenza Virus Vaccine Quad IM 3+ YRS 2017-05-29 00:00:00 Completed [facility] Influenza Virus Vaccine Quad IM 3+ YRS 2017-05-29 00:00:00 Completed [facility] Influenza Virus Vaccine Quad IM 3+ YRS 2017-05-29 00:00:00 Completed [facility] Influenza Virus Vaccine Quad IM 3+ YRS 2017-05-29 00:00:00 Completed [facility] Influenza Virus Vaccine Quad IM 3+ YRS 2017-05-29 00:00:00 Completed [facility] Influenza Virus Vaccine Quad IM 3+ YRS 2017-05-29 00:00:00 Completed [facility] Influenza Virus Vaccine Quad IM 3+ YRS 2017-05-29 00:00:00 Completed [facility] Influenza Virus Vaccine Quad IM 3+ YRS 2017-05-29 00:00:00 Completed [facility] Influenza Virus Vaccine Quad IM 3+ YRS 2017-05-29 00:00:00 Completed [facility] Influenza Virus Vaccine Quad IM 3+ YRS 2017-05-29 00:00:00 Completed [facility] Influenza Virus Vaccine Quad IM 3+ YRS 2017-05-29 00:00:00 Completed [facility] Influenza Virus Vaccine Quad IM 3+ YRS 2017-05-29 00:00:00 Completed [facility] Influenza Virus Vaccine Quad IM 3+ YRS 2017-05-29 00:00:00 Completed [facility] Influenza Virus Vaccine Quad IM 3+ YRS 2017-05-29 00:00:00 Completed [facility] Influenza Virus Vaccine Quad IM 3+ YRS 2017-05-29 00:00:00 Completed [facility] Influenza Virus Vaccine Quad IM 3+ YRS 2017-05-29 00:00:00 Completed [facility] Influenza Virus Vaccine Quad IM 3+ YRS 2017-05-29 00:00:00 Completed [facility] Influenza Virus Vaccine Quad IM 3+ YRS 2017-05-29 00:00:00 Completed [facility] Influenza Virus Vaccine Quad IM 3+ YRS 2017-05-29 00:00:00 Completed [facility] Influenza Virus Vaccine Quad IM 3+ YRS 2017-05-29 00:00:00 Completed [facility] Influenza Virus Vaccine Quad IM 3+ YRS 2017-05-29 00:00:00 Completed [facility] Influenza Virus Vaccine Quad IM 3+ YRS 2017-05-29 00:00:00 Completed [facility] Influenza Virus Vaccine Quad IM 3+ YRS 2017-05-29 00:00:00 Completed [facility] Influenza Virus Vaccine Quad IM 3+ YRS 2017-05-29 00:00:00 Completed [facility] Influenza Virus Vaccine Quad IM 3+ YRS 2017-05-29 00:00:00 Completed [facility] Influenza Virus Vaccine Quad IM 3+ YRS 2017-05-29 00:00:00 Completed [facility] Influenza Virus Vaccine Quad IM 3+ YRS 2017-05-29 00:00:00 Completed [facility] Influenza Virus Vaccine Quad IM 3+ YRS 2017-05-29 00:00:00 Completed [facility] Influenza Virus Vaccine Quad IM 3+ YRS 2017-05-29 00:00:00 Completed [facility] Influenza Virus Vaccine Quad IM 3+ YRS 2017-05-29 00:00:00 Completed [facility] Influenza Virus Vaccine Quad IM 3+ YRS 2017-05-29 00:00:00 Completed [facility] Influenza Virus Vaccine Quad IM 3+ YRS 2017-05-29 00:00:00 Completed [facility] Influenza Virus Vaccine Quad IM 3+ YRS 2017-05-29 00:00:00 Completed [facility] Influenza Virus Vaccine Quad IM 3+ YRS 2017-05-29 00:00:00 Completed [facility] Influenza Virus Vaccine Quad IM 3+ YRS 2017-05-29 00:00:00 Completed [facility] Influenza Virus Vaccine Quad IM 3+ YRS 2017-05-29 00:00:00 Completed [facility] Influenza Virus Vaccine Quad IM 3+ YRS 2017-05-29 00:00:00 Completed [facility] Influenza Virus Vaccine Quad IM 3+ YRS 2017-05-29 00:00:00 Completed [facility] Influenza Virus Vaccine Quad IM 3+ YRS 2017-05-29 00:00:00 Completed [facility] Influenza Virus Vaccine Quad IM 3+ YRS 2017-05-29 00:00:00 Completed [facility] Influenza Virus Vaccine Quad IM 3+ YRS 2017-05-29 00:00:00 Completed [facility] Influenza Virus Vaccine Quad IM 3+ YRS 2017-05-29 00:00:00 Completed [facility] Influenza Virus Vaccine Quad IM 3+ YRS 2017-05-29 00:00:00 Completed [facility] Influenza Virus Vaccine Quad IM 3+ YRS 2017-05-29 00:00:00 Completed [facility] Influenza Virus Vaccine Quad IM 3+ YRS 2017-05-29 00:00:00 Completed [facility] Influenza Virus Vaccine Quad IM 3+ YRS 2017-05-29 00:00:00 Completed [facility] Influenza Virus Vaccine Quad IM 3+ YRS 2017-05-29 00:00:00 Completed [facility] Influenza Virus Vaccine Quad IM 3+ YRS 2017-05-29 00:00:00 Completed [facility] Influenza Virus Vaccine Quad IM 3+ YRS 2017-05-29 00:00:00 Completed [facility] Influenza Virus Vaccine Quad IM 3+ YRS 2017-05-29 00:00:00 Completed [facility] Influenza Virus Vaccine Quad IM 3+ YRS 2017-05-29 00:00:00 Completed [facility] Influenza Virus Vaccine Quad IM 3+ YRS 2017-05-29 00:00:00 Completed [facility] Influenza Virus Vaccine Quad IM 3+ YRS 2017-05-29 00:00:00 Completed [facility] Influenza Virus Vaccine Quad IM 3+ YRS 2017-05-29 00:00:00 Completed [facility] Influenza Virus Vaccine Quad IM 3+ YRS 2017-05-29 00:00:00 Completed [facility] Influenza Virus Vaccine Quad IM 3+ YRS 2017-05-29 00:00:00 Completed [facility] Influenza Virus Vaccine Quad IM 3+ YRS 2017-05-29 00:00:00 Completed [facility] Influenza Virus Vaccine Quad IM 3+ YRS 2017-05-29 00:00:00 Completed [facility] Influenza Virus Vaccine Quad IM 3+ YRS 2017-05-29 00:00:00 Completed [facility] Influenza Virus Vaccine Quad IM 3+ YRS 2017-05-29 00:00:00 Completed [facility] Influenza Virus Vaccine Quad IM 3+ YRS 2017-05-29 00:00:00 Completed [facility] Influenza Virus Vaccine Quad IM 3+ YRS 2017-05-29 00:00:00 Completed [facility] Influenza Virus Vaccine Quad IM 3+ YRS 2017-05-29 00:00:00 Completed [facility] Influenza Virus Vaccine Quad IM 3+ YRS 2017-05-29 00:00:00 Completed [facility] Influenza Virus Vaccine Quad IM 3+ YRS 2017-05-29 00:00:00 Completed [facility] Influenza Virus Vaccine Quad IM 3+ YRS 2017-05-29 00:00:00 Completed [facility] Influenza Virus Vaccine Quad IM 3+ YRS 2017-05-29 00:00:00 Completed [facility] Influenza Virus Vaccine Quad IM 3+ YRS 2017-05-29 00:00:00 Completed [facility] Influenza Virus Vaccine Quad IM 3+ YRS 2017-05-29 00:00:00 Completed [facility] Influenza Virus Vaccine Quad IM 3+ YRS 2017-05-29 00:00:00 Completed [facility] Influenza Virus Vaccine Quad IM 3+ YRS 2017-05-29 00:00:00 Completed [facility] Influenza Virus Vaccine Quad IM 3+ YRS 2017-05-29 00:00:00 Completed [facility] Influenza Virus Vaccine Quad IM 3+ YRS 2017-05-29 00:00:00 Completed [facility] Influenza Virus Vaccine Quad IM 3+ YRS 2017-05-29 00:00:00 Completed [facility] Influenza Virus Vaccine Quad IM 3+ YRS 2017-05-29 00:00:00 Completed [facility] Influenza Virus Vaccine Quad IM 3+ YRS 2017-05-29 00:00:00 Completed [facility] Influenza Virus Vaccine Quad IM 3+ YRS 2017-05-29 00:00:00 Completed [facility] Influenza Virus Vaccine Quad IM 3+ YRS 2017-05-29 00:00:00 Completed [facility] Influenza Virus Vaccine Quad IM 3+ YRS 2017-05-29 00:00:00 Completed [facility] Influenza Virus Vaccine Quad IM 3+ YRS 2017-05-29 00:00:00 Completed [facility] Influenza Virus Vaccine Quad IM 3+ YRS 2017-05-29 00:00:00 Completed [facility] Influenza Virus Vaccine Quad IM 3+ YRS 2017-05-29 00:00:00 Completed [facility] Influenza Virus Vaccine Quad IM 3+ YRS 2017-05-29 00:00:00 Completed [facility] Influenza Virus Vaccine Quad IM 3+ YRS 2017-05-29 00:00:00 Completed [facility] Influenza Virus Vaccine Quad IM 3+ YRS 2017-05-29 00:00:00 Completed [facility] Influenza Virus Vaccine Quad IM 3+ YRS 2017-05-29 00:00:00 Completed [facility] Influenza Virus Vaccine Quad IM 3+ YRS 2017-05-29 00:00:00 Completed [facility] Influenza Virus Vaccine Quad IM 3+ YRS 2017-05-29 00:00:00 Completed [facility] Influenza Virus Vaccine Quad IM 3+ YRS 2017-05-29 00:00:00 Completed [facility] Influenza Virus Vaccine Quad IM 3+ YRS 2017-05-29 00:00:00 Completed [facility] Influenza Virus Vaccine Quad IM 3+ YRS 2017-05-29 00:00:00 Completed [facility] Influenza Virus Vaccine Quad IM 3+ YRS 2017-05-29 00:00:00 Completed [facility] Influenza Virus Vaccine Quad IM 3+ YRS 2017-05-29 00:00:00 Completed [facility] Influenza Virus Vaccine Quad IM 3+ YRS 2017-05-29 00:00:00 Completed [facility] Influenza Virus Vaccine Quad IM 3+ YRS 2017-05-29 00:00:00 Completed [facility] Influenza Virus Vaccine Quad IM 3+ YRS 2017-05-29 00:00:00 Completed [facility] Influenza Virus Vaccine Quad IM 3+ YRS 2017-05-29 00:00:00 Completed [facility] Influenza Virus Vaccine Quad IM 3+ YRS 2017-05-29 00:00:00 Completed [facility] Influenza Virus Vaccine Quad IM 3+ YRS 2017-05-29 00:00:00 Completed [facility] Influenza Virus Vaccine Quad IM 3+ YRS 2017-05-29 00:00:00 Completed [facility] Influenza Virus Vaccine Quad IM 3+ YRS 2017-05-29 00:00:00 Completed [facility] Influenza Virus Vaccine Quad IM 3+ YRS 2017-05-29 00:00:00 Completed [facility] Influenza Virus Vaccine Quad IM 3+ YRS 2017-05-29 00:00:00 Completed [facility] Influenza Virus Vaccine Quad IM 3+ YRS 2017-05-29 00:00:00 Completed [facility] Influenza Virus Vaccine Quad IM 3+ YRS 2017-05-29 00:00:00 Completed [facility] Influenza Virus Vaccine Quad IM 3+ YRS 2017-05-29 00:00:00 Completed [facility] Influenza Virus Vaccine Quad IM 3+ YRS 2017-05-29 00:00:00 Completed [facility] Influenza Virus Vaccine Quad IM 3+ YRS 2017-05-29 00:00:00 Completed [facility] Influenza Virus Vaccine Quad IM 3+ YRS 2017-05-29 00:00:00 Completed [facility] Influenza Virus Vaccine Quad IM 3+ YRS 2017-05-29 00:00:00 Completed [facility] Influenza Virus Vaccine Quad IM 3+ YRS 2017-05-29 00:00:00 Completed [facility] Influenza Virus Vaccine Quad IM 3+ YRS 2017-05-29 00:00:00 Completed [facility] Influenza Virus Vaccine Quad IM 3+ YRS 2017-05-29 00:00:00 Completed [facility] Influenza Virus Vaccine Quad IM 3+ YRS 2017-05-29 00:00:00 Completed [facility] Influenza Virus Vaccine Quad IM 3+ YRS 2017-05-29 00:00:00 Completed [facility] Influenza Virus Vaccine Quad IM 3+ YRS 2017-05-29 00:00:00 Completed [facility] Influenza Virus Vaccine Quad IM 3+ YRS 2017-05-29 00:00:00 Completed [facility] Influenza Virus Vaccine Quad IM 3+ YRS 2017-05-29 00:00:00 Completed [facility] Influenza Virus Vaccine Quad IM 3+ YRS 2017-05-29 00:00:00 Completed [facility] Influenza Virus Vaccine Quad IM 3+ YRS 2017-05-29 00:00:00 Completed [facility] Influenza Virus Vaccine Quad IM 3+ YRS 2017-05-29 00:00:00 Completed [facility] Influenza Virus Vaccine Quad IM 3+ YRS 2017-05-29 00:00:00 Completed [facility] Influenza Virus Vaccine Quad IM 3+ YRS 2017-05-29 00:00:00 Completed [facility] Influenza Virus Vaccine Quad IM 3+ YRS 2017-05-29 00:00:00 Completed [facility] Influenza Virus Vaccine Quad IM 3+ YRS 2017-05-29 00:00:00 Completed [facility] Influenza Virus Vaccine Quad IM 3+ YRS 2017-05-29 00:00:00 Completed [facility] Influenza Virus Vaccine Quad IM 3+ YRS 2017-05-29 00:00:00 Completed [facility] Influenza Virus Vaccine Quad IM 3+ YRS 2017-05-29 00:00:00 Completed [facility] Influenza Virus Vaccine Quad IM 3+ YRS 2017-05-29 00:00:00 Completed [facility] Influenza Virus Vaccine Quad IM 3+ YRS 2017-05-29 00:00:00 Completed [facility] Influenza Virus Vaccine Quad IM 3+ YRS 2017-05-29 00:00:00 Completed [facility] Influenza Virus Vaccine Quad IM 3+ YRS 2017-05-29 00:00:00 Completed [facility] Influenza Virus Vaccine Quad IM 3+ YRS 2017-05-29 00:00:00 Completed [facility] Influenza Virus Vaccine Quad IM 3+ YRS 2017-05-29 00:00:00 Completed [facility] Influenza Virus Vaccine Quad IM 3+ YRS 2017-05-29 00:00:00 Completed [facility] Influenza Virus Vaccine Quad IM 3+ YRS 2017-05-29 00:00:00 Completed [facility] Influenza Virus Vaccine Quad IM 3+ YRS 2017-05-29 00:00:00 Completed [facility] Influenza Virus Vaccine Quad IM 3+ YRS 2017-05-29 00:00:00 Completed [facility] Influenza Virus Vaccine Quad IM 3+ YRS 2017-05-29 00:00:00 Completed [facility] Influenza Virus Vaccine Quad IM 3+ YRS 2017-05-29 00:00:00 Completed [facility] Influenza Virus Vaccine Quad IM 3+ YRS 2017-05-29 00:00:00 Completed [facility] Influenza Virus Vaccine Quad IM 3+ YRS 2017-05-29 00:00:00 Completed [facility] Influenza Virus Vaccine Quad IM 3+ YRS 2017-05-29 00:00:00 Completed [facility] Influenza Virus Vaccine Quad IM 3+ YRS 2017-05-29 00:00:00 Completed [facility] [facility] Influenza Virus Vaccine Quad IM 3+ YRS 2017-05-29 00:00:00 Completed [facility] Influenza Virus Vaccine Quad IM 3+ YRS 2017-05-29 00:00:00 Completed [facility] Influenza Virus Vaccine Quad IM 3+ YRS 2017-05-29 00:00:00 Completed [facility] Influenza Virus Vaccine Quad IM 3+ YRS 2017-05-29 00:00:00 Completed [facility] Influenza Virus Vaccine Quad IM 3+ YRS 2017-05-29 00:00:00 Completed [facility] Influenza Virus Vaccine Quad IM 3+ YRS 2017-05-29 00:00:00 Completed [facility] Influenza Virus Vaccine Quad IM 3+ YRS 2017-05-29 00:00:00 Completed [facility] Influenza Virus Vaccine Quad IM 3+ YRS 2017-05-29 00:00:00 Completed [facility] Influenza Virus Vaccine Quad IM 3+ YRS 2017-05-29 00:00:00 Completed [facility] Influenza Virus Vaccine Quad IM 3+ YRS 2017-05-29 00:00:00 Completed [facility] Influenza Virus Vaccine Quad IM 3+ YRS 2017-05-29 00:00:00 Completed [facility] Influenza Virus Vaccine Quad IM 3+ YRS 2017-05-29 00:00:00 Completed [facility] Influenza Virus Vaccine Quad IM 3+ YRS 2017-05-29 00:00:00 Completed [facility] Influenza Virus Vaccine Quad IM 3+ YRS 2017-05-29 00:00:00 Completed [facility] Influenza Virus Vaccine Quad IM 3+ YRS 2017-05-29 00:00:00 Completed [facility] Influenza Virus Vaccine Quad IM 3+ YRS 2017-05-29 00:00:00 Completed [facility] Influenza Virus Vaccine Quad IM 3+ YRS 2017-05-29 00:00:00 Completed [facility] Influenza Virus Vaccine Quad IM 3+ YRS 2017-05-29 00:00:00 Completed [facility] Influenza Virus Vaccine Quad IM 3+ YRS 2017-05-29 00:00:00 Completed [facility] Influenza Virus Vaccine Quad IM 3+ YRS 2017-05-29 00:00:00 Completed [facility] Influenza Virus Vaccine Quad IM 3+ YRS 2017-05-29 00:00:00 Completed [facility] Influenza Virus Vaccine Quad IM 3+ YRS 2017-05-29 00:00:00 Completed [facility] Influenza Virus Vaccine Quad IM 3+ YRS 2017-05-29 00:00:00 Completed [facility] Influenza Virus Vaccine Quad IM 3+ YRS 2017-05-29 00:00:00 Completed [facility] Influenza Virus Vaccine Quad IM 3+ YRS 2017-05-29 00:00:00 Completed [facility] Influenza Virus Vaccine Quad IM 3+ YRS 2017-05-29 00:00:00 Completed [facility] Influenza Virus Vaccine Quad IM 3+ YRS 2017-05-29 00:00:00 Completed [facility] Influenza Virus Vaccine Quad IM 3+ YRS 2017-05-29 00:00:00 Completed [facility] Influenza Virus Vaccine Quad IM 3+ YRS 2017-05-29 00:00:00 Completed [facility] Influenza Virus Vaccine Quad IM 3+ YRS 2017-05-29 00:00:00 Completed [facility] Influenza Virus Vaccine Quad IM 3+ YRS 2017-05-29 00:00:00 Completed [facility] Influenza Virus Vaccine Quad IM 3+ YRS 2017-05-29 00:00:00 Completed [facility] MMR 2017-04-29 00:00:00 Completed [facility] MMR 2017-04-29 00:00:00 Completed [facility] MMR 2017-04-29 00:00:00 Completed [facility] MMR 2017-04-29 00:00:00 Completed [facility] MMR 2017-04-29 00:00:00 Completed [facility] MMR 2017-04-29 00:00:00 Completed [facility] MMR 2017-04-29 00:00:00 Completed [facility] MMR 2017-04-29 00:00:00 Completed [facility] MMR 2017-04-29 00:00:00 Completed [facility] MMR 2017-04-29 00:00:00 Completed [facility] MMR 2017-04-29 00:00:00 Completed [facility] MMR 2017-04-29 00:00:00 Completed [facility] MMR 2017-04-29 00:00:00 Completed [facility] MMR 2017-04-29 00:00:00 Completed [facility] MMR 2017-04-29 00:00:00 Completed [facility] MMR 2017-04-29 00:00:00 Completed [facility] MMR 2017-04-29 00:00:00 Completed [facility] MMR 2017-04-29 00:00:00 Completed [facility] MMR 2017-04-29 00:00:00 Completed [facility] MMR 2017-04-29 00:00:00 Completed [facility] MMR 2017-04-29 00:00:00 Completed [facility] MMR 2017-04-29 00:00:00 Completed [facility] MMR 2017-04-29 00:00:00 Completed [facility] MMR 2017-04-29 00:00:00 Completed [facility] MMR 2017-04-29 00:00:00 Completed [facility] MMR 2017-04-29 00:00:00 Completed [facility] MMR 2017-04-29 00:00:00 Completed [facility] MMR 2017-04-29 00:00:00 Completed [facility] MMR 2017-04-29 00:00:00 Completed [facility] MMR 2017-04-29 00:00:00 Completed [facility] MMR 2017-04-29 00:00:00 Completed [facility] MMR 2017-04-29 00:00:00 Completed [facility] MMR 2017-04-29 00:00:00 Completed [facility] MMR 2017-04-29 00:00:00 Completed [facility] MMR 2017-04-29 00:00:00 Completed [facility] MMR 2017-04-29 00:00:00 Completed [facility] MMR 2017-04-29 00:00:00 Completed [facility] MMR 2017-04-29 00:00:00 Completed [facility] MMR 2017-04-29 00:00:00 Completed [facility] MMR 2017-04-29 00:00:00 Completed [facility] MMR 2017-04-29 00:00:00 Completed [facility] MMR 2017-04-29 00:00:00 Completed [facility] MMR 2017-04-29 00:00:00 Completed [facility] MMR 2017-04-29 00:00:00 Completed [facility] MMR 2017-04-29 00:00:00 Completed [facility] MMR 2017-04-29 00:00:00 Completed [facility] MMR 2017-04-29 00:00:00 Completed [facility] MMR 2017-04-29 00:00:00 Completed [facility] MMR 2017-04-29 00:00:00 Completed [facility] MMR 2017-04-29 00:00:00 Completed [facility] MMR 2017-04-29 00:00:00 Completed [facility] MMR 2017-04-29 00:00:00 Completed [facility] MMR 2017-04-29 00:00:00 Completed [facility] MMR 2017-04-29 00:00:00 Completed [facility] MMR 2017-04-29 00:00:00 Completed [facility] MMR 2017-04-29 00:00:00 Completed [facility] MMR 2017-04-29 00:00:00 Completed [facility] MMR 2017-04-29 00:00:00 Completed [facility] MMR 2017-04-29 00:00:00 Completed [facility] MMR 2017-04-29 00:00:00 Completed [facility] MMR 2017-04-29 00:00:00 Completed [facility] MMR 2017-04-29 00:00:00 Completed [facility] MMR 2017-04-29 00:00:00 Completed [facility] MMR 2017-04-29 00:00:00 Completed [facility] MMR 2017-04-29 00:00:00 Completed [facility] MMR 2017-04-29 00:00:00 Completed [facility] MMR 2017-04-29 00:00:00 Completed [facility] MMR 2017-04-29 00:00:00 Completed [facility] MMR 2017-04-29 00:00:00 Completed [facility] MMR 2017-04-29 00:00:00 Completed [facility] MMR 2017-04-29 00:00:00 Completed [facility] MMR 2017-04-29 00:00:00 Completed [facility] MMR 2017-04-29 00:00:00 Completed [facility] MMR 2017-04-29 00:00:00 Completed [facility] MMR 2017-04-29 00:00:00 Completed [facility] MMR 2017-04-29 00:00:00 Completed [facility] MMR 2017-04-29 00:00:00 Completed [facility] MMR 2017-04-29 00:00:00 Completed [facility] MMR 2017-04-29 00:00:00 Completed [facility] MMR 2017-04-29 00:00:00 Completed [facility] MMR 2017-04-29 00:00:00 Completed [facility] MMR 2017-04-29 00:00:00 Completed [facility] MMR 2017-04-29 00:00:00 Completed [facility] MMR 2017-04-29 00:00:00 Completed [facility] MMR 2017-04-29 00:00:00 Completed [facility] MMR 2017-04-29 00:00:00 Completed [facility] MMR 2017-04-29 00:00:00 Completed [facility] MMR 2017-04-29 00:00:00 Completed [facility] MMR 2017-04-29 00:00:00 Completed [facility] MMR 2017-04-29 00:00:00 Completed [facility] MMR 2017-04-29 00:00:00 Completed [facility] MMR 2017-04-29 00:00:00 Completed [facility] MMR 2017-04-29 00:00:00 Completed [facility] MMR 2017-04-29 00:00:00 Completed [facility] MMR 2017-04-29 00:00:00 Completed [facility] MMR 2017-04-29 00:00:00 Completed [facility] MMR 2017-04-29 00:00:00 Completed [facility] MMR 2017-04-29 00:00:00 Completed [facility] MMR 2017-04-29 00:00:00 Completed [facility] MMR 2017-04-29 00:00:00 Completed [facility] MMR 2017-04-29 00:00:00 Completed [facility] MMR 2017-04-29 00:00:00 Completed [facility] MMR 2017-04-29 00:00:00 Completed [facility] MMR 2017-04-29 00:00:00 Completed [facility] MMR 2017-04-29 00:00:00 Completed [facility] MMR 2017-04-29 00:00:00 Completed [facility] MMR 2017-04-29 00:00:00 Completed [facility] MMR 2017-04-29 00:00:00 Completed [facility] MMR 2017-04-29 00:00:00 Completed [facility] MMR 2017-04-29 00:00:00 Completed [facility] MMR 2017-04-29 00:00:00 Completed [facility] MMR 2017-04-29 00:00:00 Completed [facility] MMR 2017-04-29 00:00:00 Completed [facility] MMR 2017-04-29 00:00:00 Completed [facility] MMR 2017-04-29 00:00:00 Completed [facility] MMR 2017-04-29 00:00:00 Completed [facility] MMR 2017-04-29 00:00:00 Completed [facility] MMR 2017-04-29 00:00:00 Completed [facility] MMR 2017-04-29 00:00:00 Completed [facility] MMR 2017-04-29 00:00:00 Completed [facility] MMR 2017-04-29 00:00:00 Completed [facility] MMR 2017-04-29 00:00:00 Completed [facility] MMR 2017-04-29 00:00:00 Completed [facility] MMR 2017-04-29 00:00:00 Completed [facility] MMR 2017-04-29 00:00:00 Completed [facility] MMR 2017-04-29 00:00:00 Completed [facility] MMR 2017-04-29 00:00:00 Completed [facility] MMR 2017-04-29 00:00:00 Completed [facility] MMR 2017-04-29 00:00:00 Completed [facility] MMR 2017-04-29 00:00:00 Completed [facility] MMR 2017-04-29 00:00:00 Completed [facility] MMR 2017-04-29 00:00:00 Completed [facility] MMR 2017-04-29 00:00:00 Completed [facility] MMR 2017-04-29 00:00:00 Completed [facility] MMR 2017-04-29 00:00:00 Completed [facility] MMR 2017-04-29 00:00:00 Completed [facility] MMR 2017-04-29 00:00:00 Completed [facility] MMR 2017-04-29 00:00:00 Completed [facility] MMR 2017-04-29 00:00:00 Completed [facility] MMR 2017-04-29 00:00:00 Completed [facility] MMR 2017-04-29 00:00:00 Completed [facility] MMR 2017-04-29 00:00:00 Completed [facility] MMR 2017-04-29 00:00:00 Completed [facility] MMR 2017-04-29 00:00:00 Completed [facility] MMR 2017-04-29 00:00:00 Completed [facility] MMR 2017-04-29 00:00:00 Completed [facility] MMR 2017-04-29 00:00:00 Completed [facility] MMR 2017-04-29 00:00:00 Completed [facility] MMR 2017-04-29 00:00:00 Completed [facility] MMR 2017-04-29 00:00:00 Completed [facility] MMR 2017-04-29 00:00:00 Completed [facility] MMR 2017-04-29 00:00:00 Completed [facility] MMR 2017-04-29 00:00:00 Completed [facility] MMR 2017-04-29 00:00:00 Completed [facility] MMR 2017-04-29 00:00:00 Completed [facility] MMR 2017-04-29 00:00:00 Completed [facility] MMR 2017-04-29 00:00:00 Completed [facility] MMR 2017-04-29 00:00:00 Completed [facility] MMR 2017-04-29 00:00:00 Completed [facility] MMR 2017-04-29 00:00:00 Completed [facility] MMR 2017-04-29 00:00:00 Completed [facility] MMR 2017-04-29 00:00:00 Completed [facility] MMR 2017-04-29 00:00:00 Completed [facility] MMR 2017-04-29 00:00:00 Completed [facility] MMR 2017-04-29 00:00:00 Completed [facility] MMR 2017-04-29 00:00:00 Completed [facility] MMR 2017-04-29 00:00:00 Completed [facility] MMR 2017-04-29 00:00:00 Completed [facility] MMR 2017-04-29 00:00:00 Completed [facility] MMR 2017-04-29 00:00:00 Completed [facility] MMR 2017-04-29 00:00:00 Completed [facility] MMR 2017-04-29 00:00:00 Completed [facility] MMR 2017-04-29 00:00:00 Completed [facility] MMR 2017-04-29 00:00:00 Completed [facility] MMR 2017-04-29 00:00:00 Completed [facility] MMR 2017-04-29 00:00:00 Completed [facility] MMR 2017-04-29 00:00:00 Completed [facility] MMR 2017-04-29 00:00:00 Completed [facility] MMR 2017-04-29 00:00:00 Completed [facility] MMR 2017-04-29 00:00:00 Completed [facility] MMR 2017-04-29 00:00:00 Completed [facility] MMR 2017-04-29 00:00:00 Completed [facility] MMR 2017-04-29 00:00:00 Completed [facility] MMR 2017-04-29 00:00:00 Completed [facility] MMR 2017-04-29 00:00:00 Completed [facility] MMR 2017-04-29 00:00:00 Completed [facility] MMR 2017-04-29 00:00:00 Completed [facility] MMR 2017-04-29 00:00:00 Completed [facility] MMR 2017-04-29 00:00:00 Completed [facility] MMR 2017-04-29 00:00:00 Completed [facility] MMR 2017-04-29 00:00:00 Completed [facility] MMR 2017-04-29 00:00:00 Completed [facility] MMR 2017-04-29 00:00:00 Completed [facility] MMR 2017-04-29 00:00:00 Completed [facility] TDAP 2017-02-28 00:00:00 Completed [facility] TDAP 2017-02-28 00:00:00 Completed [facility] TDAP 2017-02-28 00:00:00 Completed [facility] TDAP 2017-02-28 00:00:00 Completed [facility] TDAP 2017-02-28 00:00:00 Completed [facility] TDAP 2017-02-28 00:00:00 Completed [facility] TDAP 2017-02-28 00:00:00 Completed [facility] TDAP 2017-02-28 00:00:00 Completed [facility] TDAP 2017-02-28 00:00:00 Completed [facility] TDAP 2017-02-28 00:00:00 Completed [facility] TDAP 2017-02-28 00:00:00 Completed [facility] TDAP 2017-02-28 00:00:00 Completed [facility] TDAP 2017-02-28 00:00:00 Completed [facility] TDAP 2017-02-28 00:00:00 Completed [facility] TDAP 2017-02-28 00:00:00 Completed [facility] TDAP 2017-02-28 00:00:00 Completed [facility] TDAP 2017-02-28 00:00:00 Completed [facility] TDAP 2017-02-28 00:00:00 Completed [facility] TDAP 2017-02-28 00:00:00 Completed [facility] TDAP 2017-02-28 00:00:00 Completed [facility] TDAP 2017-02-28 00:00:00 Completed [facility] TDAP 2017-02-28 00:00:00 Completed [facility] TDAP 2017-02-28 00:00:00 Completed [facility] TDAP 2017-02-28 00:00:00 Completed [facility] TDAP 2017-02-28 00:00:00 Completed [facility] TDAP 2017-02-28 00:00:00 Completed [facility] TDAP 2017-02-28 00:00:00 Completed [facility] TDAP 2017-02-28 00:00:00 Completed [facility] TDAP 2017-02-28 00:00:00 Completed [facility] TDAP 2017-02-28 00:00:00 Completed [facility] TDAP 2017-02-28 00:00:00 Completed [facility] TDAP 2017-02-28 00:00:00 Completed [facility] TDAP 2017-02-28 00:00:00 Completed [facility] TDAP 2017-02-28 00:00:00 Completed [facility] TDAP 2017-02-28 00:00:00 Completed [facility] TDAP 2017-02-28 00:00:00 Completed [facility] TDAP 2017-02-28 00:00:00 Completed [facility] TDAP 2017-02-28 00:00:00 Completed [facility] TDAP 2017-02-28 00:00:00 Completed [facility] TDAP 2017-02-28 00:00:00 Completed [facility] TDAP 2017-02-28 00:00:00 Completed [facility] TDAP 2017-02-28 00:00:00 Completed [facility] TDAP 2017-02-28 00:00:00 Completed [facility] TDAP 2017-02-28 00:00:00 Completed [facility] TDAP 2017-02-28 00:00:00 Completed [facility] TDAP 2017-02-28 00:00:00 Completed [facility] TDAP 2017-02-28 00:00:00 [facility] [facility] TDAP 2017-02-28 00[facility]00:00 Completed [facility] TDAP 2017-02-28 00:00:00 Completed [facility] TDAP 2017-02-28 00:00:00 Completed [facility] TDAP 2017-02-28 00:00:00 Completed [facility] TDAP 2017-02-28 00:00:00 Completed [facility] TDAP 2017-02-28 00:00:00 Completed [facility] TDAP 2017-02-28 00:00:00 Completed [facility] TDAP 2017-02-28 00:00:00 Completed [facility] TDAP 2017-02-28 00:00:00 Completed [facility] TDAP 2017-02-28 00:00:00 Completed [facility] TDAP 2017-02-28 00:00:00 Completed [facility] TDAP 2017-02-28 00:00:00 Completed [facility] TDAP 2017-02-28 00:00:00 Completed [facility] TDAP 2017-02-28 00:00:00 Completed [facility] TDAP 2017-02-28 00:00:00 Completed [facility] TDAP 2017-02-28 00:00:00 Completed [facility] TDAP 2017-02-28 00:00:00 Completed [facility] TDAP 2017-02-28 00:00:00 Completed [facility] TDAP 2017-02-28 00:00:00 Completed [facility] TDAP 2017-02-28 00:00:00 Completed [facility] TDAP 2017-02-28 00:00:00 Completed [facility] TDAP 2017-02-28 00:00:00 Completed [facility] TDAP 2017-02-28 00:00:00 Completed [facility] TDAP 2017-02-28 00:00:00 Completed [facility] TDAP 2017-02-28 00:00:00 Completed [facility] TDAP 2017-02-28 00:00:00 Completed [facility] TDAP 2017-02-28 00:00:00 Completed [facility] TDAP 2017-02-28 00:00:00 Completed [facility] TDAP 2017-02-28 00:00:00 Completed [facility] TDAP 2017-02-28 00:00:00 Completed [facility] TDAP 2017-02-28 00:00:00 Completed [facility] TDAP 2017-02-28 00:00:00 Completed [facility] TDAP 2017-02-28 00:00:00 Completed [facility] TDAP 2017-02-28 00:00:00 Completed [facility] TDAP 2017-02-28 00:00:00 Completed [facility] TDAP 2017-02-28 00:00:00 Completed [facility] TDAP 2017-02-28 00:00:00 Completed [facility] TDAP 2017-02-28 00:00:00 Completed [facility] TDAP 2017-02-28 00:00:00 Completed [facility] TDAP 2017-02-28 00:00:00 Completed [facility] TDAP 2017-02-28 00:00:00 Completed [facility] TDAP 2017-02-28 00:00:00 Completed [facility] TDAP 2017-02-28 00:00:00 Completed [facility] TDAP 2017-02-28 00:00:00 Completed [facility] TDAP 2017-02-28 00:00:00 Completed [facility] TDAP 2017-02-28 00:00:00 Completed [facility] TDAP 2017-02-28 00:00:00 Completed [facility] TDAP 2017-02-28 00:00:00 Completed [facility] TDAP 2017-02-28 00:00:00 Completed [facility] TDAP 2017-02-28 00:00:00 Completed [facility] TDAP 2017-02-28 00:00:00 Completed [facility] TDAP 2017-02-28 00:00:00 Completed [facility] TDAP 2017-02-28 00:00:00 Completed [facility] TDAP 2017-02-28 00:00:00 Completed [facility] TDAP 2017-02-28 00:00:00 Completed [facility] TDAP 2017-02-28 00:00:00 Completed [facility] TDAP 2017-02-28 00:00:00 Completed [facility] TDAP 2017-02-28 00:00:00 Completed [facility] TDAP 2017-02-28 00:00:00 Completed [facility] TDAP 2017-02-28 00:00:00 Completed [facility] TDAP 2017-02-28 00:00:00 Completed [facility] TDAP 2017-02-28 00:00:00 Completed [facility] TDAP 2017-02-28 00:00:00 Completed [facility] TDAP 2017-02-28 00:00:00 Completed [facility] TDAP 2017-02-28 00:00:00 Completed [facility] TDAP 2017-02-28 00:00:00 Completed [facility] TDAP 2017-02-28 00:00:00 Completed [facility] TDAP 2017-02-28 00:00:00 Completed [facility] TDAP 2017-02-28 00:00:00 Completed [facility] TDAP 2017-02-28 00:00:00 Completed [facility] TDAP 2017-02-28 00:00:00 Completed [facility] TDAP 2017-02-28 00:00:00 Completed [facility] TDAP 2017-02-28 00:00:00 Completed [facility] TDAP 2017-02-28 00:00:00 Completed [facility] TDAP 2017-02-28 00:00:00 Completed [facility] TDAP 2017-02-28 00:00:00 Completed [facility] TDAP 2017-02-28 00:00:00 Completed [facility] TDAP 2017-02-28 00:00:00 Completed [facility] TDAP 2017-02-28 00:00:00 Completed [facility] TDAP 2017-02-28 00:00:00 Completed [facility] TDAP 2017-02-28 00:00:00 Completed [facility] TDAP 2017-02-28 00:00:00 Completed [facility] TDAP 2017-02-28 00:00:00 Completed [facility] TDAP 2017-02-28 00:00:00 Completed [facility] TDAP 2017-02-28 00:00:00 Completed [facility] TDAP 2017-02-28 00:00:00 Completed [facility] TDAP 2017-02-28 00:00:00 Completed [facility] TDAP 2017-02-28 00:00:00 Completed [facility] TDAP 2017-02-28 00:00:00 Completed [facility] TDAP 2017-02-28 00:00:00 Completed [facility] TDAP 2017-02-28 00:00:00 Completed [facility] TDAP 2017-02-28 00:00:00 Completed [facility] TDAP 2017-02-28 00:00:00 Completed [facility] TDAP 2017-02-28 00:00:00 Completed [facility] TDAP 2017-02-28 00:00:00 Completed [facility] TDAP 2017-02-28 00:00:00 Completed [facility] TDAP 2017-02-28 00:00:00 Completed [facility] TDAP 2017-02-28 00:00:00 Completed [facility] TDAP 2017-02-28 00:00:00 Completed [facility] TDAP 2017-02-28 00:00:00 Completed [facility] TDAP 2017-02-28 00:00:00 Completed [facility] TDAP 2017-02-28 00:00:00 Completed [facility] TDAP 2017-02-28 00:00:00 Completed [facility] TDAP 2017-02-28 00:00:00 Completed [facility] TDAP 2017-02-28 00:00:00 Completed [facility] TDAP 2017-02-28 00:00:00 Completed [facility] TDAP 2017-02-28 00:00:00 Completed [facility] TDAP 2017-02-28 00:00:00 Completed [facility] TDAP 2017-02-28 00:00:00 Completed [facility] TDAP 2017-02-28 00:00:00 Completed [facility] TDAP 2017-02-28 00:00:00 Completed [facility] TDAP 2017-02-28 00:00:00 Completed [facility] TDAP 2017-02-28 00:00:00 Completed [facility] TDAP 2017-02-28 00:00:00 Completed [facility] TDAP 2017-02-28 00:00:00 Completed [facility] TDAP 2017-02-28 00:00:00 Completed [facility] TDAP 2017-02-28 00:00:00 Completed [facility] TDAP 2017-02-28 00:00:00 Completed [facility] TDAP 2017-02-28 00:00:00 Completed [facility] TDAP 2017-02-28 00:00:00 Completed [facility] TDAP 2017-02-28 00:00:00 Completed [facility] TDAP 2017-02-28 00:00:00 Completed [facility] TDAP 2017-02-28 00:00:00 Completed [facility] TDAP 2017-02-28 00:00:00 Completed [facility] TDAP 2017-02-28 00:00:00 Completed [facility] TDAP 2017-02-28 00:00:00 Completed [facility] TDAP 2017-02-28 00:00:00 Completed [facility] TDAP 2017-02-28 00:00:00 Completed [facility] TDAP 2017-02-28 00:00:00 Completed [facility] TDAP 2017-02-28 00:00:00 Completed [facility] TDAP 2017-02-28 00:00:00 Completed [facility] TDAP 2017-02-28 00:00:00 Completed [facility] TDAP 2017-02-28 00:00:00 Completed [facility] TDAP 2017-02-28 00:00:00 Completed [facility] TDAP 2017-02-28 00:00:00 Completed [facility] TDAP 2017-02-28 00:00:00 Completed [facility] TDAP 2017-02-28 00:00:00 Completed [facility] TDAP 2017-02-28 00:00:00 Completed [facility] TDAP 2017-02-28 00:00:00 Completed [facility] TDAP 2017-02-28 00:00:00 Completed [facility] TDAP 2017-02-28 00:00:00 Completed [facility] TDAP 2017-02-28 00:00:00 Completed [facility] TDAP 2017-02-28 00:00:00 Completed [facility] TDAP 2017-02-28 00:00:00 Completed [facility] TDAP 2017-02-28 00:00:00 Completed [facility] TDAP 2017-02-28 00:00:00 Completed [facility] TDAP 2017-02-28 00:00:00 Completed [facility] TDAP 2012-08-26 00:00:00 Completed [facility] TDAP 2012-08-26 00:00:00 Completed [facility] TDAP 2012-08-26 00:00:00 Completed [facility] TDAP 2012-08-26 00:00:00 Completed [facility] TDAP 2012-08-26 00:00:00 Completed [facility] TDAP 2012-08-26 00:00:00 Completed [facility] TDAP 2012-08-26 00:00:00 Completed [facility] TDAP 2012-08-26 00:00:00 Completed [facility] TDAP 2012-08-26 00:00:00 Completed [facility] TDAP 2012-08-26 00:00:00 Completed [facility] TDAP 2012-08-26 00:00:00 Completed [facility] TDAP 2012-08-26 00:00:00 Completed [facility] TDAP 2012-08-26 00:00:00 Completed [facility] TDAP 2012-08-26 00:00:00 Completed [facility] TDAP 2012-08-26 00:00:00 Completed [facility] TDAP 2012-08-26 00:00:00 Completed [facility] TDAP 2012-08-26 00:00:00 Completed [facility] TDAP 2012-08-26 00:00:00 Completed [facility] TDAP 2012-08-26 00:00:00 Completed [facility] TDAP 2012-08-26 00:00:00 Completed [facility] TDAP 2012-08-26 00:00:00 Completed [facility] TDAP 2012-08-26 00:00:00 Completed [facility] TDAP 2012-08-26 00:00:00 Completed [facility] TDAP 2012-08-26 00:00:00 Completed [facility] TDAP 2012-08-26 00:00:00 Completed [facility] TDAP 2012-08-26 00:00:00 Completed [facility] TDAP 2012-08-26 00:00:00 Completed [facility] TDAP 2012-08-26 00:00:00 Completed [facility] TDAP 2012-08-26 00:00:00 Completed [facility] TDAP 2012-08-26 00:00:00 Completed [facility] TDAP 2012-08-26 00:00:00 Completed [facility] TDAP 2012-08-26 00:00:00 Completed [facility] TDAP 2012-08-26 00:00:00 Completed [facility] TDAP 2012-08-26 00:00:00 Completed [facility] TDAP 2012-08-26 00:00:00 Completed [facility] TDAP 2012-08-26 00:00:00 Completed [facility] TDAP 2012-08-26 00:00:00 Completed [facility] TDAP 2012-08-26 00:00:00 Completed [facility] TDAP 2012-08-26 00:00:00 Completed [facility] TDAP 2012-08-26 00:00:00 Completed [facility] TDAP 2012-08-26 00:00:00 Completed [facility] TDAP 2012-08-26 00:00:00 Completed [facility] TDAP 2012-08-26 00:00:00 Completed [facility] TDAP 2012-08-26 00:00:00 Completed [facility] TDAP 2012-08-26 00:00:00 Completed [facility] TDAP 2012-08-26 00:00:00 Completed [facility] TDAP 2012-08-26 00:00:00 Completed [facility] TDAP 2012-08-26 00:00:00 Completed [facility] TDAP 2012-08-26 00:00:00 Completed [facility] TDAP 2012-08-26 00:00:00 Completed [facility] TDAP 2012-08-26 00:00:00 Completed [facility] TDAP 2012-08-26 00:00:00 Completed [facility] TDAP 2012-08-26 00:00:00 Completed [facility] TDAP 2012-08-26 00:00:00 Completed [facility] TDAP 2012-08-26 00:00:00 Completed [facility] TDAP 2012-08-26 00:00:00 Completed [facility] TDAP 2012-08-26 00:00:00 Completed [facility] TDAP 2012-08-26 00:00:00 Completed [facility] TDAP 2012-08-26 00:00:00 Completed [facility] TDAP 2012-08-26 00:00:00 Completed [facility] TDAP 2012-08-26 00:00:00 Completed [facility] TDAP 2012-08-26 00:00:00 Completed [facility] TDAP 2012-08-26 00:00:00 Completed [facility] TDAP 2012-08-26 00:00:00 Completed [facility] TDAP 2012-08-26 00:00:00 Completed [facility] TDAP 2012-08-26 00:00:00 Completed [facility] TDAP 2012-08-26 00:00:00 Completed [facility] TDAP 2012-08-26 00:00:00 Completed [facility] TDAP 2012-08-26 00:00:00 Completed [facility] TDAP 2012-08-26 00:00:00 Completed [facility] TDAP 2012-08-26 00:00:00 Completed [facility] TDAP 2012-08-26 00:00:00 Completed [facility] TDAP 2012-08-26 00:00:00 Completed [facility] TDAP 2012-08-26 00:00:00 Completed [facility] TDAP 2012-08-26 00:00:00 Completed [facility] TDAP 2012-08-26 00:00:00 Completed [facility] TDAP 2012-08-26 00:00:00 Completed [facility] TDAP 2012-08-26 00:00:00 Completed [facility] TDAP 2012-08-26 00:00:00 Completed [facility] TDAP 2012-08-26 00:00:00 Completed [facility] TDAP 2012-08-26 00:00:00 Completed [facility] TDAP 2012-08-26 00:00:00 Completed [facility] TDAP 2012-08-26 00:00:00 Completed [facility] TDAP 2012-08-26 00:00:00 Completed [facility] TDAP 2012-08-26 00:00:00 Completed [facility] TDAP 2012-08-26 00:00:00 Completed [facility] TDAP 2012-08-26 00:00:00 Completed [facility] TDAP 2012-08-26 00:00:00 Completed [facility] TDAP 2012-08-26 00:00:00 Completed [facility] TDAP 2012-08-26 00:00:00 Completed [facility] TDAP 2012-08-26 00:00:00 Completed [facility] TDAP 2012-08-26 00:00:00 Completed [facility] TDAP 2012-08-26 00:00:00 Completed [facility] TDAP 2012-08-26 00:00:00 Completed [facility] TDAP 2012-08-26 00:00:00 Completed [facility] TDAP 2012-08-26 00:00:00 Completed [facility] TDAP 2012-08-26 00:00:00 Completed [facility] TDAP 2012-08-26 00:00:00 Completed [facility] TDAP 2012-08-26 00:00:00 Completed [facility] TDAP 2012-08-26 00:00:00 Completed [facility] TDAP 2012-08-26 00:00:00 Completed [facility] TDAP 2012-08-26 00:00:00 Completed [facility] TDAP 2012-08-26 00:00:00 Completed [facility] TDAP 2012-08-26 00:00:00 Completed [facility] TDAP 2012-08-26 00:00:00 Completed [facility] TDAP 2012-08-26 00:00:00 Completed [facility] TDAP 2012-08-26 00:00:00 Completed [facility] TDAP 2012-08-26 00:00:00 Completed [facility] TDAP 2012-08-26 00:00:00 Completed [facility] TDAP 2012-08-26 00:00:00 Completed [facility] TDAP 2012-08-26 00:00:00 Completed [facility] TDAP 2012-08-26 00:00:00 Completed [facility] TDAP 2012-08-26 00:00:00 Completed [facility] TDAP 2012-08-26 00:00:00 Completed [facility] TDAP 2012-08-26 00:00:00 Completed [facility] TDAP 2012-08-26 00:00:00 Completed [facility] TDAP 2012-08-26 00:00:00 Completed [facility] TDAP 2012-08-26 00:00:00 Completed [facility] TDAP 2012-08-26 00:00:00 Completed [facility] TDAP 2012-08-26 00:00:00 Completed [facility] TDAP 2012-08-26 00:00:00 Completed [facility] TDAP 2012-08-26 00:00:00 Completed [facility] TDAP 2012-08-26 00:00:00 Completed [facility] TDAP 2012-08-26 00:00:00 Completed [facility] TDAP 2012-08-26 00:00:00 Completed [facility] TDAP 2012-08-26 00:00:00 Completed [facility] TDAP 2012-08-26 00:00:00 Completed [facility] TDAP 2012-08-26 00:00:00 Completed [facility] TDAP 2012-08-26 00:00:00 Completed [facility] TDAP 2012-08-26 00:00:00 Completed [facility] TDAP 2012-08-26 00:00:00 Completed [facility] TDAP 2012-08-26 00:00:00 Completed [facility] TDAP 2012-08-26 00:00:00 Completed [facility] TDAP 2012-08-26 00:00:00 Completed [facility] TDAP 2012-08-26 00:00:00 Completed [facility] TDAP 2012-08-26 00:00:00 Completed [facility] TDAP 2012-08-26 00:00:00 Completed [facility] TDAP 2012-08-26 00:00:00 Completed [facility] TDAP 2012-08-26 00:00:00 Completed [facility] TDAP 2012-08-26 00:00:00 Completed [facility] TDAP 2012-08-26 00:00:00 Completed [facility] TDAP 2012-08-26 00:00:00 Completed [facility] TDAP 2012-08-26 00:00:00 Completed [facility] TDAP 2012-08-26 00:00:00 Completed [facility] TDAP 2012-08-26 00:00:00 Completed [facility] TDAP 2012-08-26 00:00:00 Completed [facility] TDAP 2012-08-26 00:00:00 Completed [facility] TDAP 2012-08-26 00:00:00 Completed [facility] TDAP 2012-08-26 00:00:00 Completed [facility] TDAP 2012-08-26 00:00:00 Completed [facility] TDAP 2012-08-26 00:00:00 Completed [facility] TDAP 2012-08-26 00:00:00 Completed [facility] TDAP 2012-08-26 00:00:00 Completed [facility] TDAP 2012-08-26 00:00:00 Completed [facility] TDAP 2012-08-26 00:00:00 Completed [facility] TDAP 2012-08-26 00:00:00 Completed [facility] TDAP 2012-08-26 00:00:00 Completed [facility] TDAP 2012-08-26 00:00:00 Completed [facility] TDAP 2012-08-26 00:00:00 Completed [facility] TDAP 2012-08-26 00:00:00 Completed [facility] TDAP 2012-08-26 00:00:00 Completed [facility] TDAP 2012-08-26 00:00:00 Completed [facility] TDAP 2012-08-26 00:00:00 Completed [facility] TDAP 2012-08-26 00:00:00 Completed [facility] TDAP 2012-08-26 00:00:00 Completed [facility] TDAP 2012-08-26 00:00:00 Completed [facility] TDAP 2012-08-26 00:00:00 Completed [facility] TDAP 2012-08-26 00:00:00 Completed [facility] TDAP 2012-08-26 00:00:00 Completed [facility] TDAP 2012-08-26 00:00:00 Completed [facility] TDAP 2012-08-26 00:00:00 Completed [facility] TDAP 2012-08-26 00:00:00 Completed [facility] TDAP 2012-08-26 00:00:00 Completed [facility] TDAP 2012-08-26 00:00:00 Completed [facility] TDAP 2012-08-26 00:00:00 Completed [facility] TDAP 2012-08-26 00:00:00 Completed [facility] TDAP 2012-08-26 00:00:00 Completed [facility] TDAP 2012-08-26 00:00:00 Completed [facility] TDAP 2012-08-26 00:00:00 Completed [facility] TDAP 2012-08-26 00:00:00 Completed [facility] TDAP 2012-08-26 00:00:00 Completed [facility] TDAP 2012-08-26 00:00:00 Completed [facility] TDAP 2012-08-26 00:00:00 Completed [facility] TDAP 2012-08-26 00:00:00 Completed [facility] TDAP 2012-08-26 00:00:00 Completed [facility] TDAP 2012-08-26 00:00:00 Completed [facility] TDAP 2012-08-26 00:00:00 Completed [facility] TDAP 2012-08-26 00:00:00 Completed [facility] TDAP 2012-08-26 00:00:00 Completed [facility] TDAP 2012-08-26 00:00:00 Completed [facility] TDAP 2012-08-26 00:00:00 Completed [facility] TDAP 2012-08-26 00:00:00 Completed [facility] TDAP 2012-08-26 00:00:00 Completed [facility] TDAP 2012-08-26 00:00:00 Completed [facility] TDAP Unknown Completed [facility] MMR Unknown Completed [facility] Influenza Virus Vaccine Quad IM 3+ YRS Unknown Completed [facility] Influenza Virus Vaccine Quad .5 mL IM 6+ MO (FLUZONE/FLULAVAL/F LUARIX) Unknown Completed [facility] Pneumococcal Polysaccharide, PPSV23 (PNEUMOVAX) Unknown Completed [facility] TDAP Unknown Completed [facility] Influenza Virus Vaccine Quad .5 mL IM 6+ MO (FLUZONE/FLULAVAL/F LUARIX) Unknown Completed [facility] Influenza Virus Vaccine Unknown Completed [facility] Influenza Virus Vaccine Quad .5 mL IM 6+ MO (FLUZONE/FLULAVAL/F LUARIX) Unknown Completed [facility] TDAP Unknown Completed [facility] MMR Unknown Completed [facility] Influenza Virus Vaccine Quad IM 3+ YRS Unknown Completed [facility] Influenza Virus Vaccine Quad .5 mL IM 6+ MO (FLUZONE/FLULAVAL/F LUARIX) Unknown Completed [facility] Pneumococcal Polysaccharide, PPSV23 (PNEUMOVAX) Unknown Completed [facility] TDAP Unknown Completed [facility] Influenza Virus Vaccine Quad .5 mL IM 6+ MO (FLUZONE/FLULAVAL/F LUARIX) Unknown Completed [facility] Influenza Virus Vaccine Unknown Completed [facility] Influenza Virus Vaccine Quad .5 mL IM 6+ MO (FLUZONE/FLULAVAL/F LUARIX) Unknown Completed [facility] TDAP Unknown Completed [facility] MMR Unknown Completed [facility] Influenza Virus Vaccine Quad IM 3+ YRS Unknown Completed [facility] Influenza Virus Vaccine Quad .5 mL IM 6+ MO (FLUZONE/FLULAVAL/F LUARIX) Unknown Completed [facility] Pneumococcal Polysaccharide, PPSV23 (PNEUMOVAX) Unknown Completed [facility] TDAP Unknown Completed [facility] Influenza Virus Vaccine Quad .5 mL IM 6+ MO (FLUZONE/FLULAVAL/F LUARIX) Unknown Completed [facility] Influenza Virus Vaccine Unknown Completed [facility] Influenza Virus Vaccine Quad .5 mL IM 6+ MO (FLUZONE/FLULAVAL/F LUARIX) Unknown Completed [facility] TDAP Unknown Completed [facility] MMR Unknown Completed [facility] Influenza Virus Vaccine Quad IM 3+ YRS Unknown Completed [facility] Influenza Virus Vaccine Quad .5 mL IM 6+ MO (FLUZONE/FLULAVAL/F LUARIX) Unknown Completed [facility] Pneumococcal Polysaccharide, PPSV23 (PNEUMOVAX) Unknown Completed [facility] TDAP Unknown Completed [facility] Influenza Virus Vaccine Quad .5 mL IM 6+ MO (FLUZONE/FLULAVAL/F LUARIX) Unknown Completed [facility] Influenza Virus Vaccine Unknown Completed [facility] Influenza Virus Vaccine Quad .5 mL IM 6+ MO (FLUZONE/FLULAVAL/F LUARIX) Unknown Completed [facility] TDAP Unknown Completed [facility] MMR Unknown Completed [facility] Influenza Virus Vaccine Quad IM 3+ YRS Unknown Completed [facility] Influenza Virus Vaccine Quad .5 mL IM 6+ MO (FLUZONE/FLULAVAL/F LUARIX) Unknown Completed [facility] Pneumococcal Polysaccharide, PPSV23 (PNEUMOVAX) Unknown Completed [facility] TDAP Unknown Completed [facility] Influenza Virus Vaccine Quad .5 mL IM 6+ MO (FLUZONE/FLULAVAL/F LUARIX) Unknown Completed [facility] Influenza Virus Vaccine Unknown Completed [facility] Influenza Virus Vaccine Quad .5 mL IM 6+ MO (FLUZONE/FLULAVAL/F LUARIX) Unknown Completed [facility] TDAP Unknown Completed [facility] MMR Unknown Completed [facility] Influenza Virus Vaccine Quad IM 3+ YRS Unknown Completed [facility] Influenza Virus Vaccine Quad .5 mL IM 6+ MO (FLUZONE/FLULAVAL/F LUARIX) Unknown Completed [facility] Pneumococcal Polysaccharide, PPSV23 (PNEUMOVAX) Unknown Completed [facility] TDAP Unknown Completed [facility] Influenza Virus Vaccine Quad .5 mL IM 6+ MO (FLUZONE/FLULAVAL/F LUARIX) Unknown Completed [facility] Influenza Virus Vaccine Unknown Completed [facility] Influenza Virus Vaccine Quad .5 mL IM 6+ MO (FLUZONE/FLULAVAL/F LUARIX) Unknown Completed [facility] TDAP Unknown Completed [facility] MMR Unknown Completed [facility] Influenza Virus Vaccine Quad IM 3+ YRS Unknown Completed [facility] Influenza Virus Vaccine Quad .5 mL IM 6+ MO (FLUZONE/FLULAVAL/F LUARIX) Unknown Completed [facility] Pneumococcal Polysaccharide, PPSV23 (PNEUMOVAX) Unknown Completed [facility] TDAP Unknown Completed [facility] Influenza Virus Vaccine Quad .5 mL IM 6+ MO (FLUZONE/FLULAVAL/F LUARIX) Unknown Completed [facility] Influenza Virus Vaccine Unknown Completed [facility] Influenza Virus Vaccine Quad .5 mL IM 6+ MO (FLUZONE/FLULAVAL/F LUARIX) Unknown Completed [facility] TDAP Unknown Completed [facility] MMR Unknown Completed [facility] Influenza Virus Vaccine Quad IM 3+ YRS Unknown Completed [facility] Influenza Virus Vaccine Quad .5 mL IM 6+ MO (FLUZONE/FLULAVAL/F LUARIX) Unknown Completed [facility] Pneumococcal Polysaccharide, PPSV23 (PNEUMOVAX) Unknown Completed [facility] TDAP Unknown Completed [facility] Influenza Virus Vaccine Quad .5 mL IM 6+ MO (FLUZONE/FLULAVAL/F LUARIX) Unknown Completed [facility] Influenza Virus Vaccine Unknown Completed [facility] Influenza Virus Vaccine Quad .5 mL IM 6+ MO (FLUZONE/FLULAVAL/F LUARIX) Unknown Completed [facility] TDAP Unknown Completed [facility] MMR Unknown Completed [facility] Influenza Virus Vaccine Quad IM 3+ YRS Unknown Completed [facility] Influenza Virus Vaccine Quad .5 mL IM 6+ MO (FLUZONE/FLULAVAL/F LUARIX) Unknown Completed [facility] Pneumococcal Polysaccharide, PPSV23 (PNEUMOVAX) Unknown Completed [facility] TDAP Unknown Completed [facility] Influenza Virus Vaccine Quad .5 mL IM 6+ MO (FLUZONE/FLULAVAL/F LUARIX) Unknown Completed [facility] Influenza Virus Vaccine Unknown Completed [facility] Influenza Virus Vaccine Quad .5 mL IM 6+ MO (FLUZONE/FLULAVAL/F LUARIX) Unknown Completed [facility] TDAP Unknown Completed [facility] MMR Unknown Completed [facility] Influenza Virus Vaccine Quad IM 3+ YRS Unknown Completed [facility] Influenza Virus Vaccine Quad .5 mL IM 6+ MO (FLUZONE/FLULAVAL/F LUARIX) Unknown Completed [facility] Pneumococcal Polysaccharide, PPSV23 (PNEUMOVAX) Unknown Completed [facility] TDAP Unknown Completed [facility] Influenza Virus Vaccine Quad .5 mL IM 6+ MO (FLUZONE/FLULAVAL/F LUARIX) Unknown Completed [facility] Influenza Virus Vaccine Unknown Completed [facility] Influenza Virus Vaccine Quad .5 mL IM 6+ MO (FLUZONE/FLULAVAL/F LUARIX) Unknown Completed [facility] TDAP Unknown Completed [facility] MMR Unknown Completed [facility] Influenza Virus Vaccine Quad IM 3+ YRS Unknown Completed [facility] Influenza Virus Vaccine Quad .5 mL IM 6+ MO (FLUZONE/FLULAVAL/F LUARIX) Unknown Completed [facility] Pneumococcal Polysaccharide, PPSV23 (PNEUMOVAX) Unknown Completed [facility] TDAP Unknown Completed [facility] Influenza Virus Vaccine Quad .5 mL IM 6+ MO (FLUZONE/FLULAVAL/F LUARIX) Unknown Completed [facility] Influenza Virus Vaccine Unknown Completed [facility] Influenza Virus Vaccine Quad .5 mL IM 6+ MO (FLUZONE/FLULAVAL/F LUARIX) Unknown Completed [facility] TDAP Unknown Completed [facility] MMR Unknown Completed [facility] Influenza Virus Vaccine Quad IM 3+ YRS Unknown Completed [facility] Influenza Virus Vaccine Quad .5 mL IM 6+ MO (FLUZONE/FLULAVAL/F LUARIX) Unknown Completed [facility] Pneumococcal Polysaccharide, PPSV23 (PNEUMOVAX) Unknown Completed [facility] TDAP Unknown Completed [facility] Influenza Virus Vaccine Quad .5 mL IM 6+ MO (FLUZONE/FLULAVAL/F LUARIX) Unknown Completed [facility] Influenza Virus Vaccine Unknown Completed [facility] Influenza Virus Vaccine Quad .5 mL IM 6+ MO (FLUZONE/FLULAVAL/F LUARIX) Unknown Completed [facility] TDAP Unknown Completed [facility] MMR Unknown Completed [facility] Influenza Virus Vaccine Quad IM 3+ YRS Unknown Completed [facility] Influenza Virus Vaccine Quad .5 mL IM 6+ MO (FLUZONE/FLULAVAL/F LUARIX) Unknown Completed [facility] Pneumococcal Polysaccharide, PPSV23 (PNEUMOVAX) Unknown Completed [facility] TDAP Unknown Completed [facility] Influenza Virus Vaccine Quad .5 mL IM 6+ MO (FLUZONE/FLULAVAL/F LUARIX) Unknown Completed [facility] TDAP Unknown Completed [facility] MMR Unknown Completed [facility] Influenza Virus Vaccine Quad IM 3+ YRS Unknown Completed [facility] Influenza Virus Vaccine Quad .5 mL IM 6+ MO (FLUZONE/FLULAVAL/F LUARIX) Unknown Completed [facility] Pneumococcal Polysaccharide, PPSV23 (PNEUMOVAX) Unknown Completed [facility] TDAP Unknown Completed [facility] Influenza Virus Vaccine Quad .5 mL IM 6+ MO (FLUZONE/FLULAVAL/F LUARIX) Unknown Completed [facility] TDAP Unknown Completed [facility] MMR Unknown Completed [facility] Influenza Virus Vaccine Quad IM 3+ YRS Unknown Completed [facility] Influenza Virus Vaccine Quad .5 mL IM 6+ MO (FLUZONE/FLULAVAL/F LUARIX) Unknown Completed [facility] Pneumococcal Polysaccharide, PPSV23 (PNEUMOVAX) Unknown Completed [facility] TDAP Unknown Completed [facility] Influenza Virus Vaccine Quad .5 mL IM 6+ MO (FLUZONE/FLULAVAL/F LUARIX) Unknown Completed [facility] TDAP Unknown Completed [facility] MMR Unknown Completed [facility] Influenza Virus Vaccine Quad IM 3+ YRS Unknown Completed [facility] Influenza Virus Vaccine Quad .5 mL IM 6+ MO (FLUZONE/FLULAVAL/F LUARIX) Unknown Completed [facility] Pneumococcal Polysaccharide, PPSV23 (PNEUMOVAX) Unknown Completed [facility] TDAP Unknown Completed [facility] Influenza Virus Vaccine Quad .5 mL IM 6+ MO (FLUZONE/FLULAVAL/F LUARIX) Unknown Completed [facility] TDAP Unknown Completed [facility] MMR Unknown Completed [facility] Influenza Virus Vaccine Quad IM 3+ YRS Unknown Completed [facility] Influenza Virus Vaccine Quad .5 mL IM 6+ MO (FLUZONE/FLULAVAL/F LUARIX) Unknown Completed [facility] Pneumococcal Polysaccharide, PPSV23 (PNEUMOVAX) Unknown Completed [facility] TDAP Unknown Completed [facility] Influenza Virus Vaccine Quad .5 mL IM 6+ MO (FLUZONE/FLULAVAL/F LUARIX) Unknown Completed [facility] TDAP Unknown Completed [facility] MMR Unknown Completed [facility] Influenza Virus Vaccine Quad IM 3+ YRS Unknown Completed [facility] Influenza Virus Vaccine Quad .5 mL IM 6+ MO (FLUZONE/FLULAVAL/F LUARIX) Unknown Completed [facility] Pneumococcal Polysaccharide, PPSV23 (PNEUMOVAX) Unknown Completed [facility] TDAP Unknown Completed [facility] TDAP Unknown Completed [facility] MMR Unknown Completed [facility] Influenza Virus Vaccine Quad IM 3+ YRS Unknown Completed [facility] Influenza Virus Vaccine Quad .5 mL IM 6+ MO (FLUZONE/FLULAVAL/F LUARIX) Unknown Completed [facility] Pneumococcal Polysaccharide, PPSV23 (PNEUMOVAX) Unknown Completed [facility] TDAP Unknown Completed [facility] TDAP Unknown Completed [facility] MMR Unknown Completed [facility] Influenza Virus Vaccine Quad IM 3+ YRS Unknown Completed [facility] Influenza Virus Vaccine Quad .5 mL IM 6+ MO (FLUZONE/FLULAVAL/F LUARIX) Unknown Completed [facility] Pneumococcal Polysaccharide, PPSV23 (PNEUMOVAX) Unknown Completed [facility] TDAP Unknown Completed [facility] TDAP Unknown Completed [facility] MMR Unknown Completed [facility] Influenza Virus Vaccine Quad IM 3+ YRS Unknown Completed [facility] Influenza Virus Vaccine Quad .5 mL IM 6+ MO (FLUZONE/FLULAVAL/F LUARIX) Unknown Completed [facility] Pneumococcal Polysaccharide, PPSV23 (PNEUMOVAX) Unknown Completed [facility] TDAP Unknown Completed [facility] TDAP Unknown Completed [facility] MMR Unknown Completed [facility] Influenza Virus Vaccine Quad IM 3+ YRS Unknown Completed [facility] Influenza Virus Vaccine Quad .5 mL IM 6+ MO (FLUZONE/FLULAVAL/F LUARIX) Unknown Completed [facility] Pneumococcal Polysaccharide, PPSV23 (PNEUMOVAX) Unknown Completed [facility] TDAP Unknown Completed [facility] TDAP Unknown Completed [facility] MMR Unknown Completed [facility] Influenza Virus Vaccine Quad IM 3+ YRS Unknown Completed [facility] Influenza Virus Vaccine Quad .5 mL IM 6+ MO (FLUZONE/FLULAVAL/F LUARIX) Unknown Completed [facility] Pneumococcal Polysaccharide, PPSV23 (PNEUMOVAX) Unknown Completed [facility] TDAP Unknown Completed [facility] TDAP Unknown Completed [facility] MMR Unknown Completed [facility] Influenza Virus Vaccine Quad IM 3+ YRS Unknown Completed [facility] Influenza Virus Vaccine Quad .5 mL IM 6+ MO (FLUZONE/FLULAVAL/F LUARIX) Unknown Completed [facility] Pneumococcal Polysaccharide, PPSV23 (PNEUMOVAX) Unknown Completed [facility] TDAP Unknown Completed [facility] TDAP Unknown Completed [facility] MMR Unknown Completed [facility] Influenza Virus Vaccine Quad IM 3+ YRS Unknown Completed [facility] Influenza Virus Vaccine Quad .5 mL IM 6+ MO (FLUZONE/FLULAVAL/F LUARIX) Unknown Completed [facility] TDAP Unknown [facility] [facility] [place]AP Unknown Completed [facility] [place] MMR Unknown Completed [facility] [place] Influenza Virus Vaccine Quad IM 3+ YRS Unknown Completed [facility] [place] Influenza Virus Vaccine Quad .5 mL IM 6+ MO (FLUZONE/FLULAVAL/F LUARIX) Unknown Completed [facility] [place] TDAP Unknown Completed [facility] TDAP Unknown Completed [facility] MMR Unknown Completed [facility] [place] Influenza Virus Vaccine Quad IM 3+ YRS Unknown Completed [facility] [place] Influenza Virus Vaccine Quad .5 mL IM 6+ MO (FLUZONE/FLULAVAL/F LUARIX) Unknown Completed [facility] [place] TDAP Unknown Completed [facility] TDAP Unknown Completed [facility] [place] MMR Unknown Completed [facility] [place] Influenza Virus Vaccine Quad IM 3+ YRS Unknown Completed [facility] TDAP Unknown Completed [facility] TDAP Unknown Completed [facility] MMR Unknown Completed [facility] [place] Influenza Virus Vaccine Quad IM 3+ YRS Unknown Completed [facility] [place] Influenza Virus Vaccine Quad .5 mL IM 6+ MO (FLUZONE/FLULAVAL/F LUARIX) Unknown Completed [facility] [place] Pneumococcal Polysaccharide, PPSV23 (PNEUMOVAX) Unknown Completed [facility] TDAP Unknown Completed [facility] [place] Influenza Virus Vaccine Quad .5 mL IM 6+ MO (FLUZONE/FLULAVAL/F LUARIX) Unknown Completed [facility] [place] Influenza Virus Vaccine Unknown Completed [facility] [place] Influenza Virus Vaccine Quad .5 mL IM 6+ MO (FLUZONE/FLULAVAL/F LUARIX) Unknown Completed [facility] [place] TDAP Unknown Completed [facility] [place] MMR Unknown Completed [facility] [place] Influenza Virus Vaccine Quad IM 3+ YRS Unknown Completed [facility] [place] Influenza Virus Vaccine Quad .5 mL IM 6+ MO (FLUZONE/FLULAVAL/F LUARIX) Unknown Completed [facility] [place] Pneumococcal Polysaccharide, PPSV23 (PNEUMOVAX) Unknown Completed [facility] TDAP Unknown Completed [facility] [place] Influenza Virus Vaccine Quad .5 mL IM 6+ MO (FLUZONE/FLULAVAL/F LUARIX) Unknown Completed [facility] [place] Influenza Virus Vaccine Unknown Completed [facility] [place] Influenza Virus Vaccine Quad .5 mL IM 6+ MO (FLUZONE/FLULAVAL/F LUARIX) Unknown Completed [facility] [place] TDAP Unknown Completed [facility] [place] MMR Unknown Completed [facility] [place] Influenza Virus Vaccine Quad IM 3+ YRS Unknown Completed [facility] [place] Influenza Virus Vaccine Quad .5 mL IM 6+ MO (FLUZONE/FLULAVAL/F LUARIX) Unknown Completed [facility] [place] Pneumococcal Polysaccharide, PPSV23 (PNEUMOVAX) Unknown Completed [facility] TDAP Unknown Completed [facility] [place] Influenza Virus Vaccine Quad .5 mL IM 6+ MO (FLUZONE/FLULAVAL/F LUARIX) Unknown Completed [facility] [place] Influenza Virus Vaccine Unknown Completed [facility] [place] Influenza Virus Vaccine Quad .5 mL IM 6+ MO (FLUZONE/FLULAVAL/F LUARIX) Unknown Completed [facility] [place] TDAP Unknown Completed [facility] MMR Unknown Completed [facility] [place] Influenza Virus Vaccine Quad IM 3+ YRS Unknown Completed [facility] [place] Influenza Virus Vaccine Quad .5 mL IM 6+ MO (FLUZONE/FLULAVAL/F LUARIX) Unknown Completed [facility] [place] Pneumococcal Polysaccharide, PPSV23 (PNEUMOVAX) Unknown Completed [facility] TDAP Unknown Completed [facility] [place] Influenza Virus Vaccine Quad .5 mL IM 6+ MO (FLUZONE/FLULAVAL/F LUARIX) Unknown Completed [facility] [place] Influenza Virus Vaccine Unknown Completed [facility] [place] Influenza Virus Vaccine Quad .5 mL IM 6+ MO (FLUZONE/FLULAVAL/F LUARIX) Unknown Completed [facility] [place] TDAP Unknown Completed [facility] [place] MMR Unknown Completed [facility] [place] Influenza Virus Vaccine Quad IM 3+ YRS Unknown Completed [facility] [place] Influenza Virus Vaccine Quad .5 mL IM 6+ MO (FLUZONE/FLULAVAL/F LUARIX) Unknown Completed [facility] [place] Pneumococcal Polysaccharide, PPSV23 (PNEUMOVAX) Unknown Completed [facility] TDAP Unknown Completed [facility] [place] Influenza Virus Vaccine Quad .5 mL IM 6+ MO (FLUZONE/FLULAVAL/F LUARIX) Unknown Completed [facility] [place] Influenza Virus Vaccine Unknown Completed [facility] [place] Influenza Virus Vaccine Quad .5 mL IM 6+ MO (FLUZONE/FLULAVAL/F LUARIX) Unknown Completed [facility] [place] TDAP Unknown Completed [facility] [place] MMR Unknown Completed [facility] [place] Influenza Virus Vaccine Quad IM 3+ YRS Unknown Completed [facility] [place] Influenza Virus Vaccine Quad .5 mL IM 6+ MO (FLUZONE/FLULAVAL/F LUARIX) Unknown Completed [facility] [place] Pneumococcal Polysaccharide, PPSV23 (PNEUMOVAX) Unknown Completed [facility] TDAP Unknown Completed [facility] [place] Influenza Virus Vaccine Quad .5 mL IM 6+ MO (FLUZONE/FLULAVAL/F LUARIX) Unknown Completed [facility] [place] Influenza Virus Vaccine Unknown Completed [facility] [place] Influenza Virus Vaccine Quad .5 mL IM 6+ MO (FLUZONE/FLULAVAL/F LUARIX) Unknown Completed [facility] [place] Pneumococcal Polysaccharide, PPSV23 (PNEUMOVAX) Unknown Completed [facility] Influenza Virus Vaccine Quad IM, Preserv and ABX Free 6 MO-64 YRS (FLUCELVAX) Unknown Completed [facility] [place] TDAP Unknown Completed [facility] [place] MMR Unknown Completed [facility] [place] Influenza Virus Vaccine Quad IM 3+ YRS Unknown Completed [facility] [place] Influenza Virus Vaccine Quad .5 mL IM 6+ MO (FLUZONE/FLULAVAL/F LUARIX) Unknown Completed [facility] [place] Pneumococcal Polysaccharide, PPSV23 (PNEUMOVAX) Unknown Completed [facility] TDAP Unknown Completed [facility] [place] Influenza Virus Vaccine Quad .5 mL IM 6+ MO (FLUZONE/FLULAVAL/F LUARIX) Unknown Completed [facility] [place] Influenza Virus Vaccine Unknown Completed [facility] [place] Influenza Virus Vaccine Quad .5 mL IM 6+ MO (FLUZONE/FLULAVAL/F LUARIX) Unknown Completed [facility] [place] Pneumococcal Polysaccharide, PPSV23 (PNEUMOVAX) Unknown Completed [facility] Influenza Virus Vaccine Quad IM, Preserv and ABX Free 6 MO-64 YRS (FLUCELVAX) Unknown Completed [facility] TDAP Unknown Completed [facility] [place] MMR Unknown Completed [facility] [place] Influenza Virus Vaccine Quad IM 3+ YRS Unknown Completed [facility] [place] Influenza Virus Vaccine Quad .5 mL IM 6+ MO (FLUZONE/FLULAVAL/F LUARIX) Unknown Completed [facility] [place] Pneumococcal Polysaccharide, PPSV23 (PNEUMOVAX) Unknown Completed [facility] TDAP Unknown Completed [facility] [place] Influenza Virus Vaccine Quad .5 mL IM 6+ MO (FLUZONE/FLULAVAL/F LUARIX) Unknown Completed [facility] [place] Influenza Virus Vaccine Unknown Completed [facility] [place] Influenza Virus Vaccine Quad .5 mL IM 6+ MO (FLUZONE/FLULAVAL/F LUARIX) Unknown Completed [facility] [place] Pneumococcal Polysaccharide, PPSV23 (PNEUMOVAX) Unknown Completed [facility] Influenza Virus Vaccine Quad IM, Preserv and ABX Free 6 MO-64 YRS (FLUCELVAX) Unknown Completed [facility] [place] TDAP Unknown Completed [facility] MMR Unknown Completed [facility] [place] Influenza Virus Vaccine Quad IM 3+ YRS Unknown Completed [facility] [place] Influenza Virus Vaccine Quad .5 mL IM 6+ MO (FLUZONE/FLULAVAL/F LUARIX) Unknown Completed [facility] [place] Pneumococcal Polysaccharide, PPSV23 (PNEUMOVAX) Unknown Completed [facility] TDAP Unknown Completed [facility] [place] Influenza Virus Vaccine Quad .5 mL IM 6+ MO (FLUZONE/FLULAVAL/F LUARIX) Unknown Completed [facility] [place] Influenza Virus Vaccine Unknown Completed [facility] [place] Influenza Virus Vaccine Quad .5 mL IM 6+ MO (FLUZONE/FLULAVAL/F LUARIX) Unknown Completed [facility] TDAP Unknown Completed [facility] MMR Unknown Completed [facility] [place] Influenza Virus Vaccine Quad IM 3+ YRS Unknown Completed [facility] [place] Influenza Virus Vaccine Quad .5 mL IM 6+ MO (FLUZONE/FLULAVAL/F LUARIX) Unknown Completed [facility] [place] Pneumococcal Polysaccharide, PPSV23 (PNEUMOVAX) Unknown Completed [facility] TDAP Unknown Completed [facility] [place] Influenza Virus Vaccine Quad .5 mL IM 6+ MO (FLUZONE/FLULAVAL/F LUARIX) Unknown Completed [facility] [place] Influenza Virus Vaccine Unknown Completed [facility] [place] Influenza Virus Vaccine Quad .5 mL IM 6+ MO (FLUZONE/FLULAVAL/F LUARIX) Unknown Completed [facility] [place] Pneumococcal Polysaccharide, PPSV23 (PNEUMOVAX) Unknown Completed [facility] Influenza Virus Vaccine Quad IM, Preserv and ABX Free 6 MO-64 YRS (FLUCELVAX) Unknown Completed [facility] TDAP Unknown Completed [facility] MMR Unknown Completed [facility] [place] Influenza Virus Vaccine Quad IM 3+ YRS Unknown Completed [facility] [place] Influenza Virus Vaccine Quad .5 mL IM 6+ MO (FLUZONE/FLULAVAL/F LUARIX) Unknown Completed [facility] [place] Pneumococcal Polysaccharide, PPSV23 (PNEUMOVAX) Unknown Completed [facility] TDAP Unknown Completed [facility] [place] Influenza Virus Vaccine Quad .5 mL IM 6+ MO (FLUZONE/FLULAVAL/F LUARIX) Unknown Completed [facility] [place] Influenza Virus Vaccine Unknown Completed [facility] [place] Influenza Virus Vaccine Quad .5 mL IM 6+ MO (FLUZONE/FLULAVAL/F LUARIX) Unknown Completed [facility] [place] Pneumococcal Polysaccharide, PPSV23 (PNEUMOVAX) Unknown Completed [facility] Influenza Virus Vaccine Quad IM, Preserv and ABX Free 6 MO-64 YRS (FLUCELVAX) Unknown Completed [facility] [place] TDAP Unknown Completed [facility] MMR Unknown Completed [facility] Influenza Virus Vaccine Quad IM 3+ YRS Unknown Completed [facility] [place] Influenza Virus Vaccine Quad .5 mL IM 6+ MO (FLUZONE/FLULAVAL/F LUARIX) Unknown Completed [facility] Pneumococcal Polysaccharide, PPSV23 (PNEUMOVAX) Unknown Completed [facility] TDAP Unknown Completed [facility] [place] Influenza Virus Vaccine Quad .5 mL IM 6+ MO (FLUZONE/FLULAVAL/F LUARIX) Unknown Completed [facility] [place] Influenza Virus Vaccine Unknown Completed [facility] [place] Influenza Virus Vaccine Quad .5 mL IM 6+ MO (FLUZONE/FLULAVAL/F LUARIX) Unknown Completed [facility] [place] Pneumococcal Polysaccharide, PPSV23 (PNEUMOVAX) Unknown Completed [facility] Influenza Virus Vaccine Quad IM, Preserv and ABX Free 6 MO-64 YRS (FLUCELVAX) Unknown Completed [facility] TDAP Unknown Completed [facility] MMR Unknown Completed [facility] [place] Influenza Virus Vaccine Quad IM 3+ YRS Unknown Completed [facility] [place] Influenza Virus Vaccine Quad .5 mL IM 6+ MO (FLUZONE/FLULAVAL/F LUARIX) Unknown Completed [facility] [place] Pneumococcal Polysaccharide, PPSV23 (PNEUMOVAX) Unknown Completed [facility] TDAP Unknown Completed [facility] [place] Influenza Virus Vaccine Quad .5 mL IM 6+ MO (FLUZONE/FLULAVAL/F LUARIX) Unknown Completed [facility] [place] Influenza Virus Vaccine Unknown Completed [facility] [place] Influenza Virus Vaccine Quad .5 mL IM 6+ MO (FLUZONE/FLULAVAL/F LUARIX) Unknown Completed [facility] [place] Pneumococcal Polysaccharide, PPSV23 (PNEUMOVAX) Unknown Completed [facility] Influenza Virus Vaccine Quad IM, Preserv and ABX Free 6 MO-64 YRS (FLUCELVAX) Unknown Completed [facility] TDAP Unknown Completed [facility] MMR Unknown Completed [facility] [place] Influenza Virus Vaccine Quad IM 3+ YRS Unknown Completed [facility] [place] Influenza Virus Vaccine Quad .5 mL IM 6+ MO (FLUZONE/FLULAVAL/F LUARIX) Unknown Completed [facility] [place] Pneumococcal Polysaccharide, PPSV23 (PNEUMOVAX) Unknown Completed [facility] TDAP Unknown Completed [facility] [place] Influenza Virus Vaccine Quad .5 mL IM 6+ MO (FLUZONE/FLULAVAL/F LUARIX) Unknown Completed [facility] [place] Influenza Virus Vaccine Unknown Completed [facility] [place] Influenza Virus Vaccine Quad .5 mL IM 6+ MO (FLUZONE/FLULAVAL/F LUARIX) Unknown Completed [facility] [place] Pneumococcal Polysaccharide, PPSV23 (PNEUMOVAX) Unknown Completed [facility] Influenza Virus Vaccine Quad IM, Preserv and ABX Free 6 MO-64 YRS (FLUCELVAX) Unknown Completed [facility] TDAP Unknown Completed [facility] MMR Unknown Completed [facility] Influenza Virus Vaccine Quad IM 3+ YRS Unknown Completed [facility] [place] Influenza Virus Vaccine Quad .5 mL IM 6+ MO (FLUZONE/FLULAVAL/F LUARIX) Unknown Completed [facility] Pneumococcal Polysaccharide, PPSV23 (PNEUMOVAX) Unknown Completed [facility] TDAP Unknown Completed [facility] Influenza Virus Vaccine Quad .5 mL IM 6+ MO (FLUZONE/FLULAVAL/F LUARIX) Unknown Completed [facility] Influenza Virus Vaccine Unknown Completed [facility] Influenza Virus Vaccine Quad .5 mL IM 6+ MO (FLUZONE/FLULAVAL/F LUARIX) Unknown Completed [facility] TDAP Unknown Completed [facility] MMR Unknown Completed [facility] Influenza Virus Vaccine Quad IM 3+ YRS Unknown Completed [facility] Influenza Virus Vaccine Quad .5 mL IM 6+ MO (FLUZONE/FLULAVAL/F LUARIX) Unknown Completed [facility] Pneumococcal Polysaccharide, PPSV23 (PNEUMOVAX) Unknown Completed [facility] TDAP Unknown Completed [facility] Influenza Virus Vaccine Quad .5 mL IM 6+ MO (FLUZONE/FLULAVAL/F LUARIX) Unknown Completed [facility] Influenza Virus Vaccine Unknown Completed [facility] Influenza Virus Vaccine Quad .5 mL IM 6+ MO (FLUZONE/FLULAVAL/F LUARIX) Unknown Completed [facility] Pneumococcal Polysaccharide, PPSV23 (PNEUMOVAX) Unknown Completed [facility] Influenza Virus Vaccine Quad IM, Preserv and ABX Free 6 MO-64 YRS (FLUCELVAX) Unknown Completed [facility] TDAP Unknown Completed [facility] MMR Unknown Completed [facility] Influenza Virus Vaccine Quad IM 3+ YRS Unknown Completed [facility] Influenza Virus Vaccine Quad .5 mL IM 6+ MO (FLUZONE/FLULAVAL/F LUARIX) Unknown Completed [facility] Pneumococcal Polysaccharide, PPSV23 (PNEUMOVAX) Unknown Completed [facility] TDAP Unknown Completed [facility] Influenza Virus Vaccine Quad .5 mL IM 6+ MO (FLUZONE/FLULAVAL/F LUARIX) Unknown Completed [facility] Influenza Virus Vaccine Unknown Completed [facility] Influenza Virus Vaccine Quad .5 mL IM 6+ MO (FLUZONE/FLULAVAL/F LUARIX) Unknown Completed [facility] Pneumococcal Polysaccharide, PPSV23 (PNEUMOVAX) Unknown Completed [facility] Influenza Virus Vaccine Quad IM, Preserv and ABX Free 6 MO-64 YRS (FLUCELVAX) Unknown Completed [facility] TDAP Unknown Completed [facility] MMR Unknown Completed [facility] Influenza Virus Vaccine Quad IM 3+ YRS Unknown Completed [facility] Influenza Virus Vaccine Quad .5 mL IM 6+ MO (FLUZONE/FLULAVAL/F LUARIX) Unknown Completed [facility] Pneumococcal Polysaccharide, PPSV23 (PNEUMOVAX) Unknown Completed [facility] TDAP Unknown Completed [facility] Influenza Virus Vaccine Quad .5 mL IM 6+ MO (FLUZONE/FLULAVAL/F LUARIX) Unknown Completed [facility] Influenza Virus Vaccine Unknown Completed [facility] Influenza Virus Vaccine Quad .5 mL IM 6+ MO (FLUZONE/FLULAVAL/F LUARIX) Unknown Completed [facility] Pneumococcal Polysaccharide, PPSV23 (PNEUMOVAX) Unknown Completed [facility] Influenza Virus Vaccine Quad IM, Preserv and ABX Free 6 MO-64 YRS (FLUCELVAX) Unknown Completed [facility] TDAP Unknown Completed [facility] MMR Unknown Completed [facility] Influenza Virus Vaccine Quad IM 3+ YRS Unknown Completed [facility] Influenza Virus Vaccine Quad .5 mL IM 6+ MO (FLUZONE/FLULAVAL/F LUARIX) Unknown Completed [facility] Pneumococcal Polysaccharide, PPSV23 (PNEUMOVAX) Unknown Completed [facility] TDAP Unknown Completed [facility] Influenza Virus Vaccine Quad .5 mL IM 6+ MO (FLUZONE/FLULAVAL/F LUARIX) Unknown Completed [facility] Influenza Virus Vaccine Unknown Completed [facility] Influenza Virus Vaccine Quad .5 mL IM 6+ MO (FLUZONE/FLULAVAL/F LUARIX) Unknown Completed [facility] Pneumococcal Polysaccharide, PPSV23 (PNEUMOVAX) Unknown Completed [facility] Influenza Virus Vaccine Quad IM, Preserv and ABX Free 6 MO-64 YRS (FLUCELVAX) Unknown Completed [facility] TDAP Unknown Completed [facility] MMR Unknown Completed [facility] Influenza Virus Vaccine Quad IM 3+ YRS Unknown Completed [facility] Influenza Virus Vaccine Quad .5 mL IM 6+ MO (FLUZONE/FLULAVAL/F LUARIX) Unknown Completed [facility] Pneumococcal Polysaccharide, PPSV23 (PNEUMOVAX) Unknown Completed [facility] TDAP Unknown Completed [facility] Influenza Virus Vaccine Quad .5 mL IM 6+ MO (FLUZONE/FLULAVAL/F LUARIX) Unknown Completed [facility] Influenza Virus Vaccine Unknown Completed [facility] Influenza Virus Vaccine Quad .5 mL IM 6+ MO (FLUZONE/FLULAVAL/F LUARIX) Unknown Completed [facility] Pneumococcal Polysaccharide, PPSV23 (PNEUMOVAX) Unknown Completed [facility] Influenza Virus Vaccine Quad IM, Preserv and ABX Free 6 MO-64 YRS (FLUCELVAX) Unknown Completed [facility] TDAP Unknown Completed [facility] MMR Unknown Completed [facility] Influenza Virus Vaccine Quad IM 3+ YRS Unknown Completed [facility] Influenza Virus Vaccine Quad .5 mL IM 6+ MO (FLUZONE/FLULAVAL/F LUARIX) Unknown Completed [facility] Pneumococcal Polysaccharide, PPSV23 (PNEUMOVAX) Unknown Completed [facility] TDAP Unknown Completed [facility] Influenza Virus Vaccine Quad .5 mL IM 6+ MO (FLUZONE/FLULAVAL/F LUARIX) Unknown Completed [facility] Influenza Virus Vaccine Unknown Completed [facility] Influenza Virus Vaccine Quad .5 mL IM 6+ MO (FLUZONE/FLULAVAL/F LUARIX) Unknown Completed [facility] Pneumococcal Polysaccharide, PPSV23 (PNEUMOVAX) Unknown Completed [facility] Influenza Virus Vaccine Quad IM, Preserv and ABX Free 6 MO-64 YRS (FLUCELVAX) Unknown Completed [facility] TDAP Unknown Completed [facility] MMR Unknown Completed [facility] Influenza Virus Vaccine Quad IM 3+ YRS Unknown Completed [facility] Influenza Virus Vaccine Quad .5 mL IM 6+ MO (FLUZONE/FLULAVAL/F LUARIX) Unknown Completed [facility] Pneumococcal Polysaccharide, PPSV23 (PNEUMOVAX) Unknown Completed [facility] TDAP Unknown Completed [facility] Influenza Virus Vaccine Quad .5 mL IM 6+ MO (FLUZONE/FLULAVAL/F LUARIX) Unknown Completed [facility] Influenza Virus Vaccine Unknown Completed [facility] Influenza Virus Vaccine Quad .5 mL IM 6+ MO (FLUZONE/FLULAVAL/F LUARIX) Unknown Completed [facility] Pneumococcal Polysaccharide, PPSV23 (PNEUMOVAX) Unknown Completed [facility] Influenza Virus Vaccine Quad IM, Preserv and ABX Free 6 MO-64 YRS (FLUCELVAX) Unknown Completed [facility] TDAP Unknown Completed [facility] MMR Unknown Completed [facility] Influenza Virus Vaccine Quad IM 3+ YRS Unknown Completed [facility] Influenza Virus Vaccine Quad .5 mL IM 6+ MO (FLUZONE/FLULAVAL/F LUARIX) Unknown Completed [facility] Pneumococcal Polysaccharide, PPSV23 (PNEUMOVAX) Unknown Completed [facility] TDAP Unknown Completed [facility] Influenza Virus Vaccine Quad .5 mL IM 6+ MO (FLUZONE/FLULAVAL/F LUARIX) Unknown Completed [facility] Influenza Virus Vaccine Unknown Completed [facility] Influenza Virus Vaccine Quad .5 mL IM 6+ MO (FLUZONE/FLULAVAL/F LUARIX) Unknown Completed [facility] Pneumococcal Polysaccharide, PPSV23 (PNEUMOVAX) Unknown Completed [facility] Influenza Virus Vaccine Quad IM, Preserv and ABX Free 6 MO-64 YRS (FLUCELVAX) Unknown Completed [facility] TDAP Unknown Completed [facility] MMR Unknown Completed [facility] Influenza Virus Vaccine Quad IM 3+ YRS Unknown Completed [facility] Influenza Virus Vaccine Quad .5 mL IM 6+ MO (FLUZONE/FLULAVAL/F LUARIX) Unknown Completed [facility] Pneumococcal Polysaccharide, PPSV23 (PNEUMOVAX) Unknown Completed [facility] TDAP Unknown Completed [facility] Influenza Virus Vaccine Quad .5 mL IM 6+ MO (FLUZONE/FLULAVAL/F LUARIX) Unknown Completed [facility] Influenza Virus Vaccine Unknown Completed [facility] Influenza Virus Vaccine Quad .5 mL IM 6+ MO (FLUZONE/FLULAVAL/F LUARIX) Unknown Completed [facility] Pneumococcal Polysaccharide, PPSV23 (PNEUMOVAX) Unknown Completed [facility] Influenza Virus Vaccine Quad IM, Preserv and ABX Free 6 MO-64 YRS (FLUCELVAX) Unknown Completed [facility] TDAP Unknown Completed [facility] MMR Unknown Completed [facility] Influenza Virus Vaccine Quad IM 3+ YRS Unknown Completed [facility] Influenza Virus Vaccine Quad .5 mL IM 6+ MO (FLUZONE/FLULAVAL/F LUARIX) Unknown Completed [facility] Pneumococcal Polysaccharide, PPSV23 (PNEUMOVAX) Unknown Completed [facility] TDAP Unknown Completed [facility] Influenza Virus Vaccine Quad .5 mL IM 6+ MO (FLUZONE/FLULAVAL/F LUARIX) Unknown Completed [facility] Influenza Virus Vaccine Unknown Completed [facility] Influenza Virus Vaccine Quad .5 mL IM 6+ MO (FLUZONE/FLULAVAL/F LUARIX) Unknown Completed [facility] Pneumococcal Polysaccharide, PPSV23 (PNEUMOVAX) Unknown Completed [facility] Influenza Virus Vaccine Quad IM, Preserv and ABX Free 6 MO-64 YRS (FLUCELVAX) Unknown Completed [facility] TDAP Unknown Completed [facility] MMR Unknown Completed [facility] Influenza Virus Vaccine Quad IM 3+ YRS Unknown Completed [facility] Influenza Virus Vaccine Quad .5 mL IM 6+ MO (FLUZONE/FLULAVAL/F LUARIX) Unknown Completed [facility] Pneumococcal Polysaccharide, PPSV23 (PNEUMOVAX) Unknown Completed [facility] TDAP Unknown Completed [facility] Influenza Virus Vaccine Quad .5 mL IM 6+ MO (FLUZONE/FLULAVAL/F LUARIX) Unknown Completed [facility] Influenza Virus Vaccine Unknown Completed [facility] Influenza Virus Vaccine Quad .5 mL IM 6+ MO (FLUZONE/FLULAVAL/F LUARIX) Unknown Completed [facility] Pneumococcal Polysaccharide, PPSV23 (PNEUMOVAX) Unknown Completed [facility] Influenza Virus Vaccine Quad IM, Preserv and ABX Free 6 MO-64 YRS (FLUCELVAX) Unknown Completed [facility] TDAP Unknown Completed [facility] MMR Unknown Completed [facility] Influenza Virus Vaccine Quad IM 3+ YRS Unknown Completed [facility] Influenza Virus Vaccine Quad .5 mL IM 6+ MO (FLUZONE/FLULAVAL/F LUARIX) Unknown Completed [facility] Pneumococcal Polysaccharide, PPSV23 (PNEUMOVAX) Unknown Completed [facility] TDAP Unknown Completed [facility] Influenza Virus Vaccine Quad .5 mL IM 6+ MO (FLUZONE/FLULAVAL/F LUARIX) Unknown Completed [facility] Influenza Virus Vaccine Unknown Completed [facility] Influenza Virus Vaccine Quad .5 mL IM 6+ MO (FLUZONE/FLULAVAL/F LUARIX) Unknown Completed [facility] Pneumococcal Polysaccharide, PPSV23 (PNEUMOVAX) Unknown Completed [facility] Influenza Virus Vaccine Quad IM, Preserv and ABX Free 6 MO-64 YRS (FLUCELVAX) Unknown Completed [facility] TDAP Unknown Completed [facility] MMR Unknown Completed [facility] Influenza Virus Vaccine Quad IM 3+ YRS Unknown Completed [facility] Influenza Virus Vaccine Quad .5 mL IM 6+ MO (FLUZONE/FLULAVAL/F LUARIX) Unknown Completed [facility] Pneumococcal Polysaccharide, PPSV23 (PNEUMOVAX) Unknown Completed [facility] TDAP Unknown Completed [facility] Influenza Virus Vaccine Quad .5 mL IM 6+ MO (FLUZONE/FLULAVAL/F LUARIX) Unknown Completed [facility] Influenza Virus Vaccine Unknown Completed [facility] Influenza Virus Vaccine Quad .5 mL IM 6+ MO (FLUZONE/FLULAVAL/F LUARIX) Unknown Completed [facility] Pneumococcal Polysaccharide, PPSV23 (PNEUMOVAX) Unknown Completed [facility] Influenza Virus Vaccine Quad IM, Preserv and ABX Free 6 MO-64 YRS (FLUCELVAX) Unknown Completed [facility] TDAP Unknown Completed [facility] MMR Unknown Completed [facility] Influenza Virus Vaccine Quad IM 3+ YRS Unknown Completed [facility] Influenza Virus Vaccine Quad .5 mL IM 6+ MO (FLUZONE/FLULAVAL/F LUARIX) Unknown Completed [facility] Pneumococcal Polysaccharide, PPSV23 (PNEUMOVAX) Unknown Completed [facility] TDAP Unknown Completed [facility] Influenza Virus Vaccine Quad .5 mL IM 6+ MO (FLUZONE/FLULAVAL/F LUARIX) Unknown Completed [facility] Influenza Virus Vaccine Unknown Completed [facility] Influenza Virus Vaccine Quad .5 mL IM 6+ MO (FLUZONE/FLULAVAL/F LUARIX) Unknown Completed [facility] Pneumococcal Polysaccharide, PPSV23 (PNEUMOVAX) Unknown Completed [facility] Influenza Virus Vaccine Quad IM, Preserv and ABX Free 6 MO-64 YRS (FLUCELVAX) Unknown Completed [facility] TDAP Unknown Completed [facility] MMR Unknown Completed [facility] Influenza Virus Vaccine Quad IM 3+ YRS Unknown Completed [facility] Influenza Virus Vaccine Quad .5 mL IM 6+ MO (FLUZONE/FLULAVAL/F LUARIX) Unknown Completed [facility] Pneumococcal Polysaccharide, PPSV23 (PNEUMOVAX) Unknown Completed [facility] TDAP Unknown Completed [facility] Influenza Virus Vaccine Quad .5 mL IM 6+ MO (FLUZONE/FLULAVAL/F LUARIX) Unknown Completed [facility] Influenza Virus Vaccine Unknown Completed [facility] Influenza Virus Vaccine Quad .5 mL IM 6+ MO (FLUZONE/FLULAVAL/F LUARIX) Unknown Completed [facility] Pneumococcal Polysaccharide, PPSV23 (PNEUMOVAX) Unknown Completed [facility] Influenza Virus Vaccine Quad IM, Preserv and ABX Free 6 MO-64 YRS (FLUCELVAX) Unknown Completed [facility] TDAP Unknown Completed [facility] MMR Unknown Completed [facility] Influenza Virus Vaccine Quad IM 3+ YRS Unknown Completed [facility] Influenza Virus Vaccine Quad .5 mL IM 6+ MO (FLUZONE/FLULAVAL/F LUARIX) Unknown Completed [facility] Pneumococcal Polysaccharide, PPSV23 (PNEUMOVAX) Unknown Completed [facility] TDAP Unknown Completed [facility] Influenza Virus Vaccine Quad .5 mL IM 6+ MO (FLUZONE/FLULAVAL/F LUARIX) Unknown Completed [facility] Influenza Virus Vaccine Unknown Completed [facility] Influenza Virus Vaccine Quad .5 mL IM 6+ MO (FLUZONE/FLULAVAL/F LUARIX) Unknown Completed [facility] Pneumococcal Polysaccharide, PPSV23 (PNEUMOVAX) Unknown Completed [facility] Influenza Virus Vaccine Quad IM, Preserv and ABX Free 6 MO-64 YRS (FLUCELVAX) Unknown Completed [facility] TDAP Unknown Completed [facility] MMR Unknown Completed [facility] Influenza Virus Vaccine Quad IM 3+ YRS Unknown Completed [facility] Influenza Virus Vaccine Quad .5 mL IM 6+ MO (FLUZONE/FLULAVAL/F LUARIX) Unknown Completed [facility] Pneumococcal Polysaccharide, PPSV23 (PNEUMOVAX) Unknown Completed [facility] TDAP Unknown Completed [facility] Influenza Virus Vaccine Quad .5 mL IM 6+ MO (FLUZONE/FLULAVAL/F LUARIX) Unknown Completed [facility] Influenza Virus Vaccine Unknown Completed [facility] Influenza Virus Vaccine Quad .5 mL IM 6+ MO (FLUZONE/FLULAVAL/F LUARIX) Unknown Completed [facility] Pneumococcal Polysaccharide, PPSV23 (PNEUMOVAX) Unknown Completed [facility] Influenza Virus Vaccine Quad IM, Preserv and ABX Free 6 MO-64 YRS (FLUCELVAX) Unknown Completed [facility] TDAP Unknown Completed [facility] MMR Unknown Completed [facility] Influenza Virus Vaccine Quad IM 3+ YRS Unknown Completed [facility] Influenza Virus Vaccine Quad .5 mL IM 6+ MO (FLUZONE/FLULAVAL/F LUARIX) Unknown Completed [facility] Pneumococcal Polysaccharide, PPSV23 (PNEUMOVAX) Unknown Completed [facility] TDAP Unknown Completed [facility] Influenza Virus Vaccine Quad .5 mL IM 6+ MO (FLUZONE/FLULAVAL/F LUARIX) Unknown Completed [facility] Influenza Virus Vaccine Unknown Completed [facility] Influenza Virus Vaccine Quad .5 mL IM 6+ MO (FLUZONE/FLULAVAL/F LUARIX) Unknown Completed [facility] Pneumococcal Polysaccharide, PPSV23 (PNEUMOVAX) Unknown Completed [facility] Influenza Virus Vaccine Quad IM, Preserv and ABX Free 6 MO-64 YRS (FLUCELVAX) Unknown Completed [facility] TDAP Unknown Completed [facility] MMR Unknown Completed [facility] Influenza Virus Vaccine Quad IM 3+ YRS Unknown Completed [facility] Influenza Virus Vaccine Quad .5 mL IM 6+ MO (FLUZONE/FLULAVAL/F LUARIX) Unknown Completed [facility] Pneumococcal Polysaccharide, PPSV23 (PNEUMOVAX) Unknown Completed [facility] TDAP Unknown Completed [facility] Influenza Virus Vaccine Quad .5 mL IM 6+ MO (FLUZONE/FLULAVAL/F LUARIX) Unknown Completed [facility] Influenza Virus Vaccine Unknown Completed [facility] Influenza Virus Vaccine Quad .5 mL IM 6+ MO (FLUZONE/FLULAVAL/F LUARIX) Unknown Completed [facility] Pneumococcal Polysaccharide, PPSV23 (PNEUMOVAX) Unknown Completed [facility] Influenza Virus Vaccine Quad IM, Preserv and ABX Free 6 MO-64 YRS (FLUCELVAX) Unknown Completed [facility] TDAP Unknown Completed [facility] MMR Unknown Completed [facility] Influenza Virus Vaccine Quad IM 3+ YRS Unknown Completed [facility] Influenza Virus Vaccine Quad .5 mL IM 6+ MO (FLUZONE/FLULAVAL/F LUARIX) Unknown Completed [facility] Pneumococcal Polysaccharide, PPSV23 (PNEUMOVAX) Unknown Completed [facility] TDAP Unknown Completed [facility] Influenza Virus Vaccine Quad .5 mL IM 6+ MO (FLUZONE/FLULAVAL/F LUARIX) Unknown Completed [facility] Influenza Virus Vaccine Unknown Completed [facility] Influenza Virus Vaccine Quad .5 mL IM 6+ MO (FLUZONE/FLULAVAL/F LUARIX) Unknown Completed [facility] Pneumococcal Polysaccharide, PPSV23 (PNEUMOVAX) Unknown Completed [facility] Influenza Virus Vaccine Quad IM, Preserv and ABX Free 6 MO-64 YRS (FLUCELVAX) Unknown Completed [facility] TDAP Unknown Completed [facility] MMR Unknown Completed [facility] Influenza Virus Vaccine Quad IM 3+ YRS Unknown Completed [facility] Influenza Virus Vaccine Quad .5 mL IM 6+ MO (FLUZONE/FLULAVAL/F LUARIX) Unknown Completed [facility] Pneumococcal Polysaccharide, PPSV23 (PNEUMOVAX) Unknown Completed [facility] TDAP Unknown Completed [facility] Influenza Virus Vaccine Quad .5 mL IM 6+ MO (FLUZONE/FLULAVAL/F LUARIX) Unknown Completed [facility] Influenza Virus Vaccine Unknown Completed [facility] Influenza Virus Vaccine Quad .5 mL IM 6+ MO (FLUZONE/FLULAVAL/F LUARIX) Unknown Completed [facility] Pneumococcal Polysaccharide, PPSV23 (PNEUMOVAX) Unknown Completed [facility] Influenza Virus Vaccine Quad IM, Preserv and ABX Free 6 MO-64 YRS (FLUCELVAX) Unknown Completed [facility] TDAP Unknown Completed [facility] MMR Unknown Completed [facility] Influenza Virus Vaccine Quad IM 3+ YRS Unknown Completed [facility] Influenza Virus Vaccine Quad .5 mL IM 6+ MO (FLUZONE/FLULAVAL/F LUARIX) Unknown Completed [facility] Pneumococcal Polysaccharide, PPSV23 (PNEUMOVAX) Unknown Completed [facility] TDAP Unknown Completed [facility] Influenza Virus Vaccine Quad .5 mL IM 6+ MO (FLUZONE/FLULAVAL/F LUARIX) Unknown Completed [facility] Influenza Virus Vaccine Unknown Completed [facility] Influenza Virus Vaccine Quad .5 mL IM 6+ MO (FLUZONE/FLULAVAL/F LUARIX) Unknown Completed [facility] Pneumococcal Polysaccharide, PPSV23 (PNEUMOVAX) Unknown Completed [facility] Influenza Virus Vaccine Quad IM, Preserv and ABX Free 6 MO-64 YRS (FLUCELVAX) Unknown Completed [facility] TDAP Unknown Completed [facility] MMR Unknown Completed [facility] Influenza Virus Vaccine Quad IM 3+ YRS Unknown Completed [facility] Influenza Virus Vaccine Quad .5 mL IM 6+ MO (FLUZONE/FLULAVAL/F LUARIX) Unknown Completed [facility] Pneumococcal Polysaccharide, PPSV23 (PNEUMOVAX) Unknown Completed [facility] TDAP Unknown Completed [facility] Influenza Virus Vaccine Quad .5 mL IM 6+ MO (FLUZONE/FLULAVAL/F LUARIX) Unknown Completed [facility] Influenza Virus Vaccine Unknown Completed [facility] Influenza Virus Vaccine Quad .5 mL IM 6+ MO (FLUZONE/FLULAVAL/F LUARIX) Unknown Completed [facility] Pneumococcal Polysaccharide, PPSV23 (PNEUMOVAX) Unknown Completed [facility] Influenza Virus Vaccine Quad IM, Preserv and ABX Free 6 MO-64 YRS (FLUCELVAX) Unknown Completed [facility] TDAP Unknown Completed [facility] MMR Unknown Completed [facility] Influenza Virus Vaccine Quad IM 3+ YRS Unknown Completed [facility] Influenza Virus Vaccine Quad .5 mL IM 6+ MO (FLUZONE/FLULAVAL/F LUARIX) Unknown Completed [facility] Pneumococcal Polysaccharide, PPSV23 (PNEUMOVAX) Unknown Completed [facility] TDAP Unknown Completed [facility] Influenza Virus Vaccine Quad .5 mL IM 6+ MO (FLUZONE/FLULAVAL/F LUARIX) Unknown Completed [facility] Influenza Virus Vaccine Unknown Completed [facility] Influenza Virus Vaccine Quad .5 mL IM 6+ MO (FLUZONE/FLULAVAL/F LUARIX) Unknown Completed [facility] Pneumococcal Polysaccharide, PPSV23 (PNEUMOVAX) Unknown Completed [facility] Influenza Virus Vaccine Quad IM, Preserv and ABX Free 6 MO-64 YRS (FLUCELVAX) Unknown Completed [facility] TDAP Unknown Completed [facility] MMR Unknown Completed [facility] Influenza Virus Vaccine Quad IM 3+ YRS Unknown Completed [facility] Influenza Virus Vaccine Quad .5 mL IM 6+ MO (FLUZONE/FLULAVAL/F LUARIX) Unknown Completed [facility] Pneumococcal Polysaccharide, PPSV23 (PNEUMOVAX) Unknown Completed [facility] TDAP Unknown Completed [facility] Influenza Virus Vaccine Quad .5 mL IM 6+ MO (FLUZONE/FLULAVAL/F LUARIX) Unknown Completed [facility] Influenza Virus Vaccine Unknown Completed [facility] Influenza Virus Vaccine Quad .5 mL IM 6+ MO (FLUZONE/FLULAVAL/F LUARIX) Unknown Completed [facility] Pneumococcal Polysaccharide, PPSV23 (PNEUMOVAX) Unknown Completed [facility] Influenza Virus Vaccine Quad IM, Preserv and ABX Free 6 MO-64 YRS (FLUCELVAX) Unknown Completed [facility] TDAP Unknown Completed [facility] MMR Unknown Completed [facility] Influenza Virus Vaccine Quad IM 3+ YRS Unknown Completed [facility] Influenza Virus Vaccine Quad .5 mL IM 6+ MO (FLUZONE/FLULAVAL/F LUARIX) Unknown Completed [facility] Pneumococcal Polysaccharide, PPSV23 (PNEUMOVAX) Unknown Completed [facility] TDAP Unknown Completed [facility] Influenza Virus Vaccine Quad .5 mL IM 6+ MO (FLUZONE/FLULAVAL/F LUARIX) Unknown Completed [facility] Influenza Virus Vaccine Unknown Completed [facility] Influenza Virus Vaccine Quad .5 mL IM 6+ MO (FLUZONE/FLULAVAL/F LUARIX) Unknown Completed [facility] Pneumococcal Polysaccharide, PPSV23 (PNEUMOVAX) Unknown Completed [facility] Influenza Virus Vaccine Quad IM, Preserv and ABX Free 6 MO-64 YRS (FLUCELVAX) Unknown Completed [facility] TDAP Unknown Completed [facility] MMR Unknown Completed [facility] Influenza Virus Vaccine Quad IM 3+ YRS Unknown Completed [facility] Influenza Virus Vaccine Quad .5 mL IM 6+ MO (FLUZONE/FLULAVAL/F LUARIX) Unknown Completed [facility] Pneumococcal Polysaccharide, PPSV23 (PNEUMOVAX) Unknown Completed [facility] TDAP Unknown Completed [facility] [place] Influenza Virus Vaccine Quad .5 mL IM 6+ MO (FLUZONE/FLULAVAL/F LUARIX) Unknown Completed [facility] [place] Influenza Virus Vaccine Unknown Completed [facility] [place] Influenza Virus Vaccine Quad .5 mL IM 6+ MO (FLUZONE/FLULAVAL/F LUARIX) Unknown Completed [facility] [place] Pneumococcal Polysaccharide, PPSV23 (PNEUMOVAX) Unknown Completed [facility] Influenza Virus Vaccine Quad IM, Preserv and ABX Free 6 MO-64 YRS (FLUCELVAX) Unknown Completed [facility] [place] TDAP Unknown Completed [facility] [place] MMR Unknown Completed [facility] [place] Influenza Virus Vaccine Quad IM 3+ YRS Unknown Completed [facility] [place] Influenza Virus Vaccine Quad .5 mL IM 6+ MO (FLUZONE/FLULAVAL/F LUARIX) Unknown Completed [facility] [place] Pneumococcal Polysaccharide, PPSV23 (PNEUMOVAX) Unknown Completed [facility] TDAP Unknown Completed [facility] [place] Influenza Virus Vaccine Quad .5 mL IM 6+ MO (FLUZONE/FLULAVAL/F LUARIX) Unknown Completed [facility] [place] Influenza Virus Vaccine Unknown Completed [facility] [place] Influenza Virus Vaccine Quad .5 mL IM 6+ MO (FLUZONE/FLULAVAL/F LUARIX) Unknown Completed [facility] [place] Pneumococcal Polysaccharide, PPSV23 (PNEUMOVAX) Unknown Completed [facility] Influenza Virus Vaccine Quad IM, Preserv and ABX Free 6 MO-64 YRS (FLUCELVAX) Unknown Completed [facility] [place] TDAP Unknown Completed [facility] [place] MMR Unknown Completed [facility] [place] Influenza Virus Vaccine Quad IM 3+ YRS Unknown Completed [facility] [place] Influenza Virus Vaccine Quad .5 mL IM 6+ MO (FLUZONE/FLULAVAL/F LUARIX) Unknown Completed [facility] [place] Pneumococcal Polysaccharide, PPSV23 (PNEUMOVAX) Unknown Completed [facility] TDAP Unknown Completed [facility] [place] Influenza Virus Vaccine Quad .5 mL IM 6+ MO (FLUZONE/FLULAVAL/F LUARIX) Unknown Completed [facility] [place] Influenza Virus Vaccine Unknown Completed [facility] [place] Influenza Virus Vaccine Quad .5 mL IM 6+ MO (FLUZONE/FLULAVAL/F LUARIX) Unknown Completed [facility] [place] Pneumococcal Polysaccharide, PPSV23 (PNEUMOVAX) Unknown Completed [facility] Influenza Virus Vaccine Quad IM, Preserv and ABX Free 6 MO-64 YRS (FLUCELVAX) Unknown Completed [facility] [place] TDAP Unknown Completed [facility] [place] MMR Unknown Completed [facility] [place] Influenza Virus Vaccine Quad IM 3+ YRS Unknown Completed [facility] [place] Influenza Virus Vaccine Quad .5 mL IM 6+ MO (FLUZONE/FLULAVAL/F LUARIX) Unknown Completed [facility] [place] Pneumococcal Polysaccharide, PPSV23 (PNEUMOVAX) Unknown Completed [facility] TDAP Unknown Completed [facility] [place] Influenza Virus Vaccine Quad .5 mL IM 6+ MO (FLUZONE/FLULAVAL/F LUARIX) Unknown Completed [facility] [place] Influenza Virus Vaccine Unknown Completed [facility] [place] Influenza Virus Vaccine Quad .5 mL IM 6+ MO (FLUZONE/FLULAVAL/F LUARIX) Unknown Completed [facility] [place] Pneumococcal Polysaccharide, PPSV23 (PNEUMOVAX) Unknown Completed [facility] Influenza Virus Vaccine Quad IM, Preserv and ABX Free 6 MO-64 YRS (FLUCELVAX) Unknown Completed [facility] [place] TDAP Unknown Completed [facility] [place] MMR Unknown Completed [facility] [place] Influenza Virus Vaccine Quad IM 3+ YRS Unknown Completed [facility] [place] Influenza Virus Vaccine Quad .5 mL IM 6+ MO (FLUZONE/FLULAVAL/F LUARIX) Unknown Completed [facility] [place] Pneumococcal Polysaccharide, PPSV23 (PNEUMOVAX) Unknown Completed [facility] TDAP Unknown Completed [facility] [place] Influenza Virus Vaccine Quad .5 mL IM 6+ MO (FLUZONE/FLULAVAL/F LUARIX) Unknown Completed [facility] [place] Influenza Virus Vaccine Unknown Completed [facility] [place] Influenza Virus Vaccine Quad .5 mL IM 6+ MO (FLUZONE/FLULAVAL/F LUARIX) Unknown Completed [facility] [place] Pneumococcal Polysaccharide, PPSV23 (PNEUMOVAX) Unknown Completed [facility] Influenza Virus Vaccine Quad IM, Preserv and ABX Free 6 MO-64 YRS (FLUCELVAX) Unknown Completed [facility] [place] TDAP Unknown Completed [facility] [place] MMR Unknown Completed [facility] [place] Influenza Virus Vaccine Quad IM 3+ YRS Unknown Completed [facility] [place] Influenza Virus Vaccine Quad .5 mL IM 6+ MO (FLUZONE/FLULAVAL/F LUARIX) Unknown Completed [facility] [place] Pneumococcal Polysaccharide, PPSV23 (PNEUMOVAX) Unknown Completed [facility] TDAP Unknown Completed [facility] [place] Influenza Virus Vaccine Quad .5 mL IM 6+ MO (FLUZONE/FLULAVAL/F LUARIX) Unknown Completed [facility] [place] Influenza Virus Vaccine Unknown Completed [facility] [place] Influenza Virus Vaccine Quad .5 mL IM 6+ MO (FLUZONE/FLULAVAL/F LUARIX) Unknown Completed [facility] [place] Pneumococcal Polysaccharide, PPSV23 (PNEUMOVAX) Unknown Completed [facility] Influenza Virus Vaccine Quad IM, Preserv and ABX Free 6 MO-64 YRS (FLUCELVAX) Unknown Completed [facility] [place] TDAP Unknown Completed [facility] [place] MMR Unknown Completed [facility] [place] Influenza Virus Vaccine Quad IM 3+ YRS Unknown Completed [facility] [place] Influenza Virus Vaccine Quad .5 mL IM 6+ MO (FLUZONE/FLULAVAL/F LUARIX) Unknown Completed [facility] [place] Pneumococcal Polysaccharide, PPSV23 (PNEUMOVAX) Unknown Completed [facility] TDAP Unknown Completed [facility] [place] Influenza Virus Vaccine Quad .5 mL IM 6+ MO (FLUZONE/FLULAVAL/F LUARIX) Unknown Completed [facility] [place] Influenza Virus Vaccine Unknown Completed [facility] [place] Influenza Virus Vaccine Quad .5 mL IM 6+ MO (FLUZONE/FLULAVAL/F LUARIX) Unknown Completed [facility] [place] Pneumococcal Polysaccharide, PPSV23 (PNEUMOVAX) Unknown Completed [facility] Influenza Virus Vaccine Quad IM, Preserv and ABX Free 6 MO-64 YRS (FLUCELVAX) Unknown Completed [facility] [place] TDAP Unknown Completed [facility] [place] MMR Unknown Completed [facility] [place] Influenza Virus Vaccine Quad IM 3+ YRS Unknown Completed [facility] [place] Influenza Virus Vaccine Quad .5 mL IM 6+ MO (FLUZONE/FLULAVAL/F LUARIX) Unknown Completed [facility] [place] Pneumococcal Polysaccharide, PPSV23 (PNEUMOVAX) Unknown Completed [facility] TDAP Unknown Completed [facility] [place] Influenza Virus Vaccine Quad .5 mL IM 6+ MO (FLUZONE/FLULAVAL/F LUARIX) Unknown Completed [facility] [place] Influenza Virus Vaccine Unknown Completed [facility] [place] Influenza Virus Vaccine Quad .5 mL IM 6+ MO (FLUZONE/FLULAVAL/F LUARIX) Unknown Completed [facility] [place] Pneumococcal Polysaccharide, PPSV23 (PNEUMOVAX) Unknown Completed [facility] Influenza Virus Vaccine Quad IM, Preserv and ABX Free 6 MO-64 YRS (FLUCELVAX) Unknown Completed [facility] [place] TDAP Unknown Completed [facility] [place] MMR Unknown Completed [facility] [place] Influenza Virus Vaccine Quad IM 3+ YRS Unknown Completed [facility] [place] Influenza Virus Vaccine Quad .5 mL IM 6+ MO (FLUZONE/FLULAVAL/F LUARIX) Unknown Completed [facility] [place] Pneumococcal Polysaccharide, PPSV23 (PNEUMOVAX) Unknown Completed [facility] TDAP Unknown Completed [facility] [place] Influenza Virus Vaccine Quad .5 mL IM 6+ MO (FLUZONE/FLULAVAL/F LUARIX) Unknown Completed [facility] [place] Influenza Virus Vaccine Unknown Completed [facility] [place] Influenza Virus Vaccine Quad .5 mL IM 6+ MO (FLUZONE/FLULAVAL/F LUARIX) Unknown Completed [facility] [place] Pneumococcal Polysaccharide, PPSV23 (PNEUMOVAX) Unknown Completed [facility] Influenza Virus Vaccine Quad IM, Preserv and ABX Free 6 MO-64 YRS (FLUCELVAX) Unknown Completed [facility] [place] TDAP Unknown Completed [facility] MMR Unknown Completed [facility] [place] Influenza Virus Vaccine Quad IM 3+ YRS Unknown Completed [facility] [place] Influenza Virus Vaccine Quad .5 mL IM 6+ MO (FLUZONE/FLULAVAL/F LUARIX) Unknown Completed [facility] [place] Pneumococcal Polysaccharide, PPSV23 (PNEUMOVAX) Unknown Completed [facility] TDAP Unknown Completed [facility] [place] Influenza Virus Vaccine Quad .5 mL IM 6+ MO (FLUZONE/FLULAVAL/F LUARIX) Unknown Completed [facility] [place] Influenza Virus Vaccine Unknown Completed [facility] [place] Influenza Virus Vaccine Quad .5 mL IM 6+ MO (FLUZONE/FLULAVAL/F LUARIX) Unknown Completed [facility] [place] Pneumococcal Polysaccharide, PPSV23 (PNEUMOVAX) Unknown Completed [facility] Influenza Virus Vaccine Quad IM, Preserv and ABX Free 6 MO-64 YRS (FLUCELVAX) Unknown Completed [facility] [place] Vital Signs Vital Name Observation Time Observation Value Comments S ource Systolic blood pressure 2023-10-15 20:35:00 114 mm[Hg] [facility] [place] Diastolic blood pressure 2023-10-15 20:35:00 81 mm[Hg] [facility] Heart rate 2023-10-15 20:35:00 77 /min [facility] [place] Body height 2023-10-15 20:35:00 162.6 cm [facility] [place] Body weight 2023-10-15 20:35:00 89.313 kg [facility] [place] BMI 2023-10-15 20:35:00 33.80 kg/m2 [facility] [place] Oxygen saturation in Arterial blood by Pulse oximetry 2023-10-15 20:35:00 97 /min [facility] [place] Systolic blood pressure 2023-09-12 21:15:00 120 mm[Hg] [facility] [place] Diastolic blood pressure 2023-09-12 21:15:00 75 mm[Hg] [facility] Heart rate 2023-09-12 21:15:00 89 /min [facility] [place] Respiratory rate 2023-09-12 21:15:00 16 /min [facility] [place] Oxygen saturation in Arterial blood by Pulse oximetry 2023-09-12 21:15:00 97 /min [facility] [place] Body temperature 2023-09-12 20:24:39 36.94 [place] [facility] [place] Body height 2023-09-12 20:02:00 162.6 cm [facility] [place] Body weight 2023-09-12 20:02:00 95.255 kg [facility] [place] BMI 2023-09-12 20:02:00 36.05 kg/m2 [facility] [place] Systolic blood pressure 2023-09-10 21:59:00 111 mm[Hg] [facility] [place] Diastolic blood pressure 2023-09-10 21:59:00 71 mm[Hg] [facility] [place] Heart rate 2023-09-10 21:59:00 82 /min [facility] [place] Body height 2023-09-10 21:59:00 162.6 cm [facility] [place] Body weight 2023-09-10 21:59:00 95.255 kg [facility] [place] BMI 2023-09-10 21:59:00 36.05 kg/m2 [facility] [place] Systolic blood pressure 2023-06-25 19:40:00 114 mm[Hg] [facility] [place] Diastolic blood pressure 2023-06-25 19:40:00 78 mm[Hg] [facility] Heart rate 2023-06-25 19:40:00 82 /min [facility] [place] Respiratory rate 2023-06-25 19:40:00 12 /min [facility] [place] Body height 2023-06-25 19:40:00 162.6 cm [facility] [place] Body weight 2023-06-25 19:40:00 95.255 kg [facility] [place] BMI 2023-06-25 19:40:00 36.05 kg/m2 [facility] [place] Oxygen saturation in Arterial blood by Pulse oximetry 2023-06-25 19:40:00 97 /min [facility] [place] Systolic blood pressure 2023-06-11 18:36:00 130 mm[Hg] [facility] [place] Diastolic blood pressure 2023-06-11 18:36:00 86 mm[Hg] [facility] Heart rate 2023-06-11 18:36:00 77 /min [facility] [place] Body height 2023-06-11 18:36:00 162.6 cm [facility] [place] Body weight 2023-06-11 18:36:00 92.352 kg [facility] [place] BMI 2023-06-11 18:36:00 34.95 kg/m2 [facility] [place] Oxygen saturation in Arterial blood by Pulse oximetry 2023-06-11 18:36:00 97 /min [facility] [place] Systolic blood pressure 2023-06-06 18:24:00 125 mm[Hg] [facility] [place] Diastolic blood pressure 2023-06-06 18:24:00 86 mm[Hg] [facility] Heart rate 2023-06-06 18:24:00 79 /min [facility] [place] Respiratory rate 2023-06-06 18:24:00 18 /min [facility] Body height 2023-06-06 18:24:00 162.6 cm [facility] [place] Body weight 2023-06-06 18:24:00 91.173 kg [facility] BMI 2023-06-06 18:24:00 34.50 kg/m2 [facility] [place] Systolic blood pressure 2023-05-11 19:10:00 101 mm[Hg] [facility] [place] Diastolic blood pressure 2023-05-11 19:10:00 57 mm[Hg] [facility] Heart rate 2023-05-11 19:10:00 84 /min [facility] [place] Respiratory rate 2023-05-11 19:10:00 16 /min [facility] [place] Oxygen saturation in Arterial blood by Pulse oximetry 2023-05-11 19:10:00 100 /min [facility] Body height 2023-05-11 18:07:00 162.6 cm [facility] Body weight 2023-05-11 18:07:00 90.719 kg [facility] BMI 2023-05-11 18:07:00 34.33 kg/m2 [facility] [place] Systolic blood pressure 2023-05-02 18:07:00 121 mm[Hg] [facility] [place] Diastolic blood pressure 2023-05-02 18:07:00 84 mm[Hg] [facility] Heart rate 2023-05-02 18:07:00 93 /min [facility] Body temperature 2023-05-02 18:07:00 37.11 [place] [facility] [place] Respiratory rate 2023-05-02 18:07:00 16 /min [facility] Body height 2023-05-02 18:07:00 162.6 cm [facility] Body weight 2023-05-02 18:07:00 92.579 kg [facility] BMI 2023-05-02 18:07:00 35.03 kg/m2 [facility] [place] Oxygen saturation in Arterial blood by Pulse oximetry 2023-05-02 18:07:00 97 /min [facility] Systolic blood pressure 2023-04-09 14:50:00 113 mm[Hg] [facility] [place] Diastolic blood pressure 2023-04-09 14:50:00 88 mm[Hg] [facility] Heart rate 2023-04-09 14:50:00 77 /min [facility] [place] Respiratory rate 2023-04-09 14:50:00 11 /min [facility] [place] Oxygen saturation in Arterial blood by Pulse oximetry 2023-04-09 14:50:00 98 /min [facility] Body temperature 2023-04-09 14:24:00 36.17 [place] [facility] Body height 2023-04-09 12:41:00 162.6 cm [facility] Body weight 2023-04-09 12:41:00 91.627 kg [facility] BMI 2023-04-09 12:41:00 34.67 kg/m2 [facility] [place] Systolic blood pressure 2023-04-09 12:41:00 136 mm[Hg] [facility] [place] Diastolic blood pressure 2023-04-09 12:41:00 93 mm[Hg] [facility] Heart rate 2023-04-09 12:41:00 79 /min [facility] [place] Body temperature 2023-04-09 12:41:00 36.17 [place] [facility] [place] Respiratory rate 2023-04-09 12:41:00 16 /min [facility] Body height 2023-04-09 12:41:00 162.6 cm [facility] [place] Body weight 2023-04-09 12:41:00 91.627 kg [facility] BMI 2023-04-09 12:41:00 34.67 kg/m2 [facility] [place] Oxygen saturation in Arterial blood by Pulse oximetry 2023-04-09 12:41:00 99 /min [facility] Systolic blood pressure 2023-03-29 19:30:00 115 mm[Hg] [facility] Diastolic blood pressure 2023-03-29 19:30:00 78 mm[Hg] [facility] Heart rate 2023-03-29 19:30:00 85 /min [facility] Body temperature 2023-03-29 19:26:00 36.61 [place] [facility] [place] Respiratory rate 2023-03-29 19:26:00 18 /min [facility] Body height 2023-03-29 19:26:00 162.6 cm [facility] Body weight 2023-03-29 19:26:00 93.577 kg [facility] BMI 2023-03-29 19:26:00 35.41 kg/m2 [facility] [place] Oxygen saturation in Arterial blood by Pulse oximetry 2023-03-29 19:26:00 99 /min [facility] Systolic blood pressure 2023-03-13 19:14:00 118 mm[Hg] [facility] Diastolic blood pressure 2023-03-13 19:14:00 81 mm[Hg] [facility] Heart rate 2023-03-13 19:14:00 74 /min [facility] Body height 2023-03-13 19:14:00 162.6 cm [facility] Body weight 2023-03-13 19:14:00 93.441 kg [facility] BMI 2023-03-13 19:14:00 35.36 kg/m2 [facility] [place] Oxygen saturation in Arterial blood by Pulse oximetry 2023-03-13 19:14:00 99 /min [facility] Systolic blood pressure 2023-03-06 20:09:00 119 mm[Hg] [facility] Diastolic blood pressure 2023-03-06 20:09:00 85 mm[Hg] [facility] Heart rate 2023-03-06 20:09:00 79 /min [facility] Respiratory rate 2023-03-06 20:09:00 16 /min [facility] Body height 2023-03-06 20:09:00 162.6 cm [facility] Body weight 2023-03-06 20:09:00 93.804 kg [facility] BMI 2023-03-06 20:09:00 35.50 kg/m2 [facility] [place] Oxygen saturation in Arterial blood by Pulse oximetry 2023-03-06 20:09:00 98 /min [facility] Systolic blood pressure 2023-02-19 19:12:00 121 mm[Hg] [facility] Diastolic blood pressure 2023-02-19 19:12:00 84 mm[Hg] [facility] Heart rate 2023-02-19 19:12:00 83 /min [facility] Body height 2023-02-19 19:12:00 162.6 cm [facility] Body weight 2023-02-19 19:12:00 93.35 kg [facility] BMI 2023-02-19 19:12:00 35.33 kg/m2 [facility] Systolic blood pressure 2023-01-30 19:51:00 118 mm[Hg] [facility] Diastolic blood pressure 2023-01-30 19:51:00 80 mm[Hg] [facility] Heart rate 2023-01-30 19:51:00 89 /min [facility] Respiratory rate 2023-01-30 19:51:00 18 /min [facility] Body height 2023-01-30 19:51:00 162.6 cm [facility] Body weight 2023-01-30 19:51:00 93.577 kg [facility] BMI 2023-01-30 19:51:00 35.41 kg/m2 [facility] [place] Oxygen saturation in Arterial blood by Pulse oximetry 2023-01-30 19:51:00 97 /min [facility] Systolic blood pressure 2023-01-19 19:30:00 109 mm[Hg] [facility] Diastolic blood pressure 2023-01-19 19:30:00 77 mm[Hg] [facility] Heart rate 2023-01-19 19:30:00 92 /min [facility] Body temperature 2023-01-19 19:30:00 36.56 [place] [facility] Respiratory rate 2023-01-19 19:30:00 18 /min [facility] Body height 2023-01-19 19:30:00 162.6 cm [facility] Body weight 2023-01-19 19:30:00 93.668 kg [facility] BMI 2023-01-19 19:30:00 35.45 kg/m2 [facility] Oxygen saturation in Arterial blood by Pulse oximetry 2023-01-19 19:30:00 98 /min [facility] Systolic blood pressure 2023-01-09 14:59:00 112 mm[Hg] [facility] Diastolic blood pressure 2023-01-09 14:59:00 80 mm[Hg] [facility] Heart rate 2023-01-09 14:59:00 78 /min [facility] Respiratory rate 2023-01-09 14:59:00 16 /min [facility] [facility] Body height 2023-01-09 14:59:00 162.6 cm [facility] Body weight 2023-01-09 14:59:00 94.348 kg [facility] BMI 2023-01-09 14:59:00 35.70 kg/m2 [facility] Oxygen saturation in Arterial blood by Pulse oximetry 2023-01-09 14:59:00 98 /min [facility] Systolic blood pressure 2023-01-01 18:36:00 131 mm[Hg] Patient just had a starbucks drink [facility] Diastolic blood pressure 2023-01-01 18:36:00 92 mm[Hg] Patient just had a starbucks drink [facility] Heart rate 2023-01-01 18:36:00 86 /min [facility] Body temperature 2023-01-01 18:36:00 36.44 [place] [facility] Body height 2023-01-01 18:36:00 162.6 cm [facility] Body weight 2023-01-01 18:36:00 94.348 kg [facility] BMI 2023-01-01 18:36:00 35.70 kg/m2 [facility] Oxygen saturation in Arterial blood by Pulse oximetry 2023-01-01 18:36:00 96 /min [facility] Systolic blood pressure 2023-01-01 15:13:00 112 mm[Hg] [facility] Diastolic blood pressure 2023-01-01 15:13:00 80 mm[Hg] [facility] Heart rate 2023-01-01 15:13:00 76 /min [facility] Respiratory rate 2023-01-01 15:13:00 18 /min [facility] Body height 2023-01-01 15:13:00 162.6 cm [facility] Body weight 2023-01-01 15:13:00 94.348 kg [facility] BMI 2023-01-01 15:13:00 35.70 kg/m2 [facility] Systolic blood pressure 2022-12-11 16:20:00 100 mm[Hg] [facility] Diastolic blood pressure 2022-12-11 16:20:00 79 mm[Hg] [facility] Heart rate 2022-12-11 16:20:00 79 /min [facility] Respiratory rate 2022-12-11 16:20:00 16 /min [facility] Body temperature 2022-12-11 14:44:00 36.67 [place] [facility] Body height 2022-12-11 14:44:00 162.6 cm [facility] Body weight 2022-12-11 14:44:00 93.441 kg [facility] BMI 2022-12-11 14:44:00 35.36 kg/m2 [facility] Oxygen saturation in Arterial blood by Pulse oximetry 2022-12-11 14:44:00 100 /min [facility] Systolic blood pressure 2022-11-29 16:18:00 115 mm[Hg] [facility] Diastolic blood pressure 2022-11-29 16:18:00 80 mm[Hg] [facility] Heart rate 2022-11-29 16:18:00 77 /min [facility] Body temperature 2022-11-29 16:18:00 36.67 [place] [facility] Respiratory rate 2022-11-29 16:18:00 18 /min [facility] Body height 2022-11-29 16:18:00 162.6 cm [facility] Body weight 2022-11-29 16:18:00 95.119 kg [facility] BMI 2022-11-29 16:18:00 35.99 kg/m2 [facility] Oxygen saturation in Arterial blood by Pulse oximetry 2022-11-29 16:18:00 98 /min [facility] Systolic blood pressure 2022-10-25 19:08:00 134 mm[Hg] [facility] Diastolic blood pressure 2022-10-25 19:08:00 84 mm[Hg] [facility] Heart rate 2022-10-25 19:08:00 79 /min [facility] Body temperature 2022-10-25 19:08:00 36.33 [place] [facility] Respiratory rate 2022-10-25 19:08:00 16 /min [facility] Body height 2022-10-25 19:08:00 162.6 cm [facility] Body weight 2022-10-25 19:08:00 99.02 kg [facility] BMI 2022-10-25 19:08:00 37.47 kg/m2 [facility] Oxygen saturation in Arterial blood by Pulse oximetry 2022-10-25 19:08:00 99 /min [facility] Systolic blood pressure 2022-10-24 14:40:00 116 mm[Hg] [facility] Diastolic blood pressure 2022-10-24 14:40:00 82 mm[Hg] [facility] Heart rate 2022-10-24 14:40:00 73 /min [facility] Body height 2022-10-24 14:40:00 162.6 cm [facility] Body weight 2022-10-24 14:40:00 99.791 kg [facility] BMI 2022-10-24 14:40:00 37.76 kg/m2 [facility] Oxygen saturation in Arterial blood by Pulse oximetry 2022-10-24 14:40:00 98 /min [facility] Systolic blood pressure 2022-10-18 20:33:00 126 mm[Hg] [facility] Diastolic blood pressure 2022-10-18 20:33:00 85 mm[Hg] [facility] Heart rate 2022-10-18 20:33:00 83 /min [facility] Body height 2022-10-18 20:33:00 162.6 cm [facility] Body weight 2022-10-18 20:33:00 98.385 kg [facility] BMI 2022-10-18 20:33:00 37.23 kg/m2 [facility] Oxygen saturation in Arterial blood by Pulse oximetry 2022-10-18 20:33:00 99 /min [facility] Systolic blood pressure 2022-09-21 17:31:00 125 mm[Hg] [facility] Diastolic blood pressure 2022-09-21 17:31:00 81 mm[Hg] [facility] Heart rate 2022-09-21 17:31:00 77 /min [facility] Body temperature 2022-09-21 17:31:00 37.17 [place] [facility] Body height 2022-09-21 17:31:00 162.6 cm [facility] Body weight 2022-09-21 17:31:00 98.431 kg [facility] BMI 2022-09-21 17:31:00 37.25 kg/m2 [facility] Oxygen saturation in Arterial blood by Pulse oximetry 2022-09-21 17:31:00 97 /min [facility] Systolic blood pressure 2022-09-15 17:50:00 96 mm[Hg] [facility] Diastolic blood pressure 2022-09-15 17:50:00 67 mm[Hg] [facility] Heart rate 2022-09-15 17:50:00 81 /min [facility] Respiratory rate 2022-09-15 17:50:00 18 /min [facility] Body temperature 2022-09-15 16:40:00 37 [place] [facility] Body height 2022-09-15 16:40:00 162.6 cm [facility] Body weight 2022-09-15 16:40:00 102.513 kg [facility] BMI 2022-09-15 16:40:00 38.79 kg/m2 [facility] Oxygen saturation in Arterial blood by Pulse oximetry 2022-09-15 16:40:00 100 /min [facility] Systolic blood pressure 2022-09-13 15:34:00 114 mm[Hg] [facility] Diastolic blood pressure 2022-09-13 15:34:00 79 mm[Hg] [facility] Heart rate 2022-09-13 15:34:00 78 /min [facility] Body weight 2022-09-13 15:34:00 102.83 kg [facility] BMI 2022-09-13 15:34:00 38.91 kg/m2 [facility] Oxygen saturation in Arterial blood by Pulse oximetry 2022-09-13 15:34:00 98 /min [facility] Systolic blood pressure 2022-09-12 15:38:00 123 mm[Hg] [facility] Diastolic blood pressure 2022-09-12 15:38:00 71 mm[Hg] [facility] Heart rate 2022-09-12 15:38:00 70 /min [facility] Body temperature 2022-09-12 15:38:00 36.94 [place] [facility] Respiratory rate 2022-09-12 15:38:00 16 /min [facility] Body height 2022-09-12 15:38:00 162.6 cm [facility] Body weight 2022-09-12 15:38:00 102.059 kg [facility] BMI 2022-09-12 15:38:00 38.62 kg/m2 [facility] Oxygen saturation in Arterial blood by Pulse oximetry 2022-09-12 15:38:00 98 /min [facility] Systolic blood pressure 2022-08-21 15:34:00 123 mm[Hg] [facility] Diastolic blood pressure 2022-08-21 15:34:00 85 mm[Hg] [facility] Heart rate 2022-08-21 15:34:00 70 /min [facility] Body height 2022-08-21 15:34:00 162.6 cm [facility] Body weight 2022-08-21 15:34:00 100.699 kg [facility] BMI 2022-08-21 15:34:00 38.11 kg/m2 [facility] Systolic blood pressure 2022-08-16 19:15:00 135 mm[Hg] [facility] Diastolic blood pressure 2022-08-16 19:15:00 96 mm[Hg] [facility] Heart rate 2022-08-16 19:15:00 74 /min [facility] Respiratory rate 2022-08-16 19:15:00 20 /min [facility] Body height 2022-08-16 19:15:00 162.6 cm [facility] Body weight 2022-08-16 19:15:00 99.791 kg [facility] BMI 2022-08-16 19:15:00 37.76 kg/m2 [facility] Oxygen saturation in Arterial blood by Pulse oximetry 2022-08-16 19:15:00 98 /min [facility] Systolic blood pressure 2022-08-15 17:30:00 114 mm[Hg] [facility] Diastolic blood pressure 2022-08-15 17:30:00 79 mm[Hg] [facility] Heart rate 2022-08-15 17:30:00 81 /min [facility] Body temperature 2022-08-15 17:30:00 37 [place] [facility] Respiratory rate 2022-08-15 17:30:00 18 /min [facility] Body height 2022-08-15 17:30:00 162.6 cm [facility] Body weight 2022-08-15 17:30:00 99.791 kg [facility] BMI 2022-08-15 17:30:00 37.76 kg/m2 [facility] Systolic blood pressure 2022-08-02 19:33:00 132 mm[Hg] [facility] Diastolic blood pressure 2022-08-02 19:33:00 90 mm[Hg] [facility] Heart rate 2022-08-02 19:33:00 73 /min [facility] Body temperature 2022-08-02 19:33:00 36.61 [place] [facility] Respiratory rate 2022-08-02 19:33:00 18 /min [facility] Body height 2022-08-02 19:33:00 162.6 cm [facility] Body weight 2022-08-02 19:33:00 97.977 kg [facility] BMI 2022-08-02 19:33:00 37.08 kg/m2 [facility] Systolic blood pressure 2022-07-24 15:18:00 130 mm[Hg] [facility] Diastolic blood pressure 2022-07-24 15:18:00 86 mm[Hg] [facility] Heart rate 2022-07-24 15:18:00 73 /min [facility] Body height 2022-07-24 15:18:00 162.6 cm [facility] Body weight 2022-07-24 15:18:00 100.245 kg [facility] BMI 2022-07-24 15:18:00 37.93 kg/m2 [facility] Oxygen saturation in Arterial blood by Pulse oximetry 2022-07-24 15:18:00 98 /min [facility] Systolic blood pressure 2022-07-18 16:04:00 128 mm[Hg] [facility] Diastolic blood pressure 2022-07-18 16:04:00 86 mm[Hg] [facility] Heart rate 2022-07-18 16:04:00 83 /min [facility] Body height 2022-07-18 16:04:00 162.6 cm [facility] Body weight 2022-07-18 16:04:00 97.523 kg [facility] BMI 2022-07-18 16:04:00 36.90 kg/m2 [facility] Oxygen saturation in Arterial blood by Pulse oximetry 2022-07-18 16:04:00 100 /min [facility] Systolic blood pressure 2022-07-17 17:07:00 122 mm[Hg] [facility] Diastolic blood pressure 2022-07-17 17:07:00 90 mm[Hg] [facility] Heart rate 2022-07-17 17:07:00 74 /min [facility] Body temperature 2022-07-17 17:07:00 36.72 [place] [facility] Respiratory rate 2022-07-17 17:07:00 16 /min [facility] Body height 2022-07-17 17:07:00 162.6 cm [facility] Body weight 2022-07-17 17:07:00 97.569 kg [facility] BMI 2022-07-17 17:07:00 36.92 kg/m2 [facility] Oxygen saturation in Arterial blood by Pulse oximetry 2022-07-17 17:07:00 98 /min [facility] Systolic blood pressure 2022-06-30 21:20:00 101 mm[Hg] [facility] Diastolic blood pressure 2022-06-30 21:20:00 70 mm[Hg] [facility] Heart rate 2022-06-30 21:20:00 76 /min [facility] Respiratory rate 2022-06-30 21:10:00 18 /min [facility] Body temperature 2022-06-30 20:27:00 36.67 [place] [facility] Body height 2022-06-30 20:27:00 162.6 cm [facility] Body weight 2022-06-30 20:27:00 90.719 kg [facility] BMI 2022-06-30 20:27:00 34.33 kg/m2 [facility] Oxygen saturation in Arterial blood by Pulse oximetry 2022-06-30 20:27:00 95 /min [facility] Systolic blood pressure 2022-06-20 16:23:00 117 mm[Hg] [facility] Diastolic blood pressure 2022-06-20 16:23:00 77 mm[Hg] [facility] Heart rate 2022-06-20 16:23:00 87 /min [facility] Body temperature 2022-06-20 16:23:00 37 [place] [facility] Respiratory rate 2022-06-20 16:23:00 18 /min [facility] Body height 2022-06-20 16:23:00 162.6 cm [facility] Body weight 2022-06-20 16:23:00 95.709 kg [facility] BMI 2022-06-20 16:23:00 36.22 kg/m2 [facility] Body weight 2022-06-09 15:45:00 91.173 kg [facility] BMI 2022-06-09 15:45:00 34.50 kg/m2 [facility] Systolic blood pressure 2022-05-16 15:31:00 133 mm[Hg] [facility] Diastolic blood pressure 2022-05-16 15:31:00 87 mm[Hg] [facility] Heart rate 2022-05-16 15:31:00 87 /min [facility] Respiratory rate 2022-05-16 15:31:00 12 /min [facility] Body height 2022-05-16 15:31:00 162.6 cm [facility] Body weight 2022-05-16 15:31:00 91.173 kg [facility] BMI 2022-05-16 15:31:00 34.50 kg/m2 [facility] Oxygen saturation in Arterial blood by Pulse oximetry 2022-05-16 15:31:00 99 /min [facility] Procedures Procedure Date / Time Performed Performing Clinician Source POCT HEMOGLOBIN A1C TEST 2023-10-15 20:36:00 Marie Garzon [facility] FL TIME OR (NON-REPORTABLE) 2023-09-12 21:03:57 Curtis Morley Scooter [facility] POCT GLUCOSE (AUTOMATED) 2023-09-12 20:21:00 Curtis Morley [facility] POCT TEST 2023-09-12 20:03:00 Curtis Morley Scooter [facility] CONSENT/REFUSAL FOR DIAGNOSI S AND TREATMENT 2023-09-12 19:54:45 Doctor Unassigned, [place] [facility] ANTIPHOSPHOLIPID ANTIBODY EVALUATION-SST 2023-09-10 22:21:00 Brianna Figueroasol [facility] ANTIPHOSPHOLIPID ANTIBODY TE STS AND EVALUATION 2023-09-10 22:21:00 Brianna Figueroasol [facility] ANTIPHOSPHOLIPID ANTIBODY EVALUATION-LT BLUE 2023-09-10 22:21:00 Brianna Figueroasol [facility] CONSENT FOR CONTRACEPTION 2023-09-10 06:01:00 Doctor Unassigned, [place] [facility] FLU VACC ([id number]), 6 MO-6 4 YRS, .5ML, IM, QUAD (FLUCELVAX) 2023-06-06 18:56:21 Taylor Verdin [facility] PNEUMOCOCCAL VACCINE, 23-RUTHIE ENT (PNEUMOVAX) 2023-06-06 18:56:20 Taylor Verdin [facility] FL TIME OR (NON-REPORTABLE) 2023-05-11 19:01:23 Curtis Morley [place] [facility] POCT GLUCOSE (AUTOMATED) 2023-05-11 18:11:00 Curtis Morley [place] [facility] RPR (DX) W/REFL TITER AND$CONFIRMATORY TESTING-Q 2023-05-02 18:53:00 Ez Palacio [facility] POCT TEST 2023-05-02 00:00:00 Ez Palacio [facility] SURGICAL PATHOLOGY EXAM 2023-04-09 14:05:00 Norbert Diaz [facility] ESOPHAGOGASTRODUODENOSCOPY 2023-04-09 13:44:00 Norbert Diaz [facility] EGD (ENDO) 2023-04-09 13:39:47 Taylor Verdin [facility] EGD (ENDO) 2023-04-09 13:39:47 Taylor Verdin [facility] POCT GLUCOSE (AUTOMATED) 2023-04-09 13:03:00 Norbert Diaz [facility] POCT GLUCOSE (AUTOMATED) 2023-04-09 13:03:00 Norbert Diaz [facility] ASSIGNMENT OF BENEFITS 2023-04-09 12:30:17 Doctor Unassigned, [place] [facility] POCT TEST 2023-04-09 00:00:00 Tacos Roman [facility] POCT TEST 2023-04-09 00:00:00 Taocs Roman [facility] DME/SUPPLY JUSTIFICATION 2023-03-19 05:01:00 Doctor Unassigned, [place] [facility] PATIENT QUESTIONNAIRE 2023-02-18 05:01:00 Doctor Unassigned, [place] [facility] DME/SUPPLY JUSTIFICATION 2023-01-30 05:01:00 Doctor Unassigned, [place] [facility] COMP. METABOLIC PANEL ([id number]) 2023-01-09 15:40:00 Harjinder James [facility] SEDIMENTATION RATE 2023-01-09 15:40:00 Harjinder James [facility] CBC WITH DIFF 2023-01-09 15:40:00 Harjinder James [facility] VITAMIN D, 25-OH 2023-01-09 15:40:00 Harjinder James [facility] ANTICARDIOLIPIN ANTIBODIES 2023-01-01 15:54:00 Ez Palacio [facility] ANTI-B2 GLYCOPROTEIN I AB 2023-01-01 15:54:00 Ez Palacio [facility] DISCLOSURE AND CONSENT, MEDI MAYTE AND SURGICAL PROCEDURES 2023-01-01 05:01:00 Doctor Unassigned, [place] [facility] FL TIME OR (NON-REPORTABLE) 2022-12-11 15:57:25 Curtis Morley [facility] POCT GLUCOSE (AUTOMATED) 2022-12-11 15:06:00 Curtis Morley [facility] POCT TEST 2022-12-11 14:45:00 Curtis Morley [facility] POCT SARS-COV-2 ANTIGEN (BIN AX NOW) 2022-11-29 17:25:00 Taylor Verdin [facility] POCT MOLECULAR STREP 2022-11-29 17:07:00 Taylor Verdin [facility] EMG/NCV 2022-10-26 05:01:00 Skyler Ferrari [facility] AUTHORIZATION TO RELEASE PHI TO [facility] 2022-10-18 06:01:00 Doctor Unassigned, [place] [facility] FL TIME OR (NON-REPORTABLE) 2022-09-15 17:38:14 Curtis Morley [facility] POCT GLUCOSE (AUTOMATED) 2022-09-15 16:38:00 Curtis Morley [facility] POCT TEST 2022-09-15 16:30:00 Curtis Morley [facility] CONSENT/REFUSAL FOR DIAGNOSI S AND TREATMENT 2022-09-12 15:19:35 Doctor Unassigned, [place] [facility] MISCELLANEOUS SEND OUT TEST 2022-08-21 16:05:00 Ez Palacio [facility] DIAGNOSTIC MANAGEMENT TEAM; SPECIAL COAGULATION EVALUATION 2022-08-21 16:05:00 Ez Palacio [facility] ANTIPHOSPHOLIPID ANTIBODY TE STS AND EVALUATION 2022-08-21 16:05:00 Ez Palacio [facility] ANTIPHOSPHOLIPID ANTIBODY EVALUATION-LT BLUE 2022-08-21 16:05:00 Ez Palacio [facility] ANTICARDIOLIPIN ANTIBODIES 2022-08-21 16:05:00 Ez Palacio [facility] ANTI-B2 GLYCOPROTEIN I AB 2022-08-21 16:05:00 Ez Palacio [facility] ANTIPHOSPHOLIPID ANTIBODY EVALUATION-SST 2022-08-21 16:05:00 Ez Palacio [facility] MR LUMBAR SPINE WO CONTRAST 2022-08-16 20:31:57 Skyler Ferrari [facility] US PELVIS COMPLETE WITH TRANSVAGINAL 2022-07-26 15:39:56 Hakeem [facility] POCT TEST 2022-07-17 00:00:00 [facility] FL TIME OR (NON-REPORTABLE) 2022-06-30 21:00:00 Curtis Morley [facility] POCT TEST 2022-06-30 20:15:00 Curtis Morley [facility] POCT TEST 2022-06-20 00:00:00 [place]um[place] [facility] DISCLOSURE AND CONSENT, MEDI MAYTE AND SURGICAL PROCEDURES 2022-06-16 05:01:00 Doctor Unassigned, [place] [facility] Encounters Start Date/Time End Date/Time Encounter Type Admission Type Attending [facility] Care Facility Care Department Encounter ID Source 2021-11-08 15:18:20 Outpatient AZALIA ORELLANA [facility] CASSANDRA [id number] [facility] 2021-06-13 16:13:46 Emergency [facility] [id number] [facility] 2021-06-12 19:13:39 Outpatient AZALIA MICHEL [facility] CASSANDRA [id number] [facility] 2021-06-12 02:02:49 Outpatient CURTIS MORLEY [facility] [id number] [facility] 2021-06-10 22:07:19 Outpatient NORBERT MARSH GABRIEL [facility] GIDemetri [id number] [facility] 2023-12-12 15:40:00 2023-12-12 15:40:00 Outpatient R LAMBERT TAYLOR [facility] [id number] [facility] 2023-11-07 00:00:00 2023-11-07 00:00:00 Telephone Richa Dominguez [facility] MEDICAL OFFICE BUILDING 1.840.114 350.1.13.10 4.2.7.2.686 [id number] [facility] 2023-11-05 00:00:00 2023-11-05 00:00:00 Refill Lambert SueTaylor Tameka [facility] MEDICAL OFFICE BUILDING 1.84.114 350.1.13.10 4.2.7.2.686 [id number] [id number] [facility] 2023-10-16 00:00:00 2023-10-16 00:00:00 Patient Secure Msg Marie Garzon [facility] MEDICAL OFFICE BUILDING 1.84.114 350.1.13.10 4.2.7.2.686 [id number] [facility] 2023-10-15 15:30:00 2023-10-15 15:45:00 Service Order Dispatcher Chief Visit Lab, Raj - [facility] MEDICAL OFFICE BUILDING 1.840.114 350.1.13.10 4.2.7.2.686 [id number] [facility] 2023-10-15 15:30:00 2023-10-15 15:30:00 Outpatient R MARIE GARZON [facility] [id number] [facility] 2023-10-15 14:30:00 2023-10-15 15:18:52 Office Visit Marie Garzon [facility]ITH?[facility] MEDICAL OFFICE BUILDING 1.840.114 350.1.13.10 4.2.7.2.686 [id number] [facility] 2023-10-13 00:00:00 2023-10-13 00:00:00 Refill Taylor Verdin [facility] BU[facility] 1.84.114 350.1.13.10 4.2.7.2.686 [id number] 044 [id number] [facility] 2023-10-08 13:00:00 2023-10-08 13:00:00 Outpatient R BETH PHAM [facility] [id number] [facility] 2023-09-25 00:00:00 2023-09-25 00:00:00 Telephone [place] [facility] BUILDING 1.84.114 350.1.13.10 4.2.7.2.686 [id number] [facility] 2023-09-25 00:00:00 2023-09-25 00:00:00 Telephone [place] [facility] BUILDING 1.84.114 350.1.13.10 4.2.7.2.686 [id number] [facility] 2023-09-20 00:00:00 2023-09-20 00:00:00 Refill Beth Pham [facility] 1.114 350.1.13.10 4.2.7.2.686 [id number] [id number] [facility] 2023-09-20 00:00:00 2023-09-20 00:00:00 Refill Taylor Verdin [facility] MEDICAL OFFICE BUILDING 1.84.114 350.1.13.10 4.2.7.2.686 [id number] 044 [id number] [facility] 2023-09-14 00:00:00 2023-09-14 00:00:00 Patient Secure Msg Doctor Unassigned, [place] [facility] BUILDING 1.84.114 350.1.13.10 4.2.7.2.686 [id number] [facility] 2023-09-13 00:00:00 2023-09-13 00:00:00 Telephone Curtis Morley [facility] M[facility]ISPEC [facility]ALTY [facility] 1.2840.114 350.1.13.10 4.2.7.2.686 [id number] 011 [id number] [facility] 2023-09-12 14:13:36 2023-09-12 23:59:00 [facility] 1..114 350.1.13.10 4.2.7.2.686 [id number] [id number] [facility] 2023-09-12 14:30:00 2023-09-12 15:00:00 [facility] [place] [facility] 1..114 350.1.13.10 4.2.7.2.686 [id number] 011 [id number] [facility] 2023-09-12 14:30:00 2023-09-12 14:30:00 Outpatient R PEYMANCURTIS [facility] [id number] [facility] 2023-09-12 00:00:00 2023-09-12 00:00:00 Orders Only Doctor Unassigned, [place] [facility] 1..114 350.1.13.10 4.2.7.2.686 [id number] [facility] 2023-09-10 16:15:00 2023-09-10 16:30:00 Service Order Dispatcher Chief Visit 2, Adc Lab Carmen Triplett [facility] BUILDING 1.2840.114 350.1.13.10 4.2.7.2.686 [id number] [facility] 2023-09-10 15:30:00 2023-09-10 16:15:28 Outpatient R LISA S, CARMEN KERR-HYACINTH S, CARMEN [facility] [id number] [facility] 2023-09-10 15:30:00 2023-09-10 16:15:28 Office Visit KerrPepper porter Carmen [facility] 1.840.114 350.1.13.10 4.2.7.2.686 [id number] [facility] 2023-09-10 00:00:00 2023-09-10 00:00:00 Telephone Curtis Morley [facility] MULTISPEC [facility]ALTY [facility] 1.840.114 350.1.13.10 4.2.7.2.686 [id number] 011 [id number] [facility] 2023-09-10 00:00:00 2023-09-10 00:00:00 Orders Only Doctor Unassigned, [place] [facility] 1.840.114 350.1.13.10 4.2.7.2.686 [id number] [id number] [facility] 2023-08-24 00:00:00 2023-08-24 00:00:00 Refill Beth Pham [facility] MULTISPEC [facility]TY [facility] 1.840.114 350.1.13.10 4.2.7.2.686 [id number] [id number] [facility] 2023-08-08 00:00:00 2023-08-08 00:00:00 [facility]ill [facility] 1..114 350.1.13.10 4.2.7.2.686 [id number] 044 [id number] [facility] 2023-07-20 14:30:00 2023-07-20 14:30:00 Outpatient R KERR-HYACINTH S, CARMEN KERR-HYACINTH S, CARMEN [facility] [id number] [facility] 2023-07-20 14:30:00 2023-07-20 14:30:00 Outpatient R KERR-HYACINTH S, CARMEN KERR-HYACINTH S, CARMEN [facility] [id number] [facility] 2023-07-20 00:00:00 2023-07-20 00:00:00 Refill Richa Dominguez [facility] MEDICAL OFFICE BUILDING 1..840.114 350.1.13.10 4.2.7.2.686 [id number] [facility] 2023-07-16 13:30:00 2023-07-16 13:30:00 Outpatient R RICHA DOMINGUEZ CHAUDHRY [facility] [id number] [facility] 2023-06-28 00:00:00 2023-06-28 00:00:00 Refill Taylor Verdin [facility] MEDICAL OFFICE BUILDING 1..840.114 350.1.13.10 4.2.7.2.686 [id number] 044 [id number] [facility] 2023-06-25 13:30:00 2023-06-25 15:07:28 Outpatient R BETH PHAM [facility] [id number] [facility] 2023-06-25 13:30:00 2023-06-25 15:07:28 Office Visit Beth Pham [facility] 1..840.114 350.1.13.10 4.2.7.2.686 [id number] [id number] [facility] 2023-06-25 00:00:00 2023-06-25 00:00:00 Refill Taylor Verdin [facility] MEDICAL OFFICE BUILDING 1.2840.114 350.1.13.10 4.2.7.2.686 [id number] 044 [id number] [facility] 2023-06-15 00:00:00 2023-06-15 00:00:00 Refill Beth Pham [facility] 1.2840.114 350.1.13.10 4.2.7.2.686 [id number] 011 [id number] [facility] 2023-06-14 00:00:00 2023-06-14 00:00:00 Refill Richa Dominguez [facility] MEDICAL OFFICE BUILDING 1.284.114 350.1.13.10 4.2.7.2.686 [id number] [facility] 2023-06-13 00:00:00 2023-06-13 00:00:00 Patient Secure MsRicha Clifton [facility] MEDICAL OFFICE BUILDING 1.284.114 350.1.13.10 4.2.7.2.686 [id number] 220 [id number] [facility] 2023-06-11 13:30:00 2023-06-11 14:13:46 Outpatient R RICHA DOMINGUEZ Y[facility] [id number] [facility] 2023-06-11 13:30:00 2023-06-11 14:13:46 Office Visit KeylaRicha [facility] MEDICAL OFFICE BUILDING 1.2840.114 350.1.13.10 4.2.7.2.686 [id number] [facility] 2023-06-06 14:15:00 2023-06-06 14:30:00 Service Order Dispatcher Chief Visit Lab, Taylor De Jesus [facility] MED[facility] OFF[facility] BUILDING 1.840.114 350.1.13.10 4.2.7.2.686 [id number] [facility] 2023-06-06 13:40:00 2023-06-06 14:09:23 Outpatient R TAYLOR VERDIN [facility] [id number] [facility] 2023-06-06 13:40:00 2023-06-06 14:09:23 Office Visit Taylor Verdin [facility] MEDICAL OFFICE BUILDING 1.0.114 350.1.13.10 4.2.7.2.686 [id number] 044 [id number] [facility] 2023-05-31 00:00:00 2023-05-31 00:00:00 Refill Taylor Verdin [facility] MEDICAL OFFICE BUILDING 1..114 350.1.13.10 4.2.7.2.686 [id number] 044 [id number] [facility] 2023-05-22 00:00:00 2023-05-22 00:00:00 Patient Secure Msg Doctor Unassigned, [place] [facility] 1.0.114 350.1.13.10 4.2.7.2.686 [id number] [facility] 2023-05-15 00:00:00 2023-05-15 00:00:00 Telephone Curtis Morley [facility] MULTISPEC [facility]ALTY [facility] 1..114 350.1.13.10 4.2.7.2.686 [id number] 011 [id number] [facility] 2023-05-15 00:00:00 2023-05-15 00:00:00 Telephone Curtis Morley [facility] MULTISPEC [facility] 1.0.114 350.1.13.10 4.2.7.2.686 [id number] 011 [id number] [facility] 2023-05-11 13:16:47 2023-05-11 23:59:00 Outpatient R PEYMANCURTIS [facility] [id number] [facility] 2023-05-11 13:16:47 2023-05-11 23:59:00 Hospital Encounter Curtis Morley [facility] MULTISPEC IALTY [place] [facility] 1.2.840.114 350.1.13.10 4.2.7.2.686 [id number] [facility] 2023-05-11 13:30:00 2023-05-11 14:00:00 Office Visit Curtis [facility]ley [facility] 1.2.840.114 350.1.13.10 4.2.7.2.686 [id number] 011 [id number] [facility] 2023-05-09 00:00:00 2023-05-09 00:00:00 Telephone PeymanCurtis [facility] 1.2.840.114 350.1.13.10 4.2.7.2.686 [id number] 011 [id number] [facility] 2023-05-09 00:00:00 2023-05-09 00:00:00 Patient Secure Msg Doctor Unassigned, [place] [facility] 1.2.840.114 350.1.13.10 4.2.7.2.686 [id number] 011 [id number] [facility] 2023-05-08 00:00:00 2023-05-08 00:00:00 Telephone Ez Palacio [facility] 1.2840.114 350.1.13.10 4.2.7.2.686 [id number] [facility] 2023-05-07 13:30:00 2023-05-07 13:30:00 Outpatient ELDER ORTIZ [facility] [id number] [facility] 2023-05-05 00:00:00 2023-05-05 00:00:00 Refill Taylor Verdin [facility] BUILDING 1.840.114 350.1.13.10 4.2.7.2.686 [id number] [id number] [facility] 2023-05-02 13:00:00 2023-05-02 13:28:05 [facility] [id number] [facility] 2023-05-02 13:00:00 2023-05-02 13:28:05 Office Visit Ez Palacio [facility] 1.840.114 350.1.13.10 4.2.7.2.686 [id number] [facility] 2023-05-02 00:00:00 2023-05-02 00:00:00 [facility] 1.840.114 350.1.13.10 4.2.7.2.686 [id number] [facility] 2023-05-01 00:00:00 2023-05-01 00:00:00 Refill Richa Dominguez [facility] BU[facility] 1.84.114 350.1.13.10 4.2.7.2.686 [id number] [facility] 2023-04-09 07:30:00 2023-04-09 10:06:00 Outpatient R NORBERT DIAZ GABRIEL [facility] [id number] [facility] 2023-04-09 07:30:00 2023-04-09 10:06:00 Hospital Encounter Norbert Diaz [facility] 1.2.840.114 350.1.13.10 4.2.7.2.686 [id number] [id number] [facility] 2023-04-09 08:54:00 2023-04-09 09:16:00 Anesthesia Event Yvonne Mehta Carlos [facility] 1.2840.114 350.1.13.10 4.2.7.2.686 [id number] [id number] [facility] 2023-04-09 08:00:00 2023-04-09 08:30:00 Surgery Norbert Diaz [facility] [place] 1.840.114 350.1.13.10 4.2.7.2.686 [id number] 020 [id number] [facility] 2023-04-09 00:00:00 2023-04-09 00:00:00 Orders Only Doctor Unassigned, [place] [facility] 1.840.114 350.1.13.10 4.2.7.2.686 [id number] [facility] 2023-04-07 00:00:00 2023-04-07 00:00:00 Taylor Vega [facility] MEDICAL OFFICE BUILDING 1.840.114 350.1.13.10 4.2.7.2.686 [id number] 044 [id number] [facility] 2023-04-05 14:00:00 2023-04-05 15:28:11 Outpatient R EAMON CARRASCO RYAJA [facility] [id number] [facility] 2023-04-05 14:00:00 2023-04-05 15:28:11 Office Visit Eamon Carrasco [facility] MULTISPEC [facility]TY [facility] 1.840.114 350.1.13.10 4.2.7.2.686 [id number] [id number] [facility] 2023-04-05 00:00:00 2023-04-05 00:00:00 Telephone Beth Pham [facility] MULTISPEC IALTY [facility] 1.840.114 350.1.13.10 4.2.7.2.686 [id number] 011 [id number] [facility] 2023-04-02 00:00:00 2023-04-02 00:00:00 [facility] 1.2840.114 350.1.13.10 4.2.7.2.686 [id number] 044 [id number] [facility] 2023-03-30 00:00:00 2023-03-30 00:00:[address] [facility] 1.840.114 350.1.13.10 4.2.7.2.686 [id number] 085 [id number] [facility] 2023-03-29 14:30:00 2023-03-29 15:00:00 Office Visit Naina Segovia [facility] IALTY [facility] 1.0.114 350.1.13.10 4.2.7.2.686 [id number] [id number] [facility] 2023-03-29 14:30:00 2023-03-29 14:30:00 Outpatient R NAINA SEGOVIA [facility] [id number] [facility] 2023-03-21 12:30:00 2023-03-21 12:30:00 Outpatient R HOLLY FREGOSO [facility] [id number] [facility] 2023-03-19 00:00:00 2023-03-19 00:00:[address] [facility] 1.840.114 350.1.13.10 4.2.7.2.686 [id number] 011 [id number] [facility] 2023-03-19 00:00:00 2023-03-19 00:00:00 Orders Only Doctor Unassigned, [place] [facility] 1.2.840.114 350.1.13.10 4.2.7.2.686 [id number] [facility] 2023-03-14 00:00:00 2023-03-14 00:00:[address] [facility] [place] [facility] 1.0.114 350.1.13.10 4.2.7.2.686 [id number] 011 [id number] [facility] 2023-03-13 14:30:00 2023-03-13 15:27:42 Outpatient R BETH PHAM [facility] [id number] [facility] 2023-03-13 14:30:00 2023-03-13 15:27:42 Office Visit Beth Pham [facility] 1.840.114 350.1.13.10 4.2.7.2.686 [id number] [id number] [facility] 2023-03-12 10:00:00 2023-03-12 10:00:00 Outpatient NAINA CABALLERO [facility] [id number] [facility] 2023-03-11 00:00:00 2023-03-11 00:00:00 Radha Stafford [facility] 1.840.114 350.1.13.10 4.2.7.2.686 [id number] [facility] 2023-03-06 15:20:00 2023-03-06 16:11:30 Outpatient TAYLOR PARKS [facility] [id number] [facility] 2023-03-06 15:20:00 2023-03-06 16:11:30 Office Visit Taylor Verdin [facility] 1..840.114 350.1.13.10 4.2.7.2.686 [id number] 044 [id number] [facility] 2023-03-06 00:00:00 2023-03-06 00:00:00 Refill WilkinsonRaul [facility] MEDICAL OFF[facility] BUILDING 1..840.114 350.1.13.10 4.2.7.2.686 [id number] [id number] [facility] 2023-02-25 00:00:00 2023-02-25 00:00:00 Refill Radha Trinidad [facility] 1.840.114 350.1.13.10 4.2.7.2.686 [id number] [facility] 2023-02-19 14:15:00 2023-02-19 14:26:26 Outpatient R DUNCAN RAMOS [facility] [id number] [facility] 2023-02-19 14:15:00 2023-02-19 14:26:26 Office Visit Duncan Ramos [facility] MEDICAL OFFICE BUILDING 1..840.114 350.1.13.10 4.2.7.2.686 [id number] [facility] 2023-02-18 00:00:00 2023-02-18 00:00:00 Orders Only Doctor Unassigned, [place] [facility] 1.84.114 350.1.13.10 4.2.7.2.686 [id number] [facility] 2023-02-12 09:30:00 2023-02-12 09:30:00 Outpatient RICHA BURLESON [facility] [id number] [facility] 2023-02-02 00:00:00 2023-02-02 00:00:00 Radha Stafford [facility] 1.840.114 350.1.13.10 4.2.7.2.686 [id number] [facility] 2023-01-30 15:00:00 2023-01-30 15:28:38 [facility] [id number] [facility] 2023-01-30 15:00:00 2023-01-30 15:28:38 Office Visit Paulo Chamorrossica [facility]H [facility] MEDICAL OFFICE BUILDING 1.840.114 350.1.13.10 4.2.7.2.686 [id number] [facility] 2023-01-30 00:00:00 2023-01-30 00:00:00 RefCurtis Barber [facility] 1.0.114 350.1.13.10 4.2.7.2.686 [id number] [id number] [facility] 2023-01-30 00:00:00 2023-01-30 00:00:00 Orders Only Doctor Unassigned, [place] [facility] 1.840.114 350.1.13.10 4.2.7.2.686 [id number] [facility] 2023-01-29 00:00:00 2023-01-29 00:00:00 Radha Stafford [facility] FAMILY MEDICINE [facility] 1.840.114 350.1.13.10 4.2.7.2.686 [id number] [facility] 2023-01-28 00:00:00 2023-01-28 00:00:00 Telephone [facility] MEDICAL OFF[facility] BUILD[facility] 1.840.114 350.1.13.10 4.2.7.2.686 [id number] [facility] 2023-01-26 00:00:00 2023-01-26 00:00:[address] [facility] 1.0.114 350.1.13.10 4.2.7.2.686 [id number] 085 [id number] [facility] 2023-01-25 00:00:00 2023-01-25 00:00:00 Refill Keyla Chaudhry [facility] MEDICAL OFFICE BUILDING 1.840.114 350.1.13.10 4.2.7.2.686 [id number] [facility] 2023-01-25 00:00:00 2023-01-25 00:00:00 Patient Secure M[facility] 1.840.114 350.1.13.10 4.2.7.2.686 [id number] [id number] [facility] 2023-01-24 00:00:00 2023-01-24 00:00:00 Refill Radha Trinidad [facility] 1.840.114 350.1.13.10 4.2.7.2.686 [id number] [facility] 2023-01-24 00:00:00 2023-01-24 00:00:00 Telephone Richa Dominguez [facility] 1.840.114 350.1.13.10 4.2.7.2.686 [id number] [facility] 2023-01-24 00:00:00 2023-01-24 00:00:00 Refill Taylor Verdin [facility] 1.840.114 350.1.13.10 4.2.7.2.686 [id number] [id number] [facility] 2023-01-24 00:00:00 2023-01-24 00:00:00 Sabrina Grant [facility] 1.2840.114 350.1.13.10 4.2.7.2.686 [id number] [id number] [facility] 2023-01-19 14:40:00 2023-01-19 15:02:51 Outpatient R TAYLOR VERDIN [facility] [id number] [facility] 2023-01-19 14:40:00 2023-01-19 15:02:51 Office Visit Taylor Verdin [facility] 1.284.114 350.1.13.10 4.2.7.2.686 [id number] [id number] [facility] 2023-01-16 00:00:00 2023-01-16 00:00:00 Telephone Naina Segovia [facility] 1.2840.114 350.1.13.10 4.2.7.2.686 [id number] [id number] [facility] 2023-01-10 00:00:00 2023-01-10 00:00:00 Telephone Ez Palacio [facility] 1.2840.114 350.1.13.10 4.2.7.2.686 [id number] [facility] 2023-01-09 10:45:00 2023-01-09 11:00:00 Service Order Dispatcher Chief Visit V[facility] Harjinder James [facility] 1.2.114 350.1.13.10 4.2.7.2.686 [id number] [facility] 2023-01-09 09:40:00 2023-01-09 10:34:43 Outpatient R HARJINDER JAMES [facility] [id number] [facility] 2023-01-09 09:40:00 2023-01-09 10:34:43 Office Visit Harjinder James [facility] 1..114 350.1.13.10 4.2.7.2.686 [id number] [facility] 2023-01-05 00:00:00 2023-01-05 00:00:00 Telephone Naina Segovia [facility] 1..114 350.1.13.10 4.2.7.2.686 [id number] [id number] [facility] 2023-01-04 00:00:00 2023-01-04 00:00:00 Patient Secure Msg Ez Palacio [facility] 1..114 350.1.13.10 4.2.7.2.686 [id number] [facility] 2023-01-01 13:30:00 2023-01-01 14:22:24 Outpatient R ELDER TENA [facility] [id number] [facility] 2023-01-01 13:30:00 2023-01-01 14:22:24 Office Visit Vanda Morales Joseph Marc [facility] 1..114 350.1.13.10 4.2.7.2.686 [id number] [facility] 2023-01-01 10:45:00 2023-01-01 11:46:35 Service Order Dispatcher Chief Visit Lab, Ez Gallagher [facility] TORRES PARKERJoseKENNETH [facility] 1..114 350.1.13.10 4.2.7.2.686 [id number] [facility] 2023-01-01 10:00:00 2023-01-01 10:26:07 Office Visit Ez Palacio [facility] 1.2.840.114 350.1.13.10 4.2.7.2.686 [id number] [facility] 2023-01-01 00:00:00 2023-01-01 00:00:00 Orders Only Doctor Unassigned, [place] [facility] 1.2.840.114 350.1.13.10 4.2.7.2.686 [id number] [facility] 2022-12-26 11:30:00 2022-12-26 11:30:00 [facility] [id number] [facility] 2022-12-26 00:00:00 2022-12-26 00:00:00 Telephone Radha Trinidad [facility] [facility] 1.2840.114 350.1.13.10 4.2.7.2.686 [id number] [facility] 2022-12-11 10:04:30 2022-12-11 23:59:00 Outpatient CURTIS HARRISON [facility] [id number] [facility] 2022-12-11 10:04:30 2022-12-11 23:59:00 Hospital Encounter Curtis Morley [facility]TY [facility] 1.2840.114 350.1.13.10 4.2.7.2.686 [id number] [facility] 2022-12-11 10:30:00 2022-12-11 11:45:55 Office Visit Curtis Morley [facility]ALTY [facility] 1.2.840.114 350.1.13.10 4.2.7.2.686 [id number] [id number] [facility] 2022-12-11 10:00:00 2022-12-11 10:00:00 Outpatient RICHA BURLESON [facility] [id number] [facility] 2022-12-11 00:00:00 2022-12-11 00:00:00 Radha Stafford [facility] 1.2.840.114 350.1.13.10 4.2.7.2.686 [id number] [facility] 2022-12-07 00:00:00 2022-12-07 00:00:00 Telephone Curtis Morley [facility] C[facility] 1.840.114 350.1.13.10 4.2.7.2.686 [id number] 011 [id number] [facility] 2022-12-07 00:00:00 2022-12-07 00:00:00 Patient Secure Msg Doctor Unassigned, [place] [facility] 1.2.840.114 350.1.13.10 4.2.7.2.686 [id number] 092 [id number] [facility] 2022-12-06 00:00:00 2022-12-06 00:00:00 Telephone Abbey Skyler Aquino [facility] 1.2.840.114 350.1.13.10 4.2.7.2.686 [id number] 092 [id number] [facility] 2022-12-06 00:00:00 2022-12-06 00:00:00 Patient Secure Msg Abbey Skyler Aquino [facility] 1.2.840.114 350.1.13.10 4.2.7.2.686 [id number] 092 [id number] [facility] 2022-12-05 00:00:00 2022-12-05 00:00:00 Telephone Radha Trinidad [facility] 1.2.840.114 350.1.13.10 4.2.7.2.686 [id number] 311 [id number] [facility] 2022-12-05 00:00:00 2022-12-05 00:00:00 Refill Taylor Verdin Tameka [facility]?KENNETH [facility] MEDICAL OFFICE BUILDING 1.114 350.1.13.10 4.2.7.2.686 [id number] 044 [id number] [facility] 2022-12-05 00:00:00 2022-12-05 00:00:00 Telephone Skyler Ferrari [facility] MED[facility] OFF[facility] BUILD[facility] 1.114 350.1.13.10 4.2.7.2.686 [id number] 092 [id number] [facility] 2022-12-05 00:00:00 2022-12-05 00:00:00 Telephone Skyler Ferrari [facility] KEITH?[facility] MEDICAL OFFICE BUILD[facility] 1.114 350.1.13.10 4.2.7.2.686 [id number] 092 [id number] [facility] 2022-11-30 15:00:00 2022-11-30 15:00:00 Outpatient R TAYLOR VERDIN [facility] [id number] [facility] 2022-11-29 11:30:00 2022-11-29 12:34:48 Outpatient R TAYLOR VERDIN [facility] [id number] [facility] 2022-11-29 11:30:00 2022-11-29 12:34:48 Office Visit Taylor Verdin [facility] KE[facility] MEDICAL OFFICE BUILDING 1.114 350.1.13.10 4.2.7.2.686 [id number] 044 [id number] [facility] 2022-11-29 00:00:00 2022-11-29 00:00:00 Telephone Naina Segovia [facility] 1.114 350.1.13.10 4.2.7.2.686 [id number] 085 [id number] [facility] 2022-11-28 00:00:00 2022-11-28 00:00:00 Case Management [facility] 1.2.840.114 350.1.13.10 4.2.7.2.686 [id number] 085 [id number] [facility] 2022-11-28 00:00:00 2022-11-28 00:00:00 Patient Secure Msg [facility] [place] [facility] 1.2840.114 350.1.13.10 4.2.7.2.686 [id number] 085 [id number] [facility] 2022-11-04 00:00:00 2022-11-04 00:00:00 Refill Holly Fregoso [facility]DR[facility]ENNETH [facility]ATEYALEJANDRA MED[facility] OFF[facility] BUILD[facility] 1.2840.114 350.1.13.10 4.2.7.2.686 [id number] 044 [id number] [facility] 2022-11-02 00:00:00 2022-11-02 00:00:00 Refill Radha Trinidad [facility] 1.2.840.114 350.1.13.10 4.2.7.2.686 [id number] [facility] 2022-10-26 13:25:59 2022-10-26 23:59:00 Outpatient R MEGHAN MARKHAM [facility] [id number] [facility] 2022-10-26 13:25:59 2022-10-26 23:59:00 Hospital Encounter Meghan Markham [facility] MEDICAL OFFICE BUILDING 1.2840.114 350.1.13.10 4.2.7.2.686 [id number] 038 [id number] [facility] 2022-10-26 00:00:00 2022-10-26 00:00:00 Refill Holly Fregoso [facility]?KENNETH [facility] MEDICAL OFFICE BUILDING 1.2.840.114 350.1.13.10 4.2.7.2.686 [id number] 044 [id number] [facility] 2022-10-26 00:00:00 2022-10-26 00:00:00 Refill Trinidad Rad[facility] 1.2840.114 350.1.13.10 4.2.7.2.686 [id number] 044 [id number] [facility] 2022-10-26 00:00:00 2022-10-26 00:00:00 Refill Radha Trinidad [facility] 1.2840.114 350.1.13.10 4.2.7.2.686 [id number] 311 [id number] [facility] 2022-10-26 00:00:00 2022-10-26 00:00:00 Refill Richa Dominguez [facility] MEDICAL OFF[facility] BUILDING 1.2840.114 350.1.13.10 4.2.7.2.686 [id number] [facility] 2022-10-26 00:00:00 2022-10-26 00:00:00 Refill TrinidadRadha vidal [facility] 1.2840.114 350.1.13.10 4.2.7.2.686 [id number] 311 [id number] [facility] 2022-10-26 00:00:00 2022-10-26 00:00:00 Refill Richa Dominguez [facility]?KENNETH [facility] MEDICAL OFFICE BUILDING 1.2840.114 350.1.13.10 4.2.7.2.686 [id number] 220 [id number] [facility] 2022-10-26 00:00:00 2022-10-26 00:00:00 Telephone Holly Fregoso [facility] MEDICAL OFFICE BUILDING 1.840.114 350.1.13.10 4.2.7.2.686 [id number] 044 [id number] [facility] 2022-10-26 00:00:00 2022-10-26 00:00:00 Curtis Iniguez [facility] MULTISPEC IALTY CENTER AND [facility] 1.84114 350.1.13.10 4.2.7.2.686 [id number] 011 [id number] [facility] 2022-10-25 14:00:00 2022-10-25 14:40:59 Outpatient R NAINA SEGOVIA [facility] [id number] [facility] 2022-10-25 14:00:00 2022-10-25 14:40:59 Office Visit Naina Segov[facility] IALTY [facility] 1.84114 350.1.13.10 4.2.7.2.686 [id number] 085 [id number] [facility] 2022-10-25 00:00:00 2022-10-25 00:00:00 Holly Araujo [facility] MEDICAL OFFICE BUILDING 1.840.114 350.1.13.10 4.2.7.2.686 [id number] 044 [id number] [facility] 2022-10-24 09:20:00 2022-10-24 10:35:48 Outpatient R SKYLER FERRARI [facility] [id number] [facility] 2022-10-24 09:20:00 2022-10-24 10:35:48 Office Visit Skyler Ferrari [facility] MEDICAL OFFICE BUILDING 1.840.114 350.1.13.10 4.2.7.2.686 [id number] 092 [id number] [facility] 2022-10-24 00:00:00 2022-10-24 00:00:00 Patient Secure Msg Doctor Unassigned, [place] [facility] 1.0.114 350.1.13.10 4.2.7.2.686 [id number] 019 [id number] [facility] 2022-10-22 00:00:00 2022-10-22 00:00:00 [facility] MEDICAL OFFICE BUILDING 1.0.114 350.1.13.10 4.2.7.2.686 [id number] 044 [id number] [facility] 2022-10-20 00:00:00 2022-10-20 00:00:00 Telephone Holly Fregoso [facility] MEDICAL OFFICE BUILDING 1.114 350.1.13.10 4.2.7.2.686 [id number] 044 [id number] [facility] 2022-10-18 15:00:00 2022-10-18 15:35:29 Outpatient R HOLLY FREGOSO [facility] [id number] [facility] 2022-10-18 15:00:00 2022-10-18 15:35:29 Office Visit Holly Fregoso [facility] MEDICAL OFFICE BUILDING 1..114 350.1.13.10 4.2.7.2.686 [id number] 044 [id number] [facility] 2022-10-18 00:00:00 2022-10-18 00:00:00 Orders Only Doctor Unassigned, [place] [facility] 1..114 350.1.13.10 4.2.7.2.686 [id number] [facility] 2022-10-17 09:00:00 2022-10-17 09:15:00 Service Order Dispatcher Chief Visit [facility] Sleep Lab Kalli Jefferson [facility] 1.2.840.114 350.1.13.10 4.2.7.2.686 [id number] [facility] 2022-10-17 09:00:00 2022-10-17 09:00:00 Outpatient KALLI CASON STRAHIL [facility] [id number] [facility] 2022-10-03 00:00:00 2022-10-03 00:00:00 Telephone [facility] 1.0.114 350.1.13.10 4.2.7.2.686 [id number] [facility] 2022-10-03 00:00:00 2022-10-03 00:00:00 Telephone Meghan Markham [facility] MEDICAL OFFICE BUILDING 1.840.114 350.1.13.10 4.2.7.2.686 [id number] [id number] [facility] 2022-10-02 00:00:00 2022-10-02 00:00:00 Refill Holly Fregoso [facility] 1.2840.114 350.1.13.10 4.2.7.2.686 [id number] 044 [id number] [facility] 2022-10-01 00:00:00 2022-10-01 00:00:00 Refill Doctor Unassigned, [place] [facility] 1.840.114 350.1.13.10 4.2.7.2.686 [id number] 011 [id number] [facility] 2022-10-01 00:00:00 2022-10-01 00:00:00 Refill Doctor Unassigned, [place] [facility] 1.2840.114 350.1.13.10 4.2.7.2.686 [id number] 311 [id number] [facility] 2022-10-01 00:00:00 2022-10-01 00:00:00 Radha Stafford [facility] 1.2840.114 350.1.13.10 4.2.7.2.686 [id number] 311 [id number] [facility] 2022-09-21 11:00:00 2022-09-21 11:57:44 Outpatient R HOLLY FREGOSO [facility] [id number] [facility] 2022-09-21 11:00:00 2022-09-21 11:57:44 Office Visit Holly Fregoso [facility] MEDICAL OFFICE BUILDING 1.2840.114 350.1.13.10 4.2.7.2.686 [id number] 044 [id number] [facility] 2022-09-21 08:00:00 2022-09-21 08:30:00 Office Visit Taylor Verdin [facility] MEDICAL OFFICE BUILDING 1.2840.114 350.1.13.10 4.2.7.2.686 [id number] 044 [id number] [facility] 2022-09-21 08:00:00 2022-09-21 08:00:00 Outpatient R TAYLOR VERDIN [facility] [id number] [facility] 2022-09-19 00:00:00 2022-09-19 00:00:00 Nurse Triage Carolyn Nava [facility] 1.840.114 350.1.13.10 4.2.7.2.686 [id number] [facility] 2022-09-19 00:00:00 2022-09-19 00:00:00 Telephone uCrtis Morley [facility] 1.840.114 350.1.13.10 4.2.7.2.686 [id number] 011 [id number] [facility] 2022-09-18 10:00:00 2022-09-18 10:30:00 Telemedici ne [facility] 1.2.840.114 350.1.13.10 4.2.7.2.686 [id number] 011 [id number] [facility] 2022-09-18 10:00:00 2022-09-18 10:00:00 Outpatient R BETH PHAM [facility] [id number] [facility] 2022-09-18 00:00:00 2022-09-18 00:00:00 Telephone [facility] 1.2.840.114 350.1.13.10 4.2.7.2.686 [id number] 011 [id number] [facility] 2022-09-15 10:53:55 2022-09-15 23:59:00 Hospital [facility] 1.2.840.114 350.1.13.10 4.2.7.2.686 [id number] [id number] [facility] 2022-09-15 10:53:55 2022-09-15 23:59:00 Outpatient R CURTIS MORLEY [facility] [id number] [facility] 2022-09-15 10:30:00 2022-09-15 11:00:00 Office [facility] 1.2840.114 350.1.13.10 4.2.7.2.686 [id number] 011 [id number] [facility] 2022-09-13 09:30:00 2022-09-13 10:35:03 Outpatient R RICHA DOMINGUEZ [facility] [id number] [facility] 2022-09-13 09:30:00 2022-09-13 10:35:03 Office Visit Richa Dominguez [facility] 1.2.840.114 350.1.13.10 4.2.7.2.686 [id number] 220 [id number] [facility] 2022-09-13 00:00:00 2022-09-13 00:00:00 Telephone Ez Palacio [facility] 1.2.840.114 350.1.13.10 4.2.7.2.686 [id number] 134 [id number] [facility] 2022-09-13 00:00:00 2022-09-13 00:00:00 Telephone Curtis Morley [facility] 1.2840.114 350.1.13.10 4.2.7.2.686 [id number] [id number] [facility] 2022-09-12 09:30:00 2022-09-12 10:14:05 Office Visit Argentina Looney [facility] 1.2.840.114 350.1.13.10 4.2.7.2.686 [id number] [facility] 2022-09-12 09:30:00 2022-09-12 10:14:05 Outpatient R ARGENTINA LOONEY [facility] [id number] [facility] 2022-09-12 00:00:00 2022-09-12 00:00:00 Orders Only Doctor Unassigned, [place] [facility] 1.2.840.114 350.1.13.10 4.2.7.2.686 [id number] [facility] 2022-09-06 00:00:00 2022-09-06 00:00:00 Patient Secure Msg [facility] 1.2.840.114 350.1.13.10 4.2.7.2.686 [id number] [facility] 2022-08-29 10:30:00 2022-08-29 10:30:00 Outpatient R CURTIS MORLEY [facility] [id number] [facility] 2022-08-21 10:15:00 2022-08-21 10:15:00 Service Order Dispatcher Chief Visit Lab, Ang - Db Donell [facility]?KENNETH [facility] MEDICAL OFFICE BUILDING 1..840.114 350.1.13.10 4.2.7.2.686 [id number] [facility] 2022-08-21 10:15:00 2022-08-21 10:09:08 Out[facility] [id number] [facility] 2022-08-21 09:30:00 2022-08-21 09:56:40 Office Visit Donell [facility]?KENNETH ALEJANDRA MEDICAL OFF[facility] BUILDING 1..840.114 350.1.13.10 4.2.7.2.686 [id number] [id number] [facility] 2022-08-17 13:00:00 2022-08-17 13:00:00 Outpatient R [facility] [id number] [facility] 2022-08-17 00:00:00 2022-08-17 00:00:00 Telephone Radha Trinidad [facility] 1..840.114 350.1.13.10 4.2.7.2.686 [id number] [facility] 2022-08-16 12:39:58 2022-08-16 23:59:00 Outpatient R SKYLER FERRARI [facility] [id number] [facility] 2022-08-16 12:39:58 2022-08-16 23:59:00 Hospital Encounter Skyler Ferrari [facility] SPECIALTY CARE [facility] ..840.114 350.1.13.10 4.2.7.2.686 [id number] [facility] 2022-08-16 00:00:00 2022-08-16 00:00:00 Radha Stafford [facility] 1.2.840.114 350.1.13.10 4.2.7.2.686 [id number] [facility] 2022-08-15 11:30:00 2022-08-15 11:42:13 Outpatient R EZ PALACIO [facility] [id number] [facility] 2022-08-15 11:30:00 2022-08-15 11:42:13 Office Visit Hakeem [facility] 1.2840.114 350.1.13.10 4.2.7.2.686 [id number] [facility] 2022-08-15 00:00:00 2022-08-15 00:00:00 Telephone Hakeem [facility] 1.2840.114 350.1.13.10 4.2.7.2.686 [id number] 134 [id number] [facility] 2022-08-03 12:45:00 2022-08-03 13:00:00 Service Order Dispatcher Chief Visit Lab, Raj - Ish Palacio [facility] MEDICAL OFFICE BUILDING 1.2840.114 350.1.13.10 4.2.7.2.686 [id number] [facility] 2022-08-03 12:45:00 2022-08-03 12:45:00 Outpatient R EZ PALACIO [facility] [id number] [facility] 2022-08-02 13:00:00 2022-08-02 13:55:50 Outpatient R EZ PALACIO [facility] [id number] [facility] 2022-08-02 13:00:00 2022-08-02 13:55:50 Office Visit Ez Palacio [facility] 1.284.114 350.1.13.10 4.2.7.2.686 [id number] [facility] 2022-07-26 08:50:28 2022-07-26 23:59:00 [facility] [id number] [facility] 2022-07-26 08:50:28 2022-07-26 23:59:00 Hospital Encounter Ez Palacio [facility] 1.84.114 350.1.13.10 4.2.7.2.686 [id number] [facility] 2022-07-26 00:00:00 2022-07-26 00:00:00 Telephone Abbey Skyler [facility]?KENNETH [facility] MEDICAL OFFICE BUILDING 1..840.114 350.1.13.10 4.2.7.2.686 [id number] 092 [id number] [facility] 2022-07-24 09:20:00 2022-07-24 10:09:23 Outpatient R SKYLER FERRARI [facility] [id number] [facility] 2022-07-24 09:20:00 2022-07-24 10:09:23 Office Visit AbbeySkyler ortiz [facility] MEDICAL OFFICE BUILD[facility] 1..840.114 350.1.13.10 4.2.7.2.686 [id number] [id number] [facility] 2022-07-19 00:00:00 2022-07-19 00:00:00 [facility].840.114 350.1.13.10 4.2.7.2.686 [id number] 134 [id number] [facility] 2022-07-18 10:00:00 2022-07-18 11:06:06 Outpatient R BETH PHAM [facility] [id number] [facility] 2022-07-18 10:00:00 2022-07-18 11:06:06 Office Visit Beth Pham [facility] MULTISPEC IALTY CENTER [facility] 1..114 350.1.13.10 4.2.7.2.686 [id number] [id number] [facility] 2022-07-17 10:45:00 2022-07-17 11:30:28 Outpatient R EZ PALACIO CHERYAL [facility] [id number] [facility] 2022-07-17 10:45:00 2022-07-17 11:30:28 Office Visit Ez Palacio [facility] 1.84.114 350.1.13.10 4.2.7.2.686 [id number] [facility] 2022-07-13 00:00:00 2022-07-13 00:00:00 Telephone Curtis Morley [facility] MULTISPEC IALTY CENTER AND [facility] 1..114 350.1.13.10 4.2.7.2.686 [id number] [id number] [facility] 2022-07-11 00:00:00 2022-07-11 00:00:00 Telephone Curtis Morley [facility] MULTISPEC IALTY CENTER [facility] 1..114 350.1.13.10 4.2.7.2.686 [id number] 011 [id number] [facility] 2022-07-04 00:00:00 2022-07-04 00:00:00 Radha Stafford [facility] FAMILY MEDICINE [facility] 1.840.114 350.1.13.10 4.2.7.2.686 [id number] [facility] 2022-07-03 11:18:25 2022-07-03 23:59:00 Outpatient R CAMILO CORLEY [facility] [id number] [facility] 2022-07-03 00:00:00 2022-07-03 00:00:00 Telephone Curtis Morley [facility] MULTISPEC IALTY CENTER AND [facility] 1.840.114 350.1.13.10 4.2.7.2.686 [id number] [facility] 2022-06-30 14:31:25 2022-06-30 23:59:00 Hospital Encounter Curtis [facility] 1.840.114 350.1.13.10 4.2.7.2.686 [id number] [facility] 2022-06-30 14:00:00 2022-06-30 14:30:00 Office Visit Curtis [facility]ley [facility] 1..114 350.1.13.10 4.2.7.2.686 [id number] [facility] 2022-06-30 14:00:00 2022-06-30 14:00:00 Outpatient R CURTIS [facility] [id number] [facility] 2022-06-28 00:00:00 2022-06-28 00:00:00 [facility] 1.2.114 350.1.13.10 4.2.7.2.686 [id number] [facility] 2022-06-27 00:00:00 2022-06-27 00:00:00 Radha Stafford [facility] 1.2840.114 350.1.13.10 4.2.7.2.686 [id number] [facility] 2022-06-21 00:00:00 2022-06-21 00:00:00 Patient Secure Msg Aayush [facility] 1..114 350.1.13.10 4.2.7.2.686 [id number] [facility] 2022-06-20 11:45:00 2022-06-20 12:00:00 Service Order Dispatcher Chief Visit Lab, [facility] 1..114 350.1.13.10 4.2.7.2.686 [id number] [facility] 2022-06-20 10:00:00 2022-06-20 10:51:04 Outpatient R AAYUSH [facility] [id number] [facility] 2022-06-20 10:00:00 2022-06-20 10:51:04 Office Visit Aayush [facility] 1..114 350.1.13.10 4.2.7.2.686 [id number] [facility] 2022-06-16 00:00:00 2022-06-16 00:00:00 Orders Only Doctor Unassigned, [place] [facility] 1..114 350.1.13.10 4.2.7.2.686 [id number] [facility] 2022-06-09 10:15:00 2022-06-09 11:34:49 Outpatient R CAMILO [facility] [id number] [facility] 2022-06-09 10:15:00 2022-06-09 11:34:49 Office Visit Camilo Corley [facility] 1.2.840.114 350.1.13.10 4.2.7.2.686 [id number] [facility] 2022-05-22 00:00:00 2022-05-22 00:00:00 Refill Doctor Unassigned, [place] [facility] 1.2.840.114 350.1.13.10 4.2.7.2.686 [id number] [facility] 2022-05-21 00:00:00 2022-05-21 00:00:00 Refill Radha Trinidad [facility] 1.2.840.114 350.1.13.10 4.2.7.2.686 [id number] [facility] 2022-05-17 00:00:00 2022-05-17 00:00:00 Telephone Curtis [facility] 1.2.840.114 350.1.13.10 4.2.7.2.686 [id number] [facility] 2022-05-17 00:00:00 2022-05-17 00:00:00 Telephone Curtis Morley [facility] 1.2.840.114 350.1.13.10 4.2.7.2.686 [id number] [facility] 2022-05-17 00:00:00 2022-05-17 00:00:00 Telephone Radha Trinidad [facility] 1.2.840.114 350.1.13.10 4.2.7.2.686 [id number] [facility] 2022-05-16 10:00:00 2022-05-16 11:13:48 Outpatient R CURTIS [facility] [id number] [facility] 2022-05-16 10:00:00 2022-05-16 11:13:48 [facility] 1.840.114 350.1.13.10 4.2.7.2.686 [id number] [facility] 2022-05-10 00:00:00 2022-05-10 00:00:00 Patient Secure Msg Doctor Unassigned, [place] [facility] 1.2.840.114 350.1.13.10 4.2.7.2.686 [id number] [facility] 2022-05-08 09:15:00 2022-05-08 09:30:00 Service Order Dispatcher Chief Visit Lab, [facility] Radha Morales [facility] 1..840.114 350.1.13.10 4.2.7.2.686 [id number] [facility] 2022-05-08 09:15:00 2022-05-08 09:15:00 Outpatient R RADHA TRINIDAD [facility] [id number] [facility] 2022-05-04 00:00:00 2022-05-04 00:00:00 Telephone Radha Trinidad [facility] 1..840.114 350.1.13.10 4.2.7.2.686 [id number] 311 [id number] [facility] 2022-05-01 00:00:00 2022-05-01 00:00:00 Ref[address] [facility] [facility] 1.840.114 350.1.13.10 4.2.7.2.686 [id number] [facility] 2022-04-28 00:00:00 2022-04-28 00:00:00 Azalia Cartagena [facility] 1.840.114 350.1.13.10 4.2.7.2.686 [id number] [facility] 2022-04-26 00:00:00 2022-04-26 00:00:00 Telephone Radha Trinidad [facility] 1.2.840.114 350.1.13.10 4.2.7.2.686 [id number] 311 [id number] [facility] 2022-04-21 00:00:00 2022-04-21 00:00:00 Patient Secure Msg Radha Trinidad [facility] 1.2.840.114 350.1.13.10 4.2.7.2.686 [id number] [facility] 2022-04-21 00:00:00 2022-04-21 00:00:00 Refill Azalia Michel [facility] 1.2.840.114 350.1.13.10 4.2.7.2.686 [id number] [facility] 2022-04-21 00:00:00 2022-04-21 00:00:00 Refill Doctor Unassigned, [place] [facility] 1.2.840.114 350.1.13.10 4.2.7.2.686 [id number] 311 [id number] [facility] 2022-04-21 00:00:00 2022-04-21 00:00:00 Refill Ashley Raines [facility] [place] 1.2.840.114 350.1.13.10 4.2.7.2.686 [id number] [facility] 2022-04-18 14:00:00 2022-04-18 14:30:00 Telemedici ne Visit Radha Trinidad [facility] 1.2.840.114 350.1.13.10 4.2.7.2.686 [id number] [facility] 2022-04-18 14:00:00 2022-04-18 14:00:00 Outpatient Annalee CUNNINGHAMTRINIDADRADHA HOLT [facility] [id number] [facility] 2022-04-18 14:00:00 2022-04-18 14:00:00 Outpatient RADHA GUPTA [facility] [id number] [facility] 2022-04-18 10:00:00 2022-04-18 10:00:00 Outpatient Annalee FONTANEZTRINIDADRADHA VIDAL [facility] [id number] [facility] 2022-04-17 00:00:00 2022-04-17 00:00:00 Honey Trinidad Radha [facility] 1.2840.114 350.1.13.10 4.2.7.2.686 [id number] [facility] 2022-04-13 00:00:00 2022-04-13 00:00:00 Refjo-ann TrinidadRadha [facility] 1.2840.114 350.1.13.10 4.2.7.2.686 [id number] [facility] 2022-04-05 00:00:00 2022-04-05 00:00:00 Orders Only Doctor Unassigned, [place] [facility] 1.2.840.114 350.1.13.10 4.2.7.2.686 [id number] [facility] 2022-03-26 00:00:00 2022-03-26 00:00:00 Refjo-ann FontanezRadha vidal [facility] 1.2.840.114 350.1.13.10 4.2.7.2.686 [id number] 311 [id number] [facility] 2022-03-26 00:00:00 2022-03-26 00:00:00 Azalia Cartagena [facility] 1.2840.114 350.1.13.10 4.2.7.2.686 [id number] [facility] 2022-03-13 00:00:00 2022-03-13 00:00:00 Orders Only Doctor Unassigned, [place] [facility] 1.2.840.114 350.1.13.10 4.2.7.2.686 [id number] [facility] 2022-03-10 00:00:00 2022-03-10 00:00:00 Telephone Radha Trinidad [facility] 1.2.840.114 350.1.13.10 4.2.7.2.686 [id number] 311 [id number] [facility] 2022-03-08 00:00:00 2022-03-08 00:00:00 Telephone Azalia Michel [facility] 1.2840.114 350.1.13.10 4.2.7.2.686 [id number] [facility] 2022-03-08 00:00:00 2022-03-08 00:00:00 Telephone Radha Trinidad [facility] 1.2840.114 350.1.13.10 4.2.7.2.686 [id number] [facility] 2022-03-07 14:00:00 2022-03-07 14:00:00 Outpatient R AZALIA MICHEL [facility] [id number] [facility] 2022-03-07 00:00:00 2022-03-07 00:00:00 Telephone Radha Trinidad [facility] 1.2840.114 350.1.13.10 4.2.7.2.686 [id number] 311 [id number] [facility] 2022-03-05 00:00:00 2022-03-05 00:00:00 Refill Radha Trinidad [facility] 1.2.840.114 350.1.13.10 4.2.7.2.686 [id number] 311 [id number] [facility] 2022-02-28 00:00:00 2022-02-28 00:00:00 Patient Secure Msg Doctor Unassigned, [place] [facility] 1.2.840.114 350.1.13.10 4.2.7.2.686 [id number] 311 [id number] [facility] 2022-02-13 00:00:00 2022-02-13 00:00:00 Refill Radha Trinidad [facility] 1.2.840.114 350.1.13.10 4.2.7.2.686 [id number] 311 [id number] [facility] 2022-02-10 00:00:00 2022-02-10 00:00:00 Honey Radha Trinidad [facility] 1.2.840.114 350.1.13.10 4.2.7.2.686 [id number] 311 [id number] [facility] 2022-02-10 00:00:00 2022-02-10 00:00:00 Refill Radha Trinidad [facility] 1.2.840.114 350.1.13.10 4.2.7.2.686 [id number] 311 [id number] [facility] 2022-02-09 00:00:00 2022-02-09 00:00:00 Refill Radha Trinidad [facility] 1.2.840.114 350.1.13.10 4.2.7.2.686 [id number] 311 [id number] [facility] 2022-02-09 00:00:00 2022-02-09 00:00:00 Refill Azalia Michel [facility] 1.2.840.114 350.1.13.10 4.2.7.2.686 [id number] [facility] 2022-01-24 14:00:00 2022-01-24 14:15:00 Office Visit Marilu Azalia [facility] 1..114 350.1.13.10 4.2.7.2.686 [id number] [facility] 2022-01-24 14:00:00 2022-01-24 14:00:00 Outpatient Annalee MICHEL AZALIA [facility] [id number] [facility] 2022-01-24 14:00:00 2022-01-24 14:00:00 Outpatient Annalee MICHEL [facility] [id number] [facility] 2022-01-24 14:00:00 2022-01-24 14:00:00 Outpatient Annalee MICHEL [facility] [id number] [facility] 2022-01-24 14:00:00 2022-01-24 14:00:00 Outpatient R MARILU AZALIA [facility] [id number] [facility] 2022-01-24 00:00:00 2022-01-24 00:00:00 Patient Secure Msg Doctor Unassigned, [place] [facility] 1.840.114 350.1.13.10 4.2.7.2.686 [id number] 311 [id number] [facility] 2022-01-24 00:00:00 2022-01-24 00:00:00 Patient Secure Msg Radha Trinidad [facility] 1.0.114 350.1.13.10 4.2.7.2.686 [id number] 311 [id number] [facility] 2022-01-21 00:00:00 2022-01-21 00:00:00 Patient Secure Msg Doctor Unassigned, [place] [facility] 1.840.114 350.1.13.10 4.2.7.2.686 [id number] [facility] 2022-01-20 00:00:00 2022-01-20 00:00:00 Telephone Radha Trinidad [facility] 1.2.840.114 350.1.13.10 4.2.7.2.686 [id number] 311 [id number] [facility] 2022-01-20 00:00:00 2022-01-20 00:00:00 Telephone Radha Trinidad [facility] 1.2.840.114 350.1.13.10 4.2.7.2.686 [id number] 311 [id number] [facility] 2022-01-16 15:00:00 2022-01-16 15:30:00 Office Visit Radha Trinidad [facility] 1.2.840.114 350.1.13.10 4.2.7.2.686 [id number] [facility] 2022-01-16 15:00:00 2022-01-16 15:00:00 Outpatient R RADHA TRINIDAD [facility] [id number] [facility] 2022-01-16 00:00:00 2022-01-16 00:00:00 Catalina Alvarez [facility] 1.2.840.114 350.1.13.10 4.2.7.2.686 [id number] 311 [id number] [facility] 2022-01-04 00:00:00 2022-01-04 00:00:00 Patient Secure Msg Doctor Unassigned, [place] [facility] 1.840.114 350.1.13.10 4.2.7.2.686 [id number] [id number] [facility] 2022-01-04 00:00:00 2022-01-04 00:00:[address] [facility] 1.2.840.114 350.1.13.10 4.2.7.2.686 [id number] [id number] [facility] 2022-01-04 00:00:00 2022-01-04 00:00:00 Radha Stafford [facility] 1.2.840.114 350.1.13.10 4.2.7.2.686 [id number] 311 [id number] [facility] 2021-12-21 00:00:00 2021-12-21 00:00:00 Honye Michel [facility] 1.2.840.114 350.1.13.10 4.2.7.2.686 [id number] [facility] 2021-12-20 14:30:00 2021-12-20 14:30:00 Outpatient Annalee MICHEL [facility] [id number] [facility] 2021-12-07 00:00:00 2021-12-07 00:00:00 Radha Stafford [facility] 1.2.840.114 350.1.13.10 4.2.7.2.686 [id number] 311 [id number] [facility] 2021-11-29 00:00:00 2021-11-29 00:00:00 Patient Secure Msg Trinidad [facility] 1.2.840.114 350.1.13.10 4.2.7.2.686 [id number] 311 [id number] [facility] 2021-11-22 16:00:00 2021-11-22 16:15:00 Telemedici ne Visit Marilu [facility] 1.2.840.114 350.1.13.10 4.2.7.2.686 [id number] [facility] 2021-11-22 16:00:00 2021-11-22 16:00:00 Outpatient AZALIA ORELLANA [facility] [id number] [facility] 2021-11-22 16:00:00 2021-11-22 16:00:00 Outpatient AZALIA ORELLANA [facility] [id number] [facility] 2021-11-22 00:00:00 2021-11-22 00:00:00 Telephone Radha Trinidad [facility] 1.2.840.114 350.1.13.10 4.2.7.2.686 [id number] 311 [id number] [facility] 2021-11-22 00:00:00 2021-11-22 00:00:00 Telephone Marilu [facility] 1.2.840.114 350.1.13.10 4.2.7.2.686 [id number] [facility] 2021-11-20 00:00:00 2021-11-20 00:00:00 Telephone Marilu [facility] 1.2.840.114 350.1.13.10 4.2.7.2.686 [id number] [facility] 2021-11-20 00:00:00 2021-11-20 00:00:00 [facility] 1.2.840.114 350.1.13.10 4.2.7.2.686 [id number] [facility] 2021-11-20 00:00:00 2021-11-20 00:00:00 Telephone Byron Berry [facility] 1.2.840.114 350.1.13.10 4.2.7.2.686 [id number] [facility] 2021-11-15 08:45:00 2021-11-15 08:45:00 Outpatient CAMILO ISRAEL [facility] [id number] [facility] 2021-11-15 08:45:00 2021-11-15 08:45:00 Outpatient R JORY CAMILO [facility] [id number] [facility] 2021-11-14 10:46:00 2021-11-14 15:24:00 Outpatient R MARILU AZALIA [facility] CASSANDRA [id number] [facility] 2021-11-14 10:46:00 2021-11-14 15:24:00 Hospital Encounter Azalia Michel [facility] 1.2840.114 350.1.13.10 4.2.7.2.686 [id number] [facility] 2021-11-14 11:43:00 2021-11-14 13:33:00 Surgery Marilu [facility] 1.2840.114 350.1.13.10 4.2.7.2.686 [id number] [facility] 2021-11-11 14:00:00 2021-11-11 14:15:00 Laboratory Only Only, Adc Test Marilu Azalia [facility] 1.2840.114 350.1.13.10 4.2.7.2.686 [id number] [facility] 2021-11-11 14:00:00 2021-11-11 14:00:00 Outpatient AZALIA ORELLANA [facility] [id number] [facility] 2021-11-08 14:15:00 2021-11-08 14:30:00 Office Visit Marilu Azalia [facility] 1.0.114 350.1.13.10 4.2.7.2.686 [id number] [facility] 2021-11-08 14:15:00 2021-11-08 14:15:00 Outpatient R AZALIA MICHEL [facility] [id number] [facility] 2021-11-08 00:00:00 2021-11-08 00:00:00 Radha Stafford [facility] 1.2.840.114 350.1.13.10 4.2.7.2.686 [id number] [facility] 2021-11-04 11:00:00 2021-11-04 11:00:00 Outpatient AZALIA ORELLANA [facility] [id number] [facility] 2021-10-26 00:00:00 2021-10-26 00:00:00 Patient Secure Curtis Partida [facility] 1..840.114 350.1.13.10 4.2.7.2.686 [id number] [facility] 2021-10-22 00:00:00 2021-10-22 00:00:00 Radha Stafford [facility] 1..840.114 350.1.13.10 4.2.7.2.686 [id number] [facility] 2021-10-17 09:30:00 2021-10-17 09:30:00 Outpatient CURTIS HARRISON [facility] [id number] [facility] 2021-10-05 11:30:00 2021-10-05 11:30:00 Outpatient SKYLER DOUGHERTY [facility] [id number] [facility] 2021-10-05 00:00:00 2021-10-05 00:00:00 Radha Stafford [facility] 1..840.114 350.1.13.10 4.2.7.2.686 [id number] [facility] 2021-09-29 08:30:00 2021-09-29 08:30:00 Outpatient CURTIS HARRISON [facility] [id number] [facility] 2021-09-29 08:30:00 2021-09-29 08:30:00 Outpatient CURTIS HARRISON [facility] [id number] [facility] 2021-09-29 08:30:00 2021-09-29 08:30:00 Outpatient CURTIS HARRISON [facility] [id number] [facility] 2021-09-16 14:30:00 2021-09-16 14:30:00 Outpatient RADHA GUPTA [facility] [id number] [facility] 2021-09-16 14:30:00 2021-09-16 14:30:00 Outpatient RADHA GUPTA [facility] [id number] [facility] 2021-09-15 00:00:00 2021-09-15 00:00:[address] [facility] 1.0.114 350.1.13.10 4.2.7.2.686 [id number] [facility] 2021-09-06 09:00:00 2021-09-06 09:30:00 Office Visit Radha Trinidad [facility] 1.840.114 350.1.13.10 4.2.7.2.686 [id number] [facility] 2021-09-06 09:00:00 2021-09-06 09:00:00 Outpatient RADHA GUPTA [facility] [id number] [facility] 2021-09-06 09:00:00 2021-09-06 09:00:00 Outpatient RADHA GUPTA [facility] [id number] [facility] 2021-09-06 00:00:00 2021-09-06 00:00:00 Orders Only Doctor Unassigned, [place] [facility] 1.840.114 350.1.13.10 4.2.7.2.686 [id number] [facility] 2021-09-06 00:00:00 2021-09-06 00:00:00 Telephone Curtis Morley [facility] 1.2.840.114 350.1.13.10 4.2.7.2.686 [id number] [facility] 2021-09-01 00:00:00 2021-09-01 00:00:00 Refjo-ann FontanezRadha vidal [facility] 1.2.840.114 350.1.13.10 4.2.7.2.686 [id number] [facility] 2021-08-10 00:00:00 2021-08-10 00:00:00 RefAshley Schultz [facility] [place] 1.2.840.114 350.1.13.10 4.2.7.2.686 [id number] 370 [id number] [facility] 2021-08-03 00:00:00 2021-08-03 00:00:00 Refill TrinidadRadha vidal [facility] 1.2.840.114 350.1.13.10 4.2.7.2.686 [id number] 311 [id number] [facility] 2021-08-03 00:00:00 2021-08-03 00:00:00 Solis FontanezRadha vidal [facility] 1.2.840.114 350.1.13.10 4.2.7.2.686 [id number] 311 [id number] [facility] 2021-08-02 00:00:00 2021-08-02 00:00:00 Solis FontanezRadha vidal [facility] 1.2.840.114 350.1.13.10 4.2.7.2.686 [id number] 311 [id number] [facility] 2021-08-02 00:00:00 2021-08-02 00:00:00 RefAshley Schultz [facility] 1.2.840.114 350.1.13.10 4.2.7.2.686 [id number] [facility] 2021-08-02 00:00:00 2021-08-02 00:00:00 New Prieto [facility] MULTISPEC [facility]ALTY [facility] 1.840.114 350.1.13.10 4.2.7.2.686 [id number] [id number] [facility] 2021-08-02 00:00:00 2021-08-02 00:00:00 Catalina Alvarez [facility] 1..840.114 350.1.13.10 4.2.7.2.686 [id number] [facility] 2021-08-01 00:00:00 2021-08-01 00:00:00 Telephone Rene Olvera [facility] MULTISPEC IALTY [facility]ENTER AND [facility] 1.840.114 350.1.13.10 4.2.7.2.686 [id number] [id number] [facility] 2021-07-29 12:53:28 2021-07-29 23:59:00 Hospital Encounter Curtis Morley [facility] MULTISPEC IALTY CENTER AND [facility] 1.840.114 350.1.13.10 4.2.7.2.686 [id number] [facility] 2021-07-29 12:53:28 2021-07-29 23:59:00 Outpatient R CURTIS MORLEY [facility] [id number] [facility] 2021-07-29 13:30:00 2021-07-29 14:00:00 Office Visit Curtis Morley [facility] MULTISPEC IALTY CENTER AND [facility] 1.840.114 350.1.13.10 4.2.7.2.686 [id number] [facility] 2021-07-29 13:30:00 2021-07-29 13:30:00 Outpatient Annalee CURTIS MORLEY [facility] [id number] [facility] 2021-07-28 00:00:00 2021-07-28 00:00:00 Telephone Curtis Morley [facility] MULTISPEC IALTY [facility]ENTER AND [facility] 1.2840.114 350.1.13.10 4.2.7.2.686 [id number] 011 [id number] [facility] 2021-07-27 00:00:00 2021-07-27 00:00:00 Telephone Curtis Morley [facility] MULTISPEC IALTY CENTER AND [facility] 1.284.114 350.1.13.10 4.2.7.2.686 [id number] [id number] [facility] 2021-07-20 16:45:00 2021-07-20 17:37:40 Outpatient SAMINA BLACK [facility] [id number] [facility] 2021-07-20 16:19:24 2021-07-20 17:37:40 Urgent Care Samina Booker A Unknown, Attending [facility] 1.840.114 350.1.13.10 4.2.7.2.686 [id number] [facility] 2021-07-05 10:00:00 2021-07-05 10:00:00 Outpatient CURTIS HARRISON [facility] [id number] [facility] 2021-07-01 16:00:00 2021-07-01 14:32:17 [id number] 2021-07-01 11:41:16 2021-07-01 11:56:16 Nurse Visit Nurse, Anthony Marroquin Urgent Unknown, Attending [facility] 1.2.840.114 350.1.13.10 4.2.7.2.686 [id number] [facility] 2021-06-30 00:00:00 2021-06-30 00:00:00 Telephone Peyman Curtis Helms [facility] MULTISPEC IALTY [facility] AND [facility] 1.84.114 350.1.13.10 4.2.7.2.686 [id number] [facility] 2021-06-28 10:23:31 2021-06-28 11:23:31 Nurse Visit Therapy, Clc Covid Tejinder Casas [facility] 1.284.114 350.1.13.10 4.2.7.2.686 [id number] [facility] 2021-06-28 10:30:00 2021-06-28 10:30:00 Outpatient R TEJINDER VALLES [facility] [id number] [facility] 2021-06-27 09:00:00 2021-06-27 09:00:00 Outpatient R RADHA TRINIDAD [facility] [id number] [facility] 2021-06-27 08:22:01 2021-06-27 08:52:01 Telemedici ne Visit Radha Trinidad [facility] 1.840.114 350.1.13.10 4.2.7.2.686 [id number] [facility] 2021-06-25 09:06:44 2021-06-25 09:55:18 Urgent Care Ashley Raines Unknown, Attending [facility] 1.2840.114 350.1.13.10 4.2.7.2.686 [id number] [facility] 2021-06-25 09:00:00 2021-06-25 09:55:18 Outpatient R ASHLEY RAINES [facility] [id number] [facility] 2021-06-06 17:12:40 2021-06-06 17:50:36 Urgent Care Ever Fierro Unknown, Attending [facility] 1.2.840.114 350.1.13.10 4.2.7.2.686 [id number] [facility] 2021-06-06 17:15:00 2021-06-06 17:15:00 Outpatient R UNKNOWN, ATTENDING [facility] [id number] [facility] 2021-06-06 00:00:00 2021-06-06 00:00:00 [facility] [place] 1.2.840.114 350.1.13.10 4.2.7.2.686 [id number] [facility] 2021-06-04 00:00:00 2021-06-04 00:00:00 Radha Stafford [facility] 1.2.840.114 350.1.13.10 4.2.7.2.686 [id number] [facility] 2021-05-31 00:00:00 2021-05-31 00:00:00 TomyRadha Caldwell [facility] 1.2.840.114 350.1.13.10 4.2.7.2.686 [id number] [facility] 2021-05-20 00:00:00 2021-05-20 00:00:00 Telephone Curtis Morley [facility] 1.2.840.114 350.1.13.10 4.2.7.2.686 [id number] [facility] 2021-05-03 09:27:09 2021-05-03 09:42:09 Service Order Dispatcher Chief Visit Lab, Anthony Kumar Stew Barrington Peck [facility] 1.2.840.114 350.1.13.10 4.2.7.2.686 [id number] [facility] 2021-05-03 09:27:09 2021-05-03 09:42:09 Service Order Dispatcher Chief Visit Lab, Gal [facility] Stew RdBarrington Laboy [facility] 1.2840.114 350.1.13.10 4.2.7.2.686 [id number] [facility] 2021-05-03 08:00:00 2021-05-03 08:00:00 Outpatient CATALINA BARNHART [facility] [id number] [facility] 2021-04-28 14:00:00 2021-04-28 14:00:00 Outpatient CURTIS HARRISON [facility] [id number] [facility] 2021-04-28 00:00:00 2021-04-28 00:00:00 Telephone Curtis Morley Scooter [facility] 1.84.114 350.1.13.10 4.2.7.2.686 [id number] [facility] 2021-04-25 15:41:06 2021-04-25 16:11:06 Office Visit Catalina Mendez [facility] 1.2840.114 350.1.13.10 4.2.7.2.686 [id number] [facility] 2021-04-25 13:30:00 2021-04-25 13:30:00 Outpatient CATALINA BARNHART [facility] [id number] [facility] 2021-04-19 11:30:00 2021-04-19 11:30:00 Outpatient HEATH PAPPAS [facility] [id number] [facility] 2021-04-16 00:00:00 2021-04-16 00:00:00 Radha Stafford [facility] 1.2.840.114 350.1.13.10 4.2.7.2.686 [id number] [facility] 2021-04-16 00:00:00 2021-04-16 00:00:00 Radha Stafford [facility] 1.2.840.114 350.1.13.10 4.2.7.2.686 [id number] [facility] 2021-03-29 16:04:00 2021-03-29 23:55:00 Emergency Brady Ivy Ped[facility] 1.2.840.114 350.1.13.10 4.2.7.2.686 [id number] [facility] 2021-03-28 00:00:00 2021-03-28 00:00:00 Patient Secure Msg Doctor Unassigned, [place] [facility] 1.2.840.114 350.1.13.10 4.2.7.2.686 [id number] [facility] 2021-03-28 00:00:00 2021-03-28 00:00:00 Letter (Out) Norma Parker [facility] 1.2.840.114 350.1.13.10 4.2.7.2.686 [id number] [facility] 2021-03-27 00:00:00 2021-03-27 00:00:00 Telephone Samina Booker [facility] 1.2.840.114 350.1.13.10 4.2.7.2.686 [id number] [facility] 2021-03-26 16:32:41 2021-03-26 18:13:07 Urgent Care Samina Booker [facility] 1.2.840.114 350.1.13.10 4.2.7.2.686 [id number] [facility] 2021-03-26 16:30:00 2021-03-26 16:30:00 Outpatient R SAMINA BOOKRE [facility] [id number] [facility] 2021-03-25 08:00:00 2021-03-25 08:00:00 Outpatient CURTIS HARRISON [facility] [id number] [facility] 2021-03-24 15:42:41 2021-03-24 16:12:41 Telemedici ne Visit [place] [facility] MULTISPEC [facility]ALTY [facility] AND [facility] 1.840.114 350.1.13.10 4.2.7.2.686 [id number] [facility] 2021-03-24 16:00:00 2021-03-24 16:00:00 Outpatient NEW BLACK [facility] [id number] [facility] 2021-03-24 09:30:00 2021-03-24 09:30:00 Outpatient CURTIS HARRISON [facility] [id number] [facility] 2021-03-24 00:00:00 2021-03-24 00:00:00 [facility] 1..114 350.1.13.10 4.2.7.2.686 [id number] [id number] [facility] 2021-03-21 14:56:09 2021-03-21 15:11:09 Service Order Dispatcher Chief Visit Vtc-Lab [place] [facility] MULTISPEC [facility]TY [facility] 1.84.114 350.1.13.10 4.2.7.2.686 [id number] [facility] 2021-03-21 14:45:00 2021-03-21 14:45:00 Outpatient NEW BLACK [facility] [id number] [facility] 2021-03-21 00:00:00 2021-03-21 00:00:00 Telephone Curtis Morley [facility] MULTISPEC IALTY CENTER AND [facility] 1.840.114 350.1.13.10 4.2.7.2.686 [id number] [id number] [facility] 2021-03-04 00:00:00 2021-03-04 00:00:00 Patient Secure [place] [facility] 1.840.114 350.1.13.10 4.2.7.2.686 [id number] [id number] [facility] 2021-03-02 00:00:00 2021-03-02 00:00:00 Refill Radha Trinidad [facility] 1.0.114 350.1.13.10 4.2.7.2.686 [id number] [facility] 2021-02-22 13:46:43 2021-02-22 14:41:46 Office Visit [place] [facility] 1..114 350.1.13.10 4.2.7.2.686 [id number] [id number] [facility] 2021-02-22 14:00:00 2021-02-22 14:00:00 Outpatient R [place] [facility] [id number] [facility] 2021-02-16 00:00:00 2021-02-16 00:00:00 Telephone Radha Trinidad [facility] 1..114 350.1.13.10 4.2.7.2.686 [id number] [facility] 2021-02-12 13:51:08 2021-02-12 15:01:56 Urgent Care Care, Gal Adult Urgent Unknown, Attending Ashley Raines [facility] [place] 1.84.114 350.1.13.10 4.2.7.2.686 [id number] [facility] 2021-02-12 13:45:00 2021-02-12 13:45:00 Outpatient R UNKNOWN, ATTENDING [facility] [id number] [facility] 2021-02-12 00:00:00 2021-02-12 00:00:00 [facility] [place] [facility] 1..114 350.1.13.10 4.2.7.2.686 [id number] [id number] [facility] 2021-02-11 00:00:00 2021-02-11 00:00:00 Telephone Radha Trinidad [facility] 1.0.114 350.1.13.10 4.2.7.2.686 [id number] [facility] 2021-02-08 09:00:00 2021-02-08 09:00:00 Outpatient R CURTIS MORLEY [facility] [id number] [facility] 2021-02-08 00:00:00 2021-02-08 00:00:00 Telephone Radha Trinidad [facility] 1..114 350.1.13.10 4.2.7.2.686 [id number] [facility] 2021-02-01 00:00:00 2021-02-01 00:00:00 [facility] 1.114 350.1.13.10 4.2.7.2.686 [id number] [id number] [facility] 2021-01-31 00:00:00 2021-01-31 00:00:00 Orders Only Doctor Unassigned, [place] [facility] 1..114 350.1.13.10 4.2.7.2.686 [id number] [facility] 2021-01-30 00:00:00 2021-01-30 00:00:00 Chan Suarez [facility] MULTISPEC IALTY [facility]ENTER [facility] 1.2840.114 350.1.13.10 4.2.7.2.686 [id number] [id number] [facility] 2021-01-30 00:00:00 2021-01-30 00:00:00 RefRadha Caldwell [facility] 1.2.840.114 350.1.13.10 4.2.7.2.686 [id number] [facility] 2021-01-25 13:30:00 2021-01-25 13:30:00 Outpatient RADHA GUPTA [facility] [id number] [facility] 2021-01-24 15:50:41 2021-01-24 16:59:23 Office Visit Radha Trinidad [facility] 1.2.840.114 350.1.13.10 4.2.7.2.686 [id number] [facility] 2021-01-24 16:00:00 2021-01-24 16:00:00 Outpatient RADHA GUPTA [facility] [id number] [facility] 2021-01-20 09:00:00 2021-01-20 09:00:00 Outpatient RADHA GUPTA [facility] [id number] [facility] 2021-01-11 09:30:00 2021-01-11 09:30:00 Outpatient CURTIS HARRISON [facility] [id number] [facility] 2021-01-07 11:30:00 2021-01-07 11:30:00 Outpatient AZALIA ORELLANA [facility] [id number] [facility] 2021-01-05 00:00:00 2021-01-05 00:00:00 Telephone Radha Trinidad [facility] 1.2.840.114 350.1.13.10 4.2.7.2.686 [id number] [facility] 2021-01-03 00:00:00 2021-01-03 00:00:00 Patient Secure Msg Azalia Michel [facility] 1.2840.114 350.1.13.10 4.2.7.2.686 [id number] [facility] 2020-12-31 00:00:00 2020-12-31 00:00:00 Patient Secure Msg Doctor Unassigned, [place] [facility] 1.2840.114 350.1.13.10 4.2.7.2.686 [id number] [facility] 2020-12-31 00:00:00 2020-12-31 00:00:00 Refill Doctor Unassigned, [place] [facility] 1.840.114 350.1.13.10 4.2.7.2.686 [id number] [id number] [facility] 2020-12-31 00:00:00 2020-12-31 00:00:00 Refill Cait Sainz [facility] 1.2.840.114 350.1.13.10 4.2.7.2.686 [id number] [facility] 2020-12-31 00:00:00 2020-12-31 00:00:00 Refill Doctor Unassigned, [place] [facility] 1.2840.114 350.1.13.10 4.2.7.2.686 [id number] [facility] 2020-12-30 17:19:08 2020-12-30 17:34:08 Urgent Care Monika Summers Unknown, Attending [facility] 1.2840.114 350.1.13.10 4.2.7.2.686 [id number] [facility] 2020-12-30 17:15:00 2020-12-30 17:15:00 Outpatient R UNKNOWN, ATTENDING [facility] [id number] [facility] 2020-12-24 10:30:00 2020-12-24 10:30:00 Outpatient R AZALIA MICHEL [facility] [id number] [facility] 2020-12-24 00:00:00 2020-12-24 00:00:00 Orders Only Doctor Unassigned, [place] [facility] 1..114 350.1.13.10 4.2.7.2.686 [id number] [facility] 2020-12-21 09:12:04 2020-12-21 10:15:32 Office Visit [facility] 1.114 350.1.13.10 4.2.7.2.686 [id number] [id number] [facility] 2020-12-21 09:30:00 2020-12-21 09:30:00 Outpatient R CURTIS MORLEY [facility] [id number] [facility] 2020-12-20 00:00:00 2020-12-20 00:00:00 Telephone Curtis Morley [facility] 1.114 350.1.13.10 4.2.7.2.686 [id number] [id number] [facility] 2020-12-14 08:55:44 2020-12-14 08:56:16 Office Visit Camilo Corley [facility] [employer] [facility] 1..114 350.1.13.10 4.2.7.2.686 [id number] [facility] 2020-12-14 08:15:00 2020-12-14 08:15:00 Outpatient R CAMILO CORLEY [facility] [id number] [facility] 2020-12-14 07:58:10 2020-12-14 08:13:10 Office Visit Camilo Corley [facility]. 1..114 350.1.13.10 4.2.7.2.686 [id number] [facility] 2020-12-14 08:00:00 2020-12-14 08:00:00 Outpatient R CAMILO CORLEY [facility] [id number] [facility] 2020-12-13 11:00:00 2020-12-13 11:00:00 Outpatient R EMILY ARGUETA [facility] [id number] [facility] 2020-12-08 00:00:00 2020-12-08 00:00:00 Patient Secure Msg Doctor Unassigned, [place] [facility] 1..114 350.1.13.10 4.2.7.2.686 [id number] [facility] 2020-12-03 08:06:52 2020-12-03 09:07:25 Office Visit [place], [facility] Resident Jenny Avila [facility] 1..114 350.1.13.10 4.2.7.2.686 [id number] [facility] 2020-12-03 08:00:00 2020-12-03 08:00:00 Outpatient R [facility] [id number] [facility] 2020-12-01 00:00:00 2020-12-01 00:00:00 Radha Stafford [facility] 1..114 350.1.13.10 4.2.7.2.686 [id number] [facility] 2020-11-29 00:00:00 2020-11-29 00:00:00 Patient Secure Msg Doctor Unassigned, [place] [facility] 1.840.114 350.1.13.10 4.2.7.2.686 [id number] [facility] 2020-11-26 09:13:13 2020-11-26 09:43:13 [facility] 1.2.840.114 350.1.13.10 4.2.7.2.686 [id number] [facility] 2020-11-26 09:00:00 2020-11-26 09:00:00 Outpatient R TAURUS GUADALUPE [facility] [id number] [facility] 2020-11-15 11:15:00 2020-11-15 11:15:00 Outpatient R EMILY ARGUETA [facility] [id number] [facility] 2020-11-09 16:30:40 2020-11-09 17:00:40 Office Visit Radha Trinidad [facility] 1..840.114 350.1.13.10 4.2.7.2.686 [id number] [facility] 2020-11-09 16:30:00 2020-11-09 16:30:00 Outpatient R RADHA TRINIDAD [facility] [id number] [facility] 2020-11-02 00:00:00 2020-11-02 00:00:00 Patient Outreach [place] Giron [facility] 1..840.114 350.1.13.10 4.2.7.2.686 [id number] [facility] 2020-10-29 00:00:00 2020-10-29 00:00:00 Telephone Radha Trinidad [facility] 1.2.840.114 350.1.13.10 4.2.7.2.686 [id number] [facility] 2020-10-28 13:00:00 2020-10-28 23:59:00 Hospital Encounter Radha Trinidad [facility] 1.114 350.1.13.10 4.2.7.2.686 [id number] [facility] 2020-10-28 00:00:00 2020-10-28 00:00:00 Outpatient RADHA GUPTA [facility] [id number] [facility] 2020-10-22 00:00:00 2020-10-22 00:00:00 Telephone Radha Trinidad [facility] FAMILY MEDICINE [facility] 1..114 350.1.13.10 4.2.7.2.686 [id number] [facility] 2020-10-21 08:04:47 2020-10-21 08:59:28 Office Visit Radha Trinidad [facility] 1.114 350.1.13.10 4.2.7.2.686 [id number] [facility] 2020-10-21 08:00:00 2020-10-21 08:00:00 Outpatient RADHA GUPTA [facility] [id number] [facility] 2020-10-18 07:52:00 2020-10-18 11:07:00 Hospital Encounter Curtis Morley [facility] .114 350.1.13.10 4.2.7.2.686 [id number] [facility] 2020-10-18 00:00:00 2020-10-18 00:00:00 Orders Only Doctor Unassigned, [place] [facility] 1.114 350.1.13.10 4.2.7.2.686 [id number] [facility] 2020-10-15 09:59:05 2020-10-15 10:14:05 Laboratory Only Only, Pcp Test Curtis Morley [facility]AVILL[facility] 1.2.840.114 350.1.13.10 4.2.7.2.686 [id number] [facility] 2020-10-15 10:00:00 2020-10-15 10:00:00 Outpatient CURTIS HARRISON [facility] [id number] [facility] 2020-10-14 00:00:00 2020-10-14 00:00:00 Telephone Radha Trinidad [facility] 1.2.840.114 350.1.13.10 4.2.7.2.686 [id number] [facility] 2020-10-14 00:00:00 2020-10-14 00:00:00 Telephone Radha Trinidad [facility] 1.2.840.114 350.1.13.10 4.2.7.2.686 [id number] [facility] 2020-10-14 00:00:00 2020-10-14 00:00:00 Telephone Emily Argueta [facility] 1.2.840.114 350.1.13.10 4.2.7.2.686 [id number] [facility] 2020-10-13 08:47:44 2020-10-13 10:04:25 Office Visit Radha Trinidad [facility] 1.2.840.114 350.1.13.10 4.2.7.2.686 [id number] [facility] 2020-10-13 09:00:00 2020-10-13 09:00:00 Outpatient RADHA GUPTA [facility] [id number] [facility] 2020-10-11 11:15:00 2020-10-11 11:15:00 Outpatient EMILY MADERA [facility] [id number] [facility] 2020-10-06 00:00:00 2020-10-06 00:00:00 Patient Secure Msg Doctor Unassigned, [place] [facility] 1..114 350.1.13.10 4.2.7.2.686 [id number] [facility] 2020-09-24 00:00:00 2020-09-24 00:00:00 Solis Hollingsworth [facility] 1..114 350.1.13.10 4.2.7.2.686 [id number] [facility] 2020-09-23 08:43:07 2020-09-23 09:51:11 Office Visit Curtis Morley [facility] 1.114 350.1.13.10 4.2.7.2.686 [id number] [facility] 2020-09-23 09:00:00 2020-09-23 09:00:00 Outpatient R CURTIS MORLEY [facility] [id number] [facility] 2020-09-23 00:00:00 2020-09-23 00:00:00 Prep For Surgery Chan Souza [facility] 1.114 350.1.13.10 4.2.7.2.686 [id number] [facility] 2020-09-17 14:30:00 2020-09-17 14:30:00 Outpatient R [facility] [id number] [facility] 2020-09-13 00:00:00 2020-09-13 00:00:00 Letter (Out) Norma Parker [facility] 1.114 350.1.13.10 4.2.7.2.686 [id number] [facility] 2020-09-11 11:21:37 2020-09-11 11:36:37 Urgent Care Ashley Raines [facility] 1.2.840.114 350.1.13.10 4.2.7.2.686 [id number] [facility] 2020-09-11 11:30:00 2020-09-11 11:30:00 Outpatient R ASHLEY RAINES [facility] [id number] [facility] 2020-09-08 19:59:31 2020-09-08 20:28:35 Urgent Care Bryan Bookerenn Erna [facility] 1.2840.114 350.1.13.10 4.2.7.2.686 [id number] [facility] 2020-09-08 19:45:00 2020-09-08 19:45:00 Outpatient SAMINA BLACK [facility] [id number] [facility] 2020-09-02 16:33:28 2020-09-02 16:48:28 Service Order Dispatcher Chief Visit [facility] Skyler Ferrari [facility] 1.840.114 350.1.13.10 4.2.7.2.686 [id number] [facility] 2020-09-02 16:03:20 2020-09-02 16:33:20 Office Visit Skyler Ferrari [facility] 1.2840.114 350.1.13.10 4.2.7.2.686 [id number] [facility] 2020-09-02 16:00:00 2020-09-02 16:00:00 Outpatient R SKYLER FERRARI [facility] [id number] [facility] 2020-08-27 10:22:19 2020-08-27 11:41:08 Office Visit Emily Argueta [facility] 1.2840.114 350.1.13.10 4.2.7.2.686 [id number] [facility] 2020-08-27 10:30:00 2020-08-27 10:30:00 Outpatient EMILY MADERA [facility] [id number] [facility] 2020-08-27 00:00:00 2020-08-27 00:00:00 Orders Only Doctor Unassigned, [place] [facility] 1.2.840.114 350.1.13.10 4.2.7.2.686 [id number] [facility] 2020-08-20 13:00:00 2020-08-20 13:00:00 Outpatient R EMILY ARGUETA [facility] [id number] [facility] 2020-08-19 10:34:33 2020-08-19 11:38:15 Office Visit Micheline Mixon [facility] 1.2840.114 350.1.13.10 4.2.7.2.686 [id number] [facility] 2020-08-19 10:30:00 2020-08-19 10:30:00 Outpatient Annalee MICHELINE MIXON [facility] [id number] [facility] 2020-08-17 00:00:00 2020-08-17 00:00:00 Patient Secure Msg [facility] 1.2840.114 350.1.13.10 4.2.7.2.686 [id number] [facility] 2020-08-12 09:30:00 2020-08-12 09:30:00 Outpatient SKYLER DOUGHERTY [facility] [id number] [facility] 2020-07-31 16:16:45 2020-07-31 16:31:45 Urgent Care Ashley Raines [facility] 1.2.840.114 350.1.13.10 4.2.7.2.686 [id number] [facility] 2020-07-31 16:15:00 2020-07-31 16:15:00 Outpatient R ASHLEY RAINES [facility] [id number] [facility] 2020-07-31 00:00:00 2020-07-31 00:00:00 Patient Secure Msg Doctor Unassigned, [place] [facility] 1.2.840.114 350.1.13.10 4.2.7.2.686 [id number] [facility] 2020-07-31 00:00:00 2020-07-31 00:00:00 Orders Only Doctor Unassigned, [place] [facility] 1.2840.114 350.1.13.10 4.2.7.2.686 [id number] [facility] 2020-07-29 00:00:00 2020-07-29 00:00:00 Patient Secure Msg Doctor Unassigned, [place] [facility] 1.2840.114 350.1.13.10 4.2.7.2.686 [id number] [facility] 2020-07-28 16:05:38 2020-07-28 16:20:38 Urgent Care Samina Booker A Unknown, Attending [facility] 1.2.840.114 350.1.13.10 4.2.7.2.686 [id number] [facility] 2020-07-28 16:15:00 2020-07-28 16:15:00 Outpatient R UNKNOWN, ATTENDING [facility] [id number] [facility] 2020-07-27 00:00:00 2020-07-27 00:00:00 Telephone Radha Trinidad [facility] 1.2.840.114 350.1.13.10 4.2.7.2.686 [id number] [facility] 2020-07-27 00:00:00 2020-07-27 00:00:00 Telephone Radha Trinidad [facility] 1.2.840.114 350.1.13.10 4.2.7.2.686 [id number] [facility] 2020-07-27 00:00:00 2020-07-27 00:00:00 Telephone Radha Trinidad [facility] FAMILY MEDICINE [facility] 1.20.114 350.1.13.10 4.2.7.2.686 [id number] [facility] 2020-07-23 14:42:56 2020-07-23 15:29:43 Office Visit Aiyana Hollingsworth [facility] 1.2.114 350.1.13.10 4.2.7.2.686 [id number] [facility] 2020-07-23 14:45:00 2020-07-23 14:45:00 Outpatient R [facility] [id number] [facility] 2020-07-23 10:06:48 2020-07-23 10:46:48 Ancillary Visit Maki Jacobo Brian A [facility] 1..114 350.1.13.10 4.2.7.2.686 [id number] [facility] 2020-07-23 00:00:00 2020-07-23 00:00:00 Telephone Radha Trinidad [facility] 1.2.114 350.1.13.10 4.2.7.2.686 [id number] [facility] 2020-07-22 00:00:00 2020-07-22 00:00:00 Nurse Triage Bessie Alexandre [facility] 1..114 350.1.13.10 4.2.7.2.686 [id number] [facility] 2020-07-17 12:40:52 2020-07-17 23:59:00 Hospital Encounter Skyler Ferrari [facility] 1.2.114 350.1.13.10 4.2.7.2.686 [id number] [facility] 2020-07-17 12:40:52 2020-07-17 23:59:00 Outpatient SKYLER DOUGHERTY [facility] [id number] [facility] 2020-07-16 13:30:27 2020-07-16 14:23:07 Office Visit Fellow, Cardiology Alejandra Guadalupemad [facility] 1.2840.114 350.1.13.10 4.2.7.2.686 [id number] [facility] 2020-07-16 13:30:00 2020-07-16 13:30:00 Outpatient Annalee GUADALUPE CONDON [facility] [id number] [facility] 2020-07-15 12:00:00 2020-07-15 12:00:00 Outpatient SKYLER DOUGHERTY [facility] [id number] [facility] 2020-07-13 10:03:54 2020-07-13 12:32:51 Office Visit Octavio Anderson [facility] 1.2.840.114 350.1.13.10 4.2.7.2.686 [id number] [facility] 2020-07-13 10:10:00 2020-07-13 10:10:00 Outpatient OCTAVIO HALE [facility] [id number] [facility] 2020-07-13 08:09:29 2020-07-13 09:09:29 Ancillary Visit Rain Ross Brian A [facility] 1..840.114 350.1.13.10 4.2.7.2.686 [id number] [facility] 2020-07-13 08:00:00 2020-07-13 08:00:00 Outpatient BRADY WOLFE [facility] [id number] [facility] 2020-06-30 15:35:16 2020-06-30 16:05:16 Office Visit Skyler Ferrari [facility] 1..114 350.1.13.10 4.2.7.2.686 [id number] [facility] 2020-06-30 15:30:00 2020-06-30 15:30:00 Outpatient SKYLER DOUGHERTY [facility] [id number] [facility] 2020-06-30 09:49:13 2020-06-30 10:57:25 Office Visit Lucille Banks [facility] 1..114 350.1.13.10 4.2.7.2.686 [id number] [facility] 2020-06-25 14:51:00 2020-06-25 16:02:06 Office Visit Edel [facility] 1.114 350.1.13.10 4.2.7.2.686 [id number] [facility] 2020-06-25 15:00:00 2020-06-25 15:00:00 Outpatient AIYANA INGRAM [facility] [id number] [facility] 2020-06-23 00:00:00 2020-06-23 00:00:00 Telephone Radha Trinidad [facility] 1..114 350.1.13.10 4.2.7.2.686 [id number] [facility] 2020-06-22 08:00:00 2020-06-22 08:00:00 Outpatient BRADY WOLFE [facility] [id number] [facility] 2020-06-22 00:00:00 2020-06-22 00:00:00 Refill Doctor Unassigned, [place] [facility] 1.84.114 350.1.13.10 4.2.7.2.686 [id number] [facility] 2020-06-14 12:54:45 2020-06-14 14:42:06 Office Visit Lucille Banks [facility] 1.2.840.114 350.1.13.10 4.2.7.2.686 [id number] [facility] 2020-06-14 13:00:00 2020-06-14 13:00:00 Outpatient R LUCILLE BANKS [facility] [id number] [facility] 2020-06-07 08:59:10 2020-06-07 10:09:23 Office Visit Radha Trinidad [facility] 1.840.114 350.1.13.10 4.2.7.2.686 [id number] [facility] 2020-06-07 09:00:00 2020-06-07 09:00:00 Outpatient RADHA GUPTA [facility] [id number] [facility] 2020-06-07 00:00:00 2020-06-07 00:00:00 Patient Secure Msg Doctor Unassigned, [place] [facility] 1..114 350.1.13.10 4.2.7.2.686 [id number] [facility] 2020-06-05 00:00:00 2020-06-05 00:00:00 [facility] 1.84.114 350.1.13.10 4.2.7.2.686 [id number] [facility] 2020-06-05 00:00:00 2020-06-05 00:00:00 Telephone [facility] 1.840.114 350.1.13.10 4.2.7.2.686 [id number] [facility] 2020-06-05 00:00:00 2020-06-05 00:00:00 Telephone Tony Grigsby [facility] 1.2.840.114 350.1.13.10 4.2.7.2.686 [id number] [facility] 2020-06-05 00:00:00 2020-06-05 00:00:00 Patient Secure Msg Doctor Unassigned, [place] [facility] 1.2.840.114 350.1.13.10 4.2.7.2.686 [id number] [facility] 2020-06-05 00:00:00 2020-06-05 00:00:00 Patient Secure Msg Doctor Unassigned, [place] [facility] 1.2.840.114 350.1.13.10 4.2.7.2.686 [id number] [facility] 2020-06-04 15:21:29 2020-06-04 16:31:00 Office Visit Jordan [facility] Resident Keri Yee [facility] 1.0.114 350.1.13.10 4.2.7.2.686 [id number] [facility] 2020-06-04 15:30:00 2020-06-04 15:30:00 Outpatient R [facility] [id number] [facility] 2020-06-04 00:00:00 2020-06-04 00:00:00 Patient Secure Msg Doctor Unassigned, [place] [facility] 1.20.114 350.1.13.10 4.2.7.2.686 [id number] [facility] 2020-06-03 10:01:28 2020-06-03 10:31:28 Office Visit Micheline Mixon [facility] 1.2840.114 350.1.13.10 4.2.7.2.686 [id number] [facility] 2020-06-03 10:00:00 2020-06-03 10:00:00 Outpatient R MICHELINE MIXON [facility] [id number] [facility] 2020-06-02 00:00:00 2020-06-02 00:00:00 Patient Secure Norbert Diaz [facility] [place] 1.840.114 350.1.13.10 4.2.7.2.686 [id number] [facility] 2020-05-31 00:00:00 2020-05-31 00:00:00 Telephone Micheline Mixon [facility] 1.0.114 350.1.13.10 4.2.7.2.686 [id number] [facility] 2020-05-31 00:00:00 2020-05-31 00:00:00 Telephone Pcp, Patient Does Not Have A [facility] 1.0.114 350.1.13.10 4.2.7.2.686 [id number] [facility] 2020-05-28 08:52:00 2020-05-28 12:40:00 Hospital Encounter Norbert Diaz [facility] ([facility]) 1.840.114 350.1.13.10 4.2.7.2.686 [id number] [facility] 2020-05-28 00:00:00 2020-05-28 00:00:00 Orders Only Doctor Unassigned, [place] [facility] 1.840.114 350.1.13.10 4.2.7.2.686 [id number] [facility] 2020-05-25 08:25:23 2020-05-25 08:40:23 Service Order Dispatcher Chief Visit Lab, [facility] Stew Gordy Kennedy [facility] 1.840.114 350.1.13.10 4.2.7.2.686 [id number] [facility] 2020-05-25 08:30:00 2020-05-25 08:30:00 Outpatient R SOLIS GORDY [facility] [id number] [facility] 2020-05-24 08:26:48 2020-05-24 08:41:48 Laboratory Only Only, Pcp Test Norbert Diaz [facility] 1.2.840.114 350.1.13.10 4.2.7.2.686 [id number] [facility] 2020-05-24 08:30:00 2020-05-24 08:30:00 Outpatient NORBERT MARSH GABRIEL [facility] [id number] [facility] 2020-05-17 00:00:00 2020-05-17 00:00:00 Patient Secure Msg Emeli [facility] 1.2840.114 350.1.13.10 4.2.7.2.686 [id number] [facility] 2020-05-14 13:06:12 2020-05-14 13:21:12 Service Order Dispatcher Chief Visit Lab, [facility] Stew Elder Welch [facility] 1.20.114 350.1.13.10 4.2.7.2.686 [id number] [facility] 2020-05-14 13:15:00 2020-05-14 13:15:00 Outpatient ELDER ORTIZ [facility] [id number] [facility] 2020-05-13 13:18:56 2020-05-13 17:12:41 Office Visit Cait Sainz [facility] 1.2.840.114 350.1.13.10 4.2.7.2.686 [id number] [facility] 2020-05-13 10:24:15 2020-05-13 11:30:53 Office Visit Micheline Mixon [facility] 1.2.840.114 350.1.13.10 4.2.7.2.686 [id number] [facility] 2020-05-13 10:30:00 2020-05-13 10:30:00 Outpatient R KALYNMICHELINE RAMSEY [facility] [id number] [facility] 2020-05-13 00:00:00 2020-05-13 00:00:00 Orders Only Doctor Unassigned, [place] [facility] 1.2.840.114 350.1.13.10 4.2.7.2.686 [id number] [facility] 2020-05-10 00:00:00 2020-05-10 00:00:00 Patient Secure Msg Doctor Unassigned, [place] [facility] 1.2.840.114 350.1.13.10 4.2.7.2.686 [id number] [facility] 2020-05-10 00:00:00 2020-05-10 00:00:00 Letter (Out) Norma Parker [facility] 1.2.840.114 350.1.13.10 4.2.7.2.686 [id number] [facility] 2020-05-09 10:57:08 2020-05-09 11:59:21 Urgent Care Samina Booker Unknown, Attending [facility] 1.2.840.114 350.1.13.10 4.2.7.2.686 [id number] [facility] 2020-05-09 11:00:00 2020-05-09 11:00:00 Outpatient R UNKNOWN, ATTENDING [facility] [id number] [facility] 2020-02-09 00:00:00 2020-02-09 00:00:00 Odilia Linn [facility] 1.2.840.114 350.1.13.10 4.2.7.2.686 [id number] [facility] 2020-01-27 13:30:00 2020-01-27 13:30:00 Outpatient SKYLER DOUGHERTY [facility] [id number] [facility] 2019-10-23 00:00:00 2019-10-23 00:00:00 Outpatient SKYLER DOUGHERTY [facility] [id number] [facility] 2019-10-10 00:00:00 2019-10-10 00:00:00 Telephone Skyler Ferrari [facility] 1.2.840.114 350.1.13.10 4.2.7.2.686 [id number] [facility] 2019-10-10 00:00:00 2019-10-10 00:00:00 Patient Secure Msg Doctor Unassigned, [place] [facility] 1.840.114 350.1.13.10 4.2.7.2.686 [id number] [facility] 2019-10-09 00:00:00 2019-10-09 00:00:00 Telephone Skyler Ferrari [facility] 1.2.840.114 350.1.13.10 4.2.7.2.686 [id number] [facility] 2019-09-16 17:21:41 2019-09-16 17:51:06 Office Visit Odilia Mejia [facility] 1.2840.114 350.1.13.10 4.2.7.2.686 [id number] [facility] 2019-09-16 17:20:00 2019-09-16 17:51:06 Outpatient ODILIA SCHILLING [facility] [id number] [facility] 2019-08-26 10:42:50 2019-08-26 13:40:32 Service Order Dispatcher Chief Visit Lab, [facility] Stew Elaina Magallanes [facility] 1.2.840.114 350.1.13.10 4.2.7.2.686 [id number] [facility] [id number] [facility] 2019-07-17 11:47:16 2019-07-17 16:16:00 Emergency X [facility] [id number] [facility] 2019-04-08 10:55:00 2019-04-08 10:55:00 Outpatient Bill Luque W W [id number] [facility] 2019-03-17 11:00:00 2019-03-17 11:00:00 Outpatient Walk-In, Ludmila CHW CHW [id number] [facility] 2019-03-13 16:00:00 2019-03-13 16:00:00 Outpatient Kami Medina W CHW [id number] [facility] 2019-03-01 10:49:00 2019-03-01 10:49:00 Outpatient Bill Luque Harish W [id number] [facility] 2019-02-25 07:47:00 2019-02-25 07:47:00 Outpatient Bill Luque Harish CHW [id number] [facility] 2019-02-24 12:40:00 2019-02-24 12:40:00 Outpatient Bill Luque Harish CHW [id number] [facility] 2019-02-20 11:19:00 2019-02-20 11:19:00 Outpatient Bill Luque Harish W [id number] [facility] 2019-02-19 15:20:00 2019-02-19 15:20:00 Outpatient Bill Luque CHW [id number] [facility] 2019-02-06 15:50:00 2019-02-06 15:50:00 Outpatient Radha Wilson Harish W [id number] [facility] 2019-01-07 16:14:00 2019-01-07 16:14:00 Outpatient Radha Wilson Harish W [id number] [facility] 2018-12-09 09:46:00 2018-12-09 09:46:00 Outpatient WilsonRadha [facility] [id number] [facility] 2018-11-19 08:00:00 2018-11-19 08:00:00 Outpatient Reyes Martinez [facility] [id number] [facility] 2018-10-29 16:00:00 2018-10-29 16:00:00 Outpatient Reyes Martinez [facility] [id number] [facility] 2018-10-14 14:20:00 2018-10-14 14:20:00 Outpatient Walk-In, Only [facility] [id number] [facility] 2018-10-12 09:20:00 2018-10-12 09:20:00 Outpatient Radha Bustamanten [facility] [id number] [facility] 2018-10-09 15:00:00 2018-10-09 15:00:00 Outpatient WilsonRadha [facility] [id number] [facility] 2018-08-28 10:37:00 2018-08-28 10:37:00 Outpatient WilsonRadha [facility] [id number] [facility] 2018-08-26 11:40:00 2018-08-26 11:40:00 Outpatient Walk-In, Only [facility] [id number] [facility] 2018-08-16 08:18:00 2018-08-16 08:18:00 Outpatient WilsonRadha [facility] [id number] [facility] 2018-08-09 10:39:00 2018-08-09 10:39:00 Outpatient Radha Wilson [facility] [id number] [facility] 2018-08-08 16:20:00 2018-08-08 16:20:00 Outpatient WilsonRadha [facility] [id number] [facility] Results Test Description Test Time Test Comments Results Result Co mments Source [facility] Hemoglobin A1C [id number] 20:36:00* Test Item Value Reference Range Interpretation Comme nts POCT HBA1C (test code = 4548-4) 6.7 % 4-6 A Lab Interpretation (test cod e = 60214-0) [facility]2023-09-12 21:04:40 These images do not require a Radiology diagnostic report.[facility] GLUCOSE (AUTOMATED)2023-09-12 20:25:01* Test Item Value Reference Range Interpretation Comme nts POCT GLU (test code = 9907309748) 134 mg/dL 70-110 H Lab Interpretation (test cod e = 73159-1) Abnormal [facility] GLUCOSE (AUTOMATED)2023-09-12 20:25:01* Test Item Value Reference Range Interpretation Comme nts POCT GLU (test code = 5286372139) 134 mg/dL 70-110 H Lab Interpretation (test cod e = 17843-5) Abnormal [facility] [id number] 20:06:00* Test Item Value Reference Range Interpretation Comme nts POCT PREG (test code = 1605) Negative On board controls acceptable with C Line (test code = 3574) Yes POCT PREG LOT # (test code = 3575) POCT PREG TEST DATE ( test code = 3576) [facility] [id number] 20:06:00* Test Item Value Reference Range Interpretation Comme nts POCT PREG (test code = 1605) Negative On board controls acceptable with C Line (test code = 3574) Yes POCT PREG LOT # (test code = 3575) POCT PREG TEST DATE ( test code = 3576) [facility] GLUCOSE (AUTOMATED)2023-05-11 18:13:39* Test Item Value Reference Range Interpretation Comme nts POCT GLU (test code = 3490217971) 144 mg/dL 70-110 H Lab Interpretation (test cod e = 41463-7) Abnormal [facility] GLUCOSE (AUTOMATED)2023-05-11 18:13:39* Test Item Value Reference Range Interpretation Comme nts POCT GLU (test code = 2161105233) 144 mg/dL 70-110 H Lab Interpretation (test cod e = 63095-7) [facility]normal [facility] W/REFL TITER AND$CONFIRMATORY [id number] 17:00:00* Test Item Value Reference Range Interpretation Comme nts RPR (DX) W/REFL TITER AND$CONFIRMATOR Y TESTING-Q (test code = 95598-6) NON-REACTIVE NON-REACTI REPORT COMMENT:FASTING:MAHESH Porter WILLIAMS (test code = WILLIAMS) PERFORMED BY [employer]; [address] [place] [address]; SAMAN JOYNER MD,PHD. [facility] [id number] 18:58:00* Test Item Value Reference Range Interpretation Comme nts POCT PREG (test code = 1605) Negative On board controls acceptable with C Line (test code = 3574) Yes POCT PREG LOT # (test code = 3575) POCT PREG TEST DATE ( test code = 3576) [facility] [id number] 18:58:00* Test Item Value Reference Range Interpretation Comme nts POCT PREG (test code = 1605) Negative On board controls acceptable with C Line (test code = 3574) Yes POCT PREG LOT # (test code = 3575) POCT PREG TEST DATE ( test code = 3576) [facility] [id number] 17:26:34* Test Item Value Reference Range Interpretation Comme nts Case Report (test code = 6810057070) Surgical Pathology ?Case: [id number] ? Authorizing Provider: ?Norbert Diaz MD ?Collected: ? 04/09/2023 0905 ?Ordering Location: ? ? [facility] ? ? Received: ?04/09/2023 1134 ? Center ? Pathologist: ? Karime Rubio MD ? Specimens: ? A) - STOMACH, 1. GASTRIC BX EVAL H. PYLORI ? B) - ESOPHAGUS, 2. DISTAL ESOPHAGEAL BX EVAL EOE ? C) - ESOPHAGUS, 3. PROXIMAL ESOPHAGEAL BX EVAL EOE ? Final Diagnosis (test code = 8701216891) a3pzsGZjMAJhu8jwUADqkD FuZzEwMzNcZnRuYmpcdWMx IHtccnRmMVxhbnNpXGRlZm qnwrfdUQLeANP9klBkFKPt SCV8MQS4QgSyZCZrOjNqCC DiTDVah3zwb2NhoVXcjRNe CMzpxFEmkmBile44oRH4aX 46RG4cNUUsXwJ7BCYuwuD7 Omt0KZEnKDMmsRQzQ378a0 xcj7duzhCjpIS0wWyvBYLl sxvzLwH1UIofFHNcoroxIM q3XAzkNIPakSX5YTUicYUh J8RjLIWgUR2fnkq4TQS3QO cbSVKnYdC1UXHkgQJwQYZa dTgcJTicb249CKZ2YkSsCT GgojFypTiaxY8rIkKaUVsz JKUaZI6zW7FJNTHMTBaoKp lPUFNZOlxwYXJcZmkyODMg UVLSKXIXQzoRFF2TC52XFD JQTMKYWR2ZUIGRLLpSCF4L LEVqV8yRYthNKHOlelQsVB 5PIElOVEVTVElOQUwgTUVU QVBMQVNJQSBJREVOVElGSU VEXHBhclxmaTAgICAgICAt VH8VHCqoSCSOEL6BPQPVGe dBTklTTVMgSURFTlRJRklF RCBccGFyXGZzMjJccGFyXG UqSjGtZy0yKLYKVNbYV9KO BYVMZZMVPHgyYMYWR4HWDS pccGFyICAgICAtIFNRVUFN I0RUBIQPQRRMZKtSMM6rR3 yFOENHSzZILKWTF0rFN7hR ULfrQ3wDFuhDLOeqTVQwFW WuDK0qDk2dAFPEWTIPP3Bf D3SjZL1ZWJ6ZBIzIXEyEPT LQT0FKNSyJYWnIVMoCIQ5K SUZJRUQgXHBhclxmczIyXH NorflbhsEjXNOiCWUMR8EL QUdVUywgUFJPWElNQUwsIE UTK3BOGTpntIJeHQEmBYFs RGWKREEHZ1GIFEIJDOOLLL qEGJ0iZ3pPOVTBYvVPJMEY S1yWK2rLOWjyZ4dZBkrWPM oxXNQwFXHrPK0cJy2nNKMG MZAKR7TeI9JfPG9HZV2UFL oAKKlJBJQHB4DJDUdNFWaO DZySDS2CDGEIWEDoEGKjyo rgIBFrFTAxuq93MIC8EuIu w8H7CTAmShHnIAZbQY1tdB feVDLhWC1dEIXyS4cjoP3v ali2KuEuYSZbDiK4HKGote U3Ilv9RIEkNNhih6pxp9Ch S8OmiLFpnAi3q3ahDVTdVa V7zLPeMYfpD3mbvrSroARs LTQgUDt3hSrnEzWyIQOsf5 lzcyBcZmNoYXJzZXQwIENh dEngnjv0tZ97RFLqmJ5xtM CtRJqrscLpTdN5GHcfSBOv NsR5SWVxvLRwELIhS3tvGY QwXGdyZWVuMFxibHVlMCA7 bIbpz6V9fUQdpTItmYdtBy TwInFfDMNFo2ZqVUn9pDdx R1VkTLYrDzM8lGXsYUOhDB zkEQAvUZEazhU5uG65MJuz shQ8dQJsr3Hfx38ea919dV 9rrJKrCIE0HEZzHJKmlALr JDMpHCK4OFHaaVUdK5snEV QkKG2blpjrWXbrWJotGUSk qWW3JXPevIYbC7BlINXlIX bgAJDzoos6RgSxVz2ygGZq zOclZAczt8oac0fptIToIa r9KOBwSrObKiymNYpdz5Ux w9njLHEpjg9qWOR2sKTkgG dek4V8bXRaXPCjuZLfraLu MUVqAzO5SSiyDA9jud31ZN IxLRJ8rf0ngYDgoXomglOe gBVyYJbfO9BtFTWbc025GU XcW9JtASNny3M0zoXmFgWf BVFxfOR1nyM4JCWrMCw7fP UecyY0dzJvhVWfR2zfmH4n XNXvMA4dveacl1ssLCtcFB maHXAtdWH9avL4NRCagUEb E5AwfP1iAEZvQJtcTTWpxt o0OuIdMy4cqNYghWhfYJyh YmtwYWdlXHBnbmNvbnRccG duZGVjXHBsYWluXHBsYWlu XGYwXGZzMjRccWxccGxhaW 0vDuHlIlTiSBenBT5yANCq G9dqmSKgWCUiRMSfB9fxHq MffM0kdQrhZPbeUuNuXlOm MFxwYXIgSSBoYXZlIHBlcn FuhxMygBmvgyJ2uPB3MAZm JPjbUBKpUHLpzCFymp7spV nlTMYoZS4pDOJgcnZmAZji wTfxJDhpQWX7QMFocESktZ MgbWFkZSBieSByZXNpZGVu tUXkMWIohNgnj9Sxx0AbqP Y9fH9co9knt9BuRXVrwUY3 PR37koG8cU5uNAWqWP3wDX YxEB4toESwnUYdCZCaf59m dGhpcyByZXBvcnQuXHBsYW luXGYyXGZzMjhcbGFuZzEw MzNcaGljaFxmMlxkYmNoXG KlUPxhA8txCxSdUaPfWCgz LHE7kJgjmsGvYAcow3SmS6 YyMjAwMFxhbnNpXGRlZmxh psmeFXThKON4yjVpHCXmDY jdSHJtCTgyXk4faWAqhWic JrHgLYAii8hfraHPJNtxVc TnT865MZLhAZmzg2sur9Cz OJUiwLZdh2I7EDCZcjqqwE w3eUpiX01ut8P1YpccU8vx WBRsUJPkV0ObSG9nRCRvYs s2QSX6XVO9OHPxBFMvN7Jm ED6gJFLbxVDqAKw0g3odhJ rgOCToZIY0e9wqLKhifvN0 DW5cem2woRg8q9smdvFnIA DdKTHhzZWTMWZyR1PllHkb Pu2qeIm0nHgfZntcHDZ1Zr c2GT5fyx13kyn8wIxwHFAk lyemLuC8FMvoCKItzshzCI j7QAjaAFQrnEB7JZXriYId S1FxVAYiKK1cbuq7JJW0CB uwVAIbIzE0GMAxeDUvAUSi zJgaDOqoh461YZH9ItJmBD 7nC7Qtz0E6rX0mzIRmIGYy mMUrJiWyEUImxj5vgTRuHM ymg5RbS25yxCF5MUysj9wv IB6bPyD2ckUfDFait3olnZ 7gLyB6KSniIH2vwe36FBSc APM8nu7oyUPcmQfjkkFamH BzTDprA7EcVSBtu453NBFq V2CwGQCpt0K1wpRgZhSiEX VspIG9efT6HUYvFHl0oSTo emC4vpDfyZMoS2ilrO7hHM UjXZ7umgudl7xnMGenXOzc IIWniJR0qlO8WIXqvUXpB8 XffS6iMCQmXLfnYBEnsbv1 DtAeNx7wtHJieNxgJVogEl twYWdlXHBnbmNvbnRccGdu ZGVjXHBsYWluXHBsYWluXG UwGDBcLhDilZFlHXilm7Yb ghDbxNesGYIyRXt6ouHhnt ukuGe0lOIopBzbWGBciJyr wP6lDpWeSqRfZWecAX6xKT SxP1okuVJjJNUeNIXdP9gv PoAjmA2tzWeuAQphFwGwAt MyMFxsdHJjaFxwYXIgSSBo YXZlIHBlcnNvbmFsbHkgcm R1hIT4EGRrCNogFFQzTHNn aVQnyr4poFhqSYQlWB7rKU FncmVlIHdpdGggYWxsIHN0 YXRlbWVudHMgbWFkZSBieS ByZXNpZGVudHMsIGZlbGxv x4Kbt2JelDN8kD9zn5chx6 QjATLypOG2HH74tjX9kA9v BVJgTP1lJOQxOY4ftERsfJ IrGSXfr44giYixiiUcCEQl cnQuXHBsYWluXGYxXGZzMj BcbGFuZzEwMzNcaGljaFxm XMfvCuOuTQXxGBooU4xsEh WoK8BcDKFvGyOozCDwJTOx nlpgFEJfj7RvHlVae9qcSS git4qlfQs2SXzfkRVmrgjw LQwfatC0JPAlLRopYHKvNB ZzMTRcbGFuZzEwMzNcaGlj aFxmMVxkYmNoXGYxXGxvY2 llTvMlO2HzPPZqDBGnvXDa L7bbHRS6vO7iq3tbi2XwpK MaGoJrt9zxvuDhWGVfhHEs pyKurKVmENGny9EwQCSoOT PpRMUEOv8XNVDpkSMmI7d7 zKRGNW9qpYXwFOCyOEVhX1 NoHbDJsnJat7M7YVOrrTKq QRCKXNBmtEPsV3c9eIogBU nvMct7HoMijOecjT9wToOb HcUgDYypOP8bMVSeM2kwqP MvLNEgNGHvP3eaFyBjpO6v aFxmMVxjZjJcZnMyMFxsdH GmcTfdCFT3zS== Clinical Information (test code = 7997636628) Kelsey Harrell is a 38 year old female1. GASTRIC BX EVAL H. PYLORI2. DISTAL ESOPHAGEAL BX EVAL EOE3. PROXIMAL ESOPHAGEAL BX EVAL EOE Gross Description (test code = 4944984147) x4ujmELlJNZukQYLPDX1AK RmLG4gsCghqKb5kPfuTPSl rxF9rWUlPWoks5ucULB7g5 eaxqEHEegkNEKsQP0hFDpd JGNeDA7rWcOvCKOaZzUlXX BhcGVydzEyMjQwXHBhcGVy lCK0CALuXZ1xzfiwLPpjZP tfPUKakjC1TSLqsWSqB3Yu CSUyLP7oukhwLKK9GQYJDz ukJs8vyLHthUenFdVgZnGt YXJzZXQwXGZuaWwgQXJpYW c6uV9QIjhpWXH8MAIGYsmy XsxpxKyst9UnfLCfEKKeNW xcaWQgNTEwMDAgXFxkYiBP ApCxZyZ7JTDmRCwaHlO1ZK f8MOYLDHRqOcq4TND5KEY2 ARu5PZKcHU7wXBcjeQTqKZ seAubdLZmqF147NFywATKi A0HbI5OoYGqlToKtUFldSJ YgLBKmZZrxSEIdO1OSQOQt RDp3Vcx0YtEmWIu9KMemB2 HAOEUzKBDdRDR5ReQ3BnM1 RKs7BWSPCh8vEVq0ZZG4Pm K8BqS2RXddEzUbSGIePnIm OTSrHOIeAWohmUKiCL8jyU ecMRDpAP4OPYHeORtdYYTh VlBbK2TTE8cXYZ1zLRqtcC JjaFxmczIyXHBhciANClxw VHNpZD6PBHEdLIzkVKy2no AuTMYjKvMdLLVhE72az5NH b2RsPF3HPUe2reQzudiioM 9eJUDgxwLeo9UdVPyhfKdz SPWjFuZeYYgLwOMslN3ibt NEUMikLHNaV3UlopFgMSxs LMTdpa1koYdeFOazBxXcSZ Rus0w1bRC0uYGnvCL6oGYk rEneXS2ydCDwPPBIUQ07rM UbddEnY9FdgRMoDuFXLAAb kaFgCWoaOPQ0hV5ncNRzMQ 6eUTExgxOxj6PoQP1zIXFv bEJiLOWmlthddPTaTSj5fQ YvNIIfNpSbtUlhu2VdWZAg VPniPB46byWdYF7jYJfrLV 0oHFcxCC5xLOUdREShNTIh LjYgeCAwLjIgeCAwLjEgY2 1rOtDRrDKzs3SfU6soYW2n aXMgZmlsdGVyZWQgdGhyb3 EfaSPvGFLeg9JjtHTmMGfk BL9kUEB5Bv9okRIqIJBfoh I7l7MkEZwaSZSoOk5EBDLo eCQMVHO6JK1oIZfhWDJbR1 VrS6TydiF5NWEatuMLIjdb UhznlGvaq5UnsCRyBAXlWT xcaWQgNTEwMDIgXFxkYiBP XcTzTyK9FCLiPEtoYqX4IM f0KNRDSeDfTjZtAqC3OtVo NNhlRNo2CMm2KKlIEmTwRV e2Tgp0FbO6AKF4ICN9FPht lBVsXYlyq2RkVgNxCJQnTV ilhfA5TWWtdsGaj4TkPJOf ZMIrI5jgSlZoWJIAIwkjhh IwIFNQRUNJTUVOIEJcZnMy MlxwYXIgDQpccGFyZCANCl xwbGFpblxsdHJjaFxmczIy HURtnUYMSHO6KL1mWAAUDy zeyACfVTPgyDxtVEltuI5c RYLiQgTbFMPoC0xmLqDdKF IaOyAyOXRcH7kyNAHdWX7D E3GfO7iqFF5bXwIhmvWlCU WmzPVxDJEythYlu0LgVTko biBsYWJlbGVkIHdpdGggdG gbGAPupEghwvTkryHmYL4p SRHVKJDpnQ4tLYFhYyQqj6 OwlLAhq73amUDePSTgJYDK LUV0ODodXI7TPtFnomAeV3 1ho6vvgSVrn3QsuUOrzHrj qYKvkNFfXHQehuhje3BgjJ RdDZ6nhUXhCF17BGdkexMv rAxlkwJls9N8AVStk4X3TT BmcmFnbWVudHMgKHJhbmdp bmcgZnJvbSBsZXNzIHRoYW 6iAJ7yPKDeKFDlCyKtxNCl agEqmnCthSTteEGxgI5oij Gfn72pOXIkQMN6CSMwOBT1 IKWzTDFvqISsuzEkA7qxVB gnxKMcGqLFrUKgu2LlC6ke RE2tiTYgZeyczZHyGBFgiM hrl7XliGLgSAAly2UyyNJk BMtyIS6lYKE6Yf8fuNLuYT PqzeQ6v2JuTZatSQKbBj1B MSXyiIBKKLN2WL0lLZeyOE HsK5BmV7RdviB1DYTptfFH CqheRaklvHtec3QcnNVnIX NnIFxcaWQgNTEwMDIgXFxk CvMQDkXaEmJ3CVHqNEolIo Y5ELn2BUKMZoYkLcIeZhJ8 SlWzRsKbYBj8PZn5OQuQXe XlURh9Ugk2ENBlYKF0VGZ1 LJodxVAsZVxix8CkZiFjVS CyBOjukgT7SKQlayKwe7Cs RLRmWCAgB1atFrJyNSNQVe xmczIwIFNQRUNJTUVOIENc ZnMyMlxwYXIgDQpccGFyZC ANClxwbGFpblxsdHJjaFxm kpLbDENmqLDXWWI0ZY6oOJ ANClxsdHJwYXJcbGluMFxy iA3hHLJuXcBsEUUjM1nmQh WuMV0JT8KjH2ecDE2fZdOx cyByZWNlaXZlZCBpbiBmb3 JtYWxpbiBsYWJlbGVkIHdp dGggdGhlIHBhdGllbnQncy OzLW0tKSFSFPJayG9iDZRe BeAlo5tzzWXaJGByt6QvJA lsDXrhUwziVXRacCPSK9Rq WUWnINTaj18frYS7naYdQf AySIOvvw1lnE8tACDzdRc4 ypNox4n0I1WzyBRxxvXqT4 QdSHPfy19jwMF4mREctZZi RrRgN42vnxFkOVpaJY6faT 3kLSGef15aHG2rIRUuEZWa MyBjbSBpbiBncmVhdGVzdC PnnJ8qtpPrd19dPBWhLUA7 KYZmGFO8LPIrEZLfnVKsvv EqY9ghVTretPHbKuLPtOIr a0MrN6fpWF9toNBxKjxioB UvLHYhdJsdc6TwcOJhUAHo v7QquHXvQExgZK8gLIM5Ux 3dlSZhGMNbldI8n0OdSWfn YFUjAknsMABnAZwoa3VdMI JqyWHXn9AoVG7UVQZbegMF YcyuSDVsEPMbiXUAc1GkOC RGNv6bsneaQDVyAYP6k8Vz MRZGQYtAO7HJDX7HWVOwdX PRYZE6EK9jSYyfACIaR7Qm A0SzlgR6z5hzhXcuv7LldU GeVB6ymRSqCT8KPREbnyEd DQp9 Disclaimer (test code = [id number]) z4thfORwADMeh7ugOZTzbI FuZzEwMzNcZnRuYmpcdWMx VYwlksTiZGsic1EtB0VaNm AwMFxhbnNpXGRlZmxhbmcx CVDkHCD1zhOvIRTyOQjfJV UhSVclNe5okFTreOsxYiFr VGIbs4osgiEGWWhtReQoS9 51NQEmHXesf1jbc5NfBEBl rGMxe9V6UKMMcpuzyQf6aF dhE48qi6X3RriiP0mtUMNk CQHfK1XjTN8rJOAvNku4ZG R0ATU6DWIfWMMlB0WeCO5h NNVtvACtYIl1r7qriUgkVK JvKJS6v6yaQNqomkQbRY1l eq7qkOh6c1heidVuOGVmSE CfhBHWFYCxB2XlvEcdRq9v qDp4tRkqJcqsAXU2Yzs2MS 3mtv90grc4eIolORHewkad WxS1DMdbINDijzppODs1AJ daNMNxtWR1EFVguVJnL6Dr OCLmCR0fdax8LFG7SBffDH RwLkL1ECAwiAHmSTMjbHct QItkl836PRQ0YoPuRW3lH2 Bux2C7xU4glXCgEWVnePEb IhDcNJWyty1vyIMyQCmzd0 CrDNO8xxR2gBAxmREyZPXl DM36Kivoj0DqMnufn2CjQ8 2lsNS6CQolf5vvIX8aNdW6 adCzNIunq5unbJ0oJhH8GG ptWW0uHU0jDXNlvH1kzrdz XHBnYnJkcmhlYWRccGdicm TwXe2nkWleKYV4KAsxS8rj gK4iNjX0QMwxD7bpwQ7jRU a2OXugmCG1QMNegC1lMW4l sftkm0suVGscZMfwSAMvcz J7wcH7TUJqzLPmE4NinE8t BFQsCE4ltycaj8qgXHR5CO ecAHDzMSA0AoZxGSAar8Ns qnm5JoUxg3MjtVFiJRjiC7 7aw090IMGitdWtQ0haeXEr qmrjgPGdtxbtODdviyJ7GC RjpbQiv0OrLUUeCHU3SSre ORxsrQUiICKelAifi1sqS1 RscGFyXHBsYWluXGYxXGZz MjBcbGFuZzEwMzNcaGljaF gvXFddZmSdZYQjTRduX3yy BxWcP1GyRTNbMzLneBSrZ6 ggVGhpcyByZXBvcnQgbWF5 GJhvW8b1CITqkqVhpDr8mq WyIjUyWMVqNZL8FPyaiUYe HSXkn7GwpuuhfFPiLv6efR GtDCMpkG9yODPrJHKhUWod RV8wkJp9YSPSoRZsoDLlBg QOYRDzYE90ntUmNTJEkxlz a8P8UIljQMUtu2CnfJApC4 dgs8TcZAPpk39mVM6ei8B9 k8tjIQU4BD0hl7CnNKFzqU UqzMYqBWIdw3Rknxzsz0Ez HCHxfxDkd8AcHOWmwiNpmS LcYMTbapGfxl4rcaFmFZXk SHBpL3AeoxltyNbydwSqGA Yieq5nuiQrPUE9HQRKQTWs KADic6CanW7pyMOSJBD8sF Esmr6snoDXdVHfTMJdck38 EKLlSL4oT0rwMMRwZMUexa ZadUInr8SkONJlqNK8hWAo GF6KMxVHf38xIUZiGZQGwh KfSXSbiQxsiHX5thN8uE6a IChGREEpLlx+IFRoZSBGRE DjXO2yytCey9NrbrEnxHzi AUOrkMVlm8HbwAMko2NqaZ mdv4ZprONvrWDmTR7wOYBi clxwYXIgVVRNQiBMYWJvcm N3j1UqDLNvZAFxQWN3vEjp hor8TNWhwV6jZDTxF1eoka deOBreEUBry4PioN2nfAZD gXLqn7TxcFXihYMUpHCoSW 3gkiLzGLrSYBfSQAJ8ubHn NQGpy2BcERgbP0dqK27beJ olmCm2iGK7SEY7aU2eWtd+ IFxwYXJccGFyIEFwcHJvcH LvPBZidXoabvNeK8FeemBp eO0vwGTsobKkPZ3zGC7jN8 A6aVQfCLUcseJct2ebGDxt dmUgYmVlbiByZXZpZXdlZC Lhz3AwCVmbXCO4TEkdhcOq bmNsdWRpbmcgSCZFLCBTcG FgjOGuJKA8GVjhaxZlomNq XD4gzI6ciVdbgE3xnYHdzR O8kzjcIDPnCIImdKxxQMFt JR5vzGcsmJ8nAjAnNbWvUS ecBZ5xDQAzZ2pqmAOpDOLb LRAyA8qaXjGpnX5spKidML xjZjJcZnMyMFxwYXJccGFy XHBsYWluXGYxXGZzMjBcbG FuZzEwMzNcaGljaFxmMVxk OeZzGPPfWSnxR0osNkDbX2 AmSZOnDyMboUPlI4hbQEtv YSZ7SWYeWU2muZWkMK71eU Wje2gsPDhzdKhwsj1eB36u gLDeQWdkiPrnGFQpw38xm4 CdBRPuckZqbd9tVEBwfsO9 xN7zQGRrqTxcILWbtJHjFM Fgo3VjMTdprTEiikRnEVou PNLyCRZzlZEnwqC3znPfus RfrlGxRGKmkNpzRBEim1Lu RMHjLIgeb1Dtkv0nlZMhFK TjbuNOyKummRHmyH6lU8Ss MYUxMWAnay2rUYMviI3tGV gox1WxcnqrYEUyQINeZZZf ugNmcu9dOCKmtMDUTT6AUK xexZGcv8AogeTpC4fTQTX6 NUQwNjYwMjgxKSBleGNlcH IqRTYrti48RXPcfK6sqNru ZLZhaS0fnT6bpSfixN7wJu SfWgRnQXciNU5aDHMvH3jm kSHrAAOgOZDlR2aeFsJkpZ 9jaFxmMVxjZjJcZnMyMFxw YXJ9fQ== Embedded Images (test code = [id number]) [facility] GLUCOSE (AUTOMATED)2023-04-09 13:04:56* Test Item Value Reference Range Interpretation Comme nts POCT GLU (test code = 3606283032) 240 mg/dL 70-110 H Lab Interpretation (test cod e = 94157-3) Abnormal [facility] GLUCOSE (AUTOMATED)2023-04-09 13:04:56* Test Item Value Reference Range Interpretation Comme nts POCT GLU (test code = 4630825044) 240 mg/dL 70-110 H Lab Interpretation (test cod e = 37853-9) Abnormal [facility] [id number] 00:00:00* Test Item Value Reference Range Interpretation Comme nts POCT PREG (test code = 1605) Negative On board controls acceptable with C Line (test code = 3574) Yes POCT PREG LOT # (test code = 3575) POCT PREG TEST DATE ( test code = 3576) [facility] [id number] 00:00:00* Test Item Value Reference Range Interpretation Comme nts POCT PREG (test code = 1605) Negative On board controls acceptable with C Line (test code = 3574) Yes POCT PREG LOT # (test code = 3575) POCT PREG TEST DATE ( test code = 3576) [facility] [id number] 05:21:47 * Test Item Value Reference Range Interpretation Comments Anticardiolipin Antibody IgG (test code = 4599292570) 11.9 See_Comment H [Automated message] The system which generated this result transmitted reference range: 0.0 - 10.0 GPL. The reference range was not used to interpret this result as normal/abnormal . Anticardiolipin Antibody IgM (test code = 9809958932) 1.8 See_Comment [Automated message] The system which generated this result transmitted reference range: 0.0 - 10.0 MPL. The reference range was not used to interpret this result as normal/abnormal . Anticardiolipin Antibody IgA (test code = 7440632877) 1.5 See_Comment [Automated message] The system which generated this result transmitted reference range: 0.0 - 15.0 APL. The reference range was not used to interpret this result as normal/abnormal . WILLIAMS (test code = WILLIAMS) Interpretation: ? IgG ?IgM ?IgANegative Values: ? <10.0 [...] Thromb Haemost 2006; 4: 2210-4 Lab Interpretation (test code = 82434-5) [facility]normal [facility] [id number] 05:21:47 * Test Item Value Reference Range Interpretation Comments Anticardiolipin Antibody IgG (test code = 6918949366) 11.9 See_Comment H [Automated message] The system which generated this result transmitted reference range: 0.0 - 10.0 GPL. The reference range was not used to interpret this result as normal/abnormal . Anticardiolipin Antibody IgM (test code = 2209776904) 1.8 See_Comment [Automated message] The system which generated this result transmitted reference range: 0.0 - 10.0 MPL. The reference range was not used to interpret this result as normal/abnormal . Anticardiolipin Antibody IgA (test code = 3696236456) 1.5 See_Comment [Automated message] The system which generated this result transmitted reference range: 0.0 - 15.0 APL. The reference range was not used to interpret this result as normal/abnormal . WILLIAMS (test code = WILLIAMS) Interpretation: ? IgG ?IgM ?IgANegative Values: ? <10.0 [...] Thromb Haemost 2006; 4: 2210-4 Lab Interpretation (test code = 10952-9) [facility]normal [facility] GLYCOPROTEIN I [id number] 05:21:31* Test Item Value Reference Range Interpretation Comments Anti-B2 Glycoprotein 1 IgG (test code = 9081914662) 2.8 See_Comment [Automated message] The system which generated this result transmitted reference range: 0.0 - 20.0 SGU. The reference range was not used to interpret this result as normal/abnormal. Anti-B2 Glycoprotein 1 IgM (test code = 3938656818) 0.6 See_Comment [Automated message] The system which generated this result transmitted reference range: 0.0 - 20.0 SMU. The reference range was not used to interpret this result as normal/abnormal. Anti-B2 Glycoprotein 1 IgA (test code = 7497510854) 2.6 See_Comment [Automated message] The system which generated this result transmitted reference range: 0.0 - 20.0 JOSE. The reference range was not used to interpret this result as normal/abnormal. WILLIAMS (test code = WILLIAMS) INTERPRETATION:Values over 20 SGU, SMU, or JOSE units are considered positive. NOTE:A positive test for anti-B2 Glycoprotein I antibodies may indicate the presence of Antiphospholipid Syndrome. ?Anti-B2 Glycoprotein I antibodies have been associated with thrombosis, recurrent losses and/or thrombocytopenia. TEST PERFORMED AT:[facility]. [address] [place] [address], [address] [place] [address] Lab Interpretation (test code = 89236-7) Normal [facility] GLYCOPROTEIN I [id number] 05:21:31* Test Item Value Reference Range Interpretation Comments Anti-B2 Glycoprotein 1 IgG (test code = 9426695906) 2.8 See_Comment [Automated message] The system which generated this result transmitted reference range: 0.0 - 20.0 SGU. The reference range was not used to interpret this result as normal/abnormal. Anti-B2 Glycoprotein 1 IgM (test code = 5142778986) 0.6 See_Comment [Automated message] The system which generated this result transmitted reference range: 0.0 - 20.0 SMU. The reference range was not used to interpret this result as normal/abnormal. Anti-B2 Glycoprotein 1 IgA (test code = 4117491581) 2.6 See_Comment [Automated message] The system which generated this result transmitted reference range: 0.0 - 20.0 JOSE. The reference range was not used to interpret this result as normal/abnormal. WILLIAMS (test code = WILLIAMS) INTERPRETATION:Values over 20 SGU, SMU, or JOSE units are considered positive. NOTE:A positive test for anti-B2 Glycoprotein I antibodies may indicate the presence of Antiphospholipid Syndrome. ?Anti-B2 Glycoprotein I antibodies have been associated with thrombosis, recurrent losses and/or thrombocytopenia. TEST PERFORMED AT:[facility]. [address] [place] [address] [place] [address] Lab Interpretation (test code = 66364-9) Normal [facility] GLUCOSE (AUTOMATED)2022-12-11 15:26:47* Test Item Value Reference Range Interpretation Comme [facility] POCT GLU (test code = 9139115587) 91 mg/dL 70-110 Lab Interpretation (test cod e = 28858-2) Normal [facility] GLUCOSE (AUTOMATED)2022-12-11 15:26:47* Test Item Value Reference Range Interpretation Comme [facility] POCT GLU (test code = 8969158853) 91 mg/dL 70-110 Lab Interpretation (test cod e = 87115-0) Normal [facility] [id number] 14:48:00* Test Item Value Reference Range Interpretation Comme nts POCT PREG (test code = 1605) Negative On board controls acceptable with C Line (test code = 3574) Yes POCT PREG LOT # (test code = 3575) POCT PREG TEST DATE ( test code = 3576) Lab Interpretation (test cod e = 25552-5) Normal [facility] [id number] 14:48:00* Test Item Value Reference Range Interpretation Comme nts POCT PREG (test code = 1605) Negative On board controls acceptable with C Line (test code = 3574) Yes POCT PREG LOT # (test code = 3575) POCT PREG TEST DATE ( test code = 3576) Lab Interpretation (test cod e = 46323-9) Normal [facility] SARS-COV-2 ANTIGEN (BINAX NOW)2022-11-29 17:40:00* Test Item Value Reference Range Interpretation Comme nts POCT SARS-COV-2 ANTIGEN (marie t code = 43453-2) Not Detected Not Detected On board controls acceptable with C Line (test code = 3574) Yes [facility] SARS-COV-2 ANTIGEN (BINAX NOW)2022-11-29 17:40:00* Test Item Value Reference Range Interpretation Comme nts POCT SARS-COV-2 ANTIGEN (marie t code = 44116-5) Not Detected Not Detected On board controls acceptable with C Line (test code = 3574) Yes [facility] MOLECULAR [id number] 17:14:55* Test Item Value Reference Range Interpretation Comme nts POCT Molecular Strep (test c ode = 05663-5) Negative Negative Lab Interpretation (test cod e = 58865-3) Normal [facility] MOLECULAR [id number] 17:14:55* Test Item Value Reference Range Interpretation Comme nts POCT Molecular Strep (test c ode = 79544-1) Negative Negative Lab Interpretation (test cod e = 29433-5) Normal [facility] GLUCOSE (AUTOMATED)2022-09-15 16:40:41* Test Item Value Reference Range Interpretation Comme nts POCT GLU (test code = 5510471151) 133 mg/dL 70-110 H Lab Interpretation (test cod e = 49362-3) Abnormal [facility] GLUCOSE (AUTOMATED)2022-09-15 16:40:41* Test Item Value Reference Range Interpretation Comme nts POCT GLU (test code = 9436647000) 133 mg/dL 70-110 H Lab Interpretation (test cod e = 84962-4) Abnormal [facility] [id number] 16:35:00* Test Item Value Reference Range Interpretation Comme nts POCT PREG (test code = 1605) Negative On board controls acceptable with C Line (test code = 3574) Yes POCT PREG LOT # (test code = 3575) POCT PREG TEST DATE ( test code = 3576) Lab Interpretation (test cod e = 82987-5) Normal [facility] [id number] 16:35:00* Test Item Value Reference Range Interpretation Comme nts POCT PREG (test code = 1605) Negative On board controls acceptable with C Line (test code = 3574) Yes POCT PREG LOT # (test code = 3575) POCT PREG TEST DATE ( test code = 3576) Lab Interpretation (test cod e = 02491-8) [facility]; SPECIAL COAGULATION [id number] 22:21:22Related Clinical History The patient is 37 years old female who has been followed by pain management for radicular pain. She recently had sacroiliac injections which did not help with her symptoms. Me dications: Not currently taking any antiplatelet or anticoagulant [...] IgA? <15.0 APL? 0.1? 09/05/2022 4:21 PM [facility] SERVICESCo[facility] DMT interpretation This patient has a positive test in the antiphospholipid antibody panel. ?To qualify for antiphospholipid syndrome, a patient must have a positive test inthe antiphospholipid antibody panel at least twice and at least 12 weeks apart. ?Therefore, to meetthe laboratory criteria for antiphospholipid syndrome, a repeat study must be performed 12 weeks ormore from the time of the first study. ?Importantly, antiphospholipid syndrome also requires that the patient meet a clinical criterion, which includes thrombosis for men and women, or complications in women. 09/05/2022 4:21 PM [facility] SERVICESRecommendations If clinically indicated, repeat the antiphospholipid antibody panel in 12 weeks, to evaluate the patient for antiphospholipid syndrome. ? 09/05/2022 4:21 PM [facility] Send[facility]- [id number] Lupus Anticoagulant Reflexive Pjfad5556-55-14 14:40:11* Test Item Value Reference Range Interpretation Comme nts Miscellaneous Test (test code = 9731269587) See scanned report Performing Lab (test code = 1013247253) [facility] [id number] 03:44:30 * Test Item Value Reference Range Interpretation Comments Anticardiolipin Antibody IgG (test code = 6725170903) 20.9 See_Comment H [Automated message] The system which generated this result transmitted reference range: 0.0 - 10.0 GPL. The reference range was not used to interpret this result as normal/abnormal . Anticardiolipin Antibody IgM (test code = 4233835568) 1.5 See_Comment [Automated message] The system which generated this result transmitted reference range: 0.0 - 10.0 MPL. The reference range was not used to interpret this result as normal/abnormal . Anticardiolipin Antibody IgA (test code = 0468545159) 0.1 See_Comment [Automated message] The system which generated this result transmitted reference range: 0.0 - 15.0 APL. The reference range was not used to interpret this result as normal/abnormal . WILLIAMS (test code = WILLIAMS) Interpretation: ? IgG ?IgM ?IgANegative Values: ? <10.0 [...] Thromb Haemost 2006; 4: 2210-4 Lab Interpretation (test code = 50373-8) Abnormal [facility] [id number] 03:44:30 * Test Item Value Reference Range Interpretation Comments Anticardiolipin Antibody IgG (test code = 1601971923) See_Comment H [Automated message] The system which generated this result transmitted reference range: 0.0 - 10.0 GPL. The reference range was not used to interpret this result as normal/abnormal . Anticardiolipin Antibody IgM (test code = 8871763843) See_Comment [Automated message] The system which generated this result transmitted reference range: 0.0 - 10.0 MPL. The reference range was not used to interpret this result as normal/abnormal . Anticardiolipin Antibody IgA (test code = 2225694588) See_Comment [Automated message] The system which generated this result transmitted reference range: 0.0 - 15.0 APL. The reference range was not used to interpret this result as normal/abnormal . WILLIAMS (test code = WILLIAMS) Interpretation: ? IgG ?IgM ?IgANegative Values: ? <10.0 [...] Thromb Haemost 2006; 4: 2210-4 Lab Interpretation (test code = 81380-2) [facility]normal [facility] GLYCOPROTEIN I [id number] 03:40:36* Test Item Value Reference Range Interpretation Comments Anti-B2 Glycoprotein 1 IgG (test code = 4498130281) 3.0 See_Comment [Automated message] The system which generated this result transmitted reference range: 0.0 - 20.0 SGU. The reference range was not used to interpret this result as normal/abnormal. Anti-B2 Glycoprotein 1 IgM (test code = 6897334937) 1.5 See_Comment [Automated message] The system which generated this result transmitted reference range: 0.0 - 20.0 SMU. The reference range was not used to interpret this result as normal/abnormal. Anti-B2 Glycoprotein 1 IgA (test code = 7235018509) 5.1 See_Comment [Automated message] The system which generated this result transmitted reference range: 0.0 - 20.0 JOSE. The reference range was not used to interpret this result as normal/abnormal. WILLIAMS (test code = WILLIAMS) INTERPRETATION:Values over 20 SGU, SMU, or JOSE units are considered positive. NOTE:A positive test for anti-B2 Glycoprotein I antibodies may indicate the presence of Antiphospholipid Syndrome. ?Anti-B2 Glycoprotein I antibodies have been associated with thrombosis, recurrent losses and/or thrombocytopenia. TEST PERFORMED AT:[facility]. [address] [place] [address].[place] [address] Lab Interpretation (test code = 97249-8) Normal [facility] GLYCOPROTEIN I [id number] 03:40:36* Test Item Value Reference Range Interpretation Comments Anti-B2 Glycoprotein 1 IgG (test code = 8172355030) See_Comment [Automated message] The system which generated this result transmitted reference range: 0.0 - 20.0 SGU. The reference range was not used to interpret this result as normal/abnormal. Anti-B2 Glycoprotein 1 IgM (test code = 1580787926) See_Comment [Automated message] The system which generated this result transmitted reference range: 0.0 - 20.0 SMU. The reference range was not used to interpret this result as normal/abnormal. Anti-B2 Glycoprotein 1 IgA (test code = 4543138563) See_Comment [Automated message] The system which generated this result transmitted reference range: 0.0 - 20.0 JOSE. The reference range was not used to interpret this result as normal/abnormal. WILLIAMS (test code = WILLIAMS) INTERPRETATION:Values over 20 SGU, SMU, or JOSE units are considered positive. NOTE:A positive test for anti-B2 Glycoprotein I antibodies may indicate the presence of Antiphospholipid Syndrome. ?Anti-B2 Glycoprotein I antibodies have been associated with thrombosis, recurrent losses and/or thrombocytopenia. TEST PERFORMED AT:[facility]. [address] [place] [address] Lab Interpretation (test code = 23903-1) Normal [facility] [id number] 17:19:00* Test Item Value Reference Range Interpretation Comme nts POCT PREG (test code = 1605) Negative On board controls acceptable with C Line (test code = 3574) Yes POCT PREG LOT # (test code = 3575) POCT PREG TEST DATE ( test code = 3576) [facility] [id number] 17:19:00* Test Item Value Reference Range Interpretation Comme nts POCT PREG (test code = 1605) Negative On board controls acceptable with C Line (test code = 3574) Yes POCT PREG LOT # (test code = 3575) POCT PREG TEST DATE ( test code = 3576) [facility] [id number] 20:18:00* Test Item Value Reference Range Interpretation Comme nts POCT PREG (test code = 1605) Negative On board controls acceptable with C Line (test code = 3574) Yes POCT PREG LOT # (test code = 3575) POCT PREG TEST DATE ( test code = 3576) Lab Interpretation (test cod e = 60187-6) Normal [facility] [id number] 20:18:00* Test Item Value Reference Range Interpretation Comme nts POCT PREG (test code = 1605) Negative On board controls acceptable with C Line (test code = 3574) Yes POCT PREG LOT # (test code = 3575) POCT PREG TEST DATE ( test code = 3576) Lab Interpretation (test cod e = 91381-8) Normal [facility] [id number] 17:01:00* Test Item Value Reference Range Interpretation Comme nts POCT PREG (test code = 1605) Negative On board controls acceptable with C Line (test code = 3574) Yes POCT PREG LOT # (test code = 3575) POCT PREG TEST DATE ( test code = 3576) [facility] [id number] 17:01:00* Test Item Value Reference Range Interpretation Comme nts POCT PREG (test code = 1605) Negative On board controls acceptable with C Line (test code = 3574) Yes POCT PREG LOT # (test code = 3575) POCT PREG TEST DATE ( test code = 3576) [facility] History and Physical Notes Date/Time Note Provider Source 2023-04-09 08:44:32 [id number] FesIe1RKxfEHcRmpfwm//c e76e5aiZHTlHoaLlKXy1mF5720-73-10N91:44:32F ormatting of this note is different from the original.Endoscopy H & PAge: 38 year old Sex: female ASA Class: IIIIndication: chronic nausea, heartburn, dysphagia, Kelsey Harrell is a 38 year old female with [...] N/A 05/28/2020 Surgeon: Norbert Diaz MD; Location: [facility] COLONOSCOPY 05/28/2020 COLPOSCOPY HEMORRHOIDECTOMY N/A 11/14/2021 Surgeon: Azalia Michel MD; Location: [facility] SACROILIAC JOINT INJECTION Right 10/18/2020 Surgeon: [facility] Morley MD; Location: [facility] No current facility-administered medications for this encounter. 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 Social Determinants of Health Financial Resource Strain: [...] 0 min Stress: Stress Concern Present (03/06/2023) [place] [facility] [employer] - Occupational Stress Questionnaire Feeling of Stress : To some extent Social Connections: Moderately Isolated (03/06/2023) Social Connection and Isolation Panel [NHANES] Frequency of Communication with Friends and Family: Twice a week Frequency of Social Gatherings with Friends and Family: Once a week Attends Jain Services: Never Active Member of Clubs or Organizations: No Attends Club or Organization Meetings: Never Marital Status: Living with partner Housing Stability: Unknown (03/06/2023) Housing Stability Vital Sign Unable to Pay for Housing in the Last Year: No Unstable Housing in the Last Year: No Physical Exam:Mental Status: alert, oriented r3Ewzbotc: bowel sounds present Spleen Tip: non-palpableHepatomegaly: noMass: not presentTenderness: noImpression and Plan: Kelsey Harrell is a 38 year old female with [...] complete the procedure, cardiovascular complications such as OH, stroke, arrhythmia, and . Informed consent obtained/verified. Education provided to the patient about the procedure. Norbert Diaz [facility] Professor of Internal MedicineDivision of Gastroenterology and Hepatology 84698-6Hvliczr and physical rvuyGP7341-93-74H71:46:40History and physical noteTXT1.2.840.653930.1.13.104.2.7.2.12079 9|[id number] for patient mxsr27952-2Vghytwi and physical note[address] PjkdTncmdpmhbNogfutsmjYOSZ7443274484YOHQCH BUTERWANCLMSEFYC2657-87-68M78:46:401.2.840 .686369.1.72.3.15|1.2.840.296204.1.13.104. 2.7.2.727879_[id number] [facility] Notes Date/Time Note Provider Source 2023-11-07 15:27:34 YLCabOleRHtyPUfbJsnw1mtguBGw/OOlJiM u/N/4cNSmM2+bVYykr7kdrRqKZsab2408-1 11-06T15:27:34 This medication was increased to 12.5mg dose. Disregard refill request 74014-2Fvhtepjwu encounter PfdvWW6827-73-51G91:28:25Telephone encounter NoteTXT1.2.840.960491.1.13.104.2.7. 2.252664|[id number] for patient bnrl38023-1CjumEGVFPAMQCBLOtxufiahj C-CDA narrative [id number] D [place] [address] Qd[id number] 4KEBPJSRHFWFEKTXDUWJLQF5025-69-42C0 5:28:251.2.840.404176.1.72.3.15|1.2 .840.816312.1.13.104.2.7.2.727879_2 [id number] Melissa Carlos PROCESS TRAINER [facility] 2023-11-07 14:16:10 /GpQu2boOppp/HXT1IRnR+IZG1JkDvD55Hb wEAcsstesCaS9I7HaCIZXaeqCK4Wd6807-1 4:16:10 Images from the original note were not included. 70571-8Efwvnkiqn encounter AzeaDA4682-13-23X43:50:42Telephone encounter NoteTXT1.2.840.202549.1.13.104.2.7. 2.942429|[id number] for patient dien02092-0BrzvNANEABZBETXGoqjbaelf C-CDA narrative ikjs149772935Yenxjo M [id number] 4HQURXYQDOCSAVRVUKUBYYO0146-90-38Q0 4:50:421.2.840.757196.1.72.3.15|1.2 .840.655613.1.13.104.2.7.2.727879_2 [id number] Fern Schofield [facility] 2023-11-06 12:09:54 EQ1uPeWXl260Vw3nDldgqBah3+8oOHXTt7n EgVna4GvvVdYSdcoXm6OedNxNxml85567-2 2:09:54 Pt has been contacted and scheduled follow up appointment for 12/12/2023.Encounter closed 08129-3Eniexeibw encounter KladAE7919-84-37D82:10:32Telephone encounter NoteTXT1.2.840.236368.1.13.104.2.7. 2.100735|[id number] for patient qtnu32571-7BzqhWZCHKGIBOBMDpqvdcejp C-CDA narrative pxqe54520161Cqcxbtfm M [id number] 2EYHZVERWDECXZQSUHOYZRI9327-48-92A0 2:10:321.2.840.777040.1.72.3.15|1.2 .840.926419.1.13.104.2.7.2.727879_2 [id number] Tammy Martinez [facility] 2023-11-06 10:55:56 bOIb5xlBqONw0eJ7dl4rc6927KhCjINiB7/ 5LVg0NB+HLookMHw1E8jjjnBzNgj04550-6 11-05T10:55:56 Please schedule follow up appointment 70438-1Xwrpsvlhu encounter UzgrBO4499-88-58F19:55:56Telephone encounter NoteTXT1.2.840.929375.1.13.104.2.7. 2.668405|[id number] for patient ujer90701-6QmpmFYLWFHFBUDZDnuwmhrut C-CDA narrative text[id number] 4MSPSFEZRIKNSLHPTTCOJSB7524-19-93J8 0:55:561.2.840.354315.1.72.3.15|1.2 .840.598831.1.13.104.2.7.2.727879_2 [id number] [facility] 2023-11-05 11:15:02 XcbhlnqsZTsjBfHClscHwVtkEGBVr5w5d5I Z6wxxigNQfomLFMWmF/HeKvho9MRK3095-7 1:15:02 Please review and sign if appropriate:Last office visit: 06/06/23Nex office visit: not scheduledRequested PrescriptionsPending Prescriptions Disp RefillsESCITALOPRAM OXALATE 20 mg tablet [Pharmacy Med Name: Escitalopram Oxalate 20 MG Oral Tablet] 90 tablet 0Sig: TAKE 1 TABLET BY MOUTH IN THE MORNINGPROMETHAZINE 12.5 mg tablet [Pharmacy Med Name: Promethazine HCl 12.5 MG Oral Tablet] 30 tablet 0Sig: TAKE 2 TABLETS BY MOUTH EVERY 6 HOURS NEEDED FOR NAUSEA AND VOMITINGMECLIZINE 25 mg tablet [Pharmacy Med Name: Meclizine HCl 25 MG Oral Tablet] 20 tablet 0Sig: TAKE 1 TABLET BY MOUTH EVERY 8 HOURS NEEDEDNotes:Chronic nausea- meclizine 25 mg tabletSeveral times a week she takes meclizine and promethazine at the same time for nauseaPersistent depressive disorderChronicUncontrolledTo see psychiatry 37097-2Veqnsjuoz encounter HwfzOU5795-03-57C95:18:06Telephone encounter NoteTXT1.2.840.134376.1.13.104.2.7. 2.621105|[id number] for patient zudb67634-7VxebTPEDRPORNDZHaabusuwm C-CDA narrative eybr945199560Uolvm Flores [address] JowkGyvaoprugObxectyuwIAVB146406880 6LZSCDNTOPKBYZIYKEZIRZQ6444-01-10P4 1:18:061.2.840.337922.1.72.3.15|1.2 .840.613397.1.13.104.2.7.2.727879_2 [id number] Rachele Huang PROCESS TRAINER [facility] 2023-10-15 15:30:00 zdILgPDtwX0zmQ8UzB7vF491HtZR5y/0oxr 9cApFopLkOlmsWmYLne4ZtcN8CLNy9374-2 10-14T15:30:00 Images from the original note were not included.Venipuncture collection performed by clean technique on the left anticubitus. Total of 2 attempts were made. Slight pressure and a bandage/dressing were applied to the site(s). The patient experienced no complications. The following specimens were processed according to instructions and sent to [facility] laboratories per lab order on 10/15/2023:LT BLUESST 1REDLAVPPTDK GREEN (LiHep)DK GREEN (SodH)GRAYDK BLUE (K2)DK BLUE (S)ACDBlood CultureNIPT/NTD 83072-9Crhna HlpsTJ2383-99-50B42:31:35Nurse NoteTXT1.2.840.273400.1.13.104.2.7. 2.332949|[id number] for patient pvls47319-0Jhumz NoteLNNARRATIVEFormatted C-CDA narrative textUT[address] PcgmO[id number] 2MHKEXTTUMQQBFSGMCFWFUQ3483-99-88J8 5:31:351.2.840.601167.1.72.3.15|1.2 .840.875722.1.13.104.2.7.2.727879_2 [id number] [facility] 2023-10-15 08:38:48 y8wS2naUHv9lykpWzWsFx8jTXtQuyGAM3nC i1Jck0gt1UzHxIap9nximrO6inPFy4685-5 08:38:48 Images from the original note were not included.Requested RenewalsName from pharmacy: Meclizine HCl 25 MG Oral TabletWill file in chart as: MECLIZINE 25 mg tabletSig: TAKE 1 TABLET BY MOUTH EVERY 8 HOURS NEEDEDDisp: 20 tablet Refills: 0Start: 10/13/2023lass: eRXFor: Chronic nauseaLast ordered: 3 weeks ago (09/21/2023) by Lucretia Coburn refill: 4Rx #: [id number]-hddhur Etgosm0910/15/2023 08:13 AMProtocol Details This refill cannot be delegatedManual Review: Women's Health providers only allowed to refill requests.Valid encounter within last 12 monthsTo be filled at: [facility] [address] [place], [place] [address] VisitsDate Type Provider Dept1 Office Visit Taylor Verdin MD Ang-Db [facility] Med03/06/23 Office Visit Taylor Verdin MD Ang-Db [facility] Med01/19/23 Office Visit Taylor Verdin MD Ang-Db [facility]/ Office Visit Taylor Verdin MD Ang-Db [facility]10/18/22 Office Visit Holly Fregoso PA Ang-Db [facility]09/21/22 Office Visit Holly Fregoso PA Ang-Db [facility] MedShowing recent visits within past 540 days with a meds authorizing provider and meeting all other requirementsFuture AppointmentsNo visits were found meeting these conditions.Showing future appointments within next 150 days with a meds authorizing provider and meeting all other requirements 26513-4Ahzpxbtpu encounter AtdoYJ2115-32-57L46:38:55Telephone encounter NoteTXT1.2.840.102465.1.13.104.2.7. 2.585611|[id number] for patient sfla23957-1DgezQETTAXORQPIZpsqhnkdj C-CDA narrative cqko042616297Rxljfzx M Fisher [address] DsfnFjrvqvvegOlzfafgftIAZS387733416 1CRFOKBDMQIDCLEOUJUEIUF8136-15-95S9 8:38:551.2.840.394576.1.72.3.15|1.2 .840.733861.1.13.104.2.7.2.727879_2 [id number] Irene Morgan [facility] 2023-09-25 16:50:57 /8cLmIgok1Tsl2Dj+OnTD6hY5JL7TyNbaQ2 rCFEZMi9iZAf0xydIvELJsHGSYsM46670-5 6:50:57 See telephone encounter 09/25 90910-0Sbcvftclw encounter DhmsMQ6347-55-19P77:51:09Telephone encounter NoteTXT1.2.840.005447.1.13.104.2.7. 2.040014|[id number] for patient wgiw35585-4QyttBHZGSEAYABMFtiqgoykk C-CDA narrative zgpx173338001Frjapfz Collins [address] Ho[id number] 7CCHHNNGZKCITOSTEXGRFLS0118-81-71E0 6:51:091.2.840.564373.1.72.3.15|1.2 .840.511121.1.13.104.2.7.2.727879_2 [id number] Khris Grewal RN [facility] 2023-09-25 14:44:44 Do03PtrN2fc1OgGor3c5gCze+pYr8XwMqP0 ugnY3zzaYQ8A1hEepi7lip0OvL3sF6003-1 :44:44 Referral sent. 38659-9Pxxuoerlb encounter OuiaZK0512-85-30G93:44:50Telephone encounter NoteTXT1.2.840.349962.1.13.104.2.7. 2.526590|1178223354MBJkbiphngq for patient kzng78444-3UmkySOTVZVHVRKRFbngoclhm C-CDA narrative neol500239995Nwrsokk Collins [address] ZmgjAnklyqbvjMtporfvttAMWO985049785 7ULYTVOUSJKIWYSKISUJLIA9963-55-87K5 4:44:501.2.840.433695.1.72.3.15|1.2 .840.421897.1.13.104.2.7.2.727879_2 [id number] Khris Grewal RN [facility] 2023-09-25 14:02:45 F8s75tjSgxA1z0FGEhNIV5lq6lgbNfJYer4 vBwd1ubgTp3mp+swdXiLc0Bg5FN3o5633-3 4:02:45 Patient calling back need referral and records faxed to [employer] systems administrator office [phone], she did not know doctor name. 92287-9Omykyrpxt encounter SlhnFL6510-37-38A33:04:22Telephone encounter NoteTXT1.2.840.238121.1.13.104.2.7. 2.189319|4375277692FMQibduubrp for patient ljsn91387-8UdjiAWYUCBYFCMPIeqishtxn C-CDA narrative nead562201184Qvkkr Andrea[address] NznaJtxmhtgzpOgadtljrlJKMG308657622 5NKGPIEMCFGDVKUELLXSJXP0493-06-86X5 4:04:221.2.840.732077.1.72.3.15|1.2 .840.592442.1.13.104.2.7.2.727879_2 [id number] Jennifer Mendez [facility] 2023-09-25 13:55:40 LNwxWsqRJi/jBfFFMK9SafBFl74g0Nq/ARe 9e6KGDx79fN8BJKhMX2WJ2qClMXil7658-1 09-25T13:55:40 Spoke with patient. Patient requesting referral for local [employer] systems administrator. Referral placed for non [facility] provider. Patient will get fax number of clinic she will be going to and contact us to fax referral.Khris Grewal RN 09/25/2023 1:56 PM 22338-1Wgawpfgvg encounter LrunKR8514-85-97U88:56:21Telephone encounter NoteTXT1.2.840.566879.1.13.104.2.7. 2.268842|0337483813UQJxymmcaak for patient irge11246-5QdooFLQYRCDATOGOkycrtdus C-CDA narrative textUT[address] LuwkIcpaktitdVhbfqojepBUKZ829736034 9GIDGTCQHWJACCIHNKBOQJZ2749-27-86A1 3:56:211.2.840.969332.1.72.3.15|1.2 .840.407406.1.13.104.2.7.2.727879_2 [id number] [facility] 2023-09-25 12:22:23 ejSuQ605X3zLgKC1+LCiw7f2OYqwRi3ixpb zWcmYXnVLNgx9kC/EBrIP7V3w31A20454-5 09-25T12:22:23 Kelsey Harrell is a 38 year old femalePatient states that provider had wanted her to see a [employer] systems administrator. Patient is requesting for provider to place a referral for hematology and is wanting to know if provider could refer her to a [employer] systems administrator that is in her area. Patient lives in [place], [place]. So closer to [facility]. [address]37-3Zjylbjdvw encounter LvnmYR0870-97-36H49:25:13Telephone encounter NoteTXT1.2.840.856511.1.13.104.2.7. 2.659739|8159999310RFWoolufqes for patient zzer65294-3TzqnRRCZMSOXPZULkqibsivw C-CDA narrative odzw774303186Tskfmj A Garza[id number] 7IDAYIACHCJVVZNVGUMVNFJ5683-86-62H9 2:25:131.2.840.111155.1.72.3.15|1.2 .840.030623.1.13.104.2.7.2.727879_2 [id number] Kathryn Durán [facility] 2023-09-25 12:08:05 U9EQQqVp27P4Rq05qzDNCgvwzBcxSpjWc/w Pldxq8b89hU9ANcbxDiYLCvJmHJov3299-0 09-25T12:08:05 Patient is returning nurse's call. 96879-5Kkglxmcni encounter TunxPG6997-14-68P01:08:30Telephone encounter NoteTXT1.2.840.379049.1.13.104.2.7. 2.950735|4691870080KFMbhbqqcgv for patient aptj44871-0WtbvDULYVFXYLUHZgxdiiqel C-CDA narrative hyfi76355156Nshyq S Hernandez[id number] 7RDZTYYJFDIOEYUCPSTESOR4376-45-80V9 2:08:301.2.840.716632.1.72.3.15|1.2 .840.101127.1.13.104.2.7.2.727879_2 [id number] Chasidy Chaney [facility] 2023-09-20 14:10:48 guFoTyJ6FEaDvHKbnOuS5foXhvZISE6pdSX GX38urINingjaXu1/h3Oo5WbVeG/m3677-4 09-20T14:10:48 Images from the original note were not included.Notes: Cannot be delegatedLast Refilled:Name from pharmacy: Meclizine HCl 25 MG Oral TabletWill file in chart as: MECLIZINE 25 mg tabletSig: TAKE 1 TABLET BY MOUTH EVERY 8 HOURS NEEDEDDisp: 20 tablet Refills: 0Start: 09/20/2023lass: eRXFor: Chronic nauseaLast ordered: 3 months ago (06/06/2023) by Lucretia Coburn refill: 06/15/2023Rx #: [id number]-bvpdyi Hflwid5609/20/2023 12:09 PMProtocol Details This refill cannot be delegatedManual Review: Women's Health providers only allowed to refill requests.Valid encounter within last 12 monthsName from pharmacy: Promethazine HCl 12.5 MG Oral TabletWill file in chart as: PROMETHAZINE 12.5 mg tabletSig: TAKE 2 TABLETS BY MOUTH EVERY 6 HOURS NEEDED FOR NAUSEA AND VOMITINGDisp: 30 tablet Refills: 0Start: 09/20/2023lass: eRXFor: Chronic nauseaLast ordered: 3 weeks ago (08/24/2023) by Lucretia Coburn refill: 08/09/2023Rx #: [id number]-wmjads (Other) Whvlfb3209/20/2023 12:09 PMProtocol Details This refill cannot be delegatedManual Review: Women's Health only allowed to refill requestsValid encounter within last 12 monthsTo be filled at: [facility] [address] [place] [address] [address] WE[address]Recent VisitsDate Type Provider Dept1 Office Visit Taylor Verdin MD AngMaria ADb [facility] Med03/06/23 Office Visit Taylor Verdin MD Ang-Db [facility] Med01/19/23 Office Visit Taylor Verdin MD Ang-Db [facility] Med11/29/22 Office Visit Taylor Verdin MD Ang-Db [facility] Med10/18/22 Office Visit Holly Fregoso PA Ang-Db [facility] Med09/21/22 [facility] recent visits within past 540 days with a meds authorizing provider and meeting all other requirementsFuture AppointmentsNo visits were found meeting these conditions.Showing future appointments within next 150 days with a meds authorizing provider and meeting all other requirements 68031-3Qvakqbeef encounter MtxbAX6010-15-82T77:11:10Telephone encounter NoteTXT1.2.840.963266.1.13.104.2.7. 2.566307|1986598059QXCpnstgzvq for patient huxg71548-4NchfAOXRNGUABMEMufsihiio C-CDA narrative exwt889739573Hccnrf J Medina MA[address] WvkvSwisminckQxjornlxzUNFW136619816 5OPKEUUHLJOKHTPGERTLUEP4713-25-01X3 4:11:101.2.840.533802.1.72.3.15|1.2 .840.760536.1.13.104.2.7.2.727879_2 [id number] Judi Olson MA [facility] 2023-09-19 09:11:56 YjsBTrnWQx9KO4yn0l8l0nmhTHvLWw8Ilkh tbcnKX+dxjY4lLRGLjACkAkGMh2K+09:11:56 Lm on for pt to return call. BEBE MOONEY, BUCKY 09/19/2023 9:12 NANI MOONEY RN 09/19/2023 9:12 AM 32886-3Wqgcghmrt encounter YftyJS8859-69-83P01:12:59Telephone encounter NoteTXT1.2.840.534998.1.13.104.2.7. 2.970890|6336474115ONJyjxiyigp for patient xtrt45864-7HhhsYLENYZTSBGZKhphjfhxi C-CDA narrative goha712484383Aqpxpfuoq G Cervantes [id number] 2KCRZWQBXERKPXTXPDEDTDM5801-17-58V2 9:12:591.2.840.701645.1.72.3.15|1.2 .840.176394.1.13.104.2.7.2.727879_2 [id number] Bebe Mooney [facility] 2023-09-17 08:44:27 Mes32NV60Mbgfi08jsmNZvfl481wkaWQgv+ XMPkue+hWbjN9vnMHkfx5J3EbJyBL2700-9 08:44:27 Hematology. Has the patient seen someone before? 03512-2Vjwybvwex encounter NjbhVK8583-50-57Q84:44:56Telephone encounter NoteTXT1.2.840.783103.1.13.104.2.7. 2.630991|6061314743DZTgkeuppsy for patient vgou75469-1UhmmVMAWAJAFJJVBmwyksjex C-CDA narrative text[id number] 6JREQNNYRUHPWZPCOFJMABI4904-43-86K5 8:44:561.2.840.407966.1.72.3.15|1.2 .840.710231.1.13.104.2.7.2.727879_2 [id number] [facility] 2023-09-14 15:16:15 R4s5EmgHnnF5lkT16tWN/X3zg1V8R+T6wD2 qHDEOPNk2UArsNE1OVBMat8XztVAK2549-8 09-14T15:16:15 The Aspirin is to prevent DVT/PE.Can see specialist if desires.Can send an rx but not sure if Medicaid covers over the counter medication. 54280-6Jrwvfqdgk encounter QpcgKQ4455-59-30Y52:17:57Telephone encounter NoteTXT1.2.840.975668.1.13.104.2.7. 2.468336|2704495693IIGcaqltrll for patient iceh30711-1WimfBMPFAQKPAOGJhvkypmlc C-CDA narrative text[address] HyqbO[id number] 9SSDTORJBWUFFQDIBOMSBSF7298-38-91D0 5:17:571.2.840.988287.1.72.3.15|1.2 .840.928556.1.13.104.2.7.2.727879_2 [id number] [facility] 2023-09-13 14:36:17 QnjzWRe+YGpy8lrvf6ZM0lLXz82l6WydFYm 6hkmW/LcPVyg4zFo/Tg/r9Ht2y00O5029-6 09-13T14:36:17 Contacted patient to follow up with them regarding their procedure at the [facility] pain procedure suite. The patient reported the following information:1) Are you currently having any nausea or vomiting? No2) Do you or have you had any drainage at your injection site? No3) What was your pain scale prior to your procedure? 64) What is your pain scale now? 45) Have you had any difficulty urinating? No6) Do you now or since your procedure have you had any fever? No7) Is there anything concerning that you would like to share with your provider? No8) Were you satisfied with your care and experience in the [facility] Pain Procedure Suite? YesFERNANDA RAMOS RN 09/13/2023 2:36 PM 49472-3Cuypzlari encounter OzpbSM1195-20-14E23:44:18Telephone encounter NoteTXT1.2.840.261917.1.13.104.2.7. 2.479165|1952613099OSSyxjgepeb for patient yvmf74316-7QmyfHVPZWJLBNTGYanrqvzmx C-CDA narrative lktb481584095Qxjrfhsgm D Simpson RN[address] KbqlSldjomvmjQobuoboffYNUG998626326 2FVZWZYUZXMGWAGDRAEVMSI3308-03-66E8 4:44:181.2.840.430582.1.72.3.15|1.2 .840.578073.1.13.104.2.7.2.727879_2 [id number] Fernanda Ramos RN [facility] 2023-09-12 15:26:52 CAxUicO8mzYN/fkpcRDaehcYkbc0P8hm3CB y9CKQnpni7NBm0OHRiYHZFKTEv7u43919-7 09-12T15:26:52 Elapsed Sedation Time: 30 min. 53182-8Czqmz procedure crymRQ4172-24-63C17:26:54Nurse procedure noteTXT1.2.840.985239.1.13.104.2.7. 2.586021|1656544577CRZfohjkfmv for patient nbrg97980-9NbotRKUHPLVCKUIQstgtvxan C-CDA narrative xgee724235195GazaKaren Cano RNCRUZITO[id number] 2CPOMQWLVCJEARCUSIAPOIM2010-53-17O1 5:26:541.2.840.170191.1.72.3.15|1.2 .840.062224.1.13.104.2.7.2.727879_2 [id number] Karen Cano RN [facility] 2023-09-10 16:15:00 YryscVBpLVlu8fyM8ufdxZliFH4cN+0TQHy VeqCRck9LRL7kI91yMTrmRrmS8Us79137-7 6:15:00 Images from the original note were not included.Venipuncture collection performed by clean technique on the right anticubitus. Total of 1 attempts were made. Slight pressure and a bandage/dressing were applied to the site(s). The patient experienced no complications. The following specimens were processed according to instructions and sent to [facility] laboratories per lab order on 09/10/2023:LT BLUE 3SST 1REDLAVPPTDK GREEN (LiHep)DK GREEN (SodH)GRAYDK BLUE (K2)DK BLUE (S)ACDBlood CultureNIPT/NTD 72707-0Aetwh GrinFN0767-60-76M22:22:15Nurse NoteTXT1.2.840.523057.1.13.104.2.7. 2.384981|1155269092TJHnqquzkib for patient whdb90324-8Vdxtm NoteLNNARRATIVEFormatted C-CDA narrative text[id number] 6BELPVRIZCAEQMEYOLKPOZM7077-06-60Y3 6:22:151.2.840.925906.1.72.3.15|1.2 .840.339704.1.13.104.2.7.2.727879_2 [id number] [facility] 2023-09-10 16:15:00 JmIkIwIGPbY2QY3gIR7kGWXM9O8sYmMKDsT R381s0+J57SHGTsLWwWoNw5nZFu2R4022-0 6:15:00Addended by: LOYDA FRIEDMAN on: 09/11/2023 05:41 AMModules accepted: Orders 77064-3Ufkrzjpg PxpyxhknCO5662-50-00T52:41:16Addend um DocumentTXT1.2.840.549870.1.13.104. 2.7.2.698513|6315662077VBJfvdhxeoz for patient uqfe82283-0IhwuWEROBIPMGLGMtoxztehk C-CDA narrative kewk690763301X'Lya N [address] PxlgLswrdbyzcXkizdsbsqEUOG291360372 3COIDRZCWUDPGBJGGNNLXZA3217-47-87Z7 5:41:161.2.840.438784.1.72.3.15|1.2 .840.100848.1.13.104.2.7.2.727879_2 [id number] Loyda Polo [facility] 2023-09-10 16:15:00 Dl64wcWzr5M587lPZo0d8I95O6IpPE5qHos le2JGcXIW1ZlvDrTYNx+8Cr+27eRY8422-3 6:15:00Addended by: IRIS CASH on: 09/11/2023 07:51 AMModules accepted: Orders 94872-8Ouovyntq ZzjfboysOL1607-87-23Q10:51:43Addend DocumentTXT1.2.840.238383.1.13.104. 2.7.2.997635|4762625771CQYztjqeywo for patient mmxa77436-9OxvyNYTTTIPQNHKHvmsaozcv C-CDA narrative lywc535902581Tein [address] MntyYwlwhwlznXxnulsecsBCXJ742122989 6UHTPEUPUVJCZOOVIXPSYMT4294-64-28V4 7:51:431.2.840.491244.1.72.3.15|1.2 .840.019283.1.13.104.2.7.2.727879_2 [id number] Iris [facility] 2023-09-10 09:53:52 X45c4qQqYW9j6SvR05+WxIqmcbM+Ii4bjfH NCrDkqvg3S+tL7APm8AU2/OdmjrcL5786-5 09:53:52 Left a detailed message with the following preop instructions. Nothing by mouth after midnight night before procedure to include gum, mints, hard candy, suckers, cough drops, and dipping tobacco. Pt advised clear liquids are allowed up until 2 hours prior to arrival time. Pt was advised to have a responsible adult with them day of procedure, who must stay on location and take pt home. Pt may use medical transportation uber, lyft, taxi etc only if responsible person over the age of 18 is with the pt. Pt may not drive self home. Wear comfortable clothing and leave valuables at home. Address is [address] [place] [address] in [place]. If taking insulin patient is to take one half of normal evening dose day prior to procedure. Pt to follow physician instruction regarding blood thinners and NSAIDS. Covid/travel exposure and vaccination recommendations addressed with patient. Arrival time of 1330 given. 66104-6Nbrahxftk encounter UnkzUP1591-54-23E64:57:23Telephone encounter NoteTXT1.2.840.560632.1.13.104.2.7. 2.873993|7288572463BORzgjskyrn for patient wigx17197-7WfhvQPFKXJYEFMOVfclspkwn C-CDA narrative dqsu102222052Unwfdbz Williams [id number] 8DIIAVEAEXWTKMXTSADOGMN6323-19-59Z8 9:57:231.2.840.681648.1.72.3.15|1.2 .840.306297.1.13.104.2.7.2.727879_2 [id number] Dorothy Boris [facility] 2023-08-24 11:16:29 e7JP5x/eLzkNmplqiyuXkVQbW2tbDe8e9Le D1zpiaORZ1dOBMjuIW6EZGp7y5Y690383-3 08-24T11:16:29 Medication refilled per protocol. 52872-2Niiaeplqc encounter AupgVG5422-23-13G74:17:24Telephone encounter NoteTXT1.2.840.130717.1.13.104.2.7. 2.313501|4321193659KHVmlegprxc for patient slse95340-8EazjIIISRGFEJBITwubokvwr C-CDA narrative xbqa617615424Xkhvdaa R Allen [address]onTX[place] 0UPJEBLZAPFVAEIDLPHVNQN3558-89-45R7 1:17:241.2.840.221045.1.72.3.15|1.2 .840.568770.1.13.104.2.7.2.727879_1 [id number] Clara Wooten LVN [facility] 2023-08-08 16:18:59 hK7yBFhoQMQFsnWAgsPFJPg2tDh0weD5SkQ HoJfgptF9jU0YPGeDYW2ulPHf2FVI3723-3 10-09T16:18:59 Images from the original note were not included.Requested RenewalsName from pharmacy: Promethazine HCl 12.5 MG Oral TabletWill file in chart as: PROMETHAZINE 12.5 mg tabletSig: TAKE 2 TABLETS BY MOUTH EVERY 6 HOURS NEEDED FOR NAUSEA AND VOMITINGDisp: 30 tablet Refills: 0Start: 08/08/2023lass: eRXFor: Chronic nauseaLast ordered: 1 month ago (06/26/2023) by Lucretia Coburn refill: 06/26/2023Rx #: [id number]-gmwcvw (Other) Cnaedd5108/08/2023 03:15 PMProtocol Details This refill cannot be delegatedManual Review: Women's Health only allowed to refill requestsValid encounter within last 12 monthsTo be filled at: [address] VisitsDate Type Provider Dept1 Office Visit Taylor Verdin MD Ang-Db [facility] Med03/06/23 Office Visit Taylor Verdin MD Ang-Db [facility] Med01/19/23 Office Visit Taylor Verdin MD Ang-Db [facility] Med11/29/22 Office Visit Taylor Verdin MD Ang-Db [facility] Med10/18/22 Office Visit Holly Fregoso PA Ang-Db [facility] Med09/21/22 Office Visit Holly Fregoso PA Ang-Db [facility] MedShowing recent visits within past 540 days with a meds authorizing provider and meeting all other requirementsFuture AppointmentsNo visits were found meeting these conditions.Showing future appointments within next 150 days with a meds authorizing provider and meeting all other requirements 97784-0Xgdlyrhuy encounter NantDA0733-25-51R81:19:07Telephone encounter NoteTXT1.2.840.129228.1.13.104.2.7. 2.374091|0118939789HBJxiubrtad for patient otxc49272-4BwbwLZTBOXHXURAVrxjysenb C-CDA narrative zddr860579397Dvvclth M Fisher [id number] 7PAKUHQKLUWQVAVWTXGEYDH4297-97-74U9 6:19:071.2.840.598575.1.72.3.15|1.2 .840.768640.1.13.104.2.7.2.727879_1 [id number] Irene Morgan [facility] 2023-04-13 13:19:12 Vl7tLJBxtxUf5HrCU8OSv3TodRWlIlmOvvY 79MA3096i9jMhGIA+qegwsepEBwtv1116-4 04-13T13:19:12 Addendum created 04/13/23 1319 by Jayjay Contreras CRNA Intraprocedure Meds edited 11016-7Sjkieoly ZnlaadkyBE3845-93-73L90:19:12Addend um DocumentTXT1.2.840.158016.1.13.104. 2.7.2.211060|9803276971PYHosfbjeko for patient trbq07959-7NyjlLBTWQZ-CVTCY HAND TOOL LAPPER,CERTIFIED REGISTERED NURSE ANESTHETISTNACR-NURSE HAND TOOL LAPPER,CERTIFIED REGISTERED NURSE ANESTHETIST[id number] 5RNGWUIMNSHTDFBYXPRYIEQ8449-59-15P1 3:19:121.2.840.703256.1.72.3.15|1.2 .840.293008.1.13.104.2.7.2.727879_1 [id number] NACR-NURSE HAND TOOL LAPPER,CERTIFIED REGISTERED NURSE HAND TOOL LAPPER [facility] 2023-04-09 09:44:28 2azHfn9wGtesF32pPMTitowmYYtM+J0quoU rayand7XO5jO+tR4Vbun2cmlQvG176039-4 09:44:28 Patient: Kelsey Harrell Procedure Summary Date: 04/09/23 Room / Location: GI PROCEDURE [facility] LOCATION Anesthesia Start: 853 Anesthesia Stop: 915 Procedure: ESOPHAGOGASTRODUODENOSCOPY (Mouth) Diagnosis: Gastroesophageal reflux disease, unspecified whether esophagitis present Dysphagia, pharyngoesophageal phase Nausea (Gastroesophageal reflux disease, unspecified whether esophagitis present [K21.9]Dysphagia, pharyngoesophageal phase [R13.14]Nausea [R11.0]) Surgeons: Norbert Diaz MD Responsible Provider: Tacos Roman MD Anesthesia Type: General, TIVA ASA Status: 3 Anesthesia Type: General, TIVALast vitalsBP 117/82 (04/09/23 0940) Temp 36.2 ?C (97.1 ?F) (04/09/23 0924) Pulse 74 (04/09/23 0940) Resp 13 (04/09/23 0940) SpO2 97 % (04/09/23 0940) There were no known notable events for this encounter.Anesthesia Post EvaluationPatient location during evaluation: PACUPatient participation: complete - patient participatedLevel of consciousness: awake and alertPain score: 0Pain management: satisfactory to patientAirway patency: patentCardiovascular status: acceptable and blood pressure returned to baselineRespiratory status: acceptableHydration status: acceptable 75225-3Gaowgdfpgkqkcu Postoperative evaluation and management avseLA2431-49-14I96:44:37Anesthesio logy Postoperative evaluation and management noteTXT1.2.840.567598.1.13.104.2.7. 2.294514|[id number] for patient dmfu25598-9Fjvlvkev operation noteLNAN-ANESTHESIOLOGY ANESTHESIOLOGISTAN-ANESTHESIOLOGY ANESTHESIOLOGIST[address] T[id number] 0NJXTIZGUSJYXZXPPJDANML6731-53-59L1 9:44:371.2.840.995503.1.72.3.15|1.2 .840.084327.1.13.104.2.7.2.727879_1 [id number] AN-ANESTHESIOLOGY ANESTHESIOLOGIST [facility] 2023-04-09 08:59:10 qFyQi26yNyDh1+tP+BjEo9WswF6rxpPQvck RnuoeCjA9s1rnyUQiHyGZWy/rySTc1594-2 08:59:10 Images from the original note were not included.Requested [...] Verdin MD Last refill: 03/06/2023 Rx #: [id number] Anti-nausea (Other) Failed 04/09/2023 08:16 AM Protocol Details This refill cannot be delegated Manual Review: [facility] only allowed to refill requests Valid encounter within last 12 months To be filled at: [facility] - [address] Recent VisitsDate Type Provider Dept 03/06/23 Office Visit Taylor Verdin MD Ang-Db [facility] Med 01/19/23 Office Visit Taylor Verdin MD Ang-Db [facility] Med 11/29/22 Office Visit Taylor Verdin MD Ang-Db [facility] 10/18/22 Office Visit Holly Fregoso PA Ang-Db [facility] 09/21/22 Office Visit Holly Fregoso PA Ang-Db [facility] 01/16/22 Office Visit Radha Trinidad PA [facility] Showing recent visits within past 540 days with a meds authorizing provider and meeting all other requirementsFuture AppointmentsDate Type Provider Dept 06/06/23 Appointment Taylor Verdin MD Ang-Db [facility] Showing future appointments within next 150 days with a meds authorizing provider and meeting all other requirements 33062-0Oyohrgdsf encounter NstgAN8622-00-29S19:59:26Telephone encounter NoteTXT1.2.840.959959.1.13.104.2.7. 2.043421|[id number] for patient [id number] M Fisher [address] Yk[id number] 1NZJBOYKGOULZCWKNKBQEMI5096-31-29C2 8:59:261.2.840.563621.1.72.3.15|1.2 .840.973219.1.13.104.2.7.2.727879_1 [id number] Irene Morgan [facility] 2023-04-06 10:49:23 4d1O4Qfcd3N0c7x/r8oOfm+s9ute26XT2WZ 4pjXHXqTToAYArOHKTk54v7LEGfL07136-7 04-06T10:49:23 Attempted to call patient for appointment reminder/preoperative call. Voicemail left with phone number for patient to call back [phone] GiilXB9228-92-00K88:49:32Nurse NoteTXT1.2.840.792586.1.13.104.2.7. 2.474026|[id number] for patient [id number] Sheridan BUCKY[id number] 3YEGWAZCYQRKEMTBHGFJICZ9508-86-64S0 0:49:321.2.840.387921.1.72.3.15|1.2 .840.193923.1.13.104.2.7.2.727879_1 [id number] Emanuel Gandhi RN [facility] 2023-04-05 16:20:09 rzNhaMAD5fAVRarGhrDLWEiBpq4w8OZqgTA 84H1RgyIp1nRIwJVWc4cvZBr6RI6h4159-6 6:20:09 Placed Psychiatry referral per pt request 12569-1Tysdzhrrl encounter JgtwPE6632-28-60P99:24:43Telephone encounter NoteTXT1.2.840.610636.1.13.104.2.7. 2.294079|[id number] for patient gvuw43185-7OfrvSCQLRVVJKL[id number] 9YBKZVYBMOFCCIQBIDJBJWX8753-42-38V1 6:24:431.2.840.212200.1.72.3.15|1.2 .840.811331.1.13.104.2.7.2.727879_1 [id number] [facility] 2023-04-03 10:34:22 2ar4kTXawqytiNZzg2fLV3rrZEWSPFa+Z6F xp1Nfz+mugi7dLWnTomtwSOj0bbGB0230-5 8-22T10:34:22 Name/ MRN / Age / Gender:Kelsey Harrell, [id number] year old female BMI:Estimated body mass index [...] 04/09/2023Surgeon: Norbert Diaz, MDProcedure: ESOPHAGOGASTRODUODENOSCOPY (Mouth)OR [facility] OR LOCATIONAnesthesia Preop Eval (physical exam)Copied forward and updated from: 11/14/2021 Anesthesia Preop: Chart Review, Phone Preop and Piii-qb-JcgeUSRO questionnaire answers incorporatedAPAC Communication: Ozempic, jardiance.Spoke with pt. Her last dose of [...] 7.0 at 22 cm, cuffed, DL,Mac 3, e8p-CGLT 1 approach 07/29/2021: MOD sedation for injections10/18/2020: [...] Last Year(-) Patient does not report prior OH(-) CAD(-) Valvular problems/murmurs(-) Dysrhythmias(-) Pt reports prior cardiac surgery(-) No cardiovascular devices present(-) CHF PulmonaryComments: Chronic cough since Covid07/20/2021: DX bronchitis/sinusitis at . 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 Hold on DOS. Phentermine: Alert [facility] anesthesiologistSGLT2 Inhibitors: "gliflozins" to be held [...] by mouth at bedtime. 90 tablet 3 Agent [employer] Kit Use as directed 1 Kit 0 tiZANidine 4 mg tablet Take 1 tablet morning and afternoon, 2 tablets at bedtime 120 tablet 3 NuvaRing 0.12-0.015 mg/24 hr vaginal insert [...] and 1 Each in the evening. 118 mL 2 pantoprazole 40 mg EC tablet Take 1 tablet by mouth in the morning. 90 tablet 1 Kjiuslehrl-Iztiqqjivlqjo-Uayg 50-300-40 mg per capsule TAKE 1 CAPSULE BY MOUTH EVERY 6 HOURS NEEDED fluticasone propionate 50 mcg/actuation nasal spray Use 1 [place] in each nostril in the morning. 16 [...] N/A 05/28/2020 Surgeon: Norbert Diaz MD; Location: [facility] COLONOSCOPY 05/28/2020 COLPOSCOPY HEMORRHOIDECTOMY N/A 11/14/2021 Surgeon: Azalia Michel MD; Location: [facility] JOINT INJECTION Right 10/18/2020 Surgeon: [facility] Morley MD; Location: [facility] Anesthesia Physical ExamGeneralno apparent distress and alert [...] routine analgesia & antiemeticsRecovery Plan: PACUAdditional comments: 67305-9Astqayequgptht Preoperative evaluation and management lbylSS6044-41-34R50:43:50Anesthesio logy Preoperative evaluation and management noteTXT1.2.840.997397.1.13.104.2.7. 2.012453|[id number] for patient umvi25640-5Evedrcrf operation noteLN[id number] 7JKDQEOSPKQBQAPYWDRZCTW7324-91-88U0 7:43:501.2.840.726099.1.72.3.15|1.2 .840.696422.1.13.104.2.7.2.727879_1 [id number] [facility] 2023-04-02 15:01:53 tA0xAX6WQJVuFS5I3aKwzy3ZBZ7FvkeQ+bz 9cQM2TQJlL8Nh//fyfELYzxuC+r5F2156-5 5:01:53 Requested Prescriptions Pending Prescriptions Disp Refills semaglutide (OZEMPIC) 2 mg/dose (8 mg/3 mL) PnIj [Pharmacy Med Name: OZEMPIC 2mg/dose Pen Injector] 3 mL 2 Sig: INJECT TWO (2) MG UNDER THE SKIN ONCE WEEKLY. 19570-0Zqjgpjxqy encounter XzzaKL8467-25-44A48:02:31Telephone encounter NoteTXT1.2.840.270747.1.13.104.2.7. 2.695753|[id number] for patient nxjd74902-1VvsrKD391570232Zamdjxxy Avalos [id number] 2AMJPFJLBZSZBAZCSQYLBQL0347-70-23F2 5:02:311.2.840.201609.1.72.3.15|1.2 .840.126311.1.13.104.2.7.2.727879_1 [id number] Yasmeen Finch MA [facility] 2023-03-30 16:41:53 h3KHPsvq0iDb1i2dRTkQLdKbndvzTE9krTX gJKhY7NdwlLyON2OJeswYDONUFx9R2482-9 6:41:53 LOVN sent to [facility] via right fax 43352-4Hwkwsaigy encounter JplcRU2607-02-63M96:42:20Telephone encounter NoteTXT1.2.840.904555.1.13.104.2.7. 2.607023|[id number] for patient mpus51128-5LmxrBY242471012Ffipmwa L Barrientos [address] Yd[id number] 3CDPDEZZXFXQZXXTGMJFUHT1136-76-41M5 6:42:201.2.840.074652.1.72.3.15|1.2 .840.963201.1.13.104.2.7.2.727879_1 [id number] Chari Mckeon [facility] 2023-03-19 14:58:36 MDtj4F2wUJSeVra61hAAz+rs+DrvqUEuFqB okAQDMMZKTT/YUzP2syXW0eO8Ij3p0090-5 :58:36 Prescription & Letter of Medical Necessity has been completed & signed by DAISY Vila as well as scanned to patient's chart. Clinical notes, patient demographics, & LMN have all been faxed to [facility] .Bia Zelaya MA 03/19/2023 2:58 PM 49639-1Tmhpsmnbh encounter TxuhTX2374-33-89B29:58:47Telephone encounter NoteTXT1.2.840.264847.1.13.104.2.7. 2.048352|0876615756TFSryitnbbn for patient hykf65852-8NfqqAZ366168656Rkrkdlw Martinez [id number] 7JEDKYNWUPKYPUYNJGABLQB2454-20-54E5 4:58:471.2.840.839863.1.72.3.15|1.2 .840.150375.1.13.104.2.7.2.727879_1 [id number] Bia Zelaya MA [facility] 2023-03-19 14:52:39 EEB8UfAw6BiyIfvLm7DARccdJJXwDoy99ui 8LTQ+phEhgXdCS72efo2C+8zyGjLq5893-2 4:52:39 Fax received from [employer] stating they did not receive the LMN sent by DAISY Vila on 03/13/2023. LMN filled out and placed in DAISY Vila's folder for review and signature. Bia Zelaya MA 03/19/2023 2:54 PM 50569-9Yhayqkbaz encounter AthxOU9150-31-16Z14:58:47Telephone encounter NoteTXT1.2.840.043758.1.13.104.2.7. 2.135354|0389897762WMBflhvzbgv for patient qcyl61052-9UtnmZIZXATXVXI02 [id number] 8QDINVKJVZQIUURNQSZFFJB6079-07-61T1 4:58:471.2.840.092971.1.72.3.15|1.2 .840.199041.1.13.104.2.7.2.727879_1 [id number] [facility] 2023-03-14 08:24:53 ZoIEIDGK0ZhwIRWiujDM4y2W3VWMb/W0RC0 cGx6EPcq5RNQyJX6pYWl6B0FgZsyq5685-1 08:24:53 Prior Authorization for Celecoxib 100MG capsules has been APPROVED. Dates: 03/14/2023 - 03/13/2024A#: [id number] Zelaya MA 03/14/2023 8:24 AM 16138-2Ltefpbehw encounter LmsqHJ3406-01-18J64:25:53Telephone encounter NoteTXT1.2.840.531571.1.13.104.2.7. 2.776640|[id number] for patient hplm22271-9HkxwOM494600723Cfddhnm Martinez MA[address] VwufB[id number] 8XQDQMPGGPLUSRSZXKBOAUD6674-11-15G4 8:25:531.2.840.429611.1.72.3.15|1.2 .840.478122.1.13.104.2.7.2.727879_1 [id number] Bia Zelaya MA [facility] 2023-03-14 08:07:24 jNnlq4LzZmlnLqUD6qgRU69zyTWdZIZYqxL 9q6+rF4NjUJ1qRRav5hQjzvlg4fAA2113-3 08:07:24 Images from the original note were not included.Prior Authorization required for Celecoxib 100MG capsules.Covermymeds.comKEY: [id number] [facility] [address] [place], [place] [address]Phone: DgmdhspBia Zelaya MA 03/14/2023 8:12 AM 22742-2Uxhuoahmo encounter TbbeMK7483-33-57W87:12:56Telephone encounter NoteTXT1.2.840.766127.1.13.104.2.7. 2.383281|0610129908QKEudoznpji for patient ehpe87028-5HdjkEN679522383Ocsvbxf Martinez [id number] 8USZXJMBCUAGTCSAZFPYIHQ0139-04-13P7 8:12:561.2.840.663417.1.72.3.15|1.2 .840.060586.1.13.104.2.7.2.727879_1 [id number] Bia Zelaya MA [facility] 2023-03-13 14:30:00 YHlPlbdSugnW9Cfhh22ZiL9Des1bA7oqXQD +uhGSb1yDzUM7+/8/CvVf3k0QaSP/03-13T14:30:00 Addended by: BETH PHAM RN on: 03/15/2023 05:00 PM Modules accepted: Orders 88836-6Vsabxnyy PvolwfqlZC7833-76-27O09:00:15Addend um DocumentTXT1.2.840.772510.1.13.104. 2.7.2.993489|[id number] for patient fgcm20602-5XrjfIEGWLIPUPJ02 [id number] 9QQPBZMUDTCSBFAQELQBKYL0800-48-26W4 7:00:151.2.840.698477.1.72.3.15|1.2 .840.928847.1.13.104.2.7.2.727879_1 [id number] [facility] 2023-03-08 16:12:58 x0N8QO02DFgLdXPPoQPN0b9wYVqV+w3kyMn gRXjymWvaeYzQKjrBeFagWg/loPHc2925-1 6:12:58 Recent VisitsDate Type Provider Dept 03/06/23 Office Visit Taylor Verdin MD [facility] Med 01/19/23 Office Visit Taylor Verdin MD [facility] Med 11/29/22 Office Visit Taylor Verdin MD [facility] Med 10/18/22 Office Visit Holly Fregoso PA [facility] Med 09/21/22 Office Visit Holly Fregoso PA [facility] Med 01/16/22 Office Visit Radha Trinidad PA [facility] Showing recent visits within past 540 days with a meds authorizing provider and meeting all other requirementsFuture AppointmentsDate Type Provider Dept 06/06/23 Appointment Taylor Verdin MD [facility] Showing future appointments within next 150 days with a meds authorizing provider and meeting all other requirementsLast refill wasNuvaRing 0.12-0.015 mg/24 hr vaginal insert 1 Each 0 02/05/2023 -- Sig: Insert 1 Each into vagina once every month. Insert vaginally and leave in place for 3 consecutive weeks, then remove for 1 week. 96158-7Jtoaopfji encounter HbtxNF8547-39-48B19:13:16Telephone encounter NoteTXT1.2.840.743958.1.13.104.2.7. 2.845900|9334214465PBPfmeteoyc for patient dqnt018092423Zyyraml R Leon [address] TnxaMrftdhbbsVpgnavlkvJXPS396607566 3FPFQKOTMOVIAVPJVUIWUBP3105-31-51A6 6:13:161.2.840.064774.1.72.3.15|1.2 .840.062730.1.13.104.2.7.2.727879_1 [id number] Nidia Barnhart MA [facility] 2023-03-06 15:35:12 qQojEliJcPXeZ1DW5RwRKGWCCjlRygRHj01 b5MxpYgZ6iFsH3YfvrSHog1HIzRgo2654-3 03-06T15:35:12 NuvaRing 0.12-0.015 mg/24 hr vaginal insertInsert 1 Each into vagina once every month. Insert vaginally and leave in place for 3 consecutive weeks, then remove for 1 weekDispense: 1 Each Refills: 0 ordered 81271-3Yzxcaqejj encounter AxqhKH8279-38-94N14:38:00Telephone encounter NoteTXT1.2.840.621831.1.13.104.2.7. 2.854078|8347399066WLNkvmptubf for patient care[address] UlidI[id number] 1NWXBYZLLPNMBFCYROOCQDV6594-53-39B0 5:38:001.2.840.014100.1.72.3.15|1.2 .840.726167.1.13.104.2.7.2.727879_1 [id number] [facility] 2023-02-26 09:04:23 CSGeLaPGfum5Aq0bBf+4ptOJ2NsCgS5Mwq4 SARTHAK/R59HwvaskDhVIAH4J3Fwoigv8648-6 09:04:23 Requested Prescriptions Pending Prescriptions Disp Refills OZEMPIC 2 [...] Dept 04/18/22 Telemedicine Visit Radha Trinidad PA [facility] Showing recent visits within past 365 days and meeting all other requirementsFuture AppointmentsNo visits were found meeting these conditions.Showing future appointments within next 365 days and meeting all other requirements Rerouting to correct pool/clinician 79971-7Ipmwkxmpj encounter VwdzFK1615-50-08Q08:05:25Telephone encounter NoteTXT1.2.840.463001.1.13.104.2.7. 2.306460|1620500060QZAhelydqhe for patient [id number] Jackson MA[address] Vxr[id number] 9TAMLESMQZKHMSIWWILXHSZ8589-67-57H6 9:05:251.2.840.050611.1.72.3.15|1.2 .840.116746.1.13.104.2.7.2.727879_1 [id number] Sabrina Bee MA [facility]
[2023-11-12 23:38] VITALS: TEMP 97.8; O2SAT 98
== END 2023-11-12 16:58 | disposition home or self-care (01) ==
LOC: ER 16:07
DX: L03.818 Cellulitis of other sites (principal)
CPT/HCPCS: 99283

== ENCOUNTER 2023-12-18 14:33 | Emergency (ER) | payer OTHER ==
--- OUTSIDE RECORDS SUMMARY | 2023-12-18 14:53 | XMS REPORT | Continuity of Care Document ---
Author Name Unknown Address [address] [facility] [place] [address] [facility] Address [address] [facility] [place] [address] Care Team Providers Care Aids Nurse Name Role Phone TAYLOR VERDIN Primary Care Physician Unavailable AZALIA MICHEL Attending Clinician Unavailable CURTIS MORLEY Attending Clinician UnavailNORBERT Dyer Attending Clinician Unavailable NORBERT DIAZ Attending Clinician Unavailable NAINA SEGOVIA Attending Clinician Unavailable MARIE GARZON Attending Clinician Unavailable TAYLOR VERDIN Attending Clinician Priscilla ABIEL Argueta Attending Clinician Unavail able Taylor Verdin MD Attending Clinician Richa Dominguez MD Attending Clinician Unavailable Marie Garzon MD Attending Clinician [phone] Lab, Ang - Db Attending Clinician Unavailable RICHA DOMINGUEZ Attending Clinician Unavailable BETH PHAM Attending Clinician Unavailable Carmen Figueroa MD Attending Clinician + [phone] Beth Rodriguez Attending Clinician Doctor Unassigned, [place] Attending Clinician U Curtis Johnson MD Attending Clinician [phone] 2, Adc Lab Attending Clinician Unavailable CARMEN FIGUEROA Attending Clinician UnaEZ Umanzor Attending Clinician UnavailEZ Saenz Attending Clinician UnavailELDER Del Valle Attending Clinician Unavaila anne Diaz MD, Norbert Vidal Attending Clinician [phone] Janine LAWLER, Yvonne Attending Clinician UnavailTacos Burgos MD Attending Clinician +[phone] EAMON CARRASCO Attending Clinician Unavailable EAMON CARRASCO Attending Clinician Unavailable Gisella MCMANUSP, Chew Attending Clinician [phone] HOLLY FREGOSO Attending Clinician Unavailable Radha Andrade Attending Clinician [phone] Raul Wilkinson MD Attending Clinician +[phone] DUNCAN RAMOS Attending Clinician UnavailDuncan Red MD Attending Clinician +[phone] BIA CHAMORRO Attending Clinician Unavailable Sabrina Bee MA Attending Clinician Unavailabl diana [facility] Attending Clinician Unavailable Jacob CHONG, Harjinder White Attending Clinician [phone] HARJINDER JAMES Attending Clinician Unavail Vanda Wright MD Attending Clinician [phone] Elder Lyons MD Attending Clinician [phone] MEGHAN MARKHAM Attending Clinician Unavailable Skyler Ferrari MD Attending Clinician [phone] Holly Herrera Attending Clinician [phone] Meghan Markham MD Attending Clinician +[phone] SKYLER FERRARI Attending Clinician Unavail able SKYLER FERRARI Attending Clinician Unavail able [facility] Sleep [facility] Attending Clinician UnavailKalli Velasco MD Attending Clinician + [phone] KALLI JEFFERSON Attending Clinician UnavailKALLI Velasco Attending Clinician UnavailLana Shrestha RN Attending Clinician Unavailable Argentina Looney MD Attending Clinician +[phone] ARGENTINA LOONEY Attending Clinician Unavailable CAMILO CORLEY Attending Clinician Unazackery Corley MD, Camilo Lobo Attending Clinician [phone] Lab, [facility] [address] Attending Clinician Unavai lable TRINIDAD, RADHA Attending Clinician Unavailable Azalia Michel MD Attending Clinician [phone] Ashley Hernandez Attending Clinician + [phone] Catalina Mendez PA-C Attending Clinician +[phone] Kristi CHONG, Byron Ward Attending Clinician +[phone] Only, Adc Test Attending Clinician Unavailable [place] Attending Clinician [phone] Wade CHONG, Rene Mar Attending Clinician +[phone] SAMINA BOOKER Attending Clinician Unavailable Samina Martinez Attending Clinician [phone] Unknown, Attending Attending Clinician Unavailab brandon Mcdonough, [facility] Adult Urgent Attending Clinician Unav ailable Therapy, [facility]fusion Attending Clinician Unavailable Tejinder Valles MD Attending Clinician + [phone] TEJINDER VALLES Attending Clinician Unavailable ASHLEY RAINES Attending Clinician Unavailable Alicja CROWDER, Ever Attending Clinician + UNKNOWN, ATTENDING Attending Clinician Unavailab brandon Venegas MD, Barrington Bellamy Attending Clinician + [phone] CATALINA MENDEZ Attending Clinician Unavail able HEATH JOHNSON Attending Clinician Unavailable Biju CHONG, Brady Mroeira Attending Clinician [phone] Rj CHONG, Amando Umanzor Attending Clinician +- [phone] Elena LAWLER, Norma Burch Attending Clinician Unavailab NEW Maya Attending Clinician Unavaila ble Olivia, [facility] Adult Urgent Attending Clinician Judy Souza MD, Chan Attending Clinician Unavailable Emeli CROWDER, Cait Attending Clinician [phone] Vineet CROWDER, Monika Vogel Attending Clinician EMILY ARGUETA Attending Clinician Unavaila anne Ortega, [facility] Attending Clinician Unavailab brandon Avila MD, Jenny Mantilla Attending Clinician [phone] Taurus Guadalupe MD Attending Clinician [phone] TAURUS GUADALUPE Attending Clinician Unavailable Tacos Giron DO Attending Clinician [phone] Only, Pcp Test Attending Clinician Unavailable Emily Fay Attending Clinician + [phone] Aiyana Bojorquez Attending Clinician +[phone] [facility] Attending Clinician Unavailable Micheline Mixon MD Attending Clinician [phone] MICHELINE MIXON Attending Clinician Unavailable AIYANA HOLLINGSWORTH Attending Clinician Unavailable Andrea Galeano PTA, Maki A Attending Clinic hoang Unavailable Jorge Luis CHONG, Brady Umanzor Attending Clinician [phone] Bessie Alexandre RN Attending Clinician Unavailable Fellow, Cardiology Attending Clinician Unavailab brandon CROWDER, Octavio Vidal Attending Clinician +[phone] OCTAVIO ANDERSON Attending Clinician Unavailable Rain Ross PT Attending Clinician UnaBRADY Purvis Attending Clinician Unavailable Lucille Banks LPC Attending Clinician [phone] LUCILLE BANKS Attending Clinician Unavaila Selena Ortez MD Attending Clinician [phone] Tony Grigsby RN Attending Clinician Unavailab Keri Acosta MD Attending Clinician [phone] Pcp, Patient Does Not Have A Attending Clinician Gordy Corbett MD Attending Clinician + [phone] GORDY CORBETT Attending Clinician Unavaila Odilia Farnsworth MD Attending Clinician +[phone] ODILIA MEJIA Attending Clinician Unavailab Elaina Suarez MD Attending Clinician [phone] [place] Attending Clinician Unavailable Bill Luque Attending Clinician UnavailKami Garrido Attending Clinician Unavailable Radha Wilson Attending Clinician Unavailable Reyes Martinez Attending Clinician Unavailable Genesis Bustamante Attending Clinician Unavailable AZALIA MICHEL Admitting Clinician Unavailable CURTIS MORLEY Admitting Clinician Unavaila NORBERT Humphries Admitting Clinician Unavailable Norbert Diaz MD Admitting Clinician [phone] SKYLER FERRARI Admitting Clinician Unavail able EZ PALACIO Admitting Clinician Unavaila CAMILO Alonzo Admitting Clinician Judy Michel MD, Azalia Admitting Clinician [phone] Curtis Morley MD Admitting Clinician + [phone] AP[place]OWN Admitting Clinician Unavailable Payers Payer Name Policy Type Policy Number Effective Date Expirati on Date Source [facility] [id number] 00:00:00 [place] [id number] 2023 00:00:00 [facility] [id number] 2022 00:00:00 Problems Condition Name Condition Details Condition Category Status Onset Date Resolution Date Last Treatment Date Treating Clinician Comments Source Obesity (BMI 30-39.9) Obesity (BMI 30-39.9) Disease Active - 00:00: 00 [facility] GENNY (generaliz ed anxiety disorder) GENNY (generaliz ed anxiety disorder) Disease Active 04-05 00:00: 00 [facility] PTSD (post-trau matic stress disorder) PTSD (post-trau matic stress disorder) Disease Active 04-05 00:00: 00 [facility] Persistent depressive disorder Persistent depressive disorder Disease Active 04-05 00:00: 00 [facility] Gastroesop hageal reflux disease, unspecifie d whether esophagiti s present Gastroesop hageal reflux disease, unspecifie d whether esophagiti s present Disease Active 01-02 00:00: 00 Overview: Formattin g of this note might be different from the original. Added automatic ally from request for surgery [id number] [facility] Dysphagia, pharyngoes ophageal phase Dysphagia, pharyngoes ophageal phase Disease Active 01-02 00:00: 00 Overview: Formattin g of this note might be different from the original. 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 Disease Active - 00:00: 00 [facility] Nausea Nausea Disease Active 01-01 00:00: 00 [facility] AKHIL (obstructi ve sleep apnea) AKHIL (obstructi ve sleep apnea) Disease Active 3-12 00:00: 00 [facility] Sleep difficulti es Sleep difficulti es Disease Active 2-09 00:00: 00 [facility] Chronic fatigue Chronic fatigue Disease Active 2- 00:00: 00 [facility] Chronic nausea Chronic nausea Disease Active 2- 00:00: 00 [facility] History of recurrent miscarriag es History of recurrent miscarriag es Disease Active 1-03 00:00: 00 [facility] Patient desires Patient desires Disease Active 1-03 00:00: 00 [facility] Hirsutism Hirsutism Disease Active 2021-08 2- 00:00: 00 [facility] Screen for STD (sexually transmitte d disease) Screen for STD (sexually transmitte d disease) Disease Active 2021-08 2-05 00:00: 00 [facility] Vaginal discharge Vaginal discharge Disease Active 2021-08 2-05 00:00: 00 [facility] Missed menses Missed menses Disease Active 2021-08 2-05 00:00: 00 [facility] Pain pelvic Pain pelvic Disease Active 2021-08 2-05 00:00: 00 [facility] History of PCOS History of PCOS Disease Active 2021-08 2-05 00:00: 00 [facility] Irregular menstrual cycle Irregular menstrual cycle Disease Active 2021-08 2-05 00:00: 00 [facility] External hemorrhoid s External hemorrhoid s Disease Active 5-17 00:00: 00 [facility] Grade II internal hemorrhoid s Grade II internal hemorrhoid s Disease Active 5-14 00:00: 00 Overview: Formattin g of this note might be different from the original. Added automatic ally from request for surgery [id number] [facility] Sacroiliit is Sacroiliit is Disease Active 09-23 00:00: 00 Overview: Formattin g of this note might be different from the original. Added automatic ally from request for surgery [id number] [facility] Loose stools Loose stools Disease Active 2019-08 00:00: 00 Overview: Formattin g of this note might be different from the original. Added automatic ally from request for surgery [id number] [facility] Blood in stool Blood in stool Disease Active 2019-08 00:00: 00 Overview: Formattin g of this note might be different from the original. Added automatic ally from request for surgery [id number] [facility] Pre-eclamp teodora affecting , antepartum Pre-eclamp teodora affecting , antepartum Disease Active 04-24 00:00: 00 [facility] Latex allergy Latex allergy Disease Active 04-17 00:00: 00 [facility] Latex allergy Latex allergy Disease Active 04-17 00:00: 00 [facility] Sciatic nerve disease, right Sciatic nerve disease, right Disease Active 02-10 00:00: 00 [facility] Sciatic nerve disease, right Sciatic nerve disease, right Disease Active 02-10 00:00: 00 [facility] 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 COPD v. asthma [facility] Anxiety Anxiety Disease Active [facility] Fatty liver Fatty liver Disease Active [facility] Allergies, Adverse Reactions, Alerts Allergy Name Allergy Type Status Severity Reaction(s) Onset Date Inactive Date Treating Clinician Comments Source BUSPIRON E DRUG INGREDI Active High Other-Cmnt 10-24 00:00: 00 [facility] Buspiron e Propensi ty to adverse reaction s Active Other - See comments 10-24 00:00: 00 Can't sleep, cannot focus, confusion [facility] Buspiron e Drug Intolera nce Active Other - See comments 10-24 00:00: 00 Can't sleep, cannot focus, confusion [facility] Latex Drug Allergy Active Rash 12-06 00:00: 00 [facility] Latex Propensi ty to adverse reaction s Active Rash 12-06 00:00: 00 [facility] LATEX DRUG INGREDI Active Rash 12-06 00:00: 00 [facility] Social History Social Habit Start Date Stop Date Quantity Comments Source Gender identity [facility] intake 2023-10-15 00:00:00 2023-10-15 00:00:00 Current non-drinker of alcohol (finding) [facility] History of Social function 2023-04-09 00:00:00 2023-04-09 00:00:00 [facility] Exposure to SARS-CoV-2 (event) 2022-12-30 00:00:00 2023-01-09 09:52:00 Not sure [facility] Cigarettes smoked current (pack per day) - Reported 2022-09-21 00:00:00 2022-09-21 00:00:00 [facility] Cigarette pack-years 2022-09-21 00:00:00 2022-09-21 00:00:00 [facility] Tobacco use and exposure 2022-09-21 00:00:00 2022-09-21 00:00:00 Smokeless tobacco non-user [facility] Tobacco Comment 2022-05-16 00:00:2022-05-16 00:00:00 vapes [facility] History of tobacco use 2016-12-31 00:00:00 2020-07-20 00:00:00 Cigarette Smoker [facility] Sex Assigned At 1985 00:00:00 1985 00:00:00 [facility] Smoking Status Start Date Stop Date Source Ex-smoker 2022-09-21 00:00:00 2022-09-21 00:00:00 [facility] Occasional tobacco smoker 2020-06-30 00:00:00 [facility] Medications Ordered Medication Name Filled Medication Name Start Date Stop Date Current Medication? Ordering Clinician Indication Dosage Frequency Signature (SIG) Comments Components Source MECLIZINE 25 mg tablet 12-03 00:00: 00 Yes [id number] TAKE 1 TABLET BY MOUTH EVERY 8 HOURS NEEDED [facility] PROMETHAZIN E 12.5 mg tablet 12-03 00:00: 00 Yes [id number] TAKE 2 TABLETS BY MOUTH EVERY 6 HOURS NEEDED FOR NAUSEA AND VOMITING [facility] ESCITALOPRA M OXALATE 20 mg tablet 11-05 00:00: 00 Yes [id number] 20mg TAKE 1 TABLET BY MOUTH IN THE MORNING [facility] PROMETHAZIN E 12.5 mg tablet 11-05 00:00: 00 12-03 00:00 :00 No [id number] TAKE 2 TABLETS BY MOUTH EVERY 6 HOURS NEEDED FOR NAUSEA AND VOMITING [facility] MECLIZINE 25 mg tablet 11-05 00:00: 00 12-03 00:00 :00 No [id number] TAKE 1 TABLET BY MOUTH EVERY 8 HOURS NEEDED [facility] MECLIZINE 25 mg tablet 10-15 00:00: 00 11-05 00:00 :00 No [id number] TAKE 1 TABLET BY MOUTH EVERY 8 HOURS NEEDED [facility] insulin NPH (NOVOLIN N NPH U-100 INSULIN) 100 unit/mL injection 10-14 15:10: 13 10-14 00:00 :00 No 5U inject 5 Units under the skin every morning and evening. [facility] insulin NPH (NOVOLIN N NPH U-100 INSULIN) 100 unit/mL injection 10-14 00:00: 00 Yes [id number] 5U inject 5 Units under the skin every morning and evening. [facility] empaglifloz in (JARDIANCE) 25 mg Tab tablet 10-14 00:00: 00 Yes [id number] 25mg Take 1 tablet by mouth every morning. [facility] metFORMIN 1,000 mg tablet 10-14 00:00: 00 Yes [id number] 1000mg Take 1 tablet by mouth in the morning and 1 tablet in the evening. Take with meals. [facility] pioglitazon e 30 mg tablet 10-14 00:00: 00 Yes [id number] 30mg Take 1 tablet by mouth in the morning. [facility] tirzepatide (MOUNJARO) 12.5 mg/0.5 mL subcutaneou s injection 10-14 00:00: 00 Yes [id number] 12.5mg inject 12.5 mg under the skin weekly. [facility] PROMETHAZIN E 12.5 mg tablet 09-21 00:00: 00 11-05 00:00 :00 No [id number] TAKE 2 TABLETS BY MOUTH EVERY 6 HOURS NEEDED FOR NAUSEA AND VOMITING [facility] MECLIZINE 25 mg tablet 09-21 00:00: 10-15 00:00 :00 No [id number] TAKE 1 TABLET BY MOUTH EVERY 8 HOURS NEEDED [facility] FENTanyl PF (SUBLIMAZE (PF)) injection 09-12 20:56: 10 09-12 20:56 :10 No Slow IV Push, TITRATE - FOR PROCEDURE USE, 1 dose, Starting on Sun09/12/23 at 1456, Until Sun09/12/23 at 1456, Routine [facility] midazolam (VERSED) injection 09-12 20:46: 26 09-12 20:46 :26 No IV Push, TITRATE - FOR PROCEDURE USE, 1 dose, Starting on Sun09/12/23 at 1446, Until Sun09/12/23 at 1446, Routine [facility] FENTanyl PF (SUBLIMAZE (PF)) injection 09-12 20:40: 07 09-12 20:40 :07 No Slow IV Push, TITRATE - FOR PROCEDURE USE, 1 dose, Starting on Sun09/12/23 at 1440, Until Sun09/12/23 at 1440, Routine [facility] FENTanyl PF (SUBLIMAZE (PF)) injection 09-12 20:34: 23 09-12 20:34 :23 No Slow IV Push, TITRATE - FOR PROCEDURE USE, 1 dose, Starting on Sun09/12/23 at 1434, Until Sun09/12/23 at 1434, Routine [facility] lidocaine 1% (PF) (XYLOCAINE) injection 10 mL 09-12 20:30: 00 09-12 20:34 :00 No [id number] 10mL [facility] triamcinolo ne acetonide (KENALOG) injection 80 mg 09-12 20:30: 00 09-12 20:35 :00 No [id number] 80mg [facility] sodium bicarbonate 1 mEq/mL (8.4 %) injection 1 mL 09-12 20:30: 00 09-12 20:34 :00 No [id number] 1mL [facility] bupivacaine (preserv free) (SENSORCAIN E MPF) 0.25 % (2.5 mg/mL) injection 4 mL 09-12 20:30: 00 09-12 20:33 :00 No [id number] 4mL [facility] iohexoL (OMNIPAQUE 300-50 mL)) injection 1 mL 09-12 20:30: 00 09-12 20:33 :00 No [id number] [facility] midazolam (VERSED) injection 09-12 20:29: 00 09-12 20:29 :00 No IV Push, TITRATE - FOR PROCEDURE USE, 1 dose, Starting on Sun09/12/23 at 1429, Until Sun09/12/23 at 1429, Routine [facility] lactated ringers IV infusion 500 mL 09-12 20:15: 00 09-12 20:25 :00 No [id number] 500mL [facility] celecoxib 100 mg capsule 08-24 00:00: 00 Yes [id number] TAKE 1 CAPSULE BY MOUTH IN THE MORNING AND 1 IN THE EVENING WITH MEALS [facility] PROMETHAZIN E 12.5 mg tablet 08-24 00:00: 00 09-21 00:00 :00 No [id number] TAKE 2 TABLETS BY MOUTH EVERY 6 HOURS NEEDED FOR NAUSEA AND VOMITING [facility] PROMETHAZIN E 12.5 mg tablet 2022-08 00:00: 00 Yes [id number] TAKE 2 TABLETS BY MOUTH EVERY 6 HOURS NEEDED FOR NAUSEA AND VOMITING [facility] tirzepatide (MOUNJARO) 10 mg/0.5 mL PnIj 2022-08 00:00: 00 10-14 00:00 :00 No [id number] 10mg inject 10 mg under the skin weekly. [facility] glyBURIDE 5 mg tablet 2022-08-16 00:00: 00 10-14 00:00 :00 No [id number] TAKE 1 TABLET BY MOUTH TWICE DAILY . APPOINTMEN T REQUIRED FOR FUTURE REFILLS [facility] PROMETHAZIN E 12.5 mg tablet 2022-08-14 00:00: 00 08-09 00:00 :00 No [id number] TAKE 2 TABLETS BY MOUTH EVERY 6 HOURS NEEDED FOR NAUSEA AND VOMITING [facility] GABAPENTIN 600 mg tablet 2022-08- 00:00: 00 Yes [id number] 600mg TAKE 1 TABLET BY MOUTH IN THE MORNING AND 1 IN THE EVENING [facility] empaglifloz in (JARDIANCE) 25 mg Tab 2022-08 0-30 00:00: 00 10-14 00:00 :00 No [id number] 25mg Take 1 tablet by mouth every morning. [facility] metFORMIN 1,000 mg tablet 2022-08 0-30 00:00: 00 10-14 00:00 :00 No [id number] 1000mg Take 1 tablet by mouth in the morning and 1 tablet in the evening. Take with meals. [facility] pioglitazon e 30 mg tablet 2022-08 0-30 00:00: 00 10-14 00:00 :00 No [id number] 30mg Take 1 tablet by mouth in the morning. [facility] tirzepatide (MOUNJARO) 10 mg/0.5 mL PnIj 2022-08 0-30 00:00: 00 07-20 00:00 :00 No [id number] 10mg inject 10 mg under the skin weekly. [facility] atorvastati n 20 mg tablet 2022-08 0-25 00:00: 00 Yes [id number] 20mg Take 1 tablet by mouth at bedtime. [facility] meclizine 25 mg tablet 2022-08 0-25 00:00: 00 09-21 00:00 :00 No [id number] TAKE 1 TABLET BY MOUTH EVERY 8 HOURS NEEDED [facility] PROMETHAZIN E 12.5 mg tablet 2022-08 0-20 00:00: 00 06-26 00:00 :00 No [id number] TAKE 2 TABLETS BY MOUTH EVERY 6 HOURS NEEDED FOR NAUSEA AND VOMITING [facility] lidocaine 1% (PF) (XYLOCAINE) injection 10 mL 05-11 19:45: 00 05-11 18:46 :00 No [id number] 10mL [facility] bupivacaine (preserv free) (SENSORCAIN E MPF) 0.25 % (2.5 mg/mL) injection 4 mL 05-11 19:45: 00 05-11 18:46 :00 No [id number] 4mL [facility] triamcinolo ne acetonide (KENALOG) injection 40 mg 05-11 19:30: 00 05-11 18:47 :00 No [id number] 40mg [facility] FENTanyl PF (SUBLIMAZE (PF)) injection 05-11 18:56: 34 05-11 18:56 :34 No Slow IV Push, TITRATE - FOR PROCEDURE USE, 1 dose, Starting on Sun05/11/23 at 1356, Until Sun05/11/23 at 1356, Routine [facility] FENTanyl PF (SUBLIMAZE (PF)) injection 05-11 18:45: 00 05-11 18:45 :00 No Slow IV Push, TITRATE - FOR PROCEDURE USE, 1 dose, Starting on Sun05/11/23 at 1345, Until Sun05/11/23 at 1345, Routine [facility] FENTanyl PF (SUBLIMAZE (PF)) injection 05-11 18:43: 00 05-11 18:43 :00 No Slow IV Push, TITRATE - FOR PROCEDURE USE, 1 dose, Starting on Sun05/11/23 at 1343, Until Sun05/11/23 at 1343, Routine [facility] midazolam (VERSED) injection 05-11 18:38: 00 05-11 18:38 :00 No IV Push, TITRATE - FOR PROCEDURE USE, 1 dose, Starting on Sun05/11/23 at 1338, Until Sun05/11/23 at 1338, Routine [facility] ondansetron (ZOFRAN (PF)) injection 05-11 18:37: 00 05-11 18:37 :00 No TITRATE - FOR PROCEDURE USE, 1 dose, Starting on Sun05/11/23 at 1337, Until Sun05/11/23 at 1337, Routine [facility] lactated ringers IV infusion 500 mL 05-11 18:15: 00 05-11 18:15 :00 No [id number] 500mL [facility] fluconazole 200 mg tablet 05-08 00:00: 00 Yes [id number] 200mg Take 1 tablet by mouth every 3 (three) days. [facility] ampicillin 500 mg capsule 05-08 00:00: 05-16 04:59 :00 No [id number] 500mg Take 1 capsule by mouth every 6 (six) hours for 7 days. [facility] glyBURIDE 5 mg tablet 05-07 00:00: 00 06-11 00:00 :00 No [id number] TAKE 1 TABLET BY MOUTH TWICE DAILY . APPOINTMEN T REQUIRED FOR FUTURE REFILLS [facility] NOVOLIN N NPH U-100 INSULIN 100 unit/mL injection 05-03 00:00: 00 10-14 00:00 :00 No [id number] INJECT 10 UNITS UNDER THE SKIN IN THE MORNING. INJECT ONLY IF FASTING BLOOD SUGAR GREATER THAN 150 [facility] PROMETHAZIN E 12.5 mg tablet 04-10 00:00: 00 06-01 00:00 :00 No [id number] TAKE 2 TABLETS BY MOUTH EVERY 6 HOURS NEEDED FOR NAUSEA AND VOMITING [facility] [facility] lact[facility] IV infusion 1,000 mL 04-09 14:45: 00 Yes 1000mL at 100 mL/hr, 1,000 mL, IV Infusion, CONTINUOUS , Starting on Sun04/09/23 at 0945, Until Discontinu ed, Routine, PACU [facility] ondansetron (ZOFRAN (PF)) injection 4 mg 04-09 14:30: 37 Yes 4mg 4 mg, Slow IV Push, PRN, 1 dose, Starting on Sun04/09/23 at 0930, Until Discontinu ed, Routine, Nausea and Vomiting (N/V), PACU [facility] lactated ringers IV infusion 04-09 13:54: 00 04-09 14:16 :45 No IV Infusion, CONTINUOUS PRN, Starting on Sun04/09/23 at 0854, Until Sun04/09/23 at 0916, Routine, Intra-op [facility] propofoL IV infusion 04-09 13:54: 00 04-09 14:16 :45 No IV Infusion, ONCE INTRA PROCEDURE, Starting on Sun04/09/23 at 0854, Until Sun04/09/23 at 0916, Routine, Intra-op [facility] lidocaine 2% (XYLOCAINE) 20 mg/mL (2 %) injection 04-09 13:54: 00 04-09 14:16 :45 No Intravenou s, ONCE INTRA PROCEDURE, Starting on Sun04/09/23 at 0854, Until Sun04/09/23 at 0916, Routine, Intra-op [facility] midazolam (VERSED) injection 04-09 13:54: 00 04-09 14:16 :45 No IV Push, ONCE INTRA PROCEDURE, Starting on Sun04/09/23 at 0854, Until Sun04/09/23 at 0916, Routine, Intra-op [facility] lactated ringers IV infusion 1,000 mL 04-09 12:45: 00 04-09 13:04 :00 No 1000mL at 42 mL/hr, 1,000 mL, IV Infusion, ONCE, 1 dose, On Sun04/09/23 at 0745, Routine, Endo Pre-op [facility] semaglutide (OZEMPIC) 2 mg/dose (8 mg/3 mL) PnIj 04-03 00:00: 00 06-11 00:00 :00 No [id number] INJECT TWO (2) MG UNDER THE SKIN ONCE WEEKLY. [facility] NOVOLIN N NPH U-100 INSULIN 100 unit/mL injection 03-27 00:00: 00 05-03 00:00 :00 No [id number] INJECT 10 UNITS UNDER THE SKIN IN THE MORNING. INJECT ONLY IF FASTING BLOOD SUGAR GREATER THAN 150 [facility] JARDIANCE 25 mg Tab 03-14 00:00: 00 06-11 00:00 :00 No [id number] TAKE 1 TABLET BY MOUTH ONCE DAILY IN THE MORNING [facility] metformin ER 500 mg 24 hr tablet 03-14 00:00: 00 06-11 00:00 :00 No [id number] TAKE 2 TABLETS BY MOUTH IN THE MORNING AND TAKE 3 TABLETS IN THE EVENING( NEEDS APPOINTMEN T) [facility] [employer] Kit 03-13 00:00: 00 Yes [id number] Use as directed [facility] tiZANidine 4 mg tablet 03-13 00:00: 00 Yes [id number] Take 1 tablet morning and afternoon, 2 tablets at bedtime [facility] gabapentin 800 mg tablet 03-13 00:00: 00 Yes [id number] 800mg Take 1 tablet by mouth at bedtime. [facility] celecoxib 100 mg capsule 03-13 00:00: 00 08-24 00:00 :00 No [id number] 100mg Take 1 capsule by mouth in the morning and 1 capsule in the evening. Take with meals. [facility] gabapentin 600 mg tablet 03-13 00:00: 00 06-15 00:00 :00 No [id number] 600mg Take 1 tablet by mouth in the morning and 1 tablet in the evening. [facility] NuvaRing 0.12-0.015 mg/24 hr vaginal insert 03-08 00:00: 00 09-10 00:00 :00 No [id number] 1{each} Insert 1 Each into vagina once every month. Insert vaginally and leave in place for 3 consecutiv e weeks, then remove for 1 week. [facility] escitalopra m oxalate (LEXAPRO) 20 mg tablet 03-06 00:00: 00 11-05 00:00 :00 No [id number] 20mg Take 1 tablet by mouth in the morning. [facility] meclizine 25 mg tablet 03-06 00:00: 00 06-06 00:00 :00 No [id number] TAKE 1 TABLET BY MOUTH EVERY 8 HOURS NEEDED [facility] atorvastati n 20 mg tablet 03-06 00:00: 00 06-06 00:00 :00 No [id number] 20mg Take 1 tablet by mouth at bedtime. [facility] proMETHazin e 12.5 mg tablet 03-06 00:00: 00 04-10 00:00 :00 No [id number] TAKE 2 TABLETS BY MOUTH EVERY 6 HOURS NEEDED FOR NAUSEA AND VOMITING [facility] semaglutide (OZEMPIC) 2 mg/dose (8 mg/3 mL) PnIj 03-06 00:00: 00 04-03 00:00 :00 No [id number] INJECT 2 MG UNDER THE SKIN WEEKLY [facility] OZEMPIC 2 mg/dose (8 mg/3 mL) Ij 02-27 00:00: 00 03-06 00:00 :00 No [id number] INJECT 2 MG UNDER THE SKIN WEEKLY [facility] NuvaRing 0.12-0.015 mg/24 hr vaginal insert 02-05 00:00: 00 03-08 00:00 :00 No [id number] 1{each} Insert 1 Each into vagina once every month. Insert vaginally and leave in place for 3 consecutiv e weeks, then remove for 1 week. [facility] tiZANidine 4 mg tablet 01-31 00:00: 00 03-13 00:00 :00 No [id number] 9100 Take 1 tablet by mouth three times daily as needed for muscle spasm [facility] gabapentin 600 mg tablet 01-30 00:00: 00 03-13 00:00 :00 No [id number] 600mg Take 1 tablet by mouth in the morning and 1 tablet at noon and 1 tablet in the evening. [facility] insulin NPH (NOVOLIN N NPH U-100 INSULIN) 100 unit/mL injection 01-27 00:00: 00 Yes [id number] 10U inject 10 Units under the skin in the morning. Inject only if fasting BG >150 [facility] glyBURIDE 5 mg tablet 01-25 00:00: 00 05-07 00:00 :00 No [id number] TAKE 1 TABLET BY MOUTH TWICE DAILY (NEEDS FOLLOW UP VISIT FOR FURTHER REFILLS [facility] PROMETHAZIN E 12.5 mg tablet 01-25 00:00: 00 03-06 00:00 :00 No [id number] TAKE 2 TABLETS BY MOUTH EVERY 6 HOURS NEEDED FOR NAUSEA AND VOMITING [facility] lidocaine HCL (ASPERCREME , LIDOCAINE HCL,) 4 % Crea 01-19 00:00: 00 Yes [id number] 1{each} Apply 1 Each to area(s) in the morning and 1 Each in the evening. [facility] pantoprazol e 40 mg EC tablet 01-01 00:00: 00 Yes [id number] 40mg Take 1 tablet by mouth in the morning. [facility] OZEMPIC 2 mg/dose (8 mg/3 mL) PnIj 12-27 00:00: 00 02-27 00:00 :00 No INJECT 2 MG UNDER THE SKIN WEEKLY [facility] metformin ER 500 mg 24 hr tablet 12-26 00:00: 00 01-19 00:00 :00 No TAKE 2 TABLETS BY MOUTH IN THE MORNING AND TAKE 3 TABLETS IN THE EVENING( NEEDS APPOINTMEN T) [facility] JARDIANCE 25 mg Tab 12-12 00:00: 00 03-14 00:00 :00 No [id number] TAKE 1 TABLET BY MOUTH ONCE DAILY IN THE MORNING [facility] meloxicam 15 mg tablet 12-12 00:00: 00 03-13 00:00 :00 No [id number] 15mg Take 1 tablet by mouth in the morning. [facility] triamcinolo ne acetonide (KENALOG) injection 80 mg 12-11 17:00: 12-11 15:56 :00 No [id number] 80mg [facility] sodium bicarbonate 1 mEq/mL (8.4 %) injection 0.5 mL 12-11 17:00: 00 12-11 15:55 :00 No [id number] .5mL [facility] lidocaine 1% (PF) (XYLOCAINE) injection 10 mL 12-11 17:00: 00 12-11 15:55 :00 No [id number] 10mL [facility] NaCl 0.9% (NS) injection 10 mL 12-11 16:45: 00 12-11 15:55 :00 No [id number] 10mL [facility] NaCl 0.9% (NS) IV infusion 250 mL 12-11 15:30: 00 12-11 15:11 :00 No [id number] 250mL [facility] meclizine 25 mg tablet 12-07 00:00: 00 03-06 00:00 :00 No [id number] TAKE 1 TABLET BY MOUTH EVERY 8 HOURS NEEDED [facility] ONDANSETRON HCL ORAL 11-29 11:48: 30 11-29 00:00 :00 No Take by mouth. [facility] fluticasone propionate 50 mcg/actuati on nasal spray 11-29 00:00: 00 Yes [id number] 1{spray } Use 1 [place] in each nostril in the morning. [facility] proMETHazin e 12.5 mg tablet 11-07 00:00: 00 01-25 00:00 :00 No [id number] 25mg Take 2 tablets by mouth every 6 (six) hours as needed for Nausea and Vomiting (N/V). [facility] semaglutide (OZEMPIC) 1 mg/dose (4 mg/3 mL) PnIj 20 00:00: 00 01-19 00:00 :00 No [id number] 1mg inject 1 mg under the skin weekly. [facility] albuterol 90 mcg/actuati on inhaler 16 00:00: 00 Yes [id number] 2{puff} Inhale 2 Puffs every 6 (six) hours as needed for Wheezing or Shortness of Breath. [facility] glyBURIDE 5 mg tablet 16 00:00: 00 01-24 00:00 :00 No [id number] TAKE 1 TABLET BY MOUTH TWICE DAILY (NEEDS FOLLOW UP VISIT FOR FURTHER REFILLS [facility] gabapentin 600 mg tablet 3-14 00:00: 00 01-30 00:00 :00 No [id number] 600mg Take 1 tablet by mouth in the morning and 1 tablet at noon and 1 tablet in the evening. [facility] Butalbital- Acetaminoph en-Caff 50-300-40 mg per capsule - 00:00: 00 Yes TAKE 1 CAPSULE BY MOUTH EVERY 6 HOURS NEEDED [facility] ondansetron 4 mg tablet 10-04 00:00: 00 Yes TAKE 1 TABLET BY MOUTH EVERY 12 HOURS NEEDED [facility] meclizine 25 mg tablet 10-04 00:00: 00 12-07 00:00 :00 No TAKE 1 TABLET BY MOUTH EVERY 8 HOURS NEEDED [facility] escitalopra m oxalate (LEXAPRO) 20 mg tablet 10-03 00:00: 00 03-06 00:00 :00 No [id number] 20mg Take 1 tablet by mouth in the morning. [facility] tiZANidine 4 mg tablet 10-02 00:00: 00 01-31 00:00 :00 No [id number] 9100 4mg Take 1 tablet by mouth 3 (three) times daily as needed (muscle spasm). [facility] atorvastati n 20 mg tablet 09-21 00:00: 00 03-06 00:00 :00 No [id number] 20mg Take 1 tablet by mouth at bedtime. [facility] busPIRone 5 mg tablet 09-21 00:00: 00 11-10 00:00 :00 No [id number] 5mg Take 1 tablet by mouth 2 (two) times daily as needed (anxiety). [facility] bupivacaine (preserv free) (SENSORCAIN E MPF) 0.25 % (2.5 mg/mL) injection 4 mL 09-15 17:15: 00 09-15 17:19 :00 No [id number] 4mL [facility] lidocaine 1% (PF) (XYLOCAINE) injection 14 mL 09-15 17:15: 00 09-15 17:06 :00 No [id number] 14mL [facility] triamcinolo ne acetonide (KENALOG) injection 80 mg 09-15 17:15: 00 09-15 17:12 :00 No [id number] 80mg [facility] lactated ringers IV infusion 500 mL 09-15 16:45: 00 09-15 17:06 :00 No [id number] 500mL [facility] meloxicam 15 mg tablet 09-15 00:00: 00 10-26 00:00 :00 No [id number] 15mg Take 1 tablet by mouth in the morning. [facility] pioglitazon e 30 mg tablet 09-13 00:00: 06-11 00:00 :00 No [id number] 30mg Take 1 tablet by mouth in the morning. [facility] metFORMIN 1,000 mg tablet 09-13 00:00: 06-11 00:00 :00 No [id number] 1000mg Take 1 tablet by mouth in the morning and 1 tablet in the evening. Take with meals. [facility] semaglutide (OZEMPIC) 1 mg/dose (4 mg/3 mL) Ij 09-13 00:00: 00 10-26 00:00 :00 No [id number] 1mg inject 1 mg under the skin weekly. [facility] tirzepatide (MOUNJARO) 2.5 mg/0.5 mL PnIj 09-13 00:00: 00 09-13 00:00 :00 No [id number] 2.5mg inject 2.5 mg under the skin weekly. [facility] ONDANSETRON HCL ORAL 1-31 09:40: 30 Yes Take by mouth. [facility] LORazepam (ATIVAN) tablet 1 mg - 20:15: 00 08-16 19:20 :00 No [id number] 1mg 1 mg, Oral, ONCE, 1 dose, On Sun08/16/22 at 1415, Routine [facility] JARDIANCE 25 mg Tab 08-16 00:00: 00 12-12 00:00 :00 No [id number] TAKE 1 TABLET BY MOUTH ONCE DAILY IN THE MORNING [facility] PROMETHAZIN E 12.5 mg tablet 08-16 00:00: 00 11-07 00:00 :00 No [id number] TAKE 2 TABLETS BY MOUTH EVERY 6 HOURS NEEDED FOR VERTIGO [facility] HYDROXYZINE 25 mg tablet 08-16 00:00: 00 09-21 00:00 :00 No [id number] TAKE 1 TABLET BY MOUTH EVERY 8 HOURS NEEDED FOR ITCHING [facility] fluconazole 200 mg tablet 2021-08 00:00: 00 12-28 00:00 :00 No [id number] 200mg Take 1 tablet by mouth in the morning. [facility] terconazole 0.4 % vaginal cream 2021-08 00:00: 00 08-02 00:00 :00 No [id number] 1{appli cator} Insert 1 Applicator into vagina at bedtime. [facility] NuvaRing 0.12-0.015 mg/24 hr vaginal insert 2021-08 00:00: 00 02-05 00:00 :00 No [id number] 1{each} Insert 1 Each into vagina once every month. Insert vaginally and leave in place for 3 consecutiv e weeks, then remove for 1 week. [facility] lactated ringers IV infusion 500 mL 2021-08 21:45: 00 06-30 20:39 :00 No [id number] 500mL [facility] lidocaine 1% (PF) (XYLOCAINE) injection 10 mL 2021-08 20:37: 00 06-30 20:37 :00 No [id number] 10mL [facility] triamcinolo ne acetonide (KENALOG) injection 80 mg 2021-08 20:37: 00 06-30 20:38 :00 No [id number] 80mg [facility] bupivacaine (preserv free) (SENSORCAIN E MPF) 0.25 % (2.5 mg/mL) injection 4 mL 2021-08 20:36: 00 06-30 20:38 :00 No [id number] 4mL [facility] HYDROXYZINE 25 mg tablet 2021-08 00:00: 00 08-16 00:00 :00 No [id number] TAKE 1 TABLET BY MOUTH EVERY 8 HOURS NEEDED FOR ITCHING [facility] PROMETHAZIN E 12.5 mg tablet 2021-08 00:00: 00 07-17 00:00 :00 No [id number] TAKE 1 TABLET BY MOUTH ONCE DAILY NEEDED FOR NAUSEA AND VOMITING [facility] proMETHazin e 12.5 mg tablet 2021-08 0-10 00:00: 00 06-28 00:00 :00 No [id number] 12.5mg Take 1 tablet by mouth once daily as needed for Nausea and Vomiting (N/V). [facility] gabapentin 400 mg capsule 2021-08 0-04 00:00: 00 10-24 00:00 :00 No [id number] 9100 400mg Take 1 capsule by mouth in the morning and 1 capsule at noon and 1 capsule in the evening. [facility] tiZANidine 4 mg tablet 2021-08 0-04 00:00: 00 10-01 00:00 :00 No [id number] 9100 4mg Take 1 tablet by mouth 3 (three) times daily as needed (muscle spasm). [facility] meloxicam 15 mg tablet 2021-08 0-04 00:00: 00 09-15 00:00 :00 No [id number] 15mg Take 1 tablet by mouth in the morning. [facility] metformin ER 500 mg 24 hr tablet 04-21 00:00: 00 09-13 00:00 :00 No [id number] TAKE 2 TABLETS BY MOUTH ONCE DAILY IN THE MORNING AND 3 ONCE DAILY IN THE EVENING. [facility] dulaglutide (TRULICITY) 0.75 mg/0.5 mL PnIj 04-21 00:00: 00 09-13 00:00 :00 No [id number] .75mg inject 1 Pen under the skin weekly. [facility] hydrOXYzine 25 mg tablet 04-21 00:00: 00 06-28 00:00 :00 No [id number] 25mg Take 1 tablet by mouth every 8 (eight) hours as needed for Itching. [facility] insulin NPH (NOVOLIN N NPH U-100 INSULIN) 100 unit/mL injection 04-18 00:00: 00 09-13 00:00 :00 No [id number] INJECT 20 UNITS SUBCUTANEO USLY ONCE DAILY WITH BREAKFAST [facility] insulin regular human (NOVOLIN R REGULAR U-100 INSULN) 100 unit/mL injection 04-18 00:00: 00 09-13 00:00 :00 No [id number] INJECT 15 UNITS SUBCUTANEO USLY THREE TIMES DAILY BEFORE MEAL(S) [facility] ondansetron 4 mg disintegrat ing tablet 04-18 00:00: 00 07-17 00:00 :00 No [id number] DISSOLVE 1 TABLET IN MOUTH EVERY 8 HOURS NEEDED FOR NAUSEA AND VOMITING FOR UP TO 4 DAYS [facility] gabapentin 400 mg capsule 04-18 00:00: 00 05-16 00:00 :00 No [id number] 400mg Take 1 capsule by mouth in the morning and 1 capsule at noon and 1 capsule in the evening. [facility] PROMETHAZIN E 12.5 mg tablet 15 00:00: 00 05-22 00:00 :00 No [id number] TAKE 2 TABLETS BY MOUTH EVERY 6 HOURS NEEDED FOR VERTIGO [facility] glyBURIDE 5 mg tablet 01-16 00:00: 00 10-26 00:00 :00 No [id number] TAKE 1 TABLET BY MOUTH TWICE DAILY WITH MEALS (NEEDS FOLLOW UP VISIT FOR FURTHER REFILLS) [facility] escitalopra m oxalate (LEXAPRO) 20 mg tablet 01-16 00:00: 00 10-03 00:00 :00 No [id number] 20mg Take 1 tablet by mouth daily. [facility] atorvastati n 20 mg tablet 01-16 00:00: 00 09-21 00:00 :00 No [id number] 20mg Take 1 tablet by mouth at bedtime. [facility] empaglifloz in (JARDIANCE) 25 mg Tab 01-16 00:00: 00 08-16 00:00 :00 No [id number] 25mg Take 1 tablet by mouth every morning. [facility] NUVARING (NUVARING) 0.12-0.015 mg/24 hr vaginal insert 01-16 00:00: 07-04 00:00 :00 No [id number] 1{each} Insert 1 Each into vagina once every month. Insert vaginally and leave in place for 3 consecutiv e weeks, then remove for 1 week. [facility] MELOXICAM 15 mg tablet 5-25 00:00: 00 05-16 00:00 :00 No [id number] Take 1 tablet by mouth once daily [facility] GLYBURIDE 5 mg tablet 5-25 00:00: 01-16 00:00 :00 No [id number] TAKE 1 TABLET BY MOUTH TWICE DAILY WITH MEALS (NEEDS FOLLOW UP VISIT FOR FURTHER REFILLS) [facility] HYDROXYZINE 25 mg tablet 5-25 00:00: 00 01-11 00:00 :00 No [id number] TAKE 1 TABLET BY MOUTH EVERY 8 HOURS NEEDED FOR ANXIETY [facility] semaglutide (OZEMPIC) 1 mg/dose (2 mg/1.5 mL) PnIj 4-19 00:00: 00 01-16 00:00 :00 No [id number] 1mg inject 1 mg under the skin weekly. [facility] tiZANidine 4 mg tablet 4-12 00:00: 00 05-16 00:00 :00 No 4mg Take 1 tablet by mouth 3 (three) times daily as needed (muscle spasm). [facility] oxyCODONE 5 mg immediate release tablet 4-12 00:00: 00 04-18 00:00 :00 No [id number] 5mg Take 1 tablet by mouth every 6 (six) hours as needed for Pain (scale 7-10). Indication s: acute pain [facility] PROMETHAZIN E 12.5 mg tablet 3-14 00:00: 00 01-16 00:00 :00 No [id number] TAKE 2 TABLETS BY MOUTH EVERY 6 HOURS NEEDED FOR VERTIGO [facility] ONDANSETRON 4 mg disintegrat ing tablet 2-15 00:00: 00 04-18 00:00 :00 No [id number] DISSOLVE 1 TABLET IN MOUTH EVERY 8 HOURS NEEDED FOR NAUSEA AND VOMITING FOR UP TO 4 DAYS [facility] insulin NPH (NOVOLIN N NPH U-100 INSULIN) 100 unit/mL injection 1-25 00:00: 00 04-18 00:00 :00 No [id number] INJECT 20 UNITS SUBCUTANEO USLY ONCE DAILY WITH BREAKFAST [facility] escitalopra m oxalate (LEXAPRO) 20 mg tablet 1-25 00:00: 00 01-16 00:00 :00 No [id number] 20mg Take 1 tablet by mouth daily. [facility] NOVOLIN R REGULAR U-100 INSULN 100 unit/mL solution 1-21 00:00: 00 04-18 00:00 :00 No [id number] INJECT 15 UNITS SUBCUTANEO USLY THREE TIMES DAILY BEFORE MEAL(S) [facility] MONTELUKAST 10 mg tablet 1-03 00:00: 00 07-17 00:00 :00 No [id number] Take 1 tablet by mouth once daily [facility] NUVARING (NUVARING) 0.12-0.015 mg/24 hr vaginal insert 2020-08 00:00: 00 01-16 00:00 :00 No [id number] 1{each} Insert 1 Each into vagina once every month. Insert vaginally and leave in place for 3 consecutiv e weeks, then remove for 1 week. [facility] metformin ER 500 mg 24 hr tablet 2020-08 00:00: 00 01-16 00:00 :00 No [id number] TAKE 2 TABLETS BY MOUTH ONCE DAILY IN THE MORNING AND 3 ONCE DAILY IN THE EVENING. Needs follow up visit for further refills [facility] atorvastati n 20 mg tablet 2020-08 00:00: 00 01-16 00:00 :00 No [id number] 20mg Take 1 tablet by mouth at bedtime. [facility] Guaifenesin 200 mg/5 mL Liqd 2020-08 00:00: 00 07-17 00:00 :00 No [id number] 5 ml po q 6 h prn cough [facility] mupirocin 2 % ointment 2020-08 0 00:00: 00 07-17 00:00 :00 No [id number] Apply to area(s) 3 (three) times daily. [facility] empaglifloz in (JARDIANCE) -13 00:00: 00 01-16 00:00 :00 No [id number] 10mg Take 1 tablet by mouth daily. [facility] albuterol 90 mcg/actuati on inhaler 7- 00:00: 00 11-29 00:00 :00 No [id number] 2{puff} Inhale 2 Puffs every 6 (six) hours as needed for Wheezing or Shortness of Breath. [facility] hydrOXYzine 25 mg tablet 6-03 00:00: 00 06-02 00:00 :00 No [id number] 25mg Take 1 tablet by mouth every 6 (six) hours. TAKE 1-2 TABS PO Q6 HOURS PRN FOR ANXIETY [facility] metformin ER 500 mg 24 hr tablet 01-04 00:00: 00 06-27 00:00 :00 No [id number] TAKE 2 TABLETS BY MOUTH ONCE DAILY IN THE MORNING AND 3 ONCE DAILY IN THE EVENING. Needs follow up visit for further refills [facility] atorvastati n 20 mg tablet 01-04 00:00: 00 06-27 00:00 :00 No [id number] 20mg Take 1 tablet by mouth at bedtime. [facility] ondansetron (ZOFRAN ODT) 4 mg disintegrat ing tablet 12-30 00:00: 00 09-27 00:00 :00 No [id number] 4mg Take 1 tablet by mouth every 8 (eight) hours as needed for Nausea and Vomiting (N/V) for up to 4 days. [facility] hydrocortis one-pramovi ne rectal foam 12-13 00:00: 00 07-17 00:00 :00 No [id number] 1{appli cator} Insert 1 Applicator into rectum 2 (two) times daily. [facility] insulin NPH (NOVOLIN N NPH U-100 INSULIN) 100 unit/mL injection 10-13 00:00: 00 09-06 00:00 :00 No [id number] INJECT 20 UNITS SUBCUTANEO USLY ONCE DAILY WITH BREAKFAST [facility] insulin regular human (NOVOLIN R REGULAR U-100 INSULN) 100 unit/mL injection - 00:00: 00 09-02 00:00 :00 No [id number] 15U inject 15 Units under the skin 3 (three) times daily before meals. [facility] glyBURIDE 5 mg tablet 3-03 00:00: 00 06-27 00:00 :00 No [id number] 5mg Take 1 tablet by mouth 2 (two) times daily with meals. Needs follow up visit for further refills [facility] Insulin Syringe-Nee dle U-100 1 mL 31 gauge x 5/16 Syrg 2019-08 00:00: 07-17 00:00 :00 No Use as directed [facility] Insulin Syringe-Nee dle U-100 1 mL 31 gauge x 5/16 Syrg 2019-08 00:00: 07-17 00:00 :00 No Use as directed [facility] hydrocortis one (ANUSOL-HC) 25 mg suppository 2019-08 00:00: 06-14 05:59 :00 No [id number] 25mg Insert 1 Suppositor y into rectum 2 (two) times daily for 10 days. [facility] escitalopra m oxalate (LEXAPRO) 5 mg tablet 2019-08 00:00: 12-31 00:00 :00 No [id number] 5mg Take 1 tablet by mouth daily. [facility] metformin ER 500 mg 24 hr tablet 2019-08 00:00: 10-13 00:00 :00 No [id number] TAKE 2 TABLETS BY MOUTH ONCE DAILY IN THE MORNING AND 3 ONCE DAILY IN THE EVENING. Needs follow up visit for further refills [facility] glyBURIDE 5 mg tablet 2019-08 00:00: 06-22 00:00 :00 No [id number] 5mg Take 1 tablet by mouth 2 (two) times daily with meals. Needs follow up visit for further refills [facility] insulin NPH (NOVOLIN N NPH U-100 INSULIN) 100 unit/mL injection 2019-08 00:00: 00 06-22 00:00 :00 No [id number] USE 10 UNITS UNDER THE SUBCUTANEO USLY DAILY WITH BREAKFAST [facility] insulin regular human (NOVOLIN R REGULAR U-100 INSULN) 100 unit/mL injection 2019-08 00:00: 06-22 00:00 :00 No [id number] INJECT 10 UNITS SUBCUTANEO USLY WITH BREAKFAST [facility] hydrOXYzine 25 mg tablet 2019-08 00:00: 06-22 00:00 :00 No [id number] 25mg Take 1 tablet by mouth every 6 (six) hours. TAKE 1-2 TABS PO Q6 HOURS PRN FOR ANXIETY [facility] ondansetron 8 mg disintegrat ing tablet 05-09 00:00: 07-13 00:00 :00 No [id number] 8mg Take 1 tablet by mouth every 8 (eight) hours as needed for Nausea and Vomiting (N/V). [facility] hydrocortis one 2.5 % rectal cream 05-09 00:00: 07-13 00:00 :00 No [id number] Insert into rectum 2 (two) times daily. [facility] diphenoxyla te-atropine 2.5-0.025 mg tablet 05-09 00:00: 07-13 00:00 :00 No [id number] 1{tbl} Take 1 tablet by mouth every 6 (six) hours as needed (diarrhea) . [facility] sulindac 200 mg tablet 2-04 00:0007-13 00:00 :00 No [id number] 200mg Take 1 tablet by mouth 2 (two) times daily. [facility] bromphenira mine-pseudo ephedrine-D M (BROMFED DM) 2-30-10 mg/5 mL syrup 1-07 00:0007-13 00:00 :00 No [id number] 5mL Take 5 mL by mouth 4 (four) times daily as needed for Congestion /Allergies or Cold symptoms. [facility] diclofenac 50 mg tablet 1-02 00:00: 07-13 00:00 :00 No [id number] 50mg Take 1 tablet by mouth 3 (three) times daily. [facility] proMETHazin e 25 mg tablet 2018-08 2-05 00:00: 07-13 00:00 :00 No [id number] 25mg Take 1 tablet by mouth every 6 (six) hours as needed for Nausea and Vomiting (N/V). [facility] albuterol 90 mcg/actuati on inhaler 2017-08 00:00: 00 07-13 00:00 :00 No 2{puff} Inhale 2 Puffs every 4 (four) hours as needed for Wheezing or Shortness of Breath. [facility] fluticasone 50 mcg/actuati on nasal spray 2017-08 00:00: 00 07-13 00:00 :00 No 1{spray } Use 1 [place] in each nostril daily. [facility] ibuprofen 800 mg tablet 2017-08 00:00: 00 07-13 00:00 :00 No 800mg Take 1 tablet by mouth every 6 (six) hours as needed for Pain (scale 4-6). [facility] Breast Pump Lisa 04-13 00:00: 00 07-13 00:00 :00 No Use as directed [facility] blood sugar diagnostic (ONETOUCH ULTRA TEST) strip 8-22 00:00: 00 07-13 00:00 :00 No Please, dispense test strips for checking FS x8 times per day [facility] Blood Pressure Monitor (BLOOD PRESSURE KIT) Kit 8-15 00:00: 00 07-13 00:00 :00 No [id number] Use as directed [facility] Lancets (ONETOUCH ULTRASOFT LANCETS) Misc 01-11 00:00: 00 07-13 00:00 :00 No Use as directed [facility] Immunizations Ordered Immunization Name Filled Immunization Name Date Status Comments Source Influenza Virus Vaccine 2022-05-29 00:00:00 Completed [facility] Influenza Virus Vaccine Quad .5 mL IM 6+ MO 2022-05-29 00:00:00 Completed [facility] Influenza Virus Vaccine 2022-05-29 00:00:00 Completed [facility] Influenza Virus Vaccine Quad .5 mL IM 6+ MO 2022-05-29 00:00:00 Completed [facility] Influenza Virus Vaccine 2022-05-29 00:00:00 Completed [facility] Influenza Virus Vaccine Quad .5 mL IM 6+ MO 2022-05-29 00:00:00 Completed [facility] Influenza Virus Vaccine 2022-05-29 00:00:00 Completed [facility] Influenza Virus Vaccine Quad .5 mL IM 6+ MO 2022-05-29 00:00:00 Completed [facility] Influenza Virus Vaccine 2022-05-29 00:00:00 Completed [facility] Influenza Virus Vaccine Quad .5 mL IM 6+ MO 2022-05-29 00:00:00 Completed [facility] Influenza Virus Vaccine 2022-05-29 00:00:00 Completed [facility] Influenza Virus Vaccine Quad .5 mL IM 6+ MO 2022-05-29 00:00:00 Completed [facility] Influenza Virus Vaccine 2022-05-29 00:00:00 Completed [facility] Influenza Virus Vaccine Quad .5 mL IM 6+ MO 2022-05-29 00:00:00 Completed [facility] Influenza Virus Vaccine 2022-05-29 00:00:00 Completed [facility] Influenza Virus Vaccine Quad .5 mL IM 6+ MO 2022-05-29 00:00:00 Completed [facility] Influenza Virus Vaccine 2022-05-29 00:00:00 Completed [facility] Influenza Virus Vaccine Quad .5 mL IM 6+ MO 2022-05-29 00:00:00 Completed [facility] Influenza Virus Vaccine 2022-05-29 00:00:00 Completed [facility] Influenza Virus Vaccine Quad .5 mL IM 6+ MO 2022-05-29 00:00:00 Completed [facility] Influenza Virus Vaccine 2022-05-29 00:00:00 Completed [facility] Influenza Virus Vaccine Quad .5 mL IM 6+ MO 2022-05-29 00:00:00 Completed [facility] Influenza Virus Vaccine 2022-05-29 00:00:00 Completed [facility] Influenza Virus Vaccine Quad .5 mL IM 6+ MO 2022-05-29 00:00:00 Completed [facility] Influenza Virus Vaccine 2022-05-29 00:00:00 Completed [facility] Influenza Virus Vaccine Quad .5 mL IM 6+ MO 2022-05-29 00:00:00 Completed [facility] Influenza Virus Vaccine 2022-05-29 00:00:00 Completed [facility] Influenza Virus Vaccine Quad .5 mL IM 6+ MO 2022-05-29 00:00:00 Completed [facility] Influenza Virus Vaccine 2022-05-29 00:00:00 Completed [facility] Influenza Virus Vaccine Quad .5 mL IM 6+ MO 2022-05-29 00:00:00 Completed [facility] Influenza Virus Vaccine 2022-05-29 00:00:00 Completed [facility] Influenza Virus Vaccine Quad .5 mL IM 6+ MO 2022-05-29 00:00:00 Completed [facility] Influenza Virus Vaccine 2022-05-29 00:00:00 Completed [facility] Influenza Virus Vaccine Quad .5 mL IM 6+ MO 2022-05-29 00:00:00 Completed [facility] Influenza Virus Vaccine 2022-05-29 00:00:00 Completed [facility] Influenza Virus Vaccine Quad .5 mL IM 6+ MO 2022-05-29 00:00:00 Completed [facility] Influenza Virus Vaccine 2022-05-29 00:00:00 Completed [facility] Influenza Virus Vaccine Quad .5 mL IM 6+ MO 2022-05-29 00:00:00 Completed [facility] Influenza Virus Vaccine 2022-05-29 00:00:00 Completed [facility] Influenza Virus Vaccine Quad .5 mL IM 6+ MO 2022-05-29 00:00:00 Completed [facility] Influenza Virus Vaccine 2022-05-29 00:00:00 Completed [facility] Influenza Virus Vaccine Quad .5 mL IM 6+ MO 2022-05-29 00:00:00 Completed [facility] Influenza Virus Vaccine 2022-05-29 00:00:00 Completed [facility] Influenza Virus Vaccine Quad .5 mL IM 6+ MO 2022-05-29 00:00:00 Completed [facility] Influenza Virus Vaccine 2022-05-29 00:00:00 Completed [facility] Influenza Virus Vaccine Quad .5 mL IM 6+ MO 2022-05-29 00:00:00 Completed [facility] Influenza Virus Vaccine 2022-05-29 00:00:00 Completed [facility] Influenza Virus Vaccine Quad .5 mL IM 6+ MO 2022-05-29 00:00:00 Completed [facility] Influenza Virus Vaccine 2022-05-29 00:00:00 Completed [facility] Influenza Virus Vaccine Quad .5 mL IM 6+ MO 2022-05-29 00:00:00 Completed [facility] Influenza Virus Vaccine 2022-05-29 00:00:00 Completed [facility] Influenza Virus Vaccine Quad .5 mL IM 6+ MO 2022-05-29 00:00:00 Completed [facility] Influenza Virus Vaccine 2022-05-29 00:00:00 Completed [facility] Influenza Virus Vaccine Quad .5 mL IM 6+ MO 2022-05-29 00:00:00 Completed [facility] Influenza Virus Vaccine 2022-05-29 00:00:00 Completed [facility] Influenza Virus Vaccine Quad .5 mL IM 6+ MO 2022-05-29 00:00:00 Completed [facility] Influenza Virus Vaccine 2022-05-29 00:00:00 Completed [facility] Influenza Virus Vaccine Quad .5 mL IM 6+ MO 2022-05-29 00:00:00 Completed [facility] Influenza Virus Vaccine 2022-05-29 00:00:00 Completed [facility] Influenza Virus Vaccine Quad .5 mL IM 6+ MO 2022-05-29 00:00:00 Completed [facility] Influenza Virus Vaccine 2022-05-29 00:00:00 Completed [facility] Influenza Virus Vaccine Quad .5 mL IM 6+ MO 2022-05-29 00:00:00 Completed [facility] Influenza Virus Vaccine 2022-05-29 00:00:00 Completed [facility] Influenza Virus Vaccine Quad .5 mL IM 6+ MO 2022-05-29 00:00:00 Completed [facility] Influenza Virus Vaccine 2022-05-29 00:00:00 Completed [facility] Influenza Virus Vaccine Quad .5 mL IM 6+ MO 2022-05-29 00:00:00 Completed [facility] Influenza Virus Vaccine 2022-05-29 00:00:00 Completed [facility] Influenza Virus Vaccine Quad .5 mL IM 6+ MO 2022-05-29 00:00:00 Completed [facility] Influenza Virus Vaccine 2022-05-29 00:00:00 Completed [facility] Influenza Virus Vaccine Quad .5 mL IM 6+ MO 2022-05-29 00:00:00 Completed [facility] Influenza Virus Vaccine 2022-05-29 00:00:00 Completed [facility] Influenza Virus Vaccine Quad .5 mL IM 6+ MO 2022-05-29 00:00:00 Completed [facility] Influenza Virus Vaccine 2022-05-29 00:00:00 Completed [facility] Influenza Virus Vaccine Quad .5 mL IM 6+ MO 2022-05-29 00:00:00 Completed [facility] Influenza Virus Vaccine 2022-05-29 00:00:00 Completed [facility] Influenza Virus Vaccine Quad .5 mL IM 6+ MO 2022-05-29 00:00:00 Completed [facility] Influenza Virus Vaccine 2022-05-29 00:00:00 Completed [facility] Influenza Virus Vaccine Quad .5 mL IM 6+ MO 2022-05-29 00:00:00 Completed [facility] Influenza Virus Vaccine 2022-05-29 00:00:00 Completed [facility] Influenza Virus Vaccine Quad .5 mL IM 6+ MO 2022-05-29 00:00:00 Completed [facility] Influenza Virus Vaccine 2022-05-29 00:00:00 Completed [facility] Influenza Virus Vaccine Quad .5 mL IM 6+ MO 2022-05-29 00:00:00 Completed [facility] Influenza Virus Vaccine 2022-05-29 00:00:00 Completed [facility] Influenza Virus Vaccine Quad .5 mL IM 6+ MO 2022-05-29 00:00:00 Completed [facility] Influenza Virus Vaccine 2022-05-29 00:00:00 Completed [facility] Influenza Virus Vaccine Quad .5 mL IM 6+ MO 2022-05-29 00:00:00 Completed [facility] Influenza Virus Vaccine 2022-05-29 00:00:00 Completed [facility] Influenza Virus Vaccine Quad .5 mL IM 6+ MO 2022-05-29 00:00:00 Completed [facility] Influenza Virus Vaccine 2022-05-29 00:00:00 Completed [facility] Influenza Virus Vaccine Quad .5 mL IM 6+ MO 2022-05-29 00:00:00 Completed [facility] Influenza Virus Vaccine 2022-05-29 00:00:00 Completed [facility] Influenza Virus Vaccine Quad .5 mL IM 6+ MO 2022-05-29 00:00:00 Completed [facility] Influenza Virus Vaccine 2022-05-29 00:00:00 Completed [facility] Influenza Virus Vaccine Quad .5 mL IM 6+ MO 2022-05-29 00:00:00 Completed [facility] Influenza Virus Vaccine 2022-05-29 00:00:00 Completed [facility] Influenza Virus Vaccine Quad .5 mL IM 6+ MO 2022-05-29 00:00:00 Completed [facility] Influenza Virus Vaccine 2022-05-29 00:00:00 Completed [facility] Influenza Virus Vaccine Quad .5 mL IM 6+ MO 2022-05-29 00:00:00 Completed [facility] Influenza Virus Vaccine 2022-05-29 00:00:00 Completed [facility] Influenza Virus Vaccine Quad .5 mL IM 6+ MO 2022-05-29 00:00:00 Completed [facility] Influenza Virus Vaccine 2022-05-29 00:00:00 Completed [facility] Influenza Virus Vaccine Quad .5 mL IM 6+ MO 2022-05-29 00:00:00 Completed [facility] Influenza Virus Vaccine 2022-05-29 00:00:00 Completed [facility] Influenza Virus Vaccine Quad .5 mL IM 6+ MO 2022-05-29 00:00:00 Completed [facility] Influenza Virus Vaccine 2022-05-29 00:00:00 Completed [facility] Influenza Virus Vaccine Quad .5 mL IM 6+ MO 2022-05-29 00:00:00 Completed [facility] Influenza Virus Vaccine 2022-05-29 00:00:00 Completed [facility] Influenza Virus Vaccine Quad .5 mL IM 6+ MO 2022-05-29 00:00:00 Completed [facility] Influenza Virus Vaccine 2022-05-29 00:00:00 Completed [facility] Influenza Virus Vaccine Quad .5 mL IM 6+ MO 2022-05-29 00:00:00 Completed [facility] Influenza Virus Vaccine 2022-05-29 00:00:00 Completed [facility] Influenza Virus Vaccine Quad .5 mL IM 6+ MO 2022-05-29 00:00:00 Completed [facility] Influenza Virus Vaccine 2022-05-29 00:00:00 Completed [facility] Influenza Virus Vaccine Quad .5 mL IM 6+ MO 2022-05-29 00:00:00 Completed [facility] Influenza Virus Vaccine 2022-05-29 00:00:00 Completed [facility] Influenza Virus Vaccine Quad .5 mL IM 6+ MO 2022-05-29 00:00:00 Completed [facility] Influenza Virus Vaccine 2022-05-29 00:00:00 Completed [facility] Influenza Virus Vaccine Quad .5 mL IM 6+ MO 2022-05-29 00:00:00 Completed [facility] Influenza Virus Vaccine 2022-05-29 00:00:00 Completed [facility] Influenza Virus Vaccine Quad .5 mL IM 6+ MO 2022-05-29 00:00:00 Completed [facility] Influenza Virus Vaccine 2022-05-29 00:00:00 Completed [facility] Influenza Virus Vaccine Quad .5 mL IM 6+ MO 2022-05-29 00:00:00 Completed [facility] Influenza Virus Vaccine 2022-05-29 00:00:00 Completed [facility] Influenza Virus Vaccine Quad .5 mL IM 6+ MO 2022-05-29 00:00:00 Completed [facility] Influenza Virus Vaccine 2022-05-29 00:00:00 Completed [facility] Influenza Virus Vaccine Quad .5 mL IM 6+ MO 2022-05-29 00:00:00 Completed [facility] Influenza Virus Vaccine 2022-05-29 00:00:00 Completed [facility] Influenza Virus Vaccine Quad .5 mL IM 6+ MO 2022-05-29 00:00:00 Completed [facility] Influenza Virus Vaccine 2022-05-29 00:00:00 Completed [facility] Influenza Virus Vaccine Quad .5 mL IM 6+ MO 2022-05-29 00:00:00 Completed [facility] Influenza Virus Vaccine 2022-05-29 00:00:00 Completed [facility] Influenza Virus Vaccine Quad .5 mL IM 6+ MO 2022-05-29 00:00:00 Completed [facility] Influenza Virus Vaccine 2022-05-29 00:00:00 Completed [facility] Influenza Virus Vaccine Quad .5 mL IM 6+ MO 2022-05-29 00:00:00 Completed [facility] Influenza Virus Vaccine 2022-05-29 00:00:00 Completed [facility] Influenza Virus Vaccine Quad .5 mL IM 6+ MO 2022-05-29 00:00:00 Completed [facility] Influenza Virus Vaccine 2022-05-29 00:00:00 Completed [facility] Influenza Virus Vaccine Quad .5 mL IM 6+ MO 2022-05-29 00:00:00 Completed [facility] Influenza Virus Vaccine 2022-05-29 00:00:00 Completed [facility] Influenza Virus Vaccine Quad .5 mL IM 6+ MO 2022-05-29 00:00:00 Completed [facility] Influenza Virus Vaccine 2022-05-29 00:00:00 Completed [facility] Influenza Virus Vaccine Quad .5 mL IM 6+ MO 2022-05-29 00:00:00 Completed [facility] Influenza Virus Vaccine 2022-05-29 00:00:00 Completed [facility] Influenza Virus Vaccine Quad .5 mL IM 6+ MO 2022-05-29 00:00:00 Completed [facility] Influenza Virus Vaccine 2022-05-29 00:00:00 Completed [facility] Influenza Virus Vaccine Quad .5 mL IM 6+ MO 2022-05-29 00:00:00 Completed [facility] Influenza Virus Vaccine 2022-05-29 00:00:00 Completed [facility] Influenza Virus Vaccine Quad .5 mL IM 6+ MO 2022-05-29 00:00:00 Completed [facility] Influenza Virus Vaccine 2022-05-29 00:00:00 Completed [facility] Influenza Virus Vaccine Quad .5 mL IM 6+ MO 2022-05-29 00:00:00 Completed [facility] Influenza Virus Vaccine 2022-05-29 00:00:00 Completed [facility] Influenza Virus Vaccine Quad .5 mL IM 6+ MO 2022-05-29 00:00:00 Completed [facility] Influenza Virus Vaccine 2022-05-29 00:00:00 Completed [facility] Influenza Virus Vaccine Quad .5 mL IM 6+ MO 2022-05-29 00:00:00 Completed [facility] Influenza Virus Vaccine 2022-05-29 00:00:00 Completed [facility] Influenza Virus Vaccine Quad .5 mL IM 6+ MO 2022-05-29 00:00:00 Completed [facility] Influenza Virus Vaccine 2022-05-29 00:00:00 Completed [facility] Influenza Virus Vaccine Quad .5 mL IM 6+ MO 2022-05-29 00:00:00 Completed [facility] Influenza Virus Vaccine 2022-05-29 00:00:00 Completed [facility] Influenza Virus Vaccine Quad .5 mL IM 6+ MO 2022-05-29 00:00:00 Completed [facility] Influenza Virus Vaccine 2022-05-29 00:00:00 Completed [facility] Influenza Virus Vaccine Quad .5 mL IM 6+ MO 2022-05-29 00:00:00 Completed [facility] Influenza Virus Vaccine 2022-05-29 00:00:00 Completed [facility] Influenza Virus Vaccine Quad .5 mL IM 6+ MO 2022-05-29 00:00:00 Completed [facility] Influenza Virus Vaccine 2022-05-29 00:00:00 Completed [facility] Influenza Virus Vaccine Quad .5 mL IM 6+ MO 2022-05-29 00:00:00 Completed [facility] Influenza Virus Vaccine 2022-05-29 00:00:00 Completed [facility] Influenza Virus Vaccine Quad .5 mL IM 6+ MO 2022-05-29 00:00:00 Completed [facility] Influenza Virus Vaccine 2022-05-29 00:00:00 Completed [facility] Influenza Virus Vaccine Quad .5 mL IM 6+ MO 2022-05-29 00:00:00 Completed [facility] Influenza Virus Vaccine 2022-05-29 00:00:00 Completed [facility] Influenza Virus Vaccine Quad .5 mL IM 6+ MO 2022-05-29 00:00:00 Completed [facility] Influenza Virus Vaccine 2022-05-29 00:00:00 Completed [facility] Influenza Virus Vaccine Quad .5 mL IM 6+ MO 2022-05-29 00:00:00 Completed [facility] Influenza Virus Vaccine 2022-05-29 00:00:00 Completed [facility] Influenza Virus Vaccine Quad .5 mL IM 6+ MO 2022-05-29 00:00:00 Completed [facility] Influenza Virus Vaccine 2022-05-29 00:00:00 Completed [facility] Influenza Virus Vaccine Quad .5 mL IM 6+ MO 2022-05-29 00:00:00 Completed [facility] Influenza Virus Vaccine 2022-05-29 00:00:00 Completed [facility] Influenza Virus Vaccine Quad .5 mL IM 6+ MO 2022-05-29 00:00:00 Completed [facility] Influenza Virus Vaccine 2022-05-29 00:00:00 Completed [facility] Influenza Virus Vaccine Quad .5 mL IM 6+ MO 2022-05-29 00:00:00 Completed [facility] Influenza Virus Vaccine 2022-05-29 00:00:00 Completed [facility] Influenza Virus Vaccine Quad .5 mL IM 6+ MO 2022-05-29 00:00:00 Completed [facility] Influenza Virus Vaccine 2022-05-29 00:00:00 Completed [facility] Influenza Virus Vaccine Quad .5 mL IM 6+ MO 2022-05-29 00:00:00 Completed [facility] Influenza Virus Vaccine 2022-05-29 00:00:00 Completed [facility] Influenza Virus Vaccine Quad .5 mL IM 6+ MO 2022-05-29 00:00:00 Completed [facility] Influenza Virus Vaccine 2022-05-29 00:00:00 Completed [facility] Influenza Virus Vaccine Quad .5 mL IM 6+ MO 2022-05-29 00:00:00 Completed [facility] Influenza Virus Vaccine 2022-05-29 00:00:00 Completed [facility] Influenza Virus Vaccine Quad .5 mL IM 6+ MO 2022-05-29 00:00:00 Completed [facility] Influenza Virus Vaccine 2022-05-29 00:00:00 Completed [facility] Influenza Virus Vaccine Quad .5 mL IM 6+ MO 2022-05-29 00:00:00 Completed [facility] Influenza Virus Vaccine 2022-05-29 00:00:00 Completed [facility] Influenza Virus Vaccine Quad .5 mL IM 6+ MO 2022-05-29 00:00:00 Completed [facility] Influenza Virus Vaccine 2022-05-29 00:00:00 Completed [facility] Influenza Virus Vaccine Quad .5 mL IM 6+ MO 2022-05-29 00:00:00 Completed [facility] Influenza Virus Vaccine 2022-05-29 00:00:00 Completed [facility] Influenza Virus Vaccine Quad .5 mL IM 6+ MO 2022-05-29 00:00:00 Completed [facility] Influenza Virus Vaccine 2022-05-29 00:00:00 Completed [facility] Influenza Virus Vaccine Quad .5 mL IM 6+ MO 2022-05-29 00:00:00 Completed [facility] Influenza Virus Vaccine 2022-05-29 00:00:00 Completed [facility] Influenza Virus Vaccine Quad .5 mL IM 6+ MO 2022-05-29 00:00:00 Completed [facility] Influenza Virus Vaccine 2022-05-29 00:00:00 Completed [facility] Influenza Virus Vaccine Quad .5 mL IM 6+ MO 2022-05-29 00:00:00 Completed [facility] Influenza Virus Vaccine 2022-05-29 00:00:00 Completed [facility] Influenza Virus Vaccine Quad .5 mL IM 6+ MO 2022-05-29 00:00:00 Completed [facility] Influenza Virus Vaccine 2022-05-29 00:00:00 Completed [facility] Influenza Virus Vaccine Quad .5 mL IM 6+ MO 2022-05-29 00:00:00 Completed [facility] Influenza Virus Vaccine 2022-05-29 00:00:00 Completed [facility] Influenza Virus Vaccine Quad .5 mL IM 6+ MO 2022-05-29 00:00:00 Completed [facility] Influenza Virus Vaccine 2022-05-29 00:00:00 Completed [facility] Influenza Virus Vaccine Quad .5 mL IM 6+ MO 2022-05-29 00:00:00 Completed [facility] Influenza Virus Vaccine 2022-05-29 00:00:00 Completed [facility] Influenza Virus Vaccine Quad .5 mL IM 6+ MO 2022-05-29 00:00:00 Completed [facility] Influenza Virus Vaccine 2022-05-29 00:00:00 Completed [facility] Influenza Virus Vaccine Quad .5 mL IM 6+ MO 2022-05-29 00:00:00 Completed [facility] Influenza Virus Vaccine 2022-05-29 00:00:00 Completed [facility] Influenza Virus Vaccine Quad .5 mL IM 6+ MO 2022-05-29 00:00:00 Completed [facility] Influenza Virus Vaccine 2022-05-29 00:00:00 Completed [facility] Influenza Virus Vaccine Quad .5 mL IM 6+ MO 2022-05-29 00:00:00 Completed [facility] Influenza Virus Vaccine 2022-05-29 00:00:00 Completed [facility] Influenza Virus Vaccine Quad .5 mL IM 6+ MO 2022-05-29 00:00:00 Completed [facility] Influenza Virus Vaccine 2022-05-29 00:00:00 Completed [facility] Influenza Virus Vaccine Quad .5 mL IM 6+ MO 2022-05-29 00:00:00 Completed [facility] Influenza Virus Vaccine 2022-05-29 00:00:00 Completed [facility] Influenza Virus Vaccine Quad .5 mL IM 6+ MO 2022-05-29 00:00:00 Completed [facility] Influenza Virus Vaccine 2022-05-29 00:00:00 Completed [facility] Influenza Virus Vaccine Quad .5 mL IM 6+ MO 2022-05-29 00:00:00 Completed [facility] Influenza Virus Vaccine 2022-05-29 00:00:00 Completed [facility] Influenza Virus Vaccine Quad .5 mL IM 6+ MO 2022-05-29 00:00:00 Completed [facility] Influenza Virus Vaccine 2022-05-29 00:00:00 Completed [facility] Influenza Virus Vaccine Quad .5 mL IM 6+ MO 2022-05-29 00:00:00 Completed [facility] Influenza Virus Vaccine 2022-05-29 00:00:00 Completed [facility] Influenza Virus Vaccine Quad .5 mL IM 6+ MO 2022-05-29 00:00:00 Completed [facility] Influenza Virus Vaccine 2022-05-29 00:00:00 Completed [facility] Influenza Virus Vaccine Quad .5 mL IM 6+ MO 2022-05-29 00:00:00 Completed [facility] Influenza Virus Vaccine 2022-05-29 00:00:00 Completed [facility] Influenza Virus Vaccine Quad .5 mL IM 6+ MO 2022-05-29 00:00:00 Completed [facility] Influenza Virus Vaccine 2022-05-29 00:00:00 Completed [facility] Influenza Virus Vaccine Quad .5 mL IM 6+ MO 2022-05-29 00:00:00 Completed [facility] Influenza Virus Vaccine 2022-05-29 00:00:00 Completed [facility] Influenza Virus Vaccine Quad .5 mL IM 6+ MO 2022-05-29 00:00:00 Completed [facility] Influenza Virus Vaccine 2022-05-29 00:00:00 Completed [facility] Influenza Virus Vaccine Quad .5 mL IM 6+ MO 2022-05-29 00:00:00 Completed [facility] Influenza Virus Vaccine 2022-05-29 00:00:00 Completed [facility] Influenza Virus Vaccine Quad .5 mL IM 6+ MO 2022-05-29 00:00:00 Completed [facility] Influenza Virus Vaccine 2022-05-29 00:00:00 Completed [facility] Influenza Virus Vaccine Quad .5 mL IM 6+ MO 2022-05-29 00:00:00 Completed [facility] Influenza Virus Vaccine 2022-05-29 00:00:00 Completed [facility] Influenza Virus Vaccine Quad .5 mL IM 6+ MO 2022-05-29 00:00:00 Completed [facility] Influenza Virus Vaccine 2022-05-29 00:00:00 Completed [facility] Influenza Virus Vaccine Quad .5 mL IM 6+ MO 2022-05-29 00:00:00 Completed [facility] Influenza Virus Vaccine 2022-05-29 00:00:00 Completed [facility] Influenza Virus Vaccine Quad .5 mL IM 6+ MO 2022-05-29 00:00:00 Completed [facility] Influenza Virus Vaccine 2022-05-29 00:00:00 Completed [facility] Influenza Virus Vaccine Quad .5 mL IM 6+ MO (FLUZONE/FLULAVAL/F LUARIX) 2022-05-29 00:00:00 Completed [facility] Influenza Virus Vaccine 2022-05-29 00:00:00 Completed [facility] Influenza Virus Vaccine Quad .5 mL IM 6+ MO (FLUZONE/FLULAVAL/F LUARIX) 2022-05-29 00:00:00 Completed [facility] Influenza Virus Vaccine 2022-05-29 00:00:00 Completed [facility] Influenza Virus Vaccine Quad .5 mL IM 6+ MO (FLUZONE/FLULAVAL/F LUARIX) 2022-05-29 00:00:00 Completed [facility] Influenza Virus Vaccine Quad .5 mL IM 6+ MO 2021-07-01 00:00:00 Completed [facility] Influenza Virus Vaccine Quad .5 mL IM 6+ MO 2021-07-01 00:00:00 Completed [facility] Influenza Virus Vaccine Quad .5 mL IM 6+ MO 2021-07-01 00:00:00 Completed [facility] Influenza Virus Vaccine Quad .5 mL IM 6+ MO 2021-07-01 00:00:00 Completed [facility] Influenza Virus Vaccine Quad .5 mL IM 6+ MO 2021-07-01 00:00:00 Completed [facility] Influenza Virus Vaccine Quad .5 mL IM 6+ MO 2021-07-01 00:00:00 Completed [facility] Influenza Virus Vaccine Quad .5 mL IM 6+ MO 2021-07-01 00:00:00 Completed [facility] Influenza Virus Vaccine Quad .5 mL IM 6+ MO 2021-07-01 00:00:00 Completed [facility] Influenza Virus Vaccine Quad .5 mL IM 6+ MO 2021-07-01 00:00:00 Completed [facility] Influenza Virus Vaccine Quad .5 mL IM 6+ MO 2021-07-01 00:00:00 Completed [facility] Influenza Virus Vaccine Quad .5 mL IM 6+ MO 2021-07-01 00:00:00 Completed [facility] Influenza Virus Vaccine Quad .5 mL IM 6+ MO 2021-07-01 00:00:00 Completed [facility] Influenza Virus Vaccine Quad .5 mL IM 6+ MO 2021-07-01 00:00:00 Completed [facility] Influenza Virus Vaccine Quad .5 mL IM 6+ MO 2021-07-01 00:00:00 Completed [facility] Influenza Virus Vaccine Quad .5 mL IM 6+ MO 2021-07-01 00:00:00 Completed [facility] Influenza Virus Vaccine Quad .5 mL IM 6+ MO 2021-07-01 00:00:00 Completed [facility] Influenza Virus Vaccine Quad .5 mL IM 6+ MO 2021-07-01 00:00:00 Completed [facility] Influenza Virus Vaccine Quad .5 mL IM 6+ MO 2021-07-01 00:00:00 Completed [facility] Influenza Virus Vaccine Quad .5 mL IM 6+ MO 2021-07-01 00:00:00 Completed [facility] Influenza Virus Vaccine Quad .5 mL IM 6+ MO 2021-07-01 00:00:00 Completed [facility] Influenza Virus Vaccine Quad .5 mL IM 6+ MO 2021-07-01 00:00:00 Completed [facility] Influenza Virus Vaccine Quad .5 mL IM 6+ MO 2021-07-01 00:00:00 Completed [facility] Influenza Virus Vaccine Quad .5 mL IM 6+ MO 2021-07-01 00:00:00 Completed [facility] Influenza Virus Vaccine Quad .5 mL IM 6+ MO 2021-07-01 00:00:00 Completed [facility] Influenza Virus Vaccine Quad .5 mL IM 6+ MO 2021-07-01 00:00:00 Completed [facility] Influenza Virus Vaccine Quad .5 mL IM 6+ MO 2021-07-01 00:00:00 Completed [facility] Influenza Virus Vaccine Quad .5 mL IM 6+ MO 2021-07-01 00:00:00 Completed [facility] Influenza Virus Vaccine Quad .5 mL IM 6+ MO 2021-07-01 00:00:00 Completed [facility] Influenza Virus Vaccine Quad .5 mL IM 6+ MO 2021-07-01 00:00:00 Completed [facility] Influenza Virus Vaccine Quad .5 mL IM 6+ MO 2021-07-01 00:00:00 Completed [facility] Influenza Virus Vaccine Quad .5 mL IM 6+ MO 2021-07-01 00:00:00 Completed [facility] Influenza Virus Vaccine Quad .5 mL IM 6+ MO 2021-07-01 00:00:00 Completed [facility] Influenza Virus Vaccine Quad .5 mL IM 6+ MO 2021-07-01 00:00:00 Completed [facility] Influenza Virus Vaccine Quad .5 mL IM 6+ MO 2021-07-01 00:00:00 Completed [facility] Influenza Virus Vaccine Quad .5 mL IM 6+ MO 2021-07-01 00:00:00 Completed [facility] Influenza Virus Vaccine Quad .5 mL IM 6+ MO 2021-07-01 00:00:00 Completed [facility] Influenza Virus Vaccine Quad .5 mL IM 6+ MO 2021-07-01 00:00:00 Completed [facility] Influenza Virus Vaccine Quad .5 mL IM 6+ MO 2021-07-01 00:00:00 Completed [facility] Influenza Virus Vaccine Quad .5 mL IM 6+ MO 2021-07-01 00:00:00 Completed [facility] Influenza Virus Vaccine Quad .5 mL IM 6+ MO 2021-07-01 00:00:00 Completed [facility] Influenza Virus Vaccine Quad .5 mL IM 6+ MO 2021-07-01 00:00:00 Completed [facility] Influenza Virus Vaccine Quad .5 mL IM 6+ MO 2021-07-01 00:00:00 Completed [facility] Influenza Virus Vaccine Quad .5 mL IM 6+ MO 2021-07-01 00:00:00 Completed [facility] Influenza Virus Vaccine Quad .5 mL IM 6+ MO 2021-07-01 00:00:00 Completed [facility] Influenza Virus Vaccine Quad .5 mL IM 6+ MO 2021-07-01 00:00:00 Completed [facility] Influenza Virus Vaccine Quad .5 mL IM 6+ MO 2021-07-01 00:00:00 Completed [facility] Influenza Virus Vaccine Quad .5 mL IM 6+ MO 2021-07-01 00:00:00 Completed [facility] Influenza Virus Vaccine Quad .5 mL IM 6+ MO 2021-07-01 00:00:00 Completed [facility] Influenza Virus Vaccine Quad .5 mL IM 6+ MO 2021-07-01 00:00:00 Completed [facility] Influenza Virus Vaccine Quad .5 mL IM 6+ MO 2021-07-01 00:00:00 Completed [facility] Influenza Virus Vaccine Quad .5 mL IM 6+ MO 2021-07-01 00:00:00 Completed [facility] Influenza Virus Vaccine Quad .5 mL IM 6+ MO 2021-07-01 00:00:00 Completed [facility] Influenza Virus Vaccine Quad .5 mL IM 6+ MO 2021-07-01 00:00:00 Completed [facility] Influenza Virus Vaccine Quad .5 mL IM 6+ MO 2021-07-01 00:00:00 Completed [facility] Influenza Virus Vaccine Quad .5 mL IM 6+ MO 2021-07-01 00:00:00 Completed [facility] Influenza Virus Vaccine Quad .5 mL IM 6+ MO 2021-07-01 00:00:00 Completed [facility] Influenza Virus Vaccine Quad .5 mL IM 6+ MO 2021-07-01 00:00:00 Completed [facility] Influenza Virus Vaccine Quad .5 mL IM 6+ MO 2021-07-01 00:00:00 Completed [facility] Influenza Virus Vaccine Quad .5 mL IM 6+ MO 2021-07-01 00:00:00 Completed [facility] Influenza Virus Vaccine Quad .5 mL IM 6+ MO 2021-07-01 00:00:00 Completed [facility] Influenza Virus Vaccine Quad .5 mL IM 6+ MO 2021-07-01 00:00:00 Completed [facility] Influenza Virus Vaccine Quad .5 mL IM 6+ MO 2021-07-01 00:00:00 Completed [facility] Influenza Virus Vaccine Quad .5 mL IM 6+ MO 2021-07-01 00:00:00 Completed [facility] Influenza Virus Vaccine Quad .5 mL IM 6+ MO 2021-07-01 00:00:00 Completed [facility] Influenza Virus Vaccine Quad .5 mL IM 6+ MO 2021-07-01 00:00:00 Completed [facility] Influenza Virus Vaccine Quad .5 mL IM 6+ MO 2021-07-01 00:00:00 Completed [facility] Influenza Virus Vaccine Quad .5 mL IM 6+ MO 2021-07-01 00:00:00 Completed [facility] Influenza Virus Vaccine Quad .5 mL IM 6+ MO 2021-07-01 00:00:00 Completed [facility] Influenza Virus Vaccine Quad .5 mL IM 6+ MO 2021-07-01 00:00:00 Completed [facility] Influenza Virus Vaccine Quad .5 mL IM 6+ MO 2021-07-01 00:00:00 Completed [facility] Influenza Virus Vaccine Quad .5 mL IM 6+ MO 2021-07-01 00:00:00 Completed [facility] Influenza Virus Vaccine Quad .5 mL IM 6+ MO 2021-07-01 00:00:00 Completed [facility] Influenza Virus Vaccine Quad .5 mL IM 6+ MO 2021-07-01 00:00:00 Completed [facility] Influenza Virus Vaccine Quad .5 mL IM 6+ MO 2021-07-01 00:00:00 Completed [facility] Influenza Virus Vaccine Quad .5 mL IM 6+ MO 2021-07-01 00:00:00 Completed [facility] Influenza Virus Vaccine Quad .5 mL IM 6+ MO 2021-07-01 00:00:00 Completed [facility] Influenza Virus Vaccine Quad .5 mL IM 6+ MO 2021-07-01 00:00:00 Completed [facility] Influenza Virus Vaccine Quad .5 mL IM 6+ MO 2021-07-01 00:00:00 Completed [facility] Influenza Virus Vaccine Quad .5 mL IM 6+ MO 2021-07-01 00:00:00 Completed [facility] Influenza Virus Vaccine Quad .5 mL IM 6+ MO 2021-07-01 00:00:00 Completed [facility] Influenza Virus Vaccine Quad .5 mL IM 6+ MO 2021-07-01 00:00:00 Completed [facility] Influenza Virus Vaccine Quad .5 mL IM 6+ MO 2021-07-01 00:00:00 Completed [facility] Influenza Virus Vaccine Quad .5 mL IM 6+ MO 2021-07-01 00:00:00 Completed [facility] Influenza Virus Vaccine Quad .5 mL IM 6+ MO 2021-07-01 00:00:00 Completed [facility] Influenza Virus Vaccine Quad .5 mL IM 6+ MO 2021-07-01 00:00:00 Completed [facility] Influenza Virus Vaccine Quad .5 mL IM 6+ MO 2021-07-01 00:00:00 Completed [facility] Influenza Virus Vaccine Quad .5 mL IM 6+ MO 2021-07-01 00:00:00 Completed [facility] Influenza Virus Vaccine Quad .5 mL IM 6+ MO 2021-07-01 00:00:00 Completed [facility] Influenza Virus Vaccine Quad .5 mL IM 6+ MO 2021-07-01 00:00:00 Completed [facility] Influenza Virus Vaccine Quad .5 mL IM 6+ MO 2021-07-01 00:00:00 Completed [facility] Influenza Virus Vaccine Quad .5 mL IM 6+ MO 2021-07-01 00:00:00 Completed [facility] Influenza Virus Vaccine Quad .5 mL IM 6+ MO 2021-07-01 00:00:00 Completed [facility] Influenza Virus Vaccine Quad .5 mL IM 6+ MO 2021-07-01 00:00:00 Completed [facility] Influenza Virus Vaccine Quad .5 mL IM 6+ MO 2021-07-01 00:00:00 Completed [facility] Influenza Virus Vaccine Quad .5 mL IM 6+ MO 2021-07-01 00:00:00 Completed [facility] Influenza Virus Vaccine Quad .5 mL IM 6+ MO 2021-07-01 00:00:00 Completed [facility] Influenza Virus Vaccine Quad .5 mL IM 6+ MO 2021-07-01 00:00:00 Completed [facility] Influenza Virus Vaccine Quad .5 mL IM 6+ MO 2021-07-01 00:00:00 Completed [facility] Influenza Virus Vaccine Quad .5 mL IM 6+ MO 2021-07-01 00:00:00 Completed [facility] Influenza Virus Vaccine Quad .5 mL IM 6+ MO 2021-07-01 00:00:00 Completed [facility] Influenza Virus Vaccine Quad .5 mL IM 6+ MO 2021-07-01 00:00:00 Completed [facility] Influenza Virus Vaccine Quad .5 mL IM 6+ MO 2021-07-01 00:00:00 Completed [facility] Influenza Virus Vaccine Quad .5 mL IM 6+ MO 2021-07-01 00:00:00 Completed [facility] Influenza Virus Vaccine Quad .5 mL IM 6+ MO 2021-07-01 00:00:00 Completed [facility] Influenza Virus Vaccine Quad .5 mL IM 6+ MO 2021-07-01 00:00:00 Completed [facility] Influenza Virus Vaccine Quad .5 mL IM 6+ MO 2021-07-01 00:00:00 Completed [facility] Influenza Virus Vaccine Quad .5 mL IM 6+ MO 2021-07-01 00:00:00 Completed [facility] Influenza Virus Vaccine Quad .5 mL IM 6+ MO 2021-07-01 00:00:00 Completed [facility] Influenza Virus Vaccine Quad .5 mL IM 6+ MO 2021-07-01 00:00:00 Completed [facility] Influenza Virus Vaccine Quad .5 mL IM 6+ MO 2021-07-01 00:00:00 Completed [facility] Influenza Virus Vaccine Quad .5 mL IM 6+ MO 2021-07-01 00:00:00 Completed [facility] Influenza Virus Vaccine Quad .5 mL IM 6+ MO 2021-07-01 00:00:00 Completed [facility] Influenza Virus Vaccine Quad .5 mL IM 6+ MO 2021-07-01 00:00:00 Completed [facility] Influenza Virus Vaccine Quad .5 mL IM 6+ MO 2021-07-01 00:00:00 Completed [facility] Influenza Virus Vaccine Quad .5 mL IM 6+ MO 2021-07-01 00:00:00 Completed [facility] Influenza Virus Vaccine Quad .5 mL IM 6+ MO 2021-07-01 00:00:00 Completed [facility] Influenza Virus Vaccine Quad .5 mL IM 6+ MO 2021-07-01 00:00:00 Completed [facility] Influenza Virus Vaccine Quad .5 mL IM 6+ MO 2021-07-01 00:00:00 Completed [facility] Influenza Virus Vaccine Quad .5 mL IM 6+ MO 2021-07-01 00:00:00 Completed [facility] Influenza Virus Vaccine Quad .5 mL IM 6+ MO 2021-07-01 00:00:00 Completed [facility] Influenza Virus Vaccine Quad .5 mL IM 6+ MO 2021-07-01 00:00:00 Completed [facility] Influenza Virus Vaccine Quad .5 mL IM 6+ MO 2021-07-01 00:00:00 Completed [facility] Influenza Virus Vaccine Quad .5 mL IM 6+ MO 2021-07-01 00:00:00 Completed [facility] Influenza Virus Vaccine Quad .5 mL IM 6+ MO 2021-07-01 00:00:00 Completed [facility] Influenza Virus Vaccine Quad .5 mL IM 6+ MO 2021-07-01 00:00:00 Completed [facility] Influenza Virus Vaccine Quad .5 mL IM 6+ MO 2021-07-01 00:00:00 Completed [facility] Influenza Virus Vaccine Quad .5 mL IM 6+ MO 2021-07-01 00:00:00 Completed [facility] Influenza Virus Vaccine Quad .5 mL IM 6+ MO 2021-07-01 00:00:00 Completed [facility] Influenza Virus Vaccine Quad .5 mL IM 6+ MO 2021-07-01 00:00:00 Completed [facility] Influenza Virus Vaccine Quad .5 mL IM 6+ MO 2021-07-01 00:00:00 Completed [facility] Influenza Virus Vaccine Quad .5 mL IM 6+ MO 2021-07-01 00:00:00 Completed [facility] Influenza Virus Vaccine Quad .5 mL IM 6+ MO 2021-07-01 00:00:00 Completed [facility] Influenza Virus Vaccine Quad .5 mL IM 6+ MO 2021-07-01 00:00:00 Completed [facility] Influenza Virus Vaccine Quad .5 mL IM 6+ MO 2021-07-01 00:00:00 Completed [facility] Influenza Virus Vaccine Quad .5 mL IM 6+ MO 2021-07-01 00:00:00 Completed [facility] Influenza Virus Vaccine Quad .5 mL IM 6+ MO 2021-07-01 00:00:00 Completed [facility] Influenza Virus Vaccine Quad .5 mL IM 6+ MO 2021-07-01 00:00:00 Completed [facility] Influenza Virus Vaccine Quad .5 mL IM 6+ MO 2021-07-01 00:00:00 Completed [facility] Influenza Virus Vaccine Quad .5 mL IM 6+ MO (FLUZONE/FLULAVAL/F LUARIX) 2021-07-01 00:00:00 Completed [facility] Influenza Virus Vaccine Quad .5 mL IM 6+ MO (FLUZONE/FLULAVAL/F LUARIX) 2021-07-01 00:00:00 Completed [facility] Influenza Virus Vaccine Quad .5 mL IM 6+ MO (FLUZONE/FLULAVAL/F LUARIX) 2021-07-01 00:00:00 Completed [facility] Influenza Virus Vaccine Quad .5 mL IM 6+ MO 2021-07-01 00:00:00 Completed [facility] Influenza Virus Vaccine Quad .5 mL IM 6+ MO 2021-07-01 00:00:00 Completed [facility] Influenza Virus Vaccine Quad .5 mL IM 6+ MO 2021-07-01 00:00:00 Completed [facility] Influenza Virus Vaccine Quad .5 mL IM 6+ MO 2021-07-01 00:00:00 Completed [facility] Influenza Virus Vaccine Quad .5 mL IM 6+ MO 2021-07-01 00:00:00 Completed [facility] Influenza Virus Vaccine Quad .5 mL IM 6+ MO 2021-07-01 00:00:00 Completed [facility] Influenza Virus Vaccine Quad .5 mL IM 6+ MO 2021-07-01 00:00:00 Completed [facility] Influenza Virus Vaccine Quad .5 mL IM 6+ MO 2021-07-01 00:00:00 Completed [facility] Influenza Virus Vaccine Quad .5 mL IM 6+ MO 2021-07-01 00:00:00 Completed [facility] Influenza Virus Vaccine Quad .5 mL IM 6+ MO 2021-07-01 00:00:00 Completed [facility] Influenza Virus Vaccine Quad .5 mL IM 6+ MO 2021-07-01 00:00:00 Completed [facility] Influenza Virus Vaccine Quad .5 mL IM 6+ MO 2021-07-01 00:00:00 Completed [facility] Influenza Virus Vaccine Quad .5 mL IM 6+ MO 2021-07-01 00:00:00 Completed [facility] Influenza Virus Vaccine Quad .5 mL IM 6+ MO 2021-07-01 00:00:00 Completed [facility] Influenza Virus Vaccine Quad .5 mL IM 6+ MO 2021-07-01 00:00:00 Completed [facility] Influenza Virus Vaccine Quad .5 mL IM 6+ MO 2021-07-01 00:00:00 Completed [facility] Influenza Virus Vaccine Quad .5 mL IM 6+ MO 2021-07-01 00:00:00 Completed [facility] Influenza Virus Vaccine Quad .5 mL IM 6+ MO 2021-07-01 00:00:00 Completed [facility] Influenza Virus Vaccine Quad .5 mL IM 6+ MO 2021-07-01 00:00:00 Completed [facility] Influenza Virus Vaccine Quad .5 mL IM 6+ MO 2021-07-01 00:00:00 Completed [facility] Influenza Virus Vaccine Quad .5 mL IM 6+ MO 2021-07-01 00:00:00 Completed [facility] Influenza Virus Vaccine Quad .5 mL IM 6+ MO 2021-07-01 00:00:00 Completed [facility] Influenza Virus Vaccine Quad .5 mL IM 6+ MO 2021-07-01 00:00:00 Completed [facility] Influenza Virus Vaccine Quad .5 mL IM 6+ MO 2021-07-01 00:00:00 Completed [facility] Influenza Virus Vaccine Quad .5 mL IM 6+ MO 2021-07-01 00:00:00 Completed [facility] Influenza Virus Vaccine Quad .5 mL IM 6+ MO 2021-07-01 00:00:00 Completed [facility] Influenza Virus Vaccine Quad .5 mL IM 6+ MO 2021-07-01 00:00:00 Completed [facility] Influenza Virus Vaccine Quad .5 mL IM 6+ MO 2021-07-01 00:00:00 Completed [facility] Influenza Virus Vaccine Quad .5 mL IM 6+ MO 2021-07-01 00:00:00 Completed [facility] Influenza Virus Vaccine Quad .5 mL IM 6+ MO 2021-07-01 00:00:00 Completed [facility] Influenza Virus Vaccine Quad .5 mL IM 6+ MO 2021-07-01 00:00:00 Completed [facility] Influenza Virus Vaccine Quad .5 mL IM 6+ MO 2021-07-01 00:00:00 Completed [facility] Influenza Virus Vaccine Quad .5 mL IM 6+ MO 2021-07-01 00:00:00 Completed [facility] Influenza Virus Vaccine Quad .5 mL IM 6+ MO 2021-07-01 00:00:00 Completed [facility] Influenza Virus Vaccine Quad .5 mL IM 6+ MO 2021-07-01 00:00:00 Completed [facility] Influenza Virus Vaccine Quad .5 mL IM 6+ MO 2021-07-01 00:00:00 Completed [facility] Influenza Virus Vaccine Quad .5 mL IM 6+ MO 2021-07-01 00:00:00 Completed [facility] Influenza Virus Vaccine Quad .5 mL IM 6+ MO 2021-07-01 00:00:00 Completed [facility] Influenza Virus Vaccine Quad .5 mL IM 6+ MO 2021-07-01 00:00:00 Completed [facility] Influenza Virus Vaccine Quad .5 mL IM 6+ MO 2021-07-01 00:00:00 Completed [facility] Influenza Virus Vaccine Quad .5 mL IM 6+ MO 2021-07-01 00:00:00 Completed [facility] Influenza Virus Vaccine Quad .5 mL IM 6+ MO 2021-07-01 00:00:00 Completed [facility] Influenza Virus Vaccine Quad .5 mL IM 6+ MO 2021-07-01 00:00:00 Completed [facility] Influenza Virus Vaccine Quad .5 mL IM 6+ MO 2021-07-01 00:00:00 Completed [facility] Influenza Virus Vaccine Quad .5 mL IM 6+ MO 2021-07-01 00:00:00 Completed [facility] Influenza Virus Vaccine Quad .5 mL IM 6+ MO 2021-07-01 00:00:00 Completed [facility] Influenza Virus Vaccine Quad .5 mL IM 6+ MO 2021-07-01 00:00:00 Completed [facility] Influenza Virus Vaccine Quad .5 mL IM 6+ MO 2021-07-01 00:00:00 Completed [facility] Influenza Virus Vaccine Quad .5 mL IM 6+ MO 2021-07-01 00:00:00 Completed [facility] Influenza Virus Vaccine Quad .5 mL IM 6+ MO 2021-07-01 00:00:00 Completed [facility] Influenza Virus Vaccine Quad .5 mL IM 6+ MO 2021-07-01 00:00:00 Completed [facility] Influenza Virus Vaccine Quad .5 mL IM 6+ MO 2021-07-01 00:00:00 Completed [facility] Pneumococcal Polysaccharide, PPSV23 (PNEUMOVAX) 2020-07-13 00:00:00 Completed [facility] Pneumococcal Polysaccharide, PPSV23 (PNEUMOVAX) 2020-07-13 00:00:00 Completed [facility] Pneumococcal Polysaccharide, PPSV23 (PNEUMOVAX) 2020-07-13 00:00:00 Completed [facility] Pneumococcal Polysaccharide, PPSV23 (PNEUMOVAX) 2020-07-13 00:00:00 Completed [facility] Pneumococcal Polysaccharide, PPSV23 (PNEUMOVAX) 2020-07-13 00:00:00 Completed [facility] Pneumococcal Polysaccharide, PPSV23 (PNEUMOVAX) 2020-07-13 00:00:00 Completed [facility] Pneumococcal Polysaccharide, PPSV23 (PNEUMOVAX) 2020-07-13 00:00:00 Completed [facility] Pneumococcal Polysaccharide, PPSV23 (PNEUMOVAX) 2020-07-13 00:00:00 Completed [facility] Pneumococcal Polysaccharide, PPSV23 (PNEUMOVAX) 2020-07-13 00:00:00 Completed [facility] Pneumococcal Polysaccharide, PPSV23 (PNEUMOVAX) 2020-07-13 00:00:00 Completed [facility] Pneumococcal Polysaccharide, PPSV23 (PNEUMOVAX) 2020-07-13 00:00:00 Completed [facility] Pneumococcal Polysaccharide, PPSV23 (PNEUMOVAX) 2020-07-13 00:00:00 Completed [facility] Pneumococcal Polysaccharide, PPSV23 (PNEUMOVAX) 2020-07-13 00:00:00 Completed [facility] Pneumococcal Polysaccharide, PPSV23 (PNEUMOVAX) 2020-07-13 00:00:00 Completed [facility] Pneumococcal Polysaccharide, PPSV23 (PNEUMOVAX) 2020-07-13 00:00:00 Completed [facility] Pneumococcal Polysaccharide, PPSV23 (PNEUMOVAX) 2020-07-13 00:00:00 Completed [facility] Pneumococcal Polysaccharide, PPSV23 (PNEUMOVAX) 2020-07-13 00:00:00 Completed [facility] Pneumococcal Polysaccharide, PPSV23 (PNEUMOVAX) 2020-07-13 00:00:00 Completed [facility] Pneumococcal Polysaccharide, PPSV23 (PNEUMOVAX) 2020-07-13 00:00:00 Completed [facility] Pneumococcal Polysaccharide, PPSV23 (PNEUMOVAX) 2020-07-13 00:00:00 Completed [facility] Pneumococcal Polysaccharide, PPSV23 (PNEUMOVAX) 2020-07-13 00:00:00 Completed [facility] Pneumococcal Polysaccharide, PPSV23 (PNEUMOVAX) 2020-07-13 00:00:00 Completed [facility] Pneumococcal Polysaccharide, PPSV23 (PNEUMOVAX) 2020-07-13 00:00:00 Completed [facility] Pneumococcal Polysaccharide, PPSV23 (PNEUMOVAX) 2020-07-13 00:00:00 Completed [facility] Pneumococcal Polysaccharide, PPSV23 (PNEUMOVAX) 2020-07-13 00:00:00 Completed [facility] Pneumococcal Polysaccharide, PPSV23 (PNEUMOVAX) 2020-07-13 00:00:00 Completed [facility] Pneumococcal Polysaccharide, PPSV23 (PNEUMOVAX) 2020-07-13 00:00:00 Completed [facility] Pneumococcal Polysaccharide, PPSV23 (PNEUMOVAX) 2020-07-13 00:00:00 Completed [facility] Pneumococcal Polysaccharide, PPSV23 (PNEUMOVAX) 2020-07-13 00:00:00 Completed [facility] Pneumococcal Polysaccharide, PPSV23 (PNEUMOVAX) 2020-07-13 00:00:00 Completed [facility] Pneumococcal Polysaccharide, PPSV23 (PNEUMOVAX) 2020-07-13 00:00:00 Completed [facility] Pneumococcal Polysaccharide, PPSV23 (PNEUMOVAX) 2020-07-13 00:00:00 Completed [facility] Pneumococcal Polysaccharide, PPSV23 (PNEUMOVAX) 2020-07-13 00:00:00 Completed [facility] Pneumococcal Polysaccharide, PPSV23 (PNEUMOVAX) 2020-07-13 00:00:00 Completed [facility] Pneumococcal Polysaccharide, PPSV23 (PNEUMOVAX) 2020-07-13 00:00:00 Completed [facility] Pneumococcal Polysaccharide, PPSV23 (PNEUMOVAX) 2020-07-13 00:00:00 Completed [facility] Pneumococcal Polysaccharide, PPSV23 (PNEUMOVAX) 2020-07-13 00:00:00 Completed [facility] Pneumococcal Polysaccharide, PPSV23 (PNEUMOVAX) 2020-07-13 00:00:00 Completed [facility] Pneumococcal Polysaccharide, PPSV23 (PNEUMOVAX) 2020-07-13 00:00:00 Completed [facility] Pneumococcal Polysaccharide, PPSV23 (PNEUMOVAX) 2020-07-13 00:00:00 Completed [facility] Pneumococcal Polysaccharide, PPSV23 (PNEUMOVAX) 2020-07-13 00:00:00 Completed [facility] Pneumococcal Polysaccharide, PPSV23 (PNEUMOVAX) 2020-07-13 00:00:00 Completed [facility] Pneumococcal Polysaccharide, PPSV23 (PNEUMOVAX) 2020-07-13 00:00:00 Completed [facility] Pneumococcal Polysaccharide, PPSV23 (PNEUMOVAX) 2020-07-13 00:00:00 Completed [facility] Pneumococcal Polysaccharide, PPSV23 (PNEUMOVAX) 2020-07-13 00:00:00 Completed [facility] Pneumococcal Polysaccharide, PPSV23 (PNEUMOVAX) 2020-07-13 00:00:00 Completed [facility] Pneumococcal Polysaccharide, PPSV23 (PNEUMOVAX) 2020-07-13 00:00:00 Completed [facility] Pneumococcal Polysaccharide, PPSV23 (PNEUMOVAX) 2020-07-13 00:00:00 Completed [facility] Pneumococcal Polysaccharide, PPSV23 (PNEUMOVAX) 2020-07-13 00:00:00 Completed [facility] Pneumococcal Polysaccharide, PPSV23 (PNEUMOVAX) 2020-07-13 00:00:00 Completed [facility] Pneumococcal Polysaccharide, PPSV23 (PNEUMOVAX) 2020-07-13 00:00:00 Completed [facility] Pneumococcal Polysaccharide, PPSV23 (PNEUMOVAX) 2020-07-13 00:00:00 Completed [facility] Pneumococcal Polysaccharide, PPSV23 (PNEUMOVAX) 2020-07-13 00:00:00 Completed [facility] Pneumococcal Polysaccharide, PPSV23 (PNEUMOVAX) 2020-07-13 00:00:00 Completed [facility] Pneumococcal Polysaccharide, PPSV23 (PNEUMOVAX) 2020-07-13 00:00:00 Completed [facility] Pneumococcal Polysaccharide, PPSV23 (PNEUMOVAX) 2020-07-13 00:00:00 Completed [facility] Pneumococcal Polysaccharide, PPSV23 (PNEUMOVAX) 2020-07-13 00:00:00 Completed [facility] Pneumococcal Polysaccharide, PPSV23 (PNEUMOVAX) 2020-07-13 00:00:00 Completed [facility] Pneumococcal Polysaccharide, PPSV23 (PNEUMOVAX) 2020-07-13 00:00:00 Completed [facility] Pneumococcal Polysaccharide, PPSV23 (PNEUMOVAX) 2020-07-13 00:00:00 Completed [facility] Pneumococcal Polysaccharide, PPSV23 (PNEUMOVAX) 2020-07-13 00:00:00 Completed [facility] Pneumococcal Polysaccharide, PPSV23 (PNEUMOVAX) 2020-07-13 00:00:00 Completed [facility] Pneumococcal Polysaccharide, PPSV23 (PNEUMOVAX) 2020-07-13 00:00:00 Completed [facility] Pneumococcal Polysaccharide, PPSV23 (PNEUMOVAX) 2020-07-13 00:00:00 Completed [facility] Pneumococcal Polysaccharide, PPSV23 (PNEUMOVAX) 2020-07-13 00:00:00 Completed [facility] Pneumococcal Polysaccharide, PPSV23 (PNEUMOVAX) 2020-07-13 00:00:00 Completed [facility] Pneumococcal Polysaccharide, PPSV23 (PNEUMOVAX) 2020-07-13 00:00:00 Completed [facility] Pneumococcal Polysaccharide, PPSV23 (PNEUMOVAX) 2020-07-13 00:00:00 Completed [facility] Pneumococcal Polysaccharide, PPSV23 (PNEUMOVAX) 2020-07-13 00:00:00 Completed [facility] Pneumococcal Polysaccharide, PPSV23 (PNEUMOVAX) 2020-07-13 00:00:00 Completed [facility] Pneumococcal Polysaccharide, PPSV23 (PNEUMOVAX) 2020-07-13 00:00:00 Completed [facility] Pneumococcal Polysaccharide, PPSV23 (PNEUMOVAX) 2020-07-13 00:00:00 Completed [facility] Pneumococcal Polysaccharide, PPSV23 (PNEUMOVAX) 2020-07-13 00:00:00 Completed [facility] Pneumococcal Polysaccharide, PPSV23 (PNEUMOVAX) 2020-07-13 00:00:00 Completed [facility] Pneumococcal Polysaccharide, PPSV23 (PNEUMOVAX) 2020-07-13 00:00:00 Completed [facility] Pneumococcal Polysaccharide, PPSV23 (PNEUMOVAX) 2020-07-13 00:00:00 Completed [facility] Pneumococcal Polysaccharide, PPSV23 (PNEUMOVAX) 2020-07-13 00:00:00 Completed [facility] Pneumococcal Polysaccharide, PPSV23 (PNEUMOVAX) 2020-07-13 00:00:00 Completed [facility] Pneumococcal Polysaccharide, PPSV23 (PNEUMOVAX) 2020-07-13 00:00:00 Completed [facility] Pneumococcal Polysaccharide, PPSV23 (PNEUMOVAX) 2020-07-13 00:00:00 Completed [facility] Pneumococcal Polysaccharide, PPSV23 (PNEUMOVAX) 2020-07-13 00:00:00 Completed [facility] Pneumococcal Polysaccharide, PPSV23 (PNEUMOVAX) 2020-07-13 00:00:00 Completed [facility] Pneumococcal Polysaccharide, PPSV23 (PNEUMOVAX) 2020-07-13 00:00:00 Completed [facility] Pneumococcal Polysaccharide, PPSV23 (PNEUMOVAX) 2020-07-13 00:00:00 Completed [facility] Pneumococcal Polysaccharide, PPSV23 (PNEUMOVAX) 2020-07-13 00:00:00 Completed [facility] Pneumococcal Polysaccharide, PPSV23 (PNEUMOVAX) 2020-07-13 00:00:00 Completed [facility] Pneumococcal Polysaccharide, PPSV23 (PNEUMOVAX) 2020-07-13 00:00:00 Completed [facility] Pneumococcal Polysaccharide, PPSV23 (PNEUMOVAX) 2020-07-13 00:00:00 Completed [facility] Pneumococcal Polysaccharide, PPSV23 (PNEUMOVAX) 2020-07-13 00:00:00 Completed [facility] Pneumococcal Polysaccharide, PPSV23 (PNEUMOVAX) 2020-07-13 00:00:00 Completed [facility] Pneumococcal Polysaccharide, PPSV23 (PNEUMOVAX) 2020-07-13 00:00:00 Completed [facility] Pneumococcal Polysaccharide, PPSV23 (PNEUMOVAX) 2020-07-13 00:00:00 Completed [facility] Pneumococcal Polysaccharide, PPSV23 (PNEUMOVAX) 2020-07-13 00:00:00 Completed [facility] Pneumococcal Polysaccharide, PPSV23 (PNEUMOVAX) 2020-07-13 00:00:00 Completed [facility] Pneumococcal Polysaccharide, PPSV23 (PNEUMOVAX) 2020-07-13 00:00:00 Completed [facility] Pneumococcal Polysaccharide, PPSV23 (PNEUMOVAX) 2020-07-13 00:00:00 Completed [facility] Pneumococcal Polysaccharide, PPSV23 (PNEUMOVAX) 2020-07-13 00:00:00 Completed [facility] Pneumococcal Polysaccharide, PPSV23 (PNEUMOVAX) 2020-07-13 00:00:00 Completed [facility] Pneumococcal Polysaccharide, PPSV23 (PNEUMOVAX) 2020-07-13 00:00:00 Completed [facility] Pneumococcal Polysaccharide, PPSV23 (PNEUMOVAX) 2020-07-13 00:00:00 Completed [facility] Pneumococcal Polysaccharide, PPSV23 (PNEUMOVAX) 2020-07-13 00:00:00 Completed [facility] Pneumococcal Polysaccharide, PPSV23 (PNEUMOVAX) 2020-07-13 00:00:00 Completed [facility] Pneumococcal Polysaccharide, PPSV23 (PNEUMOVAX) 2020-07-13 00:00:00 Completed [facility] Pneumococcal Polysaccharide, PPSV23 (PNEUMOVAX) 2020-07-13 00:00:00 Completed [facility] Pneumococcal Polysaccharide, PPSV23 (PNEUMOVAX) 2020-07-13 00:00:00 Completed [facility] Pneumococcal Polysaccharide, PPSV23 (PNEUMOVAX) 2020-07-13 00:00:00 Completed [facility] Pneumococcal Polysaccharide, PPSV23 (PNEUMOVAX) 2020-07-13 00:00:00 Completed [facility] Pneumococcal Polysaccharide, PPSV23 (PNEUMOVAX) 2020-07-13 00:00:00 Completed [facility] Pneumococcal Polysaccharide, PPSV23 (PNEUMOVAX) 2020-07-13 00:00:00 Completed [facility] Pneumococcal Polysaccharide, PPSV23 (PNEUMOVAX) 2020-07-13 00:00:00 Completed [facility] Pneumococcal Polysaccharide, PPSV23 (PNEUMOVAX) 2020-07-13 00:00:00 Completed [facility] Pneumococcal Polysaccharide, PPSV23 (PNEUMOVAX) 2020-07-13 00:00:00 Completed [facility] Pneumococcal Polysaccharide, PPSV23 (PNEUMOVAX) 2020-07-13 00:00:00 Completed [facility] Pneumococcal Polysaccharide, PPSV23 (PNEUMOVAX) 2020-07-13 00:00:00 Completed [facility] Pneumococcal Polysaccharide, PPSV23 (PNEUMOVAX) 2020-07-13 00:00:00 Completed [facility] Pneumococcal Polysaccharide, PPSV23 (PNEUMOVAX) 2020-07-13 00:00:00 Completed [facility] Pneumococcal Polysaccharide, PPSV23 (PNEUMOVAX) 2020-07-13 00:00:00 Completed [facility] Pneumococcal Polysaccharide, PPSV23 (PNEUMOVAX) 2020-07-13 00:00:00 Completed [facility] Pneumococcal Polysaccharide, PPSV23 (PNEUMOVAX) 2020-07-13 00:00:00 Completed [facility] Pneumococcal Polysaccharide, PPSV23 (PNEUMOVAX) 2020-07-13 00:00:00 Completed [facility] Pneumococcal Polysaccharide, PPSV23 (PNEUMOVAX) 2020-07-13 00:00:00 Completed [facility] Pneumococcal Polysaccharide, PPSV23 (PNEUMOVAX) 2020-07-13 00:00:00 Completed [facility] Pneumococcal Polysaccharide, PPSV23 (PNEUMOVAX) 2020-07-13 00:00:00 Completed [facility] Pneumococcal Polysaccharide, PPSV23 (PNEUMOVAX) 2020-07-13 00:00:00 Completed [facility] Pneumococcal Polysaccharide, PPSV23 (PNEUMOVAX) 2020-07-13 00:00:00 Completed [facility] Pneumococcal Polysaccharide, PPSV23 (PNEUMOVAX) 2020-07-13 00:00:00 Completed [facility] Pneumococcal Polysaccharide, PPSV23 (PNEUMOVAX) 2020-07-13 00:00:00 Completed [facility] Pneumococcal Polysaccharide, PPSV23 (PNEUMOVAX) 2020-07-13 00:00:00 Completed [facility] Pneumococcal Polysaccharide, PPSV23 (PNEUMOVAX) 2020-07-13 00:00:00 Completed [facility] Pneumococcal Polysaccharide, PPSV23 (PNEUMOVAX) 2020-07-13 00:00:00 Completed [facility] Pneumococcal Polysaccharide, PPSV23 (PNEUMOVAX) 2020-07-13 00:00:00 Completed [facility] Pneumococcal Polysaccharide, PPSV23 (PNEUMOVAX) 2020-07-13 00:00:00 Completed [facility] Pneumococcal Polysaccharide, PPSV23 (PNEUMOVAX) 2020-07-13 00:00:00 Completed [facility] Pneumococcal Polysaccharide, PPSV23 (PNEUMOVAX) 2020-07-13 00:00:00 Completed [facility] Pneumococcal Polysaccharide, PPSV23 (PNEUMOVAX) 2020-07-13 00:00:00 Completed [facility] Pneumococcal Polysaccharide, PPSV23 (PNEUMOVAX) 2020-07-13 00:00:00 Completed [facility] Pneumococcal Polysaccharide, PPSV23 (PNEUMOVAX) 2020-07-13 00:00:00 Completed [facility] Pneumococcal Polysaccharide, PPSV23 (PNEUMOVAX) 2020-07-13 00:00:00 Completed [facility] Pneumococcal Polysaccharide, PPSV23 (PNEUMOVAX) 2020-07-13 00:00:00 Completed [facility] Pneumococcal Polysaccharide, PPSV23 (PNEUMOVAX) 2020-07-13 00:00:00 Completed [facility] Pneumococcal Polysaccharide, PPSV23 (PNEUMOVAX) 2020-07-13 00:00:00 Completed [facility] Pneumococcal Polysaccharide, PPSV23 (PNEUMOVAX) 2020-07-13 00:00:00 Completed [facility] Pneumococcal Polysaccharide, PPSV23 (PNEUMOVAX) 2020-07-13 00:00:00 Completed [facility] Pneumococcal Polysaccharide, PPSV23 (PNEUMOVAX) 2020-07-13 00:00:00 Completed [facility] Pneumococcal Polysaccharide, PPSV23 (PNEUMOVAX) 2020-07-13 00:00:00 Completed [facility] Pneumococcal Polysaccharide, PPSV23 (PNEUMOVAX) 2020-07-13 00:00:00 Completed [facility] Pneumococcal Polysaccharide, PPSV23 (PNEUMOVAX) 2020-07-13 00:00:00 Completed [facility] Pneumococcal Polysaccharide, PPSV23 (PNEUMOVAX) 2020-07-13 00:00:00 Completed [facility] Pneumococcal Polysaccharide, PPSV23 (PNEUMOVAX) 2020-07-13 00:00:00 Completed [facility] Pneumococcal Polysaccharide, PPSV23 (PNEUMOVAX) 2020-07-13 00:00:00 Completed [facility] Pneumococcal Polysaccharide, PPSV23 (PNEUMOVAX) 2020-07-13 00:00:00 Completed [facility] Pneumococcal Polysaccharide, PPSV23 (PNEUMOVAX) 2020-07-13 00:00:00 Completed [facility] Pneumococcal Polysaccharide, PPSV23 (PNEUMOVAX) 2020-07-13 00:00:00 Completed [facility] Pneumococcal Polysaccharide, PPSV23 (PNEUMOVAX) 2020-07-13 00:00:00 Completed [facility] Pneumococcal Polysaccharide, PPSV23 (PNEUMOVAX) 2020-07-13 00:00:00 Completed [facility] Pneumococcal Polysaccharide, PPSV23 (PNEUMOVAX) 2020-07-13 00:00:00 Completed [facility] Pneumococcal Polysaccharide, PPSV23 (PNEUMOVAX) 2020-07-13 00:00:00 Completed [facility] Pneumococcal Polysaccharide, PPSV23 (PNEUMOVAX) 2020-07-13 00:00:00 Completed [facility] Pneumococcal Polysaccharide, PPSV23 (PNEUMOVAX) 2020-07-13 00:00:00 Completed [facility] Pneumococcal Polysaccharide, PPSV23 (PNEUMOVAX) 2020-07-13 00:00:00 Completed [facility] Pneumococcal Polysaccharide, PPSV23 (PNEUMOVAX) 2020-07-13 00:00:00 Completed [facility] Pneumococcal Polysaccharide, PPSV23 (PNEUMOVAX) 2020-07-13 00:00:00 Completed [facility] Pneumococcal Polysaccharide, PPSV23 (PNEUMOVAX) 2020-07-13 00:00:00 Completed [facility] Pneumococcal Polysaccharide, PPSV23 (PNEUMOVAX) 2020-07-13 00:00:00 Completed [facility] Pneumococcal Polysaccharide, PPSV23 (PNEUMOVAX) 2020-07-13 00:00:00 Completed [facility] Pneumococcal Polysaccharide, PPSV23 (PNEUMOVAX) 2020-07-13 00:00:00 Completed [facility] Pneumococcal Polysaccharide, PPSV23 (PNEUMOVAX) 2020-07-13 00:00:00 Completed [facility] Pneumococcal Polysaccharide, PPSV23 (PNEUMOVAX) 2020-07-13 00:00:00 Completed [facility] Pneumococcal Polysaccharide, PPSV23 (PNEUMOVAX) 2020-07-13 00:00:00 Completed [facility] Pneumococcal Polysaccharide, PPSV23 (PNEUMOVAX) 2020-07-13 00:00:00 Completed [facility] Pneumococcal Polysaccharide, PPSV23 (PNEUMOVAX) 2020-07-13 00:00:00 Completed [facility] Pneumococcal Polysaccharide, PPSV23 (PNEUMOVAX) 2020-07-13 00:00:00 Completed [facility] Pneumococcal Polysaccharide, PPSV23 (PNEUMOVAX) 2020-07-13 00:00:00 Completed [facility] Pneumococcal Polysaccharide, PPSV23 (PNEUMOVAX) 2020-07-13 00:00:00 Completed [facility] Pneumococcal Polysaccharide, PPSV23 (PNEUMOVAX) 2020-07-13 00:00:00 Completed [facility] Pneumococcal Polysaccharide, PPSV23 (PNEUMOVAX) 2020-07-13 00:00:00 Completed [facility] Pneumococcal Polysaccharide, PPSV23 (PNEUMOVAX) 2020-07-13 00:00:00 Completed [facility] Pneumococcal Polysaccharide, PPSV23 (PNEUMOVAX) 2020-07-13 00:00:00 Completed [facility] Pneumococcal Polysaccharide, PPSV23 (PNEUMOVAX) 2020-07-13 00:00:00 Completed [facility] Pneumococcal Polysaccharide, PPSV23 (PNEUMOVAX) 2020-07-13 00:00:00 Completed [facility] Pneumococcal Polysaccharide, PPSV23 (PNEUMOVAX) 2020-07-13 00:00:00 Completed [facility] Pneumococcal Polysaccharide, PPSV23 (PNEUMOVAX) 2020-07-13 00:00:00 Completed [facility] Pneumococcal Polysaccharide, PPSV23 (PNEUMOVAX) 2020-07-13 00:00:00 Completed [facility] Pneumococcal Polysaccharide, PPSV23 (PNEUMOVAX) 2020-07-13 00:00:00 Completed [facility] Pneumococcal Polysaccharide, PPSV23 (PNEUMOVAX) 2020-07-13 00:00:00 Completed [facility] Pneumococcal Polysaccharide, PPSV23 (PNEUMOVAX) 2020-07-13 00:00:00 Completed [facility] Pneumococcal Polysaccharide, PPSV23 (PNEUMOVAX) 2020-07-13 00:00:00 Completed [facility] Pneumococcal Polysaccharide, PPSV23 (PNEUMOVAX) 2020-07-13 00:00:00 Completed [facility] Pneumococcal Polysaccharide, PPSV23 (PNEUMOVAX) 2020-07-13 00:00:00 Completed [facility] Pneumococcal Polysaccharide, PPSV23 (PNEUMOVAX) 2020-07-13 00:00:00 Completed [facility] Pneumococcal Polysaccharide, PPSV23 (PNEUMOVAX) 2020-07-13 00:00:00 Completed [facility] Pneumococcal Polysaccharide, PPSV23 (PNEUMOVAX) 2020-07-13 00:00:00 Completed [facility] Pneumococcal Polysaccharide, PPSV23 (PNEUMOVAX) 2020-07-13 00:00:00 Completed [facility] Pneumococcal Polysaccharide, PPSV23 (PNEUMOVAX) 2020-07-13 00:00:00 Completed [facility] Influenza Virus Vaccine Quad .5 mL IM 6+ MO 2020-05-13 00:00:00 Completed [facility] Influenza Virus Vaccine Quad .5 mL IM 6+ MO 2020-05-13 00:00:00 Completed [facility] Influenza Virus Vaccine Quad .5 mL IM 6+ MO 2020-05-13 00:00:00 Completed [facility] Influenza Virus Vaccine Quad .5 mL IM 6+ MO 2020-05-13 00:00:00 Completed [facility] Influenza Virus Vaccine Quad .5 mL IM 6+ MO 2020-05-13 00:00:00 Completed [facility] Influenza Virus Vaccine Quad .5 mL IM 6+ MO 2020-05-13 00:00:00 Completed [facility] Influenza Virus Vaccine Quad .5 mL IM 6+ MO 2020-05-13 00:00:00 Completed [facility] Influenza Virus Vaccine Quad .5 mL IM 6+ MO 2020-05-13 00:00:00 Completed [facility] Influenza Virus Vaccine Quad .5 mL IM 6+ MO 2020-05-13 00:00:00 Completed [facility] Influenza Virus Vaccine Quad .5 mL IM 6+ MO 2020-05-13 00:00:00 Completed [facility] Influenza Virus Vaccine Quad .5 mL IM 6+ MO 2020-05-13 00:00:00 Completed [facility] Influenza Virus Vaccine Quad .5 mL IM 6+ MO 2020-05-13 00:00:00 Completed [facility] Influenza Virus Vaccine Quad .5 mL IM 6+ MO 2020-05-13 00:00:00 Completed [facility] Influenza Virus Vaccine Quad .5 mL IM 6+ MO 2020-05-13 00:00:00 Completed [facility] Influenza Virus Vaccine Quad .5 mL IM 6+ MO 2020-05-13 00:00:00 Completed [facility] Influenza Virus Vaccine Quad .5 mL IM 6+ MO 2020-05-13 00:00:00 Completed [facility] Influenza Virus Vaccine Quad .5 mL IM 6+ MO 2020-05-13 00:00:00 Completed [facility] Influenza Virus Vaccine Quad .5 mL IM 6+ MO 2020-05-13 00:00:00 Completed [facility] Influenza Virus Vaccine Quad .5 mL IM 6+ MO 2020-05-13 00:00:00 Completed [facility] Influenza Virus Vaccine Quad .5 mL IM 6+ MO 2020-05-13 00:00:00 Completed [facility] Influenza Virus Vaccine Quad .5 mL IM 6+ MO 2020-05-13 00:00:00 Completed [facility] Influenza Virus Vaccine Quad .5 mL IM 6+ MO 2020-05-13 00:00:00 Completed [facility] Influenza Virus Vaccine Quad .5 mL IM 6+ MO 2020-05-13 00:00:00 Completed [facility] Influenza Virus Vaccine Quad .5 mL IM 6+ MO 2020-05-13 00:00:00 Completed [facility] Influenza Virus Vaccine Quad .5 mL IM 6+ MO 2020-05-13 00:00:00 Completed [facility] Influenza Virus Vaccine Quad .5 mL IM 6+ MO 2020-05-13 00:00:00 Completed [facility] Influenza Virus Vaccine Quad .5 mL IM 6+ MO 2020-05-13 00:00:00 Completed [facility] Influenza Virus Vaccine Quad .5 mL IM 6+ MO 2020-05-13 00:00:00 Completed [facility] Influenza Virus Vaccine Quad .5 mL IM 6+ MO 2020-05-13 00:00:00 Completed [facility] Influenza Virus Vaccine Quad .5 mL IM 6+ MO 2020-05-13 00:00:00 Completed [facility] Influenza Virus Vaccine Quad .5 mL IM 6+ MO 2020-05-13 00:00:00 Completed [facility] Influenza Virus Vaccine Quad .5 mL IM 6+ MO 2020-05-13 00:00:00 Completed [facility] Influenza Virus Vaccine Quad .5 mL IM 6+ MO 2020-05-13 00:00:00 Completed [facility] Influenza Virus Vaccine Quad .5 mL IM 6+ MO 2020-05-13 00:00:00 Completed [facility] Influenza Virus Vaccine Quad .5 mL IM 6+ MO 2020-05-13 00:00:00 Completed [facility] Influenza Virus Vaccine Quad .5 mL IM 6+ MO 2020-05-13 00:00:00 Completed [facility] Influenza Virus Vaccine Quad .5 mL IM 6+ MO 2020-05-13 00:00:00 Completed [facility] Influenza Virus Vaccine Quad .5 mL IM 6+ MO 2020-05-13 00:00:00 Completed [facility] Influenza Virus Vaccine Quad .5 mL IM 6+ MO 2020-05-13 00:00:00 Completed [facility] Influenza Virus Vaccine Quad .5 mL IM 6+ MO 2020-05-13 00:00:00 Completed [facility] Influenza Virus Vaccine Quad .5 mL IM 6+ MO 2020-05-13 00:00:00 Completed [facility] Influenza Virus Vaccine Quad .5 mL IM 6+ MO 2020-05-13 00:00:00 Completed [facility] Influenza Virus Vaccine Quad .5 mL IM 6+ MO 2020-05-13 00:00:00 Completed [facility] Influenza Virus Vaccine Quad .5 mL IM 6+ MO 2020-05-13 00:00:00 Completed [facility] Influenza Virus Vaccine Quad .5 mL IM 6+ MO 2020-05-13 00:00:00 Completed [facility] Influenza Virus Vaccine Quad .5 mL IM 6+ MO 2020-05-13 00:00:00 Completed [facility] Influenza Virus Vaccine Quad .5 mL IM 6+ MO 2020-05-13 00:00:00 Completed [facility] Influenza Virus Vaccine Quad .5 mL IM 6+ MO 2020-05-13 00:00:00 Completed [facility] Influenza Virus Vaccine Quad .5 mL IM 6+ MO 2020-05-13 00:00:00 Completed [facility] Influenza Virus Vaccine Quad .5 mL IM 6+ MO 2020-05-13 00:00:00 Completed [facility] Influenza Virus Vaccine Quad .5 mL IM 6+ MO 2020-05-13 00:00:00 Completed [facility] Influenza Virus Vaccine Quad .5 mL IM 6+ MO 2020-05-13 00:00:00 Completed [facility] Influenza Virus Vaccine Quad .5 mL IM 6+ MO 2020-05-13 00:00:00 Completed [facility] Influenza Virus Vaccine Quad .5 mL IM 6+ MO 2020-05-13 00:00:00 Completed [facility] Influenza Virus Vaccine Quad .5 mL IM 6+ MO 2020-05-13 00:00:00 Completed [facility] Influenza Virus Vaccine Quad .5 mL IM 6+ MO 2020-05-13 00:00:00 Completed [facility] Influenza Virus Vaccine Quad .5 mL IM 6+ MO 2020-05-13 00:00:00 Completed [facility] Influenza Virus Vaccine Quad .5 mL IM 6+ MO 2020-05-13 00:00:00 Completed [facility] Influenza Virus Vaccine Quad .5 mL IM 6+ MO 2020-05-13 00:00:00 Completed [facility] Influenza Virus Vaccine Quad .5 mL IM 6+ MO 2020-05-13 00:00:00 Completed [facility] Influenza Virus Vaccine Quad .5 mL IM 6+ MO 2020-05-13 00:00:00 Completed [facility] Influenza Virus Vaccine Quad .5 mL IM 6+ MO 2020-05-13 00:00:00 Completed [facility] Influenza Virus Vaccine Quad .5 mL IM 6+ MO 2020-05-13 00:00:00 Completed [facility] Influenza Virus Vaccine Quad .5 mL IM 6+ MO 2020-05-13 00:00:00 Completed [facility] Influenza Virus Vaccine Quad .5 mL IM 6+ MO 2020-05-13 00:00:00 Completed [facility] Influenza Virus Vaccine Quad .5 mL IM 6+ MO 2020-05-13 00:00:00 Completed [facility] Influenza Virus Vaccine Quad .5 mL IM 6+ MO 2020-05-13 00:00:00 Completed [facility] Influenza Virus Vaccine Quad .5 mL IM 6+ MO 2020-05-13 00:00:00 Completed [facility] Influenza Virus Vaccine Quad .5 mL IM 6+ MO 2020-05-13 00:00:00 Completed [facility] Influenza Virus Vaccine Quad .5 mL IM 6+ MO 2020-05-13 00:00:00 Completed [facility] Influenza Virus Vaccine Quad .5 mL IM 6+ MO 2020-05-13 00:00:00 Completed [facility] Influenza Virus Vaccine Quad .5 mL IM 6+ MO 2020-05-13 00:00:00 Completed [facility] Influenza Virus Vaccine Quad .5 mL IM 6+ MO 2020-05-13 00:00:00 Completed [facility] Influenza Virus Vaccine Quad .5 mL IM 6+ MO 2020-05-13 00:00:00 Completed [facility] Influenza Virus Vaccine Quad .5 mL IM 6+ MO 2020-05-13 00:00:00 Completed [facility] Influenza Virus Vaccine Quad .5 mL IM 6+ MO 2020-05-13 00:00:00 Completed [facility] Influenza Virus Vaccine Quad .5 mL IM 6+ MO 2020-05-13 00:00:00 Completed [facility] Influenza Virus Vaccine Quad .5 mL IM 6+ MO 2020-05-13 00:00:00 Completed [facility] Influenza Virus Vaccine Quad .5 mL IM 6+ MO 2020-05-13 00:00:00 Completed [facility] Influenza Virus Vaccine Quad .5 mL IM 6+ MO 2020-05-13 00:00:00 Completed [facility] Influenza Virus Vaccine Quad .5 mL IM 6+ MO 2020-05-13 00:00:00 Completed [facility] Influenza Virus Vaccine Quad .5 mL IM 6+ MO 2020-05-13 00:00:00 Completed [facility] Influenza Virus Vaccine Quad .5 mL IM 6+ MO 2020-05-13 00:00:00 Completed [facility] Influenza Virus Vaccine Quad .5 mL IM 6+ MO 2020-05-13 00:00:00 Completed [facility] Influenza Virus Vaccine Quad .5 mL IM 6+ MO 2020-05-13 00:00:00 Completed [facility] Influenza Virus Vaccine Quad .5 mL IM 6+ MO 2020-05-13 00:00:00 Completed [facility] Influenza Virus Vaccine Quad .5 mL IM 6+ MO 2020-05-13 00:00:00 Completed [facility] Influenza Virus Vaccine Quad .5 mL IM 6+ MO 2020-05-13 00:00:00 Completed [facility] Influenza Virus Vaccine Quad .5 mL IM 6+ MO 2020-05-13 00:00:00 Completed [facility] Influenza Virus Vaccine Quad .5 mL IM + MO 2020-05-13 00:00:00 Completed [facility] [facility] Quad .5 mL IM 6+ MO 2020-05-13 00:00:00 Completed [facility] Influenza Virus Vaccine Quad .5 mL IM 6+ MO 2020-05-13 00:00:00 Completed [facility] Influ[facility] Virus Vaccine Quad .5 mL IM 6+ MO 2020-05-13 00:00:00 Completed [facility] Influenza Virus Vaccine Quad .5 mL IM 6+ MO 2020-05-13 00:00:00 Completed [facility] Influ[facility] Virus Vaccine Quad .5 mL IM 6+ MO 2020-05-13 00:00:00 Completed [facility] Influ[facility] Virus Vaccine Quad .5 mL IM 6+ MO 2020-05-13 00:00:00 Completed [facility] Influ[facility] Virus Vaccine Quad .5 mL IM 6+ MO 2020-05-13 00:00:00 Completed [facility] Influ[facility] Virus Vaccine Quad .5 mL IM 6+ MO 2020-05-13 00:00:00 Completed [facility] Influenza Virus Vaccine Quad .5 mL IM 6+ MO 2020-05-13 00:00:00 Completed [facility] Influ[facility] Virus Vaccine Quad .5 mL IM 6+ MO 2020-05-13 00:00:00 Completed [facility] Influenza Virus Vaccine Quad .5 mL IM 6+ MO 2020-05-13 00:00:00 Completed [facility] Influenza Virus Vaccine Quad .5 mL IM 6+ MO 2020-05-13 00:00:00 Completed [facility] Influenza Virus Vaccine Quad .5 mL IM 6+ MO 2020-05-13 00:00:00 Completed [facility] Influenza Virus Vaccine Quad .5 mL IM 6+ MO 2020-05-13 00:00:00 Completed [facility] Influenza Virus Vaccine Quad .5 mL IM 6+ MO 2020-05-13 00:00:00 Completed [facility] Influenza Virus Vaccine Quad .5 mL IM 6+ MO 2020-05-13 00:00:00 Completed [facility] Influ[facility] Virus Vaccine Quad .5 mL IM 6+ MO 2020-05-13 00:00:00 Completed [facility] Influ[facility] Virus Vaccine Quad .5 mL IM 6+ MO 2020-05-13 00:00:00 Completed [facility] Influ[facility] Virus Vaccine Quad .5 mL IM 6+ MO 2020-05-13 00:00:00 Completed [facility] Influ[facility] Virus Vaccine Quad .5 mL IM 6+ MO 2020-05-13 00:00:00 Completed [facility] Influ[facility] Virus Vaccine Quad .5 mL IM 6+ MO 2020-05-13 00:00:00 Completed [facility] Influ[facility] Virus Vaccine Quad .5 mL IM 6+ MO 2020-05-13 00:00:00 Completed [facility] Influ[employer] Virus Vaccine Quad .5 mL IM 6+ MO 2020-05-13 00:00:00 Completed [facility] Influenza Virus Vaccine Quad .5 mL IM 6+ MO 2020-05-13 00:00:00 Completed [facility] Influ[facility] Virus Vaccine Quad .5 mL IM 6+ MO 2020-05-13 00:00:00 Completed [facility] Influ[facility] Virus Vaccine Quad .5 mL IM 6+ MO 2020-05-13 00:00:00 Completed [facility] Influ[facility] Virus Vaccine Quad .5 mL IM 6+ MO 2020-05-13 00:00:00 Completed [facility] Influ[facility] Virus Vaccine Quad .5 mL IM 6+ MO 2020-05-13 00:00:00 Completed [facility] Influ[facility] Virus Vaccine Quad .5 mL IM 6+ MO 2020-05-13 00:00:00 Completed [facility] Influ[facility] Virus Vaccine Quad .5 mL IM 6+ MO 2020-05-13 00:00:00 Completed [facility] Influ[facility] Virus Vaccine Quad .5 mL IM 6+ MO 2020-05-13 00:00:00 Completed [facility] Influ[facility] Virus Vaccine Quad .5 mL IM 6+ MO 2020-05-13 00:00:00 Completed [facility] Influ[facility] Virus Vaccine Quad .5 mL IM 6+ MO 2020-05-13 00:00:00 Completed [facility] Influ[facility] Virus Vaccine Quad .5 mL IM + MO 2020-05-13 00:00:00 Completed [facility] Influ[facility] Virus Vaccine Quad .5 mL IM 6+ MO 2020-05-13 00:00:00 Completed [facility] Influ[facility] Virus Vaccine Quad .5 mL IM 6+ MO 2020-05-13 00:00:00 Completed [facility] Influ[facility] Virus Vaccine Quad .5 mL IM + MO 2020-05-13 00:00:00 Completed [facility] Influ[facility] Virus Vaccine Quad .5 mL IM 6+ MO 2020-05-13 00:00:00 Completed [facility] Influ[facility] Virus Vaccine Quad .5 mL IM 6+ MO 2020-05-13 00:00:00 Completed [facility] Influ[facility] Virus Vaccine Quad .5 mL IM 6+ MO 2020-05-13 00:00:00 Completed [facility] Influ[facility] Virus Vaccine Quad .5 mL IM 6+ MO 2020-05-13 00:00:00 Completed [facility] Influ[facility] Virus Vaccine Quad .5 mL IM 6+ MO 2020-05-13 00:00:00 Completed [facility] Influ[facility] Virus Vaccine Quad .5 mL IM 6+ MO 2020-05-13 00:00:00 Completed [facility] Influ[facility] Virus Vaccine Quad .5 mL IM 6+ MO 2020-05-13 00:00:00 Completed [facility] Influ[facility] Virus Vaccine Quad .5 mL IM 6+ MO 2020-05-13 00:00:00 Completed [facility] Influ[facility] Virus Vaccine Quad .5 mL IM 6+ MO 2020-05-13 00:00:00 Completed [facility] Influ[facility] Virus Vaccine Quad .5 mL IM 6+ MO 2020-05-13 00:00:00 Completed [facility] Influenza Virus Vaccine Quad .5 mL IM 6+ MO 2020-05-13 00:00:00 Completed [facility] Influenza Virus Vaccine Quad .5 mL IM 6+ MO 2020-05-13 00:00:00 Completed [facility] Influenza Virus Vaccine Quad .5 mL IM 6+ MO (FLUZONE/FLULAVAL/F LUARIX) 2020-05-13 00:00:00 Completed [facility] Influenza Virus Vaccine Quad .5 mL IM 6+ MO (FLUZONE/FLULAVAL/F LUARIX) 2020-05-13 00:00:00 Completed [facility] Influenza Virus Vaccine Quad .5 mL IM 6+ MO (FLUZONE/FLULAVAL/F LUARIX) 2020-05-13 00:00:00 Completed [facility] Influenza Virus Vaccine Quad .5 mL IM 6+ MO 2020-05-13 00:00:00 Completed [facility] Influenza Virus Vaccine Quad .5 mL IM 6+ MO 2020-05-13 00:00:00 Completed [facility] Influ[facility] Virus Vaccine Quad .5 mL IM 6+ MO 2020-05-13 00:00:00 Completed [facility] Influ[facility] Virus Vaccine Quad .5 mL IM 6+ MO 2020-05-13 00:00:00 Completed [facility] Influenza Virus Vaccine Quad .5 mL IM 6+ MO 2020-05-13 00:00:00 Completed [facility] Influ[facility] Virus Vaccine Quad .5 mL IM 6+ MO 2020-05-13 00:00:00 Completed [facility] Influ[employer] Virus Vaccine Quad .5 mL IM 6+ MO 2020-05-13 00:00:00 Completed [facility] Influ[facility] Virus Vaccine Quad .5 mL IM 6+ MO 2020-05-13 00:00:00 Completed [facility] Influenza Virus Vaccine Quad .5 mL IM 6+ MO 2020-05-13 00:00:00 Completed [facility] Influenza Virus Vaccine Quad .5 mL IM 6+ MO 2020-05-13 00:00:00 Completed [facility] Influ[employer] Virus Vaccine Quad .5 mL IM 6+ MO 2020-05-13 00:00:00 Completed [facility] Influenza Virus Vaccine Quad .5 mL IM 6+ MO 2020-05-13 00:00:00 Completed [facility] Influenza Virus Vaccine Quad .5 mL IM 6+ MO 2020-05-13 00:00:00 Completed [facility] Influenza Virus Vaccine Quad .5 mL IM 6+ MO 2020-05-13 00:00:00 Completed [facility] Influ[employer] Virus Vaccine Quad .5 mL IM 6+ MO 2020-05-13 00:00:00 Completed [facility] Influ[employer] Virus Vaccine Quad .5 mL IM 6+ MO 2020-05-13 00:00:00 Completed [facility] Influ[employer] Virus Vaccine Quad .5 mL IM 6+ MO 2020-05-13 00:00:00 Completed [facility] Influ[employer] Virus Vaccine Quad .5 mL IM 6+ MO 2020-05-13 00:00:00 Completed [facility] Influ[employer] Virus Vaccine Quad .5 mL IM 6+ MO 2020-05-13 00:00:00 Completed [facility] Influ[employer] Virus Vaccine Quad .5 mL IM 6+ MO 2020-05-13 00:00:00 Completed [facility] Influ[employer] Virus Vaccine Quad .5 mL IM 6+ MO 2020-05-13 00:00:00 Completed [facility] Influ[employer] Virus Vaccine Quad .5 mL IM 6+ MO 2020-05-13 00:00:00 Completed [facility] Influenza Virus Vaccine Quad .5 mL IM 6+ MO 2020-05-13 00:00:00 Completed [facility] Influ[employer] Virus Vaccine Quad .5 mL IM 6+ MO 2020-05-13 00:00:00 Completed [facility] Influ[employer] Virus Vaccine Quad .5 mL IM 6+ MO 2020-05-13 00:00:00 Completed [facility] Influenza Virus Vaccine Quad .5 mL IM 6+ MO 2020-05-13 00:00:00 Completed [facility] Influ[employer] Virus Vaccine Quad .5 mL IM 6+ MO 2020-05-13 00:00:00 Completed [facility] Influenza Virus Vaccine Quad .5 mL IM 6+ MO 2020-05-13 00:00:00 Completed [facility] Influ[employer] Virus Vaccine Quad .5 mL IM 6+ MO 2020-05-13 00:00:00 Completed [facility] Influenza Virus Vaccine Quad .5 mL IM 6+ MO 2020-05-13 00:00:00 Completed [facility] Influenza Virus Vaccine Quad .5 mL IM 6+ MO 2020-05-13 00:00:00 Completed [facility] Influenza Virus Vaccine Quad .5 mL IM 6+ MO 2020-05-13 00:00:00 Completed [facility] Influ[employer] Virus Vaccine Quad .5 mL IM 6+ MO 2020-05-13 00:00:00 Completed [facility] Influenza Virus Vaccine Quad .5 mL IM 6+ MO 2020-05-13 00:00:00 Completed [facility] Influenza Virus Vaccine Quad .5 mL IM 6+ MO 2020-05-13 00:00:00 Completed [facility] Influenza Virus Vaccine Quad .5 mL IM + MO 2020-05-13 00:00:00 Completed [facility] Influ[employer] Virus Vaccine Quad .5 mL IM 6+ MO 2020-05-13 00:00:00 Completed [facility] Influenza Virus Vaccine Quad .5 mL IM 6+ MO 2020-05-13 00:00:00 Completed [facility] Influenza Virus Vaccine Quad .5 mL IM + MO 2020-05-13 00:00:00 Completed [facility] Influenza Virus Vaccine Quad .5 mL IM 6+ MO 2020-05-13 00:00:00 Completed [facility] Influ[employer] Virus Vaccine Quad .5 mL IM 6+ MO 2020-05-13 00:00:00 Completed [facility] Influenza Virus Vaccine Quad .5 mL IM 6+ MO 2020-05-13 00:00:00 Completed [facility] Influ[employer] Virus Vaccine Quad .5 mL IM 6+ MO 2020-05-13 00:00:00 Completed [facility] Influ[employer] Virus Vaccine Quad .5 mL IM 6+ MO 2020-05-13 00:00:00 Completed [facility] Influenza Virus Vaccine Quad .5 mL IM 6+ MO 2020-05-13 00:00:00 Completed [facility] Influ[employer] Virus Vaccine Quad .5 mL IM 6+ MO 2020-05-13 00:00:00 Completed [facility] Influ[employer] Virus Vaccine Quad .5 mL IM 6+ MO 2020-05-13 00:00:00 Completed [facility] Influenza Virus Vaccine Quad .5 mL IM 6+ MO 2020-05-13 00:00:00 Completed [facility] Influenza Virus Vaccine Quad .5 mL IM 6+ MO 2020-05-13 00:00:00 Completed [facility] Influenza Virus Vaccine Quad .5 mL IM 6+ MO 2020-05-13 00:00:00 Completed [facility] Influ[employer] Virus Vaccine Quad .5 mL IM 6+ MO 2020-05-13 00:00:00 Completed [facility] Influenza Virus Vaccine Quad .5 mL IM 6+ MO 2020-05-13 00:00:00 Completed [facility] Influenza Virus Vaccine Quad IM 3+ YRS 2017-05-29 00:00:00 Completed [facility] Influenza Virus Vaccine Quad IM 3+ YRS 2017-05-29 00:00:00 Completed [facility] Influenza Virus Vaccine Quad IM 3+ YRS 2017-05-29 00:00:00 Completed [facility] Influenza Virus Vaccine Quad IM 3+ YRS 2017-05-29 00:00:00 Completed [facility] Influenza Virus Vaccine Quad IM 3+ YRS 2017-05-29 00:00:00 Completed [facility] Influenza Virus Vaccine Quad IM 3+ YRS 2017-05-29 00:00:00 Completed [facility] Influenza Virus Vaccine Quad IM 3+ YRS 2017-05-29 00:00:00 Completed [facility] Influenza Virus Vaccine Quad IM 3+ YRS 2017-05-29 00:00:00 Completed [facility] Influenza Virus Vaccine Quad IM 3+ YRS 2017-05-29 00:00:00 Completed [facility] Influenza Virus Vaccine Quad IM 3+ YRS 2017-05-29 00:00:00 Completed [facility] Influenza Virus Vaccine Quad IM 3+ YRS 2017-05-29 00:00:00 Completed [facility] Influenza Virus Vaccine Quad IM 3+ YRS 2017-05-29 00:00:00 Completed [facility] Influenza Virus Vaccine Quad IM 3+ YRS 2017-05-29 00:00:00 Completed [facility] Influenza Virus Vaccine Quad IM 3+ YRS 2017-05-29 00:00:00 Completed [facility] Influenza Virus Vaccine Quad IM 3+ YRS 2017-05-29 00:00:00 Completed [facility] Influenza Virus Vaccine Quad IM 3+ YRS 2017-05-29 00:00:00 Completed [facility] Influenza Virus Vaccine Quad IM 3+ YRS 2017-05-29 00:00:00 Completed [facility] Influenza Virus Vaccine Quad IM 3+ YRS 2017-05-29 00:00:00 Completed [facility] Influenza Virus Vaccine Quad IM 3+ YRS 2017-05-29 00:00:00 Completed [facility] Influenza Virus Vaccine Quad IM 3+ YRS 2017-05-29 00:00:00 Completed [facility] Influenza Virus Vaccine Quad IM 3+ YRS 2017-05-29 00:00:00 Completed [facility] Influenza Virus Vaccine Quad IM 3+ YRS 2017-05-29 00:00:00 Completed [facility] Influenza Virus Vaccine Quad IM 3+ YRS 2017-05-29 00:00:00 Completed [facility] Influenza Virus Vaccine Quad IM 3+ YRS 2017-05-29 00:00:00 Completed [facility] Influenza Virus Vaccine Quad IM 3+ YRS 2017-05-29 00:00:00 Completed [facility] Influenza Virus Vaccine Quad IM 3+ YRS 2017-05-29 00:00:00 Completed [facility] Influenza Virus Vaccine Quad IM 3+ YRS 2017-05-29 00:00:00 Completed [facility] Influenza Virus Vaccine Quad IM 3+ YRS 2017-05-29 00:00:00 Completed [facility] Influenza Virus Vaccine Quad IM 3+ YRS 2017-05-29 00:00:00 Completed [facility] Influenza Virus Vaccine Quad IM 3+ YRS 2017-05-29 00:00:00 Completed [facility] Influenza Virus Vaccine Quad IM 3+ YRS 2017-05-29 00:00:00 Completed [facility] Influenza Virus Vaccine Quad IM 3+ YRS 2017-05-29 00:00:00 Completed [facility] Influenza Virus Vaccine Quad IM 3+ YRS 2017-05-29 00:00:00 Completed [facility] Influenza Virus Vaccine Quad IM 3+ YRS 2017-05-29 00:00:00 Completed [facility] Influenza Virus Vaccine Quad IM 3+ YRS 2017-05-29 00:00:00 Completed [facility] Influenza Virus Vaccine Quad IM 3+ YRS 2017-05-29 00:00:00 Completed [facility] Influenza Virus Vaccine Quad IM 3+ YRS 2017-05-29 00:00:00 Completed [facility] Influenza Virus Vaccine Quad IM 3+ YRS 2017-05-29 00:00:00 Completed [facility] Influenza Virus Vaccine Quad IM 3+ YRS 2017-05-29 00:00:00 Completed [facility] Influenza Virus Vaccine Quad IM 3+ YRS 2017-05-29 00:00:00 Completed [facility] Influenza Virus Vaccine Quad IM 3+ YRS 2017-05-29 00:00:00 Completed [facility] Influenza Virus Vaccine Quad IM 3+ YRS 2017-05-29 00:00:00 Completed [facility] Influenza Virus Vaccine Quad IM 3+ YRS 2017-05-29 00:00:00 Completed [facility] Influenza Virus Vaccine Quad IM 3+ YRS 2017-05-29 00:00:00 Completed [facility] Influenza Virus Vaccine Quad IM 3+ YRS 2017-05-29 00:00:00 Completed [facility] Influenza Virus Vaccine Quad IM 3+ YRS 2017-05-29 00:00:00 Completed [facility] Influenza Virus Vaccine Quad IM 3+ YRS 2017-05-29 00:00:00 Completed [facility] Influenza Virus Vaccine Quad IM 3+ YRS 2017-05-29 00:00:00 Completed [facility] Influenza Virus Vaccine Quad IM 3+ YRS 2017-05-29 00:00:00 Completed [facility] Influenza Virus Vaccine Quad IM 3+ YRS 2017-05-29 00:00:00 Completed [facility] Influ[facility] Virus Vaccine Quad IM 3+ YRS 2017-05-29 00:00:00 Completed [facility] Influenza Virus Vaccine Quad IM 3+ YRS 2017-05-29 00:00:00 Completed [facility] Influenza Virus Vaccine Quad IM 3+ YRS 2017-05-29 00:00:00 Completed [facility] Influenza Virus Vaccine Quad IM 3+ YRS 2017-05-29 00:00:00 Completed [facility] Influenza Virus Vaccine Quad IM 3+ YRS 2017-05-29 00:00:00 Completed [facility] Influenza Virus Vaccine Quad IM 3+ YRS 2017-05-29 00:00:00 Completed [facility] Influenza Virus Vaccine Quad IM 3+ YRS 2017-05-29 00:00:00 Completed [facility] Influenza Virus Vaccine Quad IM 3+ YRS 2017-05-29 00:00:00 Completed [facility] Influenza Virus Vaccine Quad IM 3+ YRS 2017-05-29 00:00:00 Completed [facility] Influenza Virus Vaccine Quad IM 3+ YRS 2017-05-29 00:00:00 Completed [facility] Influenza Virus Vaccine Quad IM 3+ YRS 2017-05-29 00:00:00 Completed [facility] Influenza Virus Vaccine Quad IM 3+ YRS 2017-05-29 00:00:00 Completed [facility] Influenza Virus Vaccine Quad IM 3+ YRS 2017-05-29 00:00:00 Completed [facility] Influenza Virus Vaccine Quad IM 3+ YRS 2017-05-29 00:00:00 Completed [facility] Influenza Virus Vaccine Quad IM 3+ YRS 2017-05-29 00:00:00 Completed [facility] Influenza Virus Vaccine Quad IM 3+ YRS 2017-05-29 00:00:00 Completed [facility] Influenza Virus Vaccine Quad IM 3+ YRS 2017-05-29 00:00:00 Completed [facility] Influenza Virus Vaccine Quad IM 3+ YRS 2017-05-29 00:00:00 Completed [facility] Influenza Virus Vaccine Quad IM 3+ YRS 2017-05-29 00:00:00 Completed [facility] Influenza Virus Vaccine Quad IM 3+ YRS 2017-05-29 00:00:00 Completed [facility] Influenza Virus Vaccine Quad IM 3+ YRS 2017-05-29 00:00:00 Completed [facility] Influenza Virus Vaccine Quad IM 3+ YRS 2017-05-29 00:00:00 Completed [facility] Influenza Virus Vaccine Quad IM 3+ YRS 2017-05-29 00:00:00 Completed [facility] Influenza Virus Vaccine Quad IM 3+ YRS 2017-05-29 00:00:00 Completed [facility] Influenza Virus Vaccine Quad IM 3+ YRS 2017-05-29 00:00:00 Completed [facility] Influenza Virus Vaccine Quad IM 3+ YRS 2017-05-29 00:00:00 Completed [facility] Influenza Virus Vaccine Quad IM 3+ YRS 2017-05-29 00:00:00 Completed [facility] Influenza Virus Vaccine Quad IM 3+ YRS 2017-05-29 00:00:00 Completed [facility] Influenza Virus Vaccine Quad IM 3+ YRS 2017-05-29 00:00:00 Completed [facility] Influenza Virus Vaccine Quad IM 3+ YRS 2017-05-29 00:00:00 Completed [facility] Influenza Virus Vaccine Quad IM 3+ YRS 2017-05-29 00:00:00 Completed [facility] Influenza Virus Vaccine Quad IM 3+ YRS 2017-05-29 00:00:00 Completed [facility] Influenza Virus Vaccine Quad IM 3+ YRS 2017-05-29 00:00:00 Completed [facility] Influenza Virus Vaccine Quad IM 3+ YRS 2017-05-29 00:00:00 Completed [facility] Influenza Virus Vaccine Quad IM 3+ YRS 2017-05-29 00:00:00 Completed [facility] Influ[facility] Virus Vaccine Quad IM 3+ YRS 2017-05-29 00:00:00 Completed [facility] Influenza Virus Vaccine Quad IM 3+ YRS 2017-05-29 00:00:00 Completed [facility] Influ[employer] Virus Vaccine Quad IM 3+ YRS 2017-05-29 00:00:00 Completed [facility] Influ[employer] Virus Vaccine Quad IM 3+ YRS 2017-05-29 00:00:00 Completed [facility] Influenza Virus Vaccine Quad IM 3+ YRS 2017-05-29 00:00:00 Completed [facility] Influenza Virus Vaccine Quad IM 3+ YRS 2017-05-29 00:00:00 Completed [facility] Influenza Virus Vaccine Quad IM 3+ YRS 2017-05-29 00:00:00 Completed [facility] Influenza Virus Vaccine Quad IM 3+ YRS 2017-05-29 00:00:00 Completed [facility] Influenza Virus Vaccine Quad IM 3+ YRS 2017-05-29 00:00:00 Completed [facility] Influenza Virus Vaccine Quad IM 3+ YRS 2017-05-29 00:00:00 Completed [facility] Influenza Virus Vaccine Quad IM 3+ YRS 2017-05-29 00:00:00 Completed [facility] Influ[facility] Virus Vaccine Quad IM 3+ YRS 2017-05-29 00:00:00 Completed [facility] Influenza Virus Vaccine Quad IM 3+ YRS 2017-05-29 00:00:00 Completed [facility] Influ[facility] Virus Vaccine Quad IM 3+ YRS 2017-05-29 00:00:00 Completed [facility] Influ[facility] Virus Vaccine Quad IM 3+ YRS 2017-05-29 00:00:00 Completed [facility] Influ[facility] Virus Vaccine Quad IM 3+ YRS 2017-05-29 00:00:00 Completed [facility] Influ[facility] Virus Vaccine Quad IM 3+ YRS 2017-05-29 00:00:00 Completed [facility] Influenza Virus Vaccine Quad IM 3+ YRS 2017-05-29 00:00:00 Completed [facility] Influ[facility] Virus Vaccine Quad IM 3+ YRS 2017-05-29 00:00:00 Completed [facility] Influ[facility] Virus Vaccine Quad IM 3+ YRS 2017-05-29 00:00:00 Completed [facility] Virus Vaccine Quad IM 3+ YRS 2017-05-29 00:00:00 Completed [facility] Influ[facility] Virus Vaccine Quad IM 3+ YRS 2017-05-29 00:00:00 Completed [facility] Influ[facility] Virus Vaccine Quad IM 3+ YRS 2017-05-29 00:00:00 Completed [facility] Influ[facility] Virus Vaccine Quad IM 3+ YRS 2017-05-29 00:00:00 Completed [facility] Influ[facility] Virus Vaccine Quad IM 3+ YRS 2017-05-29 00:00:00 Completed [facility] Influ[facility] Virus Vaccine Quad IM 3+ YRS 2017-05-29 00:00:00 Completed [facility] Influ[facility] Virus Vaccine Quad IM 3+ YRS 2017-05-29 00:00:00 Completed [facility] Influ[facility] Virus Vaccine Quad IM 3+ YRS 2017-05-29 00:00:00 Completed [facility] Influ[facility] Virus Vaccine Quad IM 3+ YRS 2017-05-29 00:00:00 Completed [facility] Vaccine Quad IM 3+ YRS 2017-05-29 00:00:00 Completed [facility] Virus Vaccine Quad IM 3+ YRS 2017-05-29 00:00:00 Completed [facility] Vaccine Quad IM 3+ YRS 2017-05-29 00:00:00 Completed [facility] Vaccine Quad IM 3+ YRS 2017-05-29 00:00:00 Completed [facility] Vaccine Quad IM 3+ YRS 2017-05-29 00:00:00 Completed [facility] Influ[facility] Virus Vaccine Quad IM 3+ YRS 2017-05-29 00:00:00 Completed [facility] Influ[facility] Virus Vaccine Quad IM 3+ YRS 2017-05-29 00:00:00 Completed [facility] Influ[facility] Virus Vaccine Quad IM 3+ YRS 2017-05-29 00:00:00 Completed [facility] Vaccine Quad IM 3+ YRS 2017-05-29 00:00:00 Completed [facility] Vaccine Quad IM 3+ YRS 2017-05-29 00:00:00 Completed [facility] Vaccine Quad IM 3+ YRS 2017-05-29 00:00:00 Completed [facility] Vaccine Quad IM 3+ YRS 2017-05-29 00:00:00 Completed [facility] Vaccine Quad IM 3+ YRS 2017-05-29 00:00:00 Completed [facility] Vaccine Quad IM 3+ YRS 2017-05-29 00:00:00 Completed [facility] Influ[facility] Virus Vaccine Quad IM 3+ YRS 2017-05-29 00:00:00 Completed [facility] Vaccine Quad IM 3+ YRS 2017-05-29 00:00:00 Completed [facility] Virus Vaccine Quad IM 3+ YRS 2017-05-29 00:00:00 Completed [facility] Vaccine Quad IM 3+ YRS 2017-05-29 00:00:00 Completed [facility] Vaccine Quad IM 3+ YRS 2017-05-29 00:00:00 Completed [facility] Vaccine Quad IM 3+ YRS 2017-05-29 00:00:00 Completed [facility] Vaccine Quad IM 3+ YRS 2017-05-29 00:00:00 Completed [facility] Vaccine Quad IM 3+ YRS 2017-05-29 00:00:00 Completed [facility] Vaccine Quad IM 3+ YRS 2017-05-29 00:00:00 Completed [facility] Influ[facility] Virus Vaccine Quad IM 3+ YRS 2017-05-29 00:00:00 Completed [facility] Vaccine Quad IM 3+ YRS 2017-05-29 00:00:00 Completed [facility] Influ[facility] Virus Vaccine Quad IM 3+ YRS 2017-05-29 00:00:00 Completed [facility] Influ[facility] Virus Vaccine Quad IM 3+ YRS 2017-05-29 00:00:00 Completed [facility] Influ[facility] Virus Vaccine Quad IM 3+ YRS 2017-05-29 00:00:00 Completed [facility] Influ[facility] Virus Vaccine Quad IM 3+ YRS 2017-05-29 00:00:00 Completed [facility] Influ[facility] Vaccine Quad IM 3+ YRS 2017-05-29 00:00:00 Completed [facility] Vaccine Quad IM 3+ YRS 2017-05-29 00:00:00 Completed [facility] Influenza Virus Vaccine Quad IM 3+ YRS 2017-05-29 00:00:00 Completed [facility] Influenza Virus Vaccine Quad IM 3+ YRS 2017-05-29 00:00:00 Completed [facility] Influenza Virus Vaccine Quad IM 3+ YRS 2017-05-29 00:00:00 Completed [facility] Influenza Virus Vaccine Quad IM 3+ YRS 2017-05-29 00:00:00 Completed [facility] Influenza Virus Vaccine Quad IM 3+ YRS 2017-05-29 00:00:00 Completed [facility] Influenza Virus Vaccine Quad IM 3+ YRS 2017-05-29 00:00:00 Completed [facility] Influenza Virus Vaccine Quad IM 3+ YRS 2017-05-29 00:00:00 Completed [facility] Influenza Virus Vaccine Quad IM 3+ YRS 2017-05-29 00:00:00 Completed [facility] Influenza Virus Vaccine Quad IM 3+ YRS 2017-05-29 00:00:00 Completed [facility] Influenza Virus Vaccine Quad IM 3+ YRS 2017-05-29 00:00:00 Completed [facility] Influenza Virus Vaccine Quad IM 3+ YRS 2017-05-29 00:00:00 Completed [facility] Influenza Virus Vaccine Quad IM 3+ YRS 2017-05-29 00:00:00 Completed [facility] Influenza Virus Vaccine Quad IM 3+ YRS 2017-05-29 00:00:00 Completed [facility] Influenza Virus Vaccine Quad IM 3+ YRS 2017-05-29 00:00:00 Completed [facility] Influenza Virus Vaccine Quad IM 3+ YRS 2017-05-29 00:00:00 Completed [facility] Influenza Virus Vaccine Quad IM 3+ YRS 2017-05-29 00:00:00 Completed [facility] Influenza Virus Vaccine Quad IM 3+ YRS 2017-05-29 00:00:00 Completed [facility] Influenza Virus Vaccine Quad IM 3+ YRS 2017-05-29 00:00:00 Completed [facility] Influenza Virus Vaccine Quad IM 3+ YRS 2017-05-29 00:00:00 Completed [facility] Influenza Virus Vaccine Quad IM 3+ YRS 2017-05-29 00:00:00 Completed [facility] Influenza Virus Vaccine Quad IM 3+ YRS 2017-05-29 00:00:00 Completed [facility] Influenza Virus Vaccine Quad IM 3+ YRS 2017-05-29 00:00:00 Completed [facility] Influenza Virus Vaccine Quad IM 3+ YRS 2017-05-29 00:00:00 Completed [facility] Influenza Virus Vaccine Quad IM 3+ YRS 2017-05-29 00:00:00 Completed [facility] Influenza Virus Vaccine Quad IM 3+ YRS 2017-05-29 00:00:00 Completed [facility] Influenza Virus Vaccine Quad IM 3+ YRS 2017-05-29 00:00:00 Completed [facility] Influenza Virus Vaccine Quad IM 3+ YRS 2017-05-29 00:00:00 Completed [facility] Influenza Virus Vaccine Quad IM 3+ YRS 2017-05-29 00:00:00 Completed [facility] Influenza Virus Vaccine Quad IM 3+ YRS 2017-05-29 00:00:00 Completed [facility] Influenza Virus Vaccine Quad IM 3+ YRS 2017-05-29 00:00:00 Completed [facility] Influenza Virus Vaccine Quad IM 3+ YRS 2017-05-29 00:00:00 Completed [facility] Influenza Virus Vaccine Quad IM 3+ YRS 2017-05-29 00:00:00 Completed [facility] Influenza Virus Vaccine Quad IM 3+ YRS 2017-05-29 00:00:00 Completed [facility] Influenza Virus Vaccine Quad IM 3+ YRS 2017-05-29 00:00:00 Completed [facility] Influenza Virus Vaccine Quad IM 3+ YRS 2017-05-29 00:00:00 Completed [facility] Influenza Virus Vaccine Quad IM 3+ YRS 2017-05-29 00:00:00 Completed [facility] Influenza Virus Vaccine Quad IM 3+ YRS 2017-05-29 00:00:00 Completed [facility] Influenza Virus Vaccine Quad IM 3+ YRS 2017-05-29 00:00:00 Completed [facility] Influenza Virus Vaccine Quad IM 3+ YRS 2017-05-29 00:00:00 Completed [facility] Influenza Virus Vaccine Quad IM 3+ YRS 2017-05-29 00:00:00 Completed [facility] Influenza Virus Vaccine Quad IM 3+ YRS 2017-05-29 00:00:00 Completed [facility] Influenza Virus Vaccine Quad IM 3+ YRS 2017-05-29 00:00:00 Completed [facility] Influenza Virus Vaccine Quad IM 3+ YRS 2017-05-29 00:00:00 Completed [facility] Influenza Virus Vaccine Quad IM 3+ YRS 2017-05-29 00:00:00 Completed [facility] Influenza Virus Vaccine Quad IM 3+ YRS 2017-05-29 00:00:00 Completed [facility] Influenza Virus Vaccine Quad IM 3+ YRS 2017-05-29 00:00:00 Completed [facility] Influenza Virus Vaccine Quad IM 3+ YRS 2017-05-29 00:00:00 Completed [facility] Influenza Virus Vaccine Quad IM 3+ YRS 2017-05-29 00:00:00 Completed [facility] Influenza Virus Vaccine Quad IM 3+ YRS 2017-05-29 00:00:00 Completed [facility] MMR 2017-04-29 00:00:00 Completed [facility] MMR 2017-04-29 00:00:00 Completed [facility] MMR 2017-04-29 00:00:00 Completed [facility] MMR 2017-04-29 00:00:00 Completed [facility] MMR 2017-04-29 00:00:00 Completed [facility] MMR 2017-04-29 00:00:00 Completed [facility] MMR 2017-04-29 00:00:00 Completed [facility] MMR 2017-04-29 00:00:00 Completed [facility] MMR 2017-04-29 00:00:00 Completed [facility] MMR 2017-04-29 00:00:00 Completed [facility] MMR 2017-04-29 00:00:00 Completed [facility] MMR 2017-04-29 00:00:00 Completed [facility] MMR 2017-04-29 00:00:00 Completed [facility] MMR 2017-04-29 00:00:00 Completed [facility] MMR 2017-04-29 00:00:00 Completed [facility] MMR 2017-04-29 00:00:00 Completed [facility] MMR 2017-04-29 00:00:00 Completed [facility] MMR 2017-04-29 00:00:00 Completed [facility] MMR 2017-04-29 00:00:00 Completed [facility] MMR 2017-04-29 00:00:00 Completed [facility] MMR 2017-04-29 00:00:00 Completed [facility] MMR 2017-04-29 00:00:00 Completed [facility] MMR 2017-04-29 00:00:00 Completed [facility] MMR 2017-04-29 00:00:00 Completed [facility] MMR 2017-04-29 00:00:00 Completed [facility] MMR 2017-04-29 00:00:00 Completed [facility] MMR 2017-04-29 00:00:00 Completed [facility] MMR 2017-04-29 00:00:00 Completed [facility] MMR 2017-04-29 00:00:00 Completed [facility] MMR 2017-04-29 00:00:00 Completed [facility] MMR 2017-04-29 00:00:00 Completed [facility] MMR 2017-04-29 00:00:00 Completed [facility] MMR 2017-04-29 00:00:00 Completed [facility] MMR 2017-04-29 00:00:00 Completed [facility] MMR 2017-04-29 00:00:00 Completed [facility] MMR 2017-04-29 00:00:00 Completed [facility] MMR 2017-04-29 00:00:00 Completed [facility] MMR 2017-04-29 00:00:00 Completed [facility] MMR 2017-04-29 00:00:00 Completed [facility] MMR 2017-04-29 00:00:00 Completed [facility] MMR 2017-04-29 00:00:00 Completed [facility] MMR 2017-04-29 00:00:00 Completed [facility] MMR 2017-04-29 00:00:00 Completed [facility] MMR 2017-04-29 00:00:00 Completed [facility] MMR 2017-04-29 00:00:00 Completed [facility] MMR 2017-04-29 00:00:00 Completed [facility] MMR 2017-04-29 00:00:00 Completed [facility] MMR 2017-04-29 00:00:00 Completed [facility] MMR 2017-04-29 00:00:00 Completed [facility] MMR 2017-04-29 00:00:00 Completed [facility] MMR 2017-04-29 00:00:00 Completed [facility] MMR 2017-04-29 00:00:00 Completed [facility] MMR 2017-04-29 00:00:00 Completed [facility] MMR 2017-04-29 00:00:00 Completed [facility] MMR 2017-04-29 00:00:00 Completed [facility] MMR 2017-04-29 00:00:00 Completed [facility] MMR 2017-04-29 00:00:00 Completed [facility] MMR 2017-04-29 00:00:00 Completed [facility] MMR 2017-04-29 00:00:00 Completed [facility] MMR 2017-04-29 00:00:00 Completed [facility] MMR 2017-04-29 00:00:00 Completed [facility] MMR 2017-04-29 00:00:00 Completed [facility] MMR 2017-04-29 00:00:00 Completed [facility] MMR 2017-04-29 00:00:00 Completed [facility] MMR 2017-04-29 00:00:00 Completed [facility] MMR 2017-04-29 00:00:00 Completed [facility] MMR 2017-04-29 00:00:00 Completed [facility] MMR 2017-04-29 00:00:00 Completed [facility] MMR 2017-04-29 00:00:00 Completed [facility] MMR 2017-04-29 00:00:00 Completed [facility] MMR 2017-04-29 00:00:00 Completed [facility] MMR 2017-04-29 00:00:00 Completed [facility] MMR 2017-04-29 00:00:00 Completed [facility] MMR 2017-04-29 00:00:00 Completed [facility] MMR 2017-04-29 00:00:00 Completed [facility] MMR 2017-04-29 00:00:00 Completed [facility] MMR 2017-04-29 00:00:00 Completed [facility] MMR 2017-04-29 00:00:00 Completed [facility] MMR 2017-04-29 00:00:00 Completed [facility] MMR 2017-04-29 00:00:00 Completed [facility] MMR 2017-04-29 00:00:00 Completed [facility] MMR 2017-04-29 00:00:00 Completed [facility] MMR 2017-04-29 00:00:00 Completed [facility] MMR 2017-04-29 00:00:00 Completed [facility] MMR 2017-04-29 00:00:00 Completed [facility] MMR 2017-04-29 00:00:00 Completed [facility] MMR 2017-04-29 00:00:00 Completed [facility] MMR 2017-04-29 00:00:00 Completed [facility] MMR 2017-04-29 00:00:00 Completed [facility] MMR 2017-04-29 00:00:00 Completed [facility] MMR 2017-04-29 00:00:00 Completed [facility] MMR 2017-04-29 00:00:00 Completed [facility] MMR 2017-04-29 00:00:00 Completed [facility] MMR 2017-04-29 00:00:00 Completed [facility] MMR 2017-04-29 00:00:00 Completed [facility] MMR 2017-04-29 00:00:00 Completed [facility] MMR 2017-04-29 00:00:00 Completed [facility] MMR 2017-04-29 00:00:00 Completed [facility] MMR 2017-04-29 00:00:00 Completed [facility] MMR 2017-04-29 00:00:00 Completed [facility] MMR 2017-04-29 00:00:00 Completed [facility] MMR 2017-04-29 00:00:00 Completed [facility] MMR 2017-04-29 00:00:00 Completed [facility] MMR 2017-04-29 00:00:00 Completed [facility] MMR 2017-04-29 00:00:00 Completed [facility] MMR 2017-04-29 00:00:00 Completed [facility] MMR 2017-04-29 00:00:00 Completed [facility] MMR 2017-04-29 00:00:00 Completed [facility] MMR 2017-04-29 00:00:00 Completed [facility] MMR 2017-04-29 00:00:00 Completed [facility] MMR 2017-04-29 00:00:00 Completed [facility] MMR 2017-04-29 00:00:00 Completed [facility] MMR 2017-04-29 00:00:00 Completed [facility] MMR 2017-04-29 00:00:00 Completed [facility] MMR 2017-04-29 00:00:00 Completed [facility] MMR 2017-04-29 00:00:00 Completed [facility] MMR 2017-04-29 00:00:00 Completed [facility] MMR 2017-04-29 00:00:00 Completed [facility] MMR 2017-04-29 00:00:00 Completed [facility] MMR 2017-04-29 00:00:00 Completed [facility] MMR 2017-04-29 00:00:00 Completed [facility] MMR 2017-04-29 00:00:00 Completed [facility] MMR 2017-04-29 00:00:00 Completed [facility] MMR 2017-04-29 00:00:00 Completed [facility] MMR 2017-04-29 00:00:00 Completed [facility] MMR 2017-04-29 00:00:00 Completed [facility] MMR 2017-04-29 00:00:00 Completed [facility] MMR 2017-04-29 00:00:00 Completed [facility] MMR 2017-04-29 00:00:00 Completed [facility] MMR 2017-04-29 00:00:00 Completed [facility] MMR 2017-04-29 00:00:00 Completed [facility] MMR 2017-04-29 00:00:00 Completed [facility] MMR 2017-04-29 00:00:00 Completed [facility] MMR 2017-04-29 00:00:00 Completed [facility] MMR 2017-04-29 00:00:00 Completed [facility] MMR 2017-04-29 00:00:00 Completed [facility] MMR 2017-04-29 00:00:00 Completed [facility] MMR 2017-04-29 00:00:00 Completed [facility] MMR 2017-04-29 00:00:00 Completed [facility] MMR 2017-04-29 00:00:00 Completed [facility] MMR 2017-04-29 00:00:00 Completed [facility] MMR 2017-04-29 00:00:00 Completed [facility] MMR 2017-04-29 00:00:00 Completed [facility] MMR 2017-04-29 00:00:00 Completed [facility] MMR 2017-04-29 00:00:00 Completed [facility] MMR 2017-04-29 00:00:00 Completed [facility] MMR 2017-04-29 00:00:00 Completed [facility] MMR 2017-04-29 00:00:00 Completed [facility] MMR 2017-04-29 00:00:00 Completed [facility] MMR 2017-04-29 00:00:00 Completed [facility] MMR 2017-04-29 00:00:00 Completed [facility] MMR 2017-04-29 00:00:00 Completed [facility] MMR 2017-04-29 00:00:00 Completed [facility] MMR 2017-04-29 00:00:00 Completed [facility] MMR 2017-04-29 00:00:00 Completed [facility] MMR 2017-04-29 00:00:00 Completed [facility] MMR 2017-04-29 00:00:00 Completed [facility] MMR 2017-04-29 00:00:00 Completed [facility] MMR 2017-04-29 00:00:00 Completed [facility] MMR 2017-04-29 00:00:00 Completed [facility] MMR 2017-04-29 00:00:00 Completed [facility] MMR 2017-04-29 00:00:00 Completed [facility] MMR 2017-04-29 00:00:00 Completed [facility] MMR 2017-04-29 00:00:00 Completed [facility] MMR 2017-04-29 00:00:00 Completed [facility] MMR 2017-04-29 00:00:00 Completed [facility] MMR 2017-04-29 00:00:00 Completed [facility] MMR 2017-04-29 00:00:00 Completed [facility] MMR 2017-04-29 00:00:00 Completed [facility] MMR 2017-04-29 00:00:00 Completed [facility] MMR 2017-04-29 00:00:00 Completed [facility] MMR 2017-04-29 00:00:00 Completed [facility] MMR 2017-04-29 00:00:00 Completed [facility] MMR 2017-04-29 00:00:00 Completed [facility] MMR 2017-04-29 00:00:00 Completed [facility] MMR 2017-04-29 00:00:00 Completed [facility] MMR 2017-04-29 00:00:00 Completed [facility] MMR 2017-04-29 00:00:00 Completed [facility] MMR 2017-04-29 00:00:00 Completed [facility] MMR 2017-04-29 00:00:00 Completed [facility] MMR 2017-04-29 00:00:00 Completed [facility] MMR 2017-04-29 00:00:00 Completed [facility] MMR 2017-04-29 00:00:00 Completed [facility] MMR 2017-04-29 00:00:00 Completed [facility] MMR 2017-04-29 00:00:00 Completed [facility] MMR 2017-04-29 00:00:00 Completed [facility] MMR 2017-04-29 00:00:00 Completed [facility] MMR 2017-04-29 00:00:00 Completed [facility] MMR 2017-04-29 00:00:00 Completed [facility] MMR 2017-04-29 00:00:00 Completed [facility] MMR 2017-04-29 00:00:00 Completed [facility] MMR 2017-04-29 00:00:00 Completed [facility] MMR 2017-04-29 00:00:00 Completed [facility] MMR 2017-04-29 00:00:00 Completed [facility] TDAP 2017-02-28 00:00:00 Completed [facility] TDAP 2017-02-28 00:00:00 Completed [facility] TDAP 2017-02-28 00:00:00 Completed [facility] TDAP 2017-02-28 00:00:00 Completed [facility] TDAP 2017-02-28 00:00:00 Completed [facility] TDAP 2017-02-28 00:00:00 Completed [facility] TDAP 2017-02-28 00:00:00 Completed [facility] TDAP 2017-02-28 00:00:00 Completed [facility] TDAP 2017-02-28 00:00:00 Completed [facility] TDAP 2017-02-28 00:00:00 Completed [facility] TDAP 2017-02-28 00:00:00 Completed [facility] TDAP 2017-02-28 00:00:00 Completed [facility] TDAP 2017-02-28 00:00:00 Completed [facility] TDAP 2017-02-28 00:00:00 Completed [facility] TDAP 2017-02-28 00:00:00 Completed [facility] TDAP 2017-02-28 00:00:00 Completed [facility] TDAP 2017-02-28 00:00:00 Completed [facility] TDAP 2017-02-28 00:00:00 Completed [facility] TDAP 2017-02-28 00:00:00 Completed [facility] TDAP 2017-02-28 00:00:00 Completed [facility] TDAP 2017-02-28 00:00:00 Completed [facility] TDAP 2017-02-28 00:00:00 Completed [facility] TDAP 2017-02-28 00:00:00 Completed [facility] TDAP 2017-02-28 00:00:00 Completed [facility] TDAP 2017-02-28 00:00:00 Completed [facility] TDAP 2017-02-28 00:00:00 Completed [facility] TDAP 2017-02-28 00:00:00 Completed [facility] TDAP 2017-02-28 00:00:00 Completed [facility] TDAP 2017-02-28 00:00:00 Completed [facility] TDAP 2017-02-28 00:00:00 Completed [facility] TDAP 2017-02-28 00:00:00 Completed [facility] TDAP 2017-02-28 00:00:00 Completed [facility] TDAP 2017-02-28 00:00:00 Completed [facility] TDAP 2017-02-28 00:00:00 Completed [facility] TDAP 2017-02-28 00:00:00 Completed [facility] TDAP 2017-02-28 00:00:00 Completed [facility] TDAP 2017-02-28 00:00:00 Completed [facility] TDAP 2017-02-28 00:00:00 Completed [facility] TDAP 2017-02-28 00:00:00 Completed [facility] TDAP 2017-02-28 00:00:00 Completed [facility] TDAP 2017-02-28 00:00:00 Completed [facility] TDAP 2017-02-28 00:00:00 Completed [facility] TDAP 2017-02-28 00:00:00 Completed [facility] TDAP 2017-02-28 00:00:00 Completed [facility] TDAP 2017-02-28 00:00:00 Completed [facility] TDAP 2017-02-28 00:00:00 Completed [facility] TDAP 2017-02-28 00:00:00 Completed [facility] TDAP 2017-02-28 00:00:00 Completed [facility] TDAP 2017-02-28 00:00:00 Completed [facility] TDAP 2017-02-28 00:00:00 Completed [facility] TDAP 2017-02-28 00:00:00 Completed [facility] TDAP 2017-02-28 00:00:00 Completed [facility] TDAP 2017-02-28 00:00:00 Completed [facility] TDAP 2017-02-28 00:00:00 Completed [facility] TDAP 2017-02-28 00:00:00 Completed [facility] TDAP 2017-02-28 00:00:00 Completed [facility] TDAP 2017-02-28 00:00:00 Completed [facility] TDAP 2017-02-28 00:00:00 Completed [facility] TDAP 2017-02-28 00:00:00 Completed [facility] TDAP 2017-02-28 00:00:00 Completed [facility] TDAP 2017-02-28 00:00:00 Completed [facility] TDAP 2017-02-28 00:00:00 Completed [facility] TDAP 2017-02-28 00:00:00 Completed [facility] TDAP 2017-02-28 00:00:00 Completed [facility] TDAP 2017-02-28 00:00:00 Completed [facility] TDAP 2017-02-28 00:00:00 Completed [facility] TDAP 2017-02-28 00:00:00 Completed [facility] TDAP 2017-02-28 00:00:00 Completed [facility] TDAP 2017-02-28 00:00:00 Completed [facility] TDAP 2017-02-28 00:00:00 Completed [facility] TDAP 2017-02-28 00:00:00 Completed [facility] TDAP 2017-02-28 00:00:00 Completed [facility] TDAP 2017-02-28 00:00:00 Completed [facility] TDAP 2017-02-28 00:00:00 Completed [facility] TDAP 2017-02-28 00:00:00 Completed [facility] TDAP 2017-02-28 00:00:00 Completed [facility] TDAP 2017-02-28 00:00:00 Completed [facility] TDAP 2017-02-28 00:00:00 Completed [facility] TDAP 2017-02-28 00:00:00 Completed [facility] TDAP 2017-02-28 00:00:00 Completed [facility] TDAP 2017-02-28 00:00:00 Completed [facility] TDAP 2017-02-28 00:00:00 Completed [facility] TDAP 2017-02-28 00:00:00 Completed [facility] TDAP 2017-02-28 00:00:00 Completed [facility] TDAP 2017-02-28 00:00:00 Completed [facility] TDAP 2017-02-28 00:00:00 Completed [facility] TDAP 2017-02-28 00:00:00 Completed [facility] TDAP 2017-02-28 00:00:00 Completed [facility] TDAP 2017-02-28 00:00:00 Completed [facility] TDAP 2017-02-28 00:00:00 Completed [facility] TDAP 2017-02-28 00:00:00 Completed [facility] TDAP 2017-02-28 00:00:00 Completed [facility] TDAP 2017-02-28 00:00:00 Completed [facility] TDAP 2017-02-28 00:00:00 Completed [facility] TDAP 2017-02-28 00:00:00 Completed [facility] TDAP 2017-02-28 00:00:00 Completed [facility] TDAP 2017-02-28 00:00:00 Completed [facility] TDAP 2017-02-28 00:00:00 Completed [facility] TDAP 2017-02-28 00:00:00 Completed [facility] TDAP 2017-02-28 00:00:00 Completed [facility] TDAP 2017-02-28 00:00:00 Completed [facility] TDAP 2017-02-28 00:00:00 Completed [facility] TDAP 2017-02-28 00:00:00 Completed [facility] TDAP 2017-02-28 00:00:00 Completed [facility] TDAP 2017-02-28 00:00:00 Completed [facility] TDAP 2017-02-28 00:00:00 Completed [facility] TDAP 2017-02-28 00:00:00 Completed [facility] TDAP 2017-02-28 00:00:00 Completed [facility] TDAP 2017-02-28 00:00:00 Completed [facility] TDAP 2017-02-28 00:00:00 Completed [facility] TDAP 2017-02-28 00:00:00 Completed [facility] TDAP 2017-02-28 00:00:00 Completed [facility] TDAP 2017-02-28 00:00:00 Completed [facility] TDAP 2017-02-28 00:00:00 Completed [facility] TDAP 2017-02-28 00:00:00 Completed [facility] TDAP 2017-02-28 00:00:00 Completed [facility] TDAP 2017-02-28 00:00:00 Completed [facility] TDAP 2017-02-28 00:00:00 Completed [facility] TDAP 2017-02-28 00:00:00 Completed [facility] TDAP 2017-02-28 00:00:00 Completed [facility] TDAP 2017-02-28 00:00:00 Completed [facility] TDAP 2017-02-28 00:00:00 Completed [facility] TDAP 2017-02-28 00:00:00 Completed [facility] TDAP 2017-02-28 00:00:00 Completed [facility] TDAP 2017-02-28 00:00:00 Completed [facility] TDAP 2017-02-28 00:00:00 Completed [facility] TDAP 2017-02-28 00:00:00 Completed [facility] TDAP 2017-02-28 00:00:00 Completed [facility] TDAP 2017-02-28 00:00:00 Completed [facility] TDAP 2017-02-28 00:00:00 Completed [facility] TDAP 2017-02-28 00:00:00 Completed [facility] TDAP 2017-02-28 00:00:00 Completed [facility] TDAP 2017-02-28 00:00:00 Completed [facility] TDAP 2017-02-28 00:00:00 Completed [facility] TDAP 2017-02-28 00:00:00 Completed [facility] TDAP 2017-02-28 00:00:00 Completed [facility] TDAP 2017-02-28 00:00:00 Completed [facility] TDAP 2017-02-28 00:00:00 Completed [facility] TDAP 2017-02-28 00:00:00 Completed [facility] TDAP 2017-02-28 00:00:00 Completed [facility] TDAP 2017-02-28 00:00:00 Completed [facility] TDAP 2017-02-28 00:00:00 Completed [facility] TDAP 2017-02-28 00:00:00 Completed [facility] TDAP 2017-02-28 00:00:00 Completed [facility] TDAP 2017-02-28 00:00:00 Completed [facility] TDAP 2017-02-28 00:00:00 Completed [facility] TDAP 2017-02-28 00:00:00 Completed [facility] TDAP 2017-02-28 00:00:00 Completed [facility] TDAP 2017-02-28 00:00:00 Completed [facility] TDAP 2017-02-28 00:00:00 Completed [facility] TDAP 2017-02-28 00:00:00 Completed [facility] TDAP 2017-02-28 00:00:00 Completed [facility] TDAP 2017-02-28 00:00:00 Completed [facility] TDAP 2017-02-28 00:00:00 Completed [facility] TDAP 2017-02-28 00:00:00 Completed [facility] TDAP 2017-02-28 00:00:00 Completed [facility] TDAP 2017-02-28 00:00:00 Completed [facility] TDAP 2017-02-28 00:00:00 Completed [facility] TDAP 2017-02-28 00:00:00 Completed [facility] TDAP 2017-02-28 00:00:00 Completed [facility] TDAP 2017-02-28 00:00:00 Completed [facility] TDAP 2017-02-28 00:00:00 Completed [facility] TDAP 2017-02-28 00:00:00 Completed [facility] TDAP 2017-02-28 00:00:00 Completed [facility] TDAP 2017-02-28 00:00:00 Completed [facility] TDAP 2017-02-28 00:00:00 Completed [facility] TDAP 2017-02-28 00:00:00 Completed [facility] TDAP 2017-02-28 00:00:00 Completed [facility] TDAP 2017-02-28 00:00:00 Completed [facility] TDAP 2017-02-28 00:00:00 Completed [facility] TDAP 2017-02-28 00:00:00 Completed [facility] TDAP 2017-02-28 00:00:00 Completed [facility] TDAP 2017-02-28 00:00:00 Completed [facility] TDAP 2017-02-28 00:00:00 Completed [facility] TDAP 2017-02-28 00:00:00 Completed [facility] TDAP 2017-02-28 00:00:00 Completed [facility] TDAP 2017-02-28 00:00:00 Completed [facility] TDAP 2017-02-28 00:00:00 Completed [facility] TDAP 2017-02-28 00:00:00 Completed [facility] TDAP 2017-02-28 00:00:00 Completed [facility] TDAP 2017-02-28 00:00:00 Completed [facility] TDAP 2017-02-28 00:00:00 Completed [facility] TDAP 2017-02-28 00:00:00 Completed [facility] TDAP 2017-02-28 00:00:00 Completed [facility] TDAP 2017-02-28 00:00:00 Completed [facility] TDAP 2017-02-28 00:00:00 Completed [facility] TDAP 2017-02-28 00:00:00 Completed [facility] TDAP 2017-02-28 00:00:00 Completed [facility] TDAP 2017-02-28 00:00:00 Completed [facility] TDAP 2017-02-28 00:00:00 Completed [facility] TDAP 2017-02-28 00:00:00 Completed [facility] TDAP 2017-02-28 00:00:00 Completed [facility] TDAP 2017-02-28 00:00:00 Completed [facility] TDAP 2017-02-28 00:00:00 Completed [facility] TDAP 2012-08-26 00:00:00 Completed [facility] TDAP 2012-08-26 00:00:00 Completed [facility] TDAP 2012-08-26 00:00:00 Completed [facility] TDAP 2012-08-26 00:00:00 Completed [facility] TDAP 2012-08-26 00:00:00 Completed [facility] TDAP 2012-08-26 00:00:00 Completed [facility] TDAP 2012-08-26 00:00:00 Completed [facility] TDAP 2012-08-26 00:00:00 Completed [facility] TDAP 2012-08-26 00:00:00 Completed [facility] TDAP 2012-08-26 00:00:00 Completed [facility] TDAP 2012-08-26 00:00:00 Completed [facility] TDAP 2012-08-26 00:00:00 Completed [facility] TDAP 2012-08-26 00:00:00 Completed [facility] TDAP 2012-08-26 00:00:00 Completed [facility] TDAP 2012-08-26 00:00:00 Completed [facility] TDAP 2012-08-26 00:00:00 Completed [facility] TDAP 2012-08-26 00:00:00 Completed [facility] TDAP 2012-08-26 00:00:00 Completed [facility] TDAP 2012-08-26 00:00:00 Completed [facility] TDAP 2012-08-26 00:00:00 Completed [facility] TDAP 2012-08-26 00:00:00 Completed [facility] TDAP 2012-08-26 00:00:00 Completed [facility] TDAP 2012-08-26 00:00:00 Completed [facility] TDAP 2012-08-26 00:00:00 Completed [facility] TDAP 2012-08-26 00:00:00 Completed [facility] TDAP 2012-08-26 00:00:00 Completed [facility] TDAP 2012-08-26 00:00:00 Completed [facility] TDAP 2012-08-26 00:00:00 Completed [facility] TDAP 2012-08-26 00:00:00 Completed [facility] TDAP 2012-08-26 00:00:00 Completed [facility] TDAP 2012-08-26 00:00:00 Completed [facility] TDAP 2012-08-26 00:00:00 Completed [facility] TDAP 2012-08-26 00:00:00 Completed [facility] TDAP 2012-08-26 00:00:00 Completed [facility] TDAP 2012-08-26 00:00:00 Completed [facility] TDAP 2012-08-26 00:00:00 Completed [facility] TDAP 2012-08-26 00:00:00 Completed [facility] TDAP 2012-08-26 00:00:00 Completed [facility] TDAP 2012-08-26 00:00:00 Completed [facility] TDAP 2012-08-26 00:00:00 Completed [facility] TDAP 2012-08-26 00:00:00 Completed [facility] TDAP 2012-08-26 00:00:00 Completed [facility] TDAP 2012-08-26 00:00:00 Completed [facility] TDAP 2012-08-26 00:00:00 Completed [facility] TDAP 2012-08-26 00:00:00 Completed [facility] TDAP 2012-08-26 00:00:00 Completed [facility] TDAP 2012-08-26 00:00:00 Completed [facility] TDAP 2012-08-26 00:00:00 Completed [facility] TDAP 2012-08-26 00:00:00 Completed [facility] TDAP 2012-08-26 00:00:00 Completed [facility] TDAP 2012-08-26 00:00:00 Completed [facility] TDAP 2012-08-26 00:00:00 Completed [facility] TDAP 2012-08-26 00:00:00 Completed [facility] TDAP 2012-08-26 00:00:00 Completed [facility] TDAP 2012-08-26 00:00:00 Completed [facility] TDAP 2012-08-26 00:00:00 Completed [facility] TDAP 2012-08-26 00:00:00 Completed [facility] TDAP 2012-08-26 00:00:00 Completed [facility] TDAP 2012-08-26 00:00:00 Completed [facility] TDAP 2012-08-26 00:00:00 Completed [facility] TDAP 2012-08-26 00:00:00 Completed [facility] TDAP 2012-08-26 00:00:00 Completed [facility] TDAP 2012-08-26 00:00:00 Completed [facility] TDAP 2012-08-26 00:00:00 Completed [facility] TDAP 2012-08-26 00:00:00 Completed [facility] TDAP 2012-08-26 00:00:00 Completed [facility] TDAP 2012-08-26 00:00:00 Completed [facility] TDAP 2012-08-26 00:00:00 Completed [facility] TDAP 2012-08-26 00:00:00 Completed [facility] TDAP 2012-08-26 00:00:00 Completed [facility] TDAP 2012-08-26 00:00:00 Completed [facility] TDAP 2012-08-26 00:00:00 Completed [facility] TDAP 2012-08-26 00:00:00 Completed [facility] TDAP 2012-08-26 00:00:00 Completed [facility] TDAP 2012-08-26 00:00:00 Completed [facility] TDAP 2012-08-26 00:00:00 Completed [facility] TDAP 2012-08-26 00:00:00 Completed [facility] TDAP 2012-08-26 00:00:00 Completed [facility] TDAP 2012-08-26 00:00:00 Completed [facility] TDAP 2012-08-26 00:00:00 Completed [facility] TDAP 2012-08-26 00:00:00 Completed [facility] TDAP 2012-08-26 00:00:00 Completed [facility] TDAP 2012-08-26 00:00:00 Completed [facility] TDAP 2012-08-26 00:00:00 Completed [facility] TDAP 2012-08-26 00:00:00 Completed [facility] TDAP 2012-08-26 00:00:00 Completed [facility] TDAP 2012-08-26 00:00:00 Completed [facility] TDAP 2012-08-26 00:00:00 Completed [facility] TDAP 2012-08-26 00:00:00 Completed [facility] TDAP 2012-08-26 00:00:00 Completed [facility] TDAP 2012-08-26 00:00:00 Completed [facility] TDAP 2012-08-26 00:00:00 Completed [facility] TDAP 2012-08-26 00:00:00 Completed [facility] TDAP 2012-08-26 00:00:00 Completed [facility] TDAP 2012-08-26 00:00:00 Completed [facility] TDAP 2012-08-26 00:00:00 Completed [facility] TDAP 2012-08-26 00:00:00 Completed [facility] TDAP 2012-08-26 00:00:00 Completed [facility] TDAP 2012-08-26 00:00:00 Completed [facility] TDAP 2012-08-26 00:00:00 Completed [facility] TDAP 2012-08-26 00:00:00 Completed [facility] TDAP 2012-08-26 00:00:00 Completed [facility] TDAP 2012-08-26 00:00:00 Completed [facility] TDAP 2012-08-26 00:00:00 Completed [facility] TDAP 2012-08-26 00:00:00 Completed [facility] TDAP 2012-08-26 00:00:00 Completed [facility] TDAP 2012-08-26 00:00:00 Completed [facility] TDAP 2012-08-26 00:00:00 Completed [facility] TDAP 2012-08-26 00:00:00 Completed [facility] TDAP 2012-08-26 00:00:00 Completed [facility] TDAP 2012-08-26 00:00:00 Completed [facility] TDAP 2012-08-26 00:00:00 Completed [facility] TDAP 2012-08-26 00:00:00 Completed [facility] TDAP 2012-08-26 00:00:00 Completed [facility] TDAP 2012-08-26 00:00:00 Completed [facility] TDAP 2012-08-26 00:00:00 Completed [facility] TDAP 2012-08-26 00:00:00 Completed [facility] TDAP 2012-08-26 00:00:00 Completed [facility] TDAP 2012-08-26 00:00:00 Completed [facility] TDAP 2012-08-26 00:00:00 Completed [facility] TDAP 2012-08-26 00:00:00 Completed [facility] TDAP 2012-08-26 00:00:00 Completed [facility] TDAP 2012-08-26 00:00:00 Completed [facility] TDAP 2012-08-26 00:00:00 Completed [facility] TDAP 2012-08-26 00:00:00 Completed [facility] TDAP 2012-08-26 00:00:00 Completed [facility] TDAP 2012-08-26 00:00:00 Completed [facility] TDAP 2012-08-26 00:00:00 Completed [facility] TDAP 2012-08-26 00:00:00 Completed [facility] TDAP 2012-08-26 00:00:00 Completed [facility] TDAP 2012-08-26 00:00:00 Completed [facility] TDAP 2012-08-26 00:00:00 Completed [facility] TDAP 2012-08-26 00:00:00 Completed [facility] TDAP 2012-08-26 00:00:00 Completed [facility] TDAP 2012-08-26 00:00:00 Completed [facility] TDAP 2012-08-26 00:00:00 Completed [facility] TDAP 2012-08-26 00:00:00 Completed [facility] TDAP 2012-08-26 00:00:00 Completed [facility] TDAP 2012-08-26 00:00:00 Completed [facility] TDAP 2012-08-26 00:00:00 Completed [facility] TDAP 2012-08-26 00:00:00 Completed [facility] TDAP 2012-08-26 00:00:00 Completed [facility] TDAP 2012-08-26 00:00:00 Completed [facility] TDAP 2012-08-26 00:00:00 Completed [facility] TDAP 2012-08-26 00:00:00 Completed [facility] TDAP 2012-08-26 00:00:00 Completed [facility] TDAP 2012-08-26 00:00:00 Completed [facility] TDAP 2012-08-26 00:00:00 Completed [facility] TDAP 2012-08-26 00:00:00 Completed [facility] TDAP 2012-08-26 00:00:00 Completed [facility] TDAP 2012-08-26 00:00:00 Completed [facility] TDAP 2012-08-26 00:00:00 Completed [facility] TDAP 2012-08-26 00:00:00 Completed [facility] TDAP 2012-08-26 00:00:00 Completed [facility] TDAP 2012-08-26 00:00:00 Completed [facility] TDAP 2012-08-26 00:00:00 Completed [facility] TDAP 2012-08-26 00:00:00 Completed [facility] TDAP 2012-08-26 00:00:00 Completed [facility] TDAP 2012-08-26 00:00:00 Completed [facility] TDAP 2012-08-26 00:00:00 Completed [facility] TDAP 2012-08-26 00:00:00 Completed [facility] TDAP 2012-08-26 00:00:00 Completed [facility] TDAP 2012-08-26 00:00:00 Completed [facility] TDAP 2012-08-26 00:00:00 Completed [facility] TDAP 2012-08-26 00:00:00 Completed [facility] TDAP 2012-08-26 00:00:00 Completed [facility] TDAP 2012-08-26 00:00:00 Completed [facility] TDAP 2012-08-26 00:00:00 Completed [facility] TDAP 2012-08-26 00:00:00 Completed [facility] TDAP 2012-08-26 00:00:00 Completed [facility] TDAP 2012-08-26 00:00:00 Completed [facility] TDAP 2012-08-26 00:00:00 Completed [facility] TDAP 2012-08-26 00:00:00 Completed [facility] TDAP 2012-08-26 00:00:00 Completed [facility] TDAP 2012-08-26 00:00:00 Completed [facility] TDAP 2012-08-26 00:00:00 Completed [facility] TDAP 2012-08-26 00:00:00 Completed [facility] TDAP 2012-08-26 00:00:00 Completed [facility] TDAP 2012-08-26 00:00:00 Completed [facility] TDAP 2012-08-26 00:00:00 Completed [facility] TDAP 2012-08-26 00:00:00 Completed [facility] TDAP 2012-08-26 00:00:00 Completed [facility] TDAP 2012-08-26 00:00:00 Completed [facility] TDAP 2012-08-26 00:00:00 Completed [facility] TDAP 2012-08-26 00:00:00 Completed [facility] TDAP 2012-08-26 00:00:00 Completed [facility] TDAP 2012-08-26 00:00:00 Completed [facility] TDAP 2012-08-26 00:00:00 Completed [facility] TDAP 2012-08-26 00:00:00 Completed [facility] TDAP 2012-08-26 00:00:00 Completed [facility] TDAP 2012-08-26 00:00:00 Completed [facility] TDAP 2012-08-26 00:00:00 Completed [facility] TDAP 2012-08-26 00:00:00 Completed [facility] TDAP 2012-08-26 00:00:00 Completed [facility] TDAP Unknown Completed [facility] MMR Unknown Completed [facility] Influenza Virus Vaccine Quad IM 3+ YRS Unknown Completed [facility] Influenza Virus Vaccine Quad .5 mL IM 6+ MO (FLUZONE/FLULAVAL/F LUARIX) Unknown Completed [facility] Pneumococcal Polysaccharide, PPSV23 (PNEUMOVAX) Unknown Completed [facility] TDAP Unknown Completed [facility] Influenza Virus Vaccine Quad .5 mL IM 6+ MO (FLUZONE/FLULAVAL/F LUARIX) Unknown Completed [facility] Influenza Virus Vaccine Unknown Completed [facility] Influenza Virus Vaccine Quad .5 mL IM 6+ MO (FLUZONE/FLULAVAL/F LUARIX) Unknown Completed [facility] TDAP Unknown Completed [facility] MMR Unknown Completed [facility] Influenza Virus Vaccine Quad IM 3+ YRS Unknown Completed [facility] Influenza Virus Vaccine Quad .5 mL IM 6+ MO (FLUZONE/FLULAVAL/F LUARIX) Unknown Completed [facility] Pneumococcal Polysaccharide, PPSV23 (PNEUMOVAX) Unknown Completed [facility] TDAP Unknown Completed [facility] Influenza Virus Vaccine Quad .5 mL IM 6+ MO (FLUZONE/FLULAVAL/F LUARIX) Unknown Completed [facility] Influenza Virus Vaccine Unknown Completed [facility] Influenza Virus Vaccine Quad .5 mL IM 6+ MO (FLUZONE/FLULAVAL/F LUARIX) Unknown Completed [facility] TDAP Unknown Completed [facility] MMR Unknown Completed [facility] Influenza Virus Vaccine Quad IM 3+ YRS Unknown Completed [facility] Influenza Virus Vaccine Quad .5 mL IM 6+ MO (FLUZONE/FLULAVAL/F LUARIX) Unknown Completed [facility] Pneumococcal Polysaccharide, PPSV23 (PNEUMOVAX) Unknown Completed [facility] TDAP Unknown Completed [facility] Influenza Virus Vaccine Quad .5 mL IM 6+ MO (FLUZONE/FLULAVAL/F LUARIX) Unknown Completed [facility] Influenza Virus Vaccine Unknown Completed [facility] Influenza Virus Vaccine Quad .5 mL IM 6+ MO (FLUZONE/FLULAVAL/F LUARIX) Unknown Completed [facility] TDAP Unknown Completed [facility] MMR Unknown Completed [facility] Influenza Virus Vaccine Quad IM 3+ YRS Unknown Completed [facility] Influenza Virus Vaccine Quad .5 mL IM 6+ MO (FLUZONE/FLULAVAL/F LUARIX) Unknown Completed [facility] Pneumococcal Polysaccharide, PPSV23 (PNEUMOVAX) Unknown Completed [facility] TDAP Unknown Completed [facility] Influenza Virus Vaccine Quad .5 mL IM 6+ MO (FLUZONE/FLULAVAL/F LUARIX) Unknown Completed [facility] Influenza Virus Vaccine Unknown Completed [facility] Influenza Virus Vaccine Quad .5 mL IM 6+ MO (FLUZONE/FLULAVAL/F LUARIX) Unknown Completed [facility] TDAP Unknown Completed [facility] MMR Unknown Completed [facility] Influenza Virus Vaccine Quad IM 3+ YRS Unknown Completed [facility] Influenza Virus Vaccine Quad .5 mL IM 6+ MO (FLUZONE/FLULAVAL/F LUARIX) Unknown Completed [facility] Pneumococcal Polysaccharide, PPSV23 (PNEUMOVAX) Unknown Completed [facility] TDAP Unknown Completed [facility] Influenza Virus Vaccine Quad .5 mL IM 6+ MO (FLUZONE/FLULAVAL/F LUARIX) Unknown Completed [facility] Influenza Virus Vaccine Unknown Completed [facility] Influenza Virus Vaccine Quad .5 mL IM 6+ MO (FLUZONE/FLULAVAL/F LUARIX) Unknown Completed [facility] TDAP Unknown Completed [facility] MMR Unknown Completed [facility] Influenza Virus Vaccine Quad IM 3+ YRS Unknown Completed [facility] Influenza Virus Vaccine Quad .5 mL IM 6+ MO (FLUZONE/FLULAVAL/F LUARIX) Unknown Completed [facility] Pneumococcal Polysaccharide, PPSV23 (PNEUMOVAX) Unknown Completed [facility] TDAP Unknown Completed [facility] Influenza Virus Vaccine Quad .5 mL IM 6+ MO (FLUZONE/FLULAVAL/F LUARIX) Unknown Completed [facility] Influenza Virus Vaccine Unknown Completed [facility] Influenza Virus Vaccine Quad .5 mL IM 6+ MO (FLUZONE/FLULAVAL/F LUARIX) Unknown Completed [facility] TDAP Unknown Completed [facility] MMR Unknown Completed [facility] Influenza Virus Vaccine Quad IM 3+ YRS Unknown Completed [facility] Influenza Virus Vaccine Quad .5 mL IM 6+ MO (FLUZONE/FLULAVAL/F LUARIX) Unknown Completed [facility] Pneumococcal Polysaccharide, PPSV23 (PNEUMOVAX) Unknown Completed [facility] TDAP Unknown Completed [facility] Influenza Virus Vaccine Quad .5 mL IM 6+ MO (FLUZONE/FLULAVAL/F LUARIX) Unknown Completed [facility] Influenza Virus Vaccine Unknown Completed [facility] Influenza Virus Vaccine Quad .5 mL IM 6+ MO (FLUZONE/FLULAVAL/F LUARIX) Unknown Completed [facility] TDAP Unknown Completed [facility] MMR Unknown Completed [facility] Influenza Virus Vaccine Quad IM 3+ YRS Unknown Completed [facility] Influenza Virus Vaccine Quad .5 mL IM 6+ MO (FLUZONE/FLULAVAL/F LUARIX) Unknown Completed [facility] Pneumococcal Polysaccharide, PPSV23 (PNEUMOVAX) Unknown Completed [facility] TDAP Unknown Completed [facility] Influenza Virus Vaccine Quad .5 mL IM 6+ MO (FLUZONE/FLULAVAL/F LUARIX) Unknown Completed [facility] Influenza Virus Vaccine Unknown Completed [facility] Influenza Virus Vaccine Quad .5 mL IM 6+ MO (FLUZONE/FLULAVAL/F LUARIX) Unknown Completed [facility] TDAP Unknown Completed [facility] MMR Unknown Completed [facility] Influenza Virus Vaccine Quad IM 3+ YRS Unknown Completed [facility] Influenza Virus Vaccine Quad .5 mL IM 6+ MO (FLUZONE/FLULAVAL/F LUARIX) Unknown Completed [facility] Pneumococcal Polysaccharide, PPSV23 (PNEUMOVAX) Unknown Completed [facility] TDAP Unknown Completed [facility] Influenza Virus Vaccine Quad .5 mL IM 6+ MO (FLUZONE/FLULAVAL/F LUARIX) Unknown Completed [facility] Influenza Virus Vaccine Unknown Completed [facility] Influenza Virus Vaccine Quad .5 mL IM 6+ MO (FLUZONE/FLULAVAL/F LUARIX) Unknown Completed [facility] TDAP Unknown Completed [facility] MMR Unknown Completed [facility] Influenza Virus Vaccine Quad IM 3+ YRS Unknown Completed [facility] Influenza Virus Vaccine Quad .5 mL IM 6+ MO (FLUZONE/FLULAVAL/F LUARIX) Unknown Completed [facility] Pneumococcal Polysaccharide, PPSV23 (PNEUMOVAX) Unknown Completed [facility] TDAP Unknown Completed [facility] Influenza Virus Vaccine Quad .5 mL IM 6+ MO (FLUZONE/FLULAVAL/F LUARIX) Unknown Completed [facility] Influenza Virus Vaccine Unknown Completed [facility] Influenza Virus Vaccine Quad .5 mL IM 6+ MO (FLUZONE/FLULAVAL/F LUARIX) Unknown Completed [facility] TDAP Unknown Completed [facility] MMR Unknown Completed [facility] Influenza Virus Vaccine Quad IM 3+ YRS Unknown Completed [facility] Influenza Virus Vaccine Quad .5 mL IM 6+ MO (FLUZONE/FLULAVAL/F LUARIX) Unknown Completed [facility] Pneumococcal Polysaccharide, PPSV23 (PNEUMOVAX) Unknown Completed [facility] TDAP Unknown Completed [facility] Influenza Virus Vaccine Quad .5 mL IM 6+ MO (FLUZONE/FLULAVAL/F LUARIX) Unknown Completed [facility] Influenza Virus Vaccine Unknown Completed [facility] Influenza Virus Vaccine Quad .5 mL IM 6+ MO (FLUZONE/FLULAVAL/F LUARIX) Unknown Completed [facility] TDAP Unknown Completed [facility] MMR Unknown Completed [facility] Influenza Virus Vaccine Quad IM 3+ YRS Unknown Completed [facility] Influenza Virus Vaccine Quad .5 mL IM 6+ MO (FLUZONE/FLULAVAL/F LUARIX) Unknown Completed [facility] Pneumococcal Polysaccharide, PPSV23 (PNEUMOVAX) Unknown Completed [facility] TDAP Unknown Completed [facility] Influenza Virus Vaccine Quad .5 mL IM 6+ MO (FLUZONE/FLULAVAL/F LUARIX) Unknown Completed [facility] Influenza Virus Vaccine Unknown Completed [facility] Influenza Virus Vaccine Quad .5 mL IM 6+ MO (FLUZONE/FLULAVAL/F LUARIX) Unknown Completed [facility] TDAP Unknown Completed [facility] MMR Unknown Completed [facility] Influenza Virus Vaccine Quad IM 3+ YRS Unknown Completed [facility] Influenza Virus Vaccine Quad .5 mL IM 6+ MO (FLUZONE/FLULAVAL/F LUARIX) Unknown Completed [facility] Pneumococcal Polysaccharide, PPSV23 (PNEUMOVAX) Unknown Completed [facility] TDAP Unknown Completed [facility] Influenza Virus Vaccine Quad .5 mL IM 6+ MO (FLUZONE/FLULAVAL/F LUARIX) Unknown Completed [facility] System MMR Unknown Completed [facility] Influenza Virus Vaccine Quad IM 3+ YRS Unknown Completed [facility] Influenza Virus Vaccine Quad .5 mL IM 6+ MO (FLUZONE/FLULAVAL/F LUARIX) Unknown Completed [facility] Pneumococcal Polysaccharide, PPSV23 (PNEUMOVAX) Unknown Completed [facility] TDAP Unknown Completed [facility] Influenza Virus Vaccine Quad .5 mL IM 6+ MO (FLUZONE/FLULAVAL/F LUARIX) Unknown Completed [facility] TDAP Unknown Completed [facility] MMR Unknown Completed [facility] Influenza Virus Vaccine Quad IM 3+ YRS Unknown Completed [facility] Influenza Virus Vaccine Quad .5 mL IM 6+ MO (FLUZONE/FLULAVAL/F LUARIX) Unknown Completed [facility] Pneumococcal Polysaccharide, PPSV23 (PNEUMOVAX) Unknown Completed [facility] TDAP Unknown Completed [facility] Influenza Virus Vaccine Quad .5 mL IM 6+ MO (FLUZONE/FLULAVAL/F LUARIX) Unknown Completed [facility] TDAP Unknown Completed [facility] MMR Unknown Completed [facility] Influenza Virus Vaccine Quad IM 3+ YRS Unknown Completed [facility] Influenza Virus Vaccine Quad .5 mL IM 6+ MO (FLUZONE/FLULAVAL/F LUARIX) Unknown Completed [facility] Pneumococcal Polysaccharide, PPSV23 (PNEUMOVAX) Unknown Completed [facility] TDAP Unknown Completed [facility] Influenza Virus Vaccine Quad .5 mL IM 6+ MO (FLUZONE/FLULAVAL/F LUARIX) Unknown Completed [facility] TDAP Unknown Completed [facility] MMR Unknown Completed [facility] Influenza Virus Vaccine Quad IM 3+ YRS Unknown Completed [facility] Influenza Virus Vaccine Quad .5 mL IM 6+ MO (FLUZONE/FLULAVAL/F LUARIX) Unknown Completed [facility] Pneumococcal Polysaccharide, PPSV23 (PNEUMOVAX) Unknown Completed [facility] TDAP Unknown Completed [facility] Influenza Virus Vaccine Quad .5 mL IM 6+ MO (FLUZONE/FLULAVAL/F LUARIX) Unknown Completed [facility] TDAP Unknown Completed [facility] MMR Unknown Completed [facility] Influenza Virus Vaccine Quad IM 3+ YRS Unknown Completed [facility] Influenza Virus Vaccine Quad .5 mL IM 6+ MO (FLUZONE/FLULAVAL/F LUARIX) Unknown Completed [facility] Pneumococcal Polysaccharide, PPSV23 (PNEUMOVAX) Unknown Completed [facility] TDAP Unknown Completed [facility] TDAP Unknown Completed [facility] MMR Unknown Completed [facility] Influenza Virus Vaccine Quad IM 3+ YRS Unknown Completed [facility] Influenza Virus Vaccine Quad .5 mL IM 6+ MO (FLUZONE/FLULAVAL/F LUARIX) Unknown Completed [facility] Pneumococcal Polysaccharide, PPSV23 (PNEUMOVAX) Unknown Completed [facility] TDAP Unknown Completed [facility] TDAP Unknown Completed [facility] MMR Unknown Completed [facility] Influenza Virus Vaccine Quad IM 3+ YRS Unknown Completed [facility] Influenza Virus Vaccine Quad .5 mL IM 6+ MO (FLUZONE/FLULAVAL/F LUARIX) Unknown Completed [facility] Pneumococcal Polysaccharide, PPSV23 (PNEUMOVAX) Unknown Completed [facility] TDAP Unknown Completed [facility] TDAP Unknown Completed [facility] MMR Unknown Completed [facility] Influenza Virus Vaccine Quad IM 3+ YRS Unknown Completed [facility] Influenza Virus Vaccine Quad .5 mL IM 6+ MO (FLUZONE/FLULAVAL/F LUARIX) Unknown Completed [facility] Pneumococcal Polysaccharide, PPSV23 (PNEUMOVAX) Unknown Completed [facility] TDAP Unknown Completed [facility] TDAP Unknown Completed [facility] MMR Unknown Completed [facility] Influenza Virus Vaccine Quad IM 3+ YRS Unknown Completed [facility] Influenza Virus Vaccine Quad .5 mL IM 6+ MO (FLUZONE/FLULAVAL/F LUARIX) Unknown Completed [facility] Pneumococcal Polysaccharide, PPSV23 (PNEUMOVAX) Unknown Completed [facility] TDAP Unknown Completed [facility] TDAP Unknown Completed [facility] MMR Unknown Completed [facility] Influenza Virus Vaccine Quad IM 3+ YRS Unknown Completed [facility] Influenza Virus Vaccine Quad .5 mL IM 6+ MO (FLUZONE/FLULAVAL/F LUARIX) Unknown Completed [facility] Pneumococcal Polysaccharide, PPSV23 (PNEUMOVAX) Unknown Completed [facility] TDAP Unknown Completed [facility] TDAP Unknown Completed [facility] MMR Unknown Completed [facility] Influenza Virus Vaccine Quad IM 3+ YRS Unknown Completed [facility] Influenza Virus Vaccine Quad .5 mL IM 6+ MO (FLUZONE/FLULAVAL/F LUARIX) Unknown Completed [facility] Pneumococcal Polysaccharide, PPSV23 (PNEUMOVAX) Unknown Completed [facility] TDAP Unknown Completed [facility] TDAP Unknown Completed [facility] MMR Unknown Completed [facility] Influenza Virus Vaccine Quad IM 3+ YRS Unknown Completed [facility] Influenza Virus Vaccine Quad .5 mL IM 6+ MO (FLUZONE/FLULAVAL/F LUARIX) Unknown Completed [facility] TDAP Unknown Completed [facility] TDAP Unknown Completed [facility] MMR Unknown Completed [facility] Influenza Virus Vaccine Quad IM 3+ YRS Unknown Completed [facility] Influenza Virus Vaccine Quad .5 mL IM 6+ MO (FLUZONE/FLULAVAL/F LUARIX) Unknown Completed [facility] TDAP Unknown Completed [facility] TDAP Unknown Completed [facility] MMR Unknown Completed [facility] Influenza Virus Vaccine Quad IM 3+ YRS Unknown Completed [facility] Influenza Virus Vaccine Quad .5 mL IM 6+ MO (FLUZONE/FLULAVAL/F LUARIX) Unknown Completed [facility] TDAP Unknown Completed [facility] TDAP Unknown Completed [facility] MMR Unknown Completed [facility] Influenza Virus Vaccine Quad IM 3+ YRS Unknown Completed [facility] TDAP Unknown Completed [facility] TDAP Unknown Completed [facility] MMR Unknown Completed [facility] Influenza Virus Vaccine Quad IM 3+ YRS Unknown Completed [facility] Influenza Virus Vaccine Quad .5 mL IM 6+ MO (FLUZONE/FLULAVAL/F LUARIX) Unknown Completed [facility] Pneumococcal Polysaccharide, PPSV23 (PNEUMOVAX) Unknown Completed [facility] TDAP Unknown Completed [facility] Influenza Virus Vaccine Quad .5 mL IM 6+ MO (FLUZONE/FLULAVAL/F LUARIX) Unknown Completed [facility] Influenza Virus Vaccine Unknown Completed [facility] Influenza Virus Vaccine Quad .5 mL IM 6+ MO (FLUZONE/FLULAVAL/F LUARIX) Unknown Completed [facility] TDAP Unknown Completed [facility] MMR Unknown Completed [facility] Influenza Virus Vaccine Quad IM 3+ YRS Unknown Completed [facility] Influenza Virus Vaccine Quad .5 mL IM 6+ MO (FLUZONE/FLULAVAL/F LUARIX) Unknown Completed [facility] Pneumococcal Polysaccharide, PPSV23 (PNEUMOVAX) Unknown Completed [facility] TDAP Unknown Completed [facility] Influenza Virus Vaccine Quad .5 mL IM 6+ MO (FLUZONE/FLULAVAL/F LUARIX) Unknown Completed [facility] Influenza Virus Vaccine Unknown Completed [facility] Influenza Virus Vaccine Quad .5 mL IM 6+ MO (FLUZONE/FLULAVAL/F LUARIX) Unknown Completed [facility] TDAP Unknown Completed [facility] MMR Unknown Completed [facility] Influenza Virus Vaccine Quad IM 3+ YRS Unknown Completed [facility] Influenza Virus Vaccine Quad .5 mL IM 6+ MO (FLUZONE/FLULAVAL/F LUARIX) Unknown Completed [facility] Pneumococcal Polysaccharide, PPSV23 (PNEUMOVAX) Unknown Completed [facility] TDAP Unknown Completed [facility] Influenza Virus Vaccine Quad .5 mL IM 6+ MO (FLUZONE/FLULAVAL/F LUARIX) Unknown Completed [facility] Influenza Virus Vaccine Unknown Completed [facility] Influenza Virus Vaccine Quad .5 mL IM 6+ MO (FLUZONE/FLULAVAL/F LUARIX) Unknown Completed [facility] TDAP Unknown Completed [facility] MMR Unknown Completed [facility] Influenza Virus Vaccine Quad IM 3+ YRS Unknown Completed [facility] Influenza Virus Vaccine Quad .5 mL IM 6+ MO (FLUZONE/FLULAVAL/F LUARIX) Unknown Completed [facility] Pneumococcal Polysaccharide, PPSV23 (PNEUMOVAX) Unknown Completed [facility] TDAP Unknown Completed [facility] Influenza Virus Vaccine Quad .5 mL IM 6+ MO (FLUZONE/FLULAVAL/F LUARIX) Unknown Completed [facility] Influenza Virus Vaccine Unknown Completed [facility] Influenza Virus Vaccine Quad .5 mL IM 6+ MO (FLUZONE/FLULAVAL/F LUARIX) Unknown Completed [facility] TDAP Unknown Completed [facility] MMR Unknown Completed [facility] Influenza Virus Vaccine Quad IM 3+ YRS Unknown Completed [facility] Influenza Virus Vaccine Quad .5 mL IM 6+ MO (FLUZONE/FLULAVAL/F LUARIX) Unknown Completed [facility] Pneumococcal Polysaccharide, PPSV23 (PNEUMOVAX) Unknown Completed [facility] TDAP Unknown Completed [facility] Influenza Virus Vaccine Quad .5 mL IM 6+ MO (FLUZONE/FLULAVAL/F LUARIX) Unknown Completed [facility] Influenza Virus Vaccine Unknown Completed [facility] Influenza Virus Vaccine Quad .5 mL IM 6+ MO (FLUZONE/FLULAVAL/F LUARIX) Unknown Completed [facility] TDAP Unknown Completed [facility] MMR Unknown Completed [facility] Influenza Virus Vaccine Quad IM 3+ YRS Unknown Completed [facility] Influenza Virus Vaccine Quad .5 mL IM 6+ MO (FLUZONE/FLULAVAL/F LUARIX) Unknown Completed [facility] Pneumococcal Polysaccharide, PPSV23 (PNEUMOVAX) Unknown Completed [facility] TDAP Unknown Completed [facility] Influenza Virus Vaccine Quad .5 mL IM 6+ MO (FLUZONE/FLULAVAL/F LUARIX) Unknown Completed [facility] Influenza Virus Vaccine Unknown Completed [facility] Influenza Virus Vaccine Quad .5 mL IM 6+ MO (FLUZONE/FLULAVAL/F LUARIX) Unknown Completed [facility] Pneumococcal Polysaccharide, PPSV23 (PNEUMOVAX) Unknown Completed [facility] Influenza Virus Vaccine Quad IM, Preserv and ABX Free 6 MO-64 YRS (FLUCELVAX) Unknown Completed [facility] TDAP Unknown Completed [facility] MMR Unknown Completed [facility] Influenza Virus Vaccine Quad IM 3+ YRS Unknown Completed [facility] Influenza Virus Vaccine Quad .5 mL IM 6+ MO (FLUZONE/FLULAVAL/F LUARIX) Unknown Completed [facility] Pneumococcal Polysaccharide, PPSV23 (PNEUMOVAX) Unknown Completed [facility] TDAP Unknown Completed [facility] Influenza Virus Vaccine Quad .5 mL IM 6+ MO (FLUZONE/FLULAVAL/F LUARIX) Unknown Completed [facility] Influenza Virus Vaccine Unknown Completed [facility] Influenza Virus Vaccine Quad .5 mL IM 6+ MO (FLUZONE/FLULAVAL/F LUARIX) Unknown Completed [facility] Pneumococcal Polysaccharide, PPSV23 (PNEUMOVAX) Unknown Completed [facility] Influenza Virus Vaccine Quad IM, Preserv and ABX Free 6 MO-64 YRS (FLUCELVAX) Unknown Completed [facility] TDAP Unknown Completed [facility] MMR Unknown Completed [facility] Influenza Virus Vaccine Quad IM 3+ YRS Unknown Completed [facility] Influenza Virus Vaccine Quad .5 mL IM 6+ MO (FLUZONE/FLULAVAL/F LUARIX) Unknown Completed [facility] Pneumococcal Polysaccharide, PPSV23 (PNEUMOVAX) Unknown Completed [facility] TDAP Unknown Completed [facility] Influenza Virus Vaccine Quad .5 mL IM 6+ MO (FLUZONE/FLULAVAL/F LUARIX) Unknown Completed [facility] Influenza Virus Vaccine Unknown Completed [facility] Influenza Virus Vaccine Quad .5 mL IM 6+ MO (FLUZONE/FLULAVAL/F LUARIX) Unknown Completed [facility] Pneumococcal Polysaccharide, PPSV23 (PNEUMOVAX) Unknown Completed [facility] Influenza Virus Vaccine Quad IM, Preserv and ABX Free 6 MO-64 YRS (FLUCELVAX) Unknown Completed [facility] TDAP Unknown Completed [facility] MMR Unknown Completed [facility] Influenza Virus Vaccine Quad IM 3+ YRS Unknown Completed [facility] Influenza Virus Vaccine Quad .5 mL IM 6+ MO (FLUZONE/FLULAVAL/F LUARIX) Unknown Completed [facility] Pneumococcal Polysaccharide, PPSV23 (PNEUMOVAX) Unknown Completed [facility] TDAP Unknown Completed [facility] Influenza Virus Vaccine Quad .5 mL IM 6+ MO (FLUZONE/FLULAVAL/F LUARIX) Unknown Completed [facility] Influenza Virus Vaccine Unknown Completed [facility] Influenza Virus Vaccine Quad .5 mL IM 6+ MO (FLUZONE/FLULAVAL/F LUARIX) Unknown Completed [facility] TDAP Unknown Completed [facility] MMR Unknown Completed [facility] Influenza Virus Vaccine Quad IM 3+ YRS Unknown Completed [facility] Influenza Virus Vaccine Quad .5 mL IM 6+ MO (FLUZONE/FLULAVAL/F LUARIX) Unknown Completed [facility] Pneumococcal Polysaccharide, PPSV23 (PNEUMOVAX) Unknown Completed [facility] TDAP Unknown Completed [facility] Influenza Virus Vaccine Quad .5 mL IM 6+ MO (FLUZONE/FLULAVAL/F LUARIX) Unknown Completed [facility] Influenza Virus Vaccine Unknown Completed [facility] Influenza Virus Vaccine Quad .5 mL IM 6+ MO (FLUZONE/FLULAVAL/F LUARIX) Unknown Completed [facility] Pneumococcal Polysaccharide, PPSV23 (PNEUMOVAX) Unknown Completed [facility] Influenza Virus Vaccine Quad IM, Preserv and ABX Free 6 MO-64 YRS (FLUCELVAX) Unknown Completed [facility] TDAP Unknown Completed [facility] MMR Unknown Completed [facility] Influenza Virus Vaccine Quad IM 3+ YRS Unknown Completed [facility] Influenza Virus Vaccine Quad .5 mL IM 6+ MO (FLUZONE/FLULAVAL/F LUARIX) Unknown Completed [facility] Pneumococcal Polysaccharide, PPSV23 (PNEUMOVAX) Unknown Completed [facility] TDAP Unknown Completed [facility] Influenza Virus Vaccine Quad .5 mL IM 6+ MO (FLUZONE/FLULAVAL/F LUARIX) Unknown Completed [facility] Influenza Virus Vaccine Unknown Completed [facility] Influenza Virus Vaccine Quad .5 mL IM 6+ MO (FLUZONE/FLULAVAL/F LUARIX) Unknown Completed [facility] Pneumococcal Polysaccharide, PPSV23 (PNEUMOVAX) Unknown Completed [facility] Influenza Virus Vaccine Quad IM, Preserv and ABX Free 6 MO-64 YRS (FLUCELVAX) Unknown Completed [facility] TDAP Unknown Completed [facility] MMR Unknown Completed [facility] Influenza Virus Vaccine Quad IM 3+ YRS Unknown Completed [facility] Influenza Virus Vaccine Quad .5 mL IM 6+ MO (FLUZONE/FLULAVAL/F LUARIX) Unknown Completed [facility] Pneumococcal Polysaccharide, PPSV23 (PNEUMOVAX) Unknown Completed [facility] TDAP Unknown Completed [facility] Influenza Virus Vaccine Quad .5 mL IM 6+ MO (FLUZONE/FLULAVAL/F LUARIX) Unknown Completed [facility] Influenza Virus Vaccine Unknown Completed [facility] Influenza Virus Vaccine Quad .5 mL IM 6+ MO (FLUZONE/FLULAVAL/F LUARIX) Unknown Completed [facility] Pneumococcal Polysaccharide, PPSV23 (PNEUMOVAX) Unknown Completed [facility] Influenza Virus Vaccine Quad IM, Preserv and ABX Free 6 MO-64 YRS (FLUCELVAX) Unknown Completed [facility] TDAP Unknown Completed [facility] MMR Unknown Completed [facility] Influenza Virus Vaccine Quad IM 3+ YRS Unknown Completed [facility] Influenza Virus Vaccine Quad .5 mL IM 6+ MO (FLUZONE/FLULAVAL/F LUARIX) Unknown Completed [facility] Pneumococcal Polysaccharide, PPSV23 (PNEUMOVAX) Unknown Completed [facility] TDAP Unknown Completed [facility] Influenza Virus Vaccine Quad .5 mL IM 6+ MO (FLUZONE/FLULAVAL/F LUARIX) Unknown Completed [facility] Influenza Virus Vaccine Unknown Completed [facility] Influenza Virus Vaccine Quad .5 mL IM 6+ MO (FLUZONE/FLULAVAL/F LUARIX) Unknown Completed [facility] Pneumococcal Polysaccharide, PPSV23 (PNEUMOVAX) Unknown Completed [facility] Influenza Virus Vaccine Quad IM, Preserv and ABX Free 6 MO-64 YRS (FLUCELVAX) Unknown Completed [facility] TDAP Unknown Completed [facility] MMR Unknown Completed [facility] Influenza Virus Vaccine Quad IM 3+ YRS Unknown Completed [facility] Influenza Virus Vaccine Quad .5 mL IM 6+ MO (FLUZONE/FLULAVAL/F LUARIX) Unknown Completed [facility] Pneumococcal Polysaccharide, PPSV23 (PNEUMOVAX) Unknown Completed [facility] TDAP Unknown Completed [facility] Influenza Virus Vaccine Quad .5 mL IM 6+ MO (FLUZONE/FLULAVAL/F LUARIX) Unknown Completed [facility] Influenza Virus Vaccine Unknown Completed [facility] Influenza Virus Vaccine Quad .5 mL IM 6+ MO (FLUZONE/FLULAVAL/F LUARIX) Unknown Completed [facility] Pneumococcal Polysaccharide, PPSV23 (PNEUMOVAX) Unknown Completed [facility] Influenza Virus Vaccine Quad IM, Preserv and ABX Free 6 MO-64 YRS (FLUCELVAX) Unknown Completed [facility] TDAP Unknown Completed [facility] MMR Unknown Completed [facility] Influenza Virus Vaccine Quad IM 3+ YRS Unknown Completed [facility] Influenza Virus Vaccine Quad .5 mL IM 6+ MO (FLUZONE/FLULAVAL/F LUARIX) Unknown Completed [facility] Pneumococcal Polysaccharide, PPSV23 (PNEUMOVAX) Unknown Completed [facility] TDAP Unknown Completed [facility] Influenza Virus Vaccine Quad .5 mL IM 6+ MO (FLUZONE/FLULAVAL/F LUARIX) Unknown Completed [facility] Influenza Virus Vaccine Unknown Completed [facility] Influenza Virus Vaccine Quad .5 mL IM 6+ MO (FLUZONE/FLULAVAL/F LUARIX) Unknown Completed [facility] TDAP Unknown Completed [facility] MMR Unknown Completed [facility] Influenza Virus Vaccine Quad IM 3+ YRS Unknown Completed [facility] Influenza Virus Vaccine Quad .5 mL IM 6+ MO (FLUZONE/FLULAVAL/F LUARIX) Unknown Completed [facility] Pneumococcal Polysaccharide, PPSV23 (PNEUMOVAX) Unknown Completed [facility] TDAP Unknown Completed [facility] Influenza Virus Vaccine Quad .5 mL IM 6+ MO (FLUZONE/FLULAVAL/F LUARIX) Unknown Completed [facility] Influenza Virus Vaccine Unknown Completed [facility] Influenza Virus Vaccine Quad .5 mL IM 6+ MO (FLUZONE/FLULAVAL/F LUARIX) Unknown Completed [facility] Pneumococcal Polysaccharide, PPSV23 (PNEUMOVAX) Unknown Completed [facility] Influenza Virus Vaccine Quad IM, Preserv and ABX Free 6 MO-64 YRS (FLUCELVAX) Unknown Completed [facility] TDAP Unknown Completed [facility] MMR Unknown Completed [facility] Influenza Virus Vaccine Quad IM 3+ YRS Unknown Completed [facility] Influenza Virus Vaccine Quad .5 mL IM 6+ MO (FLUZONE/FLULAVAL/F LUARIX) Unknown Completed [facility] Pneumococcal Polysaccharide, PPSV23 (PNEUMOVAX) Unknown Completed [facility] TDAP Unknown Completed [facility] Influenza Virus Vaccine Quad .5 mL IM 6+ MO (FLUZONE/FLULAVAL/F LUARIX) Unknown Completed [facility] Influenza Virus Vaccine Unknown Completed [facility] Influenza Virus Vaccine Quad .5 mL IM 6+ MO (FLUZONE/FLULAVAL/F LUARIX) Unknown Completed [facility] Pneumococcal Polysaccharide, PPSV23 (PNEUMOVAX) Unknown Completed [facility] Influenza Virus Vaccine Quad IM, Preserv and ABX Free 6 MO-64 YRS (FLUCELVAX) Unknown Completed [facility] TDAP Unknown Completed [facility] MMR Unknown Completed [facility] Influenza Virus Vaccine Quad IM 3+ YRS Unknown Completed [facility] Influenza Virus Vaccine Quad .5 mL IM 6+ MO (FLUZONE/FLULAVAL/F LUARIX) Unknown Completed [facility] Pneumococcal Polysaccharide, PPSV23 (PNEUMOVAX) Unknown Completed [facility] TDAP Unknown Completed [facility] Influenza Virus Vaccine Quad .5 mL IM 6+ MO (FLUZONE/FLULAVAL/F LUARIX) Unknown Completed [facility] Influenza Virus Vaccine Unknown Completed [facility] Influenza Virus Vaccine Quad .5 mL IM 6+ MO (FLUZONE/FLULAVAL/F LUARIX) Unknown Completed [facility] Pneumococcal Polysaccharide, PPSV23 (PNEUMOVAX) Unknown Completed [facility] Influenza Virus Vaccine Quad IM, Preserv and ABX Free 6 MO-64 YRS (FLUCELVAX) Unknown Completed [facility] TDAP Unknown Completed [facility] MMR Unknown Completed [facility] Influenza Virus Vaccine Quad IM 3+ YRS Unknown Completed [facility] Influenza Virus Vaccine Quad .5 mL IM 6+ MO (FLUZONE/FLULAVAL/F LUARIX) Unknown Completed [facility] Pneumococcal Polysaccharide, PPSV23 (PNEUMOVAX) Unknown Completed [facility] TDAP Unknown Completed [facility] Influenza Virus Vaccine Quad .5 mL IM 6+ MO (FLUZONE/FLULAVAL/F LUARIX) Unknown Completed [facility] Influenza Virus Vaccine Unknown Completed [facility] Influenza Virus Vaccine Quad .5 mL IM 6+ MO (FLUZONE/FLULAVAL/F LUARIX) Unknown Completed [facility] Pneumococcal Polysaccharide, PPSV23 (PNEUMOVAX) Unknown Completed [facility] Influenza Virus Vaccine Quad IM, Preserv and ABX Free 6 MO-64 YRS (FLUCELVAX) Unknown Completed [facility] TDAP Unknown Completed [facility] MMR Unknown Completed [facility] Influenza Virus Vaccine Quad IM 3+ YRS Unknown Completed [facility] Influenza Virus Vaccine Quad .5 mL IM 6+ MO (FLUZONE/FLULAVAL/F LUARIX) Unknown Completed [facility] Pneumococcal Polysaccharide, PPSV23 (PNEUMOVAX) Unknown Completed [facility] TDAP Unknown Completed [facility] Influenza Virus Vaccine Quad .5 mL IM 6+ MO (FLUZONE/FLULAVAL/F LUARIX) Unknown Completed [facility] Influenza Virus Vaccine Unknown Completed [facility] Influenza Virus Vaccine Quad .5 mL IM 6+ MO (FLUZONE/FLULAVAL/F LUARIX) Unknown Completed [facility] Pneumococcal Polysaccharide, PPSV23 (PNEUMOVAX) Unknown Completed [facility] Influenza Virus Vaccine Quad IM, Preserv and ABX Free 6 MO-64 YRS (FLUCELVAX) Unknown Completed [facility] TDAP Unknown Completed [facility] MMR Unknown Completed [facility] Influenza Virus Vaccine Quad IM 3+ YRS Unknown Completed [facility] Influenza Virus Vaccine Quad .5 mL IM 6+ MO (FLUZONE/FLULAVAL/F LUARIX) Unknown Completed [facility] Pneumococcal Polysaccharide, PPSV23 (PNEUMOVAX) Unknown Completed [facility] TDAP Unknown Completed [facility] Influenza Virus Vaccine Quad .5 mL IM 6+ MO (FLUZONE/FLULAVAL/F LUARIX) Unknown Completed [facility] Influenza Virus Vaccine Unknown Completed [facility] Influenza Virus Vaccine Quad .5 mL IM 6+ MO (FLUZONE/FLULAVAL/F LUARIX) Unknown Completed [facility] Pneumococcal Polysaccharide, PPSV23 (PNEUMOVAX) Unknown Completed [facility] Influenza Virus Vaccine Quad IM, Preserv and ABX Free 6 MO-64 YRS (FLUCELVAX) Unknown Completed [facility] TDAP Unknown Completed [facility] MMR Unknown Completed [facility] Influenza Virus Vaccine Quad IM 3+ YRS Unknown Completed [facility] Influenza Virus Vaccine Quad .5 mL IM 6+ MO (FLUZONE/FLULAVAL/F LUARIX) Unknown Completed [facility] Pneumococcal Polysaccharide, PPSV23 (PNEUMOVAX) Unknown Completed [facility] TDAP Unknown Completed [facility] Influenza Virus Vaccine Quad .5 mL IM 6+ MO (FLUZONE/FLULAVAL/F LUARIX) Unknown Completed [facility] Influenza Virus Vaccine Unknown Completed [facility] Influenza Virus Vaccine Quad .5 mL IM 6+ MO (FLUZONE/FLULAVAL/F LUARIX) Unknown Completed [facility] Pneumococcal Polysaccharide, PPSV23 (PNEUMOVAX) Unknown Completed [facility] Influenza Virus Vaccine Quad IM, Preserv and ABX Free 6 MO-64 YRS (FLUCELVAX) Unknown Completed [facility] TDAP Unknown Completed [facility] MMR Unknown Completed [facility] Influenza Virus Vaccine Quad IM 3+ YRS Unknown Completed [facility] Influenza Virus Vaccine Quad .5 mL IM 6+ MO (FLUZONE/FLULAVAL/F LUARIX) Unknown Completed [facility] Pneumococcal Polysaccharide, PPSV23 (PNEUMOVAX) Unknown Completed [facility] TDAP Unknown Completed [facility] Influenza Virus Vaccine Quad .5 mL IM 6+ MO (FLUZONE/FLULAVAL/F LUARIX) Unknown Completed [facility] Influenza Virus Vaccine Unknown Completed [facility] Influenza Virus Vaccine Quad .5 mL IM 6+ MO (FLUZONE/FLULAVAL/F LUARIX) Unknown Completed [facility] Pneumococcal Polysaccharide, PPSV23 (PNEUMOVAX) Unknown Completed [facility] Influenza Virus Vaccine Quad IM, Preserv and ABX Free 6 MO-64 YRS (FLUCELVAX) Unknown Completed [facility] TDAP Unknown Completed [facility] MMR Unknown Completed [facility] Influenza Virus Vaccine Quad IM 3+ YRS Unknown Completed [facility] Influenza Virus Vaccine Quad .5 mL IM 6+ MO (FLUZONE/FLULAVAL/F LUARIX) Unknown Completed [facility] Pneumococcal Polysaccharide, PPSV23 (PNEUMOVAX) Unknown Completed [facility] TDAP Unknown Completed [facility] Influenza Virus Vaccine Quad .5 mL IM 6+ MO (FLUZONE/FLULAVAL/F LUARIX) Unknown Completed [facility] Influenza Virus Vaccine Unknown Completed [facility] Influenza Virus Vaccine Quad .5 mL IM 6+ MO (FLUZONE/FLULAVAL/F LUARIX) Unknown Completed [facility] Pneumococcal Polysaccharide, PPSV23 (PNEUMOVAX) Unknown Completed [facility] Influenza Virus Vaccine Quad IM, Preserv and ABX Free 6 MO-64 YRS (FLUCELVAX) Unknown Completed [facility] TDAP Unknown Completed [facility] MMR Unknown Completed [facility] Influenza Virus Vaccine Quad IM 3+ YRS Unknown Completed [facility] Influenza Virus Vaccine Quad .5 mL IM 6+ MO (FLUZONE/FLULAVAL/F LUARIX) Unknown Completed [facility] Pneumococcal Polysaccharide, PPSV23 (PNEUMOVAX) Unknown Completed [facility] TDAP Unknown Completed [facility] Influenza Virus Vaccine Quad .5 mL IM 6+ MO (FLUZONE/FLULAVAL/F LUARIX) Unknown Completed [facility] Influenza Virus Vaccine Unknown Completed [facility] Influenza Virus Vaccine Quad .5 mL IM 6+ MO (FLUZONE/FLULAVAL/F LUARIX) Unknown Completed [facility] Pneumococcal Polysaccharide, PPSV23 (PNEUMOVAX) Unknown Completed [facility] Influenza Virus Vaccine Quad IM, Preserv and ABX Free 6 MO-64 YRS (FLUCELVAX) Unknown Completed [facility] TDAP Unknown Completed [facility] MMR Unknown Completed [facility] Influenza Virus Vaccine Quad IM 3+ YRS Unknown Completed [facility] Influenza Virus Vaccine Quad .5 mL IM 6+ MO (FLUZONE/FLULAVAL/F LUARIX) Unknown Completed [facility] Pneumococcal Polysaccharide, PPSV23 (PNEUMOVAX) Unknown Completed [facility] TDAP Unknown Completed [facility] Influenza Virus Vaccine Quad .5 mL IM 6+ MO (FLUZONE/FLULAVAL/F LUARIX) Unknown Completed [facility] Influenza Virus Vaccine Unknown Completed [facility] Influenza Virus Vaccine Quad .5 mL IM 6+ MO (FLUZONE/FLULAVAL/F LUARIX) Unknown Completed [facility] Pneumococcal Polysaccharide, PPSV23 (PNEUMOVAX) Unknown Completed [facility] Influenza Virus Vaccine Quad IM, Preserv and ABX Free 6 MO-64 YRS (FLUCELVAX) Unknown Completed [facility] TDAP Unknown Completed [facility] MMR Unknown Completed [facility] Influenza Virus Vaccine Quad IM 3+ YRS Unknown Completed [facility] Influenza Virus Vaccine Quad .5 mL IM 6+ MO (FLUZONE/FLULAVAL/F LUARIX) Unknown Completed [facility] Pneumococcal Polysaccharide, PPSV23 (PNEUMOVAX) Unknown Completed [facility] TDAP Unknown Completed [facility] Influenza Virus Vaccine Quad .5 mL IM 6+ MO (FLUZONE/FLULAVAL/F LUARIX) Unknown Completed [facility] Influenza Virus Vaccine Unknown Completed [facility] Influenza Virus Vaccine Quad .5 mL IM 6+ MO (FLUZONE/FLULAVAL/F LUARIX) Unknown Completed [facility] Pneumococcal Polysaccharide, PPSV23 (PNEUMOVAX) Unknown Completed [facility] Influenza Virus Vaccine Quad IM, Preserv and ABX Free 6 MO-64 YRS (FLUCELVAX) Unknown Completed [facility] TDAP Unknown Completed [facility] MMR Unknown Completed [facility] Influenza Virus Vaccine Quad IM 3+ YRS Unknown Completed [facility] Influenza Virus Vaccine Quad .5 mL IM 6+ MO (FLUZONE/FLULAVAL/F LUARIX) Unknown Completed [facility] Pneumococcal Polysaccharide, PPSV23 (PNEUMOVAX) Unknown Completed [facility] TDAP Unknown Completed [facility] Influenza Virus Vaccine Quad .5 mL IM 6+ MO (FLUZONE/FLULAVAL/F LUARIX) Unknown Completed [facility] Influenza Virus Vaccine Unknown Completed [facility] Influenza Virus Vaccine Quad .5 mL IM 6+ MO (FLUZONE/FLULAVAL/F LUARIX) Unknown Completed [facility] Pneumococcal Polysaccharide, PPSV23 (PNEUMOVAX) Unknown Completed [facility] Influenza Virus Vaccine Quad IM, Preserv and ABX Free 6 MO-64 YRS (FLUCELVAX) Unknown Completed [facility] TDAP Unknown Completed [facility] MMR Unknown Completed [facility] Influenza Virus Vaccine Quad IM 3+ YRS Unknown Completed [facility] Influenza Virus Vaccine Quad .5 mL IM 6+ MO (FLUZONE/FLULAVAL/F LUARIX) Unknown Completed [facility] Pneumococcal Polysaccharide, PPSV23 (PNEUMOVAX) Unknown Completed [facility] TDAP Unknown Completed [facility] Influenza Virus Vaccine Quad .5 mL IM 6+ MO (FLUZONE/FLULAVAL/F LUARIX) Unknown Completed [facility] Influenza Virus Vaccine Unknown Completed [facility] Influenza Virus Vaccine Quad .5 mL IM 6+ MO (FLUZONE/FLULAVAL/F LUARIX) Unknown Completed [facility] Pneumococcal Polysaccharide, PPSV23 (PNEUMOVAX) Unknown Completed [facility] Influenza Virus Vaccine Quad IM, Preserv and ABX Free 6 MO-64 YRS (FLUCELVAX) Unknown Completed [facility] TDAP Unknown Completed [facility] MMR Unknown Completed [facility] Influenza Virus Vaccine Quad IM 3+ YRS Unknown Completed [facility] Influenza Virus Vaccine Quad .5 mL IM 6+ MO (FLUZONE/FLULAVAL/F LUARIX) Unknown Completed [facility] Pneumococcal Polysaccharide, PPSV23 (PNEUMOVAX) Unknown Completed [facility] TDAP Unknown Completed [facility] Influenza Virus Vaccine Quad .5 mL IM 6+ MO (FLUZONE/FLULAVAL/F LUARIX) Unknown Completed [facility] Influenza Virus Vaccine Unknown Completed [facility] Influenza Virus Vaccine Quad .5 mL IM 6+ MO (FLUZONE/FLULAVAL/F LUARIX) Unknown Completed [facility] Pneumococcal Polysaccharide, PPSV23 (PNEUMOVAX) Unknown Completed [facility] Influenza Virus Vaccine Quad IM, Preserv and ABX Free 6 MO-64 YRS (FLUCELVAX) Unknown Completed [facility] TDAP Unknown Completed [facility] MMR Unknown Completed [facility] Influenza Virus Vaccine Quad IM 3+ YRS Unknown Completed [facility] Influenza Virus Vaccine Quad .5 mL IM 6+ MO (FLUZONE/FLULAVAL/F LUARIX) Unknown Completed [facility] Pneumococcal Polysaccharide, PPSV23 (PNEUMOVAX) Unknown Completed [facility] TDAP Unknown Completed [facility] Influenza Virus Vaccine Quad .5 mL IM 6+ MO (FLUZONE/FLULAVAL/F LUARIX) Unknown Completed [facility] Influenza Virus Vaccine Unknown Completed [facility] Influenza Virus Vaccine Quad .5 mL IM 6+ MO (FLUZONE/FLULAVAL/F LUARIX) Unknown Completed [facility] Pneumococcal Polysaccharide, PPSV23 (PNEUMOVAX) Unknown Completed [facility] Influenza Virus Vaccine Quad IM, Preserv and ABX Free 6 MO-64 YRS (FLUCELVAX) Unknown Completed [facility] TDAP Unknown Completed [facility] MMR Unknown Completed [facility] Influenza Virus Vaccine Quad IM 3+ YRS Unknown Completed [facility] Influenza Virus Vaccine Quad .5 mL IM 6+ MO (FLUZONE/FLULAVAL/F LUARIX) Unknown Completed [facility] Pneumococcal Polysaccharide, PPSV23 (PNEUMOVAX) Unknown Completed [facility] TDAP Unknown Completed [facility] Influenza Virus Vaccine Quad .5 mL IM 6+ MO (FLUZONE/FLULAVAL/F LUARIX) Unknown Completed [facility] Influenza Virus Vaccine Unknown Completed [facility] Influenza Virus Vaccine Quad .5 mL IM 6+ MO (FLUZONE/FLULAVAL/F LUARIX) Unknown Completed [facility] Pneumococcal Polysaccharide, PPSV23 (PNEUMOVAX) Unknown Completed [facility] Influenza Virus Vaccine Quad IM, Preserv and ABX Free 6 MO-64 YRS (FLUCELVAX) Unknown Completed [facility] TDAP Unknown Completed [facility] MMR Unknown Completed [facility] Influenza Virus Vaccine Quad IM 3+ YRS Unknown Completed [facility] Influenza Virus Vaccine Quad .5 mL IM 6+ MO (FLUZONE/FLULAVAL/F LUARIX) Unknown Completed [facility] Pneumococcal Polysaccharide, PPSV23 (PNEUMOVAX) Unknown Completed [facility] TDAP Unknown Completed [facility] Influenza Virus Vaccine Quad .5 mL IM 6+ MO (FLUZONE/FLULAVAL/F LUARIX) Unknown Completed [facility] Influenza Virus Vaccine Unknown Completed [facility] Influenza Virus Vaccine Quad .5 mL IM 6+ MO (FLUZONE/FLULAVAL/F LUARIX) Unknown Completed [facility] Pneumococcal Polysaccharide, PPSV23 (PNEUMOVAX) Unknown Completed [facility] Influenza Virus Vaccine Quad IM, Preserv and ABX Free 6 MO-64 YRS (FLUCELVAX) Unknown Completed [facility] TDAP Unknown Completed [facility] MMR Unknown Completed [facility] Influenza Virus Vaccine Quad IM 3+ YRS Unknown Completed [facility] Influenza Virus Vaccine Quad .5 mL IM 6+ MO (FLUZONE/FLULAVAL/F LUARIX) Unknown Completed [facility] Pneumococcal Polysaccharide, PPSV23 (PNEUMOVAX) Unknown Completed [facility] TDAP Unknown Completed [facility] Influenza Virus Vaccine Quad .5 mL IM 6+ MO (FLUZONE/FLULAVAL/F LUARIX) Unknown Completed [facility] Influenza Virus Vaccine Unknown Completed [facility] Influenza Virus Vaccine Quad .5 mL IM 6+ MO (FLUZONE/FLULAVAL/F LUARIX) Unknown Completed [facility] Pneumococcal Polysaccharide, PPSV23 (PNEUMOVAX) Unknown Completed [facility] Influenza Virus Vaccine Quad IM, Preserv and ABX Free 6 MO-64 YRS (FLUCELVAX) Unknown Completed [facility] TDAP Unknown Completed [facility] MMR Unknown Completed [facility] Influenza Virus Vaccine Quad IM 3+ YRS Unknown Completed [facility] Influenza Virus Vaccine Quad .5 mL IM 6+ MO (FLUZONE/FLULAVAL/F LUARIX) Unknown Completed [facility] Pneumococcal Polysaccharide, PPSV23 (PNEUMOVAX) Unknown Completed [facility] TDAP Unknown Completed [facility] Influenza Virus Vaccine Quad .5 mL IM 6+ MO (FLUZONE/FLULAVAL/F LUARIX) Unknown Completed [facility] Influenza Virus Vaccine Unknown Completed [facility] Influenza Virus Vaccine Quad .5 mL IM 6+ MO (FLUZONE/FLULAVAL/F LUARIX) Unknown Completed [facility] Pneumococcal Polysaccharide, PPSV23 (PNEUMOVAX) Unknown Completed [facility] Influenza Virus Vaccine Quad IM, Preserv and ABX Free 6 MO-64 YRS (FLUCELVAX) Unknown Completed [facility] TDAP Unknown Completed [facility] MMR Unknown Completed [facility] Influenza Virus Vaccine Quad IM 3+ YRS Unknown Completed [facility] Influenza Virus Vaccine Quad .5 mL IM 6+ MO (FLUZONE/FLULAVAL/F LUARIX) Unknown Completed [facility] Pneumococcal Polysaccharide, PPSV23 (PNEUMOVAX) Unknown Completed [facility] TDAP Unknown Completed [facility] Influenza Virus Vaccine Quad .5 mL IM 6+ MO (FLUZONE/FLULAVAL/F LUARIX) Unknown Completed [facility] Influenza Virus Vaccine Unknown Completed [facility] Influenza Virus Vaccine Quad .5 mL IM 6+ MO (FLUZONE/FLULAVAL/F LUARIX) Unknown Completed [facility] Pneumococcal Polysaccharide, PPSV23 (PNEUMOVAX) Unknown Completed [facility] Influenza Virus Vaccine Quad IM, Preserv and ABX Free 6 MO-64 YRS (FLUCELVAX) Unknown Completed [facility] TDAP Unknown Completed [facility] MMR Unknown Completed [facility] Influenza Virus Vaccine Quad IM 3+ YRS Unknown Completed [facility] Influenza Virus Vaccine Quad .5 mL IM 6+ MO (FLUZONE/FLULAVAL/F LUARIX) Unknown Completed [facility] Pneumococcal Polysaccharide, PPSV23 (PNEUMOVAX) Unknown Completed [facility] TDAP Unknown Completed [facility] Influenza Virus Vaccine Quad .5 mL IM 6+ MO (FLUZONE/FLULAVAL/F LUARIX) Unknown Completed [facility] Influenza Virus Vaccine Unknown Completed [facility] Influenza Virus Vaccine Quad .5 mL IM 6+ MO (FLUZONE/FLULAVAL/F LUARIX) Unknown Completed [facility] Pneumococcal Polysaccharide, PPSV23 (PNEUMOVAX) Unknown Completed [facility] Influenza Virus Vaccine Quad IM, Preserv and ABX Free 6 MO-64 YRS (FLUCELVAX) Unknown Completed [facility] TDAP Unknown Completed [facility] MMR Unknown Completed [facility] Influenza Virus Vaccine Quad IM 3+ YRS Unknown Completed [facility] Influenza Virus Vaccine Quad .5 mL IM 6+ MO (FLUZONE/FLULAVAL/F LUARIX) Unknown Completed [facility] Pneumococcal Polysaccharide, PPSV23 (PNEUMOVAX) Unknown Completed [facility] TDAP Unknown Completed [facility] Influenza Virus Vaccine Quad .5 mL IM 6+ MO (FLUZONE/FLULAVAL/F LUARIX) Unknown Completed [facility] Influenza Virus Vaccine Unknown Completed [facility] Influenza Virus Vaccine Quad .5 mL IM 6+ MO (FLUZONE/FLULAVAL/F LUARIX) Unknown Completed [facility] Pneumococcal Polysaccharide, PPSV23 (PNEUMOVAX) Unknown Completed [facility] Influenza Virus Vaccine Quad IM, Preserv and ABX Free 6 MO-64 YRS (FLUCELVAX) Unknown Completed [facility] TDAP Unknown Completed [facility] MMR Unknown Completed [facility] Influenza Virus Vaccine Quad IM 3+ YRS Unknown Completed [facility] Influenza Virus Vaccine Quad .5 mL IM 6+ MO (FLUZONE/FLULAVAL/F LUARIX) Unknown Completed [facility] Pneumococcal Polysaccharide, PPSV23 (PNEUMOVAX) Unknown Completed [facility] TDAP Unknown Completed [facility] Influenza Virus Vaccine Quad .5 mL IM 6+ MO (FLUZONE/FLULAVAL/F LUARIX) Unknown Completed [facility] Influenza Virus Vaccine Unknown Completed [facility] Influenza Virus Vaccine Quad .5 mL IM 6+ MO (FLUZONE/FLULAVAL/F LUARIX) Unknown Completed [facility] Pneumococcal Polysaccharide, PPSV23 (PNEUMOVAX) Unknown Completed [facility] Influenza Virus Vaccine Quad IM, Preserv and ABX Free 6 MO-64 YRS (FLUCELVAX) Unknown Completed [facility] TDAP Unknown Completed [facility] MMR Unknown Completed [facility] Influenza Virus Vaccine Quad IM 3+ YRS Unknown Completed [facility] Influenza Virus Vaccine Quad .5 mL IM 6+ MO (FLUZONE/FLULAVAL/F LUARIX) Unknown Completed [facility] Pneumococcal Polysaccharide, PPSV23 (PNEUMOVAX) Unknown Completed [facility] TDAP Unknown Completed [facility] Influenza Virus Vaccine Quad .5 mL IM 6+ MO (FLUZONE/FLULAVAL/F LUARIX) Unknown Completed [facility] Influenza Virus Vaccine Unknown Completed [facility] Influenza Virus Vaccine Quad .5 mL IM 6+ MO (FLUZONE/FLULAVAL/F LUARIX) Unknown Completed [facility] Pneumococcal Polysaccharide, PPSV23 (PNEUMOVAX) Unknown Completed [facility] Influenza Virus Vaccine Quad IM, Preserv and ABX Free 6 MO-64 YRS (FLUCELVAX) Unknown Completed [facility] TDAP Unknown Completed [facility] MMR Unknown Completed [facility] Influenza Virus Vaccine Quad IM 3+ YRS Unknown Completed [facility] Influenza Virus Vaccine Quad .5 mL IM 6+ MO (FLUZONE/FLULAVAL/F LUARIX) Unknown Completed [facility] Pneumococcal Polysaccharide, PPSV23 (PNEUMOVAX) Unknown Completed [facility] TDAP Unknown Completed [facility] Influenza Virus Vaccine Quad .5 mL IM 6+ MO (FLUZONE/FLULAVAL/F LUARIX) Unknown Completed [facility] Influenza Virus Vaccine Unknown Completed [facility] Influenza Virus Vaccine Quad .5 mL IM 6+ MO (FLUZONE/FLULAVAL/F LUARIX) Unknown Completed [facility] Pneumococcal Polysaccharide, PPSV23 (PNEUMOVAX) Unknown Completed [facility] Influenza Virus Vaccine Quad IM, Preserv and ABX Free 6 MO-64 YRS (FLUCELVAX) Unknown Completed [facility] TDAP Unknown Completed [facility] MMR Unknown Completed [facility] Influenza Virus Vaccine Quad IM 3+ YRS Unknown Completed [facility] Influenza Virus Vaccine Quad .5 mL IM 6+ MO (FLUZONE/FLULAVAL/F LUARIX) Unknown Completed [facility] Pneumococcal Polysaccharide, PPSV23 (PNEUMOVAX) Unknown Completed [facility] TDAP Unknown Completed [facility] Influenza Virus Vaccine Quad .5 mL IM 6+ MO (FLUZONE/FLULAVAL/F LUARIX) Unknown Completed [facility] Influenza Virus Vaccine Unknown Completed [facility] Influenza Virus Vaccine Quad .5 mL IM 6+ MO (FLUZONE/FLULAVAL/F LUARIX) Unknown Completed [facility] Pneumococcal Polysaccharide, PPSV23 (PNEUMOVAX) Unknown Completed [facility] Influenza Virus Vaccine Quad IM, Preserv and ABX Free 6 MO-64 YRS (FLUCELVAX) Unknown Completed [facility] TDAP Unknown Completed [facility] MMR Unknown Completed [facility] Influenza Virus Vaccine Quad IM 3+ YRS Unknown Completed [facility] Influenza Virus Vaccine Quad .5 mL IM 6+ MO (FLUZONE/FLULAVAL/F LUARIX) Unknown Completed [facility] Pneumococcal Polysaccharide, PPSV23 (PNEUMOVAX) Unknown Completed [facility] TDAP Unknown Completed [facility] Influenza Virus Vaccine Quad .5 mL IM 6+ MO (FLUZONE/FLULAVAL/F LUARIX) Unknown Completed [facility] Influenza Virus Vaccine Unknown Completed [facility] Influenza Virus Vaccine Quad .5 mL IM 6+ MO (FLUZONE/FLULAVAL/F LUARIX) Unknown Completed [facility] Pneumococcal Polysaccharide, PPSV23 (PNEUMOVAX) Unknown Completed [facility] Influenza Virus Vaccine Quad IM, Preserv and ABX Free 6 MO-64 YRS (FLUCELVAX) Unknown Completed [facility] TDAP Unknown Completed [facility] MMR Unknown Completed [facility] Influenza Virus Vaccine Quad IM 3+ YRS Unknown Completed [facility] Influenza Virus Vaccine Quad .5 mL IM 6+ MO (FLUZONE/FLULAVAL/F LUARIX) Unknown Completed [facility] Pneumococcal Polysaccharide, PPSV23 (PNEUMOVAX) Unknown Completed [facility] TDAP Unknown Completed [facility] Influenza Virus Vaccine Quad .5 mL IM 6+ MO (FLUZONE/FLULAVAL/F LUARIX) Unknown Completed [facility] Influenza Virus Vaccine Unknown Completed [facility] Influenza Virus Vaccine Quad .5 mL IM 6+ MO (FLUZONE/FLULAVAL/F LUARIX) Unknown Completed [facility] Pneumococcal Polysaccharide, PPSV23 (PNEUMOVAX) Unknown Completed [facility] Influenza Virus Vaccine Quad IM, Preserv and ABX Free 6 MO-64 YRS (FLUCELVAX) Unknown Completed [facility] TDAP Unknown Completed [facility] MMR Unknown Completed [facility] Influenza Virus Vaccine Quad IM 3+ YRS Unknown Completed [facility] Influenza Virus Vaccine Quad .5 mL IM 6+ MO (FLUZONE/FLULAVAL/F LUARIX) Unknown Completed [facility] Pneumococcal Polysaccharide, PPSV23 (PNEUMOVAX) Unknown Completed [facility] TDAP Unknown Completed [facility] Influenza Virus Vaccine Quad .5 mL IM 6+ MO (FLUZONE/FLULAVAL/F LUARIX) Unknown Completed [facility] Influenza Virus Vaccine Unknown Completed [facility] Influenza Virus Vaccine Quad .5 mL IM 6+ MO (FLUZONE/FLULAVAL/F LUARIX) Unknown Completed [facility] Pneumococcal Polysaccharide, PPSV23 (PNEUMOVAX) Unknown Completed [facility] Influenza Virus Vaccine Quad IM, Preserv and ABX Free 6 MO-64 YRS (FLUCELVAX) Unknown Completed [facility] TDAP Unknown Completed [facility] MMR Unknown Completed [facility] Influenza Virus Vaccine Quad IM 3+ YRS Unknown Completed [facility] Influenza Virus Vaccine Quad .5 mL IM 6+ MO (FLUZONE/FLULAVAL/F LUARIX) Unknown Completed [facility] Pneumococcal Polysaccharide, PPSV23 (PNEUMOVAX) Unknown Completed [facility] TDAP Unknown Completed [facility] Influenza Virus Vaccine Quad .5 mL IM 6+ MO (FLUZONE/FLULAVAL/F LUARIX) Unknown Completed [facility] Influenza Virus Vaccine Unknown Completed [facility] Influenza Virus Vaccine Quad .5 mL IM 6+ MO (FLUZONE/FLULAVAL/F LUARIX) Unknown Completed [facility] Pneumococcal Polysaccharide, PPSV23 (PNEUMOVAX) Unknown Completed [facility] Influenza Virus Vaccine Quad IM, Preserv and ABX Free 6 MO-64 YRS (FLUCELVAX) Unknown Completed [facility] TDAP Unknown Completed [facility] MMR Unknown Completed [facility] Influenza Virus Vaccine Quad IM 3+ YRS Unknown Completed [facility] Influenza Virus Vaccine Quad .5 mL IM 6+ MO (FLUZONE/FLULAVAL/F LUARIX) Unknown Completed [facility] Pneumococcal Polysaccharide, PPSV23 (PNEUMOVAX) Unknown Completed [facility] TDAP Unknown Completed [facility] Influenza Virus Vaccine Quad .5 mL IM 6+ MO (FLUZONE/FLULAVAL/F LUARIX) Unknown Completed [facility] Influenza Virus Vaccine Unknown Completed [facility] Influenza Virus Vaccine Quad .5 mL IM 6+ MO (FLUZONE/FLULAVAL/F LUARIX) Unknown Completed [facility] Pneumococcal Polysaccharide, PPSV23 (PNEUMOVAX) Unknown Completed [facility] Influenza Virus Vaccine Quad IM, Preserv and ABX Free 6 MO-64 YRS (FLUCELVAX) Unknown Completed [facility] TDAP Unknown Completed [facility] MMR Unknown Completed [facility] Influenza Virus Vaccine Quad IM 3+ YRS Unknown Completed [facility] Influenza Virus Vaccine Quad .5 mL IM 6+ MO (FLUZONE/FLULAVAL/F LUARIX) Unknown Completed [facility] Pneumococcal Polysaccharide, PPSV23 (PNEUMOVAX) Unknown Completed [facility] TDAP Unknown Completed [facility] Influenza Virus Vaccine Quad .5 mL IM 6+ MO (FLUZONE/FLULAVAL/F LUARIX) Unknown Completed [facility] Influenza Virus Vaccine Unknown Completed [facility] Influenza Virus Vaccine Quad .5 mL IM 6+ MO (FLUZONE/FLULAVAL/F LUARIX) Unknown Completed [facility] Pneumococcal Polysaccharide, PPSV23 (PNEUMOVAX) Unknown Completed [facility] Influenza Virus Vaccine Quad IM, Preserv and ABX Free 6 MO-64 YRS (FLUCELVAX) Unknown Completed [facility] TDAP Unknown Completed [facility] MMR Unknown Completed [facility] Influenza Virus Vaccine Quad IM 3+ YRS Unknown Completed [facility] Influenza Virus Vaccine Quad .5 mL IM 6+ MO (FLUZONE/FLULAVAL/F LUARIX) Unknown Completed [facility] Pneumococcal Polysaccharide, PPSV23 (PNEUMOVAX) Unknown Completed [facility] TDAP Unknown Completed [facility] Influenza Virus Vaccine Quad .5 mL IM 6+ MO (FLUZONE/FLULAVAL/F LUARIX) Unknown Completed [facility] Influenza Virus Vaccine Unknown Completed [facility] Influenza Virus Vaccine Quad .5 mL IM 6+ MO (FLUZONE/FLULAVAL/F LUARIX) Unknown Completed [facility] Pneumococcal Polysaccharide, PPSV23 (PNEUMOVAX) Unknown Completed [facility] Influenza Virus Vaccine Quad IM, Preserv and ABX Free 6 MO-64 YRS (FLUCELVAX) Unknown Completed [facility] TDAP Unknown Completed [facility] MMR Unknown Completed [facility] Influenza Virus Vaccine Quad IM 3+ YRS Unknown Completed [facility] Influenza Virus Vaccine Quad .5 mL IM 6+ MO (FLUZONE/FLULAVAL/F LUARIX) Unknown Completed [facility] Pneumococcal Polysaccharide, PPSV23 (PNEUMOVAX) Unknown Completed [facility] TDAP Unknown Completed [facility] Influenza Virus Vaccine Quad .5 mL IM 6+ MO (FLUZONE/FLULAVAL/F LUARIX) Unknown Completed [facility] Influenza Virus Vaccine Unknown Completed [facility] Influenza Virus Vaccine Quad .5 mL IM 6+ MO (FLUZONE/FLULAVAL/F LUARIX) Unknown Completed [facility] Pneumococcal Polysaccharide, PPSV23 (PNEUMOVAX) Unknown Completed [facility] Influenza Virus Vaccine Quad IM, Preserv and ABX Free 6 MO-64 YRS (FLUCELVAX) Unknown Completed [facility] TDAP Unknown Completed [facility] MMR Unknown Completed [facility] Influenza Virus Vaccine Quad IM 3+ YRS Unknown Completed [facility] Influenza Virus Vaccine Quad .5 mL IM 6+ MO (FLUZONE/FLULAVAL/F LUARIX) Unknown Completed [facility] Pneumococcal Polysaccharide, PPSV23 (PNEUMOVAX) Unknown Completed [facility] TDAP Unknown Completed [facility] Influenza Virus Vaccine Quad .5 mL IM 6+ MO (FLUZONE/FLULAVAL/F LUARIX) Unknown Completed [facility] Influenza Virus Vaccine Unknown Completed [facility] Influenza Virus Vaccine Quad .5 mL IM 6+ MO (FLUZONE/FLULAVAL/F LUARIX) Unknown Completed [facility] Pneumococcal Polysaccharide, PPSV23 (PNEUMOVAX) Unknown Completed [facility] Influenza Virus Vaccine Quad IM, Preserv and ABX Free 6 MO-64 YRS (FLUCELVAX) Unknown Completed [facility] TDAP Unknown Completed [facility] MMR Unknown Completed [facility] Influenza Virus Vaccine Quad IM 3+ YRS Unknown Completed [facility] Influenza Virus Vaccine Quad .5 mL IM 6+ MO (FLUZONE/FLULAVAL/F LUARIX) Unknown Completed [facility] Pneumococcal Polysaccharide, PPSV23 (PNEUMOVAX) Unknown Completed [facility] TDAP Unknown Completed [facility] Influenza Virus Vaccine Quad .5 mL IM 6+ MO (FLUZONE/FLULAVAL/F LUARIX) Unknown Completed [facility] Influenza Virus Vaccine Unknown Completed [facility] Influenza Virus Vaccine Quad .5 mL IM 6+ MO (FLUZONE/FLULAVAL/F LUARIX) Unknown Completed [facility] Pneumococcal Polysaccharide, PPSV23 (PNEUMOVAX) Unknown Completed [facility] Influenza Virus Vaccine Quad IM, Preserv and ABX Free 6 MO-64 YRS (FLUCELVAX) Unknown Completed [facility] TDAP Unknown Completed [facility] MMR Unknown Completed [facility] Influenza Virus Vaccine Quad IM 3+ YRS Unknown Completed [facility] Influenza Virus Vaccine Quad .5 mL IM 6+ MO (FLUZONE/FLULAVAL/F LUARIX) Unknown Completed [facility] Pneumococcal Polysaccharide, PPSV23 (PNEUMOVAX) Unknown Completed [facility] TDAP Unknown Completed [facility] Influenza Virus Vaccine Quad .5 mL IM 6+ MO (FLUZONE/FLULAVAL/F LUARIX) Unknown Completed [facility] Influenza Virus Vaccine Unknown Completed [facility] Influenza Virus Vaccine Quad .5 mL IM 6+ MO (FLUZONE/FLULAVAL/F LUARIX) Unknown Completed [facility] Pneumococcal Polysaccharide, PPSV23 (PNEUMOVAX) Unknown Completed [facility] Influenza Virus Vaccine Quad IM, Preserv and ABX Free 6 MO-64 YRS (FLUCELVAX) Unknown Completed [facility] Vital Signs Vital Name Observation Time Observation Value Comments S ource Systolic blood pressure 2023-10-15 20:35:00 114 mm[Hg] [facility] Diastolic blood pressure 2023-10-15 20:35:00 81 mm[Hg] [facility] Heart rate 2023-10-15 20:35:00 77 /min [facility] Body height 2023-10-15 20:35:00 162.6 cm [facility] Body weight 2023-10-15 20:35:00 89.313 kg [facility] BMI 2023-10-15 20:35:00 33.80 kg/m2 [facility] Oxygen saturation in Arterial blood by Pulse oximetry 2023-10-15 20:35:00 97 /min [facility] Systolic blood pressure 2023-09-12 21:15:00 120 mm[Hg] [facility] Diastolic blood pressure 2023-09-12 21:15:00 75 mm[Hg] [facility] Heart rate 2023-09-12 21:15:00 89 /min [facility] Respiratory rate 2023-09-12 21:15:00 16 /min [facility] Oxygen saturation in Arterial blood by Pulse oximetry 2023-09-12 21:15:00 97 /min [facility] Body temperature 2023-09-12 20:24:39 36.94 [place] [facility] Body height 2023-09-12 20:02:00 162.6 cm [facility] Body weight 2023-09-12 20:02:00 95.255 kg [facility] BMI 2023-09-12 20:02:00 36.05 kg/m2 [facility] Systolic blood pressure 2023-09-10 21:59:00 111 mm[Hg] [facility] Diastolic blood pressure 2023-09-10 21:59:00 71 mm[Hg] [facility] Heart rate 2023-09-10 21:59:00 82 /min [facility] Body height 2023-09-10 21:59:00 162.6 cm [facility] Body weight 2023-09-10 21:59:00 95.255 kg [facility] BMI 2023-09-10 21:59:00 36.05 kg/m2 [facility] Systolic blood pressure 2023-06-25 19:40:00 114 mm[Hg] [facility] Diastolic blood pressure 2023-06-25 19:40:00 78 mm[Hg] [facility] Heart rate 2023-06-25 19:40:00 82 /min [facility] Respiratory rate 2023-06-25 19:40:00 12 /min [facility] Body height 2023-06-25 19:40:00 162.6 cm [facility] Body weight 2023-06-25 19:40:00 95.255 kg [facility] BMI 2023-06-25 19:40:00 36.05 kg/m2 [facility] Oxygen saturation in Arterial blood by Pulse oximetry 2023-06-25 19:40:00 97 /min [facility] Systolic blood pressure 2023-06-11 18:36:00 130 mm[Hg] [facility] Diastolic blood pressure 2023-06-11 18:36:00 86 mm[Hg] [facility] Heart rate 2023-06-11 18:36:00 77 /min [facility] Body height 2023-06-11 18:36:00 162.6 cm [facility] Body weight 2023-06-11 18:36:00 92.352 kg [facility] BMI 2023-06-11 18:36:00 34.95 kg/m2 [facility] Oxygen saturation in Arterial blood by Pulse oximetry 2023-06-11 18:36:00 97 /min [facility] Systolic blood pressure 2023-06-06 18:24:00 125 mm[Hg] [facility] Diastolic blood pressure 2023-06-06 18:24:00 86 mm[Hg] [facility] Heart rate 2023-06-06 18:24:00 79 /min [facility] Respiratory rate 2023-06-06 18:24:00 18 /min [facility] Body height 2023-06-06 18:24:00 162.6 cm [facility] Body weight 2023-06-06 18:24:00 91.173 kg [facility] BMI 2023-06-06 18:24:00 34.50 kg/m2 [facility] Systolic blood pressure 2023-05-11 19:10:00 101 mm[Hg] [facility] Diastolic blood pressure 2023-05-11 19:10:00 57 mm[Hg] [facility] Heart rate 2023-05-11 19:10:00 84 /min [facility] Respiratory rate 2023-05-11 19:10:00 16 /min [facility] Oxygen saturation in Arterial blood by Pulse oximetry 2023-05-11 19:10:00 100 /min [facility] Body height 2023-05-11 18:07:00 162.6 cm [facility] Body weight 2023-05-11 18:07:00 90.719 kg [facility] BMI 2023-05-11 18:07:00 34.33 kg/m2 [facility] Systolic blood pressure 2023-05-02 18:07:00 121 mm[Hg] [facility] Diastolic blood pressure 2023-05-02 18:07:00 84 mm[Hg] [facility] Heart rate 2023-05-02 18:07:00 93 /min [facility] Body temperature 2023-05-02 18:07:00 37.11 [place] [facility] Respiratory rate 2023-05-02 18:07:00 16 /min [facility] Body height 2023-05-02 18:07:00 162.6 cm [facility] Body weight 2023-05-02 18:07:00 92.579 kg [facility] BMI 2023-05-02 18:07:00 35.03 kg/m2 [facility] Oxygen saturation in Arterial blood by Pulse oximetry 2023-05-02 18:07:00 97 /min [facility] Systolic blood pressure 2023-04-09 14:50:00 113 mm[Hg] [facility] Diastolic blood pressure 2023-04-09 14:50:00 88 mm[Hg] [facility] Heart rate 2023-04-09 14:50:00 77 /min [facility] Respiratory rate 2023-04-09 14:50:00 11 /min [facility] Oxygen saturation in Arterial blood by Pulse oximetry 2023-04-09 14:50:00 98 /min [facility] Body temperature 2023-04-09 14:24:00 36.17 [place] [facility] Body height 2023-04-09 12:41:00 162.6 cm [facility] Body weight 2023-04-09 12:41:00 91.627 kg [facility] BMI 2023-04-09 12:41:00 34.67 kg/m2 [facility] Systolic blood pressure 2023-04-09 12:41:00 136 mm[Hg] [facility] Diastolic blood pressure 2023-04-09 12:41:00 93 mm[Hg] [facility] Heart rate 2023-04-09 12:41:00 79 /min [facility] Body temperature 2023-04-09 12:41:00 36.17 [place] [facility] Respiratory rate 2023-04-09 12:41:00 16 /min [facility] Body height 2023-04-09 12:41:00 162.6 cm [facility] Body weight 2023-04-09 12:41:00 91.627 kg [facility] BMI 2023-04-09 12:41:00 34.67 kg/m2 [facility] Oxygen saturation in Arterial blood by Pulse oximetry 2023-04-09 12:41:00 99 /min [facility] Systolic blood pressure 2023-03-29 19:30:00 115 mm[Hg] [facility] Diastolic blood pressure 2023-03-29 19:30:00 78 mm[Hg] [facility] Heart rate 2023-03-29 19:30:00 85 /min [facility] Body temperature 2023-03-29 19:26:00 36.61 [place] [facility] Respiratory rate 2023-03-29 19:26:00 18 /min [facility] Body height 2023-03-29 19:26:00 162.6 cm [facility] Body weight 2023-03-29 19:26:00 93.577 kg [facility] BMI 2023-03-29 19:26:00 35.41 kg/m2 [facility] Oxygen saturation in Arterial blood by Pulse oximetry 2023-03-29 19:26:00 99 /min [facility] Systolic blood pressure 2023-03-13 19:14:00 118 mm[Hg] [facility] Diastolic blood pressure 2023-03-13 19:14:00 81 mm[Hg] [facility] Heart rate 2023-03-13 19:14:00 74 /min [facility] Body height 2023-03-13 19:14:00 162.6 cm [facility] Body weight 2023-03-13 19:14:00 93.441 kg [facility] BMI 2023-03-13 19:14:00 35.36 kg/m2 [facility] Oxygen saturation in Arterial blood by Pulse oximetry 2023-03-13 19:14:00 99 /min [facility] Systolic blood pressure 2023-03-06 20:09:00 119 mm[Hg] [facility] Diastolic blood pressure 2023-03-06 20:09:00 85 mm[Hg] [facility] Heart rate 2023-03-06 20:09:00 79 /min [facility] Respiratory rate 2023-03-06 20:09:00 16 /min [facility] Body height 2023-03-06 20:09:00 162.6 cm [facility] Body weight 2023-03-06 20:09:00 93.804 kg [facility] BMI 2023-03-06 20:09:00 35.50 kg/m2 [facility] Oxygen saturation in Arterial blood by Pulse oximetry 2023-03-06 20:09:00 98 /min [facility] Systolic blood pressure 2023-02-19 19:12:00 121 mm[Hg] [facility] Diastolic blood pressure 2023-02-19 19:12:00 84 mm[Hg] [facility] Heart rate 2023-02-19 19:12:00 83 /min [facility] Body height 2023-02-19 19:12:00 162.6 cm [facility] Body weight 2023-02-19 19:12:00 93.35 kg [facility] BMI 2023-02-19 19:12:00 35.33 kg/m2 [facility] Systolic blood pressure 2023-01-30 19:51:00 118 mm[Hg] [facility] Diastolic blood pressure 2023-01-30 19:51:00 80 mm[Hg] [facility] Heart rate 2023-01-30 19:51:00 89 /min [facility] Respiratory rate 2023-01-30 19:51:00 18 /min [facility] Body height 2023-01-30 19:51:00 162.6 cm [facility] Body weight 2023-01-30 19:51:00 93.577 kg [facility] BMI 2023-01-30 19:51:00 35.41 kg/m2 [facility] Oxygen saturation in Arterial blood by Pulse oximetry 2023-01-30 19:51:00 97 /min [facility] Systolic blood pressure 2023-01-19 19:30:00 109 mm[Hg] [facility] Diastolic blood pressure 2023-01-19 19:30:00 77 mm[Hg] [facility] Heart rate 2023-01-19 19:30:00 92 /min [facility] Body temperature 2023-01-19 19:30:00 36.56 [place] [facility] Respiratory rate 2023-01-19 19:30:00 18 /min [facility] Body height 2023-01-19 19:30:00 162.6 cm [facility] Body weight 2023-01-19 19:30:00 93.668 kg [facility] BMI 2023-01-19 19:30:00 35.45 kg/m2 [facility] Oxygen saturation in Arterial blood by Pulse oximetry 2023-01-19 19:30:00 98 /min [facility] Systolic blood pressure 2023-01-09 14:59:00 112 mm[Hg] [facility] Diastolic blood pressure 2023-01-09 14:59:00 80 mm[Hg] [facility] Heart rate 2023-01-09 14:59:00 78 /min [facility] Respiratory rate 2023-01-09 14:59:00 16 /min [facility] Body height 2023-01-09 14:59:00 162.6 cm [facility] Body weight 2023-01-09 14:59:00 94.348 kg [facility] BMI 2023-01-09 14:59:00 35.70 kg/m2 [facility] Oxygen saturation in Arterial blood by Pulse oximetry 2023-01-09 14:59:00 98 /min [facility] Systolic blood pressure 2023-01-01 18:36:00 131 mm[Hg] Patient just had a [employer] drink [facility] Diastolic blood pressure 2023-01-01 18:36:00 92 mm[Hg] Patient just had a [employer] drink [facility] Heart rate 2023-01-01 18:36:00 86 /min [facility] Body temperature 2023-01-01 18:36:00 36.44 [place] [facility] Body height 2023-01-01 18:36:00 162.6 cm [facility] Body weight 2023-01-01 18:36:00 94.348 kg [facility] BMI 2023-01-01 18:36:00 35.70 kg/m2 [facility] Oxygen saturation in Arterial blood by Pulse oximetry 2023-01-01 18:36:00 96 /min [facility] Systolic blood pressure 2023-01-01 15:13:00 112 mm[Hg] [facility] Diastolic blood pressure 2023-01-01 15:13:00 80 mm[Hg] [facility] Heart rate 2023-01-01 15:13:00 76 /min [facility] Respiratory rate 2023-01-01 15:13:00 18 /min [facility] Body height 2023-01-01 15:13:00 162.6 cm [facility] Body weight 2023-01-01 15:13:00 94.348 kg [facility] BMI 2023-01-01 15:13:00 35.70 kg/m2 [facility] Systolic blood pressure 2022-12-11 16:20:00 100 mm[Hg] [facility] Diastolic blood pressure 2022-12-11 16:20:00 79 mm[Hg] [facility] Heart rate 2022-12-11 16:20:00 79 /min [facility] Respiratory rate 2022-12-11 16:20:00 16 /min [facility] Body temperature 2022-12-11 14:44:00 36.67 [place] [facility] Body height 2022-12-11 14:44:00 162.6 cm [facility] Body weight 2022-12-11 14:44:00 93.441 kg [facility] BMI 2022-12-11 14:44:00 35.36 kg/m2 [facility] Oxygen saturation in Arterial blood by Pulse oximetry 2022-12-11 14:44:00 100 /min [facility] Systolic blood pressure 2022-11-29 16:18:00 115 mm[Hg] [facility] Diastolic blood pressure 2022-11-29 16:18:00 80 mm[Hg] [facility] Heart rate 2022-11-29 16:18:00 77 /min [facility] Body temperature 2022-11-29 16:18:00 36.67 [place] [facility] Respiratory rate 2022-11-29 16:18:00 18 /min [facility] Body height 2022-11-29 16:18:00 162.6 cm [facility] Body weight 2022-11-29 16:18:00 95.119 kg [facility] BMI 2022-11-29 16:18:00 35.99 kg/m2 [facility] Oxygen saturation in Arterial blood by Pulse oximetry 2022-11-29 16:18:00 98 /min [facility] Systolic blood pressure 2022-10-25 19:08:00 134 mm[Hg] [facility] Diastolic blood pressure 2022-10-25 19:08:00 84 mm[Hg] [facility] Heart rate 2022-10-25 19:08:00 79 /min [facility] Body temperature 2022-10-25 19:08:00 36.33 [place] [facility] Respiratory rate 2022-10-25 19:08:00 16 /min [facility] Body height 2022-10-25 19:08:00 162.6 cm [facility] Body weight 2022-10-25 19:08:00 99.02 kg [facility] BMI 2022-10-25 19:08:00 37.47 kg/m2 [facility] Oxygen saturation in Arterial blood by Pulse oximetry 2022-10-25 19:08:00 99 /min [facility] Systolic blood pressure 2022-10-24 14:40:00 116 mm[Hg] [facility] Diastolic blood pressure 2022-10-24 14:40:00 82 mm[Hg] [facility] Heart rate 2022-10-24 14:40:00 73 /min [facility] Body height 2022-10-24 14:40:00 162.6 cm [facility] Body weight 2022-10-24 14:40:00 99.791 kg [facility] BMI 2022-10-24 14:40:00 37.76 kg/m2 [facility] Oxygen saturation in Arterial blood by Pulse oximetry 2022-10-24 14:40:00 98 /min [facility] Systolic blood pressure 2022-10-18 20:33:00 126 mm[Hg] [facility] Diastolic blood pressure 2022-10-18 20:33:00 85 mm[Hg] [facility] Heart rate 2022-10-18 20:33:00 83 /min [facility] Body height 2022-10-18 20:33:00 162.6 cm [facility] Body weight 2022-10-18 20:33:00 98.385 kg [facility] BMI 2022-10-18 20:33:00 37.23 kg/m2 [facility] Oxygen saturation in Arterial blood by Pulse oximetry 2022-10-18 20:33:00 99 /min [facility] Systolic blood pressure 2022-09-21 17:31:00 125 mm[Hg] [facility] Diastolic blood pressure 2022-09-21 17:31:00 81 mm[Hg] [facility] Heart rate 2022-09-21 17:31:00 77 /min [facility] Body temperature 2022-09-21 17:31:00 37.17 [place] [facility] Body height 2022-09-21 17:31:00 162.6 cm [facility] Body weight 2022-09-21 17:31:00 98.431 kg [facility] BMI 2022-09-21 17:31:00 37.25 kg/m2 [facility] Oxygen saturation in Arterial blood by Pulse oximetry 2022-09-21 17:31:00 97 /min [facility] Systolic blood pressure 2022-09-15 17:50:00 96 mm[Hg] [facility] Diastolic blood pressure 2022-09-15 17:50:00 67 mm[Hg] [facility] Heart rate 2022-09-15 17:50:00 81 /min [facility] Respiratory rate 2022-09-15 17:50:00 18 /min [facility] Body temperature 2022-09-15 16:40:00 37 [place] [facility] Body height 2022-09-15 16:40:00 162.6 cm [facility] Body weight 2022-09-15 16:40:00 102.513 kg [facility] BMI 2022-09-15 16:40:00 38.79 kg/m2 [facility] Oxygen saturation in Arterial blood by Pulse oximetry 2022-09-15 16:40:00 100 /min [facility] Systolic blood pressure 2022-09-13 15:34:00 114 mm[Hg] [facility] Diastolic blood pressure 2022-09-13 15:34:00 79 mm[Hg] [facility] Heart rate 2022-09-13 15:34:00 78 /min [facility] Body weight 2022-09-13 15:34:00 102.83 kg [facility] BMI 2022-09-13 15:34:00 38.91 kg/m2 [facility] Oxygen saturation in Arterial blood by Pulse oximetry 2022-09-13 15:34:00 98 /min [facility] Systolic blood pressure 2022-09-12 15:38:00 123 mm[Hg] [facility] Diastolic blood pressure 2022-09-12 15:38:00 71 mm[Hg] [facility] Heart rate 2022-09-12 15:38:00 70 /min [facility] Body temperature 2022-09-12 15:38:00 36.94 [place] [facility] Respiratory rate 2022-09-12 15:38:00 16 /min [facility] Body height 2022-09-12 15:38:00 162.6 cm [facility] Body weight 2022-09-12 15:38:00 102.059 kg [facility] BMI 2022-09-12 15:38:00 38.62 kg/m2 [facility] Oxygen saturation in Arterial blood by Pulse oximetry 2022-09-12 15:38:00 98 /min [facility] Systolic blood pressure 2022-08-21 15:34:00 123 mm[Hg] [facility] Diastolic blood pressure 2022-08-21 15:34:00 85 mm[Hg] [facility] Heart rate 2022-08-21 15:34:00 70 /min [facility] Body height 2022-08-21 15:34:00 162.6 cm [facility] Body weight 2022-08-21 15:34:00 100.699 kg [facility] BMI 2022-08-21 15:34:00 38.11 kg/m2 [facility] Systolic blood pressure 2022-08-16 19:15:00 135 mm[Hg] [facility] Diastolic blood pressure 2022-08-16 19:15:00 96 mm[Hg] [facility] Heart rate 2022-08-16 19:15:00 74 /min [facility] Respiratory rate 2022-08-16 19:15:00 20 /min [facility] Body height 2022-08-16 19:15:00 162.6 cm [facility] Body weight 2022-08-16 19:15:00 99.791 kg [facility] BMI 2022-08-16 19:15:00 37.76 kg/m2 [facility] Oxygen saturation in Arterial blood by Pulse oximetry 2022-08-16 19:15:00 98 /min [facility] Systolic blood pressure 2022-08-15 17:30:00 114 mm[Hg] [facility] Diastolic blood pressure 2022-08-15 17:30:00 79 mm[Hg] [facility] Heart rate 2022-08-15 17:30:00 81 /min [facility] Body temperature 2022-08-15 17:30:00 37 [place] [facility] Respiratory rate 2022-08-15 17:30:00 18 /min [facility] Body height 2022-08-15 17:30:00 162.6 cm [facility] Body weight 2022-08-15 17:30:00 99.791 kg [facility] BMI 2022-08-15 17:30:00 37.76 kg/m2 [facility] Systolic blood pressure 2022-08-02 19:33:00 132 mm[Hg] [facility] Diastolic blood pressure 2022-08-02 19:33:00 90 mm[Hg] [facility] Heart rate 2022-08-02 19:33:00 73 /min [facility] Body temperature 2022-08-02 19:33:00 36.61 [place] [facility] Respiratory rate 2022-08-02 19:33:00 18 /min [facility] Body height 2022-08-02 19:33:00 162.6 cm [facility] Body weight 2022-08-02 19:33:00 97.977 kg [facility] BMI 2022-08-02 19:33:00 37.08 kg/m2 [facility] Systolic blood pressure 2022-07-24 15:18:00 130 mm[Hg] [facility] Diastolic blood pressure 2022-07-24 15:18:00 86 mm[Hg] [facility] Heart rate 2022-07-24 15:18:00 73 /min [facility] Body height 2022-07-24 15:18:00 162.6 cm [facility] Body weight 2022-07-24 15:18:00 100.245 kg [facility] BMI 2022-07-24 15:18:00 37.93 kg/m2 [facility] Oxygen saturation in Arterial blood by Pulse oximetry 2022-07-24 15:18:00 98 /min [facility] Systolic blood pressure 2022-07-18 16:04:00 128 mm[Hg] [facility] Diastolic blood pressure 2022-07-18 16:04:00 86 mm[Hg] [facility] Heart rate 2022-07-18 16:04:00 83 /min [facility] Body height 2022-07-18 16:04:00 162.6 cm [facility] Body weight 2022-07-18 16:04:00 97.523 kg [facility] BMI 2022-07-18 16:04:00 36.90 kg/m2 [facility] Oxygen saturation in Arterial blood by Pulse oximetry 2022-07-18 16:04:00 100 /min [facility] Systolic blood pressure 2022-07-17 17:07:00 122 mm[Hg] [facility] Diastolic blood pressure 2022-07-17 17:07:00 90 mm[Hg] [facility] Heart rate 2022-07-17 17:07:00 74 /min [facility] Body temperature 2022-07-17 17:07:00 36.72 [place] [facility] Respiratory rate 2022-07-17 17:07:00 16 /min [facility] Body height 2022-07-17 17:07:00 162.6 cm [facility] Body weight 2022-07-17 17:07:00 97.569 kg [facility] BMI 2022-07-17 17:07:00 36.92 kg/m2 [facility] Oxygen saturation in Arterial blood by Pulse oximetry 2022-07-17 17:07:00 98 /min [facility] Systolic blood pressure 2022-06-30 21:20:00 101 mm[Hg] [facility] Diastolic blood pressure 2022-06-30 21:20:00 70 mm[Hg] [facility] Heart rate 2022-06-30 21:20:00 76 /min [facility] Respiratory rate 2022-06-30 21:10:00 18 /min [facility] Body temperature 2022-06-30 20:27:00 36.67 [place] [facility] Body height 2022-06-30 20:27:00 162.6 cm [facility] Body weight 2022-06-30 20:27:00 90.719 kg [facility] BMI 2022-06-30 20:27:00 34.33 kg/m2 [facility] Oxygen saturation in Arterial blood by Pulse oximetry 2022-06-30 20:27:00 95 /min [facility] Systolic blood pressure 2022-06-20 16:23:00 117 mm[Hg] [facility] Diastolic blood pressure 2022-06-20 16:23:00 77 mm[Hg] [facility] Heart rate 2022-06-20 16:23:00 87 /min [facility] Body temperature 2022-06-20 16:23:00 37 [place] [facility] Respiratory rate 2022-06-20 16:23:00 18 /min [facility] Body height 2022-06-20 16:23:00 162.6 cm [facility] Body weight 2022-06-20 16:23:00 95.709 kg [facility] BMI 2022-06-20 16:23:00 36.22 kg/m2 [facility] Body weight 2022-06-09 15:45:00 91.173 kg [facility] BMI 2022-06-09 15:45:00 34.50 kg/m2 [facility] Systolic blood pressure 2022-05-16 15:31:00 133 mm[Hg] [facility] Diastolic blood pressure 2022-05-16 15:31:00 87 mm[Hg] [facility] Heart rate 2022-05-16 15:31:00 87 /min [facility] Respiratory rate 2022-05-16 15:31:00 12 /min [facility] Body height 2022-05-16 15:31:00 162.6 cm [facility] Body weight 2022-05-16 15:31:00 91.173 kg [facility] BMI 2022-05-16 15:31:00 34.50 kg/m2 [facility] Oxygen saturation in Arterial blood by Pulse oximetry 2022-05-16 15:31:00 99 /min [facility] Procedures Procedure Date / Time Performed Performing Clinician Source POCT HEMOGLOBIN A1C TEST 2023-10-15 20:36:00 Marie Garzon [facility] FL TIME OR (NON-REPORTABLE) 2023-09-12 21:03:57 Curtis Morley [facility] POCT GLUCOSE (AUTOMATED) 2023-09-12 20:21:00 Curtis Morley [facility] POCT TEST 2023-09-12 20:03:00 Curtis Morley [facility] CONSENT/REFUSAL FOR DIAGNOSI S AND TREATMENT 2023-09-12 19:54:45 Doctor Unassigned, [place] [facility] ANTIPHOSPHOLIPID ANTIBODY EVALUATION-SST 2023-09-10 22:21:00 Carmen Figueroa [facility] ANTIPHOSPHOLIPID ANTIBODY TE STS AND EVALUATION 2023-09-10 22:21:00 Carmen Figueroa [facility] ANTIPHOSPHOLIPID ANTIBODY EVALUATION-LT BLUE 2023-09-10 22:21:00 Carmen Figueroa [facility] CONSENT FOR CONTRACEPTION 2023-09-10 06:01:00 Doctor Unassigned, [place] [facility] FLU VACC (), 6 MO-6 4 YRS, .5ML, IM, QUAD (FLUCELVAX) 2023-06-06 18:56:21 Taylor Verdin [facility] PNEUMOCOCCAL VACCINE, 23-RUTHIE ENT (PNEUMOVAX) 2023-06-06 18:56:20 Taylor Verdin [facility] FL TIME OR (NON-REPORTABLE) 2023-05-11 19:01:23 Curtis Morley [facility] POCT GLUCOSE (AUTOMATED) 2023-05-11 18:11:00 Curtis Morley [facility] RPR (DX) W/REFL TITER AND$CONFIRMATORY TESTING-Q 2023-05-02 18:53:00 Ez Palacio [facility] POCT TEST 2023-05-02 00:00:00 Ez Palacio [facility] SURGICAL PATHOLOGY EXAM 2023-04-09 14:05:00 Norbert Diaz [facility] ESOPHAGOGASTRODUODENOSCOPY 2023-04-09 13:44:00 Norbert Diaz [facility] EGD (ENDO) 2023-04-09 13:39:47 Taylor Verdin [facility] EGD (ENDO) 2023-04-09 13:39:47 Taylor Verdin [facility] POCT GLUCOSE (AUTOMATED) 2023-04-09 13:03:00 Norbert Diaz [facility] POCT GLUCOSE (AUTOMATED) 2023-04-09 13:03:00 Norbert Diaz [facility] ASSIGNMENT OF BENEFITS 2023-04-09 12:30:17 Doctor Unassigned, [place] [facility] POCT TEST 2023-04-09 00:00:00 Tacos Roman [facility] POCT TEST 2023-04-09 00:00:00 Tacos Roman [facility] DME/SUPPLY JUSTIFICATION 2023-03-19 05:01:00 Doctor Unassigned, [place] [facility] PATIENT QUESTIONNAIRE 2023-02-18 05:01:00 Doctor Unassigned, [place] [facility] DME/SUPPLY JUSTIFICATION 2023-01-30 05:01:00 Doctor Unassigned, [place] [facility] COMP. METABOLIC PANEL (86068) 2023-01-09 15:40:00 Harjinder James [facility] SEDIMENTATION RATE 2023-01-09 15:40:00 Harjnider James [facility] CBC WITH DIFF 2023-01-09 15:40:00 Harjinder James Cindy [facility] VITAMIN D, 25-OH 2023-01-09 15:40:00 Harjinder James [facility] ANTICARDIOLIPIN ANTIBODIES 2023-01-01 15:54:00 Ez Palacio [facility] ANTI-B2 GLYCOPROTEIN I AB 2023-01-01 15:54:00 Ez Palacio [facility] DISCLOSURE AND CONSENT, MEDI MAYTE AND SURGICAL PROCEDURES 2023-01-01 05:01:00 Doctor Unassigned, [place] [facility] FL TIME OR (NON-REPORTABLE) 2022-12-11 15:57:25 Curtis Morley [facility] POCT GLUCOSE (AUTOMATED) 2022-12-11 15:06:00 Curtis Morley [facility] POCT TEST 2022-12-11 14:45:00 Curtis Morley [facility] POCT SARS-COV-2 ANTIGEN (BIN AX NOW) 2022-11-29 17:25:00 Taylor Verdin [facility] POCT MOLECULAR STREP 2022-11-29 17:07:00 Taylor Verdin [facility] EMG/NCV 2022-10-26 05:01:00 Skyler Ferrari [facility] AUTHORIZATION TO RELEASE PHI TO [facility] 2022-10-18 06:01:00 Doctor Unassigned, [place] [facility] FL TIME OR (NON-REPORTABLE) 2022-09-15 17:38:14 [facility] ([facility]OM[facility]) 2022-09-15 16:38:00 Curtis Morley [facility] POCT TEST 2022-09-15 16:30:00 Curtis Morley [facility] CONSENT/REFUSAL FOR DIAGNOSI S AND TREATMENT 2022-09-12 15:19:35 Doctor Unassigned, [place] [facility] MISCELLANEOUS SEND OUT TEST 2022-08-21 16:05:00 Hakeem [facility] DIAGNOSTIC MANAGEMENT TEAM; SPECIAL COAGULATION EVALUATION 2022-08-21 16:05:00 Hakeem [facility] ANTIPHOSPHOLIPID ANTIBODY TE STS AND EVALUATION 2022-08-21 16:05:00 Hakeem [facility] ANTIPHOSPHOLIPID ANTIBODY EVALUATION-LT BLUE 2022-08-21 16:05:00 Hakeem [facility] ANTICARDIOLIPIN ANTIBODIES 2022-08-21 16:05:00 Hakeem [facility] ANTI-B2 GLYCOPROTEIN I AB 2022-08-21 16:05:00 Hakeem [facility] ANTIPHOSPHOLIPID ANTIBODY EVALUATION-SST 2022-08-21 16:05:00 Hakeem [facility] MR LUMBAR SPINE WO CONTRAST 2022-08-16 20:31:57 Skyler Ferrari [facility] US PELVIS COMPLETE WITH TRANSVAGINAL 2022-07-26 15:39:56 Hakeem [facility] POCT TEST 2022-07-17 00:00:00 Hakeem [facility] FL TIME OR (NON-REPORTABLE) 2022-06-30 21:00:00 [facility] 2022-06-30 20:15:00 Curtis Morley [facility] POCT TEST 2022-06-20 00:00:00 Adum, [place] Vidal [facility] DISCLOSURE AND CONSENT, MEDI MAYTE AND SURGICAL PROCEDURES 2022-06-16 05:01:00 Doctor Unassigned, [place] [facility] Encounters Start Date/Time End Date/Time Encounter Type Admission Type Attending Clinicians Care Facility Care Department Encounter ID Source 2021-11-08 15:18:20 Outpatient R AZALIA MICHEL [facility] CASSANDRA [id number] [facility] 2021-06-13 16:13:46 Emergency [facility] [id number] [facility] 2021-06-12 19:13:39 Outpatient MARILU AZALIA [facility] [id number] [facility] 2021-06-12 02:02:49 Outpatient CURTIS MORLEY [facility] [id number] [facility] 2021-06-10 22:07:19 Outpatient NORBERT MARSH GABRIEL [facility] GIE [id number] [facility] 2023-12-19 13:45:00 2023-12-19 13:45:00 Outpatient R ABIEL DUQUE [facility] [id number] [facility] 2023-12-12 15:40:00 2023-12-12 15:40:00 Outpatient R TAYLOR VERDIN [facility] [id number] [facility] 2023-12-01 00:00:00 2023-12-01 00:00:00 Refill Taylor Verdin [facility] 1.2.840.114 350.1.13.10 4.2.7.2.686 [id number] [facility] 2023-11-07 00:00:00 2023-11-07 00:00:00 Telephone Richa Dominguez [facility] 1.2.840.114 350.1.13.10 4.2.7.2.686 [id number] [facility] 2023-11-05 00:00:00 2023-11-05 00:00:00 Refill Taylor Verdin [facility] 1.84.114 350.1.13.10 4.2.7.2.686 [id number] [facility] 2023-10-19 00:00:00 2023-10-19 00:00:00 Patient Secure Msg Marie Garzon [facility] 1.0.114 350.1.13.10 4.2.7.2.686 [id number] [facility] 2023-10-16 00:00:00 2023-10-16 00:00:00 Patient Secure Msg Marie Garzon [facility] 1.84.114 350.1.13.10 4.2.7.2.686 [id number] [facility] 2023-10-15 15:30:00 2023-10-15 15:45:00 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[facility] 1.84.114 350.1.13.10 4.2.7.2.686 [id number] [facility] 2023-10-15 15:30:00 2023-10-15 15:30:00 Outpatient R MARIE GARZON [facility] [id number] [facility] 2023-10-15 14:30:00 2023-10-15 15:18:52 Office Visit Marie Garzon Yu [facility] 1.284.114 350.1.13.10 4.2.7.2.686 [id number] [facility] 2023-10-13 00:00:00 2023-10-13 00:00:00 Refill Taylor Verdin [facility] 1.114 350.1.13.10 4.2.7.2.686 [id number] [facility] 2023-10-08 13:00:00 2023-10-08 13:00:00 Outpatient R BETH PHAM [facility] [id number] [facility] 2023-09-25 00:00:00 2023-09-25 00:00:00 Telephone [facility] [place] [facility] 1.114 350.1.13.10 4.2.7.2.686 [id number] [facility] 2023-09-25 00:00:00 2023-09-25 00:00:00 Telephone [employer] [place] [facility] BUILDING 1.114 350.1.13.10 4.2.7.2.686 [id number] [facility] 2023-09-20 00:00:00 2023-09-20 00:00:00 Refill Beth Pham [facility] WITH [facility] 1.114 350.1.13.10 4.2.7.2.686 [id number] [facility] 2023-09-20 00:00:00 2023-09-20 00:00:00 Refill Taylor Verdin [facility] 1.114 350.1.13.10 4.2.7.2.686 [id number] [facility] 2023-09-14 00:00:00 2023-09-14 00:00:00 Patient Secure Msg Doctor Unassigned, [place] [facility] BUILDING 1.2.840.114 350.1.13.10 4.2.7.2.686 [id number] [facility] 2023-09-13 00:00:00 2023-09-13 00:00:00 [facility] 1.0.114 350.1.13.10 4.2.7.2.686 [id number] [facility] 2023-09-12 14:13:36 2023-09-12 23:59:00 Outpatient R PEYMAN [facility] [id number] [facility] 2023-09-12 14:13:36 2023-09-12 23:59:00 Hospital Encounter [facility] [place] [facility] 1.840.114 350.1.13.10 4.2.7.2.686 [id number] [facility] 2023-09-12 14:30:00 2023-09-12 15:00:00 Office Visit PeymanCurtis [facility] 1.0.114 350.1.13.10 4.2.7.2.686 [id number] [facility] 2023-09-12 00:00:00 2023-09-12 00:00:00 Orders Only Doctor Unassigned, [place] [facility] 1.2840.114 350.1.13.10 4.2.7.2.686 [id number] [facility] 2023-09-10 16:15:00 2023-09-10 16:30:00 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 1.114 350.1.13.10 4.2.7.2.686 [id number] [facility] 2023-09-10 00:00:00 2023-09-10 00:00:00 Telephone Curtis Morley [facility] 1.114 350.1.13.10 4.2.7.2.686 [id number] [facility] 2023-09-10 00:00:00 2023-09-10 00:00:00 Orders Only Doctor Unassigned, [place] [facility] 1..114 350.1.13.10 4.2.7.2.686 [id number] [facility] 2023-08-24 00:00:00 2023-08-24 00:00:00 [facility] 1.114 350.1.13.10 4.2.7.2.686 [id number] [facility] 2023-08-08 00:00:00 2023-08-08 00:00:00 Refill Taylor Verdin [facility] 1.114 350.1.13.10 4.2.7.2.686 [id number] [facility] 2023-07-20 14:30:00 2023-07-20 14:30:00 Outpatient R KERR-HYACINTH S, CARMEN CIRILO-HYACINTH S, CARMEN [facility] [id number] [facility] 2023-07-20 14:30:00 2023-07-20 14:30:00 Outpatient R LISA S, CARMEN KERR-HYACINTH S, CARMEN [facility] [id number] [facility] 2023-07-20 00:00:00 2023-07-20 00:00:00 Refill Richa Dominguez [facility] 1.84.114 350.1.13.10 4.2.7.2.686 [id number] [facility] 2023-07-16 13:30:00 2023-07-16 13:30:00 Outpatient R RICHA DOMINGUEZ [facility] [id number] [facility] 2023-06-28 00:00:00 2023-06-28 00:00:00 Refill Taylor Verdin [facility] BU[facility] 1.84.114 350.1.13.10 4.2.7.2.686 [id number] [facility] 2023-06-25 13:30:00 2023-06-25 15:07:28 Outpatient R BETH PHAM [facility] [id number] [facility] 2023-06-25 13:30:00 2023-06-25 15:07:28 Office Visit Beth Pham MERGED WITH [facility] 1.114 350.1.13.10 4.2.7.2.686 [id number] [facility] 2023-06-25 00:00:00 2023-06-25 00:00:00 Refill Taylor Verdin [facility] 1.84114 350.1.13.10 4.2.7.2.686 [id number] [facility] 2023-06-15 00:00:00 2023-06-15 00:00:00 Refill Beth Pham [facility] 1.0.114 350.1.13.10 4.2.7.2.686 [id number] [facility] 2023-06-14 00:00:00 2023-06-14 00:00:00 RefRicha Ahmadi [facility] 1.114 350.1.13.10 4.2.7.2.686 [id number] [facility] 2023-06-13 00:00:00 2023-06-13 00:00:00 Patient Secure Richa Okeefe [facility] BUILD[facility] 1..114 350.1.13.10 4.2.7.2.686 [id number] [facility] 2023-06-11 13:30:00 2023-06-11 14:13:46 Outpatient R RICHA DOMINGUEZ YU [facility] [id number] [facility] 2023-06-11 13:30:00 2023-06-11 14:13:46 Office Visit Keyla Richa [facility] BUILDING 1.2.114 350.1.13.10 4.2.7.2.686 [id number] [facility] 2023-06-06 14:15:00 2023-06-06 14:30:00 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, Taylor De Jesus [facility] BU[facility] 1..114 350.1.13.10 4.2.7.2.686 [id number] [facility] 2023-06-06 13:40:00 2023-06-06 14:09:23 Outpatient R TAYLOR VERDIN [facility] [id number] [facility] 2023-06-06 13:40:00 2023-06-06 14:09:23 Office Visit Taylor Verdin Tameka [facility] BUILDING 1.84.114 350.1.13.10 4.2.7.2.686 [id number] [facility] 2023-05-31 00:00:00 2023-05-31 00:00:00 Refill Taylor Verdin Tameka [facility] BUILD[facility] 1..114 350.1.13.10 4.2.7.2.686 [id number] [facility] 2023-05-22 00:00:00 2023-05-22 00:00:00 Patient Secure Msg Doctor Unassigned, [place] [facility] 1.114 350.1.13.10 4.2.7.2.686 [id number] [facility] 2023-05-15 00:00:00 2023-05-15 00:00:00 Telephone Curtis Morley [facility] 1.114 350.1.13.10 4.2.7.2.686 [id number] [facility] 2023-05-15 00:00:00 2023-05-15 00:00:00 Telephone Curtis Morley [facility] 1.114 350.1.13.10 4.2.7.2.686 [id number] [facility] 2023-05-11 13:16:47 2023-05-11 23:59:00 Outpatient R CURTIS MORLEY [facility] [id number] [facility] 2023-05-11 13:16:47 2023-05-11 23:59:00 Hospital En[facility] [place] [facility] 1.2.840.114 350.1.13.10 4.2.7.2.686 [id number] [facility] 2023-05-11 13:30:00 2023-05-11 14:00:00 Office Visit [facility] [place] [facility] 1.2.840.114 350.1.13.10 4.2.7.2.686 [id number] [facility] 2023-05-09 00:00:00 2023-05-09 00:00:00 Telephone Curtis Morley [facility] 1.2.840.114 350.1.13.10 4.2.7.2.686 [id number] [facility] 2023-05-09 00:00:00 2023-05-09 00:00:00 Patient Secure Msg Doctor Unassigned, [place] [facility] 1.2.840.114 350.1.13.10 4.2.7.2.686 [id number] [facility] 2023-05-08 00:00:00 2023-05-08 00:00:00 Telephone Ez Palacio [facility] 1.840.114 350.1.13.10 4.2.7.2.686 [id number] [facility] 2023-05-07 13:30:00 2023-05-07 13:30:00 Outpatient ELDER ORTIZ [facility] [id number] [facility] 2023-05-05 00:00:00 2023-05-05 00:00:00 Mo Vegaine M [facility] 1.2840.114 350.1.13.10 4.2.7.2.686 [id number] [facility] 2023-05-02 13:00:00 2023-05-02 13:28:05 [facility] [id number] [facility] 2023-05-02 13:00:00 2023-05-02 13:28:05 Office Visit Ez Palacio [facility] 1.2840.114 350.1.13.10 4.2.7.2.686 [id number] [facility] 2023-05-02 00:00:00 2023-05-02 00:00:[address] [facility] 1.2840.114 350.1.13.10 4.2.7.2.686 [id number] [facility] 2023-05-01 00:00:00 2023-05-01 00:00:00 Refill Richa Dominguez [facility] 1.2840.114 350.1.13.10 4.2.7.2.686 [id number] [facility] 2023-04-09 07:30:00 2023-04-09 10:06:00 Outpatient R NORBERT DIAZ GABRIEL [facility] [id number] [facility] 2023-04-09 07:30:00 2023-04-09 10:06:00 Hospital Encounter Norbert Diaz [facility] 1.2.840.114 350.1.13.10 4.2.7.2.686 [id number] [facility] 2023-04-09 08:54:00 2023-04-09 09:16:00 Anesthesia Event Yvonne Mehta Carlos [facility] 1.84.114 350.1.13.10 4.2.7.2.686 [id number] [facility] 2023-04-09 08:00:00 2023-04-09 08:30:00 Surgery Norbert Diaz [facility] 1..114 350.1.13.10 4.2.7.2.686 [id number] [facility] 2023-04-09 00:00:00 2023-04-09 00:00:00 Orders Only Doctor Unassigned, [place] [facility] 1..114 350.1.13.10 4.2.7.2.686 [id number] [facility] 2023-04-07 00:00:00 2023-04-07 00:00:00 Taylor Vega [facility] 1..114 350.1.13.10 4.2.7.2.686 [id number] [facility] 2023-04-05 14:00:00 2023-04-05 15:28:11 Outpatient R EAMON CARRASCO RYAJA [facility] [id number] [facility] 2023-04-05 14:00:00 2023-04-05 15:28:11 Office Visit Eamon Carrasco [facility] 1.114 350.1.13.10 4.2.7.2.686 [id number] 011 [id number] [facility] 2023-04-05 00:00:00 2023-04-05 00:00:00 Telephone Beth Pham [facility] 1.114 350.1.13.10 4.2.7.2.686 [id number] [id number] [facility] 2023-04-02 00:00:00 2023-04-02 00:00:00 [facility] 1..114 350.1.13.10 4.2.7.2.686 [id number] 044 [id number] [facility] 2023-03-30 00:00:00 2023-03-30 00:00:00 [facility] 1.114 350.1.13.10 4.2.7.2.686 [id number] 085 [id number] [facility] 2023-03-29 14:30:00 2023-03-29 15:00:00 Office [facility] 1..114 350.1.13.10 4.2.7.2.686 [id number] 085 [id number] [facility] 2023-03-29 14:30:00 2023-03-29 14:30:00 Outpatient NAINA CABALLERO [facility] [id number] [facility] 2023-03-21 12:30:00 2023-03-21 12:30:00 Outpatient HOLLY HERNANDEZ [facility] [id number] [facility] 2023-03-19 00:00:00 2023-03-19 00:00:00 Telephone Beth Pham [facility] 1.114 350.1.13.10 4.2.7.2.686 [id number] [id number] [facility] 2023-03-19 00:00:00 2023-03-19 00:00:00 Orders Only Doctor Unassigned, [place] [facility] 1.2.840.114 350.1.13.10 4.2.7.2.686 [id number] [id number] [facility] 2023-03-14 00:00:00 2023-03-14 00:00:00 Telephone Beth Pham [facility] 1.840.114 350.1.13.10 4.2.7.2.686 [id number] [id number] [facility] 2023-03-13 14:30:00 2023-03-13 15:27:42 Outpatient R VERO BETH [facility] [id number] [facility] 2023-03-13 14:30:00 2023-03-13 15:27:42 [facility] [place] [facility] 1.0.114 350.1.13.10 4.2.7.2.686 [id number] [id number] [facility] 2023-03-12 10:00:00 2023-03-12 10:00:00 Outpatient R NAINA SEGOVIA [facility] [id number] [facility] 2023-03-11 00:00:00 2023-03-11 00:00:00 Radha Stafford [facility] 1.840.114 350.1.13.10 4.2.7.2.686 [id number] [facility] 2023-03-06 15:20:00 2023-03-06 16:11:30 Outpatient R TAYLOR VERDIN [facility] [id number] [facility] 2023-03-06 15:20:00 2023-03-06 16:11:30 Office Visit [facility] 1.0.114 350.1.13.10 4.2.7.2.686 [id number] 044 [id number] [facility] 2023-03-06 00:00:00 2023-03-06 00:00:00 Refill Raul Wilkinson [facility] 1.84.114 350.1.13.10 4.2.7.2.686 [id number] 044 [id number] [facility] 2023-02-25 00:00:00 2023-02-25 00:00:00 Refill Radha Trinidad [facility] 1..114 350.1.13.10 4.2.7.2.686 [id number] [facility] 2023-02-19 14:15:00 2023-02-19 14:26:26 Outpatient R DUNCAN RAMOS [facility] [id number] [facility] 2023-02-19 14:15:00 2023-02-19 14:26:26 Office Visit Duncan Ramos [facility] 1.84.114 350.1.13.10 4.2.7.2.686 [id number] [facility] 2023-02-18 00:00:00 2023-02-18 00:00:00 Orders Only Doctor Unassigned, [place] [facility] 1.84.114 350.1.13.10 4.2.7.2.686 [id number] [id number] [facility] 2023-02-12 09:30:00 2023-02-12 09:30:00 Outpatient R RICHA DOMINGUEZ YU [facility] [id number] [facility] 2023-02-02 00:00:00 2023-02-02 00:00:00 RefRadha Caldwell [facility] 1.84.114 350.1.13.10 4.2.7.2.686 [id number] [facility] 2023-01-30 15:00:00 2023-01-30 15:28:38 [facility] [id number] [facility] 2023-01-30 15:00:00 2023-01-30 15:28:38 Office Visit Paulo [facility]orrossica [facility] 1.114 350.1.13.10 4.2.7.2.686 [id number] 092 [id number] [facility] 2023-01-30 00:00:00 2023-01-30 00:00:00 [facility]Curtis Barber [facility] [place] [facility] 1.114 350.1.13.10 4.2.7.2.686 [id number] 011 [id number] [facility] 2023-01-30 00:00:00 2023-01-30 00:00:00 Orders Only Doctor Unassigned, [place] [facility] 1.114 350.1.13.10 4.2.7.2.686 [id number] 009 [id number] [facility] 2023-01-29 00:00:00 2023-01-29 00:00:00 RefRadha Caldwell [facility] 1..114 350.1.13.10 4.2.7.2.686 [id number] [facility] 2023-01-28 00:00:00 2023-01-28 00:00:00 Telephone Richa Dominguez [facility] 1.114 350.1.13.10 4.2.7.2.686 [id number] [facility] 2023-01-26 00:00:00 2023-01-26 00:00:00 Telephone [facility] [place] [facility] 1.2.840.114 350.1.13.10 4.2.7.2.686 [id number] 085 [id number] [facility] 2023-01-25 00:00:00 2023-01-25 00:00:00 Refill Richa Dominguez [facility] 1.2840.114 350.1.13.10 4.2.7.2.686 [id number] [facility] 2023-01-25 00:00:00 2023-01-25 00:00:00 Patient Secure Naina Becker [facility] 1.0.114 350.1.13.10 4.2.7.2.686 [id number] 085 [id number] [facility] 2023-01-24 00:00:00 2023-01-24 00:00:00 Refill Radha Trinidad [facility] 1.840.114 350.1.13.10 4.2.7.2.686 [id number] [facility] 2023-01-24 00:00:00 2023-01-24 00:00:00 Telephone Keyla, Fox [facility] OFF[facility]ILD[facility] 1.840.114 350.1.13.10 4.2.7.2.686 [id number] [facility] 2023-01-24 00:00:00 2023-01-24 00:00:00 Refill Taylor Verdin [facility] OFF[facility] BUILD[facility] 1.840.114 350.1.13.10 4.2.7.2.686 [id number] 044 [id number] [facility] 2023-01-24 00:00:00 2023-01-24 00:00:00 Refill Sabrina Bee [facility] 1.2840.114 350.1.13.10 4.2.7.2.686 [id number] 044 [id number] [facility] 2023-01-19 14:40:00 2023-01-19 15:02:51 Outpatient R TAYLOR VERDIN [facility] [id number] [facility] 2023-01-19 14:40:00 2023-01-19 15:02:51 Office Visit Taylor Verdin [facility] 1.840.114 350.1.13.10 4.2.7.2.686 [id number] 044 [id number] [facility] 2023-01-16 00:00:00 2023-01-16 00:00:00 Telephone [facility] 1..114 350.1.13.10 4.2.7.2.686 [id number] 085 [id number] [facility] 2023-01-10 00:00:00 2023-01-10 00:00:[address] 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 Harjinder [facility] 1..114 350.1.13.10 4.2.7.2.686 [id number] [facility] 2023-01-09 09:40:00 2023-01-09 10:34:43 Outpatient HARJINDER ALVAREZ [facility] [id number] [facility] 2023-01-09 09:40:00 2023-01-09 10:34:43 Office Visit Harjinder James Cindy [facility] MULTISPEC [facility] 1.2.840.114 350.1.13.10 4.2.7.2.686 [id number] 086 [id number] [facility] 2023-01-05 00:00:00 2023-01-05 00:00:00 Telephone Naina Segovia [facility]PEC [facility] 1.2.840.114 350.1.13.10 4.2.7.2.686 [id number] 085 [id number] [facility] 2023-01-04 00:00:00 2023-01-04 00:00:[address] [facility] 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 1.2.840.114 350.1.13.10 4.2.7.2.686 [id number] [facility] 2023-01-01 00:00:00 2023-01-01 00:00:00 Orders Only Doctor Unassigned, [place] [facility] 1.84.114 350.1.13.10 4.2.7.2.686 [id number] [facility] 2022-12-26 11:30:00 2022-12-26 11:30:00 Outpatient R EZ PALACIO CHERYAL [facility] [id number] [facility] 2022-12-26 00:00:00 2022-12-26 00:00:00 Telephone Radha Trinidad [facility] 1.840.114 350.1.13.10 4.2.7.2.686 [id number] [facility] 2022-12-11 10:04:30 2022-12-11 23:59:00 Outpatient R CURTIS MORLEY [facility] [id number] [facility] 2022-12-11 10:04:30 2022-12-11 23:59:00 Hospital Encounter Curtis Morley [facility] M[facility]ISPEC [facility] 1.840.114 350.1.13.10 4.2.7.2.686 [id number] [facility] 2022-12-11 10:30:00 2022-12-11 11:45:55 Office Visit Curtis Morley [facility] MULTISPEC [facility] 1.84.114 350.1.13.10 4.2.7.2.686 [id number] [id number] [facility] 2022-12-11 10:00:00 2022-12-11 10:00:00 Outpatient R RICHA DOMINGUEZ YU [facility] [id number] [facility] 2022-12-11 00:00:00 2022-12-11 00:00:00 Solis Trinidad Radha [facility] FAMILY MEDICINE [facility] 1.2.840.114 350.1.13.10 4.2.7.2.686 [id number] [facility] 2022-12-07 00:00:00 2022-12-07 00:00:00 Telephone PeymanCurtsi MERGED WITH [facility] 1.2.840.114 350.1.13.10 4.2.7.2.686 [id number] 011 [id number] [facility] 2022-12-07 00:00:00 2022-12-07 00:00:00 Patient Secure Msg Doctor Unassigned, [place] [facility] 1.2.840.114 350.1.13.10 4.2.7.2.686 [id number] 092 [id number] [facility] 2022-12-06 00:00:00 2022-12-06 00:00:00 Telephone Abbey Skyler [facility] PR[facility]AV[facility] 1.2.840.114 350.1.13.10 4.2.7.2.686 [id number] 092 [id number] [facility] 2022-12-06 00:00:00 2022-12-06 00:00:00 Patient Secure Msg Skyler Ferrari [facility]ARE [facility]AV[facility]ION 1.2.840.114 350.1.13.10 4.2.7.2.686 [id number] 092 [id number] [facility] 2022-12-05 00:00:00 2022-12-05 00:00:00 Telephone TrinidadRadha vidal [facility] 1.2.840.114 350.1.13.10 4.2.7.2.686 [id number] [facility] 2022-12-05 00:00:00 2022-12-05 00:00:00 Taylor Vega [facility] 1.84.114 350.1.13.10 4.2.7.2.686 [id number] 044 [id number] [facility] 2022-12-05 00:00:00 2022-12-05 00:00:00 Telephone Skyler Ferrari [facility] MEDICAL OFFICE BUILDING 1.114 350.1.13.10 4.2.7.2.686 [id number] 092 [id number] [facility] 2022-12-05 00:00:00 2022-12-05 00:00:00 Telephone Skyler Ferrari [facility] OFFICE BUILDING 1.84114 350.1.13.10 4.2.7.2.686 [id number] [id number] [facility] 2022-11-30 15:00:00 2022-11-30 15:00:00 Outpatient R TAYLOR VERDIN [facility] [id number] [facility] 2022-11-29 11:30:00 2022-11-29 12:34:48 Outpatient R TAYLOR VERDIN [facility] [id number] [facility] 2022-11-29 11:30:00 2022-11-29 12:34:48 Office Visit Taylor Verdin [facility] MEDICAL OFFICE BUILDING 1.84114 350.1.13.10 4.2.7.2.686 [id number] 044 [id number] [facility] 2022-11-29 00:00:00 2022-11-29 00:00:00 Telephone Naina Segovia [facility] 1.114 350.1.13.10 4.2.7.2.686 [id number] 085 [id number] [facility] 2022-11-28 00:00:00 2022-11-28 00:00:00 Case Management [facility] 1.2840.114 350.1.13.10 4.2.7.2.686 [id number] 085 [id number] [facility] 2022-11-28 00:00:00 2022-11-28 00:00:00 Patient Secure Msg [facility] 1.2840.114 350.1.13.10 4.2.7.2.686 [id number] [id number] [facility] 2022-11-04 00:00:00 2022-11-04 00:00:00 Refill Holly Fregoso [facility] MEDICAL OFFICE BUILDING 1.840.114 350.1.13.10 4.2.7.2.686 [id number] 044 [id number] [facility] 2022-11-02 00:00:00 2022-11-02 00:00:00 Refill Radha Trinidad [facility] 1.840.114 350.1.13.10 4.2.7.2.686 [id number] [facility] 2022-10-26 13:25:59 2022-10-26 23:59:00 Outpatient R MEGHAN MARKHAM [facility] [id number] [facility] 2022-10-26 13:25:59 2022-10-26 23:59:00 Hospital Encounter Meghan Markham [facility] MEDICAL OFFICE BUILD[facility] 1.0.114 350.1.13.10 4.2.7.2.686 [id number] 038 [id number] [facility] 2022-10-26 00:00:00 2022-10-26 00:00:00 Refill Holly Fregoso [facility] MEDICAL OFFICE BUILDING 1.2840.114 350.1.13.10 4.2.7.2.686 [id number] 044 [id number] [facility] 2022-10-26 00:00:00 2022-10-26 00:00:00 Refill Radha Trinidad [facility] 1.2.840.114 350.1.13.10 4.2.7.2.686 [id number] [id number] [facility] 2022-10-26 00:00:00 2022-10-26 00:00:00 Refill Radha Trinidad [facility] 1.2.840.114 350.1.13.10 4.2.7.2.686 [id number] [facility] 2022-10-26 00:00:00 2022-10-26 00:00:00 Refill Keyla Fox [facility] MEDICAL OFFICE BUILDING 1.2840.114 350.1.13.10 4.2.7.2.686 [id number] [facility] 2022-10-26 00:00:00 2022-10-26 00:00:00 Refill Radha Trinidad [facility] 1.2.840.114 350.1.13.10 4.2.7.2.686 [id number] [facility] 2022-10-26 00:00:00 2022-10-26 00:00:00 Refill Ke[facility] MEDICAL OFFICE BUILDING 1.2840.114 350.1.13.10 4.2.7.2.686 [id number] [facility] 2022-10-26 00:00:00 2022-10-26 00:00:00 Holly Araujo [facility] MEDICAL OFFICE BUILDING 1.2840.114 350.1.13.10 4.2.7.2.686 [id number] 044 [id number] [facility] 2022-10-26 00:00:00 2022-10-26 00:00:00 Curtis Iniguez [facility] 1.114 350.1.13.10 4.2.7.2.686 [id number] 011 [id number] [facility] 2022-10-25 14:00:00 2022-10-25 14:40:59 Outpatient R NAINA SEGOVIA [facility] [id number] [facility] 2022-10-25 14:00:00 2022-10-25 14:40:59 Office Visit Naina Segovia [facility] 1.114 350.1.13.10 4.2.7.2.686 [id number] 085 [id number] [facility] 2022-10-25 00:00:00 2022-10-25 00:00:00 Telephone Holly Fregoso [facility] MEDICAL OFFICE BUILDING 1. 350.1.13.10 4.2.7.2.686 [id number] 044 [id number] [facility] 2022-10-24 09:20:00 2022-10-24 10:35:48 Outpatient R SKYLER FERRARI HOWARD [facility] [id number] [facility] 2022-10-24 09:20:00 2022-10-24 10:35:48 Office Visit Skyler Ferrari [facility] MEDICAL OFFICE BUILDING 1.114 350.1.13.10 4.2.7.2.686 [id number] 092 [id number] [facility] 2022-10-24 00:00:00 2022-10-24 00:00:00 Patient Secure Msg Doctor Unassigned, [place] [facility] 1.114 350.1.13.10 4.2.7.2.686 [id number] 019 [id number] [facility] 2022-10-22 00:00:00 2022-10-22 00:00:00 Telephone Holly Fregoso [facility] 1.84.114 350.1.13.10 4.2.7.2.686 [id number] 044 [id number] [facility] 2022-10-20 00:00:00 2022-10-20 00:00:00 Telephone Holly Fregoso [facility] 1.114 350.1.13.10 4.2.7.2.686 [id number] 044 [id number] [facility] 2022-10-18 15:00:00 2022-10-18 15:35:29 Outpatient R HOLLY FREGOSO [facility] [id number] [facility] 2022-10-18 15:00:00 2022-10-18 15:35:29 Office Visit Holly Fregoso [facility] 1.114 350.1.13.10 4.2.7.2.686 [id number] 044 [id number] [facility] 2022-10-18 00:00:00 2022-10-18 00:00:00 Orders Only Doctor Unassigned, [place] [facility] 1.114 350.1.13.10 4.2.7.2.686 [id number] [facility] 2022-10-17 09:00:00 2022-10-17 09:15:00 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 [facility] Kalli Jefferson [facility] 1..114 350.1.13.10 4.2.7.2.686 [id number] [facility] 2022-10-17 09:00:00 2022-10-17 09:00:00 Outpatient R JUAN, KALLI JEFFERSON, KALLI [facility] [id number] [facility] 2022-10-03 00:00:00 2022-10-03 00:00:00 Telephone Holly Fregoso [facility] 1..114 350.1.13.10 4.2.7.2.686 [id number] [facility] 2022-10-03 00:00:00 2022-10-03 00:00:00 Telephone Meghan Markham [facility] MEDICAL OFFICE BUILDING 1..114 350.1.13.10 4.2.7.2.686 [id number] [facility] 2022-10-02 00:00:00 2022-10-02 00:00:00 Refill Holly Fregoso [facility] 1.0.114 350.1.13.10 4.2.7.2.686 [id number] [facility] 2022-10-01 00:00:00 2022-10-01 00:00:00 Refill Doctor Unassigned, [place] [facility] 1.0.114 350.1.13.10 4.2.7.2.686 [id number] [facility] 2022-10-01 00:00:00 2022-10-01 00:00:00 Refill Doctor Unassigned, [place] [facility] 1.840.114 350.1.13.10 4.2.7.2.686 [id number] [facility] 2022-10-01 00:00:00 2022-10-01 00:00:00 Refill Radha Trinidad [facility] 1.840.114 350.1.13.10 4.2.7.2.686 [id number] [facility] 2022-09-21 11:00:00 2022-09-21 11:57:44 Outpatient R HOLLY FREGOSO [facility] [id number] [facility] 2022-09-21 11:00:00 2022-09-21 11:57:44 Office Visit Holly Fregoso [facility] MEDICAL OFFICE BUILDING 1..114 350.1.13.10 4.2.7.2.686 [id number] [facility] 2022-09-21 08:00:00 2022-09-21 08:30:00 Office Visit Taylor Verdin [facility] MEDICAL OFFICE BUILDING 1.114 350.1.13.10 4.2.7.2.686 [id number] [facility] 2022-09-21 08:00:00 2022-09-21 08:00:00 Outpatient R TAYLOR VERDIN [facility] [id number] [facility] 2022-09-19 00:00:00 2022-09-19 00:00:00 Nurse Triage Lana Scott [facility] 1.114 350.1.13.10 4.2.7.2.686 [id number] [facility] 2022-09-19 00:00:00 2022-09-19 00:00:00 Telephone Curtis Morley [facility] 1.114 350.1.13.10 4.2.7.2.686 [id number] [facility] 2022-09-18 10:00:00 2022-09-18 10:30:00 Telemedici ne Visit Beth Pham [facility] 1..114 350.1.13.10 4.2.7.2.686 [id number] [facility] 2022-09-18 10:00:00 2022-09-18 10:00:00 Outpatient R VERO BETH [facility] [id number] [facility] 2022-09-18 00:00:00 2022-09-18 00:00:00 Telephone Curtis Morley [facility] 1..114 350.1.13.10 4.2.7.2.686 [id number] [facility] 2022-09-15 10:53:55 2022-09-15 23:59:00 [facility] [place] [facility] 1.114 350.1.13.10 4.2.7.2.686 [id number] [facility] 2022-09-15 10:53:55 2022-09-15 23:59:00 Outpatient R CURTIS MORLEY [facility] [id number] [facility] 2022-09-15 10:30:00 2022-09-15 11:00:00 [facility] [place] [facility] 1.114 350.1.13.10 4.2.7.2.686 [id number] [facility] 2022-09-13 09:30:00 2022-09-13 10:35:03 Outpatient R RICHA DOMINGUEZ YU [facility] [id number] [facility] 2022-09-13 09:30:00 2022-09-13 10:35:03 [facility] PARK[facility] 1.114 350.1.13.10 4.2.7.2.686 [id number] [facility] 2022-09-13 00:00:00 2022-09-13 00:00:00 Telephone Ez Palacio [facility] 1.2.840.114 350.1.13.10 4.2.7.2.686 [id number] [facility] 2022-09-13 00:00:00 2022-09-13 00:00:00 Telephone Curtis Morley [facility] 1.2.840.114 350.1.13.10 4.2.7.2.686 [id number] [id number] [facility] 2022-09-12 09:30:00 2022-09-12 10:14:05 Office Visit Argentina Looney [facility] 1.2.840.114 350.1.13.10 4.2.7.2.686 [id number] [facility] 2022-09-12 09:30:00 2022-09-12 10:14:05 Outpatient ARGENTINA NOBLE [facility] [id number] [facility] 2022-09-12 00:00:00 2022-09-12 00:00:00 Orders Only Doctor Unassigned, [place] [facility] 1.2.840.114 350.1.13.10 4.2.7.2.686 [id number] [facility] 2022-09-06 00:00:00 2022-09-06 00:00:00 Patient Secure Msg Ashleighlucieoscarade Ez [facility] 1.2.840.114 350.1.13.10 4.2.7.2.686 [id number] [facility] 2022-08-29 10:30:00 2022-08-29 10:30:00 Outpatient R CURTIS MORLEY [facility] [id number] [facility] 2022-08-21 10:15:00 2022-08-21 10:15:00 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, Ang - Db [facility] 1..840.114 350.1.13.10 4.2.7.2.686 [id number] [facility] 2022-08-21 10:15:00 2022-08-21 10:09:08 Outpatient R PEDRO PABLO [facility] [id number] [facility] 2022-08-21 09:30:00 2022-08-21 09:56:40 Office Visit [facility] 1..840.114 350.1.13.10 4.2.7.2.686 [id number] [facility] 2022-08-17 13:00:00 2022-08-17 13:00:00 Outpatient R [facility] [id number] [facility] 2022-08-17 00:00:00 2022-08-17 00:00:00 Telephone Radha Trinidad [facility] 1..840.114 350.1.13.10 4.2.7.2.686 [id number] [facility] 2022-08-16 12:39:58 2022-08-16 23:59:00 Outpatient SKYLER DOUGHERTY HOWARD [facility] [id number] [facility] 2022-08-16 12:39:58 2022-08-16 23:59:00 Hospital Skyler Mata [facility] 1..840.114 350.1.13.10 4.2.7.2.686 [id number] [facility] 2022-08-16 00:00:00 2022-08-16 00:00:00 Radha Stafford [facility] 1.2.840.114 350.1.13.10 4.2.7.2.686 [id number] [facility] [id number] [facility] 2022-08-15 11:30:00 2022-08-15 11:42:13 Outpatient [facility] [id number] [facility] 2022-08-15 11:30:00 2022-08-15 11:42:13 [facility] 1.2.840.114 350.1.13.10 4.2.7.2.686 [id number] [facility] 2022-08-15 00:00:00 2022-08-15 00:00:[address] 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 1.2840.114 350.1.13.10 4.2.7.2.686 [id number] [facility] 2022-07-26 08:50:28 2022-07-26 23:59:00 Out[facility] [id number] [facility] 2022-07-26 08:50:28 2022-07-26 23:59:00 Hospital Encounter Ez Palacio [facility] 1.2840.114 350.1.13.10 4.2.7.2.686 [id number] [facility] 2022-07-26 00:00:00 2022-07-26 00:00:00 Telephone Skyler Ferrari [facility] 1.284.114 350.1.13.10 4.2.7.2.686 [id number] [id number] [facility] 2022-07-24 09:20:00 2022-07-24 10:09:23 Outpatient R SKYLER FERRARI [facility] [id number] [facility] 2022-07-24 09:20:00 2022-07-24 10:09:23 Office Visit Skyler Ferrari [facility] 1.284.114 350.1.13.10 4.2.7.2.686 [id number] [id number] [facility] 2022-07-19 00:00:00 2022-07-19 00:00:00 Telephone Ez Palacio [facility] 1.284.114 350.1.13.10 4.2.7.2.686 [id number] [facility] 2022-07-18 10:00:00 2022-07-18 11:06:06 Outpatient R VEROBETH POTTS [facility] [id number] [facility] 2022-07-18 10:00:00 2022-07-18 11:06:06 Office Visit Beth Pham [facility] 1.2.840.114 350.1.13.10 4.2.7.2.686 [id number] [facility] 2022-07-17 10:45:00 2022-07-17 11:30:28 Outpatient R [facility]ABNAMADE [facility] [id number] [facility] 2022-07-17 10:45:00 2022-07-17 11:30:28 Office Visit Ez Palacio [facility] 1.2.840.114 350.1.13.10 4.2.7.2.686 [id number] [facility] 2022-07-13 00:00:00 2022-07-13 00:00:00 Telephone [facility] 1.2.840.114 350.1.13.10 4.2.7.2.686 [id number] [id number] [facility] 2022-07-11 00:00:00 2022-07-11 00:00:00 Telephone Curtis Morley [facility] 1.2.840.114 350.1.13.10 4.2.7.2.686 [id number] [id number] [facility] 2022-07-04 00:00:00 2022-07-04 00:00:00 Radha Stafford [facility] 1.2.840.114 350.1.13.10 4.2.7.2.686 [id number] [facility] 2022-07-03 11:18:25 2022-07-03 23:59:00 Outpatient R JORY CAMILO [facility] [id number] [facility] 2022-07-03 00:00:00 2022-07-03 00:00:00 Telephone Curtis Morley [facility] 1.2840.114 350.1.13.10 4.2.7.2.686 [id number] [id number] [facility] 2022-06-30 14:31:25 2022-06-30 23:59:00 Hospital Encounter Curtis Morley [facility] 1.840.114 350.1.13.10 4.2.7.2.686 [id number] [facility] 2022-06-30 14:00:00 2022-06-30 14:30:00 [facility] 1.0.114 350.1.13.10 4.2.7.2.686 [id number] [facility] 2022-06-30 14:00:00 2022-06-30 14:00:00 Outpatient R CURTIS MORLEY [facility] [id number] [facility] 2022-06-28 00:00:00 2022-06-28 00:00:00 [facility] 1.0.114 350.1.13.10 4.2.7.2.686 [id number] [id number] [facility] 2022-06-27 00:00:00 2022-06-27 00:00:00 Radha Stafford [facility] 1.2840.114 350.1.13.10 4.2.7.2.686 [id number] [facility] 2022-06-21 00:00:00 2022-06-21 00:00:00 Patient Secure Msg Aayush 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 1..114 350.1.13.10 4.2.7.2.686 [id number] [facility] 2022-06-16 00:00:00 2022-06-16 00:00:00 Orders Only Doctor Unassigned, [place] [facility] 1.114 350.1.13.10 4.2.7.2.686 [id number] [facility] 2022-06-09 10:15:00 2022-06-09 11:34:49 Outpatient R CAMILO CORLEY [facility] [id number] [facility] 2022-06-09 10:15:00 2022-06-09 11:34:49 Office Visit Camilo Corley [facility] 1..114 350.1.13.10 4.2.7.2.686 [id number] [facility] 2022-05-22 00:00:00 2022-05-22 00:00:00 Refill Doctor Unassigned, [place] [facility] 1.2.840.114 350.1.13.10 4.2.7.2.686 [id number] [facility] 2022-05-21 00:00:00 2022-05-21 00:00:00 Refill Radha Trinidad [facility] 1.2.840.114 350.1.13.10 4.2.7.2.686 [id number] [facility] 2022-05-17 00:00:00 2022-05-17 00:00:00 Telephone Curtis Morley [facility] 1.2.840.114 350.1.13.10 4.2.7.2.686 [id number] 011 [id number] [facility] 2022-05-17 00:00:00 2022-05-17 00:00:00 Telephone Curtis Morley [facility] 1.2.840.114 350.1.13.10 4.2.7.2.686 [id number] [id number] [facility] 2022-05-17 00:00:00 2022-05-17 00:00:00 Telephone Radha Trinidad [facility] 1.2.840.114 350.1.13.10 4.2.7.2.686 [id number] [facility] 2022-05-16 10:00:00 2022-05-16 11:13:48 Outpatient R CURTIS MORLEY [facility] [id number] [facility] 2022-05-16 10:00:00 2022-05-16 11:13:48 Office Visit Curtis Morley [facility] 1.2.840.114 350.1.13.10 4.2.7.2.686 [id number] [id number] [facility] 2022-05-10 00:00:00 2022-05-10 00:00:00 Patient Secure Msg Doctor Unassigned, [place] [facility] 1.2.840.114 350.1.13.10 4.2.7.2.686 [id number] [facility] 2022-05-08 09:15:00 2022-05-08 09:30:00 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 Radha Morales [facility] 1.0.114 350.1.13.10 4.2.7.2.686 [id number] [facility] 2022-05-08 09:15:00 2022-05-08 09:15:00 Outpatient R RADHA TRINIDAD [facility] [id number] [facility] 2022-05-04 00:00:00 2022-05-04 00:00:00 Telephone Radha Trinidad [facility] 1.0.114 350.1.13.10 4.2.7.2.686 [id number] [facility] 2022-05-01 00:00:00 2022-05-01 00:00:00 Curtis Iniguez [facility] MULTISPEC [facility] 1.0.114 350.1.13.10 4.2.7.2.686 [id number] [id number] [facility] 2022-04-28 00:00:00 2022-04-28 00:00:00 Azalia Cartagena [facility] 1.840.114 350.1.13.10 4.2.7.2.686 [id number] [facility] 2022-04-26 00:00:00 2022-04-26 00:00:00 Telephone Radha Trinidad [facility] 1.2.840.114 350.1.13.10 4.2.7.2.686 [id number] [facility] 2022-04-21 00:00:00 2022-04-21 00:00:00 Patient Secure Msg Radha Trinidad [facility] 1.2.840.114 350.1.13.10 4.2.7.2.686 [id number] [facility] 2022-04-21 00:00:00 2022-04-21 00:00:00 Refill Azalia Michel [facility] [facility] 1.2.840.114 350.1.13.10 4.2.7.2.686 [id number] [facility] 2022-04-21 00:00:00 2022-04-21 00:00:00 Refill Doctor Unassigned, [place] [facility] 1.2.840.114 350.1.13.10 4.2.7.2.686 [id number] [facility] 2022-04-21 00:00:00 2022-04-21 00:00:00 Refill Ashley Raines [facility] 1.2.840.114 350.1.13.10 4.2.7.2.686 [id number] [facility] 2022-04-18 14:00:00 2022-04-18 14:30:00 Telemedici ne Visit Radha Trinidad [facility] 1.2.840.114 350.1.13.10 4.2.7.2.686 [id number] [facility] 2022-04-18 14:00:00 2022-04-18 14:00:00 Outpatient R AMOSRADHA [facility] [id number] [facility] 2022-04-18 14:00:00 2022-04-18 14:00:00 Outpatient RADHA GUPTA [facility] [id number] [facility] 2022-04-18 10:00:00 2022-04-18 10:00:00 Outpatient RADHA GUPTA [facility] [id number] [facility] 2022-04-17 00:00:00 2022-04-17 00:00:00 Telephone Radha Trinidad [facility] 1.2.840.114 350.1.13.10 4.2.7.2.686 [id number] 311 [id number] [facility] 2022-04-13 00:00:00 2022-04-13 00:00:00 Refill Radha Trinidad [facility] 1.2.840.114 350.1.13.10 4.2.7.2.686 [id number] 311 [id number] [facility] 2022-04-05 00:00:00 2022-04-05 00:00:00 Orders Only Doctor Unassigned, [place] [facility] 1.2.840.114 350.1.13.10 4.2.7.2.686 [id number] [facility] 2022-03-26 00:00:00 2022-03-26 00:00:00 Refjo-ann Radha Trinidad [facility] 1.2.840.114 350.1.13.10 4.2.7.2.686 [id number] [facility] 2022-03-26 00:00:00 2022-03-26 00:00:00 Azalia Cartagena [facility] 1.2.840.114 350.1.13.10 4.2.7.2.686 [id number] [facility] 2022-03-13 00:00:00 2022-03-13 00:00:00 Orders Only Doctor Unassigned, [place] [facility] 1.2.840.114 350.1.13.10 4.2.7.2.686 [id number] [facility] 2022-03-10 00:00:00 2022-03-10 00:00:00 Telephone Radha Trinidad [facility] 1.2.840.114 350.1.13.10 4.2.7.2.686 [id number] [facility] 2022-03-08 00:00:00 2022-03-08 00:00:00 Telephone Azalia Michel [facility] 1.2840.114 350.1.13.10 4.2.7.2.686 [id number] [facility] 2022-03-08 00:00:00 2022-03-08 00:00:00 Telephone Radha Trinidad [facility] 1.2840.114 350.1.13.10 4.2.7.2.686 [id number] [facility] 2022-03-07 14:00:00 2022-03-07 14:00:00 Outpatient R AZALIA MICHEL [facility] [id number] [facility] 2022-03-07 00:00:00 2022-03-07 00:00:00 Telephone Radha Trinidad [facility] 1.2840.114 350.1.13.10 4.2.7.2.686 [id number] [facility] 2022-03-05 00:00:00 2022-03-05 00:00:00 Refill Radha Trinidad [facility] 1.2840.114 350.1.13.10 4.2.7.2.686 [id number] [facility] 2022-02-28 00:00:2022-02-28 00:00:00 Patient Secure Msg Doctor Unassigned, [place] [facility] 1.2.840.114 350.1.13.10 4.2.7.2.686 [id number] 311 [id number] [facility] 2022-02-13 00:00:00 2022-02-13 00:00:00 Refill Radha Trinidad [facility] 1.2.840.114 350.1.13.10 4.2.7.2.686 [id number] [facility] 2022-02-10 00:00:00 2022-02-10 00:00:00 Telephone Radha Trinidad [facility] 1.2.840.114 350.1.13.10 4.2.7.2.686 [id number] [facility] 2022-02-10 00:00:00 2022-02-10 00:00:00 Refill Radha Trinidad [facility] 1.2.840.114 350.1.13.10 4.2.7.2.686 [id number] [facility] 2022-02-09 00:00:00 2022-02-09 00:00:00 Refill Radha Trinidad [facility] 1.2.840.114 350.1.13.10 4.2.7.2.686 [id number] [facility] 2022-02-09 00:00:00 2022-02-09 00:00:00 Refill Marilu [facility] 1.2.840.114 350.1.13.10 4.2.7.2.686 [id number] [facility] 2022-01-24 14:00:00 2022-01-24 14:15:00 Office Visit Azalia Michel [facility] 1.2.840.114 350.1.13.10 4.2.7.2.686 [id number] [facility] 2022-01-24 14:00:00 2022-01-24 14:00:00 Outpatient AZALIA ORELLANA [facility] [id number] [facility] 2022-01-24 14:00:00 2022-01-24 14:00:00 Outpatient Annalee MARILU AZALIA [facility] [id number] [facility] 2022-01-24 14:00:00 2022-01-24 14:00:00 Outpatient Annalee MICHELAZALIA [facility] [id number] [facility] 2022-01-24 14:00:00 2022-01-24 14:00:00 Outpatient Annalee AZALIA MICHEL [facility] [id number] [facility] 2022-01-24 00:00:00 2022-01-24 00:00:00 Patient Secure Msg Doctor Unassigned, [place] [facility] 1.2840.114 350.1.13.10 4.2.7.2.686 [id number] [facility] 2022-01-24 00:00:00 2022-01-24 00:00:00 Patient Secure Msg Trinidad Radha [facility] 1.2840.114 350.1.13.10 4.2.7.2.686 [id number] [facility] 2022-01-21 00:00:00 2022-01-21 00:00:00 Patient Secure Msg Doctor Unassigned, [place] [facility] 1.20.114 350.1.13.10 4.2.7.2.686 [id number] [facility] 2022-01-20 00:00:00 2022-01-20 00:00:00 Telephone Radha Trinidad [facility] 1.2.840.114 350.1.13.10 4.2.7.2.686 [id number] [facility] 2022-01-20 00:00:00 2022-01-20 00:00:00 Telephone Radha Trinidad [facility] 1.2.840.114 350.1.13.10 4.2.7.2.686 [id number] [facility] 2022-01-16 15:00:00 2022-01-16 15:30:00 Office Visit Radha Trinidad [facility] 1.2.840.114 350.1.13.10 4.2.7.2.686 [id number] [facility] 2022-01-16 15:00:00 2022-01-16 15:00:00 Outpatient R RADHA TRINIDAD [facility] [id number] [facility] 2022-01-16 00:00:00 2022-01-16 00:00:00 Catalina Alvarez [facility] 1.2.840.114 350.1.13.10 4.2.7.2.686 [id number] [facility] 2022-01-04 00:00:00 2022-01-04 00:00:00 Patient Secure Msg Doctor Unassigned, [place] [facility]TY [facility] 1.2840.114 350.1.13.10 4.2.7.2.686 [id number] [id number] [facility] 2022-01-04 00:00:00 2022-01-04 00:00:00 Curtis Iniguez [facility] 1.2.840.114 350.1.13.10 4.2.7.2.686 [id number] [id number] [facility] 2022-01-04 00:00:2022-01-04 00:00:00 Radha Stafford [facility] 1.2.840.114 350.1.13.10 4.2.7.2.686 [id number] [facility] 2021-12-21 00:00:00 2021-12-21 00:00:00 Honey Michel [facility] 1.2.840.114 350.1.13.10 4.2.7.2.686 [id number] [facility] 2021-12-20 14:30:00 2021-12-20 14:30:00 Outpatient Annalee MICHEL AZALIA [facility] [id number] [facility] 2021-12-07 00:00:00 2021-12-07 00:00:00 Radha Stafford [facility] 1.2.840.114 350.1.13.10 4.2.7.2.686 [id number] [facility] 2021-11-29 00:00:00 2021-11-29 00:00:00 Patient Secure Msg Trinidad [facility] 1.2.840.114 350.1.13.10 4.2.7.2.686 [id number] [facility] 2021-11-22 16:00:00 2021-11-22 16:15:00 Telemedici ne Visit Marilu [facility] 1.2.840.114 350.1.13.10 4.2.7.2.686 [id number] [facility] 2021-11-22 16:00:00 2021-11-22 16:00:00 Outpatient Annalee MICHEL AZALIA [facility] [id number] [facility] 2021-11-22 16:00:00 2021-11-22 16:00:00 Outpatient Annalee MICHEL AZALIA [facility] [id number] [facility] 2021-11-22 00:00:00 2021-11-22 00:00:00 Telephone Radha Trinidad [facility] 1.2.840.114 350.1.13.10 4.2.7.2.686 [id number] [facility] 2021-11-22 00:00:00 2021-11-22 00:00:00 Telephone Marilu [facility] 1.2.840.114 350.1.13.10 4.2.7.2.686 [id number] [facility] 2021-11-20 00:00:00 2021-11-20 00:00:00 Telephone Marilu [facility] 1.2.840.114 350.1.13.10 4.2.7.2.686 [id number] [facility] 2021-11-20 00:00:00 2021-11-20 00:00:00 [facility] 1.2.840.114 350.1.13.10 4.2.7.2.686 [id number] [facility] 2021-11-20 00:00:00 2021-11-20 00:00:00 Telephone Byron Berry [facility] 1.2.840.114 350.1.13.10 4.2.7.2.686 [id number] [facility] 2021-11-15 08:45:00 2021-11-15 08:45:00 Outpatient CAMILO ISRAEL [facility] [id number] [facility] 2021-11-15 08:45:00 2021-11-15 08:45:00 Outpatient CAMILO [facility] [id number] [facility] 2021-11-14 10:46:00 2021-11-14 15:24:00 Outpatient R MARILUHU GODDARDELA [facility] [id number] [facility] 2021-11-14 10:46:00 2021-11-14 15:24:00 Hospital Encounter Azalia Michel [facility] 1.2840.114 350.1.13.10 4.2.7.2.686 [id number] [facility] 2021-11-14 11:43:00 2021-11-14 13:33:00 Surgery Marilu [facility] 1.2840.114 350.1.13.10 4.2.7.2.686 [id number] [facility] 2021-11-11 14:00:00 2021-11-11 14:15:00 Laboratory Only Only, Adc Test Azalia Michel [facility] 1.20.114 350.1.13.10 4.2.7.2.686 [id number] [facility] 2021-11-11 14:00:00 2021-11-11 14:00:00 Outpatient Annalee POTTSMARILUHU GODDARDELA [facility] [id number] [facility] [facility] 2021-11-08 14:15:00 2021-11-08 14:30:00 Office Visit Marilu, Azalia [facility] 1.20.114 350.1.13.10 4.2.7.2.686 [id number] [facility] 2021-11-08 14:15:00 2021-11-08 14:15:00 Outpatient R MARILU AZALIA [facility] [id number] [facility] 2021-11-08 00:00:00 2021-11-08 00:00:00 Radha Stafford [facility] 1.2840.114 350.1.13.10 4.2.7.2.686 [id number] [facility] 2021-11-04 11:00:00 2021-11-04 11:00:00 Outpatient AZALIA ORELLANA [facility] [id number] [facility] 2021-10-26 00:00:00 2021-10-26 00:00:00 Patient Secure Curtis Figueroa [facility] 1..840.114 350.1.13.10 4.2.7.2.686 [id number] [facility] 2021-10-22 00:00:00 2021-10-22 00:00:00 Radha Stafford [facility] 1..840.114 350.1.13.10 4.2.7.2.686 [id number] [facility] 2021-10-17 09:30:00 2021-10-17 09:30:00 Outpatient UCRTIS HARRISON [facility] [id number] [facility] 2021-10-05 11:30:00 2021-10-05 11:30:00 Outpatient SKYLER DOUGHERTY HOWARD [facility] [id number] [facility] 2021-10-05 00:00:00 2021-10-05 00:00:00 Radha Stafford [facility] ..840.114 350.1.13.10 4.2.7.2.686 [id number] [facility] 2021-09-29 08:30:00 2021-09-29 08:30:00 Outpatient CURTIS HARRISON [facility] [id number] [facility] 2021-09-29 08:30:00 2021-09-29 08:30:00 Outpatient CURTIS HARRISON [facility] [id number] [facility] 2021-09-29 08:30:00 2021-09-29 08:30:00 Outpatient CURTIS HARRISON [facility] [id number] [facility] 2021-09-16 14:30:00 2021-09-16 14:30:00 Outpatient RADHA GUPTA [facility] [id number] [facility] 2021-09-16 14:30:00 2021-09-16 14:30:00 Outpatient RADAH GUPTA [facility] [id number] [facility] 2021-09-15 00:00:00 2021-09-15 00:00:00 Refill Curtis Morley [facility] 1.114 350.1.13.10 4.2.7.2.686 [id number] [facility] 2021-09-06 09:00:00 2021-09-06 09:30:00 Office Visit Radha Trinidad [facility] 1.114 350.1.13.10 4.2.7.2.686 [id number] [facility] 2021-09-06 09:00:00 2021-09-06 09:00:00 Outpatient RADHA GUPTA [facility] [id number] [facility] 2021-09-06 09:00:00 2021-09-06 09:00:00 Outpatient RADHA GUPTA [facility] [id number] [facility] 2021-09-06 00:00:00 2021-09-06 00:00:00 Orders Only Doctor Unassigned, [place] [facility] 1.114 350.1.13.10 4.2.7.2.686 [id number] [facility] 2021-09-06 00:00:00 2021-09-06 00:00:00 Curtis Randolph [facility] 1.114 350.1.13.10 4.2.7.2.686 [id number] [facility] 2021-09-01 00:00:00 2021-09-01 00:00:00 Radha Stafford [facility] 1.2.840.114 350.1.13.10 4.2.7.2.686 [id number] [facility] 2021-08-10 00:00:00 2021-08-10 00:00:00 Refill Ashley Raines [facility] 1.2.840.114 350.1.13.10 4.2.7.2.686 [id number] [facility] 2021-08-03 00:00:00 2021-08-03 00:00:00 Radha Stafford [facility] 1.2.840.114 350.1.13.10 4.2.7.2.686 [id number] [facility] 2021-08-03 00:00:00 2021-08-03 00:00:00 Radha Stafford [facility] 1.2.840.114 350.1.13.10 4.2.7.2.686 [id number] [facility] 2021-08-02 00:00:00 2021-08-02 00:00:00 Radha Stafford [facility] 1.2.840.114 350.1.13.10 4.2.7.2.686 [id number] [facility] 2021-08-02 00:00:00 2021-08-02 00:00:00 Ashley Ruvalcaba [facility] 1.2.840.114 350.1.13.10 4.2.7.2.686 [id number] [facility] 2021-08-02 00:00:00 2021-08-02 00:00:00 New Prieto [facility] 1.2.840.114 350.1.13.10 4.2.7.2.686 [id number] [facility] 2021-08-02 00:00:00 2021-08-02 00:00:00 Catalina Alvarez [facility] 1.2.840.114 350.1.13.10 4.2.7.2.686 [id number] [facility] 2021-08-01 00:00:00 2021-08-01 00:00:00 Telephone Rene Olvera [facility] 1.840.114 350.1.13.10 4.2.7.2.686 [id number] [id number] [facility] 2021-07-29 12:53:28 2021-07-29 23:59:00 Hospital Encounter Curtis Morley Scooter [facility] 1..114 350.1.13.10 4.2.7.2.686 [id number] [facility] 2021-07-29 12:53:28 2021-07-29 23:59:00 Outpatient CURTIS HARRISON [facility] [id number] [facility] 2021-07-29 13:30:00 2021-07-29 14:00:00 Office Visit Curtis Morley Scooter [facility] 1..114 350.1.13.10 4.2.7.2.686 [id number] [facility] 2021-07-29 13:30:00 2021-07-29 13:30:00 Outpatient CURTIS HARRISON [facility] [id number] [facility] 2021-07-28 00:00:00 2021-07-28 00:00:00 Telephone Curtis Morley [facility] 1.20.114 350.1.13.10 4.2.7.2.686 [id number] [id number] [facility] 2021-07-27 00:00:00 2021-07-27 00:00:00 [facility] 1.20.114 350.1.13.10 4.2.7.2.686 [id number] [id number] [facility] 2021-07-20 16:45:00 2021-07-20 17:37:40 Outpatient SAMINA BLACK [facility] [id number] [facility] 2021-07-20 16:19:24 2021-07-20 17:37:40 Urgent Care Samina Booker A Unknown, Attending [facility] 1..114 350.1.13.10 4.2.7.2.686 [id number] [facility] 2021-07-05 10:00:00 2021-07-05 10:00:00 Outpatient CURTIS HARRISON [facility] [id number] [facility] 2021-07-01 16:00:00 2021-07-01 14:32:17 Outpatient SAMINA BLACK [facility] [id number] [facility] 2021-07-01 11:41:16 2021-07-01 11:56:16 Nurse Visit Nurse, Anthony Marroquin Urgent Unknown, Attending [facility] 1..114 350.1.13.10 4.2.7.2.686 [id number] [facility] 2021-06-30 00:00:00 2021-06-30 00:00:00 [facility] 1.2.114 350.1.13.10 4.2.7.2.686 [id number] [facility] 2021-06-28 10:23:31 2021-06-28 11:23:31 Nurse Visit Therapy, Tejinder Calloway [facility] 1.2.840.114 350.1.13.10 4.2.7.2.686 [id number] [facility] 2021-06-28 10:30:00 2021-06-28 10:30:00 Outpatient R TEJINDER VALLES [facility] [id number] [facility] 2021-06-27 09:00:00 2021-06-27 09:00:00 Outpatient R RADHA TRINIDAD [facility] [id number] [facility] 2021-06-27 08:22:01 2021-06-27 08:52:01 Telemedici ne Visit Radha Trinidad [facility] 1.84.114 350.1.13.10 4.2.7.2.686 [id number] 311 [id number] [facility] 2021-06-25 09:06:44 2021-06-25 09:55:18 Urgent Care Ashley Raines Unknown, Attending [facility] 1.840.114 350.1.13.10 4.2.7.2.686 [id number] [facility] 2021-06-25 09:00:00 2021-06-25 09:55:18 Outpatient R ASHLEY RAINES [facility] [id number] [facility] 2021-06-06 17:12:40 2021-06-06 17:50:36 Urgent Care Ever Fierro Unknown, Attending [facility] 1..840.114 350.1.13.10 4.2.7.2.686 [id number] [facility] 2021-06-06 17:15:00 2021-06-06 17:15:00 Outpatient R UNKNOWN, ATTENDING [facility] [id number] [facility] 2021-06-06 00:00:00 2021-06-06 00:00:00 Telephone Peyman Curtis [facility] 1.2.840.114 350.1.13.10 4.2.7.2.686 [id number] [facility] 2021-06-04 00:00:00 2021-06-04 00:00:00 Solis Radha Trinidad [facility] 1.2.840.114 350.1.13.10 4.2.7.2.686 [id number] 311 [id number] [facility] 2021-05-31 00:00:00 2021-05-31 00:00:00 RefRadha Caldwell [facility] 1.2.840.114 350.1.13.10 4.2.7.2.686 [id number] [facility] 2021-05-20 00:00:00 2021-05-20 00:00:00 Telephone Curtis Morley [facility] 1.2.840.114 350.1.13.10 4.2.7.2.686 [id number] [facility] 2021-05-03 09:27:09 2021-05-03 09:42:09 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, Gal [facility] Stew Barrington Peck [facility] 1.2.840.114 350.1.13.10 4.2.7.2.686 [id number] 311 [id number] [facility] 2021-05-03 09:27:09 2021-05-03 09:42:09 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, Gal c Stew Barrington Peck [facility] 1.2.840.114 350.1.13.10 4.2.7.2.686 [id number] [facility] 2021-05-03 08:00:00 2021-05-03 08:00:00 Outpatient CATALINA BARNHART [facility] [id number] [facility] 2021-04-28 14:00:00 2021-04-28 14:00:00 Outpatient R CURTIS MORLEY [facility] [id number] [facility] 2021-04-28 00:00:00 2021-04-28 00:00:00 Telephone Curtis Morley [facility] 1.840.114 350.1.13.10 4.2.7.2.686 [id number] [facility] 2021-04-25 15:41:06 2021-04-25 16:11:06 Office Visit Catalina Mendez [facility] 1..840.114 350.1.13.10 4.2.7.2.686 [id number] [facility] 2021-04-25 13:30:00 2021-04-25 13:30:00 Outpatient CATALINA BARNHART [facility] [id number] [facility] 2021-04-19 11:30:00 2021-04-19 11:30:00 Outpatient HEATH PAPPAS [facility] [id number] [facility] 2021-04-16 00:00:00 2021-04-16 00:00:00 Radha Stafford [facility] 1.2.840.114 350.1.13.10 4.2.7.2.686 [id number] [facility] 2021-04-16 00:00:00 2021-04-16 00:00:00 Rahda Stafford [facility] 1.2.840.114 350.1.13.10 4.2.7.2.686 [id number] [facility] 2021-03-29 16:04:00 2021-03-29 23:55:00 Emergency Brady Ivy Ped[facility] 1.2.840.114 350.1.13.10 4.2.7.2.686 [id number] [facility] 2021-03-28 00:00:00 2021-03-28 00:00:00 Patient Secure Msg Doctor Unassigned, [place] [facility] 1.2.840.114 350.1.13.10 4.2.7.2.686 [id number] [facility] 2021-03-28 00:00:00 2021-03-28 00:00:00 Letter (Out) Norma Parker [facility] 1.2.840.114 350.1.13.10 4.2.7.2.686 [id number] [facility] 2021-03-27 00:00:00 2021-03-27 00:00:00 Telephone Samina Booker [facility] 1.2.840.114 350.1.13.10 4.2.7.2.686 [id number] [facility] 2021-03-26 16:32:41 2021-03-26 18:13:07 Urgent Care Samina Booker [facility] 1.2.840.114 350.1.13.10 4.2.7.2.686 [id number] 370 [id number] [facility] 2021-03-26 16:30:00 2021-03-26 16:30:00 Outpatient SAMINA BLACK [facility] [id number] [facility] 2021-03-25 08:00:00 2021-03-25 08:00:00 Outpatient CURTIS HARRISON [facility] [id number] [facility] 2021-03-24 15:42:41 2021-03-24 16:12:41 Telemedici ne Visit [place] [facility] [place] [facility] 1.840.114 350.1.13.10 4.2.7.2.686 [id number] [facility] 2021-03-24 16:00:00 2021-03-24 16:00:00 Outpatient R [place] [facility] [id number] [facility] 2021-03-24 09:30:00 2021-03-24 09:30:00 Outpatient R CURTIS MORLEY [facility] [id number] [facility] 2021-03-24 00:00:00 2021-03-24 00:00:00 Telephone Curtis Morley [facility] 1.840.114 350.1.13.10 4.2.7.2.686 [id number] [facility] 2021-03-21 14:56:09 2021-03-21 15:11:09 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 [place] [facility] 1..840.114 350.1.13.10 4.2.7.2.686 [id number] [facility] 2021-03-21 14:45:00 2021-03-21 14:45:00 Outpatient R [place] [facility] [id number] [facility] 2021-03-21 00:00:00 2021-03-21 00:00:00 Telephone Curtis Morley [facility] 1..840.114 350.1.13.10 4.2.7.2.686 [id number] [id number] [facility] 2021-03-04 00:00:00 2021-03-04 00:00:00 Patient Secure Msg [place] [facility] 1.2840.114 350.1.13.10 4.2.7.2.686 [id number] [id number] [facility] 2021-03-02 00:00:00 2021-03-02 00:00:00 Refill Radha Trinidad [facility] 1.2840.114 350.1.13.10 4.2.7.2.686 [id number] [facility] 2021-02-22 13:46:43 2021-02-22 14:41:46 Office Visit [place] [facility] 1.2840.114 350.1.13.10 4.2.7.2.686 [id number] [id number] [facility] 2021-02-22 14:00:00 2021-02-22 14:00:00 Outpatient R [place] [facility] [id number] [facility] 2021-02-16 00:00:00 2021-02-16 00:00:00 Telephone Radha Trinidad [facility] 1.2.840.114 350.1.13.10 4.2.7.2.686 [id number] 311 [id number] [facility] 2021-02-12 13:51:08 2021-02-12 15:01:56 Urgent Care Care, Gal Adult Urgent Unknown, Attending Ashley Raines [facility] 1.2.840.114 350.1.13.10 4.2.7.2.686 [id number] [facility] 2021-02-12 13:45:00 2021-02-12 13:45:00 Outpatient R UNKNOWN, ATTENDING [facility] [id number] [facility] 2021-02-12 00:00:00 2021-02-12 00:00:00 Telephone Curtis Morley [facility] 1.2.840.114 350.1.13.10 4.2.7.2.686 [id number] [id number] [facility] 2021-02-11 00:00:00 2021-02-11 00:00:00 Telephone Radha Trinidad [facility] 1.2.840.114 350.1.13.10 4.2.7.2.686 [id number] [facility] 2021-02-08 09:00:00 2021-02-08 09:00:00 Outpatient R CURTIS MORLEY [facility] [id number] [facility] 2021-02-08 00:00:00 2021-02-08 00:00:00 Telephone Radha Trinidad [facility] 1.2.840.114 350.1.13.10 4.2.7.2.686 [id number] [facility] 2021-02-01 00:00:00 2021-02-01 00:00:00 [facility] [place] [facility] 1.2.840.114 350.1.13.10 4.2.7.2.686 [id number] [facility] 2021-01-31 00:00:00 2021-01-31 00:00:00 Orders Only Doctor Unassigned, [place] [facility] 1.2.840.114 350.1.13.10 4.2.7.2.686 [id number] [facility] 2021-01-30 00:00:00 2021-01-30 00:00:00 Chan Suarez [facility] MULTISPEC [facility] 1.2.840.114 350.1.13.10 4.2.7.2.686 [id number] [facility] 2021-01-30 00:00:00 2021-01-30 00:00:00 Refill AmosRadha [facility] 1..840.114 350.1.13.10 4.2.7.2.686 [id number] [facility] 2021-01-25 13:30:00 2021-01-25 13:30:00 Outpatient RADHA GUPTA [facility] [id number] [facility] 2021-01-24 15:50:41 2021-01-24 16:59:23 Office Visit AmosRadha [facility] 1..840.114 350.1.13.10 4.2.7.2.686 [id number] [facility] 2021-01-24 16:00:00 2021-01-24 16:00:00 Outpatient RADHA GUPTA [facility] [id number] [facility] 2021-01-20 09:00:00 2021-01-20 09:00:00 Outpatient RADHA GUPTA [facility] [id number] [facility] 2021-01-11 09:30:00 2021-01-11 09:30:00 Outpatient CURTIS HARRISON [facility] [id number] [facility] 2021-01-07 11:30:00 2021-01-07 11:30:00 Outpatient AZALIA ORELLANA [facility] [id number] [facility] 2021-01-05 00:00:00 2021-01-05 00:00:00 Telephone Radha Trinidad [facility] 1..840.114 350.1.13.10 4.2.7.2.686 [id number] [facility] 2021-01-03 00:00:00 2021-01-03 00:00:00 Patient Secure Azalia Sepulveda [facility] 1..840.114 350.1.13.10 4.2.7.2.686 [id number] [facility] 2020-12-31 00:00:00 2020-12-31 00:00:00 Patient Secure Msg Doctor Unassigned, [place] [facility] 1.2.840.114 350.1.13.10 4.2.7.2.686 [id number] [facility] 2020-12-31 00:00:00 2020-12-31 00:00:00 Refill Doctor Unassigned, [place] [facility] 1.2.840.114 350.1.13.10 4.2.7.2.686 [id number] [facility] 2020-12-31 00:00:00 2020-12-31 00:00:00 Refill Cait Sainz [facility] 1.2.840.114 350.1.13.10 4.2.7.2.686 [id number] [facility] 2020-12-31 00:00:00 2020-12-31 00:00:00 Refill Doctor Unassigned, [place] [facility] 1.2.840.114 350.1.13.10 4.2.7.2.686 [id number] [facility] 2020-12-30 17:19:08 2020-12-30 17:34:08 Urgent Care Monika Summers F Unknown, Attending [facility] 1.2.840.114 350.1.13.10 4.2.7.2.686 [id number] [facility] 2020-12-30 17:15:00 2020-12-30 17:15:00 Outpatient R UNKNOWN, ATTENDING [facility] [id number] [facility] 2020-12-24 10:30:00 2020-12-24 10:30:00 Outpatient R AZALIA MICHEL [facility] [id number] [facility] 2020-12-24 00:00:00 2020-12-24 00:00:00 Orders Only Doctor Unassigned, [place] [facility] 1.2114 350.1.13.10 4.2.7.2.686 [id number] [facility] 2020-12-21 09:12:04 2020-12-21 10:15:32 Office Visit Peyman Curtis [facility] [place] [facility] 1. 350.1.13.10 4.2.7.2.686 [id number] [facility] 2020-12-21 09:30:00 2020-12-21 09:30:00 Outpatient R CURITS MORLEY [facility] [id number] [facility] 2020-12-20 00:00:00 2020-12-20 00:00:00 Telephone Peyman Curtis [facility] [place] [facility] 1.114 350.1.13.10 4.2.7.2.686 [id number] [facility] 2020-12-14 08:55:44 2020-12-14 08:56:16 [facility] 1.84.114 350.1.13.10 4.2.7.2.686 [id number] [facility] 2020-12-14 08:15:00 2020-12-14 08:15:00 Outpatient R CAMILO CORLEY [facility] [id number] [facility] 2020-12-14 07:58:10 2020-12-14 08:13:10 [facility] 1.840.114 350.1.13.10 4.2.7.2.686 [id number] [facility] 2020-12-14 08:00:00 2020-12-14 08:00:00 Outpatient R JORY CAMILO [facility] [id number] [facility] 2020-12-13 11:00:00 2020-12-13 11:00:00 Outpatient R EMILY ARGUETA [facility] [id number] [facility] 2020-12-08 00:00:00 2020-12-08 00:00:00 Patient Secure Msg Doctor Unassigned, [place] [facility] 1.840.114 350.1.13.10 4.2.7.2.686 [id number] [facility] 2020-12-03 08:06:52 2020-12-03 09:07:25 Office Visit [facility] Res[facility] Jenny Avila [facility] 1.840.114 350.1.13.10 4.2.7.2.686 [id number] [facility] 2020-12-03 08:00:00 2020-12-03 08:00:00 Outpatient R [facility] [id number] [facility] 2020-12-01 00:00:00 2020-12-01 00:00:00 Radha Stafford [facility] 1..840.114 350.1.13.10 4.2.7.2.686 [id number] [facility] 2020-11-29 00:00:00 2020-11-29 00:00:00 Patient Secure Msg Doctor Unassigned, [place] [facility] 1..840.114 350.1.13.10 4.2.7.2.686 [id number] [facility] 2020-11-26 09:13:13 2020-11-26 09:43:13 Office Visit [place] [facility] 1.840.114 350.1.13.10 4.2.7.2.686 [id number] [facility] 2020-11-26 09:00:00 2020-11-26 09:00:00 Outpatient R BUDDY GUADALUPEMAD [facility] [id number] [facility] 2020-11-15 11:15:00 2020-11-15 11:15:00 Outpatient R EMILY ARGUETA [facility] [id number] [facility] 2020-11-09 16:30:40 2020-11-09 17:00:40 Office Visit Radha Trinidad [facility] 1.840.114 350.1.13.10 4.2.7.2.686 [id number] [facility] 2020-11-09 16:30:00 2020-11-09 16:30:00 Outpatient R RADHA TRINIDAD [facility] [id number] [facility] 2020-11-02 00:00:00 2020-11-02 00:00:00 Patient Outreach [place] [facility] 1.840.114 350.1.13.10 4.2.7.2.686 [id number] [facility] 2020-10-29 00:00:00 2020-10-29 00:00:00 Telephone Radha Trinidad [facility] 1.840.114 350.1.13.10 4.2.7.2.686 [id number] [facility] 2020-10-28 13:00:00 2020-10-28 23:59:00 Hospital Encounter Radha Trinidad [facility] 1.840.114 350.1.13.10 4.2.7.2.686 [id number] [facility] 2020-10-28 00:00:00 2020-10-28 00:00:00 Outpatient R TRINIDAD, RADHA [facility] [id number] [facility] 2020-10-22 00:00:00 2020-10-22 00:00:00 Telephone Radha Trinidad [facility] 1.2840.114 350.1.13.10 4.2.7.2.686 [id number] [facility] [facility] 2020-10-21 08:04:47 2020-10-21 08:59:28 Office Visit Radha Trinidad [facility] 1.0.114 350.1.13.10 4.2.7.2.686 [id number] [facility] 2020-10-21 08:00:00 2020-10-21 08:00:00 Outpatient R TRINIDAD, RADHA [facility] [id number] [facility] 2020-10-18 07:52:00 2020-10-18 11:07:00 Hospital Encounter Curtis Morley [facility] 1.0.114 350.1.13.10 4.2.7.2.686 [id number] [facility] 2020-10-18 00:00:00 2020-10-18 00:00:00 Orders Only Doctor Unassigned, [place] [facility] 1.0.114 350.1.13.10 4.2.7.2.686 [id number] [facility] 2020-10-15 09:59:05 2020-10-15 10:14:05 Laboratory Only Only, Pcp Test Curtis Morley [facility] 1.840.114 350.1.13.10 4.2.7.2.686 [id number] [facility] 2020-10-15 10:00:00 2020-10-15 10:00:00 Outpatient CURTIS HARRISON [facility] [id number] [facility] 2020-10-14 00:00:00 2020-10-14 00:00:00 Telephone Radha Trinidad [facility] 1.2840.114 350.1.13.10 4.2.7.2.686 [id number] [facility] 2020-10-14 00:00:00 2020-10-14 00:00:00 Telephone Radha Trinidad [facility] 1.0.114 350.1.13.10 4.2.7.2.686 [id number] [facility] 2020-10-14 00:00:00 2020-10-14 00:00:00 Telephone Emily Argueta [facility] 1.0.114 350.1.13.10 4.2.7.2.686 [id number] [facility] 2020-10-13 08:47:44 2020-10-13 10:04:25 Office Visit Radha Trinidad [facility] 1.2840.114 350.1.13.10 4.2.7.2.686 [id number] [facility] 2020-10-13 09:00:00 2020-10-13 09:00:00 Outpatient RADHA GUPTA [facility] [id number] [facility] 2020-10-11 11:15:00 2020-10-11 11:15:00 Outpatient EMILY MADERA [facility] [id number] [facility] 2020-10-06 00:00:00 2020-10-06 00:00:00 Patient Secure Msg Doctor Unassigned, [place] [facility] 1..114 350.1.13.10 4.2.7.2.686 [id number] [facility] 2020-09-24 00:00:00 2020-09-24 00:00:00 Aiyana Llanes [facility] 1.2.840.114 350.1.13.10 4.2.7.2.686 [id number] [facility] 2020-09-23 08:43:07 2020-09-23 09:51:11 [facility] 1.2840.114 350.1.13.10 4.2.7.2.686 [id number] [facility] 2020-09-23 09:00:00 2020-09-23 09:00:00 Outpatient R CURTIS MORLEY [facility] [id number] [facility] 2020-09-23 00:00:00 2020-09-23 00:00:00 Prep For Surgery Chan Souza [facility] 1.840.114 350.1.13.10 4.2.7.2.686 [id number] [facility] 2020-09-17 14:30:00 2020-09-17 14:30:00 Outpatient R [facility] [id number] [facility] 2020-09-13 00:00:00 2020-09-13 00:00:00 Letter (Out) Norma Parker [facility] 1.840.114 350.1.13.10 4.2.7.2.686 [id number] [facility] 2020-09-11 11:21:37 2020-09-11 11:36:37 Urgent Care Olu Ashley [facility] 1.2.840.114 350.1.13.10 4.2.7.2.686 [id number] [facility] 2020-09-11 11:30:00 2020-09-11 11:30:00 Outpatient R ASHLEY RAINES [facility] [id number] [facility] 2020-09-08 19:59:31 2020-09-08 20:28:35 Urgent Care Samina Booker A [facility] 1.2.840.114 350.1.13.10 4.2.7.2.686 [id number] [facility] 2020-09-08 19:45:00 2020-09-08 19:45:00 Outpatient R SAMINA BOOKER [facility] [id number] [facility] 2020-09-02 16:33:28 2020-09-02 16:48:28 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 [facility] Skyler Ferrari [facility] 1.2840.114 350.1.13.10 4.2.7.2.686 [id number] [facility] 2020-09-02 16:03:20 2020-09-02 16:33:20 Office Visit Skyler Ferrari [facility] 1.20.114 350.1.13.10 4.2.7.2.686 [id number] [facility] 2020-09-02 16:00:00 2020-09-02 16:00:00 Outpatient SKYLER DOUGHERTY [facility] [id number] [facility] 2020-08-27 10:22:19 2020-08-27 11:41:08 Office Visit Emily Argueta [facility] 1.2840.114 350.1.13.10 4.2.7.2.686 [id number] [facility] 2020-08-27 10:30:00 2020-08-27 10:30:00 Outpatient R EMILY ARGUETA [facility] [id number] [facility] 2020-08-27 00:00:00 2020-08-27 00:00:00 Orders Only Doctor Unassigned, [place] [facility] 1..840.114 350.1.13.10 4.2.7.2.686 [id number] [facility] 2020-08-20 13:00:00 2020-08-20 13:00:00 Outpatient EMILY MADERA [facility] [id number] [facility] 2020-08-19 10:34:33 2020-08-19 11:38:15 Office Visit Micheline Mixon [facility] 1..840.114 350.1.13.10 4.2.7.2.686 [id number] [facility] 2020-08-19 10:30:00 2020-08-19 10:30:00 Outpatient MICHELINE NIELSON [facility] [id number] [facility] 2020-08-17 00:00:00 2020-08-17 00:00:00 Patient Secure Msg Guadalupe Condon [facility] 1..840.114 350.1.13.10 4.2.7.2.686 [id number] [facility] 2020-08-12 09:30:00 2020-08-12 09:30:00 Outpatient SKYLER DOUGHERTY [facility] [id number] [facility] 2020-07-31 16:16:45 2020-07-31 16:31:45 Urgent Care Ashley Raines [facility] 1..840.114 350.1.13.10 4.2.7.2.686 [id number] [facility] 2020-07-31 16:15:00 2020-07-31 16:15:00 Outpatient ASHLEY LIZAMA [facility] [id number] [facility] 2020-07-31 00:00:00 2020-07-31 00:00:00 Patient Secure Msg Doctor Unassigned, [place] [facility] 1.2.840.114 350.1.13.10 4.2.7.2.686 [id number] [facility] 2020-07-31 00:00:00 2020-07-31 00:00:00 Orders Only Doctor Unassigned, [place] [facility] 1.2.840.114 350.1.13.10 4.2.7.2.686 [id number] [facility] 2020-07-29 00:00:00 2020-07-29 00:00:00 Patient Secure Msg Doctor Unassigned, [place] [facility] 1.2.840.114 350.1.13.10 4.2.7.2.686 [id number] [facility] 2020-07-28 16:05:38 2020-07-28 16:20:38 Urgent Care Samina Booker A Unknown, Attending [facility] 1.2.840.114 350.1.13.10 4.2.7.2.686 [id number] [facility] 2020-07-28 16:15:00 2020-07-28 16:15:00 Outpatient R UNKNOWN, ATTENDING [facility] [id number] [facility] 2020-07-27 00:00:00 2020-07-27 00:00:00 Telephone Radha Trinidad [facility] 1.2.840.114 350.1.13.10 4.2.7.2.686 [id number] [facility] 2020-07-27 00:00:00 2020-07-27 00:00:00 Telephone Radha Trinidad [facility] 1.2.840.114 350.1.13.10 4.2.7.2.686 [id number] [facility] 2020-07-27 00:00:00 2020-07-27 00:00:00 Telephone Radha Trinidad [facility] 1.2.840.114 350.1.13.10 4.2.7.2.686 [id number] [facility] 2020-07-23 14:42:56 2020-07-23 15:29:43 Office Visit Aiyana Hollingsworth [facility] 1.2.840.114 350.1.13.10 4.2.7.2.686 [id number] [facility] 2020-07-23 14:45:00 2020-07-23 14:45:00 Outpatient R AIYANA HOLLINGSWORTH [facility] [id number] [facility] 2020-07-23 10:06:48 2020-07-23 10:46:48 Ancillary Visit Maki Jacobo Brian A [facility] 1.2.840.114 350.1.13.10 4.2.7.2.686 [id number] [facility] 2020-07-23 00:00:00 2020-07-23 00:00:00 Telephone Radha Trinidad [facility] 1.2.840.114 350.1.13.10 4.2.7.2.686 [id number] [facility] 2020-07-22 00:00:00 2020-07-22 00:00:00 Nurse Triage Bessie Alexandre [facility] 1.2.840.114 350.1.13.10 4.2.7.2.686 [id number] [facility] 2020-07-17 12:40:52 2020-07-17 23:59:00 Hospital Encounter Skyler Ferrari [facility] 1.2.840.114 350.1.13.10 4.2.7.2.686 [id number] [facility] 2020-07-17 12:40:52 2020-07-17 23:59:00 Outpatient SKYLER DOUGHERTY [facility] [id number] [facility] 2020-07-16 13:30:27 2020-07-16 14:23:07 Office Visit Fellow, Cardiology Anayeli [facility] 1..114 350.1.13.10 4.2.7.2.686 [id number] [facility] 2020-07-16 13:30:00 2020-07-16 13:30:00 Outpatient Annalee JONESErna CONDON [facility] [id number] [facility] 2020-07-15 12:00:00 2020-07-15 12:00:00 Outpatient SKYLER DOUGHERTY [facility] [id number] [facility] 2020-07-13 10:03:54 2020-07-13 12:32:51 Office Visit Octavio Anderson [facility] 1.84.114 350.1.13.10 4.2.7.2.686 [id number] [facility] 2020-07-13 10:10:00 2020-07-13 10:10:00 Outpatient OCTAVIO HALE [facility] [id number] [facility] 2020-07-13 08:09:29 2020-07-13 09:09:29 Ancillary Visit Rain Ross Brian A [facility] 1.84.114 350.1.13.10 4.2.7.2.686 [id number] [facility] 2020-07-13 08:00:00 2020-07-13 08:00:00 Outpatient BRADY WOLFE [facility] [id number] [facility] 2020-06-30 15:35:16 2020-06-30 16:05:16 Office Visit Skyler Ferrari [facility] 1..114 350.1.13.10 4.2.7.2.686 [id number] [facility] 2020-06-30 15:30:00 2020-06-30 15:30:00 Outpatient SKYLER DOUGHERTY [facility] [id number] [facility] 2020-06-30 09:49:13 2020-06-30 10:57:25 Office Visit Lucille Banks [facility] 1.840.114 350.1.13.10 4.2.7.2.686 [id number] [facility] 2020-06-25 14:51:00 2020-06-25 16:02:06 Office Visit Aiyana Hollingsworth [facility] 1.84.114 350.1.13.10 4.2.7.2.686 [id number] [facility] 2020-06-25 15:00:00 2020-06-25 15:00:00 Outpatient R AIYANA HOLLINGSWORTH [facility] [id number] [facility] 2020-06-23 00:00:00 2020-06-23 00:00:00 Telephone Radha Trinidad [facility] 1..840.114 350.1.13.10 4.2.7.2.686 [id number] [facility] 2020-06-22 08:00:00 2020-06-22 08:00:00 Outpatient BRADY WOLFE [facility] [id number] [facility] 2020-06-22 00:00:00 2020-06-22 00:00:00 Refill Doctor Unassigned, [place] [facility] 1.84.114 350.1.13.10 4.2.7.2.686 [id number] [facility] 2020-06-14 12:54:45 2020-06-14 14:42:06 Office Visit Lucille Banks [facility] 1.2.840.114 350.1.13.10 4.2.7.2.686 [id number] [facility] 2020-06-14 13:00:00 2020-06-14 13:00:00 Outpatient Annalee BANKSLUCILLE [facility] [id number] [facility] 2020-06-07 08:59:10 2020-06-07 10:09:23 Office Visit Trinidad, Radha [facility] 1.2.840.114 350.1.13.10 4.2.7.2.686 [id number] [facility] 2020-06-07 09:00:00 2020-06-07 09:00:00 Outpatient R RADHA TRINIDAD [facility] [id number] [facility] 2020-06-07 00:00:00 2020-06-07 00:00:00 Patient Secure Msg Doctor Unassigned, [place] [facility] 1.840.114 350.1.13.10 4.2.7.2.686 [id number] [facility] 2020-06-05 00:00:00 2020-06-05 00:00:00 Telephone [facility] 1.840.114 350.1.13.10 4.2.7.2.686 [id number] [id number] [facility] 2020-06-05 00:00:00 2020-06-05 00:00:00 Telephone [facility] 1.2840.114 350.1.13.10 4.2.7.2.686 [id number] [facility] 2020-06-05 00:00:00 2020-06-05 00:00:00 Telephone GrigsbyTony otto [facility] 1.840.114 350.1.13.10 4.2.7.2.686 [id number] [facility] 2020-06-05 00:00:00 2020-06-05 00:00:00 Patient Secure Msg Doctor Unassigned, [place] [facility] 1.2.840.114 350.1.13.10 4.2.7.2.686 [id number] [facility] 2020-06-05 00:00:00 2020-06-05 00:00:00 Patient Secure Msg Doctor Unassigned, [place] [facility] 1.2840.114 350.1.13.10 4.2.7.2.686 [id number] [facility] 2020-06-04 15:21:29 2020-06-04 16:31:00 Office Visit Jordan [facility] Keri Yee [facility] 1.840.114 350.1.13.10 4.2.7.2.686 [id number] [facility] 2020-06-04 15:30:00 2020-06-04 15:30:00 Outpatient R [facility] [id number] [facility] 2020-06-04 00:00:00 2020-06-04 00:00:00 Patient Secure Msg Doctor Unassigned, [place] [facility] 1.2840.114 350.1.13.10 4.2.7.2.686 [id number] [facility] 2020-06-03 10:01:28 2020-06-03 10:31:28 Office Visit Micheline Mixon [facility] 1.0.114 350.1.13.10 4.2.7.2.686 [id number] [facility] 2020-06-03 10:00:00 2020-06-03 10:00:00 Outpatient R MICHELINE MIXON [facility] [id number] [facility] 2020-06-02 00:00:00 2020-06-02 00:00:00 Patient Secure Msg Ankit Diazriel Young [facility] 1.2.840.114 350.1.13.10 4.2.7.2.686 [id number] [facility] 2020-05-31 00:00:00 2020-05-31 00:00:00 Telephone Micheline Mixon [facility] 1.2.840.114 350.1.13.10 4.2.7.2.686 [id number] [facility] 2020-05-31 00:00:00 2020-05-31 00:00:00 Telephone Pcp, Patient Does Not Have A [facility] 1.2.840.114 350.1.13.10 4.2.7.2.686 [id number] [facility] 2020-05-28 08:52:00 2020-05-28 12:40:00 Hospital Encounter Norbert Diaz [facility] 1.2.840.114 350.1.13.10 4.2.7.2.686 [id number] [facility] 2020-05-28 00:00:00 2020-05-28 00:00:00 Orders Only Doctor Unassigned, [place] [facility] 1.2.840.114 350.1.13.10 4.2.7.2.686 [id number] [facility] 2020-05-25 08:25:23 2020-05-25 08:40:23 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 Gordy Corbett [facility] 1.2.840.114 350.1.13.10 4.2.7.2.686 [id number] [facility] 2020-05-25 08:30:00 2020-05-25 08:30:00 Outpatient R GORDY CORBETT [facility] [id number] [facility] 2020-05-24 08:26:48 2020-05-24 08:41:48 Laboratory Only Only, Pcp Test Norbert Diaz [facility] 1.2.840.114 350.1.13.10 4.2.7.2.686 [id number] [facility] 2020-05-24 08:30:00 2020-05-24 08:30:00 Outpatient NORBERT MARSH GABRIEL [facility] [id number] [facility] 2020-05-17 00:00:00 2020-05-17 00:00:00 Patient Secure Msg Emeli [facility] PRIMARY CARE PAVILLION 1.2.840.114 350.1.13.10 4.2.7.2.686 [id number] [facility] 2020-05-14 13:06:12 2020-05-14 13:21:12 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840.114 350.1.13.10 4.2.7.2.686 [id number] [facility] 2020-05-13 10:30:00 2020-05-13 10:30:00 Outpatient R MICHELINE MIXON [facility] [id number] [facility] 2020-05-13 00:00:00 2020-05-13 00:00:00 Orders Only Doctor Unassigned, [place] [facility] 1.2.840.114 350.1.13.10 4.2.7.2.686 [id number] [facility] 2020-05-10 00:00:00 2020-05-10 00:00:00 Patient Secure Msg Doctor Unassigned, [place] [facility] 1.2.840.114 350.1.13.10 4.2.7.2.686 [id number] [facility] 2020-05-10 00:00:00 2020-05-10 00:00:00 Letter (Out) Norma Parker [facility] 1.2.840.114 350.1.13.10 4.2.7.2.686 [id number] [facility] 2020-05-09 10:57:08 2020-05-09 11:59:21 Urgent Care Samina Booker, Attending [facility] 1.2.840.114 350.1.13.10 4.2.7.2.686 [id number] [facility] 2020-05-09 11:00:00 2020-05-09 11:00:00 Outpatient R UNKNOWN, ATTENDING [facility] [id number] [facility] 2020-02-09 00:00:00 2020-02-09 00:00:00 Odilia Linn [facility] 1.2.840.114 350.1.13.10 4.2.7.2.686 [id number] [facility] 2020-01-27 13:30:00 2020-01-27 13:30:00 Outpatient SKYLER DOUGHERTY HOWARD [facility] [id number] [facility] 2019-10-23 00:00:00 2019-10-23 00:00:00 Outpatient SKYLER DOUGHERTY [facility] [id number] [facility] 2019-10-10 00:00:00 2019-10-10 00:00:00 Telephone Skyler Ferrari [facility] 1.0.114 350.1.13.10 4.2.7.2.686 [id number] [facility] 2019-10-10 00:00:00 2019-10-10 00:00:00 Patient Secure Msg Doctor Unassigned, [place] [facility] 1..114 350.1.13.10 4.2.7.2.686 [id number] [facility] 2019-10-09 00:00:00 2019-10-09 00:00:00 Telephone Skyler Ferrari [facility] 1..114 350.1.13.10 4.2.7.2.686 [id number] [facility] 2019-09-16 17:21:41 2019-09-16 17:51:06 Office Visit Odilia Mejia [facility] 1.114 350.1.13.10 4.2.7.2.686 [id number] [facility] 2019-09-16 17:20:00 2019-09-16 17:51:06 Outpatient ODILIA SCHILLING [facility] [id number] [facility] 2019-08-26 10:42:50 2019-08-26 13:40:32 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, [facility] Stew Elaina Magallanes [facility] 1..114 350.1.13.10 4.2.7.2.686 [id number] [facility] 2019-07-17 11:47:16 2019-07-17 16:16:00 Emergency X APPLE BROWN [facility] [id number] [facility] 2019-04-08 10:55:00 2019-04-08 10:55:00 Outpatient Bill Luque [facility]W [id number] [facility] 2019-03-17 11:00:00 2019-03-17 11:00:00 Outpatient Walk-In, Ludmila CHW CHW [id number] [facility] 2019-03-13 16:00:00 2019-03-13 16:00:00 Outpatient Kami Medina W CHW [id number] [facility] 2019-03-01 10:49:00 2019-03-01 10:49:00 Outpatient Bill Luque W CHW [id number] [facility] 2019-02-25 07:47:00 2019-02-25 07:47:00 Outpatient Bill Luque CHW [id number] [facility] 2019-02-24 12:40:00 2019-02-24 12:40:00 Outpatient Bill Luque W CHW [id number] [facility] 2019-02-20 11:19:00 2019-02-20 11:19:00 Outpatient Bill Luque W CHW [id number] [facility] 2019-02-19 15:20:00 2019-02-19 15:20:00 Outpatient Bill Luque W CHW [id number] [facility] 2019-02-06 15:50:00 2019-02-06 15:50:00 Outpatient Radha Wilson Harish CHW [id number] [facility] 2019-01-07 16:14:00 2019-01-07 16:14:00 Outpatient Radha Wilson CHW [id number] [facility] 2018-12-09 09:46:00 2018-12-09 09:46:00 Outpatient Radha Wilson CHW [id number] [facility] 2018-11-19 08:00:00 2018-11-19 08:00:00 [id number] 2018-10-29 16:00:00 2018-10-29 16:00:00 [facility] [id number] 2018-10-14 14:20:00 2018-10-14 14:20:00 Outpatient [facility] [id number] [facility] 2018-10-12 09:20:00 2018-10-12 09:20:00 Outpatient [facility] [id number] [facility] 2018-10-09 15:00:00 2018-10-09 15:00:00 Outpatient WilsonRadha [facility] [id number] [facility] 2018-08-28 10:37:00 2018-08-28 10:37:00 Outpatient Wilson, Radha [facility] [id number] [facility] 2018-08-26 11:40:00 2018-08-26 11:40:00 [facility] [id number] [facility] 2018-08-16 08:18:00 2018-08-16 08:18:00 Outpatient Wilson, Radha [facility] [id number] [facility] 2018-08-09 10:39:00 2018-08-09 10:39:00 Outpatient Wilson, Radha [facility] [id number] [facility] 2018-08-08 16:20:00 2018-08-08 16:20:00 Outpatient Wilson, Radha [facility] [id number] [facility] Results Test Description Test Time Test Comments Results Result Co mments Source [facility] Hemoglobin A1C [id number] 20:36:00* Test Item Value Reference Range Interpretation Comme nts POCT HBA1C (test code = 4548-4) 6.7 % 4-6 A Lab Interpretation (test cod e = 95504-8) [facility]2023-09-12 21:04:40 These images do not require a Radiology diagnostic report.[facility] GLUCOSE (AUTOMATED)2023-09-12 20:25:01* Test Item Value Reference Range Interpretation Comme nts POCT GLU (test code = 6762965043) 134 mg/dL 70-110 H Lab Interpretation (test cod e = 60173-3) Abnormal [facility] GLUCOSE (AUTOMATED)2023-09-12 20:25:01* Test Item Value Reference Range Interpretation Comme nts POCT GLU (test code = 7917798378) 134 mg/dL 70-110 H Lab Interpretation (test cod e = 78178-5) Abnormal [facility] [id number] 20:06:00* Test Item Value Reference Range Interpretation Comme nts POCT PREG (test code = 1605) Negative On board controls acceptable with C Line (test code = 3574) Yes POCT PREG LOT # (test code = 3575) POCT PREG TEST DATE ( test code = 3576) [facility] [id number] 20:06:00* Test Item Value Reference Range Interpretation Comme nts POCT PREG (test code = 1605) Negative On board controls acceptable with C Line (test code = 3574) Yes POCT PREG LOT # (test code = 3575) POCT PREG TEST DATE ( test code = 3576) [facility] GLUCOSE (AUTOMATED)2023-05-11 18:13:39* Test Item Value Reference Range Interpretation Comme nts POCT GLU (test code = 9193747596) 144 mg/dL 70-110 H Lab Interpretation (test cod e = 72016-8) Abnormal [facility] GLUCOSE (AUTOMATED)2023-05-11 18:13:39* Test Item Value Reference Range Interpretation Comme nts POCT GLU (test code = 3092549025) 144 mg/dL 70-110 H Lab Interpretation (test cod e = 05482-0) [facility]/REFL TITER AND$CONFIRMATORY [id number] 17:00:00* Test Item Value Reference Range Interpretation Comme nts RPR (DX) W/REFL TITER AND$CONFIRMATOR Y TESTING-Q (test code = 71730-8) NON-REACTIVE NON-REACTI REPORT COMMENT:FASTING:MAHESH Bellamy WILLIAMS (test code = WILLIAMS) PERFORMED BY [employer] [facility]; [address] [place] [address]; SAMAN JOYNER MD,PHD. [facility] [id number] 18:58:00* Test Item Value Reference Range Interpretation Comme nts POCT PREG (test code = 1605) Negative On board controls acceptable with C Line (test code = 3574) Yes POCT PREG LOT # (test code = 3575) POCT PREG TEST DATE ( test code = 3576) [facility] [id number] 18:58:00* Test Item Value Reference Range Interpretation Comme nts POCT PREG (test code = 1605) Negative On board controls acceptable with C Line (test code = 3574) Yes POCT PREG LOT # (test code = 3575) POCT PREG TEST DATE ( test code = 3576) [facility] [id number] 17:26:34* Test Item Value Reference Range Interpretation Comme nts Case Report (test code = [id number]) Surgical Pathology ?Case: [id number] ? Authorizing Provider: ?Norbert Diaz MD ?Collected: ? 04/09/2023 0905 ?Ordering Location: ? ? [facility] ? ? Received: ?04/09/2023 1134 ? Center ? Pathologist: ? Karime Rubio MD ? Specimens: ? A) - STOMACH, 1. GASTRIC BX EVAL H. PYLORI ? B) - ESOPHAGUS, 2. DISTAL ESOPHAGEAL BX EVAL EOE ? C) - ESOPHAGUS, 3. PROXIMAL ESOPHAGEAL BX EVAL EOE ? Final Diagnosis (test code = [id number]) c2nycBFuGURsf2lkFYXljJ FuZzEwMzNcZnRuYmpcdWMx IHtccnRmMVxhbnNpXGRlZm kyuzjqYBEsDIF0cpDhBWHk JRB1UUM9XmDeQYMdFlDvZH BvDUMkr5jmj1WkqRDdmCZl YBjhiBBoyjCoyw30dQP5iK 66SX6oLNPpOwA6NRWwknX3 Hpn0IDOsCGUmzLGsY077d9 anm6kqaaHvkRT1sOnuLDFz pwuzMzZ7NJddWESbpasgHC w9UQprOEChzFS4SUQlyUXw E7OxCUMyVK4svty9WSJ6LG wsFKSsUzG7ZWCwrVYmXKTn mEqdMLsiw577MCK7GnVvQV EpfoKvkQeqwV9gOsZbAKpy EWPrXO9yZ6LHSKWTDZjpEe lPUFNZOlxwYXJcZmkyODMg MXFMCEYIWkmNKT5LF54PQR ADRYPLWZ7DIDHALYbOTY2H GEFtU6eYKhuMMBVbihJcUV 5PIElOVEVTVElOQUwgTUVU QVBMQVNJQSBJREVOVElGSU VEXHBhclxmaTAgICAgICAt WC8VZBoqWBCXYD0WLTTGMv dBTklTTVMgSURFTlRJRklF RCBccGFyXGZzMjJccGFyXG QpGsWdHj9jGLYXYKuBK8NJ ENHHLQRMZLipFEVHV3WSUV pccGFyICAgICAtIFNRVUFN U2IAXVKMPDLPJNwFQB4iY3 iZQIPKWoGYRGVRE5rTT2kX CJroR1zDSztVALfnLACwKJ XxYE3bHg7vCQDUDREIU8Xh R2WfSL4HEF7RQLvWMBfJPT IYM8GGHFdDZWdRWEtWGT3U SUZJRUQgXHBhclxmczIyXH FbccvqonKjQKUeMDWRR4KW QUdVUywgUFJPWElNQUwsIE SOS6CAUTzgbIWqYYVkQKZw FXXHXEKCJ0QCITMDJBXSJQ tCOR2jD1bHYRPRPcDJEYUQ R5oMQ7sHRJxyO5tGKqzONK dcYBKoSIJyJT5aOa3zSFSD POONJ8HfU1OqYS4QUP1OLG vMFLcMIEQNQ0PDOBaEMRtG UGnBNU9BWGOPSNQoJHItdc hxEPSbGQYvip74RJN5WsSs r0H1BDNmCuYtXLTcTT8ltJ nsDPBlMH3cGCFeQ4vdwQ4u ldo0SvKqDZBjCeZ0EJSgxy D3Cbf2OHEsAZlrp6bmz2Qr Q4YqaXCqlJl0k7gsCVIgCf Q0fZNhPMkvU5njcfEuyOYk LXGiVKt7kAlqZsYqDRLgn8 lzcyBcZmNoYXJzZXQwIENh rBwfnfq8rR31MLOymM6wlN YgMObnhhLdKyQ3WQvhCBKq TkH5XMOacJGfTZLjJ8omDB QwXGdyZWVuMFxibHVlMCA7 tNnmd7O4fUTqsRVlgKbeYb FnUgQcIPTDg7CxXBx7rTaz V7ThNRMvDyL4sSSgMIKzWK cmZMBnYCLhduK2pZ04UUpn vbF1nMUup1Dqc11wn428yJ 2kpTScZQW6KQYqKIUscRGr IAXyULG3HMKcmWMjQ1zoHG XjJW2rteoqFFhzYBkgHOFm lOE0UBHfiBHaP5LjRCWgTA xqYSIlkdd7FsTkXh4ojCMh hBxmTLpyx7wiv2enyTGuCc o7TBJjJkGtYqluGWrmq8Qt t9omMZRntc2hKDQ6fNVykQ kee7A5rVRuQIRvxJWiypDt MNMySeE6MRkpHB6vug64BZ CrLHY6bx2dsGAbjUksdpKi hHQxKZktO0NwTHMrj280HY OcT8UsNONpt3E8cuXzTjMb AGCxhAU3odF1DNRjFQh7kM YddcT8bkJmfIHaO1wllL6u EGTaCW9qcptjw2bfMOauUN lyXLHcbJA0ypR6UQXesMLc B6KavS9xBHAdAByvEXIulb v5KjPlOx5miWFfaSfoUEwq YmtwYWdlXHBnbmNvbnRccG duZGVjXHBsYWluXHBsYWlu XGYwXGZzMjRccWxccGxhaW 4yQgWtWcUkKVgoTM6bCJPk H2lrwEUrUCZxANKjC6pbSm TjvK1hsZcePFluQcIqStIi MFxwYXIgSSBoYXZlIHBlcn BvjpPouNlipzF2aJB3NZEe XPutTKHwMQXaeORsiq2hjV bvKFCpVY1vFYJekaGdDQir bVprVRgnRIB1SUZwnCXlfC MgbWFkZSBieSByZXNpZGVu oPEoHOPvwGroo2Zer8OnvS K6tV0cx6ajd8VrWMHduRA8 YR23agG5lE5rSQUlBA7nEW NhZM4zrCYhyBYhHOQus70f dGhpcyByZXBvcnQuXHBsYW luXGYyXGZzMjhcbGFuZzEw MzNcaGljaFxmMlxkYmNoXG FfSAkfB9wnKeLrBbVvTUoo KUL3mSxqsbAbHZztz1IjM8 YyMjAwMFxhbnNpXGRlZmxh ukscJRNnHFJ1glPbFJQfKL klFOLbTYbdYd7prZQzdPty PxLpADMsw9btxoJORSjcHl HnB875VUFtVHzfl2rae3Hf OOTuhYOdj2H7ZBGWocyphK p7qNrbA80fi2Z3PcbjQ7um XMBvFZVcR4LnYR6iUIExOr a9CYA0ECH2OEYnQNDtW1Pf MY8vOJTkjTVuPKc0e3ijlE otQYBeJGZ4x0kkTZtedxB3 NN6qxm4ypHj7w8oqmzYmZY BoPSVpzTEXTQCoE1ZxkCgv Mb0ziXp0hUhfUuyrIHL7Ud f9WO4uru23jsj2oPysDEBw fxkgDmH7SVyfJMOthhccUG x6KFynBXHxwMZ1CROxsSXo Y0GgXOTyGN6vycd7NGJ6YE alEDVnFvW5ATQhoKAfNSMw yPklAPdrc766DGY0BcZlCM 1tQ6Zuq7K7cJ0acWAvVJFh iCUpNzSzSUFruc1bcCJqBW piu8AhH01gzWQ1VAfdt9bs EL3hXdN5yhLzTYfgi6btcU 7xOsP7TQotRJ2nim42AYEs FIY1rv4awEZvwQwpbtOhdD CsNXxsE9IzZJMln835MJVe C2GbPQYjt3U8caReGzGoEQ FaaTZ3bvI3UVRbICz1pTRm hqM7ptIbmDAyL1mxmO2vIC QbHR1ixtxgm9dyKMsdQClf LUNiqUQ2byU9SFCrbQQfE7 WuhM4gFMRnFChmQRPmqiq7 NmDqRg0ysWKbmUifXXlxCv twYWdlXHBnbmNvbnRccGdu ZGVjXHBsYWluXHBsYWluXG NpVYOfAsVdaQWjZSwfe6Pf tvMufWikSJLbXTu9ysYtrs uakXm0fDDkwGbcCGMuoVlm oU7tYoIzDiIgPNbjWS7sON JzA5nmgFZeDFFlVEWvZ0ji TbLxxT9zzVooKDbtSlTzNq MyMFxsdHJjaFxwYXIgSSBo YXZlIHBlcnNvbmFsbHkgcm Q9zYB5THUwKHmtYNAsHRAo rLMzoi6teTngCPSkAR2rKW FncmVlIHdpdGggYWxsIHN0 YXRlbWVudHMgbWFkZSBieS ByZXNpZGVudHMsIGZlbGxv i0Fit0DsfNF1qS8co0tkk4 TxFLRqyJI2BQ63rzD9aL8g EZUiDD1dPRPrQF6fpIMpaQ RmYLBmi73hfBoelfHcDFNv cnQuXHBsYWluXGYxXGZzMj BcbGFuZzEwMzNcaGljaFxm WHbsNwFqEAFjRVpfO2orLu EdJ8ZhUBPsPcSmrLAhLORd jyxcVKMxt8PdWqMur8bkQT cet4shrGq7IBhvpNVfzpxl OKifgmV9PIRtSJieCANeOX ZzMTRcbGFuZzEwMzNcaGlj aFxmMVxkYmNoXGYxXGxvY2 jzGhAyU6BiSKRwXGVjeSEv U8cnCLV5sP0zm6kdh1RxpI TtHtMox7clolRvDVCokAGn siCeyVNfZZIcy8NjPGLuLH LpLCJTFg5VIDNcqJGmM7f0 iHQUYV0opUFcGOKbKDLoQ1 KcBrMObsGox3F3IOBpoVLs HGEPZMEhfEYyZ3w2dXxuMH saRrt3SdNvnOmhnH8dLdDb LbEpGOnsOZ7qLITxX3iyeB RhMTReJZObI2kiJiHckO1t aFxmMVxjZjJcZnMyMFxsdH DpcDukTKU7pC== Clinical Information (test code = [id number]) José Luke is a 38 year old female1. GASTRIC BX EVAL H. PYLORI2. DISTAL ESOPHAGEAL BX EVAL EOE3. PROXIMAL ESOPHAGEAL BX EVAL EOE Gross Description (test code = 5716845032) c7efpYCtKEYvuUFWQZZ6NQ ZgHM6quAievNg4lQqaSOAb fhC0qFCtCWjvp7cmXOY7a8 zlniXDHnncOFXxUO7pAZel JOJaBA6fShMyFEAkFmTcLG BhcGVydzEyMjQwXHBhcGVy jZF7YFHxHG0ntgcxLFdpEC bpAWXfhkH7BEMymWJyF0Qs TIHqOH0wbnrrNGC8EPHRWl dlSl0ewAQxqDvlEaRoDsWv YXJzZXQwXGZuaWwgQXJpYW y7yU8VSjzzKAS5KXKBDack TjaimCvvg0HjiMCeBSLfBZ xcaWQgNTEwMDAgXFxkYiBP XrUbJzK2AJPeXNdrWxD4WR n9IUMSELHtOvm3BRL8DVG5 LBh9EFFjZD3qVJookBOwQG jgInfxBZciN047ELowYTHb U2BpU9RpUQbsYtLkLUqpAY AeWJYnAPqjFNMeN1JGELXz IXv2Lon2PwGqADx3NEkgP0 BDAHEePBBeAPG6AvN5ZdD3 PCg0SFMZYq5xJKh1VOJ6Ij I6UnX2GSswHhNeYALuFpMn NZSlIEOhTJzpcEQqOQ2srQ ucWDFgIJ3QLSYdRQkfPSCc GxEqI6BTI8mLKJ0eUMymmX JjaFxmczIyXHBhciANClxw AJRgEL5CCICtBFfbAEx5lt AjXXQwVwDrXZWvN42lg6OI f7JtBA8SROi6ilHyqmopuP 0bXFBwrmZjv6KdKRimsGxm JEQvYuFsCWwZfMUqyO7kvh YGXIieTEQbY7JcmjTkBEqi RHYvqj4oxEwtSToeOhTbOH Znf0j3oJK5sNHcnGV7lHWu fHxjLA8jkNFxENVQOX82cR AslgEtZ9OmzJRaHnLLHTMg mwXjDLvgZWG2wO3wySQfCQ 2gKTNspiRqs5BaGV1sIKSk uMJbKIVrvhojmUBfNDf5tR BfSPDnXcMvlWxgs3NqQNBc UGcyTY23neMpUA7bZYalXM 3tEYviVN7iRZWrRQQySZQl LjYgeCAwLjIgeCAwLjEgY2 5oRqGLcWFqu5HxC8vdYG1d aXMgZmlsdGVyZWQgdGhyb3 LalWZpCUSoj2WqoFSsJAfj EM3pOGY9Gp8asGVzZZFzqi F9i8FpEPjbSDNmBm5YUTQw eHARMOR7QF2aHAlkYCDpZ6 OdP3KgmmA3NZVjhhFNRkmb GerzzFzcw2FitQYtKDKsYC xcaWQgNTEwMDIgXFxkYiBP MhBkZnV0EKYiHWmmXmL3MW j2JXAUKgLdEfYjQyD6GfBg EXljSZj9MTu8SQpSNwQyQR n5Hng9QzF8SGJ4EPF9YGcf yEMzWFumo8LqZcKrTREoYD etvoE8MHYhbbRtm6IxNKAb GGEiS7jxEmNcGOKZAtsffa IwIFNQRUNJTUVOIEJcZnMy MlxwYXIgDQpccGFyZCANCl xwbGFpblxsdHJjaFxmczIy AVXifWWCJZW3QP5cZJLWTe whpXYkRKQssIhxIZiwiR5g GGYnKsHfCVSuG1igZyGsZV JsOwEyDWDgO9lwQWQlXN9P P7XoS1dpAH3gIpEadxDkBT RsfAUmDCCwxqQoo9FkDGif biBsYWJlbGVkIHdpdGggdG omBGOaeAlfipHzntRgLN1k VMISELNrhV7gYANtVzGnm9 WadUAns19krBVeRNKcJWHT NEL3LIxpUJ7FIlQutyMaD7 1vi0nocADik7HbpAOwqCli wNErpHUeCZTbkraof9WxkZ BlLW8gdJFlLO55VPagitWr nIdbroKbk7F8HOUsh6S1LA BmcmFnbWVudHMgKHJhbmdp bmcgZnJvbSBsZXNzIHRoYW 2nWY6pCLRfIDSlIoXvbDWd kaXtbrBsaUFwrVIfyK2vkh Vbi31bNZWhZUD4HRPyIQM9 OKJkREHqkLScxaAdM9wjHP csjMKcEyRXiXNpd1XmV9kl ZJ6xqSVvJgwrjMDmXFFsrO kzp7GxpOJmHDWws2NdxCNu JYarOK6rSRM8Qc1lhAMeMO VqmtG0r7VrRGuwSPSpIs4B KROiwDYKLJX5HT6fBAmeBA OhW8StJ2HkzuP5HSImigHG CnrlUccqoHyia5NmlXZqHP NnIFxcaWQgNTEwMDIgXFxk HwLJVdYnFzB4RVDmPXsxUt V7CUy1CCKSWtZjHfSbVdU5 PnQwPyUvDUm5JQt7XZqUIa YbUEo1Evf0ZHBdATJ5YBS5 QQlkcLLdQJhsd8DvCaQbLM NbAYkftiI9MMStyiIaj5Aj APUkBZTkD2kySfAeJKNEZw xmczIwIFNQRUNJTUVOIENc ZnMyMlxwYXIgDQpccGFyZC ANClxwbGFpblxsdHJjaFxm ovZrQANtcIRQSQN1IT6rZX ANClxsdHJwYXJcbGluMFxy bV7fQYBjDjClFTGeE9pjXx GqMU9AJ2GyW6laQT3dPwMn cyByZWNlaXZlZCBpbiBmb3 JtYWxpbiBsYWJlbGVkIHdp dGggdGhlIHBhdGllbnQncy QoGG6mUOXVGIUzmS7vHIRa WmOqj2lqaYXwTMSpp1RhHP ugFAeiPfxyJXTaaNBLC8Jo NWYzLQOgr21myZJ6vlHiDc VpTERqxz9ckY4vYUSloYo2 lqHwz7h0B2UbxKZpdeBqK2 SrAZOwp94jqID8hVKatLDx XxCnP44cjvDgMZfzYR7uoK 2vRDMrk52mTA1fPXEpNCPf MyBjbSBpbiBncmVhdGVzdC TlpM5kowBdc11gHGCqWVF3 QHUdAQC6KOIkVUHawKDren SmM0zgJEnsoSXiAbBZqOPy h8YmD5yyCE7fuJKlMjariU MsIEDvlQtas6YgsRCvVOEy z9AflCChZNvsFM6fTWX0Na 9evTReDPHgqtY7w8KsMVfl SANaHwhfNHIlIPtpq8UfQI QfjHQIv4SfYK4YIIVpoeTZ QsklRFNjILDobRBTn5QrLJ NAVp1ynmjgXRCbDWO7b9Zw ECBZJIcDA1ZZRW5XWGWjlI BSQQY5NH8tLPlkSOFvW6De U0FrnxW7h2bfsJncn3GcyV ElIF6bgDIdKD6EMOTrwnVa DQp9 Disclaimer (test code = [id number]) m7likCDtFQDib3fdUNHdaG FuZzEwMzNcZnRuYmpcdWMx GSinnlGcNCjab1FmJ1LzBr AwMFxhbnNpXGRlZmxhbmcx SPUmCQA4rpPoDXXaYArpWP XqUCofCb9faSHenHqwKaVn XXScs3wvqdNJITtjObTaE4 10YBElKKybs2jwm3BlVFFe uXLns1C9RLNDubbzyRp8kK cyU27mo4B4HsoxT5zmHAYe MVWsJ6GrHB2yOCIbJwt0UD A3TYB1MPZyOCDrL3LdKI4p ALWkuKXqQMa9o3hucQruIN MbXGG7k0jcSAgsayWtZH4l af8hvJs1x4lbzzPtRWIiNW YjySEVVAIcX6BylBtxGl5b mUj9eMtqAonlUQK0Wby1TO 6dqb47hwx1sUkdBWArvyyp MbD3GAisNFPdkjrbSMo4QH mdAYUqeAT0NLGjaZHdZ1Nb VSEuJR5fzwg5REA5ZLljVS WjNlE8ABTluFPmDMHgyZpq SOalm228UIY7HzMnQT0vM6 Snq7U0qA6jwWMpBKRszISf VwXvTBDyqx3otYHjEWzio0 ZvZIL8azT7wATryIGuZNAf QW12Lweth2LxOhsco3IfP8 0ezBM5EEvqn8xmVG7jCrP9 zxRbJAhjg5spfC6eCiP7NW phTG7lFB3mBCXhgQ9ufcun XHBnYnJkcmhlYWRccGdicm XrFc1onNbjWUC3HNlzN3kd gK8hTyE6EVwyS6nnnX1xZD u0QZdxrDM6AUGyjO2fFJ2x gchcw1lxCBydXTdcIBIzap J8jrT6PMQitLXjE0BntK2r LKWnEQ5cmgste5bkCSW9VK zwHUWiQOG4OaVsMMCza7Ax izi1CwWsn1ZfuVEkJPoeT2 0hj550LAZwfpJbH5rbrATk zflxeFVjteikNJzuauS4RS UidgKld8UfLKKqWIM7LKfj PRrieHTvAJYaaElbk1ytV5 RscGFyXHBsYWluXGYxXGZz MjBcbGFuZzEwMzNcaGljaF fcTSucNeXiTAJxIElhC9bm IlYmK6RxIXUlPtMzbERuM8 ggVGhpcyByZXBvcnQgbWF5 LAsqG2z0AYVzwkXkoDq2hv NtIuHhQIIsUXG5SDnaqGBt CZFft6EyufqyyAKaKw5mfZ LzYBEjqV1aUDFnBCQaAOvw OF0ieUk1WOVJhFIurIIyXm NIKYBaRS43khNaFKKNxmng t4K6YWukCQGfl4GtxRBqZ4 asy5TpFMJer86xON0on0H0 z3ciOGW9WY9jd5ObTJLiaU YtvSFhREXxu9Tamiygs0Jj HRMtycCfy7GcMKKdgoFfsY SeAOUizaJofb1dbnKeVCYs UAGbY1RozicrhDbginOeIG Hcue2dncEvAPC1QWJEANPr GKNwg0BdrZ8sjYJEOEA4fL Ezjo1fmxUCxNIySBSuaf11 QBTpUY7uG3qnFTYiSTFxha XijLArm6ZgOVUznFH5qWQz RB5KUuLQc06hVVKpHQOPhk TkTWTjpNxacTP0owQ5bS1v IChGREEpLlx+IFRoZSBGRE RiLF6owxKzf0BjxqPipLrz KTHqiBBpb2AxwWTxi6KsvM syg9YwdVCocBHtVC9sYHIy clxwYXIgVVRNQiBMYWJvcm Z3u2UbWYDeANVhCUA8qQsa dll3ZPXjvK9kNKXcU4psth bwKOlmLUTvm9BbpR4wwWVZ yQTha7NpzPPlfOHVpHGqXX 0uxpGrUUuHTNgJTIV5nkAc JUSsb3QgRResS5mqG44jsL kiuFf3cCI3JMK9bZ8lRnj+ IFxwYXJccGFyIEFwcHJvcH CeSODhbXwwqhRtH2LizuLp yZ0ckREvewRgLM2wPY4oV6 X3tNJdWKRpjyIoc5obMOzp dmUgYmVlbiByZXZpZXdlZC Ney7KwVNeoEWE7RUkbrpXj bmNsdWRpbmcgSCZFLCBTcG MapOTtAWT2QVzwbcRwpmQs RK5kuC9okCbmpP8gcKSavA R4fclrQYDyHVUcxTvpVQKq DW2goWxxxV9cFdMoKyGxAF dbBL6aHBRqX3hcsNVjBYAx TARcW7cyDjXsrR5beIddHX xjZjJcZnMyMFxwYXJccGFy XHBsYWluXGYxXGZzMjBcbG FuZzEwMzNcaGljaFxmMVxk XxGyZBTrDDteY8rbQgKbX5 EvUBJlYfWdnGZrV8tpANld ESM5WEBzEE3ffKHdBO70xG Syh4jnLBblxMjxtg0dA43d zEOlVJakyBloFPJnf10is8 UbJMIokqBhbz1eZTTgbnT4 fC9jTERxbOjtEDJtsWKhLF Tto2HvBAzhyORdpoAcOUek ZLTxIFArpIYkyuQ1cyJmnp FjesLbFSJicDzwVSDed4El RJWdCYgfk5Vpga0bqGWbKG RqudSBjWtzeUXfgR1fD7Vg ZKWzCQTzki2nNLQymF9rQL fun4FrjxwyVUOsBQYfETJg gtXexw4kLIYmxEIGEC2HRL nkjPAmg4AxbwZfN3mCWGO8 NUQwNjYwMjgxKSBleGNlcH UoAVFgnh06BLQmsR6ysPel IOAjsQ6etW1mvGuugZ6nRw ZsRzAlANweBR4rRSQkY7fy pDSvWNGbPTEkY9hkYsTsmG 9jaFxmMVxjZjJcZnMyMFxw YXJ9fQ== Embedded Images (test code = [id number]) [facility] GLUCOSE (AUTOMATED)2023-04-09 13:04:56* Test Item Value Reference Range Interpretation Comme nts POCT GLU (test code = 6106985616) 240 mg/dL 70-110 H Lab Interpretation (test cod e = 40951-6) Abnormal [facility] GLUCOSE (AUTOMATED)2023-04-09 13:04:56* Test Item Value Reference Range Interpretation Comme nts POCT GLU (test code = 9244824271) 240 mg/dL 70-110 H Lab Interpretation (test cod e = 22445-5) Abnormal [facility] [id number] 00:00:00* Test Item Value Reference Range Interpretation Comme nts POCT PREG (test code = 1605) Negative On board controls acceptable with C Line (test code = 3574) Yes POCT PREG LOT # (test code = 3575) POCT PREG TEST DATE ( test code = 3576) [id number]:00:00* Test Item Value Reference Range Interpretation Comme nts POCT PREG (test code = 1605) Negative On board controls acceptable with C Line (test code = 3574) Yes POCT PREG LOT # (test code = 3575) POCT PREG TEST DATE ( test code = 3576) [facility] [id number] 05:21:47 * Test Item Value Reference Range Interpretation Comments Anticardiolipin Antibody IgG (test code = 7562945683) 11.9 See_Comment H [Automated message] The system which generated this result transmitted reference range: 0.0 - 10.0 GPL. The reference range was not used to interpret this result as normal/abnormal . Anticardiolipin Antibody IgM (test code = 9909944780) 1.8 See_Comment [Automated message] The system which generated this result transmitted reference range: 0.0 - 10.0 MPL. The reference range was not used to interpret this result as normal/abnormal . Anticardiolipin Antibody IgA (test code = 0897282633) 1.5 See_Comment [Automated message] The system which [...] 4: 2210-4 Lab Interpretation (test code = 21565-8) [facility]normal [facility] [id number] 05:21:47 * Test Item Value Reference Range Interpretation Comments Anticardiolipin Antibody IgG (test code = 6073006559) 11.9 See_Comment H [Automated message] The system which generated this result transmitted reference range: 0.0 - 10.0 GPL. The reference range was not used to interpret this result as normal/abnormal . Anticardiolipin Antibody IgM (test code = 3339355646) 1.8 See_Comment [Automated message] The system which generated this result transmitted reference range: 0.0 - 10.0 MPL. The reference range was not used to interpret this result as normal/abnormal . Anticardiolipin Antibody IgA (test code = 8168228170) 1.5 See_Comment [Automated message] The system which [...] 4: 2210-4 Lab Interpretation (test code = 56524-8) [facility]normal [facility] GLYCOPROTEIN I [id number] 05:21:31* Test Item Value Reference Range Interpretation Comments Anti-B2 Glycoprotein 1 IgG (test code = 2122566567) 2.8 See_Comment [Automated message] The system which generated this result transmitted reference range: 0.0 - 20.0 SGU. The reference range was not used to interpret this result as normal/abnormal. Anti-B2 Glycoprotein 1 IgM (test code = 0332225225) 0.6 See_Comment [Automated message] The system which generated this result transmitted reference range: 0.0 - 20.0 SMU. The reference range was not used to interpret this result as normal/abnormal. Anti-B2 Glycoprotein 1 IgA (test code = 7293149267) 2.6 See_Comment [Automated message] The system which [...] losses and/or thrombocytopenia. TEST PERFORMED AT:[facility]. [address] [place] [address], 4.[facility] [place] [address] Lab Interpretation (test code = 05277-4) Normal [facility] GLYCOPROTEIN I [id number] 05:21:31* Test Item Value Reference Range Interpretation Comments Anti-B2 Glycoprotein 1 IgG (test code = 2110901534) 2.8 See_Comment [Automated message] The system which generated this result transmitted reference range: 0.0 - 20.0 SGU. The reference range was not used to interpret this result as normal/abnormal. Anti-B2 Glycoprotein 1 IgM (test code = 4318152129) 0.6 See_Comment [Automated message] The system which generated this result transmitted reference range: 0.0 - 20.0 SMU. The reference range was not used to interpret this result as normal/abnormal. Anti-B2 Glycoprotein 1 IgA (test code = 8919417361) 2.6 See_Comment [Automated message] The system which [...] losses and/or thrombocytopenia. TEST PERFORMED AT:[facility]. [id number] [place] [address] [place] [address] Lab Interpretation (test code = 50002-6) Normal [facility] GLUCOSE (AUTOMATED)2022-12-11 15:26:47* Test Item Value Reference Range Interpretation Comme [facility] POCT GLU (test code = 6809286776) 91 mg/dL 70-110 Lab Interpretation (test cod e = 83707-7) Normal [facility] GLUCOSE (AUTOMATED)2022-12-11 15:26:47* Test Item Value Reference Range Interpretation Comme [facility] POCT GLU (test code = 5710987071) 91 mg/dL 70-110 Lab Interpretation (test cod e = 12123-3) Normal [facility] [id number] 14:48:00* Test Item Value Reference Range Interpretation Comme nts POCT PREG (test code = 1605) Negative On board controls acceptable with C Line (test code = 3574) Yes POCT PREG LOT # (test code = 3575) POCT PREG TEST DATE ( test code = 3576) Lab Interpretation (test cod e = 26866-9) Normal [facility] [id number] 14:48:00* Test Item Value Reference Range Interpretation Comme nts POCT PREG (test code = 1605) Negative On board controls acceptable with C Line (test code = 3574) Yes POCT PREG LOT # (test code = 3575) POCT PREG TEST DATE ( test code = 3576) Lab Interpretation (test cod e = 28203-5) Normal [facility] SARS-COV-2 ANTIGEN (BINAX NOW)2022-11-29 17:40:00* Test Item Value Reference Range Interpretation Comme nts POCT SARS-COV-2 ANTIGEN (marie t code = 27940-6) Not Detected Not Detected On board controls acceptable with C Line (test code = 3574) Yes [facility] SARS-COV-2 ANTIGEN (BINAX NOW)2022-11-29 17:40:00* Test Item Value Reference Range Interpretation Comme nts POCT SARS-COV-2 ANTIGEN (marie t code = 16148-9) Not Detected Not Detected On board controls acceptable with C Line (test code = 3574) Yes [facility] MOLECULAR [id number] 17:14:55* Test Item Value Reference Range Interpretation Comme nts POCT Molecular Strep (test c ode = 21994-7) Negative Negative Lab Interpretation (test cod e = 86847-1) Normal [facility] MOLECULAR [id number] 17:14:55* Test Item Value Reference Range Interpretation Comme nts POCT Molecular Strep (test c ode = 80386-1) Negative Negative Lab Interpretation (test cod e = 36472-0) Normal [facility] GLUCOSE (AUTOMATED)2022-09-15 16:40:41* Test Item Value Reference Range Interpretation Comme nts POCT GLU (test code = 6818011434) 133 mg/dL 70-110 H Lab Interpretation (test cod e = 20503-6) Abnormal [facility] GLUCOSE (AUTOMATED)2022-09-15 16:40:41* Test Item Value Reference Range Interpretation Comme nts POCT GLU (test code = 0890351878) 133 mg/dL 70-110 H Lab Interpretation (test cod e = 73179-6) Abnormal [facility] [id number] 16:35:00* Test Item Value Reference Range Interpretation Comme nts POCT PREG (test code = 1605) Negative On board controls acceptable with C Line (test code = 3574) Yes POCT PREG LOT # (test code = 3575) POCT PREG TEST DATE ( test code = 3576) Lab Interpretation (test cod e = 58706-1) [facility] [id number] 16:35:00* Test Item Value Reference Range Interpretation Comme nts POCT PREG (test code = 1605) Negative On board controls acceptable with C Line (test code = 3574) Yes POCT PREG LOT # (test code = 3575) POCT PREG TEST DATE ( test code = 3576) Lab Interpretation (test cod e = 12202-9) Normal [facility]; SPECIAL COAGULATION [id number] 22:21:22Related Clinical History The patient is 37 [...] or complications in women. 09/05/2022 4:[address] [facility] SERVICESRecommendations If clinically indicated, repeat the antiphospholipid antibody panel in 12 weeks, to evaluate the patient for antiphospholipid syndrome. ? 09/05/2022 4:21 [facility] SystemM[facility]. Sendout- [id number] Lupus Anticoagulant Reflexive [id number] 14:40:11* Test Item Value Reference Range Interpretation Comme nts Miscellaneous Test (test code = 6172027421) See scanned report Performing Lab (test code = 2901332411) [facility] [id number] 03:44:30 * Test Item Value Reference Range Interpretation Comments Anticardiolipin Antibody IgG (test code = 2845728943) 20.9 See_Comment H [Automated message] The system which generated this result transmitted reference range: 0.0 - 10.0 GPL. The reference range was not used to interpret this result as normal/abnormal . Anticardiolipin Antibody IgM (test code = 8402124415) 1.5 See_Comment [Automated message] The system which generated this result transmitted reference range: 0.0 - 10.0 MPL. The reference range was not used to interpret this result as normal/abnormal . Anticardiolipin Antibody IgA (test code = 9067886928) 0.1 See_Comment [Automated message] The system which [...] 4: 2210-4 Lab Interpretation (test code = 83825-3) Abnormal [facility] [id number] 03:44:30 * Test Item Value Reference Range Interpretation Comments Anticardiolipin Antibody IgG (test code = 0344106685) See_Comment H [Automated message] The system which generated this result transmitted reference range: 0.0 - 10.0 GPL. The reference range was not used to interpret this result as normal/abnormal . Anticardiolipin Antibody IgM (test code = 7511833519) See_Comment [Automated message] The system which generated this result transmitted reference range: 0.0 - 10.0 MPL. The reference range was not used to interpret this result as normal/abnormal . Anticardiolipin Antibody IgA (test code = 8768862172) See_Comment [Automated message] The system which generated [...] 4: 2210-4 Lab Interpretation (test code = 80391-4) [facility]normal [facility] GLYCOPROTEIN I [id number] 03:40:36* Test Item Value Reference Range Interpretation Comments Anti-B2 Glycoprotein 1 IgG (test code = 5279752631) 3.0 See_Comment [Automated message] The system which generated this result transmitted reference range: 0.0 - 20.0 SGU. The reference range was not used to interpret this result as normal/abnormal. Anti-B2 Glycoprotein 1 IgM (test code = 1444678981) 1.5 See_Comment [Automated message] The system which generated this result transmitted reference range: 0.0 - 20.0 SMU. The reference range was not used to interpret this result as normal/abnormal. Anti-B2 Glycoprotein 1 IgA (test code = 4814554430) 5.1 See_Comment [Automated message] The system which [...] losses and/or thrombocytopenia. TEST PERFORMED AT:[facility]. [address] [place] [address] Lab Interpretation (test code = 21113-0) Normal [facility] I LT5274-54-01 03:40:36* Test Item Value Reference Range Interpretation Comments Anti-B2 Glycoprotein 1 IgG (test code = 5759809963) See_Comment [Automated message] The system which generated this result transmitted reference range: 0.0 - 20.0 SGU. The reference range was not used to interpret this result as normal/abnormal. Anti-B2 Glycoprotein 1 IgM (test code = 0056032322) See_Comment [Automated message] The system which generated this result transmitted reference range: 0.0 - 20.0 SMU. The reference range was not used to interpret this result as normal/abnormal. Anti-B2 Glycoprotein 1 IgA (test code = 6574581831) See_Comment [Automated message] The system which generated [...] losses and/or thrombocytopenia. TEST PERFORMED AT:[facility]. [address] [place] [address].[place] [address] Lab Interpretation (test code = 84956-8) Normal [facility] [id number] 17:19:00* Test Item Value Reference Range Interpretation Comme nts POCT PREG (test code = 1605) Negative On board controls acceptable with C Line (test code = 3574) Yes POCT PREG LOT # (test code = 3575) POCT PREG TEST DATE ( test code = 3576) [facility] [id number] 17:19:00* Test Item Value Reference Range Interpretation Comme nts POCT PREG (test code = 1605) Negative On board controls acceptable with C Line (test code = 3574) Yes POCT PREG LOT # (test code = 3575) POCT PREG TEST DATE ( test code = 3576) [facility] [id number] 20:18:00* Test Item Value Reference Range Interpretation Comme nts POCT PREG (test code = 1605) Negative On board controls acceptable with C Line (test code = 3574) Yes POCT PREG LOT # (test code = 3575) POCT PREG TEST DATE ( test code = 3576) Lab Interpretation (test cod e = 15202-6) Normal [facility] [id number] 20:18:00* Test Item Value Reference Range Interpretation Comme nts POCT PREG (test code = 1605) Negative On board controls acceptable with C Line (test code = 3574) Yes POCT PREG LOT # (test code = 3575) POCT PREG TEST DATE ( test code = 3576) Lab Interpretation (test cod e = 97106-1) Normal [facility] [id number] 17:01:00* Test Item Value Reference Range Interpretation Comme nts POCT PREG (test code = 1605) Negative On board controls acceptable with C Line (test code = 3574) Yes POCT PREG LOT # (test code = 3575) POCT PREG TEST DATE ( test code = 3576) [facility] [id number] 17:01:00* Test Item Value Reference Range Interpretation Comme nts POCT PREG (test code = 1605) Negative On board controls acceptable with C Line (test code = 3574) Yes POCT PREG LOT # (test code = 3575) POCT PREG TEST DATE ( test code = 3576) [facility] History and Physical Notes Date/Time Note Provider Source 2023-04-09 08:44:32 W1M5FcY04UwDcFHz5eK2 EcdWy5UKleNKrOnpmta//c o36z5qdPEPwLhiJsAWw2aI6660-17-26P16:44:32F ormatting of this note is different from the original.Endoscopy H & PAge: 38 year old Sex: female ASA Class: IIIIndication: chronic nausea, heartburn, dysphagia, Marisella Hyon Luke is a 38 year old female [...] N/A 05/28/2020 Surgeon: Norbert Diaz MD; Location: [facility] COLONOSCOPY 05/28/2020 COLPOSCOPY HEMORRHOIDECTOMY N/A 11/14/2021 Surgeon: Azalia Michel MD; Location: [facility] Right 10/18/2020 Surgeon: Curtis Morley MD; Location: [place] OR [facility] No current facility-administered medications for this encounter. 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 Social Determinants of Health Financial Resource [...] 0 min Stress: Stress Concern Present (03/06/2023) [employer] [place] of Occupational Health - Occupational Stress Questionnaire Feeling of Stress : To some extent Social Connections: Moderately Isolated (03/06/2023) Social Connection and Isolation Panel [NHANES] Frequency of Communication with Friends and Family: Twice a week Frequency of Social Gatherings with Friends and Family: Once a week Attends Mormon Services: Never Active Member of Clubs or Organizations: No Attends Club or Organization Meetings: Never Marital Status: Living with partner Housing Stability: Unknown (03/06/2023) Housing Stability Vital Sign Unable to Pay for Housing in the Last Year: No Unstable Housing in the Last Year: No Physical Exam:Mental Status: alert, oriented g0Qavyhko: bowel sounds present Spleen Tip: non-palpableHepatomegaly: noMass: [...] the patient about the procedure. Norbert Diaz MDAval[facility] medical centerbella Professor of Internal MedicineDivision of Gastroenterology and Hepatology 32764-2Oxutkyq and physical fwdyPI9022-68-25W67:46:40History and physical noteTXT1.2.840.556217.1.13.104.2.7.2.35627 9|[id number] for patient reqa93218-5Szwjcfe and physical noteLNUT[address] UsypXyuanvmsePyfhdufuwYHUX7209750744FHMYWK TZVVVVAGZOTVBIVQ7656-48-25E83:46:401.2.840 .373993.1.72.3.15|1.2.840.134998.1.13.104. 2.7.2.727879_[id number] [facility] Notes Date/Time Note Provider Source 2023-12-03 09:13:18 RijHS2wTo8QUpaQWk+ZnK67okH+z7qAPmQD roZGkQAYypt9xLigLMxKXNHZYRzoJ1915-0 09:13:18 Images from the original note were not included.Requested RenewalsName from pharmacy: Meclizine HCl 25 MG Oral TabletWill file in chart as: MECLIZINE 25 mg tabletSig: TAKE 1 TABLET BY MOUTH EVERY 8 HOURS NEEDEDDisp: 20 tablet Refills: 0Start: 12/01/2023lass: eRXFor: Chronic nauseaLast ordered: 3 weeks ago (11/06/2023) by Lucretia Coburn refill: 4Rx #: [id number]-aeicpv Bdaiji1912/03/2023 08:09 AMProtocol Details This refill cannot be delegatedManual Review: Women's Health providers only allowed to refill requests.Valid encounter within last 12 monthsName from pharmacy: Promethazine HCl 12.5 MG Oral TabletWill file in chart as: PROMETHAZINE 12.5 mg tabletSig: TAKE 2 TABLETS BY MOUTH EVERY 6 HOURS NEEDED FOR NAUSEA AND VOMITINGDisp: 30 tablet Refills: 0Start: 12/01/2023lass: eRXFor: Chronic nauseaLast ordered: 3 weeks ago (11/06/2023) by Lucretia Coburn refill: 09/21/2023x #: [id number]-kclecw (Other) Awxdmk5412/03/2023 08:09 AMProtocol Details This refill cannot be delegatedManual Review: Women's Health only allowed to refill requestsValid encounter within last 12 monthsTo be filled at: [facility] [address] [place] [address] VisitsDate Type Provider Dept1 Office Visit Taylor Verdin MD [facility] Med03/06/23 Office Visit Taylor Verdin MD [facility] Med01/19/23 Office Visit Taylor Verdin MD [facility] Med11/29/22 Office Visit Taylor Verdin MD [facility] Med10/18/22 Office Visit Holly Fregoso PA [facility] Med09/21/22 Office Visit Holly Fregoso PA Ang[facility] Fam MedShowing recent visits within past 540 days with a meds authorizing provider and meeting all other requirementsFuture AppointmentsDate Type Provider Dept12/12/23 Appointment Taylor Verdin MD [facility] MedShowing future appointments within next 150 days with a meds authorizing provider and meeting all other requirements 76936-4Mukuueqei encounter IqeqRV1035-95-28Z44:13:42Telephone encounter NoteTXT1.2.840.668920.1.13.104.2.7. 2.295124|0631219415BIYtidtnxqe for patient hzxy78467-3YwceHJAADBFUJQLMetmzroic C-CDA narrative opge309851271Rlhytzd M Fisher [address] LjkgChwwtuaskAislygvxiAECF117075374 5PNWEFDCKOGZKOLVRKESPMJ7671-61-29V6 9:13:421.2.840.905675.1.72.3.15|1.2 .840.229056.1.13.104.2.7.2.727879_2 [id number] Irene Morgan [facility] 2023-11-07 15:27:34 JBVycQomHYwvAXtbZfmu0yuuwAFx/OOlJiM u/N/4zXVfP9+lQInlb6vchHqTRthw9559-0 5:27:34 This medication was increased to 12.5mg dose. Disregard refill request 46969-5Iwxmsfnkx encounter FxpkLA2492-57-52M24:28:25Telephone encounter NoteTXT1.2.840.736311.1.13.104.2.7. 2.262325|8333939610LVNgomdfeht for patient gjmt87416-2TpokZKDGVNWGOXEGdjhcueir C-CDA narrative woxn529733362Qptp D [place] [address] 5EKDKXCIJYXWFRNGXLDUSPJ1493-33-06T6 5:28:251.2.840.806810.1.72.3.15|1.2 .840.252349.1.13.104.2.7.2.727879_2 [id number] Melissa Carlos [facility] 2023-11-07 14:16:10 /JdFq7jySfek/LJN2VGzD+OSW6CrSdX15Xw dZXxtcqvtZwG6B0WgNNVMpqdFK0Lv0465-1 4:16:10 Images from the original note were not included. 22594-7Iffjvfrki encounter AcvmCQ1640-31-05I27:50:42Telephone encounter NoteTXT1.2.840.986331.1.13.104.2.7. 2.399221|9824957839GBDklzbgxko for patient eiuh84055-6YfglTUNEDRCWNONWtcjqtnvb C-CDA narrative etnr126438480Rxosax M [address]Gal[place]on[place]TX[address] 0TWLLIVVFBOUQISFTRPNFDA3964-45-13Y3 4:50:421.2.840.030230.1.72.3.15|1.2 .840.029333.1.13.104.2.7.2.727879_2 [id number] [facility] 12:09:54 DE5fAuRPc251Am8gCtxieTxb3+0bEXXNj5g XxLri4BrlSjLIvvzZm9PzsTcNxpz76430-4 11-05T12:09:54 Pt has been contacted and scheduled follow up appointment for 12/12/2023.Encounter closed 81300-2Bvrjszasp encounter OmahYP6786-31-52J07:10:32Telephone encounter NoteTXT1.2.840.261252.1.13.104.2.7. 2.087881|2527150127OUNbxjwmtxf for patient sutz70064-1ScqwDIBVXCLNPIEGwntibksc C-CDA narrative dmad63435621Oofcfufp M [address]onTXTX775[address] 6MTKYBJHTGICOXQXUZLSGUY2143-04-44I2 2:10:321.2.840.740449.1.72.3.15|1.2 .840.782291.1.13.104.2.7.2.727879_2 [id number] Tammy Martinez [facility] 2023-11-06 10:55:56 rYEp3pkLlFBt7jX9vx5po3286JqAqJOlM4/ 9LEl7IJ+VPmtyTUo4D6oyyhPkAhd06721-7 11-05T10:55:56 Please schedule follow up appointment 11978-8Rmidxeckq encounter OkalLC6523-37-82B91:55:56Telephone encounter NoteTXT1.2.840.512509.1.13.104.2.7. 2.653256|6937498148BDLbnadqmzp for patient iaav17380-1AiylZKQOZZEWXEFWybjdxaxm C-CDA narrative text[address] AxcuJotginymoXffesngtlAIQI513664629 9ENBDLIPSODQWEWDTQYMXSH9228-06-96A0 0:55:561.2.840.768666.1.72.3.15|1.2 .840.565751.1.13.104.2.7.2.727879_2 [id number] [facility] 2023-11-05 11:15:02 BprwlcruQYbiTbUVhdiIlOpzBSZRd9o6x6N P1zeibgMNwhtSENMaE/GkLhle2BKI2340-4 11-04T11:15:02 Please review and sign if appropriate:Last office visit: 06/06/23Next office visit: not scheduledRequested PrescriptionsPending Prescriptions Disp [...] time for nauseaPersistent depressive disorderChronicUncontrolledTo see psychiatry 40928-5Gvlrjaspx encounter SjgvKU8356-99-68O29:18:06Telephone encounter NoteTXT1.2.840.023574.1.13.104.2.7. 2.360965|9063905906SSPplzcrlyu for patient gsct12511-4ZbnwLUJFYCTNXOWVabyyzslv C-CDA narrative bnkb204194499Yqfpr Flores [address] XfjgDdxunktneKrntpyqhmYDAX213559388 9XVZPWMZASRLILFJFBFYZQL6274-67-96F9 1:18:061.2.840.525642.1.72.3.15|1.2 .840.450435.1.13.104.2.7.2.727879_2 [id number] Rachele Huang LVN [facility] 2023-10-15 15:30:00 fyJHbLEehX2rgQ4OaQ3tU710SlZM9a/0oxr 4qMrUmuVeXnbhTmKWpr3DchI3NDAh2760-0 10-14T15:30:00 Images from the original note were not included.Venipuncture collection performed by clean technique on the left anticubitus. Total of 2 attempts were made. Slight pressure and a bandage/dressing were applied to the site(s). The patient experienced no complications. The following specimens were processed according to instructions and sent to [facility] laboratories per lab order on 10/15/2023:LT BLUESST 1REDLAVPPTDK GREEN (LiHep)DK GREEN (SodH)GRAYDK BLUE (K2)DK BLUE (S)ACDBlood CultureNIPT/NTD 61708-4Hebda AjorZL7401-98-01E61:31:35Nurse NoteTXT1.2.840.410579.1.13.104.2.7. 2.916484|0753722338FRIvadymmbc for patient qlle55086-6Yfhct NoteLNNARRATIVEFormatted C-CDA narrative textUT[address] FgxxExssyvrpwKnmpljipeUDVP897191889 0TMGAKPIWOQWJDIFDVFQXZD8440-38-98D6 5:31:351.2.840.730484.1.72.3.15|1.2 .840.969345.1.13.104.2.7.2.727879_2 [id number] [facility] 2023-10-15 08:38:48 w0kM5dcDPp9sbxiCvOdQe2iFEdPtnQXY0sL l9Drf2qh8JdVrZzc7ppnhjF3tsLQo2897-3 10-14T08:38:48 Images from the original note were not included.Requested RenewalsName from pharmacy: Meclizine HCl 25 MG Oral TabletWill file in chart as: MECLIZINE 25 mg tabletSig: TAKE 1 TABLET BY MOUTH EVERY 8 HOURS NEEDEDDisp: 20 tablet Refills: 0Start: 10/13/2023lass: eRXFor: Chronic nauseaLast ordered: 3 weeks ago (09/21/2023) by Lucretia Coburn refill: 4Rx #: [id number]-hyking Mrbroe3210/15/2023 08:13 AMProtocol Details This refill cannot be delegatedManual Review: Women's Health providers only allowed to refill requests.Valid encounter within last 12 monthsTo be filled at: [facility] - [place], [place] - [address] VisitsDate Type Provider Dept1 Office Visit Taylor Verdin MD [facility] Med03/06/23 Office Visit Taylor Verdin MD [facility] Med01/19/23 Office Visit Taylor Verdin MD [facility] Med11/29/22 Office Visit Taylor Verdin MD [facility] Med10/18/22 Office Visit Holly Fregoso PA [facility] Med09/21/22 Office Visit Holly Fregoso PA [facility] MedShowing recent visits within past 540 days with a meds authorizing provider and meeting all other requirementsFuture AppointmentsNo visits were found meeting these conditions.Showing future appointments within next 150 days with a meds authorizing provider and meeting all other requirements 82335-2Ovnhwgiwp encounter OpuoVN9423-68-94P44:38:55Telephone encounter NoteTXT1.2.840.556061.1.13.104.2.7. 2.208439|2001823770PBJfltyavwq for patient cgdx29562-1GfdhAXHKPEHWHUVHxcarfuif C-CDA narrative hznu030611200Sjdsljt M Fisher [address] PjmdCgwqgpbngRoaclvfbbGFRX034370445 6AGTMBAKCUOPLKGFGZIPCLI0272-13-10M1 8:38:551.2.840.753955.1.72.3.15|1.2 .840.462788.1.13.104.2.7.2.727879_2 [id number] Irene Morgan LVN [facility] 2023-09-25 16:50:57 /8sStArth5Ejf1Tk+CwTL4uT5GQ0PtOxlE0 nMYCKGy1bUKy5llsCuXPTqNEKPlK20254-3 09-25T16:50:57 See telephone encounter 09/25 57301-5Pptijkxfz encounter XizzCK1886-28-60H76:51:09Telephone encounter NoteTXT1.2.840.973423.1.13.104.2.7. 2.270320|2350686856YEJisgjtrzr for patient gewk06570-2BcboKVGWLHQZGZDIrkhmewzn C-CDA narrative hice192883808Yuekmde Collins [address]TXTX[address] 5MHJQJJKWACPZFWZRBYPAKE9221-74-82O8 6:51:091.2.840.513395.1.72.3.15|1.2 .840.697552.1.13.104.2.7.2.727879_2 [id number] Khris Grewal [facility] 2023-09-25 14:44:44 Zw66TfsT4de6KlKyh2f2iRmq+sZl7XaIzR6 jbxQ6narFE4N5vEpvv1cyf5KsN7aB5221-3 09-25T14:44:44 Referral sent. 16746-2Inzknmklj encounter EityKU6886-55-64N63:44:50Telephone encounter NoteTXT1.2.840.698112.1.13.104.2.7. 2.646932|3203640975WSXichmjlfq for patient ysoe91044-0YzvfJYSUOHUZSZGNvlxifsdv C-CDA narrative alwn913167960Pajwile Collins [address]TXTX[address] 8QBVYKGZVKKUPTXLLJLWRGO2444-31-83O6 4:44:501.2.840.029801.1.72.3.15|1.2 .840.869558.1.13.104.2.7.2.727879_2 [id number] Khris Grewal RN [facility] 2023-09-25 14:02:45 B1h23ziLsiZ1d3UXQaDOJ7pk5djeFsGImw0 gIry7voaNo4zn+rgyTnBy6Me0BM3y8986-6 4:02:45 Patient calling back need referral and records faxed to manager of data office [phone], she did not know doctor name. 11796-0Tiwzkjltc encounter BzeeNB6142-24-75W20:04:22Telephone encounter NoteTXT1.2.840.458465.1.13.104.2.7. 2.879735|7832599711VPCmqxtazgg for patient oati32544-6LjbwLZJJLZXMLLCVovdnmowo C-CDA narrative acdl932181365Mfuap Andrea[address] VdvvOwsixlxipRsnkvenxrHLMW536852147 4DQWIQXVXRFTRZWKRVMMFZP0744-80-96R2 4:04:221.2.840.318156.1.72.3.15|1.2 .840.561408.1.13.104.2.7.2.727879_2 [id number] Jennifer Mendez [facility] 2023-09-25 13:55:40 LNwxWsqRJi/fHsVIKA6FkgPVj07e8Lh/ARe 6b3YGBw41rQ1LTGiER9II6jViAFws4721-4 3:55:40 Spoke with patient. Patient requesting referral for local manager of data. Referral placed for non [facility] provider. Patient will get fax number of clinic she will be going to and contact us to fax referral.Khris Grewal RN 09/25/2023 1:56 PM 79059-3Yebbvyusf encounter TtmuLE2324-08-57R45:56:21Telephone encounter NoteTXT1.2.840.157182.1.13.104.2.7. 2.502989|5358586415FZChbeujtqp for patient kaud54743-4LgjcBWFWHIPKFENKlpdbdiqe C-CDA narrative text[address]TXTX775[address] 9TWZBTPCRNBXSSQYFLLVIPA8855-11-82F9 3:56:211.2.840.618850.1.72.3.15|1.2 .840.968803.1.13.104.2.7.2.727879_2 [id number] [facility] 2023-09-25 12:22:23 umSvK852I3hRcRJ1+YWwt5y0DLykUx5sfym hOunNIrICLth8jT/XVpOJ5O2v91K98339-1 09-25T12:22:23 José Luke is a 38 year old femalePatient states that provider had wanted her to see a manager of data. Patient is requesting for provider to place a referral for hematology and is wanting to know if provider could refer her to a manager of data that is in her area. Patient lives in [place], [place]. So closer to [facility]. 94370-9Vtprfsyxi encounter NpbtUB3219-81-61V48:25:13Telephone encounter NoteTXT1.2.840.739391.1.13.104.2.7. 2.848004|4073850401JHQuvikyead for patient njdg87284-0OtsgEGPDFPFUVGYIjtqxxrmn C-CDA narrative rydj557444692Hsxfdc A GarzaUT[address]TXTX[address] 0EMVBMHZCDTCSNKFDXFGFCF7315-60-90J5 2:25:131.2.840.425036.1.72.3.15|1.2 .840.789849.1.13.104.2.7.2.727879_2 [id number] Kathryn Durán [facility] 2023-09-25 12:08:05 R8NMZwAo04Y2Dp78aaXBPyptdOllJwzLl/w Xabsg3x21qJ1RXvozAcABIxKdPLst1637-0 2:08:05 Patient is returning nurse's call. 98310-2Rgteisqor encounter AdadFK2224-93-87U64:08:30Telephone encounter NoteTXT1.2.840.101686.1.13.104.2.7. 2.866228|2065464594DILfrmaache for patient sgfw20379-9YccsJMIPOAUMAHQVuuanvgbj C-CDA narrative dujx79545515Uqzop S Hernandez[address] HmhnYezkyoquvHddfwhptpTFHN091944405 8EQNHPVEPDIBLEZIPFFTCBD9365-17-72Q1 2:08:301.2.840.742041.1.72.3.15|1.2 .840.031530.1.13.104.2.7.2.727879_2 [id number] Chasidy Chaeny [facility] 2023-09-20 14:10:48 yjKfMkK4UPhLbGTjiAkN6gtJgiUTPI7chGJ VB77gqUFndjgoGh4/z4Ty9KcZjH/r2416-8 09-20T14:10:48 Images from the original note were not included.Notes: Cannot be delegatedLast Refilled:Name from pharmacy: Meclizine HCl 25 MG Oral TabletWill file in chart as: MECLIZINE 25 mg tabletSig: TAKE 1 TABLET BY MOUTH EVERY 8 HOURS NEEDEDDisp: 20 tablet Refills: 0Start: 09/20/2023lass: eRXFor: Chronic nauseaLast ordered: 3 months ago (06/06/2023) by Lucretia Coburn refill: 06/15/2023Rx #: [id number]-yywuwv Qmtbxp4109/20/2023 12:09 PMProtocol Details This refill cannot be [...] (08/24/2023) by Lucretia Coburn refill: 08/09/2023Rx #: [id number]-rjbbxw (Other) Fbhqcg0209/20/2023 12:09 PMProtocol Details This refill cannot be delegatedManual Review: Women's Health only allowed to refill requestsValid encounter within last 12 monthsTo be filled at: [address] [facility] VisitsDate Type Provider Dept1 Office Visit Taylor Verdin MD [facility] Med03/06/23 Office Visit Taylor Verdin MD [facility] Med01/19/23 Office Visit Taylor Verdin MD [facility] Med11/29/22 Office Visit Taylor Verdin MD [facility] Med10/18/22 Office Visit Holly Fregoso PA [facility]09/21/22 Office Visit Holly Fregoso PA [facility] Fam MedShowing recent visits within past 540 days with a meds authorizing provider and meeting all other requirementsFuture AppointmentsNo visits were found meeting these conditions.Showing future appointments within next 150 days with a meds authorizing provider and meeting all other requirements 11994-1Dghlavcxx encounter HacnIQ3371-55-63C21:11:10Telephone encounter NoteTXT1.2.840.961482.1.13.104.2.7. 2.228367|0441566890AFBbivplgnz for patient wxiq28630-5EffkSCTQHBUQOPUQuaxcjaan C-CDA narrative hfrl271140853Tjkovw J Medina MA[address] SspmLwszzmhpmJjizdnddwXOTF195052782 9YCMIPRSPCZAEUBMYZDTCKL7083-09-72M0 4:11:101.2.840.452022.1.72.3.15|1.2 .840.735408.1.13.104.2.7.2.727879_2 [id number] Judi Olson MA [facility] 2023-09-19 09:11:56 WawXSzpWWr0PW6ha6h8b5fyfECdEHh3Udyu tbcnKX+eymN4lIJZArWHhMxPMn1Z+09:11:56 Lm on for pt to return call. BEBE MOONEY RN 09/19/2023 9:12 NANI MOONEY RN 09/19/2023 9:12 AM 17886-6Pgjoapjbk encounter EjwuCO4975-86-61Z80:12:59Telephone encounter NoteTXT1.2.840.854602.1.13.104.2.7. 2.614072|7966257839WRVbyjlvqat for patient tgkm47948-2UpgdLGTPOGEROAJGsmkzyeeo C-CDA narrative tuco763413992Vfiojfkrq G Cervantes RN[address] VvdlVdcvdxdneOejvmmopaDNNB887996813 3TJDIDNCNAMSSJQLQHAJCAQ7819-07-30K2 9:12:591.2.840.194747.1.72.3.15|1.2 .840.649043.1.13.104.2.7.2.727879_2 [id number] Bebe Fungantes [facility] 2023-09-17 08:44:27 Biu88YZ92Qixgo26gldRYdlf141dheRQdq+ XMPkue+rQrjW6nbUHgdl2E9FiCnQI5854-0 08:44:27 Hematology. Has the patient seen someone before? 12475-8Guzmsuvwj encounter JdaaFQ8848-79-61X67:44:56Telephone encounter NoteTXT1.2.840.921238.1.13.104.2.7. 2.414598|[id number] for patient byct61959-5OuwuRMYCDOFFXOYJinqabtot C-CDA narrative text[address] Hr[id number] 9FXQDKVIXLAVLEDXMAGXOBN3123-46-69Z4 8:44:561.2.840.015896.1.72.3.15|1.2 .840.563837.1.13.104.2.7.2.727879_2 [id number] [facility] 2023-09-14 15:16:15 V6z2YjxMoxB7tvA14dXY/T8bu5X5X+T6wD2 oTMYTWBk3ZAaiPD1XPLHby8DbsMZW0663-3 09-14T15:16:15 The Aspirin is to prevent DVT/PE.Can see specialist if desires.Can send an rx but not sure if Medicaid covers over the counter medication. 76283-8Thzqbucho encounter VocaOZ9289-91-55F67:17:57Telephone encounter NoteTXT1.2.840.613269.1.13.104.2.7. 2.738889|[id number] for patient czqx37715-3YfufZXTWZNHHUJBQdjcnaeyz C-CDA narrative textUT[address] Qw[id number] 5YNWCBYXKODIPLPUUCIYDTB9169-05-93J2 5:17:571.2.840.616754.1.72.3.15|1.2 .840.254018.1.13.104.2.7.2.727879_2 [id number] [facility] 2023-09-13 14:36:17 QnjzWRe+GNwj3zhkz8PL0cIZn88e5VmiAPg 6hkmW/UkNPdj8rDe/Tg/a4Ud7w38Y8646-8 09-13T14:36:17 Contacted patient to follow up with them regarding their procedure at the [facility] pain procedure suite. The patient reported the [...] with your care and experience in the [facility] Pain Procedure Suite? YesFERNANDA RAMOS RN 09/13/2023 2:36 PM 69635-0Ytxfiawsi encounter PnneNZ1009-32-82T73:44:18Telephone encounter NoteTXT1.2.840.166543.1.13.104.2.7. 2.308055|[id number] for patient qogy16096-4FrswMHOIGRZZVGGPhzwxchgw C-CDA narrative [id number] D Simpson RN[id number] 1MEDBXMDKUZVOHZQYCBEVGT9757-37-99D8 4:44:181.2.840.671017.1.72.3.15|1.2 .840.903715.1.13.104.2.7.2.727879_2 [id number] Fernanda Ramos RN [facility] 2023-09-12 15:26:52 IXsIokY2ceGA/rkipDLfizqStur9G2sz6MS n1KCZzguf7HRm1EHPjBZNXFPGl6y86770-6 09-12T15:26:52 Elapsed Sedation Time: 30 min. 17047-8Bkaou procedure evwdIV5360-10-96I45:26:54Nurse procedure noteTXT1.2.840.164511.1.13.104.2.7. 2.637509|[id number] for patient devb09760-2AvuwCUCEEMYZELXUekrkmusc C-CDA narrative [id number] Cano RN[id number] 0NOOQURXSZTRHAYPYQVZXEL4981-83-47C8 5:26:541.2.840.601021.1.72.3.15|1.2 .840.110886.1.13.104.2.7.2.727879_2 [id number] Karen Cano RN [facility] 2023-09-10 16:15:00 TloobQRbBCus7edZ6ymoxCdfVA4rB+0TQHy DysXFpe3HUJ9tR89eBBsgRnxJ3Vi48391-9 6:15:00 Images from the original note were not included.Venipuncture collection performed by clean technique on the right anticubitus. Total of 1 attempts were made. Slight pressure and a bandage/dressing were applied to the site(s). The patient experienced no complications. The following specimens were processed according to instructions and sent to [facility] laboratories per lab order on 09/10/2023:LT BLUE 3SST 1REDLAVPPTDK GREEN (LiHep)DK GREEN (SodH)GRAYDK BLUE (K2)DK BLUE (S)ACDBlood CultureNIPT/NTD 57165-6Xkprg HoscME4001-47-80O13:22:15Nurse NoteTXT1.2.840.349003.1.13.104.2.7. 2.317338|[id number] for patient jrtq50305-9Ejyxs NoteLNNARRATIVEFormatted C-CDA narrative textUT[address] Hw[id number] 0DXZNOEGKPTQTFXGQEDZXSJ0284-95-40U3 6:22:151.2.840.773846.1.72.3.15|1.2 .840.374849.1.13.104.2.7.2.727879_2 [id number] [facility] 2023-09-10 16:15:00 FkVkQmQAMpF0QP8aLE8qTANL3I2pNrJHYhC R381s0+R76VYBFiJOuTkZe4wEAj5R5037-4 6:15:00Addended by: LOYDA FRIEDMAN on: 09/11/2023 05:41 AMModules accepted: Orders 48250-7Twwfeumy SvzbzvxnNL9616-92-91P06:41:16Addend DocumentTXT1.2.840.688591.1.13.104. 2.7.2.804036|[id number] for patient ecct44125-6MzmfVOMGGOPDOQFKwwofhfqg C-CDA narrative dzez433327189V'Lya N [id number] 7BMGFJNOGUUIXDVIFZPBWIH7746-70-63R6 5:41:161.2.840.198861.1.72.3.15|1.2 .840.149522.1.13.104.2.7.2.727879_2 [id number] Loyda Polo [facility] 2023-09-10 16:15:00 Sc74ewRnj9M715vBZm2b1X85P8YxEH7kDyt pp3ERhWEU1PhpKpVMBu+8Cr+57yNQ0538-2 09-10T16:15:00Addended by: IRIS CASH on: 09/11/2023 07:51 AMModules accepted: Orders 68438-6Fbwpjihk NqigxqanVS8148-80-11I35:51:43Addend DocumentTXT1.2.840.822754.1.13.104. 2.7.2.561802|[id number] for patient thve02030-5NhwhTAKCOMOPPAWVslhrwepl C-CDA narrative fdun702883578Jgon [address]vdG[id number] 3QJSBQHSHYFSDPUYFFJACQS4319-59-57R6 7:51:431.2.840.089579.1.72.3.15|1.2 .840.360940.1.13.104.2.7.2.727879_2 [id number] Iris Cash [facility] 2023-09-10 09:53:52 H64g6xFuHB1c4TeA48+WxIqmcbM+Or5syvN CQlDwfkz3C+zS4BLf6HE5/HqalfjK2464-0 09:53:52 Left a detailed message with the [...] and leave valuables at home. Address is [address] [place] [address] in [place]. If taking insulin patient is to take one half of normal evening dose day prior to procedure. Pt to follow physician instruction regarding blood thinners and NSAIDS. Covid/travel exposure and vaccination recommendations addressed with patient. Arrival time of 1330 given. 55694-3Nombrltkf encounter TneoXM7749-85-88D01:57:23Telephone encounter NoteTXT1.2.840.576707.1.13.104.2.7. 2.040233|7659614312RSJvcnxcvgi for patient iflw86813-5YjtpZPLDHJVDAQHLkksagnbg C-CDA narrative emoa523230117Qrgmojk Williams RNUT[address] OwkkDlfpinypbOahtbnsrxSJSJ591252960 2LPVBOOOYTRGYMMDLZEEANE9985-54-51J5 9:57:231.2.840.348832.1.72.3.15|1.2 .840.201715.1.13.104.2.7.2.727879_2 [id number] Dorothy Escalante BUCKY [facility] 2023-08-24 11:16:29 e7JP5x/zDkaKbnjhwsrCsUKdL3rzZt6h9Xd X1fxrxKVQ7qDVLimJT0YWTb1l5Z814030-5 08-24T11:16:29 Medication refilled per protocol. 55373-7Vxqdfdehw encounter KngbHB5936-59-83Z25:17:24Telephone encounter NoteTXT1.2.840.872977.1.13.104.2.7. 2.642107|2424364453UYRcfpeneel for patient kera56425-3SrcoHLXKCIILVFTIrnsqmrau C-CDA narrative bwmp295683642Gdjwsjw R Allen [address] MjseLipppkhzvTjhgyyimzQKOB298675656 8WGLGNFQZELHSCMLRGRWATY6231-83-04X1 1:17:241.2.840.263858.1.72.3.15|1.2 .840.434611.1.13.104.2.7.2.727879_1 [id number] Clara Wooten LVN [facility] 2023-08-08 16:18:59 jZ2cJEtxCTWXokSAfoLBHCb5mIp3jfC3BcF CuCwynvO8vQ4SYPkEKB7kuFCt4QPF8849-5 2-27T16:18:59 Images from the original note were not included.Requested RenewalsName from pharmacy: Promethazine HCl 12.5 MG Oral TabletWill file in chart as: PROMETHAZINE 12.5 mg tabletSig: TAKE 2 TABLETS BY MOUTH EVERY 6 HOURS NEEDED FOR NAUSEA AND VOMITINGDisp: 30 tablet Refills: 0Start: 08/08/2023lass: eRXFor: Chronic nauseaLast ordered: 1 month ago (06/26/2023) by Lucretia Coburn refill: 06/26/2023Rx #: [id number]-agqjou (Other) Pnvmca2808/08/2023 03:15 PMProtocol Details This refill cannot be delegatedManual Review: Women's Health only allowed to refill requestsValid encounter within last 12 monthsTo be filled at: [facility] [address] [place], [place] [address] VisitsDate Type Provider Dept1 Office Visit Taylor Verdin MD [facility]03/06/23 Office Visit Taylor Verdin MD AngRebeka [facility]01/19/23 Office Visit Taylor Verdin MD [facility]11/29/22 Office Visit Taylor Verdin MD [facility]10/18/22 Office Visit Holly Fregoso PA [facility]09/21/22 Office Visit Holly Fregoso PA [facility] MedShowing recent visits within past 540 days with a meds authorizing provider and meeting all other requirementsFuture AppointmentsNo visits were found meeting these conditions.Showing future appointments within next 150 days with a meds authorizing provider and meeting all other requirements 33973-5Jqrtkejmn encounter OzlbDZ9061-43-14I48:19:07Telephone encounter NoteTXT1.2.840.709397.1.13.104.2.7. 2.589169|[id number] for patient nkxs23533-6LhnjTLRINVFDHJLSlgtwucwk C-CDA narrative ihak436753019Gnhimny M Fisher [address] DckbEgealnjebYfqydgrgoJLBR973133369 6GXGYTSYRPWETAVSTHXCCSN5619-96-44Y7 6:19:071.2.840.681785.1.72.3.15|1.2 .840.580469.1.13.104.2.7.2.727879_1 [id number] Irene Morgan [facility] 2023-04-13 13:19:12 Uy7bPZBfrcGl2JhUF9AHg1KqdUBiJtiXvfF 06OW5450h8zIwJIO+hhghotbEAxon5076-9 3:19:12 Addendum created 04/13/23 1319 by Jayjay Contreras CRNA Intraprocedure Meds edited 80809-4Pomjpxwp IwbdawpsMK7172-07-44G83:19:12Addend um DocumentTXT1.2.840.456520.1.13.104. 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 OPERATOR,CERTIFIED REGISTERED NURSE BEAN PICKER MACHINE OPERATOR [facility] 2023-04-09 09:44:28 8asJua8gUxuiN74zGZEfnbtiXZhI+J0quoU seduwi0RJ8xM+pJ8Qsgl0iuzQcS395295-1 09:44:28 Patient: José Luke Procedure Summary Date: 04/09/23 Room / Location: GI PROCEDURE [address] [place] [address] LOCATION Anesthesia Start: 853 Anesthesia Stop: 915 [...] returned to baselineRespiratory status: acceptableHydration status: acceptable 66952-2Tnrfkybmoysgkp Postoperative evaluation and management hqtyGQ8981-42-05S53:44:37Anesthesio logy Postoperative evaluation and management noteTXT1.2.840.098305.1.13.104.2.7. 2.922538|2341604006ZTSjjswmvon for patient lhmu16016-8Jimewwpn operation noteLNAN-ANESTHESIOLOGY ANESTHESIOLOGISTAN-ANESTHESIOLOGY ANESTHESIOLOGISTUT[address] Typi[id number] 6AWKVPAKQJMIHFEGIYOFJXM9258-04-77G4 9:44:371.2.840.278145.1.72.3.15|1.2 .840.462244.1.13.104.2.7.2.727879_1 [id number] AN-ANESTHESIOLOGY ANESTHESIOLOGIST [facility] 2023-04-09 08:59:10 yAeWm18vIwYn0+tP+ZzUx6EhcF3ursORvrc JisxmZlG2a6vvdAWdGyWHTs/abRGl7917-9 08:59:10 Images from the original note were [...] Verdin MD Last refill: 03/06/2023 Rx #: [id number] Anti-nausea (Other) Failed 04/09/2023 08:16 AM Protocol Details This refill cannot be delegated Manual Review: Women's Health only allowed to refill requests Valid encounter within last 12 months To be filled at: [address] Recent VisitsDate Type Provider Dept 03/06/23 Office Visit Taylor Verdin MD [facility] 01/19/23 Office Visit Taylor Verdin MD [facility] 11/29/22 Office Visit Taylor Verdin MD [facility] 10/18/22 Office Visit Holly Fregoso PA [facility] 09/21/22 Office Visit Holly Fregoso PA [facility] 01/16/22 Office Visit Radha Trinidad PA [facility] Showing recent visits within past 540 days with a meds authorizing provider and meeting all other requirementsFuture AppointmentsDate Type Provider Dept 06/06/23 Appointment Taylor Verdin MD [facility] Showing future appointments within next 150 days with a meds authorizing provider and meeting all other requirements 54165-1Alyebecsa encounter HmqvNC8463-97-71B12:59:26Telephone encounter NoteTXT1.2.840.056913.1.13.104.2.7. 2.231172|4559413243BFAygftxrly for patient lxeo46080-3SjtxFL095114248Qsqfcnx M Fisher [id number] 2ROMTNMDFNXIWGZDGWBHJYI2976-32-35U9 8:59:261.2.840.972417.1.72.3.15|1.2 .840.015336.1.13.104.2.7.2.727879_1 [id number] Irene Morgan [facility] 2023-04-06 10:49:23 6y4I2Maax0A0w6q/r8oOfm+v5wov92CP0DX 5kaUVOmBUjXOOlMFFKp50f7SGSwC14479-8 04-06T10:49:23 Attempted to call patient for appointment reminder/preoperative call. Voicemail left with phone number for patient to call back [phone] FnetUI1145-86-95L55:49:32Nurse NoteTXT1.2.840.730103.1.13.104.2.7. 2.929164|[id number] for patient nvet43999-1MwrgRI292266793WkUolngx [place] [id number] 0EWLLHVEPQFNNLNIIVKWFUP6274-77-71U5 0:49:321.2.840.306036.1.72.3.15|1.2 .840.330747.1.13.104.2.7.2.727879_1 [id number] Emanuel Gandhi RN [facility] 2023-04-05 16:20:09 mvHtsVNG0yDAZxdBhcSDCDcDtp4n8UClbRK 16W2QxhKn6iUYpFAFk8uaCAh9FJ4x1498-0 6:20:09 Placed Psychiatry referral per pt request 06544-2Pakurczuh encounter RxsiIT5588-06-90I67:24:43Telephone encounter NoteTXT1.2.840.212453.1.13.104.2.7. 2.725737|8416800756EHPguyweppk for patient ikcq98163-3AdnmGZEYGPASCT[address]vdG[id number] 7TFZJFLAGEHGKKLKVWAHBSD9165-85-86M7 6:24:431.2.840.893842.1.72.3.15|1.2 .840.175834.1.13.104.2.7.2.727879_1 [id number] [facility] 2023-04-03 10:34:22 6em0fGShonzuaFKqc4uCK0mzUWMNCJv+Z6F xp1Nfz+rlsu8vEEzMsxieUYr5jlSU6826-9 0:34:22 Name/ MRN / Age / Gender:José Oshea Julio Cesar, [id number] year old female BMI:Estimated body mass index [...] 03/29/23 99% Date of Surgery: 04/09/2023Surgeon: Norbert Diaz MDProcedure: ESOPHAGOGASTRODUODENOSCOPY (Mouth)OR Location: [facility] OR LOCATIONAnesthesia Preop Eval (physical exam)Copied forward and updated from: 11/14/2021 Anesthesia Preop: Chart Review, Phone Preop and Qvaw-eq-EkqxRKVR questionnaire answers incorporatedAPAC Communication: Ozempic, jardiance.Spoke with [...] 7.0 at 22 cm, cuffed, DL,Mac 3, i5l-PXLF 1 approach 07/29/2021: MOD sedation for injections10/18/2020: [...] TX steroids and abx108/25/2020 10:12 new onset WJYASZD-DtN-4 NAAT: Positive (A)03/26/2021 16:44 SARS-CoV-2 NAAT: Positive [...] Date: 12/31/2016(+) Vaping use(+) Alcohol use (occasionally) 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 Hold on DOS. Phentermine: Alert [facility] anesthesiologistSGLT2 Inhibitors: "gliflozins" to be held for [...] mouth in the morning. 90 tablet 1 Aqcysdzbky-Kjppzeyspgwrh-Lhrb 50-300-40 mg per capsule TAKE 1 CAPSULE BY MOUTH EVERY 6 HOURS NEEDED fluticasone propionate 50 mcg/actuation nasal spray Use 1 [place] in each nostril in the morning. 16 [...] N/A 05/28/2020 Surgeon: Norbert Diaz MD; Location: [place] OR [facility] COLONOSCOPY 05/28/2020 COLPOSCOPY HEMORRHOIDECTOMY N/A 11/14/2021 Surgeon: Azalia Michel MD; Location[facility]JE[facility] Right 10/18/2020 Surgeon: Curtis Morley MD; Location: [place] [facility] Anesthesia Physical ExamGeneralno apparent distress and [...] routine analgesia & antiemeticsRecovery Plan: PACUAdditional comments: 33933-3Wrmotummxxefhi Preoperative evaluation and management bsmeQB8965-37-07I04:43:50Anesthesio logy Preoperative evaluation and management noteTXT1.2.840.857953.1.13.104.2.7. 2.775068|3724721510LFWvdtppwap for patient aurh17694-8Kgsvuuoo operation noteLNUT[address] SgjgWibfvyxoaKypdsfedsFSWS686825357 0XEZTYMLYFNLQAQPFSDGOCT8769-73-45D2 7:43:501.2.840.612947.1.72.3.15|1.2 .840.367947.1.13.104.2.7.2.727879_1 [id number] [facility] 2023-04-02 15:01:53 pA4aNB3BHRNvCN4F6tMltb0LYA2FtblK+bz 2hIT3DMWnX9Or//fyfELYzxuC+v5D8971-2 5:01:53 Requested Prescriptions Pending Prescriptions Disp Refills semaglutide (OZEMPIC) 2 mg/dose (8 mg/3 mL) PnIj [Pharmacy Med Name: OZEMPIC 2mg/dose Pen Injector] 3 mL 2 Sig: INJECT TWO (2) MG UNDER THE SKIN ONCE WEEKLY. 23963-3Wcftzvpii encounter PwigXW4306-24-96U03:02:31Telephone encounter NoteTXT1.2.840.776221.1.13.104.2.7. 2.538854|9526889805XGGbaegxlpq for patient ppnh94736-6IinfQY825328602Kwwdftsz Avalos MA[address] IpctHsfalcnvlPcdxmogwuYIXM618281913 2NJMHXLRNYPTEHSRDWRGEIG2164-89-65H4 5:02:311.2.840.968666.1.72.3.15|1.2 .840.523076.1.13.104.2.7.2.727879_1 [id number] Yasmeen Finch MA [facility] 2023-03-30 16:41:53 e4AHUtya2oIt3e7eTHsHQeJajszzPT2shCK kOQdE5QaldIxRO5KTrwiDJBRLYm8K3444-8 6:41:53 LOVN sent to [facility] via right fax 00240-7Sgjtntscu encounter OkquHK3176-81-10A03:42:20Telephone encounter NoteTXT1.2.840.923046.1.13.104.2.7. 2.822972|4949516186SUPqrsvdeki for patient rrlc50790-8JhjgJR471765405Vtmdacj L Mckeon [address] OgfrVwxizdjchZbafugbrgAYWV622938085 7RZJGNVVUSRMDWSTFMLJRKO1696-28-33G9 6:42:201.2.840.158306.1.72.3.15|1.2 .840.509919.1.13.104.2.7.2.727879_1 [id number] Chari Mckeon [facility] 2023-03-19 14:58:36 WQti3K9gBGAsJqv23cTOr+rs+DrvqUEuFqB okAQDMMZKTT/NXyL5buRB0yQ6Rd4w7848-5 4:58:36 Prescription & Letter of Medical Necessity has been completed & signed by DAISY Vila as well as scanned to patient's chart. Clinical notes, patient demographics, & LMN have all been faxed to [employer] .Bia Zelaya MA 03/19/2023 2:58 PM 42488-7Dhjygcloz encounter XxkbSC5001-64-49C19:58:47Telephone encounter NoteTXT1.2.840.939193.1.13.104.2.7. 2.573983|3967771888BOGzgycfsko for patient tmlh26978-1AprrRJ929944640Hecevaj Martinez [address] ZtdvHfoywhwffUodoazfauPKIZ119583105 7DRHXAXKTNBMPDMFKCVHPMV6208-41-51A9 4:58:471.2.840.881424.1.72.3.15|1.2 .840.901938.1.13.104.2.7.2.727879_1 [id number] Bia Zelaya MA [facility] 2023-03-19 14:52:39 UUL6HjRj2TmqCwrTs1SDGlyiATXbRvh16jd 8LTQ+wbVhlOhEY11slj6J+3ckLlIv8953-7 4:52:39 Fax received from [employer] stating they did not receive the LMN sent by DAISY Vila on 03/13/2023. LMN filled out and placed in DAISY Vila's folder for review and signature. Bia Zelaya MA 03/19/2023 2:54 PM 59888-0Xxdkjbaoj encounter WjxsGQ1717-36-54J83:58:47Telephone encounter NoteTXT1.2.840.254288.1.13.104.2.7. 2.022191|7917709208ZLNbffxavdo for patient sryt59967-3RwjaLNCCXCACFL[address] LwqxYynezpujrAvmyuhgnxZUKL143464295 9SVHNZQIGCLRBWZFZWJPPUV0313-72-50F7 4:58:471.2.840.023225.1.72.3.15|1.2 .840.886693.1.13.104.2.7.2.727879_1 [id number] [facility] 2023-03-14 08:24:53 TkGEHRYL7CsjHXHhsrAO8p4L8HARm/W0RC0 mBb4REob8PIQiGG5jFKf1F5UtUtaf2836-2 08:24:53 Prior Authorization for Celecoxib 100MG capsules has been APPROVED. Dates: 03/14/2023 - 03/13/2024A#: [id number] Zelaya MA 03/14/2023 8:24 AM 29573-3Qaketbnho encounter EzjdNI9312-59-74J97:25:53Telephone encounter NoteTXT1.2.840.044387.1.13.104.2.7. 2.858206|1408845440HWAobzkdfek for patient vmqm42252-7DylyWL287713140Cpercqf Martinez [address] QvsnJvswybqxfQglinkwbaUJXA896227328 9REZYLJFGDJAJXUUPIVPYBQ1763-08-84Q9 8:25:531.2.840.220656.1.72.3.15|1.2 .840.199056.1.13.104.2.7.2.727879_1 [id number] Bia Zelaya [facility] 2023-03-14 08:07:24 uMfdj6NaDmnlAmIO0jcNB10sqIEiSDLMxoZ 9q6+sQ8WaFH3jMKfg8wMiyddq5uKT4086-3 08:07:24 Images from the original note were not included.Prior Authorization required for Celecoxib 100MG capsules.Covermymeds.comKEY: [id number] Pharmacy [address] [place] [address] WESTPhone: ZyqgbhaBia Zelaya MA 03/14/2023 8:12 AM 42496-1Uyrwttxfh encounter JxpuYH2934-37-17W33:12:56Telephone encounter NoteTXT1.2.840.473652.1.13.104.2.7. 2.122635|7379563398RPHlyhwnudj for patient vluz82897-3YuukTK384609395Kcdprdl Martinez [address] BnsvBxklpqribSikiimtcjAEXH677012712 3LBLRGBKDKDLYOLBZRVFLVN8539-43-53Z4 8:12:561.2.840.335747.1.72.3.15|1.2 .840.663284.1.13.104.2.7.2.727879_1 [id number] Bia Zelaya MA [facility] 2023-03-13 14:30:00 FVwDamlFiwmU9Oplo13IyN1Vng1fL3odSNR +jiRLq1oWtPM6+/8/XgJe2b1CqSZ/03-13T14:30:00 Addended by: BETH PHAM RN on: 03/15/2023 05:00 PM Modules accepted: Orders 10801-0Tcmjcjgd XlochfgiSK0645-46-98Y45:00:15Addend um DocumentTXT1.2.840.947898.1.13.104. 2.7.2.223019|[id number] for patient yuvv36959-8BfjuTMOMXZFVBN[address] CvpjBbonhghgiMogxlxsbyQZVY268050834 4KMUKUDHFPTYXEPQTIHHDAG7209-77-92V7 7:00:151.2.840.463691.1.72.3.15|1.2 .840.504457.1.13.104.2.7.2.727879_1 [id number] [facility] 2023-03-08 16:12:58 e6G8AG15NThUbPMGpFTF6z5kKDyN+w3kyMn gRXjymWvaeYzQKjrBeFagWg/jtETy8162-8 03-08T16:12:58 Recent VisitsDate Type Provider Dept 03/06/23 Office Visit Taylor Verdin MD Ang-Db C[facility] Med 01/19/23 Office Visit Taylor Verdin MD Ang-Db [facility] Med 11/29/22 Office Visit Taylor Verdin MD Ang-Db C[facility] Med 10/18/22 [facility] 09/21/22 Office Visit Holly Fregoso PA [facility] Med 01/16/22 Office Visit Radha Trinidad PA [facility] Showing recent visits within past 540 days with a meds authorizing provider and meeting all other requirementsFuture AppointmentsDate Type Provider Dept 06/06/23 Appointment Taylor Verdin MD [facility] Showing future appointments within next 150 days with a meds authorizing provider and meeting all other requirementsLast refill wasNuvaRing 0.12-0.015 mg/24 hr vaginal insert 1 Each 0 02/05/2023 -- Sig: Insert 1 Each into vagina once every month. Insert vaginally and leave in place for 3 consecutive weeks, then remove for 1 week. 52013-1Jijwulwsu encounter IfjuHW2599-82-25A56:13:16Telephone encounter NoteTXT1.2.840.102149.1.13.104.2.7. 2.251513|5974236251BXCvvdwlgbq for patient ethc210622176Ajzrfxu R Leon [address] FygvJuyayzahqUixshpisuZRPE840654649 0RTWHEZTCCLOSYCUGLDLUMV3757-19-19E9 6:13:161.2.840.151959.1.72.3.15|1.2 .840.144891.1.13.104.2.7.2.727879_1 [id number] Nidia Barnhart [facility] 2023-03-06 15:35:12 oEjoGcwGhAOyJ4YZ4IbBFNFGOglLqxHDv47 p5OsaTnZ7rNiM6OvseNPmx1IAmOhb2817-5 03-06T15:35:12 NuvaRing 0.12-0.015 mg/24 hr vaginal insertInsert 1 Each into vagina once every month. Insert vaginally and leave in place for 3 consecutive weeks, then remove for 1 weekDispense: 1 Each Refills: 0 ordered 07588-5Zjugqjlul encounter GnngUW4622-29-84Y12:38:00Telephone encounter NoteTXT1.2.840.187354.1.13.104.2.7. 2.170259|6837144351SMRaguowunh for patient [address] NioiVycowqbxrEicuqezbkILXW656380012 2AGBAOELLDLQQEMAKTHDVOR3106-11-86S3 5:38:001.2.840.158354.1.72.3.15|1.2 .840.739455.1.13.104.2.7.2.727879_1 [id number] [facility] 2023-02-26 09:04:23 BDAkZiRVcrp9Xw8zVf+4hzLZ0JoVyA7Fwj7 ELZI/J58SmizqmDmHMLJ9P3Tupqdh3985-8 02-26T09:04:23 Requested Prescriptions Pending Prescriptions Disp Refills O[facility]IC [...] Dept 04/18/22 Telemedicine Visit Radha Trinidad PA [facility] Showing recent visits within past 365 days and meeting all other requirementsFuture AppointmentsNo visits were found meeting these conditions.Showing future appointments within next 365 days and meeting all other requirements Rerouting to correct pool/clinician 41100-8Gwuwvblcw encounter ZgoxLI4878-81-06Y91:05:25Telephone encounter NoteTXT1.2.840.830224.1.13.104.2.7. 2.083421|[id number] for patient [id number] Rohit [address] Ay[id number] 9YYDRQMIWPJJOMBZAMSJTVS9791-21-42F3 9:05:251.2.840.702368.1.72.3.15|1.2 .840.225282.1.13.104.2.7.2.727879_1 [id number] Sabrina Bee [facility]
[2023-12-18 15:24] LABS: Absolute Lymphocytes (CBC) 1.4 K/uL (0.7-4.9); Absolute Monocytes 0.3 K/uL (0.1-1.3); Absolute Neutrophil 3.4 K/uL (1.8-8.0); Basophils % 0.6 % (0-1.3); Eosinophils % 0.9 % (0-4.4); Hematocrit 40.2 % (36.0-45.0); Hemoglobin 13.2 g/dL (12.0-15.0); Lymphocytes % 26.8 % (15.3-44.8); MCH 29.2 pg (27.0-35.0); MCHC 32.8 g/dL (32.0-36.0); MPV 10.9 fL (7.6-11.3); Monocytes % 6.5 % (3.3-12.3); Neutrophils % 65.2 % (41.7-73.7); Platelets 209 thou/uL (152-406); RBC Red Blood Cell Count 4.51 M/uL (3.86-4.86); Red Cell Distribution Width 13.4 % (12.1-15.2)
[2023-12-18 15:48] LABS: ALT/SGPT 27 U/L (13-56); Albumin 3.5 g/dL (3.4-5.0); Alkaline Phosphatase 66 U/L (45-117); Anion Gap 7.9 mEq/L (5.0-15.0); BUN Blood Urea Nitrogen 7 mg/dL (7-18); Bicarbonate 27 mEq/L (21-32); Bilirubin Total 0.4 mg/dL (0.2-1.0); Globulin 3.6 g/dL (2.3-3.5); Glomerular Filtration Rate 118 ml/min (=/>90); Glucose Level 326 mg/dL (74-106); Potassium 3.9 mEq/L (3.5-5.1); Protein, Total 7.1 g/dL (6.4-8.2); Sodium Level 134 mEq/L (136-145)
[2023-12-18 15:50] LABS: AST/SGOT < 10 U/L (15-37); HCG, Quantitative < 1 mIU/mL (1-3)
--- NOTE | 2023-12-18 17:16 | RAD REPORT ---
EXAM DESCRIPTION: US - Transvaginal Study Probe - 12/18/2023 4:13 pm CLINICAL HISTORY: , vaginal bleeding COMPARISON: No comparisons TECHNIQUE: Sonographic grayscale and color flow images of the pelvis were obtained through transvag inal approach. FINDINGS: The uterus is normal in size, shape and echotexture. The uterus measures 8.2 cm in length. The endometrial stripe measures 3 mm, normal. Both ovaries are normal in size, shape and echotexture. The right ovary measures 3.7 x 1.3 x 2.7 cm. The left ovary measures 2.5 x 1.8 x 2.9 cm. No ovarian or parovarian lesions. No adnexal masses. Normal Doppler blood flow was demonstrated to both ovaries. No significant pelvic ascites. IMPRESSION: No intrauterine is identified. Study is normal otherwise.
--- NOTE | 2023-12-18 17:20 | EDPHYS ---
Physician Documentation [facility] Name: Kelsey Harrell Age: 38 yrs Sex: Female : 1985 Arrival Date: 12/18/2023 Time: 14:33 Bed 6 Private MD: ED Physician Brad Chua HPI: 12/17 14:48 This 38 yrs old Female presents to ER via Wheelchair with complaints of ec2 Vaginal Bleeding, + Preg <12wks. 14:48 Patient arrives today due to concern for vaginal bleeding. Patient reports that LMP was ec2 irregular and last 1 was 1 month ago. Patient reports some abdominal cramping as well as vaginal bleeding. 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 Reports history of symptoms of autoimmune disorder however medication list reviewed on external records did not show any rheumatologic medications.. 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 - Infectious Disease History:: Denies. - Social history:: Smoking status: Patient denies any tobacco usage or history of. ROS: 14:48 Constitutional: as per hpi ec2 Exam: 14:48 Constitutional: GEN: NAD Head: atraumatic Eyes: EOMI Ears: External ears are ec2 normal. CV: regular rate LUNGS: no respiratory distress ABD: non-distended, soft, nontender, no guarding, not rigid SKIN: no evidence of rashes MSK: no evidence of trauma NEURO: moves all extremities equally Vital Signs: 14:45 BP 127 / 80; Pulse 86; Resp 18 S; Temp 98.2(TE); Pulse Ox 100% on R/A; Weight 90.72 kg as6 (R); Height 5 ft. 4 in. (R); Pain 8/10; 16:02 BP 128 / 85; Pulse 77; Resp 18; Pulse Ox 99% ; rs5 17:36 BP 125 / 83; Pulse 81; Resp 18; Pulse Ox 99% on R/A; rs5 14:45 Body Mass Index 34.33 (90.72 kg, 162.56 cm) as6 14:45 Pain Scale: Adult as6 MDM: 14:39 Patient medically screened. ec2 14:48 Data reviewed: vital signs. ED course: Patient arrives today for evaluation of vaginal ec2 bleeding. Examination remarkable for well-appearing nontoxic dividual is otherwise in no acute distress. Will obtain lab work, urine studies, ultrasound. Evaluate for miscarriage, normal , subchorionic hemorrhage.. 17:19 ED course: Ultrasound shows no IUP. Will discharge home. Return precautions given. This ec2 consistent with the undetectable hCG.. 12/17 14:40 Order name: CBC with Diff; Complete Time: 16:04 ec2 12/17 14:40 Order name: CMP; Complete Time: 16:04 ec2 12/17 14:40 Order name: HCG-Quantitative; Complete Time: 16:04 ec2 12/17 14:40 Order name: Abo/rh Typing; Complete Time: 16:04 ec2 12/17 17:34 Order name: ABO/RH no charge EDMS 12/17 16:13 Order name: Transvaginal Study Probe; Complete Time: 17:19 EDMS Administered Medications: 17:21 Drug: Ketorolac IVP 15 mg IVP once Route: IVP; Site: right antecubital; rs5 17:37 Follow up: Response: No adverse reaction; Pain is decreased rs5 Disposition Summary: 12/18/23 17:19 Discharge Ordered Notes: Location: Home ec2 Condition: Stable ec2 Diagnosis - Abnormal uterine and vaginal bleeding, unspecified ec2 Followup: ec2 - With: Private Physician - When: - Reason: Re-evaluation by your physician Discharge Instructions: - Discharge Summary Sheet ec2 - Abnormal Uterine Bleeding ec2 Forms: - Medication Reconciliation Form ec2 - Antibiotic Education ec2 - Prescription Opioid Use ec2 - Patient Portal Instructions ec2 - Leadership Thank You Letter ec2 Signatures: Dispatcher [employer] Jose Francisco Neal RN RN as6 Cristiano Valdes RN RN rs5 Brad Chua MD MD ec2 Corrections: (The following items were deleted from the chart) 16:13 14:40 Transvaginal Ob+US.RAD.BRZ ordered. EDMS EDMS
--- NOTE | 2023-12-18 17:20 | ER ---
Nurse's Notes [facility] Name: Kelsey Harrell Age: 38 yrs Sex: Female : 1985 Arrival Date: 12/18/2023 Time: 14:33 Bed 6 Private MD: Diagnosis: Abnormal uterine and vaginal bleeding, unspecified Presentation: 12/17 14:45 Chief complaint: Patient states: vaginal bleeding that started today. pt reports having as6 a positive home test but does not know how far along she is. Coronavirus screen: At this time, the client does not indicate any symptoms associated with coronavirus-19. Ebola Screen: No symptoms or risks identified at this time. Initial Sepsis Screen: Does the patient meet any 2 criteria? No. Patient's initial sepsis screen is negative. Does the patient have a suspected source of infection? No. Patient's initial sepsis screen is negative. Risk Assessment: Do you want to hurt yourself or someone else? Patient reports no desire to harm self or others. Onset of symptoms was December 18, 2023. 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 - Infectious Disease History:: Denies. - Social history:: Smoking status: Patient denies any tobacco usage or history of. Screenin:10 [facility] ED Fall Risk Assessment (Adult) History of falling in the last 3 months, db including since admission No falls in past 3 months (0 pts) Confusion or Disorientation No (0 pts) Intoxicated or Sedated No (0 pts) Impaired Gait No (0 pts) Mobility Assist Device Used No (0 pt) Altered Elimination No (0 pt) Score/Fall Risk Level 0 - 2 = Low Risk Oriented to surroundings, Maintained a safe environment. Abuse screen: Denies threats or abuse. Denies injuries from another. Nutritional screening: No deficits noted. Tuberculosis screening: No symptoms or risk factors identified. Assessment: 15:18 Obstetrical Assessment: General assessment: awake and alert, skin warm and dry. db Reassessment: Patient appears in no apparent distress at this time. Patient and/or family updated on plan of care and expected duration. Pain level reassessed. Patient is alert, oriented x 3, equal unlabored respirations, skin warm/dry/pink. General: Appears in no apparent distress. comfortable, Behavior is calm, cooperative. Pain: Denies pain. Neuro: Level of Consciousness is awake, alert, obeys commands, Oriented to person, place, time, situation. Respiratory: Airway is patent Respiratory effort is even, unlabored, Respiratory pattern is regular, symmetrical. : Reports vaginal bleeding that is. 16:25 Reassessment: Patient and/or family updated on plan of care and expected duration. Pain rs5 level reassessed. Patient is alert, oriented x 3, equal unlabored respirations, skin warm/dry/pink. Patient states feeling better. 17:15 Pain: Complains of pain in abdomen Pain currently is 5 out of 10 on a pain scale. rs5 Quality of pain is described as aching, Is intermittent. 17:36 Reassessment: No changes from previously documented assessment. rs5 17:38 Reassessment: Patient and/or family updated on plan of care and expected duration. Pain rs5 level reassessed. Patient is alert, oriented x 3, equal unlabored respirations, skin warm/dry/pink. Patient states feeling better. Vital Signs: 14:45 BP 127 / 80; Pulse 86; Resp 18 S; Temp 98.2(TE); Pulse Ox 100% on R/A; Weight 90.72 kg as6 (R); Height 5 ft. 4 in. (R); Pain 8/10; 16:02 BP 128 / 85; Pulse 77; Resp 18; Pulse Ox 99% ; rs5 17:36 BP 125 / 83; Pulse 81; Resp 18; Pulse Ox 99% on R/A; rs5 14:45 Body Mass Index 34.33 (90.72 kg, 162.56 cm) as6 14:45 Pain Scale: Adult as6 ED Course: 14:33 Patient arrived in ED. rg4 14:34 Brad Chua MD is Attending Physician. ec2 14:42 Radiology exam delayed due to test not completed at this time. aa4 14:45 Arm band placed on. as6 14:48 Triage completed. as6 14:55 Lisa Avila, RN is Primary Nurse. db 15:10 Provided Education on: LABS AND ULTRASOUND. db 15:14 Inserted saline lock: 22 gauge in right antecubital area, using aseptic technique. db Blood collected. 15:15 Patient taken to ultrasound. via wheelchair. db 15:18 Patient has correct armband on for positive identification. Bed in low position. Call db light in reach. Side rails up X 1. Pulse ox on. NIBP on. Pillow given. 16:13 Transvaginal Study Probe In Process Unspecified. EDMS 17:36 No provider procedures requiring assistance completed. rs5 17:38 IV discontinued, intact, bleeding controlled, No redness/swelling at site. Pressure rs5 dressing applied. Administered Medications: 17:21 Drug: Ketorolac IVP 15 mg IVP once Route: IVP; Site: right antecubital; rs5 17:37 Follow up: Response: No adverse reaction; Pain is decreased rs5 Medication: 15:39 VIS not applicable for this client. db Outcome: 17:19 Discharge ordered by . ec2 17:38 Discharged to home ambulatory, rs5 17:38 Condition: stable 17:38 Discharge instructions given to patient, family, Instructed on discharge instructions, follow up and referral plans. Demonstrated understanding of instructions, follow-up care, 17:39 Patient left the ED. rs5 Signatures: Dispatcher [employer] EDDC Jess Horvath aa4 Toshia Roman4 Jose Francisco Saldaña RN RN as6 Lisa Avila, RN RN db Cristiano Valdes RN RN rs5 Brad Chua MD MD ec2 Corrections: (The following items were deleted from the chart) 17:37 17:30 Ketorolac IVP 15 mg IVP in right antecubital rs5 rs5
[2023-12-18] MEDS ORDERED: KETOROLAC 30 MG/ML INJ ONE (17:28)
[2023-12-18 18:30] VITALS: BP 125/83; TEMP 98.2; O2SAT 99
== END 2023-12-18 17:39 | disposition home or self-care (01) ==
LOC: ER 14:33
DX: N93.9 Abnormal uterine and vaginal bleeding, unspecified (principal); Z91.040 Latex allergy status; Z91.048 Other nonmedicinal substance allergy status
CPT/HCPCS: 36415; 76830; 80053; 84702; 85025; 86900; 86901

== ENCOUNTER 2024-07-04 13:43 | Emergency (ER) | payer OTHER ==
--- OUTSIDE RECORDS SUMMARY | 2024-07-04 14:01 | XMS REPORT | Continuity of Care Document ---
Author Name Unknown Address [address] [facility] [address] [place] [address] [facility] Address [address] [facility] [address] [place] [address] Care Team Providers Care Anthropometrist Name Role Phone Adelaida Ramos MD Primary Care Physician [phone] AZALIA MICHEL Attending Clinician Unavailable CURTIS MORLEY Attending Clinician Unavaila NORBERT Humphries Attending Clinician Unavailable NORBERT GAY Attending Clinician Unavailable ABIEL ALFARO Attending Clinician Unavail able ADELAIDA RAMOS Attending Clinician Unavailable ADELAIDA RAMOS Attending Clinician Unavailable MARIE GARZON Attending Clinician Unavailable BETH PARRY Attending Clinician Unavailable GERALD DEL VALLE Attending Clinician Priscilla AZALIA Martines Attending Clinician Unavailable Marie Garzon MD Attending Clinician [phone] Adelaida Ramos MD Attending Clinician [phone] Curtis Morley MD Attending Clinician + [phone] Sophia Ramirez PA-C Attending Clinician +[phone] SOPHIA RAMIREZ Attending Clinician Unavailable Skyler Potter MD Attending Clinician BIA CHAMORRO Attending Clinician Unavailable Bia Mccann Attending Clinician [phone] Azalia Michel MD Attending Clinician +[phone] CARMEN GARCIA Attending Clinician CARMEN Fallon Attending Clinician Carmen Fallon MD Attending Clinician + [phone] Nurse, Raj Deng Attending Clinician Unavailable Doctor Unassigned, [place] Attending Clinician U navailable Sohan VILLA, Beth Attending Clinician [phone] Taylor Cortez MD Attending Clinician NAINA SEGOVIA Attending Clinician Unavailable Beth Rodriguez Attending Clinician +[phone] aTylor Cortez MD Attending Clinician Vanda Morales MD Attending Clinician [phone] Marie Garzon MD Attending Clinician [phone] YAA CHAO Attending Clinician Unavailable YAA CHAO Attending Clinician Unavailable MADELINE SHAY Attending Clinician Unavailable MADELINE SHAY Attending Clinician Unavailable ARGENTINA MCDONALD Attending Clinician Unavailable ARGENTINA MCDONALD Attending Clinician Unavailable Saumya Mg Attending Clinician UnaTAYLOR Collier Attending Clinician Priscilla Curtis Miguel MD Attending Clinician + [phone] Abiel Israel Attending Clinician + Richa Dominguez MD Attending Clinician Unavailable Lab, Ang - Db Attending Clinician Unavailable RICHA DOMINGUEZ Attending Clinician Unavailable Doctor Unassigned, [place] [facility] Attending Clinician Unavailable EZ PALACIO Attending Clinician UnavailEZ Saenz Attending Clinician UnavailELDER Del Valle Attending Clinician UnavailNorbert Dyer MD Attending Clinician [phone] Yvonne Mehta RN Attending Clinician UnavailTacos Burgos MD Attending Clinician +[phone] EAMON CARRASCO Attending Clinician Unavailable EAMON CARRASCO Attending Clinician Unavailable Gisella MCMANUSP, Naina Attending Clinician [phone] HOLLY FREGOSO Attending Clinician Unavailable Radha Andrade Attending Clinician +[phone] Raul Wilkinson MD Attending Clinician [phone] DUNCAN RAMOS Attending Clinician Unavaileyn Ramos MD, Duncan Vidal Attending Clinician [phone] Sabrina Bee MA Attending Clinician Unavailyen e Vtc-Lab Attending Clinician Unavailable Jacob CHONG, Harjinder White Attending Clinician [phone] HARJINDER MEYER Attending Clinician Unavail able Elder Lyons MD Attending Clinician + [phone] MEGHAN MARKHAM Attending Clinician Unavailable Skyler Potter MD Attending Clinician [phone] Holly Herrera Attending Clinician [phone] Shahrzad CHONG, Meghan Attending Clinician +[phone] SKYLER POTTER Attending Clinician Unavail able SKYLER POTTER Attending Clinician Unavail able [facility], [facility] Sleep Lab Attending Clinician UnavailKalli Cordero MD Attending Clinician + [phone] KALLI JEFFERSON Attending Clinician Unavaila KALLI Broderick Attending Clinician Unavaila anne Nava RN, Lana Attending Clinician Unavailable CAMILO CORLEY Attending Clinician Judy Corley MD, Camilo Lobo Attending Clinician [phone] Lab, [facility] [address] Attending Clinician UnaRADHA Morales Attending Clinician Unavailable Ashley Hernandez Attending Clinician +[phone] Catalina Mendez PA-C Attending Clinician +[phone] Byron Berry MD Attending Clinician + [phone] Only, [facility] Test Attending Clinician Unavailable [place] Attending Clinician [phone] Rene Olvera MD Attending Clinician [phone] SAMINA FERRERA Attending Clinician Unavailable Samina Martinez Attending Clinician [phone] Unknown, Attending Attending Clinician Unavailab le Nurse, [facility] Adult Urgent Attending Clinician Unav ailable Therapy, [facility] Covid Infusion Attending Clinician Unavailable Tejinder Valles MD Attending Clinician +[phone] TEJINDER VALLES Attending Clinician Unavailable ASHLEY RAINES Attending Clinician Unavailable Alicja INSERTING OPERATOR, Ever Attending Clinician + UNKNOWN, ATTENDING Attending Clinician Unavailab brandon Venegas MD, Barrington Bellamy Attending Clinician [phone] CATALINA MENDEZ Attending Clinician Unavail able HEATH JOHNSON Attending Clinician Unavailable Biju CHONG, Brady Moreira Attending Clinician [phone] Rj CHONG, Amando Umanzor Attending Clinician [phone] Elena RN, Norma Burch Attending Clinician Unavailab NEW Maya Attending Clinician Unavaila anne [facility], [facility] Urgent Attending Clinician Judy Souza MD, Chan Attending Clinician Unavailable Emeli CROWDER, Cait Attending Clinician [phone] Vineet MCMANUSP, Monika Vogel Attending Clinician EMILY OBRIEN Attending Clinician Unavaila anne Ortega, [facility] Resident Attending Clinician Unavailab brandon Avila MD, Jenny Mantilla Attending Clinician [phone] Taurus Guadalupe MD Attending Clinician +[phone] TAURUS GUADALUPE Attending Clinician Unavailable Tacos Giron DO Attending Clinician +[phone] Only, Pcp Test Attending Clinician Unavailable Emily Fay Attending Clinician + [phone] Aiyana Bojorquez Attending Clinician +[phone] [facility]-Lab Attending Clinician Unavailable Micheline Mitchell MD Attending Clinician [phone] MICHELINE MITCHELL Attending Clinician Unavailable AIYANA NICHOLAS Attending Clinician Unavailable Maki Jacobo PTA Attending Clinic hoang Kang MD, Brady Umanzor Attending Clinician +[phone] Bessie Alexandre RN Attending Clinician Unavailable Fellow, Cardiology Attending Clinician Unavailab Octavio Dickson Attending Clinician [phone] OCTAVIO ANDERSON Attending Clinician Unavailable Rain Ross PT Attending Clinician UnaBRADY Purvis Attending Clinician Unavailable Lucille Banks LPC Attending Clinician +[phone] LUCILLE BANKS Attending Clinician Unavailerna Ace MD, Selena Attending Clinician +[phone] Seb LAWLER, Tony Attending Clinician Unavailab Keri Acosta MD Attending Clinician [phone] Pcp, Patient Does Not Have A Attending Clinician Aric CHONG, Gordy Jane Attending Clinician +[phone] GORDY ELY Attending Clinician Unavailerna Mejia MD, Odilia Smith Attending Clinician +[phone] ODILIA MEJIA Attending Clinician Unavailab brandon Live MD, Elaina Umanzor Attending Clinician +[phone] CHALINO BROWN Attending Clinician Unavailable Bill Luque Attending Clinician UnavailKami Garrido Attending Clinician Unavailable Radha Wilson Attending Clinician Unavailable Reyes Martinez Attending Clinician Unavailable Genesis Bustamante Attending Clinician Unavailable AZALIA MICHEL Admitting Clinician Unavailable CURTIS MORLEY Admitting Clinician UnavailNORBERT Dyer Admitting Clinician Unavailable AZALIA MICHEL Admitting Clinician Unavailable Marilu CHONG, Azalia Admitting Clinician [phone] Norbert Gay MD Admitting Clinician +[phone] SKYLER POTTER Admitting Clinician Unavail able EZ PALACIO Admitting Clinician UnavailCAMILO Pedraza Admitting Clinician UnaCurtis Mcdonough MD Admitting Clinician + [phone] CHALINO BROWN Admitting Clinician Unavailable Payers Payer Name Policy Type Policy Number Effective Date Expirati on Date Source VANIA BECKHAM [id number] 2024 00:00:00 [facility] [id number] 00:00:00 Problems Condition Name Condition Details Condition Category Status Onset Date Resolution Date Last Treatment Date Treating Clinician Comments Source Anal irritation Anal irritation Disease Active 03-14 00:00: 00 [facility] Fissure in ano Fissure in ano Disease Active 8-02 00:00: 00 [facility] Dermatitis of perianal region Dermatitis of perianal region Disease Active 6-04 00:00: 00 [facility] Obesity (BMI 30-39.9) Obesity (BMI 30-39.9) Disease Active 1-29 00:00: 00 [facility] GENNY (generaliz ed anxiety disorder) GENNY (generaliz ed anxiety disorder) Disease Active 8-24 00:00: 00 [facility] PTSD (post-trau matic stress disorder) PTSD (post-trau matic stress disorder) Disease Active 824 00:00: 00 [facility] Persistent depressive disorder Persistent depressive disorder Disease Active 24 00:00: 00 [facility] Gastroesop hageal reflux disease, unspecifie d whether esophagiti s present Gastroesop hageal reflux disease, unspecifie d whether esophagiti s present Disease Active 01-02 00:00: 00 Overview: Formattin g of this note might be different from the original. Added automatic ally from request for surgery [id number] [facility] Dysphagia, pharyngoes ophageal phase Dysphagia, pharyngoes ophageal phase Disease Active 01-02 00:00: 00 Overview: Formattin g of this note might be different from the original. 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 Disease Active 01-01 00:00: 00 [facility] Nausea Nausea Disease Active 01-01 00:00: 00 [facility] AKHIL (obstructi ve sleep apnea) AKHIL (obstructi ve sleep apnea) Disease Active 3-12 00:00: 00 [facility] Sleep difficulti es Sleep difficulti es Disease Active 2- 00:00: 00 [facility] Chronic fatigue Chronic fatigue Disease Active 2- 00:00: 00 [facility] Chronic nausea Chronic nausea Disease Active 2- 00:00: 00 [facility] History of recurrent miscarriag es History of recurrent miscarriag es Disease Active 1- 00:00: 00 [facility] History of recurrent miscarriag es History of recurrent miscarriag es Disease Active 1- 00:00: 00 [facility] Patient desires Patient desires Disease Active 1- 00:00: 00 [facility] Hirsutism Hirsutism Disease Active 2021-08 2- 00:00: 00 [facility] Screen for STD (sexually transmitte d disease) Screen for STD (sexually transmitte d disease) Disease Active 2021-08 2- 00:00: 00 [facility] Vaginal discharge Vaginal discharge Disease Active 2021-08 2-05 00:00: 00 [facility] Missed menses Missed menses Disease Active 2021-08 2-05 00:00: 00 [facility] Pain pelvic Pain pelvic Disease Active 2021-08 2-05 00:00: 00 [facility] History of PCOS History of PCOS Disease Active 2021-08 2-05 00:00: 00 [facility] Irregular menstrual cycle Irregular menstrual cycle Disease Active 2021-08 2-05 00:00: 00 [facility] External hemorrhoid s External hemorrhoid s Disease Active 5-17 00:00: 00 [facility] Grade II internal hemorrhoid s Grade II internal hemorrhoid s Disease Active 5-14 00:00: 00 Overview: Formattin g of this note might be different from the original. Added automatic ally from request for surgery [id number] [facility] Sacroiliit is Sacroiliit is Disease Active 2-11 00:00: 00 Overview: Formattin g of this note might be different from the original. Added automatic ally from request for surgery [id number] [facility] Loose stools Loose stools Disease Active 2019-08 00:00: 00 Overview: Formattin g of this note might be different from the original. Added automatic ally from request for surgery [id number] [facility] Blood in stool Blood in stool Disease Active 2019-08 00:00: 00 Overview: Formattin g of this note might be different from the original. Added automatic ally from request for surgery [id number] [facility] Latex allergy Latex allergy Disease Active 04-17 00:00: 00 [facility] Latex allergy Latex allergy Disease Active 04-17 00:00: 00 [facility] Sciatic nerve disease, right Sciatic nerve disease, right Disease Active 02-10 00:00: 00 [facility] Sciatic nerve disease, right Sciatic nerve disease, right Disease Active 02-10 00:00: 00 [facility] Modified White class B pregestati onal diabetes mellitus Modified White class B pregestati onal diabetes mellitus Disease Active 01-09 00:00: 00 [facility] BMI 35.0-35.9, adult BMI 35.0-35.9, adult Disease Active 12-31 00:00: 00 [facility] Chronic bilateral low back pain without sciatica Chronic bilateral low back pain without sciatica Disease Active 04-02 00:00: 00 [facility] Bronchitis Bronchitis Disease Active [place]: Formattin g of this note might be different from the original. COPD v. asthma [facility] Anxiety Anxiety Disease Active [facility] Fatty liver Fatty liver Disease Active [facility] Pre-eclamp teodora affecting , antepartum Pre-eclamp teodora affecting , antepartum Disease Resolve d 04-24 00:00: 00 2022-06-20 00:00:00 2022-06-20 10:50:20 [facility] 37 weeks gestation of 37 weeks gestation of Disease Resolve d 14 00:00: 00 2017-05-28 00:00:00 2017-05-28 17:08:03 [facility] Two vessel umbilical cord in leon , antepartum Two vessel umbilical cord in leon , antepartum Disease Resolve d 04-26 00:00: 00 2017-05-28 00:00:00 2017-05-28 17:08:04 [facility] Two vessel umbilical cord in leon , antepartum Two vessel umbilical cord in leon , antepartum Disease Resolve d 04-26 00:00: 00 2017-05-28 00:00:00 2017-05-28 17:08:04 [facility] Positive GBS test Positive GBS test Disease Resolve d 905 00:00: 00 2017-05-28 00:00:00 2017-05-28 17:07:29 [facility] High-risk , third trimester High-risk , third trimester Disease Resolve d 5-31 00:00: 00 2017-05-28 00:00:00 2017-05-28 17:07:40 [facility] Pre-eclamp teodora Pre-eclamp teodora Disease Resolve d 11 00:00: 00 2017-04-26 00:00:00 2017-04-26 08:16:58 [facility] 36 weeks gestation of 36 weeks gestation of Disease Resolve d 04-21 00:00: 00 2017-04-26 00:00:00 2017-04-26 08:16:57 [facility] Elevated blood pressure affecting in third trimester, antepartum Elevated blood pressure affecting in third trimester, antepartum Disease Resolve d 04-20 00:00: 00 2017-04-26 00:00:00 2017-04-26 08:16:57 [facility] Costochond ritis, acute Costochond ritis, acute Disease Resolve d 807 00:00: 00 2017-04-26 00:00:00 2017-04-26 08:16:56 [facility] Abnormal ultrasound Abnormal ultrasound Disease Resolve d 621 00:00: 00 2017-04-26 00:00:00 2017-04-26 08:16:49 [facility] DM (diabetes mellitus) DM (diabetes mellitus) Disease Resolve d 2017-04-26 00:00:00 2017-04-26 08:16:45 [facility] Vertigo Vertigo Disease Resolve d 2017-04-26 00:00:00 2017-04-26 08:16:52 [facility] PID (pelvic inflammato ry disease) PID (pelvic inflammato ry disease) Disease Resolve d 2017-04-26 00:00:00 2017-04-26 08:16:55 [facility] 24 weeks gestation of 24 weeks gestation of Disease Resolve d 619 00:00: 00 2017-04-17 00:00:00 2017-04-17 11:32:15 [facility] Urinary tract infection, site not specified Urinary tract infection, site not specified Disease Resolve d 5 00:00: 00 2017-04-17 00:00:00 2017-04-17 11:32:30 [facility] HLD (hyperlipi demia) HLD (hyperlipi demia) Disease Resolve d 04-02 00:00: 00 2017-01-09 00:00:00 2022-02-26 00:17:23 [facility] Type 2 diabetes mellitus without complicati ons Type 2 diabetes mellitus without complicati ons Disease Resolve d 04-02 00:00: 00 2017-01-09 00:00:00 2022-02-26 00:17:23 [facility] control control Disease Resolve d 04-02 00:00: 00 2017-01-09 00:00:00 2017-01-09 14:13:47 [facility] Abdominal pain Abdominal pain Disease Resolve d 11-02 00:00: 00 2017-01-09 00:00:00 2022-02-26 00:07:55 [facility] Allergies, Adverse Reactions, Alerts Allergy Name Allergy Type Status Severity Reaction(s) Onset Date Inactive Date Treating Clinician Comments Source BUSPIRON E DRUG INGREDI Active High Other-Cmnt 14 00:00: 00 [facility] Buspiron e Propensi ty to adverse reaction s Active Other - See comments 10-24 00:00: 00 Can't sleep, cannot focus, confusion [facility] Buspiron e Drug Intolera nce Active Other - See comments 10-24 00:00: 00 Can't sleep, cannot focus, confusion [facility] Latex Drug Allergy Active Rash 12-06 00:00: 00 [facility] Latex Propensi ty to adverse reaction s Active Rash 12-06 00:00: 00 [facility] LATEX DRUG INGREDI Active Rash 12-06 00:00: 00 [facility] Social History Social Habit Start Date Stop Date Quantity Comments Source Gender identity [facility] Alcoholic beverage intake 2024-06-25 00:00:00 2024-06-25 00:00:00 Current non-drinker of alcohol (finding) [facility] Tobacco use and exposure 2024-03-19 00:00:00 2024-03-19 00:00:00 User of smokeless tobacco [facility] History of Social function 2024-01-23 00:00:00 2024-01-23 00:00:00 [facility] Cigarettes smoked current (pack per day) - Reported 2024-01-23 00:00:00 2024-01-23 00:00:00 [facility] Cigarette pack-years 2024-01-23 00:00:00 2024-01-23 00:00:00 [facility] Alcohol intake 2023-10-15 00:00:00 2023-10-15 00:00:00 Current non-drinker of alcohol (finding) [facility] Exposure to SARS-CoV-2 (event) 2022-12-30 00:00:00 2023-01-09 09:52:00 Not sure [facility] Tobacco Comment 2022-05-16 00:00:00 2022-05-16 00:00:00 vapes [facility] History of tobacco use 2016-12-31 00:00:00 2020-07-20 00:00:00 Smokes tobacco daily [facility] Sex assigned at 1985 00:00:00 1985 00:00:00 [facility] Smoking Status Start Date Stop Date Source Smokes tobacco daily 2024-03-19 00:00:00 [facility] Ex-smoker 2024-01-23 00:00:00 2024-01-23 00:00:00 [facility] Occasional tobacco smoker 2020-06-30 00:00:00 [facility] Medications Ordered Medication Name Filled Medication Name Start Date Stop Date Current Medication? Ordering Clinician Indication Dosage Frequency Signature (SIG) Comments Components Source gabapentin 600 mg tablet 2023-08 00:00: 00 Yes [id number] 600mg Take 1 tablet by mouth every morning and evening. [facility] gabapentin 800 mg tablet 2023-08 00:00: 00 Yes [id number] 800mg Take 1 tablet by mouth at bedtime. [facility] tiZANidine 4 mg tablet 2023-08 00:00: 00 Yes [id number] TAKE 1 TABLET BY MOUTH THE MORNING, AND 1 TABLET BY MOUTH IN THE AFTERNOON, AND 2 TABLETS AT BEDTIME [facility] MECLIZINE 25 mg tablet 2023-08 00:00: 00 Yes [id number] TAKE 1 TABLET BY MOUTH EVERY 8 HOURS NEEDED [facility] PROMETHAZIN E 12.5 mg tablet 2023-08 00:00: 00 Yes [id number] TAKE 2 TABLETS BY MOUTH EVERY 6 HOURS NEEDED FOR NAUSEA AND VOMITING [facility] tirzepatide (MOUNJARO) 15 mg/0.5 mL subcutaneou s injection 05-05 00:00: 00 Yes [id number] 15mg inject 15 mg under the skin weekly. [facility] Insulin Glargine (LANTUS SOLOSTAR U-100 INSULIN) 100 unit/mL (3 mL) injection 05-05 00:00: 00 Yes [id number] 12U inject 12 Units under the skin in the morning. [facility] Insulin [place], Disposable, (BD INSULIN PEN NEEDLE UF) 31 gauge x 5/16" Ndle 05-05 00:00: 00 Yes [id number] Use as directed to administer [facility] fluticasone propionate 50 mcg/actuati on nasal spray 04-21 00:00: 00 Yes [id number] 1{spray } Use 1 [place] in each nostril in the morning. [facility] meclizine 25 mg tablet 04-21 00:00: 00 06-24 00:00 :00 No [id number] TAKE 1 TABLET BY MOUTH EVERY 8 HOURS NEEDED [facility] proMETHazin e 12.5 mg tablet 04-21 00:00: 00 05-21 00:00 :00 No [id number] TAKE 2 TABLETS BY MOUTH EVERY 6 HOURS NEEDED FOR NAUSEA AND VOMITING [facility] metroNIDAZO LE (FLAGYL) 500 mg tablet 04-18 00:00: 00 Yes [id number] 500mg Take 1 tablet by mouth every 12 (twelve) hours. [facility] fluconazole (DIFLUCAN) 150 mg tablet 04-18 00:00: 00 Yes [id number] 150mg Take 1 tablet by mouth every other day. [facility] tirzepatide (MOUNJARO) 12.5 mg/0.5 mL subcutaneou s injection 04-16 00:00: 00 05-05 00:00 :00 No [id number] 12.5mg inject 12.5 mg under the skin weekly. [facility] oxyCODONE 5 mg immediate release tablet 04-05 00:00: 00 04-13 04:59 :00 No [id number] 5mg Take 1 tablet by mouth every 6 (six) hours as needed for Pain (scale 7-10) for up to 7 days. Indication s: acute pain [facility] celecoxib 100 mg capsule 04-04 00:00: 00 Yes [id number] TAKE 1 CAPSULE BY MOUTH IN THE MORNING AND 1 IN THE EVENING WITH MEALS [facility] tiZANidine 4 mg tablet 03-26 00:00: 00 Yes [id number] TAKE 1 TABLET BY MOUTH THE MORNING, AND 1 TABLET BY MOUTH IN THE AFTERNOON, AND 2 TABLETS AT BEDTIME [facility] MECLIZINE 25 mg tablet 03-26 00:00: 00 04-21 00:00 :00 No [id number] TAKE 1 TABLET BY MOUTH EVERY 8 HOURS NEEDED [facility] celecoxib 100 mg capsule 03-26 00:00: 00 04-04 00:00 :00 No [id number] TAKE 1 CAPSULE BY MOUTH IN THE MORNING AND 1 IN THE EVENING WITH MEALS [facility] oxyCODONE 5 mg immediate release tablet 03-25 00:00: 00 04-02 04:59 :00 No [id number] 5mg Take 1 tablet by mouth every 6 (six) hours as needed for Pain (scale 7-10) for up to 7 days. Indication s: acute pain [facility] ondansetron (ZOFRAN (PF)) injection 4 mg 03-24 17:47: 31 03-24 21:58 :06 No 4mg [facility] HYDROmorpho ne (PF) (DILAUDID) injection 0.25 mg 03-24 17:21: 41 03-24 21:58 :06 No .25mg 0.25 mg, Slow IV Push, Q5MIN PRN, 4 doses, Starting on Sun03/24/24 at 1221, Until Sun03/24/24 at 1658, Routine, Pain (scale 4-6), PACU, Is this medication approved by a Faculty level provider? Yes, hourly team members approving Restricted medication : PACU RECOVERY [facility] ondansetron (ZOFRAN (PF)) injection 4 mg 03-24 17:21: 41 03-24 21:58 :06 No 4mg 4 mg, Slow IV Push, PRN, 1 dose, Starting on Sun03/24/24 at 1221, Until Sun03/24/24 at 1658, Routine, Nausea and Vomiting (N/V), PACU [facility] lactated ringers IV infusion 1,000 mL 03-24 14:00: 00 03-24 14:38 :00 No 1000mL at 42 mL/hr, 1,000 mL, IV Infusion, ONCE, 1 dose, On Sun03/24/24 at 0900, Routine, DSU Pre-op [facility] celecoxib (CELEBREX) capsule 200 mg 03-24 13:55: 03 03-24 14:38 :00 No 200mg 200 mg, Oral, O.R. HOLDING ONCE, 1 dose, Starting on Sun03/24/24 at 0855, Until Sun03/24/24 at 0938, Routine, Pain, DSU Pre-op [facility] gabapentin (NEURONTIN) tablet 600 mg 03-24 13:55: 03 03-24 14:38 :00 No 600mg 600 mg, Oral, O.R. HOLDING ONCE, 1 dose, Starting on Sun03/24/24 at 0855, Until Sun03/24/24 at 0938, Routine, Surgery/Pr ocedure, DSU Pre-op [facility] acetaminoph en (TYLENOL) tablet 1,000 mg 03-24 13:55: 03 03-24 14:37 :00 No 1000mg 1,000 mg, Oral, O.R. HOLDING ONCE, 1 dose, Starting on Sun03/24/24 at 0855, Until Sun03/24/24 at 0937, Routine, Surgery / Procedure, DSU Pre-op [facility] gabapentin 300 mg capsule 03-24 00:00: 00 04-09 04:59 :00 No [id number] 300mg Take 1 capsule by mouth every 8 (eight) hours for 15 days. For pain scale 1-3 [facility] acetaminoph en 325 mg tablet 03-24 00:00: 00 04-09 04:59 :00 No [id number] 975mg Take 3 tablets by mouth every 8 (eight) hours for 15 days. [facility] ibuprofen 600 mg tablet 03-24 00:00: 00 04-09 04:59 :00 No [id number] 600mg TAKE 1 TABLET BY MOUTH EVERY 8 HOURS FOR 15 DAYS [facility] traMADoL 50 mg tablet 03-24 00:00: 00 04-01 04:59 :00 No [id number] 50mg Take 1 tablet by mouth every 8 (eight) hours as needed (pain) for up to 7 days. Indication s: acute pain [facility] FENTanyl PF (SUBLIMAZE (PF)) injection 03-20 18:31: 57 03-20 18:31 :57 No TITRATE - FOR PROCEDURE USE, 1 dose, Starting on Vicenta 03/20/24 at 1331, Until Vicenta 03/20/24 at 1331, Routine [facility] FENTanyl PF (SUBLIMAZE (PF)) injection 03-20 18:27: 16 03-20 18:27 :16 No TITRATE - FOR PROCEDURE USE, 1 dose, Starting on Vicenta 03/20/24 at 1327, Until Vicenta 03/20/24 at 1327, Routine [facility] lidocaine 1% (PF) (XYLOCAINE) injection 20 mL 03-20 18:25: 00 03-20 18:26 :00 No [id number] 20mL 20 mL, Infiltrati on, ONCE, 1 dose, On Vicenta 03/20/24 at 1330, Routine [facility] iohexoL (OMNIPAQUE 300-50 mL)) injection 3 mL 03-20 18:25: 00 03-20 18:26 :00 No [id number] 3mL 3 mL, Injection, ONCE, 1 dose, On Vicenta 03/20/24 at 1330, Routine [facility] triamcinolo ne acetonide (KENALOG) injection 80 mg 03-20 18:25: 00 03-20 18:26 :00 No [id number] 80mg 80 mg, Infiltrati on, ONCE, 1 dose, On Vicenta 03/20/24 at 1330, Routine [facility] bupivacaine (preserv free) (SENSORCAIN E MPF) 0.25 % (2.5 mg/mL) injection 4 mL 03-20 18:25: 00 03-20 18:26 :00 No [id number] 4mL 4 mL, Infiltrati on, ONCE, 1 dose, On Vicenta 24 at 1330, Routine [facility] midazolam (VERSED) injection 03-20 18:21: 50 03-20 18:21 :50 No TITRATE - FOR PROCEDURE USE, 1 dose, Starting on Vicenta 824 at 1321, Until Vicenta 824 at 1321, Routine [facility] FENTanyl PF (SUBLIMAZE (PF)) injection 03-20 18:20: 23 03-20 18:20 :23 No TITRATE - FOR PROCEDURE USE, 1 dose, Starting on Vicenta 824 at 1320, Until Vicenta 824 at 1320, Routine [facility] FENTanyl PF (SUBLIMAZE (PF)) injection 03-20 18:19: 20 03-20 18:19 :20 No TITRATE - FOR PROCEDURE USE, 1 dose, Starting on Vicenta 24 at 1319, Until Vicenta 824 at 1319, Routine [facility] midazolam (VERSED) injection 03-20 18:09: 00 03-20 18:09 :00 No TITRATE - FOR PROCEDURE USE, 1 dose, Starting on Vicenta 824 at 1309, Until Vicenta 824 at 1309, Routine [facility] lactated ringers IV infusion 500 mL 03-20 17:45: 00 03-21 05:44 :00 No [id number] 500mL [facility] PROMETHAZIN E 12.5 mg tablet 03-19 00:00: 00 04-21 00:00 :00 No [id number] TAKE 2 TABLETS BY MOUTH EVERY 6 HOURS NEEDED FOR NAUSEA AND VOMITING [facility] MECLIZINE 25 mg tablet 03-19 00:00: 00 03-26 00:00 :00 No [id number] TAKE 1 TABLET BY MOUTH EVERY 8 HOURS NEEDED [facility] gabapentin 800 mg tablet 03-14 00:00: 00 03-24 00:00 :00 No [id number] 800mg TAKE 1 TABLET BY MOUTH AT BEDTIME [facility] celecoxib 100 mg capsule 03-14 00:00: 00 03-24 00:00 :00 No [id number] TAKE 1 CAPSULE BY MOUTH IN THE MORNING AND 1 IN THE EVENING WITH MEALS [facility] MOUNJARO 15 mg/0.5 mL subcutaneou s injection 03-12 00:00: 00 04-16 00:00 :00 No [facility] gabapentin 600 mg tablet 03-05 00:00: 00 Yes 600mg Take 1 tablet by mouth every morning and evening. [facility] proMETHazin e 12.5 mg tablet 02-27 00:00: 00 03-19 00:00 :00 No [id number] 25mg Take 2 tablets by mouth every 6 (six) hours as needed for nausea vomitting [facility] meclizine 25 mg tablet 02-27 00:00: 00 03-19 00:00 :00 No [id number] 25mg Take 1 tablet by mouth every 8 (eight) hours as needed. [facility] Blood-Gluco se Sensor (DEXCOM G7 SENSOR) Lisa 02-12 00:00: 00 03-24 00:00 :00 No [id number] Use as directed every 10 days [facility] MECLIZINE 25 mg tablet 02-11 00:00: 00 02-26 00:00 :00 No [id number] TAKE 1 TABLET BY MOUTH EVERY 8 HOURS NEEDED [facility] cholecalcif chris, vitamin D3, (VITAMIN D3) 25 mcg (1,000 unit) tablet 02-07 12:56: 00 Yes 1000U Take 1 tablet by mouth in the morning. [facility] Vitamin B-12 1,000 mcg tablet 02-07 12:56: 00 Yes 1000ug Take 1 tablet by mouth in the morning. [facility] lidocaine HCL (ASPERCREME , LIDOCAINE HCL,) 4 % Crea 02-07 00:00: 00 Yes [id number] 1{each} Apply to area(s) in the morning and in the evening. [facility] Miscellaneo us Medical Supply Kit 02-07 00:00: 00 Yes [id number] Use as directed [facility] BABY ASPIRIN ORAL 02-05 13:42: 47 Yes Take by mouth. [facility] atorvastati n 20 mg tablet 02-03 00:00: 00 Yes [id number] 20mg Take 1 tablet by mouth at bedtime. [facility] metFORMIN 1,000 mg tablet 02-03 00:00: 00 Yes [id number] 1000mg Take 1 tablet by mouth in the morning and 1 tablet in the evening. Take with meals. [facility] empaglifloz in (JARDIANCE) 25 mg Tab tablet 02-03 00:00: 00 05-05 00:00 :00 No [id number] 25mg Take 1 tablet by mouth every morning. [facility] pioglitazon e 30 mg tablet 02-03 00:00: 00 05-05 00:00 :00 No [id number] 30mg Take 1 tablet by mouth in the morning. [facility] tirzepatide (MOUNJARO) 12.5 mg/0.5 mL subcutaneou s injection 02-03 00:00: 00 04-16 00:00 :00 No [id number] 12.5mg inject 12.5 mg under the skin weekly. [facility] gabapentin 600 mg tablet 02-03 00:00: 00 03-14 00:00 :00 No 600mg Take 1 tablet by mouth every morning and evening. [facility] PROMETHAZIN E 12.5 mg tablet 02-03 00:00: 00 02-26 00:00 :00 No [id number] TAKE 2 TABLETS BY MOUTH EVERY 6 HOURS NEEDED FOR NAUSEA AND VOMITING [facility] Blood-Gluco se Sensor (FREESTYLE ANTOINETTE 3 SENSOR) Lisa 02-03 00:00: 00 02-12 00:00 :00 No [id number] Use as directed every 2 weeks [facility] Blood-Gluco se Meter,Ryder blake (FREESTYLE ANTOINETTE 3 READER) Misc 02-03 00:00: 00 02-04 04:59 :00 No [id number] 1{each} inject 1 Each under the skin once now for 1 dose. Use as directed with sensor [facility] escitalopra m oxalate 20 mg tablet 01-22 00:00: 00 Yes [id number] 20mg Take 1 tablet by mouth in the morning. [facility] fluticasone propionate 50 mcg/actuati on nasal spray 01-22 00:00: 00 04-21 00:00 :00 No [id number] 1{spray } Use 1 [place] in each nostril in the morning. [facility] atorvastati n 20 mg tablet 01-22 00:00: 00 02-03 00:00 :00 No [id number] 20mg Take 1 tablet by mouth at bedtime. [facility] nystatin 100,000 unit/gram powder 01-14 00:00: 00 Yes [id number] Apply to area(s) 2 (two) times daily. [facility] Zinc Oxide 10 % ointment 01-14 00:00: 00 03-24 00:00 :00 No [id number] Apply to area(s) 2 (two) times daily. [facility] MECLIZINE 25 mg tablet 01-14 00:00: 00 02-11 00:00 :00 No [id number] TAKE 1 TABLET BY MOUTH EVERY 8 HOURS NEEDED [facility] tiZANidine 4 mg tablet 01-13 00:00: 00 03-26 00:00 :00 No [id number] TAKE 1 TABLET BY MOUTH THE MORNING, AND 1 TABLET BY MOUTH IN THE AFTERNOON, AND 2 TABLETS AT BEDTIME [facility] atorvastati n 20 mg tablet 5-15 00:00: 00 01-22 00:00 :00 No [id number] 20mg Take 1 tablet by mouth at bedtime. [facility] tirzepatide 15 mg/0.5 mL subcutaneou s injection 08 00:00: 00 02-03 00:00 :00 No [id number] 15mg inject 15 mg under the skin weekly. [facility] PROMETHAZIN E 12.5 mg tablet 12-03 00:00: 00 02-03 00:00 :00 No [id number] TAKE 2 TABLETS BY MOUTH EVERY 6 HOURS NEEDED FOR NAUSEA AND VOMITING [facility] MECLIZINE 25 mg tablet 12-03 00:00: 00 01-14 00:00 :00 No [id number] TAKE 1 TABLET BY MOUTH EVERY 8 HOURS NEEDED [facility] mupirocin 2 % ointment 4 00:00: 00 03-24 00:00 :00 No APPLY TO AFFECTED AREA FOUR TIMES A DAY [facility] ESCITALOPRA M OXALATE 20 mg tablet 11-05 00:00: 00 01-22 00:00 :00 No [id number] 20mg TAKE 1 TABLET BY MOUTH IN THE MORNING [facility] PROMETHAZIN E 12.5 mg tablet - 00:00: 00 12-03 00:00 :00 No [id number] TAKE 2 TABLETS BY MOUTH EVERY 6 HOURS NEEDED FOR NAUSEA AND VOMITING [facility] MECLIZINE 25 mg tablet - 00:00: 00 12-03 00:00 :00 No [id number] TAKE 1 TABLET BY MOUTH EVERY 8 HOURS NEEDED [facility] MECLIZINE 25 mg tablet 3-05 00:00: 00 11-05 00:00 :00 No [id number] TAKE 1 TABLET BY MOUTH EVERY 8 HOURS NEEDED [facility] insulin NPH (NOVOLIN N NPH U-100 INSULIN) 100 unit/mL injection 10-14 15:10: 13 10-14 00:00 :00 No 5U inject 5 Units under the skin every morning and evening. [facility] insulin NPH (NOVOLIN N NPH U-100 INSULIN) 100 unit/mL injection 10-14 00:00: 00 05-05 00:00 :00 No [id number] 5U inject 5 Units under the skin every morning and evening. [facility] empaglifloz in (JARDIANCE) 25 mg Tab tablet 10-14 00:00: 00 02-03 00:00 :00 No [id number] 25mg Take 1 tablet by mouth every morning. [facility] metFORMIN 1,000 mg tablet 10-14 00:00: 00 02-03 00:00 :00 No [id number] 1000mg Take 1 tablet by mouth in the morning and 1 tablet in the evening. Take with meals. [facility] pioglitazon e 30 mg tablet 10-14 00:00: 00 02-03 00:00 :00 No [id number] 30mg Take 1 tablet by mouth in the morning. [facility] tirzepatide (MOUNJARO) 12.5 mg/0.5 mL subcutaneou s injection 10-14 00:00: 00 02-03 00:00 :00 No [id number] 12.5mg inject 12.5 mg under the skin weekly. [facility] PROMETHAZIN E 12.5 mg tablet 09-21 00:00: 00 11-05 00:00 :00 No [id number] TAKE 2 TABLETS BY MOUTH EVERY 6 HOURS NEEDED FOR NAUSEA AND VOMITING [facility] MECLIZINE 25 mg tablet 09-21 00:00: 00 10-15 00:00 :00 No [id number] TAKE 1 TABLET BY MOUTH EVERY 8 HOURS NEEDED [facility] FENTanyl PF (SUBLIMAZE (PF)) injection 09-12 20:56: 10 09-12 20:56 :10 No Slow IV Push, TITRATE - FOR PROCEDURE USE, 1 dose, Starting on Sun09/12/23 at 1456, Until Sun09/12/23 at 1456, Routine [facility] midazolam (VERSED) injection 09-12 20:46: 26 09-12 20:46 :26 No IV Push, TITRATE - FOR PROCEDURE USE, 1 dose, Starting on Sun09/12/23 at 1446, Until Sun09/12/23 at 1446, Routine [facility] FENTanyl PF (SUBLIMAZE (PF)) injection 09-12 20:40: 07 09-12 20:40 :07 No Slow IV Push, TITRATE - FOR PROCEDURE USE, 1 dose, Starting on Sun09/12/23 at 1440, Until Sun09/12/23 at 1440, Routine [facility] FENTanyl PF (SUBLIMAZE (PF)) injection 09-12 20:34: 23 09-12 20:34 :23 No Slow IV Push, TITRATE - FOR PROCEDURE USE, 1 dose, Starting on Sun09/12/23 at 1434, Until Sun09/12/23 at 1434, Routine [facility] lidocaine 1% (PF) (XYLOCAINE) injection 10 mL 09-12 20:30: 00 09-12 20:34 :00 No [id number] 10mL [facility] triamcinolo ne acetonide (KENALOG) injection 80 mg 09-12 20:30: 00 09-12 20:35 :00 No [id number] 80mg [facility] sodium bicarbonate 1 mEq/mL (8.4 %) injection 1 mL 09-12 20:30: 00 09-12 20:34 :00 No [id number] 1mL [facility] bupivacaine (preserv free) (SENSORCAIN E MPF) 0.25 % (2.5 mg/mL) injection 4 mL 09-12 20:30: 00 09-12 20:33 :00 No [id number] 4mL [facility] iohexoL (OMNIPAQUE 300-50 mL)) injection 1 mL 09-12 20:30: 00 09-12 20:33 :00 No [id number] 1mL [facility] midazolam (VERSED) injection 09-12 20:29: 00 09-12 20:29 :00 No IV Push, TITRATE - FOR PROCEDURE USE, 1 dose, Starting on Sun09/12/23 at 1429, Until Sun09/12/23 at 1429, Routine [facility] lactated ringers IV infusion 500 mL 09-12 20:15: 00 09-12 20:25 :00 No [id number] 500mL [facility] celecoxib 100 mg capsule 08-24 00:00: 00 03-14 00:00 :00 No [id number] TAKE 1 CAPSULE BY MOUTH IN THE MORNING AND 1 IN THE EVENING WITH MEALS [facility] PROMETHAZIN E 12.5 mg tablet 08-24 00:00: 00 09-21 00:00 :00 No [id number] TAKE 2 TABLETS BY MOUTH EVERY 6 HOURS NEEDED FOR NAUSEA AND VOMITING [facility] PROMETHAZIN E 12.5 mg tablet 2022-08 00:00: 00 Yes [id number] TAKE 2 TABLETS BY MOUTH EVERY 6 HOURS NEEDED FOR NAUSEA AND VOMITING [facility] tirzepatide (MOUNJARO) 10 mg/0.5 mL PnIj 2022-08 2-12 00:00: 00 10-14 00:00 :00 No [id number] 10mg inject 10 mg under the skin weekly. [facility] glyBURIDE 5 mg tablet 2022-08 1-16 00:00: 00 10-14 00:00 :00 No [id number] TAKE 1 TABLET BY MOUTH TWICE DAILY . APPOINTMEN T REQUIRED FOR FUTURE REFILLS [facility] PROMETHAZIN E 12.5 mg tablet 2022-08 1-14 00:00: 00 08-09 00:00 :00 No [id number] TAKE 2 TABLETS BY MOUTH EVERY 6 HOURS NEEDED FOR NAUSEA AND VOMITING [facility] GABAPENTIN 600 mg tablet 2022-08 00:00: 00 02-03 00:00 :00 No [id number] 600mg TAKE 1 TABLET BY MOUTH IN THE MORNING AND 1 IN THE EVENING [facility] empaglifloz in (JARDIANCE) 25 mg Tab 2022-08 00:00: 00 10-14 00:00 :00 No [id number] 25mg Take 1 tablet by mouth every morning. [facility] metFORMIN 1,000 mg tablet 2022-08 00:00: 10-14 00:00 :00 No [id number] 1000mg Take 1 tablet by mouth in the morning and 1 tablet in the evening. Take with meals. [facility] pioglitazon e 30 mg tablet 2022-08 00:00: 00 10-14 00:00 :00 No [id number] 30mg Take 1 tablet by mouth in the morning. [facility] tirzepatide (MOUNJARO) 10 mg/0.5 mL PnIj 2022-0830 00:00: 00 07-20 00:00 :00 No [id number] 10mg inject 10 mg under the skin weekly. [facility] atorvastati n 20 mg tablet 2022-08 0 00:00: 00 12-25 00:00 :00 No [id number] 20mg Take 1 tablet by mouth at bedtime. [facility] meclizine 25 mg tablet 2022-08 0-25 00:00: 00 09-21 00:00 :00 No [id number] TAKE 1 TABLET BY MOUTH EVERY 8 HOURS NEEDED [facility] PROMETHAZIN E 12.5 mg tablet 2022-08 0-20 00:00: 00 06-26 00:00 :00 No [id number] TAKE 2 TABLETS BY MOUTH EVERY 6 HOURS NEEDED FOR NAUSEA AND VOMITING [facility] lidocaine 1% (PF) (XYLOCAINE) injection 10 mL 05-11 19:45: 00 05-11 18:46 :00 No [id number] 10mL [facility] bupivacaine (preserv free) (SENSORCAIN E MPF) 0.25 % (2.5 mg/mL) injection 4 mL 05-11 19:45: 00 05-11 18:46 :00 No [id number] 4mL [facility] triamcinolo ne acetonide (KENALOG) injection 40 mg 05-11 19:30: 00 05-11 18:47 :00 No [id number] 40mg [facility] FENTanyl PF (SUBLIMAZE (PF)) injection 05-11 18:56: 34 05-11 18:56 :34 No Slow IV Push, TITRATE - FOR PROCEDURE USE, 1 dose, Starting on Sun05/11/23 at 1356, Until Sun05/11/23 at 1356, Routine [facility] FENTanyl PF (SUBLIMAZE (PF)) injection 05-11 18:45: 00 05-11 18:45 :00 No Slow IV Push, TITRATE - FOR PROCEDURE USE, 1 dose, Starting on Sun05/11/23 at 1345, Until Sun05/11/23 at 1345, Routine [facility] FENTanyl PF (SUBLIMAZE (PF)) injection 05-11 18:43: 00 05-11 18:43 :00 No Slow IV Push, TITRATE - FOR PROCEDURE USE, 1 dose, Starting on Sun05/11/23 at 1343, Until Sun05/11/23 at 1343, Routine [facility] midazolam (VERSED) injection 05-11 18:38: 00 05-11 18:38 :00 No IV Push, TITRATE - FOR PROCEDURE USE, 1 dose, Starting on Sun05/11/23 at 1338, Until Sun05/11/23 at 1338, Routine [facility] ondansetron (ZOFRAN (PF)) injection 05-11 18:37: 00 05-11 18:37 :00 No TITRATE - FOR PROCEDURE USE, 1 dose, Starting on Sun05/11/23 at 1337, Until Sun05/11/23 at 1337, Routine [facility] lactated ringers IV infusion 500 mL 05-11 18:15: 00 05-11 18:15 :00 No [id number] 500mL [facility] fluconazole 200 mg tablet 05-08 00:00: 00 03-24 00:00 :00 No [id number] 200mg Take 1 tablet by mouth every 3 (three) days. [facility] ampicillin 500 mg capsule 05-08 00:00: 05-16 04:59 :00 No [id number] 500mg Take 1 capsule by mouth every 6 (six) hours for 7 days. [facility] glyBURIDE 5 mg tablet 05-07 00:00: 00 06-11 00:00 :00 No [id number] TAKE 1 TABLET BY MOUTH TWICE DAILY . APPOINTMEN T REQUIRED FOR FUTURE REFILLS [facility] NOVOLIN N NPH U-100 INSULIN 100 unit/mL injection 05-03 00:00: 00 10-14 00:00 :00 No [id number] INJECT 10 UNITS UNDER THE SKIN IN THE MORNING. INJECT ONLY IF FASTING BLOOD SUGAR GREATER THAN 150 [facility] PROMETHAZIN E 12.5 mg tablet 04-10 00:00: 00 06-01 00:00 :00 No [id number] TAKE 2 TABLETS BY MOUTH EVERY 6 HOURS NEEDED FOR NAUSEA AND VOMITING [facility] lactated ringers IV infusion 1,000 mL 04-09 14:45: 00 Yes 1000mL at 100 mL/hr, 1,000 mL, IV Infusion, CONTINUOUS , Starting on Sun04/09/23 at 0945, Until Discontinu ed, Routine, PACU [facility] ondansetron (ZOFRAN (PF)) injection 4 mg 04-09 14:30: 37 Yes 4mg 4 mg, Slow IV Push, PRN, 1 dose, Starting on Sun04/09/23 at 0930, Until Discontinu ed, Routine, Nausea and Vomiting (N/V), PACU [facility] lactated ringers IV infusion 04-09 13:54: 00 04-09 14:16 :45 No IV Infusion, CONTINUOUS PRN, Starting on Sun04/09/23 at 0854, Until Sun04/09/23 at 0916, Routine, Intra-op [facility] propofoL IV infusion 04-09 13:54: 00 04-09 14:16 :45 No IV Infusion, ONCE INTRA PROCEDURE, Starting on Sun04/09/23 at 0854, Until Sun04/09/23 at 0916, Routine, Intra-op [facility] lidocaine 2% (XYLOCAINE) 20 mg/mL (2 %) injection 04-09 13:54: 00 04-09 14:16 :45 No Intravenou s, ONCE INTRA PROCEDURE, Starting on Sun04/09/23 at 0854, Until Sun04/09/23 at 0916, Routine, Intra-op [facility] midazolam (VERSED) injection 04-09 13:54: 00 04-09 14:16 :45 No IV Push, ONCE INTRA PROCEDURE, Starting on Sun04/09/23 at 0854, Until Sun04/09/23 at 0916, Routine, Intra-op [facility] lactated ringers IV infusion 1,000 mL 04-09 12:45: 00 04-09 13:04 :00 No 1000mL at 42 mL/hr, 1,000 mL, IV Infusion, ONCE, 1 dose, On Sun04/09/23 at 0745, Routine, Endo Pre-op [facility] semaglutide (OZEMPIC) 2 mg/dose (8 mg/3 mL) PnIj 04-03 00:00: 00 06-11 00:00 :00 No [id number] INJECT TWO (2) MG UNDER THE SKIN ONCE WEEKLY. [facility] NOVOLIN N NPH U-100 INSULIN 100 unit/mL injection 03-27 00:00: 05-03 00:00 :00 No [id number] INJECT 10 UNITS UNDER THE SKIN IN THE MORNING. INJECT ONLY IF FASTING BLOOD SUGAR GREATER THAN 150 [facility] JARDIANCE 25 mg Tab 03-14 00:00: 00 06-11 00:00 :00 No [id number] TAKE 1 TABLET BY MOUTH ONCE DAILY IN THE MORNING [facility] metformin ER 500 mg 24 hr tablet 03-14 00:00: 06-11 00:00 :00 No [id number] TAKE 2 TABLETS BY MOUTH IN THE MORNING AND TAKE 3 TABLETS IN THE EVENING( NEEDS APPOINTMEN T) [facility] gabapentin 800 mg tablet 03-13 00:00: 00 03-14 00:00 :00 No [id number] 800mg Take 1 tablet by mouth at bedtime. [facility] Miscellaneo us Medical Supply Kit 03-13 00:00: 00 02-06 00:00 :00 No [id number] Use as directed [facility] tiZANidine 4 mg tablet 03-13 00:00: 00 01-13 00:00 :00 No [id number] Take 1 tablet morning and afternoon, 2 tablets at bedtime [facility] celecoxib 100 mg capsule 03-13 00:00: 00 08-24 00:00 :00 No [id number] 100mg Take 1 capsule by mouth in the morning and 1 capsule in the evening. Take with meals. [facility] gabapentin 600 mg tablet 03-13 00:00: 00 06-15 00:00 :00 No [id number] 600mg Take 1 tablet by mouth in the morning and 1 tablet in the evening. [facility] NuvaRing 0.12-0.015 mg/24 hr vaginal insert 03-08 00:00: 00 09-10 00:00 :00 No [id number] 1{each} Insert 1 Each into vagina once every month. Insert vaginally and leave in place for 3 consecutiv e weeks, then remove for 1 week. [facility] escitalopra m oxalate (LEXAPRO) 20 mg tablet 03-06 00:00: 00 11-05 00:00 :00 No [id number] 20mg Take 1 tablet by mouth in the morning. [facility] meclizine 25 mg tablet 03-06 00:00: 00 06-06 00:00 :00 No [id number] TAKE 1 TABLET BY MOUTH EVERY 8 HOURS NEEDED [facility] atorvastati n 20 mg tablet 03-06 00:00: 06-06 00:00 :00 No [id number] 20mg Take 1 tablet by mouth at bedtime. [facility] proMETHazin e 12.5 mg tablet 03-06 00:00: 00 04-10 00:00 :00 No [id number] TAKE 2 TABLETS BY MOUTH EVERY 6 HOURS NEEDED FOR NAUSEA AND VOMITING [facility] semaglutide (OZEMPIC) 2 mg/dose (8 mg/3 mL) Ij 03-06 00:00: 00 04-03 00:00 :00 No [id number] INJECT 2 MG UNDER THE SKIN WEEKLY [facility] OZEMPIC 2 mg/dose (8 mg/3 mL) Ij 02-27 00:00: 00 03-06 00:00 :00 No [id number] INJECT 2 MG UNDER THE SKIN WEEKLY [facility] NuvaRing 0.12-0.015 mg/24 hr vaginal insert 02-05 00:00: 00 03-08 00:00 :00 No [id number] 1{each} Insert 1 Each into vagina once every month. Insert vaginally and leave in place for 3 consecutiv e weeks, then remove for 1 week. [facility] tiZANidine 4 mg tablet 01-31 00:00: 00 03-13 00:00 :00 No [id number] 9100 Take 1 tablet by mouth three times daily as needed for muscle spasm [facility] gabapentin 600 mg tablet 01-30 00:00: 00 03-13 00:00 :00 No [id number] 600mg Take 1 tablet by mouth in the morning and 1 tablet at noon and 1 tablet in the evening. [facility] insulin NPH (NOVOLIN N NPH U-100 INSULIN) 100 unit/mL injection 01-27 00:00: 00 Yes [id number] 10U inject 10 Units under the skin in the morning. Inject only if fasting BG >150 [facility] glyBURIDE 5 mg tablet 01-25 00:00: 00 05-07 00:00 :00 No [id number] TAKE 1 TABLET BY MOUTH TWICE DAILY (NEEDS FOLLOW UP VISIT FOR FURTHER REFILLS [facility] PROMETHAZIN E 12.5 mg tablet 01-25 00:00: 00 03-06 00:00 :00 No [id number] TAKE 2 TABLETS BY MOUTH EVERY 6 HOURS NEEDED FOR NAUSEA AND VOMITING [facility] lidocaine HCL (ASPERCREME , LIDOCAINE HCL,) 4 % Crea 01-19 00:00: 00 02-06 00:00 :00 No [id number] 1{each} Apply 1 Each to area(s) in the morning and 1 Each in the evening. [facility] pantoprazol e 40 mg EC tablet 01-01 00:00: 00 03-24 00:00 :00 No [id number] 40mg Take 1 tablet by mouth in the morning. [facility] OZEMPIC 2 mg/dose (8 mg/3 mL) PnIj 12-27 00:00: 00 02-27 00:00 :00 No INJECT 2 MG UNDER THE SKIN WEEKLY [facility] metformin ER 500 mg 24 hr tablet 12-26 00:00: 00 01-19 00:00 :00 No TAKE 2 TABLETS BY MOUTH IN THE MORNING AND TAKE 3 TABLETS IN THE EVENING( NEEDS APPOINTMEN T) [facility] JARDIANCE 25 mg Tab 12-12 00:00: 00 03-14 00:00 :00 No [id number] TAKE 1 TABLET BY MOUTH ONCE DAILY IN THE MORNING [facility] meloxicam 15 mg tablet 12-12 00:00: 00 03-13 00:00 :00 No [id number] 15mg Take 1 tablet by mouth in the morning. [facility] triamcinolo ne acetonide (KENALOG) injection 80 mg 12-11 17:00: 00 12-11 15:56 :00 No [id number] 80mg [facility] sodium bicarbonate 1 mEq/mL (8.4 %) injection 0.5 mL 12-11 17:00: 00 12-11 15:55 :00 No [id number] .5mL [facility] lidocaine 1% (PF) (XYLOCAINE) injection 10 mL 12-11 17:00: 00 12-11 15:55 :00 No [id number] 10mL [facility] NaCl 0.9% (NS) injection 10 mL 12-11 16:45: 00 12-11 15:55 :00 No [id number] 10mL [facility] NaCl 0.9% (NS) IV infusion 250 mL 12-11 15:30: 00 12-11 15:11 :00 No [id number] 250mL [facility] meclizine 25 mg tablet 12-07 00:00: 00 03-06 00:00 :00 No [id number] TAKE 1 TABLET BY MOUTH EVERY 8 HOURS NEEDED [facility] ONDANSETRON HCL ORAL 11-29 11:48: 30 11-29 00:00 :00 No Take by mouth. [facility] fluticasone propionate 50 mcg/actuati on nasal spray 11-29 00:00: 00 01-22 00:00 :00 No [id number] 1{spray } Use 1 [place] in each nostril in the morning. [facility] proMETHazin e 12.5 mg tablet 3-28 00:00: 00 01-25 00:00 :00 No [id number] 25mg Take 2 tablets by mouth every 6 (six) hours as needed for Nausea and Vomiting (N/V). [facility] semaglutide (OZEMPIC) 1 mg/dose (4 mg/3 mL) PnIj 3-20 00:00: 00 01-19 00:00 :00 No [id number] 1mg inject 1 mg under the skin weekly. [facility] albuterol 90 mcg/actuati on inhaler -16 00:00: 00 Yes [id number] 2{puff} Inhale 2 Puffs every 6 (six) hours as needed for Wheezing or Shortness of Breath. [facility] glyBURIDE 5 mg tablet 16 00:00: 00 01-24 00:00 :00 No [id number] TAKE 1 TABLET BY MOUTH TWICE DAILY (NEEDS FOLLOW UP VISIT FOR FURTHER REFILLS [facility] gabapentin 600 mg tablet -14 00:00: 00 01-30 00:00 :00 No [id number] 600mg Take 1 tablet by mouth in the morning and 1 tablet at noon and 1 tablet in the evening. [facility] Butalbital- Acetaminoph en-Caff 50-300-40 mg per capsule 2- 00:00: 00 03-24 00:00 :00 No TAKE 1 CAPSULE BY MOUTH EVERY 6 HOURS NEEDED [facility] ondansetron 4 mg tablet 2- 00:00: 00 03-24 00:00 :00 No TAKE 1 TABLET BY MOUTH EVERY 12 HOURS NEEDED [facility] meclizine 25 mg tablet 2-22 00:00: 00 12-07 00:00 :00 No TAKE 1 TABLET BY MOUTH EVERY 8 HOURS NEEDED [facility] escitalopra m oxalate (LEXAPRO) 20 mg tablet 2- 00:00: 00 03-06 00:00 :00 No [id number] 20mg Take 1 tablet by mouth in the morning. [facility] tiZANidine 4 mg tablet 10-02 00:00: 01-31 00:00 :00 No [id number] 9100 4mg Take 1 tablet by mouth 3 (three) times daily as needed (muscle spasm). [facility] atorvastati n 20 mg tablet 09-21 00:00: 00 03-06 00:00 :00 No [id number] 20mg Take 1 tablet by mouth at bedtime. [facility] busPIRone 5 mg tablet 09-21 00:00: 11-10 00:00 :00 No [id number] 5mg Take 1 tablet by mouth 2 (two) times daily as needed (anxiety). [facility] bupivacaine (preserv free) (SENSORCAIN E MPF) 0.25 % (2.5 mg/mL) injection 4 mL 09-15 17:15: 09-15 17:19 :00 No [id number] 4mL [facility] lidocaine 1% (PF) (XYLOCAINE) injection 14 mL 09-15 17:15: 00 09-15 17:06 :00 No [id number] 14mL [facility] triamcinolo ne acetonide (KENALOG) injection 80 mg 09-15 17:15: 09-15 17:12 :00 No [id number] 80mg [facility] lactated ringers IV infusion 500 mL 09-15 16:45: 00 09-15 17:06 :00 No [id number] 500mL [facility] meloxicam 15 mg tablet 09-15 00:00: 00 10-26 00:00 :00 No [id number] 15mg Take 1 tablet by mouth in the morning. [facility] pioglitazon e 30 mg tablet 2 00:00: 06-11 00:00 :00 No [id number] 30mg Take 1 tablet by mouth in the morning. [facility] metFORMIN 1,000 mg tablet 09-13 00:00: 06-11 00:00 :00 No [id number] 1000mg Take 1 tablet by mouth in the morning and 1 tablet in the evening. Take with meals. [facility] semaglutide (OZEMPIC) 1 mg/dose (4 mg/3 mL) [facility] 09-13 00:00: 00 10-26 00:00 :00 No [id number] 1mg inject 1 mg under the skin weekly. [facility] tirzepatide (MOUNJARO) 2.5 mg/0.5 mL [facility] 09-13 00:00: 00 09-13 00:00 :00 No [id number] 2.5mg inject 2.5 mg under the skin weekly. [facility] ONDANSETRON HCL ORAL 09-12 09:40: 30 Yes Take by mouth. [facility] LORazepam (ATIVAN) tablet 1 mg - 20:15: 00 08-16 19:20 :00 No [id number] 1mg 1 mg, Oral, ONCE, 1 dose, On Sun08/16/22 at 1415, Routine [facility] JARDIANCE 25 mg Tab 1-04 00:00: 00 12-12 00:00 :00 No [id number] TAKE 1 TABLET BY MOUTH ONCE DAILY IN THE MORNING [facility] PROMETHAZIN E 12.5 mg tablet 1- 00:00: 00 11-07 00:00 :00 No [id number] TAKE 2 TABLETS BY MOUTH EVERY 6 HOURS NEEDED FOR VERTIGO [facility] HYDROXYZINE 25 mg tablet 1-04 00:00: 00 09-21 00:00 :00 No [id number] TAKE 1 TABLET BY MOUTH EVERY 8 HOURS NEEDED FOR ITCHING [facility] fluconazole 200 mg tablet 2021-08 09-20 00:00: 00 12-28 00:00 :00 No [id number] 200mg Take 1 tablet by mouth in the morning. [facility] terconazole 0.4 % vaginal cream 2021-08 00:00: 00 08-02 00:00 :00 No [id number] 1{appli cator} Insert 1 Applicator into vagina at bedtime. [facility] NuvaRing 0.12-0.015 mg/24 hr vaginal insert 2021-08 00:00: 00 02-05 00:00 :00 No [id number] 1{each} Insert 1 Each into vagina once every month. Insert vaginally and leave in place for 3 consecutiv e weeks, then remove for 1 week. [facility] lactated ringers IV infusion 500 mL 2021-08 21:45: 00 06-30 20:39 :00 No [id number] 500mL [facility] lidocaine 1% (PF) (XYLOCAINE) injection 10 mL 2021-08 20:37: 00 06-30 20:37 :00 No [id number] 10mL [facility] triamcinolo ne acetonide (KENALOG) injection 80 mg 2021-08 20:37: 00 06-30 20:38 :00 No [id number] 80mg [facility] bupivacaine (preserv free) (SENSORCAIN E MPF) 0.25 % (2.5 mg/mL) injection 4 mL 2021-08 20:36: 00 06-30 20:38 :00 No [id number] 4mL [facility] HYDROXYZINE 25 mg tablet 2021-08 00:00: 00 08-16 00:00 :00 No [id number] TAKE 1 TABLET BY MOUTH EVERY 8 HOURS NEEDED FOR ITCHING [facility] PROMETHAZIN E 12.5 mg tablet 2021-08 00:00: 00 07-17 00:00 :00 No [id number] TAKE 1 TABLET BY MOUTH ONCE DAILY NEEDED FOR NAUSEA AND VOMITING [facility] proMETHazin e 12.5 mg tablet 2021-08 0-10 00:00: 00 06-28 00:00 :00 No [id number] 12.5mg Take 1 tablet by mouth once daily as needed for Nausea and Vomiting (N/V). [facility] gabapentin 400 mg capsule 2021-08 0-04 00:00: 00 10-24 00:00 :00 No [id number] 9100 400mg Take 1 capsule by mouth in the morning and 1 capsule at noon and 1 capsule in the evening. [facility] tiZANidine 4 mg tablet 2021-08 0-04 00:00: 00 10-01 00:00 :00 No [id number] 9100 4mg Take 1 tablet by mouth 3 (three) times daily as needed (muscle spasm). [facility] meloxicam 15 mg tablet 2021-08 0- 00:00: 00 09-15 00:00 :00 No [id number] 15mg Take 1 tablet by mouth in the morning. [facility] metformin ER 500 mg 24 hr tablet 04-21 00:00: 00 09-13 00:00 :00 No [id number] TAKE 2 TABLETS BY MOUTH ONCE DAILY IN THE MORNING AND 3 ONCE DAILY IN THE EVENING. [facility] dulaglutide (TRULICITY) 0.75 mg/0.5 mL PnIj 04-21 00:00: 00 09-13 00:00 :00 No [id number] .75mg inject 1 Pen under the skin weekly. [facility] hydrOXYzine 25 mg tablet 04-21 00:00: 00 06-28 00:00 :00 No [id number] 25mg Take 1 tablet by mouth every 8 (eight) hours as needed for Itching. [facility] insulin NPH (NOVOLIN N NPH U-100 INSULIN) 100 unit/mL injection 06 00:00: 00 09-13 00:00 :00 No [id number] INJECT 20 UNITS SUBCUTANEO USLY ONCE DAILY WITH BREAKFAST [facility] insulin regular human (NOVOLIN R REGULAR U-100 INSULN) 100 unit/mL injection 04-18 00:00: 00 09-13 00:00 :00 No [id number] INJECT 15 UNITS SUBCUTANEO USLY THREE TIMES DAILY BEFORE MEAL(S) [facility] ondansetron 4 mg disintegrat ing tablet 04-18 00:00: 00 07-17 00:00 :00 No [id number] DISSOLVE 1 TABLET IN MOUTH EVERY 8 HOURS NEEDED FOR NAUSEA AND VOMITING FOR UP TO 4 DAYS [facility] gabapentin 400 mg capsule 04-18 00:00: 00 05-16 00:00 :00 No [id number] 9100 400mg Take 1 capsule by mouth in the morning and 1 capsule at noon and 1 capsule in the evening. [facility] PROMETHAZIN E 12.5 mg tablet 03-27 00:00: 00 05-22 00:00 :00 No [id number] TAKE 2 TABLETS BY MOUTH EVERY 6 HOURS NEEDED FOR VERTIGO [facility] glyBURIDE 5 mg tablet 01-16 00:00: 00 10-26 00:00 :00 No [id number] TAKE 1 TABLET BY MOUTH TWICE DAILY WITH MEALS (NEEDS FOLLOW UP VISIT FOR FURTHER REFILLS) [facility] escitalopra m oxalate (LEXAPRO) 20 mg tablet 01-16 00:00: 00 10-03 00:00 :00 No [id number] 20mg Take 1 tablet by mouth daily. [facility] atorvastati n 20 mg tablet 01-16 00:00: 00 09-21 00:00 :00 No [id number] 20mg Take 1 tablet by mouth at bedtime. [facility] empaglifloz in (JARDIANCE) 25 mg Tab 01-16 00:00: 00 08-16 00:00 :00 No [id number] 25mg Take 1 tablet by mouth every morning. [facility] NUVARING (NUVARING) 0.12-0.015 mg/24 hr vaginal insert 06 00:00: 00 07-04 00:00 :00 No [id number] 1{each} Insert 1 Each into vagina once every month. Insert vaginally and leave in place for 3 consecutiv e weeks, then remove for 1 week. [facility] MELOXICAM 15 mg tablet 5-25 00:00: 00 05-16 00:00 :00 No [id number] Take 1 tablet by mouth once daily [facility] GLYBURIDE 5 mg tablet 525 00:00: 00 01-16 00:00 :00 No [id number] TAKE 1 TABLET BY MOUTH TWICE DAILY WITH MEALS (NEEDS FOLLOW UP VISIT FOR FURTHER REFILLS) [facility] HYDROXYZINE 25 mg tablet 01-04 00:00: 00 01-11 00:00 :00 No [id number] TAKE 1 TABLET BY MOUTH EVERY 8 HOURS NEEDED FOR ANXIETY [facility] semaglutide (OZEMPIC) 1 mg/dose (2 mg/1.5 mL) PnIj 4-19 00:00: 00 01-16 00:00 :00 No [id number] 1mg inject 1 mg under the skin weekly. [facility] tiZANidine 4 mg tablet 4-12 00:00: 00 05-16 00:00 :00 No 4mg Take 1 tablet by mouth 3 (three) times daily as needed (muscle spasm). [facility] oxyCODONE 5 mg immediate release tablet 4-12 00:00: 00 04-18 00:00 :00 No [id number] 5mg Take 1 tablet by mouth every 6 (six) hours as needed for Pain (scale 7-10). Indication s: acute pain [facility] PROMETHAZIN E 12.5 mg tablet 3-14 00:00: 00 01-16 00:00 :00 No [id number] TAKE 2 TABLETS BY MOUTH EVERY 6 HOURS NEEDED FOR VERTIGO [facility] ONDANSETRON 4 mg disintegrat ing tablet 2-15 00:00: 00 04-18 00:00 :00 No [id number] DISSOLVE 1 TABLET IN MOUTH EVERY 8 HOURS NEEDED FOR NAUSEA AND VOMITING FOR UP TO 4 DAYS [facility] insulin NPH (NOVOLIN N NPH U-100 INSULIN) 100 unit/mL injection 09-06 00:00: 00 04-18 00:00 :00 No [id number] INJECT 20 UNITS SUBCUTANEO USLY ONCE DAILY WITH BREAKFAST [facility] escitalopra m oxalate (LEXAPRO) 20 mg tablet 09-06 00:00: 00 01-16 00:00 :00 No [id number] 20mg Take 1 tablet by mouth daily. [facility] NOVOLIN R REGULAR U-100 INSULN 100 unit/mL solution 09-02 00:00: 00 04-18 00:00 :00 No [id number] INJECT 15 UNITS SUBCUTANEO USLY THREE TIMES DAILY BEFORE MEAL(S) [facility] MONTELUKAST 10 mg tablet 08-15 00:00: 00 07-17 00:00 :00 No [id number] Take 1 tablet by mouth once daily [facility] NUVARING (NUVARING) 0.12-0.015 mg/24 hr vaginal insert 2020-08 00:00: 00 01-16 00:00 :00 No [id number] 1{each} Insert 1 Each into vagina once every month. Insert vaginally and leave in place for 3 consecutiv e weeks, then remove for 1 week. [facility] metformin ER 500 mg 24 hr tablet 2020-08 00:00: 00 01-16 00:00 :00 No [id number] TAKE 2 TABLETS BY MOUTH ONCE DAILY IN THE MORNING AND 3 ONCE DAILY IN THE EVENING. Needs follow up visit for further refills [facility] atorvastati n 20 mg tablet 2020-08 00:00: 00 01-16 00:00 :00 No [id number] 20mg Take 1 tablet by mouth at bedtime. [facility] Guaifenesin 200 mg/5 mL Liqd 2020-08 00:00: 00 07-17 00:00 :00 No [id number] 5 ml po q 6 h prn cough [facility] mupirocin 2 % ointment 2020-08 00:00: 00 07-17 00:00 :00 No [id number] Apply to area(s) 3 (three) times daily. [facility] empaglifloz in (JARDIANCE) 04-25 00:00: 00 01-16 00:00 :00 No [id number] 10mg Take 1 tablet by mouth daily. [facility] albuterol 90 mcg/actuati on inhaler 02-16 00:00: 00 11-29 00:00 :00 No [id number] 2{puff} Inhale 2 Puffs every 6 (six) hours as needed for Wheezing or Shortness of Breath. [facility] hydrOXYzine 25 mg tablet 01-13 00:00: 06-02 00:00 :00 No [id number] 25mg Take 1 tablet by mouth every 6 (six) hours. TAKE 1-2 TABS PO Q6 HOURS PRN FOR ANXIETY [facility] metformin ER 500 mg 24 hr tablet 01-04 00:00: 00 06-27 00:00 :00 No [id number] TAKE 2 TABLETS BY MOUTH ONCE DAILY IN THE MORNING AND 3 ONCE DAILY IN THE EVENING. Needs follow up visit for further refills [facility] atorvastati n 20 mg tablet 01-04 00:00: 00 06-27 00:00 :00 No [id number] 20mg Take 1 tablet by mouth at bedtime. [facility] ondansetron (ZOFRAN ODT) 4 mg disintegrat ing tablet 12-30 00:00: 00 09-27 00:00 :00 No [id number] 4mg Take 1 tablet by mouth every 8 (eight) hours as needed for Nausea and Vomiting (N/V) for up to 4 days. [facility] hydrocortis one-pramovi ne rectal foam 12-13 00:00: 00 07-17 00:00 :00 No [id number] 1{appli cator} Insert 1 Applicator into rectum 2 (two) times daily. [facility] insulin NPH (NOVOLIN N NPH U-100 INSULIN) 100 unit/mL injection - 00:00: 00 09-06 00:00 :00 No [id number] INJECT 20 UNITS SUBCUTANEO USLY ONCE DAILY WITH BREAKFAST [facility] insulin regular human (NOVOLIN R REGULAR U-100 INSULN) 100 unit/mL injection 10-13 00:00: 00 09-02 00:00 :00 No [id number] 15U inject 15 Units under the skin 3 (three) times daily before meals. [facility] glyBURIDE 5 mg tablet 10-13 00:00: 00 06-27 00:00 :00 No [id number] 5mg Take 1 tablet by mouth 2 (two) times daily with meals. Needs follow up visit for further refills [facility] Insulin Syringe-Nee dle U-100 1 mL 31 gauge x 5/16 Syrg 2019-08 00:00: 00 07-17 00:00 :00 No Use as directed [facility] Insulin Syringe-Nee dle U-100 1 mL 31 gauge x 5/16 Syrg 2019-08 00:00: 00 07-17 00:00 :00 No Use as directed [facility] hydrocortis one (ANUSOL-HC) 25 mg suppository 2019-08 00:00: 00 06-14 05:59 :00 No [id number] 25mg Insert 1 Suppositor y into rectum 2 (two) times daily for 10 days. [facility] escitalopra m oxalate (LEXAPRO) 5 mg tablet 2019-08 0 00:00: 00 12-31 00:00 :00 No [id number] 5mg Take 1 tablet by mouth daily. [facility] metformin ER 500 mg 24 hr tablet 2019-08 0 00:00: 10-13 00:00 :00 No [id number] TAKE 2 TABLETS BY MOUTH ONCE DAILY IN THE MORNING AND 3 ONCE DAILY IN THE EVENING. Needs follow up visit for further refills [facility] glyBURIDE 5 mg tablet 2019-08 00:00: 06-22 00:00 :00 No [id number] 5mg Take 1 tablet by mouth 2 (two) times daily with meals. Needs follow up visit for further refills [facility] insulin NPH (NOVOLIN N NPH U-100 INSULIN) 100 unit/mL injection 2019-08 00:00: 06-22 00:00 :00 No [id number] USE 10 UNITS UNDER THE SUBCUTANEO USLY DAILY WITH BREAKFAST [facility] insulin regular human (NOVOLIN R REGULAR U-100 INSULN) 100 unit/mL injection 2019-08 00:00: 06-22 00:00 :00 No [id number] INJECT 10 UNITS SUBCUTANEO USLY WITH BREAKFAST [facility] hydrOXYzine 25 mg tablet 2019-08 00:00: 06-22 00:00 :00 No [id number] 25mg Take 1 tablet by mouth every 6 (six) hours. TAKE 1-2 TABS PO Q6 HOURS PRN FOR ANXIETY [facility] ondansetron 8 mg disintegrat ing tablet 05-09 00:00: 07-13 00:00 :00 No [id number] 8mg Take 1 tablet by mouth every 8 (eight) hours as needed for Nausea and Vomiting (N/V). [facility] hydrocortis one 2.5 % rectal cream 05-09 00:00: 07-13 00:00 :00 No [id number] Insert into rectum 2 (two) times daily. [facility] diphenoxyla te-atropine 2.5-0.025 mg tablet 05-09 00:00: 07-13 00:00 :00 No [id number] 1{tbl} Take 1 tablet by mouth every 6 (six) hours as needed (diarrhea) . [facility] sulindac 200 mg tablet 2-04 00:00: 07-13 00:00 :00 No [id number] 200mg Take 1 tablet by mouth 2 (two) times daily. [facility] bromphenira mine-pseudo ephedrine-D M (BROMFED DM) 2-30-10 mg/5 mL syrup 1-07 00:00: 07-13 00:00 :00 No [id number] 5mL Take 5 mL by mouth 4 (four) times daily as needed for Congestion /Allergies or Cold symptoms. [facility] diclofenac 50 mg tablet 1 00:00: 07-13 00:00 :00 No [id number] 50mg Take 1 tablet by mouth 3 (three) times daily. [facility] proMETHazin e 25 mg tablet 2018-08 205 00:00: 07-13 00:00 :00 No [id number] 25mg Take 1 tablet by mouth every 6 (six) hours as needed for Nausea and Vomiting (N/V). [facility] albuterol 90 mcg/actuati on inhaler 2017-08 00:00: 00 07-13 00:00 :00 No 2{puff} Inhale 2 Puffs every 4 (four) hours as needed for Wheezing or Shortness of Breath. [facility] fluticasone 50 mcg/actuati on nasal spray 2017-08 00:00: 00 07-13 00:00 :00 No 1{spray } Use 1 [place] in each nostril daily. [facility] ibuprofen 800 mg tablet 2017-08 00:00: 00 07-13 00:00 :00 No 800mg Take 1 tablet by mouth every 6 (six) hours as needed for Pain (scale 4-6). [facility] Breast Pump Lisa 04-13 00:00: 00 07-13 00:00 :00 No Use as directed [facility] blood sugar diagnostic (ONETOUCH ULTRA TEST) strip 2017-0 8-22 00:00: 00 07-13 00:00 :00 No Please, dispense test strips for checking FS x8 times per day [facility] Blood Pressure Monitor (BLOOD PRESSURE KIT) Kit 2016- 8-15 00:00: 00 07-13 00:00 :00 No [id number] Use as directed [facility] Lancets (ONETOUCH ULTRASOFT LANCETS) Misc 01-11 00:00: 00 07-13 00:00 :00 No Use as directed [facility] Immunizations Ordered Immunization Name Filled Immunization Name Date Status Comments Source Flu Injectable [facility] Pres-Free (FLUCELVAX) 2024-04-21 00:00:00 Completed [facility] Pneumococcal Polysaccharide, PPSV23 (PNEUMOVAX) 2023-06-06 00:00:00 Completed [facility] Influenza Virus Vaccine Quad IM, Preserv and ABX Free 6 MO-64 YRS (FLUCELVAX) 2023-06-06 00:00:00 Completed Pneumococcal Polysaccharide, PPSV23 (PNEUMOVAX) 2023-06-06 00:00:00 Completed [facility] Influenza Virus Vaccine Quad IM, Preserv and ABX Free 6 MO-64 YRS (FLUCELVAX) 2023-06-06 00:00:00 Completed Pneumococcal Polysaccharide, PPSV23 (PNEUMOVAX) 2023-06-06 00:00:00 Completed [facility] Influenza Virus Vaccine Quad IM, Preserv and ABX Free 6 MO-64 YRS (FLUCELVAX) 2023-06-06 00:00:00 Completed Influenza Virus Vaccine 2022-05-29 00:00:00 Completed [facility] Influenza Virus Vaccine Quad .5 mL IM 6+ MO 2022-05-29 00:00:00 Completed [facility] Influenza Virus Vaccine 2022-05-29 00:00:00 Completed [facility] Influenza Virus Vaccine Quad .5 mL IM 6+ MO 2022-05-29 00:00:00 Completed [facility] Influenza Virus Vaccine 2022-05-29 00:00:00 Completed [facility] Influenza Virus Vaccine Quad .5 mL IM 6+ MO 2022-05-29 00:00:00 Completed [facility] Influenza Virus Vaccine 2022-05-29 00:00:00 Completed [facility] Influenza Virus Vaccine Quad .5 mL IM 6+ MO 2022-05-29 00:00:00 Completed [facility] Influenza Virus Vaccine 2022-05-29 00:00:00 Completed [facility] Influenza Virus Vaccine Quad .5 mL IM 6+ MO 2022-05-29 00:00:00 Completed [facility] Influenza Virus Vaccine 2022-05-29 00:00:00 Completed [facility] Influenza Virus Vaccine Quad .5 mL IM 6+ MO 2022-05-29 00:00:00 Completed [facility] Influenza Virus Vaccine 2022-05-29 00:00:00 Completed [facility] Influenza Virus Vaccine Quad .5 mL IM 6+ MO 2022-05-29 00:00:00 Completed [facility] Influenza Virus Vaccine 2022-05-29 00:00:00 Completed [facility] Influenza Virus Vaccine Quad .5 mL IM 6+ MO 2022-05-29 00:00:00 Completed [facility] Influenza Virus Vaccine 2022-05-29 00:00:00 Completed [facility] Influenza Virus Vaccine Quad .5 mL IM 6+ MO 2022-05-29 00:00:00 Completed [facility] Influenza Virus Vaccine 2022-05-29 00:00:00 Completed [facility] Influenza Virus Vaccine Quad .5 mL IM 6+ MO 2022-05-29 00:00:00 Completed [facility] Influenza Virus Vaccine 2022-05-29 00:00:00 Completed [facility] Influenza Virus Vaccine Quad .5 mL IM 6+ MO 2022-05-29 00:00:00 Completed [facility] Influenza Virus Vaccine 2022-05-29 00:00:00 Completed [facility] Influenza Virus Vaccine Quad .5 mL IM 6+ MO 2022-05-29 00:00:00 Completed [facility] Influenza Virus Vaccine 2022-05-29 00:00:00 Completed [facility] Influenza Virus Vaccine Quad .5 mL IM 6+ MO 2022-05-29 00:00:00 Completed [facility] Influenza Virus Vaccine 2022-05-29 00:00:00 Completed [facility] Influenza Virus Vaccine Quad .5 mL IM 6+ MO 2022-05-29 00:00:00 Completed [facility] Influenza Virus Vaccine 2022-05-29 00:00:00 Completed [facility] Influenza Virus Vaccine Quad .5 mL IM 6+ MO 2022-05-29 00:00:00 Completed [facility] Influenza Virus Vaccine 2022-05-29 00:00:00 Completed [facility] Influenza Virus Vaccine Quad .5 mL IM 6+ MO 2022-05-29 00:00:00 Completed [facility] Influenza Virus Vaccine 2022-05-29 00:00:00 Completed [facility] Influenza Virus Vaccine Quad .5 mL IM 6+ MO 2022-05-29 00:00:00 Completed [facility] Influenza Virus Vaccine 2022-05-29 00:00:00 Completed [facility] Influenza Virus Vaccine Quad .5 mL IM 6+ MO 2022-05-29 00:00:00 Completed [facility] Influenza Virus Vaccine 2022-05-29 00:00:00 Completed [facility] Influenza Virus Vaccine Quad .5 mL IM 6+ MO 2022-05-29 00:00:00 Completed [facility] Influenza Virus Vaccine 2022-05-29 00:00:00 Completed [facility] Influenza Virus Vaccine Quad .5 mL IM 6+ MO 2022-05-29 00:00:00 Completed [facility] Influenza Virus Vaccine 2022-05-29 00:00:00 Completed [facility] Influenza Virus Vaccine Quad .5 mL IM 6+ MO 2022-05-29 00:00:00 Completed [facility] Influenza Virus Vaccine 2022-05-29 00:00:00 Completed [facility] Influenza Virus Vaccine Quad .5 mL IM 6+ MO 2022-05-29 00:00:00 Completed [facility] Influenza Virus Vaccine 2022-05-29 00:00:00 Completed [facility] Influenza Virus Vaccine Quad .5 mL IM 6+ MO 2022-05-29 00:00:00 Completed [facility] Influenza Virus Vaccine 2022-05-29 00:00:00 Completed [facility] Influenza Virus Vaccine Quad .5 mL IM 6+ MO 2022-05-29 00:00:00 Completed [facility] Influenza Virus Vaccine 2022-05-29 00:00:00 Completed [facility] Influenza Virus Vaccine Quad .5 mL IM 6+ MO 2022-05-29 00:00:00 Completed [facility] Influenza Virus Vaccine 2022-05-29 00:00:00 Completed [facility] Influenza Virus Vaccine Quad .5 mL IM 6+ MO 2022-05-29 00:00:00 Completed [facility] Influenza Virus Vaccine 2022-05-29 00:00:00 Completed [facility] Influenza Virus Vaccine Quad .5 mL IM 6+ MO 2022-05-29 00:00:00 Completed [facility] Influenza Virus Vaccine 2022-05-29 00:00:00 Completed [facility] Influenza Virus Vaccine Quad .5 mL IM 6+ MO 2022-05-29 00:00:00 Completed [facility] Influenza Virus Vaccine 2022-05-29 00:00:00 Completed [facility] Influenza Virus Vaccine Quad .5 mL IM 6+ MO 2022-05-29 00:00:00 Completed [facility] Influenza Virus Vaccine 2022-05-29 00:00:00 Completed [facility] Influenza Virus Vaccine Quad .5 mL IM 6+ MO 2022-05-29 00:00:00 Completed [facility] Influenza Virus Vaccine 2022-05-29 00:00:00 Completed [facility] Influenza Virus Vaccine Quad .5 mL IM 6+ MO 2022-05-29 00:00:00 Completed [facility] Influenza Virus Vaccine 2022-05-29 00:00:00 Completed [facility] Influenza Virus Vaccine Quad .5 mL IM 6+ MO 2022-05-29 00:00:00 Completed [facility] Influenza Virus Vaccine 2022-05-29 00:00:00 Completed [facility] Influenza Virus Vaccine Quad .5 mL IM 6+ MO 2022-05-29 00:00:00 Completed [facility] Influenza Virus Vaccine 2022-05-29 00:00:00 Completed [facility] Influenza Virus Vaccine Quad .5 mL IM 6+ MO 2022-05-29 00:00:00 Completed [facility] Influenza Virus Vaccine 2022-05-29 00:00:00 Completed [facility] Influenza Virus Vaccine Quad .5 mL IM 6+ MO 2022-05-29 00:00:00 Completed [facility] Influenza Virus Vaccine 2022-05-29 00:00:00 Completed [facility] Influenza Virus Vaccine Quad .5 mL IM 6+ MO 2022-05-29 00:00:00 Completed [facility] Influenza Virus Vaccine 2022-05-29 00:00:00 Completed [facility] Influenza Virus Vaccine Quad .5 mL IM 6+ MO 2022-05-29 00:00:00 Completed [facility] Influenza Virus Vaccine 2022-05-29 00:00:00 Completed [facility] Influenza Virus Vaccine Quad .5 mL IM 6+ MO 2022-05-29 00:00:00 Completed [facility] Influenza Virus Vaccine 2022-05-29 00:00:00 Completed [facility] Influenza Virus Vaccine Quad .5 mL IM 6+ MO 2022-05-29 00:00:00 Completed [facility] Influenza Virus Vaccine 2022-05-29 00:00:00 Completed [facility] Influenza Virus Vaccine Quad .5 mL IM 6+ MO 2022-05-29 00:00:00 Completed [facility] Influenza Virus Vaccine 2022-05-29 00:00:00 Completed [facility] Influenza Virus Vaccine Quad .5 mL IM 6+ MO 2022-05-29 00:00:00 Completed [facility] Influenza Virus Vaccine 2022-05-29 00:00:00 Completed [facility] Influenza Virus Vaccine Quad .5 mL IM 6+ MO 2022-05-29 00:00:00 Completed [facility] Influenza Virus Vaccine 2022-05-29 00:00:00 Completed [facility] Influenza Virus Vaccine Quad .5 mL IM 6+ MO 2022-05-29 00:00:00 Completed [facility] Influenza Virus Vaccine 2022-05-29 00:00:00 Completed [facility] Influenza Virus Vaccine Quad .5 mL IM 6+ MO 2022-05-29 00:00:00 Completed [facility] Influenza Virus Vaccine 2022-05-29 00:00:00 Completed [facility] Influenza Virus Vaccine Quad .5 mL IM 6+ MO 2022-05-29 00:00:00 Completed [facility] Influenza Virus Vaccine 2022-05-29 00:00:00 Completed [facility] Influenza Virus Vaccine Quad .5 mL IM 6+ MO 2022-05-29 00:00:00 Completed [facility] Influenza Virus Vaccine 2022-05-29 00:00:00 Completed [facility] Influenza Virus Vaccine Quad .5 mL IM 6+ MO 2022-05-29 00:00:00 Completed [facility] Influenza Virus Vaccine 2022-05-29 00:00:00 Completed [facility] Influenza Virus Vaccine Quad .5 mL IM 6+ MO 2022-05-29 00:00:00 Completed [facility] Influenza Virus Vaccine 2022-05-29 00:00:00 Completed [facility] Influenza Virus Vaccine Quad .5 mL IM 6+ MO 2022-05-29 00:00:00 Completed [facility] Influenza Virus Vaccine 2022-05-29 00:00:00 Completed [facility] Influenza Virus Vaccine Quad .5 mL IM 6+ MO 2022-05-29 00:00:00 Completed [facility] Influenza Virus Vaccine 2022-05-29 00:00:00 Completed [facility] Influenza Virus Vaccine Quad .5 mL IM 6+ MO 2022-05-29 00:00:00 Completed [facility] Influenza Virus Vaccine 2022-05-29 00:00:00 Completed [facility] Influenza Virus Vaccine Quad .5 mL IM 6+ MO 2022-05-29 00:00:00 Completed [facility] Influenza Virus Vaccine 2022-05-29 00:00:00 Completed [facility] Influenza Virus Vaccine Quad .5 mL IM 6+ MO 2022-05-29 00:00:00 Completed [facility] Influenza Virus Vaccine 2022-05-29 00:00:00 Completed [facility] Influenza Virus Vaccine Quad .5 mL IM 6+ MO 2022-05-29 00:00:00 Completed [facility] Influenza Virus Vaccine 2022-05-29 00:00:00 Completed [facility] Influenza Virus Vaccine Quad .5 mL IM 6+ MO 2022-05-29 00:00:00 Completed [facility] Influenza Virus Vaccine 2022-05-29 00:00:00 Completed [facility] Influenza Virus Vaccine Quad .5 mL IM 6+ MO 2022-05-29 00:00:00 Completed [facility] Influenza Virus Vaccine 2022-05-29 00:00:00 Completed [facility] Influenza Virus Vaccine Quad .5 mL IM 6+ MO 2022-05-29 00:00:00 Completed [facility] Influenza Virus Vaccine 2022-05-29 00:00:00 Completed [facility] Influenza Virus Vaccine Quad .5 mL IM 6+ MO 2022-05-29 00:00:00 Completed [facility] Influenza Virus Vaccine 2022-05-29 00:00:00 Completed [facility] Influenza Virus Vaccine Quad .5 mL IM 6+ MO 2022-05-29 00:00:00 Completed [facility] Influenza Virus Vaccine 2022-05-29 00:00:00 Completed [facility] Influenza Virus Vaccine Quad .5 mL IM 6+ MO 2022-05-29 00:00:00 Completed [facility] Influenza Virus Vaccine 2022-05-29 00:00:00 Completed [facility] Influenza Virus Vaccine Quad .5 mL IM 6+ MO 2022-05-29 00:00:00 Completed [facility] Influenza Virus Vaccine 2022-05-29 00:00:00 Completed [facility] Influenza Virus Vaccine Quad .5 mL IM 6+ MO 2022-05-29 00:00:00 Completed [facility] Influenza Virus Vaccine 2022-05-29 00:00:00 Completed [facility] Influenza Virus Vaccine Quad .5 mL IM 6+ MO 2022-05-29 00:00:00 Completed [facility] Influenza Virus Vaccine 2022-05-29 00:00:00 Completed [facility] Influenza Virus Vaccine Quad .5 mL IM 6+ MO 2022-05-29 00:00:00 Completed [facility] Influenza Virus Vaccine 2022-05-29 00:00:00 Completed [facility] Influenza Virus Vaccine Quad .5 mL IM 6+ MO 2022-05-29 00:00:00 Completed [facility] Influenza Virus Vaccine 2022-05-29 00:00:00 Completed [facility] Influenza Virus Vaccine Quad .5 mL IM 6+ MO 2022-05-29 00:00:00 Completed [facility] Influenza Virus Vaccine 2022-05-29 00:00:00 Completed [facility] Influenza Virus Vaccine Quad .5 mL IM 6+ MO 2022-05-29 00:00:00 Completed [facility] Influenza Virus Vaccine 2022-05-29 00:00:00 Completed [facility] Influenza Virus Vaccine Quad .5 mL IM 6+ MO 2022-05-29 00:00:00 Completed [facility] Influenza Virus Vaccine 2022-05-29 00:00:00 Completed [facility] Influenza Virus Vaccine Quad .5 mL IM 6+ MO 2022-05-29 00:00:00 Completed [facility] Influenza Virus Vaccine 2022-05-29 00:00:00 Completed [facility] Influenza Virus Vaccine Quad .5 mL IM 6+ MO 2022-05-29 00:00:00 Completed [facility] Influenza Virus Vaccine 2022-05-29 00:00:00 Completed [facility] Influenza Virus Vaccine Quad .5 mL IM 6+ MO 2022-05-29 00:00:00 Completed [facility] Influenza Virus Vaccine 2022-05-29 00:00:00 Completed [facility] Influenza Virus Vaccine Quad .5 mL IM 6+ MO 2022-05-29 00:00:00 Completed [facility] Influenza Virus Vaccine 2022-05-29 00:00:00 Completed [facility] Influenza Virus Vaccine Quad .5 mL IM 6+ MO 2022-05-29 00:00:00 Completed [facility] Influenza Virus Vaccine 2022-05-29 00:00:00 Completed [facility] Influenza Virus Vaccine Quad .5 mL IM 6+ MO 2022-05-29 00:00:00 Completed [facility] Influenza Virus Vaccine 2022-05-29 00:00:00 Completed [facility] Influenza Virus Vaccine Quad .5 mL IM 6+ MO 2022-05-29 00:00:00 Completed [facility] Influenza Virus Vaccine 2022-05-29 00:00:00 Completed [facility] Influenza Virus Vaccine Quad .5 mL IM 6+ MO 2022-05-29 00:00:00 Completed [facility] Influenza Virus Vaccine 2022-05-29 00:00:00 Completed [facility] Influenza Virus Vaccine Quad .5 mL IM 6+ MO 2022-05-29 00:00:00 Completed [facility] Influenza Virus Vaccine 2022-05-29 00:00:00 Completed [facility] Influenza Virus Vaccine Quad .5 mL IM 6+ MO 2022-05-29 00:00:00 Completed [facility] Influenza Virus Vaccine 2022-05-29 00:00:00 Completed [facility] Influenza Virus Vaccine Quad .5 mL IM 6+ MO 2022-05-29 00:00:00 Completed [facility] Influenza Virus Vaccine 2022-05-29 00:00:00 Completed [facility] Influenza Virus Vaccine Quad .5 mL IM 6+ MO 2022-05-29 00:00:00 Completed [facility] Influenza Virus Vaccine 2022-05-29 00:00:00 Completed [facility] Influenza Virus Vaccine Quad .5 mL IM 6+ MO 2022-05-29 00:00:00 Completed [facility] Influenza Virus Vaccine 2022-05-29 00:00:00 Completed [facility] Influenza Virus Vaccine Quad .5 mL IM 6+ MO 2022-05-29 00:00:00 Completed [facility] Influenza Virus Vaccine 2022-05-29 00:00:00 Completed [facility] Influenza Virus Vaccine Quad .5 mL IM 6+ MO 2022-05-29 00:00:00 Completed [facility] Influenza Virus Vaccine 2022-05-29 00:00:00 Completed [facility] Influenza Virus Vaccine Quad .5 mL IM 6+ MO 2022-05-29 00:00:00 Completed [facility] Influenza Virus Vaccine 2022-05-29 00:00:00 Completed [facility] Influenza Virus Vaccine Quad .5 mL IM 6+ MO 2022-05-29 00:00:00 Completed [facility] Influenza Virus Vaccine 2022-05-29 00:00:00 Completed [facility] Influenza Virus Vaccine Quad .5 mL IM 6+ MO 2022-05-29 00:00:00 Completed [facility] Influenza Virus Vaccine 2022-05-29 00:00:00 Completed [facility] Influenza Virus Vaccine Quad .5 mL IM 6+ MO 2022-05-29 00:00:00 Completed [facility] Influenza Virus Vaccine 2022-05-29 00:00:00 Completed [facility] Influenza Virus Vaccine Quad .5 mL IM 6+ MO 2022-05-29 00:00:00 Completed [facility] Influenza Virus Vaccine 2022-05-29 00:00:00 Completed [facility] Influenza Virus Vaccine Quad .5 mL IM 6+ MO (FLUZONE/FLULAVAL/F LUARIX) 2022-05-29 00:00:00 Completed [facility] Influenza Virus Vaccine 2022-05-29 00:00:00 Completed [facility] Influenza Virus Vaccine Quad .5 mL IM 6+ MO (FLUZONE/FLULAVAL/F LUARIX) 2022-05-29 00:00:00 Completed [facility] Influenza Virus Vaccine 2022-05-29 00:00:00 Completed Influ[employer] Vaccine Quad .5 mL IM 6+ MO (FLUZONE/FLULAVAL/F LUARIX) 2022-05-29 00:00:00 Completed [employer] [facility] Vaccine 2022-05-29 00:00:00 Completed [employer] [facility] Vaccine Quad .5 mL IM 6+ MO (FLUZONE/FLULAVAL/F LUARIX) 2022-05-29 00:00:00 Completed [employer] [facility] Vaccine 2022-05-29 00:00:00 Completed [employer] Vaccine Quad .5 mL IM 6+ MO (FLUZONE/FLULAVAL/F LUARIX) 2022-05-29 00:00:00 Completed [employer] Vaccine Quad .5 mL IM 6+ MO 2021-07-01 00:00:00 Completed [facility] Influenza Virus Vaccine Quad .5 mL IM 6+ MO 2021-07-01 00:00:00 Completed [facility] Influenza Virus Vaccine Quad .5 mL IM 6+ MO 2021-07-01 00:00:00 Completed [facility] Influenza Virus Vaccine Quad .5 mL IM 6+ MO 2021-07-01 00:00:00 Completed [facility] Influenza Virus Vaccine Quad .5 mL IM 6+ MO 2021-07-01 00:00:00 Completed [facility] Influenza Virus Vaccine Quad .5 mL IM 6+ MO 2021-07-01 00:00:00 Completed [facility] Influenza Virus Vaccine Quad .5 mL IM 6+ MO 2021-07-01 00:00:00 Completed [facility] Influenza Virus Vaccine Quad .5 mL IM 6+ MO 2021-07-01 00:00:00 Completed [facility] Influenza Virus Vaccine Quad .5 mL IM 6+ MO 2021-07-01 00:00:00 Completed [facility] Influenza Virus Vaccine Quad .5 mL IM 6+ MO 2021-07-01 00:00:00 Completed [facility] Influenza Virus Vaccine Quad .5 mL IM 6+ MO 2021-07-01 00:00:00 Completed [facility] Influenza Virus Vaccine Quad .5 mL IM 6+ MO 2021-07-01 00:00:00 Completed [facility] Influenza Virus Vaccine Quad .5 mL IM 6+ MO 2021-07-01 00:00:00 Completed [facility] Influenza Virus Vaccine Quad .5 mL IM 6+ MO 2021-07-01 00:00:00 Completed [facility] Influenza Virus Vaccine Quad .5 mL IM 6+ MO 2021-07-01 00:00:00 Completed [facility] Influenza Virus Vaccine Quad .5 mL IM 6+ MO 2021-07-01 00:00:00 Completed [facility] Influenza Virus Vaccine Quad .5 mL IM 6+ MO 2021-07-01 00:00:00 Completed [facility] Influenza Virus Vaccine Quad .5 mL IM 6+ MO 2021-07-01 00:00:00 Completed [facility] Influenza Virus Vaccine Quad .5 mL IM 6+ MO 2021-07-01 00:00:00 Completed [facility] Influenza Virus Vaccine Quad .5 mL IM 6+ MO 2021-07-01 00:00:00 Completed [facility] Influenza Virus Vaccine Quad .5 mL IM 6+ MO 2021-07-01 00:00:00 Completed [facility] Influenza Virus Vaccine Quad .5 mL IM 6+ MO 2021-07-01 00:00:00 Completed [facility] Influenza Virus Vaccine Quad .5 mL IM 6+ MO 2021-07-01 00:00:00 Completed [facility] Influenza Virus Vaccine Quad .5 mL IM 6+ MO 2021-07-01 00:00:00 Completed [facility] Influenza Virus Vaccine Quad .5 mL IM 6+ MO 2021-07-01 00:00:00 Completed [facility] Influenza Virus Vaccine Quad .5 mL IM 6+ MO 2021-07-01 00:00:00 Completed [facility] Influenza Virus Vaccine Quad .5 mL IM 6+ MO 2021-07-01 00:00:00 Completed [facility] Influenza Virus Vaccine Quad .5 mL IM 6+ MO 2021-07-01 00:00:00 Completed [facility] Influenza Virus Vaccine Quad .5 mL IM 6+ MO 2021-07-01 00:00:00 Completed [facility] Influenza Virus Vaccine Quad .5 mL IM 6+ MO 2021-07-01 00:00:00 Completed [facility] Influenza Virus Vaccine Quad .5 mL IM 6+ MO 2021-07-01 00:00:00 Completed [facility] Influenza Virus Vaccine Quad .5 mL IM 6+ MO 2021-07-01 00:00:00 Completed [facility] Influenza Virus Vaccine Quad .5 mL IM 6+ MO 2021-07-01 00:00:00 Completed [facility] Influenza Virus Vaccine Quad .5 mL IM 6+ MO 2021-07-01 00:00:00 Completed [facility] Influenza Virus Vaccine Quad .5 mL IM 6+ MO 2021-07-01 00:00:00 Completed [facility] Influenza Virus Vaccine Quad .5 mL IM 6+ MO 2021-07-01 00:00:00 Completed [facility] Influenza Virus Vaccine Quad .5 mL IM 6+ MO 2021-07-01 00:00:00 Completed [facility] Influenza Virus Vaccine Quad .5 mL IM 6+ MO 2021-07-01 00:00:00 Completed [facility] Influenza Virus Vaccine Quad .5 mL IM 6+ MO 2021-07-01 00:00:00 Completed [facility] Influenza Virus Vaccine Quad .5 mL IM 6+ MO 2021-07-01 00:00:00 Completed [facility] Influenza Virus Vaccine Quad .5 mL IM 6+ MO 2021-07-01 00:00:00 Completed [facility] Influenza Virus Vaccine Quad .5 mL IM 6+ MO 2021-07-01 00:00:00 Completed [facility] Influenza Virus Vaccine Quad .5 mL IM 6+ MO 2021-07-01 00:00:00 Completed [facility] Influenza Virus Vaccine Quad .5 mL IM 6+ MO 2021-07-01 00:00:00 Completed [facility] Influenza Virus Vaccine Quad .5 mL IM 6+ MO 2021-07-01 00:00:00 Completed [facility] Influenza Virus Vaccine Quad .5 mL IM 6+ MO 2021-07-01 00:00:00 Completed [facility] Influenza Virus Vaccine Quad .5 mL IM 6+ MO 2021-07-01 00:00:00 Completed [facility] Influenza Virus Vaccine Quad .5 mL IM 6+ MO 2021-07-01 00:00:00 Completed [facility] Influenza Virus Vaccine Quad .5 mL IM 6+ MO 2021-07-01 00:00:00 Completed [facility] Influenza Virus Vaccine Quad .5 mL IM 6+ MO 2021-07-01 00:00:00 Completed [facility] Influenza Virus Vaccine Quad .5 mL IM 6+ MO 2021-07-01 00:00:00 Completed [facility] Influenza Virus Vaccine Quad .5 mL IM 6+ MO 2021-07-01 00:00:00 Completed [facility] Influenza Virus Vaccine Quad .5 mL IM 6+ MO 2021-07-01 00:00:00 Completed [facility] Influenza Virus Vaccine Quad .5 mL IM 6+ MO 2021-07-01 00:00:00 Completed [facility] Influenza Virus Vaccine Quad .5 mL IM 6+ MO 2021-07-01 00:00:00 Completed [facility] Influenza Virus Vaccine Quad .5 mL IM 6+ MO 2021-07-01 00:00:00 Completed [facility] Influenza Virus Vaccine Quad .5 mL IM 6+ MO 2021-07-01 00:00:00 Completed [facility] Influenza Virus Vaccine Quad .5 mL IM 6+ MO 2021-07-01 00:00:00 Completed [facility] Influenza Virus Vaccine Quad .5 mL IM 6+ MO 2021-07-01 00:00:00 Completed [facility] Influenza Virus Vaccine Quad .5 mL IM 6+ MO 2021-07-01 00:00:00 Completed [facility] Influenza Virus Vaccine Quad .5 mL IM 6+ MO 2021-07-01 00:00:00 Completed [facility] Influenza Virus Vaccine Quad .5 mL IM 6+ MO 2021-07-01 00:00:00 Completed [facility] Influenza Virus Vaccine Quad .5 mL IM 6+ MO 2021-07-01 00:00:00 Completed [facility] Influenza Virus Vaccine Quad .5 mL IM 6+ MO 2021-07-01 00:00:00 Completed [facility] Influenza Virus Vaccine Quad .5 mL IM 6+ MO 2021-07-01 00:00:00 Completed [facility] Influenza Virus Vaccine Quad .5 mL IM 6+ MO 2021-07-01 00:00:00 Completed [facility] Influenza Virus Vaccine Quad .5 mL IM 6+ MO 2021-07-01 00:00:00 Completed [facility] Influenza Virus Vaccine Quad .5 mL IM 6+ MO 2021-07-01 00:00:00 Completed [facility] Influenza Virus Vaccine Quad .5 mL IM 6+ MO 2021-07-01 00:00:00 Completed [facility] Influenza Virus Vaccine Quad .5 mL IM 6+ MO 2021-07-01 00:00:00 Completed [facility] Influenza Virus Vaccine Quad .5 mL IM 6+ MO 2021-07-01 00:00:00 Completed [facility] Influenza Virus Vaccine Quad .5 mL IM 6+ MO 2021-07-01 00:00:00 Completed [facility] Influenza Virus Vaccine Quad .5 mL IM 6+ MO 2021-07-01 00:00:00 Completed [facility] Influenza Virus Vaccine Quad .5 mL IM 6+ MO 2021-07-01 00:00:00 Completed [facility] Influenza Virus Vaccine Quad .5 mL IM 6+ MO 2021-07-01 00:00:00 Completed [facility] Influenza Virus Vaccine Quad .5 mL IM 6+ MO 2021-07-01 00:00:00 Completed [facility] Influenza Virus Vaccine Quad .5 mL IM 6+ MO 2021-07-01 00:00:00 Completed [facility] Influenza Virus Vaccine Quad .5 mL IM 6+ MO 2021-07-01 00:00:00 Completed [facility] Influenza Virus Vaccine Quad .5 mL IM 6+ MO 2021-07-01 00:00:00 Completed [facility] Influenza Virus Vaccine Quad .5 mL IM 6+ MO 2021-07-01 00:00:00 Completed [facility] Influenza Virus Vaccine Quad .5 mL IM 6+ MO 2021-07-01 00:00:00 Completed [facility] Influenza Virus Vaccine Quad .5 mL IM 6+ MO 2021-07-01 00:00:00 Completed [facility] Influenza Virus Vaccine Quad .5 mL IM 6+ MO 2021-07-01 00:00:00 Completed [facility] Influenza Virus Vaccine Quad .5 mL IM 6+ MO 2021-07-01 00:00:00 Completed [facility] Influenza Virus Vaccine Quad .5 mL IM 6+ MO 2021-07-01 00:00:00 Completed [facility] Influenza Virus Vaccine Quad .5 mL IM 6+ MO 2021-07-01 00:00:00 Completed [facility] Influenza Virus Vaccine Quad .5 mL IM 6+ MO 2021-07-01 00:00:00 Completed [facility] Influenza Virus Vaccine Quad .5 mL IM 6+ MO 2021-07-01 00:00:00 Completed [facility] Influenza Virus Vaccine Quad .5 mL IM 6+ MO 2021-07-01 00:00:00 Completed [facility] Influenza Virus Vaccine Quad .5 mL IM 6+ MO 2021-07-01 00:00:00 Completed [facility] Influenza Virus Vaccine Quad .5 mL IM 6+ MO 2021-07-01 00:00:00 Completed [facility] Influenza Virus Vaccine Quad .5 mL IM 6+ MO 2021-07-01 00:00:00 Completed [facility] Influenza Virus Vaccine Quad .5 mL IM 6+ MO 2021-07-01 00:00:00 Completed [facility] Influenza Virus Vaccine Quad .5 mL IM 6+ MO 2021-07-01 00:00:00 Completed [facility] Influenza Virus Vaccine Quad .5 mL IM 6+ MO 2021-07-01 00:00:00 Completed [facility] Influenza Virus Vaccine Quad .5 mL IM 6+ MO 2021-07-01 00:00:00 Completed [facility] Influenza Virus Vaccine Quad .5 mL IM 6+ MO (FLUZONE/FLULAVAL/F LUARIX) 2021-07-01 00:00:00 Completed [facility] Influenza Virus Vaccine Quad .5 mL IM 6+ MO (FLUZONE/FLULAVAL/F LUARIX) 2021-07-01 00:00:00 Completed [facility] Influenza Virus Vaccine Quad .5 mL IM 6+ MO (FLUZONE/FLULAVAL/F LUARIX) 2021-07-01 00:00:00 Completed [facility] Influenza Virus Vaccine Quad .5 mL IM 6+ MO (FLUZONE/FLULAVAL/F LUARIX) 2021-07-01 00:00:00 Completed [facility] Influenza Virus Vaccine Quad .5 mL IM 6+ MO (FLUZONE/FLULAVAL/F LUARIX) 2021-07-01 00:00:00 Completed [facility] Influenza Virus Vaccine Quad .5 mL IM 6+ MO 2021-07-01 00:00:00 Completed [facility] Influenza Virus Vaccine Quad .5 mL IM 6+ MO 2021-07-01 00:00:00 Completed [facility] Influenza Virus Vaccine Quad .5 mL IM 6+ MO 2021-07-01 00:00:00 Completed [facility] Influenza Virus Vaccine Quad .5 mL IM 6+ MO 2021-07-01 00:00:00 Completed [facility] Influenza Virus Vaccine Quad .5 mL IM 6+ MO 2021-07-01 00:00:00 Completed [facility] Influenza Virus Vaccine Quad .5 mL IM 6+ MO 2021-07-01 00:00:00 Completed [facility] Influenza Virus Vaccine Quad .5 mL IM 6+ MO 2021-07-01 00:00:00 Completed [facility] Influenza Virus Vaccine Quad .5 mL IM 6+ MO 2021-07-01 00:00:00 Completed [facility] Influenza Virus Vaccine Quad .5 mL IM 6+ MO 2021-07-01 00:00:00 Completed [facility] Influenza Virus Vaccine Quad .5 mL IM 6+ MO 2021-07-01 00:00:00 Completed [facility] Influenza Virus Vaccine Quad .5 mL IM 6+ MO 2021-07-01 00:00:00 Completed [facility] Influenza Virus Vaccine Quad .5 mL IM 6+ MO 2021-07-01 00:00:00 Completed [facility] Influenza Virus Vaccine Quad .5 mL IM 6+ MO 2021-07-01 00:00:00 Completed [facility] Influenza Virus Vaccine Quad .5 mL IM 6+ MO 2021-07-01 00:00:00 Completed [facility] Influenza Virus Vaccine Quad .5 mL IM 6+ MO 2021-07-01 00:00:00 Completed [facility] Influenza Virus Vaccine Quad .5 mL IM 6+ MO 2021-07-01 00:00:00 Completed [facility] Influenza Virus Vaccine Quad .5 mL IM 6+ MO 2021-07-01 00:00:00 Completed [facility] Influenza Virus Vaccine Quad .5 mL IM 6+ MO 2021-07-01 00:00:00 Completed [facility] Influenza Virus Vaccine Quad .5 mL IM 6+ MO 2021-07-01 00:00:00 Completed [facility] Influenza Virus Vaccine Quad .5 mL IM 6+ MO 2021-07-01 00:00:00 Completed [facility] Influenza Virus Vaccine Quad .5 mL IM 6+ MO 2021-07-01 00:00:00 Completed [facility] Influenza Virus Vaccine Quad .5 mL IM 6+ MO 2021-07-01 00:00:00 Completed [facility] Influenza Virus Vaccine Quad .5 mL IM 6+ MO 2021-07-01 00:00:00 Completed [facility] Influenza Virus Vaccine Quad .5 mL IM 6+ MO 2021-07-01 00:00:00 Completed [facility] Influenza Virus Vaccine Quad .5 mL IM 6+ MO 2021-07-01 00:00:00 Completed [facility] Influenza Virus Vaccine Quad .5 mL IM 6+ MO 2021-07-01 00:00:00 Completed [facility] Influenza Virus Vaccine Quad .5 mL IM 6+ MO 2021-07-01 00:00:00 Completed [facility] Influenza Virus Vaccine Quad .5 mL IM 6+ MO 2021-07-01 00:00:00 Completed [facility] Influenza Virus Vaccine Quad .5 mL IM 6+ MO 2021-07-01 00:00:00 Completed [facility] Influenza Virus Vaccine Quad .5 mL IM 6+ MO 2021-07-01 00:00:00 Completed [facility] Influenza Virus Vaccine Quad .5 mL IM 6+ MO 2021-07-01 00:00:00 Completed [facility] Influenza Virus Vaccine Quad .5 mL IM 6+ MO 2021-07-01 00:00:00 Completed [facility] Influenza Virus Vaccine Quad .5 mL IM 6+ MO 2021-07-01 00:00:00 Completed [facility] Influenza Virus Vaccine Quad .5 mL IM 6+ MO 2021-07-01 00:00:00 Completed [facility] Influenza Virus Vaccine Quad .5 mL IM 6+ MO 2021-07-01 00:00:00 Completed [facility] Influenza Virus Vaccine Quad .5 mL IM 6+ MO 2021-07-01 00:00:00 Completed [facility] Influenza Virus Vaccine Quad .5 mL IM 6+ MO 2021-07-01 00:00:00 Completed [facility] Pneumococcal Polysaccharide, PPSV23 (PNEUMOVAX) 2020-07-13 00:00:00 Completed [facility] Pneumococcal Polysaccharide, PPSV23 (PNEUMOVAX) 2020-07-13 00:00:00 Completed [facility] Pneumococcal Polysaccharide, PPSV23 (PNEUMOVAX) 2020-07-13 00:00:00 Completed [facility] Pneumococcal Polysaccharide, PPSV23 (PNEUMOVAX) 2020-07-13 00:00:00 Completed [facility] Pneumococcal Polysaccharide, PPSV23 (PNEUMOVAX) 2020-07-13 00:00:00 Completed [facility] Pneumococcal Polysaccharide, PPSV23 (PNEUMOVAX) 2020-07-13 00:00:00 Completed [facility] Pneumococcal Polysaccharide, PPSV23 (PNEUMOVAX) 2020-07-13 00:00:00 Completed [facility] Pneumococcal Polysaccharide, PPSV23 (PNEUMOVAX) 2020-07-13 00:00:00 Completed [facility] Pneumococcal Polysaccharide, PPSV23 (PNEUMOVAX) 2020-07-13 00:00:00 Completed [facility] Pneumococcal Polysaccharide, PPSV23 (PNEUMOVAX) 2020-07-13 00:00:00 Completed [facility] Pneumococcal Polysaccharide, PPSV23 (PNEUMOVAX) 2020-07-13 00:00:00 Completed [facility] Pneumococcal Polysaccharide, PPSV23 (PNEUMOVAX) 2020-07-13 00:00:00 Completed [facility] Pneumococcal Polysaccharide, PPSV23 (PNEUMOVAX) 2020-07-13 00:00:00 Completed [facility] Pneumococcal Polysaccharide, PPSV23 (PNEUMOVAX) 2020-07-13 00:00:00 Completed [facility] Pneumococcal Polysaccharide, PPSV23 (PNEUMOVAX) 2020-07-13 00:00:00 Completed [facility] Pneumococcal Polysaccharide, PPSV23 (PNEUMOVAX) 2020-07-13 00:00:00 Completed [facility] Pneumococcal Polysaccharide, PPSV23 (PNEUMOVAX) 2020-07-13 00:00:00 Completed [facility] Pneumococcal Polysaccharide, PPSV23 (PNEUMOVAX) 2020-07-13 00:00:00 Completed [facility] Pneumococcal Polysaccharide, PPSV23 (PNEUMOVAX) 2020-07-13 00:00:00 Completed [facility] Pneumococcal Polysaccharide, PPSV23 (PNEUMOVAX) 2020-07-13 00:00:00 Completed [facility] Pneumococcal Polysaccharide, PPSV23 (PNEUMOVAX) 2020-07-13 00:00:00 Completed [facility] Pneumococcal Polysaccharide, PPSV23 (PNEUMOVAX) 2020-07-13 00:00:00 Completed [facility] Pneumococcal Polysaccharide, PPSV23 (PNEUMOVAX) 2020-07-13 00:00:00 Completed [facility] Pneumococcal Polysaccharide, PPSV23 (PNEUMOVAX) 2020-07-13 00:00:00 Completed [facility] Pneumococcal Polysaccharide, PPSV23 (PNEUMOVAX) 2020-07-13 00:00:00 Completed [facility] Pneumococcal Polysaccharide, PPSV23 (PNEUMOVAX) 2020-07-13 00:00:00 Completed [facility] Pneumococcal Polysaccharide, PPSV23 (PNEUMOVAX) 2020-07-13 00:00:00 Completed [facility] Pneumococcal Polysaccharide, PPSV23 (PNEUMOVAX) 2020-07-13 00:00:00 Completed [facility] Pneumococcal Polysaccharide, PPSV23 (PNEUMOVAX) 2020-07-13 00:00:00 Completed [facility] Pneumococcal Polysaccharide, PPSV23 (PNEUMOVAX) 2020-07-13 00:00:00 Completed [facility] Pneumococcal Polysaccharide, PPSV23 (PNEUMOVAX) 2020-07-13 00:00:00 Completed [facility] Pneumococcal Polysaccharide, PPSV23 (PNEUMOVAX) 2020-07-13 00:00:00 Completed [facility] Pneumococcal Polysaccharide, PPSV23 (PNEUMOVAX) 2020-07-13 00:00:00 Completed [facility] Pneumococcal Polysaccharide, PPSV23 (PNEUMOVAX) 2020-07-13 00:00:00 Completed [facility] Pneumococcal Polysaccharide, PPSV23 (PNEUMOVAX) 2020-07-13 00:00:00 Completed [facility] Pneumococcal Polysaccharide, PPSV23 (PNEUMOVAX) 2020-07-13 00:00:00 Completed [facility] Pneumococcal Polysaccharide, PPSV23 (PNEUMOVAX) 2020-07-13 00:00:00 Completed [facility] Pneumococcal Polysaccharide, PPSV23 (PNEUMOVAX) 2020-07-13 00:00:00 Completed [facility] Pneumococcal Polysaccharide, PPSV23 (PNEUMOVAX) 2020-07-13 00:00:00 Completed [facility] Pneumococcal Polysaccharide, PPSV23 (PNEUMOVAX) 2020-07-13 00:00:00 Completed [facility] Pneumococcal Polysaccharide, PPSV23 (PNEUMOVAX) 2020-07-13 00:00:00 Completed [facility] Pneumococcal Polysaccharide, PPSV23 (PNEUMOVAX) 2020-07-13 00:00:00 Completed [facility] Pneumococcal Polysaccharide, PPSV23 (PNEUMOVAX) 2020-07-13 00:00:00 Completed [facility] Pneumococcal Polysaccharide, PPSV23 (PNEUMOVAX) 2020-07-13 00:00:00 Completed [facility] Pneumococcal Polysaccharide, PPSV23 (PNEUMOVAX) 2020-07-13 00:00:00 Completed [facility] Pneumococcal Polysaccharide, PPSV23 (PNEUMOVAX) 2020-07-13 00:00:00 Completed [facility] Pneumococcal Polysaccharide, PPSV23 (PNEUMOVAX) 2020-07-13 00:00:00 Completed [facility] Pneumococcal Polysaccharide, PPSV23 (PNEUMOVAX) 2020-07-13 00:00:00 Completed [facility] Pneumococcal Polysaccharide, PPSV23 (PNEUMOVAX) 2020-07-13 00:00:00 Completed [facility] Pneumococcal Polysaccharide, PPSV23 (PNEUMOVAX) 2020-07-13 00:00:00 Completed [facility] Pneumococcal Polysaccharide, PPSV23 (PNEUMOVAX) 2020-07-13 00:00:00 Completed [facility] Pneumococcal Polysaccharide, PPSV23 (PNEUMOVAX) 2020-07-13 00:00:00 Completed [facility] Pneumococcal Polysaccharide, PPSV23 (PNEUMOVAX) 2020-07-13 00:00:00 Completed [facility] Pneumococcal Polysaccharide, PPSV23 (PNEUMOVAX) 2020-07-13 00:00:00 Completed [facility] Pneumococcal Polysaccharide, PPSV23 (PNEUMOVAX) 2020-07-13 00:00:00 Completed [facility] Pneumococcal Polysaccharide, PPSV23 (PNEUMOVAX) 2020-07-13 00:00:00 Completed [facility] Pneumococcal Polysaccharide, PPSV23 (PNEUMOVAX) 2020-07-13 00:00:00 Completed [facility] Pneumococcal Polysaccharide, PPSV23 (PNEUMOVAX) 2020-07-13 00:00:00 Completed [facility] Pneumococcal Polysaccharide, PPSV23 (PNEUMOVAX) 2020-07-13 00:00:00 Completed [facility] Pneumococcal Polysaccharide, PPSV23 (PNEUMOVAX) 2020-07-13 00:00:00 Completed [facility] Pneumococcal Polysaccharide, PPSV23 (PNEUMOVAX) 2020-07-13 00:00:00 Completed [facility] Pneumococcal Polysaccharide, PPSV23 (PNEUMOVAX) 2020-07-13 00:00:00 Completed [facility] Pneumococcal Polysaccharide, PPSV23 (PNEUMOVAX) 2020-07-13 00:00:00 Completed [facility] Pneumococcal Polysaccharide, PPSV23 (PNEUMOVAX) 2020-07-13 00:00:00 Completed [facility] Pneumococcal Polysaccharide, PPSV23 (PNEUMOVAX) 2020-07-13 00:00:00 Completed [facility] Pneumococcal Polysaccharide, PPSV23 (PNEUMOVAX) 2020-07-13 00:00:00 Completed [facility] Pneumococcal Polysaccharide, PPSV23 (PNEUMOVAX) 2020-07-13 00:00:00 Completed [facility] Pneumococcal Polysaccharide, PPSV23 (PNEUMOVAX) 2020-07-13 00:00:00 Completed [facility] Pneumococcal Polysaccharide, PPSV23 (PNEUMOVAX) 2020-07-13 00:00:00 Completed [facility] Pneumococcal Polysaccharide, PPSV23 (PNEUMOVAX) 2020-07-13 00:00:00 Completed [facility] Pneumococcal Polysaccharide, PPSV23 (PNEUMOVAX) 2020-07-13 00:00:00 Completed [facility] Pneumococcal Polysaccharide, PPSV23 (PNEUMOVAX) 2020-07-13 00:00:00 Completed [facility] Pneumococcal Polysaccharide, PPSV23 (PNEUMOVAX) 2020-07-13 00:00:00 Completed [facility] Pneumococcal Polysaccharide, PPSV23 (PNEUMOVAX) 2020-07-13 00:00:00 Completed [facility] Pneumococcal Polysaccharide, PPSV23 (PNEUMOVAX) 2020-07-13 00:00:00 Completed [facility] Pneumococcal Polysaccharide, PPSV23 (PNEUMOVAX) 2020-07-13 00:00:00 Completed [facility] Pneumococcal Polysaccharide, PPSV23 (PNEUMOVAX) 2020-07-13 00:00:00 Completed [facility] Pneumococcal Polysaccharide, PPSV23 (PNEUMOVAX) 2020-07-13 00:00:00 Completed [facility] Pneumococcal Polysaccharide, PPSV23 (PNEUMOVAX) 2020-07-13 00:00:00 Completed [facility] Pneumococcal Polysaccharide, PPSV23 (PNEUMOVAX) 2020-07-13 00:00:00 Completed [facility] Pneumococcal Polysaccharide, PPSV23 (PNEUMOVAX) 2020-07-13 00:00:00 Completed [facility] Pneumococcal Polysaccharide, PPSV23 (PNEUMOVAX) 2020-07-13 00:00:00 Completed [facility] Pneumococcal Polysaccharide, PPSV23 (PNEUMOVAX) 2020-07-13 00:00:00 Completed [facility] Pneumococcal Polysaccharide, PPSV23 (PNEUMOVAX) 2020-07-13 00:00:00 Completed [facility] Pneumococcal Polysaccharide, PPSV23 (PNEUMOVAX) 2020-07-13 00:00:00 Completed [facility] Pneumococcal Polysaccharide, PPSV23 (PNEUMOVAX) 2020-07-13 00:00:00 Completed [facility] Pneumococcal Polysaccharide, PPSV23 (PNEUMOVAX) 2020-07-13 00:00:00 Completed [facility] Pneumococcal Polysaccharide, PPSV23 (PNEUMOVAX) 2020-07-13 00:00:00 Completed [facility] Pneumococcal Polysaccharide, PPSV23 (PNEUMOVAX) 2020-07-13 00:00:00 Completed [facility] Pneumococcal Polysaccharide, PPSV23 (PNEUMOVAX) 2020-07-13 00:00:00 Completed [facility] Pneumococcal Polysaccharide, PPSV23 (PNEUMOVAX) 2020-07-13 00:00:00 Completed [facility] Pneumococcal Polysaccharide, PPSV23 (PNEUMOVAX) 2020-07-13 00:00:00 Completed [facility] Pneumococcal Polysaccharide, PPSV23 (PNEUMOVAX) 2020-07-13 00:00:00 Completed [facility] Pneumococcal Polysaccharide, PPSV23 (PNEUMOVAX) 2020-07-13 00:00:00 Completed [facility] Pneumococcal Polysaccharide, PPSV23 (PNEUMOVAX) 2020-07-13 00:00:00 Completed [facility] Pneumococcal Polysaccharide, PPSV23 (PNEUMOVAX) 2020-07-13 00:00:00 Completed [facility] Pneumococcal Polysaccharide, PPSV23 (PNEUMOVAX) 2020-07-13 00:00:00 Completed [facility] Pneumococcal Polysaccharide, PPSV23 (PNEUMOVAX) 2020-07-13 00:00:00 Completed [facility] Pneumococcal Polysaccharide, PPSV23 (PNEUMOVAX) 2020-07-13 00:00:00 Completed [facility] Pneumococcal Polysaccharide, PPSV23 (PNEUMOVAX) 2020-07-13 00:00:00 Completed Pneumococcal Polysaccharide, PPSV23 (PNEUMOVAX) 2020-07-13 00:00:00 Completed Pneumococcal Polysaccharide, PPSV23 (PNEUMOVAX) 2020-07-13 00:00:00 Completed Pneumococcal Polysaccharide, PPSV23 (PNEUMOVAX) 2020-07-13 00:00:00 Completed [facility] Pneumococcal Polysaccharide, PPSV23 (PNEUMOVAX) 2020-07-13 00:00:00 Completed [facility] Pneumococcal Polysaccharide, PPSV23 (PNEUMOVAX) 2020-07-13 00:00:00 Completed [facility] Pneumococcal Polysaccharide, PPSV23 (PNEUMOVAX) 2020-07-13 00:00:00 Completed [facility] Pneumococcal Polysaccharide, PPSV23 (PNEUMOVAX) 2020-07-13 00:00:00 Completed [facility] Pneumococcal Polysaccharide, PPSV23 (PNEUMOVAX) 2020-07-13 00:00:00 Completed [facility] Pneumococcal Polysaccharide, PPSV23 (PNEUMOVAX) 2020-07-13 00:00:00 Completed [facility] Pneumococcal Polysaccharide, PPSV23 (PNEUMOVAX) 2020-07-13 00:00:00 Completed [facility] Pneumococcal Polysaccharide, PPSV23 (PNEUMOVAX) 2020-07-13 00:00:00 Completed [facility] Pneumococcal Polysaccharide, PPSV23 (PNEUMOVAX) 2020-07-13 00:00:00 Completed [facility] Pneumococcal Polysaccharide, PPSV23 (PNEUMOVAX) 2020-07-13 00:00:00 Completed [facility] Pneumococcal Polysaccharide, PPSV23 (PNEUMOVAX) 2020-07-13 00:00:00 Completed [facility] Pneumococcal Polysaccharide, PPSV23 (PNEUMOVAX) 2020-07-13 00:00:00 Completed [facility] Pneumococcal Polysaccharide, PPSV23 (PNEUMOVAX) 2020-07-13 00:00:00 Completed [facility] Pneumococcal Polysaccharide, PPSV23 (PNEUMOVAX) 2020-07-13 00:00:00 Completed [facility] Pneumococcal Polysaccharide, PPSV23 (PNEUMOVAX) 2020-07-13 00:00:00 Completed [facility] Pneumococcal Polysaccharide, PPSV23 (PNEUMOVAX) 2020-07-13 00:00:00 Completed [facility] Pneumococcal Polysaccharide, PPSV23 (PNEUMOVAX) 2020-07-13 00:00:00 Completed [facility] Pneumococcal Polysaccharide, PPSV23 (PNEUMOVAX) 2020-07-13 00:00:00 Completed [facility] Pneumococcal Polysaccharide, PPSV23 (PNEUMOVAX) 2020-07-13 00:00:00 Completed [facility] Pneumococcal Polysaccharide, PPSV23 (PNEUMOVAX) 2020-07-13 00:00:00 Completed [facility] Pneumococcal Polysaccharide, PPSV23 (PNEUMOVAX) 2020-07-13 00:00:00 Completed [facility] Pneumococcal Polysaccharide, PPSV23 (PNEUMOVAX) 2020-07-13 00:00:00 Completed [facility] Pneumococcal Polysaccharide, PPSV23 (PNEUMOVAX) 2020-07-13 00:00:00 Completed [facility] Pneumococcal Polysaccharide, PPSV23 (PNEUMOVAX) 2020-07-13 00:00:00 Completed [facility] Pneumococcal Polysaccharide, PPSV23 (PNEUMOVAX) 2020-07-13 00:00:00 Completed [facility] Pneumococcal Polysaccharide, PPSV23 (PNEUMOVAX) 2020-07-13 00:00:00 Completed [facility] Pneumococcal Polysaccharide, PPSV23 (PNEUMOVAX) 2020-07-13 00:00:00 Completed [facility] Pneumococcal Polysaccharide, PPSV23 (PNEUMOVAX) 2020-07-13 00:00:00 Completed [facility] Pneumococcal Polysaccharide, PPSV23 (PNEUMOVAX) 2020-07-13 00:00:00 Completed [facility] Pneumococcal Polysaccharide, PPSV23 (PNEUMOVAX) 2020-07-13 00:00:00 Completed [facility] Pneumococcal Polysaccharide, PPSV23 (PNEUMOVAX) 2020-07-13 00:00:00 Completed [facility] Pneumococcal Polysaccharide, PPSV23 (PNEUMOVAX) 2020-07-13 00:00:00 Completed [facility] Pneumococcal Polysaccharide, PPSV23 (PNEUMOVAX) 2020-07-13 00:00:00 Completed [facility] Pneumococcal Polysaccharide, PPSV23 (PNEUMOVAX) 2020-07-13 00:00:00 Completed [facility] Pneumococcal Polysaccharide, PPSV23 (PNEUMOVAX) 2020-07-13 00:00:00 Completed [facility] Pneumococcal Polysaccharide, PPSV23 (PNEUMOVAX) 2020-07-13 00:00:00 Completed [facility] Influenza Virus Vaccine Quad .5 mL IM 6+ MO 2020-05-13 00:00:00 Completed [facility] Influenza Virus Vaccine Quad .5 mL IM 6+ MO 2020-05-13 00:00:00 Completed [facility] Influenza Virus Vaccine Quad .5 mL IM 6+ MO 2020-05-13 00:00:00 Completed [facility] Influenza Virus Vaccine Quad .5 mL IM 6+ MO 2020-05-13 00:00:00 Completed [facility] Influenza Virus Vaccine Quad .5 mL IM 6+ MO 2020-05-13 00:00:00 Completed [facility] Influenza Virus Vaccine Quad .5 mL IM 6+ MO 2020-05-13 00:00:00 Completed [facility] Influenza Virus Vaccine Quad .5 mL IM 6+ MO 2020-05-13 00:00:00 Completed [facility] Influenza Virus Vaccine Quad .5 mL IM 6+ MO 2020-05-13 00:00:00 Completed [facility] Influenza Virus Vaccine Quad .5 mL IM 6+ MO 2020-05-13 00:00:00 Completed [facility] Influenza Virus Vaccine Quad .5 mL IM 6+ MO 2020-05-13 00:00:00 Completed [facility] Influenza Virus Vaccine Quad .5 mL IM 6+ MO 2020-05-13 00:00:00 Completed [facility] Influenza Virus Vaccine Quad .5 mL IM 6+ MO 2020-05-13 00:00:00 Completed [facility] Influenza Virus Vaccine Quad .5 mL IM 6+ MO 2020-05-13 00:00:00 Completed [facility] Influenza Virus Vaccine Quad .5 mL IM 6+ MO 2020-05-13 00:00:00 Completed [facility] Influenza Virus Vaccine Quad .5 mL IM 6+ MO 2020-05-13 00:00:00 Completed [facility] Influenza Virus Vaccine Quad .5 mL IM 6+ MO 2020-05-13 00:00:00 Completed [facility] Influenza Virus Vaccine Quad .5 mL IM 6+ MO 2020-05-13 00:00:00 Completed [facility] Influenza Virus Vaccine Quad .5 mL IM 6+ MO 2020-05-13 00:00:00 Completed [facility] Influenza Virus Vaccine Quad .5 mL IM 6+ MO 2020-05-13 00:00:00 Completed [facility] Influenza Virus Vaccine Quad .5 mL IM 6+ MO 2020-05-13 00:00:00 Completed [facility] Influenza Virus Vaccine Quad .5 mL IM 6+ MO 2020-05-13 00:00:00 Completed [facility] Influenza Virus Vaccine Quad .5 mL IM 6+ MO 2020-05-13 00:00:00 Completed [facility] Influenza Virus Vaccine Quad .5 mL IM 6+ MO 2020-05-13 00:00:00 Completed [facility] Influenza Virus Vaccine Quad .5 mL IM 6+ MO 2020-05-13 00:00:00 Completed [facility] Influenza Virus Vaccine Quad .5 mL IM 6+ MO 2020-05-13 00:00:00 Completed [facility] Influenza Virus Vaccine Quad .5 mL IM 6+ MO 2020-05-13 00:00:00 Completed [facility] Influenza Virus Vaccine Quad .5 mL IM 6+ MO 2020-05-13 00:00:00 Completed [facility] Influenza Virus Vaccine Quad .5 mL IM 6+ MO 2020-05-13 00:00:00 Completed [facility] Influenza Virus Vaccine Quad .5 mL IM 6+ MO 2020-05-13 00:00:00 Completed [facility] Influenza Virus Vaccine Quad .5 mL IM 6+ MO 2020-05-13 00:00:00 Completed [facility] Influenza Virus Vaccine Quad .5 mL IM 6+ MO 2020-05-13 00:00:00 Completed [facility] Influenza Virus Vaccine Quad .5 mL IM 6+ MO 2020-05-13 00:00:00 Completed [facility] Influenza Virus Vaccine Quad .5 mL IM 6+ MO 2020-05-13 00:00:00 Completed [facility] Influenza Virus Vaccine Quad .5 mL IM 6+ MO 2020-05-13 00:00:00 Completed [facility] Influenza Virus Vaccine Quad .5 mL IM 6+ MO 2020-05-13 00:00:00 Completed [facility] Influenza Virus Vaccine Quad .5 mL IM 6+ MO 2020-05-13 00:00:00 Completed [facility] Influenza Virus Vaccine Quad .5 mL IM 6+ MO 2020-05-13 00:00:00 Completed [facility] Influenza Virus Vaccine Quad .5 mL IM 6+ MO 2020-05-13 00:00:00 Completed [facility] Influenza Virus Vaccine Quad .5 mL IM 6+ MO 2020-05-13 00:00:00 Completed [facility] Influenza Virus Vaccine Quad .5 mL IM 6+ MO 2020-05-13 00:00:00 Completed [facility] Influenza Virus Vaccine Quad .5 mL IM 6+ MO 2020-05-13 00:00:00 Completed [facility] Influenza Virus Vaccine Quad .5 mL IM 6+ MO 2020-05-13 00:00:00 Completed [facility] Influenza Virus Vaccine Quad .5 mL IM 6+ MO 2020-05-13 00:00:00 Completed [facility] Influenza Virus Vaccine Quad .5 mL IM 6+ MO 2020-05-13 00:00:00 Completed [facility] Influenza Virus Vaccine Quad .5 mL IM 6+ MO 2020-05-13 00:00:00 Completed [facility] Influenza Virus Vaccine Quad .5 mL IM 6+ MO 2020-05-13 00:00:00 Completed [facility] Influenza Virus Vaccine Quad .5 mL IM 6+ MO 2020-05-13 00:00:00 Completed [facility] Influenza Virus Vaccine Quad .5 mL IM 6+ MO 2020-05-13 00:00:00 Completed [facility] Influenza Virus Vaccine Quad .5 mL IM 6+ MO 2020-05-13 00:00:00 Completed [facility] Influenza Virus Vaccine Quad .5 mL IM 6+ MO 2020-05-13 00:00:00 Completed [facility] Influenza Virus Vaccine Quad .5 mL IM 6+ MO 2020-05-13 00:00:00 Completed [facility] Influenza Virus Vaccine Quad .5 mL IM 6+ MO 2020-05-13 00:00:00 Completed [facility] Influenza Virus Vaccine Quad .5 mL IM 6+ MO 2020-05-13 00:00:00 Completed [facility] Influenza Virus Vaccine Quad .5 mL IM 6+ MO 2020-05-13 00:00:00 Completed [facility] Influenza Virus Vaccine Quad .5 mL IM 6+ MO 2020-05-13 00:00:00 Completed [facility] Influenza Virus Vaccine Quad .5 mL IM 6+ MO 2020-05-13 00:00:00 Completed [facility] Influenza Virus Vaccine Quad .5 mL IM 6+ MO 2020-05-13 00:00:00 Completed [facility] Influenza Virus Vaccine Quad .5 mL IM 6+ MO 2020-05-13 00:00:00 Completed [facility] Influenza Virus Vaccine Quad .5 mL IM 6+ MO 2020-05-13 00:00:00 Completed [facility] Influenza Virus Vaccine Quad .5 mL IM 6+ MO 2020-05-13 00:00:00 Completed [facility] Influenza Virus Vaccine Quad .5 mL IM 6+ MO 2020-05-13 00:00:00 Completed [facility] Influenza Virus Vaccine Quad .5 mL IM 6+ MO 2020-05-13 00:00:00 Completed [facility] Influenza Virus Vaccine Quad .5 mL IM 6+ MO 2020-05-13 00:00:00 Completed [facility] Influenza Virus Vaccine Quad .5 mL IM 6+ MO 2020-05-13 00:00:00 Completed [facility] Influenza Virus Vaccine Quad .5 mL IM 6+ MO 2020-05-13 00:00:00 Completed [facility] Influenza Virus Vaccine Quad .5 mL IM 6+ MO 2020-05-13 00:00:00 Completed [facility] Influenza Virus Vaccine Quad .5 mL IM 6+ MO 2020-05-13 00:00:00 Completed [facility] Influenza Virus Vaccine Quad .5 mL IM 6+ MO 2020-05-13 00:00:00 Completed [facility] Influenza Virus Vaccine Quad .5 mL IM 6+ MO 2020-05-13 00:00:00 Completed [facility] Influenza Virus Vaccine Quad .5 mL IM 6+ MO 2020-05-13 00:00:00 Completed [facility] Influenza Virus Vaccine Quad .5 mL IM 6+ MO 2020-05-13 00:00:00 Completed [facility] Influenza Virus Vaccine Quad .5 mL IM 6+ MO 2020-05-13 00:00:00 Completed [facility] Influenza Virus Vaccine Quad .5 mL IM 6+ MO 2020-05-13 00:00:00 Completed [facility] Influenza Virus Vaccine Quad .5 mL IM 6+ MO 2020-05-13 00:00:00 Completed [facility] Influenza Virus Vaccine Quad .5 mL IM 6+ MO 2020-05-13 00:00:00 Completed [facility] Influenza Virus Vaccine Quad .5 mL IM 6+ MO 2020-05-13 00:00:00 Completed [facility] Influenza Virus Vaccine Quad .5 mL IM 6+ MO 2020-05-13 00:00:00 Completed [facility] Influenza Virus Vaccine Quad .5 mL IM 6+ MO 2020-05-13 00:00:00 Completed [facility] Influenza Virus Vaccine Quad .5 mL IM 6+ MO 2020-05-13 00:00:00 Completed [facility] Influenza Virus Vaccine Quad .5 mL IM 6+ MO 2020-05-13 00:00:00 Completed [facility] Influenza Virus Vaccine Quad .5 mL IM 6+ MO 2020-05-13 00:00:00 Completed [facility] Influenza Virus Vaccine Quad .5 mL IM 6+ MO 2020-05-13 00:00:00 Completed [facility] Influenza Virus Vaccine Quad .5 mL IM 6+ MO 2020-05-13 00:00:00 Completed [facility] Influenza Virus Vaccine Quad .5 mL IM 6+ MO 2020-05-13 00:00:00 Completed [facility] Influenza Virus Vaccine Quad .5 mL IM 6+ MO 2020-05-13 00:00:00 Completed [facility] Influenza Virus Vaccine Quad .5 mL IM 6+ MO 2020-05-13 00:00:00 Completed [facility] Influenza Virus Vaccine Quad .5 mL IM 6+ MO 2020-05-13 00:00:00 Completed [facility] Influenza Virus Vaccine Quad .5 mL IM 6+ MO 2020-05-13 00:00:00 Completed [facility] Influenza Virus Vaccine Quad .5 mL IM 6+ MO 2020-05-13 00:00:00 Completed [facility] Influenza Virus Vaccine Quad .5 mL IM 6+ MO 2020-05-13 00:00:00 Completed [facility] Influenza Virus Vaccine Quad .5 mL IM 6+ MO 2020-05-13 00:00:00 Completed [facility] Influenza Virus Vaccine Quad .5 mL IM 6+ MO 2020-05-13 00:00:00 Completed [facility] Influenza Virus Vaccine Quad .5 mL IM 6+ MO 2020-05-13 00:00:00 Completed [facility] Influenza Virus Vaccine Quad .5 mL IM 6+ MO 2020-05-13 00:00:00 Completed [facility] Influenza Virus Vaccine Quad .5 mL IM 6+ MO 2020-05-13 00:00:00 Completed [facility] Influenza Virus Vaccine Quad .5 mL IM 6+ MO 2020-05-13 00:00:00 Completed [facility] Influenza Virus Vaccine Quad .5 mL IM 6+ MO 2020-05-13 00:00:00 Completed [facility] Influenza Virus Vaccine Quad .5 mL IM 6+ MO (FLUZONE/FLULAVAL/F LUARIX) 2020-05-13 00:00:00 Completed [facility] Influenza Virus Vaccine Quad .5 mL IM 6+ MO (FLUZONE/FLULAVAL/F LUARIX) 2020-05-13 00:00:00 Completed [facility] Influenza Virus Vaccine Quad .5 mL IM 6+ MO (FLUZONE/FLULAVAL/F LUARIX) 2020-05-13 00:00:00 Completed [facility] Influenza Virus Vaccine Quad .5 mL IM 6+ MO (FLUZONE/FLULAVAL/F LUARIX) 2020-05-13 00:00:00 Completed [facility] Influenza Virus Vaccine Quad .5 mL IM 6+ MO (FLUZONE/FLULAVAL/F LUARIX) 2020-05-13 00:00:00 Completed [facility] Influenza Virus Vaccine Quad .5 mL IM 6+ MO 2020-05-13 00:00:00 Completed [facility] Influenza Virus Vaccine Quad .5 mL IM 6+ MO 2020-05-13 00:00:00 Completed [facility] Influenza Virus Vaccine Quad .5 mL IM 6+ MO 2020-05-13 00:00:00 Completed [facility] Influenza Virus Vaccine Quad .5 mL IM 6+ MO 2020-05-13 00:00:00 Completed [facility] Influenza Virus Vaccine Quad .5 mL IM 6+ MO 2020-05-13 00:00:00 Completed [facility] Influenza Virus Vaccine Quad .5 mL IM 6+ MO 2020-05-13 00:00:00 Completed [facility] Influenza Virus Vaccine Quad .5 mL IM 6+ MO 2020-05-13 00:00:00 Completed [facility] Influenza Virus Vaccine Quad .5 mL IM 6+ MO 2020-05-13 00:00:00 Completed [facility] Influenza Virus Vaccine Quad .5 mL IM 6+ MO 2020-05-13 00:00:00 Completed [facility] Influenza Virus Vaccine Quad .5 mL IM 6+ MO 2020-05-13 00:00:00 Completed [facility] Influenza Virus Vaccine Quad .5 mL IM 6+ MO 2020-05-13 00:00:00 Completed [facility] Influenza Virus Vaccine Quad .5 mL IM 6+ MO 2020-05-13 00:00:00 Completed [facility] Influenza Virus Vaccine Quad .5 mL IM 6+ MO 2020-05-13 00:00:00 Completed [facility] Influenza Virus Vaccine Quad .5 mL IM 6+ MO 2020-05-13 00:00:00 Completed [facility] Influenza Virus Vaccine Quad .5 mL IM 6+ MO 2020-05-13 00:00:00 Completed [facility] Influenza Virus Vaccine Quad .5 mL IM 6+ MO 2020-05-13 00:00:00 Completed [facility] Influenza Virus Vaccine Quad .5 mL IM 6+ MO 2020-05-13 00:00:00 Completed [facility] Influenza Virus Vaccine Quad .5 mL IM 6+ MO 2020-05-13 00:00:00 Completed [facility] Influenza Virus Vaccine Quad .5 mL IM 6+ MO 2020-05-13 00:00:00 Completed [facility] Influenza Virus Vaccine Quad .5 mL IM 6+ MO 2020-05-13 00:00:00 Completed [facility] Influenza Virus Vaccine Quad .5 mL IM 6+ MO 2020-05-13 00:00:00 Completed [facility] Influenza Virus Vaccine Quad .5 mL IM 6+ MO 2020-05-13 00:00:00 Completed [facility] Influenza Virus Vaccine Quad .5 mL IM 6+ MO 2020-05-13 00:00:00 Completed [facility] Influenza Virus Vaccine Quad .5 mL IM 6+ MO 2020-05-13 00:00:00 Completed [facility] Influenza Virus Vaccine Quad .5 mL IM 6+ MO 2020-05-13 00:00:00 Completed [facility] Influenza Virus Vaccine Quad .5 mL IM 6+ MO 2020-05-13 00:00:00 Completed [facility] Influenza Virus Vaccine Quad .5 mL IM 6+ MO 2020-05-13 00:00:00 Completed [facility] Influenza Virus Vaccine Quad .5 mL IM 6+ MO 2020-05-13 00:00:00 Completed [facility] Influenza Virus Vaccine Quad .5 mL IM 6+ MO 2020-05-13 00:00:00 Completed [facility] Influenza Virus Vaccine Quad .5 mL IM 6+ MO 2020-05-13 00:00:00 Completed [facility] Influenza Virus Vaccine Quad .5 mL IM 6+ MO 2020-05-13 00:00:00 Completed [facility] Influenza Virus Vaccine Quad .5 mL IM 6+ MO 2020-05-13 00:00:00 Completed [facility] Influenza Virus Vaccine Quad .5 mL IM 6+ [place] 2020-05-13 00:00:00 Completed [facility] Influenza Virus Vaccine Quad .5 mL IM 6+ MO 2020-05-13 00:00:00 Completed [facility] Influenza Virus Vaccine Quad .5 mL IM 6+ MO 2020-05-13 00:00:00 Completed [facility] Influenza Virus Vaccine Quad .5 mL IM 6+ MO 2020-05-13 00:00:00 Completed [facility] Influenza Virus Vaccine Quad .5 mL IM 6+ MO 2020-05-13 00:00:00 Completed [facility] Influenza Virus Vaccine Quad IM 3+ YRS 2017-05-29 00:00:00 Completed [facility] Influenza Virus Vaccine Quad IM 3+ YRS 2017-05-29 00:00:00 Completed [facility] Influenza Virus Vaccine Quad IM 3+ YRS 2017-05-29 00:00:00 Completed [facility] Influenza Virus Vaccine Quad IM 3+ YRS 2017-05-29 00:00:00 Completed [facility] Influenza Virus Vaccine Quad IM 3+ YRS 2017-05-29 00:00:00 Completed [facility] Influenza Virus Vaccine Quad IM 3+ YRS [...] Quad IM 3+ YRS 2017-05-29 00:00:00 Completed [facility] Influenza Virus Vaccine Quad IM 3+ YRS 2017-05-29 00:00:00 Completed [facility] Influenza Virus Vaccine Quad IM 3+ YRS 2017-05-29 00:00:00 Completed [facility] Influenza Virus Vaccine Quad IM 3+ YRS 2017-05-29 00:00:00 Completed [facility] Influenza Virus Vaccine Quad IM 3+ YRS 2017-05-29 00:00:00 Completed [facility] Influenza Virus Vaccine Quad IM 3+ YRS 2017-05-29 00:00:00 Completed [facility] Influenza Virus Vaccine Quad IM 3+ YRS 2017-05-29 00:00:00 Completed [facility] Influenza Virus Vaccine Quad IM 3+ YRS 2017-05-29 00:00:00 Completed [facility] Influenza Virus Vaccine Quad IM 3+ YRS 2017-05-29 00:00:00 Completed [facility] Influenza Virus Vaccine Quad IM 3+ YRS 2017-05-29 00:00:00 Completed [facility] Influenza Virus Vaccine Quad IM 3+ YRS 2017-05-29 00:00:00 Completed [facility] Influenza Virus Vaccine Quad IM 3+ YRS 2017-05-29 00:00:00 Completed [facility] Influenza Virus Vaccine Quad IM 3+ YRS 2017-05-29 00:00:00 Completed [facility] Influenza Virus Vaccine Quad IM 3+ YRS 2017-05-29 00:00:00 Completed [facility] Influenza Virus Vaccine Quad IM 3+ YRS 2017-05-29 00:00:00 Completed [facility] Influenza Virus Vaccine Quad IM 3+ YRS 2017-05-29 00:00:00 Completed [facility] Influenza Virus Vaccine Quad IM 3+ YRS 2017-05-29 00:00:00 Completed [facility] Influenza Virus Vaccine Quad IM 3+ YRS 2017-05-29 00:00:00 Completed [facility] Influenza Virus Vaccine Quad IM 3+ YRS 2017-05-29 00:00:00 Completed [facility] Influenza Virus Vaccine Quad IM 3+ YRS 2017-05-29 00:00:00 Completed [facility] Influenza Virus Vaccine Quad IM 3+ YRS 2017-05-29 00:00:00 Completed [facility] Influenza Virus Vaccine Quad IM 3+ YRS 2017-05-29 00:00:00 Completed [facility] Influenza Virus Vaccine Quad IM 3+ YRS 2017-05-29 00:00:00 Completed [facility] Influenza Virus Vaccine Quad IM 3+ YRS 2017-05-29 00:00:00 Completed [facility] Influenza Virus Vaccine Quad IM 3+ YRS 2017-05-29 00:00:00 Completed [facility] Influenza Virus Vaccine Quad IM 3+ YRS 2017-05-29 00:00:00 Completed [facility] Influenza Virus Vaccine Quad IM 3+ YRS 2017-05-29 00:00:00 Completed [facility] Influenza Virus Vaccine Quad IM 3+ YRS 2017-05-29 00:00:00 Completed [facility] Influenza Virus Vaccine Quad IM 3+ YRS 2017-05-29 00:00:00 Completed [facility] Influenza Virus Vaccine Quad IM 3+ YRS 2017-05-29 00:00:00 Completed [facility] Influenza Virus Vaccine Quad IM 3+ YRS 2017-05-29 00:00:00 Completed [facility] Influenza Virus Vaccine Quad IM 3+ YRS 2017-05-29 00:00:00 Completed [facility] Influenza Virus Vaccine Quad IM 3+ YRS 2017-05-29 00:00:00 Completed [facility] Influenza Virus Vaccine Quad IM 3+ YRS 2017-05-29 00:00:00 Completed [facility] Influenza Virus Vaccine Quad IM 3+ YRS 2017-05-29 00:00:00 Completed [facility] Influenza Virus Vaccine Quad IM 3+ YRS 2017-05-29 00:00:00 Completed [facility] Influenza Virus Vaccine Quad IM 3+ YRS 2017-05-29 00:00:00 Completed [facility] Influenza Virus Vaccine Quad IM 3+ YRS 2017-05-29 00:00:00 Completed [facility] Influenza Virus Vaccine Quad IM 3+ YRS 2017-05-29 00:00:00 Completed [facility] Influenza Virus Vaccine Quad IM 3+ YRS 2017-05-29 00:00:00 Completed [facility] Influenza Virus Vaccine Quad IM 3+ YRS 2017-05-29 00:00:00 Completed [facility] Influenza Virus Vaccine Quad IM 3+ YRS 2017-05-29 00:00:00 Completed [facility] Influenza Virus Vaccine Quad IM 3+ YRS 2017-05-29 00:00:00 Completed [facility] Influenza Virus Vaccine Quad IM 3+ YRS 2017-05-29 00:00:00 Completed [facility] Influenza Virus Vaccine Quad IM 3+ YRS 2017-05-29 00:00:00 Completed [facility] Influenza Virus Vaccine Quad IM 3+ YRS 2017-05-29 00:00:00 Completed [facility] Influenza Virus Vaccine Quad IM 3+ YRS 2017-05-29 00:00:00 Completed [facility] Influenza Virus Vaccine Quad IM 3+ YRS 2017-05-29 00:00:00 Completed [facility] Influenza Virus Vaccine Quad IM 3+ YRS 2017-05-29 00:00:00 Completed [facility] Influenza Virus Vaccine Quad IM 3+ YRS 2017-05-29 00:00:00 Completed [facility] Influenza Virus Vaccine Quad IM 3+ YRS 2017-05-29 00:00:00 Completed [facility] Influenza Virus Vaccine Quad IM 3+ YRS 2017-05-29 00:00:00 Completed [facility] Influenza Virus Vaccine Quad IM 3+ YRS 2017-05-29 00:00:00 Completed [facility] Influenza Virus Vaccine Quad IM 3+ YRS 2017-05-29 00:00:00 Completed [facility] Influenza Virus Vaccine Quad IM 3+ YRS 2017-05-29 00:00:00 Completed [facility] Influenza Virus Vaccine Quad IM 3+ YRS 2017-05-29 00:00:00 Completed [facility] Influenza Virus Vaccine Quad IM 3+ YRS 2017-05-29 00:00:00 Completed [facility] Influenza Virus Vaccine Quad IM 3+ YRS 2017-05-29 00:00:00 Completed [facility] Influenza Virus Vaccine Quad IM 3+ YRS 2017-05-29 00:00:00 Completed [facility] Influenza Virus Vaccine Quad IM 3+ YRS 2017-05-29 00:00:00 Completed [facility] Influenza Virus Vaccine Quad IM 3+ YRS 2017-05-29 00:00:00 Completed [facility] Influenza Virus Vaccine Quad IM 3+ YRS 2017-05-29 00:00:00 Completed [facility] Influenza Virus Vaccine Quad IM 3+ YRS 2017-05-29 00:00:00 Completed [facility] Influenza Virus Vaccine Quad IM 3+ YRS 2017-05-29 00:00:00 Completed [facility] Influenza Virus Vaccine Quad IM 3+ YRS 2017-05-29 00:00:00 Completed [facility] Influenza Virus Vaccine Quad IM 3+ YRS 2017-05-29 00:00:00 Completed [facility] Influenza Virus Vaccine Quad IM 3+ YRS 2017-05-29 00:00:00 Completed [facility] Influenza Virus Vaccine Quad IM 3+ YRS 2017-05-29 00:00:00 Completed [facility] Influenza Virus Vaccine Quad IM 3+ YRS 2017-05-29 00:00:00 Completed [facility] Influenza Virus Vaccine Quad IM 3+ YRS 2017-05-29 00:00:00 Completed [facility] Influenza Virus Vaccine Quad IM 3+ YRS 2017-05-29 00:00:00 Completed [facility] Influenza Virus Vaccine Quad IM 3+ YRS 2017-05-29 00:00:00 Completed [facility] Influenza Virus Vaccine Quad IM 3+ YRS 2017-05-29 00:00:00 Completed [facility] Influenza Virus Vaccine Quad IM 3+ YRS 2017-05-29 00:00:00 Completed [facility] Influenza Virus Vaccine Quad IM 3+ YRS [...] Quad IM 3+ YRS 2017-05-29 00:00:00 Completed [facility] Influenza Virus Vaccine Quad IM 3+ YRS 2017-05-29 00:00:00 Completed [facility] Influenza Virus Vaccine Quad IM 3+ YRS 2017-05-29 00:00:00 Completed [facility] Influenza Virus Vaccine Quad IM 3+ YRS 2017-05-29 00:00:00 Completed [facility] Influenza Virus Vaccine Quad IM 3+ YRS 2017-05-29 00:00:00 Completed [facility] Influenza Virus Vaccine Quad IM 3+ YRS 2017-05-29 00:00:00 Completed [facility] Influenza Virus Vaccine Quad IM 3+ YRS 2017-05-29 00:00:00 Completed [facility] Influenza Virus Vaccine Quad IM 3+ YRS 2017-05-29 00:00:00 Completed [facility] Influenza Virus Vaccine Quad IM 3+ YRS 2017-05-29 00:00:00 Completed [facility] Influenza Virus Vaccine Quad IM 3+ YRS 2017-05-29 00:00:00 Completed [facility] Influenza Virus Vaccine Quad IM 3+ YRS 2017-05-29 00:00:00 Completed [facility] Influenza Virus Vaccine Quad IM 3+ YRS 2017-05-29 00:00:00 Completed [facility] Influenza Virus Vaccine Quad IM 3+ YRS 2017-05-29 00:00:00 Completed [facility] Influenza Virus Vaccine Quad IM 3+ YRS 2017-05-29 00:00:00 Completed [facility] Influenza Virus Vaccine Quad IM 3+ YRS 2017-05-29 00:00:00 Completed [facility] Influenza Virus Vaccine Quad IM 3+ YRS 2017-05-29 00:00:00 Completed [facility] Influenza Virus Vaccine Quad IM 3+ YRS 2017-05-29 00:00:00 Completed [facility] Influenza Virus Vaccine Quad IM 3+ YRS 2017-05-29 00:00:00 Completed [facility] Influenza Virus Vaccine Quad IM 3+ YRS 2017-05-29 00:00:00 Completed [facility] Influenza Virus Vaccine Quad IM 3+ YRS 2017-05-29 00:00:00 Completed [facility] Influenza Virus Vaccine Quad IM 3+ YRS 2017-05-29 00:00:00 Completed [facility] Influenza Virus Vaccine Quad IM 3+ YRS 2017-05-29 00:00:00 Completed [facility] Influenza Virus Vaccine Quad IM 3+ YRS 2017-05-29 00:00:00 Completed [facility] Influenza Virus Vaccine Quad IM 3+ YRS 2017-05-29 00:00:00 Completed [facility] Influenza Virus Vaccine Quad IM 3+ YRS 2017-05-29 00:00:00 Completed [facility] Influenza Virus Vaccine Quad IM 3+ YRS 2017-05-29 00:00:00 Completed [facility] Influenza Virus Vaccine Quad IM 3+ YRS 2017-05-29 00:00:00 Completed [facility] Influenza Virus Vaccine Quad IM 3+ YRS 2017-05-29 00:00:00 Completed [facility] Influenza Virus Vaccine Quad IM 3+ YRS 2017-05-29 00:00:00 Completed [facility] Influenza Virus Vaccine Quad IM 3+ YRS 2017-05-29 00:00:00 Completed [facility] Influenza Virus Vaccine Quad IM 3+ YRS 2017-05-29 00:00:00 Completed [facility] Influenza Virus Vaccine Quad IM 3+ YRS 2017-05-29 00:00:00 Completed [facility] Influenza Virus Vaccine Quad IM 3+ YRS 2017-05-29 00:00:00 Completed [facility] Influenza Virus Vaccine Quad IM 3+ YRS 2017-05-29 00:00:00 Completed [facility] Influenza Virus Vaccine Quad IM 3+ YRS 2017-05-29 00:00:00 Completed [facility] Influenza Virus Vaccine Quad IM 3+ YRS 2017-05-29 00:00:00 Completed [facility] Influenza Virus Vaccine Quad IM 3+ YRS 2017-05-29 00:00:00 Completed [facility] Influenza Virus Vaccine Quad IM 3+ YRS 2017-05-29 00:00:00 Completed [facility] Influenza Virus Vaccine Quad IM 3+ YRS 2017-05-29 00:00:00 Completed [facility] Influenza Virus Vaccine Quad IM 3+ YRS 2017-05-29 00:00:00 Completed [facility] Influenza Virus Vaccine Quad IM 3+ YRS 2017-05-29 00:00:00 Completed [facility] Influenza Virus Vaccine Quad IM 3+ YRS 2017-05-29 00:00:00 Completed [facility] Influenza Virus Vaccine Quad IM 3+ YRS 2017-05-29 00:00:00 Completed [facility] Influenza Virus Vaccine Quad IM 3+ YRS 2017-05-29 00:00:00 Completed [facility] Influenza Virus Vaccine Quad IM 3+ YRS 2017-05-29 00:00:00 Completed [facility] Influenza Virus Vaccine Quad IM 3+ YRS 2017-05-29 00:00:00 Completed [facility] Influenza Virus Vaccine Quad IM 3+ YRS 2017-05-29 00:00:00 Completed [facility] Influenza Virus Vaccine Quad IM 3+ YRS 2017-05-29 00:00:00 Completed [facility] Influenza Virus Vaccine Quad IM 3+ YRS 2017-05-29 00:00:00 Completed [facility] Influenza Virus Vaccine Quad IM 3+ YRS 2017-05-29 00:00:00 Completed [facility] MMR 2017-04-29 00:00:00 Completed [facility] MMR 2017-04-29 00:00:00 Completed [facility] MMR 2017-04-29 00:00:00 Completed [facility] MMR 2017-04-29 00:00:00 Completed [facility] MMR 2017-04-29 00:00:00 Completed [facility] MMR 2017-04-29 00:00:00 Completed [facility] MMR 2017-04-29 00:00:00 Completed [facility] MMR 2017-04-29 00:00:00 Completed [facility] MMR 2017-04-29 00:00:00 Completed [facility] MMR 2017-04-29 00:00:00 Completed [facility] MMR 2017-04-29 00:00:00 Completed [facility] MMR 2017-04-29 00:00:00 Completed [facility] MMR 2017-04-29 00:00:00 Completed [facility] MMR 2017-04-29 00:00:00 Completed [facility] MMR 2017-04-29 00:00:00 Completed [facility] MMR 2017-04-29 00:00:00 Completed [facility] MMR 2017-04-29 00:00:00 Completed [facility] MMR 2017-04-29 00:00:00 Completed [facility] MMR 2017-04-29 00:00:00 Completed [facility] MMR 2017-04-29 00:00:00 Completed [facility] MMR 2017-04-29 00:00:00 Completed [facility] MMR 2017-04-29 00:00:00 Completed [facility] MMR 2017-04-29 00:00:00 Completed [facility] MMR 2017-04-29 00:00:00 Completed [facility] MMR 2017-04-29 00:00:00 Completed [facility] MMR 2017-04-29 00:00:00 Completed [facility] MMR 2017-04-29 00:00:00 Completed [facility] MMR 2017-04-29 00:00:00 Completed [facility] MMR 2017-04-29 00:00:00 Completed [facility] MMR 2017-04-29 00:00:00 Completed [facility] MMR 2017-04-29 00:00:00 Completed [facility] MMR 2017-04-29 00:00:00 Completed [facility] MMR 2017-04-29 00:00:00 Completed [facility] MMR 2017-04-29 00:00:00 Completed [facility] MMR 2017-04-29 00:00:00 Completed [facility] MMR 2017-04-29 00:00:00 Completed [facility] MMR 2017-04-29 00:00:00 Completed [facility] MMR 2017-04-29 00:00:00 Completed [facility] MMR 2017-04-29 00:00:00 Completed [facility] MMR 2017-04-29 00:00:00 Completed [facility] MMR 2017-04-29 00:00:00 Completed [facility] MMR 2017-04-29 00:00:00 Completed [facility] MMR 2017-04-29 00:00:00 Completed [facility] MMR 2017-04-29 00:00:00 Completed [facility] MMR 2017-04-29 00:00:00 Completed [facility] MMR 2017-04-29 00:00:00 Completed [facility] MMR 2017-04-29 00:00:00 Completed [facility] MMR 2017-04-29 00:00:00 Completed [facility] MMR 2017-04-29 00:00:00 Completed [facility] MMR 2017-04-29 00:00:00 Completed [facility] MMR 2017-04-29 00:00:00 Completed [facility] MMR 2017-04-29 00:00:00 Completed [facility] MMR 2017-04-29 00:00:00 Completed [facility] MMR 2017-04-29 00:00:00 Completed [facility] MMR 2017-04-29 00:00:00 Completed [facility] MMR 2017-04-29 00:00:00 Completed [facility] MMR 2017-04-29 00:00:00 Completed [facility] MMR 2017-04-29 00:00:00 Completed [facility] MMR 2017-04-29 00:00:00 Completed [facility] MMR 2017-04-29 00:00:00 Completed [facility] MMR 2017-04-29 00:00:00 Completed [facility] MMR 2017-04-29 00:00:00 Completed [facility] MMR 2017-04-29 00:00:00 Completed [facility] MMR 2017-04-29 00:00:00 Completed [facility] MMR 2017-04-29 00:00:00 Completed [facility] MMR 2017-04-29 00:00:00 Completed [facility] MMR 2017-04-29 00:00:00 Completed [facility] MMR 2017-04-29 00:00:00 Completed [facility] MMR 2017-04-29 00:00:00 Completed [facility] MMR 2017-04-29 00:00:00 Completed [facility] MMR 2017-04-29 00:00:00 Completed [facility] MMR 2017-04-29 00:00:00 Completed [facility] MMR 2017-04-29 00:00:00 Completed [facility] MMR 2017-04-29 00:00:00 Completed [facility] MMR 2017-04-29 00:00:00 Completed [facility] MMR 2017-04-29 00:00:00 Completed [facility] MMR 2017-04-29 00:00:00 Completed [facility] MMR 2017-04-29 00:00:00 Completed [facility] MMR 2017-04-29 00:00:00 Completed [facility] MMR 2017-04-29 00:00:00 Completed [facility] MMR 2017-04-29 00:00:00 Completed [facility] MMR 2017-04-29 00:00:00 Completed [facility] MMR 2017-04-29 00:00:00 Completed [facility] MMR 2017-04-29 00:00:00 Completed [facility] MMR 2017-04-29 00:00:00 Completed [facility] MMR 2017-04-29 00:00:00 Completed [facility] MMR 2017-04-29 00:00:00 Completed [facility] MMR 2017-04-29 00:00:00 Completed [facility] MMR 2017-04-29 00:00:00 Completed [facility] MMR 2017-04-29 00:00:00 Completed [facility] MMR 2017-04-29 00:00:00 Completed [facility] MMR 2017-04-29 00:00:00 Completed [facility] MMR 2017-04-29 00:00:00 Completed [facility] MMR 2017-04-29 00:00:00 Completed [facility] MMR 2017-04-29 00:00:00 Completed [facility] MMR 2017-04-29 00:00:00 Completed [facility] MMR 2017-04-29 00:00:00 Completed [facility] MMR 2017-04-29 00:00:00 Completed [facility] MMR 2017-04-29 00:00:00 Completed [facility] MMR 2017-04-29 00:00:00 Completed [facility] MMR 2017-04-29 00:00:00 Completed [facility] MMR 2017-04-29 00:00:00 Completed [facility] MMR 2017-04-29 00:00:00 Completed [facility] MMR 2017-04-29 00:00:00 Completed [facility] MMR 2017-04-29 00:00:00 Completed [facility] MMR 2017-04-29 00:00:00 Completed [facility] MMR 2017-04-29 00:00:00 Completed [facility] MMR 2017-04-29 00:00:00 Completed [facility] MMR 2017-04-29 00:00:00 Completed [facility] MMR 2017-04-29 00:00:00 Completed [facility] MMR 2017-04-29 00:00:00 Completed [facility] MMR 2017-04-29 00:00:00 Completed [facility] MMR 2017-04-29 00:00:00 Completed [facility] MMR 2017-04-29 00:00:00 Completed [facility] MMR 2017-04-29 00:00:00 Completed [facility] MMR 2017-04-29 00:00:00 Completed [facility] MMR 2017-04-29 00:00:00 Completed [facility] MMR 2017-04-29 00:00:00 Completed [facility] MMR 2017-04-29 00:00:00 Completed [facility] MMR 2017-04-29 00:00:00 Completed [facility] MMR 2017-04-29 00:00:00 Completed [facility] MMR 2017-04-29 00:00:00 Completed [facility] MMR 2017-04-29 00:00:00 Completed [facility] MMR 2017-04-29 00:00:00 Completed [facility] MMR 2017-04-29 00:00:00 Completed [facility] MMR 2017-04-29 00:00:00 Completed [facility] MMR 2017-04-29 00:00:00 Completed [facility] MMR 2017-04-29 00:00:00 Completed [facility] MMR 2017-04-29 00:00:00 Completed [facility] MMR 2017-04-29 00:00:00 Completed [facility] MMR 2017-04-29 00:00:00 Completed [facility] MMR 2017-04-29 00:00:00 Completed [facility] MMR 2017-04-29 00:00:00 Completed [facility] MMR 2017-04-29 00:00:00 Completed [facility] MMR 2017-04-29 00:00:00 Completed [facility] MMR 2017-04-29 00:00:00 Completed [facility] MMR 2017-04-29 00:00:00 Completed [facility] MMR 2017-04-29 00:00:00 Completed [facility] MMR 2017-04-29 00:00:00 Completed [facility] TDAP 2017-02-28 00:00:00 Completed [facility] TDAP 2017-02-28 00:00:00 Completed [facility] TDAP 2017-02-28 00:00:00 Completed [facility] TDAP 2017-02-28 00:00:00 Completed [facility] TDAP 2017-02-28 00:00:00 Completed [facility] TDAP 2017-02-28 00:00:00 Completed [facility] TDAP 2017-02-28 00:00:00 Completed [facility] TDAP 2017-02-28 00:00:00 Completed [facility] TDAP 2017-02-28 00:00:00 Completed [facility] TDAP 2017-02-28 00:00:00 Completed [facility] TDAP 2017-02-28 00:00:00 Completed [facility] TDAP 2017-02-28 00:00:00 Completed [facility] TDAP 2017-02-28 00:00:00 Completed [facility] TDAP 2017-02-28 00:00:00 Completed [facility] TDAP 2017-02-28 00:00:00 Completed [facility] TDAP 2017-02-28 00:00:00 Completed [facility] TDAP 2017-02-28 00:00:00 Completed [facility] TDAP 2017-02-28 00:00:00 Completed [facility] TDAP 2017-02-28 00:00:00 Completed [facility] TDAP 2017-02-28 00:00:00 Completed [facility] TDAP 2017-02-28 00:00:00 Completed [facility] TDAP 2017-02-28 00:00:00 Completed [facility] TDAP 2017-02-28 00:00:00 Completed [facility] TDAP 2017-02-28 00:00:00 Completed [facility] TDAP 2017-02-28 00:00:00 Completed [facility] TDAP 2017-02-28 00:00:00 Completed [facility] TDAP 2017-02-28 00:00:00 Completed [facility] TDAP 2017-02-28 00:00:00 Completed [facility] TDAP 2017-02-28 00:00:00 Completed [facility] TDAP 2017-02-28 00:00:00 Completed [facility] TDAP 2017-02-28 00:00:00 Completed [facility] TDAP 2017-02-28 00:00:00 Completed [facility] TDAP 2017-02-28 00:00:00 Completed [facility] TDAP 2017-02-28 00:00:00 Completed [facility] TDAP 2017-02-28 00:00:00 Completed [facility] TDAP 2017-02-28 00:00:00 Completed [facility] TDAP 2017-02-28 00:00:00 Completed [facility] TDAP 2017-02-28 00:00:00 Completed [facility] TDAP 2017-02-28 00:00:00 Completed [facility] TDAP 2017-02-28 00:00:00 Completed [facility] TDAP 2017-02-28 00:00:00 Completed [facility] TDAP 2017-02-28 00:00:00 Completed [facility] TDAP 2017-02-28 00:00:00 Completed [facility] TDAP 2017-02-28 00:00:00 Completed [facility] TDAP 2017-02-28 00:00:00 Completed [facility] TDAP 2017-02-28 00:00:00 Completed [facility] TDAP 2017-02-28 00:00:00 Completed [facility] TDAP 2017-02-28 00:00:00 Completed [facility] TDAP 2017-02-28 00:00:00 Completed [facility] TDAP 2017-02-28 00:00:00 Completed [facility] TDAP 2017-02-28 00:00:00 Completed [facility] TDAP 2017-02-28 00:00:00 Completed [facility] TDAP 2017-02-28 00:00:00 Completed [facility] TDAP 2017-02-28 00:00:00 Completed [facility] TDAP 2017-02-28 00:00:00 Completed [facility] TDAP 2017-02-28 00:00:00 Completed [facility] TDAP 2017-02-28 00:00:00 Completed [facility] TDAP 2017-02-28 00:00:00 Completed [facility] TDAP 2017-02-28 00:00:00 Completed [facility] TDAP 2017-02-28 00:00:00 Completed [facility] TDAP 2017-02-28 00:00:00 Completed [facility] TDAP 2017-02-28 00:00:00 Completed [facility] TDAP 2017-02-28 00:00:00 Completed [facility] TDAP 2017-02-28 00:00:00 Completed [facility] TDAP 2017-02-28 00:00:00 Completed [facility] TDAP 2017-02-28 00:00:00 Completed [facility] TDAP 2017-02-28 00:00:00 Completed [facility] TDAP 2017-02-28 00:00:00 Completed [facility] TDAP 2017-02-28 00:00:00 Completed [facility] TDAP 2017-02-28 00:00:00 Completed [facility] TDAP 2017-02-28 00:00:00 Completed [facility] TDAP 2017-02-28 00:00:00 Completed [facility] TDAP 2017-02-28 00:00:00 Completed [facility] TDAP 2017-02-28 00:00:00 Completed [facility] TDAP 2017-02-28 00:00:00 Completed [facility] TDAP 2017-02-28 00:00:00 Completed [facility] TDAP 2017-02-28 00:00:00 Completed [facility] TDAP 2017-02-28 00:00:00 Completed [facility] TDAP 2017-02-28 00:00:00 Completed [facility] TDAP 2017-02-28 00:00:00 Completed [facility] TDAP 2017-02-28 00:00:00 Completed [facility] TDAP 2017-02-28 00:00:00 Completed [facility] TDAP 2017-02-28 00:00:00 Completed [facility] TDAP 2017-02-28 00:00:00 Completed [facility] TDAP 2017-02-28 00:00:00 Completed [facility] TDAP 2017-02-28 00:00:00 Completed [facility] TDAP 2017-02-28 00:00:00 Completed [facility] TDAP 2017-02-28 00:00:00 Completed [facility] TDAP 2017-02-28 00:00:00 Completed [facility] TDAP 2017-02-28 00:00:00 Completed [facility] TDAP 2017-02-28 00:00:00 Completed [facility] TDAP 2017-02-28 00:00:00 Completed [facility] TDAP 2017-02-28 00:00:00 Completed [facility] TDAP 2017-02-28 00:00:00 Completed [facility] TDAP 2017-02-28 00:00:00 Completed [facility] TDAP 2017-02-28 00:00:00 Completed [facility] TDAP 2017-02-28 00:00:00 Completed [facility] TDAP 2017-02-28 00:00:00 Completed [facility] TDAP 2017-02-28 00:00:00 Completed [facility] TDAP 2017-02-28 00:00:00 Completed [facility] TDAP 2017-02-28 00:00:00 Completed [facility] TDAP 2017-02-28 00:00:00 Completed [facility] TDAP 2017-02-28 00:00:00 Completed [facility] TDAP 2017-02-28 00:00:00 Completed [facility] TDAP 2017-02-28 00:00:00 Completed [facility] TDAP 2017-02-28 00:00:00 Completed [facility] TDAP 2017-02-28 00:00:00 Completed [facility] TDAP 2017-02-28 00:00:00 Completed [facility] TDAP 2017-02-28 00:00:00 Completed [facility] TDAP 2017-02-28 00:00:00 Completed [facility] TDAP 2017-02-28 00:00:00 Completed [facility] TDAP 2017-02-28 00:00:00 Completed [facility] TDAP 2017-02-28 00:00:00 Completed [facility] TDAP 2017-02-28 00:00:00 Completed [facility] TDAP 2017-02-28 00:00:00 Completed [facility] TDAP 2017-02-28 00:00:00 Completed [facility] TDAP 2017-02-28 00:00:00 Completed [facility] TDAP 2017-02-28 00:00:00 Completed [facility] TDAP 2017-02-28 00:00:00 Completed [facility] TDAP 2017-02-28 00:00:00 Completed [facility] TDAP 2017-02-28 00:00:00 Completed [facility] TDAP 2017-02-28 00:00:00 Completed [facility] TDAP 2017-02-28 00:00:00 Completed [facility] TDAP 2017-02-28 00:00:00 Completed [facility] TDAP 2017-02-28 00:00:00 Completed [facility] TDAP 2017-02-28 00:00:00 Completed [facility] TDAP 2017-02-28 00:00:00 Completed [facility] TDAP 2017-02-28 00:00:00 Completed [facility] TDAP 2017-02-28 00:00:00 Completed [facility] TDAP 2017-02-28 00:00:00 Completed [facility] TDAP 2017-02-28 00:00:00 Completed [facility] TDAP 2017-02-28 00:00:00 Completed [facility] TDAP 2017-02-28 00:00:00 Completed [facility] TDAP 2017-02-28 00:00:00 Completed [facility] TDAP 2017-02-28 00:00:00 Completed [facility] TDAP 2017-02-28 00:00:00 Completed [facility] TDAP 2017-02-28 00:00:00 Completed [facility] TDAP 2017-02-28 00:00:00 Completed [facility] TDAP 2017-02-28 00:00:00 Completed [facility] TDAP 2012-08-26 00:00:00 Completed [facility] TDAP 2012-08-26 00:00:00 Completed [facility] TDAP 2012-08-26 00:00:00 Completed [facility] TDAP 2012-08-26 00:00:00 Completed [facility] TDAP 2012-08-26 00:00:00 Completed [facility] TDAP 2012-08-26 00:00:00 Completed [facility] TDAP 2012-08-26 00:00:00 Completed [facility] TDAP 2012-08-26 00:00:00 Completed [facility] TDAP 2012-08-26 00:00:00 Completed [facility] TDAP 2012-08-26 00:00:00 Completed [facility] TDAP 2012-08-26 00:00:00 Completed [facility] TDAP 2012-08-26 00:00:00 Completed [facility] TDAP 2012-08-26 00:00:00 Completed [facility] TDAP 2012-08-26 00:00:00 Completed [facility] TDAP 2012-08-26 00:00:00 Completed [facility] TDAP 2012-08-26 00:00:00 Completed [facility] TDAP 2012-08-26 00:00:00 Completed [facility] TDAP 2012-08-26 00:00:00 Completed [facility] TDAP 2012-08-26 00:00:00 Completed [facility] TDAP 2012-08-26 00:00:00 Completed [facility] TDAP 2012-08-26 00:00:00 Completed [facility] TDAP 2012-08-26 00:00:00 Completed [facility] TDAP 2012-08-26 00:00:00 Completed [facility] TDAP 2012-08-26 00:00:00 Completed [facility] TDAP 2012-08-26 00:00:00 Completed [facility] TDAP 2012-08-26 00:00:00 Completed [facility] TDAP 2012-08-26 00:00:00 Completed [facility] TDAP 2012-08-26 00:00:00 Completed [facility] TDAP 2012-08-26 00:00:00 Completed [facility] TDAP 2012-08-26 00:00:00 Completed [facility] TDAP 2012-08-26 00:00:00 Completed [facility] TDAP 2012-08-26 00:00:00 Completed [facility] TDAP 2012-08-26 00:00:00 Completed [facility] TDAP 2012-08-26 00:00:00 Completed [facility] TDAP 2012-08-26 00:00:00 Completed [facility] TDAP 2012-08-26 00:00:00 Completed [facility] TDAP 2012-08-26 00:00:00 Completed [facility] TDAP 2012-08-26 00:00:00 Completed [facility] TDAP 2012-08-26 00:00:00 Completed [facility] TDAP 2012-08-26 00:00:00 Completed [facility] TDAP 2012-08-26 00:00:00 Completed [facility] TDAP 2012-08-26 00:00:00 Completed [facility] TDAP 2012-08-26 00:00:00 Completed [facility] TDAP 2012-08-26 00:00:00 Completed [facility] TDAP 2012-08-26 00:00:00 Completed [facility] TDAP 2012-08-26 00:00:00 Completed [facility] TDAP 2012-08-26 00:00:00 Completed [facility] TDAP 2012-08-26 00:00:00 Completed [facility] TDAP 2012-08-26 00:00:00 Completed [facility] TDAP 2012-08-26 00:00:00 Completed [facility] TDAP 2012-08-26 00:00:00 Completed [facility] TDAP 2012-08-26 00:00:00 Completed [facility] TDAP 2012-08-26 00:00:00 Completed [facility] TDAP 2012-08-26 00:00:00 Completed [facility] TDAP 2012-08-26 00:00:00 Completed [facility] TDAP 2012-08-26 00:00:00 Completed [facility] TDAP 2012-08-26 00:00:00 Completed [facility] TDAP 2012-08-26 00:00:00 Completed [facility] TDAP 2012-08-26 00:00:00 Completed [facility] TDAP 2012-08-26 00:00:00 Completed [facility] TDAP 2012-08-26 00:00:00 Completed [facility] TDAP 2012-08-26 00:00:00 Completed [facility] TDAP 2012-08-26 00:00:00 Completed [facility] TDAP 2012-08-26 00:00:00 Completed [facility] TDAP 2012-08-26 00:00:00 Completed [facility] TDAP 2012-08-26 00:00:00 Completed [facility] TDAP 2012-08-26 00:00:00 Completed [facility] TDAP 2012-08-26 00:00:00 Completed [facility] TDAP 2012-08-26 00:00:00 Completed [facility] TDAP 2012-08-26 00:00:00 Completed [facility] TDAP 2012-08-26 00:00:00 Completed [facility] TDAP 2012-08-26 00:00:00 Completed [facility] TDAP 2012-08-26 00:00:00 Completed [facility] TDAP 2012-08-26 00:00:00 Completed [facility] TDAP 2012-08-26 00:00:00 Completed [facility] TDAP 2012-08-26 00:00:00 Completed [facility] TDAP 2012-08-26 00:00:00 Completed [facility] TDAP 2012-08-26 00:00:00 Completed [facility] TDAP 2012-08-26 00:00:00 Completed [facility] TDAP 2012-08-26 00:00:00 Completed [facility] TDAP 2012-08-26 00:00:00 Completed [facility] TDAP 2012-08-26 00:00:00 Completed [facility] TDAP 2012-08-26 00:00:00 Completed [facility] TDAP 2012-08-26 00:00:00 Completed [facility] TDAP 2012-08-26 00:00:00 Completed [facility] TDAP 2012-08-26 00:00:00 Completed [facility] TDAP 2012-08-26 00:00:00 Completed [facility] TDAP 2012-08-26 00:00:00 Completed [facility] TDAP 2012-08-26 00:00:00 Completed [facility] TDAP 2012-08-26 00:00:00 Completed [facility] TDAP 2012-08-26 00:00:00 Completed [facility] TDAP 2012-08-26 00:00:00 Completed [facility] TDAP 2012-08-26 00:00:00 Completed [facility] TDAP 2012-08-26 00:00:00 Completed [facility] TDAP 2012-08-26 00:00:00 Completed [facility] TDAP 2012-08-26 00:00:00 Completed [facility] TDAP 2012-08-26 00:00:00 Completed [facility] TDAP 2012-08-26 00:00:00 Completed [facility] TDAP 2012-08-26 00:00:00 Completed [facility] TDAP 2012-08-26 00:00:00 Completed [facility] TDAP 2012-08-26 00:00:00 Completed [facility] TDAP 2012-08-26 00:00:00 Completed [facility] TDAP 2012-08-26 00:00:00 Completed [facility] TDAP 2012-08-26 00:00:00 Completed [facility] TDAP 2012-08-26 00:00:00 Completed [facility] TDAP 2012-08-26 00:00:00 Completed [facility] TDAP 2012-08-26 00:00:00 Completed [facility] TDAP 2012-08-26 00:00:00 Completed [facility] TDAP 2012-08-26 00:00:00 Completed [facility] TDAP 2012-08-26 00:00:00 Completed [facility] TDAP 2012-08-26 00:00:00 Completed [facility] TDAP 2012-08-26 00:00:00 Completed [facility] TDAP 2012-08-26 00:00:00 Completed [facility] TDAP 2012-08-26 00:00:00 Completed [facility] TDAP 2012-08-26 00:00:00 Completed [facility] TDAP 2012-08-26 00:00:00 Completed [facility] TDAP 2012-08-26 00:00:00 Completed [facility] TDAP 2012-08-26 00:00:00 Completed [facility] TDAP 2012-08-26 00:00:00 Completed [facility] TDAP 2012-08-26 00:00:00 Completed [facility] TDAP 2012-08-26 00:00:00 Completed [facility] TDAP 2012-08-26 00:00:00 Completed [facility] TDAP 2012-08-26 00:00:00 Completed [facility] TDAP 2012-08-26 00:00:00 Completed [facility] TDAP 2012-08-26 00:00:00 Completed [facility] TDAP 2012-08-26 00:00:00 Completed [facility] TDAP 2012-08-26 00:00:00 Completed [facility] TDAP 2012-08-26 00:00:00 Completed [facility] TDAP 2012-08-26 00:00:00 Completed [facility] TDAP 2012-08-26 00:00:00 Completed [facility] TDAP 2012-08-26 00:00:00 Completed [facility] TDAP 2012-08-26 00:00:00 Completed [facility] TDAP 2012-08-26 00:00:00 Completed [facility] TDAP 2012-08-26 00:00:00 Completed [facility] TDAP 2012-08-26 00:00:00 Completed [facility] TDAP 2012-08-26 00:00:00 Completed [facility] TDAP 2012-08-26 00:00:00 Completed [facility] TDAP 2012-08-26 00:00:00 Completed [facility] TDAP 2012-08-26 00:00:00 Completed [facility] TDAP Unknown Completed [facility] MMR Unknown Completed [facility] Influenza Virus Vaccine Quad IM 3+ YRS Unknown Completed [facility] Pneumococcal Polysaccharide, PPSV23 (PNEUMOVAX) Unknown Completed [facility] Influenza Virus Vaccine Unknown Completed [facility] TDAP Unknown Completed [facility] MMR Unknown Completed [facility] Influenza Virus Vaccine Quad IM 3+ YRS Unknown Completed [facility] Pneumococcal Polysaccharide, PPSV23 (PNEUMOVAX) Unknown Completed [facility] Influenza Virus Vaccine Unknown Completed [facility] TDAP Unknown Completed [facility] MMR Unknown Completed [facility] Influenza Virus Vaccine Quad IM 3+ YRS Unknown Completed [facility] Pneumococcal Polysaccharide, PPSV23 (PNEUMOVAX) Unknown Completed [facility] Influenza Virus Vaccine Unknown Completed [facility] TDAP Unknown Completed [facility] MMR Unknown Completed [facility] Influenza Virus Vaccine Quad IM 3+ YRS Unknown Completed [facility] Pneumococcal Polysaccharide, PPSV23 (PNEUMOVAX) Unknown Completed [facility] Influenza Virus Vaccine Unknown Completed [facility] TDAP Unknown Completed [facility] MMR Unknown Completed [facility] Influenza Virus Vaccine Quad IM 3+ YRS Unknown Completed [facility] Pneumococcal Polysaccharide, PPSV23 (PNEUMOVAX) Unknown Completed [facility] Influenza Virus Vaccine Unknown Completed [facility] TDAP Unknown Completed [facility] MMR Unknown Completed [facility] Influenza Virus Vaccine Quad IM 3+ YRS Unknown Completed [facility] Pneumococcal Polysaccharide, PPSV23 (PNEUMOVAX) Unknown Completed [facility] Influenza Virus Vaccine Unknown Completed [facility] TDAP Unknown Completed [facility] MMR Unknown Completed [facility] Influenza Virus Vaccine Quad IM 3+ YRS Unknown Completed [facility] Pneumococcal Polysaccharide, PPSV23 (PNEUMOVAX) Unknown [facility] Influenza Virus Vaccine Unknown Completed [facility] TDAP Unknown Completed [facility] MMR Unknown Completed [facility] Influenza Virus Vaccine Quad IM 3+ YRS Unknown Completed [facility] Pneumococcal Polysaccharide, PPSV23 (PNEUMOVAX) Unknown Completed [facility] Influenza Virus Vaccine Unknown Completed [facility] TDAP Unknown Completed [facility] MMR Unknown Completed [facility] Influenza Virus Vaccine Quad IM 3+ YRS Unknown Completed [facility] Pneumococcal Polysaccharide, PPSV23 (PNEUMOVAX) Unknown Completed [facility] Influenza Virus Vaccine Unknown Completed [facility] TDAP Unknown Completed [facility] MMR Unknown Completed [facility] Influenza Virus Vaccine Quad IM 3+ YRS Unknown Completed [facility] Pneumococcal Polysaccharide, PPSV23 (PNEUMOVAX) Unknown Completed [facility] Influenza Virus Vaccine Unknown Completed [facility] TDAP Unknown Completed [facility] MMR Unknown Completed [facility] Influenza Virus Vaccine Quad IM 3+ YRS Unknown Completed [facility] Pneumococcal Polysaccharide, PPSV23 (PNEUMOVAX) Unknown Completed [facility] Influenza Virus Vaccine Unknown Completed [facility] TDAP Unknown Completed [facility] MMR Unknown Completed [facility] Influenza Virus Vaccine Quad IM 3+ YRS Unknown Completed [facility] Pneumococcal Polysaccharide, PPSV23 (PNEUMOVAX) Unknown Completed [facility] TDAP Unknown Completed [facility] MMR Unknown Completed [facility] Influenza Virus Vaccine Quad IM 3+ YRS Unknown Completed [facility] Pneumococcal Polysaccharide, PPSV23 (PNEUMOVAX) Unknown Completed [facility] TDAP Unknown Completed [facility] MMR Unknown Completed [facility] Influenza Virus Vaccine Quad IM 3+ YRS Unknown Completed [facility] Pneumococcal Polysaccharide, PPSV23 (PNEUMOVAX) Unknown Completed [facility] TDAP Unknown Completed [facility] MMR Unknown Completed [facility] Influenza Virus Vaccine Quad IM 3+ YRS Unknown Completed [facility] Pneumococcal Polysaccharide, PPSV23 (PNEUMOVAX) Unknown Completed [facility] TDAP Unknown Completed [facility] MMR Unknown Completed [facility] Influenza Virus Vaccine Quad IM 3+ YRS Unknown Completed [facility] Pneumococcal Polysaccharide, PPSV23 (PNEUMOVAX) Unknown Completed [facility] TDAP Unknown Completed [facility] MMR Unknown Completed [facility] Influenza Virus Vaccine Quad IM 3+ YRS Unknown Completed [facility] Pneumococcal Polysaccharide, PPSV23 (PNEUMOVAX) Unknown Completed [facility] TDAP Unknown Completed [facility] MMR Unknown Completed [facility] Influenza Virus Vaccine Quad IM 3+ YRS Unknown Completed [facility] Pneumococcal Polysaccharide, PPSV23 (PNEUMOVAX) Unknown Completed [facility] TDAP Unknown Completed [facility] MMR Unknown Completed [facility] Influenza Virus Vaccine Quad IM 3+ YRS Unknown Completed [facility] Pneumococcal Polysaccharide, PPSV23 (PNEUMOVAX) Unknown Completed [facility] TDAP Unknown Completed [facility] MMR Unknown Completed [facility] Influenza Virus Vaccine Quad IM 3+ YRS Unknown Completed [facility] Pneumococcal Polysaccharide, PPSV23 (PNEUMOVAX) Unknown Completed [facility] TDAP Unknown Completed [facility] MMR Unknown Completed [facility] Influenza Virus Vaccine Quad IM 3+ YRS Unknown Completed [facility] Pneumococcal Polysaccharide, PPSV23 (PNEUMOVAX) Unknown Completed [facility] TDAP Unknown Completed [facility] MMR Unknown Completed [facility] Influenza Virus Vaccine Quad IM 3+ YRS Unknown Completed [facility] Pneumococcal Polysaccharide, PPSV23 (PNEUMOVAX) Unknown Completed [facility] TDAP Unknown Completed [facility] MMR Unknown Completed [facility] Influenza Virus Vaccine Quad IM 3+ YRS Unknown Completed [facility] Pneumococcal Polysaccharide, PPSV23 (PNEUMOVAX) Unknown Completed [facility] TDAP Unknown Completed [facility] MMR Unknown Completed [facility] Influenza Virus Vaccine Quad IM 3+ YRS Unknown Completed [facility] TDAP Unknown Completed [facility] MMR Unknown Completed [facility] Influenza Virus Vaccine Quad IM 3+ YRS Unknown Completed [facility] TDAP Unknown Completed [facility] MMR Unknown Completed [facility] Influenza Virus Vaccine Quad IM 3+ YRS Unknown Completed [facility] TDAP Unknown Completed [facility] MMR Unknown Completed [facility] Influenza Virus Vaccine Quad IM 3+ YRS Unknown Completed [facility] TDAP Unknown Completed [facility] MMR Unknown Completed [facility] Influenza Virus Vaccine Quad IM 3+ YRS Unknown Completed [facility] Pneumococcal Polysaccharide, PPSV23 (PNEUMOVAX) Unknown Completed [facility] Influenza Virus Vaccine Unknown Completed [facility] TDAP Unknown Completed [facility] MMR Unknown Completed [facility] Influenza Virus Vaccine Quad IM 3+ YRS Unknown Completed [facility] Pneumococcal Polysaccharide, PPSV23 (PNEUMOVAX) Unknown Completed [facility] Influenza Virus Vaccine Unknown Completed [facility] TDAP Unknown Completed [facility] MMR Unknown Completed [facility] Influenza Virus Vaccine Quad IM 3+ YRS Unknown Completed [facility] Pneumococcal Polysaccharide, PPSV23 (PNEUMOVAX) Unknown Completed [facility] Influenza Virus Vaccine Unknown Completed [facility] TDAP Unknown Completed [facility] MMR Unknown Completed [facility] Influenza Virus Vaccine Quad IM 3+ YRS Unknown Completed [facility] Pneumococcal Polysaccharide, PPSV23 (PNEUMOVAX) Unknown Completed [facility] Influenza Virus Vaccine Unknown Completed [facility] TDAP Unknown Completed [facility] MMR Unknown Completed [facility] Influenza Virus Vaccine Quad IM 3+ YRS Unknown Completed [facility] Pneumococcal Polysaccharide, PPSV23 (PNEUMOVAX) Unknown Completed [facility] Influenza Virus Vaccine Unknown Completed [facility] Influenza Virus Vaccine Quad IM, Preserv and ABX Free 6 MO-64 YRS (FLUCELVAX) Unknown Completed [facility] TDAP Unknown Completed [facility] MMR Unknown Completed [facility] Influenza Virus Vaccine Quad IM 3+ YRS Unknown Completed [facility] Pneumococcal Polysaccharide, PPSV23 (PNEUMOVAX) Unknown Completed [facility] Influenza Virus Vaccine Unknown Completed [facility] Influenza Virus Vaccine Quad IM, Preserv and ABX Free 6 MO-64 YRS (FLUCELVAX) Unknown Completed [facility] TDAP Unknown Completed [facility] MMR Unknown Completed [facility] Influenza Virus Vaccine Quad IM 3+ YRS Unknown Completed [facility] Pneumococcal Polysaccharide, PPSV23 (PNEUMOVAX) Unknown Completed [facility] Influenza Virus Vaccine Unknown Completed [facility] TDAP Unknown Completed [facility] MMR Unknown Completed [facility] Influenza Virus Vaccine Quad IM 3+ YRS Unknown Completed [facility] Pneumococcal Polysaccharide, PPSV23 (PNEUMOVAX) Unknown Completed [facility] Influenza Virus Vaccine Unknown Completed [facility] Influenza Virus Vaccine Quad IM, Preserv and ABX Free 6 MO-64 YRS (FLUCELVAX) Unknown Completed [facility] TDAP Unknown Completed [facility] MMR Unknown Completed [facility] Influenza Virus Vaccine Quad IM 3+ YRS Unknown Completed [facility] Pneumococcal Polysaccharide, PPSV23 (PNEUMOVAX) Unknown Completed [facility] Influenza Virus Vaccine Unknown Completed [facility] Influenza Virus Vaccine Quad IM, Preserv and ABX Free 6 MO-64 YRS (FLUCELVAX) Unknown Completed [facility] TDAP Unknown Completed [facility] MMR Unknown Completed [facility] Influenza Virus Vaccine Quad IM 3+ YRS Unknown Completed [facility] Pneumococcal Polysaccharide, PPSV23 (PNEUMOVAX) Unknown Completed [facility] Influenza Virus Vaccine Unknown Completed [facility] Influenza Virus Vaccine Quad IM, Preserv and ABX Free 6 MO-64 YRS (FLUCELVAX) Unknown Completed [facility] MMR Unknown Completed [facility] Influenza Virus Vaccine Unknown Completed [facility] Influenza Virus Vaccine Quad IM, Preserv and ABX Free 6 MO-64 YRS (FLUCELVAX) Unknown Completed [facility] TDAP Unknown Completed [facility] Influenza Virus Vaccine Quad IM 3+ YRS Unknown Completed [facility] Pneumococcal Polysaccharide, PPSV23 (PNEUMOVAX) Unknown Completed [facility] TDAP Unknown Completed [facility] MMR Unknown Completed [facility] Influenza Virus Vaccine Quad IM 3+ YRS Unknown Completed [facility] Pneumococcal Polysaccharide, PPSV23 (PNEUMOVAX) Unknown Completed [facility] Influenza Virus Vaccine Unknown Completed [facility] TDAP Unknown Completed [facility] MMR Unknown Completed [facility] Influenza Virus Vaccine Quad IM 3+ YRS Unknown Completed [facility] Pneumococcal Polysaccharide, PPSV23 (PNEUMOVAX) Unknown Completed [facility] Influenza Virus Vaccine Unknown Completed [facility] Influenza Virus Vaccine Quad IM, Preserv and ABX Free 6 MO-64 YRS (FLUCELVAX) Unknown Completed [facility] TDAP Unknown Completed [facility] MMR Unknown Completed [facility] Influenza Virus Vaccine Quad IM 3+ YRS Unknown Completed [facility] Pneumococcal Polysaccharide, PPSV23 (PNEUMOVAX) Unknown Completed [facility] Influenza Virus Vaccine Unknown Completed [facility] Influenza Virus Vaccine Quad IM, Preserv and ABX Free 6 MO-64 YRS (FLUCELVAX) Unknown Completed [facility] MMR Unknown Completed [facility] Influenza Virus Vaccine Unknown Completed [facility] Influenza Virus Vaccine Quad IM, Preserv and ABX Free 6 MO-64 YRS (FLUCELVAX) Unknown Completed [facility] TDAP Unknown Completed [facility] Influenza Virus Vaccine Quad IM 3+ YRS Unknown Completed [facility] Pneumococcal Polysaccharide, PPSV23 (PNEUMOVAX) Unknown Completed [facility] TDAP Unknown Completed [facility] MMR Unknown Completed [facility] Influenza Virus Vaccine Quad IM 3+ YRS Unknown Completed [facility] Pneumococcal Polysaccharide, PPSV23 (PNEUMOVAX) Unknown Completed [facility] Influenza Virus Vaccine Unknown Completed [facility] Influenza Virus Vaccine Quad IM, Preserv and ABX Free 6 MO-64 YRS (FLUCELVAX) Unknown Completed [facility] TDAP Unknown Completed [facility] MMR Unknown Completed [facility] Influenza Virus Vaccine Quad IM 3+ YRS Unknown Completed [facility] Pneumococcal Polysaccharide, PPSV23 (PNEUMOVAX) Unknown Completed [facility] Influenza Virus Vaccine Unknown Completed [facility] Influenza Virus Vaccine Quad IM, Preserv and ABX Free 6 MO-64 YRS (FLUCELVAX) Unknown Completed [facility] TDAP Unknown Completed [facility] MMR Unknown Completed [facility] Influenza Virus Vaccine Quad IM 3+ YRS Unknown Completed [facility] Pneumococcal Polysaccharide, PPSV23 (PNEUMOVAX) Unknown Completed [facility] Influenza Virus Vaccine Unknown Completed [facility] Influenza Virus Vaccine Quad IM, Preserv and ABX Free 6 MO-64 YRS (FLUCELVAX) Unknown Completed [facility] TDAP Unknown Completed [facility] MMR Unknown Completed [facility] Influenza Virus Vaccine Quad IM 3+ YRS Unknown Completed [facility] Pneumococcal Polysaccharide, PPSV23 (PNEUMOVAX) Unknown Completed [facility] Influenza Virus Vaccine Unknown Completed [facility] Influenza Virus Vaccine Quad IM, Preserv and ABX Free 6 MO-64 YRS (FLUCELVAX) Unknown Completed [facility] MMR Unknown Completed [facility] Influenza Virus Vaccine Unknown Completed [facility] Influenza Virus Vaccine Quad IM, Preserv and ABX Free 6 MO-64 YRS (FLUCELVAX) Unknown Completed [facility] TDAP Unknown Completed [facility] Influenza Virus Vaccine Quad IM 3+ YRS Unknown Completed [facility] Pneumococcal Polysaccharide, PPSV23 (PNEUMOVAX) Unknown Completed [facility] TDAP Unknown Completed [facility] MMR Unknown Completed [facility] Influenza Virus Vaccine Quad IM 3+ YRS Unknown Completed [facility] Pneumococcal Polysaccharide, PPSV23 (PNEUMOVAX) Unknown Completed [facility] Influenza Virus Vaccine Unknown Completed [facility] Influenza Virus Vaccine Quad IM, Preserv and ABX Free 6 MO-64 YRS (FLUCELVAX) Unknown Completed [facility] TDAP Unknown Completed [facility] MMR Unknown Completed [facility] Influenza Virus Vaccine Quad IM 3+ YRS Unknown Completed [facility] Pneumococcal Polysaccharide, PPSV23 (PNEUMOVAX) Unknown Completed [facility] Influenza Virus Vaccine Unknown Completed [facility] Influenza Virus Vaccine Quad IM, Preserv and ABX Free 6 MO-64 YRS (FLUCELVAX) Unknown Completed [facility] TDAP Unknown Completed [facility] MMR Unknown Completed [facility] Influenza Virus Vaccine Quad IM 3+ YRS Unknown Completed [facility] Pneumococcal Polysaccharide, PPSV23 (PNEUMOVAX) Unknown Completed [facility] Influenza Virus Vaccine Unknown Completed [facility] Influenza Virus Vaccine Quad IM, Preserv and ABX Free 6 MO-64 YRS (FLUCELVAX) Unknown Completed [facility] TDAP Unknown Completed [facility] MMR Unknown Completed [facility] Influenza Virus Vaccine Quad IM 3+ YRS Unknown Completed [facility] Pneumococcal Polysaccharide, PPSV23 (PNEUMOVAX) Unknown [facility]pleted [facility] Influenza Virus Vaccine Unknown Completed [facility] Influenza Virus Vaccine Quad IM, Preserv and ABX Free 6 MO-64 YRS (FLUCELVAX) Unknown Completed [facility] TDAP Unknown Completed [facility] MMR Unknown Completed [facility] Influenza Virus Vaccine Quad IM 3+ YRS Unknown Completed [facility] Pneumococcal Polysaccharide, PPSV23 (PNEUMOVAX) Unknown Completed [facility] Influenza Virus Vaccine Unknown Completed [facility] Influenza Virus Vaccine Quad IM, Preserv and ABX Free 6 MO-64 YRS (FLUCELVAX) Unknown Completed [facility] MMR Unknown Completed [facility] Influenza Virus Vaccine Unknown Completed [facility] Influenza Virus Vaccine Quad IM, Preserv and ABX Free 6 MO-64 YRS (FLUCELVAX) Unknown Completed [facility] TDAP Unknown Completed [facility] Influenza Virus Vaccine Quad IM 3+ YRS Unknown Completed [facility] Pneumococcal Polysaccharide, PPSV23 (PNEUMOVAX) Unknown Completed [facility] TDAP Unknown Completed [facility] MMR Unknown Completed [facility] Influenza Virus Vaccine Quad IM 3+ YRS Unknown Completed [facility] Pneumococcal Polysaccharide, PPSV23 (PNEUMOVAX) Unknown Completed [facility] Influenza Virus Vaccine Unknown Completed [facility] Influenza Virus Vaccine Quad IM, Preserv and ABX Free 6 MO-64 YRS (FLUCELVAX) Unknown Completed [facility] TDAP Unknown Completed [facility] MMR Unknown Completed [facility] Influenza Virus Vaccine Quad IM 3+ YRS Unknown Completed [facility] Pneumococcal Polysaccharide, PPSV23 (PNEUMOVAX) Unknown Completed [facility] Influenza Virus Vaccine Unknown Completed [facility] Influenza Virus Vaccine Quad IM, Preserv and ABX Free 6 MO-64 YRS (FLUCELVAX) Unknown Completed [facility] TDAP Unknown Completed [facility] MMR Unknown Completed [facility] Influenza Virus Vaccine Quad IM 3+ YRS Unknown Completed [facility] Pneumococcal Polysaccharide, PPSV23 (PNEUMOVAX) Unknown Completed [facility] Influenza Virus Vaccine Unknown Completed [facility] Influenza Virus Vaccine Quad IM, Preserv and ABX Free 6 MO-64 YRS (FLUCELVAX) Unknown Completed [facility] TDAP Unknown Completed [facility] MMR Unknown Completed [facility] Influenza Virus Vaccine Quad IM 3+ YRS Unknown Completed [facility] Pneumococcal Polysaccharide, PPSV23 (PNEUMOVAX) Unknown Completed [facility] Influenza Virus Vaccine Unknown Completed [facility] Influenza Virus Vaccine Quad IM, Preserv and ABX Free 6 MO-64 YRS (FLUCELVAX) Unknown Completed [facility] TDAP Unknown Completed [facility] MMR Unknown Completed [facility] Influenza Virus Vaccine Quad IM 3+ YRS Unknown Completed [facility] Pneumococcal Polysaccharide, PPSV23 (PNEUMOVAX) Unknown Completed [facility] Influenza Virus Vaccine Unknown Completed [facility] Influenza Virus Vaccine Quad IM, Preserv and ABX Free 6 MO-64 YRS (FLUCELVAX) Unknown Completed [facility] MMR Unknown Completed [facility] Influenza Virus Vaccine Unknown Completed [facility] Influenza Virus Vaccine Quad IM, Preserv and ABX Free 6 MO-64 YRS (FLUCELVAX) Unknown Completed [facility] TDAP Unknown Completed [facility] Influenza Virus Vaccine Quad IM 3+ YRS Unknown Completed [facility] Pneumococcal Polysaccharide, PPSV23 (PNEUMOVAX) Unknown Completed [facility] TDAP Unknown Completed [facility] MMR Unknown Completed [facility] Influenza Virus Vaccine Quad IM 3+ YRS Unknown Completed [facility] Pneumococcal Polysaccharide, PPSV23 (PNEUMOVAX) Unknown Completed [facility] Influenza Virus Vaccine Unknown Completed [facility] Influenza Virus Vaccine Quad IM, Preserv and ABX Free 6 MO-64 YRS (FLUCELVAX) Unknown Completed [facility] TDAP Unknown Completed [facility] MMR Unknown Completed [facility] Influenza Virus Vaccine Quad IM 3+ YRS Unknown Completed [facility] Pneumococcal Polysaccharide, PPSV23 (PNEUMOVAX) Unknown Completed [facility] Influenza Virus Vaccine Unknown Completed [facility] Influenza Virus Vaccine Quad IM, Preserv and ABX Free 6 MO-64 YRS (FLUCELVAX) Unknown Completed [facility] MMR Unknown Completed [facility] Influenza Virus Vaccine Unknown Completed [facility] Influenza Virus Vaccine Quad IM, Preserv and ABX Free 6 MO-64 YRS (FLUCELVAX) Unknown Completed [facility] TDAP Unknown Completed [facility] Influenza Virus Vaccine Quad IM 3+ YRS Unknown Completed [facility] Pneumococcal Polysaccharide, PPSV23 (PNEUMOVAX) Unknown Completed [facility] TDAP Unknown Completed [facility] MMR Unknown Completed [facility] Influenza Virus Vaccine Quad IM 3+ YRS Unknown Completed [facility] Pneumococcal Polysaccharide, PPSV23 (PNEUMOVAX) Unknown Completed [facility] Influenza Virus Vaccine Unknown Completed [facility] Influenza Virus Vaccine Quad IM, Preserv and ABX Free 6 MO-64 YRS (FLUCELVAX) Unknown Completed [facility] TDAP Unknown Completed [facility] MMR Unknown Completed [facility] Influenza Virus Vaccine Quad IM 3+ YRS Unknown Completed [facility] Pneumococcal Polysaccharide, PPSV23 (PNEUMOVAX) Unknown Completed [facility] Influenza Virus Vaccine Unknown Completed [facility] Influenza Virus Vaccine Quad IM, Preserv and ABX Free 6 MO-64 YRS (FLUCELVAX) Unknown Completed [facility] TDAP Unknown Completed [facility] MMR Unknown Completed [facility] Influenza Virus Vaccine Quad IM 3+ YRS Unknown Completed [facility] Pneumococcal Polysaccharide, PPSV23 (PNEUMOVAX) Unknown Completed [facility] Influenza Virus Vaccine Unknown Completed [facility] Influenza Virus Vaccine Quad IM, Preserv and ABX Free 6 MO-64 YRS (FLUCELVAX) Unknown Completed [facility] TDAP Unknown Completed [facility] MMR Unknown Completed [facility] Influenza Virus Vaccine Quad IM 3+ YRS Unknown Completed [facility] Pneumococcal Polysaccharide, PPSV23 (PNEUMOVAX) Unknown Completed [facility] Influenza Virus Vaccine Unknown Completed [facility] Influenza Virus Vaccine Quad IM, Preserv and ABX Free 6 MO-64 YRS (FLUCELVAX) Unknown Completed [facility] MMR Unknown Completed [facility] Influenza Virus Vaccine Unknown Completed [facility] Influenza Virus Vaccine Quad IM, Preserv and ABX Free 6 MO-64 YRS (FLUCELVAX) Unknown Completed [facility] TDAP Unknown Completed [facility] Influenza Virus Vaccine Quad IM 3+ YRS Unknown Completed [facility] Pneumococcal Polysaccharide, PPSV23 (PNEUMOVAX) Unknown Completed [facility] TDAP Unknown Completed [facility] MMR Unknown Completed [facility] Influenza Virus Vaccine Quad IM 3+ YRS Unknown Completed [facility] Pneumococcal Polysaccharide, PPSV23 (PNEUMOVAX) Unknown Completed [facility] Influenza Virus Vaccine Unknown Completed [facility] Influenza Virus Vaccine Quad IM, Preserv and ABX Free 6 MO-64 YRS (FLUCELVAX) Unknown Completed [facility] TDAP Unknown Completed [facility] MMR Unknown Completed [facility] Influenza Virus Vaccine Quad IM 3+ YRS Unknown Completed [facility] Pneumococcal Polysaccharide, PPSV23 (PNEUMOVAX) Unknown Completed [facility] Influenza Virus Vaccine Unknown Completed [facility] Influenza Virus Vaccine Quad IM, Preserv and ABX Free 6 MO-64 YRS (FLUCELVAX) Unknown Completed [facility] TDAP Unknown Completed [facility] MMR Unknown Completed [facility] Influenza Virus Vaccine Quad IM 3+ YRS Unknown Completed [facility] Pneumococcal Polysaccharide, PPSV23 (PNEUMOVAX) Unknown Completed [facility] Influenza Virus Vaccine Unknown Completed [facility] Influenza Virus Vaccine Quad IM, Preserv and ABX Free 6 MO-64 YRS (FLUCELVAX) Unknown Completed [facility] TDAP Unknown Completed [facility] MMR Unknown Completed [facility] Influenza Virus Vaccine Quad IM 3+ YRS Unknown Completed [facility] Pneumococcal Polysaccharide, PPSV23 (PNEUMOVAX) Unknown Completed [facility] Influenza Virus Vaccine Unknown Completed [facility] Influenza Virus Vaccine Quad IM, Preserv and ABX Free 6 MO-64 YRS (FLUCELVAX) Unknown Completed [facility] TDAP Unknown Completed [facility] MMR Unknown Completed [facility] Influenza Virus Vaccine Quad IM 3+ YRS Unknown Completed [facility] Pneumococcal Polysaccharide, PPSV23 (PNEUMOVAX) Unknown Completed [facility] Influenza Virus Vaccine Unknown Completed [facility] Influenza Virus Vaccine Quad IM, Preserv and ABX Free 6 MO-64 YRS (FLUCELVAX) Unknown Completed [facility] TDAP Unknown Completed [facility] MMR Unknown Completed [facility] Influenza Virus Vaccine Quad IM 3+ YRS Unknown Completed [facility] Pneumococcal Polysaccharide, PPSV23 (PNEUMOVAX) Unknown Completed [facility] Influenza Virus Vaccine Unknown Completed [facility] Influenza Virus Vaccine Quad IM, Preserv and ABX Free 6 MO-64 YRS (FLUCELVAX) Unknown Completed [facility] TDAP Unknown Completed [facility] MMR Unknown Completed [facility] Influenza Virus Vaccine Quad IM 3+ YRS Unknown Completed [facility] Pneumococcal Polysaccharide, PPSV23 (PNEUMOVAX) Unknown Completed [facility] Influenza Virus Vaccine Unknown Completed [facility] Influenza Virus Vaccine Quad IM, Preserv and ABX Free 6 MO-64 YRS (FLUCELVAX) Unknown Completed [facility] MMR Unknown Completed [facility] Influenza Virus Vaccine Unknown Completed [facility] Influenza Virus Vaccine Quad IM, Preserv and ABX Free 6 MO-64 YRS (FLUCELVAX) Unknown Completed [facility] TDAP Unknown Completed [facility] Influenza Virus Vaccine Quad IM 3+ YRS Unknown Completed [facility] Pneumococcal Polysaccharide, PPSV23 (PNEUMOVAX) Unknown Completed [facility] TDAP Unknown Completed [facility] MMR Unknown Completed [facility] Influenza Virus Vaccine Quad IM 3+ YRS Unknown Completed [facility] Pneumococcal Polysaccharide, PPSV23 (PNEUMOVAX) Unknown Completed [facility] Influenza Virus Vaccine Unknown Completed [facility] Influenza Virus Vaccine Quad IM, Preserv and ABX Free 6 MO-64 YRS (FLUCELVAX) Unknown Completed [facility] TDAP Unknown Completed [facility] MMR Unknown Completed [facility] Influenza Virus Vaccine Quad IM 3+ YRS Unknown Completed [facility] Pneumococcal Polysaccharide, PPSV23 (PNEUMOVAX) Unknown Completed [facility] Influenza Virus Vaccine Unknown Completed [facility] Influenza Virus Vaccine Quad IM, Preserv and ABX Free 6 MO-64 YRS (FLUCELVAX) Unknown Completed [facility] TDAP Unknown Completed [facility] MMR Unknown Completed [facility] Influenza Virus Vaccine Quad IM 3+ YRS Unknown Completed [facility] Pneumococcal Polysaccharide, PPSV23 (PNEUMOVAX) Unknown Completed [facility] Influenza Virus Vaccine Unknown Completed [facility] Influenza Virus Vaccine Quad IM, Preserv and ABX Free 6 MO-64 YRS (FLUCELVAX) Unknown Completed [facility] TDAP Unknown Completed [facility] MMR Unknown Completed [facility] Influenza Virus Vaccine Quad IM 3+ YRS Unknown Completed [facility] Pneumococcal Polysaccharide, PPSV23 (PNEUMOVAX) Unknown Completed [facility] Influenza Virus Vaccine Unknown Completed [facility] Influenza Virus Vaccine Quad IM, Preserv and ABX Free 6 MO-64 YRS (FLUCELVAX) Unknown Completed [facility] TDAP Unknown Completed [facility] MMR Unknown Completed [facility] Influenza Virus Vaccine Quad IM 3+ YRS Unknown Completed [facility] Pneumococcal Polysaccharide, PPSV23 (PNEUMOVAX) Unknown Completed [facility] Influenza Virus Vaccine Unknown Completed [facility] Influenza Virus Vaccine Quad IM, Preserv and ABX Free 6 MO-64 YRS (FLUCELVAX) Unknown Completed [facility] TDAP Unknown Completed [facility] MMR Unknown Completed [facility] Influenza Virus Vaccine Quad IM 3+ YRS Unknown Completed [facility] Pneumococcal Polysaccharide, PPSV23 (PNEUMOVAX) Unknown Completed [facility] Influenza Virus Vaccine Unknown Completed [facility] Influenza Virus Vaccine Quad IM, Preserv and ABX Free 6 MO-64 YRS (FLUCELVAX) Unknown Completed [facility] TDAP Unknown Completed [facility] MMR Unknown Completed [facility] Influenza Virus Vaccine Quad IM 3+ YRS Unknown Completed [facility] Pneumococcal Polysaccharide, PPSV23 (PNEUMOVAX) Unknown Completed [facility] Influenza Virus Vaccine Unknown Completed [facility] Influenza Virus Vaccine Quad IM, Preserv and ABX Free 6 MO-64 YRS (FLUCELVAX) Unknown Completed [facility] TDAP Unknown Completed [facility] MMR Unknown Completed [facility] Influenza Virus Vaccine Quad IM 3+ YRS Unknown Completed [facility] Pneumococcal Polysaccharide, PPSV23 (PNEUMOVAX) Unknown Completed [facility] Influenza Virus Vaccine Unknown Completed [facility] Influenza Virus Vaccine Quad IM, Preserv and ABX Free 6 MO-64 YRS (FLUCELVAX) Unknown Completed [facility] TDAP Unknown Completed [facility] MMR Unknown Completed [facility] Influenza Virus Vaccine Quad IM 3+ YRS Unknown Completed [facility] Pneumococcal Polysaccharide, PPSV23 (PNEUMOVAX) Unknown Completed [facility] Influenza Virus Vaccine Unknown Completed [facility] Influenza Virus Vaccine Quad IM, Preserv and ABX Free 6 MO-64 YRS (FLUCELVAX) Unknown Completed [facility] TDAP Unknown Completed [facility] MMR Unknown Completed [facility] Influenza Virus Vaccine Quad IM 3+ YRS Unknown Completed [facility] Pneumococcal Polysaccharide, PPSV23 (PNEUMOVAX) Unknown Completed [facility] Influenza Virus Vaccine Unknown Completed [facility] Influenza Virus Vaccine Quad IM, Preserv and ABX Free 6 MO-64 YRS (FLUCELVAX) Unknown Completed [facility] TDAP Unknown Completed [facility] MMR Unknown Completed [facility] Influenza Virus Vaccine Quad IM 3+ YRS Unknown Completed [facility] Pneumococcal Polysaccharide, PPSV23 (PNEUMOVAX) Unknown Completed [facility] Influenza Virus Vaccine Unknown Completed [facility] Influenza Virus Vaccine Quad IM, Preserv and ABX Free 6 MO-64 YRS (FLUCELVAX) Unknown Completed [facility] TDAP Unknown Completed [facility] MMR Unknown Completed [facility] Influenza Virus Vaccine Quad IM 3+ YRS Unknown Completed [facility] Pneumococcal Polysaccharide, PPSV23 (PNEUMOVAX) Unknown Completed [facility] Influenza Virus Vaccine Unknown Completed [facility] Influenza Virus Vaccine Quad IM, Preserv and ABX Free 6 MO-64 YRS (FLUCELVAX) Unknown Completed [facility] TDAP Unknown Completed [facility] MMR Unknown Completed [facility] Influenza Virus Vaccine Quad IM 3+ YRS Unknown Completed [facility] Pneumococcal Polysaccharide, PPSV23 (PNEUMOVAX) Unknown Completed [facility] Influenza Virus Vaccine Unknown Completed [facility] Influenza Virus Vaccine Quad IM, Preserv and ABX Free 6 MO-64 YRS (FLUCELVAX) Unknown Completed [facility] TDAP Unknown Completed [facility] MMR Unknown Completed [facility] Influenza Virus Vaccine Quad IM 3+ YRS Unknown Completed [facility] Pneumococcal Polysaccharide, PPSV23 (PNEUMOVAX) Unknown Completed [facility] Influenza Virus Vaccine Unknown Completed [facility] Influenza Virus Vaccine Quad IM, Preserv and ABX Free 6 MO-64 YRS (FLUCELVAX) Unknown Completed [facility] TDAP Unknown Completed [facility] MMR Unknown Completed [facility] Influenza Virus Vaccine Quad IM 3+ YRS Unknown Completed [facility] Pneumococcal Polysaccharide, PPSV23 (PNEUMOVAX) Unknown Completed [facility] Influenza Virus Vaccine Unknown Completed [facility] Influenza Virus Vaccine Quad IM, Preserv and ABX Free 6 MO-64 YRS (FLUCELVAX) Unknown Completed [facility] TDAP Unknown Completed [facility] MMR Unknown Completed [facility] Influenza Virus Vaccine Quad IM 3+ YRS Unknown Completed [facility] Pneumococcal Polysaccharide, PPSV23 (PNEUMOVAX) Unknown Completed [facility] Influenza Virus Vaccine Unknown Completed [facility] Influenza Virus Vaccine Quad IM, Preserv and ABX Free 6 MO-64 YRS (FLUCELVAX) Unknown Completed [facility] TDAP Unknown Completed [facility] MMR Unknown Completed [facility] Influenza Virus Vaccine Quad IM 3+ YRS Unknown Completed [facility] Pneumococcal Polysaccharide, PPSV23 (PNEUMOVAX) Unknown Completed [facility] Influenza Virus Vaccine Unknown Completed [facility] Influenza Virus Vaccine Quad IM, Preserv and ABX Free 6 MO-64 YRS (FLUCELVAX) Unknown Completed [facility] TDAP Unknown Completed [facility] MMR Unknown Completed [facility] Influenza Virus Vaccine Quad IM 3+ YRS Unknown Completed [facility] Pneumococcal Polysaccharide, PPSV23 (PNEUMOVAX) Unknown Completed [facility] Influenza Virus Vaccine Unknown Completed [facility] Influenza Virus Vaccine Quad IM, Preserv and ABX Free 6 MO-64 YRS (FLUCELVAX) Unknown Completed [facility] TDAP Unknown Completed [facility] MMR Unknown Completed [facility] Influenza Virus Vaccine Quad IM 3+ YRS Unknown Completed [facility] Pneumococcal Polysaccharide, PPSV23 (PNEUMOVAX) Unknown Completed [facility] Influenza Virus Vaccine Unknown Completed [facility] Influenza Virus Vaccine Quad IM, Preserv and ABX Free 6 MO-64 YRS (FLUCELVAX) Unknown Completed [facility] TDAP Unknown Completed [facility] MMR Unknown Completed [facility] Influenza Virus Vaccine Quad IM 3+ YRS Unknown Completed [facility] Pneumococcal Polysaccharide, PPSV23 (PNEUMOVAX) Unknown Completed [facility] Influenza Virus Vaccine Unknown Completed [facility] Influenza Virus Vaccine Quad IM, Preserv and ABX Free 6 MO-64 YRS (FLUCELVAX) Unknown Completed [facility] TDAP Unknown Completed [facility] MMR Unknown Completed [facility] Influenza Virus Vaccine Quad IM 3+ YRS Unknown Completed [facility] Pneumococcal Polysaccharide, PPSV23 (PNEUMOVAX) Unknown Completed [facility] Influenza Virus Vaccine Unknown Completed [facility] Influenza Virus Vaccine Quad IM, Preserv and ABX Free 6 MO-64 YRS (FLUCELVAX) Unknown Completed [facility] TDAP Unknown Completed [facility] MMR Unknown Completed [facility] Influenza Virus Vaccine Quad IM 3+ YRS Unknown Completed [facility] Pneumococcal Polysaccharide, PPSV23 (PNEUMOVAX) Unknown Completed [facility] Influenza Virus Vaccine Unknown Completed [facility] Influenza Virus Vaccine Quad IM, Preserv and ABX Free 6 MO-64 YRS (FLUCELVAX) Unknown Completed [facility] TDAP Unknown Completed [facility] MMR Unknown Completed [facility] Influenza Virus Vaccine Quad IM 3+ YRS Unknown Completed [facility] Pneumococcal Polysaccharide, PPSV23 (PNEUMOVAX) Unknown Completed [facility] Influenza Virus Vaccine Unknown Completed [facility] Influenza Virus Vaccine Quad IM, Preserv and ABX Free 6 MO-64 YRS (FLUCELVAX) Unknown Completed [facility] TDAP Unknown Completed [facility] MMR Unknown Completed [facility] Influenza Virus Vaccine Quad IM 3+ YRS Unknown Completed [facility] Pneumococcal Polysaccharide, PPSV23 (PNEUMOVAX) Unknown Completed [facility] Influenza Virus Vaccine Unknown Completed [facility] Influenza Virus Vaccine Quad IM, Preserv and ABX Free 6 MO-64 YRS (FLUCELVAX) Unknown Completed [facility] TDAP Unknown Completed [facility] MMR Unknown Completed [facility] Influenza Virus Vaccine Quad IM 3+ YRS Unknown Completed [facility] Pneumococcal Polysaccharide, PPSV23 (PNEUMOVAX) Unknown Completed [facility] Influenza Virus Vaccine Unknown Completed [facility] Influenza Virus Vaccine Quad IM, Preserv and ABX Free 6 MO-64 YRS (FLUCELVAX) Unknown Completed [facility] TDAP Unknown Completed [facility] MMR Unknown Completed [facility] Influenza Virus Vaccine Quad IM 3+ YRS Unknown Completed [facility] Pneumococcal Polysaccharide, PPSV23 (PNEUMOVAX) Unknown Completed [facility] Influenza Virus Vaccine Unknown Completed [facility] Influenza Virus Vaccine Quad IM, Preserv and ABX Free 6 MO-64 YRS (FLUCELVAX) Unknown Completed [facility] TDAP Unknown Completed [facility] MMR Unknown Completed [facility] Influenza Virus Vaccine Quad IM 3+ YRS Unknown Completed [facility] Pneumococcal Polysaccharide, PPSV23 (PNEUMOVAX) Unknown Completed [facility] Influenza Virus Vaccine Unknown Completed [facility] Influenza Virus Vaccine Quad IM, Preserv and ABX Free 6 MO-64 YRS (FLUCELVAX) Unknown Completed [facility] TDAP Unknown Completed [facility] MMR Unknown Completed [facility] Influenza Virus Vaccine Quad IM 3+ YRS Unknown Completed [facility] Pneumococcal Polysaccharide, PPSV23 (PNEUMOVAX) Unknown Completed [facility] Influenza Virus Vaccine Unknown Completed [facility] Influenza Virus Vaccine Quad IM, Preserv and ABX Free 6 MO-64 YRS (FLUCELVAX) Unknown Completed [facility] TDAP Unknown Completed [facility] MMR Unknown Completed [facility] Influenza Virus Vaccine Quad IM 3+ YRS Unknown Completed [facility] Pneumococcal Polysaccharide, PPSV23 (PNEUMOVAX) Unknown Completed [facility] Influenza Virus Vaccine Unknown Completed [facility] Influenza Virus Vaccine Quad IM, Preserv and ABX Free 6 MO-64 YRS (FLUCELVAX) Unknown Completed [facility] TDAP Unknown Completed [facility] MMR Unknown Completed [facility] Influenza Virus Vaccine Quad IM 3+ YRS Unknown Completed [facility] Pneumococcal Polysaccharide, PPSV23 (PNEUMOVAX) Unknown Completed [facility] Influenza Virus Vaccine Unknown Completed [facility] Influenza Virus Vaccine Quad IM, Preserv and ABX Free 6 MO-64 YRS (FLUCELVAX) Unknown Completed [facility] TDAP Unknown Completed [facility] MMR Unknown Completed [facility] Influenza Virus Vaccine Quad IM 3+ YRS Unknown Completed [facility] Pneumococcal Polysaccharide, PPSV23 (PNEUMOVAX) Unknown Completed [facility] Influenza Virus Vaccine Unknown Completed [facility] Influenza Virus Vaccine Quad IM, Preserv and ABX Free 6 MO-64 YRS (FLUCELVAX) Unknown Completed [facility] TDAP Unknown Completed [facility] MMR Unknown Completed [facility] Influenza Virus Vaccine Quad IM 3+ YRS Unknown Completed [facility] Pneumococcal Polysaccharide, PPSV23 (PNEUMOVAX) Unknown Completed [facility] Influenza Virus Vaccine Unknown Completed [facility] Influenza Virus Vaccine Quad IM, Preserv and ABX Free 6 MO-64 YRS (FLUCELVAX) Unknown Completed [facility] TDAP Unknown Completed [facility] MMR Unknown Completed [facility] Influenza Virus Vaccine Quad IM 3+ YRS Unknown Completed [facility] Pneumococcal Polysaccharide, PPSV23 (PNEUMOVAX) Unknown Completed [facility] Influenza Virus Vaccine Unknown Completed [facility] Influenza Virus Vaccine Quad IM, Preserv and ABX Free 6 MO-64 YRS (FLUCELVAX) Unknown Completed [facility] TDAP Unknown Completed [facility] MMR Unknown Completed [facility] Influenza Virus Vaccine Quad IM 3+ YRS Unknown Completed [facility] Pneumococcal Polysaccharide, PPSV23 (PNEUMOVAX) Unknown Completed [facility] Influenza Virus Vaccine Unknown Completed [facility] Influenza Virus Vaccine Quad IM, Preserv and ABX Free 6 MO-64 YRS (FLUCELVAX) Unknown Completed [facility] TDAP Unknown Completed [facility] MMR Unknown Completed [facility] Influenza Virus Vaccine Quad IM 3+ YRS Unknown Completed [facility] Pneumococcal Polysaccharide, PPSV23 (PNEUMOVAX) Unknown Completed [facility] Influenza Virus Vaccine Unknown Completed [facility] Influenza Virus Vaccine Quad IM, Preserv and ABX Free 6 MO-64 YRS (FLUCELVAX) Unknown Completed [facility] TDAP Unknown Completed [facility] MMR Unknown Completed [facility] Influenza Virus Vaccine Quad IM 3+ YRS Unknown Completed [facility] Pneumococcal Polysaccharide, PPSV23 (PNEUMOVAX) Unknown Completed [facility] Influenza Virus Vaccine Unknown Completed [facility] Influenza Virus Vaccine Quad IM, Preserv and ABX Free 6 MO-64 YRS (FLUCELVAX) Unknown Completed [facility] TDAP Unknown Completed [facility] MMR Unknown Completed [facility] Influenza Virus Vaccine Quad IM 3+ YRS Unknown Completed [facility] Pneumococcal Polysaccharide, PPSV23 (PNEUMOVAX) Unknown Completed [facility] Influenza Virus Vaccine Unknown Completed [facility] Influenza Virus Vaccine Quad IM, Preserv and ABX Free 6 MO-64 YRS (FLUCELVAX) Unknown Completed [facility] TDAP Unknown Completed [facility] MMR Unknown Completed [facility] Influenza Virus Vaccine Quad IM 3+ YRS Unknown Completed [facility] Pneumococcal Polysaccharide, PPSV23 (PNEUMOVAX) Unknown Completed [facility] Influenza Virus Vaccine Unknown Completed [facility] Influenza Virus Vaccine Quad IM, Preserv and ABX Free 6 MO-64 YRS (FLUCELVAX) Unknown Completed [facility] TDAP Unknown Completed [facility] MMR Unknown Completed [facility] Influenza Virus Vaccine Quad IM 3+ YRS Unknown Completed [facility] Pneumococcal Polysaccharide, PPSV23 (PNEUMOVAX) Unknown Completed [facility] Influenza Virus Vaccine Unknown Completed [facility] Influenza Virus Vaccine Quad IM, Preserv and ABX Free 6 MO-64 YRS (FLUCELVAX) Unknown Completed [facility] TDAP Unknown Completed [facility] MMR Unknown Completed [facility] Influenza Virus Vaccine Quad IM 3+ YRS Unknown Completed [facility] Pneumococcal Polysaccharide, PPSV23 (PNEUMOVAX) Unknown Completed [facility] Influenza Virus Vaccine Unknown Completed [facility] Influenza Virus Vaccine Quad IM, Preserv and ABX Free 6 MO-64 YRS (FLUCELVAX) Unknown Completed [facility] TDAP Unknown Completed [facility] MMR Unknown Completed [facility] Influenza Virus Vaccine Quad IM 3+ YRS Unknown Completed [facility] Pneumococcal Polysaccharide, PPSV23 (PNEUMOVAX) Unknown Completed [facility] Influenza Virus Vaccine Unknown Completed [facility] Influenza Virus Vaccine Quad IM, Preserv and ABX Free 6 MO-64 YRS (FLUCELVAX) Unknown Completed [facility] TDAP Unknown Completed [facility] MMR Unknown Completed [facility] Influenza Virus Vaccine Quad IM 3+ YRS Unknown Completed [facility] Pneumococcal Polysaccharide, PPSV23 (PNEUMOVAX) Unknown Completed [facility] Influenza Virus Vaccine Unknown Completed [facility] Influenza Virus Vaccine Quad IM, Preserv and ABX Free 6 MO-64 YRS (FLUCELVAX) Unknown Completed [facility] TDAP Unknown Completed [facility] MMR Unknown Completed [facility] Influenza Virus Vaccine Quad IM 3+ YRS Unknown Completed [facility] Pneumococcal Polysaccharide, PPSV23 (PNEUMOVAX) Unknown Completed [facility] Influenza Virus Vaccine Unknown Completed [facility] Influenza Virus Vaccine Quad IM, Preserv and ABX Free 6 MO-64 YRS (FLUCELVAX) Unknown Completed [facility] TDAP Unknown Completed [facility] MMR Unknown Completed [facility] Influenza Virus Vaccine Quad IM 3+ YRS Unknown Completed [facility] Pneumococcal Polysaccharide, PPSV23 (PNEUMOVAX) Unknown Completed [facility] Influenza Virus Vaccine Unknown Completed [facility] Influenza Virus Vaccine Quad IM, Preserv and ABX Free 6 MO-64 YRS (FLUCELVAX) Unknown Completed [facility] TDAP Unknown Completed [facility] MMR Unknown Completed [facility] Influenza Virus Vaccine Quad IM 3+ YRS Unknown Completed [facility] Pneumococcal Polysaccharide, PPSV23 (PNEUMOVAX) Unknown Completed [facility] Influenza Virus Vaccine Unknown Completed [facility] Influenza Virus Vaccine Quad IM, Preserv and ABX Free 6 MO-64 YRS (FLUCELVAX) Unknown Completed [facility] TDAP Unknown Completed [facility] MMR Unknown Completed [facility] Influenza Virus Vaccine Quad IM 3+ YRS Unknown Completed [facility] Pneumococcal Polysaccharide, PPSV23 (PNEUMOVAX) Unknown Completed [facility] Influenza Virus Vaccine Unknown Completed [facility] Influenza Virus Vaccine Quad IM, Preserv and ABX Free 6 MO-64 YRS (FLUCELVAX) Unknown Completed [facility] TDAP Unknown Completed [facility] MMR Unknown Completed [facility] Influenza Virus Vaccine Quad IM 3+ YRS Unknown Completed [facility] Pneumococcal Polysaccharide, PPSV23 (PNEUMOVAX) Unknown Completed [facility] Influenza Virus Vaccine Unknown Completed [facility] Influenza Virus Vaccine Quad IM, Preserv and ABX Free 6 MO-64 YRS (FLUCELVAX) Unknown Completed [facility] TDAP Unknown Completed [facility] MMR Unknown Completed [facility] Influenza Virus Vaccine Quad IM 3+ YRS Unknown Completed [facility] Pneumococcal Polysaccharide, PPSV23 (PNEUMOVAX) Unknown Completed [facility] Influenza Virus Vaccine Unknown Completed [facility] Influenza Virus Vaccine Quad IM, Preserv and ABX Free 6 MO-64 YRS (FLUCELVAX) Unknown Completed [facility] TDAP Unknown Completed [facility] MMR Unknown Completed [facility] Influenza Virus Vaccine Quad IM 3+ YRS Unknown Completed [facility] Pneumococcal Polysaccharide, PPSV23 (PNEUMOVAX) Unknown Completed [facility] Influenza Virus Vaccine Unknown Completed [facility] Influenza Virus Vaccine Quad IM, Preserv and ABX Free 6 MO-64 YRS (FLUCELVAX) Unknown Completed [facility] TDAP Unknown Completed [facility] MMR Unknown Completed [facility] Influenza Virus Vaccine Quad IM 3+ YRS Unknown Completed [facility] Pneumococcal Polysaccharide, PPSV23 (PNEUMOVAX) Unknown Completed [facility] Influenza Virus Vaccine Unknown Completed [facility] Influenza Virus Vaccine Quad IM, Preserv and ABX Free 6 MO-64 YRS (FLUCELVAX) Unknown Completed [facility] TDAP Unknown Completed [facility] MMR Unknown Completed [facility] Influenza Virus Vaccine Quad IM 3+ YRS Unknown Completed [facility] Pneumococcal Polysaccharide, PPSV23 (PNEUMOVAX) Unknown Completed [facility] Influenza Virus Vaccine Unknown Completed [facility] Influenza Virus Vaccine Quad IM, Preserv and ABX Free 6 MO-64 YRS (FLUCELVAX) Unknown Completed [facility] TDAP Unknown Completed [facility] MMR Unknown Completed [facility] Influenza Virus Vaccine Quad IM 3+ YRS Unknown Completed [facility] Pneumococcal Polysaccharide, PPSV23 (PNEUMOVAX) Unknown Completed [facility] Influenza Virus Vaccine Unknown Completed [facility] Influenza Virus Vaccine Quad IM, Preserv and ABX Free 6 MO-64 YRS (FLUCELVAX) Unknown Completed [facility] Flu Injectable MDCK Pres-Free (FLUCELVAX) Unknown Completed [facility] TDAP Unknown Completed [facility] MMR Unknown Completed [facility] Influenza Virus Vaccine Quad IM 3+ YRS Unknown Completed [facility] Pneumococcal Polysaccharide, PPSV23 (PNEUMOVAX) Unknown Completed [facility] Influenza Virus Vaccine Unknown Completed [facility] Influenza Virus Vaccine Quad IM, Preserv and ABX Free 6 MO-64 YRS (FLUCELVAX) Unknown Completed [facility] TDAP Unknown Completed [facility] MMR Unknown Completed [facility] Influenza Virus Vaccine Quad .5 mL IM 6+ MO (FLUZONE/FLULAVAL/F LUARIX) Unknown Completed [facility] Pneumococcal Polysaccharide, PPSV23 (PNEUMOVAX) Unknown Completed [facility] Influenza Virus Vaccine Unknown Completed [facility] Influenza Virus Vaccine Quad IM, Preserv and ABX Free 6 MO-64 YRS (FLUCELVAX) Unknown Completed [facility] Flu Injectable MDCK Pres-Free (FLUCELVAX) Unknown Completed [facility] TDAP Unknown Completed [facility] MMR Unknown Completed [facility] Influenza Virus Vaccine Quad .5 mL IM 6+ MO (FLUZONE/FLULAVAL/F LUARIX) Unknown Completed [facility] Pneumococcal Polysaccharide, PPSV23 (PNEUMOVAX) Unknown Completed [facility] Influenza Virus Vaccine Unknown Completed [facility] Influenza Virus Vaccine Quad IM, Preserv and ABX Free 6 MO-64 YRS (FLUCELVAX) Unknown Completed [facility] Flu Injectable MDCK Pres-Free (FLUCELVAX) Unknown Completed [facility] TDAP Unknown Completed [facility] MMR Unknown Completed [facility] Influenza Virus Vaccine Quad .5 mL IM 6+ MO (FLUZONE/FLULAVAL/F LUARIX) Unknown Completed [facility] Pneumococcal Polysaccharide, PPSV23 (PNEUMOVAX) Unknown Completed [facility] Influenza Virus Vaccine Unknown Completed [facility] Influenza Virus Vaccine Quad IM, Preserv and ABX Free 6 MO-64 YRS (FLUCELVAX) Unknown Completed [facility] Flu Injectable MDCK Pres-Free (FLUCELVAX) Unknown Completed [facility] Vital Signs Vital Name Observation Time Observation Value Comments S ource Systolic blood pressure 2024-06-20 17:31:00 122 mm[Hg] [facility] Diastolic blood pressure 2024-06-20 17:31:00 81 mm[Hg] [facility] Heart rate 2024-06-20 17:31:00 84 /min [facility] Body temperature 2024-06-20 17:31:00 36.78 [place] [facility] Body height 2024-06-20 17:31:00 162.6 cm [facility] Body weight 2024-06-20 17:31:00 73.029 kg [facility] BMI 2024-06-20 17:31:00 27.64 kg/m2 [facility] Systolic blood pressure 2024-05-20 15:19:00 122 mm[Hg] [facility] Diastolic blood pressure 2024-05-20 15:19:00 85 mm[Hg] [facility] Heart rate 2024-05-20 15:19:00 82 /min [facility] Respiratory rate 2024-05-20 15:19:00 18 /min [facility] Body height 2024-05-20 15:19:00 162.6 cm [facility] Body weight 2024-05-20 15:19:00 73.528 kg [facility] BMI 2024-05-20 15:19:00 27.82 kg/m2 [facility] Oxygen saturation in Arterial blood by Pulse oximetry 2024-05-20 15:19:00 99 /min [facility] Systolic blood pressure 2024-05-05 18:16:00 111 mm[Hg] [facility] Diastolic blood pressure 2024-05-05 18:16:00 84 mm[Hg] [facility] Heart rate 2024-05-05 18:16:00 92 /min [facility] Respiratory rate 2024-05-05 18:16:00 18 /min [facility] Body height 2024-05-05 18:16:00 162.6 cm [facility] Body weight 2024-05-05 18:16:00 72.893 kg [facility] BMI 2024-05-05 18:16:00 27.58 kg/m2 [facility] Oxygen saturation in Arterial blood by Pulse oximetry 2024-05-05 18:16:00 99 /min [facility] Systolic blood pressure 2024-04-21 19:07:00 109 mm[Hg] [facility] Diastolic blood pressure 2024-04-21 19:07:00 76 mm[Hg] [facility] Heart rate 2024-04-21 19:07:00 84 /min [facility] Respiratory rate 2024-04-21 19:07:00 18 /min [facility] Body height 2024-04-21 19:07:00 162.5 cm [facility] Body weight 2024-04-21 19:07:00 75.433 kg [facility] BMI 2024-04-21 19:07:00 28.57 kg/m2 [facility] Oxygen saturation in Arterial blood by Pulse oximetry 2024-04-21 19:07:00 98 /min [facility] Systolic blood pressure 2024-04-15 20:16:00 115 mm[Hg] [facility] Diastolic blood pressure 2024-04-15 20:16:00 73 mm[Hg] [facility] Heart rate 2024-04-15 20:16:00 85 /min [facility] Respiratory rate 2024-04-15 20:16:00 18 /min [facility] Body height 2024-04-15 20:16:00 162.6 cm [facility] Body weight 2024-04-15 20:16:00 76.204 kg [facility] BMI 2024-04-15 20:16:00 28.84 kg/m2 [facility] Systolic blood pressure 2024-04-10 16:46:00 106 mm[Hg] [facility] Diastolic blood pressure 2024-04-10 16:46:00 74 mm[Hg] [facility] Heart rate 2024-04-10 16:46:00 82 /min [facility] Body temperature 2024-04-10 16:46:00 35.94 [place] [facility] Respiratory rate 2024-04-10 16:46:00 16 /min [facility] Body weight 2024-04-10 16:46:00 76.204 kg [facility] BMI 2024-04-10 16:46:00 29.29 kg/m2 [facility] Oxygen saturation in Arterial blood by Pulse oximetry 2024-04-10 16:46:00 99 /min [facility] Heart rate 2024-03-24 18:40:00 70 /min [facility] Respiratory rate 2024-03-24 18:40:00 10 /min [facility] Oxygen saturation in Arterial blood by Pulse oximetry 2024-03-24 18:40:00 99 /min [facility] Systolic blood pressure 2024-03-24 18:35:00 94 mm[Hg] [facility] Diastolic blood pressure 2024-03-24 18:35:00 66 mm[Hg] [facility] Body temperature 2024-03-24 17:13:00 36.5 [place] [facility] Body height 2024-03-24 14:35:00 161.3 cm [facility] Body weight 2024-03-24 14:35:00 76.204 kg [facility] BMI 2024-03-24 14:35:00 29.29 kg/m2 [facility] Systolic blood pressure 2024-03-24 14:37:00 114 mm[Hg] [facility] Diastolic blood pressure 2024-03-24 14:37:00 71 mm[Hg] [facility] Heart rate 2024-03-24 14:37:00 78 /min [facility] Body temperature 2024-03-24 14:35:00 36.89 [place] [facility] Respiratory rate 2024-03-24 14:35:00 18 /min [facility] Body height 2024-03-24 14:35:00 161.3 cm [facility] Body weight 2024-03-24 14:35:00 76.204 kg [facility] BMI 2024-03-24 14:35:00 29.29 kg/m2 [facility] Oxygen saturation in Arterial blood by Pulse oximetry 2024-03-24 14:35:00 98 /min [facility] Systolic blood pressure 2024-03-20 19:09:00 103 mm[Hg] [facility] Diastolic blood pressure 2024-03-20 19:09:00 79 mm[Hg] [facility] Heart rate 2024-03-20 19:09:00 82 /min [facility] Oxygen saturation in Arterial blood by Pulse oximetry 2024-03-20 19:09:00 97 /min [facility] Respiratory rate 2024-03-20 18:45:00 15 /min [facility] Body temperature 2024-03-20 17:40:00 36.89 [place] [facility] Body height 2024-03-20 17:40:00 162.6 cm [facility] Body weight 2024-03-20 17:40:00 76.204 kg [facility] BMI 2024-03-20 17:40:00 28.84 kg/m2 [facility] Body weight 2024-02-07 19:45:00 84.369 kg [facility] BMI 2024-02-07 19:45:00 31.93 kg/m2 [facility] Systolic blood pressure 2024-02-06 18:30:00 97 mm[Hg] [facility] Diastolic blood pressure 2024-02-06 18:30:00 66 mm[Hg] [facility] Heart rate 2024-02-06 18:30:00 96 /min [facility] Respiratory rate 2024-02-06 18:30:00 18 /min [facility] Body height 2024-02-06 18:30:00 162.6 cm [facility] Body weight 2024-02-06 18:30:00 84.823 kg [facility] BMI 2024-02-06 18:30:00 32.10 kg/m2 [facility] Systolic blood pressure 2024-02-04 19:24:00 109 mm[Hg] [facility] Diastolic blood pressure 2024-02-04 19:24:00 80 mm[Hg] [facility] Heart rate 2024-02-04 19:24:00 95 /min [facility] Body height 2024-02-04 19:24:00 162.6 cm [facility] Body weight 2024-02-04 19:24:00 84.369 kg [facility] BMI 2024-02-04 19:24:00 31.93 kg/m2 [facility] Oxygen saturation in Arterial blood by Pulse oximetry 2024-02-04 19:24:00 99 /min [facility] Systolic blood pressure 2024-01-23 19:29:00 115 mm[Hg] [facility] Diastolic blood pressure 2024-01-23 19:29:00 82 mm[Hg] [facility] Heart rate 2024-01-23 19:29:00 100 /min [facility] Body temperature 2024-01-23 19:29:00 36.22 [place] [facility] Respiratory rate 2024-01-23 19:29:00 18 /min [facility] Body height 2024-01-23 19:29:00 162.6 cm [facility] Body weight 2024-01-23 19:29:00 86.183 kg [facility] BMI 2024-01-23 19:29:00 32.61 kg/m2 [facility] Oxygen saturation in Arterial blood by Pulse oximetry 2024-01-23 19:29:00 98 /min [facility] Systolic blood pressure 2024-01-15 21:03:00 119 mm[Hg] [facility] Diastolic blood pressure 2024-01-15 21:03:00 84 mm[Hg] [facility] Heart rate 2024-01-15 21:03:00 97 /min [facility] Body temperature 2024-01-15 21:03:00 36.67 [place] [facility] Respiratory rate 2024-01-15 21:03:00 16 /min [facility] Body height 2024-01-15 21:03:00 162.6 cm [facility] Body weight 2024-01-15 21:03:00 90.855 kg [facility] BMI 2024-01-15 21:03:00 34.38 kg/m2 [facility] Oxygen saturation in Arterial blood by Pulse oximetry 2024-01-15 21:03:00 96 /min [facility] Systolic blood pressure 2024-01-15 19:34:00 124 mm[Hg] [facility] Diastolic blood pressure 2024-01-15 19:34:00 84 mm[Hg] [facility] Heart rate 2024-01-15 19:34:00 91 /min [facility] Body height 2024-01-15 19:34:00 162.6 cm [facility] Body weight 2024-01-15 19:34:00 84.823 kg [facility] BMI 2024-01-15 19:34:00 32.10 kg/m2 [facility] Oxygen saturation in Arterial blood by Pulse oximetry 2024-01-15 19:34:00 98 /min [facility] Systolic blood pressure 2023-12-19 19:25:00 121 mm[Hg] [facility] Diastolic blood pressure 2023-12-19 19:25:00 80 mm[Hg] [facility] Heart rate 2023-12-19 19:25:00 81 /min [facility] Body temperature 2023-12-19 19:25:00 36.22 [place] [facility] Respiratory rate 2023-12-19 19:25:00 18 /min [facility] Body height 2023-12-19 19:25:00 162.6 cm [facility] Body weight 2023-12-19 19:25:00 91.173 kg [facility] BMI 2023-12-19 19:25:00 34.50 kg/m2 [facility] Oxygen saturation in Arterial blood by Pulse oximetry 2023-12-19 19:25:00 96 /min [facility] Systolic blood pressure 2023-10-15 20:35:00 114 mm[Hg] [facility] Diastolic blood pressure 2023-10-15 20:35:00 81 mm[Hg] [facility] Heart rate 2023-10-15 20:35:00 77 /min [facility] Body height 2023-10-15 20:35:00 162.6 cm [facility] Body weight 2023-10-15 20:35:00 89.313 kg [facility] BMI 2023-10-15 20:35:00 33.80 kg/m2 [facility] Oxygen saturation in Arterial blood by Pulse oximetry 2023-10-15 20:35:00 97 /min [facility] Systolic blood pressure 2023-09-12 21:15:00 120 mm[Hg] [facility] Diastolic blood pressure 2023-09-12 21:15:00 75 mm[Hg] [facility] Heart rate 2023-09-12 21:15:00 89 /min [facility] Respiratory rate 2023-09-12 21:15:00 16 /min [facility] Oxygen saturation in Arterial blood by Pulse oximetry 2023-09-12 21:15:00 97 /min [facility] Body temperature 2023-09-12 20:24:39 36.94 [place] [facility] Body height 2023-09-12 20:02:00 162.6 cm [facility] Body weight 2023-09-12 20:02:00 95.255 kg [facility] BMI 2023-09-12 20:02:00 36.05 kg/m2 [facility] Systolic blood pressure 2023-09-10 21:59:00 111 mm[Hg] [facility] Diastolic blood pressure 2023-09-10 21:59:00 71 mm[Hg] [facility] Heart rate 2023-09-10 21:59:00 82 /min [facility] Body height 2023-09-10 21:59:00 162.6 cm [facility] Body weight 2023-09-10 21:59:00 95.255 kg [facility] BMI 2023-09-10 21:59:00 36.05 kg/m2 [facility] Systolic blood pressure 2023-06-25 19:40:00 114 mm[Hg] [facility] Diastolic blood pressure 2023-06-25 19:40:00 78 mm[Hg] [facility] Heart rate 2023-06-25 19:40:00 82 /min [facility] Respiratory rate 2023-06-25 19:40:00 12 /min [facility] Body height 2023-06-25 19:40:00 162.6 cm [facility] Body weight 2023-06-25 19:40:00 95.255 kg [facility] BMI 2023-06-25 19:40:00 36.05 kg/m2 [facility] Oxygen saturation in Arterial blood by Pulse oximetry 2023-06-25 19:40:00 97 /min [facility] Systolic blood pressure 2023-06-11 18:36:00 130 mm[Hg] [facility] Diastolic blood pressure 2023-06-11 18:36:00 86 mm[Hg] [facility] Heart rate 2023-06-11 18:36:00 77 /min [facility] Body height 2023-06-11 18:36:00 162.6 cm [facility] Body weight 2023-06-11 18:36:00 92.352 kg [facility] BMI 2023-06-11 18:36:00 34.95 kg/m2 [facility] Oxygen saturation in Arterial blood by Pulse oximetry 2023-06-11 18:36:00 97 /min [facility] Systolic blood pressure 2023-06-06 18:24:00 125 mm[Hg] [facility] Diastolic blood pressure 2023-06-06 18:24:00 86 mm[Hg] [facility] Heart rate 2023-06-06 18:24:00 79 /min [facility] Respiratory rate 2023-06-06 18:24:00 18 /min [facility] Body height 2023-06-06 18:24:00 162.6 cm [facility] Body weight 2023-06-06 18:24:00 91.173 kg [facility] BMI 2023-06-06 18:24:00 34.50 kg/m2 [facility] Systolic blood pressure 2023-05-11 19:10:00 101 mm[Hg] [facility] Diastolic blood pressure 2023-05-11 19:10:00 57 mm[Hg] [facility] Heart rate 2023-05-11 19:10:00 84 /min [facility] Respiratory rate 2023-05-11 19:10:00 16 /min [facility] Oxygen saturation in Arterial blood by Pulse oximetry 2023-05-11 19:10:00 100 /min [facility] Body height 2023-05-11 18:07:00 162.6 cm [facility] Body weight 2023-05-11 18:07:00 90.719 kg [facility] BMI 2023-05-11 18:07:00 34.33 kg/m2 [facility] Systolic blood pressure 2023-05-02 18:07:00 121 mm[Hg] [facility] Diastolic blood pressure 2023-05-02 18:07:00 84 mm[Hg] [facility] Heart rate 2023-05-02 18:07:00 93 /min [facility] Body temperature 2023-05-02 18:07:00 37.11 [place] [facility] Respiratory rate 2023-05-02 18:07:00 16 /min [facility] Body height 2023-05-02 18:07:00 162.6 cm [facility] Body weight 2023-05-02 18:07:00 92.579 kg [facility] BMI 2023-05-02 18:07:00 35.03 kg/m2 [facility] Oxygen saturation in Arterial blood by Pulse oximetry 2023-05-02 18:07:00 97 /min [facility] Systolic blood pressure 2023-04-09 14:50:00 113 mm[Hg] [facility] Diastolic blood pressure 2023-04-09 14:50:00 88 mm[Hg] [facility] Heart rate 2023-04-09 14:50:00 77 /min [facility] Respiratory rate 2023-04-09 14:50:00 11 /min [facility] Oxygen saturation in Arterial blood by Pulse oximetry 2023-04-09 14:50:00 98 /min [facility] Body temperature 2023-04-09 14:24:00 36.17 [place] [facility] Body height 2023-04-09 12:41:00 162.6 cm [facility] Body weight 2023-04-09 12:41:00 91.627 kg [facility] BMI 2023-04-09 12:41:00 34.67 kg/m2 [facility] Systolic blood pressure 2023-04-09 12:41:00 136 mm[Hg] [facility] Diastolic blood pressure 2023-04-09 12:41:00 93 mm[Hg] [facility] Heart rate 2023-04-09 12:41:00 79 /min [facility] Body temperature 2023-04-09 12:41:00 36.17 [place] [facility] Respiratory rate 2023-04-09 12:41:00 16 /min [facility] Body height 2023-04-09 12:41:00 162.6 cm [facility] Body weight 2023-04-09 12:41:00 91.627 kg [facility] BMI 2023-04-09 12:41:00 34.67 kg/m2 [facility] Oxygen saturation in Arterial blood by Pulse oximetry 2023-04-09 12:41:00 99 /min [facility] Systolic blood pressure 2023-03-29 19:30:00 115 mm[Hg] [facility] Diastolic blood pressure 2023-03-29 19:30:00 78 mm[Hg] [facility] Heart rate 2023-03-29 19:30:00 85 /min [facility] Body temperature 2023-03-29 19:26:00 36.61 [place] [facility] Respiratory rate 2023-03-29 19:26:00 18 /min [facility] Body height 2023-03-29 19:26:00 162.6 cm [facility] Body weight 2023-03-29 19:26:00 93.577 kg [facility] BMI 2023-03-29 19:26:00 35.41 kg/m2 [facility] Oxygen saturation in Arterial blood by Pulse oximetry 2023-03-29 19:26:00 99 /min [facility] Systolic blood pressure 2023-03-13 19:14:00 118 mm[Hg] [facility] Diastolic blood pressure 2023-03-13 19:14:00 81 mm[Hg] [facility] Heart rate 2023-03-13 19:14:00 74 /min [facility] Body height 2023-03-13 19:14:00 162.6 cm [facility] Body weight 2023-03-13 19:14:00 93.441 kg [facility] BMI 2023-03-13 19:14:00 35.36 kg/m2 [facility] Oxygen saturation in Arterial blood by Pulse oximetry 2023-03-13 19:14:00 99 /min [facility] Systolic blood pressure 2023-03-06 20:09:00 119 mm[Hg] [facility] Diastolic blood pressure 2023-03-06 20:09:00 85 mm[Hg] [facility] Heart rate 2023-03-06 20:09:00 79 /min [facility] Respiratory rate 2023-03-06 20:09:00 16 /min [facility] Body height 2023-03-06 20:09:00 162.6 cm [facility] Body weight 2023-03-06 20:09:00 93.804 kg [facility] BMI 2023-03-06 20:09:00 35.50 kg/m2 [facility] Oxygen saturation in Arterial blood by Pulse oximetry 2023-03-06 20:09:00 98 /min [facility] Systolic blood pressure 2023-02-19 19:12:00 121 mm[Hg] [facility] Diastolic blood pressure 2023-02-19 19:12:00 84 mm[Hg] [facility] Heart rate 2023-02-19 19:12:00 83 /min [facility] Body height 2023-02-19 19:12:00 162.6 cm [facility] Body weight 2023-02-19 19:12:00 93.35 kg [facility] BMI 2023-02-19 19:12:00 35.33 kg/m2 [facility] Systolic blood pressure 2023-01-30 19:51:00 118 mm[Hg] [facility] Diastolic blood pressure 2023-01-30 19:51:00 80 mm[Hg] [facility] Heart rate 2023-01-30 19:51:00 89 /min [facility] Respiratory rate 2023-01-30 19:51:00 18 /min [facility] Body height 2023-01-30 19:51:00 162.6 cm [facility] Body weight 2023-01-30 19:51:00 93.577 kg [facility] BMI 2023-01-30 19:51:00 35.41 kg/m2 [facility] Oxygen saturation in Arterial blood by Pulse oximetry 2023-01-30 19:51:00 97 /min [facility] Systolic blood pressure 2023-01-19 19:30:00 109 mm[Hg] [facility] Diastolic blood pressure 2023-01-19 19:30:00 77 mm[Hg] [facility] Heart rate 2023-01-19 19:30:00 92 /min [facility] Body temperature 2023-01-19 19:30:00 36.56 [place] [facility] Respiratory rate 2023-01-19 19:30:00 18 /min [facility] Body height 2023-01-19 19:30:00 162.6 cm [facility] Body weight 2023-01-19 19:30:00 93.668 kg [facility] BMI 2023-01-19 19:30:00 35.45 kg/m2 [facility] Oxygen saturation in Arterial blood by Pulse oximetry 2023-01-19 19:30:00 98 /min [facility] Systolic blood pressure 2023-01-09 14:59:00 112 mm[Hg] [facility] Diastolic blood pressure 2023-01-09 14:59:00 80 mm[Hg] [facility] Heart rate 2023-01-09 14:59:00 78 /min [facility] Respiratory rate 2023-01-09 14:59:00 16 /min [facility] Body height 2023-01-09 14:59:00 162.6 cm [facility] Body weight 2023-01-09 14:59:00 94.348 kg [facility] BMI 2023-01-09 14:59:00 35.70 kg/m2 [facility] Oxygen saturation in Arterial blood by Pulse oximetry 2023-01-09 14:59:00 98 /min [facility] Systolic blood pressure 2023-01-01 18:36:00 131 mm[Hg] Patient just had a [employer] drink [facility] Diastolic blood pressure 2023-01-01 18:36:00 92 mm[Hg] Patient just had a [employer] drink [facility] Heart rate 2023-01-01 18:36:00 86 /min [facility] Body temperature 2023-01-01 18:36:00 36.44 [place] [facility] Body height 2023-01-01 18:36:00 162.6 cm [facility] Body weight 2023-01-01 18:36:00 94.348 kg [facility] BMI 2023-01-01 18:36:00 35.70 kg/m2 [facility] Oxygen saturation in Arterial blood by Pulse oximetry 2023-01-01 18:36:00 96 /min [facility] Systolic blood pressure 2023-01-01 15:13:00 112 mm[Hg] [facility] Diastolic blood pressure 2023-01-01 15:13:00 80 mm[Hg] [facility] Heart rate 2023-01-01 15:13:00 76 /min [facility] Respiratory rate 2023-01-01 15:13:00 18 /min [facility] Body height 2023-01-01 15:13:00 162.6 cm [facility] Body weight 2023-01-01 15:13:00 94.348 kg [facility] BMI 2023-01-01 15:13:00 35.70 kg/m2 [facility] Systolic blood pressure 2022-12-11 16:20:00 100 mm[Hg] [facility] Diastolic blood pressure 2022-12-11 16:20:00 79 mm[Hg] [facility] Heart rate 2022-12-11 16:20:00 79 /min [facility] Respiratory rate 2022-12-11 16:20:00 16 /min [facility] Body temperature 2022-12-11 14:44:00 36.67 [place] [facility] Body height 2022-12-11 14:44:00 162.6 cm [facility] Body weight 2022-12-11 14:44:00 93.441 kg [facility] BMI 2022-12-11 14:44:00 35.36 kg/m2 [facility] Oxygen saturation in Arterial blood by Pulse oximetry 2022-12-11 14:44:00 100 /min [facility] Systolic blood pressure 2022-11-29 16:18:00 115 mm[Hg] [facility] Diastolic blood pressure 2022-11-29 16:18:00 80 mm[Hg] [facility] Heart rate 2022-11-29 16:18:00 77 /min [facility] Body temperature 2022-11-29 16:18:00 36.67 [place] [facility] Respiratory rate 2022-11-29 16:18:00 18 /min [facility] Body height 2022-11-29 16:18:00 162.6 cm [facility] Body weight 2022-11-29 16:18:00 95.119 kg [facility] BMI 2022-11-29 16:18:00 35.99 kg/m2 [facility] Oxygen saturation in Arterial blood by Pulse oximetry 2022-11-29 16:18:00 98 /min [facility] Systolic blood pressure 2022-10-25 19:08:00 134 mm[Hg] [facility] Diastolic blood pressure 2022-10-25 19:08:00 84 mm[Hg] [facility] Heart rate 2022-10-25 19:08:00 79 /min [facility] Body temperature 2022-10-25 19:08:00 36.33 [place] [facility] Respiratory rate 2022-10-25 19:08:00 16 /min [facility] Body height 2022-10-25 19:08:00 162.6 cm [facility] Body weight 2022-10-25 19:08:00 99.02 kg [facility] BMI 2022-10-25 19:08:00 37.47 kg/m2 [facility] Oxygen saturation in Arterial blood by Pulse oximetry 2022-10-25 19:08:00 99 /min [facility] Systolic blood pressure 2022-10-24 14:40:00 116 mm[Hg] [facility] Diastolic blood pressure 2022-10-24 14:40:00 82 mm[Hg] [facility] Heart rate 2022-10-24 14:40:00 73 /min [facility] Body height 2022-10-24 14:40:00 162.6 cm [facility] Body weight 2022-10-24 14:40:00 99.791 kg [facility] BMI 2022-10-24 14:40:00 37.76 kg/m2 [facility] Oxygen saturation in Arterial blood by Pulse oximetry 2022-10-24 14:40:00 98 /min [facility] Systolic blood pressure 2022-10-18 20:33:00 126 mm[Hg] [facility] Diastolic blood pressure 2022-10-18 20:33:00 85 mm[Hg] [facility] Heart rate 2022-10-18 20:33:00 83 /min [facility] Body height 2022-10-18 20:33:00 162.6 cm [facility] Body weight 2022-10-18 20:33:00 98.385 kg [facility] BMI 2022-10-18 20:33:00 37.23 kg/m2 [facility] Oxygen saturation in Arterial blood by Pulse oximetry 2022-10-18 20:33:00 99 /min [facility] Systolic blood pressure 2022-09-21 17:31:00 125 mm[Hg] [facility] Diastolic blood pressure 2022-09-21 17:31:00 81 mm[Hg] [facility] Heart rate 2022-09-21 17:31:00 77 /min [facility] Body temperature 2022-09-21 17:31:00 37.17 [place] [facility] Body height 2022-09-21 17:31:00 162.6 cm [facility] Body weight 2022-09-21 17:31:00 98.431 kg [facility] BMI 2022-09-21 17:31:00 37.25 kg/m2 [facility] Oxygen saturation in Arterial blood by Pulse oximetry 2022-09-21 17:31:00 97 /min [facility] Systolic blood pressure 2022-09-15 17:50:00 96 mm[Hg] [facility] Diastolic blood pressure 2022-09-15 17:50:00 67 mm[Hg] [facility] Heart rate 2022-09-15 17:50:00 81 /min [facility] Respiratory rate 2022-09-15 17:50:00 18 /min [facility] Body temperature 2022-09-15 16:40:00 37 [place] [facility] Body height 2022-09-15 16:40:00 162.6 cm [facility] Body weight 2022-09-15 16:40:00 102.513 kg [facility] BMI 2022-09-15 16:40:00 38.79 kg/m2 [facility] Oxygen saturation in Arterial blood by Pulse oximetry 2022-09-15 16:40:00 100 /min [facility] Systolic blood pressure 2022-09-13 15:34:00 114 mm[Hg] [facility] Diastolic blood pressure 2022-09-13 15:34:00 79 mm[Hg] [facility] Heart rate 2022-09-13 15:34:00 78 /min [facility] Body weight 2022-09-13 15:34:00 102.83 kg [facility] BMI 2022-09-13 15:34:00 38.91 kg/m2 [facility] Oxygen saturation in Arterial blood by Pulse oximetry 2022-09-13 15:34:00 98 /min [facility] Systolic blood pressure 2022-09-12 15:38:00 123 mm[Hg] [facility] Diastolic blood pressure 2022-09-12 15:38:00 71 mm[Hg] [facility] Heart rate 2022-09-12 15:38:00 70 /min [facility] Body temperature 2022-09-12 15:38:00 36.94 [place] [facility] Respiratory rate 2022-09-12 15:38:00 16 /min [facility] Body height 2022-09-12 15:38:00 162.6 cm [facility] Body weight 2022-09-12 15:38:00 102.059 kg [facility] BMI 2022-09-12 15:38:00 38.62 kg/m2 [facility] Oxygen saturation in Arterial blood by Pulse oximetry 2022-09-12 15:38:00 98 /min [facility] Systolic blood pressure 2022-08-21 15:34:00 123 mm[Hg] [facility] Diastolic blood pressure 2022-08-21 15:34:00 85 mm[Hg] [facility] Heart rate 2022-08-21 15:34:00 70 /min [facility] Body height 2022-08-21 15:34:00 162.6 cm [facility] Body weight 2022-08-21 15:34:00 100.699 kg [facility] BMI 2022-08-21 15:34:00 38.11 kg/m2 [facility] Systolic blood pressure 2022-08-16 19:15:00 135 mm[Hg] [facility] Diastolic blood pressure 2022-08-16 19:15:00 96 mm[Hg] [facility] Heart rate 2022-08-16 19:15:00 74 /min [facility] Respiratory rate 2022-08-16 19:15:00 20 /min [facility] Body height 2022-08-16 19:15:00 162.6 cm [facility] Body weight 2022-08-16 19:15:00 99.791 kg [facility] BMI 2022-08-16 19:15:00 37.76 kg/m2 [facility] Oxygen saturation in Arterial blood by Pulse oximetry 2022-08-16 19:15:00 98 /min [facility] Systolic blood pressure 2022-08-15 17:30:00 114 mm[Hg] [facility] Diastolic blood pressure 2022-08-15 17:30:00 79 mm[Hg] [facility] Heart rate 2022-08-15 17:30:00 81 /min [facility] Body temperature 2022-08-15 17:30:00 37 [place] [facility] Respiratory rate 2022-08-15 17:30:00 18 /min [facility] Body height 2022-08-15 17:30:00 162.6 cm [facility] Body weight 2022-08-15 17:30:00 99.791 kg [facility] BMI 2022-08-15 17:30:00 37.76 kg/m2 [facility] Systolic blood pressure 2022-08-02 19:33:00 132 mm[Hg] [facility] Diastolic blood pressure 2022-08-02 19:33:00 90 mm[Hg] [facility] Heart rate 2022-08-02 19:33:00 73 /min [facility] Body temperature 2022-08-02 19:33:00 36.61 [place] [facility] Respiratory rate 2022-08-02 19:33:00 18 /min [facility] Body height 2022-08-02 19:33:00 162.6 cm [facility] Body weight 2022-08-02 19:33:00 97.977 kg [facility] BMI 2022-08-02 19:33:00 37.08 kg/m2 [facility] Systolic blood pressure 2022-07-24 15:18:00 130 mm[Hg] [facility] Diastolic blood pressure 2022-07-24 15:18:00 86 mm[Hg] [facility] Heart rate 2022-07-24 15:18:00 73 /min [facility] Body height 2022-07-24 15:18:00 162.6 cm [facility] Body weight 2022-07-24 15:18:00 100.245 kg [facility] BMI 2022-07-24 15:18:00 37.93 kg/m2 [facility] Oxygen saturation in Arterial blood by Pulse oximetry 2022-07-24 15:18:00 98 /min [facility] Systolic blood pressure 2022-07-18 16:04:00 128 mm[Hg] [facility] Diastolic blood pressure 2022-07-18 16:04:00 86 mm[Hg] [facility] Heart rate 2022-07-18 16:04:00 83 /min [facility] Body height 2022-07-18 16:04:00 162.6 cm [facility] Body weight 2022-07-18 16:04:00 97.523 kg [facility] BMI 2022-07-18 16:04:00 36.90 kg/m2 [facility] Oxygen saturation in Arterial blood by Pulse oximetry 2022-07-18 16:04:00 100 /min [facility] Systolic blood pressure 2022-07-17 17:07:00 122 mm[Hg] [facility] Diastolic blood pressure 2022-07-17 17:07:00 90 mm[Hg] [facility] Heart rate 2022-07-17 17:07:00 74 /min [facility] Body temperature 2022-07-17 17:07:00 36.72 [place] [facility] Respiratory rate 2022-07-17 17:07:00 16 /min [facility] Body height 2022-07-17 17:07:00 162.6 cm [facility] Body weight 2022-07-17 17:07:00 97.569 kg [facility] BMI 2022-07-17 17:07:00 36.92 kg/m2 [facility] Oxygen saturation in Arterial blood by Pulse oximetry 2022-07-17 17:07:00 98 /min [facility] Systolic blood pressure 2022-06-30 21:20:00 101 mm[Hg] [facility] Diastolic blood pressure 2022-06-30 21:20:00 70 mm[Hg] [facility] Heart rate 2022-06-30 21:20:00 76 /min [facility] Respiratory rate 2022-06-30 21:10:00 18 /min [facility] Body temperature 2022-06-30 20:27:00 36.67 [place] [facility] Body height 2022-06-30 20:27:00 162.6 cm [facility] Body weight 2022-06-30 20:27:00 90.719 kg [facility] BMI 2022-06-30 20:27:00 34.33 kg/m2 [facility] Oxygen saturation in Arterial blood by Pulse oximetry 2022-06-30 20:27:00 95 /min [facility] Systolic blood pressure 2022-06-20 16:23:00 117 mm[Hg] [facility] Diastolic blood pressure 2022-06-20 16:23:00 77 mm[Hg] [facility] Heart rate 2022-06-20 16:23:00 87 /min [facility] Body temperature 2022-06-20 16:23:00 37 [place] [facility] Respiratory rate 2022-06-20 16:23:00 18 /min [facility] Body height 2022-06-20 16:23:00 162.6 cm [facility] Body weight 2022-06-20 16:23:00 95.709 kg [facility] BMI 2022-06-20 16:23:00 36.22 kg/m2 [facility] Body weight 2022-06-09 15:45:00 91.173 kg [facility] BMI 2022-06-09 15:45:00 34.50 kg/m2 [facility] Systolic blood pressure 2022-05-16 15:31:00 133 mm[Hg] [facility] Diastolic blood pressure 2022-05-16 15:31:00 87 mm[Hg] [facility] Heart rate 2022-05-16 15:31:00 87 /min [facility] Respiratory rate 2022-05-16 15:31:00 12 /min [facility] Body height 2022-05-16 15:31:00 162.6 cm [facility] Body weight 2022-05-16 15:31:00 91.173 kg [facility] BMI 2022-05-16 15:31:00 34.50 kg/m2 [facility] Oxygen saturation in Arterial blood by Pulse oximetry 2022-05-16 15:31:00 99 /min [facility] Procedures Procedure Date / Time Performed Performing Clinician Source POCT HEMOGLOBIN A1C TEST 2024-05-05 18:27:00 Marie Garzon [facility] FLU VACC ([id number]), 6 MO-6 4 YRS, .5ML, IM, TIV (FLUCELVAX) 2024-04-21 21:31:52 Doctor Unassigned, [place] [facility] US PELVIS COMPLETE WITH TRANSVAGINAL 2024-04-21 21:09:55 Carmen Garcia [facility] SURGICAL PATHOLOGY EXAM 2024-03-24 17:00:00 Azalia Michel [facility] [id number] - [place] ANRCT XM SURG REQ ANES GENERAL SPI/EDRL DX 2024-03-24 16:15:00 [place] [facility] [id number] - [place] BX ANORECTAL WALL ANAL APPROACH 2024-03-24 16:15:00 Maril[place] [facility] [id number] - [place] ANOSCOPY W/BX SINGLE/MULTIPLE 2024-03-24 16:15:00 Mar[place] [facility] FISSURECTOMY 2024-03-24 16:15:00 Marilu [facility] POCT GLUCOSE (AUTOMATED) 2024-03-24 14:47:00 Marilu [facility] POCT GLUCOSE (AUTOMATED) 2024-03-24 14:47:00 Marilu [facility] POCT TEST 2024-03-24 14:30:00 Thalia [facility] POCT TEST 2024-03-24 14:30:00 Thalia Ferreira [facility] [place] TIME OR (NON-REPORTABLE) 2024-03-20 18:54:00 Curtis Morley [facility] POCT GLUCOSE (AUTOMATED) 2024-03-20 18:00:00 Curtis Morley [facility] POCT TEST 2024-03-20 17:40:00 Curtis Morley [facility] POCT HEMOGLOBIN A1C TEST 2024-02-04 00:00:00 Marie Garzon [facility] POCT URINALYSIS W/O SPECIFIC GRAVITY 2023-12-19 19:30:00 Abiel Alfaro [facility] POCT TEST 2023-12-19 19:16:00 Abiel Alfaro [facility] POCT HEMOGLOBIN A1C TEST 2023-10-15 20:36:00 Marie Garzon [facility] [place] TIME OR (NON-REPORTABLE) 2023-09-12 21:03:57 Curtis Morley Scooter [facility] POCT GLUCOSE (AUTOMATED) 2023-09-12 20:21:00 Curtis Morley Scooter [facility] POCT TEST 2023-09-12 20:03:00 Curtis Morley Scooter [facility] CONSENT/REFUSAL FOR DIAGNOSI S AND TREATMENT 2023-09-12 19:54:45 Doctor Unassigned, [place] [facility] ANTIPHOSPHOLIPID ANTIBODY EVALUATION-SST 2023-09-10 22:21:00 Carmen Garcia [facility] ANTIPHOSPHOLIPID ANTIBODY TE STS AND EVALUATION 2023-09-10 22:21:00 Brianna Garciasol [facility] ANTIPHOSPHOLIPID ANTIBODY EVALUATION-LT BLUE 2023-09-10 22:21:00 Brianna Garciasol [facility] CONSENT FOR CONTRACEPTION 2023-09-10 06:01:00 Doctor Unassigned, [place] [facility] FLU VACC ([id number]), 6 MO-6 4 YRS, .5ML, IM, QUAD (FLUCELVAX) 2023-06-06 18:56:21 Taylor Cortez [facility] PNEUMOCOCCAL VACCINE, 23-RUTHIE ENT (PNEUMOVAX) 2023-06-06 18:56:20 Taylor Cortez [facility] [place] TIME OR (NON-REPORTABLE) 2023-05-11 19:01:23 Curtis Morley [facility] POCT GLUCOSE (AUTOMATED) 2023-05-11 18:11:00 Curtis Morley [facility] RPR (DX) W/REFL TITER AND$CONFIRMATORY TESTING-Q 2023-05-02 18:53:00 Ez Palacio [facility] POCT TEST 2023-05-02 00:00:00 Ez Palacio [facility] SURGICAL PATHOLOGY EXAM 2023-04-09 14:05:00 Norbert Gay [facility] ESOPHAGOGASTRODUODENOSCOPY 2023-04-09 13:44:00 Norbert Gay [facility] EGD (ENDO) 2023-04-09 13:39:47 Taylor Cortez [facility] EGD (ENDO) 2023-04-09 13:39:47 Taylor Cortez [facility] POCT GLUCOSE (AUTOMATED) 2023-04-09 13:03:00 Norbert Gay [facility] POCT GLUCOSE (AUTOMATED) 2023-04-09 13:03:00 Norbert Gay [facility] ASSIGNMENT OF BENEFITS 2023-04-09 12:30:17 Doctor Unassigned, [place] [facility] POCT TEST 2023-04-09 00:00:00 Tacos Roman [facility] POCT TEST 2023-04-09 00:00:00 Abel Tacos [facility] DME/SUPPLY JUSTIFICATION 2023-03-19 05:01:00 Doctor Unassigned, [place] [facility] PATIENT QUESTIONNAIRE 2023-02-18 05:01:00 Doctor Unassigned, [place] [facility] DME/SUPPLY JUSTIFICATION 2023-01-30 05:01:00 Doctor Unassigned, [place] [facility] COMP. METABOLIC PANEL ([id number]) 2023-01-09 15:40:00 Harjinder Meyer [facility] SEDIMENTATION RATE 2023-01-09 15:40:00 Harjinder Meyer [facility] CBC WITH DIFF 2023-01-09 15:40:00 Harjinder Meyer Cindy [facility] VITAMIN D, 25-OH 2023-01-09 15:40:00 Harjinder Meyer [facility] ANTICARDIOLIPIN ANTIBODIES 2023-01-01 15:54:00 Ez Palacio [facility] ANTI-B2 GLYCOPROTEIN I AB 2023-01-01 15:54:00 Ez Palacio [facility] DISCLOSURE AND CONSENT, MEDI MAYTE AND SURGICAL PROCEDURES 2023-01-01 05:01:00 Doctor Unassigned, [place] [facility] [place] TIME OR (NON-REPORTABLE) 2022-12-11 15:57:25 Curtis Morley [facility] POCT GLUCOSE (AUTOMATED) 2022-12-11 15:06:00 Curtis Morley [facility] POCT TEST 2022-12-11 14:45:00 Curtis Morley [facility] POCT SARS-COV-2 ANTIGEN (BIN AX NOW) 2022-11-29 17:25:00 Taylor Cortez [facility] POCT MOLECULAR STREP 2022-11-29 17:07:00 Taylor Cortez [facility] EMG/NCV 2022-10-26 05:01:00 Skyler Potter [facility] AUTHORIZATION TO RELEASE PHI TO [facility] 2022-10-18 06:01:00 Doctor Unassigned, [place] [facility] [place] TIME OR (NON-REPORTABLE) 2022-09-15 17:38:14 Curtis Morley Scooter [facility] POCT GLUCOSE (AUTOMATED) 2022-09-15 16:38:00 Curtis Morley [facility] POCT TEST 2022-09-15 16:30:00 Curtis Morley [facility] CONSENT/REFUSAL FOR DIAGNOSI S AND TREATMENT 2022-09-12 15:19:35 Doctor Unassigned, [place] [facility] MISCELLANEOUS SEND OUT TEST 2022-08-21 16:05:00 [facility]; SPECIAL COAGULATION EVALUATION 2022-08-21 16:05:00 Bruce [facility] ANTIPHOSPHOLIPID ANTIBODY TE STS AND EVALUATION 2022-08-21 16:05:00 Bruce [facility] ANTIPHOSPHOLIPID ANTIBODY EVALUATION-LT BLUE 2022-08-21 16:05:00 Bruce [facility] ANTICARDIOLIPIN ANTIBODIES 2022-08-21 16:05:00 Bruce [facility] ANTI-B2 GLYCOPROTEIN I AB 2022-08-21 16:05:00 Bruce [facility] ANTIPHOSPHOLIPID ANTIBODY EVALUATION-SST 2022-08-21 16:05:00 Bruce [facility] MR LUMBAR SPINE WO CONTRAST 2022-08-16 20:31:57 Skyler Potter [facility] US PELVIS COMPLETE WITH TRANSVAGINAL 2022-07-26 15:39:56 Bruce [facility] POCT TEST 2022-07-17 00:00:00 Bruce [facility] [place] TIME OR (NON-REPORTABLE) 2022-06-30 21:00:00 Curtis Morley [facility] POCT TEST 2022-06-30 20:15:00 Curtis Morley [facility] POCT TEST 2022-06-20 00:00:00 Argentina Mcdonald [facility] DISCLOSURE AND CONSENT, MEDI MAYTE AND SURGICAL PROCEDURES 2022-06-16 05:01:00 Doctor Unassigned, [place] [facility] Encounters Start Date/Time End Date/Time Encounter Type Admission Type Attending [facility] Care Facility Care Department Encounter ID Source 2024-01-25 11:33:33 Outpatient AZALIA ORELLANA [facility] [id number] [facility] 2021-11-08 15:18:20 Outpatient AZALIA ORELLANA [facility] [id number] [facility] 2021-06-13 16:13:46 Emergency [facility] [id number] [facility] 2021-06-12 19:13:39 Outpatient AZALIA MICHEL [facility] [id number] [facility] 2021-06-12 02:02:49 Outpatient CURTIS MORLEY [facility] [id number] [facility] 2021-06-10 22:07:19 Outpatient NORBERT MARSH GABRIEL [facility] GIDemetri [id number] [facility] 2024-09-15 14:30:00 2024-09-15 14:30:00 Outpatient CURTIS HARRISON [facility] [id number] [facility] 2024-08-04 13:30:00 2024-08-04 13:30:00 Outpatient MARIE JULES [facility] [id number] [facility] 2024-07-17 14:00:00 2024-07-17 14:00:00 Outpatient AZALIA ORELLANA PAMELA [facility] [id number] [facility] 2024-07-02 00:00:00 2024-07-02 16:37:58 Telephone [facility] 1..840.114 350.1.13.10 4.2.7.2.686 [id number] [facility] 2024-06-25 13:00:00 2024-06-25 13:45:54 Outpatient CURTIS HARRISON [facility] [id number] [facility] 2024-06-22 00:00:00 2024-06-24 13:06:15 Adelaida Davila [facility] 1..840.114 350.1.13.10 4.2.7.2.686 [id number] [facility] 2024-06-20 00:00:00 2024-06-23 10:29:41 Telephone Curtis Morley [facility] 1..840.114 350.1.13.10 4.2.7.2.686 [id number] [facility] 2024-06-20 00:00:00 2024-06-23 09:49:31 [facility] 1.2.840.114 350.1.13.10 4.2.7.2.686 [id number] [id number] [facility] 2024-06-20 11:30:00 2024-06-20 11:55:28 Outpatient R SOPHIA RAMIREZ [facility] [id number] [facility] 2024-06-20 11:30:00 2024-06-20 11:55:28 [facility] 1.2.840.114 350.1.13.10 4.2.7.2.686 [id number] [facility] 2024-06-19 14:00:00 2024-06-19 14:00:00 Outpatient R COOK, [facility] [id number] [facility] 2024-06-17 00:00:00 2024-06-17 11:28:52 Telephone Curtis Morley [facility] 1.284.114 350.1.13.10 4.2.7.2.686 [id number] [facility] 2024-06-16 09:40:00 2024-06-16 09:40:00 Outpatient ADELAIDA [facility] [id number] [facility] 2024-05-05 00:00:00 2024-06-07 18:23:25 Patient Secure Msg Curtis Morley [facility] 1.840.114 350.1.13.10 4.2.7.2.686 [id number] [facility] 2024-05-15 00:00:00 2024-05-21 09:32:30 Telephone Skyler Potter [facility] 1..840.114 350.1.13.10 4.2.7.2.686 [id number] [facility] 2024-05-20 00:00:00 2024-05-21 07:24:40 Refill Matheus [facility] 1.2.840.114 350.1.13.10 4.2.7.2.686 [id number] [facility] 2024-05-20 10:00:00 2024-05-20 10:52:02 Outpatient BIA TURPIN [facility] [id number] [facility] 2024-05-20 10:00:00 2024-05-20 10:52:02 Office Visit Bia Chamorro [facility] 1.2840.114 350.1.13.10 4.2.7.2.686 [id number] [facility] 2024-05-19 13:30:00 2024-05-19 13:30:00 Outpatient R BIA CHAMORRO [facility] [id number] [facility] 2024-04-05 00:00:00 2024-05-10 18:25:19 Patient Secure Azalia Sepulveda [facility] PROFESS[facility] NAL BUILDING 1.2.840.114 350.1.13.10 4.2.7.2.686 [id number] [facility] 2024-05-05 13:30:00 2024-05-05 14:02:00 Outpatient R MARIE GARZON [facility] [id number] [facility] 2024-05-05 13:30:00 2024-05-05 14:02:00 Office Visit Marie Garzon [facility] 1..840.114 350.1.13.10 4.2.7.2.686 [id number] 220 [id number] [facility] 2024-04-30 00:00:00 2024-04-30 16:13:45 Letter (Out) [facility] 1.2.840.114 350.1.13.10 4.2.7.2.686 [id number] [facility] 2024-04-21 15:11:30 2024-04-21 23:59:00 Outpatient R HERNANDEZ-HYACINTH S, CARMEN HERNANDEZ-HYACINTH S, CARMEN [facility] [id number] [facility] 2024-04-21 15:00:00 2024-04-21 23:59:00 Hospital Encounter Hernandez-Hyacinth s, Carmen [facility] 1.2.840.114 350.1.13.10 4.2.7.2.686 [id number] [facility] 2024-04-21 16:10:00 2024-04-21 16:30:00 Imm/Inj Visit Nurse, Raj bellamy, Carmen Nurse, Raj Deng [facility] 1.2.840.114 350.1.13.10 4.2.7.2.686 [id number] 044 [id number] [facility] 2024-04-21 14:20:00 2024-04-21 14:51:49 Office Visit Adelaida [facility] 1.2.840.114 350.1.13.10 4.2.7.2.686 [id number] 044 [id number] [facility] 2024-04-18 00:00:00 2024-04-18 11:09:17 Telephone Brianna Triplettsol [facility] BUILD[facility] 1.2.840.114 350.1.13.10 4.2.7.2.686 [id number] [facility] 2024-04-18 00:00:00 2024-04-18 09:28:46 Case Management Carmen Triplett [facility] BU[facility] 1.2.840.114 350.1.13.10 4.2.7.2.686 [id number] [facility] 2024-04-16 00:00:00 2024-04-16 11:38:28 Marie Zabala [facility] 1.2.840.114 350.1.13.10 4.2.7.2.686 [id number] 220 [id number] [facility] 2024-04-15 15:00:00 2024-04-15 15:29:22 Outpatient R CARMEN TRIPLETT MARISOL [facility] [id number] [facility] 2024-04-15 15:00:00 2024-04-15 15:29:22 Office Visit Juan Manuel charlotte Carmen [facility] BUILDING 1.2.840.114 350.1.13.10 4.2.7.2.686 [id number] [facility] 2024-03-11 00:00:00 2024-04-12 18:20:07 Patient Secure Msg Doctor Unassigned, [place] Doctor Unassigned, [place] [facility] 1.2840.114 350.1.13.10 4.2.7.2.686 [id number] [facility] 2024-04-10 11:45:00 2024-04-10 13:36:21 Outpatient R AZALIA MICHEL AZALIA [facility] [id number] [facility] 2024-04-10 11:45:00 2024-04-10 13:36:21 Office Visit Az[facility] 1.840.114 350.1.13.10 4.2.7.2.686 [id number] [facility] 2024-04-07 00:00:00 2024-04-07 16:12:34 Telephone Beth Parry [facility] 1..114 350.1.13.10 4.2.7.2.686 [id number] [facility] 2024-04-05 00:00:00 2024-04-07 14:32:20 Refill Beth Parry [facility] 1.2840.114 350.1.13.10 4.2.7.2.686 [id number] [facility] 2024-04-05 00:00:00 2024-04-07 09:44:40 Mo Vegaine M [facility] 1..114 350.1.13.10 4.2.7.2.686 [id number] [facility] 2024-04-05 00:00:00 2024-04-05 17:52:40 Telephone Azalia Michel [facility] BUILD[facility] 1.0.114 350.1.13.10 4.2.7.2.686 [id number] [facility] 2024-04-04 15:30:00 2024-04-04 16:02:49 Outpatient R BETH PARRY [facility] [id number] [facility] 2024-04-04 15:30:00 2024-04-04 16:02:49 Telemedici ne Visit Beth Parry [facility] 1.114 350.1.13.10 4.2.7.2.686 [id number] [facility] 2024-04-02 00:00:00 2024-04-03 09:32:23 Refill Marie Garzon [facility] BUILD[facility] 1.114 350.1.13.10 4.2.7.2.686 [id number] [facility] 2024-03-26 00:00:00 2024-03-27 13:39:41 Patient Secure Msg Azalia Michel [facility] BUILD[facility] 1..114 350.1.13.10 4.2.7.2.686 [id number] [facility] 2024-03-25 00:00:00 2024-03-26 08:40:26 Refill Beth Parry [facility]PEC [facility] 1..114 350.1.13.10 4.2.7.2.686 [id number] [facility] 2024-03-25 00:00:00 2024-03-25 22:30:00 Patient Secure [facility] 1.2.840.114 350.1.13.10 4.2.7.2.686 [id number] [facility] 2024-03-24 08:38:00 2024-03-24 13:51:00 Outpatient R MARILU AZALIA MICHEL AZALIA [facility] [id number] [facility] 2024-03-24 08:38:00 2024-03-24 13:51:00 Hospital Encounter Azalia Michel [facility] 1.2.840.114 350.1.13.10 4.2.7.2.686 [id number] [facility] 2024-03-24 10:34:00 2024-03-24 11:48:00 Surgery Azalia Michel [facility] 1.2.840.114 350.1.13.10 4.2.7.2.686 [id number] [facility] 2024-03-21 00:00:00 2024-03-24 10:25:23 Telephone [facility] 1.2840.114 350.1.13.10 4.2.7.2.686 [id number] [facility] 2024 00:00:00 2024-03-22 18:22:25 Patient Secure Azalia Sepulveda [facility] 1.2.840.114 350.1.13.10 4.2.7.2.686 [id number] [facility] 2024-03-21 00:00:00 2024-03-21 13:03:[address] [facility] 1..840.114 350.1.13.10 4.2.7.2.686 [id number] [facility] 2024-03-20 12:45:16 2024-03-20 23:59:00 Outpatient R CURTIS MORLEY [facility] [id number] [facility] 2024-03-20 12:45:16 2024-03-20 23:59:00 Hospital Encounter Curtis Morley [facility] 1..840.114 350.1.13.10 4.2.7.2.686 [id number] [facility] 2024-03-14 00:00:00 2024-03-20 13:52:35 RefMarie Castaneda [facility] 1.2.840.114 350.1.13.10 4.2.7.2.686 [id number] [facility] 2024-03-20 13:00:00 2024-03-20 13:30:00 Office Visit Curtis Morley [facility] 1.2.840.114 350.1.13.10 4.2.7.2.686 [id number] [facility] 2024-03-17 00:00:00 2024-03-17 13:56:[address] [facility] 1.2.840.114 350.1.13.10 4.2.7.2.686 [id number] [facility] 2024-03-14 00:00:00 2024-03-14 15:35:58 RefBeth Pepper [facility]PEC [facility] 1.2.840.114 350.1.13.10 4.2.7.2.686 [id number] [facility] 2024-03-14 00:00:00 2024-03-14 14:36:12 Telephone Azalia Michel [facility] 1.2.840.114 350.1.13.10 4.2.7.2.686 [id number] [facility] 2024-03-14 00:00:00 2024-03-14 14:28:03 Prep For Surgery Azalia Michel [facility] 1.2.840.114 350.1.13.10 4.2.7.2.686 [id number] [facility] 2024-03-14 00:00:00 2024-03-14 12:39:52 Refill Taylor Cortez [facility] MED[facility] OFF[facility] BUILD[facility] 1.2.840.114 350.1.13.10 4.2.7.2.686 [id number] [id number] [facility] 2024-02-15 00:00:00 2024-03-14 09:43:14 Patient Secure Msg Marilu Azalia [facility] 1.2.840.114 350.1.13.10 4.2.7.2.686 [id number] [facility] 2024-03-14 00:00:00 2024-03-14 08:02:59 Refill Vanda Morales [facility] 1.2.840.114 350.1.13.10 4.2.7.2.686 [id number] [facility] 2024-03-14 00:00:00 2024-03-14 07:32:28 Refill Beth Parry [facility] MULTISPEC [facility] 1.2.840.114 350.1.13.10 4.2.7.2.686 [id number] [facility] 2024-03-06 00:00:00 2024-03-13 10:34:36 Refill Azalia Michel [facility] 1.2.840.114 350.1.13.10 4.2.7.2.686 [id number] [facility] 2024-03-13 00:00:00 2024-03-13 08:10:45 Telephone Azalia Michel [facility] 1.2.840.114 350.1.13.10 4.2.7.2.686 [id number] [facility] 2024-03-06 00:00:00 2024-03-07 12:47:07 Refill Taylor Cortez [facility] MED[facility] OFF[facility] BUILD[facility] 1.2.840.114 350.1.13.10 4.2.7.2.686 [id number] [facility] 2024-03-04 00:00:00 2024-03-04 16:51:56 Telephone Azalia Michel [facility] BU[facility] 1.2.840.114 350.1.13.10 4.2.7.2.686 [id number] [facility] 2024-02-27 00:00:00 2024-02-28 09:44:29 Refill Taylor Cortez [facility] MED[facility] OFF[facility] BUILD[facility] 1.2.840.114 350.1.13.10 4.2.7.2.686 [id number] [id number] [facility] 2024-02-27 00:00:00 2024-02-27 17:17:06 Refill Beth Parry [facility] 1.2.840.114 350.1.13.10 4.2.7.2.686 [id number] [facility] 2024-02-12 00:00:00 2024-02-13 16:38:47 Patient Secure [facility] 1.2.840.114 350.1.13.10 4.2.7.2.686 [id number] [facility] 2024-02-12 00:00:00 2024-02-12 16:57:41 Patient Secure Msg [facility] MED[facility] OFF[facility] BUILD[facility] 1.2.840.114 350.1.13.10 4.2.7.2.686 [id number] [facility] 2024-02-08 00:00:00 2024-02-12 15:03:08 Refill Taylor Cortez [facility] MEDICAL OFFICE BUILDING 1.2840.114 350.1.13.10 4.2.7.2.686 [id number] [facility] 2024-02-07 00:00:00 2024-02-08 17:41:01 Refill Beth Parry [facility] 1.2840.114 350.1.13.10 4.2.7.2.686 [id number] [facility] 2024-02-07 00:00:00 2024-02-08 11:00:00 Refill Taylor Cortez [facility] MEDICAL OFFICE BUILDING 1.2.840.114 350.1.13.10 4.2.7.2.686 [id number] [facility] 2024-02-07 00:00:00 2024-02-08 08:33:55 Refill Vanda Morales [facility] 1.2.840.114 350.1.13.10 4.2.7.2.686 [id number] [facility] 2024-02-07 14:45:00 2024-02-07 15:38:04 Outpatient R YAA CHAO WENDemetri [facility] [id number] [facility] 2024-02-07 14:45:00 2024-02-07 15:38:04 Office Visit Yaa Chao [facility] 1..114 350.1.13.10 4.2.7.2.686 [id number] [facility] 2024-02-06 13:30:00 2024-02-06 14:14:08 Outpatient R ARGENTINA MCDONALD VIVIAN [facility] [id number] [facility] 2024-02-06 13:30:00 2024-02-06 14:14:08 Office Visit Argentina Mcdonald [facility] 1.114 350.1.13.10 4.2.7.2.686 [id number] [facility] 2024-02-05 16:30:46 2024-02-05 16:30:46 Outpatient [facility] [id number] Chalino Esteban 2024-02-04 14:30:00 2024-02-04 15:19:52 Outpatient R AMRIE GARZON [facility] [id number] [facility] 2024-02-04 14:30:00 2024-02-04 15:19:52 Office Visit Marie Garzon [facility] MED[facility] OFF[facility] BUILD[facility] 1..114 350.1.13.10 4.2.7.2.686 [id number] [facility] 2024-01-31 00:00:00 2024-02-04 10:44:50 Taylor Vega [facility] MED[facility] 1..114 350.1.13.10 4.2.7.2.686 [id number] [facility] 2024-01-24 00:00:00 2024-01-24 16:31:06 Case Management Taylor Cortez [facility] MED[facility] BU[facility] 1.2.840.114 350.1.13.10 4.2.7.2.686 [id number] [facility] 2024-01-24 00:00:00 2024-01-24 16:27:40 Patient Outreach Saumya Priest [facility] MEDICAL OFFICE BUILDING 1.2.840.114 350.1.13.10 4.2.7.2.686 [id number] [facility] 2024-01-23 15:02:49 2024-01-23 23:59:00 Hospital Encounter Beth Parry [facility] MEDICAL OFFICE BUILDING 1.2.840.114 350.1.13.10 4.2.7.2.686 [id number] [facility] 2024-01-23 15:02:48 2024-01-23 23:59:00 Hospital Encounter Sohan Beth [facility] 1.2.840.114 350.1.13.10 4.2.7.2.686 [id number] [facility] 2024-01-23 14:20:00 2024-01-23 15:40:40 Outpatient R TAYLOR CORTEZ [facility] [id number] [facility] 2024-01-23 14:20:00 2024-01-23 15:00:00 Office Visit Taylor Cortez [facility] 1.2.840.114 350.1.13.10 4.2.7.2.686 [id number] 044 [id number] [facility] 2024-01-15 16:15:00 2024-01-15 17:07:26 Outpatient R AZALIA MICHEL [facility] [id number] [facility] 2024-01-15 16:15:00 2024-01-15 17:07:26 Office Visit Marilu Azalia [facility] 1.840.114 350.1.13.10 4.2.7.2.686 [id number] [facility] 2024-01-15 14:30:00 2024-01-15 16:45:29 Office Visit [facility] 1.0.114 350.1.13.10 4.2.7.2.686 [id number] 011 [id number] [facility] 2024-01-12 00:00:00 2024-01-15 11:47:11 Refill Taylor Cortez [facility] MEDICAL OFFICE BUILDING 1.84.114 350.1.13.10 4.2.7.2.686 [id number] 044 [id number] [facility] 2024-01-12 00:00:00 2024-01-14 08:11:03 Refill Curtis Morley [facility]TY [facility] 1..114 350.1.13.10 4.2.7.2.686 [id number] 011 [id number] [facility] 2024-01-03 00:00:00 2024-01-03 10:30:49 Telephone Marie Garzon [facility] MEDICAL OFFICE BUILDING 1.2840.114 350.1.13.10 4.2.7.2.686 [id number] 220 [id number] [facility] 2023-12-26 00:00:00 2023-12-26 15:29:45 Taylor Vega [facility] MEDICAL OFFICE BUILDING 1.840.114 350.1.13.10 4.2.7.2.686 [id number] 044 [id number] [facility] 2023-12-25 00:00:00 2023-12-26 08:32:49 Telephone [facility] MEDICAL OFFICE BUILDING 1.840.114 350.1.13.10 4.2.7.2.686 [id number] 220 [id number] [facility] 2023-12-24 00:00:00 2023-12-24 15:37:04 [facility] MEDICAL OFFICE BUILDING 1.0.114 350.1.13.10 4.2.7.2.686 [id number] 220 [id number] [facility] 2023-12-19 13:45:00 2023-12-19 15:23:12 Outpatient R ABIEL ALFARO [facility] [id number] [facility] 2023-12-19 13:45:00 2023-12-19 15:23:12 Office Visit Abiel Alfaro [facility] CAT DRIVER [facility] 1.0.114 350.1.13.10 4.2.7.2.686 [id number] [facility] 2023-12-12 15:40:00 2023-12-12 15:40:00 Outpatient R TAYLOR CORTEZ [facility] [id number] [facility] 2023-12-01 00:00:00 2023-12-01 00:00:00 Taylor Vega [facility] MEDICAL OFFICE BUILDING 1.2840.114 350.1.13.10 4.2.7.2.686 [id number] 044 [id number] [facility] 2023-11-07 00:00:00 2023-11-07 00:00:00 Telephone Richa Dominguez [facility] MEDICAL OFFICE BUILDING 1.2.840.114 350.1.13.10 4.2.7.2.686 [id number] 220 [id number] [facility] 2023-11-05 00:00:00 2023-11-05 00:00:00 Taylor Vega [facility] MEDICAL OFFICE BUILDING 1.2.840.114 350.1.13.10 4.2.7.2.686 [id number] 044 [id number] [facility] 2023-10-19 00:00:00 2023-10-19 00:00:00 Patient Secure Marie Dietrich [facility] MEDICAL OFFICE BUILDING 1.2.840.114 350.1.13.10 4.2.7.2.686 [id number] 220 [id number] [facility] 2023-10-16 00:00:00 2023-10-16 00:00:00 Patient Secure Marie Dietrich [facility] MEDICAL OFFICE BUILDING 1.2.840.114 350.1.13.10 4.2.7.2.686 [id number] 220 [id number] [facility] 2023-10-15 15:30:00 2023-10-15 15:45:00 Piping Drafter Visit Lab, [facility] MEDICAL OFFICE BUILDING 1.2840.114 350.1.13.10 4.2.7.2.686 [id number] [facility] 2023-10-15 15:30:00 2023-10-15 15:30:00 Outpatient R MARIE GARZON [facility] [id number] [facility] 2023-10-15 14:30:00 2023-10-15 15:18:52 Office Visit Marie Garzon Yu [facility] MEDICAL OFFICE BUILDING 1.284.114 350.1.13.10 4.2.7.2.686 [id number] 220 [id number] [facility] 2023-10-13 00:00:00 2023-10-13 00:00:00 Refill Taylor Cortez [facility] MEDICAL OFFICE BUILDING 1.84.114 350.1.13.10 4.2.7.2.686 [id number] 044 [id number] [facility] 2023-10-08 13:00:00 2023-10-08 13:00:00 Outpatient R BETH PARRY [facility] [id number] [facility] 2023-09-25 00:00:00 2023-09-25 00:00:00 Telephone MalkaHyacinth charlotte [facility] 1.84.114 350.1.13.10 4.2.7.2.686 [id number] 134 [id number] [facility] 2023-09-25 00:00:00 2023-09-25 00:00:00 Telephone MalkaHyacinth charlotte [facility] 1.84.114 350.1.13.10 4.2.7.2.686 [id number] 134 [id number] [facility] 2023-09-20 00:00:00 2023-09-20 00:00:00 Refill Beth Parry [facility] 1..114 350.1.13.10 4.2.7.2.686 [id number] [id number] [facility] 2023-09-20 00:00:00 2023-09-20 00:00:00 Refill Taylor Cortez [facility] 1.840.114 350.1.13.10 4.2.7.2.686 [id number] [id number] [facility] 2023-09-14 00:00:00 2023-09-14 00:00:00 Patient Secure Msg Doctor Unassigned, [place] [facility] 1.840.114 350.1.13.10 4.2.7.2.686 [id number] 134 [id number] [facility] 2023-09-13 00:00:00 2023-09-13 00:00:00 [facility] 1.0.114 350.1.13.10 4.2.7.2.686 [id number] 011 [id number] [facility] 2023-09-12 14:13:36 2023-09-12 23:59:00 Outpatient R CURTIS MORLEY [facility] [id number] [facility] 2023-09-12 14:13:36 2023-09-12 23:59:00 Hospital En[facility] 1.0.114 350.1.13.10 4.2.7.2.686 [id number] [id number] [facility] 2023-09-12 14:30:00 2023-09-12 15:00:00 Office Visit [facility] 1.0.114 350.1.13.10 4.2.7.2.686 [id number] 011 [id number] [facility] 2023-09-12 00:00:00 2023-09-12 00:00:00 Orders Only Doctor Unassigned, [place] [facility] 1.840.114 350.1.13.10 4.2.7.2.686 [id number] [facility] 2023-09-10 16:15:00 2023-09-10 16:30:00 Piping Drafter Visit 2, Adc Lab Brianna [facility]sol [facility] BU[facility] 1.2840.114 350.1.13.10 4.2.7.2.686 [id number] [facility] 2023-09-10 15:30:00 2023-09-10 16:15:28 Outpatient R JUAN MANUEL Bellamy, CARMEN JUAN MANUEL Bellamy, [facility] [id number] [facility] 2023-09-10 15:30:00 2023-09-10 16:15:28 Office Visit Brianna Triplettsol [facility] BUILDING 1.2840.114 350.1.13.10 4.2.7.2.686 [id number] 134 [id number] [facility] 2023-09-10 00:00:00 2023-09-10 00:00:00 Telephone Curtis Morley [facility] M[facility]ISPEC [facility] 1.0.114 350.1.13.10 4.2.7.2.686 [id number] 011 [id number] [facility] 2023-09-10 00:00:00 2023-09-10 00:00:00 Orders Only Doctor Unassigned, [place] [facility] 1.2840.114 350.1.13.10 4.2.7.2.686 [id number] [id number] [facility] 2023-08-24 00:00:00 2023-08-24 00:00:00 Beth Prasad [facility] M[facility]PEC [facility] 1..114 350.1.13.10 4.2.7.2.686 [id number] [id number] [facility] 2023-08-08 00:00:00 2023-08-08 00:00:00 Refill Taylor Cortez Tameka [facility]?KENNET[facility] MEDICAL OFFICE BUILDING 1..840.114 350.1.13.10 4.2.7.2.686 [id number] 044 [id number] [facility] 2023-07-20 14:30:00 2023-07-20 14:30:00 Outpatient R HERNANDEZ-HYACINTH S, CARMEN HERNANDEZ-HYACINTH S, CARMEN [facility] [id number] [facility] 2023-07-20 14:30:00 2023-07-20 14:30:00 Outpatient R HERNANDEZ-HYACINTH S, CARMEN HERNANDEZ-HYACINTH S, CARMEN [facility] [id number] [facility] 2023-07-20 00:00:00 2023-07-20 00:00:00 Refill [facility] MEDICAL OFFICE BUILDING 1..840.114 350.1.13.10 4.2.7.2.686 [id number] [facility] 2023-07-16 13:30:00 2023-07-16 13:30:00 Outpatient R RICHA DOMINGUEZ YU [facility] [id number] [facility] 2023-06-28 00:00:00 2023-06-28 00:00:00 Refill Taylor Cortez T[facility] MEDICAL OFFICE BUILDING 1..840.114 350.1.13.10 4.2.7.2.686 [id number] 044 [id number] [facility] 2023-06-25 13:30:00 2023-06-25 15:07:28 Outpatient BETH CASTRO [facility] [id number] [facility] 2023-06-25 13:30:00 2023-06-25 15:07:28 Office Visit Beth Parry [facility] 1.840.114 350.1.13.10 4.2.7.2.686 [id number] [id number] [facility] 2023-06-25 00:00:00 2023-06-25 00:00:00 Refill Taylor Cortez [facility] 1.2840.114 350.1.13.10 4.2.7.2.686 [id number] 044 [id number] [facility] 2023-06-15 00:00:00 2023-06-15 00:00:00 Refill Beth Parry [facility] 1.0.114 350.1.13.10 4.2.7.2.686 [id number] 011 [id number] [facility] 2023-06-14 00:00:00 2023-06-14 00:00:00 Refill Richa Dominguez [facility] MEDICAL OFFICE BUILDING 1.20.114 350.1.13.10 4.2.7.2.686 [id number] 220 [id number] [facility] 2023-06-13 00:00:00 2023-06-13 00:00:00 Patient Secure Richa Okeefe [facility] MEDICAL OFFICE BUILDING 1.2840.114 350.1.13.10 4.2.7.2.686 [id number] 220 [id number] [facility] 2023-06-11 13:30:00 2023-06-11 14:13:46 Outpatient R RICHA DOMINGUEZ ANGELICARICHA [facility] [id number] [facility] 2023-06-11 13:30:00 2023-06-11 14:13:46 Office Visit Richa Dominguez [facility] MED[facility] 1.2840.114 350.1.13.10 4.2.7.2.686 [id number] 220 [id number] [facility] 2023-06-06 14:15:00 2023-06-06 14:30:00 Piping Drafter Visit Lab, Raj - Taylor Caba [facility] MEDICAL OFFICE BUILDING 1.84.114 350.1.13.10 4.2.7.2.686 [id number] [facility] 2023-06-06 13:40:00 2023-06-06 14:09:23 Outpatient R TAYLOR CORTEZ [facility] [id number] [facility] 2023-06-06 13:40:00 2023-06-06 14:09:23 Office Visit Taylor Cortez [facility] MEDICAL OFF[facility] BUILD[facility] 1.114 350.1.13.10 4.2.7.2.686 [id number] 044 [id number] [facility] 2023-05-31 00:00:00 2023-05-31 00:00:00 Refill Taylor Cortez [facility] MEDICAL OFFICE BUILDING 1.114 350.1.13.10 4.2.7.2.686 [id number] 044 [id number] [facility] 2023-05-22 00:00:00 2023-05-22 00:00:00 Patient Secure Msg Doctor Unassigned, [place] [facility] 1.114 350.1.13.10 4.2.7.2.686 [id number] 134 [id number] [facility] 2023-05-15 00:00:00 2023-05-15 00:00:00 Telephone Curtis Morley [facility] 1.114 350.1.13.10 4.2.7.2.686 [id number] [id number] [facility] 2023-05-15 00:00:00 2023-05-15 00:00:[address] [facility] MULTISPEC [facility] 1.2.840.114 350.1.13.10 4.2.7.2.686 [id number] 011 [id number] [facility] 2023-05-11 13:16:47 2023-05-11 23:59:00 Outpatient R CURTIS MORLEY [facility] [id number] [facility] 2023-05-11 13:16:47 2023-05-11 23:59:00 Hospital Encounter [facility]PEC [facility] 1.2.840.114 350.1.13.10 4.2.7.2.686 [id number] [facility] 2023-05-11 13:30:00 2023-05-11 14:00:00 [facility] 1.2.840.114 350.1.13.10 4.2.7.2.686 [id number] 011 [id number] [facility] 2023-05-09 00:00:00 2023-05-09 00:00:00 Telephone Peyman Curtis [facility] 1.2.840.114 350.1.13.10 4.2.7.2.686 [id number] 011 [id number] [facility] 2023-05-09 00:00:00 2023-05-09 00:00:00 Patient Secure Msg Doctor Unassigned, [place] [facility] 1.2.840.114 350.1.13.10 4.2.7.2.686 [id number] [id number] [facility] 2023-05-08 00:00:00 2023-05-08 00:00:00 Telephone Ez Palacio [facility] 1.2.840.114 350.1.13.10 4.2.7.2.686 [id number] [facility] 2023-05-07 13:30:00 2023-05-07 13:30:00 Outpatient ELDER ORTIZ [facility] [id number] [facility] 2023-05-05 00:00:00 2023-05-05 00:00:00 Refill Taylor Cortez [facility] 1.2840.114 350.1.13.10 4.2.7.2.686 [id number] 044 [id number] [facility] 2023-05-02 13:00:00 2023-05-02 13:28:05 Outpatient [facility] [id number] [facility] 2023-05-02 13:00:00 2023-05-02 13:28:05 Office Visit Ez Palacio [facility] 1.2840.114 350.1.13.10 4.2.7.2.686 [id number] 134 [id number] [facility] 2023-05-02 00:00:00 2023-05-02 00:00:00 Orders Only Ez Palacio [facility] 1.2840.114 350.1.13.10 4.2.7.2.686 [id number] [facility] 2023-05-01 00:00:00 2023-05-01 00:00:00 Refill Richa Dominguez [facility]?KENNETH [facility] MEDICAL OFFICE BUILDING 1.284.114 350.1.13.10 4.2.7.2.686 [id number] [facility] 2023-04-09 07:30:00 2023-04-09 10:06:00 Outpatient NORBERT MARSH GABRIEL [facility] [id number] [facility] 2023-04-09 07:30:00 2023-04-09 10:06:00 Hospital Encounter Norbert Gay [facility] 1.2.840.114 350.1.13.10 4.2.7.2.686 [id number] [id number] [facility] 2023-04-09 08:54:00 2023-04-09 09:16:00 Anesthesia Event Yvonne Mehta Carlos [facility] 1.2.840.114 350.1.13.10 4.2.7.2.686 [id number] [id number] [facility] 2023-04-09 08:00:00 2023-04-09 08:30:00 Surgery Norbert Gay [facility] 1.2.840.114 350.1.13.10 4.2.7.2.686 [id number] 020 [id number] [facility] 2023-04-09 00:00:00 2023-04-09 00:00:00 Orders Only Doctor Unassigned, [place] [facility] 1.2.840.114 350.1.13.10 4.2.7.2.686 [id number] [facility] 2023-04-07 00:00:00 2023-04-07 00:00:00 Taylor Vega [facility]?ANNEErna [facility] OFF[facility]ILD[facility] 1.2840.114 350.1.13.10 4.2.7.2.686 [id number] [id number] [facility] 2023-04-05 14:00:00 2023-04-05 15:28:11 Outpatient R EAMON CARRASCO RYAJA [facility] [id number] [facility] 2023-04-05 14:00:00 2023-04-05 15:28:11 Office Visit Eamon Carrasco [facility]PEC [facility] 1.840.114 350.1.13.10 4.2.7.2.686 [id number] 011 [id number] [facility] 2023-04-05 00:00:00 2023-04-05 00:00:00 Telephone Beth Parry [facility]PEC [facility] 1.2.840.114 350.1.13.10 4.2.7.2.686 [id number] [id number] [facility] 2023-04-02 00:00:00 2023-04-02 00:00:00 Taylor Vega [facility]?KEN[facility]H [facility]ILD[facility] 1.2840.114 350.1.13.10 4.2.7.2.686 [id number] 044 [id number] [facility] 2023-03-30 00:00:00 2023-03-30 00:00:00 Telephone Naina Segovia [facility] MULTISPEC [facility] 1.840.114 350.1.13.10 4.2.7.2.686 [id number] [id number] [facility] 2023-03-29 14:30:00 2023-03-29 15:00:00 Office Visit Naina Segovia [facility] 1.840.114 350.1.13.10 4.2.7.2.686 [id number] [id number] [facility] 2023-03-29 14:30:00 2023-03-29 14:30:00 Outpatient NAINA CABALLERO [facility] [id number] [facility] 2023-03-21 12:30:00 2023-03-21 12:30:00 Outpatient HOLLY HERNANDEZ [facility] [id number] [facility] 2023-03-19 00:00:00 2023-03-19 00:00:00 Telephone Beth Parry [facility] MULTISPEC [facility] 1.840.114 350.1.13.10 4.2.7.2.686 [id number] [id number] [facility] 2023-03-19 00:00:00 2023-03-19 00:00:00 Orders Only Doctor Unassigned, [place] [facility] 1.840.114 350.1.13.10 4.2.7.2.686 [id number] [id number] [facility] 2023-03-14 00:00:00 2023-03-14 00:00:00 Telephone Beth Parry [facility] 1.840.114 350.1.13.10 4.2.7.2.686 [id number] 011 [id number] [facility] 2023-03-13 14:30:00 2023-03-13 15:27:42 Outpatient R BETH PARRY [facility] [id number] [facility] 2023-03-13 14:30:00 2023-03-13 15:27:42 Office Visit Beth Parry [facility] 1.840.114 350.1.13.10 4.2.7.2.686 [id number] [id number] [facility] 2023-03-12 10:00:00 2023-03-12 10:00:00 Outpatient NAINA CABALLERO [facility] [id number] [facility] 2023-03-11 00:00:00 2023-03-11 00:00:00 Radha Stafford [facility] 1.2840.114 350.1.13.10 4.2.7.2.686 [id number] [facility] 2023-03-06 15:20:00 2023-03-06 16:11:30 Outpatient TAYLOR PARKS [facility] [id number] [facility] 2023-03-06 15:20:00 2023-03-06 16:11:30 Office Visit Taylor Cortez [facility]?KEN[facility]H [facility] MEDICAL OFF[facility] BUILDING 1.84.114 350.1.13.10 4.2.7.2.686 [id number] [id number] [facility] 2023-03-06 00:00:00 2023-03-06 00:00:00 Refill Raul Wilkinson [facility] MEDICAL OFFICE BUILDING 1.114 350.1.13.10 4.2.7.2.686 [id number] [id number] [facility] 2023-02-25 00:00:00 2023-02-25 00:00:00 Refill Radha Trinidad [facility] 1.114 350.1.13.10 4.2.7.2.686 [id number] [facility] 2023-02-19 14:15:00 2023-02-19 14:26:26 Outpatient DUNCAN LAWS [facility] [id number] [facility] 2023-02-19 14:15:00 2023-02-19 14:26:26 Office Visit Duncan Ramos [facility] MEDICAL OFFICE BUILDING 1.114 350.1.13.10 4.2.7.2.686 [id number] [facility] 2023-02-18 00:00:00 2023-02-18 00:00:00 Orders Only Doctor Unassigned, [place] [facility] 1.114 350.1.13.10 4.2.7.2.686 [id number] [facility] 2023-02-12 09:30:00 2023-02-12 09:30:00 Outpatient R RICHA DOMINGUEZ YU [facility] [id number] [facility] 2023-02-02 00:00:00 2023-02-02 00:00:00 RefRadha Caldwell [facility] 1.840.114 350.1.13.10 4.2.7.2.686 [id number] [facility] 2023-01-30 15:00:00 2023-01-30 15:28:38 Outpatient R CHAMORRO [facility] [id number] [facility] 2023-01-30 15:00:00 2023-01-30 15:28:38 Office Visit Donell Aultman [facility]ILD[facility] 1..114 350.1.13.10 4.2.7.2.686 [id number] [id number] [facility] 2023-01-30 00:00:00 2023-01-30 00:00:00 Refill [facility] Mor[facility] 1.114 350.1.13.10 4.2.7.2.686 [id number] [facility] 2023-01-30 00:00:00 2023-01-30 00:00:00 Orders Only Doctor Unassigned, [place] [facility] 1.114 350.1.13.10 4.2.7.2.686 [id number] [facility] 2023-01-29 00:00:00 2023-01-29 00:00:00 Radha Stafford [facility] 1..114 350.1.13.10 4.2.7.2.686 [id number] 311 [id number] [facility] 2023-01-28 00:00:00 2023-01-28 00:00:00 [facility] 1.2840.114 350.1.13.10 4.2.7.2.686 [id number] [facility] 2023-01-26 00:00:00 2023-01-26 00:00:00 Telephone SegoviaNaina [facility] 1.2840.114 350.1.13.10 4.2.7.2.686 [id number] [facility] 2023-01-25 00:00:00 2023-01-25 00:00:00 Refill AngelicaRicha [facility] MEDICAL OFFICE BUILDING 1.2840.114 350.1.13.10 4.2.7.2.686 [id number] 220 [id number] [facility] 2023-01-25 00:00:00 2023-01-25 00:00:00 Patient Secure Msg Segovia Chew [facility] 1.2840.114 350.1.13.10 4.2.7.2.686 [id number] [facility] 2023-01-24 00:00:00 2023-01-24 00:00:00 Refill Radha Trinidad [facility] 1.840.114 350.1.13.10 4.2.7.2.686 [id number] 311 [id number] [facility] 2023-01-24 00:00:00 2023-01-24 00:00:00 Telephone AngelicaRicha [facility] MEDICAL OFF[facility] BUILDING 1.2840.114 350.1.13.10 4.2.7.2.686 [id number] [facility] 2023-01-24 00:00:00 2023-01-24 00:00:00 Refill Taylor Cortez [facility] OFF[facility] BUILDING 1.2840.114 350.1.13.10 4.2.7.2.686 [id number] [id number] [facility] 2023-01-24 00:00:00 2023-01-24 00:00:00 Sabrina Grant [facility] 1.2840.114 350.1.13.10 4.2.7.2.686 [id number] [id number] [facility] 2023-01-19 14:40:00 2023-01-19 15:02:51 Outpatient R TAYLOR CORTEZ [facility] [id number] [facility] 2023-01-19 14:40:00 2023-01-19 15:02:51 Office Visit Taylor Cortez [facility] MEDICAL OFFICE BUILDING 1.0.114 350.1.13.10 4.2.7.2.686 [id number] 044 [id number] [facility] 2023-01-16 00:00:00 2023-01-16 00:00:00 Telephone Naina Segovia [facility] 1.2840.114 350.1.13.10 4.2.7.2.686 [id number] [id number] [facility] 2023-01-10 00:00:00 2023-01-10 00:00:00 Telephone Ez Palacio [facility] 1.2.840.114 350.1.13.10 4.2.7.2.686 [id number] [facility] 2023-01-09 10:45:00 2023-01-09 11:00:00 Piping Drafter Visit [facility] Harjinder Meyer [facility] MULTISPEC IALTY [facility] 1.840.114 350.1.13.10 4.2.7.2.686 [id number] [facility] 2023-01-09 09:40:00 2023-01-09 10:34:43 Outpatient R JACOBHARJINDER VALENCIA [facility] [id number] [facility] 2023-01-09 09:40:00 2023-01-09 10:34:43 Office Visit Harjinder Meyer [facility] MULTISPEC IALTY [facility] 1..114 350.1.13.10 4.2.7.2.686 [id number] 086 [id number] [facility] 2023-01-05 00:00:00 2023-01-05 00:00:00 Telephone Naina Segovia [facility] 1.114 350.1.13.10 4.2.7.2.686 [id number] [id number] [facility] 2023-01-04 00:00:00 2023-01-04 00:00:00 Patient Secure Msg Ez Palacio [facility] 1.114 350.1.13.10 4.2.7.2.686 [id number] [facility] 2023-01-01 13:30:00 2023-01-01 14:22:24 Outpatient ELDER ORTIZ [facility] [id number] [facility] 2023-01-01 13:30:00 2023-01-01 14:22:24 Office Visit Vanda Morales Joseph Marc [facility] 1.114 350.1.13.10 4.2.7.2.686 [id number] [id number] [facility] 2023-01-01 10:45:00 2023-01-01 11:46:35 Piping Drafter Visit Lab, Raj - Ez Bustos [facility] 1.2.840.114 350.1.13.10 4.2.7.2.686 [id number] [facility] 2023-01-01 10:00:00 2023-01-01 10:26:07 Office Visit Ez Palacio [facility] 1.2.840.114 350.1.13.10 4.2.7.2.686 [id number] [facility] 2023-01-01 00:00:00 2023-01-01 00:00:00 Orders Only Doctor Unassigned, [place] [facility] 1.2840.114 350.1.13.10 4.2.7.2.686 [id number] [facility] 2022-12-26 11:30:00 2022-12-26 11:30:00 Outpatient R EZ PALACIO CHERYAL [facility] [id number] [facility] 2022-12-26 00:00:00 2022-12-26 00:00:00 Telephone Radha Trinidad [facility] 1.2840.114 350.1.13.10 4.2.7.2.686 [id number] 311 [id number] [facility] 2022-12-11 10:04:30 2022-12-11 23:59:00 Outpatient R CURTIS MORLEY [facility] [id number] [facility] 2022-12-11 10:04:30 2022-12-11 23:59:00 Hospital Encounter Curtis Morley [facility] MULTISPEC [facility]ALTY [facility] 1.2840.114 350.1.13.10 4.2.7.2.686 [id number] [facility] 2022-12-11 10:30:00 2022-12-11 11:45:55 Office Visit Curits [facility] MULTISPEC [facility]ALTY [facility] 1.2840.114 350.1.13.10 4.2.7.2.686 [id number] [facility] 2022-12-11 10:00:00 2022-12-11 10:00:00 Outpatient RICHA BURLESON YU [facility] [id number] [facility] 2022-12-11 00:00:00 2022-12-11 00:00:00 Radha Stafford [facility] 1.2.840.114 350.1.13.10 4.2.7.2.686 [id number] [facility] 2022-12-07 00:00:00 2022-12-07 00:00:00 Telephone Curtis Morley [facility] 1.2840.114 350.1.13.10 4.2.7.2.686 [id number] [id number] [facility] 2022-12-07 00:00:00 2022-12-07 00:00:00 Patient Secure Msg Doctor Unassigned, [place] [facility] 1.2.840.114 350.1.13.10 4.2.7.2.686 [id number] 092 [id number] [facility] 2022-12-06 00:00:00 2022-12-06 00:00:00 Telephone Skyler Potter [facility] 1.2.840.114 350.1.13.10 4.2.7.2.686 [id number] 092 [id number] [facility] 2022-12-06 00:00:00 2022-12-06 00:00:00 Patient Secure Msg VegaSkyler [facility] 1.2.840.114 350.1.13.10 4.2.7.2.686 [id number] 092 [id number] [facility] 2022-12-05 00:00:00 2022-12-05 00:00:00 Telephone TrinidadRadha [facility] 1.2840.114 350.1.13.10 4.2.7.2.686 [id number] 311 [id number] [facility] 2022-12-05 00:00:00 2022-12-05 00:00:00 Refill Taylor Cortez [facility] MED[facility] 1.2840.114 350.1.13.10 4.2.7.2.686 [id number] 044 [id number] [facility] 2022-12-05 00:00:00 2022-12-05 00:00:00 Telephone Skyler Potter [facility] MEDICAL OFFICE BUILDING 1.2840.114 350.1.13.10 4.2.7.2.686 [id number] 092 [id number] [facility] 2022-12-05 00:00:00 2022-12-05 00:00:00 Telephone Skyler Potter [facility] MEDICAL OFFICE BUILDING 1.84.114 350.1.13.10 4.2.7.2.686 [id number] 092 [id number] [facility] 2022-11-30 15:00:00 2022-11-30 15:00:00 Outpatient R TAYLOR CORTEZ [facility] [id number] [facility] 2022-11-29 11:30:00 2022-11-29 12:34:48 Outpatient R TAYLOR COTREZ [facility] [id number] [facility] 2022-11-29 11:30:00 2022-11-29 12:34:48 Office Visit Taylor Cortez [facility] MED[facility] OFF[facility] BU[facility] 1.284.114 350.1.13.10 4.2.7.2.686 [id number] [facility] 2022-11-29 00:00:00 2022-11-29 00:00:00 Telephone GisellaNaina [facility] MULTISPEC IALTY [facility] 1.2.840.114 350.1.13.10 4.2.7.2.686 [id number] [id number] [facility] 2022-11-28 00:00:00 2022-11-28 00:00:00 Case Management Gisella [facility] 1.2.840.114 350.1.13.10 4.2.7.2.686 [id number] 085 [id number] [facility] 2022-11-28 00:00:00 2022-11-28 00:00:00 Patient Secure Msg Gisella [facility] IALTY [facility] 1.840.114 350.1.13.10 4.2.7.2.686 [id number] [id number] [facility] 2022-11-04 00:00:00 2022-11-04 00:00:00 Refill Holly Fregoso [facility] 1.2.840.114 350.1.13.10 4.2.7.2.686 [id number] 044 [id number] [facility] 2022-11-02 00:00:00 2022-11-02 00:00:00 Refill Radha Trinidad [facility] 1.840.114 350.1.13.10 4.2.7.2.686 [id number] [facility] 2022-10-26 13:25:59 2022-10-26 23:59:00 Outpatient R MEGHAN MARKHAM [facility] [id number] [facility] 2022-10-26 13:25:59 2022-10-26 23:59:00 Hospital Encounter Meghan Markham [facility] MEDICAL OFFICE BUILDING 1.2840.114 350.1.13.10 4.2.7.2.686 [id number] 038 [id number] [facility] 2022-10-26 00:00:00 2022-10-26 00:00:00 Refill ZenobiaHolly kaur [facility] 1.2840.114 350.1.13.10 4.2.7.2.686 [id number] 044 [id number] [facility] 2022-10-26 00:00:00 2022-10-26 00:00:00 Refill Radha Trinidad [facility] 1.20.114 350.1.13.10 4.2.7.2.686 [id number] [id number] [facility] 2022-10-26 00:00:00 2022-10-26 00:00:00 Refill Radha Trinidad [facility] 1.2840.114 350.1.13.10 4.2.7.2.686 [id number] 311 [id number] [facility] 2022-10-26 00:00:00 2022-10-26 00:00:00 Refill Richa Dominguez [facility] 1.0.114 350.1.13.10 4.2.7.2.686 [id number] [facility] 2022-10-26 00:00:00 2022-10-26 00:00:00 Refill TrinidadRadha vidal [facility] 1.2840.114 350.1.13.10 4.2.7.2.686 [id number] 311 [id number] [facility] 2022-10-26 00:00:00 2022-10-26 00:00:00 Refill Richa Dominguez [facility] 1.2840.114 350.1.13.10 4.2.7.2.686 [id number] [facility] 2022-10-26 00:00:00 2022-10-26 00:00:00 Telephone [facility] MED[facility] OFF[facility] BU[facility] 1.84.114 350.1.13.10 4.2.7.2.686 [id number] 044 [id number] [facility] 2022-10-26 00:00:00 2022-10-26 00:00:00 Curtis Iniguez [facility] MULTISPEC IALTY CENTER [facility] 1..114 350.1.13.10 4.2.7.2.686 [id number] [id number] [facility] 2022-10-25 14:00:00 2022-10-25 14:40:59 Outpatient R NAINA SEGOVIA [facility] [id number] [facility] 2022-10-25 14:00:00 2022-10-25 14:40:59 Office Visit Naina Segovia [facility] 1..114 350.1.13.10 4.2.7.2.686 [id number] 085 [id number] [facility] 2022-10-25 00:00:00 2022-10-25 00:00:00 Telephone Holly [facility]H [facility] MED[facility] 1.84.114 350.1.13.10 4.2.7.2.686 [id number] 044 [id number] [facility] 2022-10-24 09:20:00 2022-10-24 10:35:48 Outpatient R SKYLER POTTER HOWARD [facility] [id number] [facility] 2022-10-24 09:20:00 2022-10-24 10:35:48 Office Visit Skyler Potter [facility] MED[facility] OFF[facility] 1.0.114 350.1.13.10 4.2.7.2.686 [id number] 092 [id number] [facility] 2022-10-24 00:00:00 2022-10-24 00:00:00 Patient Secure Msg Doctor Unassigned, [place] [facility] 1.2840.114 350.1.13.10 4.2.7.2.686 [id number] 019 [id number] [facility] 2022-10-22 00:00:00 2022-10-22 00:00:00 Telephone Holly Fregoso [facility] OFFICE BUILDING 1..114 350.1.13.10 4.2.7.2.686 [id number] 044 [id number] [facility] 2022-10-20 00:00:00 2022-10-20 00:00:00 Telephone Holly Fregoso [facility] MEDICAL OFFICE BUILDING 1.0.114 350.1.13.10 4.2.7.2.686 [id number] 044 [id number] [facility] 2022-10-18 15:00:00 2022-10-18 15:35:29 Outpatient R HOLLY FREGOSO [facility] [id number] [facility] 2022-10-18 15:00:00 2022-10-18 15:35:29 [facility] OFF[facility] BUILDING 1.20.114 350.1.13.10 4.2.7.2.686 [id number] 044 [id number] [facility] 2022-10-18 00:00:00 2022-10-18 00:00:00 Orders Only Doctor Unassigned, [place] [facility] 1.20.114 350.1.13.10 4.2.7.2.686 [id number] [facility] 2022-10-17 09:00:00 2022-10-17 09:15:00 Piping Drafter Visit Tech, [facility] Kalli Jefferson [facility] 1.0.114 350.1.13.10 4.2.7.2.686 [id number] [facility] 2022-10-17 09:00:00 2022-10-17 09:00:00 Outpatient R KALLI JEFFERSON STRAINYoung [facility] [id number] [facility] 2022-10-03 00:00:00 2022-10-03 00:00:00 Telephone Holly Fregoso [facility] 1.114 350.1.13.10 4.2.7.2.686 [id number] [facility] 2022-10-03 00:00:00 2022-10-03 00:00:00 Telephone Meghan Markham [facility] MEDICAL OFFICE BUILDING 1.114 350.1.13.10 4.2.7.2.686 [id number] [facility] 2022-10-02 00:00:00 2022-10-02 00:00:00 Refill Holly Fregoso [facility] 1.114 350.1.13.10 4.2.7.2.686 [id number] 044 [id number] [facility] 2022-10-01 00:00:00 2022-10-01 00:00:00 Refill Doctor Unassigned, [place] [facility] 1.0114 350.1.13.10 4.2.7.2.686 [id number] [id number] [facility] 2022-10-01 00:00:00 2022-10-01 00:00:00 Refill Doctor Unassigned, [place] [facility] 1.2.840.114 350.1.13.10 4.2.7.2.686 [id number] [facility] 2022-10-01 00:00:00 2022-10-01 00:00:00 Refill Radha Trinidad [facility] 1.2840.114 350.1.13.10 4.2.7.2.686 [id number] 311 [id number] [facility] 2022-09-21 11:00:00 2022-09-21 11:57:44 Outpatient R HOLLY FREGOSO [facility] [id number] [facility] 2022-09-21 11:00:00 2022-09-21 11:57:44 Office Visit Holly Fregoso [facility] MEDICAL OFFICE BUILDING 1.840.114 350.1.13.10 4.2.7.2.686 [id number] 044 [id number] [facility] 2022-09-21 08:00:00 2022-09-21 08:30:00 Office Visit Taylor Cortez [facility] MEDICAL OFFICE BUILDING 1.2.840.114 350.1.13.10 4.2.7.2.686 [id number] 044 [id number] [facility] 2022-09-21 08:00:00 2022-09-21 08:00:00 Outpatient R TAYLOR CORTEZ [facility] [id number] [facility] 2022-09-19 00:00:00 2022-09-19 00:00:00 Nurse Triage Lana Scott [facility] 1.2840.114 350.1.13.10 4.2.7.2.686 [id number] [facility] 2022-09-19 00:00:00 2022-09-19 00:00:00 [facility]phone [facility] 1.2.840.114 350.1.13.10 4.2.7.2.686 [id number] [id number] [facility] 2022-09-18 10:00:00 2022-09-18 10:30:00 Telemedici ne Visit Beth Parry [facility] 1.2.840.114 350.1.13.10 4.2.7.2.686 [id number] [id number] [facility] 2022-09-18 10:00:00 2022-09-18 10:00:00 Outpatient R BETH PARRY [facility] [id number] [facility] 2022-09-18 00:00:00 2022-09-18 00:00:00 Telephone [facility] 1.2.840.114 350.1.13.10 4.2.7.2.686 [id number] [id number] [facility] 2022-09-15 10:53:55 2022-09-15 23:59:00 Hospital Encounter [facility] 1.2.840.114 350.1.13.10 4.2.7.2.686 [id number] [facility] 2022-09-15 10:53:55 2022-09-15 23:59:00 Outpatient R PEYMAN [facility] [id number] [facility] 2022-09-15 10:30:00 2022-09-15 11:00:00 [facility] 1.2.840.114 350.1.13.10 4.2.7.2.686 [id number] [id number] [facility] 2022-09-13 09:30:00 2022-09-13 10:35:03 Outpatient R RICHA DOMINGUEZ YU [facility] [id number] [facility] 2022-09-13 09:30:00 2022-09-13 10:35:03 Office Visit Richa Dominguez [facility] 1.2.840.114 350.1.13.10 4.2.7.2.686 [id number] [facility] 2022-09-13 00:00:00 2022-09-13 00:00:00 Telephone Ez Palacio [facility] 1.2.840.114 350.1.13.10 4.2.7.2.686 [id number] [facility] 2022-09-13 00:00:00 2022-09-13 00:00:00 Telephone Curtis Morley [facility] 1.2.840.114 350.1.13.10 4.2.7.2.686 [id number] [id number] [facility] 2022-09-12 09:30:00 2022-09-12 10:14:05 Office Visit Argentina Mcdonald [facility] 1.2.840.114 350.1.13.10 4.2.7.2.686 [id number] 134 [id number] [facility] 2022-09-12 09:30:00 2022-09-12 10:14:05 Outpatient R ARGENTINA MCDONALD [facility] [id number] [facility] 2022-09-12 00:00:00 2022-09-12 00:00:00 Orders Only Doctor Unassigned, [place] [facility] 1.2.840.114 350.1.13.10 4.2.7.2.686 [id number] [facility] 2022-09-06 00:00:00 2022-09-06 00:00:00 Patient Secure Msg Tritschler, Cheryal [facility] 1..840.114 350.1.13.10 4.2.7.2.686 [id number] [facility] 2022-08-29 10:30:00 2022-08-29 10:30:00 Outpatient CURTIS HARRISON [facility] [id number] [facility] 2022-08-21 10:15:00 2022-08-21 10:15:00 Piping Drafter Visit Lab, Raj - Ish Donell [facility] MEDICAL OFFICE BUILDING 1..840.114 350.1.13.10 4.2.7.2.686 [id number] [facility] 2022-08-21 10:15:00 2022-08-21 10:09:08 Outpatient Annalee CHAMORRO [facility] [id number] [facility] 2022-08-21 09:30:00 2022-08-21 09:56:40 Office Visit Donell [facility]?KENNETH ALEJ[facility]DRA MEDICAL OFFICE BUILDING 1.2.840.114 350.1.13.10 4.2.7.2.686 [id number] [id number] [facility] 2022-08-17 13:00:00 2022-08-17 13:00:00 Outpatient R [facility] [id number] [facility] 2022-08-17 00:00:00 2022-08-17 00:00:00 Telephone Radha Trinidad [facility] 1..840.114 350.1.13.10 4.2.7.2.686 [id number] [facility] 2022-08-16 12:39:58 2022-08-16 23:59:00 Outpatient SKYLER DOUGHERTY HOWARD [facility] [id number] [facility] 2022-08-16 12:39:58 2022-08-16 23:59:00 Hospital Encounter Skyler Potter [facility] SPECIAL[facility] 1.2.840.114 350.1.13.10 4.2.7.2.686 [id number] [facility] 2022-08-16 00:00:00 2022-08-16 00:00:00 Radha Stafford [facility]ILY MED[facility] 1.2.840.114 350.1.13.10 4.2.7.2.686 [id number] [facility] 2022-08-15 11:30:00 2022-08-15 11:42:13 Outpatient R [facility] [id number] [facility] 2022-08-15 11:30:00 2022-08-15 11:42:13 Office Visit Bruce [facility] 1.2840.114 350.1.13.10 4.2.7.2.686 [id number] [facility] 2022-08-15 00:00:00 2022-08-15 00:00:00 Telephone Bruce [facility] 1.2.840.114 350.1.13.10 4.2.7.2.686 [id number] 134 [id number] [facility] 2022-08-03 12:45:00 2022-08-03 13:00:00 Piping Drafter Visit Lab, Raj - Ish Palacio [facility] TORRES PARKER?KENNETH KATEYALEJANDRA MEDICAL OFFICE BUILDING 1.2.840.114 350.1.13.10 4.2.7.2.686 [id number] [facility] 2022-08-03 12:45:00 2022-08-03 12:45:00 Outpatient R EZ PALACIO [facility] [id number] [facility] 2022-08-02 13:00:00 2022-08-02 13:55:50 Out[facility] [id number] [facility] 2022-08-02 13:00:00 2022-08-02 13:55:50 Office Visit Ez Palacio [facility] 1.840.114 350.1.13.10 4.2.7.2.686 [id number] [facility] 2022-07-26 08:50:28 2022-07-26 23:59:00 Outpatient R EZ PALACIO [facility] [id number] [facility] 2022-07-26 08:50:28 2022-07-26 23:59:00 Hospital Encounter Ez Palacio [facility] 1.840.114 350.1.13.10 4.2.7.2.686 [id number] [facility] 2022-07-26 00:00:00 2022-07-26 00:00:00 Telephone Skyler Potter [facility]?ANNEErna [facility] MEDICAL OFFICE BUILDING 1..840.114 350.1.13.10 4.2.7.2.686 [id number] [id number] [facility] 2022-07-24 09:20:00 2022-07-24 10:09:23 Outpatient R SKYLER POTTER HOWARD [facility] [id number] [facility] 2022-07-24 09:20:00 2022-07-24 10:09:23 Office Visit Skyler Potter [facility] MED[facility] OFF[facility] BUILD[facility] 1..840.114 350.1.13.10 4.2.7.2.686 [id number] [id number] [facility] 2022-07-19 00:00:00 2022-07-19 00:00:00 Telephone Ez Palacio [facility] 1.2.840.114 350.1.13.10 4.2.7.2.686 [id number] [facility] 2022-07-18 10:00:00 2022-07-18 11:06:06 Outpatient R BETH PARRY [facility] [id number] [facility] 2022-07-18 10:00:00 2022-07-18 11:06:06 Office Visit Beth Parry [facility] 1.2.840.114 350.1.13.10 4.2.7.2.686 [id number] [facility] 2022-07-17 10:45:00 2022-07-17 11:30:28 [facility] [id number] [facility] 2022-07-17 10:45:00 2022-07-17 11:30:28 Office Visit Ez Palacio [facility] 1.2.840.114 350.1.13.10 4.2.7.2.686 [id number] [facility] 2022-07-13 00:00:00 2022-07-13 00:00:[address] [facility] AND [facility] 1.2.840.114 350.1.13.10 4.2.7.2.686 [id number] [facility] 2022-07-11 00:00:00 2022-07-11 00:00:[address] [facility] 1.2840.114 350.1.13.10 4.2.7.2.686 [id number] [facility] 2022-07-04 00:00:00 2022-07-04 00:00:00 Radha Stafford [facility] 1.2.840.114 350.1.13.10 4.2.7.2.686 [id number] [facility] 2022-07-03 11:18:25 2022-07-03 23:59:00 Outpatient R CAMILO CORLEY [facility] [id number] [facility] 2022-07-03 00:00:00 2022-07-03 00:00:[address] [facility] 1.840.114 350.1.13.10 4.2.7.2.686 [id number] [facility] 2022-06-30 14:31:25 2022-06-30 23:59:00 Hospital Encounter Curtis Morley [facility] 1.0.114 350.1.13.10 4.2.7.2.686 [id number] [facility] 2022-06-30 14:00:00 2022-06-30 14:30:00 Office Visit Curtis Morley [facility] 1.0.114 350.1.13.10 4.2.7.2.686 [id number] [facility] 2022-06-30 14:00:00 2022-06-30 14:00:00 Outpatient R CURTIS MORLEY [facility] [id number] [facility] 2022-06-28 00:00:00 2022-06-28 00:00:[address] [facility] 1.0.114 350.1.13.10 4.2.7.2.686 [id number] [id number] [facility] 2022-06-27 00:00:00 2022-06-27 00:00:00 Radha Stafford [facility] 1.2840.114 350.1.13.10 4.2.7.2.686 [id number] [facility] 2022-06-21 00:00:00 2022-06-21 00:00:00 Patient Secure Msg Aayush [facility] 1.20.114 350.1.13.10 4.2.7.2.686 [id number] [facility] 2022-06-20 11:45:00 2022-06-20 12:00:00 Piping Drafter Visit Lab, [facility] 1..114 350.1.13.10 4.2.7.2.686 [id number] [facility] 2022-06-20 10:00:00 2022-06-20 10:51:04 Outpatient Annalee MCDONALD [facility] [id number] [facility] 2022-06-20 10:00:00 2022-06-20 10:51:04 Office Visit Aayush [facility] 1.2.114 350.1.13.10 4.2.7.2.686 [id number] [facility] 2022-06-16 00:00:00 2022-06-16 00:00:00 Orders Only Doctor Unassigned, [place] [facility] 1.2840.114 350.1.13.10 4.2.7.2.686 [id number] [facility] 2022-06-09 10:15:00 2022-06-09 11:34:49 Outpatient CAMILO ISRAEL [facility] [id number] [facility] 2022-06-09 10:15:00 2022-06-09 11:34:49 Office Visit RadhaCamilo Cherry [facility] 1.2.840.114 350.1.13.10 4.2.7.2.686 [id number] [facility] 2022-05-22 00:00:00 2022-05-22 00:00:00 Refill Doctor Unassigned, [place] [facility] 1.2.840.114 350.1.13.10 4.2.7.2.686 [id number] [facility] 2022-05-21 00:00:00 2022-05-21 00:00:00 Refill Radha Trinidad [facility] 1.2.840.114 350.1.13.10 4.2.7.2.686 [id number] [facility] 2022-05-17 00:00:00 2022-05-17 00:00:00 Telephone Curtis Morley [facility] 1.2.840.114 350.1.13.10 4.2.7.2.686 [id number] [id number] [facility] 2022-05-17 00:00:00 2022-05-17 00:00:[address] [facility] 1.2.840.114 350.1.13.10 4.2.7.2.686 [id number] 011 [id number] [facility] 2022-05-17 00:00:00 2022-05-17 00:00:00 Telephone Radha Trinidad [facility] 1.2.840.114 350.1.13.10 4.2.7.2.686 [id number] 311 [id number] [facility] 2022-05-16:00:00 2022-05-16 11:13:48 Outpatient R CURTIS MORLEY [facility] [id number] [facility] 2022-05-16 10:00:00 2022-05-16 11:13:48 [facility] 1.840.114 350.1.13.10 4.2.7.2.686 [id number] [id number] [facility] 2022-05-10 00:00:00 2022-05-10 00:00:00 Patient Secure Msg Doctor Unassigned, [place] [facility] 1.840.114 350.1.13.10 4.2.7.2.686 [id number] 311 [id number] [facility] 2022-05-08 09:15:00 2022-05-08 09:30:00 Piping Drafter Visit Lab, [facility] [address] Radha Trinidad [facility] 1.840.114 350.1.13.10 4.2.7.2.686 [id number] 311 [id number] [facility] 2022-05-08 09:15:00 2022-05-08 09:15:00 Outpatient R RADHA TRINIDAD [facility] [id number] [facility] 2022-05-04 00:00:00 2022-05-04 00:00:00 Telephone Radha Trinidad [facility] 1.0.114 350.1.13.10 4.2.7.2.686 [id number] 311 [id number] [facility] 2022-05-01 00:00:00 2022-05-01 00:00:00 Curtis Iniguez [facility] 1.840.114 350.1.13.10 4.2.7.2.686 [id number] [id number] [facility] 2022-04-28 00:00:00 2022-04-28 00:00:00 Refill Marilu [facility] 1.2.840.114 350.1.13.10 4.2.7.2.686 [id number] [facility] 2022-04-26 00:00:00 2022-04-26 00:00:00 Telephone BirdRadha [facility] 1.2.840.114 350.1.13.10 4.2.7.2.686 [id number] 311 [id number] [facility] 2022-04-21 00:00:00 2022-04-21 00:00:00 Patient Secure Msg Bird [facility] 1.2.840.114 350.1.13.10 4.2.7.2.686 [id number] 311 [id number] [facility] 2022-04-21 00:00:00 2022-04-21 00:00:00 Refill Marilu [facility] 1.2.840.114 350.1.13.10 4.2.7.2.686 [id number] [facility] 2022-04-21 00:00:00 2022-04-21 00:00:00 Refill Doctor Unassigned, [place] [facility] 1.2.840.114 350.1.13.10 4.2.7.2.686 [id number] 311 [id number] [facility] 2022-04-21 00:00:00 2022-04-21 00:00:00 Refill Ashley Raines [facility] 1.2.840.114 350.1.13.10 4.2.7.2.686 [id number] [facility] 2022-04-18 14:00:00 2022-04-18 14:30:00 Telemedici ne Visit TrinidadRadha vidal [facility] 1.2.840.114 350.1.13.10 4.2.7.2.686 [id number] 311 [id number] [facility] 2022-04-18 14:00:00 2022-04-18 14:00:00 Outpatient Annalee TRINIDADRADHA [facility] [id number] [facility] 2022-04-18 14:00:00 2022-04-18 14:00:00 Outpatient RADHA GUPTA [facility] [id number] [facility] 2022-04-18 10:00:00 2022-04-18 10:00:00 Outpatient RADHA GUPTA [facility] [id number] [facility] 2022-04-17 00:00:00 2022-04-17 00:00:00 Honey OrantesRadha vidal [facility] 1.2.840.114 350.1.13.10 4.2.7.2.686 [id number] 311 [id number] [facility] 2022-04-13 00:00:00 2022-04-13 00:00:00 Refjo-ann TrinidadRadha vidal [facility] 1.2.840.114 350.1.13.10 4.2.7.2.686 [id number] 311 [id number] [facility] 2022-04-05 00:00:00 2022-04-05 00:00:00 Orders Only Doctor Unassigned, [place] [facility] 1.2.840.114 350.1.13.10 4.2.7.2.686 [id number] 009 [id number] [facility] 2022-03-26 00:00:00 2022-03-26 00:00:00 Refjo-ann Radha Trinidad [facility] 1.2.840.114 350.1.13.10 4.2.7.2.686 [id number] 311 [id number] [facility] 2022-03-26 00:00:00 2022-03-26 00:00:00 Refjo-ann Michel Azalia [facility] 1.2.840.114 350.1.13.10 4.2.7.2.686 [id number] 408 [id number] [facility] 2022-03-13 00:00:00 2022-03-13 00:00:00 Orders Only Doctor Unassigned, [place] [facility] 1.2.840.114 350.1.13.10 4.2.7.2.686 [id number] [id number] [facility] 2022-03-10 00:00:00 2022-03-10 00:00:00 Telephone Radha Trinidad [facility] 1.2.840.114 350.1.13.10 4.2.7.2.686 [id number] 311 [id number] [facility] 2022-03-08 00:00:00 2022-03-08 00:00:00 Telephone Marilu Azalia [facility] 1.2.840.114 350.1.13.10 4.2.7.2.686 [id number] 408 [id number] [facility] 2022-03-08 00:00:00 2022-03-08 00:00:00 Telephone Radha Trinidad [facility] 1.2.840.114 350.1.13.10 4.2.7.2.686 [id number] 311 [id number] [facility] 2022-03-07 14:00:00 2022-03-07 14:00:00 Outpatient R MARILU AZALIA [facility] [id number] [facility] 2022-03-07 00:00:00 2022-03-07 00:00:00 Telephone Radha Trinidad [facility] 1.2.840.114 350.1.13.10 4.2.7.2.686 [id number] 311 [id number] [facility] 2022-03-05 00:00:00 2022-03-05 00:00:00 Radha Stafford [facility] 1.2.840.114 350.1.13.10 4.2.7.2.686 [id number] 311 [id number] [facility] 2022-02-28 00:00:00 2022-02-28 00:00:00 Patient Secure Msg Doctor Unassigned, [place] [facility] 1.2.840.114 350.1.13.10 4.2.7.2.686 [id number] 311 [id number] [facility] 2022-02-13 00:00:00 2022-02-13 00:00:00 Radha Stafford [facility] 1.2.840.114 350.1.13.10 4.2.7.2.686 [id number] 311 [id number] [facility] 2022-02-10 00:00:00 2022-02-10 00:00:00 Honey Radha Trinidad [facility] 1.2.840.114 350.1.13.10 4.2.7.2.686 [id number] 311 [id number] [facility] 2022-02-10 00:00:00 2022-02-10 00:00:00 Solis Radha Trinidad [facility] 1.2.840.114 350.1.13.10 4.2.7.2.686 [id number] 311 [id number] [facility] 2022-02-09 00:00:00 2022-02-09 00:00:00 Radha Stafford [facility] 1.2.840.114 350.1.13.10 4.2.7.2.686 [id number] 311 [id number] [facility] 2022-02-09 00:00:00 2022-02-09 00:00:00 Refill Marilu [facility] 1.2840.114 350.1.13.10 4.2.7.2.686 [id number] 408 [id number] [facility] 2022-01-24 14:00:00 2022-01-24 14:15:00 Office Visit Marilu [facility] 1.2840.114 350.1.13.10 4.2.7.2.686 [id number] [facility] 2022-01-24 14:00:00 2022-01-24 14:00:00 Outpatient Annalee AZALIA MICHEL [facility] [id number] [facility] 2022-01-24 14:00:00 2022-01-24 14:00:00 [facility] [id number] 2022-01-24 14:00:00 2022-01-24 14:00:00 [facility] R [facility] [id number] [facility] 2022-01-24 14:00:00 2022-01-24 14:00:00 [facility] [id number] [facility] 2022-01-24 00:00:00 2022-01-24 00:00:00 Patient Secure Msg Doctor Unassigned, [place] [facility] 1.2.840.114 350.1.13.10 4.2.7.2.686 [id number] 311 [id number] [facility] 2022-01-24 00:00:00 2022-01-24 00:00:00 Patient Secure Msg Radha Trinidad [facility] 1.2.840.114 350.1.13.10 4.2.7.2.686 [id number] 311 [id number] [facility] 2022-01-21 00:00:00 2022-01-21 00:00:00 Patient Secure Msg Doctor Unassigned, [place] [facility] 1.2.840.114 350.1.13.10 4.2.7.2.686 [id number] [id number] [facility] 2022-01-20 00:00:00 2022-01-20 00:00:00 Telephone Radha Trinidad [facility] 1.2.840.114 350.1.13.10 4.2.7.2.686 [id number] 311 [id number] [facility] 2022-01-20 00:00:00 2022-01-20 00:00:00 Telephone Radha Trinidad [facility] 1.2.840.114 350.1.13.10 4.2.7.2.686 [id number] 311 [id number] [facility] 2022-01-16 15:00:00 2022-01-16 15:30:00 Office Visit Radha Trinidad [facility] 1.2.840.114 350.1.13.10 4.2.7.2.686 [id number] 311 [id number] [facility] 2022-01-16 15:00:00 2022-01-16 15:00:00 Outpatient R RADHA TRINIDAD [facility] [id number] [facility] 2022-01-16 00:00:00 2022-01-16 00:00:00 Catalina Alvarez [facility] 1.2.840.114 350.1.13.10 4.2.7.2.686 [id number] 311 [id number] [facility] 2022-01-04 00:00:00 2022-01-04 00:00:00 Patient Secure Msg Doctor Unassigned, [place] [facility] 1.2840.114 350.1.13.10 4.2.7.2.686 [id number] 011 [id number] [facility] 2022-01-04 00:00:00 2022-01-04 00:00:00 RefCurtis Barber [facility] 1.2840.114 350.1.13.10 4.2.7.2.686 [id number] 011 [id number] [facility] 2022-01-04 00:00:00 2022-01-04 00:00:00 Solis TrinidadRadha vidal [facility] 1.2840.114 350.1.13.10 4.2.7.2.686 [id number] 311 [id number] [facility] 2021-12-21 00:00:00 2021-12-21 00:00:00 Honey Michel [facility] 1.0.114 350.1.13.10 4.2.7.2.686 [id number] 408 [id number] [facility] 2021-12-20 14:30:00 2021-12-20 14:30:00 Outpatient R MARILU AZALIA [facility] [id number] [facility] 2021-12-07 00:00:00 2021-12-07 00:00:00 Radha Stafford [facility] 1.840.114 350.1.13.10 4.2.7.2.686 [id number] 311 [id number] [facility] 2021-11-29 00:00:00 2021-11-29 00:00:00 Patient Secure Radha Granados [facility] 1.2840.114 350.1.13.10 4.2.7.2.686 [id number] 311 [id number] [facility] 2021-11-22 16:00:00 2021-11-22 16:15:00 Telemedici ne Visit Marilu [facility] 1.2840.114 350.1.13.10 4.2.7.2.686 [id number] [facility] 2021-11-22 16:00:00 2021-11-22 16:00:00 Outpatient Annalee MICHEL AZALIA [facility] [id number] [facility] 2021-11-22 16:00:00 2021-11-22 16:00:00 Outpatient Annalee MICHEL [facility] [id number] [facility] 2021-11-22 00:00:00 2021-11-22 00:00:00 Telephone Radha Trinidad [facility] 1.2.840.114 350.1.13.10 4.2.7.2.686 [id number] 311 [id number] [facility] 2021-11-22 00:00:00 2021-11-22 00:00:00 Telephone Marilu [facility] 1.2.840.114 350.1.13.10 4.2.7.2.686 [id number] 408 [id number] [facility] 2021-11-20 00:00:00 2021-11-20 00:00:00 Telephone [facility] 1.2.840.114 350.1.13.10 4.2.7.2.686 [id number] 408 [id number] [facility] 2021-11-20 00:00:00 2021-11-20 00:00:00 [facility] 1.2.840.114 350.1.13.10 4.2.7.2.686 [id number] 408 [id number] [facility] 2021-11-20 00:00:00 2021-11-20 00:00:00 Telephone Byron Berry [facility] 1.2.840.114 350.1.13.10 4.2.7.2.686 [id number] [facility] 2021-11-15 08:45:00 2021-11-15 08:45:00 Outpatient R CAMILO CORLEY [facility] [id number] [facility] 2021-11-15 08:45:00 2021-11-15 08:45:00 Outpatient R CAMILO CORLEY [facility] [id number] [facility] 2021-11-14 10:46:00 2021-11-14 15:24:00 Outpatient R MARILU AZALIA [facility] C[facility] [id number] [facility] 2021-11-14 10:46:00 2021-11-14 15:24:00 Hospital Encounter Marilu Azalia [facility] 1.2840.114 350.1.13.10 4.2.7.2.686 [id number] [id number] [facility] 2021-11-14 11:43:00 2021-11-14 13:33:00 Surgery Marilu [facility] 1.840.114 350.1.13.10 4.2.7.2.686 [id number] [facility] 2021-11-11 14:00:00 2021-11-11 14:15:00 Laboratory Only Only, Adc Test Marilu Azalia [facility] 1.2840.114 350.1.13.10 4.2.7.2.686 [id number] [facility] 2021-11-11 14:00:00 2021-11-11 14:00:00 Outpatient R MARILU AZALIA [facility] [id number] [facility] 2021-11-08 14:15:00 2021-11-08 14:30:00 Office Visit Marilu [facility] 1.840.114 350.1.13.10 4.2.7.2.686 [id number] [facility] 2021-11-08 14:15:00 2021-11-08 14:15:00 Outpatient AZALIA ORELLANA [facility] [id number] [facility] 2021-11-08 00:00:00 2021-11-08 00:00:00 Radha Stafford [facility] 1..840.114 350.1.13.10 4.2.7.2.686 [id number] 311 [id number] [facility] 2021-11-04 11:00:00 2021-11-04 11:00:00 Outpatient AZALIA ORELLANA [facility] [id number] [facility] 2021-10-26 00:00:00 2021-10-26 00:00:00 Patient Secure Curtis Figueroa [facility] 1.840.114 350.1.13.10 4.2.7.2.686 [id number] [id number] [facility] 2021-10-22 00:00:00 2021-10-22 00:00:00 Radha Stafford [facility] 1..840.114 350.1.13.10 4.2.7.2.686 [id number] 311 [id number] [facility] 2021-10-17 09:30:00 2021-10-17 09:30:00 Outpatient CURTIS HARRISON [facility] [id number] [facility] 2021-10-05 11:30:00 2021-10-05 11:30:00 Outpatient SKYLER DOUGHERTY HOWARD [facility] [id number] [facility] 2021-10-05 00:00:00 2021-10-05 00:00:00 Radha Stafford [facility] 1..840.114 350.1.13.10 4.2.7.2.686 [id number] 311 [id number] [facility] 2021-09-29 08:30:00 2021-09-29 08:30:00 Outpatient CURTIS HARRISON [facility] [id number] [facility] 2021-09-29 08:30:00 2021-09-29 08:30:00 Outpatient CURTIS HARRISON [facility] [id number] [facility] 2021-09-29 08:30:00 2021-09-29 08:30:00 Outpatient CURTIS HARRISON [facility] [id number] [facility] 2021-09-16 14:30:00 2021-09-16 14:30:00 Outpatient RADHA GUPTA [facility] [id number] [facility] 2021-09-16 14:30:00 2021-09-16 14:30:00 Outpatient RADHA GUPTA [facility] [id number] [facility] 2021-09-15 00:00:00 2021-09-15 00:00:00 Curtis Iniguez [facility] 1.840.114 350.1.13.10 4.2.7.2.686 [id number] [id number] [facility] 2021-09-06 09:00:00 2021-09-06 09:30:00 Office Visit Radha Trinidad [facility] 1..840.114 350.1.13.10 4.2.7.2.686 [id number] 311 [id number] [facility] 2021-09-06 09:00:00 2021-09-06 09:00:00 Outpatient RADHA GUPTA [facility] [id number] [facility] 2021-09-06 09:00:00 2021-09-06 09:00:00 Outpatient RADHA GUPTA [facility] [id number] [facility] 2021-09-06 00:00:00 2021-09-06 00:00:00 Orders Only Doctor Unassigned, [place] [facility] 1.2.840.114 350.1.13.10 4.2.7.2.686 [id number] [facility] 2021-09-06 00:00:00 2021-09-06 00:00:00 Telephone Curtis Morley [facility] 1.2.840.114 350.1.13.10 4.2.7.2.686 [id number] [id number] [facility] 2021-09-01 00:00:00 2021-09-01 00:00:00 Refill Radha Trinidad [facility] 1.2.840.114 350.1.13.10 4.2.7.2.686 [id number] 311 [id number] [facility] 2021-08-10 00:00:00 2021-08-10 00:00:00 Refill Ashley Raines [facility] 1.2.840.114 350.1.13.10 4.2.7.2.686 [id number] 370 [id number] [facility] 2021-08-03 00:00:00 2021-08-03 00:00:00 Refjo-ann Trinidad Radha [facility] 1.2.840.114 350.1.13.10 4.2.7.2.686 [id number] 311 [id number] [facility] 2021-08-03 00:00:00 2021-08-03 00:00:00 Refill Radha Trinidad [facility] 1.2.840.114 350.1.13.10 4.2.7.2.686 [id number] 311 [id number] [facility] 2021-08-02 00:00:00 2021-08-02 00:00:00 Radha Stafford [facility] 1.2.840.114 350.1.13.10 4.2.7.2.686 [id number] 311 [id number] [facility] 2021-08-02 00:00:00 2021-08-02 00:00:00 Mague Ruvalcabaeen [facility] 1.2.840.114 350.1.13.10 4.2.7.2.686 [id number] 370 [id number] [facility] 2021-08-02 00:00:00 2021-08-02 00:00:00 RefNew Madsen [facility]TY [facility] 1.2.840.114 350.1.13.10 4.2.7.2.686 [id number] [facility] 2021-08-02 00:00:00 2021-08-02 00:00:00 Catalina Alvarez [facility] 1.2.840.114 350.1.13.10 4.2.7.2.686 [id number] 311 [id number] [facility] 2021-08-01 00:00:00 2021-08-01 00:00:00 Telephone Rene Olvera [facility]PEC [facility]TY [facility] 1.2.840.114 350.1.13.10 4.2.7.2.686 [id number] [id number] [facility] 2021-07-29 12:53:28 2021-07-29 23:59:00 Hospital Encounter Curtis Morley [facility] 1.2.840.114 350.1.13.10 4.2.7.2.686 [id number] [facility] 2021-07-29 12:53:28 2021-07-29 23:59:00 Outpatient R CURTIS MORLEY [facility] [id number] [facility] 2021-07-29 13:30:00 2021-07-29 14:00:00 Office Visit Curtis Morley [facility] 1.2.840.114 350.1.13.10 4.2.7.2.686 [id number] [facility] 2021-07-29 13:30:00 2021-07-29 13:30:00 Outpatient Annalee CURTIS MORLEY [facility] [id number] [facility] 2021-07-28 00:00:00 2021-07-28 00:00:00 [facility] 1.2.840.114 350.1.13.10 4.2.7.2.686 [id number] [facility] 2021-07-27 00:00:00 2021-07-27 00:00:00 Telephone Curtis Morley [facility] IALTY [place] [facility] 1.2.840.114 350.1.13.10 4.2.7.2.686 [id number] [id number] [facility] 2021-07-20 16:45:00 2021-07-20 17:37:40 Outpatient SAMINA BLACK [facility] [id number] [facility] 2021-07-20 16:19:24 2021-07-20 17:37:40 Urgent Care Samina Ferrera A Unknown, Attending [facility] 1.2.840.114 350.1.13.10 4.2.7.2.686 [id number] [facility] 2021-07-05 10:00:00 2021-07-05 10:00:00 Outpatient CURTIS HARRISON [facility] [id number] [facility] 2021-07-01 16:00:00 2021-07-01 14:32:17 Outpatient SAMINA BLACK [facility] [id number] [facility] 2021-07-01 11:41:16 2021-07-01 11:56:16 Nurse Visit Nurse, Anthony Adult Urgent Unknown, Attending [facility] 1..114 350.1.13.10 4.2.7.2.686 [id number] [facility] 2021-06-30 00:00:00 2021-06-30 00:00:00 Telephone Curtis Morley [facility] 1.114 350.1.13.10 4.2.7.2.686 [id number] [facility] 2021-06-28 10:23:31 2021-06-28 11:23:31 Nurse Visit Therapy, Tejinder Calloway [facility] 1.114 350.1.13.10 4.2.7.2.686 [id number] [facility] 2021-06-28 10:30:00 2021-06-28 10:30:00 Outpatient TEJINDER DUARTE [facility] [id number] [facility] 2021-06-27 09:00:00 2021-06-27 09:00:00 Outpatient RADHA GUPTA [facility] [id number] [facility] 2021-06-27 08:22:01 2021-06-27 08:52:01 Telemedici ne Visit Radha Trinidad [facility] 1..114 350.1.13.10 4.2.7.2.686 [id number] 311 [id number] [facility] 2021-06-25 09:06:44 2021-06-25 09:55:18 Urgent Care Ashley Raines Unknown, Attending [facility] 1..114 350.1.13.10 4.2.7.2.686 [id number] 370 [id number] [facility] 2021-06-25 09:00:00 2021-06-25 09:55:18 Outpatient R ASHLEY RAINES [facility] [id number] [facility] 2021-06-06 17:12:40 2021-06-06 17:50:36 Urgent Care Jacob bellamy [place] Unknown, Attending [facility] 1.2.840.114 350.1.13.10 4.2.7.2.686 [id number] 370 [id number] [facility] 2021-06-06 17:15:00 2021-06-06 17:15:00 Outpatient R UNKNOWN, ATTENDING [facility] [id number] [facility] 2021-06-06 00:00:00 2021-06-06 00:00:00 [facility] 1.2.840.114 350.1.13.10 4.2.7.2.686 [id number] [facility] 2021-06-04 00:00:00 2021-06-04 00:00:00 Radha Stafford [facility] 1.2.840.114 350.1.13.10 4.2.7.2.686 [id number] 311 [id number] [facility] 2021-05-31 00:00:00 2021-05-31 00:00:00 Radha Stafford [facility] 1.2.840.114 350.1.13.10 4.2.7.2.686 [id number] 311 [id number] [facility] 2021-05-20 00:00:00 2021-05-20 00:00:00 Telephone Curtis Morley [facility] 1.2840.114 350.1.13.10 4.2.7.2.686 [id number] [facility] 2021-05-03 09:27:09 2021-05-03 09:42:09 Piping Drafter Visit Lab, [facility] Stew Barrington Peck [facility] 1.2.840.114 350.1.13.10 4.2.7.2.686 [id number] 311 [id number] [facility] 2021-05-03 09:27:09 2021-05-03 09:42:09 Piping Drafter Visit Lab, [facility] Barrington Peck [facility] 1.2.840.114 350.1.13.10 4.2.7.2.686 [id number] 311 [id number] [facility] 2021-05-03 08:00:00 2021-05-03 08:00:00 Outpatient CATALINA BARNHART [facility] [id number] [facility] 2021-04-28 14:00:00 2021-04-28 14:00:00 Outpatient CURTIS HARRISON [facility] [id number] [facility] 2021-04-28 00:00:00 2021-04-28 00:00:00 Telephone Curtis Morley [facility] 1.2.840.114 350.1.13.10 4.2.7.2.686 [id number] [facility] 2021-04-25 15:41:06 2021-04-25 16:11:06 Office Visit Catalina Mendez [facility] 1.2.840.114 350.1.13.10 4.2.7.2.686 [id number] 311 [id number] [facility] 2021-04-25 13:30:00 2021-04-25 13:30:00 Outpatient CATALINA BARNHART [facility] [id number] [facility] 2021-04-19 11:30:00 2021-04-19 11:30:00 Outpatient HEATH PAPPAS [facility] [id number] [facility] 2021-04-16 00:00:00 2021-04-16 00:00:00 Radha Stafford [facility] 1.2.840.114 350.1.13.10 4.2.7.2.686 [id number] 311 [id number] [facility] 2021-04-16 00:00:00 2021-04-16 00:00:00 Radha Stafford [facility] 1.2.840.114 350.1.13.10 4.2.7.2.686 [id number] 311 [id number] [facility] 2021-03-29 16:04:00 2021-03-29 23:55:00 Emergency Brady Ivy Pedram [facility] 1.2.840.114 350.1.13.10 4.2.7.2.686 [id number] [facility] 2021-03-28 00:00:00 2021-03-28 00:00:00 Patient Secure Msg Doctor Unassigned, [place] [facility] 1.2.840.114 350.1.13.10 4.2.7.2.686 [id number] [facility] 2021-03-28 00:00:00 2021-03-28 00:00:00 Letter (Out) Norma Parker [facility] 1.2.840.114 350.1.13.10 4.2.7.2.686 [id number] [facility] 2021-03-27 00:00:00 2021-03-27 00:00:00 Telephone Samina Ferrera [facility] 1.2.840.114 350.1.13.10 4.2.7.2.686 [id number] [facility] 2021-03-26 16:32:41 2021-03-26 18:13:07 Urgent Care Samina Ferrera [facility] 1.2.840.114 350.1.13.10 4.2.7.2.686 [id number] [facility] 2021-03-26 16:30:00 2021-03-26 16:30:00 Outpatient SAMINA BLACK [facility] [id number] [facility] 2021-03-25 08:00:00 2021-03-25 08:00:00 Outpatient CURTIS HARRISON [facility] [id number] [facility] 2021-03-24 15:42:41 2021-03-24 16:12:41 Telemedici ne Visit New Carrasco [facility] 1.840.114 350.1.13.10 4.2.7.2.686 [id number] [facility] 2021-03-24 16:00:00 2021-03-24 16:00:00 Outpatient NEW BLACK [facility] [id number] [facility] 2021-03-24 09:30:00 2021-03-24 09:30:00 Outpatient CURTIS HARRISON [facility] [id number] [facility] 2021-03-24 00:00:00 2021-03-24 00:00:00 Telephone Curtis Morley [facility] 1.840.114 350.1.13.10 4.2.7.2.686 [id number] [facility] 2021-03-21 14:56:09 2021-03-21 15:11:09 Piping Drafter Visit Vtc-Lab [place] [facility] 1.840.114 350.1.13.10 4.2.7.2.686 [id number] [facility] 2021-03-21 14:45:00 2021-03-21 14:45:00 Outpatient NEW BLACK [facility] [id number] [facility] 2021-03-21 00:00:00 2021-03-21 00:00:00 Telephone Curtis Morley [facility] 1..114 350.1.13.10 4.2.7.2.686 [id number] [id number] [facility] 2021-03-04 00:00:00 2021-03-04 00:00:00 Patient Secure MsNew Martin [facility] 1..114 350.1.13.10 4.2.7.2.686 [id number] [facility] 2021-03-02 00:00:00 2021-03-02 00:00:00 Refill Radha Trinidad [facility] 1.84.114 350.1.13.10 4.2.7.2.686 [id number] 311 [id number] [facility] 2021-02-22 13:46:43 2021-02-22 14:41:46 Office Visit [place] 1..114 350.1.13.10 4.2.7.2.686 [id number] [id number] [facility] 2021-02-22 14:00:00 2021-02-22 14:00:00 Outpatient R NEW CARRASCO [facility] [id number] [facility] 2021-02-16 00:00:00 2021-02-16 00:00:00 Telephone Radha Trinidad [facility] 1.84.114 350.1.13.10 4.2.7.2.686 [id number] 311 [id number] [facility] 2021-02-12 13:51:08 2021-02-12 15:01:56 Urgent Care Care, Gal Adult Urgent Unknown, Attending Ashley Raines [facility] [place] 1.2.840.114 350.1.13.10 4.2.7.2.686 [id number] 370 [id number] [facility] 2021-02-12 13:45:00 2021-02-12 13:45:00 Outpatient R NAZANIN FOX [facility] [id number] [facility] 2021-02-12 00:00:00 2021-02-12 00:00:[address] [facility] 1.840.114 350.1.13.10 4.2.7.2.686 [id number] [facility] 2021-02-11 00:00:00 2021-02-11 00:00:00 Telephone Radha Trinidad [facility] 1.840.114 350.1.13.10 4.2.7.2.686 [id number] 311 [id number] [facility] 2021-02-08 09:00:00 2021-02-08 09:00:00 Outpatient R CURTIS MORLEY [facility] [id number] [facility] 2021-02-08 00:00:00 2021-02-08 00:00:00 Telephone Radha Trinidad [facility] 1.840.114 350.1.13.10 4.2.7.2.686 [id number] 311 [id number] [facility] 2021-02-01 00:00:00 2021-02-01 00:00:00 [facility] 1.840.114 350.1.13.10 4.2.7.2.686 [id number] 011 [id number] [facility] 2021-01-31 00:00:00 2021-01-31 00:00:00 Orders Only Doctor Unassigned, [place] [facility] 1.840.114 350.1.13.10 4.2.7.2.686 [id number] [facility] 2021-01-30 00:00:00 2021-01-30 00:00:00 Chan Suarez [facility] 1.2.840.114 350.1.13.10 4.2.7.2.686 [id number] [facility] 2021-01-30 00:00:00 2021-01-30 00:00:00 Radha Stafford [facility] 1.2.840.114 350.1.13.10 4.2.7.2.686 [id number] [facility] 2021-01-25 13:30:00 2021-01-25 13:30:00 Outpatient RADHA GUPTA [facility] [id number] [facility] 2021-01-24 15:50:41 2021-01-24 16:59:23 Office Visit Radha Trinidad [facility] 1.2.840.114 350.1.13.10 4.2.7.2.686 [id number] [facility] 2021-01-24 16:00:00 2021-01-24 16:00:00 Outpatient RADHA GUPTA [facility] [id number] [facility] 2021-01-20 09:00:00 2021-01-20 09:00:00 Outpatient RADHA GUPTA [facility] [id number] [facility] 2021-01-11 09:30:00 2021-01-11 09:30:00 Outpatient CURTIS HARRISON [facility] [id number] [facility] 2021-01-07 11:30:00 2021-01-07 11:30:00 Outpatient AZALIA ORELLANA [facility] [id number] [facility] 2021-01-05 00:00:00 2021-01-05 00:00:00 Telephone Radha Trinidad [facility] 1.2.840.114 350.1.13.10 4.2.7.2.686 [id number] 311 [id number] [facility] 2021-01-03 00:00:00 2021-01-03 00:00:00 Patient Secure Msg Mar[facility] 1.2.840.114 350.1.13.10 4.2.7.2.686 [id number] [facility] 2020-12-31 00:00:00 2020-12-31 00:00:00 Patient Secure Msg Doctor Unassigned, [place] [facility] 1.2.840.114 350.1.13.10 4.2.7.2.686 [id number] [facility] 2020-12-31 00:00:00 2020-12-31 00:00:00 Refill Doctor Unassigned, [place] [facility] 1.2.840.114 350.1.13.10 4.2.7.2.686 [id number] [facility] 2020-12-31 00:00:00 2020-12-31 00:00:00 Refill Cait Sainz [facility] 1.2.840.114 350.1.13.10 4.2.7.2.686 [id number] 311 [id number] [facility] 2020-12-31 00:00:00 2020-12-31 00:00:00 Refill Doctor Unassigned, [place] [facility] 1.2.840.114 350.1.13.10 4.2.7.2.686 [id number] 311 [id number] [facility] 2020-12-30 17:19:08 2020-12-30 17:34:08 Urgent Care Monika Summers Unknown, Attending [facility] 1.114 350.1.13.10 4.2.7.2.686 [id number] 370 [id number] [facility] 2020-12-30 17:15:00 2020-12-30 17:15:00 Outpatient R UNKNOWN, ATTENDING [facility] [id number] [facility] 2020-12-24 10:30:00 2020-12-24 10:30:00 Outpatient R AZALIA MICHEL [facility] [id number] [facility] 2020-12-24 00:00:00 2020-12-24 00:00:00 Orders Only Doctor Unassigned, [place] [facility] 1.114 350.1.13.10 4.2.7.2.686 [id number] [facility] 2020-12-21 09:12:04 2020-12-21 10:15:32 [facility] 1.114 350.1.13.10 4.2.7.2.686 [id number] 011 [id number] [facility] 2020-12-21 09:30:00 2020-12-21 09:30:00 Outpatient R CURTIS MORLEY [facility] [id number] [facility] 2020-12-20 00:00:00 2020-12-20 00:00:00 [facility]phone [facility] 1.114 350.1.13.10 4.2.7.2.686 [id number] [id number] [facility] 2020-12-14 08:55:44 2020-12-14 08:56:16 Office Visit Camilo Corley [facility] [employer] [facility] 1..114 350.1.13.10 4.2.7.2.686 [id number] [facility] 2020-12-14 08:15:00 2020-12-14 08:15:00 Outpatient R CAMILO CORLEY [facility] [id number] [facility] 2020-12-14 07:58:10 2020-12-14 08:13:10 Office Visit Camilo Corley [facility] 08.14.840.114 350.1.13.10 4.2.7.2.686 [id number] [facility] 2020-12-14 08:00:00 2020-12-14 08:00:00 Outpatient R CAMILO CORLEY [facility] [id number] [facility] 2020-12-13 11:00:00 2020-12-13 11:00:00 Outpatient R EMILY OBRIEN [facility] [id number] [facility] 2020-12-08 00:00:00 2020-12-08 00:00:00 Patient Secure Msg Doctor Unassigned, [place] [facility] 1.840.114 350.1.13.10 4.2.7.2.686 [id number] [facility] 2020-12-03 08:06:52 2020-12-03 09:07:25 Office Visit Jordan [facility] Resident Jenny Avila [facility] 1.84.114 350.1.13.10 4.2.7.2.686 [id number] [facility] 2020-12-03 08:00:00 2020-12-03 08:00:00 Outpatient R [facility] [id number] [facility] 2020-12-01 00:00:00 2020-12-01 00:00:00 Radha Stafford [facility] 1.840.114 350.1.13.10 4.2.7.2.686 [id number] [facility] [id number] [facility] 2020-11-29 00:00:00 2020-11-29 00:00:00 Patient Secure Msg Doctor Unassigned, [place] [facility] 1.20.114 350.1.13.10 4.2.7.2.686 [id number] 311 [id number] [facility] 2020-11-26 09:13:13 2020-11-26 09:43:13 Office Visit Taurus Guadalupe [facility] 1..114 350.1.13.10 4.2.7.2.686 [id number] [facility] 2020-11-26 09:00:00 2020-11-26 09:00:00 Outpatient R BUDDY GUADALUPEMAD [facility] [id number] [facility] 2020-11-15 11:15:00 2020-11-15 11:15:00 Outpatient EMILY MADERA [facility] [id number] [facility] 2020-11-09 16:30:40 2020-11-09 17:00:40 Office Visit Radha Trinidad [facility] 1..114 350.1.13.10 4.2.7.2.686 [id number] [facility] 2020-11-09 16:30:00 2020-11-09 16:30:00 Outpatient RADHA GUPTA [facility] [id number] [facility] 2020-11-02 00:00:00 2020-11-02 00:00:00 Patient Outreach Tacos Giron [facility] 1..114 350.1.13.10 4.2.7.2.686 [id number] [facility] 2020-10-29 00:00:00 2020-10-29 00:00:00 Telephone Radha Trinidad [facility] 1..114 350.1.13.10 4.2.7.2.686 [id number] 311 [id number] [facility] 2020-10-28 13:00:00 2020-10-28 23:59:00 Hospital Encounter Radha Trinidad [facility] 1.840.114 350.1.13.10 4.2.7.2.686 [id number] [facility] 2020-10-28 00:00:00 2020-10-28 00:00:00 Outpatient RADHA GUPTA [facility] [id number] [facility] 2020-10-22 00:00:00 2020-10-22 00:00:00 Telephone Radha Trinidad [facility] 1.840.114 350.1.13.10 4.2.7.2.686 [id number] 311 [id number] [facility] 2020-10-21 08:04:47 2020-10-21 08:59:28 Office Visit Radha Trinidad [facility] 1.0.114 350.1.13.10 4.2.7.2.686 [id number] [facility] 2020-10-21 08:00:00 2020-10-21 08:00:00 Outpatient RADHA GUPTA [facility] [id number] [facility] 2020-10-18 07:52:00 2020-10-18 11:07:00 Hospital Encounter Curtis Morley [facility] 1.0.114 350.1.13.10 4.2.7.2.686 [id number] [facility] 2020-10-18 00:00:00 2020-10-18 00:00:00 Orders Only Doctor Unassigned, [place] [facility] 1.840.114 350.1.13.10 4.2.7.2.686 [id number] [facility] 2020-10-15 09:59:05 2020-10-15 10:14:05 Laboratory Only Only, Pcp Test Curtis Morley [facility] 1.2.840.114 350.1.13.10 4.2.7.2.686 [id number] [facility] 2020-10-15 10:00:00 2020-10-15 10:00:00 Outpatient R CURTIS MORLEY [facility] [id number] [facility] 2020-10-14 00:00:00 2020-10-14 00:00:00 Telephone Radha Trinidad [facility] 1.2.840.114 350.1.13.10 4.2.7.2.686 [id number] 311 [id number] [facility] 2020-10-14 00:00:00 2020-10-14 00:00:00 Telephone Radha Trinidad [facility] 1.2.840.114 350.1.13.10 4.2.7.2.686 [id number] [facility] 2020-10-14 00:00:00 2020-10-14 00:00:00 Telephone Emily Obrien [facility] 1.2.840.114 350.1.13.10 4.2.7.2.686 [id number] [facility] 2020-10-13 08:47:44 2020-10-13 10:04:25 Office Visit Radha Trinidad [facility] 1.2.840.114 350.1.13.10 4.2.7.2.686 [id number] 311 [id number] [facility] 2020-10-13 09:00:00 2020-10-13 09:00:00 Outpatient RADHA GUPTA [facility] [id number] [facility] 2020-10-11 11:15:00 2020-10-11 11:15:00 Outpatient R EMILY OBRIEN [facility] [id number] [facility] 2020-10-06 00:00:00 2020-10-06 00:00:00 Patient Secure Msg Doctor Unassigned, [place] [facility] 1.0.114 350.1.13.10 4.2.7.2.686 [id number] [facility] 2020-09-24 00:00:00 2020-09-24 00:00:00 Solis Nicholas [facility] 1..114 350.1.13.10 4.2.7.2.686 [id number] [facility] 2020-09-23 08:43:07 2020-09-23 09:51:11 Office Visit Curtis Morley [facility] 1.114 350.1.13.10 4.2.7.2.686 [id number] [facility] 2020-09-23 09:00:00 2020-09-23 09:00:00 Outpatient R CURTIS MORLEY [facility] [id number] [facility] 2020-09-23 00:00:00 2020-09-23 00:00:00 Prep For Surgery Chan Souza [facility] 1..114 350.1.13.10 4.2.7.2.686 [id number] [facility] 2020-09-17 14:30:00 2020-09-17 14:30:00 Outpatient R [facility] [id number] [facility] 2020-09-13 00:00:00 2020-09-13 00:00:00 Letter (Out) Norma Parker [facility] 1..114 350.1.13.10 4.2.7.2.686 [id number] [facility] 2020-09-11 11:21:37 2020-09-11 11:36:37 Urgent Care Ashley Raines [facility] 1.2.840.114 350.1.13.10 4.2.7.2.686 [id number] [facility] 2020-09-11 11:30:00 2020-09-11 11:30:00 Outpatient R ASHLEY RAINES [facility] [id number] [facility] 2020-09-08 19:59:31 2020-09-08 20:28:35 Urgent Care Samina Ferrera [facility] 1.2.840.114 350.1.13.10 4.2.7.2.686 [id number] [facility] 2020-09-08 19:45:00 2020-09-08 19:45:00 Outpatient SAMINA BLACK [facility] [id number] [facility] 2020-09-02 16:33:28 2020-09-02 16:48:28 Piping Drafter Visit [facility] Skyler Potter [facility] 1.2.840.114 350.1.13.10 4.2.7.2.686 [id number] [facility] 2020-09-02 16:03:20 2020-09-02 16:33:20 Office Visit Skyler Potter [facility] 1.2.840.114 350.1.13.10 4.2.7.2.686 [id number] [facility] 2020-09-02 16:00:00 2020-09-02 16:00:00 Outpatient SKYLER DOUGHERTY HOWARD [facility] [id number] [facility] 2020-08-27 10:22:19 2020-08-27 11:41:08 Office Visit Emily Obrien [facility] 1..840.114 350.1.13.10 4.2.7.2.686 [id number] [facility] 2020-08-27 10:30:00 2020-08-27 10:30:00 Outpatient EMILY MADERA [facility] [id number] [facility] 2020-08-27 00:00:00 2020-08-27 00:00:00 Orders Only Doctor Unassigned, [place] [facility] 1..840.114 350.1.13.10 4.2.7.2.686 [id number] [facility] 2020-08-20 13:00:00 2020-08-20 13:00:00 Outpatient PAWEL MADERAJAMESCharlotte [facility] [id number] [facility] 2020-08-19 10:34:33 2020-08-19 11:38:15 Office Visit Micheline Mitchell [facility] 1..840.114 350.1.13.10 4.2.7.2.686 [id number] [facility] 2020-08-19 10:30:00 2020-08-19 10:30:00 Outpatient MICHELINE NIELSON [facility] [id number] [facility] 2020-08-17 00:00:00 2020-08-17 00:00:00 Patient Secure Taurus Acuna [facility] 1..840.114 350.1.13.10 4.2.7.2.686 [id number] [facility] 2020-08-12 09:30:00 2020-08-12 09:30:00 Outpatient SKYLER DOUGHERTY HOWARD [facility] [id number] [facility] 2020-07-31 16:16:45 2020-07-31 16:31:45 Urgent Care Ashley Raines [facility] 1.2.840.114 350.1.13.10 4.2.7.2.686 [id number] [facility] 2020-07-31 16:15:00 2020-07-31 16:15:00 Outpatient R ASHLEY RAINES [facility] [id number] [facility] 2020-07-31 00:00:00 2020-07-31 00:00:00 Patient Secure Msg Doctor Unassigned, [place] [facility] 1.2.840.114 350.1.13.10 4.2.7.2.686 [id number] [facility] 2020-07-31 00:00:00 2020-07-31 00:00:00 Orders Only Doctor Unassigned, [place] [facility] 1.2.840.114 350.1.13.10 4.2.7.2.686 [id number] [facility] 2020-07-29 00:00:00 2020-07-29 00:00:00 Patient Secure Msg Doctor Unassigned, [place] [facility] 1.2.840.114 350.1.13.10 4.2.7.2.686 [id number] [facility] 2020-07-28 16:05:38 2020-07-28 16:20:38 Urgent Care Samina Ferrera A Unknown, Attending [facility] 1.2.840.114 350.1.13.10 4.2.7.2.686 [id number] [facility] 2020-07-28 16:15:00 2020-07-28 16:15:00 Outpatient R UNKNOWN, ATTENDING [facility] [id number] [facility] 2020-07-27 00:00:00 2020-07-27 00:00:00 Telephone Radha Trinidad [facility] 1.2.840.114 350.1.13.10 4.2.7.2.686 [id number] [facility] 2020-07-27 00:00:00 2020-07-27 00:00:00 Telephone Radha Trinidad [facility] 1.2.840.114 350.1.13.10 4.2.7.2.686 [id number] 311 [id number] [facility] 2020-07-27 00:00:00 2020-07-27 00:00:00 Telephone Radha Trinidad [facility] 1.2.840.114 350.1.13.10 4.2.7.2.686 [id number] [facility] 2020-07-23 14:42:56 2020-07-23 15:29:43 Office Visit Aiyana Nicholas [facility] 1.0.114 350.1.13.10 4.2.7.2.686 [id number] [facility] 2020-07-23 14:45:00 2020-07-23 14:45:00 Outpatient R AIYANA NICHOLAS [facility] [id number] [facility] 2020-07-23 10:06:48 2020-07-23 10:46:48 Ancillary Visit Maki Jacobo Brian A [facility] 1.840.114 350.1.13.10 4.2.7.2.686 [id number] [facility] 2020-07-23 00:00:00 2020-07-23 00:00:00 Telephone Radha Trinidad [facility] 1.840.114 350.1.13.10 4.2.7.2.686 [id number] [facility] 2020-07-22 00:00:00 2020-07-22 00:00:00 Nurse Triage Bessie Alexandre [facility] 1.840.114 350.1.13.10 4.2.7.2.686 [id number] [facility] 2020-07-17 12:40:52 2020-07-17 23:59:00 Hospital Encounter Vega Skyler Aquino [facility] 1.114 350.1.13.10 4.2.7.2.686 [id number] [facility] 2020-07-17 12:40:52 2020-07-17 23:59:00 Outpatient Annalee VEGA, SKYLER GAFFNEY [facility] [id number] [facility] 2020-07-16 13:30:27 2020-07-16 14:23:07 Office Visit Fellow, Cardiology Taurus Guadalupe [facility] 1.114 350.1.13.10 4.2.7.2.686 [id number] [facility] 2020-07-16 13:30:00 2020-07-16 13:30:00 Outpatient TAURUS TODD [facility] [id number] [facility] 2020-07-15 12:00:00 2020-07-15 12:00:00 Outpatient Annalee FOFANADemetri SKYLER GAFFNEY [facility] [id number] [facility] 2020-07-13 10:03:54 2020-07-13 12:32:51 Office Visit Octavio Anderson [facility] 1..114 350.1.13.10 4.2.7.2.686 [id number] [facility] 2020-07-13 10:10:00 2020-07-13 10:10:00 Outpatient OCTAVIO HALE [facility] [id number] [facility] 2020-07-13 08:09:29 2020-07-13 09:09:29 Ancillary Visit Rain Ross Brian A [facility] 1.114 350.1.13.10 4.2.7.2.686 [id number] [facility] 2020-07-13 08:00:00 2020-07-13 08:00:00 Outpatient BRADY OWLFE [facility] [id number] [facility] 2020-06-30 15:35:16 2020-06-30 16:05:16 Office Visit Skyler Potter [facility] 1..114 350.1.13.10 4.2.7.2.686 [id number] [facility] 2020-06-30 15:30:00 2020-06-30 15:30:00 Outpatient SKYLER DOUGHERTY HOWARD [facility] [id number] [facility] 2020-06-30 09:49:13 2020-06-30 10:57:25 Office Visit Lucille Banks [facility] 1.840.114 350.1.13.10 4.2.7.2.686 [id number] [facility] 2020-06-25 14:51:00 2020-06-25 16:02:06 [facility] 350.1.13.10 4.2.7.2.686 [id number] [facility] 2020-06-25 15:00:00 2020-06-25 15:00:00 Outpatient AIYANA INGRAM [facility] [id number] [facility] 2020-06-23 00:00:00 2020-06-23 00:00:00 Telephone Radha Trinidad [facility] 1..840.114 350.1.13.10 4.2.7.2.686 [id number] [facility] 2020-06-22 08:00:00 2020-06-22 08:00:00 Outpatient BRADY WOLFE [facility] [id number] [facility] 2020-06-22 00:00:00 2020-06-22 00:00:00 Refill Doctor Unassigned, [place] [facility] 1.2.840.114 350.1.13.10 4.2.7.2.686 [id number] [facility] 2020-06-14 12:54:45 2020-06-14 14:42:06 Office Visit Lucille Banks [facility] 1.2.840.114 350.1.13.10 4.2.7.2.686 [id number] [facility] 2020-06-14 13:00:00 2020-06-14 13:00:00 Outpatient R LUCILLE BANKS [facility] [id number] [facility] 2020-06-07 08:59:10 2020-06-07 10:09:23 Office Visit Radha Trinidad [facility] 1.2840.114 350.1.13.10 4.2.7.2.686 [id number] [facility] 2020-06-07 09:00:00 2020-06-07 09:00:00 Outpatient R RADHA TRINIDAD [facility] [id number] [facility] 2020-06-07 00:00:00 2020-06-07 00:00:00 Patient Secure Msg Doctor Unassigned, [place] [facility] 1.2.114 350.1.13.10 4.2.7.2.686 [id number] [facility] 2020-06-05 00:00:00 2020-06-05 00:00:00 Telephone AceSelena jalloh [facility] 1.2840.114 350.1.13.10 4.2.7.2.686 [id number] [facility] 2020-06-05 00:00:00 2020-06-05 00:00:00 Telephone [facility] 1..114 350.1.13.10 4.2.7.2.686 [id number] [facility] 2020-06-05 00:00:00 2020-06-05 00:00:00 Telephone Tony Grigsby [facility] 1..114 350.1.13.10 4.2.7.2.686 [id number] [facility] 2020-06-05 00:00:00 2020-06-05 00:00:00 Patient Secure Msg Doctor Unassigned, [place] [facility] 1..114 350.1.13.10 4.2.7.2.686 [id number] [facility] 2020-06-05 00:00:00 2020-06-05 00:00:00 Patient Secure Msg Doctor Unassigned, [place] [facility] 1..114 350.1.13.10 4.2.7.2.686 [id number] [facility] 2020-06-04 15:21:29 2020-06-04 16:31:00 Office Visit [facility] Resident Keri Yee [facility] 1.114 350.1.13.10 4.2.7.2.686 [id number] [facility] 2020-06-04 15:30:00 2020-06-04 15:30:00 Outpatient R [facility] [id number] [facility] 2020-06-04 00:00:00 2020-06-04 00:00:00 Patient Secure Msg Doctor Unassigned, [place] [facility] 1..114 350.1.13.10 4.2.7.2.686 [id number] [facility] 2020-06-03 10:01:28 2020-06-03 10:31:28 Office Visit Micheline Mitchell [facility] 1.2.840.114 350.1.13.10 4.2.7.2.686 [id number] [facility] 2020-06-03 10:00:00 2020-06-03 10:00:00 Outpatient R MICHELINE MITCHELL [facility] [id number] [facility] 2020-06-02 00:00:00 2020-06-02 00:00:00 Patient Secure MsNorbert Taylor [facility] 1.2.840.114 350.1.13.10 4.2.7.2.686 [id number] [facility] 2020-05-31 00:00:00 2020-05-31 00:00:00 Telephone Micheline Mitchell [facility] 1.2.840.114 350.1.13.10 4.2.7.2.686 [id number] [facility] 2020-05-31 00:00:00 2020-05-31 00:00:00 Telephone Pcp, Patient Does Not Have A [facility] 1.2.840.114 350.1.13.10 4.2.7.2.686 [id number] [facility] 2020-05-28 08:52:00 2020-05-28 12:40:00 Hospital Encounter Norbert Gay [facility] ([facility]) 1.2.840.114 350.1.13.10 4.2.7.2.686 [id number] [facility] 2020-05-28 00:00:00 2020-05-28 00:00:00 Orders Only Doctor Unassigned, [place] [facility] 1.2.840.114 350.1.13.10 4.2.7.2.686 [id number] [facility] 2020-05-25 08:25:23 2020-05-25 08:40:23 Piping Drafter Visit Lab, [facility] Stew Gordy Kennedy [facility] 1.2840.114 350.1.13.10 4.2.7.2.686 [id number] [facility] 2020-05-25 08:30:00 2020-05-25 08:30:00 Outpatient GORDY ANDRADE [facility] [id number] [facility] 2020-05-24 08:26:48 2020-05-24 08:41:48 Laboratory Only Only, Pcp Test Norbert Gay [facility] 1.2840.114 350.1.13.10 4.2.7.2.686 [id number] [facility] 2020-05-24 08:30:00 2020-05-24 08:30:00 Outpatient NORBERT MASRH GABRIEL [facility] [id number] [facility] 2020-05-17 00:00:00 2020-05-17 00:00:00 Patient Secure Msg Emeli [facility] 1.2840.114 350.1.13.10 4.2.7.2.686 [id number] [facility] 2020-05-14 13:06:12 2020-05-14 13:21:12 Piping Drafter Visit Lab, [facility] Stew Elder Welch [facility] 1.2840.114 350.1.13.10 4.2.7.2.686 [id number] [facility] 2020-05-14 13:15:00 2020-05-14 13:15:00 Outpatient ELDER ORTIZ [facility] [id number] [facility] 2020-05-13 13:18:56 2020-05-13 17:12:41 Office Visit Cait Sainz [facility] 1.2840.114 350.1.13.10 4.2.7.2.686 [id number] [facility] 2020-05-13 10:24:15 2020-05-13 11:30:53 Office Visit Micheline Mitchell [facility] 1.2.840.114 350.1.13.10 4.2.7.2.686 [id number] [facility] 2020-05-13 10:30:00 2020-05-13 10:30:00 Outpatient R MICHELINE MITCHELL [facility] [id number] [facility] 2020-05-13 00:00:00 2020-05-13 00:00:00 Orders Only Doctor Unassigned, [place] [facility] 1.2.840.114 350.1.13.10 4.2.7.2.686 [id number] [facility] 2020-05-10 00:00:00 2020-05-10 00:00:00 Patient Secure Msg Doctor Unassigned, [place] [facility] 1.2.840.114 350.1.13.10 4.2.7.2.686 [id number] [facility] 2020-05-10 00:00:00 2020-05-10 00:00:00 Letter (Out) Norma Parker [facility] 1.2.840.114 350.1.13.10 4.2.7.2.686 [id number] [facility] 2020-05-09 10:57:08 2020-05-09 11:59:21 Urgent Care Samina Ferrera Unknown, Attending [facility] [place] 1.2.840.114 350.1.13.10 4.2.7.2.686 [id number] [facility] 2020-05-09 11:00:00 2020-05-09 11:00:00 Outpatient R UNKNOWN, ATTENDING [facility] [id number] [facility] 2020-02-09 00:00:00 2020-02-09 00:00:00 Odilia Linn [facility] 1.2.840.114 350.1.13.10 4.2.7.2.686 [id number] [facility] 2020-01-27 13:30:00 2020-01-27 13:30:00 Outpatient SKYLER DOUGHERTY HOWARD [facility] [id number] [facility] 2019-10-23 00:00:00 2019-10-23 00:00:00 Outpatient SKYLER DOUGHERTY HOWARD [facility] [id number] [facility] 2019-10-10 00:00:00 2019-10-10 00:00:00 Telephone Skyler Potter [facility] 1.2.840.114 350.1.13.10 4.2.7.2.686 [id number] [facility] 2019-10-10 00:00:00 2019-10-10 00:00:00 Patient Secure Msg Doctor Unassigned, [place] [facility] 1.2840.114 350.1.13.10 4.2.7.2.686 [id number] [facility] 2019-10-09 00:00:00 2019-10-09 00:00:00 Telephone Skyler Potter [facility] 1.2840.114 350.1.13.10 4.2.7.2.686 [id number] [facility] 2019-09-16 17:21:41 2019-09-16 17:51:06 Office Visit Odilia Mejia [facility] 1.2.840.114 350.1.13.10 4.2.7.2.686 [id number] [facility] 2019-09-16 17:20:00 2019-09-16 17:51:06 Outpatient ODILIA SCHILLING [facility] [id number] [facility] 2019-08-26 10:42:50 2019-08-26 13:40:32 Piping Drafter Visit Lab, [facility] [address] [facility] 1.2.840.114 350.1.13.10 4.2.7.2.686 [id number] [facility] [id number] [facility] 2019-07-17 11:47:16 2019-07-17 16:16:00 Emergency X CHALINO BROWN [facility] ERT [id number] [facility] 2019-04-08 10:55:00 2019-04-08 10:55:00 Outpatient Bill Luque CHW CHW [id number] [facility] 2019-03-17 11:00:00 2019-03-17 11:00:00 Outpatient Walk-In, Ludmila CHW CHW [id number] [facility] 2019-03-13 16:00:00 2019-03-13 16:00:00 Outpatient Kami Medina CHW CHW [id number] [facility] 2019-03-01 10:49:00 2019-03-01 10:49:00 Outpatient Bill Luque CHW CHW [id number] [facility] 2019-02-25 07:47:00 2019-02-25 07:47:00 Outpatient Bill Luque CHW [id number] [facility] 2019-02-24 12:40:00 2019-02-24 12:40:00 Outpatient Bill Luque CHW CHW [id number] [facility] 2019-02-20 11:19:00 2019-02-20 11:19:00 Outpatient Bill Luque CHW [id number] [facility] 2019-02-19 15:20:00 2019-02-19 15:20:00 Outpatient Bill Luque CHW CHW [id number] [facility] 2019-02-06 15:50:00 2019-02-06 15:50:00 Outpatient aRdha Wilson CHW CHW [id number] [facility] 2019-01-07 16:14:00 2019-01-07 16:14:00 Outpatient Radha Wilson [facility] [id number] [facility] 2018-12-09 09:46:00 2018-12-09 09:46:00 Outpatient Radha Wilson Harish W [id number] [facility] 2018-11-19 08:00:00 2018-11-19 08:00:00 Outpatient Michelle Reyes [facility] [id number] [facility] 2018-10-29 16:00:00 2018-10-29 16:00:00 Outpatient Michelle Reyes [facility] [id number] [facility] 2018-10-14 14:20:00 2018-10-14 14:20:00 Outpatient Walk-In, Ludmila [facility] [id number] [facility] 2018-10-12 09:20:00 2018-10-12 09:20:00 Outpatient Genesis Bustamante [facility] [id number] [facility] 2018-10-09 15:00:00 2018-10-09 15:00:00 Outpatient Radah Wilson [facility] [id number] [facility] 2018-08-28 10:37:00 2018-08-28 10:37:00 Outpatient Radha Wilson [facility] [id number] [facility] 2018-08-26 11:40:00 2018-08-26 11:40:00 Outpatient Walk-In, Ludmila [facility] [id number] [facility] 2018-08-16 08:18:00 2018-08-16 08:18:00 Outpatient Radha Wilson [facility] [id number] [facility] 2018-08-09 10:39:00 2018-08-09 10:39:00 Outpatient Radha Wilson [facility] [id number] [facility] 2018-08-08 16:20:00 2018-08-08 16:20:00 Outpatient Radha Wilson [facility] [id number] [facility] Results Test Description Test Time Test Comments Results Result Co mments Source [facility] [id number] 22:04:28EXAM: US PELVIS COMPLETE WITH TRANSVAGINAL HISTORY: 39 years-old Female; Provided indication: pelvic pain . LMP = 03/23/2024 TECHNIQUE: Transabdominal and transvaginal ultrasound imaging and colorDoppler evaluation of the pelvis was performed. Dock Grader images wereobtained for the record. COMPARISON: Pelvic ultrasound obtained on 07/26/2022 FINDINGS: Uterus: The uterus measures 7.1 x 3.4 x 4.2 cm. The myometrium appears homogenous.No focal lesion is detected. The endometrium is normal in appearance andthe thickness measures 0.2 cm. The cervix is unremarkable. Right Adnexa:Ovary: The rightovary measures 4.3 x 2.1 x 2.1 cm with a volume of 10.2ml. The right ovary is unremarkable. Left Adnexa:Ovary: The left ovary measures 3.3 x 2.2 x 2.3 cm with a volume of 8.7 ml.The left ovary is unremarkable. Cul-de-sac: No free fluid is present.[facility] [id number] 15:21:08* Test Item Value Reference Range Interpretation Comme nts Case Report (test code = 5287318152) Surgical Pathology ?Case: [id number] ? Authorizing Provider: ?Azalia Michel MD ?Collected: ? 03/24/2024 1200 ?Ordering Location: ? ? [facility] ? ? Received: ?03/24/2024 1300 ? Center ? Pathologist: ? Karime Rubio MD ? Specimen: ? ?PERIRECTAL, fissure biopsy ? Final Diagnosis (test code = [id number]) [id number] FuZzEwMzNcZnRuYmpcdWMx ZYelutXoUXipgFsmQUK1LC DbYF8oyFgmtZv9dCoaAKSf nsS4eBBaWGljv2vkKYJ1c9 pxafgkNWVxALzgHc4qbAYm tHqmQaHoJQEeVGq7xQ88WH XnyL1wyWKqCXq2HNOwkSTc kwZgXpHqZHZzhNGbzFC7TX NhBV1envymTEpjMKkmPLIk avN0BJLjpXAxK9YwSCJmGF 2pkbucYRV8RTlbYHGbIAT6 DkPcHWXto6Irzbs7IxTnsE FyZFxwbGFpblxmczIwXHBh ciBBLiBQRVJJUkVDVEFMLC GXCUGGZDAZNJOEKM5UC7l0 XHBhciAgICAgLSBBTkFMIF GRRMKUV3YEJS4JC31FVEAS JJTEPHADIj8VP52CABdeM9 2VO5DHYSJORNUJXQZCPVEz UzOZO3MRGktddNHiRZUgAI PaGBWQBkKzEn7QNAhuE8lD O80QAtDTBrYEXR8VFBEDH3 5ccGFyXHBhcmRccGFyXHBh up11MQQ6ZbUoj5Q0XXKbQe KpUZUlSR7tlBzfEEOzHD9o LWEhB1qkuA4sqak3JlUnZA WyHqJ8ZTSgcgZ7Sms7ULXj JVlib2ohr4JcM2EftEWedT w4r4gfOKUeNjD9uFAuMOvg U9ncbwLvvNRnXNEwURu6eA ynQiJjOULpl3ktqfKxDqJh SXQuPXUdMVErnArjwby4eL 00KOIjhC4vkGRhQQvzwvYu MaV2EAflFZHvOyU8TTGxoF UsFTJsK7esVFChMTtqYIMc QEmukPTbQOV3sPqks4A1uU VzaGVldHtcZjBcZnMyOCBO g0NdCGy3pOlgU1LhKGCmAh W3oSHiHKMzPKlxFTEkTACk gfB8uA44YTouvrE4kJMng3 Ort38yn156dZ7aeEWbIMF2 JUOrTPBctAMkHMBpAJM7DC VslJDqJ5kzJTGmAZ9ltioi EOjfKTyvLDLviJA6TPXqwD FkT9ZoYGTzDYzoPWNgrqn4 QsFhUc2fwNWpvMkkLNohc6 eoq3zliEOfTfk6ORZpGzAk AafgRDzpq4Pqc0awFHPctz 4uDZN9mJDdgShdg4M3vDMv JFTybDFxvgAdUTBnRtZ4SY jaXO9wpj62KMBfOMN1wd0d bGNccGdicmRyaGVhZFxwZ2 BbSHDng382XXQeX9YzYUVp t5J6foXjOgEbSAHgnYU4re N9ACXvHFz7aMObihE0xsQp sYXxT6fkdA7tUJYiYZ5ugu nml5dfIUxiJBxnTTFzePG6 wlU2WLAdgDLkD9TffN2qOT HuQIjxKGWcgxm7VxDcEk1q dGVyeTcyMFxzYmtwYWdlXH BnbmNvbnRccGduZGVjXHBs YWluXHBsYWluXGYwXGZzMj LzhNiddZblbV3hNuVsXfHw QPpmSD5jLNEwD6ikrMGkLB MySRHbO2avGxSxzR9flYvi MVxjZjJcZnMyMFxwYXIgSS BoYXZlIHBlcnNvbmFsbHkg ujL9aIO9RINdQAyrPMQtTJ CstRZbxl8tlVcyINTnTK8m IGFncmVlIHdpdGggYWxsIH J6MZWbeKQbvJLwrAArRNFo eSByZXNpZGVudHMsIGZlbG vsn0Oya6RniQH8tG5eu4tv y1OjUGSucAK8WQ40wqU1pX 5sTFUnBL9sVBLwCV1jcKBw uZMiZTSjy60ajXswnkVbRF BvcnQuXHBsYWluXGYyXGZz MjhcbGFuZzEwMzNcaGljaF luKjlmFlYqPTHnMGooH4im OtIoKoLcNVcrVJR2cB== Clinical Information (test code = 1992237907) Kelsey Luke is a 39 year old female Gross Description (test code = 8818102782) z4mukVXeHUGnrNICYMZ4ND MvOD6miCkpfZr3bHudUZOm smJ1vHGaRLffq1fkSTS7h9 cvoqQXVvvdJFOmXM5wJCbx NFPqTZ3nBtKuJJHiRiRsWJ BhcGVydzEyMjQwXHBhcGVy wTV2PYCfCQ4nbeslMVukAK brBOJqcpO2VSHhuBQqN6Mo CVIuUF7wklmuATT3MYTTKp jhCz2kbZFtrKvtNwVpXyOf XQOyTCFnVOUve8afunWFem sxvKz9bJ3EFKQhJ7LtLS1Q d4vaSMWsxCJnJOD3HJuaj1 nbGRtgHEM3DRVhUVZaKNXr QC1MJlWiDZD4PZJ0CQYcXx L8BRy3PKZXCOXpBCK6LsO3 YOY2KLw4TGBtCP4iTMaccO ArTXvtJuooMPhiM696AWrq ZESdA3WhD9EhOReoIgMzFK nkVXGyHSBeXYmhRQKmO9DR VJXwUUS6NKj1FrYsRVg5TJ c6YT8YZuHjZLYwEeP2JFlm WPArQVg1AJuaHP7ZCLDxQe toNURlLUVkVEL7TqmjOMw3 IDIgXFxzcyAzIFxcZmwgXF riK40orDPyJKNNGxriqHKn blxmczIwIFNQRUNJTUVOIE AqtRJcP2cgHkKfMxuyQSHg DQpccGFyZCANClxwbGFpbl xsdHJjaFxmczIyXGVwaWNO GPU3HL4wMNCDTjswaQOtHT MhETtYkSOzzI7gsqZSPRux PRLvV6NgbnVoMOqsMCClvi 1hbGluLCBsYWJlbGVkIHdp dGggdGhlIHBhdGllbnQncy TcMY6xXKVRWQBaaO8iARKz ICJwZXJpcmVjdGFsLCBmaX NnhXMxVNNfj9SisNPnPR9s LEVwovPaf9HrWC7mCUPoe4 wtZ9qcABTevj7ewT5sRMon lbPexGechfPvi7O6HYEsr3 B1VRFwtwTdlESjmGUjWZ27 AEipNM7oBNlkUB8vAAIbTP 5vOABtZEPldQWtkE9fvvSp qgYqrNd8PNFbAUKedoYnPH VnNtqphYS7UUIiFuNvwhPl e8RewHn4gADmJRdyPYSpgD 3ooT3rVAXaUISigxMHFrnv HKAqPTudx7OfMWdoaAhtKT ElVwCgKOcWYB31xCEbJUp1 LCBQQSAoQVNDUCkNClxlcG wpNcGunYFxOzP3KVDfzBOw MRS3XB2woCiwISMmB4GkJ7 BzwjK8FRMohfVOFxbmSVXw IA0KfQ== Disclaimer (test code = [id number]) w4pxzRJnSMEgx7ovAPShzE FuZzEwMzNcZnRuYmpcdWMx FVngiuYvIVihi0YuR6IeOz AwMFxhbnNpXGRlZmxhbmcx LUXpUBQ1dnGfQAZyJYfkVM HpUTqoFc8zhIAirTmsFeGv MGDog0jpyqEUTRafPmYbJ8 60LSJuJMwsr7jhr6UoXOCt eVEev3Z6WMJVmkxjyDy9pH brO30bk4R3HiobC8goPOWn ADXhP7GtHR5tVQAfQht5WY N1HYR9UNVxCWPqO1DxJT5h TOKpqQSzJEv0c2etjKreHG DoDFW4e3pzQVseabVeLL1w xx6tkZv9k2ckkxRiINJaGT OlbREUOTDyF9SahTzhTw8u iZf1mJhmQjaiDZG6Hvz8PA 4oyq84wzv8lPdjGEIkitlp QhF0NNxhWCItdkvgCHk1WX thUAJdlUA5AHTalRYcF2Eo QHNoQM5yfjj6ASC0WQwlHT SzYxX0WQFfqDXpPTQdyVtc HBxkw456TIO3GtIaPG0tK3 Pfn7Q8yT3faZBlNOXxiAIj BpIjCNWcjp2ioREqHAajf5 OiJIW4iqQ7xXEqrOKrYYUl UZ34Rrdre7GiQqcey5TmO9 8ziFC4LGbfh1deJR0qEwX8 xhCvQUidm8nfcT0bTkX4JW rwCZ3rIN1aKEUzcK4pqccf XHBnYnJkcmhlYWRccGdicm NvJo7vhXlaLKZ8MKemV7tg fO9fVhJ6TWhjJ7cbuS3yGU b8FConvLN1ZMLleZ1kUU6q celby9eiUBtyBEirCGLjho B2zfH2NAFwzZNfA9TgdE6w ASYnTB5xqbhqp3ufBZZ0PY wvLVLdLLV6InAxIGVtp7Rt jam7CrUsn9FpgSXoNYewE1 6mc282ZJXjydMfK4jueEFr bkwutQMfjwinNJwefxQ0XV KtmtUkh7JtGBKdNXX5ENzv FBkbdAEyBAAljGcyr3qbT4 RscGFyXHBsYWluXGYxXGZz MjBcbGFuZzEwMzNcaGljaF jkCRsmEvAqBTEgGLgdP6jx GnQiV4WlFEHaCvPifQFeK3 ggVGhpcyByZXBvcnQgbWF5 OJzvD9k1BVLncoHbhBk7ra PjLiOwQCYgFCT6NJlvqIPx ACVkz5SjpkuxzUVsTw7stJ SkNKHyyL9hZUQnEHKvMXwl EU3uvGd3GJRNhXPmlBLsTt YQKPOsCV97kyMjICTMjefz j1W1BHmcLFTfs7WbzNLhY9 jfj8BtKAXtm72wVZ8gu8G4 c9drGRH8DQ3vq5SlVEYafP SupBDrOWUez4Pliqoyn3Do LGGxxzGjc6BdZJOizlYocI TkYZPegpXgnv1udtVcVDQk XFNqR5WbepafgNjrryLqJH Ojzz9aygVbERV7FGZQTVBd BOCrs7BedL9eeMESHAR0zI Yiky4jomRTzCFmMGMrta72 WSLyTS2pE8zrBYZbLESrng TmnBPua5QxTWRkkSS9tCNa VV1FJoPZs45sQOJpXVDXml MmIAZzjYpqmIR4kaZ5sQ6a IChGREEpLlx+IFRoZSBGRE XpTM7snkEdz7NccwNuqIoz MLHcsTPlk3KmiHEjr5JudS kha3NpoKYxxQOsEA3vCDMi clxwYXIgVVRNQiBMYWJvcm T9l7EmQNPvXWFlZHX9dIzm jni5XIHjaA0sLDJgI4gylx pxCTqpDPPtx0ThrT7aiFBF gDFbv0CklLGtaHRGoBKeCE 7ergGmDMkAHPpVOKI1apOs YIZfc4OsKSpzG6dqN19xaC denGp7lPC6TQZ0yS2bQxk+ IFxwYXJccGFyIEFwcHJvcH QjEORsiKdsfwHuL9EeeuJh pG1brADxeaTwMQ2aOC4kW5 W4vUSpRKWogxEip2yyAIqb dmUgYmVlbiByZXZpZXdlZC Jer4HqGRukZRA7RYaasnAp bmNsdWRpbmcgSCZFLCBTcG OmbIWcRVY4NIpjisEjkeRi TX2xvM4mzYtuwH1yjGZnxU K3zuiiMQEiKBHklXglAFKw IV6jaGscnI3wZiRcNcGfAF ltRF4rCNYkI3ytmSIaPXBl ICHcQ9ilTfDhnC8hsJrtYW xjZjJcZnMyMFxwYXJccGFy XHBsYWluXGYxXGZzMjBcbG FuZzEwMzNcaGljaFxmMVxk NeNwCSNkSFjwD4nvHzMsS4 YkWGDbJoOmfAGoS4tnUOrm ERP3PBBtMZ9mpERzSM19mB Oek0ydLIfevKrkig0aR13t vXAvGJzruRkqOMFsp06nl0 MnUAOyamYodu7xEYUqzcV1 cO8xDZLunWzwOOTlkFKbGF Xku1KbBSlzzQBupwPbWXud RVKuSLGbkVKjekZ8vjLeub EucqOkMRMvaNfuZTEzx0Ue BACvHOljc4Pock0wdYScLH NkpvJXnBhqsZCytJ4eW3Wa IMKbVJGzps7jMIWgrU5uGV fpb5MquirzLCSxYAZgNDFt ukTmkx0wCHWgsZUAEH6ICI wfpDEzn9PoudOfC4hOUEL7 NUQwNjYwMjgxKSBleGNlcH ZjPKOsfy45OYRnoO6nqFcj UNDnoW4zcL7nlUnyrA1uSj DbHxSmUCoxYZ8kFPIyM7vs rEBxRRRbLEVpB8uhQjPbzF 9jaFxmMVxjZjJcZnMyMFxw YXJ9fQ== Embedded Images (test code = [id number]) [facility] GLUCOSE (AUTOMATED)2024-03-24 14:48:42* Test Item Value Reference Range Interpretation Comme nts POCT GLU (test code = 8091180679) 111 mg/dL 70-110 H Lab Interpretation (test cod e = 61490-8) Abnormal [facility] GLUCOSE (AUTOMATED)2024-03-24 14:48:42* Test Item Value Reference Range Interpretation Comme nts POCT GLU (test code = 3208614731) 111 mg/dL 70-110 H Lab Interpretation (test cod e = 67908-9) Abnormal [facility] [id number] 14:33:00* Test Item Value Reference Range Interpretation Comme nts POCT PREG (test code = 1605) Negative On board controls acceptable with C Line (test code = 3574) Yes POCT PREG LOT # (test code = 3575) POCT PREG TEST DATE ( test code = 3576) Lab Interpretation (test cod e = 38230-5) Normal [facility] [id number] 14:33:00* Test Item Value Reference Range Interpretation Comme nts POCT PREG (test code = 1605) Negative On board controls acceptable with C Line (test code = 3574) Yes POCT PREG LOT # (test code = 3575) POCT PREG TEST DATE ( test code = 3576) Lab Interpretation (test cod e = 26876-7) [facility] 18:54:58 These images do not require a Radiology diagnostic report.[facility] GLUCOSE (AUTOMATED)2024-03-20 18:05:56* Test Item Value Reference Range Interpretation Comme nts POCT GLU (test code = 2006792390) 124 mg/dL 70-110 H Lab Interpretation (test cod e = 93299-9) Abnormal [facility] [id number] 17:43:00* Test Item Value Reference Range Interpretation Comme nts POCT PREG (test code = 1605) Negative On board controls acceptable with C Line (test code = 3574) Yes POCT PREG LOT # (test code = 3575) POCT PREG TEST DATE ( test code = 3576) Lab Interpretation (test cod e = 44464-7) Normal [facility] Hemoglobin A1C [id number] 19:40:00* Test Item Value Reference Range Interpretation Comme nts POCT HBA1C (test code = 4548-4) 9.5 % 4-6 A Lab Interpretation (test cod e = 54931-2) Abnormal [facility] Urinalysis w/o Specific [id number] 19:31:00* Test Item Value Reference Range Interpretation Comme nts POCT PH U (test code = 3254) 7 mg/dl 5-8 POCT U LEUK EST (test code = 3263) trace Negative - Negative POCT U NIT (test code = 3262) neg Negative - Negati ve POCT U PROT (test code = 3259) 30 Negative - Negat bj POCT U GLU (test code = 3256) 1000 Negative - Negati ve POCT U KETONE (test code = 3258) neg Negative - Neg ative POCT U BLD (test code = 3257) 250 Negative - Negati ve [facility] Urinalysis w/o Specific [id number] 19:31:00* Test Item Value Reference Range Interpretation Comme nts POCT PH U (test code = 3254) 7 mg/dl 5-8 POCT U LEUK EST (test code = 3263) trace Negative - Negative POCT U NIT (test code = 3262) neg Negative - Negati ve POCT U PROT (test code = 3259) 30 Negative - Negat bj POCT U GLU (test code = 3256) 1000 Negative - Negati ve POCT U KETONE (test code = 3258) neg Negative - Neg ative POCT U BLD (test code = 3257) 250 Negative - Negati ve [facility] [id number] 19:16:00* Test Item Value Reference Range Interpretation Comme nts POCT PREG (test code = 1605) Negative On board controls acceptable with C Line (test code = 3574) Yes POCT PREG LOT # (test code = 3575) POCT PREG TEST DATE ( test code = 3576) [facility] [id number] 19:16:00* Test Item Value Reference Range Interpretation Comme nts POCT PREG (test code = 1605) Negative On board controls acceptable with C Line (test code = 3574) Yes POCT PREG LOT # (test code = 3575) POCT PREG TEST DATE ( test code = 3576) [facility] Hemoglobin A1C [id number] 20:36:00* Test Item Value Reference Range Interpretation Comme [facility] POCT HBA1C (test code = 4548-4) 6.7 % 4-6 A Lab Interpretation (test cod e = 80587-9) Abnormal [facility] Hemoglobin A1C [id number] 20:36:00* Test Item Value Reference Range Interpretation Comme [facility] POCT HBA1C (test code = 4548-4) 6.7 % 4-6 A Lab Interpretation (test cod e = 17742-1) [facility]23-09-12 21:04:40 These images do not require a Radiology diagnostic report.[facility] GLUCOSE (AUTOMATED)2023-09-12 20:25:01* Test Item Value Reference Range Interpretation Comme nts POCT GLU (test code = 4885801136) 134 mg/dL 70-110 H Lab Interpretation (test cod e = 64745-9) Abnormal [facility] GLUCOSE (AUTOMATED)2023-09-12 20:25:01* Test Item Value Reference Range Interpretation Comme nts POCT GLU (test code = 5415207269) 134 mg/dL 70-110 H Lab Interpretation (test cod e = 73869-6) Abnormal [facility] Gsgc8983-60-61 20:06:00* Test Item Value Reference Range Interpretation Comme nts POCT PREG (test code = 1605) Negative On board controls acceptable with C Line (test code = 3574) Yes POCT PREG LOT # (test code = 3575) POCT PREG TEST DATE ( test code = 3576) [facility] Pwma4685-94-90 20:06:00* Test Item Value Reference Range Interpretation Comme nts POCT PREG (test code = 1605) Negative On board controls acceptable with C Line (test code = 3574) Yes POCT PREG LOT # (test code = 3575) POCT PREG TEST DATE ( test code = 3576) [facility] GLUCOSE (AUTOMATED)2023-05-11 18:13:39* Test Item Value Reference Range Interpretation Comme nts POCT GLU (test code = 2805105929) 144 mg/dL 70-110 H Lab Interpretation (test cod e = 44728-0) Abnormal [facility] GLUCOSE (AUTOMATED)2023-05-11 18:13:39* Test Item Value Reference Range Interpretation Comme nts POCT GLU (test code = 5006174629) 144 mg/dL 70-110 H Lab Interpretation (test cod e = 48336-9) [facility] TITER AND$CONFIRMATORY [id number]-[id number] 17:00:00* Test Item Value Reference Range Interpretation Comme nts RPR (DX) W/REFL TITER AND$CONFIRMATOR Y TESTING-Q (test code = 58172-6) NON-REACTIVE NON-REACTI REPORT COMMENT:FASTING:MAHESH KRAMER (test code = WILLIAMS) PERFORMED BY [employer] [place]; [address] [place] [address]; SAMAN JOYNER MD,PHD. [facility] [id number] 18:58:00* Test Item Value Reference Range Interpretation Comme nts POCT PREG (test code = 1605) Negative On board controls acceptable with C Line (test code = 3574) Yes POCT PREG LOT # (test code = 3575) POCT PREG TEST DATE ( test code = 3576) [facility] [id number] 18:58:00* Test Item Value Reference Range Interpretation Comme nts POCT PREG (test code = 1605) Negative On board controls acceptable with C Line (test code = 3574) Yes POCT PREG LOT # (test code = 3575) POCT PREG TEST DATE ( test code = 3576) [facility] [id number] 17:26:34* Test Item Value Reference Range Interpretation Comme [facility] Case Report (test code = 3469340775) Surgical Pathology ?Case: [id number] ? Authorizing Provider: ?Norbert Gay MD ?Collected: ? 04/09/2023 0905 ?Ordering Location: ? ? [facility] ? ? Received: ?04/09/2023 1134 ? Center ? Pathologist: ? Karime Rubio MD ? Specimens: ? A) - STOMACH, 1. GASTRIC BX EVAL H. PYLORI ? B) - ESOPHAGUS, 2. DISTAL ESOPHAGEAL BX EVAL EOE ? C) - ESOPHAGUS, 3. PROXIMAL ESOPHAGEAL BX EVAL EOE ? Final Diagnosis (test code = [id number]) l2rsgMSyUORab5haQJUbpP FuZzEwMzNcZnRuYmpcdWMx IHtccnRmMVxhbnNpXGRlZm fzlrtuPWHbAYY7gkCyTVAi SVS8PLG1ZaFdOSKwDxWwJA JlBOBei7xmh8ZjaPNkfQPr HHuycZToyxWoca32oSX5kO 96VQ3eLXWqXwP8QTAohcP8 Zbr2CJZmSGPzwCLtI175a9 pqw7ggbsKhjBY1pCetYHMp dgltJxW3WOjdFVLonuhiCK f8WWhgOVHbgRY4FYUytDNk M9GcBUHySI8anld6POV2SY mvRKHhPxR9WQOgfIMuNSBt lXgoEDyps186QNS1RdKbWG OmjzOlrQnyqN8cVbCjGLmm PUHnWR2wR1HELEDJTVrpKk lPUFNZOlxwYXJcZmkyODMg QXODZNDZHhgHJF9MI45HZR GFVGDTYT8HYTFFCMeIJI9S BDQnA2gTJlaSUZFqecAuRX 5PIElOVEVTVElOQUwgTUVU QVBMQVNJQSBJREVOVElGSU VEXHBhclxmaTAgICAgICAt GC2VOQlcKRSQMI0RPQHJXe dBTklTTVMgSURFTlRJRklF RCBccGFyXGZzMjJccGFyXG EaVfUqPf4hOSRMNPkXG9VE RNTLIMWLXYndFSNYB7DSYF pccGFyICAgICAtIFNRVUFN J7BFHYVYIBKKZRqENL8mQ3 cVODHXDwYSBWHHR0qJD2gK PRlqN6jTXepJSMfjVKCdZX RmUA7pRt7qGUXVUDBDV5Nl L5VaHO3BNE8LFTkFLEuAOI RAD4RDXQvGUQrURAxOQT5L SUZJRUQgXHBhclxmczIyXH MmylldiaEcJOJlUUIDR4BJ QUdVUywgUFJPWElNQUwsIE QRL2XZJDfbvHCfJMQsNBKv AEWWVAAJB2ZEKAMLBCCOGI nYRD5fR8dEIFGZZdKVZHDR W8xEK0gJIMmwG3mBSfnYTK ekECUjNQPkPP2aJt8oYWIM XFLBX4CrZ2TvXD6RXA6MCR pXIMtVKHAMX8XEXZpLDGpK CDfLCH3YPNRNPPFuMRWsws rlWVEkHPRoea99JVI9AdMm c0G6LIVcLmJoGWDjJA6bhA hvUEHpNZ8vCNSjL6suhH1z elc9AiAmLESzTsH0FJWtpj Q8Pjh0LTLhGVgqr4qxp2Qk S1BouZXsgIj0r0hsHBRuJe A5wBDjEAfpU6zkljFbsRJe YBSdQAp6cMvoNgTkMDOoj3 lzcyBcZmNoYXJzZXQwIENh nRjtzuv9jA13HJOxnJ2qqJ BdLIdvpeZyBaI1EXhvFTLr PeW7WXLzsEYrBBOtK7ebEQ QwXGdyZWVuMFxibHVlMCA7 aTzxx1O1zKVbtKMkwRfyGq IqJhJuYBCIo5QiYOe0bQug G3LmTDAnRwW6vIIvWSDpMY cuQRDhRGHhimZ8tC84HHkw kkU9tDUhe5Lvk19zl907sA 1zwWYmVPN3ACHcWDSsaZJl FLDqWJF4JXVucCHlL0ygXD WkEC3yrpviXHvzVSjlHXNc rBM2FTWewTRwP9FcIDDtQH jeLACrtwh2VtCbPb9jsHDx lLmgXTwxr2zqz0gdeHBpFr v2SGCxJqLbSsjiNPugt9Dn q9wdGAPgdj1jWHN5iIYxjE brj3X9zQUoAFIxaJLtgaVb ZWBmWfO2SLmcSO4cmi56OL IqECF1kf4lrQOlmTuuzzGp zEZdJKnkU1AnJKJfd317OH TfX6XsDNDst8L4arClRgWj HZSukOS6lhH2CFMkWBf8sL MxouF4uiSonPPiV4gxyZ5r AYEiTE9bfkjli5pcSIjpPO xbIKQppRK0daM8PGAhzOXt H7XqfX6nNWYbOUyvATWvlb j8ZfMmZq1okXHqgPtyIHup YmtwYWdlXHBnbmNvbnRccG duZGVjXHBsYWluXHBsYWlu XGYwXGZzMjRccWxccGxhaW 7aKgHoAjUiVRmvJR4fSGQm H0gqhNJxUGPfEWPrB8hrAy WemH0flBgiWIzhKlDfCtPo MFxwYXIgSSBoYXZlIHBlcn HiwhPhyFxnxoS9hZQ7AXCp RDirQIFsPARtvRMzaj8ykY taICGiUN1xTZWujmVhLXhx aAbpSNyzLPQ4ECQopQCllR MgbWFkZSBieSByZXNpZGVu aPVaXMZckLtcq2Ipv9OzcA D9wP4xy5qsk8YqOPEedKR7 HI76czT8hU8oIOSbDV3eDN BqAH1heITdoDJuHMUll65h dGhpcyByZXBvcnQuXHBsYW luXGYyXGZzMjhcbGFuZzEw MzNcaGljaFxmMlxkYmNoXG WhLPqwQ0qcLqBcOxRtAEiw FNN7fDedefIeOOvqw5BiS4 YyMjAwMFxhbnNpXGRlZmxh eeaqTBYvLBJ5mrPoADUfJY tnAADyIQrhSe3baMJmaGda RvQqGETcg6lqssAKUGjxIo CpI361JWNiQIeyd7mhx0Er RUYxfTSmo1A5AFLTwupluD q8yTthA87bf8O4XoywU2ic PHHdCNXbB1LxRT0vCMBsQt u2NIU7CXL0IUBeXKTdO5Lq DK8vAJZkxUQkNEy0o9gbjY moTVIkVGZ9p9iwBIbhjnP4 LX6lxd4wlVe7h0owciJbEX WtPIItsZKCJFRvR7KppClz Lk3xrTg7xExbLisuGRM5Su n6AI1gxb94bjn2zRdaSSSl wunqEtQ5GJqcQOHyyqptRW p7JKxkOVWaiBZ6HTAaeGDm W2PjRIImKC3esbj6PFG8AM igGXXuMqL9SUYvwFPeJFNj fQhiNHbmo039ZNA3AfUhUG 4wK5Qbz3X9bK6doHXvILHr qAJnQnJeLDTrvv3mmKRgJO lyp3SmE21arMD6FYlsz5xy AE2iNyU6bhLuSJsys4ulsU 6cXuN9EGvlBX3vox52ZYIx RFY8gm0wgTFnjSvcrwCjbS IuVNxfK5VeAKUha593BFEf D4YgPWOsc7W2dsPxTbRnBN YrxJX4yvU4PRVnOLm5iAAi jsP8wfGiuZKgN1ubcT7xGL VjCS1qvvdjl2wbIIdtDVzh ULDtbBW5azB0TXBojINpL4 HpyC8iLWCnVGgsXYFxjgp7 ZhDwXr3khFHpsKztMYoqJn twYWdlXHBnbmNvbnRccGdu ZGVjXHBsYWluXHBsYWluXG RqBCWvQfWtfKYwHAqcc5Ys wpQwxMkwDPHuENf6qdYoyx bssNq6vGSxkFatEZAenYaz pB4lJnKbKsCfOGqgHL4qCE BkE1ukiHAwBIJwTHGoO6fe QjRseH5zjMklUBjnIqIbZy MyMFxsdHJjaFxwYXIgSSBo YXZlIHBlcnNvbmFsbHkgcm O9zTM1HCUoMCsgOQTlYWXp hAUbcg8ahRayKFBpEA3iWP FncmVlIHdpdGggYWxsIHN0 YXRlbWVudHMgbWFkZSBieS ByZXNpZGVudHMsIGZlbGxv g9Qpe5XdxKM4yO5si1mtm9 UqLMYxuCT1VE67wnP2cN8v XTWrBQ6aOIDpLL1qsVYnwH YpTVFno98eiCknnjDmLWUu cnQuXHBsYWluXGYxXGZzMj BcbGFuZzEwMzNcaGljaFxm CGqlEgJmFFYtDTziB0rhBp WuD0EpIJXwDrOidFEfARJa imskFNFem6MsEqWdz0uaXS nxb7szmOm4HJzkbRLrnphv NRjcmqQ0IKBiDWjvRBHvTU ZzMTRcbGFuZzEwMzNcaGlj aFxmMVxkYmNoXGYxXGxvY2 ufExWeV6XxJGKmWOXdlJDw S1dkGPU6iG2zr3lzw3OymN JyKnWpa6kowrYqORRmdOYc yrBqqXSdGKDls8BvJMDkIF WxFOXRUg9UEBAzqIKrM6q9 vMLJZG1rrJGtRBQcZTNmD3 WvNxVZyxAmi2O2BJLzpWIp BKESWVDxrJZqM1e9bAhrOI trCfo6YiMnsTrvnB7zFwNi TqDaTVkxKP6rGUBdN0ubfS AhPABzXPXhF4teFqHibI3j aFxmMVxjZjJcZnMyMFxsdH RbqHlvQDR9mY== Clinical Information (test code = [id number]) Kelsey Luke is a 38 year old female1. GASTRIC BX EVAL H. PYLORI2. DISTAL ESOPHAGEAL BX EVAL EOE3. PROXIMAL ESOPHAGEAL BX EVAL EOE Gross Description (test code = [id number]) p0rxfQFeCUSkgCRSDGX0RA YoXM2cxGcssHf5zLqgZRYq bfP5wSVkDPqik5lxEUG1o9 jmlrZYLfeaSKEuDE7mBPyj FBSkXT6iTvHhEBTeIzIfBT BhcGVydzEyMjQwXHBhcGVy cZC2LXKjRU3ysyloSMghSC uhDVTmxoA1XXXgqYGxR2Lm REObEL3wllzrOPL2OYRJAj xsVx0fuQPmyQdbUmAyXjZf YXJzZXQwXGZuaWwgQXJpYW w3xC6PRnegKGI3YLGTRolx HoeohIezn5CmeYOvHERpNE xcaWQgNTEwMDAgXFxkYiBP QeJkXnJ1ZXAbJWhnRdK8YV e1LBIMFSTjTew2EIX5QYR2 CDy2ULPwRO0pMNlsoQDgNU okEgtuKPubV018PMulKMPv U6HpD0GvIDlpOySdZSmlUM ByVTNkWIluNKYrH8QVCSKn VNm5Tdy4NzMoZWr3APwbF5 XJOAHmSSLhQAT4RkE8AnW9 KUh5LQCPYf7iAZs8APP3Za Y4CzO5ADtcPzTrNZWzPpPv WKZkNNJaNIorcFYxUS6eiI haGOSkSG3KZLAtTStkSRAh QoLxN0TVZ8fUMN7eGFlypC JjaFxmczIyXHBhciANClxw RVLxNV3JDNJeKOehZIb9rg VbVKNtHvCcIYZvY08tk6BQ v4RqHD4LRBs3doJfnagtgK 4kYLVrxxFuv9NhBHttzKyx SNNeWuSiRUxYtNRvpT5qqb OEAYqwDLRjW1RrbpPjRTze XNRcfr0aqIjtLXlxXnWuJQ Wjy7v0sOY1vYXicHL0hMRy jTjrTT3vrRBoBUOCZF64iG TjgsBrS4MwoHRuQjKLPLIk khBsMDpvZQM9xX0tfZVcTC 6qHGQdeyGfp5NkKD6xICPr hNObVFEnvanfzQAuNIr6fF WhSCKwZxXhiAppa7QxHAFz XVdnRL37nyBmOY9jSXggDZ 1gZCaeWA2uSMPyFOFcERZc LjYgeCAwLjIgeCAwLjEgY2 9nYzITnURbb5XzK6wdVP2n aXMgZmlsdGVyZWQgdGhyb3 QwlQLgIMRio8QbjIAtKPvb JV4uNWV0Hc9oqKGcRIFfgo Z0f2WzHNzxCUMyHz6PGDEl cSIJSSN9UW9bGFrkDKFbN9 RvA2AmukE2RZYimqMTTolh DhbesEmah8FqlOUyQNVpSF xcaWQgNTEwMDIgXFxkYiBP JnOcIiP5THYdNZerBmZ5OU j5BQZBPgKyRoTsJsQ3JiHw QYafWDb4LAf8DBjRWbPkOY r3Jer1EkN8GEC5WRA8PPvz fAQaNYdyt5DbMcVaRRMpNK rsokX9XGZykuWva1PhZDJu QQCjY0mtDdViWOCHPotitf IwIFNQRUNJTUVOIEJcZnMy MlxwYXIgDQpccGFyZCANCl xwbGFpblxsdHJjaFxmczIy VFFcxRFRHTZ4AT2hADNOCo szaBPtCNGxlBplRBwjgK0g TZOgTvIxBUKwZ8swYdXtXM PiMjUfLXCcE0wlWBKeUS3L L7AaV0laFZ7zMbWztxWhZQ KbcXMuOWDfeqHah2PhLUsv biBsYWJlbGVkIHdpdGggdG fgBYDriWjnqrVkfhUpHE0q UIJBXTRbnU9zVTYsRqTyv0 PwmUOqg08brOHwTIDkYTAZ TNH9BWnyOQ2SUuYnozMsT0 0tp7kreBMhv0IvePMnrQbc bRTxqECjBBDhdahzo0XoxP CjCS6dmIFjOS98CPfvjuHo gPjbqrHyz2U8KQEin7Y0IA BmcmFnbWVudHMgKHJhbmdp bmcgZnJvbSBsZXNzIHRoYW 6gYY0mHSYpIVFnAmZysEAz yfAjgnRevNTguJHlkA3qfn Khu87uNVRkMMB0STBkNXO1 JKWgMFVikFYzmdGeD0nfNA bsvZAxAdPSrEKlz6BfV8zx VS5lxASfVnesrFTxERZthN dwg2BcmVDfINQzq3JjlZIv MRkkWZ8jNQM4Sx6puDDeWI FqvwJ3s2PvXVioOJViSy0Y OJPnxWWENHW5AF2vIAdkMQ PqA3ZpF0WjbpP1KGHdbtSB SiazFflcxYkno5IdvFLaPF NnIFxcaWQgNTEwMDIgXFxk KfRHZxGnZwJ7JVQgSHqxAm H5IMx1HKMOIcQcLvFiFdR5 FsBhLhStUIg3ZMa5IJzSAb VlQSf7Dyu9UNVqQZU7OJX4 IBlorWIoCXdgs1VlSpPdHU HhEQcrjtL3TTLpdfQza1Jy AINvZTBeO2kgGbBuBGLKXv xmczIwIFNQRUNJTUVOIENc ZnMyMlxwYXIgDQpccGFyZC ANClxwbGFpblxsdHJjaFxm ciOsELFtoDXREDW9YB6hHV ANClxsdHJwYXJcbGluMFxy zQ6oROFnXpWcTUDqR1seRt XsIH8RM3RoS4biFL8yXfZs cyByZWNlaXZlZCBpbiBmb3 JtYWxpbiBsYWJlbGVkIHdp dGggdGhlIHBhdGllbnQncy UwUL9oBLGTBBXqjZ2wQEVs XvIdg2vueRYoSATrf6CoPG oeFIcgTaqpWVXwsMHYK7Es TJRsTXNdb14fwSP8pkSzZm CmVRFgqt6pcP7gAWVnfQl7 xtOur7j2G4SozUZveuMnE2 ZcMUIgf22ltIC2sRSixEEe FoTwF47akjIrOLfzLX3acN 3nUJVlv79hKB9bUKGhFBKn MyBjbSBpbiBncmVhdGVzdC AajC4irmRzl81vRJSkUOF5 PDBjDHW6WCNgXLUzqLEwyu RsP4hbNObvgBEhKqVDnPDu j2XxW8mtJO0tgSQuXosnlS ZyYQXwcQhry3HooEDrWOYr d2FngQRqTHuoBO3bKHZ2Nt 4diYIzTJWlxsJ8z3JcLZtp MDSbPanvDKTsBAtdj4DoDY UauQWUq4LmEA6OQNBrubUQ QoqdZARrHPIesSBJn9MsYL ZSTj8htbiuFGJsEFJ4a1Pi UMFDNIjZR3FCXW5AFVUnqV VZIFG4SQ0oJDbcTAZyF9Yw X9YwuvF3l3bumIqaq1HgcU QtXM7klVLnWA4GBPUqbhGq DQp9 Disclaimer (test code = [id number]) l3tscRZnIBEdz2ddJXEjgH FuZzEwMzNcZnRuYmpcdWMx PVtmmeOfTLekc4SnN7LqZe AwMFxhbnNpXGRlZmxhbmcx XRSsVKZ0hpZcMIMrMEdxQN TcOEvuMz9caCZthLkwDgDo IACiw5euzsDEEAeuJmMuJ9 59RSGiDJtnl0vnl6IfYNUw jIRxj3X2YNUCpdgzzXh5cE qoC99jh9J6MlliB9cnBCWd DYThZ1OqWR3bKKEuQoe5XB D5YHM4PKRqPRNxF5EzOE4u JXYjtBKwHHu5w9vavKgdLY HrTYD3r2coMWvwllYhJZ2c tx2cpFc6l8sajcMtINToOI DccQZGBKMaH5UptDktIg7i aMo7mIclTqdzZSE8Hmf5FZ 4qkr13vmw2gYniYUMuyhis GyR4SKsbEUEeedqzUZk0XB foQDJetQE7GFTmlLRsQ1Za FZNeTO0pgkj4XRH7BHbhPB MsGkF1GYDxiSYbCMKdrBrw BIcgs038EDU4GoFdTJ7aG1 Ngx1C5cI1ioBYcEKYwfDJy DeCaYONeoj7lrKDiLCbsg8 QfZDU0roJ1qSGwlWObPSIs FB59Yvrzw6VlShijh6QcV3 1puEZ5DJjam2itKR7zAmZ4 glXjSUgjd2kwoK4kUrP5TW fyMI8vKS6wPXXatQ0xdtqv XHBnYnJkcmhlYWRccGdicm WrLq3mcFnpJYE2SLjsC3kd iW4oWfI4CCawT9nrtD8sLU y7CKczpYY1HPLorP1hOD9u tjydh0ikHVwfPKaxGYLrdn F9hdD8IERplNXqW1MvhO5g XBTjIQ2opsodh9qzULS6YZ agKMGlHRB6PwDnXCGrx2Lw wtv2NsOii1JskXKsFRddJ5 6ll385IFNntzEnS8yxfBBy dztubTOzspzwDTeiadL1PD NfosGrm0CfCOPlVGA3IFci HMwzfCXsFPLazUvla9ryD6 RscGFyXHBsYWluXGYxXGZz MjBcbGFuZzEwMzNcaGljaF rxCUdfAxUwHFDuJWhyD1oe ZiGaX8DcOVSyAnBiuHMpW6 ggVGhpcyByZXBvcnQgbWF5 NBhnF6y9IYXsmmFrjLb2tj DtOnNpISHgVPG2NUeiaFSo FYPxz1ZzqerhkHYqXs6arZ SeEMJjoZ9tUSZiISFxDMea EW4bqTy0VFWZmGGpeXXdEz HIREFgCY03nsNmJTNIircx w9Y1BAxxUEIyz2UpkTUsA7 ipu9GbQUYsa67lIV7jc6V0 q4tfCUZ7KQ0tm7BtJHQxqF VliIInVQUxv4Qnlamsv2Gp CMTckbNai0HiQGHofrJqfM ZbAQGivzGxbz5vcxKaIRPx MWMoB6YkqpuabWhwtrXfHW Clai2fcwRqCAE5AMFQUFYc MBKhc4KrmP8bsAMDIYL9oZ Qsxd0fnnHAbSKeEWXkms79 VRRzYH4pU9ogFEWoPRCgjd FemJKza2BeVLFnxRV6iQKe HC2XDyRNs43iHEZiIXVFss OgIRUydLhqjHH0onH8wF1p IChGREEpLlx+IFRoZSBGRE KdNQ5aiwZik0ZkobGsgJtq KRBomYDdk0GfcPWml0OepT yoa8FikYDmoSFnDC2oYHEf clxwYXIgVVRNQiBMYWJvcm E4l6SeXDFlPFUzXSZ2wEdz sez0OAElzP3tTBOvF9zfso iuWLgmYHCdl6QkiH6paOXF hHZuh0OhaHJboNVJuUKzPW 0tvkOfOJrNRBlOQJN5meJs VCKgj4PpTLwgI5kyB49cmX peuRh1wBZ7TGC5tO7pOum+ IFxwYXJccGFyIEFwcHJvcH XwZFRidEqrdrQiS6AqxgRp xR5xnPWfmbDbCA5bUZ4zK7 V7eDGyYGXbkbYzy2qpFAcl dmUgYmVlbiByZXZpZXdlZC Foa4ZfNEjsJAV2IFrbimLq bmNsdWRpbmcgSCZFLCBTcG TowXVvBLU7ZGqyhcVkwmGe UL7dcS7kwLetjC0dcQYczC O1dnodETIwYGOpzVqlHUDy QP9slAhwyX7bJgJqXkLfLI dkSE4hGHRjT8ogzDWxRTCl UHDwY9rwLcHekP8qdBabBM xjZjJcZnMyMFxwYXJccGFy XHBsYWluXGYxXGZzMjBcbG FuZzEwMzNcaGljaFxmMVxk TyWaBWMwFWfuA7uzTcXmY1 EdEOZbKjVfkXNzL0tcFGej RJW2XTBfQH4xoVPzNR90nK Ooy9lkZZqbjYxdnn4oI09j wCWkIOwhjXehAODnc87en1 AzLBMuowPyuz1pCQTasgZ1 fT9fYZYnaMltGORrkNXcGG Heb2BsYCuguHLxbvFsIYqo YIYqVSJpzKQfwjA8cjAbkb BeveFlLDLkjEahGLCfr1Hd RVKqQSysw0Hwkr4hhIFpXS UsitRTmUcgqTElqZ3iF4Ke JXTxADDduq3kLLOcnE0jLE ikg0IpcwceATKnSFJuZRBv iyZkej6iIHQelJNMLV8UMY watCCex3UcnaRiK2zHFZK5 NUQwNjYwMjgxKSBleGNlcH UhHOCyzl75SADcrY0muCyk HXUtcY8giJ1ijZdaaW7vQs DcAoJsESyxUB7zFMQsO3dt bRZnSYArVDLzD2fsRkXwnD 9jaFxmMVxjZjJcZnMyMFxw YXJ9fQ== Embedded Images (test code = [id number]) [facility] GLUCOSE (AUTOMATED)2023-04-09 13:04:56* Test Item Value Reference Range Interpretation Comme nts POCT GLU (test code = 8994695771) 240 mg/dL 70-110 H Lab Interpretation (test cod e = 81975-7) Abnormal [facility] GLUCOSE (AUTOMATED)2023-04-09 13:04:56* Test Item Value Reference Range Interpretation Comme nts POCT GLU (test code = 5670383745) 240 mg/dL 70-110 H Lab Interpretation (test cod e = 44296-1) Abnormal [facility] [id number] 00:00:00* Test Item Value Reference Range Interpretation Comme nts POCT PREG (test code = 1605) Negative On board controls acceptable with C Line (test code = 3574) Yes POCT PREG LOT # (test code = 3575) POCT PREG TEST DATE ( test code = 3576) [facility] [id number] 00:00:00* Test Item Value Reference Range Interpretation Comme nts POCT PREG (test code = 1605) Negative On board controls acceptable with C Line (test code = 3574) Yes POCT PREG LOT # (test code = 3575) POCT PREG TEST DATE ( test code = 3576) [id number] 05:21:47 * Test Item Value Reference Range Interpretation Comments Anticardiolipin Antibody IgG (test code = 8379090283) 11.9 See_Comment H [Automated message] The system which generated this result transmitted reference range: 0.0 - 10.0 GPL. The reference range was not used to interpret this result as normal/abnormal . Anticardiolipin Antibody IgM (test code = 3752309934) 1.8 See_Comment [Automated message] The system which generated this result transmitted reference range: 0.0 - 10.0 MPL. The reference range was not used to interpret this result as normal/abnormal . Anticardiolipin Antibody IgA (test code = 1853453497) 1.5 See_Comment [Automated message] The system which [...] 4: 2210-4 Lab Interpretation (test code = 91365-8) [facility] [id number] 05:21:47 * Test Item Value Reference Range Interpretation Comments Anticardiolipin Antibody IgG (test code = 3766949634) 11.9 See_Comment H [Automated message] The system which generated this result transmitted reference range: 0.0 - 10.0 GPL. The reference range was not used to interpret this result as normal/abnormal . Anticardiolipin Antibody IgM (test code = 8989728176) 1.8 See_Comment [Automated message] The system which generated this result transmitted reference range: 0.0 - 10.0 MPL. The reference range was not used to interpret this result as normal/abnormal . Anticardiolipin Antibody IgA (test code = 7538032234) 1.5 See_Comment [Automated message] The system which [...] 4: 2210-4 Lab Interpretation (test code = 23860-4) [facility] [id number] 05:21:31* Test Item Value Reference Range Interpretation Comments Anti-B2 Glycoprotein 1 IgG (test code = 8073010745) 2.8 See_Comment [Automated message] The system which generated this result transmitted reference range: 0.0 - 20.0 SGU. The reference range was not used to interpret this result as normal/abnormal. Anti-B2 Glycoprotein 1 IgM (test code = 5163472609) 0.6 See_Comment [Automated message] The system which generated this result transmitted reference range: 0.0 - 20.0 SMU. The reference range was not used to interpret this result as normal/abnormal. Anti-B2 Glycoprotein 1 IgA (test code = 0324252135) 2.6 See_Comment [Automated message] The system which [...] losses and/or thrombocytopenia. TEST PERFORMED AT:[facility]. [id number] [place] [address] [facility] [place] [address] Lab Interpretation (test code = 03189-3) [facility] [id number] 05:21:31* Test Item Value Reference Range Interpretation Comments Anti-B2 Glycoprotein 1 IgG (test code = 2152535765) 2.8 See_Comment [Automated message] The system which generated this result transmitted reference range: 0.0 - 20.0 SGU. The reference range was not used to interpret this result as normal/abnormal. Anti-B2 Glycoprotein 1 IgM (test code = 1571295827) 0.6 See_Comment [Automated message] The system which generated this result transmitted reference range: 0.0 - 20.0 SMU. The reference range was not used to interpret this result as normal/abnormal. Anti-B2 Glycoprotein 1 IgA (test code = 0137597398) 2.6 See_Comment [Automated message] The system which [...] losses and/or thrombocytopenia. TEST PERFORMED AT:[facility]. [address] [place] [address] [place] [address] Lab Interpretation (test code = 19770-3) Normal [facility] GLUCOSE (AUTOMATED)2022-12-11 15:26:47* Test Item Value Reference Range Interpretation Comme nts POCT GLU (test code = 5707948046) 91 mg/dL 70-110 Lab Interpretation (test cod e = 65825-0) Normal [facility] GLUCOSE (AUTOMATED)2022-12-11 15:26:47* Test Item Value Reference Range Interpretation Comme nts POCT GLU (test code = 3442993264) 91 mg/dL 70-110 Lab Interpretation (test cod e = 08352-8) Normal [facility] [id number] 14:48:00* Test Item Value Reference Range Interpretation Comme nts POCT PREG (test code = 1605) Negative On board controls acceptable with C Line (test code = 3574) Yes POCT PREG LOT # (test code = 3575) POCT PREG TEST DATE ( test code = 3576) Lab Interpretation (test cod e = 39450-3) Normal [facility] [id number] 14:48:00* Test Item Value Reference Range Interpretation Comme nts POCT PREG (test code = 1605) Negative On board controls acceptable with C Line (test code = 3574) Yes POCT PREG LOT # (test code = 3575) POCT PREG TEST DATE ( test code = 3576) Lab Interpretation (test cod e = 22470-8) Normal [facility] SARS-COV-2 ANTIGEN (BINAX NOW)2022-11-29 17:40:00* Test Item Value Reference Range Interpretation Comme nts POCT SARS-COV-2 ANTIGEN (marie t code = 57496-1) Not Detected Not Detected On board controls acceptable with C Line (test code = 3574) Yes [facility] SARS-COV-2 ANTIGEN (BINAX NOW)2022-11-29 17:40:00* Test Item Value Reference Range Interpretation Comme nts POCT SARS-COV-2 ANTIGEN (marie t code = 26558-6) Not Detected Not Detected On board controls acceptable with C Line (test code = 3574) Yes [facility] MOLECULAR [id number] 17:14:55* Test Item Value Reference Range Interpretation Comme nts POCT Molecular Strep (test c ode = 36893-5) Negative Negative Lab Interpretation (test cod e = 89183-5) Normal [facility] MOLECULAR [id number] 17:14:55* Test Item Value Reference Range Interpretation Comme nts POCT Molecular Strep (test c ode = 48440-1) Negative Negative Lab Interpretation (test cod e = 94908-2) Normal [facility] GLUCOSE (AUTOMATED)2022-09-15 16:40:41* Test Item Value Reference Range Interpretation Comme nts POCT GLU (test code = 9328284308) 133 mg/dL 70-110 H Lab Interpretation (test cod e = 53758-6) Abnormal [facility] GLUCOSE (AUTOMATED)2022-09-15 16:40:41* Test Item Value Reference Range Interpretation Comme nts POCT GLU (test code = 3400272972) 133 mg/dL 70-110 H Lab Interpretation (test cod e = 73540-8) Abnormal [facility] [id number] 16:35:00* Test Item Value Reference Range Interpretation Comme nts POCT PREG (test code = 1605) Negative On board controls acceptable with C Line (test code = 3574) Yes POCT PREG LOT # (test code = 3575) POCT PREG TEST DATE ( test code = 3576) Lab Interpretation (test cod e = 04115-8) [facility] [id number] 16:35:00* Test Item Value Reference Range Interpretation Comme nts POCT PREG (test code = 1605) Negative On board controls acceptable with C Line (test code = 3574) Yes POCT PREG LOT # (test code = 3575) POCT PREG TEST DATE ( test code = 3576) Lab Interpretation (test cod e = 19157-0) [facility]; SPECIAL COAGULATION [id number] 22:21:22Related Clinical History The patient is 37 [...] or complications in women. 09/05/2022 4:21 PM [facility] SERVICESRecommendations If clinically indicated, repeat the antiphospholipid antibody panel in 12 weeks, to evaluate the patient for antiphospholipid syndrome. ? 09/05/2022 4:21 PM [facility] Sendout- [id number] Lupus Anticoagulant Reflexive [id number] 14:40:11* Test Item Value Reference Range Interpretation Comme nts Miscellaneous Test (test code = 6386765349) See scanned report Performing Lab (test code = 2964993241) [facility] [id number] 03:44:30 * Test Item Value Reference Range Interpretation Comments Anticardiolipin Antibody IgG (test code = 4805477225) 20.9 See_Comment H [Automated message] The system which generated this result transmitted reference range: 0.0 - 10.0 GPL. The reference range was not used to interpret this result as normal/abnormal . Anticardiolipin Antibody IgM (test code = 9995111937) 1.5 See_Comment [Automated message] The system which generated this result transmitted reference range: 0.0 - 10.0 MPL. The reference range was not used to interpret this result as normal/abnormal . Anticardiolipin Antibody IgA (test code = 3471756414) 0.1 See_Comment [Automated message] The system which [...] 4: 2210-4 Lab Interpretation (test code = 93343-5) [facility]normal [facility] [id number] 03:44:30 * Test Item Value Reference Range Interpretation Comments Anticardiolipin Antibody IgG (test code = 3633598878) See_Comment H [Automated message] The system which generated this result transmitted reference range: 0.0 - 10.0 GPL. The reference range was not used to interpret this result as normal/abnormal . Anticardiolipin Antibody IgM (test code = 0459070310) See_Comment [Automated message] The system which generated this result transmitted reference range: 0.0 - 10.0 MPL. The reference range was not used to interpret this result as normal/abnormal . Anticardiolipin Antibody IgA (test code = 7565182683) See_Comment [Automated message] The system which generated [...] 4: 2210-4 Lab Interpretation (test code = 13382-7) [facility]normal [facility] GLYCOP[facility] I [id number] 03:40:36* Test Item Value Reference Range Interpretation Comments Anti-B2 Glycoprotein 1 IgG (test code = 6553596005) 3.0 See_Comment [Automated message] The system which generated this result transmitted reference range: 0.0 - 20.0 SGU. The reference range was not used to interpret this result as normal/abnormal. Anti-B2 Glycoprotein 1 IgM (test code = 2661892545) 1.5 See_Comment [Automated message] The system which generated this result transmitted reference range: 0.0 - 20.0 SMU. The reference range was not used to interpret this result as normal/abnormal. Anti-B2 Glycoprotein 1 IgA (test code = 3813420376) 5.1 See_Comment [Automated message] The system which [...] losses and/or thrombocytopenia. TEST PERFORMED AT:[facility]. [address] [place] [address], [address] [facility] [place] [address] Lab Interpretation (test code = 90416-3) Normal [facility] GLY[facility]OTE[facility] I [id number] 03:40:36* Test Item Value Reference Range Interpretation Comments Anti-B2 Glycoprotein 1 IgG (test code = 1004174180) See_Comment [Automated message] The system which generated this result transmitted reference range: 0.0 - 20.0 SGU. The reference range was not used to interpret this result as normal/abnormal. Anti-B2 Glycoprotein 1 IgM (test code = 0786499971) See_Comment [Automated message] The system which generated this result transmitted reference range: 0.0 - 20.0 SMU. The reference range was not used to interpret this result as normal/abnormal. Anti-B2 Glycoprotein 1 IgA (test code = 7297059913) See_Comment [Automated message] The system which generated [...] losses and/or thrombocytopenia. TEST PERFORMED AT:[facility]. [address] [place] [address] [place] [address] Lab Interpretation (test code = 81819-8) Normal [facility] [id number] 17:19:00* Test Item Value Reference Range Interpretation Comme [facility] POCT PREG (test code = 1605) Negative On board controls acceptable with C Line (test code = 3574) Yes POCT PREG LOT # (test code = 3575) POCT PREG TEST DATE ( test code = 3576) [facility] [id number] 17:19:00* Test Item Value Reference Range Interpretation Comme nts POCT PREG (test code = 1605) Negative On board controls acceptable with C Line (test code = 3574) Yes POCT PREG LOT # (test code = 3575) POCT PREG TEST DATE ( test code = 3576) [facility] [id number] 20:18:00* Test Item Value Reference Range Interpretation Comme nts POCT PREG (test code = 1605) Negative On board controls acceptable with C Line (test code = 3574) Yes POCT PREG LOT # (test code = 3575) POCT PREG TEST DATE ( test code = 3576) Lab Interpretation (test cod e = 60566-0) Normal [facility] [id number] 20:18:00* Test Item Value Reference Range Interpretation Comme nts POCT PREG (test code = 1605) Negative On board controls acceptable with C Line (test code = 3574) Yes POCT PREG LOT # (test code = 3575) POCT PREG TEST DATE ( test code = 3576) Lab Interpretation (test cod e = 27849-6) Normal [facility] [id number] 17:01:00* Test Item Value Reference Range Interpretation Comme nts POCT PREG (test code = 1605) Negative On board controls acceptable with C Line (test code = 3574) Yes POCT PREG LOT # (test code = 3575) POCT PREG TEST DATE ( test code = 3576) [facility] [id number] 17:01:00* Test Item Value Reference Range Interpretation Comme nts POCT PREG (test code = 1605) Negative On board controls acceptable with C Line (test code = 3574) Yes POCT PREG LOT # (test code = 3575) POCT PREG TEST DATE ( test code = 3576) [facility] History and Physical Notes Date/Time Note Provider Source 2024-03-24 11:02:43 COLORECTAL SURGERY HP NOTE HPI: 03/24/24: No interval changes. 01/15/24: Ms Luke returns with c/o rectal pain constantly. Describes pain as burning, sharp, limits quality of life, not associated with Bms, but Bms make pain worse. Describes bumps around anal verge. Describes using wet wipes daily for hygiene. Denies constipation/diarrhea. Denies prolapsing tissue per anus. Denies rectal bleeding but notes some blood spots on toilet paper with wiping. 01/24/22: Ms Luke is doing well post hemorrhoidectomy. She does reports intermittent spotting after BMs with random episodes of mild sharp pain around anus throughout the day not related to BMs. She describes her stool as soft but thin in caliber like a noodle. She reports intermittently taking miralax as needed. Reports mild nausea in clinic today and several episodes of diarrhea over last few days. Denies any sick contacts at home. No additional issues at this time 11/22/21 Ms Luke is still experiencing significant pain after procedure. Denies fever/chills. Reports mild bloody drainage. Reports welling in area that feels like hemorrhoids. Is taking scheduled tylenol/ibuprofen and increased her dosing of gabapentin to 400 TID. She has not been taking tizandine. Feels severe muscle spasms with sitz baths and irrigation but has been putting epsom salts in stiz bath. Taking miralax BID without constipation/diarrhea issues. 11/08/21 Kelsey Luke is a 36 year old female who presents for follow up of hemorrhoids. They were last seen in colorectal surgery clinic on 01/07/21. Patient reports she tolerated medical management until a recent flare up a couple days ago. During this episode, she reports inflammation, pain with defecation, blood in stool, and bouts of diarrhea and constipation. She denies fever, chills, and vomiting. She has tried fiber, water, and hemorrhoid foam prn, which have not provided any relief during this episode. Patient is interested in surgical intervention at this time. Last colonoscopy was done in 05/2020, and the results were benign. 01/07/21 Kelsey Luke is a 35 year old female with PMH DM, PID, chronic low back pain, fatty liver, who presents for preop visit for hemorrhoids. She states that her pain and discomfort at last visit has improved with diet modification, increased water intake, and hemorrhoid foam (she uses sparingly). She is having regular BM and no bleeding recently. Allergies Kelsey is allergic to buspirone and latex. Medications Outpatient Medications Prior to Visit Medication Sig Dispense Refill MECLIZINE 25 mg tablet TAKE 1 TABLET BY MOUTH EVERY 8 HOURS NEEDED 20 tablet 0 tiZANidine 4 mg tablet TAKE 1 TABLET BY MOUTH THE MORNING, AND 1 TABLET BY MOUTH IN THE AFTERNOON, AND 2 TABLETS AT BEDTIME 120 tablet 1 atorvastatin 20 mg tablet Take 1 tablet by mouth at bedtime. 30 tablet 0 tirzepatide 15 mg/0.5 mL subcutaneous injection inject 15 mg under the skin weekly. 2 mL 1 mupirocin 2 % ointment APPLY TO AFFECTED AREA FOUR TIMES A DAY PROMETHAZINE 12.5 mg tablet TAKE 2 TABLETS BY MOUTH EVERY 6 HOURS NEEDED FOR NAUSEA AND VOMITING 30 tablet 0 ESCITALOPRAM OXALATE 20 mg tablet TAKE 1 TABLET BY MOUTH IN THE MORNING 90 tablet 0 empagliflozin (JARDIANCE) 25 mg Tab tablet Take 1 tablet by mouth every morning. 90 tablet 1 insulin NPH (NOVOLIN N NPH U-100 INSULIN) 100 unit/mL injection inject 5 Units under the skin every morning and evening. 9 mL 2 metFORMIN 1,000 mg tablet Take 1 tablet by mouth in the morning and 1 tablet in the evening. Take with meals. 180 tablet 1 pioglitazone 30 mg tablet Take 1 tablet by mouth in the morning. 90 tablet 1 tirzepatide (MOUNJARO) 12.5 mg/0.5 mL subcutaneous injection inject 12.5 mg under the skin weekly. 2 mL 2 celecoxib 100 mg capsule TAKE 1 CAPSULE BY MOUTH IN THE MORNING AND 1 IN THE EVENING WITH MEALS 60 capsule 3 GABAPENTIN 600 mg tablet TAKE 1 TABLET BY MOUTH IN THE MORNING AND 1 IN THE EVENING 90 tablet 2 fluconazole 200 mg tablet Take 1 tablet by mouth every 3 (three) days. 3 tablet 0 gabapentin 800 mg tablet Take 1 tablet by mouth at bedtime. 90 tablet 3 Miscellaneous Medical Supply Kit Use as directed 1 Kit 0 lidocaine HCL (ASPERCREME, LIDOCAINE HCL,) 4 % Crea Apply 1 Each to area(s) in the morning and 1 Each in the evening. 118 mL 2 pantoprazole 40 mg EC tablet Take 1 tablet by mouth in the morning. 90 tablet 1 Kquijkjtwv-Oxjfmgfltuhhm-Kmsq 50-300-40 mg per capsule TAKE 1 CAPSULE BY MOUTH EVERY 6 HOURS NEEDED fluticasone propionate 50 mcg/actuation nasal spray Use 1 [place] in each nostril in the morning. 16 g 1 ondansetron 4 mg tablet TAKE 1 TABLET BY MOUTH EVERY 12 HOURS NEEDED albuterol 90 mcg/actuation inhaler Inhale 2 Puffs every 6 (six) hours as needed for Wheezing or Shortness of Breath. 8.5 g 0 No facility-administered medications prior to visit. Histories Past Medical History: Diagnosis Date Allergic rhinitis 2003 [...] teenager PID (pelvic inflammatory disease) Pre-eclampsia 04/23/2017 Past Surgical History: Procedure Laterality Date COLONOSCOPY N/A 05/28/2020 Surgeon: Norbert Gay MD; Location: [facility] COLONOSCOPY 05/28/2020 COLPOSCOPY ESOPHAGOGASTRODUODENOSCOPY N/A 04/09/2023 Surgeon: Norbert Gay MD; Location: [facility] HEMORRHOIDECTOMY N/A 11/14/2021 Surgeon: Azalia Michel MD; Location: [facility] SACROILIAC JOINT INJECTION Right 10/18/2020 Surgeon: Curtis Morley MD; Location: [facility] Social History Socioeconomic History Marital status: Single Occupational History 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: [employer] Tobacco Use Smoking status: Every Day Smokeless tobacco: Current Tobacco comments: vapes Vaping Use Vaping status: Some Days Substance and Sexual Activity Alcohol use: No Drug use: No Sexual activity: Yes Partners: Male control/protection: Inserts Social History Narrative 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 Social Determinants of Health Financial Resource Strain: [...] 0 min Stress: Stress Concern Present (03/06/2023) [place] [employer] - Occupational Stress Questionnaire Feeling of Stress : To some extent Social Connections: Moderately Isolated (03/06/2023) Social Connection and Isolation Panel [NHANES] Frequency of Communication with Friends and Family: Twice a week Frequency of Social Gatherings with Friends and Family: Once a week Attends Tenriism Services: Never Active Member of Clubs or Organizations: No Attends Club or Organization Meetings: Never Marital Status: Living with partner Housing Stability: Unknown (03/06/2023) Housing Stability Vital Sign Unable to Pay for Housing in the Last Year: No Unstable Housing in the Last Year: No Family History Adopted: Yes Problem Relation Age of Onset Diabetes Paternal Grandfather Allergies Brother Just has bad allergies/ seasonal Arthritis Father Not sure when it started. Cataracts NoFHx Glaucoma NoFHx Macular degeneration NoFHx Retinal detachment NoFHx Review of Systems Per HPI Assessment/Plan Kelsey Luke is a 36 year old female known internal and external hemorrhoids refractory to medical treatment, now s/p hemorrhoidectomy 11/14/21, returning with severe perianal dermatitis. - plan for EUA and biopsies of severe dermatitis given h/o abnormal pap smear- All risks benefits and alternatives discussed with patient, including the risk of bleeding, infection, damage to surrounding tissues and need for more invasive measures to address these complications, and he is amenable to proceed with procedure. Azalia Michel MD 03/24/2024 11:03 AM Colon and Rectal Surgery [facility] 2023-04-09 08:44:32 Formatting of this n ote is different from the original. Endoscopy H & P Age: [age] year old Sex: female ASA Class: III Indication: chronic nausea, heartburn, dysphagia, Kelsey Luke is a 38 year old female [...] No family history of esophageal or gastric cancer. Histories: Past Medical History: Diagnosis Date Allergic rhinitis 2003 [...] Laterality Date COLONOSCOPY N/A 05/28/2020 Surgeon: Norbert Gay MD; Location: [facility] COLONOSCOPY 05/28/2020 COLPOSCOPY HEMORRHOIDECTOMY N/A 11/14/2021 Surgeon: Azalia Michel MD; Location: [facility] SACROILIAC JOINT INJECTION Right 10/18/2020 Surgeon: Curtis Morley MD; Location: [facility] No current facility-administered medications for this encounter. 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 Social Determinants of Health Financial Resource Strain: [...] 0 min Stress: Stress Concern Present (03/06/2023) [place] [employer] - Occupational Stress Questionnaire Feeling of Stress : To some extent Social Connections: Moderately Isolated (03/06/2023) Social Connection and Isolation Panel [NHANES] Frequency of Communication with Friends and Family: Twice a week Frequency of Social Gatherings with Friends and Family: Once a week Attends Tenriism Services: Never Active Member of Clubs or Organizations: No Attends Club or Organization Meetings: Never Marital Status: Living with partner Housing Stability: Unknown (03/06/2023) Housing Stability Vital Sign Unable to Pay for Housing in the Last Year: No Unstable Housing in the Last Year: No Physical Exam: Mental Status: alert, oriented x3 Abdomen: bowel sounds present Spleen Tip: non-palpable Hepatomegaly: no Mass: not present Tenderness: no Impression and Plan: Kelsey Luke is a 38 year old female [...] to the patient about the procedure. Norbert Gay MD Etl Consultant of Internal Medicine Division of Gastroenterology and Hepatology [facility] - Health Notes Date/Time Note Provider Source 2024-07-02 16:37:41 Images from the original note were not included. PA approved 11/20/24 UCT SAFETY ASSOCIATE Jess Hayes RN [facility] 2024-07-02 16:23:53 Images from the original note were not included. UCT SAFETY ASSOCIATE Kennedi Engle [facility] 2024-06-24 13:04:53 Medication refilled per policy: Last office visit: 06/20/24 Next office visit: 08/25/24 Requested Prescriptions Pending Prescriptions Disp Refills MECLIZINE 25 mg tablet [Pharmacy Med Name: Meclizine HCl 25 MG Oral Tablet] 20 tablet 0 Sig: TAKE 1 TABLET BY MOUTH EVERY 8 HOURS NEEDED Last fill date: 04/21/24 Notes: Chronic nausea IA Huang LVN [facility] 2024-06-23 10:25:13 Patient has follow up this week 06/25 to discuss denial. Spoke with patient, verbalized understanding UCT SAFETY ASSOCIATE Radha Chew RN [facility] 2024-06-20 16:08:55 Routing message to correct clinic. IA Leon RN [facility] 2024-06-20 12:28:41 Kelsey Luke is a 39 year old female calling to speak to nurse regarding denial. Patient states insurance needs more clarification IA Rain [facility] 2024-06-20 11:30:00 Addended by: SOPHIA RAMIREZ PA-C on: 06/20/2024 02:54 PM Modules accepted: Orders [facility] 2024-06-17 11:26:14 Patient was identified with name and date of during prescreening call. Procedure was verified. Discussed preop instructions with pt. Nothing by mouth after midnight night before [...] and leave valuables at home. Address is [address] [place] [address] in [place]. If taking insulin patient is to take one half of normal evening dose day prior to procedure and no insulin the morning of. Pt to follow physician instruction regarding blood thinners and NSAIDS. Pt verbalizes understanding. Arrival time of 1300 given. UCT SAFETY ASSOCIATE Dorothy Escalante RN [facility] 2024-05-21 09:32:06 Patient has been scheduled, closing encounter Verena Bartlett [facility] 2024-05-20 10:48:03 Images from the original note were not included. Notes: Last Refilled: Name from pharmacy: Promethazine HCl 12.5 MG Oral Tablet Will file in chart as: PROMETHAZINE 12.5 mg tablet Sig: TAKE 2 TABLETS BY MOUTH EVERY 6 HOURS NEEDED FOR NAUSEA AND VOMITING Disp: 30 tablet Refills: 0 Start: 05/20/2024 Class: eRX For: Chronic nausea Last ordered: 4 weeks ago (04/21/2024) by Adelaida Ramos MD Last refill: 04/21/2024 Rx #: [id number] Anti-nausea (Other) [id number]/2024 10:44 AM Protocol Details This refill cannot be delegated Manual Review: Women's Health only allowed to refill requests Valid encounter within last 12 months To be filled at: [id number] - [place], [place] - [address] [place] [address] Recent Visits Date Type Provider Dept 04/21/24 Office Visit Adelaida Ramos MD [facility] Showing recent visits within past 540 days with a meds authorizing provider and meeting all other requirements Future Appointments Date Type Provider Dept 08/25/24 Appointment Adelaida Ramos MD [facility] 09/02/24 Appointment Adelaida Ramos MD [facility] Showing future appointments within next 150 days with a meds authorizing provider and meeting all other requirements Judi Olson MA [facility] 2024-05-16 09:23:49 I called patient and left a message to call back to schedule appointment. Karen Goetz [facility] 2024-05-15 14:50:22 Kelsey Luke is a 39 year old female and is returning a missed call from Marlene about scheduling for Dr. Potter. Please advise. Laurence Ward [facility] 2024-04-21 15:00:00 Pelvic ultrasound was completely normal. [facility] 2024-04-18 11:08:43 Pt was called and notified. Jeanine Calvert MA 04/18/2024 11:09 AM Jeanine Calvert MA [facility] 2024-04-18 11:02:24 Patient is returning call regarding test results. Wendie Clemente [facility] 2024-04-16 11:17:48 OSMAN: 02/04/2024 NOV:05/05/2024 Plan: Continue with Akbar to 12.5 mg weekly Refills sent to pharmacy. Emiliana Hsieh MA 04/16/2024 11:30 AM Emiliana Hsieh MA [facility] 2024-04-07 16:03:31 Images from the original note were not included. Prior Authorization required for Celecoxib 100MG capsules. TwoF PRICE: [id number] [facility] [address] [place] [address] Bia Zelaya MA 04/07/2024 4:12 PM Bia Zelaya MA [facility] 2024-04-07 09:43:42 Medication not refilled: Requested Prescriptions Pending Prescriptions Disp Refills proMETHazine 12.5 mg tablet 30 tablet 0 Last fill date: 03/19/24 Rachele Huang LVN [facility] 2024-04-05 17:06:56 Kelsey Luke is a 39 year old female Patient needing oxycodone refilled . First call to Dr Michel 4:[address] Michel 5:51 No answer left vm for provider to return call will give a minute and try to call out again . Sunitha Morgan [facility] 2024-04-03 09:29:38 OSMAN 02/04/2024 NOV 05/05/2024 MOUNJARO 15 mg/0.5 mL subcutaneous injection Continue with Mounjaro to 12.5 mg weekly Erika Rivera MA [facility] 2024-03-26 15:08:03 Identified patient by name and in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 call. BEBE MOONEY RN 09/19/2023 9:12 AM BEBE MOONEY RN 09/19/2023 9:12 AM UCT SAFETY ASSOCIATE Bebe Mooney RN [facility] 2023-09-17 08:44:27 Hematology. Has the patient seen someone before? UCT SAFETY ASSOCIATE [facility] 2023-09-14 15:16:15 The Aspirin is to prevent DVT/PE. Can see specialist if desires. Can send an rx but not sure if Medicaid covers over the counter medication. UCT SAFETY ASSOCIATE [facility] 2023-09-13 14:36:17 Contacted patient to follow up with them regarding their procedure at the [facility] pain procedure suite. The patient reported the following information: 1) Are you currently having any nausea or vomiting? No 2) Do you or have you had any drainage at your injection site? No 3) What was your pain scale prior to your procedure? 6 4) What is your pain scale now? 4 5) Have you had any difficulty urinating? No 6) Do you now or since your procedure have you had any fever? No 7) Is there anything concerning that you would like to share with your provider? No 8) Were you satisfied with your care and experience in the [facility] Pain Procedure Suite? Yes FERNANDA RAMOS RN 09/13/2023 2:36 PM UCT SAFETY ASSOCIATE Fernanda Ramos RN [facility] 2023-09-12 15:26:52 Elapsed Sedation Time: 30 min. IA Cano RN [facility] 2023-09-10 16:15:00 Images from the original note were not included. Venipuncture collection performed by clean technique on the right anticubitus. Total of 1 attempts were made. Slight pressure and a bandage/dressing were applied to the site(s). The patient experienced no complications. The following specimens were processed according to instructions and sent to [facility] laboratories per lab order on 09/10/2023 : LT BLUE 3 SST 1 RED LAV PPT DK GREEN (LiHep) DK GREEN (SodH) BOWMAN DK BLUE (K2) DK BLUE (S) ACD Blood Culture NIPT/NTD [facility] 2023-09-10 16:15:00 Addended by: LOYDA FRIEDMAN on: 09/11/2023 05:41 AM Modules accepted: Orders IA Friedman [facility] 2023-09-10 16:15:00 Addended by: IRIS MEDRANO on: 09/11/2023 07:51 AM Modules accepted: Orders UCT SAFETY ASSOCIATE Iris Medrano [facility] 2023-09-10 09:53:52 Left a detailed message with the [...] and leave valuables at home. Address is [address] [place] [address] in [place]. If taking insulin patient is to take one half of normal evening dose day prior to procedure. Pt to follow physician instruction regarding blood thinners and NSAIDS. Covid/travel exposure and vaccination recommendations addressed with patient. Arrival time of 1330 given. IA Escalante RN [facility] 2023-08-24 11:16:29 Medication refilled per protocol. IA Wooten LVN [facility] 2023-08-08 16:18:59 Images from the original note were not included. Requested Renewals Name from pharmacy: Promethazine HCl 12.5 MG Oral Tablet Will file in chart as: PROMETHAZINE 12.5 mg tablet Sig: TAKE 2 TABLETS BY MOUTH EVERY 6 HOURS NEEDED FOR NAUSEA AND VOMITING Disp: 30 tablet Refills: 0 Start: 08/08/2023 Class: eRX For: Chronic nausea Last ordered: 1 month ago (06/26/2023) by Taylor Cortez MD Last refill: 06/26/2023 Rx #: [id number] Anti-nausea (Other) Rufadf1908/08/2023 03:15 PM Protocol Details This refill cannot be delegated Manual Review: Women's Health only allowed to refill requests Valid encounter within last 12 months To be filled at: [facility] [address] [place] [address] Recent Visits Date Type Provider Dept 06/06/23 Office Visit Taylor Cortez MD [facility] 03/06/23 Office Visit Taylor Cortez MD [facility] 01/19/23 Office Visit Taylor Cortez MD [facility] 11/29/22 Office Visit Taylor Cortez MD [facility] 10/18/22 Office Visit Holly Fregoso PA [facility] 09/21/22 Office Visit Holly Fregoso PA [facility] Showing recent visits within past 540 days with a meds authorizing provider and meeting all other requirements Future Appointments No visits were found meeting these conditions. Showing future appointments within next 150 days with a meds authorizing provider and meeting all other requirements IA Morgan LVN [facility] 2023-04-13 13:19:12 Addendum created 04/13/23 1319 by Jayjay Contreras CRNA Intraprocedure Meds edited NACR-NURSE FIRE LOOKOUT,CERTIFIED REGISTERED NURSE FIRE LOOKOUT [facility] 2023-04-09 09:44:28 Patient: Kelsey Luke Procedure Summary Date: 04/09/23 Room / Location: [facility] GI PROCEDURE 4 / [facility] Anesthesia Start: 853 Anesthesia Stop: 915 Procedure: ESOPHAGOGASTRODUODENOSCOPY (Mouth) Diagnosis: Gastroesophageal reflux disease, unspecified whether esophagitis present Dysphagia, pharyngoesophageal phase Nausea (Gastroesophageal reflux disease, unspecified whether esophagitis present [K21.9]Dysphagia, pharyngoesophageal phase [R13.14]Nausea [R11.0]) Surgeons: Norbert Gay MD Responsible Provider: Tacos Roman MD Anesthesia Type: General, TIVA ASA Status: 3 Anesthesia Type: General, TIVA Last vitals BP 117/82 (04/09/23939) Temp 36.2 ?C (97.1 ?F) (04/09/23923) Pulse 74 (04/09/23939) Resp 13 (04/09/23939) SpO2 97 % (04/09/23939) There were no known notable events for this encounter. Anesthesia Post Evaluation Patient location during evaluation: PACU Patient participation: complete - patient participated Level of consciousness: awake and alert Pain score: 0 Pain management: satisfactory to patient Airway patency: patent Cardiovascular status: acceptable and blood pressure returned to baseline Respiratory status: acceptable Hydration status: acceptable AN-ANESTHESIOLOGY ANESTHESIOLOGIST [facility] 2023-04-09 08:59:10 Images from the original note were not included. Requested Renewals Name from pharmacy: Promethazine HCl 12.5 MG Oral Tablet Will file in chart as: PROMETHAZINE 12.5 mg tablet Sig: TAKE 2 TABLETS BY MOUTH EVERY 6 HOURS NEEDED FOR NAUSEA AND VOMITING Disp: 30 tablet Refills: 0 Start: 04/07/2023 Class: eRX Non-formulary For: Chronic nausea Last ordered: 1 month ago (03/06/2023) by Taylor Cortez MD Last refill: 03/06/2023 Rx #: [id number] Anti-nausea (Other) Failed 04/09/2023 08:16 AM Protocol Details This refill cannot be delegated Manual Review: Women's Health only allowed to refill requests Valid encounter within last 12 months To be filled at: [facility] [address] [place] [address] Recent Visits Date Type Provider Dept 03/06/23 Office Visit Taylor Cortez MD [facility] 01/19/23 Office Visit Taylor Cortez MD [facility] 11/29/22 Office Visit Taylor Cortez MD [facility] 10/18/22 Office Visit Holly Fregoso PA [facility] 09/21/22 Office Visit Holly Fregoso PA [facility] 01/16/22 Office Visit Radha Trinidad PA [facility] Showing recent visits within past 540 days with a meds authorizing provider and meeting all other requirements Future Appointments Date Type Provider Dept 06/06/23 Appointment Taylor Cortez MD [facility] Showing future appointments within next 150 days with a meds authorizing provider and meeting all other requirements Irene Morgan LVN [facility] 2023-04-06 10:49:23 Attempted to call patient for appointment reminder/preoperative call. Voicemail left with phone number for patient to call back Emanuel Gandhi RN [facility] 2023-04-05 16:20:09 Placed Psychiatry referral per pt request [facility] 2023-04-03 10:34:22 Name/ MRN / Age / Gender: Kelsey Hernandez Luke, [id number] 38 year old female BMI: Estimated body mass index is 35.41 kg/m? as calculated from the following: Height as of 03/29/23: 1.626 m (5' 4"). Weight as of 03/29/23: 93.6 kg (206 lb 4.8 oz). Allergies: Buspirone and Latex Last Vitals: BP Readings from Last 1 Encounters: 03/29/23 115/78 Pulse Readings from Last 1 Encounters: 03/29/23 85 SpO2 Readings from Last 1 Encounters: 03/29/23 99% Date of Surgery: 04/09/2023 Surgeon: Norbert Gay MD Procedure: ESOPHAGOGASTRODUODENOSCOPY (Mouth) OR Location: [facility] Anesthesia Preop Eval (physical exam) Copied forward and updated from: 11/14/2021 Anesthesia Preop: Chart Review, Phone Preop and Zcme-rs-Rhfk APA questionnaire answers incorporated [facility] Communication: Ozempic, jardiance. Spoke with pt. Her last dose of ozempic was this morning, 04/03/2023. And she understands to hold her jardiance for 3 days prior to the procedure. Yvonne Mehta RN 04/03/2023 11:00 AM NPO Status Verified Anesthesia History Anesthesia History Negative Anesthesia History Negative per Chart Review (-) Hx of anesthetic complications (-) Hx of PONV (-) Hx of malignant hyperthermia (-) Pt reports no hx of difficult airway Previous Anesthetics/Airways Additional Comments: 11/14/2021 easy mask, ETT 7.0 at 22 cm, cuffed, DL, Mac 3, [id number] 1 approach 07/29/2021: MOD sedation for injections 10/18/2020: MAC Patient reports anxiety associated with chest [...] tightness, she should go to the nearest ED 05/28/2020: TIVA for GI Cardiovascular Comments: 11/26/2020: Cardiology OV for atypical chest pain, underwent stress echocardiography which did not show evidence of myocardial ischemia, no F/U cardiac workup needed 03/29/2021 EKG Suspect arm lead reversal, interpretation assumes no reversal Sinus tachycardia, HR 108 Right axis deviation Nonspecific T wave abnormality Abnormal ECG 09/17/2020 MARIA DE JESUS Baseline Echo Normal left ventricular systolic and diastolic function. The left ventricular diastolic function appears normal. Normal left ventricle structure and size. Ejection Fraction = 60-65%. There is normal left ventricular wall thickness. The left atrial size is normal. Right atrial size is normal. Grossly normal valves. Estimated RA pressure is 0-5 mmHg Interpretation Summary The study was technically adequate. Normal LV systolic function at baseline. Normal resting wall motion and no stress-induced wall motion abnormality. Adequate inotropic response. Adequate chronotropic response. This was a negative stress echocardiogram for inducible ischemic wall motion abnormality METS: 7-9 METS Comments: Squatting, lifting, walking, no CP or SOB (-) Chest pain with 1-2 flights of stairs (-) Patient reports no hx of cardiac problems (-) Hypertension (+) Dyslipidemia ( statin ) (+) Hx of cardiac stress test (-) Hx of cardiac cath (-) Angina/Chest Pain Within Last Year (-) Patient does not report prior NM (-) CAD (-) Valvular problems/murmurs (-) Dysrhythmias (-) Pt reports prior cardiac surgery (-) No cardiovascular devices present (-) CHF Pulmonary Comments: Chronic cough since Covid 07/20/2021: DX bronchitis/sinusitis at . [place] steroids and abx 06/25/2021 10:12 new onset URI SARS-CoV-2 NAAT: Positive (A) 03/26/2021 16:44 SARS-CoV-2 NAAT: Positive (A) +Covid PNA, not hospitalized, TX steroids, abx, and inhaler (+) Patient reports snoring or stopping breathing during sleep (+) Sleep apnea, CPAP compliant (-) Home O2 (-) COPD (-) Asthma (+) Tobacco use Tobacco Quit Date: 12/31/2016 (+) Vaping use (+) Allergic rhinitis (+) Chronic sinusitis (-) COVID-19 within the past 6 weeks (-) Influenza within the past 6 weeks (-) Pneumonia within the last 6 weeks (-) Recent bronchitis or URI Neuro/Musculoskeletal Comments: (+) Sciatica (+) vertigo (+) carpal tunnel syndrome H/O multiple SI joint injections (-) CVA (+) Headaches (-) Seizures (+) Anxiety (-) Neuromuscular Disease (+) Chronic pain: ( back pain) (+) Obesity ( bmi 34.41) GI/Hepatic Comments: CC: ?Gastroesophageal reflux disease ? ?Dysphagia, pharyngoesophageal phase ? ?Nausea H/O: nausea, prn promethazine (-) GERD (-) Liver disease Hematology Comments: 01/09/23 10:40 HGB: 13.5 HCT: 40.9 PLT x10^3: 235 (+) Anemia (History of anemia) (-) PE/DVT (-) Prior blood transfusion (+) On anti-coagulant therapy Renal Negative Renal ROS Renal ROS Negative per Chart Review Comments: 01/09/23 10:40 NA: 139 K: 5.0 CL: 102 CO2 TOTAL: 26 AGAP: 11 BUN: 21 GLUCOSE: 151 (H) CREATININE: 0.50 eGFR: 140.4 (-) Renal disease (-) Dialysis Skin Negative Skin ROS Skin ROS Negative per Chart Review Endo/Other (+) Diabetes Mellitus, Type 2, Rx Insulin, diet controlled and on oral meds Hemoglobin A1C: 8.4 on 08/03/2022 Average Blood Glucose Range: 126 average. 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 Hold on DOS. Phentermine: Alert [facility] anesthesiologist SGLT2 Inhibitors: "gliflozins" to be held for 3 days prior to elective surgeries MAC Cases: Continue taking ANTONIO inhibitors and ARBs ASA Classification ASA: 3 Current Medications: No current facility-administered medications [...] by mouth at bedtime. 90 tablet 3 [employer]cellaneous Medical [employer] Kit Use as directed 1 [...] mouth in the morning. 90 tablet 1 Odxopygira-Dgiivkjmznapf-Insf 50-300-40 mg per capsule TAKE 1 CAPSULE BY MOUTH EVERY 6 HOURS NEEDED fluticasone propionate 50 mcg/actuation nasal spray Use 1 [place] in each nostril in the morning. 16 [...] Laterality Date COLONOSCOPY N/A 05/28/2020 Surgeon: Norbert Gay MD; Location: [facility] COLONOSCOPY 05/28/2020 COLPOSCOPY HEMORRHOIDECTOMY N/A 11/14/2021 Surgeon: Azalia Michel MD; [facility] 10/18/2020 Surgeon: Curtis Morley MD; Location: [facility] Anesthesia Physical Exam General no apparent distress and alert and oriented x 3 Neuro/Psych neurological Nonfocal Dental no notable dental hx Abdominal GI exam normal (+) abdomen soft and benign Airway Mallampati score:III TM distance:> 5 cm Neck ROM: full Mouth opening:normal Extremity Normal extremity Pulmonary pulmonary exam normal and bilateral clear to auscultation Other Cardiovascular cardiovascular exam normalRhythm:Regular Rate: Normal Anesthesia Plan ASA Status: 3 Plan discussed during pre-op evaluation: General and TIVA Anesthetic plan on DOS: General and TIVA Plan to include: IV induction and face mask Anesthesia plan discussed with: patient or underwriting sales representative Post-Operative Analgesia: routine analgesia & antiemetics Recovery Plan: PACU Additional comments: [facility] 2023-04-02 15:01:53 Requested Prescriptions Pending Prescriptions Disp Refills semaglutide (OZEMPIC) 2 mg/dose (8 mg/3 mL) PnIj [Pharmacy Med Name: OZEMPIC 2mg/dose Pen Injector] 3 mL 2 Sig: INJECT TWO (2) MG UNDER THE SKIN ONCE WEEKLY. Yasmeen Finch MA [facility] 2023-03-30 16:41:53 LOVN sent to [facility] via right fax Chari Mckeon MA [facility] 2023-03-19 14:58:36 Prescription & Letter of Medical Necessity has been completed & signed by DAISY Vila as well as scanned to patient's chart. Clinical notes, patient demographics, & LMN have all been faxed to [facility] . Bia Zelaya MA 03/19/2023 2:58 PM Bia Zelaya MA [facility] 2023-03-19 14:52:39 Fax received from [facility] stating they did not receive the LMN sent by DAISY Vila on 03/13/2023. LMN filled out and placed in DAISY Vila's folder for review and signature. Bia Zelaya MA 03/19/2023 2:54 PM [facility] 2023-03-14 08:24:53 Prior Authorization for Celecoxib 100MG capsules has been APPROVED. Dates: 03/14/2023 - 03/13/2024 PA#: [id number] Bia Zelaya MA 03/14/2023 8:24 AM Bia Zelaya MA [facility] 2023-03-14 08:07:24 Images from the original note were not included. Prior Authorization required for Celecoxib 100MG capsules. [email or web address] PRICE: [email or web address] [facility] [address] [place] [address] Bia Zelaya MA 03/14/2023 8:12 AM Bia Zelaya MA [facility] 2023-03-13 14:30:00 Addended by: BETH PARRY RN on: 03/15/2023 05:00 PM Modules accepted: Orders [facility] 2023-03-08 16:12:58 Recent Visits Date Type Provider Dept 03/06/23 Office Visit Taylor Cortez MD [facility] 01/19/23 Office Visit Taylor Cortez MD [facility] 11/29/22 Office Visit Taylor Cortez MD [facility] 10/18/22 Office Visit Holly Fregoso PA [facility] 09/21/22 Office Visit Holly Fregoso PA [facility] 01/16/22 [facility] recent visits within past 540 days with a meds authorizing provider and meeting all other requirements Future Appointments Date Type Provider Dept 06/06/23 Appointment Taylor Cortez MD [facility] Showing future appointments within next 150 days with a meds authorizing provider and meeting all other requirements Last refill was NuvaRing 0.12-0.015 mg/24 hr vaginal insert 1 Each 0 02/05/2023 -- Sig: Insert 1 Each into vagina once every month. Insert vaginally and leave in place for 3 consecutive weeks, then remove for 1 week. T Nidia Barnhart MA [facility] 2023-03-06 15:35:12 NuvaRing 0.12-0.015 mg/24 hr vaginal insert Insert 1 Each into vagina once every month. Insert vaginally and leave in place for 3 consecutive weeks, then remove for 1 week Dispense: 1 Each Refills: 0 ordered [facility] 2023-02-26 09:04:23 Requested Prescriptions Pending Prescriptions Disp Refills OZEMPIC 2 mg/dose (8 mg/3 mL) PnIj [Pharmacy Med Name: Ozempic (2 MG/DOSE) 8 MG/3ML Subcutaneous Solution Pen-injector] 3 mL 0 Sig: INJECT 2 MG UNDER THE SKIN WEEKLY Off-Protocol Failed - 02/25/2023 2:53 PM Failed - Medication not assigned to a protocol, forward to provider. Passed - Valid encounter within last 12 months Recent Visits Date Type Provider Dept 04/18/22 Telemedicine Visit Radha Trinidad PA [facility] Showing recent visits within past 365 days and meeting all other requirements Future Appointments No visits were found meeting these conditions. Showing future appointments within next 365 days and meeting all other requirements Rerouting to correct pool/clinician Sabrina Bee MA [facility]
[2024-07-04] MEDS ORDERED: AZITHROMYCIN 250 MG TAB ONE (14:45)
[2024-07-04 15:00] LABS: SARS-CoV-2 Antigen CONTROL BLUE LINE VIS/BG OK; SARS-CoV-2 Antigen Rapid Res Negative (Negative)
--- NOTE | 2024-07-04 15:13 | RAD REPORT ---
Procedure: Chest Pa And Lat (2 Views) HISTORY: Congestion COMPARISON: 2022 FINDINGS: The lungs appear clear of acute infiltrate. No significant pleural effusion noted. The heart is normal size. IMPRESSION: No acute abnormality is displayed.
[2024-07-04] MEDS ORDERED: CEFTRIAXONE 1000 MG/VIAL ONE (15:41)
[2024-07-04] MEDS ORDERED: WATER FOR INJ,STERILE 10 ML ONE (15:41)
--- NOTE | 2024-07-04 15:58 | ER ---
Nurse's Notes [facility] Name: Kelsey Harrell Age: 39 yrs Sex: Female : 1985 Arrival Date: 07/04/2024 Time: 13:43 Bed 12 Private MD: Diagnosis: Acute upper respiratory infection, unspecified;Acute serous otitis media, unspecified ear Presentation: 07/04 14:03 Chief complaint: Patient states: Patient presents in the ED c/o cough, congestion, os nausea, loss of smell \T\ taste, and generalized weakness for the past 2 days. Coronavirus screen: Vaccine status: Patient reports being unvaccinated. Client denies travel out of the [place] in the last 14 days. Client presents with at least one sign or symptom that may indicate coronavirus-19. Standard/surgical mask placed on the client. Ebola Screen: No symptoms or risks identified at this time. Initial Sepsis Screen: Does the patient meet any 2 criteria? No. Patient's initial sepsis screen is negative. Does the patient have a suspected source of infection? No. Patient's initial sepsis screen is negative. Risk Assessment: Do you want to hurt yourself or someone else? Patient reports no desire to harm self or others. Onset of symptoms was July 01, 2024. 14:03 Method Of Arrival: Ambulatory os 14:03 Acuity: LENA 4 os Triage Assessment: 14:07 General: Appears uncomfortable, Behavior is calm, cooperative, appropriate for age. os Pain: Complains of pain in right supraclavicular area, right clavicle, left supraclavicular area and left clavicle Pain currently is 6 out of 10 on a pain scale. Cardiovascular: No deficits noted. Respiratory: Reports shortness of breath cough that is Onset: The symptoms/episode began/occurred the patient has moderate shortness of breath. Historical: - Allergies: 14:06 Latex; os - Home Meds: 14:06 gabapentin 300 mg Oral cap 1 cap 3 times per day [Active]; metformin 1 Oral tab 2 times os per day [Active]; - PMHx: 14:06 Chronic pain (neuropathy); diabetes mellitus; neuropathy; Skeletal bone disorder os (neuropathy); - Immunization history:: Adult Immunizations up to date. - Infectious Disease History:: Denies. - Social history:: Smoking status: Patient/guardian denies using alcohol, street drugs, IV drugs, tobacco products. Screenin:27 Abuse screen: Denies threats or abuse. Denies injuries from another. Nutritional ss screening: No deficits noted. Tuberculosis screening: Never had TB. Assessment: 14:27 General: Appears uncomfortable, ill, Behavior is calm, cooperative, Reports fever for ss 1-2 days, feeling ill for 1-2 days, fatigue for 1-2 days. Pain: Complains of pain in bilateral ears. Neuro: Level of Consciousness is awake, alert, obeys commands, Oriented to person, place, time, situation. Respiratory: Airway is patent Respiratory effort is even, unlabored, Respiratory pattern is regular, symmetrical. GI: No signs and/or symptoms were reported involving the gastrointestinal system. Derm: Skin is intact, is healthy with good turgor, Skin is pink, warm \T\ dry. normal. 16:04 Reassessment: Patient appears in no apparent distress at this time. Patient is alert, ss oriented x 3, equal unlabored respirations, skin warm/dry/pink. Respiratory: Respiratory effort is even, unlabored. Vital Signs: 14:03 BP 94 / 79; Pulse 92; Resp 19; Temp 98.4; Pulse Ox 98% ; Weight 71.21 kg; os ED Course: 13:54 Patient arrived in ED. mg5 13:56 Tony Morgan MD is Attending Physician. [facility] 14:06 Triage completed. os 14:27 Davina Wells, RN is Primary Nurse. ss 14:27 Patient has correct armband on for positive identification. Bed in low position. ss 15:08 Chest Pa And Lat (2 Views) XRAY In Process Unspecified. EDMS 16:04 No provider procedures requiring assistance completed. Patient did not have IV access ss during this emergency room visit. Administered Medications: 14:49 Drug: AZITHromycin PO 500 mg PO once Route: PO; ss 15:48 Follow up: Response: No adverse reaction 15:49 Drug: Rocephin (cefTRIAXone) IM 1 grams IM once Route: IM; Site: left gluteus; ss 16:04 Follow up: Response: No adverse reaction ss Medication: 14:27 VIS not applicable for this client. ss Outcome: 15:57 Discharge ordered by . [facility] 16:04 Discharged to home ambulatory, with family, ss 16:04 Condition: good 16:04 Discharge instructions given to patient, family, Instructed on discharge instructions, follow up and referral plans. medication usage, Demonstrated understanding of instructions, follow-up care, medications, Prescriptions given X 4, 16:05 Patient left the ED. Signatures: Dispatcher [employer] Tony Gunn MD MD cha Blanchard, Shelby, RN RN Yoana Darling RN RN Ellie Michaels mg5 Corrections: (The following items were deleted from the chart) 14: No provider procedures requiring assistance completed. [facility] 14:27 Patient did not have IV access during this emergency room visit. [facility]
--- NOTE | 2024-07-04 15:58 | EDPHYS ---
Physician Documentation [facility] Name: Kelsey Harrell Age: 39 yrs Sex: Female : 1985 Arrival Date: 07/04/2024 Time: 13:43 Bed 12 Private MD: ED Physician Tony Morgan HPI: 07/04 15:47 This 39 yrs old Female presents to ER via Ambulatory with complaints of COVID wally EXPOSED, Shortness Of Breath, Sore Throat, Ear Pain. 15:47 The patient has shortness of breath with light activity. Onset: The symptoms/episode wally began/occurred 3 day(s) ago. Duration: The symptoms are continuous, and are steadily getting worse. The patient's shortness of breath is aggravated by coughing. Associated signs and symptoms: Pertinent positives: non-productive cough, dizziness. Severity of symptoms: At their worst the symptoms were moderate in the emergency department the symptoms are unchanged. The patient has experienced similar episodes in the past, a few times. Historical: - Allergies: 14:06 Latex; os - Home Meds: 14:06 gabapentin 300 mg Oral cap 1 cap 3 times per day [Active]; metformin 1 Oral tab 2 times os per day [Active]; - PMHx: 14:06 Chronic pain (neuropathy); diabetes mellitus; neuropathy; Skeletal bone disorder os (neuropathy); - Immunization history:: Adult Immunizations up to date. - Infectious Disease History:: Denies. - Social history:: Smoking status: Patient/guardian denies using alcohol, street drugs, IV drugs, tobacco products. ROS: 15:49 Constitutional: Negative for fever, chills, and weight loss, Eyes: Negative for injury, wally pain, redness, and discharge, Neck: Negative for injury, pain, and swelling, Cardiovascular: Negative for chest pain, palpitations, and edema, Abdomen/GI: Negative for abdominal pain, nausea, vomiting, diarrhea, and constipation, Back: Negative for injury and pain, : Negative for injury, bleeding, discharge, and swelling, MS/Extremity: Negative for injury and deformity, Skin: Negative for injury, rash, and discoloration, Neuro: Negative for headache, weakness, numbness, tingling, and seizure, Psych: Negative for depression, anxiety, suicide ideation, homicidal ideation, and hallucinations, Allergy/Immunology: Negative for hives, rash, and allergies, Endocrine: Negative for neck swelling, polydipsia, polyuria, polyphagia, and marked weight changes, Hematologic/Lymphatic: Negative for swollen nodes, abnormal bleeding, and unusual bruising, 15:49 ENT: Positive for ear pain, sore throat, 15:49 Respiratory: Positive for cough, "sounds productive", Exam: 15:49 Constitutional: This is a well developed, well nourished patient who is awake, alert, wally and in no acute distress. Head/Face: Normocephalic, atraumatic. Eyes: Pupils equal round and reactive to light, extra-ocular motions intact. Lids and lashes normal. Conjunctiva and sclera are non-icteric and not injected. Cornea within normal limits. Periorbital areas with no swelling, redness, or edema. Neck: Trachea midline, no thyromegaly or masses palpated, and no cervical lymphadenopathy. Supple, full range of motion without nuchal rigidity, or vertebral point tenderness. No Meningismus. Chest/axilla: Normal chest wall appearance and motion. Nontender with no deformity. No lesions are appreciated. Cardiovascular: Regular rate and rhythm with a normal S1 and S2. No gallops, murmurs, or rubs. Normal PMI, no JVD. No pulse deficits. Abdomen/GI: Soft, non-tender, with normal bowel sounds. No distension or tympany. No guarding or rebound. No evidence of tenderness throughout. Back: No spinal tenderness. No costovertebral tenderness. Full range of motion. Pelvic Exam: Normal external genitalia. Speculum exam with closed cervical os, no discharge or bleeding noted. Bimanual exam with normal adnexa, no adnexal or cervical motion tenderness. Normal uterus. Female : Normal external genitalia. 15:49 ENT: Posterior pharynx: Airway: normal, no evidence of obstruction, Tonsils: are normal in appearance, 15:49 Respiratory: the patient does not display signs of respiratory distress, Respirations: normal, no acute changes, that is mild is noted, Breath sounds: bronchial sounds, that are mild, Vital Signs: 14:03 BP 94 / 79; Pulse 92; Resp 19; Temp 98.4; Pulse Ox 98% ; Weight 71.21 kg; os MDM: 13:56 Medical Screening Exam initiated [facility] 14:18 Medical Screening Exam initiated wally 15:52 Differential diagnosis: asthma, Bronchitis Chronic Obstructive Pulmonary Disease wally tracheal injury, bronchitis, flu, URI, reactive airway disease. Antibiotic administration: The patient is discharged and will get outpatient antibiotics, Zithromax. Immunization status:. Data reviewed: vital signs, nurses notes, lab test result(s), Flu: positive. Consideration of Admission/Observation Escalation of care including admission/observation considered. I considered the following discharge prescriptions or medication management in the emergency department Medications were administered in the Emergency Department. See MAR. Independent interpretation of the following test(s) in the Emergency Department X-Ray: My interpretation is CXR NA. Test considered but Not performed: Labs: NO CBC, NO COMP. Care significantly affected by the following chronic conditions: Diabetes, CHRONIC PAIN, BONE DISORDERS. 07/04 13:59 Order name: SARS RAPID; Complete Time: 15:08 [facility] 07/04 13:59 Order name: Flu; Complete Time: 15:08 [facility] 07/04 13:59 Order name: Chest Pa And Lat (2 Views) XRAY; Complete Time: 15:43 [facility] Administered Medications: 14:49 Drug: AZITHromycin PO 500 mg PO once Route: PO; ss 15:48 Follow up: Response: No adverse reaction ss 15:49 Drug: Rocephin (cefTRIAXone) IM 1 grams IM once Route: IM; Site: left gluteus; ss 16:04 Follow up: Response: No adverse reaction ss Disposition Summary: 07/04/24 15:57 Discharge Ordered Notes: Location: Home [facility] Problem: new [facility] Symptoms: have improved wally Condition: Stable wally Diagnosis - Acute upper respiratory infection, unspecified wally - Acute serous otitis media, unspecified ear wally Followup: wally - With: Private Physician - When: 2 - 3 days - Reason: Recheck today's complaints, Continuance of care, Re-evaluation by your physician Discharge Instructions: - Discharge Summary Sheet wally - Upper Respiratory Infection, Adult wally - Cool Mist Vaporizer wally - Otitis Media, Adult, [id number] wally - Upper Respiratory Infection, Adult, [id number] wally - Cough, Adult wally Forms: - Medication Reconciliation Form wally - Antibiotic Education wally - Prescription Opioid Use wally - Patient Portal Instructions [facility] - Leadership Thank You Letter [facility] Prescriptions: - Jami-D 12 Hour 60-120 mg Oral Tablet Sustained Release 12 hr - take 1 tablet ORAL route every 12 hours As needed; 20 tablet; Refills: 0, wally Product Selection Permitted - Zithromax Z-David 250 mg Oral Tablet - take 1 tablet ORAL route as directed for 5 days Day 1 - take two (2) tablets wally one time. Day 2, 3, 4 , 5 take one (1) tablet once daily.; 6 tablet; Refills: 0, Product Selection Permitted - Medrol (David) 4 mg Oral Tablets, Dose Pack - take 1 tablet ORAL route as directed - follow package instructions; 1 packet; wally Refills: 0, Product Selection Permitted - benzonatate 200 mg Oral capsule - take 1 capsule ORAL route 3 times per day as needed; 30 capsule; Refills: 0, wally Product Selection Permitted Signatures: Dispatcher [employer] Tony Gunn MD MD cha Blanchard, Shelby, BUCKY RN ss Yoana Darling RN RN os Corrections: (The following items were deleted from the chart) 14:00 14:00 Chest Pa And Lat (2 Views)+RAD.RAD.BRZ ordered. EDMS EDMS 14:00 14:00 SARS-COV-2 Antigen Rapid+I.LAB.BRZ ordered. EDMS EDMS 14:00 14:00 Influenza Screen (A \\T\\ B)+BA.LAB.BRZ ordered. EDMS EDMS
[2024-07-04 17:11] VITALS: BP 94/79; TEMP 98.4; O2SAT 98
== END 2024-07-04 16:05 | disposition home or self-care (01) ==
LOC: ER 13:43
DX: J06.9 Acute upper respiratory infection, unspecified (principal); H65.00 Acute serous otitis media, unspecified ear; Z11.52 Encounter for screening for COVID-19
CPT/HCPCS: 36415; 87804 ×2; 71046; 96372; 99284; 87811; J0696

== ENCOUNTER 2024-08-11 18:16 | Emergency (ER) | payer OTHER ==
--- OUTSIDE RECORDS SUMMARY | 2024-08-11 18:34 | XMS REPORT | Continuity of Care Document ---
Author Name Unknown Address [address] [facility] [address] [place] [address] [facility] Address [address] [facility] [address] [place] [address] Care Team Providers Care Classification Counselor Name Role Phone Adelaida Ramos MD Primary Care Physician [phone] AZALIA MICHEL Attending Clinician Unavailable AZALIA MICHEL Attending Clinician Unavailable CURTIS MORLEY Attending Clinician UnavailNORBERT Herrera Attending Clinician Unavailable NORBERT DIAZ Attending Clinician Unavailable MARIE GARZON Attending Clinician Unavailable ROSIBEL HUERTA Attending Clinician Unavailable ABIEL ALFARO Attending Clinician Unavail able GERALD DEL VALLE Attending Clinician Priscilla ADELAIDA Riley Attending Clinician Unavailable ADELAIDA RAMOS Attending Clinician Unavailable CARMEN FIGUEROA Attending Clinician CARMEN Lee Attending Clinician Carmen Lee MD Attending Clinician + [phone] Gerald Del Valle DNP Attending Clinician BETH PHAM Attending Clinician Unavailable Adelaida Ramos MD Attending Clinician [phone] Holly Herrera Attending Clinician +[phone] Beth Rodriguez Attending Clinician Azalia Michel MD Attending Clinician Marie Garzon MD Attending Clinician [phone] Curtis Morley MD Attending Clinician [phone] Sophia Ramirez PA-C Attending Clinician +[phone] SOPHIA RAMIREZ Attending Clinician Unavailable Skyler Ferrari MD Attending Clinician [phone] BIA CHAMORRO Attending Clinician Unavailable Bia Mccann Attending Clinician [phone] NurseRaj Attending Clinician Unavailable Doctor Unassigned, Odum Attending Clinician U Taylor Leonard MD Attending Clinician NAINA SEGOVIA Attending Clinician Unavailable Beth Rodriguez Attending Clinician [phone] Taylor Verdin MD Attending Clinician Vanda Morales MD Attending Clinician [phone] Marie Garzon MD Attending Clinician [phone] YAA DRUMMOND Attending Clinician Unavailable YAA DRUMMOND Attending Clinician Unavailable MADELINE SHAY Attending Clinician Unavailable MADELINE SHAY Attending Clinician Unavailable ARGENTINA LOONEY Attending Clinician Unavailable ARGENTINA LOONEY Attending Clinician Unavailable Saumya Mg Attending Clinician UnaTAYLOR Collier Attending Clinician Priscilla zackeryilable Peyman CHONG, Curtis Helms Attending Clinician [phone] Akinsipe WHCNP, Abiel C Attending Clinician + Richa Dominguez MD Attending Clinician Unavailable Lab, Raj eDng Attending Clinician Unavailable RICHA DOMINGUEZ Attending Clinician Unavailable Doctor Unassigned, Odum Attending Clinician U navailable 2, Adc Lab Attending Clinician Unavailable EZ PALACIO Attending Clinician UnavailEZ Saenz Attending Clinician UnavailELDER Del Valle Attending Clinician UnavailNorbert Herrera MD Attending Clinician [phone] Yvonne Mehta RN Attending Clinician UnavailTacos Burgos MD Attending Clinician +[phone] EAMON CARRASCO Attending Clinician Unavailable EAMON CARRASCO Attending Clinician Unavailable Gisella CROWDER, Naina Attending Clinician +[phone] HOLLY FREGOSO Attending Clinician Unavailable Radha Andrade Attending Clinician +[phone] Minh CHONG, Rual Attending Clinician +[phone] DUNCAN RAMOS Attending Clinician UnavailDuncan Red MD Attending Clinician [phone] Sabrina Bee MA Attending Clinician Unavailabl e Vtc-Lab Attending Clinician Unavailable Jacob CHONG, Harjinder White Attending Clinician [phone] HARJINDER JAMES Attending Clinician Unavail able Eloy CHONG, Elder Wyatt Attending Clinician + [phone] MEGHAN MARKHAM Attending Clinician Unavailable Skyler Ferrari MD Attending Clinician +[phone] Holly Herrera Attending Clinician + [phone] Meghan Markham MD Attending Clinician +[phone] SKYLER FRERARI Attending Clinician Unavail able SKYLER FERRARI Attending Clinician Unavail able Tech, Ad[facility] Sleep Lab Attending Clinician UnavailKalli Cordero MD Attending Clinician + [phone] KALLI JEFFERSON Attending Clinician Unavaila KALLI Broderick Attending Clinician Unavailerna Nava RN, Lana Attending Clinician Unavailable CAMILO CORLEY Attending Clinician Judy Corley MD, Camilo Lobo Attending Clinician +[phone] Lab, [facility] [address] Attending Clinician RADHA German Attending Clinician Unavailable Ashley Hernandez Attending Clinician [phone] Catalina Mendez PA-C Attending Clinician +[phone] Kristi CHONG, Byron Ward Attending Clinician + [phone] Only, Adc Test Attending Clinician Unavailable [place] Attending Clinician [phone] Rene Olvera MD Attending Clinician +[phone] SAMINA BOOKER A Attending Clinician Unavailable Jhony HOSPITAL INTERN, Samina A Attending Clinician [phone] Unknown, Attending Attending Clinician Unavailab le Nurse, Gal Adult Urgent Attending Clinician Unav ailable Therapy, Clc Covid Infusion Attending Clinician Unavailable Hai CHONG, Tejinder Jackson Attending Clinician +[phone] TEJINDER DONALD Attending Clinician Unavailable ASHLEY RAINES Attending Clinician Unavailable Alicja HOSPITAL INTERN, Ever Attending Clinician + UNKNOWN, ATTENDING Attending Clinician Unavailab brandon Venegas MD, Barrington Porter Attending Clinician +[phone] CATALINA MENDEZ Attending Clinician Unavail able HEATH JOHNSON Attending Clinician Unavailable Biju CHONG, Brady Moreira Attending Clinician [phone] Rj CHONG, Amando Umanzor Attending Clinician +- [phone] Elena RN, Norma Burch Attending Clinician Unavailab NEW Maya Attending Clinician Unavaila ble Care, Gal Adult Urgent Attending Clinician Unava ilable Harley CHONG, Chan Attending Clinician Unavailable Emeli MCMANUSP, Cait Attending Clinician +[phone] Vineet HOSPITAL INTERN, Monika Vogel Attending Clinician EMILY ARGUETA Attending Clinician Unavaila anne Ortega, [facility] Resident Attending Clinician Unavailab brandon Avila MD, Jenny Mantilla Attending Clinician [phone] Taurus Guadalupe MD Attending Clinician +[phone] TAURUS GUADALUPE Attending Clinician Unavailable Tacos Giron DO Attending Clinician [phone] Only, Pcp Test Attending Clinician Unavailable Emily Fay Attending Clinician + [phone] Aiyana Bojorquez Attending Clinician +[phone] [facility]-Lab Attending Clinician Unavailable Micheline Mixon MD Attending Clinician +[phone] MICHELINE MIXON Attending Clinician Unavailable AIYANA HOLLINGSWORTH Attending Clinician Unavailable Andrea Galeano PTA, Maki A Attending Clinic hoang Unavailable Jorge Luis CHONG, Brady Umanzor Attending Clinician +[phone] Bessie Alexandre RN Attending Clinician Unavailable Fellow, Cardiology Attending Clinician Unavailab Dickson, Octavio Vidal Attending Clinician [phone] OCTAVIO ANDERSON Attending Clinician Unavailable Cody TELLEZ, Rain Attending Clinician UnaBRADY Purvis Attending Clinician Unavailable Lucille Banks LPC Attending Clinician [phone] LUCILLE BANKS Attending Clinician Unavaila anne Ace MD, Selena Attending Clinician [phone] Seb LAWLER, Tony Attending Clinician Unavailab brandon Yee MD, Keri Attending Clinician [phone] Pcp, Patient Does Not Have A Attending Clinician Aric CHONG, Gordy Jane Attending Clinician + [phone] GORDY ELY Attending Clinician Unavaila anne Mejia MD, Odilia Smith Attending Clinician +[phone] ODILIA MEJIA Attending Clinician Unavailab brandon Live MD, Elaina Umanzor Attending Clinician +[phone] CHALINO BROWN Attending Clinician Unavailable Bill Luque Attending Clinician UnavailKami Garrido Attending Clinician Unavailable Radha Wilson Attending Clinician Unavailable Reyes Martinez Attending Clinician Unavailable Genesis Bustamante Attending Clinician Unavailable AZALIA MICHEL Admitting Clinician Unavailable AZALIA MICHEL Admitting Clinician Unavailable CURTIS MORLEY Admitting Clinician Unavaila NORBERT Humphries Admitting Clinician Unavailable Azalia Michel MD Admitting Clinician [phone] Norbert Diaz MD Admitting Clinician +[phone] SKYLER FERRARI Admitting Clinician Unavail able EZ PALACIO Admitting Clinician Unavaila CAMILO Alonzo Admitting Clinician Unazackery Morley MD, Curtis Helms Admitting Clinician + [phone] CHALINO BROWN Admitting Clinician Unavailable Payers Payer Name Policy Type Policy Number Effective Date Expirati on Date Source [facility] [id number] 2024 00:00:00 [facility] [id number] 00:00:00 Problems Condition Name Condition Details Condition Category Status Onset Date Resolution Date Last Treatment Date Treating Clinician Comments Source Anal irritation Anal irritation Disease Active 8-02 00:00: 00 [facility] Fissure in ano Fissure in ano Disease Active 8-02 00:00: 00 [facility] Dermatitis of perianal region Dermatitis of perianal region Disease Active 6-04 00:00: 00 [facility] Obesity (BMI 30-39.9) Obesity (BMI 30-39.9) Disease Active 1-29 00:00: 00 [facility] GENNY (generaliz ed anxiety disorder) GENNY (generaliz ed anxiety disorder) Disease Active 04-05 00:00: 00 [facility] PTSD (post-trau matic stress disorder) PTSD (post-trau matic stress disorder) Disease Active 04-05 00:00: 00 [facility] Persistent depressive disorder Persistent depressive disorder Disease Active 04-05 00:00: 00 [facility] Gastroesop hageal reflux disease, unspecifie d whether esophagiti s present Gastroesop hageal reflux disease, unspecifie d whether esophagiti s present Disease Active 01-02 00:00: 00 Overview: Formattin g of this note might be different from the original. Added automatic ally from request for surgery [id number] [facility] Dysphagia, pharyngoes ophageal phase Dysphagia, pharyngoes ophageal phase Disease Active 01-02 00:00: 00 Overview: Formattin g of this note might be different from the original. 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 Disease Active 01-01 00:00: 00 [facility] Nausea Nausea Disease Active 01-01 00:00: 00 [facility] AKHIL (obstructi ve sleep apnea) AKHIL (obstructi ve sleep apnea) Disease Active 3-12 00:00: 00 [facility] Sleep difficulti es Sleep difficulti es Disease Active 2-09 00:00: 00 [facility] Chronic fatigue Chronic fatigue Disease Active 2- 00:00: 00 [facility] Chronic nausea Chronic nausea Disease Active 2- 00:00: 00 [facility] History of recurrent miscarriag es History of recurrent miscarriag es Disease Active 1- 00:00: 00 [facility] History of recurrent miscarriag es History of recurrent miscarriag es Disease Active 1- 00:00: 00 [facility] Patient desires Patient desires Disease Active 1- 00:00: 00 [facility] Hirsutism Hirsutism Disease Active 2021-08 2- 00:00: 00 [facility] Screen for STD (sexually transmitte d disease) Screen for STD (sexually transmitte d disease) Disease Active 2021-08 2- 00:00: 00 [facility] Vaginal discharge Vaginal discharge Disease Active 2021-08 2-05 00:00: 00 [facility] Missed menses Missed menses Disease Active 2021-08 2- 00:00: 00 [facility] Pain pelvic Pain pelvic Disease Active 2021-08 2-05 00:00: 00 [facility] History of PCOS History of PCOS Disease Active 2021-08 2-05 00:00: 00 [facility] Irregular menstrual cycle Irregular menstrual cycle Disease Active 2021-08 2-05 00:00: 00 [facility] External hemorrhoid s External hemorrhoid s Disease Active 5-17 00:00: 00 [facility] Grade II internal hemorrhoid s Grade II internal hemorrhoid s Disease Active 5-14 00:00: 00 Overview: Formattin g of this note might be different from the original. Added automatic ally from request for surgery [id number] [facility] Sacroiliit is Sacroiliit is Disease Active 09-23 00:00: 00 Overview: Formattin g of this note might be different from the original. Added automatic ally from request for surgery [id number] [facility] Loose stools Loose stools Disease Active 2019-08 00:00: 00 Overview: Formattin g of this note might be different from the original. Added automatic ally from request for surgery [id number] [facility] Blood in stool Blood in stool Disease Active 2019-08 00:00: 00 Overview: Formattin g of this note might be different from the original. Added automatic ally from request for surgery [id number] [facility] Latex allergy Latex allergy Disease Active 04-17 00:00: 00 [facility] Latex allergy Latex allergy Disease Active 04-17 00:00: 00 [facility] Sciatic nerve disease, right Sciatic nerve disease, right Disease Active 02-10 00:00: 00 [facility] Sciatic nerve disease, right Sciatic nerve disease, right Disease Active 02-10 00:00: 00 [facility] Modified White class B pregestati onal diabetes mellitus Modified White class B pregestati onal diabetes mellitus Disease Active 01-09 00:00: 00 [facility] BMI 35.0-35.9, adult BMI 35.0-35.9, adult Disease Active 12-31 00:00: 00 [facility] Chronic bilateral low back pain without sciatica Chronic bilateral low back pain without sciatica Disease Active 04-02 00:00: 00 [facility] Bronchitis Bronchitis Disease Active [place]: Formattin g of this note might be different from the original. COPD v. asthma [facility] Anxiety Anxiety Disease Active [facility] Fatty liver Fatty liver Disease Active [facility] Pre-eclamp teodora affecting , antepartum Pre-eclamp teodora affecting , antepartum Disease Resolve d 04-24 00:00: 00 2022-06-20 00:00:00 2022-06-20 10:50:20 [facility] 37 weeks gestation of 37 weeks gestation of Disease Resolve d 04-26 00:00: 00 2017-05-28 00:00:00 2017-05-28 17:08:03 [facility] Two vessel umbilical cord in leon , antepartum Two vessel umbilical cord in leon , antepartum Disease Resolve d 04-26 00:00: 00 2017-05-28 00:00:00 2017-05-28 17:08:04 [facility] Two vessel umbilical cord in leon , antepartum Two vessel umbilical cord in leon , antepartum Disease Resolve d 04-26 00:00: 00 2017-05-28 00:00:00 2017-05-28 17:08:04 [facility] Positive GBS test Positive GBS test Disease Resolve d 905 00:00: 00 2017-05-28 00:00:00 2017-05-28 17:07:29 [facility] High-risk , third trimester High-risk , third trimester Disease Resolve d 5-31 00:00: 00 2017-05-28 00:00:00 2017-05-28 17:07:40 [facility] Pre-eclamp teodora Pre-eclamp teodora Disease Resolve d 04-23 00:00: 00 2017-04-26 00:00:00 2017-04-26 08:16:58 [facility] 36 weeks gestation of 36 weeks gestation of Disease Resolve d 04-21 00:00: 00 2017-04-26 00:00:00 2017-04-26 08:16:57 [facility] Elevated blood pressure affecting in third trimester, antepartum Elevated blood pressure affecting in third trimester, antepartum Disease Resolve d 04-20 00:00: 00 2017-04-26 00:00:00 2017-04-26 08:16:57 [facility] Costochond ritis, acute Costochond ritis, acute Disease Resolve d 07 00:00: 00 2017-04-26 00:00:00 2017-04-26 08:16:56 [facility] Abnormal ultrasound Abnormal ultrasound Disease Resolve d 01-31 00:00: 00 2017-04-26 00:00:00 2017-04-26 08:16:49 [facility] DM (diabetes mellitus) DM (diabetes mellitus) Disease Resolve d 2017-04-26 00:00:00 2017-04-26 08:16:45 [facility] Vertigo Vertigo Disease Resolve d 2017-04-26 00:00:00 2017-04-26 08:16:52 [facility] PID (pelvic inflammato ry disease) PID (pelvic inflammato ry disease) Disease Resolve d 2017-04-26 00:00:00 2017-04-26 08:16:55 [facility] 24 weeks gestation of 24 weeks gestation of Disease Resolve d 01-29 00:00: 00 2017-04-17 00:00:00 2017-04-17 11:32:15 [facility] Urinary tract infection, site not specified Urinary tract infection, site not specified Disease Resolve d 01-10 00:00: 00 2017-04-17 00:00:00 2017-04-17 11:32:30 [facility] HLD (hyperlipi demia) HLD (hyperlipi demia) Disease Resolve d 04-02 00:00: 00 2017-01-09 00:00:00 2022-02-26 00:17:23 [facility] Type 2 diabetes mellitus without complicati ons Type 2 diabetes mellitus without complicati ons Disease Resolve d 04-02 00:00: 00 2017-01-09 00:00:00 2022-02-26 00:17:23 [facility] control control Disease Resolve d 04-02 00:00: 00 2017-01-09 00:00:00 2017-01-09 14:13:47 [facility] Abdominal pain Abdominal pain Disease Resolve d 3-23 00:00: 00 2017-01-09 00:00:00 2022-02-26 00:07:55 [facility] Allergies, Adverse Reactions, Alerts Allergy Name Allergy Type Status Severity Reaction(s) Onset Date Inactive Date Treating Clinician Comments Source BUSPIRON E DRUG INGREDI Active High Other-Cmnt 10-24 00:00: 00 [facility] Buspiron e Propensi ty to adverse reaction s Active Other - See comments 10-24 00:00: 00 Can't sleep, cannot focus, confusion [facility] Buspiron e Drug Intolera nce Active Other - See comments 10-24 00:00: 00 Can't sleep, cannot focus, confusion [facility] Latex Drug Allergy Active Rash 12-06 00:00: 00 [facility] Latex Propensi ty to adverse reaction s Active Rash 12-06 00:00: 00 [facility] LATEX DRUG INGREDI Active Rash 12-06 00:00: 00 [facility] Social History Social Habit Start Date Stop Date Quantity Comments Source Gender identity [facility] Sexual orientation U [facility] Alcoholic beverage intake 2024-08-03 00:00:00 2024-08-03 00:00:00 Current non-drinker of alcohol (finding) [facility] Tobacco use and exposure 2024-03-19 00:00:00 2024-03-19 00:00:00 User of smokeless tobacco [facility] History of Social function 2024-01-23 00:00:00 2024-01-23 00:00:00 [facility] Cigarettes smoked current (pack per day) - Reported 2024-01-23 00:00:00 2024-01-23 00:00:00 [facility] Cigarette pack-years 2024-01-23 00:00:00 2024-01-23 00:00:00 [facility] Alcohol intake 2023-10-15 00:00:00 2023-10-15 00:00:00 Current non-drinker of alcohol (finding) [facility] Exposure to SARS-CoV-2 (event) 2022-12-30 00:00:00 2023-01-09 09:52:00 Not sure [facility] Tobacco Comment 2022-05-16 00:00:00 2022-05-16 00:00:00 vapes [facility] History of tobacco use 2016-12-31 00:00:00 2020-07-20 00:00:00 Smokes tobacco daily [facility] Sex assigned at 1985 00:00:00 1985 00:00:00 [facility] Smoking Status Start Date Stop Date Source Smokes tobacco daily 2024-03-19 00:00:00 [facility] Ex-smoker 2024-01-23 00:00:00 2024-01-23 00:00:00 [facility] Occasional tobacco smoker 2020-06-30 00:00:00 [facility] Medications Ordered Medication Name Filled Medication Name Start Date Stop Date Current Medication? Ordering Clinician Indication Dosage Frequency Signature (SIG) Comments Components Source meclizine 25 mg tablet 2023-08 00:00: 00 Yes [id number] TAKE 1 TABLET BY MOUTH EVERY 8 HOURS NEEDED [facility] proMETHazin e 12.5 mg tablet 2023-08 00:00: 00 Yes [id number] TAKE 2 TABLETS BY MOUTH EVERY 6 HOURS NEEDED FOR NAUSEA AND VOMITING [facility] celecoxib 100 mg capsule 2023-08 00:00: 00 Yes [id number] TAKE 1 CAPSULE BY MOUTH IN THE MORNING AND 1 IN THE EVENING WITH MEALS [facility] albuterol 90 mcg/actuati on inhaler 2023-08 00:00: 00 Yes [id number] 2{puff} Inhale 2 Puffs every 6 (six) hours as needed for Wheezing or Shortness of Breath. [facility] gabapentin 800 mg tablet 2023-08 00:00: 00 Yes [id number] 800mg Take 1 tablet by mouth at bedtime. [facility] MECLIZINE 25 mg tablet 2023-08 00:00: 00 07-24 00:00 :00 No [id number] TAKE 1 TABLET BY MOUTH EVERY 8 HOURS NEEDED [facility] PROMETHAZIN E 12.5 mg tablet 2023-08 00:00: 00 07-24 00:00 :00 No [id number] TAKE 2 TABLETS BY MOUTH EVERY 6 HOURS NEEDED FOR NAUSEA AND VOMITING [facility] gabapentin 600 mg tablet 2023-08 00:00: 00 Yes [id number] 600mg Take 1 tablet by mouth every morning and evening. [facility] tiZANidine 4 mg tablet 2023-08 00:00: 00 Yes [id number] TAKE 1 TABLET BY MOUTH THE MORNING, AND 1 TABLET BY MOUTH IN THE AFTERNOON, AND 2 TABLETS AT BEDTIME [facility] gabapentin 800 mg tablet 2023-08 00:00: 00 07-24 00:00 :00 No [id number] 800mg Take 1 tablet by mouth at bedtime. [facility] MECLIZINE 25 mg tablet 2023-08 00:00: 00 07-09 00:00 :00 No [id number] TAKE 1 TABLET BY MOUTH EVERY 8 HOURS NEEDED [facility] PROMETHAZIN E 12.5 mg tablet 2023-08 00:00: 00 07-09 00:00 :00 No [id number] TAKE 2 TABLETS BY MOUTH EVERY 6 HOURS NEEDED FOR NAUSEA AND VOMITING [facility] tirzepatide (MOUNJARO) 15 mg/0.5 mL subcutaneou s injection 05-05 00:00: 00 Yes [id number] 15mg inject 15 mg under the skin weekly. [facility] Insulin Glargine (LANTUS SOLOSTAR U-100 INSULIN) 100 unit/mL (3 mL) injection 05-05 00:00: 00 Yes [id number] 12U inject 12 Units under the skin in the morning. [facility] Insulin [place], Disposable, (BD INSULIN PEN NEEDLE UF) 31 gauge x 5/16" Ndle 05-05 00:00: 00 Yes [id number] Use as directed to administer [facility] fluticasone propionate 50 mcg/actuati on nasal spray 04-21 00:00: 00 Yes [id number] 1{spray } Use 1 [place] in each nostril in the morning. [facility] meclizine 25 mg tablet 04-21 00:00: 00 06-24 00:00 :00 No [id number] TAKE 1 TABLET BY MOUTH EVERY 8 HOURS NEEDED [facility] proMETHazin e 12.5 mg tablet 04-21 00:00: 00 05-21 00:00 :00 No [id number] TAKE 2 TABLETS BY MOUTH EVERY 6 HOURS NEEDED FOR NAUSEA AND VOMITING [facility] metroNIDAZO LE (FLAGYL) 500 mg tablet 04-18 00:00: 00 Yes [id number] 500mg Take 1 tablet by mouth every 12 (twelve) hours. [facility] fluconazole (DIFLUCAN) 150 mg tablet 04-18 00:00: 00 Yes [id number] 150mg Take 1 tablet by mouth every other day. [facility] tirzepatide (MOUNJARO) 12.5 mg/0.5 mL subcutaneou s injection 04-16 00:00: 00 05-05 00:00 :00 No [id number] 12.5mg inject 12.5 mg under the skin weekly. [facility] oxyCODONE 5 mg immediate release tablet 04-05 00:00: 00 04-13 04:59 :00 No [id number] 5mg Take 1 tablet by mouth every 6 (six) hours as needed for Pain (scale 7-10) for up to 7 days. Indication s: acute pain [facility] celecoxib 100 mg capsule 04-04 00:00: 00 07-24 00:00 :00 No [id number] TAKE 1 CAPSULE BY MOUTH IN THE MORNING AND 1 IN THE EVENING WITH MEALS [facility] tiZANidine 4 mg tablet 03-26 00:00: 00 06-25 00:00 :00 No [id number] TAKE 1 TABLET BY MOUTH THE MORNING, AND 1 TABLET BY MOUTH IN THE AFTERNOON, AND 2 TABLETS AT BEDTIME [facility] MECLIZINE 25 mg tablet 03-26 00:00: 00 04-21 00:00 :00 No [id number] TAKE 1 TABLET BY MOUTH EVERY 8 HOURS NEEDED [facility] celecoxib 100 mg capsule 03-26 00:00: 00 04-04 00:00 :00 No [id number] TAKE 1 CAPSULE BY MOUTH IN THE MORNING AND 1 IN THE EVENING WITH MEALS [facility] oxyCODONE 5 mg immediate release tablet 03-25 00:00: 00 04-02 04:59 :00 No [id number] 5mg Take 1 tablet by mouth every 6 (six) hours as needed for Pain (scale 7-10) for up to 7 days. Indication s: acute pain [facility] ondansetron (ZOFRAN (PF)) injection 4 mg 03-24 17:47: 31 03-24 21:58 :06 No 4mg [facility] HYDROmorpho ne (PF) (DILAUDID) injection 0.25 mg 03-24 17:21: 41 03-24 21:58 :06 No .25mg 0.25 mg, Slow IV Push, Q5MIN PRN, 4 doses, Starting on Sun03/24/24 at 1221, Until Sun03/24/24 at 1658, Routine, Pain (scale 4-6), PACU, Is this medication approved by a Faculty level provider? Yes, anthropology faculty member approving Restricted medication : PACU RECOVERY [facility] ondansetron (ZOFRAN (PF)) injection 4 mg 03-24 17:21: 41 03-24 21:58 :06 No 4mg 4 mg, Slow IV Push, PRN, 1 dose, Starting on Sun03/24/24 at 1221, Until Sun03/24/24 at 1658, Routine, Nausea and Vomiting (N/V), PACU [facility] lactated ringers IV infusion 1,000 mL 03-24 14:00: 00 03-24 14:38 :00 No 1000mL at 42 mL/hr, 1,000 mL, IV Infusion, ONCE, 1 dose, On Sun03/24/24 at 0900, Routine, DSU Pre-op [facility] celecoxib (CELEBREX) capsule 200 mg 03-24 13:55: 03 03-24 14:38 :00 No 200mg 200 mg, Oral, O.R. HOLDING ONCE, 1 dose, Starting on Sun03/24/24 at 0855, Until Sun03/24/24 at 0938, Routine, Pain, DSU Pre-op [facility] gabapentin (NEURONTIN) tablet 600 mg 03-24 13:55: 03 03-24 14:38 :00 No 600mg 600 mg, Oral, O.R. HOLDING ONCE, 1 dose, Starting on Sun03/24/24 at 0855, Until Sun03/24/24 at 0938, Routine, Surgery/Pr ocedure, DSU Pre-op [facility] acetaminoph en (TYLENOL) tablet 1,000 mg 03-24 13:55: 03 03-24 14:37 :00 No 1000mg 1,000 mg, Oral, O.R. HOLDING ONCE, 1 dose, Starting on Sun03/24/24 at 0855, Until Sun03/24/24 at 0937, Routine, Surgery / Procedure, DSU Pre-op [facility] gabapentin 300 mg capsule 03-24 00:00: 00 04-09 04:59 :00 No [id number] 300mg Take 1 capsule by mouth every 8 (eight) hours for 15 days. For pain scale 1-3 [facility] acetaminoph en 325 mg tablet 03-24 00:00: 00 04-09 04:59 :00 No [id number] 975mg Take 3 tablets by mouth every 8 (eight) hours for 15 days. [facility] ibuprofen 600 mg tablet 03-24 00:00: 00 04-09 04:59 :00 No [id number] 600mg TAKE 1 TABLET BY MOUTH EVERY 8 HOURS FOR 15 DAYS [facility] traMADoL 50 mg tablet 03-24 00:00: 00 04-01 04:59 :00 No [id number] 50mg Take 1 tablet by mouth every 8 (eight) hours as needed (pain) for up to 7 days. Indication s: acute pain [facility] FENTanyl PF (SUBLIMAZE (PF)) injection 03-20 18:31: 57 03-20 18:31 :57 No TITRATE - FOR PROCEDURE USE, 1 dose, Starting on Vicenta 03/20/24 at 1331, Until Vicenta 03/20/24 at 1331, Routine [facility] FENTanyl PF (SUBLIMAZE (PF)) injection 03-20 18:27: 16 03-20 18:27 :16 No TITRATE - FOR PROCEDURE USE, 1 dose, Starting on Vicenta 03/20/24 at 1327, Until Vicenta 03/20/24 at 1327, Routine [facility] lidocaine 1% (PF) (XYLOCAINE) injection 20 mL 03-20 18:25: 00 03-20 18:26 :00 No [id number] 20mL 20 mL, Infiltrati on, ONCE, 1 dose, On Vicenta 03/20/24 at 1330, Routine [facility] iohexoL (OMNIPAQUE 300-50 mL)) injection 3 mL 03-20 18:25: 00 03-20 18:26 :00 No [id number] 3mL 3 mL, Injection, ONCE, 1 dose, On Vicenta 03/20/24 at 1330, Routine [facility] triamcinolo ne acetonide (KENALOG) injection 80 mg 03-20 18:25: 00 03-20 18:26 :00 No [id number] 80mg 80 mg, Infiltrati on, ONCE, 1 dose, On Vicenta 24 at 1330, Routine [facility] bupivacaine (preserv free) (SENSORCAIN E MPF) 0.25 % (2.5 mg/mL) injection 4 mL 03-20 18:25: 00 03-20 18:26 :00 No [id number] 4mL 4 mL, Infiltrati on, ONCE, 1 dose, On Vicenta 03/20/24 at 1330, Routine [facility] midazolam (VERSED) injection 03-20 18:21: 50 03-20 18:21 :50 No TITRATE - FOR PROCEDURE USE, 1 dose, Starting on Vicenta 824 at 1321, Until Vicenta 824 at 1321, Routine [facility] FENTanyl PF (SUBLIMAZE (PF)) injection 03-20 18:20: 23 03-20 18:20 :23 No TITRATE - FOR PROCEDURE USE, 1 dose, Starting on Vicenta 824 at 1320, Until Vicenta 824 at 1320, Routine [facility] FENTanyl PF (SUBLIMAZE (PF)) injection 03-20 18:19: 20 03-20 18:19 :20 No TITRATE - FOR PROCEDURE USE, 1 dose, Starting on Vicenta 824 at 1319, Until Vicenta 824 at 1319, Routine [facility] midazolam (VERSED) injection 03-20 18:09: 00 03-20 18:09 :00 No TITRATE - FOR PROCEDURE USE, 1 dose, Starting on Vicenta 24 at 1309, Until [place] 824 at 1309, Routine [facility] lactated ringers IV infusion 500 mL 03-20 17:45: 00 03-21 05:44 :00 No [id number] 500mL [facility] PROMETHAZIN E 12.5 mg tablet 03-19 00:00: 00 04-21 00:00 :00 No [id number] TAKE 2 TABLETS BY MOUTH EVERY 6 HOURS NEEDED FOR NAUSEA AND VOMITING [facility] MECLIZINE 25 mg tablet 03-19 00:00: 00 03-26 00:00 :00 No [id number] TAKE 1 TABLET BY MOUTH EVERY 8 HOURS NEEDED [facility] gabapentin 800 mg tablet 03-14 00:00: 00 06-25 00:00 :00 No [id number] 800mg TAKE 1 TABLET BY MOUTH AT BEDTIME [facility] celecoxib 100 mg capsule 8 00:00: 00 03-24 00:00 :00 No [id number] TAKE 1 CAPSULE BY MOUTH IN THE MORNING AND 1 IN THE EVENING WITH MEALS [facility] MOUNJARO 15 mg/0.5 mL subcutaneou s injection 31 00:00: 00 04-16 00:00 :00 No [facility] gabapentin 600 mg tablet 24 00:00: 00 06-25 00:00 :00 No 600mg Take 1 tablet by mouth every morning and evening. [facility] proMETHazin e 12.5 mg tablet 02-27 00:00: 00 03-19 00:00 :00 No [id number] 25mg Take 2 tablets by mouth every 6 (six) hours as needed for nausea vomitting [facility] meclizine 25 mg tablet 02-27 00:00: 00 03-19 00:00 :00 No [id number] 25mg Take 1 tablet by mouth every 8 (eight) hours as needed. [facility] Blood-Gluco se Sensor (DEXCOM G7 SENSOR) Lisa 02-12 00:00: 00 03-24 00:00 :00 No [id number] Use as directed every 10 days [facility] MECLIZINE 25 mg tablet 02-11 00:00: 00 02-26 00:00 :00 No [id number] TAKE 1 TABLET BY MOUTH EVERY 8 HOURS NEEDED [facility] cholecalcif chris, vitamin D3, (VITAMIN D3) 25 mcg (1,000 unit) tablet 02-07 12:56: 00 Yes 1000U Take 1 tablet by mouth in the morning. [facility] Vitamin B-12 1,000 mcg tablet 02-07 12:56: 00 Yes 1000ug Take 1 tablet by mouth in the morning. [facility] lidocaine HCL (ASPERCREME , LIDOCAINE HCL,) 4 % Crea 02-07 00:00: 00 Yes [id number] 1{each} Apply to area(s) in the morning and in the evening. [facility] Miscellaneo us Medical Supply Kit 02-07 00:00: 00 Yes [id number] Use as directed [facility] BABY ASPIRIN ORAL 02-05 13:42: 47 Yes Take by mouth. [facility] atorvastati n 20 mg tablet 02-03 00:00: 00 Yes [id number] 20mg Take 1 tablet by mouth at bedtime. [facility] metFORMIN 1,000 mg tablet 02-03 00:00: 00 Yes [id number] 1000mg Take 1 tablet by mouth in the morning and 1 tablet in the evening. Take with meals. [facility] empaglifloz in (JARDIANCE) 25 mg Tab tablet 02-03 00:00: 00 05-05 00:00 :00 No [id number] 25mg Take 1 tablet by mouth every morning. [facility] pioglitazon e 30 mg tablet 02-03 00:00: 00 05-05 00:00 :00 No [id number] 30mg Take 1 tablet by mouth in the morning. [facility] tirzepatide (MOUNJARO) 12.5 mg/0.5 mL subcutaneou s injection 02-03 00:00: 00 04-16 00:00 :00 No [id number] 12.5mg inject 12.5 mg under the skin weekly. [facility] gabapentin 600 mg tablet 02-03 00:00: 00 03-14 00:00 :00 No 600mg Take 1 tablet by mouth every morning and evening. [facility] PROMETHAZIN E 12.5 mg tablet 02-03 00:00: 00 02-26 00:00 :00 No [id number] TAKE 2 TABLETS BY MOUTH EVERY 6 HOURS NEEDED FOR NAUSEA AND VOMITING [facility] Blood-Gluco se Sensor (FREESTYLE ANTOINETTE 3 SENSOR) Lisa 02-03 00:00: 00 02-12 00:00 :00 No [id number] Use as directed every 2 weeks [facility] Blood-Gluco se Meter,Ryder blake (FREESTYLE ANTOINETTE 3 READER) [facility] 02-03 00:00: 00 02-04 04:59 :00 No [id number] 1{each} inject 1 Each under the skin once now for 1 dose. Use as directed with sensor [facility] escitalopra m oxalate 20 mg tablet 01-22 00:00: 00 Yes [id number] 20mg Take 1 tablet by mouth in the morning. [facility] fluticasone propionate 50 mcg/actuati on nasal spray 01-22 00:00: 00 04-21 00:00 :00 No [id number] 1{spray } Use 1 [place] in each nostril in the morning. [facility] atorvastati n 20 mg tablet 01-22 00:00: 00 02-03 00:00 :00 No [id number] 20mg Take 1 tablet by mouth at bedtime. [facility] nystatin 100,000 unit/gram powder 01-14 00:00: 00 Yes [id number] Apply to area(s) 2 (two) times daily. [facility] Zinc Oxide 10 % ointment 01-14 00:00: 00 03-24 00:00 :00 No [id number] Apply to area(s) 2 (two) times daily. [facility] MECLIZINE 25 mg tablet 01-14 00:00: 00 02-11 00:00 :00 No [id number] TAKE 1 TABLET BY MOUTH EVERY 8 HOURS NEEDED [facility] tiZANidine 4 mg tablet 01-13 00:00: 00 03-26 00:00 :00 No [id number] TAKE 1 TABLET BY MOUTH THE MORNING, AND 1 TABLET BY MOUTH IN THE AFTERNOON, AND 2 TABLETS AT BEDTIME [facility] atorvastati n 20 mg tablet 2024-0 5-15 00:00: 00 01-22 00:00 :00 No [id number] 20mg Take 1 tablet by mouth at bedtime. [facility] tirzepatide 15 mg/0.5 mL subcutaneou s injection -08 00:00: 00 02-03 00:00 :00 No [id number] 15mg inject 15 mg under the skin weekly. [facility] PROMETHAZIN E 12.5 mg tablet 12-03 00:00: 00 02-03 00:00 :00 No [id number] TAKE 2 TABLETS BY MOUTH EVERY 6 HOURS NEEDED FOR NAUSEA AND VOMITING [facility] MECLIZINE 25 mg tablet 12-03 00:00: 00 01-14 00:00 :00 No [id number] TAKE 1 TABLET BY MOUTH EVERY 8 HOURS NEEDED [facility] mupirocin 2 % ointment 11-11 00:00: 00 03-24 00:00 :00 No APPLY TO AFFECTED AREA FOUR TIMES A DAY [facility] ESCITALOPRA M OXALATE 20 mg tablet 11-05 00:00: 00 01-22 00:00 :00 No [id number] 20mg TAKE 1 TABLET BY MOUTH IN THE MORNING [facility] PROMETHAZIN E 12.5 mg tablet - 00:00: 00 12-03 00:00 :00 No [id number] TAKE 2 TABLETS BY MOUTH EVERY 6 HOURS NEEDED FOR NAUSEA AND VOMITING [facility] MECLIZINE 25 mg tablet 0 - 00:00: 00 12-03 00:00 :00 No [id number] TAKE 1 TABLET BY MOUTH EVERY 8 HOURS NEEDED [facility] MECLIZINE 25 mg tablet 3-05 00:00: 00 11-05 00:00 :00 No [id number] TAKE 1 TABLET BY MOUTH EVERY 8 HOURS NEEDED [facility] insulin NPH (NOVOLIN N NPH U-100 INSULIN) 100 unit/mL injection 04 15:10: 13 10-14 00:00 :00 No 5U inject 5 Units under the skin every morning and evening. [facility] insulin NPH (NOVOLIN N NPH U-100 INSULIN) 100 unit/mL injection 10-14 00:00: 00 05-05 00:00 :00 No [id number] 5U inject 5 Units under the skin every morning and evening. [facility] empaglifloz in (JARDIANCE) 25 mg Tab tablet 10-14 00:00: 00 02-03 00:00 :00 No [id number] 25mg Take 1 tablet by mouth every morning. [facility] metFORMIN 1,000 mg tablet 10-14 00:00: 00 02-03 00:00 :00 No [id number] 1000mg Take 1 tablet by mouth in the morning and 1 tablet in the evening. Take with meals. [facility] pioglitazon e 30 mg tablet 10-14 00:00: 00 02-03 00:00 :00 No [id number] 30mg Take 1 tablet by mouth in the morning. [facility] tirzepatide (MOUNJARO) 12.5 mg/0.5 mL subcutaneou s injection 10-14 00:00: 00 02-03 00:00 :00 No [id number] 12.5mg inject 12.5 mg under the skin weekly. [facility] PROMETHAZIN E 12.5 mg tablet 09-21 00:00: 00 11-05 00:00 :00 No [id number] TAKE 2 TABLETS BY MOUTH EVERY 6 HOURS NEEDED FOR NAUSEA AND VOMITING [facility] MECLIZINE 25 mg tablet 09-21 00:00: 00 10-15 00:00 :00 No [id number] TAKE 1 TABLET BY MOUTH EVERY 8 HOURS NEEDED [facility] FENTanyl PF (SUBLIMAZE (PF)) injection 09-12 20:56: 10 09-12 20:56 :10 No Slow IV Push, TITRATE - FOR PROCEDURE USE, 1 dose, Starting on Sun09/12/23 at 1456, Until Sun09/12/23 at 1456, Routine [facility] midazolam (VERSED) injection 09-12 20:46: 26 09-12 20:46 :26 No IV Push, TITRATE - FOR PROCEDURE USE, 1 dose, Starting on Sun09/12/23 at 1446, Until Sun09/12/23 at 1446, Routine [facility] FENTanyl PF (SUBLIMAZE (PF)) injection 09-12 20:40: 07 09-12 20:40 :07 No Slow IV Push, TITRATE - FOR PROCEDURE USE, 1 dose, Starting on Sun09/12/23 at 1440, Until Sun09/12/23 at 1440, Routine [facility] FENTanyl PF (SUBLIMAZE (PF)) injection 09-12 20:34: 23 09-12 20:34 :23 No Slow IV Push, TITRATE - FOR PROCEDURE USE, 1 dose, Starting on Sun09/12/23 at 1434, Until Sun09/12/23 at 1434, Routine [facility] lidocaine 1% (PF) (XYLOCAINE) injection 10 mL 09-12 20:30: 00 09-12 20:34 :00 No [id number] 10mL [facility] triamcinolo ne acetonide (KENALOG) injection 80 mg 09-12 20:30: 00 09-12 20:35 :00 No [id number] 80mg [facility] sodium bicarbonate 1 mEq/mL (8.4 %) injection 1 mL 09-12 20:30: 00 09-12 20:34 :00 No [id number] 1mL [facility] bupivacaine (preserv free) (SENSORCAIN E MPF) 0.25 % (2.5 mg/mL) injection 4 mL 09-12 20:30: 00 09-12 20:33 :00 No [id number] 4mL [facility] iohexoL (OMNIPAQUE 300-50 mL)) injection 1 mL 09-12 20:30: 00 09-12 20:33 :00 No [id number] 1mL [facility] midazolam (VERSED) injection 09-12 20:29: 00 09-12 20:29 :00 No IV Push, TITRATE - FOR PROCEDURE USE, 1 dose, Starting on Sun09/12/23 at 1429, Until Sun09/12/23 at 1429, Routine [facility] lactated ringers IV infusion 500 mL 09-12 20:15: 00 09-12 20:25 :00 No [id number] 500mL [facility] celecoxib 100 mg capsule 08-24 00:00: 00 03-14 00:00 :00 No [id number] TAKE 1 CAPSULE BY MOUTH IN THE MORNING AND 1 IN THE EVENING WITH MEALS [facility] PROMETHAZIN E 12.5 mg tablet 08-24 00:00: 00 09-21 00:00 :00 No [id number] TAKE 2 TABLETS BY MOUTH EVERY 6 HOURS NEEDED FOR NAUSEA AND VOMITING [facility] PROMETHAZIN E 12.5 mg tablet 2022-08 00:00: 00 Yes [id number] TAKE 2 TABLETS BY MOUTH EVERY 6 HOURS NEEDED FOR NAUSEA AND VOMITING [facility] tirzepatide (MOUNJARO) 10 mg/0.5 mL PnIj 2022-08 00:00: 00 10-14 00:00 :00 No [id number] 10mg inject 10 mg under the skin weekly. [facility] glyBURIDE 5 mg tablet 2022-08 1-16 00:00: 00 10-14 00:00 :00 No [id number] TAKE 1 TABLET BY MOUTH TWICE DAILY . APPOINTMEN T REQUIRED FOR FUTURE REFILLS [facility] PROMETHAZIN E 12.5 mg tablet 2022-08 1-14 00:00: 00 08-09 00:00 :00 No [id number] TAKE 2 TABLETS BY MOUTH EVERY 6 HOURS NEEDED FOR NAUSEA AND VOMITING [facility] GABAPENTIN 600 mg tablet 2022-08 00:00: 00 02-03 00:00 :00 No [id number] 600mg TAKE 1 TABLET BY MOUTH IN THE MORNING AND 1 IN THE EVENING [facility] empaglifloz in (JARDIANCE) 25 mg Tab 2022-08 0-30 00:00: 00 10-14 00:00 :00 No [id number] 25mg Take 1 tablet by mouth every morning. [facility] metFORMIN 1,000 mg tablet 2022-08 030 00:00: 00 10-14 00:00 :00 No [id number] 1000mg Take 1 tablet by mouth in the morning and 1 tablet in the evening. Take with meals. [facility] pioglitazon e 30 mg tablet 2022-08 00:00: 00 10-14 00:00 :00 No [id number] 30mg Take 1 tablet by mouth in the morning. [facility] tirzepatide (MOUNJARO) 10 mg/0.5 mL PnIj 2022-08 030 00:00: 00 07-20 00:00 :00 No [id number] 10mg inject 10 mg under the skin weekly. [facility] atorvastati n 20 mg tablet 2022-08 0 00:00: 00 12-25 00:00 :00 No [id number] 20mg Take 1 tablet by mouth at bedtime. [facility] meclizine 25 mg tablet 2022-08 0-25 00:00: 00 09-21 00:00 :00 No [id number] TAKE 1 TABLET BY MOUTH EVERY 8 HOURS NEEDED [facility] PROMETHAZIN E 12.5 mg tablet 2022-08 0-20 00:00: 00 06-26 00:00 :00 No [id number] TAKE 2 TABLETS BY MOUTH EVERY 6 HOURS NEEDED FOR NAUSEA AND VOMITING [facility] lidocaine 1% (PF) (XYLOCAINE) injection 10 mL 05-11 19:45: 00 05-11 18:46 :00 No [id number] 10mL [facility] bupivacaine (preserv free) (SENSORCAIN E MPF) 0.25 % (2.5 mg/mL) injection 4 mL 05-11 19:45: 00 05-11 18:46 :00 No [id number] 4mL [facility] triamcinolo ne acetonide (KENALOG) injection 40 mg 05-11 19:30: 00 05-11 18:47 :00 No [id number] 40mg [facility] FENTanyl PF (SUBLIMAZE (PF)) injection 05-11 18:56: 34 05-11 18:56 :34 No Slow IV Push, TITRATE - FOR PROCEDURE USE, 1 dose, Starting on Sun05/11/23 at 1356, Until Sun05/11/23 at 1356, Routine [facility] FENTanyl PF (SUBLIMAZE (PF)) injection 05-11 18:45: 00 05-11 18:45 :00 No Slow IV Push, TITRATE - FOR PROCEDURE USE, 1 dose, Starting on Sun05/11/23 at 1345, Until Sun05/11/23 at 1345, Routine [facility] FENTanyl PF (SUBLIMAZE (PF)) injection 05-11 18:43: 00 05-11 18:43 :00 No Slow IV Push, TITRATE - FOR PROCEDURE USE, 1 dose, Starting on Sun05/11/23 at 1343, Until Sun05/11/23 at 1343, Routine [facility] midazolam (VERSED) injection 05-11 18:38: 00 05-11 18:38 :00 No IV Push, TITRATE - FOR PROCEDURE USE, 1 dose, Starting on Sun05/11/23 at 1338, Until Sun05/11/23 at 1338, Routine [facility] ondansetron (ZOFRAN (PF)) injection 05-11 18:37: 00 05-11 18:37 :00 No TITRATE - FOR PROCEDURE USE, 1 dose, Starting on Sun05/11/23 at 1337, Until Sun05/11/23 at 1337, Routine [facility] lactated ringers IV infusion 500 mL 05-11 18:15: 00 05-11 18:15 :00 No [id number] 500mL [facility] fluconazole 200 mg tablet 05-08 00:00: 00 03-24 00:00 :00 No [id number] 200mg Take 1 tablet by mouth every 3 (three) days. [facility] ampicillin 500 mg capsule 05-08 00:00: 00 05-16 04:59 :00 No [id number] 500mg Take 1 capsule by mouth every 6 (six) hours for 7 days. [facility] glyBURIDE 5 mg tablet 05-07 00:00: 00 06-11 00:00 :00 No [id number] TAKE 1 TABLET BY MOUTH TWICE DAILY . APPOINTMEN T REQUIRED FOR FUTURE REFILLS [facility] NOVOLIN N NPH U-100 INSULIN 100 unit/mL injection 05-03 00:00: 00 10-14 00:00 :00 No [id number] INJECT 10 UNITS UNDER THE SKIN IN THE MORNING. INJECT ONLY IF FASTING BLOOD SUGAR GREATER THAN 150 [facility] PROMETHAZIN E 12.5 mg tablet 04-10 00:00: 00 06-01 00:00 :00 No [id number] TAKE 2 TABLETS BY MOUTH EVERY 6 HOURS NEEDED FOR NAUSEA AND VOMITING [facility] lactated ringers IV infusion 1,000 mL 04-09 14:45: 00 Yes 1000mL at 100 mL/hr, 1,000 mL, IV Infusion, CONTINUOUS , Starting on Sun04/09/23 at 0945, Until Discontinu ed, Routine, PACU [facility] ondansetron (ZOFRAN (PF)) injection 4 mg 04-09 14:30: 37 Yes 4mg 4 mg, Slow IV Push, PRN, 1 dose, Starting on Sun04/09/23 at 0930, Until Discontinu ed, Routine, Nausea and Vomiting (N/V), PACU [facility] lactated ringers IV infusion 04-09 13:54: 00 04-09 14:16 :45 No IV Infusion, CONTINUOUS PRN, Starting on Sun04/09/23 at 0854, Until Sun04/09/23 at 0916, Routine, Intra-op [facility] propofoL IV infusion 04-09 13:54: 00 04-09 14:16 :45 No IV Infusion, ONCE INTRA PROCEDURE, Starting on Sun04/09/23 at 0854, Until Sun04/09/23 at 0916, Routine, Intra-op [facility] lidocaine 2% (XYLOCAINE) 20 mg/mL (2 %) injection 04-09 13:54: 00 04-09 14:16 :45 No Intravenou s, ONCE INTRA PROCEDURE, Starting on Sun04/09/23 at 0854, Until Sun04/09/23 at 0916, Routine, Intra-op [facility] midazolam (VERSED) injection 04-09 13:54: 00 04-09 14:16 :45 No IV Push, ONCE INTRA PROCEDURE, Starting on Sun04/09/23 at 0854, Until Sun04/09/23 at 09, Routine, Intra-op [facility] lactated ringers IV infusion 1,000 mL 04-09 12:45: 00 04-09 13:04 :00 No 1000mL at 42 mL/hr, 1,000 mL, IV Infusion, ONCE, 1 dose, On Sun04/09/23 at 0745, Routine, Endo Pre-op [facility] semaglutide (OZEMPIC) 2 mg/dose (8 mg/3 mL) PnIj 04-03 00:00: 00 06-11 00:00 :00 No [id number] INJECT TWO (2) MG UNDER THE SKIN ONCE WEEKLY. [facility] NOVOLIN N NPH U-100 INSULIN 100 unit/mL injection 03-27 00:00: 00 05-03 00:00 :00 No [id number] INJECT 10 UNITS UNDER THE SKIN IN THE MORNING. INJECT ONLY IF FASTING BLOOD SUGAR GREATER THAN 150 [facility] JARDIANCE 25 mg Tab 03-14 00:00: 00 06-11 00:00 :00 No [id number] TAKE 1 TABLET BY MOUTH ONCE DAILY IN THE MORNING [facility] metformin ER 500 mg 24 hr tablet 03-14 00:00: 00 06-11 00:00 :00 No [id number] TAKE 2 TABLETS BY MOUTH IN THE MORNING AND TAKE 3 TABLETS IN THE EVENING( NEEDS APPOINTMEN T) [facility] gabapentin 800 mg tablet 03-13 00:00: 00 03-14 00:00 :00 No [id number] 800mg Take 1 tablet by mouth at bedtime. [facility] Miscellaneo us Medical Supply Kit 03-13 00:00: 00 02-06 00:00 :00 No [id number] Use as directed [facility] tiZANidine 4 mg tablet 03-13 00:00: 00 01-13 00:00 :00 No [id number] Take 1 tablet morning and afternoon, 2 tablets at bedtime [facility] celecoxib 100 mg capsule 03-13 00:00: 00 08-24 00:00 :00 No [id number] 100mg Take 1 capsule by mouth in the morning and 1 capsule in the evening. Take with meals. [facility] gabapentin 600 mg tablet 03-13 00:00: 00 06-15 00:00 :00 No [id number] 600mg Take 1 tablet by mouth in the morning and 1 tablet in the evening. [facility] NuvaRing 0.12-0.015 mg/24 hr vaginal insert 03-08 00:00: 00 09-10 00:00 :00 No [id number] 1{each} Insert 1 Each into vagina once every month. Insert vaginally and leave in place for 3 consecutiv e weeks, then remove for 1 week. [facility] escitalopra m oxalate (LEXAPRO) 20 mg tablet 03-06 00:00: 00 11-05 00:00 :00 No [id number] 20mg Take 1 tablet by mouth in the morning. [facility] meclizine 25 mg tablet 03-06 00:00: 06-06 00:00 :00 No [id number] TAKE 1 TABLET BY MOUTH EVERY 8 HOURS NEEDED [facility] atorvastati n 20 mg tablet 03-06 00:00: 06-06 00:00 :00 No [id number] 20mg Take 1 tablet by mouth at bedtime. [facility] proMETHazin e 12.5 mg tablet 03-06 00:00: 04-10 00:00 :00 No [id number] TAKE 2 TABLETS BY MOUTH EVERY 6 HOURS NEEDED FOR NAUSEA AND VOMITING [facility] semaglutide (OZEMPIC) 2 mg/dose (8 mg/3 mL) Ij 03-06 00:00: 04-03 00:00 :00 No [id number] INJECT 2 MG UNDER THE SKIN WEEKLY [facility] OZEMPIC 2 mg/dose (8 mg/3 mL) PnIj 02-27 00:00: 03-06 00:00 :00 No [id number] INJECT 2 MG UNDER THE SKIN WEEKLY [facility] NuvaRing 0.12-0.015 mg/24 hr vaginal insert 02-05 00:00: 03-08 00:00 :00 No [id number] 1{each} Insert 1 Each into vagina once every month. Insert vaginally and leave in place for 3 consecutiv e weeks, then remove for 1 week. [facility] tiZANidine 4 mg tablet 01-31 00:00: 00 03-13 00:00 :00 No [id number] 9100 Take 1 tablet by mouth three times daily as needed for muscle spasm [facility] gabapentin 600 mg tablet 01-30 00:00: 03-13 00:00 :00 No [id number] 600mg Take 1 tablet by mouth in the morning and 1 tablet at noon and 1 tablet in the evening. [facility] insulin NPH (NOVOLIN N NPH U-100 INSULIN) 100 unit/mL injection 01-27 00:00: 00 Yes [id number] 10U inject 10 Units under the skin in the morning. Inject only if fasting BG >150 [facility] glyBURIDE 5 mg tablet 01-25 00:00: 00 05-07 00:00 :00 No [id number] TAKE 1 TABLET BY MOUTH TWICE DAILY (NEEDS FOLLOW UP VISIT FOR FURTHER REFILLS [facility] PROMETHAZIN E 12.5 mg tablet 01-25 00:00: 00 03-06 00:00 :00 No [id number] TAKE 2 TABLETS BY MOUTH EVERY 6 HOURS NEEDED FOR NAUSEA AND VOMITING [facility] lidocaine HCL (ASPERCREME , LIDOCAINE HCL,) 4 % Crea 01-19 00:00: 00 02-06 00:00 :00 No [id number] 1{each} Apply 1 Each to area(s) in the morning and 1 Each in the evening. [facility] pantoprazol e 40 mg EC tablet 01-01 00:00: 00 03-24 00:00 :00 No [id number] 40mg Take 1 tablet by mouth in the morning. [facility] OZEMPIC 2 mg/dose (8 mg/3 mL) PnIj 12-27 00:00: 00 02-27 00:00 :00 No INJECT 2 MG UNDER THE SKIN WEEKLY [facility] metformin ER 500 mg 24 hr tablet 12-26 00:00: 00 01-19 00:00 :00 No TAKE 2 TABLETS BY MOUTH IN THE MORNING AND TAKE 3 TABLETS IN THE EVENING( NEEDS APPOINTMEN T) [facility] JARDIANCE 25 mg Tab 12-12 00:00: 00 03-14 00:00 :00 No [id number] TAKE 1 TABLET BY MOUTH ONCE DAILY IN THE MORNING [facility] meloxicam 15 mg tablet 12-12 00:00: 00 03-13 00:00 :00 No [id number] 15mg Take 1 tablet by mouth in the morning. [facility] triamcinolo ne acetonide (KENALOG) injection 80 mg 12-11 17:00: 00 12-11 15:56 :00 No [id number] 80mg [facility] sodium bicarbonate 1 mEq/mL (8.4 %) injection 0.5 mL 12-11 17:00: 00 12-11 15:55 :00 No [id number] .5mL [facility] lidocaine 1% (PF) (XYLOCAINE) injection 10 mL 12-11 17:00: 00 12-11 15:55 :00 No [id number] 10mL [facility] NaCl 0.9% (NS) injection 10 mL 12-11 16:45: 00 12-11 15:55 :00 No [id number] 10mL [facility] NaCl 0.9% (NS) IV infusion 250 mL 12-11 15:30: 00 12-11 15:11 :00 No [id number] 250mL [facility] meclizine 25 mg tablet 12-07 00:00: 00 03-06 00:00 :00 No [id number] TAKE 1 TABLET BY MOUTH EVERY 8 HOURS NEEDED [facility] ONDANSETRON HCL ORAL 11-29 11:48: 30 11-29 00:00 :00 No Take by mouth. [facility] fluticasone propionate 50 mcg/actuati on nasal spray -19 00:00: 00 01-22 00:00 :00 No [id number] 1{spray } Use 1 [place] in each nostril in the morning. [facility] proMETHazin e 12.5 mg tablet 3-28 00:00: 00 01-25 00:00 :00 No [id number] 25mg Take 2 tablets by mouth every 6 (six) hours as needed for Nausea and Vomiting (N/V). [facility] semaglutide (OZEMPIC) 1 mg/dose (4 mg/3 mL) PnIj -20 00:00: 00 01-19 00:00 :00 No [id number] 1mg inject 1 mg under the skin weekly. [facility] al[facility] mcg/actuati on inhaler 10-26 00:00: 00 07-24 00:00 :00 No [id number] 2{puff} Inhale 2 Puffs every 6 (six) hours as needed for Wheezing or Shortness of Breath. [facility] glyBURIDE 5 mg tablet 10-26 00:00: 00 01-24 00:00 :00 No [id number] TAKE 1 TABLET BY MOUTH TWICE DAILY (NEEDS FOLLOW UP VISIT FOR FURTHER REFILLS [facility] gabapentin 600 mg tablet 10-24 00:00: 00 01-30 00:00 :00 No [id number] 600mg Take 1 tablet by mouth in the morning and 1 tablet at noon and 1 tablet in the evening. [facility] Butalbital- Acetaminoph en-Caff 50-300-40 mg per capsule 2- 00:00: 00 03-24 00:00 :00 No TAKE 1 CAPSULE BY MOUTH EVERY 6 HOURS NEEDED [facility] ondansetron 4 mg tablet 2- 00:00: 00 03-24 00:00 :00 No TAKE 1 TABLET BY MOUTH EVERY 12 HOURS NEEDED [facility] meclizine 25 mg tablet 2-22 00:00: 00 12-07 00:00 :00 No TAKE 1 TABLET BY MOUTH EVERY 8 HOURS NEEDED [facility] escitalopra m oxalate (LEXAPRO) 20 mg tablet 2- 00:00: 00 03-06 00:00 :00 No [id number] 20mg Take 1 tablet by mouth in the morning. [facility] tiZANidine 4 mg tablet 2-20 00:00: 00 01-31 00:00 :00 No [id number] 9100 4mg Take 1 tablet by mouth 3 (three) times daily as needed (muscle spasm). [facility] atorvastati n 20 mg tablet 09-21 00:00: 00 03-06 00:00 :00 No [id number] 20mg Take 1 tablet by mouth at bedtime. [facility] busPIRone 5 mg tablet 09-21 00:00: 00 11-10 00:00 :00 No [id number] 5mg Take 1 tablet by mouth 2 (two) times daily as needed (anxiety). [facility] bupivacaine (preserv free) (SENSORCAIN E MPF) 0.25 % (2.5 mg/mL) injection 4 mL 09-15 17:15: 00 09-15 17:19 :00 No [id number] 4mL [facility] lidocaine 1% (PF) (XYLOCAINE) injection 14 mL 09-15 17:15: 00 09-15 17:06 :00 No [id number] 14mL [facility] triamcinolo ne acetonide (KENALOG) injection 80 mg 09-15 17:15: 00 09-15 17:12 :00 No [id number] 80mg [facility] lactated ringers IV infusion 500 mL 09-15 16:45: 00 09-15 17:06 :00 No [id number] 500mL [facility] meloxicam 15 mg tablet 2- 00:00: 00 10-26 00:00 :00 No [id number] 15mg Take 1 tablet by mouth in the morning. [facility] pioglitazon e 30 mg tablet 2- 00:00: 00 06-11 00:00 :00 No [id number] 30mg Take 1 tablet by mouth in the morning. [facility] metFORMIN 1,000 mg tablet 2-01 00:00: 00 06-11 00:00 :00 No [id number] 1000mg Take 1 tablet by mouth in the morning and 1 tablet in the evening. Take with meals. [facility] semaglutide (OZEMPIC) 1 mg/dose (4 mg/3 mL) PnIj 2- 00:00: 00 10-26 00:00 :00 No [id number] 1mg inject 1 mg under the skin weekly. [facility] tirzepatide (MOUNJARO) 2.5 mg/0.5 mL PnIj 2- 00:00: 00 09-13 00:00 :00 No [id number] 2.5mg inject 2.5 mg under the skin weekly. [facility] ONDANSETRON HCL ORAL - 09:40: 30 Yes Take by mouth. [facility] LORazepam (ATIVAN) tablet 1 mg 1-04 20:15: 00 08-16 19:20 :00 No [id number] 1mg 1 mg, Oral, ONCE, 1 dose, On Sun08/16/22 at 1415, Routine [facility] JARDIANCE 25 mg Tab 1-04 00:00: 00 12-12 00:00 :00 No [id number] TAKE 1 TABLET BY MOUTH ONCE DAILY IN THE MORNING [facility] PROMETHAZIN E 12.5 mg tablet 1- 00:00: 00 11-07 00:00 :00 No [id number] TAKE 2 TABLETS BY MOUTH EVERY 6 HOURS NEEDED FOR VERTIGO [facility] HYDROXYZINE 25 mg tablet 1-04 00:00: 00 09-21 00:00 :00 No [id number] TAKE 1 TABLET BY MOUTH EVERY 8 HOURS NEEDED FOR ITCHING [facility] fluconazole 200 mg tablet 2021-08 2-08 00:00: 00 12-28 00:00 :00 No [id number] 200mg Take 1 tablet by mouth in the morning. [facility] terconazole 0.4 % vaginal cream 2021-08 2-07 00:00: 00 08-02 00:00 :00 No [id number] 1{appli cator} Insert 1 Applicator into vagina at bedtime. [facility] NuvaRing 0.12-0.015 mg/24 hr vaginal insert 2021-08 00:00: 00 02-05 00:00 :00 No [id number] 1{each} Insert 1 Each into vagina once every month. Insert vaginally and leave in place for 3 consecutiv e weeks, then remove for 1 week. [facility] lactated ringers IV infusion 500 mL 2021-08 21:45: 00 06-30 20:39 :00 No [id number] 500mL [facility] lidocaine 1% (PF) (XYLOCAINE) injection 10 mL 2021-08 20:37: 00 06-30 20:37 :00 No [id number] 10mL [facility] triamcinolo ne acetonide (KENALOG) injection 80 mg 2021-08 20:37: 00 06-30 20:38 :00 No [id number] 80mg [facility] bupivacaine (preserv free) (SENSORCAIN E MPF) 0.25 % (2.5 mg/mL) injection 4 mL 2021-08 20:36: 00 06-30 20:38 :00 No [id number] 4mL [facility] HYDROXYZINE 25 mg tablet 2021-08 00:00: 00 08-16 00:00 :00 No [id number] TAKE 1 TABLET BY MOUTH EVERY 8 HOURS NEEDED FOR ITCHING [facility] PROMETHAZIN E 12.5 mg tablet 2021-08 00:00: 00 07-17 00:00 :00 No [id number] TAKE 1 TABLET BY MOUTH ONCE DAILY NEEDED FOR NAUSEA AND VOMITING [facility] proMETHazin e 12.5 mg tablet 2021-08 0-10 00:00: 00 06-28 00:00 :00 No [id number] 12.5mg Take 1 tablet by mouth once daily as needed for Nausea and Vomiting (N/V). [facility] gabapentin 400 mg capsule 2021-08 00:00: 00 10-24 00:00 :00 No [id number] 9100 400mg Take 1 capsule by mouth in the morning and 1 capsule at noon and 1 capsule in the evening. [facility] tiZANidine 4 mg tablet 2021-08 00:00: 00 10-01 00:00 :00 No [id number] 9100 4mg Take 1 tablet by mouth 3 (three) times daily as needed (muscle spasm). [facility] meloxicam 15 mg tablet 2021-08 00:00: 00 09-15 00:00 :00 No [id number] 15mg Take 1 tablet by mouth in the morning. [facility] metformin ER 500 mg 24 hr tablet 04-21 00:00: 00 09-13 00:00 :00 No [id number] TAKE 2 TABLETS BY MOUTH ONCE DAILY IN THE MORNING AND 3 ONCE DAILY IN THE EVENING. [facility] dulaglutide (TRULICITY) 0.75 mg/0.5 mL PnIj 04-21 00:00: 00 09-13 00:00 :00 No [id number] .75mg inject 1 Pen under the skin weekly. [facility] hydrOXYzine 25 mg tablet 04-21 00:00: 00 06-28 00:00 :00 No [id number] 25mg Take 1 tablet by mouth every 8 (eight) hours as needed for Itching. [facility] insulin NPH (NOVOLIN N NPH U-100 INSULIN) 100 unit/mL injection 04-18 00:00: 00 09-13 00:00 :00 No [id number] INJECT 20 UNITS SUBCUTANEO USLY ONCE DAILY WITH BREAKFAST [facility] insulin regular human (NOVOLIN R REGULAR U-100 INSULN) 100 unit/mL injection 04-18 00:00: 00 09-13 00:00 :00 No [id number] INJECT 15 UNITS SUBCUTANEO USLY THREE TIMES DAILY BEFORE MEAL(S) [facility] ondansetron 4 mg disintegrat ing tablet 04-18 00:00: 07-17 00:00 :00 No [id number] DISSOLVE 1 TABLET IN MOUTH EVERY 8 HOURS NEEDED FOR NAUSEA AND VOMITING FOR UP TO 4 DAYS [facility] gabapentin 400 mg capsule 04-18 00:00: 05-16 00:00 :00 No [id number] 9100 400mg Take 1 capsule by mouth in the morning and 1 capsule at noon and 1 capsule in the evening. [facility] PROMETHAZIN E 12.5 mg tablet 03-27 00:00: 00 05-22 00:00 :00 No [id number] TAKE 2 TABLETS BY MOUTH EVERY 6 HOURS NEEDED FOR VERTIGO [facility] glyBURIDE 5 mg tablet 01-16 00:00: 00 10-26 00:00 :00 No [id number] TAKE 1 TABLET BY MOUTH TWICE DAILY WITH MEALS (NEEDS FOLLOW UP VISIT FOR FURTHER REFILLS) [facility] escitalopra m oxalate (LEXAPRO) 20 mg tablet 01-16 00:00: 00 10-03 00:00 :00 No [id number] 20mg Take 1 tablet by mouth daily. [facility] atorvastati n 20 mg tablet 01-16 00:00: 00 09-21 00:00 :00 No [id number] 20mg Take 1 tablet by mouth at bedtime. [facility] empaglifloz in (JARDIANCE) 25 mg Tab 01-16 00:00: 00 08-16 00:00 :00 No [id number] 25mg Take 1 tablet by mouth every morning. [facility] NUVARING (NUVARING) 0.12-0.015 mg/24 hr vaginal insert 01-16 00:00: 00 07-04 00:00 :00 No [id number] 1{each} Insert 1 Each into vagina once every month. Insert vaginally and leave in place for 3 consecutiv e weeks, then remove for 1 week. [facility] MELOXICAM 15 mg tablet 5-25 00:00: 00 05-16 00:00 :00 No [id number] Take 1 tablet by mouth once daily [facility] GLYBURIDE 5 mg tablet 5-25 00:00: 00 01-16 00:00 :00 No [id number] TAKE 1 TABLET BY MOUTH TWICE DAILY WITH MEALS (NEEDS FOLLOW UP VISIT FOR FURTHER REFILLS) [facility] HYDROXYZINE 25 mg tablet 5-25 00:00: 00 01-11 00:00 :00 No [id number] TAKE 1 TABLET BY MOUTH EVERY 8 HOURS NEEDED FOR ANXIETY [facility] semaglutide (OZEMPIC) 1 mg/dose (2 mg/1.5 mL) PnIj 4-19 00:00: 00 01-16 00:00 :00 No [id number] 1mg inject 1 mg under the skin weekly. [facility] tiZANidine 4 mg tablet 4-12 00:00: 00 05-16 00:00 :00 No 4mg Take 1 tablet by mouth 3 (three) times daily as needed (muscle spasm). [facility] oxyCODONE 5 mg immediate release tablet 4-12 00:00: 00 04-18 00:00 :00 No [id number] 5mg Take 1 tablet by mouth every 6 (six) hours as needed for Pain (scale 7-10). Indication s: acute pain [facility] PROMETHAZIN E 12.5 mg tablet 3-14 00:00: 00 01-16 00:00 :00 No [id number] TAKE 2 TABLETS BY MOUTH EVERY 6 HOURS NEEDED FOR VERTIGO [facility] ONDANSETRON 4 mg disintegrat ing tablet 2-15 00:00: 00 04-18 00:00 :00 No [id number] DISSOLVE 1 TABLET IN MOUTH EVERY 8 HOURS NEEDED FOR NAUSEA AND VOMITING FOR UP TO 4 DAYS [facility] insulin NPH (NOVOLIN N NPH U-100 INSULIN) 100 unit/mL injection 09-06 00:00: 00 04-18 00:00 :00 No [id number] INJECT 20 UNITS SUBCUTANEO USLY ONCE DAILY WITH BREAKFAST [facility] escitalopra m oxalate (LEXAPRO) 20 mg tablet 09-06 00:00: 00 01-16 00:00 :00 No [id number] 20mg Take 1 tablet by mouth daily. [facility] NOVOLIN R REGULAR U-100 INSULN 100 unit/mL solution 09-02 00:00: 00 04-18 00:00 :00 No [id number] INJECT 15 UNITS SUBCUTANEO USLY THREE TIMES DAILY BEFORE MEAL(S) [facility] MONTELUKAST 10 mg tablet 08-15 00:00: 00 07-17 00:00 :00 No [id number] Take 1 tablet by mouth once daily [facility] NUVARING (NUVARING) 0.12-0.015 mg/24 hr vaginal insert 2020-08 00:00: 00 01-16 00:00 :00 No [id number] 1{each} Insert 1 Each into vagina once every month. Insert vaginally and leave in place for 3 consecutiv e weeks, then remove for 1 week. [facility] metformin ER 500 mg 24 hr tablet 2020-08 00:00: 00 01-16 00:00 :00 No [id number] TAKE 2 TABLETS BY MOUTH ONCE DAILY IN THE MORNING AND 3 ONCE DAILY IN THE EVENING. Needs follow up visit for further refills [facility] atorvastati n 20 mg tablet 2020-08 00:00: 00 01-16 00:00 :00 No [id number] 20mg Take 1 tablet by mouth at bedtime. [facility] Guaifenesin 200 mg/5 mL Liqd 2020-08 00:00: 00 07-17 00:00 :00 No [id number] 5 ml po q 6 h prn cough [facility] mupirocin 2 % ointment 2020-08 0- 00:00: 07-17 00:00 :00 No [id number] Apply to area(s) 3 (three) times daily. [facility] empaglifloz in (JARDIANCE) 9-13 00:00: 00 01-16 00:00 :00 No [id number] 10mg Take 1 tablet by mouth daily. [facility] albuterol 90 mcg/actuati on inhaler 02-16 00:00: 00 11-29 00:00 :00 No [id number] 2{puff} Inhale 2 Puffs every 6 (six) hours as needed for Wheezing or Shortness of Breath. [facility] hydrOXYzine 25 mg tablet - 00:00: 00 06-02 00:00 :00 No [id number] 25mg Take 1 tablet by mouth every 6 (six) hours. TAKE 1-2 TABS PO Q6 HOURS PRN FOR ANXIETY [facility] metformin ER 500 mg 24 hr tablet 01-04 00:00: 00 06-27 00:00 :00 No [id number] TAKE 2 TABLETS BY MOUTH ONCE DAILY IN THE MORNING AND 3 ONCE DAILY IN THE EVENING. Needs follow up visit for further refills [facility] atorvastati n 20 mg tablet 01-04 00:00: 00 06-27 00:00 :00 No [id number] 20mg Take 1 tablet by mouth at bedtime. [facility] ondansetron (ZOFRAN ODT) 4 mg disintegrat ing tablet 12-30 00:00: 09-27 00:00 :00 No [id number] 4mg Take 1 tablet by mouth every 8 (eight) hours as needed for Nausea and Vomiting (N/V) for up to 4 days. [facility] hydrocortis one-pramovi ne rectal foam 12-13 00:00: 00 07-17 00:00 :00 No [id number] 1{appli cator} Insert 1 Applicator into rectum 2 (two) times daily. [facility] insulin NPH (NOVOLIN N NPH U-100 INSULIN) 100 unit/mL injection 10-13 00:00: 00 09-06 00:00 :00 No [id number] INJECT 20 UNITS SUBCUTANEO USLY ONCE DAILY WITH BREAKFAST [facility] insulin regular human (NOVOLIN R REGULAR U-100 INSULN) 100 unit/mL injection 10-13 00:00: 00 09-02 00:00 :00 No [id number] 15U inject 15 Units under the skin 3 (three) times daily before meals. [facility] glyBURIDE 5 mg tablet 10-13 00:00: 00 06-27 00:00 :00 No [id number] 5mg Take 1 tablet by mouth 2 (two) times daily with meals. Needs follow up visit for further refills [facility] Insulin Syringe-Nee dle U-100 1 mL 31 gauge x 5/16 Syrg 2019-08 00:00: 00 07-17 00:00 :00 No Use as directed [facility] Insulin Syringe-Nee dle U-100 1 mL 31 gauge x 5/16 Syrg 2019-08 00:00: 00 07-17 00:00 :00 No Use as directed [facility] hydrocortis one (ANUSOL-HC) 25 mg suppository 2019-08 00:00: 00 06-14 05:59 :00 No [id number] 25mg Insert 1 Suppositor y into rectum 2 (two) times daily for 10 days. [facility] escitalopra m oxalate (LEXAPRO) 5 mg tablet 2019-08 00:00: 00 12-31 00:00 :00 No [id number] 5mg Take 1 tablet by mouth daily. [facility] metformin ER 500 mg 24 hr tablet 2019-08 00:00: 00 10-13 00:00 :00 No [id number] TAKE 2 TABLETS BY MOUTH ONCE DAILY IN THE MORNING AND 3 ONCE DAILY IN THE EVENING. Needs follow up visit for further refills [facility] glyBURIDE 5 mg tablet 2019-08 00:06-22 00:00 :00 No [id number] 5mg Take 1 tablet by mouth 2 (two) times daily with meals. Needs follow up visit for further refills [facility] insulin NPH (NOVOLIN N NPH U-100 INSULIN) 100 unit/mL injection 2019-08 00:00: 06-22 00:00 :00 No [id number] USE 10 UNITS UNDER THE SUBCUTANEO USLY DAILY WITH BREAKFAST [facility] insulin regular human (NOVOLIN R REGULAR U-100 INSULN) 100 unit/mL injection 2019-08 00:00: 06-22 00:00 :00 No [id number] INJECT 10 UNITS SUBCUTANEO USLY WITH BREAKFAST [facility] hydrOXYzine 25 mg tablet 2019-08 00:0006-22 00:00 :00 No [id number] 25mg Take 1 tablet by mouth every 6 (six) hours. TAKE 1-2 TABS PO Q6 HOURS PRN FOR ANXIETY [facility] ondansetron 8 mg disintegrat ing tablet 05-09 00:00: 07-13 00:00 :00 No [id number] 8mg Take 1 tablet by mouth every 8 (eight) hours as needed for Nausea and Vomiting (N/V). [facility] hydrocortis one 2.5 % rectal cream 05-09 00:00: 07-13 00:00 :00 No [id number] Insert into rectum 2 (two) times daily. [facility] diphenoxyla te-atropine 2.5-0.025 mg tablet 05-09 00:00: 07-13 00:00 :00 No [id number] 1{tbl} Take 1 tablet by mouth every 6 (six) hours as needed (diarrhea) . [facility] sulindac 200 mg tablet 2-04 00:00: 07-13 00:00 :00 No [id number] 200mg Take 1 tablet by mouth 2 (two) times daily. [facility] bromphenira mine-pseudo ephedrine-D M (BROMFED DM) 2-30-10 mg/5 mL syrup 1-07 00:00: 00 07-13 00:00 :00 No [id number] 5mL Take 5 mL by mouth 4 (four) times daily as needed for Congestion /Allergies or Cold symptoms. [facility] diclofenac 50 mg tablet 08-14 00:00: 00 07-13 00:00 :00 No [id number] 50mg Take 1 tablet by mouth 3 (three) times daily. [facility] proMETHazin e 25 mg tablet 2018-08 2 00:00: 07-13 00:00 :00 No [id number] 25mg Take 1 tablet by mouth every 6 (six) hours as needed for Nausea and Vomiting (N/V). [facility] albuterol 90 mcg/actuati on inhaler 2017-08 00:00: 00 07-13 00:00 :00 No 2{puff} Inhale 2 Puffs every 4 (four) hours as needed for Wheezing or Shortness of Breath. [facility] fluticasone 50 mcg/actuati on nasal spray 2017-08 00:00: 00 07-13 00:00 :00 No 1{spray } Use 1 [place] in each nostril daily. [facility] ibuprofen 800 mg tablet 2017-08 00:00: 00 07-13 00:00 :00 No 800mg Take 1 tablet by mouth every 6 (six) hours as needed for Pain (scale 4-6). [facility] Breast Pump Lisa 04-13 00:00: 00 07-13 00:00 :00 No Use as directed [facility] blood sugar diagnostic (ONETOUCH ULTRA TEST) strip 8-22 00:00: 00 07-13 00:00 :00 No Please, dispense test strips for checking FS x8 times per day [facility] Blood Pressure Monitor (BLOOD PRESSURE KIT) Kit 8-15 00:00: 00 07-13 00:00 :00 No [id number] Use as directed [facility] Lancets (ONETOUCH ULTRASOFT LANCETS) Misc 6 00:00: 00 07-13 00:00 :00 No Use as directed [facility] Immunizations Ordered Immunization Name Filled Immunization Name Date Status Comments Source Flu Injectable MDCK Pres-Free (FLUCELVAX) 2024-04-21 00:00:00 Completed [facility] Pneumococcal Polysaccharide, PPSV23 (PNEUMOVAX) 2023-06-06 00:00:00 Completed [facility] Influenza Virus Vaccine Quad IM, Preserv and ABX Free 6 MO-64 YRS (FLUCELVAX) 2023-06-06 00:00:00 Completed Pneumococcal Polysaccharide, PPSV23 (PNEUMOVAX) 2023-06-06 00:00:00 Completed [facility] Influenza Virus Vaccine Quad IM, Preserv and ABX Free 6 MO-64 YRS (FLUCELVAX) 2023-06-06 00:00:00 Completed Pneumococcal Polysaccharide, PPSV23 (PNEUMOVAX) 2023-06-06 00:00:00 Completed [facility] Influenza Virus Vaccine Quad IM, Preserv and ABX Free 6 MO-64 YRS (FLUCELVAX) 2023-06-06 00:00:00 Completed Influenza Virus Vaccine 2022-05-29 00:00:00 Completed [facility] Influenza Virus Vaccine Quad .5 mL IM 6+ MO 2022-05-29 00:00:00 Completed [facility] Influenza Virus Vaccine 2022-05-29 00:00:00 Completed [facility] Influenza Virus Vaccine Quad .5 mL IM 6+ MO 2022-05-29 00:00:00 Completed [facility] Influenza Virus Vaccine 2022-05-29 00:00:00 Completed [facility] Influenza Virus Vaccine Quad .5 mL IM 6+ MO 2022-05-29 00:00:00 Completed [facility] Influenza Virus Vaccine 2022-05-29 00:00:00 Completed [facility] Influenza Virus Vaccine Quad .5 mL IM 6+ MO 2022-05-29 00:00:00 Completed [facility] Influenza Virus Vaccine 2022-05-29 00:00:00 Completed [facility] Influenza Virus Vaccine Quad .5 mL IM 6+ MO 2022-05-29 00:00:00 Completed [facility] Influenza Virus Vaccine 2022-05-29 00:00:00 Completed [facility] Influenza Virus Vaccine Quad .5 mL IM 6+ MO 2022-05-29 00:00:00 Completed [facility] Influenza Virus Vaccine 2022-05-29 00:00:00 Completed [facility] Influenza Virus Vaccine Quad .5 mL IM 6+ MO 2022-05-29 00:00:00 Completed [facility] Influenza Virus Vaccine 2022-05-29 00:00:00 Completed [facility] Influenza Virus Vaccine Quad .5 mL IM 6+ MO 2022-05-29 00:00:00 Completed [facility] Influenza Virus Vaccine 2022-05-29 00:00:00 Completed [facility] Influenza Virus Vaccine Quad .5 mL IM 6+ MO 2022-05-29 00:00:00 Completed [facility] Influenza Virus Vaccine 2022-05-29 00:00:00 Completed [facility] Influenza Virus Vaccine Quad .5 mL IM 6+ MO 2022-05-29 00:00:00 Completed [facility] Influenza Virus Vaccine 2022-05-29 00:00:00 Completed [facility] Influenza Virus Vaccine Quad .5 mL IM 6+ MO 2022-05-29 00:00:00 Completed [facility] Influenza Virus Vaccine 2022-05-29 00:00:00 Completed [facility] Influenza Virus Vaccine Quad .5 mL IM 6+ MO 2022-05-29 00:00:00 Completed [facility] Influenza Virus Vaccine 2022-05-29 00:00:00 Completed [facility] Influenza Virus Vaccine Quad .5 mL IM 6+ MO 2022-05-29 00:00:00 Completed [facility] Influenza Virus Vaccine 2022-05-29 00:00:00 Completed [facility] Influenza Virus Vaccine Quad .5 mL IM 6+ MO 2022-05-29 00:00:00 Completed [facility] Influenza Virus Vaccine 2022-05-29 00:00:00 Completed [facility] Influenza Virus Vaccine Quad .5 mL IM 6+ MO 2022-05-29 00:00:00 Completed [facility] Influenza Virus Vaccine 2022-05-29 00:00:00 Completed [facility] Influenza Virus Vaccine Quad .5 mL IM 6+ MO 2022-05-29 00:00:00 Completed [facility] Influenza Virus Vaccine 2022-05-29 00:00:00 Completed [facility] Influenza Virus Vaccine Quad .5 mL IM 6+ MO 2022-05-29 00:00:00 Completed [facility] Influenza Virus Vaccine 2022-05-29 00:00:00 Completed [facility] Influenza Virus Vaccine Quad .5 mL IM 6+ MO 2022-05-29 00:00:00 Completed [facility] Influenza Virus Vaccine 2022-05-29 00:00:00 Completed [facility] Influenza Virus Vaccine Quad .5 mL IM 6+ MO 2022-05-29 00:00:00 Completed [facility] Influenza Virus Vaccine 2022-05-29 00:00:00 Completed [facility] Influenza Virus Vaccine Quad .5 mL IM 6+ MO 2022-05-29 00:00:00 Completed [facility] Influenza Virus Vaccine 2022-05-29 00:00:00 [facility] [facility] Vaccine Quad .5 mL IM 6+ MO 2022-05-29 00:00:00 Completed [facility] Influenza Virus Vaccine 2022-05-29 00:00:00 Completed [facility] Influenza Virus Vaccine Quad .5 mL IM 6+ MO 2022-05-29 00:00:00 Completed [facility] Influenza Virus Vaccine 2022-05-29 00:00:00 Completed [facility] Influenza Virus Vaccine Quad .5 mL IM 6+ MO 2022-05-29 00:00:00 Completed [facility] Influenza Virus Vaccine 2022-05-29 00:00:00 Completed [facility] Influenza Virus Vaccine Quad .5 mL IM 6+ MO 2022-05-29 00:00:00 Completed [facility] Influenza Virus Vaccine 2022-05-29 00:00:00 Completed [facility] Influenza Virus Vaccine Quad .5 mL IM 6+ MO 2022-05-29 00:00:00 Completed [facility] Influenza Virus Vaccine 2022-05-29 00:00:00 Completed [facility] Influenza Virus Vaccine Quad .5 mL IM 6+ MO 2022-05-29 00:00:00 Completed [facility] Influenza Virus Vaccine 2022-05-29 00:00:00 Completed [facility] Influenza Virus Vaccine Quad .5 mL IM 6+ MO 2022-05-29 00:00:00 Completed [facility] Influenza Virus Vaccine 2022-05-29 00:00:00 Completed [facility] Influenza Virus Vaccine Quad .5 mL IM 6+ MO 2022-05-29 00:00:00 Completed [facility] Influenza Virus Vaccine 2022-05-29 00:00:00 Completed [facility] Influenza Virus Vaccine Quad .5 mL IM 6+ MO 2022-05-29 00:00:00 Completed [facility] Influenza Virus Vaccine 2022-05-29 00:00:00 Completed [facility] Influenza Virus Vaccine Quad .5 mL IM 6+ MO 2022-05-29 00:00:00 Completed [facility] Influenza Virus Vaccine 2022-05-29 00:00:00 Completed [facility] Influenza Virus Vaccine Quad .5 mL IM 6+ MO 2022-05-29 00:00:00 Completed [facility] Influenza Virus Vaccine 2022-05-29 00:00:00 Completed [facility] Influenza Virus Vaccine Quad .5 mL IM 6+ MO 2022-05-29 00:00:00 Completed [facility] Influenza Virus Vaccine 2022-05-29 00:00:00 Completed [facility] Influenza Virus Vaccine Quad .5 mL IM 6+ MO 2022-05-29 00:00:00 Completed [facility] Influenza Virus Vaccine 2022-05-29 00:00:00 Completed [facility] Influenza Virus Vaccine Quad .5 mL IM 6+ MO 2022-05-29 00:00:00 Completed [facility] Influenza Virus Vaccine 2022-05-29 00:00:00 Completed [facility] Influenza Virus Vaccine Quad .5 mL IM 6+ MO 2022-05-29 00:00:00 Completed [facility] Influenza Virus Vaccine 2022-05-29 00:00:00 Completed [facility] Influenza Virus Vaccine Quad .5 mL IM 6+ MO 2022-05-29 00:00:00 Completed [facility] Influenza Virus Vaccine 2022-05-29 00:00:00 Completed [facility] Influenza Virus Vaccine Quad .5 mL IM 6+ MO 2022-05-29 00:00:00 Completed [facility] Influenza Virus Vaccine 2022-05-29 00:00:00 Completed [facility] Influenza Virus Vaccine Quad .5 mL IM 6+ MO 2022-05-29 00:00:00 Completed [facility] Influenza Virus Vaccine 2022-05-29 00:00:00 Completed [facility] Influenza Virus Vaccine Quad .5 mL IM 6+ MO 2022-05-29 00:00:00 Completed [facility] Influenza Virus Vaccine 2022-05-29 00:00:00 Completed [facility] Influenza Virus Vaccine Quad .5 mL IM 6+ MO 2022-05-29 00:00:00 Completed [facility] Influenza Virus Vaccine 2022-05-29 00:00:00 Completed [facility] Influenza Virus Vaccine Quad .5 mL IM 6+ MO 2022-05-29 00:00:00 Completed [facility] Influenza Virus Vaccine 2022-05-29 00:00:00 Completed [facility] Influenza Virus Vaccine Quad .5 mL IM 6+ MO 2022-05-29 00:00:00 Completed [facility] Influenza Virus Vaccine 2022-05-29 00:00:00 Completed [facility] Influenza Virus Vaccine Quad .5 mL IM 6+ MO 2022-05-29 00:00:00 Completed [facility] Influenza Virus Vaccine 2022-05-29 00:00:00 Completed [facility] Influenza Virus Vaccine Quad .5 mL IM 6+ MO 2022-05-29 00:00:00 Completed [facility] Influenza Virus Vaccine 2022-05-29 00:00:00 Completed [facility] Influenza Virus Vaccine Quad .5 mL IM 6+ MO 2022-05-29 00:00:00 Completed [facility] Influenza Virus Vaccine 2022-05-29 00:00:00 Completed [facility] Influenza Virus Vaccine Quad .5 mL IM 6+ MO 2022-05-29 00:00:00 Completed [facility] Influenza Virus Vaccine 2022-05-29 00:00:00 Completed [facility] Influenza Virus Vaccine Quad .5 mL IM 6+ MO 2022-05-29 00:00:00 Completed [facility] Influenza Virus Vaccine 2022-05-29 00:00:00 Completed [facility] Influenza Virus Vaccine Quad .5 mL IM 6+ MO 2022-05-29 00:00:00 Completed [facility] Influenza Virus Vaccine 2022-05-29 00:00:00 Completed [facility] Influenza Virus Vaccine Quad .5 mL IM 6+ MO 2022-05-29 00:00:00 Completed [facility] Influenza Virus Vaccine 2022-05-29 00:00:00 Completed [facility] Influenza Virus Vaccine Quad .5 mL IM 6+ MO 2022-05-29 00:00:00 Completed [facility] Influenza Virus Vaccine 2022-05-29 00:00:00 Completed [facility] Influenza Virus Vaccine Quad .5 mL IM 6+ MO 2022-05-29 00:00:00 Completed [facility] Influenza Virus Vaccine 2022-05-29 00:00:00 Completed [facility] Influenza Virus Vaccine Quad .5 mL IM 6+ MO 2022-05-29 00:00:00 Completed [facility] Influenza Virus Vaccine 2022-05-29 00:00:00 Completed [facility] Influenza Virus Vaccine Quad .5 mL IM 6+ MO 2022-05-29 00:00:00 Completed [facility] Influenza Virus Vaccine 2022-05-29 00:00:00 Completed [facility] Influenza Virus Vaccine Quad .5 mL IM 6+ MO 2022-05-29 00:00:00 Completed [facility] Influenza Virus Vaccine 2022-05-29 00:00:00 Completed [facility] Influenza Virus Vaccine Quad .5 mL IM 6+ MO 2022-05-29 00:00:00 Completed [facility] Influenza Virus Vaccine 2022-05-29 00:00:00 Completed [facility] Influenza Virus Vaccine Quad .5 mL IM 6+ MO 2022-05-29 00:00:00 Completed [facility] Influenza Virus Vaccine 2022-05-29 00:00:00 Completed [facility] Influenza Virus Vaccine Quad .5 mL IM 6+ MO 2022-05-29 00:00:00 Completed [facility] Influenza Virus Vaccine 2022-05-29 00:00:00 Completed [facility] Influenza Virus Vaccine Quad .5 mL IM 6+ MO 2022-05-29 00:00:00 Completed [facility] Influenza Virus Vaccine 2022-05-29 00:00:00 Completed [facility] Influenza Virus Vaccine Quad .5 mL IM 6+ MO 2022-05-29 00:00:00 Completed [facility] Influenza Virus Vaccine 2022-05-29 00:00:00 Completed [facility] Influenza Virus Vaccine Quad .5 mL IM 6+ MO 2022-05-29 00:00:00 Completed [facility] Influenza Virus Vaccine 2022-05-29 00:00:00 Completed [facility] Influenza Virus Vaccine Quad .5 mL IM 6+ MO 2022-05-29 00:00:00 Completed [facility] Influenza Virus Vaccine 2022-05-29 00:00:00 Completed [facility] Influenza Virus Vaccine Quad .5 mL IM 6+ MO 2022-05-29 00:00:00 Completed [facility] Influenza Virus Vaccine 2022-05-29 00:00:00 Completed [facility] Influenza Virus Vaccine Quad .5 mL IM 6+ MO 2022-05-29 00:00:00 Completed [facility] Influenza Virus Vaccine 2022-05-29 00:00:00 Completed [facility] Influenza Virus Vaccine Quad .5 mL IM 6+ MO 2022-05-29 00:00:00 Completed [facility] Influenza Virus Vaccine 2022-05-29 00:00:00 Completed [facility] Influenza Virus Vaccine Quad .5 mL IM 6+ MO 2022-05-29 00:00:00 Completed [facility] Influenza Virus Vaccine 2022-05-29 00:00:00 Completed [facility] Influenza Virus Vaccine Quad .5 mL IM 6+ MO 2022-05-29 00:00:00 Completed [facility] Influenza Virus Vaccine 2022-05-29 00:00:00 Completed [facility] Influenza Virus Vaccine Quad .5 mL IM 6+ MO 2022-05-29 00:00:00 Completed [facility] Influenza Virus Vaccine 2022-05-29 00:00:00 Completed [facility] Influenza Virus Vaccine Quad .5 mL IM 6+ MO 2022-05-29 00:00:00 Completed [facility] Influenza Virus Vaccine 2022-05-29 00:00:00 Completed [facility] Influenza Virus Vaccine Quad .5 mL IM 6+ MO 2022-05-29 00:00:00 Completed [facility] Influenza Virus Vaccine 2022-05-29 00:00:00 Completed [facility] Influenza Virus Vaccine Quad .5 mL IM 6+ MO 2022-05-29 00:00:00 Completed [facility] Influenza Virus Vaccine 2022-05-29 00:00:00 Completed [facility] Influenza Virus Vaccine Quad .5 mL IM 6+ MO 2022-05-29 00:00:00 Completed [facility] Influenza Virus Vaccine 2022-05-29 00:00:00 Completed [facility] Influenza Virus Vaccine Quad .5 mL IM 6+ MO 2022-05-29 00:00:00 Completed [facility] Influenza Virus Vaccine 2022-05-29 00:00:00 Completed [facility] Influenza Virus Vaccine Quad .5 mL IM 6+ MO 2022-05-29 00:00:00 Completed [facility] Influenza Virus Vaccine 2022-05-29 00:00:00 Completed [facility] Influenza Virus Vaccine Quad .5 mL IM 6+ MO 2022-05-29 00:00:00 Completed [facility] Influenza Virus Vaccine 2022-05-29 00:00:00 Completed [facility] Influenza Virus Vaccine Quad .5 mL IM 6+ MO 2022-05-29 00:00:00 Completed [facility] Influenza Virus Vaccine 2022-05-29 00:00:00 Completed [facility] Influenza Virus Vaccine Quad .5 mL IM 6+ MO 2022-05-29 00:00:00 Completed [facility] Influenza Virus Vaccine 2022-05-29 00:00:00 Completed [facility] Influenza Virus Vaccine Quad .5 mL IM 6+ MO 2022-05-29 00:00:00 Completed [facility] Influenza Virus Vaccine 2022-05-29 00:00:00 Completed [facility] Influenza Virus Vaccine Quad .5 mL IM 6+ MO 2022-05-29 00:00:00 Completed [facility] Influenza Virus Vaccine 2022-05-29 00:00:00 Completed [facility] Influenza Virus Vaccine Quad .5 mL IM 6+ MO 2022-05-29 00:00:00 Completed [facility] Influenza Virus Vaccine 2022-05-29 00:00:00 Completed [facility] Influenza Virus Vaccine Quad .5 mL IM 6+ MO 2022-05-29 00:00:00 Completed [facility] Influenza Virus Vaccine 2022-05-29 00:00:00 Completed [facility] Influenza Virus Vaccine Quad .5 mL IM 6+ MO 2022-05-29 00:00:00 Completed [facility] Influenza Virus Vaccine 2022-05-29 00:00:00 Completed [facility] Influenza Virus Vaccine Quad .5 mL IM 6+ MO 2022-05-29 00:00:00 Completed [facility] Influenza Virus Vaccine 2022-05-29 00:00:00 Completed [facility] Influenza Virus Vaccine Quad .5 mL IM 6+ MO 2022-05-29 00:00:00 Completed [facility] Influenza Virus Vaccine 2022-05-29 00:00:00 Completed [facility] Influenza Virus Vaccine Quad .5 mL IM 6+ MO 2022-05-29 00:00:00 Completed [facility] Influenza Virus Vaccine 2022-05-29 00:00:00 Completed [facility] Influenza Virus Vaccine Quad .5 mL IM 6+ MO 2022-05-29 00:00:00 Completed [facility] Influenza Virus Vaccine 2022-05-29 00:00:00 Completed [facility] Influenza Virus Vaccine Quad .5 mL IM 6+ MO 2022-05-29 00:00:00 Completed [facility] Influenza Virus Vaccine 2022-05-29 00:00:00 Completed [facility] Influenza Virus Vaccine Quad .5 mL IM 6+ MO 2022-05-29 00:00:00 Completed [facility] Influenza Virus Vaccine 2022-05-29 00:00:00 Completed [facility] Influenza Virus Vaccine Quad .5 mL IM 6+ MO 2022-05-29 00:00:00 Completed [facility] Influenza Virus Vaccine 2022-05-29 00:00:00 Completed [facility] Influenza Virus Vaccine Quad .5 mL IM 6+ MO (FLUZONE/FLULAVAL/F LUARIX) 2022-05-29 00:00:00 Completed [facility] Influenza Virus Vaccine 2022-05-29 00:00:00 Completed [facility] Influenza Virus Vaccine Quad .5 mL IM 6+ MO (FLUZONE/FLULAVAL/F LUARIX) 2022-05-29 00:00:00 Completed [facility] Influenza Virus Vaccine 2022-05-29 00:00:00 Completed Influenza [...] mL IM 6+ MO 2021-07-01 00:00:00 Completed [facility] Influenza Virus Vaccine Quad .5 mL IM 6+ MO 2021-07-01 00:00:00 Completed [facility] Influenza Virus Vaccine Quad .5 mL IM 6+ MO 2021-07-01 00:00:00 Completed [facility] Influenza Virus Vaccine Quad .5 mL IM 6+ MO 2021-07-01 00:00:00 Completed [facility] Influenza Virus Vaccine Quad .5 mL IM 6+ MO 2021-07-01 00:00:00 Completed [facility] Influenza Virus Vaccine Quad .5 mL IM 6+ MO 2021-07-01 00:00:00 Completed [facility] Influenza Virus Vaccine Quad .5 mL IM 6+ MO 2021-07-01 00:00:00 Completed [facility] Influenza Virus Vaccine Quad .5 mL IM 6+ MO 2021-07-01 00:00:00 Completed [facility] Influenza Virus Vaccine Quad .5 mL IM 6+ MO 2021-07-01 00:00:00 Completed [facility] Influenza Virus Vaccine Quad .5 mL IM 6+ MO 2021-07-01 00:00:00 Completed [facility] Influenza Virus Vaccine Quad .5 mL IM 6+ MO 2021-07-01 00:00:00 Completed [facility] Influenza Virus Vaccine Quad .5 mL IM 6+ MO 2021-07-01 00:00:00 Completed [facility] Influenza Virus Vaccine Quad .5 mL IM 6+ MO 2021-07-01 00:00:00 Completed [facility] Influenza Virus Vaccine Quad .5 mL IM 6+ MO 2021-07-01 00:00:00 Completed [facility] Influenza Virus Vaccine Quad .5 mL IM 6+ MO 2021-07-01 00:00:00 Completed [facility] Influenza Virus Vaccine Quad .5 mL IM 6+ MO 2021-07-01 00:00:00 Completed [facility] Influenza Virus Vaccine Quad .5 mL IM 6+ MO 2021-07-01 00:00:00 Completed [facility] Influenza Virus Vaccine Quad .5 mL IM 6+ MO 2021-07-01 00:00:00 Completed [facility] Influenza Virus Vaccine Quad .5 mL IM 6+ MO 2021-07-01 00:00:00 Completed [facility] Influenza Virus Vaccine Quad .5 mL IM 6+ MO 2021-07-01 00:00:00 Completed [facility] Influenza Virus Vaccine Quad .5 mL IM 6+ MO 2021-07-01 00:00:00 Completed [facility] Influenza Virus Vaccine Quad .5 mL IM 6+ MO 2021-07-01 00:00:00 Completed [facility] Influenza Virus Vaccine Quad .5 mL IM 6+ MO 2021-07-01 00:00:00 Completed [facility] Influenza Virus Vaccine Quad .5 mL IM 6+ MO 2021-07-01 00:00:00 Completed [facility] Influenza Virus Vaccine Quad .5 mL IM 6+ MO 2021-07-01 00:00:00 Completed [facility] Influenza Virus Vaccine Quad .5 mL IM 6+ MO 2021-07-01 00:00:00 Completed [facility] Influenza Virus Vaccine Quad .5 mL IM 6+ MO 2021-07-01 00:00:00 Completed [facility] Influenza Virus Vaccine Quad .5 mL IM 6+ MO 2021-07-01 00:00:00 Completed [facility] Influenza Virus Vaccine Quad .5 mL IM 6+ MO 2021-07-01 00:00:00 Completed [facility] Influenza Virus Vaccine Quad .5 mL IM 6+ MO 2021-07-01 00:00:00 Completed [facility] Influenza Virus Vaccine Quad .5 mL IM 6+ MO 2021-07-01 00:00:00 Completed [facility] Influenza Virus Vaccine Quad .5 mL IM 6+ MO 2021-07-01 00:00:00 Completed [facility] Influenza Virus Vaccine Quad .5 mL IM 6+ MO 2021-07-01 00:00:00 Completed [facility] Influenza Virus Vaccine Quad .5 mL IM 6+ MO 2021-07-01 00:00:00 Completed [facility] Influenza Virus Vaccine Quad .5 mL IM 6+ MO 2021-07-01 00:00:00 Completed [facility] Influenza Virus Vaccine Quad .5 mL IM 6+ MO 2021-07-01 00:00:00 Completed [facility] Influenza Virus Vaccine Quad .5 mL IM 6+ MO 2021-07-01 00:00:00 Completed [facility] Influenza Virus Vaccine Quad .5 mL IM 6+ MO 2021-07-01 00:00:00 Completed [facility] Influenza Virus Vaccine Quad .5 mL IM 6+ MO 2021-07-01 00:00:00 Completed [facility] Influenza Virus Vaccine Quad .5 mL IM 6+ MO 2021-07-01 00:00:00 Completed [facility] Influenza Virus Vaccine Quad .5 mL IM 6+ MO 2021-07-01 00:00:00 Completed [facility] Influenza Virus Vaccine Quad .5 mL IM 6+ MO 2021-07-01 00:00:00 Completed [facility] Influenza Virus Vaccine Quad .5 mL IM 6+ MO 2021-07-01 00:00:00 Completed [facility] Influenza Virus Vaccine Quad .5 mL IM 6+ MO 2021-07-01 00:00:00 Completed [facility] Influenza Virus Vaccine Quad .5 mL IM 6+ MO 2021-07-01 00:00:00 Completed [facility] Influenza Virus Vaccine Quad .5 mL IM 6+ MO 2021-07-01 00:00:00 Completed [facility] Influenza Virus Vaccine Quad .5 mL IM 6+ MO 2021-07-01 00:00:00 Completed [facility] Influenza Virus Vaccine Quad .5 mL IM 6+ MO 2021-07-01 00:00:00 Completed [facility] Influenza Virus Vaccine Quad .5 mL IM 6+ MO 2021-07-01 00:00:00 Completed [facility] Influenza Virus Vaccine Quad .5 mL IM 6+ MO 2021-07-01 00:00:00 Completed [facility] Influenza Virus Vaccine Quad .5 mL IM 6+ MO 2021-07-01 00:00:00 Completed [facility] Influenza Virus Vaccine Quad .5 mL IM 6+ MO 2021-07-01 00:00:00 Completed [facility] Influenza Virus Vaccine Quad .5 mL IM 6+ MO 2021-07-01 00:00:00 Completed [facility] Influenza Virus Vaccine Quad .5 mL IM 6+ MO 2021-07-01 00:00:00 Completed [facility] Influenza Virus Vaccine Quad .5 mL IM 6+ MO 2021-07-01 00:00:00 Completed [facility] Influenza Virus Vaccine Quad .5 mL IM 6+ MO 2021-07-01 00:00:00 Completed [facility] Influenza Virus Vaccine Quad .5 mL IM 6+ MO 2021-07-01 00:00:00 Completed [facility] Influenza Virus Vaccine Quad .5 mL IM 6+ MO 2021-07-01 00:00:00 Completed [facility] Influenza Virus Vaccine Quad .5 mL IM 6+ MO 2021-07-01 00:00:00 Completed [facility] Influenza Virus Vaccine Quad .5 mL IM 6+ MO 2021-07-01 00:00:00 Completed [facility] Influenza Virus Vaccine Quad .5 mL IM 6+ MO 2021-07-01 00:00:00 Completed [facility] Influenza Virus Vaccine Quad .5 mL IM 6+ MO 2021-07-01 00:00:00 Completed [facility] Influenza Virus Vaccine Quad .5 mL IM 6+ MO 2021-07-01 00:00:00 Completed [facility] Influenza Virus Vaccine Quad .5 mL IM 6+ MO 2021-07-01 00:00:00 Completed [facility] Influenza Virus Vaccine Quad .5 mL IM 6+ MO 2021-07-01 00:00:00 Completed [facility] Influenza Virus Vaccine Quad .5 mL IM 6+ MO 2021-07-01 00:00:00 Completed [facility] Influenza Virus Vaccine Quad .5 mL IM 6+ MO 2021-07-01 00:00:00 Completed [facility] Influenza Virus Vaccine Quad .5 mL IM 6+ MO 2021-07-01 00:00:00 Completed [facility] Influenza Virus Vaccine Quad .5 mL IM 6+ MO 2021-07-01 00:00:00 Completed [facility] Influenza Virus Vaccine Quad .5 mL IM 6+ MO 2021-07-01 00:00:00 Completed [facility] Influenza Virus Vaccine Quad .5 mL IM 6+ MO 2021-07-01 00:00:00 Completed [facility] Influenza Virus Vaccine Quad .5 mL IM 6+ MO 2021-07-01 00:00:00 Completed [facility] Influenza Virus Vaccine Quad .5 mL IM 6+ MO 2021-07-01 00:00:00 Completed [facility] Influenza Virus Vaccine Quad .5 mL IM 6+ MO 2021-07-01 00:00:00 Completed [facility] Influenza Virus Vaccine Quad .5 mL IM 6+ MO 2021-07-01 00:00:00 Completed [facility] Influenza Virus Vaccine Quad .5 mL IM 6+ MO 2021-07-01 00:00:00 Completed [facility] Influenza Virus Vaccine Quad .5 mL IM 6+ MO 2021-07-01 00:00:00 Completed [facility] Influenza Virus Vaccine Quad .5 mL IM 6+ MO 2021-07-01 00:00:00 Completed [facility] Influenza Virus Vaccine Quad .5 mL IM 6+ MO 2021-07-01 00:00:00 Completed [facility] Influenza Virus Vaccine Quad .5 mL IM 6+ MO 2021-07-01 00:00:00 Completed [facility] Influenza Virus Vaccine Quad .5 mL IM 6+ MO 2021-07-01 00:00:00 Completed [facility] Influenza Virus Vaccine Quad .5 mL IM 6+ MO 2021-07-01 00:00:00 Completed [facility] Influenza Virus Vaccine Quad .5 mL IM 6+ MO 2021-07-01 00:00:00 Completed [facility] Influenza Virus Vaccine Quad .5 mL IM 6+ MO 2021-07-01 00:00:00 Completed [facility] Influenza Virus Vaccine Quad .5 mL IM 6+ MO 2021-07-01 00:00:00 Completed [facility] Influenza Virus Vaccine Quad .5 mL IM 6+ MO 2021-07-01 00:00:00 Completed [facility] Influenza Virus Vaccine Quad .5 mL IM 6+ MO 2021-07-01 00:00:00 Completed [facility] Influenza Virus Vaccine Quad .5 mL IM 6+ MO 2021-07-01 00:00:00 Completed [facility] Influenza Virus Vaccine Quad .5 mL IM 6+ MO 2021-07-01 00:00:00 Completed [facility] Influenza Virus Vaccine Quad .5 mL IM 6+ MO 2021-07-01 00:00:00 Completed [facility] Influenza Virus Vaccine Quad .5 mL IM 6+ MO 2021-07-01 00:00:00 Completed [facility] Influenza Virus Vaccine Quad .5 mL IM 6+ MO 2021-07-01 00:00:00 Completed [facility] Influenza Virus Vaccine Quad .5 mL IM 6+ MO 2021-07-01 00:00:00 Completed [facility] Influenza Virus Vaccine Quad .5 mL IM 6+ MO 2021-07-01 00:00:00 Completed [facility] Influenza Virus Vaccine Quad .5 mL IM 6+ MO 2021-07-01 00:00:00 Completed [facility] Influenza Virus Vaccine Quad .5 mL IM 6+ MO 2021-07-01 00:00:00 Completed [facility] Influenza Virus Vaccine Quad .5 mL IM 6+ MO (FLUZONE/FLULAVAL/F LUARIX) 2021-07-01 00:00:00 Completed [facility] Influenza Virus Vaccine Quad .5 mL IM 6+ MO (FLUZONE/FLULAVAL/F LUARIX) 2021-07-01 00:00:00 Completed [facility] Influenza Virus Vaccine Quad .5 mL IM 6+ MO (FLUZONE/FLULAVAL/F LUARIX) 2021-07-01 00:00:00 Completed [facility] Influenza Virus Vaccine Quad .5 mL IM 6+ MO (FLUZONE/FLULAVAL/F LUARIX) 2021-07-01 00:00:00 Completed [facility] Influenza Virus Vaccine Quad .5 mL IM 6+ MO (FLUZONE/FLULAVAL/F LUARIX) 2021-07-01 00:00:00 Completed [facility] Influenza Virus Vaccine Quad .5 mL IM 6+ MO 2021-07-01 00:00:00 Completed [facility] Influenza Virus Vaccine Quad .5 mL IM 6+ MO 2021-07-01 00:00:00 Completed [facility] Influenza Virus Vaccine Quad .5 mL IM 6+ MO 2021-07-01 00:00:00 Completed [facility] Influenza Virus Vaccine Quad .5 mL IM 6+ MO 2021-07-01 00:00:00 Completed [facility] Influenza Virus Vaccine Quad .5 mL IM 6+ MO 2021-07-01 00:00:00 Completed [facility] Influenza Virus Vaccine Quad .5 mL IM 6+ MO 2021-07-01 00:00:00 Completed [facility] Influenza Virus Vaccine Quad .5 mL IM 6+ MO 2021-07-01 00:00:00 Completed [facility] Influenza Virus Vaccine Quad .5 mL IM 6+ MO 2021-07-01 00:00:00 Completed [facility] Influenza Virus Vaccine Quad .5 mL IM 6+ MO 2021-07-01 00:00:00 Completed [facility] Influenza Virus Vaccine Quad .5 mL IM 6+ MO 2021-07-01 00:00:00 Completed [facility] Influenza Virus Vaccine Quad .5 mL IM 6+ MO 2021-07-01 00:00:00 Completed [facility] Influenza Virus Vaccine Quad .5 mL IM 6+ MO 2021-07-01 00:00:00 Completed [facility] Influenza Virus Vaccine Quad .5 mL IM 6+ MO 2021-07-01 00:00:00 Completed [facility] Influenza Virus Vaccine Quad .5 mL IM 6+ MO 2021-07-01 00:00:00 Completed [facility] Influenza Virus Vaccine Quad .5 mL IM 6+ MO 2021-07-01 00:00:00 Completed [facility] Influenza Virus Vaccine Quad .5 mL IM 6+ MO 2021-07-01 00:00:00 Completed [facility] Influenza Virus Vaccine Quad .5 mL IM 6+ MO 2021-07-01 00:00:00 Completed [facility] Influenza Virus Vaccine Quad .5 mL IM 6+ MO 2021-07-01 00:00:00 Completed [facility] Influenza Virus Vaccine Quad .5 mL IM 6+ MO 2021-07-01 00:00:00 Completed [facility] Influenza Virus Vaccine Quad .5 mL IM 6+ MO 2021-07-01 00:00:00 Completed [facility] Influenza Virus Vaccine Quad .5 mL IM 6+ MO 2021-07-01 00:00:00 Completed [facility] Influenza Virus Vaccine Quad .5 mL IM 6+ MO 2021-07-01 00:00:00 Completed [facility] Influenza Virus Vaccine Quad .5 mL IM 6+ MO 2021-07-01 00:00:00 Completed [facility] Influenza Virus Vaccine Quad .5 mL IM 6+ MO 2021-07-01 00:00:00 Completed [facility] Influenza Virus Vaccine Quad .5 mL IM 6+ MO 2021-07-01 00:00:00 Completed [facility] Influenza Virus Vaccine Quad .5 mL IM 6+ MO 2021-07-01 00:00:00 Completed [facility] Influenza Virus Vaccine Quad .5 mL IM 6+ MO 2021-07-01 00:00:00 Completed [facility] Influenza Virus Vaccine Quad .5 mL IM 6+ MO 2021-07-01 00:00:00 Completed [facility] Influenza Virus Vaccine Quad .5 mL IM 6+ MO 2021-07-01 00:00:00 Completed [facility] Influenza Virus Vaccine Quad .5 mL IM 6+ MO 2021-07-01 00:00:00 Completed [facility] Influenza Virus Vaccine Quad .5 mL IM 6+ MO 2021-07-01 00:00:00 Completed [facility] Influenza Virus Vaccine Quad .5 mL IM 6+ MO 2021-07-01 00:00:00 Completed [facility] Influenza Virus Vaccine Quad .5 mL IM 6+ MO 2021-07-01 00:00:00 Completed [facility] Influenza Virus Vaccine Quad .5 mL IM 6+ MO 2021-07-01 00:00:00 Completed [facility] Influenza Virus Vaccine Quad .5 mL IM 6+ MO 2021-07-01 00:00:00 Completed [facility] Influenza Virus Vaccine Quad .5 mL IM 6+ MO 2021-07-01 00:00:00 Completed [facility] Influenza Virus Vaccine Quad .5 mL IM 6+ MO 2021-07-01 00:00:00 Completed [facility] Pneumococcal Polysaccharide, PPSV23 (PNEUMOVAX) 2020-07-13 00:00:00 Completed [facility] Pneumococcal Polysaccharide, PPSV23 (PNEUMOVAX) 2020-07-13 00:00:00 Completed [facility] Pneumococcal Polysaccharide, PPSV23 (PNEUMOVAX) 2020-07-13 00:00:00 Completed [facility] Pneumococcal Polysaccharide, PPSV23 (PNEUMOVAX) 2020-07-13 00:00:00 Completed [facility] Pneumococcal Polysaccharide, PPSV23 (PNEUMOVAX) 2020-07-13 00:00:00 Completed [facility] Pneumococcal Polysaccharide, PPSV23 (PNEUMOVAX) 2020-07-13 00:00:00 Completed [facility] Pneumococcal Polysaccharide, PPSV23 (PNEUMOVAX) 2020-07-13 00:00:00 Completed [facility] Pneumococcal Polysaccharide, PPSV23 (PNEUMOVAX) 2020-07-13 00:00:00 Completed [facility] Pneumococcal Polysaccharide, PPSV23 (PNEUMOVAX) 2020-07-13 00:00:00 Completed [facility] Pneumococcal Polysaccharide, PPSV23 (PNEUMOVAX) 2020-07-13 00:00:00 Completed [facility] Pneumococcal Polysaccharide, PPSV23 (PNEUMOVAX) 2020-07-13 00:00:00 Completed [facility] Pneumococcal Polysaccharide, PPSV23 (PNEUMOVAX) 2020-07-13 00:00:00 Completed [facility] Pneumococcal Polysaccharide, PPSV23 (PNEUMOVAX) 2020-07-13 00:00:00 Completed [facility] Pneumococcal Polysaccharide, PPSV23 (PNEUMOVAX) 2020-07-13 00:00:00 Completed [facility] Pneumococcal Polysaccharide, PPSV23 (PNEUMOVAX) 2020-07-13 00:00:00 Completed [facility] Pneumococcal Polysaccharide, PPSV23 (PNEUMOVAX) 2020-07-13 00:00:00 Completed [facility] Pneumococcal Polysaccharide, PPSV23 (PNEUMOVAX) 2020-07-13 00:00:00 Completed [facility] Pneumococcal Polysaccharide, PPSV23 (PNEUMOVAX) 2020-07-13 00:00:00 Completed [facility] Pneumococcal Polysaccharide, PPSV23 (PNEUMOVAX) 2020-07-13 00:00:00 Completed [facility] Pneumococcal Polysaccharide, PPSV23 (PNEUMOVAX) 2020-07-13 00:00:00 Completed [facility] Pneumococcal Polysaccharide, PPSV23 (PNEUMOVAX) 2020-07-13 00:00:00 Completed [facility] Pneumococcal Polysaccharide, PPSV23 (PNEUMOVAX) 2020-07-13 00:00:00 Completed [facility] Pneumococcal Polysaccharide, PPSV23 (PNEUMOVAX) 2020-07-13 00:00:00 Completed [facility] Pneumococcal Polysaccharide, PPSV23 (PNEUMOVAX) 2020-07-13 00:00:00 Completed [facility] Pneumococcal Polysaccharide, PPSV23 (PNEUMOVAX) 2020-07-13 00:00:00 Completed [facility] Pneumococcal Polysaccharide, PPSV23 (PNEUMOVAX) 2020-07-13 00:00:00 Completed [facility] Pneumococcal Polysaccharide, PPSV23 (PNEUMOVAX) 2020-07-13 00:00:00 Completed [facility] Pneumococcal Polysaccharide, PPSV23 (PNEUMOVAX) 2020-07-13 00:00:00 Completed [facility] Pneumococcal Polysaccharide, PPSV23 (PNEUMOVAX) 2020-07-13 00:00:00 Completed [facility] Pneumococcal Polysaccharide, PPSV23 (PNEUMOVAX) 2020-07-13 00:00:00 Completed [facility] Pneumococcal Polysaccharide, PPSV23 (PNEUMOVAX) 2020-07-13 00:00:00 Completed [facility] Pneumococcal Polysaccharide, PPSV23 (PNEUMOVAX) 2020-07-13 00:00:00 Completed [facility] Pneumococcal Polysaccharide, PPSV23 (PNEUMOVAX) 2020-07-13 00:00:00 Completed [facility] Pneumococcal Polysaccharide, PPSV23 (PNEUMOVAX) 2020-07-13 00:00:00 Completed [facility] Pneumococcal Polysaccharide, PPSV23 (PNEUMOVAX) 2020-07-13 00:00:00 Completed [facility] Pneumococcal Polysaccharide, PPSV23 (PNEUMOVAX) 2020-07-13 00:00:00 Completed [facility] Pneumococcal Polysaccharide, PPSV23 (PNEUMOVAX) 2020-07-13 00:00:00 Completed [facility] Pneumococcal Polysaccharide, PPSV23 (PNEUMOVAX) 2020-07-13 00:00:00 Completed [facility] Pneumococcal Polysaccharide, PPSV23 (PNEUMOVAX) 2020-07-13 00:00:00 Completed [facility] Pneumococcal Polysaccharide, PPSV23 (PNEUMOVAX) 2020-07-13 00:00:00 Completed [facility] Pneumococcal Polysaccharide, PPSV23 (PNEUMOVAX) 2020-07-13 00:00:00 Completed [facility] Pneumococcal Polysaccharide, PPSV23 (PNEUMOVAX) 2020-07-13 00:00:00 Completed [facility] Pneumococcal Polysaccharide, PPSV23 (PNEUMOVAX) 2020-07-13 00:00:00 Completed [facility] Pneumococcal Polysaccharide, PPSV23 (PNEUMOVAX) 2020-07-13 00:00:00 Completed [facility] Pneumococcal Polysaccharide, PPSV23 (PNEUMOVAX) 2020-07-13 00:00:00 Completed [facility] Pneumococcal Polysaccharide, PPSV23 (PNEUMOVAX) 2020-07-13 00:00:00 Completed [facility] Pneumococcal Polysaccharide, PPSV23 (PNEUMOVAX) 2020-07-13 00:00:00 Completed [facility] Pneumococcal Polysaccharide, PPSV23 (PNEUMOVAX) 2020-07-13 00:00:00 Completed [facility] Pneumococcal Polysaccharide, PPSV23 (PNEUMOVAX) 2020-07-13 00:00:00 Completed [facility] Pneumococcal Polysaccharide, PPSV23 (PNEUMOVAX) 2020-07-13 00:00:00 Completed [facility] Pneumococcal Polysaccharide, PPSV23 (PNEUMOVAX) 2020-07-13 00:00:00 Completed [facility] Pneumococcal Polysaccharide, PPSV23 (PNEUMOVAX) 2020-07-13 00:00:00 Completed [facility] Pneumococcal Polysaccharide, PPSV23 (PNEUMOVAX) 2020-07-13 00:00:00 Completed [facility] Pneumococcal Polysaccharide, PPSV23 (PNEUMOVAX) 2020-07-13 00:00:00 Completed [facility] Pneumococcal Polysaccharide, PPSV23 (PNEUMOVAX) 2020-07-13 00:00:00 Completed [facility] Pneumococcal Polysaccharide, PPSV23 (PNEUMOVAX) 2020-07-13 00:00:00 Completed [facility] Pneumococcal Polysaccharide, PPSV23 (PNEUMOVAX) 2020-07-13 00:00:00 Completed [facility] Pneumococcal Polysaccharide, PPSV23 (PNEUMOVAX) 2020-07-13 00:00:00 Completed [facility] Pneumococcal Polysaccharide, PPSV23 (PNEUMOVAX) 2020-07-13 00:00:00 Completed [facility] Pneumococcal Polysaccharide, PPSV23 (PNEUMOVAX) 2020-07-13 00:00:00 Completed [facility] Pneumococcal Polysaccharide, PPSV23 (PNEUMOVAX) 2020-07-13 00:00:00 Completed [facility] Pneumococcal Polysaccharide, PPSV23 (PNEUMOVAX) 2020-07-13 00:00:00 Completed [facility] Pneumococcal Polysaccharide, PPSV23 (PNEUMOVAX) 2020-07-13 00:00:00 Completed [facility] Pneumococcal Polysaccharide, PPSV23 (PNEUMOVAX) 2020-07-13 00:00:00 Completed [facility] Pneumococcal Polysaccharide, PPSV23 (PNEUMOVAX) 2020-07-13 00:00:00 Completed [facility] Pneumococcal Polysaccharide, PPSV23 (PNEUMOVAX) 2020-07-13 00:00:00 Completed [facility] Pneumococcal Polysaccharide, PPSV23 (PNEUMOVAX) 2020-07-13 00:00:00 Completed [facility] Pneumococcal Polysaccharide, PPSV23 (PNEUMOVAX) 2020-07-13 00:00:00 Completed [facility] Pneumococcal Polysaccharide, PPSV23 (PNEUMOVAX) 2020-07-13 00:00:00 Completed [facility] Pneumococcal Polysaccharide, PPSV23 (PNEUMOVAX) 2020-07-13 00:00:00 Completed [facility] Pneumococcal Polysaccharide, PPSV23 (PNEUMOVAX) 2020-07-13 00:00:00 Completed [facility] Pneumococcal Polysaccharide, PPSV23 (PNEUMOVAX) 2020-07-13 00:00:00 Completed [facility] Pneumococcal Polysaccharide, PPSV23 (PNEUMOVAX) 2020-07-13 00:00:00 Completed [facility] Pneumococcal Polysaccharide, PPSV23 (PNEUMOVAX) 2020-07-13 00:00:00 Completed [facility] Pneumococcal Polysaccharide, PPSV23 (PNEUMOVAX) 2020-07-13 00:00:00 Completed [facility] Pneumococcal Polysaccharide, PPSV23 (PNEUMOVAX) 2020-07-13 00:00:00 Completed [facility] Pneumococcal Polysaccharide, PPSV23 (PNEUMOVAX) 2020-07-13 00:00:00 Completed [facility] Pneumococcal Polysaccharide, PPSV23 (PNEUMOVAX) 2020-07-13 00:00:00 Completed [facility] Pneumococcal Polysaccharide, PPSV23 (PNEUMOVAX) 2020-07-13 00:00:00 Completed [facility] Pneumococcal Polysaccharide, PPSV23 (PNEUMOVAX) 2020-07-13 00:00:00 Completed [facility] Pneumococcal Polysaccharide, PPSV23 (PNEUMOVAX) 2020-07-13 00:00:00 Completed [facility] Pneumococcal Polysaccharide, PPSV23 (PNEUMOVAX) 2020-07-13 00:00:00 Completed [facility] Pneumococcal Polysaccharide, PPSV23 (PNEUMOVAX) 2020-07-13 00:00:00 Completed [facility] Pneumococcal Polysaccharide, PPSV23 (PNEUMOVAX) 2020-07-13 00:00:00 Completed [facility] Pneumococcal Polysaccharide, PPSV23 (PNEUMOVAX) 2020-07-13 00:00:00 Completed [facility] Pneumococcal Polysaccharide, PPSV23 (PNEUMOVAX) 2020-07-13 00:00:00 Completed [facility] Pneumococcal Polysaccharide, PPSV23 (PNEUMOVAX) 2020-07-13 00:00:00 Completed [facility] Pneumococcal Polysaccharide, PPSV23 (PNEUMOVAX) 2020-07-13 00:00:00 Completed [facility] Pneumococcal Polysaccharide, PPSV23 (PNEUMOVAX) 2020-07-13 00:00:00 Completed [facility] Pneumococcal Polysaccharide, PPSV23 (PNEUMOVAX) 2020-07-13 00:00:00 Completed [facility] Pneumococcal Polysaccharide, PPSV23 (PNEUMOVAX) 2020-07-13 00:00:00 Completed [facility] Pneumococcal Polysaccharide, PPSV23 (PNEUMOVAX) 2020-07-13 00:00:00 Completed [facility] Pneumococcal Polysaccharide, PPSV23 (PNEUMOVAX) 2020-07-13 00:00:00 Completed [facility] Pneumococcal Polysaccharide, PPSV23 (PNEUMOVAX) 2020-07-13 00:00:00 Completed [facility] Pneumococcal Polysaccharide, PPSV23 (PNEUMOVAX) 2020-07-13 00:00:00 Completed [facility] Pneumococcal Polysaccharide, PPSV23 (PNEUMOVAX) 2020-07-13 00:00:00 Completed [facility] Pneumococcal Polysaccharide, PPSV23 (PNEUMOVAX) 2020-07-13 00:00:00 Completed [facility] Pneumococcal Polysaccharide, PPSV23 (PNEUMOVAX) 2020-07-13 00:00:00 Completed [facility] Pneumococcal Polysaccharide, PPSV23 (PNEUMOVAX) 2020-07-13 00:00:00 Completed [facility] Pneumococcal Polysaccharide, PPSV23 (PNEUMOVAX) 2020-07-13 00:00:00 Completed Pneumococcal Polysaccharide, PPSV23 (PNEUMOVAX) 2020-07-13 00:00:00 Completed Pneumococcal Polysaccharide, PPSV23 (PNEUMOVAX) 2020-07-13 00:00:00 Completed Pneumococcal Polysaccharide, PPSV23 (PNEUMOVAX) 2020-07-13 00:00:00 Completed [facility] Pneumococcal Polysaccharide, PPSV23 (PNEUMOVAX) 2020-07-13 00:00:00 Completed [facility] Pneumococcal Polysaccharide, PPSV23 (PNEUMOVAX) 2020-07-13 00:00:00 Completed [facility] Pneumococcal Polysaccharide, PPSV23 (PNEUMOVAX) 2020-07-13 00:00:00 Completed [facility] Pneumococcal Polysaccharide, PPSV23 (PNEUMOVAX) 2020-07-13 00:00:00 Completed [facility] Pneumococcal Polysaccharide, PPSV23 (PNEUMOVAX) 2020-07-13 00:00:00 Completed [facility] Pneumococcal Polysaccharide, PPSV23 (PNEUMOVAX) 2020-07-13 00:00:00 Completed [facility] Pneumococcal Polysaccharide, PPSV23 (PNEUMOVAX) 2020-07-13 00:00:00 Completed [facility] Pneumococcal Polysaccharide, PPSV23 (PNEUMOVAX) 2020-07-13 00:00:00 Completed [facility] Pneumococcal Polysaccharide, PPSV23 (PNEUMOVAX) 2020-07-13 00:00:00 Completed [facility] Pneumococcal Polysaccharide, PPSV23 (PNEUMOVAX) 2020-07-13 00:00:00 Completed [facility] Pneumococcal Polysaccharide, PPSV23 (PNEUMOVAX) 2020-07-13 00:00:00 Completed [facility] Pneumococcal Polysaccharide, PPSV23 (PNEUMOVAX) 2020-07-13 00:00:00 Completed [facility] Pneumococcal Polysaccharide, PPSV23 (PNEUMOVAX) 2020-07-13 00:00:00 Completed [facility] Pneumococcal Polysaccharide, PPSV23 (PNEUMOVAX) 2020-07-13 00:00:00 Completed [facility] Pneumococcal Polysaccharide, PPSV23 (PNEUMOVAX) 2020-07-13 00:00:00 Completed [facility] Pneumococcal Polysaccharide, PPSV23 (PNEUMOVAX) 2020-07-13 00:00:00 Completed [facility] Pneumococcal Polysaccharide, PPSV23 (PNEUMOVAX) 2020-07-13 00:00:00 Completed [facility] Pneumococcal Polysaccharide, PPSV23 (PNEUMOVAX) 2020-07-13 00:00:00 Completed [facility] Pneumococcal Polysaccharide, PPSV23 (PNEUMOVAX) 2020-07-13 00:00:00 Completed [facility] Pneumococcal Polysaccharide, PPSV23 (PNEUMOVAX) 2020-07-13 00:00:00 Completed [facility] Pneumococcal Polysaccharide, PPSV23 (PNEUMOVAX) 2020-07-13 00:00:00 Completed [facility] Pneumococcal Polysaccharide, PPSV23 (PNEUMOVAX) 2020-07-13 00:00:00 Completed [facility] Pneumococcal Polysaccharide, PPSV23 (PNEUMOVAX) 2020-07-13 00:00:00 Completed [facility] Pneumococcal Polysaccharide, PPSV23 (PNEUMOVAX) 2020-07-13 00:00:00 Completed [facility] Pneumococcal Polysaccharide, PPSV23 (PNEUMOVAX) 2020-07-13 00:00:00 Completed [facility] Pneumococcal Polysaccharide, PPSV23 (PNEUMOVAX) 2020-07-13 00:00:00 Completed [facility] Pneumococcal Polysaccharide, PPSV23 (PNEUMOVAX) 2020-07-13 00:00:00 Completed [facility] Pneumococcal Polysaccharide, PPSV23 (PNEUMOVAX) 2020-07-13 00:00:00 Completed [facility] Pneumococcal Polysaccharide, PPSV23 (PNEUMOVAX) 2020-07-13 00:00:00 Completed [facility] Pneumococcal Polysaccharide, PPSV23 (PNEUMOVAX) 2020-07-13 00:00:00 Completed [facility] Pneumococcal Polysaccharide, PPSV23 (PNEUMOVAX) 2020-07-13 00:00:00 Completed [facility] Pneumococcal Polysaccharide, PPSV23 (PNEUMOVAX) 2020-07-13 00:00:00 Completed [facility] Pneumococcal Polysaccharide, PPSV23 (PNEUMOVAX) 2020-07-13 00:00:00 Completed [facility] Pneumococcal Polysaccharide, PPSV23 (PNEUMOVAX) 2020-07-13 00:00:00 Completed [facility] Pneumococcal Polysaccharide, PPSV23 (PNEUMOVAX) 2020-07-13 00:00:00 Completed [facility] Pneumococcal Polysaccharide, PPSV23 (PNEUMOVAX) 2020-07-13 00:00:00 Completed [facility] Influenza Virus Vaccine Quad .5 mL IM 6+ MO 2020-05-13 00:00:00 Completed [facility] Influenza Virus Vaccine Quad .5 mL IM 6+ MO 2020-05-13 00:00:00 Completed [facility] Influenza Virus Vaccine Quad .5 mL IM 6+ MO 2020-05-13 00:00:00 Completed [facility] Influenza Virus Vaccine Quad .5 mL IM 6+ MO 2020-05-13 00:00:00 Completed [facility] Influenza Virus Vaccine Quad .5 mL IM 6+ MO 2020-05-13 00:00:00 Completed [facility] Influenza Virus Vaccine Quad .5 mL IM 6+ MO 2020-05-13 00:00:00 Completed [facility] Influenza Virus Vaccine Quad .5 mL IM 6+ MO 2020-05-13 00:00:00 Completed [facility] Influenza Virus Vaccine Quad .5 mL IM 6+ MO 2020-05-13 00:00:00 Completed [facility] Influenza Virus Vaccine Quad .5 mL IM 6+ MO 2020-05-13 00:00:00 Completed [facility] Influenza Virus Vaccine Quad .5 mL IM 6+ MO 2020-05-13 00:00:00 Completed [facility] Influenza Virus Vaccine Quad .5 mL IM 6+ MO 2020-05-13 00:00:00 Completed [facility] Influenza Virus Vaccine Quad .5 mL IM + MO 2020-05-13 00:00:00 Completed [facility] Influenza Virus Vaccine Quad .5 mL IM 6+ MO 2020-05-13 00:00:00 Completed [facility] Influenza Virus Vaccine Quad .5 mL IM 6+ MO 2020-05-13 00:00:00 Completed [facility] Influenza Virus Vaccine Quad .5 mL IM 6+ MO 2020-05-13 00:00:00 Completed [facility] Influenza Virus Vaccine Quad .5 mL IM 6+ MO 2020-05-13 00:00:00 Completed [facility] Influenza Virus Vaccine Quad .5 mL IM 6+ MO 2020-05-13 00:00:00 Completed [facility] Influenza Virus Vaccine Quad .5 mL IM 6+ MO 2020-05-13 00:00:00 Completed [facility] Influenza Virus Vaccine Quad .5 mL IM 6+ MO 2020-05-13 00:00:00 Completed [facility] Influenza Virus Vaccine Quad .5 mL IM 6+ MO 2020-05-13 00:00:00 Completed [facility] Influenza Virus Vaccine Quad .5 mL IM 6+ MO 2020-05-13 00:00:00 Completed [facility] Influenza Virus Vaccine Quad .5 mL IM 6+ MO 2020-05-13 00:00:00 Completed [facility] Influenza Virus Vaccine Quad .5 mL IM 6+ MO 2020-05-13 00:00:00 Completed [facility] Influenza Virus Vaccine Quad .5 mL IM 6+ MO 2020-05-13 00:00:00 Completed [facility] Influenza Virus Vaccine Quad .5 mL IM 6+ MO 2020-05-13 00:00:00 Completed [facility] Influenza Virus Vaccine Quad .5 mL IM 6+ MO 2020-05-13 00:00:00 Completed [facility] Influenza Virus Vaccine Quad .5 mL IM 6+ MO 2020-05-13 00:00:00 Completed [facility] Influenza Virus Vaccine Quad .5 mL IM 6+ MO 2020-05-13 00:00:00 Completed [facility] Influenza Virus Vaccine Quad .5 mL IM 6+ MO 2020-05-13 00:00:00 Completed [facility] Influenza Virus Vaccine Quad .5 mL IM 6+ MO 2020-05-13 00:00:00 Completed [facility] Influenza Virus Vaccine Quad .5 mL IM 6+ MO 2020-05-13 00:00:00 Completed [facility] Influenza Virus Vaccine Quad .5 mL IM 6+ MO 2020-05-13 00:00:00 Completed [facility] Influenza Virus Vaccine Quad .5 mL IM 6+ MO 2020-05-13 00:00:00 Completed [facility] Influenza Virus Vaccine Quad .5 mL IM 6+ MO 2020-05-13 00:00:00 Completed [facility] Influenza Virus Vaccine Quad .5 mL IM 6+ MO 2020-05-13 00:00:00 Completed [facility] Influenza Virus Vaccine Quad .5 mL IM 6+ MO 2020-05-13 00:00:00 Completed [facility] Influenza Virus Vaccine Quad .5 mL IM 6+ MO 2020-05-13 00:00:00 Completed [facility] Influenza Virus Vaccine Quad .5 mL IM 6+ MO 2020-05-13 00:00:00 Completed [facility] Influenza Virus Vaccine Quad .5 mL IM 6+ MO 2020-05-13 00:00:00 Completed [facility] Influenza Virus Vaccine Quad .5 mL IM 6+ MO 2020-05-13 00:00:00 Completed [facility] Influenza Virus Vaccine Quad .5 mL IM 6+ MO 2020-05-13 00:00:00 Completed [facility] Influenza Virus Vaccine Quad .5 mL IM 6+ MO 2020-05-13 00:00:00 Completed [facility] Influenza Virus Vaccine Quad .5 mL IM 6+ MO 2020-05-13 00:00:00 Completed [facility] Influenza Virus Vaccine Quad .5 mL IM 6+ MO 2020-05-13 00:00:00 Completed [facility] Influenza Virus Vaccine Quad .5 mL IM 6+ MO 2020-05-13 00:00:00 Completed [facility] Influenza Virus Vaccine Quad .5 mL IM + MO 2020-05-13 00:00:00 Completed [facility] Influenza Virus Vaccine Quad .5 mL IM 6+ MO 2020-05-13 00:00:00 Completed [facility] Influenza Virus Vaccine Quad .5 mL IM 6+ MO 2020-05-13 00:00:00 Completed [facility] Influenza Virus Vaccine Quad .5 mL IM + MO 2020-05-13 00:00:00 Completed [facility] Influenza Virus Vaccine Quad .5 mL IM 6+ MO 2020-05-13 00:00:00 Completed [facility] Influenza Virus Vaccine Quad .5 mL IM 6+ MO 2020-05-13 00:00:00 Completed [facility] Influenza Virus Vaccine Quad .5 mL IM 6+ MO 2020-05-13 00:00:00 Completed [facility] Influenza Virus Vaccine Quad .5 mL IM 6+ MO 2020-05-13 00:00:00 Completed [facility] Influenza Virus Vaccine Quad .5 mL IM 6+ MO 2020-05-13 00:00:00 Completed [facility] Influenza Virus Vaccine Quad .5 mL IM 6+ MO 2020-05-13 00:00:00 Completed [facility] Influenza Virus Vaccine Quad .5 mL IM 6+ MO 2020-05-13 00:00:00 Completed [facility] Influenza Virus Vaccine Quad .5 mL IM 6+ MO 2020-05-13 00:00:00 Completed [facility] Influenza Virus Vaccine Quad .5 mL IM 6+ MO 2020-05-13 00:00:00 Completed [facility] Influenza Virus Vaccine Quad .5 mL IM 6+ MO 2020-05-13 00:00:00 Completed [facility] Influenza Virus Vaccine Quad .5 mL IM 6+ MO 2020-05-13 00:00:00 Completed [facility] Influenza Virus Vaccine Quad .5 mL IM 6+ MO 2020-05-13 00:00:00 Completed [facility] Influenza Virus Vaccine Quad .5 mL IM 6+ MO 2020-05-13 00:00:00 Completed [facility] Influenza Virus Vaccine Quad .5 mL IM 6+ MO 2020-05-13 00:00:00 Completed [facility] Influenza Virus Vaccine Quad .5 mL IM 6+ MO 2020-05-13 00:00:00 Completed [facility] Influenza Virus Vaccine Quad .5 mL IM 6+ MO 2020-05-13 00:00:00 Completed [facility] Influenza Virus Vaccine Quad .5 mL IM 6+ MO 2020-05-13 00:00:00 Completed [facility] Influenza Virus Vaccine Quad .5 mL IM 6+ MO 2020-05-13 00:00:00 Completed [facility] Influenza Virus Vaccine Quad .5 mL IM 6+ MO 2020-05-13 00:00:00 Completed [facility] Influenza Virus Vaccine Quad .5 mL IM 6+ MO 2020-05-13 00:00:00 Completed [facility] Influenza Virus Vaccine Quad .5 mL IM 6+ MO 2020-05-13 00:00:00 Completed [facility] Influenza Virus Vaccine Quad .5 mL IM 6+ MO 2020-05-13 00:00:00 Completed [facility] Influenza Virus Vaccine Quad .5 mL IM 6+ MO 2020-05-13 00:00:00 Completed [facility] Influenza Virus Vaccine Quad .5 mL IM 6+ MO 2020-05-13 00:00:00 Completed [facility] Influenza Virus Vaccine Quad .5 mL IM 6+ MO 2020-05-13 00:00:00 Completed [facility] Influenza Virus Vaccine Quad .5 mL IM 6+ MO 2020-05-13 00:00:00 Completed [facility] Influenza Virus Vaccine Quad .5 mL IM 6+ MO 2020-05-13 00:00:00 Completed [facility] Influenza Virus Vaccine Quad .5 mL IM 6+ MO 2020-05-13 00:00:00 Completed [facility] Influenza Virus Vaccine Quad .5 mL IM 6+ MO 2020-05-13 00:00:00 Completed [facility] Influenza Virus Vaccine Quad .5 mL IM 6+ MO 2020-05-13 00:00:00 Completed [facility] Influenza Virus Vaccine Quad .5 mL IM 6+ MO 2020-05-13 00:00:00 Completed [facility] Influenza Virus Vaccine Quad .5 mL IM 6+ MO 2020-05-13 00:00:00 Completed [facility] Influenza Virus Vaccine Quad .5 mL IM 6+ MO 2020-05-13 00:00:00 Completed [facility] Influenza Virus Vaccine Quad .5 mL IM + MO 2020-05-13 00:00:00 Completed [facility] Influenza Virus Vaccine Quad .5 mL IM 6+ MO 2020-05-13 00:00:00 Completed [facility] Influenza Virus Vaccine Quad .5 mL IM 6+ MO 2020-05-13 00:00:00 Completed [facility] Influenza Virus Vaccine Quad .5 mL IM + MO 2020-05-13 00:00:00 Completed [facility] Influenza Virus Vaccine Quad .5 mL IM 6+ MO 2020-05-13 00:00:00 Completed [facility] Influenza Virus Vaccine Quad .5 mL IM 6+ MO 2020-05-13 00:00:00 Completed [facility] Influenza Virus Vaccine Quad .5 mL IM 6+ MO 2020-05-13 00:00:00 Completed [facility] Influenza Virus Vaccine Quad .5 mL IM 6+ MO 2020-05-13 00:00:00 Completed [facility] Influenza Virus Vaccine Quad .5 mL IM 6+ MO 2020-05-13 00:00:00 Completed [facility] Influenza Virus Vaccine Quad .5 mL IM 6+ MO 2020-05-13 00:00:00 Completed [facility] Influenza Virus Vaccine Quad .5 mL IM 6+ MO 2020-05-13 00:00:00 Completed [facility] Influenza Virus Vaccine Quad .5 mL IM 6+ MO 2020-05-13 00:00:00 Completed [facility] Influenza Virus Vaccine Quad .5 mL IM 6+ MO 2020-05-13 00:00:00 Completed [facility] Influenza Virus Vaccine Quad .5 mL IM 6+ MO 2020-05-13 00:00:00 Completed [facility] Influenza Virus Vaccine Quad .5 mL IM 6+ MO 2020-05-13 00:00:00 Completed [facility] Influenza Virus Vaccine Quad .5 mL IM 6+ MO (FLUZONE/FLULAVAL/F LUARIX) 2020-05-13 00:00:00 Completed [facility] Influenza Virus Vaccine Quad .5 mL IM 6+ MO (FLUZONE/FLULAVAL/F LUARIX) 2020-05-13 00:00:00 Completed [facility] Influenza Virus Vaccine Quad .5 mL IM 6+ MO (FLUZONE/FLULAVAL/F LUARIX) 2020-05-13 00:00:00 Completed [facility] Influenza Virus Vaccine Quad .5 mL IM 6+ MO (FLUZONE/FLULAVAL/F LUARIX) 2020-05-13 00:00:00 Completed [facility] Influenza Virus Vaccine Quad .5 mL IM 6+ MO (FLUZONE/FLULAVAL/F LUARIX) 2020-05-13 00:00:00 Completed [facility] Influenza Virus Vaccine Quad .5 mL IM 6+ MO 2020-05-13 00:00:00 Completed [facility] Influenza Virus Vaccine Quad .5 mL IM 6+ MO 2020-05-13 00:00:00 Completed [facility] Influenza Virus Vaccine Quad .5 mL IM 6+ MO 2020-05-13 00:00:00 Completed [facility] Influenza Virus Vaccine Quad .5 mL IM 6+ MO 2020-05-13 00:00:00 Completed [facility] Influenza Virus Vaccine Quad .5 mL IM 6+ MO 2020-05-13 00:00:00 Completed [facility] Influenza Virus Vaccine Quad .5 mL IM 6+ MO 2020-05-13 00:00:00 Completed [facility] Influenza Virus Vaccine Quad .5 mL IM 6+ MO 2020-05-13 00:00:00 Completed [facility] Influenza Virus Vaccine Quad .5 mL IM 6+ MO 2020-05-13 00:00:00 Completed [facility] Influenza Virus Vaccine Quad .5 mL IM 6+ MO 2020-05-13 00:00:00 Completed [facility] Influenza Virus Vaccine Quad .5 mL IM 6+ MO 2020-05-13 00:00:00 Completed [facility] Influenza Virus Vaccine Quad .5 mL IM 6+ MO 2020-05-13 00:00:00 Completed [facility] Influenza Virus Vaccine Quad .5 mL IM 6+ MO 2020-05-13 00:00:00 Completed [facility] Influenza Virus Vaccine Quad .5 mL IM 6+ MO 2020-05-13 00:00:00 Completed [facility] Influenza Virus Vaccine Quad .5 mL IM 6+ MO 2020-05-13 00:00:00 Completed [facility] Influenza Virus Vaccine Quad .5 mL IM 6+ MO 2020-05-13 00:00:00 Completed [facility] Influenza Virus Vaccine Quad .5 mL IM 6+ MO 2020-05-13 00:00:00 Completed [facility] Influenza Virus Vaccine Quad .5 mL IM 6+ MO 2020-05-13 00:00:00 Completed [facility] Influenza Virus Vaccine Quad .5 mL IM 6+ MO 2020-05-13 00:00:00 Completed [facility] Influenza Virus Vaccine Quad .5 mL IM 6+ MO 2020-05-13 00:00:00 Completed [facility] Influenza Virus Vaccine Quad .5 mL IM 6+ MO 2020-05-13 00:00:00 Completed [facility] Influenza Virus Vaccine Quad .5 mL IM 6+ MO 2020-05-13 00:00:00 Completed [facility] Influenza Virus Vaccine Quad .5 mL IM 6+ MO 2020-05-13 00:00:00 Completed [facility] Influenza Virus Vaccine Quad .5 mL IM 6+ MO 2020-05-13 00:00:00 Completed [facility] Influenza Virus Vaccine Quad .5 mL IM 6+ MO 2020-05-13 00:00:00 Completed [facility] Influenza Virus Vaccine Quad .5 mL IM 6+ MO 2020-05-13 00:00:00 Completed [facility] Influenza Virus Vaccine Quad .5 mL IM 6+ MO 2020-05-13 00:00:00 Completed [facility] Influenza Virus Vaccine Quad .5 mL IM 6+ MO 2020-05-13 00:00:00 Completed [facility] Influenza Virus Vaccine Quad .5 mL IM 6+ MO 2020-05-13 00:00:00 Completed [facility] Influenza Virus Vaccine Quad .5 mL IM 6+ MO 2020-05-13 00:00:00 Completed [facility] Influenza Virus Vaccine Quad .5 mL IM 6+ MO 2020-05-13 00:00:00 Completed [facility] Influenza Virus Vaccine Quad .5 mL IM 6+ MO 2020-05-13 00:00:00 Completed [facility] Influenza Virus Vaccine Quad .5 mL IM 6+ MO 2020-05-13 00:00:00 Completed [facility] Influenza Virus Vaccine Quad .5 mL IM 6+ MO 2020-05-13 00:00:00 Completed [facility] Influenza Virus Vaccine Quad .5 mL IM 6+ MO 2020-05-13 00:00:00 Completed [facility] Influenza Virus Vaccine Quad .5 mL IM 6+ MO 2020-05-13 00:00:00 Completed [facility] Influenza Virus Vaccine Quad .5 mL IM 6+ MO 2020-05-13 00:00:00 Completed [facility] Influenza Virus Vaccine Quad .5 mL IM 6+ MO 2020-05-13 00:00:00 Completed [facility] Influenza Virus Vaccine Quad IM 3+ YRS 2017-05-29 00:00:00 Completed [facility] Influenza Virus Vaccine Quad IM 3+ YRS 2017-05-29 00:00:00 Completed [facility] Influenza Virus Vaccine Quad IM 3+ YRS 2017-05-29 00:00:00 Completed [facility] Influenza Virus Vaccine Quad IM 3+ YRS 2017-05-29 00:00:00 Completed [facility] Influenza Virus Vaccine Quad IM 3+ YRS 2017-05-29 00:00:00 Completed [facility] Influenza Virus Vaccine Quad IM 3+ YRS 2017-05-29 00:00:00 Completed [facility] Influenza Virus Vaccine Quad IM 3+ YRS 2017-05-29 00:00:00 Completed [facility] Influenza Virus Vaccine Quad IM 3+ YRS 2017-05-29 00:00:00 Completed [facility] Influenza Virus Vaccine Quad IM 3+ YRS 2017-05-29 00:00:00 Completed [facility] Influenza Virus Vaccine Quad IM 3+ YRS 2017-05-29 00:00:00 Completed [facility] Influenza Virus Vaccine Quad IM 3+ YRS 2017-05-29 00:00:00 Completed [facility] Influenza Virus Vaccine Quad IM 3+ YRS 2017-05-29 00:00:00 Completed [facility] Influenza Virus Vaccine Quad IM 3+ YRS 2017-05-29 00:00:00 Completed [facility] Influenza Virus Vaccine Quad IM 3+ YRS 2017-05-29 00:00:00 Completed [facility] Influenza Virus Vaccine Quad IM 3+ YRS 2017-05-29 00:00:00 Completed [facility] Influenza Virus Vaccine Quad IM 3+ YRS 2017-05-29 00:00:00 Completed [facility] Influenza Virus Vaccine Quad IM 3+ YRS 2017-05-29 00:00:00 Completed [facility] Influenza Virus Vaccine Quad IM 3+ YRS 2017-05-29 00:00:00 Completed [facility] Influenza Virus Vaccine Quad IM 3+ YRS 2017-05-29 00:00:00 Completed [facility] Influenza Virus Vaccine Quad IM 3+ YRS 2017-05-29 00:00:00 Completed [facility] Influenza Virus Vaccine Quad IM 3+ YRS 2017-05-29 00:00:00 Completed [facility] Influenza Virus Vaccine Quad IM 3+ YRS 2017-05-29 00:00:00 Completed [facility] Influenza Virus Vaccine Quad IM 3+ YRS 2017-05-29 00:00:00 Completed [facility] Influenza Virus Vaccine Quad IM 3+ YRS 2017-05-29 00:00:00 Completed [facility] Influenza Virus Vaccine Quad IM 3+ YRS 2017-05-29 00:00:00 Completed [facility] Influenza Virus Vaccine Quad IM 3+ YRS 2017-05-29 00:00:00 Completed [facility] Influenza Virus Vaccine Quad IM 3+ YRS 2017-05-29 00:00:00 Completed [facility] Influenza Virus Vaccine Quad IM 3+ YRS 2017-05-29 00:00:00 Completed [facility] Influenza Virus Vaccine Quad IM 3+ YRS 2017-05-29 00:00:00 Completed [facility] Influenza Virus Vaccine Quad IM 3+ YRS 2017-05-29 00:00:00 Completed [facility] Influenza Virus Vaccine Quad IM 3+ YRS 2017-05-29 00:00:00 Completed [facility] Influenza Virus Vaccine Quad IM 3+ YRS 2017-05-29 00:00:00 Completed [facility] Influenza Virus Vaccine Quad IM 3+ YRS 2017-05-29 00:00:00 Completed [facility] Influenza Virus Vaccine Quad IM 3+ YRS 2017-05-29 00:00:00 Completed [facility] Influenza Virus Vaccine Quad IM 3+ YRS 2017-05-29 00:00:00 Completed [facility] Influenza Virus Vaccine Quad IM 3+ YRS 2017-05-29 00:00:00 Completed [facility] Influenza Virus Vaccine Quad IM 3+ YRS 2017-05-29 00:00:00 Completed [facility] Influenza Virus Vaccine Quad IM 3+ YRS 2017-05-29 00:00:00 Completed [facility] Influenza Virus Vaccine Quad IM 3+ YRS 2017-05-29 00:00:00 Completed [facility] Influenza Virus Vaccine Quad IM 3+ YRS 2017-05-29 00:00:00 Completed [facility] Influenza Virus Vaccine Quad IM 3+ YRS 2017-05-29 00:00:00 Completed [facility] Influenza Virus Vaccine Quad IM 3+ YRS 2017-05-29 00:00:00 Completed [facility] Influenza Virus Vaccine Quad IM 3+ YRS 2017-05-29 00:00:00 Completed [facility] Influenza Virus Vaccine Quad IM 3+ YRS 2017-05-29 00:00:00 Completed [facility] Influenza Virus Vaccine Quad IM 3+ YRS 2017-05-29 00:00:00 Completed [facility] Influenza Virus Vaccine Quad IM 3+ YRS 2017-05-29 00:00:00 Completed [facility] Influenza Virus Vaccine Quad IM 3+ YRS 2017-05-29 00:00:00 Completed [facility] Influenza Virus Vaccine Quad IM 3+ YRS 2017-05-29 00:00:00 Completed [facility] Influenza Virus Vaccine Quad IM 3+ YRS 2017-05-29 00:00:00 Completed [facility] Influenza Virus Vaccine Quad IM 3+ YRS 2017-05-29 00:00:00 Completed [facility] Influenza Virus Vaccine Quad IM 3+ YRS 2017-05-29 00:00:00 Completed [facility] Influenza Virus Vaccine Quad IM 3+ YRS 2017-05-29 00:00:00 Completed [facility] Influenza Virus Vaccine Quad IM 3+ YRS 2017-05-29 00:00:00 Completed [facility] Influenza Virus Vaccine Quad IM 3+ YRS 2017-05-29 00:00:00 Completed [facility] Influenza Virus Vaccine Quad IM 3+ YRS 2017-05-29 00:00:00 Completed [facility] Influenza Virus Vaccine Quad IM 3+ YRS 2017-05-29 00:00:00 Completed [facility] Influenza Virus Vaccine Quad IM 3+ YRS 2017-05-29 00:00:00 Completed [facility] Influenza Virus Vaccine Quad IM 3+ YRS 2017-05-29 00:00:00 Completed [facility] Influenza Virus Vaccine Quad IM 3+ YRS 2017-05-29 00:00:00 Completed [facility] Influenza Virus Vaccine Quad IM 3+ YRS 2017-05-29 00:00:00 Completed [facility] Influenza Virus Vaccine Quad IM 3+ YRS 2017-05-29 00:00:00 Completed [facility] Influenza Virus Vaccine Quad IM 3+ YRS 2017-05-29 00:00:00 Completed [facility] Influenza Virus Vaccine Quad IM 3+ YRS 2017-05-29 00:00:00 Completed [facility] Influenza Virus Vaccine Quad IM 3+ YRS 2017-05-29 00:00:00 Completed [facility] Influenza Virus Vaccine Quad IM 3+ YRS 2017-05-29 00:00:00 Completed [facility] Influenza Virus Vaccine Quad IM 3+ YRS 2017-05-29 00:00:00 Completed [facility] Influenza Virus Vaccine Quad IM 3+ YRS 2017-05-29 00:00:00 Completed [facility] Influenza Virus Vaccine Quad IM 3+ YRS 2017-05-29 00:00:00 Completed [facility] Influenza Virus Vaccine Quad IM 3+ YRS 2017-05-29 00:00:00 Completed [facility] Influenza Virus Vaccine Quad IM 3+ YRS 2017-05-29 00:00:00 Completed [facility] Influenza Virus Vaccine Quad IM 3+ YRS 2017-05-29 00:00:00 Completed [facility] Influenza Virus Vaccine Quad IM 3+ YRS 2017-05-29 00:00:00 Completed [facility] Influenza Virus Vaccine Quad IM 3+ YRS 2017-05-29 00:00:00 Completed [facility] Influenza Virus Vaccine Quad IM 3+ YRS 2017-05-29 00:00:00 Completed [facility] Influenza Virus Vaccine Quad IM 3+ YRS 2017-05-29 00:00:00 Completed [facility] Influenza Virus Vaccine Quad IM 3+ YRS 2017-05-29 00:00:00 Completed [facility] Influenza Virus Vaccine Quad IM 3+ YRS 2017-05-29 00:00:00 Completed [facility] Influenza Virus Vaccine Quad IM 3+ YRS 2017-05-29 00:00:00 Completed [facility] Influenza Virus Vaccine Quad IM 3+ YRS 2017-05-29 00:00:00 Completed [facility] Influenza Virus Vaccine Quad IM 3+ YRS 2017-05-29 00:00:00 Completed [facility] Influenza Virus Vaccine Quad IM 3+ YRS 2017-05-29 00:00:00 Completed [facility] Influenza Virus Vaccine Quad IM 3+ YRS 2017-05-29 00:00:00 Completed [facility] Influenza Virus Vaccine Quad IM 3+ YRS 2017-05-29 00:00:00 Completed [facility] Influenza Virus Vaccine Quad IM 3+ YRS 2017-05-29 00:00:00 Completed [facility] Influenza Virus Vaccine Quad IM 3+ YRS 2017-05-29 00:00:00 Completed [facility] Influenza Virus Vaccine Quad IM 3+ YRS 2017-05-29 00:00:00 Completed [facility] Influenza Virus Vaccine Quad IM 3+ YRS 2017-05-29 00:00:00 Completed [facility] Influenza Virus Vaccine Quad IM 3+ YRS 2017-05-29 00:00:00 Completed [facility] Influenza Virus Vaccine Quad IM 3+ YRS 2017-05-29 00:00:00 Completed [facility] Influenza Virus Vaccine Quad IM 3+ YRS 2017-05-29 00:00:00 Completed [facility] Influenza Virus Vaccine Quad IM 3+ YRS 2017-05-29 00:00:00 Completed [facility] Influenza Virus Vaccine Quad IM 3+ YRS 2017-05-29 00:00:00 Completed [facility] Influenza Virus Vaccine Quad IM 3+ YRS 2017-05-29 00:00:00 Completed [facility] Influenza Virus Vaccine Quad IM 3+ YRS 2017-05-29 00:00:00 Completed [facility] Influenza Virus Vaccine Quad IM 3+ YRS 2017-05-29 00:00:00 Completed [facility] Influenza Virus Vaccine Quad IM 3+ YRS 2017-05-29 00:00:00 Completed [facility] Influenza Virus Vaccine Quad IM 3+ YRS 2017-05-29 00:00:00 Completed [facility] Influenza Virus Vaccine Quad IM 3+ YRS 2017-05-29 00:00:00 Completed [facility] Influenza Virus Vaccine Quad IM 3+ YRS 2017-05-29 00:00:00 Completed [facility] Influenza Virus Vaccine Quad IM 3+ YRS 2017-05-29 00:00:00 Completed [facility] Influenza Virus Vaccine Quad IM 3+ YRS 2017-05-29 00:00:00 Completed [facility] Influenza Virus Vaccine Quad IM 3+ YRS 2017-05-29 00:00:00 Completed [facility] Influenza Virus Vaccine Quad IM 3+ YRS 2017-05-29 00:00:00 Completed [facility] Influenza Virus Vaccine Quad IM 3+ YRS 2017-05-29 00:00:00 Completed [facility] Influenza Virus Vaccine Quad IM 3+ YRS 2017-05-29 00:00:00 Completed [facility] Influenza Virus Vaccine Quad IM 3+ YRS 2017-05-29 00:00:00 Completed [facility] Influenza Virus Vaccine Quad IM 3+ YRS 2017-05-29 00:00:00 Completed [facility] Influenza Virus Vaccine Quad IM 3+ YRS 2017-05-29 00:00:00 Completed [facility] Influenza Virus Vaccine Quad IM 3+ YRS 2017-05-29 00:00:00 Completed [facility] Influenza Virus Vaccine Quad IM 3+ YRS 2017-05-29 00:00:00 Completed [facility] Influenza Virus Vaccine Quad IM 3+ YRS 2017-05-29 00:00:00 [facility]pleted [facility] [facility] Influenza Virus Vaccine Quad IM 3+ YRS 2017-05-29 00:00:00 Completed [facility] Influenza Virus Vaccine Quad IM 3+ YRS 2017-05-29 00:00:00 Completed [facility] Influenza Virus Vaccine Quad IM 3+ YRS 2017-05-29 00:00:00 Completed [facility] Influenza Virus Vaccine Quad IM 3+ YRS 2017-05-29 00:00:00 Completed [facility] Influenza Virus Vaccine Quad IM 3+ YRS 2017-05-29 00:00:00 Completed [facility] Influenza Virus Vaccine Quad IM 3+ YRS 2017-05-29 00:00:00 Completed [facility] Influenza Virus Vaccine Quad IM 3+ YRS 2017-05-29 00:00:00 Completed [facility] Influenza Virus Vaccine Quad IM 3+ YRS 2017-05-29 00:00:00 Completed [facility] Influenza Virus Vaccine Quad IM 3+ YRS 2017-05-29 00:00:00 Completed [facility] Influenza Virus Vaccine Quad IM 3+ YRS 2017-05-29 00:00:00 Completed [facility] Influenza Virus Vaccine Quad IM 3+ YRS 2017-05-29 00:00:00 Completed [facility] Influenza Virus Vaccine Quad IM 3+ YRS 2017-05-29 00:00:00 Completed [facility] Influenza Virus Vaccine Quad IM 3+ YRS 2017-05-29 00:00:00 Completed [facility] Influenza Virus Vaccine Quad IM 3+ YRS 2017-05-29 00:00:00 Completed [facility] Influenza Virus Vaccine Quad IM 3+ YRS 2017-05-29 00:00:00 Completed [facility] Influenza Virus Vaccine Quad IM 3+ YRS 2017-05-29 00:00:00 Completed [facility] Influenza Virus Vaccine Quad IM 3+ YRS 2017-05-29 00:00:00 Completed [facility] Influenza Virus Vaccine Quad IM 3+ YRS 2017-05-29 00:00:00 Completed [facility] Influenza Virus Vaccine Quad IM 3+ YRS 2017-05-29 00:00:00 Completed [facility] Influenza Virus Vaccine Quad IM 3+ YRS 2017-05-29 00:00:00 Completed [facility] Influenza Virus Vaccine Quad IM 3+ YRS 2017-05-29 00:00:00 Completed [facility] Influenza Virus Vaccine Quad IM 3+ YRS 2017-05-29 00:00:00 Completed [facility] Influenza Virus Vaccine Quad IM 3+ YRS 2017-05-29 00:00:00 Completed [facility] Influenza Virus Vaccine Quad IM 3+ YRS 2017-05-29 00:00:00 Completed [facility] Influenza Virus Vaccine Quad IM 3+ YRS 2017-05-29 00:00:00 Completed [facility] Influenza Virus Vaccine Quad IM 3+ YRS 2017-05-29 00:00:00 Completed [facility] Influenza Virus Vaccine Quad IM 3+ YRS 2017-05-29 00:00:00 Completed [facility] Influenza Virus Vaccine Quad IM 3+ YRS 2017-05-29 00:00:00 Completed [facility] MMR 2017-04-29 00:00:00 Completed [facility] MMR 2017-04-29 00:00:00 Completed [facility] MMR 2017-04-29 00:00:00 Completed [facility] MMR 2017-04-29 00:00:00 Completed [facility] MMR 2017-04-29 00:00:00 Completed [facility] MMR 2017-04-29 00:00:00 Completed [facility] MMR 2017-04-29 00:00:00 Completed [facility] MMR 2017-04-29 00:00:00 Completed [facility] MMR 2017-04-29 00:00:00 Completed [facility] MMR 2017-04-29 00:00:00 Completed [facility] MMR 2017-04-29 00:00:00 Completed [facility] MMR 2017-04-29 00:00:00 Completed [facility] MMR 2017-04-29 00:00:00 Completed [facility] MMR 2017-04-29 00:00:00 Completed [facility] MMR 2017-04-29 00:00:00 Completed [facility] MMR 2017-04-29 00:00:00 Completed [facility] MMR 2017-04-29 00:00:00 Completed [facility] MMR 2017-04-29 00:00:00 Completed [facility] MMR 2017-04-29 00:00:00 Completed [facility] MMR 2017-04-29 00:00:00 Completed [facility] MMR 2017-04-29 00:00:00 Completed [facility] MMR 2017-04-29 00:00:00 Completed [facility] MMR 2017-04-29 00:00:00 Completed [facility] MMR 2017-04-29 00:00:00 Completed [facility] MMR 2017-04-29 00:00:00 Completed [facility] MMR 2017-04-29 00:00:00 Completed [facility] MMR 2017-04-29 00:00:00 Completed [facility] MMR 2017-04-29 00:00:00 Completed [facility] MMR 2017-04-29 00:00:00 Completed [facility] MMR 2017-04-29 00:00:00 Completed [facility] MMR 2017-04-29 00:00:00 Completed [facility] MMR 2017-04-29 00:00:00 Completed [facility] MMR 2017-04-29 00:00:00 Completed [facility] MMR 2017-04-29 00:00:00 Completed [facility] MMR 2017-04-29 00:00:00 Completed [facility] MMR 2017-04-29 00:00:00 Completed [facility] MMR 2017-04-29 00:00:00 Completed [facility] MMR 2017-04-29 00:00:00 Completed [facility] MMR 2017-04-29 00:00:00 Completed [facility] MMR 2017-04-29 00:00:00 Completed [facility] MMR 2017-04-29 00:00:00 Completed [facility] MMR 2017-04-29 00:00:00 Completed [facility] MMR 2017-04-29 00:00:00 Completed [facility] MMR 2017-04-29 00:00:00 Completed [facility] MMR 2017-04-29 00:00:00 Completed [facility] MMR 2017-04-29 00:00:00 Completed [facility] MMR 2017-04-29 00:00:00 Completed [facility] MMR 2017-04-29 00:00:00 Completed [facility] MMR 2017-04-29 00:00:00 Completed [facility] MMR 2017-04-29 00:00:00 Completed [facility] MMR 2017-04-29 00:00:00 Completed [facility] MMR 2017-04-29 00:00:00 Completed [facility] MMR 2017-04-29 00:00:00 Completed [facility] MMR 2017-04-29 00:00:00 Completed [facility] MMR 2017-04-29 00:00:00 Completed [facility] MMR 2017-04-29 00:00:00 Completed [facility] MMR 2017-04-29 00:00:00 Completed [facility] MMR 2017-04-29 00:00:00 Completed [facility] MMR 2017-04-29 00:00:00 Completed [facility] MMR 2017-04-29 00:00:00 Completed [facility] MMR 2017-04-29 00:00:00 Completed [facility] MMR 2017-04-29 00:00:00 Completed [facility] MMR 2017-04-29 00:00:00 Completed [facility] MMR 2017-04-29 00:00:00 Completed [facility] MMR 2017-04-29 00:00:00 Completed [facility] MMR 2017-04-29 00:00:00 Completed [facility] MMR 2017-04-29 00:00:00 Completed [facility] MMR 2017-04-29 00:00:00 Completed [facility] MMR 2017-04-29 00:00:00 Completed [facility] MMR 2017-04-29 00:00:00 Completed [facility] MMR 2017-04-29 00:00:00 Completed [facility] MMR 2017-04-29 00:00:00 Completed [facility] MMR 2017-04-29 00:00:00 Completed [facility] MMR 2017-04-29 00:00:00 Completed [facility] MMR 2017-04-29 00:00:00 Completed [facility] MMR 2017-04-29 00:00:00 Completed [facility] MMR 2017-04-29 00:00:00 Completed [facility] MMR 2017-04-29 00:00:00 Completed [facility] MMR 2017-04-29 00:00:00 Completed [facility] MMR 2017-04-29 00:00:00 Completed [facility] MMR 2017-04-29 00:00:00 Completed [facility] MMR 2017-04-29 00:00:00 Completed [facility] MMR 2017-04-29 00:00:00 Completed [facility] MMR 2017-04-29 00:00:00 Completed [facility] MMR 2017-04-29 00:00:00 Completed [facility] MMR 2017-04-29 00:00:00 Completed [facility] MMR 2017-04-29 00:00:00 Completed [facility] MMR 2017-04-29 00:00:00 Completed [facility] MMR 2017-04-29 00:00:00 Completed [facility] MMR 2017-04-29 00:00:00 Completed [facility] MMR 2017-04-29 00:00:00 Completed [facility] MMR 2017-04-29 00:00:00 Completed [facility] MMR 2017-04-29 00:00:00 Completed [facility] MMR 2017-04-29 00:00:00 Completed [facility] MMR 2017-04-29 00:00:00 Completed [facility] MMR 2017-04-29 00:00:00 Completed [facility] MMR 2017-04-29 00:00:00 Completed [facility] MMR 2017-04-29 00:00:00 Completed [facility] MMR 2017-04-29 00:00:00 Completed [facility] MMR 2017-04-29 00:00:00 Completed [facility] MMR 2017-04-29 00:00:00 Completed [facility] MMR 2017-04-29 00:00:00 Completed [facility] MMR 2017-04-29 00:00:00 Completed [facility] MMR 2017-04-29 00:00:00 Completed [facility] MMR 2017-04-29 00:00:00 Completed [facility] MMR 2017-04-29 00:00:00 Completed [facility] MMR 2017-04-29 00:00:00 Completed [facility] MMR 2017-04-29 00:00:00 Completed [facility] MMR 2017-04-29 00:00:00 Completed [facility] MMR 2017-04-29 00:00:00 Completed [facility] MMR 2017-04-29 00:00:00 Completed [facility] MMR 2017-04-29 00:00:00 Completed [facility] MMR 2017-04-29 00:00:00 Completed [facility] MMR 2017-04-29 00:00:00 Completed [facility] MMR 2017-04-29 00:00:00 Completed [facility] MMR 2017-04-29 00:00:00 Completed [facility] MMR 2017-04-29 00:00:00 Completed [facility] MMR 2017-04-29 00:00:00 Completed [facility] MMR 2017-04-29 00:00:00 Completed [facility] MMR 2017-04-29 00:00:00 Completed [facility] MMR 2017-04-29 00:00:00 Completed [facility] MMR 2017-04-29 00:00:00 Completed [facility] MMR 2017-04-29 00:00:00 Completed [facility] MMR 2017-04-29 00:00:00 Completed [facility] MMR 2017-04-29 00:00:00 Completed [facility] MMR 2017-04-29 00:00:00 Completed [facility] MMR 2017-04-29 00:00:00 Completed [facility] MMR 2017-04-29 00:00:00 Completed [facility] MMR 2017-04-29 00:00:00 Completed [facility] MMR 2017-04-29 00:00:00 Completed [facility] MMR 2017-04-29 00:00:00 Completed [facility] MMR 2017-04-29 00:00:00 Completed [facility] MMR 2017-04-29 00:00:00 Completed [facility] MMR 2017-04-29 00:00:00 Completed [facility] MMR 2017-04-29 00:00:00 Completed [facility] MMR 2017-04-29 00:00:00 Completed [facility] MMR 2017-04-29 00:00:00 Completed [facility] MMR 2017-04-29 00:00:00 Completed [facility] MMR 2017-04-29 00:00:00 Completed [facility] TDAP 2017-02-28 00:00:00 Completed [facility] TDAP 2017-02-28 00:00:00 Completed [facility] TDAP 2017-02-28 00:00:00 Completed [facility] TDAP 2017-02-28 00:00:00 Completed [facility] TDAP 2017-02-28 00:00:00 Completed [facility] TDAP 2017-02-28 00:00:00 Completed [facility] TDAP 2017-02-28 00:00:00 Completed [facility] TDAP 2017-02-28 00:00:00 Completed [facility] TDAP 2017-02-28 00:00:00 Completed [facility] TDAP 2017-02-28 00:00:00 Completed [facility] TDAP 2017-02-28 00:00:00 Completed [facility] TDAP 2017-02-28 00:00:00 Completed [facility] TDAP 2017-02-28 00:00:00 Completed [facility] TDAP 2017-02-28 00:00:00 Completed [facility] TDAP 2017-02-28 00:00:00 Completed [facility] TDAP 2017-02-28 00:00:00 Completed [facility] TDAP 2017-02-28 00:00:00 Completed [facility] TDAP 2017-02-28 00:00:00 Completed [facility] TDAP 2017-02-28 00:00:00 Completed [facility] TDAP 2017-02-28 00:00:00 Completed [facility] TDAP 2017-02-28 00:00:00 Completed [facility] TDAP 2017-02-28 00:00:00 Completed [facility] TDAP 2017-02-28 00:00:00 Completed [facility] TDAP 2017-02-28 00:00:00 Completed [facility] TDAP 2017-02-28 00:00:00 Completed [facility] TDAP 2017-02-28 00:00:00 Completed [facility] TDAP 2017-02-28 00:00:00 Completed [facility] TDAP 2017-02-28 00:00:00 Completed [facility] TDAP 2017-02-28 00:00:00 Completed [facility] TDAP 2017-02-28 00:00:00 Completed [facility] TDAP 2017-02-28 00:00:00 Completed [facility] TDAP 2017-02-28 00:00:00 Completed [facility] TDAP 2017-02-28 00:00:00 Completed [facility] TDAP 2017-02-28 00:00:00 Completed [facility] TDAP 2017-02-28 00:00:00 Completed [facility] TDAP 2017-02-28 00:00:00 Completed [facility] TDAP 2017-02-28 00:00:00 Completed [facility] TDAP 2017-02-28 00:00:00 Completed [facility] TDAP 2017-02-28 00:00:00 Completed [facility] TDAP 2017-02-28 00:00:00 Completed [facility] TDAP 2017-02-28 00:00:00 Completed [facility] TDAP 2017-02-28 00:00:00 Completed [facility] TDAP 2017-02-28 00:00:00 Completed [facility] TDAP 2017-02-28 00:00:00 Completed [facility] TDAP 2017-02-28 00:00:00 Completed [facility] TDAP 2017-02-28 00:00:00 Completed [facility] TDAP 2017-02-28 00:00:00 Completed [facility] TDAP 2017-02-28 00:00:00 Completed [facility] TDAP 2017-02-28 00:00:00 Completed [facility] TDAP 2017-02-28 00:00:00 Completed [facility] TDAP 2017-02-28 00:00:00 Completed [facility] TDAP 2017-02-28 00:00:00 Completed [facility] TDAP 2017-02-28 00:00:00 Completed [facility] TDAP 2017-02-28 00:00:00 Completed [facility] TDAP 2017-02-28 00:00:00 Completed [facility] TDAP 2017-02-28 00:00:00 Completed [facility] TDAP 2017-02-28 00:00:00 Completed [facility] TDAP 2017-02-28 00:00:00 Completed [facility] TDAP 2017-02-28 00:00:00 Completed [facility] TDAP 2017-02-28 00:00:00 Completed [facility] TDAP 2017-02-28 00:00:00 Completed [facility] TDAP 2017-02-28 00:00:00 Completed [facility] TDAP 2017-02-28 00:00:00 Completed [facility] TDAP 2017-02-28 00:00:00 Completed [facility] TDAP 2017-02-28 00:00:00 Completed [facility] TDAP 2017-02-28 00:00:00 Completed [facility] TDAP 2017-02-28 00:00:00 Completed [facility] TDAP 2017-02-28 00:00:00 Completed [facility] TDAP 2017-02-28 00:00:00 Completed [facility] TDAP 2017-02-28 00:00:00 Completed [facility] TDAP 2017-02-28 00:00:00 Completed [facility] TDAP 2017-02-28 00:00:00 Completed [facility] TDAP 2017-02-28 00:00:00 Completed [facility] TDAP 2017-02-28 00:00:00 Completed [facility] TDAP 2017-02-28 00:00:00 Completed [facility] TDAP 2017-02-28 00:00:00 Completed [facility] TDAP 2017-02-28 00:00:00 Completed [facility] TDAP 2017-02-28 00:00:00 Completed [facility] TDAP 2017-02-28 00:00:00 Completed [facility] TDAP 2017-02-28 00:00:00 Completed [facility] TDAP 2017-02-28 00:00:00 Completed [facility] TDAP 2017-02-28 00:00:00 Completed [facility] TDAP 2017-02-28 00:00:00 Completed [facility] TDAP 2017-02-28 00:00:00 Completed [facility] TDAP 2017-02-28 00:00:00 Completed [facility] TDAP 2017-02-28 00:00:00 Completed [facility] TDAP 2017-02-28 00:00:00 Completed [facility] TDAP 2017-02-28 00:00:00 Completed [facility] TDAP 2017-02-28 00:00:00 Completed [facility] TDAP 2017-02-28 00:00:00 Completed [facility] TDAP 2017-02-28 00:00:00 Completed [facility] TDAP 2017-02-28 00:00:00 Completed [facility] TDAP 2017-02-28 00:00:00 Completed [facility] TDAP 2017-02-28 00:00:00 Completed [facility] TDAP 2017-02-28 00:00:00 Completed [facility] TDAP 2017-02-28 00:00:00 Completed [facility] TDAP 2017-02-28 00:00:00 Completed [facility] TDAP 2017-02-28 00:00:00 Completed [facility] TDAP 2017-02-28 00:00:00 Completed [facility] TDAP 2017-02-28 00:00:00 Completed [facility] TDAP 2017-02-28 00:00:00 Completed [facility] TDAP 2017-02-28 00:00:00 Completed [facility] TDAP 2017-02-28 00:00:00 Completed [facility] TDAP 2017-02-28 00:00:00 Completed [facility] TDAP 2017-02-28 00:00:00 Completed [facility] TDAP 2017-02-28 00:00:00 Completed [facility] TDAP 2017-02-28 00:00:00 Completed [facility] TDAP 2017-02-28 00:00:00 Completed [facility] TDAP 2017-02-28 00:00:00 Completed [facility] TDAP 2017-02-28 00:00:00 Completed [facility] TDAP 2017-02-28 00:00:00 Completed [facility] TDAP 2017-02-28 00:00:00 Completed [facility] TDAP 2017-02-28 00:00:00 Completed [facility] TDAP 2017-02-28 00:00:00 Completed [facility] TDAP 2017-02-28 00:00:00 Completed [facility] TDAP 2017-02-28 00:00:00 Completed [facility] TDAP 2017-02-28 00:00:00 Completed [facility] TDAP 2017-02-28 00:00:00 Completed [facility] TDAP 2017-02-28 00:00:00 Completed [facility] TDAP 2017-02-28 00:00:00 Completed [facility] TDAP 2017-02-28 00:00:00 Completed [facility] TDAP 2017-02-28 00:00:00 Completed [facility] TDAP 2017-02-28 00:00:00 Completed [facility] TDAP 2017-02-28 00:00:00 Completed [facility] TDAP 2017-02-28 00:00:00 Completed [facility] TDAP 2017-02-28 00:00:00 Completed [facility] TDAP 2017-02-28 00:00:00 Completed [facility] TDAP 2017-02-28 00:00:00 Completed [facility] TDAP 2017-02-28 00:00:00 Completed [facility] TDAP 2017-02-28 00:00:00 Completed [facility] TDAP 2017-02-28 00:00:00 Completed [facility] TDAP 2017-02-28 00:00:00 Completed [facility] TDAP 2017-02-28 00:00:00 Completed [facility] TDAP 2017-02-28 00:00:00 Completed [facility] TDAP 2017-02-28 00:00:00 Completed [facility] TDAP 2017-02-28 00:00:00 Completed [facility] TDAP 2017-02-28 00:00:00 Completed [facility] TDAP 2017-02-28 00:00:00 Completed [facility] TDAP 2017-02-28 00:00:00 Completed [facility] TDAP 2012-08-26 00:00:00 Completed [facility] TDAP 2012-08-26 00:00:00 Completed [facility] TDAP 2012-08-26 00:00:00 Completed [facility] TDAP 2012-08-26 00:00:00 Completed [facility] TDAP 2012-08-26 00:00:00 Completed [facility] TDAP 2012-08-26 00:00:00 Completed [facility] TDAP 2012-08-26 00:00:00 Completed [facility] TDAP 2012-08-26 00:00:00 Completed [facility] TDAP 2012-08-26 00:00:00 Completed [facility] TDAP 2012-08-26 00:00:00 Completed [facility] TDAP 2012-08-26 00:00:00 Completed [facility] TDAP 2012-08-26 00:00:00 Completed [facility] TDAP 2012-08-26 00:00:00 Completed [facility] TDAP 2012-08-26 00:00:00 Completed [facility] TDAP 2012-08-26 00:00:00 Completed [facility] TDAP 2012-08-26 00:00:00 Completed [facility] TDAP 2012-08-26 00:00:00 Completed [facility] TDAP 2012-08-26 00:00:00 Completed [facility] TDAP 2012-08-26 00:00:00 Completed [facility] TDAP 2012-08-26 00:00:00 Completed [facility] TDAP 2012-08-26 00:00:00 Completed [facility] [facility] TDAP 2012-08-26 00:00:00 Completed [facility] TDAP 2012-08-26 00:00:00 Completed [facility] TDAP 2012-08-26 00:00:00 Completed [facility] TDAP 2012-08-26 00:00:00 Completed [facility] TDAP 2012-08-26 00:00:00 Completed [facility] TDAP 2012-08-26 00:00:00 Completed [facility] TDAP 2012-08-26 00:00:00 Completed [facility] TDAP 2012-08-26 00:00:00 Completed [facility] TDAP 2012-08-26 00:00:00 Completed [facility] TDAP 2012-08-26 00:00:00 Completed [facility] TDAP 2012-08-26 00:00:00 Completed [facility] TDAP 2012-08-26 00:00:00 Completed [facility] TDAP 2012-08-26 00:00:00 Completed [facility] TDAP 2012-08-26 00:00:00 Completed [facility] TDAP 2012-08-26 00:00:00 Completed [facility] TDAP 2012-08-26 00:00:00 Completed [facility] TDAP 2012-08-26 00:00:00 Completed [facility] TDAP 2012-08-26 00:00:00 Completed [facility] TDAP 2012-08-26 00:00:00 Completed [facility] TDAP 2012-08-26 00:00:00 Completed [facility] TDAP 2012-08-26 00:00:00 Completed [facility] TDAP 2012-08-26 00:00:00 Completed [facility] TDAP 2012-08-26 00:00:00 Completed [facility] TDAP 2012-08-26 00:00:00 Completed [facility] TDAP 2012-08-26 00:00:00 Completed [facility] TDAP 2012-08-26 00:00:00 Completed [facility] TDAP 2012-08-26 00:00:00 Completed [facility] TDAP 2012-08-26 00:00:00 Completed [facility] TDAP 2012-08-26 00:00:00 Completed [facility] TDAP 2012-08-26 00:00:00 Completed [facility] TDAP 2012-08-26 00:00:00 Completed [facility] TDAP 2012-08-26 00:00:00 Completed [facility] TDAP 2012-08-26 00:00:00 Completed [facility] TDAP 2012-08-26 00:00:00 Completed [facility] TDAP 2012-08-26 00:00:00 Completed [facility] TDAP 2012-08-26 00:00:00 Completed [facility] TDAP 2012-08-26 00:00:00 Completed [facility] TDAP 2012-08-26 00:00:00 Completed [facility] TDAP 2012-08-26 00:00:00 Completed [facility] TDAP 2012-08-26 00:00:00 Completed [facility] TDAP 2012-08-26 00:00:00 Completed [facility] TDAP 2012-08-26 00:00:00 Completed [facility] TDAP 2012-08-26 00:00:00 Completed [facility] TDAP 2012-08-26 00:00:00 Completed [facility] TDAP 2012-08-26 00:00:00 Completed [facility] TDAP 2012-08-26 00:00:00 Completed [facility] TDAP 2012-08-26 00:00:00 Completed [facility] TDAP 2012-08-26 00:00:00 Completed [facility] TDAP 2012-08-26 00:00:00 Completed [facility] TDAP 2012-08-26 00:00:00 Completed [facility] TDAP 2012-08-26 00:00:00 Completed [facility] TDAP 2012-08-26 00:00:00 Completed [facility] TDAP 2012-08-26 00:00:00 Completed [facility] TDAP 2012-08-26 00:00:00 Completed [facility] TDAP 2012-08-26 00:00:00 Completed [facility] TDAP 2012-08-26 00:00:00 Completed [facility] TDAP 2012-08-26 00:00:00 Completed [facility] TDAP 2012-08-26 00:00:00 Completed [facility] TDAP 2012-08-26 00:00:00 Completed [facility] TDAP 2012-08-26 00:00:00 Completed [facility] TDAP 2012-08-26 00:00:00 Completed [facility] TDAP 2012-08-26 00:00:00 Completed [facility] TDAP 2012-08-26 00:00:00 Completed [facility] TDAP 2012-08-26 00:00:00 Completed [facility] TDAP 2012-08-26 00:00:00 Completed [facility] TDAP 2012-08-26 00:00:00 Completed [facility] TDAP 2012-08-26 00:00:00 Completed [facility] TDAP 2012-08-26 00:00:00 Completed [facility] TDAP 2012-08-26 00:00:00 Completed [facility] TDAP 2012-08-26 00:00:00 Completed [facility] TDAP 2012-08-26 00:00:00 Completed [facility] TDAP 2012-08-26 00:00:00 Completed [facility] TDAP 2012-08-26 00:00:00 Completed [facility] TDAP 2012-08-26 00:00:00 Completed [facility] TDAP 2012-08-26 00:00:00 Completed [facility] TDAP 2012-08-26 00:00:00 Completed [facility] TDAP 2012-08-26 00:00:00 Completed [facility] TDAP 2012-08-26 00:00:00 Completed [facility] TDAP 2012-08-26 00:00:00 Completed [facility] TDAP 2012-08-26 00:00:00 Completed [facility] TDAP 2012-08-26 00:00:00 Completed [facility] TDAP 2012-08-26 00:00:00 Completed [facility] TDAP 2012-08-26 00:00:00 Completed [facility] TDAP 2012-08-26 00:00:00 Completed [facility] TDAP 2012-08-26 00:00:00 Completed [facility] TDAP 2012-08-26 00:00:00 Completed [facility] TDAP 2012-08-26 00:00:00 Completed [facility] TDAP 2012-08-26 00:00:00 Completed [facility] TDAP 2012-08-26 00:00:00 Completed [facility] TDAP 2012-08-26 00:00:00 Completed [facility] TDAP 2012-08-26 00:00:00 Completed [facility] TDAP 2012-08-26 00:00:00 Completed [facility] TDAP 2012-08-26 00:00:00 Completed [facility] TDAP 2012-08-26 00:00:00 Completed [facility] TDAP 2012-08-26 00:00:00 Completed [facility] TDAP 2012-08-26 00:00:00 Completed [facility] TDAP 2012-08-26 00:00:00 Completed [facility] TDAP 2012-08-26 00:00:00 Completed [facility] TDAP 2012-08-26 00:00:00 Completed [facility] TDAP 2012-08-26 00:00:00 Completed [facility] TDAP 2012-08-26 00:00:00 Completed [facility] TDAP 2012-08-26 00:00:00 Completed [facility] TDAP 2012-08-26 00:00:00 Completed [facility] TDAP 2012-08-26 00:00:00 Completed [facility] TDAP 2012-08-26 00:00:00 Completed [facility] TDAP 2012-08-26 00:00:00 Completed [facility] TDAP 2012-08-26 00:00:00 Completed [facility] TDAP 2012-08-26 00:00:00 Completed [facility] TDAP 2012-08-26 00:00:00 Completed [facility] TDAP 2012-08-26 00:00:00 Completed [facility] TDAP 2012-08-26 00:00:00 Completed [facility] TDAP 2012-08-26 00:00:00 Completed [facility] TDAP 2012-08-26 00:00:00 Completed [facility] TDAP 2012-08-26 00:00:00 Completed [facility] TDAP 2012-08-26 00:00:00 Completed [facility] TDAP 2012-08-26 00:00:00 Completed [facility] TDAP 2012-08-26 00:00:00 Completed [facility] TDAP 2012-08-26 00:00:00 Completed [facility] TDAP Unknown Completed [facility] MMR Unknown Completed [facility] Influenza Virus Vaccine Quad IM 3+ YRS Unknown Completed [facility] Pneumococcal Polysaccharide, PPSV23 (PNEUMOVAX) Unknown [facility] Influ[facility] Vaccine Unknown Completed [facility] TDAP Unknown Completed [facility] MMR Unknown Completed [facility] Influenza Virus Vaccine Quad IM 3+ YRS Unknown Completed [facility] Pneumococcal Polysaccharide, PPSV23 (PNEUMOVAX) Unknown [facility] Influenza Virus Vaccine Unknown Completed [facility] TDAP Unknown Completed [facility] MMR Unknown Completed [facility] Influenza Virus Vaccine Quad IM 3+ YRS Unknown Completed [facility] Pneumococcal Polysaccharide, PPSV23 (PNEUMOVAX) Unknown [facility] Influenza Virus Vaccine Unknown Completed [facility] TDAP Unknown Completed [facility] MMR Unknown Completed [facility] Influenza Virus Vaccine Quad IM 3+ YRS Unknown Completed [facility] Pneumococcal Polysaccharide, PPSV23 (PNEUMOVAX) Unknown Completed [facility] Influenza Virus Vaccine Unknown Completed [facility] TDAP Unknown Completed [facility] MMR Unknown Completed [facility] Influenza Virus Vaccine Quad IM 3+ YRS Unknown Completed [facility] Pneumococcal Polysaccharide, PPSV23 (PNEUMOVAX) Unknown Completed [facility] Influenza Virus Vaccine Unknown Completed [facility] TDAP Unknown Completed [facility] MMR Unknown Completed [facility] Influenza Virus Vaccine Quad IM 3+ YRS Unknown Completed [facility] Pneumococcal Polysaccharide, PPSV23 (PNEUMOVAX) Unknown Completed [facility] Influenza Virus Vaccine Unknown Completed [facility] TDAP Unknown Completed [facility] MMR Unknown Completed [facility] Influenza Virus Vaccine Quad IM 3+ YRS Unknown Completed [facility] Pneumococcal Polysaccharide, PPSV23 (PNEUMOVAX) Unknown [facility] Influenza Virus Vaccine Unknown Completed [facility] TDAP Unknown Completed [facility] MMR Unknown Completed [facility] Influenza Virus Vaccine Quad IM 3+ YRS Unknown Completed [facility] Pneumococcal Polysaccharide, PPSV23 (PNEUMOVAX) Unknown [facility] Influenza Virus Vaccine Unknown Completed [facility] TDAP Unknown Completed [facility] MMR Unknown Completed [facility] Influenza Virus Vaccine Quad IM 3+ YRS Unknown Completed [facility] Pneumococcal Polysaccharide, PPSV23 (PNEUMOVAX) Unknown [facility] Influenza Virus Vaccine Unknown Completed [facility] TDAP Unknown Completed [facility] MMR Unknown Completed [facility] Influenza Virus Vaccine Quad IM 3+ YRS Unknown Completed [facility] Pneumococcal Polysaccharide, PPSV23 (PNEUMOVAX) Unknown [facility] Influenza Virus Vaccine Unknown Completed [facility] TDAP Unknown Completed [facility] MMR Unknown Completed [facility] Influenza Virus Vaccine Quad IM 3+ YRS Unknown Completed [facility] Pneumococcal Polysaccharide, PPSV23 (PNEUMOVAX) Unknown [facility] Influenza Virus Vaccine Unknown Completed [facility] TDAP Unknown Completed [facility] MMR Unknown Completed [facility] Influenza Virus Vaccine Quad IM 3+ YRS Unknown Completed [facility] Pneumococcal Polysaccharide, PPSV23 (PNEUMOVAX) Unknown Completed [facility] TDAP Unknown Completed [facility] MMR Unknown Completed [facility] Influenza Virus Vaccine Quad IM 3+ YRS Unknown Completed [facility] Pneumococcal Polysaccharide, PPSV23 (PNEUMOVAX) Unknown Completed [facility] TDAP Unknown Completed [facility] MMR Unknown Completed [facility] Influenza Virus Vaccine Quad IM 3+ YRS Unknown Completed [facility] Pneumococcal Polysaccharide, PPSV23 (PNEUMOVAX) Unknown Completed [facility] TDAP Unknown Completed [facility] MMR Unknown Completed [facility] Influenza Virus Vaccine Quad IM 3+ YRS Unknown Completed [facility] Pneumococcal Polysaccharide, PPSV23 (PNEUMOVAX) Unknown Completed [facility] TDAP Unknown Completed [facility] MMR Unknown Completed [facility] Influenza Virus Vaccine Quad IM 3+ YRS Unknown Completed [facility] Pneumococcal Polysaccharide, PPSV23 (PNEUMOVAX) Unknown [facility] TDAP Unknown Completed [facility] MMR Unknown Completed [facility] Influenza Virus Vaccine Quad IM 3+ YRS Unknown Completed [facility] Pneumococcal Polysaccharide, PPSV23 (PNEUMOVAX) Unknown Completed [facility] TDAP Unknown Completed [facility] MMR Unknown Completed [facility] Influenza Virus Vaccine Quad IM 3+ YRS Unknown Completed [facility] Pneumococcal Polysaccharide, PPSV23 (PNEUMOVAX) Unknown [facility] TDAP Unknown Completed [facility] MMR Unknown Completed [facility] Influenza Virus Vaccine Quad IM 3+ YRS Unknown Completed [facility] Pneumococcal Polysaccharide, PPSV23 (PNEUMOVAX) Unknown [facility] TDAP Unknown Completed [facility] MMR Unknown Completed [facility] Influenza Virus Vaccine Quad IM 3+ YRS Unknown Completed [facility] Pneumococcal Polysaccharide, PPSV23 (PNEUMOVAX) Unknown Completed [facility] TDAP Unknown Completed [facility] MMR Unknown Completed [facility] Influenza Virus Vaccine Quad IM 3+ YRS Unknown Completed [facility] Pneumococcal Polysaccharide, PPSV23 (PNEUMOVAX) Unknown Completed [facility] TDAP Unknown Completed [facility] MMR Unknown Completed [facility] Influenza Virus Vaccine Quad IM 3+ YRS Unknown Completed [facility] Pneumococcal Polysaccharide, PPSV23 (PNEUMOVAX) Unknown Completed [facility] TDAP Unknown Completed [facility] MMR Unknown Completed [facility] Influenza Virus Vaccine Quad IM 3+ YRS Unknown Completed [facility] Pneumococcal Polysaccharide, PPSV23 (PNEUMOVAX) Unknown Completed [facility] TDAP Unknown Completed [facility] MMR Unknown Completed [facility] Influenza Virus Vaccine Quad IM 3+ YRS Unknown Completed [facility] TDAP Unknown Completed [facility] MMR Unknown Completed [facility] Influenza Virus Vaccine Quad IM 3+ YRS Unknown Completed [facility] TDAP Unknown Completed [facility] MMR Unknown Completed [facility] Influenza Virus Vaccine Quad IM 3+ YRS Unknown Completed [facility] TDAP Unknown Completed [facility] MMR Unknown Completed [facility] Influenza Virus Vaccine Quad IM 3+ YRS Unknown Completed [facility] TDAP Unknown Completed [facility] MMR Unknown Completed [facility] Influenza Virus Vaccine Quad IM 3+ YRS Unknown Completed [facility] Pneumococcal Polysaccharide, PPSV23 (PNEUMOVAX) Unknown Completed [facility] Influenza Virus Vaccine Unknown Completed [facility] TDAP Unknown Completed [facility] MMR Unknown Completed [facility] Influenza Virus Vaccine Quad IM 3+ YRS Unknown Completed [facility] Pneumococcal Polysaccharide, PPSV23 (PNEUMOVAX) Unknown Completed [facility] Influenza Virus Vaccine Unknown Completed [facility] TDAP Unknown Completed [facility] MMR Unknown Completed [facility] Influenza Virus Vaccine Quad IM 3+ YRS Unknown Completed [facility] Pneumococcal Polysaccharide, PPSV23 (PNEUMOVAX) Unknown Completed [facility] Influenza Virus Vaccine Unknown Completed [facility] TDAP Unknown Completed [facility] MMR Unknown Completed [facility] Influenza Virus Vaccine Quad IM 3+ YRS Unknown Completed [facility] Pneumococcal Polysaccharide, PPSV23 (PNEUMOVAX) Unknown Completed [facility] Influenza Virus Vaccine Unknown Completed [facility] TDAP Unknown Completed [facility] MMR Unknown Completed [facility] Influenza Virus Vaccine Quad IM 3+ YRS Unknown Completed [facility] Pneumococcal Polysaccharide, PPSV23 (PNEUMOVAX) Unknown Completed [facility] Influenza Virus Vaccine Unknown Completed [facility] Influenza Virus Vaccine Quad IM, Preserv and ABX Free 6 MO-64 YRS (FLUCELVAX) Unknown Completed [facility] TDAP Unknown Completed [facility] MMR Unknown Completed [facility] Influenza Virus Vaccine Quad IM 3+ YRS Unknown Completed [facility] Pneumococcal Polysaccharide, PPSV23 (PNEUMOVAX) Unknown Completed [facility] Influenza Virus Vaccine Unknown Completed [facility] Influenza Virus Vaccine Quad IM, Preserv and ABX Free 6 MO-64 YRS (FLUCELVAX) Unknown Completed [facility] TDAP Unknown Completed [facility] MMR Unknown Completed [facility] Influenza Virus Vaccine Quad IM 3+ YRS Unknown Completed [facility] Pneumococcal Polysaccharide, PPSV23 (PNEUMOVAX) Unknown Completed [facility] Influenza Virus Vaccine Unknown Completed [facility] TDAP Unknown Completed [facility] MMR Unknown Completed [facility] Influenza Virus Vaccine Quad IM 3+ YRS Unknown Completed [facility] Pneumococcal Polysaccharide, PPSV23 (PNEUMOVAX) Unknown Completed [facility] Influenza Virus Vaccine Unknown Completed [facility] Influenza Virus Vaccine Quad IM, Preserv and ABX Free 6 MO-64 YRS (FLUCELVAX) Unknown Completed [facility] TDAP Unknown Completed [facility] MMR Unknown Completed [facility] Influenza Virus Vaccine Quad IM 3+ YRS Unknown Completed [facility] Pneumococcal Polysaccharide, PPSV23 (PNEUMOVAX) Unknown Completed [facility] Influenza Virus Vaccine Unknown Completed [facility] Influenza Virus Vaccine Quad IM, Preserv and ABX Free 6 MO-64 YRS (FLUCELVAX) Unknown Completed [facility] TDAP Unknown Completed [facility] MMR Unknown Completed [facility] Influenza Virus Vaccine Quad IM 3+ YRS Unknown Completed [facility] Pneumococcal Polysaccharide, PPSV23 (PNEUMOVAX) Unknown Completed [facility] Influenza Virus Vaccine Unknown Completed [facility] Influenza Virus Vaccine Quad IM, Preserv and ABX Free 6 MO-64 YRS (FLUCELVAX) Unknown Completed [facility] MMR Unknown Completed [facility] Influenza Virus Vaccine Unknown Completed [facility] Influenza Virus Vaccine Quad IM, Preserv and ABX Free 6 MO-64 YRS (FLUCELVAX) Unknown Completed [facility] TDAP Unknown Completed [facility] Influenza Virus Vaccine Quad IM 3+ YRS Unknown Completed [facility] Pneumococcal Polysaccharide, PPSV23 (PNEUMOVAX) Unknown Completed [facility] TDAP Unknown Completed [facility] MMR Unknown Completed [facility] Influenza Virus Vaccine Quad IM 3+ YRS Unknown Completed [facility] Pneumococcal Polysaccharide, PPSV23 (PNEUMOVAX) Unknown Completed [facility] Influenza Virus Vaccine Unknown Completed [facility] TDAP Unknown Completed [facility] MMR Unknown Completed [facility] Influenza Virus Vaccine Quad IM 3+ YRS Unknown Completed [facility] Pneumococcal Polysaccharide, PPSV23 (PNEUMOVAX) Unknown Completed [facility] Influenza Virus Vaccine Unknown Completed [facility] Influenza Virus Vaccine Quad IM, Preserv and ABX Free 6 MO-64 YRS (FLUCELVAX) Unknown Completed [facility] TDAP Unknown Completed [facility] MMR Unknown Completed [facility] Influenza Virus Vaccine Quad IM 3+ YRS Unknown Completed [facility] Pneumococcal Polysaccharide, PPSV23 (PNEUMOVAX) Unknown Completed [facility] Influenza Virus Vaccine Unknown Completed [facility] Influenza Virus Vaccine Quad IM, Preserv and ABX Free 6 MO-64 YRS (FLUCELVAX) Unknown Completed [facility] MMR Unknown Completed [facility] Influenza Virus Vaccine Unknown Completed [facility] Influenza Virus Vaccine Quad IM, Preserv and ABX Free 6 MO-64 YRS (FLUCELVAX) Unknown Completed [facility] TDAP Unknown Completed [facility] Influenza Virus Vaccine Quad IM 3+ YRS Unknown Completed [facility] Pneumococcal Polysaccharide, PPSV23 (PNEUMOVAX) Unknown Completed [facility] TDAP Unknown Completed [facility] MMR Unknown Completed [facility] Influenza Virus Vaccine Quad IM 3+ YRS Unknown Completed [facility] Pneumococcal Polysaccharide, PPSV23 (PNEUMOVAX) Unknown Completed [facility] Influenza Virus Vaccine Unknown Completed [facility] Influenza Virus Vaccine Quad IM, Preserv and ABX Free 6 MO-64 YRS (FLUCELVAX) Unknown Completed [facility] TDAP Unknown Completed [facility] MMR Unknown Completed [facility] Influenza Virus Vaccine Quad IM 3+ YRS Unknown Completed [facility] Pneumococcal Polysaccharide, PPSV23 (PNEUMOVAX) Unknown Completed [facility] Influenza Virus Vaccine Unknown Completed [facility] Influenza Virus Vaccine Quad IM, Preserv and ABX Free 6 MO-64 YRS (FLUCELVAX) Unknown Completed [facility] TDAP Unknown Completed [facility] MMR Unknown Completed [facility] Influenza Virus Vaccine Quad IM 3+ YRS Unknown Completed [facility] Pneumococcal Polysaccharide, PPSV23 (PNEUMOVAX) Unknown Completed [facility] Influenza Virus Vaccine Unknown Completed [facility] Influenza Virus Vaccine Quad IM, Preserv and ABX Free 6 MO-64 YRS (FLUCELVAX) Unknown Completed [facility] TDAP Unknown Completed [facility] MMR Unknown Completed [facility] Influenza Virus Vaccine Quad IM 3+ YRS Unknown Completed [facility] Pneumococcal Polysaccharide, PPSV23 (PNEUMOVAX) Unknown Completed [facility] Influenza Virus Vaccine Unknown Completed [facility] Influenza Virus Vaccine Quad IM, Preserv and ABX Free 6 MO-64 YRS (FLUCELVAX) Unknown Completed [facility] MMR Unknown Completed [facility] Influenza Virus Vaccine Unknown Completed [facility] Influenza Virus Vaccine Quad IM, Preserv and ABX Free 6 MO-64 YRS (FLUCELVAX) Unknown Completed [facility] TDAP Unknown Completed [facility] Influenza Virus Vaccine Quad IM 3+ YRS Unknown Completed [facility] Pneumococcal Polysaccharide, PPSV23 (PNEUMOVAX) Unknown Completed [facility] TDAP Unknown Completed [facility] MMR Unknown Completed [facility] Influenza Virus Vaccine Quad IM 3+ YRS Unknown Completed [facility] Pneumococcal Polysaccharide, PPSV23 (PNEUMOVAX) Unknown Completed [facility] Influenza Virus Vaccine Unknown Completed [facility] Influenza Virus Vaccine Quad IM, Preserv and ABX Free 6 MO-64 YRS (FLUCELVAX) Unknown Completed [facility] TDAP Unknown Completed [facility] MMR Unknown Completed [facility] Influenza Virus Vaccine Quad IM 3+ YRS Unknown Completed [facility] Pneumococcal Polysaccharide, PPSV23 (PNEUMOVAX) Unknown Completed [facility] Influenza Virus Vaccine Unknown Completed [facility] Influenza Virus Vaccine Quad IM, Preserv and ABX Free 6 MO-64 YRS (FLUCELVAX) Unknown Completed [facility] TDAP Unknown Completed [facility] MMR Unknown Completed [facility] Influenza Virus Vaccine Quad IM 3+ YRS Unknown Completed [facility] Pneumococcal Polysaccharide, PPSV23 (PNEUMOVAX) Unknown Completed [facility] Influenza Virus Vaccine Unknown Completed [facility] Influenza Virus Vaccine Quad IM, Preserv and ABX Free 6 MO-64 YRS (FLUCELVAX) Unknown Completed [facility] TDAP Unknown Completed [facility] MMR Unknown Completed [facility] Influenza Virus Vaccine Quad IM 3+ YRS Unknown Completed [facility] Pneumococcal Polysaccharide, PPSV23 (PNEUMOVAX) Unknown Completed [facility] Influenza Virus Vaccine Unknown Completed [facility] Influenza Virus Vaccine Quad IM, Preserv and ABX Free 6 MO-64 YRS (FLUCELVAX) Unknown Completed [facility] TDAP Unknown Completed [facility] MMR Unknown Completed [facility] Influenza Virus Vaccine Quad IM 3+ YRS Unknown Completed [facility] Pneumococcal Polysaccharide, PPSV23 (PNEUMOVAX) Unknown Completed [facility] Influenza Virus Vaccine Unknown Completed [facility] Influenza Virus Vaccine Quad IM, Preserv and ABX Free 6 MO-64 YRS (FLUCELVAX) Unknown Completed [facility] MMR Unknown Completed [facility] Influenza Virus Vaccine Unknown Completed [facility] Influenza Virus Vaccine Quad IM, Preserv and ABX Free 6 MO-64 YRS (FLUCELVAX) Unknown Completed [facility] TDAP Unknown Completed [facility] Influenza Virus Vaccine Quad IM 3+ YRS Unknown Completed [facility] Pneumococcal Polysaccharide, PPSV23 (PNEUMOVAX) Unknown Completed [facility] TDAP Unknown Completed [facility] MMR Unknown Completed [facility] Influenza Virus Vaccine Quad IM 3+ YRS Unknown Completed [facility] Pneumococcal Polysaccharide, PPSV23 (PNEUMOVAX) Unknown Completed [facility] Influenza Virus Vaccine Unknown Completed [facility] Influenza Virus Vaccine Quad IM, Preserv and ABX Free 6 MO-64 YRS (FLUCELVAX) Unknown Completed [facility] TDAP Unknown Completed [facility] MMR Unknown Completed [facility] Influenza Virus Vaccine Quad IM 3+ YRS Unknown Completed [facility] Pneumococcal Polysaccharide, PPSV23 (PNEUMOVAX) Unknown Completed [facility] Influenza Virus Vaccine Unknown Completed [facility] Influenza Virus Vaccine Quad IM, Preserv and ABX Free 6 MO-64 YRS (FLUCELVAX) Unknown Completed [facility] TDAP Unknown Completed [facility] MMR Unknown Completed [facility] Influenza Virus Vaccine Quad IM 3+ YRS Unknown Completed [facility] Pneumococcal Polysaccharide, PPSV23 (PNEUMOVAX) Unknown Completed [facility] Influenza Virus Vaccine Unknown Completed [facility] Influenza Virus Vaccine Quad IM, Preserv and ABX Free 6 MO-64 YRS (FLUCELVAX) Unknown Completed [facility] TDAP Unknown Completed [facility] MMR Unknown Completed [facility] Influenza Virus Vaccine Quad IM 3+ YRS Unknown Completed [facility] Pneumococcal Polysaccharide, PPSV23 (PNEUMOVAX) Unknown [facility] Influenza Virus Vaccine Unknown Completed [facility] Influenza Virus Vaccine Quad IM, Preserv and ABX Free 6 MO-64 YRS (FLUCELVAX) Unknown Completed [facility] TDAP Unknown Completed [facility] MMR Unknown Completed [facility] Influenza Virus Vaccine Quad IM 3+ YRS Unknown Completed [facility] Pneumococcal Polysaccharide, PPSV23 (PNEUMOVAX) Unknown Completed [facility] Influenza Virus Vaccine Unknown Completed [facility] Influenza Virus Vaccine Quad IM, Preserv and ABX Free 6 MO-64 YRS (FLUCELVAX) Unknown Completed [facility] MMR Unknown Completed [facility] Influenza Virus Vaccine Unknown Completed [facility] Influenza Virus Vaccine Quad IM, Preserv and ABX Free 6 MO-64 YRS (FLUCELVAX) Unknown Completed [facility] TDAP Unknown Completed [facility] Influenza Virus Vaccine Quad IM 3+ YRS Unknown Completed [facility] Pneumococcal Polysaccharide, PPSV23 (PNEUMOVAX) Unknown Completed [facility] TDAP Unknown Completed [facility] MMR Unknown Completed [facility] Influenza Virus Vaccine Quad IM 3+ YRS Unknown Completed [facility] Pneumococcal Polysaccharide, PPSV23 (PNEUMOVAX) Unknown Completed [facility] Influenza Virus Vaccine Unknown Completed [facility] Influenza Virus Vaccine Quad IM, Preserv and ABX Free 6 MO-64 YRS (FLUCELVAX) Unknown Completed [facility] TDAP Unknown Completed [facility] MMR Unknown Completed [facility] Influenza Virus Vaccine Quad IM 3+ YRS Unknown Completed [facility] Pneumococcal Polysaccharide, PPSV23 (PNEUMOVAX) Unknown Completed [facility] Influenza Virus Vaccine Unknown Completed [facility] Influenza Virus Vaccine Quad IM, Preserv and ABX Free 6 MO-64 YRS (FLUCELVAX) Unknown Completed [facility] MMR Unknown Completed [facility] Influenza Virus Vaccine Unknown Completed [facility] Influenza Virus Vaccine Quad IM, Preserv and ABX Free 6 MO-64 YRS (FLUCELVAX) Unknown Completed [facility] TDAP Unknown Completed [facility] Influenza Virus Vaccine Quad IM 3+ YRS Unknown Completed [facility] Pneumococcal Polysaccharide, PPSV23 (PNEUMOVAX) Unknown Completed [facility] TDAP Unknown Completed [facility] MMR Unknown Completed [facility] Influenza Virus Vaccine Quad IM 3+ YRS Unknown Completed [facility] Pneumococcal Polysaccharide, PPSV23 (PNEUMOVAX) Unknown Completed [facility] Influenza Virus Vaccine Unknown Completed [facility] Influenza Virus Vaccine Quad IM, Preserv and ABX Free 6 MO-64 YRS (FLUCELVAX) Unknown Completed [facility] TDAP Unknown Completed [facility] MMR Unknown Completed [facility] Influenza Virus Vaccine Quad IM 3+ YRS Unknown Completed [facility] Pneumococcal Polysaccharide, PPSV23 (PNEUMOVAX) Unknown Completed [facility] Influenza Virus Vaccine Unknown Completed [facility] Influenza Virus Vaccine Quad IM, Preserv and ABX Free 6 MO-64 YRS (FLUCELVAX) Unknown Completed [facility] TDAP Unknown Completed [facility] MMR Unknown Completed [facility] Influenza Virus Vaccine Quad IM 3+ YRS Unknown Completed [facility] Pneumococcal Polysaccharide, PPSV23 (PNEUMOVAX) Unknown Completed [facility] Influenza Virus Vaccine Unknown Completed [facility] Influenza Virus Vaccine Quad IM, Preserv and ABX Free 6 MO-64 YRS (FLUCELVAX) Unknown Completed [facility] TDAP Unknown Completed [facility] MMR Unknown Completed [facility] Influenza Virus Vaccine Quad IM 3+ YRS Unknown Completed [facility] Pneumococcal Polysaccharide, PPSV23 (PNEUMOVAX) Unknown Completed [facility] Influenza Virus Vaccine Unknown Completed [facility] Influenza Virus Vaccine Quad IM, Preserv and ABX Free 6 MO-64 YRS (FLUCELVAX) Unknown Completed [facility] MMR Unknown Completed [facility] Influenza Virus Vaccine Unknown Completed [facility] Influenza Virus Vaccine Quad IM, Preserv and ABX Free 6 MO-64 YRS (FLUCELVAX) Unknown Completed [facility] TDAP Unknown Completed [facility] Influenza Virus Vaccine Quad IM 3+ YRS Unknown Completed [facility] Pneumococcal Polysaccharide, PPSV23 (PNEUMOVAX) Unknown Completed [facility] TDAP Unknown Completed [facility] MMR Unknown Completed [facility] Influenza Virus Vaccine Quad IM 3+ YRS Unknown Completed [facility] Pneumococcal Polysaccharide, PPSV23 (PNEUMOVAX) Unknown Completed [facility] Influenza Virus Vaccine Unknown Completed [facility] Influenza Virus Vaccine Quad IM, Preserv and ABX Free 6 MO-64 YRS (FLUCELVAX) Unknown Completed [facility] TDAP Unknown Completed [facility] MMR Unknown Completed [facility] Influenza Virus Vaccine Quad IM 3+ YRS Unknown Completed [facility] Pneumococcal Polysaccharide, PPSV23 (PNEUMOVAX) Unknown Completed [facility] Influenza Virus Vaccine Unknown Completed [facility] Influenza Virus Vaccine Quad IM, Preserv and ABX Free 6 MO-64 YRS (FLUCELVAX) Unknown Completed [facility] TDAP Unknown Completed [facility] MMR Unknown Completed [facility] Influenza Virus Vaccine Quad IM 3+ YRS Unknown Completed [facility] Pneumococcal Polysaccharide, PPSV23 (PNEUMOVAX) Unknown Completed [facility] Influenza Virus Vaccine Unknown Completed [facility] Influenza Virus Vaccine Quad IM, Preserv and ABX Free 6 MO-64 YRS (FLUCELVAX) Unknown Completed [facility] TDAP Unknown Completed [facility] MMR Unknown Completed [facility] Influenza Virus Vaccine Quad IM 3+ YRS Unknown Completed [facility] Pneumococcal Polysaccharide, PPSV23 (PNEUMOVAX) Unknown Completed [facility] Influenza Virus Vaccine Unknown Completed [facility] Influenza Virus Vaccine Quad IM, Preserv and ABX Free 6 MO-64 YRS (FLUCELVAX) Unknown Completed [facility] TDAP Unknown Completed [facility] MMR Unknown Completed [facility] Influenza Virus Vaccine Quad IM 3+ YRS Unknown Completed [facility] Pneumococcal Polysaccharide, PPSV23 (PNEUMOVAX) Unknown Completed [facility] Influenza Virus Vaccine Unknown Completed [facility] Influenza Virus Vaccine Quad IM, Preserv and ABX Free 6 MO-64 YRS (FLUCELVAX) Unknown Completed [facility] TDAP Unknown Completed [facility] MMR Unknown Completed [facility] Influenza Virus Vaccine Quad IM 3+ YRS Unknown Completed [facility] Pneumococcal Polysaccharide, PPSV23 (PNEUMOVAX) Unknown [facility] Influenza Virus Vaccine Unknown Completed [facility] Influenza Virus Vaccine Quad IM, Preserv and ABX Free 6 MO-64 YRS (FLUCELVAX) Unknown Completed [facility] TDAP Unknown Completed [facility] MMR Unknown Completed [facility] Influenza Virus Vaccine Quad IM 3+ YRS Unknown Completed [facility] Pneumococcal Polysaccharide, PPSV23 (PNEUMOVAX) Unknown Completed [facility] Influenza Virus Vaccine Unknown Completed [facility] Influenza Virus Vaccine Quad IM, Preserv and ABX Free 6 MO-64 YRS (FLUCELVAX) Unknown Completed [facility] MMR Unknown Completed [facility] Influenza Virus Vaccine Unknown Completed [facility] Influenza Virus Vaccine Quad IM, Preserv and ABX Free 6 MO-64 YRS (FLUCELVAX) Unknown Completed [facility] TDAP Unknown Completed [facility] Influenza Virus Vaccine Quad IM 3+ YRS Unknown Completed [facility] Pneumococcal Polysaccharide, PPSV23 (PNEUMOVAX) Unknown Completed [facility] TDAP Unknown Completed [facility] MMR Unknown Completed [facility] Influenza Virus Vaccine Quad IM 3+ YRS Unknown Completed [facility] Pneumococcal Polysaccharide, PPSV23 (PNEUMOVAX) Unknown Completed [facility] Influenza Virus Vaccine Unknown Completed [facility] Influenza Virus Vaccine Quad IM, Preserv and ABX Free 6 MO-64 YRS (FLUCELVAX) Unknown Completed [facility] TDAP Unknown Completed [facility] MMR Unknown Completed [facility] Influenza Virus Vaccine Quad IM 3+ YRS Unknown Completed [facility] Pneumococcal Polysaccharide, PPSV23 (PNEUMOVAX) Unknown Completed [facility] Influenza Virus Vaccine Unknown Completed [facility] Influenza Virus Vaccine Quad IM, Preserv and ABX Free 6 MO-64 YRS (FLUCELVAX) Unknown Completed [facility] TDAP Unknown Completed [facility] MMR Unknown Completed [facility] Influenza Virus Vaccine Quad IM 3+ YRS Unknown Completed [facility] Pneumococcal Polysaccharide, PPSV23 (PNEUMOVAX) Unknown Completed [facility] Influenza Virus Vaccine Unknown Completed [facility] Influenza Virus Vaccine Quad IM, Preserv and ABX Free 6 MO-64 YRS (FLUCELVAX) Unknown Completed [facility] TDAP Unknown Completed [facility] MMR Unknown Completed [facility] Influenza Virus Vaccine Quad IM 3+ YRS Unknown Completed [facility] Pneumococcal Polysaccharide, PPSV23 (PNEUMOVAX) Unknown Completed [facility] Influenza Virus Vaccine Unknown Completed [facility] Influenza Virus Vaccine Quad IM, Preserv and ABX Free 6 MO-64 YRS (FLUCELVAX) Unknown Completed [facility] TDAP Unknown Completed [facility] MMR Unknown Completed [facility] Influenza Virus Vaccine Quad IM 3+ YRS Unknown Completed [facility] Pneumococcal Polysaccharide, PPSV23 (PNEUMOVAX) Unknown [facility] Influenza Virus Vaccine Unknown Completed [facility] Influenza Virus Vaccine Quad IM, Preserv and ABX Free 6 MO-64 YRS (FLUCELVAX) Unknown Completed [facility] TDAP Unknown Completed [facility] MMR Unknown Completed [facility] Influenza Virus Vaccine Quad IM 3+ YRS Unknown Completed [facility] Pneumococcal Polysaccharide, PPSV23 (PNEUMOVAX) Unknown Completed [facility] Influenza Virus Vaccine Unknown Completed [facility] Influenza Virus Vaccine Quad IM, Preserv and ABX Free 6 MO-64 YRS (FLUCELVAX) Unknown Completed [facility] TDAP Unknown Completed [facility] MMR Unknown Completed [facility] Influenza Virus Vaccine Quad IM 3+ YRS Unknown Completed [facility] Pneumococcal Polysaccharide, PPSV23 (PNEUMOVAX) Unknown Completed [facility] Influenza Virus Vaccine Unknown Completed [facility] Influenza Virus Vaccine Quad IM, Preserv and ABX Free 6 MO-64 YRS (FLUCELVAX) Unknown Completed [facility] TDAP Unknown Completed [facility] MMR Unknown Completed [facility] Influenza Virus Vaccine Quad IM 3+ YRS Unknown Completed [facility] Pneumococcal Polysaccharide, PPSV23 (PNEUMOVAX) Unknown Completed [facility] Influenza Virus Vaccine Unknown Completed [facility] Influenza Virus Vaccine Quad IM, Preserv and ABX Free 6 MO-64 YRS (FLUCELVAX) Unknown Completed [facility] TDAP Unknown Completed [facility] MMR Unknown Completed [facility] Influenza Virus Vaccine Quad IM 3+ YRS Unknown Completed [facility] Pneumococcal Polysaccharide, PPSV23 (PNEUMOVAX) Unknown [facility] Influenza Virus Vaccine Unknown Completed [facility] Influenza Virus Vaccine Quad IM, Preserv and ABX Free 6 MO-64 YRS (FLUCELVAX) Unknown Completed [facility] TDAP Unknown Completed [facility] MMR Unknown Completed [facility] Influenza Virus Vaccine Quad IM 3+ YRS Unknown Completed [facility] Pneumococcal Polysaccharide, PPSV23 (PNEUMOVAX) Unknown Completed [facility] Influenza Virus Vaccine Unknown Completed [facility] Influenza Virus Vaccine Quad IM, Preserv and ABX Free 6 MO-64 YRS (FLUCELVAX) Unknown Completed [facility] TDAP Unknown Completed [facility] MMR Unknown Completed [facility] Influenza Virus Vaccine Quad IM 3+ YRS Unknown Completed [facility] Pneumococcal Polysaccharide, PPSV23 (PNEUMOVAX) Unknown Completed [facility] Influenza Virus Vaccine Unknown Completed [facility] Influenza Virus Vaccine Quad IM, Preserv and ABX Free 6 MO-64 YRS (FLUCELVAX) Unknown Completed [facility] TDAP Unknown Completed [facility] MMR Unknown Completed [facility] Influenza Virus Vaccine Quad IM 3+ YRS Unknown Completed [facility] Pneumococcal Polysaccharide, PPSV23 (PNEUMOVAX) Unknown Completed [facility] Influenza Virus Vaccine Unknown Completed [facility] Influenza Virus Vaccine Quad IM, Preserv and ABX Free 6 MO-64 YRS (FLUCELVAX) Unknown Completed [facility] TDAP Unknown Completed [facility] MMR Unknown Completed [facility] Influenza Virus Vaccine Quad IM 3+ YRS Unknown Completed [facility] Pneumococcal Polysaccharide, PPSV23 (PNEUMOVAX) Unknown Completed [facility] Influenza Virus Vaccine Unknown Completed [facility] Influenza Virus Vaccine Quad IM, Preserv and ABX Free 6 MO-64 YRS (FLUCELVAX) Unknown Completed [facility] TDAP Unknown Completed [facility] MMR Unknown Completed [facility] Influenza Virus Vaccine Quad IM 3+ YRS Unknown Completed [facility] Pneumococcal Polysaccharide, PPSV23 (PNEUMOVAX) Unknown Completed [facility] Influenza Virus Vaccine Unknown Completed [facility] Influenza Virus Vaccine Quad IM, Preserv and ABX Free 6 MO-64 YRS (FLUCELVAX) Unknown Completed [facility] TDAP Unknown Completed [facility] MMR Unknown Completed [facility] Influenza Virus Vaccine Quad IM 3+ YRS Unknown Completed [facility] Pneumococcal Polysaccharide, PPSV23 (PNEUMOVAX) Unknown Completed [facility] Influenza Virus Vaccine Unknown Completed [facility] Influenza Virus Vaccine Quad IM, Preserv and ABX Free 6 MO-64 YRS (FLUCELVAX) Unknown Completed [facility] TDAP Unknown Completed [facility] MMR Unknown Completed [facility] Influenza Virus Vaccine Quad IM 3+ YRS Unknown Completed [facility] Pneumococcal Polysaccharide, PPSV23 (PNEUMOVAX) Unknown Completed [facility] Influenza Virus Vaccine Unknown Completed [facility] Influenza Virus Vaccine Quad IM, Preserv and ABX Free 6 MO-64 YRS (FLUCELVAX) Unknown Completed [facility] TDAP Unknown Completed [facility] MMR Unknown Completed [facility] Influenza Virus Vaccine Quad IM 3+ YRS Unknown Completed [facility] Pneumococcal Polysaccharide, PPSV23 (PNEUMOVAX) Unknown Completed [facility] Influenza Virus Vaccine Unknown Completed [facility] Influenza Virus Vaccine Quad IM, Preserv and ABX Free 6 MO-64 YRS (FLUCELVAX) Unknown Completed [facility] TDAP Unknown Completed [facility] MMR Unknown Completed [facility] Influenza Virus Vaccine Quad IM 3+ YRS Unknown Completed [facility] Pneumococcal Polysaccharide, PPSV23 (PNEUMOVAX) Unknown Completed [facility] Influenza Virus Vaccine Unknown Completed [facility] Influenza Virus Vaccine Quad IM, Preserv and ABX Free 6 MO-64 YRS (FLUCELVAX) Unknown Completed [facility] TDAP Unknown Completed [facility] MMR Unknown Completed [facility] Influenza Virus Vaccine Quad IM 3+ YRS Unknown Completed [facility] Pneumococcal Polysaccharide, PPSV23 (PNEUMOVAX) Unknown [facility] Influ[facility] Virus Vaccine Unknown Completed [facility] Influenza Virus Vaccine Quad IM, Preserv and ABX Free 6 MO-64 YRS (FLUCELVAX) Unknown Completed [facility] TDAP Unknown Completed [facility] MMR Unknown Completed [facility] Influenza Virus Vaccine Quad IM 3+ YRS Unknown Completed [facility] Pneumococcal Polysaccharide, PPSV23 (PNEUMOVAX) Unknown [facility] Influenza Virus Vaccine Unknown Completed [facility] Influenza Virus Vaccine Quad IM, Preserv and ABX Free 6 MO-64 YRS (FLUCELVAX) Unknown Completed [facility] TDAP Unknown Completed [facility] MMR Unknown Completed [facility] Influenza Virus Vaccine Quad IM 3+ YRS Unknown Completed [facility] Pneumococcal Polysaccharide, PPSV23 (PNEUMOVAX) Unknown Completed [facility] Influenza Virus Vaccine Unknown Completed [facility] Influenza Virus Vaccine Quad IM, Preserv and ABX Free 6 MO-64 YRS (FLUCELVAX) Unknown Completed [facility] TDAP Unknown Completed [facility] MMR Unknown Completed [facility] Influenza Virus Vaccine Quad IM 3+ YRS Unknown Completed [facility] Pneumococcal Polysaccharide, PPSV23 (PNEUMOVAX) Unknown Completed [facility] Influenza Virus Vaccine Unknown Completed [facility] Influenza Virus Vaccine Quad IM, Preserv and ABX Free 6 MO-64 YRS (FLUCELVAX) Unknown Completed [facility] TDAP Unknown Completed [facility] MMR Unknown Completed [facility] Influenza Virus Vaccine Quad IM 3+ YRS Unknown Completed [facility] Pneumococcal Polysaccharide, PPSV23 (PNEUMOVAX) Unknown Completed [facility] Influenza Virus Vaccine Unknown Completed [facility] Influenza Virus Vaccine Quad IM, Preserv and ABX Free 6 MO-64 YRS (FLUCELVAX) Unknown Completed [facility] TDAP Unknown Completed [facility] MMR Unknown Completed [facility] Influenza Virus Vaccine Quad IM 3+ YRS Unknown Completed [facility] Pneumococcal Polysaccharide, PPSV23 (PNEUMOVAX) Unknown Completed [facility] Influenza Virus Vaccine Unknown Completed [facility] Influenza Virus Vaccine Quad IM, Preserv and ABX Free 6 MO-64 YRS (FLUCELVAX) Unknown Completed [facility] TDAP Unknown Completed [facility] MMR Unknown Completed [facility] Influenza Virus Vaccine Quad IM 3+ YRS Unknown Completed [facility] Pneumococcal Polysaccharide, PPSV23 (PNEUMOVAX) Unknown Completed [facility] Influenza Virus Vaccine Unknown Completed [facility] Influenza Virus Vaccine Quad IM, Preserv and ABX Free 6 MO-64 YRS (FLUCELVAX) Unknown Completed [facility] TDAP Unknown Completed [facility] MMR Unknown Completed [facility] Influenza Virus Vaccine Quad IM 3+ YRS Unknown Completed [facility] Pneumococcal Polysaccharide, PPSV23 (PNEUMOVAX) Unknown Completed [facility] Influenza Virus Vaccine Unknown Completed [facility] Influenza Virus Vaccine Quad IM, Preserv and ABX Free 6 MO-64 YRS (FLUCELVAX) Unknown Completed [facility] TDAP Unknown Completed [facility] MMR Unknown Completed [facility] Influenza Virus Vaccine Quad IM 3+ YRS Unknown Completed [facility] Pneumococcal Polysaccharide, PPSV23 (PNEUMOVAX) Unknown Completed [facility] Influenza Virus Vaccine Unknown Completed [facility] Influenza Virus Vaccine Quad IM, Preserv and ABX Free 6 MO-64 YRS (FLUCELVAX) Unknown Completed [facility] TDAP Unknown Completed [facility] MMR Unknown Completed [facility] Influenza Virus Vaccine Quad IM 3+ YRS Unknown Completed [facility] Pneumococcal Polysaccharide, PPSV23 (PNEUMOVAX) Unknown Completed [facility] Influenza Virus Vaccine Unknown Completed [facility] Influenza Virus Vaccine Quad IM, Preserv and ABX Free 6 MO-64 YRS (FLUCELVAX) Unknown Completed [facility] TDAP Unknown Completed [facility] MMR Unknown Completed [facility] Influenza Virus Vaccine Quad IM 3+ YRS Unknown Completed [facility] Pneumococcal Polysaccharide, PPSV23 (PNEUMOVAX) Unknown Completed [facility] Influenza Virus Vaccine Unknown Completed [facility] Influenza Virus Vaccine Quad IM, Preserv and ABX Free 6 MO-64 YRS (FLUCELVAX) Unknown Completed [facility] TDAP Unknown Completed [facility] MMR Unknown Completed [facility] Influenza Virus Vaccine Quad IM 3+ YRS Unknown Completed [facility] Pneumococcal Polysaccharide, PPSV23 (PNEUMOVAX) Unknown Completed [facility] Influenza Virus Vaccine Unknown Completed [facility] Influenza Virus Vaccine Quad IM, Preserv and ABX Free 6 MO-64 YRS (FLUCELVAX) Unknown Completed [facility] TDAP Unknown Completed [facility] MMR Unknown Completed [facility] Influenza Virus Vaccine Quad IM 3+ YRS Unknown Completed [facility] Pneumococcal Polysaccharide, PPSV23 (PNEUMOVAX) Unknown Completed [facility] Influenza Virus Vaccine Unknown Completed [facility] Influenza Virus Vaccine Quad IM, Preserv and ABX Free 6 MO-64 YRS (FLUCELVAX) Unknown Completed [facility] TDAP Unknown Completed [facility] MMR Unknown Completed [facility] Influenza Virus Vaccine Quad IM 3+ YRS Unknown Completed [facility] Pneumococcal Polysaccharide, PPSV23 (PNEUMOVAX) Unknown [facility] Influenza Virus Vaccine Unknown Completed [facility] Influenza Virus Vaccine Quad IM, Preserv and ABX Free 6 MO-64 YRS (FLUCELVAX) Unknown Completed [facility] TDAP Unknown Completed [facility] MMR Unknown Completed [facility] Influenza Virus Vaccine Quad IM 3+ YRS Unknown Completed [facility] Pneumococcal Polysaccharide, PPSV23 (PNEUMOVAX) Unknown Completed [facility] Influenza Virus Vaccine Unknown Completed [facility] Influenza Virus Vaccine Quad IM, Preserv and ABX Free 6 MO-64 YRS (FLUCELVAX) Unknown Completed [facility] TDAP Unknown Completed [facility] MMR Unknown Completed [facility] Influenza Virus Vaccine Quad IM 3+ YRS Unknown Completed [facility] Pneumococcal Polysaccharide, PPSV23 (PNEUMOVAX) Unknown Completed [facility] Influenza Virus Vaccine Unknown Completed [facility] Influenza Virus Vaccine Quad IM, Preserv and ABX Free 6 MO-64 YRS (FLUCELVAX) Unknown Completed [facility] TDAP Unknown Completed [facility] MMR Unknown Completed [facility] Influenza Virus Vaccine Quad IM 3+ YRS Unknown Completed [facility] Pneumococcal Polysaccharide, PPSV23 (PNEUMOVAX) Unknown Completed [facility] Influenza Virus Vaccine Unknown Completed [facility] Influenza Virus Vaccine Quad IM, Preserv and ABX Free 6 MO-64 YRS (FLUCELVAX) Unknown Completed [facility] TDAP Unknown Completed [facility] MMR Unknown Completed [facility] Influenza Virus Vaccine Quad IM 3+ YRS Unknown Completed [facility] Pneumococcal Polysaccharide, PPSV23 (PNEUMOVAX) Unknown Completed [facility] Influenza Virus Vaccine Unknown Completed [facility] Influenza Virus Vaccine Quad IM, Preserv and ABX Free 6 MO-64 YRS (FLUCELVAX) Unknown Completed [facility] TDAP Unknown Completed [facility] MMR Unknown Completed [facility] Influenza Virus Vaccine Quad IM 3+ YRS Unknown Completed [facility] Pneumococcal Polysaccharide, PPSV23 (PNEUMOVAX) Unknown Completed [facility] Influenza Virus Vaccine Unknown Completed [facility] Influenza Virus Vaccine Quad IM, Preserv and ABX Free 6 MO-64 YRS (FLUCELVAX) Unknown Completed [facility] TDAP Unknown Completed [facility] MMR Unknown Completed [facility] Influenza Virus Vaccine Quad IM 3+ YRS Unknown Completed [facility] Pneumococcal Polysaccharide, PPSV23 (PNEUMOVAX) Unknown Completed [facility] Influenza Virus Vaccine Unknown Completed [facility] Influenza Virus Vaccine Quad IM, Preserv and ABX Free 6 MO-64 YRS (FLUCELVAX) Unknown Completed [facility] TDAP Unknown Completed [facility] MMR Unknown Completed [facility] Influenza Virus Vaccine Quad IM 3+ YRS Unknown Completed [facility] Pneumococcal Polysaccharide, PPSV23 (PNEUMOVAX) Unknown Completed [facility] Influenza Virus Vaccine Unknown Completed [facility] Influenza Virus Vaccine Quad IM, Preserv and ABX Free 6 MO-64 YRS (FLUCELVAX) Unknown Completed [facility] TDAP Unknown Completed [facility] MMR Unknown Completed [facility] Influenza Virus Vaccine Quad IM 3+ YRS Unknown Completed [facility] Pneumococcal Polysaccharide, PPSV23 (PNEUMOVAX) Unknown Completed [facility] Influenza Virus Vaccine Unknown Completed [facility] Influenza Virus Vaccine Quad IM, Preserv and ABX Free 6 MO-64 YRS (FLUCELVAX) Unknown Completed [facility] TDAP Unknown Completed [facility] MMR Unknown Completed [facility] Influenza Virus Vaccine Quad IM 3+ YRS Unknown Completed [facility] Pneumococcal Polysaccharide, PPSV23 (PNEUMOVAX) Unknown Completed [facility] Influenza Virus Vaccine Unknown Completed [facility] Influenza Virus Vaccine Quad IM, Preserv and ABX Free 6 MO-64 YRS (FLUCELVAX) Unknown Completed [facility] TDAP Unknown Completed [facility] MMR Unknown Completed [facility] Influenza Virus Vaccine Quad IM 3+ YRS Unknown Completed [facility] Pneumococcal Polysaccharide, PPSV23 (PNEUMOVAX) Unknown Completed [facility] Influenza Virus Vaccine Unknown Completed [facility] Influenza Virus Vaccine Quad IM, Preserv and ABX Free 6 MO-64 YRS (FLUCELVAX) Unknown Completed [facility] TDAP Unknown Completed [facility] MMR Unknown Completed [facility] Influenza Virus Vaccine Quad IM 3+ YRS Unknown Completed [facility] Pneumococcal Polysaccharide, PPSV23 (PNEUMOVAX) Unknown [facility] Influenza Virus Vaccine Unknown Completed [facility] Influenza Virus Vaccine Quad IM, Preserv and ABX Free 6 MO-64 YRS (FLUCELVAX) Unknown Completed [facility] TDAP Unknown Completed [facility] MMR Unknown Completed [facility] Influenza Virus Vaccine Quad IM 3+ YRS Unknown Completed [facility] Pneumococcal Polysaccharide, PPSV23 (PNEUMOVAX) Unknown Completed [facility] Influenza Virus Vaccine Unknown Completed [facility] Influenza Virus Vaccine Quad IM, Preserv and ABX Free 6 MO-64 YRS (FLUCELVAX) Unknown Completed [facility] TDAP Unknown Completed [facility] MMR Unknown Completed [facility] Influenza Virus Vaccine Quad IM 3+ YRS Unknown Completed [facility] Pneumococcal Polysaccharide, PPSV23 (PNEUMOVAX) Unknown Completed [facility] Influenza Virus Vaccine Unknown Completed [facility] Influenza Virus Vaccine Quad IM, Preserv and ABX Free 6 MO-64 YRS (FLUCELVAX) Unknown Completed [facility] TDAP Unknown Completed [facility] MMR Unknown Completed [facility] Influenza Virus Vaccine Quad IM 3+ YRS Unknown Completed [facility] Pneumococcal Polysaccharide, PPSV23 (PNEUMOVAX) Unknown Completed [facility] Influenza Virus Vaccine Unknown Completed [facility] Influenza Virus Vaccine Quad IM, Preserv and ABX Free 6 MO-64 YRS (FLUCELVAX) Unknown Completed [facility] TDAP Unknown Completed [facility] MMR Unknown Completed [facility] Influenza Virus Vaccine Quad IM 3+ YRS Unknown Completed [facility] Pneumococcal Polysaccharide, PPSV23 (PNEUMOVAX) Unknown Completed [facility] Influenza Virus Vaccine Unknown Completed [facility] Influenza Virus Vaccine Quad IM, Preserv and ABX Free 6 MO-64 YRS (FLUCELVAX) Unknown Completed [facility] TDAP Unknown Completed [facility] MMR Unknown Completed [facility] Influenza Virus Vaccine Quad IM 3+ YRS Unknown Completed [facility] Pneumococcal Polysaccharide, PPSV23 (PNEUMOVAX) Unknown Completed [facility] Influenza Virus Vaccine Unknown Completed [facility] Influenza Virus Vaccine Quad IM, Preserv and ABX Free 6 MO-64 YRS (FLUCELVAX) Unknown Completed [facility] TDAP Unknown Completed [facility] MMR Unknown Completed [facility] Influenza Virus Vaccine Quad IM 3+ YRS Unknown Completed [facility] Pneumococcal Polysaccharide, PPSV23 (PNEUMOVAX) Unknown Completed [facility] Influenza Virus Vaccine Unknown Completed [facility] Influenza Virus Vaccine Quad IM, Preserv and ABX Free 6 MO-64 YRS (FLUCELVAX) Unknown Completed [facility] TDAP Unknown Completed [facility] MMR Unknown Completed [facility] Influenza Virus Vaccine Quad IM 3+ YRS Unknown Completed [facility] Pneumococcal Polysaccharide, PPSV23 (PNEUMOVAX) Unknown Completed [facility] Influenza Virus Vaccine Unknown Completed [facility] Influenza Virus Vaccine Quad IM, Preserv and ABX Free 6 MO-64 YRS (FLUCELVAX) Unknown Completed [facility] TDAP Unknown Completed [facility] MMR Unknown Completed [facility] Influenza Virus Vaccine Quad IM 3+ YRS Unknown Completed [facility] Pneumococcal Polysaccharide, PPSV23 (PNEUMOVAX) Unknown Completed [facility] Influenza Virus Vaccine Unknown Completed [facility] Influenza Virus Vaccine Quad IM, Preserv and ABX Free 6 MO-64 YRS (FLUCELVAX) Unknown Completed [facility] TDAP Unknown Completed [facility] MMR Unknown Completed [facility] Influenza Virus Vaccine Quad IM 3+ YRS Unknown Completed [facility] Pneumococcal Polysaccharide, PPSV23 (PNEUMOVAX) Unknown Completed [facility] Influenza Virus Vaccine Unknown Completed [facility] Influenza Virus Vaccine Quad IM, Preserv and ABX Free 6 MO-64 YRS (FLUCELVAX) Unknown Completed [facility] Flu Injectable MDCK Pres-Free (FLUCELVAX) Unknown Completed [facility] TDAP Unknown Completed [facility] MMR Unknown Completed [facility] Influenza Virus Vaccine Quad IM 3+ YRS Unknown Completed [facility] Pneumococcal Polysaccharide, PPSV23 (PNEUMOVAX) Unknown Completed [facility] Influenza Virus Vaccine Unknown Completed [facility] Influenza Virus Vaccine Quad IM, Preserv and ABX Free 6 MO-64 YRS (FLUCELVAX) Unknown Completed [facility] TDAP Unknown Completed [facility] MMR Unknown Completed [facility] Influenza Virus Vaccine Quad .5 mL IM 6+ MO (FLUZONE/FLULAVAL/F LUARIX) Unknown Completed [facility] Pneumococcal Polysaccharide, PPSV23 (PNEUMOVAX) Unknown Completed [facility] Influenza Virus Vaccine Unknown Completed [facility] Influenza Virus Vaccine Quad IM, Preserv and ABX Free 6 MO-64 YRS (FLUCELVAX) Unknown Completed [facility] Flu Injectable MDCK Pres-Free (FLUCELVAX) Unknown Completed [facility] TDAP Unknown Completed [facility] MMR Unknown Completed [facility] Influenza Virus Vaccine Quad .5 mL IM 6+ MO (FLUZONE/FLULAVAL/F LUARIX) Unknown Completed [facility] Pneumococcal Polysaccharide, PPSV23 (PNEUMOVAX) Unknown Completed [facility] Influenza Virus Vaccine Unknown Completed [facility] Influenza Virus Vaccine Quad IM, Preserv and ABX Free 6 MO-64 YRS (FLUCELVAX) Unknown Completed [facility] Flu Injectable MDCK Pres-Free (FLUCELVAX) Unknown Completed [facility] TDAP Unknown Completed [facility] MMR Unknown Completed [facility] Influenza Virus Vaccine Quad .5 mL IM 6+ MO (FLUZONE/FLULAVAL/F LUARIX) Unknown Completed [facility] Pneumococcal Polysaccharide, PPSV23 (PNEUMOVAX) Unknown Completed [facility] Influenza Virus Vaccine Unknown Completed [facility] Influenza Virus Vaccine Quad IM, Preserv and ABX Free 6 MO-64 YRS (FLUCELVAX) Unknown Completed [facility] Flu Injectable MDCK Pres-Free (FLUCELVAX) Unknown Completed [facility] Vital Signs Vital Name Observation Time Observation Value Comments S ource Systolic blood pressure 2024-07-30 19:29:00 111 mm[Hg] [facility] Diastolic blood pressure 2024-07-30 19:29:00 80 mm[Hg] [facility] Heart rate 2024-07-30 19:29:00 88 /min [facility] Body temperature 2024-07-30 19:29:00 36.39 [place] [facility] Respiratory rate 2024-07-30 19:29:00 16 /min [facility] Body height 2024-07-30 19:29:00 162.6 cm [facility] Body weight 2024-07-30 19:29:00 73.12 kg [facility] BMI 2024-07-30 19:29:00 27.67 kg/m2 [facility] Oxygen saturation in Arterial blood by Pulse oximetry 2024-07-30 19:29:00 98 /min [facility] Systolic blood pressure 2024-07-17 19:58:00 108 mm[Hg] [facility] Diastolic blood pressure 2024-07-17 19:58:00 71 mm[Hg] [facility] Heart rate 2024-07-17 19:58:00 79 /min [facility] Body height 2024-07-17 19:58:00 162.6 cm [facility] Body weight 2024-07-17 19:58:00 73.029 kg [facility] BMI 2024-07-17 19:58:00 27.64 kg/m2 [facility] Oxygen saturation in Arterial blood by Pulse oximetry 2024-07-17 19:58:00 99 /min [facility] Systolic blood pressure 2024-06-25 19:04:00 101 mm[Hg] [facility] Diastolic blood pressure 2024-06-25 19:04:00 68 mm[Hg] [facility] Heart rate 2024-06-25 19:04:00 83 /min [facility] Respiratory rate 2024-06-25 19:04:00 12 /min [facility] Body height 2024-06-25 19:04:00 162.6 cm [facility] Body weight 2024-06-25 19:04:00 73.029 kg [facility] BMI 2024-06-25 19:04:00 27.64 kg/m2 [facility] Oxygen saturation in Arterial blood by Pulse oximetry 2024-06-25 19:04:00 99 /min [facility] Systolic blood pressure 2024-06-20 17:31:00 122 mm[Hg] [facility] Diastolic blood pressure 2024-06-20 17:31:00 81 mm[Hg] [facility] Heart rate 2024-06-20 17:31:00 84 /min [facility] Body temperature 2024-06-20 17:31:00 36.78 [place] [facility] Body height 2024-06-20 17:31:00 162.6 cm [facility] Body weight 2024-06-20 17:31:00 73.029 kg [facility] BMI 2024-06-20 17:31:00 27.64 kg/m2 [facility] Systolic blood pressure 2024-05-20 15:19:00 122 mm[Hg] [facility] Diastolic blood pressure 2024-05-20 15:19:00 85 mm[Hg] [facility] Heart rate 2024-05-20 15:19:00 82 /min [facility] Respiratory rate 2024-05-20 15:19:00 18 /min [facility] Body height 2024-05-20 15:19:00 162.6 cm [facility] Body weight 2024-05-20 15:19:00 73.528 kg [facility] BMI 2024-05-20 15:19:00 27.82 kg/m2 [facility] Oxygen saturation in Arterial blood by Pulse oximetry 2024-05-20 15:19:00 99 /min [facility] Systolic blood pressure 2024-05-05 18:16:00 111 mm[Hg] [facility] Diastolic blood pressure 2024-05-05 18:16:00 84 mm[Hg] [facility] Heart rate 2024-05-05 18:16:00 92 /min [facility] Respiratory rate 2024-05-05 18:16:00 18 /min [facility] Body height 2024-05-05 18:16:00 162.6 cm [facility] Body weight 2024-05-05 18:16:00 72.893 kg [facility] BMI 2024-05-05 18:16:00 27.58 kg/m2 [facility] Oxygen saturation in Arterial blood by Pulse oximetry 2024-05-05 18:16:00 99 /min [facility] Systolic blood pressure 2024-04-21 19:07:00 109 mm[Hg] [facility] Diastolic blood pressure 2024-04-21 19:07:00 76 mm[Hg] [facility] Heart rate 2024-04-21 19:07:00 84 /min [facility] Respiratory rate 2024-04-21 19:07:00 18 /min [facility] Body height 2024-04-21 19:07:00 162.5 cm [facility] Body weight 2024-04-21 19:07:00 75.433 kg [facility] BMI 2024-04-21 19:07:00 28.57 kg/m2 [facility] Oxygen saturation in Arterial blood by Pulse oximetry 2024-04-21 19:07:00 98 /min [facility] Systolic blood pressure 2024-04-15 20:16:00 115 mm[Hg] [facility] Diastolic blood pressure 2024-04-15 20:16:00 73 mm[Hg] [facility] Heart rate 2024-04-15 20:16:00 85 /min [facility] Respiratory rate 2024-04-15 20:16:00 18 /min [facility] Body height 2024-04-15 20:16:00 162.6 cm [facility] Body weight 2024-04-15 20:16:00 76.204 kg [facility] BMI 2024-04-15 20:16:00 28.84 kg/m2 [facility] Systolic blood pressure 2024-04-10 16:46:00 106 mm[Hg] [facility] Diastolic blood pressure 2024-04-10 16:46:00 74 mm[Hg] [facility] Heart rate 2024-04-10 16:46:00 82 /min [facility] Body temperature 2024-04-10 16:46:00 35.94 [place] [facility] Respiratory rate 2024-04-10 16:46:00 16 /min [facility] Body weight 2024-04-10 16:46:00 76.204 kg [facility] BMI 2024-04-10 16:46:00 29.29 kg/m2 [facility] Oxygen saturation in Arterial blood by Pulse oximetry 2024-04-10 16:46:00 99 /min [facility] Heart rate 2024-03-24 18:40:00 70 /min [facility] Respiratory rate 2024-03-24 18:40:00 10 /min [facility] Oxygen saturation in Arterial blood by Pulse oximetry 2024-03-24 18:40:00 99 /min [facility] Systolic blood pressure 2024-03-24 18:35:00 94 mm[Hg] [facility] Diastolic blood pressure 2024-03-24 18:35:00 66 mm[Hg] [facility] Body temperature 2024-03-24 17:13:00 36.5 [place] [facility] Body height 2024-03-24 14:35:00 161.3 cm [facility] Body weight 2024-03-24 14:35:00 76.204 kg [facility] BMI 2024-03-24 14:35:00 29.29 kg/m2 [facility] Systolic blood pressure 2024-03-24 14:37:00 114 mm[Hg] [facility] Diastolic blood pressure 2024-03-24 14:37:00 71 mm[Hg] [facility] Heart rate 2024-03-24 14:37:00 78 /min [facility] Body temperature 2024-03-24 14:35:00 36.89 [place] [facility] Respiratory rate 2024-03-24 14:35:00 18 /min [facility] Body height 2024-03-24 14:35:00 161.3 cm [facility] Body weight 2024-03-24 14:35:00 76.204 kg [facility] BMI 2024-03-24 14:35:00 29.29 kg/m2 [facility] Oxygen saturation in Arterial blood by Pulse oximetry 2024-03-24 14:35:00 98 /min [facility] Systolic blood pressure 2024-03-20 19:09:00 103 mm[Hg] [facility] Diastolic blood pressure 2024-03-20 19:09:00 79 mm[Hg] [facility] Heart rate 2024-03-20 19:09:00 82 /min [facility] Oxygen saturation in Arterial blood by Pulse oximetry 2024-03-20 19:09:00 97 /min [facility] Respiratory rate 2024-03-20 18:45:00 15 /min [facility] Body temperature 2024-03-20 17:40:00 36.89 [place] [facility] Body height 2024-03-20 17:40:00 162.6 cm [facility] Body weight 2024-03-20 17:40:00 76.204 kg [facility] BMI 2024-03-20 17:40:00 28.84 kg/m2 [facility] Body weight 2024-02-07 19:45:00 84.369 kg [facility] BMI 2024-02-07 19:45:00 31.93 kg/m2 [facility] Systolic blood pressure 2024-02-06 18:30:00 97 mm[Hg] [facility] Diastolic blood pressure 2024-02-06 18:30:00 66 mm[Hg] [facility] Heart rate 2024-02-06 18:30:00 96 /min [facility] Respiratory rate 2024-02-06 18:30:00 18 /min [facility] Body height 2024-02-06 18:30:00 162.6 cm [facility] Body weight 2024-02-06 18:30:00 84.823 kg [facility] BMI 2024-02-06 18:30:00 32.10 kg/m2 [facility] Systolic blood pressure 2024-02-04 19:24:00 109 mm[Hg] [facility] Diastolic blood pressure 2024-02-04 19:24:00 80 mm[Hg] [facility] Heart rate 2024-02-04 19:24:00 95 /min [facility] Body height 2024-02-04 19:24:00 162.6 cm [facility] Body weight 2024-02-04 19:24:00 84.369 kg [facility] BMI 2024-02-04 19:24:00 31.93 kg/m2 [facility] Oxygen saturation in Arterial blood by Pulse oximetry 2024-02-04 19:24:00 99 /min [facility] Systolic blood pressure 2024-01-23 19:29:00 115 mm[Hg] [facility] Diastolic blood pressure 2024-01-23 19:29:00 82 mm[Hg] [facility] Heart rate 2024-01-23 19:29:00 100 /min [facility] Body temperature 2024-01-23 19:29:00 36.22 [place] [facility] Respiratory rate 2024-01-23 19:29:00 18 /min [facility] Body height 2024-01-23 19:29:00 162.6 cm [facility] Body weight 2024-01-23 19:29:00 86.183 kg [facility] BMI 2024-01-23 19:29:00 32.61 kg/m2 [facility] Oxygen saturation in Arterial blood by Pulse oximetry 2024-01-23 19:29:00 98 /min [facility] Systolic blood pressure 2024-01-15 21:03:00 119 mm[Hg] [facility] Diastolic blood pressure 2024-01-15 21:03:00 84 mm[Hg] [facility] Heart rate 2024-01-15 21:03:00 97 /min [facility] Body temperature 2024-01-15 21:03:00 36.67 [place] [facility] Respiratory rate 2024-01-15 21:03:00 16 /min [facility] Body height 2024-01-15 21:03:00 162.6 cm [facility] Body weight 2024-01-15 21:03:00 90.855 kg [facility] BMI 2024-01-15 21:03:00 34.38 kg/m2 [facility] Oxygen saturation in Arterial blood by Pulse oximetry 2024-01-15 21:03:00 96 /min [facility] Systolic blood pressure 2024-01-15 19:34:00 124 mm[Hg] [facility] Diastolic blood pressure 2024-01-15 19:34:00 84 mm[Hg] [facility] Heart rate 2024-01-15 19:34:00 91 /min [facility] Body height 2024-01-15 19:34:00 162.6 cm [facility] Body weight 2024-01-15 19:34:00 84.823 kg [facility] BMI 2024-01-15 19:34:00 32.10 kg/m2 [facility] Oxygen saturation in Arterial blood by Pulse oximetry 2024-01-15 19:34:00 98 /min [facility] Systolic blood pressure 2023-12-19 19:25:00 121 mm[Hg] [facility] Diastolic blood pressure 2023-12-19 19:25:00 80 mm[Hg] [facility] Heart rate 2023-12-19 19:25:00 81 /min [facility] Body temperature 2023-12-19 19:25:00 36.22 [place] [facility] Respiratory rate 2023-12-19 19:25:00 18 /min [facility] Body height 2023-12-19 19:25:00 162.6 cm [facility] Body weight 2023-12-19 19:25:00 91.173 kg [facility] BMI 2023-12-19 19:25:00 34.50 kg/m2 [facility] Oxygen saturation in Arterial blood by Pulse oximetry 2023-12-19 19:25:00 96 /min [facility] Systolic blood pressure 2023-10-15 20:35:00 114 mm[Hg] [facility] Diastolic blood pressure 2023-10-15 20:35:00 81 mm[Hg] [facility] Heart rate 2023-10-15 20:35:00 77 /min [facility] Body height 2023-10-15 20:35:00 162.6 cm [facility] Body weight 2023-10-15 20:35:00 89.313 kg [facility] BMI 2023-10-15 20:35:00 33.80 kg/m2 [facility] Oxygen saturation in Arterial blood by Pulse oximetry 2023-10-15 20:35:00 97 /min [facility] Systolic blood pressure 2023-09-12 21:15:00 120 mm[Hg] [facility] Diastolic blood pressure 2023-09-12 21:15:00 75 mm[Hg] [facility] Heart rate 2023-09-12 21:15:00 89 /min [facility] Respiratory rate 2023-09-12 21:15:00 16 /min [facility] Oxygen saturation in Arterial blood by Pulse oximetry 2023-09-12 21:15:00 97 /min [facility] Body temperature 2023-09-12 20:24:39 36.94 [place] [facility] Body height 2023-09-12 20:02:00 162.6 cm [facility] Body weight 2023-09-12 20:02:00 95.255 kg [facility] BMI 2023-09-12 20:02:00 36.05 kg/m2 [facility] Systolic blood pressure 2023-09-10 21:59:00 111 mm[Hg] [facility] Diastolic blood pressure 2023-09-10 21:59:00 71 mm[Hg] [facility] Heart rate 2023-09-10 21:59:00 82 /min [facility] Body height 2023-09-10 21:59:00 162.6 cm [facility] Body weight 2023-09-10 21:59:00 95.255 kg [facility] BMI 2023-09-10 21:59:00 36.05 kg/m2 [facility] Systolic blood pressure 2023-06-25 19:40:00 114 mm[Hg] [facility] Diastolic blood pressure 2023-06-25 19:40:00 78 mm[Hg] [facility] Heart rate 2023-06-25 19:40:00 82 /min [facility] Respiratory rate 2023-06-25 19:40:00 12 /min [facility] Body height 2023-06-25 19:40:00 162.6 cm [facility] Body weight 2023-06-25 19:40:00 95.255 kg [facility] BMI 2023-06-25 19:40:00 36.05 kg/m2 [facility] Oxygen saturation in Arterial blood by Pulse oximetry 2023-06-25 19:40:00 97 /min [facility] Systolic blood pressure 2023-06-11 18:36:00 130 mm[Hg] [facility] Diastolic blood pressure 2023-06-11 18:36:00 86 mm[Hg] [facility] Heart rate 2023-06-11 18:36:00 77 /min [facility] Body height 2023-06-11 18:36:00 162.6 cm [facility] Body weight 2023-06-11 18:36:00 92.352 kg [facility] BMI 2023-06-11 18:36:00 34.95 kg/m2 [facility] Oxygen saturation in Arterial blood by Pulse oximetry 2023-06-11 18:36:00 97 /min [facility] Systolic blood pressure 2023-06-06 18:24:00 125 mm[Hg] [facility] Diastolic blood pressure 2023-06-06 18:24:00 86 mm[Hg] [facility] Heart rate 2023-06-06 18:24:00 79 /min [facility] Respiratory rate 2023-06-06 18:24:00 18 /min [facility] Body height 2023-06-06 18:24:00 162.6 cm [facility] Body weight 2023-06-06 18:24:00 91.173 kg [facility] BMI 2023-06-06 18:24:00 34.50 kg/m2 [facility] Systolic blood pressure 2023-05-11 19:10:00 101 mm[Hg] [facility] Diastolic blood pressure 2023-05-11 19:10:00 57 mm[Hg] [facility] Heart rate 2023-05-11 19:10:00 84 /min [facility] Respiratory rate 2023-05-11 19:10:00 16 /min [facility] Oxygen saturation in Arterial blood by Pulse oximetry 2023-05-11 19:10:00 100 /min [facility] Body height 2023-05-11 18:07:00 162.6 cm [facility] Body weight 2023-05-11 18:07:00 90.719 kg [facility] BMI 2023-05-11 18:07:00 34.33 kg/m2 [facility] Systolic blood pressure 2023-05-02 18:07:00 121 mm[Hg] [facility] Diastolic blood pressure 2023-05-02 18:07:00 84 mm[Hg] [facility] Heart rate 2023-05-02 18:07:00 93 /min [facility] Body temperature 2023-05-02 18:07:00 37.11 [place] [facility] Respiratory rate 2023-05-02 18:07:00 16 /min [facility] Body height 2023-05-02 18:07:00 162.6 cm [facility] Body weight 2023-05-02 18:07:00 92.579 kg [facility] BMI 2023-05-02 18:07:00 35.03 kg/m2 [facility] Oxygen saturation in Arterial blood by Pulse oximetry 2023-05-02 18:07:00 97 /min [facility] Systolic blood pressure 2023-04-09 14:50:00 113 mm[Hg] [facility] Diastolic blood pressure 2023-04-09 14:50:00 88 mm[Hg] [facility] Heart rate 2023-04-09 14:50:00 77 /min [facility] Respiratory rate 2023-04-09 14:50:00 11 /min [facility] Oxygen saturation in Arterial blood by Pulse oximetry 2023-04-09 14:50:00 98 /min [facility] Body temperature 2023-04-09 14:24:00 36.17 [place] [facility] Body height 2023-04-09 12:41:00 162.6 cm [facility] Body weight 2023-04-09 12:41:00 91.627 kg [facility] BMI 2023-04-09 12:41:00 34.67 kg/m2 [facility] Systolic blood pressure 2023-04-09 12:41:00 136 mm[Hg] [facility] Diastolic blood pressure 2023-04-09 12:41:00 93 mm[Hg] [facility] Heart rate 2023-04-09 12:41:00 79 /min [facility] Body temperature 2023-04-09 12:41:00 36.17 [place] [facility] Respiratory rate 2023-04-09 12:41:00 16 /min [facility] Body height 2023-04-09 12:41:00 162.6 cm [facility] Body weight 2023-04-09 12:41:00 91.627 kg [facility] BMI 2023-04-09 12:41:00 34.67 kg/m2 [facility] Oxygen saturation in Arterial blood by Pulse oximetry 2023-04-09 12:41:00 99 /min [facility] Systolic blood pressure 2023-03-29 19:30:00 115 mm[Hg] [facility] Diastolic blood pressure 2023-03-29 19:30:00 78 mm[Hg] [facility] Heart rate 2023-03-29 19:30:00 85 /min [facility] Body temperature 2023-03-29 19:26:00 36.61 [place] [facility] Respiratory rate 2023-03-29 19:26:00 18 /min [facility] Body height 2023-03-29 19:26:00 162.6 cm [facility] Body weight 2023-03-29 19:26:00 93.577 kg [facility] BMI 2023-03-29 19:26:00 35.41 kg/m2 [facility] Oxygen saturation in Arterial blood by Pulse oximetry 2023-03-29 19:26:00 99 /min [facility] Systolic blood pressure 2023-03-13 19:14:00 118 mm[Hg] [facility] Diastolic blood pressure 2023-03-13 19:14:00 81 mm[Hg] [facility] Heart rate 2023-03-13 19:14:00 74 /min [facility] Body height 2023-03-13 19:14:00 162.6 cm [facility] Body weight 2023-03-13 19:14:00 93.441 kg [facility] BMI 2023-03-13 19:14:00 35.36 kg/m2 [facility] Oxygen saturation in Arterial blood by Pulse oximetry 2023-03-13 19:14:00 99 /min [facility] Systolic blood pressure 2023-03-06 20:09:00 119 mm[Hg] [facility] Diastolic blood pressure 2023-03-06 20:09:00 85 mm[Hg] [facility] Heart rate 2023-03-06 20:09:00 79 /min [facility] Respiratory rate 2023-03-06 20:09:00 16 /min [facility] Body height 2023-03-06 20:09:00 162.6 cm [facility] Body weight 2023-03-06 20:09:00 93.804 kg [facility] BMI 2023-03-06 20:09:00 35.50 kg/m2 [facility] Oxygen saturation in Arterial blood by Pulse oximetry 2023-03-06 20:09:00 98 /min [facility] Systolic blood pressure 2023-02-19 19:12:00 121 mm[Hg] [facility] Diastolic blood pressure 2023-02-19 19:12:00 84 mm[Hg] [facility] Heart rate 2023-02-19 19:12:00 83 /min [facility] Body height 2023-02-19 19:12:00 162.6 cm [facility] Body weight 2023-02-19 19:12:00 93.35 kg [facility] BMI 2023-02-19 19:12:00 35.33 kg/m2 [facility] Systolic blood pressure 2023-01-30 19:51:00 118 mm[Hg] [facility] Diastolic blood pressure 2023-01-30 19:51:00 80 mm[Hg] [facility] Heart rate 2023-01-30 19:51:00 89 /min [facility] Respiratory rate 2023-01-30 19:51:00 18 /min [facility] Body height 2023-01-30 19:51:00 162.6 cm [facility] Body weight 2023-01-30 19:51:00 93.577 kg [facility] BMI 2023-01-30 19:51:00 35.41 kg/m2 [facility] Oxygen saturation in Arterial blood by Pulse oximetry 2023-01-30 19:51:00 97 /min [facility] Systolic blood pressure 2023-01-19 19:30:00 109 mm[Hg] [facility] Diastolic blood pressure 2023-01-19 19:30:00 77 mm[Hg] [facility] Heart rate 2023-01-19 19:30:00 92 /min [facility] Body temperature 2023-01-19 19:30:00 36.56 [place] [facility] Respiratory rate 2023-01-19 19:30:00 18 /min [facility] Body height 2023-01-19 19:30:00 162.6 cm [facility] Body weight 2023-01-19 19:30:00 93.668 kg [facility] BMI 2023-01-19 19:30:00 35.45 kg/m2 [facility] Oxygen saturation in Arterial blood by Pulse oximetry 2023-01-19 19:30:00 98 /min [facility] Systolic blood pressure 2023-01-09 14:59:00 112 mm[Hg] [facility] Diastolic blood pressure 2023-01-09 14:59:00 80 mm[Hg] [facility] Heart rate 2023-01-09 14:59:00 78 /min [facility] Respiratory rate 2023-01-09 14:59:00 16 /min [facility] Body height 2023-01-09 14:59:00 162.6 cm [facility] Body weight 2023-01-09 14:59:00 94.348 kg [facility] BMI 2023-01-09 14:59:00 35.70 kg/m2 [facility] Oxygen saturation in Arterial blood by Pulse oximetry 2023-01-09 14:59:00 98 /min [facility] Systolic blood pressure 2023-01-01 18:36:00 131 mm[Hg] Patient just had a [employer] drink [facility] Diastolic blood pressure 2023-01-01 18:36:00 92 mm[Hg] Patient just had a [employer] drink [facility] Heart rate 2023-01-01 18:36:00 86 /min [facility] Body temperature 2023-01-01 18:36:00 36.44 [place] [facility] Body height 2023-01-01 18:36:00 162.6 cm [facility] Body weight 2023-01-01 18:36:00 94.348 kg [facility] BMI 2023-01-01 18:36:00 35.70 kg/m2 [facility] Oxygen saturation in Arterial blood by Pulse oximetry 2023-01-01 18:36:00 96 /min [facility] Systolic blood pressure 2023-01-01 15:13:00 112 mm[Hg] [facility] Diastolic blood pressure 2023-01-01 15:13:00 80 mm[Hg] [facility] Heart rate 2023-01-01 15:13:00 76 /min [facility] Respiratory rate 2023-01-01 15:13:00 18 /min [facility] Body height 2023-01-01 15:13:00 162.6 cm [facility] Body weight 2023-01-01 15:13:00 94.348 kg [facility] BMI 2023-01-01 15:13:00 35.70 kg/m2 [facility] Systolic blood pressure 2022-12-11 16:20:00 100 mm[Hg] [facility] Diastolic blood pressure 2022-12-11 16:20:00 79 mm[Hg] [facility] Heart rate 2022-12-11 16:20:00 79 /min [facility] Respiratory rate 2022-12-11 16:20:00 16 /min [facility] Body temperature 2022-12-11 14:44:00 36.67 [place] [facility] Body height 2022-12-11 14:44:00 162.6 cm [facility] Body weight 2022-12-11 14:44:00 93.441 kg [facility] BMI 2022-12-11 14:44:00 35.36 kg/m2 [facility] Oxygen saturation in Arterial blood by Pulse oximetry 2022-12-11 14:44:00 100 /min [facility] Systolic blood pressure 2022-11-29 16:18:00 115 mm[Hg] [facility] Diastolic blood pressure 2022-11-29 16:18:00 80 mm[Hg] [facility] Heart rate 2022-11-29 16:18:00 77 /min [facility] Body temperature 2022-11-29 16:18:00 36.67 [place] [facility] Respiratory rate 2022-11-29 16:18:00 18 /min [facility] Body height 2022-11-29 16:18:00 162.6 cm [facility] Body weight 2022-11-29 16:18:00 95.119 kg [facility] BMI 2022-11-29 16:18:00 35.99 kg/m2 [facility] Oxygen saturation in Arterial blood by Pulse oximetry 2022-11-29 16:18:00 98 /min [facility] Systolic blood pressure 2022-10-25 19:08:00 134 mm[Hg] [facility] Diastolic blood pressure 2022-10-25 19:08:00 84 mm[Hg] [facility] Heart rate 2022-10-25 19:08:00 79 /min [facility] Body temperature 2022-10-25 19:08:00 36.33 [place] [facility] Respiratory rate 2022-10-25 19:08:00 16 /min [facility] Body height 2022-10-25 19:08:00 162.6 cm [facility] Body weight 2022-10-25 19:08:00 99.02 kg [facility] BMI 2022-10-25 19:08:00 37.47 kg/m2 [facility] Oxygen saturation in Arterial blood by Pulse oximetry 2022-10-25 19:08:00 99 /min [facility] Systolic blood pressure 2022-10-24 14:40:00 116 mm[Hg] [facility] Diastolic blood pressure 2022-10-24 14:40:00 82 mm[Hg] [facility] Heart rate 2022-10-24 14:40:00 73 /min [facility] Body height 2022-10-24 14:40:00 162.6 cm [facility] Body weight 2022-10-24 14:40:00 99.791 kg [facility] BMI 2022-10-24 14:40:00 37.76 kg/m2 [facility] Oxygen saturation in Arterial blood by Pulse oximetry 2022-10-24 14:40:00 98 /min [facility] Systolic blood pressure 2022-10-18 20:33:00 126 mm[Hg] [facility] Diastolic blood pressure 2022-10-18 20:33:00 85 mm[Hg] [facility] Heart rate 2022-10-18 20:33:00 83 /min [facility] Body height 2022-10-18 20:33:00 162.6 cm [facility] Body weight 2022-10-18 20:33:00 98.385 kg [facility] BMI 2022-10-18 20:33:00 37.23 kg/m2 [facility] Oxygen saturation in Arterial blood by Pulse oximetry 2022-10-18 20:33:00 99 /min [facility] Systolic blood pressure 2022-09-21 17:31:00 125 mm[Hg] [facility] Diastolic blood pressure 2022-09-21 17:31:00 81 mm[Hg] [facility] Heart rate 2022-09-21 17:31:00 77 /min [facility] Body temperature 2022-09-21 17:31:00 37.17 [place] [facility] Body height 2022-09-21 17:31:00 162.6 cm [facility] Body weight 2022-09-21 17:31:00 98.431 kg [facility] BMI 2022-09-21 17:31:00 37.25 kg/m2 [facility] Oxygen saturation in Arterial blood by Pulse oximetry 2022-09-21 17:31:00 97 /min [facility] Systolic blood pressure 2022-09-15 17:50:00 96 mm[Hg] [facility] Diastolic blood pressure 2022-09-15 17:50:00 67 mm[Hg] [facility] Heart rate 2022-09-15 17:50:00 81 /min [facility] Respiratory rate 2022-09-15 17:50:00 18 /min [facility] Body temperature 2022-09-15 16:40:00 37 [place] [facility] Body height 2022-09-15 16:40:00 162.6 cm [facility] Body weight 2022-09-15 16:40:00 102.513 kg [facility] BMI 2022-09-15 16:40:00 38.79 kg/m2 [facility] Oxygen saturation in Arterial blood by Pulse oximetry 2022-09-15 16:40:00 100 /min [facility] Systolic blood pressure 2022-09-13 15:34:00 114 mm[Hg] [facility] Diastolic blood pressure 2022-09-13 15:34:00 79 mm[Hg] [facility] Heart rate 2022-09-13 15:34:00 78 /min [facility] Body weight 2022-09-13 15:34:00 102.83 kg [facility] BMI 2022-09-13 15:34:00 38.91 kg/m2 [facility] Oxygen saturation in Arterial blood by Pulse oximetry 2022-09-13 15:34:00 98 /min [facility] Systolic blood pressure 2022-09-12 15:38:00 123 mm[Hg] [facility] Diastolic blood pressure 2022-09-12 15:38:00 71 mm[Hg] [facility] Heart rate 2022-09-12 15:38:00 70 /min [facility] Body temperature 2022-09-12 15:38:00 36.94 [place] [facility] Respiratory rate 2022-09-12 15:38:00 16 /min [facility] Body height 2022-09-12 15:38:00 162.6 cm [facility] Body weight 2022-09-12 15:38:00 102.059 kg [facility] BMI 2022-09-12 15:38:00 38.62 kg/m2 [facility] Oxygen saturation in Arterial blood by Pulse oximetry 2022-09-12 15:38:00 98 /min [facility] Systolic blood pressure 2022-08-21 15:34:00 123 mm[Hg] [facility] Diastolic blood pressure 2022-08-21 15:34:00 85 mm[Hg] [facility] Heart rate 2022-08-21 15:34:00 70 /min [facility] Body height 2022-08-21 15:34:00 162.6 cm [facility] Body weight 2022-08-21 15:34:00 100.699 kg [facility] BMI 2022-08-21 15:34:00 38.11 kg/m2 [facility] Systolic blood pressure 2022-08-16 19:15:00 135 mm[Hg] [facility] Diastolic blood pressure 2022-08-16 19:15:00 96 mm[Hg] [facility] Heart rate 2022-08-16 19:15:00 74 /min [facility] Respiratory rate 2022-08-16 19:15:00 20 /min [facility] Body height 2022-08-16 19:15:00 162.6 cm [facility] Body weight 2022-08-16 19:15:00 99.791 kg [facility] BMI 2022-08-16 19:15:00 37.76 kg/m2 [facility] Oxygen saturation in Arterial blood by Pulse oximetry 2022-08-16 19:15:00 98 /min [facility] Systolic blood pressure 2022-08-15 17:30:00 114 mm[Hg] [facility] Diastolic blood pressure 2022-08-15 17:30:00 79 mm[Hg] [facility] Heart rate 2022-08-15 17:30:00 81 /min [facility] Body temperature 2022-08-15 17:30:00 37 [place] [facility] Respiratory rate 2022-08-15 17:30:00 18 /min [facility] Body height 2022-08-15 17:30:00 162.6 cm [facility] Body weight 2022-08-15 17:30:00 99.791 kg [facility] BMI 2022-08-15 17:30:00 37.76 kg/m2 [facility] Systolic blood pressure 2022-08-02 19:33:00 132 mm[Hg] [facility] Diastolic blood pressure 2022-08-02 19:33:00 90 mm[Hg] [facility] Heart rate 2022-08-02 19:33:00 73 /min [facility] Body temperature 2022-08-02 19:33:00 36.61 [place] [facility] Respiratory rate 2022-08-02 19:33:00 18 /min [facility] Body height 2022-08-02 19:33:00 162.6 cm [facility] Body weight 2022-08-02 19:33:00 97.977 kg [facility] BMI 2022-08-02 19:33:00 37.08 kg/m2 [facility] Systolic blood pressure 2022-07-24 15:18:00 130 mm[Hg] [facility] Diastolic blood pressure 2022-07-24 15:18:00 86 mm[Hg] [facility] Heart rate 2022-07-24 15:18:00 73 /min [facility] Body height 2022-07-24 15:18:00 162.6 cm [facility] Body weight 2022-07-24 15:18:00 100.245 kg [facility] BMI 2022-07-24 15:18:00 37.93 kg/m2 [facility] Oxygen saturation in Arterial blood by Pulse oximetry 2022-07-24 15:18:00 98 /min [facility] Systolic blood pressure 2022-07-18 16:04:00 128 mm[Hg] [facility] Diastolic blood pressure 2022-07-18 16:04:00 86 mm[Hg] [facility] Heart rate 2022-07-18 16:04:00 83 /min [facility] Body height 2022-07-18 16:04:00 162.6 cm [facility] Body weight 2022-07-18 16:04:00 97.523 kg [facility] BMI 2022-07-18 16:04:00 36.90 kg/m2 [facility] Oxygen saturation in Arterial blood by Pulse oximetry 2022-07-18 16:04:00 100 /min [facility] Systolic blood pressure 2022-07-17 17:07:00 122 mm[Hg] [facility] Diastolic blood pressure 2022-07-17 17:07:00 90 mm[Hg] [facility] Heart rate 2022-07-17 17:07:00 74 /min [facility] Body temperature 2022-07-17 17:07:00 36.72 [place] [facility] Respiratory rate 2022-07-17 17:07:00 16 /min [facility] Body height 2022-07-17 17:07:00 162.6 cm [facility] Body weight 2022-07-17 17:07:00 97.569 kg [facility] BMI 2022-07-17 17:07:00 36.92 kg/m2 [facility] Oxygen saturation in Arterial blood by Pulse oximetry 2022-07-17 17:07:00 98 /min [facility] Systolic blood pressure 2022-06-30 21:20:00 101 mm[Hg] [facility] Diastolic blood pressure 2022-06-30 21:20:00 70 mm[Hg] [facility] Heart rate 2022-06-30 21:20:00 76 /min [facility] Respiratory rate 2022-06-30 21:10:00 18 /min [facility] Body temperature 2022-06-30 20:27:00 36.67 [place] [facility] Body height 2022-06-30 20:27:00 162.6 cm [facility] Body weight 2022-06-30 20:27:00 90.719 kg [facility] BMI 2022-06-30 20:27:00 34.33 kg/m2 [facility] Oxygen saturation in Arterial blood by Pulse oximetry 2022-06-30 20:27:00 95 /min [facility] Systolic blood pressure 2022-06-20 16:23:00 117 mm[Hg] [facility] Diastolic blood pressure 2022-06-20 16:23:00 77 mm[Hg] [facility] Heart rate 2022-06-20 16:23:00 87 /min [facility] Body temperature 2022-06-20 16:23:00 37 [place] [facility] Respiratory rate 2022-06-20 16:23:00 18 /min [facility] Body height 2022-06-20 16:23:00 162.6 cm [facility] Body weight 2022-06-20 16:23:00 95.709 kg [facility] BMI 2022-06-20 16:23:00 36.22 kg/m2 [facility] Body weight 2022-06-09 15:45:00 91.173 kg [facility] BMI 2022-06-09 15:45:00 34.50 kg/m2 [facility] Systolic blood pressure 2022-05-16 15:31:00 133 mm[Hg] [facility] Diastolic blood pressure 2022-05-16 15:31:00 87 mm[Hg] [facility] Heart rate 2022-05-16 15:31:00 87 /min [facility] Respiratory rate 2022-05-16 15:31:00 12 /min [facility] Body height 2022-05-16 15:31:00 162.6 cm [facility] Body weight 2022-05-16 15:31:00 91.173 kg [facility] BMI 2022-05-16 15:31:00 34.50 kg/m2 [facility] Oxygen saturation in Arterial blood by Pulse oximetry 2022-05-16 15:31:00 99 /min [facility] Procedures Procedure Date / Time Performed Performing Clinician Source POCT HEMOGLOBIN A1C TEST 2024-05-05 18:27:00 Marie Garzon [facility] FLU VACC ([id number]), 6 MO-6 4 YRS, .5ML, IM, TIV (FLUCELVAX) 2024-04-21 21:31:52 Doctor Unassigned, Odum [facility] US PELVIS COMPLETE WITH TRANSVAGINAL 2024-04-21 21:09:55 Carmen Figueroa [facility] SURGICAL PATHOLOGY EXAM 2024-03-24 17:00:00 Maril[place], [facility] [id number] - [place] ANRCT XM SURG REQ ANES GENERAL SPI/EDRL DX 2024-03-24 16:15:00 Marilu [facility] [id number] - [place] BX ANORECTAL WALL ANAL APPROACH 2024-03-24 16:15:00 Marilu [facility] [id number] - [place] ANOSCOPY W/BX SINGLE/MULTIPLE 2024-03-24 16:15:00 Marilu [facility] FISSURECTOMY 2024-03-24 16:15:00 Marilu [facility] POCT GLUCOSE (AUTOMATED) 2024-03-24 14:47:00 Marilu, [facility] POCT GLUCOSE (AUTOMATED) 2024-03-24 14:47:00 Marilu [facility] POCT TEST 2024-03-24 14:30:00 [facility] 2024-03-24 14:30:00 Jhon Vásquez [facility] FL TIME OR (NON-REPORTABLE) 2024-03-20 18:54:00 Curtis Morley [facility] POCT GLUCOSE (AUTOMATED) 2024-03-20 18:00:00 Curtis Morley [facility] POCT TEST 2024-03-20 17:40:00 Curtis Morley [facility] POCT HEMOGLOBIN A1C TEST 2024-02-04 00:00:00 Marie Garzon [facility] POCT URINALYSIS W/O SPECIFIC GRAVITY 2023-12-19 19:30:00 Abiel Alfaro [facility] POCT TEST 2023-12-19 19:16:00 Abiel Alfaro [facility] POCT HEMOGLOBIN A1C TEST 2023-10-15 20:36:00 Marie Garzon [facility] FL TIME OR (NON-REPORTABLE) 2023-09-12 21:03:57 Curtis Morley Scooter [facility] POCT GLUCOSE (AUTOMATED) 2023-09-12 20:21:00 Curtis Morley [facility] POCT TEST 2023-09-12 20:03:00 Curtis Morley [facility] CONSENT/REFUSAL FOR DIAGNOSI S AND TREATMENT 2023-09-12 19:54:45 Doctor Unassigned, Odum [facility] ANTIPHOSPHOLIPID ANTIBODY EVALUATION-SST 2023-09-10 22:21:00 Carmen Figueroa [facility] ANTIPHOSPHOLIPID ANTIBODY TE STS AND EVALUATION 2023-09-10 22:21:00 Brianna Figueroasol [facility] ANTIPHOSPHOLIPID ANTIBODY EVALUATION-LT BLUE 2023-09-10 22:21:00 Brianna Figueroasol [facility] CONSENT FOR CONTRACEPTION 2023-09-10 06:01:00 Doctor Unassigned, Odum [facility] FLU VACC (), 6 MO-6 4 YRS, .5ML, IM, QUAD (FLUCELVAX) 2023-06-06 18:56:21 Taylor Verdin [facility] PNEUMOCOCCAL VACCINE, 23-RUTHIE ENT (PNEUMOVAX) 2023-06-06 18:56:20 Taylor Verdin [facility] FL TIME OR (NON-REPORTABLE) 2023-05-11 19:01:23 Curtis Morley [facility] POCT GLUCOSE (AUTOMATED) 2023-05-11 18:11:00 Curtis Morley [facility] RPR (DX) W/REFL TITER AND$CONFIRMATORY TESTING-Q 2023-05-02 18:53:00 Ez Palacio [facility] POCT TEST 2023-05-02 00:00:00 Ez Palacio [facility] SURGICAL PATHOLOGY EXAM 2023-04-09 14:05:00 Norbert Diaz [facility] ESOPHAGOGASTRODUODENOSCOPY 2023-04-09 13:44:00 Norbert Diaz [facility] EGD (ENDO) 2023-04-09 13:39:47 Taylor Verdin [facility] EGD (ENDO) 2023-04-09 13:39:47 Taylor Verdin [facility] POCT GLUCOSE (AUTOMATED) 2023-04-09 13:03:00 Norbert Diaz [facility] POCT GLUCOSE (AUTOMATED) 2023-04-09 13:03:00 Norbert Diaz [facility] ASSIGNMENT OF BENEFITS 2023-04-09 12:30:17 Doctor Unassigned, Odum [facility] POCT TEST 2023-04-09 00:00:00 Tacos Roman [facility] POCT TEST 2023-04-09 00:00:00 Tacos Roman [facility] DME/SUPPLY JUSTIFICATION 2023-03-19 05:01:00 Doctor Unassigned, Odum [facility] PATIENT QUESTIONNAIRE 2023-02-18 05:01:00 Doctor Unassigned, Odum [facility] DME/SUPPLY JUSTIFICATION 2023-01-30 05:01:00 Doctor Unassigned, Odum [facility] COMP. METABOLIC PANEL ([id number]) 2023-01-09 15:40:00 Harjinder James [facility] SEDIMENTATION RATE 2023-01-09 [facility]:40[facility] 2023-01-09 15:40:00 Harjinder James [facility] VITAMIN D, 25-OH 2023-01-09 15:40:00 Harjinder James [facility] ANTICARDIOLIPIN ANTIBODIES 2023-01-01 [facility]:54[facility]OTE[facility] AB 2023-01-01 15:54:00 Ez Palacio [facility] DISCLOSURE AND CONSENT, MEDI MAYTE AND SURGICAL PROCEDURES 2023-01-01 05:01:00 Doctor Unassigned, Odum [facility] FL TIME OR (NON-REPORTABLE) 2022-12-11 15:57:25 Curtis Morley [facility] POCT GLUCOSE (AUTOMATED) 2022-12-11 15:06:00 Curtis Morley [facility] POCT TEST 2022-12-11 14:45:00 Curtis Morley [facility] POCT SARS-COV-2 ANTIGEN (BIN AX NOW) 2022-11-29 17:25:00 Taylor Verdin [facility] POCT MOLECULAR STREP 2022-11-29 17:07:00 Taylor Verdin [facility] EMG/NCV 2022-10-26 05:01:00 Skyler Ferrari [facility] AUTHORIZATION TO RELEASE PHI TO [facility] 2022-10-18 06:01:00 Doctor Unassigned, Odum [facility] FL TIME OR (NON-REPORTABLE) 2022-09-15 17:38:14 Curtis Morley [facility] POCT GLUCOSE (AUTOMATED) 2022-09-15 16:38:00 Curtis Morley [facility] POCT TEST 2022-09-15 16:30:00 Curtis Morley [facility] CONSENT/REFUSAL FOR DIAGNOSI S AND TREATMENT 2022-09-12 15:19:35 Doctor Unassigned, Odum [facility] MISCELLANEOUS SEND OUT TEST 2022-08-21 16:05:00 [facility] DIAGNOSTIC MANAGEMENT TEAM; SPECIAL COAGULATION EVALUATION 2022-08-21 16:05:00 [facility] ANTIPHOSPHOLIPID ANTIBODY TE STS AND EVALUATION 2022-08-21 16:05:00 [facility] ANTIPHOSPHOLIPID ANTIBODY EVALUATION-LT BLUE 2022-08-21 16:05:00 [facility] ANTICARDIOLIPIN ANTIBODIES 2022-08-21 16:05:00 [facility] ANTI-B2 GLYCOPROTEIN I AB 2022-08-21 16:05:00 [facility] ANTIPHOSPHOLIPID ANTIBODY EVALUATION-SST 2022-08-21 16:05:00 [facility] MR LUMBAR SPINE WO CONTRAST 2022-08-16 20:31:57 Skyler Ferrari [facility] US PELVIS COMPLETE WITH TRANSVAGINAL 2022-07-26 15:39:56 [facility] POCT TEST 2022-07-17 00:00:00 Ez Palacio [facility] [place] TIME OR (NON-REPORTABLE) 2022-06-30 21:00:00 Curtis Morley [facility] POCT TEST 2022-06-30 20:15:00 Curtis Morley [facility] POCT TEST 2022-06-20 00:00:00 AdumArgentina [facility] DISCLOSURE AND CONSENT, MEDI AMYTE AND SURGICAL PROCEDURES 2022-06-16 05:01:00 Doctor Unassigned, Odum [facility] Encounters Start Date/Time End Date/Time Encounter Type Admission Type Attending Clinicians Care Facility Care Department Encounter ID Source 2024-08-04 10:10:24 Outpatient AZALIA ORELLANA PAMELA [facility] [id number] [facility] 2024-01-25 11:33:33 Outpatient AZALIA ORELLANA [facility] [id number] [facility] 2021-11-08 15:18:20 Outpatient AZALIA ORELLANA [facility] [id number] [facility] 2021-06-13 16:13:[address] [facility] [id number] [facility] 2021-06-12 19:13:39 Outpatient AZALIA MCIHEL [facility] [id number] [facility] 2021-06-12 02:02:49 Outpatient CURTIS MORLEY [facility] [id number] [facility] 2021-06-10 22:07:19 [id number] 2024-09-15 14:30:00 2024-09-15 14:30:00 Outpatient CURTIS HARRISON [facility] [id number] [facility] 2024-08-12 16:00:00 2024-08-12 16:00:00 Outpatient ROSIBEL MATHIAS [facility] [id number] [facility] 2024-08-11 00:00:00 2024-08-11 12:18:45 Telephone Juan Manuel Carmen porter [facility] 1.114 350.1.13.10 [id number] [id number] [facility] 2024-08-07 14:00:00 2024-08-07 14:00:00 Outpatient R [facility] [id number] [facility] 2024-08-04 13:30:00 2024-08-04 13:30:00 Outpatient R MARIE GARZON [facility] [id number] [facility] 2024-07-30 14:00:00 2024-07-30 23:59:00 Outpatient R GERALD VILLAVICENCIO [facility] [id number] [facility] 2024-07-30 14:00:00 2024-07-30 23:59:00 Hospital Encounter [facility] 1.114 350.1.13.10 4.2.7.2.686 [id number] [facility] 2024-07-30 13:20:00 2024-07-30 14:20:11 Office Visit Gerald Villavicenc[facility] 1..114 350.1.13.10 4.2.7.2.686 [id number] [facility] 2024-07-24 00:00:00 2024-07-25 07:52:54 Solis Ramos [facility] 1.840.114 350.1.13.10 4.2.7.2.686 [id number] [facility] 2024-07-24 00:00:00 2024-07-25 05:17:01 Solis Ramos [facility] [id number] 350.1.13.10 4.2.7.2.686 [id number] [facility] 2024-07-24 00:00:00 2024-07-24 13:47:45 Refill Holly Fregoso [facility] [id number] 350.1.13.10 4.2.7.2.686 [id number] [facility] 2024-07-24 00:00:00 2024-07-24 13:21:02 Refill Beth Pham [facility] [id number] 350.1.13.10 4.2.7.2.686 [id number] [facility] 2024-07-24 00:00:00 2024-07-24 13:13:06 Telephone Azalia Michel [facility] 1..840.114 350.1.13.10 4.2.7.2.686 [id number] [facility] 2024-07-22 11:00:00 2024-07-22 11:00:00 Outpatient R MARIE GARZON [facility] [id number] [facility] 2024-07-18 00:00:00 2024-07-21 15:34:52 Telephone [facility] 1..840.114 350.1.13.10 4.2.7.2.686 [id number] [facility] 2024-07-17 14:00:00 2024-07-17 15:46:11 Outpatient R AZALIA MICHEL PAMELA [facility] [id number] [facility] 2024-07-17 14:00:00 2024-07-17 15:46:11 Office Visit Azalia Michel [facility] 1.84.114 350.1.13.10 4.2.7.2.686 [id number] [facility] 2024-07-14 13:00:00 2024-07-14 13:00:00 Outpatient R MARIE GARZON [facility] [id number] [facility] 2024-07-09 00:00:00 2024-07-09 22:43:39 Refill Matheus [facility] MEDICAL OFF[facility] BUILDING 1.84.114 350.1.13.10 4.2.7.2.686 [id number] 044 [id number] [facility] 2024-07-05 00:00:00 2024-07-08 15:34:19 [facility] 1.84.114 350.1.13.10 4.2.7.2.686 [id number] 044 [id number] [facility] 2024-07-07 13:00:00 2024-07-07 13:00:00 Outpatient R MARIE GARZON [facility] [id number] [facility] 2024-07-02 00:00:00 2024-07-02 16:37:58 [facility] MEDICAL OFFICE BUILDING 1.84.114 350.1.13.10 4.2.7.2.686 [id number] [facility] 2024-06-25 13:00:00 2024-06-25 13:45:54 Outpatient R CURTIS MORLEY [facility] [id number] [facility] 2024-06-25 13:00:00 2024-06-25 13:45:54 Office Visit Curtis Morley [facility] 1..114 350.1.13.10 4.2.7.2.686 [id number] 011 [id number] [facility] 2024-06-22 00:00:00 2024-06-24 13:06:15 Solis RamosAdelaida [facility] MEDICAL OFFICE BUILDING 1.840.114 350.1.13.10 4.2.7.2.686 [id number] 044 [id number] [facility] 2024-06-20 00:00:00 2024-06-23 10:29:41 Telephone Curtis Morley [facility] 1.114 350.1.13.10 4.2.7.2.686 [id number] 011 [id number] [facility] 2024-06-20 00:00:00 2024-06-23 09:49:31 Patient Secure Msradha Ramirez [facility] MEDICAL OFFICE BUILDING 1.840.114 350.1.13.10 4.2.7.2.686 [id number] 044 [id number] [facility] 2024-06-20 11:30:00 2024-06-20 11:55:28 Outpatient R SOPHIA RAMIREZ [facility] [id number] [facility] 2024-06-20 11:30:00 2024-06-20 11:55:28 Office Visit Zachariah [facility] MEDICAL OFFICE BUILDING 1.84.114 350.1.13.10 4.2.7.2.686 [id number] 044 [id number] [facility] 2024-06-19 14:00:00 2024-06-19 14:00:00 Outpatient R CURTIS MORLEY [facility] [id number] [facility] 2024-06-17 00:00:00 2024-06-17 11:28:52 Telephone Peyman [facility] 1.84.114 350.1.13.10 4.2.7.2.686 [id number] 011 [id number] [facility] 2024-06-16 09:40:00 2024-06-16 09:40:00 Outpatient [facility] [id number] [facility] 2024-05-05 00:00:00 2024-06-07 18:23:25 Patient Secure Curtis Figueroa [facility] 1..840.114 350.1.13.10 4.2.7.2.686 [id number] 011 [id number] [facility] 2024-05-15 00:00:00 2024-05-21 09:32:30 Telephone Skyler Ferrari [facility] MED[facility] OFF[facility] BU[facility] 1..840.114 350.1.13.10 4.2.7.2.686 [id number] [id number] [facility] 2024-05-20 00:00:00 2024-05-21 07:24:40 Refjo-ann Ramos [facility] MED[facility] 1..840.114 350.1.13.10 4.2.7.2.686 [id number] 044 [id number] [facility] 2024-05-20 10:00:00 2024-05-20 10:52:02 Outpatient BIA TURPIN [facility] [id number] [facility] 2024-05-20 10:00:00 2024-05-20 10:52:02 [facility] MED[facility] 1.2.840.114 350.1.13.10 4.2.7.2.686 [id number] 092 [id number] [facility] 2024-05-19 13:30:00 2024-05-19 13:30:00 Outpatient BIA TURPIN [facility] [id number] [facility] 2024-04-05 00:00:00 2024-05-10 18:25:19 Patient Secure Azalia Sepulveda [facility] NAL BUILDING 1.84.114 350.1.13.10 4.2.7.2.686 [id number] [facility] 2024-05-05 13:30:00 2024-05-05 14:02:00 Outpatient R MARIE GARZON [facility] [id number] [facility] 2024-05-05 13:30:00 2024-05-05 14:02:00 Office Visit Marie Garzon [facility] 1.84.114 350.1.13.10 4.2.7.2.686 [id number] 220 [id number] [facility] 2024-04-30 00:00:00 2024-04-30 16:13:45 Letter (Out) [facility] 1.84.114 350.1.13.10 4.2.7.2.686 [id number] [facility] 2024-04-21 15:11:30 2024-04-21 23:59:00 Outpatient R KERR-HYACINTH S, CARMEN KERR-HYACINTH S, CARMEN [facility] [id number] [facility] 2024-04-21 15:00:00 2024-04-21 23:59:00 Hospital Encounter Kerr-Hyacinth s, Carmen [facility] 1.84.114 350.1.13.10 4.2.7.2.686 [id number] [facility] 2024-04-21 16:10:00 2024-04-21 16:30:00 Imm/Inj Visit Nurse, Raj porter, Carmen Nurse, Raj Deng [facility] 1.84.114 350.1.13.10 4.2.7.2.686 [id number] 044 [id number] [facility] 2024-04-21 14:20:00 2024-04-21 14:51:49 Office Visit Adelaida Ramos [facility] MED[facility] OFF[facility] BUILDING 1.2840.114 350.1.13.10 4.2.7.2.686 [id number] 044 [id number] [facility] 2024-04-18 00:00:00 2024-04-18 11:09:17 Telephone Juan Manuel porter [facility] BUILDING 1.2.114 350.1.13.10 4.2.7.2.686 [id number] [facility] 2024-04-18 00:00:00 2024-04-18 09:28:46 Case Management Juan Manuel porter [facility] BUILDING 1..114 350.1.13.10 4.2.7.2.686 [id number] 134 [id number] [facility] 2024-04-16 00:00:00 2024-04-16 11:38:28 Marie Zabala [facility] 1.114 350.1.13.10 4.2.7.2.686 [id number] 220 [id number] [facility] 2024-04-15 15:00:00 2024-04-15 15:29:22 Outpatient R CARMEN ESPINOZA [facility] [id number] [facility] 2024-04-15 15:00:00 2024-04-15 15:29:22 Office [facility] 1.284.114 350.1.13.10 4.2.7.2.686 [id number] [facility] 2024-03-11 00:00:00 2024-04-12 18:20:07 Patient Secure Msg Doctor Unassigned, Odum Doctor Unassigned, Odum [facility] 1.840.114 350.1.13.10 4.2.7.2.686 [id number] [id number] [facility] 2024-04-10 11:45:00 2024-04-10 13:36:21 Outpatient R AZALIA MICHEL AZALIA [facility] [id number] [facility] 2024-04-10 11:45:00 2024-04-10 13:36:21 Office Visit Azalia [facility] 1..114 350.1.13.10 4.2.7.2.686 [id number] [facility] 2024-04-07 00:00:00 2024-04-07 16:12:34 Telephone Beth Pham [facility] MULTISPEC IALTY CENTER AND [facility] 1.114 350.1.13.10 4.2.7.2.686 [id number] 011 [id number] [facility] 2024-04-05 00:00:00 2024-04-07 14:32:20 Refill Beth Pham [facility] M[facility]PEC [facility] 1.114 350.1.13.10 4.2.7.2.686 [id number] 011 [id number] [facility] 2024-04-05 00:00:00 2024-04-07 09:44:40 Taylor Vega [facility] BUILD[facility] 1.84.114 350.1.13.10 4.2.7.2.686 [id number] [id number] [facility] 2024-04-05 00:00:00 2024-04-05 17:52:40 Telephone Azalia Michel [facility] NAL BUILDING 1.840.114 350.1.13.10 4.2.7.2.686 [id number] [facility] 2024-04-04 15:30:00 2024-04-04 16:02:49 Outpatient R BETH PHAM [facility] [id number] [facility] 2024-04-04 15:30:00 2024-04-04 16:02:49 Telemedici ne Visit Beth Pham [facility] 1.840.114 350.1.13.10 4.2.7.2.686 [id number] [id number] [facility] 2024-04-02 00:00:00 2024-04-03 09:32:23 Marie Zabala [facility] 1.840.114 350.1.13.10 4.2.7.2.686 [id number] [facility] 2024-03-26 00:00:00 2024-03-27 13:39:41 Patient Secure Msg Marilu [facility] BUILDING 1.840.114 350.1.13.10 4.2.7.2.686 [id number] [facility] 2024-03-25 00:00:00 2024-03-26 08:40:26 RefBeth Pepper [facility] 1.84.114 350.1.13.10 4.2.7.2.686 [id number] 011 [id number] [facility] 2024-03-25 00:00:00 2024-03-25 22:30:00 Patient Secure Msg Marilu [facility] BUILDING 1..840.114 350.1.13.10 4.2.7.2.686 [id number] [facility] 2024-03-24 08:38:00 2024-03-24 13:51:00 Outpatient R AZALIA MICHEL PAMELA [facility] [id number] [facility] 2024-03-24 08:38:00 2024-03-24 13:51:00 Hospital Encounter Azalia Michel [facility] 1.2.840.114 350.1.13.10 4.2.7.2.686 [id number] [id number] [facility] 2024-03-24 10:34:00 2024-03-24 11:48:00 Surgery Hortensia Michelela [facility] 1.2.840.114 350.1.13.10 4.2.7.2.686 [id number] 020 [id number] [facility] 2024-03-21 00:00:00 2024-03-24 10:25:23 Telephone Marie Garzon [facility] BUILD[facility] 1.2840.114 350.1.13.10 4.2.7.2.686 [id number] 220 [id number] [facility] 2024 00:00:00 2024-03-22 18:22:25 Patient Secure Ms Azalia Michel [facility] 1.2.840.114 350.1.13.10 4.2.7.2.686 [id number] [facility] 2024-03-21 00:00:00 2024-03-21 13:03:48 Telephone [facility] 1.2.840.114 350.1.13.10 4.2.7.2.686 [id number] 011 [id number] [facility] 2024-03-20 12:45:16 2024-03-20 23:59:00 Outpatient R CURTIS MORLEY [facility] [id number] [facility] 2024-03-20 12:45:16 2024-03-20 23:59:00 Hospital Encounter Curtis Morley [facility] MULTISPEC IALTY CENTER [facility] 1.2.840.114 350.1.13.10 4.2.7.2.686 [id number] [facility] 2024-03-14 00:00:00 2024-03-20 13:52:35 Marie Zabala. [facility] 1.840.114 350.1.13.10 4.2.7.2.686 [id number] [facility] 2024-03-20 13:00:00 2024-03-20 13:30:00 Office Visit Curtis Morley [facility] M[facility]ISPEC [facility]ALTY CENTER [facility] 1.2.840.114 350.1.13.10 4.2.7.2.686 [id number] 011 [id number] [facility] 2024-03-17 00:00:00 2024-03-17 13:56:12 [facility] 1.2.840.114 350.1.13.10 4.2.7.2.686 [id number] 011 [id number] [facility] 2024-03-14 00:00:00 2024-03-14 15:35:58 Beth Prasad [facility] MULTISPEC [facility]TY CENTER [facility] 1.2.840.114 350.1.13.10 4.2.7.2.686 [id number] 011 [id number] [facility] 2024-03-14 00:00:00 2024-03-14 14:36:12 Telephone Azalia Michel [facility] 1..840.114 350.1.13.10 4.2.7.2.686 [id number] 408 [id number] [facility] 2024-03-14 00:00:00 2024-03-14 14:28:03 Prep For Surgery Azalia Michel [facility] 1.2.840.114 350.1.13.10 4.2.7.2.686 [id number] 408 [id number] [facility] 2024-03-14 00:00:00 2024-03-14 12:39:52 Refill Taylor Verdin [facility] 1.2.840.114 350.1.13.10 4.2.7.2.686 [id number] 044 [id number] [facility] 2024-02-15 00:00:00 2024-03-14 09:43:14 Patient Secure Msg Marilu Azalia [facility] 1.2.840.114 350.1.13.10 4.2.7.2.686 [id number] 408 [id number] [facility] 2024-03-14 00:00:00 2024-03-14 08:02:59 Refill Vanda Morales [facility] 1.2.840.114 350.1.13.10 4.2.7.2.686 [id number] [id number] [facility] 2024-03-14 00:00:00 2024-03-14 07:32:28 Refill Beth Pham [facility] MULTISPEC IALTY CENTER [facility] 1.2.840.114 350.1.13.10 4.2.7.2.686 [id number] [id number] [facility] 2024-03-06 00:00:00 2024-03-13 10:34:36 Refill Marilu Azalia [facility] 1.2.840.114 350.1.13.10 4.2.7.2.686 [id number] [facility] 2024-03-13 00:00:00 2024-03-13 08:10:45 Telephone Azalia Michel [facility] 1.2.840.114 350.1.13.10 4.2.7.2.686 [id number] [facility] 2024-03-06 00:00:00 2024-03-07 12:47:07 Refill Taylor Verdin [facility] MEDICAL OFFICE BUILDING 1.2.840.114 350.1.13.10 4.2.7.2.686 [id number] 044 [id number] [facility] 2024-03-04 00:00:00 2024-03-04 16:51:56 Telephone Azalia Michel [facility] 1.2.840.114 350.1.13.10 4.2.7.2.686 [id number] [facility] 2024-02-27 00:00:00 2024-02-28 09:44:29 Refill Taylor Verdin [facility] MEDICAL OFFICE BUILDING 1.2.840.114 350.1.13.10 4.2.7.2.686 [id number] 044 [id number] [facility] 2024-02-27 00:00:00 2024-02-27 17:17:06 Refill [facility] 1.2.840.114 350.1.13.10 4.2.7.2.686 [id number] 011 [id number] [facility] 2024-02-12 00:00:00 2024-02-13 16:38:47 Patient Secure Marie Dietrich. [facility] MEDICAL OFFICE BUILDING 1.2.840.114 350.1.13.10 4.2.7.2.686 [id number] 220 [id number] [facility] 2024-02-12 00:00:00 2024-02-12 16:57:41 Patient Secure Marie Dietrich. [facility] MEDICAL OFFICE BUILDING 1.2.840.114 350.1.13.10 4.2.7.2.686 [id number] 220 [id number] [facility] 2024-02-08 00:00:00 2024-02-12 15:03:08 Refill Taylor Verdin [facility] MEDICAL OFFICE BUILDING 1.2.840.114 350.1.13.10 4.2.7.2.686 [id number] 044 [id number] [facility] 2024-02-07 00:00:00 2024-02-08 17:41:01 Refill Beth Pham [facility] MULT[facility]PEC [facility] 1.2.840.114 350.1.13.10 4.2.7.2.686 [id number] 011 [id number] [facility] 2024-02-07 00:00:00 2024-02-08 11:00:00 Refill Taylor Verdin [facility] MEDICAL OFFICE BUILDING 1.2.840.114 350.1.13.10 4.2.7.2.686 [id number] 044 [id number] [facility] 2024-02-07 00:00:00 2024-02-08 08:33:55 Refill Vanda Morales [facility] 1.2.840.114 350.1.13.10 4.2.7.2.686 [id number] [id number] [facility] 2024-02-07 14:45:00 2024-02-07 15:38:04 Outpatient R YAA DRUMMOND WENJIE [facility] [id number] [facility] 2024-02-07 14:45:00 2024-02-07 15:38:04 Office Visit Yaa Drummond [facility] 1.840.114 350.1.13.10 4.2.7.2.686 [id number] [facility] 2024-02-06 13:30:00 2024-02-06 14:14:08 Outpatient R CASJESSICA ARGENTINA CASJESSICAARGENTINA [facility] [id number] [facility] 2024-02-06 13:30:00 2024-02-06 14:14:08 Office Visit Argentina Looney Young [facility] 1.840.114 350.1.13.10 4.2.7.2.686 [id number] 134 [id number] [facility] 2024-02-05 16:30:46 2024-02-05 16:30:46 Outpatient [facility] [id number] Chalino Esteban 2024-02-04 14:30:00 2024-02-04 15:19:52 Outpatient R MARIE GARZON [facility] [id number] [facility] 2024-02-04 14:30:00 2024-02-04 15:19:52 Office Visit Marie Garzon [facility] MEDICAL OFFICE BUILDING 1.840.114 350.1.13.10 4.2.7.2.686 [id number] 220 [id number] [facility] 2024-01-31 00:00:00 2024-02-04 10:44:50 Refill Taylor Verdin [facility] MEDICAL OFFICE BUILDING 1.840.114 350.1.13.10 4.2.7.2.686 [id number] 044 [id number] [facility] 2024-01-24 00:00:00 2024-01-24 16:31:06 Case Management Taylor Verdin [facility] MEDICAL OFFICE BUILDING 1.2.840.114 350.1.13.10 4.2.7.2.686 [id number] 044 [id number] [facility] 2024-01-24 00:00:00 2024-01-24 16:27:40 Patient Outreach Saumya Priest [facility] 1.2.840.114 350.1.13.10 4.2.7.2.686 [id number] 044 [id number] [facility] 2024-01-23 15:02:49 2024-01-23 23:59:00 Hospital Encounter Beth Pham [facility] 1.2.840.114 350.1.13.10 4.2.7.2.686 [id number] 809 [id number] [facility] 2024-01-23 15:02:48 2024-01-23 23:59:00 Hospital Encounter Vero Beth [facility] 1.2.840.114 350.1.13.10 4.2.7.2.686 [id number] [id number] [facility] 2024-01-23 14:20:00 2024-01-23 15:40:40 Outpatient R TAYLOR VERDIN [facility] [id number] [facility] 2024-01-23 14:20:00 2024-01-23 15:00:00 Office Visit Taylor Verdin [facility] MEDICAL OFFICE BUILDING 1.2.840.114 350.1.13.10 4.2.7.2.686 [id number] 044 [id number] [facility] 2024-01-15 16:15:00 2024-01-15 17:07:26 Outpatient R AZALIA MICHEL PAMELA [facility] [id number] [facility] 2024-01-15 16:15:00 2024-01-15 17:07:26 Office Visit Azalia Michel [facility] 1.2.840.114 350.1.13.10 4.2.7.2.686 [id number] [facility] 2024-01-15 14:30:00 2024-01-15 16:45:29 Office Visit Beth Pham [facility] MULTISPEC [facility]ALTY CENTER [facility] 1.2.840.114 350.1.13.10 4.2.7.2.686 [id number] 011 [id number] [facility] 2024-01-12 00:00:00 2024-01-15 11:47:11 Refill Taylor Verdin [facility] MEDICAL OFFICE BUILDING 1.2.840.114 350.1.13.10 4.2.7.2.686 [id number] 044 [id number] [facility] 2024-01-12 00:00:00 2024-01-14 08:11:03 Refill Curtis Mor[facility] 1.2.840.114 350.1.13.10 4.2.7.2.686 [id number] [id number] [facility] 2024-01-03 00:00:00 2024-01-03 10:30:49 Telephone Marie Garzon [facility] MEDICAL OFFICE BUILDING 1.2840.114 350.1.13.10 4.2.7.2.686 [id number] 220 [id number] [facility] 2023-12-26 00:00:00 2023-12-26 15:29:45 Refill Taylor Verdin [facility] MEDICAL OFFICE BUILDING 1.2.840.114 350.1.13.10 4.2.7.2.686 [id number] 044 [id number] [facility] 2023-12-25 00:00:00 2023-12-26 08:32:49 [facility] MEDICAL OFFICE BUILDING 1.2840.114 350.1.13.10 4.2.7.2.686 [id number] 220 [id number] [facility] 2023-12-24 00:00:00 2023-12-24 15:37:04 Telephone [facility] MEDICAL OFFICE BUILDING 1.2840.114 350.1.13.10 4.2.7.2.686 [id number] 220 [id number] [facility] 2023-12-19 13:45:00 2023-12-19 15:23:12 Outpatient R ABIEL ALFARO [facility] [id number] [facility] 2023-12-19 13:45:00 2023-12-19 15:23:12 Office Visit Abiel Alfaro [facility] [employer] SUPERVISOR OF [facility] 1.0.114 350.1.13.10 4.2.7.2.686 [id number] [facility] 2023-12-12 15:40:00 2023-12-12 15:40:00 Outpatient R TAYLOR VERDIN [facility] [id number] [facility] 2023-12-01 00:00:00 2023-12-01 00:00:00 RefTaylor Thomason [facility] 1.2840.114 350.1.13.10 4.2.7.2.686 [id number] [id number] [facility] 2023-11-07 00:00:00 2023-11-07 00:00:00 Telephone Keyla Fox [facility] 1.840.114 350.1.13.10 4.2.7.2.686 [id number] [facility] 2023-11-05 00:00:00 2023-11-05 00:00:00 Taylor Vega [facility] 1.840.114 350.1.13.10 4.2.7.2.686 [id number] [id number] [facility] 2023-10-19 00:00:00 2023-10-19 00:00:00 Patient Secure Msg Marie Garzon [facility] 1..114 350.1.13.10 4.2.7.2.686 [id number] [facility] 2023-10-16 00:00:00 2023-10-16 00:00:00 Patient Secure Msg Marie Garzon [facility] 1..114 350.1.13.10 4.2.7.2.686 [id number] 220 [id number] [facility] 2023-10-15 15:30:00 2023-10-15 15:45:00 Sanitation Worker Cleaning Equipment Visit Lab, Marie Hernandez [facility] 1.84.114 350.1.13.10 4.2.7.2.686 [id number] [facility] 2023-10-15 15:30:00 2023-10-15 15:30:00 Outpatient R MARIE GARZON [facility] [id number] [facility] 2023-10-15 14:30:00 2023-10-15 15:18:52 Office Visit Marie Garzon Yu [facility] 1.84.114 350.1.13.10 4.2.7.2.686 [id number] 220 [id number] [facility] 2023-10-13 00:00:00 2023-10-13 00:00:00 RefTaylor Thomason [facility] 1..840.114 350.1.13.10 4.2.7.2.686 [id number] [id number] [facility] 2023-10-08 13:00:00 2023-10-08 13:00:00 Outpatient BETH CASTRO [facility] [id number] [facility] 2023-09-25 00:00:00 2023-09-25 00:00:00 Telephone A Fourth Act [facility] 1..840.114 350.1.13.10 4.2.7.2.686 [id number] [facility] 2023-09-25 00:00:00 2023-09-25 00:00:00 Telephone Bharat Matrimony [facility] 1.840.114 350.1.13.10 4.2.7.2.686 [id number] [facility] 2023-09-20 00:00:00 2023-09-20 00:00:00 RefBeth Pepper [facility] 1.840.114 350.1.13.10 4.2.7.2.686 [id number] [facility] 2023-09-20 00:00:00 2023-09-20 00:00:00 Taylor Vega [facility] 1..840.114 350.1.13.10 4.2.7.2.686 [id number] [id number] [facility] 2023-09-14 00:00:00 2023-09-14 00:00:00 Patient Secure Msg Doctor Unassigned, Od[facility] 1.0.114 350.1.13.10 4.2.7.2.686 [id number] [facility] 2023-09-13 00:00:00 2023-09-13 00:00:00 Telephone PeymanCurtis [facility] 1.0.114 350.1.13.10 4.2.7.2.686 [id number] 011 [id number] [facility] 2023-09-12 14:13:36 2023-09-12 23:59:00 Outpatient R [facility] [id number] [facility] 2023-09-12 14:13:36 2023-09-12 23:59:00 [facility] 1..114 350.1.13.10 4.2.7.2.686 [id number] [facility] 2023-09-12 14:30:00 2023-09-12 15:00:00 [facility] 1..114 350.1.13.10 4.2.7.2.686 [id number] 011 [id number] [facility] 2023-09-12 00:00:00 2023-09-12 00:00:00 Orders Only Doctor Unassigned, Odum [facility] 1.840.114 350.1.13.10 4.2.7.2.686 [id number] 009 [id number] [facility] 2023-09-10 16:15:00 2023-09-10 16:30:00 Sanitation Worker Cleaning Equipment Visit 2, Adc Lab Carmen Espinoza [facility] BUILD[facility] 1.0.114 350.1.13.10 4.2.7.2.686 [id number] [facility] 2023-09-10 15:30:00 2023-09-10 16:15:28 Outpatient R JUAN MANUEL Porter, CARMENYoung Porter CARMEN [facility] [id number] [facility] 2023-09-10 15:30:00 2023-09-10 16:15:28 Office Visit Juan Manuel porter Carmen [facility] 1.840.114 350.1.13.10 4.2.7.2.686 [id number] [facility] 2023-09-10 00:00:00 2023-09-10 00:00:00 Telephone Curtis Morley [facility] MULTISPEC [facility] 1.0.114 350.1.13.10 4.2.7.2.686 [id number] 011 [id number] [facility] 2023-09-10 00:00:00 2023-09-10 00:00:00 Orders Only Doctor Unassigned, Odum [facility] 1.0.114 350.1.13.10 4.2.7.2.686 [id number] [id number] [facility] 2023-08-24 00:00:00 2023-08-24 00:00:00 Refill Beth Pham [facility] M[facility]ISPEC [facility] 1..114 350.1.13.10 4.2.7.2.686 [id number] 011 [id number] [facility] 2023-08-08 00:00:00 2023-08-08 00:00:00 Refill Taylor Verdin [facility] 1.840.114 350.1.13.10 4.2.7.2.686 [id number] 044 [id number] [facility] 2023-07-20 14:30:00 2023-07-20 14:30:00 Outpatient R KERR-HYACINTH S, CARMEN KERR-HYACINTH S, CARMEN [facility] [id number] [facility] 2023-07-20 14:30:00 2023-07-20 14:30:00 Outpatient R KERR-HYACINTH S, CARMEN KERR-HYACINTH S, CARMEN [facility] [id number] [facility] 2023-07-20 00:00:00 2023-07-20 00:00:00 Refill Richa Dominguez [facility] 1.2.840.114 350.1.13.10 4.2.7.2.686 [id number] [facility] 2023-07-16 13:30:00 2023-07-16 13:30:00 Outpatient R RICHA DOMINGUEZ YU [facility] [id number] [facility] 2023-06-28 00:00:00 2023-06-28 00:00:00 Refill Taylor Verdin [facility] 1.2.840.114 350.1.13.10 4.2.7.2.686 [id number] 044 [id number] [facility] 2023-06-25 13:30:00 2023-06-25 15:07:28 Outpatient R BETH PHAM [facility] [id number] [facility] 2023-06-25 13:30:00 2023-06-25 15:07:28 Office Visit Beth Pham [facility] 1..840.114 350.1.13.10 4.2.7.2.686 [id number] [id number] [facility] 2023-06-25 00:00:00 2023-06-25 00:00:00 Refill Taylor Verdin [facility]?ANNEErna [facility] 1.0.114 350.1.13.10 4.2.7.2.686 [id number] 044 [id number] [facility] 2023-06-15 00:00:00 2023-06-15 00:00:00 Refill Beth Pham [facility] 1..114 350.1.13.10 4.2.7.2.686 [id number] [id number] [facility] 2023-06-14 00:00:00 2023-06-14 00:00:00 Refill Richa Dominguez [facility] OFF[facility] 1..114 350.1.13.10 4.2.7.2.686 [id number] [facility] 2023-06-13 00:00:00 2023-06-13 00:00:00 Patient Secure MsRicha Clifton [facility] MED[facility] OFFICE BUILDING 1.114 350.1.13.10 4.2.7.2.686 [id number] 220 [id number] [facility] 2023-06-11 13:30:00 2023-06-11 14:13:46 Outpatient R RICHA DOMINGUEZ YU [facility] [id number] [facility] 2023-06-11 13:30:00 2023-06-11 14:13:46 Office Visit Richa Dominguez [facility]?KENNETH [facility] MED[facility] OFF[facility] BUILD[facility] 1..114 350.1.13.10 4.2.7.2.686 [id number] [facility] 2023-06-06 14:15:00 2023-06-06 14:30:00 Sanitation Worker Cleaning Equipment Visit Lab, Taylor De Jesus [facility] MEDICAL OFFICE BUILDING 1.2.840.114 350.1.13.10 4.2.7.2.686 [id number] [facility] 2023-06-06 13:40:00 2023-06-06 14:09:23 Outpatient R TAYLOR VERDIN [facility] [id number] [facility] 2023-06-06 13:40:00 2023-06-06 14:09:23 Office Visit Taylor Verdin Tameka [facility] MEDICAL OFFICE BUILDING 1..114 350.1.13.10 4.2.7.2.686 [id number] [id number] [facility] 2023-05-31 00:00:00 2023-05-31 00:00:00 Refill Taylor Verdin [facility] MEDICAL OFFICE BUILDING 1.114 350.1.13.10 4.2.7.2.686 [id number] 044 [id number] [facility] 2023-05-22 00:00:00 2023-05-22 00:00:00 Patient Secure Msg Doctor Unassigned, Odum [facility] 1.84.114 350.1.13.10 4.2.7.2.686 [id number] [facility] 2023-05-15 00:00:00 2023-05-15 00:00:00 Telephone Curtis Morley [facility] MULTISPEC [facility] 1.0.114 350.1.13.10 4.2.7.2.686 [id number] [id number] [facility] 2023-05-15 00:00:00 2023-05-15 00:00:00 Telephone Curtis Morley [facility] MULTISPEC [facility] 1.840.114 350.1.13.10 4.2.7.2.686 [id number] 011 [id number] [facility] 2023-05-11 13:16:47 2023-05-11 23:59:00 Outpatient R CURTIS MORLEY [facility] [id number] [facility] 2023-05-11 13:16:47 2023-05-11 23:59:00 [facility] 1.2.840.114 350.1.13.10 4.2.7.2.686 [id number] [facility] 2023-05-11 13:30:00 2023-05-11 14:00:00 Office Visit Curtis Morley [facility] 1.2.840.114 350.1.13.10 4.2.7.2.686 [id number] 011 [id number] [facility] 2023-05-09 00:00:00 2023-05-09 00:00:00 Telephone Curtis Morley [facility] 1.2.840.114 350.1.13.10 4.2.7.2.686 [id number] 011 [id number] [facility] 2023-05-09 00:00:00 2023-05-09 00:00:00 Patient Secure Msg Doctor Unassigned, Odum [facility] 1.2.840.114 350.1.13.10 4.2.7.2.686 [id number] [id number] [facility] 2023-05-08 00:00:00 2023-05-08 00:00:00 Telephone Ez Palacio [facility] 1.2.840.114 350.1.13.10 4.2.7.2.686 [id number] [facility] 2023-05-07 13:30:00 2023-05-07 13:30:00 Outpatient ELDER ORTIZ [facility] [id number] [facility] 2023-05-05 00:00:00 2023-05-05 00:00:00 Refill Taylor Verdin [facility]?KENNETH ALEJANDRA [facility]ILD[facility] 1.20.114 350.1.13.10 4.2.7.2.686 [id number] 044 [id number] [facility] 2023-05-02 13:00:00 2023-05-02 13:28:05 Outpatient R [facility] [id number] [facility] 2023-05-02 13:00:00 2023-05-02 13:28:05 Office Visit Ez Palacio [facility] 1..114 350.1.13.10 4.2.7.2.686 [id number] [facility] 2023-05-02 00:00:00 2023-05-02 00:00:00 Orders Only [facility] 1.0.114 350.1.13.10 4.2.7.2.686 [id number] [facility] 2023-05-01 00:00:00 2023-05-01 00:00:00 Refill Richa Dominguez [facility]?KENNETH ALEJANDRA [facility] OFF[facility]ILD[facility] 1.114 350.1.13.10 4.2.7.2.686 [id number] [facility] 2023-04-09 07:30:00 2023-04-09 10:06:00 Outpatient R NORBERT DIAZ [facility] [id number] [facility] 2023-04-09 07:30:00 2023-04-09 10:06:00 Hospital Encounter Norbert Diaz [facility] 1.2.114 350.1.13.10 4.2.7.2.686 [id number] [id number] [facility] 2023-04-09 08:54:00 2023-04-09 09:16:00 Anesthesia Event Yvonne Mehta Carlos [facility] 1.840.114 350.1.13.10 4.2.7.2.686 [id number] [id number] [facility] 2023-04-09 08:00:00 2023-04-09 08:30:00 Surgery Norbert Diaz [facility] 1.840.114 350.1.13.10 4.2.7.2.686 [id number] 020 [id number] [facility] 2023-04-09 00:00:00 2023-04-09 00:00:00 Orders Only Doctor Unassigned, Odum [facility] 1.0.114 350.1.13.10 4.2.7.2.686 [id number] [facility] 2023-04-07 00:00:00 2023-04-07 00:00:00 Taylor Vega [facility]?KENNETH MCKEON [facility] 1.84.114 350.1.13.10 4.2.7.2.686 [id number] 044 [id number] [facility] 2023-04-05 14:00:00 2023-04-05 15:28:11 Outpatient R EAMON CARRASCO RYAJA [facility] [id number] [facility] 2023-04-05 14:00:00 2023-04-05 15:28:11 Office Visit Eamon Carrasco [facility] 1..114 350.1.13.10 4.2.7.2.686 [id number] [id number] [facility] 2023-04-05 00:00:00 2023-04-05 00:00:00 Telephone Beth Pham [facility] MULTISPEC [facility] 1.840.114 350.1.13.10 4.2.7.2.686 [id number] [id number] [facility] 2023-04-02 00:00:00 2023-04-02 00:00:00 Taylor Vega [facility]H [facility] 1.840.114 350.1.13.10 4.2.7.2.686 [id number] 044 [id number] [facility] 2023-03-30 00:00:00 2023-03-30 00:00:00 Telephone [facility] Seg[facility] 1.840.114 350.1.13.10 4.2.7.2.686 [id number] 085 [id number] [facility] 2023-03-29 14:30:00 2023-03-29 15:00:00 Office Visit Naina Segov[facility] 1.0.114 350.1.13.10 4.2.7.2.686 [id number] [facility] 2023-03-29 14:30:00 2023-03-29 14:30:00 Outpatient R NAINA SEGOVIA [facility] [id number] [facility] 2023-03-21 12:30:00 2023-03-21 12:30:00 Outpatient R HOLLY FREGOSO [facility] [id number] [facility] 2023-03-19 00:00:00 2023-03-19 00:00:00 Telephone Beth Pham [facility] 1.0.114 350.1.13.10 4.2.7.2.686 [id number] 011 [id number] [facility] 2023-03-19 00:00:00 2023-03-19 00:00:00 Orders Only Doctor Unassigned, Odum [facility] 1..114 350.1.13.10 4.2.7.2.686 [id number] [facility] 2023-03-14 00:00:00 2023-03-14 00:00:00 Telephone Beth Pham [facility] 1..114 350.1.13.10 4.2.7.2.686 [id number] [id number] [facility] 2023-03-13 14:30:00 2023-03-13 15:27:42 Outpatient R BETH PHAM [facility] [id number] [facility] 2023-03-13 14:30:00 2023-03-13 15:27:42 Office Visit Beth Pham [facility] 1.84.114 350.1.13.10 4.2.7.2.686 [id number] [id number] [facility] 2023-03-12 10:00:00 2023-03-12 10:00:00 Outpatient NAINA CABALLERO [facility] [id number] [facility] 2023-03-11 00:00:00 2023-03-11 00:00:00 Radha Stafford [facility] 1.840.114 350.1.13.10 4.2.7.2.686 [id number] [facility] 2023-03-06 15:20:00 2023-03-06 16:11:30 Outpatient R TAYLOR VERDIN [facility] [id number] [facility] 2023-03-06 15:20:00 2023-03-06 16:11:30 Office Visit Taylor Verdin [facility]?ANNEErna [facility] BUILD[facility] 1.840.114 350.1.13.10 4.2.7.2.686 [id number] 044 [id number] [facility] 2023-03-06 00:00:00 2023-03-06 00:00:00 Refill Raul Wilkinson [facility]H [facility] 1.284.114 350.1.13.10 4.2.7.2.686 [id number] 044 [id number] [facility] 2023-02-25 00:00:00 2023-02-25 00:00:00 Refill Radha Trinidad [facility] 1.284.114 350.1.13.10 4.2.7.2.686 [id number] [facility] 2023-02-19 14:15:00 2023-02-19 14:26:26 Outpatient R DUNCAN RAMOS [facility] [id number] [facility] 2023-02-19 14:15:00 2023-02-19 14:26:26 Office Visit Duncan Ramos [facility]?KENNETH [facility] MED[facility] BUILD[facility] 1.84.114 350.1.13.10 4.2.7.2.686 [id number] [facility] 2023-02-18 00:00:00 2023-02-18 00:00:00 Orders Only Doctor Unassigned, Odum [facility] 1.2114 350.1.13.10 4.2.7.2.686 [id number] [facility] 2023-02-12 09:30:00 2023-02-12 09:30:00 Outpatient R RICHA DOMINGUEZ YU [facility] [id number] [facility] 2023-02-02 00:00:00 2023-02-02 00:00:00 Refill Radha Trinidad [facility] 1.84.114 350.1.13.10 4.2.7.2.686 [id number] [facility] 2023-01-30 15:00:00 2023-01-30 15:28:38 Outpatient R [facility] [id number] [facility] 2023-01-30 15:00:00 2023-01-30 15:28:38 Office Visit Paulo Chamorrossica [facility]?KENNETH [facility]ON [facility] 1.114 350.1.13.10 4.2.7.2.686 [id number] 092 [id number] [facility] 2023-01-30 00:00:00 2023-01-30 00:00:00 Curtis Iniguez [facility] MULTISPEC [facility] 1.114 350.1.13.10 4.2.7.2.686 [id number] [id number] [facility] 2023-01-30 00:00:00 2023-01-30 00:00:00 Orders Only Doctor Unassigned, Odum [facility] 1..114 350.1.13.10 4.2.7.2.686 [id number] [facility] 2023-01-29 00:00:00 2023-01-29 00:00:00 Radha Stafford [facility] 1.114 350.1.13.10 4.2.7.2.686 [id number] [facility] 2023-01-28 00:00:00 2023-01-28 00:00:00 Telephone Richa Dominguez [facility] 1.114 350.1.13.10 4.2.7.2.686 [id number] [facility] 2023-01-26 00:00:00 2023-01-26 00:00:00 Telephone SegoviaNaina [facility] 1.840.114 350.1.13.10 4.2.7.2.686 [id number] 085 [id number] [facility] 2023-01-25 00:00:00 2023-01-25 00:00:00 Refill Richa Dominguez [facility] MED[facility] OFF[facility] BUILD[facility] 1.840.114 350.1.13.10 4.2.7.2.686 [id number] 220 [id number] [facility] 2023-01-25 00:00:00 2023-01-25 00:00:00 Patient Secure Msg Naina Segovia [facility] 1.840.114 350.1.13.10 4.2.7.2.686 [id number] [id number] [facility] 2023-01-24 00:00:00 2023-01-24 00:00:00 Refill Radha Trinidad [facility] 1.0.114 350.1.13.10 4.2.7.2.686 [id number] [facility] 2023-01-24 00:00:00 2023-01-24 00:00:00 Telephone KeylaRicha [facility] MED[facility] OFF[facility] BUILD[facility] 1.840.114 350.1.13.10 4.2.7.2.686 [id number] 220 [id number] [facility] 2023-01-24 00:00:00 2023-01-24 00:00:00 Refill Taylor Verdin [facility] MED[facility] OFF[facility] BUILD[facility] 1.840.114 350.1.13.10 4.2.7.2.686 [id number] 044 [id number] [facility] 2023-01-24 00:00:00 2023-01-24 00:00:00 Sabrina Grant [facility] 1.2.840.114 350.1.13.10 4.2.7.2.686 [id number] 044 [id number] [facility] 2023-01-19 14:40:00 2023-01-19 15:02:51 Outpatient R TAYLOR VERDIN [facility] [id number] [facility] 2023-01-19 14:40:00 2023-01-19 15:02:51 Office Visit Taylor Verdin [facility] KEITH?KENNETH [facility]KEON [facility]ILD[facility] 1.2.840.114 350.1.13.10 4.2.7.2.686 [id number] 044 [id number] [facility] 2023-01-16 00:00:00 2023-01-16 00:00:00 Telephone Naina Segovia [facility] MULTISPEC [facility] 1.2.840.114 350.1.13.10 4.2.7.2.686 [id number] [id number] [facility] 2023-01-10 00:00:00 2023-01-10 00:00:00 Telephone Ez Palacio [facility] 1.2.840.114 350.1.13.10 4.2.7.2.686 [id number] [facility] 2023-01-09 10:45:00 2023-01-09 11:00:00 Sanitation Worker Cleaning Equipment Visit Vtc-Lab Harjinder James [facility] MULTISPEC [facility] 1.2.840.114 350.1.13.10 4.2.7.2.686 [id number] [facility] 2023-01-09 09:40:00 2023-01-09 10:34:43 Outpatient R HARJINDER JAMES [facility] [id number] [facility] 2023-01-09 09:40:00 2023-01-09 10:34:43 Office Visit Harjinder James [facility] 1.840.114 350.1.13.10 4.2.7.2.686 [id number] [id number] [facility] 2023-01-05 00:00:00 2023-01-05 00:00:00 Telephone Naina Segov[facility] 1.840.114 350.1.13.10 4.2.7.2.686 [id number] [id number] [facility] 2023-01-04 00:00:00 2023-01-04 00:00:00 Patient Secure Msradha Palacio [facility] 1.0.114 350.1.13.10 4.2.7.2.686 [id number] [facility] 2023-01-01 13:30:00 2023-01-01 14:22:24 Outpatient R ELDER TENA [facility] [id number] [facility] 2023-01-01 13:30:00 2023-01-01 14:22:24 Office Visit Vanda Morales Joseph Marc [facility] 1..114 350.1.13.10 4.2.7.2.686 [id number] [id number] [facility] 2023-01-01 10:45:00 2023-01-01 11:46:35 Sanitation Worker Cleaning Equipment Visit Lab, Raj - Ish [facility] VERENASOHEILA PARKER?[facility] 1..114 350.1.13.10 4.2.7.2.686 [id number] [facility] 2023-01-01 10:00:00 2023-01-01 10:26:07 Office Visit Bruce [facility] 1.2.840.114 350.1.13.10 4.2.7.2.686 [id number] [facility] 2023-01-01 00:00:00 2023-01-01 00:00:00 Orders Only Doctor Unassigned, Odum [facility] 1.2840.114 350.1.13.10 4.2.7.2.686 [id number] [facility] 2022-12-26 11:30:00 2022-12-26 11:30:00 Outpatient R EZ PALACIO CHERYAL [facility] [id number] [facility] 2022-12-26 00:00:00 2022-12-26 00:00:00 Telephone Radha Trinidad [facility] 1.840.114 350.1.13.10 4.2.7.2.686 [id number] [facility] 2022-12-11 10:04:30 2022-12-11 23:59:00 Outpatient R CURTIS MORLEY [facility] [id number] [facility] 2022-12-11 10:04:30 2022-12-11 23:59:00 Hospital Encounter Curtis Morley [facility] 1.0.114 350.1.13.10 4.2.7.2.686 [id number] [facility] 2022-12-11 10:30:00 2022-12-11 11:45:55 Office Visit Curtis Morley [facility] 1.0.114 350.1.13.10 4.2.7.2.686 [id number] [facility] 2022-12-11 10:00:00 2022-12-11 10:00:00 Outpatient R RICHA DOMINGUEZ YU [facility] [id number] [facility] 2022-12-11 00:00:00 2022-12-11 00:00:00 Radha Stafford [facility] 1.2.840.114 350.1.13.10 4.2.7.2.686 [id number] [facility] 2022-12-07 00:00:00 2022-12-07 00:00:00 Telephone Curtis Morley [facility] 1.840.114 350.1.13.10 4.2.7.2.686 [id number] [facility] 2022-12-07 00:00:00 2022-12-07 00:00:00 Patient Secure Msg Doctor Unassigned, Odum [facility] 1.2.840.114 350.1.13.10 4.2.7.2.686 [id number] [facility] 2022-12-06 00:00:00 2022-12-06 00:00:00 Telephone Vega Skyler Aquino [facility] 1.2.840.114 350.1.13.10 4.2.7.2.686 [id number] [facility] 2022-12-06 00:00:00 2022-12-06 00:00:00 Patient Secure Msg Vega Skyler Aquino [facility] 1.2.840.114 350.1.13.10 4.2.7.2.686 [id number] [facility] 2022-12-05 00:00:00 2022-12-05 00:00:00 Telephone Radha Trinidad [facility] 1.2.840.114 350.1.13.10 4.2.7.2.686 [id number] [facility] 2022-12-05 00:00:00 2022-12-05 00:00:00 Refill Taylor Verdin Tameka [facility] 1.0.114 350.1.13.10 4.2.7.2.686 [id number] [facility] 2022-12-05 00:00:00 2022-12-05 00:00:00 Telephone Skyler Ferrari [facility] 1.0.114 350.1.13.10 4.2.7.2.686 [id number] [id number] [facility] 2022-12-05 00:00:00 2022-12-05 00:00:00 Telephone Skyler Ferrari [facility] MEDICAL OFFICE BUILDING 1.0.114 350.1.13.10 4.2.7.2.686 [id number] [facility] 2022-11-30 15:00:00 2022-11-30 15:00:00 Outpatient R TAYLOR VERDIN [facility] [id number] [facility] 2022-11-29 11:30:00 2022-11-29 12:34:48 Outpatient R TAYLOR VERDIN [facility] [id number] [facility] 2022-11-29 11:30:00 2022-11-29 12:34:48 Office Visit Taylor Verdin [facility] MEDICAL OFFICE BUILD[facility] 1..114 350.1.13.10 4.2.7.2.686 [id number] [id number] [facility] 2022-11-29 00:00:00 2022-11-29 00:00:00 Telephone Naina Segovia [facility] 1..114 350.1.13.10 4.2.7.2.686 [id number] 085 [id number] [facility] 2022-11-28 00:00:00 2022-11-28 00:00:00 Case Management Naina Segovia [facility] 1.2840.114 350.1.13.10 4.2.7.2.686 [id number] 085 [id number] [facility] 2022-11-28 00:00:00 2022-11-28 00:00:00 Patient Secure Msg Naina Segovia [facility] 1.2840.114 350.1.13.10 4.2.7.2.686 [id number] 085 [id number] [facility] 2022-11-04 00:00:00 2022-11-04 00:00:00 Refill Holly Fregoso [facility] BUILD[facility] 1..840.114 350.1.13.10 4.2.7.2.686 [id number] [id number] [facility] 2022-11-02 00:00:00 2022-11-02 00:00:00 Refill Radha Trinidad [facility] 1.2.840.114 350.1.13.10 4.2.7.2.686 [id number] [facility] 2022-10-26 13:25:59 2022-10-26 23:59:00 Outpatient R MEGHAN MARKHAM [facility] [id number] [facility] 2022-10-26 13:25:59 2022-10-26 23:59:00 Hospital Encounter Meghan Markham [facility] MEDICAL OFFICE BUILDING 1.2.840.114 350.1.13.10 4.2.7.2.686 [id number] [facility] 2022-10-26 00:00:00 2022-10-26 00:00:00 Refill Holly Fregoso [facility] MEDICAL OFFICE BUILDING 1.2840.114 350.1.13.10 4.2.7.2.686 [id number] 044 [id number] [facility] 2022-10-26 00:00:00 2022-10-26 00:00:00 Refill Radha Trinidad [facility] 1.2840.114 350.1.13.10 4.2.7.2.686 [id number] [id number] [facility] 2022-10-26 00:00:00 2022-10-26 00:00:00 Refill Radha Trinidad [facility] 1.2840.114 350.1.13.10 4.2.7.2.686 [id number] 311 [id number] [facility] 2022-10-26 00:00:00 2022-10-26 00:00:00 Refill Richa Dominguez [facility] MEDICAL OFFICE BUILDING 1.2840.114 350.1.13.10 4.2.7.2.686 [id number] [facility] 2022-10-26 00:00:00 2022-10-26 00:00:00 Refill Radha Trinidad [facility] 1.2840.114 350.1.13.10 4.2.7.2.686 [id number] 311 [id number] [facility] 2022-10-26 00:00:00 2022-10-26 00:00:00 Refill Richa Dominguez [facility] MEDICAL OFFICE BUILDING 1.2840.114 350.1.13.10 4.2.7.2.686 [id number] [facility] 2022-10-26 00:00:00 2022-10-26 00:00:00 Telephone Holly Fregoso [facility] MEDICAL OFFICE BUILDING 1.2.840.114 350.1.13.10 4.2.7.2.686 [id number] [id number] [facility] 2022-10-26 00:00:00 2022-10-26 00:00:00 [facility] 1.84.114 350.1.13.10 4.2.7.2.686 [id number] [id number] [facility] 2022-10-25 14:00:00 2022-10-25 14:40:59 Outpatient R NAINA SEGOVIA [facility] [id number] [facility] 2022-10-25 14:00:00 2022-10-25 14:40:59 Office Visit Naina Segovia [facility] 1.840.114 350.1.13.10 4.2.7.2.686 [id number] [id number] [facility] 2022-10-25 00:00:00 2022-10-25 00:00:00 Telephone Holly Fregoso [facility] MEDICAL OFFICE BUILDING 1..840.114 350.1.13.10 4.2.7.2.686 [id number] 044 [id number] [facility] 2022-10-24 09:20:00 2022-10-24 10:35:48 Outpatient R SKYLER FERRARI HOWARD [facility] [id number] [facility] 2022-10-24 09:20:00 2022-10-24 10:35:48 Office Visit Skyler Ferrari [facility] MEDICAL OFFICE BUILDING 1..840.114 350.1.13.10 4.2.7.2.686 [id number] [id number] [facility] 2022-10-24 00:00:00 2022-10-24 00:00:00 Patient Secure Msg Doctor Unassigned, Odum [facility] 1.0.114 350.1.13.10 4.2.7.2.686 [id number] [id number] [facility] 2022-10-22 00:00:00 2022-10-22 00:00:00 Telephone Holly Fregoso [facility] MEDICAL OFFICE BUILDING 1.0.114 350.1.13.10 4.2.7.2.686 [id number] 044 [id number] [facility] 2022-10-20 00:00:00 2022-10-20 00:00:00 Telephone Holly Fregoso [facility] OFFICE [facility] 1..114 350.1.13.10 4.2.7.2.686 [id number] 044 [id number] [facility] 2022-10-18 15:00:00 2022-10-18 15:35:29 Outpatient R HOLLY FREGOSO [facility] [id number] [facility] 2022-10-18 15:00:00 2022-10-18 15:35:29 Office Visit Holly Fregoso [facility] MEDICAL OFFICE [facility] 1..114 350.1.13.10 4.2.7.2.686 [id number] 044 [id number] [facility] 2022-10-18 00:00:00 2022-10-18 00:00:00 Orders Only Doctor Unassigned, Odum [facility] 1.0.114 350.1.13.10 4.2.7.2.686 [id number] [facility] 2022-10-17 09:00:00 2022-10-17 09:15:00 Sanitation Worker Cleaning Equipment Visit [facility] Sleep Lab Kalli Jefferson [facility] 1.0.114 350.1.13.10 4.2.7.2.686 [id number] [facility] 2022-10-17 09:00:00 2022-10-17 09:00:00 Outpatient KALLI CASON STRAHIL [facility] [id number] [facility] 2022-10-03 00:00:00 2022-10-03 00:00:00 Telephone [facility] 1.0.114 350.1.13.10 4.2.7.2.686 [id number] [facility] 2022-10-03 00:00:00 2022-10-03 00:00:00 Telephone Meghan Markham [facility] MEDICAL OFFICE BUILDING 1.0.114 350.1.13.10 4.2.7.2.686 [id number] 038 [id number] [facility] 2022-10-02 00:00:00 2022-10-02 00:00:00 Refill Holly Fregoso [facility] MED[facility] OFF[facility] BUILDING 1.0.114 350.1.13.10 4.2.7.2.686 [id number] 044 [id number] [facility] 2022-10-01 00:00:00 2022-10-01 00:00:00 Refill Doctor Unassigned, Odum [facility] 1.0.114 350.1.13.10 4.2.7.2.686 [id number] [id number] [facility] 2022-10-01 00:00:00 2022-10-01 00:00:00 Refill Doctor Unassigned, Odum [facility] 1.840.114 350.1.13.10 4.2.7.2.686 [id number] [facility] 2022-10-01 00:00:00 2022-10-01 00:00:00 Radha Stafford [facility] 1.840.114 350.1.13.10 4.2.7.2.686 [id number] [facility] 2022-09-21 11:00:00 2022-09-21 11:57:44 Outpatient R HOLLY FREGOSO [facility] [id number] [facility] 2022-09-21 11:00:00 2022-09-21 11:57:44 Office Visit Holly Fregoso [facility] MEDICAL OFFICE BUILDING 1.0.114 350.1.13.10 4.2.7.2.686 [id number] [id number] [facility] 2022-09-21 08:00:00 2022-09-21 08:30:00 Office Visit Taylor Verdin [facility] MEDICAL OFFICE BUILDING 1.0.114 350.1.13.10 4.2.7.2.686 [id number] 044 [id number] [facility] 2022-09-21 08:00:00 2022-09-21 08:00:00 Outpatient R TAYLOR VERDIN [facility] [id number] [facility] 2022-09-19 00:00:00 2022-09-19 00:00:00 Nurse Triage Carolny Nava [facility] 1.0.114 350.1.13.10 4.2.7.2.686 [id number] [id number] [facility] 2022-09-19 00:00:00 2022-09-19 00:00:00 Telephone Curtis Morley [facility] 1..114 350.1.13.10 4.2.7.2.686 [id number] [id number] [facility] 2022-09-18 10:00:00 2022-09-18 10:30:00 Telemedici ne Visit Beth Pham [facility] 1.840.114 350.1.13.10 4.2.7.2.686 [id number] [id number] [facility] 2022-09-18 10:00:00 2022-09-18 10:00:00 Outpatient R VERO BETH [facility] [id number] [facility] 2022-09-18 00:00:00 2022-09-18 00:00:00 Telephone Peyman Curtis [facility] 1.840.114 350.1.13.10 4.2.7.2.686 [id number] [id number] [facility] 2022-09-15 10:53:55 2022-09-15 23:59:00 Hospital [facility] 1.840.114 350.1.13.10 4.2.7.2.686 [id number] [facility] 2022-09-15 10:53:55 2022-09-15 23:59:00 Outpatient R CURTIS MORLEY [facility] [id number] [facility] 2022-09-15 10:30:00 2022-09-15 11:00:00 [facility] 1.840.114 350.1.13.10 4.2.7.2.686 [id number] [id number] [facility] 2022-09-13 09:30:00 2022-09-13 10:35:03 Outpatient R RICHA DOMINGUEZ YU [facility] [id number] [facility] 2022-09-13 09:30:00 2022-09-13 10:35:03 Office Visit Richa Dominguez [facility]ILD[facility] 1.2.840.114 350.1.13.10 4.2.7.2.686 [id number] [facility] 2022-09-13 00:00:00 2022-09-13 00:00:00 Telephone Ez Palacio [facility] 1.2.840.114 350.1.13.10 4.2.7.2.686 [id number] [facility] 2022-09-13 00:00:00 2022-09-13 00:00:00 Telephone Curtis Morley [facility] 1.2.840.114 350.1.13.10 4.2.7.2.686 [id number] [id number] [facility] 2022-09-12 09:30:00 2022-09-12 10:14:05 Office Visit Argentina Looney [facility] 1.2.840.114 350.1.13.10 4.2.7.2.686 [id number] [facility] 2022-09-12 09:30:00 2022-09-12 10:14:05 Outpatient R ARGENTINA LOONEY [facility] [id number] [facility] 2022-09-12 00:00:00 2022-09-12 00:00:00 Orders Only Doctor Unassigned, Odum [facility] 1.2.840.114 350.1.13.10 4.2.7.2.686 [id number] [facility] 2022-09-06 00:00:00 2022-09-06 00:00:00 Patient Secure Msg Bruce Holzer [facility] 1.2.840.114 350.1.13.10 4.2.7.2.686 [id number] [facility] 2022-08-29 10:30:00 2022-08-29 10:30:00 Outpatient R CURTIS MORLEY [facility] [id number] [facility] 2022-08-21 10:15:00 2022-08-21 10:15:00 Sanitation Worker Cleaning Equipment Visit Lab, Ang - Db Pedro Pablo [facility] MEDICAL OFFICE BUILDING 1..840.114 350.1.13.10 4.2.7.2.686 [id number] [facility] 2022-08-21 10:15:00 2022-08-21 10:09:08 Outpatient R PEDRO PABLO [facility] [id number] [facility] 2022-08-21 09:30:00 2022-08-21 09:56:40 Office Visit Pedro Pablo [facility]ILD[facility] 1..840.114 350.1.13.10 4.2.7.2.686 [id number] [id number] [facility] 2022-08-17 13:00:00 2022-08-17 13:00:00 Outpatient R [facility] [id number] [facility] 2022-08-17 00:00:00 2022-08-17 00:00:00 Telephone Radha Trinidad [facility] 1..840.114 350.1.13.10 4.2.7.2.686 [id number] [facility] 2022-08-16 12:39:58 2022-08-16 23:59:00 Outpatient R SKYLER FERRARI HOWARD [facility] [id number] [facility] 2022-08-16 12:39:58 2022-08-16 23:59:00 Hospital Encounter Skyler Ferrari [facility] 1.840.114 350.1.13.10 4.2.7.2.686 [id number] [facility] 2022-08-16 00:00:00 2022-08-16 00:00:00 Radha Stafford [facility] 1.2.840.114 350.1.13.10 4.2.7.2.686 [id number] [facility] 2022-08-15 11:30:00 2022-08-15 11:42:13 [facility] [id number] [facility] 2022-08-15 11:30:00 2022-08-15 11:42:13 [facility] 1.2.840.114 350.1.13.10 4.2.7.2.686 [id number] 134 [id number] [facility] 2022-08-15 00:00:00 2022-08-15 00:00:00 Telephone Bruce [facility] 1.2.840.114 350.1.13.10 4.2.7.2.686 [id number] 134 [id number] [facility] 2022-08-03 12:45:00 2022-08-03 13:00:00 Sanitation Worker Cleaning Equipment Visit Lab, Raj - Ish [facility] 1.2.840.114 350.1.13.10 4.2.7.2.686 [id number] [facility] 2022-08-03 12:45:00 2022-08-03 12:45:00 Outpatient R EZ PALACIO [facility] [id number] [facility] 2022-08-02 13:00:00 2022-08-02 13:55:50 Outpatient R EZ PALACIO [facility] [id number] [facility] 2022-08-02 13:00:00 2022-08-02 13:55:50 Office Visit Ez Palacio [facility] 1.2840.114 350.1.13.10 4.2.7.2.686 [id number] 134 [id number] [facility] 2022-07-26 08:50:28 2022-07-26 23:59:00 Outpatient R EZ PALACIO CHERYAL [facility] [id number] [facility] 2022-07-26 08:50:28 2022-07-26 23:59:00 Hospital Encounter Ez Palacio [facility] 1.2840.114 350.1.13.10 4.2.7.2.686 [id number] [facility] 2022-07-26 00:00:00 2022-07-26 00:00:00 Telephone Vega Skyler [facility] MEDICAL OFFICE BUILDING 1.284.114 350.1.13.10 4.2.7.2.686 [id number] [id number] [facility] 2022-07-24 09:20:00 2022-07-24 10:09:23 Outpatient R VEGASKYLER HOWARD [facility] [id number] [facility] 2022-07-24 09:20:00 2022-07-24 10:09:23 Office Visit Skyler Ferrari [facility] MEDICAL OFFICE BUILDING 1.284.114 350.1.13.10 4.2.7.2.686 [id number] [id number] [facility] 2022-07-19 00:00:00 2022-07-19 00:00:00 Telephone Ez Palacio [facility] 1.20.114 350.1.13.10 4.2.7.2.686 [id number] 134 [id number] [facility] 2022-07-18 10:00:00 2022-07-18 11:06:06 Outpatient R BETH PHAM [facility] [id number] [facility] 2022-07-18 10:00:00 2022-07-18 11:06:06 Office Visit Beth Pham [facility] 1.840.114 350.1.13.10 4.2.7.2.686 [id number] [id number] [facility] 2022-07-17 10:45:00 2022-07-17 11:30:28 Outpatient R ZE PALACIO CHERYAL [facility] [id number] [facility] 2022-07-17 10:45:00 2022-07-17 11:30:28 Office Visit Ez Palacio [facility] 1.840.114 350.1.13.10 4.2.7.2.686 [id number] [facility] 2022-07-13 00:00:00 2022-07-13 00:00:00 Telephone Curtis Morley [facility]PEC [facility] 1.2840.114 350.1.13.10 4.2.7.2.686 [id number] [id number] [facility] 2022-07-11 00:00:00 2022-07-11 00:00:00 Telephone Curtis Morley [facility] 1.2840.114 350.1.13.10 4.2.7.2.686 [id number] [id number] [facility] 2022-07-04 00:00:00 2022-07-04 00:00:00 Radha Stafford [facility] 1.2840.114 350.1.13.10 4.2.7.2.686 [id number] [facility] 2022-07-03 11:18:25 2022-07-03 23:59:00 Outpatient R CAMILO CORLEY [facility] [id number] [facility] 2022-07-03 00:00:00 2022-07-03 00:00:00 Telephone Curtis Morley [facility]PEC [facility] 1.2.840.114 350.1.13.10 4.2.7.2.686 [id number] [id number] [facility] 2022-06-30 14:31:25 2022-06-30 23:59:00 Hospital Encounter Curtis Morley [facility] 1.2.840.114 350.1.13.10 4.2.7.2.686 [id number] [facility] 2022-06-30 14:00:00 2022-06-30 14:30:00 Office Visit Curtis Morley [facility] 1.840.114 350.1.13.10 4.2.7.2.686 [id number] [id number] [facility] 2022-06-30 14:00:00 2022-06-30 14:00:00 Outpatient R CURTIS MORLEY [facility] [id number] [facility] 2022-06-28 00:00:00 2022-06-28 00:00:00 Telephone Peyman [facility] 1.2840.114 350.1.13.10 4.2.7.2.686 [id number] [id number] [facility] 2022-06-27 00:00:00 2022-06-27 00:00:00 Radha Stafford [facility] 1.2.840.114 350.1.13.10 4.2.7.2.686 [id number] 311 [id number] [facility] 2022-06-21 00:00:00 2022-06-21 00:00:00 Patient Secure Msg Aayush [facility] 1.114 350.1.13.10 4.2.7.2.686 [id number] 134 [id number] [facility] 2022-06-20 11:45:00 2022-06-20 12:00:00 Sanitation Worker Cleaning Equipment Visit Lab, Ang - Db Casjessica [facility] KEITH?[facility]ILD[facility] 1. 350.1.13.10 4.2.7.2.686 [id number] 353 [id number] [facility] 2022-06-20 10:00:00 2022-06-20 10:51:04 Outpatient R AAYUSH [facility] [id number] [facility] 2022-06-20 10:00:00 2022-06-20 10:51:04 Office Visit Aayush [facility] 1. 350.1.13.10 4.2.7.2.686 [id number] 134 [id number] [facility] 2022-06-16 00:00:00 2022-06-16 00:00:00 Orders Only Doctor Unassigned, Odum [facility] 1.114 350.1.13.10 4.2.7.2.686 [id number] [facility] 2022-06-09 10:15:00 2022-06-09 11:34:49 Outpatient R CAMILO CORLEY [facility] [id number] [facility] 2022-06-09 10:15:00 2022-06-09 11:34:49 Office Visit Camilo Corley [facility] BLDG. .114 350.1.13.10 4.2.7.2.686 [id number] [facility] 2022-05-22 00:00:00 2022-05-22 00:00:00 Refill Doctor Unassigned, Odum [facility] 1.2.840.114 350.1.13.10 4.2.7.2.686 [id number] [facility] 2022-05-21 00:00:00 2022-05-21 00:00:00 Refill Radha Trinidad [facility] 1.2.840.114 350.1.13.10 4.2.7.2.686 [id number] 311 [id number] [facility] 2022-05-17 00:00:00 2022-05-17 00:00:00 Telephone Curtis Morley [facility] 1.2.840.114 350.1.13.10 4.2.7.2.686 [id number] [id number] [facility] 2022-05-17 00:00:00 2022-05-17 00:00:00 Telephone [facility] 1.2.840.114 350.1.13.10 4.2.7.2.686 [id number] [id number] [facility] 2022-05-17 00:00:00 2022-05-17 00:00:00 Telephone Radha Trinidad [facility] 1.2.840.114 350.1.13.10 4.2.7.2.686 [id number] [facility] 2022-05-16 10:00:00 2022-05-16 11:13:48 Outpatient R CURTIS MORLEY [facility] [id number] [facility] 2022-05-16 10:00:00 2022-05-16 11:13:48 Office Visit Curtis Morley [facility] 1.840.114 350.1.13.10 4.2.7.2.686 [id number] [facility] 2022-05-10 00:00:00 2022-05-10 00:00:00 Patient Secure Msg Doctor Unassigned, Odum [facility] 1.2.840.114 350.1.13.10 4.2.7.2.686 [id number] 311 [id number] [facility] 2022-05-08 09:15:00 2022-05-08 09:30:00 Sanitation Worker Cleaning Equipment Visit Lab, [facility] Stew Shane. Radha Trinidad [facility] 1.840.114 350.1.13.10 4.2.7.2.686 [id number] 311 [id number] [facility] 2022-05-08 09:15:00 2022-05-08 09:15:00 Outpatient R RADHA TRINIDAD [facility] [id number] [facility] 2022-05-04 00:00:00 2022-05-04 00:00:00 Telephone Radha Trinidad [facility] 1.840.114 350.1.13.10 4.2.7.2.686 [id number] [facility] 2022-05-01 00:00:00 2022-05-01 00:00:00 Curtis Iniguez [facility] 1.840.114 350.1.13.10 4.2.7.2.686 [id number] [facility] 2022-04-28 00:00:00 2022-04-28 00:00:00 Azalia Cartagena [facility] 1.840.114 350.1.13.10 4.2.7.2.686 [id number] [facility] 2022-04-26 00:00:00 2022-04-26 00:00:00 Telephone Radha Trinidad [facility] 1.2.840.114 350.1.13.10 4.2.7.2.686 [id number] 311 [id number] [facility] 2022-04-21 00:00:00 2022-04-21 00:00:00 Patient Secure Msg Radha Trinidad [facility] 1.2.840.114 350.1.13.10 4.2.7.2.686 [id number] [facility] 2022-04-21 00:00:00 2022-04-21 00:00:00 Refill Azalia Michel [facility] [place] [facility] 1.2.840.114 350.1.13.10 4.2.7.2.686 [id number] [facility] 2022-04-21 00:00:00 2022-04-21 00:00:00 Refill Doctor Unassigned, Odum [facility] 1.2.840.114 350.1.13.10 4.2.7.2.686 [id number] [facility] 2022-04-21 00:00:00 2022-04-21 00:00:00 Refill Ashley Raines [facility] 1.2.840.114 350.1.13.10 4.2.7.2.686 [id number] [facility] 2022-04-18 14:00:00 2022-04-18 14:30:00 Telemedici ne Visit Radha Trinidad [facility] 1.2.840.114 350.1.13.10 4.2.7.2.686 [id number] [facility] 2022-04-18 14:00:00 2022-04-18 14:00:00 Outpatient Annalee FONTANEZTRINIDADRADHA VIDAL [facility] [id number] [facility] 2022-04-18 14:00:00 2022-04-18 14:00:00 Outpatient Annalee FONTANEZTRINIDADRADHA VIDAL [facility] [id number] [facility] 2022-04-18 10:00:00 2022-04-18 10:00:00 Outpatient Annalee FONTANEZTRINIDAD, RADHA [facility] [id number] [facility] 2022-04-17 00:00:00 2022-04-17 00:00:00 Honey FontanezRadha vidal [facility] [facility] 1.2.840.114 350.1.13.10 4.2.7.2.686 [id number] 311 [id number] [facility] 2022-04-13 00:00:00 2022-04-13 00:00:00 Refill BirdRadha [facility] 1.2.840.114 350.1.13.10 4.2.7.2.686 [id number] 311 [id number] [facility] 2022-04-05 00:00:00 2022-04-05 00:00:00 Orders Only Doctor Unassigned, Odum [facility] 1.2.840.114 350.1.13.10 4.2.7.2.686 [id number] [facility] 2022-03-26 00:00:00 2022-03-26 00:00:00 Refjo-ann TrinidadRadha [facility] 1.2.840.114 350.1.13.10 4.2.7.2.686 [id number] 311 [id number] [facility] 2022-03-26 00:00:00 2022-03-26 00:00:00 Azalia Cartagena [facility] 1.2.840.114 350.1.13.10 4.2.7.2.686 [id number] [facility] 2022-03-13 00:00:00 2022-03-13 00:00:00 Orders Only Doctor Unassigned, Odum [facility] 1.2.840.114 350.1.13.10 4.2.7.2.686 [id number] [facility] 2022-03-10 00:00:00 2022-03-10 00:00:00 Telephone Radha Trinidad [facility] 1.2.840.114 350.1.13.10 4.2.7.2.686 [id number] 311 [id number] [facility] 2022-03-08 00:00:00 2022-03-08 00:00:00 Telephone Azalia Michel [facility] [place] [facility] 1.2.840.114 350.1.13.10 4.2.7.2.686 [id number] [facility] [id number] [facility] 2022-03-08 00:00:00 2022-03-08 00:00:00 Telephone Radha Trinidad [facility] 1.2.840.114 350.1.13.10 4.2.7.2.686 [id number] 311 [id number] [facility] 2022-03-07 14:00:00 2022-03-07 14:00:00 Outpatient R AZALIA MICHEL [facility] [id number] [facility] 2022-03-07 00:00:00 2022-03-07 00:00:00 Telephone Radha Trinidad [facility] 1.2.840.114 350.1.13.10 4.2.7.2.686 [id number] 311 [id number] [facility] 2022-03-05 00:00:00 2022-03-05 00:00:00 Refill Radha Trinidad [facility] 1.2.840.114 350.1.13.10 4.2.7.2.686 [id number] 311 [id number] [facility] 2022-02-28 00:00:00 2022-02-28 00:00:00 Patient Secure Msg Doctor Unassigned, Odum [facility] 1.2.840.114 350.1.13.10 4.2.7.2.686 [id number] 311 [id number] [facility] 2022-02-13 00:00:00 2022-02-13 00:00:00 Refill Radha Trinidad [facility] 1.2.840.114 350.1.13.10 4.2.7.2.686 [id number] 311 [id number] [facility] 2022-02-10 00:00:00 2022-02-10 00:00:00 Honey Radha Trinidad [facility] 1.2.840.114 350.1.13.10 4.2.7.2.686 [id number] 311 [id number] [facility] 2022-02-10 00:00:00 2022-02-10 00:00:00 Refill Radha Trinidad [facility] 1.2.840.114 350.1.13.10 4.2.7.2.686 [id number] 311 [id number] [facility] 2022-02-09 00:00:00 2022-02-09 00:00:00 Refill Radha Trinidad [facility] 1.2.840.114 350.1.13.10 4.2.7.2.686 [id number] 311 [id number] [facility] 2022-02-09 00:00:00 2022-02-09 00:00:00 Refill Azalia Michel [facility] 1.2.840.114 350.1.13.10 4.2.7.2.686 [id number] [facility] 2022-01-24 14:00:00 2022-01-24 14:15:00 Office Visit Azalia Michel [facility] 1.840.114 350.1.13.10 4.2.7.2.686 [id number] [facility] 2022-01-24 14:00:00 2022-01-24 14:00:00 Outpatient R AZALIA MICHEL [facility] [id number] [facility] 2022-01-24 14:00:00 2022-01-24 14:00:00 Outpatient Annalee MARILU [facility] [id number] [facility] 2022-01-24 14:00:00 2022-01-24 14:00:00 Outpatient R AZALIA MICHEL [facility] [id number] [facility] 2022-01-24 14:00:00 2022-01-24 14:00:00 [facility] [id number] [facility] 2022-01-24 00:00:00 2022-01-24 00:00:00 Patient Secure Msg Doctor Unassigned, Odum [facility] 1.840.114 350.1.13.10 4.2.7.2.686 [id number] 311 [id number] [facility] 2022-01-24 00:00:00 2022-01-24 00:00:00 Patient Secure Msg Radha Trinidad [facility] 1.2.840.114 350.1.13.10 4.2.7.2.686 [id number] 311 [id number] [facility] 2022-01-21 00:00:00 2022-01-21 00:00:00 Patient Secure Msg Doctor Unassigned, Odum [facility] 1..840.114 350.1.13.10 4.2.7.2.686 [id number] [facility] 2022-01-20 00:00:00 2022-01-20 00:00:00 Telephone Radha Trinidad [facility] 1.2.840.114 350.1.13.10 4.2.7.2.686 [id number] 311 [id number] [facility] 2022-01-20 00:00:00 2022-01-20 00:00:00 Telephone Radha Trinidad [facility] 1.2.840.114 350.1.13.10 4.2.7.2.686 [id number] 311 [id number] [facility] 2022-01-16 15:00:00 2022-01-16 15:30:00 Office Visit Radha Trinidad [facility] 1.2.840.114 350.1.13.10 4.2.7.2.686 [id number] 311 [id number] [facility] 2022-01-16 15:00:00 2022-01-16 15:00:00 Outpatient R RADHA TRINIDAD [facility] [id number] [facility] 2022-01-16 00:00:00 2022-01-16 00:00:00 Catalina Alvarez [facility] 1.2.840.114 350.1.13.10 4.2.7.2.686 [id number] 311 [id number] [facility] 2022-01-04 00:00:00 2022-01-04 00:00:00 Patient Secure Msg Doctor Unassigned, Odum [facility] 1.840.114 350.1.13.10 4.2.7.2.686 [id number] [facility] 2022-01-04 00:00:00 2022-01-04 00:00:00 [facility] 1.840.114 350.1.13.10 4.2.7.2.686 [id number] 011 [id number] [facility] 2022-01-04 00:00:00 2022-01-04 00:00:00 Radha Stafford [facility] 1.2.840.114 350.1.13.10 4.2.7.2.686 [id number] 311 [id number] [facility] 2021-12-21 00:00:00 2021-12-21 00:00:00 Honey Michel [facility] 1.2.840.114 350.1.13.10 4.2.7.2.686 [id number] [facility] 2021-12-20 14:30:00 2021-12-20 14:30:00 Outpatient Annalee MICHEL AZALIA [facility] [id number] [facility] 2021-12-07 00:00:00 2021-12-07 00:00:00 Radha Stafford [facility] 1.2.840.114 350.1.13.10 4.2.7.2.686 [id number] 311 [id number] [facility] 2021-11-29 00:00:00 2021-11-29 00:00:00 Patient Secure Radha Granados [facility] 1.2.840.114 350.1.13.10 4.2.7.2.686 [id number] 311 [id number] [facility] 2021-11-22 16:00:00 2021-11-22 16:15:00 Telemedici ne Visit Marilu [facility] 1.2.840.114 350.1.13.10 4.2.7.2.686 [id number] 408 [id number] [facility] 2021-11-22 16:00:00 2021-11-22 16:00:00 Outpatient Annalee MICHEL [facility] [id number] [facility] 2021-11-22 16:00:00 2021-11-22 16:00:00 Outpatient Annalee MICHEL AZALIA [facility] [id number] [facility] 2021-11-22 00:00:00 2021-11-22 00:00:00 Telephone Radha Trinidad [facility] 1.2.840.114 350.1.13.10 4.2.7.2.686 [id number] [facility] [id number] [facility] 2021-11-22 00:00:00 2021-11-22 00:00:00 Telephone Marilu [facility] 1.2.840.114 350.1.13.10 4.2.7.2.686 [id number] 408 [id number] [facility] 2021-11-20 00:00:00 2021-11-20 00:00:00 Telephone Marilu [facility] 1.2.840.114 350.1.13.10 4.2.7.2.686 [id number] [facility] 2021-11-20 00:00:00 2021-11-20 00:00:00 Telephone Marilu [facility] 1.2.840.114 350.1.13.10 4.2.7.2.686 [id number] 408 [id number] [facility] 2021-11-20 00:00:00 2021-11-20 00:00:00 Telephone Byron Berry [facility] 1.2.840.114 350.1.13.10 4.2.7.2.686 [id number] [facility] 2021-11-15 08:45:00 2021-11-15 08:45:00 Outpatient CAMILO ISRAEL [facility] [id number] [facility] 2021-11-15 08:45:00 2021-11-15 08:45:00 Outpatient CAMILO ISRAEL [facility] [id number] [facility] 2021-11-14 10:46:00 2021-11-14 15:24:00 Outpatient R AZALIA MICHEL [facility] CASSANDRA [id number] [facility] 2021-11-14 10:46:00 2021-11-14 15:24:00 Hospital Encounter Azalia Michel [facility] 1.2.840.114 350.1.13.10 4.2.7.2.686 [id number] [facility] 2021-11-14 11:43:00 2021-11-14 13:33:00 Surgery Marilu Azalia [facility] 1.2.840.114 350.1.13.10 4.2.7.2.686 [id number] [facility] 2021-11-11 14:00:00 2021-11-11 14:15:00 Laboratory Only Only, Adc Test Marilu Azalia [facility] 1.2840.114 350.1.13.10 4.2.7.2.686 [id number] [facility] 2021-11-11 14:00:00 2021-11-11 14:00:00 Outpatient AZALIA ORELLANA [facility] [id number] [facility] 2021-11-08 14:15:00 2021-11-08 14:30:00 Office Visit Marilu Azalia [facility] 1.840.114 350.1.13.10 4.2.7.2.686 [id number] [facility] 2021-11-08 14:15:00 2021-11-08 14:15:00 Outpatient AZALIA ORELLANA [facility] [id number] [facility] 2021-11-08 00:00:00 2021-11-08 00:00:00 Radha Stafford [facility] 1.2.840.114 350.1.13.10 4.2.7.2.686 [id number] 311 [id number] [facility] 2021-11-04 11:00:00 2021-11-04 11:00:00 Outpatient AZALIA ORELLANA [facility] [id number] [facility] 2021-10-26 00:00:00 2021-10-26 00:00:00 Patient Secure Curtis Partida [facility] 1..840.114 350.1.13.10 4.2.7.2.686 [id number] [id number] [facility] 2021-10-22 00:00:00 2021-10-22 00:00:00 Radha Stafford [facility] 1.2.840.114 350.1.13.10 4.2.7.2.686 [id number] [facility] 2021-10-17 09:30:00 2021-10-17 09:30:00 Outpatient CURTIS HARRISON [facility] [id number] [facility] 2021-10-05 11:30:00 2021-10-05 11:30:00 Outpatient SKYLER DOUGHERTY HOWARD [facility] [id number] [facility] 2021-10-05 00:00:00 2021-10-05 00:00:00 Radha Stafford [facility] 1.2.840.114 350.1.13.10 4.2.7.2.686 [id number] [facility] 2021-09-29 08:30:00 2021-09-29 08:30:00 Outpatient CURTIS HARRISON [facility] [id number] [facility] 2021-09-29 08:30:00 2021-09-29 08:30:00 Outpatient CURTIS HARRISON [facility] [id number] [facility] 2021-09-29 08:30:00 2021-09-29 08:30:00 Outpatient CURTIS HARRISON [facility] [id number] [facility] 2021-09-16 14:30:00 2021-09-16 14:30:00 Outpatient RADHA GUPTA [facility] [id number] [facility] 2021-09-16 14:30:00 2021-09-16 14:30:00 Outpatient RADHA GUPTA [facility] [id number] [facility] 2021-09-15 00:00:00 2021-09-15 00:00:00 RefCurtis Barber [facility] 1.840.114 350.1.13.10 4.2.7.2.686 [id number] [facility] 2021-09-06 09:00:00 2021-09-06 09:30:00 Office Visit Radha Trinidad [facility] 1.840.114 350.1.13.10 4.2.7.2.686 [id number] 311 [id number] [facility] 2021-09-06 09:00:00 2021-09-06 09:00:00 Outpatient RADHA GUPTA [facility] [id number] [facility] 2021-09-06 09:00:00 2021-09-06 09:00:00 Outpatient RADHA GUPTA [facility] [id number] [facility] 2021-09-06 00:00:00 2021-09-06 00:00:00 Orders Only Doctor Unassigned, Odum [facility] 1.840.114 350.1.13.10 4.2.7.2.686 [id number] [facility] 2021-09-06 00:00:00 2021-09-06 00:00:00 Curtis Randolph [facility] 1.2.840.114 350.1.13.10 4.2.7.2.686 [id number] [facility] 2021-09-01 00:00:00 2021-09-01 00:00:00 RefRahda Caldwell [facility] 1.2.840.114 350.1.13.10 4.2.7.2.686 [id number] 311 [id number] [facility] 2021-08-10 00:00:00 2021-08-10 00:00:00 Refill Ashley Raines [facility] 1.2.840.114 350.1.13.10 4.2.7.2.686 [id number] 370 [id number] [facility] 2021-08-03 00:00:00 2021-08-03 00:00:00 Refjo-ann Bird [facility] 1.2.840.114 350.1.13.10 4.2.7.2.686 [id number] 311 [id number] [facility] 2021-08-03 00:00:00 2021-08-03 00:00:[address] [facility] 1.2.840.114 350.1.13.10 4.2.7.2.686 [id number] 311 [id number] [facility] 2021-08-02 00:00:00 2021-08-02 00:00:00 Tomyjo-ann Bird [facility] 1.2.840.114 350.1.13.10 4.2.7.2.686 [id number] 311 [id number] [facility] 2021-08-02 00:00:00 2021-08-02 00:00:00 RefAshley Schultz [facility] 1.2.840.114 350.1.13.10 4.2.7.2.686 [id number] 370 [id number] [facility] 2021-08-02 00:00:00 2021-08-02 00:00:00 New Prieto [facility] 1.840.114 350.1.13.10 4.2.7.2.686 [id number] [facility] 2021-08-02 00:00:00 2021-08-02 00:00:00 Catalina Alvarez [facility] 1.0.114 350.1.13.10 4.2.7.2.686 [id number] 311 [id number] [facility] 2021-08-01 00:00:00 2021-08-01 00:00:00 Telephone Rene Olvera [facility] 1..114 350.1.13.10 4.2.7.2.686 [id number] 011 [id number] [facility] 2021-07-29 12:53:28 2021-07-29 23:59:00 Hospital Encounter Curtis Morley [facility] 1..114 350.1.13.10 4.2.7.2.686 [id number] [facility] 2021-07-29 12:53:28 2021-07-29 23:59:00 Outpatient CURTIS HARRISON [facility] [id number] [facility] 2021-07-29 13:30:00 2021-07-29 14:00:00 Office Visit Curtis Morley [facility] 1..114 350.1.13.10 4.2.7.2.686 [id number] [id number] [facility] 2021-07-29 13:30:00 2021-07-29 13:30:00 Outpatient R CURTIS MORLEY [facility] [id number] [facility] 2021-07-28 00:00:00 2021-07-28 00:00:00 Telephone Curtis Morley [facility] 1.84.114 350.1.13.10 4.2.7.2.686 [id number] [id number] [facility] 2021-07-27 00:00:00 2021-07-27 00:00:00 [facility] 1.840.114 350.1.13.10 4.2.7.2.686 [id number] [facility] 2021-07-20 16:45:00 2021-07-20 17:37:40 Outpatient SAMINA BLACK [facility] [id number] [facility] 2021-07-20 16:19:24 2021-07-20 17:37:40 Urgent Care Samina Booker A Unknown, Attending [facility] 1.840.114 350.1.13.10 4.2.7.2.686 [id number] [facility] 2021-07-05 10:00:00 2021-07-05 10:00:00 Outpatient Annalee MORLEYCURTIS [facility] [id number] [facility] 2021-07-01 16:00:00 2021-07-01 14:32:17 Outpatient [facility] [id number] [facility] 2021-07-01 11:41:16 2021-07-01 11:56:16 Nurse Visit Nurse, Anthony Marroquin Urgent Unknown, Attending [facility] 1..840.114 350.1.13.10 4.2.7.2.686 [id number] 370 [id number] [facility] 2021-06-30 00:00:00 2021-06-30 00:00:00 Telephone Curtis Morley [facility] 1. 350.1.13.10 4.2.7.2.686 [id number] [id number] [facility] 2021-06-28 10:23:31 2021-06-28 11:23:31 Nurse Visit Therapy, Clc Covid Tejinder Casas [facility] 1.114 350.1.13.10 4.2.7.2.686 [id number] [facility] 2021-06-28 10:30:00 2021-06-28 10:30:00 Outpatient R TEJINDER DONALD [facility] [id number] [facility] 2021-06-27 09:00:00 2021-06-27 09:00:00 Outpatient R RADHA TRINIDAD [facility] [id number] [facility] 2021-06-27 08:22:01 2021-06-27 08:52:01 Telemedici ne Visit Radha Trinidad [facility] 1.114 350.1.13.10 4.2.7.2.686 [id number] 311 [id number] [facility] 2021-06-25 09:06:44 2021-06-25 09:55:18 Urgent Care Ashley Raines Unknown, Attending [facility] 1.114 350.1.13.10 4.2.7.2.686 [id number] 370 [id number] [facility] 2021-06-25 09:00:00 2021-06-25 09:55:18 Outpatient R ASHLEY RAINES [facility] [id number] [facility] 2021-06-06 17:12:40 2021-06-06 17:50:36 Urgent Care Ever Fierro Unknown, Attending [facility] 1.114 350.1.13.10 4.2.7.2.686 [id number] 370 [id number] [facility] 2021-06-06 17:15:00 2021-06-06 17:15:00 Outpatient R UNKNOWN, ATTENDING [facility] [id number] [facility] 2021-06-06 00:00:00 2021-06-06 00:00:00 Telephone Peyman Curtis Scooter [facility] 1.840.114 350.1.13.10 4.2.7.2.686 [id number] [facility] 2021-06-04 00:00:00 2021-06-04 00:00:00 Radha Stafford [facility] 1.840.114 350.1.13.10 4.2.7.2.686 [id number] 311 [id number] [facility] 2021-05-31 00:00:00 2021-05-31 00:00:00 Radha Stafford [facility] 1.840.114 350.1.13.10 4.2.7.2.686 [id number] 311 [id number] [facility] 2021-05-20 00:00:00 2021-05-20 00:00:00 Telephone Peyman Curtis Scooter [facility] 1..114 350.1.13.10 4.2.7.2.686 [id number] [facility] 2021-05-03 09:27:09 2021-05-03 09:42:09 Sanitation Worker Cleaning Equipment Visit Lab, [address] [facility] 1.840.114 350.1.13.10 4.2.7.2.686 [id number] 311 [id number] [facility] 2021-05-03 09:27:09 2021-05-03 09:42:09 Sanitation Worker Cleaning Equipment Visit Lab, Anthony Taylor RdBarrington Laboy [facility] 1..840.114 350.1.13.10 4.2.7.2.686 [id number] [facility] 2021-05-03 08:00:00 2021-05-03 08:00:00 Outpatient CATALINA BARNHART [facility] [id number] [facility] 2021-04-28 14:00:00 2021-04-28 14:00:00 Outpatient R CURTIS MORLEY [facility] [id number] [facility] 2021-04-28 00:00:00 2021-04-28 00:00:00 Telephone Curtis Morley [facility] 1.840.114 350.1.13.10 4.2.7.2.686 [id number] [facility] 2021-04-25 15:41:06 2021-04-25 16:11:06 Office Visit Catalina Mendez [facility] 1..840.114 350.1.13.10 4.2.7.2.686 [id number] [facility] 2021-04-25 13:30:00 2021-04-25 13:30:00 Outpatient CATALINA BARNHART [facility] [id number] [facility] 2021-04-19 11:30:00 2021-04-19 11:30:00 Outpatient HEATH PAPPAS [facility] [id number] [facility] 2021-04-16 00:00:00 2021-04-16 00:00:00 Radha Stafford [facility] 1.2.840.114 350.1.13.10 4.2.7.2.686 [id number] [facility] 2021-04-16 00:00:00 2021-04-16 00:00:00 Radha Stafford [facility] 1.2.840.114 350.1.13.10 4.2.7.2.686 [id number] [facility] 2021-03-29 16:04:00 2021-03-29 23:55:00 Emergency Brady Ivy Pedram [facility] 1.2.840.114 350.1.13.10 4.2.7.2.686 [id number] [facility] 2021-03-28 00:00:00 2021-03-28 00:00:00 Patient Secure Msg Doctor Unassigned, Odum [facility] 1.2.840.114 350.1.13.10 4.2.7.2.686 [id number] [facility] 2021-03-28 00:00:00 2021-03-28 00:00:00 Letter (Out) Norma Parker [facility] 1.2.840.114 350.1.13.10 4.2.7.2.686 [id number] [facility] 2021-03-27 00:00:00 2021-03-27 00:00:00 Telephone Samina Booker [facility] 1.2.840.114 350.1.13.10 4.2.7.2.686 [id number] [facility] 2021-03-26 16:32:41 2021-03-26 18:13:07 Urgent Care Samina Booker [facility] 1.2.840.114 350.1.13.10 4.2.7.2.686 [id number] [facility] 2021-03-26 16:30:00 2021-03-26 16:30:00 Outpatient R SAMINA BOOKER [facility] [id number] [facility] 2021-03-25 08:00:00 2021-03-25 08:00:00 Outpatient R CURTIS MORLEY [facility] [id number] [facility] 2021-03-24 15:42:41 2021-03-24 16:12:41 Telemedici ne Visit [place] [facility] 1.2840.114 350.1.13.10 4.2.7.2.686 [id number] [facility] 2021-03-24 16:00:00 2021-03-24 16:00:00 Outpatient R LUNA NEW [facility] [id number] [facility] 2021-03-24 09:30:00 2021-03-24 09:30:00 Outpatient CURTIS HARRISON [facility] [id number] [facility] 2021-03-24 00:00:00 2021-03-24 00:00:00 [facility] 1..114 350.1.13.10 4.2.7.2.686 [id number] [facility] 2021-03-21 14:56:09 2021-03-21 15:11:09 Sanitation Worker Cleaning Equipment Visit [facility] [place] [facility] 1.840.114 350.1.13.10 4.2.7.2.686 [id number] [facility] 2021-03-21 14:45:00 2021-03-21 14:45:00 Outpatient R [place] [facility] [id number] [facility] 2021-03-21 00:00:00 2021-03-21 00:00:00 Telephone Peyman Curtis [facility] 1.840.114 350.1.13.10 4.2.7.2.686 [id number] [facility] 2021-03-04 00:00:00 2021-03-04 00:00:00 Patient Secure Msg [place] [facility] [facility] 1..114 350.1.13.10 4.2.7.2.686 [id number] [facility] 2021-03-02 00:00:00 2021-03-02 00:00:00 Refill Radha Trinidad [facility] 1.84.114 350.1.13.10 4.2.7.2.686 [id number] [facility] 2021-02-22 13:46:43 2021-02-22 14:41:46 Office Visit [place] [facility] 1..114 350.1.13.10 4.2.7.2.686 [id number] [facility] 2021-02-22 14:00:00 2021-02-22 14:00:00 Outpatient R [place] [facility] [id number] [facility] 2021-02-16 00:00:00 2021-02-16 00:00:00 Telephone Radha Trinidad [facility] 1.84.114 350.1.13.10 4.2.7.2.686 [id number] [facility] 2021-02-12 13:51:08 2021-02-12 15:01:56 Urgent Care Care, Gal Adult Urgent Unknown, Attending Ashley Raines [facility] 1..114 350.1.13.10 4.2.7.2.686 [id number] [facility] 2021-02-12 13:45:00 2021-02-12 13:45:00 Outpatient R UNKNOWN, ATTENDING [facility] [id number] [facility] 2021-02-12 00:00:00 2021-02-12 00:00:00 Telephone Curtis Morley [facility] 1..114 350.1.13.10 4.2.7.2.686 [id number] [facility] 2021-02-11 00:00:00 2021-02-11 00:00:00 Telephone Radha Trinidad [facility] 1.0.114 350.1.13.10 4.2.7.2.686 [id number] [facility] 2021-02-08 09:00:00 2021-02-08 09:00:00 Outpatient R CURTIS MORLEY [facility] [id number] [facility] 2021-02-08 00:00:00 2021-02-08 00:00:00 Telephone Radha Trinidad [facility] 1.0.114 350.1.13.10 4.2.7.2.686 [id number] [facility] 2021-02-01 00:00:00 2021-02-01 00:00:00 [facility] 1..114 350.1.13.10 4.2.7.2.686 [id number] [id number] [facility] 2021-01-31 00:00:00 2021-01-31 00:00:00 Orders Only Doctor Unassigned, Odum [facility] 1..114 350.1.13.10 4.2.7.2.686 [id number] [facility] 2021-01-30 00:00:00 2021-01-30 00:00:00 Chan Suarez [facility] 1..114 350.1.13.10 4.2.7.2.686 [id number] [facility] 2021-01-30 00:00:00 2021-01-30 00:00:00 RefRadha Caldwell [facility] 1.2.840.114 350.1.13.10 4.2.7.2.686 [id number] [facility] 2021-01-25 13:30:00 2021-01-25 13:30:00 Outpatient RADHA GUPTA [facility] [id number] [facility] 2021-01-24 15:50:41 2021-01-24 16:59:23 Office Visit Radha Trinidad [facility] 1..840.114 350.1.13.10 4.2.7.2.686 [id number] [facility] 2021-01-24 16:00:00 2021-01-24 16:00:00 Outpatient RADHA GUPTA [facility] [id number] [facility] 2021-01-20 09:00:00 2021-01-20 09:00:00 Outpatient RADHA GUPTA [facility] [id number] [facility] 2021-01-11 09:30:00 2021-01-11 09:30:00 Outpatient CURTIS HARRISON [facility] [id number] [facility] 2021-01-07 11:30:00 2021-01-07 11:30:00 Outpatient AZALIA ORELLANA [facility] [id number] [facility] 2021-01-05 00:00:00 2021-01-05 00:00:00 Telephone Radha Trinidad [facility] 1.2.840.114 350.1.13.10 4.2.7.2.686 [id number] [facility] 2021-01-03 00:00:00 2021-01-03 00:00:00 Patient Secure Msg Azalia Michel [facility] 1.0.114 350.1.13.10 4.2.7.2.686 [id number] [facility] 2020-12-31 00:00:00 2020-12-31 00:00:00 Patient Secure Msg Doctor Unassigned, Odum [facility] 1.840.114 350.1.13.10 4.2.7.2.686 [id number] [facility] 2020-12-31 00:00:00 2020-12-31 00:00:00 Refill Doctor Unassigned, Odum [facility] 1.840.114 350.1.13.10 4.2.7.2.686 [id number] [id number] [facility] 2020-12-31 00:00:00 2020-12-31 00:00:00 Refill Cait Sainz [facility] 1.2.840.114 350.1.13.10 4.2.7.2.686 [id number] [facility] 2020-12-31 00:00:00 2020-12-31 00:00:00 Refill Doctor Unassigned, Odum [facility] 1.2840.114 350.1.13.10 4.2.7.2.686 [id number] [facility] 2020-12-30 17:19:08 2020-12-30 17:34:08 Urgent Care Monika Summers F Unknown, Attending [facility] 1.2.840.114 350.1.13.10 4.2.7.2.686 [id number] [facility] 2020-12-30 17:15:00 2020-12-30 17:15:00 Outpatient R UNKNOWN, ATTENDING [facility] [id number] [facility] 2020-12-24 10:30:00 2020-12-24 10:30:00 Outpatient R MARILU AZALIA [facility] [id number] [facility] 2020-12-24 00:00:00 2020-12-24 00:00:00 Orders Only Doctor Unassigned, Odum [facility] 1.84.114 350.1.13.10 4.2.7.2.686 [id number] [facility] 2020-12-21 09:12:04 2020-12-21 10:15:32 Office Visit Curtis Morley [facility] 1.84.114 350.1.13.10 4.2.7.2.686 [id number] [facility] 2020-12-21 09:30:00 2020-12-21 09:30:00 Outpatient R CURTIS MORLEY [facility] [id number] [facility] 2020-12-20 00:00:00 2020-12-20 00:00:00 Telephone Curtis Morley [facility] 1.84.114 350.1.13.10 4.2.7.2.686 [id number] [id number] [facility] 2020-12-14 08:55:44 2020-12-14 08:56:16 Office Visit Camilo Corley [facility] [employer] [facility] 1..840.114 350.1.13.10 4.2.7.2.686 [id number] [facility] 2020-12-14 08:15:00 2020-12-14 08:15:00 Outpatient CAMILO ISRAEL [facility] [id number] [facility] 2020-12-14 07:58:10 2020-12-14 08:13:10 Office Visit Camilo Corley [facility] 1.84.114 350.1.13.10 4.2.7.2.686 [id number] [facility] 2020-12-14 08:00:00 2020-12-14 08:00:00 Outpatient R CAMILO CORLEY [facility] [id number] [facility] 2020-12-13 11:00:00 2020-12-13 11:00:00 Outpatient R PAWEL ARGUETAJENNIFERTHOMASJosesito [facility] [id number] [facility] 2020-12-08 00:00:00 2020-12-08 00:00:00 Patient Secure Msg Doctor Unassigned, Odum [facility] 1..114 350.1.13.10 4.2.7.2.686 [id number] [facility] 2020-12-03 08:06:52 2020-12-03 09:07:25 Office Visit B[place], [facility] Resident Jenny Avila [facility] 1..114 350.1.13.10 4.2.7.2.686 [id number] [facility] 2020-12-03 08:00:00 2020-12-03 08:00:00 Outpatient R [facility] [id number] [facility] 2020-12-01 00:00:00 2020-12-01 00:00:00 Radha Stafford [facility] 1.0.114 350.1.13.10 4.2.7.2.686 [id number] [facility] 2020-11-29 00:00:00 2020-11-29 00:00:00 Patient Secure Msg Doctor Unassigned, Odum [facility] 1.840.114 350.1.13.10 4.2.7.2.686 [id number] [facility] 2020-11-26 09:13:13 2020-11-26 09:43:13 Office Visit Taurus Guadalupe [facility] 1..114 350.1.13.10 4.2.7.2.686 [id number] [facility] 2020-11-26 09:00:00 2020-11-26 09:00:00 Outpatient R TAURUS GUADALUPE [facility] [id number] [facility] 2020-11-15 11:15:00 2020-11-15 11:15:00 Outpatient R EMILY ARGUETA [facility] [id number] [facility] 2020-11-09 16:30:40 2020-11-09 17:00:40 Office Visit Radha Trinidad [facility] 1..114 350.1.13.10 4.2.7.2.686 [id number] [facility] 2020-11-09 16:30:00 2020-11-09 16:30:00 Outpatient R RADHA TRINIDAD [facility] [id number] [facility] 2020-11-02 00:00:00 2020-11-02 00:00:00 Patient Outreach Tacos Giron [facility] 1..114 350.1.13.10 4.2.7.2.686 [id number] [facility] 2020-10-29 00:00:00 2020-10-29 00:00:00 Telephone Radha Trinidad [facility] 1.84.114 350.1.13.10 4.2.7.2.686 [id number] 311 [id number] [facility] 2020-10-28 13:00:00 2020-10-28 23:59:00 Hospital Encounter Radha Trinidad [facility] 1..114 350.1.13.10 4.2.7.2.686 [id number] [facility] 2020-10-28 00:00:00 2020-10-28 00:00:00 Outpatient RADHA GUPTA [facility] [id number] [facility] 2020-10-22 00:00:00 2020-10-22 00:00:00 Telephone Radha Trinidad [facility] 1.840.114 350.1.13.10 4.2.7.2.686 [id number] 311 [id number] [facility] 2020-10-21 08:04:47 2020-10-21 08:59:28 Office Visit Radha Trinidad [facility] 1.840.114 350.1.13.10 4.2.7.2.686 [id number] [facility] 2020-10-21 08:00:00 2020-10-21 08:00:00 Outpatient RADHA GUPTA [facility] [id number] [facility] 2020-10-18 07:52:00 2020-10-18 11:07:00 Hospital Encounter Curtis Morley Scooter [facility] 1.840.114 350.1.13.10 4.2.7.2.686 [id number] [facility] 2020-10-18 00:00:00 2020-10-18 00:00:00 Orders Only Doctor Unassigned, Odum [facility] 1.840.114 350.1.13.10 4.2.7.2.686 [id number] [facility] 2020-10-15 09:59:05 2020-10-15 10:14:05 Laboratory Only Only, Pcp Test Curtis Morley [facility] 1.840.114 350.1.13.10 4.2.7.2.686 [id number] [facility] 2020-10-15 10:00:00 2020-10-15 10:00:00 Outpatient CURTIS HARRISON [facility] [id number] [facility] 2020-10-14 00:00:00 2020-10-14 00:00:00 Telephone Radha Trinidad [facility] 1.2.840.114 350.1.13.10 4.2.7.2.686 [id number] [facility] 2020-10-14 00:00:00 2020-10-14 00:00:00 Telephone TrinidadaRdha vidal [facility] 1.2.840.114 350.1.13.10 4.2.7.2.686 [id number] [facility] 2020-10-14 00:00:00 2020-10-14 00:00:00 Telephone Emily Argueta [facility] 1.2.840.114 350.1.13.10 4.2.7.2.686 [id number] [facility] 2020-10-13 08:47:44 2020-10-13 10:04:25 Office Visit BirdRadha [facility] 1.2.840.114 350.1.13.10 4.2.7.2.686 [id number] [facility] 2020-10-13 09:00:00 2020-10-13 09:00:00 Outpatient R RADHA TRINIDAD [facility] [id number] [facility] 2020-10-11 11:15:00 2020-10-11 11:15:00 Outpatient EMILY MADERA [facility] [id number] [facility] 2020-10-06 00:00:00 2020-10-06 00:00:00 Patient Secure Msg Doctor Unassigned, Odum [facility] 1.2.840.114 350.1.13.10 4.2.7.2.686 [id number] [facility] 2020-09-24 00:00:00 2020-09-24 00:00:00 [facility] 1.2.840.114 350.1.13.10 4.2.7.2.686 [id number] [facility] 2020-09-23 08:43:07 2020-09-23 09:51:11 Office Visit Curtis Morley [facility] 1.840.114 350.1.13.10 4.2.7.2.686 [id number] [facility] 2020-09-23 09:00:00 2020-09-23 09:00:00 Outpatient R CURTIS MORLYE [facility] [id number] [facility] 2020-09-23 00:00:00 2020-09-23 00:00:00 Prep For Surgery [facility] 1.840.114 350.1.13.10 4.2.7.2.686 [id number] [facility] 2020-09-17 14:30:00 2020-09-17 14:30:00 Outpatient R [facility] [id number] [facility] 2020-09-13 00:00:00 2020-09-13 00:00:00 Letter (Out) Norma Parker [facility] 1.840.114 350.1.13.10 4.2.7.2.686 [id number] [facility] 2020-09-11 11:21:37 2020-09-11 11:36:37 Urgent Care Ashley Raines [facility] 1.2.840.114 350.1.13.10 4.2.7.2.686 [id number] [facility] 2020-09-11 11:30:00 2020-09-11 11:30:00 Outpatient ASHLEY LIZAMA [facility] [id number] [facility] 2020-09-08 19:59:31 2020-09-08 20:28:35 Urgent Care Samina Booker A [facility] 1..840.114 350.1.13.10 4.2.7.2.686 [id number] [facility] 2020-09-08 19:45:00 2020-09-08 19:45:00 Outpatient SAMINA BLACK [facility] [id number] [facility] 2020-09-02 16:33:28 2020-09-02 16:48:28 Sanitation Worker Cleaning Equipment Visit [facility] Skyler Ferrari [facility] 1.840.114 350.1.13.10 4.2.7.2.686 [id number] [facility] 2020-09-02 16:03:20 2020-09-02 16:33:20 Office Visit Skyler Ferrari [facility] 1..840.114 350.1.13.10 4.2.7.2.686 [id number] [facility] 2020-09-02 16:00:00 2020-09-02 16:00:00 Outpatient SKYLER DOUGHERTY HOWARD [facility] [id number] [facility] 2020-08-27 10:22:19 2020-08-27 11:41:08 Office Visit Emily Argueta [facility] 1..840.114 350.1.13.10 4.2.7.2.686 [id number] [facility] 2020-08-27 10:30:00 2020-08-27 10:30:00 Outpatient EMILY MADERA [facility] [id number] [facility] 2020-08-27 00:00:00 2020-08-27 00:00:00 Orders Only Doctor Unassigned, Odum [facility] 1.840.114 350.1.13.10 4.2.7.2.686 [id number] [facility] 2020-08-20 13:00:00 2020-08-20 13:00:00 Outpatient R EMILY ARGUETA [facility] [id number] [facility] 2020-08-19 10:34:33 2020-08-19 11:38:15 Office Visit Micheline Mixon [facility] 1.840.114 350.1.13.10 4.2.7.2.686 [id number] [facility] 2020-08-19 10:30:00 2020-08-19 10:30:00 Outpatient MICHELINE NIELSON [facility] [id number] [facility] 2020-08-17 00:00:00 2020-08-17 00:00:00 Patient Secure Msg Guadalupe [facility] 1..840.114 350.1.13.10 4.2.7.2.686 [id number] [facility] 2020-08-12 09:30:00 2020-08-12 09:30:00 Outpatient SKYLER DOUGHERTY [facility] [id number] [facility] 2020-07-31 16:16:45 2020-07-31 16:31:45 Urgent Care Ashley Raines [facility] 1..840.114 350.1.13.10 4.2.7.2.686 [id number] [facility] 2020-07-31 16:15:00 2020-07-31 16:15:00 Outpatient ASHLEY LIZAMA [facility] [id number] [facility] 2020-07-31 00:00:00 2020-07-31 00:00:00 Patient Secure Msg Doctor Unassigned, Odum [facility] 1.2.840.114 350.1.13.10 4.2.7.2.686 [id number] [facility] 2020-07-31 00:00:00 2020-07-31 00:00:00 Orders Only Doctor Unassigned, Odum [facility] 1.2.840.114 350.1.13.10 4.2.7.2.686 [id number] [facility] 2020-07-29 00:00:00 2020-07-29 00:00:00 Patient Secure Msg Doctor Unassigned, Odum [facility] 1.2.840.114 350.1.13.10 4.2.7.2.686 [id number] [facility] 2020-07-28 16:05:38 2020-07-28 16:20:38 Urgent Care Samina Booker A Unknown, Attending [facility] 1.2.840.114 350.1.13.10 4.2.7.2.686 [id number] [facility] 2020-07-28 16:15:00 2020-07-28 16:15:00 Outpatient R UNKNOWN, ATTENDING [facility] [id number] [facility] 2020-07-27 00:00:00 2020-07-27 00:00:00 Telephone Radha Trinidad [facility] 1.2.840.114 350.1.13.10 4.2.7.2.686 [id number] [facility] 2020-07-27 00:00:00 2020-07-27 00:00:00 Telephone Radha Trinidad [facility] 1.2.840.114 350.1.13.10 4.2.7.2.686 [id number] [facility] 2020-07-27 00:00:00 2020-07-27 00:00:00 Telephone Radha Trinidad [facility] 1.2.840.114 350.1.13.10 4.2.7.2.686 [id number] [facility] 2020-07-23 14:42:56 2020-07-23 15:29:43 Office Visit Aiyana Hollingsworth [facility] 1.2.840.114 350.1.13.10 4.2.7.2.686 [id number] [facility] 2020-07-23 14:45:00 2020-07-23 14:45:00 Outpatient R AIYANA HOLLINGSWORTH [facility] [id number] [facility] 2020-07-23 10:06:48 2020-07-23 10:46:48 Ancillary Visit Maki Jacobo Brian A [facility] 1.2.840.114 350.1.13.10 4.2.7.2.686 [id number] [facility] 2020-07-23 00:00:00 2020-07-23 00:00:00 Telephone Radha Trinidad [facility] 1.2.840.114 350.1.13.10 4.2.7.2.686 [id number] [facility] 2020-07-22 00:00:00 2020-07-22 00:00:00 Nurse Triage Bessie Alexandre [facility] 1.2.840.114 350.1.13.10 4.2.7.2.686 [id number] [facility] 2020-07-17 12:40:52 2020-07-17 23:59:00 Hospital Encounter Skyler Ferrari [facility] 1.2.840.114 350.1.13.10 4.2.7.2.686 [id number] [facility] 2020-07-17 12:40:52 2020-07-17 23:59:00 Outpatient SKYLER DOUGHERTY [facility] [id number] [facility] 2020-07-16 13:30:27 2020-07-16 14:23:07 Office Visit Fellow, Cardiology Taurus Guadalupe [facility] 1.2.840.114 350.1.13.10 4.2.7.2.686 [id number] [facility] 2020-07-16 13:30:00 2020-07-16 13:30:00 Outpatient TAURUS TODD [facility] [id number] [facility] 2020-07-15 12:00:00 2020-07-15 12:00:00 Outpatient SKYLER DOUGHERTY [facility] [id number] [facility] 2020-07-13 10:03:54 2020-07-13 12:32:51 Office Visit Octavio Anderson [facility] 1.2.840.114 350.1.13.10 4.2.7.2.686 [id number] [facility] 2020-07-13 10:10:00 2020-07-13 10:10:00 Outpatient OCTAVIO HALE [facility] [id number] [facility] 2020-07-13 08:09:29 2020-07-13 09:09:29 Ancillary Visit Rain Ross Brian A [facility] 1..840.114 350.1.13.10 4.2.7.2.686 [id number] [facility] 2020-07-13 08:00:00 2020-07-13 08:00:00 Outpatient BRADY WOLFE [facility] [id number] [facility] 2020-06-30 15:35:16 2020-06-30 16:05:16 Office Visit Vega Skylre [facility] 1..114 350.1.13.10 4.2.7.2.686 [id number] [facility] 2020-06-30 15:30:00 2020-06-30 15:30:00 Outpatient SKYLER DOUGHERTY HOW[facility] [id number] [facility] 2020-06-30 09:49:13 2020-06-30 10:57:25 Office Visit Lucille Banks [facility] 1..114 350.1.13.10 4.2.7.2.686 [id number] [facility] 2020-06-25 14:51:00 2020-06-25 16:02:06 Office Visit Edel [facility] 1..114 350.1.13.10 4.2.7.2.686 [id number] [facility] 2020-06-25 15:00:00 2020-06-25 15:00:00 Outpatient R AIYANA HOLLINGSWORTH [facility] [id number] [facility] 2020-06-23 00:00:00 2020-06-23 00:00:00 Telephone Radha Trinidad [facility] 1.84.114 350.1.13.10 4.2.7.2.686 [id number] [facility] 2020-06-22 08:00:00 2020-06-22 08:00:00 Outpatient R BRADY ARNOLD [facility] [id number] [facility] 2020-06-22 00:00:00 2020-06-22 00:00:00 Refill Doctor Unassigned, Odum [facility] 1.2840.114 350.1.13.10 4.2.7.2.686 [id number] [facility] 2020-06-14 12:54:45 2020-06-14 14:42:06 Office Visit Lucille Banks [facility] 1.2.840.114 350.1.13.10 4.2.7.2.686 [id number] [facility] 2020-06-14 13:00:00 2020-06-14 13:00:00 Outpatient R LUCILLE BANKS [facility] [id number] [facility] 2020-06-07 08:59:10 2020-06-07 10:09:23 Office Visit Radha Trinidad [facility] 1..840.114 350.1.13.10 4.2.7.2.686 [id number] [facility] 2020-06-07 09:00:00 2020-06-07 09:00:00 Outpatient R RADHA TRINIDAD [facility] [id number] [facility] 2020-06-07 00:00:00 2020-06-07 00:00:00 Patient Secure Msg Doctor Unassigned, Odum [facility] 1.840.114 350.1.13.10 4.2.7.2.686 [id number] 113 [id number] [facility] 2020-06-05 00:00:00 2020-06-05 00:00:00 Telephone [facility] 1..114 350.1.13.10 4.2.7.2.686 [id number] [facility] 2020-06-05 00:00:00 2020-06-05 00:00:00 Telephone [facility] 1.840.114 350.1.13.10 4.2.7.2.686 [id number] [facility] 2020-06-05 00:00:00 2020-06-05 00:00:00 Telephone Tony Grigsby [facility] 1.2840.114 350.1.13.10 4.2.7.2.686 [id number] [facility] 2020-06-05 00:00:00 2020-06-05 00:00:00 Patient Secure Msg Doctor Unassigned, Odum [facility] 1.2840.114 350.1.13.10 4.2.7.2.686 [id number] [facility] 2020-06-05 00:00:00 2020-06-05 00:00:00 Patient Secure Msg Doctor Unassigned, Odum [facility] 1.2840.114 350.1.13.10 4.2.7.2.686 [id number] [facility] 2020-06-04 15:21:29 2020-06-04 16:31:00 Office Visit [facility] Resident Keri Yee [facility] 1..114 350.1.13.10 4.2.7.2.686 [id number] [facility] 2020-06-04 15:30:00 2020-06-04 15:30:00 Outpatient R [facility] [id number] [facility] 2020-06-04 00:00:00 2020-06-04 00:00:00 Patient Secure Msg Doctor Unassigned, Odum [facility] 1..114 350.1.13.10 4.2.7.2.686 [id number] 113 [id number] [facility] 2020-06-03 10:01:28 2020-06-03 10:31:28 Office Visit Micheline Mixon [facility] 1..114 350.1.13.10 4.2.7.2.686 [id number] [facility] 2020-06-03 10:00:00 2020-06-03 10:00:00 Outpatient R MICHELINE MIXON [facility] [id number] [facility] 2020-06-02 00:00:00 2020-06-02 00:00:00 Patient Secure Ankit Calderonriel Young [facility] 1.2.840.114 350.1.13.10 4.2.7.2.686 [id number] [facility] 2020-05-31 00:00:00 2020-05-31 00:00:00 Telephone Micheline Mixon [facility] 1.2840.114 350.1.13.10 4.2.7.2.686 [id number] [facility] 2020-05-31 00:00:00 2020-05-31 00:00:00 Telephone Pcp, Patient Does Not Have A [facility] 1.2840.114 350.1.13.10 4.2.7.2.686 [id number] [facility] 2020-05-28 08:52:00 2020-05-28 12:40:00 Hospital Encounter Norbert Diaz [facility] ([facility]) 1.840.114 350.1.13.10 4.2.7.2.686 [id number] [facility] 2020-05-28 00:00:00 2020-05-28 00:00:00 Orders Only Doctor Unassigned, Odum [facility] 1.2840.114 350.1.13.10 4.2.7.2.686 [id number] [facility] 2020-05-25 08:25:23 2020-05-25 08:40:23 Sanitation Worker Cleaning Equipment Visit Lab, Anthony [facility] Stew Gordy Kennedy [facility] 1.2840.114 350.1.13.10 4.2.7.2.686 [id number] [facility] 2020-05-25 08:30:00 2020-05-25 08:30:00 Outpatient Annalee YANCEYGORDY Mosquera [facility] [id number] [facility] 2020-05-24 08:26:48 2020-05-24 08:41:48 Laboratory Only Only, Pcp Test Norbert Diaz [facility] 1.2.840.114 350.1.13.10 4.2.7.2.686 [id number] [facility] 2020-05-24 08:30:00 2020-05-24 08:30:00 Outpatient NORBERT MARSH GABRIEL [facility] [id number] [facility] 2020-05-17 00:00:00 2020-05-17 00:00:00 Patient Secure Msg Cait Sainz [facility] 1.2840.114 350.1.13.10 4.2.7.2.686 [id number] [facility] 2020-05-14 13:06:12 2020-05-14 13:21:12 Sanitation Worker Cleaning Equipment Visit Lab, Gal [facility] Stew Elder Welch [facility] 1.2840.114 350.1.13.10 4.2.7.2.686 [id number] [facility] 2020-05-14 13:15:00 2020-05-14 13:15:00 Outpatient ELDER ORTIZ [facility] [id number] [facility] 2020-05-13 13:18:56 2020-05-13 17:12:41 Office Visit Cait Sainz [facility] 1.2840.114 350.1.13.10 4.2.7.2.686 [id number] [facility] 2020-05-13 10:24:15 2020-05-13 11:30:53 Office Visit Micheline Mixon [facility] 1.2840.114 350.1.13.10 4.2.7.2.686 [id number] [facility] 2020-05-13 10:30:00 2020-05-13 10:30:00 Outpatient R ORALARMONDRA [facility] [id number] [facility] 2020-05-13 00:00:00 2020-05-13 00:00:00 Orders Only Doctor Unassigned, Odum [facility] 1.2.840.114 350.1.13.10 4.2.7.2.686 [id number] [facility] 2020-05-10 00:00:00 2020-05-10 00:00:00 Patient Secure Msg Doctor Unassigned, Odum [facility] 1.2.840.114 350.1.13.10 4.2.7.2.686 [id number] [facility] 2020-05-10 00:00:00 2020-05-10 00:00:00 Letter (Out) Norma Parker [facility] 1.2.840.114 350.1.13.10 4.2.7.2.686 [id number] [facility] 2020-05-09 10:57:08 2020-05-09 11:59:21 Urgent Care Samina Booker Unknown, Attending [facility] 1.2.840.114 350.1.13.10 4.2.7.2.686 [id number] [facility] 2020-05-09 11:00:00 2020-05-09 11:00:00 Outpatient R UNKNOWN, ATTENDING [facility] [id number] [facility] 2020-02-09 00:00:00 2020-02-09 00:00:00 Odilia Linn [facility] 1.2.840.114 350.1.13.10 4.2.7.2.686 [id number] [facility] 2020-01-27 13:30:00 2020-01-27 13:30:00 Outpatient SKYLER DOUGHERTY HOWARD [facility] [id number] [facility] 2019-10-23 00:00:00 2019-10-23 00:00:00 Outpatient SKYLER DOUGHERTY HOWARD [facility] [id number] [facility] 2019-10-10 00:00:00 2019-10-10 00:00:00 Telephone Skyler Ferrari [facility] 1..114 350.1.13.10 4.2.7.2.686 [id number] [facility] 2019-10-10 00:00:00 2019-10-10 00:00:00 Patient Secure Msg Doctor Unassigned, Odum [facility] 1..114 350.1.13.10 4.2.7.2.686 [id number] [facility] 2019-10-09 00:00:00 2019-10-09 00:00:00 Telephone Skyler Ferrari [facility] 1..114 350.1.13.10 4.2.7.2.686 [id number] [facility] 2019-09-16 17:21:41 2019-09-16 17:51:06 Office Visit Odilia Mejia [facility] 1.84.114 350.1.13.10 4.2.7.2.686 [id number] [facility] 2019-09-16 17:20:00 2019-09-16 17:51:06 Outpatient ODILIA SCHILLING [facility] [id number] [facility] 2019-08-26 10:42:50 2019-08-26 13:40:32 Sanitation Worker Cleaning Equipment Visit Lab, Gal [facility] Stew Elaina Magallanes [facility] 1.840.114 350.1.13.10 4.2.7.2.686 [id number] [facility] [id number] [facility] 2019-07-17 11:47:16 2019-07-17 16:16:00 Emergency X CHALINO BROWN [facility] [id number] [facility] 2019-04-08 10:55:00 2019-04-08 10:55:00 Outpatient Bill Luque W W [id number] [facility] 2019-03-17 11:00:00 2019-03-17 11:00:00 Outpatient Walk-In, Ludmila CHW CHW [id number] [facility] 2019-03-13 16:00:00 2019-03-13 16:00:00 Outpatient Kami Medina [facility] CHW [id number] [facility] 2019-03-01 10:49:00 2019-03-01 10:49:00 [id number] 2019-02-25 07:47:00 2019-02-25 07:47:00 Outpatient Bill Luque Harish W [id number] [facility] 2019-02-24 12:40:00 2019-02-24 12:40:00 Outpatient Bill Luque Harish W [id number] [facility] 2019-02-20 11:19:00 2019-02-20 11:19:00 Outpatient Bill Luque Harish W [id number] [facility] 2019-02-19 15:20:00 2019-02-19 15:20:00 Outpatient Bill Luque Harish W [id number] [facility] 2019-02-06 15:50:00 2019-02-06 15:50:00 Outpatient Radha Wilson Harish W [id number] [facility] 2019-01-07 16:14:00 2019-01-07 16:14:00 Outpatient Radha Wilson CHW [id number] [facility] 2018-12-09 09:46:00 2018-12-09 09:46:00 Outpatient Radha Wilson CHW [id number] [facility] 2018-11-19 08:00:00 2018-11-19 08:00:00 Outpatient Reyes Martinez [facility] [id number] [facility] 2018-10-29 16:00:00 2018-10-29 16:00:00 [id number] 2018-10-14 14:20:00 2018-10-14 14:20:00 Outpatient Walk-In, Only [facility] [id number] [facility] 2018-10-12 09:20:00 2018-10-12 09:20:00 [facility] [id number] 2018-10-09 15:00:00 2018-10-09 15:00:00 Outpatient Radha Wilson [facility] [id number] [facility] 2018-08-28 10:37:00 2018-08-28 10:37:00 Outpatient Steve Radha [facility] [id number] [facility] 2018-08-26 11:40:00 2018-08-26 11:40:00 Outpatient Walk-In, Only [facility] [id number] [facility] 2018-08-16 08:18:00 2018-08-16 08:18:00 Outpatient Radha Wilson [facility] [id number] [facility] 2018-08-09 10:39:00 2018-08-09 10:39:00 Outpatient Radha Wilson [facility] [id number] [facility] 2018-08-08 16:20:00 2018-08-08 16:20:00 Outpatient Radha Wilson [facility] [id number] [facility] Results Test Description Test Time Test Comments Results Result Co mments Source [facility] PELVIS COMPLETE WITH [id number] 22:04:28EXAM: US PELVIS COMPLETE WITH TRANSVAGINAL HISTORY: 39 years-old Female; Provided indication: pelvic pain . LMP = 03/23/2024 TECHNIQUE: Transabdominal and transvaginal ultrasound imaging and colorDoppler evaluation of the pelvis was performed. Manipulator Operator images wereobtained for the record. COMPARISON: Pelvic [...] is unremarkable. Cul-de-sac: No free fluid is present[facility] [id number] 15:21:08* Test Item Value Reference Range Interpretation Comme nts Case Report (test code = 8088167705) Surgical Pathology ?Case: [id number] ? Authorizing Provider: ?Azalia Michel MD ?Collected: ? 03/24/2024 1200 ?Ordering Location: ? ? [facility] ? ? Received: ?03/24/2024 1300 ? Center ? Pathologist: ? Karime Rubio MD ? Specimen: ? ?PERIRECTAL, fissure biopsy ? Final Diagnosis (test code = 9260248075) q8zvmGUgHFLvg0agTFYjjB FuZzEwMzNcZnRuYmpcdWMx FYxxfrYnPGvutWebKCI9ZK DzVK0njFfseLo9eBwnWEZp fhW6tOBfNYjvy4yhVPE9t9 gocgjfBHGfGGzpBp6mkJZe lFjrJhMoQYHzLKt4vY31HZ MccV9pvJCvILo2TSUlaMTm ozSmXbJtPBPpgVTlvTQ8RQ OlRH9fiicdNViuUDooIZGb oeP9YNZxaVFpD9VqLCRoYN 0bxcnyDXE8GKxqGQTyEXZ1 KeZlCYEzc2Zfjcx2LdBucX FyZFxwbGFpblxmczIwXHBh ciBBLiBQRVJJUkVDVEFMLC NZFWCJZXSQNHNYWV7YM8g6 XHBhciAgICAgLSBBTkFMIF LGPMZSD8BYUT9RF50YCDOU TQHVDCPGRt3RO89YVQgdH0 8HE1XVPHKRMDXDZGCMAEJj RiWGG5CIGyrikXFmXYBlRK LtGTQNQbZzLt6MSRnjF5dS P90RYpPPQxJSIB1JJGSZE7 5ccGFyXHBhcmRccGFyXHBh xj20UMD1CkXvo3Z0SHRnCc XwWMTzZN3eoApnQMWiRA5b YYSeL6unfT4uymc9HlNiSE MgDxW7BYXofaR5Mwh5IDYx BXmzb8yzj2TmQ6MkaXDceW s9i7liYSScAwY2eHNsWJkl I8rphfQtiVMeBWIlXHc8aS qzEyOaAAAxm4rovaGyYeOw IHWbIBVtQDUmrMnuxve2mU 78BJOqtH9riIOcIGddblZf QtI6QBhfNVPlUpC7IELzhY HxOSAeN6ssGWKqYGmwNWWa YDblxQBbRCW1yHxcj7T0bB VzaGVldHtcZjBcZnMyOCBO i9YaZKx0nJnhH4KmKFGfBo I4vFCzLAJlGQezWXGtAZVs hcC8nP76SQdzhrG5hWWhn1 Wfi55ho350fX1bvHEqSUZ9 UYTnNNJyjNAmHUCeAJF1KB ReqFCrA4wbPSTmWR3zaunw YWscSSuiRXPvoOY3QAHdpE YkG1YnSENcOAfaKYMloim5 EkAtIz3hdFWuvCujQWyyo9 bov7iwdRYiYdh3SUMmDaGd ZsmfRDvcx4Bus5hwHVQqcn 2fVMU6zZYpaWmsh5O7oYNs UHAfmETpbtVuDEEfXdU4SN kjVO8wld17QFHaCUY2mq1c bGNccGdicmRyaGVhZFxwZ2 YrETByk727XNPdD2WvVOJe k6H8iwYqJsAfZTCtnNI4oc C6GBIoVRd2aOFkghM7gsHx tPOiU1yhpH3pIQUeZW6cer rbe5qvVNulKBbnOBEeeNA6 ijM7IGPgeZEzW0GzzR6iKS XrHNlrPAKpyik6YoUqFo8q dGVyeTcyMFxzYmtwYWdlXH BnbmNvbnRccGduZGVjXHBs YWluXHBsYWluXGYwXGZzMj UjkMuscRayfJ6wKaObDqSd DRxhBK2qXEWgU1dovHJaQJ IcQKPaI8vmNfKelA2jdUdq MVxjZjJcZnMyMFxwYXIgSS BoYXZlIHBlcnNvbmFsbHkg siM4zPL7DVAcZPanTFKfTY DmxYJooy8ppJsqMJBxNV5g IGFncmVlIHdpdGggYWxsIH S3SIOnyGAmaSMttHDvJGCk eSByZXNpZGVudHMsIGZlbG phs8Aae0NvuIW4xR3pc7bg r9GtUTLfpTZ5OS45qqR7vH 1eNJTtWE6oMNGoRD5rwSCz bXZvNZHvr94lmTyeesVjSJ BvcnQuXHBsYWluXGYyXGZz MjhcbGFuZzEwMzNcaGljaF jxEqdyCtIwQLFiMVwqX8rt IwWcWzYuNOjyUTL6lO== Clinical Information (test code = 0989203392) José Luke is a 39 year old female Gross Description (test code = 6216201214) d7jwgGOqVOUqgCVEKZK6NA AfUE6ivBvpaDm7bAkcLTTf tqT3gJFiYKdso2jzEMY5s6 ldakVKDktjYLQxEM8xSNnj YKGbAQ1bYtSqEKGgOrTlEJ BhcGVydzEyMjQwXHBhcGVy pSI2LFZuSI6rqarfZUbcJW paQLRjagC2RIVdaAUvG8Tc SWTqQV1tylzqHWW0EXDSOl jlEc9rhSMnvGpzLuGqHvLn RJMuYECkTTGwv9sgdhELhq jorPb8fF8GZWZqH4KvYT7R m2fdGJCmpAJkRTU3QCkdk4 jmKJblQBI0HAOqNYWqJKUa FZ1PMwNrVFH2SYO8RERgZr G2PHs8AWDKWTLeVTL8MfH5 JQT9PPg6DUQnFZ3hFEwncM ZbVIvcCnihMEteD887JRod NWSlF1VmQ2SwHOymSvOiNB hqHDKeYPYaLKepKYDhW0HD OFIrBFV2SFn2VbFeGMc8ZM p7FY4NEeBsAYWmXsJ6ZDgl JQByPVd4CPzgSL3TTYKaWm dfOGAoDXAjXYU4EfkuEBc6 IDIgXFxzcyAzIFxcZmwgXF ctN20qpUCpIJBPOsvkuODz blxmczIwIFNQRUNJTUVOIE BusMIvJ3fmGxCrQpyqDYRg DQpccGFyZCANClxwbGFpbl xsdHJjaFxmczIyXGVwaWNO CXO0ZG4zRZLBByfmcXOyXU IgPEoPaDRyvX0uioICESvr MNEbW9LvitDyKAjkHWNvjd 1hbGluLCBsYWJlbGVkIHdp dGggdGhlIHBhdGllbnQncy QfUK8eCMBVWAPgsA2tLLLe ICJwZXJpcmVjdGFsLCBmaX SpfLAdVFBdu1WwwXWgQU8o MUFzwjNag8IqXV6lZIOny5 pnU6yyYQKiou9muK7xUYgi fcJqpAdyoxEnu3U1TXLuw4 Z6KDOvbeAdoTIckDGmUY80 BDaaFY9iLUxlDN6jMDHxPV 1rNHHpVSAmaSLuvD9iuiOm reLmtPn8APGcERCwkgEzLE JeRzhsxUI7WEZuWiYmoqYf k8CvvNc4dUJvQRwtMCNxqT 6aiE0gFBAhTMAhxkMFArec TPEtQNvir6PxGLopaRufQT NwNkQaCKcCWL73xJUuTPc6 LCBQQSAoQVNDUCkNClxlcG afUrKotCNxHyQ6UQBoaWIf PMA0VZ4kiJdqXVVnN8ZoK6 SztmO5NGNvmuYAZkbyIPCe IA0KfQ== Disclaimer (test code = 7710134263) q0qymIIdXMGpy0pdXZIqcV FuZzEwMzNcZnRuYmpcdWMx EPbukvMgEIsii0ZrM8WgMt AwMFxhbnNpXGRlZmxhbmcx KCAlGOP6hePrCNLqKQkyIK AuYIhkMc6czCBliUoaVfRz IDKyb4zqsgPMDQklSuLgN7 37PEElIEika5meo1MnKPYz sCZsn5K7UTLOmfwvoMm4bR pnC74ur8V7ZqgjP2njLPXk KCRdY5JkTX2eATRjHro9TP S1OWF1RSKmNHVxH1FyGP9k YMOzlWRpLRd9o2znmDjmSJ KwQPG3l7cmBMdmsnVbVP5n ma7akAo3w2yyugFkSDAiRM SieABWURWxA2VwrYbiUn6g gVt3lShqNrzwBBQ7Eim9DO 8ewz25kaj3wGufRWGxjtss KrZ1KCpdOUHxmuplWIx2RY jpTSQlpPL1QYSrsGDuC3Mo RXMlDZ8dyyx7OKP2SKgmWI MgQuR4ELTmiIRiGSVrdMoo RRpyk590DJH9KnMbQE5iM2 Afh9C7eL4grIGfANTadMVm KgDrURFeet0izCSrTLlzy2 QuOMN9ueX4aQFquAReATCy JX18Aqfvw4QtHxkyn1DbY0 0auQQ4TWmsy7ovCW4vYfW3 uyYeAGrwd0ljtC2yDlC1IS gpTZ6fFF3cGVLbwF2edhbj XHBnYnJkcmhlYWRccGdicm LxMb7qvUydXIQ9YOoeI7kz zH9nIzM0HPzoJ1gfsS6wIK a8PPplbHY1NQFqhS8uFC8e fuede3fmYJneWJtiBEUrkg D6bnZ0OCVkfHXuA2BhtL4n UTCfFK4xqqert4jcJNI4CT kyCWCeCET6VxTnQAQnn8Co yen8ZiHmj0ZnqIXjRQdbQ9 4xp418DNLnbfIyP9rmsNGc bvfhyLZbomvqGGbnrxV0SU McggJbh9NvKJNxHYK1QVee RWdsnQUiEUFwgOiyl1mwB1 RscGFyXHBsYWluXGYxXGZz MjBcbGFuZzEwMzNcaGljaF npYHdrHuLdXWAwRFcwA0me LcMdZ9RjEFPkKrGssNFoT5 ggVGhpcyByZXBvcnQgbWF5 XNjxC6n1WXTrwcTqdHi2og FgXfBkDNFaTML6LDfseTCj DOEcr1QvenjkjXFhWj0caN RmFNWfuB3oJWDwCMDsBTqx UQ7ziOe6DZQJdHJolHXeRj BBMXUkOV42zwCnSDLRhoxg u6V6MXkjLDFzi0SslLKnL3 rpl5IeRWSyi13eRD0mh9M6 a7zhXNK0WV6jp7UkNNExhV SocEWgQRKyl5Teqcerk0Gh RBWwjgNxd6LaMXEqhhZotX FrUWFhklDwuw8ldiTsUVZk DBTcU3EzeufkkPwkjmGaGR Wjac0hzcYcYMF3MQMRWEUc LDTzr3BmsS2xaHKKQOB4dU Ewwr5uilIVcYOaBGTitl80 JPGuDF6hE7qbMNAmUIMyyd IcnDEdk9YrZEShiHI1rAQk MB3PQaRLo17qOYYqBDUVkb UuVFPgvJckoAN1aiW0vY1x IChGREEpLlx+IFRoZSBGRE SyLS9ryzMuk8WtmeOzqHsb OEYkpIYnl0XqaNEuh7WtwX ghm5UksBWktXGjME5dVOYp clxwYXIgVVRNQiBMYWJvcm Z3a0SoRWKnOWCgAGK4dIay ctx9VZJhnP8oCCQnB2afpr arWSbzMANlz0TvcD8dmPZH gOPyn8JqaAVkuKCOzTFlXX 5hjvAdJQjFDYtVJXO5zaHm WBTdc5LtHTsgL0hzY44oqQ odkQr4kQH5IKT5fW0gQuh+ IFxwYXJccGFyIEFwcHJvcH VdRKZjmDpjopNpS9QlqrGk uO3nmRUybnJxXT0uRV0xF7 U4bZEeLAXehqKug6jlZFko dmUgYmVlbiByZXZpZXdlZC Roj3QsWDreYIH9BFicduXd bmNsdWRpbmcgSCZFLCBTcG AkfLQgDHN3VTdaruEwguBs JQ6lmD5ntGinbN9edEKtdF V7tdcpDMYbRXAxlNlqZVOl RX1nkYusaW6bHmTjGkLqDJ rlLK3jQFIjI4yjyRQdVQRz MTIrZ5rmHdPddX0sqXxjJQ xjZjJcZnMyMFxwYXJccGFy XHBsYWluXGYxXGZzMjBcbG FuZzEwMzNcaGljaFxmMVxk XtXjQHXwDJhgK0rjHwQnW4 McCZPxUbRzhDLmP8bcBAdq OOM1VOWoPO5ymUJeBA27zM Lbf8ivQIttdAivmy7oG51e aCDpELlusByiEDCwl77qg1 NfYTEfkoJdkl9cPPQxeuK7 rG9fXKTnxUqfQLYuqOHwXI Kdn1ZnTHhrjMXminXjJBgf QFDdWCZgqEDgggU0iaKgun VonbDxPRInyVoaNAFoh1Um JMDgWXmux5Apav8drSPpIQ WiutRIxPeyhRPsrB9tZ7Vz KZWhONDufw1aVDKgwM4aDN jlb6TdnhqaRAOuLLJuKBCc zwGouq4gIQDmhERNTJ6ENU toiPVrv6VoqoZeP2bJRVW9 NUQwNjYwMjgxKSBleGNlcH LbSKIoqy73QFUnhW4inIuc PSEszV5nkK3evTtjqI6dOh NfSjVaLVktNE9rZIBkJ8rc gTCeQNKrIPOkK1rqNfZbcJ 9jaFxmMVxjZjJcZnMyMFxw YXJ9fQ== Embedded Images (test code = 4558333777) [facility] GLUCOSE (AUTOMATED)2024-03-24 14:48:42* Test Item Value Reference Range Interpretation Comme nts POCT GLU (test code = 9406950956) 111 mg/dL 70-110 H Lab Interpretation (test cod e = 24004-8) Abnormal [facility] GLUCOSE (AUTOMATED)2024-03-24 14:48:42* Test Item Value Reference Range Interpretation Comme nts POCT GLU (test code = 0686110894) 111 mg/dL 70-110 H Lab Interpretation (test cod e = 58554-4) Abnormal [facility] [id number] 14:33:00* Test Item Value Reference Range Interpretation Comme nts POCT PREG (test code = 1605) Negative On board controls acceptable with C Line (test code = 3574) Yes POCT PREG LOT # (test code = 3575) POCT PREG TEST DATE ( test code = 3576) Lab Interpretation (test cod e = 73218-4) Normal [facility] [id number] 14:33:00* Test Item Value Reference Range Interpretation Comme nts POCT PREG (test code = 1605) Negative On board controls acceptable with C Line (test code = 3574) Yes POCT PREG LOT # (test code = 3575) POCT PREG TEST DATE ( test code = 3576) Lab Interpretation (test cod e = 65821-8) [facility]24-[facility]-20 18:54:58 These images do not require a Radiology diagnostic report.[facility] GLUCOSE (AUTOMATED)2024-03-20 18:05:56* Test Item Value Reference Range Interpretation Comme nts POCT GLU (test code = 7980523900) 124 mg/dL 70-110 H Lab Interpretation (test cod e = 69608-1) Abnormal [facility] [id number] 17:43:00* Test Item Value Reference Range Interpretation Comme nts POCT PREG (test code = 1605) Negative On board controls acceptable with C Line (test code = 3574) Yes POCT PREG LOT # (test code = 3575) POCT PREG TEST DATE ( test code = 3576) Lab Interpretation (test cod e = 52903-1) Normal [facility] Hemoglobin A1C [id number] 19:40:00* Test Item Value Reference Range Interpretation Comme nts POCT HBA1C (test code = 4548-4) 9.5 % 4-6 A Lab Interpretation (test cod e = 74623-3) Abnormal [facility] Urinalysis w/o Specific [id number] 19:31:00* Test Item Value Reference Range Interpretation [...] = 3257) 250 Negative - Negati ve [facility] Urinalysis w/o Specific [id number] 19:31:00* Test Item Value Reference Range Interpretation [...] = 3257) 250 Negative - Negati ve [facility] [id number] 19:16:00* Test Item Value Reference Range Interpretation Comme nts POCT PREG (test code = 1605) Negative On board controls acceptable with C Line (test code = 3574) Yes POCT PREG LOT # (test code = 3575) POCT PREG TEST DATE ( test code = 3576) [facility] [id number] 19:16:00* Test Item Value Reference Range Interpretation Comme nts POCT PREG (test code = 1605) Negative On board controls acceptable with C Line (test code = 3574) Yes POCT PREG LOT # (test code = 3575) POCT PREG TEST DATE ( test code = 3576) [facility] Hemoglobin A1C [id number] 20:36:00* Test Item Value Reference Range Interpretation Comme [facility] POCT HBA1C (test code = 4548-4) 6.7 % 4-6 A Lab Interpretation (test cod e = 38059-0) Abnormal [facility] Hemoglobin A1C [id number] 20:36:00* Test Item Value Reference Range Interpretation Comme nts POCT HBA1C (test code = 4548-4) 6.7 % 4-6 A Lab Interpretation (test cod e = 95943-2) [facility]12 21:04:40 These images do not require a Radiology diagnostic report.[facility] GLUCOSE (AUTOMATED)2023-09-12 20:25:01* Test Item Value Reference Range Interpretation Comme nts POCT GLU (test code = 7667213440) 134 mg/dL 70-110 H Lab Interpretation (test cod e = 00335-2) Abnormal [facility] GLUCOSE (AUTOMATED)2023-09-12 20:25:01* Test Item Value Reference Range Interpretation Comme nts POCT GLU (test code = 2099890697) 134 mg/dL 70-110 H Lab Interpretation (test cod e = 47491-6) Abnormal [facility] [id number] 20:06:00* Test Item Value Reference Range Interpretation Comme nts POCT PREG (test code = 1605) Negative On board controls acceptable with C Line (test code = 3574) Yes POCT PREG LOT # (test code = 3575) POCT PREG TEST DATE ( test code = 3576) [facility] [id number] 20:06:00* Test Item Value Reference Range Interpretation Comme nts POCT PREG (test code = 1605) Negative On board controls acceptable with C Line (test code = 3574) Yes POCT PREG LOT # (test code = 3575) POCT PREG TEST DATE ( test code = 3576) [facility] GLUCOSE (AUTOMATED)2023-05-11 18:13:39* Test Item Value Reference Range Interpretation Comme nts POCT GLU (test code = 1880247980) 144 mg/dL 70-110 H Lab Interpretation (test cod e = 49001-4) Abnormal [facility] GLUCOSE (AUTOMATED)2023-05-11 18:13:39* Test Item Value Reference Range Interpretation Comme nts POCT GLU (test code = 1838746095) 144 mg/dL 70-110 H Lab Interpretation (test cod e = 16317-1) [facility]/REFL TITER AND$CONFIRMATORY [id number]-[id number] 17:00:00* Test Item Value Reference Range Interpretation Comme nts RPR (DX) W/REFL TITER AND$CONFIRMATOR Y TESTING-Q (test code = 86995-8) NON-REACTIVE NON-REACTI REPORT COMMENT:FASTING:MAHESH KRAMER (test code = WILLIAMS) PERFORMED BY [employer]; [address] [place] [id number]; SAMAN JOYNER MD,PHD. [facility] [id number] 18:58:00* Test Item Value Reference Range Interpretation Comme nts POCT PREG (test code = 1605) Negative On board controls acceptable with C Line (test code = 3574) Yes POCT PREG LOT # (test code = 3575) POCT PREG TEST DATE ( test code = 3576) [facility] [id number] 18:58:00* Test Item Value Reference Range Interpretation Comme nts POCT PREG (test code = 1605) Negative On board controls acceptable with C Line (test code = 3574) Yes POCT PREG LOT # (test code = 3575) POCT PREG TEST DATE ( test code = 3576) [facility] [id number] 17:26:34* Test Item Value Reference Range Interpretation Comme nts Case Report (test code = 1070539432) Surgical Pathology ?Case: [id number] ? Authorizing Provider: ?Norbert Diaz MD ?Collected: ? 04/09/2023 0905 ?Ordering Location: ? ? [facility] ? ? Received: ?04/09/2023 1134 ? Center ? Pathologist: ? Karime Rubio MD ? Specimens: ? A) - STOMACH, 1. GASTRIC BX EVAL H. PYLORI ? B) - ESOPHAGUS, 2. DISTAL ESOPHAGEAL BX EVAL EOE ? C) - ESOPHAGUS, 3. PROXIMAL ESOPHAGEAL BX EVAL EOE ? Final Diagnosis (test code = 6035760922) l1eywDGuROYcc1qoCDPwwV FuZzEwMzNcZnRuYmpcdWMx IHtccnRmMVxhbnNpXGRlZm jvcncyZYHtMKF3xbBfDPXl DZG3KQD6RrEjYYYzBnUcMT IpWRYjr5pld9QusMTojMXs NLqyoLFyznEslu70xDC5qV 78UT7lQFYfNkU2MDNcyjL5 Utx9ONOdHXKxiSJvS919p9 ogp4qooePlrRF1pKzbRBZm wxeqHvB2GYezDEPdsokyEE o5GRahPICsqKS0RDKlzFNq P3QwOMVaVJ7fraw1CRS9JI qiQKRoXlL3LNVepWJcIWJx rAizQGlrp979IHK1OuSqSU ThznQbnFpjdG8oYyHcZWbl KSHyOZ2rG3YRMXRHCSqvZr lPUFNZOlxwYXJcZmkyODMg YOPENOGJJjrWUN8RU15ABC URBOKXGK9ALQUSAPbAYN7G PRMdL4qYSavZAPVhyiQhYN 5PIElOVEVTVElOQUwgTUVU QVBMQVNJQSBJREVOVElGSU VEXHBhclxmaTAgICAgICAt LL7LRVxlSWLYVE4OYAFJQz dBTklTTVMgSURFTlRJRklF RCBccGFyXGZzMjJccGFyXG StFuHcRf0rWLDFIDzHS0EK PZFJDMGMRPoxERCZW4TDKE pccGFyICAgICAtIFNRVUFN K4DRGPZWBEFSGNrYCY7tT0 mXHTDYMkUXAOMGV2aTJ0yT IUemM0yGSzuGMCrbFMDrSO ItSG5uBh8oVPAXCASOE3Jf Y3MnIG1QMF8ZHLhASXjTEF DBD1EWOBtEPXwBRJlQNN7Y SUZJRUQgXHBhclxmczIyXH PuwyxilgNwSXQsNGIRZ4QH QUdVUywgUFJPWElNQUwsIE QZX2TGRTovlGMeYEYaFDCo PCSSCRIRO7VNAPGWMZPRLU uADV4eF9fZFJYOJpFNYDUO E5yJZ0eUPMqyT4qKGsfQKE qjOUZoUXLxEA9lTp5qBXZY WABFR8GdC3WcUP4NZT2UNN oCRRuFNZSUN2LCZBgCNCsO CArPRY8REACXBUZbPQOywg rhZSVdANHqhr60DMS5AgHt d0Z7YWYkSlRxDZKaVP7jlS gqMVZkKV6rEVCuH1tufL2u khc0XcNoVGGlCgE2GQMypy I2Bna6KLEuDFyiu4zgw2Kf K0AktOAqqEh4g2jxIRUfGf M4aMTsXQblF1ebqnEpwFZo ECXtBZk6tHguDoNjGUHqp5 lzcyBcZmNoYXJzZXQwIENh nLdcuds7nG34JNImgN7fdX AzUZiixiNrUvK9MUkxUJQa EdX2TDNobZPeIWDnC3drZY QwXGdyZWVuMFxibHVlMCA7 nSjcj8R5dAFemEElsXwaOx OnTrYiDOCHb7AgRXx5lImk C0QdPJWwWpA6xSLxHRXwGX zyXCUxWJKbpqM4pF43HAmg hxL7wWXka1Abz37to732aL 3rzJCwMJL7KKZrASEliOPj BJQgWUI9HYPxiXNiK2isAC AhVN7nwyiyDEkdRGzyTRIo gQE9QOOqiVQkA4RkAAJuAC hzHIMbkik7YwHbKt6zrNZt uXhrESwmb8bho4lwxUFjRg j3AMQlBwRnCfttMZojk1Oz q1fdOWYcac5zVWP9hMUftH vgm9X1nYYrMZYmvTTbtbEv FTHhGvH8OCnlVV8imf16ZZ ElOVP0cg1rsGRneNjbxuHp kXHxTPxoU6FbARMxz436VL StT3XsITQaw7P8kaYgZzPb DZNveSB1niP7ZMBjDJb8hK JwlrB9cqKeyQOvR4ffwJ0u XIGaOK0mjimmx2hnEKhlNH giYECglLI3upB8VNIscBNu A1QvbK4cPWXaDFgwYAYpcw j9IlJoAl9wdWJeaUznTYgp YmtwYWdlXHBnbmNvbnRccG duZGVjXHBsYWluXHBsYWlu XGYwXGZzMjRccWxccGxhaW 6cIuKwTmNjNNnkMS2bABOl X8sdyYXvNSEtAPDmL0pcXw OvhH0rfBrkJHtoTmEzKxYs MFxwYXIgSSBoYXZlIHBlcn CeirDviGdbveY9aHQ8RAQd QXrmGWGgJCGcrCEhnm7blP oaJDWsIB0fSTSjmxUnFGnh cYigJRqiEHU9LEOqbXHhcK MgbWFkZSBieSByZXNpZGVu qXAbWVHhvCqtd5Fjf7NzxK J1bF2qp9unc1FxBQMzcZY7 JB45txS7yR0dUUFtXZ3nLJ TcXT3seAFrsLPeEAEmm53w dGhpcyByZXBvcnQuXHBsYW luXGYyXGZzMjhcbGFuZzEw MzNcaGljaFxmMlxkYmNoXG GiEKlsL1bvCoUxJfOqMXyz CFA6nEphcqDpIIcyt7ZmW9 YyMjAwMFxhbnNpXGRlZmxh fbaoIDPzIFK9vaFkCCNpMR tmBIEiLXzgIq6znVFapWes AzXkWGImi2oxolTOKMkbMh NwQ084GZMtJMnqw4xhe8It STZrbNThx3K0NWCWjcqudM u8wEfqG82bp4Z9ArprQ1di DMKsUENxS3AxPW1gBBWtBy p4SXL7BEL2WWJjGRJcT3Lc RS0eCUNqmUQjBKy8b6xvsQ riLZBdHLV5g7kzVWxgypH3 LH3dab3wqZt7z0dyrfMdFJ MyYNNhlHNWMYWgF6DtwPqc Kw5fkWy3aSvfQffpVVX7Gf t3YH1mnp76apo8wMnuWCOx smmqLzB0FEdmBTWznzfoKB l9NHplWPCskGQ5GTOvhCMz U9EzVQWnZP0gsjl8RMJ5DJ ieSNNpIxY3MWQglFHyRWKn vXkrADvwc266UUJ9GqCuAA 2uK3Phr2D7uW4nlENdZMWe jYTtHvYqDTJzrd0evUJvRW gjp5UzD88fzVA0ZXnqr8ge QW2bMoJ8zmHlHJcac3gffP 8qHpG0NEtpHK3nna35NPEt XED7za5gkDOexKjylfJyaI WgHPbbD6KwPMWsz745ETUh R0WnCJRzt8I0alFaHeUnQZ QxrNX6xhP2EABkBJr7aWNi ozW8uwDsbTKsD1hkbE5iAT TqGY9cvkykc4rsKSitCMgs ULZqpZO9zyC9XXPvqODnJ9 XnmY7wVRBwKXofUEFfily8 CeGaJq2cuBHjpUxoOGtgMj twYWdlXHBnbmNvbnRccGdu ZGVjXHBsYWluXHBsYWluXG BqPRAcAlVxhJVrDWopp3Zy qtKjjHjaQBJcJOq3hnDaqm dkaSs9iRZmaBcsLGAavCcs iY3dDbWjBgXpLPtjSA4mBC LsL3oebXAcJLLzXDBbJ5cp GoXbcF6jsAwfCLqrKwChZa MyMFxsdHJjaFxwYXIgSSBo YXZlIHBlcnNvbmFsbHkgcm C6dAV2FWZvOPeoZQGhOUYr jWDblt0aoCnuTVGjMB6jNR FncmVlIHdpdGggYWxsIHN0 YXRlbWVudHMgbWFkZSBieS ByZXNpZGVudHMsIGZlbGxv w8Dwn6ZxxTU4yP1kb1unq1 InXMDqtVN9JE78wgA5mS8j CBBpKK7oYRKqRR8uhLAbjX LsRZMci14mgRpegjVuCYVy cnQuXHBsYWluXGYxXGZzMj BcbGFuZzEwMzNcaGljaFxm GWoaXmAoJJKvRKftJ2jzHu AgO3GlNWQiLuSfxAQgPDEk qbqsCCUsp7IyQgJrh7vuFT tix0ltyIr3UYlslCNslopz COrihgC9FGPdRCuzKILqFE ZzMTRcbGFuZzEwMzNcaGlj aFxmMVxkYmNoXGYxXGxvY2 hfFbGvR8NaSNCrCCBanOUg F0kiZVL7fX2to6eix7ZgeA IkTnJxp7gkcoBmVKHrzDVk mkMitSMvOIPge1KoCFJkGH NdNUDJIq8AJDIilIZaC6k2 dPPLHF3mhEOgOLXvCTWlP4 PuDwRFkaWgh9F7KIZzrRYf LZLNJGCffGJiS0h6jVaaGK xbHll6QlAoiWyefM0sGqQw RwImVKysNC3qYIJbW1rilH YnVNFtTHIgI0zaGpKdxF3x aFxmMVxjZjJcZnMyMFxsdH KslUlnSPD9mI== Clinical Information (test code = [id number]) José Luke is a 38 year old female1. GASTRIC BX EVAL H. PYLORI2. DISTAL ESOPHAGEAL BX EVAL EOE3. PROXIMAL ESOPHAGEAL BX EVAL EOE Gross Description (test code = [id number]) q5gudKLqLNHwvYUAPPQ8JH ZyRI7flBcbcGf2cIiaZGUk ntJ3nNYdYNtho1svMTD3o5 ooqcRMAiukUXHjHU1aXZqt YQWwCI1uHsWqAEYbTpEnPE BhcGVydzEyMjQwXHBhcGVy xYG2YNIrRO4faectMShvUK zeFBQxjxU3JGIplHNdV3Jg QMIzYJ6pqnkiWZW4HPMJKy jtYr0qtDDelLzpRaTpVyAt YXJzZXQwXGZuaWwgQXJpYW e8xU8IMuujNPL4IJIPQzal JstwuChfx2IhlXFwMBXgND xcaWQgNTEwMDAgXFxkYiBP UxEsTpX6NBRjAOgyFlZ0LV w9FRKBNLAtGca7HII4AFA5 ANl9HIEoGK7rPHvhbJXiOW znAozcXWkzG633UTcwSOLx T3UvN6SiKKynQpCvKAebZR VxMSIcPDjdZDDhY3QAFIMl PIv9Hmb8DhZaWAy1MUstC2 UFCIReRDDyMHI8IrQ9ZzW2 RCr4VUDQBu1pURw9HPB4Hc S7RoI9TVglZcMqQPFnNwAe IYJmRYLoBZnqnAMgGO9asC cjZGUfLC9DLINgTVqmVRAx TgJwH2FUF7zIXE6nEIuehK JjaFxmczIyXHBhciANClxw LPXfGX7TBRHpCRvrHBw4gk QgNLUbCxXjHUZdJ02he5IA m9MnOB5HSDm7ovXqweodkX 5sFJHtmzByk7HxMNmsvRfb RVVoMoPxADlNzGHlrE0dwm RAJComVGKzO9WnfbLoBTyl YPHljl3doKwkAQxzVwXkVY Eay3v8lZB6vKMrhML0tDMq aVpeQL2acSHqHARXVV04oZ VdbzTnY7VctJPpEaYODCHp ibQpHJvqQHK0qN2foGIuQA 9nSCYcohXas2OeES1tHGOq bVGhUKEasuamqHEsRIh6oR TzVDBpJdZirDllx0NuOFAr LFasWV91ccIbLI9yVCiaPK 7yKFcuAO1gWERmJAUjDJNq LjYgeCAwLjIgeCAwLjEgY2 6jEuWYwYLsf1LzV2hvLV1q aXMgZmlsdGVyZWQgdGhyb3 UkwKTeNCQuo6BsxHVlWEcq TF9wFHQ3Uc6neFFvEEOqmb T0i2PyKYmqXJCkQf8SIQIy uSCYESI1JP8tJAalWTNwY5 KtR8YvfmY0YRSpoiYVMmvf ZbgidZmlu8RztSNfWRSbDS xcaWQgNTEwMDIgXFxkYiBP ToHcXrN0RJInSRpqOrL8YL u8SKKCMsCrFsCpTcN6DlZd MBwnLZy2ZDd7NIxBIhXeBE v3Hkv9CjG4UJY8RNJ8SWjt iZZtFLjod7IzDmAkBODvAW sfryY7DEQwilEbn0MzZLYl BPHeB7yzFeVjVLBMSkextp IwIFNQRUNJTUVOIEJcZnMy MlxwYXIgDQpccGFyZCANCl xwbGFpblxsdHJjaFxmczIy CZDioOTSYHT1QH8kYOATGi qbrGGqUAKmeApcYYgibP7x IJHyYpWwVTCyG4xsAhCaAH PnOwWxTBAfS1vvJLCdVG4C O3UlM6woGQ2gIoFpsoIrJG SkvFVcPBGsmrJnz1UaOVvz biBsYWJlbGVkIHdpdGggdG rfYDFpfZqvrmJbokSlQU8u UISZHEHlgE3dMDJdPfEgf5 IgwOQvb29yvFCpHREcCBIF BYT6BIdgVY6HLrFzcgBtE5 1jd9rngYUfg2VrvLVerCms yPWeeVKdFXYoqjaku1HpsZ DmKH4mfFNrND17TPysulOa eHkyitLxr2G0EWPkz3H0FI BmcmFnbWVudHMgKHJhbmdp bmcgZnJvbSBsZXNzIHRoYW 5wXX4yTQDrEUMjKuBjxGOo znGwxaZysUWimJGbmM4ptc Pgw79yGHXfYWO6OAKpUCK9 ATSlRRSecXXzkpVsX7ssUW txhUIkYwBIrVRzx2OyD5zm RT4blRHfCmwfdQSwNEAkmA sgv4TvdNCcGJOka9ZdhTCd XBweVR3tYOH1Lf1dcZWnTU JyfhL9m1TyEHdxQRIsSc6G VAJbiXUSEWQ1YA7eBVwvEP WwN6SoD5CybbK2OMOuqkRN QoxtPdgaaSref8MmzROuKL NnIFxcaWQgNTEwMDIgXFxk GwTYJsQiXbI9VQPbCWviGp A5FSu8QGLEPdRzXoZtFcV7 YgFoIjAvQIw7KPj8BLoRHf XcDLl1Vhh7DQFlPVQ9XFQ8 QCqslGJzMYvwk6SrGtYmDQ QeHElrqzA1KNEbsvVcl5Wj VTUwVMAcR0awJmTqLRNGIl xmczIwIFNQRUNJTUVOIENc ZnMyMlxwYXIgDQpccGFyZC ANClxwbGFpblxsdHJjaFxm zfYpETLawPLHVSK3VF0bMD ANClxsdHJwYXJcbGluMFxy dM7iSRImXfGhVRAbS7ikFp LtYJ3IQ9TjQ7giLF5eOiIw cyByZWNlaXZlZCBpbiBmb3 JtYWxpbiBsYWJlbGVkIHdp dGggdGhlIHBhdGllbnQncy EoQI1yHXCIODBjcC9oOTBx IyFji8xneCUaJBHzw6YuOG syXHneTlvsPKBxmFVAU9Ek IEUkZMMdn49lpHR1ryOuUa PpBVOkgs9ebQ0kUJQgsDe2 uqPws8f3E9QgfTDqgkVcF5 EaRMWtn73hlLG6iRKkbLIa MzDdD84gtaVpRLhxBW3ggQ 8zQYIim35bGI4cCTKwJWPm MyBjbSBpbiBncmVhdGVzdC OarS3mfqOkp66oTIYtRVW0 GFEyRTR0OCHvMCCzzPQtol GkO1ozZKkhtMZgFpWViHWs o6HmY5cwMQ3tcVOpAtqgmT MlLEZkvKlzd1GohWYxXHCh j4CweHUdRJrmBR2cUBI5Ix 3umMYiUXPysnU1j8ViDNjh YQOwAzsiOYBbPUklg8XaEO VfcGLEs8FgUM3WHLRvzfQN EcuyKQGsYIUrpRVNi5WuPX PMNb2xddbeCZKcWLR4q3Ub MJJCCWbVL1BPYQ8OQXByyB CRVTS6LT0gZFqxDTMrG2Xl Y2ZwmwK8c4uiaJrnw6VqoB IgHT2crMCmKH8DTKJdhvOd DQp9 Disclaimer (test code = [id number]) k6amiWJlSHHxy3hbGTZzcT FuZzEwMzNcZnRuYmpcdWMx AMuvtwAdHJtpu5AwG5SsJp AwMFxhbnNpXGRlZmxhbmcx GMJaSIX4vcFbVMXoCFxoYX HpNIcyXm8ymHCqaZujWnZz CJBtg0ltcwIVRKndVoOpL6 41AWSuDNvlw0tgd4YmWGMg mYRjx4G9QWIZfxfhpVt1jN meK25jw9A0DckuP5enQDCy ADSbK4IzCG9gLNTnTyl6PR S5QJN0ZEPbCGCzT7StFY1m OBXxxWGtACx6l2hagJiiYC MxBGR3n2pfGPrgxvFzWO1r li5bfXl7o5mjdwSuTVHwYR FidXBKAVJiZ0TlgTwqMy8b mRt1rLczLjyzMIJ1Kct2AL 8khs34orl1iQrvJYHgcyme HmB0BPisCBRtzqlwYZt6OO yiCRMmpEO1CCHbwTTuH2Sm SSPsTW3sayg1DSF2DWgpNO PsEmF7VPFxnFSsPFGgzFma ZHoyb911QRY7EiQeUQ7wG0 Ikm7C7mF4rqZZkWXFkkPYk SzJrKTZtdu2ayESfGParb0 RlFFA7qqX3mIOxkYPvDHSa MH86Lxqkq3QbEtgof0NdV2 3itCT7CAgqp7hqEW0fWaA3 nmNbJKkmq5pdrQ3cEuV0PB xeTC4tWC2yFZSulR4wpsmz XHBnYnJkcmhlYWRccGdicm SwPd3kbGffAAX3MQedI2xa qL5jSmF4IMcxA6onrL3eAZ h0WSodgLE2DPQdgF3sQD7t wovsy8bsEVlgFWfnPZWbjj T1dxJ8TEPpmAWkQ6MhjL0y HINsMO8whjbme6ldQWG0PH diSIXbYEO3AeHhRFQqa2Dp rto0GlGge2ZhfRIvHEscN6 8nr568CKLeugBrZ1rhrLRp fqtfsDQamnmjSWkbipD8AC KvbiQfg0NxTDAcVUX6AKqo SYvwtBIwVMMspXrne5fhD2 RscGFyXHBsYWluXGYxXGZz MjBcbGFuZzEwMzNcaGljaF ulTMqzXfIjDPUjKZrhQ4gc CdQaN0HiMDMwCmHgxYZuH4 ggVGhpcyByZXBvcnQgbWF5 XWedS6w4TKSamdAzaGs4dp XvWjGgCRMoEFD1YLrcrNPz XJWcx0DwbkuxyOLcOm2lfV YpORAjyB6qIEUfITMfWJax TO0cmOw1WLTPcHCjnQGuPt LHUNThEJ44rnQbUYQSyhko c2Z5SDtfXWVvl5SfmJHqY8 nsg2TxSVFny34gVA0ke6L9 t3ubBWU4BX5qo2OxTNAjjF PshHJgLCJfp3Xbushtm6Ki TZFyxyXsm3OdDDJbzsBacW QtDAUjasFsok6bpmXkIEAm DQIbG2LgliggbRyaqoCuEL Ksyl0qmgTcAVN3WYMZRVOn MAOys2QfbY9hhVWJOOE5eR Swuv2lhkTZqMHbCRFofi67 SZYzGK6aT9ljNMQzBOKzmv ZsyRLax6GaSOUmxNN6zPZo LY2MKnGKk74fBISzGQRKlz IdWERsmVxtfKT5xaW3bQ0u IChGREEpLlx+IFRoZSBGRE OzOV9uoaGnh4UfozDmgQhn MYYqvQInu4JexUHsa2IjnJ bwi2AzzABedTQwGK7wUJTx clxwYXIgVVRNQiBMYWJvcm P5n6SpPODsDGVlFNM1rIft wub8JPWxmD7bKPNvJ5bumf gmVRyhPEWxn1WdvV9ftLPW bRKin8DypXEkcQANvJHjEC 5zhgEcJSoRWOiKFWE4svQs WSZso7JcITqwT3rpJ09ctY chuOw9xOJ6NAO9sF5kIpe+ IFxwYXJccGFyIEFwcHJvcH YrAMGqnVqhwtCbI8ImlsXy zH9pgMMoovQrFF6uRB6jW9 F5wPYbDPRnefFzr0zaKDnc dmUgYmVlbiByZXZpZXdlZC Izd9JaOGtnSFX6ORnrotIl bmNsdWRpbmcgSCZFLCBTcG ZtvYGqZOX0DLeykxCiyzOt WT2qeT5xcCuhhO7igELkxL O3tgasKEIrMUFvpZofJYXc ZO1pgLclcA9hUvNiFoYfRT zmRA5nRIThQ4pnkBSkSQPr VLCkN1guSrGniF5ooQjjYO xjZjJcZnMyMFxwYXJccGFy XHBsYWluXGYxXGZzMjBcbG FuZzEwMzNcaGljaFxmMVxk VkMsRGViYCpuW6psDtUnW9 RuICBmYoEseGZpD6vaHPqh PJC6KMCdMT0nfMWjCK89bS Qfd2mbFRpcsNviic7nF90t aPKoAGhqsFqkOMEyk83ym7 RhEMTsbrYjjn6lCKIadrP2 dA6wZWEcwBpbSVLwpMFuUU Dlm3FgIBzbqUIpzwXvCVih YGVwZFAjvJBzodY2qfQcbr ToedUbVXRksFzeWZEwo1Dw ECEeNKujb2Fkum9bxABhRC DfybEQhBkcvMUecH4bI5Nc QYQrLLMgmc6lISIpmO9aIL dtj5PrssvhUFKrZCFyYPWu sfLpsn9nRZQkeTDCJS7BLY uhcRVbm2RjocQtU5jPFOP4 NUQwNjYwMjgxKSBleGNlcH WtOJYool55DQOiiT0knZoh BPXusT7yjW6peRemhM8xAy CjAySrMGtvEO2gASHqL1xi nBGmCWRqTNOlQ5jnDnWdpR 9jaFxmMVxjZjJcZnMyMFxw YXJ9fQ== Embedded Images (test code = [id number]) [facility] GLUCOSE (AUTOMATED)2023-04-09 13:04:56* Test Item Value Reference Range Interpretation Comme nts POCT GLU (test code = [id number]) 240 mg/dL 70-110 H Lab Interpretation (test cod e = 68831-0) Abnormal [facility] GLUCOSE (AUTOMATED)2023-04-09 13:04:56* Test Item Value Reference Range Interpretation Comme nts POCT GLU (test code = 7025898500) 240 mg/dL 70-110 H Lab Interpretation (test cod e = 72509-9) Abnormal [facility] [id number] 00:00:00* Test Item Value Reference Range Interpretation Comme nts POCT PREG (test code = 1605) Negative On board controls acceptable with C Line (test code = 3574) Yes POCT PREG LOT # (test code = 3575) POCT PREG TEST DATE ( test code = 3576) [facility] [id number] 00:00:00* Test Item Value Reference Range Interpretation Comme nts POCT PREG (test code = 1605) Negative On board controls acceptable with C Line (test code = 3574) Yes POCT PREG LOT # (test code = 3575) POCT PREG TEST DATE ( test code = 3576) [facility] [id number] 05:21:47 * Test Item Value Reference Range Interpretation Comments Anticardiolipin Antibody IgG (test code = 9877986713) 11.9 See_Comment H [Automated message] The system which generated this result transmitted reference range: 0.0 - 10.0 GPL. The reference range was not used to interpret this result as normal/abnormal . Anticardiolipin Antibody IgM (test code = 1810899983) 1.8 See_Comment [Automated message] The system which generated this result transmitted reference range: 0.0 - 10.0 MPL. The reference range was not used to interpret this result as normal/abnormal . Anticardiolipin Antibody IgA (test code = 6897813457) 1.5 See_Comment [Automated message] The system which [...] 4: 2210-4 Lab Interpretation (test code = 79669-6) [facility] [id number] 05:21:47 * Test Item Value Reference Range Interpretation Comments Anticardiolipin Antibody IgG (test code = 2850807523) 11.9 See_Comment H [Automated message] The system which generated this result transmitted reference range: 0.0 - 10.0 GPL. The reference range was not used to interpret this result as normal/abnormal . Anticardiolipin Antibody IgM (test code = 1500665783) 1.8 See_Comment [Automated message] The system which generated this result transmitted reference range: 0.0 - 10.0 MPL. The reference range was not used to interpret this result as normal/abnormal . Anticardiolipin Antibody IgA (test code = 4676546567) 1.5 See_Comment [Automated message] The system which [...] 4: 2210-4 Lab Interpretation (test code = 72544-3) [facility] [id number] 05:21:31* Test Item Value Reference Range Interpretation Comments Anti-B2 Glycoprotein 1 IgG (test code = 1933232205) 2.8 See_Comment [Automated message] The system which generated this result transmitted reference range: 0.0 - 20.0 SGU. The reference range was not used to interpret this result as normal/abnormal. Anti-B2 Glycoprotein 1 IgM (test code = 4110490008) 0.6 See_Comment [Automated message] The system which generated this result transmitted reference range: 0.0 - 20.0 SMU. The reference range was not used to interpret this result as normal/abnormal. Anti-B2 Glycoprotein 1 IgA (test code = 5654628853) 2.6 See_Comment [Automated message] The system which [...] losses and/or thrombocytopenia. TEST PERFORMED AT:[facility] [address] [place] [address] [place] [address] Lab Interpretation (test code = 05175-1) Normal [facility] [id number] 05:21:31* Test Item Value Reference Range Interpretation Comments Anti-B2 Glycoprotein 1 IgG (test code = 2003652474) 2.8 See_Comment [Automated message] The system which generated this result transmitted reference range: 0.0 - 20.0 SGU. The reference range was not used to interpret this result as normal/abnormal. Anti-B2 Glycoprotein 1 IgM (test code = 7685425327) 0.6 See_Comment [Automated message] The system which generated this result transmitted reference range: 0.0 - 20.0 SMU. The reference range was not used to interpret this result as normal/abnormal. Anti-B2 Glycoprotein 1 IgA (test code = 1407763751) 2.6 See_Comment [Automated message] The system which [...] losses and/or thrombocytopenia. TEST PERFORMED AT:[facility]. [address] [place] [address], [address] [facility] [place] [address] Lab Interpretation (test code = 86857-9) Normal [facility] GLUCOSE (AUTOMATED)2022-12-11 15:26:47* Test Item Value Reference Range Interpretation Comme nts POCT GLU (test code = 2823424481) 91 mg/dL 70-110 Lab Interpretation (test cod e = 38847-6) [facility] GLUCOSE (AUTOMATED)2022-12-11 15:26:47* Test Item Value Reference Range Interpretation Comme nts POCT GLU (test code = 5903843817) 91 mg/dL 70-110 Lab Interpretation (test cod e = 97686-2) Normal [facility] [id number] 14:48:00* Test Item Value Reference Range Interpretation Comme nts POCT PREG (test code = 1605) Negative On board controls acceptable with C Line (test code = 3574) Yes POCT PREG LOT # (test code = 3575) POCT PREG TEST DATE ( test code = 3576) Lab Interpretation (test cod e = 52110-0) Normal [facility] [id number] 14:48:00* Test Item Value Reference Range Interpretation Comme nts POCT PREG (test code = 1605) Negative On board controls acceptable with C Line (test code = 3574) Yes POCT PREG LOT # (test code = 3575) POCT PREG TEST DATE ( test code = 3576) Lab Interpretation (test cod e = 42539-0) [facility] SARS-COV-2 ANTIGEN (BINAX NOW)2022-11-29 17:40:00* Test Item Value Reference Range Interpretation Comme nts POCT SARS-COV-2 ANTIGEN (marie t code = 04187-8) Not Detected Not Detected On board controls acceptable with C Line (test code = 3574) Yes [facility] SARS-COV-2 ANTIGEN (BINAX NOW)2022-11-29 17:40:00* Test Item Value Reference Range Interpretation Comme nts POCT SARS-COV-2 ANTIGEN (marie t code = 63217-8) Not Detected Not Detected On board controls acceptable with C Line (test code = 3574) Yes [facility] MOLECULAR [id number] 17:14:55* Test Item Value Reference Range Interpretation Comme nts POCT Molecular Strep (test c ode = 95594-4) Negative Negative Lab Interpretation (test cod e = 76994-0) Normal [facility] MOLECULAR [id number] 17:14:55* Test Item Value Reference Range Interpretation Comme nts POCT Molecular Strep (test c ode = 85203-7) Negative Negative Lab Interpretation (test cod e = 35606-3) Normal [facility] GLUCOSE (AUTOMATED)2022-09-15 16:40:41* Test Item Value Reference Range Interpretation Comme nts POCT GLU (test code = 7242972257) 133 mg/dL 70-110 H Lab Interpretation (test cod e = 38638-0) Abnormal [facility] GLUCOSE (AUTOMATED)2022-09-15 16:40:41* Test Item Value Reference Range Interpretation Comme nts POCT GLU (test code = 8477444091) 133 mg/dL 70-110 H Lab Interpretation (test cod e = 05818-5) Abnormal [facility] [id number] 16:35:00* Test Item Value Reference Range Interpretation Comme nts POCT PREG (test code = 1605) Negative On board controls acceptable with C Line (test code = 3574) Yes POCT PREG LOT # (test code = 3575) POCT PREG TEST DATE ( test code = 3576) Lab Interpretation (test cod e = 73832-0) Normal [facility] [id number] 16:35:00* Test Item Value Reference Range Interpretation Comme nts POCT PREG (test code = 1605) Negative On board controls acceptable with C Line (test code = 3574) Yes POCT PREG LOT # (test code = 3575) POCT PREG TEST DATE ( test code = 3576) Lab Interpretation (test cod e = 56921-7) [facility]UL[facility] [id number] 22:21:22Related Clinical History The patient is 37 years old female who has been followed by pain management for radicular pain. She recently had sacroiliac injections which did not help with her symptoms. Me dications: Not currently taking any antiplatelet or anticoagulant medications Family History: No known family history of coagulation disorder 09/05/2022 4:21 PM [facility] Lab Results ? Ref. Range [...] IgA? <15.0 APL? 0.1? 09/05/2022 4:21 PM [facility] SERVICESCoag DMT interpretation This patient has [...] or complications in women. 09/05/2022 4:21 PM [facility] SERVICESRecommendations If clinically indicated, repeat the antiphospholipid antibody panel in 12 weeks, to evaluate the patient for antiphospholipid syndrome. ? 09/05/2022 4:21 PM [facility] Sendout- [id number] Lupus Anticoagulant Reflexive [id number] 14:40:11* Test Item Value Reference Range Interpretation Comme nts Miscellaneous Test (test code = 8735653168) See scanned report Performing Lab (test code = 1870997908) [facility] [id number] 03:44:30 * Test Item Value Reference Range Interpretation Comments Anticardiolipin Antibody IgG (test code = 9941640988) 20.9 See_Comment H [Automated message] The system which generated this result transmitted reference range: 0.0 - 10.0 GPL. The reference range was not used to interpret this result as normal/abnormal . Anticardiolipin Antibody IgM (test code = 0762589571) 1.5 See_Comment [Automated message] The system which generated this result transmitted reference range: 0.0 - 10.0 MPL. The reference range was not used to interpret this result as normal/abnormal . Anticardiolipin Antibody IgA (test code = 3119616313) 0.1 See_Comment [Automated message] The system which [...] 4: 2210-4 Lab Interpretation (test code = 61935-1) [facility]normal [facility] [id number] 03:44:30 * Test Item Value Reference Range Interpretation Comments Anticardiolipin Antibody IgG (test code = 4269681586) See_Comment H [Automated message] The system which generated this result transmitted reference range: 0.0 - 10.0 GPL. The reference range was not used to interpret this result as normal/abnormal . Anticardiolipin Antibody IgM (test code = 4814384451) See_Comment [Automated message] The system which generated this result transmitted reference range: 0.0 - 10.0 MPL. The reference range was not used to interpret this result as normal/abnormal . Anticardiolipin Antibody IgA (test code = 2553459290) See_Comment [Automated message] The system which generated [...] 4: 2210-4 Lab Interpretation (test code = 29564-9) Abnormal [facility] GLYCOPROTEIN I [id number] 03:40:36* Test Item Value Reference Range Interpretation Comments Anti-B2 Glycoprotein 1 IgG (test code = 9622880525) 3.0 See_Comment [Automated message] The system which generated this result transmitted reference range: 0.0 - 20.0 SGU. The reference range was not used to interpret this result as normal/abnormal. Anti-B2 Glycoprotein 1 IgM (test code = 4639584780) 1.5 See_Comment [Automated message] The system which generated this result transmitted reference range: 0.0 - 20.0 SMU. The reference range was not used to interpret this result as normal/abnormal. Anti-B2 Glycoprotein 1 IgA (test code = 4865113891) 5.1 See_Comment [Automated message] The system which [...] losses and/or thrombocytopenia. TEST PERFORMED AT:[facility] [id number] [place] [address], [address] [facility] [place] [address] Lab Interpretation (test code = 65604-8) Normal [facility] GLYCOP[facility] I [id number] 03:40:36* Test Item Value Reference Range Interpretation Comments Anti-B2 Glycoprotein 1 IgG (test code = 7345922502) See_Comment [Automated message] The system which generated this result transmitted reference range: 0.0 - 20.0 SGU. The reference range was not used to interpret this result as normal/abnormal. Anti-B2 Glycoprotein 1 IgM (test code = 1055120178) See_Comment [Automated message] The system which generated this result transmitted reference range: 0.0 - 20.0 SMU. The reference range was not used to interpret this result as normal/abnormal. Anti-B2 Glycoprotein 1 IgA (test code = 8201445335) See_Comment [Automated message] The system which generated [...] losses and/or thrombocytopenia. TEST PERFORMED AT:[facility]. [address] [place] [address] [place] [address] Lab Interpretation (test code = 22227-1) Normal [facility] [id number] 17:19:00* Test Item Value Reference Range Interpretation Comme [facility] POCT PREG (test code = 1605) Negative On board controls acceptable with C Line (test code = 3574) Yes POCT PREG LOT # (test code = 3575) POCT PREG TEST DATE ( test code = 3576) [facility] [id number] 17:19:00* Test Item Value Reference Range Interpretation Comme nts POCT PREG (test code = 1605) Negative On board controls acceptable with C Line (test code = 3574) Yes POCT PREG LOT # (test code = 3575) POCT PREG TEST DATE ( test code = 3576) [facility] [id number] 20:18:00* Test Item Value Reference Range Interpretation Comme nts POCT PREG (test code = 1605) Negative On board controls acceptable with C Line (test code = 3574) Yes POCT PREG LOT # (test code = 3575) POCT PREG TEST DATE ( test code = 3576) Lab Interpretation (test cod e = 30147-5) Normal [facility] [id number] 20:18:00* Test Item Value Reference Range Interpretation Comme nts POCT PREG (test code = 1605) Negative On board controls acceptable with C Line (test code = 3574) Yes POCT PREG LOT # (test code = 3575) POCT PREG TEST DATE ( test code = 3576) Lab Interpretation (test cod e = 83553-1) Normal [facility] [id number] 17:01:00* Test Item Value Reference Range Interpretation Comme nts POCT PREG (test code = 1605) Negative On board controls acceptable with C Line (test code = 3574) Yes POCT PREG LOT # (test code = 3575) POCT PREG TEST DATE ( test code = 3576) [facility] [id number] 17:01:00* Test Item Value Reference Range Interpretation Comme nts POCT PREG (test code = 1605) Negative On board controls acceptable with C Line (test code = 3574) Yes POCT PREG LOT # (test code = 3575) POCT PREG TEST DATE ( test code = 3576) [facility] History and Physical Notes Date/Time Note Provider [...] Taking miralax BID without constipation/diarrhea issues. 11/08/21 José Luke is a 36 year old female [...] 05/2020, and the results were benign. 01/07/21 oJsé Luke is a 35 year old female with PMH DM, PID, chronic low back pain, fatty liver, who presents for preop visit for hemorrhoids. She states that her pain and discomfort at last visit has improved with diet modification, increased water intake, and hemorrhoid foam (she uses sparingly). She is having regular BM and no bleeding recently. Allergies José is allergic to buspirone and latex. Medications [...] mouth in the morning. 90 tablet 1 Lpywlepctx-Nrtddjfxvptou-Iwtq 50-300-40 mg per capsule TAKE 1 CAPSULE BY MOUTH EVERY 6 HOURS NEEDED fluticasone propionate 50 mcg/actuation nasal spray Use 1 [place] in each nostril in the morning. 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: [employer]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: [employer] Tobacco Use Smoking status: Every Day Smokeless tobacco: Current Tobacco comments: vapes Vaping Use Vaping status: Some Days Substance and Sexual Activity Alcohol use: No Drug use: No Sexual activity: Yes Partners: Male control/protection: Inserts Social History Narrative Plans 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 Endoscopy H & P Age: [age] year old Sex: female ASA Class: III Indication: chronic nausea, heartburn, dysphagia, José Luke is a 38 year old [...] N/A 05/28/2020 Surgeon: Norbert Diaz MD; Location: [place] [facility] COLONOSCOPY 05/28/2020 COLPOSCOPY HEMORRHOIDECTOMY N/A 11/14/2021 Surgeon: Azalia Michel MD; Location: [facility] OR LOCATION SACROILIAC JOINT INJECTION Right 10/18/2020 Surgeon: Curtis oMrley MD; Location: [place] [facility] No current facility-administered medications for this encounter. 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 Informed consent obtained/verified. Education provided to the patient about the procedure. Norbert Diaz MD [facility] Division of Gastroenterology and Hepatology [facility]
[2024-08-11 19:54] LABS: Absolute Monocytes 0.4 K/uL (0.1-1.3); Absolute Neutrophil 3.9 K/uL (1.8-8.0); Basophils % 0.5 % (0-1.3); Eosinophils % 0.5 % (0-4.4); Hematocrit 38.5 % (36.0-45.0); Hemoglobin 12.9 g/dL (12.0-15.0); Lymphocytes % 31.2 % (15.3-44.8); MCH 30.3 pg (27.0-35.0); MCHC 33.5 g/dL (32.0-36.0); MCV 90.6 fL (80-100); MPV 10.5 fL (7.6-11.3); Monocytes % 6.3 % (3.3-12.3); Neutrophils % 61.5 % (41.7-73.7); Nucleated Red Blood Cells % 0.1 % (0-0); Platelets 228 thou/uL (152-406); RBC Red Blood Cell Count 4.25 M/uL (3.86-4.86); Red Cell Distribution Width 13.5 % (12.1-15.2)
[2024-08-11 19:55] LABS: Specific Gravity > 1.030 (1.005-1.030)
[2024-08-11 19:57] LABS: Specific Gravity > 1.030 (1.005-1.030); Sqamous Epithelial <5 /HPF (None Seen); Urine Bacteria None Seen /HPF (<20); Urine Bilirubin NEGATIVE (Negative); Urine Blood Negative (Negative); Urine Clarity Clear (Clear); Urine Color Light-Yellow (Yellow); Urine Culture Reflex Order NOT NEEDED; Urine Glucose 4+ (Over) (Negative); Urine Ketones 1+ (Negative); Urine Microscopic Reflex YN ORDER UMIC; Urine Mucus Slight /HPF (None Seen); Urine Nitrite NEGATIVE (Negative); Urine Protein NEGATIVE (Negative); Urine RBC <5 /HPF (None Seen); Urine Urobilinogen Normal (Normal); Urine WBC <5 /HPF (<5); Urine Yeast (Budding) Trace /HPF (None Seen); Urine pH 6.5 (5.0-7.0)
[2024-08-11 20:15] LABS: Anion Gap 10.7 mEq/L (5.0-15.0); Potassium 3.7 mEq/L (3.5-5.1)
--- NOTE | 2024-08-11 20:37 | RAD REPORT ---
EXAM: Transvaginal OB HISTORY: ABD CRAMPING, COMPARISON: None TECHNIQUE: Multiple grayscale and color Doppler images were obtained in a transvaginal pelvic ultraso und. Spectral analysis of the Doppler waveforms of the ovaries were performed. FINDINGS: UTERUS: Tiny 2 mm intrauterine saclike structure which is indeterminant. No pole, yolk sac, or heart tones identified. No evidence of subchorionic hemorrhage. No free fluid is seen in the pelvis. RIGHT OVARY: Nonvisualized. LEFT OVARY: Normal flow. Simple cyst in the left ovary measuring 2.6 x 2 cm. IMPRESSION: 1. Intrauterine saclike structure which could represent a normal IUP but is too small to confidently evaluate. Recommend correlating with beta hCG and consider short-term follow-up ultrasound. 2. Nonvisualized right ovary. The left ovary has vascular flow.
--- NOTE | 2024-08-11 21:09 | ER ---
Nurse's Notes [facility] Name: Kelsey Harrell Age: 39 yrs Sex: Female : 1985 Arrival Date: 08/11/2024 Time: 18:16 Bed DX1 Private MD: Diagnosis: Chest pain, unspecified;Other specified related conditions, first trimester;Less than 8 weeks gestation of ;Threatened Presentation: 08/11 18:46 Chief complaint: Patient states: Midsternal CP, radiates to right back x 3 days, lower jl7 abdominal pain x 2 days; reports positive test today, unknown LMP. Coronavirus screen: At this time, the client does not indicate any symptoms associated with coronavirus-19. Ebola Screen: No symptoms or risks identified at this time. Initial Sepsis Screen: Does the patient meet any 2 criteria? No. Patient's initial sepsis screen is negative. Does the patient have a suspected source of infection? No. Patient's initial sepsis screen is negative. Risk Assessment: Do you want to hurt yourself or someone else? Patient reports no desire to harm self or others. Onset of symptoms was August 08, 2024. 18:46 Method Of Arrival: Ambulatory jl7 18:46 Acuity: LENA 3 jl7 Triage Assessment: 18:47 General: Appears in no apparent distress. uncomfortable, Behavior is calm, cooperative, jl7 appropriate for age. Pain: Complains of pain in chest and abdomen Pain currently is 6 out of 10 on a pain scale. Cardiovascular: Patient's skin is warm and dry. TEARER PRESS CLIPPING: 18:47 LMP 05/2024, unknown jl7 Historical: - Allergies: 18:47 Latex; jl7 - PMHx: 18:47 Chronic pain (neuropathy); diabetes mellitus; neuropathy; Skeletal bone disorder jl7 (neuropathy); - Immunization history:: Adult Immunizations unknown. - Infectious Disease History:: Denies. - Social history:: Smoking status: Patient/guardian denies using tobacco. Screenin:00 [facility] ED Fall Risk Assessment (Adult) History of falling in the last 3 months, kb3 including since admission No falls in past 3 months (0 pts) Confusion or Disorientation No (0 pts) Intoxicated or Sedated No (0 pts) Impaired Gait No (0 pts) Mobility Assist Device Used No (0 pt) Altered Elimination No (0 pt) Score/Fall Risk Level 0 - 2 = Low Risk Oriented to surroundings. Abuse screen: Denies threats or abuse. Denies injuries from another. Nutritional screening: No deficits noted. Tuberculosis screening: No symptoms or risk factors identified. Assessment: 21:00 Reassessment: Patient appears in no apparent distress at this time. No changes from kb3 previously documented assessment. Patient and/or family updated on plan of care and expected duration. Pain level reassessed. 21:00 Pain: Complains of pain in abdomen Pain does not radiate. Pain currently is 3 out of 10 kb3 on a pain scale. Quality of pain is described as crampy, Is intermittent. Vital Signs: 18:46 BP 126 / 83; Pulse 92; Resp 17; Temp 97.8; Pulse Ox 98% ; Weight 70.31 kg; Height 5 ft. jl7 4 in. ; Pain 6/10; 18:46 Body Mass Index 26.61 (70.31 kg, 162.56 cm) jl7 18:46 Pain Scale: Adult jl7 ED Course: 18:19 Patient arrived in ED. mr 18:47 Triage completed. jl7 18:47 Arm band placed on right wrist. jl7 19:02 Delilah Allison MD is Attending Physician. gb1 19:47 Inserted saline lock: 20 gauge in left antecubital area, using aseptic technique. Blood rv1 collected. Flushed with 10 mL NS. 19:47 Basic Metabolic Panel Sent. rv1 19:47 CBC with Diff Sent. rv1 19:47 Test, Urine Sent. rv1 19:47 Quantitative Hcg Sent. rv1 19:47 Urinalysis w/ reflexes Sent. rv1 20:21 US Transvaginal Ob In Process Unspecified. EDMS 20:40 Attending Physician role handed off by Delilah Allison MD wally 20:40 Tony Morgan MD is Attending Physician. [facility] 21:00 Patient has correct armband on for positive identification. Provided Education on: kb3 Discharge. 21:00 No provider procedures requiring assistance completed. IV discontinued, intact, kb3 bleeding controlled, No redness/swelling at site. Pressure dressing applied. Patient maintains SpO2 saturation greater than 95% on room air. Administered Medications: No medications were administered Medication: 21:00 VIS not applicable for this client. kb3 Outcome: 21:08 Discharge ordered by . wally 21:39 Discharged to home ambulatory, kb3 21:39 Condition: stable 21:39 Discharge instructions given to patient, Instructed on discharge instructions, follow up and referral plans. medication usage, Demonstrated understanding of instructions, follow-up care, medications, 21:40 Patient left the ED. kb3 Signatures: Dispatcher [employer] EDMS Tony Morgan MD MD cha Rivera, Padmini, Reg Reg mr Virgil Carney RN RN jl7 Leydi Mcnair RN RN kb3 Nancy Carroll rv1 Delilah Allison MD MD gb1
--- NOTE | 2024-08-11 21:09 | EDPHYS ---
Physician Documentation [facility] Name: Kelsey Harrell Age: 39 yrs Sex: Female : 1985 Arrival Date: 08/11/2024 Time: 18:16 Bed DX1 Private MD: MIKE Physician Tony Morgan HPI: 08/11 20:18 This 39 yrs old Female presents to ER via Ambulatory with complaints of Chest gb1 Pain, Abdominal Pain. 20:18 . 39-year-old female with a positive test at home for abdominal pain and gb1 pelvic cramping. She denies any vaginal bleeding or vaginal discharge. She states that she has pain when she gets up and moves around. She is history of chronic pain and neuropathy, diabetes, antiphospholipid antibody syndrome.. 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 - Infectious Disease History:: Denies. - Social history:: Smoking status: Patient/guardian denies using tobacco. ROS: 20:41 Constitutional: Negative for fever, chills, and weight loss, wally 20:42 Eyes: Negative for injury, pain, redness, and discharge, ENT: Negative for injury, wally pain, and discharge, Neck: Negative for injury, pain, and swelling, Cardiovascular: Negative for chest pain, palpitations, and edema, Respiratory: Negative for shortness of breath, cough, wheezing, and pleuritic chest pain, Back: Negative for injury and pain, : Negative for injury, bleeding, discharge, and swelling, MS/Extremity: Negative for injury and deformity, Skin: Negative for injury, rash, and discoloration, Neuro: Negative for headache, weakness, numbness, tingling, and seizure, Psych: Negative for depression, anxiety, suicide ideation, homicidal ideation, and hallucinations, Allergy/Immunology: Negative for hives, rash, and allergies, Endocrine: Negative for neck swelling, polydipsia, polyuria, polyphagia, and marked weight changes, Hematologic/Lymphatic: Negative for swollen nodes, abnormal bleeding, and unusual bruising, 20:42 Abdomen/GI: Positive for abdominal pain, of the right lower quadrant and left lower quadrant, Exam: 20:18 Constitutional: This is a well developed, well nourished patient who is awake, alert, gb1 and in no acute distress. Head/Face: Normocephalic, atraumatic. Eyes: Pupils equal round and reactive to light, extra-ocular motions intact. Lids and lashes normal. Conjunctiva and sclera are non-icteric and not injected. Cornea within normal limits. Periorbital areas with no swelling, redness, or edema. ENT: Nares patent. No nasal discharge, no septal abnormalities noted. Tympanic membranes are normal and external auditory canals are clear. Oropharynx with no redness, swelling, or masses, exudates, or evidence of obstruction, uvula midline. Mucous membranes moist. Neck: Trachea midline, no thyromegaly or masses palpated, and no cervical lymphadenopathy. Supple, full range of motion without nuchal rigidity, or vertebral point tenderness. No Meningismus. Chest/axilla: Normal chest wall appearance and motion. Nontender with no deformity. No lesions are appreciated. Cardiovascular: Regular rate and rhythm with a normal S1 and S2. No gallops, murmurs, or rubs. Normal PMI, no JVD. No pulse deficits. Respiratory: Lungs have equal breath sounds bilaterally, clear to auscultation and percussion. No rales, rhonchi or wheezes noted. No increased work of breathing, no retractions or nasal flaring. Abdomen/GI: Positive midline lower suprapubic tenderness, with normal bowel sounds. No distension or tympany. No guarding or rebound. No evidence of tenderness throughout. Back: No spinal tenderness. No costovertebral tenderness. Full range of motion. Skin: Warm, dry with normal turgor. Normal color with no rashes, no lesions, and no evidence of cellulitis. MS/ Extremity: Pulses equal, no cyanosis. Neurovascular intact. Full, normal range of motion. Vital Signs: 18:46 BP 126 / 83; Pulse 92; Resp 17; Temp 97.8; Pulse Ox 98% ; Weight 70.31 kg; Height 5 ft. jl7 4 in. ; Pain 6/10; 18:46 Body Mass Index 26.61 (70.31 kg, 162.56 cm) jl7 18:46 Pain Scale: Adult jl7 MDM: 19:02 Medical Screening Exam initiated gb1 20:18 Data reviewed: vital signs, nurses notes, lab test result(s), CBC, electrolytes, UPT: gb1 positive. ED course: 39-year-old female G7, P1 with early positive test and midline pelvic pain. Concern for ectopic versus spontaneous versus live IUP. Patient is vitally stable and at this time has no vaginal bleeding. I have transitioned the patient's clinical care to Dr. Tony Morgan at 2020 pending pelvic ultrasound results as well as beta-hCG quant.. 08/11 19:01 Order name: Basic Metabolic Panel; Complete Time: 20:38 gb1 08/11 19:01 Order name: CBC with Diff; Complete Time: 20:17 gb1 08/11 19:01 Order name: Test, Urine; Complete Time: 20:17 gb1 08/11 19:01 Order name: Quantitative Hcg; Complete Time: 20:38 gb1 08/11 19:01 Order name: Urinalysis w/ reflexes; Complete Time: 20:17 gb1 08/11 19:01 Order name: US Transvaginal Ob; Complete Time: 20:40 gb1 08/11 19:01 Order name: IV Saline Lock; Complete Time: 19:47 gb1 08/11 19:01 Order name: Labs collected and sent; Complete Time: 19:47 gb1 08/11 19:01 Order name: NPO; Complete Time: 21:24 gb1 Administered Medications: No medications were administered Disposition Summary: 08/11/24 21:08 Discharge Ordered Notes: Location: Home wally Problem: new wally Symptoms: have improved wally Condition: Stable wally Diagnosis - Chest pain, unspecified wally - Other specified related conditions, first trimester wally - Less than 8 weeks gestation of wally - Threatened wally Followup: wally - With: Private Physician - When: 2 - 3 days - Reason: Recheck today's complaints, Continuance of care, Re-evaluation by your physician Discharge Instructions: - Discharge Summary Sheet wally - Nonspecific Chest Pain, Adult wally - Care wally - Threatened Miscarriage wally - Vaginal Bleeding During , First Trimester wally - First Trimester of , [id number] wally - Nonspecific Chest Pain, Adult, Motb-bb-Ofzi wally - First Trimester of wally - Threatened Miscarriage, Eebw-[id number] wally Forms: - Medication Reconciliation Form wally - Antibiotic Education wally - Prescription Opioid Use wally - Patient Portal Instructions wally - Leadership Thank You Letter wally Signatures: Dispatcher [employer] Tony Gunn MD MD cha Leal, Jahala, RN RN jl7 Delilah Allison MD MD gb1 Corrections: (The following items were deleted from the chart) 19:02 19:02 BASIC METABOLIC PANEL+C.LAB.BRZ ordered. EDMS EDMS 19: 19:02 CBC+H.LAB.BRZ ordered. EDMS EDMS 19:02 19:02 Test, Urine+UC.LAB.BRZ ordered. EDMS EDMS 19: 19:02 QUANTITATIVE HCG+C.LAB.BRZ ordered. EDMS EDMS 19:02 19:02 Urinalysis+U.LAB.BRZ ordered. EDMS EDMS
[2024-08-12 03:35] VITALS: BP 126/83; TEMP 97.8; O2SAT 98
--- NOTE | 2024-08-15 12:52 | EKG ---
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
== END 2024-08-11 21:40 | disposition home or self-care (01) ==
LOC: ER 18:16
DX: O20.0 Threatened abortion (principal); R07.9 Chest pain, unspecified; Z33.1 Pregnant state, incidental; Z3A.00 Weeks of gestation of pregnancy not specified
CPT/HCPCS: 36415; 76817; 80048; 81001; 81025; 84702; 85025; 93005; 99283

== ENCOUNTER 2024-08-30 21:01 | Emergency (ER) | payer OTHER ==
--- OUTSIDE RECORDS SUMMARY | 2024-08-30 21:19 | XMS REPORT | Continuity of Care Document ---
Author Name Unknown Address [address] [place] [address] [facility] Address [address] [place] [address] Care Team Providers Care Manager Private Name Role Phone Adelaida Ramos MD Primary Care Physician [phone] AZALIA MICHEL Attending Clinician Unavailable AZALIA MICHEL Attending Clinician Unavailable CURTIS MORLEY Attending Clinician UnavailNORBERT Herrera Attending Clinician Unavailable NORBERT DIAZ Attending Clinician Unavailable MARIE GARZON Attending Clinician Unavailable ROSIBEL HUERTA Attending Clinician Unavailable ADELAIDA RAMOS Attending Clinician Unavailable ADELAIDA RAMOS Attending Clinician Unavailable CARMEN FIGUEROA Attending Clinician CARMEN Fallon Attending Clinician ABIEL Rojas Attending Clinician Unavail able GERALD DEL VALLE Attending Clinician Priscilla Carmen Quan MD Attending Clinician + [phone] Lab, Ang - Db Attending Clinician Unavailable Adelaida Ramos MD Attending Clinician +[phone] Azalia Michel MD Attending Clinician +[phone] Marie Garzon MD Attending Clinician [phone] 2, [facility] Attending Clinician Unavailable Curtis Avina MD Attending Clinician [phone] CURTIS AVINA Attending Clinician UnavailGerald Barrientos DNP Attending Clinician BETH PHAM Attending Clinician Unavailable Holly Herrera Attending Clinician [phone] Beth Rodriguez Attending Clinician [phone] Curtis Morley MD Attending Clinician [phone] Sophia Ramirez PA-C Attending Clinician +[phone] SOPHIA RAMIREZ Attending Clinician Unavailable Skyler Ferrari MD Attending Clinician [phone] BIA CHAMORRO Attending Clinician Unavailable Bia Mccann Attending Clinician + [phone] Raj Mcdonough Attending Clinician Unavailable Doctor Unassigned, [place] Attending Clinician U Taylor Leonard MD Attending Clinician NAINA SEGOVIA Attending Clinician Unavailable Beth Rodriguez Attending Clinician [phone] Taylor Verdin MD Attending Clinician Vanda Morales MD Attending Clinician +[phone] [facility] Marie Garzon MD Attending Clinician [phone] YAA DRUMMOND Attending Clinician Unavailable YAA DRUMMOND Attending Clinician Unavailable MADELINE SHAY Attending Clinician Unavailable MADELINE SHAY Attending Clinician Unavailable ARGENTINA LOONEY Attending Clinician Unavailable ARGENTINA LOONEY Attending Clinician Unavailable Saumya Mg Attending Clinician UnaTAYLOR Collier Attending Clinician Priscilla flaco Morley MD, Curtis Helms Attending Clinician [phone] Akinsipe WHCNP, Abiel Mar Attending Clinician + Richa Dominguez MD Attending Clinician Unavailable LabRaj Attending Clinician Unavailable RICHA DOMINGUEZ Attending Clinician Unavailable Doctor Unassigned, [place] Attending Clinician U ervin 2, [facility] Attending Clinician Unavailable EZ PALACIO Attending Clinician UnavailEZ Saenz Attending Clinician UnavailELDER Del Valle Attending Clinician UnavailNorbert Herrera MD Attending Clinician + [phone] Yvonne Mehta RN Attending Clinician UnavailTacos Burgos MD Attending Clinician +[phone] EAMON CARRASCO Attending Clinician Unavailable EAMON CARRASCO Attending Clinician Unavailable Gisella CROWDER, Naina Attending Clinician +[phone] HOLLY FREGOSO Attending Clinician Unavailable Radha Andrade Attending Clinician +[phone] Raul Wilkinson MD Attending Clinician +[phone] DUNCAN RAMOS Attending Clinician UnavailDuncan Red MD Attending Clinician [phone] Sabrina Bee MA Attending Clinician Unavailyen ortiz Vtc-Lab Attending Clinician Unavailable Jacob CHONG, Harjinder White Attending Clinician +[phone] HARJINDER JAMES Attending Clinician Unavail Elder Rivas MD Attending Clinician + [phone] MEGHAN MARKHAM Attending Clinician Unavailable Skyler Ferrari MD Attending Clinician +[phone] Holly Herrera Attending Clinician +[phone] Meghan Markham MD Attending Clinician +[phone] SKYLER FERRARI Attending Clinician Unavail able SKYLER FERRARI Attending Clinician Unavail able [facility], [facility] Lab Attending Clinician UnavailKalli Velasco MD Attending Clinician + [phone] KALLI JEFFERSON Attending Clinician UnavailKALLI Velasco Attending Clinician UnavailLana Shrestha RN Attending Clinician Unavailable CAMILO CORLEY Attending Clinician Judy Corley MD, Camilo Lobo Attending Clinician +[phone] Lab, [facility] [address] Attending Clinician RADHA German Attending Clinician Unavailable Ashley Hernandez Attending Clinician + [phone] Catalina Mendez PA-C Attending Clinician +[phone] Byron Berry MD Attending Clinician + [phone] Only, Adc Test Attending Clinician Unavailable [place] Attending Clinician +[phone] Wade CHONG, Rene Mar Attending Clinician +[phone] SAMINA BOOKER Attending Clinician Unavailable Jhony CREW CHIEF, Samina Umanzor Attending Clinician [phone] Unknown, Attending Attending Clinician Unavailab le Nurse, [facility] Adult [facility]gent Attending Clinician Unav ailable Therapy, [facility] Infusion Attending Clinician Unavailable Tejinder Valles MD Attending Clinician + [phone] TEJINDER VALLES Attending Clinician Unavailable ASHLEY RAINES Attending Clinician Unavailable Alicja CREW CHIEF, Ever Attending Clinician + UNKNOWN, ATTENDING Attending Clinician Unavailab brandon Venegas MD, Barrington Porter Attending Clinician + [phone] CATALINA MENDEZ Attending Clinician Unavail able HEATH JOHNSON Attending Clinician Unavailable Biju CHONG, Brady Moreira Attending Clinician +[phone] Rj CHONG, Amando Umanzro Attending Clinician +- [phone] Elena LAWLER, Norma Burch Attending Clinician Unavailab NEW Maya Attending Clinician Unavaila ble Care, [facility] Adult [facility]gent Attending Clinician Unava josé miguel Souza MD, Chan Attending Clinician Unavailable Emeli CROWDER, Cait Attending Clinician +[phone] Vineet CREW CHIEF, Monika Vogel Attending Clinician EMILY ARGUETA Attending Clinician Unavaila anne Ortega, [facility] Resident Attending Clinician Unavailab brandon Avila MD, Jenny Mantilla Attending Clinician [phone] Taurus Guadalupe MD Attending Clinician +[phone] TAURUS GUADALUPE Attending Clinician Unavailable Tacos Giron DO Attending Clinician [phone] Only, Pcp Test Attending Clinician Unavailable Emily Fay Attending Clinician + [phone] Edel CROWDER, Aiyana Attending Clinician +[phone] [facility]-Lab Attending Clinician Unavailable Micheline Mixon MD Attending Clinician +[phone] MICHELINE MIXON Attending Clinician Unavailable AIYANA HOLLINGSWORTH Attending Clinician Unavailable Andrea Galeano POLICE INSPECTOR, Maki A Attending Clinic hoang Kang MD, Brady Umanzor Attending Clinician +[phone] Bessie Alexandre RN Attending Clinician Unavailable Fellow, Cardiology Attending Clinician Unavailab brandon Anderson CREW CHIEF, Octavio Vidal Attending Clinician +- [phone] OCTAVIO ANDERSON Attending Clinician Unavailable Cody TELLEZ, Rain Attending Clinician Unava BRADY Weeks Attending Clinician Unavailable Lucille Banks LPC Attending Clinician [phone] LUCILLE BANKS Attending Clinician Unavaila Selena Ortez MD Attending Clinician +[phone] Seb LAWLER, Tony Attending Clinician Unavailab Keri Acosta MD Attending Clinician [phone] Pcp, Patient Does Not Have A Attending Clinician Gordy Corbett MD Attending Clinician +[phone] GORDY CORBETT Attending Clinician Unavaila Odilia Farnsworth MD Attending Clinician +[phone] ODILIA MEJIA Attending Clinician Unavailab Elaina Suarez MD Attending Clinician +[phone] CHALINO BROWN Attending Clinician Unavailable Bill Luque Attending Clinician UnavailKami Garrido Attending Clinician Unavailable Radha Wilson Attending Clinician Unavailable Reyes Martinez Attending Clinician Unavailable Genesis Bustamante Attending Clinician Unavailable AZALIA MICHEL Admitting Clinician Unavailable AZALIA MICHEL Admitting Clinician Unavailable CURTIS MORLEY Admitting Clinician Unavaila NORBERT Humphries Admitting Clinician Unavailable Azalia Michel MD Admitting Clinician +[phone] Norbert Diaz MD Admitting Clinician +[phone] SKYLER FERRARI Admitting Clinician Unavail able EZ PALACIO Admitting Clinician Unavaila CAMILO Alonzo Admitting Clinician Unava Curtis Jones MD Admitting Clinician +[phone] CHALINO BROWN Admitting Clinician Unavailable Payers Payer Name Policy Type Policy Number Effective Date Expirati on Date Source [facility] [id number] 2024 00:00:[address] [facility] [id number] 00:00:00 Problems Condition Name Condition Details Condition Category Status Onset Date Resolution Date Last Treatment Date Treating Clinician Comments Source Anal irritation Anal irritation Disease Active 8-02 00:00: 00 [facility] Fissure in ano Fissure in ano Disease Active 802 00:00: 00 [facility] Dermatitis of perianal region Dermatitis of perianal region Disease Active 6-04 00:00: 00 [facility] Obesity (BMI 30-39.9) Obesity (BMI 30-39.9) Disease Active 1-29 00:00: 00 [facility] GENNY (generaliz ed anxiety disorder) GENNY (generaliz ed anxiety disorder) Disease Active 04-05 00:00: 00 [facility] PTSD (post-trau matic stress disorder) PTSD (post-trau matic stress disorder) Disease Active 04-05 00:00: 00 [facility] Persistent depressive disorder Persistent depressive disorder Disease Active 04-05 00:00: 00 [facility] Gastroesop hageal reflux disease, unspecifie d whether esophagiti s present Gastroesop hageal reflux disease, unspecifie d whether esophagiti s present Disease Active 01-02 00:00: 00 Overview: Formattin g of this note might be different from the original. Added automatic ally from request for surgery [id number] [facility] Dysphagia, pharyngoes ophageal phase Dysphagia, pharyngoes ophageal phase Disease Active 01-02 00:00: 00 Overview: Formattin g of this note might be different from the original. 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 Disease Active 5- 00:00: 00 [facility] Nausea Nausea Disease Active 01-01 00:00: 00 [facility] AKHIL (obstructi ve sleep apnea) AKHIL (obstructi ve sleep apnea) Disease Active 3-12 00:00: 00 [facility] Sleep difficulti es Sleep difficulti es Disease Active 2- 00:00: 00 [facility] Chronic fatigue Chronic fatigue Disease Active 2- 00:00: 00 [facility] Chronic nausea Chronic nausea Disease Active 2 00:00: 00 [facility] History of recurrent miscarriag es History of recurrent miscarriag es Disease Active 1- 00:00: 00 [facility] History of recurrent miscarriag es History of recurrent miscarriag es Disease Active 1- 00:00: 00 [facility] Patient desires Patient desires Disease Active 1-03 00:00: 00 [facility] Hirsutism Hirsutism Disease Active 2021-08 2 00:00: 00 [facility] Screen for STD (sexually transmitte d disease) Screen for STD (sexually transmitte d disease) Disease Active 2021-08 2 00:00: 00 [facility] Vaginal discharge Vaginal discharge Disease Active 2021-08 2- 00:00: 00 [facility] Missed menses Missed menses Disease Active 2021-08 2- 00:00: 00 [facility] Pain pelvic Pain pelvic Disease Active 2021-08 2- 00:00: 00 [facility] History of PCOS History of PCOS Disease Active 2021-08 2- 00:00: 00 [facility] Irregular menstrual cycle Irregular menstrual cycle Disease Active 2021-08 2- 00:00: 00 [facility] External hemorrhoid s External hemorrhoid s Disease Active 5-17 00:00: 00 [facility] Grade II internal hemorrhoid s Grade II internal hemorrhoid s Disease Active 5-14 00:00: 00 Overview: Formattin g of this note might be different from the original. Added automatic ally from request for surgery [id number] [facility] Sacroiliit is Sacroiliit is Disease Active 2-11 00:00: 00 Overview: Formattin g of this note might be different from the original. Added automatic ally from request for surgery [id number] [facility] Loose stools Loose stools Disease Active 2019-08 00:00: 00 Overview: Formattin g of this note might be different from the original. Added automatic ally from request for surgery [id number] [facility] Blood in stool Blood in stool Disease Active 2019-08 00:00: 00 Overview: Formattin g of this note might be different from the original. Added automatic ally from request for surgery [id number] [facility] Latex allergy Latex allergy Disease Active 04-17 00:00: 00 [facility] Latex allergy Latex allergy Disease Active 04-17 00:00: 00 [facility] Sciatic nerve disease, right Sciatic nerve disease, right Disease Active 02-10 00:00: 00 [facility] Sciatic nerve disease, right Sciatic nerve disease, right Disease Active 02-10 00:00: 00 [facility] Modified White class B pregestati onal diabetes mellitus Modified White class B pregestati onal diabetes mellitus Disease Active 01-09 00:00: 00 [facility] BMI 35.0-35.9, adult BMI 35.0-35.9, adult Disease Active 12-31 00:00: 00 [facility] Chronic bilateral low back pain without sciatica Chronic bilateral low back pain without sciatica Disease Active 04-02 00:00: 00 [facility] Bronchitis Bronchitis Disease Active [place]: Formattin g of this note might be different from the original. COPD v. asthma [facility] Anxiety Anxiety Disease Active [facility] Fatty liver Fatty liver Disease Active [facility] Pre-eclamp teodora affecting , antepartum Pre-eclamp teodora affecting , antepartum Disease Resolve d 04-24 00:00: 00 2022-06-20 00:00:00 2022-06-20 10:50:20 [facility] 37 weeks gestation of 37 weeks gestation of Disease Resolve d 04-26 00:00: 00 2017-05-28 00:00:00 2017-05-28 17:08:03 [facility] Two vessel umbilical cord in leon , antepartum Two vessel umbilical cord in leon , antepartum Disease Resolve d 04-26 00:00: 00 2017-05-28 00:00:00 2017-05-28 17:08:04 [facility] Two vessel umbilical cord in leon , antepartum Two vessel umbilical cord in leon , antepartum Disease Resolve d 04-26 00:00: 00 2017-05-28 00:00:00 2017-05-28 17:08:04 [facility] Positive GBS test Positive GBS test Disease Resolve d 05 00:00: 00 2017-05-28 00:00:00 2017-05-28 17:07:29 [facility] High-risk , third trimester High-risk , third trimester Disease Resolve d 5-31 00:00: 00 2017-05-28 00:00:00 2017-05-28 17:07:40 [facility] Pre-eclamp teodora Pre-eclamp teodora Disease Resolve d 04-23 00:00: 00 2017-04-26 00:00:00 2017-04-26 08:16:58 [facility] 36 weeks gestation of 36 weeks gestation of Disease Resolve d 04-21 00:00: 00 2017-04-26 00:00:00 2017-04-26 08:16:57 [facility] Elevated blood pressure affecting in third trimester, antepartum Elevated blood pressure affecting in third trimester, antepartum Disease Resolve d 04-20 00:00: 00 2017-04-26 00:00:00 2017-04-26 08:16:57 [facility] Costochond ritis, acute Costochond ritis, acute Disease Resolve d 03-19 00:00: 00 2017-04-26 00:00:00 2017-04-26 08:16:56 [facility] Abnormal ultrasound Abnormal ultrasound Disease Resolve d 01-31 00:00: 00 2017-04-26 00:00:00 2017-04-26 08:16:49 [facility] DM (diabetes mellitus) DM (diabetes mellitus) Disease Resolve d 2017-04-26 00:00:00 2017-04-26 08:16:45 [facility] Vertigo Vertigo Disease Resolve d 2017-04-26 00:00:00 2017-04-26 08:16:52 [facility] PID (pelvic inflammato ry disease) PID (pelvic inflammato ry disease) Disease Resolve d 2017-04-26 00:00:00 2017-04-26 08:16:55 [facility] 24 weeks gestation of 24 weeks gestation of Disease Resolve d 01-29 00:00: 00 2017-04-17 00:00:00 2017-04-17 11:32:15 [facility] Urinary tract infection, site not specified Urinary tract infection, site not specified Disease Resolve d 01-10 00:00: 00 2017-04-17 00:00:00 2017-04-17 11:32:30 [facility] HLD (hyperlipi demia) HLD (hyperlipi demia) Disease Resolve d 04-02 00:00: 00 2017-01-09 00:00:00 2022-02-26 00:17:23 [facility] Type 2 diabetes mellitus without complicati ons Type 2 diabetes mellitus without complicati ons Disease Resolve d 04-02 00:00: 00 2017-01-09 00:00:00 2022-02-26 00:17:23 [facility] control control Disease Resolve d 04-02 00:00: 00 2017-01-09 00:00:00 2017-01-09 14:13:47 [facility] Abdominal pain Abdominal pain Disease Resolve d 11-02 00:00: 00 2017-01-09 00:00:00 2022-02-26 00:07:55 [facility] Allergies, Adverse Reactions, Alerts Allergy Name Allergy Type Status Severity Reaction(s) Onset Date Inactive Date Treating Clinician Comments Source BUSPIRON E DRUG INGREDI Active High Other-Cmnt 10-24 00:00: 00 [facility] Buspiron e Propensi ty to adverse reaction s Active Other - See comments 10-24 00:00: 00 Can't sleep, cannot focus, confusion [facility] Buspiron e Drug Intolera nce Active Other - See comments 10-24 00:00: 00 Can't sleep, cannot focus, confusion [facility] Latex Drug Allergy Active Rash 12-06 00:00: 00 [facility] Latex Propensi ty to adverse reaction s Active Rash 12-06 00:00: 00 [facility] LATEX DRUG INGREDI Active Rash 12-06 00:00: 00 [facility] Social History Social Habit Start Date Stop Date Quantity Comments Source ASSERTION 2024-07-25 00:00:00 [facility] Alcoholic beverage intake 2024-07-24 00:00:00 2024-07-24 00:00:00 Current non-drinker of alcohol (finding) [facility] Tobacco use and exposure 2024-03-19 00:00:00 2024-03-19 00:00:00 User of smokeless tobacco [facility] History of Social function 2024-01-23 00:00:00 2024-01-23 00:00:00 [facility] Cigarettes smoked current (pack per day) - Reported 2024-01-23 00:00:00 2024-01-23 00:00:00 [facility] Cigarette pack-years 2024-01-23 00:00:00 2024-01-23 00:00:00 [facility] Alcohol intake 2023-10-15 00:00:2023-10-15 00:00:00 Current non-drinker of alcohol (finding) [facility] Exposure to SARS-CoV-2 (event) 2022-12-30 00:00:00 2023-01-09 09:52:00 Not sure [facility] Tobacco Comment 2022-05-16 00:00:00 2022-05-16 00:00:00 vapes [facility] History of tobacco use 2016-12-31 00:00:00 2020-07-20 00:00:00 Smokes tobacco daily [facility] Sex assigned at 1985 00:00:00 1985 00:00:00 [facility] Smoking Status Start Date Stop Date Source Ex-smoker 2024-08-14 00:00:00 2024-08-14 00:00:00 [facility] Smokes tobacco daily 2024-03-19 00:00:00 [facility] Occasional tobacco smoker 2020-06-30 00:00:00 [facility] Medications Ordered Medication Name Filled Medication Name Start Date Stop Date Current Medication? Ordering Clinician Indication Dosage Frequency Signature (SIG) Comments Components Source Insulin Glargine (LANTUS SOLOSTAR U-100 INSULIN) 100 unit/mL (3 mL) injection 08-20 00:00: 00 Yes [id number] 14U inject 14 Units under the skin in the morning. [facility] blood sugar diagnostic (ASCENSIA MICROFILL) strip 08-20 00:00: 00 Yes [id number] Use as directed [facility] lancets 33 gauge Misc 08-20 00:00: 00 Yes [id number] Use as directed [facility] Insulin Glargine (LANTUS SOLOSTAR U-100 INSULIN) 100 unit/mL (3 mL) injection 08-15 00:00: 00 08-20 00:00 :00 No [id number] 12U inject 12 Units under the skin in the morning. [facility] PNV 67-iron ps-folate no.1-dha (VITAFOL ULTRA) 29 mg iron- 1 mg-200 mg Cap 08-14 00:00: 00 Yes [id number] 1{tbl} Take 1 tablet by mouth in the morning. If insurance does not cover can substituen t with any other mediation that contains components . [facility] proMETHazin e 12.5 mg tablet 2023-08 00:00: 00 Yes [id number] TAKE 2 TABLETS BY MOUTH EVERY 6 HOURS NEEDED FOR NAUSEA AND VOMITING [facility] meclizine 25 mg tablet 2023-08 00:00: 00 08-25 00:00 :00 No [id number] TAKE 1 TABLET BY MOUTH EVERY 8 HOURS NEEDED [facility] albuterol 90 mcg/actuati on inhaler 2023-08 00:00: 00 Yes [id number] 2{puff} Inhale 2 Puffs every 6 (six) hours as needed for Wheezing or Shortness of Breath. [facility] gabapentin 800 mg tablet 2023-08 00:00: 00 08-25 00:00 :00 No [id number] 800mg Take 1 tablet by mouth at bedtime. [facility] celecoxib 100 mg capsule 2023-08 00:00: 00 08-14 00:00 :00 No [id number] TAKE 1 CAPSULE BY MOUTH IN THE MORNING AND 1 IN THE EVENING WITH MEALS [facility] MECLIZINE 25 mg tablet 2023-08 00:00: 00 07-24 00:00 :00 No [id number] TAKE 1 TABLET BY MOUTH EVERY 8 HOURS NEEDED [facility] PROMETHAZIN E 12.5 mg tablet 2023-08 00:00: 00 07-24 00:00 :00 No [id number] TAKE 2 TABLETS BY MOUTH EVERY 6 HOURS NEEDED FOR NAUSEA AND VOMITING [facility] gabapentin 600 mg tablet 2023-08 00:00: 00 08-25 00:00 :00 No [id number] 600mg Take 1 tablet by mouth every morning and evening. [facility] tiZANidine 4 mg tablet 2023-08 00:00: 00 08-25 00:00 :00 No [id number] TAKE 1 TABLET BY MOUTH THE MORNING, AND 1 TABLET BY MOUTH IN THE AFTERNOON, AND 2 TABLETS AT BEDTIME [facility] gabapentin 800 mg tablet 2023-08 00:00: 00 07-24 00:00 :00 No [id number] 800mg Take 1 tablet by mouth at bedtime. [facility] MECLIZINE 25 mg tablet 2023-08 00:00: 00 07-09 00:00 :00 No [id number] TAKE 1 TABLET BY MOUTH EVERY 8 HOURS NEEDED [facility] PROMETHAZIN E 12.5 mg tablet 2023-08 00:00: 00 07-09 00:00 :00 No [id number] TAKE 2 TABLETS BY MOUTH EVERY 6 HOURS NEEDED FOR NAUSEA AND VOMITING [facility] Insulin [place], Disposable, (BD INSULIN PEN NEEDLE UF) 31 gauge x 5/16" Ndle 05-05 00:00: 00 Yes [id number] Use as directed to administer [facility] tirzepatide (MOUNJARO) 15 mg/0.5 mL subcutaneou s injection 05-05 00:00: 00 08-20 00:00 :00 No [id number] 15mg inject 15 mg under the skin weekly. [facility] Insulin Glargine (LANTUS SOLOSTAR U-100 INSULIN) 100 unit/mL (3 mL) injection 05-05 00:00: 00 08-14 00:00 :00 No [id number] 12U inject 12 Units under the skin in the morning. [facility] fluticasone propionate 50 mcg/actuati on nasal spray 04-21 00:00: 00 08-25 00:00 :00 No [id number] 1{spray } Use 1 [place] in each nostril in the morning. [facility] meclizine 25 mg tablet 04-21 00:00: 06-24 00:00 :00 No [id number] TAKE 1 TABLET BY MOUTH EVERY 8 HOURS NEEDED [facility] proMETHazin e 12.5 mg tablet 04-21 00:00: 00 05-21 00:00 :00 No [id number] TAKE 2 TABLETS BY MOUTH EVERY 6 HOURS NEEDED FOR NAUSEA AND VOMITING [facility] metroNIDAZO LE (FLAGYL) 500 mg tablet 04-18 00:00: 00 08-25 00:00 :00 No [id number] 500mg Take 1 tablet by mouth every 12 (twelve) hours. [facility] fluconazole (DIFLUCAN) 150 mg tablet 04-18 00:00: 00 08-25 00:00 :00 No [id number] 150mg Take 1 tablet by mouth every other day. [facility] tirzepatide (MOUNJARO) 12.5 mg/0.5 mL subcutaneou s injection 04-16 00:00: 00 05-05 00:00 :00 No [id number] 12.5mg inject 12.5 mg under the skin weekly. [facility] oxyCODONE 5 mg immediate release tablet 04-05 00:00: 00 04-13 04:59 :00 No [id number] 5mg Take 1 tablet by mouth every 6 (six) hours as needed for Pain (scale 7-10) for up to 7 days. Indication s: acute pain [facility] celecoxib 100 mg capsule 04-04 00:00: 00 07-24 00:00 :00 No [id number] TAKE 1 CAPSULE BY MOUTH IN THE MORNING AND 1 IN THE EVENING WITH MEALS [facility] tiZANidine 4 mg tablet 03-26 00:00: 00 06-25 00:00 :00 No [id number] TAKE 1 TABLET BY MOUTH THE MORNING, AND 1 TABLET BY MOUTH IN THE AFTERNOON, AND 2 TABLETS AT BEDTIME [facility] MECLIZINE 25 mg tablet 03-26 00:00: 00 04-21 00:00 :00 No [id number] TAKE 1 TABLET BY MOUTH EVERY 8 HOURS NEEDED [facility] celecoxib 100 mg capsule 03-26 00:00: 00 04-04 00:00 :00 No [id number] TAKE 1 CAPSULE BY MOUTH IN THE MORNING AND 1 IN THE EVENING WITH MEALS [facility] oxyCODONE 5 mg immediate release tablet 03-25 00:00: 00 04-02 04:59 :00 No [id number] 5mg Take 1 tablet by mouth every 6 (six) hours as needed for Pain (scale 7-10) for up to 7 days. Indication s: acute pain [facility] ondansetron (ZOFRAN (PF)) injection 4 mg 03-24 17:47: 31 03-24 21:58 :06 No 4mg [facility] HYDROmorpho ne (PF) (DILAUDID) injection 0.25 mg 03-24 17:21: 41 03-24 21:58 :06 No .25mg 0.25 mg, Slow IV Push, Q5MIN PRN, 4 doses, Starting on Sun03/24/24 at 1221, Until Sun03/24/24 at 1658, Routine, Pain (scale 4-6), PACU, Is this medication approved by a Faculty level provider? Yes, community board member approving Restricted medication : PACU RECOVERY [facility] ondansetron (ZOFRAN (PF)) injection 4 mg 03-24 17:21: 41 03-24 21:58 :06 No 4mg 4 mg, Slow IV Push, PRN, 1 dose, Starting on Sun03/24/24 at 1221, Until Sun03/24/24 at 1658, Routine, Nausea and Vomiting (N/V), PACU [facility] lactated ringers IV infusion 1,000 mL 03-24 14:00: 00 03-24 14:38 :00 No 1000mL at 42 mL/hr, 1,000 mL, IV Infusion, ONCE, 1 dose, On Sun03/24/24 at 0900, Routine, DSU Pre-op [facility] celecoxib (CELEBREX) capsule 200 mg 03-24 13:55: 03 03-24 14:38 :00 No 200mg 200 mg, Oral, O.R. HOLDING ONCE, 1 dose, Starting on Sun03/24/24 at 0855, Until Sun03/24/24 at 0938, Routine, Pain, DSU Pre-op [facility] gabapentin (NEURONTIN) tablet 600 mg 03-24 13:55: 03 03-24 14:38 :00 No 600mg 600 mg, Oral, O.R. HOLDING ONCE, 1 dose, Starting on Sun03/24/24 at 0855, Until Sun03/24/24 at 0938, Routine, Surgery/Pr ocedure, DSU Pre-op [facility] acetaminoph en (TYLENOL) tablet 1,000 mg 03-24 13:55: 03 03-24 14:37 :00 No 1000mg 1,000 mg, Oral, O.R. HOLDING ONCE, 1 dose, Starting on Sun03/24/24 at 0855, Until Sun03/24/24 at 0937, Routine, Surgery / Procedure, DSU Pre-op [facility] ibuprofen 600 mg tablet 03-24 00:00: 00 08-14 00:00 :00 No [id number] 600mg TAKE 1 TABLET BY MOUTH EVERY 8 HOURS FOR 15 DAYS [facility] gabapentin 300 mg capsule 03-24 00:00: 00 04-09 04:59 :00 No [id number] 300mg Take 1 capsule by mouth every 8 (eight) hours for 15 days. For pain scale 1-3 [facility] acetaminoph en 325 mg tablet 03-24 00:00: 00 04-09 04:59 :00 No [id number] 975mg Take 3 tablets by mouth every 8 (eight) hours for 15 days. [facility] traMADoL 50 mg tablet 03-24 00:00: 00 04-01 04:59 :00 No [id number] 50mg Take 1 tablet by mouth every 8 (eight) hours as needed (pain) for up to 7 days. Indication s: acute pain [facility] FENTanyl PF (SUBLIMAZE (PF)) injection 03-20 18:31: 57 03-20 18:31 :57 No TITRATE - FOR PROCEDURE USE, 1 dose, Starting on Vicenta 03/20/24 at 1331, Until Vicenta 03/20/24 at 1331, Routine [facility] FENTanyl PF (SUBLIMAZE (PF)) injection 03-20 18:27: 16 03-20 18:27 :16 No TITRATE - FOR PROCEDURE USE, 1 dose, Starting on Vicenta 03/20/24 at 1327, Until Vicenta 03/20/24 at 1327, Routine [facility] lidocaine 1% (PF) (XYLOCAINE) injection 20 mL 03-20 18:25: 00 03-20 18:26 :00 No [id number] 20mL 20 mL, Infiltrati on, ONCE, 1 dose, On Vicenta 03/20/24 at 1330, Routine [facility] iohexoL (OMNIPAQUE 300-50 mL)) injection 3 mL 03-20 18:25: 00 03-20 18:26 :00 No [id number] 3mL 3 mL, Injection, ONCE, 1 dose, On Vicenta 03/20/24 at 1330, Routine [facility] triamcinolo ne acetonide (KENALOG) injection 80 mg 03-20 18:25: 00 03-20 18:26 :00 No [id number] 80mg 80 mg, Infiltrati on, ONCE, 1 dose, On Vicenta 03/20/24 at 1330, Routine [facility] bupivacaine (preserv free) (SENSORCAIN E MPF) 0.25 % (2.5 mg/mL) injection 4 mL 03-20 18:25: 00 03-20 18:26 :00 No [id number] 4mL 4 mL, Infiltrati on, ONCE, 1 dose, On Vicenta 03/20/24 at 1330, Routine [facility] midazolam (VERSED) injection 03-20 18:21: 50 03-20 18:21 :50 No TITRATE - FOR PROCEDURE USE, 1 dose, Starting on Vicenta 8/8/24 at 1321, Until Vicenta 8 at 1321, Routine [facility] FENTanyl PF (SUBLIMAZE (PF)) injection 03-20 18:20: 23 03-20 18:20 :23 No TITRATE - FOR PROCEDURE USE, 1 dose, Starting on Vicenta 03/20/24 at 1320, Until Vicenta 03/20/24 at 1320, Routine [facility] FENTanyl PF (SUBLIMAZE (PF)) injection 03-20 18:19: 20 03-20 18:19 :20 No TITRATE - FOR PROCEDURE USE, 1 dose, Starting on Vicenta 03/20/24 at 1319, Until Vicenta 03/20/24 at 1319, Routine [facility] midazolam (VERSED) injection 03-20 18:09: 00 03-20 18:09 :00 No TITRATE - FOR PROCEDURE USE, 1 dose, Starting on Vicenta 03/20/24 at 1309, Until Vicenta 03/20/24 at 1309, Routine [facility] lactated ringers IV infusion 500 mL 03-20 17:45: 00 03-21 05:44 :00 No [id number] 500mL [facility] PROMETHAZIN E 12.5 mg tablet 03-19 00:00: 00 04-21 00:00 :00 No [id number] TAKE 2 TABLETS BY MOUTH EVERY 6 HOURS NEEDED FOR NAUSEA AND VOMITING [facility] MECLIZINE 25 mg tablet 03-19 00:00: 00 03-26 00:00 :00 No [id number] TAKE 1 TABLET BY MOUTH EVERY 8 HOURS NEEDED [facility] gabapentin 800 mg tablet 03-14 00:00: 00 06-25 00:00 :00 No [id number] 800mg TAKE 1 TABLET BY MOUTH AT BEDTIME [facility] celecoxib 100 mg capsule 03-14 00:00: 00 03-24 00:00 :00 No [id number] TAKE 1 CAPSULE BY MOUTH IN THE MORNING AND 1 IN THE EVENING WITH MEALS [facility] MOUNJARO 15 mg/0.5 mL subcutaneou s injection 03-12 00:00: 00 04-16 00:00 :00 No [facility] gabapentin 600 mg tablet 03-05 00:00: 00 06-25 00:00 :00 No 600mg Take 1 tablet by mouth every morning and evening. [facility] proMETHazin e 12.5 mg tablet 02-27 00:00: 00 03-19 00:00 :00 No [id number] 25mg Take 2 tablets by mouth every 6 (six) hours as needed for nausea vomitting [facility] meclizine 25 mg tablet 02-27 00:00: 00 03-19 00:00 :00 No [id number] 25mg Take 1 tablet by mouth every 8 (eight) hours as needed. [facility] Blood-Gluco se Sensor (DEXCOM G7 SENSOR) Lisa 02-12 00:00: 00 03-24 00:00 :00 No [id number] Use as directed every 10 days [facility] MECLIZINE 25 mg tablet 02-11 00:00: 00 02-26 00:00 :00 No [id number] TAKE 1 TABLET BY MOUTH EVERY 8 HOURS NEEDED [facility] cholecalcif chris, vitamin D3, (VITAMIN D3) 25 mcg (1,000 unit) tablet 02-07 12:56: 00 Yes 1000U Take 1 tablet by mouth in the morning. [facility] Vitamin B-12 1,000 mcg tablet 02-07 12:56: 00 Yes 1000ug Take 1 tablet by mouth in the morning. [facility] lidocaine HCL (ASPERCREME , LIDOCAINE HCL,) 4 % Crea 02-07 00:00: 00 Yes [id number] 1{each} Apply to area(s) in the morning and in the evening. [facility] Miscellaneo us Medical Supply Kit 02-07 00:00: 00 Yes [id number] Use as directed [facility] BABY ASPIRIN ORAL 02-05 13:42: 47 Yes Take by mouth. [facility] metFORMIN 1,000 mg tablet 02-03 00:00: 00 Yes [id number] 1000mg Take 1 tablet by mouth in the morning and 1 tablet in the evening. Take with meals. [facility] atorvastati n 20 mg tablet 02-03 00:00: 00 08-20 00:00 :00 No [id number] 20mg Take 1 tablet by mouth at bedtime. [facility] empaglifloz in (JARDIANCE) 25 mg Tab tablet 02-03 00:00: 00 05-05 00:00 :00 No [id number] 25mg Take 1 tablet by mouth every morning. [facility] pioglitazon e 30 mg tablet 02-03 00:00: 00 05-05 00:00 :00 No [id number] 30mg Take 1 tablet by mouth in the morning. [facility] tirzepatide (MOUNJARO) 12.5 mg/0.5 mL subcutaneou s injection 02-03 00:00: 00 04-16 00:00 :00 No [id number] 12.5mg inject 12.5 mg under the skin weekly. [facility] gabapentin 600 mg tablet 02-03 00:00: 00 03-14 00:00 :00 No 600mg Take 1 tablet by mouth every morning and evening. [facility] PROMETHAZIN E 12.5 mg tablet 02-03 00:00: 00 02-26 00:00 :00 No [id number] TAKE 2 TABLETS BY MOUTH EVERY 6 HOURS NEEDED FOR NAUSEA AND VOMITING [facility] Blood-Gluco se Sensor (FREESTYLE ANTOINETTE 3 SENSOR) Lisa 02-03 00:00: 00 02-12 00:00 :00 No [id number] Use as directed every 2 weeks [facility] Blood-Gluco se Meter,Ryder blake (FREESTYLE ANTOINETTE 3 READER) [facility] 02-03 00:00: 00 02-04 04:59 :00 No [id number] 1{each} inject 1 Each under the skin once now for 1 dose. Use as directed with sensor [facility] escitalopra m oxalate 20 mg tablet 01-22 00:00: 00 08-25 00:00 :00 No [id number] 20mg Take 1 tablet by mouth in the morning. [facility] fluticasone propionate 50 mcg/actuati on nasal spray 01-22 00:00: 00 04-21 00:00 :00 No [id number] 1{spray } Use 1 Combs in each nostril in the morning. [facility] atorvastati n 20 mg tablet 01-22 00:00: 00 02-03 00:00 :00 No [id number] 20mg Take 1 tablet by mouth at bedtime. [facility] nystatin 100,000 unit/gram powder 01-14 00:00: 00 08-25 00:00 :00 No [id number] Apply to area(s) 2 (two) times daily. [facility] Zinc Oxide 10 % ointment 01-14 00:00: 00 03-24 00:00 :00 No [id number] Apply to area(s) 2 (two) times daily. [facility] MECLIZINE 25 mg tablet 01-14 00:00: 00 02-11 00:00 :00 No [id number] TAKE 1 TABLET BY MOUTH EVERY 8 HOURS NEEDED [facility] tiZANidine 4 mg tablet 01-13 00:00: 00 03-26 00:00 :00 No [id number] TAKE 1 TABLET BY MOUTH THE MORNING, AND 1 TABLET BY MOUTH IN THE AFTERNOON, AND 2 TABLETS AT BEDTIME [facility] atorvastati n 20 mg tablet 2024-0 5-15 00:00: 00 01-22 00:00 :00 No [id number] 20mg Take 1 tablet by mouth at bedtime. [facility] tirzepatide 15 mg/0.5 mL subcutaneou s injection 12-18 00:00: 00 02-03 00:00 :00 No [id number] 15mg inject 15 mg under the skin weekly. [facility] PROMETHAZIN E 12.5 mg tablet 12-03 00:00: 00 02-03 00:00 :00 No [id number] TAKE 2 TABLETS BY MOUTH EVERY 6 HOURS NEEDED FOR NAUSEA AND VOMITING [facility] MECLIZINE 25 mg tablet 12-03 00:00: 00 01-14 00:00 :00 No [id number] TAKE 1 TABLET BY MOUTH EVERY 8 HOURS NEEDED [facility] mupirocin 2 % ointment 11-11 00:00: 00 03-24 00:00 :00 No APPLY TO AFFECTED AREA FOUR TIMES A DAY [facility] ESCITALOPRA M OXALATE 20 mg tablet 11-05 00:00: 00 01-22 00:00 :00 No [id number] 20mg TAKE 1 TABLET BY MOUTH IN THE MORNING [facility] PROMETHAZIN E 12.5 mg tablet - 00:00: 00 12-03 00:00 :00 No [id number] TAKE 2 TABLETS BY MOUTH EVERY 6 HOURS NEEDED FOR NAUSEA AND VOMITING [facility] MECLIZINE 25 mg tablet - 00:00: 00 12-03 00:00 :00 No [id number] TAKE 1 TABLET BY MOUTH EVERY 8 HOURS NEEDED [facility] MECLIZINE 25 mg tablet 3-05 00:00: 00 11-05 00:00 :00 No [id number] TAKE 1 TABLET BY MOUTH EVERY 8 HOURS NEEDED [facility] insulin NPH (NOVOLIN N NPH U-100 INSULIN) 100 unit/mL injection -04 15:10: 13 10-14 00:00 :00 No [id number] inject 5 Units under the skin every morning and evening. [facility] insulin NPH (NOVOLIN N NPH U-100 INSULIN) 100 unit/mL injection 10-14 00:00: 05-05 00:00 :00 No [id number] 5U inject 5 Units under the skin every morning and evening. [facility] empaglifloz in (JARDIANCE) 25 mg Tab tablet 10-14 00:00: 00 02-03 00:00 :00 No [id number] 25mg Take 1 tablet by mouth every morning. [facility] metFORMIN 1,000 mg tablet 10-14 00:00: 02-03 00:00 :00 No [id number] 1000mg Take 1 tablet by mouth in the morning and 1 tablet in the evening. Take with meals. [facility] pioglitazon e 30 mg tablet 10-14 00:00: 02-03 00:00 :00 No [id number] 30mg Take 1 tablet by mouth in the morning. [facility] tirzepatide (MOUNJARO) 12.5 mg/0.5 mL subcutaneou s injection 10-14 00:00: 00 02-03 00:00 :00 No [id number] 12.5mg inject 12.5 mg under the skin weekly. [facility] PROMETHAZIN E 12.5 mg tablet 09-21 00:00: 11-05 00:00 :00 No [id number] TAKE 2 TABLETS BY MOUTH EVERY 6 HOURS NEEDED FOR NAUSEA AND VOMITING [facility] MECLIZINE 25 mg tablet 09-21 00:00: 10-15 00:00 :00 No [id number] TAKE 1 TABLET BY MOUTH EVERY 8 HOURS NEEDED [facility] FENTanyl PF (SUBLIMAZE (PF)) injection 09-12 20:56: 10 09-12 20:56 :10 No Slow IV Push, TITRATE - FOR PROCEDURE USE, 1 dose, Starting on Sun09/12/23 at 1456, Until Sun09/12/23 at 1456, Routine [facility] midazolam (VERSED) injection 09-12 20:46: 26 09-12 20:46 :26 No IV Push, TITRATE - FOR PROCEDURE USE, 1 dose, Starting on Sun09/12/23 at 1446, Until Sun09/12/23 at 1446, Routine [facility] FENTanyl PF (SUBLIMAZE (PF)) injection 09-12 20:40: 07 09-12 20:40 :07 No Slow IV Push, TITRATE - FOR PROCEDURE USE, 1 dose, Starting on Sun09/12/23 at 1440, Until Sun09/12/23 at 1440, Routine [facility] FENTanyl PF (SUBLIMAZE (PF)) injection 09-12 20:34: 23 09-12 20:34 :23 No Slow IV Push, TITRATE - FOR PROCEDURE USE, 1 dose, Starting on Sun09/12/23 at 1434, Until Sun09/12/23 at 1434, Routine [facility] lidocaine 1% (PF) (XYLOCAINE) injection 10 mL 09-12 20:30: 00 09-12 20:34 :00 No [id number] 10mL [facility] triamcinolo ne acetonide (KENALOG) injection 80 mg 09-12 20:30: 00 09-12 20:35 :00 No [id number] 80mg [facility] sodium bicarbonate 1 mEq/mL (8.4 %) injection 1 mL 09-12 20:30: 00 09-12 20:34 :00 No [id number] 1mL [facility] bupivacaine (preserv free) (SENSORCAIN E MPF) 0.25 % (2.5 mg/mL) injection 4 mL 09-12 20:30: 00 09-12 20:33 :00 No [id number] 4mL [facility] iohexoL (OMNIPAQUE 300-50 mL)) injection 1 mL 09-12 20:30: 00 09-12 20:33 :00 No [id number] 1mL [facility] midazolam (VERSED) injection 09-12 20:29: 00 09-12 20:29 :00 No IV Push, TITRATE - FOR PROCEDURE USE, 1 dose, Starting on Sun09/12/23 at 1429, Until Sun09/12/23 at 1429, Routine [facility] lactated ringers IV infusion 500 mL 09-12 20:15: 00 09-12 20:25 :00 No [id number] 500mL [facility] celecoxib 100 mg capsule 08-24 00:00: 00 03-14 00:00 :00 No [id number] TAKE 1 CAPSULE BY MOUTH IN THE MORNING AND 1 IN THE EVENING WITH MEALS [facility] PROMETHAZIN E 12.5 mg tablet 08-24 00:00: 00 09-21 00:00 :00 No [id number] TAKE 2 TABLETS BY MOUTH EVERY 6 HOURS NEEDED FOR NAUSEA AND VOMITING [facility] PROMETHAZIN E 12.5 mg tablet 2022-08 00:00: 00 Yes [id number] TAKE 2 TABLETS BY MOUTH EVERY 6 HOURS NEEDED FOR NAUSEA AND VOMITING [facility] tirzepatide (MOUNJARO) 10 mg/0.5 mL PnIj 2022-08 00:00: 00 10-14 00:00 :00 No [id number] 10mg inject 10 mg under the skin weekly. [facility] glyBURIDE 5 mg tablet 2022-08-16 00:00: 00 10-14 00:00 :00 No [id number] TAKE 1 TABLET BY MOUTH TWICE DAILY . APPOINTMEN T REQUIRED FOR FUTURE REFILLS [facility] PROMETHAZIN E 12.5 mg tablet 2022-08-14 00:00: 00 08-09 00:00 :00 No [id number] TAKE 2 TABLETS BY MOUTH EVERY 6 HOURS NEEDED FOR NAUSEA AND VOMITING [facility] GABAPENTIN 600 mg tablet 2022-08 00:00: 00 02-03 00:00 :00 No [id number] 600mg TAKE 1 TABLET BY MOUTH IN THE MORNING AND 1 IN THE EVENING [facility] empaglifloz in (JARDIANCE) 25 mg Tab 2022-08 030 00:00: 00 10-14 00:00 :00 No [id number] 25mg Take 1 tablet by mouth every morning. [facility] metFORMIN 1,000 mg tablet 2022-08 00:00: 10-14 00:00 :00 No [id number] 1000mg Take 1 tablet by mouth in the morning and 1 tablet in the evening. Take with meals. [facility] pioglitazon e 30 mg tablet 2022-08 00:00: 00 10-14 00:00 :00 No [id number] 30mg Take 1 tablet by mouth in the morning. [facility] tirzepatide (MOUNJARO) 10 mg/0.5 mL PnIj 2022-0830 00:00: 00 07-20 00:00 :00 No [id number] 10mg inject 10 mg under the skin weekly. [facility] atorvastati n 20 mg tablet 2022-08 0 00:00: 00 12-25 00:00 :00 No [id number] 20mg Take 1 tablet by mouth at bedtime. [facility] meclizine 25 mg tablet 2022-08 0-25 00:00: 00 09-21 00:00 :00 No [id number] TAKE 1 TABLET BY MOUTH EVERY 8 HOURS NEEDED [facility] PROMETHAZIN E 12.5 mg tablet 2022-08 0-20 00:00: 00 06-26 00:00 :00 No [id number] TAKE 2 TABLETS BY MOUTH EVERY 6 HOURS NEEDED FOR NAUSEA AND VOMITING [facility] lidocaine 1% (PF) (XYLOCAINE) injection 10 mL 05-11 19:45: 00 05-11 18:46 :00 No [id number] 10mL [facility] bupivacaine (preserv free) (SENSORCAIN E MPF) 0.25 % (2.5 mg/mL) injection 4 mL 05-11 19:45: 00 05-11 18:46 :00 No [id number] 4mL [facility] triamcinolo ne acetonide (KENALOG) injection 40 mg 05-11 19:30: 00 05-11 18:47 :00 No [id number] 40mg [facility] FENTanyl PF (SUBLIMAZE (PF)) injection 05-11 18:56: 34 05-11 18:56 :34 No Slow IV Push, TITRATE - FOR PROCEDURE USE, 1 dose, Starting on Sun05/11/23 at 1356, Until Sun05/11/23 at 1356, Routine [facility] FENTanyl PF (SUBLIMAZE (PF)) injection 05-11 18:45: 00 05-11 18:45 :00 No Slow IV Push, TITRATE - FOR PROCEDURE USE, 1 dose, Starting on Sun05/11/23 at 1345, Until Sun05/11/23 at 1345, Routine [facility] FENTanyl PF (SUBLIMAZE (PF)) injection 05-11 18:43: 00 05-11 18:43 :00 No Slow IV Push, TITRATE - FOR PROCEDURE USE, 1 dose, Starting on Sun05/11/23 at 1343, Until Sun05/11/23 at 1343, Routine [facility] midazolam (VERSED) injection 05-11 18:38: 00 05-11 18:38 :00 No IV Push, TITRATE - FOR PROCEDURE USE, 1 dose, Starting on Sun05/11/23 at 1338, Until Sun05/11/23 at 1338, Routine [facility] ondansetron (ZOFRAN (PF)) injection 05-11 18:37: 00 05-11 18:37 :00 No TITRATE - FOR PROCEDURE USE, 1 dose, Starting on Sun05/11/23 at 1337, Until Sun05/11/23 at 1337, Routine [facility] lactated ringers IV infusion 500 mL 05-11 18:15: 00 05-11 18:15 :00 No [id number] 500mL [facility] fluconazole 200 mg tablet 05-08 00:00: 00 03-24 00:00 :00 No [id number] 200mg Take 1 tablet by mouth every 3 (three) days. [facility] ampicillin 500 mg capsule 05-08 00:00: 05-16 04:59 :00 No [id number] 500mg Take 1 capsule by mouth every 6 (six) hours for 7 days. [facility] glyBURIDE 5 mg tablet 05-07 00:00: 00 06-11 00:00 :00 No [id number] TAKE 1 TABLET BY MOUTH TWICE DAILY . APPOINTMEN T REQUIRED FOR FUTURE REFILLS [facility] NOVOLIN N NPH U-100 INSULIN 100 unit/mL injection 05-03 00:00: 00 10-14 00:00 :00 No [id number] INJECT 10 UNITS UNDER THE SKIN IN THE MORNING. INJECT ONLY IF FASTING BLOOD SUGAR GREATER THAN 150 [facility] PROMETHAZIN E 12.5 mg tablet 04-10 00:00: 00 06-01 00:00 :00 No [id number] TAKE 2 TABLETS BY MOUTH EVERY 6 HOURS NEEDED FOR NAUSEA AND VOMITING [facility] lactated ringers IV infusion 1,000 mL 04-09 14:45: 00 Yes 1000mL at 100 mL/hr, 1,000 mL, IV Infusion, CONTINUOUS , Starting on Sun04/09/23 at 0945, Until Discontinu ed, Routine, PACU [facility] ondansetron (ZOFRAN (PF)) injection 4 mg 04-09 14:30: 37 Yes 4mg 4 mg, Slow IV Push, PRN, 1 dose, Starting on Sun04/09/23 at 0930, Until Discontinu ed, Routine, Nausea and Vomiting (N/V), PACU [facility] lactated ringers IV infusion 04-09 13:54: 00 04-09 14:16 :45 No IV Infusion, CONTINUOUS PRN, Starting on Sun04/09/23 at 0854, Until Sun04/09/23 at 0916, Routine, Intra-op [facility] propofoL IV infusion 04-09 13:54: 00 04-09 14:16 :45 No IV Infusion, ONCE INTRA PROCEDURE, Starting on Sun04/09/23 at 0854, Until Sun04/09/23 at 0916, Routine, Intra-op [facility] lidocaine 2% (XYLOCAINE) 20 mg/mL (2 %) injection 04-09 13:54: 00 04-09 14:16 :45 No Intravenou s, ONCE INTRA PROCEDURE, Starting on Sun04/09/23 at 0854, Until Sun04/09/23 at 0916, Routine, Intra-op [facility] midazolam (VERSED) injection 04-09 13:54: 00 04-09 14:16 :45 No IV Push, ONCE INTRA PROCEDURE, Starting on Sun04/09/23 at 0854, Until Sun04/09/23 at 09, Routine, Intra-op [facility] lactated ringers IV infusion 1,000 mL 04-09 12:45: 00 04-09 13:04 :00 No 1000mL at 42 mL/hr, 1,000 mL, IV Infusion, ONCE, 1 dose, On Sun04/09/23 at 0745, Routine, Endo Pre-op [facility] semaglutide (OZEMPIC) 2 mg/dose (8 mg/3 mL) PnIj 04-03 00:00: 00 06-11 00:00 :00 No [id number] INJECT TWO (2) MG UNDER THE SKIN ONCE WEEKLY. [facility] NOVOLIN N NPH U-100 INSULIN 100 unit/mL injection 03-27 00:00: 00 05-03 00:00 :00 No [id number] INJECT 10 UNITS UNDER THE SKIN IN THE MORNING. INJECT ONLY IF FASTING BLOOD SUGAR GREATER THAN 150 [facility] JARDIANCE 25 mg Tab 03-14 00:00: 06-11 00:00 :00 No [id number] TAKE 1 TABLET BY MOUTH ONCE DAILY IN THE MORNING [facility] metformin ER 500 mg 24 hr tablet 03-14 00:00: 00 06-11 00:00 :00 No [id number] TAKE 2 TABLETS BY MOUTH IN THE MORNING AND TAKE 3 TABLETS IN THE EVENING( NEEDS APPOINTMEN T) [facility] gabapentin 800 mg tablet 03-13 00:00: 00 03-14 00:00 :00 No [id number] 800mg Take 1 tablet by mouth at bedtime. [facility] Miscellaneo us Medical Supply Kit 03-13 00:00: 00 02-06 00:00 :00 No [id number] Use as directed [facility] tiZANidine 4 mg tablet 03-13 00:00: 00 01-13 00:00 :00 No [id number] Take 1 tablet morning and afternoon, 2 tablets at bedtime [facility] celecoxib 100 mg capsule 03-13 00:00: 00 08-24 00:00 :00 No [id number] 100mg Take 1 capsule by mouth in the morning and 1 capsule in the evening. Take with meals. [facility] gabapentin 600 mg tablet 03-13 00:00: 00 06-15 00:00 :00 No [id number] 600mg Take 1 tablet by mouth in the morning and 1 tablet in the evening. [facility] NuvaRing 0.12-0.015 mg/24 hr vaginal insert 03-08 00:00: 00 09-10 00:00 :00 No [id number] 1{each} Insert 1 Each into vagina once every month. Insert vaginally and leave in place for 3 consecutiv e weeks, then remove for 1 week. [facility] escitalopra m oxalate (LEXAPRO) 20 mg tablet 03-06 00:00: 00 11-05 00:00 :00 No [id number] 20mg Take 1 tablet by mouth in the morning. [facility] meclizine 25 mg tablet 03-06 00:00: 06-06 00:00 :00 No [id number] TAKE 1 TABLET BY MOUTH EVERY 8 HOURS NEEDED [facility] atorvastati n 20 mg tablet 03-06 00:00: 06-06 00:00 :00 No [id number] 20mg Take 1 tablet by mouth at bedtime. [facility] proMETHazin e 12.5 mg tablet 03-06 00:00: 00 04-10 00:00 :00 No [id number] TAKE 2 TABLETS BY MOUTH EVERY 6 HOURS NEEDED FOR NAUSEA AND VOMITING [facility] semaglutide (OZEMPIC) 2 mg/dose (8 mg/3 mL) Ij 03-06 00:00: 04-03 00:00 :00 No [id number] INJECT 2 MG UNDER THE SKIN WEEKLY [facility] OZEMPIC 2 mg/dose (8 mg/3 mL) PnIj 02-27 00:00: 03-06 00:00 :00 No [id number] INJECT 2 MG UNDER THE SKIN WEEKLY [facility] NuvaRing 0.12-0.015 mg/24 hr vaginal insert 02-05 00:00: 00 03-08 00:00 :00 No [id number] 1{each} Insert 1 Each into vagina once every month. Insert vaginally and leave in place for 3 consecutiv e weeks, then remove for 1 week. [facility] tiZANidine 4 mg tablet 01-31 00:00: 00 03-13 00:00 :00 No [id number] 9100 Take 1 tablet by mouth three times daily as needed for muscle spasm [facility] gabapentin 600 mg tablet 620 00:00: 00 03-13 00:00 :00 No [id number] 600mg Take 1 tablet by mouth in the morning and 1 tablet at noon and 1 tablet in the evening. [facility] insulin NPH (NOVOLIN N NPH U-100 INSULIN) 100 unit/mL injection 01-27 00:00: 00 Yes [id number] 10U inject 10 Units under the skin in the morning. Inject only if fasting BG >150 [facility] glyBURIDE 5 mg tablet 01-25 00:00: 00 05-07 00:00 :00 No [id number] TAKE 1 TABLET BY MOUTH TWICE DAILY (NEEDS FOLLOW UP VISIT FOR FURTHER REFILLS [facility] PROMETHAZIN E 12.5 mg tablet 01-25 00:00: 00 03-06 00:00 :00 No [id number] TAKE 2 TABLETS BY MOUTH EVERY 6 HOURS NEEDED FOR NAUSEA AND VOMITING [facility] lidocaine HCL (ASPERCREME , LIDOCAINE HCL,) 4 % Crea 01-19 00:00: 00 02-06 00:00 :00 No [id number] 1{each} Apply 1 Each to area(s) in the morning and 1 Each in the evening. [facility] pantoprazol e 40 mg EC tablet 01-01 00:00: 00 03-24 00:00 :00 No [id number] 40mg Take 1 tablet by mouth in the morning. [facility] OZEMPIC 2 mg/dose (8 mg/3 mL) PnIj 12-27 00:00: 00 02-27 00:00 :00 No INJECT 2 MG UNDER THE SKIN WEEKLY [facility] metformin ER 500 mg 24 hr tablet 12-26 00:00: 00 01-19 00:00 :00 No TAKE 2 TABLETS BY MOUTH IN THE MORNING AND TAKE 3 TABLETS IN THE EVENING( NEEDS APPOINTMEN T) [facility] JARDIANCE 25 mg Tab 12-12 00:00: 00 03-14 00:00 :00 No [id number] TAKE 1 TABLET BY MOUTH ONCE DAILY IN THE MORNING [facility] meloxicam 15 mg tablet 12-12 00:00: 00 03-13 00:00 :00 No [id number] 15mg Take 1 tablet by mouth in the morning. [facility] triamcinolo ne acetonide (KENALOG) injection 80 mg 12-11 17:00: 00 12-11 15:56 :00 No [id number] 80mg [facility] sodium bicarbonate 1 mEq/mL (8.4 %) injection 0.5 mL 12-11 17:00: 00 12-11 15:55 :00 No [id number] .5mL [facility] lidocaine 1% (PF) (XYLOCAINE) injection 10 mL 12-11 17:00: 00 12-11 15:55 :00 No [id number] 10mL [facility] NaCl 0.9% (NS) injection 10 mL 12-11 16:45: 00 12-11 15:55 :00 No [id number] 10mL [facility] NaCl 0.9% (NS) IV infusion 250 mL 12-11 15:30: 00 12-11 15:11 :00 No [id number] 250mL [facility] meclizine 25 mg tablet 12-07 00:00: 00 03-06 00:00 :00 No [id number] TAKE 1 TABLET BY MOUTH EVERY 8 HOURS NEEDED [facility] ONDANSETRON HCL ORAL 11-29 11:48: 30 11-29 00:00 :00 No Take by mouth. [facility] fluticasone propionate 50 mcg/actuati on nasal spray -19 00:00: 00 01-22 00:00 :00 No [id number] 1{spray } Use 1 Combs in each nostril in the morning. [facility] proMETHazin e 12.5 mg tablet 3-28 00:00: 00 01-25 00:00 :00 No [id number] 25mg Take 2 tablets by mouth every 6 (six) hours as needed for Nausea and Vomiting (N/V). [facility] semaglutide (OZEMPIC) 1 mg/dose (4 mg/3 mL) PnIj 10-30 00:00: 00 01-19 00:00 :00 No [id number] 1mg inject 1 mg under the skin weekly. [facility] albuterol 90 mcg/actuati on inhaler 10-26 00:00: 00 07-24 00:00 :00 No [id number] 2{puff} Inhale 2 Puffs every 6 (six) hours as needed for Wheezing or Shortness of Breath. [facility] glyBURIDE 5 mg tablet 10-26 00:00: 00 01-24 00:00 :00 No [id number] TAKE 1 TABLET BY MOUTH TWICE DAILY (NEEDS FOLLOW UP VISIT FOR FURTHER REFILLS [facility] gabapentin 600 mg tablet 10-24 00:00: 00 01-30 00:00 :00 No [id number] 600mg Take 1 tablet by mouth in the morning and 1 tablet at noon and 1 tablet in the evening. [facility] Butalbital- Acetaminoph en-Caff 50-300-40 mg per capsule - 00:00: 00 03-24 00:00 :00 No TAKE 1 CAPSULE BY MOUTH EVERY 6 HOURS NEEDED [facility] ondansetron 4 mg tablet 2- 00:00: 00 03-24 00:00 :00 No TAKE 1 TABLET BY MOUTH EVERY 12 HOURS NEEDED [facility] meclizine 25 mg tablet 2- 00:00: 00 12-07 00:00 :00 No TAKE 1 TABLET BY MOUTH EVERY 8 HOURS NEEDED [facility] escitalopra m oxalate (LEXAPRO) 20 mg tablet 2- 00:00: 00 03-06 00:00 :00 No [id number] 20mg Take 1 tablet by mouth in the morning. [facility] tiZANidine 4 mg tablet 2-20 00:00: 00 01-31 00:00 :00 No [id number] 9100 4mg Take 1 tablet by mouth 3 (three) times daily as needed (muscle spasm). [facility] atorvastati n 20 mg tablet 2 00:00: 00 03-06 00:00 :00 No [id number] 20mg Take 1 tablet by mouth at bedtime. [facility] busPIRone 5 mg tablet 09-21 00:00: 00 11-10 00:00 :00 No [id number] 5mg Take 1 tablet by mouth 2 (two) times daily as needed (anxiety). [facility] bupivacaine (preserv free) (SENSORCAIN E MPF) 0.25 % (2.5 mg/mL) injection 4 mL 09-15 17:15: 00 09-15 17:19 :00 No [id number] 4mL [facility] lidocaine 1% (PF) (XYLOCAINE) injection 14 mL 09-15 17:15: 00 09-15 17:06 :00 No [id number] 14mL [facility] triamcinolo ne acetonide (KENALOG) injection 80 mg 09-15 17:15: 00 09-15 17:12 :00 No [id number] 80mg [facility] lactated ringers IV infusion 500 mL 09-15 16:45: 00 09-15 17:06 :00 No [id number] 500mL [facility] meloxicam 15 mg tablet 2 00:00: 00 10-26 00:00 :00 No [id number] 15mg Take 1 tablet by mouth in the morning. [facility] pioglitazon e 30 mg tablet 2 00:00: 00 06-11 00:00 :00 No [id number] 30mg Take 1 tablet by mouth in the morning. [facility] metFORMIN 1,000 mg tablet 2-01 00:00: 00 06-11 00:00 :00 No [id number] 1000mg Take 1 tablet by mouth in the morning and 1 tablet in the evening. Take with meals. [facility] semaglutide (OZEMPIC) 1 mg/dose (4 mg/3 mL) PnIj 2- 00:00: 00 10-26 00:00 :00 No [id number] 1mg inject 1 mg under the skin weekly. [facility] tirzepatide (MOUNJARO) 2.5 mg/0.5 mL PnIj 2- 00:00: 00 09-13 00:00 :00 No [id number] 2.5mg inject 2.5 mg under the skin weekly. [facility] ONDANSETRON HCL ORAL 09-12 09:40: 30 Yes Take by mouth. [facility] LORazepam (ATIVAN) tablet 1 mg -04 20:15: 00 08-16 19:20 :00 No [id number] 1mg 1 mg, Oral, ONCE, 1 dose, On Sun08/16/22 at 1415, Routine [facility] JARDIANCE 25 mg Tab 1-04 00:00: 00 12-12 00:00 :00 No [id number] TAKE 1 TABLET BY MOUTH ONCE DAILY IN THE MORNING [facility] PROMETHAZIN E 12.5 mg tablet 1- 00:00: 00 11-07 00:00 :00 No [id number] TAKE 2 TABLETS BY MOUTH EVERY 6 HOURS NEEDED FOR VERTIGO [facility] HYDROXYZINE 25 mg tablet 1-04 00:00: 00 09-21 00:00 :00 No [id number] TAKE 1 TABLET BY MOUTH EVERY 8 HOURS NEEDED FOR ITCHING [facility] fluconazole 200 mg tablet 2021-08 2-08 00:00: 00 12-28 00:00 :00 No [id number] 200mg Take 1 tablet by mouth in the morning. [facility] terconazole 0.4 % vaginal cream 2021-08 2-07 00:00: 00 08-02 00:00 :00 No [id number] 1{appli cator} Insert 1 Applicator into vagina at bedtime. [facility] NuvaRing 0.12-0.015 mg/24 hr vaginal insert 2021-08 00:00: 00 02-05 00:00 :00 No [id number] 1{each} Insert 1 Each into vagina once every month. Insert vaginally and leave in place for 3 consecutiv e weeks, then remove for 1 week. [facility] lactated ringers IV infusion 500 mL 2021-08 21:45: 00 06-30 20:39 :00 No [id number] 500mL [facility] lidocaine 1% (PF) (XYLOCAINE) injection 10 mL 2021-08 20:37: 00 06-30 20:37 :00 No [id number] 10mL [facility] triamcinolo ne acetonide (KENALOG) injection 80 mg 2021-08 20:37: 00 06-30 20:38 :00 No [id number] 80mg [facility] bupivacaine (preserv free) (SENSORCAIN E MPF) 0.25 % (2.5 mg/mL) injection 4 mL 2021-08 20:36: 00 06-30 20:38 :00 No [id number] 4mL [facility] HYDROXYZINE 25 mg tablet 2021-08 00:00: 00 08-16 00:00 :00 No [id number] TAKE 1 TABLET BY MOUTH EVERY 8 HOURS NEEDED FOR ITCHING [facility] PROMETHAZIN E 12.5 mg tablet 2021-08 00:00: 00 07-17 00:00 :00 No [id number] TAKE 1 TABLET BY MOUTH ONCE DAILY NEEDED FOR NAUSEA AND VOMITING [facility] proMETHazin e 12.5 mg tablet 2021-08 0-10 00:00: 00 06-28 00:00 :00 No [id number] 12.5mg Take 1 tablet by mouth once daily as needed for Nausea and Vomiting (N/V). [facility] gabapentin 400 mg capsule 2021-08 0 00:00: 00 10-24 00:00 :00 No [id number] 9100 400mg Take 1 capsule by mouth in the morning and 1 capsule at noon and 1 capsule in the evening. [facility] tiZANidine 4 mg tablet 2021-08 0 00:00: 00 10-01 00:00 :00 No [id number] 9100 4mg Take 1 tablet by mouth 3 (three) times daily as needed (muscle spasm). [facility] meloxicam 15 mg tablet 2021-08 00:00: 00 09-15 00:00 :00 No [id number] 15mg Take 1 tablet by mouth in the morning. [facility] metformin ER 500 mg 24 hr tablet 04-21 00:00: 00 09-13 00:00 :00 No [id number] TAKE 2 TABLETS BY MOUTH ONCE DAILY IN THE MORNING AND 3 ONCE DAILY IN THE EVENING. [facility] dulaglutide (TRULICITY) 0.75 mg/0.5 mL PnIj 04-21 00:00: 00 09-13 00:00 :00 No [id number] .75mg inject 1 Pen under the skin weekly. [facility] hydrOXYzine 25 mg tablet 04-21 00:00: 00 06-28 00:00 :00 No [id number] 25mg Take 1 tablet by mouth every 8 (eight) hours as needed for Itching. [facility] insulin NPH (NOVOLIN N NPH U-100 INSULIN) 100 unit/mL injection 04-18 00:00: 00 09-13 00:00 :00 No [id number] INJECT 20 UNITS SUBCUTANEO USLY ONCE DAILY WITH BREAKFAST [facility] insulin regular human (NOVOLIN R REGULAR U-100 INSULN) 100 unit/mL injection 04-18 00:00: 00 09-13 00:00 :00 No [id number] INJECT 15 UNITS SUBCUTANEO USLY THREE TIMES DAILY BEFORE MEAL(S) [facility] ondansetron 4 mg disintegrat ing tablet 04-18 00:00: 07-17 00:00 :00 No [id number] DISSOLVE 1 TABLET IN MOUTH EVERY 8 HOURS NEEDED FOR NAUSEA AND VOMITING FOR UP TO 4 DAYS [facility] gabapentin 400 mg capsule 04-18 00:00: 05-16 00:00 :00 No [id number] 9100 400mg Take 1 capsule by mouth in the morning and 1 capsule at noon and 1 capsule in the evening. [facility] PROMETHAZIN E 12.5 mg tablet 03-27 00:00: 00 05-22 00:00 :00 No [id number] TAKE 2 TABLETS BY MOUTH EVERY 6 HOURS NEEDED FOR VERTIGO [facility] glyBURIDE 5 mg tablet 01-16 00:00: 00 10-26 00:00 :00 No [id number] TAKE 1 TABLET BY MOUTH TWICE DAILY WITH MEALS (NEEDS FOLLOW UP VISIT FOR FURTHER REFILLS) [facility] escitalopra m oxalate (LEXAPRO) 20 mg tablet 01-16 00:00: 00 10-03 00:00 :00 No [id number] 20mg Take 1 tablet by mouth daily. [facility] atorvastati n 20 mg tablet 01-16 00:00: 00 09-21 00:00 :00 No [id number] 20mg Take 1 tablet by mouth at bedtime. [facility] empaglifloz in (JARDIANCE) 25 mg Tab 01-16 00:00: 00 08-16 00:00 :00 No [id number] 25mg Take 1 tablet by mouth every morning. [facility] NUVARING (NUVARING) 0.12-0.015 mg/24 hr vaginal insert 01-16 00:00: 00 07-04 00:00 :00 No [id number] 1{each} Insert 1 Each into vagina once every month. Insert vaginally and leave in place for 3 consecutiv e weeks, then remove for 1 week. [facility] MELOXICAM 15 mg tablet 5-25 00:00: 00 05-16 00:00 :00 No [id number] Take 1 tablet by mouth once daily [facility] GLYBURIDE 5 mg tablet 5-25 00:00: 00 01-16 00:00 :00 No [id number] TAKE 1 TABLET BY MOUTH TWICE DAILY WITH MEALS (NEEDS FOLLOW UP VISIT FOR FURTHER REFILLS) [facility] HYDROXYZINE 25 mg tablet 5-25 00:00: 01-11 00:00 :00 No [id number] TAKE 1 TABLET BY MOUTH EVERY 8 HOURS NEEDED FOR ANXIETY [facility] semaglutide (OZEMPIC) 1 mg/dose (2 mg/1.5 mL) PnIj 4-19 00:00: 00 01-16 00:00 :00 No [id number] 1mg inject 1 mg under the skin weekly. [facility] tiZANidine 4 mg tablet 4-12 00:00: 00 05-16 00:00 :00 No 4mg Take 1 tablet by mouth 3 (three) times daily as needed (muscle spasm). [facility] oxyCODONE 5 mg immediate release tablet 4-12 00:00: 00 04-18 00:00 :00 No [id number] 5mg Take 1 tablet by mouth every 6 (six) hours as needed for Pain (scale 7-10). Indication s: acute pain [facility] PROMETHAZIN E 12.5 mg tablet 3-14 00:00: 00 01-16 00:00 :00 No [id number] TAKE 2 TABLETS BY MOUTH EVERY 6 HOURS NEEDED FOR VERTIGO [facility] ONDANSETRON 4 mg disintegrat ing tablet 2-15 00:00: 00 04-18 00:00 :00 No [id number] DISSOLVE 1 TABLET IN MOUTH EVERY 8 HOURS NEEDED FOR NAUSEA AND VOMITING FOR UP TO 4 DAYS [facility] insulin NPH (NOVOLIN N NPH U-100 INSULIN) 100 unit/mL injection 09-06 00:00: 00 04-18 00:00 :00 No [id number] INJECT 20 UNITS SUBCUTANEO USLY ONCE DAILY WITH BREAKFAST [facility] escitalopra m oxalate (LEXAPRO) 20 mg tablet 09-06 00:00: 00 01-16 00:00 :00 No [id number] 20mg Take 1 tablet by mouth daily. [facility] NOVOLIN R REGULAR U-100 INSULN 100 unit/mL solution 09-02 00:00: 00 04-18 00:00 :00 No [id number] INJECT 15 UNITS SUBCUTANEO USLY THREE TIMES DAILY BEFORE MEAL(S) [facility] MONTELUKAST 10 mg tablet 08-15 00:00: 00 07-17 00:00 :00 No [id number] Take 1 tablet by mouth once daily [facility] NUVARING (NUVARING) 0.12-0.015 mg/24 hr vaginal insert 2020-08 00:00: 00 01-16 00:00 :00 No [id number] 1{each} Insert 1 Each into vagina once every month. Insert vaginally and leave in place for 3 consecutiv e weeks, then remove for 1 week. [facility] metformin ER 500 mg 24 hr tablet 2020-08 00:00: 00 01-16 00:00 :00 No [id number] TAKE 2 TABLETS BY MOUTH ONCE DAILY IN THE MORNING AND 3 ONCE DAILY IN THE EVENING. Needs follow up visit for further refills [facility] atorvastati n 20 mg tablet 2020-08 00:00: 00 01-16 00:00 :00 No [id number] 20mg Take 1 tablet by mouth at bedtime. [facility] Guaifenesin 200 mg/5 mL Liqd 2020-08 00:00: 00 07-17 00:00 :00 No [id number] 5 ml po q 6 h prn cough [facility] mupirocin 2 % ointment 2020-08 0 00:00: 07-17 00:00 :00 No [id number] Apply to area(s) 3 (three) times daily. [facility] empaglifloz in (JARDIANCE) 9-13 00:00: 00 01-16 00:00 :00 No [id number] 10mg Take 1 tablet by mouth daily. [facility] albuterol 90 mcg/actuati on inhaler -07 00:00: 00 11-29 00:00 :00 No [id number] 2{puff} Inhale 2 Puffs every 6 (six) hours as needed for Wheezing or Shortness of Breath. [facility] hydrOXYzine 25 mg tablet 01-13 00:00: 00 06-02 00:00 :00 No [id number] 25mg Take 1 tablet by mouth every 6 (six) hours. TAKE 1-2 TABS PO Q6 HOURS PRN FOR ANXIETY [facility] metformin ER 500 mg 24 hr tablet 01-04 00:00: 00 06-27 00:00 :00 No [id number] TAKE 2 TABLETS BY MOUTH ONCE DAILY IN THE MORNING AND 3 ONCE DAILY IN THE EVENING. Needs follow up visit for further refills [facility] atorvastati n 20 mg tablet 01-04 00:00: 00 06-27 00:00 :00 No [id number] 20mg Take 1 tablet by mouth at bedtime. [facility] ondansetron (ZOFRAN ODT) 4 mg disintegrat ing tablet 20 00:00: 00 09-27 00:00 :00 No [id number] 4mg Take 1 tablet by mouth every 8 (eight) hours as needed for Nausea and Vomiting (N/V) for up to 4 days. [facility] hydrocortis one-pramovi ne rectal foam 12-13 00:00: 00 07-17 00:00 :00 No [id number] 1{appli cator} Insert 1 Applicator into rectum 2 (two) times daily. [facility] insulin NPH (NOVOLIN N NPH U-100 INSULIN) 100 unit/mL injection 10-13 00:00: 00 09-06 00:00 :00 No [id number] INJECT 20 UNITS SUBCUTANEO USLY ONCE DAILY WITH BREAKFAST [facility] insulin regular human (NOVOLIN R REGULAR U-100 INSULN) 100 unit/mL injection 10-13 00:00: 00 09-02 00:00 :00 No [id number] 15U inject 15 Units under the skin 3 (three) times daily before meals. [facility] glyBURIDE 5 mg tablet 10-13 00:00: 00 06-27 00:00 :00 No [id number] 5mg Take 1 tablet by mouth 2 (two) times daily with meals. Needs follow up visit for further refills [facility] Insulin Syringe-Nee dle U-100 1 mL 31 gauge x 5/16 Syrg 2019-08 00:00: 00 07-17 00:00 :00 No Use as directed [facility] Insulin Syringe-Nee dle U-100 1 mL 31 gauge x 5/16 Syrg 2019-08 00:00: 00 07-17 00:00 :00 No Use as directed [facility] hydrocortis one (ANUSOL-HC) 25 mg suppository 2019-08 00:00: 00 06-14 05:59 :00 No [id number] 25mg Insert 1 Suppositor y into rectum 2 (two) times daily for 10 days. [facility] escitalopra m oxalate (LEXAPRO) 5 mg tablet 2019-08 00:00: 00 12-31 00:00 :00 No [id number] 5mg Take 1 tablet by mouth daily. [facility] metformin ER 500 mg 24 hr tablet 2019-08 00:00: 00 10-13 00:00 :00 No [id number] TAKE 2 TABLETS BY MOUTH ONCE DAILY IN THE MORNING AND 3 ONCE DAILY IN THE EVENING. Needs follow up visit for further refills [facility] glyBURIDE 5 mg tablet 2019-08 00:06-22 00:00 :00 No [id number] 5mg Take 1 tablet by mouth 2 (two) times daily with meals. Needs follow up visit for further refills [facility] insulin NPH (NOVOLIN N NPH U-100 INSULIN) 100 unit/mL injection 2019-08 00:00: 06-22 00:00 :00 No [id number] USE 10 UNITS UNDER THE SUBCUTANEO USLY DAILY WITH BREAKFAST [facility] insulin regular human (NOVOLIN R REGULAR U-100 INSULN) 100 unit/mL injection 2019-08 00:00: 06-22 00:00 :00 No [id number] INJECT 10 UNITS SUBCUTANEO USLY WITH BREAKFAST [facility] hydrOXYzine 25 mg tablet 2019-08 00:06-22 00:00 :00 No [id number] 25mg Take 1 tablet by mouth every 6 (six) hours. TAKE 1-2 TABS PO Q6 HOURS PRN FOR ANXIETY [facility] ondansetron 8 mg disintegrat ing tablet 05-09 00:0007-13 00:00 :00 No [id number] 8mg Take 1 tablet by mouth every 8 (eight) hours as needed for Nausea and Vomiting (N/V). [facility] hydrocortis one 2.5 % rectal cream 05-09 00:0007-13 00:00 :00 No [id number] Insert into rectum 2 (two) times daily. [facility] diphenoxyla te-atropine 2.5-0.025 mg tablet 05-09 00:07-13 00:00 :00 No [id number] 1{tbl} Take 1 tablet by mouth every 6 (six) hours as needed (diarrhea) . [facility] sulindac 200 mg tablet 2-04 00:07-13 00:00 :00 No [id number] 200mg Take 1 tablet by mouth 2 (two) times daily. [facility] bromphenira mine-pseudo ephedrine-D M (BROMFED DM) 2-30-10 mg/5 mL syrup 1 00:00: 00 07-13 00:00 :00 No [id number] 5mL Take 5 mL by mouth 4 (four) times daily as needed for Congestion /Allergies or Cold symptoms. [facility] diclofenac 50 mg tablet 08-14 00:00: 07-13 00:00 :00 No [id number] 50mg Take 1 tablet by mouth 3 (three) times daily. [facility] proMETHazin e 25 mg tablet 2018-08 00:00: 00 07-13 00:00 :00 No [id number] 25mg Take 1 tablet by mouth every 6 (six) hours as needed for Nausea and Vomiting (N/V). [facility] albuterol 90 mcg/actuati on inhaler 2017-08 00:00: 00 07-13 00:00 :00 No 2{puff} Inhale 2 Puffs every 4 (four) hours as needed for Wheezing or Shortness of Breath. [facility] fluticasone 50 mcg/actuati on nasal spray 2017-08 00:00: 00 07-13 00:00 :00 No 1{spray } Use 1 Combs in each nostril daily. [facility] ibuprofen 800 mg tablet 2017-08 00:00: 00 07-13 00:00 :00 No 800mg Take 1 tablet by mouth every 6 (six) hours as needed for Pain (scale 4-6). [facility] Breast Pump Lisa 04-13 00:00: 00 07-13 00:00 :00 No Use as directed [facility] blood sugar diagnostic (ONETOUCH ULTRA TEST) strip 8-22 00:00: 00 07-13 00:00 :00 No Please, dispense test strips for checking FS x8 times per day [facility] Blood Pressure Monitor (BLOOD PRESSURE KIT) Kit 8-15 00:00: 00 07-13 00:00 :00 No [id number] Use as directed [facility] Lancets ([facility]: 00 07-13 00:00 :00 No Use as directed [facility] Immunizations Ordered Immunization Name Filled Immunization Name Date Status Comments Source Flu Injectable MDCK Pres-Free (FLUCELVAX) 2024-04-21 00:00:00 Completed [facility] Pneumococcal Polysaccharide, PPSV23 (PNEUMOVAX) 2023-06-06 00:00:00 Completed [facility] Influenza Virus Vaccine Quad IM, Preserv and ABX Free 6 MO-64 YRS (FLUCELVAX) 2023-06-06 00:00:00 Completed Pneumococcal Polysaccharide, PPSV23 (PNEUMOVAX) 2023-06-06 00:00:00 Completed [facility] Influenza Virus Vaccine Quad IM, Preserv and ABX Free 6 MO-64 YRS (FLUCELVAX) 2023-06-06 00:00:00 Completed Pneumococcal Polysaccharide, PPSV23 (PNEUMOVAX) 2023-06-06 00:00:00 Completed [facility] Influenza Virus Vaccine Quad IM, Preserv and ABX Free 6 MO-64 YRS (FLUCELVAX) 2023-06-06 00:00:00 Completed Influenza Virus Vaccine 2022-05-29 00:00:00 Completed [facility] Influenza Virus Vaccine Quad .5 mL IM 6+ MO 2022-05-29 00:00:00 Completed [facility] Influenza Virus Vaccine 2022-05-29 00:00:00 Completed [facility] Influenza Virus Vaccine Quad .5 mL IM 6+ MO 2022-05-29 00:00:00 Completed [facility] Influenza Virus Vaccine 2022-05-29 00:00:00 Completed [facility] Influenza Virus Vaccine Quad .5 mL IM 6+ MO 2022-05-29 00:00:00 Completed [facility] Influenza Virus Vaccine 2022-05-29 00:00:00 Completed [facility] Influenza Virus Vaccine Quad .5 mL IM 6+ MO 2022-05-29 00:00:00 Completed [facility] Influenza Virus Vaccine 2022-05-29 00:00:00 Completed [facility] Influenza Virus Vaccine Quad .5 mL IM 6+ MO 2022-05-29 00:00:[address] [facility] Influenza Virus Vaccine 2022-05-29 00:00:00 Completed [facility] Influenza Virus Vaccine Quad .5 mL IM 6+ MO 2022-05-29 00:00:00 Completed [facility] Influenza Virus Vaccine 2022-05-29 00:00:00 Completed [facility] Influenza Virus Vaccine Quad .5 mL IM 6+ MO 2022-05-29 00:00:00 Completed [facility] Influenza Virus Vaccine 2022-05-29 00:00:00 Completed [facility] Influenza Virus Vaccine Quad .5 mL IM 6+ MO 2022-05-29 00:00:00 Completed [facility] Influenza Virus Vaccine 2022-05-29 00:00:00 Completed [facility] Influenza Virus Vaccine Quad .5 mL IM 6+ MO 2022-05-29 00:00:00 Completed [facility] Influenza Virus Vaccine 2022-05-29 00:00:00 Completed [facility] Influenza Virus Vaccine Quad .5 mL IM 6+ MO 2022-05-29 00:00:00 Completed [facility] Influenza Virus Vaccine 2022-05-29 00:00:00 Completed [facility] Influenza Virus Vaccine Quad .5 mL IM 6+ MO 2022-05-29 00:00:00 Completed [facility] Influenza Virus Vaccine 2022-05-29 00:00:00 Completed [facility] Influenza Virus Vaccine Quad .5 mL IM 6+ MO 2022-05-29 00:00:[address] [facility] Influenza Virus Vaccine 2022-05-29 00:00:00 Completed [facility] Influenza Virus Vaccine Quad .5 mL IM 6+ MO 2022-05-29 00:00:[address] [facility] Influenza Virus Vaccine 2022-05-29 00:00:00 Completed [facility] Influenza Virus Vaccine Quad .5 mL IM 6+ MO 2022-05-29 00:00:00 Completed [facility] Influenza Virus Vaccine 2022-05-29 00:00:00 Completed [facility] Influenza Virus Vaccine Quad .5 mL IM 6+ MO 2022-05-29 00:00:00 Completed [facility] Influenza Virus Vaccine 2022-05-29 00:00:00 Completed [facility] Influenza Virus Vaccine Quad .5 mL IM 6+ MO 2022-05-29 00:00:00 Completed [facility] Influenza Virus Vaccine 2022-05-29 00:00:00 Completed [facility] Influenza Virus Vaccine Quad .5 mL IM 6+ MO 2022-05-29 00:00:00 Completed [facility] Influenza Virus Vaccine 2022-05-29 00:00:00 Completed [facility] Influenza Virus Vaccine Quad .5 mL IM 6+ MO 2022-05-29 00:00:00 Completed [facility] Influenza Virus Vaccine 2022-05-29 00:00:00 Completed [facility] Influenza Virus Vaccine Quad .5 mL IM 6+ MO 2022-05-29 00:00:00 Completed [facility] Influenza Virus Vaccine 2022-05-29 00:00:00 Completed [facility] Influenza Virus Vaccine Quad .5 mL IM 6+ MO 2022-05-29 00:00:00 Completed [facility] Influenza Virus Vaccine 2022-05-29 00:00:00 Completed [facility] Influenza Virus Vaccine Quad .5 mL IM 6+ MO 2022-05-29 00:00:00 Completed [facility] Influenza Virus Vaccine 2022-05-29 00:00:00 Completed [facility] Influenza Virus Vaccine Quad .5 mL IM 6+ MO 2022-05-29 00:00:00 Completed [facility] Influenza Virus Vaccine 2022-05-29 00:00:00 Completed [facility] Influenza Virus Vaccine Quad .5 mL IM 6+ MO 2022-05-29 00:00:00 Completed [facility] Influenza Virus Vaccine 2022-05-29 00:00:00 Completed [facility] Influenza Virus Vaccine Quad .5 mL IM 6+ MO 2022-05-29 00:00:00 Completed [facility] Influenza Virus Vaccine 2022-05-29 00:00:00 Completed [facility] Influenza Virus Vaccine Quad .5 mL IM 6+ MO 2022-05-29 00:00:00 Completed [facility] Influenza Virus Vaccine 2022-05-29 00:00:00 Completed [facility] Influenza Virus Vaccine Quad .5 mL IM 6+ MO 2022-05-29 00:00:00 Completed [facility] Influenza Virus Vaccine 2022-05-29 00:00:00 Completed [facility] Influenza Virus Vaccine Quad .5 mL IM 6+ MO 2022-05-29 00:00:00 Completed [facility] Influenza Virus Vaccine 2022-05-29 00:00:00 Completed [facility] Influenza Virus Vaccine Quad .5 mL IM 6+ MO 2022-05-29 00:00:00 Completed [facility] Influenza Virus Vaccine 2022-05-29 00:00:00 Completed [facility] Influenza Virus Vaccine Quad .5 mL IM 6+ MO 2022-05-29 00:00:00 Completed [facility] Influenza Virus Vaccine 2022-05-29 00:00:00 Completed [facility] Influenza Virus Vaccine Quad .5 mL IM 6+ MO 2022-05-29 00:00:00 Completed [facility] Influenza Virus Vaccine 2022-05-29 00:00:00 Completed [facility] Influenza Virus Vaccine Quad .5 mL IM 6+ MO 2022-05-29 00:00:00 Completed [facility] Influenza Virus Vaccine 2022-05-29 00:00:00 Completed [facility] Influenza Virus Vaccine Quad .5 mL IM 6+ MO 2022-05-29 00:00:00 Completed [facility] Influenza Virus Vaccine 2022-05-29 00:00:00 Completed [facility] Influenza Virus Vaccine Quad .5 mL IM 6+ MO 2022-05-29 00:00:00 Completed [facility] Influenza Virus Vaccine 2022-05-29 00:00:00 Completed [facility] Influenza Virus Vaccine Quad .5 mL IM 6+ MO 2022-05-29 00:00:00 Completed [facility] Influenza Virus Vaccine 2022-05-29 00:00:00 Completed [facility] Influenza Virus Vaccine Quad .5 mL IM 6+ MO 2022-05-29 00:00:00 Completed [facility] Influenza Virus Vaccine 2022-05-29 00:00:00 Completed [facility] Influenza Virus Vaccine Quad .5 mL IM 6+ MO 2022-05-29 00:00:00 Completed [facility] Influenza Virus Vaccine 2022-05-29 00:00:00 Completed [facility] Influenza Virus Vaccine Quad .5 mL IM 6+ MO 2022-05-29 00:00:00 Completed [facility] Influenza Virus Vaccine 2022-05-29 00:00:00 Completed [facility] Influenza Virus Vaccine Quad .5 mL IM 6+ MO 2022-05-29 00:00:00 Completed [facility] Influenza Virus Vaccine 2022-05-29 00:00:00 Completed [facility] Influenza Virus Vaccine Quad .5 mL IM 6+ MO 2022-05-29 00:00:00 Completed [facility] Influenza Virus Vaccine 2022-05-29 00:00:00 Completed [facility] Influenza Virus Vaccine Quad .5 mL IM 6+ MO 2022-05-29 00:00:00 Completed [facility] Influenza Virus Vaccine 2022-05-29 00:00:00 Completed [facility] Influenza Virus Vaccine Quad .5 mL IM 6+ MO 2022-05-29 00:00:00 Completed [facility] Influenza Virus Vaccine 2022-05-29 00:00:00 Completed [facility] Influenza Virus Vaccine Quad .5 mL IM 6+ MO 2022-05-29 00:00:00 Completed [facility] Influenza Virus Vaccine 2022-05-29 00:00:00 Completed [facility] Influenza Virus Vaccine Quad .5 mL IM 6+ MO 2022-05-29 00:00:00 Completed [facility] Influenza Virus Vaccine 2022-05-29 00:00:00 Completed [facility] Influenza Virus Vaccine Quad .5 mL IM 6+ MO 2022-05-29 00:00:00 Completed [facility] Influenza Virus Vaccine 2022-05-29 00:00:00 Completed [facility] Influenza Virus Vaccine Quad .5 mL IM 6+ MO 2022-05-29 00:00:00 Completed [facility] Influenza Virus Vaccine 2022-05-29 00:00:00 Completed [facility] Influenza Virus Vaccine Quad .5 mL IM 6+ MO 2022-05-29 00:00:00 Completed [facility] Influenza Virus Vaccine 2022-05-29 00:00:00 Completed [facility] Influenza Virus Vaccine Quad .5 mL IM 6+ MO 2022-05-29 00:00:00 Completed [facility] Influenza Virus Vaccine 2022-05-29 00:00:00 Completed [facility] Influenza Virus Vaccine Quad .5 mL IM 6+ MO 2022-05-29 00:00:00 Completed [facility] Influenza Virus Vaccine 2022-05-29 00:00:00 Completed [facility] Influenza Virus Vaccine Quad .5 mL IM 6+ MO 2022-05-29 00:00:00 Completed [facility] Influenza Virus Vaccine 2022-05-29 00:00:00 Completed [facility] Influenza Virus Vaccine Quad .5 mL IM 6+ MO 2022-05-29 00:00:00 Completed [facility] Influenza Virus Vaccine 2022-05-29 00:00:00 Completed [facility] Influenza Virus Vaccine Quad .5 mL IM 6+ MO 2022-05-29 00:00:00 Completed [facility] Influenza Virus Vaccine 2022-05-29 00:00:00 Completed [facility] Influenza Virus Vaccine Quad .5 mL IM 6+ MO 2022-05-29 00:00:00 Completed [facility] Influenza Virus Vaccine 2022-05-29 00:00:00 Completed [facility] Influenza Virus Vaccine Quad .5 mL IM 6+ MO 2022-05-29 00:00:00 Completed [facility] Influenza Virus Vaccine 2022-05-29 00:00:00 Completed [facility] Influenza Virus Vaccine Quad .5 mL IM 6+ MO 2022-05-29 00:00:00 Completed [facility] Influenza Virus Vaccine 2022-05-29 00:00:00 Completed [facility] Influenza Virus Vaccine Quad .5 mL IM 6+ MO 2022-05-29 00:00:00 Completed [facility] Influenza Virus Vaccine 2022-05-29 00:00:00 Completed [facility] Influenza Virus Vaccine Quad .5 mL IM 6+ MO 2022-05-29 00:00:00 Completed [facility] Influenza Virus Vaccine 2022-05-29 00:00:00 Completed [facility] Influenza Virus Vaccine Quad .5 mL IM 6+ MO 2022-05-29 00:00:00 Completed [facility] Influenza Virus Vaccine 2022-05-29 00:00:00 Completed [facility] Influenza Virus Vaccine Quad .5 mL IM 6+ MO 2022-05-29 00:00:00 Completed [facility] Influenza Virus Vaccine 2022-05-29 00:00:00 Completed [facility] Influenza Virus Vaccine Quad .5 mL IM 6+ MO 2022-05-29 00:00:00 Completed [facility] Influenza Virus Vaccine 2022-05-29 00:00:00 Completed [facility] Influenza Virus Vaccine Quad .5 mL IM 6+ MO 2022-05-29 00:00:00 Completed [facility] Influenza Virus Vaccine 2022-05-29 00:00:00 Completed [facility] Influenza Virus Vaccine Quad .5 mL IM 6+ MO 2022-05-29 00:00:00 Completed [facility] Influenza Virus Vaccine 2022-05-29 00:00:00 Completed [facility] Influenza Virus Vaccine Quad .5 mL IM 6+ MO 2022-05-29 00:00:00 Completed [facility] Influenza Virus Vaccine 2022-05-29 00:00:00 Completed [facility] Influenza Virus Vaccine Quad .5 mL IM 6+ MO 2022-05-29 00:00:00 Completed [facility] Influenza Virus Vaccine 2022-05-29 00:00:00 Completed [facility] Influenza Virus Vaccine Quad .5 mL IM 6+ MO 2022-05-29 00:00:00 Completed [facility] Influenza Virus Vaccine 2022-05-29 00:00:00 Completed [facility] Influenza Virus Vaccine Quad .5 mL IM 6+ MO 2022-05-29 00:00:00 Completed [facility] Influenza Virus Vaccine 2022-05-29 00:00:00 Completed [facility] Influenza Virus Vaccine Quad .5 mL IM 6+ MO 2022-05-29 00:00:00 Completed [facility] Influenza Virus Vaccine 2022-05-29 00:00:00 Completed [facility] Influenza Virus Vaccine Quad .5 mL IM 6+ MO 2022-05-29 00:00:00 Completed [facility] Influenza Virus Vaccine 2022-05-29 00:00:00 Completed [facility] Influenza Virus Vaccine Quad .5 mL IM 6+ MO 2022-05-29 00:00:00 Completed [facility] Influenza Virus Vaccine 2022-05-29 00:00:00 Completed [facility] Influenza Virus Vaccine Quad .5 mL IM 6+ MO 2022-05-29 00:00:00 Completed [facility] Influenza Virus Vaccine 2022-05-29 00:00:00 Completed [facility] Influenza Virus Vaccine Quad .5 mL IM 6+ MO 2022-05-29 00:00:00 Completed [facility] Influenza Virus Vaccine 2022-05-29 00:00:00 Completed [facility] Influenza Virus Vaccine Quad .5 mL IM 6+ MO 2022-05-29 00:00:00 Completed [facility] Influenza Virus Vaccine 2022-05-29 00:00:00 Completed [facility] Influenza Virus Vaccine Quad .5 mL IM 6+ MO 2022-05-29 00:00:00 Completed [facility] Influenza Virus Vaccine 2022-05-29 00:00:00 Completed [facility] Influenza Virus Vaccine Quad .5 mL IM 6+ MO 2022-05-29 00:00:00 Completed [facility] Influenza Virus Vaccine 2022-05-29 00:00:00 Completed [facility] Influenza Virus Vaccine Quad .5 mL IM 6+ MO 2022-05-29 00:00:[address] [facility] Influenza Virus Vaccine 2022-05-29 00:00:00 Completed [facility] Influenza Virus Vaccine Quad .5 mL IM 6+ MO 2022-05-29 00:00:[address] [facility] Influenza Virus Vaccine 2022-05-29 00:00:00 Completed [facility] Influenza Virus Vaccine Quad .5 mL IM 6+ MO 2022-05-29 00:00:00 Completed [facility] Influenza Virus Vaccine 2022-05-29 00:00:00 Completed [facility] Influenza Virus Vaccine Quad .5 mL IM 6+ MO 2022-05-29 00:00:00 Completed [facility] Influenza Virus Vaccine 2022-05-29 00:00:00 Completed [facility] Influenza Virus Vaccine Quad .5 mL IM 6+ MO 2022-05-29 00:00:[address] [facility] Influenza Virus Vaccine 2022-05-29 00:00:00 Completed [facility] Influenza Virus Vaccine Quad .5 mL IM 6+ MO 2022-05-29 00:00:00 Completed [facility] Influenza Virus Vaccine 2022-05-29 00:00:00 Completed [facility] Influenza Virus Vaccine Quad .5 mL IM 6+ MO 2022-05-29 00:00:00 Completed [facility] Influenza Virus Vaccine 2022-05-29 00:00:00 Completed [facility] Influenza Virus Vaccine Quad .5 mL IM 6+ MO 2022-05-29 00:00:00 Completed [facility] Influenza Virus Vaccine 2022-05-29 00:00:00 Completed [facility] Influenza Virus Vaccine Quad .5 mL IM 6+ MO 2022-05-29 00:00:00 Completed [facility] Influenza Virus Vaccine 2022-05-29 00:00:00 Completed [facility] Influenza Virus Vaccine Quad .5 mL IM 6+ MO 2022-05-29 00:00:00 Completed [facility] Influenza Virus Vaccine 2022-05-29 00:00:00 Completed [facility] Influenza Virus Vaccine Quad .5 mL IM 6+ MO 2022-05-29 00:00:00 Completed [facility] Influenza Virus Vaccine 2022-05-29 00:00:00 Completed [facility] Influenza Virus Vaccine Quad .5 mL IM 6+ MO 2022-05-29 00:00:00 Completed [facility] Influenza Virus Vaccine 2022-05-29 00:00:00 Completed [facility] Influenza Virus Vaccine Quad .5 mL IM 6+ MO 2022-05-29 00:00:00 Completed [facility] Influenza Virus Vaccine 2022-05-29 00:00:00 Completed [facility] Influenza Virus Vaccine Quad .5 mL IM 6+ MO 2022-05-29 00:00:00 Completed [facility] Influenza Virus Vaccine 2022-05-29 00:00:00 Completed [facility] Influenza Virus Vaccine Quad .5 mL IM 6+ MO 2022-05-29 00:00:00 Completed [facility] Influenza Virus Vaccine 2022-05-29 00:00:00 Completed [facility] Influenza Virus Vaccine Quad .5 mL IM 6+ MO (FLUZONE/FLULAVAL/F LUARIX) 2022-05-29 00:00:00 Completed [facility] Influenza Virus Vaccine 2022-05-29 00:00:00 Completed [facility] Influenza Virus Vaccine Quad .5 mL IM 6+ MO (FLUZONE/FLULAVAL/F LUARIX) 2022-05-29 00:00:00 Completed [facility] Influenza Virus Vaccine 2022-05-29 00:00:00 [...] mL IM 6+ MO 2021-07-01 00:00:00 Completed [facility] Influenza Virus Vaccine Quad .5 mL IM 6+ MO 2021-07-01 00:00:00 Completed [facility] Influenza Virus Vaccine Quad .5 mL IM 6+ MO 2021-07-01 00:00:00 Completed [facility] Influenza Virus Vaccine Quad .5 mL IM 6+ MO 2021-07-01 00:00:00 Completed [facility] Influenza Virus Vaccine Quad .5 mL IM 6+ MO 2021-07-01 00:00:00 Completed [facility] Influenza Virus Vaccine Quad .5 mL IM 6+ MO 2021-07-01 00:00:00 Completed [facility] Influenza Virus Vaccine Quad .5 mL IM 6+ MO 2021-07-01 00:00:00 Completed [facility] Influenza Virus Vaccine Quad .5 mL IM 6+ MO 2021-07-01 00:00:00 Completed [facility] Influenza Virus Vaccine Quad .5 mL IM 6+ MO 2021-07-01 00:00:00 Completed [facility] Influenza Virus Vaccine Quad .5 mL IM 6+ MO 2021-07-01 00:00:00 Completed [facility] Influenza Virus Vaccine Quad .5 mL IM 6+ MO 2021-07-01 00:00:00 Completed [facility] Influenza Virus Vaccine Quad .5 mL IM 6+ MO 2021-07-01 00:00:00 Completed [facility] Influenza Virus Vaccine Quad .5 mL IM 6+ MO 2021-07-01 00:00:00 Completed [facility] Influenza Virus Vaccine Quad .5 mL IM 6+ MO 2021-07-01 00:00:00 Completed [facility] Influenza Virus Vaccine Quad .5 mL IM 6+ MO 2021-07-01 00:00:00 Completed [facility] Influenza Virus Vaccine Quad .5 mL IM 6+ MO 2021-07-01 00:00:00 Completed [facility] Influenza Virus Vaccine Quad .5 mL IM 6+ MO 2021-07-01 00:00:00 Completed [facility] Influenza Virus Vaccine Quad .5 mL IM 6+ MO 2021-07-01 00:00:00 Completed [facility] Influenza Virus Vaccine Quad .5 mL IM 6+ MO 2021-07-01 00:00:00 Completed [facility] Influenza Virus Vaccine Quad .5 mL IM 6+ MO 2021-07-01 00:00:00 Completed [facility] Influenza Virus Vaccine Quad .5 mL IM 6+ MO 2021-07-01 00:00:00 Completed [facility] Influenza Virus Vaccine Quad .5 mL IM 6+ MO 2021-07-01 00:00:00 Completed [facility] Influenza Virus Vaccine Quad .5 mL IM 6+ MO 2021-07-01 00:00:00 Completed [facility] Influenza Virus Vaccine Quad .5 mL IM 6+ MO 2021-07-01 00:00:00 Completed [facility] Influenza Virus Vaccine Quad .5 mL IM 6+ MO 2021-07-01 00:00:00 Completed [facility] Influenza Virus Vaccine Quad .5 mL IM 6+ MO 2021-07-01 00:00:00 Completed [facility] Influenza Virus Vaccine Quad .5 mL IM 6+ MO 2021-07-01 00:00:00 Completed [facility] Influenza Virus Vaccine Quad .5 mL IM 6+ MO 2021-07-01 00:00:00 Completed [facility] Influenza Virus Vaccine Quad .5 mL IM 6+ MO 2021-07-01 00:00:00 Completed [facility] Influenza Virus Vaccine Quad .5 mL IM 6+ MO 2021-07-01 00:00:00 Completed [facility] Influenza Virus Vaccine Quad .5 mL IM 6+ MO 2021-07-01 00:00:00 Completed [facility] Influenza Virus Vaccine Quad .5 mL IM 6+ MO 2021-07-01 00:00:00 Completed [facility] Influenza Virus Vaccine Quad .5 mL IM 6+ MO 2021-07-01 00:00:00 Completed [facility] Influenza Virus Vaccine Quad .5 mL IM 6+ MO 2021-07-01 00:00:00 Completed [facility] Influenza Virus Vaccine Quad .5 mL IM 6+ MO 2021-07-01 00:00:00 Completed [facility] Influenza Virus Vaccine Quad .5 mL IM 6+ MO 2021-07-01 00:00:00 Completed [facility] Influenza Virus Vaccine Quad .5 mL IM 6+ MO 2021-07-01 00:00:00 Completed [facility] Influenza Virus Vaccine Quad .5 mL IM 6+ MO 2021-07-01 00:00:00 Completed [facility] Influenza Virus Vaccine Quad .5 mL IM 6+ MO 2021-07-01 00:00:00 Completed [facility] Influenza Virus Vaccine Quad .5 mL IM 6+ MO 2021-07-01 00:00:00 Completed [facility] Influenza Virus Vaccine Quad .5 mL IM 6+ MO 2021-07-01 00:00:00 Completed [facility] Influenza Virus Vaccine Quad .5 mL IM 6+ MO 2021-07-01 00:00:00 Completed [facility] Influenza Virus Vaccine Quad .5 mL IM 6+ MO 2021-07-01 00:00:00 Completed [facility] Influenza Virus Vaccine Quad .5 mL IM 6+ MO 2021-07-01 00:00:00 Completed [facility] Influenza Virus Vaccine Quad .5 mL IM 6+ MO 2021-07-01 00:00:00 Completed [facility] Influenza Virus Vaccine Quad .5 mL IM 6+ MO 2021-07-01 00:00:00 Completed [facility] Influenza Virus Vaccine Quad .5 mL IM 6+ MO 2021-07-01 00:00:00 Completed [facility] Influenza Virus Vaccine Quad .5 mL IM 6+ MO 2021-07-01 00:00:00 Completed [facility] Influenza Virus Vaccine Quad .5 mL IM 6+ MO 2021-07-01 00:00:00 Completed [facility] Influenza Virus Vaccine Quad .5 mL IM 6+ MO 2021-07-01 00:00:00 Completed [facility] Influenza Virus Vaccine Quad .5 mL IM 6+ MO 2021-07-01 00:00:00 Completed [facility] Influenza Virus Vaccine Quad .5 mL IM 6+ MO 2021-07-01 00:00:00 Completed [facility] Influenza Virus Vaccine Quad .5 mL IM 6+ MO 2021-07-01 00:00:00 Completed [facility] Influenza Virus Vaccine Quad .5 mL IM 6+ MO 2021-07-01 00:00:00 Completed [facility] Influenza Virus Vaccine Quad .5 mL IM 6+ MO 2021-07-01 00:00:00 Completed [facility] Influenza Virus Vaccine Quad .5 mL IM 6+ MO 2021-07-01 00:00:00 Completed [facility] Influenza Virus Vaccine Quad .5 mL IM 6+ MO 2021-07-01 00:00:00 Completed [facility] Influenza Virus Vaccine Quad .5 mL IM 6+ MO 2021-07-01 00:00:00 Completed [facility] Influenza Virus Vaccine Quad .5 mL IM 6+ MO 2021-07-01 00:00:00 Completed [facility] Influenza Virus Vaccine Quad .5 mL IM 6+ MO 2021-07-01 00:00:00 Completed [facility] Influenza Virus Vaccine Quad .5 mL IM 6+ MO 2021-07-01 00:00:00 Completed [facility] Influenza Virus Vaccine Quad .5 mL IM 6+ MO 2021-07-01 00:00:00 Completed [facility] Influenza Virus Vaccine Quad .5 mL IM 6+ MO 2021-07-01 00:00:00 Completed [facility] Influenza Virus Vaccine Quad .5 mL IM 6+ MO 2021-07-01 00:00:00 Completed [facility] Influenza Virus Vaccine Quad .5 mL IM 6+ MO 2021-07-01 00:00:00 Completed [facility] Influenza Virus Vaccine Quad .5 mL IM 6+ MO 2021-07-01 00:00:00 Completed [facility] Influ[employer] [facility] Vaccine Quad .5 mL IM 6+ MO 2021-07-01 00:00:00 Completed [facility] Influenza Virus Vaccine Quad .5 mL IM 6+ MO 2021-07-01 00:00:00 Completed [facility] Influ[employer] Virus Vaccine Quad .5 mL IM 6+ MO 2021-07-01 00:00:00 Completed [facility] Influ[facility] Virus Vaccine Quad .5 mL IM 6+ MO 2021-07-01 00:00:00 Completed [facility] Influ[facility] Virus Vaccine Quad .5 mL IM 6+ MO 2021-07-01 00:00:00 Completed [facility] Influ[facility] Virus Vaccine Quad .5 mL IM 6+ MO 2021-07-01 00:00:00 Completed [facility] Influ[facility] Virus Vaccine Quad .5 mL IM 6+ MO 2021-07-01 00:00:00 Completed [facility] Influ[facility] Vaccine Quad .5 mL IM 6+ MO 2021-07-01 00:00:00 Completed [facility] Vaccine Quad .5 mL IM 6+ MO 2021-07-01 00:00:00 Completed [facility] Influenza Virus Vaccine Quad .5 mL IM 6+ MO 2021-07-01 00:00:00 Completed [facility] Influenza Virus Vaccine Quad .5 mL IM 6+ MO 2021-07-01 00:00:00 Completed [facility] Influenza Virus Vaccine Quad .5 mL IM 6+ MO 2021-07-01 00:00:00 Completed [facility] Influenza Virus Vaccine Quad .5 mL IM 6+ MO 2021-07-01 00:00:00 Completed [facility] Influenza Virus Vaccine Quad .5 mL IM 6+ MO 2021-07-01 00:00:00 Completed [facility] Influenza Virus Vaccine Quad .5 mL IM 6+ MO 2021-07-01 00:00:00 Completed [facility] Influenza Virus Vaccine Quad .5 mL IM 6+ MO 2021-07-01 00:00:00 Completed [facility] Influenza Virus Vaccine Quad .5 mL IM 6+ MO 2021-07-01 00:00:00 Completed [facility] Influenza Virus Vaccine Quad .5 mL IM 6+ MO 2021-07-01 00:00:00 Completed [facility] Influenza Virus Vaccine Quad .5 mL IM 6+ MO 2021-07-01 00:00:00 Completed [facility] Influenza Virus Vaccine Quad .5 mL IM 6+ MO 2021-07-01 00:00:00 Completed [facility] Influenza Virus Vaccine Quad .5 mL IM 6+ MO 2021-07-01 00:00:00 Completed [facility] Influenza Virus Vaccine Quad .5 mL IM 6+ MO 2021-07-01 00:00:00 Completed [facility] Influenza Virus Vaccine Quad .5 mL IM 6+ MO 2021-07-01 00:00:00 Completed [facility] Influenza Virus Vaccine Quad .5 mL IM 6+ MO 2021-07-01 00:00:00 Completed [facility] Influenza Virus Vaccine Quad .5 mL IM 6+ MO 2021-07-01 00:00:00 Completed [facility] Influenza Virus Vaccine Quad .5 mL IM 6+ MO 2021-07-01 00:00:00 Completed [facility] Influenza Virus Vaccine Quad .5 mL IM 6+ MO 2021-07-01 00:00:00 Completed [facility] Influenza Virus Vaccine Quad .5 mL IM 6+ MO 2021-07-01 00:00:00 Completed [facility] Influenza Virus Vaccine Quad .5 mL IM 6+ MO 2021-07-01 00:00:00 Completed [facility] Influenza Virus Vaccine Quad .5 mL IM 6+ MO 2021-07-01 00:00:00 Completed [facility] Influenza Virus Vaccine Quad .5 mL IM 6+ MO (FLUZONE/FLULAVAL/F LUARIX) 2021-07-01 00:00:00 Completed [facility] Influenza Virus Vaccine Quad .5 mL IM 6+ MO (FLUZONE/FLULAVAL/F LUARIX) 2021-07-01 00:00:00 Completed [facility] Influenza Virus Vaccine Quad .5 mL IM 6+ MO (FLUZONE/FLULAVAL/F LUARIX) 2021-07-01 00:00:00 Completed [facility] Influenza Virus Vaccine Quad .5 mL IM 6+ MO (FLUZONE/FLULAVAL/F LUARIX) 2021-07-01 00:00:00 Completed [facility] Influenza Virus Vaccine Quad .5 mL IM 6+ MO (FLUZONE/FLULAVAL/F LUARIX) 2021-07-01 00:00:00 Completed [facility] Influenza Virus Vaccine Quad .5 mL IM 6+ MO 2021-07-01 00:00:00 Completed [facility] Influenza Virus Vaccine Quad .5 mL IM 6+ MO 2021-07-01 00:00:00 Completed [facility] Influenza Virus Vaccine Quad .5 mL IM 6+ MO 2021-07-01 00:00:00 Completed [facility] Influenza Virus Vaccine Quad .5 mL IM 6+ MO 2021-07-01 00:00:00 Completed [facility] Influenza Virus Vaccine Quad .5 mL IM 6+ MO 2021-07-01 00:00:00 Completed [facility] Influenza Virus Vaccine Quad .5 mL IM 6+ MO 2021-07-01 00:00:00 Completed [facility] Influenza Virus Vaccine Quad .5 mL IM 6+ MO 2021-07-01 00:00:00 Completed [facility] Influenza Virus Vaccine Quad .5 mL IM 6+ MO 2021-07-01 00:00:00 Completed [facility] Influenza Virus Vaccine Quad .5 mL IM 6+ MO 2021-07-01 00:00:00 Completed [facility] Influenza Virus Vaccine Quad .5 mL IM 6+ MO 2021-07-01 00:00:00 Completed [facility] Influenza Virus Vaccine Quad .5 mL IM 6+ MO 2021-07-01 00:00:00 Completed [facility] Influenza Virus Vaccine Quad .5 mL IM 6+ MO 2021-07-01 00:00:00 Completed [facility] Influenza Virus Vaccine Quad .5 mL IM 6+ MO 2021-07-01 00:00:00 Completed [facility] Influenza Virus Vaccine Quad .5 mL IM 6+ MO 2021-07-01 00:00:00 Completed [facility] Influenza Virus Vaccine Quad .5 mL IM 6+ MO 2021-07-01 00:00:00 Completed [facility] Influenza Virus Vaccine Quad .5 mL IM 6+ MO 2021-07-01 00:00:00 Completed [facility] Influenza Virus Vaccine Quad .5 mL IM 6+ MO 2021-07-01 00:00:00 Completed [facility] Influenza Virus Vaccine Quad .5 mL IM 6+ MO 2021-07-01 00:00:00 Completed [facility] Influenza Virus Vaccine Quad .5 mL IM 6+ MO 2021-07-01 00:00:00 Completed [facility] Influenza Virus Vaccine Quad .5 mL IM 6+ MO 2021-07-01 00:00:00 Completed [facility] Influenza Virus Vaccine Quad .5 mL IM 6+ MO 2021-07-01 00:00:00 Completed [facility] Influenza Virus Vaccine Quad .5 mL IM 6+ MO 2021-07-01 00:00:00 Completed [facility] Influenza Virus Vaccine Quad .5 mL IM 6+ MO 2021-07-01 00:00:00 Completed [facility] Influenza Virus Vaccine Quad .5 mL IM 6+ MO 2021-07-01 00:00:00 Completed [facility] Influenza Virus Vaccine Quad .5 mL IM 6+ MO 2021-07-01 00:00:00 Completed [facility] Influenza Virus Vaccine Quad .5 mL IM 6+ MO 2021-07-01 00:00:00 Completed [facility] Influenza Virus Vaccine Quad .5 mL IM 6+ MO 2021-07-01 00:00:00 Completed [facility] Influenza Virus Vaccine Quad .5 mL IM 6+ MO 2021-07-01 00:00:00 Completed [facility] Influenza Virus Vaccine Quad .5 mL IM 6+ MO 2021-07-01 00:00:00 Completed [facility] Influenza Virus Vaccine Quad .5 mL IM 6+ MO 2021-07-01 00:00:00 Completed [facility] Influenza Virus Vaccine Quad .5 mL IM 6+ MO 2021-07-01 00:00:00 Completed [facility] Influenza Virus Vaccine Quad .5 mL IM 6+ MO 2021-07-01 00:00:00 Completed [facility] Influenza Virus Vaccine Quad .5 mL IM 6+ MO 2021-07-01 00:00:00 Completed [facility] Influenza Virus Vaccine Quad .5 mL IM 6+ MO 2021-07-01 00:00:00 Completed [facility] Influenza Virus Vaccine Quad .5 mL IM 6+ MO 2021-07-01 00:00:00 Completed [facility] Influenza Virus Vaccine Quad .5 mL IM 6+ MO 2021-07-01 00:00:00 Completed [facility] Influenza Virus Vaccine Quad .5 mL IM 6+ MO 2021-07-01 00:00:00 Completed [facility] Pneumococcal Polysaccharide, PPSV23 (PNEUMOVAX) 2020-07-13 00:00:00 Completed [facility] Pneumococcal Polysaccharide, PPSV23 (PNEUMOVAX) 2020-07-13 00:00:00 Completed [facility] Pneumococcal Polysaccharide, PPSV23 (PNEUMOVAX) 2020-07-13 00:00:00 Completed [facility] Pneumococcal Polysaccharide, PPSV23 (PNEUMOVAX) 2020-07-13 00:00:00 Completed [facility] Pneumococcal Polysaccharide, PPSV23 (PNEUMOVAX) 2020-07-13 00:00:00 Completed [facility] Pneumococcal Polysaccharide, PPSV23 (PNEUMOVAX) 2020-07-13 00:00:00 Completed [facility] Pneumococcal Polysaccharide, PPSV23 (PNEUMOVAX) 2020-07-13 00:00:00 Completed [facility] Pneumococcal Polysaccharide, PPSV23 (PNEUMOVAX) 2020-07-13 00:00:00 Completed [facility] Pneumococcal Polysaccharide, PPSV23 (PNEUMOVAX) 2020-07-13 00:00:00 Completed [facility] Pneumococcal Polysaccharide, PPSV23 (PNEUMOVAX) 2020-07-13 00:00:00 Completed [facility] Pneumococcal Polysaccharide, PPSV23 (PNEUMOVAX) 2020-07-13 00:00:00 Completed [facility] Pneumococcal Polysaccharide, PPSV23 (PNEUMOVAX) 2020-07-13 00:00:00 Completed [facility] Pneumococcal Polysaccharide, PPSV23 (PNEUMOVAX) 2020-07-13 00:00:00 Completed [facility] Pneumococcal Polysaccharide, PPSV23 (PNEUMOVAX) 2020-07-13 00:00:00 Completed [facility] Pneumococcal Polysaccharide, PPSV23 (PNEUMOVAX) 2020-07-13 00:00:00 Completed [facility] Pneumococcal Polysaccharide, PPSV23 (PNEUMOVAX) 2020-07-13 00:00:00 Completed [facility] Pneumococcal Polysaccharide, PPSV23 (PNEUMOVAX) 2020-07-13 00:00:00 Completed [facility] Pneumococcal Polysaccharide, PPSV23 (PNEUMOVAX) 2020-07-13 00:00:00 Completed [facility] Pneumococcal Polysaccharide, PPSV23 (PNEUMOVAX) 2020-07-13 00:00:00 Completed [facility] Pneumococcal Polysaccharide, PPSV23 (PNEUMOVAX) 2020-07-13 00:00:00 Completed [facility] Pneumococcal Polysaccharide, PPSV23 (PNEUMOVAX) 2020-07-13 00:00:00 Completed [facility] Pneumococcal Polysaccharide, PPSV23 (PNEUMOVAX) 2020-07-13 00:00:00 Completed [facility] Pneumococcal Polysaccharide, PPSV23 (PNEUMOVAX) 2020-07-13 00:00:00 Completed [facility] Pneumococcal Polysaccharide, PPSV23 (PNEUMOVAX) 2020-07-13 00:00:00 Completed [facility] Pneumococcal Polysaccharide, PPSV23 (PNEUMOVAX) 2020-07-13 00:00:00 Completed [facility] Pneumococcal Polysaccharide, PPSV23 (PNEUMOVAX) 2020-07-13 00:00:00 Completed [facility] Pneumococcal Polysaccharide, PPSV23 (PNEUMOVAX) 2020-07-13 00:00:00 Completed [facility] Pneumococcal Polysaccharide, PPSV23 (PNEUMOVAX) 2020-07-13 00:00:00 Completed [facility] Pneumococcal Polysaccharide, PPSV23 (PNEUMOVAX) 2020-07-13 00:00:00 Completed [facility] Pneumococcal Polysaccharide, PPSV23 (PNEUMOVAX) 2020-07-13 00:00:00 Completed [facility] Pneumococcal Polysaccharide, PPSV23 (PNEUMOVAX) 2020-07-13 00:00:00 Completed [facility] Pneumococcal Polysaccharide, PPSV23 (PNEUMOVAX) 2020-07-13 00:00:00 Completed [facility] Pneumococcal Polysaccharide, PPSV23 (PNEUMOVAX) 2020-07-13 00:00:00 Completed [facility] Pneumococcal Polysaccharide, PPSV23 (PNEUMOVAX) 2020-07-13 00:00:00 Completed [facility] Pneumococcal Polysaccharide, PPSV23 (PNEUMOVAX) 2020-07-13 00:00:00 Completed [facility] Pneumococcal Polysaccharide, PPSV23 (PNEUMOVAX) 2020-07-13 00:00:00 Completed [facility] Pneumococcal Polysaccharide, PPSV23 (PNEUMOVAX) 2020-07-13 00:00:00 Completed [facility] Pneumococcal Polysaccharide, PPSV23 (PNEUMOVAX) 2020-07-13 00:00:00 Completed [facility] Pneumococcal Polysaccharide, PPSV23 (PNEUMOVAX) 2020-07-13 00:00:00 Completed [facility] Pneumococcal Polysaccharide, PPSV23 (PNEUMOVAX) 2020-07-13 00:00:00 Completed [facility] Pneumococcal Polysaccharide, PPSV23 (PNEUMOVAX) 2020-07-13 00:00:00 Completed [facility] Pneumococcal Polysaccharide, PPSV23 (PNEUMOVAX) 2020-07-13 00:00:00 Completed [facility] Pneumococcal Polysaccharide, PPSV23 (PNEUMOVAX) 2020-07-13 00:00:00 Completed [facility] Pneumococcal Polysaccharide, PPSV23 (PNEUMOVAX) 2020-07-13 00:00:00 Completed [facility] Pneumococcal Polysaccharide, PPSV23 (PNEUMOVAX) 2020-07-13 00:00:00 Completed [facility] Pneumococcal Polysaccharide, PPSV23 (PNEUMOVAX) 2020-07-13 00:00:00 Completed [facility] Pneumococcal Polysaccharide, PPSV23 (PNEUMOVAX) 2020-07-13 00:00:00 Completed [facility] Pneumococcal Polysaccharide, PPSV23 (PNEUMOVAX) 2020-07-13 00:00:00 Completed [facility] Pneumococcal Polysaccharide, PPSV23 (PNEUMOVAX) 2020-07-13 00:00:00 Completed [facility] Pneumococcal Polysaccharide, PPSV23 (PNEUMOVAX) 2020-07-13 00:00:00 Completed [facility] Pneumococcal Polysaccharide, PPSV23 (PNEUMOVAX) 2020-07-13 00:00:00 Completed [facility] Pneumococcal Polysaccharide, PPSV23 (PNEUMOVAX) 2020-07-13 00:00:00 Completed [facility] Pneumococcal Polysaccharide, PPSV23 (PNEUMOVAX) 2020-07-13 00:00:00 Completed [facility] Pneumococcal Polysaccharide, PPSV23 (PNEUMOVAX) 2020-07-13 00:00:00 Completed [facility] Pneumococcal Polysaccharide, PPSV23 (PNEUMOVAX) 2020-07-13 00:00:00 Completed [facility] Pneumococcal Polysaccharide, PPSV23 (PNEUMOVAX) 2020-07-13 00:00:00 Completed [facility] Pneumococcal Polysaccharide, PPSV23 (PNEUMOVAX) 2020-07-13 00:00:00 Completed [facility] Pneumococcal Polysaccharide, PPSV23 (PNEUMOVAX) 2020-07-13 00:00:00 Completed [facility] Pneumococcal Polysaccharide, PPSV23 (PNEUMOVAX) 2020-07-13 00:00:00 Completed [facility] Pneumococcal Polysaccharide, PPSV23 (PNEUMOVAX) 2020-07-13 00:00:00 Completed [facility] Pneumococcal Polysaccharide, PPSV23 (PNEUMOVAX) 2020-07-13 00:00:00 Completed [facility] Pneumococcal Polysaccharide, PPSV23 (PNEUMOVAX) 2020-07-13 00:00:00 Completed [facility] Pneumococcal Polysaccharide, PPSV23 (PNEUMOVAX) 2020-07-13 00:00:00 Completed [facility] Pneumococcal Polysaccharide, PPSV23 (PNEUMOVAX) 2020-07-13 00:00:00 Completed [facility] Pneumococcal Polysaccharide, PPSV23 (PNEUMOVAX) 2020-07-13 00:00:00 Completed [facility] Pneumococcal Polysaccharide, PPSV23 (PNEUMOVAX) 2020-07-13 00:00:00 Completed [facility] Pneumococcal Polysaccharide, PPSV23 (PNEUMOVAX) 2020-07-13 00:00:00 Completed [facility] Pneumococcal Polysaccharide, PPSV23 (PNEUMOVAX) 2020-07-13 00:00:00 Completed [facility] Pneumococcal Polysaccharide, PPSV23 (PNEUMOVAX) 2020-07-13 00:00:00 Completed [facility] Pneumococcal Polysaccharide, PPSV23 (PNEUMOVAX) 2020-07-13 00:00:00 Completed [facility] Pneumococcal Polysaccharide, PPSV23 (PNEUMOVAX) 2020-07-13 00:00:00 Completed [facility] Pneumococcal Polysaccharide, PPSV23 (PNEUMOVAX) 2020-07-13 00:00:00 Completed [facility] Pneumococcal Polysaccharide, PPSV23 (PNEUMOVAX) 2020-07-13 00:00:00 Completed [facility] Pneumococcal Polysaccharide, PPSV23 (PNEUMOVAX) 2020-07-13 00:00:00 Completed [facility] Pneumococcal Polysaccharide, PPSV23 (PNEUMOVAX) 2020-07-13 00:00:00 Completed [facility] Pneumococcal Polysaccharide, PPSV23 (PNEUMOVAX) 2020-07-13 00:00:00 Completed [facility] Pneumococcal Polysaccharide, PPSV23 (PNEUMOVAX) 2020-07-13 00:00:00 Completed [facility] Pneumococcal Polysaccharide, PPSV23 (PNEUMOVAX) 2020-07-13 00:00:00 Completed [facility] Pneumococcal Polysaccharide, PPSV23 (PNEUMOVAX) 2020-07-13 00:00:00 Completed [facility] Pneumococcal Polysaccharide, PPSV23 (PNEUMOVAX) 2020-07-13 00:00:00 Completed [facility] Pneumococcal Polysaccharide, PPSV23 (PNEUMOVAX) 2020-07-13 00:00:00 Completed [facility] Pneumococcal Polysaccharide, PPSV23 (PNEUMOVAX) 2020-07-13 00:00:00 Completed [facility] Pneumococcal Polysaccharide, PPSV23 (PNEUMOVAX) 2020-07-13 00:00:00 Completed [facility] Pneumococcal Polysaccharide, PPSV23 (PNEUMOVAX) 2020-07-13 00:00:00 Completed [facility] Pneumococcal Polysaccharide, PPSV23 (PNEUMOVAX) 2020-07-13 00:00:00 Completed [facility] Pneumococcal Polysaccharide, PPSV23 (PNEUMOVAX) 2020-07-13 00:00:00 Completed [facility] Pneumococcal Polysaccharide, PPSV23 (PNEUMOVAX) 2020-07-13 00:00:00 Completed [facility] Pneumococcal Polysaccharide, PPSV23 (PNEUMOVAX) 2020-07-13 00:00:00 Completed [facility] Pneumococcal Polysaccharide, PPSV23 (PNEUMOVAX) 2020-07-13 00:00:00 Completed [facility] Pneumococcal Polysaccharide, PPSV23 (PNEUMOVAX) 2020-07-13 00:00:00 Completed [facility] Pneumococcal Polysaccharide, PPSV23 (PNEUMOVAX) 2020-07-13 00:00:00 Completed [facility] Pneumococcal Polysaccharide, PPSV23 (PNEUMOVAX) 2020-07-13 00:00:00 Completed [facility] Pneumococcal Polysaccharide, PPSV23 (PNEUMOVAX) 2020-07-13 00:00:00 Completed [facility] Pneumococcal Polysaccharide, PPSV23 (PNEUMOVAX) 2020-07-13 00:00:00 Completed [facility] Pneumococcal Polysaccharide, PPSV23 (PNEUMOVAX) 2020-07-13 00:00:00 Completed [facility] Pneumococcal Polysaccharide, PPSV23 (PNEUMOVAX) 2020-07-13 00:00:00 Completed [facility] Pneumococcal Polysaccharide, PPSV23 (PNEUMOVAX) 2020-07-13 00:00:00 Completed [facility] Pneumococcal Polysaccharide, PPSV23 (PNEUMOVAX) 2020-07-13 00:00:00 Completed [facility] Pneumococcal Polysaccharide, PPSV23 (PNEUMOVAX) 2020-07-13 00:00:00 Completed [facility] Pneumococcal Polysaccharide, PPSV23 (PNEUMOVAX) 2020-07-13 00:00:00 Completed Pneumococcal Polysaccharide, PPSV23 (PNEUMOVAX) 2020-07-13 00:00:00 Completed Pneumococcal Polysaccharide, PPSV23 (PNEUMOVAX) 2020-07-13 00:00:00 Completed Pneumococcal Polysaccharide, PPSV23 (PNEUMOVAX) 2020-07-13 00:00:00 Completed [facility] Pneumococcal Polysaccharide, PPSV23 (PNEUMOVAX) 2020-07-13 00:00:00 Completed [facility] Pneumococcal Polysaccharide, PPSV23 (PNEUMOVAX) 2020-07-13 00:00:00 Completed [facility] Pneumococcal Polysaccharide, PPSV23 (PNEUMOVAX) 2020-07-13 00:00:00 Completed [facility] Pneumococcal Polysaccharide, PPSV23 (PNEUMOVAX) 2020-07-13 00:00:00 Completed [facility] Pneumococcal Polysaccharide, PPSV23 (PNEUMOVAX) 2020-07-13 00:00:00 Completed [facility] Pneumococcal Polysaccharide, PPSV23 (PNEUMOVAX) 2020-07-13 00:00:00 Completed [facility] Pneumococcal Polysaccharide, PPSV23 (PNEUMOVAX) 2020-07-13 00:00:00 Completed [facility] Pneumococcal Polysaccharide, PPSV23 (PNEUMOVAX) 2020-07-13 00:00:00 Completed [facility] Pneumococcal Polysaccharide, PPSV23 (PNEUMOVAX) 2020-07-13 00:00:00 Completed [facility] Pneumococcal Polysaccharide, PPSV23 (PNEUMOVAX) 2020-07-13 00:00:00 Completed [facility] Pneumococcal Polysaccharide, PPSV23 (PNEUMOVAX) 2020-07-13 00:00:00 Completed [facility] Pneumococcal Polysaccharide, PPSV23 (PNEUMOVAX) 2020-07-13 00:00:00 Completed [facility] Pneumococcal Polysaccharide, PPSV23 (PNEUMOVAX) 2020-07-13 00:00:00 Completed [facility] Pneumococcal Polysaccharide, PPSV23 (PNEUMOVAX) 2020-07-13 00:00:00 Completed [facility] Pneumococcal Polysaccharide, PPSV23 (PNEUMOVAX) 2020-07-13 00:00:00 Completed [facility] Pneumococcal Polysaccharide, PPSV23 (PNEUMOVAX) 2020-07-13 00:00:00 Completed [facility] Pneumococcal Polysaccharide, PPSV23 (PNEUMOVAX) 2020-07-13 00:00:00 Completed [facility] Pneumococcal Polysaccharide, PPSV23 (PNEUMOVAX) 2020-07-13 00:00:00 Completed [facility] Pneumococcal Polysaccharide, PPSV23 (PNEUMOVAX) 2020-07-13 00:00:00 Completed [facility] Pneumococcal Polysaccharide, PPSV23 (PNEUMOVAX) 2020-07-13 00:00:00 Completed [facility] Pneumococcal Polysaccharide, PPSV23 (PNEUMOVAX) 2020-07-13 00:00:00 Completed [facility] Pneumococcal Polysaccharide, PPSV23 (PNEUMOVAX) 2020-07-13 00:00:00 Completed [facility] Pneumococcal Polysaccharide, PPSV23 (PNEUMOVAX) 2020-07-13 00:00:00 Completed [facility] Pneumococcal Polysaccharide, PPSV23 (PNEUMOVAX) 2020-07-13 00:00:00 Completed [facility] Pneumococcal Polysaccharide, PPSV23 (PNEUMOVAX) 2020-07-13 00:00:00 Completed [facility] Pneumococcal Polysaccharide, PPSV23 (PNEUMOVAX) 2020-07-13 00:00:00 Completed [facility] Pneumococcal Polysaccharide, PPSV23 (PNEUMOVAX) 2020-07-13 00:00:00 Completed [facility] Pneumococcal Polysaccharide, PPSV23 (PNEUMOVAX) 2020-07-13 00:00:00 Completed [facility] Pneumococcal Polysaccharide, PPSV23 (PNEUMOVAX) 2020-07-13 00:00:00 Completed [facility] Pneumococcal Polysaccharide, PPSV23 (PNEUMOVAX) 2020-07-13 00:00:00 Completed [facility] Pneumococcal Polysaccharide, PPSV23 (PNEUMOVAX) 2020-07-13 00:00:00 Completed [facility] Pneumococcal Polysaccharide, PPSV23 (PNEUMOVAX) 2020-07-13 00:00:00 Completed [facility] Pneumococcal Polysaccharide, PPSV23 (PNEUMOVAX) 2020-07-13 00:00:00 Completed [facility] Pneumococcal Polysaccharide, PPSV23 (PNEUMOVAX) 2020-07-13 00:00:00 Completed [facility] Pneumococcal Polysaccharide, PPSV23 (PNEUMOVAX) 2020-07-13 00:00:00 Completed [facility] Pneumococcal Polysaccharide, PPSV23 (PNEUMOVAX) 2020-07-13 00:00:00 Completed [facility] Influenza Virus Vaccine Quad .5 mL IM 6+ MO 2020-05-13 00:00:00 Completed [facility] Influenza Virus Vaccine Quad .5 mL IM 6+ MO 2020-05-13 00:00:00 Completed [facility] Influenza Virus Vaccine Quad .5 mL IM 6+ MO 2020-05-13 00:00:00 Completed [facility] Influenza Virus Vaccine Quad .5 mL IM 6+ MO 2020-05-13 00:00:00 Completed [facility] Influenza Virus Vaccine Quad .5 mL IM 6+ MO 2020-05-13 00:00:00 Completed [facility] Influenza Virus Vaccine Quad .5 mL IM 6+ MO 2020-05-13 00:00:00 Completed [facility] Influenza Virus Vaccine Quad .5 mL IM 6+ MO 2020-05-13 00:00:00 Completed [facility] Influenza Virus Vaccine Quad .5 mL IM 6+ MO 2020-05-13 00:00:00 Completed [facility] Influenza Virus Vaccine Quad .5 mL IM 6+ MO 2020-05-13 00:00:00 Completed [facility] Influenza Virus Vaccine Quad .5 mL IM 6+ MO 2020-05-13 00:00:00 Completed [facility] Influenza Virus Vaccine Quad .5 mL IM 6+ MO 2020-05-13 00:00:00 Completed [facility] Influenza Virus Vaccine Quad .5 mL IM 6+ MO 2020-05-13 00:00:00 Completed [facility] Influenza Virus Vaccine Quad .5 mL IM 6+ MO 2020-05-13 00:00:00 Completed [facility] Influenza Virus Vaccine Quad .5 mL IM 6+ MO 2020-05-13 00:00:00 Completed [facility] Influenza Virus Vaccine Quad .5 mL IM 6+ MO 2020-05-13 00:00:00 Completed [facility] Influenza Virus Vaccine Quad .5 mL IM 6+ MO 2020-05-13 00:00:00 Completed [facility] Influenza Virus Vaccine Quad .5 mL IM 6+ MO 2020-05-13 00:00:00 Completed [facility] Influenza Virus Vaccine Quad .5 mL IM 6+ MO 2020-05-13 00:00:00 Completed [facility] Influenza Virus Vaccine Quad .5 mL IM 6+ MO 2020-05-13 00:00:00 Completed [facility] Influenza Virus Vaccine Quad .5 mL IM 6+ MO 2020-05-13 00:00:00 Completed [facility] Influenza Virus Vaccine Quad .5 mL IM 6+ MO 2020-05-13 00:00:00 Completed [facility] Influenza Virus Vaccine Quad .5 mL IM 6+ MO 2020-05-13 00:00:00 Completed [facility] Influenza Virus Vaccine Quad .5 mL IM 6+ MO 2020-05-13 00:00:00 Completed [facility] Influenza Virus Vaccine Quad .5 mL IM 6+ MO 2020-05-13 00:00:00 Completed [facility] Influenza Virus Vaccine Quad .5 mL IM 6+ MO 2020-05-13 00:00:00 Completed [facility] Influ[employer] Virus Vaccine Quad .5 mL IM 6+ MO 2020-05-13 00:00:00 Completed [facility] Influenza Virus Vaccine Quad .5 mL IM 6+ MO 2020-05-13 00:00:00 Completed [facility] Influ[employer] Virus Vaccine Quad .5 mL IM 6+ MO 2020-05-13 00:00:00 Completed [facility] Influ[employer] Virus Vaccine Quad .5 mL IM 6+ MO 2020-05-13 00:00:00 Completed [facility] Influ[employer] Virus Vaccine Quad .5 mL IM 6+ MO 2020-05-13 00:00:00 Completed [facility] Influ[employer] Virus Vaccine Quad .5 mL IM 6+ MO 2020-05-13 00:00:00 Completed [facility] Influ[employer] Virus Vaccine Quad .5 mL IM + MO 2020-05-13 00:00:00 Completed [facility] Influ[employer] Virus Vaccine Quad .5 mL IM 6+ MO 2020-05-13 00:00:00 Completed [facility] Influ[employer] Virus Vaccine Quad .5 mL IM 6+ MO 2020-05-13 00:00:00 Completed [facility] Influ[employer] Virus Vaccine Quad .5 mL IM 6+ MO 2020-05-13 00:00:00 Completed [facility] Influ[employer] Virus Vaccine Quad .5 mL IM 6+ MO 2020-05-13 00:00:00 Completed [facility] Influ[employer] Virus Vaccine Quad .5 mL IM 6+ MO 2020-05-13 00:00:00 Completed [facility] Influ[employer] Virus Vaccine Quad .5 mL IM 6+ MO 2020-05-13 00:00:00 Completed [facility] Influ[employer] Virus Vaccine Quad .5 mL IM 6+ MO 2020-05-13 00:00:00 Completed [facility] Influ[employer] Virus Vaccine Quad .5 mL IM 6+ MO 2020-05-13 00:00:00 Completed [facility] Influ[employer] Virus Vaccine Quad .5 mL IM 6+ MO 2020-05-13 00:00:00 Completed [facility] Influ[employer] Virus Vaccine Quad .5 mL IM 6+ MO 2020-05-13 00:00:00 Completed [facility] Influ[employer] Virus Vaccine Quad .5 mL IM 6+ MO 2020-05-13 00:00:00 Completed [facility] Influ[employer] Virus Vaccine Quad .5 mL IM 6+ MO 2020-05-13 00:00:00 Completed [facility] Influ[employer] Virus Vaccine Quad .5 mL IM 6+ MO 2020-05-13 00:00:00 Completed [facility] Influ[employer] Virus Vaccine Quad .5 mL IM + MO 2020-05-13 00:00:00 Completed [facility] Influ[employer] Virus Vaccine Quad .5 mL IM 6+ MO 2020-05-13 00:00:00 Completed [facility] Influ[employer] Virus Vaccine Quad .5 mL IM 6+ MO 2020-05-13 00:00:00 Completed [facility] Influ[employer] Virus Vaccine Quad .5 mL IM 6+ MO 2020-05-13 00:00:00 Completed [facility] Influ[employer] Virus Vaccine Quad .5 mL IM 6+ MO 2020-05-13 00:00:00 Completed [facility] Influ[employer] Vaccine Quad .5 mL IM 6+ MO 2020-05-13 00:00:00 Completed [facility] Influ[employer] Virus Vaccine Quad .5 mL IM 6+ MO 2020-05-13 00:00:00 Completed [facility] Influ[employer] Virus Vaccine Quad .5 mL IM 6+ MO 2020-05-13 00:00:00 Completed [facility] Influ[employer] Vaccine Quad .5 mL IM 6+ MO 2020-05-13 00:00:00 Completed [facility] Influ[employer] Vaccine Quad .5 mL IM 6+ MO 2020-05-13 00:00:00 Completed [facility] Influ[employer] Virus Vaccine Quad .5 mL IM 6+ MO 2020-05-13 00:00:00 Completed [facility] [employer] Vaccine Quad .5 mL IM 6+ MO 2020-05-13 00:00:00 Completed [facility] Influ[employer] Vaccine Quad .5 mL IM 6+ MO 2020-05-13 00:00:00 Completed [facility] [employer] Virus Vaccine Quad .5 mL IM 6+ MO 2020-05-13 00:00:00 Completed [facility] Influ[employer] Virus Vaccine Quad .5 mL IM 6+ MO 2020-05-13 00:00:00 Completed [facility] Influ[employer] Vaccine Quad .5 mL IM 6+ MO 2020-05-13 00:00:00 Completed [facility] Influ[employer] Virus Vaccine Quad .5 mL IM 6+ MO 2020-05-13 00:00:00 Completed [facility] Influ[employer] Virus Vaccine Quad .5 mL IM 6+ MO 2020-05-13 00:00:00 Completed [facility] [employer] Vaccine Quad .5 mL IM 6+ MO 2020-05-13 00:00:00 Completed [facility] [employer] Vaccine Quad .5 mL IM 6+ MO 2020-05-13 00:00:00 Completed [facility] [employer] Vaccine Quad .5 mL IM 6+ MO 2020-05-13 00:00:00 Completed [facility] [employer] Vaccine Quad .5 mL IM 6+ MO 2020-05-13 00:00:00 Completed [facility] [employer] Vaccine Quad .5 mL IM 6+ MO 2020-05-13 00:00:00 Completed [facility] [employer] Vaccine Quad .5 mL IM + MO 2020-05-13 00:00:00 Completed [facility] [employer] Vaccine Quad .5 mL IM 6+ MO 2020-05-13 00:00:00 Completed [facility] [employer] Vaccine Quad .5 mL IM 6+ MO 2020-05-13 00:00:00 Completed [facility] [employer] Vaccine Quad .5 mL IM 6+ MO 2020-05-13 00:00:00 Completed [facility] Influ[employer] Vaccine Quad .5 mL IM 6+ MO 2020-05-13 00:00:00 Completed [facility] Influ[employer] Vaccine Quad .5 mL IM 6+ MO 2020-05-13 00:00:00 Completed [facility] Influ[employer] Vaccine Quad .5 mL IM 6+ MO 2020-05-13 00:00:00 Completed [facility] [employer] Vaccine Quad .5 mL IM 6+ MO 2020-05-13 00:00:00 Completed [facility] [employer] Vaccine Quad .5 mL IM 6+ MO 2020-05-13 00:00:00 Completed [facility] [employer] Vaccine Quad .5 mL IM 6+ MO 2020-05-13 00:00:00 Completed [facility] Influ[employer] Virus Vaccine Quad .5 mL IM 6+ MO 2020-05-13 00:00:00 Completed [facility] Influ[employer] Vaccine Quad .5 mL IM 6+ MO 2020-05-13 00:00:00 Completed [facility] Influ[employer] Vaccine Quad .5 mL IM 6+ MO 2020-05-13 00:00:00 Completed [facility] [employer] Vaccine Quad .5 mL IM 6+ MO 2020-05-13 00:00:00 Completed [facility] Influ[employer] Vaccine Quad .5 mL IM + MO 2020-05-13 00:00:00 Completed [facility] [employer] Vaccine Quad .5 mL IM 6+ MO 2020-05-13 00:00:00 Completed [facility] Influ[employer] Virus Vaccine Quad .5 mL IM 6+ MO 2020-05-13 00:00:00 Completed [facility] Influ[employer] Vaccine Quad .5 mL IM + MO 2020-05-13 00:00:00 Completed [facility] Influ[employer] Virus Vaccine Quad .5 mL IM 6+ MO 2020-05-13 00:00:00 Completed [facility] Influ[employer] Vaccine Quad .5 mL IM 6+ MO 2020-05-13 00:00:00 Completed [facility] Influ[employer] Vaccine Quad .5 mL IM 6+ MO 2020-05-13 00:00:00 Completed [facility] Influ[employer] Vaccine Quad .5 mL IM 6+ MO 2020-05-13 00:00:00 Completed [facility] Influ[employer] Virus Vaccine Quad .5 mL IM 6+ MO 2020-05-13 00:00:00 Completed [facility] Influ[employer] Vaccine Quad .5 mL IM 6+ MO 2020-05-13 00:00:00 Completed [facility] Influ[employer] Vaccine Quad .5 mL IM 6+ MO 2020-05-13 00:00:00 Completed [facility] Influ[employer] Vaccine Quad .5 mL IM 6+ MO 2020-05-13 00:00:00 Completed [facility] Influ[employer] Vaccine Quad .5 mL IM 6+ MO 2020-05-13 00:00:00 Completed [facility] Influ[employer] Vaccine Quad .5 mL IM 6+ MO 2020-05-13 00:00:00 Completed [facility] Influ[employer] Virus Vaccine Quad .5 mL IM 6+ MO 2020-05-13 00:00:00 Completed [facility] Influ[employer] Virus Vaccine Quad .5 mL IM 6+ MO (FLUZONE/FLULAVAL/F LUARIX) 2020-05-13 00:00:00 Completed [facility] Influ[employer] Virus Vaccine Quad .5 mL IM 6+ MO (FLUZONE/FLULAVAL/F LUARIX) 2020-05-13 00:00:00 Completed [facility] Influenza Virus Vaccine Quad .5 mL IM 6+ MO (FLUZONE/FLULAVAL/F LUARIX) 2020-05-13 00:00:00 Completed [facility] Influ[employer] Virus Vaccine Quad .5 mL IM 6+ MO (FLUZONE/FLULAVAL/F LUARIX) 2020-05-13 00:00:00 Completed [facility] Influ[employer] Virus Vaccine Quad .5 mL IM 6+ MO (FLUZONE/FLULAVAL/F LUARIX) 2020-05-13 00:00:00 Completed [facility] Influ[employer] Virus Vaccine Quad .5 mL IM 6+ MO 2020-05-13 00:00:00 Completed [facility] Influ[employer] Virus Vaccine Quad .5 mL IM 6+ MO 2020-05-13 00:00:00 Completed [facility] Influ[employer] Virus Vaccine Quad .5 mL IM 6+ MO 2020-05-13 00:00:00 Completed [facility] Influ[employer] Virus Vaccine Quad .5 mL IM 6+ MO 2020-05-13 00:00:00 Completed [facility] Influ[employer] Virus Vaccine Quad .5 mL IM 6+ MO 2020-05-13 00:00:00 Completed [facility] Influ[employer] Virus Vaccine Quad .5 mL IM 6+ MO 2020-05-13 00:00:00 Completed [facility] Influ[employer] Virus Vaccine Quad .5 mL IM 6+ MO 2020-05-13 00:00:00 Completed [facility] Influ[employer] Virus Vaccine Quad .5 mL IM 6+ MO 2020-05-13 00:00:00 Completed [facility] Influ[employer] Virus Vaccine Quad .5 mL IM 6+ MO 2020-05-13 00:00:00 Completed [facility] Influ[employer] Virus Vaccine Quad .5 mL IM 6+ MO 2020-05-13 00:00:00 Completed [facility] Influ[employer] Virus Vaccine Quad .5 mL IM 6+ MO 2020-05-13 00:00:00 Completed [facility] Influ[employer] Virus Vaccine Quad .5 mL IM 6+ MO 2020-05-13 00:00:00 Completed [facility] Influ[employer] Virus Vaccine Quad .5 mL IM 6+ MO 2020-05-13 00:00:00 Completed [facility] Influ[employer] Virus Vaccine Quad .5 mL IM 6+ MO 2020-05-13 00:00:00 Completed [facility] Influ[employer] Virus Vaccine Quad .5 mL IM 6+ MO 2020-05-13 00:00:00 Completed [facility] Influ[employer] Virus Vaccine Quad .5 mL IM 6+ MO 2020-05-13 00:00:00 Completed [facility] Influ[employer] Virus Vaccine Quad .5 mL IM 6+ MO 2020-05-13 00:00:00 Completed [facility] Influ[employer] Virus Vaccine Quad .5 mL IM 6+ MO 2020-05-13 00:00:00 Completed [facility] Influ[employer] Virus Vaccine Quad .5 mL IM 6+ MO 2020-05-13 00:00:00 Completed [facility] Influ[employer] Virus Vaccine Quad .5 mL IM + MO 2020-05-13 00:00:00 Completed [facility] Influ[employer] Virus Vaccine Quad .5 mL IM 6+ MO 2020-05-13 00:00:00 Completed [facility] Influ[employer] Virus Vaccine Quad .5 mL IM 6+ MO 2020-05-13 00:00:00 Completed [facility] Influ[employer] Virus Vaccine Quad .5 mL IM 6+ MO 2020-05-13 00:00:00 Completed [facility] Influ[employer] Virus Vaccine Quad .5 mL IM 6+ MO 2020-05-13 00:00:00 Completed [facility] Influ[employer] Virus Vaccine Quad .5 mL IM 6+ MO 2020-05-13 00:00:00 Completed [facility] Influ[employer] Virus Vaccine Quad .5 mL IM 6+ MO 2020-05-13 00:00:00 Completed [facility] Influ[employer] Virus Vaccine Quad .5 mL IM 6+ MO 2020-05-13 00:00:00 Completed [facility] Influ[employer] Virus Vaccine Quad .5 mL IM 6+ MO 2020-05-13 00:00:00 Completed [facility] Influ[employer] Virus Vaccine Quad .5 mL IM 6+ MO 2020-05-13 00:00:00 Completed [facility] Influ[employer] Virus Vaccine Quad .5 mL IM 6+ MO 2020-05-13 00:00:00 Completed [facility] Influ[employer] Virus Vaccine Quad .5 mL IM 6+ MO 2020-05-13 00:00:00 Completed [facility] Influ[employer] Virus Vaccine Quad .5 mL IM 6+ MO 2020-05-13 00:00:00 Completed [facility] Influ[employer] Virus Vaccine Quad .5 mL IM 6+ MO 2020-05-13 00:00:00 Completed [facility] Influ[employer] Virus Vaccine Quad .5 mL IM 6+ MO 2020-05-13 00:00:00 Completed [facility] Influ[employer] Virus Vaccine Quad .5 mL IM 6+ MO 2020-05-13 00:00:00 Completed [facility] Influ[employer] Virus Vaccine Quad .5 mL IM 6+ MO 2020-05-13 00:00:00 Completed [facility] Influ[employer] Virus Vaccine Quad .5 mL IM 6+ MO 2020-05-13 00:00:00 Completed [facility] Influenza Virus Vaccine Quad IM 3+ YRS 2017-05-29 00:00:00 Completed [facility] Influenza Virus Vaccine Quad IM 3+ YRS 2017-05-29 00:00:00 Completed [facility] Influenza Virus Vaccine Quad IM 3+ YRS 2017-05-29 00:00:00 Completed [facility] Influenza Virus Vaccine Quad IM 3+ YRS 2017-05-29 00:00:00 Completed [facility] Influenza Virus Vaccine Quad IM 3+ YRS 2017-05-29 00:00:00 Completed [facility] Influenza Virus Vaccine Quad IM 3+ YRS 2017-05-29 00:00:00 Completed [facility] Influenza Virus Vaccine Quad IM 3+ YRS 2017-05-29 00:00:00 Completed [facility] Influ[employer] Virus Vaccine Quad IM 3+ YRS 2017-05-29 00:00:00 Completed [facility] Influ[employer] Virus Vaccine Quad IM 3+ YRS 2017-05-29 00:00:00 Completed [facility] Influ[employer] Virus Vaccine Quad IM 3+ YRS 2017-05-29 00:00:00 Completed [facility] Influenza Virus Vaccine Quad IM 3+ YRS 2017-05-29 00:00:[address] [facility] Influenza Virus Vaccine Quad IM 3+ YRS 2017-05-29 00:00:00 Completed [facility] Influenza Virus Vaccine Quad IM 3+ YRS 2017-05-29 00:00:00 Completed [facility] Influenza Virus Vaccine Quad IM 3+ YRS 2017-05-29 00:00:00 Completed [facility] Influenza Virus Vaccine Quad IM 3+ YRS 2017-05-29 00:00:00 Completed [facility] Influenza Virus Vaccine Quad IM 3+ YRS 2017-05-29 00:00:00 Completed [facility] Influenza Virus Vaccine Quad IM 3+ YRS 2017-05-29 00:00:00 Completed [facility] Influenza Virus Vaccine Quad IM 3+ YRS 2017-05-29 00:00:00 Completed [facility] Influenza Virus Vaccine Quad IM 3+ YRS 2017-05-29 00:00:00 Completed [facility] Influenza Virus Vaccine Quad IM 3+ YRS 2017-05-29 00:00:00 Completed [facility] Influenza Virus Vaccine Quad IM 3+ YRS 2017-05-29 00:00:00 Completed [facility] Influenza Virus Vaccine Quad IM 3+ YRS 2017-05-29 00:00:00 Completed [facility] Influenza Virus Vaccine Quad IM 3+ YRS 2017-05-29 00:00:00 Completed [facility] Influenza Virus Vaccine Quad IM 3+ YRS 2017-05-29 00:00:00 Completed [facility] Influenza Virus Vaccine Quad IM 3+ YRS 2017-05-29 00:00:00 Completed [facility] Influenza Virus Vaccine Quad IM 3+ YRS 2017-05-29 00:00:00 Completed [facility] Influenza Virus Vaccine Quad IM 3+ YRS 2017-05-29 00:00:00 Completed [facility] Influenza Virus Vaccine Quad IM 3+ YRS 2017-05-29 00:00:00 Completed [facility] Influenza Virus Vaccine Quad IM 3+ YRS 2017-05-29 00:00:00 Completed [facility] Influenza Virus Vaccine Quad IM 3+ YRS 2017-05-29 00:00:00 Completed [facility] Influenza Virus Vaccine Quad IM 3+ YRS 2017-05-29 00:00:00 Completed [facility] Influenza Virus Vaccine Quad IM 3+ YRS 2017-05-29 00:00:00 Completed [facility] Influenza Virus Vaccine Quad IM 3+ YRS 2017-05-29 00:00:00 Completed [facility] Influenza Virus Vaccine Quad IM 3+ YRS 2017-05-29 00:00:00 Completed [facility] Influenza Virus Vaccine Quad IM 3+ YRS 2017-05-29 00:00:00 Completed [facility] Influenza Virus Vaccine Quad IM 3+ YRS 2017-05-29 00:00:00 Completed [facility] Influenza Virus Vaccine Quad IM 3+ YRS 2017-05-29 00:00:00 Completed [facility] Influenza Virus Vaccine Quad IM 3+ YRS 2017-05-29 00:00:00 Completed [facility] Influenza Virus Vaccine Quad IM 3+ YRS 2017-05-29 00:00:00 Completed [facility] Influenza Virus Vaccine Quad IM 3+ YRS 2017-05-29 00:00:00 Completed [facility] Influenza Virus Vaccine Quad IM 3+ YRS 2017-05-29 00:00:00 Completed [facility] Influenza Virus Vaccine Quad IM 3+ YRS 2017-05-29 00:00:00 Completed [facility] Influenza Virus Vaccine Quad IM 3+ YRS 2017-05-29 00:00:00 Completed [facility] Influenza Virus Vaccine Quad IM 3+ YRS 2017-05-29 00:00:00 Completed [facility] Influ[employer] Virus Vaccine Quad IM 3+ YRS 2017-05-29 00:00:00 Completed [facility] Influ[employer] Virus Vaccine Quad IM 3+ YRS 2017-05-29 00:00:00 Completed [facility] Influenza Virus Vaccine Quad IM 3+ YRS 2017-05-29 00:00:00 Completed [facility] Influenza Virus Vaccine Quad IM 3+ YRS 2017-05-29 00:00:00 Completed [facility] Influenza Virus Vaccine Quad IM 3+ YRS 2017-05-29 00:00:00 Completed [facility] Influenza Virus Vaccine Quad IM 3+ YRS 2017-05-29 00:00:00 Completed [facility] Influenza Virus Vaccine Quad IM 3+ YRS 2017-05-29 00:00:00 Completed [facility] Influenza Virus Vaccine Quad IM 3+ YRS 2017-05-29 00:00:00 Completed [facility] Influenza Virus Vaccine Quad IM 3+ YRS 2017-05-29 00:00:00 Completed [facility] Influenza Virus Vaccine Quad IM 3+ YRS 2017-05-29 00:00:00 Completed [facility] Influenza Virus Vaccine Quad IM 3+ YRS 2017-05-29 00:00:00 Completed [facility] Influenza Virus Vaccine Quad IM 3+ YRS 2017-05-29 00:00:00 Completed [facility] Influenza Virus Vaccine Quad IM 3+ YRS 2017-05-29 00:00:00 Completed [facility] Influenza Virus Vaccine Quad IM 3+ YRS 2017-05-29 00:00:00 Completed [facility] Influenza Virus Vaccine Quad IM 3+ YRS 2017-05-29 00:00:00 Completed [facility] Influenza Virus Vaccine Quad IM 3+ YRS 2017-05-29 00:00:00 Completed [facility] Influenza Virus Vaccine Quad IM 3+ YRS 2017-05-29 00:00:00 Completed [facility] Influenza Virus Vaccine Quad IM 3+ YRS 2017-05-29 00:00:00 Completed [facility] Influenza Virus Vaccine Quad IM 3+ YRS 2017-05-29 00:00:00 Completed [facility] Influenza Virus Vaccine Quad IM 3+ YRS 2017-05-29 00:00:00 Completed [facility] Influenza Virus Vaccine Quad IM 3+ YRS 2017-05-29 00:00:00 Completed [facility] Influenza Virus Vaccine Quad IM 3+ YRS 2017-05-29 00:00:00 Completed [facility] Influenza Virus Vaccine Quad IM 3+ YRS 2017-05-29 00:00:00 Completed [facility] Influenza Virus Vaccine Quad IM 3+ YRS 2017-05-29 00:00:00 Completed [facility] Influenza Virus Vaccine Quad IM 3+ YRS 2017-05-29 00:00:00 Completed [facility] Influenza Virus Vaccine Quad IM 3+ YRS 2017-05-29 00:00:00 Completed [facility] Influenza Virus Vaccine Quad IM 3+ YRS 2017-05-29 00:00:00 Completed [facility] Influenza Virus Vaccine Quad IM 3+ YRS 2017-05-29 00:00:00 Completed [facility] Influenza Virus Vaccine Quad IM 3+ YRS 2017-05-29 00:00:00 Completed [facility] Influenza Virus Vaccine Quad IM 3+ YRS 2017-05-29 00:00:00 Completed [facility] Influ[employer] Virus Vaccine Quad IM 3+ YRS 2017-05-29 00:00:00 Completed [facility] Influ[employer] Virus Vaccine Quad IM 3+ YRS 2017-05-29 00:00:00 Completed [facility] Influ[employer] Virus Vaccine Quad IM 3+ YRS 2017-05-29 00:00:00 Completed [facility] Influ[employer] Virus Vaccine Quad IM 3+ YRS 2017-05-29 00:00:00 Completed [facility] Influ[employer] Virus Vaccine Quad IM 3+ YRS 2017-05-29 00:00:00 Completed [facility] Influ[employer] Virus Vaccine Quad IM 3+ YRS 2017-05-29 00:00:00 Completed [facility] Influ[employer] Virus Vaccine Quad IM 3+ YRS 2017-05-29 00:00:00 Completed [facility] Influ[employer] Virus Vaccine Quad IM 3+ YRS 2017-05-29 00:00:00 Completed [facility] Influ[employer] Virus Vaccine Quad IM 3+ YRS 2017-05-29 00:00:00 Completed [facility] Influ[employer] Virus Vaccine Quad IM 3+ YRS 2017-05-29 00:00:00 Completed [facility] Influ[employer] Virus Vaccine Quad IM 3+ YRS 2017-05-29 00:00:00 Completed [facility] Influ[employer] Virus Vaccine Quad IM 3+ YRS 2017-05-29 00:00:00 Completed [facility] Influ[employer] Virus Vaccine Quad IM 3+ YRS 2017-05-29 00:00:00 Completed [facility] Influ[employer] Virus Vaccine Quad IM 3+ YRS 2017-05-29 00:00:00 Completed [facility] Influ[employer] Virus Vaccine Quad IM 3+ YRS 2017-05-29 00:00:00 Completed [facility] Influ[employer] Virus Vaccine Quad IM 3+ YRS 2017-05-29 00:00:00 Completed [facility] Influ[employer] Virus Vaccine Quad IM 3+ YRS 2017-05-29 00:00:00 Completed [facility] Influ[employer] Virus Vaccine Quad IM 3+ YRS 2017-05-29 00:00:00 Completed [facility] Influ[employer] Virus Vaccine Quad IM 3+ YRS 2017-05-29 00:00:00 Completed [facility] Influ[employer] Virus Vaccine Quad IM 3+ YRS 2017-05-29 00:00:00 Completed [facility] Influ[employer] Virus Vaccine Quad IM 3+ YRS 2017-05-29 00:00:00 Completed [facility] Influ[employer] Virus Vaccine Quad IM 3+ YRS 2017-05-29 00:00:00 Completed [facility] Influ[employer] Virus Vaccine Quad IM 3+ YRS 2017-05-29 00:00:00 Completed [facility] Influ[employer] Virus Vaccine Quad IM 3+ YRS 2017-05-29 00:00:00 Completed [facility] Influ[employer] Virus Vaccine Quad IM 3+ YRS 2017-05-29 00:00:00 Completed [facility] Influ[employer] Virus Vaccine Quad IM 3+ YRS 2017-05-29 00:00:00 Completed [facility] Influ[employer] Virus Vaccine Quad IM 3+ YRS 2017-05-29 00:00:00 Completed [facility] Influ[employer] Vaccine Quad IM 3+ YRS 2017-05-29 00:00:00 Completed [facility] Influ[employer] Virus Vaccine Quad IM 3+ YRS 2017-05-29 00:00:00 Completed [facility] Influ[employer] Virus Vaccine Quad IM 3+ YRS 2017-05-29 00:00:00 Completed [facility] Influ[employer] Virus Vaccine Quad IM 3+ YRS 2017-05-29 00:00:00 Completed [facility] Influ[employer] Vaccine Quad IM 3+ YRS 2017-05-29 00:00:00 Completed [facility] Influ[employer] Vaccine Quad IM 3+ YRS 2017-05-29 00:00:00 Completed [facility] Influ[employer] Virus Vaccine Quad IM 3+ YRS 2017-05-29 00:00:00 Completed [facility] Influ[employer] Vaccine Quad IM 3+ YRS 2017-05-29 00:00:00 Completed [facility] Influ[employer] Vaccine Quad IM 3+ YRS 2017-05-29 00:00:00 Completed [facility] Influ[employer] Vaccine Quad IM 3+ YRS 2017-05-29 00:00:00 Completed [facility] Influ[employer] Virus Vaccine Quad IM 3+ YRS 2017-05-29 00:00:00 Completed [facility] Influenza Virus Vaccine Quad IM 3+ YRS 2017-05-29 00:00:00 Completed [facility] Influenza Virus Vaccine Quad IM 3+ YRS 2017-05-29 00:00:00 Completed [facility] Influ[employer] Virus Vaccine Quad IM 3+ YRS 2017-05-29 00:00:00 Completed [facility] Influ[employer] Virus Vaccine Quad IM 3+ YRS 2017-05-29 00:00:00 Completed [facility] [employer] Vaccine Quad IM 3+ YRS 2017-05-29 00:00:00 Completed [facility] Influ[employer] Vaccine Quad IM 3+ YRS 2017-05-29 00:00:00 Completed [facility] Influenza Virus Vaccine Quad IM 3+ YRS 2017-05-29 00:00:00 Completed [facility] Influenza Virus Vaccine Quad IM 3+ YRS 2017-05-29 00:00:00 Completed [facility] Influenza Virus Vaccine Quad IM 3+ YRS 2017-05-29 00:00:00 Completed [facility] Influenza Virus Vaccine Quad IM 3+ YRS 2017-05-29 00:00:00 Completed [facility] Influenza Virus Vaccine Quad IM 3+ YRS 2017-05-29 00:00:00 Completed [facility] Influenza Virus Vaccine Quad IM 3+ YRS 2017-05-29 00:00:00 Completed [facility] Influenza Virus Vaccine Quad IM 3+ YRS 2017-05-29 00:00:00 Completed [facility] Influenza Virus Vaccine Quad IM 3+ YRS 2017-05-29 00:00:00 Completed [facility] Influenza Virus Vaccine Quad IM 3+ YRS 2017-05-29 00:00:00 Completed [facility] Influenza Virus Vaccine Quad IM 3+ YRS 2017-05-29 00:00:00 Completed [facility] Influenza Virus Vaccine Quad IM 3+ YRS 2017-05-29 00:00:00 Completed [facility] Influenza Virus Vaccine Quad IM 3+ YRS 2017-05-29 00:00:00 Completed [facility] Influenza Virus Vaccine Quad IM 3+ YRS 2017-05-29 00:00:00 Completed [facility] Influenza Virus Vaccine Quad IM 3+ YRS 2017-05-29 00:00:00 Completed [facility] Influenza Virus Vaccine Quad IM 3+ YRS 2017-05-29 00:00:00 Completed [facility] Influenza Virus Vaccine Quad IM 3+ YRS 2017-05-29 00:00:00 Completed [facility] Influenza Virus Vaccine Quad IM 3+ YRS 2017-05-29 00:00:00 Completed [facility] Influenza Virus Vaccine Quad IM 3+ YRS 2017-05-29 00:00:00 Completed [facility] Influenza Virus Vaccine Quad IM 3+ YRS 2017-05-29 00:00:00 Completed [facility] Influenza Virus Vaccine Quad IM 3+ YRS 2017-05-29 00:00:00 Completed [facility] Influenza Virus Vaccine Quad IM 3+ YRS 2017-05-29 00:00:00 Completed [facility] MMR 2017-04-29 00:00:00 Completed [facility] MMR 2017-04-29 00:00:00 Completed [facility] MMR 2017-04-29 00:00:00 Completed [facility] MMR 2017-04-29 00:00:00 Completed [facility] MMR 2017-04-29 00:00:00 Completed [facility] MMR 2017-04-29 00:00:00 Completed [facility] MMR 2017-04-29 00:00:00 Completed [facility] MMR 2017-04-29 00:00:00 Completed [facility] MMR 2017-04-29 00:00:00 Completed [facility] MMR 2017-04-29 00:00:00 Completed [facility] MMR 2017-04-29 00:00:00 Completed [facility] MMR 2017-04-29 00:00:00 Completed [facility] MMR 2017-04-29 00:00:00 Completed [facility] MMR 2017-04-29 00:00:00 Completed [facility] MMR 2017-04-29 00:00:00 Completed [facility] MMR 2017-04-29 00:00:00 Completed [facility] MMR 2017-04-29 00:00:00 Completed [facility] MMR 2017-04-29 00:00:00 Completed [facility] MMR 2017-04-29 00:00:00 Completed [facility] MMR 2017-04-29 00:00:00 Completed [facility] MMR 2017-04-29 00:00:00 Completed [facility] MMR 2017-04-29 00:00:00 Completed [facility] MMR 2017-04-29 00:00:00 Completed [facility] MMR 2017-04-29 00:00:00 Completed [facility] MMR 2017-04-29 00:00:00 Completed [facility] MMR 2017-04-29 00:00:00 Completed [facility] MMR 2017-04-29 00:00:00 Completed [facility] MMR 2017-04-29 00:00:00 Completed [facility] MMR 2017-04-29 00:00:00 Completed [facility] MMR 2017-04-29 00:00:00 Completed [facility] MMR 2017-04-29 00:00:00 Completed [facility] MMR 2017-04-29 00:00:00 Completed [facility] MMR 2017-04-29 00:00:00 Completed [facility] MMR 2017-04-29 00:00:00 Completed [facility] MMR 2017-04-29 00:00:00 Completed [facility] MMR 2017-04-29 00:00:00 Completed [facility] MMR 2017-04-29 00:00:00 Completed [facility] MMR 2017-04-29 00:00:00 Completed [facility] MMR 2017-04-29 00:00:00 Completed [facility] MMR 2017-04-29 00:00:00 Completed [facility] MMR 2017-04-29 00:00:00 Completed [facility] MMR 2017-04-29 00:00:00 Completed [facility] MMR 2017-04-29 00:00:00 Completed [facility] MMR 2017-04-29 00:00:00 Completed [facility] MMR 2017-04-29 00:00:00 Completed [facility] MMR 2017-04-29 00:00:00 Completed [facility] MMR 2017-04-29 00:00:00 Completed [facility] MMR 2017-04-29 00:00:00 Completed [facility] MMR 2017-04-29 00:00:00 Completed [facility] MMR 2017-04-29 00:00:00 Completed [facility] MMR 2017-04-29 00:00:00 Completed [facility] MMR 2017-04-29 00:00:00 Completed [facility] MMR 2017-04-29 00:00:00 Completed [facility] MMR 2017-04-29 00:00:00 Completed [facility] MMR 2017-04-29 00:00:00 Completed [facility] MMR 2017-04-29 00:00:00 Completed [facility] MMR 2017-04-29 00:00:00 Completed [facility] MMR 2017-04-29 00:00:00 Completed [facility] MMR 2017-04-29 00:00:00 Completed [facility] MMR 2017-04-29 00:00:00 Completed [facility] MMR 2017-04-29 00:00:00 Completed [facility] MMR 2017-04-29 00:00:00 Completed [facility] MMR 2017-04-29 00:00:00 Completed [facility] MMR 2017-04-29 00:00:00 Completed [facility] MMR 2017-04-29 00:00:00 Completed [facility] MMR 2017-04-29 00:00:00 Completed [facility] MMR 2017-04-29 00:00:00 Completed [facility] MMR 2017-04-29 00:00:00 Completed [facility] MMR 2017-04-29 00:00:00 Completed [facility] MMR 2017-04-29 00:00:00 Completed [facility] MMR 2017-04-29 00:00:00 Completed [facility] MMR 2017-04-29 00:00:00 Completed [facility] MMR 2017-04-29 00:00:00 Completed [facility] MMR 2017-04-29 00:00:00 Completed [facility] MMR 2017-04-29 00:00:00 Completed [facility] MMR 2017-04-29 00:00:00 Completed [facility] MMR 2017-04-29 00:00:00 Completed [facility] MMR 2017-04-29 00:00:00 Completed [facility] MMR 2017-04-29 00:00:00 Completed [facility] MMR 2017-04-29 00:00:00 Completed [facility] MMR 2017-04-29 00:00:00 Completed [facility] MMR 2017-04-29 00:00:00 Completed [facility] MMR 2017-04-29 00:00:00 Completed [facility] MMR 2017-04-29 00:00:00 Completed [facility] MMR 2017-04-29 00:00:00 Completed [facility] MMR 2017-04-29 00:00:00 Completed [facility] MMR 2017-04-29 00:00:00 Completed [facility] MMR 2017-04-29 00:00:00 Completed [facility] MMR 2017-04-29 00:00:00 Completed [facility] MMR 2017-04-29 00:00:00 Completed [facility] MMR 2017-04-29 00:00:00 Completed [facility] MMR 2017-04-29 00:00:00 Completed [facility] MMR 2017-04-29 00:00:00 Completed [facility] MMR 2017-04-29 00:00:00 Completed [facility] MMR 2017-04-29 00:00:00 Completed [facility] MMR 2017-04-29 00:00:00 Completed [facility] MMR 2017-04-29 00:00:00 Completed [facility] MMR 2017-04-29 00:00:00 Completed [facility] MMR 2017-04-29 00:00:00 Completed [facility] MMR 2017-04-29 00:00:00 Completed [facility] MMR 2017-04-29 00:00:00 Completed [facility] MMR 2017-04-29 00:00:00 Completed [facility] MMR 2017-04-29 00:00:00 Completed [facility] MMR 2017-04-29 00:00:00 Completed [facility] MMR 2017-04-29 00:00:00 Completed [facility] MMR 2017-04-29 00:00:00 Completed [facility] MMR 2017-04-29 00:00:00 Completed [facility] MMR 2017-04-29 00:00:00 Completed [facility] MMR 2017-04-29 00:00:00 Completed [facility] MMR 2017-04-29 00:00:00 Completed [facility] MMR 2017-04-29 00:00:00 Completed [facility] MMR 2017-04-29 00:00:00 Completed [facility] MMR 2017-04-29 00:00:00 Completed [facility] MMR 2017-04-29 00:00:00 Completed [facility] MMR 2017-04-29 00:00:00 Completed [facility] MMR 2017-04-29 00:00:00 Completed [facility] MMR 2017-04-29 00:00:00 Completed [facility] MMR 2017-04-29 00:00:00 Completed [facility] MMR 2017-04-29 00:00:00 Completed [facility] MMR 2017-04-29 00:00:00 Completed [facility] MMR 2017-04-29 00:00:00 Completed [facility] MMR 2017-04-29 00:00:00 Completed [facility] MMR 2017-04-29 00:00:00 Completed [facility] MMR 2017-04-29 00:00:00 Completed [facility] MMR 2017-04-29 00:00:00 Completed [facility] MMR 2017-04-29 00:00:00 Completed [facility] MMR 2017-04-29 00:00:00 Completed [facility] MMR 2017-04-29 00:00:00 Completed [facility] MMR 2017-04-29 00:00:00 Completed [facility] MMR 2017-04-29 00:00:00 Completed [facility] MMR 2017-04-29 00:00:00 Completed [facility] MMR 2017-04-29 00:00:00 Completed [facility] MMR 2017-04-29 00:00:00 Completed [facility] MMR 2017-04-29 00:00:00 Completed [facility] MMR 2017-04-29 00:00:00 Completed [facility] MMR 2017-04-29 00:00:00 Completed [facility] MMR 2017-04-29 00:00:00 Completed [facility] MMR 2017-04-29 00:00:00 Completed [facility] MMR 2017-04-29 00:00:00 Completed [facility] TDAP 2017-02-28 00:00:00 Completed [facility] TDAP 2017-02-28 00:00:00 Completed [facility] TDAP 2017-02-28 00:00:00 Completed [facility] TDAP 2017-02-28 00:00:00 Completed [facility] TDAP 2017-02-28 00:00:00 Completed [facility] TDAP 2017-02-28 00:00:00 Completed [facility] TDAP 2017-02-28 00:00:00 Completed [facility] TDAP 2017-02-28 00:00:00 Completed [facility] TDAP 2017-02-28 00:00:00 Completed [facility] TDAP 2017-02-28 00:00:00 Completed [facility] TDAP 2017-02-28 00:00:00 Completed [facility] TDAP 2017-02-28 00:00:00 Completed [facility] TDAP 2017-02-28 00:00:00 Completed [facility] TDAP 2017-02-28 00:00:00 Completed [facility] TDAP 2017-02-28 00:00:00 Completed [facility] TDAP 2017-02-28 00:00:00 Completed [facility] TDAP 2017-02-28 00:00:00 Completed [facility] TDAP 2017-02-28 00:00:00 Completed [facility] TDAP 2017-02-28 00:00:00 Completed [facility] TDAP 2017-02-28 00:00:00 Completed [facility] TDAP 2017-02-28 00:00:00 Completed [facility] TDAP 2017-02-28 00:00:00 Completed [facility] TDAP 2017-02-28 00:00:00 Completed [facility] TDAP 2017-02-28 00:00:00 Completed [facility] TDAP 2017-02-28 00:00:00 Completed [facility] TDAP 2017-02-28 00:00:00 Completed [facility] TDAP 2017-02-28 00:00:00 Completed [facility] TDAP 2017-02-28 00:00:00 Completed [facility] TDAP 2017-02-28 00:00:00 Completed [facility] TDAP 2017-02-28 00:00:00 Completed [facility] TDAP 2017-02-28 00:00:00 Completed [facility] TDAP 2017-02-28 00:00:00 Completed [facility] TDAP 2017-02-28 00:00:00 Completed [facility] TDAP 2017-02-28 00:00:00 Completed [facility] TDAP 2017-02-28 00:00:00 Completed [facility] TDAP 2017-02-28 00:00:00 Completed [facility] TDAP 2017-02-28 00:00:00 Completed [facility] TDAP 2017-02-28 00:00:00 Completed [facility] TDAP 2017-02-28 00:00:00 Completed [facility] TDAP 2017-02-28 00:00:00 Completed [facility] TDAP 2017-02-28 00:00:00 Completed [facility] TDAP 2017-02-28 00:00:00 Completed [facility] TDAP 2017-02-28 00:00:00 Completed [facility] TDAP 2017-02-28 00:00:00 Completed [facility] TDAP 2017-02-28 00:00:00 Completed [facility] TDAP 2017-02-28 00:00:00 Completed [facility] TDAP 2017-02-28 00:00:00 Completed [facility] TDAP 2017-02-28 00:00:00 Completed [facility] TDAP 2017-02-28 00:00:00 Completed [facility] TDAP 2017-02-28 00:00:00 Completed [facility] TDAP 2017-02-28 00:00:00 Completed [facility] TDAP 2017-02-28 00:00:00 Completed [facility] TDAP 2017-02-28 00:00:00 Completed [facility] TDAP 2017-02-28 00:00:00 Completed [facility] TDAP 2017-02-28 00:00:00 Completed [facility] TDAP 2017-02-28 00:00:00 Completed [facility] TDAP 2017-02-28 00:00:00 Completed [facility] TDAP 2017-02-28 00:00:00 Completed [facility] TDAP 2017-02-28 00:00:00 Completed [facility] TDAP 2017-02-28 00:00:00 Completed [facility] TDAP 2017-02-28 00:00:00 Completed [facility] TDAP 2017-02-28 00:00:00 Completed [facility] TDAP 2017-02-28 00:00:00 Completed [facility] TDAP 2017-02-28 00:00:00 Completed [facility] TDAP 2017-02-28 00:00:00 Completed [facility] TDAP 2017-02-28 00:00:00 Completed [facility] TDAP 2017-02-28 00:00:00 Completed [facility] TDAP 2017-02-28 00:00:00 Completed [facility] TDAP 2017-02-28 00:00:00 Completed [facility] TDAP 2017-02-28 00:00:00 Completed [facility] TDAP 2017-02-28 00:00:00 Completed [facility] TDAP 2017-02-28 00:00:00 Completed [facility] TDAP 2017-02-28 00:00:00 Completed [facility] TDAP 2017-02-28 00:00:00 Completed [facility] TDAP 2017-02-28 00:00:00 Completed [facility] TDAP 2017-02-28 00:00:00 Completed [facility] TDAP 2017-02-28 00:00:00 Completed [facility] TDAP 2017-02-28 00:00:00 Completed [facility] TDAP 2017-02-28 00:00:00 Completed [facility] TDAP 2017-02-28 00:00:00 Completed [facility] TDAP 2017-02-28 00:00:00 Completed [facility] TDAP 2017-02-28 00:00:00 Completed [facility] TDAP 2017-02-28 00:00:00 Completed [facility] TDAP 2017-02-28 00:00:00 Completed [facility] TDAP 2017-02-28 00:00:00 Completed [facility] TDAP 2017-02-28 00:00:00 Completed [facility] TDAP 2017-02-28 00:00:00 Completed [facility] TDAP 2017-02-28 00:00:00 Completed [facility] TDAP 2017-02-28 00:00:00 Completed [facility] TDAP 2017-02-28 00:00:00 Completed [facility] TDAP 2017-02-28 00:00:00 Completed [facility] TDAP 2017-02-28 00:00:00 Completed [facility] TDAP 2017-02-28 00:00:00 Completed [facility] TDAP 2017-02-28 00:00:00 Completed [facility] TDAP 2017-02-28 00:00:00 Completed [facility] TDAP 2017-02-28 00:00:00 Completed [facility] TDAP 2017-02-28 00:00:00 Completed [facility] TDAP 2017-02-28 00:00:00 Completed [facility] TDAP 2017-02-28 00:00:00 Completed [facility] TDAP 2017-02-28 00:00:00 Completed [facility] TDAP 2017-02-28 00:00:00 Completed [facility] TDAP 2017-02-28 00:00:00 Completed [facility] TDAP 2017-02-28 00:00:00 Completed [facility] TDAP 2017-02-28 00:00:00 Completed [facility] TDAP 2017-02-28 00:00:00 Completed [facility] TDAP 2017-02-28 00:00:00 Completed [facility] TDAP 2017-02-28 00:00:00 Completed [facility] TDAP 2017-02-28 00:00:00 Completed [facility] TDAP 2017-02-28 00:00:00 Completed [facility] TDAP 2017-02-28 00:00:00 Completed [facility] TDAP 2017-02-28 00:00:00 Completed [facility] TDAP 2017-02-28 00:00:00 Completed [facility] TDAP 2017-02-28 00:00:00 Completed [facility] TDAP 2017-02-28 00:00:00 Completed [facility] TDAP 2017-02-28 00:00:00 Completed [facility] TDAP 2017-02-28 00:00:00 Completed [facility] TDAP 2017-02-28 00:00:00 Completed [facility] TDAP 2017-02-28 00:00:00 Completed [facility] TDAP 2017-02-28 00:00:00 Completed [facility] TDAP 2017-02-28 00:00:00 Completed [facility] TDAP 2017-02-28 00:00:00 Completed [facility] TDAP 2017-02-28 00:00:00 Completed [facility] TDAP 2017-02-28 00:00:00 Completed [facility] TDAP 2017-02-28 00:00:00 Completed [facility] TDAP 2017-02-28 00:00:00 Completed [facility] TDAP 2017-02-28 00:00:00 Completed [facility] TDAP 2017-02-28 00:00:00 Completed [facility] TDAP 2017-02-28 00:00:00 Completed [facility] TDAP 2017-02-28 00:00:00 Completed [facility] TDAP 2017-02-28 00:00:00 Completed [facility] TDAP 2017-02-28 00:00:00 Completed [facility] TDAP 2017-02-28 00:00:00 Completed [facility] TDAP 2017-02-28 00:00:00 Completed [facility] TDAP 2017-02-28 00:00:00 Completed [facility] TDAP 2017-02-28 00:00:00 Completed [facility] TDAP 2017-02-28 00:00:00 Completed [facility] TDAP 2017-02-28 00:00:00 Completed [facility] TDAP 2017-02-28 00:00:00 Completed [facility] TDAP 2017-02-28 00:00:00 Completed [facility] TDAP 2012-08-26 00:00:00 Completed [facility] TDAP 2012-08-26 00:00:00 Completed [facility] TDAP 2012-08-26 00:00:00 Completed [facility] TDAP 2012-08-26 00:00:00 Completed [facility] TDAP 2012-08-26 00:00:00 Completed [facility] TDAP 2012-08-26 00:00:00 Completed [facility] TDAP 2012-08-26 00:00:00 Completed [facility] TDAP 2012-08-26 00:00:00 Completed [facility] TDAP 2012-08-26 00:00:00 Completed [facility] TDAP 2012-08-26 00:00:00 Completed [facility] TDAP 2012-08-26 00:00:00 Completed [facility] TDAP 2012-08-26 00:00:00 Completed [facility] TDAP 2012-08-26 00:00:00 Completed [facility] TDAP 2012-08-26 00:00:00 Completed [facility] TDAP 2012-08-26 00:00:00 Completed [facility] TDAP 2012-08-26 00:00:00 Completed [facility] TDAP 2012-08-26 00:00:00 Completed [facility] TDAP 2012-08-26 00:00:00 Completed [facility] TDAP 2012-08-26 00:00:00 Completed [facility] TDAP 2012-08-26 00:00:00 Completed [facility] TDAP 2012-08-26 00:00:00 Completed [facility] TDAP 2012-08-26 00:00:00 Completed [facility] TDAP 2012-08-26 00:00:00 Completed [facility] TDAP 2012-08-26 00:00:00 Completed [facility] TDAP 2012-08-26 00:00:00 Completed [facility] TDAP 2012-08-26 00:00:00 Completed [facility] TDAP 2012-08-26 00:00:00 Completed [facility] TDAP 2012-08-26 00:00:00 Completed [facility] TDAP 2012-08-26 00:00:00 Completed [facility] TDAP 2012-08-26 00:00:00 Completed [facility] TDAP 2012-08-26 00:00:00 Completed [facility] TDAP 2012-08-26 00:00:00 Completed [facility] TDAP 2012-08-26 00:00:00 Completed [facility] TDAP 2012-08-26 00:00:00 Completed [facility] TDAP 2012-08-26 00:00:00 Completed [facility] TDAP 2012-08-26 00:00:00 Completed [facility] TDAP 2012-08-26 00:00:00 Completed [facility] TDAP 2012-08-26 00:00:00 Completed [facility] TDAP 2012-08-26 00:00:00 Completed [facility] TDAP 2012-08-26 00:00:00 Completed [facility] TDAP 2012-08-26 00:00:00 Completed [facility] TDAP 2012-08-26 00:00:00 Completed [facility] TDAP 2012-08-26 00:00:00 Completed [facility] TDAP 2012-08-26 00:00:00 Completed [facility] TDAP 2012-08-26 00:00:00 Completed [facility] TDAP 2012-08-26 00:00:00 Completed [facility] TDAP 2012-08-26 00:00:00 Completed [facility] TDAP 2012-08-26 00:00:00 Completed [facility] TDAP 2012-08-26 00:00:00 Completed [facility] TDAP 2012-08-26 00:00:00 Completed [facility] TDAP 2012-08-26 00:00:00 Completed [facility] TDAP 2012-08-26 00:00:00 Completed [facility] TDAP 2012-08-26 00:00:00 Completed [facility] TDAP 2012-08-26 00:00:00 Completed [facility] TDAP 2012-08-26 00:00:00 Completed [facility] TDAP 2012-08-26 00:00:00 Completed [facility] TDAP 2012-08-26 00:00:00 Completed [facility] TDAP 2012-08-26 00:00:00 Completed [facility] TDAP 2012-08-26 00:00:00 Completed [facility] TDAP 2012-08-26 00:00:00 Completed [facility] TDAP 2012-08-26 00:00:00 Completed [facility] TDAP 2012-08-26 00:00:00 Completed [facility] TDAP 2012-08-26 00:00:00 Completed [facility] TDAP 2012-08-26 00:00:00 Completed [facility] TDAP 2012-08-26 00:00:00 Completed [facility] TDAP 2012-08-26 00:00:00 Completed [facility] TDAP 2012-08-26 00:00:00 Completed [facility] TDAP 2012-08-26 00:00:00 Completed [facility] TDAP 2012-08-26 00:00:00 Completed [facility] TDAP 2012-08-26 00:00:00 Completed [facility] TDAP 2012-08-26 00:00:00 Completed [facility] TDAP 2012-08-26 00:00:00 Completed [facility] TDAP 2012-08-26 00:00:00 Completed [facility] TDAP 2012-08-26 00:00:00 Completed [facility] TDAP 2012-08-26 00:00:00 Completed [facility] TDAP 2012-08-26 00:00:00 Completed [facility] TDAP 2012-08-26 00:00:00 Completed [facility] TDAP 2012-08-26 00:00:00 Completed [facility] TDAP 2012-08-26 00:00:00 Completed [facility] TDAP 2012-08-26 00:00:00 Completed [facility] TDAP 2012-08-26 00:00:00 Completed [facility] TDAP 2012-08-26 00:00:00 Completed [facility] TDAP 2012-08-26 00:00:00 Completed [facility] TDAP 2012-08-26 00:00:00 Completed [facility] TDAP 2012-08-26 00:00:00 Completed [facility] TDAP 2012-08-26 00:00:00 Completed [facility] TDAP 2012-08-26 00:00:00 Completed [facility] TDAP 2012-08-26 00:00:00 Completed [facility] TDAP 2012-08-26 00:00:00 Completed [facility] TDAP 2012-08-26 00:00:00 Completed [facility] TDAP 2012-08-26 00:00:00 Completed [facility] TDAP 2012-08-26 00:00:00 Completed [facility] TDAP 2012-08-26 00:00:00 Completed [facility] TDAP 2012-08-26 00:00:00 Completed [facility] TDAP 2012-08-26 00:00:00 Completed [facility] TDAP 2012-08-26 00:00:00 Completed [facility] TDAP 2012-08-26 00:00:00 Completed [facility] TDAP 2012-08-26 00:00:00 Completed [facility] TDAP 2012-08-26 00:00:00 Completed [facility] TDAP 2012-08-26 00:00:00 Completed [facility] TDAP 2012-08-26 00:00:00 Completed [facility] TDAP 2012-08-26 00:00:00 Completed [facility] TDAP 2012-08-26 00:00:00 Completed [facility] TDAP 2012-08-26 00:00:00 Completed [facility] TDAP 2012-08-26 00:00:00 Completed [facility] TDAP 2012-08-26 00:00:00 Completed [facility] TDAP 2012-08-26 00:00:00 Completed [facility] TDAP 2012-08-26 00:00:00 Completed [facility] TDAP 2012-08-26 00:00:00 Completed [facility] TDAP 2012-08-26 00:00:00 Completed [facility] TDAP 2012-08-26 00:00:00 Completed [facility] TDAP 2012-08-26 00:00:00 Completed [facility] TDAP 2012-08-26 00:00:00 Completed [facility] TDAP 2012-08-26 00:00:00 Completed [facility] TDAP 2012-08-26 00:00:00 Completed [facility] TDAP 2012-08-26 00:00:00 Completed [facility] TDAP 2012-08-26 00:00:00 Completed [facility] TDAP 2012-08-26 00:00:00 Completed [facility] TDAP 2012-08-26 00:00:00 Completed [facility] TDAP 2012-08-26 00:00:00 Completed [facility] TDAP 2012-08-26 00:00:00 Completed [facility] TDAP 2012-08-26 00:00:00 Completed [facility] TDAP 2012-08-26 00:00:00 Completed [facility] TDAP 2012-08-26 00:00:00 Completed [facility] TDAP 2012-08-26 00:00:00 Completed [facility] TDAP 2012-08-26 00:00:00 Completed [facility] TDAP 2012-08-26 00:00:00 Completed [facility] TDAP 2012-08-26 00:00:00 Completed [facility] TDAP 2012-08-26 00:00:00 Completed [facility] TDAP 2012-08-26 00:00:00 Completed [facility] TDAP 2012-08-26 00:00:00 Completed [facility] TDAP 2012-08-26 00:00:00 Completed [facility] TDAP 2012-08-26 00:00:00 Completed [facility] TDAP 2012-08-26 00:00:00 Completed [facility] TDAP 2012-08-26 00:00:00 Completed [facility] TDAP 2012-08-26 00:00:00 Completed [facility] TDAP 2012-08-26 00:00:00 Completed [facility] TDAP 2012-08-26 00:00:00 Completed [facility] TDAP 2012-08-26 00:00:00 Completed [facility] TDAP Unknown Completed [facility] MMR Unknown Completed [facility] Influenza Virus Vaccine Quad IM 3+ YRS Unknown Completed [facility] Pneumococcal Polysaccharide, PPSV23 (PNEUMOVAX) Unknown Completed [facility] Influenza Virus Vaccine Unknown Completed [facility] TDAP Unknown Completed [facility] MMR Unknown Completed [facility] Influenza Virus Vaccine Quad IM 3+ YRS Unknown Completed [facility] Pneumococcal Polysaccharide, PPSV23 (PNEUMOVAX) Unknown Completed [facility] Influenza Virus Vaccine Unknown Completed [facility] TDAP Unknown Completed [facility] MMR Unknown Completed [facility] Influenza Virus Vaccine Quad IM 3+ YRS Unknown Completed [facility] Pneumococcal Polysaccharide, PPSV23 (PNEUMOVAX) Unknown Completed [facility] Influenza Virus Vaccine Unknown Completed [facility] TDAP Unknown Completed [facility] MMR Unknown Completed [facility] Influenza Virus Vaccine Quad IM 3+ YRS Unknown Completed [facility] Pneumococcal Polysaccharide, PPSV23 (PNEUMOVAX) Unknown Completed [facility] Influenza Virus Vaccine Unknown Completed [facility] TDAP Unknown Completed [facility] MMR Unknown Completed [facility] Influenza Virus Vaccine Quad IM 3+ YRS Unknown Completed [facility] Pneumococcal Polysaccharide, PPSV23 (PNEUMOVAX) Unknown Completed [facility] Influenza Virus Vaccine Unknown Completed [facility] TDAP Unknown Completed [facility] MMR Unknown Completed [facility] Influenza Virus Vaccine Quad IM 3+ YRS Unknown Completed [facility] Pneumococcal Polysaccharide, PPSV23 (PNEUMOVAX) Unknown Completed [facility] Influenza Virus Vaccine Unknown Completed [facility] TDAP Unknown Completed [facility] MMR Unknown Completed [facility] Influenza Virus Vaccine Quad IM 3+ YRS Unknown Completed [facility] Pneumococcal Polysaccharide, PPSV23 (PNEUMOVAX) Unknown Completed [facility] Influenza Virus Vaccine Unknown Completed [facility] TDAP Unknown Completed [facility] MMR Unknown Completed [facility] Influenza Virus Vaccine Quad IM 3+ YRS Unknown Completed [facility] Pneumococcal Polysaccharide, PPSV23 (PNEUMOVAX) Unknown Completed [facility] Influenza Virus Vaccine Unknown Completed [facility] TDAP Unknown Completed [facility] MMR Unknown Completed [facility] Influenza Virus Vaccine Quad IM 3+ YRS Unknown Completed [facility] Pneumococcal Polysaccharide, PPSV23 (PNEUMOVAX) Unknown Completed [facility] Influenza Virus Vaccine Unknown Completed [facility] TDAP Unknown Completed [facility] MMR Unknown Completed [facility] Influenza Virus Vaccine Quad IM 3+ YRS Unknown Completed [facility] Pneumococcal Polysaccharide, PPSV23 (PNEUMOVAX) Unknown Completed [facility] Influenza Virus Vaccine Unknown Completed [facility] TDAP Unknown Completed [facility] MMR Unknown Completed [facility] Influenza Virus Vaccine Quad IM 3+ YRS Unknown Completed [facility] Pneumococcal Polysaccharide, PPSV23 (PNEUMOVAX) Unknown Completed [facility] Influenza Virus Vaccine Unknown Completed [facility] TDAP Unknown Completed [facility] MMR Unknown Completed [facility] Influenza Virus Vaccine Quad IM 3+ YRS Unknown Completed [facility] Pneumococcal Polysaccharide, PPSV23 (PNEUMOVAX) Unknown Completed [facility] TDAP Unknown Completed [facility] MMR Unknown Completed [facility] Influenza Virus Vaccine Quad IM 3+ YRS Unknown Completed [facility] Pneumococcal Polysaccharide, PPSV23 (PNEUMOVAX) Unknown Completed [facility] TDAP Unknown Completed [facility] MMR Unknown Completed [facility] Influenza Virus Vaccine Quad IM 3+ YRS Unknown Completed [facility] Pneumococcal Polysaccharide, PPSV23 (PNEUMOVAX) Unknown Completed [facility] TDAP Unknown Completed [facility] MMR Unknown Completed [facility] Influenza Virus Vaccine Quad IM 3+ YRS Unknown Completed [facility] Pneumococcal Polysaccharide, PPSV23 (PNEUMOVAX) Unknown Completed [facility] TDAP Unknown Completed [facility] MMR Unknown Completed [facility] Influenza Virus Vaccine Quad IM 3+ YRS Unknown Completed [facility] Pneumococcal Polysaccharide, PPSV23 (PNEUMOVAX) Unknown Completed [facility] TDAP Unknown Completed [facility] MMR Unknown Completed [facility] Influenza Virus Vaccine Quad IM 3+ YRS Unknown Completed [facility] Pneumococcal Polysaccharide, PPSV23 (PNEUMOVAX) Unknown Completed [facility] TDAP Unknown Completed [facility] MMR Unknown Completed [facility] Influenza Virus Vaccine Quad IM 3+ YRS Unknown Completed [facility] Pneumococcal Polysaccharide, PPSV23 (PNEUMOVAX) Unknown Completed [facility] TDAP Unknown Completed [facility] MMR Unknown Completed [facility] Influenza Virus Vaccine Quad IM 3+ YRS Unknown Completed [facility] Pneumococcal Polysaccharide, PPSV23 (PNEUMOVAX) Unknown Completed [facility] TDAP Unknown Completed [facility] MMR Unknown Completed [facility] Influenza Virus Vaccine Quad IM 3+ YRS Unknown Completed [facility] Pneumococcal Polysaccharide, PPSV23 (PNEUMOVAX) Unknown Completed [facility] TDAP Unknown Completed [facility] MMR Unknown Completed [facility] Influenza Virus Vaccine Quad IM 3+ YRS Unknown Completed [facility] Pneumococcal Polysaccharide, PPSV23 (PNEUMOVAX) Unknown Completed [facility] TDAP Unknown Completed [facility] MMR Unknown Completed [facility] Influenza Virus Vaccine Quad IM 3+ YRS Unknown Completed [facility] Pneumococcal Polysaccharide, PPSV23 (PNEUMOVAX) Unknown Completed [facility] TDAP Unknown Completed [facility] MMR Unknown Completed [facility] Influenza Virus Vaccine Quad IM 3+ YRS Unknown Completed [facility] Pneumococcal Polysaccharide, PPSV23 (PNEUMOVAX) Unknown Completed [facility] TDAP Unknown Completed [facility] MMR Unknown Completed [facility] Influenza Virus Vaccine Quad IM 3+ YRS Unknown Completed [facility] TDAP Unknown Completed [facility] MMR Unknown Completed [facility] Influenza Virus Vaccine Quad IM 3+ YRS Unknown Completed [facility] TDAP Unknown Completed [facility] MMR Unknown Completed [facility] Influenza Virus Vaccine Quad IM 3+ YRS Unknown Completed [facility] TDAP Unknown Completed [facility] MMR Unknown Completed [facility] Influenza Virus Vaccine Quad IM 3+ YRS Unknown Completed [facility] TDAP Unknown Completed [facility] MMR Unknown Completed [facility] Influenza Virus Vaccine Quad IM 3+ YRS Unknown Completed [facility] Pneumococcal Polysaccharide, PPSV23 (PNEUMOVAX) Unknown Completed [facility] Influenza Virus Vaccine Unknown Completed [facility] TDAP Unknown Completed [facility] MMR Unknown Completed [facility] Influenza Virus Vaccine Quad IM 3+ YRS Unknown Completed [facility] Pneumococcal Polysaccharide, PPSV23 (PNEUMOVAX) Unknown Completed [facility] Influenza Virus Vaccine Unknown Completed [facility] TDAP Unknown Completed [facility] MMR Unknown Completed [facility] Influenza Virus Vaccine Quad IM 3+ YRS Unknown Completed [facility] Pneumococcal Polysaccharide, PPSV23 (PNEUMOVAX) Unknown Completed [facility] Influenza Virus Vaccine Unknown Completed [facility] TDAP Unknown Completed [facility] MMR Unknown Completed [facility] Influenza Virus Vaccine Quad IM 3+ YRS Unknown Completed [facility] Pneumococcal Polysaccharide, PPSV23 (PNEUMOVAX) Unknown Completed [facility] Influenza Virus Vaccine Unknown Completed [facility] TDAP Unknown Completed [facility] MMR Unknown Completed [facility] Influenza Virus Vaccine Quad IM 3+ YRS Unknown Completed [facility] Pneumococcal Polysaccharide, PPSV23 (PNEUMOVAX) Unknown Completed [facility] Influenza Virus Vaccine Unknown Completed [facility] Influenza Virus Vaccine Quad IM, Preserv and ABX Free 6 MO-64 YRS (FLUCELVAX) Unknown Completed [facility] TDAP Unknown Completed [facility] MMR Unknown Completed [facility] Influenza Virus Vaccine Quad IM 3+ YRS Unknown Completed [facility] Pneumococcal Polysaccharide, PPSV23 (PNEUMOVAX) Unknown Completed [facility] Influenza Virus Vaccine Unknown Completed [facility] Influenza Virus Vaccine Quad IM, Preserv and ABX Free 6 MO-64 YRS (FLUCELVAX) Unknown Completed [facility] TDAP Unknown Completed [facility] MMR Unknown Completed [facility] Influenza Virus Vaccine Quad IM 3+ YRS Unknown Completed [facility] Pneumococcal Polysaccharide, PPSV23 (PNEUMOVAX) Unknown Completed [facility] Influenza Virus Vaccine Unknown Completed [facility] TDAP Unknown Completed [facility] MMR Unknown Completed [facility] Influenza Virus Vaccine Quad IM 3+ YRS Unknown Completed [facility] Pneumococcal Polysaccharide, PPSV23 (PNEUMOVAX) Unknown Completed [facility] Influenza Virus Vaccine Unknown Completed [facility] Influenza Virus Vaccine Quad IM, Preserv and ABX Free 6 MO-64 YRS (FLUCELVAX) Unknown Completed [facility] TDAP Unknown Completed [facility] MMR Unknown Completed [facility] Influenza Virus Vaccine Quad IM 3+ YRS Unknown Completed [facility] Pneumococcal Polysaccharide, PPSV23 (PNEUMOVAX) Unknown Completed [facility] Influenza Virus Vaccine Unknown Completed [facility] Influenza Virus Vaccine Quad IM, Preserv and ABX Free 6 MO-64 YRS (FLUCELVAX) Unknown Completed [facility] TDAP Unknown Completed [facility] MMR Unknown Completed [facility] Influenza Virus Vaccine Quad IM 3+ YRS Unknown Completed [facility] Pneumococcal Polysaccharide, PPSV23 (PNEUMOVAX) Unknown Completed [facility] Influenza Virus Vaccine Unknown Completed [facility] Influenza Virus Vaccine Quad IM, Preserv and ABX Free 6 MO-64 YRS (FLUCELVAX) Unknown Completed [facility] MMR Unknown Completed [facility] Influenza Virus Vaccine Unknown Completed [facility] Influenza Virus Vaccine Quad IM, Preserv and ABX Free 6 MO-64 YRS (FLUCELVAX) Unknown Completed [facility] TDAP Unknown Completed [facility] Influenza Virus Vaccine Quad IM 3+ YRS Unknown Completed [facility] Pneumococcal Polysaccharide, PPSV23 (PNEUMOVAX) Unknown Completed [facility] TDAP Unknown Completed [facility] MMR Unknown Completed [facility] Influenza Virus Vaccine Quad IM 3+ YRS Unknown Completed [facility] Pneumococcal Polysaccharide, PPSV23 (PNEUMOVAX) Unknown Completed [facility] Influenza Virus Vaccine Unknown Completed [facility] TDAP Unknown Completed [facility] MMR Unknown Completed [facility] Influenza Virus Vaccine Quad IM 3+ YRS Unknown Completed [facility] Pneumococcal Polysaccharide, PPSV23 (PNEUMOVAX) Unknown Completed [facility] Influenza Virus Vaccine Unknown Completed [facility] Influenza Virus Vaccine Quad IM, Preserv and ABX Free 6 MO-64 YRS (FLUCELVAX) Unknown Completed [facility] TDAP Unknown Completed [facility] MMR Unknown Completed [facility] Influenza Virus Vaccine Quad IM 3+ YRS Unknown Completed [facility] Pneumococcal Polysaccharide, PPSV23 (PNEUMOVAX) Unknown Completed [facility] Influenza Virus Vaccine Unknown Completed [facility] Influenza Virus Vaccine Quad IM, Preserv and ABX Free 6 MO-64 YRS (FLUCELVAX) Unknown Completed [facility] MMR Unknown Completed [facility] Influenza Virus Vaccine Unknown Completed [facility] Influenza Virus Vaccine Quad IM, Preserv and ABX Free 6 MO-64 YRS (FLUCELVAX) Unknown Completed [facility] TDAP Unknown Completed [facility] Influenza Virus Vaccine Quad IM 3+ YRS Unknown Completed [facility] Pneumococcal Polysaccharide, PPSV23 (PNEUMOVAX) Unknown Completed [facility] TDAP Unknown Completed [facility] MMR Unknown Completed [facility] Influenza Virus Vaccine Quad IM 3+ YRS Unknown Completed [facility] Pneumococcal Polysaccharide, PPSV23 (PNEUMOVAX) Unknown Completed [facility] Influenza Virus Vaccine Unknown Completed [facility] Influenza Virus Vaccine Quad IM, Preserv and ABX Free 6 MO-64 YRS (FLUCELVAX) Unknown Completed [facility] TDAP Unknown Completed [facility] MMR Unknown Completed [facility] Influenza Virus Vaccine Quad IM 3+ YRS Unknown Completed [facility] Pneumococcal Polysaccharide, PPSV23 (PNEUMOVAX) Unknown Completed [facility] Influenza Virus Vaccine Unknown Completed [facility] Influenza Virus Vaccine Quad IM, Preserv and ABX Free 6 MO-64 YRS (FLUCELVAX) Unknown Completed [facility] TDAP Unknown Completed [facility] MMR Unknown Completed [facility] Influenza Virus Vaccine Quad IM 3+ YRS Unknown Completed [facility] Pneumococcal Polysaccharide, PPSV23 (PNEUMOVAX) Unknown Completed [facility] Influenza Virus Vaccine Unknown Completed [facility] Influenza Virus Vaccine Quad IM, Preserv and ABX Free 6 MO-64 YRS (FLUCELVAX) Unknown Completed [facility] TDAP Unknown Completed [facility] MMR Unknown Completed [facility] Influenza Virus Vaccine Quad IM 3+ YRS Unknown Completed [facility] Pneumococcal Polysaccharide, PPSV23 (PNEUMOVAX) Unknown Completed [facility] Influenza Virus Vaccine Unknown Completed [facility] Influenza Virus Vaccine Quad IM, Preserv and ABX Free 6 MO-64 YRS (FLUCELVAX) Unknown Completed [facility] MMR Unknown Completed [facility] Influenza Virus Vaccine Unknown Completed [facility] Influenza Virus Vaccine Quad IM, Preserv and ABX Free 6 MO-64 YRS (FLUCELVAX) Unknown Completed [facility] TDAP Unknown Completed [facility] Influenza Virus Vaccine Quad IM 3+ YRS Unknown Completed [facility] Pneumococcal Polysaccharide, PPSV23 (PNEUMOVAX) Unknown Completed [facility] TDAP Unknown Completed [facility] MMR Unknown Completed [facility] Influenza Virus Vaccine Quad IM 3+ YRS Unknown Completed [facility] Pneumococcal Polysaccharide, PPSV23 (PNEUMOVAX) Unknown Completed [facility] Influenza Virus Vaccine Unknown Completed [facility] Influenza Virus Vaccine Quad IM, Preserv and ABX Free 6 MO-64 YRS (FLUCELVAX) Unknown Completed [facility] TDAP Unknown Completed [facility] MMR Unknown Completed [facility] Influenza Virus Vaccine Quad IM 3+ YRS Unknown Completed [facility] Pneumococcal Polysaccharide, PPSV23 (PNEUMOVAX) Unknown Completed [facility] Influenza Virus Vaccine Unknown Completed [facility] Influenza Virus Vaccine Quad IM, Preserv and ABX Free 6 MO-64 YRS (FLUCELVAX) Unknown Completed [facility] TDAP Unknown Completed [facility] MMR Unknown Completed [facility] Influenza Virus Vaccine Quad IM 3+ YRS Unknown Completed [facility] Pneumococcal Polysaccharide, PPSV23 (PNEUMOVAX) Unknown Completed [facility] Influenza Virus Vaccine Unknown Completed [facility] Influenza Virus Vaccine Quad IM, Preserv and ABX Free 6 MO-64 YRS (FLUCELVAX) Unknown Completed [facility] TDAP Unknown Completed [facility] MMR Unknown Completed [facility] Influenza Virus Vaccine Quad IM 3+ YRS Unknown Completed [facility] Pneumococcal Polysaccharide, PPSV23 (PNEUMOVAX) Unknown Completed [facility] Influenza Virus Vaccine Unknown Completed [facility] Influenza Virus Vaccine Quad IM, Preserv and ABX Free 6 MO-64 YRS (FLUCELVAX) Unknown Completed [facility] TDAP Unknown Completed [facility] MMR Unknown Completed [facility] Influenza Virus Vaccine Quad IM 3+ YRS Unknown Completed [facility] Pneumococcal Polysaccharide, PPSV23 (PNEUMOVAX) Unknown Completed [facility] Influenza Virus Vaccine Unknown Completed [facility] Influenza Virus Vaccine Quad IM, Preserv and ABX Free 6 MO-64 YRS (FLUCELVAX) Unknown Completed [facility] MMR Unknown Completed [facility] Influenza Virus Vaccine Unknown Completed [facility] Influenza Virus Vaccine Quad IM, Preserv and ABX Free 6 MO-64 YRS (FLUCELVAX) Unknown Completed [facility] TDAP Unknown Completed [facility] Influenza Virus Vaccine Quad IM 3+ YRS Unknown Completed [facility] Pneumococcal Polysaccharide, PPSV23 (PNEUMOVAX) Unknown Completed [facility] TDAP Unknown Completed [facility] MMR Unknown Completed [facility] Influenza Virus Vaccine Quad IM 3+ YRS Unknown Completed [facility] Pneumococcal Polysaccharide, PPSV23 (PNEUMOVAX) Unknown Completed [facility] Influenza Virus Vaccine Unknown Completed [facility] Influenza Virus Vaccine Quad IM, Preserv and ABX Free 6 MO-64 YRS (FLUCELVAX) Unknown Completed [facility] TDAP Unknown Completed [facility] MMR Unknown Completed [facility] Influenza Virus Vaccine Quad IM 3+ YRS Unknown Completed [facility] Pneumococcal Polysaccharide, PPSV23 (PNEUMOVAX) Unknown Completed [facility] Influenza Virus Vaccine Unknown Completed [facility] Influenza Virus Vaccine Quad IM, Preserv and ABX Free 6 MO-64 YRS (FLUCELVAX) Unknown Completed [facility] TDAP Unknown Completed [facility] MMR Unknown Completed [facility] Influenza Virus Vaccine Quad IM 3+ YRS Unknown Completed [facility] Pneumococcal Polysaccharide, PPSV23 (PNEUMOVAX) Unknown Completed [facility] Influenza Virus Vaccine Unknown Completed [facility] Influenza Virus Vaccine Quad IM, Preserv and ABX Free 6 MO-64 YRS (FLUCELVAX) Unknown Completed [facility] TDAP Unknown Completed [facility] MMR Unknown Completed [facility] Influenza Virus Vaccine Quad IM 3+ YRS Unknown Completed [facility] Pneumococcal Polysaccharide, PPSV23 (PNEUMOVAX) Unknown Completed [facility] Influenza Virus Vaccine Unknown Completed [facility] Influenza Virus Vaccine Quad IM, Preserv and ABX Free 6 MO-64 YRS (FLUCELVAX) Unknown Completed [facility] TDAP Unknown Completed [facility] MMR Unknown Completed [facility] Influenza Virus Vaccine Quad IM 3+ YRS Unknown Completed [facility] Pneumococcal Polysaccharide, PPSV23 (PNEUMOVAX) Unknown Completed [facility] Influenza Virus Vaccine Unknown Completed [facility] Influenza Virus Vaccine Quad IM, Preserv and ABX Free 6 MO-64 YRS (FLUCELVAX) Unknown Completed [facility] MMR Unknown Completed [facility] Influenza Virus Vaccine Unknown Completed [facility] Influenza Virus Vaccine Quad IM, Preserv and ABX Free 6 MO-64 YRS (FLUCELVAX) Unknown Completed [facility] TDAP Unknown Completed [facility] Influenza Virus Vaccine Quad IM 3+ YRS Unknown Completed [facility] Pneumococcal Polysaccharide, PPSV23 (PNEUMOVAX) Unknown Completed [facility] TDAP Unknown Completed [facility] MMR Unknown Completed [facility] Influenza Virus Vaccine Quad IM 3+ YRS Unknown Completed [facility] Pneumococcal Polysaccharide, PPSV23 (PNEUMOVAX) Unknown Completed [facility] Influenza Virus Vaccine Unknown Completed [facility] Influenza Virus Vaccine Quad IM, Preserv and ABX Free 6 MO-64 YRS (FLUCELVAX) Unknown Completed [facility] TDAP Unknown Completed [facility] MMR Unknown Completed [facility] Influenza Virus Vaccine Quad IM 3+ YRS Unknown Completed [facility] Pneumococcal Polysaccharide, PPSV23 (PNEUMOVAX) Unknown Completed [facility] Influenza Virus Vaccine Unknown Completed [facility] Influenza Virus Vaccine Quad IM, Preserv and ABX Free 6 MO-64 YRS (FLUCELVAX) Unknown Completed [facility] MMR Unknown Completed [facility] Influenza Virus Vaccine Unknown Completed [facility] Influenza Virus Vaccine Quad IM, Preserv and ABX Free 6 MO-64 YRS (FLUCELVAX) Unknown Completed [facility] TDAP Unknown Completed [facility] Influenza Virus Vaccine Quad IM 3+ YRS Unknown Completed [facility] Pneumococcal Polysaccharide, PPSV23 (PNEUMOVAX) Unknown Completed [facility] TDAP Unknown Completed [facility] MMR Unknown Completed [facility] Influenza Virus Vaccine Quad IM 3+ YRS Unknown Completed [facility] Pneumococcal Polysaccharide, PPSV23 (PNEUMOVAX) Unknown Completed [facility] Influenza Virus Vaccine Unknown Completed [facility] Influenza Virus Vaccine Quad IM, Preserv and ABX Free 6 MO-64 YRS (FLUCELVAX) Unknown Completed [facility] TDAP Unknown Completed [facility] MMR Unknown Completed [facility] Influenza Virus Vaccine Quad IM 3+ YRS Unknown Completed [facility] Pneumococcal Polysaccharide, PPSV23 (PNEUMOVAX) Unknown Completed [facility] Influenza Virus Vaccine Unknown Completed [facility] Influenza Virus Vaccine Quad IM, Preserv and ABX Free 6 MO-64 YRS (FLUCELVAX) Unknown Completed [facility] TDAP Unknown Completed [facility] MMR Unknown Completed [facility] Influenza Virus Vaccine Quad IM 3+ YRS Unknown Completed [facility] Pneumococcal Polysaccharide, PPSV23 (PNEUMOVAX) Unknown Completed [facility] Influenza Virus Vaccine Unknown Completed [facility] Influenza Virus Vaccine Quad IM, Preserv and ABX Free 6 MO-64 YRS (FLUCELVAX) Unknown Completed [facility] TDAP Unknown Completed [facility] MMR Unknown Completed [facility] Influenza Virus Vaccine Quad IM 3+ YRS Unknown Completed [facility] Pneumococcal Polysaccharide, PPSV23 (PNEUMOVAX) Unknown Completed [facility] Influenza Virus Vaccine Unknown Completed [facility] Influenza Virus Vaccine Quad IM, Preserv and ABX Free 6 MO-64 YRS (FLUCELVAX) Unknown Completed [facility] MMR Unknown Completed [facility] Influenza Virus Vaccine Unknown Completed [facility] Influenza Virus Vaccine Quad IM, Preserv and ABX Free 6 MO-64 YRS (FLUCELVAX) Unknown Completed [facility] TDAP Unknown Completed [facility] Influenza Virus Vaccine Quad IM 3+ YRS Unknown Completed [facility] Pneumococcal Polysaccharide, PPSV23 (PNEUMOVAX) Unknown Completed [facility] TDAP Unknown Completed [facility] MMR Unknown Completed [facility] Influenza Virus Vaccine Quad IM 3+ YRS Unknown Completed [facility] Pneumococcal Polysaccharide, PPSV23 (PNEUMOVAX) Unknown Completed [facility] Influenza Virus Vaccine Unknown Completed [facility] Influenza Virus Vaccine Quad IM, Preserv and ABX Free 6 MO-64 YRS (FLUCELVAX) Unknown Completed [facility] TDAP Unknown Completed [facility] MMR Unknown Completed [facility] Influenza Virus Vaccine Quad IM 3+ YRS Unknown Completed [facility] Pneumococcal Polysaccharide, PPSV23 (PNEUMOVAX) Unknown Completed [facility] Influenza Virus Vaccine Unknown Completed [facility] Influenza Virus Vaccine Quad IM, Preserv and ABX Free 6 MO-64 YRS (FLUCELVAX) Unknown Completed [facility] TDAP Unknown Completed [facility] MMR Unknown Completed [facility] Influenza Virus Vaccine Quad IM 3+ YRS Unknown Completed [facility] Pneumococcal Polysaccharide, PPSV23 (PNEUMOVAX) Unknown Completed [facility] Influenza Virus Vaccine Unknown Completed [facility] Influenza Virus Vaccine Quad IM, Preserv and ABX Free 6 MO-64 YRS (FLUCELVAX) Unknown Completed [facility] TDAP Unknown Completed [facility] MMR Unknown Completed [facility] Influenza Virus Vaccine Quad IM 3+ YRS Unknown Completed [facility] Pneumococcal Polysaccharide, PPSV23 (PNEUMOVAX) Unknown Completed [facility] Influenza Virus Vaccine Unknown Completed [facility] Influenza Virus Vaccine Quad IM, Preserv and ABX Free 6 MO-64 YRS (FLUCELVAX) Unknown Completed [facility] TDAP Unknown Completed [facility] MMR Unknown Completed [facility] Influenza Virus Vaccine Quad IM 3+ YRS Unknown Completed [facility] Pneumococcal Polysaccharide, PPSV23 (PNEUMOVAX) Unknown Completed [facility] Influenza Virus Vaccine Unknown Completed [facility] Influenza Virus Vaccine Quad IM, Preserv and ABX Free 6 MO-64 YRS (FLUCELVAX) Unknown Completed [facility] TDAP Unknown Completed [facility] MMR Unknown Completed [facility] Influenza Virus Vaccine Quad IM 3+ YRS Unknown Completed [facility] Pneumococcal Polysaccharide, PPSV23 (PNEUMOVAX) Unknown Completed [facility] Influenza Virus Vaccine Unknown Completed [facility] Influenza Virus Vaccine Quad IM, Preserv and ABX Free 6 MO-64 YRS (FLUCELVAX) Unknown Completed [facility] TDAP Unknown Completed [facility] MMR Unknown Completed [facility] Influenza Virus Vaccine Quad IM 3+ YRS Unknown Completed [facility] Pneumococcal Polysaccharide, PPSV23 (PNEUMOVAX) Unknown Completed [facility] Influenza Virus Vaccine Unknown Completed [facility] Influenza Virus Vaccine Quad IM, Preserv and ABX Free 6 MO-64 YRS (FLUCELVAX) Unknown Completed [facility] MMR Unknown Completed [facility] Influenza Virus Vaccine Unknown Completed [facility] Influenza Virus Vaccine Quad IM, Preserv and ABX Free 6 MO-64 YRS (FLUCELVAX) Unknown Completed [facility] TDAP Unknown Completed [facility] Influenza Virus Vaccine Quad IM 3+ YRS Unknown Completed [facility] Pneumococcal Polysaccharide, PPSV23 (PNEUMOVAX) Unknown Completed [facility] TDAP Unknown Completed [facility] MMR Unknown Completed [facility] Influenza Virus Vaccine Quad IM 3+ YRS Unknown Completed [facility] Pneumococcal Polysaccharide, PPSV23 (PNEUMOVAX) Unknown Completed [facility] Influenza Virus Vaccine Unknown Completed [facility] Influenza Virus Vaccine Quad IM, Preserv and ABX Free 6 MO-64 YRS (FLUCELVAX) Unknown Completed [facility] TDAP Unknown Completed [facility] MMR Unknown Completed [facility] Influenza Virus Vaccine Quad IM 3+ YRS Unknown Completed [facility] Pneumococcal Polysaccharide, PPSV23 (PNEUMOVAX) Unknown Completed [facility] Influenza Virus Vaccine Unknown Completed [facility] Influenza Virus Vaccine Quad IM, Preserv and ABX Free 6 MO-64 YRS (FLUCELVAX) Unknown Completed [facility] TDAP Unknown Completed [facility] MMR Unknown Completed [facility] Influenza Virus Vaccine Quad IM 3+ YRS Unknown Completed [facility] Pneumococcal Polysaccharide, PPSV23 (PNEUMOVAX) Unknown Completed [facility] Influenza Virus Vaccine Unknown Completed [facility] Influenza Virus Vaccine Quad IM, Preserv and ABX Free 6 MO-64 YRS (FLUCELVAX) Unknown Completed [facility] TDAP Unknown Completed [facility] MMR Unknown Completed [facility] Influenza Virus Vaccine Quad IM 3+ YRS Unknown Completed [facility] Pneumococcal Polysaccharide, PPSV23 (PNEUMOVAX) Unknown Completed [facility] Influenza Virus Vaccine Unknown Completed [facility] Influenza Virus Vaccine Quad IM, Preserv and ABX Free 6 MO-64 YRS (FLUCELVAX) Unknown Completed [facility] TDAP Unknown Completed [facility] MMR Unknown Completed [facility] Influenza Virus Vaccine Quad IM 3+ YRS Unknown Completed [facility] Pneumococcal Polysaccharide, PPSV23 (PNEUMOVAX) Unknown Completed [facility] Influenza Virus Vaccine Unknown Completed [facility] Influenza Virus Vaccine Quad IM, Preserv and ABX Free 6 MO-64 YRS (FLUCELVAX) Unknown Completed [facility] TDAP Unknown Completed [facility] MMR Unknown Completed [facility] Influenza Virus Vaccine Quad IM 3+ YRS Unknown Completed [facility] Pneumococcal Polysaccharide, PPSV23 (PNEUMOVAX) Unknown Completed [facility] Influenza Virus Vaccine Unknown Completed [facility] Influenza Virus Vaccine Quad IM, Preserv and ABX Free 6 MO-64 YRS (FLUCELVAX) Unknown Completed [facility] TDAP Unknown Completed [facility] MMR Unknown Completed [facility] Influenza Virus Vaccine Quad IM 3+ YRS Unknown Completed [facility] Pneumococcal Polysaccharide, PPSV23 (PNEUMOVAX) Unknown Completed [facility] Influenza Virus Vaccine Unknown Completed [facility] Influenza Virus Vaccine Quad IM, Preserv and ABX Free 6 MO-64 YRS (FLUCELVAX) Unknown Completed [facility] TDAP Unknown Completed [facility] MMR Unknown Completed [facility] Influenza Virus Vaccine Quad IM 3+ YRS Unknown Completed [facility] Pneumococcal Polysaccharide, PPSV23 (PNEUMOVAX) Unknown Completed [facility] Influenza Virus Vaccine Unknown Completed [facility] Influenza Virus Vaccine Quad IM, Preserv and ABX Free 6 MO-64 YRS (FLUCELVAX) Unknown Completed [facility] TDAP Unknown Completed [facility] MMR Unknown Completed [facility] Influenza Virus Vaccine Quad IM 3+ YRS Unknown Completed [facility] Pneumococcal Polysaccharide, PPSV23 (PNEUMOVAX) Unknown Completed [facility] Influenza Virus Vaccine Unknown Completed [facility] Influenza Virus Vaccine Quad IM, Preserv and ABX Free 6 MO-64 YRS (FLUCELVAX) Unknown Completed [facility] TDAP Unknown Completed [facility] MMR Unknown Completed [facility] Influenza Virus Vaccine Quad IM 3+ YRS Unknown Completed [facility] Pneumococcal Polysaccharide, PPSV23 (PNEUMOVAX) Unknown Completed [facility] Influenza Virus Vaccine Unknown Completed [facility] Influenza Virus Vaccine Quad IM, Preserv and ABX Free 6 MO-64 YRS (FLUCELVAX) Unknown Completed [facility] TDAP Unknown Completed [facility] MMR Unknown Completed [facility] Influenza Virus Vaccine Quad IM 3+ YRS Unknown Completed [facility] Pneumococcal Polysaccharide, PPSV23 (PNEUMOVAX) Unknown Completed [facility] Influenza Virus Vaccine Unknown Completed [facility] Influenza Virus Vaccine Quad IM, Preserv and ABX Free 6 MO-64 YRS (FLUCELVAX) Unknown Completed [facility] TDAP Unknown Completed [facility] MMR Unknown Completed [facility] Influenza Virus Vaccine Quad IM 3+ YRS Unknown Completed [facility] Pneumococcal Polysaccharide, PPSV23 (PNEUMOVAX) Unknown Completed [facility] Influenza Virus Vaccine Unknown Completed [facility] Influenza Virus Vaccine Quad IM, Preserv and ABX Free 6 MO-64 YRS (FLUCELVAX) Unknown Completed [facility] TDAP Unknown Completed [facility] MMR Unknown Completed [facility] Influenza Virus Vaccine Quad IM 3+ YRS Unknown Completed [facility] Pneumococcal Polysaccharide, PPSV23 (PNEUMOVAX) Unknown Completed [facility] Influenza Virus Vaccine Unknown Completed [facility] Influenza Virus Vaccine Quad IM, Preserv and ABX Free 6 MO-64 YRS (FLUCELVAX) Unknown Completed [facility] TDAP Unknown Completed [facility] MMR Unknown Completed [facility] Influenza Virus Vaccine Quad IM 3+ YRS Unknown Completed [facility] Pneumococcal Polysaccharide, PPSV23 (PNEUMOVAX) Unknown Completed [facility] Influenza Virus Vaccine Unknown Completed [facility] Influenza Virus Vaccine Quad IM, Preserv and ABX Free 6 MO-64 YRS (FLUCELVAX) Unknown Completed [facility] TDAP Unknown Completed [facility] MMR Unknown Completed [facility] Influenza Virus Vaccine Quad IM 3+ YRS Unknown Completed [facility] Pneumococcal Polysaccharide, PPSV23 (PNEUMOVAX) Unknown Completed [facility] Influenza Virus Vaccine Unknown Completed [facility] Influenza Virus Vaccine Quad IM, Preserv and ABX Free 6 MO-64 YRS (FLUCELVAX) Unknown Completed [facility] TDAP Unknown Completed [facility] MMR Unknown Completed [facility] Influenza Virus Vaccine Quad IM 3+ YRS Unknown Completed [facility] Pneumococcal Polysaccharide, PPSV23 (PNEUMOVAX) Unknown Completed [facility] Influenza Virus Vaccine Unknown Completed [facility] Influenza Virus Vaccine Quad IM, Preserv and ABX Free 6 MO-64 YRS (FLUCELVAX) Unknown Completed [facility] TDAP Unknown Completed [facility] MMR Unknown Completed [facility] Influenza Virus Vaccine Quad IM 3+ YRS Unknown Completed [facility] Pneumococcal Polysaccharide, PPSV23 (PNEUMOVAX) Unknown Completed [facility] Influenza Virus Vaccine Unknown Completed [facility] Influenza Virus Vaccine Quad IM, Preserv and ABX Free 6 MO-64 YRS (FLUCELVAX) Unknown Completed [facility] TDAP Unknown Completed [facility] MMR Unknown Completed [facility] Influenza Virus Vaccine Quad IM 3+ YRS Unknown Completed [facility] Pneumococcal Polysaccharide, PPSV23 (PNEUMOVAX) Unknown Completed [facility] Influenza Virus Vaccine Unknown Completed [facility] Influenza Virus Vaccine Quad IM, Preserv and ABX Free 6 MO-64 YRS (FLUCELVAX) Unknown Completed [facility] TDAP Unknown Completed [facility] MMR Unknown Completed [facility] Influenza Virus Vaccine Quad IM 3+ YRS Unknown Completed [facility] Pneumococcal Polysaccharide, PPSV23 (PNEUMOVAX) Unknown Completed [facility] Influenza Virus Vaccine Unknown Completed [facility] Influenza Virus Vaccine Quad IM, Preserv and ABX Free 6 MO-64 YRS (FLUCELVAX) Unknown Completed [facility] TDAP Unknown Completed [facility] MMR Unknown Completed [facility] Influenza Virus Vaccine Quad IM 3+ YRS Unknown Completed [facility] Pneumococcal Polysaccharide, PPSV23 (PNEUMOVAX) Unknown Completed [facility] Influenza Virus Vaccine Unknown Completed [facility] Influenza Virus Vaccine Quad IM, Preserv and ABX Free 6 MO-64 YRS (FLUCELVAX) Unknown Completed [facility] TDAP Unknown Completed [facility] MMR Unknown Completed [facility] Influenza Virus Vaccine Quad IM 3+ YRS Unknown Completed [facility] Pneumococcal Polysaccharide, PPSV23 (PNEUMOVAX) Unknown Completed [facility] Influenza Virus Vaccine Unknown Completed [facility] Influenza Virus Vaccine Quad IM, Preserv and ABX Free 6 MO-64 YRS (FLUCELVAX) Unknown Completed [facility] TDAP Unknown Completed [facility] MMR Unknown Completed [facility] Influenza Virus Vaccine Quad IM 3+ YRS Unknown Completed [facility] Pneumococcal Polysaccharide, PPSV23 (PNEUMOVAX) Unknown Completed [facility] Influenza Virus Vaccine Unknown Completed [facility] Influenza Virus Vaccine Quad IM, Preserv and ABX Free 6 MO-64 YRS (FLUCELVAX) Unknown Completed [facility] TDAP Unknown Completed [facility] MMR Unknown Completed [facility] Influenza Virus Vaccine Quad IM 3+ YRS Unknown Completed [facility] Pneumococcal Polysaccharide, PPSV23 (PNEUMOVAX) Unknown Completed [facility] Influenza Virus Vaccine Unknown Completed [facility] Influenza Virus Vaccine Quad IM, Preserv and ABX Free 6 MO-64 YRS (FLUCELVAX) Unknown Completed [facility] TDAP Unknown Completed [facility] MMR Unknown Completed [facility] Influenza Virus Vaccine Quad IM 3+ YRS Unknown Completed [facility] Pneumococcal Polysaccharide, PPSV23 (PNEUMOVAX) Unknown Completed [facility] Influenza Virus Vaccine Unknown Completed [facility] Influenza Virus Vaccine Quad IM, Preserv and ABX Free 6 MO-64 YRS (FLUCELVAX) Unknown Completed [facility] TDAP Unknown Completed [facility] MMR Unknown Completed [facility] Influenza Virus Vaccine Quad IM 3+ YRS Unknown Completed [facility] Pneumococcal Polysaccharide, PPSV23 (PNEUMOVAX) Unknown Completed [facility] Influenza Virus Vaccine Unknown Completed [facility] Influenza Virus Vaccine Quad IM, Preserv and ABX Free 6 MO-64 YRS (FLUCELVAX) Unknown Completed [facility] TDAP Unknown Completed [facility] MMR Unknown Completed [facility] Influenza Virus Vaccine Quad IM 3+ YRS Unknown Completed [facility] Pneumococcal Polysaccharide, PPSV23 (PNEUMOVAX) Unknown Completed [facility] Influenza Virus Vaccine Unknown Completed [facility] Influenza Virus Vaccine Quad IM, Preserv and ABX Free 6 MO-64 YRS (FLUCELVAX) Unknown Completed [facility] TDAP Unknown Completed [facility] MMR Unknown Completed [facility] Influenza Virus Vaccine Quad IM 3+ YRS Unknown Completed [facility] Pneumococcal Polysaccharide, PPSV23 (PNEUMOVAX) Unknown Completed [facility] Influenza Virus Vaccine Unknown Completed [facility] Influenza Virus Vaccine Quad IM, Preserv and ABX Free 6 MO-64 YRS (FLUCELVAX) Unknown Completed [facility] TDAP Unknown Completed [facility] MMR Unknown Completed [facility] Influenza Virus Vaccine Quad IM 3+ YRS Unknown Completed [facility] Pneumococcal Polysaccharide, PPSV23 (PNEUMOVAX) Unknown Completed [facility] Influenza Virus Vaccine Unknown Completed [facility] Influenza Virus Vaccine Quad IM, Preserv and ABX Free 6 MO-64 YRS (FLUCELVAX) Unknown Completed [facility] TDAP Unknown Completed [facility] MMR Unknown Completed [facility] Influenza Virus Vaccine Quad IM 3+ YRS Unknown Completed [facility] Pneumococcal Polysaccharide, PPSV23 (PNEUMOVAX) Unknown Completed [facility] Influenza Virus Vaccine Unknown Completed [facility] Influenza Virus Vaccine Quad IM, Preserv and ABX Free 6 MO-64 YRS (FLUCELVAX) Unknown Completed [facility] TDAP Unknown Completed [facility] MMR Unknown Completed [facility] Influenza Virus Vaccine Quad IM 3+ YRS Unknown Completed [facility] Pneumococcal Polysaccharide, PPSV23 (PNEUMOVAX) Unknown Completed [facility] Influenza Virus Vaccine Unknown Completed [facility] Influenza Virus Vaccine Quad IM, Preserv and ABX Free 6 MO-64 YRS (FLUCELVAX) Unknown Completed [facility] TDAP Unknown Completed [facility] MMR Unknown Completed [facility] Influenza Virus Vaccine Quad IM 3+ YRS Unknown Completed [facility] Pneumococcal Polysaccharide, PPSV23 (PNEUMOVAX) Unknown Completed [facility] Influenza Virus Vaccine Unknown Completed [facility] Influenza Virus Vaccine Quad IM, Preserv and ABX Free 6 MO-64 YRS (FLUCELVAX) Unknown Completed [facility] TDAP Unknown Completed [facility] MMR Unknown Completed [facility] Influenza Virus Vaccine Quad IM 3+ YRS Unknown Completed [facility] Pneumococcal Polysaccharide, PPSV23 (PNEUMOVAX) Unknown Completed [facility] Influenza Virus Vaccine Unknown Completed [facility] Influenza Virus Vaccine Quad IM, Preserv and ABX Free 6 MO-64 YRS (FLUCELVAX) Unknown Completed [facility] TDAP Unknown Completed [facility] MMR Unknown Completed [facility] Influenza Virus Vaccine Quad IM 3+ YRS Unknown Completed [facility] Pneumococcal Polysaccharide, PPSV23 (PNEUMOVAX) Unknown Completed [facility] Influenza Virus Vaccine Unknown Completed [facility] Influenza Virus Vaccine Quad IM, Preserv and ABX Free 6 MO-64 YRS (FLUCELVAX) Unknown Completed [facility] TDAP Unknown Completed [facility] MMR Unknown Completed [facility] Influenza Virus Vaccine Quad IM 3+ YRS Unknown Completed [facility] Pneumococcal Polysaccharide, PPSV23 (PNEUMOVAX) Unknown Completed [facility] Influenza Virus Vaccine Unknown Completed [facility] Influenza Virus Vaccine Quad IM, Preserv and ABX Free 6 MO-64 YRS (FLUCELVAX) Unknown Completed [facility] TDAP Unknown Completed [facility] MMR Unknown Completed [facility] Influenza Virus Vaccine Quad IM 3+ YRS Unknown Completed [facility] Pneumococcal Polysaccharide, PPSV23 (PNEUMOVAX) Unknown Completed [facility] Influenza Virus Vaccine Unknown Completed [facility] Influenza Virus Vaccine Quad IM, Preserv and ABX Free 6 MO-64 YRS (FLUCELVAX) Unknown Completed [facility] TDAP Unknown Completed [facility] MMR Unknown Completed [facility] Influenza Virus Vaccine Quad IM 3+ YRS Unknown Completed [facility] Pneumococcal Polysaccharide, PPSV23 (PNEUMOVAX) Unknown Completed [facility] Influenza Virus Vaccine Unknown Completed [facility] Influenza Virus Vaccine Quad IM, Preserv and ABX Free 6 MO-64 YRS (FLUCELVAX) Unknown Completed [facility] TDAP Unknown Completed [facility] MMR Unknown Completed [facility] Influenza Virus Vaccine Quad IM 3+ YRS Unknown Completed [facility] Pneumococcal Polysaccharide, PPSV23 (PNEUMOVAX) Unknown Completed [facility] Influenza Virus Vaccine Unknown Completed [facility] Influenza Virus Vaccine Quad IM, Preserv and ABX Free 6 MO-64 YRS (FLUCELVAX) Unknown Completed [facility] TDAP Unknown Completed [facility] MMR Unknown Completed [facility] Influenza Virus Vaccine Quad IM 3+ YRS Unknown Completed [facility] Pneumococcal Polysaccharide, PPSV23 (PNEUMOVAX) Unknown Completed [facility] Influenza Virus Vaccine Unknown Completed [facility] Influenza Virus Vaccine Quad IM, Preserv and ABX Free 6 MO-64 YRS (FLUCELVAX) Unknown Completed [facility] TDAP Unknown Completed [facility] MMR Unknown Completed [facility] Influenza Virus Vaccine Quad IM 3+ YRS Unknown Completed [facility] Pneumococcal Polysaccharide, PPSV23 (PNEUMOVAX) Unknown Completed [facility] Influenza Virus Vaccine Unknown Completed [facility] Influenza Virus Vaccine Quad IM, Preserv and ABX Free 6 MO-64 YRS (FLUCELVAX) Unknown Completed [facility] TDAP Unknown Completed [facility] MMR Unknown Completed [facility] Influenza Virus Vaccine Quad IM 3+ YRS Unknown Completed [facility] Pneumococcal Polysaccharide, PPSV23 (PNEUMOVAX) Unknown Completed [facility] Influenza Virus Vaccine Unknown Completed [facility] Influenza Virus Vaccine Quad IM, Preserv and ABX Free 6 MO-64 YRS (FLUCELVAX) Unknown Completed [facility] TDAP Unknown Completed [facility] MMR Unknown Completed [facility] Influenza Virus Vaccine Quad IM 3+ YRS Unknown Completed [facility] Pneumococcal Polysaccharide, PPSV23 (PNEUMOVAX) Unknown Completed [facility] Influenza Virus Vaccine Unknown Completed [facility] Influenza Virus Vaccine Quad IM, Preserv and ABX Free 6 MO-64 YRS (FLUCELVAX) Unknown Completed [facility] TDAP Unknown Completed [facility] MMR Unknown Completed [facility] Influenza Virus Vaccine Quad IM 3+ YRS Unknown Completed [facility] Pneumococcal Polysaccharide, PPSV23 (PNEUMOVAX) Unknown Completed [facility] Influenza Virus Vaccine Unknown Completed [facility] Influenza Virus Vaccine Quad IM, Preserv and ABX Free 6 MO-64 YRS (FLUCELVAX) Unknown Completed [facility] TDAP Unknown Completed [facility] MMR Unknown Completed [facility] Influenza Virus Vaccine Quad IM 3+ YRS Unknown Completed [facility] Pneumococcal Polysaccharide, PPSV23 (PNEUMOVAX) Unknown Completed [facility] Influenza Virus Vaccine Unknown Completed [facility] Influenza Virus Vaccine Quad IM, Preserv and ABX Free 6 MO-64 YRS (FLUCELVAX) Unknown Completed [facility] TDAP Unknown Completed [facility] MMR Unknown Completed [facility] Influenza Virus Vaccine Quad IM 3+ YRS Unknown Completed [facility] Pneumococcal Polysaccharide, PPSV23 (PNEUMOVAX) Unknown Completed [facility] Influenza Virus Vaccine Unknown Completed [facility] Influenza Virus Vaccine Quad IM, Preserv and ABX Free 6 MO-64 YRS (FLUCELVAX) Unknown Completed [facility] TDAP Unknown Completed [facility] MMR Unknown Completed [facility] Influenza Virus Vaccine Quad IM 3+ YRS Unknown Completed [facility] Pneumococcal Polysaccharide, PPSV23 (PNEUMOVAX) Unknown Completed [facility] Influenza Virus Vaccine Unknown Completed [facility] Influenza Virus Vaccine Quad IM, Preserv and ABX Free 6 MO-64 YRS (FLUCELVAX) Unknown Completed [facility] TDAP Unknown Completed [facility] MMR Unknown Completed [facility] Influenza Virus Vaccine Quad IM 3+ YRS Unknown Completed [facility] Pneumococcal Polysaccharide, PPSV23 (PNEUMOVAX) Unknown Completed [facility] Influenza Virus Vaccine Unknown Completed [facility] Influenza Virus Vaccine Quad IM, Preserv and ABX Free 6 MO-64 YRS (FLUCELVAX) Unknown Completed [facility] TDAP Unknown Completed [facility] MMR Unknown Completed [facility] Influenza Virus Vaccine Quad IM 3+ YRS Unknown Completed [facility] Pneumococcal Polysaccharide, PPSV23 (PNEUMOVAX) Unknown Completed [facility] Influenza Virus Vaccine Unknown Completed [facility] Influenza Virus Vaccine Quad IM, Preserv and ABX Free 6 MO-64 YRS (FLUCELVAX) Unknown Completed [facility] TDAP Unknown Completed [facility] MMR Unknown Completed [facility] Influenza Virus Vaccine Quad IM 3+ YRS Unknown Completed [facility] Pneumococcal Polysaccharide, PPSV23 (PNEUMOVAX) Unknown Completed [facility] Influenza Virus Vaccine Unknown Completed [facility] Influenza Virus Vaccine Quad IM, Preserv and ABX Free 6 MO-64 YRS (FLUCELVAX) Unknown Completed [facility] TDAP Unknown Completed [facility] MMR Unknown Completed [facility] Influenza Virus Vaccine Quad IM 3+ YRS Unknown Completed [facility] Pneumococcal Polysaccharide, PPSV23 (PNEUMOVAX) Unknown Completed [facility] Influenza Virus Vaccine Unknown Completed [facility] Influenza Virus Vaccine Quad IM, Preserv and ABX Free 6 MO-64 YRS (FLUCELVAX) Unknown Completed [facility] TDAP Unknown Completed [facility] MMR Unknown Completed [facility] Influenza Virus Vaccine Quad IM 3+ YRS Unknown Completed [facility] Pneumococcal Polysaccharide, PPSV23 (PNEUMOVAX) Unknown Completed [facility] Influenza Virus Vaccine Unknown Completed [facility] Influenza Virus Vaccine Quad IM, Preserv and ABX Free 6 MO-64 YRS (FLUCELVAX) Unknown Completed [facility] TDAP Unknown Completed [facility] MMR Unknown Completed [facility] Influenza Virus Vaccine Quad IM 3+ YRS Unknown Completed [facility] Pneumococcal Polysaccharide, PPSV23 (PNEUMOVAX) Unknown Completed [facility] Influenza Virus Vaccine Unknown Completed [facility] Influenza Virus Vaccine Quad IM, Preserv and ABX Free 6 MO-64 YRS (FLUCELVAX) Unknown Completed [facility] TDAP Unknown Completed [facility] MMR Unknown Completed [facility] Influenza Virus Vaccine Quad IM 3+ YRS Unknown Completed [facility] Pneumococcal Polysaccharide, PPSV23 (PNEUMOVAX) Unknown Completed [facility] Influenza Virus Vaccine Unknown Completed [facility] Influenza Virus Vaccine Quad IM, Preserv and ABX Free 6 MO-64 YRS (FLUCELVAX) Unknown Completed [facility] Flu Injectable MDCK Pres-Free (FLUCELVAX) Unknown Completed [facility] TDAP Unknown Completed [facility] MMR Unknown Completed [facility] Influenza Virus Vaccine Quad IM 3+ YRS Unknown Completed [facility] Pneumococcal Polysaccharide, PPSV23 (PNEUMOVAX) Unknown Completed [facility] Influenza Virus Vaccine Unknown Completed [facility] Influenza Virus Vaccine Quad IM, Preserv and ABX Free 6 MO-64 YRS (FLUCELVAX) Unknown Completed [facility] TDAP Unknown Completed [facility] MMR Unknown Completed [facility] Influenza Virus Vaccine Quad .5 mL IM 6+ MO (FLUZONE/FLULAVAL/F LUARIX) Unknown Completed [facility] Pneumococcal Polysaccharide, PPSV23 (PNEUMOVAX) Unknown Completed [facility] Influenza Virus Vaccine Unknown Completed [facility] Influenza Virus Vaccine Quad IM, Preserv and ABX Free 6 MO-64 YRS (FLUCELVAX) Unknown Completed [facility] Flu Injectable MDCK Pres-Free (FLUCELVAX) Unknown Completed [facility] TDAP Unknown Completed [facility] MMR Unknown Completed [facility] Influenza Virus Vaccine Quad .5 mL IM 6+ MO (FLUZONE/FLULAVAL/F LUARIX) Unknown Completed [facility] Pneumococcal Polysaccharide, PPSV23 (PNEUMOVAX) Unknown Completed [facility] Influenza Virus Vaccine Unknown Completed [facility] Influenza Virus Vaccine Quad IM, Preserv and ABX Free 6 MO-64 YRS (FLUCELVAX) Unknown Completed [facility] Flu Injectable MDCK Pres-Free (FLUCELVAX) Unknown Completed [facility] TDAP Unknown Completed [facility] MMR Unknown Completed [facility] Influenza Virus Vaccine Quad .5 mL IM 6+ MO (FLUZONE/FLULAVAL/F LUARIX) Unknown Completed [facility] Pneumococcal Polysaccharide, PPSV23 (PNEUMOVAX) Unknown Completed [facility] Influenza Virus Vaccine Unknown Completed [facility] Influenza Virus Vaccine Quad IM, Preserv and ABX Free 6 MO-64 YRS (FLUCELVAX) Unknown Completed [facility] Flu Injectable MDCK Pres-Free (FLUCELVAX) Unknown Completed [facility] Vital Signs Vital Name Observation Time Observation Value Comments S ource Systolic blood pressure 2024-08-26 18:53:00 114 mm[Hg] [facility] Diastolic blood pressure 2024-08-26 18:53:00 74 mm[Hg] [facility] Heart rate 2024-08-26 18:53:00 76 /min [facility] Body temperature 2024-08-26 18:53:00 36.89 [place] [facility] Respiratory rate 2024-08-26 18:53:00 16 /min [facility] Body height 2024-08-26 18:53:00 162.6 cm [facility] Body weight 2024-08-26 18:53:00 75.978 kg [facility] BMI 2024-08-26 18:53:00 28.75 kg/m2 [facility] Systolic blood pressure 2024-08-25 19:58:00 109 mm[Hg] [facility] Diastolic blood pressure 2024-08-25 19:58:00 75 mm[Hg] [facility] Heart rate 2024-08-25 19:58:00 75 /min [facility] Respiratory rate 2024-08-25 19:58:00 18 /min [facility] Body height 2024-08-25 19:58:00 162.6 cm [facility] Body weight 2024-08-25 19:58:00 75.705 kg [facility] BMI 2024-08-25 19:58:00 28.65 kg/m2 [facility] Oxygen saturation in Arterial blood by Pulse oximetry 2024-08-25 19:58:00 99 /min [facility] Systolic blood pressure 2024-08-20 20:10:00 101 mm[Hg] [facility] Diastolic blood pressure 2024-08-20 20:10:00 70 mm[Hg] [facility] Heart rate 2024-08-20 20:10:00 87 /min [facility] Respiratory rate 2024-08-20 20:10:00 18 /min [facility] Body height 2024-08-20 20:10:00 162.6 cm [facility] Body weight 2024-08-20 20:10:00 75.751 kg [facility] BMI 2024-08-20 20:10:00 28.67 kg/m2 [facility] Oxygen saturation in Arterial blood by Pulse oximetry 2024-08-20 20:10:00 97 /min [facility] Systolic blood pressure 2024-08-14 19:35:00 108 mm[Hg] [facility] Diastolic blood pressure 2024-08-14 19:35:00 75 mm[Hg] [facility] Heart rate 2024-08-14 19:35:00 81 /min [facility] Body temperature 2024-08-14 19:35:00 36.72 [place] [facility] Respiratory rate 2024-08-14 19:35:00 18 /min [facility] Body height 2024-08-14 19:35:00 162.6 cm [facility] Body weight 2024-08-14 19:35:00 75.751 kg [facility] BMI 2024-08-14 19:35:00 28.67 kg/m2 [facility] Systolic blood pressure 2024-07-30 19:29:00 111 mm[Hg] [facility] Diastolic blood pressure 2024-07-30 19:29:00 80 mm[Hg] [facility] Heart rate 2024-07-30 19:29:00 88 /min [facility] Body temperature 2024-07-30 19:29:00 36.39 [place] [facility] Respiratory rate 2024-07-30 19:29:00 16 /min [facility] Body height 2024-07-30 19:29:00 162.6 cm [facility] Body weight 2024-07-30 19:29:00 73.12 kg [facility] BMI 2024-07-30 19:29:00 27.67 kg/m2 [facility] Oxygen saturation in Arterial blood by Pulse oximetry 2024-07-30 19:29:00 98 /min [facility] Systolic blood pressure 2024-07-17 19:58:00 108 mm[Hg] [facility] Diastolic blood pressure 2024-07-17 19:58:00 71 mm[Hg] [facility] Heart rate 2024-07-17 19:58:00 79 /min [facility] Body height 2024-07-17 19:58:00 162.6 cm [facility] Body weight 2024-07-17 19:58:00 73.029 kg [facility] BMI 2024-07-17 19:58:00 27.64 kg/m2 [facility] Oxygen saturation in Arterial blood by Pulse oximetry 2024-07-17 19:58:00 99 /min [facility] Systolic blood pressure 2024-06-25 19:04:00 101 mm[Hg] [facility] Diastolic blood pressure 2024-06-25 19:04:00 68 mm[Hg] [facility] Heart rate 2024-06-25 19:04:00 83 /min [facility] Respiratory rate 2024-06-25 19:04:00 12 /min [facility] Body height 2024-06-25 19:04:00 162.6 cm [facility] Body weight 2024-06-25 19:04:00 73.029 kg [facility] BMI 2024-06-25 19:04:00 27.64 kg/m2 [facility] Oxygen saturation in Arterial blood by Pulse oximetry 2024-06-25 19:04:00 99 /min [facility] Systolic blood pressure 2024-06-20 17:31:00 122 mm[Hg] [facility] Diastolic blood pressure 2024-06-20 17:31:00 81 mm[Hg] [facility] Heart rate 2024-06-20 17:31:00 84 /min [facility] Body temperature 2024-06-20 17:31:00 36.78 [place] [facility] Body height 2024-06-20 17:31:00 162.6 cm [facility] Body weight 2024-06-20 17:31:00 73.029 kg [facility] BMI 2024-06-20 17:31:00 27.64 kg/m2 [facility] Systolic blood pressure 2024-05-20 15:19:00 122 mm[Hg] [facility] Diastolic blood pressure 2024-05-20 15:19:00 85 mm[Hg] [facility] Heart rate 2024-05-20 15:19:00 82 /min [facility] Respiratory rate 2024-05-20 15:19:00 18 /min [facility] Body height 2024-05-20 15:19:00 162.6 cm [facility] Body weight 2024-05-20 15:19:00 73.528 kg [facility] BMI 2024-05-20 15:19:00 27.82 kg/m2 [facility] Oxygen saturation in Arterial blood by Pulse oximetry 2024-05-20 15:19:00 99 /min [facility] Systolic blood pressure 2024-05-05 18:16:00 111 mm[Hg] [facility] Diastolic blood pressure 2024-05-05 18:16:00 84 mm[Hg] [facility] Heart rate 2024-05-05 18:16:00 92 /min [facility] Respiratory rate 2024-05-05 18:16:00 18 /min [facility] Body height 2024-05-05 18:16:00 162.6 cm [facility] Body weight 2024-05-05 18:16:00 72.893 kg [facility] BMI 2024-05-05 18:16:00 27.58 kg/m2 [facility] Oxygen saturation in Arterial blood by Pulse oximetry 2024-05-05 18:16:00 99 /min [facility] Systolic blood pressure 2024-04-21 19:07:00 109 mm[Hg] [facility] Diastolic blood pressure 2024-04-21 19:07:00 76 mm[Hg] [facility] Heart rate 2024-04-21 19:07:00 84 /min [facility] Respiratory rate 2024-04-21 19:07:00 18 /min [facility] Body height 2024-04-21 19:07:00 162.5 cm [facility] Body weight 2024-04-21 19:07:00 75.433 kg [facility] BMI 2024-04-21 19:07:00 28.57 kg/m2 [facility] Oxygen saturation in Arterial blood by Pulse oximetry 2024-04-21 19:07:00 98 /min [facility] Systolic blood pressure 2024-04-15 20:16:00 115 mm[Hg] [facility] Diastolic blood pressure 2024-04-15 20:16:00 73 mm[Hg] [facility] Heart rate 2024-04-15 20:16:00 85 /min [facility] Respiratory rate 2024-04-15 20:16:00 18 /min [facility] Body height 2024-04-15 20:16:00 162.6 cm [facility] Body weight 2024-04-15 20:16:00 76.204 kg [facility] BMI 2024-04-15 20:16:00 28.84 kg/m2 [facility] Systolic blood pressure 2024-04-10 16:46:00 106 mm[Hg] [facility] Diastolic blood pressure 2024-04-10 16:46:00 74 mm[Hg] [facility] Heart rate 2024-04-10 16:46:00 82 /min [facility] Body temperature 2024-04-10 16:46:00 35.94 [place] [facility] Respiratory rate 2024-04-10 16:46:00 16 /min [facility] Body weight 2024-04-10 16:46:00 76.204 kg [facility] BMI 2024-04-10 16:46:00 29.29 kg/m2 [facility] Oxygen saturation in Arterial blood by Pulse oximetry 2024-04-10 16:46:00 99 /min [facility] Heart rate 2024-03-24 18:40:00 70 /min [facility] Respiratory rate 2024-03-24 18:40:00 10 /min [facility] Oxygen saturation in Arterial blood by Pulse oximetry 2024-03-24 18:40:00 99 /min [facility] Systolic blood pressure 2024-03-24 18:35:00 94 mm[Hg] [facility] Diastolic blood pressure 2024-03-24 18:35:00 66 mm[Hg] [facility] Body temperature 2024-03-24 17:13:00 36.5 [place] [facility] Body height 2024-03-24 14:35:00 161.3 cm [facility] Body weight 2024-03-24 14:35:00 76.204 kg [facility] BMI 2024-03-24 14:35:00 29.29 kg/m2 [facility] Systolic blood pressure 2024-03-24 14:37:00 114 mm[Hg] [facility] Diastolic blood pressure 2024-03-24 14:37:00 71 mm[Hg] [facility] Heart rate 2024-03-24 14:37:00 78 /min [facility] Body temperature 2024-03-24 14:35:00 36.89 [place] [facility] Respiratory rate 2024-03-24 14:35:00 18 /min [facility] Body height 2024-03-24 14:35:00 161.3 cm [facility] Body weight 2024-03-24 14:35:00 76.204 kg [facility] BMI 2024-03-24 14:35:00 29.29 kg/m2 [facility] Oxygen saturation in Arterial blood by Pulse oximetry 2024-03-24 14:35:00 98 /min [facility] Systolic blood pressure 2024-03-20 19:09:00 103 mm[Hg] [facility] Diastolic blood pressure 2024-03-20 19:09:00 79 mm[Hg] [facility] Heart rate 2024-03-20 19:09:00 82 /min [facility] Oxygen saturation in Arterial blood by Pulse oximetry 2024-03-20 19:09:00 97 /min [facility] Respiratory rate 2024-03-20 18:45:00 15 /min [facility] Body temperature 2024-03-20 17:40:00 36.89 [place] [facility] Body height 2024-03-20 17:40:00 162.6 cm [facility] Body weight 2024-03-20 17:40:00 76.204 kg [facility] BMI 2024-03-20 17:40:00 28.84 kg/m2 [facility] Body weight 2024-02-07 19:45:00 84.369 kg [facility] BMI 2024-02-07 19:45:00 31.93 kg/m2 [facility] Systolic blood pressure 2024-02-06 18:30:00 97 mm[Hg] [facility] Diastolic blood pressure 2024-02-06 18:30:00 66 mm[Hg] [facility] Heart rate 2024-02-06 18:30:00 96 /min [facility] Respiratory rate 2024-02-06 18:30:00 18 /min [facility] Body height 2024-02-06 18:30:00 162.6 cm [facility] Body weight 2024-02-06 18:30:00 84.823 kg [facility] BMI 2024-02-06 18:30:00 32.10 kg/m2 [facility] Systolic blood pressure 2024-02-04 19:24:00 109 mm[Hg] [facility] Diastolic blood pressure 2024-02-04 19:24:00 80 mm[Hg] [facility] Heart rate 2024-02-04 19:24:00 95 /min [facility] Body height 2024-02-04 19:24:00 162.6 cm [facility] Body weight 2024-02-04 19:24:00 84.369 kg [facility] BMI 2024-02-04 19:24:00 31.93 kg/m2 [facility] Oxygen saturation in Arterial blood by Pulse oximetry 2024-02-04 19:24:00 99 /min [facility] Systolic blood pressure 2024-01-23 19:29:00 115 mm[Hg] [facility] Diastolic blood pressure 2024-01-23 19:29:00 82 mm[Hg] [facility] Heart rate 2024-01-23 19:29:00 100 /min [facility] Body temperature 2024-01-23 19:29:00 36.22 [place] [facility] Respiratory rate 2024-01-23 19:29:00 18 /min [facility] Body height 2024-01-23 19:29:00 162.6 cm [facility] Body weight 2024-01-23 19:29:00 86.183 kg [facility] BMI 2024-01-23 19:29:00 32.61 kg/m2 [facility] Oxygen saturation in Arterial blood by Pulse oximetry 2024-01-23 19:29:00 98 /min [facility] Systolic blood pressure 2024-01-15 21:03:00 119 mm[Hg] [facility] Diastolic blood pressure 2024-01-15 21:03:00 84 mm[Hg] [facility] Heart rate 2024-01-15 21:03:00 97 /min [facility] Body temperature 2024-01-15 21:03:00 36.67 [place] [facility] Respiratory rate 2024-01-15 21:03:00 16 /min [facility] Body height 2024-01-15 21:03:00 162.6 cm [facility] Body weight 2024-01-15 21:03:00 90.855 kg [facility] BMI 2024-01-15 21:03:00 34.38 kg/m2 [facility] Oxygen saturation in Arterial blood by Pulse oximetry 2024-01-15 21:03:00 96 /min [facility] Systolic blood pressure 2024-01-15 19:34:00 124 mm[Hg] [facility] Diastolic blood pressure 2024-01-15 19:34:00 84 mm[Hg] [facility] Heart rate 2024-01-15 19:34:00 91 /min [facility] Body height 2024-01-15 19:34:00 162.6 cm [facility] Body weight 2024-01-15 19:34:00 84.823 kg [facility] BMI 2024-01-15 19:34:00 32.10 kg/m2 [facility] Oxygen saturation in Arterial blood by Pulse oximetry 2024-01-15 19:34:00 98 /min [facility] Systolic blood pressure 2023-12-19 19:25:00 121 mm[Hg] [facility] Diastolic blood pressure 2023-12-19 19:25:00 80 mm[Hg] [facility] Heart rate 2023-12-19 19:25:00 81 /min [facility] Body temperature 2023-12-19 19:25:00 36.22 [place] [facility] Respiratory rate 2023-12-19 19:25:00 18 /min [facility] Body height 2023-12-19 19:25:00 162.6 cm [facility] Body weight 2023-12-19 19:25:00 91.173 kg [facility] BMI 2023-12-19 19:25:00 34.50 kg/m2 [facility] Oxygen saturation in Arterial blood by Pulse oximetry 2023-12-19 19:25:00 96 /min [facility] Systolic blood pressure 2023-10-15 20:35:00 114 mm[Hg] [facility] Diastolic blood pressure 2023-10-15 20:35:00 81 mm[Hg] [facility] Heart rate 2023-10-15 20:35:00 77 /min [facility] Body height 2023-10-15 20:35:00 162.6 cm [facility] Body weight 2023-10-15 20:35:00 89.313 kg [facility] BMI 2023-10-15 20:35:00 33.80 kg/m2 [facility] Oxygen saturation in Arterial blood by Pulse oximetry 2023-10-15 20:35:00 97 /min [facility] Systolic blood pressure 2023-09-12 21:15:00 120 mm[Hg] [facility] Diastolic blood pressure 2023-09-12 21:15:00 75 mm[Hg] [facility] Heart rate 2023-09-12 21:15:00 89 /min [facility] Respiratory rate 2023-09-12 21:15:00 16 /min [facility] Oxygen saturation in Arterial blood by Pulse oximetry 2023-09-12 21:15:00 97 /min [facility] Body temperature 2023-09-12 20:24:39 36.94 [place] [facility] Body height 2023-09-12 20:02:00 162.6 cm [facility] Body weight 2023-09-12 20:02:00 95.255 kg [facility] BMI 2023-09-12 20:02:00 36.05 kg/m2 [facility] Systolic blood pressure 2023-09-10 21:59:00 111 mm[Hg] [facility] Diastolic blood pressure 2023-09-10 21:59:00 71 mm[Hg] [facility] Heart rate 2023-09-10 21:59:00 82 /min [facility] Body height 2023-09-10 21:59:00 162.6 cm [facility] Body weight 2023-09-10 21:59:00 95.255 kg [facility] BMI 2023-09-10 21:59:00 36.05 kg/m2 [facility] Systolic blood pressure 2023-06-25 19:40:00 114 mm[Hg] [facility] Diastolic blood pressure 2023-06-25 19:40:00 78 mm[Hg] [facility] Heart rate 2023-06-25 19:40:00 82 /min [facility] Respiratory rate 2023-06-25 19:40:00 12 /min [facility] Body height 2023-06-25 19:40:00 162.6 cm [facility] Body weight 2023-06-25 19:40:00 95.255 kg [facility] BMI 2023-06-25 19:40:00 36.05 kg/m2 [facility] Oxygen saturation in Arterial blood by Pulse oximetry 2023-06-25 19:40:00 97 /min [facility] Systolic blood pressure 2023-06-11 18:36:00 130 mm[Hg] [facility] Diastolic blood pressure 2023-06-11 18:36:00 86 mm[Hg] [facility] Heart rate 2023-06-11 18:36:00 77 /min [facility] Body height 2023-06-11 18:36:00 162.6 cm [facility] Body weight 2023-06-11 18:36:00 92.352 kg [facility] BMI 2023-06-11 18:36:00 34.95 kg/m2 [facility] Oxygen saturation in Arterial blood by Pulse oximetry 2023-06-11 18:36:00 97 /min [facility] Systolic blood pressure 2023-06-06 18:24:00 125 mm[Hg] [facility] Diastolic blood pressure 2023-06-06 18:24:00 86 mm[Hg] [facility] Heart rate 2023-06-06 18:24:00 79 /min [facility] Respiratory rate 2023-06-06 18:24:00 18 /min [facility] Body height 2023-06-06 18:24:00 162.6 cm [facility] Body weight 2023-06-06 18:24:00 91.173 kg [facility] BMI 2023-06-06 18:24:00 34.50 kg/m2 [facility] Systolic blood pressure 2023-05-11 19:10:00 101 mm[Hg] [facility] Diastolic blood pressure 2023-05-11 19:10:00 57 mm[Hg] [facility] Heart rate 2023-05-11 19:10:00 84 /min [facility] Respiratory rate 2023-05-11 19:10:00 16 /min [facility] Oxygen saturation in Arterial blood by Pulse oximetry 2023-05-11 19:10:00 100 /min [facility] Body height 2023-05-11 18:07:00 162.6 cm [facility] Body weight 2023-05-11 18:07:00 90.719 kg [facility] BMI 2023-05-11 18:07:00 34.33 kg/m2 [facility] Systolic blood pressure 2023-05-02 18:07:00 121 mm[Hg] [facility] Diastolic blood pressure 2023-05-02 18:07:00 84 mm[Hg] [facility] Heart rate 2023-05-02 18:07:00 93 /min [facility] Body temperature 2023-05-02 18:07:00 37.11 [place] [facility] Respiratory rate 2023-05-02 18:07:00 16 /min [facility] Body height 2023-05-02 18:07:00 162.6 cm [facility] Body weight 2023-05-02 18:07:00 92.579 kg [facility] BMI 2023-05-02 18:07:00 35.03 kg/m2 [facility] Oxygen saturation in Arterial blood by Pulse oximetry 2023-05-02 18:07:00 97 /min [facility] Systolic blood pressure 2023-04-09 14:50:00 113 mm[Hg] [facility] Diastolic blood pressure 2023-04-09 14:50:00 88 mm[Hg] [facility] Heart rate 2023-04-09 14:50:00 77 /min [facility] Respiratory rate 2023-04-09 14:50:00 11 /min [facility] Oxygen saturation in Arterial blood by Pulse oximetry 2023-04-09 14:50:00 98 /min [facility] Body temperature 2023-04-09 14:24:00 36.17 [place] [facility] Body height 2023-04-09 12:41:00 162.6 cm [facility] Body weight 2023-04-09 12:41:00 91.627 kg [facility] BMI 2023-04-09 12:41:00 34.67 kg/m2 [facility] Systolic blood pressure 2023-04-09 12:41:00 136 mm[Hg] [facility] Diastolic blood pressure 2023-04-09 12:41:00 93 mm[Hg] [facility] Heart rate 2023-04-09 12:41:00 79 /min [facility] Body temperature 2023-04-09 12:41:00 36.17 [place] [facility] Respiratory rate 2023-04-09 12:41:00 16 /min [facility] Body height 2023-04-09 12:41:00 162.6 cm [facility] Body weight 2023-04-09 12:41:00 91.627 kg [facility] BMI 2023-04-09 12:41:00 34.67 kg/m2 [facility] Oxygen saturation in Arterial blood by Pulse oximetry 2023-04-09 12:41:00 99 /min [facility] Systolic blood pressure 2023-03-29 19:30:00 115 mm[Hg] [facility] Diastolic blood pressure 2023-03-29 19:30:00 78 mm[Hg] [facility] Heart rate 2023-03-29 19:30:00 85 /min [facility] Body temperature 2023-03-29 19:26:00 36.61 [place] [facility] Respiratory rate 2023-03-29 19:26:00 18 /min [facility] Body height 2023-03-29 19:26:00 162.6 cm [facility] Body weight 2023-03-29 19:26:00 93.577 kg [facility] BMI 2023-03-29 19:26:00 35.41 kg/m2 [facility] Oxygen saturation in Arterial blood by Pulse oximetry 2023-03-29 19:26:00 99 /min [facility] Systolic blood pressure 2023-03-13 19:14:00 118 mm[Hg] [facility] Diastolic blood pressure 2023-03-13 19:14:00 81 mm[Hg] [facility] Heart rate 2023-03-13 19:14:00 74 /min [facility] Body height 2023-03-13 19:14:00 162.6 cm [facility] Body weight 2023-03-13 19:14:00 93.441 kg [facility] BMI 2023-03-13 19:14:00 35.36 kg/m2 [facility] Oxygen saturation in Arterial blood by Pulse oximetry 2023-03-13 19:14:00 99 /min [facility] Systolic blood pressure 2023-03-06 20:09:00 119 mm[Hg] [facility] Diastolic blood pressure 2023-03-06 20:09:00 85 mm[Hg] [facility] Heart rate 2023-03-06 20:09:00 79 /min [facility] Respiratory rate 2023-03-06 20:09:00 16 /min [facility] Body height 2023-03-06 20:09:00 162.6 cm [facility] Body weight 2023-03-06 20:09:00 93.804 kg [facility] BMI 2023-03-06 20:09:00 35.50 kg/m2 [facility] Oxygen saturation in Arterial blood by Pulse oximetry 2023-03-06 20:09:00 98 /min [facility] Systolic blood pressure 2023-02-19 19:12:00 121 mm[Hg] [facility] Diastolic blood pressure 2023-02-19 19:12:00 84 mm[Hg] [facility] Heart rate 2023-02-19 19:12:00 83 /min [facility] Body height 2023-02-19 19:12:00 162.6 cm [facility] Body weight 2023-02-19 19:12:00 93.35 kg [facility] BMI 2023-02-19 19:12:00 35.33 kg/m2 [facility] Systolic blood pressure 2023-01-30 19:51:00 118 mm[Hg] [facility] Diastolic blood pressure 2023-01-30 19:51:00 80 mm[Hg] [facility] Heart rate 2023-01-30 19:51:00 89 /min [facility] Respiratory rate 2023-01-30 19:51:00 18 /min [facility] Body height 2023-01-30 19:51:00 162.6 cm [facility] Body weight 2023-01-30 19:51:00 93.577 kg [facility] BMI 2023-01-30 19:51:00 35.41 kg/m2 [facility] Oxygen saturation in Arterial blood by Pulse oximetry 2023-01-30 19:51:00 97 /min [facility] Systolic blood pressure 2023-01-19 19:30:00 109 mm[Hg] [facility] Diastolic blood pressure 2023-01-19 19:30:00 77 mm[Hg] [facility] Heart rate 2023-01-19 19:30:00 92 /min [facility] Body temperature 2023-01-19 19:30:00 36.56 [place] [facility] Respiratory rate 2023-01-19 19:30:00 18 /min [facility] Body height 2023-01-19 19:30:00 162.6 cm [facility] Body weight 2023-01-19 19:30:00 93.668 kg [facility] BMI 2023-01-19 19:30:00 35.45 kg/m2 [facility] Oxygen saturation in Arterial blood by Pulse oximetry 2023-01-19 19:30:00 98 /min [facility] Systolic blood pressure 2023-01-09 14:59:00 112 mm[Hg] [facility] Diastolic blood pressure 2023-01-09 14:59:00 80 mm[Hg] [facility] Heart rate 2023-01-09 14:59:00 78 /min [facility] Respiratory rate 2023-01-09 14:59:00 16 /min [facility] Body height 2023-01-09 14:59:00 162.6 cm [facility] Body weight 2023-01-09 14:59:00 94.348 kg [facility] BMI 2023-01-09 14:59:00 35.70 kg/m2 [facility] Oxygen saturation in Arterial blood by Pulse oximetry 2023-01-09 14:59:00 98 /min [facility] Systolic blood pressure 2023-01-01 18:36:00 131 mm[Hg] Patient just had a [employer] drink [facility] Diastolic blood pressure 2023-01-01 18:36:00 92 mm[Hg] Patient just had a [employer] drink [facility] Heart rate 2023-01-01 18:36:00 86 /min [facility] Body temperature 2023-01-01 18:36:00 36.44 [place] [facility] Body height 2023-01-01 18:36:00 162.6 cm [facility] Body weight 2023-01-01 18:36:00 94.348 kg [facility] BMI 2023-01-01 18:36:00 35.70 kg/m2 [facility] Oxygen saturation in Arterial blood by Pulse oximetry 2023-01-01 18:36:00 96 /min [facility] Systolic blood pressure 2023-01-01 15:13:00 112 mm[Hg] [facility] Diastolic blood pressure 2023-01-01 15:13:00 80 mm[Hg] [facility] Heart rate 2023-01-01 15:13:00 76 /min [facility] Respiratory rate 2023-01-01 15:13:00 18 /min [facility] Body height 2023-01-01 15:13:00 162.6 cm [facility] Body weight 2023-01-01 15:13:00 94.348 kg [facility] BMI 2023-01-01 15:13:00 35.70 kg/m2 [facility] Systolic blood pressure 2022-12-11 16:20:00 100 mm[Hg] [facility] Diastolic blood pressure 2022-12-11 16:20:00 79 mm[Hg] [facility] Heart rate 2022-12-11 16:20:00 79 /min [facility] Respiratory rate 2022-12-11 16:20:00 16 /min [facility] Body temperature 2022-12-11 14:44:00 36.67 [place] [facility] Body height 2022-12-11 14:44:00 162.6 cm [facility] Body weight 2022-12-11 14:44:00 93.441 kg [facility] BMI 2022-12-11 14:44:00 35.36 kg/m2 [facility] Oxygen saturation in Arterial blood by Pulse oximetry 2022-12-11 14:44:00 100 /min [facility] Systolic blood pressure 2022-11-29 16:18:00 115 mm[Hg] [facility] Diastolic blood pressure 2022-11-29 16:18:00 80 mm[Hg] [facility] Heart rate 2022-11-29 16:18:00 77 /min [facility] Body temperature 2022-11-29 16:18:00 36.67 [place] [facility] Respiratory rate 2022-11-29 16:18:00 18 /min [facility] Body height 2022-11-29 16:18:00 162.6 cm [facility] Body weight 2022-11-29 16:18:00 95.119 kg [facility] BMI 2022-11-29 16:18:00 35.99 kg/m2 [facility] Oxygen saturation in Arterial blood by Pulse oximetry 2022-11-29 16:18:00 98 /min [facility] Systolic blood pressure 2022-10-25 19:08:00 134 mm[Hg] [facility] Diastolic blood pressure 2022-10-25 19:08:00 84 mm[Hg] [facility] Heart rate 2022-10-25 19:08:00 79 /min [facility] Body temperature 2022-10-25 19:08:00 36.33 [place] [facility] Respiratory rate 2022-10-25 19:08:00 16 /min [facility] Body height 2022-10-25 19:08:00 162.6 cm [facility] Body weight 2022-10-25 19:08:00 99.02 kg [facility] BMI 2022-10-25 19:08:00 37.47 kg/m2 [facility] Oxygen saturation in Arterial blood by Pulse oximetry 2022-10-25 19:08:00 99 /min [facility] Systolic blood pressure 2022-10-24 14:40:00 116 mm[Hg] [facility] Diastolic blood pressure 2022-10-24 14:40:00 82 mm[Hg] [facility] Heart rate 2022-10-24 14:40:00 73 /min [facility] Body height 2022-10-24 14:40:00 162.6 cm [facility] Body weight 2022-10-24 14:40:00 99.791 kg [facility] BMI 2022-10-24 14:40:00 37.76 kg/m2 [facility] Oxygen saturation in Arterial blood by Pulse oximetry 2022-10-24 14:40:00 98 /min [facility] Systolic blood pressure 2022-10-18 20:33:00 126 mm[Hg] [facility] Diastolic blood pressure 2022-10-18 20:33:00 85 mm[Hg] [facility] Heart rate 2022-10-18 20:33:00 83 /min [facility] Body height 2022-10-18 20:33:00 162.6 cm [facility] Body weight 2022-10-18 20:33:00 98.385 kg [facility] BMI 2022-10-18 20:33:00 37.23 kg/m2 [facility] Oxygen saturation in Arterial blood by Pulse oximetry 2022-10-18 20:33:00 99 /min [facility] Systolic blood pressure 2022-09-21 17:31:00 125 mm[Hg] [facility] Diastolic blood pressure 2022-09-21 17:31:00 81 mm[Hg] [facility] Heart rate 2022-09-21 17:31:00 77 /min [facility] Body temperature 2022-09-21 17:31:00 37.17 [place] [facility] Body height 2022-09-21 17:31:00 162.6 cm [facility] Body weight 2022-09-21 17:31:00 98.431 kg [facility] BMI 2022-09-21 17:31:00 37.25 kg/m2 [facility] Oxygen saturation in Arterial blood by Pulse oximetry 2022-09-21 17:31:00 97 /min [facility] Systolic blood pressure 2022-09-15 17:50:00 96 mm[Hg] [facility] Diastolic blood pressure 2022-09-15 17:50:00 67 mm[Hg] [facility] Heart rate 2022-09-15 17:50:00 81 /min [facility] Respiratory rate 2022-09-15 17:50:00 18 /min [facility] Body temperature 2022-09-15 16:40:00 37 [place] [facility] Body height 2022-09-15 16:40:00 162.6 cm [facility] Body weight 2022-09-15 16:40:00 102.513 kg [facility] BMI 2022-09-15 16:40:00 38.79 kg/m2 [facility] Oxygen saturation in Arterial blood by Pulse oximetry 2022-09-15 16:40:00 100 /min [facility] Systolic blood pressure 2022-09-13 15:34:00 114 mm[Hg] [facility] Diastolic blood pressure 2022-09-13 15:34:00 79 mm[Hg] [facility] Heart rate 2022-09-13 15:34:00 78 /min [facility] Body weight 2022-09-13 15:34:00 102.83 kg [facility] BMI 2022-09-13 15:34:00 38.91 kg/m2 [facility] Oxygen saturation in Arterial blood by Pulse oximetry 2022-09-13 15:34:00 98 /min [facility] Systolic blood pressure 2022-09-12 15:38:00 123 mm[Hg] [facility] Diastolic blood pressure 2022-09-12 15:38:00 71 mm[Hg] [facility] Heart rate 2022-09-12 15:38:00 70 /min [facility] Body temperature 2022-09-12 15:38:00 36.94 [place] [facility] Respiratory rate 2022-09-12 15:38:00 16 /min [facility] Body height 2022-09-12 15:38:00 162.6 cm [facility] Body weight 2022-09-12 15:38:00 102.059 kg [facility] BMI 2022-09-12 15:38:00 38.62 kg/m2 [facility] Oxygen saturation in Arterial blood by Pulse oximetry 2022-09-12 15:38:00 98 /min [facility] Systolic blood pressure 2022-08-21 15:34:00 123 mm[Hg] [facility] Diastolic blood pressure 2022-08-21 15:34:00 85 mm[Hg] [facility] Heart rate 2022-08-21 15:34:00 70 /min [facility] Body height 2022-08-21 15:34:00 162.6 cm [facility] Body weight 2022-08-21 15:34:00 100.699 kg [facility] BMI 2022-08-21 15:34:00 38.11 kg/m2 [facility] Systolic blood pressure 2022-08-16 19:15:00 135 mm[Hg] [facility] Diastolic blood pressure 2022-08-16 19:15:00 96 mm[Hg] [facility] Heart rate 2022-08-16 19:15:00 74 /min [facility] Respiratory rate 2022-08-16 19:15:00 20 /min [facility] Body height 2022-08-16 19:15:00 162.6 cm [facility] Body weight 2022-08-16 19:15:00 99.791 kg [facility] BMI 2022-08-16 19:15:00 37.76 kg/m2 [facility] Oxygen saturation in Arterial blood by Pulse oximetry 2022-08-16 19:15:00 98 /min [facility] Systolic blood pressure 2022-08-15 17:30:00 114 mm[Hg] [facility] Diastolic blood pressure 2022-08-15 17:30:00 79 mm[Hg] [facility] Heart rate 2022-08-15 17:30:00 81 /min [facility] Body temperature 2022-08-15 17:30:00 37 [place] [facility] Respiratory rate 2022-08-15 17:30:00 18 /min [facility] Body height 2022-08-15 17:30:00 162.6 cm [facility] Body weight 2022-08-15 17:30:00 99.791 kg [facility] BMI 2022-08-15 17:30:00 37.76 kg/m2 [facility] Systolic blood pressure 2022-08-02 19:33:00 132 mm[Hg] [facility] Diastolic blood pressure 2022-08-02 19:33:00 90 mm[Hg] [facility] Heart rate 2022-08-02 19:33:00 73 /min [facility] Body temperature 2022-08-02 19:33:00 36.61 [place] [facility] Respiratory rate 2022-08-02 19:33:00 18 /min [facility] Body height 2022-08-02 19:33:00 162.6 cm [facility] Body weight 2022-08-02 19:33:00 97.977 kg [facility] BMI 2022-08-02 19:33:00 37.08 kg/m2 [facility] Systolic blood pressure 2022-07-24 15:18:00 130 mm[Hg] [facility] Diastolic blood pressure 2022-07-24 15:18:00 86 mm[Hg] [facility] Heart rate 2022-07-24 15:18:00 73 /min [facility] Body height 2022-07-24 15:18:00 162.6 cm [facility] Body weight 2022-07-24 15:18:00 100.245 kg [facility] BMI 2022-07-24 15:18:00 37.93 kg/m2 [facility] Oxygen saturation in Arterial blood by Pulse oximetry 2022-07-24 15:18:00 98 /min [facility] Systolic blood pressure 2022-07-18 16:04:00 128 mm[Hg] [facility] Diastolic blood pressure 2022-07-18 16:04:00 86 mm[Hg] [facility] Heart rate 2022-07-18 16:04:00 83 /min [facility] Body height 2022-07-18 16:04:00 162.6 cm [facility] Body weight 2022-07-18 16:04:00 97.523 kg [facility] BMI 2022-07-18 16:04:00 36.90 kg/m2 [facility] Oxygen saturation in Arterial blood by Pulse oximetry 2022-07-18 16:04:00 100 /min [facility] Systolic blood pressure 2022-07-17 17:07:00 122 mm[Hg] [facility] Diastolic blood pressure 2022-07-17 17:07:00 90 mm[Hg] [facility] Heart rate 2022-07-17 17:07:00 74 /min [facility] Body temperature 2022-07-17 17:07:00 36.72 [place] [facility] Respiratory rate 2022-07-17 17:07:00 16 /min [facility] Body height 2022-07-17 17:07:00 162.6 cm [facility] Body weight 2022-07-17 17:07:00 97.569 kg [facility] BMI 2022-07-17 17:07:00 36.92 kg/m2 [facility] Oxygen saturation in Arterial blood by Pulse oximetry 2022-07-17 17:07:00 98 /min [facility] Systolic blood pressure 2022-06-30 21:20:00 101 mm[Hg] [facility] Diastolic blood pressure 2022-06-30 21:20:00 70 mm[Hg] [facility] Heart rate 2022-06-30 21:20:00 76 /min [facility] Respiratory rate 2022-06-30 21:10:00 18 /min [facility] Body temperature 2022-06-30 20:27:00 36.67 [place] [facility] Body height 2022-06-30 20:27:00 162.6 cm [facility] Body weight 2022-06-30 20:27:00 90.719 kg [facility] BMI 2022-06-30 20:27:00 34.33 kg/m2 [facility] Oxygen saturation in Arterial blood by Pulse oximetry 2022-06-30 20:27:00 95 /min [facility] Systolic blood pressure 2022-06-20 16:23:00 117 mm[Hg] [facility] Diastolic blood pressure 2022-06-20 16:23:00 77 mm[Hg] [facility] Heart rate 2022-06-20 16:23:00 87 /min [facility] Body temperature 2022-06-20 16:23:00 37 [place] [facility] Respiratory rate 2022-06-20 16:23:00 18 /min [facility] Body height 2022-06-20 16:23:00 162.6 cm [facility] Body weight 2022-06-20 16:23:00 95.709 kg [facility] BMI 2022-06-20 16:23:00 36.22 kg/m2 [facility] Body weight 2022-06-09 15:45:00 91.173 kg [facility] BMI 2022-06-09 15:45:00 34.50 kg/m2 [facility] Systolic blood pressure 2022-05-16 15:31:00 133 mm[Hg] [facility] Diastolic blood pressure 2022-05-16 15:31:00 87 mm[Hg] [facility] Heart rate 2022-05-16 15:31:00 87 /min [facility] Respiratory rate 2022-05-16 15:31:00 12 /min [facility] Body height 2022-05-16 15:31:00 162.6 cm [facility] Body weight 2022-05-16 15:31:00 91.173 kg [facility] BMI 2022-05-16 15:31:00 34.50 kg/m2 [facility] Oxygen saturation in Arterial blood by Pulse oximetry 2022-05-16 15:31:00 99 /min [facility] Procedures Procedure Date / Time Performed Performing Clinician Source OB TRANSVAGINAL 2024-08-26 19:19:04 Carolina Carmen [facility] POCT URINALYSIS W/O SPECIFIC GRAVITY 2024-08-26 18:54:00 Carolina [facility] OB TRANSVAGINAL 2024-08-14 20:26:25 Carolina [facility] POCT TEST 2024-08-14 00:00:00 Carolina [facility] POCT URINALYSIS W/O SPECIFIC GRAVITY 2024-08-14 00:00:00 Carolina Carmen [facility] POCT HEMOGLOBIN A1C TEST 2024-05-05 18:27:00 Marie Garzon [facility] FLU VACC (), 6 MO-6 4 YRS, .5ML, IM, TIV (FLUCELVAX) 2024-04-21 21:31:52 Doctor Unassigned, Apison [facility] PELVIS COMPLETE WITH TRANSVAGINAL 2024-04-21 21:09:55 Brianna Figueroasol [facility] SURGICAL PATHOLOGY EXAM 2024-03-24 17:00:00 Marilu [facility] [id number] [place] ANRCT XM SURG REQ ANES GENERAL SPI/EDRL DX 2024-03-24 16:15:00 Marilu [facility] [id number] [place] BX ANORECTAL WALL ANAL APPROACH 2024-03-24 16:15:00 Marilu [facility] [id number] [place] ANOSCOPY W/BX SINGLE/MULTIPLE 2024-03-24 16:15:00 Marilu [facility] FISSURECTOMY 2024-03-24 16:15:00 Marilu [facility] POCT GLUCOSE (AUTOMATED) 2024-03-24 14:47:00 Marilu [facility] POCT GLUCOSE (AUTOMATED) 2024-03-24 14:47:00 Marilu [facility] POCT TEST 2024-03-24 14:30:00 Thalia Ferreira [facility] POCT TEST 2024-03-24 14:30:00 Thalia Ferreira [facility] FL TIME OR (NON-REPORTABLE) 2024-03-20 18:54:00 Peyman [facility] POCT GLUCOSE (AUTOMATED) 2024-03-20 18:00:00 Peyman [facility] POCT TEST 2024-03-20 17:40:00 [facility] POCT HEMOGLOBIN A1C TEST 2024-02-04 00:00:00 Marie Garzon [facility] POCT URINALYSIS W/O SPECIFIC GRAVITY 2023-12-19 19:30:00 Abiel Alfaro [facility] POCT TEST 2023-12-19 19:16:00 Abiel Alfaro [facility] POCT HEMOGLOBIN A1C TEST 2023-10-15 20:36:00 Marie Garzon [facility] FL TIME OR (NON-REPORTABLE) 2023-09-12 21:03:57 Curtis Morley [facility] POCT GLUCOSE (AUTOMATED) 2023-09-12 20:21:00 Curtis Morley [facility] POCT TEST 2023-09-12 20:03:00 Curtis Morley [facility] CONSENT/REFUSAL FOR DIAGNOSI S AND TREATMENT 2023-09-12 19:54:45 Doctor Unassigned, Apison [facility] ANTIPHOSPHOLIPID ANTIBODY EVALUATION-SST 2023-09-10 22:21:00 Carmen Figueroa [facility] ANTIPHOSPHOLIPID ANTIBODY TE STS AND EVALUATION 2023-09-10 22:21:00 Kerr-Ceballos, [facility] ANTIPHOSPHOLIPID ANTIBODY EVALUATION-LT BLUE 2023-09-10 22:21:00 Carmen Figueroa [facility] CONSENT FOR CONTRACEPTION 2023-09-10 06:01:00 Doctor Unassigned, Apison [facility] FLU VACC (), 6 MO-6 4 YRS, .5ML, IM, QUAD (FLUCELVAX) 2023-06-06 18:56:21 Taylor Verdin [facility] PNEUMOCOCCAL VACCINE, 23-RUTHIE ENT (PNEUMOVAX) 2023-06-06 18:56:20 Taylor Verdin [facility] FL TIME OR (NON-REPORTABLE) 2023-05-11 19:01:23 Curtis Morley [facility] POCT GLUCOSE (AUTOMATED) 2023-05-11 18:11:00 Curtis Morley [facility] RPR (DX) W/REFL TITER AND$CONFIRMATORY TESTING-Q 2023-05-02 18:53:00 Ez Palacio [facility] POCT TEST 2023-05-02 00:00:00 Ez Palacio [facility] SURGICAL PATHOLOGY EXAM 2023-04-09 14:05:00 Norbert Diaz [facility] ESOPHAGOGASTRODUODENOSCOPY 2023-04-09 13:44:00 Norbert Diaz [facility] EGD (ENDO) 2023-04-09 13:39:47 Taylor Verdin [facility] EGD (ENDO) 2023-04-09 13:39:47 Taylor Verdin [facility] POCT GLUCOSE (AUTOMATED) 2023-04-09 13:03:00 Norbert Diaz [facility] POCT GLUCOSE (AUTOMATED) 2023-04-09 13:03:00 Norbert Diaz [facility] ASSIGNMENT OF BENEFITS 2023-04-09 12:30:17 Doctor Unassigned, Apison [facility] POCT TEST 2023-04-09 00:00:00 Tacos Roman [facility] POCT TEST 2023-04-09 00:00:00 Abel Tacos [facility] DME/SUPPLY JUSTIFICATION 2023-03-19 05:01:00 Doctor Unassigned, Apison [facility] PATIENT QUESTIONNAIRE 2023-02-18 05:01:00 Doctor Unassigned, Apison [facility] DME/SUPPLY JUSTIFICATION 2023-01-30 05:01:00 Doctor Unassigned, Apison [facility] COMP. METABOLIC PANEL ([id number]) 2023-01-09 15:40:00 Harjinder James [facility] SEDIMENTATION RATE 2023-01-09 15:40:00 Harjinder James [facility] CBC WITH DIFF 2023-01-09 15:40:00 Harjinder James [facility] VITAMIN D, 25-OH 2023-01-09 15:40:00 Harjinder James [facility] ANTICARDIOLIPIN ANTIBODIES 2023-01-01 15:54:00 Ez Palacio [facility] ANTI-B2 GLYCOPROTEIN I AB 2023-01-01 15:54:00 Ez Palacio [facility] DISCLOSURE AND CONSENT, MEDI MAYTE AND SURGICAL PROCEDURES 2023-01-01 05:01:00 Doctor Unassigned, Apison [facility] FL TIME OR (NON-REPORTABLE) 2022-12-11 15:57:25 Curtis Morley Scooter [facility] POCT GLUCOSE (AUTOMATED) 2022-12-11 15:06:00 Curtis Morley [facility] POCT TEST 2022-12-11 14:45:00 Curtis Morley [facility] POCT SARS-COV-2 ANTIGEN (BIN AX NOW) 2022-11-29 17:25:00 Taylor Verdin [facility] POCT MOLECULAR STREP 2022-11-29 17:07:00 Taylor Verdin [facility] EMG/NCV 2022-10-26 05:01:00 Skyler Ferrari [facility] AUTHORIZATION TO RELEASE PHI TO [facility] 2022-10-18 06:01:00 Doctor Unassigned, Apison [facility] FL TIME OR (NON-REPORTABLE) 2022-09-15 17:38:14 Curtis Morley [facility] POCT GLUCOSE (AUTOMATED) 2022-09-15 16:38:00 Curtis Morley [facility] POCT TEST 2022-09-15 16:30:00 Curtis Morley [facility] CONSENT/REFUSAL FOR DIAGNOSI S AND TREATMENT 2022-09-12 15:19:35 Doctor Unassigned, Apison [facility] MISCELLANEOUS SEND OUT TEST 2022-08-21 16:05:00 Bruce [facility] DIAGNOSTIC MANAGEMENT TEAM; SPECIAL COAGULATION EVALUATION 2022-08-21 16:05:00 Bruce [facility] ANTIPHOSPHOLIPID ANTIBODY TE STS AND EVALUATION 2022-08-21 16:05:00 Bruce [facility] ANTIPHOSPHOLIPID ANTIBODY EVALUATION-LT BLUE 2022-08-21 16:05:00 Bruce [facility] ANTICARDIOLIPIN ANTIBODIES 2022-08-21 16:05:00 Bruce [facility] ANTI-B2 GLYCOPROTEIN I AB 2022-08-21 16:05:00 Bruce [facility] ANTIPHOSPHOLIPID ANTIBODY EVALUATION-SST 2022-08-21 16:05:00 Bruce [facility] MR LUMBAR SPINE WO CONTRAST 2022-08-16 20:31:57 Skyler Ferrari [facility] US PELVIS COMPLETE WITH TRANSVAGINAL 2022-07-26 15:39:56 Bruce [facility] POCT TEST 2022-07-17 00:00:00 Bruce [facility] FL TIME OR (NON-REPORTABLE) 2022-06-30 21:00:00 [facility] 2022-06-30 20:15[facility]00 [facility] 2022-06-20 00:00:00 Adum, Argentina Vidal [facility] DISCLOSURE AND CONSENT, MEDI MAYTE AND SURGICAL PROCEDURES 2022-06-16 05:01:00 Doctor Unassigned, Apison [facility] Encounters Start Date/Time End Date/Time Encounter Type Admission Type Attending Clinicians Care Facility Care Department Encounter ID Source 2024-08-04 10:10:24 Outpatient Annalee POTTSMARILU AZALIA AZALIA MICHEL [facility] [id number] [facility] 2024-01-25 11:33:33 Outpatient AZALIA ORELLANA [facility] [id number] [facility] 2021-11-08 15:18:20 Outpatient AZALIA ORELLANA [facility] [id number] [facility] 2021-06-13 16:13:46 Emergency [facility] [id number] [facility] 2021-06-12 19:13:39 Outpatient AZALIA MICHEL [facility] [id number] [facility] 2021-06-12 02:02:49 Outpatient CURTIS MORLEY [facility] [id number] [facility] 2021-06-10 22:07:19 Outpatient R NORBERT DIAZ [facility] [id number] [facility] 2024-10-06 11:40:00 2024-10-06 11:40:00 Outpatient ADELAIDA LUNSFORD CHRISTINE [facility] [id number] [facility] 2024-09-15 14:30:00 2024-09-15 14:30:00 Outpatient CURTIS HARRISON [facility] [id number] [facility] 2024-09-03 13:30:00 2024-09-03 13:30:00 Outpatient MARIE JULES [facility] [id number] [facility] 2024-08-26 13:00:00 2024-08-26 13:21:22 Outpatient CARMEN ZARATE MARISOL [facility] [id number] [facility] 2024-08-26 13:00:00 2024-08-26 13:21:22 Routine Visit Rose Espinozal [facility] 1.20.114 350.1.13.10 4.2.7.2.686 [id number] [facility] 2024-08-25 15:15:00 2024-08-25 15:30:00 Service Dispatcher Visit Lab, Ang - Ad[facility]ida [facility] 1.20.114 350.1.13.10 4.2.7.2.686 [id number] [facility] 2024-08-22 00:00:00 2024-08-25 14:35:52 Telephone MariluAzalia hester [facility] BU[facility] 1.284.114 350.1.13.10 4.2.7.2.686 [id number] [facility] 2024-08-25 13:40:00 2024-08-25 14:26:52 Outpatient R ADELAIDA RAMOS [facility] [id number] [facility] 2024-08-25 13:40:00 2024-08-25 14:26:52 Office Visit [facility] 1.284.114 350.1.13.10 4.2.7.2.686 [id number] [facility] 2024-08-20 00:00:00 2024-08-25 10:51:23 Telephone Marilu Azalia [facility] BUILD[facility] 1.2840.114 350.1.13.10 4.2.7.2.686 [id number] [facility] 2024-08-20 14:00:00 2024-08-20 15:16:14 Outpatient R MARIE GARZON [facility] [id number] [facility] 2024-08-20 14:00:00 2024-08-20 15:16:14 Office Visit Marie Garzon [facility] 1.84.114 350.1.13.10 4.2.7.2.686 [id number] [facility] 2024-08-18 00:00:00 2024-08-20 10:08:04 Patient Secure Msg Marie Garzon [facility] 1.840.114 350.1.13.10 4.2.7.2.686 [id number] [facility] 2024-08-18 13:00:00 2024-08-18 13:15:00 Service Dispatcher Visit 2, Adc Lab Curtis Avina 2, Adc Lab [facility] NAL BUILDING 1.840.114 350.1.13.10 4.2.7.2.686 [id number] [facility] 2024-08-18 13:00:00 2024-08-18 13:00:00 Outpatient CURTIS CEBALLOS [facility] [id number] [facility] 2024-08-14 00:00:00 2024-08-15 08:12:58 Refill Marie Garzon [facility] OFF[facility] BUILD[facility] 1.840.114 350.1.13.10 4.2.7.2.686 [id number] [facility] 2024-08-14 14:45:00 2024-08-14 15:10:16 Outpatient CARMEN ZARATE MARISOL [facility] [id number] [facility] 2024-08-14 14:45:00 2024-08-14 15:10:16 Service Dispatcher Visit Lab, Ang - Db Carmen Espinoza Lab, Ang - Db [facility] 1.114 350.1.13.10 4.2.7.2.686 [id number] [facility] 2024-08-14 13:30:00 2024-08-14 14:11:46 Initial Visit Juan Manuel porter [facility] 1.114 350.1.13.10 4.2.7.2.686 [id number] [facility] 2024-08-12 16:00:00 2024-08-12 16:00:00 Outpatient R ROSIBEL HUERTA [facility] [id number] [facility] 2024-08-11 00:00:00 2024-08-11 12:18:45 Telephone SullivanMundo porter [facility] 1..114 350.1.13.10 4.2.7.2.686 [id number] [facility] 2024-08-07 14:00:00 2024-08-07 14:00:00 Outpatient R [facility] [id number] [facility] 2024-08-04 13:30:00 2024-08-04 13:30:00 Outpatient R MARIE GARZON [facility] [id number] [facility] 2024-07-30 14:00:00 2024-07-30 23:59:00 Outpatient R GERALD VILLAVICENCIO [facility] [id number] [facility] 2024-07-30 14:00:00 2024-07-30 23:59:00 Hospital Encounter Gerald [facility]enc[facility] 1.114 350.1.13.10 4.2.7.2.686 [id number] [facility] 2024-07-30 13:20:00 2024-07-30 14:20:11 Office Visit Gerald Villavicencio [facility] 1.2.114 350.1.13.10 4.2.7.2.686 [id number] [facility] 2024-07-24 00:00:00 2024-07-25 07:52:54 [facility] 1.2.114 350.1.13.10 4.2.7.2.686 [id number] [facility] 2024-07-24 00:00:00 2024-07-25 05:17:01 [facility] 1.20.114 350.1.13.10 4.2.7.2.686 [id number] [facility] 2024-07-24 00:00:00 2024-07-24 13:47:45 Refill Holly Fregoso [facility]ILD[facility] 1..114 350.1.13.10 4.2.7.2.686 [id number] [facility] 2024-07-24 00:00:00 2024-07-24 13:21:02 Refill Beth Pham [facility] 1.114 350.1.13.10 4.2.7.2.686 [id number] [facility] 2024-07-24 00:00:00 2024-07-24 13:13:06 Telephone Azalia Michel [facility] NAL BUILD[facility] 1.2.114 350.1.13.10 4.2.7.2.686 [id number] [facility] 2024-07-22 11:00:00 2024-07-22 11:00:00 Outpatient R MARIE GARZON [facility] [id number] [facility] 2024-07-18 00:00:00 2024-07-21 15:34:52 [facility] 1.2.840.114 350.1.13.10 4.2.7.2.686 [id number] [facility] 2024-07-17 14:00:00 2024-07-17 15:46:11 Outpatient R AZALIA MICHEL [facility] [id number] [facility] 2024-07-17 14:00:00 2024-07-17 15:46:11 Office Visit Azalia Michel [facility] BUILD[facility] 1..840.114 350.1.13.10 4.2.7.2.686 [id number] [facility] 2024-07-14 13:00:00 2024-07-14 13:00:00 Outpatient R MARIE GARZON [facility] [id number] [facility] 2024-07-09 00:00:00 2024-07-09 22:43:39 [facility] 1.2.840.114 350.1.13.10 4.2.7.2.686 [id number] [facility] 2024-07-05 00:00:00 2024-07-08 15:34:19 Telephone Matheus [facility] KEITH?[facility] OFF[facility] BUILD[facility] 1..840.114 350.1.13.10 4.2.7.2.686 [id number] [facility] 2024-07-07 13:00:00 2024-07-07 13:00:00 Outpatient R MARIE GARZON [facility] [id number] [facility] 2024-07-02 00:00:00 2024-07-02 16:37:58 Telephone Marie Garzon [facility]?KENNETH [facility] 1.2.840.114 350.1.13.10 4.2.7.2.686 [id number] [facility] 2024-06-25 13:00:00 2024-06-25 13:45:54 Outpatient R CURTIS MORLEY [facility] [id number] [facility] 2024-06-25 13:00:00 2024-06-25 13:45:54 Office Visit Curtis Morley [facility] 1.2.840.114 350.1.13.10 4.2.7.2.686 [id number] [facility] 2024-06-22 00:00:00 2024-06-24 13:06:15 Adelaida Davila [facility] 1..840.114 350.1.13.10 4.2.7.2.686 [id number] [facility] 2024-06-20 00:00:00 2024-06-23 10:29:41 [facility] 1..840.114 350.1.13.10 4.2.7.2.686 [id number] [facility] 2024-06-20 00:00:00 2024-06-23 09:49:31 Patient Secure Msg Ramirez Sophia [facility] OFFICE BUILDING 1.2.840.114 350.1.13.10 4.2.7.2.686 [id number] [facility] 2024-06-20 11:30:00 2024-06-20 11:55:28 Outpatient SOPHIA WISEMAN [facility] [id number] [facility] 2024-06-20 11:30:00 2024-06-20 11:55:28 Office Visit Sophia Ramirez [facility] KE[facility] 1.114 350.1.13.10 4.2.7.2.686 [id number] [facility] 2024-06-19 14:00:00 2024-06-19 14:00:00 Outpatient CURTIS HARRISON [facility] [id number] [facility] 2024-06-17 00:00:00 2024-06-17 11:28:52 [facility] 1.114 350.1.13.10 [id number] [facility] 2024-06-16 09:40:00 2024-06-16 09:40:00 Outpatient ADELAIDA LUNSFORD [facility] [id number] [facility] 2024-05-05 00:00:00 2024-06-07 18:23:25 [facility] 1.114 350.1.13.10 [id number] [facility] 2024-05-15 00:00:00 2024-05-21 09:32:30 Telephone Skyler Ferrari [facility] 1.114 350.1.13.10 4.2.7.2.686 [id number] [facility] 2024-05-20 00:00:00 2024-05-21 07:24:40 Refjo-ann Ramos Adelaida [facility] 1.114 350.1.13.10 4.2.7.2.686 [id number] 044 [id number] [facility] 2024-05-20 10:00:00 2024-05-20 10:52:02 Outpatient R PAULO CHAMORROSSICA [facility] [id number] [facility] 2024-05-20 10:00:00 2024-05-20 10:52:02 Office Visit Paulo ChamorroCritical access hospital?[facility] 1..840.114 350.1.13.10 4.2.7.2.686 [id number] [facility] 2024-05-19 13:30:00 2024-05-19 13:30:00 [facility] [id number] [facility] 2024-04-05 00:00:00 2024-05-10 18:25:19 Patient Secure [facility] 1..840.114 350.1.13.10 4.2.7.2.686 [id number] [facility] 2024-05-05 13:30:00 2024-05-05 14:02:00 Outpatient R MARIE GARZON [facility] [id number] [facility] 2024-05-05 13:30:00 2024-05-05 14:02:00 Office Visit Marie Garzon [facility] 1..840.114 350.1.13.10 4.2.7.2.686 [id number] 220 [id number] [facility] 2024-04-30 00:00:00 2024-04-30 16:13:45 Letter (Out) [facility] 1..840.114 350.1.13.10 4.2.7.2.686 [id number] 019 [id number] [facility] 2024-04-21 15:11:30 2024-04-21 23:59:00 Outpatient R JUAN MANUEL Porter, CARMEN KERR-HYACINTH S, CARMEN [facility] [id number] [facility] 2024-04-21 15:00:00 2024-04-21 23:59:00 Hospital Encounter Radhai charlotte Carmen [facility] 1.2.840.114 350.1.13.10 4.2.7.2.686 [id number] [facility] 2024-04-21 16:10:00 2024-04-21 16:30:00 Imm/Inj Visit Nurse, Raj Deng Juan Manuel charlotte, Carmen Nurse, Raj Deng [facility] 1.2.840.114 350.1.13.10 4.2.7.2.686 [id number] [id number] [facility] 2024-04-21 14:20:00 2024-04-21 14:51:49 Office Visit Adelaida Ramos [facility] MEDICAL OFFICE BUILDING 1.2.840.114 350.1.13.10 4.2.7.2.686 [id number] 044 [id number] [facility] 2024-04-18 00:00:00 2024-04-18 11:09:17 Telephone Brianna Espinozasol [facility] NAL BUILDING 1.2.840.114 350.1.13.10 4.2.7.2.686 [id number] [facility] 2024-04-18 00:00:00 2024-04-18 09:28:46 Case Management Brianna Espinozasol [facility] NAL BUILDING 1.2.840.114 350.1.13.10 4.2.7.2.686 [id number] [facility] 2024-04-16 00:00:00 2024-04-16 11:38:28 Marie Zabala [facility] MULTISPEC IALTY [facility] 1.114 350.1.13.10 4.2.7.2.686 [id number] [facility] 2024-04-15 15:00:00 2024-04-15 15:29:22 Outpatient R CARMEN ESPINOZA CARMEN [facility] [id number] [facility] 2024-04-15 15:00:00 2024-04-15 15:29:22 Office Visit Juan Manuel porter Carmen [facility] BUILDING 1.114 350.1.13.10 4.2.7.2.686 [id number] [facility] 2024-03-11 00:00:00 2024-04-12 18:20:07 Patient Secure Msg Doctor Unassigned, Apison Doctor Unassigned, Apison [facility] 1.114 350.1.13.10 4.2.7.2.686 [id number] [id number] [facility] 2024-04-10 11:45:00 2024-04-10 13:36:21 Outpatient R AZALIA MICHEL AZALIA [facility] [id number] [facility] 2024-04-10 11:45:00 2024-04-10 13:36:21 Office Visit Azalia Michel [facility] BUILD[facility] 1.114 350.1.13.10 4.2.7.2.686 [id number] [facility] 2024-04-07 00:00:00 2024-04-07 16:12:34 Telephone Beth Ph[facility] 1. 350.1.13.10 4.2.7.2.686 [id number] 011 [id number] [facility] 2024-04-05 00:00:00 2024-04-07 14:32:20 Refill Beth Pham [facility] 1.114 350.1.13.10 4.2.7.2.686 [id number] 011 [id number] [facility] 2024-04-05 00:00:00 2024-04-07 09:44:40 Refill Taylor Verdin [facility] MEDICAL OFFICE BUILDING 1.114 350.1.13.10 4.2.7.2.686 [id number] 044 [id number] [facility] 2024-04-05 00:00:00 2024-04-05 17:52:40 Telephone Azalia Michel [facility] NAL BUILDING 1.114 350.1.13.10 4.2.7.2.686 [id number] [facility] 2024-04-04 15:30:00 2024-04-04 16:02:49 Outpatient R BETH PHAM [facility] [id number] [facility] 2024-04-04 15:30:00 2024-04-04 16:02:49 Telemedici ne Visit Beth Pham [facility] 1.114 350.1.13.10 4.2.7.2.686 [id number] 011 [id number] [facility] 2024-04-02 00:00:00 2024-04-03 09:32:23 Refill Marie Garzon [facility] MEDICAL OFFICE BUILDING 1.84.114 350.1.13.10 4.2.7.2.686 [id number] [facility] 2024-03-26 00:00:00 2024-03-27 13:39:41 Patient Secure Azalia Sepulveda [facility]ILD[facility] 1.2840.114 350.1.13.10 4.2.7.2.686 [id number] [facility] 2024-03-25 00:00:00 2024-03-26 08:40:26 Beth Pras[facility] 1.2840.114 350.1.13.10 4.2.7.2.686 [id number] [id number] [facility] 2024-03-25 00:00:00 2024-03-25 22:30:00 Patient Secure Msg Michel Azalia [facility]ILD[facility] 1.20.114 350.1.13.10 4.2.7.2.686 [id number] [facility] 2024-03-24 08:38:00 2024-03-24 13:51:00 Outpatient R MARILU AZALIA MICHEL [facility] [id number] [facility] 2024-03-24 08:38:00 2024-03-24 13:51:00 Hospital Encounter Azalia Michel [facility] 1.2840.114 350.1.13.10 4.2.7.2.686 [id number] [id number] [facility] 2024-03-24 10:34:00 2024-03-24 11:48:00 Surgery Azalia Michel [facility] 1.2840.114 350.1.13.10 4.2.7.2.686 [id number] 020 [id number] [facility] 2024-03-21 00:00:00 2024-03-24 10:25:23 Telephone Marie Garzon [facility] 1.2.114 350.1.13.10 4.2.7.2.686 [id number] [facility] 2024 00:00:00 2024-03-22 18:22:25 Patient Secure Azalia Sepulveda [facility] 1.2840.114 350.1.13.10 4.2.7.2.686 [id number] [facility] 2024-03-21 00:00:00 2024-03-21 13:03:48 Telephone Curtis Morley [facility] MULTISPEC IALTY [facility]ENTER [facility] 1..114 350.1.13.10 4.2.7.2.686 [id number] 011 [id number] [facility] 2024-03-20 12:45:16 2024-03-20 23:59:00 Outpatient R PEYMAN [facility] [id number] [facility] 2024-03-20 12:45:16 2024-03-20 23:59:00 Hospital [facility] 1..114 350.1.13.10 4.2.7.2.686 [id number] [facility] 2024-03-14 00:00:00 2024-03-20 13:52:35 Marie Zabala [facility] 1..114 350.1.13.10 4.2.7.2.686 [id number] 220 [id number] [facility] 2024-03-20 13:00:00 2024-03-20 13:30:00 Office Visit Curtis Morley [facility] MULTISPEC IALTY [facility]ENTER [facility] 1..114 350.1.13.10 4.2.7.2.686 [id number] 011 [id number] [facility] 2024-03-17 00:00:00 2024-03-17 13:56:12 Telephone Curtis Morley [facility] MULTISPEC IALTY [facility]ENTER [facility] 1.2.840.114 350.1.13.10 4.2.7.2.686 [id number] 011 [id number] [facility] 2024-03-14 00:00:00 2024-03-14 15:35:58 Refill Beth Pham [facility] MULTISPEC IALTY [facility]ENTER [facility] 1.2.840.114 350.1.13.10 4.2.7.2.686 [id number] [id number] [facility] 2024-03-14 00:00:00 2024-03-14 14:36:12 Telephone Hortensia Michelela [facility] 1.2.840.114 350.1.13.10 4.2.7.2.686 [id number] [facility] 2024-03-14 00:00:00 2024-03-14 14:28:03 Prep For Surgery Marilu Azalia [facility] 1.2.840.114 350.1.13.10 4.2.7.2.686 [id number] [facility] 2024-03-14 00:00:00 2024-03-14 12:39:52 RefTaylor Thomason [facility] OFF[facility] BUILD[facility] 1.2.840.114 350.1.13.10 4.2.7.2.686 [id number] 044 [id number] [facility] 2024-02-15 00:00:00 2024-03-14 09:43:14 Patient Secure Msg Azalia Michel [facility] 1.2.840.114 350.1.13.10 4.2.7.2.686 [id number] [facility] 2024-03-14 00:00:00 2024-03-14 08:02:59 Refill Vanda Morales [facility] 1.2.840.114 350.1.13.10 4.2.7.2.686 [id number] [id number] [facility] 2024-03-14 00:00:00 2024-03-14 07:32:28 Refill Beth Pham [facility] 1.2.840.114 350.1.13.10 4.2.7.2.686 [id number] 011 [id number] [facility] 2024-03-06 00:00:00 2024-03-13 10:34:36 Refill Marilu Azalia [facility] 1.2.840.114 350.1.13.10 4.2.7.2.686 [id number] [facility] 2024-03-13 00:00:00 2024-03-13 08:10:45 Telephone Azalia Michel [facility] 1.2.840.114 350.1.13.10 4.2.7.2.686 [id number] [facility] 2024-03-06 00:00:00 2024-03-07 12:47:07 Refill Taylor Verdin [facility] MEDICAL [facility] BUILDING 1.2840.114 350.1.13.10 4.2.7.2.686 [id number] 044 [id number] [facility] 2024-03-04 00:00:00 2024-03-04 16:51:56 Telephone Azalia Michel [facility] NAL BUILDING 1.2840.114 350.1.13.10 4.2.7.2.686 [id number] [facility] 2024-02-27 00:00:00 2024-02-28 09:44:29 Refill Taylor Verdin [facility] MEDICAL OFFICE BUILDING 1.2.840.114 350.1.13.10 4.2.7.2.686 [id number] [id number] [facility] 2024-02-27 00:00:00 2024-02-27 17:17:06 Refill Beth Pham [facility] MULTISPEC IALTY CENTER [facility] 1.2.840.114 350.1.13.10 4.2.7.2.686 [id number] 011 [id number] [facility] 2024-02-12 00:00:00 2024-02-13 16:38:47 Patient Secure Msg Marie Garzon [facility] OFF[facility] BU[facility] 1.2.840.114 350.1.13.10 4.2.7.2.686 [id number] [facility] 2024-02-12 00:00:00 2024-02-12 16:57:41 Patient Secure g Marie Garzon [facility] MEDICAL OFFICE BUILDING 1.2.840.114 350.1.13.10 4.2.7.2.686 [id number] 220 [id number] [facility] 2024-02-08 00:00:00 2024-02-12 15:03:08 Taylor Vega [facility] OFF[facility] 1.2.840.114 350.1.13.10 4.2.7.2.686 [id number] 044 [id number] [facility] 2024-02-07 00:00:00 2024-02-08 17:41:01 RefBeth Pepper [facility] MULTISPEC IALTY CENTER [facility] 1.2.840.114 350.1.13.10 4.2.7.2.686 [id number] 011 [id number] [facility] 2024-02-07 00:00:00 2024-02-08 11:00:00 Taylor [facility]ega [facility] 1.2.840.114 350.1.13.10 4.2.7.2.686 [id number] 044 [id number] [facility] 2024-02-07 00:00:00 2024-02-08 08:33:55 Vanda Johnstno [facility] SPECIALTY [facility] 1.2.840.114 350.1.13.10 4.2.7.2.686 [id number] [facility] 2024-02-07 14:45:00 2024-02-07 15:38:04 Outpatient R YAA DRUMMOND WENJIE [facility] [id number] [facility] 2024-02-07 14:45:00 2024-02-07 15:38:04 Office Visit Yaa Drummond [facility] 1..840.114 350.1.13.10 4.2.7.2.686 [id number] [facility] 2024-02-06 13:30:00 2024-02-06 14:14:08 Outpatient R ARGENTINA LOONEY VIVIAN [facility] [id number] [facility] 2024-02-06 13:30:00 2024-02-06 14:14:08 Office Visit Argentina Looney [facility] 1.2840.114 350.1.13.10 4.2.7.2.686 [id number] [facility] 2024-02-05 16:30:46 2024-02-05 16:30:46 Outpatient SFA MARIA M [id number] Chalino Esteban 2024-02-04 14:30:00 2024-02-04 15:19:52 Outpatient R MARIE GARZON [facility] [id number] [facility] 2024-02-04 14:30:00 2024-02-04 15:19:52 Office Visit Marie Garzon [facility] 1.2.840.114 350.1.13.10 4.2.7.2.686 [id number] [facility] 2024-01-31 00:00:00 2024-02-04 10:44:50 Refill Taylor Verdin [facility] MEDICAL OFFICE BUILDING 1.2.840.114 350.1.13.10 4.2.7.2.686 [id number] 044 [id number] [facility] 2024-01-24 00:00:00 2024-01-24 16:31:06 Case Management Taylor Verdin [facility] MEDICAL OFFICE BUILDING 1.2.840.114 350.1.13.10 4.2.7.2.686 [id number] 044 [id number] [facility] 2024-01-24 00:00:00 2024-01-24 16:27:40 Patient Outreach Saumya Priest [facility] MEDICAL OFFICE BUILDING 1.2.840.114 350.1.13.10 4.2.7.2.686 [id number] 044 [id number] [facility] 2024-01-23 15:02:49 2024-01-23 23:59:00 Hospital Encounter Sohan Beth [facility] MEDICAL OFFICE BUILDING 1.2.840.114 350.1.13.10 4.2.7.2.686 [id number] [facility] 2024-01-23 15:02:48 2024-01-23 23:59:00 Hospital Encounter Sohan Beth [facility] BUILD[facility] 1.2.840.114 350.1.13.10 4.2.7.2.686 [id number] [facility] 2024-01-23 14:20:00 2024-01-23 15:40:40 Outpatient R TAYLOR VERDIN [facility] [id number] [facility] 2024-01-23 14:20:00 2024-01-23 15:00:00 Office Visit Taylor Verdin [facility] OFF[facility] BUILDING 1.0.114 350.1.13.10 4.2.7.2.686 [id number] 044 [id number] [facility] 2024-01-15 16:15:00 2024-01-15 17:07:26 Outpatient R AZALIA MICHEL AZALIA [facility] [id number] [facility] 2024-01-15 16:15:00 2024-01-15 17:07:26 Office Visit Azalia Michel [facility] 1..114 350.1.13.10 4.2.7.2.686 [id number] [facility] 2024-01-15 14:30:00 2024-01-15 16:45:29 Office Visit Beth Pham [facility] MULTISPEC IALTY CENTER AND [facility] 1.114 350.1.13.10 4.2.7.2.686 [id number] 011 [id number] [facility] 2024-01-12 00:00:00 2024-01-15 11:47:11 [facility] 1.114 350.1.13.10 4.2.7.2.686 [id number] [id number] [facility] 2024-01-12 00:00:00 2024-01-14 08:11:03 RefCurtsi Barber [facility] MULTISPEC IALTY CENTER AND [facility] 1.114 350.1.13.10 4.2.7.2.686 [id number] [facility] 2024-01-03 00:00:00 2024-01-03 10:30:49 Telephone [facility] 1.2.840.114 350.1.13.10 4.2.7.2.686 [id number] [facility] 2023-12-26 00:00:00 2023-12-26 15:29:45 Refill Taylor Verdin [facility] MEDICAL OFFICE BUILDING 1.2.840.114 350.1.13.10 4.2.7.2.686 [id number] 044 [id number] [facility] 2023-12-25 00:00:00 2023-12-26 08:32:49 Telephone Marie Garzon [facility] MEDICAL OFFICE BUILDING 1.2.840.114 350.1.13.10 4.2.7.2.686 [id number] 220 [id number] [facility] 2023-12-24 00:00:00 2023-12-24 15:37:04 Telephone Marie Garzon [facility] MEDICAL OFFICE BUILDING 1.2.840.114 350.1.13.10 4.2.7.2.686 [id number] [facility] 2023-12-19 13:45:00 2023-12-19 15:23:12 Outpatient R ABIEL ALFARO [facility] [id number] [facility] 2023-12-19 13:45:00 2023-12-19 15:23:12 Office Visit Abiel Alfaro [facility] MECHANICAL APPLICATIONS ENGINEER [facility] 1.2.840.114 350.1.13.10 4.2.7.2.686 [id number] [facility] 2023-12-12 15:40:00 2023-12-12 15:40:00 Outpatient R TAYLOR VERDIN [facility] [id number] [facility] 2023-12-01 00:00:00 2023-12-01 00:00:00 Refill Taylor Verdin Tameka [facility] MEDICAL OFFICE BUILDING 1.2840.114 350.1.13.10 4.2.7.2.686 [id number] [id number] [facility] 2023-11-07 00:00:00 2023-11-07 00:00:00 Telephone Richa Dominguez [facility] MEDICAL OFFICE BUILDING 1.2840.114 350.1.13.10 4.2.7.2.686 [id number] [facility] 2023-11-05 00:00:00 2023-11-05 00:00:00 Refill Taylor Verdin Tameka [facility] MEDICAL OFFICE BUILDING 1.2840.114 350.1.13.10 4.2.7.2.686 [id number] 044 [id number] [facility] 2023-10-19 00:00:00 2023-10-19 00:00:00 Patient Secure [facility] MEDICAL OFFICE BUILDING 1.2840.114 350.1.13.10 4.2.7.2.686 [id number] [facility] 2023-10-16 00:00:00 2023-10-16 00:00:00 Patient Secure Msg Marie Garzon [facility] MEDICAL OFFICE BUILDING 1.2840.114 350.1.13.10 4.2.7.2.686 [id number] 220 [id number] [facility] 2023-10-15 15:30:00 2023-10-15 15:45:00 Service Dispatcher Visit Lab, Raj Saah Marie Minor [facility] MEDICAL OFFICE BUILDING 1.2.840.114 350.1.13.10 4.2.7.2.686 [id number] [facility] 2023-10-15 15:30:00 2023-10-15 15:30:00 Outpatient R MARIE GARZON [facility] [id number] [facility] 2023-10-15 14:30:00 2023-10-15 15:18:52 Office Visit Marie Garzon Yu [facility] MEDICAL OFFICE BUILDING 1..840.114 350.1.13.10 4.2.7.2.686 [id number] [facility] 2023-10-13 00:00:00 2023-10-13 00:00:00 Taylor Vega [facility] MEDICAL OFFICE BUILDING 1..840.114 350.1.13.10 4.2.7.2.686 [id number] [facility] 2023-10-08 13:00:00 2023-10-08 13:00:00 Outpatient R BETH PHAM [facility] [id number] [facility] 2023-09-25 00:00:00 2023-09-25 00:00:00 Telephone KerrPepper porter [facility] BUILDING 1..840.114 350.1.13.10 4.2.7.2.686 [id number] [facility] 2023-09-25 00:00:00 2023-09-25 00:00:00 [facility] 1..840.114 350.1.13.10 4.2.7.2.686 [id number] [facility] 2023-09-20 00:00:00 2023-09-20 00:00:00 Refill Beth Pham [facility] 1.84.114 350.1.13.10 4.2.7.2.686 [id number] [facility] 2023-09-20 00:00:00 2023-09-20 00:00:00 Refill Taylor Verdin [facility] MED[facility] OFF[facility] BUILDING 1.840.114 350.1.13.10 4.2.7.2.686 [id number] [facility] 2023-09-14 00:00:00 2023-09-14 00:00:00 Patient Secure Msg [facility] Unassigned, [facility] 1.84.114 350.1.13.10 4.2.7.2.686 [id number] [facility] 2023-09-13 00:00:00 2023-09-13 00:00:00 Telephone Curtis Morley [facility] 1.84.114 350.1.13.10 4.2.7.2.686 [id number] [facility] 2023-09-12 14:13:36 2023-09-12 23:59:00 Outpatient R CURTIS MORLEY [facility] [id number] [facility] 2023-09-12 14:13:36 2023-09-12 23:59:00 [facility] 1.114 350.1.13.10 4.2.7.2.686 [id number] [facility] 2023-09-12 14:30:00 2023-09-12 15:00:00 [facility] 1.2840.114 350.1.13.10 4.2.7.2.686 [id number] [facility] 2023-09-12 00:00:00 2023-09-12 00:00:00 Orders Only Doctor Unassigned, Apison [facility] 1.2.840.114 350.1.13.10 4.2.7.2.686 [id number] [facility] 2023-09-10 16:15:00 2023-09-10 16:30:00 Service Dispatcher Visit 2, Adc Lab Juan Manuel porter [facility] BUILDING 1.2840.114 350.1.13.10 4.2.7.2.686 [id number] [facility] 2023-09-10 15:30:00 2023-09-10 16:15:28 Outpatient R JUAN MANUEL S, CARMEN CIRILO-HYACINTH S, [facility] [id number] [facility] 2023-09-10 15:30:00 2023-09-10 16:15:28 Office Visit [facility] 1.840.114 350.1.13.10 4.2.7.2.686 [id number] [facility] 2023-09-10 00:00:00 2023-09-10 00:00:00 [facility] 1.2840.114 350.1.13.10 4.2.7.2.686 [id number] 011 [id number] [facility] 2023-09-10 00:00:00 2023-09-10 00:00:00 Orders Only Doctor Unassigned, Apison [facility] 1.2.840.114 350.1.13.10 4.2.7.2.686 [id number] [facility] 2023-08-24 00:00:00 2023-08-24 00:00:00 Refill Beth Pham [facility] ..114 350.1.13.10 4.2.7.2.686 [id number] 011 [id number] [facility] 2023-08-08 00:00:00 2023-08-08 00:00:00 Refill Taylor Verdin [facility] MEDICAL OFFICE BUILDING .84.114 350.1.13.10 4.2.7.2.686 [id number] 044 [id number] [facility] 2023-07-20 14:30:00 2023-07-20 14:30:00 Outpatient R KERR-HYACINTH S, CARMEN KERR-HYACINTH S, CARMEN [facility] [id number] [facility] 2023-07-20 14:30:00 2023-07-20 14:30:00 Outpatient R KERR-HYACINTH S, CARMEN KERR-HYACINTH S, CARMEN [facility] [id number] [facility] 2023-07-20 00:00:00 2023-07-20 00:00:00 Refill Richa Dominguez [facility] MEDICAL OFFICE BUILDING 1.840.114 350.1.13.10 4.2.7.2.686 [id number] [facility] 2023-07-16 13:30:00 2023-07-16 13:30:00 Outpatient R RICHA DOMINGUEZ YU [facility] [id number] [facility] 2023-06-28 00:00:00 2023-06-28 00:00:00 Refill Taylor Verdin [facility] MEDICAL OFFICE BUILDING 1.840.114 350.1.13.10 4.2.7.2.686 [id number] 044 [id number] [facility] 2023-06-25 13:30:00 2023-06-25 15:07:28 Outpatient R BETH PHAM [facility] [id number] [facility] 2023-06-25 13:30:00 2023-06-25 15:07:28 Office Visit Beth Pham [facility] MULTISPEC [facility]TY [facility] AND [facility] 1.840.114 350.1.13.10 4.2.7.2.686 [id number] 011 [id number] [facility] 2023-06-25 00:00:00 2023-06-25 00:00:00 RefTaylor Thomason [facility] MEDICAL OFFICE BUILDING 1.840114 350.1.13.10 4.2.7.2.686 [id number] 044 [id number] [facility] 2023-06-15 00:00:00 2023-06-15 00:00:00 Refill Beth Pham [facility] 1.0.114 350.1.13.10 4.2.7.2.686 [id number] [id number] [facility] 2023-06-14 00:00:00 2023-06-14 00:00:00 Refill Richa Dominguez [facility] MEDICAL OFFICE BUILDING 1.840.114 350.1.13.10 4.2.7.2.686 [id number] [facility] 2023-06-13 00:00:00 2023-06-13 00:00:00 Patient Secure Msg Keyla, [facility] MEDICAL OFFICE BUILDING 1.840.114 350.1.13.10 4.2.7.2.686 [id number] [facility] 2023-06-11 13:30:00 2023-06-11 14:13:46 Outpatient R RICHA DOMINGUEZ [facility] [id number] [facility] 2023-06-11 13:30:00 2023-06-11 14:13:46 Office Visit Richa Dominguez [facility] MEDICAL OFFICE BUILDING 1.114 350.1.13.10 4.2.7.2.686 [id number] [facility] 2023-06-06 14:15:00 2023-06-06 14:30:00 Service Dispatcher Visit Lab, Taylor De Jesus [facility] MEDICAL OFFICE BUILDING 1.114 350.1.13.10 4.2.7.2.686 [id number] [facility] 2023-06-06 13:40:00 2023-06-06 14:09:23 Outpatient R TAYLOR VERDIN [facility] [id number] [facility] 2023-06-06 13:40:00 2023-06-06 14:09:23 Office Visit Taylor Verdin Tameka [facility] KEITH?KENNETH [facility] MED[facility] OFF[facility] BUILDING 1.114 350.1.13.10 4.2.7.2.686 [id number] 044 [id number] [facility] 2023-05-31 00:00:00 2023-05-31 00:00:00 Refill Taylor Verdin [facility] KEITH?[facility] MEDICAL OFFICE BUILDING 1.114 350.1.13.10 4.2.7.2.686 [id number] 044 [id number] [facility] 2023-05-22 00:00:00 2023-05-22 00:00:00 Patient Secure Msg Doctor Unassigned, Apison [facility] 1.2.840.114 350.1.13.10 4.2.7.2.686 [id number] [facility] 2023-05-15 00:00:00 2023-05-15 00:00:00 Telephone Peyman [facility]ISPEC [facility] 1.2.840.114 350.1.13.10 4.2.7.2.686 [id number] 011 [id number] [facility] 2023-05-15 00:00:00 2023-05-15 00:00:00 [facility] 1.840.114 350.1.13.10 4.2.7.2.686 [id number] [id number] [facility] 2023-05-11 13:16:47 2023-05-11 23:59:00 Outpatient R PEYMAN [facility] [id number] [facility] 2023-05-11 13:16:47 2023-05-11 23:59:00 [facility] 1.840.114 350.1.13.10 4.2.7.2.686 [id number] [facility] 2023-05-11 13:30:00 2023-05-11 14:00:00 Office Visit Peyman [facility] M[facility]ISPEC [facility] 1.2840.114 350.1.13.10 4.2.7.2.686 [id number] 011 [id number] [facility] 2023-05-09 00:00:00 2023-05-09 00:00:00 Telephone Peyman [facility] MULTISPEC [facility] 1.2.840.114 350.1.13.10 4.2.7.2.686 [id number] 011 [id number] [facility] 2023-05-09 00:00:00 2023-05-09 00:00:00 Patient Secure Msg Doctor Unassigned, Apison [facility] 1.840.114 350.1.13.10 4.2.7.2.686 [id number] [id number] [facility] 2023-05-08 00:00:00 2023-05-08 00:00:[address] [facility] 1.840.114 350.1.13.10 4.2.7.2.686 [id number] [facility] 2023-05-07 13:30:00 2023-05-07 13:30:00 Outpatient ELDER ORTIZ [facility] [id number] [facility] 2023-05-05 00:00:00 2023-05-05 00:00:00 Taylor Vega [facility] 1.840.114 350.1.13.10 4.2.7.2.686 [id number] 044 [id number] [facility] 2023-05-02 13:00:00 2023-05-02 13:28:05 [facility] [id number] [facility] 2023-05-02 13:00:00 2023-05-02 13:28:05 Office Visit Ez Palacio [facility] 1.2840.114 350.1.13.10 4.2.7.2.686 [id number] [facility] 2023-05-02 00:00:00 2023-05-02 00:00:00 [facility] 1.840.114 350.1.13.10 4.2.7.2.686 [id number] [facility] 2023-05-01 00:00:00 2023-05-01 00:00:00 Refill Richa Dominguez [facility] KEITH?[facility] 1.2840.114 350.1.13.10 4.2.7.2.686 [id number] [facility] 2023-04-09 07:30:00 2023-04-09 10:06:00 Outpatient R NORBERT DIAZ GAB[facility]EL [facility] [id number] [facility] 2023-04-09 07:30:00 2023-04-09 10:06:00 Hospital Encounter Norbert Diaz [facility] 1.0.114 350.1.13.10 4.2.7.2.686 [id number] [facility] 2023-04-09 08:54:00 2023-04-09 09:16:00 Anesthesia Event Yvonne Mehta Carlos [facility] 1.0.114 350.1.13.10 4.2.7.2.686 [id number] 020 [id number] [facility] 2023-04-09 08:00:00 2023-04-09 08:30:00 Surgery Norbert Diaz [facility] 1.840.114 350.1.13.10 4.2.7.2.686 [id number] [id number] [facility] 2023-04-09 00:00:00 2023-04-09 00:00:00 Orders Only Doctor Unassigned, Apison [facility] 1.2840.114 350.1.13.10 4.2.7.2.686 [id number] [facility] 2023-04-07 00:00:00 2023-04-07 00:00:00 Refill Taylor Verdin [facility] MEDICAL OFFICE BUILDING 1.840.114 350.1.13.10 4.2.7.2.686 [id number] 044 [id number] [facility] 2023-04-05 14:00:00 2023-04-05 15:28:11 Outpatient R EAMON CARRASCO RYDEANA [facility] [id number] [facility] 2023-04-05 14:00:00 2023-04-05 15:28:11 Office Visit Eamon Carrasco [facility] MULTISPEC [facility]TY [facility] AND [facility] 1.0.114 350.1.13.10 4.2.7.2.686 [id number] [id number] [facility] 2023-04-05 00:00:00 2023-04-05 00:00:00 Telephone Beth Pham [facility] MULTISPEC [facility] 1.840.114 350.1.13.10 4.2.7.2.686 [id number] [id number] [facility] 2023-04-02 00:00:00 2023-04-02 00:00:00 Taylor Vega Tameka [facility] MEDICAL OFFICE BUILDING 1.840.114 350.1.13.10 4.2.7.2.686 [id number] 044 [id number] [facility] 2023-03-30 00:00:00 2023-03-30 00:00:00 Telephone Naina Segovia [facility] MULTISPEC [facility] 1.0.114 350.1.13.10 4.2.7.2.686 [id number] 085 [id number] [facility] 2023-03-29 14:30:00 2023-03-29 15:00:00 Office Visit Naina Segovia [facility] MULTISPEC [facility] 1.0.114 350.1.13.10 4.2.7.2.686 [id number] [facility] 2023-03-29 14:30:00 2023-03-29 14:30:00 Outpatient NAINA CABALLERO [facility] [id number] [facility] 2023-03-21 12:30:00 2023-03-21 12:30:00 Outpatient HOLLY HERNANDEZ [facility] [id number] [facility] 2023-03-19 00:00:00 2023-03-19 00:00:00 Telephone Beth Pham [facility] MULTISPEC [facility]TY [facility] 1.0.114 350.1.13.10 4.2.7.2.686 [id number] 011 [id number] [facility] 2023-03-19 00:00:00 2023-03-19 00:00:00 Orders Only Doctor Unassigned, Apison [facility] 1.840.114 350.1.13.10 4.2.7.2.686 [id number] [facility] 2023-03-14 00:00:00 2023-03-14 00:00:00 Telephone Beth Pham [facility] 1.0.114 350.1.13.10 4.2.7.2.686 [id number] 011 [id number] [facility] 2023-03-13 14:30:00 2023-03-13 15:27:42 Outpatient BETH CASTRO [facility] [id number] [facility] 2023-03-13 14:30:00 2023-03-13 15:27:42 Office Visit Beth Pham [facility] MULTISPEC [facility]ALTY CENTER [facility] 1..114 350.1.13.10 4.2.7.2.686 [id number] [facility] 2023-03-12 10:00:00 2023-03-12 10:00:00 Outpatient R NAINA SEGOVIA [facility] [id number] [facility] 2023-03-11 00:00:00 2023-03-11 00:00:00 Refill Radha Trinidad [facility] 1.2.840.114 350.1.13.10 4.2.7.2.686 [id number] [facility] 2023-03-06 15:20:00 2023-03-06 16:11:30 Outpatient R TAYLOR VERDIN [facility] [id number] [facility] 2023-03-06 15:20:00 2023-03-06 16:11:30 Office Visit Taylor Verdin [facility]?KENNETH [facility] MEDICAL OFFICE BUILDING 1.2840.114 350.1.13.10 4.2.7.2.686 [id number] [id number] [facility] 2023-03-06 00:00:00 2023-03-06 00:00:00 Refill Raul Wilkinson [facility] MEDICAL OFFICE BUILDING 1.2840.114 350.1.13.10 4.2.7.2.686 [id number] 044 [id number] [facility] 2023-02-25 00:00:00 2023-02-25 00:00:00 Refill Radha Trindiad [facility] 1.2840.114 350.1.13.10 4.2.7.2.686 [id number] [facility] 2023-02-19 14:15:00 2023-02-19 14:26:26 Outpatient R DUNCAN RAMOS [facility] [id number] [facility] 2023-02-19 14:15:00 2023-02-19 14:26:26 Office Visit Duncan Ramos [facility] MEDICAL OFFICE BUILDING 1.284.114 350.1.13.10 4.2.7.2.686 [id number] [facility] 2023-02-18 00:00:00 2023-02-18 00:00:00 Orders Only Doctor Unassigned, Apison [facility] 1.0.114 350.1.13.10 4.2.7.2.686 [id number] [id number] [facility] 2023-02-12 09:30:00 2023-02-12 09:30:00 Outpatient R RICHA DOMINGUEZ YU [facility] [id number] [facility] 2023-02-02 00:00:00 2023-02-02 00:00:00 Radha Stafford [facility] 1..114 350.1.13.10 4.2.7.2.686 [id number] [facility] 2023-01-30 15:00:00 2023-01-30 15:28:38 Outpatient R BIA CHAMORRO [facility] [id number] [facility] 2023-01-30 15:00:00 2023-01-30 15:28:38 Office Visit Bia Chamorro [facility] 1.114 350.1.13.10 4.2.7.2.686 [id number] [facility] 2023-01-30 00:00:00 2023-01-30 00:00:00 Curtis Iniguez [facility] .114 350.1.13.10 4.2.7.2.686 [id number] [id number] [facility] 2023-01-30 00:00:00 2023-01-30 00:00:00 Orders Only Doctor Unassigned, Apison [facility] 1..114 350.1.13.10 4.2.7.2.686 [id number] [id number] [facility] 2023-01-29 00:00:00 2023-01-29 00:00:00 Refjo-ann Trinidad Radha [facility] 1.2.840.114 350.1.13.10 4.2.7.2.686 [id number] [facility] 2023-01-28 00:00:00 2023-01-28 00:00:00 Telephone Keyla [facility] MEDICAL OFFICE BUILDING 1.840.114 350.1.13.10 4.2.7.2.686 [id number] [facility] 2023-01-26 00:00:00 2023-01-26 00:00:00 Telephone Naina Segovia [facility] 1.0.114 350.1.13.10 4.2.7.2.686 [id number] [id number] [facility] 2023-01-25 00:00:00 2023-01-25 00:00:00 Refill Keyla [facility] MEDICAL OFFICE BUILDING 1.840.114 350.1.13.10 4.2.7.2.686 [id number] [facility] 2023-01-25 00:00:00 2023-01-25 00:00:00 Patient Secure Msg Naina Segovia [facility] MULTISPEC [facility]TY CENTER [facility] 1.840.114 350.1.13.10 4.2.7.2.686 [id number] [id number] [facility] 2023-01-24 00:00:00 2023-01-24 00:00:00 Tomyill Radha Trinidad [facility] 1.840.114 350.1.13.10 4.2.7.2.686 [id number] [facility] 2023-01-24 00:00:00 2023-01-24 00:00:00 Telephone Richa Dominguez [facility] MEDICAL OFFICE BUILDING 1.2.114 350.1.13.10 4.2.7.2.686 [id number] [facility] 2023-01-24 00:00:00 2023-01-24 00:00:00 Refill Taylor Verdin [facility] MEDICAL OFFICE BUILDING 1..114 350.1.13.10 4.2.7.2.686 [id number] [id number] [facility] 2023-01-24 00:00:00 2023-01-24 00:00:00 Refill [place] Sabrina [facility] 1..114 350.1.13.10 4.2.7.2.686 [id number] [facility] 2023-01-19 14:40:00 2023-01-19 15:02:51 Outpatient R TAYLOR VERDIN [facility] [id number] [facility] 2023-01-19 14:40:00 2023-01-19 15:02:51 Office Visit Taylor Verdin [facility] MEDICAL OFFICE BUILDING 1.114 350.1.13.10 4.2.7.2.686 [id number] [id number] [facility] 2023-01-16 00:00:00 2023-01-16 00:00:00 Telephone Naina Segovia [facility] 1.114 350.1.13.10 4.2.7.2.686 [id number] [id number] [facility] 2023-01-10 00:00:00 2023-01-10 00:00:00 Telephone Ez Palacio [facility] 1.2.840.114 350.1.13.10 4.2.7.2.686 [id number] [facility] 2023-01-09 10:45:00 2023-01-09 11:00:00 Service Dispatcher Visit V[facility]inder [facility] 1.2.840.114 350.1.13.10 4.2.7.2.686 [id number] [facility] 2023-01-09 09:40:00 2023-01-09 10:34:43 Outpatient R JACOB HARJINDER [facility] [id number] [facility] 2023-01-09 09:40:00 2023-01-09 10:34:43 Office Visit Harjinder James [facility]TY [facility] 1.2.840.114 350.1.13.10 4.2.7.2.686 [id number] [id number] [facility] 2023-01-05 00:00:00 2023-01-05 00:00:00 Telephone Naina Segovia [facility] 1.2.840.114 350.1.13.10 4.2.7.2.686 [id number] [facility] 2023-01-04 00:00:00 2023-01-04 00:00:00 Patient Secure Msg Ez Palacio [facility] 1.2.840.114 350.1.13.10 4.2.7.2.686 [id number] [facility] 2023-01-01 13:30:00 2023-01-01 14:22:24 Outpatient ELDER ORTIZ [facility] [id number] [facility] 2023-01-01 13:30:00 2023-01-01 14:22:24 Office Visit Vanda Morales Joseph Marc [facility] 1.2.840.114 350.1.13.10 4.2.7.2.686 [id number] [id number] [facility] 2023-01-01 10:45:00 2023-01-01 11:46:35 Service Dispatcher Visit Lab, Raj - Ez [facility] 1.2840.114 350.1.13.10 4.2.7.2.686 [id number] [facility] 2023-01-01 10:00:00 2023-01-01 10:26:07 Office Visit Ez Palacio [facility] 1.2.840.114 350.1.13.10 4.2.7.2.686 [id number] [facility] 2023-01-01 00:00:00 2023-01-01 00:00:00 Orders Only Doctor Unassigned, Apison [facility] 1.2.840.114 350.1.13.10 4.2.7.2.686 [id number] [facility] 2022-12-26 11:30:00 2022-12-26 11:30:00 Outpatient EZ JOE CHERYAL [facility] [id number] [facility] 2022-12-26 00:00:00 2022-12-26 00:00:00 Telephone Radha Trinidad [facility] 1.2.840.114 350.1.13.10 4.2.7.2.686 [id number] [facility] 2022-12-11 10:04:30 2022-12-11 23:59:00 Outpatient R CURTIS MORLEY [facility] [id number] [facility] 2022-12-11 10:04:30 2022-12-11 23:59:00 Hospital Encounter Curtis [facility] 1.2.840.114 350.1.13.10 4.2.7.2.686 [id number] [facility] 2022-12-11 10:30:00 2022-12-11 11:45:55 Office Visit Curtis Morley [facility] 1.2840.114 350.1.13.10 4.2.7.2.686 [id number] [facility] 2022-12-11 10:00:00 2022-12-11 10:00:00 Outpatient RICHA BURLESON YU [facility] [id number] [facility] 2022-12-11 00:00:00 2022-12-11 00:00:00 Radha Stafford [facility] 1.840.114 350.1.13.10 4.2.7.2.686 [id number] [facility] 2022-12-07 00:00:00 2022-12-07 00:00:00 [facility] 1.840.114 350.1.13.10 4.2.7.2.686 [id number] [facility] 2022-12-07 00:00:00 2022-12-07 00:00:00 Patient Secure Msg Doctor Unassigned, Apison [facility] 1.2840.114 350.1.13.10 4.2.7.2.686 [id number] [facility] 2022-12-06 00:00:00 2022-12-06 00:00:00 Telephone Skyler Ferrari [facility] 1.840.114 350.1.13.10 4.2.7.2.686 [id number] [facility] 2022-12-06 00:00:00 2022-12-06 00:00:00 Patient Secure MsSkyler Jurado [facility] 1.2840.114 350.1.13.10 4.2.7.2.686 [id number] [facility] 2022-12-05 00:00:00 2022-12-05 00:00:00 Telephone Radha Trinidad [facility] 1.2840.114 350.1.13.10 4.2.7.2.686 [id number] 311 [id number] [facility] 2022-12-05 00:00:00 2022-12-05 00:00:00 RefTaylor Thomason [facility] 1.840.114 350.1.13.10 4.2.7.2.686 [id number] [facility] 2022-12-05 00:00:00 2022-12-05 00:00:00 Telephone Skyler Ferrari [facility] KEITH?[facility] 1.2840.114 350.1.13.10 4.2.7.2.686 [id number] [id number] [facility] 2022-12-05 00:00:00 2022-12-05 00:00:00 Telephone Skyler Ferrari [facility] 1.2840.114 350.1.13.10 4.2.7.2.686 [id number] [facility] 2022-11-30 15:00:00 2022-11-30 15:00:00 Outpatient TAYLOR PARKS [facility] [id number] [facility] 2022-11-29 11:30:00 2022-11-29 12:34:48 Outpatient R TAYLOR VERDIN [facility] [id number] [facility] 2022-11-29 11:30:00 2022-11-29 12:34:48 Office Visit Taylor Vedrin [facility] 1.840.114 350.1.13.10 4.2.7.2.686 [id number] [facility] 2022-11-29 00:00:00 2022-11-29 00:00:00 Telephone [facility] 1..114 350.1.13.10 4.2.7.2.686 [id number] [facility] 2022-11-28 00:00:00 2022-11-28 00:00:00 Case Management [facility] 1..114 350.1.13.10 4.2.7.2.686 [id number] [facility] 2022-11-28 00:00:00 2022-11-28 00:00:00 Patient Secure Msg Gisella [facility] CLINIC 1..114 350.1.13.10 4.2.7.2.686 [id number] [facility] 2022-11-04 00:00:00 2022-11-04 00:00:00 Refill Holly Fregoso [facility] MEDICAL OFFICE BUILDING 1.84.114 350.1.13.10 4.2.7.2.686 [id number] [id number] [facility] 2022-11-02 00:00:00 2022-11-02 00:00:00 Refill Radha Trinidad [facility] 1.2.840.114 350.1.13.10 4.2.7.2.686 [id number] [facility] 2022-10-26 13:25:59 2022-10-26 23:59:00 Outpatient R MEGHAN MARKHAM [facility] [id number] [facility] 2022-10-26 13:25:59 2022-10-26 23:59:00 Hospital Encounter Meghan Markham [facility] MEDICAL OFFICE BUILDING 1.2840.114 350.1.13.10 4.2.7.2.686 [id number] [facility] 2022-10-26 00:00:00 2022-10-26 00:00:00 Refill Holly Fregoso [facility] MEDICAL OFFICE BUILDING 1.2840.114 350.1.13.10 4.2.7.2.686 [id number] 044 [id number] [facility] 2022-10-26 00:00:00 2022-10-26 00:00:00 Refill Radha Trinidad [facility] 1.2840.114 350.1.13.10 4.2.7.2.686 [id number] 044 [id number] [facility] 2022-10-26 00:00:00 2022-10-26 00:00:00 Refill Radha Trinidad [facility] 1.2840.114 350.1.13.10 4.2.7.2.686 [id number] [facility] 2022-10-26 00:00:00 2022-10-26 00:00:00 Refill Richa Dominguez [facility] MEDICAL OFFICE BUILDING 1.2840.114 350.1.13.10 4.2.7.2.686 [id number] [facility] 2022-10-26 00:00:00 2022-10-26 00:00:00 RefRadha Caldwell [facility] 1.114 350.1.13.10 4.2.7.2.686 [id number] [facility] 2022-10-26 00:00:00 2022-10-26 00:00:00 Refill Richa Dominguez [facility] MEDICAL OFFICE BUILDING 1.114 350.1.13.10 4.2.7.2.686 [id number] [facility] 2022-10-26 00:00:00 2022-10-26 00:00:00 Telephone Holly Fregoso [facility] MEDICAL OFFICE BUILDING 1.114 350.1.13.10 4.2.7.2.686 [id number] 044 [id number] [facility] 2022-10-26 00:00:00 2022-10-26 00:00:00 RefCurtis Barber [facility] MULTISPEC [facility]ALTY [facility] 1.114 350.1.13.10 4.2.7.2.686 [id number] 011 [id number] [facility] 2022-10-25 14:00:00 2022-10-25 14:40:59 Outpatient R NAINA SEGOVIA [facility] [id number] [facility] 2022-10-25 14:00:00 2022-10-25 14:40:59 Office Visit Naina Segovia [facility]PEC [facility]TY [facility] 1.114 350.1.13.10 4.2.7.2.686 [id number] 085 [id number] [facility] 2022-10-25 00:00:00 2022-10-25 00:00:00 Telephone Holly Fregoso [facility] MEDICAL OFFICE BUILDING 1.114 350.1.13.10 4.2.7.2.686 [id number] 044 [id number] [facility] 2022-10-24 09:20:00 2022-10-24 10:35:48 Outpatient R SKYLER FERRARI HOWARD [facility] [id number] [facility] 2022-10-24 09:20:00 2022-10-24 10:35:48 Office Visit Skyler Ferrari [facility] MEDICAL OFFICE BUILDING 1.2.840.114 350.1.13.10 4.2.7.2.686 [id number] [facility] 2022-10-24 00:00:00 2022-10-24 00:00:00 Patient Secure Msg Doctor Unassigned, Apison [facility] 1.840.114 350.1.13.10 4.2.7.2.686 [id number] [facility] 2022-10-22 00:00:00 2022-10-22 00:00:00 Telephone Holly Fregoso [facility] MEDICAL OFFICE BUILDING 1.2.840.114 350.1.13.10 4.2.7.2.686 [id number] [id number] [facility] 2022-10-20 00:00:00 2022-10-20 00:00:00 Telephone Holly Fregoso [facility] MEDICAL OFFICE BUILDING 1.2840.114 350.1.13.10 4.2.7.2.686 [id number] 044 [id number] [facility] 2022-10-18 15:00:00 2022-10-18 15:35:29 Outpatient R HOLLY FREGOSO [facility] [id number] [facility] 2022-10-18 15:00:00 2022-10-18 15:35:29 Office Visit Holly Fregoso [facility] 1.0.114 350.1.13.10 4.2.7.2.686 [id number] 044 [id number] [facility] 2022-10-18 00:00:00 2022-10-18 00:00:00 Orders Only Doctor Unassigned, Apison [facility] 1.840.114 350.1.13.10 4.2.7.2.686 [id number] [facility] 2022-10-17 09:00:00 2022-10-17 09:15:00 Service Dispatcher Visit [facility] Kalli Jefferson [facility] 1..114 350.1.13.10 4.2.7.2.686 [id number] [facility] 2022-10-17 09:00:00 2022-10-17 09:00:00 Outpatient R KALLI JEFFERSON STRAHIL [facility] [id number] [facility] 2022-10-03 00:00:00 2022-10-03 00:00:00 Telephone Holly Fregoso [facility] 1.114 350.1.13.10 4.2.7.2.686 [id number] [facility] 2022-10-03 00:00:00 2022-10-03 00:00:00 Telephone Meghan Markham [facility] MEDICAL OFFICE BUILDING 1..114 350.1.13.10 4.2.7.2.686 [id number] [id number] [facility] 2022-10-02 00:00:00 2022-10-02 00:00:00 Refill Holly Fregoso [facility] OFF[facility] BUILD[facility] 1.0.114 350.1.13.10 4.2.7.2.686 [id number] 044 [id number] [facility] 2022-10-01 00:00:00 2022-10-01 00:00:00 Refill Doctor Unassigned, Apison [facility] 1.114 350.1.13.10 4.2.7.2.686 [id number] [id number] [facility] 2022-10-01 00:00:00 2022-10-01 00:00:00 Refill Doctor Unassigned, Apison [facility] 1..114 350.1.13.10 4.2.7.2.686 [id number] [facility] 2022-10-01 00:00:00 2022-10-01 00:00:00 Refill Radha Trinidad [facility] 1..114 350.1.13.10 4.2.7.2.686 [id number] [facility] 2022-09-21 11:00:00 2022-09-21 11:57:44 Outpatient R HOLLY FREGOSO [facility] [id number] [facility] 2022-09-21 11:00:00 2022-09-21 11:57:44 Office Visit [facility] MEDICAL OFFICE BUILDING 1.84.114 350.1.13.10 4.2.7.2.686 [id number] [facility] 2022-09-21 08:00:00 2022-09-21 08:30:00 Office Visit Taylor Verdin [facility] MEDICAL OFFICE BUILDING 1.84.114 350.1.13.10 4.2.7.2.686 [id number] 044 [id number] [facility] 2022-09-21 08:00:00 2022-09-21 08:00:00 Outpatient TAYLOR PARKS [facility] [id number] [facility] 2022-09-19 00:00:00 2022-09-19 00:00:00 Nurse Triage Carolyn Nava, [facility] 1.840.114 350.1.13.10 4.2.7.2.686 [id number] [facility] 2022-09-19 00:00:00 2022-09-19 00:00:00 Telephone Curtis Morley [facility] M[facility]ISPEC [facility]ALTY [facility] 1.0.114 350.1.13.10 4.2.7.2.686 [id number] 011 [id number] [facility] 2022-09-18 10:00:00 2022-09-18 10:30:00 Telemedici ne Visit Beth Pham [facility] 1..114 350.1.13.10 4.2.7.2.686 [id number] 011 [id number] [facility] 2022-09-18 10:00:00 2022-09-18 10:00:00 Outpatient BETH CASTRO [facility] [id number] [facility] 2022-09-18 00:00:00 2022-09-18 00:00:00 [facility] 1..114 350.1.13.10 4.2.7.2.686 [id number] [id number] [facility] 2022-09-15 10:53:55 2022-09-15 23:59:00 Hospital Encounter Curtis Morley [facility] MULTISPEC [facility]ALTY [facility] 1.840.114 350.1.13.10 4.2.7.2.686 [id number] [facility] 2022-09-15 10:53:55 2022-09-15 23:59:00 Outpatient R CURTIS MORLEY [facility] [id number] [facility] 2022-09-15 10:30:00 2022-09-15 11:00:00 Office Visit PeymanCurtis [facility] M[facility]ISPEC [facility]TY [facility] 1.0.114 350.1.13.10 4.2.7.2.686 [id number] [facility] 2022-09-13 09:30:00 2022-09-13 10:35:03 Outpatient R RICHA DOMINGUEZ CHAUDHRY [facility] [id number] [facility] 2022-09-13 09:30:00 2022-09-13 10:35:03 Office [facility] 1.114 350.1.13.10 4.2.7.2.686 [id number] [facility] 2022-09-13 00:00:00 2022-09-13 00:00:[address] [facility] 1..114 350.1.13.10 4.2.7.2.686 [id number] [facility] 2022-09-13 00:00:00 2022-09-13 00:00:00 [facility]phone [facility] 1..114 350.1.13.10 4.2.7.2.686 [id number] [id number] [facility] 2022-09-12 09:30:00 2022-09-12 10:14:05 Office Visit Argentina Looney [facility] 1..114 350.1.13.10 4.2.7.2.686 [id number] [facility] 2022-09-12 09:30:00 2022-09-12 10:14:05 Outpatient R ARGENTINA LOONEY [facility] [id number] [facility] 2022-09-12 00:00:00 2022-09-12 00:00:00 Orders Only Doctor Unassigned, Apison [facility] 1.2.840.114 350.1.13.10 4.2.7.2.686 [id number] [facility] 2022-09-06 00:00:00 2022-09-06 00:00:00 Patient Secure MsEz Sweeney [facility] 1.2840.114 350.1.13.10 4.2.7.2.686 [id number] [facility] 2022-08-29 10:30:00 2022-08-29 10:30:00 Outpatient R CURTIS MORLEY [facility] [id number] [facility] 2022-08-21 10:15:00 2022-08-21 10:15:00 Service Dispatcher Visit [facility], [facility] MEDICAL OFFICE BUILDING 1..840.114 350.1.13.10 4.2.7.2.686 [id number] [facility] 2022-08-21 10:15:00 2022-08-21 10:09:08 Outpatient R PEDRO PABLO [facility] [id number] [facility] 2022-08-21 09:30:00 2022-08-21 09:56:40 Office [facility] MEDICAL OFFICE BUILDING 1..840.114 350.1.13.10 4.2.7.2.686 [id number] [facility] 2022-08-17 13:00:00 2022-08-17 13:00:00 Outpatient R [facility] [id number] [facility] 2022-08-17 00:00:00 2022-08-17 00:00:00 Telephone Radha Trinidad [facility] 1.2.840.114 350.1.13.10 4.2.7.2.686 [id number] [facility] 2022-08-16 12:39:58 2022-08-16 23:59:00 Outpatient SKYLER DUOGHERTY HOWARD [facility] [id number] [facility] 2022-08-16 12:39:58 2022-08-16 23:59:00 Hospital Encounter Skyler Ferrari [facility] 1.2.840.114 350.1.13.10 4.2.7.2.686 [id number] [facility] 2022-08-16 00:00:00 2022-08-16 00:00:00 Refill Radha Trinidad [facility] 1.2.840.114 350.1.13.10 4.2.7.2.686 [id number] [facility] 2022-08-15 11:30:00 2022-08-15 11:42:13 Outpatient R EZ PALACIO CHERYAL [facility] [id number] [facility] 2022-08-15 11:30:00 2022-08-15 11:42:13 [facility] 1.2.840.114 350.1.13.10 4.2.7.2.686 [id number] [facility] 2022-08-15 00:00:00 2022-08-15 00:00:00 Telephone Bruce [facility] 1.2.840.114 350.1.13.10 4.2.7.2.686 [id number] [facility] 2022-08-03 12:45:00 2022-08-03 13:00:00 Service Dispatcher Visit Lab, Raj - Ish [facility]LE[facility] MEDICAL OFFICE BUILDING 1.84.114 350.1.13.10 4.2.7.2.686 [id number] [facility] 2022-08-03 12:45:00 2022-08-03 12:45:00 Outpatient R EZ PALACIO CHERYAL [facility] [id number] [facility] 2022-08-02 13:00:00 2022-08-02 13:55:50 Outpatient R EZ PALACIO CHERYAL [facility] [id number] [facility] 2022-08-02 13:00:00 2022-08-02 13:55:50 Office Visit Ez Palacio [facility] 1.114 350.1.13.10 4.2.7.2.686 [id number] [facility] 2022-07-26 08:50:28 2022-07-26 23:59:00 Outpatient R EZ PALACIO CHERYAL [facility] [id number] [facility] 2022-07-26 08:50:28 2022-07-26 23:59:00 Hospital Encounter Ez Palacio [facility] 1..114 350.1.13.10 4.2.7.2.686 [id number] [facility] 2022-07-26 00:00:00 2022-07-26 00:00:00 Telephone Skyler Ferrari [facility]?KENNETH [facility] MEDICAL OFFICE BUILDING 1.84.114 350.1.13.10 4.2.7.2.686 [id number] [facility] 2022-07-24 09:20:00 2022-07-24 10:09:23 Outpatient SKYLER DOUGHERTY HOWARD [facility] [id number] [facility] 2022-07-24 09:20:00 2022-07-24 10:09:23 Office Visit VegaSkyler Miles [facility] MED[facility] OFF[facility] BUILDING 1..840.114 350.1.13.10 4.2.7.2.686 [id number] [facility] 2022-07-19 00:00:00 2022-07-19 00:00:[address] [facility] 1.840.114 350.1.13.10 4.2.7.2.686 [id number] [facility] 2022-07-18 10:00:00 2022-07-18 11:06:06 Outpatient BETH CASTRO [facility] [id number] [facility] 2022-07-18 10:00:00 2022-07-18 11:06:06 Office Visit Beth Pham [facility] 1..840.114 350.1.13.10 4.2.7.2.686 [id number] [id number] [facility] 2022-07-17 10:45:00 2022-07-17 11:30:28 Outpatient [facility] [id number] [facility] 2022-07-17 10:45:00 2022-07-17 11:30:28 Office Visit Ez Palacio [facility] 1.840.114 350.1.13.10 4.2.7.2.686 [id number] [facility] 2022-07-13 00:00:00 2022-07-13 00:00:00 Telephone Curtis [facility] MULTISPEC IALTY CENTER [facility] 1.2.840.114 350.1.13.10 4.2.7.2.686 [id number] [id number] [facility] 2022-07-11 00:00:00 2022-07-11 00:00:00 Telephone Curtis Morley [facility] MULTISPEC [facility]ALTY CENTER [facility] 1.2.840.114 350.1.13.10 4.2.7.2.686 [id number] [facility] 2022-07-04 00:00:00 2022-07-04 00:00:00 Radha Stafford [facility] 1.2.840.114 350.1.13.10 4.2.7.2.686 [id number] [facility] 2022-07-03 11:18:25 2022-07-03 23:59:00 Outpatient CAMILO ISRAEL [facility] [id number] [facility] 2022-07-03 00:00:00 2022-07-03 00:00:00 Telephone Peyman [facility] MULTISPEC IALTY CENTER [facility] 1.2.840.114 350.1.13.10 4.2.7.2.686 [id number] [facility] 2022-06-30 14:31:25 2022-06-30 23:59:00 Hospital Encounter Curtis [facility]ley [facility] MULTISPEC [facility]ALTY [facility] 1.2.840.114 350.1.13.10 4.2.7.2.686 [id number] [facility] 2022-06-30 14:00:00 2022-06-30 14:30:00 Office Visit Curtis Morley [facility] MULTISPEC [facility]ALTY CENTER [facility] 1.2.840.114 350.1.13.10 4.2.7.2.686 [id number] [id number] [facility] 2022-06-30 14:00:00 2022-06-30 14:00:00 Outpatient R CURTIS MORLEY [facility] [id number] [facility] 2022-06-28 00:00:00 2022-06-28 00:00:00 Telephone Curtis Morley [facility] MULTISPEC IAY CENTER [facility] 1.0.114 350.1.13.10 4.2.7.2.686 [id number] [facility] 2022-06-27 00:00:00 2022-06-27 00:00:00 Radha Stafford [facility] 1..114 350.1.13.10 4.2.7.2.686 [id number] [facility] 2022-06-21 00:00:00 2022-06-21 00:00:00 Patient Secure Msg [facility] 1..114 350.1.13.10 4.2.7.2.686 [id number] [facility] 2022-06-20 11:45:00 2022-06-20 12:00:00 Service Dispatcher Visit Lab, Raj - [facility]na [facility] 1.114 350.1.13.10 4.2.7.2.686 [id number] [facility] 2022-06-20 10:00:00 2022-06-20 10:51:04 Outpatient R AAYUSH ARGENTINA [facility] [id number] [facility] 2022-06-20 10:00:00 2022-06-20 10:51:04 Office Visit Aayush [facility] 1..114 350.1.13.10 4.2.7.2.686 [id number] [facility] 2022-06-16 00:00:00 2022-06-16 00:00:00 Orders Only Doctor Unassigned, Apison [facility] 1.2840.114 350.1.13.10 4.2.7.2.686 [id number] [facility] 2022-06-09 10:15:00 2022-06-09 11:34:49 Outpatient R CAMILO CORLEY [facility] [id number] [facility] 2022-06-09 10:15:00 2022-06-09 11:34:49 Office Visit Camilo Corley [facility] 1..114 350.1.13.10 4.2.7.2.686 [id number] [facility] 2022-05-22 00:00:00 2022-05-22 00:00:00 Refill Doctor Unassigned, Apison [facility] 1.0.114 350.1.13.10 4.2.7.2.686 [id number] [facility] 2022-05-21 00:00:00 2022-05-21 00:00:00 Refill Radha Trinidad [facility] 1.0.114 350.1.13.10 4.2.7.2.686 [id number] [facility] 2022-05-17 00:00:00 2022-05-17 00:00:00 Telephone Curtis Mor[facility] J[facility] 1..114 350.1.13.10 4.2.7.2.686 [id number] [facility] 2022-05-17 00:00:00 2022-05-17 00:00:00 Telephone Curtis Morley [facility] 1.2.840.114 350.1.13.10 4.2.7.2.686 [id number] [facility] 2022-05-17 00:00:00 2022-05-17 00:00:00 Telephone Radha Trinidad [facility] 1.2.840.114 350.1.13.10 4.2.7.2.686 [id number] [facility] 2022-05-16 10:00:00 2022-05-16 11:13:48 Outpatient R CURTIS MORLEY [facility] [id number] [facility] 2022-05-16 10:00:00 2022-05-16 11:13:48 Office Visit Curtis Morley [facility] 1.2.840.114 350.1.13.10 4.2.7.2.686 [id number] [facility] 2022-05-10 00:00:00 2022-05-10 00:00:00 Patient Secure Msg Doctor Unassigned, Apison [facility] 1.2.840.114 350.1.13.10 4.2.7.2.686 [id number] 311 [id number] [facility] 2022-05-08 09:15:00 2022-05-08 09:30:00 Service Dispatcher Visit Lab, [facility] Stew Radha Morales [facility] 1.2.840.114 350.1.13.10 4.2.7.2.686 [id number] 311 [id number] [facility] 2022-05-08 09:15:00 2022-05-08 09:15:00 Outpatient R RADHA TRINIDAD [facility] [id number] [facility] 2022-05-04 00:00:00 2022-05-04 00:00:00 Telephone Radha Trinidad [facility] 1.2.840.114 350.1.13.10 4.2.7.2.686 [id number] 311 [id number] [facility] 2022-05-01 00:00:00 2022-05-01 00:00:00 Refill Curtis Morley [facility] 1.2.840.114 350.1.13.10 4.2.7.2.686 [id number] [facility] 2022-04-28 00:00:00 2022-04-28 00:00:00 Refill Marilu [facility] 1.2.840.114 350.1.13.10 4.2.7.2.686 [id number] [facility] 2022-04-26 00:00:00 2022-04-26 00:00:00 Telephone Radha Trinidad [facility] 1.2.840.114 350.1.13.10 4.2.7.2.686 [id number] 311 [id number] [facility] 2022-04-21 00:00:00 2022-04-21 00:00:00 Patient Secure Msg Radha Trinidad [facility] 1.2.840.114 350.1.13.10 4.2.7.2.686 [id number] 311 [id number] [facility] 2022-04-21 00:00:00 2022-04-21 00:00:00 Refill Marilu [facility] 1.2.840.114 350.1.13.10 4.2.7.2.686 [id number] [facility] 2022-04-21 00:00:00 2022-04-21 00:00:00 Refill Doctor Unassigned, Apison [facility] 1.2.840.114 350.1.13.10 4.2.7.2.686 [id number] 311 [id number] [facility] 2022-04-21 00:00:00 2022-04-21 00:00:00 Refill Olu Ashley IRA [facility] 1.2.840.114 350.1.13.10 4.2.7.2.686 [id number] [facility] 2022-04-18 14:00:00 2022-04-18 14:30:00 Telemedici ne Visit BirdRadha [facility] 1.2.840.114 350.1.13.10 4.2.7.2.686 [id number] 311 [id number] [facility] 2022-04-18 14:00:00 2022-04-18 14:00:00 Outpatient RADHA GUPTA [facility] [id number] [facility] 2022-04-18 14:00:00 2022-04-18 14:00:00 Outpatient RADHA GUPTA [facility] [id number] [facility] 2022-04-18 10:00:00 2022-04-18 10:00:00 Outpatient RADHA GUPTA [facility] [id number] [facility] 2022-04-17 00:00:00 2022-04-17 00:00:00 Telephone Radha Trinidad [facility] 1.2.840.114 350.1.13.10 4.2.7.2.686 [id number] 311 [id number] [facility] 2022-04-13 00:00:00 2022-04-13 00:00:00 Refill BirdRadha [facility] 1.2.840.114 350.1.13.10 4.2.7.2.686 [id number] 311 [id number] [facility] 2022-04-05 00:00:00 2022-04-05 00:00:00 Orders Only Doctor Unassigned, Apison [facility] 1.2.840.114 350.1.13.10 4.2.7.2.686 [id number] [facility] 2022-03-26 00:00:00 2022-03-26 00:00:00 Refill Radha [place] [facility] 1.2.840.114 350.1.13.10 4.2.7.2.686 [id number] 311 [id number] [facility] 2022-03-26 00:00:00 2022-03-26 00:00:00 Refill Marilu [facility] 1.2.840.114 350.1.13.10 4.2.7.2.686 [id number] [facility] 2022-03-13 00:00:00 2022-03-13 00:00:00 Orders Only Doctor Unassigned, Apison [facility] 1.2.840.114 350.1.13.10 4.2.7.2.686 [id number] [facility] 2022-03-10 00:00:00 2022-03-10 00:00:00 Telephone Radha Trinidad [facility] 1.2.840.114 350.1.13.10 4.2.7.2.686 [id number] [facility] 2022-03-08 00:00:00 2022-03-08 00:00:00 Telephone Marilu [facility] 1.2.840.114 350.1.13.10 4.2.7.2.686 [id number] [facility] 2022-03-08 00:00:00 2022-03-08 00:00:00 Telephone Radha Trinidad [facility] 1.2.840.114 350.1.13.10 4.2.7.2.686 [id number] [facility] 2022-03-07 14:00:00 2022-03-07 14:00:00 Outpatient AZALIA ORELLANA [facility] [id number] [facility] 2022-03-07 00:00:00 2022-03-07 00:00:00 Telephone TrinidadRadha [facility] 1.2.840.114 350.1.13.10 4.2.7.2.686 [id number] 311 [id number] [facility] 2022-03-05 00:00:00 2022-03-05 00:00:00 Refill BirdRadha [facility] 1.2.840.114 350.1.13.10 4.2.7.2.686 [id number] 311 [id number] [facility] 2022-02-28 00:00:00 2022-02-28 00:00:00 Patient Secure Msg Doctor Unassigned, Apison [facility] 1.2.840.114 350.1.13.10 4.2.7.2.686 [id number] 311 [id number] [facility] 2022-02-13 00:00:00 2022-02-13 00:00:00 Refill BirdRadha [facility] 1.2.840.114 350.1.13.10 4.2.7.2.686 [id number] 311 [id number] [facility] 2022-02-10 00:00:00 2022-02-10 00:00:00 Telephone Radha Trinidad [facility] 1.2.840.114 350.1.13.10 4.2.7.2.686 [id number] 311 [id number] [facility] 2022-02-10 00:00:00 2022-02-10 00:00:00 Refill Radha Trinidad [facility] 1.2.840.114 350.1.13.10 4.2.7.2.686 [id number] 311 [id number] [facility] 2022-02-09 00:00:00 2022-02-09 00:00:00 Solis FlahertyRadha luciano [facility] 1.2.840.114 350.1.13.10 4.2.7.2.686 [id number] 311 [id number] [facility] 2022-02-09 00:00:00 2022-02-09 00:00:00 Refill Marilu [facility] 1.2840.114 350.1.13.10 4.2.7.2.686 [id number] [facility] 2022-01-24 14:00:00 2022-01-24 14:15:00 Office Visit Marilu [facility] 1.2.840.114 350.1.13.10 4.2.7.2.686 [id number] [facility] 2022-01-24 14:00:00 2022-01-24 14:00:00 Outpatient Annalee MICHEL AZALIA [facility] [id number] [facility] 2022-01-24 14:00:00 2022-01-24 14:00:00 Outpatient AZALIA ORELLANA [facility] [id number] [facility] 2022-01-24 14:00:00 2022-01-24 14:00:00 Outpatient Annalee MICHEL AZALIA [facility] [id number] [facility] 2022-01-24 14:00:00 2022-01-24 14:00:00 Outpatient Annalee MICHEL AZALIA [facility] [id number] [facility] 2022-01-24 00:00:00 2022-01-24 00:00:00 Patient Secure Msg Doctor Unassigned, Apison [facility] 1.2.840.114 350.1.13.10 4.2.7.2.686 [id number] [facility] 2022-01-24 00:00:00 2022-01-24 00:00:00 Patient Secure Msg Radha Trinidad [facility] 1.2.840.114 350.1.13.10 4.2.7.2.686 [id number] 311 [id number] [facility] 2022-01-21 00:00:00 2022-01-21 00:00:00 Patient Secure Msg Doctor Unassigned, Apison [facility] 1.2.840.114 350.1.13.10 4.2.7.2.686 [id number] [facility] 2022-01-20 00:00:00 2022-01-20 00:00:00 Telephone Radha Trinidad [facility] 1.2.840.114 350.1.13.10 4.2.7.2.686 [id number] 311 [id number] [facility] 2022-01-20 00:00:00 2022-01-20 00:00:00 Telephone Radha Trinidad [facility] 1.2.840.114 350.1.13.10 4.2.7.2.686 [id number] 311 [id number] [facility] 2022-01-16 15:00:00 2022-01-16 15:30:00 Office Visit Radha Trinidad [facility] 1.2.840.114 350.1.13.10 4.2.7.2.686 [id number] 311 [id number] [facility] 2022-01-16 15:00:00 2022-01-16 15:00:00 Outpatient R RADHA TRINIDAD [facility] [id number] [facility] 2022-01-16 00:00:00 2022-01-16 00:00:00 Catalina Alvarez [facility] 1.2.840.114 350.1.13.10 4.2.7.2.686 [id number] 311 [id number] [facility] 2022-01-04 00:00:00 2022-01-04 00:00:00 Patient Secure Msg Doctor Unassigned, Apison [facility] 1.2.840.114 350.1.13.10 4.2.7.2.686 [id number] [id number] [facility] 2022-01-04 00:00:00 2022-01-04 00:00:00 Refill Curtis Morley [facility] 1.2.840.114 350.1.13.10 4.2.7.2.686 [id number] [id number] [facility] 2022-01-04 00:00:00 2022-01-04 00:00:00 RefRadha Caldwell [facility] 1.2.840.114 350.1.13.10 4.2.7.2.686 [id number] 311 [id number] [facility] 2021-12-21 00:00:00 2021-12-21 00:00:00 Azalia Arroyo [facility] 1.2.840.114 350.1.13.10 4.2.7.2.686 [id number] [facility] 2021-12-20 14:30:00 2021-12-20 14:30:00 Outpatient R AZALIA MICHEL [facility] [id number] [facility] 2021-12-07 00:00:00 2021-12-07 00:00:00 Radha Stafford [facility] 1.2.840.114 350.1.13.10 4.2.7.2.686 [id number] 311 [id number] [facility] 2021-11-29 00:00:00 2021-11-29 00:00:00 Patient Secure Radha Granados [facility] 1.2.840.114 350.1.13.10 4.2.7.2.686 [id number] 311 [id number] [facility] 2021-11-22 16:00:00 2021-11-22 16:15:00 Telemedici ne Visit Mrailu [facility] 1.2.840.114 350.1.13.10 4.2.7.2.686 [id number] [facility] 2021-11-22 16:00:00 2021-11-22 16:00:00 Outpatient Annalee MICHEL AZALIA [facility] [id number] [facility] 2021-11-22 16:00:00 2021-11-22 16:00:00 Outpatient Annalee MICHEL [facility] [id number] [facility] 2021-11-22 00:00:00 2021-11-22 00:00:00 Telephone Radha Trinidad [facility] 1.2.840.114 350.1.13.10 4.2.7.2.686 [id number] 311 [id number] [facility] 2021-11-22 00:00:00 2021-11-22 00:00:00 Telephone Marilu [facility] 1.2.840.114 350.1.13.10 4.2.7.2.686 [id number] [facility] 2021-11-20 00:00:00 2021-11-20 00:00:00 Telephone Marilu [facility] 1.2.840.114 350.1.13.10 4.2.7.2.686 [id number] [facility] 2021-11-20 00:00:00 2021-11-20 00:00:00 Telephone Azalia Michel [facility] 1.2.840.114 350.1.13.10 4.2.7.2.686 [id number] 408 [id number] [facility] 2021-11-20 00:00:00 2021-11-20 00:00:00 Telephone Byron Berry [facility] 1.2.840.114 350.1.13.10 4.2.7.2.686 [id number] [facility] 2021-11-15 08:45:00 2021-11-15 08:45:00 Outpatient CAMILO ISRAEL [facility] [id number] [facility] 2021-11-15 08:45:00 2021-11-15 08:45:00 Outpatient CAMILO ISRAEL [facility] [id number] [facility] 2021-11-14 10:46:00 2021-11-14 15:24:00 Outpatient R MARILU [facility] [id number] [facility] 2021-11-14 10:46:00 2021-11-14 15:24:00 Hospital Encounter Marilu [facility] 1.2.840.114 350.1.13.10 4.2.7.2.686 [id number] [facility] 2021-11-14 11:43:00 2021-11-14 13:33:00 Surgery Marilu [facility] 1.2.840.114 350.1.13.10 4.2.7.2.686 [id number] [facility] 2021-11-11 14:00:00 2021-11-11 14:15:00 Laboratory Only Only, Adc Test Marilu [facility] 1.2.840.114 350.1.13.10 4.2.7.2.686 [id number] [facility] 2021-11-11 14:00:00 2021-11-11 14:00:00 Outpatient Annalee POTTSMARILUHORTENSIA HESTERELA [facility] [id number] [facility] 2021-11-08 14:15:00 2021-11-08 14:30:00 Office Visit Azalia Michel [facility] 1.840.114 350.1.13.10 4.2.7.2.686 [id number] [facility] 2021-11-08 14:15:00 2021-11-08 14:15:00 Outpatient Annalee MICHELAZALIA [facility] [id number] [facility] 2021-11-08 00:00:00 2021-11-08 00:00:00 Radha Stafford [facility] 1.840.114 350.1.13.10 4.2.7.2.686 [id number] [facility] 2021-11-04 11:00:00 2021-11-04 11:00:00 Outpatient Annalee MICHELHORTENSIAAZALIA [facility] [id number] [facility] 2021-10-26 00:00:00 2021-10-26 00:00:00 Patient Secure Curtis Figueroa [facility] 1.840.114 350.1.13.10 4.2.7.2.686 [id number] [facility] 2021-10-22 00:00:00 2021-10-22 00:00:00 Radha Stafford [facility] 1.840.114 350.1.13.10 4.2.7.2.686 [id number] [facility] 2021-10-17 09:30:00 2021-10-17 09:30:00 Outpatient CURTIS HARRISON [facility] [id number] [facility] 2021-10-05 11:30:00 2021-10-05 11:30:00 Outpatient SKYLER DOUGHERTY HOWARD [facility] [id number] [facility] 2021-10-05 00:00:00 2021-10-05 00:00:00 Radha Stafford [facility] 1.840.114 350.1.13.10 4.2.7.2.686 [id number] [facility] 2021-09-29 08:30:00 2021-09-29 08:30:00 Outpatient CURTIS HARRISON [facility] [id number] [facility] 2021-09-29 08:30:00 2021-09-29 08:30:00 Outpatient CURTIS HARRISON [facility] [id number] [facility] 2021-09-29 08:30:00 2021-09-29 08:30:00 Outpatient CURTIS HARRISON [facility] [id number] [facility] 2021-09-16 14:30:00 2021-09-16 14:30:00 Outpatient RAHDA GUPTA [facility] [id number] [facility] 2021-09-16 14:30:00 2021-09-16 14:30:00 Outpatient RADHA GUPTA [facility] [id number] [facility] 2021-09-15 00:00:00 2021-09-15 00:00:00 Curtis Iniguez Scooter [facility] 1..114 350.1.13.10 4.2.7.2.686 [id number] [facility] 2021-09-06 09:00:00 2021-09-06 09:30:00 Office Visit Radha Trinidad [facility] 1.840.114 350.1.13.10 4.2.7.2.686 [id number] 311 [id number] [facility] 2021-09-06 09:00:00 2021-09-06 09:00:00 Outpatient RADHA GUPTA [facility] [id number] [facility] 2021-09-06 09:00:00 2021-09-06 09:00:00 Outpatient Annalee TRINIDAD, RADHA [facility] [id number] [facility] 2021-09-06 00:00:00 2021-09-06 00:00:00 Orders Only Doctor Unassigned, Apison [facility] 1.2.840.114 350.1.13.10 4.2.7.2.686 [id number] [facility] 2021-09-06 00:00:00 2021-09-06 00:00:00 Telephone Curtis Morley [facility] 1.840.114 350.1.13.10 4.2.7.2.686 [id number] [facility] 2021-09-01 00:00:00 2021-09-01 00:00:00 RefRadha Caldwell [facility] 1.2.840.114 350.1.13.10 4.2.7.2.686 [id number] 311 [id number] [facility] 2021-08-10 00:00:00 2021-08-10 00:00:00 Ashley Ruvalcaba [facility] 1.2.840.114 350.1.13.10 4.2.7.2.686 [id number] 370 [id number] [facility] 2021-08-03 00:00:00 2021-08-03 00:00:00 Radha Stafford [facility] 1.2.840.114 350.1.13.10 4.2.7.2.686 [id number] 311 [id number] [facility] 2021-08-03 00:00:00 2021-08-03 00:00:00 Solis TrinidadRadha vidal [facility] 1.2.840.114 350.1.13.10 4.2.7.2.686 [id number] 311 [id number] [facility] 2021-08-02 00:00:00 2021-08-02 00:00:00 Refjo-ann Radha Trinidad [facility] 1.2.840.114 350.1.13.10 4.2.7.2.686 [id number] 311 [id number] [facility] 2021-08-02 00:00:00 2021-08-02 00:00:00 RefAshley Schultz [facility] 1.2.840.114 350.1.13.10 4.2.7.2.686 [id number] 370 [id number] [facility] 2021-08-02 00:00:00 2021-08-02 00:00:00 RefNew Madsen [facility] 1.840.114 350.1.13.10 4.2.7.2.686 [id number] [facility] 2021-08-02 00:00:00 2021-08-02 00:00:00 Catalina Alvarez [facility] 1.2840.114 350.1.13.10 4.2.7.2.686 [id number] 311 [id number] [facility] 2021-08-01 00:00:00 2021-08-01 00:00:00 Telephone Rene Olvera [facility] 1.840.114 350.1.13.10 4.2.7.2.686 [id number] [facility] 2021-07-29 12:53:28 2021-07-29 23:59:00 Hospital Curtis Gonzalez [facility] 1.0.114 350.1.13.10 4.2.7.2.686 [id number] [facility] 2021-07-29 12:53:28 2021-07-29 23:59:00 Outpatient R CURTIS MORLEY [facility] [id number] [facility] 2021-07-29 13:30:00 2021-07-29 14:00:00 Office Visit Curtis Morley [facility] AND [facility] 1.0.114 350.1.13.10 4.2.7.2.686 [id number] [facility] 2021-07-29 13:30:00 2021-07-29 13:30:00 Outpatient R [facility] [id number] [facility] 2021-07-28 00:00:00 2021-07-28 00:00:00 [facility]phone [facility] 1..114 350.1.13.10 4.2.7.2.686 [id number] [id number] [facility] 2021-07-27 00:00:00 2021-07-27 00:00:00 Telephone [facility] 1.0.114 350.1.13.10 4.2.7.2.686 [id number] [id number] [facility] 2021-07-20 16:45:00 2021-07-20 17:37:40 Outpatient SAMINA BLACK [facility] [id number] [facility] 2021-07-20 16:19:24 2021-07-20 17:37:40 Urgent Care Samina Booker A Unknown, Attending [facility] 1.840.114 350.1.13.10 4.2.7.2.686 [id number] 370 [id number] [facility] 2021-07-05 10:00:00 2021-07-05 10:00:00 Outpatient R CURTIS MORLEY [facility] [id number] [facility] 2021-07-01 16:00:00 2021-07-01 14:32:17 Outpatient SAMINA BLACK [facility] [id number] [facility] 2021-07-01 11:41:16 2021-07-01 11:56:16 Nurse Visit Nurse, Anthony Adult Urgent Unknown, Attending [facility] 1.840.114 350.1.13.10 4.2.7.2.686 [id number] 370 [id number] [facility] 2021-06-30 00:00:00 2021-06-30 00:00:00 Telephone Curtis Morley [facility] C[facility] AND [facility] 1.84.114 350.1.13.10 4.2.7.2.686 [id number] [facility] 2021-06-28 10:23:31 2021-06-28 11:23:31 Nurse Visit Therapy, Clc Covid Infusion Tejinder Valles [facility] 1.84.114 350.1.13.10 4.2.7.2.686 [id number] [facility] 2021-06-28 10:30:00 2021-06-28 10:30:00 Outpatient TEJINDER DUARTE [facility] [id number] [facility] 2021-06-27 09:00:00 2021-06-27 09:00:00 Outpatient RADHA GUPTA [facility] [id number] [facility] 2021-06-27 08:22:01 2021-06-27 08:52:01 Telemedici ne Visit Radha Trinidad [facility] 1.84.114 350.1.13.10 4.2.7.2.686 [id number] 311 [id number] [facility] 2021-06-25 09:06:44 2021-06-25 09:55:18 Urgent Care OluAshley Unknown, Attending [facility] 1.0.114 350.1.13.10 4.2.7.2.686 [id number] 370 [id number] [facility] 2021-06-25 09:00:00 2021-06-25 09:55:18 Outpatient R ASHLEY RAINES [facility] [id number] [facility] 2021-06-06 17:12:40 2021-06-06 17:50:36 Urgent Care Ever Fierro Unknown, Attending [facility] [place] 1..114 350.1.13.10 4.2.7.2.686 [id number] 370 [id number] [facility] 2021-06-06 17:15:00 2021-06-06 17:15:00 Outpatient R UNKNOWN, ATTENDING [facility] [id number] [facility] 2021-06-06 00:00:00 2021-06-06 00:00:00 Telephone Curtis Morley [facility] 1.114 350.1.13.10 4.2.7.2.686 [id number] [facility] 2021-06-04 00:00:00 2021-06-04 00:00:00 Radha Stafford [facility] 1.0.114 350.1.13.10 4.2.7.2.686 [id number] [facility] 2021-05-31 00:00:00 2021-05-31 00:00:00 Radha Stafford [facility] 1.840.114 350.1.13.10 4.2.7.2.686 [id number] 311 [id number] [facility] 2021-05-20 00:00:00 2021-05-20 00:00:00 [facility] 1.2.840.114 350.1.13.10 4.2.7.2.686 [id number] [facility] 2021-05-03 09:27:09 2021-05-03 09:42:09 Service Dispatcher Visit Lab, [facility] Stew Barrington Peck [facility] 1.2.840.114 350.1.13.10 4.2.7.2.686 [id number] 311 [id number] [facility] 2021-05-03 09:27:09 2021-05-03 09:42:09 Service Dispatcher Visit Lab, [facility] [address] Venegas Barrington Charlotte [facility] 1.2840.114 350.1.13.10 4.2.7.2.686 [id number] [facility] 2021-05-03 08:00:00 2021-05-03 08:00:00 Outpatient CATALINA BARNHART [facility] [id number] [facility] 2021-04-28 14:00:00 2021-04-28 14:00:00 Outpatient R CURTIS MORLEY [facility] [id number] [facility] 2021-04-28 00:00:00 2021-04-28 00:00:00 Telephone [facility] 1.2840.114 350.1.13.10 4.2.7.2.686 [id number] [facility] 2021-04-25 15:41:06 2021-04-25 16:11:06 Office Visit Catalina Mendez [facility] 1.2.840.114 350.1.13.10 4.2.7.2.686 [id number] [facility] 2021-04-25 13:30:00 2021-04-25 13:30:00 Outpatient R CATALINA MENDEZ [facility] [id number] [facility] 2021-04-19 11:30:00 2021-04-19 11:30:00 Outpatient Annalee CHELSEA JOHNSONL [facility] [id number] [facility] 2021-04-16 00:00:00 2021-04-16 00:00:00 Radha Stafford [facility] 1.2.840.114 350.1.13.10 4.2.7.2.686 [id number] [facility] 2021-04-16 00:00:00 2021-04-16 00:00:00 Radha Stafford [facility] 1.2.840.114 350.1.13.10 4.2.7.2.686 [id number] [facility] 2021-03-29 16:04:00 2021-03-29 23:55:00 Emergency Brady Ivy Pedram [facility] 1.2840.114 350.1.13.10 4.2.7.2.686 [id number] [facility] 2021-03-28 00:00:00 2021-03-28 00:00:00 Patient Secure Msg Doctor Unassigned, [place] [facility] 1.2840.114 350.1.13.10 4.2.7.2.686 [id number] [facility] 2021-03-28 00:00:00 2021-03-28 00:00:00 Letter (Out) Norma Parker [facility] 1.2840.114 350.1.13.10 4.2.7.2.686 [id number] [facility] 2021-03-27 00:00:00 2021-03-27 00:00:00 [facility] 1.2.840.114 350.1.13.10 4.2.7.2.686 [id number] [facility] 2021-03-26 16:32:41 2021-03-26 18:13:07 [facility] 1.2.840.114 350.1.13.10 4.2.7.2.686 [id number] [facility] 2021-03-26 16:30:00 2021-03-26 16:30:00 Outpatient SAMINA BLACK [facility] [id number] [facility] 2021-03-25 08:00:00 2021-03-25 08:00:00 Outpatient CURTIS HARRISON [facility] [id number] [facility] 2021-03-24 15:42:41 2021-03-24 16:12:41 Telemedici ne Visit [place] [facility] 1..114 350.1.13.10 4.2.7.2.686 [id number] [facility] 2021-03-24 16:00:00 2021-03-24 16:00:00 Outpatient NEW BLACK [facility] [id number] [facility] 2021-03-24 09:30:00 2021-03-24 09:30:00 Outpatient CURTIS HARRISON [facility] [id number] [facility] 2021-03-24 00:00:00 2021-03-24 00:00:00 Telephone Curtis Morley [facility] 1.84.114 350.1.13.10 4.2.7.2.686 [id number] [facility] 2021-03-21 14:56:09 2021-03-21 15:11:09 Service Dispatcher Visit [facility] [place] 1.2840.114 350.1.13.10 4.2.7.2.686 [id number] [facility] 2021-03-21 14:45:00 2021-03-21 14:45:00 Outpatient NEW BLACK [facility] [id number] [facility] 2021-03-21 00:00:00 2021-03-21 00:00:00 Telephone Curtis Mor[facility] 1.20.114 350.1.13.10 4.2.7.2.686 [id number] [facility] 2021-03-04 00:00:00 2021-03-04 00:00:00 Patient Secure Msg [place] 1.2840.114 350.1.13.10 4.2.7.2.686 [id number] [facility] 2021-03-02 00:00:00 2021-03-02 00:00:00 Radha Stafford [facility] 1.2840.114 350.1.13.10 4.2.7.2.686 [id number] [facility] 2021-02-22 13:46:43 2021-02-22 14:41:46 Office [facility] 1.20.114 350.1.13.10 4.2.7.2.686 [id number] [facility] 2021-02-22 14:00:00 2021-02-22 14:00:00 Outpatient NEW BLACK [facility] [id number] [facility] 2021-02-16 00:00:00 2021-02-16 00:00:00 Telephone Trinidad, Radha [facility] 1.2.840.114 350.1.13.10 4.2.7.2.686 [id number] [facility] 2021-02-12 13:51:08 2021-02-12 15:01:56 Urgent Care Care, Gal Adult Urgent Unknown, Attending Ashley Raines [facility] [place] 1.840.114 350.1.13.10 4.2.7.2.686 [id number] [facility] 2021-02-12 13:45:00 2021-02-12 13:45:00 Outpatient R UNKNOWN, ATTENDING [facility] [id number] [facility] 2021-02-12 00:00:00 2021-02-12 00:00:00 Telephone Curtis Morley [facility] 1.840.114 350.1.13.10 4.2.7.2.686 [id number] [facility] 2021-02-11 00:00:00 2021-02-11 00:00:00 Telephone TrinidadRadha vidal [facility] 1.2.840.114 350.1.13.10 4.2.7.2.686 [id number] [facility] 2021-02-08 09:00:00 2021-02-08 09:00:00 Outpatient R CURTIS MORLEY [facility] [id number] [facility] 2021-02-08 00:00:00 2021-02-08 00:00:00 Telephone Radha Trinidad [facility] 1..840.114 350.1.13.10 4.2.7.2.686 [id number] [facility] 2021-02-01 00:00:2021-02-01 00:00:00 Telephone Curtis Morley [facility] 1.2840.114 350.1.13.10 4.2.7.2.686 [id number] [id number] [facility] 2021-01-31 00:00:00 2021-01-31 00:00:00 Orders Only Doctor Unassigned, Apison [facility] 1.2.840.114 350.1.13.10 4.2.7.2.686 [id number] [facility] 2021-01-30 00:00:00 2021-01-30 00:00:00 Refill Chan Souza [facility] 1.840.114 350.1.13.10 4.2.7.2.686 [id number] [id number] [facility] 2021-01-30 00:00:00 2021-01-30 00:00:00 RefRadha Caldwell [facility] 1.840.114 350.1.13.10 4.2.7.2.686 [id number] [facility] 2021-01-25 13:30:00 2021-01-25 13:30:00 Outpatient RADHA GUPTA [facility] [id number] [facility] 2021-01-24 15:50:41 2021-01-24 16:59:23 Office Visit Radha Trinidad [facility] 1.2840.114 350.1.13.10 4.2.7.2.686 [id number] [facility] 2021-01-24 16:00:00 2021-01-24 16:00:00 Outpatient RADHA GUPTA [facility] [id number] [facility] 2021-01-20 09:00:00 2021-01-20 09:00:00 Outpatient RADHA GUPTA [facility] [id number] [facility] 2021-01-11 09:30:00 2021-01-11 09:30:00 Outpatient CURTIS HARRISON [facility] [id number] [facility] 2021-01-07 11:30:00 2021-01-07 11:30:00 Outpatient AZALIA ORELLANA [facility] [id number] [facility] 2021-01-05 00:00:00 2021-01-05 00:00:00 Telephone Trinidad, Radha [facility] 1.840.114 350.1.13.10 4.2.7.2.686 [id number] [facility] 2021-01-03 00:00:00 2021-01-03 00:00:00 Patient Secure Msg Azalia Michel [facility] 1.840.114 350.1.13.10 4.2.7.2.686 [id number] [facility] 2020-12-31 00:00:00 2020-12-31 00:00:00 Patient Secure Msg Doctor Unassigned, Apison [facility] 1.2840.114 350.1.13.10 4.2.7.2.686 [id number] [facility] 2020-12-31 00:00:00 2020-12-31 00:00:00 Refill Doctor Unassigned, Apison [facility] 1.840.114 350.1.13.10 4.2.7.2.686 [id number] [id number] [facility] 2020-12-31 00:00:00 2020-12-31 00:00:00 Refill Cait Sainz [facility] 1.2840.114 350.1.13.10 4.2.7.2.686 [id number] [facility] 2020-12-31 00:00:00 2020-12-31 00:00:00 Refill Doctor Unassigned, Apison [facility] 1.2.114 350.1.13.10 4.2.7.2.686 [id number] [facility] 2020-12-30 17:19:08 2020-12-30 17:34:08 Urgent Care Monika Summers Unknown, Attending [facility] 1.84.114 350.1.13.10 4.2.7.2.686 [id number] [facility] 2020-12-30 17:15:00 2020-12-30 17:15:00 Outpatient R UNKNOWN, ATTENDING [facility] [id number] [facility] 2020-12-24 10:30:00 2020-12-24 10:30:00 Outpatient R AZALIA MICHEL [facility] [id number] [facility] 2020-12-24 00:00:00 2020-12-24 00:00:00 Orders Only Doctor Unassigned, Apison [facility] 1..114 350.1.13.10 4.2.7.2.686 [id number] [facility] 2020-12-21 09:12:04 2020-12-21 10:15:32 [facility] 1..114 350.1.13.10 4.2.7.2.686 [id number] [facility] 2020-12-21 09:30:00 2020-12-21 09:30:00 Outpatient R CURTIS MORLEY [facility] [id number] [facility] 2020-12-20 00:00:00 2020-12-20 00:00:00 Telephone Curtis Morley [facility] 1.2.114 350.1.13.10 4.2.7.2.686 [id number] [id number] [facility] 2020-12-14 08:55:44 2020-12-14 08:56:16 [facility] 350.1.13.10 4.2.7.2.686 [id number] [facility] 2020-12-14 08:15:00 2020-12-14 08:15:00 Outpatient R JORY CAMILO [facility] [id number] [facility] 2020-12-14 07:58:10 2020-12-14 08:13:10 Office Visit Camilo Corley [facility] 1.114 350.1.13.10 4.2.7.2.686 [id number] [facility] 2020-12-14 08:00:00 2020-12-14 08:00:00 Outpatient R CAMILO CORLEY [facility] [id number] [facility] 2020-12-13 11:00:00 2020-12-13 11:00:00 Outpatient R EMILY ARGUETA [facility] [id number] [facility] 2020-12-08 00:00:00 2020-12-08 00:00:00 Patient Secure Msg Doctor Unassigned, Apison [facility] 1.114 350.1.13.10 4.2.7.2.686 [id number] [facility] 2020-12-03 08:06:52 2020-12-03 09:07:25 Office Visit Jordan [facility] Resident Jenny Avila [facility] 1..114 350.1.13.10 4.2.7.2.686 [id number] [facility] 2020-12-03 08:00:00 2020-12-03 08:00:00 Outpatient R [facility] [id number] [facility] 2020-12-01 00:00:00 2020-12-01 00:00:00 Refill Radha Trinidad [facility] 1..840.114 350.1.13.10 4.2.7.2.686 [id number] [facility] 2020-11-29 00:00:00 2020-11-29 00:00:00 Patient Secure Msg Doctor Unassigned, Apison [facility] 1..840.114 350.1.13.10 4.2.7.2.686 [id number] [facility] 2020-11-26 09:13:13 2020-11-26 09:43:13 Office Visit Taurus Guadalupe [facility] 1..840.114 350.1.13.10 4.2.7.2.686 [id number] [facility] 2020-11-26 09:00:00 2020-11-26 09:00:00 Outpatient R TAURUS GUADALUPE [facility] [id number] [facility] 2020-11-15 11:15:00 2020-11-15 11:15:00 Outpatient R EMILY ARGUETA [facility] [id number] [facility] 2020-11-09 16:30:40 2020-11-09 17:00:40 Office Visit Radha Trinidad [facility] 1..840.114 350.1.13.10 4.2.7.2.686 [id number] [facility] 2020-11-09 16:30:00 2020-11-09 16:30:00 Outpatient R RADHA TRINIDAD [facility] [id number] [facility] 2020-11-02 00:00:00 2020-11-02 00:00:00 Patient Outreach Mack Tacoscharlotte Moseley [facility] 1.2.840.114 350.1.13.10 4.2.7.2.686 [id number] [facility] 2020-10-29 00:00:00 2020-10-29 00:00:00 Telephone TrinidadRadha vidal [facility] 1.2.840.114 350.1.13.10 4.2.7.2.686 [id number] [facility] 2020-10-28 13:00:00 2020-10-28 23:59:00 Hospital Encounter TrinidadRadha luciano [facility] 1.2.840.114 350.1.13.10 4.2.7.2.686 [id number] [facility] 2020-10-28 00:00:00 2020-10-28 00:00:00 Outpatient Annalee FONTANEZTRINIDADRADHA VIDAL [facility] [id number] [facility] 2020-10-22 00:00:00 2020-10-22 00:00:00 Telephone Radha Trinidad [facility] 1.2.840.114 350.1.13.10 4.2.7.2.686 [id number] [facility] 2020-10-21 08:04:47 2020-10-21 08:59:28 Office Visit TrinidadRadha vidal [facility] 1.2.840.114 350.1.13.10 4.2.7.2.686 [id number] [facility] 2020-10-21 08:00:00 2020-10-21 08:00:00 Outpatient R TRINIDADRADHA VIDAL [facility] [id number] [facility] 2020-10-18 07:52:00 2020-10-18 11:07:00 Hospital Encounter Curtis Morley [facility] 1.2.840.114 350.1.13.10 4.2.7.2.686 [id number] [facility] 2020-10-18 00:00:00 2020-10-18 00:00:00 Orders Only Doctor Unassigned, Apison [facility] 1.2.840.114 350.1.13.10 4.2.7.2.686 [id number] [facility] 2020-10-15 09:59:05 2020-10-15 10:14:05 Laboratory Only Only, Pcp Test Curtis Morley [facility] 1.2.840.114 350.1.13.10 4.2.7.2.686 [id number] [facility] 2020-10-15 10:00:00 2020-10-15 10:00:00 Outpatient R PEYMANCURTIS [facility] [id number] [facility] 2020-10-14 00:00:00 2020-10-14 00:00:00 Telephone Radha Trinidad [facility] 1.2.840.114 350.1.13.10 4.2.7.2.686 [id number] [facility] 2020-10-14 00:00:00 2020-10-14 00:00:00 Telephone Radha Trinidad [facility] 1.2.840.114 350.1.13.10 4.2.7.2.686 [id number] [facility] 2020-10-14 00:00:00 2020-10-14 00:00:00 Telephone Emily Argueta [facility] - [facility] 1.2.840.114 350.1.13.10 4.2.7.2.686 [id number] [facility] 2020-10-13 08:47:44 2020-10-13 10:04:25 Office Visit Radha Trinidad [facility] 1..114 350.1.13.10 4.2.7.2.686 [id number] [facility] 2020-10-13 09:00:00 2020-10-13 09:00:00 Outpatient R RADHA TRINIDAD [facility] [id number] [facility] 2020-10-11 11:15:00 2020-10-11 11:15:00 Outpatient EMILY MADEAR [facility] [id number] [facility] 2020-10-06 00:00:00 2020-10-06 00:00:00 Patient Secure Msg Doctor Unassigned, Apison [facility] 1..114 350.1.13.10 4.2.7.2.686 [id number] [facility] 2020-09-24 00:00:00 2020-09-24 00:00:00 Solis Hollingsworth [facility] 1..114 350.1.13.10 4.2.7.2.686 [id number] [facility] 2020-09-23 08:43:07 2020-09-23 09:51:11 Office Visit Curtis Morley [facility] 1.114 350.1.13.10 4.2.7.2.686 [id number] [facility] 2020-09-23 09:00:00 2020-09-23 09:00:00 Outpatient R CURTIS MORLEY [facility] [id number] [facility] 2020-09-23 00:00:00 2020-09-23 00:00:00 Prep For Surgery Chan Souza [facility] 1..114 350.1.13.10 4.2.7.2.686 [id number] [facility] 2020-09-17 14:30:00 2020-09-17 14:30:00 Outpatient R [facility] [id number] [facility] 2020-09-13 00:00:00 2020-09-13 00:00:00 Letter (Out) Elena Norma T [facility] 1.2840.114 350.1.13.10 4.2.7.2.686 [id number] [facility] 2020-09-11 11:21:37 2020-09-11 11:36:37 Urgent Care Ashley Raines [facility] 1.2840.114 350.1.13.10 4.2.7.2.686 [id number] [facility] 2020-09-11 11:30:00 2020-09-11 11:30:00 Outpatient R ASHLEY RAINES [facility] [id number] [facility] 2020-09-08 19:59:31 2020-09-08 20:28:35 Urgent Care Samina Booker [facility] 1.2.840.114 350.1.13.10 4.2.7.2.686 [id number] [facility] 2020-09-08 19:45:00 2020-09-08 19:45:00 Outpatient R SAMINA BOOKER [facility] [id number] [facility] 2020-09-02 16:33:28 2020-09-02 16:48:28 Service Dispatcher Visit [facility] Skyler Ferrari [facility] 1.284.114 350.1.13.10 4.2.7.2.686 [id number] [facility] 2020-09-02 16:03:20 2020-09-02 16:33:20 Office Visit Skyler Ferrari [facility] 1.840.114 350.1.13.10 4.2.7.2.686 [id number] [facility] 2020-09-02 16:00:00 2020-09-02 16:00:00 Outpatient SKYLER DOUGHERTY [facility] [id number] [facility] 2020-08-27 10:22:19 2020-08-27 11:41:08 Office Visit Emily Argueta [facility] 1..840.114 350.1.13.10 4.2.7.2.686 [id number] [facility] 2020-08-27 10:30:00 2020-08-27 10:30:00 Outpatient R EMILY ARGUETA [facility] [id number] [facility] 2020-08-27 00:00:00 2020-08-27 00:00:00 Orders Only Doctor Unassigned, Apison [facility] 1.840.114 350.1.13.10 4.2.7.2.686 [id number] [facility] 2020-08-20 13:00:00 2020-08-20 13:00:00 Outpatient R EMILY ARGUETA [facility] [id number] [facility] 2020-08-19 10:34:33 2020-08-19 11:38:15 Office Visit Micheline Mixon [facility] 1.840.114 350.1.13.10 4.2.7.2.686 [id number] [facility] 2020-08-19 10:30:00 2020-08-19 10:30:00 Outpatient MICHELINE NIELSON [facility] [id number] [facility] 2020-08-17 00:00:00 2020-08-17 00:00:00 Patient Secure Taurus Acuna [facility] 1.2840.114 350.1.13.10 4.2.7.2.686 [id number] [facility] 2020-08-12 09:30:00 2020-08-12 09:30:00 Outpatient Annalee FOFANAESKYLER HOWARD [facility] [id number] [facility] 2020-07-31 16:16:45 2020-07-31 16:31:45 Urgent Care Olu Ashley [facility] [place] 1.2840.114 350.1.13.10 4.2.7.2.686 [id number] [facility] 2020-07-31 16:15:00 2020-07-31 16:15:00 Outpatient Annalee RAINESASHLEY [facility] [id number] [facility] 2020-07-31 00:00:00 2020-07-31 00:00:00 Patient Secure Msg Doctor Unassigned, Apison [facility] 1.840.114 350.1.13.10 4.2.7.2.686 [id number] [facility] 2020-07-31 00:00:00 2020-07-31 00:00:00 Orders Only Doctor Unassigned, Apison [facility] 1.2840.114 350.1.13.10 4.2.7.2.686 [id number] [facility] 2020-07-29 00:00:00 2020-07-29 00:00:00 Patient Secure Msg Doctor Unassigned, Apison [facility] 1.2840.114 350.1.13.10 4.2.7.2.686 [id number] [facility] 2020-07-28 16:05:38 2020-07-28 16:20:38 Urgent Care Samina Booker Unknown, Attending [facility] [place] 1.2840.114 350.1.13.10 4.2.7.2.686 [id number] [facility] 2020-07-28 16:15:00 2020-07-28 16:15:00 Outpatient R RUDDY, NAZANIN [facility] [id number] [facility] 2020-07-27 00:00:00 2020-07-27 00:00:00 Telephone Radha Trinidad [facility] 1.2.840.114 350.1.13.10 4.2.7.2.686 [id number] [facility] 2020-07-27 00:00:00 2020-07-27 00:00:00 Telephone Radha Trinidad [facility] 1.2.840.114 350.1.13.10 4.2.7.2.686 [id number] [facility] 2020-07-27 00:00:00 2020-07-27 00:00:00 Telephone Radha Trinidad [facility] 1.2.840.114 350.1.13.10 4.2.7.2.686 [id number] [facility] 2020-07-23 14:42:56 2020-07-23 15:29:43 Office Visit Aiyana Hollingsworth [facility] 1.0.114 350.1.13.10 4.2.7.2.686 [id number] [facility] 2020-07-23 14:45:00 2020-07-23 14:45:00 Outpatient R AIYANA HOLLINGSWORTH [facility] [id number] [facility] 2020-07-23 10:06:48 2020-07-23 10:46:48 Ancillary Visit Maki Jacobo Brian A [facility] 1.20.114 350.1.13.10 4.2.7.2.686 [id number] [facility] 2020-07-23 00:00:00 2020-07-23 00:00:00 Telephone Radha Trinidad [facility] 1.2.840.114 350.1.13.10 4.2.7.2.686 [id number] [facility] 2020-07-22 00:00:00 2020-07-22 00:00:[address] Bettie Bessie [facility] 1.2.840.114 350.1.13.10 4.2.7.2.686 [id number] [facility] 2020-07-17 12:40:52 2020-07-17 23:59:00 Hospital Encounter Skyler Ferrari [facility] 1.2.840.114 350.1.13.10 4.2.7.2.686 [id number] [facility] 2020-07-17 12:40:52 2020-07-17 23:59:00 Outpatient SKYLER DOUGHERTY [facility] [id number] [facility] 2020-07-16 13:30:27 2020-07-16 14:23:07 Office Visit Fellow, Cardiology Taurus Guadalupe [facility] 1.20.114 350.1.13.10 4.2.7.2.686 [id number] [facility] 2020-07-16 13:30:00 2020-07-16 13:30:00 Outpatient TAURUS TODD [facility] [id number] [facility] 2020-07-15 12:00:00 2020-07-15 12:00:00 Outpatient SKYLER DOUGHERTY [facility] [id number] [facility] 2020-07-13 10:03:54 2020-07-13 12:32:51 Office Visit Octavio Anderson [facility] 1.2840.114 350.1.13.10 4.2.7.2.686 [id number] [facility] 2020-07-13 10:10:00 2020-07-13 10:10:00 Outpatient R OCTAVIO ANDERSON [facility] [id number] [facility] 2020-07-13 08:09:29 2020-07-13 09:09:29 Ancillary Visit Rain Ross Brian A [facility] 1.840.114 350.1.13.10 4.2.7.2.686 [id number] [facility] 2020-07-13 08:00:00 2020-07-13 08:00:00 Outpatient BRADY WOLFE [facility] [id number] [facility] 2020-06-30 15:35:16 2020-06-30 16:05:16 Office Visit Skyler Ferrari [facility] 1.840.114 350.1.13.10 4.2.7.2.686 [id number] [facility] 2020-06-30 15:30:00 2020-06-30 15:30:00 Outpatient SKYLER DOUGHERTY [facility] [id number] [facility] 2020-06-30 09:49:13 2020-06-30 10:57:25 Office Visit Lucille Banks [facility] 1..840.114 350.1.13.10 4.2.7.2.686 [id number] [facility] 2020-06-25 14:51:00 2020-06-25 16:02:06 Office Visit Aiyana Hollingsworth [facility] 1.0.114 350.1.13.10 4.2.7.2.686 [id number] [facility] 2020-06-25 15:00:00 2020-06-25 15:00:00 Outpatient AIYANA INGRAM [facility] [id number] [facility] 2020-06-23 00:00:00 2020-06-23 00:00:00 Telephone TrinidadRadha vidal [facility] 1.2840.114 350.1.13.10 4.2.7.2.686 [id number] [facility] 2020-06-22 08:00:00 2020-06-22 08:00:00 Outpatient BRADY WOLFE [facility] [id number] [facility] 2020-06-22 00:00:00 2020-06-22 00:00:00 Refill Doctor Unassigned, [place]ison [facility] 1.84.114 350.1.13.10 4.2.7.2.686 [id number] [facility] 2020-06-14 12:54:45 2020-06-14 14:42:06 Office Visit Lucille Banks [facility] 1.84.114 350.1.13.10 4.2.7.2.686 [id number] [facility] 2020-06-14 13:00:00 2020-06-14 13:00:00 Outpatient R LUCILLE BANKS [facility] [id number] [facility] 2020-06-07 08:59:10 2020-06-07 10:09:23 Office Visit BirdRadha [facility] 1.2840.114 350.1.13.10 4.2.7.2.686 [id number] [facility] 2020-06-07 09:00:00 2020-06-07 09:00:00 Outpatient R RADHA TRINIDAD [facility] [id number] [facility] 2020-06-07 00:00:00 2020-06-07 00:00:00 Patient Secure Msg Doctor Unassigned, [place] [facility] 1.84.114 350.1.13.10 4.2.7.2.686 [id number] [facility] 2020-06-05 00:00:00 2020-06-05 00:00:00 Telephone [facility] 1.2.840.114 350.1.13.10 4.2.7.2.686 [id number] [facility] 2020-06-05 00:00:00 2020-06-05 00:00:00 Telephone [facility] 1.2.840.114 350.1.13.10 4.2.7.2.686 [id number] [facility] 2020-06-05 00:00:00 2020-06-05 00:00:00 Telephone Tony Grigsby [facility] 1.2.840.114 350.1.13.10 4.2.7.2.686 [id number] [facility] 2020-06-05 00:00:00 2020-06-05 00:00:00 Patient Secure Msg Doctor Unassigned, [place] [facility] 1.2.840.114 350.1.13.10 4.2.7.2.686 [id number] [facility] 2020-06-05 00:00:00 2020-06-05 00:00:00 Patient Secure Msg Doctor Unassigned, [place] [facility] 1.2.840.114 350.1.13.10 4.2.7.2.686 [id number] [facility] 2020-06-04 15:21:29 2020-06-04 16:31:00 Office Visit Jordan [facility] Resident Keri Yee [facility] 1.2.840.114 350.1.13.10 4.2.7.2.686 [id number] 113 [id number] [facility] 2020-06-04 15:30:00 2020-06-04 15:30:00 Outpatient R [facility] [id number] [facility] 2020-06-04 00:00:00 2020-06-04 00:00:00 Patient Secure Msg Doctor Unassigned, Apison [facility] 1.0.114 350.1.13.10 4.2.7.2.686 [id number] [facility] 2020-06-03 10:01:28 2020-06-03 10:31:28 Office Visit Oral Micheline [facility] 1..114 350.1.13.10 4.2.7.2.686 [id number] [facility] 2020-06-03 10:00:00 2020-06-03 10:00:00 Outpatient R ORAL MICHELINE [facility] [id number] [facility] 2020-06-02 00:00:00 2020-06-02 00:00:00 Patient Secure Msg Norbert Diaz [facility] 1.0.114 350.1.13.10 4.2.7.2.686 [id number] [facility] 2020-05-31 00:00:00 2020-05-31 00:00:00 Telephone Oral Micheline [facility] 1..114 350.1.13.10 4.2.7.2.686 [id number] [facility] 2020-05-31 00:00:00 2020-05-31 00:00:00 Telephone Pcp, Patient Does Not Have A [facility] 1..114 350.1.13.10 4.2.7.2.686 [id number] [facility] 2020-05-28 08:52:00 2020-05-28 12:40:00 Hospital Encounter Norbert Diaz [facility] ([facility] 1.0.114 350.1.13.10 4.2.7.2.686 [id number] [facility] 2020-05-28 00:00:00 2020-05-28 00:00:00 Orders Only Doctor Unassigned, Apison [facility] 1.2840.114 350.1.13.10 4.2.7.2.686 [id number] [facility] 2020-05-25 08:25:23 2020-05-25 08:40:23 Service Dispatcher Visit Lab, [facility] Stew Goryd Kennedy [facility] 1.2.114 350.1.13.10 4.2.7.2.686 [id number] [facility] 2020-05-25 08:30:00 2020-05-25 08:30:00 Outpatient R GORDY CORBETT [facility] [id number] [facility] 2020-05-24 08:26:48 2020-05-24 08:41:48 Laboratory Only Only, Pcp Test Norbert Diaz [facility] 1..114 350.1.13.10 4.2.7.2.686 [id number] [facility] 2020-05-24 08:30:00 2020-05-24 08:30:00 Outpatient NORBERT MARSH GABRIEL [facility] [id number] [facility] 2020-05-17 00:00:00 2020-05-17 00:00:00 Patient Secure g Cait Sainz [facility] 1.2.114 350.1.13.10 4.2.7.2.686 [id number] [facility] 2020-05-14 13:06:12 2020-05-14 13:21:12 Service Dispatcher Visit Lab, [facility] Stew Elder Welch [facility] 1.20.114 350.1.13.10 4.2.7.2.686 [id number] [facility] 2020-05-14 13:15:00 2020-05-14 13:15:00 Outpatient R ELDER TENA [facility] [id number] [facility] 2020-05-13 13:18:56 2020-05-13 17:12:41 Office Visit Cait Sainz [facility] 1.2.840.114 350.1.13.10 4.2.7.2.686 [id number] [facility] 2020-05-13 10:24:15 2020-05-13 11:30:53 Office Visit Micheline Mixon [facility] 1.2.840.114 350.1.13.10 4.2.7.2.686 [id number] [facility] 2020-05-13 10:30:00 2020-05-13 10:30:00 Outpatient R MICHELINE MIXON [facility] [id number] [facility] 2020-05-13 00:00:00 2020-05-13 00:00:00 Orders Only Doctor Unassigned, Apison [facility] 1.2.840.114 350.1.13.10 4.2.7.2.686 [id number] [facility] 2020-05-10 00:00:00 2020-05-10 00:00:00 Patient Secure Msg Doctor Unassigned, Apison [facility] 1.2.840.114 350.1.13.10 4.2.7.2.686 [id number] [facility] 2020-05-10 00:00:00 2020-05-10 00:00:00 Letter (Out) Norma Parker [facility] 1.2840.114 350.1.13.10 4.2.7.2.686 [id number] [facility] 2020-05-09 10:57:08 2020-05-09 11:59:21 Urgent Care JhonySamina Erna Unknown, Attending [facility] 1.114 350.1.13.10 4.2.7.2.686 [id number] [facility] 2020-05-09 11:00:00 2020-05-09 11:00:00 Outpatient R RUDDY, ATTENDING [facility] [id number] [facility] 2020-02-09 00:00:00 2020-02-09 00:00:00 Odilia Linn [facility] 1.114 350.1.13.10 4.2.7.2.686 [id number] [facility] 2020-01-27 13:30:00 2020-01-27 13:30:00 Outpatient SKYLER DOUGHERTY HOWARD [facility] [id number] [facility] 2019-10-23 00:00:00 2019-10-23 00:00:00 Outpatient SKYLER DOUGHERTY HOWARD [facility] [id number] [facility] 2019-10-10 00:00:00 2019-10-10 00:00:00 Telephone Skyler Ferrari [facility] 1.114 350.1.13.10 4.2.7.2.686 [id number] [facility] 2019-10-10 00:00:00 2019-10-10 00:00:00 Patient Secure Msg Doctor Unassigned, Apison [facility] . 350.1.13.10 4.2.7.2.686 [id number] [facility] 2019-10-09 00:00:00 2019-10-09 00:00:00 Telephone Skyler Ferrari [facility] 1.114 350.1.13.10 4.2.7.2.686 [id number] [facility] 2019-09-16 17:21:41 2019-09-16 17:51:06 Office Visit Odilia Mejia [facility] 1.2.840.114 350.1.13.10 4.2.7.2.686 [id number] [facility] 2019-09-16 17:20:00 2019-09-16 17:51:06 Outpatient ODILIA SCHILLING [facility] [id number] [facility] 2019-08-26 10:42:50 2019-08-26 13:40:32 Service Dispatcher Visit Lab, [facility] Stew Elaina Magallanes [facility] 1.2.840.114 350.1.13.10 4.2.7.2.686 [id number] [facility] 2019-07-17 11:47:16 2019-07-17 16:16:00 Emergency X CHALINO BROWN [facility] ERT [id number] [facility] 2019-04-08 10:55:00 2019-04-08 10:55:00 Outpatient Bill Luque Harish W [id number] [facility] 2019-03-17 11:00:00 2019-03-17 11:00:00 Outpatient Walk-In, Ludmila CHW W [id number] [facility] [address] [facility] 2019-03-13 16:00:00 2019-03-13 16:00:00 Outpatient Kami Medina Harish W [id number] [facility] [address] [facility] 2019-03-01 10:49:00 2019-03-01 10:49:00 Outpatient Bill Luque W [id number] [facility] [address] [facility] 2019-02-25 07:47:00 2019-02-25 07:47:00 Outpatient Bill Luque Harish W [id number] [facility] [address] [facility] 2019-02-24 12:40:00 2019-02-24 12:40:[address] [facility] CHW [id number] [facility] 2019-02-20 11:19:00 2019-02-20 11:19:00 Outpatient Obey Luqueard W CHW [id number] [facility] 2019-02-19 15:20:00 2019-02-19 15:20:[address] [facility] CHW [id number] [facility] 2019-02-06 15:50:00 2019-02-06 15:50:[address] [facility] CHW [id number] [facility] 2019-01-07 16:14:00 2019-01-07 16:14:00 Outpatient Radha Wilson W [id number] [facility] [address] [facility] 2018-12-09 09:46:00 2018-12-09 09:46:00 Outpatient Radha Wilson CHW [id number] [facility] [address] [facility] 2018-11-19 08:00:00 2018-11-19 08:00:[address] [facility] CHW [id number] [facility] [address] [facility] 2018-10-29 16:00:00 2018-10-29 16:00:[address] [facility] CHW [id number] [facility] [address] [facility] 2018-10-14 14:20:00 2018-10-14 14:20:00 Outpatient Walk-In, Only W CHW [id number] [facility] [address] [facility] 2018-10-12 09:20:00 2018-10-12 09:20:[address] [facility] CHW [id number] [facility] [address] [facility] 2018-10-09 15:00:00 2018-10-09 15:00:[address] [facility] CHW [id number] [facility] 2018-08-28 10:37:00 2018-08-28 10:37:00 Outpatient Radha Wilson Harish W [id number] [facility] [address] [facility] 2018-08-26 11:40:00 2018-08-26 11:40:00 Outpatient Walk-In, Only W W [id number] [facility] [address] [facility] 2018-08-16 08:18:00 2018-08-16 08:18:00 Outpatient Steve Radha [facility] [id number] [facility] 2018-08-09 10:39:00 2018-08-09 10:39:00 Outpatient SteveRadha [facility] [id number] [facility] 2018-08-08 16:20:00 2018-08-08 16:20:00 Outpatient Radha Wilson [facility] [id number] [facility] Results Test Description Test Time Test Comments Results Result Co mments Source [facility] [id number] 19:52:00* Test Item Value Reference Range Interpretation Comme nts POCT PREG (test code = 1605) Negative On board controls acceptable with C Line (test code = 3574) Yes POCT PREG LOT # (test code = 3575) POCT PREG TEST DATE ( test code = 3576) [facility] Urinalysis w/o Specific [id number] 19:52:00* Test Item Value Reference Range Interpretation Comme nts POCT PH U (test code = 3254) n/a 5-8 POCT U LEUK EST (test code = 3263) n/a Negative - N egative POCT U NIT (test code = 3262) n/a Negative - Negati ve POCT U PROT (test code = 3259) neg Negative - Negat bj POCT U GLU (test code = 3256) neg Negative - Negati ve POCT U KETONE (test code = 3258) n/a Negative - Neg ative POCT U BLD (test code = 3257) n/a Negative - Negati ve [facility] Hemoglobin A1C [id number] 18:33:00* Test Item Value Reference Range Interpretation Comme nts POCT HBA1C (test code = 4548-4) 6.1 % 4-6 A Lab Interpretation (test cod e = 95410-0) Abnormal [facility] PELVIS COMPLETE WITH [id number] 22:04:28EXAM: US PELVIS COMPLETE WITH TRANSVAGINAL HISTORY: 39 years-old Female; Provided indication: pelvic pain . LMP = 03/23/2024 TECHNIQUE: Transabdominal and transvaginal ultrasound imaging and colorDoppler evaluation of the pelvis was performed. Director Nicu images wereobtained for the record. COMPARISON: Pelvic [...] is unremarkable. Cul-de-sac: No free fluid is present[facility] [id number] 15:21:08* Test Item Value Reference Range Interpretation Comme nts Case Report (test code = 1319974607) Surgical Pathology ?Case: [id number] ? Authorizing Provider: ?Azalia Michel MD ?Collected: ? 03/24/2024 1200 ?Ordering Location: ? ? [facility] ? ? Received: ?03/24/2024 1300 ? Center ? Pathologist: ? Karime Rubio MD ? Specimen: ? ?PERIRECTAL, fissure biopsy ? Final Diagnosis (test code = 1573040340) v6ctwIPdZTSbz5ekSYPdmA FuZzEwMzNcZnRuYmpcdWMx RFdsggUvRLcsxBfeXUW1KH SvYN0rbEjgrKh9rAdkSFKr gyQ1cBFhBRsvh8gbLOA7z0 oonsdrSEVdADgpNs1dbQSe vPjgXdLsHKQkOVi6rJ42ES YzoA4yoFBsTZa0ASAysLFd gbAtXdElKWXqcXQukCI2JF RdRA9yyrgrKFexLHxcVWTb wuF7SBWjhXHgX7ZqDNFbXW 8wnezzJWT6KWutVAKhPRT5 TzLgYQIbc5Nsvud6GeVwxS FyZFxwbGFpblxmczIwXHBh ciBBLiBQRVJJUkVDVEFMLC KTDQVZOWLUZJEFWM6DS9t0 XHBhciAgICAgLSBBTkFMIF EMDTCWB3VQDJ9OJ95AQNZZ HKGDKEQPRl2HC91ZVMthO3 5EU5JCMOPOSYEYRQSDLSYk WoBOJ8BJVnkniPYvDMGjDL VvIXHSIbRnTx4EOZexN7mZ T59OCyYJVvLBOV4KZRZFU0 5ccGFyXHBhcmRccGFyXHBh kx98EDJ5JeNug2B3CKZgSh AxTBQwWU7cjMstFKRyIM2k XDZxZ8grlO4fhmf7IwSjUW QoQwC1QVQwueM3Ion9PHFx YIwji9own1UaL5HfcZKsbY h6i8saQGSdSiY3cSJeDPjn M5eoudFurEAaAFEhQCj9oW itZtWnAIEdh0aqliGnJmFv NKOxWBQmFKWdsXclqve4rL 68LAKgpK9njXRqWAbuuaWu AtA7EIqgDPAmNrT0GHHfnS FpUFMdO7qeZNQeBGgiFVDj SIyegOLrROH0tGkyj5H4lC VzaGVldHtcZjBcZnMyOCBO u5HrJAh2nJelD4YiYCXnKj C9mCYoYWCpZRxcKLAsAVBa qvN8cH33MWyycnL3wRQcv4 Mvl75on868wN4wvYOcLMF1 FPOcZQXcdYTcZEHlJQQ7XX WeuUNjZ6xjYIQaGI0ruyrf MBddMEctQCTfxJJ6SFMmwA EjL7FvNORsITulTUXhrsl8 MyUdBe4ngZYpfEqtZPani6 nqe1kgzQPaCrz0EPBaCxDi KgpoCNxym5Umj7edKGHwgj 6xPRC6oNLjjYmvc9B2gOQt YNMjvTVmycNmNXCyRrM6OO urTT1eoy92MHAsREM4yx2q bGNccGdicmRyaGVhZFxwZ2 LuPXAyh061DQGkU7QaPKVu q7C7cgHaIiDrBZGgxOW3df Z0OUYuCGd2hWEfsoS5jzXt pWKhL9jvcT2mOTRlBT1fen oac9gdAWkyXFhzBSAoaWX6 byD9VGBynWXkE8MilM0pIG EuQAvgSZAzpkv3UoDcJk5q dGVyeTcyMFxzYmtwYWdlXH BnbmNvbnRccGduZGVjXHBs YWluXHBsYWluXGYwXGZzMj SwqVycbRkqxS5jPgZxCbFo YFpfVH2eDZCcV4mtqZGhWK RmGXCkU4ifWwOhtJ4jfFmm MVxjZjJcZnMyMFxwYXIgSS BoYXZlIHBlcnNvbmFsbHkg gtL1rGO4RIEyBFgkRBTnXD ZpuWRjbq1laWsxTLYmTJ6p IGFncmVlIHdpdGggYWxsIH R2RWMsdSOatTNxrLOeCLHi eSByZXNpZGVudHMsIGZlbG vix5Kzm9YubWD1eF8dy1fq q8PkMHXnsDM4XE57gzW6cM 7vKOSbUY7mWBOjBL0skHDu eCNuJJTbn12yyXgrznErQX BvcnQuXHBsYWluXGYyXGZz MjhcbGFuZzEwMzNcaGljaF zxJczuGzXgHUWlINjuI2yr AqUyFuHjNBysEXB4mU== Clinical Information (test code = 3793627071) José Luke is a 39 year old female Gross Description (test code = 5037886034) p1jhfAHkKCZwbDFREOX4PB SkYF6hyViavVa7sDibFOWu cnE7gMQkHMokl6nfXNE2z3 oqmaUWDnokOVTpVK6kJZtc JZXaZU8gRkBgPURvDhMvWF BhcGVydzEyMjQwXHBhcGVy qDJ7YASeHC2zmaozEYxpDC vvDOTgjoK9PAIfoWGoS1Qr MXSfES3oevcjNMQ0UPSHXn jkSi3ybJNqrHgiWcBjQfZn NPWvRGMhGOUzx7aroyYEcd aomVe6pJ2NILFxD0KbLB7P i8xkGYUkfSGvVLO6ERjtk5 ehNOxsCOJ2AKLqXKEtYJFy IZ1JWkZdFZP5JAT4LKSbRk B7JNp3JGBYSRQbRAA4UlU9 JLV3AFu0OSGdZK2oUJzhgY UwJBalCqglCFyvA166BBgk DQWrY8QoI7SsWAsqIeGkAV juYBJwUZBeZUojGVLiE9ME SWYdUMH4LWo6GaAoPFq0CG w6RY5KZkKmHKMcEvI1TVky JCHnEHp2IYxwXD6LOHKdZx xwBFGfRAIxZLW0XfgdLKv2 IDIgXFxzcyAzIFxcZmwgXF xgM50crRZwRYUMBnsyoPXo blxmczIwIFNQRUNJTUVOIE HygYNpE1ztTjNlYpkoPMDw DQpccGFyZCANClxwbGFpbl xsdHJjaFxmczIyXGVwaWNO DJA6XQ8oNUIFKfpfbGDzLQ XsGLfRwNClrN4oxoTVEUbi LBTtG2WbfxBsTIomFHFlnb 1hbGluLCBsYWJlbGVkIHdp dGggdGhlIHBhdGllbnQncy BnBL3lRMWSYVTiyB7hDJNi ICJwZXJpcmVjdGFsLCBmaX HsfSSrTHSxt3OfdYFbZD3x ZWUeodMyf7FzSF8sMJTzt1 idZ3enYGZkjc5yqN5tOHtf aeNflApqvyMxb1R8IBIfc8 E3ZYYyduCkyBFhjELzMW53 RRlyDI7tEUcjPF5nJMWaGR 6yKCIkPCMjdWYozO0qbkEv ahKknNw3NWTrYMQaskAeUW CvWxuiyUR7CTGoKyWilcXy x9IbuEz6vKBmBCbwSYMufF 6eyH5wSTTvRQObsqIMRbpz ZAVgIYstz2RsXBuirYanBM HsJeWqGBqZXE84mCKhGUn1 LCBQQSAoQVNDUCkNClxlcG apMlNqyEZwOkF5LTRotJUj XFM2EL2hkVolVUPjU6FvB2 BxrfD0KTBszdMGAiesHXJs IA0KfQ== Disclaimer (test code = 0815051192) s8axsREsVGRvx0mdVSQrzH FuZzEwMzNcZnRuYmpcdWMx LOioptYlGDkqv5TrW9XiZd AwMFxhbnNpXGRlZmxhbmcx QWMyZFV8htOfPDHuRJvaJE ExYMumEq4uhRHhwBnpKjIl XGFhz2fcahATKOqnWdOfB0 69NWNhTLmvk5nwa5McZOMj xMHzi2R4KMWUbagryTh8lI leE53nb2V2HbgzY4uzRHWo GQKuN0IgBO4eHKFrHby5ZQ M4EPP1JBPmHRBoE1XcSL8d SOFreUJvLCo2u8wbgAxmCL KdXEZ9h9hyXHbyarUwXG1y kk5taFh0a9hlknHoDUFgWE XsvQAVGEMbC7HiiAiqXz3e wUh8nTruSiudKYE7Hew0LJ 6idg04owy3oEjnQBNrwbbp NjF0OEmdRNMnjcmsLUx6LS qlRJKkeEM2FJHfbSQyT5Kk UYXpQJ4nepl2EQC3FXqkWY CjMhH7TUUosRJkRVOvaTdl EDogt207HRP2RsRbZZ1iA6 Yhy4S7vX8icRKdXBXjbXRu WsUlMQFhoy8kvQUaNKrly1 JsOGM7vfA9qLQlrSNzTDHn WG36Aoksk0PjOtafo2KxX4 2vwXG6TVjjh7kbDR2rFsI1 pnRfVPpva3tknS7fCqG3EK pqGY5tLJ1fCURegP7dloeq XHBnYnJkcmhlYWRccGdicm PeBo9ohEzbEHO5WEocD3cw sI5uKzA3PNsnH9zbkP8xPP z8LEsheCE6EYTcxP9zNF2i aibtl6veIEueZCloDWDhux F6ehO8ALKtcBBmD6QyeE4v AZWpQH7deqrdh8brPNI9ZD qjPAFiTYQ9PbKvTWWbe4Aq fgn6WoIat2TvuRHhLAyfC0 4df086WSVsqkLjE5aaeAOw tvjqkQCwqflyXQygklT7FF XadtJwt1VlRNVbSUS6XIxx LDuagBUxCUOgtFlrr8weG3 RscGFyXHBsYWluXGYxXGZz MjBcbGFuZzEwMzNcaGljaF tpPMlzGtHsFWUrNOkpW9gg MtWgB1EyPVJhXxKpbYMtM0 ggVGhpcyByZXBvcnQgbWF5 AMvrP4h5AESvwjOjdNt6hd MbKdKeNIVkPDU7XXfryMMu HURbn9YyqgrshBVoEe1zrZ KsBEQosA7kIJSiXLJrMWkw DA9woHx3OGZHuHVzlMOhKd CJILPeWB92dsCqKTLPzcam j9H9LWjaOZSvq9LgzNLqE0 mtt6YnBSHsf48lHL6vk4D8 w1ckKBM8WB6lb2DaXXFcnT CypHBxKCKxw9Hlmcqhq0Jz CXKhxuBbx3ZoIHGrenTaiF TkAFKikhDbdc0yuaYxCDFo MYHnM5EdsqkymDtxddXpZZ Ugcx0xfeBvCIZ1EIKQHHVi OKMuu9QgnC7ovHXUDUO8oZ Acqi8gkiVBsXDbWWVtxx15 ZBOaUA4pL7zrJRPoXRShhw AbqKXmg7EdBYYgvHR6wKIm KX0WNwEVc04dYHNmEWZDaq YaDLFqaBgabMK6byK6uZ5a IChGREEpLlx+IFRoZSBGRE BtQY4zjbUcq4PcllAfiZnn DQBokTCbq6ParARhy0BciP wzq2GuhONbdZTdEB2fPIAz clxwYXIgVVRNQiBMYWJvcm X9a7CtEGZoBOOvEAM1qGuv ays1YZSbrL5gLGSiR3nxph zjZGsrVRGiv6RvwM2kiTXZ kIBms3TbpIGbyXWLcNJvHJ 4sqhZyEVgGCTxRLZJ2puHl KEIkx9FiMDzuR8njM58ngZ octFa2cMT6BPG9yW8yEgy+ IFxwYXJccGFyIEFwcHJvcH BpDOFptTegrxNrN1XlkvIu kB0aqARflcJoPM7kAW0jC8 V0iUFlATGvrzMdh4hgRRwv dmUgYmVlbiByZXZpZXdlZC Pdo9JeGIhpFOK9OMwiuhQs bmNsdWRpbmcgSCZFLCBTcG NkgVNyICA0MYyhffWnenSy LB1thG3thFvycJ7ymUVsxG W6rfvdHNKnXGWuzKkjUDYd LW3jgVnbkO5wUnGjLpRoKJ viOK2mVJEdL7hhfNQhVZXf SBIxA6kuYkQenY5dwDwmZR xjZjJcZnMyMFxwYXJccGFy XHBsYWluXGYxXGZzMjBcbG FuZzEwMzNcaGljaFxmMVxk MdCtYZWhMEijM6dfLkCcV6 EpFNOoIsRthUNjZ4doUTqr BHM9KCFjNV6zcZSmBC07yY Opx2yhJDsnqEwdos1jI56d aDEdJDlkmWfhBYTeu71ky0 VgOHOkptTyfg1kQFKhieY5 sE3yNOQruQhzCAGycLMuOJ Wlo1TsVKbyeNTtoqKySAsn UYGsXZMciEOgkmO5jjRwwc DtboKlUYOabNphWKNcb8Jp FHOaJCwoz4Tksk2cxFImBN WjzfNStQpjrVFyzE1tY0Ya TBYgUCUwfh5aLZEquN9dCQ wir6TyafocLJFcFZEyVHUf muCpdx5nYSCmdONNBB5CXT ifpYTes9QvrlGiC5wWFXS0 NUQwNjYwMjgxKSBleGNlcH CrRKEked59QGJkzB8faSyg XGSvdU2lhQ5ccWmolY5qOk AeGhVnXUkjQR5aDNNaB4jc nXAmBVBaXTRjV1vsTmCkyV 9jaFxmMVxjZjJcZnMyMFxw YXJ9fQ== Embedded Images (test code = 8090818269) [facility] GLUCOSE (AUTOMATED)2024-03-24 14:48:42* Test Item Value Reference Range Interpretation Comme nts POCT GLU (test code = 8661368294) 111 mg/dL 70-110 H Lab Interpretation (test cod e = 24720-0) Abnormal [facility] GLUCOSE (AUTOMATED)2024-03-24 14:48:42* Test Item Value Reference Range Interpretation Comme nts POCT GLU (test code = 4176409879) 111 mg/dL 70-110 H Lab Interpretation (test cod e = 50354-6) Abnormal [facility] Idpp6468-11-17 14:33:00* Test Item Value Reference Range Interpretation Comme nts POCT PREG (test code = 1605) Negative On board controls acceptable with C Line (test code = 3574) Yes POCT PREG LOT # (test code = 3575) POCT PREG TEST DATE ( test code = 3576) Lab Interpretation (test cod e = 54597-0) Normal [facility] Suqd1442-03-31 14:33:00* Test Item Value Reference Range Interpretation Comme nts POCT PREG (test code = 1605) Negative On board controls acceptable with C Line (test code = 3574) Yes POCT PREG LOT # (test code = 3575) POCT PREG TEST DATE ( test code = 3576) Lab Interpretation (test cod e = 18847-2) [facility] 18:54:58 These images do not require a Radiology diagnostic report.[facility] GLUCOSE (AUTOMATED)2024-03-20 18:05:56* Test Item Value Reference Range Interpretation Comme nts POCT GLU (test code = 1393298361) 124 mg/dL 70-110 H Lab Interpretation (test cod e = 06553-3) Abnormal [facility] Xmyx1248-91-74 17:43:00* Test Item Value Reference Range Interpretation Comme nts POCT PREG (test code = 1605) Negative On board controls acceptable with C Line (test code = 3574) Yes POCT PREG LOT # (test code = 3575) POCT PREG TEST DATE ( test code = 3576) Lab Interpretation (test cod e = 01754-3) Normal [facility] Hemoglobin A1C Ajbf6654-16-35 19:40:00* Test Item Value Reference Range Interpretation Comme nts POCT HBA1C (test code = 4548-4) 9.5 % 4-6 A Lab Interpretation (test cod e = 99483-7) Abnormal [facility] Urinalysis w/o Specific Jnwaxed6073-13-51 19:31:00* Test Item Value Reference Range Interpretation [...] = 3257) 250 Negative - Negati ve [facility] Urinalysis w/o Specific Cwveicw6576-03-03 19:31:00* Test Item Value Reference Range Interpretation [...] = 3257) 250 Negative - Negati ve [facility] Yotg5831-12-06 19:16:00* Test Item Value Reference Range Interpretation Comme nts POCT PREG (test code = 1605) Negative On board controls acceptable with C Line (test code = 3574) Yes POCT PREG LOT # (test code = 3575) POCT PREG TEST DATE ( test code = 3576) [facility] [id number] 19:16:00* Test Item Value Reference Range Interpretation Comme nts POCT PREG (test code = 1605) Negative On board controls acceptable with C Line (test code = 3574) Yes POCT PREG LOT # (test code = 3575) POCT PREG TEST DATE ( test code = 3576) [facility] Hemoglobin A1C Jern3239-66-47 20:36:00* Test Item Value Reference Range Interpretation Comme nts POCT HBA1C (test code = 4548-4) 6.7 % 4-6 A Lab Interpretation (test cod e = 71140-3) Abnormal [facility] Hemoglobin A1C [id number] 20:36:00* Test Item Value Reference Range Interpretation Comme nts POCT HBA1C (test code = 4548-4) 6.7 % 4-6 A Lab Interpretation (test cod e = 85480-6) [facility]2023-09-12 21:04:40 These images do not require a Radiology diagnostic report.[facility] GLUCOSE (AUTOMATED)2023-09-12 20:25:01* Test Item Value Reference Range Interpretation Comme nts POCT GLU (test code = 7457062907) 134 mg/dL 70-110 H Lab Interpretation (test cod e = 57303-6) Abnormal [facility] GLUCOSE (AUTOMATED)2023-09-12 20:25:01* Test Item Value Reference Range Interpretation Comme nts POCT GLU (test code = 0355691208) 134 mg/dL 70-110 H Lab Interpretation (test cod e = 37006-8) Abnormal [facility] Fqtt3027-07-79 20:06:00* Test Item Value Reference Range Interpretation Comme nts POCT PREG (test code = 1605) Negative On board controls acceptable with C Line (test code = 3574) Yes POCT PREG LOT # (test code = 3575) POCT PREG TEST DATE ( test code = 3576) [facility] Yknp4678-21-01 20:06:00* Test Item Value Reference Range Interpretation Comme nts POCT PREG (test code = 1605) Negative On board controls acceptable with C Line (test code = 3574) Yes POCT PREG LOT # (test code = 3575) POCT PREG TEST DATE ( test code = 3576) [facility] GLUCOSE (AUTOMATED)2023-05-11 18:13:39* Test Item Value Reference Range Interpretation Comme nts POCT GLU (test code = 9060413781) 144 mg/dL 70-110 H Lab Interpretation (test cod e = 54086-0) Abnormal [facility] GLUCOSE (AUTOMATED)2023-05-11 18:13:39* Test Item Value Reference Range Interpretation Comme nts POCT GLU (test code = 2662326884) 144 mg/dL 70-110 H Lab Interpretation (test cod e = 54059-0) [facility] TITER AND$CONFIRMATORY YIFYXNE-[id number] 17:00:00* Test Item Value Reference Range Interpretation Comme nts RPR (DX) W/REFL TITER AND$CONFIRMATOR Y TESTING-Q (test code = 45475-3) NON-REACTIVE NON-REACTI REPORT COMMENT:FASTING:MAHESH Porter WILLIAMS (test code = WILLIAMS) PERFORMED BY [employer]; [address] [place] [address]; SAMAN JOYNER MD,PHD. [facility] PUKS2666-31-23 18:58:00* Test Item Value Reference Range Interpretation Comme nts POCT PREG (test code = 1605) Negative On board controls acceptable with C Line (test code = 3574) Yes POCT PREG LOT # (test code = 3575) POCT PREG TEST DATE ( test code = 3576) [facility] [id number] 18:58:00* Test Item Value Reference Range Interpretation Comme nts POCT PREG (test code = 1605) Negative On board controls acceptable with C Line (test code = 3574) Yes POCT PREG LOT # (test code = 3575) POCT PREG TEST DATE ( test code = 3576) [facility] [id number] 17:26:34* Test Item Value Reference Range Interpretation Comme nts Case Report (test code = [id number]) Surgical Pathology ?Case: [id number] ? Authorizing Provider: ?Norbert Diaz MD ?Collected: ? 04/09/2023 0905 ?Ordering Location: ? ? [facility] ? ? Received: ?04/09/2023 1134 ? Center ? Pathologist: ? Karime Rubio MD ? Specimens: ? A) - STOMACH, 1. GASTRIC BX EVAL H. PYLORI ? B) - ESOPHAGUS, 2. DISTAL ESOPHAGEAL BX EVAL EOE ? C) - ESOPHAGUS, 3. PROXIMAL ESOPHAGEAL BX EVAL EOE ? Final Diagnosis (test code = [id number]) m5oonHPxJDVjk7gbQPWfhJ FuZzEwMzNcZnRuYmpcdWMx IHtccnRmMVxhbnNpXGRlZm xtrzrlFKYgMTR8rxQtTOLc NBK5TEO1OrNsEPEwXuDsDV CvPNRmr5acx2VquCShyHRc XHoxsSZqxqPllr19jMF3qH 39JN7nXSKdPgM3PKGunuS1 Yfx2VIPnQAIehCUyD103t0 trw9kqckRukFK9iLhhNDPr jtooGlI2HEvrNNZuatvlGV g7VYvtDHQiuJD1MCZqhPGc W3ZgAHRtYH5ahtm0KLH8AP biMRUxYvT3ZLTzcPYaRGPm yFohINhbq937QQC0BoCtFX MoljAcnGfkqJ6jSnWaEAiu HFPpLT5nG3GIYJVSEQmcWd lPUFNZOlxwYXJcZmkyODMg NARFFPQBSkfMVK6ZG89IGF CEPLSFLV4GSBJMRHtOOC8A LCIlR0wJSrlOOAHdzvHwVI 5PIElOVEVTVElOQUwgTUVU QVBMQVNJQSBJREVOVElGSU VEXHBhclxmaTAgICAgICAt KC9OPCabZWIMIS9UAREUAq dBTklTTVMgSURFTlRJRklF RCBccGFyXGZzMjJccGFyXG ZqHgMcRl8cOWYQGGdFC4VZ YOQMCTXXHGctFWIFK3XDFG pccGFyICAgICAtIFNRVUFN D7LPLPCKYPETQVaWQA1pA2 vBDOTXQdUNXNBMK8eJA4eY SJbuA1uJQjpBSNjlBLPwDY OjEC2iIp6oWBVHEJGUI2Pa K2VyNO9GNQ2RDClDCWgCEL OMZ6HMQXfRJSwCQKfICU6F SUZJRUQgXHBhclxmczIyXH UanlbdohBoYXLkVTXNS2CP QUdVUywgUFJPWElNQUwsIE MWB0WGTXuyqJFnYWRbEKZc MADTVNEHH2JMONIZLBQBSG lMFB8zJ0oLSCOAKrQGXCHG F4ePU3uTLKtmI9gLTqmFSG koZUBqMLUgOI7gDl0wUSAT DHULB6KbB6HyEE6CXR2EGW aBLWmHTZEKR8LVLQnGHWsO MAnPRK2USWHCMYLdVITcnx omTLNbIVBrcp91TXL9BvIq y3S3GIXjKmGzLTPwNC7buE ubOQGwQC6fAAZaE0lqnO0j ids3NyLoFNUkHbL6KZGvbj Q1Wgi9CJMkYBkdw9mdj8Bo S6TppPNwbZi4d6kcRZLhLb I9hXDwVHloZ2etkmCrsYPg SIFwHBi7bPglHsMaQCIzp0 lzcyBcZmNoYXJzZXQwIENh kSkslak1oI38GKZmgT7ttF XhMJzcrmPcNvX8MYjsZNXj FlE8UDUjmESxSJHrY9ulSE QwXGdyZWVuMFxibHVlMCA7 jPzou0F0bWNqyBIpfQulFk MdIoKeFBFLi5TbBSm6rQyi K1IkNROmHiU7pJGjTWKzZO fkCSNiAJNeghS2hC03UHio tvS7cLGal9Brv30xs671iG 0ugSXrWOQ5JPVeYAKeaPTh DPSgIZN5ACIwtJEnH1teAW EiLI0uuqloDYchCGgkUKHb bUZ4JBIerIYeZ8HxMXRvBJ duEBKyqjv4AkCqXs7rtMVl tTbkWNmyx0hrc3ycpRPdHd f4LHNzApJuQgfmHIgft6Tl b0luAIVoze5qQGK9nFBrkD jct2O9jECjTHWduVObuwRc SOGtHoU8FQtgLT7vdt07ZB LhKKW0qj5qqVHcfPbnffCj tCNbUBajU4OsIWFdm292AY UoX0VuUXUhs4G9otZsCsMp SWSndMY5piW7DZGmBSq4uA XseiH1duYrsLNwD4wjkU4p EDWzDN9fnywcy6ohQMjsZL avYABcxRN1lqY5PGIoqHWj W5ZwoF1zRCYrNAebMWVkqn p7JiQcSv8aaSQngPpeCSpb YmtwYWdlXHBnbmNvbnRccG duZGVjXHBsYWluXHBsYWlu XGYwXGZzMjRccWxccGxhaW 5kKiGuWhFzQFpzPI9xAIVm W6sslLIbMYPtGTVnK5uvTn YzsQ0akHxqHNvwKqYbWdQr MFxwYXIgSSBoYXZlIHBlcn YyqvOxkLaisiD1rFX3JZUj HPhaKPDcHGKtdOBgnd2vuZ qiSZMnVP7iVNLfsoSmLOva zIuoCVajWXD7MSMonOXsqJ MgbWFkZSBieSByZXNpZGVu nBDeSHLrqKbwa4Wqo5YhqG A0qA3ed9dtc7AzXNZnrKX8 YV74tuP6lA2eVVFxSD4bPG OpED7trKPugQYxJJQsf82h dGhpcyByZXBvcnQuXHBsYW luXGYyXGZzMjhcbGFuZzEw MzNcaGljaFxmMlxkYmNoXG VlHSwfL6iyTrQaBwMcQZnc RKW3tFmiwmFaKEjey6CmA0 YyMjAwMFxhbnNpXGRlZmxh yrqhWPQgKPP2enTyBCBwUV emVADwMXisIk3zcGAuoYct QyObDJXmh6mpffQDMVwjLk MeX291LANxBKjou8mhe0Rq HYGujYXah9W6QJFAyoukqA h8nBojW51rv4X0GpytL0iq PLTrDXPmK7CiFP7sLFToWm s9UMS1QYQ1AEZoORHqF3Pl XQ4iVHEplHIlSHf4u0okhB udKRZxTVO9f7llTBimdfN4 PC3kbq9bySh0u9skcnTbIM KfFOQrqXHOIPHiI4BqbPcz Bz2pfVc0jTplGnadKLD2Lg r2OL8tea44wqr0yNefHILk wrigErX8YYoyQCEwyeqoYO z7FDpyGGUoqYX5KJZgnZNi K5JxHLJzJD8ivtx6SIP3VP ygFKNjDyD2DELdkMIzEHCn tSvfVYjqd744DGN7ZkBeRW 1bB6Nyx2X8eM7mzYWfDTUc tFRgGjRzPPYhqk8nfHIrYK wiu8CwK22krET4DPudw3mp EM5cLgS3xsLjQPafb5xhiC 3sFdR1BJugEW3ghz19KKKr REI8xq5rvDOlvMpqbuUpaW YbCZgaS7LwNVEet381AIUm D0UrHTMsb8R1hkQxMgRfNM MbmOS1tjH8HJFuRIf2jPAb amH9pfWuzNCqP5femS8zLP SiOP8erfuia4hgWUnmXUdh OZWuqWH6arF8AGKvwSWcU4 XrdF1wHHDqBHnkQUTfdwy8 DcPmIb1orCSirTdmFMxzIq twYWdlXHBnbmNvbnRccGdu ZGVjXHBsYWluXHBsYWluXG IiLNJsAtDjjIYxKGcmm2Jo aoWzvCyoOEUxSZr2uzEini uwhYy2rCFqiNaxSJMbqNoc jX8vLwKxWzAoPWgfZX3cRL MyI0ijhCFiPAWvITAwN9oz CyIerF7khUpjAJqxMvHvUv MyMFxsdHJjaFxwYXIgSSBo YXZlIHBlcnNvbmFsbHkgcm L9yRT5AKSzWPobZXPqBPRh vKHfkp2rrZabRPUhGY1rBE FncmVlIHdpdGggYWxsIHN0 YXRlbWVudHMgbWFkZSBieS ByZXNpZGVudHMsIGZlbGxv d2Ebk7JnzHS6vS6cq6qbg3 GoHLRgdRJ4QB64ceV5wE9r NGQwZO6yMEPzPV4laBLqcR BnOCLog65fyJbpluUyMGCl cnQuXHBsYWluXGYxXGZzMj BcbGFuZzEwMzNcaGljaFxm PZazUoBvBCIrVVicL0ckRg QgY6ZfXIHhQlWzdCWeONCa ucssERFfa3ZrHoZea9quDY spu8ziiLz6VFmdvZTfccst LBigkxT0MWWgRQqjQLPuPF ZzMTRcbGFuZzEwMzNcaGlj aFxmMVxkYmNoXGYxXGxvY2 iwZqLlX3PfEFHmWZVfmPZy D2emHAN9nW4qx7pfn2RixG LyQuJgg7kzrwVuZJEzzAAv bdFsrRNiBZUvl7DwBUXsQK FsPPDQJe6MOGIozMUrJ3l0 gJAEFJ1vsEOuOVPeOHJxB3 VnInDBudJga8S5KVTssXAw WATZEZHtsQKlC9z2zOnwRV ozLho3FyHvmBoknF5iCsVj ArDlRQlnSL2jRISmD2akrO YjDLUeYVDpO5dcLeJkrD5h aFxmMVxjZjJcZnMyMFxsdH RrpYkfLUB6kU== Clinical Information (test code = [id number]) José Luke is a 38 year old female1. GASTRIC BX EVAL H. PYLORI2. DISTAL ESOPHAGEAL BX EVAL EOE3. PROXIMAL ESOPHAGEAL BX EVAL EOE Gross Description (test code = [id number]) d0fbrHSvHYEckTLUCYL6XM DcKV9qnPjxoFe1oDjtLTLx loI8vKChLIoyv8rjLQS7e4 ylhtCFNpbmIGTzFI4aCZal YOAtMW0iNwMxUKJwPnKpPW BhcGVydzEyMjQwXHBhcGVy eQJ7UUHnEH5oalguKVdiGJ ixPGPfumC9HCFcgCUuX8Zx GJDlJH7vexnvDUJ8VJTIOo pmTj0aqYLagKkbEzMsRlIx YXJzZXQwXGZuaWwgQXJpYW x1pH3GHmxeHKO2HWPDPzxw DrifyTnnk1NogNGuRGNuYJ xcaWQgNTEwMDAgXFxkYiBP LuIsCnF4DCUzNJnhMwR6NA d2WZCTINExLjy1EAM6YGG3 HVt3TDUgCV0qZYxyhPJzCZ hyXehfKYsiL950ZMkrZBRb B4XjQ3UkDOooChZzIAqlNF ToBDAiWQzlBJLvL1WRMLYv HLb1Pes0FhXdHRc4ISfvM3 GYFMMjESMyNLT5NbL1KlF4 OJi8JNIOHq8lKIv4WCT6Hl R1FbL3PJfsYwVfEFVuPzEa HZWqGLFkQWsesYAcRC3pnM tyIXIbGD8VMGYrNXprVRFt YdOdN3ETN1oCDA4rCZiojG JjaFxmczIyXHBhciANClxw VNMuAV6YMDIzGKayYNh4vh TnCGCgCpHbMRTxW36jw5ND u4LoRB0MQOj0bwJuhiaonB 4wXSOghyKqu7UhAWceiFxr KOYyLpUsPIzCyNOmcV6vvm VDCUvsGVHlS7CdaeRnJLwm JINthw2stIuuSMfqRmIbSK Utq6h0pAY6vULhlFV2bQMo pSawYE9jrUDrZDXAGB06qZ WkngEkQ1BbeGXsPhOXQGUv trPcTUfnYPK3aZ0crPLjMY 8eVGKnrnOck6KxGG9bXOVv jVJpZYIkrkubsSEdVCi4zW VbQBLrTwQonXggm6KkTGRo PRdiSM02scXvGZ7qNDzbAU 7qYEueUN0sYASuCQHdCIDc LjYgeCAwLjIgeCAwLjEgY2 2yHvXXrSCcv0GcQ4kiVM8y aXMgZmlsdGVyZWQgdGhyb3 XhjIUmFIMvv6XylKCeVKrx AZ4iDEM2Jx9ruGTsJQKdep U0s5JuQFfySSKgNq6FCVJj pJCZRZC5BA8vMMfsLNTfQ2 KaJ2XoomA3HOZungZCMjlg FhlkbPwgl0JwpFWfFPRoAG xcaWQgNTEwMDIgXFxkYiBP ZfVgArR6BMPxPDvrIoL3GX y4PPJMJlKzWpXrFbM8CzRp IPujSOg9QNe4DKmSJlYeUL m0Grv5BlQ0PEO8VPZ7NRxb dNZiXGboc0BdZgClVVNcQI opaeT7PNQvhzKyh4ZwFQSz JRZkC5xfGhFqASNPTqzcuf IwIFNQRUNJTUVOIEJcZnMy MlxwYXIgDQpccGFyZCANCl xwbGFpblxsdHJjaFxmczIy INWjwODMLCD7OU2jYVQFEg zqnBOzYJSljZonCLlveP4u MQRgBaEzBBNaW6fcLqObKN RbOyZgGWFiW6lzIWYdGX6F R3CxZ3clJP3fSfTvbkLpZS QlwCTdPODfdkXrh2YzKUfv biBsYWJlbGVkIHdpdGggdG mwGMLjpAkuljUhhvJzWO5d IRBRLQQgzT0nMJQzVmSme0 FfnAAec98lcQEcZAQjHEYO HZU7ZEzxFZ9WUbOhwqHzN9 3in8rzyLYul1IxwNMwrAdh fKIaoWFkIMMiyhpcx0LnyG HwMD3naANjUS05TEsvjiOo gQhljxOix5J5VLLjc7V5QJ BmcmFnbWVudHMgKHJhbmdp bmcgZnJvbSBsZXNzIHRoYW 8mRS8zPJByGKTmDoYxwFLx ogOgniKgqRHahAQmkL7rga Qkj22mSUFwJFV4JIJpIJH3 KLXkLSOiwBYsnrAgU6myYO shgGLnUqXIjJIdy2DrS0yr GZ5elUHlQrbmcYJkPOUldQ kpa8AfaPWeOACzr0AxmGYw NCodVL5ySOU8Dj2ybVJyMZ PpknI7w8TgAZwiVUGcYc0W GXVfjAJEXHS7LQ2oDEprYH NxV5EeG6VuixM8DAOojaRU ExueNqrfiAslw3ZwyRSoBA NnIFxcaWQgNTEwMDIgXFxk KnGDZnJrKpA0DVBcWBouBx X1JEh4RUDBDzMkBwBrSpT8 XuXvWtVpDUa9SKf9NKiHOv DsYOl5Kjk7DIHvESA1OYJ3 DJveuPQqWPwyw0JvLgXrDN VuSDfswmF1WMGokbLph9Zj GQFsLBXtS0hzEjKhKUMQFk xmczIwIFNQRUNJTUVOIENc ZnMyMlxwYXIgDQpccGFyZC ANClxwbGFpblxsdHJjaFxm ffDnSTSeeIGPUOA2DS6mEP ANClxsdHJwYXJcbGluMFxy tS8uKNScQqRwEDWjN7efZs VxKX4HP4YzZ4dzKW5pAoQb cyByZWNlaXZlZCBpbiBmb3 JtYWxpbiBsYWJlbGVkIHdp dGggdGhlIHBhdGllbnQncy VaPL7fSZPRBGWamF1sLSYg CfZeq9dsuYRzPXRht1SuVE azIPtaUnlnYKIbnIIGO0Va VVSrBVKyv32rxHD7ilBcZa ViTOSemj1dtK6bEEXacLd0 azRnw4j2H1UvuIKzcoWgL6 YbLEHeb11ukZL6sUClaSMv YxOdX19omhXwRYpfPP3knQ 6jUXLap29mVS3oUFRtQWLv MyBjbSBpbiBncmVhdGVzdC UkhZ4vmgVns84xFWEcWMA2 RMSaMZR1ZOTwQWHxrGWgps RjO2vpWCdprABmWkCUdDEe k6EwP6ifMJ4sxMLkGgvrpV ApZFCchXaqf6AjbUBjFCMx g9UniJMpKOzjRN7cXPF2Ui 7utOUaJVSdhpD4u6ZwOAca KCLyBylnRTCoQIiwo5LaQB XhgPXZf7OmTH6RFQDnauWB SwrmCYQtDLSnvDOSb9WsZU DQIq4khcyzNFPxZQV6c7Si JSAQCDuOL8JOWA1PREXswZ ZLLUB3EV8nYXouHMAnH4Rr S2TbouW1j2vqrXzgv7AxfO OtBA3vnSKvQF9NYMItjiJy DQp9 Disclaimer (test code = [id number]) m1vxaKKzHEGye0xsRDTekY FuZzEwMzNcZnRuYmpcdWMx FStsfcQaSMcji4LwT8WoNa AwMFxhbnNpXGRlZmxhbmcx JVKiJWK7soSjXMSyMEhbTZ RoSFfjZw8yiNYwoQatZgGz NVAap3szzdLYTNlxYwPhH3 26VFPvNUues5tzk2IbMAMl cHNox2L4LTSFcxuemSk8dL lmO18ca9R8HxrwE7sqPHXi XMKhY4DaSO7uTNEfUkx2CH F7SUO0SSXpOZDnL5PsGM8w GMThtJXsBSl2s2efiWskSD AcFEH0a8iwTPwsccTgHV5g ah3bzBj5u0pjrdSdGZQfGI DshBLNHFBwM2ZbvKlvLc1a xXj4sIkpRcorEMK3Zbf0GA 1san42ngg6wBjwOTFyiuxz KdL4UUnfJGSurnkrPSo4YR tnTLLlwUC1AIEgyULpQ1Sl LTNrOJ2lqtl8ZUL3KAnzCQ BcXvE3PORuyFUxKJBhlZvf ZQhuu784POJ5FyWkJX9aR9 Ypg1P4eF6chDGhQZDisWUo IeXkKXGaba5rvPHtAXqam5 YeXOM7rsA9yACieTFhXIEo HF72Dsinq2EdSfcfb8TwH9 2tzXI6DAevi4jbAK4zRpC3 hxRbHFcud7eerF4gDqD1JP svJO6oIG0oCBIkxJ8plxsh XHBnYnJkcmhlYWRccGdicm DeIk0jiYxkFAT6VFziJ5rf sJ1qYfL7PBqqJ8fegK1tQQ z1OPhusOT5GGHxmJ8lNI0y xkhyx1viUKytMXosEYOxny Z2ceZ1AMLbxWQqT0DtbU1t ZAHoQG7qilcbb6nwXDK1JN lyTTSzTMR6CuHpNBXef3Qk cxj8VbRot5YghDSrGAnaV3 8lq422ENVauaFrO3qgbMGp izrurZSnadlvLDoayrC8DI XmzrPqp5IfMFWtEEX4BDik YZejtHKxSZIqiOmne8mhR3 RscGFyXHBsYWluXGYxXGZz MjBcbGFuZzEwMzNcaGljaF hbFMcmGxFvDNHjPQnnW0ya LsJmJ2SkORTeHxJfrLKaZ6 ggVGhpcyByZXBvcnQgbWF5 GJtdQ8k0AAQezlKqzHu6je EuYlDbORAmGTY7SShmjXHf MZUte7OsypzbtKNtJs2xzG JrNAXbqZ0oUIZkVETxCFkv LP6wpLr5HBBQxWGmdYVbRb STSCQwHZ32ktOzAFOIxyva p1Z7TKfhPBWfk9BtmSVkN8 jkl4ZqGSSag80tFD7vx0U6 u8azRAD5ZX7vx2CoEOCksY VvqABpMRCqq0Ycikgfj0Pu GQHpdcJuz5UiYLPsptOinB ZtHHClkiSwgb1fdzGtKSJb FUOxO6QdlgfudNaevbCeYU Oxgq6nuoAyBGD5UPKHPHZu OVHkw0RaeT4dwEATIBL1yV Qcau7bwiXSjHMiIVFemj14 HRRwCG1eB9ghZHSaRHGelf PxnPXkt2TzRPZedQD7yNXd YR3YOlNAu65fOYSvQUYCrq DzGEChoYmbvBB1wfQ5fZ0u IChGREEpLlx+IFRoZSBGRE LdHM2gfeWkl3JhhgCzlFkj LQGwhPPrg3GwqKWqk8VhwE etn7NlsQDvqYRtFX7wMLCt clxwYXIgVVRNQiBMYWJvcm N1u5MeRUQcKJXtYLY2ySgv sbm8KZUckR4rTTWnS7zocy whKUwhPDWzh8CklQ6bfFWV uMZvr0FovNIenFPIsQFhIS 2pkdTuHDqPSYqCCJG7ghOx JIUgx0HiESlaU7gbN24tjC dwpLg5dYJ1CFI2vP1sHwn+ IFxwYXJccGFyIEFwcHJvcH PaNKPasGgdauVsH8CucpHy vD5ztCKhwaJzOP3fEL0hI6 G0oEErDCPxwfGeg9cpXNwf dmUgYmVlbiByZXZpZXdlZC Pwv1JfXYzfQEC4DYnlwcCw bmNsdWRpbmcgSCZFLCBTcG AdaEEaUEV3PQkywaCcarNt OZ3peL2ezXbhaD1xcVLqkO D3hbjnYKYqVOZblBnvFUKj KC2sjZrgaF1gGwHtIlXvHY fgWS8vJFLsN4tulFYeJLLd MKMwM9hgKtJgkZ8voYyaDD xjZjJcZnMyMFxwYXJccGFy XHBsYWluXGYxXGZzMjBcbG FuZzEwMzNcaGljaFxmMVxk MkUeUQMvKOoqX0ogPuAaE7 BlAKVoUnSspWNkC3lgVKxg TFU4TTQgKX8tkWDqZF19aR Gxa5rmXIfvkVhoph3wB62x kQKjJTuuhMvdSDCrs59wa9 YgVLRkhpRaut0wWOWgufX0 lR7fDZNgpNqfZBGtuKEhPU Giw4QdUDpbuEEknnFbIEaj AFSdGRHhzGBhdiT2pkDpxt UdhhWeFBVlfHtuHNFom8Dg BQIoTCsda4Ufcc3tlLDhWZ OzbaWMuCssqUXqzC2rM7Hg SXSnWVIwfw8dEJKhkU6qEQ cac8OczwndPEPvOAXmMCVg wwKaim4dBETikYHYYQ5ANR lcbYIsk8CxumTqM1sIOVD4 NUQwNjYwMjgxKSBleGNlcH RjXFHnku19AMIzaW6vmCwd VOBziR4rvC1scRlqqG9hUa DrTaYcHZleDH9pYYIkF9mq mDQlLETdSWOlI8kjXcJprI 9jaFxmMVxjZjJcZnMyMFxw YXJ9fQ== Embedded Images (test code = [id number]) [facility] GLUCOSE (AUTOMATED)2023-04-09 13:04:56* Test Item Value Reference Range Interpretation Comme nts POCT GLU (test code = [id number]) 240 mg/dL 70-110 H Lab Interpretation (test cod e = 16191-8) Abnormal [facility] GLUCOSE (AUTOMATED)2023-04-09 13:04:56* Test Item Value Reference Range Interpretation Comme nts POCT GLU (test code = 8552811092) 240 mg/dL 70-110 H Lab Interpretation (test cod e = 07332-6) Abnormal [facility] [id number] 00:00:00* Test Item Value Reference Range Interpretation Comme nts POCT PREG (test code = 1605) Negative On board controls acceptable with C Line (test code = 3574) Yes POCT PREG LOT # (test code = 3575) POCT PREG TEST DATE ( test code = 3576) [facility] [id number] 00:00:00* Test Item Value Reference Range Interpretation Comme nts POCT PREG (test code = 1605) Negative On board controls acceptable with C Line (test code = 3574) Yes POCT PREG LOT # (test code = 3575) POCT PREG TEST DATE ( test code = 3576) [facility] [id number] 05:21:47 * Test Item Value Reference Range Interpretation Comments Anticardiolipin Antibody IgG (test code = 2576228402) 11.9 See_Comment H [Automated message] The system which generated this result transmitted reference range: 0.0 - 10.0 GPL. The reference range was not used to interpret this result as normal/abnormal . Anticardiolipin Antibody IgM (test code = 2417906349) 1.8 See_Comment [Automated message] The system which generated this result transmitted reference range: 0.0 - 10.0 MPL. The reference range was not used to interpret this result as normal/abnormal . Anticardiolipin Antibody IgA (test code = 1503728215) 1.5 See_Comment [Automated message] The system which [...] 4: 2210-4 Lab Interpretation (test code = 13930-9) [facility] [id number] 05:21:47 * Test Item Value Reference Range Interpretation Comments Anticardiolipin Antibody IgG (test code = 8744377534) 11.9 See_Comment H [Automated message] The system which generated this result transmitted reference range: 0.0 - 10.0 GPL. The reference range was not used to interpret this result as normal/abnormal . Anticardiolipin Antibody IgM (test code = 7224461731) 1.8 See_Comment [Automated message] The system which generated this result transmitted reference range: 0.0 - 10.0 MPL. The reference range was not used to interpret this result as normal/abnormal . Anticardiolipin Antibody IgA (test code = 2963899614) 1.5 See_Comment [Automated message] The system which [...] 4: 2210-4 Lab Interpretation (test code = 04063-6) [facility] [id number] 05:21:31* Test Item Value Reference Range Interpretation Comments Anti-B2 Glycoprotein 1 IgG (test code = 3532711733) 2.8 See_Comment [Automated message] The system which generated this result transmitted reference range: 0.0 - 20.0 SGU. The reference range was not used to interpret this result as normal/abnormal. Anti-B2 Glycoprotein 1 IgM (test code = 7347509230) 0.6 See_Comment [Automated message] The system which generated this result transmitted reference range: 0.0 - 20.0 SMU. The reference range was not used to interpret this result as normal/abnormal. Anti-B2 Glycoprotein 1 IgA (test code = 0418251298) 2.6 See_Comment [Automated message] The system which [...] losses and/or thrombocytopenia. TEST PERFORMED AT:[facility]. [id number] [place] [address] [place] [address] Lab Interpretation (test code = 42649-0) Normal [facility] [id number] 05:21:31* Test Item Value Reference Range Interpretation Comments Anti-B2 Glycoprotein 1 IgG (test code = 2158891782) 2.8 See_Comment [Automated message] The system which generated this result transmitted reference range: 0.0 - 20.0 SGU. The reference range was not used to interpret this result as normal/abnormal. Anti-B2 Glycoprotein 1 IgM (test code = 0678469727) 0.6 See_Comment [Automated message] The system which generated this result transmitted reference range: 0.0 - 20.0 SMU. The reference range was not used to interpret this result as normal/abnormal. Anti-B2 Glycoprotein 1 IgA (test code = 4828877341) 2.6 See_Comment [Automated message] The system which [...] losses and/or thrombocytopenia. TEST PERFORMED AT:[facility]. [id number] [place] [address] [place] [address] Lab Interpretation (test code = 24148-4) Normal [facility] GLUCOSE (AUTOMATED)2022-12-11 15:26:47* Test Item Value Reference Range Interpretation Comme nts POCT GLU (test code = 0046963233) 91 mg/dL 70-110 Lab Interpretation (test cod e = 35149-8) Normal [facility] GLUCOSE (AUTOMATED)2022-12-11 15:26:47* Test Item Value Reference Range Interpretation Comme nts POCT GLU (test code = 6895392749) 91 mg/dL 70-110 Lab Interpretation (test cod e = 49706-4) Normal [facility] [id number] 14:48:00* Test Item Value Reference Range Interpretation Comme nts POCT PREG (test code = 1605) Negative On board controls acceptable with C Line (test code = 3574) Yes POCT PREG LOT # (test code = 3575) POCT PREG TEST DATE ( test code = 3576) Lab Interpretation (test cod e = 26018-4) Normal [facility] [id number] 14:48:00* Test Item Value Reference Range Interpretation Comme nts POCT PREG (test code = 1605) Negative On board controls acceptable with C Line (test code = 3574) Yes POCT PREG LOT # (test code = 3575) POCT PREG TEST DATE ( test code = 3576) Lab Interpretation (test cod e = 93954-0) [facility] SARS-COV-2 ANTIGEN (BINAX NOW)2022-11-29 17:40:00* Test Item Value Reference Range Interpretation Comme nts POCT SARS-COV-2 ANTIGEN (marie t code = 74698-0) Not Detected Not Detected On board controls acceptable with C Line (test code = 3574) Yes [facility] SARS-COV-2 ANTIGEN (BINAX NOW)2022-11-29 17:40:00* Test Item Value Reference Range Interpretation Comme nts POCT SARS-COV-2 ANTIGEN (marie t code = 64945-8) Not Detected Not Detected On board controls acceptable with C Line (test code = 3574) Yes [facility] MOLECULAR [id number] 17:14:55* Test Item Value Reference Range Interpretation Comme nts POCT Molecular Strep (test c ode = 62244-8) Negative Negative Lab Interpretation (test cod e = 92237-7) Normal [facility] MOLECULAR [id number] 17:14:55* Test Item Value Reference Range Interpretation Comme nts POCT Molecular Strep (test c ode = 60658-7) Negative Negative Lab Interpretation (test cod e = 93182-3) Normal [facility] GLUCOSE (AUTOMATED)2022-09-15 16:40:41* Test Item Value Reference Range Interpretation Comme nts POCT GLU (test code = 9123129993) 133 mg/dL 70-110 H Lab Interpretation (test cod e = 89599-5) Abnormal [facility] GLUCOSE (AUTOMATED)2022-09-15 16:40:41* Test Item Value Reference Range Interpretation Comme nts POCT GLU (test code = 5260543209) 133 mg/dL 70-110 H Lab Interpretation (test cod e = 51186-7) Abnormal [facility] [id number] 16:35:00* Test Item Value Reference Range Interpretation Comme nts POCT PREG (test code = 1605) Negative On board controls acceptable with C Line (test code = 3574) Yes POCT PREG LOT # (test code = 3575) POCT PREG TEST DATE ( test code = 3576) Lab Interpretation (test cod e = 75420-8) Normal [facility] [id number] 16:35:00* Test Item Value Reference Range Interpretation Comme nts POCT PREG (test code = 1605) Negative On board controls acceptable with C Line (test code = 3574) Yes POCT PREG LOT # (test code = 3575) POCT PREG TEST DATE ( test code = 3576) Lab Interpretation (test cod e = 33025-4) Normal [facility]; SPECIAL COAGULATION [id number] 22:21:22Related Clinical History The patient is 37 years old female who has been followed by pain management for radicular pain. She recently had sacroiliac injections which did not help with her symptoms. Me dications: Not currently taking any antiplatelet or anticoagulant medications Family History: No known family history of coagulation disorder 09/05/2022 4:21 PM [facility] SERVICESPertinent Lab Results ? Ref. Range [...] IgA? <15.0 APL? 0.1? 09/05/2022 4:21 PM [facility] SERVICESCoag DMT interpretation This patient has [...] or complications in women. 09/05/2022 4:21 PM [facility] SERVICESRecommendations If clinically indicated, repeat the antiphospholipid antibody panel in 12 weeks, to evaluate the patient for antiphospholipid syndrome. ? 09/05/2022 4:21 PM [facility] CenterRa. Janayout- [id number] Lupus Anticoagulant Reflexive [id number] 14:40:11* Test Item Value Reference Range Interpretation Comme nts Miscellaneous Test (test code = 8104162325) See scanned report Performing Lab (test code = 3299157466) [facility]ANTICARDIOLIPIN [id number] 03:44:30 * Test Item Value Reference Range Interpretation Comments Anticardiolipin Antibody IgG (test code = 7538395760) 20.9 See_Comment H [Automated message] The system which generated this result transmitted reference range: 0.0 - 10.0 GPL. The reference range was not used to interpret this result as normal/abnormal . Anticardiolipin Antibody IgM (test code = 6179155325) 1.5 See_Comment [Automated message] The system which generated this result transmitted reference range: 0.0 - 10.0 MPL. The reference range was not used to interpret this result as normal/abnormal . Anticardiolipin Antibody IgA (test code = 7502076161) 0.1 See_Comment [Automated message] The system which [...] 4: 2210-4 Lab Interpretation (test code = 34372-5) Abnormal [facility]ANTIC[facility] [id number] 03:44:30 * Test Item Value Reference Range Interpretation Comments Anticardiolipin Antibody IgG (test code = 4274143041) See_Comment H [Automated message] The system which generated this result transmitted reference range: 0.0 - 10.0 GPL. The reference range was not used to interpret this result as normal/abnormal . Anticardiolipin Antibody IgM (test code = 0307854017) See_Comment [Automated message] The system which generated this result transmitted reference range: 0.0 - 10.0 MPL. The reference range was not used to interpret this result as normal/abnormal . Anticardiolipin Antibody IgA (test code = 8306832773) See_Comment [Automated message] The system which generated [...] 4: 2210-4 Lab Interpretation (test code = 96806-3) Abnormal [facility] GLYCOP[facility]OTEIN I [id number] 03:40:36* Test Item Value Reference Range Interpretation Comments Anti-B2 Glycoprotein 1 IgG (test code = 6692958929) 3.0 See_Comment [Automated message] The system which generated this result transmitted reference range: 0.0 - 20.0 SGU. The reference range was not used to interpret this result as normal/abnormal. Anti-B2 Glycoprotein 1 IgM (test code = 6858187512) 1.5 See_Comment [Automated message] The system which generated this result transmitted reference range: 0.0 - 20.0 SMU. The reference range was not used to interpret this result as normal/abnormal. Anti-B2 Glycoprotein 1 IgA (test code = 3616321722) 5.1 See_Comment [Automated message] The system which [...] losses and/or thrombocytopenia. TEST PERFORMED AT:[facility]. [address] [place] [address].[facility] [place] [address] Lab Interpretation (test code = 54253-8) Normal [facility] GLY[facility]OTEIN I [id number] 03:40:36* Test Item Value Reference Range Interpretation Comments Anti-B2 Glycoprotein 1 IgG (test code = 4861255672) See_Comment [Automated message] The system which generated this result transmitted reference range: 0.0 - 20.0 SGU. The reference range was not used to interpret this result as normal/abnormal. Anti-B2 Glycoprotein 1 IgM (test code = 1392241458) See_Comment [Automated message] The system which generated this result transmitted reference range: 0.0 - 20.0 SMU. The reference range was not used to interpret this result as normal/abnormal. Anti-B2 Glycoprotein 1 IgA (test code = 5500319363) See_Comment [Automated message] The system which generated [...] losses and/or thrombocytopenia. TEST PERFORMED AT:[facility]. [address] [place] [address] [place] [address] Lab Interpretation (test code = 38113-5) Normal [facility] [id number] 17:19:00* Test Item Value Reference Range Interpretation Comme [facility] POCT PREG (test code = 1605) Negative On board controls acceptable with C Line (test code = 3574) Yes POCT PREG LOT # (test code = 3575) POCT PREG TEST DATE ( test code = 3576) [facility] [id number] 17:19:00* Test Item Value Reference Range Interpretation Comme [facility] POCT PREG (test code = 1605) Negative On board controls acceptable with C Line (test code = 3574) Yes POCT PREG LOT # (test code = 3575) POCT PREG TEST DATE ( test code = 3576) [facility] [id number] 20:18:00* Test Item Value Reference Range Interpretation Comme nts POCT PREG (test code = 1605) Negative On board controls acceptable with C Line (test code = 3574) Yes POCT PREG LOT # (test code = 3575) POCT PREG TEST DATE ( test code = 3576) Lab Interpretation (test cod e = 24155-1) Normal [facility] [id number] 20:18:00* Test Item Value Reference Range Interpretation Comme nts POCT PREG (test code = 1605) Negative On board controls acceptable with C Line (test code = 3574) Yes POCT PREG LOT # (test code = 3575) POCT PREG TEST DATE ( test code = 3576) Lab Interpretation (test cod e = 40235-1) [id number] 17:01:00* Test Item Value Reference Range Interpretation Comme nts POCT PREG (test code = 1605) Negative On board controls acceptable with C Line (test code = 3574) Yes POCT PREG LOT # (test code = 3575) POCT PREG TEST DATE ( test code = 3576) [facility] [id number] 17:01:00* Test Item Value Reference Range Interpretation Comme nts POCT PREG (test code = 1605) Negative On board controls acceptable with C Line (test code = 3574) Yes POCT PREG LOT # (test code = 3575) POCT PREG TEST DATE ( test code = 3576) [facility] History and Physical Notes Date/Time [...] 05/2020, and the results were benign. 01/07/21 José Luke is a 35 year old female [...] mouth in the morning. 90 tablet 1 Vlzitnhkdl-Vckrfkpgboeeo-Bdgg 50-300-40 mg per capsule TAKE 1 CAPSULE BY MOUTH EVERY 6 HOURS NEEDED fluticasone propionate 50 mcg/actuation nasal spray Use 1 Combs in each nostril in the morning. 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: [employer]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: [employer] Tobacco Use Smoking status: Every Day Smokeless tobacco: Current Tobacco comments: vapes Vaping Use Vaping status: Some Days Substance and Sexual Activity Alcohol use: No Drug use: No Sexual activity: Yes Partners: Male control/protection: Inserts Social History Narrative Plans to go back to school for training as a veterinary surgery technician Social Determinants of Health Financial Resource [...] 0 min Stress: Stress Concern Present (03/06/2023) [employer] - Occupational Stress Questionnaire Feeling of Stress : To some extent Social Connections: Moderately Isolated (03/06/2023) Social Connection and Isolation Panel [NHANES] Frequency of Communication with Friends and Family: Twice a week Frequency of Social Gatherings with Friends and Family: Once a week Attends Sikh Services: Never Active Member of Clubs or [...] 03/24/2024 11:03 AM Colon and Rectal Surgery [facility] 2023-04-09 08:44:32 Formatting of this n [...] N/A 05/28/2020 Surgeon: Norbert Diaz MD; Location: [place] [facility] COLONOSCOPY 05/28/2020 COLPOSCOPY HEMORRHOIDECTOMY N/A 11/14/2021 Surgeon: Azalia Michel MD; Location: [facility] SACROILIAC JOINT INJECTION Right 10/18/2020 Surgeon: Curtis Morley MD; Location: [place] [facility] No current facility-administered medications for this encounter. 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 Informed consent obtained/verified. Education provided to the patient about the procedure. Norbert Diaz MD [facility] Division of Gastroenterology and Hepatology [facility]
--- NOTE | 2024-08-30 22:15 | RAD REPORT ---
EXAM: TRANSVAG OB HISTORY: ABD PAIN COMPARISON: None TECHNIQUE: Multiple grayscale and color Doppler images were obtained in a transabdominal and transvag inal pelvic ultrasound. Spectral analysis of the Doppler waveforms of the ovaries were performed. FINDINGS: UTERUS: There is an intrauterine gestational sac. This contains a yolk sac and pole. [place]-rump length: 1.2 cm which estimates gestational age at 7 week 4 day. A heart rate is detected at 149 bpm. No evidence of subchorionic hemorrhage. No free fluid is seen in the pelvis. RIGHT OVARY: 2.6 cm simple cyst in the right ovary. This does not require follow-up. Vascular flow pr esent. LEFT OVARY: Normal flow without focal mass. IMPRESSION: Single live intrauterine with estimated age of 7 week 4 day.
[2024-08-31] MEDS ORDERED: NA CHLORIDE 0.9% 1,000 ML ONE (00:32)
[2024-08-31 00:48] LABS: Absolute Lymphocytes (CBC) 2.2 K/uL (0.7-4.9); Absolute Monocytes 0.4 K/uL (0.1-1.3); Absolute Neutrophil 4.2 K/uL (1.8-8.0); Basophils % 0.3 % (0-1.3); Eosinophils % 0.5 % (0-4.4); Hematocrit 35.6 % (36.0-45.0); Hemoglobin 12.1 g/dL (12.0-15.0); Lymphocytes % 31.9 % (15.3-44.8); MCH 30.9 pg (27.0-35.0); MCHC 34.1 g/dL (32.0-36.0); MCV 90.7 fL (80-100); MPV 10.9 fL (7.6-11.3); Monocytes % 6.2 % (3.3-12.3); Neutrophils % 61.1 % (41.7-73.7); Nucleated Red Blood Cells % 0.1 % (0-0); Platelets 212 thou/uL (152-406); RBC Red Blood Cell Count 3.93 M/uL (3.86-4.86); Red Cell Distribution Width 13.3 % (12.1-15.2)
[2024-08-31 01:01] LABS: SARS-CoV-2 Antigen CONTROL BLUE LINE VIS/BG OK; SARS-CoV-2 Antigen Rapid Res Negative (Negative)
[2024-08-31 01:09] LABS: Specific Gravity > 1.030 (1.005-1.030); Sqamous Epithelial <5 /HPF (None Seen); Urine Bacteria <20 /HPF (<20); Urine Bilirubin NEGATIVE (Negative); Urine Blood Negative (Negative); Urine Clarity Clear (Clear); Urine Color Light-Yellow (Yellow); Urine Culture Reflex Order NOT NEEDED; Urine Glucose 4+ (Over) (Negative); Urine Ketones NEGATIVE (Negative); Urine Micro Reflex YN NO BILL MICROSCOPIC; Urine Nitrite NEGATIVE (Negative); Urine Protein NEGATIVE (Negative); Urine RBC <5 /HPF (None Seen); Urine Urobilinogen Normal (Normal); Urine WBC <5 /HPF (<5); Urine pH 6.5 (5.0-7.0)
[2024-08-31 01:13] LABS: ALT/SGPT 17 U/L (13-56); AST/SGOT < 10 U/L (15-37); Albumin 3.1 g/dL (3.4-5.0); Albumin/Globulin Ratio 0.9 (1.1-1.8); Alkaline Phosphatase 46 U/L (45-117); Anion Gap 11.7 mEq/L (5.0-15.0); BETA HYDROXYBUTYRATE 0.09 mmol/L (0.02-0.27); BUN Blood Urea Nitrogen 13 mg/dL (7-18); Bicarbonate 24 mEq/L (21-32); Bilirubin Direct < 0.2 mg/dL (0-0.2); Bilirubin Total 0.2 mg/dL (0.2-1.0); Globulin 3.3 g/dL (2.3-3.5); Glomerular Filtration Rate 131 ml/min (=/>90); Glucose Level 129 mg/dL (74-106); HCG, Quantitative 72667 mIU/mL (1-3); Lipase 78 U/L (13-75); Phosphorus 3.4 mg/dL (2.5-4.9); Potassium 3.7 mEq/L (3.5-5.1); Protein, Total 6.4 g/dL (6.4-8.2); Sodium Level 139 mEq/L (136-145)
--- NOTE | 2024-08-31 01:20 | EDPHYS ---
Physician Documentation [facility] Name: Kelsey Harrell Age: 39 yrs Sex: Female : 1985 Arrival Date: 08/30/2024 Time: 21:01 Bed 16 Private MD: ED Physician Ulises Ball HPI: 08/30 21:25 This 39 yrs old Female presents to ER via Ambulatory with complaints of sb4 Blurred Vision, High Blood Sugar, Low Back Pain, EST 7 WKS GESTATION. 21:25 patient approximately 7 weeks gestation presents today with lower abdominal sb4 cramping and low back pain associated with nausea and swollen eyes. Additionally, she states that her blood sugar has been elevated. She denies any vomiting, diarrhea, vaginal bleeding. Does report a history of type 2 diabetes, is on metformin and insulin daily that she reports compliance with. 21:28 The estimated gestational age is 7 weeks. course: care: private OB sb4 physician, Leakage of Fluid: none appreciated, Ultrasound: the patient had an ultrasound, Risk/complications: type II diabetes, advanced maternal age. MANAGER BRIDGE: 21:08 Not cp4 21:28 8, Full Term 1, Premature 0, 0, Living 1, Verified sb4 Historical: - Allergies: 21:08 Latex; cp4 21:08 Buspirone; cp4 - PMHx: 21:08 Chronic pain (neuropathy); diabetes mellitus; neuropathy; Skeletal bone disorder cp4 (neuropathy); - Immunization history:: Adult Immunizations up to date. - Infectious Disease History:: Denies. - Social history:: Smoking status: Patient denies any tobacco usage or history of. ROS: 21:27 Constitutional: Negative for fever, chills, and weight loss, sb4 21:27 Eyes: Positive for swelling, 21:27 Abdomen/GI: Positive for abdominal pain, nausea, 21:27 All other systems are negative, Exam: 21:28 Constitutional: This is a well developed, well nourished patient who is awake, alert, sb4 and in no acute distress. Head/Face: Normocephalic, atraumatic. Eyes: Extra-ocular motions intact. Periorbital areas with no swelling, redness, or edema. Cardiovascular: Regular rate and rhythm with a normal S1 and S2. Respiratory: No increased work of breathing, no retractions or nasal flaring. Skin: Warm, dry with normal turgor. Normal color with no rashes, no lesions, and no evidence of cellulitis. 21:28 Abdomen/GI: Inspection: abdomen appears normal, Bowel sounds: normal, Palpation: soft, mild abdominal tenderness, in the suprapubic area, right lower quadrant and left lower quadrant, Vital Signs: 21:06 BP 120 / 80; Pulse 85; Resp 18; Temp 98.7; Pulse Ox 100% ; Weight 74.84 kg; Height 5 cp4 ft. 4 in. ; Pain 5/10; 08/31 01:26 BP 99 / 57; Pulse 69; Resp 18; Pulse Ox 100% ; ay 01:52 BP 96 / 73; Pulse 67; Resp 14; Pulse Ox 98% on R/A; ay 08/30 21:06 Body Mass Index 28.32 (74.84 kg, 162.56 cm) cp4 08/30 21:06 Pain Scale: Adult cp4 Sonya Coma Score: 08/30 21:30 Eye Response: spontaneous(4). Motor Response: obeys commands(6). Verbal Response: ay oriented(5). Total: 15. Visual Acuity: 08/31 01:18 Left Eye Visual acuity 20/25, Normal; Right Eye Visual acuity 20/25, Normal; Both Eyes ay Visual acuity 20/25; Without Lenses; MDM: 08/30 21:13 Medical Screening Exam initiated sb4 08/31 00:51 Data reviewed: vital signs, nurses notes, lab test result(s), radiologic studies, and sb4 as a result, I will discharge patient. Care significantly affected by the following chronic conditions: Diabetes. Counseling: I had a detailed discussion with the patient and/or guardian regarding the historical points, exam findings, and any diagnostic results supporting the discharge/admit diagnosis, lab results, radiology results, the need for outpatient follow up, an OB/Gyne specialist, to return to the emergency department if symptoms worsen or persist or if there are any questions or concerns that arise at home. 08/30 21:14 Order name: BETA HYDROXYBUTYRATE; Complete Time: 01:14 sb4 08/30 21:14 Order name: Basic Metabolic Panel; Complete Time: : sb4 08/30 21:14 Order name: CBC with Diff; Complete Time: 00:59 sb4 08/30 21:14 Order name: Hepatic Function; Complete Time: 01:14 sb4 08/30 21:14 Order name: Lipase; Complete Time: 01:14 sb4 08/30 21:14 Order name: Phosphorus; Complete Time: 01:14 sb4 08/30 21:14 Order name: UAM; Complete Time: 01:10 sb4 08/30 21:14 Order name: HCG-Quantitative; Complete Time: 01:14 sb4 08/30 21:14 Order name: SARS RAPID; Complete Time: 01:03 sb4 08/30 21:14 Order name: Flu; Complete Time: 01:07 sb4 08/30 21:15 Order name: TSH; Complete Time: :14 sb4 08/31 00:15 Order name: UDS; Complete Time: 01:46 sb4 08/31 00:32 Order name: Glucose, Ancillary Testing; Complete Time: 00:35 EDMS 08/30 22:08 Order name: TRANSVAG OB; Complete Time: 22:19 EDMS 08/30 21:14 Order name: Cardiac monitoring; Complete Time: 00:26 sb4 08/30 21:14 Order name: IV Saline Lock; Complete Time: 00:27 sb4 08/30 21:14 Order name: O2 Per Protocol; Complete Time: 00:27 sb4 08/30 21:14 Order name: O2 Sat Monitoring sb4 08/30 21:14 Order name: Accucheck; Complete Time: 00:26 sb4 08/30 21:27 Order name: Visual Acuity; Complete Time: 00:45 sb4 Administered Medications: 00:33 Drug: NS 0.9% IV 1000 ml IV at 1000 ml once; to be given as a bolus over 60 minutes ay Route: IV; Rate: 1000 ml; Site: left antecubital; 01:54 Follow up: Response: No adverse reaction; IV Status: Completed infusion; IV Intake: ay 1000ml Disposition: 02:03 Co-signature as Attending Physician, Ulises Ball MD I reviewed the patient's care rt provided by the Advanced Practice Provider and agree with the diagnosis and treatment plan. Disposition Summary: 08/31/24 01:19 Discharge Ordered Notes: Location: Home sb4 Problem: new sb4 Symptoms: have improved sb4 Condition: Stable sb4 Diagnosis - Lower abdominal pain, unspecified sb4 - 5 weeks gestation of sb4 - Dry eye syndrome of bilateral lacrimal glands sb4 Followup: sb4 - With: Private Physician - When: 2 - 3 days - Reason: Recheck today's complaints, Re-evaluation by your physician Discharge Instructions: - Discharge Summary Sheet sb4 - Abdominal Pain During sb4 - Dry Eye sb4 - Viral Illness, Adult sb4 Forms: - Patient Portal Instructions sb4 - Leadership Thank You Letter sb4 Signatures: Dispatcher [employer] EDMS Michelle Medrano PA-C PA-C sb4 Ulises Ball MD MD rt Melissa Leung cp4 Maria Alejandra Hodges, RN RN ay Corrections: (The following items were deleted from the chart) 08/30 21:15 21:15 BETA HYDROXYBUTYRATE+C.LAB.BRZ ordered. EDMS EDMS 21:15 21:15 BASIC METABOLIC PANEL+C.LAB.BRZ ordered. EDMS EDMS 21:15 21:15 CBC+H.LAB.BRZ ordered. EDMS EDMS 21:15 21:15 HEPATIC FUNCTION+C.LAB.BRZ ordered. EDMS EDMS 21:15 21:15 LIPASE+C.LAB.BRZ ordered. EDMS EDMS 21:15 21:15 PHOSPHORUS+C.LAB.BRZ ordered. EDMS EDMS 21:15 21:15 Urinalysis W/Microscopic+U.LAB.BRZ ordered. EDMS EDMS 21:15 21:15 QUANTITATIVE HCG+C.LAB.BRZ ordered. EDMS EDMS 21:15 21:15 SARS-COV-2 Antigen Rapid+I.LAB.BRZ ordered. EDMS EDMS 21:15 21:15 Influenza Screen (A \T\ B)+BA.LAB.BRZ ordered. EDMS EDMS 21:15 21:15 Transvaginal Study (Probe)+US.RAD.BRZ ordered. EDMS EDMS 21:15 21:15 THYROID STIMULAT HORMONE+C.LAB.BRZ ordered. EDMS EDMS
--- NOTE | 2024-08-31 01:20 | ER ---
Nurse's Notes [facility] Name: Kelsey Harrell Age: 39 yrs Sex: Female : 1985 Arrival Date: 08/30/2024 Time: 21:01 Bed 16 Private MD: Diagnosis: Lower abdominal pain, unspecified;5 weeks gestation of ;Dry eye syndrome of bilateral lacrimal glands Presentation: 08/30 21:06 Chief complaint: Patient states: blood sugar of 301, eye swelling with blurred vision, cp4 abdominal pain and low back pain that started today. Coronavirus screen: Client denies travel out of the [place] in the last 14 days. At this time, the client does not indicate any symptoms associated with coronavirus-19. Ebola Screen: Patient negative for fever greater than or equal to 101.5 degrees Fahrenheit, and additional compatible Ebola Virus Disease symptoms Patient denies exposure to infectious person. Patient denies travel to an Ebola-affected area in the 21 days before illness onset. No symptoms or risks identified at this time. Initial Sepsis Screen: Does the patient meet any 2 criteria? No. Patient's initial sepsis screen is negative. Does the patient have a suspected source of infection? No. Patient's initial sepsis screen is negative. Risk Assessment: Do you want to hurt yourself or someone else? Patient reports no desire to harm self or others. Onset of symptoms was August 30, 2024. 21:06 Method Of Arrival: Ambulatory cp4 21:06 Acuity: LENA 3 cp4 Triage Assessment: 21:08 General: Appears in no apparent distress. uncomfortable, Behavior is calm, cooperative, cp4 appropriate for age. Pain: Complains of pain in back and abdomen. 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 - Infectious Disease History:: Denies. - Social history:: Smoking status: Patient denies any tobacco usage or history of. Screenin:30 [facility] ED Fall Risk Assessment (Adult) History of falling in the last 3 months, ay including since admission No falls in past 3 months (0 pts) Confusion or Disorientation No (0 pts) Intoxicated or Sedated No (0 pts) Impaired Gait No (0 pts) Mobility Assist Device Used No (0 pt) Altered Elimination No (0 pt) Score/Fall Risk Level 0 - 2 = Low Risk Oriented to surroundings, Maintained a safe environment, Educated pt \T\ family on fall prevention, incl call for assistance when getting out of bed. Abuse screen: Denies threats or abuse. Nutritional screening: No deficits noted. Tuberculosis screening: No symptoms or risk factors identified. Assessment: 21:30 General: Appears in no apparent distress. comfortable, Behavior is calm, cooperative. ay Pain: Complains of pain in lower back. Neuro: Level of Consciousness is awake, alert, obeys commands, Oriented to person, place, time, situation, Speech is normal. Cardiovascular: Denies chest pain, Capillary refill < 3 seconds. Respiratory: Airway is patent Respiratory effort is even, unlabored, Respiratory pattern is regular, symmetrical. GI: Abdomen is round. : No signs and/or symptoms were reported regarding the genitourinary system. EENT: Reports blurred vision in both eyes. Vital Signs: 21:06 BP 120 / 80; Pulse 85; Resp 18; Temp 98.7; Pulse Ox 100% ; Weight 74.84 kg; Height 5 cp4 ft. 4 in. ; Pain 5/10; 08/31 01:26 BP 99 / 57; Pulse 69; Resp 18; Pulse Ox 100% ; ay 01:52 BP 96 / 73; Pulse 67; Resp 14; Pulse Ox 98% on R/A; ay 08/30 21:06 Body Mass Index 28.32 (74.84 kg, 162.56 cm) cp4 08/30 21:06 Pain Scale: Adult cp4 Visual Acuity: 01:18 Left Eye Visual acuity 20/25, Normal; Right Eye Visual acuity 20/25, Normal; Both Eyes ay Visual acuity 20/25; Without Lenses; Sonya Coma Score: 08/30 21:30 Eye Response: spontaneous(4). Motor Response: obeys commands(6). Verbal Response: ay oriented(5). Total: 15. ED Course: 21:03 Patient arrived in ED. [id number] 21:05 [facility] Medrano [facility]. sb4 21:05 Ulises Ball MD is Attending Physician. sb4 21:08 Triage completed. cp4 21:08 Arm band placed on right wrist. Patient placed in waiting room. cp4 21:30 Inserted saline lock: 22 gauge in left antecubital area, using aseptic technique. ay 22:08 TRANSVAG OB In Process Unspecified. EDMS 23:49 Maria Alejandra Hodges, RN is Primary Nurse. ay 08/31 00:26 Flu Sent. ay 00:26 SARS RAPID Sent. ay 00: TSH Sent. ay 00: UAM Sent. ay 00: BETA HYDROXYBUTYRATE Sent. ay 00: Basic Metabolic Panel Sent. ay 00: CBC with Diff Sent. ay 00: Hepatic Function Sent. ay 00: Lipase Sent. ay 00: Phosphorus Sent. ay 00:46 COVID swab sent to lab. Flu and/or RSV swab sent to lab. ay 01:52 No provider procedures requiring assistance completed. IV discontinued, intact, ay bleeding controlled, No redness/swelling at site. Pressure dressing applied. Administered Medications: 00:33 Drug: NS 0.9% IV 1000 ml IV at 1000 ml once; to be given as a bolus over 60 minutes ay Route: IV; Rate: 1000 ml; Site: left antecubital; 01:54 Follow up: Response: No adverse reaction; IV Status: Completed infusion; IV Intake: ay 1000ml Intake: 01:54 IV: 1000ml; Total: 1000ml. ay Outcome: :19 Discharge ordered by . sb4 01:52 Discharged to home ambulatory, ay 01:52 Condition: stable 01:52 Discharge instructions given to patient, Instructed on discharge instructions, follow up and referral plans. Demonstrated understanding of instructions, follow-up care, 01:55 Patient left the ED. ay Signatures: Dispatcher [employer] EDMS Ashleigh GloriaMichelle Kinney PA-C PA-C sb4 Melissa Leung cp4 Maria Alejandra Hodges, BUCKY RN ay
[2024-08-31 01:26] LABS: Barbiturates NEGATIVE (NEGATIVE); Benzodiazepines NEGATIVE (NEGATIVE); Cocaine NEGATIVE (NEGATIVE); METHAMPHETAM NEGATIVE (NEGATIVE); Methadone NEGATIVE (NEGATIVE); Opiates NEGATIVE (NEGATIVE); Phencyclidine NEGATIVE (NEGATIVE); THC Cannibis NEGATIVE (NEGATIVE)
[2024-08-31 02:47] VITALS: TEMP 98.7
[2024-08-31 02:50] VITALS: BP 96/73; O2SAT 98
== END 2024-08-31 01:55 | disposition home or self-care (01) ==
LOC: ER 21:01
DX: R10.30 Lower abdominal pain, unspecified (principal); O26.891 Other specified pregnancy related conditions, first trimester; Z3A.01 Less than 8 weeks gestation of pregnancy; H04.123 Dry eye syndrome of bilateral lacrimal glands; O24.311 Unspecified pre-existing diabetes mellitus in pregnancy, first trimester; E11.40 Type 2 diabetes mellitus with diabetic neuropathy, unspecified; Z88.8 Allergy status to other drugs, medicaments and biological substances; Z91.040 Latex allergy status
CPT/HCPCS: 85025; 81001; 80048; 36415; 84100; 82947; 80076; 84702; 84443; 83690; 82010; 80307; 87804 ×2; 76813; 96360; 99284; 87811; J7030